=== PATIENT | male | born 1950 | race Caucasian/White ===

== ENCOUNTER 2023-07-18 06:02 | Emergency (ER) | payer MEDICARE, MEDICAID, SELFPAY ==
[2023-07-18] VITALS (13 sets, daily range): BP systolic 99–119; BP diastolic 48–67; PULSE 67–82; TEMP 37.1; O2SAT 92–97; BMI 41.6
[2023-07-18 06:21] LABS: Basophils Absolute Auto 0.1 10^3/uL (0.0-0.1); Basophils Percent Auto 0.8 % (0.2-2.0); Eosinophils Absolute Auto 0.2 10^3/uL (0.0-0.7); Eosinophils Percent Auto 2.5 % (0.9-7.0); Hematocrit 27.7 % (42.0-54.0); Hemoglobin 8.5 g/dL (14.0-18.0); Immature Granulocytes Abs Auto 0.04 10^3/uL (0.00-0.03); Immature Granulocytes Pct Auto 0.6 % (0.0-0.5); Lymphocytes Absolute Auto 1.2 10^3/uL (1.2-3.8); Lymphocytes Percent Auto 18.9 % (20.5-60.0); Mean Corpuscular HGB Conc 30.7 g/dL (29.9-35.2); Mean Corpuscular Hemoglobin 32.9 pg (25.9-34.0); Mean Corpuscular Volume 107.4 fL (80.0-94.0); Mean Platelet Volume 12.7 fL (9.5-13.5); Monocytes Absolute Auto 0.4 10^3/uL (0.3-0.8); Monocytes Percent Auto 5.8 % (1.7-12.0); Neutrophils Absolute Auto 4.6 10^3/uL (1.4-6.5); Neutrophils Percent Auto 71.4 % (43.0-75.0); Platelet Count 126 10^3/uL (150-450); Red Blood Count 2.58 10^6/uL (4.70-6.10); Red Cell Distribution Width 15.9 % (11.0-15.0); White Blood Count 6.4 10^3/uL (4.0-11.0)
--- NOTE | 2023-07-18 06:23 | ED.CHESTPAI1 ---
HPI - Chest Pain General Chief Complaint: Chest Pain Stated Complaint: CHEST PAIN Time Seen by Provider: 07/18/23 06:04 Source: patient Mode of arrival: ambulance Limitations: no limitations History of Present Illness HPI narrative: This 73-year-old male with a history of coronary artery disease status post bypass surgery in [address] Verdugo, cardiology at [facility], is brought to the emergency department by EMS from home for evaluation of shortness of breath and midsternal chest pain. The patient states his shortness of breath has been coming and going for the past month or 2. It has recently become worse. He has been having intermittent midsternal chest pain with left arm numbness for the past week. 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 He has home oxygen dependent. He denies any fever. He has exertional dyspnea stating to me that he can only walk approximately 20 yards without becoming short of breath. He does not know if he has gained any weight but states his stomach is larger than it typically is and his legs do feel heavy. He denies any dizziness or diaphoresis. No medications were given prior to arrival. He states he takes a daily baby aspirin but does not think he is on any other blood thinners. He describes his chest pain as heaviness. Related Data Home Medications ?Medication ?Instructions ?Recorded ?Confirmed hydroxyzine HCl 50 mg tablet 50 mg PO .pm 07/18/23 07/18/23 lisinopril 2.5 mg tablet 2.5 mg PO DAILY 07/18/23 07/18/23 metformin 750 mg tablet,extended 750 mg PO DAILY 07/18/23 07/18/23 release 24 hr metoprolol tartrate 25 mg tablet 25 mg PO Q12H 07/18/23 07/18/23 nitroglycerin 0.4 mg sublingual 0.4 mg sublingual Q5M PRN chest 07/18/23 07/18/23 tablet pain pantoprazole 20 mg tablet,delayed 20 mg PO Q12H 07/18/23 07/18/23 release paroxetine HCl 10 mg tablet 10 mg PO DAILY 07/18/23 07/18/23 pioglitazone 30 mg tablet 30 mg PO DAILY 07/18/23 07/18/23 simvastatin 40 mg tablet 40 mg PO DAILY 07/18/23 07/18/23 Allergies Allergy/AdvReac Type Severity Reaction Status Date / Time No Known Drug Allergies Allergy Verified 07/18/23 06:05 Review of Systems ROS Status of ROS 10 or more systems reviewed and unremarkable except as noted in history and below Exam Narrative Exam Narrative: Vital signs and Nursing Notes reviewed: He is afebrile with a normal pulse, blood pressure is moderately low at 104/54, his pulse ox is stable on 3 L nasal cannula at 96% General: Awake, alert, oriented, pale, obese male, no respiratory distress, he is speaking in complete sentences HEENT: Normocephalic atraumatic, mucous membranes are moist and pink, eyes are clear, normal conjunctiva, vision is grossly intact, posterior pharynx is normal in appearance. Neck: Supple, no meningeal signs, no anterior or posterior cervical lymphadenopathy, no JVD Chest: Diffusely diminished breath sounds, no wheezing rhonchi or rales appreciated, no accessory muscle use CVS: Regular rate and rhythm S1-S2, systolic ejection murmur grade 2-3/6 at the left sternal border. Pulses are brisk and equal bilaterally ABD: Soft, nondistended, nontender, no rebound guarding or rigidity, bowel sounds are normal, no pulsatile masses appreciated Extremities: Moving all extremities, 2+ pitting edema to the lower extremities Skin: Pale, no skin rash noted Neuro: No focal deficits Constitutional Vital Signs, click to edit/add: Last Vital Signs Temp 98.8 F 07/18/23 06:06 Pulse 67 07/18/23 06:30 Resp 25 H 07/18/23 06:30 BP 111/67 07/18/23 06:30 Pulse Ox 96 07/18/23 06:40 O2 Del Method Nasal Cannula 07/18/23 06:40 O2 Flow Rate 3 07/18/23 06:40 Course Vital Signs Vital signs: Vital Signs Temperature 98.8 F 07/18/23 06:06 Pulse Rate 70 07/18/23 06:06 Respiratory Rate 26 H 07/18/23 06:06 Blood Pressure 104/54 07/18/23 06:06 Pulse Oximetry 96 07/18/23 06:06 Oxygen Delivery Method Nasal Cannula 07/18/23 06:06 Oxygen Delivery Flow Rate 3 07/18/23 06:06 Temperature 98.8 F 07/18/23 06:06 Pulse Rate 67 07/18/23 06:30 Respiratory Rate 25 H 07/18/23 06:30 Blood Pressure 111/67 07/18/23 06:30 Pulse Oximetry 96 07/18/23 06:40 Oxygen Delivery Method Nasal Cannula 07/18/23 06:40 Oxygen Delivery Flow Rate 3 07/18/23 06:40 MDM - Chest Pain MDM Narrative Medical decision making narrative: This 73-year-old male with a history of coronary artery disease status post bypass surgery in 2007 presents for evaluation of several months of increasing shortness of breath with dyspnea on exertion and 1 week of intermittent chest pain/pressure. He takes a daily baby aspirin for anticoagulation but is otherwise not on any Plavix or other blood thinners. The patient has a history of COPD and is oxygen dependent but has never been a smoker. His lungs are diffusely diminished. EKG done upon arrival was a sinus rhythm at 68 bpm with diffusely flattened T waves. CXR shows a large pleural effusion on the left. Hemoglobin is low at 8.5. Creatinine is mildly elevated at 1.31. He was given 20mg IV lasix for the fluid overload. Troponin is 144.6. BNP is pending. A repeat 2 view CXR was ordered due to the limited as the radiologist interpretation was limited by his habitus and position on the bed. Medical Records Data Medical records narrative: The [address] [address] XRay Report Signed Patient: BRIAN MANDEL MR#: [id number] : 1950 Acct:[id number] Age/Sex: 73 / M ADM Date: 07/18/23 Loc: ER Attending Dr: Ordering Physician: Trevor Moreira Date of Service: 07/18/23 Procedure(s): XR chest 1V Accession Number(s): [id number] cc: Trevor Moreira; Physician,Non-Staff M.D.~ The [address] [address] Patient Name: BRIAN MANDEL MRN: [id number] date: 1950 Sex: M Assigned Patient Location: ED.MAIN Current Patient Location: ED.MAIN Accession/Order Number: [id number] Exam Date: 07/18/2023 06:20 Report Date: 07/18/2023 06:42 At the request of: TREVOR MARKER Procedure: XR chest 1V EXAMINATION: XR chest 1V HISTORY: CP ; chest pain, shortness of breath COMPARISON: XR chest 05/23/2020, CT chest 05/23/2020 FINDINGS: LUNGS: Dense opacities obscuring the majority the left lung. Opacities obscuring lateral right costophrenic angle. VASCULATURE: No increased pulmonary vasculature. PLEURA: No pneumothorax, effusion, or pleural thickening. CARDIAC: Cannot assess, but suspected to be enlarged. MEDIASTINUM: Prior sternotomy. BONES: No fracture or visible bone lesion. OTHER: Negative. XR/XR chest 1V IMPRESSION: 1. Examination is very limited due to patient body habitus and AP portable technique. 2. Opacification of majority of left lung. Prior CT study showed cardiomegaly and a large left pericardial fat pad which could account for findings on today's study. Marked pulmonary infiltrates cannot be excluded. 3. Obscuration of right lateral costal phrenic angle; atelectasis versus infiltrates. Lab Data Attestation: I reviewed the patient's lab results. Labs: Lab Results 07/18/23 Range/Units 06:11 WBC 6.4 (4.0-11.0) 10^3/uL RBC 2.58 L (4.70-6.10) 10^6/uL Hgb 8.5 L (14.0-18.0) g/dL Hct 27.7 L (42.0-54.0) % MCV 107.4 H (80.0-94.0) fL MCH 32.9 (25.9-34.0) pg MCHC 30.7 (29.9-35.2) g/dL RDW 15.9 H (11.0-15.0) % Plt Count 126 L (150-450) 10^3/uL MPV 12.7 (9.5-13.5) fL Neut % (Auto) 71.4 (43.0-75.0) % Lymph % (Auto) 18.9 L (20.5-60.0) % Alexander % (Auto) 5.8 (1.7-12.0) % Eos % (Auto) 2.5 (0.9-7.0) % Baso % (Auto) 0.8 (0.2-2.0) % Neut # (Auto) 4.6 (1.4-6.5) 10^3/uL Lymph # (Auto) 1.2 (1.2-3.8) 10^3/uL Alexander # (Auto) 0.4 (0.3-0.8) 10^3/uL Eos # (Auto) 0.2 (0.0-0.7) 10^3/uL Baso # (Auto) 0.1 (0.0-0.1) 10^3/uL Abs Immat Gran (auto) 0.04 H (0.00-0.03) 10^3/uL Imm/Tot Granulo (auto) 0.6 H (0.0-0.5) % PT 11.3 (9.0-11.6) sec INR 1.07 Sodium 141 (136-145) mmol/L Potassium 4.2 (3.5-5.1) mmol/L Chloride 103 (98-107) mmol/L Carbon Dioxide 33.4 H (21.0-32.0) mmol/L Anion Gap 8.8 BUN 18.0 (7.0-18.0) mg/dL Creatinine 1.31 H (0.70-1.30) mg/dL Est GFR ( Amer) >60 (>=60) Est GFR (Non-Af Amer) 53 L (>=60) BUN/Creatinine Ratio 13.7 Glucose 127 H (74-106) mg/dL Calcium 9.1 (8.5-10.1) mg/dL Total Bilirubin 0.6 (0.2-1.0) mg/dL AST 20 (15-37) U/L ALT 13 L (16-63) U/L Alkaline Phosphatase 94 (46-116) U/L Troponin I High Sens 144.6 H* (4.0-76.1) pg/mL NT-Pro-B Natriuret Pep 1498.0 (<=1800.0) pg/mL Total Protein 7.1 (6.4-8.2) g/dL Albumin 2.9 L (3.4-5.0) g/dL Globulin 4.2 g/dL Albumin/Globulin Ratio 0.7 ECG Data Attestation: I personally reviewed and interpreted this ECG as follows: (Sinus rhythm at 68 bpm, normal axis, diffusely flattened T waves, no acute ST segment elevation or T wave inversion) Heart Score History: Moderately Suspicious ECG: Normal Age: >65 years Risk Factors: >3 Risk Factors/ HX of CAD:2 Discharge Plan Discharge Patient Disposition: Still a Patient
--- NOTE | 2023-07-18 06:28 | XR_ITS ---
The [address] [address] Patient Name: BRIAN MANDEL MRN: [id number] date: 1950 Sex: M Assigned Patient Location: ED.MAIN Current Patient Location: ED.MAIN Accession/Order Number: [id number] Exam Date: 07/18/2023 06:20 Report Date: 07/18/2023 06:42 At the request of: TREVOR MARKER Procedure: XR chest 1V EXAMINATION: XR chest 1V HISTORY: CP ; chest pain, shortness of breath COMPARISON: XR chest 05/23/2020, CT chest 05/23/2020 FINDINGS: LUNGS: Dense opacities obscuring the majority the left lung. Opacities obscuring lateral right costophrenic angle. VASCULATURE: No increased pulmonary vasculature. PLEURA: No pneumothorax, effusion, or pleural thickening. CARDIAC: Cannot assess, but suspected to be enlarged. MEDIASTINUM: Prior sternotomy. BONES: No fracture or visible bone lesion. OTHER: Negative. XR/XR chest 1V IMPRESSION: 1. Examination is very limited due to patient body habitus and AP portable technique. 2. Opacification of majority of left lung. Prior CT study showed cardiomegaly and a large left pericardial fat pad which could account for findings on today's study. Marked pulmonary infiltrates cannot be excluded. 3. Obscuration of right lateral costal phrenic angle; atelectasis versus infiltrates. Electronically authenticated by: DAGOBERTO OROPEZA Date: 07/18/2023 06:42
[2023-07-18 06:36] LABS: Alanine Aminotransferase 13 U/L (16-63); Albumin Globulin Ratio 0.7; Albumin Level 2.9 g/dL (3.4-5.0); Alkaline Phosphatase 94 U/L (46-116); Anion Gap 8.8; Aspartate Amino Transferase 20 U/L (15-37); BUN Creatinine Ratio 13.7; Bilirubin Total 0.6 mg/dL (0.2-1.0); Calcium 9.1 mg/dL (8.5-10.1); Carbon Dioxide 33.4 mmol/L (21.0-32.0); Chloride 103 mmol/L (98-107); Estimated GFR (African America >60 (>=60); Estimated GFR (Non-African Ame 53 (>=60); Globulin 4.2 g/dL; Glucose 127 mg/dL (74-106); Potassium 4.2 mmol/L (3.5-5.1); Sodium 141 mmol/L (136-145); Total Protein 7.1 g/dL (6.4-8.2)
[2023-07-18] MEDS: ASPIRIN 81 MG TAB.CHEW 324 MG PO (06:37)
[2023-07-18 06:39] LABS: INR 1.07; Prothrombin Time 11.3 sec (9.0-11.6)
[2023-07-18 06:48] LABS: Troponin I High Sensitivity 144.6 pg/mL (4.0-76.1)
--- NOTE | 2023-07-18 06:49 | XR_ITS ---
The [address] [address] Patient Name: BRIAN MANDEL MRN: [id number] date: 1950 Sex: M Assigned Patient Location: ER Current Patient Location: ER Accession/Order Number: [id number] Exam Date: 07/18/2023 07:10 Report Date: 07/18/2023 07:42 At the request of: TREVOR MARKER Procedure: XR chest 2V EXAMINATION: XR chest 2V HISTORY: SOB COMPARISON: XR chest 07/18/2023 6:14 AM, 05/23/2020 FINDINGS: LUNGS: Opacity obscuring the right lateral costophrenic angle. Opacities obscuring the mid and lower left lung. VASCULATURE: No increased pulmonary vasculature. PLEURA: No pneumothorax, effusion, or pleural thickening. CARDIAC: Suspect cardiomegaly. MEDIASTINUM: Prior sternotomy. No appreciable abnormal widening. BONES: No fracture or visible bone lesion. OTHER: Negative. XR/XR chest 2V IMPRESSION: 1. Mild infiltrates versus atelectasis within right lateral costophrenic angle. Pleural effusion is not completely excluded. 2. Suspect moderate-marked left basilar infiltrates. Pleural effusion is not excluded. Electronically authenticated by: DAGOBERTO OROPEZA Date: 07/18/2023 07:42
[2023-07-18] MEDS: FUROSEMIDE 20 MG/2 ML VIAL IVP (07:00)
--- NOTE | 2023-07-18 10:20 | PC.NURSE ---
Report called to [facility] [place] [id number] [address] [phone]
--- NOTE | 2023-07-18 12:08 | ECG_ITS ---
The [facility] Test Date: 2023-07-18 Pat Name: BRIAN MANDEL Department: Room: - Gender: Male Notereader: : 1950 Requested By: [id number] Order Number: [id number] Reading MD: LORETTA AMBROCIO Measurements Intervals [place] Rate: 68 P: 13 UT: 192 QRS: 43 QRSD: 74 T: 150 QT: 306 QTc: 323 Interpretive Statements 1100 Sinus rhythm 4068 Nonspecific Twave abnormality 8305 Short QTc interval 9150 abnormal ECG Compared to ECG 05/24/2020 18:45:50 T-wave abnormality no longer present Electronically Signed On 07-19-2023 8:51:04 EDT by LORETTA AMBROCIO
== END 2023-07-18 11:11 | disposition short-term general hospital (02) ==
PROVIDERS: Emergency Medicine; Emergency Provider Emergency Medicine
DX: I50.9 Heart failure, unspecified (principal); R79.89 Other specified abnormal findings of blood chemistry; I25.10 Atherosclerotic heart disease of native coronary artery without angina pectoris; J43.9 Emphysema, unspecified; E66.9 Obesity, unspecified; Z68.41 Body mass index [BMI] 40.0-44.9, adult; Z95.1 Presence of aortocoronary bypass graft
CPT/HCPCS: 36415; 71045; 71046; 80053; 83880; 84484; 85025; 85610; 93005; 96374; 99285

== ENCOUNTER 2023-08-06 12:13 | Outpatient (REF) | payer MEDICARE, MEDICAID, SELFPAY ==
--- OUTSIDE RECORDS SUMMARY | 2023-08-06 12:17 | XMS_ITS | CCD ---
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 above: Performed By: #### Tommy ENAMORADO CMP, 90573-2 ####[facility] ([id number])[address] [place] [address] 13358 ABSOLUTE NEUTROPHIL 2.1 X10E9/L Normal 1.5-6.6 [facility] Comment on above: Performed By: #### Tommy ENAMORADO CMP, 00235-6 ####[facility] ([id number])[address] [place] [address] 94505 Basophils/100 WBC (Bld) 1.0 % Normal [facility] Comment on above: Performed By: #### Tommy ENAMORADO [facility], 93172-6 ####[facility] ([id number])[address] [place] [address] 59305 Eosinophils (Bld) [#/Vol] 0.3 10*3/uL Normal 0.0-0.4 [facility] Comment on above: Performed By: #### Tommy ENAMORADO [facility], 98824-8 ####[facility] ([id number])[address] [place] [address] 43440 Eosinophils/100 WBC (Bld) 6.4 % Normal [facility] Comment on above: Performed By: #### Tommy ENAMORADO CMP, 44668-4 ####[facility] ([id number])[address] [place] [address] 71788 Erythrocyte distribution width (RBC) [Ratio] 15.7 % High 11.5-15.0 [facility] Comment on above: Performed By: #### Tommy ENAMORADO CMP, ####[facility] ([id number])[address] [place] [address] 16811 Hematocrit (Bld) [Volume fraction] 21.8 % Low 39-49 [facility] Comment on above: Performed By: #### Tommy ENAMORADO CMP, ####[facility] ([id number])[address] [place] [address] 98264 Hemoglobin (Bld) [Mass/Vol] 7.3 g/dL Low 13.0-17.0 [facility] Comment on above: Performed By: #### Tommy ENAMORADO CMP, ####[facility] ([id number])[address] [place] [address] 49827 Lymphocytes (Bld) [#/Vol] 1.4 10*3/uL Normal 1.0-3.5 [facility] Comment on above: Performed By: #### Tommy ENAMORADO [facility], ####[facility] ([id number])[address] [place] [address] 01721 Lymphocytes/100 WBC (Bld) 33.5 % Normal [facility] Comment on above: Performed By: #### Tommy ENAMORADO CMP, ####[facility] ([id number])[address] [place] [address] 04398 MCH (RBC) [Entitic mass] 34.0 pg Normal 27-34 [facility] Comment on above: Performed By: #### Tommy ENAMORADO CMP, ####[facility] ([id number])[address] [place] [address] 02745 MCHC (RBC) [Mass/Vol] 33.5 g/dL Normal 32-36 [facility] Comment on above: Performed By: #### Tommy ENAMORADO CMP, ####[facility] ([id number])[address] [place] [address] [place] [address] MCV (RBC) [Entitic vol] 102 fL High 80-100 [facility] Comment on above: Performed By: #### Tommy ENAMORADO CMP, ####[facility] ([id number])[address] [place] [address] 91233 Monocytes (Bld) [#/Vol] 0.4 10*3/uL Normal 0-0.9 [facility] Comment on above: Performed By: #### Tommy ENAMORADO CMP, ####[facility] ([id number])[address] [place] [address] 22907 Monocytes/100 WBC (Bld) 9.5 % Normal [facility] Comment on above: Performed By: #### Tommy ENAMORADO CMP, ####[facility] ([id number])[address] [place] [address] 35541 Neutrophils/100 WBC (Bld) 49.6 % Normal [facility] Comment on above: Performed By: #### Tommy ENAMORADO [facility], ####[facility] ([id number])[address] [place] [address] 92563 Platelet mean volume (Bld) [Entitic vol] 9.7 fL Normal 7-12 [facility] Comment on above: Performed By: #### Tommy ENAMORADO CMP, ####[facility] ([id number])[address] [place] [address] 36072 Platelets (Bld) [#/Vol] 125 10*3/uL Low 150-450 [facility] Comment on above: Performed By: #### Tommy ENAMORADO CMP, ####[facility] ([id number])[address] [place] [address] 66443 RBC COUNT 2.14 X10E12/L Low 4.10-5.70 [facility] Comment on above: Performed By: #### C BCA, CMP, ####[facility] ([id number])[address] [place] [address] 15676 WBC (Bld) [#/Vol] 4.3 10*3/uL Normal 4.0-11.0 [facility] Comment on above: Performed By: #### C BCA, CMP, ####[facility] ([id number])[address] [place] [address] 65360 COMPREHENSIVE METABOLIC PANE Azael 07-28-2023 Albumin [Mass/Vol] 2.9 g/dL Low 3.2-5.3 [facility] Comment on above: Performed By: #### C BCA, CMP, ####[facility] ([id number])[address] [place] [address] 05570 ALP [Catalytic activity/Vol] 154 U/L High 39-130 [facility] Comment on above: Performed By: #### C BCA, CMP, ####[facility] ([id number])[address] [place] [address] 61289 ALT [Catalytic activity/Vol] 39 U/L Normal 0-40 [facility] Comment on above: Performed By: #### C BCA, CMP, ####[facility] ([id number])[address] [place] [address] [place] [address] Anion gap [Moles/Vol] 5 mmol/L Normal 5-15 [facility] Comment on above: Performed By: #### C BCA, CMP, ####[facility] ([id number])[address] [place] [address] 03200 AST [Catalytic activity/Vol] 55 U/L High 0-41 [facility] Comment on above: Performed By: #### C BCA, CMP, 43482-1 ####[facility] ([id number])[address] [place] [address] 26058 Bilirubin [Mass/Vol] 0.7 mg/dL Normal 0.3-1.2 [facility] Comment on above: Performed By: #### Tommy ENAMORADO, CMP, 62125-5 ####[facility] ([id number])[address] [place] [address] 78011 Calcium [Mass/Vol] 8.6 mg/dL Normal 8.5-10.5 [facility] Comment on above: Performed By: #### Tommy ENAMORADO CMP, 80961-7 ####[facility] ([id number])[address] [place] [address] 05432 Chloride [Moles/Vol] 103 mmol/L Normal 98-109 [facility] Comment on above: Performed By: #### Tommy ENAMORADO [facility], 81198-8 ####[facility] ([id number])[address] [place] [address] 67983 CO2 [Moles/Vol] 30 mmol/L Normal 22-32 [facility] Comment on above: Performed By: #### Tommy ENAMORADO CMP, 51886-1 ####[facility] ([id number])[address] [place] [address] 80683 Creatinine [Mass/Vol] 0.91 mg/dL Normal 0.70-1.20 [facility] Comment on above: Result Comment: METH OD TRACEABLE TO IDMS STANDARD Performed By: #### Tommy ENAMORADO CMP, 62153-9 ####[facility] ([id number])[address] [place] [address] 32087 GFR/1.73 sq M.predicted among non-blacks MDRD (S/P/Bld) [Vol rate/Area] 88 mL/min/{1.73_m2} Normal >59 [facility] Comment on above: Result Comment: Reported eGFR is based on the CKD-EPI 2020 equation that does not use a race coefficient. Performed By: #### C EBONY ENAMORADO, 03397-5 ####[facility] ([id number])[address] [place] [address] 80840 Glucose [Mass/Vol] 107 mg/dL High 65-99 [facility] Comment on above: Performed By: #### C KELSEA [facility], 03557-3 ####[facility] ([id number])[address] [place] [address] 37527 Potassium [Moles/Vol] 4.5 mmol/L Normal 3.5-5.0 [facility] Comment on above: Performed By: #### C EBONY ENAMORADO, 54664-6 ####[facility] ([id number])[address] [place] [address] 54367 Protein [Mass/Vol] 6.4 g/dL Normal 6.0-8.0 [facility] Comment on above: Performed By: #### C KELSEA [facility], 01172-8 ####[facility] ([id number])[address] [place] [address] 32603 Sodium [Moles/Vol] 138 mmol/L Normal 134-146 [facility] Comment on above: Performed By: #### C KELSEA [facility], 23394-7 ####[facility] ([id number])[address] [place] [address] 92610 Urea nitrogen [Mass/Vol] 17 mg/dL Normal 5-27 [facility] Comment on above: Performed By: #### C KELSEA [facility], 33438-5 ####[facility] ([id number])[address] [place] [address] [place] [address] MAGNESIUMon 07-28-2023 Magnesium [Mass/Vol] 1.8 mg/dL Normal 1.8-2.6 [facility] Comment on above: Performed By: #### C KELSEA, [facility], 36598-8 ####[facility] ([id number])[address] [place] [address] 79484 CBC AND AUTO DIFFon 07-27-19 24 ABSOLUTE BASOPHIL 0.1 X10E9/L Normal 0.0-0.2 [facility] Comment on above: Performed By: #### C KELSEA, 66362-5, 48622-4, BMP, 59283-7 #### [facility] ([id number]) [address] [place] [address] 33029 ABSOLUTE NEUTROPHIL 2.2 X10E9/L Normal 1.5-6.6 [facility] Comment on above: Performed By: #### C KELSEA, 47528-6, 82272-3, BMP, 15829-0 #### [facility] ([id number]) [address] [place] [address] 06320 Basophils/100 WBC (Bld) 1.3 % Normal [facility] Comment on above: Performed By: #### C KELSEA, 07522-4, 20687-3, BMP, 23189-2 #### [facility] ([id number]) [address] [place] [address] 74922 Eosinophils (Bld) [#/Vol] 0.3 10*3/uL Normal 0.0-0.4 [facility] Comment on above: Performed By: #### C BCA, 82932-4, 40706-2, BMP, 39409-8 #### [facility] ([id number]) [address] [place] [address] 25446 Eosinophils/100 WBC (Bld) 6.9 % Normal [facility] Comment on above: Performed By: #### C KELSEA, 06879-6, 13860-3, BMP, 06883-0 #### [facility] ([id number]) [address] [place] [address] [place] [address] Erythrocyte distribution width (RBC) [Ratio] 15.6 % High 11.5-15.0 [facility] Comment on above: Performed By: #### C KELSEA, 50107-7, 51426-4, BMP, 25049-5 #### [facility] ([id number]) [address] [place] [address] 74866 Hematocrit (Bld) [Volume fraction] 23.4 % Low 39-49 [facility] Comment on above: Performed By: #### C KELSEA, 12997-9, 32376-7, BMP, 86441-0 #### [facility] ([id number]) [address] [place] [address] 76871 Hemoglobin (Bld) [Mass/Vol] 8.0 g/dL Low 13.0-17.0 [facility] Comment on above: Performed By: #### C KELSEA, 11515-4, 31535-1, BMP, 07046-0 #### [facility] ([id number]) [address] [place] [address] 44716 Lymphocytes (Bld) [#/Vol] 1.2 10*3/uL Normal 1.0-3.5 [facility] Comment on above: Performed By: #### C KELSEA, 00980-1, 38868-1, BMP, 50835-1 #### [facility] ([id number]) [address] [place] [address] 92596 Lymphocytes/100 WBC (Bld) 28.5 % Normal [facility] Comment on above: Performed By: #### C KELSEA, 69153-6, 47526-0, BMP, 37574-9 #### [facility] ([id number]) [address] [place] [address] 66739 MCH (RBC) [Entitic mass] 34.7 pg High 27-34 [facility] Comment on above: Performed By: #### C BCA, 30350-7, 58058-9, BMP, 17837-9 #### [facility] ([id number]) [address] [place] [address] 71914 MCHC (RBC) [Mass/Vol] 34.0 g/dL Normal 32-36 [facility] Comment on above: Performed By: #### Tommy ENAMORADO, 81087-6, 53838-5, BMP, 77629-2 #### [facility] ([id number]) [address] [place] [address] 78313 MCV (RBC) [Entitic vol] 102 fL High 80-100 [facility] Comment on above: Performed By: #### Tommy ENAMORADO, 21593-1, 33913-7, BMP, 75789-8 #### [facility] ([id number]) [address] [place] [address] 28362 Monocytes (Bld) [#/Vol] 0.4 10*3/uL Normal 0-0.9 [facility] Comment on above: Performed By: #### Tommy ENAMORADO, 41138-7, 19277-7, BMP, 19397-0 #### [facility] ([id number]) [address] [place] [address] 10042 Monocytes/100 WBC (Bld) 10.3 % Normal [facility] Comment on above: Performed By: #### Tommy ENAMORADO, 66273-2, 81725-0, BMP, 47438-0 #### [facility] ([id number]) [address] [place] [address] 54534 Neutrophils/100 WBC (Bld) 53.0 % Normal [facility] Comment on above: Performed By: #### Tommy ENAMORADO, 59253-0, 76924-3, BMP, 89231-7 #### [facility] ([id number]) [address] [place] [address] 79601 Platelet mean volume (Bld) [Entitic vol] 9.9 fL Normal 7-12 [facility] Comment on above: Performed By: #### Tommy ENAMORADO, 52735-5, 12641-4, BMP, 31018-8 #### [facility] ([id number]) [address] [place] [address] 34342 Platelets (Bld) [#/Vol] 120 10*3/uL Low 150-450 [facility] Comment on above: Performed By: #### Tommy ENAMORADO, 82773-9, 52058-7, BMP, 78735-1 #### [facility] ([id number]) [address] [place] [address] 88938 RBC COUNT 2.29 X10E12/L Low 4.10-5.70 [facility] Comment on above: Performed By: #### Tommy ENAMORADO, 11003-6, 77454-9, BMP, 69259-0 #### [facility] ([id number]) [address] [place] [address] 75532 WBC (Bld) [#/Vol] 4.1 10*3/uL Normal 4.0-11.0 [facility] Comment on above: Performed By: #### Tommy ENAMORADO, 61199-7, 35983-5, BMP, 33243-8 #### [facility] ([id number]) [address] [place] [address] 38863 COMPREHENSIVE METABOLIC PANE Azael 07-27-2023 Albumin [Mass/Vol] 2.9 g/dL Low 3.2-5.3 [facility] Comment on above: Performed By: #### Tommy ENAMORADO, 12828-6, 61423-2, BMP, 08549-0 #### [facility] ([id number]) [address] [place] [address] 90753 ALP [Catalytic activity/Vol] 138 U/L High 39-130 [facility] Comment on above: Performed By: #### C BCA, 87217-2, 71665-8, BMP, 48451-5 #### [facility] ([id number]) [address] [place] [address] 83883 ALT [Catalytic activity/Vol] 32 U/L Normal 0-40 [facility] Comment on above: Performed By: #### C BCA, 15507-9, 07670-0, BMP, 88063-4 #### [facility] ([id number]) [address] [place] [address] 15978 Anion gap [Moles/Vol] 6 mmol/L Normal 5-15 [facility] Comment on above: Performed By: #### C BCA, 91099-5, 09926-3, BMP, 10758-9 #### [facility] ([id number]) [address] [place] [address] 72378 AST [Catalytic activity/Vol] 46 U/L High 0-41 [facility] Comment on above: Performed By: #### C BCA, 28264-7, 04593-6, BMP, 03866-4 #### [facility] ([id number]) [address] [place] [address] 95820 Bilirubin [Mass/Vol] 0.7 mg/dL Normal 0.3-1.2 [facility] Comment on above: Performed By: #### C BCA, 60892-4, 12272-3, BMP, 90868-3 #### [facility] ([id number]) [address] [place] [address] 06643 Calcium [Mass/Vol] 8.6 mg/dL Normal 8.5-10.5 [facility] Comment on above: Performed By: #### C BCA, 35150-0, 66153-6, BMP, 98798-3 #### [facility] ([id number]) [address] [place] [address] 96844 Chloride [Moles/Vol] 103 mmol/L Normal 98-109 [facility] Comment on above: Performed By: #### C BCA, 62595-4, 28110-1, BMP, 05152-7 #### [facility] ([id number]) [address] [place] [address] 57408 CO2 [Moles/Vol] 28 mmol/L Normal 22-32 [facility] Comment on above: Performed By: #### C BCA, 18270-7, 78854-6, BMP, 68617-8 #### [facility] ([id number]) [address] [place] [address] 83020 Creatinine [Mass/Vol] 1.03 mg/dL Normal 0.70-1.20 [facility] Comment on above: Result Comment: METH OD TRACEABLE TO IDMS STANDARD Performed By: #### C BCA, 92844-1, 75659-3, BMP, 33006-4 #### [facility] ([id number]) [address] [place] [address] 33036 GFR/1.73 sq M.predicted among non-blacks MDRD (S/P/Bld) [Vol rate/Area] 76 mL/min/{1.73_m2} Normal >59 [facility] Comment on above: Result Comment: Reported eGFR is based on the CKD-EPI 2020 equation that does not use a race coefficient. Performed By: #### C BCA, 23807-4, 76951-1, BMP, 33181-2 #### [facility] ([id number]) [address] [place] [address] 35108 Glucose [Mass/Vol] 96 mg/dL Normal 65-99 [facility] Comment on above: Performed By: #### C BCA, 46173-6, 21876-3, BMP, 65756-7 #### [facility] ([id number]) [address] [place] [address] 84669 Potassium [Moles/Vol] 4.5 mmol/L Normal 3.5-5.0 [facility] Comment on above: Performed By: #### C BCA, 22920-2, 68667-5, BMP, 91722-9 #### [facility] ([id number]) [address] [place] [address] 51175 Protein [Mass/Vol] 6.6 g/dL Normal 6.0-8.0 [facility] Comment on above: Performed By: #### C BCA, 15745-3, 87785-0, BMP, 06384-6 #### [facility] ([id number]) [address] [place] [address] 46607 Sodium [Moles/Vol] 137 mmol/L Normal 134-146 [facility] Comment on above: Performed By: #### C BCA, 97147-5, 33516-0, BMP, 70069-7 #### [facility] ([id number]) [address] [place] [address] 34562 Urea nitrogen [Mass/Vol] 21 mg/dL Normal 5-27 [facility] Comment on above: Performed By: #### C BCA, 42883-7, 49870-0, BMP, 46808-2 #### [facility] ([id number]) [address] [place] [address] 11302 Glucose Glucometer (BldC) [M ass/Vol]on 07-27-2023 Glucose [Mass/Vol] 138 mg/dL High 65-99 [facility] Glucose [Mass/Vol] 158 mg/dL High 65-99 [facility] Glucose [Mass/Vol] 158 mg/dL High 65-99 [facility] MAGNESIUMon 07-27-2023 Magnesium [Mass/Vol] 1.9 mg/dL Normal 1.8-2.6 [facility] Comment on above: Performed By: #### C BCA, 61102-4, 44814-4, BMP, 24875-7 #### [facility] ([id number]) [address] [place] [address] 95363 Vancomycin trough [Mass/Vol] on 07-27-2023 VANCOMYCIN TROUGH 16.3 ug/mL Normal 5.0-20.[address] [facility] Comment on above: Performed By: #### Tommy ENAMORADO, 32717-2, 93852-9, BMP, 67969-5 #### [facility] ([id number]) [address] [place] [address] 99098 CBC AND AUTO DIFFon 07-26-19 ABSOLUTE BASOPHIL 0.0 X10E9/L Normal 0.0-0.2 [facility] Comment on above: Performed By: #### Tommy ENAMORADO, 39774-5, 91016-3, BMP, 09009-5 #### [facility] ([id number]) [address] [place] [address] 51747 ABSOLUTE NEUTROPHIL 1.8 X10E9/L Normal 1.5-6.6 [facility] Comment on above: Performed By: #### Tommy ENAMORADO, 88602-2, 44270-3, BMP, 75236-1 #### [facility] ([id number]) [address] [place] [address] 85962 Basophils/100 WBC (Bld) 0.9 % Normal [facility] Comment on above: Performed By: #### Tommy ENAMORADO, 88776-3, 46679-2, BMP, 07726-7 #### [facility] ([id number]) [address] [place] [address] 34143 Eosinophils (Bld) [#/Vol] 0.2 10*3/uL Normal 0.0-0.4 [facility] Comment on above: Performed By: #### Tommy ENAMORADO, 21796-6, 14241-8, BMP, 45422-1 #### [facility] ([id number]) [address] [place] [address] 30398 Eosinophils/100 WBC (Bld) 6.8 % Normal [facility] Comment on above: Performed By: #### Tommy ENAMORADO, 22553-1, 10979-0, BMP, 06395-9 #### [facility] ([id number]) [address] [place] [address] 04254 Erythrocyte distribution width (RBC) [Ratio] 16.1 % High 11.5-15.0 [facility] Comment on above: Performed By: #### Tommy ENAMORADO, 59833-1, 96023-2, BMP, 09510-5 #### [facility] ([id number]) [address] [place] [address] 31118 Hematocrit (Bld) [Volume fraction] 22.1 % Low 39-49 [facility] Comment on above: Performed By: #### Tommy ENAMORADO, 97687-1, 71008-6, BMP, 69241-0 #### [facility] ([id number]) [address] [place] [address] 46005 Hemoglobin (Bld) [Mass/Vol] 7.5 g/dL Low 13.0-17.0 [facility] Comment on above: Performed By: #### Tommy ENAMORADO, 92255-5, 78129-7, BMP, 32546-7 #### [facility] ([id number]) [address] [place] [address] 48540 Lymphocytes (Bld) [#/Vol] 0.8 10*3/uL Low 1.0-3.5 [facility] Comment on above: Performed By: #### Tommy ENAMORADO, 69542-3, 41493-3, BMP, 96740-2 #### [facility] ([id number]) [address] [place] [address] 97016 Lymphocytes/100 WBC (Bld) 25.6 % Normal [facility] Comment on above: Performed By: #### Tommy ENAMORADO, 95917-4, 31833-4, BMP, 46605-6 #### [facility] ([id number]) [address] [place] [address] 37193 MCH (RBC) [Entitic mass] 34.1 pg High 27-34 [facility] Comment on above: Performed By: #### Tommy ENAMORADO, 40677-9, 60752-1, BMP, 43340-8 #### [facility] ([id number]) [address] [place] [address] 07198 MCHC (RBC) [Mass/Vol] 33.8 g/dL Normal 32-36 [facility] Comment on above: Performed By: #### Tommy ENAMORADO, 61338-3, 66456-9, BMP, 56753-8 #### [facility] ([id number]) [address] [place] [address] 81864 MCV (RBC) [Entitic vol] 101 fL High 80-100 [facility] Comment on above: Performed By: #### Tommy ENAMORADO, 97631-0, 32070-6, BMP, 19080-0 #### [facility] ([id number]) [address] [place] [address] 67230 Monocytes (Bld) [#/Vol] 0.3 10*3/uL Normal 0-0.9 [facility] Comment on above: Performed By: #### Tommy ENAMORADO, 08296-8, 61362-2, BMP, 00263-6 #### [facility] ([id number]) [address] [place] [address] 32075 Monocytes/100 WBC (Bld) 10.4 % Normal [facility] Comment on above: Performed By: #### Tommy ENAMORADO, 50685-8, 95757-9, BMP, 94389-9 #### [facility] ([id number]) [address] [place] [address] 59262 Neutrophils/100 WBC (Bld) 56.3 % Normal [facility] Comment on above: Performed By: #### Tommy ENAMORADO, 64644-4, 46117-5, BMP, 70827-1 #### [facility] ([id number]) [address] [place] [address] 11593 Platelet mean volume (Bld) [Entitic vol] 9.8 fL Normal 7-12 [facility] Comment on above: Performed By: #### Tommy ENAMORADO, 90423-4, 86810-9, BMP, 18248-7 #### [facility] ([id number]) [address] [place] [address] 99034 Platelets (Bld) [#/Vol] 111 10*3/uL Low 150-450 [facility] Comment on above: Performed By: #### Tommy ENAMORADO, 43792-6, 14384-3, BMP, 64922-6 #### [facility] ([id number]) [address] [place] [address] 29936 RBC COUNT 2.20 X10E12/L Low 4.10-5.70 [facility] Comment on above: Performed By: #### Tommy ENAMORADO, 69088-6, 47971-0, BMP, 04329-7 #### [facility] ([id number]) [address] [place] [address] 06788 WBC (Bld) [#/Vol] 3.1 10*3/uL Low 4.0-11.0 [facility] Comment on above: Performed By: #### Tommy ENAMORADO, 70418-3, 64122-8, BMP, 31944-0 #### [facility] ([id number]) [address] [place] [address] 93096 COMPREHENSIVE METABOLIC PANE Azael 07-26-2023 Albumin [Mass/Vol] 2.7 g/dL Low 3.2-5.3 [facility] Comment on above: Performed By: #### C BCA, 46163-3, 89253-3, BMP, 46669-4 #### [facility] ([id number]) [address] [place] [address] 79086 ALP [Catalytic activity/Vol] 104 U/L Normal 39-130 [facility] Comment on above: Performed By: #### C BCA, 34258-1, 53063-6, BMP, 00721-9 #### [facility] ([id number]) [address] [place] [address] 68645 ALT [Catalytic activity/Vol] 25 U/L Normal 0-40 [facility] Comment on above: Performed By: #### Tommy ENAMORADO, 77607-6, 39723-1, BMP, 30034-1 #### [facility] ([id number]) [address] [place] [address] 63101 Anion gap [Moles/Vol] 6 mmol/L Normal 5-15 [facility] Comment on above: Performed By: #### Tommy BCA, 18309-2, 13019-0, BMP, 82483-8 #### [facility] ([id number]) [address] [place] [address] 29725 AST [Catalytic activity/Vol] 38 U/L Normal 0-41 [facility] Comment on above: Performed By: #### C BCA, 74887-2, 48632-5, BMP, 09263-8 #### [facility] ([id number]) [address] [place] [address] 43851 Bilirubin [Mass/Vol] 0.7 mg/dL Normal 0.3-1.2 [facility] Comment on above: Performed By: #### Tommy BCA, 01108-3, 88321-2, BMP, 41208-6 #### [facility] ([id number]) [address] [place] [address] 85502 Calcium [Mass/Vol] 8.4 mg/dL Low 8.5-10.5 [facility] Comment on above: Performed By: #### C BCA, 60423-3, 23519-6, BMP, 05699-4 #### [facility] ([id number]) [address] [place] [address] 54271 Chloride [Moles/Vol] 102 mmol/L Normal 98-109 [facility] Comment on above: Performed By: #### C BCA, 52682-3, 61812-2, BMP, 13918-7 #### [facility] ([id number]) [address] [place] [address] 80169 CO2 [Moles/Vol] 26 mmol/L Normal 22-32 [facility] Comment on above: Performed By: #### C BCA, 44529-7, 41960-3, BMP, 28440-3 #### [facility] ([id number]) [address] [place] [address] 95951 Creatinine [Mass/Vol] 0.99 mg/dL Normal 0.70-1.20 [facility] Comment on above: Result Comment: METH OD TRACEABLE TO IDMS STANDARD Performed By: #### C BCA, 07356-9, 76422-5, BMP, 48562-9 #### [facility] ([id number]) [address] [place] [address] 33928 GFR/1.73 sq M.predicted among non-blacks MDRD (S/P/Bld) [Vol rate/Area] 79 mL/min/{1.73_m2} Normal >59 [facility] Comment on above: Result Comment: Reported eGFR is based on the CKD-EPI 2020 equation that does not use a race coefficient. Performed By: #### C BCA, 71239-8, 46296-6, BMP, 60432-5 #### [facility] ([id number]) [address] [place] [address] 19397 Glucose [Mass/Vol] 98 mg/dL Normal 65-99 [facility] Comment on above: Performed By: #### C BCA, 85582-1, 46785-3, BMP, 37076-5 #### [facility] ([id number]) [address] [place] [address] 39734 Potassium [Moles/Vol] 4.0 mmol/L Normal 3.5-5.0 [facility] Comment on above: Performed By: #### C BCA, 72458-8, 07208-5, BMP, 14246-6 #### [facility] ([id number]) [address] [place] [address] 79429 Protein [Mass/Vol] 6.3 g/dL Normal 6.0-8.0 [facility] Comment on above: Performed By: #### C BCA, 56254-1, 22755-4, BMP, 22176-9 #### [facility] ([id number]) [address] [place] [address] 50680 Sodium [Moles/Vol] 134 mmol/L Normal 134-146 [facility] Comment on above: Performed By: #### C BCA, 78162-8, 54654-8, BMP, 56296-3 #### [facility] ([id number]) [address] [place] [address] 02688 Urea nitrogen [Mass/Vol] 24 mg/dL Normal 5-27 [facility] Comment on above: Performed By: #### C BCA, 77190-4, 28259-3, BMP, 02531-5 #### [facility] ([id number]) [address] [place] [address] 75982 Glucose Glucometer (BldC) [M ass/Vol]on 06-04-2024 Glucose [Mass/Vol] 153 mg/dL High 65-99 [facility] Glucose [Mass/Vol] 113 mg/dL High 65-99 [facility] Glucose [Mass/Vol] 111 mg/dL High 65-99 [facility] MAGNESIUMon 07-26-2023 Magnesium [Mass/Vol] 2.0 mg/dL Normal 1.8-2.6 [facility] Comment on above: Performed By: #### C KELSEA, 13853-8, 47908-9, BMP, 91316-5 #### [facility] ([id number]) [address] [place] [address] 11947 CBC AND AUTO DIFFon 07-25-19 24 ABSOLUTE BASOPHIL 0.0 X10E9/L Normal 0.0-0.2 [facility] Comment on above: Performed By: #### Tommy ENAMORADO, 11364-1, 51316-4, BMP, 66196-5 #### [facility] ([id number]) [address] [place] [address] 48832 ABSOLUTE NEUTROPHIL 1.9 X10E9/L Normal 1.5-6.6 [facility] Comment on above: Performed By: #### Tommy ENAMORADO, 42421-4, 52666-2, BMP, 06294-5 #### [facility] ([id number]) [address] [place] [address] 05994 Basophils/100 WBC (Bld) 0.8 % Normal [facility] Comment on above: Performed By: #### C KELSEA, 87435-1, 17506-9, BMP, 04190-1 #### [facility] ([id number]) [address] [place] [address] 40715 Eosinophils (Bld) [#/Vol] 0.2 10*3/uL Normal 0.0-0.4 [facility] Comment on above: Performed By: #### Tommy ENAMORADO, 86891-0, 47569-0, BMP, 47439-1 #### [facility] ([id number]) [address] [place] [address] 87094 Eosinophils/100 WBC (Bld) 5.6 % Normal [facility] Comment on above: Performed By: #### Tommy ENAMORADO, 60669-3, 05644-8, BMP, 47070-8 #### [facility] ([id number]) [address] [place] [address] 91215 Erythrocyte distribution width (RBC) [Ratio] 15.7 % High 11.5-15.0 [facility] Comment on above: Performed By: #### Tommy ENAMORADO, 53526-0, 29558-0, BMP, 97512-3 #### [facility] ([id number]) [address] [place] [address] 30700 Hematocrit (Bld) [Volume fraction] 24.8 % Low 39-49 [facility] Comment on above: Performed By: #### Tommy ENAMORADO, 37329-4, 45611-8, BMP, 02908-5 #### [facility] ([id number]) [address] [place] [address] 98440 Hemoglobin (Bld) [Mass/Vol] 8.3 g/dL Low 13.0-17.0 [facility] Comment on above: Performed By: #### Tommy ENAMORADO, 52512-9, 03691-2, BMP, 47766-1 #### [facility] ([id number]) [address] [place] [address] 46241 Lymphocytes (Bld) [#/Vol] 0.8 10*3/uL Low 1.0-3.5 [facility] Comment on above: Performed By: #### Tommy ENAMORADO, 37154-6, 56780-2, BMP, 56233-9 #### [facility] ([id number]) [address] [place] [address] 60106 Lymphocytes/100 WBC (Bld) 25.0 % Normal [facility] Comment on above: Performed By: #### Tommy ENAMORADO, 13852-9, 29437-5, BMP, 99744-4 #### [facility] ([id number]) [address] [place] [address] 59880 MCH (RBC) [Entitic mass] 34.1 pg High 27-34 [facility] Comment on above: Performed By: #### Tommy ENAMORADO, 24173-1, 27601-4, BMP, 67217-3 #### [facility] ([id number]) [address] [place] [address] 68097 MCHC (RBC) [Mass/Vol] 33.4 g/dL Normal 32-36 [facility] Comment on above: Performed By: #### Tommy ENAMORADO, 72815-9, 11130-1, BMP, 72172-8 #### [facility] ([id number]) [address] [place] [address] 88599 MCV (RBC) [Entitic vol] 102 fL High 80-100 [facility] Comment on above: Performed By: #### Tommy ENAMORADO, 88344-7, 52595-5, BMP, 85010-4 #### [facility] ([id number]) [address] [place] [address] 60477 Monocytes (Bld) [#/Vol] 0.4 10*3/uL Normal 0-0.9 [facility] Comment on above: Performed By: #### Tommy ENAMORADO, 02458-5, 70938-0, BMP, 69352-9 #### [facility] ([id number]) [address] [place] [address] 77215 Monocytes/100 WBC (Bld) 11.1 % Normal [facility] Comment on above: Performed By: #### Tommy ENAMORADO, 33109-8, 16455-5, BMP, 66831-7 #### [facility] ([id number]) [address] [place] [address] 36453 Neutrophils/100 WBC (Bld) 57.5 % Normal [facility] Comment on above: Performed By: #### Tommy ENAMORADO, 70581-7, 63215-2, BMP, 06545-6 #### [facility] ([id number]) [address] [place] [address] 96272 Platelet mean volume (Bld) [Entitic vol] 9.8 fL Normal 7-12 [facility] Comment on above: Performed By: #### Tommy ENAMORADO, 35987-9, 47313-6, BMP, 62004-4 #### [facility] ([id number]) [address] [place] [address] 01311 Platelets (Bld) [#/Vol] 108 10*3/uL Low 150-450 [facility] Comment on above: Performed By: #### Tommy ENAMORADO, 66214-3, 41234-8, BMP, 09827-9 #### [facility] ([id number]) [address] [place] [address] 79090 RBC COUNT 2.44 X10E12/L Low 4.10-5.70 [facility] Comment on above: Performed By: #### Tommy ENAMORADO, 97324-2, 87218-3, BMP, 46436-7 #### [facility] ([id number]) [address] [place] [address] 88956 WBC (Bld) [#/Vol] 3.3 10*3/uL Low 4.0-11.0 [facility] Comment on above: Performed By: #### Tommy ENAMORADO, 37015-4, 85136-0, BMP, 89643-5 #### [facility] ([id number]) [address] [place] [address] 48445 COMPREHENSIVE METABOLIC PANE Azael 07-25-2023 Albumin [Mass/Vol] 2.8 g/dL Low 3.2-5.3 [facility] Comment on above: Performed By: #### C BCA, 78791-6, 28006-3, BMP, 72475-5 #### [facility] ([id number]) [address] [place] [address] 99970 ALP [Catalytic activity/Vol] 109 U/L Normal 39-130 [facility] Comment on above: Performed By: #### C BCA, 91166-6, 98573-6, BMP, 25574-2 #### [facility] ([id number]) [address] [place] [address] 32702 ALT [Catalytic activity/Vol] 27 U/L Normal 0-40 [facility] Comment on above: Performed By: #### Tommy BCA, 08874-5, 93573-9, BMP, 08361-1 #### [facility] ([id number]) [address] [place] [address] 04337 Anion gap [Moles/Vol] 7 mmol/L Normal 5-15 [facility] Comment on above: Performed By: #### Tommy BCA, 68572-6, 29647-8, BMP, 88081-4 #### [facility] ([id number]) [address] [place] [address] 37264 AST [Catalytic activity/Vol] 47 U/L High 0-41 [facility] Comment on above: Performed By: #### C BCA, 47339-3, 96901-8, BMP, 72665-2 #### [facility] ([id number]) [address] [place] [address] 06081 Bilirubin [Mass/Vol] 0.6 mg/dL Normal 0.3-1.2 [facility] Comment on above: Performed By: #### C BCA, 71365-5, 90755-0, BMP, 18938-9 #### [facility] ([id number]) [address] [place] [address] 28450 Calcium [Mass/Vol] 8.9 mg/dL Normal 8.5-10.5 [facility] Comment on above: Performed By: #### C BCA, 30927-3, 44172-5, BMP, 85667-6 #### [facility] ([id number]) [address] [place] [address] 65516 Chloride [Moles/Vol] 99 mmol/L Normal 98-109 [facility] Comment on above: Performed By: #### C BCA, 79572-5, 25298-0, BMP, 89325-0 #### [facility] ([id number]) [address] [place] [address] 48755 CO2 [Moles/Vol] 28 mmol/L Normal 22-32 [facility] Comment on above: Performed By: #### C BCA, 02522-8, 73073-9, BMP, 19936-2 #### [facility] ([id number]) [address] [place] [address] 18557 Creatinine [Mass/Vol] 1.45 mg/dL High 0.70-1.20 [facility] Comment on above: Result Comment: METH OD TRACEABLE TO IDMS STANDARD Performed By: #### C BCA, 93793-0, 11985-8, BMP, 89927-4 #### [facility] ([id number]) [address] [place] [address] 97055 GFR/1.73 sq M.predicted among non-blacks MDRD (S/P/Bld) [Vol rate/Area] 50 mL/min/{1.73_m2} Low >59 [facility] Comment on above: Result Comment: Reported eGFR is based on the CKD-EPI 2020 equation that does not use a race coefficient. Performed By: #### C BCA, 50075-4, 67455-4, BMP, 53649-8 #### [facility] ([id number]) [address] [place] [address] 08687 Glucose [Mass/Vol] 117 mg/dL High 65-99 [facility] Comment on above: Performed By: #### Tommy ENAMORADO, 55508-6, 96503-0, BMP, 78246-9 #### [facility] ([id number]) [address] [place] [address] 75344 Potassium [Moles/Vol] 3.7 mmol/L Normal 3.5-5.0 [facility] Comment on above: Performed By: #### Tommy ENAMORADO, 51511-3, 21594-2, BMP, 24762-8 #### [facility] ([id number]) [address] [place] [address] 09408 Protein [Mass/Vol] 6.8 g/dL Normal 6.0-8.0 [facility] Comment on above: Performed By: #### Tommy ENAMORADO, 89707-8, 33490-2, BMP, 71773-5 #### [facility] ([id number]) [address] [place] [address] 46985 Sodium [Moles/Vol] 134 mmol/L Normal 134-146 [facility] Comment on above: Performed By: #### Tommy ENAMORADO, 12599-7, 89694-6, BMP, 50938-7 #### [facility] ([id number]) [address] [place] [address] 56468 Urea nitrogen [Mass/Vol] 38 mg/dL High 5-27 [facility] Comment on above: Performed By: #### Tommy BCA, 28154-3, 99084-8, BMP, 81446-7 #### [facility] ([id number]) [address] [place] [address] 58799 Glucose Glucometer (BldC) [M ass/Vol]on 07-25-2023 Glucose [Mass/Vol] 135 mg/dL High 65-99 [facility] Glucose [Mass/Vol] 131 mg/dL High 65-99 [facility] Glucose [Mass/Vol] 144 mg/dL High 65-99 [facility] MAGNESIUMon 07-25-2023 Magnesium [Mass/Vol] 2.2 mg/dL Normal 1.8-2.6 [facility] Comment on above: Performed By: #### C KELSEA, 50776-5, 05356-9, BMP, 55461-8 #### [facility] ([id number]) [address] [place] [address] 95534 Magnesium [Mass/Vol] 1.8 mg/dL Normal 1.8-2.6 [facility] Comment on above: Performed By: #### C KELSEA, 35419-3, 82545-5, BMP, 80381-3 #### [facility] ([id number]) [address] [place] [address] 24878 POTASSIUMon 07-25-2023 Potassium [Moles/Vol] 4.5 mmol/L Normal 3.5-5.0 [facility] Comment on above: Performed By: #### Tommy ENAMORADO, 23852-0, 42552-1, BMP, 67674-0 #### [facility] ([id number]) [address] [place] [address] 07355 BLOOD CULTUREon 07-24-2023 Bacteria identified Aer cx Nom (Bld) CULTURE RESULTS NO GROWTH 5 DAYS Normal [facility] Bacteria identified Aer cx Nom (Bld) CULTURE RESULTS NO GROWTH 5 DAYS Normal [facility] CBC AND AUTO DIFFon 07-24-19 24 ABSOLUTE BASOPHIL 0.1 X10E9/L Normal 0.0-0.2 [facility] Comment on above: Performed By: #### Tommy ENAMORAOD, 83533-0, 22060-8, BMP, 09277-5 #### [facility] ([id number]) [address] [place] [address] 61333 ABSOLUTE NEUTROPHIL 3.0 X10E9/L Normal 1.5-6.6 [facility] Comment on above: Performed By: #### C KELSEA, 88885-2, 25152-3, BMP, 40134-4 #### [facility] ([id number]) [address] [place] [address] 20144 Basophils/100 WBC (Bld) 1.7 % Normal [facility] Comment on above: Performed By: #### Tommy ENAMORADO, 15692-6, 18126-5, BMP, 03352-2 #### [facility] ([id number]) [address] [place] [address] 16019 Eosinophils (Bld) [#/Vol] 0.0 10*3/uL Normal 0.0-0.4 [facility] Comment on above: Performed By: #### Tommy ENAMORADO, 61943-8, 28197-7, BMP, 27658-7 #### [facility] ([id number]) [address] [place] [address] 01292 Eosinophils/100 WBC (Bld) 1.2 % Normal [facility] Comment on above: Performed By: #### Tommy ENAMORADO, 89677-7, 27489-0, BMP, 31220-2 #### [facility] ([id number]) [address] [place] [address] 36342 Erythrocyte distribution width (RBC) [Ratio] 15.8 % High 11.5-15.0 [facility] Comment on above: Performed By: #### Tommy ENAMORADO, 54552-0, 73208-7, BMP, 32367-6 #### [facility] ([id number]) [address] [place] [address] 49427 Hematocrit (Bld) [Volume fraction] 26.5 % Low 39-49 [facility] Comment on above: Performed By: #### Tommy ENAMORADO, 84311-5, 55168-7, BMP, 78560-0 #### [facility] ([id number]) [address] [place] [address] 77571 Hemoglobin (Bld) [Mass/Vol] 8.9 g/dL Low 13.0-17.0 [facility] Comment on above: Performed By: #### Tommy ENAMORADO, 86365-7, 70240-9, BMP, 10641-2 #### [facility] ([id number]) [address] [place] [address] 31330 Lymphocytes (Bld) [#/Vol] 0.6 10*3/uL Low 1.0-3.5 [facility] Comment on above: Performed By: #### Tommy ENAMORADO, 81414-2, 57543-1, BMP, 45465-7 #### [facility] ([id number]) [address] [place] [address] 80361 Lymphocytes/100 WBC (Bld) 14.8 % Normal [facility] Comment on above: Performed By: #### Tommy ENAMORADO, 50961-7, 09705-5, BMP, 26546-1 #### [facility] ([id number]) [address] [place] [address] 73759 MCH (RBC) [Entitic mass] 34.2 pg High 27-34 [facility] Comment on above: Performed By: #### Tommy ENAMORADO, 75193-8, 02091-6, BMP, 34725-6 #### [facility] ([id number]) [address] [place] [address] 45540 MCHC (RBC) [Mass/Vol] 33.6 g/dL Normal 32-36 [facility] Comment on above: Performed By: #### Tommy ENAMORADO, 16093-4, 71218-7, BMP, 30124-3 #### [facility] ([id number]) [address] [place] [address] 12706 MCV (RBC) [Entitic vol] 102 fL High 80-100 [facility] Comment on above: Performed By: #### Tommy ENAMORADO, 24169-3, 30040-8, BMP, 82156-4 #### [facility] ([id number]) [address] [place] [address] 97043 Monocytes (Bld) [#/Vol] 0.3 10*3/uL Normal 0-0.9 [facility] Comment on above: Performed By: #### Tommy ENAMORADO, 94755-9, 45995-9, BMP, 94522-7 #### [facility] ([id number]) [address] [place] [address] 48094 Monocytes/100 WBC (Bld) 8.2 % Normal [facility] Comment on above: Performed By: #### Tommy ENAMORADO, 34010-8, 65572-5, BMP, 50659-5 #### [facility] ([id number]) [address] [place] [address] 22439 Neutrophils/100 WBC (Bld) 74.1 % Normal [facility] Comment on above: Performed By: #### Tommy ENAMORADO, 22447-2, 45934-8, BMP, 47168-9 #### [facility] ([id number]) [address] [place] [address] [place] [address] Platelet mean volume (Bld) [Entitic vol] 9.4 fL Normal 7-12 [facility] Comment on above: Performed By: #### Tommy ENAMORADO, 51087-1, 99412-2, BMP, 50115-4 #### [facility] ([id number]) [address] [place] [address] 99830 Platelets (Bld) [#/Vol] 105 10*3/uL Low 150-450 [facility] Comment on above: Performed By: #### C BCA, 79557-7, 42628-8, BMP, 74888-9 #### [facility] ([id number]) [address] [place] [address] 51347 RBC COUNT 2.60 X10E12/L Low 4.10-5.70 [facility] Comment on above: Performed By: #### C BCA, 34436-2, 33335-1, BMP, 95068-8 #### [facility] ([id number]) [address] [place] [address] 16823 WBC (Bld) [#/Vol] 4.1 10*3/uL Normal 4.0-11.0 [facility] Comment on above: Performed By: #### Tommy BCA, 68459-7, 54007-1, BMP, 13979-0 #### [facility] ([id number]) [address] [place] [address] 81230 COMPREHENSIVE METABOLIC PANE Azael 07-24-2023 Albumin [Mass/Vol] 3.0 g/dL Low 3.2-5.3 [facility] Comment on above: Performed By: #### C BCA, 97995-2, 16245-7, BMP, 01147-6 #### [facility] ([id number]) [address] [place] [address] 69766 ALP [Catalytic activity/Vol] 96 U/L Normal 39-130 [facility] Comment on above: Performed By: #### C BCA, 58961-4, 57278-3, BMP, 98510-3 #### [facility] ([id number]) [address] [place] [address] 47417 ALT [Catalytic activity/Vol] 23 U/L Normal 0-40 [facility] Comment on above: Performed By: #### C BCA, 35773-9, 10053-7, BMP, 63655-0 #### [facility] ([id number]) [address] [place] [address] 83008 Anion gap [Moles/Vol] 9 mmol/L Normal 5-15 [facility] Comment on above: Performed By: #### C BCA, 08240-1, 54957-0, BMP, 31173-9 #### [facility] ([id number]) [address] [place] [address] 32735 AST [Catalytic activity/Vol] 39 U/L Normal 0-41 [facility] Comment on above: Performed By: #### C BCA, 04236-4, 98298-2, BMP, 20159-9 #### [facility] ([id number]) [address] [place] [address] 46988 Bilirubin [Mass/Vol] 0.9 mg/dL Normal 0.3-1.2 [facility] Comment on above: Performed By: #### C BCA, 89288-6, 84605-5, BMP, 57155-4 #### [facility] ([id number]) [address] [place] [address] 99649 Calcium [Mass/Vol] 8.8 mg/dL Normal 8.5-10.5 [facility] Comment on above: Performed By: #### C BCA, 98234-8, 02701-5, BMP, 24478-0 #### [facility] ([id number]) [address] [place] [address] 73986 Chloride [Moles/Vol] 96 mmol/L Low 98-109 [facility] Comment on above: Performed By: #### C BCA, 62591-3, 04086-9, BMP, 26847-8 #### [facility] ([id number]) [address] [place] [address] 90215 CO2 [Moles/Vol] 27 mmol/L Normal 22-32 [facility] Comment on above: Performed By: #### C BCA, 54164-4, 93918-3, BMP, 93630-5 #### [facility] ([id number]) [address] [place] [address] 60669 Creatinine [Mass/Vol] 1.36 mg/dL High 0.70-1.20 [facility] Comment on above: Result Comment: METH OD TRACEABLE TO IDMS STANDARD Performed By: #### C BCA, 75719-7, 30099-0, BMP, 20724-9 #### [facility] ([id number]) [address] [place] [address] 83802 GFR/1.73 sq M.predicted among non-blacks MDRD (S/P/Bld) [Vol rate/Area] 54 mL/min/{1.73_m2} Low >59 [facility] Comment on above: Result Comment: Reported eGFR is based on the CKD-EPI 2020 equation that does not use a race coefficient. Performed By: #### C BCA, 84115-8, 55531-1, BMP, 67457-6 #### [facility] ([id number]) [address] [place] [address] 93449 Glucose [Mass/Vol] 118 mg/dL High 65-99 [facility] Comment on above: Performed By: #### C BCA, 64003-6, 93600-6, BMP, 74049-2 #### [facility] ([id number]) [address] [place] [address] 16069 Potassium [Moles/Vol] 3.9 mmol/L Normal 3.5-5.0 [facility] Comment on above: Performed By: #### C BCA, 37535-5, 99166-3, BMP, 51368-1 #### [facility] ([id number]) [address] [place] [address] 19449 Protein [Mass/Vol] 7.0 g/dL Normal 6.0-8.0 [facility] Comment on above: Performed By: #### C KELSEA, 75054-5, 73601-0, BMP, 53499-7 #### [facility] ([id number]) 07 [place] [address] 32894 Sodium [Moles/Vol] 132 mmol/L Low 134-146 [facility] Comment on above: Performed By: #### C KELSEA, 70746-2, 16563-5, BMP, 67865-4 #### [facility] ([id number]) [address] [place] [address] 96449 Urea nitrogen [Mass/Vol] 29 mg/dL High 5-27 [facility] Comment on above: Performed By: #### C KELSEA, 49837-0, 40477-3, BMP, 58682-1 #### [facility] ([id number]) [address] [place] [address] 68097 Glucose Glucometer (BldC) [M ass/Vol]on 07-24-2023 Glucose [Mass/Vol] 171 mg/dL High 65-99 [facility] Glucose [Mass/Vol] 153 mg/dL High 65-99 [facility] Glucose [Mass/Vol] 104 mg/dL High 65-99 [facility] Lactate (P mayra) [Moles/Vol]o n 07-24-2023 LACTATE W/REFLEX 1.1 mmol/L Normal 0.4-2.0 [facility] Comment on above: Result Comment: Result did not trigger repeat Lactate, re-order if needed. Performed By: #### C KELSEA, 15605-4, 84206-5, BMP, 80538-2 #### [facility] ([id number]) [address] [place] [address] 16111 MAGNESIUMon 07-24-2023 Magnesium [Mass/Vol] 1.6 mg/dL Low 1.8-2.6 [facility] Comment on above: Performed By: #### C KELSEA, 75235-3, 49501-4, BMP, 17625-7 #### [facility] ([id number]) [address] [place] [address] 10688 MRSA PCR NASALon 07-24-2023 MRSA DNA ARSENIO+probe Ql (Unsp spec) Positive Abnormal NEG [facility] Comment on above: Performed By: #### Tommy ENAMORADO, 95000-2, 00104-7, BMP, 13390-2 #### [facility] ([id number]) [address] [place] [address] 75030 Natriuretic peptide B [Mass/ Vol]on 07-24-2023 Natriuretic peptide B (Bld) [Mass/Vol] 159 pg/mL High <100.0 [facility] Comment on above: Performed By: #### Tommy ENAMORADO, 16830-3, 20583-0, BMP, 33931-9 #### [facility] ([id number]) [address] [place] [address] 71770 Procalcitonin IA [Mass/Vol]o n 07-24-2023 PROCALCITONIN 0.40 ng/mL High <0.05 [facility] Comment on above: Result Comment: NOTE <0.50 ng/mL - Low risk of severe sepsis and/or septic shock. <2.00 ng/mL - Recommend retesting within 6-24 hours. >2.00 ng/mL - High risk of sepsis and/or septic shock. Performed By: #### C KELSEA, 73182-8, 17980-6, BMP, 56093-9 #### [facility] ([id number]) [address] [place] [address] 11300 URINALYSISon 07-24-2023 Bilirubin Ql (U) Negative Normal NEG [facility] Comment on above: Performed By: #### Tommy ENAMORADO, 70525-1, 54797-8, BMP, 40096-3 #### [facility] ([id number]) [address] [place] [address] [place] [address] BLOOD/HGB Trace Abnormal NEG [facility] Comment on above: Performed By: #### C KELSEA, 79501-3, 94732-8, BMP, 80064-3 #### [facility] ([id number]) [address] [place] [address] 76693 Color (U) YELLOW Normal YELLOW [facility] Comment on above: Performed By: #### C BCA, 28674-8, 03269-2, BMP, 24838-4 #### [facility] ([id number]) [address] [place] [address] 96238 Glucose Ql (U) Negative Normal NEG [facility] Comment on above: Performed By: #### Tommy ENAMORADO, 38690-4, 00918-9, BMP, 63314-8 #### [facility] ([id number]) [address] [place] [address] [place] [address] Hyaline casts LM Ql (Urine sed) 5 to 10 Normal 0-2 [facility] Comment on above: Performed By: #### Tommy ENAMORADO, 25680-5, 34218-7, BMP, 72158-5 #### [facility] ([id number]) [address] [place] [address] 02384 Ketones Ql (U) Trace Abnormal NEG [facility] Comment on above: Performed By: #### C BCA, 15256-5, 56347-4, BMP, 06273-1 #### [facility] ([id number]) [address] [place] [address] 99311 Leukocyte esterase Test strip Ql (U) SMALL Abnormal NEG [facility] Comment on above: Performed By: #### Tommy BCA, 44361-8, 26093-0, BMP, 89279-3 #### [facility] ([id number]) [address] [place] [address] 93338 MUCOUS PRESENT Abnormal NONE [facility] Comment on above: Performed By: #### Tommy ENAMORADO, 98205-3, 81115-5, BMP, 13755-8 #### [facility] ([id number]) [address] [place] [address] 08204 Nitrite Ql (U) Negative Normal NEG [facility] Comment on above: Performed By: #### Tommy ENAMORADO, 33664-7, 65939-4, BMP, 25852-6 #### [facility] ([id number]) [address] [place] [address] 61289 pH (U) 6.0 [pH] Normal 5.0-8.5 [facility] Comment on above: Performed By: #### Tommy ENAMORADO, 46330-1, 88612-7, BMP, 18561-2 #### [facility] ([id number]) [address] [place] [address] 11711 Protein Ql (U) 30 mg/dL Abnormal NEG [facility] Comment on above: Performed By: #### Tommy ENAMORADO, 77823-1, 33209-9, BMP, 80586-8 #### [facility] ([id number]) [address] [place] [address] 50502 R.B.CELLS 2 to 5 Normal 0-5 [facility] Comment on above: Performed By: #### Tommy ENAMORADO, 08617-3, 28195-5, BMP, 85129-6 #### [facility] ([id number]) [address] [place] [address] 57894 Specific gravity (U) [Rel density] 1.025 Normal 1.003-1.035 [facility] Comment on above: Performed By: #### Tommy ENAMORADO, 91307-1, 68605-9, BMP, 10718-9 #### [facility] ([id number]) [address] [place] [address] 91646 SQUAMOUS EPITHELIUM 2 to 5 Normal 0-5 [facility] Comment on above: Performed By: #### Tommy ENAMORADO, 96949-5, 52467-6, BMP, 46279-2 #### [facility] ([id number]) [address] [place] [address] 05993 TURBIDITY CLEAR Normal CLEAR [facility] Comment on above: Performed By: #### Tommy ENAMORADO, 20416-8, 64949-4, BMP, 45810-9 #### [facility] ([id number]) [address] [place] [address] 68630 Urobilinogen Qn (U) 0.2 {Joan'U}/dL Normal <1.1 [facility] Comment on above: Performed By: #### Tommy ENAMORADO, 54392-0, 09070-0, BMP, 33959-7 #### [facility] ([id number]) [address] [place] [address] 42207 W.B.CELLS 20 to 50 Normal 0-5 [facility] Comment on above: Performed By: #### Tommy ENAMORADO, 50190-6, 08401-6, BMP, 86760-1 #### [facility] ([id number]) [address] [place] [address] 67133 URINE CULTUREon 07-24-2023 Bacteria identified Cx Nom (U) CULTURE RESULTS NO GROWTH AT <1000 CFU/mL Normal [facility] Comment on above: Performed By: #### Tommy ENAMORADO, 36188-3, 84090-9, BMP, 71250-0 #### [facility] ([id number]) [address] [place] [address] 25533 XR CHEST 1 VWon 07-24-2023 XR CHEST 1 VW XR CHEST 1 VW Clinical history: Left lower lobe pneumonia Views: 1 Comparison: 07/23/2023 Findings/Impression: 1. Left pleural effusion with atelectasis. Remaining lungs clear. Heart size prominent. Vasculature improved from the previous exam. No pneumothorax. 2. Overall, gradually improved compared to 07/23/2023 Finalized by Ricardo Serra MD on 07/24/2023 6:45 AM Normal [facility] BASIC METABOLIC PANLon 07-22 Anion gap [Moles/Vol] 3 mmol/L Low 5-15 [facility] Comment on above: Performed By: #### C BCA, 79641-8, 05697-6, BMP, 51536-8 #### [facility] ([id number]) [address] [place] [address] 33641 Calcium [Mass/Vol] 9.2 mg/dL Normal 8.5-10.5 [facility] Comment on above: Performed By: #### C BCA, 63703-2, 31136-5, BMP, 35791-3 #### [facility] ([id number]) [address] [place] [address] 71674 Chloride [Moles/Vol] 98 mmol/L Normal 98-109 [facility] Comment on above: Performed By: #### C BCA, 49574-7, 05410-5, BMP, 81007-1 #### [facility] ([id number]) [address] [place] [address] 79028 CO2 [Moles/Vol] 29 mmol/L Normal 22-32 [facility] Comment on above: Performed By: #### C BCA, 57677-9, 63854-3, BMP, 61947-2 #### [facility] ([id number]) [address] [place] [address] 87871 Creatinine [Mass/Vol] 1.17 mg/dL Normal 0.70-1.20 [facility] Comment on above: Result Comment: METH OD TRACEABLE TO IDMS STANDARD Performed By: #### C BCA, 38398-1, 98449-1, BMP, 69877-3 #### [facility] ([id number]) [address] [place] [address] 70479 GFR/1.73 sq M.predicted among non-blacks MDRD (S/P/Bld) [Vol rate/Area] 65 mL/min/{1.73_m2} Normal >59 [facility] Comment on above: Result Comment: Reported eGFR is based on the CKD-EPI 2020 equation that does not use a race coefficient. Performed By: #### C BCA, 52684-7, 63851-9, BMP, 86076-0 #### [facility] ([id number]) [address] [place] [address] 91985 Glucose [Mass/Vol] 116 mg/dL High 65-99 [facility] Comment on above: Performed By: #### C BCA, 20964-0, 62673-5, BMP, 59882-6 #### [facility] ([id number]) [address] [place] [address] 21862 Potassium [Moles/Vol] 4.6 mmol/L Normal 3.5-5.0 [facility] Comment on above: Performed By: #### C BCA, 34453-6, 13770-4, BMP, 31841-8 #### [facility] ([id number]) [address] [place] [address] 05627 Sodium [Moles/Vol] 130 mmol/L Low 134-146 [facility] Comment on above: Performed By: #### C BCA, 56198-5, 74063-1, BMP, 37878-3 #### [facility] ([id number]) [address] [place] [address] 78338 Urea nitrogen [Mass/Vol] 20 mg/dL Normal 5-27 [facility] Comment on above: Performed By: #### C BCA, 99323-3, 26926-3, BMP, 32149-4 #### [facility] ([id number]) [address] [place] [address] 09202 BLOOD CULTUREon 07-23-2023 Bacteria identified Aer cx Nom (Bld) CULTURE RESULTS STAPHYLOCOCCUS AUREUS METHICILLIN RESISTANT FOR SUSCEPTIBILITY, SEE PREVIOUS REPORT. Normal [facility] Comment on above: Performed By: #### C KELSEA, 33957-7, 72284-3, BMP, 91861-3 #### [facility] ([id number]) [address] [place] [address] 22040 Bacteria identified Aer cx Nom (Bld) CULTURE RESULTS STAPHYLOCOCCUS AUREUS METHICILLIN RESISTANT Staphylcoccus aureus detected by PCR. mecA/C and MREJ gene detected by PCR (MRSA). [ S = SUSCEPTIBLE R = RESISTANT I = INTERMEDIATE S-DO = Susceptible-dose dependent NS = Non-suscceptible NO = No Interpretation ] Organism: STAPHYLOCOCCUS AUREUS Antibiotic Interpretation BECKA Status CEFAZOLIN R F CLINDAMYCIN S 0.25 F OXACILLIN R >=4 F TRIMETH/SULFAMETHOXA ZOLE S <=.5/9.5 F VANCOMYCIN S 1 F DOXYCYCLINE S <=0.5 F Susceptible [facility] Comment on above: Performed By: #### C KELSEA, 50488-2, 21411-6, BMP, 88128-6 #### [facility] ([id number]) [address] [place] [address] 05800 CBC AND AUTO DIFFon 07-23-19 24 ABSOLUTE BASOPHIL 0.1 X10E9/L Normal 0.0-0.2 [facility] Comment on above: Performed By: #### C KELSEA, 14219-6, 51055-6, BMP, 59552-5 #### [facility] ([id number]) [address] [place] [address] 42710 ABSOLUTE NEUTROPHIL 4.8 X10E9/L Normal 1.5-6.6 [facility] Comment on above: Performed By: #### Tommy ENAMORADO, 73820-4, 70704-5, BMP, 39074-1 #### [facility] ([id number]) [address] [place] [address] 58907 Basophils/100 WBC (Bld) 1.5 % Normal [facility] Comment on above: Performed By: #### C KELSEA, 49447-4, 85050-4, BMP, 10641-9 #### [facility] ([id number]) [address] [place] [address] 30300 Eosinophils (Bld) [#/Vol] 0.0 10*3/uL Normal 0.0-0.4 [facility] Comment on above: Performed By: #### Tommy ENAMORADO, 08559-5, 86678-4, BMP, 84683-9 #### [facility] ([id number]) [address] [place] [address] 51673 Eosinophils/100 WBC (Bld) 0.7 % Normal [facility] Comment on above: Performed By: #### Tommy ENAMORADO, 02899-6, 31803-3, BMP, 21855-9 #### [facility] ([id number]) [address] [place] [address] 44472 Erythrocyte distribution width (RBC) [Ratio] 15.5 % High 11.5-15.0 [facility] Comment on above: Performed By: #### Tommy ENAMORADO, 79764-3, 02147-7, BMP, 22645-9 #### [facility] ([id number]) [address] [place] [address] 33074 Hematocrit (Bld) [Volume fraction] 29.7 % Low 39-49 [facility] Comment on above: Performed By: #### Tommy ENAMORADO, 21378-8, 00323-0, BMP, 47107-5 #### [facility] ([id number]) [address] [place] [address] 41365 Hemoglobin (Bld) [Mass/Vol] 10.1 g/dL Low 13.0-17.0 [facility] Comment on above: Performed By: #### Tommy ENAMORADO, 10041-1, 11903-2, BMP, 74832-0 #### [facility] ([id number]) [address] [place] [address] 27732 Lymphocytes (Bld) [#/Vol] 0.8 10*3/uL Low 1.0-3.5 [facility] Comment on above: Performed By: #### Tommy ENAMORADO, 81408-9, 89274-2, BMP, 66228-0 #### [facility] ([id number]) [address] [place] [address] 66652 Lymphocytes/100 WBC (Bld) 13.7 % Normal [facility] Comment on above: Performed By: #### Tommy ENAMORADO, 60441-6, 53957-4, BMP, 75499-4 #### [facility] ([id number]) [address] [place] [address] 11106 MCH (RBC) [Entitic mass] 34.3 pg High 27-34 [facility] Comment on above: Performed By: #### Tommy ENAMORADO, 30380-8, 18388-0, BMP, 21102-9 #### [facility] ([id number]) [address] [place] [address] 48638 MCHC (RBC) [Mass/Vol] 34.2 g/dL Normal 32-[address] [facility] Comment on above: Performed By: #### Tommy ENAMORADO, 41293-5, 62248-2, BMP, 01873-8 #### [facility] ([id number]) [address] [place] [address] 31018 MCV (RBC) [Entitic vol] 100 fL Normal 80-100 [facility] Comment on above: Performed By: #### Tommy ENAMORADO, 10506-9, 79703-9, BMP, 40467-2 #### [facility] ([id number]) [address] [place] [address] 97275 Monocytes (Bld) [#/Vol] 0.3 10*3/uL Normal 0-0.9 [facility] Comment on above: Performed By: #### Tommy ENAMORADO, 26252-2, 18663-0, BMP, 39349-9 #### [facility] ([id number]) [address] [place] [address] 33296 Monocytes/100 WBC (Bld) 5.1 % Normal [facility] Comment on above: Performed By: #### Tommy ENAMORADO, 24496-8, 89915-2, BMP, 33093-6 #### [facility] ([id number]) [address] [place] [address] 16349 Neutrophils/100 WBC (Bld) 79.0 % Normal [facility] Comment on above: Performed By: #### Tommy ENAMORADO, 26745-4, 00798-0, BMP, 88508-1 #### [facility] ([id number]) [address] [place] [address] 48641 Platelet mean volume (Bld) [Entitic vol] 8.9 fL Normal 7-12 [facility] Comment on above: Performed By: #### Tommy ENAMORADO, 02072-6, 19391-9, BMP, 99531-6 #### [facility] ([id number]) [address] [place] [address] 87630 Platelets (Bld) [#/Vol] 135 10*3/uL Low 150-450 [facility] Comment on above: Performed By: #### Tommy ENAMORADO, 47575-9, 25147-3, BMP, 20474-6 #### [facility] ([id number]) [address] [place] [address] 40904 RBC COUNT 2.95 X10E12/L Low 4.10-5.70 [facility] Comment on above: Performed By: #### C KELSEA, 89663-6, 94159-8, BMP, 84683-5 #### [facility] ([id number]) [address] [place] [address] 57593 WBC (Bld) [#/Vol] 6.0 10*3/uL Normal 4.0-11.0 [facility] Comment on above: Performed By: #### C KELSEA, 42218-1, 08718-9, [facility], 97994-7 #### [facility] ([id number]) [address] [place] [address] 76319 Glucose Glucometer (BldC) [M ass/Vol]on 07-23-2023 Glucose [Mass/Vol] 123 mg/dL High 65-99 [facility] Glucose [Mass/Vol] 127 mg/dL High 65-99 [facility] Glucose [Mass/Vol] 112 mg/dL High 65-99 [facility] Lactate (P mayra) [Moles/Vol]o n 07-23-2023 LACTATE W/REFLEX 0.7 mmol/L Normal 0.4-2.0 [facility] Comment on above: Result Comment: Result did not trigger repeat Lactate, re-order if needed. Performed By: #### 3 2133-1 #### [facility] ([id number]) [address] [place] [address] 41583 Natriuretic peptide B [Mass/ Vol]on 07-23-2023 Natriuretic peptide B (Bld) [Mass/Vol] 213 pg/mL High <100.0 [facility] Comment on above: Performed By: #### C KELSEA, 34075-2, 57132-1, BMP, 14773-4 #### [facility] ([id number]) [address] [place] [address] 09053 Procalcitonin IA [Mass/Vol]o n 07-23-2023 PROCALCITONIN 0.31 ng/mL High <0.05 [facility] Comment on above: Result Comment: NOTE <0.50 ng/mL - Low risk of severe sepsis and/or septic shock. <2.00 ng/mL - Recommend retesting within 6-24 hours. >2.00 ng/mL - High risk of sepsis and/or septic shock. Performed By: #### C [facility], 05236-7, 76155-0, [facility], 94988-4 #### [facility] ([id number]) [address] [facility] [place] [address] SARS/FLU A+B/RSV by NAAT/Mol ecularon 07-23-2023 SARS/FLU A+B/RSV by NAAT/Molecular FLU A PCR Negative (qualifier value) FLU B PCR Negative (qualifier value) RSV by PCR Negative (qualifier value) SARS CoV 2 Not detected (qualifier value) NOTE The Xpert Xpress SARS-CoV-2/Flu/RSV Plus test is a rapid, multiplexed real-time RT-PCR test intended for the simultaneous qualitative detection and differentiation of SARS-CoV-2, influenza A, influenza B and respiratory syncytial virus (RSV) viral RNA from individuals suspected of respiratory viral infection consistent with COVID-19 by their healthcare provider. This test has not been validated in asymptomatic patients. The Xpert Xpress SARS-CoV-2 test is intended for use by qualified and trained operators who are performing tests using either [employer] DX or [employer] Infinity systems and is limited to laboratories that meet the CLIA requirements to perform high and moderate complexity tests. The Xpert Xpress SARS-CoV-2/Flu/RSV Plus is only for use under the Food and Drug Administration's Emergency Use Authorization. Results are for the simultaneous detection and differentiation of SARS-CoV-2, influenza A, influenza B and RSV nucleic acids in clinical specimens. SARS-CoV-2, influenza A, influenza B and RSV RNA identified by this test are generally detectable in upper respiratory samples during the acute phase of infection. Positive results are indicative of the presence of the identified virus, but do not rule out bacterial infection or co-infection with other pathogens not detected by this test. Clinical correlation with patient history and other diagnostic information is necessary to determine patient infection status. The agent detected may not be the definite cause of disease. Negative results do not preclude SARS-CoV-2, influenza A, influenza B and RSV infection and should not be used as the sole basis for treatment or other patient management decisions. Negative results must be combined with clinical observations, patient history and epidemiological information. An Invalid result may occur with specimen-associated inhibition unable to be resolved with specimen repeat. Fact Sheet for Healthcare Providers: https://www.fda.gov/ media/430209/downloa d Fact Sheet for Patients: https://www.fda.gov/ media/846311/downloa d Normal [facility] Comment on above: Performed By: #### C OVFLR #### [facility] ([id number]) [address] [place] [address] 48378 Troponin I.cardiac High sens itivity method [Mass/Vol]on 07-23-2023 TROPONIN I, HIGH SENSITIVITY 53 ng/L High <21 [facility] Comment on above: Result Comment: Elevations of hs-Troponin may be due to causes other than myocardial ischemia. Recommend serial hs-Troponin testing be performed. For the initial evaluation and management of chest pain patients, refer to the algorithms linked below. Emergency Patient: [email or web address] Inpatient: [email or web address]=[email or web address] Performed By: #### C B[facility], 36295-1, 85329-1, [facility], 27762-0 #### [facility] ([id number]) [address] [place] [address] 20811 1 HOUR TROP I, HIGH SENSITIVITY 51 ng/L High <21 [facility] Comment on above: Result Comment: Elevations of hs-Troponin may be due to causes other than myocardial ischemia. Recommend serial hs-Troponin testing be performed. For the initial evaluation and management of chest pain patients, refer to the algorithms linked below. Emergency Patient: [email or web address] Inpatient: [email or web address]=[email or web address] Performed By: #### 8 9579-7 #### [facility] ([id number]) [address] [facility] [place] [address] XR CHEST 1 VWon 07-23-2023 XR CHEST 1 VW XR CHEST 1 VW XR CHEST 1 VW HISTORY: Chest pain COMPARISON: None FINDINGS: AP upright film obtained. Sternotomy wires chest wall, similar to the left. The cardiomediastinal silhouette is prominent. Prominent pulmonary vasculature. No pneumothorax. Likely left pleural effusion. Left lower lung airspace opacity. IMPRESSION: * Left lower lung airspace opacity, pneumonia versus large effusion with atelectasis. * Cardiomegaly with prominent pulmonary vasculature. Approved by Resident: Bob Tolliver DO on 07/23/2023 2:26 AM I, Johnathan Paige MD have personally reviewed the image(s) and agree with and/or edited the report Finalized by Johnathan Paige MD on 07/23/2023 2:42 AM Normal [facility] Alanine aminotransferase [En zymatic activity/volume] in Serum or PlasmaOrdered By: Husam Taylor on 07-21-2023 ALT [Catalytic activity/Vol] 10 U/L Normal 7-52 [facility] Comment on above: Performed By: #### C MP, CBC #### [facility] [address] [id number] [facility] Albumin [Mass/volume] in Ser um or Plasma by Bromocresol green (BCG) dye binding methoOrdered By: Husam Taylor on 07-21-2023 Albumin BCG dye [Mass/Vol] 3.4 g/dL 3.5-5.7 [facility] Alkaline phosphatase [Enzyma tic activity/volume] in Serum or PlasmaOrdered By: Husam Taylor on 07-21-2023 ALP [Catalytic activity/Vol] 76 U/L Normal 34-104 [facility] Comment on above: Performed By: #### C MP, CBC #### [address] Aspartate aminotransferase [ Enzymatic activity/volume] in Serum or PlasmaOrdered By: Husam Taylor on 07-21-2023 AST [Catalytic activity/Vol] 17 U/L Normal 13-39 [facility] Comment on above: Performed By: #### C MP, CBC #### [address] Automated basophil %Ordered By: Husam Taylor on 07-21-2023 Basophils/100 WBC (Bld) 1.0 % Normal . F [facility] Comment on above: Performed By: #### C MP, CBC #### [address] Automated basophil countOrde red By: Husam Taylor on 07-21-2023 Basophils (Bld) [#/Vol] 0.1 10*3/uL Normal 0.0-0.2 [facility] Comment on above: Result Comment: PERF ORMED BY: [place] [address] PATHOLOGIST [employer] EDIL LEMUS M.D. Performed By: #### C MP, CBC #### [address] Automated blood monocyte cou ntOrdered By: Husam Taylor on 07-21-2023 Monocytes (Bld) [#/Vol] 0.5 10*3/uL Normal 0.0-0.8 [facility] Comment on above: Performed By: #### C MP, CBC #### [address] Automated eosinophil %Ordere d By: Husam Taylor on 07-21-2023 Eosinophils/100 WBC (Bld) 3.7 % Normal . [facility] Comment on above: Performed By: #### C MP, CBC #### [address] Automated eosinophil countOr dered By: Husam Taylor on 07-21-2023 Eosinophils (Bld) [#/Vol] 0.2 10*3/uL Normal 0.0-0.45 [facility] Comment on above: Performed By: #### C MP, CBC #### [address] Automated monocyte %Ordered By: Husam Taylor on 07-21-2023 Monocytes/100 WBC (Bld) 9.4 % Normal . [facility] Comment on above: Performed By: #### C MP, CBC #### [address] Automated neutrophil %Ordere d By: Husam Ericksonmer on 07-21-2023 Neutrophils/100 WBC (Bld) 72.9 % Normal . [facility] Comment on above: Performed By: #### C MP, CBC #### [address] Bilirubin.total [Mass/volume ] in Serum or PlasmaOrdered By: Husam Ericksonmer on 07-21-2023 Bilirubin [Mass/Vol] 0.5 mg/dL Normal 0.3-1.0 [facility] Comment on above: Performed By: #### C MP, CBC #### [address] Calcium [Mass/volume] in Ser um or PlasmaOrdered By: Husam Ericksonmer on 07-21-2023 Calcium [Mass/Vol] 9.4 mg/dL Normal 8.6-10.3 [facility] Comment on above: Performed By: #### C MP, CBC #### [address] Capillary blood glucose manuel urement by glucometer (mass/volume)Ordered By: Husam Ericksonmer on 07-21-2023 Glucose [Mass/Vol] 125 mg/dL Normal [facility] Comment on above: Random Glucose Refer ence Range is dependent on time and content of last meal. Glucose of more than 200 mg/dL in a nonstressed, ambulatory subject supports the diagnosis of Diabetes Mellitus. Result Comment: [place] Glucose Reference Range is dependent on time and content of last meal. Glucose of more than 200 mg/dL in a nonstressed, ambulatory subject supports the diagnosis of Diabetes Mellitus. PERFORMED BY: [place] [address] PATHOLOGIST BUILDING CLEANER EDIL LEMUS M.D. Performed By: #### H S TROP, CK #### [address] Carbon dioxide, total [Moles /volume] in Serum or PlasmaOrdered By: Husam Taylor on 07-21-2023 CO2 [Moles/Vol] 35.9 mmol/L High 21.0-31.0 [facility] Comment on above: Performed By: #### C MP, CBC #### [address] Chloride [Moles/volume] in S emmy or PlasmaOrdered By: Husam Taylor on 07-21-2023 Chloride [Moles/Vol] 98 mmol/L Normal 98-107 [facility] Comment on above: Performed By: #### C MP, CBC #### [address] Complete Blood Count Auto Di ffon 07-21-2023 Mean Corpuscular HGB Conc 32.9 g/dL Normal 32.5-35.6 [facility] Comment on above: Performed By: #### C MP, CBC #### [address] NRBC% 0.2 /100{WBC} Normal 0-0.5 [facility] Comment on above: Performed By: #### C MP, CBC #### [address] Comprehensive Metabolic Pane azael 07-21-2023 Albumin [Mass/Vol] 3.4 g/dL Low 3.5-5.7 [facility] Comment on above: Performed By: #### C MP, CBC #### [address] Creatinine Clr Calc Pharmacy 50.91 Normal [facility] Comment on above: Result Comment: PERF ORMED BY: [place] [address] PATHOLOGIST BUILDING CLEANER EDIL LEMUS M.D. Performed By: #### C MP, CBC #### [address] GFR/1.73 sq M.predicted MDRD (S/P/Bld) [Vol rate/Area] 56.765 mL/min/{1.73_m2} Normal [facility] Comment on above: Performed By: #### C MP, CBC #### [address] Creatinine [Mass/volume] in Serum or PlasmaOrdered By: Husam Taylor on 07-21-2023 Creatinine [Mass/Vol] 1.31 mg/dL High 0.70-1.30 [facility] Comment on above: Performed By: #### C MP, CBC #### [address] Erythrocyte distribution wid th [Ratio] by Automated countOrdered By: Husam Taylor on 07-21-2023 Erythrocyte distribution width (RBC) [Ratio] 15.5 % High 12.0-14.8 [facility] Comment on above: Performed By: #### C MP, CBC #### [address] Erythrocytes [#/volume] in B lood by Automated countOrdered By: Husam Taylor on 07-21-2023 RBC (Bld) [#/Vol] 2.52 10*6/uL Low 3.90-5.60 [facility] Comment on above: Performed By: #### C MP, CBC #### [address] Glucose Poct Glucometerson 0 07-21-2023 Glucose [Mass/Vol] 118 mg/dL Normal [facility] Comment on above: Result Comment: [place] om Glucose Reference Range is dependent on time and content of last meal. Glucose of more than 200 mg/dL in a nonstressed, ambulatory subject supports the diagnosis of Diabetes Mellitus. PERFORMED BY: [place] [address] PATHOLOGIST BUILDING CLEANER EDIL LEMUS M.D. Performed By: #### H S SARAH CK #### [address] Glucose [Mass/volume] in Ser um or PlasmaOrdered By: Husam Taylor on 07-21-2023 Glucose [Mass/Vol] 112 mg/dL High 70-100 [facility] Comment on above: ADA recommended refe rence rangeRandom Glucose Reference Range is dependent on time and content of last meal. Glucose of more than 200 mg/dL in a nonstressed, ambulatory subject supports the diagnosis of Diabetes Mellitus. Result Comment: [place] om Glucose Reference Range is dependent on time and content of last meal. Glucose of more than 200 mg/dL in a nonstressed, ambulatory subject supports the diagnosis of Diabetes Mellitus. ADA recommended reference range Performed By: #### C MP, CBC #### [address] Hematocrit [Volume Fraction] of Blood by Automated countOrdered By: Husam Taylor on 07-21-2023 Hematocrit (Bld) [Volume fraction] 26.0 % Low 38.8-50.0 [facility] Comment on above: Performed By: #### C MP, CBC #### [address] Hemoglobin [Mass/volume] in BloodOrdered By: Husam Taylor on 07-21-2023 Hemoglobin (Bld) [Mass/Vol] 8.5 g/dL Low 13.0-17.0 [facility] Comment on above: Performed By: #### C MP, CBC #### [place] [address] [place] Leukocytes [#/volume] correc josefina for nucleated erythrocytes in Blood by Automated counOrdered By: Husam Taylor on 07-21-2023 WBC corrected for nucl RBC Auto (Bld) [#/Vol] 5.5 10*3/uL 4.1-10.5 [facility] Leukocytes [#/volume] in Blo od by Automated countOrdered By: Husam Taylor on 07-21-2023 WBC (Bld) [#/Vol] 5.5 10*3/uL Normal 4.1-10.5 [facility] Comment on above: Performed By: #### C MP, CBC #### [address] Lymphocytes [#/volume] in Bl ood by Automated countOrdered By: Husam Taylor on 07-21-2023 Lymphocytes (Bld) [#/Vol] 0.7 10*3/uL Low 1.00-4.8 [facility] Comment on above: Performed By: #### C MP, CBC #### [address] Lymphocytes/100 leukocytes i n Blood by Automated countOrdered By: Husam Taylor on 07-21-2023 Lymphocytes/100 WBC (Bld) 13.0 % Normal . [facility] Comment on above: Performed By: #### C MP, CBC #### [address] MCH [Entitic mass] by Automa josefina countOrdered By: Husam Taylor on 07-21-2023 MCH (RBC) [Entitic mass] 33.9 pg Normal 27.5-35.2 [facility] Comment on above: Performed By: #### C MP, CBC #### [address] MCHC Auto (RBC) [Mass/Vol]Or dered By: Husam Taylor on 07-21-2023 MCHC (RBC) [Mass/Vol] 32.9 g/dL 32.5-35.6 [facility] MCV [Entitic volume] by Auto mated countOrdered By: Husam Taylor on 07-21-2023 MCV (RBC) [Entitic vol] 103.2 fL High 83.5-101 [facility] Comment on above: Performed By: #### C MP, CBC #### [place] [address] [place] Neutrophils [#/volume] in Bl ood by Automated countOrdered By: Husam Taylor on 07-21-2023 Neutrophils (Bld) [#/Vol] 4.0 10*3/uL Normal 1.8-7.7 [facility] Comment on above: Performed By: #### C MP, CBC #### [address] No Panel InformationOrdered By: Husam Taylor on 07-21-2023 Estimated GFR (CKD-EPI) 56.765 mL/Min [facility] Creatinine Clearance (Chem 50.91 [facility] Nucleated erythrocytes [Pres ence] in Blood by Automated countOrdered By: Husam Taylor on 07-21-2023 Nucleated RBC Auto Ql (Bld) 0.2 /100{WBC} 0-0.5 [facility] Platelet mean volume [Entiti c volume] in Blood by Automated countOrdered By: Huasm Taylor on 07-21-2023 Platelet mean volume (Bld) [Entitic vol] 10.0 fL Normal 6.6-10.1 [facility] Comment on above: Performed By: #### C MP, CBC #### [address] Platelets [#/volume] in Bloo d by Automated countOrdered By: Husam Taylor on 07-21-2023 Platelets (Bld) [#/Vol] 120 10*3/uL Low 150-450 [facility] Comment on above: Performed By: #### C MP, CBC #### [place] [address] [place] Potassium [Moles/volume] in Serum or PlasmaOrdered By: Husam Taylor on 07-21-2023 Potassium [Moles/Vol] 4.3 mmol/L Normal 3.5-5.1 [facility] Comment on above: Performed By: #### C MP, CBC #### [place] [address] [place] Protein [Mass/volume] in Ser um or PlasmaOrdered By: Husam Taylor on 07-21-2023 Protein [Mass/Vol] 6.6 g/dL Normal 6.4-8.9 [facility] Comment on above: Performed By: #### C MP, CBC #### [address] Serum globulin measurement b y calculation (mass/volume)Ordered By: Husam Taylor on 07-21-2023 Globulin (S) [Mass/Vol] 3.2 g/dL Normal [facility] Comment on above: Performed By: #### C MP, CBC #### [address] Serum or plasma albumin/glob ulin mass ratioOrdered By: Husam Taylor on 07-21-2023 Albumin/Globulin [Mass ratio] 1.1 {ratio} Normal [facility] Comment on above: Performed By: #### C MP, CBC #### [address] Serum or plasma anion gap de terminationOrdered By: Husam Taylor on 07-21-2023 Anion gap [Moles/Vol] 8.4 mmol/L Normal 6.0-15.0 [facility] Comment on above: Performed By: #### C MP, CBC #### [address] Sodium [Moles/volume] in Ser um or PlasmaOrdered By: Husam Taylor on 07-21-2023 Sodium [Moles/Vol] 138 mmol/L Normal 136-145 [facility] Comment on above: Performed By: #### C MP, CBC #### [place] [address] [place] Urea nitrogen [Mass/volume] in Serum or PlasmaOrdered By: Husam Taylor on 07-21-2023 Urea nitrogen [Mass/Vol] 21 mg/dL Normal 7-25 [facility] Comment on above: Performed By: #### C MP, CBC #### [place] [address] [place] Albumin [Mass/volume] in Ser um or PlasmaOrdered By: Mani Gibbons on 07-20-2023 Albumin [Mass/Vol] 3.0 g/dL Normal 2.9-4.4 [facility] Comment on above: Performed By: #### C MP, CBC #### [address] Complete Blood Count Auto Di ffon 07-20-2023 Basophils (Bld) [#/Vol] 0.1 10*3/uL Normal 0.0-0.2 [facility] Comment on above: Result Comment: PERF ORMED BY: [place] [address] PATHOLOGIST BUILDING CLEANER EDIL LEMUS M.D. Performed By: #### C MP, CBC #### [address] Basophils/100 WBC (Bld) 1.0 % Normal . [facility] Comment on above: Performed By: #### C MP, CBC #### [address] Eosinophils (Bld) [#/Vol] 0.2 10*3/uL Normal 0.0-0.45 [facility] Comment on above: Performed By: #### C MP, CBC #### [address] Eosinophils/100 WBC (Bld) 3.6 % Normal . [facility] Comment on above: Performed By: #### C MP, CBC #### [address] Erythrocyte distribution width (RBC) [Ratio] 15.6 % High 12.0-14.8 [facility] Comment on above: Performed By: #### C MP, CBC #### [address] Hematocrit (Bld) [Volume fraction] 26.6 % Low 38.8-50.0 [facility] Comment on above: Performed By: #### C MP, CBC #### [address] Hemoglobin (Bld) [Mass/Vol] 8.8 g/dL Low 13.0-17.0 [facility] Comment on above: Performed By: #### C MP, CBC #### [address] Lymphocytes (Bld) [#/Vol] 0.9 10*3/uL Low 1.00-4.8 [facility] Comment on above: Performed By: #### C MP, CBC #### [address] Lymphocytes/100 WBC (Bld) 13.3 % Normal . [facility] Comment on above: Performed By: #### C MP, CBC #### [address] MCH (RBC) [Entitic mass] 34.3 pg Normal 27.5-35.2 [facility] Comment on above: Performed By: #### C MP, CBC #### [address] MCV (RBC) [Entitic vol] 103.4 fL High 83.5-101 [facility] Comment on above: Performed By: #### C MP, CBC #### [address] Mean Corpuscular HGB Conc 33.2 g/dL Normal 32.5-35.6 [facility] Comment on above: Performed By: #### C MP, CBC #### [address] Monocytes (Bld) [#/Vol] 0.4 10*3/uL Normal 0.0-0.8 [facility] Comment on above: Performed By: #### C MP, CBC #### [address] Monocytes/100 WBC (Bld) 6.6 % Normal . [facility] Comment on above: Performed By: #### C MP, CBC #### [address] Neutrophils (Bld) [#/Vol] 4.8 10*3/uL Normal 1.8-7.7 [facility] Comment on above: Performed By: #### C MP, CBC #### [address] Neutrophils/100 WBC (Bld) 75.5 % Normal . [facility] Comment on above: Performed By: #### C MP, CBC #### [facility] [address] [place] [address] NRBC% 0.3 /100{WBC} Normal 0-0.5 [facility] Comment on above: Performed By: #### C MP, CBC #### [address] Platelet mean volume (Bld) [Entitic vol] 10.5 fL High 6.6-10.1 [facility] Comment on above: Performed By: #### C MP, CBC #### [address] Platelets (Bld) [#/Vol] 117 10*3/uL Low 150-450 [facility] Comment on above: Performed By: #### C MP, CBC #### [address] RBC (Bld) [#/Vol] 2.57 10*6/uL Low 3.90-5.60 [facility] Comment on above: Performed By: #### C MP, CBC #### [address] WBC (Bld) [#/Vol] 6.4 10*3/uL Normal 4.1-10.5 [facility] Comment on above: Performed By: #### C MP, CBC #### [address] Comprehensive Metabolic Pane azael 07-20-2023 Albumin [Mass/Vol] 3.3 g/dL Low 3.5-5.7 [facility] Comment on above: Performed By: #### C MP, CBC #### [place] [id number] [place] Albumin/Globulin [Mass ratio] 1.1 {ratio} Normal [facility] Comment on above: Performed By: #### C MP, CBC #### [address] ALP [Catalytic activity/Vol] 69 U/L Normal 34-104 [facility] Comment on above: Performed By: #### C MP, CBC #### [address] ALT [Catalytic activity/Vol] 7 U/L Normal 7-52 [facility] Comment on above: Performed By: #### C MP, CBC #### [address] Anion gap [Moles/Vol] 9.2 mmol/L Normal 6.0-15.0 [facility] Comment on above: Performed By: #### C MP, CBC #### [address] AST [Catalytic activity/Vol] 14 U/L Normal 13-39 [facility] Comment on above: Performed By: #### C MP, CBC #### [address] Bilirubin [Mass/Vol] 0.6 mg/dL Normal 0.3-1.0 [facility] Comment on above: Performed By: #### C MP, CBC #### [address] Calcium [Mass/Vol] 9.3 mg/dL Normal 8.6-10.3 [facility] Comment on above: Performed By: #### C MP, CBC #### [place] [address] [place] Chloride [Moles/Vol] 96 mmol/L Low 98-107 [facility] Comment on above: Performed By: #### C MP, CBC #### [address] CO2 [Moles/Vol] 36.4 mmol/L High 21.0-31.[address] [facility] Comment on above: Performed By: #### C MP, CBC #### [place] [address] [place] Creatinine [Mass/Vol] 1.03 mg/dL Normal 0.70-1.30 [facility] Comment on above: Performed By: #### C MP, CBC #### [place] [address] [place] Creatinine Clr Calc Pharmacy 64.61 Normal [facility] Comment on above: Performed By: #### C MP, CBC #### [place] [address] [place] GFR/1.73 sq M.predicted MDRD (S/P/Bld) [Vol rate/Area] mL/min/{1.73_m2} Normal [facility] Comment on above: Performed By: #### C MP, CBC #### [address] Glucose [Mass/Vol] 114 mg/dL High 70-100 [facility] Comment on above: Result Comment: [facility] Glucose Reference Range is dependent on time and content of last meal. Glucose of more than 200 mg/dL in a nonstressed, ambulatory subject supports the diagnosis of Diabetes Mellitus. ADA recommended reference range Performed By: #### C MP, CBC #### [place] [address] [place] Potassium [Moles/Vol] 3.6 mmol/L Normal 3.5-5.1 [facility] Comment on above: Performed By: #### C MP, CBC #### [place] [address] [place] Protein [Mass/Vol] 6.4 g/dL Normal 6.4-8.9 [facility] Comment on above: Performed By: #### C MP, CBC #### [place] [address] [place] Sodium [Moles/Vol] 138 mmol/L Normal 136-145 [facility] Comment on above: Performed By: #### C MP, CBC #### [address] [place] [address] [facility] Urea nitrogen [Mass/Vol] 15 mg/dL Normal 7-25 [facility] Comment on above: Performed By: #### C MP, CBC #### [facility] [address] [place], [place] [id number] [facility] ECG 12 lead ECGon 07-20-2023 ECG 12 lead ECG [facility] [place] [address] [place] [address] Electrocardiograph Report Signed Patient: Brian Love MR#: [id number] : 1950 Acct:[id number] Age/Sex: 73 / M ADM Date: 07/18/23 Loc: Room: [address] [place] [address] Type: ADM IN Attending Dr: Husam Taylor DO Ordering Provider: Erlin Ledezma DO Date of Service: 07/20/23 ECG/ECG 12 lead ECG: Post Angioplasty Procedure in AM Copies to: Test Reason : Blood Pressure : / mmHG Vent. Rate : 065 BPM Atrial Rate : 065 BPM P-R Int : 192 ms QRS Dur : 080 ms QT Int : 390 ms P-R-T Axes : 018 043 098 degrees QTc Int : 405 ms Poor data quality, interpretation may be adversely affected Normal sinus rhythm Septal infarct , age undetermined Abnormal ECG When compared with ECG of 19-JUL-2023 18:43, (Unconfirmed) Septal infarct is now present Confirmed by Julio Cesar Mccormick ([id number]) on 07/21/2023 10:25:24 AM Referred By: Electronically Signed By:Julio Cesar Mccormick Transcribed By: MUS Signed By Julio Cesar Mccormick MD 07/21/23 1025 Normal [facility] Erythropoetin (EPO), Serumon 07-20-2023 Erythropoetin (EPO), Serum 19.6 m[iU]/mL High 2.6-18.5 [facility] Comment on above: Result Comment: [employer] D[employer]I 800 Immunoassay System Values obtained with different assay methods or kits cannot be used interchangeably. Results cannot be interpreted as absolute evidence of the presence or absence of malignant disease. Performed at: [address], [place] [id number] Editor Map: Fredy Choudhury PhD, Phone: [phone] PERFORMED BY: [place] [address] PATHOLOGIST BUILDING CLEANER EDIL LEMUS M.D. Performed By: #### C MP, CBC #### [address] Ferritin [Mass/volume] in Se rum or PlasmaOrdered By: Mani Gibbons on 07-20-2023 Ferritin [Mass/Vol] 78.5 ng/mL Normal 23.9-336.2 [facility] Comment on above: Performed By: #### C MP, CBC #### [address] Folateon 07-20-2023 Folate 4.8 ng/mL Low >5.9 [facility] Comment on above: Result Comment: Clotilde te reference range: >5.9 ng/ml The WHO technical consultation on folate and vitamin b12 deficiencies has determined that folate concentrations less than 4 ng/ml are considered deficient. PERFORMED BY: [place] [address] PATHOLOGIST BUILDING CLEANER EDIL LEMUS M.D. Performed By: #### C MP, CBC #### [address] Folate [Mass/volume] in Seru m or PlasmaOrdered By: Mani Gibbons on 07-20-2023 Folate [Mass/Vol] 4.8 ng/mL >5.9 [facility] Comment on above: Folate reference ran ge: >5.9 ng/mlThe WHO technical consultation on folate and vitamin [id number] has determined that folate concentrations lessthan 4 ng/ml are considered deficient. Free K+L LT Chains, Qn, Son 07-20-2023 Free [place] Light Chains, S 47.5 mg/L High 3.3-19.4 [facility] Comment on above: Performed By: #### C MP, CBC #### [address] Free Lambda Light Chains, S 32.4 mg/L High 5.7-26.3 [facility] Comment on above: Performed By: #### C MP, CBC #### [address] [place]/Lambda Ratio, S 1.47 Normal 0.26-1.65 [facility] Comment on above: Result Comment: Perf ormed at: CB - [facility] [address] [id number] Editor Map: Fredy Choudhury PhD, Phone: [phone] PERFORMED BY: [place] [address] PATHOLOGIST BUILDING CLEANER EDIL LEMUS M.D. Performed By: #### C MP, CBC #### [address] Glucose Poct Glucometerson 0 07-20-2023 Glucose [Mass/Vol] 111 mg/dL Normal [facility] Comment on above: Result Comment: [facility] [place] Glucose Reference Range is dependent on time and content of last meal. Glucose of more than 200 mg/dL in a nonstressed, ambulatory subject supports the diagnosis of Diabetes Mellitus. PERFORMED BY: [place] [address] PATHOLOGIST BUILDING CLEANER EDIL LEMUS M.D. Performed By: #### G LULS #### Point of Care testing , Glucose [Mass/Vol] 121 mg/dL Normal [facility] Comment on above: Result Comment: [facility] [place] Glucose Reference Range is dependent on time and content of last meal. Glucose of more than 200 mg/dL in a nonstressed, ambulatory subject supports the diagnosis of Diabetes Mellitus. PERFORMED BY: [place] [address] PATHOLOGIST BUILDING CLEANER EDIL LEMUS M.D. Performed By: #### H S TROP, CK #### [address] Glucose [Mass/Vol] 136 mg/dL Normal [facility] Comment on above: Result Comment: [place] Glucose Reference Range is dependent on time and content of last meal. Glucose of more than 200 mg/dL in a nonstressed, ambulatory subject supports the diagnosis of Diabetes Mellitus. PERFORMED BY: [place] [address] PATHOLOGIST BUILDING CLEANER EDIL LEMUS M.D. Performed By: #### G LULS #### Point of Care testing , Glucose [Mass/Vol] 138 mg/dL Normal [facility] Comment on above: Result Comment: [facility] [place] Glucose Reference Range is dependent on time and content of last meal. Glucose of more than 200 mg/dL in a nonstressed, ambulatory subject supports the diagnosis of Diabetes Mellitus. PERFORMED BY: [place] [address] PATHOLOGIST BUILDING CLEANER EDIL LEMUS M.D. Performed By: #### G LULS #### Point of Care testing , IgA [Mass/volume] in Serum o r PlasmaOrdered By: Mani Gibbons on 07-20-2023 IgA [Mass/Vol] 431 mg/dL 61-437 [facility] IgG [Mass/volume] in Serum o r PlasmaOrdered By: Mani Gibbons on 07-20-2023 IgG [Mass/Vol] 1219 mg/dL [phone] [facility] IgM [Mass/volume] in Serum o r PlasmaOrdered By: Mani Gibbons on 07-20-2023 IgM [Mass/Vol] 21 mg/dL 15-143 [facility] Comment on above: Result confirmed on concentration.Performed at: - [facility] [address] [id number] Director: Fredy Choudhury PhD, Phone: [phone] Immunofixation,Serumon 07-19 Immunofixation, Serum Comment: Normal . [facility] Comment on above: Result Comment: Pres ence of monoclonal protein is unclear at this time. Suggest repeat in 3 to 6 months if clinically indicated. Performed By: #### H S TROP, CK #### [facility] [address] [place] [address] Immunoglobulin A, Serum 431 mg/dL Normal 61-437 [facility] Comment on above: Performed By: #### H S TROP, CK #### [facility] [address] [id number] [facility] Immunoglobulin G 1219 mg/dL Normal 603-1613 [facility] Comment on above: Performed By: #### H S TROP, CK #### [facility] [address] [id number] [facility] Immunoglobulin M, Serum 21 mg/dL Normal 15-143 [facility] Comment on above: Result Comment: Resu lt confirmed on concentration. Performed at: [facility] [facility] [address] [id number] Editor Map: Fredy Choudhury PhD, Phone: [phone] Performed By: #### H S TROP, CK #### [address] [id number] [facility] Immunoglobulin light chains. kappa.free [Mass/volume] in SerumOrdered By: Mani Gibbons on 07-20-2023 Immunoglobulin light chains.kappa.free (S) [Mass/Vol] 47.5 mg/L 3.3-19.4 [facility] Immunoglobulin light chains. kappa.free/Immunoglobulin light chains.lambda.free [MassOrdered By: Mani Gibbons on 07-20-2023 Immunoglobulin light chains.kappa.free/Immun oglobulin light chains.lambda.free (S) [Mass ratio] 1.47 0.26-1.65 [facility] Comment on above: Performed at: [place] [facility] [address] [id number] Director: Fredy Choudhury PhD, Phone: [phone] Immunoglobulin light chains. lambda.free [Mass/volume] in Serum or PlasmaOrdered By: Mani Gibbons on 07-20-2023 Immunoglobulin light chains.lambda.free [Mass/Vol] 32.4 mg/L 5.7-26.3 [facility] Iron [Mass/volume] in Serum or PlasmaOrdered By: Mani Gibbons on 07-20-2023 Iron [Mass/Vol] 73 ug/dL Normal 50-212 [facility] Comment on above: Performed By: #### C MP, CBC #### [facility] [address] [id number] [facility] Iron and TIBC Profileon 06-22 % Iron Saturation 19.5 % Low 20-50 [facility] Comment on above: Performed By: #### C MP, CBC #### [facility] [address] [place] [address] [place] Total Iron Binding Capacity 375 ug/dL Normal 255-450 [facility] Comment on above: Performed By: #### C MP, CBC #### [facility] [address] [place] [address] [facility] Iron binding capacity [Mass/ volume] in Serum or PlasmaOrdered By: Mani Gibbons on 07-20-2023 Iron binding capacity [Mass/Vol] 375 ug/dL 255-450 [facility] Iron saturation [Mass Fracti on] in Serum or PlasmaOrdered By: Mani Gibbons on 07-20-2023 Iron saturation [Mass fraction] 19.5 % 20-50 [facility] Azael 07-20-2023 L Specimen: [id number] Received: 07/20/23 Status: WHITNEY Duncan Num: [id number] Spec Type: Impression Subm Dr: Mani Gibbons II, DO Tissues: PATHPER Procedures: PATHREVIEW Age/ Patient Sex Location Account Attending Physician Brian Love 73/M 4P [id number] Husam Taylor DO SPEC NUM: [id number] RECD: 07/20/23 STATUS: WHITNEY DUNCAN NUM: [id number] ISIDRA: 07/20/[address]: Mani Gibbons II, DO ENTERED: 07/20/[address] [facility] [address]: SPEC TYPE: Impression DEPT: NC ENTERED BY: [id number] RECV BY: [id number] ORDERED: PATHREVIEW ORDERED: PATHREVIEW Pathologist Review Macrocytic Anemia is noted. Differential Diagnosis Includes Bone Marrow Pathology, B12/folate Deficiency, Liver Disease, Hypothyroidism, Alcoholism, Etc. Clinical Correlation Is Required. Thrombocytopenia Is Noted. Differential Diagnosis Includes Peripheral Etiology (e.g. ITP, Drug-induced) Vs. Bone Marrow Disorder. Clinical Correlation [place] Required. [id number] CBC Date Time Test Result Flag (u) Normal Range 07/20/23 0450 WBC 6.4 4.1-10.5 X10E3/uL RBC 2.57 L 3.90-5.60 X10E6/uL HGB 8.8 L 13.0-17.0 g/dL HCT 26.6 L 38.8-50.0 % MCV 103.4 H 83.5-101 fl MCH 34.3 27.5-35.2 pg MCHC 33.2 32.5-35.6 g/dL RDW 15.6 H 12.0-14.8 % Plt 117 L 150-450 x10E3/uL MPV 10.5 H 6.6-10.1 fl Neut % (Auto) 75.5 . % Specimen: [id number] Received: 07/20/23 Status: WHITNEY [place] Num: [id number] Spec Type: Impression Subm Dr: Mani Gibbons, II, DO Tissues: PATHPER Procedures: PATHREVIEW Patient: Brian Love [id number] (Continued) Specimen: [id number] Received: 07/20/23 (Continued) CBC (Continued) Signed (signature on file) Juvencio Rodney MD 07/25/23 1522 Specimen: [id number] Received: 07/20/23 Status: WHITNEY Duncan Num: [id number] Spec Type: Impression Subm Dr: Mani Gibbons II, DO Tissues: PATHPER Procedures: PATHREVIEW Patient: Brian Love [id number] (Continued) Specimen: Received: 07/20/23 (Continued) CBC (Continued) Lymp % (Auto) 13.3 . % [place] % (Auto) 6.6 . % Eos % (Auto) 3.6 . % Baso % (Auto) 1.0 . % NRBC% 0.3 0-0.5 /100 WBC Neut # (Auto) 4.8 1.8-7.7 x10E3/uL Lymph # (Auto) 0.9 L 1.00-4.8 x10E3/uL [place] # (Auto) 0.4 0.0-0.8 x10E3/uL Eos # (Auto) 0.2 0.0-0.45 x10E3/uL Baso# (Auto) 0.1 0.0-0.2 x10E3/uL Specimen: [id number] Received: 07/20/23 Status: WHITNEY Duncan Num: [id number] Spec Type: Impression Subm Dr: Mani Gibbons II, DO Tissues: PATHPER Procedures: PATHREVIEW Patient: Brian Love [id number] (Continued) Signed (signature on file) Juvencio Rodney MD 07/25/23 1522 Normal [facility] Methylmalonic Acidon 024 Methylmalonic Acid 659 High 0-378 [facility] Comment on above: Result Comment: This test was developed and its performance characteristics determined by [facility]. It has not been cleared or approved by the Food and Drug Administration. Performed at: [address] [id number] Editor Map: Agustin Jim MD, Phone: [phone] Performed By: #### H S TROP, CK #### [facility] [address] [place] [address] No Panel InformationOrdered By: Mani Gibbons on 07-20-2023 Protein Electrophoresis M-Mikey Not observed g/dL Not Observed [facility] Protein Electrophoresis Note See comment . [facility] Comment on above: Protein electrophore sis scan will follow via computer,mail, or shirt trimmer delivery. Serum Immunofixation Comment: . [facility] Comment on above: Presence of monoclon al protein is unclear at this time. Suggestrepeat in 3 to 6 months if clinically indicated. Slides for Pathologist Review Ordered path review [facility] Pathologist Slide Reviewon 0 07-20-2023 Pathologist Slide Review Ordered Path Review Normal [facility] Comment on above: Result Comment: PERF ORMED BY: [place] [address] PATHOLOGIST BUILDING CLEANER EDIL LEMUS M.D. Performed By: #### C MP, CBC #### [facility] [address] [place] [address] Protein Electrophoresis, Ser umon 07-20-2023 Ozekr-0-Yfrvzvfx 0.3 g/dL Normal 0.0-0.[address] [facility] Comment on above: Performed By: #### C MP, CBC #### [address] Rajvk-5-Intkrkck 0.7 g/dL Normal 0.4-1.[address] [facility] Comment on above: Performed By: #### C MP, CBC #### [address] Beta Globulin 1.1 g/dL Normal 0.7-1.3 [facility] Comment on above: Performed By: #### C MP, CBC #### [address] Gamma Globulin 1.1 g/dL Normal 0.4-1.8 [facility] Comment on above: Performed By: #### C MP, CBC #### [address] M-Mikey Not Observed Normal Not Observed [facility] Comment on above: Performed By: #### C MP, CBC #### [address] SPE-Note Normal . [facility] Comment on above: Result Comment: Prot ein electrophoresis scan will follow via computer, mail, or shirt trimmer delivery. Performed By: #### C MP, CBC #### [address] Protein [Mass/volume] in Ser um or PlasmaOrdered By: Mani iGbbons on 07-20-2023 Protein [Mass/Vol] 6.1 g/dL Normal 6.0-8.5 [facility] Comment on above: Performed By: #### C MP, CBC #### [address] Serum globulin measurement ( mass/volume)Ordered By: Mani Gibbons on 07-20-2023 Globulin (S) [Mass/Vol] 3.1 g/dL Normal [facility] Comment on above: Performed By: #### C MP, CBC #### [address] Serum or plasma albumin/glob ulin mass ratioOrdered By: Mani Gibbons on 07-20-2023 Albumin/Globulin [Mass ratio] 1.0 {ratio} Normal 0.7-1.7 [facility] Comment on above: Performed By: #### C MP, CBC #### [facility] [address] [place] [address] Serum or plasma alpha 1 glob ulin measurement by electrophoresis (mass/volume)Ordered By: Mani Gibbons on 07-20-2023 Alpha 1 globulin Elph [Mass/Vol] 0.3 g/dL 0.0-0.4 [facility] Serum or plasma alpha 2 glob ulin measurement by electrophoresis (mass/volume)Ordered By: Mani Gibbons on 07-20-2023 Alpha 2 globulin Elph [Mass/Vol] 0.7 g/dL 0.4-1.0 [facility] Serum or plasma beta globuli n measurement by electrophoresis (mass/volume)Ordered By: Mani Gibbons on 07-20-2023 Beta globulin Elph [Mass/Vol] 1.1 g/dL 0.7-1.3 [facility] Serum or plasma gamma globul in measurement by electrophoresis (mass/volume)Ordered By: Mani Gibbons on 07-20-2023 Gamma globulin Elph [Mass/Vol] 1.1 g/dL 0.4-1.8 [facility] Transferrin [Mass/volume] in Serum or PlasmaOrdered By: Mani Gibbons on 07-20-2023 Transferrin [Mass/Vol] 268 mg/dL Normal 203-362 [facility] Comment on above: Performed By: #### C MP, CBC #### [facility] [address] [place] [address] Troponin I High Sensitivityo n 07-20-2023 Troponin I High Sensitivity 172.2 pg/mL Off scale high 0.0-20.0 [facility] Comment on above: Result Comment: Crit ical Result : Called to and read back by: TIAN FLOREZ at: 07/20/2023 06:14:54 by:[id number] PERFORMED BY: [place] [address] PATHOLOGIST BUILDING CLEANER EDIL LEMUS M.D. Performed By: #### H S TROP, CK #### [address] Troponin I.cardiac [Mass/vol ume] in Serum or Plasma by Detection limit <= 0.01 ng/Ordered By: Erlin Ledezma on 07-20-2023 Troponin I.cardiac DL <= 0.01 ng/mL [Mass/Vol] 172.2 pg/mL 0.0-20.0 [facility] Comment on above: Critical Result : Ca lled to and read back by: TIAN FLOREZ at: 07/20/2023 06:14:54 by:[id number] Vitamin B12 ser/plasOrdered By: Mani Gibbons on 07-20-2023 Cobalamin (Vitamin B12) [Mass/Vol] 210 pg/mL Normal 180-914 [facility] Comment on above: Performed By: #### C MP, CBC #### [address] BNP ser/plasOrdered By: Derek Taylor on 07-19-2023 Natriuretic peptide B (Bld) [Mass/Vol] 438.0 pg/mL High 5-100 [facility] Comment on above: Result Comment: PERF ORMED BY: [place] [address] PATHOLOGIST BUILDING CLEANER EDIL LEMUS M.D. Performed By: #### C MP, CBC #### [address] Complete Blood Count Auto Di ffon 07-19-2023 Basophils (Bld) [#/Vol] 0.1 10*3/uL Normal 0.0-0.2 [facility] Comment on above: Result Comment: PERF ORMED BY: [place] [address] PATHOLOGIST BUILDING CLEANER EDIL LEMUS M.D. Performed By: #### C MP, CBC #### [address] Basophils/100 WBC (Bld) 1.4 % Normal . T kristie [facility] Comment on above: Performed By: #### C MP, CBC #### [address] Eosinophils (Bld) [#/Vol] 0.2 10*3/uL Normal 0.0-0.45 [facility] Comment on above: Performed By: #### C MP, CBC #### [address] Eosinophils/100 WBC (Bld) 2.9 % Normal . [facility] Comment on above: Performed By: #### C MP, CBC #### [address] Erythrocyte distribution width (RBC) [Ratio] 16.3 % High 12.0-14.8 [facility] Comment on above: Performed By: #### C MP, CBC #### [address] Hematocrit (Bld) [Volume fraction] 27.8 % Low 38.8-50.0 [facility] Comment on above: Performed By: #### C MP, CBC #### [address] Hemoglobin (Bld) [Mass/Vol] 9.1 g/dL Low 13.0-17.0 [facility] Comment on above: Performed By: #### C MP, CBC #### [address] Lymphocytes (Bld) [#/Vol] 1.4 10*3/uL Normal 1.00-4.8 [facility] Comment on above: Performed By: #### C MP, CBC #### [address] Lymphocytes/100 WBC (Bld) 22.9 % Normal . [facility] Comment on above: Performed By: #### C MP, CBC #### [address] MCH (RBC) [Entitic mass] 33.9 pg Normal 27.5-35.2 [facility] Comment on above: Performed By: #### C MP, CBC #### [address] MCV (RBC) [Entitic vol] 103.5 fL High 83.5-101 [facility] Comment on above: Performed By: #### C MP, CBC #### [address] Mean Corpuscular HGB Conc 32.8 g/dL Normal 32.5-35.6 [facility] Comment on above: Performed By: #### C MP, CBC #### [address] Monocytes (Bld) [#/Vol] 0.4 10*3/uL Normal 0.0-0.8 [facility] Comment on above: Performed By: #### C MP, CBC #### [address] Monocytes/100 WBC (Bld) 6.8 % Normal . [facility] Comment on above: Performed By: #### C MP, CBC #### [address] Neutrophils (Bld) [#/Vol] 4.1 10*3/uL Normal 1.8-7.7 [facility] Comment on above: Performed By: #### C MP, CBC #### [address] Neutrophils/100 WBC (Bld) 66.0 % Normal . [facility] Comment on above: Performed By: #### C MP, CBC #### [address] NRBC% 0.3 /100{WBC} Normal 0-0.5 [facility] Comment on above: Performed By: #### C MP, CBC #### [address] Platelet mean volume (Bld) [Entitic vol] 10.5 fL High 6.6-10.1 [facility] Comment on above: Performed By: #### C MP, CBC #### [address] Platelets (Bld) [#/Vol] 113 10*3/uL Low 150-450 [facility] Comment on above: Performed By: #### C MP, CBC #### [address] RBC (Bld) [#/Vol] 2.69 10*6/uL Low 3.90-5.60 [facility] Comment on above: Performed By: #### C MP, CBC #### [address] WBC (Bld) [#/Vol] 6.3 10*3/uL Normal 4.1-10.5 [facility] Comment on above: Performed By: #### C MP, CBC #### [address] Comprehensive Metabolic Pane azael 07-19-2023 Albumin [Mass/Vol] 3.6 g/dL Normal 3.5-5.7 [facility] Comment on above: Performed By: #### C MP, CBC #### [address] Albumin/Globulin [Mass ratio] 1.2 {ratio} Normal [facility] Comment on above: Performed By: #### C MP, CBC #### [address] ALP [Catalytic activity/Vol] 78 U/L Normal 34-104 [facility] Comment on above: Performed By: #### C MP, CBC #### [address] ALT [Catalytic activity/Vol] 7 U/L Normal 7-52 [facility] Comment on above: Performed By: #### C MP, CBC #### [address] Anion gap [Moles/Vol] 7.8 mmol/L Normal 6.0-15.0 [facility] Comment on above: Performed By: #### C MP, CBC #### [address] AST [Catalytic activity/Vol] 14 U/L Normal 13-39 [facility] Comment on above: Performed By: #### C MP, CBC #### [place] [address] [place] Bilirubin [Mass/Vol] 0.6 mg/dL Normal 0.3-1.0 [facility] Comment on above: Performed By: #### C MP, CBC #### [address] Calcium [Mass/Vol] 9.2 mg/dL Normal 8.6-10.3 [facility] Comment on above: Performed By: #### C MP, CBC #### [place] [address] [place] Chloride [Moles/Vol] 99 mmol/L Normal 98-107 [facility] Comment on above: Performed By: #### C MP, CBC #### [place] [address] [place] CO2 [Moles/Vol] 37.5 mmol/L High 21.0-31.[address] [facility] Comment on above: Performed By: #### C MP, CBC #### [place] [address] [place] Creatinine [Mass/Vol] 1.06 mg/dL Normal 0.70-1.30 [facility] Comment on above: Performed By: #### C MP, CBC #### [place] [address] [place] Creatinine Clr Calc Pharmacy 62.79 Normal [facility] Comment on above: Performed By: #### C MP, CBC #### [place] [address] [place] GFR/1.73 sq M.predicted MDRD (S/P/Bld) [Vol rate/Area] mL/min/{1.73_m2} Normal [facility] Comment on above: Performed By: #### C MP, CBC #### [place] [address] [place] Globulin (S) [Mass/Vol] 3.0 g/dL Normal T [facility] Comment on above: Performed By: #### C MP, CBC #### [address] Glucose [Mass/Vol] 103 mg/dL High 70-100 [facility] Comment on above: Result Comment: [facility] [place] Glucose Reference Range is dependent on time and content of last meal. Glucose of more than 200 mg/dL in a nonstressed, ambulatory subject supports the diagnosis of Diabetes Mellitus. ADA recommended reference range Performed By: #### C MP, CBC #### [address] Potassium [Moles/Vol] 4.3 mmol/L Normal 3.5-5.1 [facility] Comment on above: Performed By: #### C MP, CBC #### [address] Protein [Mass/Vol] 6.6 g/dL Normal 6.4-8.9 [facility] Comment on above: Performed By: #### C MP, CBC #### [place] [address] [place] Sodium [Moles/Vol] 140 mmol/L Normal 136-145 [facility] Comment on above: Performed By: #### C MP, CBC #### [place] [address] [place] Urea nitrogen [Mass/Vol] 17 mg/dL Normal 7-25 [facility] Comment on above: Performed By: #### C MP, CBC #### [place] [address] [place] Creatine Kinaseon 07-19-2023 CK [Catalytic activity/Vol] 30 U/L Normal 30-223 [facility] Comment on above: Performed By: #### H S TROP, CK #### [address] [place] [address] [facility] Creatine kinase [Enzymatic a ctivity/volume] in Serum or PlasmaOrdered By: Husam Taylor on 07-19-2023 CK [Catalytic activity/Vol] 28 U/L Low 30-223 [facility] Comment on above: Performed By: #### C K, HS TROP #### [facility] [address] [place], [place] [id number] [facility] ECG 12 lead ECGon 07-19-2023 ECG 12 lead ECG [facility] [place] [address] Electrocardiograph Report Signed Patient: Brian Love MR#: [id number] : 1950 Acct:[id number] Age/Sex: 73 / M ADM Date: 07/18/23 Loc: Room: [address] [place] [address] Type: ADM IN Attending Dr: Husam Taylor DO Ordering Provider: Erlin Ledezma DO Date of Service: 07/19/23 ECG/ECG 12 lead ECG: Post Angioplasty Procedure Copies to: Test Reason : Blood Pressure : / mmHG Vent. Rate : 063 BPM Atrial Rate : 063 BPM P-R Int : 204 ms QRS Dur : 080 ms QT Int : 418 ms P-R-T Axes : 024 063 051 degrees QTc Int : 427 ms Normal sinus rhythm Nonspecific T wave abnormality Abnormal ECG When compared with ECG of 19-JUL-2023 18:42, (Unconfirmed) No significant change was found Confirmed by Julio Cesar Mccormick ([id number]) on 07/21/2023 10:25:01 AM Referred By: Electronically Signed By:Julio Cesar Mccormick Transcribed By: MUS Signed By Julio Cesar Mccormick MD 07/21/23 1025 Normal [facility] ECH echo transthoracicon ECH echo transthoracic [facility] [address] [place] [id number] Echocardiogram Signed Patient: Brian Love MR#: [id number] : 1950 Acct:[id number] Age/Sex: 73 / M ADM Date: 07/18/23 Loc: Room: 8G4208-8 Type: ADM IN Attending Dr: Husam Taylor DO Ordering Provider: Zakia Butcher MD Date of Service: 07/18/23 ECH/ECH echo transthoracic: Aortic stenosis; LV function Copies to: Zakia Butcher MD Height: 60 in Weight: 241 lb Performed By: Sara Yousif RDCS BSA: 2.0 m2 BP: 127/70 mmHg HR: 60 Reason For Study: Aortic stenosis; LV function History: COPD. DM. SARAH. HLD. GERD. CAD. CHF. [place]. HTN. CABG. Anemia. AAA Repair. Family history of CAD. Interpretation Summary Ejection Fraction = 65-70%. The left ventricular wall motion is normal. Moderate valvular aortic stenosis. Compared to the previous study, the degree of has progressed to moderate. Procedure/Quality: A two-dimensional transthoracic echocardiogram with color flow, Doppler and injection of contrast agent Definity was performed. The study was technically suboptimal in quality due to patient body habitus . Left Ventricle: The left ventricular size is normal. The left ventricular thickness is normal. Ejection Fraction = 65-70%. The left ventricular wall motion is normal. Left Atrium: The left atrium appears normal in size. Right Atrium: The right atrium appears normal in size. Right Ventricle: The right ventricle is not well visualized. Aortic Valve: The aortic valve is trileaflet. The aortic valve is moderately calcified. Moderate valvular aortic stenosis. The aortic valve area is calculated to be 1.0 cm 2 . The aortic valve peak velocity is 382.8 cm/sec . The aortic valve mean gradient is 35.5 mmHg . No aortic regurgitation is present. Mitral Valve: The mitral valve is normal in structure. No significant mitral valve stenosis. There is no mitral regurgitation noted. Tricuspid Valve: The tricuspid valve is not well visualized. Pulmonic Valve: The pulmonic valve is not well visualized. No significant pulmonic regurgitation. Arteries: The aortic root is normal size. Pericardium/Pleura: No pericardial effusion seen. There is no pleural effusion. IVC/Hepatic Veins: The inferior vena cava was not visualized during the exam. Measurements with Normals IVSd: 1.3 cm (0.7-1.1 cm)LVIDd: 4.9 cm (3.7-5.4 cm) LVPWd: 1.2 cm (0.7-1.1 cm)LVIDs: 3.5 cm (2.3-3.6 cm) LA dimension: 4.3 cm (2.3-4.0 cm)Ao root diam: 2.8 cm(2.0-3.6 cm) asc Aorta Diam: 3.7 cm(2.1-3.4cm) Doppler with Normals RVSP(TR): 38.0 mmHg (18-35mmHg) LV V1 max: 102.8 cm/sec (0.7-1.7m/s)MV E max shorty: 123.0 cm/sec(0.8-1.3m/s) MV A max shorty: 106.7 cm/sec(0.0-0.0m/s) MV E/A: 1.2 (<1.5) MMode/2D Measurements Calculations TAPSE: 1.6 cm FS: 27.4 % Ao root area: LVOT diam: 2.2 cm RV S Shorty: EDV(Teich): 6.0 cm2 LVOT area: 3.8 cm2 10.1 cm/sec 111.2 ml ESV(Teich): 52.1 ml EF(Teich): 53.1 % __ LVLd ap4: 7.5 cm SV(MOD-sp4): LAV(MOD-sp4): LA A2 area: 18.7 cm2 EDV(MOD-sp4): 89.7 ml 48.6 ml 127.0 ml LAV(MOD-sp2): LA A4 area: 18.7 cm2 LVLs ap4: 6.5 cm 49.2 ml LA length (vol): ESV(MOD-sp4): 5.9 cm 37.3 ml LA vol: 50.5 ml EF(MOD-sp4): 70.6 % LA vol index: 25.0 ml/m2 Doppler Measurements Calculations MV dec time: MV V2 max: E/E' lat: 21.0 MV dec slope: 0.18 sec 128.6 cm/sec E/E' med: 22.8 MV max P.6 mmHg 685.3 cm/sec2 MV V2 mean: 68.0 cm/sec MV mean P.3 mmHg MV V2 VTI: 41.9 cm MVA(VTI): 2.1 cm2 __ Ao V2 max: AI max shorty: LV V1 max PG: TV max P.0 mmHg 382.8 cm/sec 387.6 cm/sec 4.2 mmHg Ao max PG: AI max P.3 mmHg LV V1 mean P.6 mmHg AI dec slope: 2.3 mmHg Ao mean PG: LV V1 mean: 35.5 mmHg 265.6 cm/sec2 72.4 cm/sec Ao V2 mean: AI P1/2t: 427.5 msec LV V1 VTI: 284.4 cm/sec 23.3 cm Ao V2 VTI: 94.6 cm CYNDI(I,D): 0.94 cm2 CYNDI(V,D): 1.0 cm2 __ TR max shorty: 295.6 cm/sec TR max P.0 mmHg RAP systole: 3.0 mmHg Transcribed By: JOEL Performed At: 07/19/23 1530 Signed By: Zakia Butcher MD 07/19/23 1724 Normal [facility] Glucose Poct Glucometerson 0 07-19-2023 Commemt1 Glu2: Cleaned Meter Normal [facility] Comment on above: Result Comment: PERF ORMED BY: [place] [address] PATHOLOGIST BUILDING CLEANER EDIL LEMUS M.D. Performed By: #### H S TROP, CK #### [address] Glucose [Mass/Vol] 94 mg/dL Normal [facility] Comment on above: Result Comment: [place] Glucose Reference Range is dependent on time and content of last meal. Glucose of more than 200 mg/dL in a nonstressed, ambulatory subject supports the diagnosis of Diabetes Mellitus. Performed By: #### H S TROP, CK #### [address] Commemt1 Glu2: Cleaned Meter Normal [facility] Comment on above: Result Comment: PERF ORMED BY: [place] [address] PATHOLOGIST BUILDING CLEANER EDIL LEMUS M.D. Performed By: #### C MP, CBC #### [address] Glucose [Mass/Vol] 91 mg/dL Normal [facility] Comment on above: Result Comment: [place] [facility] Glucose Reference Range is dependent on time and content of last meal. Glucose of more than 200 mg/dL in a nonstressed, ambulatory subject supports the diagnosis of Diabetes Mellitus. Performed By: #### C MP, CBC #### [address] Glucose [Mass/Vol] 100 mg/dL Normal [facility] Comment on above: Result Comment: [place] om Glucose Reference Range is dependent on time and content of last meal. Glucose of more than 200 mg/dL in a nonstressed, ambulatory subject supports the diagnosis of Diabetes Mellitus. PERFORMED BY: [place] [address] PATHOLOGIST BUILDING CLEANER EDIL LEMUS M.D. Performed By: #### G LULS #### Point of Care testing , Glucose [Mass/Vol] 114 mg/dL Normal [facility] Comment on above: Result Comment: [place] om Glucose Reference Range is dependent on time and content of last meal. Glucose of more than 200 mg/dL in a nonstressed, ambulatory subject supports the diagnosis of Diabetes Mellitus. PERFORMED BY: [place] [address] PATHOLOGIST BUILDING CLEANER EDIL LEMUS M.D. Performed By: #### H S TROP, CK #### [place] [address] [place] Magnesium [Mass/volume] in S emmy or PlasmaOrdered By: Husam Taylor on 07-19-2023 Magnesium [Mass/Vol] 1.6 mg/dL Low 1.9-2.7 [facility] Comment on above: Result Comment: PERF ORMED BY: [place] [address] PATHOLOGIST BUILDING CLEANER EDIL LEMUS M.D. Performed By: #### C MP, CBC #### [facility] [address] [place] [address] No Panel InformationOrdered By: Husam Taylor on 07-19-2023 Bedside Glucose Comment Glu2: cleaned meter [facility] Troponin I High Sensitivityo n 07-19-2023 Troponin I High Sensitivity 84.2 pg/mL Off scale high 0.0-20.0 [facility] Comment on above: Result Comment: Crit ical Result : Called to and read back by: HOWARD GAITAN at: 07/19/2023 14:10:52 by:JED PERFORMED BY: [place] [address] PATHOLOGIST BUILDING CLEANER EDIL LEMUS M.D. Performed By: #### H S TROP, CK #### [address] Troponin I High Sensitivity 110.3 pg/mL Off scale high 0.0-20.0 [facility] Comment on above: Result Comment: Crit ical Result : Called to and read back by: BRITTANY MORRIS at: 07/19/2023 01:39:47 by:[id number] PERFORMED BY: [place] [address] PATHOLOGIST BUILDING CLEANER EDIL LEMUS M.D. Performed By: #### H S TROP, CK #### [address] Creatine Kinaseon 07-18-2023 CK [Catalytic activity/Vol] 32 U/L Normal 30-223 [facility] Comment on above: Performed By: #### H S TROP, CK #### [address] CK [Catalytic activity/Vol] 34 U/L Normal 30-223 [facility] Comment on above: Performed By: #### H S TROP, CK #### [address] CK [Catalytic activity/Vol] 35 U/L Normal 30-223 [facility] Comment on above: Performed By: #### H S TROP, CK #### [address] Glucose Poct Glucometerson 0 07-18-2023 Glucose [Mass/Vol] 130 mg/dL Normal [facility] Comment on above: Result Comment: [place] Glucose Reference Range is dependent on time and content of last meal. Glucose of more than 200 mg/dL in a nonstressed, ambulatory subject supports the diagnosis of Diabetes Mellitus. PERFORMED BY: [place] [address] PATHOLOGIST BUILDING CLEANER EDIL LEMUS M.D. Performed By: #### G RAULITO #### Point of Care testing , Commemt1 Glu2: Cleaned Meter Normal [facility] Comment on above: Result Comment: PERF ORMED BY: [place] [address] PATHOLOGIST BUILDING CLEANER EDIL LEMUS M.D. Performed By: #### H S TROP, CK #### [address] Glucose [Mass/Vol] 170 mg/dL Normal [facility] Comment on above: Result Comment: [facility] [place] Glucose Reference Range is dependent on time and content of last meal. Glucose of more than 200 mg/dL in a nonstressed, ambulatory subject supports the diagnosis of Diabetes Mellitus. Performed By: #### H S TROP, CK #### [place] [address] [place] Troponin I High Sensitivityo n 07-18-2023 Troponin I High Sensitivity 101.3 pg/mL Off scale high 0.0-20.0 [facility] Comment on above: Result Comment: Crit ical Result : Called to and read back by: BRITTANY MORRIS at: 07/18/2023 21:03:42 by:DC PERFORMED BY: [place] [address] PATHOLOGIST BUILDING CLEANER EDIL LEMUS M.D. Performed By: #### H S TROP, CK #### [address] Troponin I High Sensitivity 106.1 pg/mL Off scale high 0.0-20.0 [facility] Comment on above: Result Comment: Crit ical Result : Called to and read back by: HOWARD GAITAN at: 07/18/2023 17:14:33 by:DC PERFORMED BY: [place] [address] PATHOLOGIST BUILDING CLEANER EDIL LEMUS M.D. Performed By: #### H S TROP, CK #### [address] Troponin I High Sensitivity 114.8 pg/mL Off scale high 0.0-20.0 [facility] Comment on above: Result Comment: Crit ical Result : Called to and read back by: HOWARD FELIPE at: 07/18/2023 16:00:13 by:DC PERFORMED BY: [place] [address] PATHOLOGIST BUILDING CLEANER EDIL LEMUS M.D. Performed By: #### H S TROP, CK #### [place] [id number] [facility] HbA1c (Bld) [Mass fraction]o n 10-14-2022 A1C HEMOGLOBIN 5.9 [employer] Other A1C HEMOGLOBIN [employer] Other Microalbumin Analyzeron 09-22 Albumin DL <= 20 mg/L (U) [Mass/Vol] 30-300mg/g [employer] Other Albumin Test strip detection limit <= 20 mg/L (U) [Mass/Vol] 150mg/dL [employer] Other Creatinine (U) [Mass/Vol] 300md/L [employer] Other HbA1c (Bld) [Mass fraction]o n 10-19-2021 A1C HEMOGLOBIN 5.2 [employer] Other A1C HEMOGLOBIN [employer] Other HbA1c (Bld) [Mass fraction]o n 07-08-2021 A1C HEMOGLOBIN 6.4 [employer] Other Microalbumin Analyzeron 06-21 Albumin DL <= 20 mg/L (U) [Mass/Vol] 30-300 mg [employer] Other Albumin Test strip detection limit <= 20 mg/L (U) [Mass/Vol] 150 mg [employer] Other Creatinine (U) [Mass/Vol] 100 mg [employer] Other Urinalysis - AUTOMATEDon Appearance (U) cloudy [employer] Other Bilirubin Ql (U) Negative [employer] Other Color (U) yellow [employer] Other Glucose Ql (U) Negative [employer] Other Hemoglobin Ql (U) small [employer] Other Ketones Ql (U) Negative [employer] Other Leukocyte esterase Test strip Ql (U) trace [employer] Other Nitrite Ql (U) Negative [employer] Other pH (U) 7.5 [pH] [employer] Other Protein Ql (U) 30 mg [employer] Other Specific gravity (U) [Rel density] 1.020 [employer] Other Urobilinogen (U) [Mass/Vol] 0.2 mg/dL [employer] Other Urinalysis - AUTOMATED No rth [employer] Other HbA1c (Bld) [Mass fraction]o n 04-09-2021 A1C HEMOGLOBIN 8.0 [employer] Other A1C HEMOGLOBIN [employer] Other HbA1c (Bld) [Mass fraction]o n 11-26-2020 A1C HEMOGLOBIN 7.2 [employer] Other A1C HEMOGLOBIN [employer] Other XR WRIST LT MIN 3 Von 2020 XR WRIST LT MIN 3 V XR WRIST LT MIN 3 V: HISTORY: Pain of left wrist. COMPARISON: None available. TECHNIQUE: 3 radiographic view(s) obtained. FINDINGS: BONES/JOINT SPACES: There is no acute fracture or dislocation. Mild degenerative changes with joint space narrowing at the radiocarpal joint. There are no other significant findings. SOFT TISSUES: Mild to moderate dorsal soft tissue swelling. IMPRESSION: 1. No acute osseous abnormality. 2. Dorsal soft tissue swelling. Electronically authenticated by: DAGOBERTO ESTRELLA Date: 2020-08-13 22:30 Normal [facility] CULTURE BLOODon 05-29-2020 Microscopic examination of blood, culture Culture Observations: S.hominis in aerobic bottle. Culture Observations: No growth in anaerobic bottle at 5 days Isolate 1 Staphylococcus hominis Growth of ORGANISM 1 Staphylococcus hominis ANTIBIOTIC M.I.C RX STATUS Beta-Lactamase Pos POS F Cefoxitin Screen Pos POS F Benzylpenicillin >=0.5 R F Gentamicin <=0.5 S F Ciprofloxacin 4 R F Levofloxacin 4 I F Moxifloxacin 2 S F Inducible Clindamycin Resistance Neg NEG F Erythromycin >=8 R F Clindamycin <=0.25 S F Quinupristin/Dalfopr istin <=0.25 S F Linezolid 2 S F Vancomycin 1 S F Tetracycline <=1 S F Rifampicin <=0.5 S F Trimethoprim/Sulfame thoxazole 80 R F Oxacillin 0.5 R F Normal [facility] Comment on above: Performed By: #### C VDRPD #### [facility] [address] [place], [place] [id number] Olimpia Alesia CULTURE BLOODon 05-26-2020 Microscopic examination of blood, culture Culture Observations: Growth in both aerobic and anaerobic bottles Isolate 1 Escherichia coli Growth of ORGANISM 1 Escherichia coli ANTIBIOTIC M.I.C RX STATUS Ampicillin <=2 S F Ampicillin/Sulbactam <=2 S F Piperacillin/Tazobac vargas <=4 S F Cefazolin <=4 S F Ceftazidime <=1 S F Ceftriaxone <=1 S F Ertapenem <=0.5 S F Imipenem <=0.25 S F Amikacin <=2 S F Gentamicin <=1 S F Tobramycin <=1 S F Ciprofloxacin <=0.25 S F Levofloxacin <=0.12 S F Trimethoprim/Sulfame thoxazole <=20 S F Normal [facility] Comment on above: Performed By: #### C VDRPD #### [facility] [address] [place], [place] [id number] Olimpia Alesia CBC AUTO DIFFon 05-25-2020 BASO # 0.0 103/ul Normal 0.0-0.1 [facility] Comment on above: Performed By: #### C BC #### [facility] [address] [place], [place] [id number] Olimpia Alesia Basophils/100 WBC (Bld) 0.5 % Normal 0.2-2.0 [facility] Comment on above: Performed By: #### C BC #### [facility] [address] [place], [place] [id number] Olimpia Alesia EO # 0.1 103/ul Normal 0.0-0.7 [facility] Comment on above: Performed By: #### C BC #### [facility] [address] [place], [place] [id number] Olimpia Alesia Eosinophils/100 WBC (Bld) 1.5 % Normal 0.9-7.0 [facility] Comment on above: Performed By: #### C BC #### [facility] [address] [place], [place] [id number] Olimpia Alesia Erythrocyte distribution width (RBC) [Ratio] 15.1 % Critically high 11.0-15.0 [facility] Comment on above: Performed By: #### C BC #### [facility] [address] [place] [address] Olimpia Dumas Hematocrit (Bld) [Volume fraction] 26.8 % Critically low 42.0-54.0 [facility] Comment on above: Performed By: #### C BC #### [facility] [address] [place] [address] Olimpia Dumas Hemoglobin (Bld) [Mass/Vol] 8.7 g/dL Critically low 14.0-18.0 [facility] Comment on above: Performed By: #### C BC #### [facility] [address] [place] [address] Olimpia Dumas IG # 0.05 10e3/ul Critically high 0.00-0.03 [facility] Comment on above: Performed By: #### C BC #### [facility] [address] [place] [address] Olimpia Dumas IG % 0.6 % Critically high 0.0-0.5 [facility] Comment on above: Performed By: #### C BC #### [facility] [address] [place] [address] Olimpia Dumas LYMPH # 1.2 103/ul Normal 1.2-3.8 [facility] Comment on above: Performed By: #### C BC #### [facility] [address] [place] [address] Olimpia Dumas Lymphocytes/100 WBC (Bld) 14.9 % Critically low 20.5-60.0 [facility] Comment on above: Performed By: #### C BC #### [facility] [address] [place], [place] [address] Olimpia Dumas MANUAL DIFF REQ NO Normal [facility] Comment on above: Performed By: #### C BC #### [facility] [address] [place] [address] Olimpia Dumas MCH (RBC) [Entitic mass] 34.9 pg Critically high 25.9-34.0 [facility] Comment on above: Performed By: #### C BC #### [facility] [address] [place], [place] [address] Olimpia Dumas MCHC (RBC) [Mass/Vol] 32.5 g/dL Normal 29.9-35.2 [facility] Comment on above: Performed By: #### C BC #### [facility] [address] [place] [address] Olimpia Dumas MCV (RBC) [Entitic vol] 107.6 fL Critically high 80.0-94 .0 [facility] Comment on above: Performed By: #### C BC #### [facility] [address] [place] [address] Olimpia Dumas MONO # 0.6 103/ul Normal 0.3-0.8 [facility] Comment on above: Performed By: #### C BC #### [facility] [address] [place] [address] Olimpia Alesia Monocytes/100 WBC (Bld) 7.7 % Normal 1.7-12.0 [facility] Comment on above: Performed By: #### C BC #### [facility] [address] [place] [address] Olimpia Dumas NEUT # 5.8 103/ul Normal 1.4-6.5 [facility] Comment on above: Performed By: #### C BC #### [facility] [address] [place] [address] Olimpia Alesia Neutrophils/100 WBC (Bld) 74.8 % Normal 43.0-75.0 [facility] Comment on above: Performed By: #### C BC #### [facility] [address] [place], [place] [address] Olimpiayuriy Dumas Platelet mean volume (Bld) [Entitic vol] 11.5 fL Normal 9.5-13.5 [facility] Comment on above: Performed By: #### C BC #### [facility] [address] [place], [place] [address] Olimpia Alesia PLT 126 103/ul Critically low 150-450 [facility] Comment on above: Performed By: #### C BC #### [facility] [address] [place], [place] [address] Olimpia Alesia RBC 2.49 106/ul Critically low 4.70-6.10 [facility] Comment on above: Performed By: #### C BC #### [facility] [address] [place] [id number] Olimpia Alesia WBC 7.8 103/ul Normal 4.0-11.0 [facility] Comment on above: Performed By: #### C BC #### [facility] [address] [place] [id number] Olimpia Dumas POINT OF CARE GLUCOSEon Glucose [Mass/Vol] 117 mg/dL Critically high 74-106 [facility] Comment on above: Performed By: #### P OCGLUC #### [facility] [address] [place] [id number] Olimpia Alesia PROF CHEM 8 (BAS METB)on Anion gap [Moles/Vol] 14.1 mmol/L Normal [facility] Comment on above: Performed By: #### B MP #### [facility] [address] [place], [place] [address] Olimpia Alesia Calcium [Mass/Vol] 8.1 mg/dL Critically low 8.4-10.2 [facility] Comment on above: Performed By: #### B MP #### [facility] [address] [place] [id number] Olimpia Alesia Chloride [Moles/Vol] 105 mmol/L Normal 98-107 [facility] Comment on above: Performed By: #### B MP #### [facility] [address] [place] [id number] Olimpia Alesia CO2 [Moles/Vol] 25.5 mmol/L Normal 22.0-30.0 [facility] Comment on above: Performed By: #### B MP #### [facility] [address] [place], [place] [address] Olimpia Alesia Creatinine [Mass/Vol] 1.24 mg/dL Normal 0.66-1.25 [facility] Comment on above: Performed By: #### B MP #### [facility] [address] [place], [place] [address] Olimpia Alesia EGFR-AF HUNGARIAN >60 Normal >=60 [facility] Comment on above: Performed By: #### B MP #### [facility] [address] [place], [place] [address] Olimpia Alesia EGFR-NON AF HUNGARIAN 57 mL/min/1.73m2 Critically low >=60 [facility] Comment on above: Performed By: #### B MP #### [facility] [address] [place] [id number] Olimpia Alesia Glucose [Mass/Vol] 109 mg/dL Critically high 74-106 [facility] Comment on above: Performed By: #### B MP #### [facility] [address] [place] [address] Olimpia Alesia Potassium [Moles/Vol] 3.6 mmol/L Normal 3.4-5.0 [facility] Comment on above: Performed By: #### B MP #### [facility] [address] [place] [id number] Olimpia Alesia Sodium [Moles/Vol] 141 mmol/L Normal 137-145 [facility] Comment on above: Performed By: #### B MP #### [facility] [address] [place] [id number] Olimpia Alesia Urea nitrogen [Mass/Vol] 9.0 mg/dL Normal 9.0-20.0 [facility] Comment on above: Performed By: #### B MP #### [facility] [address] [place] [id number] Olimpia Alesia Urea nitrogen/Creatinine [Mass ratio] 7.3 mg/mg Normal [facility] Comment on above: Performed By: #### B MP #### [facility] [address] [place] [id number] Olimpia Alesia BLOOD CULTURE ID PANELon A. baumannii Not detected Normal [facility] Comment on above: Performed By: #### I NFLUAB #### [facility] [address] [place] [id number] Olimpia Dumas BCID CONTROLS PASSED Normal [facility] Comment on above: Performed By: #### I NFLUAB #### [facility] [address] [place] [id number] Olimpia Dumas BCIDBTHD BLOOD CULTURE BOTTLE INFORMATION Normal [facility] Comment on above: Performed By: #### I NFLUAB #### [facility] [address] [place] [address] Olimpia Dumas BCIDHD1 ANTIMICROBIAL RESISTANCE GENES [facility] Comment on above: Performed By: #### I NFLUAB #### [facility] [address] [place] [address] Olimpia Dumas BCIDHD2 SEE BELOW [facility] Comment on above: Result Comment: KPC- carbapenem resistance gene, mecA- methecillin resistance gene, van A/B- vancomycin resistance gene Note: Antimicrobial resitance can occur via multiple mechanisms. A Not Detected result for the [employer] antomicrobial resistance gene assays does not indicate antimicrobial susceptibility. Subculturing is required for specis identificationand susceptibility testing of isolates. Performed By: #### I NFLUAB #### [facility] [address] [place] [address] Olimpiayuriy Dumas BCIDHD3 Positive [facility] Comment on above: Performed By: #### I NFLUAB #### [facility] [address] [place] [address] Olimpiayuriy Dumas BCIDHD4 Negative [facility] Comment on above: Performed By: #### I NFLUAB #### [facility] [address] [place] [address] Olimpiayuriy Dumas BCIDHD5 YEAST Normal [facility] Comment on above: Performed By: #### I NFLUAB #### [facility] [address] [place] [address] Olimpiayuriy Olsenen BCIDHD6 SEE BELOW [facility] Comment on above: Result Comment: Note : All genus and species BCID [employer] results will be verified post subculturing via Maldi-Tof MS testing methodology. Performed By: #### I NFLUAB #### [facility] [address] [place] [address] Olimpia Alesia Bottle Set: Set 1 Normal [facility] Comment on above: Performed By: #### I NFLUAB #### [facility] [address] [place] [address] Olimpia Alesia Bottle: Anaerobic Normal [facility] Comment on above: Performed By: #### I NFLUAB #### [facility] [address] [place] [address] Olimpia Alesia Sharonda albicans Not detected Normal [facility] Comment on above: Performed By: #### I NFLUAB #### [facility] [address] [place] [address] Olimpia Alesia Sharonda glabrata Not detected Normal [facility] Comment on above: Performed By: #### I NFLUAB #### [facility] [address] [place] [address] Olimpia Alesia Sharonda Krusei Not detected Normal [facility] Comment on above: Performed By: #### I NFLUAB #### [facility] [address] [place] [address] Olimpia Alesia Sharonda Parapsilosis Not detected Normal [facility] Comment on above: Performed By: #### I NFLUAB #### [facility] [address] [place] [address] Olimpia Alesia Sharonda Tropicalis Not detected Normal [facility] Comment on above: Performed By: #### I NFLUAB #### [facility] [address] [place] [address] Olimpia Laesia E. Cloacae complex Not detected Normal [facility] Comment on above: Performed By: #### I NFLUAB #### [facility] [address] [place] [address] Olimpia Alesia Enterobacteriaceae Detected Invalid Interpretation Code [facility] Comment on above: Performed By: #### I NFLUAB #### [facility] [address] [place] [address] Olimpia Alesia Enterococcus Not detected Normal [facility] Comment on above: Performed By: #### I NFLUAB #### [facility] [address] [place] [address] Olimpia Alesia Escheria coli Detected Invalid Interpretation Code [facility] Comment on above: Performed By: #### I NFLUAB #### [facility] [address] [place] [address] Olimpia Alesia K. oxytoca Not detected Normal [facility] Comment on above: Performed By: #### I NFLUAB #### [facility] [address] [place] [address] Olimpia Alesia K. pneumoniae Not detected Normal [facility] Comment on above: Performed By: #### I NFLUAB #### [facility] [address] [place] [address] Olimpia Alesia KPC Resistant Gene Not detected Normal [facility] Comment on above: Performed By: #### I NFLUAB #### [facility] [address] [place] [address] Olimpia Alesia List. monocytogenes Not detected Normal [facility] Comment on above: Performed By: #### I NFLUAB #### [facility] [address] [place] [address] Olimpia Alesia mecA Resistant Gene Not detected Normal [facility] Comment on above: Performed By: #### I NFLUAB #### [facility] [address] [place] [address] Olimpia Alesia Proteus Not detected Normal [facility] Comment on above: Performed By: #### I NFLUAB #### [facility] [address] [place] [address] Olimpia Alesia Pseud. aeruginosa Not detected Normal [facility] Comment on above: Performed By: #### I NFLUAB #### [facility] [address] [place] [address] Olimpia Alesia Seratia marcescens Not detected Normal [facility] Comment on above: Performed By: #### I NFLUAB #### [facility] [address] [place] [address] Olimpia Dumas Site: R ARM Normal [facility] Comment on above: Performed By: #### I NFLUAB #### [facility] [address] [place] [address] Olimpia Dumas Staph. aureus Not detected Normal [facility] Comment on above: Performed By: #### I NFLUAB #### [facility] [address] [place] [address] Olimpia Dumas Staphylococcus Not detected Normal [facility] Comment on above: Performed By: #### I NFLUAB #### [facility] [address] [place] [address] Olimpia Dumas Strep. agalactiae Not detected Normal [facility] Comment on above: Performed By: #### I NFLUAB #### [facility] [address] [place] [address] Olimpia Dumas Strep. pneumoniae Not detected Normal [facility] Comment on above: Performed By: #### I NFLUAB #### [facility] [facility] [address] [place] [address] Olimpia Dumas Strep. pyogenes Not detected Normal [facility] Comment on above: Performed By: #### I NFLUAB #### [facility] [address] [place] [address] Olimpia Dumas Streptococcus Not detected Normal [facility] Comment on above: Performed By: #### I NFLUAB #### [facility] [address] [place] [address] Olimpia Dumas Ysabel/B Resist. Gene Not detected Normal [facility] Comment on above: Performed By: #### I NFLUAB #### [facility] [address] [place] [address] Olimpia Dumas BLOOD CULTURE ID PANEL SUBSE Nuha 05-24-2020 A. baumannii Not detected Normal [facility] Comment on above: Performed By: #### B CIDSUB #### [facility] [address] [place] [address] Olimpia Dumas BCID CONTROLS PASSED Normal [facility] Comment on above: Performed By: #### B CIDSUB #### [facility] [address] [place] [address] Olimpiayuriy Dumas BCIDBTHD BLOOD CULTURE BOTTLE INFORMATION [facility] Comment on above: Performed By: #### B CIDSUB #### [facility] [address] [place], [place] [id number] Olimpia Alesia BCIDHD1 ANTIMICROBIAL RESISTANCE GENES [facility] Comment on above: Performed By: #### B CIDSUB #### [facility] [address] [place] [address] Olimpia Alesia BCIDHD2 SEE BELOW [facility] Comment on above: Result Comment: KPC- carbapenem resistance gene, mecA- methecillin resistance gene, van A/B- vancomycin resistance gene Note: Antimicrobial resitance can occur via multiple mechanisms. A Not Detected result for the FilmArray antomicrobial resistance gene assays does not indicate antimicrobial susceptibility. Subculturing is required for specis identificationand susceptibility testing of isolates. Performed By: #### B CIDSUB #### [facility] [address] [place] [address] Olimpia Alesia BCIDHD3 Positive [facility] Comment on above: Performed By: #### B CIDSUB #### [facility] [address] [place] [address] Olimpia Alesia BCIDHD4 Negative [facility] Comment on above: Performed By: #### B CIDSUB #### [facility] [address] [place] [address] Olimpia Alesia BCIDHD5 YEAST [facility] Comment on above: Performed By: #### B CIDSUB #### [facility] [address] [place] [address] Olimpia Alesia BCIDHD6 SEE BELOW [facility] Comment on above: Result Comment: Note : All genus and species BCID FilmArray results will be verified post subculturing via Maldi-Tof MS testing methodology. Performed By: #### B CIDSUB #### [facility] [address] [place] [address] Olimpia Alesia Bottle Set: Set 2 [facility] Comment on above: Performed By: #### B CIDSUB #### [facility] [address] [address] Olimpia Alesia Bottle: Aerobic Normal [facility] Comment on above: Performed By: #### B CIDSUB #### [facility] [address] [address] Olimpia Alesia Sharonda albicans Not detected Normal [facility] Comment on above: Performed By: #### B CIDSUB #### [facility] [address] [address] Olimpia Alesia Sharonda glabrata Not detected Normal [facility] Comment on above: Performed By: #### B CIDSUB #### [facility] [address] [address] Olimpia Alesia Sharonda Krusei Not detected Normal [facility] Comment on above: Performed By: #### B CIDSUB #### [facility] [address] [place] [address] Olimpia Alesia Sharonda Parapsilosis Not detected Normal [facility] Comment on above: Performed By: #### B CIDSUB #### [facility] [address] [address] Olimpia Alesia Sharonda Tropicalis Not detected Normal [facility] Comment on above: Performed By: #### B CIDSUB #### [facility] [address] [place] [address] Olimpia Alesia E. Cloacae complex Not detected Normal [facility] Comment on above: Performed By: #### B CIDSUB #### [facility] [address] [address] Olimpia Alesia Enterobacteriaceae Not detected Normal [facility] Comment on above: Performed By: #### B CIDSUB #### [facility] [address] [address] Olimpia Alesia Enterococcus Not detected Normal [facility] Comment on above: Performed By: #### B CIDSUB #### [facility] [address] [address] Olimpia Alesia Escheria coli Not detected Normal [facility] Comment on above: Performed By: #### B CIDSUB #### [facility] [address] [address] Olimpiayuriy Dumas K. oxytoca Not detected Normal [facility] Comment on above: Performed By: #### B CIDSUB #### [facility] [address] [address] Olimpia Alesia K. pneumoniae Not detected Normal [facility] Comment on above: Performed By: #### B CIDSUB #### [facility] [address] [address] Olimpiayuriy Dumas KPC Resistant Gene Not detected Normal [facility] Comment on above: Performed By: #### B CIDSUB #### [facility] [address] [address] Olimpia Alesia List. monocytogenes Not detected Normal [facility] Comment on above: Performed By: #### B CIDSUB #### [facility] [address] [place] [address] Olimpiayuriy Dumas mecA Resistant Gene Detected Invalid Interpretation Code [facility] Comment on above: Performed By: #### B CIDSUB #### [facility] [address] [place] [address] Olimpia Alesia Proteus Not detected Normal [facility] Comment on above: Performed By: #### B CIDSUB #### [facility] [address] [place] [address] Olimpiayuriy Dumas Pseud. aeruginosa Not detected Normal [facility] Comment on above: Performed By: #### B CIDSUB #### [facility] [address] [place] [address] Olimpia Alesia Seratia marcescens Not detected Normal [facility] Comment on above: Performed By: #### B CIDSUB #### [facility] [address] [address] Olimpia Alesia Site: left ac Normal [facility] Comment on above: Performed By: #### B CIDSUB #### [facility] [address] [place] [address] Olimpia Alesia Staph. aureus Not detected Normal [facility] Comment on above: Performed By: #### B CIDSUB #### [facility] [address] [address] Olimpia Alesia Staphylococcus Detected Invalid Interpretation Code [facility] Comment on above: Performed By: #### B CIDSUB #### [facility] [address] [address] Olimpia Alesia Strep. agalactiae Not detected Normal [facility] Comment on above: Performed By: #### B CIDSUB #### [facility] [address] [address] Olimpia Alesia Strep. pneumoniae Not detected Normal [facility] Comment on above: Performed By: #### B CIDSUB #### [facility] [address] [place] [address] Olimpia Alesia Strep. pyogenes Not detected Normal [facility] Comment on above: Performed By: #### B CIDSUB #### [facility] [address] [place] [address] Olimpia Alesia Streptococcus Not detected Normal [facility] Comment on above: Performed By: #### B CIDSUB #### [facility] [address] [place] [address] Olimpia Alesia Ysabel/B Resist. Gene Not detected Normal [facility] Comment on above: Performed By: #### B CIDSUB #### [facility] [address] [place] [address] Olimpia Alesia A. baumannii Not detected Normal [facility] Comment on above: Performed By: #### C VDRPD #### [facility] [address] [place] [address] Olimpia Alesia BCID CONTROLS PASSED Normal [facility] Comment on above: Performed By: #### C VDRPD #### [facility] [address] [place] [address] Olimpia Dumas BCIDBTHD BLOOD CULTURE BOTTLE INFORMATION Normal [facility] Comment on above: Performed By: #### C VDRPD #### [facility] [address] [place] [address] Olimpia Dumas BCIDHD1 ANTIMICROBIAL RESISTANCE GENES Normal [facility] Comment on above: Performed By: #### C VDRPD #### [facility] [address] [place] [address] Olimpia Alesia BCIDHD2 SEE BELOW [facility] Comment on above: Result Comment: KPC- carbapenem resistance gene, mecA- methecillin resistance gene, van A/B- vancomycin resistance gene Note: Antimicrobial resitance can occur via multiple mechanisms. A Not Detected result for the FilmArray antomicrobial resistance gene assays does not indicate antimicrobial susceptibility. Subculturing is required for specis identificationand susceptibility testing of isolates. Performed By: #### C VDRPD #### [facility] [address] [place] [address] Olimpia Alesia BCIDHD3 Positive [facility] Comment on above: Performed By: #### C VDRPD #### [facility] [address] [place] [address] Olimpia Alesia BCIDHD4 Negative [facility] Comment on above: Performed By: #### C VDRPD #### [facility] [address] [place] [address] Olimpia Alesia BCIDHD5 YEAST Normal [facility] Comment on above: Performed By: #### C VDRPD #### [facility] [address] [place] [address] Olimpia Alesia BCIDHD6 SEE BELOW [facility] Comment on above: Result Comment: Note : All genus and species BCID FilmArray results will be verified post subculturing via Maldi-Tof MS testing methodology. Performed By: #### C VDRPD #### [facility] [address] [place] [address] Olimpia Alesia Bottle Set: Set 1 [facility] Comment on above: Performed By: #### C VDRPD #### [facility] [address] [place] [address] Olimpia Alesia Bottle: Aerobic [facility] Comment on above: Performed By: #### C VDRPD #### [facility] [address] [place] [address] Olimpia Alesia Sharonda albicans Not detected Normal [facility] Comment on above: Performed By: #### C VDRPD #### [facility] [address] [address] Olimpia Alesia Sharonda glabrata Not detected Normal [facility] Comment on above: Performed By: #### C VDRPD #### [facility] [address] [address] Olimpia Alesia Sharonda Krusei Not detected Normal [facility] Comment on above: Performed By: #### C VDRPD #### [facility] [address] [address] Olimpia Alesia Sharonda Parapsilosis Not detected Normal [facility] Comment on above: Performed By: #### C VDRPD #### [facility] [address] [address] Olimpia Alesia Sharonda Tropicalis Not detected Normal [facility] Comment on above: Performed By: #### C VDRPD #### [facility] [address] [place] [address] Olimpia Alesia E. Cloacae complex Not detected Normal [facility] Comment on above: Performed By: #### C VDRPD #### [facility] [address] [address] Olimpia Alesia Enterobacteriaceae Detected Invalid Interpretation Code [facility] Comment on above: Performed By: #### C VDRPD #### [facility] [address] [place] [address] Olimpia Alesia Enterococcus Not detected Normal [facility] Comment on above: Performed By: #### C VDRPD #### [facility] [address] [address] Olimpia Alesia Escheria coli Detected Invalid Interpretation Code [facility] Comment on above: Performed By: #### C VDRPD #### [facility] [address] [address] Olimpia Alesia K. oxytoca Not detected Normal [facility] Comment on above: Performed By: #### C VDRPD #### [facility] [address] [address] Olimpia Alesia K. pneumoniae Not detected Normal [facility] Comment on above: Performed By: #### C VDRPD #### [facility] [address] [place] [address] Olimpia Alesia KPC Resistant Gene Not detected Normal [facility] Comment on above: Performed By: #### C VDRPD #### [facility] [address] [address] Olimpia Alesia List. monocytogenes Not detected Normal [facility] Comment on above: Performed By: #### C VDRPD #### [facility] [address] [place] [address] Olimpia Alesia mecA Resistant Gene Not detected Normal [facility] Comment on above: Performed By: #### C VDRPD #### [facility] [address] [place] [address] Olimpia Alesia Proteus Not detected Normal [facility] Comment on above: Performed By: #### C VDRPD #### [facility] [address] [place] [address] Olimpia Alesia Pseud. aeruginosa Not detected Normal [facility] Comment on above: Performed By: #### C VDRPD #### [facility] [address] [place] [address] Olimpia Alesia Seratia marcescens Not detected Normal [facility] Comment on above: Performed By: #### C VDRPD #### [facility] [address] [place] [address] Olimpia Dumas Site: R ARM Normal [facility] Comment on above: Performed By: #### C VDRPD #### [facility] [address] [place] [address] Olimpiayuriy Dumas Staph. aureus Not detected Normal [facility] Comment on above: Performed By: #### C VDRPD #### [facility] [address] [place] [address] Olimpia Alesia Staphylococcus Not detected Normal [facility] Comment on above: Performed By: #### C VDRPD #### [facility] [address] [place] [address] Olimpia Alesia Strep. agalactiae Not detected Normal [facility] Comment on above: Performed By: #### C VDRPD #### [facility] [address] [place] [address] Olimpia Alesia Strep. pneumoniae Not detected Normal [facility] Comment on above: Performed By: #### C VDRPD #### [facility] [address] [place] [address] Olimpia Alesia Strep. pyogenes Not detected Normal [facility] Comment on above: Performed By: #### C VDRPD #### [facility] [address] [place] [address] Olimpia Alesia Streptococcus Not detected Normal [facility] Comment on above: Performed By: #### C VDRPD #### [facility] [address] [place] [address] Olimpiayuriy Dumas Ysabel/B Resist. Gene Not detected Normal [facility] Comment on above: Performed By: #### C VDRPD #### [facility] [address] [place] [address] Olimpia Alesia BNPon 05-24-2020 Natriuretic peptide B (Bld) [Mass/Vol] 175.0 pg/mL Normal <=900.0 [facility] Comment on above: Performed By: #### H STROPN, BNP, CMP #### [facility] [address] [place] [address] Olimpia Alesia CBC AUTO DIFFon 05-24-2020 BASO # 0.1 103/ul Normal 0.0-0.1 [facility] Comment on above: Performed By: #### C BC #### [facility] [address] [place] [address] Olimpia Alesia Basophils/100 WBC (Bld) 0.3 % Normal 0.2-2.0 [facility] Comment on above: Performed By: #### C BC #### [facility] [address] [place] [address] Olimpia Alesia EO # 0.0 103/ul Normal 0.0-0.7 [facility] Comment on above: Performed By: #### C BC #### [facility] [address] [place] [address] Olimpia Alesia Eosinophils/100 WBC (Bld) 0.2 % Critically low 0.9-7.0 [facility] Comment on above: Performed By: #### C BC #### [facility] [address] [place] [address] Olimpia Dumas Erythrocyte distribution width (RBC) [Ratio] 14.6 % Normal 11.0-15.0 [facility] Comment on above: Performed By: #### C BC #### [facility] [address] [place] [address] Olimpia Dumas Hematocrit (Bld) [Volume fraction] 28.0 % Critically low 42.0-54.0 [facility] Comment on above: Performed By: #### C BC #### [facility] [address] [place] [address] Olimpia Dumas Hemoglobin (Bld) [Mass/Vol] 9.2 g/dL Critically low 14.0-18.0 [facility] Comment on above: Performed By: #### C BC #### [facility] [address] [place] [address] Olimpiayuriy Dumas IG # 0.12 10e3/ul Critically high 0.00-0.03 [facility] Comment on above: Performed By: #### C BC #### [facility] [address] [place] [address] Olimpia Dumas IG % 0.7 % Critically high 0.0-0.5 [facility] Comment on above: Performed By: #### C BC #### [facility] [address] [place] [address] Olimpia Dumas LYMPH # 3.1 103/ul Normal 1.2-3.8 [facility] Comment on above: Performed By: #### C BC #### [facility] [address] [place], [place] [id number] Olimpia Dumas Lymphocytes/100 WBC (Bld) 17.9 % Critically low 20.5-60.0 [facility] Comment on above: Performed By: #### C BC #### [facility] [address] [place], [place] [address] Olimpia Dumas MANUAL DIFF REQ NO Normal [facility] Comment on above: Performed By: #### C BC #### [facility] [address] [place], [place] [address] Olimpia Dumas MCH (RBC) [Entitic mass] 34.7 pg Critically high 25.9-34.0 [facility] Comment on above: Performed By: #### C BC #### [facility] [address] [id number] Olimpia Dumas MCHC (RBC) [Mass/Vol] 32.9 g/dL Normal 29.9-35.2 [facility] Comment on above: Performed By: #### C BC #### [facility] [address] [id number] Olimpia Dumas MCV (RBC) [Entitic vol] 105.7 fL Critically high 80.0-94 .0 [facility] Comment on above: Result Comment: macr ocytosis3+ hypochromic2+ Performed By: #### C BC #### [facility] [address] [place] [address] Olimpia Dumas MONO # 0.9 103/ul Critically high 0.3-0.8 [facility] Comment on above: Performed By: #### C BC #### [facility] [address] [place], [place] [id number] Olimpia Dumas Monocytes/100 WBC (Bld) 4.9 % Normal 1.7-12.0 [facility] Comment on above: Performed By: #### C BC #### [facility] [address] [place], [place] [address] Olimpiayuriy Dumas NEUT # 13.3 103/ul Critically high 1.4-6.5 [facility] Comment on above: Performed By: #### C BC #### [facility] [address] [place], [place] [address] Olimpia Dumas Neutrophils/100 WBC (Bld) 76.0 % Critically high 43.0-75.0 [facility] Comment on above: Performed By: #### C BC #### [facility] [address] [place], [place] [id number] Olimpiayuriy Dumas Platelet mean volume (Bld) [Entitic vol] 12.1 fL Normal 9.5-13.5 [facility] Comment on above: Performed By: #### C BC #### [facility] [address] [place], [place] [address] Olimpia Alesia PLT 136 103/ul Critically low 150-450 [facility] Comment on above: Performed By: #### C BC #### [facility] [address] [place], [place] [address] Olimpia Alesia RBC 2.65 106/ul Critically low 4.70-6.10 [facility] Comment on above: Performed By: #### C BC #### [facility] [address] [place], [place] [address] Olimpia Alesia WBC 17.5 103/ul Critically high 4.0-11.0 [facility] Comment on above: Performed By: #### C BC #### [facility] [address] [place], [place] [address] Olimpia Alesia BASO # 0.1 103/ul Normal 0.0-0.1 [facility] Comment on above: Performed By: #### I NFLUAB #### [facility] [address] [place] [address] Olimpia Alesia Basophils/100 WBC (Bld) 0.4 % Normal 0.2-2.0 [facility] Comment on above: Performed By: #### I NFLUAB #### [facility] [address] [place], [place] [address] Olimpia Alesia EO # 0.1 103/ul Normal 0.0-0.7 [facility] Comment on above: Performed By: #### I NFLUAB #### [facility] [address] [place], [place] [address] Olimpia Alesia Eosinophils/100 WBC (Bld) 0.7 % Critically low 0.9-7.0 [facility] Comment on above: Performed By: #### I NFLUAB #### [facility] [address] [place], [place] [address] Olimpia Alesia Erythrocyte distribution width (RBC) [Ratio] 14.7 % Normal 11.0-15.0 [facility] Comment on above: Performed By: #### I NFLUAB #### [facility] [address] [address] Olimpia Dumas Hematocrit (Bld) [Volume fraction] 32.2 % Critically low 42.0-54.0 [facility] Comment on above: Performed By: #### I NFLUAB #### [facility] [address] [address] Olimipa Dumas Hemoglobin (Bld) [Mass/Vol] 10.5 g/dL Critically low 14.0-18.0 [facility] Comment on above: Performed By: #### I NFLUAB #### [facility] [address] [place] [address] Olimpia Dumas IG # 0.08 10e3/ul Critically high 0.00-0.03 [facility] Comment on above: Performed By: #### I NFLUAB #### [facility] [address] [place] [address] Olimpia Dumas IG % 0.7 % Critically high 0.0-0.5 [facility] Comment on above: Performed By: #### I NFLUAB #### [facility] [address] [place] [address] Olimpia Dumas LYMPH # 0.8 103/ul Critically low 1.2-3.8 [facility] Comment on above: Performed By: #### I NFLUAB #### [facility] [address] [place] [address] Olimpia Dumas Lymphocytes/100 WBC (Bld) 7.2 % Critically low 20.5-60.0 [facility] Comment on above: Performed By: #### I NFLUAB #### [facility] [address] [place] [address] Olimpia Dumas MANUAL DIFF REQ NO Normal [facility] Comment on above: Performed By: #### I NFLUAB #### [facility] [address] [place] [address] Olimpia Dumas MCH (RBC) [Entitic mass] 34.9 pg Critically high 25.9-34.0 [facility] Comment on above: Performed By: #### I NFLUAB #### [facility] [address] [place] [address] Olimpia Dumas MCHC (RBC) [Mass/Vol] 32.6 g/dL Normal 29.9-35.2 [facility] Comment on above: Performed By: #### I NFLUAB #### [facility] [address] [place] [address] Olimpia Dumas MCV (RBC) [Entitic vol] 107.0 fL Critically high 80.0-94 .0 [facility] Comment on above: Result Comment: hypo chromia 2+ macrocytosis 3+ Performed By: #### I NFLUAB #### [facility] [address] [place] [address] Olimpia Dumas MONO # 0.3 103/ul Normal 0.3-0.8 [facility] Comment on above: Performed By: #### I NFLUAB #### [facility] [address] [place] [address] Olimpia Dumas Monocytes/100 WBC (Bld) 2.7 % Normal 1.7-12.0 [facility] Comment on above: Performed By: #### I NFLUAB #### [facility] [address] [place] [address] Olimpia Dumas NEUT # 10.2 103/ul Critically high 1.4-6.5 [facility] Comment on above: Performed By: #### I NFLUAB #### [facility] [address] [place] [address] Olimpia Dumas Neutrophils/100 WBC (Bld) 88.3 % Critically high 43.0-75.0 [facility] Comment on above: Performed By: #### I NFLUAB #### [facility] [address] [place] [address] Olimpia Dumas Platelet mean volume (Bld) [Entitic vol] 11.6 fL Normal 9.5-13.5 [facility] Comment on above: Performed By: #### I NFLUAB #### [facility] [address] [place] [address] Olimpia Dumas PLT 172 103/ul Normal 150-450 [facility] Comment on above: Performed By: #### I NFLUAB #### [facility] [address] [place], [place] [address] Olimpia Dumas RBC 3.01 106/ul Critically low 4.70-6.10 [facility] Comment on above: Performed By: #### I NFLUAB #### [facility] [address] [place], [place] [address] Olimpia Dumas WBC 11.5 103/ul Critically high 4.0-11.0 [facility] Comment on above: Performed By: #### I NFLUAB #### [facility] [address] [place], [place] [address] Olimpia Dumas CTA CHEST WO W CONon 021 CTA CHEST WO W CON EXAMINATION: CTA CHEST WO W CON HISTORY: CHEST PAIN, UNSPECIFIED. COMPARISON: Chest radiograph today at 10:20 PM TECHNIQUE: CT angiography of the pulmonary arteries following the administration of 100 mL of Omnipaque 350 intravenous contrast. Coronal and sagittal MIP (maximum intensity projection) images were performed. Dose reduction techniques were achieved by using automated exposure control and/or adjustment of mA and/or kV according to patient size and/or use of iterative reconstruction technique. FINDINGS: There is adequate opacification of the pulmonary arteries. No filling defects. No axillary or mediastinal thoracic lymphadenopathy. Heart is enlarged. Aorta is normal caliber. Prior median sternotomy and CABG. Lung volumes are low with elevation of the left hemidiaphragm in the setting of obesity. Mild diffuse bronchial wall thickening and bibasilar atelectasis. No consolidation or effusion. No acute findings in the upper abdomen to extent of limited visualization. Adrenal glands are partially imaged. Liver has a nodular surface contour with fatty infiltration. IMPRESSION: 1. No evidence of pulmonary embolism. 2. Cardiomegaly and atherosclerosis. 3. Low lung volumes and bronchial wall thickening could reflect airway inflammation. Artifact related to expiratory phase in the setting of obesity is also on the differential. 4. Cirrhosis and fatty liver. Electronically authenticated by: CAT WEST Date: 2020-05-24 01:04 Normal [facility] INFLUENZA A AND B AGon 05-24 INFLUANEGH SEE BELOW Normal [facility] Comment on above: Result Comment: Nega tive for Flu A protein angiten. Infection due to Flu A cannot be ruled out. Flu A angiten in the sample may be below the detection limit of the test. Performed By: #### I NFLUAB #### [facility] [address] [place] [address] Olimpia Dumas INFLUBNEGH SEE BELOW Normal [facility] Comment on above: Result Comment: Nega tive for Flu B protein antigen. Infection due to Flu B cannot be ruled out. Flu B antigen in the sample may be below the detection limit of the test. Performed By: #### I NFLUAB #### [facility] [address] [place] [address] Olimpiayuriy Dumas INFLUENZA A AG Negative Normal NEGATIVE SEE COMMENT [facility] Comment on above: Performed By: #### I NFLUAB #### [facility] [address] [place] [address] Olimpia Alesia INFLUENZA B AG Negative Normal NEGATIVE SEE COMMENT [facility] Comment on above: Performed By: #### I NFLUAB #### [facility] [address] [place] [address] Olimpia Dumas INTERNAL CONTROLS Within Normal Limits Normal Wi thin Normal Limits [facility] Comment on above: Performed By: #### I NFLUAB #### [facility] [address] [place] [address] Olimpia Dumas LACTATE/LACTIC ACIDon 2020 Lactate [Moles/Vol] 1.1 mmol/L Normal 0.7-2.0 [facility] Comment on above: Performed By: #### C VDRPD #### [facility] [address] [place] [address] Olimpia Alesia Lactate [Moles/Vol] 2.9 mmol/L Critically high 0.7-2.0 [facility] Comment on above: Result Comment: test repeated critical value verified Performed By: #### I NFLUAB #### [facility] [address] [place] [address] Olimpia Dumas PROF 14(COMP METB)on 021 Albumin [Mass/Vol] 2.8 g/dL Critically low 3.5-5.0 [facility] Comment on above: Performed By: #### H STROPN, BNP, CMP #### [facility] [address] [place] [id number] Olimpia Alesia Albumin/Globulin [Mass ratio] 0.5 {ratio} Normal [facility] Comment on above: Performed By: #### H STROPN, BNP, CMP #### [facility] [address] [place] [address] Olimpia Alesia ALP [Catalytic activity/Vol] 111 U/L Normal 38-126 [facility] Comment on above: Performed By: #### H STROPN, BNP, CMP #### [facility] [address] [place] [address] Olimpia Alesia ALT [Catalytic activity/Vol] 11 U/L Critically low 21-72 [facility] Comment on above: Performed By: #### H STROPN, BNP, CMP #### [facility] [address] [place] [address] Olimpia Alesia Anion gap [Moles/Vol] 11.6 mmol/L Normal [facility] Comment on above: Performed By: #### H STROPN, BNP, CMP #### [facility] [address] [place] [address] Olimpia Alesia AST [Catalytic activity/Vol] 16 U/L Critically low 17-59 [facility] Comment on above: Performed By: #### H STROPN, BNP, CMP #### [facility] [address] [place] [address] Olimpia Alesia Bilirubin [Mass/Vol] 0.4 mg/dL Normal 0.2-1.3 [facility] Comment on above: Performed By: #### H STROPN, BNP, CMP #### [facility] [address] [place] [address] Olimpia Alesia Calcium [Mass/Vol] 9.1 mg/dL Normal 8.4-10.2 [facility] Comment on above: Performed By: #### H STROPN, BNP, CMP #### [facility] [address] [place] [address] Olimpia Alesia Chloride [Moles/Vol] 100 mmol/L Normal 98-107 [facility] Comment on above: Performed By: #### H STROPN, BNP, CMP #### [facility] [address] [place] [address] Olimpia Alesia CO2 [Moles/Vol] 27.5 mmol/L Normal 22.0-30.0 [facility] Comment on above: Performed By: #### H STROPN, BNP, CMP #### [facility] [address] [place] [address] Olimpia Alesia Creatinine [Mass/Vol] 1.36 mg/dL Critically high 0.66-1.25 [facility] Comment on above: Performed By: #### H STROPN, BNP, CMP #### [facility] [address] [place] [address] Olimpia Alesia EGFR-AF HUNGARIAN >60 Normal >=60 [facility] Comment on above: Performed By: #### H STROPN, BNP, CMP #### [facility] [address] [place] [address] Olimpia Alesia EGFR-NON AF HUNGARIAN 52 mL/min/1.73m2 Critically low >=60 [facility] Comment on above: Performed By: #### H STROPN, BNP, CMP #### [facility] [address] [place] [address] Olimpia Alesia Globulin (S) [Mass/Vol] 5.5 g/dL Normal [facility] Comment on above: Performed By: #### H STROPN, BNP, CMP #### [facility] [address] [place] [address] Olimpia Alesia Glucose [Mass/Vol] 197 mg/dL Critically high 74-106 [facility] Comment on above: Performed By: #### H STROPN, BNP, CMP #### [facility] [address] [place] [address] Olimpia Alesia Potassium [Moles/Vol] 4.1 mmol/L Normal 3.4-5.0 [facility] Comment on above: Performed By: #### H STROPN, BNP, CMP #### [facility] [address] [place] [id number] Olimpia Alesia Protein [Mass/Vol] 8.3 g/dL Critically high 6.1-8.2 [facility] Comment on above: Performed By: #### H STROPN, BNP, CMP #### [facility] [address] [place], [place] [id number] Olimpia Alesia Sodium [Moles/Vol] 135 mmol/L Critically low 137-145 [facility] Comment on above: Performed By: #### H STROPN, BNP, CMP #### [facility] [address] [place] [address] Olimpia Alesia Urea nitrogen [Mass/Vol] 9.0 mg/dL Normal 9.0-20.0 [facility] Comment on above: Performed By: #### H STROPN, BNP, CMP #### [facility] [address] [place] [address] Olimpia Alesia Urea nitrogen/Creatinine [Mass ratio] 6.6 mg/mg Normal [facility] Comment on above: Performed By: #### H STROPN, BNP, CMP #### [facility] [address] [place], [place] [id number] Olimpia Alesia PROF CHEM 8 (BAS METB)on Anion gap [Moles/Vol] 10.7 mmol/L Normal [facility] Comment on above: Performed By: #### I NFLUAB #### [facility] [address] [place] [address] Olimpia Alesia Calcium [Mass/Vol] 8.4 mg/dL Normal 8.4-10.2 [facility] Comment on above: Performed By: #### I NFLUAB #### [facility] [address] [place] [address] Olimpia Alesia Chloride [Moles/Vol] 104 mmol/L Normal 98-107 [facility] Comment on above: Performed By: #### I NFLUAB #### [facility] [address] [place] [address] Olimpia Alesia CO2 [Moles/Vol] 27.6 mmol/L Normal 22.0-30.0 [facility] Comment on above: Performed By: #### I NFLUAB #### [facility] [address] [place] [id number] Olimpia Alesia Creatinine [Mass/Vol] 1.31 mg/dL Critically high 0.66-1.25 [facility] Comment on above: Performed By: #### I NFLUAB #### [facility] [address] [place] [id number] Olimpia Alesia EGFR-AF HUNGARIAN >60 Normal >=60 [facility] Comment on above: Performed By: #### I NFLUAB #### [facility] [address] [place] [id number] Olimpia Alesia EGFR-NON AF HUNGARIAN 54 mL/min/1.73m2 Critically low >=60 [facility] Comment on above: Performed By: #### I NFLUAB #### [facility] [address] [place] [address] Olimpia Alesia Glucose [Mass/Vol] 133 mg/dL Critically high 74-106 [facility] Comment on above: Performed By: #### I NFLUAB #### [facility] [address] [place] [address] Olimpia Alesia Potassium [Moles/Vol] 4.3 mmol/L Normal 3.4-5.0 [facility] Comment on above: Performed By: #### I NFLUAB #### [facility] [address] [place] [address] Olimpia Alesia Sodium [Moles/Vol] 138 mmol/L Normal 137-145 [facility] Comment on above: Performed By: #### I NFLUAB #### [facility] [address] [place], [place] [address] Olimpia Alesia Urea nitrogen [Mass/Vol] 9.0 mg/dL Normal 9.0-20.0 [facility] Comment on above: Performed By: #### I NFLUAB #### [facility] [address] [id number] Olimpia Alesia Urea nitrogen/Creatinine [Mass ratio] 6.9 mg/mg Normal [facility] Comment on above: Performed By: #### I NFLUAB #### [facility] [address] [place] [address] Olimpia Dumas PROTIMEon 05-24-2020 INR Coag (PPP) [Relative time] 1.05 {INR} Normal [facility] Comment on above: Performed By: #### C VDRPD #### [facility] [address] [place] [address] Olimpia Dumas INR GUIDELINES SEE BELOW Normal [facility] Comment on above: Result Comment: CARIE RED INR: 2.0 - 3.0 CONDITIONS NOT LISTED BELOW 2.5 - 3.5 FOR PROSTHETIC HEART VALVE REPLACEMENT 2.5 - 3.5 RECURRENT THROMBOSIS Performed By: #### C VDRPD #### [facility] [address] [place] [address] Olimpia Dumas PT Coag (PPP) [Time] 11.4 s Normal 9.0-11.6 [facility] Comment on above: Performed By: #### C VDRPD #### [facility] [address] [place] [address] Olimpia Dumas PTTon 05-24-2020 aPTT Coag (Bld) [Time] 29.1 s Normal 22.3-36.2 [facility] Comment on above: Performed By: #### C VDRPD #### [facility] [address] [place] [address] Olimpia Dumas Rapid Covid-19 PCR (CVDRPD)o n 05-24-2020 SARS-CoV-2 (COVID-19) RNA ARSENIO+probe Ql (Unsp spec) Not detected Normal NOT DETECTED [facility] Comment on above: Result Comment: This test is not yet approved or cleared by the [place] Food and Drug Administration (FDA). This test was developed by [employer], [place], [place]. The performance characteristics of this test were validated by [facility]. The results are not intended to be used as the sole means for clinical diagnosis or patient management decisions. [facility] is authorized under Clinical Laboratory Improvement Amendments (CLIA) to perform high- complexity testing. When diagnostic testing is negative, the possibility of a false negative should be considered in the context of a patient's recent exposures and the presence of clinical signs and symptoms consistent with SARS-CoV-2. Performed By: #### C VDRPD #### [facility] [address] [place] [address] Olimpia Dumas TROPONIN, HIGH SENSITIVITYon 05-24-2020 HSTROP 12.1 pg/mL Normal 4.0-42.2 [facility] Comment on above: Result Comment: CUT- OFF POINTS HAVE BEEN ESTABLISHED BASED ON THE FOURTH UNIVERSAL DEFINITIONS OF MYOCARDIAL INFARCTION. THE UPPER REFERENCE LIMIT (URL) OF TROPONIN, DEFINED THE 99TH PERCENTILE OF cTnI DISTRIBUTION IN A REFERENCE POPULATION, HAS BEEN CONFIRMED THE DECISION THRESHOLD FOR [place] DIAGNOSIS. Performed By: #### I NFLUAB #### [facility] [address] [place] [address] Olimpia Alesia HSTROP 10.8 pg/mL Normal 4.0-42.2 [facility] Comment on above: Result Comment: CUT- OFF POINTS HAVE BEEN ESTABLISHED BASED ON THE FOURTH UNIVERSAL DEFINITIONS OF MYOCARDIAL INFARCTION. THE UPPER REFERENCE LIMIT (URL) OF TROPONIN, DEFINED THE 99TH PERCENTILE OF cTnI DISTRIBUTION IN A REFERENCE POPULATION, HAS BEEN CONFIRMED THE DECISION THRESHOLD FOR [place] DIAGNOSIS. Performed By: #### C VDRPD #### [facility] [address] [place] [address] Olimpia Dumas HSTROP 10.8 pg/mL Normal 4.0-42.2 [facility] Comment on above: Result Comment: CUT- OFF POINTS HAVE BEEN ESTABLISHED BASED ON THE FOURTH UNIVERSAL DEFINITIONS OF MYOCARDIAL INFARCTION. THE UPPER REFERENCE LIMIT (URL) OF TROPONIN, DEFINED THE 99TH PERCENTILE OF cTnI DISTRIBUTION IN A REFERENCE POPULATION, HAS BEEN CONFIRMED THE DECISION THRESHOLD FOR [place] DIAGNOSIS. Performed By: #### H STROPN, BNP, CMP #### [facility] [address] [place], [place] [id number] Olimpiayuriy Olsenen XR CHEST 1 Von 05-24-2020 XR CHEST 1 V CHEST RADIOGRAPH: HISTORY: SHORTNESS OF BREATH. COMPARISON: Chest 01/23/2019. TECHNIQUE: AP radiograph of was performed of the chest. FINDINGS: SUPPORT APPARATUS/POST-SURGI LONNIE CHANGES: Median sternotomy wires in place. CARDIOMEDIASTINAL SILHOUETTE: Cardiac silhouette is top normal in size. Probable stable stable stable mild pulmonary venous hypertension but no jeannette pulmonary edema. No focal consolidation. AIRWAYS/LUNGS: Normal. PLEURAL SPACES: No pleural effusion or pneumothorax. BONES AND SOFT TISSUES: No acute abnormality. IMPRESSION: 1. Borderline cardiomegaly and stable probable pulmonary venous hypertension. 2. No jeannette pulmonary edema or other acute process. Electronically authenticated by: DAGOBERTO ESTRELLA Date: 2020-05-23 22:50 Normal [facility] Basic Metabolic Profon 05-18 (cont.) Normal [facility] Comment on above: Result Comment: Aver age GFR for 70 or more years old: 75 mL/min/1.73sq m Chronic Kidney Disease: <60 mL/min/1.73sq m Kidney failure: <15 mL/min/1.73sq m eGFR calculated using average adult body mass. Additional eGFR calculator available at: http://www.VoteIt/multiple_crcl_2011.htm Performed By: #### C DP, BMP #### [facility] [address] [place] [address] Editor Map: Carson Grimaldo MD Anion gap molar conc 13 mmol/L Normal 9-17 [facility] Comment on above: Performed By: #### C DP, BMP #### [facility] [address] [place] [address] Editor Map: Carson Grimaldo MD BUN/CRE Ratio 17 Normal 9-20 [facility] Comment on above: Performed By: #### C DP, BMP #### [facility] [address] [place] [address] Editor Map: Carson Grimaldo MD Calcium mass conc 9.9 mg/dL Normal 8.6-10.4 [facility] Comment on above: Performed By: #### C DP, BMP #### [facility] [address] [place] [address] Editor Map: Carson Grimaldo MD Chloride molar conc 102 mmol/L Normal 98-107 [facility] Comment on above: Performed By: #### C DP, BMP #### [facility] [address] [place] [address] Editor Map: Carson Grimaldo MD CO2 molar conc 25 mmol/L Normal 20-31 [facility] Comment on above: Performed By: #### C DP, BMP #### [facility] [address] [place], [place] [id number] Editor Map: Carson Grimaldo MD Creatinine mass conc 0.90 mg/dL Normal 0.70-1.20 [facility] Comment on above: Performed By: #### C DP, BMP #### [facility] [address] [place] [address] Editor Map: Carson Grimaldo MD GFR, Amer >60 Normal >60 [facility] Comment on above: Performed By: #### C DP, BMP #### [facility] [address] [place], [place] [id number] Editor Map: Carson Grimaldo MD GFR,non Amer >60 Normal >60 [facility] Comment on above: Performed By: #### C DP, BMP #### [facility] [address] [place], [place] [id number] Editor Map: Carson Grimaldo MD Glucose mass conc 105 mg/dL High 70-99 [facility] Comment on above: Performed By: #### C DP, BMP #### [facility] [address] [place], [place] [id number] Editor Map: Carson Girmaldo MD Potassium molar conc 4.1 mmol/L Normal 3.7-5.3 [facility] Comment on above: Performed By: #### C DP, BMP #### [facility] [address] [place], [place] [id number] Editor Map: Carson Grimaldo MD Sodium molar conc 140 mmol/L Normal 135-144 [facility] Comment on above: Performed By: #### C DP, BMP #### [facility] [address] [place], [place] [id number] Editor Map: Carson Grimaldo MD Staging: Normal [facility] Comment on above: Result Comment: Stag e 1: Some kidney damage normal GFR Stage 2: Mild kidney damage GFR 60-89 Stage 3: Moderate kidney damage GFR 30-59 Stage 4: Severe kidney damage GFR 15-29 Stage 5: Severe kidney damage GFR <15 ESRD - chronic treatment by dialysis or transplant Performed By: #### C DP, BMP #### [facility] [address] [place] [id number] Editor Map: Carson Grimaldo MD Urea nitrogen mass conc 15 mg/dL Normal 8-23 [facility] Comment on above: Performed By: #### C DP, BMP #### [facility] [address] [place] [id number] Editor Map: Carson Grimaldo MD CBC with Diffon 05-18-2018 Abs. Basophil 0.06 k/uL Normal 0.00-0.20 [facility] Comment on above: Performed By: #### C DP, BMP #### [address] [place], [place] [id number] Editor Map: Carson Grimaldo MD Abs.Imm.Granulocyte 0.04 k/uL Normal 0.00-0.30 [facility] Comment on above: Performed By: #### C DP, BMP #### [facility] [address] [place], [place] [id number] Editor Map: Carson Grimaldo MD Abs.Neutrophil (Seg) 6.80 k/uL Normal 1.50-8.10 [facility] Comment on above: Performed By: #### C DP, BMP #### [facility] [address] [place], [place] [id number] Editor Map: Carson Grimaldo MD Basophils/100 WBC (Bld) 1 % Normal 0-2 [facility] Comment on above: Performed By: #### C DP, BMP #### [facility] [address] [place], [place] [address] Editor Map: Carson Grimaldo MD Eosinophils #/vol (Bld) 0.24 10*3/uL Normal 0.00-0.44 [facility] Comment on above: Performed By: #### C DP, BMP #### [facility] [address] [place], [place] [address] Editor Map: Carson Grimaldo MD Eosinophils/100 WBC (Bld) 3 % Normal 1-4 [facility] Comment on above: Performed By: #### C DP, BMP #### [facility] [address] [place], [place] [address] Editor Map: Carson Grimaldo MD Erythrocyte distribution width Ratio (RBC) 14.7 % High 11.8-14.4 [facility] Comment on above: Performed By: #### C DP, BMP #### [address] [place], [place] [address] Editor Map: Carson Grimaldo MD Hematocrit Volume Fraction (Bld) 40.1 % Low 40.7-50.3 [facility] Comment on above: Performed By: #### C DP, BMP #### [address] [place], [place] [address] Editor Map: Carson Grimaldo MD Hemoglobin mass conc (Bld) 12.9 g/dL Low 13.0-17.0 [facility] Comment on above: Performed By: #### C DP, BMP #### [facility] [address] [address] Editor Map: Carson Grimaldo MD Immature granulocytes #/vol (Bld) 0 % Normal 0 [facility] Comment on above: Performed By: #### C DP, BMP #### [facility] [address] [place], [place] [address] Editor Map: Carson Grimaldo MD Lymphocytes #/vol (Bld) 1.86 10*3/uL Normal 1.10-3.70 [facility] Comment on above: Performed By: #### C DP, BMP #### [facility] [address] [place], [place] [id number] Editor Map: Carson Grimaldo MD Lymphocytes/100 WBC (Bld) 19 % Low 24-43 [facility] Comment on above: Performed By: #### C DP, BMP #### [facility] [address] [place], [facility] Editor Map: Carson Grimaldo MD MCH Entitic mass (RBC) 34.9 pg High 25.2-33.5 [facility] Comment on above: Performed By: #### C DP, BMP #### [address] [place], [place] [address] Editor Map: Carson Grimaldo MD MCHC mass conc (RBC) 32.2 g/dL Normal 28.4-34.8 [facility] Comment on above: Performed By: #### C DP, BMP #### [address] [place], [facility]83 Editor Map: Carson Grimaldo MD MCV Entitic volume (RBC) 108.4 fL High 82.6-102.9 [facility] Comment on above: Performed By: #### C DP, BMP #### [address] [place], [facility]83 Editor Map: Carson Grimaldo MD Monocytes #/vol (Bld) 0.66 10*3/uL Normal 0.10-1.20 [facility] Comment on above: Performed By: #### C DP, BMP #### [address] [place], [place] [id number] Editor Map: Carson Grimaldo MD Monocytes/100 WBC (Bld) 7 % Normal 3-12 [facility] Comment on above: Performed By: #### C DP, BMP #### [facility] [address] [place], [place] [id number] Editor Map: Carson Grimaldo MD Neutrophil (Seg) 70 % High 36-65 [facility] Comment on above: Performed By: #### C DP, BMP #### [facility] [address] [place], [facility]83 Editor Map: Carson Grimaldo MD NRBC Automated 0.0 per 100 WBC Normal 0.0 [facility] Comment on above: Performed By: #### C DP, BMP #### [facility] [address] [place], [facility]83 Editor Map: Carson Grimaldo MD Platelet mean volume Entitic volume (Bld) 12.8 fL Normal 8.1-13.5 [facility] Comment on above: Performed By: #### C DP, BMP #### [facility] [address] [place], [place] [id number] Editor Map: Carson Grimaldo MD Platelets #/vol (Bld) 166 10*3/uL Normal 138-453 [facility] Comment on above: Performed By: #### C DP, BMP #### [address] [place], [place] [id number] Editor Map: Carson Grimaldo MD RBC #/vol (Bld) 3.70 10*6/uL Low 4.21-5.77 [facility] Comment on above: Performed By: #### C DP, BMP #### [facility] [address] [place], [place] [id number] Editor Map: Carson Grimaldo MD WBC #/vol (Bld) 9.7 10*3/uL Normal 3.5-11.3 [facility] Comment on above: Performed By: #### C DP, BMP #### [facility] [address] [place], [place] [id number] Editor Map: Carson Grimaldo MD Auto Diff Performed NOT REPORTED Normal [facility] Comment on above: Performed By: #### C DP, BMP #### [facility] [address] [place], [place] [id number] Editor Map: Carson Grimaldo MD Platelets #/vol (Bld) NOT REPORTED Normal [facility] Comment on above: Performed By: #### C DP, BMP #### [facility] [address] [place], [place] [id number] Editor Map: Carson Grimaldo MD RBC morphology finding Nom (Bld) NOT REPORTED Normal [facility] Comment on above: Performed By: #### C DP, BMP #### [facility] [address] [place] [address] [place], [place] [id number] Editor Map: Carson Grimaldo MD WBC Morphology NOT REPORTED Normal [facility] Comment on above: Performed By: #### C DP, BMP #### [facility] [address] [place] [address] [place] [place], [place] [id number] Editor Map: Carson Grimaldo MD AST (SGOT)on 05-01-2018 AST enzyme act/vol 19 U/L Normal 13-39 [facility] Comment on above: Performed By: #### 1 [id number] #### [facility] [address] [place] [address] Creatinineon 05-01-2018 Creatinine mass conc 1.03 mg/dL Normal 0.50-1.30 [facility] Comment on above: Performed By: #### 1 [id number] #### [facility] [address] [place] [address] GFR/1.73 sq M.predicted MDRD vol rate/area mL/min/{1.73_m2} Normal [facility] Comment on above: Result Comment: Inte rpretation for Chronic Kidney Disease: Stages 1&2 >60 Healthy or potential kidney damage. Mild decrease of GFR. Stage 3 30-59 Moderate decrease of GFR. Stage 4 15-29 Severe decrease of GFR. Stage 5 <15 Kidney failure or on dialysis. Performed By: #### 1 [id number] #### [facility] [address] [place] [address] Electrolyte Panelon 05-02-19 19 Anion gap molar conc 11 mmol/L Normal 10-20 [facility] Comment on above: Performed By: #### 1 [id number] #### [facility] [address] [place] [address] Chloride molar conc 101 mmol/L Normal 98-107 [facility] Comment on above: Performed By: #### 1 [id number] #### [facility] [address] [place] [address] HCO3 molar conc (Bld) 33 mmol/L High 21-32 [facility] Comment on above: Performed By: #### 1 [id number] #### [facility] [address] [place] [address] Potassium molar conc 4.0 mmol/L Normal 3.5-5.1 [facility] Comment on above: Performed By: #### 1 [id number] #### [facility] [address] [place] [address] Sodium molar conc 141 mmol/L Normal 136-145 [facility] Comment on above: Performed By: #### 1 [id number] #### [facility] [address] [place] [address] Lipid Panelon 05-01-2018 Cholesterol in HDL mass conc 44 mg/dL Normal [facility] Comment on above: Result Comment: Norm al Mod Risk High Risk 5-9 >48 42-48 <42 10-14 >45 40-45 <40 15-19 >38 34-38 <34 Adult >39 Performed By: #### 1 [id number] #### [facility] [address] [place] [address] Cholesterol in LDL mass conc 87 mg/dL Normal <130 [facility] Comment on above: Performed By: #### 1 [id number] #### [facility] [address] [place] [address] Cholesterol in VLDL mass conc 19 mg/dL Normal <30 [facility] Comment on above: Performed By: #### 1 [id number] #### [facility] [address] [place] [address] Cholesterol mass conc 150 mg/dL Normal <200 [facility] Comment on above: Performed By: #### 1 [id number] #### [facility] [address] [place] [address] Cholesterol.total/Roro sterol in HDL mass ratio 3.4 {ratio} Normal [facility] Comment on above: Performed By: #### 1 [id number] #### [facility] [address] [place] [address] Triglyceride mass conc 93 mg/dL Normal <150 [facility] Comment on above: Result Comment: 150- 199 Borderline High 200-499 High >500 Very High Performed By: #### 1 [id number] #### [facility] [address] [place] [address] Urea Nitrogenon 05-01-2018 Urea nitrogen mass conc 14 mg/dL Normal 6-23 [facility] Comment on above: Performed By: #### 1 [id number] #### [facility] [address] [place] [address] MRI SHOULDER LEFT WO CONTRAS Ton 02-20-2018 MRI SHOULDER LEFT WO CONTRAST EXAMINATION: MRI OF THE LEFT SHOULDER WITHOUT CONTRAST 02/20/2018 2:27 pm TECHNIQUE: Multiplanar multisequence MRI of the left shoulder was performed without the administration of intravenous contrast. COMPARISON: None. HISTORY: ORDERING SYSTEM PROVIDED HISTORY: Left shoulder pain, unspecified chronicity FINDINGS: ROTATOR CUFF: Diffuse tendinopathy of the supraspinatus and infraspinatus tendons noted. There is a superimposed full-thickness tear involving the anterior-most fibers of the supraspinatus tendon spanning approximately 1.2 cm in AP dimension and 9 mm in medial-lateral dimension. BICEPS TENDON: Tendinopathy and intrasubstance tearing of the biceps tendon. No rupture identified. LABRUM: Fissuring of the superior labrum at the biceps labral junction. No displaced labral tear identified. GLENOHUMERAL JOINT: The articular cartilage overlying the glenoid fossa is normal. There is no glenohumeral joint effusion. There is no loose body or debris present within the glenohumeral joint. AC JOINT AND ACROMIOCLAVICULAR ARCH: Mild AC joint arthrosis. Acromion is flat in the sagittal plane. BONE MARROW: No discrete marrow signal abnormality. OUTLET SPACES: The suprascapular notch and quadrilateral space are without obstructing or space occupying lesions. IMPRESSION: Supraspinatus and infraspinatus tendinopathy. Superimposed full-thickness tear involving the anterior-most fibers of the supraspinatus tendon spanning 1.2 x 0.9 cm. Tendinopathy and intrasubstance tearing of the intra-articular biceps tendon. Fissuring of the superior labrum. Interpreted by: Trung Mcnamara MD Signed by: Trung Mcnamara MD 02/20/18 Final result Normal [facility] Vital Signs Date Time Vital Sign Value Performing Clinician Facility 07-21-2023 12:00-0400 Body temperature 98.3 [degF] DO Husam Taylor Work Phone: [facility] 07-21-2023 12:00-0400 Diastolic blood pressure 58 mm[Hg] DO Husam Taylor Work Phone: [facility] 07-21-2023 12:00-0400 Heart rate 64 /min DO Husam Taylor Work Phone: [facility] 07-21-2023 12:00-0400 Inhaled oxygen flow rate 2 L/min DO Husam Taylor Work Phone: [facility] 07-21-2023 12:00-0400 Respiratory rate 20 /min DO Husam Taylor Work Phone: [facility] 07-21-2023 12:00-0400 SaO2% (BldA) [Mass fraction] 99 % DO Husam Taylor Work Phone: [facility] 07-21-2023 12:00-0400 Systolic blood pressure 98 mm[Hg] DO Husam Taylor Work Phone: [facility] 07-21-2023 05:00-0400 Body weight 109.7 kg DO Husam Taylor Work Phone: [facility] 07-20-2023 12:16-0400 Body height 152.4 cm DO Husam Taylor Work Phone: [facility] 10-14-2022 11:00-0400 Body height 152.4 cm Husam Taylor Other [facility] Other 10-14-2022 11:00-0400 Body mass index (BMI) [Ratio] 46.09 kg/m2 Husam Taylor Other [facility] Other 10-14-2022 11:00-0400 Body weight 107.05 kg Husamwhitley Taylor Other [facility] Other 10-14-2022 11:00-0400 Diastolic blood pressure 80 mm[Hg] Husam Taylor Other [facility] Other 10-14-2022 11:00-0400 Respiratory rate 20 /min Husam Taylor Other [facility] Other 10-14-2022 11:00-0400 SaO2% (BldA) [Mass fraction] 95 % Husam Taylor Other [facility] Other 10-14-2022 11:00-0400 Systolic blood pressure 124 mm[Hg] Husam Taylor Other [facility] Other 10-19-2021 14:30-0400 Body height 152.4 cm Husam Taylor Other [facility] Other 10-19-2021 14:30-0400 Body mass index (BMI) [Ratio] 42.9 kg/m2 Husam Claudia Other [facility] Other 10-19-2021 14:30-0400 Body temperature 96.6 [degF] Husam Claudia Other [facility] Other 10-19-2021 14:30-0400 Body weight 99.66 kg Husam Claudia Other [facility] Other 10-19-2021 14:30-0400 Diastolic blood pressure 72 mm[Hg] Husamwhitley Taylor Other [facility] Other 10-19-2021 14:30-0400 Respiratory rate 20 /min Husam Claudia Other [facility] Other 10-19-2021 14:30-0400 SaO2% (BldA) [Mass fraction] 95 % Husam Claudia Other [facility] Other 10-19-2021 14:30-0400 Systolic blood pressure 110 mm[Hg] Husam lCaudia Other [facility] Other 07-08-2021 14:30-0400 Body height 152.4 cm Husam Taylor Other [facility] Other 07-08-2021 14:30-0400 Body mass index (BMI) [Ratio] 44.15 kg/m2 Husam Taylor Other [facility] Other 07-08-2021 14:30-0400 Body weight 102.56 kg Husam Taylor Other [facility] Other 07-08-2021 14:30-0400 Diastolic blood pressure 80 mm[Hg] Husam Claudia Other [facility] Other 07-08-2021 14:30-0400 Respiratory rate 20 /min Husam Ericksonmer Other [facility] Other 07-08-2021 14:30-0400 SaO2% (BldA) [Mass fraction] 96 % Husam Ericksonmer Other [facility] Other 07-08-2021 14:30-0400 Systolic blood pressure 130 mm[Hg] Husam Claudia Other [facility] Other 04-09-2021 14:30-0500 Body height 152.4 cm Husam Claudia Other [facility] Other 04-09-2021 14:30-0500 Body mass index (BMI) [Ratio] 43.35 kg/m2 Husam Ericksonmer Other [facility] Other 04-09-2021 14:30-0500 Body weight 100.7 kg Husam Claudia Other [facility] Other 04-09-2021 14:30-0500 Diastolic blood pressure 78 mm[Hg] Husam Claudia Other [facility] Other 04-09-2021 14:30-0500 Respiratory rate 18 /min Husam Claudia Other [facility] Other 04-09-2021 14:30-0500 SaO2% (BldA) [Mass fraction] 96 % Husam Taylor Other [facility] Other 04-09-2021 14:30-0500 Systolic blood pressure 128 mm[Hg] Husam Taylor Other [facility] Other 11-26-2020 16:30-0400 Body height 152.4 cm Husam Taylor Other [facility] Other 11-26-2020 16:30-0400 Body mass index (BMI) [Ratio] 42.96 kg/m2 Husam Taylor Other [facility] Other 11-26-2020 16:30-0400 Body temperature 98 [degF] Husam Taylor Other [facility] Other 11-26-2020 16:30-0400 Body weight 99.79 kg Husam Taylor Other [facility] Other 11-26-2020 16:30-0400 Diastolic blood pressure 72 mm[Hg] Husam Taylor Other [facility] Other 11-26-2020 16:30-0400 Respiratory rate 20 /min Husam Taylor Other [facility] Other 11-26-2020 16:30-0400 SaO2% (BldA) [Mass fraction] 96 % Husam Taylor Other [facility] Other 11-26-2020 16:30-0400 Systolic blood pressure 130 mm[Hg] Husam Taylor Other [facility] Other Encounters Encounter Date Encounter Type Care Provider Facility Start: 07-23-2023 End: 07-29-2023 Emergency department patient visit DAYAMI GIRNO [facility] Start: 07-23-2023 End: 07-28-2023 Evaluation and management of inpatient DAYAMI GIRON [facility] Start: 07-19-2023 Non-patient / Non-visit DO Mat autumn Taylor Work Phone: [facility] [place] Work Phone: Start: 07-18-2023 Non-patient / Non-visit DO Mat autumn Taylor Work Phone: [facility] Work Phone: Start: 07-18-2023 End: 07-21-2023 Evaluation and management of inpatient DO Husam Taylor Work Phone: [facility] Work Phone: Start: 05-10-2023 Non-patient / Non-visit DO Aj Taylor Work Phone: [facility] [place] Work Phone: Start: 03-14-2023 End: 03-14-2023 ambulatory Husam Taylor Other [facility] Other Start: 03-14-2023 Telephone encounter Husam [facility] [place] Start: 01-28-2023 End: 01-28-2023 ambulatory Husam Taylor Other [facility] Other Start: 01-28-2023 Telephone encounter Husam Butterfield [facility] [place] Start: 11-22-2022 End: 11-22-2022 ambulatory Husam Taylor Other [facility] Other Start: 11-22-2022 Telephone encounter Husam Butterfield [facility] [place] Start: 11-17-2022 End: 11-17-2022 ambulatory Husam Taylor Other [facility] Other Start: 11-17-2022 Telephone encounter Husam Butterfield [facility] [place] Start: 11-10-2022 End: 11-10-2022 ambulatory Husam Taylor Other [facility] Other Start: 11-10-2022 Telephone encounter Husam Taylor [facility] [place] Start: 11-05-2022 End: 11-05-2022 ambulatory Husam Taylor Other [facility] Other Start: 11-05-2022 Telephone encounter Husam Butterfield [facility] [place] Start: 10-14-2022 End: 10-14-2022 ambulatory Husam Taylor Other [facility] Other Start: 10-14-2022 Encounter for genera l adult medical examination without abnormal findings Husam Taylor [facility] [place] Start: 10-14-2022 Patient encounter procedure Husam Taylor [facility] [place] Start: 09-30-2022 End: 09-30-2022 ambulatory Gingerjuliette Castanondarrin Other [facility] Other Start: 09-30-2022 Telephone encounter Ginger Banegas [facility] [place] Start: 09-27-2022 End: 09-27-2022 ambulatory Ginger Bassam Other [facility] Other Start: 09-27-2022 Telephone encounter Ginger Banegas [facility] [place] Start: 09-14-2022 End: 09-14-2022 ambulatory Husam Taylor Other [facility] Other Start: 09-14-2022 Telephone encounter Husam Taylor [facility] [place] Start: 08-25-2022 End: 08-25-2022 ambulatory Husam Taylor Other [facility] Other Start: 08-25-2022 Telephone encounter Husam Butterfield [facility] [place] Start: 11-13-2021 End: 11-13-2021 ambulatory Carson Doherty Other [facility] Other Start: 11-13-2021 Telephone encounter Carson Doherty [facility] [place] Start: 11-12-2021 End: 11-12-2021 ambulatory Husam Taylor Other [facility] Other Start: 11-12-2021 Telephone encounter Husam Butterfield [facility] [place] Start: 10-19-2021 End: 10-19-2021 ambulatory Husam Taylor Other [facility] Other Start: 10-19-2021 Office outpatient vi sit 25 minutes Husam Taylor [facility] [place] Start: 08-25-2021 End: 08-25-2021 ambulatory Carson Doherty Other [facility] Other Start: 08-25-2021 Telephone encounter Carson HERNANDEZ [facility] [place] Start: 07-30-2021 End: 07-30-2021 ambulatory Husam Taylor Other [facility] Other Start: 07-30-2021 Telephone encounter Husam Butterfield [facility] [place] Start: 07-17-2021 End: 07-17-2021 ambulatory Husam Taylor Other [facility] Other Start: 07-17-2021 Telephone encounter Husam Butterfield [facility] [place] Start: 07-10-2021 End: 07-10-2021 ambulatory Husam Taylor Other [facility] Other Start: 07-10-2021 Telephone encounter Husam Butterfield [facility] [place] Start: 07-09-2021 End: 07-09-2021 ambulatory Husam Taylor Other [facility] Other Start: 07-09-2021 Telephone encounter Husam Butterfield [facility] [place] Start: 07-08-2021 End: 07-08-2021 ambulatory Husam Taylor Other [facility] Other Start: 07-08-2021 Office outpatient vi sit 25 minutes Husam Taylor [facility] [place] Start: 07-08-2021 Telephone encounter Husam Butterfield [facility] [place] Start: 07-02-2021 End: 07-02-2021 ambulatory Husam Taylor Other [facility] Other Start: 07-02-2021 Telephone encounter Husam Butterfield [facility] [place] Start: 06-17-2021 End: 06-17-2021 ambulatory Husam Taylor Other [facility] Other Start: 06-17-2021 Telephone encounter Husam Butterfield [facility] [place] Start: 06-08-2021 End: 06-08-2021 ambulatory Husam Taylor Other [facility] Other Start: 06-08-2021 Telephone encounter Husam [facility]field [facility] [place] Start: 05-14-2021 End: 05-14-2021 ambulatory Husam Taylor Other [facility] Other Start: 05-14-2021 Telephone encounter Husam Butterfield [facility] [place] Start: 04-23-2021 End: 04-23-2021 ambulatory Husam Taylor Other [facility] Other Start: 04-23-2021 Telephone encounter Husam Butterfield [facility] [place] Start: 04-20-2021 End: 04-20-2021 ambulatory Husam Taylor Other [facility] Other Start: 04-20-2021 Telephone encounter Husam Butterfield [facility] [place] Start: 04-09-2021 End: 04-09-2021 ambulatory Husam Taylor Other [facility] Other Start: 04-09-2021 Office outpatient vi sit 25 minutes Husam Taylor [facility] [place] Start: 04-09-2021 Telephone encounter Husam Butterfield [facility] [place] Start: 2021 End: 2021 ambulatory Ricardo Dunnetam Other [facility] Other Start: 2021 Telephone encounter Ricardo HERNANDEZ [facility] Start: 03-11-2021 End: 03-11-2021 ambulatory Husam Taylor Other [facility] Other Start: 03-11-2021 Telephone encounter Husam Butterfield [facility] [place] Start: 02-11-2021 End: 02-11-2021 ambulatory Husam Taylor Other [facility] Other Start: 02-11-2021 Telephone encounter Husam Butterfield [facility] [place] Start: 02-09-2021 End: 02-09-2021 ambulatory Ricardo Ladd Other [facility] Other Start: 02-09-2021 Telephone encounter Ricardo HERNANDEZ [facility] Start: 01-05-2021 End: 01-05-2021 ambulatory Ricardo Ladd Other [facility] Other Start: 01-05-2021 Telephone encounter Ricardo HERNANDEZ [facility] Start: 12-26-2020 End: 12-26-2020 ambulatory Husam Taylor Other [facility] Other Start: 12-26-2020 Telephone encounter Husam Butterfield [facility] [place] Start: 12-22-2020 Office outpatient vi sit 25 minutes Ricardo Ladd [facility] Start: 11-26-2020 Office outpatient vi sit 15 minutes Husam Taylor [facility] [place] Start: 11-26-2020 Telephone encounter Husam Butterfield [facility] [place] Start: 08-13-2020 End: 08-14-[address] TREVOR GRACIA Facility:[facility] Start: 05-24-2020 End: 05-25-[address] DOCTOR FLOWERS Facility:[facility] Start: 05-18-2018 End: 05-23-2018 Patient encounter procedure DAGOBERTO [facility] Start: 05-01-2018 Patient encounter procedure PHIL OWENS Facility:[id number] Start: 04-13-2018 Patient encounter procedure RENUKA MITCHELLIM Facility:[id number] Start: 02-20-2018 End: 02-23-2018 Patient encounter procedure JASMYN Arenas [facility] Procedures Date Procedure Procedure Detail Performing Clinician Start: 07-19-2023 CL Closure Device Placement 0 DO Husam Taylor Work Phone: Start: 07-19-2023 CL LHC & COR Angio w/grafts DO Husam Taylor Work Phone: Start: 07-19-2023 CL Stent 1st Vessel LM KARL DO Husam Taylor Work Phone: Start: 05-18-2018 Ecg routine ecg w/le ast 12 lds w/i&r JASMYN CANTUAN Start: 05-18-2018 EKG REPORT JASMYN JIM Start: 05-18-2018 Basic metabolic pane l calcium total JASMYN HENSLEY Start: 05-18-2018 Blood count complete auto&auto difrntl wbc JASMYN HENSLEY Start: 02-20-2018 Mri any jt upper extremity w/o contrast matrl JASMYN CANTUAN Plan of Treatment Date Care Activity Detail Author Start: 07-21-2023 [facility] Start: 07-20-2023 [facility] Start: 07-19-2023 Referral to tube dispatcher [facility] Start: 07-18-2023 Hospital admission [facility] Erythropoietin (EPO) [Units/volume] in Serum or Plasma [facility] Methylmalonate [Moles/volume] in Serum or Plasma [facility] Patient Education Coronary Angio plasty (DC) Coronary Stenting (DC) Angina (DC) Chest Pain (DC) Drug Eluting [facility] Work Phone: Patient referral [facility] Work Phone: Immunizations Immunization Date Immunization Notes Care Provider Fa cility 04-09-2021 pneumococcal polysaccharide vaccine, 23 valent Husam Taylor Other [facility] 12-11-2020 influenza, seasonal, injectable Husam Taylor Other [facility] 05-07-2020 COVID-19 Vaccine Pfi zer - Documentation Purposes Only Husam aTylor Other [facility] 04-16-2020 COVID-19 Vaccine Pfi zer - Documentation Purposes Only Husam Taylor Other [facility] 02-27-2020 pneumococcal conjuga te vaccine, 13 valent Husam Taylor Other [facility] 01-26-2019 influenza, high dose seasonal, preservative-free DO Husam Taylor Work Phone: [facility] Payers Date Payer Category Payer Medicare [id number] 2023 Self-pay [id number] 2014 Unknown [id number] 1959 Medicaid [id number] 1959 Unknown [id number] 1950 Unknown [id number] 2.16.8 [id number] 1948 Unknown [id number] 2.16.8 [id number] 1948 Unknown [id number] 2.16.8 [id number] 1948 Unknown [id number] 2.16.8 [id number] 1948 Unknown [id number] 2.16.84 [id number] 1948 Unknown [id number] 2.16.84 [id number] 1948 Unknown [id number] 2.16.8 [id number] 1948 Unknown [id number] 2.16.8 [id number] Medicare [id number] 2.16. [id number] Private Health Insurance [id number] Unknown [id number] 2.16.8 [id number] Social History Date Type Detail Facility Sex Assigned At [facility]: [facility] Start: 1950 Sex Assigned At Male [facility] Medical Equipment Procedure Code Equipment Code Equipment Origin al Text Equipment Identifier Dates Arthroscopy, shoulder ANCHOR SUTURE FT III [id number] FDA Start: 09-19-2018 Start: 03-04-2020 CL STENT CONRADO FRONTIER 3.5 X 18 FDA Start: 07-19-2023 Femoral artery closure plug/patch, synthetic polymer ()[id number] FDA Start: 07-19-2023 Goals Date Patient Goal Desired Activity /State Functional Status Date Assessment Result Facility 07-21-2023 Functional status Patient is Pro gressing Toward [facility] Work Phone: Mental Status Date Assessment Result Facility 07-21-2023 Cognitive function Cognitive Sta tus Patient at [facility] Work Phone: Clinical Notes 11-26-2020 to 07-21-2023 Note Date & Type Note Facility 07-21-2023 Discharge summary Note Date/Time July 21, 2023 1:21pm [facility] [address] [place] [address] Discharge Summary Signed Patient: Brian Love MR#: [id number] : 1950 Acct:[id number] Age/Sex: 73 / M Adm Date: 4 Loc: Room: [address] [place] [address]: Husam Taylor DO Copies to: Husam Taylor DO~ Providers Date of Discharge: 07/21/23 Discharging Provider: Husam Taylor Primary Care Provider: Husam Taylor Consults: 07/18/23 13:07 Consult to Cardiology Routine Comment: Consulting Provider: [facility] Reason For Exam: angina, chf exacerbation Has Provider Been Notified: Yes Date of Notification: 07/18/23 Time of Notification: 13:29 07/19/23 07:23 Consult to Hematology Routine Comment: Consulting Provider: Mani Gibbons II Reason For Exam: pancytopenia Has Provider Been Notified: Yes Date of Notification: 07/19/23 Time of Notification: 07:38 Consult to Occupational Therapy Routine Comment: Physician Instructions: weakness, D/C planning Consult to OT for:: Evaluation and Treat Consult to Physical Therapy Routine Comment: Physician Instructions: weakness, D/C planning Consult to PT for:: Evaluation and Treat Discharge Diagnosis (1) CHF exacerbation: (2) HTN (hypertension): (3) COPD (chronic obstructive pulmonary disease): (4) Anxiety: (5) Type 2 diabetes mellitus with hyperglycemia, without long-term current use of insulin: (6) Obstructive sleep apnea: (7) Chest pain: (8) Acute coronary syndrome: (9) Macrocytic anemia: Final Diagnosis Final Discharge Diagnosis: 1. [place], PCI performed 2. Dyspnea, improving 3. Weakness, patient to get rehab at [facility] facility 4. Diabetes, stable on medication 5. Macrocytic anemia and pancytopenia, follow-up with oncology 6. Folate deficiency, replete folate started in the hospital 7. COPD on nasal cannula oxygen, stable 8. Hypertension, stable 9. 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 He did have elevated troponins in the emergency room and he was monitored overnight and his troponins did elevate a little bit more. Cardiology ultimately decided to take him to the [facility] where stents were placed patient was having chest pain and dyspnea prior to PCI and the chest pain resolved after PCI. Patient's dyspnea especially exertional was still present and he was having some weakness and dizziness with trying to ambulate. This is likely related to significant deconditioning as he has been doing well less and less over the last couple of months due to the chest pain. PT/OT evaluated the patient and determined he would benefit from [facility] facility for rehabilitation. Patient initially refused this but ultimately decided he was agreeable to it. Patient'sblood pressure and blood sugar remained stable throughout his hospital admission. Patient was accepted into [facility] facility for rehab and he was discharged in stable condition. On the day of discharge patient had no complaints and he was medically stable. Condition Condition at Discharge: Stable Status at Discharge Functional status at discharge: uses cane/walker Overall status at discharge: patient is progressing back to baseline Time Spent with Patient Time spent providing/coordinating discharge services (# min): 40 Surgeries and Procedures Operation Date: 07/19/23 17:00 Actual Procedures p CL Closure Device Placement 0 - W Kai Ledezma DO p CL LHC & COR Angio w/grafts - W Kai Ledezma DO p CL Stent 1st Vessel LM KARL - W Kai Ledezma DO Complications Complications: None Discharge Plan Discharge Plan Patient Disposition: Correction Facility Activity: Ambulate as Tolerated and With Assist Diet: Diabetic, Carb Count and Low-Sodium Additional Instructions: DISCHARGE INSTRUCTIONS FOR ANGIOPLASTY/CORONARY/PERIPHERAL/STENT IMPLANT FOR ADULT ANTICOAGULATION -Since the greatest risk of a blood clot forming with the stent occurs in the first 2-3 weeks after implantation, you will need to take anticoagulants for at least 12-18 months. ANTICOAGULATION MEDICATION Aspirin 81mg once a day, Ticagrelor (Brilinta) 90mg twice a day STATIN MEDICATION Simvastatin 40 mg Daily Drug-Eluting Stent (KARL) DO NOT discontinue Brilinta/Aspirin during the first few months regardless of what you are advised by your family doctor or pharmacist, without first calling the sales merchandising specialist who implanted the stent. If you require pain relief during this time, please take only ACETAMINOPHEN (TYLENOL)- NO additional aspirin or ibuprofen. DISCHARGE ACTIVITIES ARE FOLLOWS: First week after discharge: -Take it easy at home, no strenuous activity. -Do not lift or pull objects over 10-15 pounds, including children, and groceries for four weeks. If puncture site is at wrist do NOT lift more than three pounds for three days. - May walk up stairs. -May shower. -No excessive scrubbing of the affected site (groin). -May ride in car. -May resume sexual intercourse after 1-2 weeks. -No MRI for 12 days. -May drive in 4-7 days. -If puncture site is at the wrist do not manipulate the wrist for 24 hours, and no soaking wrist for three days. Second Week: -May take a bath -May start walking 3 times a week for 15-20 minutes at a leisurely pace. You should be able to carry on a conversation comfortably without feeling winded. -No strenuous activity as in jogging, running, weight lifting, stair steppers, etc. until the sales merchandising specialist approves these activities. Check with the sales merchandising specialist on your first follow-up visit. CALL YOUR SPECIAL PROJECTS COORDINATOR: -If bleeding should occur from the catheter insertion site- apply pressure to the site then immediately call us. -Report any fever, redness, drainage, increased swelling, or firmness at the catheter insertion site. Some bruising or slight swelling may be present at thetime of discharge. -Should arm or leg become cold, numb, white, or blue, contact the sales merchandising specialist immediately. -IF you should experience episodes of angina, e.g. chest discomfort, heaviness, tightness, pressure burning with or without radiation to the neck, jaw, arms or back- use 1 Nitrostat tablet under your tongue every 5-10 minutes and up to three tablets. IF NO RELIEF, CALL 911 or GO TO THE NEAREST EMERGENCY ROOM. -Please notify our office if you have recurrent angina. -Cardiac Rehab Education Provided. Participation in the Cardiopulmonary Rehabilitation program is recommended. The attending sales merchandising specialist or a nurse clinician should provide you with specificinstructions regarding activity, diet, medications, and further follow up for you. Follow the medication instructions provided on your discharge. If the dosages and instructions on this sheet differ from the dosage and instructions on the bottle, follow the instructions on the bottle. [facility] is not responsible for incorrect prescription information provided by thepatient during their visit. Do not stop your medications without consulting your health care provider. Please take the list with you to your next doctor's appointment. Instructions: Coronary Angioplasty (DC), Coronary Stenting (DC), Angina (DC), Chest Pain (DC), Drug Eluting Stents Prescriptions: New Brilinta 90 mg Tablet 90 mg PO BID 90 Days Qty: 180 3RF folic acid 1 mg Tablet 1 mg PO DAILY 30 Days Qty: 30 0RF Continued albuterol sulfate 2.5 mg /3 mL (0.083 %) solution for nebulization 2.5 mg inhalation TID PRN (Reason: Shortness Of Breath) Patient Comments: USE 1 VIAL VIA NEBULIZER EVERY 8 HOURS NEEDED (DME) blood sugar diagnostic [Glucometer Encore Test] .ROUTE (DME) blood sugar diagnostic [Pharmacist Choice] .ROUTE (DME) oxygen-air delivery systems [PV Classic Oxygen Concentrator] .ROUTE metoprolol tartrate 25 mg tablet 12.5 mg PO BID Rx Instructions: TAKE 1/2 (ONE-HALF) OF A TABLET BY MOUTH TWICE DAILY Orally Twice a day lisinopril 2.5 mg tablet 2.5 mg PO DAILY 90 Days Qty: 90 1RF Rx Instructions: TAKE 1 TABLET BY MOUTH ONCE DAILY metformin 750 mg tablet extended release 24 hr See Rx Instructions .ROUTE .COMPLEX Qty: 90 1RF Dose Instruction: Take 1 tablet by mouth daily with evening meal. Rx Instructions: Take 1 tablet by mouth daily with evening meal. paroxetine HCl 10 mg tablet 10 mg PO DAILY 90 Days Qty: 90 1RF simvastatin 40 mg tablet 40 mg PO QHS aspirin [Aspir-81] 81 mg Tablet,Delayed Release (Dr/Ec) 81 mg PO DAILY nitroglycerin 0.4 mg Tablet, Sublingual 0.4 mg SUBLINGUAL Q5-15M PRN (Reason: Chest Pain) Patient Comments: pt has not used this medication Discontinued pioglitazone 30 mg tablet 30 mg PO DAILY 90 Days Qty: 90 1RF Rx Instructions: 1 tablet Orally Once a day Follow Up: Husam Taylor DO [Primary Care Provider] - (Once d/c from SNF) Luz Dover APRN [Nurse Practitioner] - 07/27/23 8:30 am Mani Gibbons II, DO [Active Staff - D.O.] - (Call office for appt. ) Exam Physical Exam Vital Signs: Temp Pulse Resp BP Pulse Ox O2 Del Method O2 Flow Rate 98.3 F 64 20 98/58 L 99 Nasal Cannula 2 07/21/23 12:00 07/21/23 12:00 07/21/23 12:00 07/21/23 12:00 07/21/23 12:00 07/21/23 12:00 07/21/23 12:00 Const General: cooperative, comfortable and no acute distress Nutritional Appearance: obese centrally HEENT Head: normocephalic and atraumatic Ears: hearing grossly normal bilaterally Mouth: moist mucous membranes Eyes EOM: EOM intact bilaterally Neck Lymphatic: no lymphadenopathy noted Resp Effort & Inspection: normal respiratory effort, no audible wheezes, no cough andno grunting Auscultation: clear to auscultation bilaterally, no crackles, no rales, no rhonchi and no wheezes Cardio Jugular venous pressure: no JVD Rate: regular rate Rhythm: regular rhythm Pulses: radial pulses present bilaterally 1+ and dorsalis pedis present bilaterally 1+ GI Inspection: obesity Palpation: soft Percussion: normal to percussion Auscultation: normal bowel sounds Skin Rashes: no rashes Neuro General: patient alert, patient awake and patient oriented x3 Cranial Nerves: CN's II-XII intact bilaterally Cognition: normal cognition Speech: speech normal Extrem General: no calf tenderness and edema Laterality: bilaterally Location: Trace Severity: pitting Psych Mood: congruent mood Affect: normal affect Speech and Movement: speech and movement normal Attitude: cooperative Thought Process: normal Thought Content: normal Insight: insight good Judgment: judgment good Diagnostic Studies Completed and Pending Studies Pending studies at discharge: 07/20/23 04:50 Erythropoetin (EPO), Serum IN AM Immunofixation,Serum IN AM Methylmalonic Acid IN AM Protein Electrophoresis, Serum IN AM Serum Free Light Chains [Free K+L LT Chains, Qn, S] IN AM 07/22/23 05:00 Complete Blood Count Auto Diff IN AM Comprehensive Metabolic Panel [CHEM] IN AM Labs on day of discharge: 07/21/23 11:45: POC Glucose 125 07/21/23 07:22: POC Glucose 118 07/21/23 04:35: Corrected WBC 5.5, Uncorrected WBC Count 5.5, RBC 2.52 L, Hgb 8.5 L, Hct 26.0 L, MCV 103.2 H, MCH 33.9, MCHC 32.9, RDW 15.5 H, Plt Count 120 L, MPV 10.0, Neut % (Auto) 72.9, Lymph % (Auto) 13.0, [place] % (Auto) 9.4, Eos % (Auto) 3.7, Baso % (Auto) 1.0, Nucleat RBC Rel Count 0.2, Neut # (Auto) 4.0, Lymph # (Auto) 0.7 L, [place] # (Auto) 0.5, Eos # (Auto) 0.2, Baso # (Auto) 0.1, PHA Creatinine Clear 50.91, Sodium 138, Potassium 4.3, Chloride 98, Carbon Dioxide 35.9 H, Anion Gap 8.4, BUN 21, Creatinine 1.31 H, Est GFR (CKD-EPI) 56.765, Glucose 112 H, Calcium 9.4, Total Bilirubin 0.5, AST 17, ALT 10, Alkaline Phosphatase 76, Total Protein 6.6, Albumin 3.4 L, Globulin 3.2, Albumin/Globulin Ratio 1.1 07/20/23 20:29: POC Glucose 111 07/20/23 16:17: POC Glucose 121 Documented By: Husam Taylor DO 07/21/23 131 6 Signed By: <Electronically signed by Husam Taylor DO> 07/21/23 1321 [facility] Work Phone: 1(238) 337-486705-29-2024 Progress note Author Husam Taylor [facility] July 20, 2023 12:20pm Note Date/Time July 20, 2023 12:15 pm [facility] [address] [place] [address] Progress Note Signed Patient: Brian Love#: [id number] : 1950 Acct:[id number] Age/Sex: 73 / M Adm Date: 4 Loc: 4 Room: 3N2970-9 Type: ADM IN Attending Dr: Husam Taylor DO Copies to: ~ Date of Service: 07/20/2023 Subjective Subjective Narrative: Brian is resting comfortably in bed and he is status post 1 day from PCI. His chest discomfort is doing better. He did state that when he got up today with PT he had some dizziness and some shortness of breath and he had to sit back down. PT is planning to work with him again later today. He did have some hematuria earlier this morning but per nursing staff it is clearing up at this time. PT/OT evaluated the patient and determined that [facility] facility would be ideal for him for rehabilitation. Patient has been adamantly refusing this but did agree to home health. Cardiology adjusted his medical therapy for dual antiplatelet therapy along with his other home regimen. His blood sugars have been stable. Hematology evaluated the patient and initiated a workup to his underlying pancytopenia. They will follow-up with him in the outpatient. Of note his folic acid did come back low. Patient denies any acute issues or concerns other than the hematuria. His vitals are within normal limits and stable. His blood sugar has been stable as well. Exam Physical Exam Vital Signs: Temp Pulse Resp BP Pulse Ox O2 Del Method O2 Flow Rate 98.6 F 68 18 116/65 98 Nasal Cannula 3 07/20/23 08:00 07/20/23 08:00 07/20/23 08:00 07/20/23 08:00 07/20/23 08:00 07/20/23 08:00 07/20/23 08:00 Const General: cooperative, comfortable and no acute distress Nutritional Appearance: obese centrally HEENT Head: normocephalic and atraumatic Ears: hearing grossly normal bilaterally Mouth: moist mucous membranes Eyes EOM: EOM intact bilaterally Neck Lymphatic: no lymphadenopathy noted Resp Effort & Inspection: normal respiratory effort, no audible wheezes, no cough andno grunting Auscultation: clear to auscultation bilaterally, no crackles, no rales, no rhonchi and no wheezes Cardio Jugular venous pressure: no JVD Rate: regular rate Rhythm: regular rhythm Pulses: radial pulses present bilaterally 1+ and dorsalis pedis present bilaterally 1+ GI Inspection: obesity Palpation: soft Percussion: normal to percussion Auscultation: normal bowel sounds Skin Rashes: no rashes Neuro General: patient alert, patient awake and patient oriented x3 Cranial Nerves: CN's II-XII intact bilaterally Cognition: normal cognition Speech: speech normal Extrem General: no calf tenderness and edema Laterality: bilaterally Location: Trace Severity: pitting Psych Mood: congruent mood Affect: normal affect Speech and Movement: speech and movement normal Attitude: cooperative Thought Process: normal Thought Content: normal Insight: insight good Judgment: judgment good Objective Lab Results Labs: Laboratory Results - last 24 hr 07/19/23 07/19/23 07/19/23 13:15 18:54 20:13 Corrected WBC Uncorrected WBC Count RBC Hgb Hct MCV MCH MCHC RDW Plt Count MPV Neut % (Auto) Lymph % (Auto) [place] % (Auto) Eos % (Auto) Baso % (Auto) Nucleat RBC Rel Count Neut # (Auto) Lymph # (Auto) [place] # (Auto) Eos # (Auto) Baso # (Auto) PHA Creatinine Clear Sodium Potassium Chloride Carbon Dioxide Anion Gap BUN Creatinine Est GFR (CKD-EPI) Glucose POC Glucose 91 94 POC Glucose Comment Glu2: cleaned meter Glu2: cleaned meter Calcium Iron TIBC Iron Saturation Transferrin Ferritin Total Bilirubin AST ALT Alkaline Phosphatase Total Creatine Kinase 28 L Troponin I High Sens 84.2 H* Total Protein Albumin Globulin Albumin/Globulin Ratio Vitamin B12 Folate Slides for Path Review 07/20/23 07/20/23 07/20/23 04:50 08:04 11:50 Corrected WBC 6.4 Uncorrected WBC Count 6.4 RBC 2.57 L Hgb 8.8 L Hct 26.6 L MCV 103.4 H MCH 34.3 MCHC 33.2 RDW 15.6 H Plt Count 117 L MPV 10.5 H Neut % (Auto) 75.5 Lymph % (Auto) 13.3 [place] % (Auto) 6.6 Eos % (Auto) 3.6 Baso % (Auto) 1.0 Nucleat RBC Rel Count 0.3 Neut # (Auto) 4.8 Lymph # (Auto) 0.9 L [place] # (Auto) 0.4 Eos # (Auto) 0.2 Baso # (Auto) 0.1 PHA Creatinine Clear 64.61 Sodium 138 Potassium 3.6 Chloride 96 L Carbon Dioxide 36.4 H Anion Gap 9.2 BUN 15 Creatinine 1.03 Est GFR (CKD-EPI) > 60.0 Glucose 114 H POC Glucose 138 136 POC Glucose Comment Calcium 9.3 Iron 73 TIBC 375 Iron Saturation 19.5 L Transferrin 268 Ferritin 78.5 Total Bilirubin 0.6 AST 14 ALT 7 Alkaline Phosphatase 69 Total Creatine Kinase Troponin I High Sens 172.2 H* Total Protein 6.4 Albumin 3.3 L Globulin 3.1 Albumin/Globulin Ratio 1.1 Vitamin B12 210 Folate 4.8 L Slides for Path Review Ordered path review Therapy Recommendations Therapy Recommendations: OT Recommendations OT Recommended Discharge Correction Facility Location PT Recommendations PT Recommended Discharge Correction Facility Location PT Recommended Services at Physical Therapy,Occupational Therapy,13/09 Discharge Supervision A&P - Family Practice (1) CHF exacerbation: (2) HTN (hypertension): (3) COPD (chronic obstructive pulmonary disease): (4) Anxiety: (5) Type 2 diabetes mellitus with hyperglycemia, without long-term current use of insulin: (6) Obstructive sleep apnea: (7) Chest pain: (8) Acute coronary syndrome: (9) Macrocytic anemia: Plan Continue with current therapy per cardiology and continue with IV Lasix for now. Discharge planning for tomorrow as this is when patient can get a ride and he needs to be monitored overnight to make sure that his hematuria resolves and he remained stable. He will follow-up with hematology and cardiology in the outpatient. Will start him on folic acid and oral replacement. Had a long conversation with him regarding [facility] facility versus home with outpatient home health. I strongly recommended that he go to a ch[facility] facility as he is very weak and has a high risk of readmission and doing poorly if he goes straight home even with home health. Patient is adamantly refusing chcf facility and he understands the risks of going home. He does state that he has a friend that can come be with him and he feels he will be ready for discharge tomorrow which I agree with. Documented By: Husam Taylor DO 07/20/23 121 3 Signed By: <Electronically signed by Husam Taylor DO> 07/20/23 1220 [facility] Work Phone: 1(175) 583-981705-29-2024 Progress note Author Phil Owens [facility] July 20, 2023 10:52am Note Date/Time July 20, 2023 10:52 am [facility] [address] [place] [address] Cardiology Progress Note Signed Patient: Brian Love MR#: [id number] : 1950 Acct:[id number] Age/Sex: 73 / M Adm Date: 4 Loc: Room: [address] [place] [address] Type: ADM IN Attending Dr: Husam Taylor DO Copies to: ~ Date of Service: 07/20/2023 Subjective Principal diagnosis: Acute coronary syndrome Interval history: Patient seen postop day #1 following complex PCI by Dr. Ledezma. Patient had anuncomplicated procedure and postprocedural course. Stable. He now notes no chest discomfort or dyspnea. Patient had been having symptoms for several months prior to presentation. We feel and her believe that the PCI performed yesterday will mitigate the symptoms. I reviewed the patient's medical regimen with him and emphasized the importance of DAPT. He understands this will include aspirin and Brilinta. His other medical regimen can be continued and resumed as before. Exam Physical Exam Vital Signs: Temp Pulse Resp BP Pulse Ox O2 Del Method O2 Flow Rate 98.6 F 68 18 116/65 98 Nasal Cannula 3 07/20/23 08:00 07/20/23 08:00 07/20/23 08:00 07/20/23 08:00 07/20/23 08:00 07/20/23 08:00 07/20/23 08:00 HEENT Head: normal to inspection Ears: hearing grossly normal bilaterally Nose: external nose normal and nares normal Face and sinus: normal facial exam Mouth: oral mucosae normal and tongue normal Eyes Conjunctivae: conjunctivae normal Sclera: sclerae normal Neck Neck: normal visual inspection Carotids: normal carotid upstroke Lymphatic: no lymphadenopathy noted Chest Chest palpation & inspection: normal inspection of the chest Resp Effort & Inspection: normal respiratory effort Auscultation: clear to auscultation bilaterally Cardio Rate: regular rate Rhythm: regular rhythm Heart Sounds: S1 normal and S2 normal GI Inspection: normal to inspection Palpation: soft Skin General: no rashes or lesions noted Neuro General: patient alert, patient awake and patient oriented x3 Cognition: normal cognition Motor: muscle tone normal throughout Sensory Exam: no sensory deficits noted Objective Labs 07/20/23 04:50 07/20/23 04:50 Labs: Laboratory Results - last 24 hr 07/19/23 07/19/23 07/19/23 11:44 13:15 18:54 Corrected WBC Uncorrected WBC Count RBC Hgb Hct MCV MCH MCHC RDW Plt Count MPV Neut % (Auto) Lymph % (Auto) [place] % (Auto) Eos % (Auto) Baso % (Auto) Nucleat RBC Rel Count Neut # (Auto) Lymph # (Auto) [place] # (Auto) Eos # (Auto) Baso # (Auto) PHA Creatinine Clear Sodium Potassium Chloride Carbon Dioxide Anion Gap BUN Creatinine Est GFR (CKD-EPI) Glucose POC Glucose 100 91 POC Glucose Comment Glu2: cleaned meter Calcium Iron TIBC Iron Saturation Transferrin Ferritin Total Bilirubin AST ALT Alkaline Phosphatase Total Creatine Kinase 28 L Troponin I High Sens 84.2 H* Total Protein Albumin Globulin Albumin/Globulin Ratio Vitamin B12 Folate 07/19/23 07/20/23 07/20/23 20:13 04:50 08:04 Corrected WBC 6.4 Uncorrected WBC Count 6.4 RBC 2.57 L Hgb 8.8 L Hct 26.6 L MCV 103.4 H MCH 34.3 MCHC 33.2 RDW 15.6 H Plt Count 117 L MPV 10.5 H Neut % (Auto) 75.5 Lymph % (Auto) 13.3 [place] % (Auto) 6.6 Eos % (Auto) 3.6 Baso % (Auto) 1.0 Nucleat RBC Rel Count 0.3 Neut # (Auto) 4.8 Lymph # (Auto) 0.9 L [place] # (Auto) 0.4 Eos # (Auto) 0.2 Baso # (Auto) 0.1 PHA Creatinine Clear 64.61 Sodium 138 Potassium 3.6 Chloride 96 L Carbon Dioxide 36.4 H Anion Gap 9.2 BUN 15 Creatinine 1.03 Est GFR (CKD-EPI) > 60.0 Glucose 114 H POC Glucose 94 138 POC Glucose Comment Glu2: cleaned meter Calcium 9.3 Iron 73 TIBC 375 Iron Saturation 19.5 L Transferrin 268 Ferritin 78.5 Total Bilirubin 0.6 AST 14 ALT 7 Alkaline Phosphatase 69 Total Creatine Kinase Troponin I High Sens 172.2 H* Total Protein 6.4 Albumin 3.3 L Globulin 3.1 Albumin/Globulin Ratio 1.1 Vitamin B12 210 Folate 4.8 L A&P - Cardiology (1) Coronary artery disease involving [place] coronary artery: Assessment/Problem Details: Patient presented with unstable progression of his coronary disease with acute coronary syndrome. He was found of left main trunk lesion extending into the circumflex. He was fortuitously intervened upon in an uncomplicated fashion. His postprocedural course has been uneventful. Qualifiers: [place] vs. transplanted heart: [place] heart Associated angina: with unstable angina Qualified Code(s): I25.110 - Atherosclerotic heart disease of [place] coronary artery with unstable angina pectoris Code(s): I25.10 - Atherosclerotic heart disease of [place] coronary artery without angina pectoris (2) Acute coronary syndrome: Assessment/Problem Details: As above. Erupted DAPT for a year. This was explained to him by Dr. Ledezma after the procedure. Code(s): I24.9 - Acute ischemic heart disease, unspecified Plan Resume home regimen DAPT consisting of aspirin 81 mg a day and Brilinta 90 mg twice daily. Suitable for discharge. He does have some transportation logistical issues. Documented By: Phil Owens MD [id number] Signed By: <Electronically signed by MD Phil Owens> 07/20/23 1054 [facility] Work Phone: 1(519) 844-308005-28-2024 Procedure [facility]05-28-2024 Procedure [facility]05-28-2024 Consult note Author Mani Gibbons [facility] July 19, 2023 10:50am Note Date/Time July 19, 2023 10:50 am [facility] [address] [place] [address] Med Onc/Hem Consult Note Signed Patient: Brian Love MR#: [id number] : 1950 Acct:[id number] Age/Sex: 73 / M Adm Date: 4 Loc: 3T Room: [address] [place] [address] Type: ADM IN Attending Dr: Husam Taylor DO Copies to: Husam Taylor, DO Mani Gibbons, KALEB, DO~ CONSULT DATE: 07/19/2023 REQUESTING PROVIDER: Husam Taylor DO HISTORY OF PRESENT: 73-year-old male. Presented [facility] emergency room with intermittent chest pain on exertion over a few months time. Also increasing shortness of breath. Baseline COPD on 2 L of oxygen, hypertension, type 2 diabetes, gastroesophageal reflux disease, CHF, gout, sleep apnea with use of CPAP, hyperlipidemia, anxiety, depression, history of recurrent renal stones. Outpatient medications include aspirin, simvastatin, metoprolol, lisinopril, pioglitazone, metformin, paroxetine. Coronary artery disease with a CABG in 2007. Chest x-ray showed a pleural effusion and elevated BNP and elevated troponins. Denies fevers, sweats, chills, weight loss recent. In the [facility] emergency room his hemoglobin was 8.5. He denies any history of bleeding or melena. [facility] and given diuretics, cardiology consult. Hematology consult placed for pancytopenia labs from July 19, 2023 with white blood cell count of 6.3 with normal white blood cell differential, hemoglobin of9.1 with an MCV of 103.5. Platelet count is 113,000. Labs also suggest normal liver function studies, normal total protein and albumin, creatinine of 1.06. He did have some labs in 2019 and 2020 in our system which had suggested mild anemia in the past as well. His MCV's were as high as 103 in 2019 as well. In 2019 and 2019 his platelets trended between 170 and 220. [facility] Medical History (Updated 07/19/23 @ 10:50 by Mani Gibbons II, DO) Macrocytic anemia COPD (chronic obstructive pulmonary disease) Anxiety Type 2 diabetes mellitus with hyperglycemia, without long-term current use of insulin Spondylosis of lumbosacral region without myelopathy or radiculopathy Psychophysiological insomnia Other chronic pain Obstructive sleep apnea Mucopurulent chronic bronchitis Mixed hyperlipidemia Hernia GERD with esophagitis Erectile dysfunction Dependence on supplemental oxygen Coronary artery disease involving [place] coronary artery Chronic respiratory failure with hypoxia Aneurysm CHF (congestive heart failure) Anxiety Arthritis Gout Cataracts, bilateral Sleep apnea with use of continuous positive airway pressure (CPAP) Pulmonary nodule per H&P COPD (chronic obstructive pulmonary disease) per H&P Low back pain of over 3 months duration since fall in 2018 Mccormick by, chemical battery acid left arm Osteoarthritis Renal calculi Depression with anxiety Myocardial infarction 2007 Hyperlipidemia HTN (hypertension) CAD (coronary artery disease) Anemia Surgical History (Updated 04/18/23 @ 07:55 by Silke Varghese LPN) History of repair of left rotator cuff History of coronary artery bypass graft Stented coronary artery S/P left rotator cuff repair History of umbilical hernia repair History of AAA (abdominal aortic aneurysm) repair with second surgery for post-op bleeding History of lithotripsy S/P CABG x 3 2007 Family History Father Diabetes Heart disease Brother Heart disease Diabetes Mother Heart disease Diabetes Brother Diabetes Legacy FamHx Relation: Brother(s) Heart disease Legacy FamHx Relation: Brother(s) Father Diabetes Heart disease Mother Heart disease Diabetes Sister Diabetes Heart disease Social History Smoking Status: Never smoker Substance Use Type: None 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 Allergies No Known Allergies Allergy (Verified 02/17/21 10:19) Home Medications aspirin 81 mg tablet,delayed release (Aspir-) 81 mg PO DAILY [place] prevention 07/01/17 [History Confirmed 07/18/23] simvastatin 40 mg tablet 40 mg PO QHS hyperlipidemia 12/04/18 [History Confirmed 07/18/23] nitroglycerin 0.4 mg sublingual tablet 0.4 mg sublingual Q5-15M PRN Chest Pain 03/21/19 [History Confirmed 07/18/23] albuterol sulfate 2.5 mg/3 mL (0.083 %) solution for nebulization 2.5 mg inhalation TID PRN Shortness Of Breath 07/26/19 [History Confirmed 07/18/23] blood sugar diagnostic [Glucometer Encore Test] 04/18/23 [History Confirmed 07/18/23] blood sugar diagnostic [Pharmacist Choice] 04/18/23 [History Confirmed 07/18/23] oxygen-air delivery systems [PV Classic Oxygen Concentrator] 04/18/23 [History Confirmed 07/18/23] metoprolol tartrate 25 mg tablet 12.5 mg PO BID 05/10/23 [History Confirmed 07/18/23] lisinopril 2.5 mg tablet 2.5 mg PO DAILY 90 days #90 tabs 06/07/23 [Rx Confirmed 07/18/23] pioglitazone 30 mg tablet 30 mg PO DAILY 90 days #90 tabs 06/07/23 [Rx Confirmed 07/18/23] metformin 750 mg tablet,extended release 24 hr See Rx Instructions .Route .COMPLEX #90 tabs 07/04/23 [Rx Confirmed 07/18/23] paroxetine HCl 10 mg tablet 10 mg PO DAILY 90 days #90 tabs 07/15/23 [Rx Confirmed 07/18/23] Exam Physical Exam Vital Signs: Temp Pulse Resp BP Pulse Ox O2 Del Method O2 Flow Rate 98.1 F 76 18 136/83 99 Room Air 3 07/19/23 07:38 07/19/23 07:38 07/19/23 07:38 07/19/23 07:38 07/19/23 07:38 07/19/23 07:38 07/19/23 01:58 Narrative: PHYSICAL EXAMINATION ECOG PS:0 General : patient is alert and oriented to person place and time, no acute distress. Neck: no JVD or thyromegaly. Lymph: no cervical, supraclavicular, axillary adenopathy. Heart: regular rate and rhythm no murmurs rubs or gallops. Abdomen: soft, nontender,, nondistended, no hepatosplenomegaly. Lungs: clear to auscultation bilaterally. No wheezes, rales, rhonchi. Extremities: no clubbing cyanosis 2+ bilateral lower extrem edema. LABS 07/19/23 06:31: POC Glucose 114 07/19/23 06:02: Corrected WBC 6.3, Uncorrected WBC Count 6.3, RBC 2.69 L, Hgb 9.1 L, Hct 27.8 L, MCV 103.5 H, MCH 33.9, MCHC 32.8, RDW 16.3 H, Plt Count 113 L, MPV 10.5 H, Neut % (Auto) 66.0, Lymph % (Auto) 22.9, [place] % (Auto) 6.8, Eos %(Auto) 2.9, Baso % (Auto) 1.4, Nucleat RBC Rel Count 0.3, Neut # (Auto) 4.1, Lymph # (Auto) 1.4, [place] # (Auto) 0.4, Eos # (Auto) 0.2, Baso # (Auto) 0.1, PHA Creatinine Clear 62.79, Sodium 140, Potassium 4.3, Chloride 99, Carbon Dioxide 37.5 H, Anion Gap 7.8, BUN 17, Creatinine 1.06, Est GFR (CKD-EPI) > 60.0, Glucose 103 H, Calcium 9.2, Magnesium 1.6 L, Total Bilirubin 0.6, AST 14, ALT 7,Alkaline Phosphatase 78, B-Natriuretic Peptide 438.0 H, Total Protein 6.6, Albumin 3.6, Globulin 3.0, Albumin/Globulin Ratio 1.2 07/19/23 00:59: Total Creatine Kinase 30, Troponin I High Sens 110.3 H* 07/18/23 20:36: POC Glucose 130 07/18/23 20:07: Total Creatine Kinase 32, Troponin I High Sens 101.3 H* 07/18/23 16:41: POC Glucose 170, POC Glucose Comment Glu2: cleaned meter 07/18/23 16:10: Total Creatine Kinase 34, Troponin I High Sens 106.1 H* 07/18/23 14:33: Total Creatine Kinase 35, Troponin I High Sens 114.8 H* Assessment & Plan (1) Macrocytic anemia: Code(s): D53.9 - Nutritional anemia, unspecified Plan Anemia and thrombocytopenia. No B symptoms or other findings to suggest leukemia/lymphoma. Normal white blood cells. Normal blood cell differential. Anemia is macrocytic, longstanding, existed in 2019 as well. Evaluate for vitamin B12, folate, iron panel, methylmalonic acid. Will send peripheral smear for pathology review. Will send erythropoietin and sedimentation rate. Will check paraprotein evaluation as well. Normal colonoscopy in 2021 We will follow-up with him as an outpatient, potentially has some occult liver disease versus underlying bone marrow disease. Unfortunately these are not easyto differentiate without biopsy of the potentially affected organ. No Active Chemotherapy Documented By: Mani Gibbons II, DO 07/18 1024 Signed By: <Electronically signed by Mani Gibbons II, DO> 07/19/23 [facility] Work Phone: [phone] [phone] History and physical note Author Husam [facility] July 19, 2023 7:34am Note Date/Time July 19, 2023 7:34a m [facility] [address] [place] [address] Family Practice History&Phys Signed Patient: Brian Love MR#: [id number] : 1950 Acct:[id number] Age/Sex: 73 / M Adm Date: 4 Loc: Room: [address] [place] [address] Type: ADM IN Attending Dr: Husam Taylor DO Copies to: Husam Taylor DO~ Date of Service: 07/19/2023 HPI History of Present Illness Chief complaint: Chest pain with exertion HPI: Mr. Love is a 73 year old male who presented to the [facility] emergency roomfor a couple months of chest pain with exertion that was progressing. He also complained of some increasing shortness of breath. Patient is on 2 to 3 L nasalcannula at baseline related to his longstanding COPD. He also has hypertension,type II diabetes, known coronary disease with a CABG in 2007. In the [facility] emergency room patient had a full workup to include a chest x-ray and EKG and labs. Chest x-ray showed left- sided pleural effusion and labs showed an elevated BNP over 1400 as well as an elevated troponin of 144 and a repeat of 151. Because patient's cardiology is [facility] and his acute coronary complaints it was felt that he should be transferred to [facility]. EKG did not show any acute coronary syndrome. Patient states that when he is resting he does not have any chest pain or increasing shortness of breath. He denies any coughing, fevers or chills, nausea or vomiting. Patient states he has been taking his medications as typical. He has not been keeping a low-salt or good diabetic diet per him. Of note in the [facility] ER patient's hemoglobin was 8.5. He denies any recent history of bleeding. Patient's vitals here have been stable as they were in the [facility] ER. [facility] contacted cardiology here at [facility] who agreed that he should have further workup. Review of Systems Review of Systems All other systems reviewed & are negative unless noted below or in HPI [facility] Medical History (Updated 07/19/23 @ 07:32 by Husam Taylor DO) COPD (chronic obstructive pulmonary disease) Anxiety Type 2 diabetes mellitus with hyperglycemia, without long-term current use of insulin Spondylosis of lumbosacral region without myelopathy or radiculopathy Psychophysiological insomnia Other chronic pain Obstructive sleep apnea Mucopurulent chronic bronchitis Mixed hyperlipidemia Hernia GERD with esophagitis Erectile dysfunction Dependence on supplemental oxygen Coronary artery disease involving [place] coronary artery Chronic respiratory failure with hypoxia Aneurysm CHF (congestive heart failure) Anxiety Arthritis Gout Cataracts, bilateral Sleep apnea with use of continuous positive airway pressure (CPAP) Pulmonary nodule per H&P COPD (chronic obstructive pulmonary disease) per H&P Low back pain of over 3 months duration since fall in 2017 Mccormick by, chemical battery acid left arm Osteoarthritis Renal calculi Depression with anxiety Myocardial infarction 2007 Hyperlipidemia HTN (hypertension) CAD (coronary artery disease) Anemia Surgical History (Updated 04/18/23 @ 07:55 by Silke Varghese LPN) History of repair of left rotator cuff History of coronary artery bypass graft Stented coronary artery S/P left rotator cuff repair History of umbilical hernia repair History of AAA (abdominal aortic aneurysm) repair with second surgery for post-op bleeding History of lithotripsy S/P CABG x 3 2007 Family History Father Diabetes Heart disease Brother Heart disease Diabetes Mother Heart disease Diabetes Brother Diabetes Legacy FamHx Relation: Brother(s) Heart disease Legacy FamHx Relation: Brother(s) Father Diabetes Heart disease Mother Heart disease Diabetes Sister Diabetes Heart disease Social History Smoking Status: Never smoker Substance Use Type: None 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 Medications and Allergies Allergies No Known Allergies Allergy (Verified 02/17/21 10:19) Home Medications aspirin 81 mg tablet,delayed release (Aspir-) 81 mg PO DAILY [place] prevention 07/01/17 [History Confirmed 07/18/23] simvastatin 40 mg tablet 40 mg PO QHS hyperlipidemia 12/04/18 [History Confirmed 07/18/23] nitroglycerin 0.4 mg sublingual tablet 0.4 mg sublingual Q5-15M PRN Chest Pain 03/21/19 [History Confirmed 07/18/23] albuterol sulfate 2.5 mg/3 mL (0.083 %) solution for nebulization 2.5 mg inhalation TID PRN Shortness Of Breath 07/26/19 [History Confirmed 07/18/23] blood sugar diagnostic [Glucometer Encore Test] 04/18/23 [History Confirmed 07/18/23] blood sugar diagnostic [Pharmacist Choice] 04/18/23 [History Confirmed 07/18/23] oxygen-air delivery systems [PV Classic Oxygen Concentrator] 04/18/23 [History Confirmed 07/18/23] metoprolol tartrate 25 mg tablet 12.5 mg PO BID 05/10/23 [History Confirmed 07/18/23] lisinopril 2.5 mg tablet 2.5 mg PO DAILY 90 days #90 tabs 06/07/23 [Rx Confirmed 07/18/23] pioglitazone 30 mg tablet 30 mg PO DAILY 90 days #90 tabs 06/07/23 [Rx Confirmed 07/18/23] metformin 750 mg tablet,extended release 24 hr See Rx Instructions .Route .COMPLEX #90 tabs 07/04/23 [Rx Confirmed 07/18/23] paroxetine HCl 10 mg tablet 10 mg PO DAILY 90 days #90 tabs 07/15/23 [Rx Confirmed 07/18/23] Exam Physical Exam Vital Signs: Temp Pulse Resp BP Pulse Ox O2 Del Method O2 Flow Rate 98.1 F 69 18 127/70 96 Room Air 3 07/18/23 20:46 07/19/23 04:44 07/19/23 04:44 07/19/23 04:44 07/19/23 04:44 07/19/23 04:44 07/19/23 01:58 Const General: cooperative, comfortable and no acute distress Nutritional Appearance: obese centrally HEENT Head: normocephalic and atraumatic Ears: hearing grossly normal bilaterally Nose: nares normal Mouth: oral mucosae normal and moist mucous membranes Throat: posterior oropharynx normal Eyes Pupils: PERRL EOM: EOM intact bilaterally Neck Carotids: no bruits Lymphatic: no lymphadenopathy noted Chest Chest palpation & inspection: normal inspection of the chest and no tenderness Resp Effort & Inspection: no audible wheezes, no cough, no grunting and other (Slightincreased work of breathing) Auscultation: crackles on the left at the base, no rales, no rhonchi and no wheezes Cardio Jugular venous pressure: no JVD Rate: regular rate Rhythm: regular rhythm Pulses: radial pulses present bilaterally 1+ and dorsalis pedis present bilaterally 1+ GI Inspection: obesity Palpation: soft Percussion: normal to percussion Auscultation: normal bowel sounds Musc Cervical Spine: normal cervical lordosis Thoracic/Lumbar Spine: thoracic and lumbar spine normal to inspection Skin Rashes: no rashes Wounds: no wounds Neuro General: patient alert, patient awake and patient oriented x3 Cranial Nerves: CN's II-XII intact bilaterally Cognition: normal cognition Speech: speech normal Extrem General: no calf tenderness and edema Laterality: bilaterally Severity: pitting and 1+ Psych Mood: congruent mood Affect: normal affect Speech and Movement: speech and movement normal Attitude: cooperative Thought Process: normal Thought Content: normal Insight: insight good Judgment: judgment good GRANT Risk Score GRANT Risk Score Predictor Historical: Age > 65 Years Old, 3 or more Risk Factors: FHx,HTN,elevated cholesterol,DM,active smoker and ASA use in Past 7 Days Presentation: Recent (>/=24hr) Angina and Increased Cardiac Marker Score Risk Score (0-7): 5 Results - Hospitalist H&P Lab Results Labs: Laboratory Last Values Corrected WBC 6.3 X10E3/uL (4.1-10.5) 07/19/23 06:02 Uncorrected WBC Count 6.3 x10E3/uL (4.1-10.5) 07/19/23 06:02 RBC 2.69 X10E6/uL (3.90-5.60) L 07/19/23 06:02 Hgb 9.1 g/dL (13.0-17.0) L 07/19/23 06:02 Hct 27.8 % (38.8-50.0) L 07/19/23 06:02 MCV 103.5 fl (83.5-101) H 07/19/23 06:02 MCH 33.9 pg (27.5-35.2) 07/19/23 06:02 MCHC 32.8 g/dL (32.5-35.6) 07/19/23 06:02 RDW 16.3 % (12.0-14.8) H 07/19/23 06:02 Plt Count 113 x10E3/uL (150-450) L 07/19/23 06:02 MPV 10.5 fl (6.6-10.1) H 07/19/23 06:02 Neut % (Auto) 66.0 % (.) 07/19/23 06:02 Lymph % (Auto) 22.9 % (.) 07/19/23 06:02 [place] % (Auto) 6.8 % (.) 07/19/23 06:02 Eos % (Auto) 2.9 % (.) 07/19/23 06:02 Baso % (Auto) 1.4 % (.) 07/19/23 06:02 Nucleat RBC Rel Count 0.3 /100 WBC (0-0.5) 07/19/23 06:02 Neut # (Auto) 4.1 x10E3/uL (1.8-7.7) 07/19/23 06:02 Lymph # (Auto) 1.4 x10E3/uL (1.00-4.8) 07/19/23 06:02 [place] # (Auto) 0.4 x10E3/uL (0.0-0.8) 07/19/23 06:02 Eos # (Auto) 0.2 x10E3/uL (0.0-0.45) 07/19/23 06:02 Baso # (Auto) 0.1 x10E3/uL (0.0-0.2) 07/19/23 06:02 POC Glucose 114 mg/dl 07/19/23 06:31 POC Glucose Comment Glu2: cleaned meter 07/18/23 16:41 Total Creatine Kinase 30 U/L (30-223) 07/19/23 00:59 Troponin I High Sens 110.3 pg/mL (0.0-20.0) H* 07/19/23 00:59 A&P - Family Practice (1) CHF exacerbation: (2) HTN (hypertension): (3) COPD (chronic obstructive pulmonary disease): (4) Anxiety: (5) Type 2 diabetes mellitus with hyperglycemia, without long-term current use of insulin: (6) Obstructive sleep apnea: (7) Chest pain: Plan Admit inpatient and continue IV Lasix at 40 mg. [facility] gave 20 mg. Will give daily potassium as well and monitor kidney function and labs while on IV Lasix. Consult cardiology and appreciate their input. Will continue home medicine but will stop Actos. Monitor blood sugars and sliding scale insulin for coverage. PT/OT to evaluate for discharge planning. Patient had a low hemoglobin, platelet count, and white blood cell count at [facility] and again here at [facility] therefore hematology will be consulted for pancytopenia. Patient's prior blood work back in 2019 did not show this. Patient has not beencompliant in the outpatient with getting updated labs so unclear when this started or the underlying cause of it. He has no evidence of active bleeding atthis time. Patient will be placed on fluid restrictions, salt restrictions, betty diabetic diet. Lovenox for DVT prophylaxis. Patient has not been keeping a good heart failure diet and diabetic diet at home and we discussed this. Patient will need 2 to 3 days of admission likely for diuresis and monitoring. Will cycle cardiac enzymes as well. Osteopathic Structural Exam OSE Pt. examined in the following positions (minimum of 2): Supine and Sitting Asymmetry/ Deformity of AP/Lateral Spine Exhibited:: No Deformities No soft tissue abnormalities of the musculoskeletal system were noted.: Yes Passive and active motion testing of the spine and extremities was normal.: Yes Documented By: Husam Taylor DO 07/19/23 072 4 Signed By: <Electronically signed by Husam Taylor DO> 07/19/23 [facility] Work Phone: [phone] Consult note Author [facility] July 18, 2023 6:48pm Note Date/Time July 18, 2023 4:59p m [facility] [address] [place] [address] Cardiology Consult Note Signed Patient: Brian Love MR#: [id number] : 1950 Acct:[id number] Age/Sex: 73 / M Adm Date: 4 Loc: Room: [address] [place] [address] Type: ADM IN Attending Dr: Husam Taylor DO Copies to: MD Husam Laura DO~ Cardiology HPI History of Present Illness Consult Date: 07/18/23 HPI: Mr. Love is a 73 year old male with past medical history significant for CAD status post CABG in 2007, follows with Dr. Owens, COPD on 3L home O2. He initially presented to the [facility] ER with a 1 month history of worsening dyspnea on exertion and retrosternal chest pressure. He reports the symptoms have progressively worsened in the last few days and decided to present to the ER for further evaluation. Chest pain has been responsive to Nitroglycerine. Denied orthopnea, PND or weight gain but does endorse BLE edema. No palpitationsor syncope reported. EKG on arrival showed sinus rhythm with nonspecific T wave changes. Chest x-ray was significant for large left pleural effusion. Troponin was elevated at 144; NT proBNP 1498 He received 20 mg IV Lasix and was transferred to [facility] for further management ofacute congestive heart failure and elevated troponin. Troponin here: 114-->106 Home medications: lisinopril 2.5 mg daily, Lopressor 25mg BID; PNR NTG; simvastatin 40 mg daily. Review of Systems Review of Systems All other systems reviewed & are negative unless noted below or in HPI [facility] Medical History (Updated 07/18/23 @ 13:07 by Husam Taylor DO) COPD (chronic obstructive pulmonary disease) Anxiety Type 2 diabetes mellitus with hyperglycemia, without long-term current use of insulin Spondylosis of lumbosacral region without myelopathy or radiculopathy Psychophysiological insomnia Other chronic pain Obstructive sleep apnea Mucopurulent chronic bronchitis Mixed hyperlipidemia Hernia GERD with esophagitis Erectile dysfunction Dependence on supplemental oxygen Coronary artery disease involving [place] coronary artery Chronic respiratory failure with hypoxia Aneurysm CHF (congestive heart failure) Anxiety Arthritis Gout Cataracts, bilateral Sleep apnea with use of continuous positive airway pressure (CPAP) Pulmonary nodule per H&P COPD (chronic obstructive pulmonary disease) per H&P Low back pain of over 3 months duration since fall in 2017 Mccormick by, chemical battery acid left arm Osteoarthritis Renal calculi Depression with anxiety Myocardial infarction 2007 Hyperlipidemia HTN (hypertension) CAD (coronary artery disease) Anemia Surgical History (Updated 04/18/23 @ 07:55 by Silke Varghese LPN) History of repair of left rotator cuff History of coronary artery bypass graft Stented coronary artery S/P left rotator cuff repair History of umbilical hernia repair History of AAA (abdominal aortic aneurysm) repair with second surgery for post-op bleeding History of lithotripsy S/P CABG x 3 2007 Family History Father Diabetes Heart disease Brother Heart disease Diabetes Mother Heart disease Diabetes Brother Diabetes Legacy FamHx Relation: Brother(s) Heart disease Legacy FamHx Relation: Brother(s) Father Diabetes Heart disease Mother Heart disease Diabetes Sister Diabetes Heart disease Social History Smoking Status: Never smoker Substance Use Type: None 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 Medications and Allergies Allergies No Known Allergies Allergy (Verified 02/17/21 10:19) Home Medications aspirin 81 mg tablet,delayed release (Aspir-) 81 mg PO DAILY [place] prevention 07/01/17 [History Confirmed 07/18/23] simvastatin 40 mg tablet 40 mg PO QHS hyperlipidemia 12/04/18 [History Confirmed 07/18/23] nitroglycerin 0.4 mg sublingual tablet 0.4 mg sublingual Q5-15M PRN Chest Pain 03/21/19 [History Confirmed 07/18/23] albuterol sulfate 2.5 mg/3 mL (0.083 %) solution for nebulization 2.5 mg inhalation TID PRN Shortness Of Breath 07/26/19 [History Confirmed 07/18/23] blood sugar diagnostic [Glucometer Encore Test] 04/18/23 [History Confirmed 07/18/23] blood sugar diagnostic [Pharmacist Choice] 04/18/23 [History Confirmed 07/18/23] oxygen-air delivery systems [PV Classic Oxygen Concentrator] 04/18/23 [History Confirmed 07/18/23] metoprolol tartrate 25 mg tablet 12.5 mg PO BID 05/10/23 [History Confirmed 07/18/23] lisinopril 2.5 mg tablet 2.5 mg PO DAILY 90 days #90 tabs 06/07/23 [Rx Confirmed 07/18/23] pioglitazone 30 mg tablet 30 mg PO DAILY 90 days #90 tabs 06/07/23 [Rx Confirmed 07/18/23] metformin 750 mg tablet,extended release 24 hr See Rx Instructions .Route .COMPLEX #90 tabs 07/04/23 [Rx Confirmed 07/18/23] paroxetine HCl 10 mg tablet 10 mg PO DAILY 90 days #90 tabs 07/15/23 [Rx Confirmed 07/18/23] Exam Physical Exam Vital Signs: Temp Resp BP Pulse Ox O2 Del Method O2 Flow Rate 98.1 F 20 131/76 97 Nasal Cannula 3 07/18/23 12:13 07/18/23 12:13 07/18/23 12:13 07/18/23 12:13 07/18/23 14:44 07/18/23 14:44 Narrative: GEN: AAOx3. No acute distress. Neck: No JVD. Lungs: Clear to auscultation bilaterally Heart: Regular rate and rhythm. Normal S1 and S2. 4/6 harsh crescendo decrescendo murmur Abdomen: Soft, nontender, nondistended, bowel sounds present. Extremities: 2+ BLE edema. Neuro: AAOx3. No focal deficits. Results - Cardiology Labs Lab results: Cardiac Enzymes 07/18/23 Range/Units 14:33 Total Creatine Kinase 35 (30-223) U/L Intake and Output 07/18/23 07/18/23 07/18/23 07:59 15:59 23:59 Other: Weight 111.9 kg Date of Last Bowel Movement 07/17/23 Patient Weight 07/18/23 23:59 Weight 111.9 kg A&P - Cardiology (1) CHF exacerbation: Code(s): I50.9 - Heart failure, unspecified (2) HTN (hypertension): Code(s): I10 - Essential (primary) hypertension (3) Type 2 diabetes mellitus with hyperglycemia, without long-term current use of insulin: Code(s): E11.65 - Type 2 diabetes mellitus with hyperglycemia (4) Obstructive sleep apnea: Code(s): G47.33 - Obstructive sleep apnea (adult) (pediatric) (5) Mixed hyperlipidemia: Code(s): E78.2 - Mixed hyperlipidemia (6) Coronary artery disease involving [place] coronary artery: Code(s): I25.10 - Atherosclerotic heart disease of [place] coronary artery without angina pectoris (7) COPD (chronic obstructive pulmonary disease): Code(s): J44.9 - Chronic obstructive pulmonary disease, unspecified Plan Mr. Love is a 73 year old male with past medical history significant for CAD status post CABG in 2007, follows with Dr. Owens, COPD on 3L home O2 who presented with 1 month history of worsening dyspnea on exertion and retrosternalchest pressure. EKG on arrival showed sinus rhythm with nonspecific T wave changes. Chest x-ray was significant for large left pleural effusion. Troponin was elevated at 144; NT proBNP 1498 Troponin here: 114-->106 Assessment: Acute decompensated CHF. NYHA III Atypical chest pain Hx of CAD s/p CABG in 2007 Troponin elevation flat trend-likely type II [place] in the setting of CHF. EKG without ischemic changes. No concern for ongoing ischemia Recommendations: - Hypervolemic on exam. Agree with IV lasix 40mg daily. Strict I/Os; daily weights; 2L fluid restriction. Monitor renal function. - ECHO to evaluate LV function and degree of aortic stenosis - Continue ASA, Lipitor, Lisinopril 2.5mg daily, Lopressor 12.5mg BID; PRN NTG - Will follow. Documented By: Zakia Butcher MD 07/18/231651 Signed By: <Electronically signed by Zakia Butcher MD> 07/18/23 [facility] Work Phone: 1(444) 907-470209-20-2023 Evaluation note* Encounter Date Diagnosis Assessment Notes Treatment Notes Treatment Clinical Notes Oct, Hypertension (ICD-10 - I10) Oct, Psychophysiological insomnia (ICD-10 - F51.04) Oct, Type 2 diabetes nahid itus with hyperglycemia, without long-term current use of insulin (ICD-10 - E11.65) [facility] Other 08-24-2023 Evaluation note* Encounter Date Diagnosis Assessment Notes Treatment Notes Treatment Clinical Notes Sep, Type 2 diabetes nahid itus with hyperglycemia, without long-term current use of insulin (ICD-10 - E11.65) Sep, Well adult exam (ICD -10 - Z00.00) 72-year-old male who has a few chronic medical conditions but is overall doing well except for his chronic lumbar pain. He was seeing pain management and getting tramadol as well as occasional back injections and radiofrequency ablation which was seeming to help him however he no longer sees them and needs referral to a new clock and watch hands painter. Referral given today. Patient is due for updated lab work and this was ordered today. Patient will be contacted with results. Patient is not taking pantoprazole and states his reflux is doing well without it. Patient has not been taking the hydroxyzine and states he has not been sleeping well. Patient was instructed to get back on the hydroxyzine and a refill for this was given. Patient is to follow-up in 6 months or sooner if an acute issue arises. His A1c today shows excellent control of his diabetes. Sep, Spondylosis of lumbosacral region without myelopathy or radiculopathy (ICD-10 - M47.817) Sep, Screening for prosta te cancer (ICD-10 - Z12.5) Sep, Mixed hyperlipidemia (ICD-10 - E78.2) Sep, Hypertension (ICD-10 - I10) Sep, Coronary artery dise ase involving [place] coronary artery of [place] heart without angina pectoris (ICD-10 - I25.10) Sep, Dependence on supplemental oxygen (ICD-10 - Z99.81) Sep, Psychophysiological insomnia (ICD-10 - F51.04) Sep, Anxiety (ICD-10 - F41.9) Sep, GERD with esophagiti s (ICD-10 - K21.0) Sep, Medication monitorin g encounter (ICD-10 - Z51.81) [facility] Other 08-10-2023 Evaluation note* Encounter Date Diagnosis Assessment Notes Treatment Notes Treatment Clinical Notes Sep, Hypertension (ICD-10 - I10) [facility] Other 08-07-2023 Evaluation note* Encounter Date Diagnosis Assessment Notes Treatment Notes Treatment Clinical Notes Sep, Type 2 diabetes mellitus with hyperglycemia, without long-term current use of insulin (ICD-10 - E11.65) Sep, Coronary artery disease involving [place] coronary artery of [place] heart without angina pectoris (ICD-10 - I25.10) Sep, GERD with esophagitis (ICD-10 - K21.0) [facility] Other 09-23-2022 Evaluation note* Encounter Date Diagnosis Assessment Notes Treatment Notes Treatment Clinical Notes Oct, Type 2 diabetes mellitus with hyperglycemia, without long-term current use of insulin (ICD-10 - E11.65) [facility] Other 08-29-2022 Evaluation note* Encounter Date Diagnosis Assessment Notes Treatment Notes Treatment Clinical Notes Sep, Type 2 diabetes mellitus with hyperglycemia, without long-term current use of insulin (ICD-10 - E11.65) Patient is to continue on metformin extended release 750 mg daily as well as Actos 30 mg daily. He has lost 6 and half pound since his last appointment and his A1c is significantly better down from 6.4 to 5.2. No changes with his medication regimen. Sep, Hypertension (ICD-10 - I10) Blood pressure is very well controlled today and he is to continue with his current medication regimen. Continue with metoprolol 25 mg twice daily. Sep, Mixed hyperlipidemia (ICD-10 - E78.2) Patient was encouraged to get the lab work done prior to his next appointment so we can review these results and know how he is doing. Continue with simvastatin 40 mg daily. Sep, Spondylosis of lumbosacral region without myelopathy or radiculopathy (ICD-10 - M47.817) Patient given referral to pain management and it was printed for him so he can take it to a pain specialist of his choosing. Sep, GERD with esophagitis (ICD-10 - K21.0) Patient is doing well on pantoprazole 20 mg daily and he is to continue with it. Sep, Medication monitoring encounter (ICD-10 - Z51.81) [facility] Other 07-05-2022 Evaluation note* Encounter Date Diagnosis Assessment Notes Treatment Notes Treatment Clinical Notes Aug, Type 2 diabetes mellitus with hyperglycemia, without long-term current use of insulin (ICD-10 - E11.65) [facility] Other 05-18-2022 Evaluation note* Encounter Date Diagnosis Assessment Notes Treatment Notes Treatment Clinical Notes June, Type 2 diabetes mellitus with hyperglycemia, without long-term current use of insulin (ICD-10 - E11.65) Patient is doing extremely well now that he is cut out regular pop and with the addition of Actos 30 mg daily. He is to continue with this medication. Because he still cannot get his glucometer works I will send in a new 1. His old glucometer is 3 years old. He needs to start checking his blood sugars regularly. Patient is also to continue with his metformin center 50 mg standard release daily. His microalbumin creatinine ratio is slightly elevated today we will add in low-dose lisinopril. June, Hypertension (ICD-10 - I10) Patient blood pressure is well controlled and he is to continue with Toprol 5 mg metoprolol twice daily. June, Anxiety (ICD-10 - F41.9) Patient is doing well on Paxil 10 mg daily and he is to continue with this medication. June, Screening for prostate cancer (ICD-10 - Z12.5) June, Urinary pain (ICD-10 - R30.9) Patient complains of urinary burning and left-sided flank pain for 6 to 8 months and is wondering if he is getting a reoccurrence of kidney stone. Urinalysis today does show trace leukocyte Estrace as well as a small amount of blood. He will have a KUB ordered and will also rule out a urinary tract infection with urine culture. June, Other microscopic hematuria (ICD-10 - R31.29) [facility] Other 04-27-2022 Evaluation note* Encounter Date Diagnosis Assessment Notes Treatment Notes Treatment Clinical Notes May, Anxiety (ICD-10 - F41.9) [facility] Other 02-17-2022 Evaluation note* Encounter Date Diagnosis Assessment Notes Treatment Notes Treatment Clinical Notes Mar, Type 2 diabetes mellitus with hyperglycemia, without long-term current use of insulin (ICD-10 - E11.65) Patient's diabetes is not as well-controlled as it was previously with his A1c going up today to 8.0. Patient has not been checking his blood sugars and therefore I do not want to start him on any insulin that could cause hypoglycemia or sulfonylureas. He was encouraged that he needs to bring in his meter so that we can check it to see if it is working and if not try and order him a new one. He will be started on Actos 30 mg daily to help improve his blood sugar control. We will follow-up in 3 months for reassessment. Mar, Immunization due (ICD-10 - Z23) Patient due for pneumonia vaccine and this was given to him today. Mar, Hypertension (ICD-10 - I10) Blood pressures well controlled on metoprolol 25 mg one half tab twice daily. He is to continue with this medication. Mar, Mixed hyperlipidemia (ICD-10 - E78.2) Mar, Macrocytic anemia (ICD-10 - D53.9) Patient has a history of macrocytic anemia and he will have a vitamin B12 and folate level checked. [facility] Other 01-19-2022 Evaluation note* Encounter Date Diagnosis Assessment Notes Treatment Notes Treatment Clinical Notes Feb, Type 2 diabetes mellitus with hyperglycemia, without long-term current use of insulin (ICD-10 - E11.65) [facility] Other 12-22-2021 Evaluation note* Encounter Date Diagnosis Assessment Notes Treatment Notes Treatment Clinical Notes Jan, Coronary artery disease involving [place] coronary artery of [place] heart without angina pectoris (ICD-10 - I25.10) Jan, COPD (chronic obstructive pulmonary disease) (ICD-10 - J44.9) Jan, Anxiety (ICD-10 - F41.9) Jan, Hypertension (ICD-10 - I10) [facility] Other 11-05-2021 Evaluation note* Encounter Date Diagnosis Assessment Notes Treatment Notes Treatment Clinical Notes Dec, Hypertension (ICD-10 - I10) [facility] Other 11-01-2021 Evaluation note* Encounter Date Diagnosis Assessment Notes Treatment Notes Treatment Clinical Notes Dec, Spondylosis of 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 Based on previous positive results, as well as location of pain and exam findings, patient is a candidate for repeat bilateral lumbar facet radiofrequency ablations which we will proceed with. Risks and benefits of procedure explained to patient; patient verbalizes understanding. In the meantime, we will start the patient on Tramadol 50 mg up two times daily as needed. Risks and side effects of this medication was discussed in detail with the patient who voiced understanding. Anatomy of spine discussed in detail with patient in regards to patients condition. Dec, Lumbar back pain (ICD-10 - M54.5) Dec, Other chronic pain (ICD-10 - G89.29) Dec, Intercostal pain (ICD-10 - R07.82) Patient is also voicing complaints of anterior left rib pain which he attributes to a recent fall. He denies any complaints of constant chest pain or pain with exertion. I will order an xray of the area for further evaluation. Dec, Thumb pain, right (ICD-10 - M79.644) Patient notes at the time of the fall he feels as though he may have injured his right thumb. I will order an xray of his right hand for further evaluation. Dec, Other Above note writ ten by Abram Dover CMA, Beam Saw Operator. Edited and approved by Dr. Ricardo Ladd MD. [facility] Other 10-06-2021 Evaluation note* Encounter Date Diagnosis Assessment Notes Treatment Notes Treatment Clinical Notes Nov, Anxiety (ICD-10 - F41.9) [facility] Other 10-06-2021 Evaluation note* Encounter Date Diagnosis Assessment Notes Treatment Notes Treatment Clinical Notes Nov, Type 2 diabetes mellitus with hyperglycemia, without long-term current use of insulin (ICD-10 - E11.65) Patient's diabetes is still well controlled however his A1c did elevate compared to what it was previously and it is now back to where it was around February of this year. I encourage patient to watch his diet and I suspect that this would be easier for him if he would have been able to check his blood sugar so he can keep a better handle on his dietary changes and monitoring his blood sugars based on what he is eating. He has been out of test strips and so this was refilled for him today. We will continue to monitor and if his blood sugar does not improve for next visit I would likely adjust his medication regimen. For now he is to stay on his current medication regimen. Nov, Anxiety (ICD-10 - F41.9) Patient states his anxiety is extremely well controlled with Paxil 10 mg daily and he will continue with this medicine. Nov, Erectile dysfunction, unspecified erectile dysfunction type (ICD-10 - N52.9) Patient would like to try medication for erectile dysfunction and we discussed different options. He is going to be tried on Cialis 20 mg. 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 [id number] [facility] Work Phone: History general Narrative - Reported* Type Description Date Medical History HTN Medical History COPD Medical History CAD Medical History CHF Medical History SARAH Surgical History hernia Surgical History aneurysm Surgical History Left rotator cuff surgery Surgical History CABG 2007 Hospitalization History as above [facility] Other Summary Purpose Family History No Family History Records Found Relationship Condition Age at Onset Recorded Date/T davon father Diabetes mellitus Unknown Heart disease Unknown brother Heart disease Unknown Diabetes mellitus Unknown Not Specified Heart disease Unknown brother Diabetes mellitus Unknown Unknown sister Diabetes mellitus Unknown Advance Directives No Advanced Directives Records Found Advance Directive Response Recorded Date/ Time Advance Directives Yes July 04 3:33pm Reason for Referral Reason * FU 10/[address] Ladd and was getting back injections, refer to Dr. 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) Referral Organization [facility] Referring Provider First Name Husam Referring Provider Last Name Claudia Referring Provider Specialty Family Prac mata Referred Organization [facility] Referred Provider Mike Andino Referred Address [address] [place] [phone] Referred Provider Specialty Pain Medicin e Referral Priority Routine General Notes Robyn Stacy 01:34:20 PM >referral received and faxed Clinical Notes [phone] Reason Chronic back pain Diagnosis 1 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) Referral Organization [facility] Referring Provider First Name Husam Referring Provider Last Name Claudia Referring Provider Specialty Family Prac mata Referred Organization Unknown Facility Referred Provider Specialty Pain Medicin e Referral Priority Routine General Notes Husam Taylor 01:48:27 PM > Printed referral for patient to take with him Chief Complaint and Reason for Visit Chief Complaint Amb Documentation Chest Pain Chest Pain Chest Pain Reason for Visit Acute coronary syndr ome Chest pain CHF exacerbation Macrocytic anemia Anxiety COPD (chronic obstructive pulmonary disease) Coronary artery disease involving [place] coronary artery HTN (hypertension) Mixed hyperlipidemia Obstructive sleep apnea [id number] Additional Source Comments (unrecognized sect ion and content) No Status Records FoundNo Status Records FoundNo Status Records FoundNo Status Records FoundNo Status Records FoundNo Status Records Found INFORMATION SOURCE (unrecogn ized section and content) DATE CREATED AUTHOR 05/11/2018 [facility] DATE CREATED AUTHOR AUTHOR'S ORGANIZ ATION 05/25/2018 [facility] DATE CREATED AUTHOR AUTHOR'S ORGANIZ ATION 08/16/2020 [facility] DATE CREATED AUTHOR AUTHOR'S ORGANIZ ATION 07/30/2023 [facility] DATE CREATED AUTHOR AUTHOR'S ORGANIZ ATION 07/30/2023 [facility] DATE CREATED AUTHOR AUTHOR'S ORGANIZ ATION 08/02/2023 [facility] REASON FOR VISIT (unrecogniz ed section and content) REFILL5 MONTH F/URECHECK JAKUB K PAINRefillsREFILLNo InformationNo InformationrefillrefillDischarge Letter4 month Follow upReferralLab/MedicationQuestionrequest for mriReferralREFILLNo Informationlab resultsREFILLLab results3 month f/urefillrefillMED REQUESTrefillFOLLOW UPREFILLrefillrefillrefillrefill/needs MCSAWVdosagePlease call needs rfswellnessrefillsrefillsActos contra indicationPM referralO2 SUPPLIESREFILL Care Teams (unrecognized sec tion and content) Team Status: Active Member Role Status Dates ADOLFO Rodriguez Commercial Director Active Husam Taylor , DO Primary Care Provider Active Team Status: Active Member Role Status Dates Husam Taylor , DO Primary Care Provider Active Start: May 10, 2023 Carson Doherty APRN Attending Provider Active Start: May 10, 2023 Team Status: Inactive Member Role Status Dates Husam Taylor , DO Primary Care Provi julian, Admit Provider, Attending Provider Active Start: July 18, 2023 End: July 21, 2023 Mani Gibbons II, DO Other Provider Active Start: July 18, 2023 End: July 21, 2023 Team Status: Active Member Role Status Dates Husam Taylor , DO Primary Care Provi julian, Admit Provider, Other Provider Active Start: July 18, 2023 Juju Shah RN Other Provider Active Star t: July 18, 2023 Christian Dickerson MD Other Provider Active Start: M romero 2023 Julio Cesar Mccormick MD Other Provider Active Start: July 17 Zakia Butcher MD Attending Provider, Other Provider Active Start: July 18, 2023 Team Status: Active Member Role Status Dates Husam Mcgrath Claudia , DO Primary Care Provi julian, Admit Provider, Attending Provider, Other Provider Active Start: July 19, 2023 Juju Shah RN Other Provider Active Star t: July 19, 2023 Christian Dickerson MD Other Provider Active Start: Karen jasso 2023 Julio Cesar Mccormick MD Other Provider Active Start: July 18 Zakia Butcher MD Other Provider Active Start: July 19, 2023 FOR RECORDS PERTAINING TO PATIENTS WHO ARE OR HAVE BEEN ENROLLED IN A CHEMICAL DEPENDENCY/SUBSTANCEABUSE PROGRAM, SOME INFORMATION MAY BE OMITTED. This clinical summary was aggregated from multiple sources. Caution should be exercised in using it in the provision of clinical care. This summary normalizes information from multiple sources, and as a consequence, information in this document may materially change the coding, format and clinical context of patient data. In addition, data may be omitted in some cases. CLINICAL DECISIONS SHOULD BE BASED ON THE PRIMARY CLINICAL RECORDS. [employer] provides no warranty or guarantee of the accuracy or completeness of information in this document.
[2023-08-06 13:41] LABS: Hemoglobin 7.2 g/dL (14.0-18.0)
[2023-08-06 13:54] LABS: Hematocrit 23.5 % (42.0-54.0)
== END 2023-08-06 12:14 | disposition home or self-care (01) ==
LOC: LAB 12:13
PROVIDERS: Visit Provider Student in an Organized Health Care Education/Training Program
DX: D64.9 Anemia, unspecified (principal)
CPT/HCPCS: 36415; 85014; 85018

== ENCOUNTER 2025-01-23 09:34 | Outpatient (OUT) | payer MEDICARE, MEDICAID, SELFPAY ==
--- OUTSIDE RECORDS SUMMARY | 2025-01-21 09:00 | XMS_ITS | Encounter Summary ---
Author Organization [facility] Address [address] [place] [address] Care Team Providers Care Sales Project Engineer Name Role Phone None, Provided MD Primary Care Provider Tristan Kohler MD Unavailable Reason for Visit * ReasonCommentsNew PatientPatient is here today to establish care with cardiology along with surgery clearance for left kidney stone at [facility]. Patient denies chest pain, SOB/VALERIO, palpitations/racing heart, leg swelling, fatigue. HypertensionCongestive Heart FailureAcute Coronary syndromeabdominal aortic aneurysm Encounter Details DateTypeDepartmentCare Team (Latest Contact Info)Vpmmjipncdt02/01/2025 9:00 AM ESTOffice Visit [facility] [address] [place] [address] Ponce Smi MD [address] [place] [address] Pre-op evaluation (Primary Dx); Nonrheumatic aortic valve stenosis; S/P TAVR (transcatheter aortic valve replacement); Hx of CABG Social History Tobacco UseTypesPacks/DayYears UsedDateSmoking Tobacco: NeverPassive Smoke Exposure: NeverSmokeless Tobacco: NeverAlcohol UseStandard Drinks/WeekComments Never0 (1 standard drink = 0.6 oz pure alcohol)[facility] UtilitiesAnswerDate Recorded In the past 12 months has the electric, gas, oil, or water company threatened to shut off services in your home?No11/09/2024Humiliation, Afraid, Rape, and Kick questionnaireAnswerDate RecordedWithin the last year, have you been afraid of your partner or ex-partner?No11/09/2024Emotionally AbusedNot on file11/09/2024 Physically AbusedNot on file11/09/2024Sexually AbusedNot on file11/09/2024 Overall Financial Resource Strain (CARDIA)AnswerDate RecordedHow hard is it for you to pay for the very basics like food, housing, medical care, and heating?Not very hard11/09/2024PHQ-2AnswerDate RecordedPatient Health Questionnaire-2 Score0 01/04/2025UT Safety & EnvironmentAnswerDate RecordedFear of Current or Ex-PartnerNot on file07/26/2023Emotionally AbusedNot on file07/26/2023hysically AbusedNot on file07/26/2023Sexually AbusedNot on file07/26/2023hysically or Sexually AbusedNot on file07/26/2023TransportationAnswerDate RecordedIn the past 12 months, has lack of transportation kept you from medical appointments or from getting medications?No11/09/2024Lack of Transportation (Non-Medical)Not on file 11/09/2024Housing Stability Vital SignAnswerDate RecordedIn the last 12 months, was there a time when you were not able to pay the mortgage or rent on time?No 11/09/2024Number of Times Moved in the Last YearNot on file11/09/2024t any time in the past 12 months, were you homeless or living in a detention (including now)? No11/09/2024Hunger Vital SignAnswerDate RecordedWithin the past 12 months, you worried that your food would run out before you got the money to buymore.Never true11/09/2024Ran Out of Food in the Last YearNot on file11/09/2024Sex and Gender InformationValueDate RecordedSex Assigned at BnpepWtes85/17/2025 10:45 AM EDTLegal UqdXkje2308/19/2021 9:49 PM EDTGender EnuhequeYzyn60/17/2025 10:45 AM EDT Sexual OrientationChoose not to uymwxwvu39/17/2025 10:45 AM EDTdocumented as of this encounter Last Filed Vital Signs Vital SignReadingTime TakenCommentsBlood Zvueggnd865/7312 8:36 AM EST Gupql1103 8:36 AM ESTTemperature--Respiratory Rate--Oxygen Abvxaolyaa55% 01/21/2025 8:36 AM ESTInhaled Oxygen Concentration--Javbxz92.4 kg (186 lb) 01/21/2025 8:36 AM LJMPdvxih510.4 cm (5')01/21/2025 8:36 AM ESTBody Mass Index 36.3312 8:36 AM ESTdocumented in this encounter Progress Notes * Ponce Sim MD - 01/21/2025 9:00 AM EST Subjective Patient ID: Carloz Love is a 74 y.o. male who presents for New Patient (Patient is here todayto establish care with cardiology along with surgery clearance for left kidney stone at [facility]. Patient denies chest pain, SOB/VALERIO, palpitations/racing heart, leg swelling, fatigue. ), Hypertension, Congestive Heart Failure, Acute Coronary syndrome, and abdominal aortic aneurysm. I feel good I can walk, I don't have to strong and puff Able to walk on treadmill and stair climber. Able to grocery shop, rides on a cart too lazy to walk No chest pain or SOB with activity Takes medications Planning surgery L kidney because of stone in the kidney Hypertension Congestive Heart Failure Review of Systems Gastrointestinal: Negative for blood in stool. Genitourinary: Negative for hematuria. Neurological: Negative for dizziness, seizures, syncope and light-headedness. Objective Visit Vitals BP 146/73 (BP Location: Left arm, Patient Position: Sitting) Pulse 86 Physical Exam Constitutional: Appearance: Normal appearance. He is obese. HENT: Head: Normocephalic and atraumatic. Cardiovascular: Rate and Rhythm: Normal rate and regular rhythm. No extrasystoles are present. Chest Wall: PMI is not displaced. No thrill. Pulses: Carotid pulses are 2+ on the right side and 2+ on the left side. Radial pulses are 2+ on the right side and 2+ on the left side. Dorsalis pedis pulses are 2+ on the right side and 2+ on the left side. Heart sounds: Heart sounds not distant. Murmur heard. Systolic murmur is present with a grade of 3/6. No diastolic murmur is present. No friction rub. No gallop. Pulmonary: Effort: Pulmonary effort is normal. Comments: Decreased breath sounds L base with dullness to percussion Abdominal: General: Bowel sounds are normal. Palpations: Abdomen is soft. Musculoskeletal: Right lower leg: No edema. Left lower leg: No edema. Skin: General: Skin is warm and dry. Neurological: Mental Status: He is alert and oriented to person, place, and time. Mental status is at baseline. Psychiatric: Mood and Affect: Mood normal. Behavior: Behavior normal. Thought Content: Thought content normal. EKG strips reviewed by me today: normal SR normal EKG. Assessment/Plan Mr. Love has reasonable functional capacity and is asymptomatic. EKG today normal. I have reviewed records from Dr. Ledezma and [facility]; prior CABG with patent FAULKNER to LAD and SVG to RCAwith [place] stent L main (2023) and recent TAVR aortic position for aortic stenosis with acceptable valve performance. I believe his records indicate he is well revascularized and aortic stenosis treated, thus he can undergo renal surgery with acceptable cardiovascular risk. Given dullness and decreased breath sounds L base, recommend CXR now Recommend: 1) antibiotic prophylaxis for aortic valve 2) Hold ticagrelor beginning 5-days prior to surgery and restart after surgery 3) Continue aspirin in perioperative period 4) If issues perioperatively, please contact cardiology and we will assist with his care Diagnosis Plan 1. Pre-op evaluation ECG 12 lead unit performed 2. Nonrheumatic aortic valve stenosis 3. S/P TAVR (transcatheter aortic valve replacement) 4. Hx of CABG Orders Placed This Encounter Procedures ECG 12 lead unit performed This back office order was created through the Back Office Visit Navigator section. Release to Patient: Immediately No results found for this or any previous visit (from the past 36 hours). No follow-ups on file. documented in this encounter Plan of Treatment DateTypeDepartmentCare Team (Latest Contact Info)Vknrlzoyecj29/05/2026 10:00 AM ESTFollow-Up [facility] [address] [place] [id number] Kaiser Smith, CALL CENTER ANALYST [address] [place] [id number] 02/28/2025 3:30 PM ESTHospital Encounter [facility] Main [facility] [address] [place] [phone] Betty May MD [address] [place] [address] Dr [address] [place] [phone] 02/28/2025 3:30 PM EST - 02/28/2025 5:00 PM ESTSurgery [facility] Main [facility] [address] [place] [phone] Betty May MD [address] [place] [address] Dr We[address] [place] [phone] CYSTOSCOPY, WITH LEFT STENT INSERT IF INDICATED, W 1 OR MORE OF RETRGRD PYELO, URETEROSCPY, HOLMIUMLASER LITHOTRIPSY, AND CALC BASKET EXTRACTION [06092 (CPT??)]NamePriorityAssociated DiagnosesDate/TimeCYSTOSCOPY, WITH STENT INSERT IF INDICATED, W 1 OR MORE OF RETRGRD PYELO, URETEROSCPY, HOLMIUM LASER LITHOTRIPSY, AND CALC BASKET EXTRACTION Nephrolithiasis Kidney stones 02/28/2025 3:30 PM ESTdocumented as of this encounter Procedures Procedure NamePriorityDate/TimeAssociated DiagnosisCommentsECG 12 LEAD UNIT CBEFSNUVJQwptsmx88/01/2025 8:27 AM EST Pre-op evaluation documented in this encounter Results * ECG 12 lead unit performed (01/21/2025 8:27 AM EST)Specimen (Source)Anatomical Location / LateralityCollection Method / VolumeCollection TimeReceived Time Narrative Authorizing ProviderResult TypeResult StatusChristopher Roney MDECG ORDERABLES Final Result documented in this encounter Visit Diagnoses Diagnosis Kidney stones- Primary Calculus of kidney Nephrolithiasis Calculus of kidney Pre-op evaluation- Primary Nonrheumatic aortic valve stenosis S/P TAVR (transcatheter aortic valve replacement) Hx of CABG Postsurgical aortocoronary bypass status Nephrolithiasis Calculus of kidney Kidney stones Calculus of kidney documented in this encounter Care Teams Team MemberRelationshipSpecialtyStart DateEnd Date None, Provided, PCP - General08/24/23 Tristan Barron MD [address] [place] [address] Consulting PhysicianUrology06/27/24documented as of this encounter
--- NOTE | 2025-01-23 09:36 | XR_ITS ---
The [address] [address] Patient Name: BRIAN MANDEL MRN: [id number] date: 1950 Sex: M Assigned Patient Location: [facility] Current Patient Location: [facility] Accession/Order Number: [id number] Exam Date: 01/23/2025 09:40 Report Date: 01/23/2025 10:11 At the request of: LUZ NG MD Procedure: XR chest 2V PA AND LATERAL CHEST: CLINICAL HISTORY: Status Post Transcatheter aortic valve replacement COMPARISON: 07/18/2023 Median sternotomy wires and a new prosthetic aortic valve are visualized. There is no focal parenchymal consolidation, effusion or pneumothorax. The cardiac, hilar and mediastinal silhouettes are within normal limits. There is no vascular congestion. A wedge compression fracture is seen at T12 where there is also kyphoplasty. An anchor pin is visualized at the left humeral head. XR/XR chest 2V IMPRESSION: NO ACUTE CARDIOPULMONARY ABNORMALITY. Impression dictated by: Alesia Ruggiero M.D. 01/23/2025 10:11 AM Dictation Location: [place] [address] Electronically authenticated by: [id number] Y Date: 01/23/2025 10:11
--- OUTSIDE RECORDS SUMMARY | 2025-01-23 09:36 | XMS_ITS | Clinical Summary ---
Author Organization [facility] Address [address] [place] [address] Phone Care Team Providers Care Staffing Assistant Name Role Phone Husam Taylor DO Primary Care Provider Allergies No known active allergies Medications MedicationSigDispense QuantityRefillsLast FilledStart DateEnd DateStatus PARoxetine (Paxil) 10 mg tablet Take 1 tablet (10 mg) by mouth once daily in the morning.Active metFORMIN XR (Glucophage-XR) 750 mg 24 hr tablet Take 1 tablet (750 mg) by mouth once daily in the evening. Take with meals. Do not crush, chew, or split.Active lisinopril 2.5 mg tablet Take 1 tablet (2.5 mg) by mouth once daily.Active ticagrelor (Brilinta) 90 mg tablet Take 1 tablet (90 mg) by mouth 2 times a day.Active folic acid (Folvite) 1 mg tablet Take 1 tablet (1 mg) by mouth once daily.Active albuterol 2.5 mg /3 mL (0.083 %) nebulizer solution Take 3 mL (2.5 mg) by nebulization every 8 hours if needed for wheezing.Active simvastatin (Zocor) 40 mg tablet Take 1 tablet (40 mg) by mouth once daily at bedtime.Active aspirin 81 mg EC tablet Take 1 tablet (81 mg) by mouth once daily.Active nitroglycerin (Nitrostat) 0.[address] 1 tablet (0.4 mg) under the tongue every 5 minutes if needed for chest pain.Active metoprolol succinate XL (Toprol-XL) 25 mg 24 hr tablet Indications:Coronary artery disease involving solomon coronary artery of solomon heart without angina pectoris,Hx of CABG,History of myocardial infarctionTake 1 tablet (25 mg) by mouth once daily. Do not crush or chew. 90 tablet ctive furosemide (Lasix) 20 mg tablet Indications:Essential hypertension,Congestive heart failure, unspecified HF chronicity, unspecified heart failure type (Multi)Take 1 tablet (20 mg) by mouth 2 times daily (morning and late afternoon). 180 tablet ctive dapagliflozin propanediol (Farxiga) 10 mg Take 1 tablet (10 mg) by mouth once daily.Active Active Problems ProblemNoted DateDiagnosed DateCAD (coronary artery disease)09/13/2023S/P PTCA (percutaneous transluminal coronary angioplasty)09/13/2023ortic stenosis 09/13/2023Other imjxlwwey72/23/2024Essential tbfugzgxrmth82/23/2024Mixed pznseuktzjrzrg84/23/2024Type 2 diabetes mellitus without complication, with long-term current use of mtmtywd4809/13/2023Hx of CABG09/13/2023History of myocardial yjifaaxlxx82/23/2024ongestive heart jvwggkh2709/13/2023 Social History Tobacco UseTypesPacks/DayYears UsedDateSmoking Tobacco: NeverSmokeless Tobacco: NeverAlcohol UseStandard Drinks/WeekCommentsNever0 (1 standard drink = 0.6 oz pure alcohol)Sex and Gender InformationValueDate RecordedSex Assigned at Not on fileLegal StzPsgc88/25/2022 11:36 PM ESTGender IdentityNot on fileSexual OrientationNot on file Last Filed Vital Signs Vital SignReadingTime TakenCommentsBlood Imvmjfsg35/5207 1:43 PM EDT Devsi549709/13/2023 1:43 PM EDTTemperature--Respiratory Rate--Oxygen Saturation-- Inhaled Oxygen Concentration--Weight--Height--Body Mass Index-- Plan of Treatment Health MaintenanceDue DateLast DoneCommentsCreatinine Level1950Diabetes: Hemoglobin A1C1950Diabetes: Urine Protein Nyeqrbrot72/26/1951Lipid Panel 1950Medicare Annual Wellness Visit (AWV)1950Potassium Level 1950Diabetes: Retinopathy Dszzynlys34/26/1959Hepatitis C Screening 1966DTaP/Tdap/Td Vaccines (1 - Tdap)1970Zoster Vaccines (1 of 2) 1998RSV High Risk: (Elderly (60+) or Population) (1 - 1-dose 75+ series)2023Influenza Vaccine (#1)/, 11/21/2020, 01/26/2019, Additional history existsCOVID-19 Vaccine ( season) 504/08/2020, 05/07/2020, 04/16/20202915Ipiuptqgtfttiq44/19/202512/19/2024, 02/09/2024, 11/25/2023, Additional history existsPneumococcal VaccineCompleted 04/09/2021, 02/27/2020HIB VaccinesAged OutNo longer eligible based on patient's age to complete this topicHPV VaccinesAged OutNo longer eligible based on patient's age to complete this topicHepatitis A VaccinesAged OutNo longer eligible based on patient's age to complete this topicHepatitis B VaccinesAged OutNo longer eligible based on patient's age to complete this topicIPV Vaccines Aged OutNo longer eligible based on patient's age to complete this topic Meningococcal VaccineAged OutNo longer eligible based on patient's age to complete this topicRotavirus VaccinesAged OutNo longer eligible based on patient's age to complete this topic Procedures Procedure NamePriorityDate/TimeAssociated DiagnosisCommentsECHOCARDIOGRAM 07/18/2023 from Last 3 Months or Most Recently Relevant to Health Maintenance Results * Echocardiogram (07/18/2023) Narrative 07/18/2023 Ordered by an unspecified provider. Authorizing ProviderResult TypeResult StatusGeneric Provider ScanningCV ECHO PROCEDURESFinal Result from Last 3 Months or Most Recently Relevant to Health Maintenance Insurance * Guarantor: Jujupamela CarlozAccount TypeRelation to PatientDate of BirthPhone Billing AddressPersonal/CuorxvHxok61[birth year][address] [address] Care Teams Team MemberRelationshipSpecialtyStart DateEnd Date Husam Taylor DO [address] [facility] [address] [address] [facility] Medicine09/13/23
--- OUTSIDE RECORDS SUMMARY | 2025-01-23 09:36 | XMS_ITS | Clinical Summary ---
Author Organization [facility] tem Address [id number] [address] [place] [address] Care Team Providers Care Interior Design Coordinator Name Role Phone No Pcp, No Pcp Primary Care Provider Unavailabl e Allergies No known active allergies Medications MedicationSigDispense QuantityRefillsLast FilledStart DateEnd DateStatus ticagrelor (BRILINTA) 90 mg tablet Take 1 tablet (90 mg total) by mouth every 12 (twelve) hours.Active metFORMIN XR (GLUCOPHAGE XR) 750 mg 24 hr tablet Take 1 tablet (750 mg total) by mouth nightly.Active nitroglycerin (NITROSTAT) 0.[address] 1 tablet (0.4 mg total) under the tongue every 5 (five) minutes as needed for chest pain.Active PARoxetine (PAXIL) 10 mg tablet Take 1 tablet (10 mg total) by mouth every morning.Active pioglitazone (ACTOS) 30 mg tablet Take 1 tablet (30 mg total) by mouth in the morning.11/04/2023ctive simvastatin (ZOCOR) 40 mg tablet Take 1 tablet (40 mg total) by mouth nightly.Active furosemide (LASIX) 20 mg tablet TAKE 1 TABLET BY MOUTH TWICE DAILY (IN THE MORNING and late afternoon)12/17/2023 Active cyanocobalamin 500 MCG tablet Take 1 tablet (500 mcg total) by mouth in the morning.Active metoprolol tartrate (LOPRESSOR) 25 mg tablet Take 1 tablet (25 mg total) by mouth in the morning.5Active midodrine (PROAMATINE) 5 mg tablet Take 1 tablet (5 mg total) by mouth 3 (three) times a day. 90 tablet 5Active cholecalciferol (VITAMIN D3) 1,000 units tablet Take 1 tablet (1,000 Units total) by mouth in the morning. 30 tablet 05/13/2024tive folic acid (FOLVITE) 1 mg tablet Take 1 tablet (1 mg total) by mouth in the morning. 30 tablet 05/13/2024tive hyoscyamine sulfate (LEVSIN) 0.125 mg tablet,disintegrating Indications:Ureteral stent presentPlace 1 tablet (125 mcg total) under the tongue every 4 (four) hours as needed (bladder spasms/abdominal cramping). 30 each 05/12/2024tive tamsulosin (FLOMAX) 0.4 mg capsule Take 1 capsule (0.4 mg total) by mouth nightly. 30 capsule 05/12/2024tive Active Problems ProblemNoted DateDiagnosed DateHypotension, unspecified hypotension type 05/06/2024Fall05/06/2024Sepsis with acute renal xqqgsxv0805/06/2024ute cystitis without mazggmiga81/16/0116Bucwcda20/16/2025Vitamin D uaectsrqwa35/25/2025ge- related osteoporosis with current pathological vnrfxmiz18/25/2025Pathological fracture of thoracic vertebra with delayed ckdlizc2103/14/2024Intractable back pain03/14/2024Gross zkrixovcf60/21/2025Kidney stone03/13/2024 Overview (04/10/2024): 04/10/2024: Left renal stones measuring 16 x 8 mm in some by 3 mm. Stent placed in February 2024 with sepsis Acute renal failure (ARF)03/08/2024Severe aortic dmypcrfv92/02/2024Hypotension 11/22/20230441Kcwce84/14/7421Cjwgztnvycqqxj95/01/2024KI (acute kidney injury) 09/21/2023Urinary sltnzgojc65/31/2024Leukocytes in urine09/21/2023Iron deficiency anemia secondary to inadequate dietary iron lcdoyh2209/21/2023ecurrent left pleural apxeiaal76/31/2024nxiety and ipybplwstc79/31/2024Weakness 09/21/2023ortic /23/2024ongestive heart hfgmvan8009/13/2023History of myocardial yarmcxwlyq18/23/2024cute on chronic congestive heart failure, unspecified heart failure type09/08/2023cute coronary oyrqxwcj65/03/2024 Twpqviwod49/03/2024Erectile /03/2024Mucopurulent chronic bronchitis 08/24/2023Other chronic pain08/24/2023ostconcussion sutxenfo74/03/2024 Psychophysiological pvrjinmy94/03/2024otator cuff tear arthropathy of left rwnigevg51/03/2024Spondylosis of lumbosacral region without myelopathy or ianhjfdiaxzwz53/03/3816Weeuvccdidc10/03/2024acteremia due to methicillin resistant Staphylococcus vywdoi3507/28/2023hest pain07/23/2023Macrocytic anemia 07/23/2023oronary artery disease involving kluti kaah coronary urymop4507/23/2023 Gkxuxtimgxuy15/01/4339Jkebllt57/01/2024Gastroesophageal reflux disease without iiucijzghvw82/01/2024HTN (hypertension)07/23/2023Mixed lzqdxymvviemge37/01/2024 Type 2 diabetes mellitus without complication, without long-term current use of srlgxeg9207/23/2023Weakness cwtljzpqeoc79/01/2024leural effusion, left07/23/2023 Community acquired pneumonia of left lower lobe of lung07/23/2023nxiety rpkptjpy55/06/2019Benign essential imjvkudqxptd16/06/2019Chronic diastolic congestive heart pgyhqzu4709/26/2018Chronic respiratory failure with hypoxia 09/26/2018COPD (chronic obstructive pulmonary disease)09/26/2018Major depressive kphpaxig81/06/2019Obstructive sleep apnea zqajtnqp27/06/2019Old myocardial wfxsyufnxf70/06/2019Difficulty ouyoejc0809/21/2018Generalized muscle weakness 09/21/2018Morbid (severe) obesity due to excess ojudsnta59/01/2019Pure rrjfxatjqpxumvoudhrs01/01/2019Rotator cuff tear, non-traumatic, right09/21/2018 Solitary pulmonary myqvat4009/21/2018 Immunizations ImmunizationAdministration DatesNext DueCOVID-19, mRNA, LNP-S, PF, 30mcg/0.3mL Dose04/16/2020Influenza High Dose Preservative Free IM01/26/2019Influenza, High- dose, Gfhecsqqhbmi64/01/2021Influenza, Im Trivalent Royqrtfimvav82/21/2021 Influenza, Oyfxtzmykex20/30/2017Pneumococcal Conjugate 13-Mffcet6802/27/2020 Pneumococcal Uarnhnnqwcjbhe13/17/2022Tuberculin Skin Test; Unspecified Mnoxlkpduge58/01/2019 Family History Medical HistoryRelationNameCommentsCancerFatherDiabetesFatherHeart attackFather StrokeFatherCancerMotherDiabetesMotherHeart attackMotherStrokeMotherRelationName StatusCommentsFatherDeceasedMotherDeceased Social History Tobacco UseTypesPacks/DayYears UsedDateSmoking Tobacco: NeverSmokeless Tobacco: Never Tobacco Cessation:Counseling Given: No Alcohol UseStandard Drinks/WeekCommentsNot Currently0 (1 standard drink = 0.6 oz pure alcohol)last drink 2003[facility] UtilitiesAnswerDate RecordedIn the past 12 months has the [employer], oil, or water ID90T threatened to shut off services in your home?No05/11/2024Social Connection and Isolation PanelAnswer Date RecordedIn a typical week, how many times do you talk on the phone with family, friends, or neighbors?More than three times a week05/06/2024How often do you get together with friends or relatives?Never05/06/2024How often do you attend mormon or taoism services?More than 4 times per year05/06/2024Do you belong to any clubs or organizations such as mormon groups, unions, fraternal or athletic groups, or school groups?No05/06/2024How often do you attend meetings of the clubs or organizations you belong to?Never05/06/2024re you , , , , never , or living with a partner? 05/06/2024UDIT-CAnswerDate RecordedQ1: How often do you have a drink containing alcohol?Never05/11/2024Q2: How many drinks containing alcohol do you have on a typical day when you are drinking?Patient does not drink05/11/2024Q3: How often do you have six or more drinks on one occasion?Never05/11/2024Overall Financial Resource Strain (CARDIA)AnswerDate RecordedHow hard is it for you to pay for the very basics like food, housing, medical care, and heating?Not hard at all 05/06/2024PHQ-2AnswerDate RecordedTotal Awfin330[facility] [place] of Occupational Health - Occupational Stress QuestionnaireAnswerDate RecordedDo you feel stress - tense, restless, nervous, or anxious, or unable to sleep at night because yourmind is troubled all the time - these days?Very much05/06/2024 Exercise Vital SignAnswerDate RecordedOn average, how many days per week do you engage in moderate to strenuous exercise (like a brisk walk)?0 days05/06/2024On average, how many minutes do you engage in exercise at this level?0 min 05/06/2024PRAPARE - TransportationAnswerDate RecordedIn the past 12 months, has lack of transportation kept you from medical appointments or from getting medications?No05/11/2024In the past 12 months, has lack of transportation kept you from meetings, work, or from getting things needed for daily living?No 05/11/2024Housing InstabilityAnswerDate RecordedAre you worried or concerned that in the next two months you may not have stable housing that you own, rent or stay in as a part of a household?No05/11/2024hildcareAnswerDate RecordedDo problems getting housekeeper child care make it difficult for you to work or study?No 05/06/2024EmploymentAnswerDate RecordedDo you need help finding a local career center and/or a training program?No05/06/2024Hunger ScreeningAnswerDate Recorded Within the past 12 months we worried whether our food would run out before we got money to buy more.Never True05/11/2024Within the past 12 months the food we bought just didn't last and we didn't have money to get more.Never True 05/11/2024Purpose - LifeAnswerDate RecordedI have a purpose and direction in my life.Gnbqytif47/16/2025Sex and Gender InformationValueDate RecordedSex Assigned at BirthNot on fileLegal PpjOibk6309/26/2014 12:01 PM EDTGender IdentityNot on fileSexual OrientationNot on file Last Filed Vital Signs Vital SignReadingTime TakenCommentsBlood Uwknsvyj603/67008/18/2024 10:00 PM EDT Ehvjm685008/18/2024 10:00 PM CYWFjkolfuuqra27.6 ??C (97.9 ??F)08/18/2024 9:16 PM EDTRespiratory Npsg689108/18/2024 10:00 PM EDTOxygen Evkxlzuaxh86%08/18/2024 10:00 PM EDTInhaled Oxygen Concentration--Vqztnz12.1 kg (183 lb 4.8 oz)08/18/2024 9:16 PM QLWChgygs913.4 cm (5')08/18/2024 9:16 PM EDTBody Mass Index35.8008/18/2024 9:16 PM EDT Plan of Treatment Health MaintenanceDue DateLast DoneCommentsDTaP,Tdap and Td Vaccines (1 - Tdap) 1967Zoster (Shingles) Vaccine (1 of 2)1998Fall Risk Screening 2013RSV ( or age 60+ yrs) (1 - 1-dose 75+ series)4COVID- 19 Vaccine (4 - 2024- season)/08/2020, 05/07/2020, 04/16/2020 Influenza Kttjvpp51/, 11/21/2020, 01/26/2019, Additional history existsDepression Edqsktxay45Tobacco Screening Goals GoalPatient Goal TypeAssociated ProblemsRecent ProgressPatient-Stated?Author <enter goal here> Alyson Zavala, RN Note: Evaluation of progress towards goal: Patient plans for a safe discharge home with resumption of [facility] home care. Medical Devices ImplantedTypeAreaManufacturerDevice IdentifierShelf Expiration DateModel / Serial / LotCement Bn - [id number] Implanted:Qty: 1 on 03/16/2024 by Royal Dumont Jr., MD at CementN/A: Spine LumbarMEDTRONIC SPINAL AND NFFSLMHXY91/31/[id number] / / [id number] Bn Kyphon Activos 10 10% [place] - [id number] Implanted:Qty: 1 on 03/16/2024 by Royal Dumont Jr., MD at CementN/A: Spine Lumbaruse MDTR SPIN04/20/[id number] / / [id number] Aor 23mm Edwrd Jose Cruz 3 Transcatheter Ult - [id number] - [id number] Implanted:Qty: 1 on 11/25/2023 by Henrietta Arias MD at Implant ValveN/A: Heart Aortic ValveEdmountain view campus [employer] Tcmjnnau39/16/2027 [id number] / [id number] / Stent Uret 6fr 22cm 2 Pgtl Crv Rdpq Pstnr Mfl [facility] - [id number] Implanted:Qty: 1 on 03/09/2024 by [facility]entLeft: UreterCook Medical Xalmgwjovhoa44/09/[id number] / / [id number] Insurance Advance Directives TypeDate RecordedPatient RepresentativeExplanationDurable Power of Needle Board Repairer 10/20/2023 12:09 PMDurable Power of Attorney07/23/2023 5:40 PMDPOA 07-23-23 * Full Code (Latest Code Status on File) Date ActivatedDate InactivatedComments05/11/2024 4:00 AM05/12/2024 6:34 PM * Full Code Date ActivatedDate InactivatedComments05/06/2024 8:28 AM05/11/2024 2:29 AM * Full Code Date ActivatedDate InactivatedComments03/09/2024 6:22 AM2024 3:46 PM * Full Code Date ActivatedDate TxpghrahuzhIpxljrwz61/25/2024 6:43 AM01/20/2024 2:25 PM * Full Code Date ActivatedDate RotnltggpviHdsxdzem12/1/2024 4:58 AM11/30/2023 7:16 PM Care Teams Team MemberRelationshipSpecialtyStart DateEnd Date [place] [address] [facility]
--- OUTSIDE RECORDS SUMMARY | 2025-01-23 09:36 | XMS_ITS ---
Author Organization [employer] s tem Address [id number] [address] [place] [address] Care Team Providers Care Caramel Cutter Helper Name Role Phone No Pcp, No Pcp Primary Care Provider Unavailabl e Dialysis Access Sites TypeStatusLocationPlacement DateRemoval DateHemodialysis Catheter Triple 10/05/23 Uncuffed Left Internal JugularInactiveLeft Neck (side) - Anterior / Allergies No known active allergies Medications MedicationSigDispense [...] by mouth in the morning. 30 tablet 5Active folic acid (FOLVITE) 1 mg tablet Take 1 tablet (1 mg total) by mouth in the morning. 30 tablet 5Active hyoscyamine sulfate (LEVSIN) 0.125 mg tablet,disintegrating Indications:Ureteral stent presentPlace 1 tablet (125 mcg total) under the tongue every 4 (four) hours as needed (bladder spasms/abdominal cramping). 30 each 05/12/2024tive tamsulosin (FLOMAX) 0.4 mg capsule Take 1 capsule (0.4 mg total) by mouth nightly. 30 capsule 05/12/2024tive Active Problems ProblemNoted DateDiagnosed DateHypotension, unspecified hypotension type 05/06/2024Fall05/06/2024Sepsis with acute renal qmejgrz2405/06/2024ute cystitis without mcfqhpobe84/16/2646Dvkifrs81/16/2025Vitamin D gsxmuczwjl85/25/2025ge- related osteoporosis with current pathological atmfffis01/25/2025Pathological fracture of thoracic vertebra with delayed napcorq0803/14/2024Intractable back pain03/14/2024Gross oiafkqtbo59/21/2025Kidney stone03/13/2024 Overview (04/10/2024): 04/10/2024: Left renal stones measuring 16 x 8 mm in some by 3 mm. Stent placed in February 2024 with sepsis Acute renal failure (ARF)03/08/2024Severe aortic oxyrfopj56/02/2024Hypotension 11/22/20239818Gpuua03/14/8086Kgqlqezdxaauqr14/01/2024KI (acute kidney injury) 09/21/2023Urinary zefglkmcb49/31/2024Leukocytes in urine09/21/2023Iron deficiency anemia secondary to inadequate dietary iron nnxkna58/31/2024Recurrent left pleural vsnupumu14/31/2024nxiety and gmaemairvf52/31/2024Weakness 09/21/2023ortic ghywcgke15/23/2024ongestive heart zxdmxyi4509/13/2023History of myocardial xmoshbguyw67/23/2024cute on chronic congestive heart failure, unspecified heart failure type09/08/2023cute coronary /03/2024 Txelivbna91/03/2024Erectile esffadkntao97/03/2024Mucopurulent chronic bronchitis 08/24/2023Other chronic pain08/24/2023ostconcussion aesxeinl80/03/2024 Psychophysiological /03/2024otator cuff tear arthropathy of left /03/2024Spondylosis of lumbosacral region without myelopathy or rbmonpmoftdgf23/03/5475Xwmbsixmxeh63/03/2024acteremia due to methicillin resistant Staphylococcus scfgyx3607/28/2023hest pain07/23/2023Macrocytic anemia 07/23/2023oronary artery disease involving telida coronary tbrcrm5107/23/2023 Efaratfhwvmf10/01/7704Qqpmepb57/01/2024Gastroesophageal reflux disease without xeiyumcdnnr68/01/2024HTN (hypertension)07/23/2023Mixed dimjvizjalrbvd62/01/2024 Type 2 diabetes mellitus without complication, without long-term current use of qnccsxy5507/23/2023Weakness cqvnsbtlrag65/01/2024Pleural effusion, left07/23/2023 Community acquired pneumonia of left lower lobe of lung07/23/2023nxiety rlismlxt48/06/2019Benign essential pertawqnrmlz79/06/2019Chronic diastolic congestive heart xgbrjsl5609/26/2018Chronic respiratory failure with hypoxia 09/26/2018COPD (chronic obstructive pulmonary disease)09/26/2018Major depressive gjhcfoby59/06/2019Obstructive sleep apnea zgybdwle82/06/2019Old myocardial vieknapxqf20/06/2019Difficulty dcvtywj8709/21/2018Generalized muscle weakness 09/21/2018Morbid (severe) obesity due to excess pznoltte13/01/2019Pure oziyuduiacggmiunfvva51/01/2019Rotator cuff tear, non-traumatic, right09/21/2018 Solitary pulmonary vgkwlp6109/21/2018 Immunizations ImmunizationAdministration DatesNext DueCOVID-19, mRNA, LNP-S, PF, 30mcg/0.3mL Dose04/16/2020Influenza High Dose Preservative Free IM01/26/2019Influenza, High- dose, Zqxggxnsvhia91/01/2021Influenza, Im Trivalent Gjhylizlvish65/21/2021 Influenza, Qnqtyqbevdy56/30/2017Pneumococcal Conjugate 13-Fcnxis8302/27/2020 Pneumococcal Teupbuylpfcyae68/17/2022Tuberculin Skin Test; Unspecified Ywbfxjezigz95/01/2019 Social History Tobacco UseTypesPacks/DayYears UsedDateSmoking Tobacco: NeverSmokeless Tobacco: Never Tobacco Cessation:Counseling Given: No Alcohol UseStandard Drinks/WeekCommentsNot Currently0 (1 standard drink = 0.6 oz pure alcohol)last drink 2004[facility] UtilitiesAnswerDate RecordedIn the past 12 months has the [employer], oil, or water CodeEval threatened to shut off services in your home?No05/11/2024Social Connection and Isolation PanelAnswer Date RecordedIn a typical week, how many times do you talk on the phone with family, friends, or neighbors?More than three times a week05/06/2024How often do you get together with friends or relatives?Never05/06/2024How often do you attend synagogue or methodist services?More than 4 times per year05/06/2024Do you belong to any clubs or organizations such as synagogue groups, unions, fraternal or athletic groups, or [...] and heating?Not hard at all 05/06/2024PHQ-2AnswerDate RecordedTotal Emtfs301[facility] [place] of Occupational Health - Occupational Stress QuestionnaireAnswerDate [...] part of a household?No05/11/2024hildcareAnswerDate RecordedDo problems getting child protective services specialist make it difficult for you to work [...] have a purpose and direction in my life.Gjwzqbhn54/16/2025Sex and Gender InformationValueDate RecordedSex Assigned at BirthNot on fileLegal RlrCgew5509/26/2014 12:01 PM EDTGender IdentityNot on fileSexual OrientationNot on file Last Filed Vital Signs Vital SignReadingTime TakenCommentsBlood Qcpuxusm598/6706 10:00 PM EDT Xonlv732508/18/2024 10:00 PM MKJEejlvavcyjs49.6 ??C (97.9 ??F)08/18/2024 9:16 PM EDTRespiratory Vesq650708/18/2024 10:00 PM EDTOxygen Ilsmoeskzd24%08/18/2024 10:00 PM EDTInhaled Oxygen Concentration--Yqjhwq68.1 kg (183 lb 4.8 oz)08/18/2024 9:16 PM LXDUnxobm175.4 cm (5')08/18/2024 9:16 PM EDTBody Mass Index35.8008/18/2024 9:16 PM EDT
--- OUTSIDE RECORDS SUMMARY | 2025-01-23 09:36 | XMS_ITS | Clinical Summary ---
Author Organization [facility] Healthcare Address [address] [place] [address] Care Team Providers Care Glass Lathe Operator Name Role Phone Unavailable Primary Care Provider Unavailabl e Social History Tobacco UseTypesPacks/DayYears UsedDateSmoking Tobacco: Never AssessedSex and Gender InformationValueDate RecordedSex Assigned at BirthNot on fileLegal Sex Male05/05/2022 6:51 PM EDTGender IdentityNot on fileSexual OrientationNot on file Plan of Treatment Not on file Insurance
--- OUTSIDE RECORDS SUMMARY | 2025-01-23 09:37 | XMS_ITS ---
Author Organization [facility] re Care Team Providers Care Coat Finisher Name Role Phone John Jones Unavailable Unavailable Allergies and adverse reactions No Known Allergies Care Team Name Role Address Phone Organization Dates John Jones PCP [address], [place], [address], [place] (Office): : [facility] 09/21/2018 - 09/29/2018 Immunizations Immunization Status Vaccine Details Vaccine Code CodeSystem Date Notes TB 1 Step Mantoux (PPD) completed tuberculin skin test; unspecified formulation lotNumber: [id number] expiry: 11/21/2019 Mfg: [employer] Given 0.1 ml Right Forearm intradermally 98 CVX created date: 09/21/2018 consent date: 09/21/2018 administere d date: 09/21/2018 Mental Status Section Date Assessment Total Score Description 09/28/2018 BIMS 15 cognitively int act CAM 0 No delirium ind icated PHQ-9 02 minimal depress ion 09/28/2018 BIMS 15 cognitively int act CAM 0 No delirium ind icated PHQ-9 02 minimal depress ion Insurance Providers Coverage Status Coverage Type Relationship to Subscriber Member Identifier Subscriber Identifier Group Identifier Payer Identifier and Other information Code: Code System OID:[id number] .[id number]. 5 Code System Name: Source of Payment Typology (PHDSC) Display: Managed Care (Private) Translation: Code: Code System: OID:[id number] .[id number]. 1336 Code System Name: Insurance Type Code ([id number]) Display Name: Health Maintenance Organization (HMO) Plan Problems Problem # Description Date of onset Resolved Date Code CodeSystem Concern Status 1 ANEMIA, UNSPECIFIED 09/21/[address] active 2 ANXIETY DISORDER, UNSPECIFIED 09/21/[address] active 3 BODY MASS INDEX [BMI]40.0-44.9, ADULT 09/21/[address] active 4 CHRONIC DIASTOLIC (CONGESTIVE) HEART FAILURE 09/21/[address] active 5 CHRONIC OBSTRUCTIVE PULMONARY DISEASE, UNSPECIFIED 09/21/[address] active 6 CHRONIC RESPIRATORY FAILURE WITH HYPOXIA 09/21/[address] active 7 DIFFICULTY IN WALKING, NOT ELSEWHERE CLASSIFIED 09/21/[address] active 8 ENCOUNTER FOR OTHER ORTHOPEDIC AFTERCARE 09/21/[address] active 9 ESSENTIAL (PRIMARY) HYPERTENSION 09/21/[address] active 10 HISTORY OF FALLING 09/21/[address] active 11 NURSING HOME (CURRENT) USE OF INHALED STEROIDS 09/21/[address] active 12 MAJOR DEPRESSIVE DISORDER, SINGLE EPISODE, UNSPECIFIED 09/21/[address] active 13 MORBID (SEVERE) OBESITY DUE TO EXCESS CALORIES 09/21/[address] active 14 MUSCLE WEAKNESS (GENERALIZED) 09/21/[address] active 15 OBSTRUCTIVE SLEEP APNEA (ADULT) (PEDIATRIC) 09/21/[address] active 16 OLD MYOCARDIAL INFARCTION 09/21/[address] active 17 PURE HYPERCHOLESTEROLEM IA, UNSPECIFIED 09/21/[address] active 18 SOLITARY PULMONARY NODULE 09/21/[address] active 19 UNSPECIFIED ROTATOR CUFF TEAR OR RUPTURE OF RIGHT SHOULDER, NOT SPECIFIED TRAUMATIC 09/21/[address] active Reason for Referral No Reasons for Referral Entered Social History Social History Observation Description Start Date End Date Code Code System Current Smoking Status Tobacco smoking consumption unknown 434500406 SNOMED CT Sex Assigned At Male 1950 35621-8 [facility] Gender Identity Sexual Orientation Vital Signs Code Code System Vitals Name Values and Units Timing Information 9279-1 [facility] Respiratory Rate Value=18.0 Units=/m in 09/28/2018 8462-4 [facility] Blood Pressure-Diastolic Value=79 Un its=mmHg 09/28/2018 8480-6 [facility] Blood Pressure-Systolic Ufhap=275 Un its=mmHg 09/28/2018 8310-5 [facility] Body Temperature Value=96.8 Units= F 09/28/2018 8867-4 [facility] Heart rate Value=61.0 Units=/min 09/2018 27661-6 [facility] O2 % BldC Oximetry Value=94.0 Units= % 09/28/2018 56189-7 [facility] Pain Level Value=7.0 09/28/2018 99682-7 [facility] Weight Dclmt=865.8 Units=Lbs 04/2018 8302-2 [facility] Height Value=61.0 Units=Inches 09/21/2018
--- OUTSIDE RECORDS SUMMARY | 2025-01-23 09:37 | XMS_ITS | Encounter Summary ---
Author Organization [facility] Address [address] [place] [address] Care Team Providers Care Machine Molder Squeeze Name Role Phone None, Provided Primary Care Provider Tristan Kohler MD Unavailable Encounter Details DateTypeDepartmentCare Team (Latest Contact Info)Ermobkyodxl73/25/2025Orders Only [facility] UR[facility] [address] [place] [address] Erma Quezada MA Nephrolithiasis (Primary Dx); Kidney stones Social History Tobacco UseTypesPacks/DayYears UsedDateSmoking Tobacco: NeverPassive Smoke Exposure: NeverSmokeless Tobacco: NeverAlcohol UseStandard Drinks/WeekComments Never0 (1 standard drink = 0.6 oz pure alcohol)[facility] UtilitiesAnswerDate Recorded In the past 12 [...] were you homeless or living in a care home (including now)? No11/09/2024Hunger Vital SignAnswerDate RecordedWithin the past 12 months, you worried that your food would run out before you got the money to buymore.Never true11/09/2024Ran Out of Food in the Last YearNot on file11/09/2024Sex and Gender InformationValueDate RecordedSex Assigned at DuxnjFbbj90/17/2025 10:45 AM EDTLegal IivAtbj2708/19/2021 9:49 PM EDTGender NozrwgwuZdln92/17/2025 10:45 AM EDT Sexual OrientationChoose not to lwntpscu71/17/2025 10:45 AM EDTdocumented as of this encounter Plan of Treatment DateTypeDepartmentCare Team (Latest Contact Info)Juabevboebj33/05/2026 10:00 AM ESTFollow-Up [facility] [address] [place] [phone] Kaiser Smith, [employer] MACHINE [address] [place] [address] 02/28/2025 3:30 PM ESTHospital Encounter [facility] Main Operating Room [address] [place] [address] Betty May MD [address] [place] [address] [address] [place] [address] 02/28/2025 3:30 PM EST - 02/28/2025 5:00 PM ESTSurgery [facility] Main Operating Room [address] [place] [address] Betty May MD [address] [place] [address] [place] [address] CYSTOSCOPY, WITH LEFT STENT INSERT IF INDICATED, W 1 OR MORE OF RETRGRD PYELO, URETEROSCPY, HOLMIUMLASER LITHOTRIPSY, AND CALC BASKET EXTRACTION [[id number] (CPT??)]NameTypePriorityAssociated DiagnosesOrder ScheduleUrine culture, routine MicrobiologyRoutine Nephrolithiasis Kidney stones Expected: 01/15/2025 (Approximate), Expires: 01/15/2026omprehensive metabolic panelLabRoutine Nephrolithiasis Kidney stones Expected: 01/15/2025 (Approximate), Expires: 01/15/2026BCLabRoutine Nephrolithiasis Kidney stones Expected: 01/15/2025 (Approximate), Expires: 01/15/2026NamePriorityAssociated DiagnosesDate/TimeCYSTOSCOPY, WITH STENT INSERT IF INDICATED, W 1 OR MORE OF RETRGRD PYELO, URETEROSCPY, HOLMIUM LASER LITHOTRIPSY, AND CALC BASKET EXTRACTION Nephrolithiasis Kidney stones 02/28/2025 3:30 PM ESTdocumented as of this encounter Visit Diagnoses Diagnosis Nephrolithiasis- Primary Calculus of kidney Kidney stones Calculus of kidney Kidney stones- Primary Calculus of kidney Nephrolithiasis Calculus of kidney Nephrolithiasis Calculus of kidney Kidney stones Calculus of kidney documented in this encounter Care Teams Team MemberRelationshipSpecialtyStart DateEnd Date None, Provided, PCP - General08/24/23 Tristan Barron MD [address] [place] [address] Consulting PhysicianUrology06/27/24documented as of this encounter
--- OUTSIDE RECORDS SUMMARY | 2025-01-23 09:37 | XMS_ITS | Encounter Summary ---
Author Organization [facility] Address [address] [place] [address] Care Team Providers Care Manager Endoscopy Name Role Phone None, Provided Primary Care Provider Tristan Kohler MD Unavailable Encounter Details DateTypeDepartmentCare Team (Latest Contact Info)Jfeetregzyf57/19/2025Orders Only [facility] UR[facility] [address] [place] [address] Michaela Ratliff MA Social History Tobacco UseTypesPacks/DayYears UsedDateSmoking Tobacco: NeverPassive Smoke Exposure: NeverSmokeless Tobacco: NeverAlcohol UseStandard Drinks/WeekComments Never0 (1 standard drink = 0.6 oz pure alcohol)[facility] UtilitiesAnswerDate Recorded In the past 12 [...] were you homeless or living in a fdc (including now)? No11/09/2024Hunger Vital SignAnswerDate RecordedWithin the past 12 months, you worried that your food would run out before you got the money to buymore.Never true11/09/2024Ran Out of Food in the Last YearNot on file11/09/2024Sex and Gender InformationValueDate RecordedSex Assigned at PexdgGxjx15/17/2025 10:45 AM EDTLegal AejZwmp1108/19/2021 9:49 PM EDTGender EwiaaclgGvrr29/17/2025 10:45 AM EDT Sexual OrientationChoose not to yewajqgf89/17/2025 10:45 AM EDTdocumented as of this encounter Plan of Treatment DateTypeDepartmentCare Team (Latest Contact Info)Dxkuzseiyzt62/05/2026 10:00 AM ESTFollow-Up [facility] [address] [place] [phone] Kaiser Smith, RN CLINICAL [address] [place] [address] 02/28/2025 3:30 PM ESTHospital Encounter [facility] Main Operating Room [address] [place] [phone] Betty May MD [address] [place] [address] [address] [place] [address] 02/28/2025 3:30 PM EST - 02/28/2025 5:00 PM ESTSurgery [facility] Main Operating Room [address] [place] [address] Betty May MD [address] [place] [address] [address] [place] [address] CYSTOSCOPY, WITH LEFT STENT INSERT IF INDICATED, W 1 OR MORE OF RETRGRD PYELO, URETEROSCPY, HOLMIUMLASER LITHOTRIPSY, AND CALC BASKET EXTRACTION [[id number] (CPT??)]NamePriorityAssociated DiagnosesDate/TimeCYSTOSCOPY, WITH STENT INSERT IF INDICATED, W 1 OR MORE OF RETRGRD PYELO, URETEROSCPY, HOLMIUM LASER LITHOTRIPSY, AND CALC BASKET EXTRACTION Nephrolithiasis Kidney stones 02/28/2025 3:30 PM ESTdocumented as of this encounter Visit Diagnoses Not on filedocumented in this encounter Care Teams Team MemberRelationshipSpecialtyStart DateEnd Date None, Provided, PCP - General08/24/23 Tristan Barron MD [address] [place] [address] Consulting PhysicianUrology06/27/24documented as of this encounter
--- OUTSIDE RECORDS SUMMARY | 2025-01-23 09:37 | XMS_ITS | Clinical Summary ---
Author Organization [facility] Address [address], [address] [place] [address] Care Team Providers Care Seismographer Name Role Phone Husam Taylor DO Primary Care Provider Allergies No known active allergies Medications MedicationSigDispense QuantityRefillsLast FilledStart DateEnd DateStatus FLUoxetine (PROZAC) 20 MG tablet Take 1 tablet by mouth dailyActive simvastatin (ZOCOR) 40 MG tablet Take 1 tablet by mouth nightlyActive Metoprolol Succinate 25 MG CS24 Take 12.5 mg by mouth 2 times dailyActive Cyanocobalamin (VITAMIN B 12) 500 MCG TABS Take 1 tablet by mouth dailyActive Ticagrelor (BRILINTA PO) Take 1 tablet by mouth 2 times dailyActive Active Problems ProblemNoted DateDiagnosed DiwaTgeweaced48/24/2025Acute cystitis with hematuria 02/08/2024Kidney stone02/08/2024Generalized jcamcpvp27/17/2024Electrolyte goqmpfysp30/17/2024Megaloblastic vxdrti8202/07/20246259Fuwgzwmscfj71/17/2024 Pewpnznuqnihpx78/17/2024S/P TAVR (transcatheter aortic valve replacement) 4Anemia requiring rcosrotejwyr40/06/2019Pure hypercholesterolemia 09/26/2018Body mass index 40.0-44.9, adult09/26/2018Essential hypertension, eotkbq4809/26/2018Old myocardial emdvhpjlwc57/06/2019Anxiety tvyjyftq95/06/2019 Major depressive gtddukcc35/06/2019Chronic diastolic congestive heart failure 09/26/2018Solitary pulmonary vswzgf1909/26/2018Obstructive sleep apnea (adult) (pediatric)09/26/2018Long term current use of inhaled ijjylxt7509/26/2018 Difficulty nbfslvz5209/26/2018Chronic respiratory failure with dtxwtos5209/26/2018 COPD (chronic obstructive pulmonary disease)09/26/2018Rotator cuff tear, non- traumatic, right09/26/2018Muscle weakness (generalized)09/26/2018AAA (abdominal aortic aneurysm) Encounters DateTypeDepartmentCare BxboJdksibakbua28/24/7059Fmzwsq21/23/2025 5:57 PM EDT - 11/14/2024 2:11 PM EDTHospital Encounter [facility] Unit [address] [place] [address] Micky Herrera MD Jabour, Joseph, DO Ledrick, David J, MD Gross hematuria (Primary Dx) Discharge Disposition: Home or Self Carefrom Last 3 Months Social History Tobacco UseTypesPacks/DayYears UsedDateSmoking Tobacco: NeverSmokeless Tobacco: NeverAlcohol UseStandard Drinks/WeekCommentsNever0 (1 standard drink = 0.6 oz pure alcohol)AUDIT-CAnswerDate RecordedQ1: How often do you have a drink containing alcohol?Never02/07/2024Q2: How many drinks containing alcohol do you have on a typical day when you are drinking?Patient does not drink02/07/2024Q3: How often do you have six or more drinks on one occasion?Never02/07/2024RAPARE - TransportationAnswerDate RecordedIn the past 12 months, has lack of transportation kept you from medical appointments or from getting medications?No 02/07/2024In the past 12 months, has lack of transportation kept you from meetings, work, or from getting things needed for daily living?No02/07/2024 Housing Stability Vital SignAnswerDate RecordedIn the last 12 months, was there a time when you were not able to pay the mortgage or rent on time?No11/14/2024In the past 12 months, how many times have you moved where you were living?0 11/14/2024t any time in the past 12 months, were you homeless or living in a custodial (including now)?No11/14/2024Hunger Vital SignAnswerDate RecordedWithin the past 12 months, you worried that your food would run out before you got the money to buymore.Never true11/14/2024Within the past 12 months, the food you bought just didn't last and you didn't have money to get more.Never true 11/14/2024PRAPARE - TransportationAnswerDate RecordedIn the past 12 months, has lack of transportation kept you from medical appointments or from getting medications?No11/14/2024In the past 12 months, has lack of transportation kept you from meetings, work, or from getting things needed for daily living?No 11/14/2024HC UtilitiesAnswerDate RecordedIn the past 12 months has the electric, gas, oil, or water company threatened to shut off services in your home?No11/14/2024Interpersonal Safety Domain Source: IP Abuse ScreeningAnswer Date RecordedPhysical dwpxeBfgifv27/24/2025Verbal ctkeiXxncgz21/24/2025Emotional snlizIrxhgv05/24/2025Financial pvabdLjwmre87/24/2025Sexual ffzydItxatk11/24/2025 Sex and Gender InformationValueDate RecordedSex Assigned at BirthNot on file Legal JhvDgnq6004/02/2012 2:14 PM ESTGender IdentityNot on fileSexual Orientation Not on file Last Filed Vital Signs Vital SignReadingTime TakenCommentsBlood Aoalopti530/7109 7:58 AM EDT Euqbf040511/14/2024 7:58 AM CCNRcqhvdpuznz09.2 ??C (97.2 ??F)11/14/2024 7:58 AM EDTRespiratory Eouj981811/14/2024 7:58 AM EDTOxygen Ybhpyhccsh329%11/14/2024 7:58 AM EDTInhaled Oxygen Concentration--Khsrgn06.7 kg (173 lb 9.6 oz)11/14/2024 2:15 AM RZEMyuesm320.4 cm (5')11/14/2024 2:15 AM EDTBody Mass Index33.909 2:15 AM EDT Plan of Treatment Health MaintenanceDue DateLast NxngOnjsrtutAbguik50/26/1959Depression Monitoring 1960Hepatitis C ehqdmn6303/18/1966DTaP/Tdap/Td vaccine (1 - Tdap)1967 Hepatitis A vaccine (1 of 2 - Risk 2-dose series)1967Shingles vaccine (1 of 2)1998Hepatitis B vaccine (1 of 3 - Risk 3-dose series)2008 Respiratory Syncytial Virus (RSV) or age 60 yrs+ (1 - 1-dose 75+ series)4Annual Wellness Visit (Medicare)02/07/2024Flu vaccine (#1) 510/, 11/21/2020, 01/26/2019, Additional history existsCOVID-19 Vaccine ( season)504/08/2020, 05/07/2020, 04/16/2020 Pneumococcal 50+ years WjrtbtnXizuuvhfu22/17/2022, 1Colorectal Cancer ScreenDiscontinuedFIT/FOBT: Average kqcwAhdtluenotgk84/17/2024Colonoscopy DiscontinuedFecal-DNA (Cologuard): Average riskDiscontinuedHib vaccineAged OutNo longer eligible based on patient's age to complete this topicMeningococcal (ACWY) vaccineAged OutNo longer eligible based on patient's age to complete this topicMeningococcal B vaccineAged OutNo longer eligible based on patient's age to complete this topicPolio vaccineAged OutNo longer eligible based on patient's age to complete this topicSigmoidoscopy/CT colonographyDiscontinued Procedures Procedure NamePriorityDate/TimeAssociated DiagnosisCommentsCT ABDOMEN PELVIS WO IXWXWPAMWZPP95/23/2025 10:43 PM EDT US SCROTUM W LIMITED CJEOLWZLHP03/23/2025 8:15 PM EDT MICROSCOPIC CNRVUGKDBSCrpkycf21/23/2025 6:48 PM EDT URINALYSIS WITH REFLEX TO CULTUREStat [employer] Label print11/13/2024 6:48 PM EDT CULTURE, GNRZFVrcsrsc64/23/2025 6:48 PM EDT BASIC METABOLIC PANELStat [employer] Label print11/13/2024 6:47 PM EDT CBC WITH AUTO DIFFERENTIALStat [employer] Label print11/13/2024 6:47 PM EDT BLOOD OCCULT STOOL KXAZSUZVHNWAIR11/17/2024 1:04 PM EST from Last 3 Months or Most Recently Relevant to Health Maintenance Results * CT ABDOMEN PELVIS WO CONTRAST Additional Contrast? None (11/13/2024 10:43 PM EDT)Anatomical RegionLateralityModalityAbdomen, Pelvis, HipComputed Tomography Specimen (Source)Anatomical Location / LateralityCollection Method / Volume Collection TimeReceived Time11/13/2024 11:02 PM EDT Impressions 11/13/2024 11:10 PM EDT 1. 12 x 6 mm urolith left renal pelvis. No hydronephrosis. 2. Nonobstructing nephroliths bilaterally. 3. Cirrhosis. 4. Aorto bi-iliac stent. Infrarenal abdominal aortic aneurysm measures 31 mm. 5. Cardiomegaly and prosthetic aortic valve. 6. Small bilateral pleural effusions. 7. Small hiatal hernia. 8. Bilateral fat containing inguinal hernias. 9. Compression fracture and vertebroplasty T12. Narrative 11/13/2024 11:10 PM EDT EXAMINATION: CT OF THE ABDOMEN AND PELVIS WITHOUT CONTRAST 11/13/2024 10:38 pm TECHNIQUE: CT of the abdomen and pelvis was performed without the administration of intravenous contrast. Multiplanar reformatted images are provided for review. Automated exposure control, iterative reconstruction, and/or weight based adjustment of the mA/kV was utilized to reduce the radiation dose to as low as reasonably achievable. COMPARISON: February 07, 2024 report only HISTORY: ORDERING SYSTEM PROVIDED HISTORY: abd pain, possible stone, hydronephrosis TECHNOLOGIST PROVIDED HISTORY: abd pain, possible stone, hydronephrosis Decision Support Exception - unselect if not a suspected or confirmed emergency medical condition->Emergency Medical Condition (MA) Reason for Exam: abd pain, possible stone, hydronephrosis FINDINGS: Lower Chest: Cardiomegaly and prosthetic aortic small bilateral pleural effusions. ??Heart valve. ??Calcific coronary artery disease. Organs: Nodular liver. ??Spleen normal. ??Pancreas normal. ??Adrenals normal. Gallbladder normal. ??Nonobstructing nephroliths bilaterally. ??12 x 6 mm urolith left renal pelvis. ??No hydronephrosis. GI/Bowel: . small hiatal hernia. ??Small and large bowel normal. ??Appendix normal. Pelvis: Bilateral fat containing inguinal hernias. ??Bilateral fat containing inguinal hernias. ??Debris or hemorrhage noted within the bladder dependently. Prostate calcifications noted. Peritoneum/Retroperitoneum: Aorto bi-iliac stent. ??Infrarenal abdominal aortic aneurysm measures 31 mm. ??Calcified plaque along the aorta and its branches. ??Retroaortic left renal vein. ??IVC normal. ??No pathologic lymphadenopathy. Bones/Soft Tissues: Compression fracture and vertebroplasty T12. Procedure Note Yon Vasquez MD - 11/13/2024 EXAMINATION: CT OF THE ABDOMEN AND PELVIS WITHOUT CONTRAST 11/13/2024 10:38 pm TECHNIQUE: CT of the abdomen and pelvis was performed without the administration of intravenous contrast. Multiplanar reformatted images are provided forreview. Automated exposure control, iterative reconstruction, and/or weightbased adjustment of the mA/kV was utilized to reduce the radiation dose to aslow as reasonably achievable. COMPARISON: February 07, 2024 report only HISTORY: ORDERING SYSTEM PROVIDED HISTORY: abd pain, possible stone,hydronephrosis TECHNOLOGIST PROVIDED HISTORY: abd pain, possible stone, hydronephrosis Decision Support Exception - unselect if not a suspected or confirmed emergency medical condition->Emergency Medical Condition (MA) Reason for Exam: abd pain, possible stone, hydronephrosis FINDINGS: Lower Chest: Cardiomegaly and prosthetic aortic small bilateral pleural effusions. Heart valve. Calcific coronary artery disease. Organs: Nodular liver. Spleen normal. Pancreas normal. Adrenalsnormal. Gallbladder normal. Nonobstructing nephroliths bilaterally. 12 x 6 mm urolith left renal pelvis. No hydronephrosis. GI/Bowel: . small hiatal hernia. Small and large bowel normal.Appendix normal. Pelvis: Bilateral fat containing inguinal hernias. Bilateral fatcontaining inguinal hernias. Debris or hemorrhage noted within the bladderdependently. Prostate calcifications noted. Peritoneum/Retroperitoneum: Aorto bi-iliac stent. Infrarenal abdominal aortic aneurysm measures 31 mm. Calcified plaque along the aorta andits branches. Retroaortic left renal vein. IVC normal. No pathologic lymphadenopathy. Bones/Soft Tissues: Compression fracture and vertebroplasty T12. IMPRESSION: 1. 12 x 6 mm urolith left renal pelvis. No hydronephrosis. 2. Nonobstructing nephroliths bilaterally. 3. Cirrhosis. 4. Aorto bi-iliac stent. Infrarenal abdominal aortic aneurysm measures 31mm. 5. Cardiomegaly and prosthetic aortic valve. 6. Small bilateral pleural effusions. 7. Small hiatal hernia. 8. Bilateral fat containing inguinal hernias. 9. Compression fracture and vertebroplasty T12. Authorizing ProviderResult TypeResult [facility] ORDERABLESFinal Result * US SCROTUM W LIMITED DUPLEX (11/13/2024 8:15 PM EDT)Anatomical Region LateralityModalityTestesUltrasoundSpecimen (Source)Anatomical Location / LateralityCollection Method / VolumeCollection TimeReceived Time11/13/2024 9:25 PM EDT Impressions 11/13/2024 9:28 PM EDT Unremarkable testicular ultrasound with normal Doppler flow. Narrative 11/13/2024 9:28 PM EDT EXAMINATION: ULTRASOUND OF THE SCROTUM/TESTICLES WITH COLOR DOPPLER FLOW EVALUATION 11/13/2024 TECHNIQUE: Duplex ultrasound using B-mode/cobian scaled imaging, Doppler spectral analysis and color flow Doppler was obtained of the testicles. COMPARISON: None. HISTORY: ORDERING SYSTEM PROVIDED HISTORY: testicular pain TECHNOLOGIST PROVIDED HISTORY: testicular pain FINDINGS: Measurements: Right Testicle: 3.34 x 2.95 x 2.10 cm Left Testicle: 2.69 x 2.53 x 2.32 cm Right: Carrion Scale: The right testicle demonstrates normal homogeneous echotexture without focal lesion. ??No evidence of testicular microlithiasis. Doppler Evaluation: There is normal arterial and venous Doppler flow within the testicle. Scrotal Sac: No evidence of hydrocele. Epididymis: No acute abnormality. Left: Carrion Scale: The left testicle demonstrates normal homogeneous echotexture without focal lesion. ??No evidence of testicular microlithiasis. Doppler Evaluation: There is normal arterial and venous Doppler flow within the testicle. Scrotal Sac: No evidence of hydrocele. Epididymis: No acute abnormality. Procedure Note Nikki Austin MD - 11/13/2024 EXAMINATION: ULTRASOUND OF THE SCROTUM/TESTICLES WITH COLOR DOPPLER FLOW EVALUATION 11/13/2024 TECHNIQUE: Duplex ultrasound using B-mode/cobian scaled imaging, Doppler spectralanalysis and color flow Doppler was obtained of the testicles. COMPARISON: None. HISTORY: ORDERING SYSTEM PROVIDED HISTORY: testicular pain TECHNOLOGIST PROVIDED HISTORY: testicular pain FINDINGS: Measurements: Right Testicle: 3.34 x 2.95 x 2.10 cm Left Testicle: 2.69 x 2.53 x 2.32 cm Right: Carrion Scale: The right testicle demonstrates normal homogeneousechotexture without focal lesion. No evidence of testicular microlithiasis. Doppler Evaluation: There is normal arterial and venous Doppler flowwithin the testicle. Scrotal Sac: No evidence of hydrocele. Epididymis: No acute abnormality. Left: Carrion Scale: The left testicle demonstrates normal homogeneousechotexture without focal lesion. No evidence of testicular microlithiasis. Doppler Evaluation: There is normal arterial and venous Doppler flowwithin the testicle. Scrotal Sac: No evidence of hydrocele. Epididymis: No acute abnormality. IMPRESSION: Unremarkable testicular ultrasound with normal Doppler flow. Authorizing ProviderResult TypeResult StatusG[facility] G ORDERABLESFinal Result * (ABNORMAL) Urinalysis with Reflex to Culture (11/13/2024 6:48 PM EDT)Component ValueRef RangeTest MethodAnalysis TimePerformed AtPathologist SignatureColor, UARed(A)Wdwjhi8011/13/2024 6:48 PM EDTMERCY LABORATORIESComment:INTERPRET WITH CAUTION DUE TO INTENSE COLOR OF URINE.Turbidity UATurbid(A)Clear11/13/2024 6:48 PM EDTMERCY LABORATORIESGlucose, UrNEGATIVENEGATIVE mg/dL11/13/2024 6:48 PM EDTMERCY LABORATORIESBilirubin, LgejaSWSMYXZJQYYQYOZQ66/23/2025 6:48 PM EDT [facility] LABORATORIESKetones, UrineNEGATIVENEGATIVE mg/dL11/13/2024 6:48 PM EDT [facility] LABORATORIESSpecific [place], UA1.0161.005 - 1.5539311/13/2024 6:48 PM EDT [facility] LABORATORIESUrine HgbLARGE(A)GZZYAKLN27/23/2025 6:48 PM EDTMERCY LABORATORIESpH, Urine7.55.0 - 8.009 6:48 PM EDTMERCY LABORATORIES Protein, UA4+(A)NEGATIVE mg/dL11/13/2024 6:48 PM EDTMERCY LABORATORIES Urobilinogen, UrineNormal0.0 - 1.0 EU/dL11/13/2024 6:48 PM EDTMERCY LABORATORIESNitrite, UpaalRQTLSPUMRGINLQAY86/23/2025 6:48 PM EDTMERCY LABORATORIESLeukocyte Esterase, UrineLARGE(A)CZXDHXEB77/23/2025 6:48 PM EDT [facility] LABORATORIESSpecimen (Source)Anatomical Location / LateralityCollection Method / VolumeCollection TimeReceived RzlrDaqzg12/23/2025 6:48 PM EDT 11/13/2024 6:53 PM EDT Narrative Authorizing ProviderResult TypeResult StatusTravon GARCIA ORDERABLESFinal ResultPerforming OrganizationAddressCity/State/ZIP CodePhone Number [facility] [address] [place] [address], [facility] [phone] * Microscopic Urinalysis (11/13/2024 6:48 PM EDT)ComponentValueRef RangeTest MethodAnalysis TimePerformed AtPathologist SignatureWBC, UA50 TO 1000 - 5 /HPF 11/13/2024 6:48 PM EDTMERCY LABORATORIESRBC, UATOO NUMEROUS TO COUNT0 - 2 /HPF 11/13/2024 6:48 PM EDTMERCY LABORATORIESCasts UANone0 - 2 /LPF11/13/2024 6:48 PM EDTMERCY LABORATORIESEpithelial Cells, UA0 TO 20 - 5 /HPF11/13/2024 6:48 PM EDTMERCY LABORATORIESSpecimen (Source)Anatomical Location / Laterality Collection Method / VolumeCollection TimeReceived Time11/13/2024 6:48 PM EDT 11/13/2024 6:53 PM EDT Narrative Authorizing ProviderResult TypeResult StatusTravon GARCIA ORDERABLESFinal ResultPerforming OrganizationAddressCity/State/[place] [address], [facility] [phone] * Culture, Urine (11/13/2024 6:48 PM EDT)ComponentValueRef RangeTest Method Analysis TimePerformed AtPathologist SignatureSpecimen Description.URINE 11/13/2024 6:48 PM EDTMERCY LABORATORIESCultureNO SIGNIFICANT CPTQBW1011/13/2024 6:48 PM EDTMERCY LABORATORIESSpecimen (Source)Anatomical Location / Laterality Collection Method / VolumeCollection TimeReceived XqecIbxdz18/23/2025 6:48 PM EDT11/13/2024 7:22 PM EDT Narrative Authorizing ProviderResult TypeResult StatusMicky Herrera MDMICROBIOLOGY - GENERAL ORDERABLESFinal ResultPerforming OrganizationAddressCity/State/[place]IP [place] [address], [facility] [phone] * (ABNORMAL) CBC with Auto Differential (11/13/2024 6:47 PM EDT)ComponentValue Ref RangeTest MethodAnalysis TimePerformed AtPathologist SignatureWBC9.93.5 - 11.3 k/uL11/13/2024 6:47 PM EDTMERCY LABORATORIESRBC3.01(L)4.21 - 5.77 m/uL 11/13/2024 6:47 PM EDTMERCY XMTYMOZTYXFNTkpcmrxjcr99.4(L)13.0 - 17.0 g/dL 11/13/2024 6:47 PM EDTMERCY FKVXSCSKLIXSFdobcrzeda19.5(L)40.7 - 50.3 % 11/13/2024 6:47 PM EDTMERCY AHOMUJPWZBWHHSN764.7(H)82.6 - 102.9 fL11/13/2024 6:47 PM EDTMERCY ZOOREYAETDTCIEB99.6(H)25.2 - 33.5 pg11/13/2024 6:47 PM EDT Beintoo GUIYENCPFLMMGIAD09.028.4 - 34.8 g/dL11/13/2024 6:47 PM EDTMERCY AWSAFMIDGROOKQO35.611.8 - 14.4 %11/13/2024 6:47 PM EDTMERCY LABORATORIES Tyvqokgdk986273 - 453 k/uL11/13/2024 6:47 PM EDTMERCY UJRXIXXKCITLPUK85.98.1 - 13.5 fL11/13/2024 6:47 PM EDTMERCY LABORATORIESNRBC Automated0.00.0 per 100 WBC11/13/2024 6:47 PM EDTMERCY LABORATORIESNeutrophils %6336 - 65 %11/13/2024 6:47 PM EDTMERCY LABORATORIESLymphocytes %2424 - 43 %11/13/2024 6:47 PM EDT [facility] LABORATORIESMonocytes %93 - 12 %11/13/2024 6:47 PM EDTMERCY LABORATORIES Eosinophils %21 - 4 %11/13/2024 6:47 PM EDTMERCY LABORATORIESBasophils %10 - 2 %11/13/2024 6:47 PM EDTMERCY LABORATORIESImmature Granulocytes %1(H)0 % 11/13/2024 6:47 PM EDTMERCY LABORATORIESNeutrophils Absolute6.411.50 - 8.10 k/11/13/2024 6:47 PM EDTMERCY LABORATORIESLymphocytes Absolute2.371.10 - 3.70 k/uL11/13/2024 6:47 PM EDTMERCY LABORATORIESMonocytes Absolute0.870.10 - 1.20 k/11/13/2024 6:47 PM EDTMERCY LABORATORIESEosinophils Absolute0.160.00 - 0.44 k/11/13/2024 6:47 PM EDTMERCY LABORATORIESBasophils Absolute0.060.00 - 0.20 k/11/13/2024 6:47 PM EDTMERCY LABORATORIESImmature Granulocytes Absolute0.050.00 - 0.30 k/uL11/13/2024 6:47 PM EDTMERCY LABORATORIESRBC MorphologyMACROCYTOSIS NJFNGZS59/ 6:47 PM EDTMERCY LABORATORIESSpecimen (Source)Anatomical Location / LateralityCollection Method / VolumeCollection TimeReceived TimeBloodBLOOD SPECIMEN / Tblqdax8511/13/2024 6:47 PM EDT11/13/2024 6:52 PM EDT Narrative Authorizing ProviderResult TypeResult StatusTravon Zarate MDHEMATOLOGY ORDERABLESFinal ResultPerforming OrganizationAddressCity/State/ZIP CodePhone Number [facility] [address] [phone] * (ABNORMAL) Basic Metabolic Panel (11/13/2024 6:47 PM EDT)ComponentValueRef RangeTest MethodAnalysis TimePerformed AtPathologist CzujipdfkMngeln215(L)136 - 145 mmol/L11/13/2024 6:47 PM EDTMERCY LABORATORIESPotassium3.93.7 - 5.3 mmol/L11/13/2024 6:47 PM EDTMERCY DCLVATTJGARMXvmgueqd40922 - 107 mmol/L 11/13/2024 6:47 PM EDTMERCY NSTRTIZXBTJXFW892(L)20 - 31 mmol/L11/13/2024 6:47 PM EDTMERCY LABORATORIESAnion Xbe260 - 16 mmol/L11/13/2024 6:47 PM EDTMERCY OXBBPNUIBFDKUubxcmn508(H)74 - 99 mg/dL11/13/2024 6:47 PM EDTMERCY LABORATORIES KOP341 - 23 mg/dL11/13/2024 6:47 PM EDTMERCY LABORATORIESCreatinine1.20.7 - 1.2 mg/dL11/13/2024 6:47 PM EDTMERCY LABORATORIESEst, Glom Filt Rate63>60 mL/min/1.22m88111/13/2024 6:47 PM EDTMERCY LABORATORIESComment: ? These results are not intended for use in patients <18 years of age. ? eGFR results are calculated without a race factor using the 2020 CKD-EPI equation. Careful clinical correlation is recommended, particularly when comparing to results calculated using previous equations. The CKD-EPI equation is less accurate in patients with extremes of muscle mass, extra-renal metabolism of creatine, excessive creatine ingestion, or following therapy that affects renal tubular secretion. Calcium9.48.6 - 10.4 mg/dL11/13/2024 6:47 PM EDTMERCY LABORATORIESSpecimen (Source)Anatomical Location / LateralityCollection Method / VolumeCollection TimeReceived TimeBloodBLOOD SPECIMEN / Gpangto6111/13/2024 6:47 PM EDT11/13/2024 6:52 PM EDT Narrative Authorizing ProviderResult TypeResult StatusBrittneyfrandy Elliot MDCHEMISTRY ORDERABLESFinal ResultPerforming OrganizationAddressCity/State/ZIP CodePhone Number [facility] [address] [place] [address], [facility] [phone] * Blood Occult Stool Diagnostic (02/07/2024 1:04 PM EST)ComponentValueRef Range Test MethodAnalysis TimePerformed AtPathologist SignatureOccult Blood, Stool #1PPKWBRGIBHVGGRHY60/17/2024 1:04 PM [facility] LABDate, Stool #8FVBAQ9304/09/2023 1:04 PM [facility] LABTime, Stool #11,7588302/07/2024 1:04 PM [facility] LABSpecimen (Source) Anatomical Location / LateralityCollection Method / VolumeCollection Time Received TimeSTOOL SPECIMEN / Geyrrdn1602/07/2024 1:04 PM EST02/07/2024 1:23 PM EST Narrative Authorizing ProviderResult TypeResult StatusThhannah Solorzano MDBODY FLUIDS AND STOOLS ORDERABLESFinal ResultPerforming OrganizationAddressCity/State/ZIP Code Phone Number [facility] [address] [place] [address], [facility] [phone] from Last 3 Months or Most Recently Relevant to Health Maintenance Insurance * Guarantor: Carloz Love TypeRelation to PatientDate of BirthPhone Billing AddressPersonal/SwlbbhVjzd81/26/1951 [address] [address] on file Advance Directives TypeDate RecordedPatient RepresentativeExplanationACP-Do Not Resuscitate 02/08/2024 1:11 PMDNR-CCA 02/08/2024 * Full Code (Latest Code Status on File) Date ActivatedDate InactivatedComments11/14/2024 12:55 AM11/14/2024 4:11 PM * DNR-CCA Date ActivatedDate QmrbhkqvvgcPchdwdvd10/18/2024 11:11 AM02/10/2024 1:46 PM * Full Code Date ActivatedDate TnengzpfniiYdmcgpwq43/17/2024 4:14 PM02/08/2024 11:10 AM NameRelationshipHealthcare Agent RelationshipCommunicationBob Kate Brother/SisterSecondary Decision Maker* * * One NoChildPrimary Decision Maker Care Teams Team MemberRelationshipSpecialtyStart DateEnd Husam Taylor DO [address] [place] [address] PCP - GeneralFamily Mptlwqcc71/17/24
--- OUTSIDE RECORDS SUMMARY | 2025-01-23 09:37 | XMS_ITS | Encounter Summary ---
Author Organization [facility] Address [address] [place] [address] Care Team Providers Care Bread Supervisor Name Role Phone None, Provided Primary Care Provider Tristan Kohler MD Unavailable Encounter Details DateTypeDepartmentCare Team (Latest Contact Info)Wvhvewjyyuo18/01/2025Orders Only [facility] [address] [place] [address] Mary Alcazar MA S/P TAVR (transcatheter aortic valve replacement) (Primary Dx) Social History Tobacco UseTypesPacks/DayYears UsedDateSmoking Tobacco: NeverPassive Smoke Exposure: NeverSmokeless Tobacco: NeverAlcohol UseStandard Drinks/WeekComments Never0 (1 standard drink = 0.6 oz pure alcohol)[facility] UtilitiesAnswerDate Recorded In the past 12 months has the electric, gas, oil, or water [employer] threatened to shut off services in your [...] were you homeless or living in a mcfp (including now)? No11/09/2024Hunger Vital SignAnswerDate RecordedWithin the past 12 months, you worried that your food would run out before you got the money to buymore.Never true11/09/2024Ran Out of Food in the Last YearNot on file11/09/2024Sex and Gender InformationValueDate RecordedSex Assigned at SjqhfSgqr09/17/2025 10:45 AM EDTLegal PoxQslc4408/19/2021 9:49 PM EDTGender SixujgetWgid92/17/2025 10:45 AM EDT Sexual OrientationChoose not to pvejfqby00/17/2025 10:45 AM EDTdocumented as of this encounter Plan of Treatment DateTypeDepartmentCare Team (Latest Contact Info)Vlzlxkmbtbr92/05/2026 10:00 AM ESTFollow-Up [facility] [address] [place] [phone] Kaiser Smith, RAW STOCK MACHINE LOADER [address] [place] [address] 02/28/2025 3:30 PM ESTHospital Encounter [facility] Main Operating Room [address] [place] [phone] Betty May MD [address] [place] [address] Dr [address] [place] [address] 02/28/2025 3:30 PM EST - 02/28/2025 5:00 PM ESTSurgery [facility] Main Operating Room [address] [place] [address] Betty May MD [address] [place] [address] Dr [address] [place] [address] CYSTOSCOPY, WITH LEFT STENT INSERT IF INDICATED, W 1 OR MORE OF RETRGRD PYELO, URETEROSCPY, HOLMIUMLASER LITHOTRIPSY, AND CALC BASKET EXTRACTION [[id number] (CPT??)]NameTypePriorityAssociated DiagnosesOrder ScheduleXR chest 2 views ImagingRoutine S/P TAVR (transcatheter aortic valve replacement) Expected: 01/21/2025, Expires: 01/21/2026NamePriorityAssociated Diagnoses Date/TimeCYSTOSCOPY, WITH STENT INSERT IF INDICATED, W 1 OR MORE OF RETRGRD PYELO, URETEROSCPY, HOLMIUM LASER LITHOTRIPSY, AND CALC BASKET EXTRACTION Nephrolithiasis Kidney stones 02/28/2025 3:30 PM ESTdocumented as of this encounter Visit Diagnoses Diagnosis Kidney stones- Primary Calculus of kidney Nephrolithiasis Calculus of kidney S/P TAVR (transcatheter aortic valve replacement)- Primary Nephrolithiasis Calculus of kidney Kidney stones Calculus of kidney documented in this encounter Care Teams Team MemberRelationshipSpecialtyStart DateEnd Date None, Provided, PCP - General08/24/23 Tristan Barron MD [address] [place] [address] Consulting PhysicianUrology06/27/24documented as of this encounter
--- OUTSIDE RECORDS SUMMARY | 2025-01-23 09:37 | XMS_ITS | Encounter Summary ---
Author Organization [facility] Address [address] [place] [address] Care Team Providers Care Batcher Operator Name Role Phone None, Provided Primary Care Provider Tristan Kohler MD Unavailable Reason for Referral * Consultation (Routine) - Pending ReviewSpecialtyDiagnoses / ProceduresReferred By ContactReferred To ContactCardiology Diagnoses Nephrolithiasis Procedures DC OFFICE/OUTPATIENT [facility] 60 MINUTES Betty May MD [address] [place] [address] Dr [address] [place] [address] Phone: tel: fax: [address] [phone] Referral IDStatusReasonStart DateExpiration DateVisits RequestedVisits [id number] Review Specialty Services Required 51 Encounter Details DateTypeDepartmentCare Team (Latest Contact Info)Onvjhrkeira92/17/2025Orders Only [facility] [address] [place] [address] Ines Cameron MA Nephrolithiasis (Primary Dx) Social History Tobacco UseTypesPacks/DayYears UsedDateSmoking Tobacco: NeverPassive Smoke Exposure: NeverSmokeless Tobacco: NeverAlcohol UseStandard Drinks/WeekComments Never0 (1 standard drink = 0.6 oz pure alcohol)[facility] UtilitiesAnswerDate Recorded In the past 12 months has the [employer], gas, oil, or water company threatened to [...] were you homeless or living in a halfway (including now)? No11/09/2024Hunger Vital SignAnswerDate RecordedWithin the past 12 months, you worried that your food would run out before you got the money to buymore.Never true11/09/2024Ran Out of Food in the Last YearNot on file11/09/2024Sex and Gender InformationValueDate RecordedSex Assigned at XukmuFcwf48/17/2025 10:45 AM EDTLegal IvvBlkb2008/19/2021 9:49 PM EDTGender EycxocurCdod81/17/2025 10:45 AM EDT Sexual OrientationChoose not to kuxaximq31/17/2025 10:45 AM EDTdocumented as of this encounter Plan of Treatment DateTypeDepartmentCare Team (Latest Contact Info)Kxncvlnmdbu07/05/2026 10:00 AM ESTFollow-Up [facility] [address] [place] [address] Kaiser Smith, ELECTRONICS SYSTEM MECHANIC [address] [place] [address] 02/28/2025 3:30 PM ESTHospital Encounter [facility] Main Operating Room [address] [place] [phone] Betty May MD [address] [place] [address] [place] [address] 02/28/2025 3:30 PM EST - 02/28/2025 5:00 PM ESTSurgery [facility] Main Operating Room [address] [place] [phone] Betty May MD [address] [place] [address] [place] [address] CYSTOSCOPY, WITH LEFT STENT INSERT IF INDICATED, W 1 OR MORE OF RETRGRD PYELO, URETEROSCPY, HOLMIUMLASER LITHOTRIPSY, AND CALC BASKET EXTRACTION [[id number] (CPT??)]NamePriorityAssociated DiagnosesDate/TimeCYSTOSCOPY, WITH STENT INSERT IF INDICATED, W 1 OR MORE OF RETRGRD PYELO, URETEROSCPY, HOLMIUM LASER LITHOTRIPSY, AND CALC BASKET EXTRACTION Nephrolithiasis Kidney stones 02/28/2025 3:30 PM ESTNameTypePriorityAssociated DiagnosesOrder Schedule Ambulatory referral to CardiologyOutpatient ReferralRoutine Nephrolithiasis Expected: 01/07/2025 (Approximate), Expires: 07/07/2025documented as of this encounter Visit Diagnoses Diagnosis Nephrolithiasis- Primary Calculus of kidney Nephrolithiasis Calculus of kidney Kidney stones Calculus of kidney documented in this encounter Care Teams Team MemberRelationshipSpecialtyStart DateEnd Date None, Provided, PCP - General08/24/23 Tristna Barron MD [address] [place] [address] Consulting PhysicianUrology06/27/24documented as of this encounter
--- OUTSIDE RECORDS SUMMARY | 2025-01-23 09:37 | XMS_ITS | Encounter Summary ---
Author Organization [facility] Address [address] [place] [address] Care Team Providers Care Pier Master Name Role Phone None, Provided Primary Care Provider Tristan Kohler MD Unavailable Reason for Visit * ReasonOnset WhhnLziglzlttvzhuyjvnd55/19/2025Referral to cardiology Encounter Details DateTypeDepartmentCare Team (Latest Contact Info)Dsewxobokcl20/19/2025Telephone [facility] [address] [facility] [address] [place] [phone] Michaela Ratliff MA cardiology (Referral to cardiology ) Social History Tobacco UseTypesPacks/DayYears UsedDateSmoking Tobacco: NeverPassive Smoke Exposure: NeverSmokeless Tobacco: NeverAlcohol UseStandard Drinks/WeekComments Never0 (1 standard drink = 0.6 oz pure alcohol)[facility] UtilitiesAnswerDate Recorded In the past 12 months has the [employer], gas, oil, or water [employer] threatened to shut off services in your [...] were you homeless or living in a senior care (including now)? No11/09/2024Hunger Vital SignAnswerDate RecordedWithin the past 12 months, you worried that your food would run out before you got the money to buymore.Never true11/09/2024Ran Out of Food in the Last YearNot on file11/09/2024Sex and Gender InformationValueDate RecordedSex Assigned at VazrnEozq01/17/2025 10:45 AM EDTLegal OnyZsym5708/19/2021 9:49 PM EDTGender MxmsrgohBoxa14/17/2025 10:45 AM EDT Sexual OrientationChoose not to ikwjahex00/17/2025 10:45 AM EDTdocumented as of this encounter Miscellaneous Notes * Telephone Encounter - Michaela Ratliff MA - 01/09/2025 1:35 PM EST Patient will need to see cardiology to have clearance prior to scheduling surgery. Evelin kim send referral and patient is aware. All he needs to do is call and schedule that appt. documented in this encounter Plan of Treatment DateTypeDepartmentCare Team (Latest Contact Info)Dbrwsueiuru41/05/2026 10:00 AM ESTFollow-Up [facility] [address] [place] [phone] Kaiser Smith, FARMWORKER FIELD CROP [address] [place] [phone] 02/28/2025 3:30 PM ESTHospital Encounter [facility] Main Operating Room [address] [place] [phone] Betty May MD [address] [place] [address] Dr [address] [place] [phone] 02/28/2025 3:30 PM EST - 02/28/2025 5:00 PM ESTSurgery [facility] Main Operating Room [address] [place] [phone] Betty May MD [address] [place] [address] [address] [place] [phone] CYSTOSCOPY, WITH LEFT STENT INSERT IF INDICATED, W 1 OR MORE OF RETRGRD PYELO, URETEROSCPY, HOLMIUMLASER LITHOTRIPSY, AND CALC BASKET EXTRACTION [[id number] (CPT??)]NamePriorityAssociated DiagnosesDate/TimeCYSTOSCOPY, WITH STENT INSERT IF INDICATED, W 1 OR MORE OF RETRGRD PYELO, URETEROSCPY, HOLMIUM LASER LITHOTRIPSY, AND CALC BASKET EXTRACTION Nephrolithiasis Kidney stones 02/28/2025 3:30 PM ESTdocumented as of this encounter Visit Diagnoses Not on filedocumented in this encounter Care Teams Team MemberRelationshipSpecialtyStart DateEnd Date None, Provided, PCP - General08/24/23 Tristan Barron MD [address] [place] [phone] Consulting PhysicianUrology06/27/24documented as of this encounter
--- OUTSIDE RECORDS SUMMARY | 2025-01-23 09:37 | XMS_ITS | Clinical Summary ---
Author Organization [facility] Address [address] [address] Care Team Providers Care Food Beverage Supervisor Name Role Phone None, Provided Primary Care Provider Tristan Kohler MD Unavailable Allergies No known active allergies Medications MedicationSigDispense QuantityRefillsLast FilledStart DateEnd DateStatus acetaminophen (Tylenol) 325 mg tablet Take 650 mg by mouth every 8 (eight) hours if needed.Active albuterol 2.5 mg /3 mL (0.083 %) nebulizer solution Inhale 2.5 mg every 6 (six) hours if needed.07/26/2019Active hydrOXYzine HCL (Atarax) 50 mg tablet Take 1-2 tablets by mouth if needed at bedtime.07/12/2023ctive metFORMIN XR (Glucophage-XR) 750 mg 24 hr tablet Take 750 mg by mouth.07/04/2023ctive pioglitazone (Actos) 30 mg tablet Take 30 mg by mouth in the morning.Active aspirin 81 mg EC tablet Take 1 tablet by mouth in the morning.Active ticagrelor (Brilinta) 90 mg tablet Take by mouth twice a day.07/20/2023ctive Nitrostat 0.[address] by sublingual route for 8 days.03/21/2019Active lisinopril 2.5 mg tablet Take 2.5 mg by mouth in the morning.06/07/2023ctive metoprolol tartrate (Lopressor) 25 mg tablet Take 0.5 tablets twice a day by oral route.05/10/2023ctive simvastatin (Zocor) 40 mg tablet Take 1 tablet every day by oral route for 90 days.12/04/2018Active benzonatate (Tessalon) 200 mg capsule Take 200 mg by mouth if needed in the morning, at noon, and at bedtime. 07/27/2023ctive simethicone (Mylicon) 80 mg chewable tablet Chew 80 mg every 6 (six) hours if needed.Active amitriptyline (Elavil) 25 mg tablet Use 1 tablet in the mouth or throat 1 (one) time each day.Active FLUoxetine (PROzac) 20 mg capsule Take 1 capsule every day by oral route for 90 days.Active folic acid (Folvite) 1 mg tablet Take 1 mg by mouth in the morning.07/20/2023ctive cholecalciferol, vitamin D3, (VITAMIN D3 ORAL) Take by mouth.Active insulin lispro (HUMALOG PEN SUBQ) Inject under the skin.Active HYDROcodone-acetaminophen ([place]) 5-325 mg tablet Take 1 tablet by mouth every 6 (six) hours if needed for severe pain (8-10 pain score).Active cyanocobalamin (Vitamin B-12) 500 mcg tablet Take 500 mcg by mouth in the morning.Active furosemide (Lasix) 20 mg tablet Take 20 mg by mouth two times daily.Active tamsulosin (Flomax) 0.4 mg 24 hr capsule Take 0.4 mg by mouth in the morning.Active hyoscyamine (Levsin SL) 0.125 mg dissolvable tablet Indications:Sepsis (CMS/HCC)Take 1 tablet (0.125 mg) by mouth every 4 (four) hours if needed (bladder spasm). 30 tablet 5Active Additional Information Patient not taking.Reported on 01/21/2025 pantoprazole (ProtoNix) 20 mg EC tablet Indications:Gastroesophageal reflux disease without esophagitisTake 1 tablet (20 mg) by mouth in the morning. 30 tablet 5Active dapagliflozin propanediol (Farxiga) 10 mg Take 10 mg by mouth in the morning.Active pantoprazole (ProtoNix) 20 mg EC tablet Take 20 mg by mouth in the morning.Discontinued(Reorder) Active Problems ProblemNoted DateDiagnosed DateCirrhosis of liver01/21/2025Kidney stones 01/15/20252000Kxvepjlvp97/24/5443Pumyeb97/19/3302Kxtxnfpeuilaxsy63/11/2025 Assessment & Plan (11/10/2024 5:26 AM EDT): He had left ureteroscopy with holmium laser lithotripsy. Patient was shivering after the procedure, lactate ordered, blood culture ordered. Patient condition improved afterwards, white blood cells 11.8 Patient received preoperative antibiotics. Will continue to monitor AAA (abdominal aortic aneurysm)06/27/2024Sepsis with acute renal failure 05/06/20248609Oglsdfa69/16/2025ge-related osteoporosis with current pathological aqfrsxtc49/25/2025Vitamin D vcxooslfjh93/25/2025Intractable back pain03/14/2024 Pathological fracture of thoracic vertebra with delayed hjvadle4703/14/2024Gross pztephfrx81/21/2025ute qgeifcjl76/18/2024Kidney stone02/08/2024 Overview (06/27/2024): 04/10/2024: Left renal stones measuring 16 x 8 mm in some by 3 mm. Stent placed in February 2024 with sepsis Electrolyte pqnalxekx88/17/1015Eceqalvdwby19/17/2024Megaloblastic anemia 02/07/2024S/P TAVR (transcatheter aortic valve replacement)11/22/2023Shock 10/05/20239847Ktkyilustgwbli32/01/2024cute renal hnbdomk4809/21/2023Iron deficiency anemia secondary to inadequate dietary iron zzqjlo1909/21/2023Leukocytes in urine 09/21/2023Urinary jkljkxoux67/31/2024ongestive heart rztpcyc1709/13/2023History of myocardial xujewvybxo81/23/2024Hx of CABG09/13/2023S/P PTCA (percutaneous transluminal coronary angioplasty)09/13/2023Severe aortic hyczmmzi32/23/2024 Acute coronary gbgcxqna66/03/2024HF psceywtjujhy26/03/2024oronary /03/2024ependence on supplemental yatpec0908/24/2023izziness 08/24/2023Erectile kpnskwdanby66/03/2024Mucopurulent chronic bronchitis 08/24/2023Other chronic pain08/24/2023ostconcussion veukpybl95/03/2024 Psychophysiological xsatxjtd70/03/2024otator cuff tear arthropathy of left /03/2024Spondylosis of lumbosacral region without myelopathy or irxthvuoptpet27/03/2314Nocbpccxiyr61/03/2024acteremia due to methicillin resistant Staphylococcus jblkcg1507/28/2023typical chest pain07/23/2023ommunity acquired pneumonia of left lower lobe of lung07/23/20231873Jmxcfpqqapay43/01/2024 Nlwnnta5007/23/2023GERD with itpkeprtozg83/01/2024 Assessment & Plan (11/10/2024 5:26 AM EDT): Resume home medications. HTN (hypertension)07/23/2023Mixed raxycpvqwflnsz91/01/2024leural effusion, left 07/23/2023Type 2 diabetes mellitus with hyperglycemia, without long-term current use of krpgthu6407/23/2023 Assessment & Plan (11/10/2024 5:26 AM EDT): Diabetes is unchanged. Diabetes management per protocol, hypoglycemia management, sliding scale. Weakness gksfszfrbgy86/01/2024Gastroesophageal reflux disease without hlcbdfzkuuq45/01/2024Type 2 diabetes hoiijkxz52/01/2024nxiety disorder 09/26/2018 Assessment & Plan (11/10/2024 5:26 AM EDT): Resume home medications Benign essential uxlgskkiifqu72/06/2019 Assessment & Plan (11/10/2024 5:26 AM EDT): Resume home medication Body mass index 40.0-44.9, adult09/26/2018 Assessment & Plan (11/10/2024 5:26 AM EDT): Counseling regarding weight management was provided Chronic diastolic congestive heart gdjtgdq7509/26/2018 Assessment & Plan (11/10/2024 5:26 AM EDT): Resume home medications Condition is stable Chronic respiratory failure with imntric5309/26/2018COPD (chronic obstructive pulmonary disease)09/26/2018 Assessment & Plan (11/10/2024 5:26 AM EDT): Resume home medications Condition is stable Difficulty eajcuww1409/26/2018Long term current use of inhaled hploopz9209/26/2018 Anemia, lyslkfndtec60/06/2019Major depressive daqkcful66/06/2019Muscle weakness (generalized)09/26/2018Obstructive sleep apnea ourazuul85/06/2019Old myocardial onepdrlfww70/06/2019Pure gepisrhqfjunxggxkdph98/06/2019Rotator cuff tear, non- traumatic, right09/26/2018Solitary pulmonary ybduew8509/26/2018Fall09/21/2018 Morbid (severe) obesity due to excess fhvkuqfg35/01/2019Morbid vjueqce0709/21/2018 Anemia requiring xipkpgryghbt10/01/2019 Encounters DateTypeDepartmentCare QeccIqsynqkbjwx32/01/2025 9:00 AM ESTOffice Visit [place] [address] [facility] [address] Ponce Sim MD Pre-op evaluation (Primary Dx); Nonrheumatic aortic valve stenosis; S/P TAVR (transcatheter aortic valve replacement); Hx of CABG01/21/2025Orders Only [facility] [address] [place] [address] Mary Alcazar MA S/P TAVR (transcatheter aortic valve replacement) (Primary Dx)01/15/2025Orders Only [facility] UROLOGY [address] [place] [address] Erma Quezada MA Nephrolithiasis (Primary Dx); Kidney ynvfzr0701/09/2025Orders Only [facility] [address] [place] [address] iMchaela Ratliff MA 01/09/2025Telephone [facility] [address] [place] [address] Michaela Ratliff MA cardiology (Referral to cardiology )01/07/2025Orders Only [facility] UR[facility]Y [address] [place] [address] Ines Cameron MA Nephrolithiasis (Primary Dx)01/04/2025 11:15 AM ESTFollow-Up [facility] Urology [address] [place] [phone] Betty May MD Nephrolithiasis (Primary Dx); Gastroesophageal reflux disease without ixrqqofcqxs01/14/2025Telephone [facility] Urology [address] [place] [phone] Rose Carlson MA 11/26/2024 9:00 AM EDTFollow-Up [facility] Urology [address] [place] [phone] Tristan Barron MD Nephrolithiasis (Primary Dx)11/16/2024Telephone [facility] Infectious Disease [address] [place] [phone] Shital Duncan MA 11/09/2024 4:23 PM EDTAnesthesia Event [facility] Main Operating Room [address] [place] [phone] Donaldo Stewart MD Winkler, Dillon, MD 11/09/2024 1:39 PM EDT - 11/12/2024 2:50 PM EDTHospital Encounter [facility] 4AB Urology [address] [place] [phone] Tristan Barron MD Spencer, Caleb T, MD Assaly, Ragheb, MD Mansur, Sarmed, MD Sepsis ([facility]/HCC) (Primary Dx); Nephrolithiasis; Kidney stone Discharge Disposition: Home or Self Care ()11/09/2024 1:30 PM EDT - 11/09/2024 1:38 PM EDTHospital Encounter [facility] X-Ray Imaging [address] [place] [phone] Pain Discharge Disposition: Home or Self Care ()11/09/2024 1:30 PM EDT - 11/09/2024 3:00 PM EDTSurgery [facility] Main Operating Room [address] [place] [phone] Tristan Barron MD CYSTOSCOPY,WITH URETHRA NXUFSHGQ31/19/3793Utdepr51/16/2025Telephone [facility] Urology [address] [place] [phone] Vira Delgadillo MA 11/06/2024Orders Only [facility] Urology [address] [place] [phone] Tristan Barron MD Urinary tract infection without hematuria, site unspecified (Primary Dx) 11/05/20249852Xybjhu18/11/2025Orders Only [facility] Urology [address] [place] [phone] Tristan Barron MD Nephrolithiasis (Primary Dx)10/31/2024 11:30 AM EDTFollow-Up [facility] Urology [address] [place] [phone] Tristan Barron MD Nephrolithiasis (Primary Dx)from Last 3 Months Immunizations ImmunizationAdministration DatesNext DueInfluenza, High Dose Seasonal, Preservative Free01/26/2019Influenza, High-dose Seasonal, Quadrivalent, Preservative Free11/21/2020Influenza, Ajdpuerzkap79/30/2017Influenza, seasonal, edtlcrmqlp85/21/2021Pfizer SARS-CoV-2 Gbkvxoiwknl20/24/2021Pneumococcal Conjugate PCV 1301Pneumococcal Polysaccharide XYJ875804/09/2021 Family History RelationNameStatusCommentsFatherDeceasedMotherDeceased Social History Tobacco UseTypesPacks/DayYears UsedDateSmoking Tobacco: NeverPassive Smoke Exposure: NeverSmokeless Tobacco: Never Tobacco Cessation:Counseling Given: Not Answered Alcohol UseStandard Drinks/WeekCommentsNever0 (1 standard drink = 0.6 oz pure alcohol)[facility] UtilitiesAnswerDate RecordedIn the past 12 months has the [employer], gas, oil, or water company threatened to shut off services in your home?No 11/09/2024Humiliation, Afraid, Rape, and Kick questionnaireAnswerDate Recorded Within the last year, have you been afraid of your partner or ex-partner?No 11/09/2024Emotionally AbusedNot on file11/09/2024Physically AbusedNot on file 11/09/2024Sexually AbusedNot on file11/09/2024Overall Financial Resource Strain (CARDIA)AnswerDate RecordedHow hard is it for you to pay for the very basics like food, housing, medical care, and heating?Not very hard11/09/2024PHQ-2Answer Date RecordedPatient Health Questionnaire-2 Tbshl71603/06/2024UT Safety & EnvironmentAnswerDate RecordedFear of Current or Ex-PartnerNot on file07/26/2023 Emotionally AbusedNot on file07/26/2023hysically AbusedNot on file07/26/2023 Sexually AbusedNot on file07/26/2023hysically or Sexually AbusedNot on file 07/26/2023TransportationAnswerDate RecordedIn the past 12 months, has lack of transportation kept you from medical appointments or from getting medications?No 11/09/2024Lack of Transportation (Non-Medical)Not on file11/09/2024Housing Stability Vital SignAnswerDate RecordedIn the last 12 months, was there a time when you were not able to pay the mortgage or rent on time?No11/09/2024Number of Times Moved in the Last YearNot on file11/09/2024t any time in the past 12 months, were you homeless or living in a prison (including now)?No11/09/2024 Hunger Vital SignAnswerDate RecordedWithin the past 12 months, you worried that your food would run out before you got the money to buymore.Never true11/09/2024 Ran Out of Food in the Last YearNot on file11/09/2024Sex and Gender Information ValueDate RecordedSex Assigned at VgkqhWkbw85/17/2025 10:45 AM EDTLegal SexMale 08/19/2021 9:49 PM EDTGender GnnogojqZuwk53/17/2025 10:45 AM EDTSexual OrientationChoose not to odzvkjhm47/17/2025 10:45 AM EDT Last Filed Vital Signs Vital SignReadingTime TakenCommentsBlood Igoxbswi025/7301/21/2025 8:36 AM EST Ksbkt033101/21/2025 8:36 AM BEFLggszqdpvfc67.4 ??C (97.6 ??F)11/26/2024 9:02 AM EDTRespiratory Nisl663211/12/2024 8:00 AM EDTOxygen Crvoggurez99%01/21/2025 8:36 AM ESTInhaled Oxygen Concentration--Vkngfl15.4 kg (186 lb)01/21/2025 8:36 AM EST Gdbgfb286.4 cm (5')01/21/2025 8:36 AM ESTBody Mass Index36.33103/24/2024 8:36 AM EST Plan of Treatment DateTypeDepartmentCare Team (Latest Contact Info)Jbxmhvvjykd24/05/2026 10:00 AM ESTFollow-Up [facility] UROLOGY [address] [place] [address] Savzyan, Kaiser, [employer] DEVELOPER [address] [place] [phone]- 02/28/2025 3:30 PM ESTHospital Encounter [facility] Main Operating Room [address] [place] [phone] Betty May MD [address] [place] [address] [place] [phone] 818- 02/28/2025 3:30 PM EST - 02/28/2025 5:00 PM ESTSurgery [facility] Main Operating Room [address] [place] [phone] Betty May MD [address] [place] [address] [place] [phone] CYSTOSCOPY, WITH LEFT STENT INSERT IF INDICATED, W 1 OR MORE OF RETRGRD PYELO, URETEROSCPY, HOLMIUMLASER LITHOTRIPSY, AND CALC BASKET EXTRACTION [59093 (CPT??)]NamePriorityAssociated DiagnosesDate/TimeCYSTOSCOPY, WITH STENT INSERT IF INDICATED, W 1 OR MORE OF RETRGRD PYELO, URETEROSCPY, HOLMIUM LASER LITHOTRIPSY, AND CALC BASKET EXTRACTION Nephrolithiasis Kidney stones 02/28/2025 3:30 PM ESTHealth MaintenanceDue DateLast DoneCommentsDiabetes: Hemoglobin A1C1950Medicare Annual Wellness (AWV)1950Diabetes: Retinopathy Jkxrofskj06/26/1959Diabetes: Urine Protein Rgieiqvww39/26/1968Adult Jsxytlt6303/18/1970Zoster Vaccines (1 of 2)1998COVID-19 Vaccine ( season)504/08/2020, 05/07/2020, 04/16/2020Influenza Vaccine (#1) /, 11/21/2020, 01/26/2019, Additional history existsFall Risk Ksljlucsy66/Depression Vvwflgtih48/ Pneumococcal Vaccine: 50+ PtvdqXkgwgppah14/17/2022, 02/27/2020olorectal Cancer BntxuixioIfymwcakfixsAUJRZpcihqpwvbgg42/17/2024CT ColonographyDiscontinued ColonoscopyDiscontinuedFIT-DNADiscontinuedFITDiscontinuedHIB VaccinesAged OutNo longer eligible based on patient's age to complete this topicHPV VaccinesAged OutNo longer eligible based on patient's age to complete this topicIPV Vaccines Aged OutNo longer eligible based on patient's age to complete this topic Meningococcal B VaccineAged OutNo longer eligible based on patient's age to complete this topicMeningococcal VaccineAged OutNo longer eligible based on patient's age to complete this topicRotavirus VaccinesAged OutNo longer eligible based on patient's age to complete this topicSigmoidoscopyDiscontinued Procedures Procedure NamePriorityDate/TimeAssociated DiagnosisCommentsECG 12 LEAD UNIT CQBTTNTZPErjxuxl00/01/2025 8:27 AM EST Pre-op evaluation POCT GLUCOSE METER UNSOLICITED VUGWBOTBfjjhjz94/22/2025 11:35 AM EDT COMPLETE ECHO (TTE) W/ IMAGING STUQRMysitjt10/22/2025 9:21 AM EDT POCT GLUCOSE METER UNSOLICITED LDZHJPXBqqdlkl28/22/2025 7:26 AM EDT CBC WITH AUTO VSDJUMVPHWYPRezbwkd70/22/2025 4:30 AM EDT CBC AND OGZJBOGYLFPCChfwnwo56/22/2025 4:30 AM EDT BASIC METABOLIC JJCUUVpkcubk00/22/2025 4:30 AM EDT POCT GLUCOSE METER UNSOLICITED FRLRYHLJkdfbst69/21/2025 9:41 PM EDT POCT GLUCOSE METER UNSOLICITED SCJCWOHLexmnrt72/21/2025 5:40 PM EDT POCT GLUCOSE METER UNSOLICITED WZPJFTOZyvjxyp23/21/2025 11:24 AM EDT POCT GLUCOSE METER UNSOLICITED FXGZHKFDkcixce50/21/2025 5:51 AM EDT COMPREHENSIVE METABOLIC SWIBJAJDB11/21/2025 3:48 AM EDT JXDRTDNFWNHuxymtu56/21/2025 3:48 AM EDT QDCUDTBIHSidhkyn17/21/2025 3:48 AM EDT CBC WITH AUTO XESGYXFPUPMEFzjwqpe85/21/2025 3:20 AM EDT CBC AND XYTQALYKZXQGYrhxtxt05/21/2025 3:[address] ABDOMEN PELVIS WO IV ICMRAPLMQAHO45/21/2025 1:45 AM EDT URINALYSIS WITH IHOLCUYLBZEKRMY43/21/2025 12:32 AM EDT URINE GWBCGIVNZGE55/21/2025 12:32 AM EDT PROTIME-FHKJBEV5311/10/2024 11:33 PM EDT LACTIC ACID, LGJVHPWXVO94/20/2025 11:33 PM EDT BLOOD HGBAMHZGCHQ99/20/2025 11:33 PM EDT POCT GLUCOSE METER UNSOLICITED KKSQHORRmmrpwu60/20/2025 11:32 PM EDT POCT GLUCOSE METER UNSOLICITED XUITVJZPhypcvy79/20/2025 9:40 PM EDT POCT GLUCOSE METER UNSOLICITED SNZZMEPXvgrqpr56/20/2025 5:18 PM EDT POCT GLUCOSE METER UNSOLICITED ANIXWZEWizzrig40/20/2025 11:50 AM EDT XR CHEST 1 OOCBCpebhhq33/20/2025 8:50 AM EDT FERRITINAdd-On11/10/2024 8:21 AM EDT IRON AND TIBCAdd-On11/10/2024 8:21 AM EDT VITAMIN I03Gsw-Ry10/20/2025 8:21 AM EDT FOLATEAdd-On11/10/2024 8:21 AM EDT BASIC METABOLIC NVZZFSDTX65/20/2025 8:21 AM EDT CDNCGXD1911/10/2024 8:21 AM EDT POCT GLUCOSE METER UNSOLICITED UFHGSOKAqicsmy79/20/2025 7:49 AM EDT LACTIC ACID WITH 4 HOUR UWWEKGDinhlua20/20/2025 6:00 AM EDT POCT GLUCOSE METER UNSOLICITED EUTVNTMQnrctnl27/19/2025 10:19 PM EDT BLOOD SJHBRHTJepnfem74/19/2025 7:35 PM EDT BLOOD EWWXCOTPceluyj31/19/2025 7:30 PM EDT URINALYSIS CCDYGWKRCIRNlfqsdz60/19/2025 7:22 PM EDT KEUMKLCHQWEtmvvyt31/19/2025 7:22 PM EDT BASIC METABOLIC ASEVQEBND38/19/2025 6:40 PM EDT RYEHKOB0311/09/2024 6:40 PM EDT FL LESS THAN 1 HOUR WWACNQCDSAIQOOTmncekn93/19/2025 5:33 PM EDT Pain CO AN ELECTIVE ENDOTRACHEAL QTKHIDXvmidbh73/19/2025 4:38 PM EDT DILATION, URETHRA, GDEUUSLHOKJTAVEYVJ51/19/2025 4:19 PM EDT Nephrolithiasis POCT GLUCOSE METER UNSOLICITED BBWUNQSAofblbn77/19/2025 2:52 PM EDT URINALYSIS WITH UOALBJWGDPHHdhfksy38/10/2025 11:38 AM EDT Nephrolithiasis URINE IGOSNCSKdexsvs18/10/2025 11:38 AM EDT Nephrolithiasis from Last 3 Months Results * ECG 12 lead unit performed (01/21/2025 8:27 AM EST)Specimen (Source)Anatomical Location / LateralityCollection Method / VolumeCollection TimeReceived Time Narrative Authorizing ProviderResult TypeResult StatusChsrini FIELDSG ORDERABLES Final Result * (ABNORMAL) POCT glucose meter (11/12/2024 11:35 AM EDT) Only the most recent of13 resultswithin the time period is included. ComponentValueRef RangeTest MethodAnalysis TimePerformed AtPathologist Signature Glucose SXZ881(H)70 - 105 mg/dL11/12/2024 11:46 AM [facility] Comment:qpdhggn4Ucunuwxr (Source)Anatomical Location / LateralityCollection Method / VolumeCollection TimeReceived TimeBloodCapillary blood specimen / Gvwqnyw5811/12/2024 11:35 AM EDT11/12/2024 11:46 AM EDT Narrative [facility] - 11/12/2024 11:46 AM EDT Waived Testing in the ED is performed under the ED CLIA certificate #[id number]. Authorizing ProviderResult TypeResult StatusSasenthil Rebolledo MDLAB BLOOD ORDERABLES Final ResultPerforming OrganizationAddressCity/State/ZIP CodePhone Number [facility]) [address] [place] [address] * COMPLETE ECHO (TTE) W/ IMAGING AGENT (11/12/2024 9:21 AM EDT)Anatomical Region LateralityModalityOtherSpecimen (Source)Anatomical Location / Laterality Collection Method / VolumeCollection TimeReceived Time11/12/2024 8:55 AM EDT Narrative 11/12/2024 11:30 AM EDT 1 [facility] Heart Station [address] [place] [address] (fax) Echocardiogram-[facility] Name: BRIAN LOVE Study Date: 11/12/2024 08:55 AM B/P: 116 mmHg/66 mmHg HR: 63 bpm Date of : 1950 Location: [facility] Height: 60 in. Age: 74 year(s) Patient Room: 4140 Weight: 179 lb. Gender: Male Patient Status: InPt BSA: 1.78 m2 Indication: Congestive Heart Failure, Hypotension, COPD, CABG, TAVR, kidney stone Examination: Echocardiogram (Complete), Lumason Contrast Image Quality: Fair Patient Consent: Procedure explained to patient Exam Details Contrast: I.V. dose of Lumason Conclusions Left Ventricle: The left ventricle is normal size. Global left ventricular systolic function is normal. The calculated Biplane EF is 60 %. Left ventricular wall thickness is increased. Right Ventricle: The right ventricle is normal in size. Normal right ventricular systolic function. Doppler studies suggest mildly elevated right sided pressures. Left Atrium: The left atrium is mildly enlarged. Aortic Valve: A transcatheter aortic valve (TAVR) is seen. Tricuspid Valve: Mild tricuspid regurgitation. Overall Conclusions: Due to suboptimal imaging Lumason contrast was administered for opacification and better delineation of endocardial borders. Measurements Left Ventricle Label Value Normal Value LVOTd 1.8 cm (19cm - 21cm) LVOT VTI 22.1 cm (18cm - 22cm) LVOT PGmax 4 mmHg LVDd, 2D 4.44 cm (4.2cm - 5.9cm) LVDs, 2D 3.45 cm (2.1cm - 4cm) IVSd, 2D 1 cm (0.6cm - 1.1cm) LVPWd, 2D 1.13 cm (0.6cm - 1cm) LVEF, BP 60 % (55% - 65%) LV Mass, 2D ASE 163.73 g LV Mass Index, 2D ASE 92 g/m?? (50g/m?? - 102.4g/m??) RWT, MM 0.51 (0 - 0.42) LVSVI, 2D 22.5 ml/m2 LVOT PGmean 2 mmHg LVSV_LVOT 56 ml Right Ventricle Label Value Normal Value RVDd, 2D 4.11 cm (1.9cm - 3.8cm) TAPSE 2 cm Left Atrium Label Value Normal Value LA Volume, BP 61 ml (18ml - 58ml) LAESV index, BP 34.3 ml/m?? Right Atrium Label Value Normal Value RA Area 16.8 cm?? Aortic Valve Label Value Normal Value AV DVI 0.38 AV VTI 60.3 cm Mitral Valve Label Value Normal Value MV E Vmax 1.47 m/s MV A Vmax 1.28 m/s MV E/A 1.15 MV E/E' lateral 16.3 MV E' lateral 0.09 m/s Tricuspid Valve Label Value Normal Value RA Pressure 3 mmHg RVSP 37 mmHg TR Vmax 2.91 m/s Aorta Label Value Normal Value AoRoot, 2D 2.5 cm (1.4cm - 3.8cm) Great Vessels Label Value Normal Value IVC 2.1 cm (1.2cm - 2.3cm) Valvular Assessment LVOT 0.7 - 1.1 m/sec Aortic Valve 1.0 - 1.7 m/sec Mitral Valve 0.6 - 1.3 m/sec Tricuspid Valve 0.3 - 0.7 m/sec Pulmonic Valve 0.6 - 0.9 m/sec Regurgitation No trivMil Mild No Stenosis No No No No Max Velocity 0.95 m/sec 2.48 m/s 1.47 m/sec 1.06 m/s Max Gradient 25.00 mmHg 4.00 mmHg Mean Gradient 16.00 mmHg Valve Area 1.0 cm?? Findings Left Ventricle: The left ventricle is normal size. Global left ventricular systolic function is normal. The calculated Biplane EF is 60 %. Left ventricular wall thickness is increased. Right Ventricle: The right ventricle is normal in size. Normal right ventricular systolic function. Doppler studies suggest mildly elevated right sided pressures. Left Atrium: The left atrium is mildly enlarged. Right Atrium: The right atrium is normal in size. Mitral Valve: The mitral valve is normal in mobility and thickness. Trvial to mild mitral regurgitation. No mitral valve stenosis. There is mild mitral annular calcification. Aortic Valve: No aortic valve regurgitation. No aortic valve stenosis. 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 Tricuspid Valve: Normal tricuspid valve. Mild tricuspid regurgitation. No tricuspid valve stenosis. Pulmonic Valve: Normal pulmonary valve. No pulmonary regurgitation. No pulmonic valve stenosis. Aorta: The aortic root exhibits normal size. Great Vessels: IVC: The IVC is normal in size. Respiratory inspiration greater than 50%. Pericardium: No pericardial effusion. Procedure Staff Reading Group: [facility] Knitting Tester: CASE Woo, RDCS Ordering Physician: DESTINI MURRAY ?? Procedure Note Chaz Joseph MD - 11/12/2024 1 1 [facility] Heart Station [address] [place] [address] [phone] (fax) Echocardiogram-[facility] Name: BRIAN LOVE Study Date: 11/12/2024 08:55 AM B/P: 116 mmHg/66 mmHg HR: 63 bpm Date of : 1950 Location: [facility] Height: 60 in. Age: 74 year(s) Patient Room: 4140 Weight: 179 lb. Gender: Male Patient Status: InPt BSA: 1.78 m2 Indication: Congestive Heart Failure, Hypotension, COPD, CABG, TAVR, kidney stone Examination: Echocardiogram (Complete), Lumason Contrast Image Quality: Fair Patient Consent: Procedure explained to patient Exam Details Contrast: I.V. dose of Lumason Conclusions Left Ventricle: The left ventricle is normal size. Global left ventricular systolic function is normal. The calculated Biplane EF is 60 %. Left ventricular wall thickness is increased. Right Ventricle: The right ventricle is normal in size. Normal right ventricular systolic function. Doppler studies suggest mildly elevated right sided pressures. Left Atrium: The left atrium is mildly enlarged. Aortic Valve: A transcatheter aortic valve (TAVR) is seen. Tricuspid Valve: Mild tricuspid regurgitation. Overall Conclusions: Due to suboptimal imaging Lumason contrast was administered for opacification and better delineation of endocardial borders. Measurements Left Ventricle Label Value Normal Value LVOTd 1.8 cm (19cm - 21cm) LVOT VTI 22.1 cm (18cm - 22cm) LVOT PGmax 4 mmHg LVDd, 2D 4.44 cm (4.2cm - 5.9cm) LVDs, 2D 3.45 cm (2.1cm - 4cm) IVSd, 2D 1 cm (0.6cm - 1.1cm) LVPWd, 2D 1.13 cm (0.6cm - 1cm) LVEF, BP 60 % (55% - 65%) LV Mass, 2D ASE 163.73 g LV Mass Index, 2D ASE 92 g/m?? (50g/m?? - 102.4g/m??) RWT, MM 0.51 (0 - 0.42) LVSVI, 2D 22.5 ml/m2 LVOT PGmean 2 mmHg LVSV_LVOT 56 ml Right Ventricle Label Value Normal Value RVDd, 2D 4.11 cm (1.9cm - 3.8cm) TAPSE 2 cm Left Atrium Label Value Normal Value LA Volume, BP 61 ml (18ml - 58ml) LAESV index, BP 34.3 ml/m?? Right Atrium Label Value Normal Value RA Area 16.8 cm?? Aortic Valve Label Value Normal Value AV DVI 0.38 AV VTI 60.3 cm Mitral Valve Label Value Normal Value MV E Vmax 1.47 m/s MV A Vmax 1.28 m/s MV E/A 1.15 MV E/E' lateral 16.3 MV E' lateral 0.09 m/s Tricuspid Valve Label Value Normal Value RA Pressure 3 mmHg RVSP 37 mmHg TR Vmax 2.91 m/s Aorta Label Value Normal Value AoRoot, 2D 2.5 cm (1.4cm - 3.8cm) Great Vessels Label Value Normal Value IVC 2.1 cm (1.2cm - 2.3cm) Valvular Assessment LVOT 0.7 - 1.1 m/sec Aortic Valve 1.0 - 1.7 m/sec Mitral Valve 0.6 - 1.3 m/sec Tricuspid Valve 0.3 - 0.7 m/sec Pulmonic Valve 0.6 - 0.9 m/sec Regurgitation No trivMil Mild No Stenosis No No No No Max Velocity 0.95 m/sec 2.48 m/s 1.47 m/sec 1.06 m/s Max Gradient 25.00 mmHg 4.00 mmHg Mean Gradient 16.00 mmHg Valve Area 1.0 cm?? Findings Left Ventricle: The left ventricle is normal size. Global left ventricular systolic function is normal. The calculated Biplane EF is 60 %. Left ventricular wall thickness is increased. Right Ventricle: The right ventricle is normal in size. Normal right ventricular systolic function. Doppler studies suggest mildly elevated right sided pressures. Left Atrium: The left atrium is mildly enlarged. Right Atrium: The right atrium is normal in size. Mitral Valve: The mitral valve is normal in mobility and thickness. Trvial to mild mitral regurgitation. No mitral valve stenosis. There is mild mitral annular calcification. Aortic Valve: No aortic valve regurgitation. No aortic valve stenosis. 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 Tricuspid Valve: Normal tricuspid valve. Mild tricuspid regurgitation. No tricuspid valve stenosis. Pulmonic Valve: Normal pulmonary valve. No pulmonary regurgitation. No pulmonic valve stenosis. Aorta: The aortic root exhibits normal size. Great Vessels: IVC: The IVC is normal in size. Respiratory inspiration greater than 50%. Pericardium: No pericardial effusion. Procedure Staff Reading Group: [facility] Knitting Tester: CASE Woo, RDCS Ordering Physician: DESTINI MURRAY Authorizing ProviderResult TypeResult StatusRagheb Yessicaaly [facility] [place] ECHO PROCEDURES Final Result * (ABNORMAL) CBC auto differential (11/12/2024 4:30 AM EDT) Only the most recent of2 resultswithin the time period is included. ComponentValueRef RangeTest MethodAnalysis TimePerformed AtPathologist Signature Auto WBC8.594.00 - 10.60 10*3/uL11/12/2024 5:08 AM [facility] ([facility]) RBC2.46(L)4.20 - 5.70 10*6/uL11/12/2024 5:08 AM [facility] ([facility]) Hemoglobin8.7(L)13.0 - 17.0 g/dL11/12/2024 5:08 AM [facility] ([facility]) Zavxduxdbg73.7(L)39.0 - 50.0 %11/12/2024 5:08 AM [facility] ([facility]) BFF810.5(H)82.0 - 98.0 fL11/12/2024 5:08 AM [facility] ([facility])MCH35.4 (H)27.0 - 33.0 pg11/12/2024 5:08 AM [facility] ([facility])MCHC32.632.0 - 35.0 g/dL11/12/2024 5:08 AM [facility] ([facility])RDW14.611.5 - 15.0 % 11/12/2024 5:08 AM [facility] ([facility])Neutrophils %69.540.0 - 72.0 % 11/12/2024 5:08 AM [facility] ([facility])Lymphocytes %17.0(L)20.0 - 45.0 %11/12/2024 5:08 AM [facility])Monocytes %8.35.0 - 12.0 % 11/12/2024 5:08 AM [facility])Eosinophils %4.00.0 - 6.0 % 11/12/2024 5:08 AM [facility])Basophils %0.50.0 - 1.0 % 11/12/2024 5:08 AM [facility])Neutrophils Absolute5.981.60 - 7.60 10*3/11/12/2024 5:08 AM [facility])Lymphocytes Absolute 1.461.20 - 4.00 10*3/11/12/2024 5:08 AM [facility])Monocytes Absolute0.710.10 - 1.00 10*311/12/2024 5:08 AM [facility]) Eosinophils Absolute0.340.00 - 0.50 10*311/12/2024 5:08 AM [facility])Basophils Absolute0.040.00 - 0.20 10*311/12/2024 5:08 AM [facility])Bieivucjw994(L)150 - 400 10*311/12/2024 5:08 AM [facility])nRBC %0.00 %11/12/2024 5:08 AM [facility])Immature Granulocytes %0.70.0 - 1.0 %11/12/2024 5:08 AM [facility])Immature Granulocytes Absolute0.060.00 - 0.20 10*311/12/2024 5:08 AM [facility])Specimen (Source)Anatomical Location / LateralityCollection Method / VolumeCollection TimeReceived TimeBloodVenous blood specimen / UnknownVenipuncture / Pqezxlo1211/12/2024 4:30 AM EDT09/ 4:53 AM EDT Narrative Authorizing ProviderResult TypeResult StatusJose BROWN BLOOD ORDERABLESFinal ResultPerforming OrganizationAddressCity/State/ZIP CodePhone Number [facility] ([facility]) [address] [place] [address] * Basic metabolic panel (11/12/2024 4:30 AM EDT) Only the most recent of3 resultswithin the time period is included. ComponentValueRef RangeTest MethodAnalysis TimePerformed AtPathologist Signature Gldjms995904 - 145 mmol/L11/12/2024 6:23 AM [facility] ([facility]) Potassium4.03.5 - 5.1 mmol/L11/12/2024 6:23 AM [facility] ([facility]) Gomtpavd05520 - 107 mmol/L11/12/2024 6:23 AM [facility] ([facility])CO224 21 - 31 mmol/L11/12/2024 6:23 AM [facility] ([facility])MSQ903 - 25 mg/dL 11/12/2024 6:23 AM [facility] ([facility])Creatinine1.150.70 - 1.30 mg/dL 11/12/2024 6:23 AM [facility] ([facility])Ftqxfpm0567 - 100 mg/dL 11/12/2024 6:23 AM [facility] ([facility])Calcium8.78.6 - 10.3 mg/dL 11/12/2024 6:23 AM [facility] ([facility])Anion Sic903 - 20 mmol/L 11/12/2024 6:23 AM [facility] ([facility])eGFR66.0>60.0 mL/min/1.73m*2 11/12/2024 6:23 AM [facility] ([facility])Comment:The [facility]???s estimated glomerular filtration rate (eGFR) will no longer include consideration of race in its calculation. The National Kidney Foundation???s eGFR Task Force developed new recommendations for the estimation of the glomerular filtration rate in the [place] They recommend immediate implementation of the new equation refit without the race variable in all la boratories because the calculation does not include race. In addition to not including race in the calculation and reporting, it included diversity in its development, and has acceptable performance characteristics and potential consequences that do not disproportionately affect any one group of individuals. BUN/Creatinine Ratio11.309/ 6:23 AM [facility] ([facility])Specimen (Source)Anatomical Location / LateralityCollection Method / VolumeCollection TimeReceived TimeBloodVenous blood specimen / UnknownVenipuncture / Unknown 11/12/2024 4:30 AM EDT11/12/2024 4:53 AM EDT Narrative Authorizing ProviderResult TypeResult StatusNewb Nabil Ruano NJLAB BLOOD ORDERABLESFinal ResultPerforming OrganizationAddressCity/State/ZIP CodePhone Number [facility]) [address] [place] [address] * Phosphorus (11/11/2024 3:48 AM EDT)ComponentValueRef RangeTest MethodAnalysis TimePerformed AtPathologist SignaturePhosphorus3.02.5 - 5.0 mg/dL11/11/2024 4:21 AM [facility])Specimen (Source)Anatomical Location / LateralityCollection Method / VolumeCollection TimeReceived TimeBloodVenous blood specimen / UnknownArterial Line / Fkluynp2511/11/2024 3:48 AM EDT 11/11/2024 3:54 AM EDT Narrative Authorizing ProviderResult TypeResult StatusRagxenia Murray NJLAB BLOOD ORDERABLES Final ResultPerforming OrganizationAddressCity/State/ZIP CodePhone Number [facility]) [address] [place] [address] * (ABNORMAL) Magnesium (11/11/2024 3:48 AM EDT)ComponentValueRef RangeTest MethodAnalysis TimePerformed AtPathologist SignatureMagnesium1.7(L)1.9 - 2.7 mg/dL11/11/2024 4:21 AM [facility])Specimen (Source) Anatomical Location / LateralityCollection Method / VolumeCollection Time Received TimeBloodVenous blood specimen / UnknownArterial Line / Unknown 11/11/2024 3:48 AM EDT11/11/2024 3:54 AM EDT Narrative Authorizing ProviderResult TypeResult StatusRagheb Assaly MDLAB BLOOD ORDERABLES Final ResultPerforming OrganizationAddressCity/State/ZIP CodePhone Number [facility] ([facility]) [address] [place] [address] * (ABNORMAL) Comprehensive metabolic panel (11/11/2024 3:48 AM EDT)Component ValueRef RangeTest MethodAnalysis TimePerformed AtPathologist SignatureSodium 135(L)136 - 145 mmol/L11/11/2024 4:21 AM [facility] ([facility]) Potassium3.93.5 - 5.1 mmol/L11/11/2024 4:21 AM [facility] ([facility]) Cmrpqkjw89228 - 107 mmol/L11/11/2024 4:21 AM [facility] ([facility])CO2 2421 - 31 mmol/L11/11/2024 4:21 AM [facility] ([facility])Anion Gap97 - 20 mmol/L11/11/2024 4:21 AM [facility] ([facility])PIV218 - 25 mg/dL 11/11/2024 4:21 AM [facility] ([facility])Creatinine1.150.70 - 1.30 mg/dL11/11/2024 4:21 AM [facility] ([facility])BUN/Creatinine Ratio11.3 11/11/2024 4:21 AM [facility] ([facility])Jybrjyo466(H)70 - 100 mg/dL 11/11/2024 4:21 AM [facility] ([facility])Calcium8.4(L)8.6 - 10.3 mg/dL 11/11/2024 4:21 AM [facility] ([facility])UWR1840 - 39 U/L11/11/2024 4:21 AM [facility] ([facility])ALT (SGPT)167 - 52 U/L11/11/2024 4:21 AM [facility] ([facility])Alkaline Rzgxdriweng148(H)34 - 104 U/L11/11/2024 4:21 AM [facility] ([facility])Total Protein6.26.0 - 8.3 g/dL11/11/2024 4:21 AM [facility] ([facility])Albumin2.9(L)3.5 - 5.7 g/dL11/11/2024 4:21 AM [facility] ([facility])Total Bilirubin0.50.3 - 1.0 mg/dL 11/11/2024 4:21 AM [facility] ([facility])eGFR66.0>60.0 mL/min/1.73m*2 11/11/2024 4:21 AM [facility] ([facility])Comment:The [facility]???s estimated glomerular filtration rate (eGFR) will no longer include consideration of race in its calculation. The National Kidney Foundation???s eGFR Task Force developed new recommendations for the estimation of the glomerular filtration rate in the [place] They recommend immediate implementation of the new equation refit without the race variable in all laboratories because the calculation does not include race. In addition to not including race in the calculation and reporting, it included diversity in its development, and has acceptable performance characteristics and potential consequences that do not disproportionately affect any one group of individuals.Specimen (Source)Anatomical Location / LateralityCollection Method / VolumeCollection TimeReceived TimeBloodVenous blood specimen / Unknown Arterial Line / Jpxvpxm1711/11/2024 3:48 AM EDT11/11/2024 3:54 AM EDT Narrative Authorizing ProviderResult TypeResult StatusRagheb Assaly MDLAB BLOOD ORDERABLES Final ResultPerforming OrganizationAddressCity/State/ZIP CodePhone Number [facility] ([facility]) [address] [place] [address] * CT abdomen pelvis wo IV contrast (11/11/2024 1:45 AM EDT)Anatomical Region LateralityModalityBody, Pelvis, AbdomenComputed TomographySpecimen (Source) Anatomical Location / LateralityCollection Method / VolumeCollection Time Received Time11/11/2024 2:10 AM EDT Impressions 11/11/2024 2:28 AM EDT * Interval removal of left ureteral stent. Similar 1.0 cm calculus in the left renal pelvis with mild left hydroureteronephrosis. There is increased left periureteral fat stranding. This may be due to recent instrumentation or ascending infection. * Urinary bladder wall thickening and perivesicular stranding which can be seen in setting of cystitis. Correlate with urinalysis. * Bilateral nephrolithiasis. * Trace bilateral pleural effusions greater on the left. * Cirrhotic liver morphology. Approved by:Lora Card11/11/2024 2:21 AM. I, Braulio De Anda,have reviewed the image(s) and agree with the findings in this report. Electronically signed: Braulio De Anda. Narrative 11/11/2024 2:[address] ABDOMEN PELVIS WO IV CONTRAST HISTORY: Left ureteral stent, left pelvic stone COMPARISON: 10/07/2024 TECHNIQUE: CT images of the abdomen and pelvis obtained without the administration of contrast. ??Lack of IV contrast limits evaluation, especially solid organs. ??Automated exposure control was utilized. All CT scans at this facility use dose modulation, iterative reconstruction, and/or weight based dosing when appropriate to reduce radiation dose to as low as reasonably achievable. FINDINGS: Limited evaluation of the solid organs, vessels, and lymph nodes in the absence of IV contrast. LOWER CHEST: Left greater than right trace bilateral pleural effusions. Bibasilar atelectasis. Cardiomegaly. Median sternotomy wires. Aortic valve prosthesis. Coronary artery bypass graft. LIVER AND BILIARY: Cirrhotic liver morphology. Gallbladder is unremarkable. No biliary dilatation. PANCREAS: Unremarkable SPLEEN: Unremarkable. ADRENALS: Unremarkable. KIDNEYS, URETERS, AND BLADDER: Interval removal of left ureteral stent. Bilateral renal calculi greater on the left. There is a 1.0 cm calculus in the left renal pelvis similar to prior. Mild dilatation of the left renal pelvis and ureter with periureteral stranding. The bladder is decompressed with Ramirez catheter in place. A few foci of gas within the urinary bladder likely related to recent catheterization. There is superior bladder wall thickening and perivesicular stranding. REPRODUCTIVE ORGANS: Unremarkable. GI TRACT AND PERITONEUM: The appendix and terminal ileum are unremarkable. No evidence of bowel obstruction. No free intraperitoneal gas. Colonic diverticulosis without CT evidence of acute diverticulitis. VASCULATURE: Heavy aortobiiliac atherosclerotic calcification aorta. Infrarenal aortic endograft with bilateral kissing common iliac artery stents. LYMPH NODES: No enlarged lymph nodes by size criteria. MUSCULOSKELETAL: No acute abnormality. Degenerative changes of the thoracolumbar spine. T12 vertebral plasty. Chronic T6 compression deformity. Small bilateral fat-containing inguinal hernias. Procedure Note Braulio De Anda MD - 11/11/2024 CT ABDOMEN PELVIS WO IV CONTRAST HISTORY: Left ureteral stent, left pelvic stone COMPARISON: 10/07/2024 TECHNIQUE: CT images of the abdomen and pelvis obtained without the administration of contrast. Lack of IV contrast limits evaluation,especially solid organs. Automated exposure control was utilized. [facility] use dose modulation, iterative reconstruction, and/or weightbased dosing when appropriate to reduce radiation dose to as low as reasonably achievable. FINDINGS: Limited evaluation of the solid organs, vessels, and lymph nodes in theabsence of IV contrast. LOWER CHEST: Left greater than right trace bilateral pleural effusions. Bibasilar atelectasis. Cardiomegaly. Median sternotomy wires. Aorticvalve prosthesis. Coronary artery bypass graft. LIVER AND BILIARY: Cirrhotic liver morphology. Gallbladder isunremarkable. No biliary dilatation. PANCREAS: Unremarkable SPLEEN: Unremarkable. ADRENALS: Unremarkable. KIDNEYS, URETERS, AND BLADDER: Interval removal of left ureteral stent. Bilateral renal calculi greater on the left. There is a 1.0 cm calculus inthe left renal pelvis similar to prior. Mild dilatation of the left renalpelvis and ureter with periureteral stranding. The bladder is decompressed withFoley catheter in place. A few foci of gas within the urinary bladder likelyrelated to recent catheterization. There is superior bladder wall thickening and perivesicular stranding. REPRODUCTIVE ORGANS: Unremarkable. GI TRACT AND PERITONEUM: The appendix and terminal ileum are unremarkable.No evidence of bowel obstruction. No free intraperitoneal gas. Colonic diverticulosis without CT evidence of acute diverticulitis. VASCULATURE: Heavy aortobiiliac atherosclerotic calcification aorta.Infrarenal aortic endograft with bilateral kissing common iliac artery stents. LYMPH NODES: No enlarged lymph nodes by size criteria. MUSCULOSKELETAL: No acute abnormality. Degenerative changes of thethoracolumbar spine. T12 vertebral plasty. Chronic T6 compression deformity. Smallbilateral fat-containing inguinal hernias. IMPRESSION: *Interval removal of left ureteral stent. Similar 1.0 cm calculus inthe left renal pelvis with mild left hydroureteronephrosis. There is increasedleft periureteral fat stranding. This may be due to recent instrumentation or ascending infection. *Urinary bladder wall thickening and perivesicular stranding which canbe seen in setting of cystitis. Correlate with urinalysis. *Bilateral nephrolithiasis. *Trace bilateral pleural effusions greater on the left. *Cirrhotic liver morphology. Approved by:Lora Card11/11/2024 2:21 AM. I, Braulio De Anda,have reviewed the image(s) and agree with the findingsin this report. Electronically signed: Braulio De Anda. Authorizing ProviderResult TypeResult StatusObi Ekwemarii MDG CT PROCEDURESFinal Result * (ABNORMAL) Urinalysis with microscopic (11/11/2024 12:32 AM EDT) Only the most recent of2 resultswithin the time period is included. ComponentValueRef RangeTest MethodAnalysis TimePerformed AtPathologist Signature Color, UrineDark-Yellow(A)Colorless, Yellow, Light-Wnfufq2411/11/2024 1:17 AM [facility] ([facility])Clarity, UrineTurbid(A)Clear11/11/2024 1:17 AM [facility] ([facility])Specific [place], Urine1.0121.010 - 1.7319711/11/2024 1:17 AM [facility] ([facility])pH, Urine6.55.0 - 8.0 pH11/11/2024 1:17 AM [facility] ([facility])Leukocytes, UrineLarge(A)Pvovxvge33/21/2025 1:17 AM [facility] ([facility])Nitrite, CvyudKgmwisbyCqkdvggt07/21/2025 1:17 AM [facility] ([facility])Protein, Urine30(A)Negative mg/dL11/11/2024 1:17 AM [facility] ([facility])Glucose, UrineNormalNormal mg/dL11/11/2024 1:17 AM [facility] ([facility])Bilirubin, MnskdDwfhltmjJdtwmrln11/21/2025 1:17 AM [facility] ([facility])Ketones, UrineNegativeNegative mg/dL11/11/2024 1:17 AM EDT [facility] ([facility])Urobilinogen, UrineNormalNormal mg/dL11/11/2024 1:17 AM [facility] ([facility])Blood, UrineLarge(A)Ezpbzlkd00/21/2025 1:17 AM [facility] ([facility])RBC, Urine>20(A)None Seen, 0-2 /HPF11/11/2024 1:17 AM [facility] ([facility])WBC, Urine>50(A)None Seen, 0-2 /HPF11/11/2024 1:17 AM [facility] ([facility])Squamous Epithelial, UrineNone SeenNone Seen, Occasional, Few /LPF11/11/2024 1:17 AM [facility] ([facility])Mucus, UrineOccasionalNone Seen, Occasional, Few /LPF11/11/2024 1:17 AM [facility] ([facility])Specimen (Source)Anatomical Location / LateralityCollection Method / VolumeCollection TimeReceived MgzsKpnli39/21/2025 12:32 AM EDT 11/11/2024 12:50 AM EDT Narrative Authorizing ProviderResult TypeResult StatusRagheb Trevor BROWN URINE ORDERABLES Final ResultPerforming OrganizationAddressCity/State/ZIP CodePhone Number [facility] ([facility]) [address], [place] [id number] * Urine culture, routine (11/11/2024 12:32 AM EDT) Only the most recent of2 resultswithin the time period is included. ComponentValueRef RangeTest MethodAnalysis TimePerformed AtPathologist Signature Urine Culture<10,000 CFU/ML No Significant Growth [place] 11/13/2024 8:11 AM [facility] ([facility])Specimen (Source)Anatomical Location / LateralityCollection Method / VolumeCollection TimeReceived TimeUrine Urine specimen obtained by clean catch procedure / Eypcufl6511/11/2024 12:32 AM EDT11/11/2024 12:50 AM EDT Narrative Authorizing ProviderResult TypeResult StatusNasheed Lobito MDLAB MICROBIOLOGY - GENERAL ORDERABLESFinal ResultPerforming OrganizationAddressCity/State/ZIP CodePhone Number [facility]) [address] [place] [address] * Blood culture (11/10/2024 11:33 PM EDT) Only the most recent of3 resultswithin the time period is included. ComponentValueRef RangeTest MethodAnalysis TimePerformed AtPathologist Signature Blood CultureNo growth at 5 days [place] 11/16/2024 1:01 AM [facility] ([facility])Specimen (Source)Anatomical Location / LateralityCollection Method / VolumeCollection TimeReceived TimeBlood Venous blood specimen / UnknownVenipuncture / Nntnbuc9811/10/2024 11:33 PM EDT 11/11/2024 12:21 AM EDT Narrative Authorizing ProviderResult TypeResult StatusRagheb Yessicaaly NJLAB MICROBIOLOGY - GENERAL ORDERABLESFinal ResultPerforming OrganizationAddressCity/State/ZIP Code Phone Number [facility]) [address] [place] [address] * (ABNORMAL) Protime-INR (11/10/2024 11:33 PM EDT)ComponentValueRef RangeTest MethodAnalysis TimePerformed AtPathologist FcjfwuebfYbjhrmt17.5(H)12.3 - 14.8 Apzwbob7311/11/2024 12:51 AM [facility] ([facility])INR1.22(H)0.90 - 1.10 11/11/2024 12:51 AM [facility])Comment: [facility] RECOMMENDED INR FOR WARFARIN THERAPY CONDITION ?INR PROPHYLAXIS OF VENOUS THROMBOSIS ? 2-3 (HIGH-RISK SURGERY) TREATMENT OF VENOUS THROMBOSIS ? 2-3 TREATMENT OF PULMONARY EMBOLISM ?2-3 PREVENTION OF SYSTEMIC EMBOLISM: ? 2-3 ?ACUTE MYOCARDIAL INFARCTION ?TISSUE HEART VALVES ?VALVULAR HEART DISEASE ?ATRIAL FIBRILLATION ?RECURRENT SYSTEMIC EMBOLISM MECHANICAL HEART VALVE ? 2.5-3.5 FROM: ORAL ANTICOAGULANTS. ??MECHANISM OF ACTION, CLINICAL EFFECTIVENESS, AND OPTIMAL THERAPEUTIC RANGE. ??CHEST 1995;108:231S-246S. Specimen (Source)Anatomical Location / LateralityCollection Method / Volume Collection TimeReceived TimeBloodVenous blood specimen / UnknownVenipuncture / Hushiwi3711/10/2024 11:33 PM EDT11/11/2024 12:21 AM EDT Narrative Authorizing ProviderResult TypeResult StatusObi Ekwenna MDLAB BLOOD ORDERABLES Final ResultPerforming OrganizationAddressCity/State/ZIP CodePhone Number [facility] [address] [place] [address] * Lactic acid, plasma (11/10/2024 11:33 PM EDT)ComponentValueRef RangeTest MethodAnalysis TimePerformed AtPathologist SignatureLactate1.20.5 - 2.2 mmol/L 11/11/2024 12:48 AM [facility])Specimen (Source)Anatomical Location / LateralityCollection Method / VolumeCollection TimeReceived Time BloodVenous blood specimen / UnknownVenipuncture / Uqrnuoc3211/10/2024 11:33 PM EDT11/11/2024 12:24 AM EDT Narrative Authorizing ProviderResult TypeResult StatusRagheb Assaly MDLAB BLOOD ORDERABLES Final ResultPerforming OrganizationAddressCity/State/ZIP CodePhone Number [facility] ([place]) [address] [place] [address] * XR chest 1 view (11/10/2024 8:50 AM EDT)Anatomical RegionLateralityModality ChestComputed RadiographySpecimen (Source)Anatomical Location / Laterality Collection Method / VolumeCollection TimeReceived Time11/10/2024 8:52 AM EDT Impressions 11/10/2024 8:52 AM EDT * No evidence of pulmonary infiltrate, acute pulmonary pathology or significant interval change. Electronically signed: Panda Messer. Narrative 11/10/2024 8:52 AM EDT HISTORY: A 74-year-old male with the history of the hypoxia. EXAM/TECHNIQUE: Chest: Portable upright AP view COMPARISON: Comparison is made with the chest radiograph of the 2015. FINDINGS: ??Both lungs and costophrenic angles are clear. There is no evidence of pulmonary infiltrate or acute pulmonary pathology. The cardiac silhouette is within normal limits. There is evidence of median thoracotomy. The trachea is in midline. The mediastinum is otherwise unremarkable. The hemidiaphragms are normal in position. The bony rib cage is intact. Procedure Note Panda Messer MD - 11/10/2024 HISTORY: A 74-year-old male with the history of the hypoxia. EXAM/TECHNIQUE: Chest: Portable upright AP view COMPARISON: Comparison is made with the chest radiograph of the2015. FINDINGS: Both lungs and costophrenic angles are clear. There is noevidence of pulmonary infiltrate or acute pulmonary pathology. The cardiac silhouette is within normal limits. There is evidence ofmedian thoracotomy. The trachea is in midline. The mediastinum is otherwise unremarkable. The hemidiaphragms are normal in position. The bony rib cage is intact. IMPRESSION: *No evidence of pulmonary infiltrate, acute pulmonary pathology or significant interval change. Electronically signed: Panda Messer. Authorizing ProviderResult TypeResult StatusJose Ruano MDIMJessica XR PROCEDURES Final Result * (ABNORMAL) Iron and TIBC (11/10/2024 8:21 AM EDT)ComponentValueRef RangeTest MethodAnalysis TimePerformed AtPathologist HznqujgmwCqfr16(L)50 - 212 ug/dL 11/10/2024 9:27 AM [facility] ([facility])LZLG266(L)250 - 450 ug/dL 11/10/2024 9:27 AM [facility] ([facility])Iron Izouadcqiy76(L)20 - 50 % 11/10/2024 9:27 AM [facility] ([facility])CTCL442.0155.0 - 355.0 ug/dL 11/10/2024 9:27 AM [facility] ([facility])Specimen (Source)Anatomical Location / LateralityCollection Method / VolumeCollection TimeReceived Time BloodVenous blood specimen / UnknownVenipuncture / Mpdczmt9311/10/2024 8:21 AM EDT11/10/2024 9:01 AM EDT Narrative Authorizing ProviderResult TypeResult StatusCaleb Nabil Ruano MDLAB BLOOD ORDERABLESFinal ResultPerforming OrganizationAddressCity/State/ZIP CodePhone Number [facility] ([facility]) [address] [place] [address] * (ABNORMAL) CBC (11/10/2024 8:21 AM EDT) Only the most recent of2 resultswithin the time period is included. ComponentValueRef RangeTest MethodAnalysis TimePerformed AtPathologist Signature Auto WBC10.264.00 - 10.60 10*3/uL11/10/2024 9:11 AM [facility] ([facility])RBC2.64(L)4.20 - 5.70 10*6/uL11/10/2024 9:11 AM [facility] ([facility])Hemoglobin9.3(L)13.0 - 17.0 g/dL11/10/2024 9:11 AM [facility] ([facility])Izttilsjpl52.2(L)39.0 - 50.0 %11/10/2024 9:11 AM [facility] ([facility])OYC415.8(H)82.0 - 98.0 fL11/10/2024 9:11 AM [facility] ([facility])MCH35.2(H)27.0 - 33.0 pg11/10/2024 9:11 AM [facility] ([facility]) MCHC33.032.0 - 35.0 g/dL11/10/2024 9:11 AM [facility] ([facility])RDW14.7 11.5 - 15.0 %11/10/2024 9:11 AM [facility] ([facility])Auurlqlqg762766 - 400 10*3/uL11/10/2024 9:11 AM [facility] ([facility])Specimen (Source) Anatomical Location / LateralityCollection Method / VolumeCollection Time Received TimeBloodVenous blood specimen / UnknownVenipuncture / Unknown 11/10/2024 8:21 AM EDT11/10/2024 9:02 AM EDT Narrative Authorizing ProviderResult TypeResult StatusTristan BROWN BLOOD ORDERABLES Final ResultPerforming OrganizationAddressCity/State/ZIP CodePhone Number [facility]) [address] [place] [address] * Folate (11/10/2024 8:21 AM EDT)ComponentValueRef RangeTest MethodAnalysis Time Performed AtPathologist CowuugaylVunpgc55.526.6 - 1,000 ng/mL11/10/2024 9:49 AM [facility])Specimen (Source)Anatomical Location / LateralityCollection Method / VolumeCollection TimeReceived TimeBloodVenous blood specimen / UnknownVenipuncture / Newfpye2211/10/2024 8:21 AM EDT11/10/2024 9:01 AM EDT Narrative Authorizing ProviderResult TypeResult StatusJose BROWN BLOOD ORDERABLESFinal ResultPerforming OrganizationAddressCity/State/ZIP CodePhone Number [facility]) [address] [place] [address] * Ferritin (11/10/2024 8:21 AM EDT)ComponentValueRef RangeTest MethodAnalysis TimePerformed AtPathologist XzcurzixrJcwtqobk125.024.0 - 336.0 ng/mL11/10/2024 9:49 AM [facility])Specimen (Source)Anatomical Location / LateralityCollection Method / VolumeCollection TimeReceived TimeBloodVenous blood specimen / UnknownVenipuncture / Ksakqqy6611/10/2024 8:21 AM EDT11/10/2024 9:01 AM EDT Narrative Authorizing ProviderResult TypeResult StatusCaleb Nabil Ruano [facility] BLOOD ORDERABLESFinal ResultPerforming OrganizationAddressCity/State/ZIP CodePhone Number [facility] ([facility]) [address] [place] [address] * Vitamin B12 (11/10/2024 8:21 AM EDT)ComponentValueRef RangeTest MethodAnalysis TimePerformed AtPathologist SignatureVitamin B-[id number] - 914 pg/mL11/10/2024 9:49 AM [facility] ([facility])Comment: REFERENCE RANGES: 180-914 pg/mL ??Normal 145-179 pg/mL ??Indeterminate <145 pg/mL Deficient Specimen (Source)Anatomical Location / LateralityCollection Method / Volume Collection TimeReceived TimeBloodVenous blood specimen / UnknownVenipuncture / Jeioikr9211/10/2024 8:21 AM EDT11/10/2024 9:01 AM EDT Narrative Authorizing ProviderResult TypeResult StatusJose Ruano [facility] BLOOD ORDERABLESFinal ResultPerforming OrganizationAddressCity/State/ZIP CodePhone Number [facility] ([facility]) [address] [place] [address] * Lactic acid with 4 hour reflex (11/10/2024 6:00 AM EDT)ComponentValueRef Range Test MethodAnalysis TimePerformed AtPathologist SignatureLactate0.80.5 - 2.2 mmol/L11/10/2024 6:31 AM [facility] ([facility])Specimen (Source) Anatomical Location / LateralityCollection Method / VolumeCollection Time Received TimeBloodVenous blood specimen / UnknownVenipuncture / Unknown 11/10/2024 6:00 AM EDT11/10/2024 6:03 AM EDT Narrative Authorizing ProviderResult TypeResult StatusMoreno Mooney [facility] BLOOD ORDERABLESFinal ResultPerforming OrganizationAddressCity/State/ZIP CodePhone Number [facility] ([facility]) [address] [place] [address] * (ABNORMAL) Urinalysis microscopic (11/09/2024 7:22 PM EDT)ComponentValueRef RangeTest MethodAnalysis TimePerformed AtPathologist SignatureRBC, Urine>20(A) None Seen, 0-2 /HPF11/09/2024 9:02 PM [facility] ([facility])WBC, Urine 6-10(A)None Seen, 0-2 /HPF11/09/2024 9:02 PM [facility] ([facility]) Squamous Epithelial, UrineOccasionalNone Seen, Occasional, Few /LPF11/09/2024 9:02 PM [facility] ([facility])Mucus, UrineOccasionalNone Seen, Occasional, Few /LPF11/09/2024 9:02 PM [facility] ([facility])Specimen (Source)Anatomical Location / LateralityCollection Method / VolumeCollection TimeReceived TimeUrineUrine specimen obtained by clean catch procedure / UnknownNon-blood Collection / Obzzkwz6311/09/2024 7:22 PM EDT11/09/2024 7:53 PM EDT Narrative Authorizing ProviderResult TypeResult StatusJoclemente BROWN URINE ORDERABLES Final ResultPerforming OrganizationAddressCity/State/ZIP CodePhone Number [facility] ([facility]) [address] [place] [address] * (ABNORMAL) Urinalysis (11/09/2024 7:22 PM EDT)ComponentValueRef RangeTest MethodAnalysis TimePerformed AtPathologist SignatureColor, UrineRed(A)Yellow, Light Yellow, Rjuwvemnq01/19/2025 9:02 PM [facility] ([facility]) Clarity, UrineTurbid(A)Clear, Other11/09/2024 9:02 PM [facility] ([facility])pH, Urine6.55.0 - 8.0 pH11/09/2024 9:02 PM [facility] ([facility])Leukocytes, UrineUnable to Perform Due to Color InterferenceNegative 11/09/2024 9:02 PM [facility] ([facility])Nitrite, UrineUnable to Perform Due to Color PfhiwfxaqmpsWhyvydfl79/19/2025 9:02 PM [facility] ([facility])Protein, UrineUnable to Perform Due to Color InterferenceNegative mg/dL11/09/2024 9:02 PM [facility] ([facility])Glucose, UrineUnable to Perform Due to Color InterferenceNormal mg/dL11/09/2024 9:02 PM [facility] ([facility])Bilirubin, UrineUnable to Perform Due to Color WpdzajusiqcyGdtulxdd89/19/2025 9:02 PM [facility] ([facility])Specific [place], Urine1.0201.010 - 1.7707511/09/2024 9:02 PM [facility] ([facility])Ketones, UrineUnable to Perform Due to Color InterferenceNegative mg/dL11/09/2024 9:02 PM [facility] ([facility])Blood, UrineUnable to Perform Due to Color CdthnmkieqanPxbinbsh76/19/2025 9:02 PM [facility] ([facility])Urobilinogen, UrineUnable to Perform Due to Color Interference Normal mg/dL11/09/2024 9:02 PM [facility] ([facility])Specimen (Source) Anatomical Location / LateralityCollection Method / VolumeCollection Time Received TimeUrineUrine specimen obtained by clean catch procedure / Unknown Non-blood Collection / Tmprwit6211/09/2024 7:22 PM EDT11/09/2024 7:53 PM EDT Narrative Authorizing ProviderResult TypeResult StatusTristan BROWN URINE ORDERABLES Final ResultPerforming OrganizationAddressCity/State/ZIP CodePhone Number [facility] ([facility]) [address] [place] [address] * [place] LESS THAN 1 HOUR INTRAOPERATIVE (11/09/2024 5:33 PM EDT)Anatomical Region LateralityModalityX-Ray AngiographySpecimen (Source)Anatomical Location / LateralityCollection Method / VolumeCollection TimeReceived Time11/10/2024 2:39 AM EDT Impressions 11/10/2024 2:40 AM EDT * Intraoperative fluoroscopy provided during dilation of the urethral stricture and left ureteral stent removal. No radiologist present during examination. Please refer to operative report for additional detail. Electronically signed: Braulio De Anda. Narrative 11/10/2024 2:40 AM EDT HISTORY: Urethral stricture Fluoroscopy time: 17 seconds Total air kerma: 5.699 mGy FINDINGS: Fluoroscopic images of the pelvis were obtained. Images demonstrate retrograde cannulation of the urinary bladder followed by dilation of the urethra. Left ureteral stent was removed. Procedure Note Braulio De Anda MD - 11/10/2024 HISTORY: Urethral stricture Fluoroscopy time: 17 seconds Total air kerma: 5.699 mGy FINDINGS: Fluoroscopic images of the pelvis were obtained. Imagesdemonstrate retrograde cannulation of the urinary bladder followed by dilation ofthe urethra. Left ureteral stent was removed. IMPRESSION: *Intraoperative fluoroscopy provided during dilation of the urethral stricture and left ureteral stent removal. No radiologist present during examination. Please refer to operative report for additional detail. Electronically signed: Braulio De Anda. Authorizing ProviderResult TypeResult Statusclemente Barron MDSEIL[facility] [place] FLUOROSCOPY PROCEDURESFinal Result * CO AN ELECTIVE ENDOTRACHEAL AIRWAY (11/09/2024 4:38 PM EDT) Marcial Whitlock CAA - 11/09/2024 4:38 PM EDT THERESA Ely 11/09/2024 4:43 PM Airway Date/Time: 11/09/2024 4:38 PM Reason: elective Airway not difficult General Information and Staff Patient location during procedure: OR Anesthesiologist: Donaldo Stewart MD Resident/MILK TRUCK DRIVER/CAA: THERESA Ely Performed: resident/MILK TRUCK DRIVER/THERESA Patient Condition Indications for airway management: anesthesia Patient position: sniffing Planned trial extubation Sedation level: deep Final Airway Details Preoxygenated: yes Final airway type: endotracheal airway Successful airway: ETT Cuffed: yes Successful intubation technique: video laryngoscopy Adjuncts used in placement: intubating stylet and cricoid pressure Endotracheal tube insertion site: oral Blade: Prakash Blade size: #3 ETT size (mm): 7.5 Cormack-Lehane Classification: grade I - full view of glottis Placement verified by: chest auscultation and capnometry Measured from: lips ETT to lips (cm): 22 Number of attempts at approach: 1 Number of other approaches attempted: 0 Authorizing ProviderResult TypeResult StatusMukesh Pitroda MDANESTHESIA ORDERABLESFinal Result from Last 3 Months Insurance Care Teams Team MemberRelationshipSpecialtyStart DateEnd Date None, Provided, PCP - General08/24/23 Tristan Barron MD [address] [place] [address] Consulting PhysicianUrology06/27/24
--- OUTSIDE RECORDS SUMMARY | 2025-01-23 10:02 | XMS_ITS | CCD ---
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 Name Role Phone RENUKA MORGAN Attending Unavailable [id number], [id number] Primary Care Unavailable ORVILLE OWENS Attending Unavailable ANAHY WISEMAN Primary Care Unavailable MARKER, DR MURRAY Admitting Unavailable MISC, DR BRITO Primary Care Unavailable MARKER, DR MURRAY Attending Unavailable MARKER, DR MURRAY Consulting Unavailable DAGOBERTO ESTRELLA Consulting Unavailable LIONEL, DR BRITO Primary Care Unavailable YULIA, DR GEORGIANA Ramos Attending Unavailable YULIA, DR GEORGIANA Ramos Consulting Unavailable YULIA, DR GEORGIANA Ramos Admitting Unavailable RITA, DR ROBERTS Consulting Unavailable DAGOBERTO ESTRELLA Consulting Unavailable CAT WEST Consulting Unavailable Claudia, Melanie Unavailable Ricardo Ladd Unavailable Claudia, Melanie Unavailable Claudia, Melanie Unavailable Carson Doherty Unavailable Ginger Banegas Unavailable Claudia, DO Melanie Mcgrath Primary Care Provider Claudia, DO Melanie N Admit Provider Claudia, DO Melanie N Attending Provider [phone] Shai MANUEL, DO Harjinder Fitzgerald Other Provider JULIA MAN Admitting Unavailable JULIA MAN Attending Unavailable GINGER MCPHERSON Referring Unavailabl e CLAUDIA, MELANIE N Primary Care Unavailable TIMMY ACOSTA Consulting Unavailabl e MATT MONTEMAYOR Consulting Unavailable RANDALL MARTIN Consulting Unavailable JULIA MAN Attending Unavailable MAN, JULIA U Referring Unavailable CLAUDIA, MELANIE N Primary Care Unavailable MAN, JULIA U Attending Unavailable MAN, JULIA U Referring Unavailable CLAUDIA, MELANIE N Primary Care Unavailable RANDALL MARTIN K Attending Unavailable MARTIN, RANDALL K Referring Unavailable CLAUDIA, MELANIE N Primary Care Unavailable MARTINRICKYIN K Attending Unavailable MARTIN, RANDALL K Referring Unavailable CLAUDIA, MELANIE N Primary Care Unavailable ESTHER STRATTON Attending Unavailable CLAUDIA, MELANIE N Primary Care Unavailable Harjinder Gibbons II Consulting Unavaila ble Claudia, Melanie N Admitting Unavailable Claudia, Melanie N Primary Care Unavailable Claudia, Melanie N Attending Unavailable Claudia DO, Melanie N Primary Care Provider [phone] Claudia DO, Melanie N Primary Care Provider CLAUDIA, MELANIE N Primary Care Unavailable LUZ IVORY Admitting Unavailable LUZ IVORY Attending Unavailable JASSI CARLTON Consulting Unavailable SHEY WATSON Consulting Unavailable No Pcp, No Pcp Primary Care Provider Unavailabl e No Pcp, No Pcp Primary Care Provider Unavailabl e No Pcp, No Pcp Primary Care Provider Unavailabl e Claudia DO, Melanie N Primary Care Provider Claudia DO, Melanie N Primary Care Provider Claudia DO, Melanie N Primary Care Provider No Pcp, No Pcp Primary Care Provider Unavailabl e ORVILLE LEDEZMA Attending Unavailable MELANIE TAYLOR Primary Care Unavailab KATIE eKllogg Referring Unavailab le NO PCP, NO PCP Primary Care Unavailable CLAUDIA, MELANIE N Primary Care Unavailable SKYLER ALFARO Attending Unavailable GOPAL MCCARTHY Admitting Unavailable WILL LOPEZ Consulting Unavailable SAMANTHA COOK Consulting Unavailable [facility] ONLY, [facility] Consulting Unavailable TRISTAN RODRIGUEZ Consulting Unavailable SADAF LLOYD Referring Unavailable CLAUDIA, MELANIE N Primary Care Unavailable SKYLER ALFARO Attending Unavailable SKYLER ALFARO Referring Unavailable CLAUDIA, MELANIE N Primary Care Unavailable GINGER MCPHERSON Referring Unavailabl e CLAUDIA, MELANIE N Primary Care Unavailable MATT REESE P Admitting Unavailable MATT REESE Attending Unavailable MAN, JULIA U Referring Unavailable CLAUDIA, MELANIE N Primary Care Unavailable MATT MONTEMAYOR Consulting Unavailable TIMMY ACOSTA Consulting UnavailJEROMY Vidal Consulting Unavailable HEMATOLOG[facility], [facility] Consulting Sandrine TRISTAN Liz Consulting Unavailable SKYLER LAKE Consulting Unavailable [place], [facility] Unavailable PIERO DUMONT JR Consulting Unavailable SHIRLEY PRATT Consulting Unavailable MAN, JULIA U Referring Unavailable CLAUDIA, MELANIE N Primary Care Unavailable WILL THAPA B Attending Unavailable CLEVE MURRAY Referring Unavailable CLAUDIA, MELANIE N Primary Care Unavailable SALLY MOORE Referring Unavailable CLAUDIA, MELANIE N Primary Care Unavailable MEDRANO, MURAD H Admitting Unavailable MEDRANO, MURAD H Attending Unavailable ABDIRASHID SMITH Referring Unavailable CLAUDIA, MELANIE N Primary Care Unavailable RAMOS CALIX Consulting Unavailable WILL THAPA Consulting Unavailable CLAUDE PEACE Consulting Unavailable BERNA CASTILLO Consulting Unavaila WIL Vasquez Consulting Unavailable [facility], [facility] Consulting Unavailable HARSHA CLEMENT Consulting Unavailable HARJINDER BURDEN Consulting Unavailable JEROMY OROZCO Consulting Unavailable SHIRLEY PRATT Consulting Unavailable TT ONLY, [facility] Consulting Unavailable JAKE FAIR Referring Unavailable CLAUDIA, MELANIE N Primary Care Unavailable MEDRANO, MURAD H Admitting Unavailable MEDRANO, MURAD H Attending Unavailable SHIRLEY DUMONT M Referring Unavailable NO PCP, NO PCP Primary Care Unavailable ALE BOWSER Consulting Unavailable SHIN MONTA[place] Consulting Unavailable [facility], [facility] Consulting Unavailable HARSHA CLEMENT Consulting Unavailable JACK NELSON Consulting Unavailable HENNA BEASLEY Consulting Unavailab JEROMY Marinelli Consulting Unavailable PIERO DUMONT JR Consulting Unavailable KAMERON VICTOR Consulting Unavailable SHIRLEY DUMONT Referring Unavailable NO PCP, NO PCP Primary Care Unavailable POTHIREDDY, MATT P Admitting Unavailable POTHIREDDY, MATT P Attending Unavailable LETY MILLER Referring Unavailable NO PCP, NO PCP Primary Care Unavailable SAMANTHA COOK Consulting Unavailable HARSHA CLEMENT Consulting Unavailable [facility] Consulti cornell Unavailable LETY MILLER Referring Unavailable NO PCP, NO PCP Primary Care Unavailable MATT REESE Referring Unavailable NO PCP, NO PCP Primary Care Unavailable SHIRLEY DUMONT Attending Unavailable CLAUDIA, MELANIE N Primary Care Unavailable AGUSTO JULIA Chelsea Admitting Unavailable CARDIOLOG[facility], [facility] Consulting Unavailable SHIRLEY DUMONT Attending Unavailable BABATUNDE DUMONTD Referring Unavailable CLAUDIA, MELANIE N Primary Care Unavailable MAGGIE CRUZ Attending Unavailable MAGGIE CRUZ Referring Unavailable CLAUDIA, MELANIE N Primary Care Unavailable CLAUDIA, MELANIE N Primary Care Unavailable ZWBALDEMAR, HARJINDER Attending Unavailable ELBERT PINON Admitting Unavailable ZWBALDEMAR, HARJINDER Attending Unavailable ZWAYER, HARJINDER Referring Unavailable CLAUDIA, MELANIE N Primary Care Unavailable ZWAYER, HARJINDER Attending Unavailable ZWAYER, HARJINDER Referring Unavailable CLAUDIA, MELANIE N Primary Care Unavailable CLAUDIA, MELANIE N Primary Care Unavailable ADONIS HOOKS Attending Unavailable ADONIS HOOKS Attending Unavailable ADONIS HOOKS Referring Unavailable CLAUDIA, MELANIE N Primary Care Unavailable ADONIS HOOKS Attending Unavailable ADONIS HOOKS R Referring Unavailable CLAUDIA, MELANIE N Primary Care Unavailable CLAUDIA, MELANIE N Primary Care Unavailable GINGER MCPHERSON Attending UnavailGINGER Canales Attending UnavailGINGER Canales Referring Unavailabl e CLAUDIA, MELANIE N Primary Care Unavailable CLAUDIA, MELANIE N Primary Care Unavailable JAKE FAIR Attending Unavailable CLAUDIA, MELANIE N Primary Care Unavailable SHREYA GAO Attending Unavailable CLAUDIA, MELANIE N Primary Care Unavailable FREDERICK FELIX Attending Unavailable REBECCA FERMIN Admitting Unavailable SHIRLEY DUMONT Attending Unavailable NO PCP, NO PCP Primary Care Unavailable NO PCP, NO PCP Primary Care Unavailable ELBERT PINON Admitting Unavailable HARJINDER BURDEN Consulting Unavailable REBECCA FERMIN Attending Unavailable CARDIOLOG[facility], [facility] Consulting Unavailable REBECCA FERMIN Referring Unavailable NO PCP, NO PCP Primary Care Unavailable NO PCP, NO PCP Primary Care Unavailable ELIZABET BECKETT Attending Unavailable SKYLER BYRD Admitting Unavailable SKYLER BYRD Attending Unavailable ORLANDO PALAFOX Consulting Unavailable MELANIE TAYLOR Primary Care Unavailable ASSALY, RAGHEB Admitting Unavailable NETO, RACHELL Attending Unavailable ITZEL, ARCELIA Ferrer Referring Unavailable EKWENNA, OBI Referring Unavailable ASSALY, RAGHEB Referring Unavailable NAYE, NASHEED Referring Unavailable RABETS, TRISTAN Referring Unavailable RABETS, TRISTAN Referring Unavailable RABETS, TRISTAN Attending Unavailable RABETS, TRISTAN Attending Unavailable RABETS, TRISTAN Attending Unavailable NAYE, LEYLA Referring Unavailable NAYE, LEYLA Attending Unavailable Medications Current Medications MedicationDrug Class(es)DatesSig (Normalized)Sig (Original)Acetaminophen (20 sources)Start: 42-74-6514saejzesatcwqh (TYLENOL) tablet 650 mgStart: 03-08-2024 End: 82-74-7895oaxv 325 mg by mouth every six hours as needed for painStart: 80-91-5605vxwoeinmytdno (TYLENOL) tablet 650 mgStart: 54-99-9380olau 1 tablet by mouth every four hours as mg, oral, Every 4 hours PRN, Temperature greater than 38.3 C, Starting on Tue10/20/23 at 0857, [Warning: Total Acetaminophen not to exceed more than 4 grams (4000 mg) in 24 hours]Start: 10-05-2023 End: 97-92-1283qrqg 650 mg by mouth every six hours as needed for pain and pain Start: 46-25-4486lume 1 tablet by mouth every six hours as needed for headache and fever and pain1,000 mg, oral, Every 6 hours PRN, headaches, temperature greater than 38 C, severe pain - pain scale 7-10, Starting on Tue09/08/23 at 2055Start: 01-29-0839papb 1 tablet by mouth every six hours as needed for pain and headache and fajdn893 mg, oral, Every 6 hours PRN, mild pain - pain scale 1- 3, headaches, temperature greater than 38C, Temperature greater than 38.3 C, Starting on Tue09/08/23 at 1455, [Warning: Total Acetaminophen not to exceed more than 4 grams (4000 mg) in 24 hours] End: 84-83-7121vdgd 2 tablets by mouth every four hours as needed for pain acetaminophen (TYLENOL) 325 MG tablet Take 2 tablets by mouth every 4 hours as needed for Pain 02/07/2024 Discontinued (LIST CLEANUP)acetaminophen 325 mg / HYDROcodone bitartrate 5 mg oral tablet (9 sources)Opioid AgonistStart: 10-31-2023 End: 50-33-8368IBFWXlepvcq-acetaminophen (NORCO) 5-325 mg per tablet Indications: Compression fracture of T12 vertebra, [place] Take 1 tablet by mouth every 6 (six) hours as needed for pain for up to 3 days. Max Daily Amount: 4 tablets 12 tablet 10/31/2023 11/03/2023 ActiveStart: 94-79-5383qyij 1 tablet by mouth every six hours as needed for pain and pain and pain1 tablet, oral, Every 6 hours PRN, moderate pain - pain scale 4-6, severe pain - pain scale 7-10, mild pain - pain scale 1-3, Starting on Shakira 10/20/23 at 1911, Look-alike/sound-alike medication - verify indication for use. acetaminophen 325 mg / oxyCODONE hydrochloride 5 mg oral tablet (2 sources)Opioid AgonistStart: 03-08-2024 End: 81-55-8443xyvv 1 tablet by mouth every four hours as needed for pain oxyCODONE-acetaminophen (PERCOCET) 5-325 MG per tablet Take 1 tablet by mouth every 4 hours as needed for Pain. 02/07/2024 Discontinued (LIST CLEANUP) albuterol 0.833 mg/ml / ipratropium bromide 0.167 mg/ml inhalation solution (4 sources)Anticholinergic, beta2-Adrenergic AgonistStart: 99-85-6685stso 3 mL by inhalation every six hours as needed for wheezingStart: 02-07-2024 End: 31-79-3074yzyx 1 dose by inhalation once1 Dose, Inhalation, ONCE, 1 dose, On Tue02/07/24 at 1130, Initiate RT Bronchodilator Protocol: NoStart: 09-08-2023 End: mL, nebulization, Once, On Shakira 09/08/23 at 0945, For 1 dose, Implement INPATIENT/ED BronchodilatorClinical Practice Guidelines? Yes, Document: \[facility]\epic\EPIC_Reference\Orders\Respiratory Care Guidelines\CPG Bronchodilator 2019.pdfamoxicillin 875 mg / clavulanate 125 mg oral tablet (5 sources)Penicillin-class AntibacterialStart: 03-15-2024 End: 04-41-1965Ydisr: 10-12-2023 End: 60-82-5135Ahgcg-81 81 MG (20 sources)take 1 tablet by mouth once dailyAspir-81 81 MG 1 tablet Orally Once a day for 90 day(s) Activeaspirin 81 mg chewable tablet (15 sources)Platelet Aggregation Inhibitor, Nonsteroidal Anti-inflammatory Drug Start: 12-01-2023 End: 09-88-6494fegkpdr 81 mg chewable tablet Chew 1 tablet (81 mg total) and swallow in the morning for 60 days. 30 tablet 1 12/01/2023 01/30/2024 Active Start: 07-01-2017 End: 10-12-2023 End: 02-55-9497ojot 1 tablet by mouth once dailyaspirin 81 MG tablet Take 81 mg by mouth daily 02/07/2024 Discontinued (LIST CLEANUP)benzonatate 100 mg oral capsule (11 sources)Non-narcotic AntitussiveStart: 62-93-8462Bhdmo: 71-41-2906vuhu 1 capsule by mouth three times daily as needed for coughbenzonatate (TESSALON PERLES) 200 mg capsule Take 1 capsule (200 mg total) by mouth 3 (three) timesa day as needed for cough. 20 capsule 07/27/2023 Suspendedblood sugar diagnostic (Glucometer Encore Test) (1 source)Start: 27-45-9792voxlt sugar diagnostic (Glucometer Encore Test) Active .ROUTE April 18, 2023 1:00amblood sugar diagnostic (Pharmacist Choice) (1 source)Start: 37-51-5638ohgiy sugar diagnostic (Pharmacist Choice) Active .ROUTE April 18, 2023 1:00amcalcium gluconate 3,000 mg in sodium chloride 0.9 % 100 mL IVPB (1 source)Start: 42-94-7061dkjtjao gluconate 4,000 mg in sodium chloride 0.9 % 250 mL IVPB (1 source)Start: 60-92-7030krwOXWSRyqp (ROCEPHIN) 1,000 mg in sterile water 10 mL IV syringe (1 source)Start: 02-08-2024 End: 86-04-1453uwdc 100 mg intravenously every twenty-four hours1,000 mg, IntraVENous, EVERY 24 HOURS, First dose on Tue02/08/24 at 1400, For 7 days, Administer as slow IV Push over 5 mins Reconstitute 1 g vials with 9.6 mL of designated diluent to produce a 100mg/mL solution.cholecalciferol 0.125 mg oral capsule (3 sources)Vitamin DStart: 03-19-2024 End: 98-87-5862Dknab: 57-32-7473pjtrxwrpetixm 6 mg oral tablet (2 sources)CorticosteroidStart: 02-10-2024 End: 53-59-3107kdpu 1 tablet by mouth once dailydexAMETHasone (DECADRON) 6 MG tablet Take 1 tablet by mouth daily for 2 doses 2 tablet 02/10/2024 02/12/2024 ActiveStart: 02-07-2024 End: mg, Oral, DAILY, 5 doses, First dose on Tue02/07/24 at 1630, Last dose on Tue02/11/24 at 0900docusate sodium 50 mg / sennosides, retirement 8.6 mg oral tablet (3 sources)Start: 60-50-1414Vrvht: 10-06-2023 End: .4 ml enoxaparin sodium 100 mg/ml prefilled syringe (1 source)Low Molecular Weight HeparinStart: 69-56-9096rpxdsc 40 mg by subcutaneous injection once daily40 mg, subcutaneous, Daily, First dose on Tue09/08/23 at 1500, Look-alike/sound-alike medication - verify indication for use. ergocalciferol 1.25 mg oral capsule (1 source)Provitamin D2 CompoundStart: 92-77-9279yyzde acid 1 mg oral tablet (12 sources)Start: 03-22-1658qiyc 1 mg by mouth once daily1 mg, oral, Daily, First dose on Tue09/08/23 at 1500, Look-alike/sound-alike medication - verify indication for use.furosemide 20 mg oral tablet (19 sources)Loop DiureticStart: 31-83-2364vtnk 1 tablet by mouth twice daily in the morningfurosemide (LASIX) 20 mg tablet TAKE 1 TABLET BY MOUTH TWICE DAILY (IN THE MORNING and late afternoon) 12/17/2023 ActiveStart: 10-11-2023 End: 25-56-5381Inpox: 84-14-9677dzqc 1 tablet by mouth twice daily before mealtimefurosemide (LASIX) 20 mg tablet Take 1 tablet (20 mg total) by mouth 2 (two) times a day before meals. 30 tablet 09/11/2023 SuspendedStart: 09-08-2023 40 mg, intravenous, 2 times daily, First dose (after last reorder) on Shakira 09/08/23 at 2100, Look-alike/sound-alike medication - verify indication for use. IVP rate = 20 mg/minStart: 09-08-2023 End: 18-63-066201 mg, intravenous, Once, On Shakira 09/08/23 at 1125, For 1 dose, Look-alike/sound-alike medication - verify indication for use. IVP rate = 20 mg/minglucagon (rdna) 1 mg injection (4 sources)Antihypoglycemic AgentStart: 09-99-1147Jhlzx: mg, intramuscular, As needed, low blood sugar, blood glucose less than 70 mg/dL and unconscious or NPO without IV access., Starting on Shakira 10/20/23 at 0857, If conscious and not NPO, immediately follow with meal tray or high protein (7Grams) snack if tray not available. If NPO, initiate IV 5% Dextrose/Water at 100 mL/hr and contact prescriber for additional orders. If blood glucose is not greater than 70 mg/dL after initial treatment, repeat treatment.Start: 10-05-2023 End: 53-10-0581Ddwqd: 79-92-8040Shqdynfekv Device (20 sources)Start: 04-17-5327Ljtqlelhjm Device 1 as directed bid for 365 days June, Pswrya43 ml glucose 500 mg/ml prefilled syringe (10 sources)Start: 10-78-7241Hnobh: 27-64-6800Vylyn: g, oral, As needed, low blood sugar, blood glucose less than 70 mg/dL, Starting on Shakira 10/20/23 at 0857, If patient conscious and taking PO. If blood glucose is not greater than 70 mg/dL after initial treatment, repeat treatment.Start: mL, intravenous, As needed, low blood sugar, blood glucose less than 70 mg/dL and unconscious orNPO with IV access, Starting on Shakira 10/20/23 at 0857, Push over 1-3 minutes STAT. If conscious and not NPO, immediately follow with meal tray or high protein (7 grams) snack if tray not available. If NPO, initiate 5% dextrose in water at 100 mL/hr and contact prescriber for additional orders. If blood glucose is not greater than 70 mg/dL after initial treatment, repeat treatment. VESICANT (RED) Warning: HYPERTONIC solution.Start: 10-05-2023 End: 20-94-9338Igtiq: 10-05-2023 End: 23-42-4956Sxdvs: 10-05-2023 End: 89-23-1428Tules: 41-25-6467Oabqx: 92-51-0338Coyfm: ml insulin lispro 100 unt/ml pen injector (7 sources)Insulin AnalogStart: 03-08-2024 End: 49-70-7649Hiuqo: 35-75-1385sraznk 400 mg by subcutaneous injection once daily, then inject 2 [IU] by subcutaneous injection 15minutes after mealtime2-8 Units, subcutaneous, Nightly, First dose on Shakira 10/20/23 at 2200, Bedtime hyperglycemia dosing. For blood glucose 201-250 mg/dL, give 2 units. For blood glucose 251-300 mg/dL, give 4 units. For blood glucose 301-350 mg/dL, give 6 units. For blood glucose 351-400 mg/dL, give 8 units. Give even ifNPO or meals skipped. Do NOT give more often then every 4 hours when NPO. Notify prescriber if blood glucose greater than 400 mg/dL. Look-alike/sound-alike medication - verify indication for use. Prime with 2 units of insulin prior to administration. Prandial/supplemental Insulin. Pre-filled pens stable 28 days at room temperature. Insulin lispro should be administered within 15 minutes before orimmediately after a meal.Start: 30-14-4846eobwte 400 mg by subcutaneous injection three times daily at mealtime, then inject 2 [IU] by subcutaneous injection 15 minutes after mealtime2-10 Units, subcutaneous, 3 times daily with meals, First dose on [facility] 10/20/23 at 0915, Daytime hyperglycemia dosing. For blood glucose 151-200 mg/dL, give 2 units. For blood glucose 201-250 mg/dL, give 4 units. For blood glucose 251-300 mg/dL, give 6 units. For blood glucose 301- 350 mg/dL, give 8 units. For blood glucose 351-400 mg/dL, give 10 units. Give even if NPO or meals skipped. Do NOT givemore often then every 4 hours when NPO. Notify prescriber if blood glucose greater than 400 mg/dL. L ook-alike/sound-alike medication - verify indication for use. Prime with 2 units of insulin prior to administration. Prandial/supplemental Insulin. Pre-filled pens stable 28 days at room temperature.Insulin lispro should be administered within 15 minutes before or immediately after a meal.Start: 80-22-9210fudavz 400 mg by subcutaneous injection once daily, then inject 2 [IU] by subcutaneous injection 15minutes after mealtime2-8 Units, subcutaneous, Nightly, First dose on [facility] 09/08/23 at 2200, Bedtime hyperglycemia dosing. For blood glucose 201-250 mg/dL, give 2 units. For blood glucose 251-300 mg/dL, give 4 units. For blood glucose 301-350 mg/dL, give 6 units. For blood glucose 351-400 mg/dL, give 8 units. Give even ifNPO or meals skipped. Do NOT give more often then every 4 hours when NPO. Notify prescriber if blood glucose greater than 400 mg/dL. Look-alike/sound-alike medication - verify indication for use. Prime with 2 units of insulin prior to administration. Prandial/supplemental Insulin. Pre- filled pens stable 28 days at room temperature. Insulin lispro should be administered within 15 minutes before orimmediately after a meal.Start: 03-00-9803ecoehy 400 mg by subcutaneous injection three times daily at mealtime, then inject 2 [IU] by subcutaneous injection 15 minutes after mealtime2-10 Units, subcutaneous, 3 times daily with meals, First dose on Tue09/08/23 at 1700, Daytime hyperglycemia dosing. For blood glucose 151-200 mg/dL, give 2 units. For blood glucose 201-250 mg/dL, give 4 units. For blood glucose 251-300 mg/dL, give 6 units. For blood glucose 301-350 mg/dL, give 8 units. For blood glucose 351-400 mg/dL, give 10 units. Give even if NPO or meals skipped. Do NOT givemore often then every 4 hours when NPO. Notify prescriber if blood glucose greater than 400 mg/dL. Look-alike/sound-alike medication - verify indication for use. Prime with 2 units of insulin prior to administration. Prandial/supplemental Insulin. Pre-filled pens stable 28 days at room temperature.Insulin lispro should be administered within 15 minutes before or immediately after a meal.levoFLOXacin 500 mg oral tablet (1 source)Quinolone AntimicrobialStart: 02-10-2024 End: 03-90-4320rvnu 1 tablet by mouth once dailylevoFLOXacin (LEVAQUIN) 500 MG tablet Take 1 tablet by mouth daily for 7 days 7 tablet 02/10/2024 02/17/2024 Roxrmv32 ml magnesium sulfate 40 mg/ml injection (6 sources)Start: 95-27-1520Uajjw: 02-07-2024 End: ,000 mg, IntraVENous, at 25 mL/hr, Administer over 2 Hours, ONCE, On Tue02/07/24 at 1230, For 1 doseStart: ,000 mg, intravenous, at 25 mL/hr, Administer over 120 Minutes, As needed, Magnesium level 1.7 to 1.9 mg/dL, or Ionized Magnesium level 0.45 to 0.5 mmol/L., Starting on Shakira 10/20/23 at 0857, Recheck magnesium level 4 hours after infusion complete. With each magnesium result continue the replacementorders as needed.Start: ,000 mg, intravenous, at 25 mL/hr, Administer over 240 Minutes, As needed, Magnesium level 1.6 mg/dL or less, or Ionized Magnesium level 0.44 mmol/L or less, Starting on Shakira 10/20/23 at 0857, Recheckmagnesium level 4 hours after infusion complete. With each magnesium result continue the replacement orders as needed. Start: 06-63-9586Camyi: ,000 mg, intravenous, at 25 mL/hr, Administer over 240 Minutes, As needed, Magnesium level 1.6 mg/dL or less, or Ionized Magnesium level 0.44 mmol/L or less, Starting on Shakira 09/08/23 at 1454, Recheck magnesium level 4 hours after infusion complete. With each magnesium result continue the replacement orders as needed.melatonin 3 mg oral tablet (9 sources)Start: 24-55-7776Vbahw: 10-06-2023 End: 86-81-8273Tmrww: .5 mg (rounded from 5 mg), oral, Nightly PRN, sleep, Starting on Shakira 09/08/23 at 903282 hr metFORMIN hydrochloride 500 mg extended release oral tablet (20 sources)BiguanideStart: 17-71-7092275 mg, oral, Daily with breakfast, First dose on Shakira 09/08/23 at 1530, Hold dose and notify prescriber if blood glucose is less than 100 mg/dL or patient status has changed to NPO. Look-alike/sound-al zeynep medication - verify indication for use. May alter blood glucose or insulin requirements. Metformin and use of contrast media will be reviewed according to Metformin and Metformin Containing Medications and Contrast Media policy. Do not crush or chew.Start: 02-70-3431qkiu 1 tablet by mouth once daily at dinner Metformin Active 0 .ROUTE .COMPLEX 90 July 04, 2023 9:04am Take 1 tablet by mouth daily with evening meal.Start: 04-18-2023 End: 57-34-5670poqd 1 tablet by mouth once daily at dinnerMetformin Discontinued 750 MG PO April 18, 2023 1:00am July 04, 2023 9:04am FreeTextSig: Take1 tablet by mouth daily with evening meal.; Note: Source Status: Refill; Refills: 1; Qty: 90 Tablet; Provider: Claudia Weiner NStart: 02-27-2020 End: 51-07-3407dxtd 750 mg by mouth once dailyMetformin Discontinued 750 MG PO Daily March 19, 2020 1:00am June 09, 2020 12:10pmmidodrine hydrochloride 5 mg oral tablet (10 sources)alpha-Adrenergic AgonistStart: 17-23-3350donc 1 tablet by mouth three times dailymidodrine (PROAMATINE) 5 mg tablet Take 1 tablet (5 mg total) by mouth 3 (three) times a day. 90 tablet 2024 ActiveStart: 10-05-2023 End: 60-20-4119Zroqf: 10-05-2023 End: 74-16-5036Ublla: 07-01-2017 End: 20-03-5496jjrq 2.5 mg by mouth onceMidodrine Discontinued 2.5 MG PO 3x/Day at 7a,12p,5p 90 30 July 01, 2017 12:00am September 07, 2018 2:33pmNitro Sublingual 0.4 0.4mg (20 sources)Nitro Sublingual 0.4 0.4mg 1 Sublingual Every 5min x3 for 30 days ActiveNitro Sublingual 0.4 0.4mg 1 Sublingual Every 5min x3 Activenitroglycerin 0.4 mg sublingual tablet (20 sources)Nitrate VasodilatorStart: 20-17-6016Hfvjc: 12-04-2018 End: 67-63-3634Rborbtxihxjcx Discontinued December 04, 2018 12:00am January 26, 2019 2:38pm2 ml ondansetron 2 mg/ml injection (7 sources)Serotonin-3 Receptor AntagonistStart: 60-39-0768jxya 4 mg intravenously every six hours as needed for nausea and vomitingStart: 10-20-2023 take 4 mg intravenously every eight hours as needed for nausea and vomiting4 mg, intravenous, Every 8 hours PRN, nausea, vomiting, Starting on Shakira 10/20/23 at 0857, Administerover 2-5 minutes.Start: 10-06-2023 End: 37-22-4256Reowm: 01-80-3196huch 4 mg intravenously every six hours as needed for nausea and vomitingStart: 01-29-2019 End: 08-60-6602hrpk 1 tablet by mouth once dailyOndansetron Hcl (Zofran) 4 mg tablet Discontinued 4 MG PO Daily March 12, 2019 12:26pm May 03, 2019 2:29pmondansetron (ZOFRAN-ODT) disintegrating tablet 4 mg (1 source)Start: 90-64-1698awakatupgof (ZOFRAN-ODT) disintegrating tablet 4 mg oxyCODONE hydrochloride 5 mg oral tablet (3 sources)Opioid AgonistStart: 02-07-2024 End: 81-83-0175mqtt 1 tablet by mouth every four hours as needed for pain oxyCODONE (ROXICODONE) 5 MG immediate release tablet Indications: T12 compression fracture, sequelaTake 1 tablet by mouth every 4 hours as needed for Pain for up to 3 days. Max Daily Amount: 30 mg 12 tablet 02/10/2024 02/13/2024 ActiveStart: 10-06-2023 End: 73-06-8760mvpu 5 mg by mouth every six hours as needed for pain and pain Oxygen Concentrator (20 sources)Start: 76-06-2797Wwxuxg Concentrator Oct, Activeoxygen-air delivery systems (PV Classic Oxygen Concentrator) (1 source)Start: 77-76-9737pbdncy-air delivery systems (PV Classic Oxygen Concentrator) Active .ROUTE April 18, 2023 1:00ampioglitazone 30 mg oral tablet (20 sources)Peroxisome Proliferator Receptor alpha Agonist, Peroxisome Proliferator Receptor gamma Agonist, ThiazolidinedioneStart: 05-78-7402hbos 1 tablet by mouth in the morningpioglitazone (ACTOS) 30 mg tablet Take 1 tablet (30 mg total) by mouth in the morning. 11/04/2023 ActiveStart: 04-09-2021 End: 36-88-9464ighs 1 tablet by mouth once dailyPioglitazone Discontinued 30 MG PO Daily 90 90 June 07, 2023 4:25pm July 21, 2023 1:15pm 1 tablet Orally Once a daypolyethylene glycol 3350 21664 mg powder for oral solution (2 sources)Osmotic LaxativeStart: 23-75-9267Pttgf: 10-06-2023 End: 19-68-7779kyvhla phosphate 20 mmol in sodium chloride 0.9 % 250 mL IVPB (1 source)Start: 71-44-6783zwferp phosphate 20 mmol in sodium chloride 0.9 % 250 mL IVPBspironolactone 25 mg oral tablet (1 source)Aldosterone AntagonistStart: 49-12-6619ncae 25 mg by mouth once daily 25 mg, oral, Daily, First dose on Tue09/09/23 at 0900thiamine 100 mg oral tablet (2 sources)Start: 12-01-2023 End: 30-74-3084mzmo 1 tablet by mouth in the morningthiamine HCl (VITAMIN B-1) 100 mg tablet Take 1 tablet (100 mg total) by mouth in the morning for 30 days. 30 tablet 12/01/2023 12/31/2023 Activevancomycin 1,500 mg in sodium chloride 0.9 % 500 mL IVPB (1 source)Start: 07-28-2023 End: 40-39-1715yaqm 1500 mg intravenously every twenty-four hoursvancomycin 1,500 mg in sodium chloride 0.9 % 500 mL IVPB Infuse 1,500 mg into a venous catheter daily for 24 days. 1 each 07/28/2023 08/21/2023 Active Completed/Discontinued Medications MedicationDrug Class(es)DatesSig (Normalized)Sig (Original)20 ml albumin human, retirement 250 mg/ml injection (1 source)Human Serum AlbuminStart: 10-06-2023 End: 05-32-0049dtcgtakpk 0.83 mg/ml inhalation solution (20 sources)beta2-Adrenergic AgonistStart: 10-25-2023 End: 42.5 mg, nebulization, Once, On Tue10/25/23 at 1045, For 1 dose, PACU (only), Implement INPATIENT/ED Bronchodilator Clinical Practice Guidelines? NoStart: 10-98-8374mzmk 2.5 mg by inhalation every six hours as needed for wheezing2.5 mg, nebulization, Every 6 hours PRN, wheezing, Starting on Tue09/08/23 at 1454, Implement INPATIENT/ED Bronchodilator Clinical Practice Guidelines? Yes, Document: \[facility]\epic\EPIC_Re ference\Orders\Respiratory Care Guidelines\CPG Bronchodilator 2020.pdfStart: 93-90-0822xzec 2.5 mg by inhalation three times dailyAlbuterol Sulfate Active 2.5 MG INHALATION Three times daily July 26, 2019 12:00amStart: 07-26-2019 End: 74-29-3146vcnd 1 puff(s) by inhalation every four to six hoursAlbuterol Sulfate (Proair Hfa) 90 mcg/actuation Hfa Aerosol Inhaler Discontinued 1 PUFF INHALATION EVERY 4-6 HOURS July 26, 2019 12:00am April 18, 2023 8:55am Start: 28-00-6080Tdotktqhx Sulfate (2.5 MG/3ML) 0.083% 3 ml Inhalation every 8 hrs as needed for 30 day(s) Apr, ActiveStart: 99-77-3585Zhyutlrhk Sulfate (2.5 MG/3ML) 0.083% 3 ml Inhalation every 8 hrs as needed for 30 day(s) Apr, ActiveStart: 07-01-2017 End: 96-75-4559Fdrgmsorc Sulfate (Ventolin Hfa) 90 mcg/actuation Hfa Aerosol Inhaler Discontinued 90 MCG As Directed July 01, 2017 12:00am September 07, 2018 2:33pm End: 64-58-3221cpll 2.5 mg by inhalation every six hours as needed for wheezing take 2.5 mg by inhalation every six hours as needed for wheezingalbuterol (PROVENTIL,VENTOLIN) 2.5 mg /3 mL (0.083 %) nebulizer solution Inhale 3 mL (2.5 mg total)by nebulization every 6 (six) hours as needed for wheezing. Patient takes it every 2 hours Activeamitriptyline hydrochloride 75 mg oral tablet (20 sources)Tricyclic AntidepressantStart: 07-01-2017 End: 91-29-2959gplx 75 mg by mouth at bedtimeAmitriptyline Discontinued 75 MG PO Bedtime July 01, 2017 12:00am July 01, 2017 3:28pm End: 80-39-6487vcox 1 tablet by mouth in the morningamitriptyline (ELAVIL) 25 mg tablet Take 1 tablet (25 mg total) by mouth in the morning. Activeatorvastatin 20 mg oral tablet (17 sources)HMG-CoA Reductase InhibitorStart: mg, Oral, DAILY, First dose on Tue11/14/24 at 0900, Until Discontinued, Substituted for Simvastat in (ZOCOR).Start: 89-59-5951Esifh: 06-93-152773 mg, Oral, DAILY, First dose on Tue02/07/24 at 1700, Until Discontinued, Substituted for Simvastatin (ZOCOR). Start: 11-30-2023 End: 76-56-3819qgko 1 tablet by mouth once dailyatorvastatin (LIPITOR) 20 mg tablet Take 1 tablet (20 mg total) by mouth nightly for 60 days. 30 tablet 1 11/30/2023 01/29/2024 ActiveStart: 80-77-6521dnqt 1 tablet by mouth once daily atorvastatin (LIPITOR) 20 mg tablet Take 1 tablet (20 mg total) by mouth nightly. 30 tablet 10/31/2023 SuspendedStart: 60-87-9395ciru 20 mg by mouth once daily20 mg, oral, Nightly, First dose on Shakira 10/20/23 at 2200, Look-alike/sound-alike medication - verifyindication for use.Start: 10-06-2023 End: 26-94-7656Dbaaz: 82-94-6674effu 20 mg by mouth once daily20 mg, oral, Nightly, First dose on Shakira 09/08/23 at 2200, Look-alike/sound-alike medication - verifyindication for use.bisacodyl 10 mg rectal suppository (6 sources)Stimulant LaxativeStart: 10-06-2023 End: 60-31-3851Mkwaedywal-Formoterol (2 sources)Corticosteroid, beta2-Adrenergic AgonistStart: 07-26-2019 End: 07-71-4536ijfi 1 puff(s) by inhalation twice dailyBudesonide-Formoterol (Symbicort) 160-4.5 mcg/actuation Hfa Aerosol Inhaler Discontinued 2 PUFF INHA LATION Twice daily July 26, 2019 12:00am June 09, 2020 12:10pmStart: 07-01-2017 End: 89-05-6788Qnaaafidyt-Formoterol (Symbicort) 160-4.5 mcg/actuation Hfa Aerosol Inhaler Discontinued 0 MCG As Directed July 01, 2017 12:00am September 07, 2018 2:33pmcalcium chloride 0.0014 meq/ml / potassium chloride 0.004 meq/ml / sodium chloride 0.103 meq/ml / sodium lactate 0.028 meq/ml injectable solution (3 sources)Start: 03-08-2024 End: 30-19-4150Rwuwq: 10-09-2023 End: 04-03-5845Nixzj: 10-05-2023 End: 48-20-1233292 ml calcium gluconate 20 mg/ml injection (3 sources)Start: 02-08-2024 End: 42,000 mg, IntraVENous, at 50 mL/hr, Administer over 120 Minutes, ONCE, On Tue02/08/24 at 1000, For1 doseStart: 10-10-2023 End: 42-60-4867Rqyfc: 46-73-2174vxnuxrkd 300 mg oral capsule (1 source)Cephalosporin AntibacterialStart: 11-13-2024 End: 86-31-3227268 mg, Oral, Once, 1 dose, On Tue11/13/24 at 2130, Antimicrobial Indications: Urinary Tract Infection, UTI duration of therapy: 10 days, Substituted for Cefpodoxime (VANTIN).cefepime 2000 mg injection (2 sources)Cephalosporin AntibacterialStart: 03-12-2024 End: 74-23-3016bszw 2000 mg intravenously every twelve hoursStart: 03-09-2024 End: 56-79-8724mzdg 1000 mg intravenously every twelve hourscefTRIAXone (ROCEPHIN) 2,000 mg in sterile water 20 mL IV syringe (1 source)Start: 02-07-2024 End: 12-81-1676rydk 100 mg intravenously once2,000 mg, IntraVENous, ONCE, On Tue02/07/24 at 1400, For 1 dose, Administer as slow IV Push over 5mins Reconstitute 2 g vials with 19.2 mL of designated diluent to produce a 100mg/mL solutionCPAP Mask and supplies (20 sources)Start: 70-39-2617IZCH Mask and supplies Apr, Not-Taking Start: 80-16-1957VKMQ Mask and supplies Apr, Activecyclobenzaprine hydrochloride 10 mg oral tablet (2 sources)Muscle RelaxantStart: 03-21-2019 End: 37-91-7893zfpy 10 mg by mouth three times dailyCyclobenzaprine Discontinued 10 MG PO Three times daily March 21, 2019 1:00am May 03, 2019 2:29pm Start: 01-23-2018 End: 35-89-4680dtyp 10 mg by mouth three times dailyCyclobenzaprine Discontinued 10 MG PO Three times daily January 23, 2018 1:00am September 07, 2018 2:33pm dapagliflozin 10 mg oral tablet (10 sources)Sodium-Glucose Cotransporter 2 InhibitorStart: 51-61-7291ipxc 1 tablet by mouth in the morningdapagliflozin propanediol (FARXIGA) 10 mg tablet Take 1 tablet (10 mg total) by mouth in the morning. 30 tablet 09/12/2023 SuspendedStart: 62-40-8300Linhl: 85-59-9448sgej 10 mg by mouth once daily10 mg, oral, Daily, First dose on Tue09/08/23 at 1830doxycycline hyclate 100 mg oral capsule (1 source)Tetracycline-class DrugStart: 10-06-2023 End: 13-95-4458axfgbllzab 20 mg oral tablet (3 sources)Histamine-2 Receptor AntagonistStart: 54-15-8030sjug 20 mg by mouth once daily20 mg, Oral, DAILY, First dose (after last modification) on Tue02/09/24 at 0900, Until DiscontinuedStart: 02-07-2024 End: 78-97-3388htff 20 mg by mouth twice daily20 mg, Oral, 2 TIMES DAILY, First dose on Tue02/07/24 at 2100, Until DiscontinuedStart: 27-79-0636tcyv 20 mg intravenously every twenty-four hours20 mg, intravenous, Every 24 hours, First dose on Tue10/20/23 at 2100, Dilute to total volume of 5 mL with 0.9% sod chl and administer IVP over 2 minutes.1 ml fentaNYL 0.05 mg/ml injection (2 sources)Opioid AgonistStart: 03-16-2024 End: 10-31-4751Mgavd: 02-07-2024 End: 80-26-5488fann 1 dose by mouth every hour50 mcg, IntraVENous, ONCE, 1 dose, On Tue02/07/24 at 1130, If oral and IV narcotics ordered, use oral first and only use IV if oral is ineffective or cannot take oral. Do Not give oral and IV within1 hour of each other unless specifically ordered.FLUoxetine 20 mg oral capsule (8 sources)Serotonin Reuptake InhibitorStart: 47-75-8563lwgv 20 mg by mouth once daily20 mg, Oral, DAILY, First dose on Tue11/14/24 at 0900, Until Discontinued Start: 02-85-9178woug 20 mg by mouth once daily20 mg, Oral, DAILY, First dose on Tue02/07/24 at 1700, Until DiscontinuedStart: 09-07-2018 End: 96-85-6605Dqnfsgzcyn Discontinued December 04, 2018 12:00am January 26, 2019 2:38pmStart: 07-01-2017 End: 10-11-5483Vfxlzvopao Discontinued 20 MG Daily July 01, 2017 12:00am January 23, 2018 12:56pm End: 60-91-4781rdff 1 tablet by mouth once dailyFLUoxetine (PROZAC) 20 MG tablet Take 1 tablet by mouth daily Activefluticasone propionate 0.05 mg/actuat metered dose nasal spray (2 sources)CorticosteroidStart: 01-20-2024 End: 92-56-2364Irfdz: 53-26-6930vxvr 1 spray(s) nasal route in the morning fluticasone propionate (FLONASE) 50 mcg/actuation nasal spray Administer 1 spray into each nostril in the morning. 11.1 mL 01/20/2024 Abhftq039 actuat formoterol fumarate 0.005 mg/actuat / mometasone furoate 0.2 mg/actuat metered dose inhaler (20 sources)Corticosteroid, beta2-Adrenergic AgonistStart: 03-19-2020 End: 59-51-4376qjyr 1 puff(s) by inhalation twice dailyMometasone-Formoterol (Dulera) 200-5 mcg/actuation HFA aerosol inhaler Discontinued 2 PUFF INHALATION Twice daily March 19, 2020 1:00am April 18, 2023 8:56amStart: 34-35-4803prng 2 puff(s) by inhalation twice dailyDulera 200-5 MCG/ACT 2 puffs Inhalation Twice a day for 30 day(s) Oct, ActiveGlucometer n/a (20 sources)Start: 69-17-5786Ufqawnphyu n/a as directed as directed as directed for as directed Feb, Not-TakingStart: 83-00-1911Mkiwmkspvw n/a as directed as directed as directed for as directed Feb, Ocwxtb362 ml glucose 50 mg/ml / potassium chloride 0.02 meq/ml / sodium chloride 4.5 mg/ml injection (1 source)Start: 02-07-2024 End: 37-68-9826KumqrNBBkbq, at 75 mL/hr, CONTINUOUS, Starting on Tue02/07/24 at 1630, For 24 hours, Complete lastbag that is running at 24 hours and then saline lock IV1 ml heparin sodium, porcine 5000 unt/ml injection (5 sources)Unfractionated Heparin, Anti-coagulantStart: 03-09-2024 End: 86-66-5373Sxyal: 11-81-6832395-3,500 Units/hr (6-70 mL/hr), intravenous, Continuous, Starting on Tue10/20/23 at 1700, Please titrate from initial infusion rate: 1600 units/hr Please titrate from infusion rate listed above. MAXIMUM Initial Infusion: 2100 units/hr. Heparin High-Intensity Infusion (Non- Cardiology) Heparin Adjustment Table: Anti-Xa Therapeutic Goal: 0.3 - 0.7 IU/mL Anti-Xa results (IU/mL): Anti-Xa every 6 hours after dosage adjustment until therapeutic x 2 then every AM -less than 0.2 IU/mL: bolus 5000 units, increase rate by 150 units/hr (3 mL/hr), next Anti-Xa in 6 hrs. -0.2 - 0.29 IU/mL: increase rate by 100 units/hr (2 mL/hr), next Anti-Xa in 6 hours. -0.3 - 0.7 IU/mL:Therapeutic level: next Anti-Xa in 6 hours then every AM. -0.71 - 0.8 IU/mL: decrease rate by 50 units/hr (1 mL/hr), next Anti-Xa in6 hours. -0.81 - 1.6 IU/mL : stop infusion for 30 minutes, decrease rate by 100 units/hr (2 mL/hr),next Anti-Xa in 6 hours. -1.61 - 2 IU/mL: stop infusion for 60 minutes, decrease rate by 150 units/hr (3 mL/hr), next Anti-Xa in 6 hours. - Greater than 2 IU/mL: stop infusion for 90 minutes, decrease rate by 250 units/hr (5 mL/hr), next Anti-Xa in 6 hours. Monitor for signs of bleeding. Look-alike/sound-alike medication - verify indication for use., Indication: Pulmonary Embolism, INITIAL Infusion Dose (Units/hr): 1600 units/hrStart: 10-20-2023 End: ,400 Units, intravenous, Once, On Shakira 10/20/23 at 1700, For 1 dose, Maximum 10,000 units. Look-alike/sound-alike medication - verify indication for use. Observe for bleeding.Start: ,000 Units, intravenous, As needed, for Anti-Xa less than 0.2 IU/mL, Starting on Shakira 10/20/23 at 1638, Look-alike/sound-alike medication - verify indication for use. Observe for bleeding.Start: 10-06-2023 End: 07-72-6135vjeqPOTtzqr hydrochloride 25 mg oral tablet (20 sources)AntihistamineStart: 10-07-2023 End: 21-28-8678Tlgkg: 04-18-2023 End: 13-43-4183etmq 50 mg by mouth twice dailyHydroxyzine Hcl Discontinued 50 MG PO Twice daily April 18, 2023 1:00am May 10, 2023 9:24amStart: 07-18-2019 End: 58-05-5566Gvcwntexnqq Hcl Discontinued 50 MG PO As Directed November 28, 2019 12:00am June 09, 2020 12:10pmtake 1-2 tablets by mouth once daily as needed for sleephydrOXYzine (ATARAX) 50 mg tablet Take 1-2 tablets (50-100 mg total) by mouth nightly as needed (sleep). Suspendediopamidol (ISOVUE-370) 76 % injection 75 mL (1 source)Start: 02-07-2024 End: 41-31-0497sdqh 1 dose intravenously once75 mL, IntraVENous, IMG ONCE PRN, 1 dose, Starting on Tue02/07/24 at 1331, Until Tue02/07/24 at 1335, Other1 ml ketorolac tromethamine 15 mg/ml cartridge (2 sources)Nonsteroidal Anti-inflammatory Drug, Cyclooxygenase InhibitorStart: 11-13-2024 End: 05-61-139063 mg, IntraVENous, Once, 1 dose, On Tue11/13/24 at 2300, Do not administer for more than 5 dayskit for prep of Qf-51r-eqnjeio 2.5 mg recon soln 5 millicurie (1 source)Start: 10-20-2023 End: millicurie, intravenous, Once in imaging, contrast, Radiopharmaceutical, Starting on Shakira 10/20/23 at 1119, For 1 dose10 ml lidocaine hydrochloride 10 mg/ml injection (2 sources)Antiarrhythmic, Amide Local AnestheticStart: 10-07-2023 End: 85-02-0038Sjymb: 10-05-2023 End: 51-30-9472awpydrioqt 2.5 mg oral tablet (20 sources)Angiotensin Converting Enzyme InhibitorStart: 34-10-8506Knolq: 07-08-2021 End: 24-02-9484rdcz 1 tablet by mouth once dailyLisinopril Active 2.5 MG PO Daily 90 90 June 07, 2023 4:30pm TAKE 1 TABLET BY MOUTH ONCE DAILYmagnesium hydroxide 80 mg/ml oral suspension (1 source) End: 41-57-2001rlmf 30 mL by mouth once daily as needed for constipation magnesium hydroxide (MILK OF MAGNESIA) 400 MG/5ML suspension Take 30 mLs by mouth daily as needed for Constipation 02/07/2024 Discontinued (LIST CLEANUP) magnesium oxide 400 mg oral tablet (3 sources)Start: 10-23-2023 End: 94-98-4976mbdi 400 mg by mouth oogt891 mg, oral, Once, On [place] 10/23/23 at 0545, For 1 doseStart: 10-11-2023 End: 19-48-4385Fpbbg: 09-08-2023 End: 42-97-4173onjx 400 mg by mouth ssib930 mg, oral, Once, On [facility] 09/08/23 at 1305, For 1 dosemeclizine hydrochloride 25 mg oral tablet (1 source)AntiemeticStart: 02-11-2020 End: 26-98-9425eqye 25 mg by mouth three times dailyMeclizine Discontinued 25 MG PO Three times daily February 11, 2020 1:00am April 1848:56am meloxicam 7.5 mg oral tablet (1 source)Nonsteroidal Anti-inflammatory DrugStart: 07-01-2017 End: 80-01-0378Gxcbeknpg Discontinued 7.5 MG TABLET As Directed July 01, 2017 12:00am January 23, 2018 12:56pmmethocarbamol 750 mg oral tablet (1 source)Muscle RelaxantStart: 07-01-2017 End: 12-92-6165Krkbjziadjtqz Discontinued 750 MG TABLET As Directed July 01, 2017 12:00am January 23, 2018 12:56pmmethylPREDNISolone 125 mg injection (1 source)CorticosteroidStart: 09-08-2023 End: 51-83-6644770 mg, intravenous, Once, On Tue09/08/23 at 0945, For 1 dose, May alter blood glucose or insulin requirements. Look-alike/sound-alike medication - verify indication for use.24 hr metoprolol succinate 25 mg extended release oral tablet (20 sources)beta-Adrenergic BlockerStart: 09-33-7030agxc 12.5 mg by mouth twice daily12.5 mg, Oral, 2 TIMES DAILY, First dose on Tue11/14/24 at 0215, Until DiscontinuedStart: 74-14-4634cbld 1 tablet by mouth in the morningmetoprolol tartrate (LOPRESSOR) 25 mg tablet Take 1 tablet (25 mg total) by mouth in the morning. 02/23/2024 ActiveStart: 23-22-2771Xkwau: 36-55-9250fqms 25 mg by mouth once daily25 mg, oral, Daily, First dose on Tue10/20/23 at 1300, Look-alike/sound-alike medication - verify indication for use. Do not crush or chew.Start: 09-13-2023 End: 43-91-2950ecal 12.5 mg by mouth twice daily12.5 mg, Oral, 2 TIMES DAILY, First dose on Tue02/07/24 at 2100, Until DiscontinuedStart: 09-13-2023 End: 35-30-7854untw 1 tablet by mouth every twenty-four hours in the morning metoprolol succinate XL (TOPROL XL) 25 mg 24 hr tablet Take 1 tablet (25 mg total) by mouth in the morning. 30 tablet 11/01/2023 ActiveStart: 19-15-7857vbhd 12.5 mg by mouth twice daily12.5 mg, oral, 2 times daily, First dose on Shakira /18/24 at 2100, Look-alike/sound-alike medication - verify indication for use. Start: 44-47-6923Xlsiqmxdvd Tartrate Active 12.5 MG PO Twice daily May 10, 2023 9:21am TAKE 1/2 (ONE-HALF) OF A TABLET BY MOUTH TWICE DAILY Orally Twice a dayStart: 04-18-2023 End: 39-54-0740Zqmbbqjeks Tartrate Discontinued 25 MG PO April 18, 2023 1:00am May 10, 2023 9:24am FreeTextSig: TAKE 1/2 (ONE-HALF) OF A TABLET BY MOUTH TWICE DAILY Orally Twice a day; Note: Source Status:Refill; Refills: 1; Provider: Claudia Weiner NStart: 01-23-2018 End: 97-96-3948Iytesxfuwu Tartrate Discontinued TABLET December 04, 2018 12:00am January 26, 2019 2:38pmStart: 07-01-2017 End: 69-51-8592Voseebkuxk Tartrate Discontinued 25 MG TABLET Twice daily July 01, 2017 12:00am July 01, 2017 3:28pmtake 12.5 mg by mouth twice daily Metoprolol Succinate 25 MG CS24 Take 12.5 mg by mouth 2 times daily Active Metoprolol Tartrate 25 mg TAKE 1/2 (ONE-HALF) OF A TABLET BY MOUTH TWICE DAILY Orally Twice a day for 90 days Active1 ml morphine sulfate 4 mg/ml cartridge (2 sources)Opioid AgonistStart: mg, IntraVENous, EVERY 4 HOURS PRN, Starting on Tue11/14/24 at 0239, Until Discontinued, Pain Severe (7-10), Pain Moderate (4-6) OR per patient request for pain score (7-10), If oral and IV narcotics ordered, use oral first and only use IV if oral is ineffective or cannot take oral. Do Not give oral and IV within 1 hour of each other unless specifically ordered.Start: 11-13-2024 End: 07-78-3799heir 1 dose by mouth every hour4 mg, IntraVENous, ONCE, 1 dose, On Tue11/13/24 at 2300, If oral and IV narcotics ordered, use oralfirst and only use IV if oral is ineffective or cannot take oral. Do Not give oral and IV within 1 hour of each other unless specifically ordered.naproxen 500 mg oral tablet (2 sources)Nonsteroidal Anti-inflammatory DrugStart: 03-21-2019 End: 59-76-9271ziwy 500 mg by mouth twice dailyNaproxen Discontinued 500 MG PO Twice daily March 21, 2019 1:00am May 03, 2019 2:29pmStart: 01-23-2018 End: 10-49-0481qsdr 500 mg by mouth twice daily at mealtimeNaproxen Discontinued 500 MG PO Twice daily January 23, 2018 1:00am September 07, 2018 2:33pm admi nister with food or milk24 hr oxybutynin chloride 5 mg extended release oral tablet (1 source)Cholinergic Muscarinic AntagonistStart: 07-01-2017 End: 50-12-0214Phmklyqdwi Chloride (Ditropan Xl) 5 mg Tablet Extended Release 24hr Discontinued 5 MG Twice daily July 01, 2017 12:00am January 23, 2018 12:56pmpantoprazole 40 mg delayed release oral tablet (13 sources)Proton Pump InhibitorStart: 10-12-2023 End: 24-76-5841[place]: 54-91-780402 mg, oral, Every morning before breakfast, First dose on Tue09/08/23 at 1515, Look-alike/sound-alike medication - verify indication for use. If patient is receiving enteral feeding, consider alterna tive PPI or continue IV pantoprazole until the delayed-release tablet can be taken orally, Indication: GERDStart: 11-28-2019 End: 10-24-9664mxiy 20 mg by mouth once dailyPantoprazole Discontinued 20 MG PO Daily November 28, 2019 12:00am April 18, 2023 8:56amStart: 07-26-2019 End: 50-92-7521yvts 20 mg by mouth once dailyPantoprazole Discontinued 20 MG PO Daily July 26, 2019 12:00am November 19, 2019 11:57amStart: 01-29-2019 End: 19-55-1223wmoh 20 mg by mouth once dailyPantoprazole Discontinued 20 MG PO Daily January 29, 2019 1:00am May 03, 2019 2:29pmPARoxetine hydrochloride 10 mg oral tablet (20 sources)Serotonin Reuptake InhibitorStart: 10-06-2023 End: 77-06-6507Xcxrq: 63-13-0237gmff 10 mg by mouth once daily10 mg, oral, Daily, First dose on Tue09/08/23 at 1530, Look-alike/sound-alike medication - verify indication for use.Start: 07-18-2019 End: 09-80-9276qnbv 10 mg by mouth once dailyParoxetine Hcl Active 10 MG PO Daily 90 July 15, 2023 11:41amperflutren lipid microspheres (DEFINITY) dilution injection 1.43 mg/10 mL (1 source)Start: 09-08-2023 End: mL, intravenous, Once in imaging, contrast, Starting on Tue09/08/23 at 1455, For 6 hours, Additional Imaging Orders, Dilute 1.3 mL of Definity with 8.7 mL 0.9% NaCl in 10 mL syringe Administer 2 mLperflutren (Definity) contrast if 2 contiguous segments of the LV are not well visualized. May repeat 2 mL dose until LV visualization is accomplished. Procedure total dose not to exceed 10 mL.phenol 14 mg/ml mucosal spray (1 source)Start: 10-09-2023 End: ml potassium chloride 0.1 meq/ml injection (4 sources)Start: 02-07-2024 End: 29-00-198874 mEq, IntraVENous, EVERY HOUR, 6 doses, First dose on Tue02/07/24 at 1700, Last dose on Tue02/07/24 at 2200, at 100 mL/hr, Potassium chloride doses are limited to a maximum of six consecutive doses before reassessment of laboratory values is needed.Start: 02-07-2024 End: 66-31-020488 mEq, Oral, ONCE, 1 dose, On Tue02/07/24 at 1230, Do not crush or break. Do not crush, chew, or suck on tablet. Tablet may also be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 CKD]Onset: 16-53-6857BhgpkxlFtxbynillocra mental health disorders (20 sources)Psychophysiologic insomnia; Translations: [Psychophysiologic insomnia]Onset: 90-72-7925YjimcowYbet disorders (20 sources)Major depressive disorder, single episode, unspecified; Translations: [Major depressive disorder]Onset: 375686-13-4607Tnjxptp Nutritional deficiencies (5 sources)Vitamin D deficiency; Translations: [Vitamin D deficiency, unspecified]Onset: 451242-42-0120EuglhusQpsnw aftercare (1 source)retirement (current) use of aspirin; Translations: [ALF CURRENT USE OF ASPIRIN]Onset: 54-37-1215CbjfxstzAfxcv aftercare (1 source)retirement (current) use of oral hypoglycemic drugs; Translations: [ALF USE ORAL HYPOGLYCEMIC DX]Onset: 60-31-9498UreqstswIubjr aftercare (2 sources)Encounter for therapeutic drug level monitoringOnset: 10-19-2021 Resolved: 21-57-2096WjfagvhnMaaxt circulatory disease (17 sources)Low blood pressure; Translations: [Hypotension, unspecified]Onset: 748525-20-6996ZqzggbwtEsuzd fractures (1 source)Wedge compression fracture of T11-T12 vertebra, sequela; Translations: [Wedge compression fracture of t11-T12 vertebra, sequela]Onset: 02-07-2024 EpisodicOther injuries and conditions due to external causes (3 sources)Unspecified injury of left wrist, hand and finger(s), initial encounter; Translations: [UNS INJ LT WRIST HAND FINGERS INIT]Onset: 08-13-2020 EpisodicOther male genital disorders (20 sources)Male erectile dysfunction, unspecified; Translations: [Erectile dysfunction]Onset: 11-26-2020 Resolved: 19-05-3170UkzjniiUiqcr nervous system disorders (20 sources)Chronic pain; Translations: [Other chronic pain]Onset: 08-24-2023 30-38-2245VgmiwreBlacz nervous system disorders (1 source)Other chronic pain; Translations: [Other chronic pain G89.29]Onset: 12-22-2020 Resolved: 09-13-4057ZxhdbfnKgqjq nervous system disorders (20 sources)Difficulty walking; Translations: [Difficulty in walking, not elsewhere classified]Onset: 126630-74-9489EtsivaxFbdwr non-traumatic joint disorders (20 sources)Finding of shoulder joint; Translations: [Other specific joint derangements of left shoulder, not elsewhere classified]ChronicOther nutritional; endocrine; and metabolic disorders (1 source)Morbid (severe) obesity due to excess calories; Translations: [MORBID SEVERE OBES D/T EXCESS LONNIE]Onset: 30-26-4845GlcfzjqUdeoo nutritional; endocrine; and metabolic disorders (1 source)Body mass index (BMI) 40.0-44.9, adult; Translations: [BODY MASS INDEX BMI 40.0-44.9 ADULT]Onset: 11-86-2262TarynplLurah nutritional; endocrine; and metabolic disorders (20 sources)Hypomagnesemia; Translations: [Hypomagnesemia]Onset: 09-22-2023 62-83-7768DnyrszxRvhzh nutritional; endocrine; and metabolic disorders (2 sources)Body mass index 40+ - severely obese; Translations: [Body mass index (BMI) 40.0-44.9, adult]Onset: 270986-56-3087IffjlsqFnava nutritional; endocrine; and metabolic disorders (20 sources)Obesity caused by energy imbalance; Translations: [Morbid (severe) obesity due to excess calories]Onset: 241317-39-1997MsbzlwzSrxok nutritional; endocrine; and metabolic disorders (2 sources)Hypomagnesemia; Translations: [Hypomagnesemia]Onset: 09-22-2023 ChronicPathological fracture (10 sources)Pathological fracture of thoracic vertebra; Translations: [Pathological fracture, other site, subsequent encounter for fracture with delayed healing]Onset: 205294-81-0705IhavisdeNfilxjto codes; unclassified (20 sources)Obstructive sleep apnea syndrome; Translations: [Obstructive sleep apnea (adult) (pediatric)]Onset: 811577-19-2884KwqazbnSxbfatqn codes; unclassified (3 sources)Obstructive sleep apnea (adult) (pediatric); Translations: [Obstructive sleep apnea (adult)(pediatric)]Onset: 485762-14-3568Nzmwpzg Residual codes; unclassified (3 sources)Pain, unspecified; Translations: [Pain, unspecified]Onset: 10-25-2023 EpisodicRespiratory failure; insufficiency; arrest (adult) (20 sources)Chronic respiratory failure with hypoxia; Translations: [Dependence on supplemental oxygen]Onset: 21-93-3257FtbjoahFzwmghngna (except in labor) (7 sources)Sepsis due to Escherichia coli [E. coli]; Translations: [Sepsis] Onset: 576264-87-2746QjdnxisyWmisjurlhfy; intervertebral disc disorders; other back problems (20 sources)Lumbosacral spondylosis without myelopathy; Translations: [Spondylosis without myelopathy or radiculopathy, lumbosacral region]Onset: 12-22-2020 Resolved: 64-95-5620LfdmiroSducqnbowfov (1 source)Pure hypercholesterolemia, unspecifiedOnset: 82-79-6751Ipolgwhdftwv (3 sources)Encounter for preprocedural cardiovascular examination; Translations: [Encounter for preprocedural cardiovascular examination]Onset: 04-13-2018 Unclassified (1 source)Athscl heart disease of [place] cor art w unsp ang pctrsOnset: 86-88-4841Apvrdgyrphec (1 source)CONTACT W/AND (SUSP) EXPOS COVID-19; Translations: [CONTACT W/AND (SUSP) EXPOS COVID-19]Onset: 37-44-6487Jysdzdgmbkzo (1 source)T 12 compression fractureOnset: 21-61-4020Bbcmbzgybhyw (1 source)EMS//Onset: 90-27-9130Ebtsprqudykm (1 source)Painful UrinationOnset: 98-11-1452Rgxwmjakoccx (1 source)EMSOnset: 89-51-1653Dhriehwyafgd (2 sources)Nephrolithiasis; Translations: [Nephrolithiasis]Onset: 10-31-2024 Urinary tract infections (11 sources)Acute cystitis; Translations: [Acute cystitis with hematuria]Onset: 541900-93-2340Aponwqgn Past or Other Problems Problem ClassificationProblemDateDocumented DateEpisodic/ChronicAcute and unspecified renal failure (20 sources)Acute renal failure syndrome; Translations: [Acute kidney failure, unspecified]Onset: 628540-55-6140JeywypjdOwvdonyni infection; unspecified site (20 sources)Bacteremia due to Methicillin resistant Staphylococcus aureus; Translations: [Bacteremia]Onset: 538443-15-2699HmwdmyuvOavmnmx dysrhythmias (20 sources)Tachycardia; Translations: [Tachycardia, unspecified]Onset: 249036-13-4691RdmqxxlqDsvvtpaspg associated with dizziness or vertigo (20 sources)Dizziness and giddiness; Translations: [Dizziness]Onset: 04-13-2018 87-39-1814OzztjlnbOyxtuvax atherosclerosis and other heart disease (7 sources)Presence of aortocoronary bypass graft; Translations: [Coronary angioplasty status]Onset: 23-14-9103LoscwywiDlildqmwny and other anemia (3 sources)Nutritional anemia, unspecified; Translations: [Unspecified deficiency anemia]Onset: 04-09-2021 Resolved: 33-68-5015VbhocnuzCryqwkrnbz and other anemia (20 sources)Macrocytic anemia; Translations: [Nutritional anemia, unspecified] Onset: 856260-52-3406GwbeyqyhTfjeqrrhag and other anemia (4 sources)Anemia; Translations: [Anemia, unspecified]Onset: 09-26-2018 38-82-6052LhmcjzbiKitbbvepyk and other anemia (3 sources)Megaloblastic anemia; Translations: [Other megaloblastic anemias, not elsewhere classified]Onset: 142280-56-8533SsczlaenXflyfakliu and other anemia (20 sources)Iron deficiency anemia secondary to inadequate dietary iron intake; Translations: [Other iron deficiency anemias]Onset: 746966-83-9205Fesxhgth Deficiency and other anemia (2 sources)Anemia, unspecified; Translations: [Anemia, unspecified]Onset: 78-78-0978PbuzlajuY Codes: Fall (4 sources)Fall; Translations: [Unspecified fall, initial encounter]Onset: 864889-35-8315SysklwnxBpbvr and electrolyte disorders (9 sources)Hypokalemia; Translations: [Hypokalemia]Onset: 770237-00-8463 EpisodicImmunizations and screening for infectious disease (1 source)Encounter for immunizationOnset: 04-09-2021 Resolved: 38-51-9045LghxpyxpWqmtxkp and fatigue (20 sources)Asthenia; Translations: [Weakness]Onset: EpisodicMood disorders (20 sources)Mood disordersOnset: 11-22-2023 Resolved: Nausea and vomiting (1 source)Nausea with vomiting, unspecified; Translations: [Nausea with vomiting, unspecified]Onset: 40-70-4701InxbtmjuDnatntnonzv chest pain (20 sources)Chest pain, unspecified; Translations: [Intercostal pain]Onset: 06-02-2020 Resolved: 52-37-6013LrlobeooHdsvi aftercare (2 sources)Other [place] [facility] (current) drug therapy; Translations: [OTH ALF CURRENT DRUG THERAPY]Onset: 34-85-8021DtkkidisNuzoz aftercare (2 sources)Long-term current use of inhaled steroid; 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]Onset: 282038-25-2045MdiuapvyZzqen aftercare (1 source)Drug therapy finding; Translations: [Other bed bug exterminator (current) drug therapy]53-30-8117JuzyihsvAoxpq aftercare (2 sources)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; Translations: [retirement (current) use of insulin (Multi)]Onset: 38-43-6794ObxzdxzpUxyqf circulatory disease (2 sources)Hypotension, unspecified; Translations: [Hypotension, unspecified] Onset: 15-58-7636QcnugxjcXkrqg connective tissue disease (1 source)Pain in right finger(s); Translations: [Thumb pain, right M79.644] Onset: 12-22-2020 Resolved: 20-77-4612KwzwirhoFghta connective tissue disease (20 sources)Rotator cuff arthropathy of left shoulder; Translations: [Unspecified rotator cuff tear or rupture of left shoulder, not specified as traumatic]Onset: 001640-41-6177UjtuloddCvwrg connective tissue disease (20 sources)Nontraumatic rotator cuff tear; Translations: [Unspecified rotator cuff tear or rupture of right shoulder, not specified as traumatic]Onset: 090124-23-5387UorxovirZjaaz connective tissue disease (20 sources)Muscle weakness; Translations: [Muscle weakness (generalized)]Onset: 951739-73-4503XegmudosSmqoq fractures (2 sources)Wedge compression fracture of T11-T12 vertebra, initial encounter for closed fracture; Translations: [Wedge compression fracture of T11-T12 vertebra, initial encounter for closed fracture]Onset: 83-82-1196DmzcvamrSqfvd fractures (19 sources)Fracture of twelfth thoracic vertebra; Translations: [Wedge compression fracture of T11-T12 vertebra, sequela]Onset: 483398-98-3360 EpisodicOther fractures (1 source)Stable burst fracture of T11-T12 vertebra, initial encounter for closed fracture; Translations: [Stable burst fracture of t11-T12 vertebra, initial encounter for closed fracture]Onset: 90-01-3476FdafdryjLeppg fractures (1 source)Wedge compression fracture of unspecified thoracic vertebra, initial encounter for closed fracture;Translations: [Wedge compression fracture of unspecified thoracic vertebra, initial encounter for closed fracture]Onset: 66-62-6666MkptwyxsUajhy lower respiratory disease (5 sources)Shortness of breath; Translations: [Shortness of breath]Onset: 59-89-4398HmkvyjedSblvv lower respiratory disease (3 sources)Shortness of breath; Translations: [SHORTNESS OF BREATH]Onset: 86-88-3011RoaxrbasBvuod lower respiratory disease (20 sources)Dyspnea; Translations: [Dyspnea, unspecified]Onset: 07-23-2023 78-75-2786LqyjujvgFanct lower respiratory disease (20 sources)Solitary nodule of lung; Translations: [Solitary pulmonary nodule] Onset: 027891-12-1243HycusisoUiffz lower respiratory disease (1 source)Dyspnea on exertion; Translations: [Other forms of dyspnea]09-08-2023 EpisodicOther lower respiratory disease (1 source)Acute respiratory distress; Translations: [Acute respiratory distress] Onset: 07-29-8830FzdtdaiiQrgpo lower respiratory disease (1 source)Respiratory distressOnset: 21-83-4349LxjppcgoLbodp lower respiratory disease (1 source)Other forms of dyspnea; Translations: [Other forms of dyspnea]Onset: 76-59-4200AmtxawtiMfmdw screening for suspected conditions (not mental disorders or infectious disease) (4 sources)Encounter for screening for malignant neoplasm of prostate; Translations: [Other specified abnormalfindings of blood chemistry]Onset: 07-08-2021 Resolved: 64-63-8668ZhlnbskaIdyuefkr; pneumothorax; pulmonary collapse (20 sources)Pleural effusion; Translations: [Pleural effusion, not elsewhere classified]Onset: 355075-91-3235EclbdcufSqiwofndb (except that caused by tuberculosis or sexually transmitted disease) (20 sources)Community acquired pneumonia; Translations: [Pneumonia, unspecified organism]Onset: 488278-93-4537CvhlusgyYfamh (20 sources)Shock; Translations: [Shock, unspecified]Onset: EpisodicSpondylosis; intervertebral disc disorders; other back problems (7 sources)Low back pain; Translations: [Backache]Onset: 12-22-2020 Resolved: 53-51-4622TncrxlidTfpqmvg (6 sources)Syncope; Translations: [Syncope and collapse]Onset: 03-08-2024 37-51-5726Uzdfrqol Results Test NameValueInterpretationReference RangeFacilityFollow-Upon 11-26-2024 Follow-[id number] Brian Mandel 1950 Date Provider Department Center 11/26/2024 TRISTAN QUINTERO [facility] Second Fl No family history on file Level of Service:23446 [place] OFFICE/OUTPATIENT ESTABLISHED LOW MDM 20 MIN Reason for Visit and Comments: Nephrolithiasis [645950] - Post op no hematuriaNormalUniversity of St. Luke'S Health [facility] The Woodlands HospitalCult,Urineon [id number],UrineSpecimen Description .URINE Culture NO SIGNIFICANT GROWTH Report Status FINAL 11/14/2024NormalMerAnderson SanatoriumComment on above:Performed By: #### URC #### [facility] [address] [place] [address] Structural Drafter: Eli Amador Metabolic Panelon [id number] gap [Moles/Vol]13 mmol/L9 - 16 mmol/LBon SecCalcivis HealthCalcium [Mass/Vol]9.4 mg/dL8.6 - 10.4 mg/dLBon SecCalcivis HealthChloride [Moles/Vol]102 mmol/L98 - 107 mmol/LBon SecCalcivis HealthCO2 [Moles/Vol]19 mmol/LLow20 - 31 mmol/LBon SecDietBetterCreatinine [Mass/Vol]1.2 mg/dL0.7 - 1.2 mg/dLBon SecCalcivis HealthEst, Glom Filt Rate63- PINFBon SecDietBetterComment on above: These results are not intended for use in patients <18 years of age. eGFR results are calculated without a race factor using the 2020 CKD-EPI equation. Careful clinical correlation is recommended, particularly when comparing to results calculated using previous equations. The CKD-EPI equation is less accurate in patients with extremes of muscle mass, extra-renal metabolism of creatine, excessive creatine ingestion, or following therapy that affects renal tubular secretion. Glucose [Mass/Vol]106 mg/jQEtsv65 - 99 mg/dLBon [facility] Interpretation and review of laboratory resultsAbnormalBon SecDietBetter Potassium [Moles/Vol]3.9 mmol/L3.7 - 5.3 mmol/LBon SecCalcivis HealthSodium [Moles/Vol]134 mmol/ZJho879 - 145 mmol/LBon Secours Mercy HealthUrea nitrogen [Mass/Vol]11 mg/dL8 - 23 mg/dLBon [facility]Bon [facility] Basic Metabolic Profon [id number] gap [Moles/Vol]13 mmol/LNormal9-16[facility] HospitalComment on above:Performed By: #### CDP, BMP #### [facility] [address] [place] [address] Structural Drafter: KOFI Amadoralcium [Mass/Vol]9.4 mg/dLNormal8.6-10.4Prom[facility] Park HospitalComment on above:Performed By: #### CDP, BMP #### [facility] [address] [place] [address] Structural Drafter: KOFI Amadorhloride [Moles/Vol]102 mmol/GHmspny95-821NugklPromedica Bay Park HospitalComment on above:Performed By: #### CDP, BMP #### [facility] [address] [place] [address] Structural Drafter: Gurjit Solis MDCO2 [Moles/Vol]19 mmol/JJrv45-14FdoqqPromedica Bay Park HospitalComment on above:Performed By: #### CDP, BMP #### [facility] [address] [place] [address] Structural Drafter: KOFI Amadorreatinine [Mass/Vol]1.2 mg/dLNormal0.7-1.2MLos Angeles Community HospitalComment on above:Performed By: #### CDP, BMP #### [facility] [address] [place] [address] Structural Drafter: Gurjit Solis MDGFR/1.73 sq M.predicted among non-blacks MDRD (S/P/Bld) [Vol rate/Area]63 mL/min/{1.73_m2}Normal>60MerAnderson SanatoriumComment on above:Result Comment: These results are not intended for use in patients <18 years of age. eGFR results are calculated without a race factor using the 2020 CKD-EPI equation. Careful clinical correlation is recommended, particularly when comparing to results calculated using previous equations. The CKD-EPI equation is less accurate in patients with extremes of muscle mass, extra-renal metabolism of creatine, excessive creatine ingestion, or following therapy that affects renal tubular secretion.Performed By: #### CDP, BMP #### [address] [address] Structural Drafter: Gurjit Solis MDGlucose [Mass/Vol]106 mg/xKLizn09-46IgfmuLos Angeles Community HospitalComment on above:Performed By: #### CDP, BMP #### [place] [address] Structural Drafter: Gurjit Solis MDPotassium [Moles/Vol]3.9 mmol/LNormal3.7-5.3 [facility] HospitalComment on above:Performed By: #### CDP, BMP #### [place] [address] Structural Drafter: Gurjit Solis MDSodium [Moles/Vol]134 mmol/ZIcq510-836UitewPromedica Bay Park HospitalComment on above:Performed By: #### HUMBERTO, BMP #### [facility] [address] [place] [address] Structural Drafter: Gurjit Solis MDUrea nitrogen [Mass/Vol]11 mg/dLNormal8-23Prom[facility] HospitalComment on above:Performed By: #### CDP, BMP #### [facility] [address] [place] [address] Structural Drafter: Gurjit Solis [facility] with Auto Differentialon [id number] (Bld) [#/Vol]0.06 10*3/uLBon Secours [facility] HealthBasophils/100 WBC (Bld)1 %0 - 2 %[facility] HealthEosinophils (Bld) [#/Vol]0.16 10*3/uLBon Secours Mercy HealthEosinophils/100 WBC (Bld)2 %1 - 4 %[facility] Erythrocyte distribution width (RBC) [Ratio]13.6 %11.8 - 14.4 %[facility] Medical CenterHematocrit (Bld) [Volume fraction]31.5 %Low40.7 - 50.3 %[facility] Medical CenterHemoglobin (Bld) [Mass/Vol]10.4 g/dLLow13.0 - 17.0 g/dLBon SecSumma Health Akron CampusImmature granulocytes (Bld) [#/Vol]0.05 10*3/uLBon [facility] Immature granulocytes/100 WBC (Bld)1 %Jelg3GngSentara Williamsburg Regional Medical Center Interpretation and review of laboratory resultsAbnormalSentara [facility]burg [facility] Center Lymphocytes/100 WBC (Bld)24 %24 - 43 %[facility] CenterLymphocytes/100 WBC (Bld)2.37 %[facility] HospitalH (RBC) [Entitic mass]34.6 waZbxl83.2 - 33.5 pgBon [facility] HospitalHC (RBC) [Mass/Vol]33.0 g/dL28.4 - 34.8 g/dLBon [facility] Memorial HospitalV (RBC) [Entitic vol]104.7 mVTksg75.6 - 102.9 fLSentara Williamsburg Regional Medical CenterMonocytes/100 WBC (Bld)9 %3 - 12 %[facility] Monocytes/100 WBC (Bld)0.87 %[facility] Medical CenterNeutrophils/100 WBC (Bld)63 %36 - 65 %[facility] CenterNucleated RBC/100 WBC (Bld) [Ratio]0.0 %0.0 per 100 WBCSentara Williamsburg Regional Medical CenterPlatelet mean volume (Bld) [Entitic vol]10.9 fL8.1 - 13.5 fLSentara Williamsburg Regional Medical CenterPlatelets (Bld) [#/Vol]178 10*3/uLBon SecSumma Health Akron CampusRBC (Bld) [#/Vol]3.01 10*6/uLLow4.21 - 5.77 m/uLBon SecSumma Health Akron CampusRBC (Bld) [#/Vol]MACROCYTOSIS PRESENTBon [facility] Segmented neutrophils/100 WBC (Bld)6.41 %Bon [facility] Medical CenterBC other (Bld) [#/Vol]9.9Bon [facility] ShawBon [facility] ShawCBC with Diffon [id number]. Basophil0.06 k/uLNormal0.00-0.20[facility] Comment on above:Performed By: #### CDP, BMP #### [facility] [address] [place] [address] Structural Drafter: MDAbs. MarjorieImm.Granulocyte0.05 k/uLNormal0.00-0.30Prom[facility] HospitalComment on above:Performed By: #### HUMBERTO, BMP #### [facility] [address] [place] [address] Structural Drafter: Jan Amador.Neutrophil (Seg)6.41 k/uLNormal1.50-8.10 [facility] HospitalComment on above:Performed By: #### HUMBERTO, BMP #### [facility] [address] [place] [address] Structural Drafter: Gurjit Solis MDBasophils/100 WBC (Bld)1 %Normal0-2MLos Angeles Community HospitalComment on above:Performed By: #### CDP, BMP #### [facility] [address] [place] [address] Structural Drafter: Gurjit Solis MDEosinophils (Bld) [#/Vol]0.16 10*3/uLNormal 0.00-0.44Prom[facility] HospitalComment on above:Performed By: #### CDP, BMP #### [facility] [address] [place] [address] Structural Drafter: ROSARIO Amadorosinophils/100 WBC (Bld)2 %Normal1-4[facility] HospitalComment on above:Performed By: #### CDP, BMP #### [address] [address] Structural Drafter: Gurjit Solis MDErythrocyte distribution width (RBC) [Ratio]13.6 %Omuhzl61.8-14.4Prom[facility] HospitalComment on above:Performed By: #### HUMBERTO, BMP #### [address] [address] Structural Drafter: Gurjit Solis MDHematocrit (Bld) [Volume fraction]31.5 %Low 40.7-50.3Mmetrohealth parma medical centery Robert H. Ballard Rehabilitation HospitalComment on above:Performed By: #### HUMBERTO, BMP #### [address] [address] Structural Drafter: Gurjit Solis MDHemoglobin (Bld) [Mass/Vol]10.4 g/dLLow13.0-17.0 [facility] HospitalComment on above:Performed By: #### HUMBERTO, BMP #### [address] [address] Structural Drafter: Gurjit Solis MDImmature granulocytes/100 WBC (Bld)1 %Tnqb9KymuzPromedica Bay Park HospitalComment on above:Performed By: #### HUMBERTO, BMP #### [place] [address] Structural Drafter: Gurjit Solis MDLymphocytes (Bld) [#/Vol]2.37 10*3/uLNormal 1.10-3.70[facility] HospitalComment on above:Performed By: #### HUMBERTO, BMP #### [address] [address] Structural Drafter: Gurjit Solis MDLymphocytes/100 WBC (Bld)24 %Ehtrau44-34AwwnzPromedica Bay Park HospitalComment on above:Performed By: #### CDP, BMP #### [address] [address] Structural Drafter: MONALISA AmadorCH (RBC) [Entitic mass]34.6 wiBsaj02.2-33.5 [facility] HospitalComment on above:Performed By: #### CDP, BMP #### [address] [address] Structural Drafter: MONALISA AmadorCHC (RBC) [Mass/Vol]33.0 g/rJBvzocd37.4-34.8 [facility] HospitalComment on above:Performed By: #### CDP, BMP #### [address] [address] Structural Drafter: MONALISA AmadorCV (RBC) [Entitic vol]104.7 hKWhfu86.6-102.9 [facility] HospitalComment on above:Performed By: #### CDP, BMP #### [address] [address] Structural Drafter: MONALISA Amadoronocytes (Bld) [#/Vol]0.87 10*3/uLNormal 0.10-1.20[facility] HospitalComment on above:Performed By: #### CDP, BMP #### [address] [address] Structural Drafter: MONALISA Amadoronocytes/100 WBC (Bld)9 %Normal3-12[facility] HospitalComment on above:Performed By: #### CDP, BMP #### [address] [address] Structural Drafter: Gurjit Solis MDNeutrophil (Seg)63 %Fckykj55-95VrctfPromedica Bay Park HospitalComment on above:Performed By: #### CDP, BMP #### [facility] [address] [place] [address] Structural Drafter: Gurjit Solis MDNRBC Automated0.0 per 100 WBCNormal0.0Prom[facility] HospitalComment on above:Performed By: #### CDP, BMP #### [address] [address] Structural Drafter: Kyle Amadortehannah mean volume (Bld) [Entitic vol]10.9 fL Normal8.1-13.5Prom[facility] HospitalComment on above:Performed By: #### CDP, BMP #### [address] [address] Structural Drafter: Kyle Amadortelets (Bld) [#/Vol]178 10*3/fAIthwiw171-851 [facility] HospitalComment on above:Performed By: #### CDP, BMP #### [address] [address] Structural Drafter: FLOR AmadorBC (Bld) [#/Vol]3.01 10*6/uLLow4.21-5.77Prom[facility] Park HospitalComment on above:Performed By: #### CDP, BMP #### [address] [address] Structural Drafter: TEQUILA Amador morphology finding Nom (Bld)MACROCYTOSIS PRESENTNormalPromedica Bay Park HospitalComment on above:Performed By: #### CDP, BMP #### [address] [address] Structural Drafter: SHAWN AmadorBC (Bld) [#/Vol]9.9 10*3/uLNormal3.5-11.3MLos Angeles Community HospitalComment on above:Performed By: #### CDP, BMP #### [address] [address] Structural Drafter: Gurjit Solis, MDCT ABDOMEN PELVIS WO CONTRASTon [id number] ABDOMEN PELVIS WO CONTRASTEXAMINATION: CT OF THE ABDOMEN AND PELVIS WITHOUT [...] Organs: Nodular liver. Spleen normal. Pancreas normal. Adrenals normal. Gallbladder normal. Nonobstructing nephroliths bilaterally. 12 x 6 mm urolith left renal pelvis. No hydronephrosis. GI/Bowel: . small hiatal hernia. Small and large bowel normal. Appendix normal. Pelvis: Bilateral fat containing inguinal hernias. Bilateral fat containing inguinal hernias. Debris or hemorrhage noted within the bladder dependently. Prostate calcifications noted. Peritoneum/Retroperitoneum: Aorto bi-iliac stent. Infrarenal abdominal aortic aneurysm measures 31 mm. Calcified plaque along the aorta and its branches. Retroaortic left renal vein. IVC normal. [...] hernias. 9. Compression fracture and vertebroplasty T12. Interpreted by: Jeromy Vasquez MD Signed by: Jeromy Vasquez MD 11/13/24 Final resultNormalMercy Robert H. Ballard Rehabilitation HospitalCT Abdomen and Pelvis WO contraston . 12 x 6 mm urolith left renal pelvis. No hydronephrosis. 2. Nonobstructing nephroliths bilaterally. 3. Cirrhosis. 4. Aorto bi-iliac stent. Infrarenal abdominal aortic aneurysm measures 31 mm. 5. Cardiomegaly and prosthetic aortic valve. 6. Small bilateral pleural effusions. 7. Small hiatal hernia. 8. Bilateral fat containing inguinal hernias. 9. Compression fracture and vertebroplasty T12. [facility] CONSOLIDATEDEXAMINATION: CT OF THE ABDOMEN AND PELVIS WITHOUT [...] Organs: Nodular liver. Spleen normal. Pancreas normal. Adrenals normal. Gallbladder normal. Nonobstructing nephroliths bilaterally. 12 x 6 mm urolith left renal pelvis. No hydronephrosis. GI/Bowel: . small hiatal hernia. Small and large bowel normal. Appendix normal. Pelvis: Bilateral fat containing inguinal hernias. Bilateral fat containing inguinal hernias. Debris or hemorrhage noted within the bladder dependently. Prostate calcifications noted. Peritoneum/Retroperitoneum: Aorto bi-iliac stent. Infrarenal abdominal aortic aneurysm measures 31 mm. Calcified plaque along the aorta and its branches. Retroaortic left renal vein. IVC normal. No pathologic lymphadenopathy. Bones/Soft Tissues: Compression fracture and vertebroplasty T12. [facility] Jeromy Caballero MD - 11/13/2024 EXAMINATION: CT OF THE [...] Organs: Nodular liver. Spleen normal. Pancreas normal. Adrenals normal. Gallbladder normal. Nonobstructing nephroliths bilaterally. 12 x 6 mm urolith left renal pelvis. No hydronephrosis. GI/Bowel: . small hiatal hernia. Small and large bowel normal. Appendix normal. Pelvis: Bilateral fat containing inguinal hernias. Bilateral fat containing inguinal hernias. Debris or hemorrhage noted within the bladder dependently. Prostate calcifications noted. Peritoneum/Retroperitoneum: Aorto bi-iliac stent. Infrarenal abdominal aortic aneurysm measures 31 mm. Calcified plaque along the aorta and its branches. Retroaortic left renal vein. IVC normal. [...] hernias. 9. Compression fracture and vertebroplasty T12. [facility] Abdomen and Pelvis WO contrastOrdered By: Jeromy Vasquez on [id number] Work Phone: Microscopic Urinalysison [id number] LM.LPF (Urine sed) [#/Area]NoneBon [facility] ShawEpithelial cells LM.HPF (Urine sed) [#/Area]0 TO 2Bon [facility], [facility] ShawRBC LM.HPF (Urine sed) [#/Area]TOO NUMEROUS TO COUNTBon [facility], [facility] ShawWBC LM.HPF (Urine sed) [#/Area]50 TO 100Bon [facility] ShawBon SecSumma Health Akron CampusNo Panel Informationon [id number] Study observation (narrative)Bon [facility] ShawUA w/Reflex Cultureon [id number], SemiQt,UrNegativeNormalNEGMerAnderson SanatoriumComment on above:Performed By: #### UMRADHA, UAX #### [facility] [address] [place] [address] Structural Drafter: Shayna Amador UrineLARGEAbnormAvita Health System Bucyrus HospitalComment on above:Performed By: #### UMMOLLYO, UAX #### [facility] [address] [place] [address] Structural Drafter: KOFI Amadorlarity (U)TurbidAbnormalCLEARMercOrange Coast Memorial Medical CenterComment on above:Performed By: #### UMICAO, UAX #### [facility] [address] [place] [address] Structural Drafter: KOFI Amadorolor (U)RedAbnormalYELMerAnderson SanatoriumComment on above:Result Comment: INTERPRET WITH CAUTION DUE TO INTENSE COLOR OF URINE.Performed By: #### UMICAO, UAX #### [facility] [address] [place] [address] Structural Drafter: Va Amadorose Ql (U)NegativeNormalNEGPromedica Bay Park HospitalComment on above:Performed By: #### UMICAO, UAX #### [facility] [address] [place] [address] Structural Drafter: Gurjit Solis MDKetones Ql (U)NegativeNormalNEGPromedica Bay Park HospitalComment on above:Performed By: #### REECE UAX #### [facility] [address] [place] [address] Structural Drafter: Gurjit Solis MDLeukocyte esterase Test strip Ql (U)LARGE AbnormalNEGPromedica Bay Park HospitalComment on above:Performed By: #### REECE UAX #### [facility] [address] [place] [address] Structural Drafter: Marii Amadortrite,UrNegativeNormalNEGPromedica Bay Park HospitalComment on above:Performed By: #### REECE UAX #### [facility] [address] [place] [address] Structural Drafter: ALEXANDRIA Amador,Ur7.2Jejtji8.0-8.0Promedica Bay Park HospitalComment on above:Performed By: #### REECE UAX #### [facility] [address] [place] [address] Structural Drafter: Thomas Amador Ql (U)4+ mg/dLAbnormalNEGPromedica Bay Park HospitalComment on above:Performed By: #### REECE UAX #### [facility] [address] [place] [address] Structural Drafter: NOAH Amadorpec. [place],Ur1.237Qazrem4.005-1.030Promedica Bay Park HospitalComment on above:Performed By: #### REECE UAX #### [facility] [address] [place] [address] Structural Drafter: Gurjit Solis MDUrobilinogen,UrNormalNormal0.0-1.0Promedica Bay Park HospitalComment on above:Performed By: #### UMICAO, UAX #### [facility] [address] [place] [address] Structural Drafter: GUERO Amador.doppler Scrotum and testicleon 11-13-2024 Unremarkable testicular ultrasound with normal Doppler flow. Nikki Serna MD - 11/13/2024 EXAMINATION: ULTRASOUND OF THE [...] demonstrates normal homogeneous echotexture without focal lesion. No evidence of testicular microlithiasis. Doppler Evaluation: There is normal arterial and venous Doppler flow within the testicle. Scrotal Sac: No evidence of hydrocele. Epididymis: No acute abnormality. Left: Carroin Scale: The left testicle demonstrates normal homogeneous echotexture without focal lesion. No evidence of testicular microlithiasis. Doppler Evaluation: There is normal arterial and venous Doppler flow within the testicle. Scrotal Sac: No evidence of hydrocele. Epididymis: No acute abnormality. IMPRESSION: Unremarkable testicular ultrasound with normal Doppler flow. [facility].doppler Scrotum and testicleOrdered By: Nikki Austin on [id number] Medical Center Work Phone: Urinalysis with Reflex to Cultureon 11-13-2024 Bilirubin Ql (U)NegativeNEGATIVESentara Williamsburg Regional Medical CenterClarity (U)Turbid AbnormalClearBon [facility] ShawColor (U)RedAbnormalYellowSentara Williamsburg Regional Medical CenterComment on above:INTERPRET WITH CAUTION DUE TO INTENSE COLOR OF URINE. Glucose Test strip (U) [Mass/Vol]NegativeNEGATIVE mg/dLBon [facility] Hemoglobin Auto test strip Ql (U)LARGEAbnormalNEGATIVESentara Williamsburg Regional Medical Center Interpretation and review of laboratory resultsAbnormalBon [facility] Ketones (U) [Mass/Vol]NegativeNEGATIVE mg/dLBon [facility] ShawLeukocyte esterase Test strip Ql (U)LARGEAbnormalNEGATIVEBon [facility] HealthNitrite Ql (U)NegativeNEGATIVEBon [facility] ShawpH (U)7.5 [pH]5.0 - 8.0Sentara Williamsburg Regional Medical CenterProtein (U) [Mass/Vol]4+AbnormalNEGATIVE mg/dLBon [facility] ShawSpecific gravity (U) [Rel density]1.0161.005 - 1.030Bon [facility], [facility] ShawUrobilinogen Qn (U)Normal0.0 - 1.0 EU/dLBon [facility] HospitalUrinalysis,Microon [id number]cRgvmSzcgxk3-6Fjtuc Robert H. Ballard Rehabilitation HospitalComment on above:Performed By: ###MASTER LÓPEZ #### [facility] [address] [place] [address] Structural Drafter: Gurjit Solis MDEpithelial cells LM Ql (Urine sed)0 TO 2Normal 0-5Promedica Bay Park HospitalComment on above:Performed By: ###JOSE ELIAS LÓPEZX #### [facility] [address] [place] [address] Structural Drafter: Tejas Amador RBC'sTOO NUMEROUS TO COUNTNormal0-2Mer[facility] Rehabilitation HospitalComment on above:Performed By: #### REECE UAX #### [facility] [address] [place] [address] Structural Drafter: Tejas Amador WBC's50 TO 459Zknttt2-8CauzqAnderson SanatoriumComment on above:Performed By: ###Carolyn NEWELL UAX #### [facility] [address] [place] [address] Structural Drafter: Gurjit Solis MD30on [id number] patient is Moderately Stable - Low risk of patient condition declining or worsening The patient's goals for the shift include comfort, rest The clinical goals for the shift include stable vitals and labs, comfort, rest, safetyNormalUniversWilson Street HospitalBASIC METABOLIC PANELon 21-19-5159Nculs gap [Moles/Vol]11 mmol/LNormal7-20UnMain Campus Medical CenterComment on above:Performed By: #### [id number] #### [facility] ([facility]) [address] [place], [place] [address]Lhwalkd [Mass/Vol]8.7 mg/dLNormal8.6-10.3UnMain Campus Medical CenterComment on above:Performed By: #### [id number] #### [facility] ([facility]) [address] [place], [place] [address]Hjbhxnzz [Moles/Vol]106 mmol/AWbppiz58-452AzhamdrjvaMain Campus Medical CenterComment on above:Performed By: #### [id number] #### [facility] ([facility]) [address] [place], [place] [address]FA8 [Moles/Vol]24 mmol/WWpmzrh58-24QftxndkvlrMain Campus Medical CenterComment on above:Performed By: #### [id number] #### [facility] ([facility]) [address] [place], [place] [address]Xvoheulilg [Mass/Vol]1.15 mg/dLNormal0.70-1.30UnMain Campus Medical CenterComment on above:Performed By: #### [id number] #### [facility] ([facility]) [address] [place], [place] [address]ERJRXVUCIW FILTRATION RATE ML/MIN/1.73 SQ M.MIWQCOACL75.0 mL/min/1.73m*2Normal>60.0UnMain Campus Medical CenterComment on above: Result Comment: The [facility]???s estimated glomerular filtration rate (eGFR) will no [...] potential consequences that do not disproportionately affect anyone group of individuals.Performed By: #### [id number] #### [facility] ([facility]) [address] [place] [address]Qaplfcp [Mass/Vol]85 mg/vOBewhsr41-429ImzvwrhjswMain Campus Medical CenterComment on above:Performed By: #### [id number] #### [facility] ([facility]) [address] [place] [address]Ambafiwnn [Moles/Vol]4.0 mmol/LNormal3.5-5.1UnMain Campus Medical CenterComment on above:Performed By: #### [id number] #### [facility] ([facility]) [address] [place], [place] [address]Amlbak [Moles/Vol]137 mmol/IHfxikq879-999RgmhufsndmMain Campus Medical CenterComment on above:Performed By: #### [id number] #### [facility] ([facility]) [address] [place], [place] [address]Bncy nitrogen [Mass/Vol]13 mg/dLNormal7-25UnMain Campus Medical CenterComment on above:Performed By: #### [id number] #### [facility] ([facility]) [address] [place], [place] [address]VRPJ NITROGEN/CREATININE (MASS RATIO) IN SER/PLAS11.3Normal [facility] - DublinComment on above:Performed By: #### [id number] #### [facility] ([facility]) [address] [place], [place] [address]SLV WITH AUTO DIFFERENTIALon 97-97-5127Rsetamsil (Bld) [#/Vol] 0.04 10*3/uLNormal0.00-0.20UnMain Campus Medical CenterComment on above: Performed By: #### [id number] #### [facility] ([facility]) [address] [facility] [place] [address]Xyjxradux/100 WBC (Bld)0.5 %Normal0.0-1.0UnMain Campus Medical CenterComment on above:Performed By: #### [id number] #### [facility] ([facility]) [address] [place] [address]Pvckzsjprjd (Bld) [#/Vol]0.34 10*3/uLNormal0.00-0.50UnMain Campus Medical CenterComment on above:Performed By: #### [id number] #### [facility] ([facility]) [address] [place] [address]Exmxwlknmse/100 WBC (Bld)4.0 %Normal0.0-6.0UnMain Campus Medical CenterComment on above:Performed By: #### [id number] #### [facility] ([facility]) [address] [place] [address]Zfeblqniuiq distribution width (RBC) [Ratio]14.6 %Normal 11.5-15.0UnMain Campus Medical CenterComment on above:Performed By: #### [id number] #### [facility] ([facility]) [address] [place], [place] [address]BYMPWTTOUQN MEAN CORPUSCULAR HEMOGLOBIN CONCENTRATION (G/DL) BY JYOQQSBHA88.6 g/nYLhtuko10.0-35.0UnMain Campus Medical CenterComment on above:Performed By: #### [id number] #### [facility] ([facility]) [address] [place], [place] [address]Iuozszcrdf (Bld) [Volume fraction]26.7 %Low39.0-50.0UnMain Campus Medical CenterComment on above:Performed By: #### [id number] #### [facility] ([facility]) [address] [place], [place] [address]Cfnitqfnae (Bld) [Mass/Vol]8.7 g/dLLow13.0-17.0UnMain Campus Medical CenterComment on above:Performed By: #### [id number] #### [facility] ([facility]) [address] [place], [place] [address]Kdtvtzyc granulocytes (Bld) [#/Vol]0.06 10*3/uLNormal0.00-0.20 [facility] - DublinComment on above:Performed By: #### [id number] #### [facility] ([facility]) [address] [place], [place] [address]Yjrovjgb granulocytes/100 WBC (Bld)0.7 %Normal0.0-1.0UnMain Campus Medical CenterComment on above:Performed By: #### [id number] #### [facility] ([facility]) [address] [place], [place] [address]Zbbunbvaxwp (Bld) [#/Vol]1.46 10*3/uLNormal1.20-4.00UnMain Campus Medical CenterComment on above:Performed By: #### [id number] #### [facility] ([facility]) [address] [place], [place] [address]Hwsiablwmai/100 WBC (Bld)17.0 %Low20.0-45.0UnMain Campus Medical CenterComment on above:Performed By: #### [id number] #### [facility] ([facility]) [address] [place], [place] [address]TNX (RBC) [Entitic mass]35.4 ipAagx83.0-33.0UnMain Campus Medical CenterComment on above:Performed By: #### [id number] #### [facility] ([facility]) [address] [place], [place] [address]TMO (RBC) [Entitic vol]108.5 eDQhux77.0-98.0UnMain Campus Medical CenterComment on above:Performed By: #### [id number] #### [facility] ([facility]) [address] [place], [place] [address]Nxgqwbikn (Bld) [#/Vol]0.71 10*3/uLNormal0.10-1.00UnMain Campus Medical CenterComment on above:Performed By: #### [id number] #### [facility] ([facility]) [address] [place] [address]Fxlvyqcqs/100 WBC (Bld)8.3 %Normal5.0-12.0UnMain Campus Medical CenterComment on above:Performed By: #### [id number] #### [facility] ([facility]) [address] [place] [address]Bxytyszkgdi (Bld) [#/Vol]5.98 10*3/uLNormal1.60-7.60UnMain Campus Medical CenterComment on above:Performed By: #### [id number] #### [facility] ([facility]) [address] [place] [address]Yrnbtwnfrjh/100 WBC (Bld)69.5 %Kotmzv33.0-72.0UnMain Campus Medical CenterComment on above:Performed By: #### [id number] #### [facility] ([facility]) [address] [place] [address]HUTL (PER 100 WBCS) BY AUTOMATED COUNT0.0 %Rjnjbi4SpdmjirxxdMain Campus Medical CenterComment on above:Performed By: #### [id number] #### [facility] ([facility]) [address] [place] [address]HXMPUWKXH (10*3/UL) IN BLOOD AUTOMATED [id number] 10*3/uLLow 150-400UnMain Campus Medical CenterComment on above:Performed By: #### [id number] #### [facility] ([facility]) [address] [place] [address]IJP (Bld) [#/Vol]2.46 10*6/uLLow4.20-5.70UnMain Campus Medical CenterComment on above:Performed By: #### [id number] #### [facility] ([facility]) [address] [place] [address]LYT (Bld) [#/Vol]8.59 10*3/uLNormal4.00-10.60Unaudie l. murphy memorial [facility] [place] Medical CenterComment on above:Performed By: #### [id number] #### [facility] ([facility]) [address] [place], [place] [address]WSVTWVSYxn [id number] Name: Brian Mandel : 1950 Primary Care Physician: Provided None, Admission Date: 11/09/2024 RAPID RESPONSE TEAM ICU TRANSFER FOLLOW-UP NOTE SUBJECTIVE / OBJECTIVE: Follow-up for previous transfer out of the ICU notification for 11/11 at 1716. ASSESSMENT / INTERVENTIONS: Recent Vital Signs: Vitals: 11/12/24 0000 11/12/24 0400 11/12/24 0439 11/12/24 0800 BP: 102/63 105/56 116/66 BP Location: Left arm Left arm Left arm Patient Position: Lying Lying Lying Pulse: 69 68 68 Resp: 23 25 20 Temp: 36.8 ???C (98.3 ???F) 36.3 ???C (97.3 ???F) TempSrc: Oral Temporal SpO2: 98% 100% 97% Weight: 81.4 kg (179 lb 7.3 oz) Height: Latest Labs: Lab Results Component Value Date WBC 8.59 11/12/2024 WBC 10.75 (H) 11/11/2024 HGB 8.7 (L) 11/12/2024 HGB 8.6 (L) 11/11/2024 HCT 26.7 (L) 11/12/2024 HCT 26.3 (L) 11/11/2024 MCV 108.5 (H) 11/12/2024 MCV 109.6 (H) 11/11/2024 PLT 143 (L) 11/12/2024 PLT 152 11/11/2024 NEUTROABS 5.98 11/12/2024 NEUTROABS 8.60 (H) 11/11/2024 Lab Results Component Value Date GLUCOSE 85 11/12/2024 GLUCOSE 104 (H) 11/11/2024 CALCIUM 8.7 11/12/2024 CALCIUM 8.4 (L) 11/11/2024 NA 137 11/12/2024 NA 135 (L) 11/11/2024 K 4.0 11/12/2024 K 3.9 11/11/2024 CO2 24 11/12/2024 CO2 24 11/11/2024 CL 106 11/12/2024 CL 106 11/11/2024 BUN 13 11/12/2024 BUN 13 11/11/2024 CREATININE 1.15 11/12/2024 CREATININE 1.15 11/11/2024 EGFR 66.0 11/12/2024 EGFR 66.0 11/11/2024 BCR 11.3 11/12/2024 BCR 11.3 11/11/2024 Lab Results Component Value Date MG 1.7 (L) 11/11/2024 MG 1.2 (L) 05/18/2024 Lab Results Component Value Date PHOS 3.0 11/11/2024 Lab Results Component Value Date ALT 16 11/11/2024 AST 22 11/11/2024 ALKPHOS 133 (H) 11/11/2024 BILITOT 0.5 11/11/2024 Lab Results Component Value Date INR 1.22 (H) 11/10/2024 INR 0.99 10/07/2024 Follow-up: Patient down in echo at the time of follow up. Vitals and lab work have remained stable since transfer out of ICU. Primary RN states he is making in appropriate comments to staff but otherwise there are no concerns from his standpoint. If emergent concerns arise for him, please call rapid response. Naida Man RN Rapid Response Team Nurse [phone] 11/12/2024 11:34 AMNormalUnMain Campus Medical CenterPOCT GLUCOSE METER UNSOLICITED RESULTSon 51-46-2424Kafbmmt [Mass/Vol]107 mg/uUUece73-681GrswdxbwovMain Campus Medical CenterComment on above:Order Comment: Waived Testing in the ED is performed under the ED CLIA certificate #[id number].Result Comment: [email or web address] Performed By: #### [id number] #### [facility] ([facility]) [address] [place], [place] [address]Xhlowpx [Mass/Vol]103 mg/iNVtwywf87-165AcicsiiyhwMain Campus Medical CenterComment on above:Order Comment: Waived Testing in the ED is performed under the ED CLIA certificate #[id number].Result Comment: [email or web address] Performed By: #### [id number] #### [facility] ([facility]) [address] [place] [id number] 48-71-891456Tfk patient is Moderately Stable - Low risk of patient condition declining or worsening The patient's goals for the shift include comfort The clinical goals for the shift include VSSNormalUniversity of St. Luke'S Health [facility] The Woodlands HospitalCBC WITH AUTO DIFFERENTIALon 47-05-8363Npoblkdne (Bld) [#/Vol]0.04 10*3/uL Normal0.00-0.20UnMain Campus Medical CenterComment on above:Performed By: #### [id number] ####[facility] ([facility] [place] [address] Basophils/100 WBC (Bld)0.4 %Normal0.0-1.0UnMain Campus Medical Center Comment on above:Performed By: #### [id number] ####[facility] ([facility])[address] [facility], [place] [address]Qplqyputahy (Bld) [#/Vol]0.10 10*3/uLNormal 0.00-0.50UnMain Campus Medical CenterComment on above:Performed By: #### [id number] ####[facility] ([facility])[address] [place] [address] Eosinophils/100 WBC (Bld)0.9 %Normal0.0-6.0UnMain Campus Medical Center Comment on above:Performed By: #### [id number] ####[facility] ([facility])[address] [facility], [place] [address]Gapxpwqmpbx distribution width (RBC) [Ratio]14.8 % Myyoqs14.5-15.0UnMain Campus Medical CenterComment on above:Performed By: #### [id number] ####[facility] ([facility])[address] [place] [address] ERYTHROCYTE MEAN CORPUSCULAR HEMOGLOBIN CONCENTRATION (G/DL) BY VTRYTTABI86.7 g/oLYdhvtc15.0-35.0UnMain Campus Medical CenterComment on above:Performed By: #### [id number] ####[facility] ([facility])[address] [place] [address]Khqxlxigxx (Bld) [Volume fraction]26.3 %Low39.0-50.0UnMain Campus Medical CenterComment on above:Performed By: #### [id number] ####[facility] ([facility])[address] [place], [place] [address]Ejnmmzohxc (Bld) [Mass/Vol]8.6 g/dLLow 13.0-17.0UnMain Campus Medical CenterComment on above:Performed By: #### [id number] ####[facility] ([facility])[address] [place], [place] [address]Kedwrcmw granulocytes (Bld) [#/Vol]0.05 10*3/uLNormal0.00-0.20UnMain Campus Medical CenterComment on above:Performed By: #### [id number] ####[facility] (BEAKER)[address] [place], [place] [address]Vzgucgee granulocytes/100 WBC (Bld)0.5 %Normal0.0-1.0UnMain Campus Medical CenterComment on above:Performed By: #### [id number] ####[facility] (AKER)[address] [place] [address] Lymphocytes (Bld) [#/Vol]1.22 10*3/uLNormal1.20-4.00UnMain Campus Medical CenterComment on above:Performed By: #### [id number] ####[facility] (BEAKER)[address] [place], [place] [address]Ofxzfahfjaf/100 WBC (Bld)11.3 %Low 20.0-45.0UnMain Campus Medical CenterComment on above:Performed By: #### [id number] ####[facility] ([facility]ER)[address] [place], [place] [address]LNP (RBC) [Entitic mass]35.8 xoFpwi44.0-33.0UnMain [facility] Center Comment on above:Performed By: #### [id number] ####[facility] ([facility])[address] [place] [address]BDR (RBC) [Entitic vol]109.6 sGRtvj55.0-98.0 [facility] - DublinComment on above:Performed By: #### [id number] ####[facility] ([facility])[address] [place] [address]Tiflvsjib (Bld) [#/Vol]0.74 10*3/uLNormal0.10-1.00UnMain Campus Medical CenterComment on above:Performed By: #### [id number] ####[facility] ([facility])[address] [place] [address]Moigjcrvf/100 WBC (Bld)6.9 %Normal5.0-12.0UnMain Campus Medical CenterComment on above:Performed By: #### [id number] ####[facility] ([facility])[address] [place] [address]Ohwvtyyfaey (Bld) [#/Vol] 8.60 10*3/uLHigh1.60-7.60UnMain Campus Medical CenterComment on above: Performed By: #### [id number] ####[facility] ([facility])[address] [place] [address]Brmggayubuw/100 WBC (Bld)80.0 %High40.0-72.0UnMain Campus Medical CenterComment on above:Performed By: #### [id number] ####[facility] ([facility])[address] [place] [address]ZFQT (PER 100 WBCS) BY AUTOMATED COUNT0.0 %Ensria1UpoywwsozuMain Campus Medical CenterComment on above: Performed By: #### [id number] ####[facility] ([facility] [place] [address]UFSBMQYFX (10*3/UL) IN BLOOD AUTOMATED STJDV197 10*3/uLNormal 150-400UnMain Campus Medical CenterComment on above:Performed By: #### [id number] ####[facility] ([facility])[address] [place] [address]MDE (Bld) [#/Vol]2.40 10*6/uLLow4.20-5.70UnMain Campus Medical CenterComment on above:Performed By: #### [id number] ####[facility] ([facility])[address] [place], [place] [address]HZB (Bld) [#/Vol]10.75 10*3/uLHigh4.00-10.60UnMain Campus Medical CenterComment on above:Performed By: #### [id number] ####[facility] ([facility])[address] [place], [place] [address]LORIFSDRXUVHG METABOLIC PANELon 05-72-9265Cnqpbsp [Mass/Vol]2.9 g/dLLow3.5-5.7UnMain Campus Medical CenterComment on above:Performed By: #### [id number] ####[facility] ([facility])[address] [place], [place] [address]RXO [Catalytic activity/Vol]133 U/L Ltrn89-326MtweicerrlMain Campus Medical CenterComment on above:Performed By: #### [id number] ####[facility] ([facility])[address] [place], [place] [address]HJM [Catalytic activity/Vol]16 U/LNormal7-52UnMain [facility] Center Comment on above:Performed By: #### [id number] ####[facility] ([facility])[address] [place], [place] [address]Urzfw gap [Moles/Vol]9 mmol/LNormal7-20UnMain Campus Medical CenterComment on above:Performed By: #### [id number] ####[facility] ([facility])[address] [place], [place] [address]KUH [Catalytic activity/Vol]22 U/IRxsqny33-39LxposwperxMain Campus Medical CenterComment on above:Performed By: #### [id number] ####[facility] ([facility])[address] [place], [place] [address]Nkeblbkui [Mass/Vol]0.5 mg/dLNormal0.3-1.0UnMain Campus Medical CenterComment on above:Performed By: #### [id number] ####[facility] ([facility])[address] [place], [place] [address]Cfqsshc [Mass/Vol]8.4 mg/dLLow 8.6-10.3UnMain Campus Medical CenterComment on above:Performed By: #### [id number] ####[facility] ([facility])[address] [place], [place] [address]Cbhxccew [Moles/Vol]106 mmol/NLcolgp82-195DpdsnrrjflMain Campus Medical CenterComment on above:Performed By: #### [id number] ####[facility] ([facility])[address] [place], [place] [address]LS8 [Moles/Vol]24 mmol/LDbwrdz64-81YvsrxlkiefMain Campus Medical CenterComment on above:Performed By: #### [id number] ####[facility] ([facility])[address] [place], [place] [address]Qprvlcbyxe [Mass/Vol]1.15 mg/dLNormal 0.70-1.30UnMain Campus Medical CenterComment on above:Performed By: #### [id number] ####[facility] ([facility])[address] [place], [place] [address]WPEZOOSSKM FILTRATION RATE ML/MIN/1.73 SQ M.LGDKDVIYA95.0 mL/min/1.73m*2Normal>60.0 [facility] - DublinComment on above:Result Comment: The [facility]???s estimated glomerular filtration rate (eG FR) will no longer include consideration of race [...] potential consequences that do not disproportionately affect anyone group of individuals. Performed By: #### [id number] ####[facility] ([facility])[address] [place], [place] [address]Gvolsrh [Mass/Vol]104 mg/wIXkef08-762YmuoymbcerMain Campus Medical CenterComment on above:Performed By: #### [id number] ####[facility] ([facility])[address] [place], [place] [address]Qwhjvcbvy [Moles/Vol]3.9 mmol/LNormal 3.5-5.1UnMain Campus Medical CenterComment on above:Performed By: #### [id number] ####[facility] ([facility])[address] [place], [place] [address]Xotepwj [Mass/Vol]6.2 g/dLNormal6.0-8.3UnMain Campus Medical CenterComment on above:Performed By: #### [id number] ####[facility] ([facility])[address] [place], [place] [address]Fzsywk [Moles/Vol]135 mmol/RTib647-578RlggueyfmmMain Campus Medical CenterComment on above:Performed By: #### [id number] ####[facility] ([facility])[address] [place], [place] [address]Dzfe nitrogen [Mass/Vol]13 mg/dLNormal 7-25UnMain Campus Medical CenterComment on above:Performed By: #### [id number] ####[facility] ([facility])[address] [place], [place] [address]VXUI NITROGEN/CREATININE (MASS RATIO) IN SER/PLAS11.3NormalUniversWilson [address] HospitalComment on above:Performed By: #### [id number] ####[facility] ([facility])[address] [place], [place] [address]ZSGQMFAus 37-73-4320LOBIWYFCitiugqaem Diseases - Initial Consult Note - Patient name: Brian Mandel Patient Today's Date and Time: 11/11/2024, 4:06 PM Admission Date: 11/09/2024 Impression: Hypotension and fever 24 hours after urologic procedure. Preop cultures were negative. He received Zosyn and vancomycin periOp. This is a high risk patient as he has a TAVR and a history of MRSA bacteremia with no clear source in July 2023 Recommendations: I agree with cefepime. I do not think he has an indication for MRSA coverage at this point. We added on a urine culture of the urinalysis from yesterday I would advise against doing a THIERRY unless we prove bacteremia, which is not the case yet Subjective Reason for consultation / Chief complaint: POD 1 fever Referring Provider: Dr. Murray History of Present Illness Brian Mandel is a 74 y.o.-year-old male who was initially admitted on 11/09/2024. This is a 74-year-old man history of obesity BMI 34 type 2 diabetes hypertension, AAA, history of coronary disease status post CABG, status post TAVR 11/2023, history of MRSA bacteremia in July 2023, history of staghorn calculi in February of this year treated at [facility]. Seen by Dr. Abernathy (urology) in June for another left kidney stone. Followed up 10/31 and there was a plan for laser lithotripsy Admitted 11/09 for the procedure. Underwent cystoscopy urethral dilatation and removal of left stent. Preop urine cultures in early October were negative. Yesterday night he developed a fever 103.6 and the blood pressure was borderline low so he was transferred to the ICU. The patient has received vancomycin and Zosyn around the time of the cystoscopy and he was started on cefepime last night after being transferred to the ICU. Blood cultures were drawn and they are negative to date A urinalysis was obtained but not reflexed to culture. I asked the nurse to add it on. Patient is very frustrated he states he wants to have the kidney stone out. He is currently borderline hypotensive but mentation is normal no more fever since yesterday Past Medical History: Medical History[1] Past Surgical History: Surgical History[2] Medications: Scheduled: [Held by provider] aspirin, 81 mg, oral, q AM cefepime, 1 g, intravenous, q8h FLUoxetine, 20 mg, oral, Daily insulin lispro, 0-15 Units, subcutaneous, q6h LYNN [Held by provider] lisinopril, 2.5 mg, oral, Daily melatonin, 6 mg, oral, Nightly [Held by provider] metoprolol tartrate, 12.5 mg, oral, BID pantoprazole, 20 mg, oral, Daily PARoxetine, 10 mg, oral, Daily sennosides, 1 tablet, oral, Nightly simvastatin, 40 mg, oral, Nightly [Held by provider] tamsulosin, 0.4 mg, oral, Daily Infusions: Social History: Social History Socioeconomic History Marital status: Spouse name: None Number of children: None Years of education: None Highest education level: None Occupational History None Tobacco Use Smoking status: Never Passive exposure: Never Smokeless tobacco: Never Substance and Sexual Activity Alcohol use: Never Drug use: Never Sexual activity: Never Other Topics Concern None Social History Narrative None Social Drivers of Health Financial Resource Strain: Low Risk (11/09/2024) Overall Financial Resource Strain (CARDIA) Difficulty of Paying Living Expenses: Not very hard Food Insecurity: No Food Insecurity (11/09/2024) Hunger Vital Sign Worried About Running Out of Food in the Last Year: Never true Ran Out of Food in the Last Year: Not on file Transportation Needs: No Transportation Needs (11/09/2024) Transportation Lack of Transportation (Medical): No Lack of Transportation (Non-Medical): Not on file Physical Activity: Inactive (05/06/2024) Received from [employer] Exercise Vital Sign Days of Exercise per Week: 0 days Minutes of Exercise per Session: 0 min Stress: Stress Concern Present (05/06/2024) Received from [employer] [place] [employer] - Occupational Stress Questionnaire Feeling of Stress : Very much Social Connections: Moderately Isolated (05/06/2024) Received from [employer] Social Connection and Isolation Panel [NHANES] Frequency of Communication with Friends and Family: More than three times a week Frequency of Social Gatherings with Friends and Family: Never Attends Confucianist Services: More than 4 times per year Active Member of Clubs or Organizations: No Attends Club or Organization Meetings: Never Marital Status: Intimate Partner Violence: Unknown (11/09/2024) Humiliation, Afraid, Rape, and Kick questionnaire Fear of Current or Ex-Partner: No Emotionally Abused: Not on file Physically Abused: Not on file Sexually Abused: Not on file Housing Stability: Low Risk (11/09/2024) Housing Stability Vital Sign Unable to Pay for Housing in the Last Year: No Number of Times Moved in the Last Year: No (more content not included)...Normal [facility] DublinMAGNESIUMon [id number] [Mass/Vol]1.7 mg/dLLow1.9-2.7[facility] - DublinComment on above:Performed By: #### [id number] ####[facility] (BEAKER)[address] [place] [address] NURSNOTEon [id number] Name: Brian Mandel : 1950 Primary Care Physician: Ebony Mar, Admission Date: 11/09/2024 RAPID RESPONSE TEAM ICU TRANSFER FOLLOW-UP NOTE SUBJECTIVE / OBJECTIVE: Follow-up for previous transfer out of the ICU notification for 11/11 at 1716. ASSESSMENT / INTERVENTIONS: Recent Vital Signs: Vitals: 11/11/24 1645 11/11/24 1700 11/11/24 1800 11/11/242005 BP: 135/68 108/55 116/69 BP Location: Left arm Patient Position: Lying Pulse: 87 67 68 62 Resp: 22 26 25 22 Temp: 36.2 ???C (97.2 ???F) 36.1 ???C (97 ???F) 36.9 ???C (98.4 ???F) 36.9 ???C (98.5 ???F) TempSrc: Oral SpO2: 95% 93% 97% 99% Weight: Height: Latest Labs: Lab Results Component Value Date WBC 10.75 (H) 11/11/2024 WBC 10.26 11/10/2024 HGB 8.6 (L) 11/11/2024 HGB 9.3 (L) 11/10/2024 HCT 26.3 (L) 11/11/2024 HCT 28.2 (L) 11/10/2024 MCV 109.6 (H) 11/11/2024 MCV 106.8 (H) 11/10/2024 PLT 152 11/11/2024 PLT 159 11/10/2024 NEUTROABS 8.60 (H) 11/11/2024 NEUTROABS 5.87 10/07/2024 Lab Results Component Value Date GLUCOSE 104 (H) 11/11/2024 GLUCOSE 98 11/10/2024 CALCIUM 8.4 (L) 11/11/2024 CALCIUM 8.4 (L) 11/10/2024 NA 135 (L) 11/11/2024 NA 134 (L) 11/10/2024 K 3.9 11/11/2024 K 4.1 11/10/2024 CO2 24 11/11/2024 CO2 24 11/10/2024 CL 106 11/11/2024 CL 106 11/10/2024 BUN 13 11/11/2024 BUN 13 11/10/2024 CREATININE 1.15 11/11/2024 CREATININE 1.12 11/10/2024 EGFR 66.0 11/11/2024 EGFR 68.1 11/10/2024 BCR 11.3 11/11/2024 BCR 11.6 11/10/2024 Lab Results Component Value Date MG 1.7 (L) 11/11/2024 MG 1.2 (L) 05/18/2024 Lab Results Component Value Date PHOS 3.0 11/11/2024 Lab Results Component Value Date ALT 16 11/11/2024 AST 22 11/11/2024 ALKPHOS 133 (H) 11/11/2024 BILITOT 0.5 11/11/2024 Lab Results Component Value Date INR 1.22 (H) 11/10/2024 INR 0.99 10/07/2024 Follow-up: Patient seen resting in bed. Primary RN consulted for follow up. The patient's labs and vitals are stable at this time. This morning the patient's serum mag was 1.7 and was replaced. The primary RN voiced no concerns at this time. The investigative writer urged the primary RN to call the rapid team if any concerns arise overnight. Donato Greenwood RN Rapid Response Team Nurse [phone] 11/11/2024 10:44 PMNormalUnMain Campus Medical CenterPHOSPHORUSon 51-20-4674Rwxmautne [Mass/Vol]3.0 mg/dLNormal2.5-5.0[facility] - DublinComment on above:Performed By: #### [id number] #### [facility] ([facility]) [address] [place], [place] [address]JKME GLUCOSE METER UNSOLICITED RESULTSon 53-62-3813Zqykavn [Mass/Vol]96 mg/fEVtxmpz41-068QexkpgronmMain Campus Medical CenterComment on above:Order Comment: Waived Testing in the ED is performed under the ED CLIA certificate #[id number].Result Comment: [id number] By: #### [id number] #### [facility] ([facility]) [address] [place], [place] [address]Fwcazgg [Mass/Vol]156 mg/wDXtgm41-427LsdgxeuirwMain Campus Medical CenterComment on above:Order Comment: Waived Testing in the ED is performed under the ED CLIA certificate #[id number].Result Comment: [email or web address] Performed By: #### [id number] #### [facility] ([facility]) [address] [place], [place] [address]Vmjboye [Mass/Vol]133 mg/kNPbte84-380FopclraswbMain Campus Medical CenterComment on above:Order Comment: Waived Testing in the ED is performed under the ED CLIA certificate #[id number].Result Comment: [email or web address] Performed By: #### [id number] #### [facility] ([facility]) [address] [place], [place] [address]Zsgrzhr [Mass/Vol]120 mg/gLMcll81-626VrkabrmnflMain Campus Medical CenterComment on above:Order Comment: Waived Testing in the ED is performed under the ED CLIA certificate #[id number].Result Comment: [email or web address] Performed By: #### [id number] ####[facility] ([facility])[address] [place], [place] [address]GBCITSEPGM WITH MICROSCOPICon 07-46-5606KWRPKZIJN, TOTAL PRESENCE IN URINENegativeNormalNegativeUnMain Campus Medical Center Comment on above:Performed By: #### [id number] ####[facility] ([facility])[address] [place], [place] [address]Ulowckg (U)TurbidAbnormalClearUnMain Campus Medical CenterComment on above:Performed By: #### [id number] ####[facility] ([facility])[address] [place], [place] [address]Anasi (U)Dark-YellowAbnormalColorless, Yellow, Light-YellowSelect Medical OhioHealth Rehabilitation Hospital - DublinComment on above: Performed By: #### [id number] ####[facility] ([facility])[address] [place], [place] [address]GGFJIJE (MG/DL) IN URINENormalNormalNormalUniversWilson Street HospitalComment on above:Performed By: #### [id number] ####[facility] ([facility])[address] [place], [place] [address]JENOBJMQFR PRESENCE IN URINELargeAbnormalNegCincinnati VA Medical CenterComment on above: Performed By: #### [id number] ####[facility] ([facility])[address] [place], [place] [address]Nmefztw Ql (U)NegativeNormalNegativeSelect Medical OhioHealth Rehabilitation Hospital - DublinComment on above:Performed By: #### [id number] ####[facility] ([facility])[address] [place], [place] [address]ENMELMWRB ESTERASE PRESENCE IN URINE BY TEST STRIPLargeAbnocarolinas continuecare hospital at pinevilleNegCincinnati VA Medical CenterComment on above:Performed By: #### [id number] ####[facility] ([facility])[address] [place], [place] [address]SJRAJ (#/LPF) IN URINE SEDIMENTOccasionalNormalNone Seen, Occasional, FewUnMain Campus Medical CenterComment on above:Performed By: #### [id number] ####[facility] ([facility])[address] [place] [address] NITRITE PRESENCE IN URINENegativeNormalNegCincinnati VA Medical CenterComment on above:Performed By: #### [id number] ####[facility] ([facility])[address] [place], [place] [address]lL (U)6.5 [pH]Normal5.0-8.0UnMain Campus Medical CenterComment on above:Performed By: #### [id number] ####[facility] ([facility])[address] [place] [address]Udmapqu (U) [Mass/Vol]30 mg/dLAbnormalNegativeUnMain Campus Medical CenterComment on above: Performed By: #### [id number] ####[facility] ([facility])[address] [place], [place] [address]IXN (#/HPF) IN URINE SEDIMENT>20AbnormalNone Seen, 0-2 [facility] - DublinComment on above:Performed By: #### [id number] ####[facility] ([facility])[address] [place], [place] [address]Pmpbxwbx gravity (U) [Rel density]1.947Gmopay4.010-1.030UnMain Campus Medical Center Comment on above:Performed By: #### [id number] ####[facility] ([facility])[address] [place], [place] [address]ECUMWAZH EPITHELIAL CELLS (#/LPF) IN URINE SEDIMENT None SeenNormalNone Seen, Occasional, FewUnMain Campus Medical Center Comment on above:Performed By: #### [id number] ####[facility] ([facility])[address] [place], [place] [address]LMXGSZYFLXJN (MG/DL) IN URINENormalNormalNormal [facility] - DublinComment on above:Performed By: #### [id number] ####[facility] ([facility])[address] [place], [place] [address]OGD (LEUKOCYTE) (#/HPF) IN URINE SEDIMENT>50AbnormalNone Seen, 0-2UnMain Campus Medical CenterComment on above:Performed By: #### [id number] ####[facility] ([facility])[address] [place], [place] [address]WZATP CULTURE, ROUTINEon 11-11-2024 Bacteria identified Cx Nom (U)<10,000 CFU/ML No Significant GrowthNormal [facility] - DublinComment on above:Performed By: #### [id number] #### [facility] ([place]) [address] [place], [place] [address]10yl [id number] patient is Moderately Stable - Low risk of patient condition declining or worsening The patient's goals for the shift include comfort, rest, and decreased bleeding from call catheter The clinical goals for the shift include VSS,comfort , sleep, adequate urine output , decreased bleeding from call catheter Over the shift, the patient did not make progress toward the following goals. Barriers to progression include Problem: Pain - Adult Goal: Verbalizes/displays adequate comfort level or baseline comfort level Outcome: Not Progressing Problem: Discharge Planning Goal: Discharge to home or other facility with appropriate resources Outcome: Not Progressing Problem: Skin Integrity Goal: STG-Pt/family demonstrates understanding of care plan and preventions of further injury 11/10/2024825 by Nunu Garza RN Outcome: Not Progressing 11/10/2024819 by Nunu Garza RN Outcome: Not Progressing Problem: Heart Failure diagnosis knowledge deficit Goal: Patient will verbalize understanding of how other conditions affect the heart Outcome: Not Progressing . Recommendations to address these barriers include PT'S ALERTED MENTAL STATUS. Pt's not being able to swallow well and decreased intake of po food and fluids secondary to swallowing difficulty Problem: Pain - Adult Goal: Verbalizes/displays adequate comfort level or baseline comfort level Outcome: Not Progressing Problem: Discharge Planning Goal: Discharge to home or other facility with appropriate resources Outcome: Not Progressing Problem: Skin Integrity Goal: STG-Pt/family demonstrates understanding of care plan and preventions of further injury 11/10/2024825 by Nunu Garza RN Outcome: Not Progressing 11/10/2024819 by Nunu Garza RN Outcome: Not Progressing Problem: Heart Failure diagnosis knowledge deficit Goal: Patient will verbalize understanding of how other conditions affect the heart Outcome: Not ProgressingNormalUniversWilson Street HospitalBASIC METABOLIC PANELon 55-82-4035Gjpcv gap [Moles/Vol]8 mmol/LNormal7-[facility] [place] [facility] CenterComment on above:Performed By: #### [id number] #### [facility] ([facility]) [address] [place], [place] [address]Obwpxie [Mass/Vol]8.4 mg/dLLow8.6-10.3UnMain Campus Medical CenterComment on above:Performed By: #### [id number] #### [facility] ([facility]) [address] [place], [place] [address]Rpylfuie [Moles/Vol]106 mmol/UJyprjg41-635GplezcjibdMain Campus Medical CenterComment on above:Performed By: #### [id number] #### [facility] ([facility] [facility]) [address] [place], [place] [address]KI9 [Moles/Vol]24 mmol/RWpdhzn96-09SbuulmulnnMain Campus Medical CenterComment on above:Performed By: #### [id number] #### [facility] ([facility]) [address] [place], [place] [address]Egjvfvwrfa [Mass/Vol]1.12 mg/dLNormal0.70-1.30UnMain Campus Medical CenterComment on above:Performed By: #### [id number] #### [facility] ([facility]) [address] [place], [place] [address]ZOVJTZBMCA FILTRATION RATE ML/MIN/1.73 SQ M.WCOJPJQVQ40.1 mL/min/1.73m*2Normal>60.0UnMain Campus Medical CenterComment on above: Result Comment: The [facility]???s estimated glomerular filtration rate (eGFR) will no [...] potential consequences that do not disproportionately affect anyone group of individuals.Performed By: #### [id number] #### [facility] ([facility]) [address] [place] [place], [place] [address]Ifctjzj [Mass/Vol]98 mg/zCYpcnmo79-997CrhjmcbcraMain Campus Medical CenterComment on above:Performed By: #### [id number] #### [facility] ([facility]) [address] [place] [address]Loympfgef [Moles/Vol]4.1 mmol/LNormal3.5-5.1UnMain Campus Medical CenterComment on above:Performed By: #### [id number] #### [facility] ([facility]) [address] [place] [address]Fjuwnb [Moles/Vol]134 mmol/XPdj335-192KofdbcdbwqMain Campus Medical CenterComment on above:Performed By: #### [id number] #### [facility] ([facility]) [address] [place] [place] [address]Mawx nitrogen [Mass/Vol]13 mg/dLNormal7-25UnMain Campus Medical CenterComment on above:Performed By: #### [id number] #### [facility] ([facility]) [address] [place], [place] [address]GLPD NITROGEN/CREATININE (MASS RATIO) IN SER/PLAS11.6Normal [facility] DublinComment on above:Performed By: #### [id number] #### [facility] ([facility]) [address] [place] [address]LZFSC CULTUREon 05-21-4441Aprglqkz identified Cx Nom (Bld)No growth at [address] HospitalComment on above: Performed By: #### [id number] #### [facility] ([facility]) [address] [place] [address]EVSyy 10-82-4338Scmjprecsce distribution width (RBC) [Ratio]14.7 %Xtqzjs82.5-15.0UnMain Campus Medical CenterComment on above:Performed By: #### [id number] ####[facility] ([facility])[address] [place] [address] ERYTHROCYTE MEAN CORPUSCULAR HEMOGLOBIN CONCENTRATION (G/DL) BY KLODQYARE55.0 g/eLIbpwre86.0-35.0UnMain Campus Medical CenterComment on above:Performed By: #### [id number] ####[facility] ([facility])[address] [place] [address]Yzcvqihtir (Bld) [Volume fraction]28.2 %Low39.0-50.0UnMain Campus Medical CenterComment on above:Performed By: #### [id number] ####[facility] ([facility])[address] [place] [address]Puorouwkyy (Bld) [Mass/Vol]9.3 g/dLLow 13.0-17.0UnMain Campus Medical CenterComment on above:Performed By: #### [id number] ####[facility] ([facility])[address] [place] [address]EOM (RBC) [Entitic mass]35.2 fbXuqr78.0-33.0UnMain Campus Medical CenterComment on above:Performed By: #### [id number] ####[facility] ([facility])[address] [place] [address]DGB (RBC) [Entitic vol]106.8 hVSkth39.0-98.0UnMain Campus Medical CenterComment on above:Performed By: #### [id number] ####[facility] ([facility])[address] [place] [address]MKBZBZZVJ (10*3/UL) IN BLOOD AUTOMATED VWPWG001 10*3/bRTnrqff805-831CslerdxsmoMain Campus Medical Center Comment on above:Performed By: #### [id number] ####[facility] ([facility])[address] [place] [address]ZBA (Bld) [#/Vol]2.64 10*6/uLLow4.20-5.70UnMain Campus Medical CenterComment on above:Performed By: #### [id number] ####[facility] ([facility] [place] [address]RRR (Bld) [#/Vol]10.26 10*3/uLNormal4.00-10.60[facility] DublinComment on above: Performed By: #### [id number] ####[facility] ([facility])[address] [place], [place] [address]GA ABDOMEN PELVIS WO IV CONTRASTon 84-85-8352PK ABDOMEN PELVIS WO IV CONTRASTCT ABDOMEN PELVIS WO IV CONTRAST HISTORY: Left ureteral stent, left pelvic stone COMPARISON: 10/07/2024 TECHNIQUE: CT images of the abdomen and pelvis obtained without the administration of contrast. Lack of IV contrast limits evaluation, especially solid organs. Automated exposure control was utilized. [...] periureteral stranding. The bladder is decompressed with Call catheter in place. A few foci of [...] compression deformity. Small bilateral fat-containing inguinal hernias. IMPRESSION: * Interval removal of left ureteral stent. [...] this report. Electronically signed: Braulio De Anda. Not Vldtd nullNormalUniversity of St. Luke'S Health – The Woodlands HospitalFERRITINon 99-35-1088ZALCVLKW (NG/ML) IN SER/YFAC878.0 ng/rXDmohhn62.0-336.0UnMain Campus Medical CenterComment on above:Performed By: #### [id number] #### [facility] ([facility]) [address] [place], [place] [address]AJGDXZtu 19-79-2790IIOZVX (NG/ML) IN SER/PLAS13.52 ng/mLNormal 6.6-1000UnMain Campus Medical CenterComment on above:Performed By: #### [id number] #### [facility] ([facility]) [address] [place], [place] [address]OMha 46-01-1392SH Attestation signed by Ian Murray MD at 11/11/2024 4:46 PM See progress note Adult ICU History & Physical Patient - Brian Mandel Age - 74 y.o. - 1950 [facility] # - [id number] Date of Admission - 11/09/2024 1:39 PM Chief Complaint Fever History of Present Illness Brian Mandel is a 74 y.o. male who came from home Patient with a past medical history of ACS, hypertension, CHF, COPD, type 2 diabetes, AAA, acute cystitis, history of CABG, status post TAVR, and sepsis who was recently diagnosed with a kidney stone on the left and had a left ureteral stent placed in February and he was diagnosed with urosepsis at the time due to a 1.56 cm left stone presents with chief complaint of a left kidney stone. The patient had a left ureteral stent placed at [facility] in February for acute kidney injury, urosepsis likely due to a 1.5 cm left ureteral stone. He had left flank pain. He had a repeat CT scan in September that demonstrated 9 mm left renal pelvic stone and a stent in good position. He had left ureteroscopy with holmium laser lithotripsy. Urology evaluated the Pt and did cysto urethral dilation, L stent removal. Hospitalist called ICU stating that urology recommended that if Pt spikes a fever overnight to be transferred to ICU for closer monitoring. PMH: Patient has a past medical history of Anxiety, Asthma, CHF (congestive heart failure) (CMS/HCC), Depression, Diabetes mellitus (CMS/HCC), HL (hearing loss), Hyperlipidemia, Hypertension, and Kidney stone. PSH: Patient has a past surgical history that includes Hernia repair. SH: Patient reports that he has never smoked. He has never been exposed to tobacco smoke. He has never used smokeless tobacco. He reports that he does not drink alcohol and does not use drugs. Alc/Tobacco/Drug: Patient reports no history of alcohol use. reports that he has never smoked. He has never been exposed to tobacco smoke. He has never used smokeless tobacco. reports no history of drug use. Medications: Patient Current Medications[1] Allergies: Patient Patient has no known allergies. Family history: Patient family history is not on file. Review of Systems: Review of Systems Constitutional: Positive for fatigue and fever. Negative for chills and diaphoresis. Respiratory: Negative for cough, shortness of breath and wheezing. Cardiovascular: Negative for chest pain, palpitations and leg swelling. Gastrointestinal: Positive for abdominal pain (left flank). Negative for diarrhea, nausea and vomiting. Genitourinary: Positive for flank pain (left) and hematuria. Musculoskeletal: Negative for back pain. Physical Exam Ht Readings from Last 1 Encounters: 11/09/24 1.524 m (5') Wt Readings from Last 1 Encounters: 11/10/24 78.2 kg (172 lb 6.4 oz) height is 1.524 m (5') and weight is 78.2 kg (172 lb 6.4 oz). His temporal temperature is 37 ???C (98.6 ???F). His blood pressure is 117/58 and his pulse is 83. His respiration is 33 (abnormal) and oxygen saturation is 99%. Intake/Output Summary (Last 24 hours) at 11/10/2024 2306 Last data filed at 11/10/2024 1811 Gross per 24 hour Intake 1875.83 ml Output 2700 ml Net -824.17 ml Respiratory Source: @RESPSOURCE@ Physical Exam Constitutional: General: He is not in acute distress. HENT: Head: Normocephalic and atraumatic. Eyes: General: No scleral icterus. Cardiovascular: Rate and Rhythm: Normal rate. Heart sounds: No gallop. Pulmonary: Breath sounds: No wheezing or rales. Abdominal: General: There is no distension. Palpations: Abdomen is soft. Tenderness: There is abdominal tenderness (left lower quadrant, left flank). Genitourinary: Comments: Call and with pinkish/red urine in it Musculoskeletal: Cervical back: Neck supple. Right lower leg: No edema. Left lower leg: No edema. Skin: Coloration: Skin is not jaundiced. Neurological: Mental Status: He is alert and oriented to person, place, and time. Labs/Imaging @LAB@ @UFUHJRR52@ Micro ? ASSESSMENT -Fever following cystoscopy and left stent removal due to nephrolithiasis, need to rule out urosepsis, and need to rule out other etiologies of sepsis and shock - nephrolithiasis - possible shock likely related to urosepsis -H/o urosepsis back in February - chronic HFpEF - COPD without exacerbation - GERD with esophagitis - type 2 diabetes mellitus - hypertension - anxiety disorder PLAN - will transfer patient to MICU for closer monitoring of any signs of urosepsis based on neurology recommendations - will obtain urinalysis with microscopy - will obtain blood culture as patient spiked fever - will obtain lactic acid - follow-up abdominal CT scan - patient currently hemodynamically stable, home antihypertensive (more content not included)...NormalUnMain Campus Medical CenterIRON AND TIBCon 38-30-9956RDTQ (UG/DL) IN SER/PLAS29 ug/vCRtq98-178DimqrgdwghMain Campus Medical CenterComment on above:Performed By: #### [id number] ####[facility] ([facility])[address] [place], [place] [address]QUZS BINDING CAPACITY (UG/DL) IN SER/QCZG790 ug/mKCyp917-448RnrypcnjmbMain Campus Medical CenterComment on above: Performed By: #### [id number] ####[facility] ([facility])[address] [place], [place] [address]AVAT BINDING CAPACITY.UNSATURATED (UG/DL) IN SER/VHPR013.0 ug/jNXamhdm592.0-355.0UnMain Campus Medical CenterComment on above: Performed By: #### [id number] ####[facility] ([facility])[address] [place], [place] [address]OASM SATURATION (%) IN SER/PLAS13 %Caj40-47LetawpardqMain Campus Medical CenterComment on above:Performed By: #### [id number] ####[facility] ([employer])[address] [place], [place] [address]OZAVVN ACID WITH 4 HOUR REFLEXon 58-55-5783IBXRKQS (MMOL/L) IN SER/PLAS0.8 mmol/LNormal0.5-2.2UnMain Campus Medical CenterComment on above:Performed By: #### [id number] ####[facility] ([facility])[address] [place], [place] [address]EUYERZ ACID, PLASMAon 70-33-1293YJZSTAU (MMOL/L) IN SER/PLAS1.2 mmol/LNormal0.5-2.2UnMain Campus Medical CenterComment on above:Performed By: #### [id number] #### [facility] ([facility]) [address] [place] [address]USKYJGQTtx 54-29-3717BOCUADSMVu stating to investigative writer that he is a millionaire. 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 Pt stating at end of shift that if he can't go home this am because of the bleeding from his call catheter that he will be suing the doctors. Pt seems to be having delusions. Director Of Brand Marketing attempted to go over Pt's medication list to verify his medications. Earlier in night Pt stated to investigative writer that he takes midodrine..Later he states he does not. Pt also telling me he takes nothing for his DM type 2. Pt stating [employer] just threw on new medications for him but he doesn't take them at home. Pt with 2 small scabed area. One to each wall. Pt stating his dog was at a friends house and came back loaded with fleas. Pt with numerous scars areas to his legs bilaterally. Pt with no open wounds. Pt was only oriented to himself when he first arrived on the unit. No education related to heart failure able to be done Pt stating he no longer has heart failure because he had is heart transplantNormalUniversity of St. Luke'S Health – The Woodlands HospitalPOCT GLUCOSE METER UNSOLICITED RESULTSon 51-95-0854Jhxmpys [Mass/Vol]137 mg/yXIxxo76-579NzgyqvhxbjMain Campus Medical CenterComment on above:Order Comment: Waived Testing in the ED is performed under the ED CLIA certificate #[id number].Result Comment: bgarrow Performed By: #### [id number] ####[facility] ([facility])[address] [place], [place] [address]Bptiokw [Mass/Vol]164 mg/gSIaru87-670PbpdicoltyMain Campus Medical CenterComment on above:Order Comment: Waived Testing in the ED is performed under the ED CLIA certificate #[id number].Result Comment: [email or web address] Performed By: #### [id number] ####[facility] ([facility])[address] [place], [place] [address]Iksiytq [Mass/Vol]134 mg/qLAguu25-619EbecalthybMain Campus Medical CenterComment on above:Order Comment: Waived Testing in the ED is performed under the ED CLIA certificate #[id number].Result Comment: [email or web address] Performed By: #### [id number] #### [facility] ([facility]) [address] [place], [place] [address]Chkklxq [Mass/Vol]122 mg/sMQrnn53-996CgrjmtctbeMain Campus Medical CenterComment on above:Order Comment: Waived Testing in the ED is performed under the ED CLIA certificate #[id number].Result Comment: [email or web address] Performed By: #### [id number] ####[facility] ([facility])[address] [place], [place] [address]Raoiqss [Mass/Vol]112 mg/cAZowd62-987ShgslqqkbrMain Campus Medical CenterComment on above:Order Comment: Waived Testing in the ED is performed under the ED CLIA certificate #[id number].Result Comment: [email or web address] Performed By: #### [id number] #### [facility] ([facility]) [address] [place], [place] [address]ZMLUYXZ-EBPjw 83-25-9772KQV IN PPP BY COAGULATION ASSAY1.22High 0.90-1.10UnMain Campus Medical CenterComment on above:Result Comment: [facility] RECOMMENDED INR FOR WARFARIN THERAPY CONDITION INR PROPHYLAXIS OF VENOUS THROMBOSIS 2-3 (HIGH-RISK SURGERY) TREATMENT OF VENOUS THROMBOSIS 2-3 TREATMENT OF PULMONARY EMBOLISM 2-3 PREVENTION OF SYSTEMIC EMBOLISM: 2-3 ACUTE MYOCARDIAL INFARCTION TISSUE HEART VALVES VALVULAR HEART DISEASE ATRIAL FIBRILLATION RECURRENT SYSTEMIC EMBOLISM MECHANICAL HEART VALVE 2.5-3.5 FROM: ORAL ANTICOAGULANTS. MECHANISM OF ACTION, CLINICAL EFFECTIVENESS, AND OPTIMAL THERAPEUTIC RANGE. CHEST 1995;108:231S-246S.Performed By: #### [id number] ####[facility] ([facility])[address] [place], [place] [address]VZYSQDUZTDR TIME (PT) IN PPP BY COAGULATION ASSAY15.5 SrsdpxjItbl99.3-14.8UnMain Campus Medical CenterComment on above:Performed By: #### [id number] ####[facility] ([facility])[address] [place], [place] [address]SOSRZLF B12on 22-73-6348Gndaaeacw (Vitamin B12) [Mass/Vol]365 pg/wFBefqnz189-628AcldfxjibyMain Campus Medical CenterComment on above:Result Comment: REFERENCE RANGES: 180-914 pg/mL Normal 145-179 pg/mL Indeterminate <145 pg/mL DeficientPerformed By: #### [id number] ####[facility] ([facility])[address], [place] [address]MBRLU METABOLIC PANELon 99-17-0151Qmdwt gap [Moles/Vol]14 mmol/LNormal7-20UnMain Campus Medical CenterComment on above:Performed By: #### [id number] #### [facility] ([facility]) [address] [place], [place] [address]Ewjojyf [Mass/Vol]9.0 mg/dLNormal8.6-10.3UnMain Campus Medical CenterComment on above:Performed By: #### [id number] #### [facility] ([facility]) [address] [place], [place] [address]Ulxnbocr [Moles/Vol]107 mmol/SWzkuii11-771TzqftlqaujMain Campus Medical CenterComment on above:Performed By: #### [id number] #### [facility] ([facility]) [address] [place], [place] [address]LT3 [Moles/Vol]20 mmol/QFhm18-86IstanofpjgMain Campus Medical CenterComment on above:Performed By: #### [id number] #### [facility] ([facility]) [address] [place] [address]Optpgmtrnf [Mass/Vol]1.09 mg/dLNormal0.70-1.30UnMain Campus Medical CenterComment on above:Performed By: #### [id number] #### [facility] ([facility]) [address] [place] [address]OBLFUOEDXH FILTRATION RATE ML/MIN/1.73 SQ M.QVITXLYSP61.3 mL/min/1.73m*2Normal>60.0UnMain Campus Medical CenterComment on above: Result Comment: The [facility]???s estimated glomerular filtration rate (eGFR) will no [...] potential consequences that do not disproportionately affect anyone group of individuals.Performed By: #### [id number] #### [facility] ([facility]) [address] [place] [address]Airthhr [Mass/Vol]103 mg/yGKpsa89-109CfkhxxejuyMain Campus Medical CenterComment on above:Performed By: #### [id number] #### [facility] ([facility]) [address] [place] [address]Jifycnurt [Moles/Vol]4.0 mmol/LNormal3.5-5.1UnMain Campus Medical CenterComment on above:Performed By: #### [id number] #### [facility] ([facility]) [address] [place] [address]Kkvjvf [Moles/Vol]137 mmol/LGvmgez482-769TrwszblrvqMain Campus Medical CenterComment on above:Performed By: #### LAB15 #### [facility] ([facility]) [address] [place] [address]Sxsc nitrogen [Mass/Vol]13 mg/dLNormal7-25UnMain Campus Medical CenterComment on above:Performed By: #### [id number] #### [facility] ([facility]) [address] [place] [address]QTTU NITROGEN/CREATININE (MASS RATIO) IN SER/PLAS11.9Noal [facility] DublinComment on above:Performed By: #### [id number] #### [facility] ([facility]) [address] [address]EMJYB CULTUREon 18-47-1560Oxpujllm identified Cx Nom (Bld)No growth at 5 daysNoalUniThe University of Toledo Medical CenterComment on above:Order Comment: From a different site than #1.Performed By: #### [id number] #### [facility] ([facility]) [address] [place] [address]Bpnglbyj identified Cx Nom (Bld)No growth at 5 daysNoAdena Health SystemComment on above:Performed By: #### [id number] #### [facility] ([facility]) [address] [place] [address]FCJqg 64-55-4979Tzqzetamxxz distribution width (RBC) [Ratio]15.0 %Haeolb89.5-15.0UnMain Campus Medical CenterComment on above:Performed By: #### [id number] #### [facility] ([facility]) [address] [place] [address]XXNAYJRZYYR MEAN CORPUSCULAR HEMOGLOBIN CONCENTRATION (G/DL) BY IXUUTWVIN42.5 g/dLLow32.0-35.0UnMain Campus Medical CenterComment on above:Performed By: #### [id number] #### [facility] ([facility]) [address] [place] [address]Ibjgnmdksf (Bld) [Volume fraction]32.7 %Low39.0-50.0UnMain Campus Medical CenterComment on above:Performed By: #### LAB15 #### [facility] ([facility]) [address] [place] [address]Eirplixgmi (Bld) [Mass/Vol]10.3 g/dLLow13.0-17.0UnMain Campus Medical CenterComment on above:Performed By: #### LAB15 #### [facility] ([facility]) [address] [place] [address]JAO (RBC) [Entitic mass]35.0 hvYpxl68.0-33.0UnMain Campus Medical CenterComment on above:Performed By: #### [id number] #### [facility] ([facility]) [address] [place] [address]EPZ (RBC) [Entitic vol]111.2 bOFmif18.0-98.0UnMain Campus Medical CenterComment on above:Performed By: #### [id number] #### [facility] ([facility]) [address] [place] [address]XQAALZPLN (10*3/UL) IN BLOOD AUTOMATED AECLJ867 10*3/uLNormal 150-400UnMain Campus Medical CenterComment on above:Performed By: #### [id number] #### [facility] ([facility]) [address] [place] [address]ZED (Bld) [#/Vol]2.94 10*6/uLLow4.20-5.70UnMain Campus Medical CenterComment on above:Performed By: #### [id number] #### [facility] ([facility]) [address] [place] [address]KVE (Bld) [#/Vol]11.80 10*3/uLHigh4.00-10.60UnMain Campus Medical CenterComment on above:Performed By: #### [id number] #### [facility] ([facility]) [address] [place] [address]CCjv 68-82-6763KTA&P reviewed. The patient was examined and there are no changes to the H&P. Patient reports mild back pain recently on the left. Otherwise doing well. Reports being NPO since yesterday evening and following all pre-procedural instructions. I personally saw this patient on the day of the encounter, performed the benoit portion(s) of the service, participated in the management, and confirm the resident's documentation. Please note there may be an additional personal documentation from me. Tristan Abernathy M.D.[facility] Medical CenterNURSNOTEon 11-09-2024 NURSNOTEPt arrived to pre-op bay __3__. Pt instructed to remove all clothing and place personal belongings in labeled bag. Pt informed anesthesia and physician will come to the bedside to discuss procedure prior to going back at procedural time. All questions answered at this time.[facility] OPNOTEon [id number]: 11/09/2024 Location: [facility] OR Name: Brian Mandel DOB: 1950, Diagnosis Pre-op Diagnosis * Nephrolithiasis [N20.0] Post-op Diagnosis * Nephrolithiasis [N20.0] Procedures * CYSTOSCOPY,WITH URETHRA DILATION Surgeons Primary: Tristan Abernathy MD Resident - Assisting: Jesu Ortega MD; Saul Jung DO; Dmitriy Ruiz MD Procedure Summary Anesthesia: General ASA: IV Estimated Blood Loss: Per anesthetic record Total IV Fluids: Per anesthetic record Drains: [REMOVED] Urethral Catheter Coude 18 Fr. (Removed) Site Assessment Clean;Bleeding;Skin intact 11/12/24 0649 Call Care Yes 11/12/24 0649 Collection Container Standard drainage bag 11/12/24 0649 Securement Method STAT Lock 11/12/24 0649 Reason for Continuing Urinary Catheterization /rectal surgery 11/12/24 0649 Output (mL) 250 mL 11/12/24 1000 Staff: Shipping Room Supervisor: Kun Rodrigues RN; Shakira Cook RN Relief Scrub: Robert Kitchen, DIRECTOR OF BRAND MARKETING Scrub Person: Khadra Cagle RN Indications: Brian Mandel is an 74 y.o. male who many months ago at an outside institution had a left ureteral stent placed for a 1.2 cm left renal pelvic calculus. He presents today for attempted ureteroscopy with holmium laser lithotripsy Procedure Details: The patient was taken to the operating room and was identified by both name and medical record number. A surgical huddle was performed. General anesthesia was induced. The patient was placed into the lithotomy position and was prepped and draped in the usual sterile fashion. A surgical timeout was performed. Rigid cystoscopy was performed. He had a very narrow membranous urethral stricture. A Glidewire was passed into the bladder and the stricture was dilated to 26 Chilean. The area from the membranous urethra to the bladder neck felt very rigid. We were able to then enter the bladder with difficulty. Visualization was very limited due to bleeding from the area of the stricture dilation in the patient's being on antiplatelet therapy due to cardiac concerns. The old left ureteral stent was visualized and was removed. We were unable to then identify or cannulate the left ureteral orifice. At this point a Call catheter was placed and the patient was awoken and returned to the recovery unit in satisfactory condition. Will talk to the patient about placement of a nephrostomy tube for possible PCNL. I performed the entire procedure. Tristan Abernathy MDNormalUniversity Akron Children's HospitalPOCT GLUCOSE METER UNSOLICITED RESULTSon [id number] [Mass/Vol]93 mg/sRHltcwi09-795KlqynanjynMain Campus Medical CenterComment on above:Order Comment: Waived Testing in the ED is performed under the ED CLIA certificate #[id number].Result Comment: bgarrowPerformed By: #### [id number] #### [facility] ([facility]) [address] [place], [place] [address]Vayvmir [Mass/Vol]101 mg/hHNvplko15-723MgtxtfochmMain Campus Medical CenterComment on above:Order Comment: Waived Testing in the ED is performed under the ED CLIA certificate #[id number].Result Comment: [email or web address] Performed By: #### [id number] #### [facility] ([facility]) [address] [place], [place] [address]EGWIHUDHLFko [id number], TOTAL PRESENCE IN URINEUnable to Perform Due to Color InterferenceNormalNegativeUnMain Campus Medical CenterComment on above:Performed By: #### [id number] #### [facility] ([facility]) [address] [place], [place] [address]Jeytoxw (U)TurbidAbnormalClear, OtherUnMain Campus Medical CenterComment on above:Performed By: #### [id number] #### [facility] ([facility]) [address] [place], [place] [address]Yepzt (U)RedAbnormalYellow, Light Yellow, ColorlessUnMain Campus Medical CenterComment on above:Performed By: #### [id number] #### [facility] ([facility]) [address] [place], [place] [address]QUTZIZW (MG/DL) IN URINEUnable to Perform Due to Color InterferenceNormalNormalUniversWilson Street HospitalComment on above: Performed By: #### [id number] #### [facility] ([facility]) [address] [place], [place] [address]FQIXHVLOIZ PRESENCE IN URINEUnable to Perform Due to Color InterferenceNormalNegativeUnMain Campus Medical CenterComment on above: Performed By: #### [id number] #### [facility] ([facility]) [address] [place], [place] [address]Udrzamv Ql (U)Unable to Perform Due to Color InterferenceNormal NegativeUnMain Campus Medical CenterComment on above:Performed By: #### [id number] #### [facility] ([facility]) [address] [place], [place] [address]PFLQBQFBZ ESTERASE PRESENCE IN URINE BY TEST STRIPUnable to Perform Due to Color InterferenceNormalNegativeSelect Medical OhioHealth Rehabilitation Hospital - DublinComment on above:Performed By: #### [id number] #### [facility] ([facility]) [address] [place], [place] [address]MDAOHLY PRESENCE IN URINEUnable to Perform Due to Color InterferenceNormalNegativeSelect Medical OhioHealth Rehabilitation Hospital - DublinComment on above: Performed By: #### [id number] #### [facility] ([facility]) [address] [place] [place], [place] [address]aW (U)6.5 [pH]Normal5.0-8.0UnMain Campus Medical Center Comment on above:Performed By: #### [id number] #### [facility] ([facility]) [address] [place] [address]ZLCHDRG (MG/DL) IN URINE BY TEST STRIPUnable to Perform Due to Color InterferenceNormalNegativeSelect Medical OhioHealth Rehabilitation Hospital - DublinComment on above:Performed By: #### [id number] #### [facility] ([facility]) [address] [place] [address]Luxbavwc gravity (U) [Rel density]1.169Nuyiqd0.010-1.030 [facility] - DublinComment on above:Performed By: #### [id number] #### [facility] ([facility]) [address] [place] [address]HCIOUFURENJK (MG/DL) IN URINEUnable to Perform Due to Color InterferenceNormalNormalUniThe University of Toledo Medical CenterComment on above: Performed By: #### [id number] #### [facility] ([facility]) [address] [place] [address]GSJAOAULME MICROSCOPICon [id number] (#/LPF) IN URINE SEDIMENTOccasionalNormalNone Seen, Occasional, FewUnMain Campus Medical CenterComment on above:Performed By: #### [id number] ####[facility] ([facility])[address] [place] [address]WDH (#/HPF) IN URINE SEDIMENT>20 AbnormalNone Seen, 0-2UnMain Campus Medical CenterComment on above: Performed By: #### [id number] ####[facility] ([facility])[address] [place] [address]EEEUVLYA EPITHELIAL CELLS (#/LPF) IN URINE SEDIMENTOccasional NormalNone Seen, Occasional, FewUnMain Campus Medical CenterComment on above:Performed By: #### [id number] ####[facility] ([facility])[address] [place] [address]HDB (LEUKOCYTE) (#/HPF) IN URINE SEDIMENT6-10AbnormalNone Seen, 0-2UnMain Campus Medical CenterComment on above:Performed By: #### [id number] ####[facility] (BEAKER)[address] [place], [place] [address]69rx [id number] patient and advised per Dr. Abernathy Augmentin was sent to the pharmacy and to start taking today. Patient verbalized understanding.NormalUnMain Campus Medical CenterFollow-Upon [id number] Brian Mandel 1950 M Date Provider Department Center 10/31/2024 3844-TRISTAN ABERNATHY [facility] U[facility] Second Fl No family history on file Level of Service:[address]55 [place] OFFICE/OUTPATIENT ESTABLISHED LOW MDM 20 MIN Reason for Visit and Comments: Nephrolithiasis [767186] - Er follow Ct resultsNormalUniThe University of Toledo Medical CenterHPon [id number] complaint/HPI/Plan: The patient is a 74-year-old male who presents with a chief complaint of a left kidney stone. The patient had a left ureteral stent placed at [facility] in February for acute kidney injury, urosepsis likely due to a 1.5 cm left ureteral stone. He does endorse left flank pain. He had a repeat CT scan in September that demonstrated 9 mm left renal pelvic stone and a stent in good position. I discussed with him the risks associated with left ureteroscopy with holmium laser lithotripsy. Will arrange in the near future. I have personally reviewed the imaging and lab work relevant to the patient visit. Diagnosis: Nephrolithiasis Vitals: 06/27/24 1350 BP: 96/60 Pulse: 82 Temp: 36.8 ???C (98.2 ???F) Exam: Constitutional: Patient is in no acute distress Psychiatric: Normal affect HEENT: No head or neck abnormalities or jaundice Pulmonary: Patient is not laboring to breathe Neurologic: No obvious neurologic abnormalities Extremities: No deformity Cardiovascular: No obvious cyanosis of the extremities Integumentary: No obvious rash Review of systems: A 10 point review of systems was performed and was negative unless otherwise indicated Problem List Patient Active Problem List Diagnosis Acute coronary syndrome (CMS/HCC) Anxiety disorder Atypical chest pain Bacteremia due to methicillin resistant Staphylococcus aureus Benign essential hypertension Body mass index 40.0-44.9, adult (CMS/HCC) CHF exacerbation (CMS/HCC) Chronic diastolic congestive heart failure (CMS/HCC) Chronic respiratory failure with hypoxia ([facility]/HCC) Community acquired pneumonia of left lower lobe of lung COPD (chronic obstructive pulmonary disease) ([facility]/HCC) Coronary arteriosclerosis Dependence on supplemental oxygen Difficulty walking Dizziness Dyslipidemia Dyspnea Erectile dysfunction GERD with esophagitis HTN (hypertension) retirement current use of inhaled steroid Anemia, unspecified Major depressive disorder Mixed hyperlipidemia Mucopurulent chronic bronchitis ([facility]/HCC) Muscle weakness (generalized) Obstructive sleep apnea syndrome Old myocardial infarction Other chronic pain Pleural effusion, left Postconcussion syndrome Psychophysiological insomnia Pure hypercholesterolemia Rotator cuff tear arthropathy of left shoulder Rotator cuff tear, non-traumatic, right Solitary pulmonary nodule Spondylosis of lumbosacral region without myelopathy or radiculopathy Tachycardia Type 2 diabetes mellitus with hyperglycemia, without long-term current use of insulin (CMS/HCC) Weakness generalized AAA (abdominal aortic aneurysm) Acute cystitis Acute renal failure Age-related osteoporosis with current pathological fracture Congestive heart failure ([facility]/HCC) Electrolyte imbalance Fall Gastroesophageal reflux disease without esophagitis Gross hematuria History of myocardial infarction Hx of CABG S/P TAVR (transcatheter aortic valve replacement) Hypokalemia Hypomagnesemia Intractable back pain Iron deficiency anemia secondary to inadequate dietary iron intake Kidney stone Leukocytes in urine Megaloblastic anemia Morbid (severe) obesity due to excess calories ([facility]/HCC) Morbid obesity ([facility]/HCC) Pathological fracture of thoracic vertebra with delayed healing S/P PTCA (percutaneous transluminal coronary angioplasty) Sepsis with acute renal failure ([facility]) Severe aortic stenosis Shock ([facility]) Syncope Type 2 diabetes mellitus ([facility]) Urinary retention Vitamin D deficiency Anemia requiring transfusions Medical History No past medical history on file. Surgical History No past surgical history on file. Medications Ordered Prior to Encounter Current Outpatient Medications on File Prior to Visit Medication Sig Dispense Refill amitriptyline (Elavil) 25 mg tablet Use 1 tablet in the mouth or throat 1 (one) time each day. cholecalciferol, vitamin D3, (VITAMIN D3 ORAL) Take by mouth. FLUoxetine (PROzac) 20 mg capsule Take 1 capsule every day by oral route for 90 days. hydrOXYzine HCL (Atarax) 50 mg tablet Take 1-2 tablets by mouth if needed at bedtime. metFORMIN XR (Glucophage-XR) 750 mg 24 hr tablet Take 750 mg by mouth. PARoxetine (Paxil) 10 mg tablet Take 10 mg by mouth in the morning. pioglitazone (Actos) 30 mg tablet Take 30 mg by mouth in the morning. simvastatin (Zocor) 40 mg tablet Take 1 tablet every day by oral route for 90 days. ticagrelor (Brilinta) 90 mg tablet Take by mouth twice a day. acetaminophen (Tylenol) 325 mg tablet Take 650 mg by mouth every 8 (eight) hours if needed. albuterol 2.5 mg /3 mL (0.083 %) nebulizer solution Inhale 2.5 mg every 6 (six) hours if needed. aspirin 81 mg EC tablet Take 1 tablet by mouth in the morning. benzonatate (Tessalon) 200 mg capsule Take 200 mg by mouth if needed in the morning, at noon, and at bedtime. folic acid (Folvite) 1 mg tablet T (more content not included)...Normal [facility] Hospital - DublinURINALYSIS WITH MICROSCOPICon 10-31-2024 BILIRUBIN, TOTAL PRESENCE IN URINENegativeNormalNegativeUnMain Campus Medical CenterComment on above:Performed By: #### [id number] #### [facility] ([facility]) [address] [place], [place] [address]Kfvovjh (U)CloudyAbnormalClearUnMain Campus Medical CenterComment on above:Performed By: #### [id number] #### [facility] ([facility]) [address] [place], [place] [address]Pitih (U)ColorlessNormalColorless, Yellow, Light-Yellow [facility] - DublinComment on above:Performed By: #### [id number] #### [facility] ([facility]ER) [address] [place], [place] [address]BKNSVUQ (MG/DL) IN URINENormalNormalNormalUniversWilson Street HospitalComment on above:Performed By: #### [id number] #### [facility] ([facility]ER) [address] [place], [place] [address]NSOKQNVLDH PRESENCE IN URINESmallAbnormalNegwrangell medical centerUnMain Campus Medical CenterComment on above:Performed By: #### [id number] #### [facility] ([facility]) [address] [facility] [place] [address]Wnaeldg Ql (U)NegativeNormalNegativeUnMain Campus Medical CenterComment on above:Performed By: #### [id number] #### [facility] ([facility]) [address] [place], [place] [address]AHXGYWKEW ESTERASE PRESENCE IN URINE BY TEST STRIPLargeAbnormal NegativeUnMain Campus Medical CenterComment on above:Performed By: #### [id number] #### [facility] ([facility]) [address] [place], [place] [address]PEBLNHB PRESENCE IN URINENegativeNormalNegativeUnMain Campus Medical CenterComment on above:Performed By: #### [id number] #### [facility] ([facility]) [address] [place], [place] [address]mY (U)6.0 [pH]Normal5.0-8.0UnMain Campus Medical Center Comment on above:Performed By: #### [id number] #### [facility] ([facility]) [address] [place], [place] [address]Ipfhobp (U) [Mass/Vol]NegativeNormalNegativeUnMain Campus Medical CenterComment on above:Performed By: #### [id number] #### [facility] ([facility]) [address] [place] [address]CWG (#/HPF) IN URINE SEDIMENT6-10AbnormalNone Seen, 0-2 [facility] - DublinComment on above:Performed By: #### [id number] #### [facility] ([facility]) [address] [facility] [place], [place] [address]Hnopdkyi gravity (U) [Rel density]1.908Plrzlh1.010-1.030 [facility] - DublinComment on above:Performed By: #### [id number] #### [facility] ([facility]) [address] [place], [place] [address]ENJAHZOB EPITHELIAL CELLS (#/LPF) IN URINE SEDIMENTNone Seen NormalNone Seen, Occasional, FewUnMain Campus Medical CenterComment on above:Performed By: #### [id number] #### [facility] ([facility]) [address] [place], [place] [address]ZODHNMJEQQZW (MG/DL) IN URINENormalNormalNormalUniversity Akron Children's HospitalComment on above:Performed By: #### [id number] #### [facility] ([facility]) [address] [place], [place] [address]NTC (LEUKOCYTE) (#/HPF) IN URINE SEDIMENT>50AbnormalNone Seen, 0-2UnMain Campus Medical CenterComment on above:Performed By: #### [id number] #### [facility] ([facility]) [address] [place], [place] [address]IWHLlw [id number] PARTIAL THROMBOPLASTIN TIME IN PPP BY COAGULATION ASSAY25.4 PzrlhswBhrkpp64.0-35.0UnMain Campus Medical Center Comment on above:Result Comment: Clinical significance of the APTT is questionable in the presence of heparin.Performed By: #### [id number] #### [facility] ([facility]) [address] [place], [place] [address]WBFQB METABOLIC PANELon 49-85-8649Gjxow gap [Moles/Vol]10 mmol/L Normal7-20UnMain Campus Medical CenterComment on above:Performed By: #### [id number] #### [facility] ([facility]) [address] [place], [place] [address]Qvphcam [Mass/Vol]9.0 mg/dLNormal8.6-10.3UnMain Campus Medical CenterComment on above:Performed By: #### [id number] #### [facility] ([facility]) [address] [place], [place] [address]Qymekwsx [Moles/Vol]108 mmol/NTvoq61-048BtfamtmmzvMain Campus Medical CenterComment on above:Performed By: #### [id number] #### [facility] ([facility]) [address] [place], [place] [address]EB4 [Moles/Vol]26 mmol/KYvffkp41-18Yxtrxxspoz of [place] Medical CenterComment on above:Performed By: #### [id number] #### [facility] ([facility]) [address] [place] [address]Lkngtzjxac [Mass/Vol]1.21 mg/dLNormal0.70-1.30UnMain Campus Medical CenterComment on above:Performed By: #### [id number] #### [facility] ([facility]) [address] [place] [address]AEWGAJFXNV FILTRATION RATE ML/MIN/1.73 SQ M.HUDMNAYZU85.1 mL/min/1.73m*2Normal>60.0UnMain Campus Medical CenterComment on above: Result Comment: The [facility]???s estimated glomerular filtration rate (eGFR) will no [...] potential consequences that do not disproportionately affect anyone group of individuals.Performed By: #### [id number] #### [facility] ([facility]) [address] [place], [place] [address]Xpmrtuh [Mass/Vol]97 mg/kDRtlokc70-214EtnszlcesbMain Campus Medical CenterComment on above:Performed By: #### [id number] #### [facility] ([facility]) [address] [place], [place] [address]Pusdkwxht [Moles/Vol]3.8 mmol/LNormal3.5-5.1UnMain Campus Medical CenterComment on above:Performed By: #### [id number] #### [facility] ([facility]) [address] [place] [address]Nzznki [Moles/Vol]140 mmol/EDqshfx370-577ZeqollcdgpMain Campus Medical CenterComment on above:Performed By: #### [id number] #### [facility] ([facility]) [address] [place], [place] [address]Gyfe nitrogen [Mass/Vol]12 mg/dLNormal7-25UnMain Campus Medical CenterComment on above:Performed By: #### [id number] #### [facility] ([facility]) [address] [place], [place] [address]POMQ NITROGEN/CREATININE (MASS RATIO) IN SER/PLAS9.9Normal [facility] - DublinComment on above:Performed By: #### [id number] #### [facility] ([facility]) [address] [place], [place] [address]XMK WITH AUTO DIFFERENTIALon 01-74-2454Pqqljengj (Bld) [#/Vol] 0.08 10*3/uLNormal0.00-0.20UnMain Campus Medical CenterComment on above: Performed By: #### [id number] #### [facility] ([facility]) [address] [place], [place] [address]Vzwjzackk/100 WBC (Bld)0.9 %Normal0.0-1.0UnMain Campus Medical CenterComment on above:Performed By: #### [id number] #### [facility] ([facility]) [address] [place], [place] [address]Nlvezefezfz (Bld) [#/Vol]0.20 10*3/uLNormal0.00-0.50UnMain Campus Medical CenterComment on above:Performed By: #### [id number] #### [facility] ([facility]) [address] [place], [place] [address]Feqgfztxgdd/100 WBC (Bld)2.4 %Normal0.0-6.0UnMain Campus Medical CenterComment on above:Performed By: #### [id number] #### [facility] ([facility]) [address] [place], [place] [address]Jjxviutwjtx distribution width (RBC) [Ratio]15.4 %High11.5-15.0 [facility] - DublinComment on above:Performed By: #### [id number] #### [facility] ([facility]) [address] [place] [address]SFGLKPLUJAQ MEAN CORPUSCULAR HEMOGLOBIN CONCENTRATION (G/DL) BY JINQNNCNF86.7 g/zFAbetvv71.0-35.0UnMain Campus Medical CenterComment on above:Performed By: #### [id number] #### [facility] ([facility]) [address] [place] [address]Sihdynetod (Bld) [Volume fraction]30.6 %Low39.0-50.0UnMain Campus Medical CenterComment on above:Performed By: #### [id number] #### [facility] ([facility]) [address] [place], [place] [address]Mwrndzcrrc (Bld) [Mass/Vol]10.0 g/dLLow13.0-17.0UnMain Campus Medical CenterComment on above:Performed By: #### [id number] #### [facility] ([facility]) [address] [place] [address]Ajbkdsiz granulocytes (Bld) [#/Vol]0.06 10*3/uLNormal0.00-0.20 [facility] - DublinComment on above:Performed By: #### [id number] #### [facility] ([facility]) [address] [place] [address]Lwrgartb granulocytes/100 WBC (Bld)0.7 %Normal0.0-1.0UnMain Campus Medical CenterComment on above:Performed By: #### [id number] #### [facility] ([facility]) [address] [place] [address]Mhviwflfyag (Bld) [#/Vol]1.67 10*3/uLNormal1.20-4.00UnMain Campus Medical CenterComment on above:Performed By: #### [id number] #### [facility] ([facility]) [address] [place] [address]Ebiiuemjyql/100 WBC (Bld)19.7 %Low20.0-45.0UnMain Campus Medical CenterComment on above:Performed By: #### [id number] #### [facility] ([facility]) [address] [place] [address]VQW (RBC) [Entitic mass]36.0 elCsqd32.0-33.0UnMain Campus Medical CenterComment on above:Performed By: #### [id number] #### [facility] ([facility]) [address] [place] [place], [place] [address]AMI (RBC) [Entitic vol]110.1 aCLrzj25.0-98.0UnMain Campus Medical CenterComment on above:Performed By: #### [id number] #### [facility] ([facility]) [address] [place] [place], [place] [address]Rdegahksl (Bld) [#/Vol]0.60 10*3/uLNormal0.10-1.00UnMain Campus Medical CenterComment on above:Performed By: #### [id number] #### [facility] ([facility]) [address] [place], [place] [address]Yttqkjbmg/100 WBC (Bld)7.1 %Normal5.0-12.0UnMain Campus Medical CenterComment on above:Performed By: #### [id number] #### [facility] ([facility]) [address] [place] [place], [place] [address]Jhrplohurcd (Bld) [#/Vol]5.87 10*3/uLNormal1.60-7.60UnMain Campus Medical CenterComment on above:Performed By: #### [id number] #### [facility] ([facility]) [address] [facility] [place], [place] [address]Fjkboeetjtx/100 WBC (Bld)69.2 %Aydxgo02.0-72.0UnMain Campus Medical CenterComment on above:Performed By: #### [id number] #### [facility] ([facility]) [address] [place], [place] [address]DAJO (PER 100 WBCS) BY AUTOMATED COUNT0.0 %Ocosnx9EcoysgewyyMain Campus Medical CenterComment on above:Performed By: #### [id number] #### [facility] ([facility]) [address] [place] [address]HECNLPADU (10*3/UL) IN BLOOD AUTOMATED [id number] 10*3/uLNormal 150-400UnMain Campus Medical CenterComment on above:Performed By: #### [id number] #### [facility] ([facility]) [address] [place] [address]HFC (Bld) [#/Vol]2.78 10*6/uLLow4.20-5.70UnMain Campus Medical CenterComment on above:Performed By: #### [id number] #### [facility] ([facility]) [address] [place] [address]YHC (Bld) [#/Vol]8.48 10*3/uLNormal4.00-10.60UnMain Campus Medical CenterComment on above:Performed By: #### [id number] #### [facility] ([facility]) [address] [place] [address]LL ABDOMEN PELVIS WO IV CONTRASTon 80-89-6299OL ABDOMEN PELVIS WO IV CONTRASTCT ABDOMEN PELVIS WO IV CONTRAST 10/07/2024 11:15 AM CLINICAL INDICATIONS: Flank pain history of stones TECHNIQUE: Multidetector CT axial slices were obtained without IV contrast. Multiplanar reformats, MIP, volume rendered 3-D images were generated on a separate workstation and reviewed to further define anatomy and possible pathology. All CT scans at this facility use dose modulation, iterative reconstruction, and/or weight based dosing when appropriate to reduce radiation dose to as low as reasonably achievable COMPARISON: 07/30/2024 FINDINGS: Lung bases: Mild atelectasis Liver: Slightly lobulated contour possible early cirrhosis correlation with liver function tests recommended Spleen: Normal size Gallbladder: Normal Bile ducts: Normal Pancreas: Normal Adrenal glands: Normal Kidneys: Lobulated kidneys with multiple small nonobstructing calculi on the right largest around 2 to 3 mm. No hydronephrosis on the left there is a larger stone in the renal pelvis measuring approximately 9.5 mm in long axis. There is a left ureteral stent. Ureters: Left ureteral stent no definite stones in the ureter along the stent right ureter is unremarkable Bladder: Bladder wall is thickened even though the bladder is not well-distended may represent some underlying cystitis. Reproductive organs: Prostate normal size with some calcification. Bowel: Stomach unremarkable. Small bowel nondilated. No CT evidence of appendicitis or diverticulitis. Mesentery: No adenopathy Retroperitoneum: No adenopathy line peritoneum: No free air or free fluid Vessels: Endograft in the infrarenal abdominal aorta extensive atherosclerotic calcification extensive atherosclerotic calcification in the SMA and proximal renal arteries bilaterally. No hernia IMPRESSION: * Liver: Slightly lobulated contour possible early cirrhosis correlation with liver function tests recommended * Small nonobstructing right renal calculi * Left ureteral stent stone in the left pelvis measuring 9 mm * Bladder wall thickening likely cystitis * Infrarenal endograft. Extensive atherosclerotic calcification in the aorta. Extensive presentation in the SMA and proximal renal arteries cannot exclude some stenosis Electronically signed: Vinicius Wei MD.[facility] CenterEDNURSon 59-00-1392RNCPTUOg noticed blood in urine 3 days ago. Increase frequency also. Denied any pain or any other symptoms.NormalUnSheltering Arms Hospital CenterEDPROVon 80-07-9816AOAIVALnycawb of Present Illness Chief Complaint Patient presents with Blood in Urine Patient with a past medical history of ACS, hypertension, CHF, COPD, type 2 diabetes, AAA, acute cystitis, history of CABG, status post TAVR, and sepsis who was recently diagnosed with a kidney stone on the left and had a left ureteral stent placed in February and he was diagnosed with urosepsis at the time due to a 1.56 cm left stone presents for hematuria and worsening left flank pain. The patient does follow with urology here and they obtained a CT scan back in July that showed stable appearance of 16 mm stone left renal pelvis and a new 5 mm stone lower pole calyx of the left kidney and another adjacent 1 mm stone that was nonobstructing as well as 1 mm calyceal stones scattered in the right kidney. There was no hydronephrosis at the time and there is a left ureter double-J stent. Patient states he was post to get the stent removed. He endorses chronic shortness of breath that is not new but also states dizziness since he began to start peeing blood for the past 4 days and states the amount of blood has greatly increased. He denies any fevers, chest pain, or abdominal pain. [place] Coma Scale Score: 15 History Medical History[1] Surgical History[2] Family History[3] Social History[4] Review of Systems Review of Systems Constitutional: Negative for chills and fever. HENT: Negative for ear pain and sore throat. Eyes: Negative for pain and visual disturbance. Respiratory: Negative for cough and shortness of breath. Cardiovascular: Negative for chest pain and palpitations. Gastrointestinal: Negative for abdominal pain and vomiting. Genitourinary: Positive for flank pain and hematuria. Negative for dysuria. Musculoskeletal: Negative for arthralgias and back pain. Skin: Negative for color change and rash. Neurological: Positive for dizziness. Negative for seizures and syncope. All other systems reviewed and are negative. Physical Exam ED Triage Vitals Temp Heart Rate Resp BP 10/07/24 1052 10/07/24 1053 10/07/24 1052 10/07/24 1050 37.1 ???C (98.7 ???F) 76 18 152/81 SpO2 Temp src Heart Rate Source Patient Position 10/07/24 1050 -- -- -- 95 % BP Location FiO2 (%) -- -- Physical Exam Vitals and nursing note reviewed. Constitutional: General: He is not in acute distress. Appearance: He is well-developed. HENT: Head: Normocephalic and atraumatic. Mouth/Throat: Mouth: Mucous membranes are moist. Eyes: Conjunctiva/sclera: Conjunctivae normal. Cardiovascular: Rate and Rhythm: Normal rate and regular rhythm. Pulses: Normal pulses. Heart sounds: Normal heart sounds, S1 normal and S2 normal. No murmur heard. Pulmonary: Effort: Pulmonary effort is normal. No respiratory distress. Breath sounds: Normal breath sounds. Abdominal: Palpations: Abdomen is soft. Tenderness: There is no abdominal tenderness. There is left CVA tenderness. Musculoskeletal: General: No swelling. Cervical back: Neck supple. Right lower leg: No edema. Left lower leg: No edema. Skin: General: Skin is warm and dry. Capillary Refill: Capillary refill takes less than 2 seconds. Neurological: General: No focal deficit present. Mental Status: He is alert and oriented to person, place, and time. Psychiatric: Mood and Affect: Mood normal. Procedures ED Course & MDM ED Course as of 10/07/24 1456 Sun Oct 07, [address] abdomen pelvis wo IV contrast IMPRESSION: *Liver: Slightly lobulated contour possible early cirrhosis correlation with liver function tests recommended *Small nonobstructing right renal calculi *Left ureteral stent stone in the left pelvis measuring 9 mm *Bladder wall thickening likely cystitis *Infrarenal endograft. Extensive atherosclerotic calcification in the aorta. Extensive presentation in the SMA and proximal renal arteries cannot exclude some stenosis [JM] 1229 RBC, Urine(!): >20 [JM] 1229 Leukocytes, Urine(!): Large [JM] 1229 Nitrite, Urine: Negative [JM] 1229 Auto WBC: 8.48 [JM] 1230 Hemoglobin(!): 10.0 Of note, the patient had a CBC on 08/18/2024 that showed a hemoglobin of 9.4. The value obtained here is thus consistent with historical values. Low suspicion for acute hemorrhage at this time. [JM] 1230 Urology was paged at this time [JM] 1246 I discussed case with urology, who recommended antibiotics and follow-up with urology. No further recommendations at this time [JM] 1317 Patient was updated on his results. Plan for discharge with Bactrim and instructed follow-up with urology. The patient is agreeable to plan of care and all questions were answered at this time [JM] ED Course User Index [JM] Kun Baig MD Diagnoses as of 10/07/24 1456 Kidney stone Acute cystitis with hematuria Medical Decision Making Patient presents with hematuria, does have a ureteral stent placed due to a large kidney stone on the left side and f (more content not included)...Normal [facility] DublinHIGH SENSITIVITY TROPONIN Ion [id number] TROPONIN I (NG/L)23 ng/LHigh<20UnMain Campus Medical CenterComment on above:Performed By: #### [id number] #### [facility] ([facility]AK[facility]) [address] [place], [place] [address]GE TROPONIN I (NG/L)24 ng/LHigh<20UnMain Campus Medical CenterComment on above:Performed By: #### [id number] #### [facility] ([facility]ER) [address] [facility] [place] [address]TQQKOXT-KOMdm 57-81-1722RAE IN PPP BY COAGULATION ASSAY0.99 Normal0.90-1.10UnMain Campus Medical CenterComment on above:Result Comment: ACC RECOMMENDED INR FOR WARFARIN THERAPY CONDITION INR PROPHYLAXIS OF VENOUS THROMBOSIS 2-3 (HIGH-RISK SURGERY) TREATMENT OF VENOUS THROMBOSIS 2-3 TREATMENT OF PULMONARY EMBOLISM 2-3 PREVENTION OF SYSTEMIC EMBOLISM: 2-3 ACUTE MYOCARDIAL INFARCTION TISSUE HEART VALVES VALVULAR HEART DISEASE ATRIAL FIBRILLATION RECURRENT SYSTEMIC EMBOLISM MECHANICAL HEART VALVE 2.5-3.5 FROM: ORAL ANTICOAGULANTS. MECHANISM OF ACTION, CLINICAL EFFECTIVENESS, AND OPTIMAL THERAPEUTIC RANGE. CHEST 1995;108:231S-246S.Performed By: #### [id number] #### [facility] Advice WalletB[facility]) [address] [place] [place], [place] [address]MNTNNFOXKXP TIME (PT) IN PPP BY COAGULATION ASSAY13.1 Seconds Gjlagu01.3-14.8UnMain Campus Medical CenterComment on above:Performed By: #### [id number] #### [facility] ([facility]) [address] [place], [place] [address]FYQF AND SCREENon [id number] SCREENNegativeNormalUniThe University of Toledo Medical CenterComment on above:Performed By: #### [id number] #### [facility] ([facility]) [address] [place], [place] [address]QTP group Nom (Bld)ANormalUniversWilson Street Hospital Comment on above:Performed By: #### [id number] #### [facility] Advice [facility]letB[facility]) [address] [place], [place] [address]FA TYPE IN BLOODPositiveNormalUniThe University of Toledo Medical CenterComment on above:Performed By: #### [id number] #### [facility] ([facility]) [address] [place], [place] [address]UBIDUMIWMS MICROSCOPIC WITH REFLEX CULTUREon 48-75-7102RZP (#/HPF) IN URINE SEDIMENT>20AbnormalNone Seen, 0-2UnMain Campus Medical CenterComment on above:Performed By: #### [id number] #### [facility] ([facility]) [address] [place], [place] [address]MYBTSVYB EPITHELIAL CELLS (#/LPF) IN URINE SEDIMENTNone Seen NormalNone Seen, Occasional, FewUnMain Campus Medical CenterComment on above:Performed By: #### [id number] #### [facility] ([facility]) [address] [place] [address]HCD (LEUKOCYTE) (#/HPF) IN URINE SEDIMENT>50AbnormalNone Seen, 0-2UnMain Campus Medical CenterComment on above:Performed By: #### [id number] #### [facility] ([facility]) [address] [place], [place] [address]EQUQUITSTI WITH REFLEX CULTUREon 33-82-6568MJTMVFTYT, TOTAL PRESENCE IN URINENegativeNormalNegativeUnMain Campus Medical Center Comment on above:Performed By: #### [id number] #### [facility] ([facility]) [address] [place], [place] [address]Pgqhocv (U)TurbidAbnormalClearUnMain Campus Medical CenterComment on above:Performed By: #### [id number] #### [facility] ([facility]) [address] [place], [place] [address]Xccfq (U)BrownAbnormalColorless, Yellow, Light-YellowUnMain Campus Medical CenterComment on above:Performed By: #### [id number] #### [facility] ([facility]) [address] [place], [place] [address]VOBISHO (MG/DL) IN URINENormalNormalNormalUniversWilson Street HospitalComment on above:Performed By: #### [id number] #### [facility] ([facility]) [address] [place] [address]UUFCEQPFGH PRESENCE IN URINELargeAbnormalNegativeUnMain Campus Medical CenterComment on above:Performed By: #### [id number] #### [facility] ([facility]) [address] [place] [address]Dvtfseu Ql (U)NegativeNormalNegativeUnMain Campus Medical CenterComment on above:Performed By: #### [id number] #### [facility] ([facility]) [address] [place] [address]SRZSBUUBX ESTERASE PRESENCE IN URINE BY TEST STRIPLargeAbnormal NegativeUnMain Campus Medical CenterComment on above:Performed By: #### [id number] #### [facility] ([facility]) [address] [place] [address]ZBHETZY PRESENCE IN URINENegativeNormalNegativeUnMain Campus Medical CenterComment on above:Performed By: #### [id number] #### [facility] ([facility]) [address] [place] [address]mS (U)7.0 [pH]Normal5.0-8.0UnMain Campus Medical Center Comment on above:Performed By: #### [id number] #### [facility] ([facility]) [address] [place] [address]Brjaaud (U) [Mass/Vol]30 mg/dLAbnormalNegativeUnMain Campus Medical CenterComment on above:Performed By: #### [id number] #### [facility] ([facility]) [address] [place], [place] [address]Ntswjtet gravity (U) [Rel density]1.545Rcr8.010-1.030UnMain Campus Medical CenterComment on above:Performed By: #### [id number] #### [facility] ([facility]) [address] [place], [place] [address]ECDNUVBZDPZW (MG/DL) IN URINENormalNormalNormalUniversity of St. Luke'S Health [facility] The Woodlands HospitalComment on above:Performed By: #### [id number] #### [facility] (BEAKER) [address] [place] [address]YBUNG CULTURE, ROUTINEon 52-14-7530Jdbnimnr identified Cx Nom (U)<10,000 CFU/ML No Significant GrowthNormalUniversity of St. [facility] Comment on above:Performed By: #### [id number] ####[facility] (BEAKER)[address] [place] [address]M-ANOK NATRIURETIC PEPTIDEon 18-81-2514Ubrhidcwdew peptide B (Bld) [Mass/Vol]334 pg/mLHigh<=100Gu[facility] HospitalComment on above:Performed By: #### BNP ####[facility] ([address] [address] VIRCBC WITH AUTO DIFFERENTIALon 08-18-2024 BASOPHILS ABSOLUTE COUNT (10*3/UL) BY AUTOMATED COUNT0.1 10*3/uLNormal0.0-0.2 [facility] HospitalComment on above:Performed By: #### CBCA ####[facility] ([address] [id number] VIRBASOPHILS RELATIVE PERCENT BY AUTOMATED COUNT0.7 %NormalProMethodist Hospital AtascosaComment on above:Performed By: #### CBCA ####[facility] ([facility])[address] [place] [address] [id number] VIRCELLAVISION DIFFERENTIAL TYPE AUTOMATED DIFFERENTIALNormalProMethodist Hospital AtascosaComment on above:Performed By: #### CBCA ####[facility] ([facility])[address] [place] [address] [id number] VIREosinophils (Bld) [#/Vol]0.1 10*3/uLNormal0.0-0.4 [facility] HospitalComment on above:Performed By: #### CBCA ####[facility] ([facility])[address] [place], [place] [address]E.[place], [id number] VIR EOSINOPHILS RELATIVE PERCENT BY AUTOMATED COUNT1.1 %NormalGuernsey Memorial HospitalComment on above:Performed By: #### CBCA ####[facility] ([address], [id number] VIRErythrocyte distribution width (RBC) [Ratio]15.6 %High11.5-15Gu[facility] Memorial HospitalComment on above: Performed By: #### CBCA ####[facility] ([address], [id number] VIRHematocrit (Bld) [Volume fraction]27.7 %Gbl47-77 [facility] HospitalComment on above:Performed By: #### CBCA ####[facility] ([address] [place] [place], [id number] VIRHemoglobin (Bld) [Mass/Vol]9.4 g/pCDqx78-01AlsVulhfcGuernsey Memorial HospitalComment on above: Performed By: #### CBCA ####[facility] ([facility])[address] [place] [address].[place], [id number] VIRLYMPHOCYTES ABSOLUTE COUNT (10*3/UL) BY AUTOMATED COUNT1.1 10*3/uLNormal1.0-3.5Pro[facility] Norris [facility]. Cancer HospitalComment on above: Performed By: #### CBCA ####[facility] ([facility])[address] [place], [place] [address]E.[place], [id number] VIRLYMPHOCYTES RELATIVE PERCENT BY AUTOMATED COUNT14.1 %NormalGuernsey Memorial HospitalComment on above:Performed By: #### CBCA ####[facility] ([address], [id number] VIRMCH (RBC) [Entitic mass]37.0 plYnfw41-53ZlcTyifxu Lagrange HospitalComment on above:Performed By: #### CBCA ####[facility] ([address], [id number] VIRMCHC (RBC) [Mass/Vol]34.1 g/oQItiiqn70-17 [facility] HospitalComment on above:Performed By: #### CBCA ####[facility] ([address], [address] VIRMCV (RBC) [Entitic vol]108 mZHfzp92-973CqhUxhzcrGuernsey Memorial HospitalComment on above: Performed By: #### CBCA ####[facility] ([address], [id number] VIRMONOCYTES ABSOLUTE COUNT (10*3/UL) BY AUTOMATED COUNT0.5 10*3/uLNormal0.0-0.9[facility] HospitalCompontiac general hospital on above: Performed By: #### CBCA ####[facility] ([address], [place] VIRMONOCYTES RELATIVE PERCENT BY AUTOMATED COUNT6.4 % NormalGuernsey Memorial HospitalCompontiac general hospital on above:Performed By: #### CBCA ####[facility] ([address], [id number] VIRNEUTROPHILS ABSOLUTE COUNT BY AUTOMATED COUNT5.9 10*3/uLNormal1.5-6.6 [facility] HospitalCompontiac general hospital on above:Performed By: #### CBCA ####[facility] ([address], [address] VIR NEUTROPHILS RELATIVE PERCENT BY AUTOMATED COUNT77.7 %NormalGuernsey Memorial HospitalCompontiac general hospital on above:Performed By: #### CBCA ####[facility] ([address], [id number] VIRPlatelet mean volume (Bld) [Entitic vol]9.3 fLNormal7-12PSt. Vincent HospitalComment on above: Performed By: #### CBCA ####[facility] ([facility])[address] [place], [place] [address]T AVE.[place], [id number] VIRPlatelets (Bld) [#/Vol]150 10*3/aHWlrxqb337-039 [facility] HospitalComment on above:Performed By: #### CBCA ####[facility] ([address] [id number] VIRRBC COUNT 2.55 X10E12/LLow4.1-5.7Gu[facility]sey Memorial HospitalComment on above:Performed By: #### CBCA ####[facility] ([address] [id number] VIRWBC (Bld) [#/Vol]7.6 10*3/uLNormal4-11ProMethodist Hospital AtascosaComment on above:Performed By: #### CBCA ####[facility] ([address] [id number] VIRCOMPREHENSIVE METABOLIC PANELon 24-72-5516Zuxelxb [Mass/Vol]2.8 g/dLLow3.2-5.3PSt. [facility] Hospital Comment on above:Performed By: #### CMP ####[facility] ([place] [address] [place] [address] VIRALP [Catalytic activity/Vol]252 U/L Aztz32-333HtbZxotfuMethodist Hospital AtascosaComment on above:Performed By: #### CMP ####[facility] ([address], [place] [address] VIRALT [Catalytic activity/Vol]50 U/LHigh<=40[facility] Comment on above:Performed By: #### CMP ####[facility] ([address] [place] [address] VIRAnion gap [Moles/Vol]5 mmol/LNormal 5-15ProMethodist Hospital AtascosaComment on above:Performed By: #### CMP ####[facility] ([address], [place] [address] VIRAST [Catalytic activity/Vol]78 U/LHigh<=41ProMethodist Hospital [facility]a Comment on above:Performed By: #### CMP ####[facility] ([address] [place] [address] VIRBilirubin [Mass/Vol]0.2 mg/dLLow 0.3-1.2PSt. Vincent HospitalComment on above:Performed By: #### CMP ####[address], [place] [address] VIRCalcium [Mass/Vol]8.7 mg/dLNormal8.5-10.5PSt. Vincent Hospital Comment on above:Performed By: #### CMP ####[facility] ([address] [place] [address] VIRChloride [Moles/Vol]111 mmol/LHigh 98-109ProMethodist Hospital AtascosaComment on above:Performed By: #### CMP ####[address], [place] [address] VIRCO2 [Moles/Vol]24 mmol/PEnwbug79-67AfpExzdweSt. Vincent HospitalComment on above:Performed By: #### CMP ####[facility] ([address] [place] [address] VIRCreatinine [Mass/Vol]1.02 mg/dLNormal 0.70-1.20ProMethodist Hospital AtascosaComment on above:Result Comment: METHOD TRACEABLE TO IDMS STANDARDPerformed By: #### CMP ####[facility] ([address] [place] [address] VIRGFR/1.73 sq M.predicted among non-blacks MDRD (S/P/Bld) [Vol rate/Area]76 mL/min/{1.73_m2}Normal>=60 [facility] Memorial HospitalComment on above:Result Comment: eGFR not reported due to non-numeric value for Creatinine.Reported eGFR is based ontheCKD-EPI 2020 equation that doesnot use a race coefficient.Performed By: #### CMP ####[facility] ([address], [place] [address] VIRGlucose [Mass/Vol]138 mg/yLJvgu11-75GiiXvjavzMethodist Hospital AtascosaComment on above:Performed By: #### CMP ####[facility] ([address] [place] [address] VIRPotassium [Moles/Vol]3.5 mmol/LNormal3.5-5.0 [facility] HospitalComment on above:Performed By: #### CMP ####[facility] ([address] [place] [address] VIRProtein [Mass/Vol]7.2 g/dLNormal6.0-8.0ProMethodist Hospital AtascosaComment on above: Performed By: #### CMP ####[address] [place] [address] VIRSodium [Moles/Vol]140 mmol/BCpfcxs465-500ZbyVdihdn Fremont HospitalComment on above:Performed By: #### CMP ####[facility] ([address] [place] [address] VIRUrea nitrogen [Mass/Vol]12 mg/dLNormal5-27ProMethodist Hospital AtascosaComment on above:Performed By: #### CMP ####[facility] ([address] [address] VIRTROP I, HIGH SENSITIVITY 1 HOURon 97-61-4891ROGYZDKT I, HIGH VXCTLPLBHDB46 ng/LHigh<21ProMethodist Hospital AtascosaComment on above:Order Comment: Elevations of hs-Troponin may be due to causesother than myocardial ischemia.Recommend serial hs-Troponin testing be performed.For the initial evaluation and management of chestpain patients, refer to the algorithms linked below.Emergency Patient:[email or web address]:[email or web address] By: #### [email or web address] ####[facility] ([address] [place] [address] VIRTROPONIN I, HIGH SENSITIVITY 0 HOURon 26-11-2897ZBVDZKFU I, HIGH QZDLXYHLQBQ08 ng/LHigh <21[facility] HospitalComment on above:Performed By: #### TNIHS0 ####[facility] ([address] [place] [address] VIRXR CHEST 1 VWon 63-49-1522UI CHEST [address] [facility] CT ABDOMEN PELVIS WO IV CONTRASTon 30-90-8539YV ABDOMEN PELVIS WO IV CONTRAST History: Kidney stones Comparison 03/17/2015 STUDY: Abdomen and pelvis CT without intravenous contrast CT ABDOMEN PELVIS WO IV CONTRAST TECHNIQUE: CT performed through the abdomen and pelvis without IV contrast .The lack of IV contrast compromises evaluation of the abdominal parenchymal organs, adenopathy, and bowel.Automated exposure control was utilized. FINDINGS: Stable appearance of 16 mm stone in the left renal pelvis There is a new 5 mm stone lower pole calyx left kidney and another adjacent 1 mm stone nonobstructing. Right kidney shows 1 mm calyceal stones scattered throughout the kidney No hydronephrosis There is a left ureter double-J stent noted There are bilateral fat-containing inguinal hernias unchanged No evidence for small bowel obstruction Appendix and terminal ileum appropriate Assessment of the abdominal parenchymal organs is compromised without oral or IV contrast There is mildly distended small bowel loops suggest mild ileus Lung bases show no acute findings No free air or free fluid Abdominal aorta bifurcated biiliac endograft is noted and not well assessed without IV contrast Grossly the liver gallbladder spleen pancreas and adrenal glands show no acute findings but very compromised assessment without IV or oral contrast IMPRESSION: Stable appearance of 16 mm stone in the left renal pelvis There is a new 5 mm stone lower pole calyx left kidney and another adjacent 1 mm stone nonobstructing. Right kidney shows 1 mm calyceal stones scattered throughout the kidney No hydronephrosis There is a left ureter double-J stent noted Consider repeat CT with oral and IV contrast if you suspect occult process All CT scans at this facility use dose modulation, iterative reconstruction, and/or weight based dosing when appropriate to reduce radiation dose to as low as reasonably achievable. Electronically signed: Elbert Faust. Not Donovanid Interpretation CodeUnMain Campus Medical CenterOffice Visiton [id number]-up [id number] Brian Mandel 1950 M Date Provider Department Center 06/27/2024 TRISTAN QUINTERO [facility] Second Fl No family history on file Level of Service:85820 [place] OFFICE/OUTPATIENT NEW LOW MDM 30 MINUTES Reason for Visit and Comments: Nephrolithiasis [769682] - STENT PLACED in februaryNormalUniversWilson Street HospitalALBUMINon 36-25-9094Qnawxyf [Mass/Vol]2.8 g/dLLow3.2-5.3[facility] Cancer HospitalComment on above:Performed By: #### 1744-2, CBCA, 2884-2, , 6767-07, BMP, 1750-08, 1974-03, 1919-09 ####[facility] ([id number])[address] [place], [place] [address]ALKALINE PHOSPHATASEon 08-70-7193MNB [Catalytic activity/Vol]123 U/XQbhyil08-025BwrZtqcdn [facility] Cancer HospitalComment on above:Performed By: #### 1744-2, CBCA, 2885-2, - 9, 6767-6, BMP, 1750-08, 1974-03, 1919-09 ####[facility] ([id number])[address] [place] [address], [place] [address]YVZ No additional P-5'-P [Catalytic activity/Vol]on 77-30-2356YGK [Catalytic activity/Vol]15 U/L Normal0-40ProMethodist Hospital AtascosaComment on above:Performed By: #### 1744-2, CBCA, 2885-2, 35994-5, 6767-6, BMP, 1750-08, 1974-03, 1919-09 ####[facility] ([id number])[address] [place] [address] 36658CSPaz 43-62-2190TCA [Catalytic activity/Vol]28 U/LNormal0-41[facility] Comment on above:Performed By: #### 1744-2, CBCA, 2885-2, 31874-9, 6767-6, BMP, 1750-08, 1974-03, 1919-09 ####[facility] ([id number])[address] [place] [address] 66054PCHMU METABOLIC PANLon 09-12-5310Frotp gap [Moles/Vol]10 mmol/LNormal5-15ProMethodist Hospital AtascosaComment on above: Performed By: #### 1744-2, CBCA, 2885-2, 45996-3, 6767-6, BMP, 1750-08, 1974-03, 1919-09 ####[facility] ([id number])[address] [place] [address] 79203Pjxxxxw [Mass/Vol]8.8 mg/dLNormal8.5-10.5[facility] Cancer HospitalComment on above:Performed By: #### 1744-2, CBCA, 2885-2, 97902-6, 6767-6, BMP, 1750-08, 1974-03, 1919-09 ####[facility] ([id number])[address] [place] [address] 61242Hxepzkbt [Moles/Vol]102 mmol/JMmfggw45-114ImdVjookiMethodist Hospital AtascosaComment on above: Performed By: #### 1744-2, CBCA, 2885-2, 19682-2, 6767-6, BMP, 1750-08, 1974-03, 1919-09 ####[facility] ([id number])[address] [place] [address] 29084PO4 [Moles/Vol]24 mmol/EXwicyi97-85SixBeszhq [facility] Cancer HospitalComment on above:Performed By: #### 1744-2, CBCA, 2885-2, 62921-5, 6767- , BMP, 1750-08, 1974-03, 1919-09 ####[facility] ([id number])[address] [place] [address] 12150Qvamxrlenp [Mass/Vol]1.54 mg/dL High0.70-1.20ProMethodist Hospital AtascosaComment on above:Result Comment: METHOD TRACEABLE TO IDMS STANDARDPerformed By: #### 1744-2, CBCA, 2885-2, 57715-3, 6767-, BMP, 1750-08, 1974-03, 1919-09 ####[facility] ([id number])[address] [place] [address] 73861HQA/1.73 sq M.predicted among non-blacks MDRD (S/P/Bld) [Vol rate/Area]46 mL/min/{1.73_m2} Low>59ProMethodist Hospital AtascosaComment on above:Result Comment: Reported eGFR is based on theCKD-EPI 2020 equation that doesnot use a race coefficient. Performed By: #### 1744-2, CBCA, 2885-2, 44807-2, 6, BMP, 1750-08, 1974-03, 1919-09 ####[facility] ([id number])[address] [place] [address] 51942Izglbdo [Mass/Vol]99 mg/oDNnrpta04-38EryItzzybMethodist Hospital AtascosaComment on above:Performed By: #### 1744-2, CBCA, 2885-2, 31813-1, 68- 6, BMP, 1750-08, 1974-03, 1919-09 ####[facility] ([id number])[address] [place] [address] 30191Vavhgoehv [Moles/Vol]2.9 mmol/L Low3.5-5.0ProMethodist Hospital AtascosaComment on above:Performed By: #### 1744-2, CBCA, 2885-2, 55043-6, 6767-6, BMP, 1750-08, 1974-03, 1919-09 ####[facility] ([id number])[address] [place] [address] 08775Oenzxl [Moles/Vol]136 mmol/NImvbhk039-927ZxwVeyiky Fremont HospitalComment on above: Performed By: #### 1744-2, CBCA, 2885-2, 15953-1, 6767-6, BMP, 1750-08, 1974-03, 1919-09 ####[facility] ([id number])[address] [place] [address] 65706Tdmh nitrogen [Mass/Vol]15 mg/dLNormal5-27ProMethodist Hospital AtascosaComment on above:Performed By: #### 1744-2, CBCA, 2885-2, 52069- 9, 6767-6, BMP, 1750-08, 1974-03, 1919-09 ####[facility] ([id number])[address] [place] [address] 70069PHGRVGXAG,TOTALon 92-07-0510Meeppmzmi [Mass/Vol]0.8 mg/dLNormal0.3-1.2PSt. [facility] Comment on above:Performed By: #### 1744-2, CBCA, 2885-2, 16971-3, 68-6, BMP, 1750-08, 1974-03, 1919-09 ####[facility] ([id number])[address] [place] [address] 10509SPQ AND AUTO DIFFon 36-98-3823YUEHVVHJ BASOPHIL0.0 X10E9/LNormal0.0-0.2[facility] Cancer HospitalComment on above: Performed By: #### 1744-2, CBCA, 2885-2, 87650-2, 6767-6, BMP, 1750-08, 1974-03, 1919-09 ####[facility] ([id number])[address] [place] [address] 28388BPEQYYJK NEUTROPHIL5.5 X10E9/LNormal1.5-6.6ProMethodist Hospital AtascosaComment on above:Performed By: #### 1744-2, CBCA, 2885-2, - 9, 6767-6, BMP, 1750-08, 1974-03, 1919-09 ####[facility] ([id number])[address] [place] [address] 67966Leaghfipi/100 WBC (Bld)0.5 %NormalProMethodist Hospital AtascosaComment on above:Performed By: #### 1744-2, CBCA, 2885-2, 66581-5, 6767-6, BMP, 1750-08, 1974-03, 1919-09 ####[facility] ([id number])[address] [place] [address] 57532Sdcgylsqpel (Bld) [#/Vol]0.2 10*3/uLNormal0.0-0.4[facility] Comment on above:Performed By: #### 1744-2, CBCA, 2885-2, 00480-8, 6767-6, BMP, 1750-08, 1974-03, 1919-09 ####[facility] ([id number])[address] [place] [address] 18437Napvjyaftra/100 WBC (Bld)1.8 %Normal ProMbullock county hospitala [facility] Cancer HospitalComment on above:Performed By: #### 1744-2, CBCA, 2885-2, 33563-6, 6767-6, BMP, 1750-08, 1974-03, 1919-09 ####[facility] ([id number])[address] [place] [address] 81838 Erythrocyte distribution width (RBC) [Ratio]16.3 %High11.5-15.0ProMethodist Hospital AtascosaComment on above:Performed By: #### 1744-2, CBCA, 288-2, 56630-2, 6767-6, BMP, 1750-08, 1974-03, 1919-09 ####[facility] ([id number])[address] [place] [address] 84474Skdwdmwpgk (Bld) [Volume fraction]24.4 %Ftw07-81JbyMnstrzMethodist Hospital AtascosaComment on above: Performed By: #### 1744-2, CBCA, 288-2, 62396-6, 6767-6, BMP, 1750-08, 1974-03, 1919-09 ####[facility] ([id number])[address] [place] [address] 46171Ohzbmwsfnx (Bld) [Mass/Vol]8.4 g/dLLow13.0-17.0[facility] HospitalComment on above:Performed By: #### 1744-2, CBCA, 2885-2, - 9, 6767-6, BMP, 1750-08, 1974-03, 1919-09 ####[facility] ([id number])[address] [place] [address] 42541Lkrbuewyvna (Bld) [#/Vol]2.1 10*3/uLNormal1.0-3.5ProMedKindred HospitalComment on above: Performed By: #### 1744-2, CBCA, 2885-2, 09091-7, 68-6, BMP, 1750-08, 1974-03, 1919-09 ####[facility] ([id number])[address] [place] [address] 97096Xlbjvlwynfk/100 WBC (Bld)25.2 %NormalProMethodist Hospital AtascosaComment on above:Performed By: #### 1744-2, CBCA, 2885-2, 66272-3, 68- 6, BMP, 1750-08, 1974-03, 1919-09 ####[facility] ([id number])[address] [place] [address] 44028ABU (RBC) [Entitic mass]35.1 pg Joyn96-54GpwEsdtmmMethodist Hospital AtascosaComment on above:Performed By: #### 1744-2, CBCA, 2885-2, 31743-3, 6767-6, BMP, 1750-08, 1974-03, 1919-09 ####[facility] ([id number])[address] [place] [address] 20690VNTC (RBC) [Mass/Vol]34.6 g/oKJkcdza35-53NhsYvvqvvGuernsey Memorial HospitalComment on above: Performed By: #### 1744-2, CBCA, 2885-2, 94807-1, 6767-6, BMP, 1750-08, 1974-03, 1919-09 ####[facility] ([id number])[address] [place] [address] 01260KLC (RBC) [Entitic vol]101 nABfat65-868PapBpnafvMethodist Hospital AtascosaComment on above:Performed By: #### 1744-2, CBCA, 2885-2, 71637-4, 68- 6, BMP, 1750-08, 1974-03, 1919-09 ####[facility] ([id number])[address] [place] [address] 56440Vfazqqpyr (Bld) [#/Vol]0.6 10*3/uLNormal0-0.9[facility] Cancer HospitalComment on above:Performed By: #### 1744-2, CBCA, 2885-2, 58781-8, 68-6, BMP, 1750-08, 1974-03, 1919-09 ####[facility] ([id number])[address] [place] [address] 43194Nfqkmmzct/100 WBC (Bld)7.5 %NormalGuernsey Memorial HospitalComment on above:Performed By: #### 1744-2, CBCA, 2885-2, 01912-3, 6767-6, BMP, 1750-08, 1974-03, 1919-09 ####[facility] ([id number])[address] [place] [address] 75091Ewvatghzkmc/100 WBC (Bld)65.0 %NormalProMethodist Hospital AtascosaComment on above:Performed By: #### 1744-2, CBCA, 2885-2, - 9, 6767-6, BMP, 1750-08, 1974-03, 1919-09 ####[facility] ([id number])[address] [place] [address] 08200Bsjvxknv mean volume (Bld) [Entitic vol]10.6 fLNormal7-12[facility] Cancer HospitalComment on above:Performed By: #### 1744-2, CBCA, 2885-2, 12576-6, 6767-6, BMP, 1750-08, 1974-03, 1919-09 ####[facility] ([id number])[address] [place] [address] 59299Kmkwbkfts (Bld) [#/Vol]116 10*3/pEMjl732-491 [facility] Cancer HospitalComment on above:Performed By: #### 1744-2, CBCA, 2885-2, 52387-0, 6768-6, BMP, 1750-08, 1974-03, 1919-09 ####[facility] ([id number])[address] [place] [address] 61873FGH COUNT2.40 X10E12/LLow4.10-5.70ProMethodist Hospital AtascosaComment on above: Performed By: #### 1744-2, CBCA, 2885-2, 89694-1, 6767-6, BMP, 1750-08, 1974-03, 1919-09 ####[facility] ([id number])[address] [place] [address] 90790EBI (Bld) [#/Vol]8.5 10*3/uLNormal4.0-11.0ProMethodist Hospital AtascosaComment on above:Performed By: #### 1744-2, CBCA, 288-2, - 9, 6767-6, BMP, 1750-08, 1974-03, 1919-09 ####[facility] ([id number])[address] [place] [address] 85731FGKWAJHFXbf 53-50-1909Lpaabdpbs [Mass/Vol]1.2 mg/dLLow1.8-2.6[facility] Comment on above:Performed By: #### 1744-2, CBCA, 2885-2, 72098-1, 6767-6, BMP, 1750-08, 1974-03, 1919-09 ####[facility] ([id number])[address] [place] [address] 73909PGTMW PROTEINon 36-54-8351Tasdjmo [Mass/Vol] 7.8 g/dLNormal6.0-8.0ProMethodist Hospital AtascosaComment on above:Performed By: #### 1744-2, CBCA, 2885-2, 14893-3, 6767-6, BMP, 1750-08, 1974-03, 1919-09 ####[facility] ([id number])[address] [place] [address], [place], [place] [address]MOR AND AUTO DIFFon 18-88-3138PKVTTAMV BASOPHIL0.0 X10E9/L Normal0.0-0.2[facility] Ward HospitalComment on above:Performed By: #### MARVA, , CMP ####[facility] ([id number])[address], [address], [place] [address]KLITMMPO NEUTROPHIL4.0 X10E9/LNormal1.5-6.6[facility] HospitalComment on above:Performed By: #### MARVA, , CMP ####[facility] ([id number])[address], [address], [place] [address] Basophils/100 WBC (Bld)0.6 %NormalProMedica Ward HospitalComment on above: Performed By: #### MARVA, , CMP ####[facility] ([id number])[address], [address], [place] [address]Dmaqiqvaqto (Bld) [#/Vol] 0.1 10*3/uLNormal0.0-0.4Pro[facility] HospitalComment on above:Performed By: #### MARVA, , CMP ####[facility] ([id number])[address], [address], [place] [address]Oojkwhryuer/100 WBC (Bld)2.6 %Normal [facility] HospitalComment on above:Performed By: #### MARVA, , CMP ####[facility] ([id number])[address], [address], [place] [address]Osslrsjfkxf distribution width (RBC) [Ratio]17.2 %High11.5-15.0[facility] Ward HospitalComment on above:Performed By: #### MARVA, , CMP ####[facility] ([id number])[address], [address] [place] [address] Hematocrit (Bld) [Volume fraction]23.6 %Jfr73-30BrwVdonij Ward HospitalComment on above:Performed By: #### MARVA, , CMP ####[facility] ([id number])[address], [address] [place] [address]49[address]Dakbhypjlx (Bld) [Mass/Vol] 7.9 g/dLLow13.0-17.0Pro[facility] HospitalComment on above:Performed By: #### MARVA, , CMP ####[facility] ([id number])[address], [address] [place] [address] 96891Caekwcrqpvj (Bld) [#/Vol]1.0 10*3/uLNormal1.0-3.5 [facility] HospitalComment on above:Performed By: #### MARVA, , CMP ####[facility] ([id number])[address], [address] [place] [address] 34539Phrwaklmibl/100 WBC (Bld)18.3 %NormalProCommunity Memorial Hospital HospitalComment on above:Performed By: #### MARVA, , CMP ####[facility] ([id number])[address], [address] [place] [address] 10252FUM (RBC) [Entitic mass] 34.1 izKisz24-09ExgPzhyph Ward HospitalComment on above:Performed By: #### MARVA, , CMP ####[facility] ([id number])[address], [address] [place] [address] 311[address]QGJG (RBC) [Mass/Vol]33.5 g/oSQbeemd32-76ZgeOlucrc [facility] HospitalComment on above:Performed By: #### MARVA, 52697-3, CMP ####[facility] ([id number])[address], [address], [place] [address]ZHK (RBC) [Entitic vol]102 fKNhab59-343EawKquyuy Ward HospitalComment on above: Performed By: #### MARVA, , CMP ####[facility] ([id number])[address], [address], [place] [address]Peisqrayz (Bld) [#/Vol]0.4 10*3/uLNormal0-0.9[facility] HospitalComment on above:Performed By: #### MARVA , CMP ####[facility] ([id number])[address], [address], [place] [address]Vyvgnqdjz/100 WBC (Bld)7.3 %NormalProMedica Ward HospitalComment on above:Performed By: #### MARVA, , CMP ####[facility] ([id number])[address], [address] [address] Neutrophils/100 WBC (Bld)71.2 %NormalProMedica Ward HospitalComment on above: Performed By: #### MARVA, , CMP ####[facility] ([id number])[address], [address], [place] [address]Zhlqatvj mean volume (Bld) [Entitic vol]10.0 fLNormal7-12Pro[facility] HospitalComment on above: Performed By: #### MRAVA, , CMP ####[facility] ([id number])[address], [address], [place] [address]Pebeotzrj (Bld) [#/Vol]103 10*3/uSKic978-399BchPgenwz Ward HospitalComment on above:Performed By: #### MARVA, , CMP ####[facility] ([id number])[address], [address], [place] [address]IOO COUNT2.32 X10E12/LLow4.10-5.70[facility] HospitalComment on above:Performed By: #### MARVA, , CMP ####[facility] ([id number])[address], [address], [place] [address]MBQ (Bld) [#/Vol]5.7 10*3/uLNormal4.0-11.0Pro[facility] HospitalComment on above: Performed By: #### MARVA, , CMP ####[facility] ([id number])[address], [place] [address]TUOEVDEOBZLYO METABOLIC PANELon 33-99-6948Jhqlplt [Mass/Vol]2.3 g/dLLow3.2-5.3PThe [facility]Medical Centerica [facility] Comment on above:Performed By: #### MARVA, , CMP ####[facility] ([id number])[address], [address], [place] [address]SNM [Catalytic activity/Vol]115 U/KScoetd82-109EjbOwgnyv Ward HospitalComment on above: Performed By: #### MARVA, , CMP ####[facility] ([id number])[address], [place] [address]MXU [Catalytic activity/Vol]8 U/LNormal0-40[facility] HospitalComment on above:Performed By: #### MARVA, , CMP ####[facility] ([id number])[address], [place] [address]Iciis gap [Moles/Vol]5 mmol/LNormal5-15 [facility] HospitalComment on above:Performed By: #### MARVA, , CMP ####[facility] ([id number])[address], [place] [address]INI [Catalytic activity/Vol]16 U/LNormal0-41Pro[facility] Hospital Comment on above:Performed By: #### MARVA , CMP ####[facility] ([id number])[address], [place] [address]Aagtadchp [Mass/Vol]0.4 mg/dLNormal0.3-1.2PPeoples Hospital HospitalComment on above: Performed By: #### MARVA , CMP ####[facility] ([id number])[address], [address], [place] [address]Veoojjl [Mass/Vol]8.6 mg/dL Normal8.5-10.5PPeoples Hospital HospitalComment on above:Performed By: #### MARVA , CMP ####[facility] ([id number])[address], [address], [place] [address]Sxirctmf [Moles/Vol]111 mmol/FOzuq51-127EorQqqfxj [place] HospitalComment on above:Performed By: #### MARVA , CMP ####[facility] ([id number])[address], [address], [place] [address]YW1 [Moles/Vol]23 mmol/EUdmzeb43-24TxjMlfqbc [place] HospitalComment on above: Performed By: #### MARVA , CMP ####[facility] ([id number])[address], [place] [address]Ujcyeplbzo [Mass/Vol]1.30 mg/dLNormal0.60-1.30Pro[facility] HospitalComment on above:Result Comment: METHOD TRACEABLE TO IDMS STANDARDPerformed By: #### MARVA , CMP ####[facility] ([id number])[address] [address], [place] [address]CQQ/1.73 sq M.predicted among non-blacks MDRD (S/P/Bld) [Vol rate/Area]57 mL/min/{1.73_m2}Low>59Pro[facility] HospitalComment on above:Result Comment: Reported eGFR is based on theCKD-EPI 2020 equation that doesnot use a race coefficient.Performed By: #### MARVA , CMP ####[facility] ([id number])[address] [address], [place] [address]Yhtcafd [Mass/Vol]97 mg/vFZoqqis06-07XvdPtrkzh [place] HospitalComment on above:Performed By: #### MARVA , CMP ####[facility] ([id number])[address] [address]Kjcfsgkqz [Moles/Vol]4.4 mmol/LNormal3.5-5.0[facility] HospitalComment on above:Performed By: #### MARVA , CMP ####[facility] ([id number])[address] [address] [place] [address] Protein [Mass/Vol]5.9 g/dLLow6.0-8.0[facility] HospitalComment on above: Performed By: ###Carolyn DURHAM , CMP ####[facility] ([id number])[address] [address], [place] [address]Uvfvme [Moles/Vol]139 mmol/SYxvvgn056-426GleCtmnkj [facility] HospitalComment on above:Performed By: #### MARVA , CMP ####[facility] ([id number])[address] [address], [place] [address]Kemj nitrogen [Mass/Vol]11 mg/dLNormal5-27Pro[facility] Ward HospitalComment on above:Performed By: #### MARVA, 09320-3, CMP ####[facility] ([id number])[address] [place] [address], [address] [place] [address] MAGNESIUMon 75-55-1478Bmeygchtx [Mass/Vol]1.3 mg/dLLow1.8-2.6ProAkron Children'S HospitalComment on above:Performed By: #### MARVA, 88684-5, CMP ####[facility] ([id number])[address] [place] [address], [address] [place] [address] Vancomycin [Mass/Vol]on 53-06-9886NFLIKVQAPI99.3 ug/mLNormal5.0-40.0ProAkron Children'S HospitalComment on above:Result Comment: Peak 30-40 ug/mLTrough 5-20 ug/ml Performed By: #### 70198-1 ####[facility] ([id number])[address] [place] [address], [address] [place] [address]644QZ ABDOMEN AP 1 VWon 95-78-3584FD ABDOMEN AP 1 VWNormalProMercy Health – The [facility] AND AUTO DIFFon 87-28-3274XONNUBIH BASOPHIL0.1 X10E9/LNormal0.0-0.2 ProMedicSonoma [facility] HospitalComment on above:Performed By: #### 55487-0, EBONY, MARVA, 75199-1 ####[facility] ([id number])[address] [place] [address]NYANEZNO NEUTROPHIL5.8 X10E9/LNormal1.5-6.6ProMethod[facility]aCompontiac [facility] hospital on above:Performed By: ###Carolyn 50201-9, EBONY, MARVA, 28313-5 ####[facility] ([id number])[address] [place] [address] 09776Fdglhjmhg/100 WBC (Bld)1.4 %NormalGuernsey Memorial HospitalComment on above:Performed By: #### 19265-7, CMP, CBCA, ####[facility] ([id number])[address] [place] [address] 53757Qrcxjnrwhsp (Bld) [#/Vol]0.3 10*3/uLNormal0.0-0.4[facility] HospitalComment on above:Performed By: #### 64345-3, CMP, CBCA, ####[facility] ([id number])[address] [place] [address] 15588Tqwojkijxra/100 WBC (Bld)3.3 %NormalProMethodist Hospital AtascosaComment on above:Performed By: #### 71005-2, CMP, CBCA, ####[facility] ([id number])[address] [place] [address] 02167Kcwyyuhbuhf distribution width (RBC) [Ratio]18.0 %High 11.5-15.0[facility] Memorial HospitalComment on above:Performed By: #### 32381-5, CMP, CBCA, ####[facility] ([id number])[address] [place] [address] 70925Mjfklnpwbv (Bld) [Volume fraction]22.0 %Low 39-49ProMethodist Hospital AtascosaComment on above:Performed By: #### 88626-6, CMP, CBCA, ####[facility] ([id number])[address] [place] [address] 54791Alatufgtkc (Bld) [Mass/Vol]7.5 g/dLLow13.0-17.0 [facility] Memorial HospitalComment on above:Performed By: #### 94401-4, CMP, CBCA, ####[facility] ([id number])[address] [place] [address] 13797Mwaldfqkavo (Bld) [#/Vol]1.9 10*3/uLNormal1.0-3.5 [facility] HospitalComment on above:Performed By: #### 02488-3, CMP, CBCA, ####[facility] ([id number])[address] [place] [address] 81210Deynaicbgue/100 WBC (Bld)20.9 %NormalProMethodist Hospital AtascosaComment on above:Performed By: #### 08394-9, CMP, CBCA, ####[facility] ([id number])[address] [place] [address] 63449OZI (RBC) [Entitic mass]34.9 ceJvnn69-28SftRnvvbhGuernsey Memorial HospitalComment on above:Performed By: #### 81687-6, CMP, CBCA, ####[facility] ([id number])[address] [place] [address] 11774DCCF (RBC) [Mass/Vol]34.3 g/vSIgoudg07-39JkbVfuvqoGuernsey Memorial HospitalComment on above:Performed By: #### 44011-9, CMP, CBCA, ####[facility] ([id number])[address] [place] [address] 60500LZX (RBC) [Entitic vol]102 rIFmkt40-651YatCgscupGuernsey Memorial HospitalComment on above:Performed By: #### 56307-9, CMP, CBCA, ####[facility] ([id number])[address] [place] [address] 27086Sfwecongu (Bld) [#/Vol]0.8 10*3/uLNormal0-0.9[facility] Memorial HospitalComment on above:Performed By: #### 99726-6, CMP, CBCA, ####[facility] ([id number])[address] [place] [address] 69215Lywhbctak/100 WBC (Bld)9.1 %NormalGuernsey Memorial HospitalComment on above:Performed By: #### 39994-7, CMP, CBCA, 94253-8 ####[facility] ([id number])[address] [place] [address] 73413Kpyeisrsmtw/100 WBC (Bld)65.3 %NormalGuernsey Memorial HospitalComment on above:Performed By: #### 30080-0, CMP, CBCA, ####[facility] ([id number])[address] [place] [address] 59440Uacoivwj mean volume (Bld) [Entitic vol]10.2 fLNormal7-12 Guernsey Memorial HospitalComment on above:Performed By: #### 67036-0, CMP, CBCA, ####[facility] ([id number])[address] [place] [address] 90048Wlqxphrjj (Bld) [#/Vol]125 10*3/nVFpj081-200 [facility]ernsey Memorial HospitalComment on above:Performed By: #### 55927-4, CMP, CBCA, 02621-5 ####[facility] ([id number])[address] [place] [address] 61798JUF COUNT2.16 X10E12/LLow4.10-5.70Guernsey Memorial HospitalComment on above:Performed By: #### 39325-5, CMP, CBCA, ####[facility] ([id number])[address] [place] [address] 78897WEP (Bld) [#/Vol]8.9 10*3/uLNormal4.0-11.0ProMethodist Hospital AtascosaComment on above:Performed By: #### 10885-8, CMP, CBCA, 52518-6 ####[facility] ([id number])[address] [place] [address] 50845BRMBJWZGMNEDV METABOLIC PANELon 14-00-2660Qykyihj [Mass/Vol]2.0 g/dLLow3.2-5.3Pro[facility] Jr. Cancer HospitalComment on above:Performed By: #### 53296-6, CMP, CBCA, 66177-0 ####[facility] ([id number])[address] [place] [address] 19826JFX [Catalytic activity/Vol]89 U/UTmikmy95-859GyjDipuvxMethodist Hospital AtascosaComment on above: Performed By: #### 62657-1, CMP, CBCA, ####[facility] ([id number])[address] [place] [address] 51377YCP [Catalytic activity/Vol]8 U/LNormal0-40ProMethodist Hospital AtascosaComment on above:Performed By: #### 00877-6, CMP, CBCA, ####[facility] ([id number])[address] [place] [address] 63787Dfqfm gap [Moles/Vol]5 mmol/LNormal5-15ProMethodist Hospital AtascosaComment on above: Performed By: #### 77889-9, CMP, CBCA, 77709-1 ####[facility] ([id number])[address] [place] [address] 14556ARN [Catalytic activity/Vol]15 U/LNormal0-41ProMethodist Hospital AtascosaComment on above: Performed By: #### 12150-3, CMP, CBCA, 35194-4 ####[facility] ([id number])[address] [place] [address] 20429Zvxoakmpn [Mass/Vol]0.5 mg/dLNormal0.3-1.2PSt. Vincent HospitalComment on above: Performed By: #### 51102-6, CMP, CBCA, ####[facility] ([id number])[address] [place] [address], [place] [address]Vjdezyg [Mass/Vol]8.4 mg/dLLow8.5-10.5PSt. Vincent HospitalComment on above: Performed By: #### 08864-2, CMP, CBCA, ####[facility] ([id number])[address] [place] [address] 02103Uzlqmqqs [Moles/Vol]115 mmol/DYskj96-865EezShgxyrMethodist Hospital AtascosaComment on above: Performed By: #### 50880-4, CMP, CBCA, ####[facility] ([id number])[address] [place] [address] 77349AD9 [Moles/Vol]19 mmol/YKew99-68ShjOlmezgSt. Vincent HospitalComment on above:Performed By: #### 43937-3, CMP, CBCA, ####[facility] ([id number])[address] [place] [address] 60602Yaqkhfpcnr [Mass/Vol]1.37 mg/dLHigh 0.70-1.20ProMethodist Hospital AtascosaComment on above:Result Comment: METHOD TRACEABLE TO IDMS STANDARDPerformed By: #### 34713-8, CMP, CBCA, ####[facility] ([id number])[address] [place] [address] 45212AUM/1.73 sq M.predicted among non-blacks MDRD (S/P/Bld) [Vol rate/Area]53 mL/min/{1.73_m2}Low>59ProMethodist Hospital AtascosaComment on above:Result Comment: Reported eGFR is based on theCKD-EPI 2020 equation that doesnot use a race coefficient.Performed By: #### 32254-8, EBONY, MARVA, ####[facility] ([id number])[address] [place] [address] 04168Lwhenhp [Mass/Vol]98 mg/bEPlckfg52-39BojEyznpeMethodist Hospital AtascosaComment on above:Performed By: #### 73425-7, MARVA BECK, ####[facility] ([id number])[address] [place] [address] 43373Cbacgjatp [Moles/Vol]4.4 mmol/LNormal3.5-5.0ProMethodist Hospital AtascosaComment on above:Performed By: #### 86499-2, MARVA BEKC, ####[facility] ([id number])[address] [place] [address] 20178Pudvwud [Mass/Vol]5.7 g/dLLow6.0-8.0ProMethodist Hospital AtascosaComment on above:Performed By: #### 52933-9, EBONY, MARVA, ####[facility] ([id number])[address] [place] [address] 53450Ypdcrc [Moles/Vol]139 mmol/PYsdcwt908-860TtkFajhvu Fremont HospitalComment on above:Performed By: #### 95771-1, EBONY, MARVA, ####[facility] ([id number])[address] [place] [address] [place] [address]Nmrz nitrogen [Mass/Vol]14 mg/dLNormal5-27ProMethodist Hospital AtascosaComment on above:Performed By: #### 66946-5, EBONY, MARVA, ####[facility] ([id number])[address] [place] [address] 94656Wwjcyzj Glucometer (BldC) [Mass/Vol]on 63-98-3850Zbetnoj [Mass/Vol]132 mg/wSRwzz14-49RbdCceevhMethodist Hospital AtascosaGlucose [Mass/Vol]108 mg/eOPdlf00-04BufBffoyvMethodist Hospital AtascosaGlucose [Mass/Vol]94 mg/jDFaydvi68-72 [facility] Cancer HospitalMAGNESIUMon 21-91-9113Xuffonsqt [Mass/Vol]2.1 mg/dL Normal1.8-2.6ProMethodist Hospital AtascosaComment on above:Performed By: #### 22350-5, CMP, CBCA, 16983-5 ####[facility] ([id number])[address] [place] [address] 66344Aenvtrmmxy [Mass/Vol]on 05-10-2024 ROXECWYUNV17.6 ug/mLNormal5.0-40.0ProMethodist Hospital AtascosaComment on above: Result Comment: Peak 30-40 ug/mLTrough 5-20 ug/ml Performed By: #### 54770-2, CMP, CBCA, 02154-1 ####[facility] ([id number])[address] [place] [address] 69319NUYXX CULTUREon 44-92-4934Yeldlwci identified Aer cx Nom (Bld)SPECIMEN NOTES R AC 10ML CULTURE RESULTS NO GROWTH 5 DAYSNoKettering Health – Soin Medical CenterComment on above:Performed By: #### 04174-7 ####[facility] ([id number])[address] [place] [address] 50301Lfwraedy identified Aer cx Nom (Bld)SPECIMEN NOTES R AC 10ML CULTURE RESULTS NO GROWTH 5 DAYSNoKettering Health – Soin Medical CenterComment on above:Performed By: #### 42168-4 ####[facility] ([id number])[address] [place] [address] 34517SKV AND AUTO DIFFon 74-57-7216EHBFVIUK BASOPHIL0.1 X10E9/LNormal0.0-0.2Pro[facility]. Cancer HospitalComment on above:Performed By: #### 2276-4, 61581-9, 8, FEPR, 2131-10 ####[facility] ([id number])[address] [facility], [address] [place] [address] 38347#### CBCA, CMP, 96421-7 ####[facility] ([id number])[address] [place] [address] 96338LXGDATTN NEUTROPHIL5.9 X10E9/LNormal1.5-6.6ProMethodist Hospital AtascosaComment on above:Performed By: #### 2276-4, 36893-1, 2283-09, FEPR, 2131-10 ####[facility] ([id number])[address] [facility], [address] [place] [address] 04899#### CBCA, CMP, 74662-2 ####[facility] ([id number])[address] [place] [address] 38032Pndcokajc/100 WBC (Bld)1.1 %NormalProMethodist Hospital AtascosaComment on above:Performed By: #### 2276-4, 64452-3, 2283-09, FEPR, 2131-10 ####[facility] ([id number])[address] [facility], [address] [place] [address] 72267#### CBCA, CMP, 15045-6 ####[facility] ([id number])[address] [place] [address] 92251Fsjjpvbpxqf (Bld) [#/Vol]0.3 10*3/uLNormal0.0-0.4ProMethodist Hospital AtascosaComment on above:Performed By: #### 2276-4, 26312-1, 228-8, FEPR, 2131-10 ####[facility] ([id number])[address], [address] [place] [address] 89315#### CBCA, CMP, ####[facility] ([id number])[address] [place] [address] 64401Wfpjwggtweq/100 WBC (Bld)3.2 %NormalProMethodist Hospital AtascosaComment on above:Performed By: #### 2276-4, 54400-2, 2283-8, FEPR, 2131-10 ####[facility] ([id number])[address], [address] [place] [address] 62573#### CBCA, CMP, ####[facility] ([id number])[address] [place] [address] 43185Kvcfddcpcyl distribution width (RBC) [Ratio]18.2 %High 11.5-15.0Guernsey Memorial HospitalComment on above:Performed By: #### 2276-4, 91597-7, 2283-8, FEPR, 2131-10 ####[facility] ([id number])[address], [address] [place] [address] 45461#### CBCA, CMP, ####[facility] ([id number])[address] [place] [address] 38693 Hematocrit (Bld) [Volume fraction]22.3 %Hxn11-27DcwUchakpGuernsey Memorial Hospital Comment on above:Performed By: #### 2276-4, 77513-6, 2283-8, FEPR, 2131-10 ####[facility] ([id number])[address], [address] [place] [address] 52810#### CBCA, CMP, ####[facility] ([id number])[address] [place], [place] [address]Zeudobrqlu (Bld) [Mass/Vol]7.7 g/dLLow 13.0-17.0ProMethodist Hospital AtascosaComment on above:Performed By: #### 2276-4, 50508-8, 228-8, FEPR, 2131-10 ####[facility] ([id number])[address] [facility], [address] [place] [address] 62902#### CBCA, CMP, 56331-8 ####[facility] ([id number])[address] [place] [address] 90962 Lymphocytes (Bld) [#/Vol]1.7 10*3/uLNormal1.0-3.5PSt. Vincent Hospital Comment on above:Performed By: #### 2276-4, 42176-9, 8, FEPR, 2131-10 ####[facility] ([id number])[address] [facility], [address] [address]#### CBCA, CMP, 21823-1 ####[facility] ([id number])[address] [place] [address] 25550Jxbxouhtqwx/100 WBC (Bld)19.5 % NormalProMethodist Hospital AtascosaComment on above:Performed By: #### 2276-4, 88074-9, 2283-8, FEPR, 2131-10 ####[facility] ([id number])[address] [facility], [address] [place] [address] 87929#### CBCA, CMP, 09314-1 ####[facility] ([id number])[address] [place] [address] 69688ZAC (RBC) [Entitic mass]34.7 tdPwfp36-60NdaKtksjfMethodist Hospital AtascosaComment on above: Performed By: #### 2276-4, 93479-5, 228-8, FEPR, 2131-10 ####[facility] ([id number])[address], [address] [place] [address] 69980#### CBCA, CMP, ####[facility] ([id number])[address] [place] [address] 14524TTUF (RBC) [Mass/Vol]34.3 g/pJCgaiyg42-84YycCdudbzMethodist Hospital AtascosaComment on above:Performed By: #### 2276-4, 00226-5, 228-8, FEPR, 2131-10 ####[facility] ([id number])[address], [address] [place] [address] 84809#### CBCA, CMP, ####[facility] ([id number])[address] [place] [address] 13166VAF (RBC) [Entitic vol]101 lYCbrm39-438PwbOtgwedMethodist Hospital AtascosaComment on above:Performed By: #### 2276-4, 90205-5, 2283-8, FEPR, 2131-10 ####[facility] ([id number])[address], [address] [place] [address] 08395#### CBCA, CMP, ####[facility] ([id number])[address] [place] [address] 59871Knerftlbn (Bld) [#/Vol]0.8 10*3/uLNormal0-0.9ProMethodist Hospital AtascosaComment on above:Performed By: #### 2276-4, 34651-5, 2283-8, FEPR, 2131-10 ####[facility] ([id number])[address], [address] [place] [address] 66240#### CBCA, CMP, ####[facility] ([id number])[address] [place] [address] 58975Zosaiddji/100 WBC (Bld)9.2 %NormalProMethodist Hospital AtascosaComment on above:Performed By: #### 2276-4, 00809-9, 2283-8, FEPR, 2131-10 ####[facility] ([id number])[address], [address] [place] [address] 50260#### CBCA, CMP, 87333-5 ####[facility] ([id number])[address] [place] [address] 21155Lkbmrmkskxr/100 WBC (Bld)67.0 %NormalProMethodist Hospital AtascosaComment on above:Performed By: #### 2276-4, 79301-0, 2283-8, FEPR, ####[facility] ([id number])[address], [address] [place] [address] 71303#### CBCA, CMP, ####[facility] ([id number])[address] [place] [address] 83443Uuuyvina mean volume (Bld) [Entitic vol]9.8 fLNormal7-12[facility]. Cancer HospitalComment on above: Performed By: #### 2276-4, 16811-4, 2283-8, FEPR, 2131-10 ####[facility] ([id number])[address], [address] [place] [address] 49711#### CBCA, CMP, ####[facility] ([id number])[address] [place] [address] 97966Dvbvcutyw (Bld) [#/Vol]141 10*3/fKOqt477-916SbwZjlqdtMethodist Hospital AtascosaComment on above:Performed By: #### 2276-4, 60338-7, 2283-8, FEPR, 2131-10 ####[facility] ([id number])[address], [address] [place] [address] 24760#### CBCA, CMP, 59077-2 ####[facility] ([id number])[address] [place] [address] 48661QED COUNT2.21 X10E12/LLow4.10-5.70ProMethodist Hospital AtascosaComment on above:Performed By: #### 2276-4, 89472-4, 2283-8, FEPR, 2131-10 ####[facility] ([id number])[address] [facility], [address] [place] [address] 84987#### CBCA, CMP, ####[facility] ([id number])[address] [place] [address] 64259IVE (Bld) [#/Vol]8.7 10*3/uLNormal4.0-11.0ProMethodist Hospital AtascosaComment on above:Performed By: #### 2276-4, 14323-3, 2283-8, FEPR, 2131-10 ####[facility] ([id number])[address] [facility], [address] [place] [address] 61484#### CBCA, CMP, ####[facility] ([id number])[address] [place] [address] 66559KMUQMMBSNDLRC METABOLIC PANELon 98-57-7376Kqyfpyx [Mass/Vol]2.0 g/dLLow3.2-5.3[facility]. Cancer HospitalComment on above:Performed By: #### 2276-4, 99146-2, 2283-8, FEPR, 2131-10 ####[facility] ([id number])[address], [address] [place] [address] 02414#### CBCA, CMP, ####[facility] ([id number])[address] [place] [address] 87085JUW [Catalytic activity/Vol]85 U/TSmudkq10-061XbzYtqfdrMethodist Hospital AtascosaComment on above: Performed By: #### 2276-4, 77566-7, 2283-8, FEPR, 2131-10 ####[facility] ([id number])[address], [address] [place] [address] 29279#### CBCA, CMP, 93565-0 ####[facility] ([id number])[address] [place] [address] 11226UWT [Catalytic activity/Vol]9 U/LNormal0-40ProMethodist Hospital AtascosaComment on above:Performed By: #### 2276-4, 66399-8, 8, FEPR, 2131-10 ####[facility] ([id number])[address], [address] [place] [address] 46666#### MARVA, CMP, 67658-8 ####[facility] ([id number])[address] [place] [address] 33277Plxya gap [Moles/Vol]0 mmol/LLow5-15ProMethodist Hospital AtascosaComment on above:Performed By: #### 2276-4, 41673-5, 2283-8, FEPR, 2131-10 ####[facility] ([id number])[address], [address] [place] [address] 61307#### CBCA, CMP, 27237-8 ####[facility] ([id number])[address] [place] [address] 43154KML [Catalytic activity/Vol]15 U/LNormal0-41ProMethodist Hospital AtascosaComment on above:Performed By: #### 2276-4, 26210-7, 2283-8, FEPR, 2131-10 ####[facility] ([id number])[address], [address] [place] [address] 17731#### MARVA, CMP, 57944-1 ####[facility] ([id number])[address] [place] [address] 82477Fttknjjaa [Mass/Vol] 0.5 mg/dLNormal0.3-1.2PSt. Vincent HospitalComment on above:Performed By: #### 2276-4, 53639-2, 2283-8, FEPR, 2131-10 ####[facility] ([id number])[address], [address] [place] [address] 08660#### MARVA, CMP, ####[facility] ([id number])[address] [place] [address] 71611Wqxyojw [Mass/Vol]8.2 mg/dLLow8.5-10.5PSt. Vincent HospitalComment on above:Performed By: #### 2276-4, 56935-1, 2283-8, FEPR, ####[facility] ([id number])[address], [address] [place] [address] 17671#### MARVA, CMP, 26659-3 ####[facility] ([id number])[address] [place] [address] 18706Bdmihafi [Moles/Vol]116 mmol/L Hcrp09-788KadCufgnd U[facility] Norris Jr. Cancer HospitalComment on above:Performed By: #### 2276-4, 06862-4, 2283-8, FEPR, 2131-10 ####[facility] ([id number])[address], [address] [place] [address] 86141#### CBCRachel, CMP, ####[facility] ([id number])[address] [place] [address] 95228ZG0 [Moles/Vol]20 mmol/XTez94-68OuwSjuyphSt. Vincent HospitalComment on above:Performed By: #### 2276-4, 85717-1, 2283-8, FEPR, 2131-10 ####[facility] ([id number])[address] [place] [address] 26259#### EBONY DURHAM, 23362-5 ####[facility] ([id number])[address] [place] [address] 34143Mzhmewyekl [Mass/Vol]1.42 mg/dLHigh0.70-1.20ProMethodist Hospital AtascosaComment on above:Result Comment: METHOD TRACEABLE TO IDMS STANDARDPerformed By: #### 2276-4, 62523-1, 2283-09, FEPR, 2131-10 ####[facility] ([id number])[address] [place] [address] 42754#### EBONY DURHAM, ####[facility] ([id number])[address] [place] [address] 38627FEF/1.73 sq M.predicted among non-blacks MDRD (S/P/Bld) [Vol rate/Area]51 mL/min/{1.73_m2}Low>59ProMethodist Hospital AtascosaComment on above:Result Comment: Reported eGFR is based on theCKD-EPI 2020 equation that doesnot use a race coefficient.Performed By: #### 2276-4, 52629-0, 8, FEPR, 2131-10 ####[facility] ([id number])[address] [address]#### MARVA, EBONY, ####[facility] ([id number])[address] [place] [address] 81987Msaxznu [Mass/Vol]102 mg/fFFkkf20-57ShjJafcsaMethodist Hospital AtascosaComment on above:Performed By: #### 2276-4, 86726-7, 2284-8, FEPR, 2131-10 ####[facility] ([id number])[address] [address]#### CBCA, CMP, 19676-5 ####[facility] ([id number])[address] [place] [address] 77649Tbkhiqmfc [Moles/Vol]4.3 mmol/LNormal3.5-5.0ProMethodist Hospital AtascosaComment on above:Performed By: #### 2276-4, 33329-1, 2283-8, FEPR, 2131-10 ####[facility] ([id number])[address], [address] [place] [address] 36995#### CBCA, CMP, 08442-3 ####[facility] ([id number])[address] [place] [address] 57082Vrygmpt [Mass/Vol] 5.9 g/dLLow6.0-8.0ProMethodist Hospital AtascosaComment on above:Performed By: #### 2276-4, 46655-3, 2283-8, FEPR, 2131-10 ####[facility] ([id number])[address], [address] [place] [address] 05069#### CBCA, CMP, ####[facility] ([id number])[address] [place] [address] 68450Fqsfmv [Moles/Vol]136 mmol/QCvukxo975-483JpdSyqjbz [facility] HospitalComment on above:Performed By: #### 2276-4, 26679-9, 2283-8, FEPR, 2131-10 ####[facility] ([id number])[address], [address] [place] [address]#### CBCA, CMP, ####[facility] ([id number])[address] [place] [address] 54692Izih nitrogen [Mass/Vol]15 mg/dLNormal5-27[facility] HospitalComment on above:Performed By: #### 2276-4, 99186-7, 2283-8, FEPR, 2131-10 ####[facility] ([id number])[address] [facility], [address] [place] [address]#### CBCA, CMP, ####[facility] ([id number])[address] [place] [address] 87817OQCSB OCCULT BLOODon 63-33-2890Lynjymaroq.gastrointestinal Ql (Stl)NegativeNormalNEGProMethodist Hospital AtascosaComment on above:Performed By: #### 2335-8 ####[facility] ([id number])[address] [place] [address] 29683ICNVQAAEkx 56-24-3218Saodjwzt [Mass/Vol]488 ng/mL Jtds34-950VccSinkfrMethodist Hospital AtascosaComment on above:Performed By: #### 2276-4, 34009-8, 8, FEPR, 2131-10 ####[facility] ([id number])[address] [facility], [address] [place] [address]#### CBCA, CMP, ####[facility] ([id number])[address] [place] [address] 45070Hemead [Mass/Vol]on 17-99-5985FOLEX ACID5.8 ng/mLLow>5.8[facility] Comment on above:Result Comment: NEW REFERENCE RANGEPerformed By: #### 2276-4, 79462-7, 2283-8, FEPR, 2131-10 ####[facility] ([id number])[address] [facility], [address] [place] [address]#### CBCA, CMP, ####[facility] ([id number])[address] [place] [address] 37128IQ PANELon 99-64-5090Cummktjjkohtlfhe pathogens DNA and RNA panel ARSENIO+non-probe (Stl)NormalNDETGuernsey Memorial HospitalComment on above:Performed By: #### 87671-4 ####[facility] ([id number])[address] [place] [address] 38285EOQIHLAULTMAN ORRVILLE HOSPITAL LAB ([id number])[address] [facility], [address] [place] [address] 05403Wskfigl Glucometer (BldC) [Mass/Vol]on 05-09-2024 Glucose [Mass/Vol]126 mg/zJMhiq43-45ChhSswmukGuernsey Memorial HospitalGlucose [Mass/Vol] 99 mg/bUTrlssa31-15PxsSmibfxGuernsey Memorial HospitalGlucose [Mass/Vol]95 mg/dLNormal 65-99Guernsey Memorial HospitalHGBon 81-27-5479Enfycrlbcf (Bld) [Volume fraction]19.8 %Qkz68-85PuvCnayhkGuernsey Memorial HospitalComment on above:Performed By: #### HH ####[facility] ([id number])[address] [place] [address] 06044Rtoxdcbugf (Bld) [Mass/Vol]6.6 g/dLCritically low13.0-17.0 [facility] HospitalComment on above:Performed By: #### HH ####[facility] ([id number])[address] [place] [address] 86766WAIK PROFILEon 28-78-8710Eokq [Mass/Vol]84 ug/bEIytsoj86-252HjgXvlxhrGuernsey Memorial HospitalComment on above:Performed By: #### 2276-4, 07894-8, 2284-8, FEPR, 2132-9 ####[facility] ([id number])[address] [facility], [address] [place] [address] 36487#### CBCA, CMP, ####[facility] ([id number])[address] [place] [address] 77557HHDD MHHBDGF356 ug/mYJwa058-653IrtLnslbnMethodist Hospital AtascosaComment on above:Performed By: #### 2276-4, 17296-3, 8, FEPR, 2131-10 ####[facility] ([id number])[address] [facility], [address] [address]#### MARVA, CMP, ####[facility] ([id number])[address] [place] [address] 13764OKZW DTVSFKLSRW05 % GMKMVHYVJGZtuipm12-44YxdIbfgvv [facility]remont HospitalComment on above:Performed By: #### 6-4, 78218-9, 2283-09, FEPR, 2131-10 ####[facility] ([id number])[address] [facility], [address] [address]#### MARVA, CMP, ####[facility] ([id number])[address] [place] [address] 53858WVDZQKBDHlh 79-94-6692Hvqgmieql [Mass/Vol]2.7 mg/dLHigh1.8-2.6[facility] Comment on above:Performed By: #### 70571-2 ####[facility] ([id number])[address] [place] [address] 30019Soinqzkwi [Mass/Vol]1.6 mg/dLLow1.8-2.6ProMethodist Hospital AtascosaComment on above: Performed By: #### 2276-4, 87914-5, 8, FEPR, 2131-10 ####[facility] ([id number])[address], [address], [place] [address]#### CBCA, CMP, ####[facility] ([id number])[address] [place], [place] [address]RHQZ PCR NASALon 99-66-5435TNST DNA ARSENIO+probe Ql (Unsp spec)NegativeNormalNEGProMethodist Hospital AtascosaComment on above:Performed By: #### 94781-8 ####[facility] ([id number])[address], [address] [place] [address] 20300NRVYN CULTUREon 98-64-8282Xxiqtlnh identified Cx Nom (U) CULTURE RESULTS 10-50,000 ORGANISMS/mL NORMAL UROGENITAL FLORANormalProMethodist Hospital [facility] Comment on above:Performed By: #### 630-4 ####[facility] ([id number])[address], [address] [place] [address] 90459UODBRYR B12on 05-09-2024 Cobalamin (Vitamin B12) [Mass/Vol]282 pg/eUQtdxqt284-693YniIkbgdw [facility] Cancer HospitalComment on above:Performed By: #### 2276-4, 41778-8, 2284-8, FEPR, ####[facility] ([id number])[address], [address] [place] [address] 56394#### CBCA, CMP, ####[facility] ([id number])[address] [place], [place] [address]Eztxpsf D+Metabolites [Mass/Vol] on 98-74-5035ONYLCLM D 25 HYD TOT20.7 ng/bWCyo85-128ChcEmhkdxGuernsey Memorial Hospital Comment on above:Result Comment: Vitamin D status 25 [place] Vitamin D Deficiency <20 ng/mLInsufficiency 20-29 ng/mLSufficiency 30-100 ng/mLToxicity >100 ng/mLNOTE: A pediatric reference range has not beenestablished by the machine tool electrician of this kit.The [place] [employer] recommendsa Vitamin D level of = or >20ng/mL in infantsand children.Performed By: #### 2276-4, 52089-3, 2284-8, FEPR, 2131-10 ####[facility] ([id number])[address] [place] [address], [address], [place] [address]#### CBCA, [facility], ####[facility] ([id number])[address] [place] [address] 41271HV CHEST 1 VWon 66-99-6509NB CHEST 1 VWNormalProCook [facility]'s [facility] AND AUTO DIFFon 94-73-6545JBMRIPKO BASOPHIL0.1 X10E9/LNormal0.0-0.2ProMed[facility] Cancer HospitalComment on above: Performed By: #### EBONY, , CBCA ####[facility] ([id number])[address] [place] [address] 52675YNTKVRSD NEUTROPHIL6.1 X10E9/LNormal1.5-6.6Guernsey Memorial HospitalComment on above: Performed By: #### EBONY, , CBCA ####[facility] ([id number])[address] [place] [address] 31574Kmckldwkm/100 WBC (Bld)0.7 %NormalProMethodist Hospital AtascosaComment on above:Performed By: #### EBONY, , CBCA ####[facility] ([id number])[address] [place] [address] 12872Npxmnquytuo (Bld) [#/Vol]0.3 10*3/uLNormal 0.0-0.4Guernsey Memorial HospitalComment on above:Performed By: #### EBONY, , CBCA ####[facility] ([id number])[address] [place] [address] 85580Bnfmwgawvuu/100 WBC (Bld)3.1 %NormalGuernsey Memorial HospitalComment on above:Performed By: #### EBONY, , CBCA ####[facility] ([id number])[address] [place] [address] 19462Jbamayuwluv distribution width (RBC) [Ratio]18.1 %High11.5-15.0Guernsey Memorial HospitalComment on above:Performed By: #### EBONY, , CBCA ####[facility] ([id number])[address] [place] [address] 37543Nuoicfruen (Bld) [Volume fraction]20.7 %Zox97-40LcdDrzwwdGuernsey Memorial HospitalComment on above:Performed By: #### EBONY, , CBCA ####[facility] ([id number])[address] [place] [address] 10067Ywxqnwyxsv (Bld) [Mass/Vol]7.0 g/dLLow13.0-17.0Gu[facility]sey Memorial HospitalComment on above:Performed By: #### EBONY, , CBCA ####[facility] ([id number])[address] [place] [address] 14121Hcligmhmdlu (Bld) [#/Vol]1.5 10*3/uLNormal1.0-3.5ProMedica [facility] Cancer HospitalComment on above:Performed By: #### CMP, , CBCA ####[facility] ([id number])[address] [place] [address] 86737Tntjcutebdp/100 WBC (Bld)17.2 %NormalGuernsey Memorial HospitalComment on above:Performed By: #### CMP, , CBCA ####[facility] ([id number])[address] [place] [address] 94726IRT (RBC) [Entitic mass]35.0 qaVzps03-22EhvVrivvkGuernsey Memorial HospitalComment on above:Performed By: #### EOBNY, , CBCA ####[facility] ([id number])[address] [place] [address] 83380ASPU (RBC) [Mass/Vol]34.0 g/pYZxjcnr33-19TnlGqmrckGuernsey Memorial HospitalComment on above: Performed By: #### EBONY, , CBCA ####[facility] ([id number])[address] [place] [address] 02183MUF (RBC) [Entitic vol]103 oORznr15-586IrzDycjmwGuernsey Memorial HospitalComment on above: Performed By: #### EBONY, , CBCA ####[facility] ([id number])[address] [place] [address] 12260Syysnewgb (Bld) [#/Vol]0.7 10*3/uLNormal0-0.9Guernsey Memorial HospitalComment on above: Performed By: #### EBONY, , CBCA ####[facility] ([id number])[address] [place] [address] 62501Kkswagawd/100 WBC (Bld)8.0 %NormalGuernsey Memorial HospitalCompontiac general hospital on above:Performed By: #### EBONY, , CBCA ####[facility] ([id number])[address] [place] [address] 67586Qpptlzpofxe/100 WBC (Bld)71.0 %Normal [facility] Memorial HospitalComment on above:Performed By: #### EBONY, , CBCA ####[facility] ([id number])[address] [place] [address] 12156Msesoxxh mean volume (Bld) [Entitic vol]10.1 fLNormal7-12 [facility] Lagrange HospitalComment on above:Performed By: #### EBONY, , CBCA ####[facility] ([id number])[address] [place] [address] 55594Zrmyzwnko (Bld) [#/Vol]155 10*3/fJKizoho311-170MieKetjae Fremont HospitalComment on above:Performed By: #### EBONY, , CBCA ####[facility] ([id number])[address] [place] [address] 24726HKL COUNT2.00 X10E12/LLow4.10-5.70Gu[facility]sey Memorial HospitalComment on above:Performed By: #### EBONY, , CBCA ####[facility] ([id number])[address] [place] [address] 54204FIM (Bld) [#/Vol]8.6 10*3/uLNormal4.0-11.0Gu[facility]sey Memorial HospitalComment on above:Performed By: #### EBONY, , CBCA ####[facility] ([id number])[address] [place] [address] 48247JHZLWKOROHFFJ METABOLIC PANELon 56-83-9265Ptayala [Mass/Vol]2.2 g/dLLow3.2-5.3PSt. Vincent HospitalCompontiac general hospital on above:Performed By: #### EBONY, , CBCA ####[facility] ([id number])[address] [place] [address] 11798VQK [Catalytic activity/Vol]80 U/NMqqwyu81-289PrpDowtrgMethodist Hospital AtascosaComment on above:Performed By: #### EBONY, , CBCA ####[facility] ([id number])[address] [place] [address] 59374DVK [Catalytic activity/Vol]7 U/LNormal0-40ProMethodist Hospital AtascosaComment on above:Performed By: #### EBONY, , CBCA ####[facility] ([id number])[address] [place] [address], [place] 0001[address]Uxbnk gap [Moles/Vol]5 mmol/LNormal5-15ProMethodist Hospital AtascosaComment on above:Performed By: #### EBONY, , CBCA ####[facility] ([id number])[address] [place] [address], [place] 37[address]YVM [Catalytic activity/Vol]17 U/LNormal0-41[facility] on above:Performed By: #### EBONY, , CBCA ####[facility] ([id number])[address] [place] [address], [place] [address] Bilirubin [Mass/Vol]0.6 mg/dLNormal0.3-1.2PSt. Vincent HospitalComment on above:Performed By: #### EBONY, , CBCA ####[facility] ([id number])[address] [place] [address], [place] [address]Pgezoax [Mass/Vol]8.8 mg/dLNormal8.5-10.5PSt. Vincent HospitalComment on above: Performed By: #### EBONY, , CBCA ####[facility] ([id number])[address] [place] [address], [place] [address]Nmdaurst [Moles/Vol]111 mmol/RKqkk72-644SygFwtuplMethodist Hospital AtascosaComment on above: Performed By: #### EBONY, , CBCA ####[facility] ([id number])[address] [place] [address], [place] [address]QN5 [Moles/Vol]21 mmol/FIix84-32VneSeiwffSt. Vincent HospitalComment on above:Performed By: #### EBONY, , CBCA ####[facility] ([id number])[address] [place] [address] 55303Epevpczymp [Mass/Vol]1.63 mg/dLHigh0.70-1.20 ProMLanterman Developmental CenterComment on above:Result Comment: METHOD TRACEABLE TO IDMS STANDARDPerformed By: #### EBONY, , CBCA ####[facility] ([id number])[address] [place] [address] 39821YWO/1.73 sq M.predicted among non-blacks MDRD (S/P/Bld) [Vol rate/Area]43 mL/min/{1.73_m2} Low>59ProMethodist Hospital AtascosaComment on above:Result Comment: Reported eGFR is based on theCKD-EPI 2020 equation that doesnot use a race coefficient. Performed By: #### EBONY, , CBCA ####[facility] ([id number])[address] [place] [address] 70854Wwlllou [Mass/Vol]105 mg/aJVbgu73-23YuxWhvndpMethodist Hospital AtascosaComment on above:Performed By: #### EBONY, , CBCA ####[facility] ([id number])[address] [place] [address] 17059Qhlvzyaqi [Moles/Vol]4.5 mmol/LNormal 3.5-5.0ProMethodist Hospital AtascosaComment on above:Performed By: #### EBONY, , CBCA ####[facility] ([id number])[address] [place] [address] 62018Hrkebyo [Mass/Vol]6.4 g/dLNormal6.0-8.0ProMethodist Hospital AtascosaComment on above:Performed By: #### EBONY, , CBCA ####[facility] ([id number])[address] [place] [address] 81153Ldfszr [Moles/Vol]137 mmol/JRnzkwp801-647LqfGaneib Fremont HospitalComment on above:Performed By: #### EBONY, , MARVA ####[facility] ([id number])[address] [place] [address] 26839Hamb nitrogen [Mass/Vol]19 mg/dLNormal5-27ProMethodist Hospital AtascosaComment on above:Performed By: #### EBONY, , MARVA ####[facility] ([id number])[address] [place] [address] 99307Nlbsxru Glucometer (BldC) [Mass/Vol]on 96-46-4823Rayieec [Mass/Vol]130 mg/oGHgxa83-87HfsSssfzmGuernsey Memorial HospitalGlucose [Mass/Vol]133 mg/eRObif84-63PyhPqdhcoMethodist Hospital AtascosaGlucose [Mass/Vol]126 mg/zFQdma44-25UhxHfvuhtGuernsey Memorial HospitalMAGNESIUMon 58-13-8287Aoaspjwpb [Mass/Vol]2.1 mg/dLNormal1.8-2.6Gu[facility]sey Memorial HospitalComment on above: Performed By: #### EBONY, , MARVA ####[facility] ([id number])[address] [place] [address] 20827YMT AND AUTO DIFF on 98-08-4588FLXRKUHO BASOPHIL0.0 X10E9/LNormal0.0-0.2PSt. Vincent Hospital Comment on above:Performed By: #### MARVA BECK, ####[facility] ([id number])[address] [place] [address] 88009EJHOUFKI NEUTROPHIL5.2 X10E9/LNormal1.5-6.6Gu[facility] Memorial HospitalComment on above: Performed By: #### MARVA BECK, ####[facility] ([id number])[address] [place] [address] 57701Jgregfjbp/100 WBC (Bld)0.4 %NormalGuernsey Memorial HospitalComment on above:Performed By: #### EBONY, CBCA, ####[facility] ([id number])[address] [place] [address] 03502Mzipcmipvuv (Bld) [#/Vol]0.2 10*3/uLNormal 0.0-0.4Gu[facility]sey Memorial HospitalComment on above:Performed By: #### EBONY, CBCA, ####[facility] ([id number])[address] [place] [address] 65885Ebhzwbxdefz/100 WBC (Bld)2.2 %NormalProMethodist Hospital AtascosaComment on above:Performed By: #### EBONY CBCA, ####[facility] ([id number])[address] [place] [address] 71168Qqvtjdwhgwp distribution width (RBC) [Ratio]18.1 %High11.5-15.0Guernsey Memorial HospitalComment on above:Performed By: #### EBONY, CBCA, ####[facility] ([id number])[address] [place] [address] 95601Wrtrhtqtab (Bld) [Volume fraction]20.6 %Lmv89-71KpbNqkarpMethodist Hospital AtascosaComment on above:Performed By: #### CMP, CBCA, ####[facility] ([id number])[address] [place] [address] 47160Lvrwjnyagz (Bld) [Mass/Vol]7.2 g/dLLow13.0-17.0Gu[facility] Memorial HospitalComment on above:Performed By: #### EBONY, CBCA, ####[facility] ([id number])[address] [place] [address], [place] [address]17[address]Pfoqyylqubj (Bld) [#/Vol]1.7 10*3/uLNormal1.0-3.5Pro[facility] Cancer HospitalComment on above:Performed By: #### CMP, CBCA, ####[facility] ([id number])[address] [place] [address] 76735Ycrwozxwvye/100 WBC (Bld)21.9 %NormalProMethodist Hospital AtascosaComment on above:Performed By: #### CMP, CBCA, ####[facility] ([id number])[address] [place] [address] 94645IVY (RBC) [Entitic mass]35.6 chRydx90-44VqeQabvygMethodist Hospital AtascosaComment on above:Performed By: #### EBONY, CBCA, ####[facility] ([id number])[address] [place] [address] 18266MHHM (RBC) [Mass/Vol]34.9 g/tMNsfokn59-72LjkSslfybMethodist Hospital AtascosaComment on above: Performed By: #### EBONY, CBCA, ####[facility] ([id number])[address] [place] [address] 40082KHJ (RBC) [Entitic vol]102 eBEsfm67-949SicUkjwwiMethodist Hospital AtascosaComment on above: Performed By: #### CMP, CBCA, ####[facility] ([id number])[address] [place] [address] 05674Mlzdtmkgf (Bld) [#/Vol]0.8 10*3/uLNormal0-0.9Gu[facility] Memorial HospitalComment on above: Performed By: #### CMP, CBCA, ####[facility] ([id number])[address] [place] [address] 19140Srnmffawn/100 WBC (Bld)9.8 %NormalGuernsey Memorial HospitalComment on above:Performed By: #### CMP, CBCA, ####[facility] ([id number])[address] [place] [address] 77004Sbdshtnwcvq/100 WBC (Bld)65.7 %Normal Gu[facility] Memorial HospitalComment on above:Performed By: #### CMP, CBCA, ####[facility] ([id number])[address] [place] [address] 92910Uwrrethl mean volume (Bld) [Entitic vol]9.7 fLNormal7-12 [facility] Memorial HospitalComment on above:Performed By: #### EBONY, CBCRachel, ####[facility] ([id number])[address] [place] [address] 99509Wxvwhcyxu (Bld) [#/Vol]166 10*3/cFWwuirv270-163SatEznshzGuernsey Memorial HospitalComment on above:Performed By: #### EBONY, CBCA, ####[facility] ([id number])[address] [place] [address] 48055LVB COUNT2.03 X10E12/LLow4.10-5.70Gu[facility] Memorial HospitalComment on above:Performed By: #### CMP, CBCA, ####[facility] ([id number])[address] [place] [address] 10480ZMN (Bld) [#/Vol]8.0 10*3/uLNormal4.0-11.0Gu[facility]sey Memorial HospitalComment on above:Performed By: #### CMP, CBCA, ####[facility] ([id number])[address] [place] [address] [place] 62[address]WDYLMWHMPPAHB METABOLIC PANELon 44-87-5314Upjohgh [Mass/Vol]2.3 g/dLLow3.2-5.3PSt. Vincent HospitalComment on above:Performed By: #### MARVA BECK, ####[facility] ([id number])[address] [place] [address], [place] 22956FCJ [Catalytic activity/Vol]87 U/FAjiuva46-363CzqTerxnoMethodist Hospital AtascosaComment on above:Performed By: #### MARVA BECK, ####[facility] ([id number])[address] [place] [address], [place] 14634XLZ [Catalytic activity/Vol]9 U/LNormal0-40ProMethodist Hospital AtascosaComment on above:Performed By: #### MARVA BECK, ####[facility] ([id number])[address] [place] [address], [place] 28087Hhnfp gap [Moles/Vol]4 mmol/LLow5-15ProMethodist Hospital AtascosaComment on above:Performed By: #### MARVA BECK, ####[facility] ([id number])[address] [place] [address], [place] 96285QKO [Catalytic activity/Vol]18 U/LNormal0-41[facility] Comment on above:Performed By: #### MARVA BECK, ####[facility] ([id number])[address] [place] [address], [place] [address] Bilirubin [Mass/Vol]0.6 mg/dLNormal0.3-1.2PSt. Vincent HospitalComment on above:Performed By: #### MARVA BECK, ####[facility] ([id number])[address] [place] [address], [place] 21608Cmvhkvx [Mass/Vol]8.4 mg/dLLow8.5-10.5PSt. Vincent HospitalComment on above: Performed By: #### MARVA BECK, 81749-6 ####[facility] ([id number])[address] [place] [address], [place] 649[address]Rnfxtetk [Moles/Vol]111 mmol/QTdpn47-027JlhEgolhuMethodist Hospital AtascosaComment on above: Performed By: #### MARVA BECK, ####[facility] ([id number])[address] [place] [address], [place] 50230CT3 [Moles/Vol]21 mmol/WDox14-58KuvSwyprpSt. Vincent HospitalComment on above:Performed By: #### MARVA BECK, ####[facility] ([id number])[address] [place] [address], [place] 16[address]Vztvrxvooh [Mass/Vol]2.10 mg/dLHigh0.70-1.20 ProMLanterman Developmental CenterComment on above:Result Comment: METHOD TRACEABLE TO IDMS STANDARDPerformed By: #### MARVA BECK, 46423-1 ####[facility] ([id number])[address] [place] [address], [place] 57310BPD/1.73 sq M.predicted among non-blacks MDRD (S/P/Bld) [Vol rate/Area]32 mL/min/{1.73_m2} Low>59ProMethodist Hospital AtascosaComment on above:Result Comment: Reported eGFR is based on theCKD-EPI 2020 equation that doesnot use a race coefficient. Performed By: #### MARVA BECK, 04339-8 ####[facility] ([id number])[address] [place] [address], [place] 46386Jgphnod [Mass/Vol]105 mg/cTXywd48-73VlhNnrpyrMethodist Hospital AtascosaComment on above:Performed By: #### MARVA BECK, ####[facility] ([id number])[address] [place] [address] 89487Tujidclyr [Moles/Vol]3.7 mmol/LNormal 3.5-5.0ProMethodist Hospital AtascosaComment on above:Performed By: #### MARVA BECK, ####[facility] ([id number])[address] [place] [address] 34735Eyewvbg [Mass/Vol]6.9 g/dLNormal6.0-8.0ProMethodist Hospital AtascosaComment on above:Performed By: #### MARVA BECK, ####[facility] ([id number])[address] [place] [address] 99671Rnibkx [Moles/Vol]136 mmol/WLbnlvm108-695PcfQvdaaw [facility] HospitalComment on above:Performed By: #### MARVA BECK, ####[facility] ([id number])[address] [place] [address] 46391Albb nitrogen [Mass/Vol]23 mg/dLNormal5-27ProMethodist Hospital AtascosaComment on above:Performed By: #### MARVA BECK, ####[facility] ([id number])[address] [place] [address] 84913XOPQ SCREEN, URINEon 05-07-2024 AMPHETAMINE/METHAMPNegativeNormalNEGGuernsey Memorial HospitalComment on above: Result Comment: AMPH/METH screening cut off = 1000 ng/mLPerformed By: #### DSU ####[facility] ([id number])[address] [place] [address] 83788RMAHDZAWASJPOchyvlfwGbzkpxTWLPiiMbmruo [facility] HospitalCompontiac general hospital on above:Result Comment: Barbiturates screening cut off value = 200 ng/mL Performed By: #### DSU ####[facility] ([id number])[address], [place] [address]XTSFMRWWTXMWDVSKrconmeeKhmiwrFMRDzjSysoki [facility] HospitalComment on above:Result Comment: Benzodiazepines screening cut off value = 200 ng/mLPerformed By: #### DSU ####[facility] ([id number])[address] [place] [address], [facility], [place] [address]SJAKSCYKKARF NegativeNormalNEGProMethodist Hospital AtascosaComment on above:Result Comment: Cannabinoids/THC screening cut off value = 50 ng/mLPerformed By: #### DSU ####[facility] ([id number])[address] [place] [address], [facility], [place] [address]FTFKRPI METABOLITENegativeCorpus ChristiNEGGuernsey Memorial Hospital Comment on above:Result Comment: Cocaine screening cut off value = 300 ng/mL Performed By: #### DSU ####[facility] ([id number])[address] [place] [address], [place] 10[address]NQXBKGIEoyxwqvgOfhfpdLULAyfZnmirx [facility] HospitalComment on above:Result Comment: Ecstasy screening cut off value = 500 ng/mLThis report is intended for use in clinicalmonitoring or management of patients.Performed By: #### DSU ####[facility] ([id number])[address] [place] [address], [facility], [place] [address]SGARDODFAZqlmbbfaBtddkhYET ProMbullock county hospitala [facility] Cancer HospitalComment on above:Result Comment: Methadone screening cut off value = 300 ng/mL.Performed By: #### DSU ####[facility] ([id number])[address] [place] [address], [facility], [place] [address]RJAFKGZAqzxbkio NormalNEGProMethodist Hospital AtascosaCompontiac general hospital on above:Result Comment: Opiates screening cut off value = 300 ng/mLNOTE:This test is used for the detection ofcodeine, hydrocodone (>1000 ng/mL), morphineand hydromorphone (>900 ng/mL) in urine.Performed By: #### DSU ####[facility] ([id number])[address] [place] [address] 11752OSLOYFRTHDnqixwhgKamuqnWYXZaqSbecuy [facility] HospitalComment on above:Result Comment: Oxycodone screening cut off value = 300 ng/mLNOTE:This test is used for the detection ofoxycodone and oxymorphone in urine.Performed By: #### DSU ####[facility] ([id number])[address] [place] [address] 09673HYBWAKOBLKMVH NegativeNormalNEGGuernsey Memorial HospitalComment on above:Result Comment: Phencyclidine screening cut off value = 25 ng/mLPerformed By: #### DSU ####[facility] ([id number])[address] [place] [address] 85308Epkpdrk Glucometer (BldC) [Mass/Vol]on 18-33-3186Bhrrfgs [Mass/Vol]134 mg/aJHyar82-02UuuTkqtymGuernsey Memorial HospitalGlucose [Mass/Vol]123 mg/yCTpga95-68IqzXnfqfxMethodist Hospital AtascosaGlucose [Mass/Vol]105 mg/qKDagz06-07 [facility] Cancer HospitalMAGNESIUMon 1948Hsgzwljjw [Mass/Vol]2.4 mg/dL Normal1.8-2.6ProMethodist Hospital AtascosaComment on above:Performed By: #### THYR, 29289-9 ####[facility] ([id number])[address] [place] [address] 60261Fdvhwmsgw [Mass/Vol]1.3 mg/dLLow1.8-2.6ProMethodist Hospital AtascosaComment on above:Performed By: #### CMP, CBCA, 89214-7 ####[facility] ([id number])[address] [place] [address] 31916IEQXTVYBIdb 48-95-2705Gmhugohow [Moles/Vol]3.1 mmol/LLow3.5-5.0ProMethodist Hospital AtascosaComment on above:Performed By: #### 2823-3 ####[facility] ([id number])[address] [place] [address], [place] [address]IQWWHAO PROFILEon 52-79-8399Azzo T4 [Mass/Vol]1.54 ng/dLNormal0.61-1.60ProMethodist Hospital AtascosaComment on above:Performed By: #### THYR, 27313-3 ####[facility] ([id number])[address] [place] [address], [place] [address]HHO9.25 uIU/mLNormal0.49-4.67ProMethodist Hospital AtascosaComment on above:Performed By: #### THYR, 96494-2 ####[facility] ([id number])[address] [place] [address], [place] [address]EXULF METABOLIC PANLon 45-36-8079Ovzsh gap [Moles/Vol]11 mmol/LNormal5-15ProMethodist Hospital AtascosaComment on above: Performed By: #### ANGLE, 39627-8 ####[facility] ([id number])[address] [place] [address], [place] [address]Xioqznm [Mass/Vol]8.5 mg/dLNormal 8.5-10.5PSt. Vincent HospitalComment on above:Performed By: #### ANGLE, 30630-8 ####[facility] ([id number])[address] [place] [address], [place] [address]Kskxkyaa [Moles/Vol]104 mmol/GMkkcae71-284JurJdeooyMethodist Hospital AtascosaComment on above:Performed By: #### ANGLE, 84962-3 ####[facility] ([id number])[address] [place] [address], [place] [address]FK2 [Moles/Vol]20 mmol/UZmz11-12BdkWwadwtKindred HospitalComment on above: Performed By: #### ANGLE, 35550-8 ####[facility] ([id number])[address] [place] [address], [place] [address]Aaujmpgjqa [Mass/Vol]2.42 mg/dL High0.70-1.20ProMethodist Hospital AtascosaComment on above:Result Comment: METHOD TRACEABLE TO IDMS STANDARDPerformed By: #### ANGLE, 81190-7 ####[facility] ([id number])[address] [place] [address], [place] [address]XWF/1.73 sq M.predicted among non-blacks MDRD (S/P/Bld) [Vol rate/Area]27 mL/min/{1.73_m2}Low>59ProMethodist Hospital AtascosaComment on above:Result Comment: Reported eGFR is based on theCKD-EPI 2020 equation that doesnot use a race coefficient.Performed By: #### ANGLE, 90274-2 ####[facility] ([id number])[address] [place] [address] 94558Yvnfdob [Mass/Vol]138 mg/cMUdqv79-51VjwHalvbqMethodist Hospital AtascosaComment on above:Performed By: #### ANGLE, 88872-0 ####[facility] ([id number])[address] [place] [address] 96859Nomtgttxg [Moles/Vol]2.7 mmol/LCritically low3.5-5.0ProMethodist Hospital AtascosaComment on above:Performed By: #### ANGLE, 51883-1 ####[facility] ([id number])[address] [place] [address], [place] [address]Knljat [Moles/Vol]135 mmol/SRwidev580-680WllJrbyhu Fremont HospitalComment on above:Performed By: #### ANGLE, 20838-7 ####[facility] ([id number])[address] [place] [address], [place] [address]Gyba nitrogen [Mass/Vol]27 mg/dLNormal5-27ProMethodist Hospital AtascosaComment on above: Performed By: #### BMP, 65026-2 ####[facility] ([id number])[address] [place] [address], [place] [address]Xxaby gap [Moles/Vol]15 mmol/L Normal5-15[facility] HospitalComment on above:Performed By: #### 99278-8, CBCA, BMP, 14112-1 ####[facility] ([id number])[address] [place] [address], [place] [address]Ypqfhyv [Mass/Vol]9.4 mg/dLNormal8.5-10.5 [facility] Cancer HospitalComment on above:Performed By: #### 93129-0, CBCA, BMP, 51762-4 ####[facility] ([id number])[address] [place] [address], [place] [address]Siwhkxky [Moles/Vol]97 mmol/BUnu38-909KwuKuorjzGuernsey Memorial HospitalComment on above:Performed By: #### 53830-5, CBCA, BMP, 62932-9 ####[facility] ([id number])[address] [place] [address], [place] [address]NV5 [Moles/Vol]20 mmol/UDei26-10XdoLxfqibSt. Vincent Hospital Comment on above:Performed By: #### 89139-7, CBCA, BMP, 70182-6 ####[facility] ([id number])[address] [place] [address], [place] [address]Zvppjrhwoh [Mass/Vol]2.69 mg/dLHigh0.70-1.20[facility] Comment on above:Result Comment: METHOD TRACEABLE TO IDMS STANDARDPerformed By: #### 07838-7, CBCA, BMP, 58784-2 ####[facility] ([id number])[address] [place] [address], [place] [address]MSI/1.73 sq M.predicted among non-blacks MDRD (S/P/Bld) [Vol rate/Area]24 mL/min/{1.73_m2}Low>59ProMethodist Hospital AtascosaComment on above:Result Comment: Reported eGFR is based on theCKD-EPI 2020 equation that doesnot use a race coefficient.Performed By: #### 21702-2, CBCA, BMP, 69264-0 ####[facility] ([id number])[address] [place] [address] 83503Ysiwkih [Mass/Vol]134 mg/nGFhmo36-53 [facility] HospitalComment on above:Performed By: #### 05461-8, CBCA, BMP, 18433-5 ####[facility] ([id number])[address] [place] [address] 49358Aeusaqpxz [Moles/Vol]2.6 mmol/LCritically low3.5-5.0 [facility] HospitalComment on above:Performed By: #### 75552-6, CBCA, BMP, 07092-8 ####[facility] ([id number])[address] [place] [address], [place] [address]Yhymep [Moles/Vol]132 mmol/QDwg638-183AnnDqbjokGuernsey Memorial HospitalComment on above:Performed By: #### 05266-8, CBCA, BMP, 89194-8 ####[facility] ([id number])[address] [place] [address] 95519Mgdo nitrogen [Mass/Vol]28 mg/dLHigh5-27[facility] HospitalComment on above:Performed By: #### 57450-4, CBCA, BMP, 64106-3 ####[facility] ([id number])[address] [place] [address] 47116BNDSP CULTUREon 90-63-0818Pllizsxd identified Aer cx Nom (Bld)SusceptibleProMethodist Hospital AtascosaComment on above:Performed By: #### 15781-5 ####[facility] ([id number])[address], [address], [place] [address]Ydmdclsw identified Aer cx Nom (Bld)SusceptibleProSelect Medical Specialty Hospital - Trumbull HospitalComment on above:Performed By: #### 74479-6 ####[facility] ([id number])[address], [address], [place] [address]ITR AND AUTO DIFFon 52-66-1747YUEGJGEE BASOPHIL0.1 X10E9/LNormal0.0-0.2[facility] Cancer HospitalComment on above:Performed By: #### 49307-7, CBCA, BMP, 99729-2 ####[facility] ([id number])[address] [place] [address] 64779Wrnl form neutrophils/100 WBC (Bld)1.0 %NormalProMethodist Hospital AtascosaComment on above:Performed By: #### 61221-1, CBCA, BMP, 69114-0 ####[facility] ([id number])[address] [place] [address] 37478Flzbgzqqx/100 WBC (Bld)1.0 %NormalGuernsey Memorial HospitalComment on above:Performed By: #### 91640-6, CBCA, BMP, 12002-9 ####[facility] ([id number])[address] [place] [address] 35576Ikdtmktgcix (Bld) [#/Vol]0.1 10*3/uLNormal0.0-0.4ProMethodist Hospital AtascosaComment on above:Performed By: #### 20685-3, CBCA, BMP, 89640-3 ####[facility] ([id number])[address] [place] [address] 75576Yhicwnnikpv/100 WBC (Bld)1.0 %NormalGuernsey Memorial HospitalComment on above:Performed By: #### 55760-6, CBCA, BMP, 85154-0 ####[facility] ([id number])[address] [place] [address] 83132Ojtoecvsvcm distribution width (RBC) [Ratio]17.4 %High 11.5-15.0Gu[facility] Memorial HospitalComment on above:Performed By: #### 31916-5, CBCA, BMP, 68325-5 ####[facility] ([id number])[address] [place] [address] 46974Jayollnoul (Bld) [Volume fraction]22.4 %Low 39-49ProMethodist Hospital AtascosaComment on above:Performed By: #### 28956-3, CBCA, BMP, 54564-0 ####[facility] ([id number])[address] [place] [address] 55272Dtjiiszpgy (Bld) [Mass/Vol]7.7 g/dLLow 13.0-17.0[facility] Memorial HospitalComment on above:Performed By: #### 95390-0, CBCA, BMP, 94469-4 ####[facility] ([id number])[address] [place] [address] 17645Ggjzpglqydq (Bld) [#/Vol]0.7 10*3/uLLow 1.0-3.5[facility] Cancer HospitalComment on above:Performed By: #### 31651-5, CBCA, BMP, 88879-2 ####[facility] ([id number])[address] [place] [address] 57244Zvkbsszwkay/100 WBC (Bld)5.7 %Normal Pro[facility]icSon[facility] Valley HospitalComment on above:Performed By: #### 71422-3, CBCA, BMP, 88400-4 ####[facility] ([id number])[address] [place] [address] 61412SHN (RBC) [Entitic mass]34.6 ilOdvx29-15NafXoyuzgMethodist Hospital AtascosaComment on above:Performed By: #### 91941-7, CBCA, BMP, 00717-6 ####[facility] ([id number])[address] [place] [address] 37271FGKF (RBC) [Mass/Vol]34.4 g/fSHgdnzf81-57OjxFnujajMethodist Hospital AtascosaComment on above:Performed By: #### 45914-3, CBCA, BMP, 58825-3 ####[facility] ([id number])[address] [place] [address] 35310MKM (RBC) [Entitic vol]101 lZCywv81-399IsnVstpylMethodist Hospital AtascosaComment on above:Performed By: #### 91270-1, CBCA, BMP, 08562-4 ####[facility] ([id number])[address] [place] [address] 44696Rbcieqxbs (Bld) [#/Vol]0.7 10*3/uLNormal0-0.9[facility] Memorial HospitalComment on above:Performed By: #### 43450-2, CBCA, BMP, 36840-0 ####[facility] ([id number])[address] [place] [address] 68754Uwnjrlasl/100 WBC (Bld)5.7 %NormalProMethodist Hospital AtascosaComment on above:Performed By: #### 68276-6, CBCA, BMP, 35486-1 ####[facility] ([id number])[address] [place] [address] 62641Ixsnwydwskw (Bld) [#/Vol]10.5 10*3/uLHigh1.5-6.6ProMethodist Hospital AtascosaComment on above:Performed By: #### 26115-6, CBCA, BMP, 22247-8 ####[facility] ([id number])[address] [place] [address] 64179Hkxtzfcg mean volume (Bld) [Entitic vol]9.9 fLNormal7-12 [facility] HospitalComment on above:Performed By: #### 45032-4, CBCA, BMP, 89512-4 ####[facility] ([id number])[address] [place] [address] 16750Wqqwcvlro (Bld) [#/Vol]199 10*3/dPLpoohe574-190 [facility] HospitalComment on above:Performed By: #### 07505-1, CBCA, BMP, 95324-7 ####[facility] ([id number])[address] [place] [address] 73003VEY COUNT2.23 X10E12/LLow4.10-5.70[facility] Memorial HospitalComment on above:Performed By: #### 53218-7, CBCA, BMP, 87774-3 ####[facility] ([id number])[address] [place] [address] 15517HAA BZTEDEBJAP81.6 %NormalGuernsey Memorial Hospital Comment on above:Performed By: #### 98432-0, CBCA, BMP, 61173-0 ####[facility] ([id number])[address] [place] [address] 95257WJR (Bld) [#/Vol]12.1 10*3/uLHigh4.0-11.0[facility] Memorial HospitalComment on above:Performed By: #### 66640-5, CBCA, BMP, 33747-6 ####[facility] ([id number])[address] [place] [address] 56552LR BRAIN WO CONTon 74-53-9771PS BRAIN WO CONTNormalGuernsey Memorial HospitalFibrin D- dimer DDU (PPP) [Mass/Vol]on 05-06-2024D AWBMH384 ng/mL DDUHigh<255ProMethodist Hospital AtascosaComment on above:Result Comment: Results >=255ng/mL DDU: Results may beindicative of the presence of VTE. The useof the Wells score and further diagnostictests should be considered. Elevated D-Dimerlevels can alsobe associated with DIC,neoplasm, , trauma and liver disease.Elevated levels of rheumatoid factor may leadto an overestimation of the D-Dimer level. Performed By: #### 12793-5, CBCA, BMP, 94817-4 ####[facility] ([id number])[address] [place] [address] 39823Lceatvo Glucometer (BldC) [Mass/Vol]on 64-55-4308Xzjcoiq [Mass/Vol]129 mg/sBAzik18-91 [facility] Memorial HospitalGlucose [Mass/Vol]123 mg/vYGeyx31-49BguDokapiGuernsey Memorial HospitalGlucose [Mass/Vol]120 mg/pWFxlc66-84YmrSoocioGuernsey Memorial HospitalLactate (P mayra) [Moles/Vol]on 31-01-2330Aqlnzpw [Moles/Vol]1.6 mmol/LNormal0.4-2.0 [facility] HospitalComment on above:Performed By: #### 54590-6 ####[facility] ([id number])[address] [place] [address] 31322KDCRHUW W/REFLEX3.6 mmol/LHigh0.4-2.0[facility] Memorial HospitalComment on above:Performed By: #### 37996-8 ####[facility] ([id number])[address] [place] [address] 23286 Natriuretic peptide B [Mass/Vol]on 02-02-6707Wfpojwvylxq peptide B (Bld) [Mass/Vol]204 pg/mLHigh<100.0Gu[facility] Memorial HospitalComment on above: Performed By: #### BMP, 30049-6 ####[facility] ([id number])[address] [place] [address], [place] [address]IDTRYXLVCcu 00-13-6274Cphbzbmcq [Moles/Vol]3.0 mmol/LLow3.5-5.0[facility] Memorial HospitalComment on above: Performed By: #### 2823-3 ####[facility] ([id number])[address] [place] [address] 90622JWZS/FLU A+B/RSV by NAAT/Molecularon 20-57-2685UREF/FLU A+B/RSV by NAAT/MolecularNormalProMethodist Hospital Atascosa Comment on above:Performed By: #### COVFLR ####[facility] ([id number])[address] [place] [address], [place] [address]Iqvtjvhv I.cardiac High sensitivity method [Mass/Vol]on HOUR TROP I, HIGH MUJJMUUUSDS46 ng/LHigh<21ProMethodist Hospital AtascosaComment on above:Result Comment: Elevations of hs-Troponin may be due to causesother than myocardial ischemia.Recommend serial hs-Troponin testing be performed.For the initial evaluation and management of chestpain patients, refer to the algorithms linked below.Emergency Patient:[email or web address]://[email or web address]/dv/[email or web address]?d =[email or web address]&dh=1cc5a&e=62004&uh=acaeaInpatient:[email or web address]://[email or web address]/[email or web address]? t=7513807&dh=f72e7&e=72000&uh=acaeaPerformed By: #### 68358-8 ####[facility] ([id number])[address] [place] [address], [place] [address]LWZYDVCM I, HIGH NVZZPIKMPGK06 ng/LHigh<21ProMethodist Hospital AtascosaCompontiac general hospital on above:Result Comment: Elevations of hs-Troponin may be due to causesother than myocardial ischemia.Recommend serial hs-Troponin testing be performed.For the initial evaluation and management of chestpain patients, refer to the algorithms linked below.Emergency Patient:[email or web address]://[email or web address]/dv/[email or web address]?d =7306563&dh=1cc5a&i=93655&uh=acaeaInpatient:[email or web address]://[email or web address]/dv/[email or web address]? e=1737716&dh=f72e7&k=29704&uh=acaeaPerformed By: #### 56210-7, CBCA, BMP, 54619- 7 ####[facility] ([id number])[address] [place] [address] 93963NGFGD CULTUREon 08-70-3440Fvwnrdfz identified Cx Nom (U) CULTURE RESULTS MIXED GRAM POSITIVE AND GRAM NEGATIVE ORGANISMS MULTIPLE SPECIES PRESENT. PROBABLE COLLECTION CONTAMINATION. SUGGEST REPEAT SPECIMEN.NormalProMethodist Hospital AtascosaComment on above:Performed By: #### 630-4 ####[facility] ([id number])[address] [place] [address], [address], [place] [address]EPJ MACROSCOPIC NURon 91-58-2398OBTWBTGHU NURNegativeNormal NEGProMethodist Hospital AtascosaComment on above:Performed By: #### NUM ####[facility] ([id number])[address] [place] [address] 23559WZSFF/HGB NURMODERATEAbnormalNEGGuernsey Memorial HospitalComment on above: Performed By: #### NUM ####[facility] ([id number])[address] [place] [address] 61771KTFXKUK NURNegativeNormalNEGProMethodist Hospital AtascosaComment on above:Performed By: #### NUM ####[facility] ([id number])[address] [place] [address] 71482RZQBIJN NURNegativeNormalNEGProMethodist Hospital AtascosaComment on above:Performed By: #### NUM ####[facility] ([id number])[address], [place], [place] [address]EOMCTLIUW ESTERASE NURLargeAbnormalNEGGuernsey Memorial HospitalComment on above:Performed By: #### NUM ####[facility] ([id number])[address] [place] [address], [place] [address]DDLEWWJ ENMANUEL NegativeNormalNEGProMethodist Hospital AtascosaComment on above:Performed By: #### NUM ####[facility] ([id number])[address] [place] [address] 92254BG NUR6.7Orvpjp0.0-8.5PSt. Vincent HospitalComment on above:Performed By: #### NUM ####[facility] ([id number])[address] [place] [address] 35381IZMUYMV ENMANUEL>=300AbnormalNEG [facility] HospitalComment on above:Performed By: #### NUM ####[facility] ([id number])[address] [place] [address] [place] [address]GKGMWTLN GRAVITY NUR1.985Hmzigt3.003-1.035Gu[facility] Memorial HospitalComment on above:Performed By: #### NUM ####[facility] ([id number])[address] [place] [address] 26579HBCYYSYSUUBW NUR0.2 eu/dLNormal <1.1PSt. Vincent HospitalComment on above:Performed By: #### NUM ####[facility] ([id number])[address] [place] [address] 70018BF CHEST 1 VWon 44-76-1994VW CHEST 1 VWNormalProMedica [facility]sc [facility] Norris Jr. Cancer HospitalXR SPINE LUMBAR 2 OR 3 VWSon 83-76-7823QM SPINE LUMBAR 2 OR 3 VWSNormal ProMedicSonoma Valley HospitalBASIC METABOLIC PANLon 36-17-9758Wdzqw gap [Moles/Vol] 8 mmol/LNormal5-15Pro[facility] HospitalComment on above:Performed By: #### 47066-0, ANGLE, CBCA, 277-1 ####[facility] ([id number])[address], [address], [place] [address]Odefyek [Mass/Vol]8.9 mg/dLNormal8.5-10.5 [facility] HospitalComment on above:Performed By: #### 02968-7, ANGLE, CBCA, 2776- ####[facility] ([id number])[address], [address], [place] [address]Pijfckno [Moles/Vol]102 mmol/GWmcudr69-380WqmDsktmx [facility] HospitalComment on above:Performed By: #### 89901-0, ANGLE, CBCA, 277- ####[facility] ([id number])[address] [address], [place] [address]MD9 [Moles/Vol]29 mmol/LPijdeq10-71VsgNctasf [facility] HospitalComment on above:Performed By: #### 75459-1, ANGLE, CBCA, 2777-1 ####[facility] ([id number])[address] [address], [place] [address]Jvjygbvwkp [Mass/Vol] 0.89 mg/dLNormal0.60-1.30Pro[facility]ica Paynesville HospitalComment on above:Result Comment: METHOD TRACEABLE TO IDAL STANDARDPerformed By: #### 71651-8, ANGLE, CBCA, 277-1 ####[facility] ([id number])[address] [address], [place] [address]OUO/1.73 sq M.predicted among non-blacks MDRD (S/P/Bld) [Vol rate/Area]89 mL/min/{1.73_m2}Normal>59ProMedica Ward HospitalComment on above: Result Comment: Reported eGFR is based on theCKD-EPI 2020 equation that doesnot use a race coefficient.Performed By: #### 31170-7, BMP, CBCA, 277- ####[facility] ([id number])[address], [address] [place] [address] Glucose [Mass/Vol]109 mg/qWJrff15-19PnoNswynh [place] HospitalComment on above: Performed By: #### 13689-9, BMP, CBCA, 2776- ####[facility] ([id number])[address], [address] [place] [address] 516[address]Yolgeikti [Moles/Vol]4.1 mmol/LNormal3.5-5.0Pro[facility] Hospital HospitalComment on above:Performed By: #### 34650-5, ANGLE, CBCA, 2776- ####[facility] ([id number])[address], [address] [place] [address]68[address]Aljcle [Moles/Vol]139 mmol/ALbidjz453-272 ProMCleveland Clinic [facility] HospitalComment on above:Performed By: #### 86510-5, ANGLE, CBCA, 2776- ####[facility] ([id number])[address], [address] [place] [address] 87[address]Wwyq nitrogen [Mass/Vol]19 mg/dLNormal5-27Pro[facility] HospitalComment on above:Performed By: #### 41369-8, ANGLE, CBCA, 277- ####[facility] ([id number])[address] [address] [place] [address]73[address]Mmufy Metabolic Panelon 84-47-3225Sdxtb gap [Moles/Vol]8 mmol/L5 - 15 mmol/LProMedica Health SystemCalcium [Mass/Vol]8.9 mg/dL8.5 - 10.5 mg/dL [facility] Health SystemChloride [Moles/Vol]102 mmol/L98 - 109 mmol/LProMedica Health SystemCO2 [Moles/Vol]29 mmol/L22 - 32 mmol/LProMedica Health System Creatinine [Mass/Vol]0.89 mg/dL0.60 - 1.30 mg/dLProAdams County Regional Medical CentereGFR (CKD-EPI)non-race uhngojohw61- PINFPFisher-Titus Medical Center SystemGlucose [Mass/Vol]109 mg/rTYoxe14 - 99 mg/dLProAdams County Regional Medical CenterPotassium [Moles/Vol]4.1 mmol/L3.5 - 5.0 mmol/LProMedbaptist medical center east Health SystemSodium [Moles/Vol]139 mmol/L134 - 146 mmol/L ProMMadelia Community Hospital SystemUrea nitrogen [Mass/Vol]19 mg/dL5 - 27 mg/dLOhioHealth Grant Medical CenterCBC AND AUTO DIFFon 68-14-0194PETLETOZ BASOPHIL0.1 X10E9/LNormal 0.0-0.2PMercy Health St. Anne HospitalComment on above:Performed By: #### 53304-7, BMP, CBCA, 2776- ####[facility] ([id number])[address] [address] [place] [address] 40706CEQOMIQK NEUTROPHIL8.3 X10E9/LHigh1.5-6.6ProAkron Children'S HospitalComment on above:Performed By: #### 94200-6, BMP, CBCA, 2776- ####[facility] ([id number])[address] [address] [place] [address] 05219Vqrdgpscy/100 WBC (Bld)1.1 %NormalProAkron Children'S HospitalComment on above:Performed By: #### 78770-0, BMP, CBCA, 2776- ####[facility] ([id number])[address], [address] [place] [address] 30601Vyphzhkohfy (Bld) [#/Vol]0.0 10*3/uLNormal0.0-0.4St. Rita's HospitalComment on above: Performed By: #### 65042-0, BMP, CBCA, 2776- ####[facility] ([id number])[address], [address] [place] [address] 12477Fdfsmezyede/100 WBC (Bld) 0.1 %NormalProCommunity Memorial Hospital HospitalComment on above:Performed By: #### 11990-0, BMP, CBCA, 2776- ####[facility] ([id number])[address], [address] [place] [address] 75094Ofqlzjueffc distribution width (RBC) [Ratio]19.3 %High 11.5-15.0ProCommunity Memorial Hospital HospitalComment on above:Performed By: #### 16705-3, BMP, CBCA, 2776- ####[facility] ([id number])[address], [address] [place] [address] 79923Uiqiporzwd (Bld) [Volume fraction]24.2 %Eoi80-12 [facility] HospitalComment on above:Performed By: #### 45446-5, BMP, CBCA, 2776-02 ####[facility] ([id number])[address], [address] [place] [address] 322[address]Jrmsbcmjfa (Bld) [Mass/Vol]8.1 g/dLLow13.0-17.0Pro[facility] Hospital HospitalComment on above:Performed By: #### 40474-3, BMP, CBCA, 2776-02 ####[facility] ([id number])[address] [address]Hvbilxbzjqc (Bld) [#/Vol]1.4 10*3/uLNormal1.0-3.5PThe NeuroMedical Centerica [facility] Comment on above:Performed By: #### 35331-5, BMP, CBCA, 2776- ####[facility] ([id number])[address] [address] Lymphocytes/100 WBC (Bld)13.1 %NormalProCommunity Memorial Hospital HospitalComment on above: Performed By: #### 78277-5, BMP, CBCA, 2776- ####[facility] ([id number])[address], [address] [place] [address] 81790VXO (RBC) [Entitic mass] 32.9 bkUxsoyc25-13NwqMzrkvk Ward HospitalComment on above:Performed By: #### 41561-5, BMP, CBCA, 2776- ####[facility] ([id number])[address], [address] [place] [address] 52943QJOR (RBC) [Mass/Vol]33.7 g/oNLjvinm56-01 [facility] HospitalComment on above:Performed By: #### 00634-8, BMP, CBCA, 2776- ####[facility] ([id number])[address], [address] [place] [address] 10606TZO (RBC) [Entitic vol]98 xSEfmdpy16-124VuxAzcqpg Ward HospitalComment on above:Performed By: #### 18458-7, BMP, CBCA, 2776- ####[facility] ([id number])[address] [address] [place] [address] 59333Qtumcfwne (Bld) [#/Vol]0.8 10*3/uLNormal0-0.9[facility] Comment on above:Performed By: #### 61033-4, BMP, CBCA, 2776- ####[facility] ([id number])[address], [address] [place] [address] 05269 Monocytes/100 WBC (Bld)7.6 %NormalProMedica Ward HospitalComment on above: Performed By: #### 94589-0, BMP, CBCA, 2776- ####[facility] ([id number])[address], [address] [place] [address] 61307Jinpldrcrgp/100 WBC (Bld) 78.1 %NormalProMedica Ward HospitalComment on above:Performed By: #### 41070- 9, BMP, CBCA, 2776- ####[facility] ([id number])[address], [address] [place] [address] 35895Flanrncc mean volume (Bld) [Entitic vol]10.1 fL Normal7-12[facility] HospitalComment on above:Performed By: #### 90753-6, BMP, CBCA, 2776- ####[facility] ([id number])[address], [address] [place] [address] 90844Aruqfhlkz (Bld) [#/Vol]83 10*3/fEIrv796-680VfuNhtech [facility]edo HospitalComment on above:Performed By: #### 33184-9, BMP, CBCA, 2776- ####[facility] ([id number])[address] [address]GQT COUNT2.47 X10E12/LLow4.10-5.70Pro[facility] HospitalComment on above:Performed By: #### 70443-1, BMP, CBCA, 277- ####[facility] ([id number])[address] [address] [place] [address] 77851FEP (Bld) [#/Vol]10.6 10*3/uLNormal4.0-11.0Pro[facility] HospitalComment on above:Performed By: #### 11953-7, BMP, CBCA, 2776-02 ####[facility] ([id number])[address] [address] [place] [address] 78178UHJ auto differentialon 82-17-3215Kdielekke (Bld) [#/Vol]0.1 10*3/uLProMedica Health SystemBasophils/100 WBC (Bld)1.1 %[facility] SystemEosinophils (Bld) [#/Vol]0 10*3/uL [facility] SystemEosinophils/100 WBC (Bld)0.1 %[facility] Erythrocyte distribution width (RBC) [Ratio]19.3 %High11.5 - 15.0 %[facility] CenterHematocrit (Bld) [Volume fraction]24.2 %Low39 - 49 %[facility] CenterHemoglobin (Bld) [Mass/Vol]8.1 g/dLLow13.0 - 17.0 g/dLOhioHealth Grant Medical CenterInterpretation and review of laboratory resultsAbnormalOhioHealth Grant Medical CenterLymphocytes (Bld) [#/Vol]1.4 10*3/[facility] Lymphocytes/100 WBC (Bld)13.1 %[facility] (RBC) [Entitic mass] 32.9 pg27 - 34 [facility] HospitalMCHC (RBC) [Mass/Vol]33.7 g/dL32 - 36 g/dLOhioHealth Grant Medical CenterMCV (RBC) [Entitic vol]98 fL80 - 100 [facility] CenterMonocytes (Bld) [#/Vol]0.8 10*3/[facility] Monocytes/100 WBC (Bld)7.6 %[facility] Medical CenterNeutrophils (Bld) [#/Vol]8.3 10*3/[facility] HospitalNeutrophils/100 WBC (Bld)78.1 %[facility] Medical CenterPlatelet mean volume (Bld) [Entitic vol]10.1 fL7 - 12 [facility] CenterPlatelets (Bld) [#/Vol]83 10*3/[facility] HospitalRBC (Bld) [#/Vol]2.47 10*6/[facility] HospitalWBC corrected for nucl RBC Auto (Bld) [#/Vol]10.6[facility] HospitalGlucose Glucometer (BldC) [Mass/Vol]on 26-52-3486Cetyyxk [Mass/Vol]103 mg/bSXjzt30 - 99 mg/dLOhioHealth Grant Medical CenterInterpretation and review of laboratory results AbnormalTorrance State HospitalGlucose [Mass/Vol]103 mg/rTKisc15-37WlbSgoltiSt. Rita's HospitalMAGNESIUMon 34-84-9378Jnattmihg [Mass/Vol]1.6 mg/dLLow1.8-2.6Pro[facility] HospitalComment on above:Performed By: #### 54353-8, ANGLE, MARVA, 2777-1 ####[facility] ([id number])[address], [address] [place] [address] 45837Uzkqubewgpj 2024 Magnesium [Mass/Vol]1.6 mg/dLLow1.8 - 2.6 mg/dLOhioHealth Grant Medical CenterNo Panel Informationon 84-51-4526Jyoqmprvmbnres and review of laboratory resultsAbnormal [facility] State HospitalPHOSPHORUSon 66-42-7855Scqynxuaw [Mass/Vol]3.3 mg/dLNormal2.4-4.9ProAkron Children'S HospitalComment on above: Performed By: #### 51232-6, ANGLE, MARVA, 2777-1 ####[facility] ([id number])[address], [address] [place] [address] 61586Amciuauzm [Mass/Vol]3.4 mg/dLNormal2.4-4.9St. Rita's HospitalComment on above:Performed By: #### 2777-1 ####[facility] ([id number])[address], [address] [place] [address] 44851Ujkjkrdty [Mass/Vol]on 71-25-4125QpbKpmdnn Health System Phosphoruson 64-59-1077Zpmlwngzm [Mass/Vol]3.3 mg/dL2.4 - 4.9 mg/dLOhioHealth Grant Medical CenterPhosphate [Mass/Vol]3.4 mg/dL2.4 - 4.9 mg/dLOhioHealth Grant Medical Center BASIC METABOLIC PANLon 48-14-4468Tssej gap [Moles/Vol]5 mmol/LNormal5-15 [facility] HospitalComment on above:Performed By: #### MARVA, 2777-1, 97540-3, BMP ####[facility] ([id number])[address], [address] [place] [address] 21758Mgbntqk [Mass/Vol]8.6 mg/dLNormal8.5-10.5ProMedCherrington Hospital HospitalComment on above:Performed By: ###Carolyn DURHAM, 2776-02, , BMP ####[facility] ([id number])[address], [address], [place] [address]Alvswvex [Moles/Vol]105 mmol/SEhtdsg12-652XkvLydzgz [place] HospitalComment on above:Performed By: #### MARVA, 2776-02, , BMP ####[facility] ([id number])[address], [address], [place] [address]AC8 [Moles/Vol] 29 mmol/SBfwvkw42-26LswAhmjir [place] HospitalComment on above:Performed By: ###Carolyn DURHAM, 2776-02, , BMP ####[facility] ([id number])[address] [address] [place] [address] 47063Lpurjlylwx [Mass/Vol]0.87 mg/dLNormal 0.60-1.30[facility] HospitalComment on above:Result Comment: METHOD TRACEABLE TO IDMS STANDARDPerformed By: #### MARVA, 2776-02, , BMP ####[facility] ([id number])[address] [address], [place] [address]CUX/1.73 sq M.predicted among non-blacks MDRD (S/P/Bld) [Vol rate/Area]90 mL/min/{1.73_m2}Normal>59ProMedica [place]ville HospitalComment on above:Result Comment: Reported eGFR is based on theCKD-EPI 2020 equation that doesnot use a race coefficient.Performed By: #### MARVA, 2776-02, , BMP ####[facility] ([id number])[address] [address] [place] [address] Glucose [Mass/Vol]139 mg/oXHjoq61-55RaxVncgky [place] HospitalComment on above: Performed By: #### MARVA, 2776-02, , BMP ####[facility] ([id number])[address], [address] [place] [address] 62548Jwzhimbwd [Moles/Vol]4.6 mmol/LNormal3.5-5.0[facility] HospitalComment on above:Performed By: #### MARVA, 2776-02, , BMP ####[facility] ([id number])[address], [address] [place] [address] 66561Oxauxg [Moles/Vol]139 mmol/UNbxzsw834-394 ProMCleveland Clinic [facility]ucl[facility] HospitalComment on above:Performed By: ###Carolyn DURHAM, 2776-02, , BMP ####[facility] ([id number])[address], [address] [place] [address] 20155Xzmf nitrogen [Mass/Vol]15 mg/dLNormal5-27[facility] HospitalComment on above:Performed By: ###Carolyn DURHAM, 2776-02, , BMP ####[facility] ([id number])[address], [address] [address]Dkifa Metabolic Panelon 08-65-8994Nkkid gap [Moles/Vol]5 mmol/L5 - 15 mmol/Critical access hospitaloMedica Health SystemCalcium [Mass/Vol]8.6 mg/dL8.5 - 10.5 mg/dL ProMMadelia Community Hospital SystemChloride [Moles/Vol]105 mmol/L98 - 109 mmol/LProMedica Health SystemCO2 [Moles/Vol]29 mmol/L22 - 32 mmol/LProMedica Health System Creatinine [Mass/Vol]0.87 mg/dL0.60 - 1.30 mg/dLProUniversity [facility]als [facility] SystemeGFR (CKD-EPI)non-race leuytzoyf21- PINFPFisher-Titus Medical Center SystemGlucose [Mass/Vol]139 mg/mYPbna27 - 99 mg/dLProMedica Health SystemPotassium [Moles/Vol]4.6 mmol/L3.5 - 5.0 mmol/LProMedica Health SystemSodium [Moles/Vol]139 mmol/L134 - 146 mmol/L [facility] Health SystemUrea nitrogen [Mass/Vol]15 mg/dL5 - 27 mg/dLProMediLakeHealth TriPoint Medical Center SystemCBC AND AUTO DIFFon 66-52-1248IGYRRVLT BASOPHIL0.0 X10E9/LNormal 0.0-0.2Pro[facility] HospitalComment on above:Performed By: #### MARVA , , BMP ####[facility] ([id number])[address], [address] [place] [address] 93809MGFUYECF NEUTROPHIL4.6 X10E9/LNormal1.5-6.6Pro[facility] HospitalComment on above:Performed By: #### MARVA 2776-02, , BMP ####[facility] ([id number])[address], [address] [place] [address] 47128Ztnoxrsjn/100 WBC (Bld)0.4 %NormalProMedica Ward HospitalComment on above:Performed By: #### MARVA 2776-02, , BMP ####[facility] ([id number])[address], [address] [place] [address] 25515Cecdcqvbver (Bld) [#/Vol]0.0 10*3/uLNormal0.0-0.4Pro[facility] HospitalComment on above: Performed By: #### MARVA 2776-02, , BMP ####[facility] ([id number])[address], [address] [place] [address] 67866Gncxfmsmfpw/100 WBC (Bld) 0.0 %NormalProMedica Ward HospitalComment on above:Performed By: #### MARVA 2776-02, , BMP ####[facility] ([id number])[address], [address], [place] [address]Kmbdigguprh distribution width (RBC) [Ratio]19.3 %High11.5-15.0ProRegional Medical Centerca [place] HospitalComment on above:Performed By: #### MARVA 2776-02, , BMP ####[facility] ([id number])[address], [address], [place] [address]Bzybvjrsna (Bld) [Volume fraction]24.4 %Low 39-49ProRegional Medical Centerca [place] HospitalComment on above:Performed By: #### MARVA, 2776-02, , BMP ####[facility] ([id number])[address], [address], [place] [address]Okykpxbjus (Bld) [Mass/Vol]8.3 g/dLLow13.0-17.0ProRegional Medical Centerca [place] HospitalComment on above:Performed By: #### MARVA 2776-02, , BMP ####[facility] ([id number])[address] [address] [place] [address] 21286Lygkodauzer (Bld) [#/Vol]0.6 10*3/uLLow1.0-3.5PMercy Health St. [facility] Comment on above:Performed By: #### MARVA 2776-02, , BMP ####[facility] ([id number])[address] [address] [place] [address] Lymphocytes/100 WBC (Bld)10.9 %NormalProCommunity Memorial Hospital HospitalComment on above: Performed By: #### MARVA, 2776-02, , BMP ####[facility] ([id number])[address], [address], [place] [address]UJL (RBC) [Entitic mass] 33.3 eiGhgxzt89-47VwdMdbcra Ward HospitalComment on above:Performed By: #### MARVA, 2776-02, , BMP ####[facility] ([id number])[address], [address] [place] [address]SPJB (RBC) [Mass/Vol]33.9 g/dITfmeus62-75 [facility] HospitalComment on above:Performed By: #### MARVA, 2776-02, , BMP ####[facility] ([id number])[address], [address], [place] [address]XTE (RBC) [Entitic vol]98 fLEiqpaw79-623HbyJzzzcs [place] HospitalComment on above:Performed By: #### MARVA, 2776-02, , BMP ####[facility] ([id number])[address], [address] [place] [address] 98226Wkxdnwzmq (Bld) [#/Vol]0.4 10*3/uLNormal0-0.9[facility] Comment on above:Performed By: #### MARVA, 2776-02, , BMP ####[facility] ([id number])[address], [address] [place] [address] 38293 Monocytes/100 WBC (Bld)7.6 %NormalProMedica Ward HospitalComment on above: Performed By: #### MARVA, 2776-02, , BMP ####[facility] ([id number])[address], [address] [place] [address] 45628Wcdzzkusazs/100 WBC (Bld) 81.1 %NormalProMedica Ward HospitalComment on above:Performed By: #### MARVA, 2776-02, , BMP ####[facility] ([id number])[address], [address], [place] [address]Rzfcykfx mean volume (Bld) [Entitic vol]10.5 fL Normal7-12ProMedica [facility]ult[facility] County Health CenterComment on above:Performed By: #### MARVA, 2776-02, , BMP ####[facility] ([id number])[address], [address] [place] [address]Pjebktswf (Bld) [#/Vol]69 10*3/bUNxf173-550 ProMUniversity Hospitals Conneaut Medical CenterComment on above:Performed By: #### MARVA, 2776-02, , BMP ####[facility] ([id number])[address] [address]MQA COUNT2.48 X10E12/LLow4.10-5.70[facility] Comment on above:Performed By: ###Carolyn DURHAM, 2776-02, , BMP ####[facility] ([id number])[address] [address]PPO (Bld) [#/Vol]5.7 10*3/uLNormal4.0-11.0[facility] HospitalComment on above: Performed By: #### MARVA, 2776-02, , BMP ####[facility] ([id number])[address] [address]EZB auto differentialon 54-14-3924Vizsooddy (Bld) [#/Vol]0 10*3/uLProMedica Health SystemBasophils/100 WBC (Bld)0.4 %[facility] Health SystemEosinophils (Bld) [#/Vol]0 10*3/uLProMedica Health SystemEosinophils/100 WBC (Bld)0 %ProMedica Health SystemErythrocyte distribution width (RBC) [Ratio]19.3 %High11.5 - 15.0 %[facility] Hematocrit (Bld) [Volume fraction]24.4 %Low39 - 49 %[facility] Hemoglobin (Bld) [Mass/Vol]8.3 g/dLLow13.0 - 17.0 g/dLOhioHealth Grant Medical Center Interpretation and review of laboratory resultsAbDannemora State Hospital for the Criminally Insane Lymphocytes (Bld) [#/Vol]0.6 10*3/uLLowOhioHealth Grant Medical CenterLymphocytes/100 WBC (Bld)10.9 %[facility] Medical CenterMCH (RBC) [Entitic mass]33.3 pg27 - 34 pg [facility] Medical CenterMCHC (RBC) [Mass/Vol]33.9 g/dL32 - 36 g/dLOhioHealth Grant Medical CenterMCV (RBC) [Entitic vol]98 fL80 - 100 [facility] Monocytes (Bld) [#/Vol]0.4 10*3/uLOhioHealth Grant Medical CenterMonocytes/100 WBC (Bld) 7.6 %[facility] Medical CenterNeutrophils (Bld) [#/Vol]4.6 10*3/uLOhioHealth Grant Medical CenterNeutrophils/100 WBC (Bld)81.1 %[facility] Medical CenterPlatelet mean volume (Bld) [Entitic vol]10.5 fL7 - 12 [facility] CenterPlatelets (Bld) [#/Vol]69 10*3/uLLowOhioHealth Grant Medical CenterRBC (Bld) [#/Vol]2.48 10*6/uLLow [facility] Medical CenterWBC corrected for nucl RBC Auto (Bld) [#/Vol]5.7Torrance State HospitalFL FLUOROSCOPY UP TO 1 HOURon 45-61-4635WC FLUOROSCOPY UP TO 1 HOURNoOhio State University Wexner Medical CenterGlucose Glucometer (BldC) [Mass/Vol]on 38-18-3911Vnbtbot [Mass/Vol]207 mg/fPOapa05 - 99 mg/dLOhioHealth Grant Medical CenterInterpretation and review of laboratory resultsAbConemaugh Nason Medical CenterGlucose [Mass/Vol]107 mg/fLHfmd51 - 99 mg/dL [facility] CenterInterpretation and review of laboratory resultsAbozarks medical centeral [facility] State HospitalGlucose [Mass/Vol]207 mg/dLHigh 65-99[facility] HospitalGlucose [Mass/Vol]107 mg/rSHqsp76-81HcgNhepsr [place] HospitalGlucose [Mass/Vol]206 mg/aVXlnm72 - 99 mg/dLOhioHealth Grant Medical CenterInterpretation and review of laboratory resultsAbnoFroedtert Menomonee Falls Hospital– [facility] SystemGlucose [Mass/Vol]206 mg/xUZnva23-14WnnOvpzfs [place] HospitalGlucose [Mass/Vol]139 mg/lQCdcn03 - 99 mg/dLOhioHealth Grant Medical CenterInterpretation and review of laboratory resultsAbnoKensington HospitalGlucose [Mass/Vol]139 mg/aEWizb63-85GorAsitez [place] HospitalIonized magnesiumon 55-12-5679Xkwfykmni Ionized ISE (Bld) [Moles/Vol]0.56 mmol/L0.45 - 0.74 mmol/LPrSheltering Arms HospitalMAGNESIUMon 99-29-8908Iscrvclmt [Mass/Vol]1.9 mg/dLNormal1.8-2.6[facility] Comment on above:Performed By: #### CBCA, 2777-1, 74578-3, BMP ####[facility] ([id number])[address] [place] [address], [address] [address] Magnesiumon 60-80-1566Ucbbuthiv [Mass/Vol]1.9 mg/dL1.8 - 2.6 mg/dLOhioHealth Grant Medical CenterMagnesium Ionized ISE (Bld) [Moles/Vol]on 78-91-5630MilKsxuvgOhioHealth Grant Medical CenterMagnesium [Moles/Vol]0.56 mmol/LNormal0.45-0.74[facility] HospitalComment on above:Result Comment: NEW REFERENCE RANGEPerformed By: #### 28537-0 ####[facility] ([id number])[address] [place] [address], [address] [place] [address]Hj Panel Informationon 72-16-5152Ojkacsbplytlcu and review of laboratory resultsAbConemaugh Nason Medical Center PHOSPHORUSon 83-02-7093Lyniccexf [Mass/Vol]2.1 mg/dLLow2.4-4.9[facility] HospitalComment on above:Performed By: #### 2777-1 ####[facility] ([id number])[address] [facility], [address], [place] [address]Xpwsixkzf [Mass/Vol]1.7 mg/dLLow2.4-4.9Pro[facility] HospitalComment on above:Performed By: #### MARVA, 2777-1, 73760-6, BMP ####[facility] ([id number])[address], [address], [place] [address]Zacumllyd [Mass/Vol]on 03-17-2024 Interpretation and review of laboratory resultsAbnoMayo Clinic Health System– Red CedarPhosphoruson 27-29-1274Xqsoklzzf [Mass/Vol]2.1 mg/dLLow 2.4 - 4.9 mg/dLOhioHealth Grant Medical CenterPhosphate [Mass/Vol]1.7 mg/dLLow2.4 - 4.9 mg/dLOhioHealth Grant Medical CenterRF Less than 1 houron 67-69-1409IIIGPPMSTDOqoBgyfdd Health SystemRF Less than 1 hourOrdered By: Braulio De Anda on 03-17-2024 [facility] Work Phone: [phone] 78-78-1187421173OtzpwjZsgFdnnzg [place] HospitalBASIC METABOLIC PANLon 36-91-3659Ioxji gap [Moles/Vol]4 mmol/LLow5-15 [facility] HospitalComment on above:Performed By: #### MARVA, 73891-3, BMP, 277-1 ####[facility] ([id number])[address], [address], [place] [address]Zwijqjr [Mass/Vol]8.3 mg/dLLow8.5-10.5PPeoples Hospital HospitalComment on above:Performed By: #### MARVA, 17047-8, BMP, 2777-1 ####[facility] ([id number])[address], [address], [place] [address]Meoxajcg [Moles/Vol]107 mmol/UWazhsz35-993LxgPegeox [place] HospitalComment on above:Performed By: #### MARVA, , BMP, 2776- ####[facility] ([id number])[address], [address], [place] [address]RT8 [Moles/Vol] 29 mmol/ZHzokll37-37CgbNmtygz [place] HospitalComment on above:Performed By: #### MARVA, , ANGLE, 2776-02 ####[facility] ([id number])[address], [address], [place] [address]Ggijjgogcb [Mass/Vol]0.65 mg/dLNormal 0.60-1.30ProAkron Children'S HospitalComment on above:Result Comment: METHOD TRACEABLE TO IDMS STANDARDPerformed By: #### MARVA, , ANGLE, 2776-02 ####[facility] ([id number])[address] [address], [place] [address]sLLC (CKD-EPI) NON-RACE DEPENDENT>90Normal>59ProAkron Children'S Hospital Comment on above:Result Comment: Reported eGFR is based on theCKD-EPI 2020 equation that doesnot use a race coefficient.Performed By: #### MARVA, , ANGLE, 2776-02 ####[facility] ([id number])[address] [address], [place] [address]Obaqile [Mass/Vol]90 mg/mZTebxhz90-49RhwAdqbyo [place] HospitalComment on above:Performed By: #### MARVA, , BMP, 2776- ####[facility] ([id number])[address], [address], [place] [address]Wvowszbfq [Moles/Vol]4.1 mmol/LNormal3.5-5.0[facility] Comment on above:Performed By: #### MARVA, 19719-7, BMP, 2777-1 ####[facility] ([id number])[address], [address] [place] [address] Sodium [Moles/Vol]140 mmol/KKkekah198-245MipFwjgjq [place] HospitalComment on above:Performed By: #### MARVA, 60024-9, BMP, 277- ####[facility] ([id number])[address], [address] [place] [address]Fhlx nitrogen [Mass/Vol]11 mg/dLNormal5-27ProAkron Children'S HospitalComment on above:Performed By: #### MARVA, 14237-3, BMP, 277-1 ####[facility] ([id number])[address], [address] [place] [address]XECADJQTC,TOTALon 58-70-3518Uzrkqeqaf [Mass/Vol]0.5 mg/dLNormal0.3-1.2PMercy Health St[facility] Comment on above:Performed By: #### 50180-1, 1974- ####[facility] ([id number])[address] [address]Uuhcn Metabolic Panel on 87-39-4670Yuxfr gap [Moles/Vol]4 mmol/LLow5 - 15 mmol/[facility] SystemCalcium [Mass/Vol]8.3 mg/dLLow8.5 - 10.5 mg/dLSelect Medical Specialty [facility], [facility] System Chloride [Moles/Vol]107 mmol/L98 - 109 mmol/LProMedica Health SystemCO2 [Moles/Vol]29 mmol/L22 - 32 mmol/[facility] Health SystemCreatinine [Mass/Vol] 0.65 mg/dL0.60 - 1.30 mg/dLOhioHealth Grant Medical CentereGFR (CKD-EPI)non-race dependent- PINGrant Hospital SystemGlucose [Mass/Vol]90 mg/dL65 - 99 mg/dL [facility] SystemPotassium [Moles/Vol]4.1 mmol/L3.5 - 5.0 mmol/LProMedica Health SystemSodium [Moles/Vol]140 mmol/L134 - 146 mmol/LProMedica Health System Urea nitrogen [Mass/Vol]11 mg/dL5 - 27 mg/dLProAdams County Regional Medical CenterBilirubin, totalon 17-93-3350Eqsaeaiup [Mass/Vol]0.5 mg/dL0.3 - 1.2 mg/dLProAdams County Regional Medical CenterCBC AND AUTO DIFFon 71-09-1572LEVKFPNN BASOPHIL0.1 X10E9/LNormal0.0-0.2 [facility] HospitalComment on above:Performed By: #### MARVA, , BMP, 2776- ####[facility] ([id number])[address], [address] [place] [address]EONXSSIK NEUTROPHIL3.7 X10E9/LNormal1.5-6.6ProCommunity [facility] HospitalComment on above:Performed By: #### MARVA, , BMP, 2776- ####[facility] ([id number])[address] [address] [place] [address]Svcbjpqad/100 WBC (Bld)1.0 %NormalProCommunity Memorial Hospital HospitalComment on above:Performed By: #### MARVA, , BMP, 2776- ####[facility] ([id number])[address], [address] [place] [address]Mfvivltwhjm (Bld) [#/Vol]0.1 10*3/uLNormal0.0-0.4ProCommunity [facility] HospitalComment on above: Performed By: #### MARVA, , BMP, 2776- ####[facility] ([id number])[address], [address], [place] [address]Mlcztmflabm/100 WBC (Bld) 2.0 %NormalProMedica Ward HospitalComment on above:Performed By: #### MARVA, , BMP, 2776-02 ####[facility] ([id number])[address], [place] [address]Ffppaapzxrn distribution width (RBC) [Ratio]19.3 %High11.5-15.0ProMedica Ward HospitalComment on above:Performed By: #### MARVA, , BMP, 2776-02 ####[facility] ([id number])[address] [address]Nvwhsoyuqb (Bld) [Volume fraction]20.3 %Low 39-49ProMedica Ward HospitalComment on above:Performed By: #### MARVA, , BMP, 2776-02 ####[facility] ([id number])[address], [address] [place] [address]Wchyavgfbd (Bld) [Mass/Vol]6.7 g/dLCritically low13.0-17.0 [facility] HospitalComment on above:Performed By: #### MARVA, , BMP, 2776-02 ####[facility] ([id number])[address] [address]Vgirireuwps (Bld) [#/Vol]1.6 10*3/uLNormal1.0-3.5ProMedica [facility] HospitalComment on above:Performed By: #### MARVA, , BMP, 2776- ####[facility] ([id number])[address] [address], [place] [address]Jriymiipixa/100 WBC (Bld)25.8 %NormalProMedica Ward HospitalComment on above:Performed By: #### MARVA, , BMP, 2776- ####[facility] ([id number])[address], [address] [place] [address]CVF (RBC) [Entitic mass]33.0 ogRalvex08-86OycZyibvx Ward HospitalComment on above:Performed By: #### MARVA, , BMP, 2776- ####[facility] ([id number])[address], [address], [place] [address]MVIO (RBC) [Mass/Vol]33.3 g/yVMmwscl53-16UisAxiooa Ward HospitalComment on above:Performed By: #### MARVA, , BMP, 2776-02 ####[facility] ([id number])[address], [address] [place] [address]HKX (RBC) [Entitic vol]99 bDVwyfvq82-183 [facility] HospitalComment on above:Performed By: #### MARVA, , BMP, 2776-02 ####[facility] ([id number])[address], [address] [place] [address]Lzvgjsztv (Bld) [#/Vol]0.7 10*3/uLNormal0-0.9[facility] HospitalComment on above:Performed By: #### MARVA, , BMP, 2776- ####[facility] ([id number])[address], [address] [place] [address] 96762Xgqcumfwu/100 WBC (Bld)11.6 %NormalProMedica Ward HospitalComment on above:Performed By: #### CBCRachel, , BMP, 2776- ####[facility] ([id number])[address], [address] [place] [address] 80419Nuyhkyfpmna/100 WBC (Bld)59.6 %NormalProMedica Ward HospitalComment on above:Performed By: #### CBCRachel, , BMP, 2776- ####[facility] ([id number])[address], [address] [place] [address] 83954Egrlaoef mean volume (Bld) [Entitic vol]10.1 fLNormal7-12[facility] CenterComment on above:Performed By: #### MARVA, , BMP, 2776- ####[facility] ([id number])[address], [address] [place] [address] 23823Roseyzjld (Bld) [#/Vol]75 10*3/oXBsc965-202 ProMC[facility] HospitalComment on above:Performed By: #### MARVA, , BMP, 2776- ####[facility] ([id number])[address], [address] [place] [address] 50267MXW COUNT2.05 X10E12/LLow4.10-5.70[facility] Comment on above:Performed By: #### MARVA, 45638-9, BMP, 2776- ####[facility] ([id number])[address], [address] [place] [address] 54306APL (Bld) [#/Vol]6.2 10*3/uLNormal4.0-11.0ProAkron Children'S HospitalComment on above: Performed By: #### MARVA, , BMP, 2776- ####[facility] ([id number])[address], [address] [place] [address] 24754DUO auto differentialon 56-53-5974Lltfjherq (Bld) [#/Vol]0.1 10*3/uLProMedica Health SystemBasophils/100 WBC (Bld)1 %[facility] Health SystemEosinophils (Bld) [#/Vol]0.1 10*3/uL [facility] SystemEosinophils/100 WBC (Bld)2 %[facility] Erythrocyte distribution width (RBC) [Ratio]19.3 %High11.5 - 15.0 %[facility] CenterHematocrit (Bld) [Volume fraction]20.3 %Low39 - 49 %[facility] CenterHemoglobin (Bld) [Mass/Vol]6.7 g/dLCritically low13.0 - 17.0 g/dL [facility] CenterInterpretation and review of laboratory resultsAbnormal [facility] Medical CenterLymphocytes (Bld) [#/Vol]1.6 10*3/[facility]intLymphocytes/100 WBC (Bld)25.8 %[facility] HospitalH (RBC) [Entitic mass]33 pg27 - 34 [facility] HospitalMCHC (RBC) [Mass/Vol]33.3 g/dL32 - 36 g/dLOhioHealth Grant Medical CenterMCV (RBC) [Entitic vol]99 fL80 - 100 [facility] CenterMonocytes (Bld) [#/Vol]0.7 10*3/[facility] Monocytes/100 WBC (Bld)11.6 %[facility] Medical CenterNeutrophils (Bld) [#/Vol]3.7 10*3/[facility]intNeutrophils/100 WBC (Bld)59.6 %[facility] Medical CenterPlatelet mean volume (Bld) [Entitic vol]10.1 fL7 - 12 [facility] CenterPlatelets (Bld) [#/Vol]75 10*3/[facility] HospitalRBC (Bld) [#/Vol]2.05 10*6/[facility] HospitalWBC corrected for nucl RBC Auto (Bld) [#/Vol]6.2PNew Lifecare Hospitals of PGH - Alle-KiskiClinical Pathology Blood Smear Reviewon [id number] Pathology Blood Smear ReviewNoal St. Rita's HospitalComment on above:Result Comment: [facility] [address] [place] [place] [address] Clinical Pathology ReportPatient Name:BRIAN MANDEL:1950 (Age: 74)Gender:MTaken:03/16/2024Reported:03/20/2024Physician(s):Ale Bowser M.D.Copy To: Rec. #:[id number]: #[id number] Pathologic DiagnosisPERIPHERAL BLOOD:- Normochromic, normocytic anemia- No significant abnormalities of leukocytes-Thrombocytopenia with no significant abnormalities of plateletsCOMMENT:If other causes are excluded, features are most consistent with anemia of chronic disease / systemic illness. The thrombocytopenia is most likely due to reactive causes (immune). Large platelets are seen and this is supportive. Clinical correlation is recommended.MICROSCOPIC:The red cells are decreased in number and are normochromicand normocytic with mild anisopoikilocytosis and increased polychromasia.Leukocytes are normal in number, consisting predominantly of segmented neutrophils with fewer numbers of lymphocytes and monocytes. Platelets are normal in morphology and appear decreased in number. Report Electronically Signed Outrxd/03/20/2024Alexander Hector MDInterpretation performed at [employer], [address] [place] [address], License number: [id number].Clinical NimgatrD79.9 BLOOD SMEAR EVALUATIONCBC (03/16/2024 0553): WBC = 6.2 X10E9/L; HGB = 6.7 g/dL; HCT = 20.3%; MCV = 99 fL; PLT = 75 X10E9/LSpecimen(s) Received Blood Smear ReviewFee Codes(s):1; 99783Sddghkfkcy RBC:Number of Units: 1on 75-86-0057NF Type Dkjuwty7365YwpCihwxyOhioHealth Grant Medical Center Blood component jhtiI7303T27MspSnlfgwOhioHealth Grant Medical CenterCrossmatchCompatibleOhioHealth Grant Medical CenterExpiration [id number] Health SystemStatus of unit TRANSFUSEDOhioHealth Grant Medical CenterUn ABOCity HospitalUnit number [id number] Health SystemUnit RHPositiveLehigh Valley Hospital - PoconoGlucose Glucometer (BldC) [Mass/Vol]on 65-10-6411Nicawry [Mass/Vol]303 mg/gBYdpt97 - 99 mg/dLOhioHealth Grant Medical CenterInterpretation and review of laboratory resultsAbnoKensington HospitalGlucose [Mass/Vol]303 mg/gDNfnu38-50WpdMtxmxzSt. Rita's HospitalGlucose [Mass/Vol]288 mg/mHAbhx88 - 99 mg/dLOhioHealth Grant Medical CenterInterpretation and review of laboratory resultsAbnoKensington HospitalGlucose [Mass/Vol]288 mg/sHQqsi52-10CtoOycvqqSt. Rita's HospitalGlucose [Mass/Vol]116 mg/mWVfyq58 - 99 mg/dLOhioHealth Grant Medical CenterInterpretation and review of laboratory resultsAbnoKensington HospitalGlucose [Mass/Vol]116 mg/pKQyxr46-75LhkSznhjsSt. Rita's HospitalGlucose [Mass/Vol]93 mg/dL65 - 99 mg/dLTorrance State Hospital Glucose [Mass/Vol]93 mg/eJUgfsdx17-00BpgTiwciqSt. Rita's HospitalHGB AND HCTon 01-82-3879Bvkgcpnqbj (Bld) [Volume fraction]27.4 %Rcf16-06KfkVhbixhOhioHealth Grant Medical CenterComment on above:Performed By: #### HH ####[facility] ([id number])[address] [facility], [address] [place] [address]Oytrwbwgik (Bld) [Mass/Vol] 9.3 g/dLLow13.0-17.0OhioHealth Grant Medical CenterComment on above:Performed By: #### HH ####[facility] ([id number])[address] [facility], [address] [place] [address] 010[address]Adfjznutxtmca 50-39-2970Eecgiwmyfju Nephelometry [Mass/Vol]163 mg/dL32 - 228 mg/dLOhioHealth Grant Medical CenterHaptoglobin Nephelometry [Mass/Vol]on 03-52-1704BLRCCTEHXGJ848 mg/xHYcpxov34-678BfnVaixlpSt. Rita's HospitalComment on above:Performed By: #### 42775-0, 1974-03 ####[facility] ([id number])[address] [facility], [address] [place] [address] 35884Didkbiteda and hematocrit, bloodon 93-04-5170Fnwaiumfmupiei and review of laboratory resultsAbnormal [facility] SystemIonized magnesiumon 03-16-2024 Magnesium Ionized ISE (Bld) [Moles/Vol]0.63 mmol/L0.45 - 0.74 mmol/LProMedica University [facility] SystemLaboratory - Chemistry and Chemistry - challengeon 03-16-2024 Phosphate [Mass/Vol]2.8 mg/dLNormal2.4-4.9ProUniversity Hospitals Health System SystemComment on above:Performed By: #### 2777-1 ####[facility] ([id number])0 [facility], [address] [place] [address] 03799ERUIMJYIPvg 03-16-2024 Magnesium [Mass/Vol]1.4 mg/dLLow1.8-2.6ProAkron Children'S HospitalComment on above:Performed By: #### CBCA, 54646-4, BMP, 2777-1 ####[facility] ([id number])0 [facility], [address] [place] [address] 40096Lycmapkxqdx 03-16-2024 Magnesium [Mass/Vol]1.4 mg/dLLow1.8 - 2.6 mg/dLOhioHealth Grant Medical CenterMagnesium Ionized ISE (Bld) [Moles/Vol]on 20-20-7104AovBtbyvo Health SystemMagnesium [Moles/Vol]0.63 mmol/LNormal0.45-0.74ProAkron Children'S HospitalComment on above: Result Comment: NEW REFERENCE RANGEPerformed By: #### 70125-4 ####[facility] ([id number])0 [facility], [address] [address]Ej Panel Informationon 08-64-8832CblSwlhqw Health SystemInterpretation and review of laboratory resultsAbnormalProUniversity Hospitals Health System SystemProMedica Health System PHOSPHORUSon 48-75-2108Eirlyknvh [Mass/Vol]2.0 mg/dLLow2.4-4.9St. Rita's HospitalComment on above:Performed By: #### CBCA, 26466-2, BMP, 2777-1 ####[facility] ([id number])[address] [place] [address], [address] [place], [place] [address]Pathologist review Pathologist comment (Flavio) [Interp]on 28-79-3959BRRHU REVIEWNOTENormalProAkron Children'S HospitalComment on above:Result Comment: [employer] [facility] [address] [place] [address] Clinical Pathology ReportPatient Name:BRIAN MANDEL:1950 (Age:74)Gender:MTaken:03/16/2024Reported:03/20/2024Physician(s):Ale Bowser M.D.Copy To: Rec. #:[id number]:#[id number] Pathologic DiagnosisPERIPHERAL BLOOD:- Normochromic, normocytic anemia- No significant abnormalities of leukocytes-Thrombocytopenia with no significant abnormalities of plateletsCOMMENT:If other causes are excluded, features are most consistent withanemia of chronic disease / systemic illness. The thrombocytopeniais most likely due to reactive causes (immune). Large platelets areseen and this is supportive. Clinical correlation is recommended.MICROSCOPIC:The red cells are decreased in number and are normochromic andnormocytic with mild anisopoikilocytosis and increased polychromasia.Leukocytes are normal in number, consisting predominantly ofsegmented neutrophils with fewer numbers of lymphocytes andmonocytes. Plat elets are normal in morphology and appear decreased innumber. Report Electronically Signed Outrxd/03/20/2024Alexander Hector MDInterpretation performed at [employer], [address] [place] [address], License number: [id number].Clinical PutlqxbX36.9 BLOOD SMEAR EVALUATIONCBC (53): WBC = 6.2 X10E9/L; HGB = 6.7 g/dL; HCT =20.3%; MCV = 99 fL; PLT = 75 X10E9/LSpecimen(s) ReceivedBlood Smear ReviewFee Codes(s):1; 559[address]Jrkjupbgh By: #### CBCA, 82086-6, BMP, 2777-1 ####[facility] ([id number])[address] [place] [address] [place], [place] [address]Phosphate [Mass/Vol]on 48-64-0259TobEhyffqOhioHealth Grant Medical CenterPhosphoruson 05-02-5006Plodegwbz [Mass/Vol]2 mg/dLLow2.4 - 4.9 mg/dLOhioHealth Grant Medical CenterRF Less than 1 houron 03-16-2024 Radiology Study observation (narrative)[facility] Centerurgical Pathology on 37-29-5873Konxlzis PathologyNormalSt. Rita's HospitalComment on above: Result Comment: [facility] [address] [place] [address] Surgical Pathology ConsultationPatient Name:BRIAN MANDEL:1950 (Age: 73)Gender:MTaken:03/16/2024Reported:03/22/2024Physician(s):Piero Dumont MD ([phone])Copy To: Rec. #:[id number]: #[id number] YuxadvqiyV69 bone core biopsy: Benign trabecular bone with focal bone marrow fibrosis and changes suggestive of fracture site. Maturing trilinear bone marrow hematopoiesis. No granuloma orneoplasm. See comment.Comment: Immunohistochemistry (with appropriate controls) for AE1/AE3 is negative, ruling out of the possibility of occult carcinoma. Report Electronically Signed Outzenobiak/03/22/2024Duran Hussein MDInterpretation performed at [facility], [address] [place] [address], License number: [id number].Clinical HistoryCompression fracture.Gross DescriptionReceived in formalin labeled TEQUILA, T12 bone biopsy is a quiñonez- brown cylindrical portion of bone, 1.1 cm in length and 0.2 cm in diameter. The segment of bone is submitted entirely in a single cassette following decalcification in Rapid-Lonnie [employer]. (1, ns, P65-7218, m1) JKHFixation time:Time specimen extracted: 1453Time specimen placed in formalin: 1453Cold Ischemic time: Less than 1 minuteTotal fixation time: 75 hours 30 minuteselba general hospital/03/19/2024GRSpecimen(s) Received T 12 bone biopsyFee Codes(s):1; 883 07, 01192, 70904Vgpg and screen(includes indirect delfin)on 99-49-0288DCPWTogus VA Medical CenterRh Nom (Bld)PositiveTorrance State HospitalBASIC METABOLIC PANLon 05-02-6285Jeptz gap [Moles/Vol]5 mmol/L Normal5-15ProCommunity Memorial Hospital HospitalComment on above:Performed By: #### ANGLE, 2776-02, , CBCA ####[facility] ([id number])[address], [address], [place] [address]Xtqtyri [Mass/Vol]8.4 mg/dLLow8.5-10.5PPeoples Hospital HospitalComment on above:Performed By: #### ANGLE, 2776-02, , CBCA ####[facility] ([id number])[address], [address], [place] [address]Xohdirfv [Moles/Vol]105 mmol/LTjxhhw79-201HhaMpmodw [place] HospitalComment on above:Performed By: #### ANGLE, 2776-02, , CBCA ####[facility] ([id number])[address], [address], [place] [address]WT9 [Moles/Vol] 29 mmol/ZZwkxbx40-55NrkYlegug [place] HospitalComment on above:Performed By: #### ANGLE, 2776-02, , CBCA ####[facility] ([id number])0 [address] [address] [place] [address]Gzkxoqxusb [Mass/Vol]0.87 mg/dLNormal 0.60-1.30ProMedica Paynesville HospitalComment on above:Result Comment: METHOD TRACEABLE TO IDMS STANDARDPerformed By: #### ANGLE, 2776-02, , CBCA ####[facility] ([id number])0 [address] [address], [place] [address]KQJ/1.73 sq M.predicted among non-blacks MDRD (S/P/Bld) [Vol rate/Area]90 mL/min/{1.73_m2}Normal>59ProMedica Ward HospitalComment on above:Result Comment: Reported eGFR is based on theCKD-EPI 2020 equation that doesnot use a race coefficient.Performed By: #### ANGLE, 2776-02, , CBCA ####[facility] ([id number])[address] [address] [place] [address] Glucose [Mass/Vol]109 mg/gRVljc60-43YkyShramz [place] HospitalComment on above: Performed By: #### ANGLE, 2776-02, , CBCA ####[facility] ([id number])[address] [address]Xtlssipki [Moles/Vol]4.1 mmol/LNormal3.5-5.0ProMedica Paynesville HospitalComment on above:Performed By: #### ANGLE, 2776-02, , CBCA ####[facility] ([id number])[address] [address]Rotupp [Moles/Vol]139 mmol/JKesegn367-560 [facility] Ward HospitalComment on above:Performed By: #### ANGLE, 2776-02, , CBCA ####[facility] ([id number])[address], [address] [place] [address]Jttg nitrogen [Mass/Vol]12 mg/dLNormal5-27ProCommunity [facility] Hospital HospitalComment on above:Performed By: #### ANGLE, 2776-02, , CBCA ####[facility] ([id number])[address], [address] [place] [address]Ovdbu Metabolic Panelon 74-76-5439Uknmf gap [Moles/Vol]5 mmol/L5 - 15 mmol/LPrWest Springs Hospital Health SystemCalcium [Mass/Vol]8.4 mg/dLLow8.5 - 10.5 mg/dL [facility] Health SystemChloride [Moles/Vol]105 mmol/L98 - 109 mmol/LProMedbaptist medical center east Health SystemCO2 [Moles/Vol]29 mmol/L22 - 32 mmol/LProMedbaptist medical center east Health System Creatinine [Mass/Vol]0.87 mg/dL0.60 - 1.30 mg/dLSelect [facility]ty [facility], Inc SystemeGFR (CKD-EPI)non-race jzovnihmw71- PINFPMary Bird Perkins Cancer Center Health SystemGlucose [Mass/Vol]109 mg/vMHrxb78 - 99 mg/dLSelect Medical Specialty [facility], Inc SystemPotassium [Moles/Vol]4.1 mmol/L3.5 - 5.0 mmol/LProMedbaptist medical center east Health SystemSodium [Moles/Vol]139 mmol/L134 - 146 mmol/L [facility] SystemUrea nitrogen [Mass/Vol]12 mg/dL5 - 27 mg/dLSelect [facility]ty [facility], Inc SystemCBC AND AUTO DIFFon 49-18-6538TJXTJVUP BASOPHIL0.1 X10E9/LNormal 0.0-0.2PMercy Health St. Anne HospitalComment on above:Performed By: #### ANGLE, 2776-02, , CBCA ####[facility] ([id number])[address], [address] [place] [address]XTVWHVMC NEUTROPHIL2.9 X10E9/LNormal1.5-6.6ProMedica Ward HospitalComment on above:Performed By: #### ANGLE, 2776-02, , CBCA ####[facility] ([id number])[address], [address], [place] [address]Clupfdlry/100 WBC (Bld)1.1 %NormalProMedica Ward HospitalComment on above:Performed By: #### ANGLE, 2776-02, , CBCA ####[facility] ([id number])[address], [address], [place] [address]Xefmxnrsdtn (Bld) [#/Vol]0.1 10*3/uLNormal0.0-0.4ProMedica Ward HospitalComment on above: Performed By: #### ANGLE, 2776-02, , CBCA ####[facility] ([id number])[address], [address], [place] [address]Uaksdtoezzk/100 WBC (Bld) 1.9 %NormalProMedica Ward HospitalComment on above:Performed By: #### ANGLE, 2776-02, , CBCA ####[facility] ([id number])[address], [address], [place] [address]Gsavmsfoieu distribution width (RBC) [Ratio]19.6 %High11.5-15.0ProMedica Ward HospitalComment on above:Performed By: #### ANGLE, 2776-02, , CBCA ####[facility] ([id number])[address], [address], [place] [address]Harodzypnj (Bld) [Volume fraction]21.8 %Hyu23-39 [facility] Ward HospitalComment on above:Performed By: #### ANGLE, 2776-02, , CBCA ####[facility] ([id number])[address], [address] [place] [address]Vzfpmnszwj (Bld) [Mass/Vol]7.4 g/dLLow13.0-17.0Pro[facility] Hospital HospitalComment on above:Performed By: #### ANGLE, 2776-02, , CBCA ####[facility] ([id number])[address], [address] [place] [address]Poenxrhhbgi (Bld) [#/Vol]1.5 10*3/uLNormal1.0-3.5PThe NeuroMedical Centerica [facility] Comment on above:Performed By: #### ANGLE, 2776-02, , CBCA ####[facility] ([id number])[address], [address] [place] [address] Lymphocytes/100 WBC (Bld)27.7 %NormalProCommunity Memorial Hospital HospitalComment on above: Performed By: #### ANGLE, 2776-02, , CBCA ####[facility] ([id number])[address], [address] [place] [address]FQV (RBC) [Entitic mass] 33.5 utSzaxra76-70InzDevohe [place] HospitalComment on above:Performed By: #### ANGLE, 2776-02, , CBCA ####[facility] ([id number])[address], [address] [place] [address]ZUKM (RBC) [Mass/Vol]33.8 g/mQVgvldt37-97 [facility] HospitalComment on above:Performed By: #### ANGLE, 2776-02, , CBCA ####[facility] ([id number])[address], [address] [place] [address]QRM (RBC) [Entitic vol]99 xXInieij94-950ByvOufwfk [place] HospitalComment on above:Performed By: #### ANGLE, 2776-02, 44517-4, CBCA ####[facility] ([id number])[address], [address], [place] [address]Whjbdrajv (Bld) [#/Vol]0.7 10*3/uLNormal0-0.9[facility] Comment on above:Performed By: #### ANGLE, 2776-02, , CBCA ####[facility] ([id number])[address], [address] [place] [address] Monocytes/100 WBC (Bld)13.2 %NormalProRegional Medical Centerca [place]ville HospitalComment on above: Performed By: #### ANGLE, 2776-02, , CBCA ####[facility] ([id number])[address], [address], [place] [address]Multtfevzwl/100 WBC (Bld) 56.1 %NormalProCommunity Memorial Hospital HospitalComment on above:Performed By: #### ANGLE, 2776-02, , CBCA ####[facility] ([id number])[address], [address], [place] [address]Iyqcerdw mean volume (Bld) [Entitic vol]9.6 fL Normal7-12Pro[facility] HospitalComment on above:Performed By: #### ANGLE, 2776-02, , CBCA ####[facility] ([id number])[address], [address], [place] [address]Azzyuyhyl (Bld) [#/Vol]73 10*3/iYCvp358-642 [facility] HospitalComment on above:Performed By: #### ANGLE, 2776-02, , CBCA ####[facility] ([id number])[address], [address], [place] [address]RUB COUNT2.20 X10E12/LLow4.10-5.70[facility] Comment on above:Performed By: #### ANGLE, 2777-1, 55439-3, CBCA ####[facility] ([id number])[address], [address] [place] [address]MST (Bld) [#/Vol]5.2 10*3/uLNormal4.0-11.0St. [facility]'s HospitalComment on above: Performed By: #### ANGLE, 2777-, , CBCA ####[facility] ([id number])[address], [address] [place] [address]ACS auto differentialon 85-46-1907Fzrbganow (Bld) [#/Vol]0.1 10*3/uLOhioHealth Grant Medical CenterBasophils/100 WBC (Bld)1.1 %[facility] Medical CenterEosinophils (Bld) [#/Vol]0.1 10*3/uL [facility] CenterEosinophils/100 WBC (Bld)1.9 %[facility] Erythrocyte distribution width (RBC) [Ratio]19.6 %High11.5 - 15.0 %[facility] Medical CenterHematocrit (Bld) [Volume fraction]21.8 %Low39 - 49 %[facility] Medical CenterHemoglobin (Bld) [Mass/Vol]7.4 g/dLLow13.0 - 17.0 g/dLOhioHealth Grant Medical CenterInterpretation and review of laboratory resultsAbnormProtestant HospitalLymphocytes (Bld) [#/Vol]1.5 10*3/[facility] Lymphocytes/100 WBC (Bld)27.7 %[facility]ansfield HospitalH (RBC) [Entitic mass] 33.5 pg27 - 34 pgPAdena Fayette Medical CenterMCHC (RBC) [Mass/Vol]33.8 g/dL32 - 36 g/dLOhioHealth Grant Medical CenterMCV (RBC) [Entitic vol]99 fL80 - 100 [facility] CenterMonocytes (Bld) [#/Vol]0.7 10*3/uLOhioHealth Grant Medical Center Monocytes/100 WBC (Bld)13.2 %[facility] Medical CenterNeutrophils (Bld) [#/Vol]2.9 10*3/uLOhioHealth Grant Medical CenterNeutrophils/100 WBC (Bld)56.1 %[facility] Medical CenterPlatelet mean volume (Bld) [Entitic vol]9.6 fL7 - 12 [facility] SystemPlatelets (Bld) [#/Vol]73 10*3/[facility] SystemRBC (Bld) [#/Vol]2.2 10*6/[facility] HospitalWBC corrected for nucl RBC Auto (Bld) [#/Vol]5.2PNew Lifecare Hospitals of PGH - Alle-KiskiGlucose Glucometer (BldC) [Mass/Vol]on 93-05-0535Jqilcjm [Mass/Vol]138 mg/bILjsj09 - 99 mg/dL [facility] CenterInterpretation and review of laboratory resultsAbnormal [facility] State HospitalGlucose [Mass/Vol]138 mg/dLHigh 65-99St. [facility] HospitalGlucose [Mass/Vol]141 mg/iHZlqe04 - 99 mg/dL [facility] CenterInterpretation and review of laboratory resultsAbnormal [facility] HospitalGlucose [Mass/Vol]141 mg/dLHigh 65-99St[facility] HospitalGlucose [Mass/Vol]145 mg/uXFkat13 - 99 mg/dL [facility] CenterInterpretation and review of laboratory resultsAbnormal [facility] State HospitalGlucose [Mass/Vol]145 mg/dLHigh 65-99St[facility] HospitalGlucose [Mass/Vol]91 mg/dL65 - 99 mg/dLTorrance State HospitalGlucose [Mass/Vol]91 mg/vNVumhib18-67 [facility] HospitalMAGNESIUMon 49-56-4333Jujxmwwux [Mass/Vol]2.2 mg/dL Normal1.8-2.6St[facility] HospitalComment on above:Performed By: #### BMP, 2777-1, 78353-3, CBCA ####[facility] ([id number])[address], [address] [place] [address]Lihnutfwvtj 33-99-2436Xjezdlosv [Mass/Vol]2.2 mg/dL1.8 - 2.6 mg/dLSelect [facility]ty [facility], Inc SystemNo Panel Informationon 03-15-2024 Interpretation and review of laboratory resultsAbnoUPMC Children's Hospital of Pittsburgh System Pro[facility] Health SystemPHOSPHORUSon 59-06-8968Jfiqgnwiz [Mass/Vol]2.1 mg/dLLow 2.4-4.9St[facility] HospitalComment on above:Performed By: #### BMP, 2777-1, 37642-5, CBCA ####[facility] ([id number])[address] [facility], [address] [address]Ybkqbjfilcdj 94-06-1525Ximgjamxj [Mass/Vol]2.1 mg/dLLow 2.4 - 4.9 mg/dLSelect Medical [facility]ty [facility], Inc SystemVitamin D 25 hydroxyon 06-79-6058Vaifdty D+Metabolites [Mass/Vol]17.8 ng/mLLow30 - 100 ng/mLSelect Medical Specialty [facility], Inc System Vitamin D+Metabolites [Mass/Vol]on 11-00-7365Iflifkrllwwpph and review of laboratory resultsAbnoHighlands Medical Center Health SystemSelect [facility] Health SystemVITAMIN D 25 HYD TOT17.8 ng/nXEas77-343YxuTrppytAkron Children'S HospitalComment on above:Result Comment: Vitamin D status 25 [place] Vitamin D Deficiency <20 ng/mLInsufficiency 20-29 ng/mLSufficiency 30-100 ng/mLToxicity >100 ng/mLNOTE: A pediatric reference range has not beenestablished by the machine tool electrician of this kit.The [place] [employer] Pediatric[employer] recommendsa Vitamin D level of = or >20ng/mL in infantsand children.Performed By: #### 03379-4 ####[facility] ([id number])0 [facility], [address] [address]ZBGMU METABOLIC PANLon 26-52-6164Rgmhv gap [Moles/Vol]6 mmol/LNormal5-15[facility] Comment on above:Performed By: #### 2777-1, , CBCA, BMP ####[facility] ([id number])[address] [address] Calcium [Mass/Vol]8.9 mg/dLNormal8.5-10.5PPeoples Hospital HospitalComment on above:Performed By: #### 2777-1, , CBCA, BMP ####[facility] ([id number])[address], [address], [place] [address]Skrkcfjz [Moles/Vol] 108 mmol/EJjhyen46-845YemVqkyur [place] HospitalComment on above:Performed By: #### 2777-1, , CBCA, BMP ####[facility] ([id number])[address], [address], [place] [address]ZG9 [Moles/Vol]26 mmol/L Ulxqqi66-51BkhUhsrgd [place] HospitalComment on above:Performed By: #### 2777-1, , CBCA, BMP ####[facility] ([id number])[address] [address] [place] [address]Zoitebvzjr [Mass/Vol]0.75 mg/dLNormal0.60-1.30ProAkron Children'S HospitalComment on above:Result Comment: METHOD TRACEABLE TO IDMS STANDARDPerformed By: #### 2777-1, , CBCA, BMP ####[facility] ([id number])[address], [place] [address]sQDL (CKD-EPI) NON-RACE DEPENDENT>90Normal>59ProAkron Children'S HospitalComment on above:Result Comment: Reported eGFR is based on theCKD-EPI 2020 equation that doesnot use a race coefficient.Performed By: #### 2777-1, 87103-2, CBCRachel, BMP ####[facility] ([id number])[address], [address] [place] [address] Glucose [Mass/Vol]81 mg/oJNoqxmd06-73PqkIwezui Pay[facility]ville HospitalComment on above: Performed By: #### 2777-1, , CBCRachel, BMP ####[facility] ([id number])[address], [address] [place] [address] 349[address]Fwpzeyyyw [Moles/Vol]4.8 mmol/LNormal3.5-5.0ProReg[facility] Centerca [place] HospitalComment on above:Performed By: #### 2777-1, , CBCRachel, BMP ####[facility] ([id number])[address], [address] [place] [address]3021Pbrzuu [Moles/Vol]140 mmol/CTodrsd570-906 ProMCleveland [facility] Hospital HospitalComment on above:Performed By: #### 2777-1, , CBCRachel, BMP ####[facility] ([id number])[address], [address] [place] [address]Kvhc nitrogen [Mass/Vol]10 mg/dLNormal5-27Pro[facility] Centerca [place] HospitalComment on above:Performed By: #### 2777-1, , CBCA, BMP ####[facility] ([id number])[address], [address] [place] [address] 36636Degvm Metabolic Panelon 30-81-4053Wjuai gap [Moles/Vol]6 mmol/L5 - 15 mmol/LProMedica Health SystemCalcium [Mass/Vol]8.9 mg/dL8.5 - 10.5 mg/dL [facility] SystemChloride [Moles/Vol]108 mmol/L98 - 109 mmol/LProMedica Health SystemCO2 [Moles/Vol]26 mmol/L22 - 32 mmol/LProMedica Health System Creatinine [Mass/Vol]0.75 mg/dL0.60 - 1.30 mg/dLOhioHealth Grant Medical CentereGFR (CKD-EPI)non-race dependent- PINFPFisher-Titus Medical [facility] SystemGlucose [Mass/Vol]81 mg/dL65 - 99 mg/dLOhioHealth Grant Medical CenterPotassium [Moles/Vol]4.8 mmol/L3.5 - 5.0 mmol/LPrWest Springs Hospital Health SystemSodium [Moles/Vol]140 mmol/L134 - 146 mmol/L [facility] SystemUrea nitrogen [Mass/Vol]10 mg/dL5 - 27 mg/dLOhioHealth Grant Medical CenterCBC AND AUTO DIFFon 06-17-5605NEMARYST BASOPHIL0.0 X10E9/LNormal 0.0-0.2PPeoples Hospital HospitalComment on above:Performed By: #### 2777-1, , CBCA, BMP ####[facility] ([id number])[address], [address] [place] [address] 54017KMLWGIUG NEUTROPHIL3.9 X10E9/LNormal1.5-6.6Pro[facility] HospitalComment on above:Performed By: #### 2777-1, , CBCA, BMP ####[facility] ([id number])[address], [address] [place] [address] 49208Svowwmmbu/100 WBC (Bld)0.7 %NormalProCommunity Memorial Hospital HospitalComment on above:Performed By: #### 2777-1, 32396-4, CBCA, BMP ####[facility] ([id number])[address], [address] [place] [address] 88679Bbehdjgqscm (Bld) [#/Vol]0.1 10*3/uLNormal0.0-0.4[facility] HospitalComment on above: Performed By: #### 2777-1, , CBCA, BMP ####[facility] ([id number])[address], [address] [place] [address] 62516Pgixahpewfk/100 WBC (Bld) 2.3 %NormalProMedica Paynesville HospitalComment on above:Performed By: #### 2777-, , CBCA, BMP ####[facility] ([id number])[address], [address] [place] [address] 48122Dhhpsqvoztb distribution width (RBC) [Ratio]19.8 %High 11.5-15.0ProMedica [place] HospitalComment on above:Performed By: #### 2777-Mitchell, , CBCA, BMP ####[facility] ([id number])[address], [address] [place] [address] 24615Zfisrtbxcp (Bld) [Volume fraction]27.2 %Cbr20-38 [facility] HospitalComment on above:Performed By: #### 277Selena-Mitchell, , CBCA, BMP ####[facility] ([id number])[address], [address] [place] [address] 94507Fdlcpgzspe (Bld) [Mass/Vol]9.1 g/dLLow13.0-17.0ProRegional Medical Centerca [place] HospitalComment on above:Performed By: #### 2777-, , CBCA, BMP ####[facility] ([id number])[address], [address] [place] [address] 05306Akepuqhagms (Bld) [#/Vol]1.5 10*3/uLNormal1.0-3.5[facility] Comment on above:Performed By: #### 2777-Mitchell, , CBCA, BMP ####[facility] ([id number])[address] [address] [place] [address] 73006 Lymphocytes/100 WBC (Bld)24.0 %NormalProMedica Paynesville HospitalComment on above: Performed By: #### 2777-, , CBCA, BMP ####[facility] ([id number])[address], [address] [place] [address] 15958ZKT (RBC) [Entitic mass] 33.3 ifUeyqpe82-41HamBmgjvp Ward HospitalComment on above:Performed By: #### 2777-, , CBCA, BMP ####[facility] ([id number])[address], [address] [place] [address] 25029KXTD (RBC) [Mass/Vol]33.5 g/aJUraesl91-25 [facility] HospitalComment on above:Performed By: #### 2777-, , CBCA, BMP ####[facility] ([id number])[address], [address] [place] [address] 23467OSF (RBC) [Entitic vol]99 aZQrzehb77-274VhbDdvtuc Ward HospitalComment on above:Performed By: #### 2777-, , CBCA, BMP ####[facility] ([id number])[address], [address] [place] [address] 27778Onmeebluu (Bld) [#/Vol]0.7 10*3/uLNormal0-0.9[facility] Comment on above:Performed By: #### 2777-, , CBCA, BMP ####[facility] ([id number])[address], [address] [place] [address] 04132 Monocytes/100 WBC (Bld)11.7 %NormalProMedica Ward HospitalComment on above: Performed By: #### 2777-, , CBCA, BMP ####[facility] ([id number])[address], [address] [place] [address] 94991Fiasohzanfr/100 WBC (Bld) 61.3 %NormalProMedica Ward HospitalComment on above:Performed By: #### 2777-1, , CBCA, BMP ####[facility] ([id number])[address], [address] [place] [address] 44948Awneeezl mean volume (Bld) [Entitic vol]11.0 fLNormal 7-12[facility] [place] HospitalComment on above:Performed By: #### 2777-1, , CBCA, BMP ####[facility] ([id number])[address], [address] [place] [address] 77871Jjewknenv (Bld) [#/Vol]82 10*3/zMPkm304-868CkzNrvmfc [place] HospitalComment on above:Performed By: #### 2777-1, , CBCA, BMP ####[facility] ([id number])[address], [address] [place] [address] 67871YBW COUNT2.74 X10E12/LLow4.10-5.70Pro[facility] HospitalComment on above:Performed By: #### 2777-1, , CBCA, BMP ####[facility] ([id number])[address], [address] [place] [address] 07059AZQ (Bld) [#/Vol]6.3 10*3/uLNormal4.0-11.0ProRegional Medical Centerca [place] HospitalComment on above:Performed By: #### 2777-1, , CBCA, BMP ####[facility] ([id number])[address], [address] [place] [address] 51127NKZ auto differentialon 95-48-0778Tniifliyf (Bld) [#/Vol]0 10*3/uLProMedica Health SystemBasophils/100 WBC (Bld)0.7 %[facility] Health SystemEosinophils (Bld) [#/Vol]0.1 10*3/uL [facility] SystemEosinophils/100 WBC (Bld)2.3 %[facility] Erythrocyte distribution width (RBC) [Ratio]19.8 %High11.5 - 15.0 %[facility] Medical CenterHematocrit (Bld) [Volume fraction]27.2 %Low39 - 49 %[facility] Medical CenterHemoglobin (Bld) [Mass/Vol]9.1 g/dLLow13.0 - 17.0 g/dLOhioHealth Grant Medical CenterInterpretation and review of laboratory resultsAbnormProtestant HospitalLymphocytes (Bld) [#/Vol]1.5 10*3/[facility] Lymphocytes/100 WBC (Bld)24 %[facility] Medical CenterMCH (RBC) [Entitic mass]33.3 pg27 - 34 [facility] HospitalMCHC (RBC) [Mass/Vol]33.5 g/dL32 - 36 g/dL [facility] CenterMCV (RBC) [Entitic vol]99 fL80 - 100 [facility] CenterMonocytes (Bld) [#/Vol]0.7 10*3/[facility]intMonocytes/100 WBC (Bld)11.7 %[facility] Medical CenterNeutrophils (Bld) [#/Vol]3.9 10*3/[facility]FlintNeutrophils/100 WBC (Bld)61.3 %[facility] Medical CenterPlatelet mean volume (Bld) [Entitic vol]11 fL7 - 12 [facility] CenterPlatelets (Bld) [#/Vol]82 10*3/uLOhioHealth Nelsonville Health CenterRBC (Bld) [#/Vol]2.74 10*6/uL [facility] CenterWBC corrected for nucl RBC Auto (Bld) [#/Vol]6.3 [facility] State HospitalCobalamin (Vitamin B12) [Mass/Vol] on 60-86-2083ChcQuzfzpOhioHealth Grant Medical CenterFolateon 63-96-6861Tlckcd [Mass/Vol]17.1 ng/mL5.8 - PINF ng/mLOhioHealth Grant Medical CenterFolate [Mass/Vol]on 03-14-2024 [facility] CenterFOLIC ACID17.1 ng/mLNormal>5.8[facility] Comment on above:Result Comment: NEW REFERENCE RANGEPerformed By: #### 2132-9, 2284-8, FEPR ####[facility] ([id number])[address] [facility], [address] [place] [address] 76411Mfxlqlh Glucometer (BldC) [Mass/Vol]on 55-80-2406Anslxkp [Mass/Vol]118 mg/vEQrpi15 - 99 mg/dLSelect [facility] SystemInterpretation and review of laboratory resultsAbnoKensington HospitalGlucose [Mass/Vol]118 mg/rKFtik26-73EnzSuznczSt. Rita's HospitalGlucose [Mass/Vol]121 mg/lBDkmi17 - 99 mg/dLOhioHealth Grant Medical CenterInterpretation and review of laboratory resultsAbnoKensington HospitalGlucose [Mass/Vol]121 mg/aGPrhk78-92UdrFlbmurSt. Rita's HospitalGlucose [Mass/Vol]118 mg/sBVkiw24 - 99 mg/dLOhioHealth Grant Medical CenterInterpretation and review of laboratory resultsAbConemaugh Nason Medical CenterGlucose [Mass/Vol]118 mg/iWTddb88-78YmpVakbajSt. Rita's HospitalGlucose [Mass/Vol]94 mg/dL65 - 99 mg/dLTorrance State Hospital Glucose [Mass/Vol]94 mg/oGDqluvz35-37MrdPlhdamSt. Rita's HospitalGlucose [Mass/Vol] 92 mg/dL65 - 99 mg/dLTorrance State HospitalGlucose [Mass/Vol]92 mg/zWYldlxi30-08EulVkeszqSt. Rita's HospitalIRON PROFILEon 03-14-2024 Iron [Mass/Vol]94 ug/qWHphifx39-309ZyaDdmwbzSt. Rita's HospitalComment on above: Performed By: #### 2132-9, 2284-8, FEPR ####[facility] ([id number])[address] [facility], [address] [place] [address] 05514IOTT CPJXHUX046 ug/dLLow 250-425Pro[facility] HospitalComment on above:Performed By: #### 2132-9, 2284-8, FEPR ####[facility] ([id number])[address], [address] [place] [address] 74161MDFB UEBPKLSEFQ84 % RDIKMBIDPBQdlcab19-44BlkUlwypg [place] HospitalComment on above:Performed By: #### 2132-9, 2284-8, FEPR ####[facility] ([id number])[address], [address] [place] [address] 64676Qouv and TIBCon 71-47-3939Ftxrtfnodqpqbz and review of laboratory resultsAbnormal [facility] Health SystemIron [Mass/Vol]94 ug/dL50 - 212 ug/dLProMedica Health SystemIron binding capacity [Mass/Vol]213 ug/uHJua966 - 425 ug/dLProMedica Health SystemIron saturation [Mass fraction]44Pro[facility] Health SystemProMedica Health SystemMAGNESIUMon 49-60-7670Dkdhepuvx [Mass/Vol]1.8 mg/dLNormal1.8-2.6 [facility] Hospitala [place] HospitalComment on above:Performed By: #### 49645-8 ####[facility] ([id number])[address], [address] [place] [address] 68256 Magnesium [Mass/Vol]1.7 mg/dLLow1.8-2.6[facility] HospitalComment on above:Performed By: #### 2777-1, 24941-3, CBCA, BMP ####[facility] ([id number])[address], [address] [place] [address] 36074Nfxgsmgtikh 03-14-2024 Magnesium [Mass/Vol]1.8 mg/dL1.8 - 2.6 mg/dLProMedica Health SystemMagnesium [Mass/Vol]1.7 mg/dLLow1.8 - 2.6 mg/dLProMedica Health SystemMagnesium [Mass/Vol] on 62-25-0777JbvQcxiti Health SystemInterpretation and review of laboratory resultsAbnormalProAdams County Regional Medical CenterNo Panel Informationon 79-06-0562OemIldnarAdams County Regional Medical CenterPHOSPHORUSon 72-68-4827Hybkverpc [Mass/Vol]2.5 mg/dLNormal2.4-4.9 [facility] HospitalComment on above:Performed By: #### 2777-1, 57190-3, MARVA, BMP ####[facility] ([id number])[address], [address], [place] [address]Otafqhaoigcc 18-31-4771Ysisjovtr [Mass/Vol]2.5 mg/dL2.4 - 4.9 mg/dLOhioHealth Grant Medical CenterVITAMIN B12on 13-39-0626Biifwjpxe (Vitamin B12) [Mass/Vol]420 pg/pEKrhhai947-708XldUzyvtd [place] HospitalComment on above: Performed By: #### 2132-9, 2284-8, FEPR ####[facility] ([id number])[address], [address], [place] [address]Eehoysk B12on 03-14-2024 Cobalamin (Vitamin B12) [Mass/Vol]420 pg/mL180 - 914 pg/mLOhioHealth Grant Medical CenterBASIC METABOLIC PANLon 19-27-2484Ikhlm gap [Moles/Vol]5 mmol/LNormal5-15 [facility] Medical CenterComment on above:Performed By: #### ANGLE, 88534-7, CBCRachel, 2777-1 ####[facility] ([id number])[address], [address], [place] [address]Cihtykb [Mass/Vol]8.3 mg/dLLow8.5-10.5PAdena Fayette Medical Center Comment on above:Performed By: #### ANGLE, 55169-4, MARVA, 2777-1 ####[facility] ([id number])[address], [address], [place] [address] Chloride [Moles/Vol]108 mmol/BVttzag61-720YxrXzjzacOhioHealth Grant Medical CenterComment on above:Performed By: #### ANGLE, , CBCA, 2776- ####[facility] ([id number])[address], [address], [place] [address]QF6 [Moles/Vol]26 mmol/TNmgfyc08-18ZabDmongq Health SystemComment on above:Performed By: #### ANGLE, , CBCRachel, 2776- ####[facility] ([id number])[address], [address], [place] [address]Hcqcqoclhi [Mass/Vol]0.82 mg/dLNormal0.60-1.30 [facility] SystemComment on above:Result Comment: METHOD TRACEABLE TO IDMS STANDARDPerformed By: #### ANGLE, , CBCA, 2776- ####[facility] ([id number])[address], [address], [place] [address]Bqnuwpn [Mass/Vol]92 mg/oICvybnc52-06VypAuvgoi Health SystemComment on above:Performed By: #### ANGLE, , CBCA, 2776- ####[facility] ([id number])[address], [address], [place] [address]Vdwkmldaq [Moles/Vol]4.4 mmol/LNormal3.5-5.0ProUniversity Hospitals Health System SystemComment on above:Performed By: #### ANGLE, , CBCA, 2776-02 ####[facility] ([id number])[address], [address], [place] [address]Dmtynb [Moles/Vol]139 mmol/QDlmtxa019-331 [facility] SystemComment on above:Performed By: #### ANGLE, 74590-0, CBCA, 277- ####[facility] ([id number])[address], [address], [place] [address]Elhs nitrogen [Mass/Vol]11 mg/dLNormal5-27ProUniversity Hospitals Health System SystemComment on above:Performed By: #### ANGLE, 26175-1, CBCA, 2777-1 ####[facility] ([id number])[address] [address]zGRT (CKD-EPI) NON-RACE DEPENDENT>90Normal>59ProAkron Children'S HospitalComment on above:Result Comment: Reported eGFR is based on theCKD-EPI 2020 equation that doesnot use a race coefficient.Performed By: #### ANGLE, 04612-6, CBCRachel, 2777- ####[facility] ([id number])[address] [address]Qtdxs Metabolic Panelon 39-31-1107jNPA (CKD-EPI)non-race dependent- PINF [facility] SystemCBC AND AUTO DIFFon 70-89-5440Gvqcgkypb/100 WBC (Bld)0.7 %NormalProUniversity Hospitals Health System SystemComment on above:Performed By: #### ANGLE, , CBCA, 2777- ####[facility] ([id number])[address] [address]Fmhpwjhbptj (Bld) [#/Vol]0.1 10*3/uLNormal0.0-0.4ProUniversity Hospitals Health System SystemComment on above:Performed By: #### ANGLE, , CBCA, 277- ####[facility] ([id number])[address] [address]Nytptsqrcct/100 WBC (Bld)2.2 %NormalProUniversity Hospitals Health System SystemComment on above:Performed By: #### ANGLE, 60079-7, CBCA, 2777- ####[facility] ([id number])[address] [address]Hfdtfbcwhcu distribution width (RBC) [Ratio]19.5 %High11.5-15.0ProRegional Medical Centerca Health System Comment on above:Performed By: #### ANGLE, 11731-8, CBCA, 2777-1 ####[facility] ([id number])[address] [address] Hemoglobin (Bld) [Mass/Vol]7.5 g/dLLow13.0-17.0[facility] SystemComment on above:Performed By: #### ANGLE, 72567-6, CBCA, 2776- ####[facility] ([id number])[address], [address], [place] [address]Yezdwgerjzq (Bld) [#/Vol]1.4 10*3/uLNormal1.0-3.5PFisher-Titus Medical Center SystemComment on above: Performed By: #### ANGLE, 25240-8, CBCA, 277- ####[facility] ([id number])[address] [address], [place] [address]Wfcqagurgml/100 WBC (Bld) 24.5 %NormalSelect Medical Specialty [facility] SystemComment on above:Performed By: #### ANGLE, 19368-2, CBCA, 277- ####[facility] ([id number])[address], [address], [place] [address]GCE (RBC) [Entitic mass]33.3 lmWwljhe59-19 [facility] SystemComment on above:Performed By: #### ANGLE, 96891-9, CBCA, 277- ####[facility] ([id number])[address], [address], [place] [address]WRY (RBC) [Entitic vol]98 aOQkapcu22-995BgmTaukpe Health SystemComment on above:Performed By: #### ANGLE, 58580-7, CBCA, 2777-1 ####[facility] ([id number])[address] [address] Monocytes (Bld) [#/Vol]0.6 10*3/uLNormal0-0.9[facility] SystemComment on above:Performed By: #### ANGLE, 35219-0, CBCA, 2776- ####[facility] ([id number])[address], [address] [place] [address] 47805Nmypymyld/100 WBC (Bld)10.7 %NormalSelect Medical Specialty [facility] SystemComment on above:Performed By: #### ANGLE, 63022-5, CBCA, 2776- ####[facility] ([id number])[address], [address] [place] [address] 96227Vsdjlasoafw/100 WBC (Bld)61.9 %NormalSelect Medical Specialty [facility] SystemComment on above:Performed By: #### ANGLE, 96873-5, CBCA, 2776- ####[facility] ([id number])[address], [address] [place] [address] 31782Wlrsrsdt mean volume (Bld) [Entitic vol]9.6 fLNormal7-12PFisher-Titus Medical Center SystemComment on above:Performed By: #### ANGLE, , CBCA, 2776-02 ####[facility] ([id number])[address] [address] [place] [address] Platelets (Bld) [#/Vol]93 10*3/hIPob857-464RwqYlwmxx Health SystemComment on above:Performed By: #### ANGLE, 62320-1, CBCA, 2776- ####[facility] ([id number])[address] [address] [place] [address]GWBKRZSM BASOPHIL0.0 X10E9/LNormal0.0-0.2PMercy Health St. Anne HospitalComment on above:Performed By: #### ANGLE, 41475-8, CBCA, 2776- ####[facility] ([id number])[address], [address] [place] [address] 64214XQHDMJVY NEUTROPHIL3.5 X10E9/LNormal1.5-6.6 ProMCleveland Clinic Euclid Hospital HospitalComment on above:Performed By: #### ANGLE, , CBCA, 2776- ####[facility] ([id number])[address], [address] [place] [address]37[address]Fdgdbgtvsb (Bld) [Volume fraction]22.0 %Crq78-39LskYxpzwl [place] HospitalComment on above:Performed By: #### ANGLE, , CBCA, 2776- ####[facility] ([id number])[address], [address] [place] [address] 38306TLTC (RBC) [Mass/Vol]34.0 g/uIFogufn50-25QieNzrmka [place] HospitalComment on above:Performed By: #### ANGLE, , CBCA, 2776- ####[facility] ([id number])[address], [address] [place] [address] 37679EXW COUNT2.25 X10E12/LLow4.10-5.70Pro[facility] HospitalComment on above:Performed By: #### ANGLE, , CBCA, 2777- ####[facility] ([id number])[address], [address] [place] [address] 77[address]BPZ (Bld) [#/Vol]5.6 10*3/uLNormal4.0-11.0 ProMCleveland Clinic Euclid Hospital HospitalComment on above:Performed By: #### ANGLE, , CBCA, 277- ####[facility] ([id number])[address], [address] [place] [address]OUC auto differentialon 51-78-2815Svfxdklex (Bld) [#/Vol]0 10*3/uLProMedica University [facility]als [facility] SystemHematocrit (Bld) [Volume fraction]22 %Low39 - 49 % [facility] SystemInterpretation and review of laboratory resultsAbnormal [facility] CenterMCHC (RBC) [Mass/Vol]34 g/dL32 - 36 g/dLOhioHealth Grant Medical CenterNeutrophils (Bld) [#/Vol]3.5 10*3/[facility]FlintRBC (Bld) [#/Vol]2.25 10*6/[facility] HospitalWBC corrected for nucl RBC Auto (Bld) [#/Vol]5.6[facility] State HospitalGlucose Glucometer (BldC) [Mass/Vol]on 66-75-2304Uuxuufk [Mass/Vol]104 mg/kVVtog25 - 99 mg/dL [facility] CenterInterpretation and review of laboratory resultsAbnormal [facility] HospitalGlucose [Mass/Vol]104 mg/dLHigh 65-99St. [facility] HospitalGlucose [Mass/Vol]172 mg/mEDpdi00 - 99 mg/dL [facility] CenterInterpretation and review of laboratory resultsAbnormal [facility] HospitalGlucose [Mass/Vol]172 mg/dLHigh 65-99St[facility] HospitalGlucose [Mass/Vol]114 mg/uPDzsb85 - 99 mg/dL [facility] CenterInterpretation and review of laboratory resultsAbnoal [facility] HospitalGlucose [Mass/Vol]114 mg/dLHigh 65-99St[facility] HospitalGlucose [Mass/Vol]123 mg/zEIjtj17 - 99 mg/dL [facility] CenterInterpretation and review of laboratory resultsAbnoal [facility] HospitalGlucose [Mass/Vol]123 mg/dLHigh 65-99[facility] HospitalLaboratory - Chemistry and Chemistry - challengeon 79-29-1039Bfkwggngk [Mass/Vol]1.7 mg/dLLow1.8-2.6[facility] Medical CenterComment on above:Performed By: #### BMP, 28969-6, CBCA, 2777-1 ####[facility] ([id number])[address] [address]Pwttwvexq [Mass/Vol]2.4 mg/dLNormal2.4-4.9[facility] Medical CenterComment on above: Performed By: #### ANGLE, 27684-6, MARVA, 2776-02 ####[facility] ([id number])[address] [address]Pk Panel Informationon 28-86-0238Utmaerhuwmjkop and review of laboratory resultsAbnormalOhioHealth Grant Medical CenterProAdams County Regional Medical CenterBASIC METABOLIC PANLon 21-59-7641sTCZ (CKD- EPI) NON-RACE DEPENDENT>90Normal>59ProAkron Children'S HospitalComment on above: Result Comment: Reported eGFR is based on theCKD-EPI 2020 equation that doesnot use a race coefficient.Performed By: #### MARVA, 2776-02, , BMP ####[facility] ([id number])[address] [address]Sgsvj gap [Moles/Vol]6 mmol/LNormal5-15[facility] SystemComment on above: Performed By: #### MARVA, 2776-02, , BMP ####[facility] ([id number])[address] [address]Dghomuy [Mass/Vol]8.3 mg/dL Low8.5-10.5PFisher-Titus Medical Center SystemComment on above:Performed By: #### MARVA, 2776-02, , BMP ####[facility] ([id number])[address] [address]Agvxacpl [Moles/Vol]110 mmol/MIahq06-871 [facility] SystemComment on above:Performed By: #### MARVA, 2776-02, , BMP ####[facility] ([id number])[address], [place] [address]CX8 [Moles/Vol]25 mmol/RAovayr20-83UucSewris Health System Comment on above:Performed By: #### MARVA, 2776-02, , BMP ####[facility] ([id number])[address] [place] [address] Creatinine [Mass/Vol]0.86 mg/dLNormal0.60-1.30[facility] SystemComment on above:Result Comment: METHOD TRACEABLE TO IDAL STANDARDPerformed By: #### MARVA, 2776-02, , BMP ####[facility] ([id number])[address], [place] [address]Utinblc [Mass/Vol]91 mg/ySGedaxa84-19BzzQmkntv Health SystemComment on above:Performed By: #### MARVA, 2776-02, , BMP ####[facility] ([id number])[address], [place] [address]Dcykcmepl [Moles/Vol]4.4 mmol/LNormal3.5-5.0ProUniversity Hospitals Health System SystemComment on above:Performed By: #### MARVA, 2776-02, , BMP ####[facility] ([id number])[address], [place] [address]Cnvlsx [Moles/Vol]141 mmol/QVwkclv762-054DnmSsmvdh Health SystemComment on above: Performed By: #### MARVA, 2776-02, , BMP ####[facility] ([id number])[address], [place] [address]Vivm nitrogen [Mass/Vol]14 mg/dLNormal5-27ProUniversity Hospitals Health System SystemComment on above:Performed By: #### MARVA, 2776-02, , BMP ####[facility] ([id number])[address], [place] [address]Vshqm Metabolic Panelon 01-86-1119nQJQ (CKD-EPI)non-race dependent- [facility] CenterCBC AND AUTO DIFFon 14-54-1545YQVTEKCV BASOPHIL0.0 X10E9/LNormal0.0-0.2PMercy Health [facility] Comment on above:Performed By: #### MARVA, 2776-02, , BMP ####[facility] ([id number])[address] [address] ABSOLUTE NEUTROPHIL3.7 X10E9/LNormal1.5-6.6ProAkron Children'S HospitalComment on above:Performed By: #### MARVA, 2776-02, , BMP ####[facility] ([id number])[address] [address], [address] [place] [address] 70640ANZ COUNT2.35 X10E12/L Low4.10-5.70ProAkron Children'S HospitalComment on above:Performed By: #### MAVRA, 2776-02, , BMP ####[facility] ([id number])[address], [address] [place] [address] 49848EHL (Bld) [#/Vol]5.9 10*3/uLNormal4.0-11.0 ProMedicOhioHealth Nelsonville Health CenterComment on above:Performed By: #### MARVA, 2776-02, , BMP ####[facility] ([id number])[address], [address] [place] [address] 54785Sqtqcpbmy/100 WBC (Bld)0.7 %NormalOhioHealth Grant Medical Center Comment on above:Performed By: #### MARVA, 2776-02, , BMP ####[facility] ([id number])0 [address], [address] [place] [address] 13479 Eosinophils (Bld) [#/Vol]0.1 10*3/uLNormal0.0-0.4[facility] SystemComment on above:Performed By: #### MARVA, 2776-02, , BMP ####[facility] ([id number])[address] [address]Varwuojliav/100 WBC (Bld)2.1 %NormalProUniversity Hospitals Health System SystemComment on above:Performed By: #### MARVA, 2776-02, , BMP ####[facility] ([id number])[address] [address]Vugemrusctj distribution width (RBC) [Ratio] 20.3 %High11.5-15.0ProUniversity Hospitals Health System SystemComment on above:Performed By: #### MARVA 2776-02, , BMP ####[facility] ([id number])[address] [address]Jvgarogxbx (Bld) [Volume fraction]23.2 %Low 39-49ProUniversity Hospitals Health System SystemComment on above:Performed By: #### MARVA, 2776-02, , BMP ####[facility] ([id number])[address] [address]Cgnxeoyxuf (Bld) [Mass/Vol]7.9 g/dLLow13.0-17.0[facility] SystemComment on above:Performed By: ###Carolyn DURHAM, 2776-02, , BMP ####[facility] ([id number])[address] [address]Afadhojhlzl (Bld) [#/Vol]1.4 10*3/uLNormal1.0-3.5PFisher-Titus Medical [facility] System Comment on above:Performed By: #### MARVA, 2776-02, , BMP ####[facility] ([id number])[address], [address] [place] [address] 25188 Lymphocytes/100 WBC (Bld)23.7 %NormalProMedica Health SystemComment on above: Performed By: #### MARVA, 2776-02, , BMP ####[facility] ([id number])[address], [address] [place] [address] 90359NUO (RBC) [Entitic mass] 33.5 ufQrompf73-90PtyPjtmjx Health SystemComment on above:Performed By: #### MARVA, 2776-02, , BMP ####[facility] ([id number])[address], [address] [place] [address] 55822ONWO (RBC) [Mass/Vol]33.9 g/bTJgqxuq51-98 Pro[facility]ica Health SystemComment on above:Performed By: #### MARVA, 2776-02, , BMP ####[facility] ([id number])[address], [address] [place] [address] 25174ULC (RBC) [Entitic vol]99 dNQztncu80-518PivUcpsqp Health SystemComment on above:Performed By: #### MARVA, 2776-02, , BMP ####[facility] ([id number])[address], [address] [address] Monocytes (Bld) [#/Vol]0.6 10*3/uLNormal0-0.9ProMedica Health SystemComment on above:Performed By: #### MARVA, 2776-02, , BMP ####[facility] ([id number])[address] [address]Cabjdlbap/100 WBC (Bld)9.9 %NormalProMedica Health SystemComment on above:Performed By: #### MARVA, 2776-02, , BMP ####[facility] ([id number])[address], [address] [place] [address] 83608Fsolhdiklds/100 WBC (Bld)63.6 %NormalOhioHealth Grant Medical CenterComment on above:Performed By: #### CBCRachel, 2776-02, , BMP ####[facility] ([id number])[address] [address]323Xmkuprpq mean volume (Bld) [Entitic vol]9.7 fLNormal7-12PFisher-Titus Medical [facility] SystemComment on above:Performed By: #### MARVA, , , BMP ####[facility] ([id number])[address] [address] Platelets (Bld) [#/Vol]98 10*3/pAPvo513-976BijWixzysOhioHealth Grant Medical CenterComment on above:Performed By: #### CBCRachel, 2776-02, , BMP ####[facility] ([id number])[address] 694[address]KSX auto differential on 68-20-0013Yrcczxwoq (Bld) [#/Vol]0 10*3/[facility] Interpretation and review of laboratory resultsAbnormProtestant Hospital Neutrophils (Bld) [#/Vol]3.7 10*3/[facility]intRBC (Bld) [#/Vol]2.35 10*6/[facility] HospitalWBC corrected for nucl RBC Auto (Bld) [#/Vol] 5.9[facility] State HospitalCBC without diffon 03-12-2024 Erythrocyte distribution width (RBC) [Ratio]20.6 %High11.5 - 15.0 %[facility] SystemHematocrit (Bld) [Volume fraction]22.4 %Low39 - 49 %ProMMadelia Community Hospital SystemHemoglobin (Bld) [Mass/Vol]7.5 g/dLLow13.0 - 17.0 g/dLOhioHealth Grant Medical CenterInterpretation and review of laboratory resultsAbnormalOhioHealth Grant Medical CenterMCH (RBC) [Entitic mass]32.9 pg27 - 34 [facility] MCHC (RBC) [Mass/Vol]33.3 g/dL32 - 36 g/dLOhioHealth Grant Medical CenterMCV (RBC) [Entitic vol]99 fL80 - 100 [facility] CenterPlatelet mean volume (Bld) [Entitic vol]10.4 fL7 - 12 [facility] CenterPlatelets (Bld) [#/Vol]95 10*3/uLOhioHealth Nelsonville Health CenterRBC (Bld) [#/Vol]2.27 10*6/[facility] HospitalWBC corrected for nucl RBC Auto (Bld) [#/Vol]5.9[facility] State HospitalCOMPLETE BLOOD COUNTon 67-27-7873Wxwrjxcsewg distribution width (RBC) [Ratio]20.6 %High11.5-15.0[facility] Comment on above:Performed By: #### CBC ####[facility] ([id number])[address], [address] [place] [address] 18373Ghyyeznlid (Bld) [Volume fraction]22.4 %Dlf59-15JedBxtlcrAkron Children'S HospitalComment on above:Performed By: #### CBC ####[facility] ([id number])[address], [address] [place] [address] 15332Fpchhzqnof (Bld) [Mass/Vol]7.5 g/dLLow13.0-17.0St. Rita's HospitalComment on above:Performed By: #### CBC ####[facility] ([id number])[address], [address] [place] [address] 27757AIT (RBC) [Entitic mass]32.9 udMxumxa89-17TbzPjunfbSt. Rita's HospitalComment on above: Performed By: #### CBC ####[facility] ([id number])[address], [address], [place] [address]UMMV (RBC) [Mass/Vol]33.3 g/ePFdbpdo91-45 [facility] HospitalComment on above:Performed By: #### CBC ####[facility] ([id number])[address], [address], [place] [address]ZNM (RBC) [Entitic vol]99 kQFcscrb62-705BqyVrjlhc Ward HospitalComment on above: Performed By: #### CBC ####[facility] ([id number])[address], [address] [place] [address] 67294Mpqaywlz mean volume (Bld) [Entitic vol]10.4 fLNormal7-12ProMedica Ward HospitalComment on above:Performed By: #### CBC ####[facility] ([id number])[address], [address] [place] [address] 60880Bhjmpidjh (Bld) [#/Vol]95 10*3/vNKqn467-162FguDprwrd Ward HospitalComment on above:Performed By: #### CBC ####[facility] ([id number])[address], [address] [place] [address] 48340GQJ COUNT2.27 X10E12/LLow 4.10-5.70ProMedica Ward HospitalComment on above:Performed By: #### CBC ####[facility] ([id number])[address], [address] [place] [address] 12992JCD (Bld) [#/Vol]5.9 10*3/uLNormal4.0-11.0ProMedica Ward HospitalComment on above:Performed By: #### CBC ####[facility] ([id number])[address], [address] [place] [address] 85023Wgztmpm.ionized (Bld) [Mass/Vol]on 37-28-4554ExrNecsej Health SystemIONIZED CALCIUM4.6 mg/dLNormal 4.5-5.3PMercy Health St. Anne HospitalComment on above:Performed By: #### 90933-2 ####[facility] ([id number])[address] [place] [address], [address] [place] [address] 35303Bvcxluf Glucometer (BldC) [Mass/Vol]on 54-16-7101Eqbmzht [Mass/Vol]105 mg/eGGqnz67 - 99 mg/dLSelect [facility] SystemInterpretation and review of laboratory resultsAbnormalAurora Medical Center-Washington County SystemGlucose [Mass/Vol]105 mg/xXWpyb78-47OejUvthcr [place] HospitalGlucose [Mass/Vol]130 mg/dL High65 - 99 mg/dLSelect [facility] SystemInterpretation and review of laboratory resultsAbnormalAurora Medical Center-[facility] SystemGlucose [Mass/Vol] 130 mg/zWLmrf27-28TeoBirbkx [place] HospitalGlucose [Mass/Vol]101 mg/xIIhho54 - 99 mg/dLSelect [facility] SystemInterpretation and review of laboratory results AbnormalProMoundview Memorial [facility] Clinics SystemGlucose [Mass/Vol]101 mg/cXXgqu13-38OurBqxcip [place] HospitalGlucose [Mass/Vol]96 mg/dL65 - 99 mg/dL [facility] SystemGlucose [Mass/Vol]96 mg/dLNormal 65-99ProKettering Health Washington Townshipo HospitalGlucose [Mass/Vol]95 mg/dL65 - 99 mg/dLProMoundview Memorial Hospital and Clinics SystemGlucose [Mass/Vol]95 mg/yFEgdoin60-17 [facility] HospitalGlucose [Mass/Vol]86 mg/dL65 - 99 mg/dLAurora Medical Center-Washington County SystemGlucose [Mass/Vol]86 mg/sIYuwhnc19-39QfgGdblif [place] HospitalGlucose [Mass/Vol]92 mg/dL65 - 99 mg/dLMarshfield Medical Center/[facility] SystemIonized calciumon 42-81-8666Paoobxe.ionized (Bld) [Mass/Vol]4.6 mg/dL4.5 - 5.3 mg/dLOhioHealth Grant Medical CenterIonized magnesiumon 20-37-8978Mxexjpivc Ionized ISE (Bld) [Moles/Vol]0.71 mmol/L0.45 - 0.74 mmol/L [facility] CenterLaboratory - Chemistry and Chemistry - challengeon 37-38-9706Russnbgxn [Mass/Vol]1.8 mg/dLNormal1.8-2.6[facility] Comment on above:Performed By: #### MARVA, 2777-1, 37236-2, BMP ####[facility] ([id number])[address] [address] Phosphate [Mass/Vol]2.3 mg/dLLow2.4-4.9OhioHealth Grant Medical CenterComment on above: Performed By: #### MARVA, 2777-1, 13301-0, BMP ####[facility] ([id number])[address] [address]Axpkilqnl Ionized ISE (Bld) [Moles/Vol]on 31-78-1472QqmJuwkjzOhioHealth Grant Medical CenterMagnesium [Moles/Vol]0.71 mmol/L Normal0.45-0.74St. Rita's HospitalComment on above:Result Comment: NEW REFERENCE RANGEPerformed By: #### 48146-2 ####[facility] ([id number])[address] [address]Sp Panel Informationon 01-11-8056Mednkfeqoarotf and review of laboratory resultsAbnormalProAdams County Regional Medical CenterProAdams County Regional Medical CenterPHOSPHORUSon 99-98-9710Chtkfroco [Mass/Vol] 3.1 mg/dLNormal2.4-4.9St. Rita's HospitalComment on above:Performed By: #### 2777-1 ####[facility] ([id number])[address] [address]Isgvmgolr [Mass/Vol]on 93-53-0702EtjXjbtluOhioHealth Grant Medical Center Phosphoruson 70-49-8185Ttgximccy [Mass/Vol]3.1 mg/dL2.4 - 4.9 mg/dLOhioHealth Grant Medical CenterBASIC METABOLIC PANLon 89-87-8429Vhshm gap [Moles/Vol]6 mmol/L Normal5-15ProAkron Children'S HospitalComment on above:Performed By: #### ANGLE DURHAM, , 2776-02 ####[facility] ([id number])[address], [address], [place] [address]Mydpjej [Mass/Vol]7.8 mg/dLLow8.5-10.5PPeoples Hospital HospitalComment on above:Performed By: #### ANGLE DURHAM, , 2776-02 ####[facility] ([id number])[address], [address], [place] [address]Sawozqlz [Moles/Vol]110 mmol/MTity97-693EdxEyvksj [place] HospitalComment on above:Performed By: #### ANGLE DURHAM, , 2776-02 ####[facility] ([id number])[address], [address], [place] [address]RH1 [Moles/Vol] 25 mmol/GIfjedk04-73DkvRrqqsu [place] HospitalComment on above:Performed By: #### ANGLE DURHAM, , 2776-02 ####[facility] ([id number])[address] [address], [place] [address]Zgprabhndz [Mass/Vol]1.15 mg/dLNormal 0.60-1.30ProAkron Children'S HospitalComment on above:Result Comment: METHOD TRACEABLE TO IDMS STANDARDPerformed By: #### ANGLE DURHAM, , 2776-02 ####[facility] ([id number])[address], [address], [place] [address]MDB/1.73 sq M.predicted among non-blacks MDRD (S/P/Bld) [Vol rate/Area]66 mL/min/{1.73_m2}Normal>59ProMedica Paynesville HospitalComment on above:Result Comment: Reported eGFR is based on theCKD-EPI 2020 equation that doesnot use a race coefficient.Performed By: #### ANGLE DURHAM, , 2776-02 ####[facility] ([id number])[address], [address] [address] Glucose [Mass/Vol]114 mg/eMKghb87-78GklYamgiz [place] HospitalComment on above: Performed By: #### ANGLE DURHAM, , 2776-02 ####[facility] ([id number])[address], [address] [place] [address]59[address]Fmpsgocoo [Moles/Vol]4.1 mmol/LNormal3.5-5.0ProCommunity [facility] HospitalComment on above:Performed By: #### ANGLE DURHAM, , 2776-02 ####[facility] ([id number])[address] [address] [place] [address] 54333Lpjbkf [Moles/Vol]141 mmol/EVarznz310-945 [facility] HospitalComment on above:Performed By: #### ANGLE DURHAM, , 2776-02 ####[facility] ([id number])[address], [address] [place] [address] 46656Whxh nitrogen [Mass/Vol]21 mg/dLNormal5-27Pro[facility] HospitalComment on above:Performed By: #### ANGLE DURHAM, , 2776-02 ####[facility] ([id number])[address], [address] [place] [address]Qbpsh Metabolic Panelon 91-54-3510Pwvzt gap [Moles/Vol]6 mmol/L5 - 15 mmol/LProMedica Health SystemCalcium [Mass/Vol]7.8 mg/dLLow8.5 - 10.5 mg/dL [facility] CenterChloride [Moles/Vol]110 mmol/LHigh98 - 109 mmol/L [facility] SystemCO2 [Moles/Vol]25 mmol/L22 - 32 mmol/[facility] HospitalCreatinine [Mass/Vol]1.15 mg/dL0.60 - 1.30 mg/dLOhioHealth Grant Medical Center eGFR (CKD-EPI)non-race dfocnjnfz71- PINFPFisher-[facility]itus Medical [facility] SystemGlucose [Mass/Vol]114 mg/zVGslo19 - 99 mg/dLOhioHealth Grant Medical CenterPotassium [Moles/Vol] 4.1 mmol/L3.5 - 5.0 mmol/[facility] SystemSodium [Moles/Vol]141 mmol/L134 - 146 mmol/[facility] SystemUrea nitrogen [Mass/Vol]21 mg/dL5 - 27 mg/dL [facility] CenterCBC AND AUTO DIFFon 69-11-2350FFFZVTCW BASOPHIL0.0 X10E9/LNormal0.0-0.2PMercy Health St. Anne HospitalComment on above:Performed By: #### ANGLE DURHAM, , 2776-02 ####[facility] ([id number])[address], [address] [place] [address]AYYLNLGI NEUTROPHIL3.7 X10E9/LNormal1.5-6.6 [facility] HospitalComment on above:Performed By: #### ANGLE DURHAM, , 2776-02 ####[facility] ([id number])[address], [address], [place] [address]Ypiyobdyi/100 WBC (Bld)0.8 %NormalSt. Rita's Hospital Comment on above:Performed By: #### ANGLE DURHAM, , 2776-02 ####[facility] ([id number])[address], [address] [place] [address] Eosinophils (Bld) [#/Vol]0.1 10*3/uLNormal0.0-0.4[facility] Comment on above:Performed By: #### ANGLE DURHAM, , 2776-02 ####[facility] ([id number])[address], [address] [place] [address] Eosinophils/100 WBC (Bld)2.4 %NormalProCommunity Memorial Hospital HospitalComment on above: Performed By: #### ANGLE DURHAM, , 2776-02 ####[facility] ([id number])[address], [address] [place] [address] 24980Vgqhjrcwcfg distribution width (RBC) [Ratio]20.4 %High11.5-15.0ProCommunity [facility] Hospital HospitalComment on above: Performed By: #### ANGLE DURHAM, , 2776-02 ####[facility] ([id number])[address] [address] [place] [address] 23124Xajlweybki (Bld) [Volume fraction]22.7 %Ahb52-33UufEijzhn [place] HospitalComment on above:Performed By: #### ANGLE DURHAM, , 2776-02 ####[facility] ([id number])[address] [address] [place] [address] 85006Wkabqudmdj (Bld) [Mass/Vol] 7.7 g/dLLow13.0-17.0ProCommunity [facility] Hospital HospitalComment on above:Performed By: #### ANGLE DURHAM, , 2776-02 ####[facility] ([id number])[address] [address]Uifkxwpzivf (Bld) [#/Vol]1.2 10*3/uLNormal 1.0-3.5Pro[facility]nesville HospitalComment on above:Performed By: #### ANGLE DURHAM, , 2776-02 ####[facility] ([id number])[address], [address] [place] [address] 16305Nqiaznezbmp/100 WBC (Bld)22.1 %NormalProMedica Ward HospitalComment on above:Performed By: #### CBCRachel, BMP, , 2776-02 ####[facility] ([id number])[address], [address] [place] [address] 78645BUB (RBC) [Entitic mass]33.4 zgNxqogl65-21EuqMdcuzk Ward HospitalComment on above:Performed By: #### CBCRachel, BMP, , 2776-02 ####[facility] ([id number])[address], [address] [place] [address]ABQZ (RBC) [Mass/Vol]33.7 g/sTBnlixz26-77UgoInfqbj Ward HospitalComment on above: Performed By: #### CBCRachel, BMP, , 2776-02 ####[facility] ([id number])[address] [address] [place] [address] 73647GAN (RBC) [Entitic vol]99 hFWmlgtq97-938YtxTudmvs Ward HospitalComment on above:Performed By: #### CBCRachel, ANGLE, , 2776-02 ####[facility] ([id number])[address] [address] [place] [address]32[address]Igdzsqstk (Bld) [#/Vol]0.6 10*3/uLNormal0-0.9 [facility] HospitalComment on above:Performed By: #### CBCA, BMP, , 2776-02 ####[facility] ([id number])[address] [address] [place] [address] 39449Lnqhibbds/100 WBC (Bld)9.8 %NormalProMedica Ward Hospital Comment on above:Performed By: #### CBCA, BMP, , 2776-02 ####[facility] ([id number])[address], [address] [place] [address] Neutrophils/100 WBC (Bld)64.9 %NormalProRegional Medical Centerca Paynesville HospitalComment on above: Performed By: #### CBCA, BMP, , 2776-02 ####[facility] ([id number])[address], [address] [place] [address] 39357Broeglek mean volume (Bld) [Entitic vol]10.1 fLNormal7-12Pro[facility] HospitalComment on above: Performed By: #### CBCRachel, BMP, , 2776-02 ####[facility] ([id number])[address], [address] [place] [address] 61562Imlwsklqb (Bld) [#/Vol]101 10*3/hSBmo866-937OxdRpnkfc [place]ville HospitalComment on above:Performed By: #### CBCRachel, BMP, , 2776-02 ####[facility] ([id number])[address], [address] [place] [address] 564[address]UNK COUNT2.29 X10E12/LLow4.10-5.70[facility] HospitalComment on above:Performed By: #### CBCA, BMP, , 2776-02 ####[facility] ([id number])[address], [address] [place] [address] 26777YVJ (Bld) [#/Vol]5.6 10*3/uLNormal4.0-11.0ProMedica Ward HospitalComment on above:Performed By: #### CBCA, BMP, , 2776-02 ####[facility] ([id number])[address], [address] [place] [address]OHU auto differentialon 89-30-5943Yzmvplcfa (Bld) [#/Vol]0 10*3/[facility] Basophils/100 WBC (Bld)0.8 %[facility] Medical CenterEosinophils (Bld) [#/Vol]0.1 10*3/[facility]intEosinophils/100 WBC (Bld)2.4 %[facility] Medical CenterErythrocyte distribution width (RBC) [Ratio]20.4 %High11.5 - 15.0 % [facility] Medical CenterHematocrit (Bld) [Volume fraction]22.7 %Low39 - 49 % [facility] CenterHemoglobin (Bld) [Mass/Vol]7.7 g/dLLow13.0 - 17.0 g/dL [facility] CenterInterpretation and review of laboratory resultsAbnormal [facility] CenterLymphocytes (Bld) [#/Vol]1.2 10*3/[facility]intLymphocytes/100 WBC (Bld)22.1 %[facility] CenterMCH (RBC) [Entitic mass]33.4 pg27 - 34 [facility] HospitalMCHC (RBC) [Mass/Vol]33.7 g/dL32 - 36 g/dLOhioHealth Grant Medical CenterMCV (RBC) [Entitic vol]99 fL80 - 100 [facility] CenterMonocytes (Bld) [#/Vol]0.6 10*3/[facility] Monocytes/100 WBC (Bld)9.8 %[facility] Medical CenterNeutrophils (Bld) [#/Vol]3.7 10*3/[facility]FlintNeutrophils/100 WBC (Bld)64.9 %[facility] Medical CenterPlatelet mean volume (Bld) [Entitic vol]10.1 fL7 - 12 [facility] CenterPlatelets (Bld) [#/Vol]101 10*3/[facility] HospitalRBC (Bld) [#/Vol]2.29 10*6/[facility] HospitalWBC corrected for nucl RBC Auto (Bld) [#/Vol]5.6[facility] State HospitalCalcium.ionized (Bld) [Mass/Vol]on 60-24-4726WebGqicsdOhioHealth Grant Medical CenterIONIZED CALCIUM4.7 mg/dL Normal4.5-5.3PMercy Health St. Anne HospitalComment on above:Performed By: #### 80254- 9 ####[facility] ([id number])[address] [place] [address], [address] [place] [address]08[address]Kyrbgvakva RBC:Number of Units: 1on 33-59-5706SE Type Myzwpti7562 [facility] CenterBlood component [id number] Grant Medical Center CrossmatchCompatibleOhioHealth Grant Medical CenterExpiration [id number] Health SystemStatus of unitTRANSFUSEDPAdena Fayette Medical CenterUnit ABOCity HospitalUnit [id number] Health SystemUnit RHPositive [facility] State HospitalGlucose Glucometer (BldC) [Mass/Vol]on 74-75-0511Cnkoell [Mass/Vol]92 mg/yZMcnzos43-38EbgAthbavSt. Rita's HospitalGlucose [Mass/Vol]107 mg/vHKmyb75 - 99 mg/dLOhioHealth Grant Medical Center Interpretation and review of laboratory resultsAbnoMayo Clinic Health System– Red CedarGlucose [Mass/Vol]107 mg/mAFcok80-89WtoFtsmtgSt. Rita's HospitalGlucose [Mass/Vol]122 mg/rFYxbx01 - 99 mg/dLOhioHealth Grant Medical Center Interpretation and review of laboratory resultsAbnoMayo Clinic Health System– Red CedarGlucose [Mass/Vol]122 mg/qRSlkt25-38FcnZejfojSt. Rita's HospitalGlucose [Mass/Vol]92 mg/dL65 - 99 mg/dLTorrance State HospitalGlucose [Mass/Vol]92 mg/sZVeqhgj78-12MhgGqxkdoSt. Rita's Hospital Glucose [Mass/Vol]123 mg/vRMnnq18 - 99 mg/dLOhioHealth Grant Medical CenterGlucose [Mass/Vol]106 mg/kUVqpz73 - 99 mg/dLOhioHealth Grant Medical CenterInterpretation and review of laboratory resultsAbConemaugh Nason Medical CenterGlucose [Mass/Vol]106 mg/rKFbgg22-02JifKwstzqSt. Rita's HospitalGlucose [Mass/Vol]123 mg/fQIlno35-26ZdzOidojrSt. Rita's HospitalHemoglobin and hematocrit, bloodon 11-74-3411Qscetqlobw (Bld) [Volume fraction]23.6 %Low39 - 49 %[facility] SystemHemoglobin (Bld) [Mass/Vol]8 g/dLLow13.0 - 17.0 g/dLOhioHealth Grant Medical CenterInterpretation and review of laboratory resultsAbnormalAurora Medical Center-Washington County SystemIonized calciumon 60-08-6911Suasfkw.ionized (Bld) [Mass/Vol]4.7 mg/dL4.5 - 5.3 mg/dLOhioHealth Grant Medical CenterIonized magnesium on 12-34-6049Qxmpjsxda Ionized ISE (Bld) [Moles/Vol]0.56 mmol/L0.45 - 0.74 mmol/LPrSheltering Arms HospitalMAGNESIUMon 60-11-7887Wuvaqeghi [Mass/Vol]1.9 mg/dL Normal1.8-2.6St. Rita's HospitalComment on above:Performed By: #### CBCA, [facility], 23650-8, 2777-1 ####[facility] ([id number])[address] [facility], [address] [place] [address] 96487Wggnawpoywe 90-34-2942Rzucdmquk [Mass/Vol]1.9 mg/dL1.8 - 2.6 mg/dLOhioHealth Grant Medical CenterMagnesium Ionized ISE (Bld) [Moles/Vol]on 86-70-0535PtwIjrcmvOhioHealth Grant Medical CenterMagnesium [Moles/Vol]0.56 mmol/L Normal0.45-0.74St. Rita's HospitalComment on above:Result Comment: NEW REFERENCE RANGEPerformed By: #### [id number] ####[facility] ([id number])[address] [facility], [address] [place] [address]Pb Panel Informationon 65-25-7379Lxllxrhaabmtju and review of laboratory resultsAbnoAspirus Wausau Hospital Health SystemPHOSPHORUSon 00-20-7417Qrdvbrbnj [Mass/Vol] 2.8 mg/dLNormal2.4-4.9ProCommunity [facility] HospitalComment on above:Performed By: #### 2777-1 ####[facility] ([id number])[address], [address], [place] [address]Uwrqpswnd [Mass/Vol]2.1 mg/dLLow2.4-4.9Pro[facility] HospitalComment on above:Performed By: #### CBCA, BMP, 06046-8, 2776-1 ####[facility] ([id number])[address], [address] [place] [address]86[address]Xulplaebf [Mass/Vol]on 89-38-8774LejFyaebx Health SystemPhosphoruson 41-32-7176Spvaagzpk [Mass/Vol]2.8 mg/dL2.4 - 4.9 mg/dLProUniversity Hospitals Health System System Phosphate [Mass/Vol]2.1 mg/dLLow2.4 - 4.9 mg/dLSelect Medical Specialty [facility], Inc SystemCBC AND AUTO DIFFon 76-04-3331UWGHLCVX BASOPHIL0.1 X10E9/LNormal0.0-0.2PMercy Health St. Anne HospitalComment on above:Performed By: #### CMP, 2776-, CBCA, ####[facility] ([id number])[address], [address] [place] [address]GCZCMXLY NEUTROPHIL4.6 X10E9/LNormal1.5-6.6[facility] Comment on above:Performed By: #### CMP, 2776-1, CBCA, ####[facility] ([id number])[address], [address] [place] [address] 13763 Basophils/100 WBC (Bld)0.7 %NormalProCommunity Memorial Hospital HospitalComment on above: Performed By: #### CMP, 2776-, CBCA, ####[facility] ([id number])[address], [address], [place] [address]Sppogvqycmp (Bld) [#/Vol] 0.2 10*3/uLNormal0.0-0.4Pro[facility] HospitalComment on above:Performed By: #### EBONY, 277-1, CBCA, ####[facility] ([id number])[address], [address], [place] [address]Avqmcbuukam/100 WBC (Bld) 2.2 %NormalProCommunity Memorial Hospital HospitalComment on above:Performed By: #### EBONY, 2776-, CBCA, ####[facility] ([id number])[address], [address], [place] [address]Emrrjsndaam distribution width (RBC) [Ratio]19.7 %High11.5-15.0Pro[facility] HospitalComment on above:Performed By: #### EBONY, 2776-, CBCA, ####[facility] ([id number])[address], [address], [place] [address]Nkkzzonwse (Bld) [Volume fraction]21.6 %Ctt27-11 ProMCleveland Clinic Euclid Hospital HospitalComment on above:Performed By: #### EBONY, 2776-1, CBCA, ####[facility] ([id number])[address], [address], [place] [address]Walpolfzdz (Bld) [Mass/Vol]7.3 g/dLLow13.0-17.0Pro[facility] HospitalComment on above:Performed By: #### EBONY, 2776-1, CBCA, ####[facility] ([id number])[address], [address], [place] [address]Wkoetthqazb (Bld) [#/Vol]1.6 10*3/uLNormal1.0-3.5PMercy Health St. [facility] Comment on above:Performed By: #### CMP, 2776-1, CBCA, ####[facility] ([id number])[address], [address] [place] [address] Lymphocytes/100 WBC (Bld)22.7 %NormalProAkron Children'S HospitalComment on above: Performed By: #### CMP, 2776-1, CBCA, ####[facility] ([id number])[address], [address] [place] [address]IHG (RBC) [Entitic mass] 34.2 ajAodn02-36TdzUngymuAkron Children'S HospitalComment on above:Performed By: #### EBONY, 2776-1, CBCA, ####[facility] ([id number])[address], [address], [place] [address]ALMC (RBC) [Mass/Vol]33.9 g/rMPssotm48-54 ProMUniversity Hospitals Conneaut Medical CenterComment on above:Performed By: #### EBONY, 2776-, CBCA, ####[facility] ([id number])[address], [address] [place] [address]JOZ (RBC) [Entitic vol]101 lOKmgc64-882FajRuxezvAkron Children'S HospitalComment on above:Performed By: #### CMP, 2776-1, CBCA, ####[facility] ([id number])[address], [address] [place] [address]Fsqkgzqca (Bld) [#/Vol]0.7 10*3/uLNormal0-0.9[facility] Comment on above:Performed By: #### CMP, 2776-1, CBCA, ####[facility] ([id number])[address], [address], [place] [address] Monocytes/100 WBC (Bld)10.3 %NormalProMedica Ward HospitalComment on above: Performed By: #### CMP, 2776-1, CBCA, ####[facility] ([id number])[address], [address], [place] [address]Cbplphldufr/100 WBC (Bld) 64.1 %NormalProMedica Ward HospitalComment on above:Performed By: #### CMP, 2776-1, CBCA, ####[facility] ([id number])[address], [address], [place] [address]Tzuemcog mean volume (Bld) [Entitic vol]10.2 fL Normal7-12Pro[facility] HospitalComment on above:Performed By: #### EBONY, 2776-, CBCA, ####[facility] ([id number])[address], [address], [place] [address]Rhzncjtrh (Bld) [#/Vol]137 10*3/uMUdz854-850 [facility] HospitalComment on above:Performed By: #### EBONY, 2776-, CBCA, ####[facility] ([id number])[address], [address], [place] [address]OIY COUNT2.15 X10E12/LLow4.10-5.70[facility] Comment on above:Performed By: #### EBONY, 2776-1, CBCA, ####[facility] ([id number])[address], [address], [place] [address]TET (Bld) [#/Vol]7.2 10*3/uLNormal4.0-11.0ProMedica Ward HospitalComment on above: Performed By: #### EBONY, 2776-1, CBCA, ####[facility] ([id number])[address] [facility], [address] [place] [address]LIW auto differentialon 95-91-5509Galfxmxxx (Bld) [#/Vol]0.1 10*3/uLSelect Medical Specialty Hospital [facility], Inc SystemBasophils/100 WBC (Bld)0.7 %[facility] SystemEosinophils (Bld) [#/Vol]0.2 10*3/uL [facility] SystemEosinophils/100 WBC (Bld)2.2 %[facility] System Erythrocyte distribution width (RBC) [Ratio]19.7 %High11.5 - 15.0 %[facility] SystemHematocrit (Bld) [Volume fraction]21.6 %Low39 - 49 %[facility] Medical CenterHemoglobin (Bld) [Mass/Vol]7.3 g/dLLow13.0 - 17.0 g/dLSelect [facility] Specialty [facility], [facility] SystemInterpretation and review of laboratory resultsAbnormalOhioHealth Grant Medical CenterLymphocytes (Bld) [#/Vol]1.6 10*3/[facility] Lymphocytes/100 WBC (Bld)22.7 %[facility] Medical CenterMCH (RBC) [Entitic mass] 34.2 dwLoci08 - 34 pgPAdena Fayette Medical CenterMCHC (RBC) [Mass/Vol]33.9 g/dL32 - 36 g/dLOhioHealth Grant Medical CenterMCV (RBC) [Entitic vol]101 uMHeqw71 - 100 fL [facility] Medical CenterMonocytes (Bld) [#/Vol]0.7 10*3/uLSelect Medical Specialty [facility], Inc System Monocytes/100 WBC (Bld)10.3 %[facility] Medical CenterNeutrophils (Bld) [#/Vol]4.6 10*3/uLSelect Medical Specialty Hospital [facility], Inc SystemNeutrophils/100 WBC (Bld)64.1 %[facility] Medical CenterPlatelet mean volume (Bld) [Entitic vol]10.2 fL7 - 12 [facility] Medical CenterPlatelets (Bld) [#/Vol]137 10*3/uLLowSelect Medical Specialty Hospital [facility], Inc SystemRBC (Bld) [#/Vol]2.15 10*6/uLLowOhioHealth Grant Medical CenterWBC corrected for nucl RBC Auto (Bld) [#/Vol]7.2PNew Lifecare Hospitals of PGH - Alle-KiskiCOMPREHENSIVE METABOLIC PANELon 13-61-4509Yqfvmzu [Mass/Vol]2.8 g/dLLow3.2-5.3PPeoples Hospital HospitalComment on above:Performed By: #### EBONY, 2777-1, CBCA, 76340-6 ####[facility] ([id number])[address], [address], [place] [address]OIR [Catalytic activity/Vol]120 U/LJdrewm07-685QgzIkaorl [place] [facility] Comment on above:Performed By: #### EBONY, 277-1, CBCA, ####[facility] ([id number])[address], [address], [place] [address]YDZ [Catalytic activity/Vol]9 U/LNormal0-40ProAkron Children'S HospitalComment on above:Performed By: #### EBONY, 277-1, CBCA, ####[facility] ([id number])[address], [address], [place] [address]Jhoyc gap [Moles/Vol]8 mmol/LNormal5-15Pro[facility] HospitalComment on above:Performed By: #### EBONY, 2777-1, CBCA, ####[facility] ([id number])[address], [address], [place] [address]QKV [Catalytic activity/Vol]14 U/LNormal0-41 ProMedicKettering Health Troy HospitalComment on above:Performed By: #### EBONY, 2777-1, CBCA, ####[facility] ([id number])[address], [address], [place] [address]Wgcafpizq [Mass/Vol]0.3 mg/dLNormal0.3-1.2PPeoples Hospital HospitalComment on above:Performed By: #### EBONY, 2777-1, CBCA, 10227-1 ####[facility] ([id number])[address], [address], [place] [address]Cwiltxy [Mass/Vol]8.4 mg/dLLow8.5-10.5PPeoples Hospital HospitalComment on above:Performed By: #### EBONY, 2777-1, CBCA, ####[facility] ([id number])[address], [address], [place] [address]Inohxevl [Moles/Vol] 108 mmol/SZxmcdm53-371SkgUwmgdv [place] HospitalComment on above:Performed By: #### EBONY, 2777-1, CBCA, ####[facility] ([id number])[address], [address], [place] [address]RJ7 [Moles/Vol]24 mmol/L Rahthu66-12QxfAtsbtv [place] HospitalComment on above:Performed By: #### EBONY, 2777-, CBCA, ####[facility] ([id number])[address], [place] [address]Regxshzjwo [Mass/Vol]1.95 mg/dLHigh0.60-1.30 ProMedicKettering Health Troy HospitalComment on above:Result Comment: METHOD TRACEABLE TO IDAL STANDARDPerformed By: #### EBONY, 2777-1, CBCA, ####[facility] ([id number])[address], [address], [place] [address]MUT/1.73 sq M.predicted among non-blacks MDRD (S/P/Bld) [Vol rate/Area]35 mL/min/{1.73_m2} Low>59Pro[facility] HospitalComment on above:Result Comment: Reported eGFR is based on theCKD-EPI 2020 equation that doesnot use a race coefficient.Performed By: #### EBONY, 2777-1, CBCRachel, ####[facility] ([id number])[address], [address], [place] [address]Jnleoov [Mass/Vol]117 mg/dL Evgw62-43CicYnkdjx [place] HospitalComment on above:Performed By: #### EBONY, 277- 1, CBCRachel, ####[facility] ([id number])[address], [address]TOSELECT [facility] [place], [place] [address]Ocacdlypx [Moles/Vol]4.1 mmol/LNormal3.5-5.0[facility] [place] HospitalComment on above:Performed By: #### EBONY, 277-, CBCA, ####[facility] ([id number])[address], [address]TOSELECT [facility] [place], [place] [address]Rpqixvg [Mass/Vol]5.6 g/dLLow6.0-8.0Pro[facility] HospitalComment on above:Performed By: #### EBONY, 2776-, CBCRachel, ####[facility] ([id number])[address], [address], [place] [address]Gdwfkc [Moles/Vol]140 mmol/MWbvqtm307-121WcsPgtiot [place] HospitalComment on above:Performed By: #### EBONY, 277-, CBCRachel, ####[facility] ([id number])[address], [address], [place] [address]Ztbv nitrogen [Mass/Vol]36 mg/dLHigh5-27 [facility] HospitalComment on above:Performed By: #### EBONY, 277-1, CBCA, ####[facility] ([id number])[address], [address], [place] [address]Dgrmsjunxuzbm metabolic panelon 01-02-7598Ouawtqk [Mass/Vol] 2.8 g/dLLow3.2 - 5.3 g/dLProRmc [facility] Health SystemALP [Catalytic activity/Vol]120 U/L39 - 130 U/LPrEllis Fischel Cancer Centerica Health SystemALT No additional P-5'-P [Catalytic activity/Vol]9 U/L0 - 40 U/LPrEllis Fischel Cancer Centerica Health SystemAnion gap [Moles/Vol]8 mmol/L 5 - 15 mmol/LPrWest Springs Hospital Health SystemAST [Catalytic activity/Vol]14 U/L0 - 41 U/L [facility] SystemBilirubin [Mass/Vol]0.3 mg/dL0.3 - 1.2 mg/dLProUniversity Hospitals Health System SystemCalcium [Mass/Vol]8.4 mg/dLLow8.5 - 10.5 mg/dLProUniversity Hospitals Health System SystemChloride [Moles/Vol]108 mmol/L98 - 109 mmol/[facility] SystemCO2 [Moles/Vol]24 mmol/L22 - 32 mmol/[facility] SystemCreatinine [Mass/Vol] 1.95 mg/dLHigh0.60 - 1.30 mg/dLSelect [facility], [facility] SystemeGFR (CKD-EPI)non-race zqwycguqq49Uvz- PINFPFisher-Titus Medical Center SystemGlucose [Mass/Vol]117 mg/kBQgtp74 - 99 mg/dLSelect [facility]ty [facility] SystemPotassium [Moles/Vol]4.1 mmol/L3.5 - 5.0 mmol/L [facility] SystemProtein [Mass/Vol]5.6 g/dLLow6.0 - 8.0 g/dLSelect [facility] Specialty [facility] SystemSodium [Moles/Vol]140 mmol/L134 - 146 mmol/[facility] Urea nitrogen [Mass/Vol]36 mg/dLHigh5 - 27 mg/dLOhioHealth Grant Medical CenterGlucose Glucometer (BldC) [Mass/Vol]on 55-18-9845Ldkcyzd [Mass/Vol]101 mg/oOKsno93 - 99 mg/dLSelect [facility] Specialty [facility] SystemInterpretation and review of laboratory results AbnormalOhioHealth Grant Medical CenterProUniversity Hospitals Health System SystemGlucose [Mass/Vol]101 mg/hPCfsw20-83NhfKrsbnwSt. Rita's HospitalGlucose [Mass/Vol]118 mg/uZKxzq82 - 99 mg/dLSelect [facility] Specialty [facility] SystemInterpretation and review of laboratory results AbnormalAurora Medical Center-Washington County SystemGlucose [Mass/Vol]118 mg/fMNgmz34-91HwnBriuer [place] HospitalGlucose [Mass/Vol]134 mg/aLBasn32 - 99 mg/dLOhioHealth Grant Medical CenterInterpretation and review of laboratory results AbnormalTorrance State HospitalGlucose [Mass/Vol]134 mg/gELnjn47-28RnlZztrff [place] HospitalGlucose [Mass/Vol]96 mg/dL65 - 99 mg/dL [facility] SystemGlucose [Mass/Vol]96 mg/dLNormal 65-99ProAkron Children'S HospitalGlucose [Mass/Vol]108 mg/gUHlvz10 - 99 mg/dL [facility] CenterInterpretation and review of laboratory resultsAbnormal [facility] State HospitalGlucose [Mass/Vol]108 mg/dLHigh 65-99Pro[facility] HospitalGlucose [Mass/Vol]95 mg/dL65 - 99 mg/dLTorrance State HospitalHGB AND HCTon 49-75-5926Iscpeekzab (Bld) [Volume fraction]23.6 %Amr28-12WbvAeiujuSt. Rita's HospitalComment on above: Performed By: #### HH ####[facility] ([id number])[address], [address] [place] [address]Gvupyzeneg (Bld) [Mass/Vol]8.0 g/dLLow 13.0-17.0St[facility] HospitalComment on above:Performed By: #### HH ####[facility] ([id number])[address], [address] [place] [address]Apqausbsbk (Bld) [Volume fraction]20.1 %Gzo88-76SipRfqlrv [facility] [facility] Comment on above:Performed By: #### HH ####[facility] ([id number])[address], [address] [place] [address]Kitnrxhvmp (Bld) [Mass/Vol] 6.9 g/dLCritically low13.0-17.0St. [facility]'s HospitalComment on above: Performed By: #### HH ####[facility] ([id number])[address] [facility], [address] [place] [address]Uunphdhnje and hematocrit, bloodon 03-10-2024 Hematocrit (Bld) [Volume fraction]20.1 %Low39 - 49 %[facility] System Hemoglobin (Bld) [Mass/Vol]6.9 g/dLCritically low13.0 - 17.0 g/dLOhioHealth Grant Medical CenterInterpretation and review of laboratory resultsAbnoFroedtert Menomonee Falls [facility] [place] SystemIonized magnesiumon 30-64-7920[place] Ionized ISE (Bld) [Moles/Vol]0.82 mmol/LHigh0.45 - 0.74 mmol/LProMedica [facility] SystemMAGNESIUMon 82-52-5498Tddqaqssa [Mass/Vol]1.6 mg/dLLow1.8-2.6St. [facility]'s HospitalComment on above:Performed By: #### CMP, 2777-1, CBCA, 80180-8 ####[facility] ([id number])[address] [facility], [address] [place] [address]Ucztdlqbktz 12-51-1726Ciwofvjoi [Mass/Vol]1.6 mg/dLLow1.8 - 2.6 mg/dL [facility] Medical CenterMagnesium Ionized ISE (Bld) [Moles/Vol]on 03-10-2024 Interpretation and review of laboratory resultsAbBellin Health's Bellin [facility] SystemMagnesium [Moles/Vol]0.82 mmol/LHigh0.45-0.74St. Rita's HospitalComment on above:Result Comment: NEW REFERENCE RANGEPerformed By: #### 23037-0 ####[facility] ([id number])[address] [facility], [address] [place] [address]Py Panel Informationon 58-91-2127Logidyppebmluy and review of laboratory resultsAbnoFroedtert [place] [facility]– [place] System PHOSPHORUSon 32-68-0358Cigtcvkay [Mass/Vol]2.9 mg/dLNormal2.4-4.9St. [facility]'s HospitalComment on above:Performed By: #### EBONY, 2776-, CBCA, ####[facility] ([id number])[address], [place] [address]Kdcpkyjlzera 28-99-0446Czqkgeghj [Mass/Vol]2.9 mg/dL2.4 - 4.9 mg/dL [facility] CenterType and screenon 33-92-7559GLXEHhqQkfsesCity HospitalRh Nom (Bld)PositiveTorrance State HospitalXR CHEST 1 VWon 76-53-5343QQ CHEST 1 VWNormalSt. Rita's HospitalXR Chest Single viewon 02-41-4407WTHYJSFSLWFdnDogwxx Health SystemRadiology Study observation (narrative)[facility] Medical CenterXR Chest Single viewOrdered By: Vanita Gillespie on 74-81-0352GnvLsmwzhOhioHealth Grant Medical Center Work Phone: cBC AND AUTO DIFFon 54-81-7157KCZZNBMP BASOPHIL0.1 X10E9/LNormal0.0-0.2PMercy Health St. Anne HospitalComment on above:Performed By: #### EBONY, CBCA, 2776-02, ####[facility] ([id number])[address], [address] [place] [address]PFVDBELB NEUTROPHIL4.0 X10E9/LNormal1.5-6.6 [facility] HospitalComment on above:Performed By: #### EBONY, CBCA, 2776-, 97947-3 ####[facility] ([id number])[address], [address], [place] [address]Lzvdvpvew/100 WBC (Bld)1.0 %NormalSt. Rita's Hospital Comment on above:Performed By: #### EBONY, CBCA, 2776-02, 05656-1 ####[facility] ([id number])[address] [address] [place] [address] Eosinophils (Bld) [#/Vol]0.2 10*3/uLNormal0.0-0.4[facility] Comment on above:Performed By: #### CMP, CBCA, 2776-02, ####[facility] ([id number])[address] [address] [place] [address] Eosinophils/100 WBC (Bld)2.5 %NormalProCommunity Memorial Hospital HospitalComment on above: Performed By: #### EBONY, CBCA, 2776-02, ####[facility] ([id number])[address] [address] [place] [address]Ookuozriamw distribution width (RBC) [Ratio]19.5 %High11.5-15.0ProCommunity [facility] HospitalComment on above: Performed By: #### CMP, CBCA, 2776-02, ####[facility] ([id number])[address] [address] [place] [address]Hnvtdwomxh (Bld) [Volume fraction]21.0 %Dcp77-17UflIvrwofAkron Children'S HospitalComment on above:Performed By: #### CMP, CBCA, 2776-02, ####[facility] ([id number])[address] [address] [place] [address]Imglyxbsqi (Bld) [Mass/Vol] 7.3 g/dLLow13.0-17.0St. Rita's HospitalComment on above:Performed By: #### CMP, CBCA, 2776-02, ####[facility] ([id number])[address] [address] [place] [address]Bgfclljqlmv (Bld) [#/Vol]2.2 10*3/uLNormal 1.0-3.5ProMedica [facility]ville HospitalComment on above:Performed By: #### CMP, CBCA, 2776-02, ####[facility] ([id number])[address], [place] [address]Dydpyufxttr/100 WBC (Bld)30.6 %NormalProMedica Paynesville HospitalComment on above:Performed By: #### CMP, CBCA, 2776-02, ####[facility] ([id number])[address], [address], [place] [address]VDV (RBC) [Entitic mass]34.0 qdKtlgoj38-18WjxIjuaiu [place] HospitalComment on above:Performed By: #### EBONY, CBCA, 2776-02, ####[facility] ([id number])[address], [place] [address]AMFI (RBC) [Mass/Vol]34.5 g/eXUsnonf37-01RaeYqmxfo [place] HospitalComment on above: Performed By: #### EBONY, CBCA, 2776-02, ####[facility] ([id number])[address], [address] [place] [address]LCG (RBC) [Entitic vol]99 fRXmmooy02-300YokOlqtlj [place] HospitalComment on above:Performed By: #### CMP, CBCA, 2776-02, ####[facility] ([id number])[address], [place] [address]Ciqxsqofg (Bld) [#/Vol]0.9 10*3/uLNormal0-0.9 [facility] [place] HospitalComment on above:Performed By: #### CMP, CBCA, 2776-02, ####[facility] ([id number])[address], [address] [place] [address]Wwxpvppcz/100 WBC (Bld)12.1 %NormalProRegional Medical Centerca [facility] Comment on above:Performed By: #### EBONY, CBCA, 2776-02, ####[facility] ([id number])[address], [address] [place] [address] Neutrophils/100 WBC (Bld)53.8 %NormalProRegional Medical Centerca [place] HospitalComment on above: Performed By: #### CMP, CBCA, 2776-02, ####[facility] ([id number])[address], [address] [place] [address] 13835Gjlpjjpp mean volume (Bld) [Entitic vol]9.6 fLNormal7-12Pro[facility] Ward HospitalComment on above:Performed By: #### EBONY, CBCA, 2776-02, ####[facility] ([id number])[address], [address] [place] [address] 52266Orkyumkce (Bld) [#/Vol]147 10*3/iVKnz801-148ZmfLjhmrf Ward HospitalComment on above:Performed By: #### EBONY, CBCA, 2776-02, ####[facility] ([id number])[address], [address] [place] [address] 43405IVX COUNT2.13 X10E12/LLow4.10-5.70Pro[facility] Ward HospitalComment on above:Performed By: #### CMP, CBCA, 2776-02, ####[facility] ([id number])[address], [address] [place] [address] 87315OSU (Bld) [#/Vol]7.3 10*3/uLNormal4.0-11.0Pro[facility] Ward HospitalComment on above:Performed By: #### CMP, CBCA, 2776-02, ####[facility] ([id number])[address] [facility], [address] [place] [address] 93605SCV auto differentialon [id number] (Bld) [#/Vol]0.1 10*3/uLSelect [facility] Specialty [facility], Inc SystemBasophils/100 WBC (Bld)1 %ProMMadelia Community Hospital SystemEosinophils (Bld) [#/Vol] 0.2 10*3/uLSelect [facility]ty [facility], [facility] SystemEosinophils/100 WBC (Bld)2.5 %[facility] SystemErythrocyte distribution width (RBC) [Ratio]19.5 %High11.5 - 15.0 % [facility] SystemHematocrit (Bld) [Volume fraction]21 %Low39 - 49 % [facility] SystemHemoglobin (Bld) [Mass/Vol]7.3 g/dLLow13.0 - 17.0 g/dL [facility] SystemInterpretation and review of laboratory resultsAbnormal [facility] SystemLymphocytes (Bld) [#/Vol]2.2 10*3/[facility]-FlintLymphocytes/100 WBC (Bld)30.6 %[facility] CenterMCH (RBC) [Entitic mass]34 pg27 - 34 [facility] HospitalMCHC (RBC) [Mass/Vol]34.5 g/dL32 - 36 g/dLOhioHealth Grant Medical CenterMCV (RBC) [Entitic vol]99 fL80 - 100 [facility] CenterMonocytes (Bld) [#/Vol]0.9 10*3/[facility] Monocytes/100 WBC (Bld)12.1 %[facility] SystemNeutrophils (Bld) [#/Vol]4 10*3/[facility] SystemNeutrophils/100 WBC (Bld)53.8 %[facility] Medical CenterPlatelet mean volume (Bld) [Entitic vol]9.6 fL7 - 12 [facility] SystemPlatelets (Bld) [#/Vol]147 10*3/uLGrand Itasca Clinic and Hospital SystemRBC (Bld) [#/Vol]2.13 10*6/[facility] HospitalWBC corrected for nucl RBC Auto (Bld) [#/Vol]7.3PNew Lifecare Hospitals of PGH - Alle-KiskiCOMPREHENSIVE METABOLIC PANELon [id number] [Mass/Vol]2.9 g/dLLow3.2-5.3PPeoples Hospital HospitalComment on above:Performed By: #### EBONY CBCRachel, 2776-02, ####[facility] ([id number])[address], [address]TOSELECT [facility] [place] [address]YFL [Catalytic activity/Vol]126 U/ZSgwkhy90-896OftDojfcf [facility] Comment on above:Performed By: #### EBONY CBCRachel, 2776-02, ####[facility] ([id number])[address], [address] [place], [place] [address]FQU [Catalytic activity/Vol]9 U/LNormal0-40[facility] HospitalComment on above:Performed By: #### EBONY CBCRachel, 2776-02, ####[facility] ([id number])[address], [address], [place] [address]Vfruq gap [Moles/Vol]12 mmol/LNormal5-15[facility] HospitalComment on above:Performed By: #### MARVA BECK, 2776-02, ####[facility] ([id number])[address], [address], [place] [address]YAY [Catalytic activity/Vol]14 U/LNormal0-41 [facility] HospitalComment on above:Performed By: #### EBONY CBCA, 2776-02, ####[facility] ([id number])[address], [address], [place] [address]Ltmnalafn [Mass/Vol]0.3 mg/dLNormal0.3-1.2PPeoples Hospital HospitalComment on above:Performed By: #### MARVA BECK, 2776-02, ####[facility] ([id number])[address] [address], [place] [address]Bejpnjv [Mass/Vol]8.3 mg/dLLow8.5-10.5[facility] HospitalComment on above:Performed By: #### MARVA BECK, 2776-02, ####[facility] ([id number])[address] [address], [place] [address]Oiliiwbn [Moles/Vol] 107 mmol/KCztifo31-754UcuRdtsbw [place] HospitalComment on above:Performed By: #### MARVA BECK, 2776-02, ####[facility] ([id number])[address] [address] [place] [place] [address]CR8 [Moles/Vol]21 mmol/LLow 22-32[facility] HospitalComment on above:Performed By: #### MARVA BECK, 2776-02, ####[facility] ([id number])[address] [address], [place] [address]Utgpihlukj [Mass/Vol]3.89 mg/dLHigh0.60-1.30[facility] HospitalComment on above:Result Comment: METHOD TRACEABLE TO IDMS STANDARDPerformed By: #### MARVA BECK, 2776-02, ####[facility] ([id number])[address] [address] [place], [place] [address]CGB/1.73 sq M.predicted among non-blacks MDRD (S/P/Bld) [Vol rate/Area]15 mL/min/{1.73_m2} Low>59[facility] HospitalComment on above:Result Comment: Reported eGFR is based on theCKD-EPI 2020 equation that doesnot use a race coefficient.Performed By: #### MARVA BECK, 2776-02, ####[facility] ([id number])[address], [address], [place] [address]Ilanpbt [Mass/Vol]119 mg/dL Zbbl49-92QcbSijsau [place] HospitalComment on above:Performed By: #### MARVA BECK, 2776-02, ####[facility] ([id number])[address], [address], [place] [address]Ffbvhkhuz [Moles/Vol]3.9 mmol/LNormal3.5-5.0[facility] HospitalComment on above:Performed By: #### MARVA BECK, 2776-02, ####[facility] ([id number])[address], [address] [place], [place] [address]Bhgjohn [Mass/Vol]5.6 g/dLLow6.0-8.0[facility] HospitalComment on above:Performed By: #### MARVA BECK, 2776-02, ####[facility] ([id number])[address], [address], [place] [address]Hmsxqd [Moles/Vol]140 mmol/LLeunzx422-065WyiVzhstl [place] HospitalComment on above:Performed By: #### MARVA BECK, 2776-02, ####[facility] ([id number])[address], [address], [place] [address]Rovg nitrogen [Mass/Vol]53 mg/dLHigh5-27 ProMC[facility] HospitalComment on above:Performed By: #### MARVA BECK, 2776-02, ####[facility] ([id number])[address], [address], [place] [address]Xdcdmlz.ionized (Bld) [Mass/Vol]on 75-36-4943XaxWyaaku Health SystemIONIZED CALCIUM4.7 mg/dLNormal4.5-5.3PMercy Health St. Anne HospitalComment on above:Performed By: #### 79550-2 ####[facility] ([id number])[facility]0 [facility], [address] [place] [address]Dflcwvcwpppya metabolic panelon 02-81-4670Jqkdotp [Mass/Vol]2.9 g/dLLow3.2 - 5.3 g/dLProMedica Health SystemALP [Catalytic activity/Vol]126 U/L39 - 130 U/LProMedica Health SystemALT No additional P-5'-P [Catalytic activity/Vol]9 U/L0 - 40 U/LProMedica Health SystemAnion gap [Moles/Vol]12 mmol/L5 - 15 mmol/LProMedica Health SystemAST [Catalytic activity/Vol]14 U/L0 - 41 U/LProMedica Health SystemBilirubin [Mass/Vol]0.3 mg/dL0.3 - 1.2 mg/dLProMedica Health SystemCalcium [Mass/Vol]8.3 mg/dLLow8.5 - 10.5 mg/dLProMedica Health SystemChloride [Moles/Vol]107 mmol/L98 - 109 mmol/LProMedica Health SystemCO2 [Moles/Vol]21 mmol/LLow22 - 32 mmol/L [facility] SystemCreatinine [Mass/Vol]3.89 mg/dLHigh0.60 - 1.30 mg/dL [facility] Health SystemeGFR (CKD-EPI)non-race oplzaxnpd65Oog- PINFPMary Bird Perkins Cancer Center Health SystemGlucose [Mass/Vol]119 mg/bYNmim53 - 99 mg/dLProRegional Medical Centerca [facility] System Interpretation and review of laboratory resultsAbnormalProMedica Health System Potassium [Moles/Vol]3.9 mmol/L3.5 - 5.0 mmol/LProMedica Health SystemProtein [Mass/Vol]5.6 g/dLLow6.0 - 8.0 g/dLProMedica Health SystemSodium [Moles/Vol]140 mmol/L134 - 146 mmol/LProMedica Health SystemUrea nitrogen [Mass/Vol]53 mg/dL High5 - 27 mg/dLProMedica [facility] SystemFL FLUOROSCOPY UP TO 1 HOURon 03-09-2024 FL FLUOROSCOPY UP TO 1 HOURNoOhio State University Wexner Medical CenterGlucose Glucometer (BldC) [Mass/Vol]on 72-24-1827Dttlurg [Mass/Vol]95 mg/fVUdsxmo29-07JbyHcjufgSt. Rita's HospitalGlucose [Mass/Vol]93 mg/dL65 - 99 mg/dLLehigh Valley Hospital - PoconoGlucose [Mass/Vol]93 mg/eRWmgjot32-27YkbNypnghSt. Rita's HospitalGlucose [Mass/Vol]92 mg/dL65 - 99 mg/dLTorrance State HospitalGlucose [Mass/Vol]92 mg/rXEgxcrp01-97KnlLchfthSt. Rita's Hospital Glucose [Mass/Vol]103 mg/fUHozg38 - 99 mg/dLOhioHealth Grant Medical Center Interpretation and review of laboratory resultsAbMarshfield Medical Center/Hospital Eau ClaireGlucose [Mass/Vol]103 mg/nFXsck54-82JclRzpexcSt. Rita's HospitalGlucose [Mass/Vol]128 mg/dKKvbz76 - 99 mg/dLOhioHealth Grant Medical Center Interpretation and review of laboratory resultsAbMarshfield Medical Center/Hospital Eau ClaireGlucose [Mass/Vol]128 mg/eOLpel65-42PkpFaueuvSt. Rita's HospitalHGB AND HCTon 30-91-6115Dmscwyxdxv (Bld) [Volume fraction]21.3 %Jbj42-94 St. Rita's HospitalComment on above:Performed By: #### HH ####[facility] ([id number])[address] [facility], [address] [place] [address] Hemoglobin (Bld) [Mass/Vol]7.2 g/dLLow13.0-17.0St. Rita's HospitalComment on above:Performed By: #### HH ####[facility] ([id number])[address] [facility], [address] [place] [address]Zvvgogzffa and hematocrit, bloodon 30-34-3690Zizsqnrrmf (Bld) [Volume fraction]21.3 %Low39 - 49 %Ohio[facility] Grant Medical CenterHemoglobin (Bld) [Mass/Vol]7.2 g/dLLow13.0 - 17.0 g/dLOhioHealth Grant Medical CenterInterpretation and review of laboratory resultsAbnormalTorrance State HospitalIonized calciumon 90-79-3225Qomiqwn.ionized (Bld) [Mass/Vol]4.7 mg/dL4.5 - 5.3 mg/dLOhioHealth Grant Medical CenterMAGNESIUMon 03-09-2024 Magnesium [Mass/Vol]2.1 mg/dLNormal1.8-2.6St. Rita's HospitalComment on above:Performed By: #### CMP, CBCA, 2777-1, 22935-0 ####[facility] ([id number])[address] [facility], [address] [place] [address]Hnrdcaeawhc 03-09-2024 Magnesium [Mass/Vol]2.1 mg/dL1.8 - 2.6 mg/dLOhioHealth Grant Medical CenterNo Panel Informationon 92-04-3953BznEvetcsAdams County Regional Medical CenterPHOSPHORUSon 63-69-5464Senlhwppz [Mass/Vol]3.9 mg/dLNormal2.4-4.9St. Rita's HospitalComment on above: Performed By: #### CMP, CBCA, 2777-1, 16474-6 ####[facility] ([id number])[address] [facility], [address] [place] [address]Sywsdkxtocyc 03-09-2024 Phosphate [Mass/Vol]3.9 mg/dL2.4 - 4.9 mg/dLOhioHealth Grant Medical CenterRF Less than 1 houron 06-57-8763SBTAFMNOKFOifDmjifgWarren General Hospital Radiology Study observation (narrative)[facility] Medical CenterXR CHEST 1 VWon 34-52-0351EI CHEST 1 [facility] SystemXR Chest Single viewon 13-70-7144NBQKPORUXKRbiOwheaaJersey City Medical CenterRadiology Study observation (narrative)[facility] CenterXR Chest Single viewOrdered By: Kye Kapadia on 43-89-3872RncPvcqpyOhioHealth Grant Medical Center Work Phone: ARTERIAL CODEon 12-40-8213YMAMI'S TESTNormalProMedica Ward HospitalComment on above:Performed By: #### ICODE ####[facility] ([id number])[address] [facility] [place], [place] [address]OHDA,DEFICIT5.0 MMOL/L High0.0-2.0[facility] HospitalComment on above:Performed By: #### ICODE ####[facility] ([id number])[address] [facility] [place] [address]Dqmz iwivkqktgin27.6 [degF]Rbrfju67.0Pro[facility] HospitalComment on above: Performed By: #### ICODE ####[facility] ([id number])[address] [facility] [place] [address]Yhelvtj [Mass/Vol]173 mg/pSMwws84-92DitMfukte Ward HospitalComment on above:Performed By: #### ICODE ####[facility] ([id number])[address] [facility] [place], [place] [address]CQT2 (Bld) [Moles/Vol]19.1 mmol/L Lmz51-40LclSfyizw Ward HospitalComment on above:Performed By: #### ICODE ####[facility] ([id number])[address] [facility] [place] [address] Hematocrit (Bld) [Volume fraction]22 %Zfg19-33OjeIsmkxv Ward HospitalComment on above:Performed By: #### ICODE ####[facility] ([id number])[address] [facility] [place], [place] [address]WPTW. O2 CONC.32 %NormalProMedica Ward HospitalComment on above:Performed By: #### ICODE ####[facility] ([id number])[address] [facility], [place] [address]Zczmoe (Bld) [Partial pressure]137 mm[Hg]Ndjc65-085JqfDitjex Ward HospitalComment on above:Performed By: #### ICODE ####[facility] ([address] [place] [address])[address] [facility] [place], [place] [address]Nygfjr saturation in Blood99.0 %Normal>90Pro[facility] HospitalComment on above:Performed By: #### ICODE ####[facility] ([address] [place] [address])[address]141 [place], [place] [address]SHZRZI SOURCENCNormalProMedica Ward HospitalComment on above:Performed By: #### ICODE ####[facility] ([address] [place] [address])[address]141 [place], [place] [address]SSE223.8 JJISZls33-86 [facility] HospitalComment on above:Performed By: #### ICODE ####[facility] ([address] [place] [address])[address]141 [place], [place] [address]fK (Bld)7.400 [pH]Normal7.350-7.450Pro[facility] HospitalComment on above:Performed By: #### ICODE ####[facility] ([address] [place] [address])[address]141 [place], [place] [address]UCVTHJVN ICA4.2 mg/dLLow4.5-5.3Pro[facility] HospitalComment on above:Performed By: #### ICODE ####[facility] ([address] [place] [address])[address]141 [place], [place] [address]Irxwcfvzs [Moles/Vol]3.6 mmol/LNormal3.5-5.0 [facility] HospitalComment on above:Performed By: #### ICODE ####[facility] ([address] [place] [address])[address]141 [place], [place] [address]UBRXEI SITE ALineNormalProMedica Ward HospitalComment on above:Performed By: #### ICODE ####[facility] ([id number])[address] [place] [address] SAMPLE TYPEARTERIALNormalSt. Rita's HospitalComment on above:Performed By: #### ICODE ####[facility] ([id number])[address] [place], [place] [address]Gbtyfo [Moles/Vol]140 mmol/ICcewne527-074NhmZhcpph [place] [facility] Comment on above:Performed By: #### ICODE ####[facility] ([id number])[address] [place], [place] [address]Wjdxxkcd Line Insertionon 41-46-3170RuhXldsiy Health SystemBLOOD CULTUREon 16-85-0942Tjyzezef identified Aer cx Nom (Bld)CULTURE RESULTS NO GROWTH 5 DAYSNoKettering Health – Soin Medical CenterBacteria identified Aer cx Nom (Bld)CULTURE RESULTS NO GROWTH 5 DAYSSelect Medical Specialty Hospital - CantonCBC AND AUTO DIFFon 03-08-2024 ABSOLUTE BASOPHIL0.1 X10E9/LNormal0.0-0.2Pro[facility]ica [facility]ulton County Health CenterComment on above:Performed By: #### CMP, CBCA, 48143-2, 22670-7, 2776- ####[facility] ([id number])[address], [address] [place] [address]JPRTNPTO NEUTROPHIL6.2 X10E9/LNormal1.5-6.6ProAkron Children'S HospitalComment on above: Performed By: #### CMP, CBCA, 58430-8, , 2776- ####[facility] ([id number])[address], [address], [place] [address]Ywvfscfil/100 WBC (Bld)0.8 %NormalProAkron Children'S HospitalComment on above:Performed By: #### CMP, CBCA, 52941-5, 12903-6, 2776- ####[facility] ([id number])[address], [address], [place] [address]Bsuhwhstkxi (Bld) [#/Vol] 0.1 10*3/uLNormal0.0-0.4Pro[facility] HospitalComment on above:Performed By: #### CMP, CBCA, 06153-2, , 2776-02 ####[facility] ([id number])[address], [address], [place] [address]Sqbzltbtmny/100 WBC (Bld) 0.7 %NormalProCommunity Memorial Hospital HospitalComment on above:Performed By: #### CMP, CBCA, 55223-1, , 2776-02 ####[facility] ([id number])[address], [address] [place] [address]Wlmwkzeubpr distribution width (RBC) [Ratio]19.5 %High11.5-15.0[facility] HospitalComment on above:Performed By: #### CMP, CBCA, 74182-1, , 2776-02 ####[facility] ([id number])[address], [address] [place] [address]PDHSTSXD2+AbnormalNONE [facility] HospitalComment on above:Performed By: #### CMP, CBCA, 10697-1, , 2776-02 ####[facility] ([id number])[address], [address] [place] [address]Uzijchqwgb (Bld) [Volume fraction]23.1 %Oif15-29 [facility] HospitalComment on above:Performed By: #### CMP, CBCA, 37560-7, , 2776-02 ####[facility] ([id number])[address], [address] [place] [address]Oiezzlteqz (Bld) [Mass/Vol]7.9 g/dLLow13.0-17.0 [facility] HospitalComment on above:Performed By: #### CMP, CBCA, 87526-1, 78540-7, 2776-02 ####[facility] ([id number])[address], [address] [place] [address]Ydfrcrxetke (Bld) [#/Vol]1.9 10*3/uLNormal1.0-3.5 [facility] HospitalComment on above:Performed By: #### CMP, CBCA, 85145-7, 04999-0, 2776-02 ####[facility] ([id number])[address], [address] [place] [address]Jjliqjetplo/100 WBC (Bld)19.7 %NormalProMedica Ward HospitalComment on above:Performed By: #### CMP, CBCA, 48744-2, , 2776-02 ####[facility] ([id number])[address], [address] [place] [address]CWC (RBC) [Entitic mass]33.9 lrBbjfpc29-87MenIrpnfp Ward HospitalComment on above:Performed By: #### CMP, CBCA, 32969-7, 68726-0, 2776-02 ####[facility] ([id number])[address], [address] [place] [address]NAXG (RBC) [Mass/Vol]34.2 g/jRSihxfa17-30XroNcirua Ward HospitalComment on above: Performed By: #### CMP, CBCA, 65847-4, 70764-4, 2776-02 ####[facility] ([id number])[address] [address] [place] [address]YLJ (RBC) [Entitic vol]99 cUNjsqel03-303ObbSlbjkb Ward HospitalComment on above: Performed By: #### CMP, CBCA, 54216-4, 16772-8, 2776- ####[facility] ([id number])[address], [address], [place] [address]Xxxbtgjjs (Bld) [#/Vol]1.3 10*3/uLHigh0-0.9Pro[facility] HospitalComment on above:Performed By: #### CMP, CBCA, 29743-3, 26229-8, 2776-02 ####[facility] ([id number])[address], [address], [place] [address]Gmzoyjjst/100 WBC (Bld)13.8 %NormalProMedica Ward HospitalComment on above:Performed By: #### CMP, CBCA, 92159-4, 68652-7, 2776-02 ####[facility] ([id number])[address], [address], [place] [address]Pcrkvbdspep/100 WBC (Bld)65.0 %Normal [facility] HospitalComment on above:Performed By: #### CMP, CBCA, 92669-7, , 2776-02 ####[facility] ([id number])[address], [address] [place] [address]Azqqzxdu mean volume (Bld) [Entitic vol]9.8 fLNormal 7-12Pro[facility] HospitalComment on above:Performed By: #### CMP, CBCA, 05510-0, 13613-3, 2776-02 ####[facility] ([id number])[address], [address] [place] [address] 158[address]Zfwgrerjs (Bld) [#/Vol]188 10*3/uLNormal 150-450Pro[facility] HospitalComment on above:Performed By: #### CMP, CBCA, 27332-9, , 2776-02 ####[facility] ([id number])[address], [address] [place] [address]FEU COUNT2.33 X10E12/LLow4.10-5.70[facility] HospitalComment on above:Performed By: #### CMP, CBCA, 59052-6, 54945-9, 2776-1 ####[facility] ([id number])[address], [address] [place] [address] 30660LTLQZJXU2+AbnormalNONEProMedCherrington Hospital HospitalComment on above:Performed By: #### CMP, CBCA, 04495-0, 40043-1, 2776-1 ####[facility] ([id number])[address], [address] [place] [address]UBA (Bld) [#/Vol]9.5 10*3/uLNormal4.0-11.0Pro[facility] HospitalComment on above: Performed By: #### CMP, CBCA, 52194-6, 98584-3, 2776-1 ####[facility] ([id number])[address], [address] [place] [address]70[address]UFZGAZNP BASOPHIL0.1 X10E9/LNormal0.0-0.2[facility] Cancer HospitalComment on above: Performed By: #### CBCA, CMP, 2156-6, PINR, 82987-3, 42955-2, 2639-3, 33364-7 ####[facility] ([id number])[address] [place] [address] 00532ITQMGNMC NEUTROPHIL7.3 X10E9/LHigh1.5-6.6ProMethodist Hospital AtascosaComment on above:Performed By: #### CBCA, CMP, 2156-6, PINR, 91061-7, 03467-4, 2639-3, 69132-6 ####[facility] ([id number])[address] [place] [address]Lfsoxdrmd/100 WBC (Bld)0.9 %Normal [facility] Cancer HospitalComment on above:Performed By: #### CBCA, CMP, 2157-6, PINR, 30098-5, 89003-4, 2639-3, 99289-7 ####[facility] ([id number])[address] [place] [address] 78824Etyswbveyfp (Bld) [#/Vol]0.1 10*3/uLNormal0.0-0.4ProMethodist Hospital AtascosaComment on above: Performed By: #### CBCA, CMP, 2156-6, PINR, 82295-8, 16356-1, 2639-3, 89480-4 ####[facility] ([id number])[address] [place] [address] 80536Tnxetthbdfq/100 WBC (Bld)1.2 %NormalProMethodist Hospital AtascosaComment on above:Performed By: #### CBCA, CMP, 6, PINR, 60990-2, 45231-0, 2639-3, 05330-7 ####[facility] ([id number])[address] [place] [address] 90795Vlqqlnjwiun distribution width (RBC) [Ratio]19.5 %High11.5-15.0ProMethodist Hospital AtascosaComment on above:Performed By: #### CBCA, CMP, 2156-6, PINR, 88891-5, 79368-4, 2639-3, 45428-0 ####[facility] ([id number])[address] [place] [address] 70536Bubhoknbse (Bld) [Volume fraction]25.6 %Ooc29-30RgyQtqrieMethodist Hospital Atascosa Comment on above:Performed By: #### CBCA, CMP, 2156-6, PINR, 97900-9, 05590-9, 2639-3, 61173-5 ####[facility] ([id number])[address] [place] [address] 35267Oxozszqjqs (Bld) [Mass/Vol]8.6 g/dLLow13.0-17.0 [facility] Cancer HospitalComment on above:Performed By: #### CBCA, CMP, 2157-6, PINR, 49673-7, 21029-9, 2639-3, 36581-9 ####[facility] ([id number])[address] [place] [address] 69795Ketimnpknez (Bld) [#/Vol]1.8 10*3/uLNormal1.0-3.5Pro[facility] Cancer HospitalComment on above: Performed By: #### CBCA, CMP, 2157-6, PINR, 61286-7, 68752-3, 2639-3, 93654-1 ####[facility] ([id number])[address] [place] [address] 08640Knvuvtavmyg/100 WBC (Bld)17.4 %NormalGuernsey Memorial HospitalComment on above:Performed By: #### CBCA, CMP, 2157-6, PINR, 73482-3, 06946-3, 2639-3, 30693-0 ####[facility] ([id number])[address] [place] [address] 28244ZMT (RBC) [Entitic mass]33.7 pgNormal 27-34Guernsey Memorial HospitalComment on above:Performed By: #### CBCA, CMP, 2157-6, PINR, 52358-7, 80382-6, 2639-3, 11726-9 ####[facility] ([id number])[address] [place] [address] 80804TNET (RBC) [Mass/Vol]33.7 g/hBVsdgph78-01HofChsemlMethodist Hospital AtascosaComment on above: Performed By: #### CBCA, CMP, 2157-6, PINR, 14410-8, 37544-0, 2639-3, 30160-3 ####[facility] ([id number])[address] [place] [address] 03516WPL (RBC) [Entitic vol]100 tTCjfvhk19-781PwwHexoum Fremont HospitalComment on above:Performed By: #### CBCA, CMP, 2157-6, PINR, 14236-0, 40477-7, 2639-3, 74910-1 ####[facility] ([id number])[address] [place] [address] [id number] (Bld) [#/Vol]1.0 10*3/uLHigh 0-0.9Guernsey Memorial HospitalComment on above:Performed By: #### CBCA, CMP, 2157-6, PINR, 66161-7, 46771-5, 2639-3, 91305-3 ####[facility] ([id number])[address] [place] [address] 80722Brvzrqdor/100 WBC (Bld)9.7 %NormalProMethodist Hospital AtascosaComment on above:Performed By: #### CBCA, CMP, 2157-6, PINR, 33189-1, 80633-0, 2639-3, 76109-4 ####[facility] ([id number])[address] [place] [address] 26203 Neutrophils/100 WBC (Bld)70.8 %NormalProMethodist Hospital AtascosaComment on above: Performed By: #### CBCA, CMP, 2157-6, PINR, 39007-2, 46588-9, 2639-3, 03198-7 ####[facility] ([id number])[address] [place] [address] 81443Hksvwval mean volume (Bld) [Entitic vol]10.3 fLNormal7-12 [facility] Cancer HospitalComment on above:Performed By: #### CBCA, CMP, 2157-6, PINR, 98637-4, 74842-2, 2639-3, 13449-8 ####[facility] ([id number])[address] [place] [address] 77705Yeomnvopz (Bld) [#/Vol]192 10*3/nAIizkwk041-986XtiBnxlxp [facility]remont HospitalComment on above: Performed By: #### CBCA, CMP, 2157-6, PINR, 68883-0, 99745-3, 2639-3, 65220-5 ####[facility] ([id number])[address] [place] [address] 00887VAN COUNT2.56 X10E12/LLow4.10-5.70ProMethodist Hospital AtascosaComment on above:Performed By: #### CBCA, CMP, 7-6, PINR, 61430-3, 43374-3, 2639-3, 88813-0 ####[facility] ([id number])[address] [place] [address] 42806HSE (Bld) [#/Vol]10.3 10*3/uLNormal 4.0-11.0Gu[facility] Memorial HospitalComment on above:Performed By: #### CBCA, CMP, 2157-6, PINR, 01918-4, 89561-9, 2639-3, 77430-7 ####[facility] ([id number])[address] [place] [address] 91410IMA auto differentialon 74-28-5676Huhvrrnlv (Bld) [#/Vol]0.1 10*3/uLProMedica Health SystemBasophils/100 WBC (Bld)0.8 %ProMedica Health SystemDacrocytes LM Ql (Bld) 1+AbnormalNONE^NONEProMedica Health SystemEosinophils (Bld) [#/Vol]0.1 10*3/uL [facility]ica Health SystemEosinophils/100 WBC (Bld)0.7 %[facility] Erythrocyte distribution width (RBC) [Ratio]19.5 %High11.5 - 15.0 %[facility] Medical CenterFragments LM Ql (Bld)1+AbnormalNONE^NONEOhioHealth Grant Medical Center Hematocrit (Bld) [Volume fraction]23.1 %Low39 - 49 %[facility] Hemoglobin (Bld) [Mass/Vol]7.9 g/dLLow13.0 - 17.0 g/dLOhioHealth Grant Medical Center Interpretation and review of laboratory resultsAbnormProtestant Hospital Lymphocytes (Bld) [#/Vol]1.9 10*3/[facility] Hospital-FlintLymphocytes/100 WBC (Bld)19.7 %[facility] HospitalH (RBC) [Entitic mass]33.9 pg27 - 34 pg [facility] Medical CenterMCHC (RBC) [Mass/Vol]34.2 g/dL32 - 36 g/dLOhioHealth Grant Medical CenterMCV (RBC) [Entitic vol]99 fL80 - 100 [facility] Monocytes (Bld) [#/Vol]1.3 10*3/uLDominion HospitalMonocytes/100 WBC (Bld)13.8 %[facility] Medical CenterNeutrophils (Bld) [#/Vol]6.2 10*3/[facility] Hospital-FlintNeutrophils/100 WBC (Bld)65 %[facility] Medical CenterPlatelet mean volume (Bld) [Entitic vol]9.8 fL7 - 12 [facility] CenterPlatelets (Bld) [#/Vol]188 10*3/uLOhioHealth Grant Medical CenterRBC (Bld) [#/Vol]2.33 10*6/uLLow Ohio[facility] Grant Medical CenterWBC corrected for nucl RBC Auto (Bld) [#/Vol]9.5PNew Lifecare Hospitals of PGH - Alle-KiskiCK [Catalytic activity/Vol]on 55-20-1728NUQ 13 U/ZZov76-389EogTqmfosGuernsey Memorial HospitalComment on above:Performed By: #### CBCA, CMP, 2157-6, PINR, 52127-5, 71983-7, 8599-3, 02145-8 ####[facility] ([id number])[address] [place] [address], [place] [address] COMPREHENSIVE METABOLIC PANELon 57-62-2196Zvjfxuq [Mass/Vol]3.2 g/dLNormal 3.2-5.3ProMedica Ward HospitalComment on above:Performed By: #### CMP, CBCA, 34089-9, 13805-1, 2776- ####[facility] ([id number])[address], [address], [place] [address]QJH [Catalytic activity/Vol]136 U/LHigh 39-130ProMedica Ward HospitalComment on above:Performed By: #### CMP, CBCA, 20341-6, 06314-3, 2776-02 ####[facility] ([id number])[address], [address], [place] [address]UAW [Catalytic activity/Vol]11 U/LNormal0-40 Pro[facility] Ward HospitalComment on above:Performed By: #### CMP, CBCA, 08865-1, 69752-4, 2776-02 ####[facility] ([id number])[address], [address], [place] [address]Jpedn gap [Moles/Vol]15 mmol/LNormal5-15ProMedica Ward HospitalComment on above:Performed By: #### CMP, CBCA, 27455-6, 64713-7, 2776-02 ####[facility] ([id number])[address], [address], [place] [address]MTT [Catalytic activity/Vol]14 U/LNormal0-41ProMedica Ward HospitalComment on above:Performed By: #### CMP, CBCA, 95758-9, 18217-1, 2776-02 ####[facility] ([id number])[address], [address], [place] [address]Fcjujauuw [Mass/Vol]0.4 mg/dLNormal0.3-1.2ProMedica Ward HospitalComment on above:Performed By: #### EBONY, CBCA, 26626-6, 39082-7, 2776-02 ####[facility] ([id number])[address], [address] [address] Calcium [Mass/Vol]7.8 mg/dLLow8.5-10.5PPeoples Hospital HospitalComment on above: Performed By: #### EBONY, CBCA, 88062-8, , 2776-02 ####[facility] ([id number])[address], [address], [place] [address]Wzvxmqay [Moles/Vol]104 mmol/VDqsuav72-836BgzBwndgv [place] HospitalComment on above: Performed By: #### EBONY, CBCA, 89111-1, , 2776-02 ####[facility] ([id number])[address], [address], [place] [address]XK3 [Moles/Vol] 20 mmol/LOch94-04QvsVqdnhm [place] HospitalComment on above:Performed By: #### EBONY, CBCA, 93351-9, , 2776-02 ####[facility] ([id number])[address] [address], [place] [address]Kwauqvayvs [Mass/Vol]5.53 mg/dLHigh0.60-1.30Pro[facility] HospitalComment on above:Result Comment: METHOD TRACEABLE TO IDMS STANDARDPerformed By: #### EBONY, CBCA, 44029-0, 68995-5, 2776-02 ####[facility] ([id number])[address], [address], [place] [address]REG/1.73 sq M.predicted among non-blacks MDRD (S/P/Bld) [Vol rate/Area]10 mL/min/{1.73_m2}Low>59Pro[facility]ica Paynesville HospitalComment on above: Result Comment: Reported eGFR is based on theCKD-EPI 1 equation that doesnot use a race coefficient.Performed By: #### MARVA BECK, 25265-1, , 2776-02 ####[facility] ([id number])[address], [address], [place] [address]Dzwrdju [Mass/Vol]168 mg/dEUypf50-54HnvAqrxng Ward HospitalComment on above:Performed By: #### EBONY, MARVA, 31083-2, , 2776-02 ####[facility] ([id number])[address] [address], [place] [address]Sydsntnff [Moles/Vol]3.6 mmol/LNormal3.5-5.0ProMedica Ward HospitalComment on above: Performed By: #### MARVA BECK, 67518-4, , 2776-02 ####[facility] ([id number])[address] [address], [place] [address]Opqlsvg [Mass/Vol]6.1 g/dLNormal6.0-8.0ProMedica Ward HospitalComment on above: Performed By: #### EBONY, MARVA, 60923-1, , 2776-02 ####[facility] ([id number])[address] [address], [place] [address]Kdzavp [Moles/Vol]139 mmol/EQjdsmw818-813SuxRllbio Ward HospitalComment on above: Performed By: #### EBONY, JINA, 38711-8, , 2776-02 ####[facility] ([id number])[address] [address], [place] [address]Mxwx nitrogen [Mass/Vol]67 mg/dLHigh5-27ProMedica Ward HospitalComment on above:Performed By: #### EBONY, CBCA, 34646-0, , 2776-02 ####[facility] ([id number])[address] [facility], [address], [place] [address]Fjrjgxh [Mass/Vol]3.3 g/dL Normal3.2-5.3ProMedica [facility]. Cancer HospitalComment on above:Performed By: #### CBCA, CMP, 2157-6, PINR, 57169-1, 82667-4, 2639-3, 53535-7 ####[facility] ([id number])[address] [place] [address]LMR [Catalytic activity/Vol]152 U/RGoyx93-514QbrWfxctbMethodist Hospital AtascosaComment on above:Performed By: #### CBCA, CMP, 2157-6, PINR, 29879-7, 10508-0, 2639-3, 97065-5 ####[facility] ([id number])[address] [place] [address]EVL [Catalytic activity/Vol]18 U/LNormal0-40ProMethodist Hospital AtascosaComment on above:Performed By: #### CBCA, CMP, 2157-6, PINR, 42156-0, 03734-6, 2639-3, 12195-5 ####[facility] ([id number])[address] [place] [address]Kqlgg gap [Moles/Vol]15 mmol/L Normal5-15ProMethodist Hospital AtascosaComment on above:Performed By: #### CBCA, CMP, 2157-6, PINR, 41496-0, 45986-9, 2639-3, 11696-6 ####[facility] ([id number])[address] [place] [address]WNF [Catalytic activity/Vol]21 U/LNormal0-41ProMethodist Hospital AtascosaComment on above:Performed By: #### CBCA, CMP, 2157-6, PINR, 99549-2, 52219-2, 2639-3, 26523-7 ####[facility] ([id number])[address] [place] [address], [place] [address]Pvcduthve [Mass/Vol]0.9 mg/dLNormal0.3-1.2PSt. Vincent HospitalComment on above:Performed By: #### CBCA, CMP, 2157-6, PINR, 57203-8, 77331-0, 2639-3, 11845-8 ####[facility] ([id number])[address] [place] [address], [place] [address]Vwizxcw [Mass/Vol]8.7 mg/dLNormal 8.5-10.5PSt. Vincent HospitalComment on above:Performed By: #### CBCA, CMP, 2157-6, PINR, 76615-0, 07369-1, 9-3, 79345-0 ####[facility] ([id number])[address] [place] [address], [place] [address]Afvgvbri [Moles/Vol]105 mmol/XDndoio72-424AvaFjqitu [facility] Cancer HospitalComment on above: Performed By: #### CBCA, CMP, 2157-6, PINR, 58680-2, 93798-0, 2639-3, 71767-0 ####[facility] ([id number])[address] [place] [address], [place] [address]ZI8 [Moles/Vol]15 mmol/JUhj50-08SghUyaihpSt. Vincent Hospital Comment on above:Performed By: #### CBCA, CMP, 2157-6, PINR, 92985-6, 90017-3, 2639-3, 17992-5 ####[facility] ([id number])[address] [place] [address]Sllnmzvcrw [Mass/Vol]6.49 mg/dLHigh0.70-1.20 [facility] Cancer HospitalComment on above:Result Comment: METHOD TRACEABLE TO IDMS STANDARDPerformed By: #### MARVA, EBONY, 2157-6, PINR, 54641-7, 02859-6, 2639- 3, 93864-8 ####[facility] ([id number])[address] [place] [address]BTQ/1.73 sq M.predicted among non-blacks MDRD (S/P/Bld) [Vol rate/Area]8 mL/min/{1.73_m2}Low>59ProMethodist Hospital Atascosa Comment on above:Result Comment: Reported eGFR is based on theCKD-EPI 2020 equation that doesnot use a race coefficient.Performed By: #### MARVA, EBONY, 2157- 6, PINR, 21321-0, 89838-6, 2638-3, 36069-2 ####[facility] ([id number])[address] [place] [address] 99[address]Rjhjweu [Mass/Vol]123 mg/eSCsil41-33SbdYlpufmMethodist Hospital AtascosaComment on above:Performed By: #### MARVA, EBONY, 2157-6, PINR, 09235-7, 61418-4, 2638-3, 43247-2 ####[facility] ([id number])[address] [place] [address]Kecxtebax [Moles/Vol]4.0 mmol/LNormal3.5-5.0[facility] Comment on above:Performed By: #### MARVA, EBONY, 2157-6, PINR, 99595-7, 27273-8, 9-3, 19715-5 ####[facility] ([id number])[address] [place] [address]25[address]Tyaftxj [Mass/Vol]7.2 g/dLNormal6.0-8.0ProMethodist Hospital AtascosaComment on above:Performed By: #### MARVA, EBONY, 2157-6, PINR, 90183-5, 37423-1, 2639-3, 48323-2 ####[facility] ([id number])[address] [place] [address] 57[address]Ddhwrv [Moles/Vol]135 mmol/L Zbgfhi804-509DwkFozcpyGuernsey Memorial HospitalComment on above:Performed By: #### CBCA, CMP, 7-6, PINR, 01683-0, 65854-2, 2639-3, 96254-7 ####[facility] ([id number])[address] [place], [place] [address]Mdvo nitrogen [Mass/Vol]70 mg/dLHigh5-27Gu[facility] Memorial HospitalComment on above: Performed By: #### CBCA, CMP, 7-6, PINR, 15575-4, 61383-2, 9-3, 30775-5 ####[facility] ([id number])[address] [place] [address] 617[address]XM ABDOMEN AND PELVIS WO CONTon 81-18-0209TX ABDOMEN AND PELVIS WO CONTNormalGuernsey Memorial HospitalCT CHEST WO CONTon 22-47-4742HW CHEST WO CONTNormVeterans Health AdministrationCalcium.ionized (Bld) [Mass/Vol]on 63-68-3191Oxnfqxeesqfudl and review of laboratory resultsAbnoFirstHealth Moore Regional Hospital - RichmondIONIZED CALCIUM4.4 mg/dLLow4.5-5.3PMercy Health St. Anne HospitalComment on above:Performed By: #### 04980-9, 12226-1 ####[facility] ([id number])[address] [place] [address], [address] [place] [address]Rioactefjeniy metabolic panelon 51-00-9401Kirkphp [Mass/Vol]3.2 g/dL3.2 - 5.3 g/dLProUniversity Hospitals Health System SystemALP [Catalytic activity/Vol]136 U/LHigh39 - 130 U/LProMedBarnesville Hospital System ALT No additional P-5'-P [Catalytic activity/Vol]11 U/L0 - 40 U/[facility] SystemAnion gap [Moles/Vol]15 mmol/L5 - 15 mmol/[facility] AST [Catalytic activity/Vol]14 U/L0 - 41 U/[facility] SystemBilirubin [Mass/Vol]0.4 mg/dL0.3 - 1.2 mg/dLOhioHealth Grant Medical CenterCalcium [Mass/Vol]7.8 mg/dLLow8.5 - 10.5 mg/dLOhioHealth Grant Medical CenterChloride [Moles/Vol]104 mmol/L98 - 109 mmol/[facility] SystemCO2 [Moles/Vol]20 mmol/LLow22 - 32 mmol/L [facility] CenterCreatinine [Mass/Vol]5.53 mg/dLHigh0.60 - 1.30 mg/dL [facility] Medical CentereGFR (CKD-EPI)non-race skrmijuxn59Ikk- PINFPAdena Fayette Medical CenterGlucose [Mass/Vol]168 mg/bQAnjq01 - 99 mg/dLOhioHealth Grant Medical Center Potassium [Moles/Vol]3.6 mmol/L3.5 - 5.0 mmol/[facility] SystemProtein [Mass/Vol]6.1 g/dL6.0 - 8.0 g/dLNovant Health New Hanover Regional Medical Centerodium [Moles/Vol]139 mmol/L134 - 146 mmol/Samaritan HospitalUrea nitrogen [Mass/Vol]67 mg/dL High5 - 27 mg/dLOhioHealth Grant Medical CenterGlucose Glucometer (BldC) [Mass/Vol]on 17-69-0103Ntvtgfs [Mass/Vol]125 mg/lAHnxo47 - 99 mg/dLOhioHealth Grant Medical Center Interpretation and review of laboratory resultsAbnoMayo Clinic Health System– Red CedarGlucose [Mass/Vol]125 mg/tKYebv15-93GkcAmvekcSt. Rita's HospitalGlucose [Mass/Vol]115 mg/vPHyho91 - 99 mg/dLOhioHealth Grant Medical Center Interpretation and review of laboratory resultsAbnoMayo Clinic Health System– Red CedarGlucose [Mass/Vol]115 mg/dCSzsy05-90DbaSmxkbzSt. Rita's HospitalGlucose [Mass/Vol]127 mg/cNDuyj33 - 99 mg/dLOhioHealth Grant Medical Center Interpretation and review of laboratory resultsAbnoMayo Clinic Health System– Red CedarGlucose [Mass/Vol]127 mg/pMDoqt60-78MqgSzmyxuSt. Rita's HospitalGlucose [Mass/Vol]180 mg/yGXaln56 - 99 mg/dLOhioHealth Grant Medical Center Interpretation and review of laboratory resultsAbnoMayo Clinic Health System– Red CedarGlucose [Mass/Vol]180 mg/rTZuzw51-95VioMkruhbSt. Rita's HospitalIonized calciumon 23-51-7527Hvacbbe.ionized (Bld) [Mass/Vol]4.4 mg/dLLow 4.5 - 5.3 mg/dLOhioHealth Grant Medical CenterIonized magnesiumon 73-31-5449Yyhscglwm Ionized ISE (Bld) [Moles/Vol]0.58 mmol/L0.45 - 0.74 mmol/LProMedica [facility] SystemLactate (P mayra) [Moles/Vol]on 19-09-4300BanPzfwxkAdams County Regional Medical CenterLACTATE W/REFLEX1.4 mmol/LNormal0.4-2.0St. Rita's HospitalComment on above:Result Comment: Result did not trigger repeat Lactate,re-order if needed.Performed By: #### 03957-4, 08728-4 ####[facility] ([id number])[address] [facility], [address], [place] [address]Kmynstq [Moles/Vol]1.8 mmol/LNormal0.4-2.0 [facility] HospitalComment on above:Performed By: #### 32812-9 ####[facility] ([id number])[address] [place], [place] [address]HQRVYMJ W/REFLEX3.7 mmol/LHigh0.4-2.0[facility] HospitalComment on above:Performed By: #### 33560-0 ####[facility] ([id number])[address] [place] [address] 626[address]Gzbpikv w/ Reflexon 28-26-9080Paadrlc (P mayra) [Moles/Vol]1.4 mmol/L0.4 - 2.0 mmol/L [facility] Medical CenterMAGNESIUMon 35-79-0665Ahqushrur [Mass/Vol]1.7 mg/dLLow 1.8-2.6St. Rita's HospitalComment on above:Performed By: #### CMP, CBCA, 24413-4, 70450-8, 2777-1 ####[facility] ([id number])[address] [facility], [address] [place] [address]Rpocsvxfh [Mass/Vol]1.2 mg/dLLow1.8-2.6 [facility] HospitalComment on above:Performed By: #### CBCA, CMP, 2157-6, PINR, 61235-8, 49217-9, 2639-3, 43055-1 ####[facility] ([id number])[address] [place] [address]MXEH DNA ARSENIO+probe Ql (Unsp spec)on 11-41-1718BgxGnlvntOhioHealth Grant Medical CenterMRSA PCR NASALon 72-45-5524EEAM DNA ARSENIO+probe Ql (Unsp spec)NegativeNormalNEGProAkron Children'S HospitalComment on above:Performed By: #### 21156-0 ####[facility] ([id number])[address] [facility], [address] [place] [address] 42[address]Vtjiyplkqse 03-08-2024 Magnesium [Mass/Vol]1.7 mg/dLLow1.8 - 2.6 mg/dLOhioHealth Grant Medical CenterMagnesium Ionized ISE (Bld) [Moles/Vol]on 53-04-8808Kwwhwefcb [Moles/Vol]0.58 mmol/LNormal 0.45-0.74St. Rita's HospitalComment on above:Result Comment: NEW REFERENCE RANGEPerformed By: #### 38955-3, 21407-8 ####[facility] ([id number])[address] [facility], [address] [place] [address] 638[address]Nuxc Pcr nasal swabon 89-76-5388JLTP DNA ARSENIO+probe Ql (Unsp spec)NegativeNegative^NegativeProAdams County Regional Medical CenterMyoglobin [Mass/Vol]on 01-01-2475MVWIR LIOZDTMHE58.5 ng/mLNormal 17.4-105.7ProMethodist Hospital AtascosaComment on above:Performed By: #### CBCA, CMP, 2157-6, PINR, 17024-5, 27910-1, 2639-3, 40309-0 ####[facility] ([id number])[address] [place] [address] Natriuretic peptide B [Mass/Vol]on 70-95-9407Rzeimpocsowkjo and review of laboratory resultsAbnormalOhioHealth Grant Medical CenterNatriuretic peptide B (Bld) [Mass/Vol]617 pg/mLHighNINF - 100.0 pg/mLOhioHealth Grant Medical CenterProAdams County Regional Medical CenterNatriuretic peptide B (Bld) [Mass/Vol]617 pg/mLHigh<100.0St. Rita's HospitalComment on above:Performed By: #### CMP, CBCA, 19542-9, 77886-5, 2777-1 ####[facility] ([id number])[address] [place] [address], [address] [place] [address]Du Panel Informationon 39-07-4748LmiGgnwxb Health SystemInterpretation and review of laboratory resultsAbnormalOhioHealth Grant Medical CenterProUniversity Hospitals Health System SystemPHOSPHORUSon 63-51-4949Qnsxygsep [Mass/Vol]4.8 mg/dLNormal2.4-4.9ProAkron Children'S HospitalComment on above:Performed By: #### CMP, CBCA, 89098-7, 25300-6, 2777-1 ####[facility] ([id number])[address] [place] [address], [address] [place] [address]HEFB ABG with NA, K, GLU, ICA and HCTon 77-82-7073Bocnzacf patency Wrist artery --pre arterial punctureProMedica Health SystemBase deficit (Bld) [Moles/Vol]5 mmol/LHighOhioHealth Grant Medical CenterCalcium.ionized (Bld) [Moles/Vol]4.2 mg/dLLow4.5 - 5.3 mg/dLSelect Medical Specialty Hospital - Boardman, Inc SystemCO2 (Bld) [Partial pressure]30.8 mm[Hg]LowOhioHealth Grant Medical CenterGlucose [Mass/Vol]173 mg/zQVfeq59 - 99 mg/dLOhioHealth Grant Medical CenterHCO3 (Bld) [Moles/Vol]19.1 mmol/LLowOhioHealth Grant Medical CenterHematocrit (Bld) [Volume fraction]22 %Low39 - 49 %[facility] Medical CenterInterpretation and review of laboratory resultsAbnormalSelect Medical Specialty Hospital [facility], Inc SystemOxygen (Bld) [Partial pressure]137 mm[Hg]HighSelect Medical Specialty Hospital - [facility]man, Inc SystemOxygen therapy source and amount [CARE]NCProAdams County Regional Medical CenterOxygen/Inspired gas setting [Volume Fraction] Rgjuurzuvh57 %[facility] Medical CenterpH (Bld)7.4 [pH] 7.350 - 7.450OhioHealth Grant Medical CenterPotassium [Moles/Vol]3.6 mmol/L3.5 - 5.0 mmol/LProMedBarnesville Hospital SystemSodium [Moles/Vol]140 mmol/L134 - 146 mmol/L [facility] Medical Centerpecimen site NarrativeALineOhioHealth Grant Medical Center Specimen type Nom (Spec)ARTERIALAurora Medical Center-Washington County System POTASSIUMon 91-05-9712Dwareolrp [Moles/Vol]3.7 mmol/LNormal3.5-5.0St. Rita's HospitalComment on above:Performed By: #### 2823-3 ####[facility] ([id number])[address] [facility], [address] [place] [address] 454[address]WEQUNBT AND INR on 63-31-4601QSD Coag (PPP) [Relative time]1.2 {INR}High0.8-1.1PSt. Vincent HospitalComment on above:Performed By: #### CBCA, CMP, 2157-6, PINR, 86868-2, 11865-6, 8639-3, 33769-4 ####[facility] ([id number])[address] [place], [place] [address]BP Coag (PPP) [Time]13.6 sHigh9.8-13.2 [facility] HospitalComment on above:Result Comment: NEW REFERENCE RANGE Performed By: #### CBCA, CMP, 2157-6, PINR, 32776-7, 06427-2, 2639-3, 81508-3 ####[facility] ([id number])[address] [place], [place] [address]Dqhchzpnksvg 08-32-1037Xwvvpbyti [Mass/Vol]4.8 mg/dL2.4 - 4.9 mg/dLSelect Medical Specialty Hospital - [facility], Inc SystemPotassiumon 65-76-5931Fectncwqp [Moles/Vol]3.7 mmol/L3.5 - 5.0 mmol/LPrParkwood Hospital SystemPotassium [Moles/Vol]on 03-08-2024 [facility] CenterProcalcitoninon 13-24-3923Xpfptfxndmfnr IA [Mass/Vol]0.26 ng/mLHighNINF - 0.05 ng/mLOhioHealth Grant Medical CenterProcalcitonin IA [Mass/Vol]on 36-69-1796Bknagaueosinic and review of laboratory resultsAbnormalTorrance State HospitalPROCALCITONIN0.26 ng/mLHigh<0.05St. Rita's HospitalComment on above:Result Comment: NOTE<0.50 ng/mL - Low risk of severe sepsis and/or septic shock.<2.00 ng/mL -Recommend retesting within 6-24 hours.>2.00 ng/mL - High risk of sepsis and/or septic shock.Performed By: #### 87798-6, 49565-9 ####[facility] ([id number])[address] [facility], [address], [place] [address]Eaqqmgfe I.cardiac High sensitivity method [Mass/Vol]on HOUR TROP I, HIGH TMVHKURGVOG79 ng/LHigh<21[facility] HospitalComment on above:Result Comment: Elevations of hs-Troponin may be due to causesother than myocardial ischemia.Recommend serial hs-Troponin testing be performed.For the initial evaluation and management of chestpain patients, refer to the algorithms linked below.Emergency Patient:[email or web address]&uh=[email or web address]:[email or web address]? [email or web address]&uh=acaeaPerformed By: #### 15113-1 ####[facility] ([id number])[address] [place] [address] 81251WOXTBFMA I, HIGH FDWACBCFTJJ73 ng/LHigh<21ProMethodist Hospital AtascosaComment on above:Result Comment: Elevations of hs-Troponin may be due to causesother than myocardial ischemia.Recommend serial hs-Troponin testing be performed.For the initial evaluation and management of chestpain patients, refer to the algorithms linked below.Emergency Patient:[email or web address]?d =[email or web address]&uh=acaeaInpatient:[email or web address]/dv/[email or web address]? [email or web address]&[email or web address]&uh=acaeaPerformed By: #### CBCA, CMP, 2157-6, PINR, 64229-4, 61370-2, 2639-3, 69064-4 ####[facility] ([id number])[address] [place] [address] 04356YJGKSJKDMRzg 74-17-4716Qqkfuekaq Ql (U)NegativeNormalNEGGuernsey Memorial HospitalComment on above:Performed By: #### UA ####[facility] ([id number])[address] [place] [address] 01295DFHZX/HGBSMALLAbnormalNEGGuernsey Memorial HospitalComment on above:Performed By: #### UA ####[facility] ([id number])[address] [place] [address] 36851Utsxt (U)YELLOWNormalYELLOW [facility] Cancer HospitalComment on above:Performed By: #### UA ####[facility] ([id number])[address] [place] [address] 28822Cpqpeya Ql (U)NegativeNormalNEGProRegional Medical Centerca Usc Kenneth Norris Jr. Cancer HospitalComment on above: Performed By: #### UA ####[facility] ([id number])[address] [place] [address] 45058Rozqrcx Ql (U)NegativeNormalNEGProMethodist Hospital AtascosaComment on above:Performed By: #### UA ####[facility] ([id number])[address] [place] [address] [phone] Leukocyte esterase Test strip Ql (U)SMALLAbnormalNEGGuernsey Memorial Hospital Comment on above:Performed By: #### UA ####[facility] ([id number])[address] [place] [address] [phone] Ql (U) NegativeNormalNEGProMethodist Hospital AtascosaComment on above:Performed By: #### UA ####[facility] ([id number])[address] [place] [address] 24202zV (U)5.5 [pH]Normal5.0-8.5PSt. [facility] Comment on above:Performed By: #### UA ####[facility] ([id number])[address] [place] [address] 21921Xrwhfxa Ql (U)30 mg/dLAbnormalNEGProMethodist Hospital AtascosaComment on above:Performed By: #### UA ####[facility] ([id number])[address] [place] [address] 21041I.B.CELLS0 /hpfNormal0-5PSt. Vincent HospitalComment on above:Performed By: #### UA ####[facility] ([id number])[address] [place] [address] 93290Bgqpjfsr gravity (U) [Rel density]1.025 Normal1.003-1.035ProMethodist Hospital AtascosaComment on above:Performed By: #### UA ####[facility] ([id number])[address] [place] [address] 67279MGDOOERS POUHHVKBPA74 /hpfHigh0-5PSt. Vincent HospitalComment on above:Performed By: #### UA ####[facility] ([id number])[address] [place] [address] 26181UVWLKBZWDESLZJD AbnormalCLEARPSt. Vincent HospitalComment on above:Performed By: #### UA ####[facility] ([id number])[address] [place] [address] 18637Negqjnekqe dipstick W Reflex Microscopic panel (U)URINE RECEIVED WITHOUT PRESERVATIVE-DELAYS IN TRANSPORT MAY AFFECT RESULTS.INTERPRET WITH CAUTION AND CLINICAL CORRELATION IS RECOMMENDED.NormalGuernsey Memorial Hospital Comment on above:Performed By: #### UA ####[facility] ([id number])[address] [place] [address] [phone] Qn (U)0.2 {Joan'U}/dLNormal<1.1PSt. Vincent HospitalComment on above: Performed By: #### UA ####[facility] ([id number])[address] [place] [address] 61330F.B.CELLS35 /hpfHigh0-5PSt. Vincent HospitalComment on above:Performed By: #### UA ####[facility] ([id number])[address] [place] [address] 68934EQSTJ CULTUREon [id number] identified Cx Nom (U)CULTURE RESULTS 50-100,000 ORGANISMS/ML NORMAL UROGENITAL FLORASelect [facility]ty [facility] Comment on above:Performed By: #### 630-4 ####[facility] ([id number])[address] [place] [address], [address], [place] [address]OFF MACROSCOPIC NURon [id number] NURNegativeNormalNEGGuernsey Memorial HospitalComment on above:Performed By: #### NUM ####[facility] ([id number])[address] [place] [address], [facility], [place] [address]EDRDC/HGB NURSmallAbnormalNEGGuernsey Memorial HospitalComment on above:Performed By: #### NUM ####[facility] ([id number])17 [place] [address], [facility], [place] [address]IIWVPGR NURNegativeNormalNEGGuernsey Memorial HospitalComment on above:Performed By: #### NUM ####[facility] ([id number])[address] [place] [address], [place] [address]SRNPNJY NURNegativeNormalNEGGuernsey Memorial Hospital Comment on above:Performed By: #### NUM ####[facility] ([id number])[address] [place] [address], [facility], [place] [address]FCWKPVHBH ESTERASE NURSmallAbnormalNEGGuernsey Memorial HospitalComment on above:Performed By: #### NUM ####[facility] ([id number])[address] [place] [address], [place] [address]DYBUBJM NURNegativeNormalNEGProMethodist Hospital AtascosaComment on above:Performed By: #### NUM ####[facility] ([id number])[address] [place] [address], [facility], [place] [address]SE NUR5.5Normal 5.0-8.5[facility] Jr. Cancer HospitalComment on above:Performed By: #### NUM ####[facility] ([id number])[address] [place] [address], [place] [address]ZMGFQYJ ETP011 mg/dLAbnormalNEGProMethodist Hospital AtascosaComment on above:Performed By: #### NUM ####[facility] ([id number])[address] [place] [address], [place] [address]YKNNFHCP GRAVITY NUR1.025Normal 1.003-1.035ProMethodist Hospital AtascosaComment on above:Performed By: #### NUM ####[facility] ([id number])[address] [place] [address] [place] [address]KKVDYOQICIFJ NUR0.2 eu/dLNormal<1.1[facility] Comment on above:Performed By: #### NUM ####[facility] ([id number])[address] [place] [address]DQRMNY BLOOD GAS on 37-71-2692JENJH'S TESTNormalProMethodist Hospital AtascosaComment on above: Performed By: #### VBG ####[facility] ([id number])[address] [place] [address] [place] [address]SEVF,XRGTPYK47.0 MMOL/LHigh0.0-2.0Guernsey Memorial HospitalComment on above:Performed By: #### VBG ####[facility] ([id number])[address] [place] [address] [place] [address]Epbg tfdjwswqasu84.6 [degF]Mnorux20.0ProMethodist Hospital AtascosaComment on above: Performed By: #### VBG ####[facility] ([id number])[address] [place] [address]ZVE9 (Bld) [Moles/Vol]15.9 mmol/LLow 20.0-24.0ProMethodist Hospital AtascosaComment on above:Performed By: #### VBG ####[facility] ([id number])[address] [place] [address], [place] [address]Lgqqkp saturation in Blood28.0 %Low>80.0Guernsey Memorial HospitalComment on above:Performed By: #### VBG ####[facility] ([id number])[address] [place] [address], [place] [address]SZYJNR SOURCENC NormalGuernsey Memorial HospitalComment on above:Performed By: #### VBG ####[facility] ([id number])[address] [place] [address], [place] [address]TGK0, BBFHYM16.9 PQXVUxb70-47ZufCgsehfGuernsey Memorial HospitalComment on above:Performed By: #### VBG ####[facility] ([id number])[address] [place] [address], [place] [address]OZ, VENOUS7.077Kzb4.320-7.420 [facility] Cancer HospitalComment on above:Performed By: #### VBG ####[facility] ([id number])[address] [place] [address], [place] [address]ZA[address], UAOUJU97 HSCMHiz01-53GmmNbzldsGuernsey Memorial HospitalComment on above: Performed By: #### VBG ####[facility] ([id number])[address] [place] [address], [place] [address]ZSDELW SITEN/ANormalGuernsey Memorial HospitalComment on above:Performed By: #### VBG ####[facility] ([id number])[address] [place] [address], [place] [address]EVEJUC TYPEVENOUS NormalGuernsey Memorial HospitalComment on above:Performed By: #### VBG ####[facility] ([id number])[address] [place] [address], [place] [address]WI CHEST 1 VWon 20-55-4085EW CHEST 1 VWNormalGuernsey Memorial HospitalaPTT Coag (PPP) [Time]on 42-51-1168rQFQ Coag (Bld) [Time]36 oUkebja46-86 [facility] Cancer HospitalComment on above:Result Comment: NEW REFERENCE RANGE Performed By: #### CBCA, CMP, 2157-6, PINR, 67649-8, 52005-9, 2639-3, 55340-9 ####[facility] ([id number])[address] [place] [address]Soyf, Bloodon 41-62-7523Tfak, BloodSpecimen Description .BLOOD Special Requests L AC,20ML Culture NO GROWTH 5 DAYS Report Status FINAL 02/12/2024[facility]ria Medical CenterComment on above: Performed By: #### AZN #### [facility] [address] [place] [address] Structural Drafter: Isidoro Mireles, MDCult,Bloodon 46-86-0305Zorm,BloodSpecimen Description .BLOOD Special Requests R AC, 20 ML Culture NO GROWTH 5 DAYS Report Status FINAL 02/12/2024NoRegency Hospital Cleveland WestComment on above: Performed By: #### BNP #### [facility] [address] [place] [address] Structural Drafter: Jason Rosario, Serumon 23-17-2895Hdfx, Serum29.8 ug/dLLow 60.0-120.0[facility] Medical CenterCompontiac general hospital on above:Result Comment: (NOTE) INTERPRETIVE INFORMATION: Zinc, Serum or Plasma Elevated results may be due to skin or collection-related contamination, including the use of a noncertified metal-free collection/transport tube. If contamination concerns exist due to elevated levels of serum/plasma zinc, confirmation with a second specimen collected in a certified metal-free tube is recommended. Circulating zinc concentrations are dependent on albumin status and are depressed with malnutrition. Zinc may also be lowered with infection, inflammation, stress, oral contraceptives, and . Zinc may be elevated with zinc supplementation or fasting. Elevated zinc concentrations may interfere with copper absorption. This test was developed and its performance characteristics determined by [employer]. It has not been cleared or approved by the [place] Food and Drug Administration. This test was performed in a CLIA certified laboratory and is intended for clinical purposes. Performed By: [facility] [employer] [address] [place] [address] Supervisor Sleeping Bag Department: Pa Summers MD, PhD CLIA Number: [id number] By: #### AZN #### [facility] [address] [place] [address] Structural Drafter: Eli Allen Metab w/rfx MGon 60-60-0088Ijpku gap [Moles/Vol]6 mmol/LLow9-16[facility] Campuscy Kramer HospitalComment on above:Performed By: #### AZN #### [facility] [address] [place] [address] Structural Drafter: Isidoro Mireles MDBUN/CRE Tlobv45Tqje5-88[facility] Comment on above:Performed By: #### AZN #### [facility] [address] [place] [address] Structural Drafter: KOFI Allenalcium [Mass/Vol]8.7 mg/dLNormal8.6-10.4[facility] Barber[facility] Campuscy Kramer HospitalComment on above:Performed By: #### AZN #### [facility] [address] [place] [address] Structural Drafter: KOFI Allenhloride [Moles/Vol]105 mmol/ZMfjnhn41-139Lfjbp Kramer HospitalComment on above:Performed By: #### AZN #### [facility] [address] [place] [address] Structural Drafter: Isidoro Mireles MDCO2 [Moles/Vol]25 mmol/EKscvor48-39Zcebk Kramer HospitalComment on above:Performed By: #### AZN #### [facility] [address] [place] [address] Structural Drafter: KOFI Allenreatinine [Mass/Vol]1.2 mg/dLNormal0.70-1.20 [facility] Medical CenterComment on above:Performed By: #### UZIELN #### [facility] [address] [place] [address] Structural Drafter: Isidoro Mireles MDGFR/1.73 sq M.predicted among non-blacks MDRD (S/P/Bld) [Vol rate/Area]64 mL/min/{1.73_m2}Normal>60[facility] Comment on above:Result Comment: These results are not intended for use in patients <18 years of age. eGFR results are calculated without a race factor using the 2020 CKD-EPI equation. Careful clinical correlation is recommended, particularly when comparing to results calculated using previous equations. The CKD-EPI equation is less accurate in patients with extremes of muscle mass, extra-renal metabolism of creatine, excessive creatine ingestion, or following therapy that affects renal tubular secretion.Performed By: #### UZIELN #### [facility] [address] [place] [address] Structural Drafter: Isidoro Mireles MDGlucose [Mass/Vol]138 mg/yFZtsk62-13OohjhWhite HospitalComment on above:Performed By: #### UZIELN #### [facility] [address] [place] [address] Structural Drafter: ALEXANDRIA Allenotassium [Moles/Vol]4.6 mmol/LNormal3.7-5.3MWhite HospitalComment on above:Performed By: #### AZN #### [facility] [address] [place], [place] [address] Structural Drafter: Isidoro Mireles MDSodium [Moles/Vol]136 mmol/QUyqeqi365-086RusiwMetrohealth Parma Medical CenterComment on above:Performed By: #### UZIELN #### [facility] [address] [place], [place] [address] Structural Drafter: Isidoro Mireles MDUrea nitrogen [Mass/Vol]25 mg/dLHigh8-23[facility] Medical CenterComment on above:Performed By: #### JOON #### [facility] [address] [place] [address] Structural Drafter: Eli Allen Metabolic Panel w/ Reflex to MGon 81-19-1116Dhkjh gap [Moles/Vol]6 mmol/LLow9 - 16 mmol/LBon [facility]Calcivis Health Calcium [Mass/Vol]8.7 mg/dL8.6 - 10.4 mg/dLBon SecCalcivis HealthChloride [Moles/Vol]105 mmol/L98 - 107 mmol/LBon SecCalcivis [facility] Medical CenterCO2 [Moles/Vol]25 mmol/L20 - 31 mmol/LBon [facility]inj[facility] HealthCreatinine [Mass/Vol]1.2 mg/dL0.70 - 1.20 mg/dLBon SecCalcivis HealthEst, Glom Filt Rate64- PINFBon Methodist Hospital Of SacramentoQuartzy [facility] Medical CenterComment on above: These results are not intended for use in patients <18 years of age. eGFR results are calculated without a race factor using the 2020 CKD-EPI equation. Careful clinical correlation is recommended, particularly when comparing to results calculated using previous equations. The CKD-EPI equation is less accurate in patients with extremes of muscle mass, extra-renal metabolism of creatine, excessive creatine ingestion, or following therapy that affects renal tubular secretion. Glucose [Mass/Vol]138 mg/mZNkdz29 - 99 mg/dLBon [facility] Shea Medical CenterDietBetter Interpretation and review of laboratory resultsAbnormalBon [facility] CenterHealth WildcattersSentara [facility]ifax [facility] Hospital Potassium [Moles/Vol]4.6 mmol/L3.7 - 5.3 mmol/LBon SecCalcivis [facility] Medical CenterSodium [Moles/Vol]136 mmol/L136 - 145 mmol/LBon [facility] Medical CenterDietBetterUrea nitrogen [Mass/Vol]25 mg/dLHigh8 - 23 mg/dLBon [facility] Medical CenterDietBetterUrea nitrogen/Creatinine [Mass ratio]21 mg/mgHigh9 - 20Bon [facility] ShawBon SecSumma Health Akron CampusCBC auto differentialon 29-52-2595Debxcdyip (Bld) [#/Vol]Bon SecHealth WildcattersSentara Halifax Regional HospitalBasophils/100 WBC (Bld)0 %0 - 2 %Bon [facility] She[facility] Medical CenterDietBetter Eosinophils (Bld) [#/Vol]Bon [facility] CenterHealth Wildcattersy HealthEosinophils/100 WBC (Bld)0 %Low 1 - 4 %[facility] Centery HealthErythrocyte distribution width (RBC) [Ratio]18.7 %High11.8 - 14.4 %[facility] Centery HealthHematocrit (Bld) [Volume fraction]27.4 %Low40.7 - 50.3 %[facility] Centery HealthHemoglobin (Bld) [Mass/Vol]9.0 g/dLLow 13.0 - 17.0 g/dLBon Secours [facility]illic[facility] Va Medical Centery [facility] Medical CenterImmature granulocytes (Bld) [#/Vol]0.14 10*3/uLBon Secours [facility] Medical Centery HealthImmature granulocytes/100 WBC (Bld)1 %Csgm2Bto Secours [facility] Centery HealthInterpretation and review of laboratory resultsAbnormalBon [facility] Centery HealthLymphocytes/100 WBC (Bld)5 %Low24 - 43 %[facility] Centery HealthLymphocytes/100 WBC (Bld)0.50 %LowBon Secours [facility] Hospital - AkronH (RBC) [Entitic mass]32.6 pg25.2 - 33.5 pgBon Secours [facility] Hospital - AkronHC (RBC) [Mass/Vol] 32.8 g/dL28.4 - 34.8 g/dLBon Secours Fostoria City HospitalMCV (RBC) [Entitic vol]99.3 fL 82.6 - 102.9 fLBon Secours [facility] Medical Centery HealthMonocytes/100 WBC (Bld)5 %3 - 12 %[facility] Centery HealthMonocytes/100 WBC (Bld)0.60 %[facility] Health Neutrophils/100 WBC (Bld)89 %High36 - 65 %[facility] Medical Centery [facility] CenterNucleated RBC/100 WBC (Bld) [Ratio]0.0 %0.0 per 100 WBCBon Secours Chillicothe Va Medical Centery HealthPlatelet mean volume (Bld) [Entitic vol]11.9 fL8.1 - 13.5 fLBon Secours [facility] Center Health Platelets (Bld) [#/Vol]110 10*3/uLLowBon Secours [facility] Medical Centery HealthRBC (Bld) [#/Vol] 2.76 10*6/uLLow4.21 - 5.77 m/uLBon Secours [facility] Medical Centery HealthSegmented neutrophils/100 WBC (Bld)9.96 %[facility] Memorial HospitalWBC other (Bld) [#/Vol]11.2Bon [facility] HospitalCBC with Diffon 06-80-0080Yjw. Basophil<0.10Gmdord1.00-0.20Mercy Kramer HospitalComment on above:Performed By: #### AZN #### [facility] [address] [place] [address] Structural Drafter: Jan Allen. Eosinophil<0.08Wmexlu9.00-0.44Mercy Kramer HospitalComment on above:Performed By: #### AZN #### [facility] [address] [place] [address] Structural Drafter: aJn Allen.Imm.Granulocyte0.14 k/uLNormal0.00-0.30Mercy Kramer HospitalComment on above:Performed By: #### AZN #### [facility] [address] [place] [address] Structural Drafter: Jan Allen.Neutrophil (Seg)9.96 k/uLHigh1.50-8.10Mercy Kramer HospitalComment on above:Performed By: #### AZN #### [facility] [address] [place] [address] Structural Drafter: Isidoro Mireles MDBasophils/100 WBC (Bld)0 %Normal0-2Mercy Kramer HospitalComment on above:Performed By: #### AZN #### [facility] [address] [place] [address] Structural Drafter: Isidoro Mireles MDEosinophils/100 WBC (Bld)0 %Low1-4Mercy Kramer HospitalComment on above:Performed By: #### AZN #### [facility] [address] [place] [address] Structural Drafter: Isidoro Mireles MDErythrocyte distribution width (RBC) [Ratio]18.7 %High11.8-14.4[facility] HospitalComment on above:Performed By: #### AZN #### [facility] [address] [place] [address] Structural Drafter: Isidoro Mireles MDHematocrit (Bld) [Volume fraction]27.4 %Low 40.7-50.3Mercy Kramer HospitalComment on above:Performed By: #### AZN #### [facility] [address] [place] [address] Structural Drafter: Isidoro Mireles MDHemoglobin (Bld) [Mass/Vol]9.0 g/dLLow13.0-17.0 [facility] HospitalComment on above:Performed By: #### AZN #### [facility] [address] [place] [address] Structural Drafter: Isidoro Mireles MDImmature granulocytes/100 WBC (Bld)1 %Tluo5Znohw [facility]ramer HospitalComment on above:Performed By: #### AZN #### [facility] [address] [place] [address] Structural Drafter: Isidoro Mireles MDLymphocytes (Bld) [#/Vol]0.50 10*3/uLLow1.10-3.70 [facility] HospitalComment on above:Performed By: #### AZN #### [facility] [address] [place] [address] Structural Drafter: Carroll Allenmphocytes/100 WBC (Bld)5 %Tlt73-33Bazjx Kramer HospitalComment on above:Performed By: #### AZN #### [facility] [address] [place] [address] Structural Drafter: MONALISA AllenCH (RBC) [Entitic mass]32.6 bxCxejwa00.2-33.5 [facility] HospitalComment on above:Performed By: #### AZN #### [facility] [address] [place] [address] Structural Drafter: MONALISA AllenCHC (RBC) [Mass/Vol]32.8 g/gJSisava09.4-34.8 [facility] HospitalComment on above:Performed By: #### AZN #### [facility] [address] [place] [address] Structural Drafter: MONALISA AllenCV (RBC) [Entitic vol]99.3 qPGhrcue18.6-102.9 [facility] HospitalComment on above:Performed By: #### AZN #### [facility] [address] [place] [address] Structural Drafter: MONALISA Allenonocytes (Bld) [#/Vol]0.60 10*3/uLNormal 0.10-1.20[facility] HospitalComment on above:Performed By: #### AZN #### [facility] [address] [place] [address] Structural Drafter: MONALISA Allenonocytes/100 WBC (Bld)5 %Normal3-12[facility] HospitalComment on above:Performed By: #### AZN #### [facility] [address] [place] [address] Structural Drafter: Farzana Allenophil (Seg)89 %Llva39-15Wnnii Tiffin HospitalComment on above:Performed By: #### AZN #### [facility] [address] [place] [address] Structural Drafter: Isidoro Mireles MDNRBC Automated0.0 per 100 WBCNormal0.0[facility] HospitalComment on above:Performed By: #### AZN #### [facility] [address] [place] [address] Structural Drafter: Marleni Allenlet mean volume (Bld) [Entitic vol]11.9 fL Normal8.1-13.5Mercy Kramer HospitalComment on above:Performed By: #### UZIELN #### [facility] [address] [place] [address] Structural Drafter: Iveth Allen (Bld) [#/Vol]110 10*3/rUIkb274-263Yvaul Kramer HospitalComment on above:Performed By: #### UZIELN #### [facility] [address] [place] [address] Structural Drafter: FLOR AllenBC (Bld) [#/Vol]2.76 10*6/uLLow4.21-5.77MerEast Liverpool City Hospital HospitalComment on above:Performed By: #### JOON #### [facility] [address] [place] [address] Structural Drafter: SONIDO Allen (Bld) [#/Vol]11.2 10*3/uLNormal3.5-11.3Mercy Kramer HospitalComment on above:Performed By: #### JOON #### [facility] [address] [place] [address] Structural Drafter: PANKAJ Allen2/Folate Panelon 33-21-8631Urzjurhnc (Vitamin B12) [Mass/Vol]526 pg/uDMxowsm999-6239Eeezr Tiffin HospitalComment on above: Performed By: #### UZIELN #### [facility] [address] [place] [address] Structural Drafter: Scott Allen Acid16.5 ng/mLNormal4.8-24.2Mer[facility] Kramer HospitalComment on above:Performed By: #### UZIELN #### [facility] [address] [place] [address] Structural Drafter: Eli Allen Metab w/rfx MGon 87-06-0202Hnkyx gap [Moles/Vol]8 mmol/LLow9-16[facility] HospitalComment on above:Performed By: #### BNP #### [facility] [address] [place] [address] [place] [address] Structural Drafter: Skyler Armendariz MDBUN/CRE Amfrf63Sczfpx2-57Tifyf [facility] Comment on above:Performed By: #### BNP #### [address] [place] [address] Structural Drafter: KOFI Rosarioalcium [Mass/Vol]8.7 mg/dLNormal8.6-10.4[facility] Medical CenterComment on above:Performed By: #### BNP #### [address] [place] [address] Structural Drafter: KOFI Rosariohloride [Moles/Vol]103 mmol/IHsmcny67-958Fuajh [facility]iff[facility] HospitalComment on above:Performed By: #### BNP #### [address] [place] [address] Structural Drafter: KOFI RosarioO2 [Moles/Vol]24 mmol/HLoeypo43-03ItpthMetrohealth Parma Medical CenterComment on above:Performed By: #### BNP #### [address] [place] [address] Structural Drafter: KOFI Rosarioreatinine [Mass/Vol]1.3 mg/dLHigh0.70-1.20[facility] HospitalComment on above:Performed By: #### BNP #### [facility] [address] [place] [address] [place] [address] Structural Drafter: Skyler Armendariz MDGFR/1.73 sq M.predicted among non-blacks MDRD (S/P/Bld) [Vol rate/Area]56 mL/min/{1.73_m2}Low>60MerEast Liverpool City Hospital HospitalComment on above:Result Comment: These results are not intended for use in patients <18 years of age. eGFR results are calculated without a race factor using the 2020 CKD-EPI equation. Careful clinical correlation is recommended, particularly when comparing to results calculated using previous equations. The CKD-EPI equation is less accurate in patients with extremes of muscle mass, extra-renal metabolism of creatine, excessive creatine ingestion, or following therapy that affects renal tubular secretion.Performed By: #### BNP #### [address] [place], [place] [address] Structural Drafter: Skyler Armendariz MDGlucose [Mass/Vol]161 mg/iXTdcw40-78UkufwWhite HospitalComment on above:Performed By: #### BNP #### [address] [place] [address] Structural Drafter: ALEXANDRIA Rosariootassium [Moles/Vol]4.2 mmol/LNormal3.7-5.3MUpper Valley Medical Center HospitalComment on above:Performed By: #### BNP #### [address] [place] [address] Structural Drafter: NOAH Rosarioodium [Moles/Vol]135 mmol/ZRxo448-716ZzrffMetrohealth Parma Medical CenterComment on above:Performed By: #### BNP #### [address] [place] [address] Structural Drafter: Skyler Armendariz MDUrea nitrogen [Mass/Vol]17 mg/dLNormal8-23[facility] Medical CenterComment on above:Performed By: #### BNP #### [address] [place], [place] [address] Structural Drafter: Skyler Armendariz MDBasic Metabolic Panel w/ Reflex to MGon 02-09-2024 Anion gap [Moles/Vol]8 mmol/LLow9 - 16 mmol/LBon [facility] HealthCalcium [Mass/Vol]8.7 mg/dL8.6 - 10.4 mg/dLBon Secours Chillicothe Va Medical Centery HealthChloride [Moles/Vol] 103 mmol/L98 - 107 mmol/LBon [facility], Edwin ShawCO2 [Moles/Vol]24 mmol/L20 - 31 mmol/LBon [facility], [facility] ShawCreatinine [Mass/Vol]1.3 mg/dLHigh0.70 - 1.20 mg/dLBon [facility], [facility] ShawEst, Glom Filt Qrml84Vqp- PINFBon [facility], Edwin ShawComment on above: These results are not intended for use in patients <18 years of age. eGFR results are calculated without a race factor using the 2020 CKD-EPI equation. Careful clinical correlation is recommended, particularly when comparing to results calculated using previous equations. The CKD-EPI equation is less accurate in patients with extremes of muscle mass, extra-renal metabolism of creatine, excessive creatine ingestion, or following therapy that affects renal tubular secretion. Glucose [Mass/Vol]161 mg/nNAwgg23 - 99 mg/dLBon [facility] Interpretation and review of laboratory resultsAbnormVCU Medical Center Potassium [Moles/Vol]4.2 mmol/L3.7 - 5.3 mmol/LBon [facility], Edwin ShawSodium [Moles/Vol]135 mmol/RTff648 - 145 mmol/LBon [facility], Edwin ShawUrea nitrogen [Mass/Vol]17 mg/dL8 - 23 mg/dLBon [facility], Edwin ShawUrea nitrogen/Creatinine [Mass ratio]13 mg/mg9 - 20Bon [facility] HospitalBrain Natri. Peptideon 01-84-9533Ewtvdmvlinq peptide B (Bld) [Mass/Vol]3670 pg/mLHigh 0-450[facility] Medical CenterComment on above:Performed By: #### BNP #### [facility] [address] [place] [address] Structural Drafter: Skyler Armendariz MDBrain Natriuretic Peptideon 02-09-2024 Interpretation and review of laboratory resultsAbnormVCU Medical Center Natriuretic peptide B (Bld) [Mass/Vol]3670 pg/mLHigh0 - 450 pg/mLBon [facility] HospitalCBC auto differentialon [id number] (Bld) [#/Vol]0.00 10*3/uLBon Secours Fostoria City HospitalBasophils/100 WBC (Bld)0 %0 - 2 %[facility] Medical CenterEosinophils (Bld) [#/Vol]0.00 10*3/uLBon Secours Fostoria City HospitalEosinophils/100 WBC (Bld)0 %Low1 - 4 %[facility] Medical CenterErythrocyte distribution width (RBC) [Ratio]19.2 %High11.8 - 14.4 %[facility] Hematocrit (Bld) [Volume fraction]27.7 %Low40.7 - 50.3 %[facility] Hemoglobin (Bld) [Mass/Vol]9.3 g/dLLow13.0 - 17.0 g/dLBon [facility] Immature granulocytes (Bld) [#/Vol]0.00 10*3/uLBon [facility], [facility] ShawImmature granulocytes/100 WBC (Bld)0 %0[facility] Medical CenterInterpretation and review of laboratory resultsAbnormalBon [facility], Edwin ShawLymphocytes/100 WBC (Bld)5 %Low24 - 43 %[facility] [facility] CenterLymphocytes/100 WBC (Bld)0.58 %LowBon Greene Memorial HospitalH (RBC) [Entitic mass]33.3 pg25.2 - 33.5 pgBon Greene Memorial HospitalHC (RBC) [Mass/Vol]33.6 g/dL28.4 - 34.8 g/dLBon SecKettering Health SpringfieldV (RBC) [Entitic vol]99.3 fL82.6 - 102.9 fLSentara [facility] Monocytes/100 WBC (Bld)3 %3 - 12 %[facility] CenterMonocytes/100 WBC (Bld)0.35 %[facility] CenterMorphology Erik (Bld) [Interp]Platelet scan shows Normal PlateletsSentara Williamsburg Regional Medical CenterNeutrophils/100 WBC (Bld)92 %High 36 - 65 %[facility] CenterNucleated RBC/100 WBC (Bld) [Ratio]0.0 %0.0 per 100 WBCBon Secours Mercy HealthPlatelet mean volume (Bld) [Entitic vol]12.0 fL 8.1 - 13.5 fLBon [facility], Edwin ShawPlatelets (Bld) [#/Vol]110 10*3/uLLowBon [facility], [facility] ShawRBC (Bld) [#/Vol]2.79 10*6/uLLow4.21 - 5.77 m/uLBon [facility] ShawSegmented neutrophils/100 WBC (Bld)10.67 %HighBon [facility], [facility] ShawWBC other (Bld) [#/Vol]11.6HighBon [facility] HospitalCBC with Diffon [id number]. Basophil0.00 k/uLNormal0.0-0.2Mercy Kramer HospitalComment on above:Performed By: #### BNP #### [address] [place] [id number] Structural Drafter: Jan Rosario.Imm.Granulocyte0.00 k/uLNormal0.00-0.30MerEast Liverpool City Hospital HospitalComment on above:Performed By: #### BNP #### [address] [place] [address] Structural Drafter: Jan Rosario.Neutrophil (Seg)10.67 k/uLHigh1.50-8.10Mercy Kramer HospitalComment on above:Performed By: #### BNP #### [address] [place] [address] Structural Drafter: Skyler Armendariz MDBasophils/100 WBC (Bld)0 %Normal0-2Mercy Kramer HospitalComment on above:Performed By: #### BNP #### [address] [place] [address]83 Structural Drafter: Skyler Armendariz MDEosinophils (Bld) [#/Vol]0.00 10*3/uLNormal 0.00-0.44Mercy Kramer HospitalComment on above:Performed By: #### BNP #### [address] [place] [address] Structural Drafter: Skyler Armendariz MDEosinophils/100 WBC (Bld)0 %Low1-4Mercy Kramer HospitalComment on above:Performed By: #### BNP #### [address] [place], [place] [id number] Structural Drafter: Skyler Armendariz MDImmature granulocytes/100 WBC (Bld)0 %Dyagal5Bzgui Kramer HospitalComment on above:Performed By: #### BNP #### [address] [place], [place] [address]83 Structural Drafter: Skyler Armendariz MDLymphocytes (Bld) [#/Vol]0.58 10*3/uLLow1.10-3.70 [facility] HospitalComment on above:Performed By: #### BNP #### [address] [place], [place] [address]83 Structural Drafter: Carroll Rosariomphocytes/100 WBC (Bld)5 %Osi63-42Geljc Kramer HospitalComment on above:Performed By: #### BNP #### [address] [place], [place] [address] Structural Drafter: MONALISA Rosarioonocytes (Bld) [#/Vol]0.35 10*3/uLNormal0.10-1.20 [facility] HospitalComment on above:Performed By: #### BNP #### [address] [place], [place] [id number] Structural Drafter: MONALISA Rosarioonocytes/100 WBC (Bld)3 %Normal3-12Mercy Kramer HospitalComment on above:Performed By: #### BNP #### [address] [place], [place] 3[address] Structural Drafter: MONALISA Rosarioorphology Erik (Bld) [Interp]Platelet scan shows Normal PlateletsNormalMetrohealth Parma Medical CenterComment on above:Performed By: #### BNP #### [address] [place], [place] [address]83 Structural Drafter: Skyler Armendariz MDNeutrophil (Seg)92 %Ybdx34-92Jqfej [facility] Comment on above:Performed By: #### BNP #### [address] [place] [address] Structural Drafter: Skyler Armendariz MDErythrocyte distribution width (RBC) [Ratio]19.2 % High11.8-14.4[facility]ma Medical CenterComment on above:Performed By: #### BNP #### [address] [place] [address] Structural Drafter: Skyler Armendariz MDHematocrit (Bld) [Volume fraction]27.7 %Low 40.7-50.3Mmetrohealth parma medical centery Kramer HospitalComment on above:Performed By: #### BNP #### [address] [place] [address] Structural Drafter: Skyler Armendariz MDHemoglobin (Bld) [Mass/Vol]9.3 g/dLLow13.0-17.0 [facility] Medical CenterComment on above:Performed By: #### BNP #### [address] [place], [place] [address]83 Structural Drafter: MONALISA RosarioCH (RBC) [Entitic mass]33.3 bjGqgthd78.2-33.5 [facility] HospitalComment on above:Performed By: #### BNP #### [address] [place] [address] Structural Drafter: MONALISA RosarioCHC (RBC) [Mass/Vol]33.6 g/zQDhyjqw77.4-34.8[facility] HospitalComment on above:Performed By: #### BNP #### [address] [place] [address] Structural Drafter: MONALISA RosarioCV (RBC) [Entitic vol]99.3 yADpabnu95.6-102.9 [facility] HospitalComment on above:Performed By: #### BNP #### [address] [place] [address] Structural Drafter: HIRAM Rosario Automated0.0 per 100 WBCNormal0.0[facility] HospitalComment on above:Performed By: #### BNP #### [address] [place] [address] Structural Drafter: Tabitha Rosario mean volume (Bld) [Entitic vol]12.0 fL Normal8.1-13.5[facility] HospitalComment on above:Performed By: #### BNP #### [address] [place] [address] Structural Drafter: Iveth Rosario (Bld) [#/Vol]110 10*3/oQHbj595-634Tqufu [facility] HospitalComment on above:Performed By: #### BNP #### [address] [place], [facility] Structural Drafter: TEQUILA Rosario (Bld) [#/Vol]2.79 10*6/uLLow4.21-5.77[facility] HospitalComment on above:Performed By: #### BNP #### [address] [place] [address] Structural Drafter: SONIDO Rosario (Bld) [#/Vol]11.6 10*3/uLHigh3.5-11.3Mercy Kramer HospitalComment on above:Performed By: #### BNP #### [facility] [address] [place] [address] Structural Drafter: KOFI Rosarioardiac echo study Procedureon [id number] Sinus Valsalva3.2 cmBon Secours Mercy HealthAortic Sinus Valsalva Index1.77 cm/m2[facility] HealthAscending Aorta3.3 cmBon Secours Mer[facility] Health Ascending Aorta Index1.82 cm/m2Bon [facility] Mercy HealthAV Area by Peak Velocity 1.6 cm2Bon [facility] Mercy HealthAV Area by VTI1.7 cm2Bon [facility]ours Mercy HealthAV Mean Nyzjghol19kpFpFnx Secours Mercy HealthAV Mean Velocity1.6 m/sBon Secours Mercy HealthAV Peak Rqouepph26bxXvObk Secours Mercy HealthAV Peak Velocity2.3 m/sBon Secours Mercy HealthAV Velocity Ratio0.52Bon Secours Mercy HealthAV VTI 51.6 cmBon Secours Mercy HealthAVA/BSA Peak Velocity0.9 cm2/m2[facility] HealthAVA/BSA VTI0.9 cm2/m2[facility] HealthBody surface area Derived from formula1.89 m2Bon [facility] Mercy HealthE/E' Dmnunhx29.32Bon [facility] Mercy HealthEF BP64 %55 - 100 %[facility] HealthEst. RA Ymglpeio8bnZxElj Secours Mercy HealthFractional Shortening 2D33 %28 - 44 %[facility] HealthInterpretation and review of laboratory resultsAbnormalBon Secours Mercy HealthIVSd1.4 cmAbnormal0.6 - 1.0 cmBon Secours Mercy HealthLA Area 2C20.1 cm2 [facility] Mercy HealthLA Area 4C21.3 cm2Bon Secours Mercy HealthLA Major [place] 5.9 cmBon Secours Mercy HealthLA Minor Axis6.1 cmBon Secours Mercy HealthLA Volume BP58 mL18 - 58 mLBon Secours Mercy HealthLA Volume Index BP32 ml/m216 - 34 ml/m2Bon Secours Mercy HealthLA Volume Index MOD A2C30 ml/m216 - 34 ml/m2Bon [facility] Mercy HealthLA Volume Index MOD A4C33 ml/m216 - 34 ml/m2Bon [facility] Mercy HealthLA Volume MOD A2C54 mL18 - 58 mLBon Secours Mercy HealthLA Volume MOD A4C60 pADxmpnelr95 - 58 mLBon Secours Mercy HealthLV E' Lateral Velocity9.46 cm/sBon Secours Mercy HealthLV EDV A2C62 mLBon Secours Mercy HealthLV EDV A4C61 mLBon Secours Mercy HealthLV EDV Index A2C34 mL/m2Bon [facility] Mercy HealthLV EDV Index A4C34 mL/m2Bon [facility] Mercy HealthLV Ejection Fraction A2C66 %[facility] Mer[facility] HealthLV Ejection Fraction A4C60 %[facility] Mer[facility] HealthLV ESV A2C21 mLBon Secours Mercy HealthLV ESV A4C25 mLBon Secours Mercy HealthLV ESV Index A2C12 mL/m2Bon [facility] Mercy HealthLV ESV Index A4C14 mL/m2Bon Secours Mercy HealthLV Mass 2D282.6 dOlejrfnk81 - 224 gBon Secours Mercy HealthLV Mass 2D Mymgc639.1 g/r7Vagtxuuu42 - 115 g/m2Bon [facility]ours Mercy HealthLV RWT Ratio0.57 [facility] Mer[facility] HealthLVIDd4.9 cm4.2 - 5.9 cmBon Secours Mercy HealthLVIDd Index2.71 cm/m2Bon [facility] Mercy HealthLVIDs3.3 cmBon Secours Mercy HealthLVIDs Index1.82 cm/m2[facility] HealthLVOT Area3.1 cm2[facility] LVOT Diameter2.0 cmBon Secours Mercy HealthLVOT Mean Fceypfqb4drWaKuj Secours Mercy HealthLVOT Peak Ittlgdxw8mbUvKqr Secours Mercy HealthLVOT Peak Velocity1.2 m/sBon Secours Mercy HealthLVOT Stroke Volume Index47.9 mL/m2Bon Secours Mercy HealthLVOT SV86.7 mlBon Secours Mercy HealthLVOT VTI27.6 cmBon Secours Mercy HealthLVOT:AV VTI Index0.53Bon [facility] Mercy HealthLVPWd1.4 cmAbnormal0.6 - 1.0 cmBon Secours Mercy HealthMV A Velocity1.17 m/sBon Secours Mercy HealthMV E Velocity1.26 m/sBon Secours Mercy HealthMV E Wave Deceleration Siib958.0 msNorthern Cochise Community Hospital Secanabella BoxMV E/A1.08Bon Secanabella BoxPV Max Velocity1.1 m/sBon Secanabella BoxPV Peak Cqznpucn0mhRcZbr Secanabella Amin JxemjnIKRP07gbVnEkz Zafar Amin HealthSinotubular Junction2.6 cmNorthern Cochise [facility] Hospital Zafar BoxTR Max Velocity2.86 m/sBkenzie BoxTR Peak Nclgpcwb18hwTiCqi Zafar BoxLeft Ventricle: Normal left ventricular systolic function with a visually estimated EF of 60 - 65%. EF by 2D Simpsons Biplane is 64%. Left ventricle size is normal. Moderately increased wall thickness. Normal wall motion. Diastolic dysfunction present with normal LV EF. Aortic Valve: TAVR noted with no perivalvular leak. Mild stenosis of the aortic valve. AV mean gradient is 11 mmHg. AV area by continuity VTI is 1.7 cm2. Mitral Valve: Moderate annular calcification. Tricuspid Valve: Mild regurgitation. The estimated RVSP is 36 mmHg. No previous studies were available for comparison. Left Ventricle Normal left ventricular systolic function with a visually estimated EF of 60 - 65%. EF by 2D Simpsons Biplane is 64%. Left ventricle size is normal. Moderately increased wall thickness. Normal wall motion. Diastolic dysfunction present with normal LV EF. Right Ventricle Right ventricle size is normal. Normal systolic function. Left Atrium Left atrial volume index is normal (16-34 mL/m2). Right Atrium Right atrium size is normal. IVC/SVC IVC diameter is less than or equal to 21 mm and decreases greater than 50% during inspiration; therefore the estimated right atrial pressure is normal (~3 mmHg). IVC size is normal. Mitral Valve Moderate annular calcification. Mild regurgitation. Tricuspid Valve Valve structure is normal. Mild regurgitation. The estimated RVSP is 36 mmHg. Aortic Valve TAVR noted with no perivalvular leak. Mild stenosis of the aortic valve. AV mean gradient is 11 mmHg. AV area by continuity VTI is 1.7 cm2. Pulmonic Valve The pulmonic valve visualization is suboptimal but appears to be functioning normally. Physiologically normal regurgitation. No stenosis noted. Ascending Aorta Normal sized aortic root and ascending aorta. Pericardium No pericardial effusion. Study Details Image quality: adequate. TAVR- 23 mm Edward-Jose Cruz No contrast was given.BSMH CV CPACSSentara Williamsburg Regional Medical CenterRadiology Study observation (narrative)[facility] Medical CenterCult,Urineon [id number],UrineSpecimen Description .CLEAN CATCH URINE Special Requests Site: Urine Culture PSEUDOMONAS AERUGINOSA 10 to 50,000 CFU/ML Report Status FINAL 02/09/2024 SUSCEPTIBILITY Organism PSEUDOMONAS AERUGINOSA Method BECKA Amikacin <=2 SUSCEPTIBLE Cefepime 2 SUSCEPTIBLE Levofloxacin 0.5 SUSCEPTIBLE Meropenem <=0.25 SUSCEPTIBLE Piperacillin/Tazobactam 8 SUSCEPTIBLE Tobramycin <=1 SUSCEPTIBLESusceptibleMetrohealth Parma Medical CenterComment on above: Performed By: #### BNP #### [facility] [address] [place] [address] Structural Drafter: Gordo Rosario, Urineon [id number] and review of laboratory resultsAbnormalSentara Williamsburg Regional Medical CenterMicroorganism identified Cx Nom (Unsp spec)PSEUDOMONAS AERUGINOSA 10 to 50,000 CFU/MLAbnormal [facility] CenterService comment (Unsp spec) [Interp]Site: [facility] SystemSpecimen Description.CLEAN CATCH URINEInova Children's HospitalEKG Rhythm Stripon [id number] Regional Medical CenterVitamin B12 & Folateon [id number] (Vitamin B12) [Mass/Vol] 526 pg/mL232 - 1245 pg/mLSentara Williamsburg Regional Medical CenterFolate [Mass/Vol]16.5 ng/mL4.8 - 24.2 ng/mLInova Children's HospitalB12/Folate Panelon 57-70-2444Dgbsdervu (Vitamin B12) [Mass/Vol]493 pg/lFJpzais425-1185Sgitb [facility] HospitalComment on above:Performed By: #### AZN #### [facility] [address] [place] [address] Structural Drafter: Scott Allen Acid25.8 ng/mLHigh4.8-24.2Mercy Kramer HospitalComment on above:Performed By: #### AZN #### [facility] [address] [place] [address] Structural Drafter: Eli Allen Metab w/rfx MGon 23-62-5958Dipds gap [Moles/Vol]7 mmol/LLow9-16[facility] HospitalComment on above:Performed By: #### BMPX #### [address] [place] [address] Structural Drafter: Skyler Armendariz MDBUN/CRE Ipzsm11Upshhq2-19Kimbs [facility] Comment on above:Performed By: #### BMPX #### [address] [place] [address] Structural Drafter: KOFI Rosarioalcium [Mass/Vol]7.8 mg/dLLow8.6-10.4MerEast Liverpool City Hospital HospitalComment on above:Performed By: #### BMPX #### [address] [place] [address] Structural Drafter: KOFI Rosariohloride [Moles/Vol]102 mmol/NZkngbv85-945Bxbux [facility] HospitalComment on above:Performed By: #### BMPX #### [address] [place] [address] Structural Drafter: Skyler Armendariz MDCO2 [Moles/Vol]22 mmol/THnqqbv46-93Bdpjs [facility] HospitalComment on above:Performed By: #### BMPX #### [address] [place] [address] Structural Drafter: KOFI Rosarioreatinine [Mass/Vol]1.1 mg/dLNormal0.70-1.20MerEast Liverpool City Hospital HospitalComment on above:Performed By: #### BMPX #### [address] [place] [address] Structural Drafter: Skyler Armendariz MDGFR/1.73 sq M.predicted among non-blacks MDRD (S/P/Bld) [Vol rate/Area]70 mL/min/{1.73_m2}Normal>60[facility] Comment on above:Result Comment: These results are not intended for use in patients <18 years of age. eGFR results are calculated without a race factor using the 2020 CKD-EPI equation. Careful clinical correlation is recommended, particularly when comparing to results calculated using previous equations. The CKD-EPI equation is less accurate in patients with extremes of muscle mass, extra-renal metabolism of creatine, excessive creatine ingestion, or following therapy that affects renal tubular secretion.Performed By: #### BMPX #### [address] [place] [address] Structural Drafter: Skyler Armendariz MDGlucose [Mass/Vol]210 mg/oSIqsx59-21EjvcaWhite HospitalComment on above:Performed By: #### BMPX #### [address] [place] [address] Structural Drafter: ALEXANDRIA Rosariootassium [Moles/Vol]4.6 mmol/LNormal3.7-5.3MWhite HospitalComment on above:Performed By: #### BMPX #### [address] [place] [address] Structural Drafter: NOAH Rosarioodium [Moles/Vol]131 mmol/VGkj940-851DyprhMetrohealth Parma Medical CenterComment on above:Performed By: #### BMPX #### [address] [place] [address] Structural Drafter: Skyler Armendariz MDUrea nitrogen [Mass/Vol]13 mg/dLNormal8-23[facility] Medical CenterComment on above:Performed By: #### BMPX #### [address] [place] [address] Structural Drafter: Skyler Armendariz MDJohnson [facility] Metabolic Panel w/ Reflex to MGon 02-08-2024 Anion gap [Moles/Vol]7 mmol/LLow9 - 16 mmol/LBon SecAstria Toppenish HospitalQuartzy [facility] Medical CenterCalcium [Mass/Vol]7.8 mg/dLLow8.6 - 10.4 mg/dLBon SecPointe Coupee General Hospital HealthChloride [Moles/Vol]102 mmol/L98 - 107 mmol/LBon SecPointe Coupee General Hospital HealthCO2 [Moles/Vol]22 mmol/L20 - 31 mmol/LBon SecSumma Health Akron CampusCreatinine [Mass/Vol]1.1 mg/dL0.70 - 1.20 mg/dLBon Secours Chillicothe Va Medical CenterQuartzy [facility] Medical CenterEst, Glom Filt Rate70- PINFBon Methodist Hospital Of SacramentoQuartzy [facility] Medical CenterComment on above: These results are not intended for use in patients <18 years of age. eGFR results are calculated without a race factor using the 2020 CKD-EPI equation. Careful clinical correlation is recommended, particularly when comparing to results calculated using previous equations. The CKD-EPI equation is less accurate in patients with extremes of muscle mass, extra-renal metabolism of creatine, excessive creatine ingestion, or following therapy that affects renal tubular secretion. Glucose [Mass/Vol]210 mg/zHBenp26 - 99 mg/dLBon [facility] Interpretation and review of laboratory resultsAbnormalBon [facility] Potassium [Moles/Vol]4.6 mmol/L3.7 - 5.3 mmol/LBon SecSumma Health Akron CampusSodium [Moles/Vol]131 mmol/WJbr646 - 145 mmol/LBon [facility] ShawUrea nitrogen [Mass/Vol]13 mg/dL8 - 23 mg/dLBon [facility] ShawUrea nitrogen/Creatinine [Mass ratio]12 mg/mg9 - 20Bon SecPointe Coupee General Hospital HealthBon SecSumma Health Akron CampusCBC auto differentialon [id number] (Bld) [#/Vol]0.00 10*3/uLBon Secours [facility]illicothe Va Medical CenterQuartzy [facility] Medical CenterBasophils/100 WBC (Bld)0 %0 - 2 %Bon SecSumma Health Akron CampusEosinophils (Bld) [#/Vol]0.00 10*3/uLBon Secours Chillicothe Va Medical Centery [facility] Medical CenterEosinophils/100 WBC (Bld)0 % Low1 - 4 %[facility] Medical CenterErythrocyte distribution width (RBC) [Ratio] 19.5 %High11.8 - 14.4 %[facility] Medical CenterHematocrit (Bld) [Volume fraction]25.3 %Low40.7 - 50.3 %[facility] Medical CenterHemoglobin (Bld) [Mass/Vol]8.6 g/dLLow13.0 - 17.0 g/dLBon SecSumma Health Akron CampusImmature granulocytes (Bld) [#/Vol]0.00 10*3/uLBon [facility] ShawImmature granulocytes/100 WBC (Bld)0 %0Sent[facility] CenterInterpretation and review of laboratory resultsAbnormalBon [facility] ShawLymphocytes/100 WBC (Bld)11 %Low24 - 43 %[facility] CenterLymphocytes/100 WBC (Bld)0.55 %LowBon [facility] HospitalH (RBC) [Entitic mass]32.8 pg25.2 - 33.5 pgSouthampton Memorial HospitalHC (RBC) [Mass/Vol]34.0 g/dL28.4 - 34.8 g/dLBon Greene Memorial HospitalV (RBC) [Entitic vol]96.6 fL82.6 - 102.9 fLSentara Williamsburg [facility] Monocytes/100 WBC (Bld)2 %Low3 - 12 %[facility] CenterMonocytes/100 WBC (Bld)0.10 %[facility] Medical CenterMorphology Erik (Bld) [Interp]Platelet scan shows Normal PlateletsSentara Williamsburg Regional Medical CenterMorphology Erik (Bld) [Interp] ANISOCYTOSIS PRESENTSentara Williamsburg Regional Medical CenterMorphology Erik (Bld) [Interp] POIKILOCYTOSIS PRESENTSentara Williamsburg Regional Medical CenterNeutrophils/100 WBC (Bld)87 %High 36 - 65 %[facility] CenterNucleated RBC/100 WBC (Bld) [Ratio]0.6 %High0.0 per 100 WBCSentara Williamsburg Regional Medical CenterPlatelet mean volume (Bld) [Entitic vol]11.4 fL8.1 - 13.5 fLBon Secours Mercy HealthPlatelets (Bld) [#/Vol]109 10*3/uLLowBon [facility] ShawRBC (Bld) [#/Vol]2.62 10*6/uLLow4.21 - 5.77 m/uLSentara Williamsburg Regional Medical CenterSegmented neutrophils/100 WBC (Bld)4.35 %Bon [facility], [facility] ShawWBC other (Bld) [#/Vol]5.0Bon [facility] HospitalCBC with Diffon [id number]. Basophil0.00 k/uLNormal0.0-0.2Mercy Kramer HospitalComment on above:Performed By: #### BMPX #### [address] [place] [address] Structural Drafter: Jan Rosario.Imm.Granulocyte0.00 k/uLNormal0.00-0.30MerEast Liverpool City Hospital HospitalComment on above:Performed By: #### BMPX #### [address] [place], [facility] Structural Drafter: Jan Rosario.Neutrophil (Seg)4.35 k/uLNormal1.50-8.10[facility] HospitalComment on above:Performed By: #### BMPX #### [address] [place], [facility]83 Structural Drafter: Skyler Armendariz MDBasophils/100 WBC (Bld)0 %Normal0-2Mer[facility] Kramer HospitalComment on above:Performed By: #### BMPX #### [address] [place] [address] Structural Drafter: Skyler Armendariz MDEosinophils (Bld) [#/Vol]0.00 10*3/uLNormal 0.00-0.44Mer[facility] Kramer HospitalComment on above:Performed By: #### BMPX #### [address] [place] [address] Structural Drafter: Skyler Armendariz MDEosinophils/100 WBC (Bld)0 %Low1-4Mercy Kramer HospitalComment on above:Performed By: #### BMPX #### [address] [place] [address] Structural Drafter: Skyler Armendariz MDImmature granulocytes/100 WBC (Bld)0 %Tktyqh9Bgpfo Kramer HospitalComment on above:Performed By: #### BMPX #### [address] [place], [place] [address] Structural Drafter: Skyler Armendariz MDLymphocytes (Bld) [#/Vol]0.55 10*3/uLLow1.10-3.70 [facility] HospitalComment on above:Performed By: #### BMPX #### [address] [place], [facility] Structural Drafter: Skyler Armendariz MDLymphocytes/100 WBC (Bld)11 %Ryp81-92Lidyh Kramer HospitalComment on above:Performed By: #### BMPX #### [address] [place] [address] Structural Drafter: MONALISA Rosarioonocytes (Bld) [#/Vol]0.10 10*3/uLNormal0.10-1.20 [facility] CenterCompontiac general hospital on above:Performed By: #### BMPX #### [address] [place], [place] [address] Structural Drafter: MONALISA Rosarioonocytes/100 WBC (Bld)2 %Low3-12Mercy Kramer HospitalComment on above:Performed By: #### BMPX #### [address] [place], [facility]83 Structural Drafter: MONALISA Rosarioorphology Erik (Bld) [Interp]Platelet scan shows Normal PlateletsNormalMetrohealth Parma Medical CenterComment on above:Result Comment: ANISOCYTOSIS PRESENT POIKILOCYTOSIS PRESENTPerformed By: #### BMPX #### [address] [place], [place] [address] Structural Drafter: Skyler Armendariz MDNeutrophil (Seg)87 %Wfzn55-02VehalMetrohealth Parma Medical Center Comment on above:Performed By: #### BMPX #### [address] [place] [address] Structural Drafter: Skyler Armendariz MDErythrocyte distribution width (RBC) [Ratio]19.5 % High11.8-14.4[facility] Medical CenterComment on above:Performed By: #### BMPX #### [address] [place], [place] [address] Structural Drafter: Skyler Armendariz MDHematocrit (Bld) [Volume fraction]25.3 %Low 40.7-50.3MWhite HospitalComment on above:Performed By: #### BMPX #### [address] [place], [place] [address] Structural Drafter: Skyler Armendariz MDHemoglobin (Bld) [Mass/Vol]8.6 g/dLLow13.0-17.0 [facility] HospitalComment on above:Performed By: #### BMPX #### [address] [place] [address] Structural Drafter: MONALISA RosarioCH (RBC) [Entitic mass]32.8 oaWkhrvd10.2-33.5 [facility] CenterComment on above:Performed By: #### BMPX #### [address] [place] [id number] Structural Drafter: MONALISA RosarioCHC (RBC) [Mass/Vol]34.0 g/sYFfhoct72.4-34.8[facility] HospitalComment on above:Performed By: #### BMPX #### [address] [place] [address] Structural Drafter: MONALISA RosarioCV (RBC) [Entitic vol]96.6 eLFfujiu72.6-102.9 [facility] CenterComment on above:Performed By: #### BMPX #### [address] [place] [address] Structural Drafter: HIRAM Rosario Automated0.6 per 100 WBCHigh0.0[facility] Parma Medical CenterComment on above:Performed By: #### BMPX #### [address] [place] [address] Structural Drafter: Tabitha Rosario mean volume (Bld) [Entitic vol]11.4 fL Normal8.1-13.5[facility] Parma Medical CenterComment on above:Performed By: #### BMPX #### [address] [place] [address] Structural Drafter: Iveth Rosario (Bld) [#/Vol]109 10*3/eVRjo638-878YibriMetrohealth Parma Medical CenterComment on above:Performed By: #### BMPX #### [address] [place] [address] Structural Drafter: FLOR RosarioBC (Bld) [#/Vol]2.62 10*6/uLLow4.21-5.77Met[facility]ma Medical CenterComment on above:Performed By: #### BMPX #### [address] [place] [address] Structural Drafter: SONIDO Rosario (Bld) [#/Vol]5.0 10*3/uLNormal3.5-11.3MWhite HospitalComment on above:Performed By: #### BMPX #### [facility] [address] [place], [place] [address] Structural Drafter: SHELTON Rosario Rhythm Stripon 68-78-0973HKDYOAVITA HEALTH SYSTEM LABBon [facility]Way[facility] LABBon SecPo[facility] HealthK (Potassium)on 79-18-8075Yhjafagbz [Moles/Vol]4.7 mmol/LNormal 3.7-5.3MWhite HospitalComment on above:Performed By: #### BMPX #### [facility] [address] [place] [address] Structural Drafter: Kimberly Rosario Panel Informationon 42-97-8274Fgoharqil Leukocyte Reduced Red CellBon [facility]Po[facility] HealthCrossmatch ResultCOMPATIBLEBon [facility] HealthDispense Status Blood BankTRANSFUSEDBon [facility]Po[facility] HealthTransfusion StatusOK TO TRANSFUSEBon [facility] HealthUnit Qoyotur8Duy SecAstria Toppenish Hospitaly HealthPotassiumon 75-86-7816Xebfgmekq [Moles/Vol]4.7 mmol/L3.7 - 5.3 mmol/LBon [facility] Centery HealthBon [facility]ery HealthTYPE AND SCREENon 69-36-0745ORO/RhPositiveBon [facility]ery HealthArm Band HrgpugET47036Eqi [facility]ery HealthBlood Bank Blood Product Expiration [id number] [facility]ery HealthBlood Bank Blood Product Expiration [id number] [facility] HealthBlood Bank ISBT Product Blood Crsn4929Rbq [facility]ery HealthBlood Bank ISBT Product Blood Vbpu255Ghx SecAstria Toppenish Hospitaly HealthBlood Bank Sample Brewenkces01/20/2024,2359[facility] HealthBlood Bank Unit Type and RhPositiveBon [facility] HealthBlood Bank Unit Type and RhNegativeBon [facility] HealthBlood product unit ID (Dose) [#][id number] [facility] HealthBlood product unit ID (Dose) [#][id number] Williamsburg Regional Medical CenterProduct Code Blood [id number] Williamsburg Regional Medical CenterProduct Code Blood [id number] Williamsburg Regional Medical CenterUnit Issue Date/[id number] Hospital Montgomeryit Issue Date/[id number] Children's HospitalTroponinon 29-20-0437Zfmulotc I.cardiac High sensitivity method [Mass/Vol]19 ng/L0 - 22 ng/LBon [facility], Edwin ShawComment on above:High Sensitivity Troponin values cannot be compared with other Troponin methodologies.[facility] Hospitaloponin, High Sens19 ng/LNormal0-22[facility] Medical CenterCompontiac general hospital on above:Result Comment: High Sensitivity Troponin values cannot be compared with other Troponin methodologies.Performed By: #### BMPX #### [facility] [address] [place] [address] [place] [address] Structural Drafter: Skyler Armendariz MDVitamin B12 & Folateon 83-55-5612Hvccvopge (Vitamin B12) [Mass/Vol]493 pg/mL232 - 1245 pg/mLSentara Williamsburg Regional Medical CenterFolate [Mass/Vol]25.8 ng/mLHigh4.8 - 24.2 ng/mLSentara Williamsburg Regional Medical CenterInterpretation and review of laboratory resultsAbnormalInova Children's HospitalArterial Blood Gaseson 72-36-5969Gomjd TestYESNoRegency Hospital Cleveland WestComment on above:Performed By: #### BNP #### [facility] [address] [place] [address] Structural Drafter: Skyler Armendariz MDBody Temp.37.0NoRegency Hospital Cleveland WestComment on above:Performed By: #### BNP #### [address] [place] [address] Structural Drafter: Skyler Armendariz MDWRYGF683KjndlhTfzicRegency Hospital Cleveland WestCompontiac general hospital on above: Performed By: #### BNP #### [address] [place], [place] [id number] Structural Drafter: Skyler Armendariz MDHCO3 (Bld) [Moles/Vol]22.9 mmol/SGvqcqs73-06Zqnrw [facility]iffin HospitalComment on above:Performed By: #### BNP #### [address] [place], [place] 1595383 Structural Drafter: Skyler Armendariz MDO2 Device/Flow/%ROOM AIRNormalFirelands Regional Medical Center HospitalComment on above:Performed By: #### BNP #### [address] [place], [place] 5901383 Structural Drafter: Skyler Armendariz MDOxygen (Bld) [Partial pressure]86.1 mm[Hg]Normal 80.0-100.0[facility] HospitalComment on above:Performed By: #### BNP #### [address] [place] [address] Structural Drafter: Skyler Armendariz MDOxygen saturation in Blood98.0 %Dohpzc14-05CtstjMetrohealth Parma Medical CenterComment on above:Performed By: #### BNP #### [address] [place] [address] Structural Drafter: Alexandria RosarioCO222.7 plNkEmc87-80Uonvn [facility]iffin HospitalComment on above:Performed By: #### BNP #### [address] [place] [address] Structural Drafter: Alexandria RosarioCO2 Adj'd for Temp22.7Low35.0-45.0[facility] HospitalComment on above:Performed By: #### BNP #### [address] [place], [place] 256[address]83 Structural Drafter: Alexandria RosarioH (Bld)7.622 [pH]Critically high7.35-7.45[facility] HospitalComment on above:Performed By: #### BNP #### [facility] [address] [place] [address] Dr[address] [place], [place] 6891383 Structural Drafter: Skyler Armendariz [facility] Adjst'd for Temp.7.622Critically high 7.350-7.450[facility] HospitalComment on above:Performed By: #### BNP #### [facility] [address] [place] [address] Dr[address] [place], [place] 7783683 Structural Drafter: Alexandria Rosario Adjst'd for Temp86.1 xtZrPwwvza45.0-100.0[facility] HospitalComment on above:Performed By: #### BNP #### [address] [place], [place] 1016283 Structural Drafter: Azalea Rosariotive Base Excess3.6 mmol/LHigh0.0-2.0[facility] HospitalComment on above:Performed By: #### BNP #### [address] [place], [place] 8[address]83 Structural Drafter: Perlita Rosario Critical access hospital Radial ArteryNoRegency Hospital Cleveland WestComment on above:Performed By: #### BNP #### [address] [place], [place] 22[address]283 Structural Drafter: Javier Rosario for RespiratoryCalled to PROVIDER on 02/07/2024 at 12:10NormTriHealthComment on above:Performed By: #### BNP #### [address] [place] [address] Structural Drafter: Eli Rosario Metab w/rfx MGon 64-01-9463Iqhfg gap [Moles/Vol]14 mmol/LNormal9-16[facility] HospitalComment on above:Performed By: #### BMPX #### [facility] [address] [place] [address] [place] [address] Structural Drafter: Skyler Armendariz MDBUN/CRE Otcwx51Qgilzm1-45Uqgyu [facility] Comment on above:Performed By: #### BMPX #### [address] [place], [place] 838[address]83 Structural Drafter: KOFI Rosarioalcium [Mass/Vol]8.0 mg/dLLow8.6-10.4[facility] Medical CenterComment on above:Performed By: #### BMPX #### [address] [place] [address]83 Structural Drafter: KOFI Rosariohloride [Moles/Vol]98 mmol/KEgtjlf90-910UwoxzMetrohealth Parma Medical CenterComment on above:Performed By: #### BMPX #### [address] [place] [address]83 Structural Drafter: KOFI RosarioO2 [Moles/Vol]24 mmol/RPkzdow20-38ZgtneMetrohealth Parma Medical CenterComment on above:Performed By: #### BMPX #### [address] [place], [facility]83 Structural Drafter: KOFI Rosarioreatinine [Mass/Vol]1.4 mg/dLHigh0.70-1.20[facility] Medical CenterComment on above:Performed By: #### BMPX #### [address] [place], [facility]83 Structural Drafter: Skyler Armendariz MDGFR/1.73 sq M.predicted among non-blacks MDRD (S/P/Bld) [Vol rate/Area]54 mL/min/{1.73_m2}Low>60[facility] Medical CenterComment on above:Result Comment: These results are not intended for use in patients <18 years of age. eGFR results are calculated without a race factor using the 2020 CKD-EPI equation. Careful clinical correlation is recommended, particularly when comparing to results calculated using previous equations. The CKD-EPI equation is less accurate in patients with extremes of muscle mass, extra-renal metabolism of creatine, excessive creatine ingestion, or following therapy that affects renal tubular secretion.Performed By: #### BMPX #### [address] [place], [place] 9098283 Structural Drafter: Skyler Armendariz MDGlucose [Mass/Vol]93 mg/yMIksqey59-96Rhxoz [facility] HospitalComment on above:Performed By: #### BMPX #### [address] [place] [address] Structural Drafter: ALEXANDRIA Rosariootassium [Moles/Vol]2.8 mmol/LCritically low 3.7-5.3MUpper Valley Medical Center HospitalComment on above:Performed By: #### BMPX #### [address] [place] [address] Structural Drafter: NOAH Rosarioodium [Moles/Vol]136 mmol/MIctkmc365-850JpekzMetrohealth Parma Medical CenterComment on above:Performed By: #### BMPX #### [address] [place], [place] 8971483 Structural Drafter: Skyler Armendariz MDUrea nitrogen [Mass/Vol]14 mg/dLNormal8-23[facility] Medical CenterComment on above:Performed By: #### BMPX #### [address] [place] [address] Structural Drafter: Skyler Armendariz MDBasi Metabolic Panel w/ Reflex to MGon 02-07-2024 Anion gap [Moles/Vol]14 mmol/L9 - 16 mmol/LBon Secours Mercy HealthCalcium [Mass/Vol]8.0 mg/dLLow8.6 - 10.4 mg/dLBon Secours Mercy HealthChloride [Moles/Vol]98 mmol/L98 - 107 mmol/LBon [facility]ours Mercy HealthCO2 [Moles/Vol]24 mmol/L20 - 31 mmol/LBon [facility]cy HealthCreatinine [Mass/Vol]1.4 mg/dLHigh 0.70 - 1.20 mg/dLBon [facility] Hospital Of SacramentoQuartzy [facility] Portage Medical CenterEst, Glomiguel angel Filt Rsrw18Zyf- PINFBon [facility] Hospital, Edwin ShawComment on above: These results are not intended for use in patients <18 years of age. eGFR results are calculated without a race factor using the 2020 CKD-EPI equation. Careful clinical correlation is recommended, particularly when comparing to results calculated using previous equations. The CKD-EPI equation is less accurate in patients with extremes of muscle mass, extra-renal metabolism of creatine, excessive creatine ingestion, or following therapy that affects renal tubular secretion. Glucose [Mass/Vol]93 mg/dL74 - 99 mg/dLBon [facility], [facility] ShawInterpretation and review of laboratory resultsAbnormalSentara Williamsburg Regional Medical CenterPotassium [Moles/Vol]2.8 mmol/LCritically low3.7 - 5.3 mmol/LBon [facility] Sodium [Moles/Vol]136 mmol/L136 - 145 mmol/LBon [facility] Rock'n RoverUrea nitrogen [Mass/Vol]14 mg/dL8 - 23 mg/dLBon [facility] Rock'n RoverUrea nitrogen/Creatinine [Mass ratio]10 mg/mg9 - 20Bon [facility] HospitalBlood Gas, Arterialon 65-60-3764Gxqwshtl patency Wrist artery --pre arterial punctureYESBon [facility] ShawBody siteLeft Radial ArteryBon [facility] Hospital, Edwin ShawHCO3 (Bld) [Moles/Vol]22.9 mmol/L22 - 26 mmol/LBon [facility] Rock'n RoverInterpretation and review of laboratory resultsAbnormalBon [facility] Rock'n RoverOxygen gas flow Oxygen delivery systemROOM AIRValley Health Rock'n RoverOxygen saturation in Blood98.0 %95 - 98 %[facility]over Oxygen/Inspired gas Respiratory system --on ebytbefdgj89Clo [facility]over pCO2, Art, Temp Adj22.7Low35.0 - 45.0Bon [facility] SacramentoNext Generation SystemspCO2, Clvgxhwd64.7 LowBon [facility], [facility] ShawpH, Art, Temp Adj7.622Critically high7.350 - 7.450Bon [facility] SacramentoQuartzy [facility] Portage Medical CenterpH, Arterial7.622Critically high7.35 - 7.45Bon [facility] Hospital, Edwin ShawpO2, Art, Temp Adj86.1Bon [facility] Hospital, Edwin ShawpO2, Zvthjxjb53.1Bon [facility], [facility] ShawPositive Base Excess, Art3.6 mmol/LHigh0.0 - 2.0 mmol/LBon [facility] ShawText for RespiratoryCalled to PROVIDER on 02/07/2024 at 12:10Bon [facility] Heart HospitalBlood Occult Stool Diagnosticon 48-33-5200Uwfg, Stool #[id number] [facility] Hemoglobin.gastrointestinal spec 1 Ql (Stl)NegativeNEGATIVEBon [facility] Hospital, [facility] ShawTime, Stool #[id number] [facility] Sacred Heart HospitalBrain Natri. Peptideon 35-43-6867Klyxsnxxwgb peptide B (Bld) [Mass/Vol]1050 pg/mLHigh 0-450MerBristol HospitalComment on above:Performed By: #### MG, LIP, TROPI, CP, BNP, CDP #### [facility] [address] [place] [address] [place] [address] Structural Drafter: Skyler Armendariz MDBrain Natriuretic Peptideon 64-71-7314Aiilynpnqlj peptide B (Bld) [Mass/Vol]1050 pg/mLHigh0 - 450 pg/mLSentara Williamsburg Regional Medical CenterCBC with Diffon 14-98-8303Mlegmbjpp (Bld) [#/Vol]0.08 10*3/uLSentara Williamsburg Regional Medical CenterBasophils/100 WBC (Bld)1 %0 - 2 %Sent[facility] Medical CenterEosinophils (Bld) [#/Vol]0.16 10*3/uLBon [facility], [facility] ShawEosinophils/100 WBC (Bld)2 %1 - 4 % Sent[facility] Regional Medical CenterErythrocyte distribution width (RBC) [Ratio]18.0 %High 11.8 - 14.4 %Sent[facility] Regional Medical CenterHematocrit (Bld) [Volume fraction]19.7 % Critically low40.7 - 50.3 %Sent[facility] Medical CenterHemoglobin (Bld) [Mass/Vol] 6.6 g/dLCritically low13.0 - 17.0 g/dLBon Sec[facility] Medical Centery HealthImmature granulocytes (Bld) [#/Vol]0.08 10*3/uLBon Secours Mercy HealthImmature granulocytes/100 WBC (Bld)1 %Fsrr4Yjx SecPointe Coupee General Hospital HealthInterpretation and review of laboratory resultsAbnormalBon [facility] Centery HealthLymphocytes/100 WBC (Bld)17 %Low24 - 43 %Bon [facility] Centery [facility] Medical CenterLymphocytes/100 WBC (Bld)1.36 %Bon [facility] HospitalH (RBC) [Entitic mass]34.2 tdWlro33.2 - 33.5 pgBon SecKettering Health SpringfieldHC (RBC) [Mass/Vol]33.5 g/dL28.4 - 34.8 g/dLBon SecKettering Health SpringfieldV (RBC) [Entitic vol]102.1 fL82.6 - 102.9 fLSentara Williamsburg Regional Medical Center Monocytes/100 WBC (Bld)10 %3 - 12 %[facility] Medical CenterMonocytes/100 WBC (Bld)0.80 %[facility] SecSumma Health Akron CampusMorphology Erik (Bld) [Interp]ANISOCYTOSIS PRESENTBon [facility] Hospital, [facility] ShawNeutrophils/100 WBC (Bld)69 %High36 - 65 %Bon SecSumma Health Akron CampusNucleated RBC/100 WBC (Bld) [Ratio]0.0 %0.0 per 100 WBCBon SecPointe Coupee General Hospital HealthPlatelet mean volume (Bld) [Entitic vol]11.9 fL8.1 - 13.5 fL [facility] SecPointe Coupee General Hospital HealthPlatelets (Bld) [#/Vol]142 10*3/uLBon [facility] HealthRBC (Bld) [#/Vol]1.93 10*6/uLLow4.21 - 5.77 m/uLBon SecPointe Coupee General Hospital Health Segmented neutrophils/100 WBC (Bld)5.52 %[facility] City HospitalWBC other (Bld) [#/Vol]8.0Bon [facility] Centery HealthBon [facility] Centery HealthAbs. Basophil0.08 k/uLNormal0.00-0.20MerBristol HospitalComment on above:Performed By: #### MG, LIP, TROPI, CP, BNP, CDP #### [address] [place], [place] [address] Structural Drafter: Jan Rosario.Imm.Granulocyte0.08 k/uLNormal0.00-0.30[facility] Medical CenterComment on above:Performed By: #### MG, LIP, TROPI, CP, BNP, CDP #### [address] [place] [address] Structural Drafter: Jan Rosario.Neutrophil (Seg)5.52 k/uLNormal1.50-8.10[facility] Medical CenterComment on above:Performed By: #### MG, LIP, TROPI, CP, BNP, CDP #### [address] [place] [address] Structural Drafter: Delmy Rosariosophils/100 WBC (Bld)1 %Normal0-2MWhite HospitalComment on above:Performed By: #### MG, LIP, TROPI, CP, BNP, CDP #### [address] [place] [address] Structural Drafter: ROSARIO Rosarioosinophils (Bld) [#/Vol]0.16 10*3/uLNormal 0.00-0.44[facility] Medical CenterComment on above:Performed By: #### MG, LIP, TROPI, CP, BNP, CDP #### [address] [place], [place] [address] Structural Drafter: ROSARIO Rosarioosinophils/100 WBC (Bld)2 %Normal1-4[facility] Medical CenterComment on above:Performed By: #### MG, LIP, TROPI, CP, BNP, CDP #### [address] [place] [address] Structural Drafter: Roland Rosario granulocytes/100 WBC (Bld)1 %Ibks1VittgMetrohealth Parma Medical CenterCompontiac general hospital on above:Performed By: #### MG, LIP, TROPI, CP, BNP, CDP #### [address] [place] [address] Structural Drafter: Skyler Armendariz MDLymphocytes (Bld) [#/Vol]1.36 10*3/uLNormal 1.10-3.70[facility] Medical CenterCompontiac general hospital on above:Performed By: #### MG, LIP, TROPI, CP, BNP, CDP #### [address] [place] [address] Structural Drafter: Carroll Rosariomphocytes/100 WBC (Bld)17 %Bth84-00ZlcpbMetrohealth Parma Medical CenterComment on above:Performed By: #### MG, LIP, TROPI, CP, BNP, CDP #### [address] [place], [place] [address] Structural Drafter: MONALISA Rosarioonocytes (Bld) [#/Vol]0.80 10*3/uLNormal0.10-1.20 [place] on above:Performed By: #### MG, LIP, TROPI, CP, BNP, CDP #### [address] [place], [place] [address] Structural Drafter: MONALISA Rosarioonocytes/100 WBC (Bld)10 %Normal3-12[facility] Medical CenterCompontiac general hospital on above:Performed By: #### MG, LIP, TROPI, CP, BNP, CDP #### [address] [place], [place] [address] Structural Drafter: MONLAISA Rosarioorphology Erik (Bld) [Interp]ANISOCYTOSISNormal [facility] Medical CenterCompontiac general hospital on above:Result Comment: PRESENTPerformed By: #### MG, LIP, TROPI, CP, BNP, CDP #### [facility] [address] [place] [address] Dr. [place], [place] 07[address]283 Structural Drafter: Skyler Armendariz MDNeutrophil (Seg)69 %Ynzw18-58SyabhMetrohealth Parma Medical Center Comment on above:Performed By: #### MG, LIP, TROPI, CP, BNP, CDP #### [address] [place], [facility]83 Structural Drafter: Skyler Armendariz MDErythrocyte distribution width (RBC) [Ratio]18.0 % High11.8-14.4[facility] HospitalComment on above:Performed By: #### MG, LIP, TROPI, CP, BNP, CDP #### [address] [place], [facility]83 Structural Drafter: Skyler Armendariz MDHematocrit (Bld) [Volume fraction]19.7 %Critically low40.7-50.3Mercy Kramer HospitalComment on above:Performed By: #### MG, LIP, TROPI, CP, BNP, CDP #### [address] [place], [facility]83 Structural Drafter: Skyler Armendariz MDHemoglobin (Bld) [Mass/Vol]6.6 g/dLCritically low 13.0-17.0[facility] HospitalComment on above:Performed By: #### MG, LIP, TROPI, CP, BNP, CDP #### [address] [place], [place] 37[address]483 Structural Drafter: MONALISA RosarioCH (RBC) [Entitic mass]34.2 nxKzcr42.2-33.5[facility] HospitalComment on above:Performed By: #### MG, LIP, TROPI, CP, BNP, CDP #### [address] [place], [place] [address]83 Structural Drafter: MONALISA RosarioCHC (RBC) [Mass/Vol]33.5 g/pUWqznjm97.4-34.8[facility] Medical CenterComment on above:Performed By: #### MG, LIP, TROPI, CP, BNP, CDP #### [address] [place], [place] [address]383 Structural Drafter: MONALISA RosarioCV (RBC) [Entitic vol]102.1 dQWwpbww03.6-102.9 [facility] CenterComment on above:Performed By: #### MG, LIP, TROPI, CP, BNP, CDP #### [address] [place] [address] Structural Drafter: HIRAM Rosario Automated0.0 per 100 WBCNormal0.0[facility] Medical CenterComment on above:Performed By: #### MG, LIP, TROPI, CP, BNP, CDP #### [address] [place] [address] Structural Drafter: Tabitha Rosario mean volume (Bld) [Entitic vol]11.9 fL Normal8.1-13.5[facility] Medical CenterComment on above:Performed By: #### MG, LIP, TROPI, CP, BNP, CDP #### [address] [place] [address] Structural Drafter: Iveth Rosario (Bld) [#/Vol]142 10*3/bPPstlil442-179 [facility] CenterComment on above:Performed By: #### MG, LIP, TROPI, CP, BNP, CDP #### [address] [place] [address] Structural Drafter: TEQUILA Rosario (Bld) [#/Vol]1.93 10*6/uLLow4.21-5.77[facility] Medical CenterComment on above:Performed By: #### MG, LIP, TROPI, CP, BNP, CDP #### [facility] [address] [place] [address] Structural Drafter: SHAWN Rosario (Bld) [#/Vol]8.0 10*3/uLNormal3.5-11.3[facility] HospitalComment on above:Performed By: #### MG, LIP, TROPI, CP, BNP, CDP #### [facility] [address] [place] [address] Structural Drafter: Skyler Armendariz [facility] 97-38-0098Odcduot [Mass/Vol]3.0 g/dLLow3.5 - 5.2 g/dLBon [facility], Edwin ShawAlbumin/Globulin [Mass ratio]0.8 {ratio}Low1.0 - 2.5Bon [facility] HealthALP [Catalytic activity/Vol]140 U/LHigh40 - 129 U/L Bon [facility], [facility] ShawALT [Catalytic activity/Vol]10 U/L10 - 50 U/LBon [facility] Hospital, Edwin ShawAnion gap [Moles/Vol]17 mmol/LHigh9 - 16 mmol/LBon [facility] ShawAST [Catalytic activity/Vol]26 U/L10 - 50 U/LBon [facility] Bilirubin [Mass/Vol]0.7 mg/dL0.00 - 1.20 mg/dLBon [facility], Edwin ShawCalcium [Mass/Vol]8.6 mg/dL8.6 - 10.4 mg/dLBon [facility] Hospital, Edwin ShawChloride [Moles/Vol] 97 mmol/LLow98 - 107 mmol/LBon [facility] Hospital, Edwin ShawCO2 [Moles/Vol]23 mmol/L20 - 31 mmol/LBon [facility], Edwin ShawCreatinine [Mass/Vol]1.5 mg/dLHigh0.70 - 1.20 mg/dLBon [facility], [facility] ShawEst, Glom Filt Kdze21Yzq- PINFBon [facility] Hospital, Edwin ShawComment on above: These results are not intended for use in patients <18 years of age. eGFR results are calculated without a race factor using the 2020 CKD-EPI equation. Careful clinical correlation is recommended, particularly when comparing to results calculated using previous equations. The CKD-EPI equation is less accurate in patients with extremes of muscle mass, extra-renal metabolism of creatine, excessive creatine ingestion, or following therapy that affects renal tubular secretion. Glucose [Mass/Vol]90 mg/dL74 - 99 mg/dLBon [facility]Po[facility] HealthPotassium [Moles/Vol]3.0 mmol/LLow3.7 - 5.3 mmol/LBon Sec[facility] HealthProtein [Mass/Vol]6.9 g/dL6.6 - 8.7 g/dLBon [facility] HealthSodium [Moles/Vol]137 mmol/L136 - 145 mmol/LBon [facility] HealthUrea nitrogen [Mass/Vol]16 mg/dL8 - 23 mg/dLBon [facility] HealthUrea nitrogen/Creatinine [Mass ratio]11 mg/mg9 - 20Bon [facility] HealthCT CERVICAL SPINE WO CONTRASTon [id number] CERVICAL SPINE WO CONTRASTEXAMINATION: CT OF THE CERVICAL SPINE WITHOUT CONTRAST 02/07/2024 12:36 pm TECHNIQUE: CT of the cervical spine was performed without the administration of intravenous contrast. Multiplanar reformatted images are provided for review. Automated exposure control, iterative reconstruction, and/or weight based adjustment of the mA/kV was utilized to reduce the radiation dose to as low as reasonably achievable. COMPARISON: None. HISTORY: ORDERING SYSTEM PROVIDED HISTORY: fall [facility] pain TECHNOLOGIST PROVIDED HISTORY: fall [facility] pain Decision Support Exception - unselect if not a suspected or confirmed emergency medical condition->Emergency Medical Condition (MA) FINDINGS: BONES/ALIGNMENT: The spine is straightened and normally aligned. Multiple ligamentous calcifications are noted posteriorly. C1 and C2 have a normal relationship. There is no acute fracture. DEGENERATIVE CHANGES: There is mild multilevel degenerative disc disease and facet arthropathy in the spine. No central canal narrowing is identified. SOFT TISSUES: There is no prevertebral soft tissue swelling. IMPRESSION: 1. No acute cervical spine fracture. 2. Straightening of the spine which could be related to patient positioning or muscle spasm. 3. Mild multilevel degenerative disc disease and facet arthropathy in the spine. Interpreted by: Pavan Pollard MD Signed by: Pavan Pollard MD 02/07/24 Final resultNormalMercy Kramer HospitalCT CHEST ABDOMEN PELVIS W CONTRASTon [id number] CHEST ABDOMEN PELVIS W CONTRASTEXAMINATION: CT OF THE CHEST, ABDOMEN, AND PELVIS WITH CONTRAST 02/07/2024 1:35 pm TECHNIQUE: CT of the chest, abdomen and pelvis was performed with the administration of intravenous contrast. Multiplanar reformatted images are provided for review. Automated exposure control, iterative reconstruction, and/or weight based adjustment of the mA/kV was utilized to reduce the radiation dose to as low as reasonably achievable. COMPARISON: None HISTORY: ORDERING SYSTEM PROVIDED HISTORY: sob cp and abd pain TECHNOLOGIST PROVIDED HISTORY: sob cp and abd pain Decision Support Exception - unselect if not a suspected or confirmed emergency medical condition->Emergency Medical Condition (MA) FINDINGS: Chest: Mediastinum: The cardiac size is normal. Aortic valve repair. Status post CABG. There is no significant mediastinal, hilar or axillary lymphadenopathy. The thyroid gland shows no significant abnormalities. The esophagus shows no significant abnormalities. Lungs/pleura: Small left pleural effusion minor bibasilar pleuroparenchymal densities representing subsegmental atelectasis. 5 mm solid nodule anterior basal right lower lobe along the major fissure series 3, image 58. No routine follow-up imaging is recommended. Soft Tissues/Bones: Comminuted wedge compression fracture of T12 vertebral body. About 40% decrease height. Increased sclerosis of the vertebral body. Please correlate for possible pathologic fracture. Abdomen/Pelvis: Organs: There is 1.5 cm nonobstructing calculus in the left renal pelvis along with 4 other subcentimeter intrarenal calculi in the mid and lower pole. Right kidney is unremarkable. Liver, spleen, pancreas, adrenal glands and gallbladder show no acute process. GI/Bowel: There is limited evaluation due to absence of oral contrast. Stomach collapsed otherwise unremarkable. No bowel obstruction. No acute infective process in the GI tract. Pelvis: Prostate calcifications. Urinary bladder unremarkable. Peritoneum/Retroperitoneum: Aorta bi-iliac stent graft. No ascites. No significant lymphadenopathy. Bones/Soft Tissues: Bilateral fat containing inguinal herniae. IMPRESSION: 1. Comminuted wedge compression fracture of T12 vertebral body. About 40% decrease height. Increased sclerosis of the vertebral body. Please correlate for possible pathologic fracture. 2. Small left pleural effusion. 3. 5 mm solid nodule anterior basal right lower lobe along the major fissure. No follow-up recommended. 4. 1.5 cm nonobstructing calculus in the left renal pelvis along with 4 other subcentimeter intrarenal calculi in the mid and lower pole. 5. Bilateral fat containing inguinal herniae. 6. Status post CABG. Aorta bi-iliac stent graft. Aortic valve replacement. Interpreted by: Javid Louis MD Signed by: Javid Louis MD 02/07/24 Final resultNormalMercy [facility] [place] Cervical spine WO contraston . No acute cervical spine fracture. 2. Straightening of the spine which could be related to patient positioning or muscle spasm. 3. Mild multilevel degenerative disc disease and facet arthropathy in the spine. [facility] CONSOLIDATEDEXAMINATION: CT OF THE CERVICAL SPINE WITHOUT CONTRAST 02/07/2024 12:36 pm TECHNIQUE: CT of the cervical spine was performed without the administration of intravenous contrast. Multiplanar reformatted images are provided for review. Automated exposure control, iterative reconstruction, and/or weight based adjustment of the mA/kV was utilized to reduce the radiation dose to as low as reasonably achievable. COMPARISON: None. HISTORY: ORDERING SYSTEM PROVIDED HISTORY: fall [facility] pain TECHNOLOGIST PROVIDED HISTORY: fall [facility] pain Decision Support Exception - unselect if not a suspected or confirmed emergency medical condition->Emergency Medical Condition (MA) FINDINGS: BONES/ALIGNMENT: The spine is straightened and normally aligned. Multiple ligamentous calcifications are noted posteriorly. C1 and C2 have a normal relationship. There is no acute fracture. DEGENERATIVE CHANGES: There is mild multilevel degenerative disc disease and facet arthropathy in the spine. No central canal narrowing is identified. SOFT TISSUES: There is no prevertebral soft tissue swelling. [facility] Pavan Quevedo MD - 02/07/2024 EXAMINATION: CT OF THE CERVICAL SPINE WITHOUT CONTRAST 02/07/2024 12:36 pm TECHNIQUE: CT of the cervical spine was performed without the administration of intravenous contrast. Multiplanar reformatted images are provided for review. Automated exposure control, iterative reconstruction, and/or weight based adjustment of the mA/kV was utilized to reduce the radiation dose to as low as reasonably achievable. COMPARISON: None. HISTORY: ORDERING SYSTEM PROVIDED HISTORY: fall [facility] pain TECHNOLOGIST PROVIDED HISTORY: fall [facility] pain Decision Support Exception - unselect if not a suspected or confirmed emergency medical condition->Emergency Medical Condition (MA) FINDINGS: BONES/ALIGNMENT: The spine is straightened and normally aligned. Multiple ligamentous calcifications are noted posteriorly. C1 and C2 have a normal relationship. There is no acute fracture. DEGENERATIVE CHANGES: There is mild multilevel degenerative disc disease and facet arthropathy in the spine. No central canal narrowing is identified. SOFT TISSUES: There is no prevertebral soft tissue swelling. IMPRESSION: 1. No acute cervical spine fracture. 2. Straightening of the spine which could be related to patient positioning or muscle spasm. 3. Mild multilevel degenerative disc disease and facet arthropathy in the spine. [facility] CortriumRadiology Study observation (narrative)[facility] CortriumKS Cervical spine WO contrastOrdered By: Pavan Pollard on [id number] [facility] Work Phone: CT Chest and Abdomen and Pelvis W contrast Nelsy . Comminuted wedge compression fracture of T12 vertebral body. About 40% decrease height. Increased sclerosis of the vertebral body. Please correlate for possible pathologic fracture. 2. Small left pleural effusion. 3. 5 mm solid nodule anterior basal right lower lobe along the major fissure. No follow-up recommended. 4. 1.5 cm nonobstructing calculus in the left renal pelvis along with 4 other subcentimeter intrarenal calculi in the mid and lower pole. 5. Bilateral fat containing inguinal herniae. 6. Status post CABG. Aorta bi-iliac stent graft. Aortic valve replacement. [facility] RIS CONSOLIDATEDEXAMINATION: CT OF THE CHEST, ABDOMEN, AND PELVIS WITH CONTRAST 02/07/2024 1:35 pm TECHNIQUE: CT of the chest, abdomen and pelvis was performed with the administration of intravenous contrast. Multiplanar reformatted images are provided for review. Automated exposure control, iterative reconstruction, and/or weight based adjustment of the mA/kV was utilized to reduce the radiation dose to as low as reasonably achievable. COMPARISON: None HISTORY: ORDERING SYSTEM PROVIDED HISTORY: sob cp and abd pain TECHNOLOGIST PROVIDED HISTORY: sob cp and abd pain Decision Support Exception - unselect if not a suspected or confirmed emergency medical condition->Emergency Medical Condition (MA) FINDINGS: Chest: Mediastinum: The cardiac size is normal. Aortic valve repair. Status post CABG. There is no significant mediastinal, hilar or axillary lymphadenopathy. The thyroid gland shows no significant abnormalities. The esophagus shows no significant abnormalities. Lungs/pleura: Small left pleural effusion minor bibasilar pleuroparenchymal densities representing subsegmental atelectasis. 5 mm solid nodule anterior basal right lower lobe along the major fissure series 3, image 58. No routine follow-up imaging is recommended. Soft Tissues/Bones: Comminuted wedge compression fracture of T12 vertebral body. About 40% decrease height. Increased sclerosis of the vertebral body. Please correlate for possible pathologic fracture. Abdomen/Pelvis: Organs: There is 1.5 cm nonobstructing calculus in the left renal pelvis along with 4 other subcentimeter intrarenal calculi in the mid and lower pole. Right kidney is unremarkable. Liver, spleen, pancreas, adrenal glands and gallbladder show no acute process. GI/Bowel: There is limited evaluation due to absence of oral contrast. Stomach collapsed otherwise unremarkable. No bowel obstruction. No acute infective process in the GI tract. Pelvis: Prostate calcifications. Urinary bladder unremarkable. Peritoneum/Retroperitoneum: Aorta bi-iliac stent graft. No ascites. No significant lymphadenopathy. Bones/Soft Tissues: Bilateral fat containing inguinal herniae. [facility] Javid Lane MD - 02/07/2024 EXAMINATION: CT OF THE CHEST, ABDOMEN, AND PELVIS WITH CONTRAST 02/07/2024 1:35 pm TECHNIQUE: CT of the chest, abdomen and pelvis was performed with the administration of intravenous contrast. Multiplanar reformatted images are provided for review. Automated exposure control, iterative reconstruction, and/or weight based adjustment of the mA/kV was utilized to reduce the radiation dose to as low as reasonably achievable. COMPARISON: None HISTORY: ORDERING SYSTEM PROVIDED HISTORY: sob cp and abd pain TECHNOLOGIST PROVIDED HISTORY: sob cp and abd pain Decision Support Exception - unselect if not a suspected or confirmed emergency medical condition->Emergency Medical Condition (MA) FINDINGS: Chest: Mediastinum: The cardiac size is normal. Aortic valve repair. Status post CABG. There is no significant mediastinal, hilar or axillary lymphadenopathy. The thyroid gland shows no significant abnormalities. The esophagus shows no significant abnormalities. Lungs/pleura: Small left pleural effusion minor bibasilar pleuroparenchymal densities representing subsegmental atelectasis. 5 mm solid nodule anterior basal right lower lobe along the major fissure series 3, image 58. No routine follow-up imaging is recommended. Soft Tissues/Bones: Comminuted wedge compression fracture of T12 vertebral body. About 40% decrease height. Increased sclerosis of the vertebral body. Please correlate for possible pathologic fracture. Abdomen/Pelvis: Organs: There is 1.5 cm nonobstructing calculus in the left renal pelvis along with 4 other subcentimeter intrarenal calculi in the mid and lower pole. Right kidney is unremarkable. Liver, spleen, pancreas, adrenal glands and gallbladder show no acute process. GI/Bowel: There is limited evaluation due to absence of oral contrast. Stomach collapsed otherwise unremarkable. No bowel obstruction. No acute infective process in the GI tract. Pelvis: Prostate calcifications. Urinary bladder unremarkable. Peritoneum/Retroperitoneum: Aorta bi-iliac stent graft. No ascites. No significant lymphadenopathy. Bones/Soft Tissues: Bilateral fat containing inguinal herniae. IMPRESSION: 1. Comminuted wedge compression fracture of T12 vertebral body. About 40% decrease height. Increased sclerosis of the vertebral body. Please correlate for possible pathologic fracture. 2. Small left pleural effusion. 3. 5 mm solid nodule anterior basal right lower lobe along the major fissure. No follow-up recommended. 4. 1.5 cm nonobstructing calculus in the left renal pelvis along with 4 other subcentimeter intrarenal calculi in the mid and lower pole. 5. Bilateral fat containing inguinal herniae. 6. Status post CABG. Aorta bi-iliac stent graft. Aortic valve replacement. [facility] HEAD WO CONTRASTon [id number] HEAD WO CONTRASTEXAMINATION: CT OF THE HEAD WITHOUT CONTRAST 02/07/2024 1:36 pm TECHNIQUE: CT of the head was performed without the administration of intravenous contrast. Automated exposure control, iterative reconstruction, and/or weight based adjustment of the mA/kV was utilized to reduce the radiation dose to as low as reasonably achievable. COMPARISON: None. HISTORY: ORDERING SYSTEM PROVIDED HISTORY: LOC TECHNOLOGIST PROVIDED HISTORY: Loc Decision Support Exception - unselect if not a suspected or confirmed emergency medical condition->Emergency Medical Condition (MA) FINDINGS: BRAIN/VENTRICLES: There is prominence of the ventricles and cortical sulci consistent with cortical volume loss. No midline shift. Basal cisterns are normally outlined. There is no evidence for acute infarct. No acute intra or extra-axial hemorrhage. ORBITS: The visualized portion of the orbits demonstrate no acute abnormality. SINUSES: The visualized paranasal sinuses and mastoid air cells demonstrate no acute abnormality. SOFT TISSUES/SKULL: No acute abnormality of the visualized skull or soft tissues. IMPRESSION: No acute intracranial abnormality. Cerebral atrophy. Interpreted by: Javid Louis MD Signed by: Javid Louis MD 02/07/24 Final resultNormalMercy Hartford HospitalCT Head WO contraston [id number] acute intracranial abnormality. Cerebral atrophy. [facility] CONSOLIDATEDEXAMINATION: CT OF THE HEAD WITHOUT CONTRAST 02/07/2024 1:36 pm TECHNIQUE: CT of the head was performed without the administration of intravenous contrast. Automated exposure control, iterative reconstruction, and/or weight based adjustment of the mA/kV was utilized to reduce the radiation dose to as low as reasonably achievable. COMPARISON: None. HISTORY: ORDERING SYSTEM PROVIDED HISTORY: LOC TECHNOLOGIST PROVIDED HISTORY: Loc Decision Support Exception - unselect if not a suspected or confirmed emergency medical condition->Emergency Medical Condition (MA) FINDINGS: BRAIN/VENTRICLES: There is prominence of the ventricles and cortical sulci consistent with cortical volume loss. No midline shift. Basal cisterns are normally outlined. There is no evidence for acute infarct. No acute intra or extra-axial hemorrhage. ORBITS: The visualized portion of the orbits demonstrate no acute abnormality. SINUSES: The visualized paranasal sinuses and mastoid air cells demonstrate no acute abnormality. SOFT TISSUES/SKULL: No acute abnormality of the visualized skull or soft tissues. [facility] Javid Perez MD - 02/07/2024 EXAMINATION: CT OF THE HEAD WITHOUT CONTRAST 02/07/2024 1:36 pm TECHNIQUE: CT of the head was performed without the administration of intravenous contrast. Automated exposure control, iterative reconstruction, and/or weight based adjustment of the mA/kV was utilized to reduce the radiation dose to as low as reasonably achievable. COMPARISON: None. HISTORY: ORDERING SYSTEM PROVIDED HISTORY: LOC TECHNOLOGIST PROVIDED HISTORY: Loc Decision Support Exception - unselect if not a suspected or confirmed emergency medical condition->Emergency Medical Condition (MA) FINDINGS: BRAIN/VENTRICLES: There is prominence of the ventricles and cortical sulci consistent with cortical volume loss. No midline shift. Basal cisterns are normally outlined. There is no evidence for acute infarct. No acute intra or extra-axial hemorrhage. ORBITS: The visualized portion of the orbits demonstrate no acute abnormality. SINUSES: The visualized paranasal sinuses and mastoid air cells demonstrate no acute abnormality. SOFT TISSUES/SKULL: No acute abnormality of the visualized skull or soft tissues. IMPRESSION: No acute intracranial abnormality. Cerebral atrophy. [facility] (narrative)[facility] Head WO contrastOrdered By: Javid Louis on [id number] [employer] Work Phone: CT LUMBAR SPINE WO CONTRASTon [id number] LUMBAR SPINE WO CONTRASTEXAMINATION: CT OF THE THORACIC SPINE WITHOUT CONTRAST; CT OF THE LUMBAR SPINE WITHOUT CONTRAST 02/07/2024 1:36 pm: TECHNIQUE: CT of the thoracic spine and the lumbar spine was performed without the administration of intravenous contrast. Multiplanar reformatted images are provided for review. Adjustment of mA and/or kV according to patient size was utilized. Automated exposure control, iterative reconstruction, and/or weight based adjustment of the mA/kV was utilized to reduce the radiation dose to as low as reasonably achievable. COMPARISON: None. HISTORY: Acute back pain status post fall. FINDINGS: THORACIC SPINE: Acute comminuted fracture of the T12 vertebral body with up to 40% vertebral body height loss but no retropulsion into the spinal canal. Fracture fragments abut the posterior margin of the abdominal aorta. No spondylolisthesis. Remainder of the thoracic spine is unremarkable. LUMBAR SPINE: No acute fracture. Vertebral body heights are maintained. No spondylolisthesis. Scattered degenerative changes, greatest at L5-S1. SOFT TISSUES: Small left pleural effusion. Severe atherosclerotic disease. Status post EVAR. 1 cm left renal stone. IMPRESSION: 1. Acute comminuted fracture of the T12 vertebral body with up to 40% vertebral body height loss. 2. No acute abnormality of the lumbar spine. Interpreted by: Brittany Up MD Signed by: Brittany Up MD 02/07/24 Final resultNormalMercy [facility] [place] Lumbar spine WO contraston 02-07-2024 Radiology Study observation (narrative)[facility] THORACIC SPINE WO CONTRASTon [id number] THORACIC SPINE WO CONTRASTEXAMINATION: CT OF THE THORACIC SPINE WITHOUT CONTRAST; CT OF THE LUMBAR SPINE WITHOUT CONTRAST 02/07/2024 1:36 pm: TECHNIQUE: CT of the thoracic spine and the lumbar spine was performed without the administration of intravenous contrast. Multiplanar reformatted images are provided for review. Adjustment of mA and/or kV according to patient size was utilized. Automated exposure control, iterative reconstruction, and/or weight based adjustment of the mA/kV was utilized to reduce the radiation dose to as low as reasonably achievable. COMPARISON: None. HISTORY: Acute back pain status post fall. FINDINGS: THORACIC SPINE: Acute comminuted fracture of the T12 vertebral body with up to 40% vertebral body height loss but no retropulsion into the spinal canal. Fracture fragments abut the posterior margin of the abdominal aorta. No spondylolisthesis. Remainder of the thoracic spine is unremarkable. LUMBAR SPINE: No acute fracture. Vertebral body heights are maintained. No spondylolisthesis. Scattered degenerative changes, greatest at L5-S1. SOFT TISSUES: Small left pleural effusion. Severe atherosclerotic disease. Status post EVAR. 1 cm left renal stone. IMPRESSION: 1. Acute comminuted fracture of the T12 vertebral body with up to 40% vertebral body height loss. 2. No acute abnormality of the lumbar spine. Interpreted by: Brittany Up MD Signed by: Brittany Up MD 02/07/24 Final resultNormalMerSaint Mary's Hospital Thoracic spine WO contraston [id number] Study observation (narrative)[facility] Metabolic Profon [id number] [Mass/Vol]3.0 g/dLLow3.5-5.2[facility] HospitalComment on above:Performed By: #### MG, LIP, TROPI, CP, BNP, CDP #### [facility] [address] [place] [address] [place] [address] Structural Drafter: Skyler Armendariz, MDAlbumin/Glob Ratio0.8Low1.0-2.5[facility] CenterComment on above:Performed By: #### MG, LIP, TROPI, CP, BNP, CDP #### [facility] [address] [place] [address] [place] [address] Structural Drafter: Meli Rosario Meiv008 U/YEvtc10-564XafxaMetrohealth Parma Medical CenterComment on above:Performed By: #### MG, LIP, TROPI, CP, BNP, CDP #### [address] [place] [address] Structural Drafter: Skyler Armendariz MDALT [Catalytic activity/Vol]10 U/RWsygfu64-53ZslglMetrohealth Parma Medical CenterComment on above:Performed By: #### MG, LIP, TROPI, CP, BNP, CDP #### [address] [place] [address] Structural Drafter: Maria D Rosario gap [Moles/Vol]17 mmol/LHigh9-16[facility] Medical CenterComment on above:Performed By: #### MG, LIP, TROPI, CP, BNP, CDP #### [address] [place] [address] Structural Drafter: Skyler Armendariz MDAST [Catalytic activity/Vol]26 U/BCcvfcy08-25OerxgMetrohealth Parma Medical CenterComment on above:Performed By: #### MG, LIP, TROPI, CP, BNP, CDP #### [address] [place], [place] [id number] Structural Drafter: Skyler Armendariz MDBilirubin [Mass/Vol]0.7 mg/dLNormal0.00-1.20[facility] Medical CenterComment on above:Performed By: #### MG, LIP, TROPI, CP, BNP, CDP #### [address] [place], [place] [id number] Structural Drafter: Skyler Armendariz MDBUN/CRE [id number] [facility] Comment on above:Performed By: #### MG, LIP, TROPI, CP, BNP, CDP #### [address] [place], [facility] Structural Drafter: KOFI Rosarioalcium [Mass/Vol]8.6 mg/dLNormal8.6-10.4[facility] Medical CenterComment on above:Performed By: #### MG, LIP, TROPI, CP, BNP, CDP #### [address] [place], [facility] Structural Drafter: KOFI Rosariohloride [Moles/Vol]97 mmol/XPnz80-286SorwtMetrohealth Parma Medical CenterComment on above:Performed By: #### MG, LIP, TROPI, CP, BNP, CDP #### [address] [place], [facility] Structural Drafter: KOFI RosarioO2 [Moles/Vol]23 mmol/XDxcdwl90-56HqypaMetrohealth Parma Medical CenterComment on above:Performed By: #### MG, LIP, TROPI, CP, BNP, CDP #### [address] [place], [facility] Structural Drafter: KOFI Rosarioreatinine [Mass/Vol]1.5 mg/dLHigh0.70-1.20[facility] Medical CenterComment on above:Performed By: #### MG, LIP, TROPI, CP, BNP, CDP #### [address] [place], [facility]83 Structural Drafter: Skyler Armendariz MDGFR/1.73 sq M.predicted among non-blacks MDRD (S/P/Bld) [Vol rate/Area]50 mL/min/{1.73_m2}Low>60Metrohealth Parma Medical CenterComment on above:Result Comment: These results are not intended for use in patients <18 years of age. eGFR results are calculated without a race factor using the 2020 CKD-EPI equation. Careful clinical correlation is recommended, particularly when comparing to results calculated using previous equations. The CKD-EPI equation is less accurate in patients with extremes of muscle mass, extra-renal metabolism of creatine, excessive creatine ingestion, or following therapy that affects renal tubular secretion.Performed By: #### MG, LIP, TROPI, CP, BNP, CDP #### [address] [place], [place] [address] Structural Drafter: Skyler Armendariz MDGlucose [Mass/Vol]90 mg/aAGmlwwx85-86Rlphr Tiffin HospitalComment on above:Performed By: #### MG, LIP, TROPI, CP, BNP, CDP #### [address] [place], [facility] Structural Drafter: [place]A Rosariootassium [Moles/Vol]3.0 mmol/LLow3.7-5.3MUpper Valley Medical Center HospitalComment on above:Performed By: #### MG, LIP, TROPI, CP, BNP, CDP #### [address] [place], [place] [address] Structural Drafter: Skyler Armendariz MDProtein [Mass/Vol]6.9 g/dLNormal6.6-8.7[facility] HospitalComment on above:Performed By: #### MG, LIP, TROPI, CP, BNP, CDP #### [address] [place], [place] [address]83 Structural Drafter: Skyler Armendariz MDSodium [Moles/Vol]137 mmol/XAdzlxu993-622Emkjs Tiffin HospitalComment on above:Performed By: #### MG, LIP, TROPI, CP, BNP, CDP #### [address] [place] [address] Structural Drafter: Skyler Armendariz MDUrea nitrogen [Mass/Vol]16 mg/dLNormal8-23Met[facility] Parma Medical CenterComment on above:Performed By: #### MG, LIP, TROPI, CP, BNP, CDP #### [address] [place] [address] Structural Drafter: Skyler Armendariz MDEKG 12 LeadOrdered By: Dagoberto Mata on 02-07-2024 Atrial Inwz315YEETut [employer] Work Phone: [phone] Lzeq21jawuphsRjz [employer] Work Phone: P-R Mspkwazx968 msBon [employer] Work Phone: [phone]-T Clfcwery849 msBioMedFlex Work Phone: QRS Pixmcvdx32 msBon [employer] Work Phone: [phone] Calculation (Bazett)469 msBon [employer] Work Phone: R Qqmn58jtsskbsXsp [employer] Work Phone: T [place]-10degrCalibrus Work Phone: Ventricular Tzgl869VXMCxc [employer] Work Phone: [phone] [employer] Work Phone: [phone] 12 Leadon 25-96-0337Ssqsz tachycardia with 1st degree A-V block Possible Anterior infarct , age undetermined Abnormal ECG When compared with ECG of 18-MAY-2018 12:57, Vent. rate has increased BY 44 BPM Borderline criteria for Anterior infarct are now Present ST no longer elevated in Inferior leads QT has lengthened Confirmed by DAGOBERTO MATA ([id number]) on 02/07/2024 11:52:[address] [facility] Dagoberto Mata MD - 02/07/2024 Sinus tachycardia with 1st degree A-V block Possible Anterior infarct , age undetermined Abnormal ECG When compared with ECG of 18-MAY-2018 12:57, Vent. rate has increased BY 44 BPM Borderline criteria for Anterior infarct are now Present ST no longer elevated in Inferior leads QT has lengthened Confirmed by DAGOBERTO MATA ([id number]) on 02/07/2024 11:52:39 PM Bon CortriumHaptoglobinon 16-50-2380Rbndzexrunb [Mass/Vol]161 mg/dL 30 - 200 mg/dLBon [facility] ShawHaptoglobin161 mg/xPIfufpd57-143TnwlwMetrohealth Parma Medical CenterComment on above:Performed By: #### BNP #### [address] [place] [address] Structural Drafter: Skyler Armendariz MDHemoglobin and Hematocriton 09-16-8206Oskawzfger (Bld) [Volume fraction]26.3 %Low40.7 - 50.3 %Bon [facility], [facility] ShawHemoglobin (Bld) [Mass/Vol]9.0 g/dLLow13.0 - 17.0 g/dLBon [facility] Interpretation and review of laboratory resultsAbnormalBon [facility] Bon [facility] ShawHgb/Hcton 16-23-9238Kxuckhxdpu (Bld) [Volume fraction] 26.3 %Low40.7-50.3Mer[facility] Hartford HospitalComment on above:Performed By: #### BMPX #### [address] [place] [address] Structural Drafter: Skyler Armendariz MDHemoglobin (Bld) [Mass/Vol]9.0 g/dLLow13.0-17.0 [facility] Medical CenterComment on above:Performed By: #### BMPX #### [address] [place], [place] [address]183 Structural Drafter: Tosha Rosario Binding Cap.on 02-07-2024% Fe Hrmveblkeb93 % Wzpqly41-81NbpcxMetrohealth Parma Medical CenterComment on above:Performed By: #### BNP #### [facility] [address] [place] [address] Dr[address] [place], [place] 0748983 Structural Drafter: Tosha Rosario [Mass/Vol]106 ug/nMMximoy03-639QhdihMetrohealth Parma Medical CenterComment on above:Performed By: #### BNP #### [address] [place] [address] Structural Drafter: Skyler Sturtz, MDTotal Fe Binding Oko965 ug/aRZbe832-700LjhxcMetrohealth Parma Medical CenterComment on above:Performed By: #### BNP #### [address] [place] [address] Structural Drafter: Earnest Rosariobound Fe Bind Cap89 ug/lXKqb633-706AmstsMetrohealth Parma Medical CenterComment on above:Performed By: #### BNP #### [address] [place] [address] Structural Drafter: Tosha Rosario and TIBCon 76-35-0078Yfdztoxpttvcmm and review of laboratory resultsAbnormalBon SecSumma Health [facility]ron CampusIron [Mass/Vol]106 ug/dL61 - 157 ug/dLBon SecMarion Hospitaln binding capacity [Mass/Vol]195 ug/kUMve141 - 450 ug/dLBon [facility] Medical Centern saturation [Mass fraction]54 %20 - 55 %Bon SecSumma Health Akron CampusUIBC89 ug/gVPhr692 - 347 ug/dLBon SecSumma Health Akron CampusLactic Acidon 30-37-1005Znhjvlupxgieaw and review of laboratory resultsAbnormalBon SecPo[facility] Hospital HealthLactate (BldV) [Moles/Vol]2.7 mmol/LHigh 0.5 - 2.2 mmol/LBon Secours Chillic[facility] Va Medical Centery HealthBon [facility] HealthLactate [Moles/Vol]2.7 mmol/LHigh0.5-2.2MWhite HospitalComment on above:Performed By: #### BMPX #### [address] [place] [address] Structural Drafter: Skyler Armendariz MDInterpretation and review of laboratory results AbnormalBon SecPointe Coupee General Hospital HealthLactate (BldV) [Moles/Vol]4.2 mmol/LHigh0.5 - 2.2 mmol/LBon Secours Chillic[facility] Va Medical Centery HealthBon [facility] HealthLactate [Moles/Vol]4.2 mmol/LHigh0.5-2.2MWhite HospitalComment on above:Performed By: #### LACTIC #### [address] [place] [address] Structural Drafter: Skyler Armendariz MDLipaseon 29-24-6561Xtuews [Catalytic activity/Vol] 36 U/L13 - 60 U/LBon [facility] ShawLipase [Catalytic activity/Vol]36 U/L Wnbevr29-49KnqzjMetrohealth Parma Medical CenterComment on above:Performed By: #### MG, LIP, TROPI, CP, BNP, CDP #### [address] [place], [place] [address]83 Structural Drafter: Katiuska Rosariognesiumon 61-61-9513Dcpmtxfyflrmlq and review of laboratory resultsAbnormVCU Medical CenterMagnesium [Mass/Vol]2.5 mg/dL High1.6 - 2.4 mg/dLBon [facility] HospitalMagnesium [Mass/Vol]2.5 mg/dLHigh1.6-2.4Met[facility] Parma Medical CenterComment on above:Performed By: #### BMPX #### [address] [place] [address] Structural Drafter: Skyler Armendariz MDMagnesium [Mass/Vol]0.7 mg/dLCritically low1.6 - 2.4 mg/dLBon [facility] ShawMagnesium [Mass/Vol]0.7 mg/dLCritically low 1.6-2.4Met[facility] Parma Medical CenterComment on above:Performed By: #### MG, LIP, TROPI, CP, BNP, CDP #### [address] [place] [address] Structural Drafter: Skyler Armendariz MDMicroscopic Urinalysison 76-56-1768Izfxvtjw LM Ql (Urine sed)TRACEAbnormalNoneBon [facility] ShawEpithelial cells LM.HPF (Urine sed) [#/Area]0 TO 2Bon [facility] ShawInterpretation and review of laboratory resultsAbnormalSentara Williamsburg Regional Medical CenterRBC LM.HPF (Urine sed) [#/Area]NoneBon [facility], [facility] ShawWBC LM.HPF (Urine sed) [#/Area]10 TO 20Bon [facility] ShawBon [facility] ShawNo Panel Informationon 88-37-7643Hek [facility]1. Acute comminuted fracture of the T12 vertebral body with up to 40% vertebral body height loss. 2. No acute abnormality of the lumbar spine. [facility] CONSOLIDATEDEXAMINATION: CT OF THE THORACIC SPINE WITHOUT CONTRAST; CT OF THE LUMBAR SPINE WITHOUT CONTRAST 02/07/2024 1:36 pm: TECHNIQUE: CT of the thoracic spine and the lumbar spine was performed without the administration of intravenous contrast. Multiplanar reformatted images are provided for review. Adjustment of mA and/or kV according to patient size was utilized. Automated exposure control, iterative reconstruction, and/or weight based adjustment of the mA/kV was utilized to reduce the radiation dose to as low as reasonably achievable. COMPARISON: None. HISTORY: Acute back pain status post fall. FINDINGS: THORACIC SPINE: Acute comminuted fracture of the T12 vertebral body with up to 40% vertebral body height loss but no retropulsion into the spinal canal. Fracture fragments abut the posterior margin of the abdominal aorta. No spondylolisthesis. Remainder of the thoracic spine is unremarkable. LUMBAR SPINE: No acute fracture. Vertebral body heights are maintained. No spondylolisthesis. Scattered degenerative changes, greatest at L5-S1. SOFT TISSUES: Small left pleural effusion. Severe atherosclerotic disease. Status post EVAR. 1 cm left renal stone. [facility] Brittany Carlson MD - 02/07/2024 EXAMINATION: CT OF THE THORACIC SPINE WITHOUT CONTRAST; CT OF THE LUMBAR SPINE WITHOUT CONTRAST 02/07/2024 1:36 pm: TECHNIQUE: CT of the thoracic spine and the lumbar spine was performed without the administration of intravenous contrast. Multiplanar reformatted images are provided for review. Adjustment of mA and/or kV according to patient size was utilized. Automated exposure control, iterative reconstruction, and/or weight based adjustment of the mA/kV was utilized to reduce the radiation dose to as low as reasonably achievable. COMPARISON: None. HISTORY: Acute back pain status post fall. FINDINGS: THORACIC SPINE: Acute comminuted fracture of the T12 vertebral body with up to 40% vertebral body height loss but no retropulsion into the spinal canal. Fracture fragments abut the posterior margin of the abdominal aorta. No spondylolisthesis. Remainder of the thoracic spine is unremarkable. LUMBAR SPINE: No acute fracture. Vertebral body heights are maintained. No spondylolisthesis. Scattered degenerative changes, greatest at L5-S1. SOFT TISSUES: Small left pleural effusion. Severe atherosclerotic disease. Status post EVAR. 1 cm left renal stone. IMPRESSION: 1. Acute comminuted fracture of the T12 vertebral body with up to 40% vertebral body height loss. 2. No acute abnormality of the lumbar spine. [facility] Regional Medical CenterInterpretation and review of laboratory resultsAbnormal [facility] Children's HospitalNo Panel InformationOrdered By: Brittany Up on 46-88-6639EuvVCU Medical Center Work Phone: Occult Blood, Fecalon 12-40-8653Ujrmul Blood 1Negative NormalSelect Medical Specialty Hospital - AkronComment on above:Performed By: #### MG, LIP, TROPI, CP, BNP, CDP #### [facility] [address] [place] [address] [place] [place], [place] 544[address]83 Structural Drafter: Edgar Rosario [address] [place] [address] Comment on above:Performed By: #### MG, LIP, TROPI, CP, BNP, CDP #### [address] [place] [address] Structural Drafter: Edgar Rosario [address] [place] [address] Comment on above:Performed By: #### MG, LIP, TROPI, CP, BNP, CDP #### [facility] [address] [place] [address] [place] [address] Structural Drafter: Bereket Rosario 02-50-6180UWA Coag (PPP) [Relative time]1.1 {INR}[facility]lyria Medical CenterComment on above:Result Comment: Therapeutic Range: Moderate Anticoagulant Intensity: INR = 2.0-3.0 High Anticoagulant Intensity: INR = 2.5-3.5Performed By: #### BNP #### [address] [place], [place] [address]83 Structural Drafter: KRYSTAL Rosario Coag (PPP) [Time]13.6 lMqizwv48.7-14.1MWhite HospitalComment on above:Performed By: #### BNP #### [address] [place] [address] Structural Drafter: ALEXANDRIA Rosariorotime-INRon 77-20-1169DMX Coag (PPP) [Relative time]1.1 {INR}[facility] Medical CenterComment on above: Therapeutic Range: Moderate Anticoagulant Intensity: INR = 2.0-3.0 High Anticoagulant Intensity: INR = 2.5-3.5 PT Coag (PPP) [Time]13.6 sBon [facility] ShawBon [facility], Edwin ShawRetic Counton 42-86-0992Qadvjaqg Retic0.047 M/uLNormal0.030-0.080[facility] Comment on above:Performed By: #### BNP #### [address] [place], [place] 3[address]283 Structural Drafter: Skyler Armendariz MDIRF21.7 %High2.7-18.3MWhite HospitalComment on above:Performed By: #### BNP #### [address] [place] [address] Structural Drafter: FLOR Rosarioetic Count1.7 %Normal0.5-1.9[facility] Comment on above:Performed By: #### BNP #### [address] [place] [address] Structural Drafter: FLOR Rosarioetic Iwtcfsvjdk40.9 wmPswb38.2-35.7Met[facility] Parma Medical CenterComment on above:Performed By: #### BNP #### [address] [place] [address] Structural Drafter: FLOR Rosarioeticulocyteson 09-59-6467Jwzkphqu reticulocytes/Total reticulocytes (Bld)21.7 %High2.7 - 18.3 %[facility] Medical CenterInterpretation and review of laboratory resultsAbnormalSentara Williamsburg Regional Medical CenterRetic Qbhskvjwdv02.9 lxJqha48.2 - 35.7 pgSentara Williamsburg Regional Medical Center Reticulocytes (Bld) [#/Vol]0.047 10*3/uLSentara Williamsburg Regional Medical Center Reticulocytes/100 RBC (Bld)1.7 %0.5 - 1.9 %[facility] Children's HospitalTroponinon 97-10-1605Wudylblnwjunyi and review of laboratory results AbnormalLake Taylor Transitional Care Hospitaloponin I.cardiac High sensitivity method [Mass/Vol]37 ng/LHigh0 - 22 ng/LBon [facility] ShawComment on above:High Sensitivity Troponin values cannot be compared with other Troponin methodologies.In[facility] Children's Hospitaln, High Sens37 ng/LHigh0-22Met[facility] Parma Medical CenterComment on above:Result Comment: High Sensitivity Troponin values cannot be compared with other Troponin methodologies.Performed By: #### BNP #### [address] [place] [address] Structural Drafter: Brittny Rosario I.cardiac High sensitivity method [Mass/Vol]37 ng/LHigh0 - 22 ng/LBon [facility], [facility] ShawComment on above:High Sensitivity Troponin values cannot be compared with other Troponin methodologies.Troponin, High Sens37 ng/LHigh0-22[facility] Medical CenterCompontiac general hospital on above:Result Comment: High Sensitivity Troponin values cannot be compared with other Troponin methodologies.Performed By: #### MG, LIP, TROPI, CP, BNP, CDP #### [address] [place] [address] Structural Drafter: Skyler Armendariz MDType + Screenon 37-10-0882Doha + ScreenSample Expiration 02/10/2024,2359 Arm Band Number [id number] ABO/Rh(D) A POSITIVE Antibody Screen NEGATIVE Unit Number [id number] Blood Component Type Leukocyte Reduced Red Cell Unit Division 00 Status of Unit TRANSFUSED Transfusion Status OK TO TRANSFUSE Crossmatch Result COMPATIBLE Unit Number [id number] Blood Component Type Leukocyte Reduced Red Cell Unit Division 00 Status of Unit TRANSFUSED Transfusion Status OK TO TRANSFUSE Crossmatch Result COMPATIBLEUniversity Hospitals Elyria Medical CenterComment on above: Performed By: #### BMPX #### [facility] [address] [place], [place] [address] Structural Drafter: ROSEY Rosario w/Reflex Cultureon 58-62-5376Xyngzqveg, SemiQt,UrNegativeSelect Medical Specialty Hospital - Cincinnati NorthComment on above:Performed By: #### BMPX #### [facility] [address] [place] [address] Dr. [place], [place] 4870783 Structural Drafter: Shayna Rosario, UrineNegativeSelect Medical Specialty Hospital - [facility] North Comment on above:Performed By: #### BMPX #### [facility] [address] [place] [address] [place] [address] Structural Drafter: Vida Rosario (ClearWadsworth-Rittman Hospital Comment on above:Performed By: #### BMPX #### [facility] [address] [place] [address] [place] [address] Structural Drafter: Josh Rosario (YellowKindred Healthcare Comment on above:Performed By: #### BMPX #### [facility] [address] [place] [address] [place], [place] 4660[address] Structural Drafter: Va Rosarioose Ql (U)NegativeNoKettering Health DaytonComment on above:Performed By: #### BMPX #### [facility] [address] [place] [address] [place]. [place], [place] 7203183 Structural Drafter: Jesús Rosario Ql (U)TRACEAbnormalNEGMercy Hartford HospitalComment on above:Performed By: #### BMPX #### [facility] [address] [place] [address] [place] [address] Structural Drafter: Skyler Armendariz MDLeukocyte esterase Test strip Ql (U)SMALLAbnormal NEGMerEast Liverpool City Hospital HospitalComment on above:Performed By: #### BMPX #### [facility] [address] [place] [address] [place] [address] Structural Drafter: Skyler Armendariz MDNitrite,UrNegativeNormalNEGMetrohealth Parma Medical Center Comment on above:Performed By: #### BMPX #### [address] [place] [address] Structural Drafter: ALEXANDRIA Rosario,Ur6.7Jyxvbp9.0-9.0[facility] Medical CenterComment on above:Performed By: #### BMPX #### [address] [place] [address] Structural Drafter: ALEXANDRIA Rosariorotein Ql (U)NegativeNormalNEGMetrohealth Parma Medical CenterComment on above:Performed By: #### BMPX #### [address] [place] [address] Structural Drafter: NOAH Rosariopec. [place],Ur1.788Zmyrsu7.010-1.020[facility] Medical CenterComment on above:Performed By: #### BMPX #### [facility] [address] [place] [address] [place] [address] Structural Drafter: Skyler Armendariz MDUrobilinogen,UrNormalNormal0.0-1.0[facility] Medical CenterComment on above:Performed By: #### BMPX #### [facility] [address] [place] [address] [place] [address] Structural Drafter: Skyler Armendariz MDUrinalysis with Reflex to Cultureon 02-07-2024 Bilirubin Ql (U)NegativeNEGATIVEBon [facility] HealthClarity (U)ClearClearBon [facility] HealthColor (U)YellowYellowBon [facility] ShawGlucose Test strip (U) [Mass/Vol]NegativeNEGATIVE mg/dLBon [facility] ShawHemoglobin Auto test strip Ql (U)NegativeNEGATIVEBon [facility] HealthInterpretation and review of laboratory resultsAbnormalBon [facility] HealthKetones (U) [Mass/Vol]TRACEAbnormalNEGATIVE mg/dLBon [facility] ShawLeukocyte esterase Test strip Ql (U)SMALLAbnormalNEGATIVEBon [facility] HealthNitrite Ql (U) NegativeNEGATIVEBon [facility] HealthpH (U)6.5 [pH]5.0 - 9.0Bon [facility], [facility] ShawProtein (U) [Mass/Vol]NegativeNEGATIVE mg/dLBon [facility] Health Specific gravity (U) [Rel density]1.0101.010 - 1.020Bon [facility] Urobilinogen Qn (U)Normal0.0 - 1.0 EU/dLBon [facility] HospitalUrinalysis,Microon 77-53-9468YqdlvkspSVKGPLykghqtkUEYBHwjok Tiffin HospitalComment on above:Performed By: #### BMPX #### [facility] [address] [place] [address] Structural Drafter: Skyler Armendariz MDEpithelial cells LM Ql (Urine sed)0 TO 1Nxnnkt3-7 [facility] CenterComment on above:Performed By: #### BMPX #### [facility] [address] [place] [address] Structural Drafter: Tejas Rosario RBC'sNoneNormal0-2MWhite Hospital Comment on above:Performed By: #### BMPX #### [facility] [address] [place] [address] Structural Drafter: Skyler Sturtz, MDUrine WBC's10 TO 61Ofxuin5-5PedzxMetrohealth Parma Medical Center Comment on above:Performed By: #### BMPX #### [facility] [address] [place] [address] Structural Drafter: Skyler Armendariz, MDCBC AND AUTO DIFFon 69-37-4163OCSHTNTC BASOPHIL0.0 X10E9/LNormal0.0-0.2[facility] Norris Jr. Cancer HospitalComment on above:Performed By: #### CBCRachel, , CMP ####[facility] ([id number])[address] [place] [address] 08686FHKKBQNG NEUTROPHIL3.0 X10E9/LNormal1.5-6.6 ProMLanterman Developmental CenterComment on above:Performed By: #### MARVA, , CMP ####[facility] ([id number])[address] [place] [address] 13266Smaxbdznx/100 WBC (Bld)1.0 %NormalProMethodist Hospital AtascosaComment on above:Performed By: #### CBCRachel, , CMP ####[facility] ([id number])[address] [place] [address] 55381Lfefcsparrw (Bld) [#/Vol]0.1 10*3/uLNormal0.0-0.4[facility] Comment on above:Performed By: #### CBCRachel, , CMP ####[facility] ([id number])[address] [place] [address] 21647 Eosinophils/100 WBC (Bld)3.1 %NormalGuernsey Memorial HospitalComment on above: Performed By: #### CBCRachel, , CMP ####[facility] ([id number])[address] [place] [address] 63624Dudboczqbtc distribution width (RBC) [Ratio]21.2 %High11.5-15.0[facility] Comment on above:Performed By: #### MARVA , CMP ####[facility] ([id number])[address] [place] [address] 24044 Hematocrit (Bld) [Volume fraction]22.1 %Ywb21-22XrwOhsqyzGuernsey Memorial Hospital Comment on above:Performed By: #### MARVA , CMP ####[facility] ([id number])[address] [place] [address] 69949 Hemoglobin (Bld) [Mass/Vol]7.4 g/dLLow13.0-17.0[facility] HospitalComment on above:Performed By: #### MARVA , CMP ####[facility] ([id number])[address] [place] [address] 72812Rawiiyxthfp (Bld) [#/Vol]1.0 10*3/uLNormal1.0-3.5PSt. Vincent HospitalComment on above: Performed By: #### MARVA , CMP ####[facility] ([id number])[address] [place] [address] 33826Twawvlmtvkf/100 WBC (Bld)21.2 %NormalProMethodist Hospital AtascosaComment on above:Performed By: #### MARVA , CMP ####[facility] ([id number])[address] [place] [address] 78146DVO (RBC) [Entitic mass]34.3 nyShxf76-02 [facility] HospitalComment on above:Performed By: #### MARVA, , CMP ####[facility] ([id number])[address] [place] [address] 18977NMPL (RBC) [Mass/Vol]33.5 g/lPWuhkqq92-29JxgFhkqvvGuernsey Memorial HospitalComment on above:Performed By: #### MARVA, , CMP ####[facility] ([id number])[address] [place] [address] 97286PWJ (RBC) [Entitic vol]103 iSWcrd67-118PsnErmjzzGuernsey Memorial HospitalComment on above:Performed By: #### MARVA, , CMP ####[facility] ([id number])[address] [place] [address] 54779Lyvlsnlza (Bld) [#/Vol]0.4 10*3/uLNormal0-0.9[facility] Memorial HospitalCompontiac general hospital on above: Performed By: #### MARVA, , CMP ####[facility] [facility] ([id number])[address] [place] [address] 54096Ihyiyptcg/100 WBC (Bld)9.7 %NormalGuernsey Memorial HospitalCompontiac general hospital on above:Performed By: #### MARVA, , CMP ####[facility] ([id number])[address] [place] [address] 21405Kdhyprkmkeo/100 WBC (Bld)65.0 %Normal [facility] HospitalComp[facility] hospital on above:Performed By: #### MARVA, , CMP ####[facility] ([id number])[address] [place] [address] 25324Tnbltgcf mean volume (Bld) [Entitic vol]8.8 fLNormal7-12 [facility] HospitalCompontiac [facility] hospital on above:Performed By: #### MARVA, , CMP ####[facility] ([id number])[address] [place] [address] 84611Voxwzsdnr (Bld) [#/Vol]122 10*3/dZDin799-845YsgYqwovoMethodist Hospital AtascosaComment on above:Performed By: #### MARVA, , CMP ####[facility] ([id number])[address] [place] [address] 92311KXY COUNT2.16 X10E12/LLow4.10-5.70ProMethodist Hospital AtascosaComment on above:Performed By: #### MARVA, , CMP ####[facility] ([id number])[address] [place] [address] 40812POC (Bld) [#/Vol]4.6 10*3/uLNormal4.0-11.0ProMethodist Hospital AtascosaComment on above:Performed By: #### MARVA, , CMP ####[facility] ([id number])[address] [place] [address] 31524BIWEXQBXFTRKE METABOLIC PANELon 24-75-5798Pgfztub [Mass/Vol]2.3 g/dLLow3.2-5.3ProMedKindred HospitalComment on above:Performed By: #### MARVA, , CMP ####[facility] ([id number])[address] [place] [address] 16313EHI [Catalytic activity/Vol]120 U/JLnvren19-126TthMhxxnpMethodist Hospital AtascosaComment on above:Performed By: #### MARVA , CMP ####[facility] ([id number])[address] [place] [address] 41912NVQ [Catalytic activity/Vol]19 U/LNormal0-40ProMethodist Hospital AtascosaComment on above:Performed By: #### MARVA, , CMP ####[facility] ([id number])[address] [place] [address] 11812Boxxm gap [Moles/Vol]5 mmol/LNormal5-15ProMethodist Hospital AtascosaComment on above:Performed By: #### MARVA , CMP ####[facility] ([id number])[address] [place] [address], [place] [address]GTT [Catalytic activity/Vol]30 U/LNormal0-41[facility] Comment on above:Performed By: #### MARVA , CMP ####[facility] ([id number])[address] [place] [address], [place] [address] Bilirubin [Mass/Vol]0.4 mg/dLNormal0.3-1.2PSt. Vincent HospitalComment on above:Performed By: #### MARVA , CMP ####[facility] ([id number])[address] [place] [address], [place] [address]10[address]Xzmlccy [Mass/Vol]8.3 mg/dLLow8.5-10.5PSt. Vincent HospitalComment on above: Performed By: #### MARVA, , CMP ####[facility] ([id number])[address] [place] [address], [place] 16271Ofafktre [Moles/Vol]105 mmol/QBjjzuw66-943PbsNuuwleMethodist Hospital AtascosaComment on above: Performed By: #### MARVA, , CMP ####[facility] ([id number])[address] [place] [address], [place] 25[address]RT7 [Moles/Vol]28 mmol/ARuxjlg71-61AuyAqwpdqSt. Vincent HospitalComment on above:Performed By: #### MARVA, , CMP ####[facility] ([id number])[address] [place] [address], [place] 88891Twzjgfwwwb [Mass/Vol]1.10 mg/dLNormal 0.70-1.20ProMethodist Hospital AtascosaComment on above:Result Comment: METHOD TRACEABLE TO IDMS STANDARDPerformed By: #### MARVA , CMP ####[facility] ([id number])[address] [place] [address], [place] [address]WCO/1.73 sq M.predicted among non-blacks MDRD (S/P/Bld) [Vol rate/Area]70 mL/min/{1.73_m2}Normal>59ProMethodist Hospital AtascosaComment on above:Result Comment: Reported eGFR is based on theCKD-EPI 2020 equation that doesnot use a race coefficient.Performed By: #### MARVA , CMP ####[facility] ([id number])[address] [place] [address], [place] [address]Efqnpxq [Mass/Vol]99 mg/tJKxrnsn01-23EkeAbndyxMethodist Hospital AtascosaComment on above: Performed By: #### MARVA , CMP ####[facility] ([id number])[address] [place] [address] 51743Sjsabtlqe [Moles/Vol]5.1 mmol/LHigh3.5-5.0ProMethodist Hospital AtascosaComment on above: Performed By: #### MARVA , CMP ####[facility] ([id number])[address] [place] [address] 66074Jadmyou [Mass/Vol]5.8 g/dLLow6.0-8.0ProMethodist Hospital AtascosaComment on above:Performed By: #### MARVA , CMP ####[facility] ([id number])[address] [place] [address], [place] [address]Fjbbha [Moles/Vol]138 mmol/LNormal 134-146ProMethodist Hospital AtascosaComment on above:Performed By: #### MARVA , CMP ####[facility] ([id number])[address] [place] [address] 22341Vikd nitrogen [Mass/Vol]16 mg/dLNormal5-27ProMethodist Hospital AtascosaComment on above:Performed By: #### CBCA, 30277-2, CMP ####[facility] ([id number])[address] [place] [address] 85839DSRVTBCOSgl 85-96-1710Jeymapkeh [Mass/Vol]1.5 mg/dLLow 1.8-2.6Guernsey Memorial HospitalComment on above:Performed By: #### CBCA, 85678-4, CMP ####[facility] ([id number])[address] [place] [address], [place] [address]BVN AND AUTO DIFFon 11-88-7349YKHXNRQQ BASOPHIL0.1 X10E9/LNormal0.0-0.2Pro[facility] Cancer HospitalComment on above:Performed By: #### Alivia, CMP, CBCA ####[facility] ([id number])[address] [place] [address] 97354RBPVFVTA NEUTROPHIL3.9 X10E9/LNormal1.5-6.6 ProMbullock county hospitala [facility] Jr. Cancer HospitalComment on above:Performed By: #### 77783-8, CMP, CBCA ####[facility] ([id number])[address] [place] [address] 82503Pkjgazgnv/100 WBC (Bld)1.1 %NormalProMethodist Hospital AtascosaComment on above:Performed By: #### 01937-6, CMP, CBCA ####[facility] ([id number])[address] [place] [address] 75175Mszvojasoxt (Bld) [#/Vol]0.1 10*3/uLNormal0.0-0.4[facility] Comment on above:Performed By: #### 09159-4, CMP, CBCA ####[facility] ([id number])[address] [place] [address] 14584 Eosinophils/100 WBC (Bld)2.9 %NormalProMethodist Hospital AtascosaComment on above: Performed By: #### 81987-0, CMP, CBCA ####[facility] ([id number])[address] [place] [address] 59098Lceilbdiyff distribution width (RBC) [Ratio]21.1 %High11.5-15.0[facility] Comment on above:Performed By: #### 04032-9, CMP, CBCA ####[facility] ([id number])[address] [place] [address] 52657 Hematocrit (Bld) [Volume fraction]23.1 %Rwx30-20LcpGnpnpwGuernsey Memorial Hospital Comment on above:Performed By: #### 69529-1, CMP, CBCA ####[facility] ([id number])[address] [place] [address] 74017 Hemoglobin (Bld) [Mass/Vol]7.8 g/dLLow13.0-17.0Gu[facility]sey Memorial HospitalComment on above:Performed By: #### 74768-7, CMP, CBCA ####[facility] ([id number])[address] [place] [address] 52226Ilymnzrdbsv (Bld) [#/Vol]0.7 10*3/uLLow1.0-3.5PSt. Vincent HospitalComment on above: Performed By: #### 17341-5, CMP, CBCA ####[facility] ([id number])[address] [place] [address] 91581Pvihwlgzfxz/100 WBC (Bld)13.0 %NormalProMethodist Hospital AtascosaComment on above:Performed By: #### 11819-4, CMP, CBCA ####[facility] ([id number])[address] [place] [address] 17897ICO (RBC) [Entitic mass]34.3 yeYmer24-45 [facility] HospitalComment on above:Performed By: #### 20426-7, CMP, CBCA ####[facility] ([id number])[address] [place] [address] 23452DFLA (RBC) [Mass/Vol]33.7 g/zSSlrvam92-27MgeFuljvpMethodist Hospital AtascosaComment on above:Performed By: #### 98723-1, CMP, CBCA ####[facility] ([id number])[address] [place] [address] 94566GXO (RBC) [Entitic vol]102 zEUarv44-811ExtYodygxMethodist Hospital AtascosaComment on above:Performed By: #### 86035-2, CMP, CBCA ####[facility] ([id number])[address] [place] [address] 02284Bagkisjkt (Bld) [#/Vol]0.4 10*3/uLNormal0-0.9[facility] HospitalCompontiac general hospital on above: Performed By: #### 38362-0, CMP, CBCA ####[facility] ([id number])[address] [place] [address] 19442Fsurkccjw/100 WBC (Bld)7.4 %NormalGuernsey Memorial HospitalCompontiac general hospital on above:Performed By: #### 13135-7, CMP, CBCA ####[facility] ([id number])[address] [place] [address] 35792Mejfckzlela/100 WBC (Bld)75.6 %Normal [facility] HospitalCompontiac general hospital on above:Performed By: #### 34030-6, CMP, CBCA ####[facility] ([id number])[address] [place] [address] 85554Jxzzmjhn mean volume (Bld) [Entitic vol]9.4 fLNormal7-12 [facility] Memorial HospitalComment on above:Performed By: #### 31884-2, CMP, CBCA ####[facility] ([id number])[address] [place] [address] 16695Duqsvwpdl (Bld) [#/Vol]132 10*3/rXPnn102-963XfdIvyixgMethodist Hospital AtascosaComment on above:Performed By: #### 51445-8, CMP, CBCA ####[facility] ([id number])[address] [place] [address] 42276XSQ COUNT2.27 X10E12/LLow4.10-5.70ProMethodist Hospital AtascosaComment on above:Performed By: #### 70318-0, CMP, CBCA ####[facility] ([id number])[address] [place] [address] 80225LFM (Bld) [#/Vol]5.1 10*3/uLNormal4.0-11.0ProMethodist Hospital AtascosaComment on above:Performed By: #### 27446-3, CMP, CBCA ####[facility] ([id number])[address] [place] [address] 90636TTMIFNWYFLETF METABOLIC PANELon 94-48-0563Fjaovxe [Mass/Vol]2.5 g/dLLow3.2-5.3PSt. Vincent HospitalComment on above:Performed By: #### 04471-6, CMP, CBCA ####[facility] ([id number])[address] [place] [address] 02225BZT [Catalytic activity/Vol]113 U/GPozroq91-263JioYjnfpxMethodist Hospital AtascosaComment on above:Performed By: #### 86532-9, CMP, CBCA ####[facility] ([id number])[address] [place] [address] [place] [address]CGP [Catalytic activity/Vol]17 U/LNormal0-40ProMethodist Hospital AtascosaComment on above:Performed By: #### 40452-4, CMP, CBCA ####[facility] ([id number])[address] [place] [address], [place] [address]Nyglc gap [Moles/Vol]7 mmol/LNormal5-15ProMethodist Hospital AtascosaComment on above:Performed By: #### 73222-6, CMP, CBCA ####[facility] ([id number])[address] [place] [address], [place] 48[address]EQE [Catalytic activity/Vol]27 U/LNormal0-41ProMethod[facility] Hospital [facility]a Comment on above:Performed By: #### 93293-8, CMP, CBCA ####[facility] ([id number])[address] [place] [address], [place] [address] Bilirubin [Mass/Vol]0.6 mg/dLNormal0.3-1.2PSt. Vincent HospitalComment on above:Performed By: #### 55438-7, CMP, CBCA ####[facility] ([id number])[address] [place] [address], [place] 764[address]Zlpuisg [Mass/Vol]8.4 mg/dLLow8.5-10.5PSt. Vincent HospitalComment on above: Performed By: #### 71873-5, CMP, CBCA ####[facility] ([id number])[address] [place] [address], [place] [address]35[address]Gpmzkvby [Moles/Vol]102 mmol/CInmzyn32-342QdaKtkeeuMethodist Hospital AtascosaComment on above: Performed By: #### 52417-5, CMP, CBCA ####[facility] ([id number])[address] [place] [address], [place] [address]KG4 [Moles/Vol]27 mmol/OFywyzu98-40DayAdygivSt. Vincent HospitalComment on above:Performed By: #### 22431-7, CMP, CBCA ####[facility] ([id number])[address] [place], [place] [address], [place] [address]Cofgneshrx [Mass/Vol]1.19 mg/dLNormal 0.70-1.20ProMethodist Hospital AtascosaComment on above:Result Comment: METHOD TRACEABLE TO IDMS STANDARDPerformed By: #### 39359-5EBONY CBCA ####[facility] ([id number])[address] [place] [address], [place] [address]CZJ/1.73 sq M.predicted among non-blacks MDRD (S/P/Bld) [Vol rate/Area]64 mL/min/{1.73_m2}Normal>59ProMethodist Hospital AtascosaComment on above:Result Comment: Reported eGFR is based on theCKD-EPI 2020 equation that doesnot use a race coefficient.Performed By: #### 39869-7, CMP, CBCA ####[facility] ([id number])[address] [place] [address] 28963Rlguvvv [Mass/Vol]103 mg/qLClec73-10FjdTmgeneMethodist Hospital AtascosaComment on above:Performed By: #### 26828-8, CMP, CBCRachel ####[facility] ([id number])[address] [place] [address] 77679Iswrthhnl [Moles/Vol]4.3 mmol/LNormal 3.5-5.0ProMethodist Hospital AtascosaComment on above:Performed By: #### 28234-8, CMP, CBCA ####[facility] ([id number])[address] [place] [address] 66625Uggxpqh [Mass/Vol]6.2 g/dLNormal6.0-8.0ProMethodist Hospital AtascosaComment on above:Performed By: #### 14182-7, EBONY, CBCA ####[facility] ([id number])[address] [place] [address], [place] [address]Ujdpdt [Moles/Vol]136 mmol/RGqyihn837-181AvzXbdjoc [facility]remont HospitalComment on above:Performed By: #### 07231-6, EBONY, CBCA ####[facility] ([id number])[address] [place] [address] 63967Rivm nitrogen [Mass/Vol]19 mg/dLNormal-[facility] HospitalComment on above:Performed By: #### 33216-1, EBONY, CBCA ####[facility] ([id number])[address] [place] [address] 31967Vkqrulu Glucometer (BldC) [Mass/Vol]on 78-39-9175Cqjuihk [Mass/Vol]106 mg/nSWmyp63-47NxtFghxmtGuernsey Memorial HospitalGlucose [Mass/Vol]102 mg/vLLatr76-67GflAwmkcfGuernsey Memorial HospitalGlucose [Mass/Vol]114 mg/vNNsgv47-92DubNtuaarMethodist Hospital AtascosaMAGNESIUMon 11-53-2589Rwgoobnoy [Mass/Vol]1.9 mg/dLNormal1.8-2.6ProMethodist Hospital AtascosaComment on above: Performed By: #### 61433-0, EBONY, CBCA ####[facility] ([id number])[address] [place] [address] 57766EY CHEST 1 VWon 07-74-5497XS CHEST 1 VWNormalProMethodist Hospital AtascosaCB AND AUTO DIFFon 75-69-9719MNLVBZJR BASOPHIL0.1 X10E9/LNormal0.0-0.2PSt. [facility] Hospital Comment on above:Performed By: #### MARVA BECK, 63509-6 ####[facility] ([id number])[address] [place] [address] 91824SLAESWOZ NEUTROPHIL4.2 X10E9/LNormal1.5-6.6Gu[facility] Memorial HospitalComment on above: Performed By: #### EBONY CBCRachel, 79485-7 ####[facility] ([id number])[address] [place] [address] 06838Casdotvks/100 WBC (Bld)0.9 %NormalGuernsey Memorial HospitalComment on above:Performed By: #### EBONY, CBCA, ####[facility] ([id number])[address] [place] [address] 79033Qzktfbgpkaj (Bld) [#/Vol]0.2 10*3/uLNormal 0.0-0.4ProMethodist Hospital AtascosaComment on above:Performed By: #### CMP, CBCA, ####[facility] ([id number])[address] [place] [address] 72627Eoncvnvijiz/100 WBC (Bld)2.7 %NormalProMethodist Hospital AtascosaComment on above:Performed By: #### EBONY, CBCA, ####[facility] ([id number])[address] [place] [address] 42890Vlrmxrwzexb distribution width (RBC) [Ratio]21.4 %High11.5-15.0Gu[facility] Memorial HospitalComment on above:Performed By: #### EBONY, CBCA, ####[facility] ([id number])[address] [place] [address] 16500Xokezcgesn (Bld) [Volume fraction]21.9 %Nid52-82HevHmddaeMethodist Hospital AtascosaComment on above:Performed By: #### CMP, CBCA, ####[facility] ([id number])[address] [place] [address] 40880Aacrmvqfea (Bld) [Mass/Vol]7.2 g/dLLow13.0-17.0[facility] HospitalComment on above:Performed By: #### CMP, CBCA, ####[facility] ([id number])[address] [place] [address] [place] [address]Jogxvaebycx (Bld) [#/Vol]1.3 10*3/uLNormal1.0-3.5Pro[facility] Cancer HospitalComment on above:Performed By: #### EBONY, CBCA, ####[facility] ([id number])[address] [place] [address] 95804Niatfhuwtsp/100 WBC (Bld)20.2 %NormalProMethodist Hospital AtascosaComment on above:Performed By: #### CMP, CBCA, ####[facility] ([id number])[address] [place] [address] 36190PMX (RBC) [Entitic mass]34.3 krRvvl07-11ResJdsknbMethodist Hospital AtascosaComment on above:Performed By: #### EBONY CBCA, ####[facility] ([id number])[address] [place] [address] 36252OFBP (RBC) [Mass/Vol]32.8 g/uAOjqocs30-77UtaMpqjdfMethodist Hospital AtascosaComment on above: Performed By: #### EBONY, CBCA, ####[facility] ([id number])[address] [place] [address] 66703MNA (RBC) [Entitic vol]105 xXWzov14-692UbtAlpxezMethodist Hospital AtascosaComment on above: Performed By: #### CMP, CBCA, ####[facility] ([id number])[address] [place] [address] 39713Cqvmiofrr (Bld) [#/Vol]0.5 10*3/uLNormal0-0.9[facility] HospitalComment on above: Performed By: #### CMP, CBCA, ####[facility] ([id number])[address] [place] [address] 26547Detbkjpvq/100 WBC (Bld)8.1 %NormalGuernsey Memorial HospitalComment on above:Performed By: #### CMP, CBCA, ####[facility] ([id number])[address] [place] [address] 98644Maqqdqwuwpe/100 WBC (Bld)68.1 %Normal [facility] HospitalComment on above:Performed By: #### CMP, CBCA, ####[facility] ([id number])[address] [place] [address] 77734Uwnyojtj mean volume (Bld) [Entitic vol]8.8 fLNormal7-12 [facility] HospitalComment on above:Performed By: #### EBONY, CBCA, ####[facility] ([id number])[address] [place] [address] 80123Yumdkukvp (Bld) [#/Vol]126 10*3/eOZza315-399NfyMbeihpGuernsey Memorial HospitalComment on above:Performed By: #### EBONY, CBCA, ####[facility] ([id number])[address] [place] [address] 27473KPT COUNT2.09 X10E12/LLow4.10-5.70[facility] HospitalComment on above:Performed By: #### CMP, CBCA, ####[facility] ([id number])[address] [place] [address] 52908WWG (Bld) [#/Vol]6.2 10*3/uLNormal4.0-11.0[facility] Memorial HospitalComment on above:Performed By: #### CMP, CBCA, ####[facility] ([id number])[address] [place] [address] 46506MPOKSKFDZXZEG METABOLIC PANELon 25-76-3628Jsyfats [Mass/Vol]2.2 g/dLLow3.2-5.3PSt. Vincent HospitalComment on above:Performed By: #### MARVA BECK, ####[facility] ([id number])[address] [place] [address], [place] [address]AJA [Catalytic activity/Vol]102 U/IYxltqh00-177GuwLinofaMethodist Hospital AtascosaComment on above:Performed By: #### MARVA BECK, ####[facility] ([id number])[address] [place] [address], [place] [address]NTH [Catalytic activity/Vol]15 U/LNormal0-40ProMethodist Hospital AtascosaComment on above:Performed By: #### MARVA BECK, ####[facility] ([id number])[address] [place] [address], [place] 58[address]Lhbuj gap [Moles/Vol]8 mmol/LNormal5-15ProMethodist Hospital AtascosaComment on above:Performed By: #### MARVA BECK, ####[facility] ([id number])[address] [place] [address], [place] 79[address]HWV [Catalytic activity/Vol]26 U/LNormal0-41[facility] Comment on above:Performed By: #### MARVA BECK, ####[facility] ([id number])[address] [place] [address], [place] [address] Bilirubin [Mass/Vol]0.4 mg/dLNormal0.3-1.2PSt. Vincent HospitalComment on above:Performed By: #### MARVA BECK, ####[facility] ([id number])[address] [place] [address], [place] 24[address]Jyrmiqi [Mass/Vol]8.1 mg/dLLow8.5-10.5PSt. Vincent HospitalComment on above: Performed By: #### MARVA BECK, 48294-2 ####[facility] ([id number])[address] [place] [address], [place] [address]Twhcrhfi [Moles/Vol]103 mmol/KZuqxhg09-223YswDramovMethodist Hospital AtascosaComment on above: Performed By: #### MARVA BECK, ####[facility] ([id number])[address] [place] [address] 38602EQ4 [Moles/Vol]24 mmol/QJbxxmr36-55NcrOuodcoSt. Vincent HospitalComment on above:Performed By: #### MARVA BECK, ####[facility] ([id number])[address] [place] [address] 89065Evmamextfb [Mass/Vol]1.31 mg/dLHigh0.70-1.20 [facility] HospitalComment on above:Result Comment: METHOD TRACEABLE TO IDMS STANDARDPerformed By: #### MARVA BECK, 10176-0 ####[facility] ([id number])[address] [place] [address] 72230DJT/1.73 sq M.predicted among non-blacks MDRD (S/P/Bld) [Vol rate/Area]57 mL/min/{1.73_m2} Low>59ProMethodist Hospital AtascosaComment on above:Result Comment: Reported eGFR is based on theCKD-EPI 2020 equation that doesnot use a race coefficient. Performed By: #### MARVA BECK, ####[facility] ([id number])[address] [place] [address] 58046Rhzmczz [Mass/Vol]107 mg/wAHzcp29-84MjfGkehrrMethodist Hospital AtascosaComment on above:Performed By: #### MARVA BECK, 76367-2 ####[facility] ([id number])[address] [place] [address], [place] [address]Rfhtpngtx [Moles/Vol]4.0 mmol/LNormal 3.5-5.0ProMethodist Hospital AtascosaComment on above:Performed By: #### MARVA BECK, ####[facility] ([id number])[address] [place] [address] 85970Ihdojzh [Mass/Vol]5.4 g/dLLow6.0-8.0ProMethodist Hospital AtascosaComment on above:Performed By: #### MARVA BECK, ####[facility] ([id number])[address] [place] [address] 44140Sqhsny [Moles/Vol]135 mmol/QZbhnvm143-326ZgeYxcvxl [facility] HospitalComment on above:Performed By: #### MARVA BECK, ####[facility] ([id number])[address] [place] [address] 32157Amic nitrogen [Mass/Vol]20 mg/dLNormal-27ProMethodist Hospital AtascosaComment on above:Performed By: #### MARVA BECK, ####[facility] ([id number])[address] [place] [address] 93196Tuahxfg Glucometer (BldC) [Mass/Vol]on 10-29-1336Qthaghy [Mass/Vol]124 mg/qSKhmy67-55MwqUyetdqGuernsey Memorial HospitalGlucose [Mass/Vol]165 mg/iBAycg99-99SdaCoxdawMethodist Hospital AtascosaGlucose [Mass/Vol]135 mg/pFPlaz47-97NdsQdwwsxMethodist Hospital AtascosaMAGNESIUMon 05-48-6436Iyzaohast [Mass/Vol]1.8 mg/dLNormal1.8-2.6ProMethodist Hospital AtascosaComment on above: Performed By: #### MARVA BECK, ####[facility] ([id number])[address] [place] [address], [place] [address]DUV AND AUTO DIFF on 34-13-9846PMOCNJNC BASOPHIL0.1 X10E9/LNormal0.0-0.2PThe [facility] Centerica [facility] Comment on above:Performed By: #### EBONY, , CBCA ####[facility] ([id number])[address] [place] [address] 75361QWPSVPGG NEUTROPHIL3.7 X10E9/LNormal1.5-6.6ProMethodist Hospital AtascosaComment on above: Performed By: #### EBONY, , CBCA ####[facility] ([id number])[address] [place] [address] 62692Zzmbogtcq/100 WBC (Bld)1.7 %NormalProMethodist Hospital AtascosaComment on above:Performed By: #### EBONY, , CBCA ####[facility] ([id number])[address] [place] [address] 11912Nxufuduneeb (Bld) [#/Vol]0.2 10*3/uLNormal 0.0-0.4Gu[facility]sey Memorial HospitalComment on above:Performed By: #### EBONY, , CBCA ####[facility] ([id number])[address] [place] [address] 21452Wvlxbitqzzs/100 WBC (Bld)3.9 %NormalProMethodist Hospital AtascosaComment on above:Performed By: #### EBONY, , CBCA ####[facility] ([id number])[address] [place] [address] 39170Twxwbakzrej distribution width (RBC) [Ratio]21.4 %High11.5-15.0ProMethodist Hospital AtascosaComment on above:Performed By: #### EBONY, , CBCA ####[facility] ([id number])[address] [place] [address] 80018Llizmfwjxl (Bld) [Volume fraction]23.4 %Lfe47-81OcdBfkjqoGuernsey Memorial HospitalComment on above:Performed By: #### CMP, , CBCA ####[facility] ([id number])[address] [place] [address] 46578Txlqhemdjy (Bld) [Mass/Vol]8.0 g/dLLow13.0-17.0[facility] Memorial HospitalComment on above:Performed By: #### CMP, , CBCA ####[facility] ([id number])[address] [place] [address] 99641Writkgigbgo (Bld) [#/Vol]1.4 10*3/uLNormal1.0-3.5[facility] Cancer HospitalComment on above:Performed By: #### EBONY, , CBCA ####[facility] ([id number])[address] [place] [address] 72032Ghdltgmvkei/100 WBC (Bld)24.1 %NormalProMethodist Hospital AtascosaComment on above:Performed By: #### CMP, , CBCA ####[facility] ([id number])[address] [place] [address] 60788QMC (RBC) [Entitic mass]34.5 zfGunp45-49OnvUhupkdGuernsey Memorial HospitalComment on above:Performed By: #### CMP, , CBCA ####[facility] ([id number])[address] [place] [address] 69695VBTU (RBC) [Mass/Vol]34.3 g/bHEmzgmj02-97NcuOjwnelMethodist Hospital AtascosaComment on above: Performed By: #### CMP, , CBCA ####[facility] ([id number])[address] [place], [place] [address]ZYK (RBC) [Entitic vol]101 bGEbwl00-785CetPfnorzMethodist Hospital AtascosaComment on above: Performed By: #### EBONY, , CBCA ####[facility] ([id number])[address] [place] [address] 39968Gapowvice (Bld) [#/Vol]0.4 10*3/uLNormal0-0.9Guernsey Memorial HospitalComment on above: Performed By: #### EBONY, , CBCA ####[facility] ([id number])[address] [place] [address] 67492Vxqjpdxjb/100 WBC (Bld)7.3 %NormalProMethodist Hospital AtascosaComment on above:Performed By: #### EBONY, , CBCA ####[facility] ([id number])[address] [place] [address] 65799Rdxnqilpduw/100 WBC (Bld)63.0 %Normal Guernsey Memorial HospitalComment on above:Performed By: #### EBONY, , CBCA ####[facility] ([id number])[address] [place] [address] 01782Mzudlfej mean volume (Bld) [Entitic vol]9.1 fLNormal7-12 [facility]sey Memorial HospitalComment on above:Performed By: #### EBONY, , CBCA ####[facility] ([id number])[address] [place] [address] 58840Roejjqavn (Bld) [#/Vol]118 10*3/eQYhn435-128SqhEfjbueMethodist Hospital AtascosaComment on above:Performed By: #### EBONY, , CBCA ####[facility] ([id number])[address] [place] [address] 62162JLC COUNT2.33 X10E12/LLow4.10-5.70ProMethodist Hospital AtascosaComment on above:Performed By: #### EBONY, , CBCA ####[facility] ([id number])[address] [place] [address], [place] [address]QPE (Bld) [#/Vol]5.9 10*3/uLNormal4.0-11.0ProMethodist Hospital AtascosaComment on above:Performed By: #### EBONY, , CBCA ####[facility] ([id number])[address] [place] [address] [place] [address]JIAFXJUHUYEGW METABOLIC PANELon 05-13-1990Wsxuorl [Mass/Vol]2.6 g/dLLow3.2-5.3Pro[facility] Cancer HospitalComment on above:Performed By: #### EBONY, , CBCA ####[facility] ([id number])[address] [place] [address], [place] [address]KAW [Catalytic activity/Vol]103 U/EEdeuyp63-649FlfZmnhvlMethodist Hospital AtascosaComment on above:Performed By: #### EBONY, , CBCA ####[facility] ([id number])[address] [place] [address], [place] [address]MEO [Catalytic activity/Vol]15 U/LNormal0-40ProMethodist Hospital AtascosaComment on above:Performed By: #### EBONY, , CBCA ####[facility] ([id number])[address] [place] [address], [place] [address]Wisxl gap [Moles/Vol]8 mmol/LNormal5-15ProMethodist Hospital AtascosaComment on above:Performed By: #### EBONY, , CBCA ####[facility] ([id number])[address] [place] [address], [place] [address]UOP [Catalytic activity/Vol]25 U/LNormal0-41[facility] Comment on above:Performed By: #### EBONY, , CBCA ####[facility] ([id number])[address] [place] [address], [place] [address] Bilirubin [Mass/Vol]0.8 mg/dLNormal0.3-1.2PSt. Vincent HospitalComment on above:Performed By: #### EBONY, , CBCA ####[facility] ([id number])[address] [place] [address], [place] [address]Nfnmnba [Mass/Vol]8.7 mg/dLNormal8.5-10.5PSt. Vincent HospitalComment on above: Performed By: #### EBONY, , CBCA ####[facility] ([id number])[address] [place] [address], [place] [address]Jghycveg [Moles/Vol]100 mmol/EMjcrkm63-644PsrMavmrmMethodist Hospital AtascosaComment on above: Performed By: #### EBONY, , CBCA ####[facility] ([id number])[address] [place] [address], [place] [address]JV3 [Moles/Vol]28 mmol/SCvptwg96-16BwyHqcnilSt. Vincent HospitalComment on above:Performed By: #### EBONY, , CBCA ####[facility] ([id number])[address] [place] [address], [place] [address]Juxiojrvty [Mass/Vol]1.54 mg/dLHigh0.70-1.20 ProMLanterman Developmental CenterComment on above:Result Comment: METHOD TRACEABLE TO IDMS STANDARDPerformed By: #### EBONY, , CBCA ####[facility] ([id number])[address] [place] [address], [place] [address]PRZ/1.73 sq M.predicted among non-blacks MDRD (S/P/Bld) [Vol rate/Area]47 mL/min/{1.73_m2} Low>59ProMethodist Hospital AtascosaComment on above:Result Comment: Reported eGFR is based on theCKD-EPI 2020 equation that doesnot use a race coefficient. Performed By: #### EBONY, , CBCA ####[facility] ([id number])[address] [place] [address], [place] [address]Hrjjznj [Mass/Vol]97 mg/rBDmtzdp22-49XghBhdujnMethodist Hospital AtascosaComment on above: Performed By: #### EBONY, , CBCA ####[facility] ([id number])[address] [place] [address], [place] [address]Ioukyzxzr [Moles/Vol]4.1 mmol/LNormal3.5-5.0ProMethodist Hospital AtascosaComment on above: Performed By: #### EBONY, , CBCA ####[facility] ([id number])[address] [place] [address] [place] [address]Iyeynmj [Mass/Vol]6.6 g/dLNormal6.0-8.0ProMethodist Hospital AtascosaComment on above: Performed By: #### EBONY, , CBCA ####[facility] ([id number])[address] [place] [address] [place] [address]Hzyram [Moles/Vol]136 mmol/LVuqubd609-624NsrXtjwar Fremont HospitalComment on above: Performed By: #### EBONY, , CBCA ####[facility] ([id number])[address] [place] [address] [place] [address]Ahtq nitrogen [Mass/Vol]23 mg/dLNormal5-27ProMethodist Hospital AtascosaComment on above:Performed By: #### EBONY, , CBCA ####[facility] ([id number])[address] [place] [address], [place] [address]Lrqptom Glucometer (BldC) [Mass/Vol]on 39-70-4305Zppztyu [Mass/Vol]149 mg/eWOdhg84-31NfxMdvdapGuernsey Memorial HospitalGlucose [Mass/Vol]120 mg/sKWhrt78-01CbzNddkraMethodist Hospital AtascosaGlucose [Mass/Vol]145 mg/nAQbop45-87NlwAjgzezMethodist Hospital AtascosaMAGNESIUMon 10-28-6267Ockqouazj [Mass/Vol]2.1 mg/dLNormal1.8-2.6Guernsey Memorial HospitalComment on above: Performed By: #### 89374-7 ####[facility] ([id number])[address] [place] [address], [place] [address]Gajcxaobn [Mass/Vol]1.8 mg/dLNormal 1.8-2.6ProMethodist Hospital AtascosaComment on above:Performed By: #### CMP, 45426- 9, CBCA ####[facility] ([id number])[address] [place] [address], [place] [address]CVYOO METABOLIC PANLon 30-59-8125Zieuc gap [Moles/Vol]9 mmol/LNormal5-15ProMethodist Hospital AtascosaComment on above:Performed By: #### BMP ####[facility] ([id number])[address] [place] [address], [place] [address]Yhonzfj [Mass/Vol]8.6 mg/dLNormal8.5-10.5ProMedKindred HospitalComment on above:Performed By: #### BMP ####[facility] ([id number])[address] [place] [address], [place] [address]Bzophsnr [Moles/Vol]95 mmol/RJkf31-315GhtIssoirMethodist Hospital AtascosaComment on above: Performed By: #### BMP ####[facility] ([id number])[address] [place] [address], [place] [address]VI1 [Moles/Vol]29 mmol/IGxtnei51-29JxwNrmknh [facility] Cancer HospitalComment on above:Performed By: #### BMP ####[facility] ([id number])[address] [place] [address], [place] [address] Creatinine [Mass/Vol]2.00 mg/dLHigh0.70-1.20ProMethodist Hospital AtascosaComment on above:Result Comment: METHOD TRACEABLE TO IDMS STANDARDPerformed By: #### BMP ####[facility] ([id number])[address] [place] [address] 54409MTZ/1.73 sq M.predicted among non-blacks MDRD (S/P/Bld) [Vol rate/Area]34 mL/min/{1.73_m2}Low>59ProMethodist Hospital AtascosaComment on above: Result Comment: Reported eGFR is based on theCKD-EPI 2020 equation that doesnot use a race coefficient.Performed By: #### BMP ####[facility] ([id number])[address] [place] [address], [place] [address]Ybidthn [Mass/Vol]117 mg/dDEgbf48-01OtfFuyxfkMethodist Hospital AtascosaComment on above:Performed By: #### BMP ####[facility] ([id number])[address] [place] [address] 13048Akgysnnat [Moles/Vol]4.0 mmol/LNormal3.5-5.0 [facility] Cancer HospitalComment on above:Performed By: #### BMP ####[facility] ([id number])[address] [place] [address], [place] [address]Wxzchy [Moles/Vol]133 mmol/NSgt040-658WqsUpiwbpMethodist Hospital AtascosaComment on above:Performed By: #### BMP ####[facility] ([id number])[address] [place] [address] 56516Yygs nitrogen [Mass/Vol]26 mg/dLNormal 5-27ProMethodist Hospital AtascosaComment on above:Performed By: #### BMP ####[facility] ([id number])[address] [place] [address] 79970Mujyo gap [Moles/Vol]11 mmol/LNormal5-15ProMethodist Hospital AtascosaComment on above:Performed By: #### 2131-9, FEPR, 2283-09, 2275- ####[facility] ([id number])[address] [place] [address], [address] [place] [address] 26797#### MARVA, BMP, 61015-5 ####[facility] ([id number])[address] [place] [address] 38517Qfqlhea [Mass/Vol]8.7 mg/dLNormal 8.5-10.5PThe NeuroMedical Centerica [facility] Jr. Cancer HospitalComment on above:Performed By: #### 2131-9, FEPR, 2283-09, 2275-05 ####[facility] ([id number])[address] [facility], [address] [place] [address]#### MARVA, BMP, ####[facility] ([id number])[address] [place] [address] 99711Zpohzakz [Moles/Vol]91 mmol/CWrd33-277DpcEoeyroMethodist Hospital AtascosaComment on above: Performed By: #### 2131-9, FEPR, 2283-09, 2275-05 ####[facility] ([id number])[address] [facility], [address] [place] [address]#### CBCA, BMP, ####[facility] ([id number])[address] [place] [address] 77799OP8 [Moles/Vol]28 mmol/DVybmob79-50ShvEhxtgbSt. Vincent HospitalComment on above:Performed By: #### 2131-9, FEPR, 2283-09, 2275-05 ####[facility] ([id number])[address] [address]#### MARVA BMP, 57212-5 ####[facility] ([id number])[address] [place] [address] 84816Kkgibwxgas [Mass/Vol]2.02 mg/dL High0.70-1.20ProMethodist Hospital AtascosaComment on above:Result Comment: METHOD TRACEABLE TO IDMS STANDARDPerformed By: #### 2131-9, FEPR, 8, 2275-05 ####[facility] ([id number])[address] [address]#### ANGLE [place]UR[place], ####[facility] ([id number])[address] [place] [address] 83951SPV/1.73 sq M.predicted among non-blacks MDRD (S/P/Bld) [Vol rate/Area]34 mL/min/{1.73_m2}Low>59ProMethodist Hospital AtascosaComment on above:Result Comment: Reported eGFR is based on theCKD-EPI 2020 equation that doesnot use a race coefficient.Performed By: #### 2131-, FEPR, 8, 2275-05 ####[facility] ([id number])[address] [address]#### MARVA, BMP, ####[facility] ([id number])[address] [place] [address] 37798Jnanucm [Mass/Vol]110 mg/tUJyzn86-96XdnMfwxobMethodist Hospital AtascosaComment on above:Performed By: #### 2131-, FEPR, 8, 2275-05 ####[facility] ([id number])[address] [address]#### CBCA, BMP, 42732-1 ####[facility] ([id number])[address] [place] [address] 38564Oshxfnrvp [Moles/Vol]3.1 mmol/LLow3.5-5.0ProMethodist Hospital AtascosaComment on above:Performed By: #### 2131-9, FEPR, 2283-8, 2275-4 ####[facility] ([id number])[address] [place] [address], [address] [place] [address]#### CBCA, BMP, 44751-9 ####[facility] ([id number])[address] [place] [address] 38930Zpcngl [Moles/Vol]130 mmol/LLow 134-146ProMethodist Hospital AtascosaComment on above:Performed By: #### 2131-9, FEPR, 2283-09, 2275-05 ####[facility] ([id number])[address] [place] [address], [address] [place] [address]#### CBCRachel, BMP, 76934-4 ####[facility] ([id number])[address] [place] [address] 50540Icsq nitrogen [Mass/Vol]28 mg/dLHigh5-27ProMethodist Hospital AtascosaComment on above: Performed By: #### 2131-9, FEPR, 2283-09, 2275-05 ####[facility] ([id number])[address] [place] [address], [address] [place] [address]#### CBCA, BMP, ####[facility] ([id number])[address] [place] [address] 09763MVF AND AUTO DIFFon 00-71-0170RHKGZDWO BASOPHIL0.1 X10E9/L Normal0.0-0.2Pro[facility]. Cancer HospitalComment on above:Performed By: #### 2131- 9, FEPR, 2284-8, 2275- ####[facility] ([id number])[address] [facility], [address] [place] [address]#### CBCA, BMP, ####[facility] ([id number])[address] [place] [address] 35859JWUMCJCD NEUTROPHIL6.5 X10E9/LNormal1.5-6.6ProMethodist Hospital AtascosaComment on above: Performed By: #### 2-9, FEPR, 2284-8, 2275- ####[facility] ([id number])[address] [facility], [address] [place] [address]#### CBCA, BMP, ####[facility] ([id number])[address] [place] [address] 74484Yaehnehuk/100 WBC (Bld)1.1 %NormalProMethodist Hospital AtascosaComment on above:Performed By: #### 2131-9, FEPR, 2283-8, 2275-05 ####[facility] ([id number])[address] [facility], [address] [place] [address]#### CBCA, BMP, ####[facility] ([id number])[address] [place] [address] 66887Ibriqtyjfxm (Bld) [#/Vol]0.2 10*3/uLNormal0.0-0.4ProMethodist Hospital AtascosaComment on above:Performed By: #### 2132-9, FEPR, 2284-8, 2275- ####[facility] ([id number])[address] [facility], [address] [place] [address]#### CBCA, BMP, ####[facility] ([id number])[address] [place] [address] 35267Vrxejjqywau/100 WBC (Bld)1.7 %NormalProMethodist Hospital AtascosaComment on above:Performed By: #### 2131-9, FEPR, 2283-8, 2275-05 ####[facility] ([id number])[address] [facility], [address] [place] [address]#### CBCRachel, BMP, 00069-7 ####[facility] ([id number])[address] [place] [address] 22915Uzmkufqmzun distribution width (RBC) [Ratio]20.5 %High11.5-15.0ProMethodist Hospital AtascosaComment on above: Performed By: #### 2131-9, FEPR, 2283-09, 2275-05 ####[facility] ([id number])[address] [facility], [address] [place] [address]#### CBCRachel, BMP, 82862-9 ####[facility] ([id number])[address] [place] [address] 66698Ilhpujmrou (Bld) [Volume fraction]22.4 %Nwi52-94YfgIdiksyMethodist Hospital AtascosaComment on above:Performed By: #### 2131-9, FEPR, 2283-09, 2275-05 ####[facility] ([id number])[address] [facility], [address] [place] [address]#### CBCA, BMP, 48016-6 ####[facility] ([id number])[address] [place] [address] 71926Tmggvatsmv (Bld) [Mass/Vol]7.8 g/dLLow 13.0-17.0Guernsey Memorial HospitalComment on above:Performed By: #### 2131-9, FEPR, 2283-8, 2275- ####[facility] ([id number])[address], [address] [place] [address]#### CBCA, BMP, 48463-2 ####[facility] ([id number])[address] [place] [address]36[address] Lymphocytes (Bld) [#/Vol]1.9 10*3/uLNormal1.0-3.5[facility] Comment on above:Performed By: #### 2131-9, FEPR, 2283-8, 2275-05 ####[facility] ([id number])[address], [address] [place] [address]#### CBCA, BMP, ####[facility] ([id number])[address] [place] [address] 12471Mxxvmxmhfzp/100 WBC (Bld)20.0 %Normal [facility] Cancer HospitalComment on above:Performed By: #### 2131-9, FEPR, 2283-8, 2275-05 ####[facility] ([id number])[address], [address] [place] [address]#### CBCA, BMP, 30837-4 ####[facility] ([id number])[address] [place] [address] 75473ZHD (RBC) [Entitic mass]34.5 fjHetx60-83ZavRmuxfs [facility] Cancer HospitalComment on above: Performed By: #### 2132-9, FEPR, 2283-8, 2275-05 ####[facility] ([id number])[address], [address] [place] [address]#### CBCA, BMP, ####[facility] ([id number])[address] [place] [address] 14032CLAV (RBC) [Mass/Vol]34.9 g/zUGmyarj65-60OyaLhzows [facility] Cancer HospitalComment on above:Performed By: #### 2132-9, FEPR, 2284-8, 2275-4 ####[facility] ([id number])[address], [address] [place] [address]#### CBCA, BMP, 05304-8 ####[facility] ([id number])[address] [place] [address] 07279BUP (RBC) [Entitic vol]99 fL Jorawu00-935RxmVmvnptMethodist Hospital AtascosaComment on above:Performed By: #### 2132- 9, FEPR, 2284-8, 2275-4 ####[facility] ([id number])[address] [facility], [address] [place] [address]#### CBCA, BMP, ####[facility] ([id number])[address] [place] [address] Monocytes (Bld) [#/Vol]0.9 10*3/uLNormal0-0.9ProMethodist Hospital AtascosaComment on above:Performed By: #### 2132-9, FEPR, 228-8, 2275- ####[facility] ([id number])[address], [address] [place] [address]#### CBCA, BMP, ####[facility] ([id number])[address] [place] [address] 56711Ndcrhoete/100 WBC (Bld)9.6 %NormalProMethodist Hospital AtascosaComment on above:Performed By: #### 2132-9, FEPR, 228-8, 2275- ####[facility] ([id number])[address], [address] [address]#### CBCA, BMP, 13136-3 ####[facility] ([id number])[address] [place] [address] [place] [address]Enoxxnfkcef/100 WBC (Bld)67.6 % NormalProMethodist Hospital AtascosaComment on above:Performed By: #### 2131-9, FEPR, 2283-8, 2275-4 ####[facility] ([id number])[address], [address] [place] [address]#### CBCA, BMP, 35794-7 ####[facility] ([id number])[address] [place], [place] [address]Nqqbkclr mean volume (Bld) [Entitic vol]9.1 fLNormal7-12[facility] Comment on above:Performed By: #### 2131-9, FEPR, 2283-8, 2275- ####[facility] ([id number])[address], [address] [place] [address]#### CBCA, BMP, ####[facility] ([id number])[address] [place] [address] 89781Rqookflqc (Bld) [#/Vol]145 10*3/zFWgs262-792 [facility] Cancer HospitalComment on above:Performed By: #### 2131-9, FEPR, 2283-8, 2275- ####[facility] ([id number])[address], [address] [place] [address]#### CBCA, BMP, ####[facility] ([id number])[address] [place] [address] 98679UIB COUNT2.27 X10E12/LLow4.10-5.70[facility] Cancer HospitalComment on above:Performed By: #### 2131-9, FEPR, 2283-8, 2275- ####[facility] ([id number])[address], [place] [address]#### CBCA, BMP, 61264-5 ####[facility] ([id number])[address] [place] [address] 09498JKR (Bld) [#/Vol]9.6 10*3/uLNormal4.0-11.0ProMethodist Hospital AtascosaComment on above:Performed By: #### 2132-9, FEPR, 2284-8, 2276-4 ####[facility] ([id number])[address] [place] [address]#### CBCA, BMP, 70259-2 ####[facility] ([id number])[address] [place] [address] 18938Ccgstotm Pathologyon 01-16-2024 Clinical PathologyNormalProMethodist Hospital AtascosaComment on above:Result Comment: [facility] [address] [place] [address] Clinical Pathology ReportPatient Name:BRIAN MANDEL:1950 (Age: 73)Gender:MTaken:4Reported:4Physician(s):JOSE D Coleman CNP ([phone])Copy To: Rec. #:[id number]: #[id number] Pathologic DiagnosisNo monoclonal or other protein bands identified. Report Electronically Signed Outdf/4Dsadie Sandoval MDInterpretation performed [place] [address], License number: [id number].Clinical GuguvzyR33.9, D64.9, E83.42.URINE PROTEIN ELECTROPHORESISSAMPLE NUMBER: [id number] ELECTROPHORETIC CONCENTRATIONS (%) ? 100.0 Urine Protein 1020 mg/L(Electrophoretic gels and densitometric tracings on file in lab.)Specimen(s) Received Urine Protein ElectrophoresisFee Codes(s):1; 23099-98Rwysylnz PathologyNormalGuernsey Memorial HospitalComment on above:Result Comment: [facility] [address] [place] [address] Clinical Pathology ReportPatient Name:BRIAN MANDEL:1950 (Age: 73)Gender:MTaken:01/16/2024eported:01/17/2024hysician(s):Lety Miller APRN- RN REFERRAL ([phone])Copy To: Rec. #:[id number]: #[id number] Pathologic DiagnosisPossible monoclonal band in gamma region, recommend immunofixation for furtherevaluation.Hypoalbuminemia. Report Electronically Signed Outdf/4Dsadie Sandoval MDInterpretation performed [place] [address], License number: [id number].Clinical FrfhgkmJ19.9, D64.9, E83.42, R06.02, J44.9.SERUM PROTEIN ELECTROPHORESISSAMPLE NO: [id number] FRACTION CONCENTRATIONS (g/dL) PATIENT REFERENCE RANGEAlbumin 2.9 L 3.4 - 5.3Alpha-1 globulin 0.3 0.1 - 0.4Alpha-2 globulin 0.6 0.4 - 1.1Beta globulin 0.9 0.5 - 1.2G diamante globulin 1.1 0.5 - 1.61 0.32 0.3Total protein 5.8 L 6.0 - 8.0(Electrophoretic gels and densitometric tracings on file in lab.)Specimen(s) Received Serum Protein ElectrophoresisFee Codes(s):1; 31142-03RCLPNNJOpo 77-81-4589Kjquembp [Mass/Vol]359 ng/cRQvzd22-574VjfPexlen[address] [place] [address] Comment on above:Performed By: #### 2132-9, FEPR, 2284-8, 2275- ####[facility] ([id number])[address] [facility], [address] [place] [address]#### [place], 59532-8 ####[facility] ([id number])[address] [place], [place] [address]Fdqlck [Mass/Vol]on 35-86-6762WBLAE ACID >25.0Normal>5.8ProMethodist Hospital AtascosaComment on above:Result Comment: NEW REFERENCE RANGEPerformed By: #### 2131-9, FEPR, 2283-8, 2275- ####[facility] ([id number])[address] [place] [address], [address] [place] [address]#### [place], 23284-1 ####[facility] ([id number])[address] [place] [address] 49730Bsrzldh Glucometer (BldC) [Mass/Vol]on 01-80-1626Fdkletq [Mass/Vol]122 mg/kVLygl85-07FwiLfdegxMethodist Hospital AtascosaGlucose [Mass/Vol]152 mg/zUCjpb25-48IgtIwdyhsMethodist Hospital AtascosaGlucose [Mass/Vol]112 mg/dTVvuc08-26GicLhnyetMethodist Hospital AtascosaGlucose [Mass/Vol]110 mg/aVSbcr18-42 ProMLanterman Developmental CenterIRON PROFILEon 49-63-7800Bnxa [Mass/Vol]122 ug/dL Sdjjvz47-371WbzLfyrodMethodist Hospital AtascosaComment on above:Performed By: #### 2- 9, FEPR, 4-8, 2275- ####[facility] ([id number])[address] [place] [address], [address] [place] [address]#### MARVA, BMP, 37716-9 ####[facility] ([id number])[address] [place] [address] 57080JPWM UXILYRY263 ug/tGMdc450-621WwqVdvyxbGuernsey Memorial HospitalComment on above:Performed By: #### 2131-9, FEPR, 4-8, 2275-4 ####[facility] ([id number])[facility], [address] [place] [address]#### [place], 73860-9 ####[facility] ([id number])[address] [place] [address] 66083AHEO AGUVOLKVZB44 % SRLJOBPYKDYcdo13-68KghIaifhz Fremont HospitalComment on above:Performed By: #### 2131-9, FEPR, 2283-8, 2275-05 ####[facility] ([id number])[address] [place] [address], [address] [place] [address] 12825#### MARVA, ANGLE, 46451-2 ####[facility] ([id number])[address] [place] [address] 37487AORFHAYTEhg 46-98-1740Zclhejhac [Mass/Vol]2.0 mg/dLNormal1.8-2.6ProMethodist Hospital AtascosaComment on above: Performed By: #### 2131-9, FEPR, 8, 2275-05 ####[facility] ([id number])[address] [place] [address], [address] [place] [address] 11220#### MARVA, ANGLE, 52031-9 ####[facility] ([id number])[address] [place] [address] 92704CEEQQZK CREAT RATIOon 14-17-2581AFZPPP URINE BWABCTL635 mg/LHigh<120ProMethodist Hospital AtascosaComment on above:Performed By: #### UPCR ####[facility] ([id number])[address] [place] [address] 70109F/PRO/CRIMINAL DEFENSE ATTORNEY RATIO CALC0.53High<0.2PSt. [facility] Comment on above:Result Comment: Nephrotic Syndrome is associated with ratios >3.5Performed By: #### UPCR ####[facility] ([id number])[address] [place] [address] 67619XZDKY CREATININE,WAC344.10 mg/dLNormal [facility] HospitalComment on above:Performed By: #### UPCR ####[facility] ([id number])[address] [place] [address] 72064Bkqhhcx (U) [Mass/Vol]on 64-39-0611FKNNJN URINE EEPOMFH928 mg/LHigh<120 [facility] HospitalComment on above:Performed By: #### 2888-6 ####[facility] ([id number])[address] [place] [address] 46060UXARE PROTEIN ELECTROPHORESISon 31-81-2414Zgvguhk [Mass/Vol]2.9 g/dLLow 3.4-5.3PSt. Vincent HospitalComment on above:Performed By: #### SPE ####[facility] ([id number])[address], [address] [place] [address] 16145EMJLC 1 GLOBULIN0.3 g/dLNormal0.1-0.4ProRegional Medical Centerca [facility] Cancer HospitalComment on above:Performed By: #### SPE ####[facility] ([id number])[address], [address] [place] [address] 14632UUSSY 2 GLOBULIN0.6 g/dLNormal0.4-1.1 [facility] HospitalComment on above:Performed By: #### SPE ####[facility] ([id number])[address], [address] [place] [address] 43744RJQV GLOBULIN0.9 g/dLNormal0.5-1.2PSt. Vincent HospitalComment on above: Performed By: #### SPE ####[facility] ([id number])[address], [address] [place] [address] 19521IWHOE GLOBULIN1.1 g/dLNormal0.5-1.6[facility] HospitalComment on above:Performed By: #### SPE ####[facility] ([id number])[address], [address] [place] [address] 42356URPW. ELECTROPHORESIS INTERPSEE SEPARATE REPORTNormalProMethodist Hospital AtascosaComment on above:Performed By: #### SPE ####[facility] ([id number])[address] [facility], [address], [place] [address]Yamqpkk [Mass/Vol]5.8 g/dL Low6.0-8.0ProMethodist Hospital AtascosaComment on above:Performed By: #### SPE ####[facility] ([id number])[address] [facility], [address] [place] [address] 58088WL (MICROSCOPIC)on 35-40-7802LL OXALATE CRYSTALSPRESENTAbnormalNONE ProMLanterman Developmental CenterComment on above:Performed By: #### UMIC ####[facility] ([id number])[address] [place] [address] 73881D.B.CELLS3 /hpfNormal0-5PSt. Vincent HospitalComment on above: Performed By: #### UMIC ####[facility] ([id number])[address] [place] [address] 48857IBLMMEHD EPITHELIUM6 /hpfHigh0-5PSt. Vincent HospitalComment on above:Performed By: #### UMIC ####[facility] ([id number])[address] [place] [address] 63090 W.B.CELLS>766Qrqz9-1CiwTsmxqmSt. Vincent HospitalComment on above:Performed By: #### UMIC ####[facility] ([id number])[address] [place] [address] 75284LGWGP CULTUREon 39-14-7035Ecubuuuu identified Cx Nom (U) CULTURE RESULTS MULTIPLE SPECIES PRESENT. PROBABLE COLLECTION CONTAMINATION. SUGGEST REPEAT SPECIMEN.NormalProMethodist Hospital AtascosaComment on above:Performed By: #### 630-4 ####[facility] ([id number])[address] [facility], [address], [place] [address]QTBCT PROTEIN ELECTROPHORESISon 91-48-5600MZKUP INTERPSEE SEPARATE REPORTNormalProRegional Medical Centerca [facility] Cancer HospitalURN MACROSCOPIC NURon 01-16-2024 BILIRUBIN NURNegativeNormalNEGGuernsey Memorial HospitalComment on above: Performed By: #### NUM ####[facility] ([id number])[address] [place] [address], [place] [address]SUKDT/HGB NURSmallAbnormalNEGGuernsey Memorial HospitalCompontiac general hospital on above:Performed By: #### NUM ####[facility] ([id number])[address] [place] [address] 10291BVAZASC NURNegativeNormalNEGGuernsey Memorial HospitalComment on above:Performed By: #### NUM ####[facility] ([id number])[address] [place] [address] 39744QEEZFNW NURTraceAbnormalNEGGuernsey Memorial Hospital Comment on above:Performed By: #### NUM ####[facility] ([id number])[address] [place] [address], [place] [address]ALFIEYEZV ESTERASE NURLargeAbnormalNEGGuernsey Memorial HospitalComment on above:Performed By: #### NUM ####[facility] ([id number])[address] [place] [address] 52028HKBWIEJ NURNegativeNormalNEGGuernsey Memorial HospitalComment on above:Performed By: #### NUM ####[facility] ([id number])[address] [place] [address], [place] [address]RJ NUR5.5Normal 5.0-8.5ProMedica Lagrange HospitalComment on above:Performed By: #### NUM ####[facility] ([id number])[address] [place] [address] 48765WGOSSFZ NHI967 mg/dLAbnormalNEGProMethodist Hospital AtascosaComment on above:Performed By: #### NUM ####[facility] ([id number])[address] [place] [address] 38478UGBGWSJA GRAVITY NUR1.015Normal 1.003-1.035ProMethodist Hospital AtascosaComment on above:Performed By: #### NUM ####[facility] ([id number])[address] [place] [address] 03484WUJKQYIBRAJE NUR0.2 eu/dLNormal<1.1PSt. [facility] Comment on above:Performed By: #### NUM ####[facility] ([id number])[address] [place] [address] 49923CR RETROPERITONEAL COMPLETEon 02-50-5410OP RETROPERITONEAL COMPLETENormalProMethodist Hospital AtascosaVITAMIN B12on 76-78-3346Agcbbeyrd (Vitamin B12) [Mass/Vol]364 pg/kVPvojhs877-406VqoWxdztjSt. Vincent HospitalComment on above:Performed By: #### 2132-9, FEPR, 2284-8, 2276-4 ####[facility] ([id number])[address] [place] [address], [address] [place] [address] 14570#### CBCA, BMP, 75843-7 ####[facility] ([id number])[address] [place] [address] 97374JWI AND AUTO DIFFon 76-02-5826Zast form neutrophils/100 WBC (Bld)4.0 %NormalProMethodist Hospital AtascosaComment on above:Performed By: #### CBCA, CMP, 68069-1, PINR, 15765-6, 04523-8, 55334-7, 34222-5 ####[facility] ([id number])[address] [place] [address] 14150Focyvthbiyb (Bld) [#/Vol]0.2 10*3/uLNormal0.0-0.4Gu[facility] Memorial HospitalComment on above:Performed By: #### CBCA, CMP, 67268-6, PINR, 50977-1, 11919-0, 68216-1, 18558-5 ####[facility] ([id number])[address] [place] [address] 65954Bbmcneirimh/100 WBC (Bld)2.0 %NormalProMethodist Hospital AtascosaComment on above:Performed By: #### CBCA, CMP, 36428-5, PINR, 77237-2, 53511-3, 81983-1, 69158-8 ####[facility] ([id number])[address] [place] [address] 13618Kywmhvvjwml distribution width (RBC) [Ratio]18.3 %High 11.5-15.0ProMethodist Hospital AtascosaComment on above:Performed By: #### CBCA, CMP, 97263-6, PINR, 44395-2, 54196-1, 26620-0, 92118-0 ####[facility] ([id number])[address] [place] [address] 01406 Hematocrit (Bld) [Volume fraction]19.1 %Dvq53-96CjkGltfxeMethodist Hospital Atascosa Comment on above:Performed By: #### CBCA, CMP, 08762-5, PINR, 40644-8, 28031-2, 65116-5, 54537-9 ####[facility] ([id number])[address] [place] [address] 87630Ptlgwxqtfy (Bld) [Mass/Vol]6.5 g/dL Critically low13.0-17.0Gu[facility] Memorial HospitalComment on above:Performed By: #### CBCA, CMP, 86626-0, PINR, 77373-8, 95529-7, 57979-6, 88479-7 ####[facility] ([id number])[address] [place] [address] 78482Uuuqjexdnpz (Bld) [#/Vol]1.0 10*3/uLNormal1.0-3.5PThe NeuroMedical Centerica [facility] Comment on above:Performed By: #### CBCA, CMP, 87083-8, PINR, 19599-1, 11536-4, 64838-0, 29324-4 ####[facility] ([id number])[address] [place] [address] 21570Zrjblfysdlg/100 WBC (Bld)11.0 %Normal [facility] Cancer HospitalComment on above:Performed By: #### CBCA, CMP, 89271- 4, PINR, 10125-0, 58590-1, 96372-3, 08081-5 ####[facility] ([id number])[address] [place] [address] 57765YWC (RBC) [Entitic mass]35.8 rwWadv90-26BjkUengweMethodist Hospital AtascosaComment on above: Performed By: #### CBCA, CMP, 44840-2, PINR, 69570-3, 60452-1, 25913-2, 99545-5 ####[facility] ([id number])[address] [place] [address] 47245FCAS (RBC) [Mass/Vol]33.8 g/qMFabmlq21-23FdwGmbcjiMethodist Hospital AtascosaComment on above:Performed By: #### CBCA, CMP, 66721-3, PINR, 41306-9, 15113-4, 84922-2, 30972-0 ####[facility] ([id number])[address] [place] [address] 48501DYG (RBC) [Entitic vol]106 jFRwyy96-033 ProMLanterman Developmental CenterComment on above:Performed By: #### CBCA, CMP, 25525- 4, PINR, 73800-3, 16886-1, 11898-7, 63135-9 ####[facility] ([id number])[address] [place] [address] 65224Esrgxdflc (Bld) [#/Vol]0.7 10*3/uLNormal0-0.9ProMethodist Hospital AtascosaComment on above: Performed By: #### CBCA, CMP, 37884-3, PINR, 86616-5, 98271-8, 99934-3, 58913-6 ####[facility] ([id number])[address] [place] [address] 52042Ikfwvwifs/100 WBC (Bld)7.0 %NormalProMethodist Hospital AtascosaComment on above:Performed By: #### CBCA, CMP, 97233-3, PINR, 62850-2, 45738-5, 07483-5, 57712-1 ####[facility] ([id number])[address] [place] [address] 26521Rxsaxqphaqu (Bld) [#/Vol]7.4 10*3/uL High1.5-6.6ProMethodist Hospital AtascosaComment on above:Performed By: #### CBCA, CMP, 36531-7, PINR, 23318-2, 10921-4, 14500-6, 21176-3 ####[facility] ([id number])[address] [place] [address] 19882Zzhtxccj mean volume (Bld) [Entitic vol]9.7 fLNormal7-12PSt. [facility] Comment on above:Performed By: #### CBCA, CMP, 20104-6, PINR, 67187-4, 61394-3, 18575-2, 51874-5 ####[facility] ([id number])[address] [place] [address] 13778Ulaaciszt (Bld) [#/Vol]186 10*3/uLNormal 150-450ProMethodist Hospital AtascosaComment on above:Performed By: #### CBCA, CMP, 19394-8, PINR, 82353-7, 52072-5, 54328-7, 94003-5 ####[facility] ([id number])[address] [place] [address] 49043PYO COUNT1.81 X10E12/LLow4.10-5.70ProMethodist Hospital AtascosaComment on above:Performed By: #### CBCA, CMP, 15112-2, PINR, 65071-4, 71340-3, 85814-5, 45951-1 ####[facility] ([id number])[address] [place] [address] 24467UHL morphology finding Nom (Bld)REVIEWEDSelect Medical Specialty Hospital - [facility]on Comment on above:Performed By: #### CBCA, CMP, 30541-5, PINR, 26002-3, 50048-1, 70695-2, 54683-6 ####[facility] ([id number])[address] [place] [address] 50421UXT FTQPFRKSBL74.0 %NormalProMethodist Hospital AtascosaComment on above:Performed By: #### CBCA, CMP, 91563-3, PINR, 63171-8, 12986-4, 85333-1, 37247-8 ####[facility] ([id number])[address] [place] [address] 42793BFI (Bld) [#/Vol]9.3 10*3/uLNormal 4.0-11.0Gu[facility] HospitalComment on above:Performed By: #### CBCA, CMP, 92710-9, PINR, 35851-4, 24434-1, 78920-1, 60761-7 ####[facility] ([id number])[address] [place] [address] 19522MNBVJSSGHRBIB METABOLIC PANELon 97-69-1247Huhqgzz [Mass/Vol]2.9 g/dLLow3.2-5.3ProMedica [facility] Cancer HospitalComment on above:Performed By: #### CBCA, CMP, 21805-0, PINR, 24689-7, 10572-6, 40246-4, 51520-3 ####[facility] ([id number])[address] [place] [address], [place] [address]GTH [Catalytic activity/Vol]107 U/HWdajsa13-672WtdMqhztgMethodist Hospital AtascosaComment on above:Performed By: #### CBCA, CMP, 80066-2, PINR, 45480-3, 35890-4, 60010-3, 58445-8 ####[facility] ([id number])[address] [place] [address] 57141YNN [Catalytic activity/Vol]13 U/LNormal0-40[facility] Comment on above:Performed By: #### CBCA, CMP, 60408-5, PINR, 65666-1, 30331-9, 43673-0, 23571-8 ####[facility] ([id number])[address] [place] [address] [place] [address]Nsipg gap [Moles/Vol]15 mmol/LNormal5-15 ProMedicSonoma Valley HospitalComment on above:Performed By: #### CBCA, CMP, 32190- 4, PINR, 37322-2, 71009-6, 96907-9, 73606-2 ####[facility] ([id number])[address] [place] [address] [place] [address]WJS [Catalytic activity/Vol]29 U/LNormal0-41ProMethodist Hospital AtascosaComment on above: Performed By: #### CBCA, CMP, 85859-9, PINR, 41065-2, 74209-3, 20173-8, 43554-8 ####[facility] ([id number])[address] [place] [address], [place] [address]Knwwwvvrj [Mass/Vol]1.0 mg/dLNormal0.3-1.2PSt. Vincent HospitalComment on above:Performed By: #### CBCA, CMP, 81832-8, PINR, 87093-0, 98344-4, 81418-5, 22110-4 ####[facility] ([id number])[address] [place] [address] 74700Hgunrrh [Mass/Vol]9.2 mg/dL Normal8.5-10.5PSt. Vincent HospitalComment on above:Performed By: #### CBCA, CMP, 32015-9, PINR, 34208-1, 40841-7, 35654-3, 47102-1 ####[facility] ([id number])[address] [place] [address], [place] [address]Lraltbng [Moles/Vol]91 mmol/MLlh66-341WtiIpqogaMethodist Hospital AtascosaComment on above:Performed By: #### CBCA, CMP, 95499-9, PINR, 46887-4, 76017-4, 37811-6, 22014-2 ####[facility] ([id number])[address] [place] [address] 34923MP4 [Moles/Vol]25 mmol/ZGoxqpn46-44AjiMvlwsuSt. Vincent HospitalComment on above:Performed By: #### CBCA, CMP, 01759-7, PINR, 87675-7, 48328-5, 66890-9, 39276-3 ####[facility] ([id number])[address] [place] [address] 78999Kqiuvynuzj [Mass/Vol]2.26 mg/dLHigh 0.70-1.20ProMethodist Hospital AtascosaComment on above:Result Comment: METHOD TRACEABLE TO IDMS STANDARDPerformed By: #### MARVA, EBONY, 20964-1, PINR, 77172-9, 51633-1, 96879-9, 38161-3 ####[facility] ([id number])[address] [place] [address] 95466WRY/1.73 sq M.predicted among non- blacks MDRD (S/P/Bld) [Vol rate/Area]30 mL/min/{1.73_m2}Low>59ProMethodist Hospital AtascosaComment on above:Result Comment: Reported eGFR is based on theCKD-EPI 2020 equation that doesnot use a race coefficient.Performed By: #### MARVA, EBONY, 25931-4, PINR, 74315-0, 46098-5, 33907-4, 19219-5 ####[facility] ([id number])[address] [place] [address] 26258Mrxlozi [Mass/Vol]147 mg/sADknm84-88MsmWbvagnMethodist Hospital AtascosaComment on above:Performed By: #### EBONY DURHAM, 68830-2, PINR, 32748-2, 07808-0, 96725-7, 14146-3 ####[facility] ([id number])[address] [place] [address] 85363Tyzjcdsgw [Moles/Vol]3.0 mmol/LLow3.5-5.0ProMethodist Hospital AtascosaComment on above:Performed By: #### MARVA, EBONY, 25202-4, PINR, 72230-9, 58047-7, 09463-5, 41446-5 ####[facility] ([id number])[address] [place] [address] 94137Yctnucy [Mass/Vol]6.9 g/dLNormal6.0-8.0 ProMLanterman Developmental CenterComment on above:Performed By: #### MARVA, EBONY, 70794- 4, PINR, 94118-4, 85674-3, 36030-3, 30026-3 ####[facility] ([id number])[address] [place] [address] 09742Yqlxgs [Moles/Vol]131 mmol/ZBzu511-900SneAzidkkMethodist Hospital AtascosaComment on above: Performed By: #### CBCA, CMP, 53187-4, PINR, 53177-7, 23653-6, 26974-9, 04954-2 ####[facility] ([id number])[address] [place] [address] 75458Pojf nitrogen [Mass/Vol]28 mg/dLHigh5-27ProMethodist Hospital AtascosaComment on above:Performed By: #### CBCA, CMP, 48736-8, PINR, 48534-8, 13923-3, 26535-0, 21502-0 ####[facility] ([id number])[address] [place] [address] 61596Widiyt D-dimer DDU (PPP) [Mass/Vol]on 01-15-2024 YVEFJ276 ng/mL DDUHigh<255ProMethodist Hospital AtascosaComment on above:Result Comment: Results >=255ng/mL DDU: Results may beindicative of the presence of VTE. The useof the Wells score and further diagnostictests should be considered. Elevated D-Dimerlevels can alsobe associated with DIC,neoplasm, , trauma and liver disease.Elevated levels of rheumatoid factor may leadto an overestimation of the D-Dimer level.Performed By: #### CBCA, CMP, 27335-0, PINR, 71479-3, 46433-5, 78444-7, 79703-8 ####[facility] ([id number])[address] [place] [address] 44107UCLIHOTTEot 87-50-9736Wehpgepsg [Mass/Vol]1.0 mg/dLLow1.8-2.6[facility] Comment on above:Performed By: #### CBCA, CMP, 27921-5, PINR, 07850-9, 99027-7, 62950-0, 72440-1 ####[facility] ([id number])[address] [place] [address] 07499Lcejtffpscu peptide B [Mass/Vol]on 37-40-4017Xdxohdlhfhc peptide B (Bld) [Mass/Vol]69 pg/mLNormal<100.0Guernsey Memorial HospitalComment on above:Performed By: #### CBCA, CMP, 30065-8, PINR, 89456-1, 48967-6, 47176-3, 14264-0 ####[facility] ([id number])[address] [place] [address] 38259KYOKJEP AND INRon 07-86-6468WFW Coag (PPP) [Relative time]1.1 {INR}Normal0.8-1.1PSt. [facility] Comment on above:Performed By: #### CBCA, CMP, 07591-5, PINR, 08686-2, 32948-9, 50871-0, 89896-3 ####[facility] ([id number])[address] [place] [address] 98929SR Coag (PPP) [Time]13.0 sNormal9.8-13.2 [facility]sey Memorial HospitalComment on above:Result Comment: NEW REFERENCE RANGE Performed By: #### CBCA, CMP, 25872-9, PINR, 65539-9, 53497-1, 14868-6, 09377-1 ####[facility] ([id number])[address] [place] [address] 75748Dkmhcgfv I.cardiac High sensitivity method [Mass/Vol]on HOUR TROP I, HIGH WIMPFJSXKAU32 ng/LHigh<21ProMethodist Hospital AtascosaComment on above:Result Comment: Elevations of hs-Troponin may be due to causesother than myocardial ischemia.Recommend serial hs-Troponin testing be performed.For the initial evaluation and management of chestpain patients, refer to the algorithms linked below.Emergency Patient:[email or web address] =[email or web address]&uh=[email or web address]:[email or web address]? [email or web address]&uh=acaeaPerformed By: #### 83816-9 ####[facility] ([id number])[address] [place] [address] 21952UPPCIHBQ I, HIGH LLLVYTLRZLP52 ng/LHigh<21Gu[facility] Memorial HospitalComment on above:Result Comment: Elevations of hs-Troponin may be due to causesother than myocardial ischemia.Recommend serial hs-Troponin testing be performed.For the initial evaluation and management of chestpain patients, refer to the algorithms linked below.Emergency Patient:[email or web address]/[email or web address]?d =[email or web address]&[email or web address]&uh=acaeaInpatient:[email or web address]/[email or web address]? [email or web address]&a=37498&uh=acaeaPerformed By: #### CBCA, CMP, 27162-2, PINR, 87266-5, 78395-9, 24662-5, 13041-3 ####[facility] ([id number])[address] [place] [address]459CK CHEST 1 VWon 79-85-0900PG CHEST 1 VWNormalProMethodist Hospital AtascosaaPTT Coag (PPP) [Time]on 01-15-2024 aPTT Coag (Bld) [Time]20 fEls47-45GurLrpwtqGuernsey Memorial HospitalComment on above: Result Comment: NEW REFERENCE RANGEPerformed By: #### CBCA, CMP, 85866-4, PINR, 86444-5, 10809-1, 20233-3, 21294-7 ####[facility] ([id number])[address] [place] [address], [place], [place] [id number] [id number] patient to schedule a hospital follow up appointment with [facility] gastro for cirrhosis. Schedule with Dr. Schultz or nurse if patient wants in sooner Result: left voicemail to scheduleNormalUniversity of St. Luke'[facility]lands HospitalXR CHEST 1 VWon 61-15-6898BR CHEST 1 VWNormalProMedica Usc Kenneth Norris Jr. Cancer HospitalBASI METABOLIC PANLon 80-70-5644Dzrub gap [Moles/Vol]5 mmol/LNormal5-15Pro[facility]nesville HospitalComment on above:Performed By: #### MARVA, 2776-02, , LIVR, BMP ####[facility] ([id number])[address], [address], [place] [address]Ioxkhgy [Mass/Vol]8.8 mg/dLNormal8.5-10.5Pro[facility]ica Paynesville HospitalComment on above:Performed By: #### MARVA 2776-02, , LIVR, BMP ####[facility] ([id number])[address], [address], [place] [address]Ehyplrwo [Moles/Vol]106 mmol/PBwanxu77-374QvqRqjvbj [place] HospitalComment on above:Performed By: #### MARVA, 2776-02, , LIVR, BMP ####[facility] ([id number])[address], [address], [place] [address]NZ2 [Moles/Vol]30 mmol/SOmcxhh55-73FunAftfni Paynesville HospitalComment on above: Performed By: #### MARVA, 2776-02, , LIVR, BMP ####[facility] ([id number])[address], [address], [place] [address]Wgrbvqyzaa [Mass/Vol] 0.72 mg/dLNormal0.60-1.30ProMedica Ward HospitalComment on above:Result Comment: METHOD TRACEABLE TO IDMS STANDARDPerformed By: #### MARVA, 2776-02, , ANGLE MEYERS ####[facility] ([id number])[address], [place] [address]zGVX (CKD-EPI) NON-RACE DEPENDENT>90Normal>59ProMedica Ward HospitalComment on above:Result Comment: Reported eGFR is based on theCKD-EPI 2020 equation that doesnot use a race coefficient.Performed By: #### MARVA 2776-02, , MIRA, ANGLE ####[facility] ([id number])[address], [place] [address]Dgsmidw [Mass/Vol]86 mg/dL Vkpjvw66-78DasYpndcy Ward HospitalComment on above:Performed By: #### MARVA 2776-02, , MIRA, BMP ####[facility] ([id number])[address] [address], [place] [address]Vdkyibktl [Moles/Vol]4.6 mmol/LNormal3.5-5.0 [facility] Ward HospitalComment on above:Performed By: #### MARVA 2776-02, , MIRA, BMP ####[facility] ([id number])[address] [address], [place] [address]Eeruei [Moles/Vol]141 mmol/KOkwtfv660-954LetTkdeia Ward HospitalComment on above:Performed By: #### MARVA 2776-02, , LIVJesse, BMP ####[facility] ([id number])[address], [place] [address]Gwqc nitrogen [Mass/Vol]13 mg/dLNormal5-27ProMedica Ward HospitalComment on above:Performed By: #### MARVA, 2776-02, , LIVR, BMP ####[facility] ([id number])[address], [address], [place] [address]NHX AND AUTO DIFFon 56-22-2814JQBUICPO BASOPHIL0.1 X10E9/LNormal0.0-0.2 [facility]ville HospitalComment on above:Performed By: #### MARVA, 2776-02, , LIVR, BMP ####[facility] ([id number])[address], [place] [address]IEQMBPNR NEUTROPHIL3.2 X10E9/LNormal1.5-6.6ProAkron Children'S HospitalComment on above:Performed By: #### MARVA, 2776-02, , LIVR, BMP ####[facility] ([id number])[address], [place] [address]Myerdvhnk/100 WBC (Bld)1.3 %NormalSt. Rita's Hospital Comment on above:Performed By: #### MARVA, 2776-02, , LIVR, BMP ####[facility] ([id number])[address], [address] [place] [address] Eosinophils (Bld) [#/Vol]0.3 10*3/uLNormal0.0-0.4[facility] Comment on above:Performed By: #### MARVA, 2776-02, , LIVR, BMP ####[facility] ([id number])[address], [address] [place] [address] Eosinophils/100 WBC (Bld)5.9 %NormalSt. Rita's HospitalComment on above: Performed By: #### MARVA, 2776-02, , LIVR, BMP ####[facility] ([id number])[address], [address], [place] [address]Jnlesnuhvlg distribution width (RBC) [Ratio]20.1 %High11.5-15.0[facility] Comment on above:Performed By: #### MARVA, 2776-02, , LIVR, BMP ####[facility] ([id number])[address], [address] [address] Hematocrit (Bld) [Volume fraction]22.7 %Lrg68-88AisUlqwrp [place] HospitalComment on above:Performed By: #### MARVA, 2776-02, , LIVR, BMP ####[facility] ([id number])[address], [address] [place] [address] 870[address]Azymfzeohk (Bld) [Mass/Vol]7.6 g/dLLow13.0-17.0[facility] HospitalComment on above: Performed By: #### MARVA, 2776-02, , LIVR, BMP ####[facility] ([id number])[address] [address] [place] [address] 99231Pkrarxsmtci (Bld) [#/Vol]1.3 10*3/uLNormal1.0-3.5PThe NeuroMedical Centerica Paynesville HospitalComment on above: Performed By: #### MARVA, 2776-02, , LIVR, BMP ####[facility] ([id number])[address] [address], [place] [address]Sebdpudkokt/100 WBC (Bld)24.8 %NormalProCommunity Memorial Hospital HospitalComment on above:Performed By: #### MARVA, 2776-02, , LIVR, BMP ####[facility] ([id number])[address], [address] [place] [address] 40373MJC (RBC) [Entitic mass] 33.8 xcPbccxz67-69FhxRlxnkc Ward HospitalComment on above:Performed By: #### CBCRachel, 2776-02, , LIVR, BMP ####[facility] ([id number])[address], [address] [place] [address] 59078AJGH (RBC) [Mass/Vol]33.7 g/bGYynhbe77-53VpqFfqvth Ward HospitalComment on above:Performed By: #### CBCRachel, 2776-02, , LIVR, BMP ####[facility] ([id number])[address], [address] [place] [address] 87144YDL (RBC) [Entitic vol]100 nVIpgaxm05-724ZvkMwtrov Ward HospitalComment on above:Performed By: #### CBCRachel, 2776-02, , LIVR, BMP ####[facility] ([id number])[address], [address] [place] [address] 04768Czpmeduhm (Bld) [#/Vol]0.4 10*3/uLNormal 0-0.9Pro[facility]ica Ward HospitalComment on above:Performed By: #### CBCRachel, 2776-02, , LIVR, BMP ####[facility] ([id number])[address], [address] [place] [address] 34651Zglndebzi/100 WBC (Bld)7.6 %NormalProMedica Ward HospitalComment on above:Performed By: #### CBCRachel, 2776-02, , LIVR, BMP ####[facility] ([id number])[address], [address] [place] [address] 64728Nnotpfsngho/100 WBC (Bld)60.4 %NormalProMedica Ward HospitalComment on above:Performed By: #### CBCRachel, 2776-02, , LIVR, BMP ####[facility] ([id number])[address], [address] [place] [address] 19476Fsrjbihz mean volume (Bld) [Entitic vol]10.0 fLNormal7-12Pro[facility] Ward HospitalComment on above:Performed By: #### MARVA, 2776-02, , LIVR, BMP ####[facility] ([id number])[address], [address] [place] [address] 30014Lcpmccfvw (Bld) [#/Vol]93 10*3/mNYes379-087XeuAdrwqk Ward HospitalComment on above:Performed By: #### MARVA, 2776-02, , LIVJesse, BMP ####[facility] ([id number])[address], [address] [place] [address] 43194BSH COUNT2.27 X10E12/LLow 4.10-5.70Pro[facility] Ward HospitalComment on above:Performed By: #### MARVA 2776-02, , LIVR, BMP ####[facility] ([id number])[address], [address] [place] [address] 47147QDY (Bld) [#/Vol]5.3 10*3/uLNormal4.0-11.0 [facility] HospitalComment on above:Performed By: #### MARVA, 2776-02, , LIVR, BMP ####[facility] ([id number])[address], [address] [place] [address] 80790Zreyrzk Glucometer (BldC) [Mass/Vol]on 11-30-2023 Glucose [Mass/Vol]151 mg/iZGckq40-11OvmVxixfj Ward HospitalGlucose [Mass/Vol] 104 mg/tWWvvg38-50GycOacqmi Ward HospitalLIVER PANELon 31-98-6020Grthije [Mass/Vol]2.7 g/dLLow3.2-5.3[facility] HospitalComment on above:Performed By: #### MARVA, 2776-02, , LIVR, BMP ####[facility] ([id number])[address], [address], [place] [address]NVI [Catalytic activity/Vol]141 U/VPfxk81-827DspTucthq Ward HospitalComment on above: Performed By: #### MARVA, 2776-02, , LIVR, BMP ####[facility] ([id number])[address], [address]TO[facility] [place], [place] [address]AOZ [Catalytic activity/Vol]26 U/LNormal0-40[facility] HospitalComment on above:Performed By: #### MARVA, 2776-02, , LIVR, BMP ####[facility] ([id number])[address], [address], [place] [address]BES [Catalytic activity/Vol]40 U/LNormal0-41[facility] HospitalComment on above:Performed By: #### MARVA, 2776-02, , LIVR, BMP ####[facility] ([id number])[address], [address], [place] [address]Zndlpxchp [Mass/Vol]0.6 mg/dLNormal0.3-1.2[facility] HospitalComment on above:Performed By: #### MARVA, 2776-02, , LIVR, BMP ####[facility] ([id number])[address], [address], [place] [address]Ytqsazqat.direct [Mass/Vol] 0.1 mg/dLNormal0.0-0.4[facility] HospitalComment on above:Performed By: #### MARVA, 2776-02, , LIVR, BMP ####[facility] ([id number])[address], [address], [place] [address]Ncioimd [Mass/Vol]5.6 g/dL Low6.0-8.0[facility] HospitalComment on above:Performed By: #### MARVA, 2777-1, , LIVR, BMP ####[facility] ([id number])[address], [address] [place] [address] 86165WRSPUTKUUxh 02-24-1041Izqxdimhz [Mass/Vol] 1.5 mg/dLLow1.8-2.6[facility] HospitalComment on above:Performed By: #### CBCRachel, 2777-1, , LIVR, BMP ####[facility] ([id number])[address] [facility], [address] [place] [address] 728[address]EVTQGEFFNCmb 11-30-2023 Phosphate [Mass/Vol]2.7 mg/dLNormal2.4-4.9ProAkron Children'S HospitalComment on above:Performed By: #### MARVA, 2777-1, , LIVR, BMP ####[facility] ([id number])[address], [address] [place] [address]RCABW HEPATITIS PANELon 03-82-8688SRMZ HCV W/PCR REFLXNon-ReactiveNormalNRCTSt. Rita's HospitalComment on above:Result Comment: If recent infection suspected, recommendrepeat testing (>2 months).Gcawkj-rf-ursblv ratio is <0.80.Performed By: #### 80237-1, 4-2, 1967-08, 3, TSHR, AHP, 2063-, CMP, 1834-1, 6771- 0, 2276-4 ####[facility] ([id number])[address], [address] [place] [address] 09356MTBMCFDST A IGMNon-ReactiveNormalNRCTClinton Memorial Hospital HospitalComment on above:Performed By: #### 94794-6, 4-2, 1967-08, 3, TSHR, AHP, 2063-4, CMP, 1834-1, 6771-0, 2276-4 ####[facility] ([id number])[address] [facility], [address], [place] [address]RFMKYELRX B CORE IGM NegativeNormalNEGProAkron Children'S HospitalComment on above:Performed By: #### 96478-3, 2324-2, 1967-08, 3, TSHR, AHP, 2063-4, CMP, 1834-1, 6771-0, 2276-4 ####[facility] ([id number])[address] [facility], [address], [place] [address]IYRHQBLUH B SURF AGNegativeNormalNEGSt. Rita's HospitalComment on above:Performed By: #### 73567-5, 4-2, 1967-08, 2464-04, TSHR, AHP, 2063-05, CMP, 1834-1, 6771-0, 6-4 ####[facility] ([id number])[address] [facility], [address] [place] [address] 90962NDO [Mass/Vol]on 85-32-8993XPBEB FETOPROTEIN 2.5 ng/mLNormal0-9.9ProAkron Children'S HospitalComment on above:Performed By: #### 79516-8, 4-2, 1967-08, 3, TSHR, AHP, 2063-05, CMP, 1834-1, 6771-0, 2276-4 ####[facility] ([id number])[address], [address], [place] [address]Zkykg 1 antitrypsin Nephelometry [Mass/Vol]on 60-70-2754IKHJB 1 YRDOKSYSTXK306 mg/nTBxwxmv66-103LljItnfds [place] HospitalComment on above: Performed By: #### 58755-4, 2324-2, 1967-08, 2464-3, TSHR, AHP, 2063-4, CMP, 1834-1, 6771-0, 2276-4 ####[facility] ([id number])[address], [address], [place] [address]YDAPC METABOLIC PANLon 17-80-6181Nlkrn gap [Moles/Vol]4 mmol/LLow5-15ProAkron Children'S HospitalComment on above:Performed By: #### MARVA, 2777-1, BMP, ####[facility] ([id number])[address], [address], [place] [address]Wgshwou [Mass/Vol]8.5 mg/dL Normal8.5-10.5PMercy Health St. Anne HospitalComment on above:Performed By: #### MARVA, 277-, BMP, ####[facility] ([id number])[address], [address], [place] [address]Ctdhlboy [Moles/Vol]106 mmol/MCdbzfl78-968 ProMUniversity Hospitals Conneaut Medical CenterComment on above:Performed By: #### MARVA, 2776-, ANGLE, ####[facility] ([id number])[address], [address], [place] [address]EB4 [Moles/Vol]28 mmol/KMjzcaj00-31JbzNsndzq [facility] Comment on above:Performed By: #### MARVA, 277-, ANGLE, ####[facility] ([id number])[address], [address], [place] [address] Creatinine [Mass/Vol]0.80 mg/dLNormal0.60-1.30ProAkron Children'S HospitalComment on above:Result Comment: METHOD TRACEABLE TO IDMS STANDARDPerformed By: #### MARVA, 2777-1, BMP, ####[facility] ([id number])[address], [address], [place] [address]lMAU (CKD-EPI) NON-RACE DEPENDENT>90Normal >59Pro[facility]ica Ward HospitalComment on above:Result Comment: Reported eGFR is based on theCKD-EPI 2020 equation that doesnot use a race coefficient.Performed By: #### MARVA, 277-, ANGLE, ####[facility] ([id number])[address], [address], [place] [address]Uympchr [Mass/Vol]92 mg/dL Bbxqjb48-31TrwEwrxcg Ward HospitalComment on above:Performed By: #### MARVA, 2776-02, BMP, ####[facility] ([id number])[address], [address], [place] [address]Essbwxmql [Moles/Vol]4.4 mmol/LNormal3.5-5.0 [facility] HospitalComment on above:Performed By: #### MARVA 2776-, ANGLE, ####[facility] ([id number])[address], [address], [place] [address]Xrksty [Moles/Vol]138 mmol/THxjubq044-981PnkSouowu Ward HospitalComment on above:Performed By: #### MARVA, 2776-02, BMP, ####[facility] ([id number])[address], [address], [place] [address]Xifm nitrogen [Mass/Vol]11 mg/dLNormal5-27[facility] HospitalComment on above:Performed By: #### MARVA, 27708-21, BMP, ####[facility] ([id number])[address], [address], [place] [address]INZJPVUXT,DIRECT on 92-36-9084Nhclkwfom.direct [Mass/Vol]0.2 mg/dLNormal0.0-0.4[facility] HospitalComment on above:Performed By: #### 09677-4, 2324-2, 1968-7, 2465-3, TSHR, AHP, 2064-4, CMP, 1834-1, 6771-0, 2276-4 ####[facility] ([id number])[address], [address], [place] [address]UQS AND AUTO DIFFon 70-59-2019VIISZCRN BASOPHIL0.1 X10E9/LNormal0.0-0.2[facility] Comment on above:Performed By: #### CBCA, 7-1, BMP, ####[facility] ([id number])[address], [address] [place] [address] ABSOLUTE NEUTROPHIL3.3 X10E9/LNormal1.5-6.6[facility] HospitalComment on above:Performed By: #### CBCRachel, 2776-1, BMP, ####[facility] ([id number])[address], [address] [place] [address] 240[address]Rqydspqof/100 WBC (Bld)1.5 %NormalProRegional Medical Centerca [place]nesville HospitalComment on above:Performed By: #### CBCRachel, 2776-, BMP, ####[facility] ([id number])[address], [address] [place] [address]Gsyxbpbqodn (Bld) [#/Vol]0.3 10*3/uLNormal 0.0-0.4[facility] [place] HospitalComment on above:Performed By: #### CBCA, 2777- 1, BMP, ####[facility] ([id number])[address], [address] [place] [address]65[address]Atcvbzwtoak/100 WBC (Bld)5.6 %NormalProRegional Medical Centerca [place]nesville HospitalComment on above:Performed By: #### CBCA, 2777-1, BMP, ####[facility] ([id number])[address] [address] [place] [address]Jexkblzgigz distribution width (RBC) [Ratio]20.3 %High11.5-15.0[facility] HospitalComment on above:Performed By: #### MARVA, 277-, BMP, ####[facility] ([id number])[address] [address] [place] [address] 28963Xmoqmstudg (Bld) [Volume fraction]22.4 %Tqo10-34FxyXpmfpj [facility] Comment on above:Performed By: #### MARVA, 2776-, BMP, ####[facility] ([id number])[address] [address] [place] [address] Hemoglobin (Bld) [Mass/Vol]7.7 g/dLLow13.0-17.0[facility] HospitalComment on above:Performed By: #### MARVA, 2776-02, BMP, ####[facility] ([id number])[address] [address]Bsuvnzromxj (Bld) [#/Vol]1.1 10*3/uLNormal1.0-3.5[facility] HospitalComment on above: Performed By: #### MARVA, 2776-, BMP, ####[facility] ([id number])[address] [address]Dxnndrkhwar/100 WBC (Bld) 21.5 %NormalProCommunity Memorial Hospital HospitalComment on above:Performed By: #### MARVA, 2776-, BMP, ####[facility] ([id number])[address], [address], [place] [address]DZH (RBC) [Entitic mass]34.2 qtVnwe41-66 [facility] HospitalComment on above:Performed By: #### MARVA, 2776-, BMP, ####[facility] ([id number])[address], [address] [place] [address]EUJD (RBC) [Mass/Vol]34.3 g/tNLtmbyb03-12UenJminzq Ward HospitalComment on above:Performed By: #### MARVA, 2776-, BMP, ####[facility] ([id number])[address], [address] [place] [address]44[address]YGZ (RBC) [Entitic vol]100 kPEyaglz93-720MxnXavfit Ward HospitalComment on above:Performed By: #### MARVA, 2776-, BMP, ####[facility] ([id number])[address], [address] [place] [address]Nncxdksow (Bld) [#/Vol]0.3 10*3/uLNormal0-0.9[facility] HospitalComment on above:Performed By: #### MARVA, 2776-, BMP, ####[facility] ([id number])[address], [address] [place] [address] 25557Znwvhbogr/100 WBC (Bld)6.2 %NormalProMedica Ward HospitalComment on above:Performed By: #### MARVA, 2776- , BMP, ####[facility] ([id number])[address], [address], [place] [address]Wmhgpuppdxx/100 WBC (Bld)65.2 %NormalProMedica Ward HospitalComment on above:Performed By: #### MARVA, 2776-, BMP, ####[facility] ([id number])[address], [address] [place] [address] 386[address]Yxxkyokf mean volume (Bld) [Entitic vol]9.5 fLNormal7-12[facility] HospitalComment on above:Performed By: #### MARVA, 2777-1, BMP, ####[facility] ([id number])[address], [address] [place] [address]Rimrchmid (Bld) [#/Vol]79 10*3/jBDxs904-659BtgMdbjiu [place] HospitalComment on above:Performed By: #### MARVA, 277-, BMP, ####[facility] ([id number])[address], [address] [place] [address]GBP COUNT2.25 X10E12/LLow4.10-5.70[facility] HospitalComment on above:Performed By: #### MARVA, 277-, BMP, ####[facility] ([id number])[address], [address] [place] [address] 969[address]RXE (Bld) [#/Vol]5.0 10*3/uLNormal4.0-11.0 [facility] HospitalComment on above:Performed By: #### MARVA, 277-, BMP, ####[facility] ([id number])[address], [address] [place] [address] 014[address]UVWQYUMBAOOXE METABOLIC PANELon 75-30-3284Ncztars [Mass/Vol] 2.8 g/dLLow3.2-5.3[facility] HospitalComment on above:Performed By: #### 19869-4, 2324-2, 1968-7, 2465-3, TSHR, AHP, 2064-4, CMP, 1834-1, 6771-0, 2276-4 ####[facility] ([id number])[address], [address] [place] [address]OAQ [Catalytic activity/Vol]150 U/PGijx50-497EieCdbiol [facility] Comment on above:Performed By: #### 01537-5, 2324-2, 1967-08, 2464-3, TSHR, AHP, 2063-4, CMP, 1834-1, 6771-0, 2276-4 ####[facility] ([id number])[address], [address], [place] [address]VXD [Catalytic activity/Vol]25 U/LNormal0-40[facility] HospitalComment on above:Performed By: #### 07136-1, 4-2, 1967-08, 3, TSHR, AHP, 2063-4, CMP, 1834-1, 6771- 0, 2276-4 ####[facility] ([id number])[address], [address], [place] [address]Cwuhs gap [Moles/Vol]7 mmol/LNormal5-15ProAkron Children'S HospitalComment on above:Performed By: #### 42940-0, 4-2, 1967-08, 2464-04, TSHR, AHP, 2063-4, CMP, 1834-1, 6771-0, 2276-4 ####[facility] ([id number])[address], [address], [place] [address]JXY [Catalytic activity/Vol]39 U/LNormal0-41Pro[facility] Children'S HospitalComment on above:Performed By: #### 97617-3, 4-2, 1967-08, 3, TSHR, AHP, 2063-4, CMP, 1834-1, 6771- 0, 2276-4 ####[facility] ([id number])[address], [address], [place] [address]Uwaodqtpp [Mass/Vol]0.5 mg/dLNormal0.3-1.2PMercy Health St. Anne HospitalComment on above:Performed By: #### 89080-1, 2324-2, 1967-08, 2465-3, TSHR, AHP, 4-4, CMP, 1834-1, 6771-0, 2276-4 ####[facility] ([id number])[address], [address], [place] [address]Mhnksjp [Mass/Vol]8.5 mg/dL Normal8.5-10.5PPeoples Hospital HospitalComment on above:Performed By: #### 39898-6, 2323-2, 1967-08, 2464-04, TSHR, AHP, 2063-4, CMP, 1834-1, 6771-0, 2276-4 ####[facility] ([id number])[address], [address], [place] [address]Gmzhnsjl [Moles/Vol]106 mmol/TKcqvmk86-441IapOmmcfv [place] HospitalComment on above:Performed By: #### 95631-7, 2323-2, 1967-08, 2464-04, TSHR, AHP, 2063-4, CMP, 1834-1, 6771-0, 2276-4 ####[facility] ([id number])[address], [address], [place] [address]RN[address] [Moles/Vol]27 mmol/ZKhabnq06-80XkdIpjymmMercy Health St. Anne HospitalComment on above:Performed By: #### 65320-2, 2323-2, 1967-08, 2464-04, TSHR, AHP, 2063-4, CMP, 1834-1, 6771-0, 2276-4 ####[facility] ([id number])[address], [place] [address]Glzmaufrdb [Mass/Vol]0.76 mg/dLNormal0.60-1.30ProAkron Children'S HospitalComment on above: Result Comment: METHOD TRACEABLE TO IDMS STANDARDPerformed By: #### 92518-7, 4-2, 1967-08, 2464-3, TSHR, AHP, 4-4, CMP, 1834-1, 6771-0, 2276-4 # ###[facility] ([id number])[address], [place] [address]zBRK (CKD-EPI) NON-RACE DEPENDENT>90Normal>59[facility] Comment on above:Result Comment: Reported eGFR is based on theCKD-EPI 2020 equation that doesnot use a race coefficient.Performed By: #### 90774-8, 2323-, 1967-08, 2464-04, TSHR, AHP, 2063-4, CMP, 1834-1, 6771-0, 2275-4 ####[facility] ([id number])[address] [address] Glucose [Mass/Vol]113 mg/aZScbg40-42EsuGuvupcAkron Children'S HospitalComment on above: Performed By: #### 05728-8, 2323-, 1967-08, 2464-04, TSHR, AHP, 2063-05, CMP, 1834-1, 71-0, 2275-4 ####[facility] ([id number])[address], [address] [place] [address]Njzumarqq [Moles/Vol]4.5 mmol/LNormal3.5-5.0 ProMedicOhioHealth Nelsonville Health CenterComment on above:Performed By: #### 52619-2, 2323-2, 1967-08, 2464-04, TSHR, AHP, 4, CMP, 1834-1, 6771-0, 2275-4 ####[facility] ([id number])[address], [address] [place] [address] Protein [Mass/Vol]5.4 g/dLLow6.0-8.0ProAkron Children'S HospitalComment on above: Performed By: #### 93218-3, 2323-2, 1967-08, 3, TSHR, AHP, 2063-4, CMP, 1834-1, 6771-0, 2276-4 ####[facility] ([id number])[address], [address], [place] [address]Oqjsur [Moles/Vol]140 mmol/GPxkulm748-014 [facility] CenterComment on above:Performed By: #### 44020-1, 2324-2, 1967-08, 3, TSHR, AHP, 2063-4, CMP, 1834-1, 6771-0, 2276-4 ####[facility] ([id number])[address], [address], [place] [address]Mzdv nitrogen [Mass/Vol]12 mg/dLNormal5-27ProAkron Children'S HospitalComment on above: Performed By: #### 61317-8, 2323-2, 1967-08, 2464-04, TSHR, AHP, 2063-4, CMP, 1834-1, 6771-0, 2275-4 ####[facility] ([id number])[address], [address], [place] [address]Ruqmjmmxnmkfc [Mass/Vol]on 11-29-2023 EWIERFHXFKYVL68 mg/yGRdxsnt13-90PuhKtpdal [place] HospitalComment on above: Performed By: #### 06492-8, 2323-2, 1967-08, 2464-04, TSHR, AHP, 2063-4, CMP, 1834-1, 6771-0, 2275-4 ####[facility] ([id number])[address], [address], [place] [address]ZGJSSUTZsf 26-09-6441Ejcjqxpn [Mass/Vol]369 ng/fXQdat74-984ZgjGyiztzAkron Children'S HospitalComment on above:Performed By: #### 18551-5, 4-2, 1967-08, 2464-04, TSHR, AHP, 2063-4, CMP, 1834-1, 6771-0, 2276-4 ####[facility] ([id number])[address], [address] [place] [address]WEFno 89-55-2148Dgtds glutamyl transferase [Catalytic activity/Vol]101 U/L High9-64St. Rita's HospitalComment on above:Performed By: #### 63769-0, 2324-2, 1967-, 2464-3, TSHR, AHP, 2063-4, CMP, 1834-1, 6771-0, 6-4 # ###[facility] ([id number])[address], [address] [place] [address]Zcqrcoz Glucometer (BldC) [Mass/Vol]on 48-24-9894Dvzqnul [Mass/Vol]103 mg/nIBbfo95-30WvhUytxvr [place] HospitalGlucose [Mass/Vol]117 mg/lJJqrc63-99 [facility] HospitalGlucose [Mass/Vol]95 mg/yGVidfqx75-65YtuUiimkn [place] HospitalGlucose [Mass/Vol]93 mg/tJYnfenb61-05MbpGzgltk [place] HospitalIGGon 02-55-5904IyB [Mass/Vol]1014 mg/kPVuebir666-3867IugMfxymx [facility] CenterComment on above:Performed By: #### 45754-9, 2324-2, 1967-, 2464-3, TSHR, AHP, 2063-4, CMP, 1834-1, 6771-0, 6-4 ####[facility] ([id number])[address], [address] [place] [address]JCUNIXVYAjr 49-41-2261Gmjsofnqh [Mass/Vol] 2.1 mg/dLNormal1.8-2.6ProAkron Children'S HospitalComment on above:Performed By: #### CBCA, 2777-1, BMP, 64258-6 ####[facility] ([id number])[address], [address] [place] [address] 214[address]DR LUMBAR SPINE WO CONTon 54-77-7703KC LUMBAR SPINE WO CONTNormalProMedica Ward HospitalMitochondria M2 Ab IA Qn (S)on 09-50-7315Uifmgescpzcgf Ab (M2)<0.1Normal<0.1 (Negative)ProMedica Ward HospitalComment on above:Result Comment: NOTETest Performed by:[facility] [address], [place], [place] [address]Shd Director: Anisha Pacheco Ph.D.; CLIA# [id number] By: #### 22143-4, 2323-2, 1967-, 2464-3, TSHR, AHP, 2063-4, CMP, 1834-1, 6771-0, 2276-4 ####[facility] ([id number])[address] [facility], [address] [place] [address]Chnbdhg Ab IA Ql (S)on 48-55-3025JLC Screen w/reflexNegative NormalNEGProMedica Ward HospitalComment on above:Result Comment: Testing performed using multiplex flowimmunoassay. Eleven different antigensassociated with systemic autoimmunediseases (dsDNA,Sm,Sm/FIELD ASSISTANT,FIELD ASSISTANT,Chromatin,SSA,SSB,Jennie- 1,Scl70,Ribo P,Centromere B)are included in this screening test.Performed By: #### 93975-8, 2323-2, 1967-, 2464-3, TSHR, AHP, 2063-4, CMP, 1834-1, 6771-0, 2276-4 ####[facility] ([id number])[address] [facility], [address] [place] [address]YEURVWNYQUxd 53-88-9789Eokgpzjzz [Mass/Vol]2.7 mg/dLNormal 2.4-4.9ProRegional Medical Centerca Ward HospitalComment on above:Performed By: #### 2777-1 ####[facility] ([id number])[address] [facility], [address] [place] [address] 997[address]Uvsfhvtph [Mass/Vol]1.8 mg/dLLow2.4-4.9ProMedica Ward HospitalComment on above:Performed By: #### CBCA, 2777-1, BMP, 51527-1 ####[facility] ([id number])[address], [place] [address]FCGZJKA AND INR on 90-91-0882AOT Coag (PPP) [Relative time]1.1 {INR}Normal0.8-1.1PMercy Health St. Anne HospitalComment on above:Performed By: #### 25538-4, PINR ####[facility] ([id number])[address], [id number], [place] [address]TV Coag (PPP) [Time]12.5 sNormal9.8-13.2PMercy Health St. Anne HospitalComment on above: Performed By: #### 17062-7, PINR ####[facility] ([id number])[address], [place], [place] [address]Yrbpel muscle Ab IF Ql (S)on 16-41-6159Cmldde Muscle AbNegativeNormalNegativeProRegional Medical Centerca [facility] Comment on above:Result Comment: NOTENegative: No further testing will be performed ADDITIONAL INFORMATION This test was developed and its performance characteristicsdetermined by [facility] in a manner consistent with CLIArequirements. This test has not been cleared or approvedbythe U.S. Food and Drug Administration.Test Performed by:[address] [address]Bnx Director: Anisha Pacheco Ph.D.; CLIA# [id number] By: #### 55486-9, 2324-2, 1968-7, 2465-3, TSHR, AHP, 2064-4, CMP, 1834-1, 6771-0, 2276-4 ####[facility] ([id number])[address], [address], [place] [address]GEG WITH REFLEXon 24-09-0717THN5.09 uIU/mLNormal0.49-4.67[facility] Ward HospitalComment on above:Performed By: #### 83384-9, 2324-2, 1968-7, 2465-3, TSHR, AHP, 2064-4, CMP, 1834-1, 6771-0, 2276-4 ####[facility] ([id number])[address], [address], [place] [address]bMQI Coag (PPP) [Time]on 83-83-5108zXLQ Coag (Bld) [Time]34 dVaklyv17-70NxlQrwlyy Ward HospitalComment on above:Performed By: #### 87251-4, PINR ####[facility] ([id number])[address], [place], [place] [address]VOSBD METABOLIC PANLon 69-83-9083Symwh gap [Moles/Vol]4 mmol/LLow5-15Pro[facility] Ward HospitalComment on above:Performed By: #### 13245-6, CBCA, BMP, 2777-1 ####[facility] ([id number])[address], [address], [place] [address]Fcscbvn [Mass/Vol]8.6 mg/dLNormal8.5-10.5Pro[facility] Ward HospitalComment on above: Performed By: #### 37321-4, CBCA, BMP, 2777-1 ####[facility] ([id number])[address], [address], [place] [address]Oqikvguc [Moles/Vol]106 mmol/WPwcama42-322FtxJfpeqb Ward HospitalComment on above:Performed By: #### 73866-0, CBCA, BMP, 2777-1 ####[facility] ([id number])[address], [address], [place] [address]YB3 [Moles/Vol]30 mmol/BQpsewl01-82XchBrhbqe [facility] HospitalComment on above:Performed By: #### 01617-5, CBCA, BMP, 2776-02 ####[facility] ([id number])[address], [address], [place] [address]Jglcgrmkwu [Mass/Vol]0.84 mg/dLNormal0.60-1.30[facility] Comment on above:Result Comment: METHOD TRACEABLE TO IDMS STANDARDPerformed By: #### 64645-2, CBCA, BMP, 2776-02 ####[facility] ([id number])[address] [address]uXJI (CKD-EPI) NON-RACE DEPENDENT>90Normal>59Pro[facility] HospitalComment on above:Result Comment: Reported eGFR is based on theCKD-EPI 2020 equation that doesnot use a race coefficient.Performed By: #### 41510-7, CBCA, BMP, 2776-02 ####[facility] ([id number])[address] [address], [place] [address]Xpahvwe [Mass/Vol]97 mg/aEEybjgs95-25SrlYwwjrv [place] HospitalComment on above:Performed By: #### 15780-4, CBCRachel, ANGLE, 2776-02 ####[facility] ([id number])[address] [address], [place] [address]Pzhpurosk [Moles/Vol]4.2 mmol/LNormal3.5-5.0[facility] HospitalComment on above:Performed By: #### 03738-3, CBCA, BMP, 2776-02 ####[facility] ([id number])[address], [address], [place] [address]Ocyery [Moles/Vol]140 mmol/MNyiatr010-093 [facility] HospitalComment on above:Performed By: #### 94186-7, CBCA, BMP, 2776-02 ####[facility] ([id number])[address], [address], [place] [address]Kgqy nitrogen [Mass/Vol]7 mg/dLNormal5-27[facility] HospitalComment on above:Performed By: #### 54857-9, CBCA, BMP, 2776-02 ####[facility] ([id number])[address], [address], [place] [address]EUB AND AUTO DIFFon 54-42-8594UAHNFCVJ BASOPHIL0.1 X10E9/LNormal0.0-0.2 [facility] HospitalComment on above:Performed By: #### 56002-3, CBCA, BMP, 2776-02 ####[facility] ([id number])[address], [address], [place] [address]MOWMMIGR NEUTROPHIL2.5 X10E9/LNormal1.5-6.6ProRegional Medical Centerca [place] HospitalComment on above:Performed By: #### 86068-5, CBCA, BMP, 2776-02 ####[facility] ([id number])[address], [address], [place] [address]Zcgljsyeu/100 WBC (Bld)1.3 %NormalProCommunity Memorial Hospital HospitalComment on above:Performed By: #### 61677-6, CBCA, BMP, 2776-02 ####[facility] ([id number])[address], [address], [place] [address]Vcujcjyjskv (Bld) [#/Vol]0.3 10*3/uLNormal0.0-0.4ProReg[facility] Centerca [place] HospitalComment on above: Performed By: #### 03381-3, CBCA, BMP, 2776-02 ####[facility] ([id number])[address], [address], [place] [address]Okbrhyvetes/100 WBC (Bld) 6.2 %NormalProRegional Medical Centerca [place] HospitalComment on above:Performed By: #### 84872-3, CBCA, BMP, 2776-02 ####[facility] ([id number])[address], [address] [place] [address]Hkrhuasljjk distribution width (RBC) [Ratio]20.7 %High 11.5-15.0ProRegional Medical Centerca [place] HospitalComment on above:Performed By: #### 37731-4, CBCA, BMP, 2776-02 ####[facility] ([id number])[address] [address] [place] [address]Ygkumjrcbv (Bld) [Volume fraction]25.4 %Juq80-08 [facility] HospitalComment on above:Performed By: #### 02172-0, CBCA, BMP, 2776-02 ####[facility] ([id number])[address] [address] [place] [address]Kkzsnlprca (Bld) [Mass/Vol]8.6 g/dLLow13.0-17.0[facility] HospitalComment on above:Performed By: #### 85901-5, CBCA, BMP, 2776-02 ####[facility] ([id number])[address] [address]Pxcypfjvtsd (Bld) [#/Vol]0.9 10*3/uLLow1.0-3.5PThe NeuroMedical Centerica [facility] Comment on above:Performed By: #### 20616-9, CBCA, BMP, 2776- ####[facility] ([id number])[address] [address] Lymphocytes/100 WBC (Bld)22.6 %NormalProCommunity Memorial Hospital HospitalComment on above: Performed By: #### 94812-0, CBCA, BMP, 2776- ####[facility] ([id number])[address], [address] [place] [address]XAN (RBC) [Entitic mass] 33.5 lgGahpde61-18JfbKvpeks Ward HospitalComment on above:Performed By: #### 72000-6, CBCA, BMP, 277- ####[facility] ([id number])[address], [address] [place] [address]ASLU (RBC) [Mass/Vol]33.7 g/qNTvtqif57-00 [facility] HospitalComment on above:Performed By: #### 00565-8, CBCA, BMP, 277- ####[facility] ([id number])[address], [address] [place] [address]CLM (RBC) [Entitic vol]99 qQXznbbf96-228PxePelnqb Ward HospitalComment on above:Performed By: #### 99246-8, CBCA, BMP, 2776- ####[facility] ([id number])[address] [address] [place] [address]Yhrpvahos (Bld) [#/Vol]0.3 10*3/uLNormal0-0.9[facility] Comment on above:Performed By: #### 77268-2, CBCA, BMP, 277- ####[facility] ([id number])[address], [address] [place] [address] Monocytes/100 WBC (Bld)7.9 %NormalProMedica Ward HospitalComment on above: Performed By: #### 29133-8, CBCA, BMP, 277- ####[facility] ([id number])[address], [address] [place] [address]Rlmbypwisfj/100 WBC (Bld) 62.0 %NormalProMedica Ward HospitalComment on above:Performed By: #### 82233- 9, CBCA, BMP, 2776-02 ####[facility] ([id number])[address], [place] [address]Mrkjngoa mean volume (Bld) [Entitic vol]10.1 fL Normal7-12[facility] HospitalComment on above:Performed By: #### 36526-3, CBCA, BMP, 2776- ####[facility] ([id number])[address], [address] [place] [address]Pyphtiave (Bld) [#/Vol]83 10*3/kXNkz287-153OmlHskjtj Ward HospitalComment on above:Performed By: #### 39613-0, CBCA, BMP, 2776- ####[facility] ([id number])[address], [address] [place] [address]MXM COUNT2.56 X10E12/LLow4.10-5.70[facility] HospitalComment on above:Performed By: #### 23036-0, CBCA, BMP, 2776-02 ####[facility] ([id number])[address], [address] [place] [address]KSK (Bld) [#/Vol]4.0 10*3/uLNormal4.0-11.0[facility] HospitalComment on above:Performed By: #### 40413-8, CBCA, BMP, 2776-02 ####[facility] ([id number])[address], [address] [place] [address]Tsiwycq Glucometer (BldC) [Mass/Vol]on 44-11-5148Qajvkbw [Mass/Vol]103 mg/cGChyc42-41AmaFrlerc Ward HospitalGlucose [Mass/Vol]108 mg/aJJvgv05-48TajEpzadp [facility] HospitalGlucose [Mass/Vol]100 mg/xKBrnp30-36GplVwnain Ward HospitalGlucose [Mass/Vol]124 mg/dL Lszi01-14UssZyrcwl Ward HospitalGlucose [Mass/Vol]100 mg/aWAbhw39-62PgmQreqvv [facility] HospitalMAGNESIUMon 15-04-5530Ivtlnhfax [Mass/Vol]1.7 mg/dLLow1.8-2.6 [facility] HospitalComment on above:Performed By: #### 10387-5 ####[facility] ([id number])[address], [address] [place] [address] Magnesium [Mass/Vol]1.9 mg/dLNormal1.8-2.6[facility] HospitalComment on above:Result Comment: SPECIMEN HEMOLYZED, RESULTS INCREASEDMARKEDLY HEMOLYZED Performed By: #### 15329-9 ####[facility] ([id number])[address], [address], [place] [address]Ioaaesxrn [Mass/Vol]1.7 mg/dLLow1.8-2.6 [facility] HospitalComment on above:Performed By: #### 38670-3, CBCA, BMP, 2777-1 ####[facility] ([id number])[address], [address], [place] [address]RSDADAPBEGem 05-37-2081Fggcunyxz [Mass/Vol]2.9 mg/dLNormal 2.4-4.9[facility] HospitalComment on above:Performed By: #### 82245-8, CBCA, BMP, 2777-1 ####[facility] ([id number])[address], [address], [place] [address]NHNDE METABOLIC PANLon 29-26-5970Rjwjh gap [Moles/Vol]5 mmol/LNormal5-15[facility] HospitalComment on above:Performed By: #### 2777-1, CBCA, 39777-1, BMP ####[facility] ([id number])[address], [address], [place] [address]Jufvupy [Mass/Vol]8.7 mg/dLNormal8.5-10.5 [facility] HospitalComment on above:Performed By: #### 2777-1, MARVA, , BMP ####[facility] ([id number])[address], [address], [place] [address]Fggskssg [Moles/Vol]108 mmol/PLapkmj67-824DcdAskxhw Ward HospitalComment on above:Performed By: #### 2777-1, MARVA, , BMP ####[facility] ([id number])[address], [address], [place] [address]UR3 [Moles/Vol]25 mmol/UFjwkrk18-63FpdSiwnib [facility] HospitalComment on above:Performed By: #### 2777-1, MARVA, , BMP ####[facility] ([id number])[address], [address] [place] [address]Omjvgnavqd [Mass/Vol] 0.81 mg/dLNormal0.60-1.30Pro[facility] Centerca [place] HospitalComment on above:Result Comment: METHOD TRACEABLE TO IDMS STANDARDPerformed By: #### 2777-1, MARVA, , BMP ####[facility] ([id number])[address], [address], [place] [address]vTGU (CKD-EPI) NON-RACE DEPENDENT>90Normal>59[facility] HospitalComment on above:Result Comment: Reported eGFR is based on theCKD-EPI 2020 equation that doesnot use a race coefficient.Performed By: #### 2777-1, MARVA, , BMP ####[facility] ([id number])[address], [address], [place] [address]Yskwpgx [Mass/Vol]90 mg/fLVziadl13-45KmcGsxlda Ward HospitalComment on above:Performed By: #### 2777-1, CBCA, , BMP ####[facility] ([id number])[address], [address], [place] [address]Fksjstvlm [Moles/Vol]3.6 mmol/LNormal3.5-5.0[facility] Comment on above:Performed By: #### 2777-1, CBCA, , BMP ####[facility] ([id number])[address], [address] [address] Sodium [Moles/Vol]138 mmol/ARkuajj638-928CxpRzwapa [place] HospitalComment on above:Performed By: #### 2777-1, CBCA, , BMP ####[facility] ([id number])[address], [address] [place] [address]Ivcd nitrogen [Mass/Vol]9 mg/dLNormal5-27ProAkron Children'S HospitalComment on above:Performed By: #### 2777-1, CBCRachel, , BMP ####[facility] ([id number])[address], [address] [place] [address]MXH AND AUTO DIFFon 66-17-9455BNVZEGTY BASOPHIL0.0 X10E9/LNormal0.0-0.2PMercy Health [facility] Comment on above:Performed By: #### 2777-1, CBCA, , BMP ####[facility] ([id number])[address], [address] [place] [address], [place] [address] ABSOLUTE NEUTROPHIL2.6 X10E9/LNormal1.5-6.6St. [facility]'s HospitalComment on above:Performed By: #### 2777-1, CBCA, , BMP ####[facility] ([id number])[address], [address], [place] [address]Codlziqod/100 WBC (Bld)1.2 %NormalProCommunity Memorial Hospital HospitalComment on above:Performed By: #### 2777-1, CBCA, , BMP ####[facility] ([id number])[address], [address] [place] [address]Iwflmwmcsvj (Bld) [#/Vol]0.2 10*3/uLNormal 0.0-0.4Pro[facility] Centerca [place] HospitalComment on above:Performed By: #### 2777-1, CBCA, , BMP ####[facility] ([id number])[address], [address] [place] [address]Vbqvhvprtzn/100 WBC (Bld)5.0 %NormalProCommunity Memorial Hospital HospitalComment on above:Performed By: #### 2777-1, CBCA, , BMP ####[facility] ([id number])[address], [address] [place] [address]Zxeegvwwpsj distribution width (RBC) [Ratio]20.7 %High11.5-15.0[facility] HospitalComment on above:Performed By: #### 2777-1, CBCA, , BMP ####[facility] ([id number])[address] [address] [place] [address]Flbwkhumxc (Bld) [Volume fraction]23.9 %Ujw82-01UroPlvvba [facility] Comment on above:Performed By: #### 2777-1, CBCA, , BMP ####[facility] ([id number])[address] [address] [place] [address] Hemoglobin (Bld) [Mass/Vol]8.3 g/dLLow13.0-17.0[facility] HospitalComment on above:Performed By: #### 2777-1, CBCA, , BMP ####[facility] ([id number])[address], [address] [place] [address]Jsdneagxnan (Bld) [#/Vol]0.7 10*3/uLLow1.0-3.5[facility] HospitalComment on above: Performed By: #### 2777-Mitchell, CBCRachel, , BMP ####[facility] ([id number])[address], [address] [place] [address]Adkkecovuzc/100 WBC (Bld) 18.2 %NormalProRegional Medical Centerca Ward HospitalComment on above:Performed By: #### 277Selena-Mitchell, CBCRachel, , BMP ####[facility] ([id number])[address], [address] [place] [address]GYB (RBC) [Entitic mass]34.5 qmJmff48-76UpmQqtqjm [facility] HospitalComment on above:Performed By: #### 277Selena-Mitchell, CBCRachel, , BMP ####[facility] ([id number])[address], [address] [place] [address]ZTVQ (RBC) [Mass/Vol]35.0 g/lNTevgox91-78AmiLitzub [facility] HospitalComment on above:Performed By: #### 2777-Mitchell, CBCRachel, , BMP ####[facility] ([id number])[address] [address] [place] [address] 256[address]VKX (RBC) [Entitic vol]99 qNUquxqe86-966RigNrzftb [facility] HospitalComment on above: Performed By: #### 2777-1, CBCRachel, , BMP ####[facility] ([id number])[address], [address] [place] [address]Diggvqbtm (Bld) [#/Vol]0.4 10*3/uLNormal0-0.9[facility] HospitalComment on above:Performed By: #### 2777-1, CBCA, , BMP ####[facility] ([id number])[address], [address], [place] [address]Wkdyvqwik/100 WBC (Bld)9.1 %NormalProMedica Ward HospitalComment on above:Performed By: #### 2777-1, CBCA, , BMP ####[facility] ([id number])[address], [address], [place] [address]Nahbkykazse/100 WBC (Bld)66.5 %NormalProMedica Ward HospitalComment on above:Performed By: #### 2777-1, CBCA, , BMP ####[facility] ([id number])[address], [address], [place] [address]Njukfeis mean volume (Bld) [Entitic vol]9.6 fLNormal7-12[facility] HospitalComment on above: Performed By: #### 2777-1, CBCA, , BMP ####[facility] ([id number])[address], [address], [place] [address]Zvrbdsfpk (Bld) [#/Vol]76 10*3/pTUyo417-093SroAhpnva [facility] HospitalComment on above:Performed By: #### 2777-1, CBCA, , BMP ####[facility] ([id number])[address], [address], [place] [address]GGR COUNT2.42 X10E12/LLow4.10-5.70[facility] HospitalComment on above:Performed By: #### 2777-1, CBCA, , BMP ####[facility] ([id number])[address], [address], [place] [address]LRI (Bld) [#/Vol]3.9 10*3/uLLow4.0-11.0[facility] HospitalComment on above:Performed By: #### 2777-1, MARVA, , BMP ####[facility] ([id number])[address], [address], [place] [address]Gaeslkl Glucometer (BldC) [Mass/Vol]on 96-74-0699Bihqpfy [Mass/Vol]147 mg/vBMabm86-32 [facility] HospitalGlucose [Mass/Vol]166 mg/yUQnxm83-26XanQszmjr [facility] HospitalGlucose [Mass/Vol]106 mg/xCJyfn51-38OkqUqdryp Ward HospitalGlucose [Mass/Vol]87 mg/cDBgtxgs03-25EonVccaca [facility] HospitalMAGNESIUMon 11-27-2023 Magnesium [Mass/Vol]2.2 mg/dLNormal1.8-2.6[facility] HospitalComment on above:Performed By: #### 2823-3, ####[facility] ([id number])[address], [address], [place] [address]Fxnxchxjj [Mass/Vol]1.4 mg/dLLow1.8-2.6[facility] HospitalComment on above:Performed By: #### 2777-1MARVA, , BMP ####[facility] ([id number])[address], [address], [place] [address]UNUNHVKNULbl 53-87-3139Lswwhfkcd [Mass/Vol] 3.3 mg/dLNormal2.4-4.9[facility] HospitalComment on above:Performed By: #### 2777-1, MARVA, , BMP ####[facility] ([id number])[address], [address], [place] [address]TZORUHNGNnn 11-27-2023 Potassium [Moles/Vol]4.3 mmol/LNormal3.5-5.0[facility] HospitalComment on above:Performed By: #### 2823-3, 79902-9 ####[facility] ([id number])[address], [address], [place] [address]FACRJ METABOLIC PANLon 31-01-1609Naaor gap [Moles/Vol]5 mmol/LNormal5-15[facility] Comment on above:Performed By: #### 38842-6, 277-, BMP, CBCA ####[facility] ([id number])[address], [place] [address] Calcium [Mass/Vol]8.9 mg/dLNormal8.5-10.5PMercy Health St. Anne HospitalComment on above:Performed By: #### 09068-2, 277-, ANGLE, CBCA ####[facility] ([id number])[address], [address], [place] [address]Pwjrfnmb [Moles/Vol] 110 mmol/ZPirm96-767SzkUrhzaiAkron Children'S HospitalComment on above:Performed By: #### 92901-0, 277-, ANGLE, CBCA ####[facility] ([id number])[address], [address], [place] [address]EO2 [Moles/Vol]25 mmol/JHvhszc06-89AtnQddcxaMercy Health St. Anne HospitalComment on above:Performed By: #### 85893-3, 2776-, ANGLE, CBCA ####[facility] ([id number])[address], [address], [place] [address]Hrnaxcnaxy [Mass/Vol]0.80 mg/dLNormal0.60-1.30[facility] Comment on above:Result Comment: METHOD TRACEABLE TO IDMS STANDARDPerformed By: #### 32081-6, 2777-, BMP, CBCA ####[facility] ([id number])[address], [address], [place] [address]oBOC (CKD-EPI) NON-RACE DEPENDENT>90Normal>59[facility] HospitalComment on above:Result Comment: Reported eGFR is based on theCKD-EPI 2020 equation that doesnot use a race coefficient.Performed By: #### 97643-4, 2777-, MARVA BARBOUR ####[facility] ([id number])[address], [address] [place] [address]Qiidlfh [Mass/Vol]78 mg/yJMvyuhk58-80ZrfMrqbxt [place] HospitalComment on above:Performed By: #### 48377-1, 27708-21, ANGLE, CBCRachel ####[facility] ([id number])[address] [address] [place] [address] 10503Nmekswhya [Moles/Vol]4.3 mmol/LNormal3.5-5.0[facility] HospitalComment on above:Performed By: #### 90148-8, 2776-02, ANGLE, CBCRachel ####[facility] ([id number])[address] [address] [place] [address] 23411Wtilne [Moles/Vol]140 mmol/NPtopvz127-551 [facility] HospitalComment on above:Performed By: #### 34642-6, 2777-, ANGLE, CBCA ####[facility] ([id number])[address] [address] [place] [address] 83781Lbar nitrogen [Mass/Vol]10 mg/dLNormal5-27[facility] HospitalComment on above:Performed By: #### 17278-4, 2777-, ANGLE, CBCA ####[facility] ([id number])[address], [address] [place] [address]BSM AND AUTO DIFFon 59-74-1795LNOVWLPN BASOPHIL0.0 X10E9/LNormal0.0-0.2 [facility] HospitalComment on above:Performed By: #### 61891-9, 2776-02, BMP, CBCA ####[facility] ([id number])[address], [address], [place] [address]JMMMQOLN NEUTROPHIL3.3 X10E9/LNormal1.5-6.6[facility] HospitalComment on above:Performed By: #### 58321-8, 2776-02, BMP, CBCA ####[facility] ([id number])[address], [address] [place] [address]Fzrbodipv/100 WBC (Bld)0.8 %NormalProRegional Medical Centerca [facility]nes[facility] HospitalComment on above:Performed By: #### 18502-8, 2776-02, ANGLE, CBCA ####[facility] ([id number])[address], [address] [place] [address] 67347Xpqqephqzjr (Bld) [#/Vol]0.3 10*3/uLNormal0.0-0.4[facility] HospitalComment on above: Performed By: #### 98106-0, 2776-02, ANGLE, CBCA ####[facility] ([id number])[address] [address], [place] [address]Dxtqfiozuts/100 WBC (Bld) 5.8 %NormalProRegional Medical Centerca Paynes[place] HospitalComment on above:Performed By: #### 66008-0, 2776-02, ANGLE, CBCA ####[facility] ([id number])[address], [address] [place] [address]Aacmmaywkjf distribution width (RBC) [Ratio]21.6 %High 11.5-15.0Pro[facility] HospitalComment on above:Performed By: #### 67684-9, 27708-21, BMP, CBCA ####[facility] ([id number])[address], [address] [place] [address]Dvcekkwwtx (Bld) [Volume fraction]26.6 %Fix86-05 [facility] HospitalComment on above:Performed By: #### 85666-2, 2776-02, BMP, CBCA ####[facility] ([id number])[address], [address] [place] [address]Uldsopjdba (Bld) [Mass/Vol]9.0 g/dLLow13.0-17.0[facility] HospitalComment on above:Performed By: #### 65579-9, 2776-02, BMP, CBCA ####[facility] ([id number])[address], [address] [place] [address] 68631Zdsdvxnwqbt (Bld) [#/Vol]0.7 10*3/uLLow1.0-3.5PMercy Health [facility] Comment on above:Performed By: #### 84227-8, 2776-02, BMP, CBCA ####[facility] ([id number])[address], [address] [place] [address] Lymphocytes/100 WBC (Bld)14.6 %NormalProCommunity Memorial Hospital HospitalComment on above: Performed By: #### 32819-0, 2776-02, BMP, CBCA ####[facility] ([id number])[address], [address], [place] [address]EHD (RBC) [Entitic mass] 33.8 ucLuqgtk05-03QgsSyyqky [place] HospitalComment on above:Performed By: #### 65963-9, 2776-02, BMP, CBCA ####[facility] ([id number])[address], [address], [place] [address]NRUC (RBC) [Mass/Vol]33.9 g/uDIwpexy05-64 ProMC[facility] HospitalComment on above:Performed By: #### 95735-5, 2776-02, BMP, CBCA ####[facility] ([id number])[address], [address] [place] [address] 87355BQA (RBC) [Entitic vol]100 wJWqvqva51-655MbvCvbrld Ward HospitalComment on above:Performed By: #### 54448-3, 277-, BMP, CBCA ####[facility] ([id number])[address], [address] [place] [address] 25941Oktzphbdy (Bld) [#/Vol]0.3 10*3/uLNormal0-0.9Pro[facility] Comment on above:Performed By: #### Alivia, 2776-02, BMP, CBCA ####[facility] ([id number])[address], [address] [place] [address] 27277 Monocytes/100 WBC (Bld)6.0 %NormalProMedica Ward HospitalComment on above: Performed By: #### Alivia, 2776-02, BMP, CBCA ####[facility] ([id number])[address], [address] [place] [address] 41716Vhbwpydopqp/100 WBC (Bld) 72.8 %NormalProMedica Ward HospitalComment on above:Performed By: #### 43249- Mackenzie, 27708-21, BMP, CBCA ####[facility] ([id number])[address], [address] [place] [address] 10458Tecvempr mean volume (Bld) [Entitic vol]9.9 fL Normal7-12ProMedica Ward HospitalComment on above:Performed By: #### 79708-4, 2776-, BMP, CBCA ####[facility] ([id number])[address], [address] [place] [address] 97252Jsktvjqiv (Bld) [#/Vol]83 10*3/iHPns204-330UehTnpijx Ward HospitalComment on above:Performed By: #### 81847-9, 2776-, MARVA BARBOUR ####[facility] ([id number])[address], [address] [place] [address] 31896OYM COUNT2.67 X10E12/LLow4.10-5.70[facility] HospitalComment on above:Performed By: #### 33072-0, 2776-02, MARVA BARBOUR ####[facility] ([id number])[address], [address] [place] [address] 86529FBS (Bld) [#/Vol]4.6 10*3/uLNormal4.0-11.0[facility] HospitalComment on above:Performed By: #### 69279-8, 2776-02, MARVA BARBOUR ####[facility] ([id number])[address], [address] [place] [address] 01366Vllkfj [Mass/Vol]on 80-80-7276Vaowgj, S92 mcg/aNAuvznz05-565AtyHztygu [place] HospitalComment on above:Result Comment: NOTE ADDITIONAL INFORMATION This test was developed and its performance characteristicsdetermined by [facility] in a manner consistent with CLIAreq uirements. This test has not been cleared or approved bythe U.S. Food and Drug Administration.Test Performed by:[address] [address]Cjr Director: Anisha Pacheco Ph.D.; CLIA# [id number] By: #### 17667-3, 27708-21, MARVA BARBOUR ####[facility] ([id number])[address], [address] [place] [address]322 Glucose Glucometer (BldC) [Mass/Vol]on 46-31-1999Tgktcjv [Mass/Vol]93 mg/dL Svmybq27-98XlcCvphdsAkron Children'S HospitalGlucose [Mass/Vol]143 mg/vROqmd80-81 [facility] HospitalGlucose [Mass/Vol]113 mg/nKDjkz65-75ZrhMusoig [place] HospitalGlucose [Mass/Vol]87 mg/wVXbtfdp99-43RzrRhzsce [facility] HospitalMAGNESIUM on 05-61-5072Jlojwmojx [Mass/Vol]2.3 mg/dLNormal1.8-2.6Pro[facility] Comment on above:Performed By: #### 10961-4, 2777-1, ANGLE, CBCA ####[facility] ([id number])[address], [address] [place] [address] 61169 PHOSPHORUSon 93-87-9343Dmylwmydg [Mass/Vol]3.9 mg/dLNormal2.4-4.9[facility] HospitalComment on above:Performed By: #### 17320-6, 2777-1, ANGLE, CBCA ####[facility] ([id number])[address], [address] [place] [address] 14754DUQJP METABOLIC PANLon 47-90-5919Asdgg gap [Moles/Vol]5 mmol/LNormal5-15 [facility] HospitalComment on above:Performed By: #### ANGLE, PINR, CBCA ####[facility] ([id number])[address], [address] [place] [address] 71526Kquveve [Mass/Vol]8.4 mg/dLLow8.5-10.5[facility]ica [place] HospitalComment on above:Performed By: #### ANGLE, PINR, CBCA ####[facility] ([id number])[address], [address] [place] [address] 47091Adjmvrot [Moles/Vol]113 mmol/JUekm61-871MfaDvjzlt [place] HospitalComment on above:Performed By: #### ANGLE, PINR, CBCA ####[facility] ([id number])[address], [address] [place] [address] 43447MU2 [Moles/Vol]22 mmol/XYwiuiy91-41WvqXqycaa Ward HospitalComment on above:Performed By: #### ALKA BARBOUR CBCA ####[facility] ([id number])[address], [address], [place] [address]Ksopytragm [Mass/Vol]0.95 mg/dLNormal0.60-1.30[facility] HospitalComment on above: Result Comment: METHOD TRACEABLE TO IDMS STANDARDPerformed By: #### ALKA BARBOUR CBCA ####[facility] ([id number])[address], [address] [place] [address] 504[address]ESM/1.73 sq M.predicted among non-blacks MDRD (S/P/Bld) [Vol rate/Area]83 mL/min/{1.73_m2}Normal>59[facility] HospitalComment on above: Result Comment: Reported eGFR is based on theCKD-EPI 2020 equation that doesnot use a race coefficient.Performed By: #### ALKA BARBOUR CBCA ####[facility] ([id number])[address] [address] [place] [address] 91498Kgttlgd [Mass/Vol]105 mg/fCOush74-71TztHiyarr Ward HospitalComment on above:Performed By: #### ALKA BARBOUR CBCA ####[facility] ([id number])[address] [address] [place] [address] 93574Wlbooirku [Moles/Vol]4.3 mmol/LNormal3.5-5.0 [facility] HospitalComment on above:Performed By: #### ALKA BARBOUR CBCA ####[facility] ([id number])[address], [address] [place] [address] 09666Nzczhx [Moles/Vol]140 mmol/OPeycwm233-029HlhCsvlnf Ward HospitalComment on above:Performed By: #### ALKA BARBOUR CBCA ####[facility] ([id number])[address], [address], [place] [address]Qbxd nitrogen [Mass/Vol]12 mg/dLNormal5-27[facility] HospitalComment on above:Performed By: #### ANGLE PINR, CBCA ####[facility] ([id number])[address], [address], [place] [address]Oiarj gap [Moles/Vol]7 mmol/LNormal5-15[facility] HospitalComment on above:Performed By: #### MARVA BARBOUR, , 2776-02 ####[facility] ([id number])[address], [address], [place] [address]Jwbmimn [Mass/Vol]8.9 mg/dLNormal8.5-10.5[facility] HospitalComment on above:Performed By: #### ANGLE CBCRachel, , 2776-02 ####[facility] ([id number])[address], [address], [place] [address]Lnmhkyzz [Moles/Vol]110 mmol/IGqvf36-203WkyFcgvfg Ward HospitalComment on above: Performed By: #### MARVA BARBOUR, , 2776-02 ####[facility] ([id number])[address], [address], [place] [address]GR7 [Moles/Vol]23 mmol/L Dchdkc59-79CwxXsgops Ward HospitalComment on above:Performed By: #### ANGLE CBCA, , 2776-02 ####[facility] ([id number])[address], [address], [place] [address]Wmjqpwvaqu [Mass/Vol]0.87 mg/dLNormal0.60-1.30 [facility] HospitalComment on above:Result Comment: METHOD TRACEABLE TO IDMS STANDARDPerformed By: #### MARVA BARBOUR, , 2776-02 ####[facility] ([id number])[address] [address]LOV/1.73 sq M.predicted among non-blacks MDRD (S/P/Bld) [Vol rate/Area]90 mL/min/{1.73_m2} Normal>59[facility] HospitalComment on above:Result Comment: Reported eGFR is based on theCKD-EPI 2020 equation that doesnot use a race coefficient. Performed By: #### MARVA BARBOUR, , 2776-02 ####[facility] ([id number])[address] [address]Ioxsdfv [Mass/Vol]82 mg/dL Csoqkt51-42ZfwKfjscw Ward HospitalComment on above:Performed By: #### MARVA BARBOUR, , 2776-02 ####[facility] ([id number])[address] [address]Umnoueqfw [Moles/Vol]4.0 mmol/LNormal3.5-5.0 [facility] HospitalComment on above:Performed By: #### MARVA BARBOUR, , 2776-02 ####[facility] ([id number])[address] [address]Oldwtv [Moles/Vol]140 mmol/PXhswkd719-178XszOsygbj Ward HospitalComment on above:Performed By: #### MARVA BARBOUR, , 2776-02 ####[facility] ([id number])[address] [address]Pjem nitrogen [Mass/Vol]13 mg/dLNormal5-27[facility] HospitalComment on above:Performed By: #### MARVA BARBOUR, , 2776-02 ####[facility] ([id number])[address], [address], [place] [address]OHC AND AUTO DIFFon 74-12-3325BDPCPLEL BASOPHIL0.0 X10E9/LNormal0.0-0.2[facility] [place] HospitalComment on above:Performed By: #### ANGLE PINR, CBCA ####[facility] ([id number])[address], [address] [place] [address]UUBGQKAH NEUTROPHIL3.3 X10E9/LNormal1.5-6.6[facility] [place] HospitalComment on above: Performed By: #### ANGLE PINR, CBCA ####[facility] ([id number])[address], [address] [place] [address] 33023Ibtvbppdv/100 WBC (Bld)1.0 %NormalProRegional Medical Centerca [place] HospitalComment on above:Performed By: #### ANGLE PINR, CBCA ####[facility] ([id number])[address], [address] [place] [address] 45[address]Zitvmvcrwip (Bld) [#/Vol]0.3 10*3/uLNormal0.0-0.4[facility] HospitalComment on above:Performed By: #### ANGLE PINR, CBCA ####[facility] ([id number])[address], [address] [place] [address] Eosinophils/100 WBC (Bld)6.1 %NormalProMedica [place] HospitalComment on above: Performed By: #### ANGLE PINR, CBCA ####[facility] ([id number])[address], [address] [place] [address]Irboonnenxs distribution width (RBC) [Ratio]21.9 %High11.5-15.0[facility] [place] HospitalComment on above: Performed By: #### ANGLE, PINR, CBCA ####[facility] ([id number])[address], [address] [place] [address]46[address]Vofpwpvkpf (Bld) [Volume fraction]23.8 %Enw59-13EdhOflrww [place] HospitalComment on above:Performed By: #### BMP, PINR, CBCA ####[facility] ([id number])[address], [address] [place] [address] 500[address]Xucznoyluv (Bld) [Mass/Vol]8.3 g/dLLow 13.0-17.0[facility] HospitalComment on above:Performed By: #### BMP, PINR, CBCA ####[facility] ([id number])[address], [address] [place] [address] 66[address]Aslyykmpxlj (Bld) [#/Vol]0.6 10*3/uLLow1.0-3.5[facility] [place] HospitalComment on above:Performed By: #### BMP, PINR, CBCA ####[facility] ([id number])[address], [address] [place] [address] 13927 Lymphocytes/100 WBC (Bld)14.2 %NormalProRegional Medical Centerca [place] HospitalComment on above: Performed By: #### BMP, PINR, CBCA ####[facility] ([id number])[address], [address] [place] [address] 63432VQU (RBC) [Entitic mass] 34.6 rgNnca42-80StzUjqzdz Ward HospitalComment on above:Performed By: #### BMP, PINR, CBCA ####[facility] ([id number])[address], [address] [place] [address] 48625VAIM (RBC) [Mass/Vol]34.9 g/cXWmkavd31-06JjwRpdjpn [facility] HospitalComment on above:Performed By: #### BMP, PINR, CBCA ####[facility] ([id number])[address], [address] [place] [address] 54950EVL (RBC) [Entitic vol]99 lIVznknq45-513GfgCtszbb [facility] HospitalComment on above: Performed By: #### ANGLE PINR, CBCA ####[facility] ([id number])[address], [address] [place] [address] 45932Hqginyupp (Bld) [#/Vol]0.2 10*3/uLNormal0-0.9[facility] HospitalComment on above:Performed By: #### BMP, PINR, CBCA ####[facility] ([id number])[address], [address] [place] [address] 60801Qictojkfg/100 WBC (Bld)4.8 %NormalProMedica Ward HospitalComment on above:Performed By: #### BMP, PINR, CBCA ####[facility] ([id number])[address], [address] [place] [address] 45292 Neutrophils/100 WBC (Bld)73.9 %NormalProMedica Ward HospitalComment on above: Performed By: #### ANGLE, PINR, CBCA ####[facility] ([id number])[address], [address] [place] [address] 92493Jtaygpch mean volume (Bld) [Entitic vol]10.1 fLNormal7-12[facility] HospitalComment on above: Performed By: #### BMP, PINR, CBCA ####[facility] ([id number])[address], [address] [place] [address] 96037Ryhesxmkx (Bld) [#/Vol]66 10*3/fCZve264-573LqoZqoztn [facility] HospitalComment on above:Performed By: #### BMP, PINR, CBCA ####[facility] ([id number])[address], [address] [place] [address] 28746RRL COUNT2.41 X10E12/LLow4.10-5.70[facility] HospitalComment on above:Performed By: #### ALKA BARBOUR CBCA ####[facility] ([id number])[address], [address] [place] [address] 18373EOL (Bld) [#/Vol]4.5 10*3/uLNormal4.0-11.0ProAkron Children'S HospitalComment on above: Performed By: #### ANGLE PINJesse, CBCA ####[facility] ([id number])[address], [address] [place] [address] 92468MHWBDENC BASOPHIL0.0 X10E9/LNormal0.0-0.2[facility] County Health CenterComment on above:Performed By: #### MARVA BARBOUR, , 2776-02 ####[facility] ([id number])[address], [address] [place] [address] 90300KSRWOQDJ NEUTROPHIL2.4 X10E9/LNormal1.5-6.6 ProMbullock county hospitala Fulton County Health CenterComment on above:Performed By: #### ANGLE CBCRachel, , 2776-02 ####[facility] ([id number])[address], [address] [place] [address] 57327Eylacexij/100 WBC (Bld)1.1 %NormalSt. Rita's Hospital Comment on above:Performed By: #### ANGLE CBCRachel, , 2776-02 ####[facility] ([id number])[address], [address] [address] Eosinophils (Bld) [#/Vol]0.3 10*3/uLNormal0.0-0.4[facility] Comment on above:Performed By: #### ANGLE CBCRachel, , 2776-02 ####[facility] ([id number])[address], [address] [address] Eosinophils/100 WBC (Bld)7.8 %NormalProMedica Ward HospitalComment on above: Performed By: #### ANGLE CBCRachel, , 2776-02 ####[facility] ([id number])[address], [address], [place] [address]Kvcqgpvtiih distribution width (RBC) [Ratio]21.2 %High11.5-15.0[facility] HospitalComment on above: Performed By: #### ANGLE CBCRachel, , 2776-02 ####[facility] ([id number])[address], [address] [place] [address] 98732Xonfqinjel (Bld) [Volume fraction]23.4 %Jdr12-13FyrBrwpcd Ward HospitalComment on above:Performed By: #### MARVA BARBOUR, , 2776-02 ####[facility] ([id number])[address] [address] [place] [address] 46861Syvvobqvmw (Bld) [Mass/Vol] 7.9 g/dLLow13.0-17.0[facility] HospitalComment on above:Performed By: #### ANGLE CBCRachel, , 2776-02 ####[facility] ([id number])[address] [address] [place] [address] 78277Wmdtqylftcl (Bld) [#/Vol]0.9 10*3/uLLow 1.0-3.5[facility] HospitalComment on above:Performed By: #### ANGLE CBCRachel, , 2776-02 ####[facility] ([id number])[address] [address], [place] [address]Qejdhpztkfc/100 WBC (Bld)22.2 %NormalProMedica Ward HospitalComment on above:Performed By: #### ANGLE CBCA, , 2776-02 ####[facility] ([id number])[address], [address] [place] [address] 07269HRC (RBC) [Entitic mass]34.6 djKkmv53-99SriUuvume Ward HospitalComment on above:Performed By: #### ANGLE, CBCA, , 2776-02 ####[facility] ([id number])[address], [address], [place] [address]ZWMZ (RBC) [Mass/Vol]33.6 g/aSWlwkxf70-15IseEovvpu [facility] HospitalComment on above: Performed By: #### ANGLE, CBCA, , 2776-02 ####[facility] ([id number])[address], [address] [place] [address] 88954WCN (RBC) [Entitic vol]103 mYWdzx84-806WzcSuhhal [facility] HospitalComment on above:Performed By: #### ANGLE, CBCA, , 2776-02 ####[facility] ([id number])[address], [address] [place] [address] 50218Ouokglqss (Bld) [#/Vol]0.3 10*3/uLNormal0-0.9 [facility] HospitalComment on above:Performed By: #### ANGLE, CBCA, , 2776-02 ####[facility] ([id number])[address], [address], [place] [address]Xrzacaexa/100 WBC (Bld)7.0 %NormalProMedica [facility] Comment on above:Performed By: #### ANGLE, CBCA, , 2776-02 ####[facility] ([id number])[address], [address] [place] [address] 07860 Neutrophils/100 WBC (Bld)61.9 %NormalProMedica Ward HospitalComment on above: Performed By: #### MARVA BARBOUR, , 2776-02 ####[facility] ([id number])[address], [address] [place] [address] 78834Muwdwnmh mean volume (Bld) [Entitic vol]9.8 fLNormal7-12[facility] HospitalComment on above:Performed By: #### MARVA BARBOUR, , 2776-02 ####[facility] ([id number])[address], [address] [place] [address] 61761Yqelxnqui (Bld) [#/Vol]91 10*3/nBPmt119-827VrxNuqndh [facility] HospitalComment on above:Performed By: #### MARVA BARBOUR, , 2776-02 ####[facility] ([id number])[address], [address] [place] [address] 26469VUS COUNT2.27 X10E12/LLow4.10-5.70Pro[facility] Centerca [facility] HospitalComment on above:Performed By: #### MARVA BARBOUR, , 2776-02 ####[facility] ([id number])[address], [address] [place] [address] 96560GYY (Bld) [#/Vol]3.9 10*3/uLLow4.0-11.0Pro[facility] Centerca [facility] HospitalComment on above:Performed By: #### MARVA BARBOUR, , 2776-02 ####[facility] ([id number])[address], [address] [place] [address] 32951Qcensis Glucometer (BldC) [Mass/Vol]on 40-72-6906Irceamp [Mass/Vol]101 mg/tFFpad89-82 ProMedicOhioHealth [facility]ville Health CenterGlucose [Mass/Vol]84 mg/xTWazufv69-78CvoBmoapp [facility] HospitalMAGNESIUMon 62-94-2175Xvhfkatdm [Mass/Vol]1.6 mg/dLLow1.8-2.6[facility] HospitalComment on above:Performed By: #### MARVA BARBOUR, 33559-7, 2777-1 ####[facility] ([id number])[address], [address] [place] [address] 81780PSPXJFPWXGcc 22-86-0913Ioftovjwp [Mass/Vol]2.3 mg/dLLow2.4-4.9[facility] HospitalComment on above:Performed By: #### MARVA BARBOUR, 24029-5, 2777-1 ####[facility] ([id number])[address], [address] [place] [address] 56793EQFOZBA AND INRon 13-89-7995TZI Coag (PPP) [Relative time]1.2 {INR}High 0.8-1.1PPeoples Hospital HospitalComment on above:Performed By: #### ALKA BARBOUR CBCA ####[facility] ([id number])[address], [address] [place] [address] 68446SY Coag (PPP) [Time]13.9 sHigh9.8-13.2PPeoples Hospital HospitalComment on above:Performed By: #### ALKA BARBOUR, CBCA ####[facility] ([id number])[address], [address] [place] [address] 039[address]SMOQ GENERIC ORDERon 05-20-6238QLJV [id number] IMM PLT IMMATURE PLT FRACTIONNormalProCommunity Memorial Hospital HospitalTEST RESULTSEE NOTENormalProRegional Medical Centerca [place] HospitalComment on above:Result Comment: NOTETest name Result Flag Units RefIntvl Immature Platelet Fraction 5.3 % 1.0-11.4Performed At: H[facility] LAB [facility] [place], [place] [address]Ce[place] Director: GINNA UMANZOR Number: [id number] METABOLIC PANLon 89-56-6921Fhlvj gap [Moles/Vol]7 mmol/LNormal5-15ProAkron Children'S HospitalComment on above: Performed By: #### 14563-2, 46738-2, 16342-2, BMP, 2284-8, 63186-1, 68004-5, 2777-1, 2276-4, 2532-0, PINR, 4679-7, FEPR, CBCA, 1987-06, 2131-10, 07168-7 ####[facility] ([id number])[address], [address], [place] [address]Sdkrhee [Mass/Vol]8.1 mg/dLLow8.5-10.5PMercy Health St. Anne HospitalComment on above:Performed By: #### 10125-7, 26356-8, 40562-6, BMP, 2284-8, 35509-3, 76118- 9, 2777-1, 2276-4, 2532-0, PINR, 4679-7, FEPR, CBCA, 1987-06, 2131-10, 23746-6 ####[facility] ([id number])[address], [address], [place] [address]Vvekejar [Moles/Vol]113 mmol/GMhjp13-267EhvNfhqysAkron Children'S HospitalComment on above:Performed By: #### 03690-4, 43788-6, 12410-9, BMP, 2284-8, 79737-8, 84669-8, 2777-1, 2276-4, 2532-0, PINR, 4679-7, FEPR, CBCA, 1987-06, 2131-10, 28328-4 ####[facility] ([id number])[address], [address], [place] [address]YW2 [Moles/Vol]20 mmol/ZGwb80-23ZybPxajazMercy Health St. [facility] Hospital Comment on above:Performed By: #### 98354-7, 85367-8, 23247-3, BMP, 2284-8, 18477-1, 13251-1, 2777-1, 2276-4, 2532-0, PINR, 4679-7, FEPR, CBCA, 1987-06, 2131-10, ####[facility] ([id number])[address], [place] [address]Phgminxkop [Mass/Vol]1.47 mg/dLHigh0.60-1.30ProAkron Children'S HospitalComment on above:Result Comment: METHOD TRACEABLE TO IDMS STANDARDPerformed By: #### 66548-0, 40244-8, 37279-3, BMP, 2284-8, 80295-0, 41078-7, 2777-1, 2276-4, 2532-0, PINR, 4679-7, FEPR, CBCA, 1987-06, 2131-10, ####[facility] ([id number])[address], [address], [place] [address]JGC/1.73 sq M.predicted among non-blacks MDRD (S/P/Bld) [Vol rate/Area]49 mL/min/{1.73_m2}Low>59ProAkron Children'S HospitalComment on above: Result Comment: Reported eGFR is based on theCKD-EPI 2020 equation that doesnot use a race coefficient.Performed By: #### 79338-1, 43079-8, 71084-5, BMP, 2284- 8, 06936-1, 85777-7, 2777-1, 2276-4, 2532-0, PINR, 4679-7, FEPR, CBCA, 1987-06, 2131-10, ####[facility] ([id number])[address], [address], [place] [address]Uvnwfcw [Mass/Vol]105 mg/qYTbrm69-10ZduLzbdtwAkron Children'S HospitalComment on above:Performed By: #### 88195-1, 88343-9, 76645-1, BMP, 2284-8, 46624-3, 28733-5, 2777-1, 2276-4, 2532-0, PINR, 4679-7, FEPR, CBCA, 1987-06, 2131-10, 44522-8 ####[facility] ([id number])[address], [place] [address]Xxdlcfvqh [Moles/Vol]4.4 mmol/LNormal3.5-5.0 [facility] CenterComment on above:Performed By: #### 39325-9, 28591-2, 16331-4, BMP, 2284-8, 61812-4, 28179-8, 7-1, 2276-4, 2532-0, PINR, 4679-7, FEPR, CBCA, 1987-06, 2131-10, ####[facility] ([id number])[address], [place] [address]Evlfsk [Moles/Vol]140 mmol/WOdttrz823-260QmgDzeouo [place] HospitalComment on above:Performed By: #### 72611-1, 41512-0, 51039-4, BMP, 2284-8, 07560-1, 38382-4, 2777-1, 2276-4, 2532-0, PINR, 4679-7, FEPR, CBCA, 1987-06, 2131-10, 20219-4 ####[facility] ([id number])[address], [place] [address]Fvkk nitrogen [Mass/Vol]28 mg/dLHigh5-27ProMediMadison HealthComment on above:Performed By: #### 04387-5, 81455-8, 02004-1, BMP, 2284-8, 14906-9, 83660-3, 2777-1, 2276- 4, 2532-0, PINR, 4679-7, FEPR, CBCA, 1987-06, 2131-10, 93804-0 ####[facility] ([id number])[address], [place] [address]IDP AND AUTO DIFFon 67-65-7652TRUZNKCO BASOPHIL0.0 X10E9/LNormal0.0-0.2Pro[facility] Health CenterComment on above:Performed By: #### 52627-0, 58029-5, 64850-7, BMP, 2284-8, 10009-7, 32341-3, 2777-1, 2276-4, 2532-0, PINR, 4679-7, FEPR, CBCA, 1987-06, 2131-10, 98182-6 ####[facility] ([id number])[address], [address] [place] [address]PEPAYUDE NEUTROPHIL2.5 X10E9/LNormal1.5-6.6 [facility] CenterComment on above:Performed By: #### 98218-9, 63536-3, 76888-0, BMP, 2284-8, 94804-0, 13456-9, 2777-1, 2276-4, 2532-0, PINR, 4679-7, FEPR, CBCA, 1987-06, 2131-10, 17605-4 ####[facility] ([id number])[address], [address] [place] [address] 89794Hvxiswqej/100 WBC (Bld)1.1 %NormalProMedica Fulton County Health CenterComment on above:Performed By: #### 59485-8, 99393-2, 24502-5, BMP, 2284-8, 51344-6, 97364-9, 2777-1, 2276-4, 2532-0, PINR, 4679-7, FEPR, CBCA, 1987-06, 2131-10, 90636-0 ####[facility] ([id number])[address], [address] [place] [address] 04287Uuiteszmnyl (Bld) [#/Vol] 0.3 10*3/uLNormal0.0-0.4St. Rita's HospitalComment on above:Performed By: #### 26523-2, 80600-8, 98617-4, BMP, 2284-8, 03424-6, 34292-1, 2777-1, 2276-4, 2532-0, PINR, 4679-7, FEPR, CBCA, 1987-06, 2131-10, 15559-6 ####[facility] ([id number])[address], [address] [place] [address] 43624Yhbeuewvcqq/100 WBC (Bld)7.1 %NormalProAkron Children'S HospitalComment on above:Performed By: #### 28375-6, 65495-2, 19043-5, BMP, 2284-8, 87691-2, 67569-2, 2777-1, 2276-4, 2532-0, PINR, 4679-7, FEPR, CBCA, 1987-06, 2131-10, ####[facility] ([id number])[address], [address] [place] [address] 39395Oavgibfstmt distribution width (RBC) [Ratio]21.9 %High11.5-15.0[facility] Comment on above:Performed By: #### 99391-9, 05759-0, 77580-6, BMP, 2284-8, 05867-5, 88999-7, 2777-1, 2276-4, 2532-0, PINR, 4679-7, FEPR, CBCA, 1987-06, 2131-10, ####[facility] ([id number])[address], [address] [place] [address] 74716Nxhbczimiw (Bld) [Volume fraction]23.3 %Ymi52-38 ProMCleveland Clinic Euclid Hospital HospitalComment on above:Performed By: #### 61546-0, 67637-8, 22850-2, BMP, 2284-8, 02122-5, 13296-6, 2777-1, 2276-4, 2532-0, PINR, 4679-7, FEPR, CBCA, 1987-06, 2131-10, 25737-2 ####[facility] ([id number])[address], [address] [place] [address] [address] (Bld) [Mass/Vol] 7.8 g/dLLow13.0-17.0ProAkron Children'S HospitalComment on above:Performed By: #### 19278-9, 50432-8, 55485-4, BMP, 2284-8, 75921-3, 15482-8, 2777-1, 2276-4, 2532-0, PINR, 4679-7, FEPR, CBCA, 1987-06, 2131-10, ####[facility] ([id number])[address], [address] [place] [address] 72545Neerqxjjnjp (Bld) [#/Vol]0.9 10*3/uLLow1.0-3.5PThe NeuroMedical Centerica Fulton County Health CenterComment on above: Performed By: #### 50615-0, 03918-2, 85088-2, BMP, 2284-8, 79709-3, 04909-2, 2777-1, 2276-4, 2532-0, PINR, 4679-7, FEPR, CBCA, 1987-06, 2131-10, 49933-0 ####[facility] ([id number])[address], [address] [place] [address] 75609Anlmgwwqprd/100 WBC (Bld)22.3 %NormalProAkron Children'S HospitalComment on above:Performed By: #### 31173-6, 98849-2, 13792-9, BMP, 2284-8, 10705-8, 92355- 9, 2777-1, 2276-4, 2532-0, PINR, 4679-7, FEPR, CBCA, 1987-06, 9, 94429-8 ####[facility] ([id number])[address], [address] [place], [place] [address]MCH (RBC) [Entitic mass]34.6 hpMydj21-49YfqMoretoAkron Children'S HospitalComment on above:Performed By: #### 99327-1, 66603-3, 42342-7, BMP, 2284-8, 06238-3, 76577-0, 2777-1, 2276-4, 2532-0, PINR, 4679-7, FEPR, CBCA, 1987-06, 2131-10, 60998-4 ####[facility] ([id number])[address], [address] [place], [place] [address]MCHC (RBC) [Mass/Vol]33.6 g/bHWfzmzx79-01UztKpkaok [place] HospitalComment on above:Performed By: #### 26400-2, 98250-6, 82157-1, BMP, 2284-8, 55171-6, 71307-1, 2777-1, 2276-4, 2532-0, PINR, 4679-7, FEPR, CBCA, 1987-06, 2131-10, 53919-3 ####[facility] ([id number])[address], [address] [place], [place] [address]MCV (RBC) [Entitic vol]103 yFPzsk97-166 [facility] HospitalComment on above:Performed By: #### 49596-3, 76830-4, 71215-3, BMP, 2284-8, 26732-2, 07228-2, 2777-1, 2276-4, 2532-0, PINR, 4679-7, FEPR, CBCA, 1987-06, 2131-10, 95231-3 ####[facility] ([id number])[address], [address], [place] [address]Obnoovakt (Bld) [#/Vol]0.3 10*3/uLNormal0-0.9ProRegional Medical Centerca [facility]nesville HospitalComment on above:Performed By: #### 63247-8, 46432-0, 60864-3, BMP, 2284-8, 73236-7, 12696-2, 2777-1, 2276-4, 2532-0, PINR, 4679-7, FEPR, CBCA, 1987-06, 2131-10, 33776-3 ####[facility] ([id number])[address], [address] [place] [address] 29620Acyopwrew/100 WBC (Bld)6.7 %NormalProCommunity Memorial Hospital HospitalComment on above:Performed By: #### 74937-0, 61122-0, 12963-9, BMP, 2284-8, 81027-8, 50262-0, 2777-1, 2276-4, 2532-0, PINR, 4679-7, FEPR, CBCA, 1987-06, 2131-10, 64422-4 ####[facility] ([id number])[address], [address] [place] [address] 94688Kvrfacddwkq/100 WBC (Bld)62.8 %NormalProCommunity Memorial Hospital HospitalComment on above:Performed By: #### 02421-0, 82108-4, 89516-7, BMP, 2284-8, 68300-3, 10272-1, 2777-1, 2276-4, 2532-0, PINR, 4679-7, FEPR, CBCA, 1987-06, 2131-10, 55521-6 ####[facility] ([id number])[address], [address] [place] [address] 29476Uyucrqlp mean volume (Bld) [Entitic vol]10.3 fLNormal7-12ProMedica [facility] HospitalComment on above:Performed By: #### 01267-0, 66173-5, 71960-1, BMP, 2284-8, 83088-3, 98563- 9, 2777-1, 2276-4, 2532-0, PINR, 4679-7, FEPR, CBCA, 1987-06, 2131-10, 05133-1 ####[facility] ([id number])[address], [address] [place] [address] 86753Kxwsbcqcq (Bld) [#/Vol]85 10*3/wJJye083-227PgzMgnwigAkron Children'S HospitalComment on above:Performed By: #### 72851-7, 38404-0, 13384-7, BMP, 2284-8, 03788-4, 52854-1, 2777-1, 2276-4, 2532-0, PINR, 4679-7, FEPR, CBCA, 1987-06, 2131-10, 64721-2 ####[facility] ([id number])[address], [address] [place] [address] 41488CCS COUNT2.27 X10E12/LLow4.10-5.70[facility] Comment on above:Performed By: #### 81361-3, 27439-1, 46104-6, BMP, 2284-8, 93461-6, 50030-9, 2777-1, 2276-4, 2532-0, PINR, 4679-7, FEPR, CBCA, 1987-06, 2131-10, 50276-5 ####[facility] ([id number])[address], [address] [place] [address] 40186BME (Bld) [#/Vol]4.0 10*3/uLNormal4.0-11.0St. [facility]'s HospitalComment on above:Performed By: #### 97469-7, 54926-3, 22784-2, BMP, 2284-8, 49498-5, 99293-0, 2777-1, 2276-4, 2532-0, PINR, 4679-7, FEPR, CBCA, 1987-06, 2131-10, 35720-0 ####[facility] ([id number])[address], [address] [place] [address] 79125VUQ [Mass/Vol]on 4C REACTIVE PROTEIN1.2 mg/dLHigh0.000-0.744PMercy Health St. Anne HospitalComment on above: Performed By: #### 25052-5, 45184-7, 82700-8, BMP, 2284-8, 23099-4, 32971-7, 2777-1, 2276-4, 2532-0, PINR, 4679-7, FEPR, CBCA, 1987-06, 2131-10, 62084-4 ####[facility] ([id number])[address], [address] [place] [address] 13703ZDY Photometric method (Bld) [Velocity]on 06-55-0741MQQ, ERYTHROCYTE SEDIMENTATION RATE38 mm/hHigh0-20ProAkron Children'S HospitalComment on above: Performed By: #### 45974-2, 39176-4, 00055-3, BMP, 2284-8, 20191-7, 77606-9, 2777-1, 2276-4, 2532-0, PINR, 4679-7, FEPR, CBCA, 1987-06, 2131-10, 83282-4 ####[facility] ([id number])[address], [address] [place] [address] 94840XQATVERTvj 02-18-9992Rpapykhu [Mass/Vol]351 ng/hIFtky28-307OvyFnytiuSt. Rita's HospitalComment on above:Performed By: #### 86349-3, 75875-0, 71040-5, BMP, 2284-8, 21106-5, 26386-2, 2777-1, 2276-4, 2532-0, PINR, 4679-7, FEPR, CBCA, 1987-06, 2131-10, 43011-0 ####[facility] ([id number])[address] [place] [address], [address] [place] [address] 51618Xkmmcz D-dimer DDU (PPP) [Mass/Vol]on 11-24-2023 PKIHV834 ng/mL DDUHigh<255St. Rita's HospitalComment on above: Result Comment: Results >=255ng/mL DDU: Results may beindicative of the presence of VTE. The useof the Wells score and further diagnostictests should be considered. Elevated D-Dimerlevels can alsobe associated with DIC,neoplasm, , trauma and liver disease.Elevated levels of rheumatoid factor may leadto an overestimation of the D-Dimer level.Performed By: #### 56241-7, 27521- 7, 22482-2, BMP, 2284-8, 94121-0, 70345-2, 2777-1, 2276-4, 2532-0, PINR, 4679-7, FEPR, CBCA, 1987-06, 2131-10, 52425-2 ####[facility] ([id number])[address] [place] [address] 71357Dhjfcspmxx Coagulation.derived (PPP) [Mass/Vol]on 54-86-2967RYBDVHVZWU832 mg/dLNormal 190-480ProAkron Children'S HospitalComment on above:Performed By: #### 20031-0, 26226-4, 03854-6, BMP, 2284-8, 64907-3, 21044-8, 2777-1, 2276-4, 2532-0, PINR, 4679-7, FEPR, CBCA, 1987-06, 2131-10, 86288-9 ####[facility] ([id number])[address] [place] [address] 47182Qsqxsu [Mass/Vol]on 77-55-1092VTXUZ ACID10.7 ng/mLNormal>5.8ProAkron Children'S HospitalComment on above:Result Comment: NEW REFERENCE RANGEPerformed By: #### 55225-0, 55857-5, 87665-5, BMP, 2284-8, 32269-3, 73933-4, 2777-1, 2276-4, 2532-0, PINR, 4679-7, FEPR, CBCA, 1987-06, 2131-10, ####[facility] ([id number])[address] [facility], [address] [place] [address] 46504Dkbakje Glucometer (BldC) [Mass/Vol]on 98-56-7451Npwioqm [Mass/Vol]100 mg/xDAbsq28-00NfjCsghgoAkron Children'S HospitalGlucose [Mass/Vol]101 mg/gFAtbz28-39VnrEljbpgAkron Children'S HospitalGlucose [Mass/Vol]96 mg/hPXrcifi56-99RuuEruldhSt. Rita's HospitalHaptoglobin Nephelometry [Mass/Vol]on 62-71-0888QMSNMKEAGUP306 mg/kDUisuqb48-552NfbImelki [facility] [facility] Comment on above:Performed By: #### 11483-1, 70225-4, 27581-2, BMP, 2284-8, 25672-2, 39045-4, 2777-1, 2276-4, 2532-0, PINR, 4679-7, FEPR, CBCA, 1987-06, 2131-10, ####[facility] ([id number])[address], [address] [place] [address] 46892KWHK PROFILEon 40-22-2129Bhcv [Mass/Vol]103 ug/dLNormal 50-212St. Rita's HospitalComment on above:Performed By: #### 48217-1, 78054-2, 28860-6, BMP, 2284-8, 70677-8, 60834-9, 2777-1, 2276-4, 2532-0, PINR, 4679-7, FEPR, CBCA, 1987-06, 2131-10, ####[facility] ([id number])[address] [facility], [address] [place] [address] 95364KMXC FEWCUDR912 ug/dLNormal 250-425ProMedica Ward HospitalComment on above:Performed By: #### 41025-9, 35801-5, 42319-3, BMP, 2284-8, 81285-6, 91920-9, 2777-1, 2276-4, 2532-0, PINR, 4679-7, FEPR, CBCA, 1987-06, 2131-10, ####[facility] ([id number])[address] [place] [address], [address] [place] [address] 36885SRFA JRZBZTWBUG82 % UZKFDLIFGNEmebme80-81HobKxoqll [place] HospitalComment on above:Performed By: #### 14801-3, 11552-5, 39320-2, BMP, 2284-8, 91664-5, 32042-9, 2777-1, 2276-4, 2532-0, PINR, 4679-7, FEPR, CBCA, 1987-06, 2131-10, ####[facility] ([id number])[address] [place] [address], [address] [place] [address] 95427OFD [Catalytic activity/Vol]on 19-74-9339RNM287 U/NZurivd268-742EzjOalmxmSt. [facility]'s Hospital Comment on above:Performed By: #### 92525-2, 51619-0, 15368-8, BMP, 2284-8, 75386-4, 54052-4, 2777-1, 2276-4, 2532-0, PINR, 4679-7, FEPR, CBCA, 1987-06, 2131-10, ####[facility] ([id number])[address] [place] [address], [address] [place] [address] 39056Yanajrabjg comment Erik (Report)on 78-68-5275PYRHTWRR LAB TESTSent to reference labNormalSt. Rita's HospitalMAGNESIUMon 53-62-1058Jdspvjqjw [Mass/Vol]1.8 mg/dLNormal1.8-2.6[facility] Comment on above:Performed By: #### 62971-1, 79700-4, 08311-3, BMP, 2284-8, 65448-6, 19077-7, 2777-1, 2276-4, 2532-0, PINR, 4679-7, FEPR, CBCA, 1987-06, 2131-10, ####[facility] ([id number])[address], [address] [place] [address] 75152Lrtcnwxry Ionized ISE (Bld) [Moles/Vol]on 11-24-2023 Magnesium [Moles/Vol]0.67 mmol/LNormal0.45-0.74ProRegional Medical Centerca Paynesville HospitalComment on above:Result Comment: NEW REFERENCE RANGEPerformed By: #### 64472-7 ####[facility] ([id number])[address], [address] [place] [address] 59831BXZATYXIXCoj 55-04-7503Peonvectm [Mass/Vol]3.5 mg/dLNormal2.4-4.9Pro[facility] HospitalComment on above:Performed By: #### 2777-1 ####[facility] ([id number])[address], [address] [place] [address] 40680Oopejbhqf [Mass/Vol]2.0 mg/dLLow2.4-4.9ProAkron Children'S HospitalComment on above:Performed By: #### 17623-0, 54037-8, 48927-0, BMP, 2284-8, 63942-8, 67095-1, 2777-1, 2276-4, 2532-0, PINR, 4679-7, FEPR, CBCA, 1987-06, 2131-10, ####[facility] ([id number])[address] [place] [address] 04746 PROTIME AND INRon 20-18-9422GBI Coag (PPP) [Relative time]1.0 {INR}Normal0.8-1.1 [facility] HospitalComment on above:Performed By: #### 85819-5, 18221-5, 35166-0, BMP, 2284-8, 77938-2, 59874-5, 2777-1, 2276-4, 2532-0, PINR, 4679-7, FEPR, CBCA, 1987-06, 2131-10, ####[facility] ([id number])[address], [address] [place] [address] 14299PX Coag (PPP) [Time]11.8 s Normal9.8-13.2PMercy Health St. Anne HospitalComment on above:Performed By: #### 02793-4, 43386-7, 09167-7, BMP, 2283-8, 37158-8, 24967-8, 7-1, 2276-4, 2532-0, PINR, 4679-7, FEPR, CBCA, 1987-06, 2131-10, ####[facility] ([id number])[address] [place] [address] 28901 Reticulocytes/100 RBC (Bld)on 33-03-8615WHGRTAKAVPDB COUNT0.5 %Normal0.4-2.2 [facility] HospitalComment on above:Performed By: #### 12718-4, 74976-8, 46198-2, BMP, 2283-8, 83758-7, 96630-7, 2777-1, 2276-4, 2532-0, PINR, 4679-7, FEPR, CBCA, 1987-06, 2131-10, ####[facility] ([id number])[address] [place] [address] 13102DYEGROU B12on 11-24-2023 Cobalamin (Vitamin B12) [Mass/Vol]264 pg/hHMqvlac176-597HvvGrdrww [place] HospitalComment on above:Performed By: #### 79072-2, 58154-2, 57697-5, BMP, 2284-8, 65503-3, 83470-6, 2777-1, 2276-4, 2532-0, PINR, 4679-7, FEPR, CBCA, 1987-06, 2131-10, ####[facility] ([id number])[address] [place] [address] 33547yOBS Coag (PPP) [Time]on 69-86-0027cVDV Coag (Bld) [Time]30 sHnvtjm24-81MytRlaqwg [facility]ville HospitalComment on above:Performed By: #### 25055-7, 53394-4, 15486-3, BMP, 2284-8, 44930-4, 76192-4, 7-1, 6- 4, 2532-0, PINR, 4679-7, FEPR, CBCA, 1987-06, 2131-10, ####[facility] ([id number])[address], [address] [place] [address] 09034YLFQD METABOLIC PANLon 34-04-0654Eflug gap [Moles/Vol]10 mmol/LNormal5-15Pro[facility] HospitalComment on above:Performed By: #### ANGLE, 86991-5, CBCA, 277-1 ####[facility] ([id number])[address], [address] [place] [address] 49167Vnvacwb [Mass/Vol]7.6 mg/dLLow8.5-10.5ProMedica [facility] HospitalComment on above:Performed By: #### BMP, 37605-3, CBCA, 2777-1 ####[facility] ([id number])[address], [address] [place] [address] 83805Ffuzfnho [Moles/Vol] 110 mmol/IFosj59-171QzxPzaxak [place] HospitalComment on above:Performed By: #### ANGLE, 12649-3, CBCA, 2777-1 ####[facility] ([id number])[address], [address], [place] [address]NG7 [Moles/Vol]19 mmol/TAuv30-38HgaFpxnykMercy Health St. Anne HospitalComment on above:Performed By: #### ANGLE, , MARVA, 2777-1 ####[facility] ([id number])[address], [address], [place] [address]Zeccurbkpi [Mass/Vol]2.32 mg/dLHigh0.60-1.30[facility] Comment on above:Result Comment: METHOD TRACEABLE TO IDMS STANDARDPerformed By: #### ANGLE, , MARVA, 2776-02 ####[facility] ([id number])[address] [address], [place] [address]ALI/1.73 sq M.predicted among non-blacks MDRD (S/P/Bld) [Vol rate/Area]29 mL/min/{1.73_m2}Low>59 [facility] HospitalComment on above:Result Comment: Reported eGFR is based on theCKD-EPI 2020 equation that doesnot use a race coefficient.Performed By: #### ANGLE, , MARVA, 277-1 ####[facility] ([id number])[address] [address] [place] [address] 78365Crdgcxh [Mass/Vol]116 mg/dL Sfvr32-21VjeWlxeaqAkron Children'S HospitalComment on above:Performed By: #### ANGLE, , MARVA, 2777- ####[facility] ([id number])[address], [address], [place] [address]Kkkhthrqh [Moles/Vol]3.8 mmol/LNormal3.5-5.0 [facility] HospitalComment on above:Performed By: #### ANGLE, , MARVA, 2777- ####[facility] ([id number])[address] [address] [place] [address] 49466Czfltd [Moles/Vol]139 mmol/PErzsxw678-582KoeGlgept [facility]ville HospitalComment on above:Performed By: #### ANGLE, , CBCA, 2776- ####[facility] ([id number])[address], [address] [place] [address] 46005Mxym nitrogen [Mass/Vol]47 mg/dLHigh5-27ProRegional Medical Centerca [facility] HospitalComment on above:Performed By: #### ANGLE, , CBCA, 2776- ####[facility] ([id number])[address], [address] [place] [address] 92276HVP AND AUTO DIFFon 69-38-3032ZTVZZICU BASOPHIL0.1 X10E9/LNormal0.0-0.2ProMedica [facility] HospitalComment on above:Performed By: #### ANGLE, , CBCA, 2776-02 ####[facility] ([id number])[address], [address] [place] [address] 09982ETJDHRCL NEUTROPHIL3.8 X10E9/LNormal1.5-6.6Pro[facility] Hospital Comment on above:Performed By: #### ANGLE, , CBCA, 2776-02 ####[facility] ([id number])[address], [address] [place] [address] 29847 Basophils/100 WBC (Bld)1.9 %NormalProCommunity Memorial Hospital HospitalComment on above: Performed By: #### ANGLE, , CBCA, 2776- ####[facility] ([id number])[address], [address] [place] [address] 90569Vrqyylxxhre (Bld) [#/Vol] 0.2 10*3/uLNormal0.0-0.4ProRegional Medical Centerca [facility] HospitalComment on above:Performed By: #### ANGLE, , CBCA, 2776-02 ####[facility] ([id number])[address], [address], [place] [address]Prqdxnnhnuf/100 WBC (Bld) 3.3 %NormalProCommunity Memorial Hospital HospitalComment on above:Performed By: #### ANGLE, , CBCA, 2776- ####[facility] ([id number])[address], [place] [address]Ojygmlovyov distribution width (RBC) [Ratio]21.4 %High11.5-15.0[facility] HospitalComment on above:Performed By: #### ANGLE, , CBCA, 2776-02 ####[facility] ([id number])[address], [place] [address]Osftpfgpgy (Bld) [Volume fraction]24.4 %Myy59-28 [facility] HospitalComment on above:Performed By: #### ANGLE, , CBCA, 2776-02 ####[facility] ([id number])[address], [address], [place] [address]Xfmtvuodgn (Bld) [Mass/Vol]8.3 g/dLLow13.0-17.0ProAkron Children'S HospitalComment on above:Performed By: #### ANGLE, , CBCA, 2776-02 ####[facility] ([id number])[address], [address], [place] [address]Sjqhqtzobjq (Bld) [#/Vol]1.0 10*3/uLNormal1.0-3.5[facility] Comment on above:Performed By: #### ANGLE, , CBCA, 2776- ####[facility] ([id number])[address], [address] [place] [address] Lymphocytes/100 WBC (Bld)19.1 %NormalProMedica Paynesville HospitalComment on above: Performed By: #### ANGLE, 97892-0, CBCA, 2776- ####[facility] ([id number])[address], [address] [place] [address]LTP (RBC) [Entitic mass] 34.4 riLxzb73-62UtgJslfyz Ward HospitalComment on above:Performed By: #### ANGLE, 20370-7, CBCA, 2776- ####[facility] ([id number])[address], [address] [place] [address]UPBP (RBC) [Mass/Vol]34.2 g/oOLkozqr72-02 [facility] HospitalComment on above:Performed By: #### ANGLE, , CBCA, 2776- ####[facility] ([id number])[address], [address] [place] [address]BGS (RBC) [Entitic vol]101 xGEqkm35-313VtgJdsbsv [place] HospitalComment on above:Performed By: #### ANGLE, , CBCA, 2776-02 ####[facility] ([id number])[address] [address] [place] [address]Dutkcrsng (Bld) [#/Vol]0.3 10*3/uLNormal0-0.9[facility] Comment on above:Performed By: #### ANGLE, , CBCA, 2776- ####[facility] ([id number])[address] [address] [place] [address] Monocytes/100 WBC (Bld)6.2 %NormalProRegional Medical Centerca Ward HospitalComment on above: Performed By: #### ANGLE, 68726-0, CBCA, 2776- ####[facility] ([id number])[address], [address] [place] [address]Ectztdyhmiw/100 WBC (Bld) 69.5 %NormalProCommunity Memorial Hospital HospitalComment on above:Performed By: #### ANGLE, , CBCA, 2776- ####[facility] ([id number])[address], [address], [place] [address]Dfchhssu mean volume (Bld) [Entitic vol]10.7 fL Normal7-12[facility] HospitalComment on above:Performed By: #### ANGLE, , CBCA, 2776- ####[facility] ([id number])[address], [address] [place] [address]Twtrepgod (Bld) [#/Vol]90 10*3/aXXfe075-354 [facility] HospitalComment on above:Performed By: #### ANGLE, , CBCA, 2776- ####[facility] ([id number])[address], [address] [place] [address]YJA COUNT2.43 X10E12/LLow4.10-5.70[facility] Comment on above:Performed By: #### ANGLE, , CBCA, 2777-1 ####[facility] ([id number])[address], [address] [place] [address]GBN (Bld) [#/Vol]5.4 10*3/uLNormal4.0-11.0[facility] HospitalComment on above: Performed By: #### ANGLE, , CBCA, 2777- ####[facility] ([id number])[address], [address] [place] [address]Ahpobxg.ionized (Bld) [Mass/Vol]on 00-03-2569JAMUBSH CALCIUM4.5 mg/dLNormal4.5-5.3[facility] HospitalComment on above:Performed By: #### 63175-6 ####[facility] ([id number])[address], [address], [place] [address]CIFMALB CALCIUM4.5 mg/dLNormal4.5-5.3[facility] HospitalComment on above:Performed By: #### 50326-9 ####[facility] ([id number])[address], [address], [place] [address]Mykeffd Glucometer (BldC) [Mass/Vol]on 82-91-8085Zsarwjo [Mass/Vol]119 mg/wWJsbt85-71HvjVmqkkt [facility] HospitalGlucose [Mass/Vol]100 mg/dL Dzav34-30BbnFhkglx [facility] HospitalGlucose [Mass/Vol]88 mg/tWJsneol26-92BcwGllkus [facility] HospitalMAGNESIUMon 58-86-3330Lqgxsezsz [Mass/Vol]2.0 mg/dLNormal1.8-2.6 [facility] HospitalComment on above:Performed By: #### ANGLE, 73271-7, CBCA, 2777-1 ####[facility] ([id number])[address], [place] [address]ERFMTGBKAYtd 19-26-9048Wjtvgsrro [Mass/Vol]2.6 mg/dLNormal 2.4-4.9[facility] HospitalComment on above:Performed By: #### ANGLE, 44267- 9, CBCA, 2777-1 ####[facility] ([id number])[address], [place] [address]WPAGMGKOPln 44-84-2544Hokptydlq [Moles/Vol]4.5 mmol/L Normal3.5-5.0[facility] HospitalComment on above:Performed By: #### 2823-3 ####[facility] ([id number])[address], [address], [place] [address]QYQZO METABOLIC PANLon 31-42-7550Vtkju gap [Moles/Vol]19 mmol/LHigh5-15 [facility] HospitalComment on above:Performed By: #### MARVA BARBOUR, 2777-1, 18373-9, ####[facility] ([id number])[address], [address], [place] [address]Qgonlsg [Mass/Vol]7.5 mg/dLLow8.5-10.5[facility] HospitalComment on above:Performed By: #### MARVA BARBOUR, 2777-1, 31279-2, ####[facility] ([id number])[address], [address], [place] [address]Ugpgwcmo [Moles/Vol]102 mmol/ZXunbll41-657TfpJzcyfn [place] HospitalComment on above:Performed By: #### MARVA BARBOUR, 2777-1, 15503-2, ####[facility] ([id number])[address], [address], [place] [address]TB6 [Moles/Vol]15 mmol/DBpy24-53LjwLpiyii [place] HospitalComment on above:Performed By: #### MARVA BARBOUR, 2777-1, 99678-3, ####[facility] ([id number])[address] [address], [place] [address]Bxwbsoejov [Mass/Vol]3.50 mg/dLHigh0.60-1.30Pro[facility]ica [facility]nesville HospitalComment on above:Result Comment: METHOD TRACEABLE TO IDMS STANDARDPerformed By: #### MARVA BARBOUR, 2777-1, 88456-5, ####[facility] ([id number])[address], [address], [place] [address]BTB/1.73 sq M.predicted among non-blacks MDRD (S/P/Bld) [Vol rate/Area]17 mL/min/{1.73_m2}Low>59ProMedica Paynesville HospitalComment on above: Result Comment: Reported eGFR is based on theCKD-EPI 2020 equation that doesnot use a race coefficient.Performed By: #### MARVA BARBOUR, 2777-1, 83822-8, ####[facility] ([id number])[address], [address], [place] [address]Ixxrvsa [Mass/Vol]112 mg/nBSrsq45-54LuwHkivvq [place] HospitalComment on above:Performed By: #### MARVA BAROBUR, 2777-1, 29620-0, ####[facility] ([id number])[address] [address], [place] [address]Dbbnlecpb [Moles/Vol]3.6 mmol/LNormal3.5-5.0ProRegional Medical Centerca [place]ville HospitalComment on above: Result Comment: SPECIMEN HEMOLYZED, RESULTS INCREASEDMODERATELY HEMOLYZED Performed By: #### MARVA BARBOUR, 2777-1, 98434-2, ####[facility] ([id number])[address] [address], [place] [address]Ztrbve [Moles/Vol]136 mmol/ONwexum792-921ZfkJospfc [place] HospitalComment on above: Performed By: #### MARVA BARBOUR, 2777-1, 91251-7, ####[facility] ([id number])[address] [address], [place] [address]Usor nitrogen [Mass/Vol]65 mg/dLHigh5-27Pro[facility] HospitalComment on above:Performed By: #### MARVA BARBOUR, 2777-1, 34627-8, ####[facility] ([id number])[address], [address], [place] [address]KRDST CULTUREon 11-22-2023 Bacteria identified Aer cx Nom (Bld)SPECIMEN NOTES RAN ASSAYED CONTROL TO IDENTIFY TREND CULTURE RESULTS NO GROWTH 5 DAYSNormalProMedica [facility] Norris Jr. Cancer HospitalComment on above:Performed By: #### 17850-4 ####[facility] ([id number])[address] [place] [address], [facility] [place], [place] [address]DRT AND AUTO DIFFon 08-27-5462PHQGTEKB BASOPHIL0.1 X10E9/LNormal0.0-0.2ProMedica Ward HospitalComment on above:Performed By: #### ANGLE, CBCA, 2777-1, 80923-9, 39603-0 ####[facility] ([id number])[address], [address] [place] [address]UXTAVQYH NEUTROPHIL5.5 X10E9/LNormal1.5-6.6ProMedica Ward HospitalComment on above:Performed By: #### ANGLE, CBCA, 2777-1, 60407-7, ####[facility] ([id number])[address], [address], [place] [address]Vqiqljxow/100 WBC (Bld)1.3 %NormalProMedica Paynesville HospitalComment on above:Performed By: #### ANGLE, CBCA, 2777-1, 06642-7, 15823-8 ####[facility] ([id number])[address], [address] [place] [address]Hbwyhumximv (Bld) [#/Vol]0.0 10*3/uLNormal 0.0-0.4ProMedica Ward HospitalComment on above:Performed By: #### BMP, CBCA, 2777-1, 41122-4, 29066-0 ####[facility] ([id number])[address], [address], [place] [address]Ypngweweinb/100 WBC (Bld)0.6 %Normal ProMedica Ward HospitalComment on above:Performed By: #### ANGLE, CBCA, 2777-1, 26146-7, ####[facility] ([id number])[address], [address] [place] [address]Vllzoetagmu distribution width (RBC) [Ratio]21.1 %High 11.5-15.0ProMedica Ward HospitalComment on above:Performed By: #### ANGLE, CBCA, 2777-1, 63151-4, ####[facility] ([id number])[address], [address], [place] [address]Vmrkmjuseh (Bld) [Volume fraction]28.7 %Low 39-49ProMedica Ward HospitalComment on above:Performed By: #### ANGLE, CBCA, 2777-1, 94369-7, ####[facility] ([id number])[address], [address], [place] [address]Mdxvctlpua (Bld) [Mass/Vol]9.7 g/dLLow 13.0-17.0Pro[facility]ville HospitalComment on above:Performed By: #### ANGLE, CBCA, 2777-1, 45937-8, ####[facility] ([id number])[address], [address] [place] [address]Brrqkpleijd (Bld) [#/Vol]1.9 10*3/uLNormal 1.0-3.5ProMedica Ward HospitalComment on above:Performed By: #### ANGLE, CBCA, 2777-1, 44390-8, ####[facility] ([id number])[address], [address] [place] [address] 268[address]Ftcfujobhbd/100 WBC (Bld)23.2 %Normal [facility] Ward HospitalComment on above:Performed By: #### ANGLE, CBCA, 2777-1, 77705-9, ####[facility] ([id number])[address], [address] [place] [address] 10440RXC (RBC) [Entitic mass]34.7 huXbjq08-40GfyPzovjf [place] HospitalComment on above:Performed By: #### BMP, CBCA, 2777-1, 96076-9, ####[facility] ([id number])[address], [address] [place] [address]VYZB (RBC) [Mass/Vol]33.7 g/tYMmphtp48-35MmiKoxwhj [place] HospitalComment on above:Performed By: #### ANGLE, CBCA, 2777-1, 32577-4, ####[facility] ([id number])[address], [address] [place] [address]LKR (RBC) [Entitic vol]103 wGAqin17-479AggDenkvy [place] HospitalComment on above:Performed By: #### ANGLE, CBCA, 2777-1, 54653-3, ####[facility] ([id number])[address], [address] [place] [address] 58[address]Llxhnuwpa (Bld) [#/Vol]0.5 10*3/uLNormal0-0.9ProReg[facility] Centerca [place] HospitalComment on above: Performed By: #### BMP, CBCA, 2777-1, 32749-7, ####[facility] ([id number])[address] [address] [place] [address] 200[address]Lpgrsdfbf/100 WBC (Bld)6.8 %NormalProRegional Medical Centerca [place]nesville HospitalComment on above:Performed By: #### BMP, CBCA, 2777-1, 07106-5, ####[facility] ([id number])[address], [address] [place] [address]Nyzcqzkweiu/100 WBC (Bld) 68.1 %NormalProMedica Ward HospitalComment on above:Performed By: #### ANGLE, CBCA, 2777-1, 11391-3, ####[facility] ([id number])[address], [address] [place] [address]Kamwjiky mean volume (Bld) [Entitic vol] 11.3 fLNormal7-12Pro[facility] HospitalComment on above:Performed By: #### ANGLE, CBCA, 2777-1, 77428-7, ####[facility] ([id number])[address], [address] [place] [address] 03898Xrklvfizc (Bld) [#/Vol]109 10*3/wFWwc515-470WoqCvqhia Ward HospitalComment on above:Performed By: #### ANGLE, CBCA, 2777-1, 39410-3, ####[facility] ([id number])[address], [address] [place] [address]KIC COUNT2.78 X10E12/LLow 4.10-5.70Pro[facility] HospitalComment on above:Performed By: #### ANGLE, CBCA, 2777-1, 94189-9, ####[facility] ([id number])[address], [address] [place] [address]UNF (Bld) [#/Vol]8.0 10*3/uLNormal4.0-11.0 Pro[facility] HospitalComment on above:Performed By: #### ANGLE, CBCA, 2777-1, 34442-8, ####[facility] ([id number])[address], [address] [place] [address] 21210IQ ABDOMEN AND PELVIS WO CONTon 08-63-7415KB ABDOMEN AND PELVIS WO CONTNormalProMedica Lagrange HospitalCT BRAIN WO CONTon 11-22-2023 CT BRAIN WO CONTNormalProMethodist Hospital AtascosaCT CERVICAL SPINE WO CONTon 36-84-2904WI CERVICAL SPINE WO CONTNormalProSelect Medical Specialty Hospital - Trumbull HospitalCT CHEST WO CONTon 03-09-3765UP CHEST WO CONTNormalProMethodist Hospital AtascosaCT LUMBAR SPINE WO CONTon 04-91-7002NU LUMBAR SPINE WO CONTNormalProMethodist Hospital AtascosaCT THORACIC SPINE WO CONTon 00-80-0493GF THORACIC SPINE WO CONTNormalProSelect Medical Specialty Hospital - Trumbull HospitalCalcium.ionized (Bld) [Mass/Vol]on 62-06-7088TUSUGJP CALCIUM4.3 mg/dLLow4.5-5.3PMercy Health St. Anne HospitalComment on above:Performed By: #### 81535-0, 66718-7 ####[facility] ([id number])[address] [facility], [address] [place] [address] 989[address]LIQVMSZ CALCIUM4.2 mg/dLLow4.5-5.3PMercy Health St. Anne HospitalComment on above:Performed By: #### 57018-4, 57503-5 ####[facility] ([id number])[address], [address] [place] [address] 00987Dtetphe Glucometer (BldC) [Mass/Vol]on 35-40-4340Gecazfx [Mass/Vol]162 mg/jGZftw15-25 ProMUniversity Hospitals Conneaut Medical CenterGlucose [Mass/Vol]149 mg/sDGzhw48-50BtnUzepbxSt. Rita's HospitalGlucose [Mass/Vol]123 mg/uWGsru39-91PldWzarxxAkron Children'S HospitalGlucose [Mass/Vol]117 mg/vMHswd27-11OyhCzowraAkron Children'S HospitalLactate (P mayra) [Moles/Vol] on 07-90-5848SRMTFJZ W/REFLEX1.1 mmol/LNormal0.4-2.0[facility] Comment on above:Result Comment: Result did not trigger repeat Lactate,re-order if needed.Performed By: #### 67479-0 ####[facility] ([id number])[address], [place] [address]VCCVGAR W/REFLEX0.9 mmol/L Normal0.4-2.0ProAkron Children'S HospitalComment on above:Result Comment: Result did not trigger repeat Lactate,re-order if needed.Performed By: #### 2823-3, 33128-2 ####[facility] ([id number])[address], [place] [address]SNUTKNZ W/REFLEX1.5 mmol/LNormal0.4-2.0Pro[facility] Hospital HospitalComment on above:Result Comment: Result did not trigger repeat Lactate,re-order if needed.Performed By: #### 44020-3 ####[facility] ([id number])[address], [place] [address]Gocfusa [Moles/Vol]2.3 mmol/LHigh0.4-2.0ProMethodist Hospital AtascosaComment on above: Performed By: #### 79696-5 ####[facility] ([id number])[address] [place] [address]CKBBVJMTPaf 87-15-6864Zzamcyyiz [Mass/Vol]1.3 mg/dLLow1.8-2.6ProAkron Children'S HospitalComment on above:Performed By: #### BMP, CBCA, 2777-1, 56218-7, 02523-1 ####[facility] ([id number])[address], [place] [address]Ekztcryja Ionized ISE (Bld) [Moles/Vol]on 02-57-1225Pofxhoxej [Moles/Vol]0.70 mmol/LNormal0.45-0.74 ProMCleveland Clinic Euclid Hospital HospitalComment on above:Result Comment: NEW REFERENCE RANGE Performed By: #### 64418-0, 72136-8 ####[facility] ([id number])[address], [place] [address]Hnolapeyt [Moles/Vol]0.27 mmol/LLow0.45-0.74ProAkron Children'S HospitalComment on above:Result Comment: NEW REFERENCE RANGEPerformed By: #### 58385-3, 21921-7 ####[facility] ([id number])[address], [address], [place] [address]WIGHEICSLFwd 11-22-2023 Phosphate [Mass/Vol]4.3 mg/dLNormal2.4-4.9ProAkron Children'S HospitalComment on above:Result Comment: SPECIMEN HEMOLYZED, RESULTS INCREASEDMODERATELY HEMOLYZED Performed By: #### BMP, CBCA, 2777-1, 16444-8, 38306-0 ####[facility] ([id number])[address], [place] [address]QUYMMEGQIny 06-74-9054Btfffxtpx [Moles/Vol]3.8 mmol/LNormal3.5-5.0Pro[facility] Hospital Comment on above:Performed By: #### 2823-3 ####[facility] ([id number])[address], [address], [place] [address]Xojhcxzsc [Moles/Vol]3.6 mmol/LNormal3.5-5.0ProAkron Children'S HospitalComment on above:Performed By: #### 2823-3 ####[facility] ([id number])[address], [address], [place] [address]Jzpqgowiu [Moles/Vol]3.2 mmol/LLow3.5-5.0ProAkron Children'S HospitalComment on above:Performed By: #### 2823-3, 96007-7 ####[facility] ([id number])[address], [address], [place] [address]Netzmeztvbtqp IA [Mass/Vol]on 71-45-7084XTENZRIEQHUEN3.22 ng/mLHigh<0.05St. Rita's HospitalComment on above:Result Comment: NOTE<0.50 ng/mL - Low risk of severe sepsis and/or septic shock.<2.00 ng/mL -Recommend retesting within 6-24 hours.>2.00 ng/mL - High risk of sepsis and/or septic shock.Performed By: #### BMP, CBCA, 2777-1, 36553-2, 08972-7 ####[facility] ([id number])[address] [facility], [address] [place] [address] 605[address]Vivadmjk I.cardiac High sensitivity method [Mass/Vol]on HOUR TROP I, HIGH XTOPHKPRERM95 ng/L High<21ProMethodist Hospital AtascosaComment on above:Result Comment: Elevations of hs-Troponin may be due to causesother than myocardial ischemia.Recommend serial hs-Troponin testing be performed.For the initial evaluation and management of chestpain patients, refer to the algorithms linked below.Emergency Patient:[email or web address]?d =[email or web address]&[email or web address]&r=[email or web address]&uh=acaeaInpatient:[email or web address]? [email or web address]&u=62160&uh=acaeaPerformed By: #### 13934-8 ####[facility] ([id number])[address] [place] [address] 99[address]XRVJC CULTUREon 51-80-9759Jsuhmqcx identified Cx Nom (U)CULTURE RESULTS <10,000 ORGANISMS/mL NORMAL URO GENITAL FLORANormalGuernsey Memorial HospitalComment on above: Performed By: #### 630-4 ####[facility] ([id number])[address] [facility], [address] [place] [address]26[address]QJZ MACROSCOPIC NURon 66-91-7443EAARHDIOI NURNegativeNormalNEGGuernsey Memorial HospitalComment on above:Performed By: #### NUM ####[facility] ([id number])[address] [place] [address], [place] [address]ABDTR/HGB NURLargeAbProtestant Hospital Comment on above:Performed By: #### NUM ####[facility] ([id number])[address] [place] [address], [place] [address]FZIMWRM ENMANUEL NegativeNormalNEGGuernsey Memorial HospitalComment on above:Performed By: #### NUM ####[facility] ([id number])[address] [place] [address], [place] [address]KDECXGF NURNegativeNormalNEGGuernsey Memorial Hospital Comment on above:Performed By: #### NUM ####[facility] ([id number])[address] [place] [address] [place] [address]KOQPCHZWP ESTERASE NURMODERATEAbcusterNEGGuernsey Memorial HospitalComment on above: Performed By: #### NUM ####[facility] ([id number])[address] [place] [address], [place] [address]CZUTAIP NURNegativeNormalNEGGuernsey Memorial HospitalComment on above:Performed By: #### NUM ####[facility] ([id number])[address] [place] [address], [place] [address]QO ENMANUEL 5.8Dgmxmp6.0-8.5Pro[facility]ica [facility] Cancer HospitalComment on above:Performed By: #### NUM ####[facility] ([id number])[address] [place] [address], [place] [address]FLQSNWD GEA298 mg/dLAbnormalNEGGuernsey Memorial Hospital Comment on above:Performed By: #### NUM ####[facility] ([id number])[address] [place] [address], [place] [address]ECZYYISC GRAVITY NUR1.165Sccrcl3.003-1.035ProMethodist Hospital AtascosaComment on above:Performed By: #### NUM ####[facility] ([id number])[address] [place] [address]FFBPLLVFZZDC NUR0.2 eu/dLNormal<1.1PSt. Vincent HospitalComment on above:Performed By: #### NUM ####[facility] ([id number])[address] [place] [address] 368[address]EHZUD CULTUREon 74-44-6983Adbirthq identified Aer cx Nom (Bld)SPECIMEN NOTES RAN ASSAYED CONTROL TO IDENTIFY TREND CULTURE RESULTS NO GROWTH 5 DAYSNormalProMethodist Hospital AtascosaComment on above:Performed By: #### 68773-2 ####[facility] ([id number])[address] [place] [address], [place] [address]YIO AND AUTO DIFFon 39-95-1355SLIXKURO BASOPHIL0.1 X10E9/LNormal0.0-0.2PSt. Vincent HospitalComment on above:Performed By: #### CMP, CBCA, 81297-2, 51123-4 ####[facility] ([id number])[address] [place] [address] 38601GZZJYVIX NEUTROPHIL5.3 X10E9/L Normal1.5-6.6Guernsey Memorial HospitalComment on above:Performed By: #### CMP, CBCA, 16473-0, 85618-5 ####[facility] ([id number])[address] [place] [address] 50861Izmoxmjod/100 WBC (Bld)1.5 %NormalProMethodist Hospital AtascosaComment on above:Performed By: #### CMP, CBCA, 54724-3, 78657-8 ####[facility] ([id number])[address] [place] [address] 60682Pviszruaktj (Bld) [#/Vol]0.0 10*3/uLNormal0.0-0.4Guernsey Memorial HospitalComment on above:Performed By: #### EBONY, CBCA, 90645-9, 57686-9 ####[facility] ([id number])[address] [place] [address] 14522Aorpcfpivkz/100 WBC (Bld)0.5 %NormalProMethodist Hospital AtascosaComment on above:Performed By: #### EBONY, CBCA, 64465-0, 29805-4 ####[facility] ([id number])[address] [place] [address] 96958Uwcuxqkmarw distribution width (RBC) [Ratio]21.2 %High 11.5-15.0Gu[facility]sey Memorial HospitalComment on above:Performed By: #### EBONY CBCRachel, 22649-7, 03259-4 ####[facility] ([id number])[address] [place] [address] 10552Sehtcfpvwg (Bld) [Volume fraction]22.4 %Low 39-49Guernsey Memorial HospitalComment on above:Performed By: #### EBONY, CBCA, 64984-2, 62480-6 ####[facility] ([id number])[address] [place] [address] 55860Dvqjnrnfqt (Bld) [Mass/Vol]7.6 g/dLLow 13.0-17.0[facility] City Hospitalment on above:Performed By: #### EBONY, CBCA, 74229-8, 65274-1 ####[facility] ([id number])[address] [place] [address] 86826Wsihoorrtqk (Bld) [#/Vol]1.2 10*3/uLNormal 1.0-3.5PSt. Vincent HospitalComment on above:Performed By: #### EBONY, CBCA, 05771-2, 84795-6 ####[facility] ([id number])[address] [place] [address] 10204Dikvywqmxkq/100 WBC (Bld)16.6 %Normal ProMbullock county hospitala [facility] Jr. Cancer HospitalComment on above:Performed By: #### CMP, CBCA, 43663- 7, 12788-3 ####[facility] ([id number])[address] [place] [address] 71789PHE (RBC) [Entitic mass]34.6 drScad81-19UrkZndepgMethodist Hospital AtascosaComment on above:Performed By: #### CMP, CBCA, 78826-0, 52890-8 ####[facility] ([id number])[address] [place] [address] 41531RVKN (RBC) [Mass/Vol]34.0 g/sGWmiumb59-39CmrXgqlqdMethodist Hospital AtascosaComment on above:Performed By: #### CMP, CBCA, 31984-4, 48041-9 ####[facility] ([id number])[address] [place] [address] 77344RKL (RBC) [Entitic vol]102 bCMxlv45-831WskRtbfwtMethodist Hospital AtascosaComment on above:Performed By: #### CMP, CBCA, 48334-8, 16473-1 ####[facility] ([id number])[address] [place] [address] 16090Vrcnrclfo (Bld) [#/Vol]0.5 10*3/uLNormal0-0.9Gu[facility] Memorial HospitalComment on above:Performed By: #### CMP, CBCA, 07401-7, 31203-3 ####[facility] ([id number])[address] [place] [address] 78786Bswgjogez/100 WBC (Bld)7.5 %NormalProSelect Medical Specialty Hospital - Trumbull HospitalComment on above:Performed By: #### CMP, CBCA, 08047-4, 12684-0 ####[facility] ([id number])[address] [place] [address] 01011Jnmawkgnjpo/100 WBC (Bld)73.9 %NormalGuernsey Memorial HospitalComment on above:Performed By: #### CMP, CBCA, 59102-7, 50305-0 ####[facility] ([id number])[address] [place] [address] 86541Ooctkkia mean volume (Bld) [Entitic vol]11.2 fLNormal7-12 [facility] Memorial HospitalComment on above:Performed By: #### CMP, CBCA, 29395- 7, 82203-5 ####[facility] ([id number])[address] [place] [address] 95524Cgqkuumgr (Bld) [#/Vol]116 10*3/xLGbz997-650 [facility] HospitalComment on above:Performed By: #### CMP, CBCA, 34313- 7, 70462-1 ####[facility] ([id number])[address] [place] [address] 96023KBW COUNT2.20 X10E12/LLow4.10-5.70ProMethodist Hospital AtascosaComment on above:Performed By: #### CMP, CBCA, 35133-0, 36297-5 ####[facility] ([id number])[address] [place] [address] 13898IQS (Bld) [#/Vol]7.2 10*3/uLNormal4.0-11.0[facility] Memorial HospitalCompontiac general hospital on above:Performed By: #### CMP, CBCA, 21996-2, 00599-8 ####[facility] ([id number])[address] [place] [address] 15356TGWWZERUDKAZI METABOLIC PANELon 17-58-4788Vltkvmg [Mass/Vol]3.1 g/dLLow3.2-5.3ProMedKindred HospitalComment on above:Performed By: #### MARVA BECK, 84786-1, 44297-1 ####[facility] ([id number])[address] [place] [address], [place] [address]BIK [Catalytic activity/Vol]78 U/ECyvmbd06-925NayYsowxyMethodist Hospital AtascosaComment on above: Performed By: #### MARVA BECK, 89672-3, 65124-5 ####[facility] ([id number])[address] [place] [address], [place] [address]YKA [Catalytic activity/Vol]13 U/LNormal0-40ProMethodist Hospital AtascosaComment on above: Performed By: #### MARVA BECK, 78552-4, 36690-1 ####[facility] ([id number])[address] [place] [address], [place] [address]Sslgm gap [Moles/Vol]16 mmol/LHigh5-15ProMethodist Hospital AtascosaComment on above:Performed By: #### AMRVA BECK, 95532-1, 60223-2 ####[facility] ([id number])[address] [place] [address] [place] [address]VMV [Catalytic activity/Vol]17 U/LNormal0-41ProMethodist Hospital AtascosaComment on above: Performed By: #### MARVA BECK, 76734-2, 94511-3 ####[facility] ([id number])[address] [place] [address], [place] [address]Lmwhvskjq [Mass/Vol]0.6 mg/dLNormal0.3-1.2PSt. Vincent HospitalComment on above: Performed By: #### MARVA BECK, 64415-2, 18843-7 ####[facility] ([id number])[address] [place] [address], [place] [address]Ilanlzd [Mass/Vol]7.8 mg/dLLow8.5-10.5PSt. Vincent HospitalComment on above: Performed By: #### MARVA BECK, 03324-6, 66517-4 ####[facility] ([id number])[address] [place] [address], [place] [address]Hnjgacil [Moles/Vol]98 mmol/MWojbfu75-153WjxGljmpgMethodist Hospital AtascosaComment on above: Performed By: #### MARVA BECK, 07185-1, 24173-4 ####[facility] ([id number])[address] [place] [address], [place] [address]CQ0 [Moles/Vol]17 mmol/DOvx32-16BcjSsvinnSt. Vincent HospitalComment on above:Performed By: #### MARVA BECK, 40617-9, 64757-1 ####[facility] ([id number])[address] [place] [address] 50[address]Wdiwqajtkm [Mass/Vol]3.97 mg/dLHigh 0.70-1.20ProMethodist Hospital AtascosaComment on above:Result Comment: METHOD TRACEABLE TO IDMS STANDARDPerformed By: #### MARVA BECK, 18242-5, 94359-1 ####[facility] ([id number])[address] [place] [address], [place] [address]TJW/1.73 sq M.predicted among non-blacks MDRD (S/P/Bld) [Vol rate/Area]15 mL/min/{1.73_m2}Low>59ProMethodist Hospital AtascosaComment on above:Result Comment: Reported eGFR is based on theCKD-EPI 2020 equation that doesnot use a race coefficient.Performed By: #### MARVA BECK, 95041-0, 11780-1 ####[facility] ([id number])[address] [place] [address], [place] [address]Uumvssz [Mass/Vol]107 mg/cVNpyr09-14SqvAqbqgoMethodist Hospital AtascosaComment on above:Performed By: #### MARVA BECK, 77850-7, 24302-4 ####[facility] ([id number])[address] [place] [address]23[address]Kdgtqqndu [Moles/Vol]2.6 mmol/LCritically low3.5-5.0 ProMLanterman Developmental CenterComment on above:Performed By: #### MARVA BECK, 26332- 7, 21217-7 ####[facility] ([id number])[address] [place] [address] 98412Qgupjnx [Mass/Vol]6.6 g/dLNormal6.0-8.0[facility] HospitalComment on above:Performed By: #### MARVA BECK, 77369-2, 32742-9 ####[facility] ([id number])[address] [place] [address] 41193Oizovn [Moles/Vol]131 mmol/ZCmq834-152ZzaXbyoojMethodist Hospital AtascosaComment on above:Performed By: #### MARVA BECK, 39682-6, 91573-1 ####[facility] ([id number])[address] [place] [address] 97983Najg nitrogen [Mass/Vol]71 mg/dLHigh5-27ProMethodist Hospital AtascosaComment on above:Performed By: #### MARVA BECK, 08588-9, 58873-6 ####[facility] ([id number])[address] [place] [address] 43292Chrkmk D-dimer DDU (PPP) [Mass/Vol]on 11-21-2023 TEMQX697 ng/mL DDUHigh<255ProMethodist Hospital AtascosaComment on above:Result Comment: Results >=255ng/mL DDU: Results may beindicative of the presence of VTE. The useof the Wells score and further diagnostictests should be considered. Elevated D-Dimerlevels can alsobe associated with DIC,neoplasm, , trauma and liver disease.Elevated levels of rheumatoid factor may leadto an overestimation of the D-Dimer level.Performed By: #### CMP, CBCA, 33717-9, 38458-8 ####[facility] ([id number])[address] [place] [address] 03209Vzchlhd (P mayra) [Moles/Vol]on 97-55-8413KPUZSIT W/REFLEX2.4 mmol/LHigh 0.4-2.0ProMethodist Hospital AtascosaComment on above:Performed By: #### 53521-8 ####[facility] ([id number])[address] [place] [address] 65941Pzugehwk I.cardiac High sensitivity method [Mass/Vol]on 81-48-4847YFWHTODZ I, HIGH UFLGKZKAPGG78 ng/LHigh<21Pro[facility] Comment on above:Result Comment: Elevations of hs-Troponin may be due to causesother than myocardial ischemia.Recommend serial hs-Troponin testing be performed.For the initial evaluation and management of chestpain patients, refer to the algorithms linked below.Emergency Patient:[email or web address]:[email or web address] By: #### CMP, CBCA, 63260-4, 49020- 5 ####[facility] ([id number])[address] [place] [address] 37815HRT AND AUTO DIFFon 95-19-4058UKBRWUUA BASOPHIL0.1 X10E9/L Normal0.0-0.2PMercy Health St. Anne HospitalComment on above:Performed By: #### CBCA, 50628-6, CMP ####[facility] ([id number])[address], [address], [place] [address]DYQUIHUS NEUTROPHIL4.9 X10E9/LNormal1.5-6.6Pro[facility]ica Ward HospitalComment on above:Performed By: #### MARVA, , CMP ####[facility] ([id number])[address], [address] [address] Basophils/100 WBC (Bld)1.6 %NormalProMedica Ward HospitalComment on above: Performed By: #### MARVA, , CMP ####[facility] ([id number])[address], [address] [place] [address]Hqqsjomtppe (Bld) [#/Vol] 0.3 10*3/uLNormal0.0-0.4ProMedica Ward HospitalComment on above:Performed By: #### MARVA, , CMP ####[facility] ([id number])[address], [place] [address]Lysvlriocwx/100 WBC (Bld)3.7 %Normal [facility] HospitalComment on above:Performed By: #### MARVA, , CMP ####[facility] ([id number])[address], [address] [place] [address] 32324Tdlcyjwzdzq distribution width (RBC) [Ratio]20.5 %High11.5-15.0[facility] HospitalComment on above:Performed By: #### MARVA, , CMP ####[facility] ([id number])[address], [address] [place] [address] Hematocrit (Bld) [Volume fraction]23.3 %Ujb51-35MkvUcgxie Ward HospitalComment on above:Performed By: #### MARVA, , CMP ####[facility] ([id number])[address], [address], [place] [address]Bqymqsqzgb (Bld) [Mass/Vol] 7.9 g/dLLow13.0-17.0ProMedica Ward HospitalComment on above:Performed By: #### MARVA, , CMP ####[facility] ([id number])[address], [address], [place] [address]Dbsmvlntytb (Bld) [#/Vol]1.8 10*3/uLNormal1.0-3.5 [facility] HospitalComment on above:Performed By: #### MARVA, , CMP ####[facility] ([id number])[address], [address], [place] [address]Btrpnbvvujd/100 WBC (Bld)24.4 %NormalProMedica Paynesville HospitalComment on above:Performed By: #### MARVA, , CMP ####[facility] ([id number])[address], [address], [place] [address]PAU (RBC) [Entitic mass] 33.4 bwZhuyuq60-74MifLccozi Ward HospitalComment on above:Performed By: #### MARVA, , CMP ####[facility] ([id number])[address], [address], [place] [address]HOCH (RBC) [Mass/Vol]33.7 g/nTTywyia37-48PqzKvvsey Ward HospitalComment on above:Performed By: #### MARVA, , CMP ####[facility] ([id number])[address], [address], [place] [address]MYM (RBC) [Entitic vol]99 yYMqweaj39-852MwyXyklos Ward HospitalComment on above: Performed By: #### MARVA, , CMP ####[facility] ([id number])[address], [address], [place] [address]Sgctipduv (Bld) [#/Vol]0.4 10*3/uLNormal0-0.9ProMedica Ward HospitalComment on above:Performed By: #### MARVA, , CMP ####[facility] ([id number])[address], [address], [place] [address]Tvqbiwdtw/100 WBC (Bld)4.9 %NormalProMedica Ward HospitalComment on above:Performed By: #### MARVA, , CMP ####[facility] ([id number])[address], [address], [place] [address] Neutrophils/100 WBC (Bld)65.4 %NormalProMedica Ward HospitalComment on above: Performed By: #### MARVA, , CMP ####[facility] ([id number])[address], [address], [place] [address]Sljsptur mean volume (Bld) [Entitic vol]9.4 fLNormal7-12Pro[facility] HospitalComment on above:Performed By: #### MARVA, , CMP ####[facility] ([id number])[address], [address], [place] [address]Halnkssbb (Bld) [#/Vol]154 10*3/uLNormal 150-450ProMedica Ward HospitalComment on above:Performed By: #### MARVA, , CMP ####[facility] ([id number])[address], [address], [place] [address]JJU COUNT2.35 X10E12/LLow4.10-5.70[facility] Comment on above:Performed By: #### MARVA, , CMP ####[facility] ([id number])[address], [place] [address]QQB (Bld) [#/Vol]7.6 10*3/uLNormal4.0-11.0Pro[facility]ica [facility] HospitalComment on above: Performed By: #### MARVA, , CMP ####[facility] ([id number])[address], [address], [place] [address]KZBWDKUWQMOJG METABOLIC PANELon 04-25-7307Xaqzgdn [Mass/Vol]2.9 g/dLLow3.2-5.3PMercy Health St. [facility] Comment on above:Performed By: #### MARVA , CMP ####[facility] ([id number])[address], [place] [address]QTL [Catalytic activity/Vol]215 U/DLvfc99-686McfJqotlh Ward HospitalComment on above: Performed By: #### MARVA , CMP ####[facility] ([id number])[address], [place] [address]EVZ [Catalytic activity/Vol]19 U/LNormal0-40Pro[facility] HospitalComment on above:Performed By: #### MARVA, , CMP ####[facility] ([id number])[address], [address], [place] [address]Jmmzz gap [Moles/Vol]6 mmol/LNormal5-15 [facility] HospitalComment on above:Performed By: #### MARVA, , CMP ####[facility] ([id number])[address], [place] [address]IRM [Catalytic activity/Vol]24 U/LNormal0-41[facility] Comment on above:Performed By: #### MARVA, , CMP ####[facility] ([id number])[address], [address], [place] [address]Koiffqynn [Mass/Vol]0.7 mg/dLNormal0.3-1.2PPeoples Hospital HospitalComment on above: Performed By: #### MARVA, , CMP ####[facility] ([id number])[address], [address], [place] [address]Ioejuia [Mass/Vol]9.6 mg/dL Normal8.5-10.5PPeoples Hospital HospitalComment on above:Performed By: #### MARVA , CMP ####[facility] ([id number])[address], [address], [place] [address]Tjlmqtqc [Moles/Vol]103 mmol/POcuhhd44-406BrgOsqyxd [place] HospitalComment on above:Performed By: #### MARVA , CMP ####[facility] ([id number])[address] [address] [address]SV2 [Moles/Vol]29 mmol/MTerkvs93-09IsxMkgbvj [place] HospitalComment on above: Performed By: #### MARVA, , CMP ####[facility] ([id number])[address] [address], [place] [address]Cawknbsmrb [Mass/Vol]0.82 mg/dLNormal0.60-1.30ProAkron Children'S HospitalComment on above:Result Comment: METHOD TRACEABLE TO IDMS STANDARDPerformed By: #### MARVA , CMP ####[facility] ([id number])[address] [address], [place] [address]p[place] (CKD-EPI) NON-RACE DEPENDENT>90Normal>59Pro[facility] Comment on above:Result Comment: Reported eGFR is based on theCKD-EPI 2020 equation that doesnot use a race coefficient.Performed By: #### MARVA, , CMP ####[facility] ([id number])[address], [place] [address]Ohjcmah [Mass/Vol]92 mg/oGRrachu35-93OlkZfetti [place] HospitalComment on above:Performed By: #### MARVA, , CMP ####[facility] ([id number])[address], [address] [place] [address] Potassium [Moles/Vol]4.3 mmol/LNormal3.5-5.0[facility] HospitalComment on above:Performed By: #### MARVA, , CMP ####[facility] ([id number])[address], [place] [address]Lczedzo [Mass/Vol]6.5 g/dL Normal6.0-8.0[facility] HospitalComment on above:Performed By: #### MARVA , CMP ####[facility] ([id number])[address], [address] [place] [address]Ztjboh [Moles/Vol]138 mmol/FZybgkv694-226BzyAwfyhf [place] HospitalComment on above:Performed By: #### MARVA , CMP ####[facility] ([id number])[address], [address] [place] [address], [place] [address]Tqfp nitrogen [Mass/Vol]7 mg/dLNormal5-27[facility] HospitalComment on above: Performed By: #### MARVA, , CMP ####[facility] ([id number])[address], [address], [place] [address]Luvednn Glucometer (BldC) [Mass/Vol]on 14-74-6328Qqdpvtx [Mass/Vol]104 mg/lKUjid03-42CknVotfxd [place] HospitalMAGNESIUMon 20-44-4274Ijbybdynb [Mass/Vol]2.2 mg/dLNormal1.8-2.6 [facility] HospitalComment on above:Performed By: #### 76473-2 ####[facility] ([id number])[address], [address] [place] [address] Magnesium [Mass/Vol]1.7 mg/dLLow1.8-2.6Pro[facility] HospitalComment on above:Performed By: #### CBCRachel, , CMP ####[facility] ([id number])[address], [address] [place] [address]ELI AND AUTO DIFFon 18-27-4005OZQAAXUC BASOPHIL0.0 X10E9/LNormal0.0-0.2[facility] Comment on above:Performed By: #### EBONY, , CBCA ####[facility] ([id number])[address], [address] [place] [address] 11845ZUGSRGJE NEUTROPHIL4.2 X10E9/LNormal1.5-6.6[facility] HospitalComment on above: Performed By: #### EBONY, , CBCA ####[facility] ([id number])[address], [address] [place] [address]Yizpnblyk/100 WBC (Bld)0.4 %NormalProCommunity Memorial Hospital HospitalComment on above:Performed By: #### EBONY, , CBCA ####[facility] ([id number])[address], [address] [place] [address]Dslkvomimjp (Bld) [#/Vol]0.3 10*3/uLNormal0.0-0.4[facility] HospitalComment on above:Performed By: #### EBONY, , CBCA ####[facility] ([id number])[address], [address] [place] [address] Eosinophils/100 WBC (Bld)4.7 %NormalProRegional Medical Centerca Paynesville HospitalComment on above: Performed By: #### EBONY, , CBCA ####[facility] ([id number])[address], [address] [place] [address]Hlgoosshika distribution width (RBC) [Ratio]19.8 %High11.5-15.0Pro[facility] HospitalComment on above: Performed By: #### EBONY, , CBCA ####[facility] ([id number])[address], [address] [place] [address]Xxcoivhmlf (Bld) [Volume fraction]22.1 %Hdu60-22UffGpddqj [place] HospitalComment on above:Performed By: #### EBONY, , CBCA ####[facility] ([id number])[address], [address] [place] [address]Fevnzzzfke (Bld) [Mass/Vol]7.4 g/dLLow 13.0-17.0Pro[facility] Cent[facility] HospitalComment on above:Performed By: #### EBONY, , CBCA ####[facility] ([id number])[address] [address] [place] [address]Tphggairvrq (Bld) [#/Vol]1.6 10*3/uLNormal1.0-3.5[facility] HospitalComment on above:Performed By: #### CMP, , CBCA ####[facility] ([id number])[address], [address] [place] [address] Lymphocytes/100 WBC (Bld)23.9 %NormalProCommunity Memorial Hospital HospitalComment on above: Performed By: #### EBONY, , CBCA ####[facility] ([id number])[address], [address] [place] [address]LUT (RBC) [Entitic mass] 33.2 dbCvohlf43-54ZvtJsqqrg [place] HospitalComment on above:Performed By: #### EBONY, , CBCA ####[facility] ([id number])[address], [address] [place] [address]MDBT (RBC) [Mass/Vol]33.3 g/hOKfitvb74-67OebHgkrxi [facility] HospitalComment on above:Performed By: #### CMP, , CBCA ####[facility] ([id number])[address], [place] [address]AXY (RBC) [Entitic vol]100 kJNwtgbd28-173XmcBjtqez [facility] HospitalComment on above: Performed By: #### EBONY, , CBCA ####[facility] ([id number])[address], [address] [place] [address]Iouqbvvnr (Bld) [#/Vol]0.6 10*3/uLNormal0-0.9Pro[facility] Cent[facility] HospitalComment on above:Performed By: #### EBONY, , CBCA ####[facility] ([id number])[address], [address] [place] [address]Tacbcdxah/100 WBC (Bld)9.1 %NormalProRegional Medical Centerca [facility] HospitalComment on above:Performed By: #### EBONY, , CBCA ####[facility] ([id number])[address], [address] [place] [address]672 Neutrophils/100 WBC (Bld)61.9 %NormalProMedica Paynesville HospitalComment on above: Performed By: #### CMP, , CBCA ####[facility] ([id number])[address], [address] [place] [address] 767[address]Nryxowsu mean volume (Bld) [Entitic vol]9.6 fLNormal7-12[facility] HospitalComment on above:Performed By: #### EBONY, , CBCA ####[facility] ([id number])[address], [address] [place] [address]Oeetipcao (Bld) [#/Vol]138 10*3/aHZqw671-782 [facility] HospitalComment on above:Performed By: #### EBONY, , CBCA ####[facility] ([id number])[address], [address] [place] [address]LBN COUNT2.22 X10E12/LLow4.10-5.70[facility] HospitalComment on above:Performed By: #### EBONY, , CBCA ####[facility] ([id number])[address], [address] [place] [address] 357[address]GFZ (Bld) [#/Vol]6.8 10*3/uLNormal4.0-11.0[facility] HospitalComment on above:Performed By: #### EBONY, , CBCA ####[facility] ([id number])[address], [address] [place] [address] 20351RGJYREVXGZMWI METABOLIC PANELon 10-30-2023 Albumin [Mass/Vol]2.8 g/dLLow3.2-5.3[facility] HospitalComment on above: Performed By: #### EBONY, , CBCA ####[facility] ([id number])[address], [place] [address]TOI [Catalytic activity/Vol]203 U/WXuho94-002HmbHeiwfl [facility] HospitalComment on above: Performed By: #### EBONY, , CBCA ####[facility] ([id number])[address], [address] [place] [address]QFA [Catalytic activity/Vol]18 U/LNormal0-40[facility] HospitalComment on above:Performed By: #### EBONY, , CBCA ####[facility] ([id number])[address], [address], [place] [address]Sjaos gap [Moles/Vol]6 mmol/LNormal5-15 [facility] HospitalComment on above:Performed By: #### EBONY, , CBCA ####[facility] ([id number])[address], [place] [address]EUF [Catalytic activity/Vol]25 U/LNormal0-41[facility] Comment on above:Performed By: #### EBONY, , CBCA ####[facility] ([id number])[address], [place] [address]Whhpkuvou [Mass/Vol]0.7 mg/dLNormal0.3-1.2[facility] HospitalComment on above: Performed By: #### EBONY, , CBCA ####[facility] ([id number])[address], [place] [address]Xlcmwhn [Mass/Vol]9.1 mg/dL Normal8.5-10.5[facility] HospitalComment on above:Performed By: #### EBONY, , CBCA ####[facility] ([id number])[address], [place] [address]Idnezmwt [Moles/Vol]104 mmol/BAkjivw48-359IeyHoaajn [facility] HospitalComment on above:Performed By: #### EBONY, , CBCA ####[facility] ([id number])[address], [address], [place] [address]ZM3 [Moles/Vol]27 mmol/DArwdug53-90YgwYgzqux [facility] HospitalComment on above: Performed By: #### EBONY, , CBCA ####[facility] ([id number])[address] [address], [place] [address]Qngecnagfi [Mass/Vol]0.85 mg/dLNormal0.60-1.30ProAk[facility] Children'S HospitalComment on above:Result Comment: METHOD TRACEABLE TO IDMS STANDARDPerformed By: #### EBONY, , CBCA ####[facility] ([id number])[address] [address], [place] [address]aUJN (CKD-EPI) NON-RACE DEPENDENT>90Normal>59[facility] Comment on above:Result Comment: Reported eGFR is based on theCKD-EPI 2020 equation that doesnot use a race coefficient.Performed By: #### EBONY, , CBCA ####[facility] ([id number])[address] [address], [place] [address]Fpwglro [Mass/Vol]100 mg/sDZjgr40-37KhwOmuntnAkron Children'S Hospital Comment on above:Performed By: #### EBONY, , CBCA ####[facility] ([id number])[address] [address], [place] [address]Hxdzgsber [Moles/Vol]4.1 mmol/LNormal3.5-5.0ProAk[facility] Children'S HospitalComment on above: Performed By: #### EBONY, , CBCA ####[facility] ([id number])[address] [address], [place] [address]Wmklgaq [Mass/Vol]6.0 g/dL Normal6.0-8.0ProAkron Children'S HospitalComment on above:Performed By: #### EBONY, , CBCA ####[facility] ([id number])[address] [address], [place] [address]Rjxejc [Moles/Vol]137 mmol/MKuxctm650-689DviBacmqd [facility] HospitalComment on above:Performed By: #### EBONY, 62560-0, CBCA ####[facility] ([id number])[address], [address] [place] [address]Veps nitrogen [Mass/Vol]8 mg/dLNormal5-27[facility] HospitalComment on above: Performed By: #### EBONY, 05369-1, CBCA ####[facility] ([id number])[address], [address] [place] [address]Hdpauqe Glucometer (BldC) [Mass/Vol]on 84-63-7817Nbfjrwr [Mass/Vol]118 mg/vZVxqh22-74BccVyhfei [facility] HospitalGlucose [Mass/Vol]181 mg/pFFgyk16-19RwxKzyawq [facility] HospitalGlucose [Mass/Vol]98 mg/cLDvfkpw54-84JiuFyvvjs [facility] HospitalGlucose [Mass/Vol]98 mg/dL Smpixm87-22NcwAxvxjq [facility] HospitalMAGNESIUMon 42-44-2969Yghdunxos [Mass/Vol] 2.4 mg/dLNormal1.8-2.6[facility] HospitalComment on above:Performed By: #### EBONY, 90478-2, CBCA ####[facility] ([id number])[address] [place] [address] 28[address]MRN AND AUTO DIFFon 00-35-1637UCGUMCWG BASOPHIL0.1 X10E9/LNormal0.0-0.2[facility] HospitalComment on above: Performed By: #### 35142-7, CBCA, CMP ####[facility] ([id number])[address], [address] [place] [address]IJSHMCVP NEUTROPHIL4.2 X10E9/LNormal1.5-6.6[facility] HospitalComment on above:Performed By: #### 26815-2, CBCA, CMP ####[facility] ([id number])[address], [place] [address]Eltxhwfzv/100 WBC (Bld)1.1 %NormalProRegional Medical Centerca [facility]nesville HospitalComment on above:Performed By: #### 12821-4, CBCA, CMP ####[facility] ([id number])[address] [address] Eosinophils (Bld) [#/Vol]0.3 10*3/uLNormal0.0-0.4[facility] Comment on above:Performed By: #### 25633-8, CBCA, CMP ####[facility] ([id number])[address], [place] [address]Srixdlqhqty/100 WBC (Bld)5.1 %NormalProCommunity Memorial Hospital HospitalComment on above:Performed By: #### 83284-9, CBCA, CMP ####[facility] ([id number])[address], [address] [place] [address]Xeetxywfjub distribution width (RBC) [Ratio]19.6 %High 11.5-15.0[facility] HospitalComment on above:Performed By: #### 59217-1, CBCA, CMP ####[facility] ([id number])[address], [address] [place] [address]Wryvwsuhph (Bld) [Volume fraction]23.6 %Hoz84-54KcgTminhs [place] HospitalComment on above:Performed By: #### 62181-3, CBCA, CMP ####[facility] ([id number])[address], [address] [place] [address] Hemoglobin (Bld) [Mass/Vol]7.9 g/dLLow13.0-17.0[facility] [place] HospitalComment on above:Performed By: #### 30721-2, CBCA, CMP ####[facility] ([id number])[address], [address] [place] [address]Utsonbxgkzv (Bld) [#/Vol] 1.6 10*3/uLNormal1.0-3.5[facility] HospitalComment on above:Performed By: #### 64256-6, CBCA, CMP ####[facility] ([id number])[address], [address], [place] [address]Rmiwjlmtzey/100 WBC (Bld)23.7 %Normal [facility] HospitalComment on above:Performed By: #### 40603-7, CBCA, CMP ####[facility] ([id number])[address], [address] [place] [address]0935EZL (RBC) [Entitic mass]33.4 nmVobein49-52GqeWsbumt Ward HospitalComment on above:Performed By: #### 93683-9, CBCA, CMP ####[facility] ([id number])[address], [address] [place] [address] 36[address]VTYC (RBC) [Mass/Vol]33.6 g/pAPsgcqh29-65VywFxyamb Ward HospitalComment on above:Performed By: #### 75640-5, CBCA, CMP ####[facility] ([id number])[address], [address] [place] [address] 16351MIX (RBC) [Entitic vol]100 nSTyfbak50-767SfpBpdedv Ward HospitalComment on above:Performed By: #### 53913-8, CBCA, CMP ####[facility] ([id number])[address], [address] [place] [address] Monocytes (Bld) [#/Vol]0.6 10*3/uLNormal0-0.9[facility] HospitalComment on above:Performed By: #### 89912-6, CBCA, CMP ####[facility] ([id number])[address], [address], [place] [address]Fcybqlyrj/100 WBC (Bld)8.6 %NormalProRegional Medical Centerca [place] HospitalComment on above:Performed By: #### 99929-4, CBCA, CMP ####[facility] ([id number])[address], [address], [place] [address]Lbopgtrdzxa/100 WBC (Bld)61.5 %NormalProRegional Medical Centerca [place] HospitalComment on above:Performed By: #### 04017-5, CBCA, CMP ####[facility] ([id number])[address], [address] [address] Platelet mean volume (Bld) [Entitic vol]9.8 fLNormal7-12[facility] HospitalComment on above:Performed By: #### 63471-3, CBCA, CMP ####[facility] ([id number])[address], [address] [address] Platelets (Bld) [#/Vol]149 10*3/uJIxk826-232LxmGxqtov [place] HospitalComment on above:Performed By: #### 42788-2, CBCA, CMP ####[facility] ([id number])[address], [address] [place] [address]MZY COUNT2.37 X10E12/LLow 4.10-5.70[facility] HospitalComment on above:Performed By: #### 86204-9, CBCA, CMP ####[facility] ([id number])[address], [address] [place] [address]XAE (Bld) [#/Vol]6.7 10*3/uLNormal4.0-11.0[facility] [place] HospitalComment on above:Performed By: #### 40534-1, CBCA, CMP ####[facility] ([id number])[address], [address], [place] [address] COMPREHENSIVE METABOLIC PANELon 77-48-1307Ibgbobm [Mass/Vol]3.0 g/dLLow3.2-5.3 [facility] HospitalComment on above:Performed By: #### 37143-2, CBCA, CMP ####[facility] ([id number])[address], [address], [place] [address]LNM [Catalytic activity/Vol]197 U/ONkya05-116QfyOnxpcfSt. Rita's Hospital Comment on above:Performed By: #### 21544-7, CBCA, CMP ####[facility] ([id number])[address], [address], [place] [address]YMU [Catalytic activity/Vol]18 U/LNormal0-40ProAkron Children'S HospitalComment on above:Performed By: #### 46210-0, CBCA, CMP ####[facility] ([id number])[address], [address], [place] [address]Yfhnv gap [Moles/Vol]7 mmol/LNormal5-15 St[facility] HospitalComment on above:Performed By: #### 93200-1, CBCA, CMP ####[facility] ([id number])[address], [address], [place] [address]TTC [Catalytic activity/Vol]29 U/LNormal0-41[facility] Comment on above:Performed By: #### 91890-6, CBCA, CMP ####[facility] ([id number])[address], [address], [place] [address]Mthejcjyj [Mass/Vol]0.7 mg/dLNormal0.3-1.2ProMedMansfield HospitalComment on above: Performed By: #### 30662-3, CBCA, CMP ####[facility] ([id number])[address], [address], [place] [address]Hejoweo [Mass/Vol]9.3 mg/dL Normal8.5-10.5PMercy Health St. Anne HospitalComment on above:Performed By: #### 48092-4, CBCA, CMP ####[facility] ([id number])[address], [address], [place] [address]Smcwmuva [Moles/Vol]105 mmol/TLbtsfv87-924WyrXpbjvs [place] HospitalComment on above:Performed By: #### 98516-5, CBCA, CMP ####[facility] ([id number])[address], [address], [place] [address]HN4 [Moles/Vol]28 mmol/WZprcrz06-92UpeRhnmhu [place] HospitalComment on above: Performed By: #### 41855-1, CBCA, CMP ####[facility] ([id number])[address], [address], [place] [address]Zqjnolpvow [Mass/Vol]0.82 mg/dLNormal0.60-1.30ProAkron Children'S HospitalComment on above:Result Comment: METHOD TRACEABLE TO IDMS STANDARDPerformed By: #### 30667-3, CBCA, CMP ####[facility] ([id number])[address] [address], [place] [address]hUEL (CKD-EPI) NON-RACE DEPENDENT>90Normal>59ProAkron Children'S Hospital Comment on above:Result Comment: Reported eGFR is based on theCKD-EPI 2020 equation that doesnot use a race coefficient.Performed By: #### 34171-5, CBCA, CMP ####[facility] ([id number])[address] [address], [place] [address]Wofdicq [Mass/Vol]93 mg/pLNvcmpx22-59MyhWhrbrv [place] HospitalComment on above:Performed By: #### 96780-5, CBCA, CMP ####[facility] ([id number])[address], [address] [place] [address] Potassium [Moles/Vol]4.2 mmol/LNormal3.5-5.0Pro[facility] HospitalComment on above:Performed By: #### 69919-9, CBCA, CMP ####[facility] ([id number])[address], [address] [place] [address]Vnjmovs [Mass/Vol]6.2 g/dL Normal6.0-8.0Pro[facility] HospitalComment on above:Performed By: #### 80950- 9, CBCA, CMP ####[facility] ([id number])[address], [address] [place] [address]Jovhvv [Moles/Vol]140 mmol/BUcqogf805-514ZgeOgflil [place] HospitalComment on above:Performed By: #### 41957-3, CBCA, CMP ####[facility] ([id number])[address], [address] [place] [address]Fdms nitrogen [Mass/Vol]8 mg/dLNormal5-27Pro[facility] HospitalComment on above: Performed By: #### 06530-0, CBCA, CMP ####[facility] ([id number])[address], [address] [place] [address]BH CTA TAVRon 14-14-5019SO CTA TAVRNormalProCommunity Memorial Hospital HospitalCopper [Mass/Vol]on 33-00-2437Kbwafg, S 123 mcg/oFLxuhpw15-754DbjQufltd [place] HospitalComment on above:Result Comment: NOTE ADDITIONAL INFORMATION This test was developed and its performance characteristicsdetermined by [facility] in a manner consistent with CLIArequirements. This test has not been cleared or approved bythe U.S. Food and Drug Administration.Test Performed by:[facility] [place] [address] [place], [place] [address]Vmf Director: Anisha Pacheco Ph.D.; CLIA# [id number] Glucometer (BldC) [Mass/Vol]on 83-02-2486Mnyfesx [Mass/Vol]141 mg/zKFjro18-25HfpAigfnb [place] HospitalGlucose [Mass/Vol]87 mg/wQBscymd37-80RlsEoyjyc [facility] Glucose [Mass/Vol]90 mg/zHTyjtpo28-75WleCtjgzm [place] HospitalGlucose [Mass/Vol] 97 mg/zUZjwkam42-49HniNzitch [place] HospitalMAGNESIUMon 75-52-5256Nezicrdjc [Mass/Vol]1.6 mg/dLLow1.8-2.6ProAkron Children'S HospitalComment on above:Performed By: #### 92550-5, CBCA, CMP ####[facility] ([id number])[address] [facility], [address] [place] [address]Oabz [Mass/Vol]on 05-16-2990Ikmc, S53 mcg/dL Lia01-555KqkLcatzsSt. Rita's HospitalComment on above:Result Comment: NOTE ADDITIONAL INFORMATION This test was developed and its performance characteristicsdetermined by [facility] in a manner consistent with CLIArequirements. This test has not been cleared or approved bythe U.S. Food and Drug Administration.Test Performed by:[facility] [place] [address] [place], [place] [address]Qjg Director: Anisha Pacheco Ph.D.; CLIA# [id number] AND AUTO DIFFon 91-07-0912CRVKZXBV BASOPHIL0.1 X10E9/LNormal0.0-0.2PMercy Health St. [facility] Comment on above:Performed By: #### 1988-5, 76727-4, CMP, CBCA ####[facility] ([id number])[address], [address] [address] ABSOLUTE NEUTROPHIL3.8 X10E9/LNormal1.5-6.6ProRegional Medical Centerca [facility]nesville HospitalComment on above:Performed By: #### 1987-06, , CMP, CBCA ####[facility] ([id number])[address], [address], [place] [address]Slgupitto/100 WBC (Bld)1.4 %NormalProCommunity Memorial Hospital HospitalComment on above:Performed By: #### 1987-06, , CMP, CBCA ####[facility] ([id number])[address], [address] [place] [address]Lrzjdidnyxr (Bld) [#/Vol]0.3 10*3/uLNormal 0.0-0.4Pro[facility] HospitalComment on above:Performed By: #### 1987-06, , CMP, CBCA ####[facility] ([id number])[address] [address], [place] [address]Ntpulsxthxy/100 WBC (Bld)5.2 %NormalProCommunity Memorial Hospital HospitalComment on above:Performed By: #### 1987-06, , CMP, CBCA ####[facility] ([id number])[address], [address] [place] [address]Uzmmwprnrtz distribution width (RBC) [Ratio]19.1 %High11.5-15.0Pro[facility] HospitalComment on above:Performed By: #### 1987-06, , CMP, CBCA ####[facility] ([id number])[address], [address] [place] [address]Afgaypvqpu (Bld) [Volume fraction]21.6 %Snx44-65AgwJkzksf [facility] Comment on above:Performed By: #### 1987-06, , CMP, CBCA ####[facility] ([id number])[address], [address] [address] Hemoglobin (Bld) [Mass/Vol]7.2 g/dLLow13.0-17.0[facility] HospitalComment on above:Performed By: #### 1987-06, , CMP, CBCA ####[facility] ([id number])[address], [address], [place] [address]Xdeocllydny (Bld) [#/Vol]1.6 10*3/uLNormal1.0-3.5Pro[facility]ica [facility]nesville HospitalComment on above: Performed By: #### 1987-06, , CMP, CBCA ####[facility] ([id number])[address], [address], [place] [address]Kvolpfptmkh/100 WBC (Bld) 24.8 %NormalProCommunity Memorial Hospital HospitalComment on above:Performed By: #### 1987-06, , CMP, CBCA ####[facility] ([id number])[address], [address] [place] [address]RED (RBC) [Entitic mass]32.9 hbAndmzm36-90QtfCsdvpm [place] HospitalComment on above:Performed By: #### 1987-06, , CMP, CBCA ####[facility] ([id number])[address], [address], [place] [address]FYIT (RBC) [Mass/Vol]33.3 g/dLLuemdm40-74GrsYdstso [place] HospitalComment on above:Performed By: #### 1987-06, , CMP, CBCA ####[facility] ([id number])[address], [address], [place] [address]SIJ (RBC) [Entitic vol]99 mDBiwrxq52-468WriRrzjdu Ward HospitalComment on above: Performed By: #### 1987-06, , CMP, CBCA ####[facility] ([id number])[address], [address] [place] [address]Gkaythann (Bld) [#/Vol]0.6 10*3/uLNormal0-0.9Pro[facility] HospitalComment on above:Performed By: #### 1987-06, , CMP, CBCA ####[facility] ([id number])[address], [address], [place] [address]Wlbtgsnwv/100 WBC (Bld)9.0 %NormalProMedica Ward HospitalComment on above:Performed By: #### 1987-06, , CMP, CBCA ####[facility] ([id number])[address], [address], [place] [address]Iyoxxohrxcv/100 WBC (Bld)59.6 %NormalProMedica Ward HospitalComment on above:Performed By: #### 1987-06, , CMP, CBCA ####[facility] ([id number])[address], [address] [place] [address]Hlalnjuw mean volume (Bld) [Entitic vol]9.7 fLNormal7-12[facility] HospitalComment on above: Performed By: #### 1987-06, , CMP, CBCA ####[facility] ([id number])[address], [address], [place] [address]Jhlxzuvav (Bld) [#/Vol]140 10*3/tZZjc589-160VzbZmiirg [facility] HospitalComment on above:Performed By: #### 1987-06, , CMP, CBCA ####[facility] ([id number])[address], [address], [place] [address]VDA COUNT2.19 X10E12/LLow4.10-5.70Pro[facility] Centerca [facility] HospitalComment on above:Performed By: #### 1987-06, , CMP, CBCA ####[facility] ([id number])[address], [address], [place] [address]TPQ (Bld) [#/Vol]6.4 10*3/uLNormal4.0-11.0Pro[facility] Centerca [facility] HospitalComment on above:Performed By: #### 1987-06, , CMP, CBCA ####[facility] ([id number])[address], [address], [place] [address]EKQQKEXWOJUCM METABOLIC PANELon 16-50-4264Tocsdux [Mass/Vol]2.7 g/dLLow3.2-5.3Pro[facility] HospitalComment on above:Performed By: #### 1987-06, , CMP, CBCA ####[facility] ([id number])[address], [address], [place] [address]FQK [Catalytic activity/Vol]175 U/ZJfgg15-205NcsDuybsa [facility] Comment on above:Performed By: #### 1987-06, , CMP, CBCA ####[facility] ([id number])[address], [address], [place] [address]WEJ [Catalytic activity/Vol]17 U/LNormal0-40[facility] HospitalComment on above:Performed By: #### 1987-06, , CMP, CBCA ####[facility] ([id number])[address], [address], [place] [address]Wkiga gap [Moles/Vol]7 mmol/LNormal5-15Pro[facility] HospitalComment on above:Performed By: #### 1987-06, , CMP, CBCA ####[facility] ([id number])[address], [address], [place] [address]HVI [Catalytic activity/Vol]25 U/LNormal0-41 ProMCleveland Clinic [facility] HospitalComment on above:Performed By: #### 1987-06, , CMP, CBCA ####[facility] ([id number])[address], [address], [place] [address]Ddyffcklq [Mass/Vol]0.6 mg/dLNormal0.3-1.2PPeoples Hospital HospitalComment on above:Performed By: #### 1987-06, , CMP, CBCA ####[facility] ([id number])[address], [place] [address]Ftckhue [Mass/Vol]9.1 mg/dLNormal8.5-10.5PPeoples Hospital HospitalComment on above:Performed By: #### 1987-06, , CMP, CBCA ####[facility] ([id number])[address], [address], [place] [address]Klshypod [Moles/Vol]106 mmol/UFefjwf19-801IyhHqjmwo [place] HospitalComment on above: Performed By: #### 1987-06, , CMP, CBCA ####[facility] ([id number])[address], [address], [place] [address]GC6 [Moles/Vol]28 mmol/L Ewdehc08-19DgrMishen [place] HospitalComment on above:Performed By: #### 1987-06, , CMP, CBCA ####[facility] ([id number])[address], [place] [address]Gzddsfqxfb [Mass/Vol]0.84 mg/dLNormal0.60-1.30[facility] HospitalComment on above:Result Comment: METHOD TRACEABLE TO IDMS STANDARDPerformed By: #### , CMP, CBCA ####[facility] ([id number])[address], [place] [address]qJUM (CKD-EPI) NON-RACE DEPENDENT>90Normal>59Pro[facility] HospitalComment on above:Result Comment: Reported eGFR is based on theCKD-EPI 2020 equation that doesnot use a race coefficient.Performed By: #### 1987-06, , EBONY, CBCA ####[facility] ([id number])[address], [place] [address] Glucose [Mass/Vol]133 mg/sGBkpa97-10EuoHotbey [place]nesville HospitalComment on above: Performed By: #### 1987-06, , EBONY, CBCA ####[facility] ([id number])[address] [address], [place] [address]Fjsgphhcn [Moles/Vol]4.0 mmol/LNormal3.5-5.0[facility] HospitalComment on above:Performed By: #### , EBONY, CBCA ####[facility] ([id number])[address] [address], [place] [address]Jkjnfbs [Mass/Vol]5.7 g/dLLow6.0-8.0 [facility] HospitalComment on above:Performed By: #### , EBONY, CBCA ####[facility] ([id number])[address] [address], [place] [address]Kyagwe [Moles/Vol]141 mmol/JZuhltx120-011TwzRbwobe [facility] HospitalComment on above:Performed By: #### , CMP, CBCA ####[facility] ([id number])[address] [address], [place] [address]Cuwz nitrogen [Mass/Vol]9 mg/dLNormal5-27ProAkron Children'S HospitalComment on above:Performed By: #### 1987-, 32360-7, CMP, CBCA ####[facility] ([id number])[address] [facility], [address] [place] [address]CUA [Mass/Vol]on 10-28-2023 REACTIVE PROTEIN2.5 mg/dLHigh0.000-0.[address] [place] [address] Comment on above:Performed By: #### 1987-, , CMP, CBCA ####[facility] ([id number])[address] [facility], [address] [place] [address] Glucose Glucometer (BldC) [Mass/Vol]on 90-39-7962Qabpvap [Mass/Vol]145 mg/dLHigh 65-99Pro[facility] HospitalGlucose [Mass/Vol]144 mg/uPCxua06-46JuhWwxcrwSt. Rita's HospitalGlucose [Mass/Vol]154 mg/eMXmvi78-53PsaNdyywtSt. Rita's Hospital Glucose [Mass/Vol]86 mg/bGSkawgu42-80YjfYpikob [place] HospitalHeparin unfractionated Chromogenic method Qn (PPP)on 33-67-1811FMZR XA UFH0.74 IU/mLHigh 0.30-0.70ProAkron Children'S HospitalComment on above:Result Comment: Optimal time for testing is 6 hrs post dosageThis test is specific for monitoring patientson UFH, and is not recommended for use withother Anti-Xa medications.Performed By: #### 3274-8 ####[facility] ([id number])[address] [facility], [address] [place] [address]VINY XA UFH1.11 IU/mLCritically high0.30-0.70St[facility] HospitalComment on above:Result Comment: Optimal time for testing is 6 hrs post dosageThis test is specific for monitoring patientson UFH, and is not recommended for use withother Anti-Xa medications.Performed By: #### 3274-8 ####[facility] ([id number])[address] [address] [place] [address]HZIG XA UFH0.98 IU/mLCritically high0.30-0.70[facility] Comment on above:Result Comment: Optimal time for testing is 6 hrs post dosageThis test is specific for monitoring patientson UFH, and is not recommended for use withother Anti-Xa medications.Performed By: #### 3274-8 ####[facility] ([id number])[address] [address] [place] [address]VRYRNCXZZwu 33-41-1010Xmbgfnott [Mass/Vol]2.3 mg/dLNormal1.8-2.6ProAkron Children'S HospitalComment on above:Performed By: #### 1988-5, , CMP, CBCA ####[facility] ([id number])[address] [address]CFO AND AUTO DIFFon 69-84-7712BEAFAFAR BASOPHIL0.1 X10E9/LNormal0.0-0.2 [facility] HospitalComment on above:Performed By: #### 4679-7, 57556-1, CBCA, CMP ####[facility] ([id number])[address] [address]NUWQFRPI NEUTROPHIL4.2 X10E9/LNormal1.5-6.6[facility] HospitalComment on above:Performed By: #### 4679-7, 77858-0, CBCA, CMP ####[facility] ([id number])[address] [address]Vnimospna/100 WBC (Bld)1.2 %NormalProAkron Children'S HospitalComment on above:Performed By: #### 4679-7, 44494-7, CBCA, CMP ####[facility] ([id number])[address] [address]Hksaudsdnpf (Bld) [#/Vol]0.4 10*3/uLNormal0.0-0.4[facility] HospitalComment on above: Performed By: #### 4679-7, , CBCA, CMP ####[facility] ([id number])[address], [place] [address]Ziqahzdguua/100 WBC (Bld) 5.4 %NormalProCommunity Memorial Hospital HospitalComment on above:Performed By: #### 4679-7, , CBCA, CMP ####[facility] ([id number])[address], [address] [place] [address]Sqjcpeorprm distribution width (RBC) [Ratio]18.7 %High 11.5-15.0Pro[facility] HospitalComment on above:Performed By: #### 4679-Selena, , CBCA, CMP ####[facility] ([id number])[address], [address] [place] [address]Dnyyrdjdlr (Bld) [Volume fraction]21.6 %Gwx96-86 [facility] HospitalComment on above:Performed By: #### 4679-7, , CBCA, CMP ####[facility] ([id number])[address], [address] [place] [address]Htjykcygib (Bld) [Mass/Vol]7.2 g/dLLow13.0-17.0[facility] HospitalComment on above:Performed By: #### 4679-7, , CBCA, CMP ####[facility] ([id number])[address], [address] [place] [address]Uapbizhdfyk (Bld) [#/Vol]2.0 10*3/uLNormal1.0-3.5PPeoples Hospital Hospital Comment on above:Performed By: #### 4679-7, , CBCA, CMP ####[facility] ([id number])[address], [address] [place] [address] Lymphocytes/100 WBC (Bld)27.2 %NormalProMedica Ward HospitalComment on above: Performed By: #### 4679-7, 72538-4, CBCA, CMP ####[facility] ([id number])[address], [address] [place] [address]WAK (RBC) [Entitic mass] 32.5 viJlnqzf94-86LwaCwckds [facility] HospitalComment on above:Performed By: #### 4679-7, , CBCA, CMP ####[facility] ([id number])[address], [address] [place] [address]DJQB (RBC) [Mass/Vol]33.1 g/pTRycerh76-21 [facility] HospitalComment on above:Performed By: #### 4679-7, , CBCA, CMP ####[facility] ([id number])[address], [address] [place] [address]JWQ (RBC) [Entitic vol]98 sEDkbsuj07-966QbuBjsmla [place] HospitalComment on above:Performed By: #### 4679-7, 53826-4, CBCA, CMP ####[facility] ([id number])[address], [address] [place] [address]Ycgttigco (Bld) [#/Vol]0.6 10*3/uLNormal0-0.9[facility] Comment on above:Performed By: #### 4679-7, 31405-0, CBCA, CMP ####[facility] ([id number])[address], [address] [place] [address] Monocytes/100 WBC (Bld)8.2 %NormalProMedica Ward HospitalComment on above: Performed By: #### 4679-7, 17983-6, CBCA, CMP ####[facility] ([id number])[address], [place] [address]Fcdtruqlagl/100 WBC (Bld) 58.0 %NormalProMedica Ward HospitalComment on above:Performed By: #### 4679-7, , CBCA, CMP ####[facility] ([id number])[address], [place] [address]Noutkacs mean volume (Bld) [Entitic vol]10.1 fLNormal 7-12[facility] HospitalComment on above:Performed By: #### 4679-7, , CBCA, CMP ####[facility] ([id number])[address], [address] [place] [address]Bzqhhejhp (Bld) [#/Vol]154 10*3/yBTbcsls596-110UdiCanmjj [facility] HospitalComment on above:Performed By: #### 4679-7, , CBCA, CMP ####[facility] ([id number])[address], [address] [place] [address]GTG COUNT2.21 X10E12/LLow4.10-5.70[facility] HospitalComment on above:Performed By: #### 4679-7, , CBCA, CMP ####[facility] ([id number])[address], [address] [place] [address]PZY (Bld) [#/Vol]7.2 10*3/uLNormal4.0-11.0Pro[facility] Ward HospitalComment on above:Performed By: #### 4679-7, , CBCA, CMP ####[facility] ([id number])[address], [place] [address]WIWDZIBDFQQBH METABOLIC PANELon 72-35-9426Kfuucji [Mass/Vol]2.8 g/dLLow3.2-5.3PMer[facility] Comment on above:Performed By: #### 4679-7, 22528-4, CBCA, CMP ####[facility] ([id number])[address], [address], [place] [address]AWU [Catalytic activity/Vol]163 U/EEblo69-520TvdJograw [place] HospitalComment on above:Performed By: #### 4679-7, 99646-5, CBCA, CMP ####[facility] ([id number])[address], [place] [address]SKE [Catalytic activity/Vol]16 U/LNormal0-40[facility] HospitalComment on above:Performed By: #### 4679-7, 50266-8, CBCA, CMP ####[facility] ([id number])[address], [address], [place] [address]Aejvl gap [Moles/Vol]6 mmol/LNormal5-15[facility] HospitalComment on above:Performed By: #### 4679-7, , CBCA, CMP ####[facility] ([id number])[address], [address], [place] [address]PHA [Catalytic activity/Vol]22 U/LNormal0-41 [facility] HospitalComment on above:Performed By: #### 4679-7, 51505-3, CBCA, CMP ####[facility] ([id number])[address], [address], [place] [address]Ioefgknwo [Mass/Vol]0.8 mg/dLNormal0.3-1.2PMercy Health St. Anne HospitalComment on above:Performed By: #### 4679-7, 78260-3, CBCA, CMP ####[facility] ([id number])[address] [address], [place] [address]Vmjjtbn [Mass/Vol]9.1 mg/dLNormal8.5-10.5PMercy Health St. Anne HospitalComment on above:Performed By: #### 4679-7, , CBCA, CMP ####[facility] ([id number])[address], [address], [place] [address]Fouvzvdr [Moles/Vol]106 mmol/MFlnqec37-461RryRebiud [place] HospitalComment on above: Performed By: #### 4679-7, , CBCA, CMP ####[facility] ([id number])[address] [address], [place] [address]HC6 [Moles/Vol]29 mmol/L Sgesxd87-37OorFjuhad [place] HospitalComment on above:Performed By: #### 4679-7, , CBCA, CMP ####[facility] ([id number])[address] [address] [place] [address]Aabantanyv [Mass/Vol]0.85 mg/dLNormal0.60-1.30ProAkron Children'S HospitalComment on above:Result Comment: METHOD TRACEABLE TO IDMS STANDARDPerformed By: #### 4679-7, , CBCA, CMP ####[facility] ([id number])[address] [address], [place] [address]zXSE (CKD-EPI) NON-RACE DEPENDENT>90Normal>59[facility] HospitalComment on above:Result Comment: Reported eGFR is based on theCKD-EPI 2020 equation that doesnot use a race coefficient.Performed By: #### 4679-7, , CBCA, CMP ####[facility] ([id number])[address] [address], [place] [address] Glucose [Mass/Vol]95 mg/bFSqoblr02-39HexMqylnu [place] HospitalComment on above: Performed By: #### 4679-7, 91407-0, CBCA, CMP ####[facility] ([id number])[address], [address] [place] [address]Gymxfazai [Moles/Vol]4.2 mmol/LNormal3.5-5.0[facility] HospitalComment on above:Performed By: #### 4679-7, 67126-8, CBCA, CMP ####[facility] ([id number])[address], [place] [address]Ipkampr [Mass/Vol]5.8 g/dLLow6.0-8.0 [facility] HospitalComment on above:Performed By: #### 4679-7, 01979-8, CBCA, CMP ####[facility] ([id number])[address], [address] [place] [address]Xsehlg [Moles/Vol]141 mmol/FSmcbto161-047UehTecyxr [place] HospitalComment on above:Performed By: #### 4679-7, , CBCA, CMP ####[facility] ([id number])[address], [address] [place] [address] 95917Oely nitrogen [Mass/Vol]8 mg/dLNormal5-27[facility] HospitalComment on above:Performed By: #### 4679-7, 62149-4, CBCA, CMP ####[facility] ([id number])[address], [address] [place] [address] 45554Dmxghexb Pathology Blood Smear Reviewon 61-50-7441Jafhtzbj Pathology Blood Smear Review NormalProAkron Children'S HospitalComment on above:Result Comment: [facility] [address] [place] [address] Clinical Pathology ReportPatient Name:BRIAN MANDEL:1950 (Age: 73)Gender:MTaken:10/27/2023eported:10/28/2023hysician(s):Matt Reese MD ([phone])Copy To: Rec. #:[id number]: #[id number] Pathologic DiagnosisPeripheral blood smear:-Normochromic normocytic anemia with moderate anisocytosis (see comment)-Morphologically unremarkable leukocytes and plateletsComment Comment: The etiology of the anemia is not evident from the peripheral smear morphology. Lack of polychromasia suggests a hypoproliferative process. There is no morphologic evidence of hemolysis. The most common cause of normochromic normocytic anemia is anemia of chronic disease/chronic inflammation. The differential diagnosis may include e.g. marrow suppression by drug/toxin/neoplasm, renal insufficiency, liver disease, endocrine disease, early iron or B12/folate deficiency, primary marrow disorder, etc. Report Electronically Signed Out10/28/2023sienna Hector MDInterpretation performed at [employer], [address] [place] [address], License number: [id number].Clinical QnxwowlV71.BLOOD SMEAR CHAO [facility] (10/27/2023 0439): WBC: 7.2 x 10E9/L. RBC: 2.21 x 10E12/L. Hgb: 7.2 g/dL. Platelets: 154x 10E9/L. MCV: 98 fL. RDW: 18.7%.Automated differential: Neutrophils: 4.2 x 10E9/L. Lymphocytes: 2.0 x 10E9/L. Monocytes: 0.6 x 10E9/L. Eosinophils: 0.4 x 10E9/L. Basophils: 0.1 x 10E9/L.Blood smear:WBC: Normal in number and show normal differential count and maturation.RBC: Decreased in number andare normochromic and normocytic with significant anisocytosis. Rouleaux formation is not seen.Platelets: Normal in number and within normal limits and morphology.Specimen(s) Received Blood Smear ReviewFee Codes(s):1; 05583Glescks Glucometer (BldC) [Mass/Vol]on 99-85-3394Lkcsoyz [Mass/Vol]128 mg/iJBlfu16-10MvxWyexfjAkron Children'S HospitalGlucose [Mass/Vol]211 mg/pRLrse63-62 [facility] CenterGlucose [Mass/Vol]94 mg/bEMhuylz57-64BqwGvxikh [facility] HospitalHeparin unfractionated Chromogenic method Qn (PPP)on 73-71-4244PVFD XA UFH1.28 IU/mLCritically high0.30-0.70[facility] HospitalComment on above: Result Comment: Optimal time for testing is 6 hrs post dosageThis test is specific for monitoring patientson UFH, and is not recommended for use withother Anti-Xa medications.Performed By: #### 77372-2, 3274-8 ####[facility] ([id number])[address] [address]FTZX XA UFH1.10 IU/mLCritically high0.30-0.70St. [facility]'s HospitalComment on above:Result Comment: Optimal time for testing is 6 hrs post dosageThis test is specific for monitoring patientson UFH, and is not recommended for use withother Anti-Xa medications.Performed By: #### 3274-8 ####[facility] ([id number])[address] 05342VRCPLVYUMjg 10-27-2023 Magnesium [Mass/Vol]2.9 mg/dLHigh1.8-2.6[facility] HospitalComment on above:Performed By: #### 95516-9, 3274-8 ####[facility] ([id number])[address] [address]Ubqyvqlyp [Mass/Vol]1.6 mg/dLLow1.8-2.6[facility] HospitalComment on above:Performed By: #### 4679-7, 76199-5, CBCA, CMP ####[facility] ([id number])[address] [place] [address], [address] [place] [address] 64557Yvxikpfeozg review Pathologist comment (Flavio) [Interp]on 06-41-3799GHNEN REVIEWNOTENormalProMedica Fulton County Health CenterComment on above:Result Comment: [employer] [facility] [address] [place] [address] Clinical Pathology ReportPatient Name:BRIAN MANDEL:1950 (Age:73)Gender:MTaken:10/27/2023eported:10/28/2023hysician(s):Matt Bray MD ([phone])Copy To: Rec.#:[id number]: #[id number] Pathologic DiagnosisPeripheral blood smear:-Normochromic normocytic anemia with moderate anisocytosis (seecomment)-Morphologically unremarkable leukocytes and plateletsCommentComment: The etiology of theanemia is not evident from theperipheral smear morphology. Lack of polychromasia suggests ahypoproliferative process. There is no morphologic evidence ofhemolysis. The most common cause of normochromic normocytic anemiais anemia of chronic disease/chronic inflammation. The differentialdiagnosis mayinclude e.g. marrow suppression by drug/toxin/neoplasm,renal insufficiency, liver disease, endocrine disease, early iron orB12/folate deficiency, primary marrow disorder, etc. Report ElectronicallySigned Outrd/4Rsienna Hector MDInterpretation performed at [employer], [address] [place] [address], License number: [id number].Clinical KozxcieN06.BLOOD SMEAR EVALUATIONCBC (10/27/2023 0439): WBC: 7.2 x 10E9/L. RBC: 2.21 x 10E12/L. Hgb:7.2 g/dL. Platelets: 154 x 10E9/L. MCV: 98 fL. RDW: 18.7%.Automated differential: Neutrophils: 4.2 x 10E9/L. Lymphocytes:2.0 x 10E9/L. Monocytes: 0.6 x 10E9/L. Eosinophils: 0.4 x 10E9/L. Basophils: 0.1 x 10E9/L.Blood smear:WBC: Normal in number and show normal differential count andmaturation.RBC: Decreased in number and are normochromic and normocytic withsignificant anisocytosis. Rouleaux formation is not seen.Platelets: Normal in number and within normal limits and morphology.Specimen(s) ReceivedBlood Smear ReviewFee Codes(s):1; 00350 Reticulocytes/100 RBC (Bld)on 34-56-7692JEYWABCZUJHC COUNT2.6 %High0.4-2.2 [facility] HospitalComment on above:Performed By: #### 4679-7, 60207-4, CBCA, CMP ####[facility] ([id number])[address] [address] [place] [address] 63399CCUILIXXBXmv 15-84-8587Tjgsihqbn Ql (U)NegativeNormalNEG [facility] HospitalComment on above:Performed By: #### UA ####[facility] ([id number])[address] [address] [place] [address] 11559 BLOOD/HGBMODERATEAbnormalNEGProRegional Medical Centerca Paynesville HospitalComment on above:Performed By: #### UA ####[facility] ([id number])[address] [address] [place] [address] 03750Fivhk (U)YELLOWNormalYELLOWProMedica Paynesville HospitalComment on above:Performed By: #### UA ####[facility] ([id number])[address] [address] [place] [address] 45212Moikwdr Ql (U)NegativeNormalNEGProRegional Medical Centerca Paynesville HospitalComment on above:Performed By: #### UA ####[facility] ([id number])[address] [address] [place] [address] 47704Icwbxha Ql (U) NegativeNormalNEGProMedica Ward HospitalComment on above:Performed By: #### UA ####[facility] ([id number])[address], [address] [place] [address] 99357Mxgwnzaou esterase Test strip Ql (U)TraceAbnormalNEGProMedica Ward HospitalComment on above:Performed By: #### UA ####[facility] ([id number])[address], [address] [place] [address] 00789NYDLPDLGTDSBFYmztbmnpZALY [facility] HospitalComment on above:Performed By: #### UA ####[facility] ([id number])[address] [facility], [address] [place] [address] 56862 Nitrite Ql (U)NegativeNormalNEGProMedica Awrd HospitalComment on above: Performed By: #### UA ####[facility] ([id number])[address], [address] [place] [address] 69154wG (U)6.5 [pH]Normal5.0-8.5[facility] HospitalComment on above:Performed By: #### UA ####[facility] ([id number])[address], [address] [place] [address] 60093Arbgmle Ql (U)NegativeNormal NEGProMedica Ward HospitalComment on above:Performed By: #### UA ####[facility] ([id number])[address], [address] [place] [address] 70069 R.B.CELLS10 /hpfHigh0-5[facility] HospitalComment on above:Performed By: #### UA ####[facility] ([id number])[address], [address] [place] [address] 34065Atgqpbry gravity (U) [Rel density]1.093Cpxzfq1.003-1.035 [facility] HospitalComment on above:Performed By: #### UA ####[facility] ([id number])[address], [address] [address] SQUAMOUS EPITHELIUM3 /hpfNormal0-5PMercy Health St. Anne HospitalComment on above: Performed By: #### UA ####[facility] ([id number])[address], [address], [place] [address]LIERTEPFIEWFGFGkvcysMYLLAJavKypdhb [place] HospitalComment on above:Performed By: #### UA ####[facility] ([id number])[address], [address], [place] [address]Fgltdanzti dipstick W Reflex Microscopic panel (U)URINE RECEIVED WITHOUT PRESERVATIVE-DELAYS IN TRANSPORT MAY AFFECT RESULTS.INTERPRET WITH CAUTION AND CLINICAL CORRELATION IS RECOMMENDED. NormalProAkron Children'S HospitalComment on above:Performed By: #### UA ####[facility] ([id number])[address], [address] [place] [address] 37768 Urobilinogen (U) [Mass/Vol]mg/dLNormal<1.1PMercy Health St. Anne HospitalComment on above:Performed By: #### UA ####[facility] ([id number])[address] [address] [place] [address] 93030M.B.CELLS11 /hpfHigh0-5PMercy Health St. Anne HospitalComment on above:Performed By: #### UA ####[facility] ([id number])[address], [address], [place] [address]OCC AND AUTO DIFFon 36-95-2307THBCDJHH BASOPHIL0.1 X10E9/LNormal0.0-0.2PMercy Health St. [facility] Hospital Comment on above:Performed By: #### 2276-4, 35189-6, 2284-8, FEPR, CBCA, CMP, 2131-10 ####[facility] ([id number])[address], [address] [place] [address] 76983WXOBTWIA NEUTROPHIL4.3 X10E9/LNormal1.5-6.6ProAkron Children'S HospitalComment on above:Performed By: #### 6-4, 14890-7, 2283-09, FEPR, CBCA, CMP, 2131-10 ####[facility] ([id number])[address], [address], [place] [address]Rsujxnjtw/100 WBC (Bld)1.3 %NormalProCommunity Memorial Hospital Hospital Comment on above:Performed By: #### 6-4, 82493-2, 2283-09, FEPR, CBCA, CMP, 2131-10 ####[facility] ([id number])[address], [address] [place] [address] 36929Vlwjjzjcioj (Bld) [#/Vol]0.4 10*3/uLNormal0.0-0.4ProAkron Children'S HospitalComment on above:Performed By: #### 6-4, , 2283-09, FEPR, CBCA, CMP, 2131-10 ####[facility] ([id number])[address], [address] [place] [address] 80977Mrhaxqmjhzy/100 WBC (Bld)5.4 %Normal ProMUniversity Hospitals Conneaut Medical CenterComment on above:Performed By: #### 6-4, 73261-4, 2283-09, FEPR, CBCA, CMP, 2131-10 ####[facility] ([id number])[address], [address] [place] [address] 82385Xpiifcmvmos distribution width (RBC) [Ratio]18.2 %High11.5-15.0ProAkron Children'S HospitalComment on above: Performed By: #### 6-4, 27007-6, 2283-09, FEPR, CBCA, CMP, 2131-10 ####[facility] ([id number])[address], [address] [place] [address] 43553 Hematocrit (Bld) [Volume fraction]22.4 %Scc34-06BtpYtcrbbAkron Children'S HospitalComment on above:Performed By: #### 6-4, 00298-0, 2283-09, FEPR, CBCA, CMP, 2131-10 ####[facility] ([id number])[address], [address] [place] [address] 38756Gpsctfphoa (Bld) [Mass/Vol]7.7 g/dLLow13.0-17.0[facility] Comment on above:Performed By: #### 6-4, 36224-4, 2283-09, FEPR, CBCA, CMP, 2131-10 ####[facility] ([id number])[address], [address] [place] [address] 35052Sjjixmxorqn (Bld) [#/Vol]2.0 10*3/uLNormal1.0-3.5[facility] HospitalComment on above:Performed By: #### 6-4, 87227-4, 2283-09, FEPR, CBCA, CMP, 2131-10 ####[facility] ([id number])[address], [address] [place] [address] 54907Cxomqxkeobj/100 WBC (Bld)27.9 %Normal ProMUniversity Hospitals Conneaut Medical CenterComment on above:Performed By: #### 6-4, 28752-1, 2283-09, FEPR, CBCA, CMP, 2131-10 ####[facility] ([id number])[address], [address] [place] [address] 73582XMS (RBC) [Entitic mass] 33.4 fdTyfpwz13-59CtbJsnanm [place] HospitalComment on above:Performed By: #### 6-4, 64431-4, 8, FEPR, CBCA, CMP, 2131-10 ####[facility] ([id number])[address], [address], [place] [address]QBNF (RBC) [Mass/Vol] 34.2 g/rFKofhpy14-11FgaFzfvef Ward HospitalComment on above:Performed By: #### 2276-4, 64980-8, 228-8, FEPR, CBCA, CMP, 2131-10 ####[facility] ([id number])[address], [address], [place] [address]CFD (RBC) [Entitic vol] 98 zHOuamie67-153XxiQlleno Wrad HospitalComment on above:Performed By: #### 2276-4, 04810-3, 2283-8, FEPR, CBCA, CMP, 2131-10 ####[facility] ([id number])[address], [address] [place] [address] 19053Ememclnat (Bld) [#/Vol] 0.5 10*3/uLNormal0-0.9Pro[facility] HospitalComment on above:Performed By: #### 2276-4, 95015-6, 2283-8, FEPR, CBCA, CMP, 2131-10 ####[facility] ([id number])[address], [address] [place] [address] 04122Jbcecxsjm/100 WBC (Bld)6.3 %NormalProMedica Ward HospitalComment on above:Performed By: #### 2276-4, 40600-0, 2283-8, FEPR, CBCA, CMP, 2131-10 ####[facility] ([id number])[address], [address] [place] [address] 82875Ofzsjlpjphi/100 WBC (Bld)59.1 %NormalProMedica Ward HospitalComment on above:Performed By: #### 2276-4, 53994-8, 228-8, FEPR, CBCA, CMP, 2131-10 ####[facility] ([id number])[address], [address] [place] [address] 13664Zmcjmkck mean volume (Bld) [Entitic vol]10.0 fLNormal7-12ProMedC[facility] HospitalComment on above: Performed By: #### 2276-4, 40082-9, 2283-8, FEPR, CBCA, CMP, 2131-10 ####[facility] ([id number])[address], [address] [place] [address] 69846 Platelets (Bld) [#/Vol]156 10*3/kRFuzjne470-280DmtYroqde [facility]nesville HospitalComment on above:Performed By: #### 6-4, 37231-9, 2283-09, FEPR, CBCA, CMP, 2131-10 ####[facility] ([id number])[address], [address] [place] [address] 63145SFH COUNT2.29 X10E12/LLow4.10-5.70[facility] HospitalComment on above:Performed By: #### 6-4, 13053-0, 2283-09, FEPR, CBCA, CMP, 2131-10 ####[facility] ([id number])[address], [address] [place] [address] 66220SYM (Bld) [#/Vol]7.2 10*3/uLNormal4.0-11.0[facility] HospitalComment on above:Performed By: #### 6-4, 96080-9, 2283-09, FEPR, CBCA, CMP, 2131-10 ####[facility] ([id number])[address], [address] [place] [address] 20668OUAFFRCRSSTZC METABOLIC PANELon 29-54-4813Bgrotwm [Mass/Vol]2.8 g/dLLow 3.2-5.3ProMedCherrington Hospital HospitalComment on above:Performed By: #### 2276-4, 70225-2, 2283-8, FEPR, CBCA, CMP, 2131-10 ####[facility] ([id number])[address], [address], [place] [address]STN [Catalytic activity/Vol]150 U/KAdoq85-995XawKqqvxb [place] HospitalComment on above: Performed By: #### 2276-4, 05241-8, 2283-8, FEPR, CBCA, CMP, 2131-10 ####[facility] ([id number])[address], [address], [place] [address]YPF [Catalytic activity/Vol]15 U/LNormal0-40ProMediKing's Daughters Medical Center Ohio HospitalComment on above:Performed By: #### 6-4, 93364-5, 8, FEPR, CBCA, CMP, 2131-10 ####[facility] ([id number])[address], [address], [place] [address]Bjbid gap [Moles/Vol]6 mmol/LNormal5-15[facility] HospitalComment on above:Performed By: #### 6-4, 26390-4, 8, FEPR, CBCA, CMP, 2131-10 ####[facility] ([id number])[address], [address], [place] [address]BLX [Catalytic activity/Vol]20 U/LNormal0-41[facility] Hospital Comment on above:Performed By: #### 2276-4, 23851-4, 8, FEPR, CBCA, CMP, 2131-10 ####[facility] ([id number])[address], [address], [place] [address]Fjiqblsdk [Mass/Vol]0.8 mg/dLNormal0.3-1.2[facility] HospitalComment on above:Performed By: #### 6-4, 56539-9, 2283-8, FEPR, CBCA, CMP, 2131-10 ####[facility] ([id number])[address], [address], [place] [address]Azeahcz [Mass/Vol]9.3 mg/dLNormal8.5-10.5PMercy Health St. Anne HospitalComment on above:Performed By: #### 2276-4, 81937-6, 8, FEPR, CBCA, CMP, 2131-10 ####[facility] ([id number])[address], [address], [place] [address]Dhndeplc [Moles/Vol]105 mmol/CQfctjw35-652BqnSbsrbr [place] HospitalComment on above:Performed By: #### 6-4, 27851-5, 2283-09, FEPR, CBCA, CMP, 2131-10 ####[facility] ([id number])[address] [address], [place] [address]JK0 [Moles/Vol]30 mmol/QJtypma12-65NvsWyahuhMercy Health St. [facility] Hospital Comment on above:Performed By: #### 2276-4, 46038-8, 8, FEPR, CBCA, CMP, 2131-10 ####[facility] ([id number])[address] [address], [place] [address]Yareetocgp [Mass/Vol]0.81 mg/dLNormal0.60-1.30ProAkron Children'S HospitalComment on above:Result Comment: METHOD TRACEABLE TO IDMS STANDARDPerformed By: #### 2276-4, 25975-1, 8, FEPR, CBCA, CMP, 2131-10 ####[facility] ([id number])[address] [address], [place] [address]rFFE (CKD-EPI) NON-RACE DEPENDENT>90Normal>59[facility] Comment on above:Result Comment: Reported eGFR is based on theCKD-EPI 2020 equation that doesnot use a race coefficient.Performed By: #### 2276-4, , 2283-09, FEPR, CBCA, CMP, 2131-10 ####[facility] ([id number])[address], [address], [place] [address]Skrsbrd [Mass/Vol]95 mg/dL Gesrjb36-29NdfJgeibh [place] HospitalComment on above:Performed By: #### 6-4, , 2283-09, FEPR, CBCA, CMP, 2131-10 ####[facility] ([id number])[address], [place] [address]Yhsvafeji [Moles/Vol]4.4 mmol/LNormal3.5-5.0Pro[facility] HospitalComment on above:Performed By: #### 6-4, , 2283-09, FEPR, CBCA, CMP, 2131-10 ####[facility] ([id number])[address], [address], [place] [address]Jjrdrxx [Mass/Vol]6.0 g/dLNormal6.0-8.0[facility] HospitalComment on above:Performed By: #### 6-4, , 2283-09, FEPR, CBCA, CMP, 2131-10 ####[facility] ([id number])[address], [address], [place] [address]Tkttqv [Moles/Vol]141 mmol/WEcllpi483-145EelAyrnfn [place] HospitalComment on above:Performed By: #### 6-4, , 2283-09, FEPR, CBCA, CMP, 2131-10 ####[facility] ([id number])[address], [address], [place] [address]Abpb nitrogen [Mass/Vol]7 mg/dLNormal5-27[facility] HospitalComment on above:Performed By: #### 6-4, , 2284-8, FEPR, CBCA, CMP, 2131-10 ####[facility] ([id number])[address], [address] [place] [address] 377[address]VGHMV OCCULT BLOODon 06-31-0169Dldpfvgcqb.gastrointestinal Ql (Stl)NegativeNormalNEGProMedica Paynesville HospitalComment on above:Performed By: #### 2335-8 ####[facility] ([id number])[address] [facility], [address] [place] [address]RQJMFNIWph 93-52-9293Sxmtlske [Mass/Vol]839 ng/qBDfvv08-923ZcwWlxlcf [facility] HospitalComment on above:Performed By: #### 2276-4, 81377-5, 2283-09, FEPR, CBCA, CMP, 2131-10 ####[facility] ([id number])[address] [facility], [address] [place] [address]Ybthgz [Mass/Vol]on 94-40-9911WGUUH ACID12.2 ng/mLNormal>5.8Pro[facility] HospitalComment on above:Result Comment: NEW REFERENCE RANGEPerformed By: #### 2276-4, 81555-7, 2283-09, FEPR, CBCA, CMP, 2131-10 ####[facility] ([id number])[address] [facility] [address] [place] [address]Qonskjc Glucometer (BldC) [Mass/Vol]on 26-38-5191Rssgpbo [Mass/Vol]106 mg/eCSdyb97-61 [facility] HospitalGlucose [Mass/Vol]139 mg/gDIhte34-96SioPpfzop Ward HospitalGlucose [Mass/Vol]128 mg/sNQxta27-63NktXywklg Ward HospitalGlucose [Mass/Vol]96 mg/hPNpyexc80-91KwiOedhmx Ward HospitalHeparin unfractionated Chromogenic method Qn (PPP)on 10-27-1827FTWO XA UFH0.83 IU/mLHigh0.30-0.70 [facility] HospitalComment on above:Result Comment: Optimal time for testing is 6 hrs post dosageThis test is specific for monitoring patientson UFH, and is not recommended for use withother Anti-Xa medications.Performed By: #### 3274-8 ####[facility] ([id number])0 [facility], [address] [place] [address] 79244IWLQ XA UFH0.95 IU/mLCritically high0.30-0.70ProAkron Children'S HospitalComment on above:Result Comment: Optimal time for testing is 6 hrs post dosageThis test is specific for monitoring patientson UFH, and is not recommended for use withother Anti-Xa medications.Performed By: #### 3274-8 ####[facility] ([id number])0 [facility] [address] [place] [address] 19486NEDO XA UFH0.57 IU/mLNormal0.30-0.70ProAkron Children'S HospitalComment on above:Result Comment: Optimal time for testing is 6 hrs post dosageThis test is specific for monitoring patientson UFH, and is not recommended for use withother Anti-Xa medications.Performed By: #### 3274-8 ####[facility] ([id number])0 [facility] [address] [place] [address] 25098IPQJ PROFILEon 10-26-2023 Iron [Mass/Vol]110 ug/mZMggpfe46-802UuhWcdlah [place] HospitalComment on above: Performed By: #### 2276-4, 57548-0, 2283-09, FEPR, CBCA, CMP, 2131-10 ####[facility] ([id number])0 [facility] [address] [place] [address] 80198VXQV AUIDNCR186 ug/oAKuq826-760ZrpOuemszAkron Children'S HospitalComment on above:Performed By: #### 2276-4, 57957-7, 2283-09, FEPR, CBCA, CMP, 2131-10 ####[facility] ([id number])2130 [facility], [address], [place] [address]LAAS SATURATION 49 % KMDPMDBCMPBgaryv70-95JmqHwdacq [place] HospitalComment on above:Performed By: #### 2276-4, 59261-5, 8, FEPR, CBCA, CMP, 2131-10 ####[facility] ([id number])0 [address], [address] [place] [address] 09936IFNJTRQSLdt 29-69-6296Opeexcvwy [Mass/Vol]2.2 mg/dLNormal1.8-2.6[facility] Comment on above:Performed By: #### 2276-4, 89217-5, 2283-09, FEPR, CBCA, CMP, 2131-10 ####[facility] ([id number])0 [address], [address] [place] [address] 82531HJWDFUJ B12on 81-60-5099Pfjmojist (Vitamin B12) [Mass/Vol]448 pg/wGXjjcsq394-798NpoZezxuv [place] HospitalComment on above:Performed By: #### 2276-4, 08370-0, 8, FEPR, CBCA, CMP, 2131-10 ####[facility] ([id number])[address], [address] [place] [address] 77421Odcs XA unfractionated heparinon 51-88-5950Jznrfvn unfractionated Chromogenic method Qn (PPP)0.26[facility] HospitalComment on above:Optimal time for testing is 6 hrs post dosage This test is specific for monitoring patients on UFH, and is not recommended for use with other Anti-Xa medications. Heparin unfractionated Chromogenic method Qn (PPP)0.07[facility] Comment on above:Optimal time for testing is 6 hrs post dosage This test is specific for monitoring patients on UFH, and is not recommended for use with other Anti-Xa medications. CBC AND AUTO DIFFon [id number] BASOPHIL0.2 X10E9/LNormal0.0-0.2PThe Bellevue HospitalComment on above:Performed By: #### 2823-3 #### [facility] ([id number]) [address] [place], [place] [address]YPMAHTXM NEUTROPHIL3.9 X10E9/LNormal1.5-6.6ProSelect Medical Specialty Hospital - Cleveland-FairhillComment on above:Performed By: #### 2823-3 #### [facility] ([id number]) [address] [place], [place] [address]Mgckuoxvv/100 WBC (Bld)2.4 %NormalParkwood Hospital Comment on above:Performed By: #### 2823-3 #### [facility] ([id number]) [address] [place], [place] [address]Gnszvxdmovh (Bld) [#/Vol]0.4 10*3/uLNormal0.0-0.4ProSelect Medical Specialty Hospital - Cleveland-FairhillComment on above:Performed By: #### 2823-3 #### [facility] ([id number]) [address] [place], [place] [address]Zyjrukprseh/100 WBC (Bld)5.9 %NormalParkwood Hospital Comment on above:Performed By: #### 2823-3 #### [facility] ([id number]) [address] [place], [place] [address]Tmeuhojrdrf distribution width (RBC) [Ratio]18.3 %High11.5-15.0 ProMSycamore Medical CenterComment on above:Performed By: #### 2823-3 #### [facility] ([id number]) [address] [place], [place] [address]Qfnvyiunty (Bld) [Volume fraction]22.9 %Dnp45-04VadAgmbcoSelect Medical Specialty Hospital - Cleveland-FairhillComment on above:Performed By: #### 2823-3 #### [facility] ([id number]) [address] [place], [place] [address]Eopoyyuqkk (Bld) [Mass/Vol]7.6 g/dLLow13.0-17.0ProSelect Medical Specialty Hospital - Cleveland-FairhillComment on above:Performed By: #### 2823-3 #### [facility] ([id number]) [address] [place], [place] [address]Ipxqdsyubkg (Bld) [#/Vol]1.6 10*3/uLNormal1.0-3.5ProMedica [facility] Lincoln HospitalComment on above:Performed By: #### 2823-3 #### [facility] ([id number]) [address] [place], [place] [address]Bqjnptzunuh/100 WBC (Bld)24.8 %NormalParkwood Hospital Comment on above:Performed By: #### 2823-3 #### [facility] ([id number]) [address] [place], [place] [address]DCT (RBC) [Entitic mass]32.8 vyRueony76-46VowDzybeoSelect Medical Specialty Hospital - Cleveland-FairhillComment on above:Performed By: #### 2823-3 #### [facility] ([id number]) [address] [place], [place] [address]KEIQ (RBC) [Mass/Vol]33.1 g/cYFqswxa85-30ImdMwgwbf Baypark HospitalComment on above:Performed By: #### 2823-3 #### [facility] ([id number]) [address] [place], [place] [address]HEF (RBC) [Entitic vol]99 jTJmdnlc43-785SqzAacvjq [facility] HospitalComment on above:Performed By: #### 2823-3 #### [facility] ([id number]) [address] [place], [place] [address]Rnyfnzvtb (Bld) [#/Vol]0.5 10*3/uLNormal0-0.9ProRegional Medical Centerca [facility] HospitalComment on above:Performed By: #### 2823-3 #### [facility] ([id number]) [address] [place], [place] [address]Ligrltsrw/100 WBC (Bld)7.2 %NormalParkwood Hospital Comment on above:Performed By: #### 2823-3 #### [facility] ([id number]) [address] [place], [place] [address]Lmjfrrhevcg/100 WBC (Bld)59.7 %NormalParkwood Hospital Comment on above:Performed By: #### 2823-3 #### [facility] ([id number]) [address] [place], [place] [address]Dlcigbcn mean volume (Bld) [Entitic vol]10.0 fLNormal7-12 Parkwood HospitalComment on above:Performed By: #### 2823-3 #### [facility] ([id number]) [address] [place], [place] [address]Gnuwlcncr (Bld) [#/Vol]152 10*3/xNGfwhgh502-631SkuCztzohParkwood HospitalComment on above:Performed By: #### 2823-3 #### [facility] ([id number]) [address] [place], [place] [address]FTE COUNT2.32 X10E12/LLow4.10-5.70[facility] Comment on above:Performed By: #### 2823-3 #### [facility] ([id number]) [address] [place], [place] [address]HKA (Bld) [#/Vol]6.6 10*3/uLNormal4.0-11.0Parkwood HospitalComment on above:Performed By: #### 2823-3 #### [facility] ([id number]) [address] [place], [place] [address]RHN auto differentialon 54-91-3374Nckovzris (Bld) [#/Vol]0.2 10*3/uLProMedica Health SystemBasophils/100 WBC (Bld)2.4 %[facility] Hospitaledica Health SystemEosinophils (Bld) [#/Vol]0.4 10*3/uLProMedica Health SystemEosinophils/100 WBC (Bld)5.9 %ProMedica Health SystemErythrocyte distribution width (RBC) [Ratio]18.3 %High11.5 - 15.0 %ProMedica Health SystemHematocrit (Bld) [Volume fraction]22.9 %Low39 - 49 %[facility] Medical CenterHemoglobin (Bld) [Mass/Vol]7.6 g/dLLow13.0 - 17.0 g/dLOhioHealth Grant Medical CenterInterpretation and review of laboratory resultsAbnormalOhioHealth Grant Medical CenterLymphocytes (Bld) [#/Vol]1.6 10*3/uLOhioHealth Grant Medical CenterLymphocytes/100 WBC (Bld)24.8 %[facility]field HospitalH (RBC) [Entitic mass]32.8 pg27 - 34 [facility] HospitalMCHC (RBC) [Mass/Vol]33.1 g/dL32 - 36 g/dLOhioHealth Grant Medical CenterMCV (RBC) [Entitic vol]99 fL80 - 100 [facility] CenterMonocytes (Bld) [#/Vol]0.5 10*3/uLOhioHealth Grant Medical CenterMonocytes/100 WBC (Bld)7.2 %[facility] Medical CenterNeutrophils (Bld) [#/Vol]3.9 10*3/uLOhioHealth Grant Medical CenterNeutrophils/100 WBC (Bld)59.7 % [facility] Medical CenterPlatelet mean volume (Bld) [Entitic vol]10.0 fL7 - 12 fL [facility] Medical CenterPlatelets (Bld) [#/Vol]152 10*3/[facility] RBC (Bld) [#/Vol]2.32 10*6/[facility] HospitalWBC corrected for nucl RBC Auto (Bld) [#/Vol]6.6[facility] COMPREHENSIVE METABOLIC PANELon 87-17-3743Iegremw [Mass/Vol]2.8 g/dLLow3.2-5.3 Parkwood HospitalComment on above:Performed By: #### 2823-3 #### [facility] ([id number]) [address] [place], [place] [address]WKM [Catalytic activity/Vol]152 U/DWlyu59-102ZblNvggblParkwood HospitalComment on above:Performed By: #### 2823-3 #### [facility] ([id number]) [address] [place], [place] [address]CPX [Catalytic activity/Vol]23 U/LNormal0-40ProSelect Medical Specialty Hospital - Cleveland-FairhillComment on above:Performed By: #### 2823-3 #### [facility] ([id number]) [address] [place], [place] [address]Ekeym gap [Moles/Vol]7 mmol/LNormal5-15ProSelect Medical Specialty Hospital - Cleveland-FairhillComment on above:Performed By: #### 2823-3 #### [facility] ([id number]) [address] [place], [place] [address]GAD [Catalytic activity/Vol]27 U/LNormal0-41ProSelect Medical Specialty Hospital - Cleveland-FairhillComment on above:Performed By: #### 2823-3 #### [facility] ([id number]) [address] [place], [place] [address]Lxneiwfro [Mass/Vol]1.0 mg/dLNormal0.3-1.2PThe Bellevue HospitalComment on above:Performed By: #### 2823-3 #### [facility] ([id number]) [address] [place], [place] [address]Icpnnas [Mass/Vol]9.0 mg/dLNormal8.5-10.5PThe Bellevue HospitalComment on above:Performed By: #### 2823-3 #### [facility] ([id number]) [address] [place], [place] [address]Roigfnqp [Moles/Vol]106 mmol/NOreruk55-736TvuHzoycwSelect Medical Specialty Hospital - Cleveland-FairhillComment on above:Performed By: #### 2823-3 #### [facility] ([id number]) [address] [place], [place] [address]BH0 [Moles/Vol]28 mmol/UQcbfkw86-34PjoNznimoThe [facility] Hospital Comment on above:Performed By: #### 2823-3 #### [facility] ([id number]) [address] [place], [place] [address]Iayhnarqvr [Mass/Vol]0.93 mg/dLNormal0.70-1.20ProMedica Baypark HospitalComment on above:Result Comment: METHOD TRACEABLE TO IDMS STANDARD Performed By: #### 2823-3 #### [facility] ([id number]) [address] [place], [place] [address]IJF/1.73 sq M.predicted among non-blacks MDRD (S/P/Bld) [Vol rate/Area]86 mL/min/{1.73_m2}Normal>59ProSelect Medical Specialty Hospital - Cleveland-FairhillComment on above:Result Comment: Reported eGFR is based on the CKD-EPI 1 equation that does not use a race coefficient.Performed By: #### 2823-3 #### [facility] ([id number]) [address] [place], [place] [address]Nktiydv [Mass/Vol]108 mg/gDAeux40-47YrsMsmjvvSelect Medical Specialty Hospital - [place] Comment on above:Performed By: #### 2823-3 #### [facility] ([id number]) [address] [place], [place] [address]Ibtsykbrs [Moles/Vol]3.9 mmol/LNormal3.5-5.0ProSelect Medical Specialty Hospital - Cleveland-FairhillComment on above:Performed By: #### 2823-3 #### [facility] ([id number]) [address] [place], [place] [address]Pkaolgo [Mass/Vol]6.5 g/dLNormal6.0-8.0Parkwood HospitalComment on above:Performed By: #### 2823-3 #### [facility] ([id number]) [address] [place], [place] [address]Riistx [Moles/Vol]141 mmol/IUtofkz582-544RhmGbpdxu Baypark HospitalComment on above:Performed By: #### 2823-3 #### [facility] ([id number]) [address] [place], [place] [address]Pztb nitrogen [Mass/Vol]7 mg/dLNormal5-27ProSelect Medical Specialty Hospital - Cleveland-FairhillComment on above:Performed By: #### 2823-3 #### [facility] ([id number]) [address] [place], [place] [address]Zuqcbcjtxqred metabolic panelon 45-18-1565Tpqtjqx [Mass/Vol]2.8 g/dLLow3.2 - 5.3 g/dLProUniversity Hospitals Health System SystemALP [Catalytic activity/Vol]152 U/L High39 - 130 U/[facility] SystemALT No additional P-5'-P [Catalytic activity/Vol]23 U/L0 - 40 U/[facility] SystemAnion gap [Moles/Vol]7 mmol/L5 - 15 mmol/LPrWest Springs Hospital Health SystemAST [Catalytic activity/Vol]27 U/L0 - 41 U/[facility] SystemBilirubin [Mass/Vol]1.0 mg/dL0.3 - 1.2 mg/dL [facility] CenterCalcium [Mass/Vol]9.0 mg/dL8.5 - 10.5 mg/dLOhioHealth Grant Medical CenterChloride [Moles/Vol]106 mmol/L98 - 109 mmol/[facility] SystemCO2 [Moles/Vol]28 mmol/L22 - 32 mmol/[facility] SystemCreatinine [Mass/Vol]0.93 mg/dL0.70 - 1.20 mg/dLOhioHealth Grant Medical CenterComment on above: METHOD TRACEABLE TO IDAL STANDARDeGFR (CKD-EPI)non-race jmqyvtras85- PINF [facility] CenterComment on above: Reported eGFR is based on the CKD-EPI 2020 equation that does not use a race coefficient. Glucose [Mass/Vol]108 mg/bLEuzy80 - 99 mg/dLOhioHealth Grant Medical Center Interpretation and review of laboratory resultsAbnormalProAdams County Regional [facility] Potassium [Moles/Vol]3.9 mmol/L3.5 - 5.0 mmol/[facility] SystemProtein [Mass/Vol]6.5 g/dL6.0 - 8.0 g/dLNovant Health New Hanover Regional Medical Centerodium [Moles/Vol]141 mmol/L134 - 146 mmol/[facility] SystemUrea nitrogen [Mass/Vol]7 mg/dL5 - 27 mg/dLOhioHealth Grant Medical CenterGlucose Glucometer (BldC) [Mass/Vol]on 10-25-2023 Glucose [Mass/Vol]120 mg/sGXufo12-78VmtUlsccqParkwood HospitalGlucose [Mass/Vol] 98 mg/iHMuqorf91-66NfdRjnhin Health SystemProAdams County Regional Medical CenterProRegional Medical Centerca Health SystemGlucose [Mass/Vol]92 mg/dL65 - 99 mg/dLProSelect Medical [facility] SystemGlucose [Mass/Vol]92 mg/fYQoasoq56-35ThoTtheddParkwood HospitalHEMOGLOBINon 57-11-9561Ubncswkzls (Bld) [Mass/Vol]7.5 g/dLLow13.0-17.0 Parkwood HospitalComment on above:Performed By: #### 2823-3 #### [facility] ([id number]) [address] [place], [place] [address]Liswlckdjbbk 87-69-6063Bwzofbjqwt (Bld) [Mass/Vol]7.5 g/dLLow 13.0 - 17.0 g/dLOhioHealth Grant Medical CenterHemoglobin (Bld) [Mass/Vol]on 10-25-2023 Interpretation and review of laboratory resultsAbnoMayo Clinic Health System– Red CedarHeparin unfractionated Chromogenic method Qn (PPP)on 64-71-7862Ttjtgzqeqlyxdh and review of laboratory resultsAbSpooner Health Health SystemANTI XA UFH0.26 IU/mLLow0.30-0.70Parkwood HospitalComment on above:Result Comment: Optimal time for testing is 6 hrs post dosage This test is specific for monitoring patients on UFH, and is not recommended for use with other Anti-Xa medications.Performed By: #### 718-7, PLTCT, PINR, 66588-3 #### [facility] ([id number]) [address] [place], [place] [address]Pzuepyoduepqxz and review of laboratory resultsAbnoFroedtert Menomonee Falls [facility]– [place] SystemANTI XA UFH0.07 IU/mLLow0.30-0.70Parkwood HospitalComment on above:Result Comment: Optimal time for testing is 6 hrs post dosage This test is specific for monitoring patients on UFH, and is not recommended for use with other Anti-Xa medications.Performed By: #### 2823-3 #### [facility] ([id number]) [address] [place], [place] [address]QVUOEOXBNad 91-67-8958Xutjcykqq [Mass/Vol]1.8 mg/dLNormal1.8-2.6 Parkwood HospitalComment on above:Performed By: #### 718-7, PLTCT, PINR, 34804-7 #### [facility] ([id number]) [address] [place], [place] [address]Jhokehajilj 21-28-1265Yoffjlzfw [Mass/Vol]1.8 mg/dL1.8 - 2.6 mg/dLOhioHealth Grant Medical CenterNo Panel Informationon 67-69-6097JkjKytkjgAdena Fayette Medical CenterPLATELET COUNT AND MPVon 85-39-9516Gicceqrd mean volume (Bld) [Entitic vol]9.4 fLNormal7-12PThe Bellevue HospitalComment on above:Performed By: #### 718-7, PLTCT, PINR, 62296-3 #### [facility] ([id number]) [address] [place], [place] [address]Uquihaunx (Bld) [#/Vol]154 10*3/hBFtrsdy253-315NejSygaccParkwood HospitalComment on above:Performed By: #### 718-7, PLTCT, PINR, 16159-8 #### [facility] ([id number]) [address] [place], [place] [address]Gioxirhe counton 45-30-4878Ftfioaxu mean volume (Bld) [Entitic vol]9.4 fL7 - 12 [facility] Medical CenterPlatelets (Bld) [#/Vol]154 10*3/uL [facility] State HospitalAnti XA unfractionated heparinon 76-88-1566Vxknpap unfractionated Chromogenic method Qn (PPP)0.48Ohio[facility] Grant Medical CenterComment on above:Optimal time for testing is 6 hrs post dosage This test is specific for monitoring patients on UFH, and is not recommended for use with other Anti-Xa medications. CBC AND AUTO DIFFon 02-88-7068PYKYQMGS BASOPHIL0.1 X10E9/LNormal0.0-0.2ProMedPremier HealthComment on above:Performed By: #### CBCRachel, CMP, ####[facility] ([id number])[address] [place], [place] [address]VIAUHHDW NEUTROPHIL5.9 X10E9/LNormal1.5-6.6ProSelect Medical Specialty Hospital - Cleveland-FairhillComment on above: Performed By: #### CBCRachel CMP, ####[facility] ([id number])[address] [place], [place] [address]Hfymdsttm/100 WBC (Bld)1.5 %Normal Parkwood HospitalComment on above:Performed By: #### CBCRachel [facility], ####[facility] ([id number])[address] [place] [address] Eosinophils (Bld) [#/Vol]0.6 10*3/uLHigh0.0-0.4ProSelect Medical Specialty Hospital - Cleveland-FairhillComment on above:Performed By: #### CBCA, [facility], ####[facility] ([id number])[address] [place], [place] [address]Ltosdwsgpkd/100 WBC (Bld)5.9 %Normal Parkwood HospitalComment on above:Performed By: #### CBCRachel [facility], ####[facility] ([id number])[address] [place] [address] Erythrocyte distribution width (RBC) [Ratio]18.0 %High11.5-15.0ProSelect Medical Specialty Hospital - Cleveland-FairhillComment on above:Performed By: #### CBCA, CMP, ####[facility] ([id number])[address] [place], [place] [address]Tvvctinmte (Bld) [Volume fraction]26.2 %Mue97-22IjjApycypSelect Medical Specialty Hospital - Cleveland-FairhillComment on above: Performed By: #### CBCA, CMP, ####[facility] ([id number])[address] [place], [place] [address]Cwopddyqzv (Bld) [Mass/Vol]8.7 g/dL Low13.0-17.0Parkwood HospitalComment on above:Performed By: #### CBCRachel CMP, ####[facility] ([id number])[address] [place], [place] [address]Gtsctfpgser (Bld) [#/Vol]2.7 10*3/uLNormal1.0-3.5ProMedica [facility] HospitalComment on above:Performed By: #### CBCRachel CMP, ####[facility] ([id number])[address] [place], [place] [address]Ocqrokevvcg/100 WBC (Bld)26.7 %NormalProSelect Medical Specialty Hospital - Cleveland-FairhillComment on above:Performed By: #### CBCRachel CMP, ####[facility] ([id number])[address] [place], [place] [address]UHM (RBC) [Entitic mass]32.8 ulBirjpp47-64EgjHgjwkySelect Medical Specialty Hospital - Cleveland-FairhillComment on above:Performed By: #### MARVA [facility], ####[facility] ([id number])[address] [place], [place] [address]FXXI (RBC) [Mass/Vol]33.2 g/nQLnfwck21-75KmtHrmsoqSelect Medical Specialty Hospital - Cleveland-FairhillComment on above: Performed By: #### CBCRachel, CMP, ####[facility] ([id number])[address] [place], [place] [address]XPY (RBC) [Entitic vol]99 fLNormal 80-100ProSelect Medical Specialty Hospital - Cleveland-FairhillComment on above:Performed By: #### CBCA, CMP, ####[facility] ([id number])[address] [place], [place] [address]Ftxhduqaj (Bld) [#/Vol]0.7 10*3/uLNormal0-0.9[facility] Comment on above:Performed By: #### CBCA, CMP, ####[facility] ([id number])[address] [place], [place] [address]Crdpehxcl/100 WBC (Bld)6.7 %NormalProUc Health HospitalComment on above:Performed By: #### CBCRachel CMP, ####[facility] ([id number])[address] [place], [place] [address]Kdvymhybszs/100 WBC (Bld)59.2 %NormalProUc Health HospitalComment on above:Performed By: #### MARVA [facility], ####[facility] ([id number])[address] [place], [place] [address]Vvgpzewy mean volume (Bld) [Entitic vol]9.7 fLNormal7-12Pro[facility] HospitalComment on above:Performed By: #### MARVA [facility], ####[facility] ([id number])[address] [place], [place] [address]Svijdymjh (Bld) [#/Vol]188 10*3/cBCgaush557-940BncBtkjll Baypark HospitalComment on above:Performed By: #### MARVA [facility], ####[facility] ([id number])[address] [place] [address]WPB COUNT 2.65 X10E12/LLow4.10-5.70ProUc Health HospitalComment on above:Performed By: #### CBCRachel [facility], ####[facility] ([id number])[address] [place] [address]YIB (Bld) [#/Vol]10.0 10*3/uLNormal4.0-11.0ProUc Health HospitalComment on above:Performed By: #### CBCRachel CMP, ####[facility] ([id number])[address] [place] [address]ZNV auto differentialon 48-95-8525Rbnfpcabi (Bld) [#/Vol]0.1 10*3/[facility]FlintBasophils/100 WBC (Bld)1.5 %[facility] Medical CenterEosinophils (Bld) [#/Vol]0.6 10*3/uLHighOhioHealth Grant Medical CenterEosinophils/100 WBC (Bld)5.9 % [facility] Medical CenterErythrocyte distribution width (RBC) [Ratio]18.0 %High 11.5 - 15.0 %[facility] Medical CenterHematocrit (Bld) [Volume fraction]26.2 %Low 39 - 49 %[facility] Medical CenterHemoglobin (Bld) [Mass/Vol]8.7 g/dLLow13.0 - 17.0 g/dLOhioHealth Grant Medical CenterInterpretation and review of laboratory results AbnormalOhioHealth Grant Medical CenterLymphocytes (Bld) [#/Vol]2.7 10*3/[facility]-FlintLymphocytes/100 WBC (Bld)26.7 %[facility] Medical CenterMCH (RBC) [Entitic mass]32.8 pg27 - 34 [facility] HospitalMCHC (RBC) [Mass/Vol]33.2 g/dL32 - 36 g/dLOhioHealth Grant Medical CenterMCV (RBC) [Entitic vol]99 fL80 - 100 fL [facility] Medical CenterMonocytes (Bld) [#/Vol]0.7 10*3/[facility] Monocytes/100 WBC (Bld)6.7 %[facility] Medical CenterNeutrophils (Bld) [#/Vol]5.9 10*3/[facility]-FlintNeutrophils/100 WBC (Bld)59.2 %[facility] Medical CenterPlatelet mean volume (Bld) [Entitic vol]9.7 fL7 - 12 [facility] CenterPlatelets (Bld) [#/Vol]188 10*3/[facility]-FlintRBC (Bld) [#/Vol] 2.65 10*6/[facility] HospitalWBC corrected for nucl RBC Auto (Bld) [#/Vol]10.0[facility] State HospitalCOMPREHENSIVE METABOLIC PANELon 29-09-7849Mukaclo [Mass/Vol]3.1 g/dLLow3.2-5.3ProMedPremier HealthComment on above:Performed By: #### EBONY DURHAM, ####[facility] ([id number])[address] [place], [place] [address]XTD [Catalytic activity/Vol]174 U/QSuwl19-981IsgFomvmySelect Medical Specialty Hospital - Cleveland-FairhillComment on above: Performed By: #### EBONY DURHAM, ####[facility] ([id number])[address] [place], [place] [address]NIE [Catalytic activity/Vol]27 U/L Normal0-40ProSelect Medical Specialty Hospital - Cleveland-FairhillComment on above:Performed By: #### EBONY DURHAM, ####[facility] ([id number])[address] [facility] [place], [place] [address]Rliqm gap [Moles/Vol]10 mmol/LNormal5-15[facility] [place] Comment on above:Performed By: #### EBONY DURHAM, ####[facility] ([id number])[address] [facility] [place], [place] [address]PTK [Catalytic activity/Vol]41 U/LNormal0-41[facility] [place] on above: Performed By: #### EBONY DURHAM, ####[facility] ([id number])[address] [place], [place] [address]Cbcnlufkl [Mass/Vol]0.7 mg/dLNormal 0.3-1.2PThe Bellevue HospitalComment on above:Performed By: #### EBONY DURHAM, ####[facility] ([id number])[address] [facility] [place], [place] [address]Gqdgzpc [Mass/Vol]8.9 mg/dLNormal8.5-10.5PThe Bellevue HospitalComment on above:Performed By: #### EBONY DURHAM, ####[facility] ([id number])[address] [facility], [place] [address]Iuadyecr [Moles/Vol]104 mmol/LNormal 98-109[facility] - [place]Comment on above:Performed By: #### EBONY DURHAM, ####[facility] ([id number])[address] [facility] [place], [place] [address]PE3 [Moles/Vol]25 mmol/ZGkwzkr97-29PinSbffhp [facility] HospitalComment on above:Performed By: #### EBONY DURHAM, ####[facility] ([id number])[address] [facility] [place] [place] [address]Nmczvdjufd [Mass/Vol]1.05 mg/dL Normal0.70-1.20[facility] [place]Comment on above:Result Comment: METHOD TRACEABLE TO IDMS STANDARDPerformed By: #### EBONY DURHAM, ####[facility] ([id number])[address] [place], [place] [address]IGI/1.73 sq M.predicted among non-blacks MDRD (S/P/Bld) [Vol rate/Area]74 mL/min/{1.73_m2} Normal>59[facility] - [place]hillComment on above:Result Comment: Reported eGFR is based on the CKD-EPI 1 equation that does not use a race coefficient.Performed By: #### EBONY DURHAM, ####[facility] ([id number])[address] [facility], [place] [address]Tpgdsmb [Mass/Vol]125 mg/cLOfre31-85ZfdYtbrkySelect Medical Specialty Hospital - [place]hillComment on above:Performed By: #### EBONY DURHAM, ####[facility] ([id number])[address] [facility] [place], [place] [address]Ozsakesbn [Moles/Vol]4.2 mmol/LNormal3.5-5.0[facility] - [place]Comment on above:Performed By: #### EBONY DURHAM, ####[facility] ([id number])[address] [place], [place] [address]Ztszzib [Mass/Vol]7.3 g/dLNormal6.0-8.0[facility] - [place]hillComment on above: Performed By: #### EBONY DURHAM, [id number] ####[facility] ([id number])[address] [place], [place] [address]Unhzjk [Moles/Vol]139 mmol/LNormal 134-146ProSelect Medical Specialty Hospital - Cleveland-FairhillComment on above:Performed By: #### EBONY DURHAM, 42581-3 ####[facility] ([id number])[address] [place], [place] [address]Qglg nitrogen [Mass/Vol]9 mg/dLNormal5-27ProSelect Medical Specialty Hospital - Cleveland-FairhillComment on above:Performed By: #### EBONY DURHAM, 85099-4 ####[facility] ([id number])[address] [place], [place] [address]Aabnihnmvxlly metabolic panelon 83-33-8486Zaagtfe [Mass/Vol]3.1 g/dLLow3.2 - 5.3 g/dLProMedica Health SystemALP [Catalytic activity/Vol]174 U/LHigh39 - 130 U/LProMedica Health SystemALT No additional P-5'-P [Catalytic activity/Vol]27 U/L0 - 40 U/LProMedica Health SystemAnion gap [Moles/Vol]10 mmol/L5 - 15 mmol/LProMedica Health SystemAST [Catalytic activity/Vol]41 U/L0 - 41 U/LProMedica Health SystemBilirubin [Mass/Vol]0.7 mg/dL0.3 - 1.2 mg/dLProMedica Health SystemCalcium [Mass/Vol]8.9 mg/dL8.5 - 10.5 mg/dLProMedica Health SystemChloride [Moles/Vol]104 mmol/L98 - 109 mmol/LProMedica Health SystemCO2 [Moles/Vol]25 mmol/L22 - 32 mmol/LProMedica Health SystemCreatinine [Mass/Vol]1.05 mg/dL0.70 - 1.20 mg/dLSelect Medical Specialty Hospital - Board[facility], Inc SystemComment on above:METHOD TRACEABLE TO IDMS STANDARDeGFR (CKD-EPI)non-race lvmhvcbuj11- [facility] CenterComment on above: Reported eGFR is based on the CKD-EPI 2020 equation that does not use a race coefficient. Glucose [Mass/Vol]125 mg/yNBgpz73 - 99 mg/dLOhioHealth Grant Medical Center Interpretation and review of laboratory resultsAbDannemora State Hospital for the Criminally Insane Potassium [Moles/Vol]4.2 mmol/L3.5 - 5.0 mmol/LPrParkwood Hospital SystemProtein [Mass/Vol]7.3 g/dL6.0 - 8.0 g/dLNovant Health New Hanover Regional Medical Centerodium [Moles/Vol]139 mmol/L134 - 146 mmol/[facility]itan HospitalUrea nitrogen [Mass/Vol]9 mg/dL5 - 27 mg/dLOhioHealth Grant Medical CenterGlucose Glucometer (BldC) [Mass/Vol]on 10-24-2023 Glucose [Mass/Vol]121 mg/hWIioy41 - 99 mg/dLOhioHealth Grant Medical Center Interpretation and review of laboratory resultsAbMarshfield Medical Center/Hospital Eau ClaireGlucose [Mass/Vol]121 mg/bEEhls81-08CscAuuljaParkwood HospitalGlucose [Mass/Vol]101 mg/nXPdpn60 - 99 mg/dLOhioHealth Grant Medical Center Interpretation and review of laboratory resultsAbMarshfield Medical Center/Hospital Eau ClaireGlucose [Mass/Vol]101 mg/hXLlze97-95NzsJqwtqlParkwood HospitalGlucose [Mass/Vol]106 mg/eVAoyv99 - 99 mg/dLOhioHealth Grant Medical Center Interpretation and review of laboratory resultsAbMarshfield Medical Center/Hospital Eau ClaireGlucose [Mass/Vol]106 mg/sUNqon17-15XojGtzpveParkwood HospitalGlucose [Mass/Vol]110 mg/uUTaef67 - 99 mg/dLOhioHealth Grant Medical Center Interpretation and review of laboratory resultsAbMarshfield Medical Center/Hospital Eau ClaireGlucose [Mass/Vol]110 mg/iQTigi55-59YijIxavdeParkwood HospitalHeparin unfractionated Chromogenic method Qn (PPP)on 07-13-1247LqwWtonj[address] [place], [place] [address]ANTI XA UFH0.48 IU/mLNormal0.30-0.70[facility] Comment on above:Result Comment: Optimal time for testing is 6 hrs post dosage This test is specific for monitoring patients on UFH, and is not recommended for use with other Anti-Xa medications.Performed By: #### 2823-3 #### [facility] ([id number]) [address] [place], [place] [address]ZPFAQGLXOqc 65-33-5400Djovqntdx [Mass/Vol]2.2 mg/dLNormal1.8-2.6 Parkwood HospitalComment on above:Performed By: #### 2823-3 #### [facility] ([id number]) [address] [place], [place] [address]Huzyrawqpvn 60-03-6072Bgnlhmqfa [Mass/Vol]2.2 mg/dL1.8 - 2.6 mg/dLOhioHealth Grant Medical CenterNo Panel Informationon 78-20-6033TmsJdsiiyAdena Fayette Medical CenterAnti XA unfractionated heparinon 69-22-2217Gdjshpt unfractionated Chromogenic method Qn (PPP)0.38OhioHealth Grant Medical CenterComment on above:Optimal time for testing is 6 hrs post dosage This test is specific for monitoring patients on UFH, and is not recommended for use with other Anti-Xa medications. Heparin unfractionated Chromogenic method Qn (PPP)0.62[facility] Comment on above:Optimal time for testing is 6 hrs post dosage This test is specific for monitoring patients on UFH, and is not recommended for use with other Anti-Xa medications. Heparin unfractionated Chromogenic method Qn (PPP)0.74Dominion HospitalComment on above:Optimal time for testing is 6 hrs post dosage This test is specific for monitoring patients on UFH, and is not recommended for use with other Anti-Xa medications. CBC AND AUTO DIFFon 65-64-7115HZBWXRIM BASOPHIL0.1 X10E9/LNormal0.0-0.2PThe Bellevue HospitalComment on above:Performed By: #### 41069-0 #### [facility] ([id number]) [address] [place], [place] [address]XMBDRZBA NEUTROPHIL4.9 X10E9/LNormal1.5-6.6ProSelect Medical Specialty Hospital - Cleveland-FairhillComment on above:Performed By: #### 68940-8 #### [facility] ([id number]) [address] [place], [place] [address]Hsxijetii/100 WBC (Bld)0.9 %NormalParkwood Hospital Comment on above:Performed By: #### 56998-2 #### [facility] ([id number]) [address] [place], [place] [address]Tjlugurjwry (Bld) [#/Vol]0.5 10*3/uLHigh0.0-0.4Parkwood HospitalComment on above:Performed By: #### 44929-9 #### [facility] ([id number]) [address] [place], [place] [address]Gvruvrtzcip/100 WBC (Bld)6.3 %NormalParkwood Hospital Comment on above:Performed By: #### 29710-9 #### [facility] ([id number]) [address] [place], [place] [address]Fojtiujzcfa distribution width (RBC) [Ratio]18.4 %High11.5-15.0 Parkwood HospitalComment on above:Performed By: #### 06330-1 #### [facility] ([id number]) [address] [place], [place] [address]Mubxueevgu (Bld) [Volume fraction]24.1 %Nnl41-31LwwMvpdzhSelect Medical Specialty Hospital - Cleveland-FairhillComment on above:Performed By: #### 51597-4 #### [facility] ([id number]) [address] [place], [place] [address]Rulazpchwl (Bld) [Mass/Vol]8.1 g/dLLow13.0-17.0Parkwood HospitalComment on above:Performed By: #### 38139-8 #### [facility] ([id number]) [address] [place], [place] [address]Ebrpwcnkhki (Bld) [#/Vol]1.8 10*3/uLNormal1.0-3.5ProMedica [facility]ar[facility] North Lincoln HospitalComment on above:Performed By: #### 92301-9 #### [facility] ([id number]) [address] [place], [place] [address]Gvztgpinyai/100 WBC (Bld)23.6 %NormalParkwood Hospital Comment on above:Performed By: #### 25145-4 #### [facility] ([id number]) [address] [place], [place] [address]ROL (RBC) [Entitic mass]33.1 mjNjmhca17-89GovYbuajhSelect Medical Specialty Hospital - Cleveland-FairhillComment on above:Performed By: #### 68106-7 #### [facility] ([id number]) [address] [place], [place] [address]VGVM (RBC) [Mass/Vol]33.8 g/aEPkicua91-02MdtVdseziSelect Medical Specialty Hospital - Cleveland-FairhillComment on above:Performed By: #### 89958-8 #### [facility] ([id number]) [address] [place], [place] [address]NST (RBC) [Entitic vol]98 zECqishh08-915RxjLrfyto Baypark HospitalComment on above:Performed By: #### 23798-4 #### [facility] ([id number]) [address] [place], [place] [address]Lgbbkgvgp (Bld) [#/Vol]0.5 10*3/uLNormal0-0.9ProSelect Medical Specialty Hospital - Cleveland-FairhillComment on above:Performed By: #### 00390-7 #### [facility] ([id number]) [address] [place], [place] [address]Oxnrmfvvp/100 WBC (Bld)6.1 %[facility] Comment on above:Performed By: #### 97464-2 #### [facility] ([id number]) [address] [place], [place] [address]Vhfmwddlqnu/100 WBC (Bld)63.1 %NormalParkwood Hospital Comment on above:Performed By: #### 70629-4 #### [facility] ([id number]) [address] [place], [place] [address]Sxshyuzk mean volume (Bld) [Entitic vol]10.1 fLNormal7-12 Parkwood HospitalComment on above:Performed By: #### 56431-7 #### [facility] ([id number]) [address] [place], [place] [address]Wyywlvmgb (Bld) [#/Vol]159 10*3/xGFgkorx038-526RtwQmntyl Bay[facility] HospitalComment on above:Performed By: #### 10423-7 #### [facility] ([id number]) [address] [place], [place] [address]KXJ COUNT2.46 X10E12/LLow4.10-5.70[facility] Comment on above:Performed By: #### 91150-1 #### [facility] ([id number]) [address] [place], [place] [address]UPM (Bld) [#/Vol]7.7 10*3/uLNormal4.0-11.0Parkwood HospitalComment on above:Performed By: #### 50672-6 #### [facility] ([id number]) [address] [place], [place] [address]KXX auto differentialon 24-20-4437Wwnzpxjdg (Bld) [#/Vol]0.1 10*3/uLOhioHealth Grant Medical CenterBasophils/100 WBC (Bld)0.9 %[facility] Medical CenterEosinophils (Bld) [#/Vol]0.5 10*3/uLDominion Hospital Eosinophils/100 WBC (Bld)6.3 %[facility] Hospitaledica Health SystemErythrocyte distribution width (RBC) [Ratio]18.4 %High11.5 - 15.0 %[facility] SystemHematocrit (Bld) [Volume fraction]24.1 %Low39 - 49 %[facility]itan HospitaledicMount St. Mary HospitalHemoglobin (Bld) [Mass/Vol]8.1 g/dLLow13.0 - 17.0 g/dLOhioHealth Grant Medical CenterInterpretation and review of laboratory resultsAbnormalOhioHealth Grant Medical CenterLymphocytes (Bld) [#/Vol]1.8 10*3/uLOhioHealth Grant Medical CenterLymphocytes/100 WBC (Bld)23.6 % Mansfield HospitalH (RBC) [Entitic mass]33.1 pg27 - 34 pgPAdena Fayette Medical CenterMCHC (RBC) [Mass/Vol]33.8 g/dL32 - 36 g/dLOhioHealth Grant Medical CenterMCV (RBC) [Entitic vol]98 fL80 - 100 [facility] CenterMonocytes (Bld) [#/Vol]0.5 10*3/uLOhioHealth Grant Medical CenterMonocytes/100 WBC (Bld)6.1 %[facility] Medical CenterNeutrophils (Bld) [#/Vol]4.9 10*3/uLOhioHealth Grant Medical CenterNeutrophils/100 WBC (Bld)63.1 %[facility] Medical CenterPlatelet mean volume (Bld) [Entitic vol] 10.1 fL7 - 12 [facility] Medical CenterPlatelets (Bld) [#/Vol]159 10*3/uL [facility] Medical CenterRBC (Bld) [#/Vol]2.46 10*6/uLLowOhioHealth Grant Medical Center WBC corrected for nucl RBC Auto (Bld) [#/Vol]7.7Torrance State HospitalCOMPREHENSIVE METABOLIC PANELon 40-13-6737Ywuoiyn [Mass/Vol]2.8 g/dLLow3.2-5.3PThe Bellevue HospitalComment on above:Performed By: #### 14483-0 #### [facility] ([id number]) [address] [place] [address]HGX [Catalytic activity/Vol]120 U/QZejvsi27-271EsxNhjrvxParkwood HospitalComment on above:Performed By: #### 94039-2 #### [facility] ([id number]) [address] [place] [address]DNT [Catalytic activity/Vol]22 U/LNormal0-40Parkwood HospitalComment on above:Performed By: #### 74619-8 #### [facility] ([id number]) [address] [place], [place] [address]Qvsqy gap [Moles/Vol]6 mmol/LNormal5-15ProSelect Medical Specialty Hospital - Cleveland-FairhillComment on above:Performed By: #### 81360-0 #### [facility] ([id number]) [address] [place], [place] [address]QNL [Catalytic activity/Vol]27 U/LNormal0-41ProSelect Medical Specialty Hospital - Cleveland-FairhillComment on above:Performed By: #### 83888-9 #### [facility] ([id number]) [address] [place], [place] [address]Freajpavd [Mass/Vol]0.6 mg/dLNormal0.3-1.2ProMedPremier HealthComment on above:Performed By: #### 25705-4 #### [facility] ([id number]) [address] [place], [place] [address]Dxryaot [Mass/Vol]8.7 mg/dLNormal8.5-10.5PThe Bellevue HospitalComment on above:Performed By: #### 02150-8 #### [facility] ([id number]) [address] [place], [place] [address]Eyakntzd [Moles/Vol]106 mmol/YFofcql54-827FczXnpynzSelect Medical Specialty Hospital - Cleveland-FairhillComment on above:Performed By: #### 52092-6 #### [facility] ([id number]) [address] [place], [place] [address]HS1 [Moles/Vol]27 mmol/OVqaeuo78-87FolBjsyan [facility] Comment on above:Performed By: #### 18192-1 #### [facility] ([id number]) [address] [place], [place] [address]Aiehlfqgna [Mass/Vol]1.18 mg/dLNormal0.70-1.20ProSelect Medical Specialty Hospital - Cleveland-FairhillComment on above:Result Comment: METHOD TRACEABLE TO IDMS STANDARD Performed By: #### 39322-4 #### [facility] ([id number]) [address] [place], [place] [address]RLP/1.73 sq M.predicted among non-blacks MDRD (S/P/Bld) [Vol rate/Area]64 mL/min/{1.73_m2}Normal>59ProSelect Medical Specialty Hospital - Cleveland-FairhillComment on above:Result Comment: Reported eGFR is based on the CKD-EPI 2020 equation that does not use a race coefficient.Performed By: #### 25630-0 #### [facility] ([id number]) [address] [place], [place] [address]Zsqpugx [Mass/Vol]93 mg/cSImhtpy99-51TqrEcynseSelect Medical Specialty Hospital - [facility]hill Comment on above:Performed By: #### 96268-9 #### [facility] ([id number]) [address] [place], [place] [address]Frnxmnkxv [Moles/Vol]4.2 mmol/LNormal3.5-5.0ProSelect Medical Specialty Hospital - Cleveland-FairhillComment on above:Performed By: #### 46892-8 #### [facility] ([id number]) [address] [place], [place] [address]Tmlffvl [Mass/Vol]6.4 g/dLNormal6.0-8.0ProSelect Medical Specialty Hospital - Cleveland-FairhillComment on above:Performed By: #### 08304-1 #### [facility] ([id number]) [address] [place], [place] [address]Lkujjd [Moles/Vol]139 mmol/RBmptpi693-679UdjCjgifw Baypark HospitalComment on above:Performed By: #### 47129-1 #### [facility] ([id number]) [address] [place], [place] [address]Nmsh nitrogen [Mass/Vol]9 mg/dLNormal5-27ProSelect Medical Specialty Hospital - Cleveland-FairhillComment on above:Performed By: #### 46316-8 #### [facility] ([id number]) [address] [place], [place] [address]Pbgmbjkmwlucm metabolic panelon 56-28-2085Girdfwy [Mass/Vol]2.8 g/dLLow3.2 - 5.3 g/dLProRmc [facility] Health SystemALP [Catalytic activity/Vol]120 U/L 39 - 130 U/[facility] SystemALT No additional P-5'-P [Catalytic activity/Vol]22 U/L0 - 40 U/[facility] Health SystemAnion gap [Moles/Vol]6 mmol/L5 - 15 mmol/LPrWest Springs Hospital Health SystemAST [Catalytic activity/Vol]27 U/L0 - 41 U/[facility] SystemBilirubin [Mass/Vol]0.6 mg/dL0.3 - 1.2 mg/dL [facility] SystemCalcium [Mass/Vol]8.7 mg/dL8.5 - 10.5 mg/dLSelect Medical Specialty [facility], [facility] SystemChloride [Moles/Vol]106 mmol/L98 - 109 mmol/[facility] SystemCO2 [Moles/Vol]27 mmol/L22 - 32 mmol/[facility] SystemCreatinine [Mass/Vol]1.18 mg/dL0.70 - 1.20 mg/dLOhioHealth Grant Medical CenterComment on above: METHOD TRACEABLE TO IDAL STANDARDeGFR (CKD-EPI)non-race jerbcxrpi36- PINF [facility] Medical CenterComment on above: Reported eGFR is based on the CKD-EPI 2020 equation that does not use a race coefficient. Glucose [Mass/Vol]93 mg/dL65 - 99 mg/dLOhioHealth Grant Medical CenterPotassium [Moles/Vol]4.2 mmol/L3.5 - 5.0 mmol/[facility] SystemProtein [Mass/Vol] 6.4 g/dL6.0 - 8.0 g/dLSelect Medical Specialty [facility] SystemSodium [Moles/Vol]139 mmol/L134 - 146 mmol/[facility] SystemUrea nitrogen [Mass/Vol]9 mg/dL5 - 27 mg/dL [facility] Medical CenterGlucose Glucometer (BldC) [Mass/Vol]on 40-74-7787Czmjgia [Mass/Vol]135 mg/wBLwzd01 - 99 mg/dLOhioHealth Grant Medical CenterInterpretation and review of laboratory resultsAbnormalOhioHealth Grant Medical CenterProAdams County Regional Medical CenterGlucose [Mass/Vol]135 mg/iEDehu39-20ApwJnbzygParkwood HospitalGlucose [Mass/Vol]127 mg/pHWolh29 - 99 mg/dLOhioHealth Grant Medical CenterInterpretation and review of laboratory resultsAbnoKensington HospitalGlucose [Mass/Vol]91 mg/dL65 - 99 mg/dLTorrance State HospitalGlucose [Mass/Vol]127 mg/yQYhxq42-26OayRbcmvwParkwood Hospital Glucose [Mass/Vol]91 mg/tQVfgfpj68-19AujBkroivParkwood HospitalGlucose [Mass/Vol]88 mg/dL65 - 99 mg/dLTorrance State Hospital Glucose [Mass/Vol]88 mg/tXAvfdku79-04OcjBhguiyParkwood HospitalHeparin unfractionated Chromogenic method Qn (PPP)on 90-55-2068PtkPojver[address] [place] [address] ANTI XA UFH0.38 IU/mLNormal0.30-0.70Parkwood HospitalComment on above: Result Comment: Optimal time for testing is 6 hrs post dosage This test is specific for monitoring patients on UFH, and is not recommended for use with other Anti-Xa medications.Performed By: #### 3274-8 ####[facility] ([id number])[address] [place], [place] [address]KwzIplnnfOhioHealth Grant Medical CenterANTI XA UFH0.62 IU/mLNormal0.30-0.70[facility] HospitalComment on above: Result Comment: Optimal time for testing is 6 hrs post dosage This test is specific for monitoring patients on UFH, and is not recommended for use with other Anti-Xa medications.Performed By: #### 3274-8, 23118-2 ####[facility] ([id number])[address] [place], [place] [address]Hmioofssovckud and review of laboratory resultsAbnoKensington HospitalANTI XA UFH0.74 IU/mLHigh0.30-0.70[facility] HospitalComment on above:Result Comment: Optimal time for testing is 6 hrs post dosage This test is specific for monitoring patients on UFH, and is not recommended for use with other Anti-Xa medications.Performed By: #### 78438-3 #### [facility] ([id number]) [address] [place], [place] [address]NOFKWMJZOji 24-54-9811Ymsjxndcm [Mass/Vol]2.4 mg/dLNormal1.8-2.6 [facility] HospitalComment on above:Performed By: #### 55921-6 ####[facility] ([id number])[address] [place], [place] [address]Ijydquxsm [Mass/Vol]1.7 mg/dLLow1.8-2.6Parkwood HospitalComment on above: Performed By: #### 3274-8, 05910-3 ####[facility] ([id number])[address] [place], [place] [address]Lcnhaxpct [Mass/Vol]1.7 mg/dLLow 1.8-2.6Parkwood HospitalComment on above:Performed By: #### 39210-1 #### [facility] ([id number]) [address] [place], [place] [address]Hciucjxyixy 79-65-8020Ursbjpnud [Mass/Vol]2.4 mg/dL1.8 - 2.6 mg/dLOhioHealth Grant Medical CenterMagnesium [Mass/Vol]1.7 mg/dLLow1.8 - 2.6 mg/dL [facility] CenterMagnesium [Mass/Vol]1.7 mg/dLLow1.8 - 2.6 mg/dLOhioHealth Grant Medical CenterMagnesium [Mass/Vol]on 86-17-3238YiiXimbyg[address] [place] [address] Interpretation and review of laboratory resultsAbnoMayo Clinic Health System– Red CedarNo Panel Informationon 10-93-9977Chezcrrunvzgdf and review of laboratory resultsAbConemaugh Nason Medical CenterAnti XA unfractionated heparinon 42-85-7978Edelujv unfractionated Chromogenic method Qn (PPP)0.93Critically highOhioHealth Grant Medical CenterComment on above:Optimal time for testing is 6 hrs post dosage This test is specific for monitoring patients on UFH, and is not recommended for use with other Anti-Xa medications. Heparin unfractionated Chromogenic method Qn (PPP)1.16Critically Hospital Corporation of AmericaComment on above:Optimal time for testing is 6 hrs post dosage This test is specific for monitoring patients on UFH, and is not recommended for use with other Anti-Xa medications. Heparin unfractionated Chromogenic method Qn (PPP)1.29Critically [facility] Corporation of AmericaComment on above:Optimal time for testing is 6 hrs post dosage This test is specific for monitoring patients on UFH, and is not recommended for use with other Anti-Xa medications. CBC AND AUTO DIFFon 42-85-5423GIBSCYZG BASOPHIL0.1 X10E9/LNormal0.0-0.2PThe Bellevue HospitalComment on above:Performed By: #### 47071-1, #### [facility] ([id number]) [address] [facility] [place], [place] [address]DVRNFVUZ NEUTROPHIL4.6 X10E9/LNormal1.5-6.6Park[facility] HospitalComment on above:Performed By: #### 51555-6, #### [facility] ([id number]) [address] [place], [place] [address]Ilkjyafpi/100 WBC (Bld)1.3 %[facility] Comment on above:Performed By: #### 41627-2, 56275-3 #### [facility] ([id number]) [address] [place], [place] [address]Aimeyympioc (Bld) [#/Vol]0.5 10*3/uLHigh0.0-0.4[facility] HospitalComment on above:Performed By: #### 44954-7, #### [facility] ([id number]) [address] [place], [place] [address]Pnishkzqosm/100 WBC (Bld)6.5 %NormalParkwood Hospital Comment on above:Performed By: #### 44514-4, #### [facility] ([id number]) [address] [place], [place] [address]Ooojirdxkrm distribution width (RBC) [Ratio]17.8 %High11.5-15.0 ProMSycamore Medical CenterComment on above:Performed By: #### 63522-7, #### [facility] ([id number]) [address] [place], [place] [address]Ojsdqqdled (Bld) [Volume fraction]24.3 %Ikq63-48GrlUydadiSelect Medical Specialty Hospital - Cleveland-FairhillComment on above:Performed By: #### 73859-4, 01033-4 #### [facility] ([id number]) [address] [place], [place] [address]Ttsqifyojr (Bld) [Mass/Vol]8.0 g/dLLow13.0-17.0Parkwood HospitalComment on above:Performed By: #### 91524-5, 28924-2 #### [facility] ([id number]) [address] [place], [place] [address]Rocyaffljhv (Bld) [#/Vol]1.8 10*3/uLNormal1.0-3.5ProMedica Samaritan North Lincoln HospitalComment on above:Performed By: #### 64085-1, #### [facility] ([id number]) [address] [place], [place] [address]Ivejfttnryx/100 WBC (Bld)24.3 %NormalProUc Health Hospital Comment on above:Performed By: #### 43637-9, #### [facility] ([id number]) [address] [place], [place] [address]ZWA (RBC) [Entitic mass]32.5 ebGhtdxn21-69NowMsxmynSelect Medical Specialty Hospital - Cleveland-FairhillComment on above:Performed By: #### 46610-2, #### [facility] ([id number]) [address] [place], [place] [address]CPLD (RBC) [Mass/Vol]33.1 g/jJLooywq90-70TvfEbvywfSelect Medical Specialty Hospital - Cleveland-FairhillComment on above:Performed By: #### 70429-4, #### [facility] ([id number]) [address] [place], [place] [address]LJE (RBC) [Entitic vol]98 yWLyaavs09-994IivLitveo Baypark HospitalComment on above:Performed By: #### 81164-3, 50576-2 #### [facility] ([id number]) [address] [place], [place] [address]Gvwdbggyf (Bld) [#/Vol]0.5 10*3/uLNormal0-0.9ProSelect Medical Specialty Hospital - Cleveland-FairhillComment on above:Performed By: #### 60729-9, 66863-6 #### [facility] ([id number]) [address] [place], [place] [address]Lfyjmehbb/100 WBC (Bld)6.2 %NormalParkwood Hospital Comment on above:Performed By: #### 14146-7, #### [facility] ([id number]) [address] [place], [place] [address]Ubdgjfygbad/100 WBC (Bld)61.7 %NormalParkwood Hospital Comment on above:Performed By: #### 76485-5, #### [facility] ([id number]) [address] [place], [place] [address]Fbcwofdh mean volume (Bld) [Entitic vol]9.7 fLNormal7-12 [facility] HospitalComment on above:Performed By: #### 63333-2, #### [facility] ([id number]) [address] [place], [place] [address]Hzyirdhvn (Bld) [#/Vol]158 10*3/yWUysgnz796-297VhrZcnboz Baypark HospitalComment on above:Performed By: #### 34322-4, #### [facility] ([id number]) [address] [place], [place] [address]ILB COUNT2.47 X10E12/LLow4.10-5.70[facility] Comment on above:Performed By: #### 63556-5, 38998-6 #### [facility] ([id number]) [address] [place], [place] [address]YPM (Bld) [#/Vol]7.5 10*3/uLNormal4.0-11.0Parkwood HospitalComment on above:Performed By: #### 80978-1, 38136-1 #### [facility] ([id number]) [address] [place] [id number] auto differentialon 40-57-5633Iciqghgln (Bld) [#/Vol]0.1 10*3/uLOhioHealth Grant Medical CenterBasophils/100 WBC (Bld)1.3 %[facility] Medical CenterEosinophils (Bld) [#/Vol]0.5 10*3/uLDominion Hospital Eosinophils/100 WBC (Bld)6.5 %[facility] Medical CenterErythrocyte distribution width (RBC) [Ratio]17.8 %High11.5 - 15.0 %[facility] Medical CenterHematocrit (Bld) [Volume fraction]24.3 %Low39 - 49 %[facility] Medical CenterHemoglobin (Bld) [Mass/Vol]8.0 g/dLLow13.0 - 17.0 g/dLOhioHealth Grant Medical CenterInterpretation and review of laboratory resultsAbnormalOhioHealth Grant Medical CenterLymphocytes (Bld) [#/Vol]1.8 10*3/uLOhioHealth Grant Medical CenterLymphocytes/100 WBC (Bld)24.3 % [facility] HospitalH (RBC) [Entitic mass]32.5 pg27 - 34 pgPAdena Fayette Medical CenterMCHC (RBC) [Mass/Vol]33.1 g/dL32 - 36 g/dLOhioHealth Grant Medical CenterMCV (RBC) [Entitic vol]98 fL80 - 100 fLPAdena Fayette Medical CenterMonocytes (Bld) [#/Vol]0.5 10*3/uLOhioHealth Grant Medical CenterMonocytes/100 WBC (Bld)6.2 %[facility] Medical CenterNeutrophils (Bld) [#/Vol]4.6 10*3/uLOhioHealth Grant Medical CenterNeutrophils/100 WBC (Bld)61.7 %[facility] Medical CenterPlatelet mean volume (Bld) [Entitic vol] 9.7 fL7 - 12 fLPAdena Fayette Medical CenterPlatelets (Bld) [#/Vol]158 10*3/uL [facility] SystemRBC (Bld) [#/Vol]2.47 10*6/uLLowOhioHealth Grant Medical Center WBC corrected for nucl RBC Auto (Bld) [#/Vol]7.5PNew Lifecare Hospitals of PGH - Alle-KiskiCOMPREHENSIVE METABOLIC PANELon 94-96-0944Norgyfs [Mass/Vol]3.0 g/dLLow3.2-5.3PThe Bellevue HospitalComment on above:Performed By: #### 80190-5, 33086-6 #### [facility] ([id number]) [address] [place], [place] [address]RFF [Catalytic activity/Vol]110 U/QAggwsb68-586CudAovungSelect Medical Specialty Hospital - Cleveland-FairhillComment on above:Performed By: #### 08939-3, 69216-3 #### [facility] ([id number]) [address] [place], [place] [address]HKJ [Catalytic activity/Vol]23 U/LNormal0-40ProSelect Medical Specialty Hospital - Cleveland-FairhillComment on above:Performed By: #### 72481-4, 99912-1 #### [facility] ([id number]) [address] [place], [place] [address]Bhjfb gap [Moles/Vol]10 mmol/LNormal5-15ProSelect Medical Specialty Hospital - Cleveland-FairhillComment on above:Performed By: #### 09765-5, 43814-8 #### [facility] ([id number]) [address] [place], [place] [address]PUS [Catalytic activity/Vol]29 U/LNormal0-41ProUc Health HospitalComment on above:Performed By: #### 18036-6, 87122-3 #### [facility] ([id number]) [address] [place], [place] [address]Dmocfvuvs [Mass/Vol]0.7 mg/dLNormal0.3-1.2PThe Bellevue HospitalComment on above:Performed By: #### 49857-2, 24721-1 #### [facility] ([id number]) [address] [place], [place] [address]Ahzxhop [Mass/Vol]8.7 mg/dLNormal8.5-10.5PThe Bellevue HospitalComment on above:Performed By: #### 56238-3, #### [facility] ([id number]) [address] [place], [place] [address]Yypkbeun [Moles/Vol]103 mmol/KSgarmi62-335EzsHffywwSelect Medical Specialty Hospital - Cleveland-FairhillComment on above:Performed By: #### 29336-5, #### [facility] ([id number]) [address] [place], [place] [address]MP7 [Moles/Vol]26 mmol/MNtmsji95-48ZdqXcxcvaThe [facility] Hospital Comment on above:Performed By: #### 27680-0, #### [facility] ([id number]) [address] [place], [place] [address]Jhtmzlkfjq [Mass/Vol]1.13 mg/dLNormal0.70-1.20ProSelect Medical Specialty Hospital - Cleveland-FairhillComment on above:Result Comment: METHOD TRACEABLE TO IDMS STANDARD Performed By: #### 31772-6, #### [facility] ([id number]) [address] [place], [place] [address]YFJ/1.73 sq M.predicted among non-blacks MDRD (S/P/Bld) [Vol rate/Area]68 mL/min/{1.73_m2}Normal>59ProSelect Medical Specialty Hospital - Cleveland-FairhillComment on above:Result Comment: Reported eGFR is based on the CKD-EPI 2020 equation that does not use a race coefficient.Performed By: #### 16772-9, #### [facility] ([id number]) [address] [place], [place] [address]Srbwxwd [Mass/Vol]96 mg/lGRnymck74-88OxsWkpwfoSelect Medical Specialty Hospital - [facility]hill Comment on above:Performed By: #### 32943-7, 77800-1 #### [facility] ([id number]) [address] [place], [place] [address]Xiunxarqq [Moles/Vol]3.8 mmol/LNormal3.5-5.0ProSelect Medical Specialty Hospital - Cleveland-FairhillComment on above:Performed By: #### 14819-7, 31479-3 #### [facility] ([id number]) [address] [place], [place] [address]Ckbnquk [Mass/Vol]6.8 g/dLNormal6.0-8.0ProSelect Medical Specialty Hospital - Cleveland-FairhillComment on above:Performed By: #### 82775-6, 71347-7 #### [facility] ([id number]) [address] [place], [place] [address]Slsrup [Moles/Vol]139 mmol/ALjsnmz680-402KgiNesaiq Baypark HospitalComment on above:Performed By: #### 07755-2, 26260-9 #### [facility] ([id number]) [address] [place], [place] [address]Rxnw nitrogen [Mass/Vol]12 mg/dLNormal5-27ProSelect Medical Specialty Hospital - Cleveland-FairhillComment on above:Performed By: #### 91409-5, 32228-9 #### [facility] ([id number]) [address] [place], [place] [address]Rsrqtovlpletv metabolic panelon 24-75-4659Pjltvcu [Mass/Vol]3.0 g/dLLow3.2 - 5.3 g/dLProRmc [facility] Health SystemALP [Catalytic activity/Vol]110 U/L 39 - 130 U/LProMedica Health SystemALT No additional P-5'-P [Catalytic activity/Vol]23 U/L0 - 40 U/LProMedica Health SystemAnion gap [Moles/Vol]10 mmol/L5 - 15 mmol/LProMedica Health SystemAST [Catalytic activity/Vol]29 U/L0 - 41 U/[facility] SystemBilirubin [Mass/Vol]0.7 mg/dL0.3 - 1.2 mg/dL [facility] SystemCalcium [Mass/Vol]8.7 mg/dL8.5 - 10.5 mg/dLSelect [facility] Specialty [facility] SystemChloride [Moles/Vol]103 mmol/L98 - 109 mmol/[facility] SystemCO2 [Moles/Vol]26 mmol/L22 - 32 mmol/[facility] SystemCreatinine [Mass/Vol]1.13 mg/dL0.70 - 1.20 mg/dLOhioHealth Grant Medical CenterComment on above: METHOD TRACEABLE TO IDAL STANDARDeGFR (CKD-EPI)non-race pqdfitgkc83- PINF [facility] Medical CenterComment on above: Reported eGFR is based on the CKD-EPI 2020 equation that does not use a race coefficient. Glucose [Mass/Vol]96 mg/dL65 - 99 mg/dLOhioHealth Grant Medical CenterInterpretation and review of laboratory resultsAbnoUPMC Children's Hospital of Pittsburgh SystemPotassium [Moles/Vol]3.8 mmol/L3.5 - 5.0 mmol/[facility] SystemProtein [Mass/Vol] 6.8 g/dL6.0 - 8.0 g/dLNovant Health New Hanover Regional Medical Centerodium [Moles/Vol]139 mmol/L134 - 146 mmol/[facility] SystemUrea nitrogen [Mass/Vol]12 mg/dL5 - 27 mg/dL [facility] CenterGlucose Glucometer (BldC) [Mass/Vol]on 27-88-3222Yywdogc [Mass/Vol]112 mg/aXUpip12 - 99 mg/dLOhioHealth Grant Medical CenterInterpretation and review of laboratory resultsAbnoKensington HospitalGlucose [Mass/Vol]112 mg/fOPdwe20-74OhjOfknofParkwood HospitalGlucose [Mass/Vol]105 mg/xLCjlc56 - 99 mg/dLOhioHealth Grant Medical CenterInterpretation and review of laboratory resultsAbConemaugh Nason Medical CenterGlucose [Mass/Vol]105 mg/pGTuun00-68PhfFucgvrParkwood HospitalGlucose [Mass/Vol]96 mg/dL65 - 99 mg/dLTorrance State Hospital Glucose [Mass/Vol]96 mg/tDDkjhwa45-69TpwPkdcxyParkwood HospitalHeparin unfractionated Chromogenic method Qn (PPP)on 89-85-4727Yabdvurxwbnbsd and review of laboratory resultsAbnoKensington HospitalANTI XA UFH0.93 IU/mLCritically high0.30-0.70Parkwood HospitalComment on above:Result Comment: Optimal time for testing is 6 hrs post dosage This test is specific for monitoring patients on UFH, and is not recommended for use with other Anti-Xa medications.Performed By: #### 25650-1 #### [facility] ([id number]) [address] [place], [place] [address]Ylmnhxkegngeuc and review of laboratory resultsAbnoKensington HospitalANTI XA UFH1.16 IU/mLCritically high 0.30-0.70Parkwood HospitalComment on above:Result Comment: Optimal time for testing is 6 hrs post dosage This test is specific for monitoring patients on UFH, and is not recommended for use with other Anti-Xa medications.Performed By: #### 62588-3 #### [facility] ([id number]) [address] [place], [place] [address]Uybsfnxqeoznot and review of laboratory resultsAbnormSelect Specialty Hospital - ErieANTI XA UFH1.29 IU/mLCritically high 0.30-0.70Parkwood HospitalComment on above:Result Comment: Optimal time for testing is 6 hrs post dosage This test is specific for monitoring patients on UFH, and is not recommended for use with other Anti-Xa medications.Performed By: #### 87460-2, 48570-1 #### [facility] ([id number]) [address] [place], [place] [address]BLCBTJUFNtg 79-38-6397Plapcgezr [Mass/Vol]2.3 mg/dLNormal1.8-2.6 Parkwood HospitalComment on above:Performed By: #### 41460-4, 16685-6 #### [facility] ([id number]) [address] [place], [place] [address]Arsaqotgztq 99-72-3416Zqmuxcfsp [Mass/Vol]2.3 mg/dL1.8 - 2.6 mg/dLOhioHealth Grant Medical CenterNo Panel Informationon 98-63-0243ZpqVedbdfAdena Fayette Medical CenterPOTASSIUMon 63-09-7688Kskwrwqxk [Moles/Vol]4.1 mmol/LNormal3.5-5.0 Parkwood HospitalComment on above:Performed By: #### 71881-8 #### [facility] ([id number]) [address] [place], [place] [address]Sjgujjphdqi 12-45-1293Jgzuuqztp [Moles/Vol]4.1 mmol/L3.5 - 5.0 mmol/LProMedOhioHealth Grant Medical CenterPotassium [Moles/Vol]on 65-92-0743FuiDanpcoAdena Fayette Medical CenterAnti XA unfractionated heparinon 90-27-1578Eehgknk unfractionated Chromogenic method Qn (PPP)1.33Critically Hospital Corporation of AmericaComment on above:Optimal time for testing is 6 hrs post dosage This test is specific for monitoring patients on UFH, and is not recommended for use with other Anti-Xa medications. Heparin unfractionated Chromogenic method Qn (PPP)1.24Critically [facility] Corporation [facility] AmericaComment on above:Optimal time for testing is 6 hrs post dosage This test is specific for monitoring patients on UFH, and is not recommended for use with other Anti-Xa medications. Heparin unfractionated Chromogenic method Qn (PPP)0.70[facility] Comment on above:Optimal time for testing is 6 hrs post dosage This test is specific for monitoring patients on UFH, and is not recommended for use with other Anti-Xa medications. Heparin unfractionated Chromogenic method Qn (PPP)1.93Critically Hospital Corporation of AmericaComment on above:Optimal time for testing is 6 hrs post dosage This test is specific for monitoring patients on UFH, and is not recommended for use with other Anti-Xa medications. CBC AND AUTO DIFFon 39-72-9418ZPMPJMEQ BASOPHIL0.0 X10E9/LNormal0.0-0.2ProMedica [facility] Lincoln HospitalComment on above:Performed By: #### 21764-8, #### [facility] ([id number]) [address] [place], [place] [address]FLWOPOYD NEUTROPHIL5.0 X10E9/LNormal1.5-6.6ProSelect Medical Specialty Hospital - Cleveland-FairhillComment on above:Performed By: #### 82767-7, #### [facility] ([id number]) [address] [place], [place] [address]Ghutcextu/100 WBC (Bld)0.3 %NormalParkwood Hospital Comment on above:Performed By: #### 91451-9, #### [facility] ([id number]) [address] [place], [place] [address]Vldepjhdynu (Bld) [#/Vol]0.4 10*3/uLNormal0.0-0.4ProSelect Medical Specialty Hospital - Cleveland-FairhillComment on above:Performed By: #### 14732-8, #### [facility] ([id number]) [address] [place], [place] [address]Kobbpfdqovm/100 WBC (Bld)5.5 %NormalParkwood Hospital Comment on above:Performed By: #### 08129-5, #### [facility] ([id number]) [address] [place], [place] [address]Uqpypmvpqwp distribution width (RBC) [Ratio]17.6 %High11.5-15.0 ProMbullock county hospitala [facility]aritan North Lincoln HospitalComment on above:Performed By: #### 77952-9, #### [facility] ([id number]) [address] [place], [place] [address]Jeyzgbpltn (Bld) [Volume fraction]24.6 %Mnj12-87OxvRaqvwpSelect Medical Specialty Hospital - Cleveland-FairhillComment on above:Performed By: #### 80514-3, #### [facility] ([id number]) [address] [place], [place] [address]Cbfkceapkh (Bld) [Mass/Vol]8.3 g/dLLow13.0-17.0Parkwood HospitalComment on above:Performed By: #### 18471-3, 74605-6 #### [facility] ([id number]) [address] [place], [place] [address]Admapjzxuuh (Bld) [#/Vol]1.6 10*3/uLNormal1.0-3.5ProMedica [facility] HospitalComment on above:Performed By: #### 84541-8, 65312-6 #### [facility] ([id number]) [address] [place], [place] [address]Xfoyhunmasq/100 WBC (Bld)21.7 %NormalProSelect Medical Specialty Hospital - [facility] Comment on above:Performed By: #### 09507-6, 76298-5 #### [facility] ([id number]) [address] [place], [place] [address]OAZ (RBC) [Entitic mass]32.7 qfFizdhq94-64WuaRyufoqSelect Medical Specialty Hospital - Cleveland-FairhillComment on above:Performed By: #### 23402-8, 01743-7 #### [facility] ([id number]) [address] [place], [place] [address]DFOA (RBC) [Mass/Vol]33.8 g/cIGwqnfv71-73NkoBwwwcrSelect Medical Specialty Hospital - Cleveland-FairhillComment on above:Performed By: #### 07263-5, 68602-5 #### [facility] ([id number]) [address] [place], [place] [address]HOJ (RBC) [Entitic vol]97 fCEsjctx60-147PiyRwpxok Baypark HospitalComment on above:Performed By: #### 87976-2, 22437-6 #### [facility] ([id number]) [address] [place], [place] [address]Mlmpqaouw (Bld) [#/Vol]0.4 10*3/uLNormal0-0.9ProSelect Medical Specialty Hospital - Cleveland-FairhillComment on above:Performed By: #### 79497-0, #### [facility] ([id number]) [address] [place], [place] [address]Ekygxsqxe/100 WBC (Bld)5.6 %[facility] Comment on above:Performed By: #### 17492-6, #### [facility] ([id number]) [address] [place], [place] [address]Vkjjmksbtrm/100 WBC (Bld)66.9 %[facility] Comment on above:Performed By: #### 17206-2, 36252-9 #### [facility] ([id number]) [address] [place], [place] [address]Hwmpwoho mean volume (Bld) [Entitic vol]9.7 fLNormal7-12 [facility] HospitalComment on above:Performed By: #### 82047-8, 78203-9 #### [facility] ([id number]) [address] [place], [place] [address]Dizhkuytx (Bld) [#/Vol]175 10*3/xEUzuxbq253-456JgbFpbmbb [facility]park HospitalComment on above:Performed By: #### 12786-8, #### [facility] ([id number]) [address] [place], [place] [address]IOV COUNT2.55 X10E12/LLow4.10-5.70[facility] Comment on above:Performed By: #### 56507-5, #### [facility] ([id number]) [address] [place], [place] [address]HKL (Bld) [#/Vol]7.5 10*3/uLNormal4.0-11.0Parkwood HospitalComment on above:Performed By: #### 99279-8, #### [facility] ([id number]) [address] [place], [place] [address]GAP auto differentialon 48-87-4340Gxkthgfcu (Bld) [#/Vol]0.0 10*3/[facility]FlintBasophils/100 WBC (Bld)0.3 %[facility] Medical CenterEosinophils (Bld) [#/Vol]0.4 10*3/[facility]-FlintEosinophils/100 WBC (Bld)5.5 %[facility] Medical CenterErythrocyte distribution width (RBC) [Ratio]17.6 %High11.5 - 15.0 %[facility] Medical CenterHematocrit (Bld) [Volume fraction]24.6 %Low39 - 49 %[facility] Medical CenterHemoglobin (Bld) [Mass/Vol]8.3 g/dLLow13.0 - 17.0 g/dLOhioHealth Grant Medical CenterInterpretation and review of laboratory resultsAbnormProtestant HospitalLymphocytes (Bld) [#/Vol]1.6 10*3/[facility]-FlintLymphocytes/100 WBC (Bld)21.7 %[facility] CenterMCH (RBC) [Entitic mass]32.7 pg27 - 34 [facility] HospitalMCHC (RBC) [Mass/Vol]33.8 g/dL32 - 36 g/dLOhioHealth Grant Medical CenterMCV (RBC) [Entitic vol]97 fL80 - 100 [facility] CenterMonocytes (Bld) [#/Vol]0.4 10*3/[facility]FlintMonocytes/100 WBC (Bld)5.6 %[facility] Medical CenterNeutrophils (Bld) [#/Vol]5.0 10*3/[facility]-FlintNeutrophils/100 WBC (Bld)66.9 % [facility] CenterPlatelet mean volume (Bld) [Entitic vol]9.7 fL7 - 12 fL [facility] CenterPlatelets (Bld) [#/Vol]175 10*3/[facility] RBC (Bld) [#/Vol]2.55 10*6/[facility] HospitalWBC corrected for nucl RBC Auto (Bld) [#/Vol]7.5PNew [facility] COMPREHENSIVE METABOLIC PANELon 36-05-5184Wykxfms [Mass/Vol]3.2 g/dLNormal 3.2-5.3ProMedMercy Health Tiffin Hospital HospitalComment on above:Performed By: #### 00365-7, #### [facility] ([id number]) [address] [place], [place] [address]KIB [Catalytic activity/Vol]101 U/OVxuyib16-162KgjFgicmiParkwood HospitalComment on above:Performed By: #### 56549-9, #### [facility] ([id number]) [address] [place], [place] [address]VIF [Catalytic activity/Vol]22 U/LNormal0-40ProSelect Medical Specialty Hospital - Cleveland-FairhillComment on above:Performed By: #### 61844-1, #### [facility] ([id number]) [address] [place], [place] [address]Qomph gap [Moles/Vol]8 mmol/LNormal5-15ProSelect Medical Specialty Hospital - Cleveland-FairhillComment on above:Performed By: #### 28899-1, #### [facility] ([id number]) [address] [place], [place] [address]HNM [Catalytic activity/Vol]31 U/LNormal0-41ProSelect Medical Specialty Hospital - Cleveland-FairhillComment on above:Performed By: #### 78760-7, #### [facility] ([id number]) [address] [place], [place] [address]Cszohczkn [Mass/Vol]1.0 mg/dLNormal0.3-1.2ProMedMercy Health Tiffin Hospital HospitalComment on above:Performed By: #### 13546-6, #### [facility] ([id number]) [address] [place], [place] [address]Mjufpch [Mass/Vol]9.1 mg/dLNormal8.5-10.5PMercy Health Anderson Hospital HospitalComment on above:Performed By: #### 52756-6, #### [facility] ([id number]) [address] [place], [place] [address]Goncfeah [Moles/Vol]103 mmol/JDnfjun14-038HtfVlmmybSelect Medical Specialty Hospital - Cleveland-FairhillComment on above:Performed By: #### 90963-6, #### [facility] ([id number]) [address] [place], [place] [address]KP8 [Moles/Vol]28 mmol/WZjxmgs00-03BhtXrpigfThe [facility] Comment on above:Performed By: #### 40885-1, #### [facility] ([id number]) [address] [place], [place] [address]Edzwymbqcv [Mass/Vol]1.34 mg/dLHigh0.70-1.20Parkwood HospitalComment on above:Result Comment: METHOD TRACEABLE TO IDMS STANDARD Performed By: #### 75745-0, 56921-3 #### [facility] ([id number]) [address] [place], [place] [address]UUN/1.73 sq M.predicted among non-blacks MDRD (S/P/Bld) [Vol rate/Area]55 mL/min/{1.73_m2}Low>59ProSelect Medical Specialty Hospital - Cleveland-FairhillComment on above: Result Comment: Reported eGFR is based on the CKD-EPI 1 equation that does not use a race coefficient.Performed By: #### 77902-2, #### [facility] ([id number]) [address] [place], [place] [address]Hlsmdye [Mass/Vol]109 mg/pMZuwo42-09FubApjtewParkwood Hospital Comment on above:Performed By: #### 72189-3, #### [facility] ([id number]) [address] [place], [place] [address]Hbqzzupir [Moles/Vol]4.2 mmol/LNormal3.5-5.0Park[facility] HospitalComment on above:Performed By: #### 34872-8, #### [facility] ([id number]) [address] [place], [place] [address]Bcsfzdc [Mass/Vol]7.1 g/dLNormal6.0-8.0Parkwood HospitalComment on above:Performed By: #### 47616-5, 41187-8 #### [facility] ([id number]) [address] [place], [place] [address]Zkxkpv [Moles/Vol]139 mmol/CLcqjml626-915KlrWewxcc Baypark HospitalComment on above:Performed By: #### 34031-3, 64020-6 #### [facility] ([id number]) [address] [place], [place] [address]Lyzk nitrogen [Mass/Vol]18 mg/dLNormal5-27ProSelect Medical Specialty Hospital - Cleveland-FairhillComment on above:Performed By: #### 51562-8, 71264-8 #### [facility] ([id number]) [address] [place], [place] [address]Bxtsobj echo study Procedureon 13-13-6595Ehpq EF Bzqmpcwix91 % [facility]aritan HospitalSensible Medical Innovations ZiuofkIS29 %[facility] HospitalSecureWaters SystemLV Diastolic Aiaimr76.00 mL [facility] HospitalSecureWaters SystemLV Systolic Netgwc25.80 mLSelect Medical Specialty Hospital - [facility] Rock'[facility] Rover Select Specialty HospitalLeft Ventricle: Systolic function is normal with an ejection fraction of 60-65%. The quantitative EF by 2D Hutchinson biplane is 63%. No obvious regional wall motion abnormalities. Pericardium: There is no pericardial effusion. Left Ventricle Systolic function is normal with an ejection fraction of 60-65%. The quantitative EF by 2D Hutchinson biplane is 63%. No obvious regional wall motion abnormalities. Left Atrium Left atrium is mildly dilated. Right Atrium Right atrium is mildly dilated. Mitral Valve The leaflets are mildly thickened. There is mild annular calcification. Tricuspid Valve The tricuspid valve was not well visualized. Aortic Valve The aortic valve is trileaflet. The leaflets are mildly calcified. Pulmonic Valve The pulmonic valve was not well visualized. Pericardium There is no pericardial effusion. Study Details A limited echo was performed using limited 2D. Comparison Compared to previous echocardiogram performed on 09/08/2023. Wall Scoring Baseline Score Index: 1.00 The left ventricular wall motion is normal.XCELERASelect Medical Specialty Hospital - YoungstownThermal [facility] Radiology Study observation (narrative)[facility] SystemComprehensive metabolic panelon [id number] [Mass/Vol]3.2 g/dL3.2 - 5.3 g/dLOhioHealth Grant Medical CenterALP [Catalytic activity/Vol]101 U/L39 - 130 U/[facility]ALT No additional P-5'-P [Catalytic activity/Vol]22 U/L0 - 40 U/[facility] HospitalAnion gap [Moles/Vol]8 mmol/L5 - 15 mmol/[facility] AST [Catalytic activity/Vol]31 U/L0 - 41 U/[facility] HospitalBilirubin [Mass/Vol]1.0 mg/dL0.3 - 1.2 mg/dLOhioHealth Grant Medical CenterCalcium [Mass/Vol]9.1 mg/dL8.5 - 10.5 mg/dLOhioHealth Grant Medical CenterChloride [Moles/Vol]103 mmol/L98 - 109 mmol/[facility] SystemCO2 [Moles/Vol]28 mmol/L22 - 32 mmol/[facility] HospitalCreatinine [Mass/Vol]1.34 mg/dLHigh0.70 - 1.20 mg/dLOhioHealth Grant Medical CenterComment on above:METHOD TRACEABLE TO [facility] STANDARDeGFR (CKD-EPI)non-race [id number] [place], [place] [address]Comment on above: Reported eGFR is based on the CKD-EPI 2020 equation that does not use a race coefficient. Glucose [Mass/Vol]109 mg/nHJoig09 - 99 mg/dLOhioHealth Grant Medical Center Interpretation and review of laboratory resultsAbnormalOhioHealth Grant Medical Center Potassium [Moles/Vol]4.2 mmol/L3.5 - 5.0 mmol/[facility] SystemProtein [Mass/Vol]7.1 g/dL6.0 - 8.0 g/dLNovant Health New Hanover Regional Medical Centerodium [Moles/Vol]139 mmol/L134 - 146 mmol/[facility] HospitalUrea nitrogen [Mass/Vol]18 mg/dL5 - 27 mg/dLOhioHealth Grant Medical CenterGlucose Glucometer (BldC) [Mass/Vol]on [id number] [Mass/Vol]115 mg/pGEbkv40 - 99 mg/dLOhioHealth Grant Medical Center Interpretation and review of laboratory resultsAbnoMayo Clinic Health System– Red CedarGlucose [Mass/Vol]115 mg/dEVzzj48-63XffDlyfjcParkwood HospitalGlucose [Mass/Vol]123 mg/fKHcar67 - 99 mg/dLOhioHealth Grant Medical Center Interpretation and review of laboratory resultsAbnoMayo Clinic Health System– Red CedarGlucose [Mass/Vol]123 mg/wMDdek16-45BgjLgwoirParkwood HospitalGlucose [Mass/Vol]103 mg/oSTogs27 - 99 mg/dLOhioHealth Grant Medical Center Interpretation and review of laboratory resultsAbMarshfield Medical Center/Hospital Eau ClaireGlucose [Mass/Vol]103 mg/yKSodx14-62IfdQjyznbParkwood HospitalGlucose [Mass/Vol]108 mg/yHZqnm32 - 99 mg/dLOhioHealth Grant Medical Center Interpretation and review of laboratory resultsAbMarshfield Medical Center/Hospital Eau ClaireGlucose [Mass/Vol]108 mg/zRJgtk08-94KxbFxllhpParkwood HospitalHeparin unfractionated Chromogenic method Qn (PPP)on 10-21-2023 Interpretation and review of laboratory resultsAbMarshfield Medical Center/Hospital Eau ClaireANTI XA UFH1.33 IU/mLCritically high0.30-0.70Parkwood HospitalComment on above:Result Comment: Optimal time for testing is 6 hrs post dosage This test is specific for monitoring patients on UFH, and is not recommended for use with other Anti-Xa medications.Performed By: #### 03137-6, 40917-5 #### [facility] ([id number]) [address] [place], [place] [address]Qievqbolxhbqyp and review of laboratory resultsAbnoKensington HospitalANTI XA UFH1.24 IU/mLCritically high 0.30-0.70Parkwood HospitalComment on above:Result Comment: Optimal time for testing is 6 hrs post dosage This test is specific for monitoring patients on UFH, and is not recommended for use with other Anti-Xa medications.Performed By: #### 83093-4, 05028-5 #### [facility] ([id number]) [address] [place], [place] [address]PrhSznfmuOhioHealth Grant Medical CenterANTI XA UFH0.70 IU/mLNormal0.30-0.70 Parkwood HospitalComment on above:Result Comment: Optimal time for testing is 6 hrs post dosage This test is specific for monitoring patients on UFH, and is not recommended for use with other Anti-Xa medications.Performed By: #### 09696-2, 63338-6 #### [facility] ([id number]) [address] [place], [place] [address]Vkczkgyfezjoxk and review of laboratory resultsAbnormalTorrance State HospitalMAGNESIUMon 16-27-3876Vxeqwsnwx [Mass/Vol] 2.5 mg/dLNormal1.8-2.6Parkwood HospitalComment on above:Performed By: #### 27698-6, 70641-7 #### [facility] ([id number]) [address] [place], [place] [address]Yhxcxmisotf 88-15-5951Pqgowbtkp [Mass/Vol]2.5 mg/dL1.8 - 2.6 mg/dLOhioHealth Grant Medical CenterNo Panel Informationon 09-16-0360OlkCyxgpaAdena Fayette Medical CenterAPTTon 82-91-1452nHDP Coag (PPP) [Time]42 [facility] Hospital - DanvilleCB AND AUTO DIFFon 17-73-9762QADWFCYK BASOPHIL0.1 X10E9/LNormal0.0-0.2PSt. Vincent HospitalComment on above:Performed By: #### 3040-3, CBCA, 77881-3, 44514-9, 64447-8, CMP ####[facility] ([id number])[address] [place] [address] 20344BDBBBRVX NEUTROPHIL8.3 X10E9/LHigh1.5-6.6 [facility] HospitalComment on above:Performed By: #### 3040-3, CBCA, 40722-5, 59213-5, 27032-4, CMP ####[facility] ([id number])[address] [place] [address] 73179Uogwqdrme/100 WBC (Bld)1.3 % NormalProMethodist Hospital AtascosaComment on above:Performed By: #### 3040-3, CBCA, 30191-3, 81728-8, 94659-9, CMP ####[facility] ([id number])[address] [place] [address] 31922Yxudgixukcv (Bld) [#/Vol]0.1 10*3/uLNormal0.0-0.4ProMethodist Hospital AtascosaComment on above: Performed By: #### 3040-3, CBCA, 73411-9, 03982-6, 95276-6, CMP ####[facility] ([id number])[address] [place] [address] 60229Mdgbcybcfub/100 WBC (Bld)1.0 %NormalProMethodist Hospital AtascosaComment on above:Performed By: #### 3040-3, CBCA, 96868-9, 21147-8, 90823-5, CMP ####[facility] ([id number])[address] [place] [address] 15630Dptbmvblyad distribution width (RBC) [Ratio]17.7 %High 11.5-15.0ProMethodist Hospital AtascosaComment on above:Performed By: #### 3040-3, CBCA, 51267-8, 61525-9, 35097-7, CMP ####[facility] ([id number])[address] [place] [address] 06938Eyudrgqsgl (Bld) [Volume fraction]26.4 %Ktt27-06GtxQahorrMethodist Hospital AtascosaComment on above: Performed By: #### 3040-3, CBCA, 80892-5, 11308-8, 52284-7, CMP ####[facility] ([id number])[address] [place] [address], [place] [address]Kgywchogqc (Bld) [Mass/Vol]8.9 g/dLLow13.0-17.0[facility] Comment on above:Performed By: #### 3040-3, CBCA, 06456-9, 88490-5, 57091-1, CMP ####[facility] ([id number])[address] [place] [address] 97778Kmetwighmcy (Bld) [#/Vol]1.9 10*3/uLNormal1.0-3.5ProMed[facility] Norris Jr. Cancer HospitalComment on above:Performed By: #### 3040-3, CBCA, 99335-5, 36615-2, 85146-0, CMP ####[facility] ([id number])[address] [place] [address] 66184Baxwxazxtvm/100 WBC (Bld)16.9 %Normal ProMLanterman Developmental CenterComment on above:Performed By: #### 3040-3, CBCA, 06579-9, 32476-4, 13740-4, CMP ####[facility] ([id number])[address] [place] [address] 79440DYH (RBC) [Entitic mass]32.7 pg Ijphia88-58LoaLsekpwMethodist Hospital AtascosaComment on above:Performed By: #### 3040-3, CBCA, 08271-3, 37104-9, 84177-9, CMP ####[facility] ([id number])[address] [place] [address] 52529TYMN (RBC) [Mass/Vol] 33.8 g/mYYzhpws05-74SsyHysjveMethodist Hospital AtascosaComment on above:Performed By: #### 3040-3, CBCA, 46649-8, 35135-3, 73014-5, CMP ####[facility] ([id number])[address] [place] [address] 25315FOM (RBC) [Entitic vol]97 xVVyqijz53-417PcmRctubi Fremont HospitalComment on above: Performed By: #### 3040-3, CBCA, 51382-8, 98546-3, 56231-8, CMP ####[facility] ([id number])[address] [place] [address] 99646Cjrkahpnh (Bld) [#/Vol]0.6 10*3/uLNormal0-0.9[facility] Comment on above:Performed By: #### 3040-3, CBCA, 21047-9, 60478-1, 85445-1, CMP ####[facility] ([id number])[address] [place] [address] 55353Ktddzddpg/100 WBC (Bld)5.7 %NormalProMethodist Hospital AtascosaComment on above:Performed By: #### 3040-3, CBCA, 56168-9, 30788-9, 35502-6, CMP ####[facility] ([id number])[address] [place] [address] 79266Ndooogadrvg/100 WBC (Bld)75.1 %NormalProMethodist Hospital AtascosaComment on above:Performed By: #### 3040-3, CBCA, 70530-6, 81093-5, 43487-1, CMP ####[facility] ([id number])[address] [place] [address] 35688Yadbpnmi mean volume (Bld) [Entitic vol]9.9 fLNormal7-12ProMedica [facility] Norris Jr. Cancer HospitalComment on above:Performed By: #### 3040- 3, CBCA, 82655-7, 14882-0, 53577-8, CMP ####[facility] ([id number])[address] [place] [address] 19617Ifmcrnawm (Bld) [#/Vol] 204 10*3/nFYwzynb101-052HejGzgjmm [facility]remont HospitalComment on above:Performed By: #### 3040-3, CBCA, 06355-9, 84195-8, 29211-2, CMP ####[facility] ([id number])[address] [place] [address] 84572MAX COUNT2.73 X10E12/LLow4.10-5.70ProMethodist Hospital AtascosaComment on above:Performed By: #### 3040-3, CBCA, 68007-0, 48313-7, 21513-0, CMP ####[facility] ([id number])[address] [place] [address] 24170TAX (Bld) [#/Vol] 11.0 10*3/uLNormal4.0-11.0ProMethodist Hospital AtascosaComment on above:Performed By: #### 3040-3, CBCA, 05443-8, 81047-5, 17861-4, CMP ####[facility] ([id number])[address] [place] [address] 05620 COMPREHENSIVE METABOLIC PANELon 69-53-1480Iipfvde [Mass/Vol]3.6 g/dLNormal 3.2-5.3PSt. Vincent HospitalComment on above:Performed By: #### 3040-3, CBCA, 57628-6, 72265-6, 92075-8, CMP ####[facility] ([id number])[address] [place] [address] 38738CHX [Catalytic activity/Vol]105 U/MUuiste61-743FuqVoasjtMethodist Hospital AtascosaComment on above: Performed By: #### 3040-3, CBCA, 89402-3, 69003-2, 50661-3, CMP ####[facility] ([id number])[address] [place] [address] 33532VFE [Catalytic activity/Vol]28 U/LNormal0-40ProMethodist Hospital [facility]a Comment on above:Performed By: #### 3040-3, CBCA, 83892-0, 16368-7, 56116-2, CMP ####[facility] ([id number])[address] [place] [address], [place] [address]Jgsut gap [Moles/Vol]13 mmol/LNormal5-15ProMethodist Hospital AtascosaComment on above:Performed By: #### 3040-3, CBCA, 00217-6, 21122-6, 53391-2, CMP ####[facility] ([id number])[address] [place] [address] [place] [address]QAM [Catalytic activity/Vol]42 U/LHigh0-41ProMethodist Hospital AtascosaComment on above:Performed By: #### 3040-3, CBCA, 91439-8, 73938-7, 93147-3, CMP ####[facility] ([id number])[address] [place] [address], [place] [address]Rwkcphibv [Mass/Vol]1.3 mg/dLHigh0.3-1.2 [facility]. Cancer HospitalComment on above:Performed By: #### 3040-3, CBCA, 49881-5, 71084-5, 32315-0, CMP ####[facility] ([id number])[address] [place] [address] [place] [address]Ddeetng [Mass/Vol]8.7 mg/dLNormal 8.5-10.5Pro[facility] Jr. Cancer HospitalComment on above:Performed By: #### 3040-3, CBCA, 27081-2, 62911-2, 75194-3, CMP ####[facility] ([id number])[address] [place] [address], [place] [address]Npczmkyv [Moles/Vol]95 mmol/TMrl37-970IabTqughtMethodist Hospital AtascosaComment on above:Performed By: #### 3040-3, CBCA, 33588-7, 78468-9, 45010-9, CMP ####[facility] ([id number])[address] [place] [address] 86276DI9 [Moles/Vol]27 mmol/NEadcyk34-48BrfYzvpzi [facility]. Cancer HospitalComment on above:Performed By: #### 3040-3, MARVA, 28062-2, 75721-1, 73205-7, CMP ####[facility] ([id number])[address] [place] [address] 28463Vrgjukhwwe [Mass/Vol]1.70 mg/dLHigh0.70-1.20ProMethodist Hospital AtascosaComment on above: Result Comment: METHOD TRACEABLE TO IDMS STANDARDPerformed By: #### 3040-3, MARVA, 34564-7, 46205-9, 94925-3, CMP ####[facility] ([id number])[address] [place] [address] 26977VQE/1.73 sq M.predicted among non-blacks MDRD (S/P/Bld) [Vol rate/Area]42 mL/min/{1.73_m2}Low>59 ProMLanterman Developmental CenterComment on above:Result Comment: Reported eGFR is based on theCKD-EPI 2020 equation that doesnot use a race coefficient.Performed By: #### 3040-3, MARVA, 54601-5, 33513-3, 06371-8, CMP ####[facility] ([id number])[address] [place] [address] 91646Oorslqf [Mass/Vol]130 mg/pFXaur78-49TkjBmmzcsMethodist Hospital AtascosaComment on above:Performed By: #### 3040-3, CBCA, 46672-2, 57651-6, 14980-4, CMP ####[facility] ([id number])[address] [place] [address] 09434 Potassium [Moles/Vol]3.0 mmol/LLow3.5-5.0Gu[facility] Memorial HospitalComment on above:Performed By: #### 3040-3, CBCA, 13062-3, 87096-1, 60186-3, CMP ####[facility] ([id number])[address] [place] [address] 41595Mdxxjhn [Mass/Vol]7.8 g/dLNormal6.0-8.0[facility] Memorial HospitalComment on above:Performed By: #### 3040-3, CBCA, 36787-8, 25229-4, 43492-6, CMP ####[facility] ([id number])[address] [place] [address] 44875Irsdwq [Moles/Vol]135 mmol/JVpkylq550-636ZllJkdsga [facility]remont HospitalComment on above:Performed By: #### 3040-3, CBCA, 59740-1, 68333-0, 49154-8, CMP ####[facility] ([id number])[address] [place] [address] 36017Tnao nitrogen [Mass/Vol]20 mg/dLNormal5-27 ProMLanterman Developmental CenterComment on above:Performed By: #### 3040-3, CBCA, 27799-9, 44983-1, 63914-6, CMP ####[facility] ([id number])[address] [place] [address] 40173PV Chest limited WO contraston 10-20-2023 History: Respiratory illness, nondiagnostic xray Exam/Technique: Serial axial CT images of the chest were obtained without IV dye. All CT scans at this facility use dose modulation, iterative reconstruction, and/or weight based dosing when appropriate to reduce radiation dose to as low as reasonably achievable. Automated exposure control was utilized. Computer aided detection for pulmonary nodules?was performed utilizing [employer] software.? Comparison: 10/04/2023 Findings: Neck base is grossly unremarkable.. Midline sternotomy wires are grossly intact. There is no gross soft tissue abnormality at the surgical bed there are cardiac surgical changes with no significant cardiomegaly or pericardial effusion.There are severe coronary artery calcifications. There is moderate degree of diffuse atherosclerotic disease and calcified intimal plaque throughoutthoracic aorta with maximum transverse diameter of 3.9 cm of the ascending segment. There is no pathological mediastinal lymphadenopathy by size criteria. There is small left-sided pleural effusion with left lower lobe alveolar opacity possibly atelectasis versus consolidation. Findings are less prominent compared to prior exam. There are central groundglass opacities throughout both lungs raising concern for pulmonary edema or interstitial pneumonia. There is 6 mm right lower lobe pulmonary nodule. This is best identified at axial image #111 series2. A non-calcified 6 mm solid nodule in the right lower lobe is indeterminate. There is moderate fatty infiltration of the pancreas. There is heterogeneous and irregular hepatic contour. Underlying liver cirrhosis cannot be excluded. Spleen and adrenal glands are unremarkable. There are few calcified nonobstructing bilateral renal stones with average diameter of 2 to 3 mm. IMPRESSION: There is interval decrease in the degree of left-sided pleural effusion and left alveolar opacity possibly atelectasis versus consolidation. There is interval development of central bilateral groundglass opacity raising concern for pulmonary edema or interstitial pneumonia. Indeterminate solid pulmonary nodule measuring 6 mm. In a patient of unknown risk level with a solid nodule of 6-8 mm, recommend CT at 6-12 months. In a low- risk patient, then consider CT at 18-24 months. In a high-risk patient, if the nodule is stable at 6-12 months, recommend CT at 18-24 months. Sangeethahojerzy H, et al. Guidelines for Management of Incidental Pulmonary Nodules Detected on CT Images:From the Fleischner Society 2017. Radiology. 2017 Umesh;284(1):228-243. Finalized by Elizabeth Pfeiffer MD on 10/20/2023 7:12 Elizabeth James MD - 10/20/2023 History: Respiratory illness, nondiagnostic xray Exam/Technique: Serial axial CT images of the chest were obtained without IV dye. All CT scans at this facility use dose modulation, iterative reconstruction, and/or weight based dosing when appropriate to reduce radiation dose to as low as reasonably achievable. Automated exposure control was utilized. Computer aided detection for pulmonary nodules?was performed utilizing [employer] software.? Comparison: 10/04/2023 Findings: Neck base is grossly unremarkable.. Midline sternotomy wires are grossly intact. There is no gross soft tissue abnormality at the surgical bed there are cardiac surgical changes with no significant cardiomegaly or pericardial effusion.There are severe coronary artery calcifications. There is moderate degree of diffuse atherosclerotic disease and calcified intimal plaque throughoutthoracic aorta with maximum transverse diameter of 3.9 cm of the ascending segment. There is no pathological mediastinal lymphadenopathy by size criteria. There is small left-sided pleural effusion with left lower lobe alveolar opacity possibly atelectasis versus consolidation. Findings are less prominent compared to prior exam. There are central groundglass opacities throughout both lungs raising concern for pulmonary edema or interstitial pneumonia. There is 6 mm right lower lobe pulmonary nodule. This is best identified at axial image #111 series2. A non-calcified 6 mm solid nodule in the right lower lobe is indeterminate. There is moderate fatty infiltration of the pancreas. There is heterogeneous and irregular hepatic contour. Underlying liver cirrhosis cannot be excluded. Spleen and adrenal glands are unremarkable. There are few calcified nonobstructing bilateral renal stones with average diameter of 2 to 3 mm. IMPRESSION: There is interval decrease in the degree of left-sided pleural effusion and left alveolar opacity possibly atelectasis versus consolidation. There is interval development of central bilateral groundglass opacity raising concern for pulmonary edema or interstitial pneumonia. Indeterminate solid pulmonary nodule measuring 6 mm. In a patient of unknown risk level with a solid nodule of 6-8 mm, recommend CT at 6-12 months. In a low- risk patient, then consider CT at 18-24 months. In a high-risk patient, if the nodule is stable at 6-12 months, recommend CT at 18-24 months. Seymour H, et al. Guidelines for Management of Incidental Pulmonary Nodules Detected on CT Images:From the Fleischner Society 2017. Radiology. 2017 Umesh;284(1):228-243. Finalized by Elizabeth Pfeiffer MD on 10/20/2023 7:12 PM [employer] / cTraderRadiology Study observation (narrative)[employer] / cTraderKS Chest limited WO contrastOrdered By: Elizabeth Pfeiffer on 10-20-2023 [employer] / [employer] Work Phone: CT ION CHEST WO CONTon 52-19-5093MP ION CHEST WO CONT CT ION CHEST WO CONT History: Respiratory illness, nondiagnostic xray Exam/Technique: Serial axial CT images of the chest were obtained without IV dye. All CT scans at this facility use dose modulation, iterative reconstruction, and/or weight based dosing when appropriate to reduce radiation dose to as low as reasonably achievable. Automated exposure control was utilized. Computer aided detection for pulmonary nodules?was performed utilizing [employer] software.? Comparison: 10/04/2023 Findings: Neck base is grossly unremarkable.. Midline sternotomy wires are grossly intact. There is no gross soft tissue abnormality at the surgical bed there are cardiac surgical changes with no significant cardiomegaly or pericardial effusion.There are severe coronary artery calcifications. There is moderate degree of diffuse atherosclerotic disease and calcified intimal plaque throughoutthoracic aorta with maximum transverse diameter of 3.9 cm of the ascending segment. There is no pathological mediastinal lymphadenopathy by size criteria. There is small left-sided pleural effusion with left lower lobe alveolar opacity possibly atelectasis versus consolidation. Findings are less prominent compared to prior exam. There are central groundglass opacities throughout both lungs raising concern for pulmonary edema or interstitial pneumonia. There is 6 mm right lower lobe pulmonary nodule. This is best identified at axial image #111 series2. A non-calcified 6 mm solid nodule in the right lower lobe is indeterminate. There is moderate fatty infiltration of the pancreas. There is heterogeneous and irregular hepatic contour. Underlying liver cirrhosis cannot be excluded. Spleen and adrenal glands are unremarkable. There are few calcified nonobstructing bilateral renal stones with average diameter of 2 to 3 mm. IMPRESSION: There is interval decrease in the degree of left-sided pleural effusion and left alveolar opacity possibly atelectasis versus consolidation. There is interval development of central bilateral groundglass opacity raising concern for pulmonary edema or interstitial pneumonia. Indeterminate solid pulmonary nodule measuring 6 mm. In a patient of unknown risk level with a solid nodule of 6-8 mm, recommend CT at 6-12 months. In a low- risk patient, then consider CT at 18-24 months. In a high-risk patient, if the nodule is stable at 6-12 months, recommend CT at 18-24 months. Seymour Garcia et al. Guidelines for Management of Incidental Pulmonary Nodules Detected on CT Images:From the Fleischner Society 2017. Radiology. 2017 Aug;284(1):228-243. Finalized by Elizabeth Pfeiffer MD on 10/20/2023 7:12 PMNormalParkwood HospitalECG 12 leadon 22-69-2179NICKDKCOTPYEERYllEikvhv Health SystemFibrin D- dimer DDU (PPP) [Mass/Vol]on 10-20-2023 OLKTD4917 ng/mL DDUHigh<255Guernsey Memorial HospitalComment on above:Result Comment: Results >=255ng/mL DDU: Results may beindicative of the presence of VTE. The useof the Wells score and further diagnostictests should be considered. Elevated D-Dimerlevels can alsobe associated with DIC,neoplasm, , trauma and liver disease.Elevated levels of rheumatoid factor may leadto an overestimation of the D-Dimer level. Performed By: #### 3040-3, CBCA, 49980-4, 53627-2, 84757-3, CMP ####[facility] ([id number])[address] [place], [place] [address]Glucose Glucometer (BldC) [Mass/Vol]on 44-72-0089Sswvako [Mass/Vol]152 mg/yVAcgj52 - 99 mg/dLOhioHealth Grant Medical CenterInterpretation and review of laboratory resultsAbConemaugh Nason Medical CenterGlucose [Mass/Vol]152 mg/tXUhbo37-29RnjVadpccParkwood HospitalGlucose [Mass/Vol]153 mg/bCSujv77 - 99 mg/dLOhioHealth Grant Medical CenterInterpretation and review of laboratory resultsAbConemaugh Nason Medical CenterGlucose [Mass/Vol]153 mg/yEFtsf88-28HhdUxixfrParkwood HospitalGlucose [Mass/Vol]107 mg/zNEemg57 - 99 mg/dLOhioHealth Grant Medical CenterInterpretation and review of laboratory resultsAbConemaugh Nason Medical CenterGlucose [Mass/Vol]107 mg/pMKnia89-63ZjyKqhpqmParkwood HospitalHEMOGLOBINon 10-20-2023 Hemoglobin (Bld) [Mass/Vol]8.8 g/dLLow13.0-17.0Parkwood HospitalComment on above:Performed By: #### 718-7, PLTCT, PINR, 43379-7 #### [facility] ([id number]) [address] [place], [place] [address]Dqaahtfmbxqo 21-87-3293Rlewespusp (Bld) [Mass/Vol]8.8 g/dLLow 13.0 - 17.0 g/dLOhioHealth Grant Medical CenterHemoglobin (Bld) [Mass/Vol]on 10-20-2023 Interpretation and review of laboratory resultsAbnormalProAdams County Regional Medical Center Heparin unfractionated Chromogenic method Qn (PPP)on 83-56-8176SOKJ XA UFH1.93 IU/mLCritically high0.30-0.70ProSelect Medical Specialty Hospital - Cleveland-FairhillComment on above:Result Comment: Optimal time for testing is 6 hrs post dosage This test is specific for monitoring patients on UFH, and is not recommended for use with other Anti-Xa medications.Performed By: #### 70142-4, 65830-7 #### [facility] ([id number]) [address] [place], [place] [address]UHLPQCdk 61-98-4474Kyjkvi [Catalytic activity/Vol]61 U/LHigh 17-40ProMethodist Hospital AtascosaComment on above:Performed By: #### 3040-3, CBCA, 00735-8, 33156-0, 24767-5, CMP ####[facility] ([id number])[address] [place] [address] 905[address]Rssppry (P mayra) [Moles/Vol]on 97-23-9385Wwudpip [Moles/Vol]1.1 mmol/LNormal0.4-2.0[facility] Comment on above:Performed By: #### 49616-7 ####[facility] ([id number])[address] [place] [address] 57364CXPAAMN W/REFLEX 3.4 mmol/LHigh0.4-2.0ProMethodist Hospital AtascosaComment on above:Performed By: #### 87010-0 ####[facility] ([id number])[address] [place] [address] 87776GEZHWETBPgd 00-25-4376Hpfmjytnz [Mass/Vol]2.6 mg/dL Normal1.8-2.6ProSelect Medical Specialty Hospital - Cleveland-FairhillComment on above:Performed By: #### 37347-4, 93186-6 #### [facility] ([id number]) [address] [place], [place] [address]Gxsledjyn [Mass/Vol]1.2 mg/dLLow1.8-2.6ProSelect Medical Specialty Hospital - Cleveland-FairhillComment on above:Performed By: #### 94727-0, 97251-6 #### [facility] ([id number]) [address] [facility] [place], [place] [address]Xzdlfylygmf 37-76-1260Ybydknrsw [Mass/Vol]2.6 mg/dL1.8 - 2.6 mg/dLOhioHealth Grant Medical CenterMagnesium [Mass/Vol]1.2 mg/dLLow1.8 - 2.6 mg/dL [facility] Grant Medical CenterMagnesium [Mass/Vol]on 39-98-9767ZegZlbqlhAdena Fayette Medical Center Interpretation and review of laboratory resultsAbnormalLehigh Valley Hospital - PoconoNM Lung Perfusionon 78-13-6379SHXGEJOZO LUNG SCAN COMPARISON: None. CORRELATION: Chest radiograph 10/20/2023 HISTORY: Chest pain, shortness breath. TECHNIQUE: 5.6 mCi technetium 99m MAA injected intravenously without reported complication. Planar images of the lungs obtained in multiple projections for both ventilation and perfusion. FINDINGS: Normal heterogeneous uptake seen within the right lung. Large perfusion defect involving a majorityof the left mid/lower lung. Of note, patient has evidence of moderate left pleural effusion on prior chest x-ray which may be causing significant compressive atelectasis IMPRESSION: * Large perfusion defect involving majority of the left mid/lower lung with underlying pleural effusion on the chest radiograph.. * Intermediate probability for pulmonary embolism. * A central or hilar obstructing lesion to the left lower lobe cannot be excluded in the setting. * Ventilation imaging was not performed. Approved by Resident Pavan Durbin DO on 10/20/2023 2:00 PM Kye Marcial MD have personally reviewed the image(s) and agree with and/or edited the report Finalized by Kye Kapadia MD on 10/20/2023 2:20 PMSKye De La Garza MD - 10/20/2023 PERFUSION LUNG SCAN COMPARISON: None. CORRELATION: Chest radiograph 10/20/2023 HISTORY: Chest pain, shortness breath. TECHNIQUE: 5.6 mCi technetium 99m MAA injected intravenously without reported complication. Planar images of the lungs obtained in multiple projections for both ventilation and perfusion. FINDINGS: Normal heterogeneous uptake seen within the right lung. Large perfusion defect involving a majorityof the left mid/lower lung. Of note, patient has evidence of moderate left pleural effusion on prior chest x-ray which may be causing significant compressive atelectasis IMPRESSION: * Large perfusion defect involving majority of the left mid/lower lung with underlying pleural effusion on the chest radiograph.. * Intermediate probability for pulmonary embolism. * A central or hilar obstructing lesion to the left lower lobe cannot be excluded in the setting. * Ventilation imaging was not performed. Approved by Resident Pavan Durbin DO on 10/20/2023 2:00 PM Kye Marcial MD have personally reviewed the image(s) and agree with and/or edited the report Finalized by Kye Kapadia MD on 10/20/2023 2:20 PM [facility] CenterRadiology Study observation (narrative)[facility] Medical CenterNM Lung PerfusionOrdered By: Kye Kapadia on 50-40-8528VsdEqccjsAdena Fayette Medical Center Work Phone: NM PULM PERFUSION SCANon 55-63-3741RF PULM PERFUSION SCANNM PULM PERFUSION SCAN PERFUSION LUNG SCAN COMPARISON: None. CORRELATION: Chest radiograph 10/20/2023 HISTORY: Chest pain, shortness breath. TECHNIQUE: 5.6 mCi technetium 99m MAA injected intravenously without reported complication. Planar images of the lungs obtained in multiple projections for both ventilation and perfusion. FINDINGS: Normal heterogeneous uptake seen within the right lung. Large perfusion defect involving a majorityof the left mid/lower lung. Of note, patient has evidence of moderate left pleural effusion on prior chest x-ray which may be causing significant compressive atelectasis IMPRESSION: * Large perfusion defect involving majority of the left mid/lower lung with underlying pleural effusion on the chest radiograph.. * Intermediate probability for pulmonary embolism. * A central or hilar obstructing lesion to the left lower lobe cannot be excluded in the setting. * Ventilation imaging was not performed. Approved by Resident Pavan Durbin DO on 10/20/2023 2:00 PM I, Kye Kapadia MD have personally reviewed the image(s) and agree with and/or edited the report Finalized by Kye Kapadia MD on 10/20/2023 2:20 PMNormalProSelect Medical Specialty Hospital - Cleveland-FairhillNatriuretic peptide B [Mass/Vol]on 03-87-5936Zhktyxublqb peptide B (Bld) [Mass/Vol]104 pg/mLHigh<100.0ProMethodist Hospital AtascosaComment on above: Performed By: #### 3040-3, CBCA, 91069-5, 10899-7, 82672-5, CMP ####[facility] ([id number])[address] [place] [address] 17172Uy Panel Informationon 58-75-5567Zobzjvmckhhsip and review of laboratory resultsAbnormalProMediLakeHealth TriPoint Medical Center SystemProMediMohansic State HospitalProUniversity Hospitals Health System SystemPLATELET COUNT AND MPVon 41-41-5463Dghqemdk mean volume (Bld) [Entitic vol]9.7 fLNormal7-12ProMedica [facility] Lincoln HospitalComment on above:Performed By: #### 718-7, PLTCT, PINR, 88048-8 #### [facility] ([id number]) [address] [place] [address] 81556Odtbvvilh (Bld) [#/Vol]176 10*3/jGIcohxd091-770IrbPnczom Baypark HospitalComment on above:Performed By: #### 718-7, PLTCT, PINR, 49718-8 #### [facility] ([id number]) [address] [place], [place] [address]MZVHHFYYUho 44-26-9770Ywljzrvmy [Moles/Vol]3.5 mmol/LNormal 3.5-5.0ProSelect Medical Specialty Hospital - Cleveland-FairhillComment on above:Performed By: #### 06588-1, 54776-0 #### [facility] ([id number]) [address] [place], [place] [address]Mpygbyuin [Moles/Vol]3.1 mmol/LLow3.5-5.0ProSelect Medical Specialty Hospital - Cleveland-FairhillComment on above:Performed By: #### 2823-3 #### [facility] ([id number]) [address] [place], [place] [address]UDNHENE AND INRon 08-25-0301EES Coag (PPP) [Relative time]1.2 {INR}High0.8-1.1PThe Bellevue HospitalComment on above:Performed By: #### 718-7, PLTCT, PINR, 63885-2 #### [facility] ([id number]) [address] [place], [place] [address]WQ Coag (PPP) [Time]13.4 sHigh9.8-13.2PThe [facility] Comment on above:Performed By: #### 718-7, PLTCT, PINR, 17920-4 #### [facility] ([id number]) [address] [place], [place] [address]Ctimailr counton 36-26-0260Xdpqsofs mean volume (Bld) [Entitic vol]9.7 fL7 - 12 [facility] SystemPlatelets (Bld) [#/Vol]176 10*3/uL [facility]ica Health SystemPotassiumon 46-21-4397Hzlolkfda [Moles/Vol]3.5 mmol/L3.5 - 5.0 mmol/LProMedica Health SystemPotassium [Moles/Vol]3.1 mmol/LLow3.5 - 5.0 mmol/Critical access hospitaloMedBarnesville Hospital SystemPotassium [Moles/Vol]on 59-63-3737VmrGjkyfv Health SystemInterpretation and review of laboratory resultsAbnormalProMediKindred Hospital Bay Area-St. PetersburgProtime & INRon 81-76-5561UMX Coag (PPP) [Relative time]1.2 {INR}Dominion HospitalPT Coag (PPP) [Time]13.4 [facility] - DanvilleTroponin I, High Sensitivity 3 Houron 98-90-7798Xmfgvtct I.cardiac High sensitivity method [Mass/Vol]32 ng/LHighNINF - 21 ng/LProMedica Mclaren Bay RegionComment on above: Elevations of hs-Troponin may be due to causes other than myocardial ischemia. Recommend serial hs-Troponin testing be performed. For the initial evaluation and management of chest pain patients, refer to the algorithms linked below. Emergency Patient: https://www.[employer]/dv/dl.aspx?h=3008804&dh=1cc5a&w=67540&uh=acaea Inpatient: https://www.[employer]/dv/dl.aspx?n=3287237&dh=f72e7&j=99452&uh=acaea Troponin I.cardiac High sensitivity method [Mass/Vol]37 ng/LHighNINF - 21 ng/L [facility] Medical CenterComment on above: Elevations of hs-Troponin may be due to causes other than myocardial ischemia. Recommend serial hs-Troponin testing be performed. For the initial evaluation and management of chest pain patients, refer to the algorithms linked below. Emergency Patient: https://www.[employer]/dv/dl.aspx?u=0393096&dh=1cc5a&c=47449&uh=acaea Inpatient: https://www.[employer]/dv/dl.aspx?j=0434728&dh=f72e7&d=78662&uh=acaea Troponin I.cardiac High sensitivity method [Mass/Vol]on 22-32-9644Tgyhprgzfzdifz and review of laboratory resultsAbConemaugh Nason Medical Center3 HOUR TROP I, HIGH BORSLORFNXG63 ng/LHigh<21[facility] Comment on above:Result Comment: Elevations of hs-Troponin may be due to causes other than myocardial ischemia. Recommend serial hs-Troponin testing be performed. For the initial evaluation and management of chest pain patients, refer to the algorithms linked below. Emergency Patient: https://www.[employer]/dv/dl.aspx?o=9404661&dh=1cc5a&d=06461&uh=acaea Inpatient: https://www.[employer]/dv/dl.aspx?p=7916255&dh=f72e7&a=49391&uh=acaeaPerformed By: #### 59788-4 #### [facility] ([id number]) [address] [facility] [place], [place] [address]Qsnipnbttfgujb and review of laboratory resultsAbnoKensington Hospital3 HOUR TROP I, HIGH EARLULUPQUU41 ng/LHigh <21[facility]wood HospitalCompontiac general hospital on above:Result Comment: Elevations of hs-Troponin may be due to causes other than myocardial ischemia. Recommend serial hs-Troponin testing be performed. For the initial evaluation and management of chest pain patients, refer to the algorithms linked below. Emergency Patient: https://www.[employer]/dv/dl.aspx?z=6263064&dh=1cc5a&u=07329&uh=acaea Inpatient: https://www.[employer]/dv/dl.aspx?m=5603632&dh=f72e7&d=14369&uh=acaeaPerformed By: #### 78562-6, 40071-2 #### [facility] ([id number]) [address] [place], [place] [address] HOUR TROP I, HIGH MLDKDRRVWRF74 ng/LHigh<21[facility] HospitalCompontiac general hospital on above:Result Comment: Elevations of hs-Troponin may be due to causesother than myocardial ischemia.Recommend serial hs-Troponin testing be performed.For the initial evaluation and management of chestpain patients, refer to the algorithms linked below.Emergency Patient:https://www.[employer]/dv/dl.aspx?d =7142206&dh=1cc5a&d=15029&uh=acaeaInpatient:https://www.[employer]/dv/dl.aspx? e=8877185&dh=f72e7&v=37051&uh=acaeaPerformed By: #### 47193-6 ####[facility] ([id number])[address] [place] [address] 24740UIPZLEYM I, HIGH UBTNGLSSMWT11 ng/LHigh<21[facility] Memorial HospitalComment on above:Result Comment: Elevations of hs-Troponin may be due to causesother than myocardial ischemia.Recommend serial hs-Troponin testing be performed.For the initial evaluation and management of chestpain patients, refer to the algorithms linked below.Emergency Patient:https://www.[employer]/dv/dl.aspx?d =4029060&dh=1cc5a&k=11884&uh=acaeaInpatient:https://www.[employer]/dv/dl.aspx? i=2449045&dh=f72e7&d=14845&uh=acaeaPerformed By: #### 3040-3, CBCA, 48912-6, 95231-0, 65817-3, CMP ####[facility] ([id number])[address] [place] [address] 95160BPSCMTOFDNsn 62-95-7184Qhmbnhcxo Ql (U) NegativeNormalNEGGuernsey Memorial HospitalComment on above:Performed By: #### UA ####[facility] ([id number])[address] [place] [address] 60815QRSAO/HGBSMALLAbnormalNEGProMethodist Hospital AtascosaComment on above:Performed By: #### UA ####[facility] ([id number])[address] [place] [address] 61567Dnkco (U)YELLOWNormalYELLOW [facility] Cancer HospitalComment on above:Performed By: #### UA ####[facility] ([id number])[address] [place] [address] 58543Vxxwrvy Ql (U)100 mg/dLAbnormalNEGProMethodist Hospital AtascosaComment on above:Performed By: #### UA ####[facility] ([id number])[address] [place] [address] 42702Pycodbz Ql (U)NegativeNormalNEG [facility] Cancer HospitalComment on above:Performed By: #### UA ####[facility] ([id number])[address] [place] [address] 35005Zpvfesigb esterase Test strip Ql (U)SMALLAbnormalNEGProMethodist Hospital AtascosaComment on above:Performed By: #### UA ####[facility] ([id number])[address] [place] [address] 86208Semhamn Ql (U) NegativeNormalNEGProMethodist Hospital AtascosaComment on above:Performed By: #### UA ####[facility] ([id number])[address] [place] [address] 88413sF (U)6.0 [pH]Normal5.0-8.5PSt. Vincent Hospital Comment on above:Performed By: #### UA ####[facility] ([id number])[address] [place] [address] 42113Sgczueb Ql (U) TraceAbnormalNEGProMethodist Hospital AtascosaComment on above:Performed By: #### UA ####[facility] ([id number])[address] [place] [address] 58282X.B.CELLS4 /hpfNormal0-5PSt. Vincent HospitalComment on above:Performed By: #### UA ####[facility] ([id number])[address] [place] [address] 06685Yvtzisfi gravity (U) [Rel density]1.015 Normal1.003-1.035ProMethodist Hospital AtascosaComment on above:Performed By: #### UA ####[facility] ([id number])[address] [place] [address], [place] [address]SJLQDYBK EPITHELIUM4 /hpfNormal0-5PSt. Vincent HospitalComment on above:Performed By: #### UA ####[facility] ([id number])[address] [place] [address] 64538RJONPRVAWBISCA NormalCLEARPSt. Vincent HospitalComment on above:Performed By: #### UA ####[facility] ([id number])[address] [place] [address] 37544Pvmyjlromsqc Qn (U)0.2 {Joan'U}/dLNormal<1.1PSt. Vincent HospitalComment on above:Performed By: #### UA ####[facility] ([id number])[address] [place] [address] 78525P.B.CELLS11 /hpf High0-5PSt. Vincent HospitalComment on above:Performed By: #### UA ####[facility] ([id number])[address] [place] [address] 80087XB.doppler Lower extremity vein - bilateralon 21-96-9344Fwpll: Common femoral, femoral, popliteal and deep calf muscle veins are compressible without intraluminal content. Spontaneous, phasic common femoral, femoral and popliteal spectral Doppler signals.Compressible thigh superficial Great saphenous vein. Left: Common femoral, femoral, popliteal and deep calf muscle veins are compressible without intraluminal content. Spontaneous, phasic common femoral, femoral and popliteal spectral Doppler signals. Absent Great saphenous superficial vein in the thigh. General: In-patient, bedside examination. Conclusions: RIGHT: NO EVIDENCE of deep or superficial vein thrombosis of the lower extremity.LEFT:The great saphenous vein is not visualized or surgically absent in the thigh. NO EVIDENCE of deep or superficial vein thrombosis of the lower extremity. Recommendations: Any questions prior to finalization, please call the reading physician during normal business hours at the phone number beside their name.PM CARDIOVASCULARJessica Winter MD - 10/20/2023 Right: Common femoral, femoral, popliteal and deep calf muscle veins are compressible without intraluminal content. Spontaneous, phasic common femoral, femoral and popliteal spectral Doppler signals.Compressible thigh superficial Great saphenous vein. Left: Common femoral, femoral, popliteal and deep calf muscle veins are compressible without intraluminal content. Spontaneous, phasic common femoral, femoral and popliteal spectral Doppler signals. Absent Great saphenous superficial vein in the thigh. General: In-patient, bedside examination. Conclusions: RIGHT: NO EVIDENCE of deep or superficial vein thrombosis of the lower extremity.LEFT:The great saphenous vein is not visualized or surgically absent in the thigh. NO EVIDENCE of deep or superficial vein thrombosis of the lower extremity. Recommendations: Any questions prior to finalization, please call the reading physician during normal business hours at the phone number beside their name. [facility] Specialty HospitalRadiology Study observation (narrative)[facility] HospitalSecureWaters Select Specialty HospitalUS.doppler Lower extremity vein - bilateralOrdered By: Jessica Winter on 42-33-6305JetDyumojAdena Fayette [facility] Center Work Phone: [phone] CHEST 1 VWon 88-43-3212VT CHEST [address] Anne HospitalXR SPINE LUMBAR 2 OR 3 VWSon 37-33-1483YZ SPINE LUMBAR 2 OR 3 [facility] HospitalaPTT Coag (PPP) [Time]on 96-08-1100bDUH Coag (Bld) [Time]42 nPtfa94-59HswAyewpiParkwood HospitalComment on above:Performed By: #### 718-7, PLTCT, PINR, 32373-3 #### [facility] ([id number]) [address] [place], [place] [address]Lijvojnf identified Aer cx Nom (Body fld)on 10-12-2023 Microscopic observation Gram stain Nom (Unsp spec)WHITE BLOOD CELLS PRESENT [facility] Specialty HospitalMicroscopic observation Gram stain Nom (Unsp spec)NO ORGANISMS SEENOhioHealth Grant Medical CenterMicroscopic observation Gram stain Nom (Unsp spec)ON CONCENTRATED SMEARProOhioHealth Hardin Memorial Hospitalervice comment (Unsp spec) [Interp]NO GROWTH 5 DAYSProMoundview Memorial Hospital and Clinics System Bacteria identified Anaer cx Nom (Unsp spec)on 71-55-4511Mzmlhci comment (Unsp spec) [Interp]NO GROWTH 5 DAYSProUniversity Hospitals Health System SystemProUniversity Hospitals Health System SystemCBC AND AUTO DIFFon 39-99-9746POSSPABD BASOPHIL0.1 X10E9/LNormal0.0-0.2Pro[facility]ica Paynesville HospitalComment on above:Performed By: #### MARVA, , 2776-02, CMP, PINR ####[facility] ([id number])[address], [place] [address]UMUYUDNP NEUTROPHIL4.9 X10E9/LNormal1.5-6.6ProCommunity Memorial Hospital HospitalComment on above:Performed By: #### MARVA, , 2776-02, CMP, PINR ####[facility] ([id number])[address], [place] [address]Xuryecsfa/100 WBC (Bld)1.1 %NormalProCommunity Memorial Hospital HospitalComment on above:Performed By: #### MARVA, , 2776-02, CMP, PINR ####[facility] ([id number])[address], [address], [place] [address]Siwtslvykgc (Bld) [#/Vol]0.4 10*3/uLNormal0.0-0.4ProCommunity Memorial Hospital HospitalComment on above: Performed By: #### MARVA, , 2776-02, CMP, PINR ####[facility] ([id number])[address], [address], [place] [address]Wmxcbeasghu/100 WBC (Bld)5.6 %NormalProCommunity Memorial Hospital HospitalComment on above:Performed By: #### MARVA, , 2776-02, CMP, PINR ####[facility] ([id number])[address], [address], [place] [address]Vsdzmogmdkz distribution width (RBC) [Ratio]17.6 %High11.5-15.0ProMedica Paynesville HospitalComment on above: Performed By: #### MARVA, , 2776-02, CMP, PINR ####[facility] ([id number])[address], [place] [address]Pfknmjnmks (Bld) [Volume fraction]22.0 %Xua05-04VubNmypju Ward HospitalComment on above: Performed By: #### CBCRachel, , 2776-02, CMP, PINR ####[facility] ([id number])[address] [address] [place] [address]Oxayfzawdl (Bld) [Mass/Vol]7.7 g/dLLow13.0-17.0ProRegional Medical Centerca Paynesville HospitalComment on above: Performed By: #### MARVA, , 2776-02, CMP, PINR ####[facility] ([id number])[address] [address] [place] [address]Trwsievgytu (Bld) [#/Vol]1.2 10*3/uLNormal1.0-3.5ProMedica [facility]nesville HospitalComment on above: Performed By: #### MARVA, , 2776-02, CMP, PINR ####[facility] ([id number])[address] [address] [place] [address]Yqvcgkguzcm/100 WBC (Bld)16.7 %NormalProRegional Medical Centerca Paynesville HospitalComment on above:Performed By: #### CBCRachel, , 2776-02, CMP, PINR ####[facility] ([id number])[address] [address] [place] [address] 09[address]KDS (RBC) [Entitic mass] 33.5 lkXtvokx87-22SsmVokbfk Ward HospitalComment on above:Performed By: #### CBCRachel, , 2777-1, CMP, PINR ####[facility] ([id number])[address], [place] [address]KXWE (RBC) [Mass/Vol]35.2 g/fLZhujsb20-13FgpBqikah Ward HospitalComment on above:Performed By: #### CBCRachel, , 2776-02, CMP, PINR ####[facility] ([id number])[address], [place] [address]OXZ (RBC) [Entitic vol]95 rOHeytvp25-540YfrFssivx Paynesville HospitalComment on above:Performed By: #### CBCRachel, , 2776-02, CMP, PINR ####[facility] ([id number])[address], [address] [place] [address] 12[address]Xsbdpwdtp (Bld) [#/Vol]0.6 10*3/uLNormal 0-0.9ProMedica [facility] HospitalComment on above:Performed By: #### CBCRachel, , 2776-02, CMP, PINR ####[facility] ([id number])[address], [address], [place] [address]Lqnwftvdr/100 WBC (Bld)8.7 %NormalProMedica Paynesville HospitalComment on above:Performed By: #### CBCRachel, , 2776-02, CMP, PINR ####[facility] ([id number])[address], [place] [address]Zpnhwbllnoz/100 WBC (Bld)67.9 %NormalProMedica Ward HospitalComment on above:Performed By: #### CBCA, , 2776-02, CMP, PINR ####[facility] ([id number])[address], [place] [address]Fnsydhux mean volume (Bld) [Entitic vol]9.8 fLNormal7-12ProMedCherrington Hospital HospitalComment on above:Performed By: #### CBCRachel, , 2776-, CMP, PINR ####[facility] ([id number])[address], [address] [place] [address]Gfzxwjnya (Bld) [#/Vol]109 10*3/kSYuo387-839TegPhkqvv [facility] HospitalComment on above:Performed By: #### CBCRachel, , 2776-, CMP, PINR ####[facility] ([id number])[address], [address] [place] [address]OZX COUNT2.31 X10E12/LLow 4.10-5.70[facility] HospitalComment on above:Performed By: #### CBCRachel, , 2776-02, CMP, PINR ####[facility] ([id number])[address], [address] [place] [address] 107[address]BIB (Bld) [#/Vol]7.3 10*3/uLNormal4.0-11.0 [facility] HospitalComment on above:Performed By: #### CBCRachel, , 2776-02, CMP, PINR ####[facility] ([id number])[address], [address] [place] [address] 169[address]ZFF auto differentialon 47-01-0298Tlwiejyeu (Bld) [#/Vol]0.1 10*3/uLProMedica Health SystemBasophils/100 WBC (Bld)1.1 %ProMedica Health SystemEosinophils (Bld) [#/Vol]0.4 10*3/uLProMedica Health System Eosinophils/100 WBC (Bld)5.6 %ProMedica Health SystemErythrocyte distribution width (RBC) [Ratio]17.6 %High11.5 - 15.0 %ProMedica Health SystemHematocrit (Bld) [Volume fraction]22.0 %Low39 - 49 %ProMedica Health SystemHemoglobin (Bld) [Mass/Vol]7.7 g/dLLow13.0 - 17.0 g/dLOhioHealth Grant Medical CenterInterpretation and review of laboratory resultsAbnormalOhioHealth Grant Medical CenterLymphocytes (Bld) [#/Vol]1.2 10*3/uLOhioHealth Grant Medical CenterLymphocytes/100 WBC (Bld)16.7 % [facility] HospitalH (RBC) [Entitic mass]33.5 pg27 - 34 [facility] HospitalMCHC (RBC) [Mass/Vol]35.2 g/dL32 - 36 g/dLOhioHealth Grant Medical CenterMCV (RBC) [Entitic vol]95 fL80 - 100 [facility] CenterMonocytes (Bld) [#/Vol]0.6 10*3/uLOhioHealth Grant Medical CenterMonocytes/100 WBC (Bld)8.7 %[facility]Health Grant Medical CenterNeutrophils (Bld) [#/Vol]4.9 10*3/uLOhioHealth Grant Medical CenterNeutrophils/100 WBC (Bld)67.9 %[facility] Grant Medical CenterPlatelet mean volume (Bld) [Entitic vol] 9.8 fL7 - 12 [facility] Medical CenterPlatelets (Bld) [#/Vol]109 10*3/uLLow OhioHealth Grant Medical CenterRBC (Bld) [#/Vol]2.31 10*6/uLLowOhioHealth Grant Medical Center WBC corrected for nucl RBC Auto (Bld) [#/Vol]7.3PNew Lifecare Hospitals of PGH - Alle-KiskiCOMPREHENSIVE METABOLIC PANELon 88-01-9193Nevxfny [Mass/Vol]3.2 g/dLNormal3.2-5.3PMercy Health St. Anne HospitalComment on above:Performed By: #### CBCA, 44205-7, 2777-1, CMP, PINR ####[facility] ([id number])[address], [address] [place] [address]QPJ [Catalytic activity/Vol]73 U/AWuwpcp46-338ShgAsgnkaSt. Rita's HospitalComment on above: Performed By: #### CBCA, , 2776-02, CMP, PINR ####[facility] ([id number])[address], [place] [address]VOQ [Catalytic activity/Vol]9 U/LNormal0-40ProMedica Ward HospitalComment on above:Performed By: #### MARVA, , 2776-02, CMP, PINR ####[facility] ([id number])[address], [address], [place] [address]Lvrnd gap [Moles/Vol]10 mmol/LNormal5-15ProMedica Ward HospitalComment on above:Performed By: #### MARVA, , 2776-02, CMP, PINR ####[facility] ([id number])[address], [address] [address], [place] [address]UTE [Catalytic activity/Vol]16 U/LNormal0-41ProMedica Ward HospitalComment on above:Performed By: #### MARVA, , 2776-02, CMP, PINR ####[facility] ([id number])[address], [address], [place] [address]Nmvyhogph [Mass/Vol]1.1 mg/dLNormal0.3-1.2ProMedCherrington Hospital HospitalComment on above:Performed By: #### MARVA, , 2776-02, CMP, PINR ####[facility] ([id number])[address], [address], [place] [address]Apsigrs [Mass/Vol]8.9 mg/dL Normal8.5-10.5ProMedbaptist medical center east Ward HospitalComment on above:Performed By: #### MARVA, , 2776-02, CMP, PINR ####[facility] ([id number])[address], [address], [place] [address]Iknfeooo [Moles/Vol]98 mmol/TIuuiue67-944 [facility] Rita's HospitalComment on above:Performed By: #### MARVA, , 2776-02, EBONY, PINR ####[facility] ([id number])[address], [address], [place] [address]RT4 [Moles/Vol]34 mmol/YAjou19-31WmyKdbqlw [place] HospitalComment on above:Performed By: #### MARVA, , 2776-02, EBONY, PINR ####[facility] ([id number])[address], [address], [place] [address]Didsjdeuhw [Mass/Vol]1.72 mg/dLHigh0.60-1.30[facility] Comment on above:Result Comment: METHOD TRACEABLE TO IDMS STANDARDPerformed By: #### MARVA, , 2776-02, EBONY, PINR ####[facility] ([id number])[address] [address], [place] [address]BTU/1.73 sq M.predicted among non-blacks MDRD (S/P/Bld) [Vol rate/Area]41 mL/min/{1.73_m2}Low>59 [facility] Rita's HospitalComment on above:Result Comment: Reported eGFR is based on theCKD-EPI 2020 equation that doesnot use a race coefficient.Performed By: #### MARVA, , 2776-02, EBONY, PINR ####[facility] ([id number])[address], [address], [place] [address]Jjlwydv [Mass/Vol]92 mg/dL Rjrkte42-82PwmIjrcpcAkron Children'S HospitalComment on above:Performed By: #### MARVA, , 2776-02, EBONY, PINR ####[facility] ([id number])[address], [address], [place] [address]Fqjgywivj [Moles/Vol]3.2 mmol/LLow3.5-5.0 [facility] Paynesville HospitalComment on above:Performed By: #### MARVA, , 2776-02, CMP, PINR ####[facility] ([id number])[address], [address] [place] [address]Wcfcror [Mass/Vol]6.2 g/dLNormal6.0-8.0[facility] HospitalComment on above:Performed By: #### MARVA, , 2776-02, CMP, PINR ####[facility] ([id number])[address], [address] [place] [address]Rdqoju [Moles/Vol]142 mmol/XEupetx757-880HmrKbtdih [place] HospitalComment on above:Performed By: #### MARVA, , 2776-02, CMP, PINR ####[facility] ([id number])[address], [address] [place] [address]Vqqn nitrogen [Mass/Vol]22 mg/dLNormal5-27Pro[facility] HospitalComment on above:Performed By: #### MARVA, , 2776-02, CMP, PINR ####[facility] ([id number])[address] [address]Zvrtkfk.ionized (Bld) [Mass/Vol]on 65-65-0167DwiXebcqr Health SystemIONIZED CALCIUM4.7 mg/dLNormal 4.5-5.3PPeoples Hospital HospitalComment on above:Performed By: #### 53574-7 ####[facility] ([id number])[address] [address]Cldblwccpsojs metabolic panelon 83-27-8519Bobubtz [Mass/Vol]3.2 g/dL3.2 - 5.3 g/dLProUniversity Hospitals Health System SystemALP [Catalytic activity/Vol]73 U/L39 - 130 U/L [facility] SystemALT No additional P-5'-P [Catalytic activity/Vol]9 U/L0 - 40 U/LProMedica Health SystemAnion gap [Moles/Vol]10 mmol/L5 - 15 mmol/L [facility] SystemAST [Catalytic activity/Vol]16 U/L0 - 41 U/LProMedbaptist medical center east Health SystemBilirubin [Mass/Vol]1.1 mg/dL0.3 - 1.2 mg/dLProUniversity Hospitals Health System System Calcium [Mass/Vol]8.9 mg/dL8.5 - 10.5 mg/dLProUniversity Hospitals Health System SystemChloride [Moles/Vol]98 mmol/L98 - 109 mmol/LProMedica Health SystemCO2 [Moles/Vol]34 mmol/LHigh22 - 32 mmol/[facility] SystemCreatinine [Mass/Vol]1.72 mg/dL High0.60 - 1.30 mg/dLSelect [facility] SystemeGFR (CKD-EPI)non-race Low- PINFProMedbaptist medical center east Health SystemGlucose [Mass/Vol]92 mg/dL65 - 99 mg/dLSelect [facility] SystemPotassium [Moles/Vol]3.2 mmol/LLow3.5 - 5.0 mmol/LProMedica Health SystemProtein [Mass/Vol]6.2 g/dL6.0 - 8.0 g/dLSelect [facility] Health SystemSodium [Moles/Vol]142 mmol/L134 - 146 mmol/[facility] SystemUrea nitrogen [Mass/Vol]22 mg/dL5 - 27 mg/dLSelect [facility] SystemCytologyon 86-73-3203MGQUDY [facility] SystemIonized calciumon 47-25-4964Fuobrbj.ionized (Bld) [Mass/Vol]4.7 mg/dL4.5 - 5.3 mg/dLOhioHealth Grant Medical CenterMAGNESIUMon 10-12-2023 Magnesium [Mass/Vol]1.5 mg/dLLow1.8-2.6St. Rita's HospitalComment on above:Performed By: #### CBCA, 91178-3, 2777-1, CMP, PINR ####[facility] ([id number])[address] [facility] [address] [place] [address]Yjmgpglrfer 82-36-3027Ulacjpwis [Mass/Vol]1.5 mg/dLLow1.8 - 2.6 mg/dLOhioHealth Grant Medical Center Natriuretic peptide B [Mass/Vol]on 87-56-7282Gelvddksabonov and review of laboratory resultsAbnormalProAdams County Regional Medical CenterNatriuretic peptide B (Bld) [Mass/Vol]322 pg/mLHighNINF - 100.0 pg/mLProAdams County Regional Medical CenterProUniversity Hospitals Health System SystemNatriuretic peptide B (Bld) [Mass/Vol]322 pg/mLHigh<100.0ProAkron Children'S HospitalComment on above:Performed By: #### 39377-3 ####[facility] ([id number])[address], [address] [place] [address]Ta Panel Informationon 68-92-5465XlbMawmxt Health SystemInterpretation and review of laboratory resultsAbnormalProAdams County Regional Medical CenterProUniversity Hospitals Health System System PHOSPHORUSon 59-33-2721Oppsumuzs [Mass/Vol]3.6 mg/dLNormal2.4-4.9ProAkron Children'S HospitalComment on above:Performed By: #### 2777-1, 50258-9, 2823-3 ####[facility] ([id number])[address], [address] [place] [address]Rssapaanb [Mass/Vol]2.3 mg/dLLow2.4-4.9ProAkron Children'S HospitalComment on above:Performed By: #### CBCA, 56428-2, 2777-1, CMP, PINR ####[facility] ([id number])[address], [address] [place] [address]GUHZFAICAxt 58-84-4343Flesxdiwt [Moles/Vol]3.7 mmol/LNormal3.5-5.0[facility] Comment on above:Performed By: #### 2777-1, 67735-9, 2823-3 ####[facility] ([id number])[address], [address], [place] [address]XZOULXQ AND INRon 96-07-2529THY Coag (PPP) [Relative time]1.1 {INR}Normal0.8-1.1PMercy Health St. Anne HospitalComment on above:Performed By: #### MARVA, 90350-7, 2777-1, CMP, PINR ####[facility] ([id number])[address], [address], [place] [address]NV Coag (PPP) [Time]13.3 sHigh9.8-13.2PMercy Health St. Anne HospitalComment on above:Performed By: #### MARVA, 07074-9, 2777-1, CMP, PINR ####[facility] ([id number])[address], [address] [place] [address]Zfzuwmqwlfvy 18-80-8732Sxeaowjck [Mass/Vol]3.6 mg/dL2.4 - 4.9 mg/dL [facility] Grant Medical CenterPhosphate [Mass/Vol]2.3 mg/dLLow2.4 - 4.9 mg/dLOhioHealth Grant Medical CenterPotassiumon 96-41-2044Sfdhrnxsk [Moles/Vol]3.7 mmol/L3.5 - 5.0 mmol/LProMedOhioHealth Grant Medical CenterProcalcitoninon 51-29-9490Gqvqymtzglqbt [place] [Mass/Vol]0.18 ng/mLHighNINF - 0.05 ng/mLOhioHealth Grant Medical CenterProcalcitonin IA [Mass/Vol]on 02-23-2307Mqytvxwgiczfkt and review of laboratory resultsAbnormal [facility] State HospitalPROCALCITONIN0.18 ng/mLHigh<0.05 [facility] HospitalCompontiac general hospital on above:Result Comment: NOTE<0.50 ng/mL - Low risk of severe sepsis and/or septic shock.<2.00 ng/mL -Recommend retesting within 6-24 hours.>2.00 ng/mL - High risk of sepsis and/or septic shock. Performed By: #### 2777-1, 46246-4, 2823-3 ####[facility] ([id number])[address] [facility], [address] [place] [address]Ypgcmsc & INRon 10-12-2023 INR Coag (PPP) [Relative time]1.1 {INR}[facility] Medical CenterInterpretation and review of laboratory resultsAbnoFirstHealth Moore Regional Hospital - RichmondPT Coag (PPP) [Time] 13.3 [facility] Medical Centererum Immunofixationon 15-86-8454YvA [Mass/Vol]329 mg/dL68 - 378 mg/dLOhioHealth Grant Medical CenterIgG [Mass/Vol]915 mg/dL635 - 1741 mg/dLOhioHealth Grant Medical CenterIgM [Mass/Vol]mg/dLLow 45 - 281 mg/dLOhioHealth Grant Medical CenterInterpretation and review of laboratory resultsAbDannemora State Hospital for the Criminally InsanePathologist interpretation (Bld) [Interp] SEE SEPARATE REPORTTorrance State HospitalABO Rh Repeaton 57-93-6122HHLGSrqKmwkfhManhattan Eye, Ear and Throat HospitalRh Nom (Bld)PositiveTorrance State HospitalBacteria identified Cx Nom (U)on 10-11-2023 Interpretation and review of laboratory resultsAbDannemora State Hospital for the Criminally Insane Service comment (Unsp spec) [Interp]10,000 to 50,000 ORGANISMS/mL DOROTHEA ALBICANSAbnoKensington HospitalCBC AND AUTO DIFF on 64-94-9134FLFVAOKD BASOPHIL0.0 X10E9/LNormal0.0-0.2PMercy Health St. Anne Hospital Comment on above:Performed By: #### CBCA, 27231-9, PINR, 37787-9, 2777-1, CMP ####[facility] ([id number])[address] [facility], [address] [place] [address]UFNFNNKB NEUTROPHIL5.1 X10E9/LNormal1.5-6.6[facility] Comment on above:Performed By: #### CBCRachel, 78425-3, PINR, 26784-5, 2776-, CMP ####[facility] ([id number])[address], [address] [place] [address]Gfyrusyuq/100 WBC (Bld)0.7 %NormalProRegional Medical Centerca Paynesville HospitalComment on above:Performed By: #### CBCA, 76415-6, PINR, 90461-9, 7-1, CMP ####[facility] ([id number])[address], [address] [place] [address] Eosinophils (Bld) [#/Vol]0.4 10*3/uLNormal0.0-0.4[facility] Comment on above:Performed By: #### CBCA, 95601-0, PINR, 23552-3, 2776-, CMP ####[facility] ([id number])[address], [address] [place] [address]Aqbuhysckgi/100 WBC (Bld)5.4 %NormalProRegional Medical Centerca Paynesville HospitalComment on above:Performed By: #### CBCA, , PINR, 74480-0, 2776-, CMP ####[facility] ([id number])[address], [address] [place] [address] Erythrocyte distribution width (RBC) [Ratio]16.4 %High11.5-15.0ProCommunity [facility] HospitalComment on above:Performed By: #### CBCA, 58759-7, PINR, 02836-8, 2776- , CMP ####[facility] ([id number])[address], [address] [place] [address]Hasbncimtt (Bld) [Volume fraction]19.1 %Gat80-42BywUlrhsg Paynesville HospitalComment on above:Performed By: #### CBCA, 49382-4, PINR, 72768-0, 2776-, CMP ####[facility] ([id number])[address], [address], [place] [address]Recticqyek (Bld) [Mass/Vol]6.6 g/dLCritically low13.0-17.0 [facility] HospitalComment on above:Performed By: #### CBCA, 60601-0, PINR, 42594-3, 2777-1, CMP ####[facility] ([id number])[address], [address], [place] [address]Zddihngfcxb (Bld) [#/Vol]0.8 10*3/uLLow 1.0-3.5Pro[facility]ica Paynesville HospitalComment on above:Performed By: #### CBCA, , PINR, 67006-2, 277-, CMP ####[facility] ([id number])[address], [address], [place] [address]Fgddbcufyxw/100 WBC (Bld)12.1 %Normal [facility] HospitalComment on above:Performed By: #### CBCA, , PINR, 68230-1, 277-, CMP ####[facility] ([id number])[address], [address], [place] [address]NGP (RBC) [Entitic mass]33.7 nnGthrxg63-10 [facility] HospitalComment on above:Performed By: #### CBCA, , PINR, 23785-6, 277-1, CMP ####[facility] ([id number])[address], [address], [place] [address]BWRZ (RBC) [Mass/Vol]34.5 g/kGBcsehq86-06 [facility] HospitalComment on above:Performed By: #### CBCA, 31843-1, PINR, 02041-0, 2777-1, CMP ####[facility] ([id number])[address], [address], [place] [address]FEO (RBC) [Entitic vol]98 pPFyxxii46-951 [facility] HospitalComment on above:Performed By: #### CBCA, 77381-3, PINR, 65418-5, 2777-1, CMP ####[facility] ([id number])[address], [address], [place] [address]Htnxkmplw (Bld) [#/Vol]0.6 10*3/uLNormal 0-0.9Pro[facility] HospitalComment on above:Performed By: #### CBCA, 52447-4, PINR, 27288-7, 2776-1, CMP ####[facility] ([id number])[address], [address], [place] [address]Gfdqikgyk/100 WBC (Bld)8.6 %NormalProMedica Ward HospitalComment on above:Performed By: #### CBCA, , PINR, 05541-5, 277-1, CMP ####[facility] ([id number])[address], [address], [place] [address]Qkuxdtucpxt/100 WBC (Bld)73.2 %NormalProMedica Ward HospitalComment on above:Performed By: #### CBCA, , PINR, 19456-3, 2776- , CMP ####[facility] ([id number])[address], [address], [place] [address]Ltnqibkq mean volume (Bld) [Entitic vol]10.2 fLNormal7-12 [facility] HospitalComment on above:Performed By: #### CBCA, 41770-8, PINR, 67317-5, 2777-1, CMP ####[facility] ([id number])[address], [address], [place] [address]Masdwhlal (Bld) [#/Vol]108 10*3/bLPhc254-996 [facility] HospitalComment on above:Performed By: #### CBCA, 59934-3, PINR, 73288-7, 2777-1, CMP ####[facility] ([id number])[address], [address] [place] [address]ZCU COUNT1.95 X10E12/LLow4.10-5.70ProAkron Children'S HospitalComment on above:Performed By: #### CBCA, , PINR, 64770-5, 2777-1, CMP ####[facility] ([id number])[address] [facility], [address] [place] [address]XRN (Bld) [#/Vol]6.9 10*3/uLNormal4.0-11.0[facility] HospitalComment on above:Performed By: #### CBCA, , PINR, 72855-1, 2777- 1, CMP ####[facility] ([id number])[address], [address] [place] [address]FZA auto differentialon 20-83-6601Jpkdaouuy (Bld) [#/Vol]0.0 10*3/uLSelect Medical Specialty Hospital [facility], Inc SystemBasophils/100 WBC (Bld)0.7 %[facility] SystemEosinophils (Bld) [#/Vol]0.4 10*3/uLSelect Medical Specialty [facility], [facility] SystemEosinophils/100 WBC (Bld)5.4 %[facility] HospitaledicLake City Hospital and Clinic SystemErythrocyte distribution width (RBC) [Ratio]16.4 %High11.5 - 15.0 %ProMMadelia Community Hospital SystemHematocrit (Bld) [Volume fraction]19.1 %Low39 - 49 %[facility] SystemHemoglobin (Bld) [Mass/Vol]6.6 g/dLCritically low13.0 - 17.0 g/dLOhioHealth Grant Medical CenterInterpretation and review of laboratory resultsAbnormalOhioHealth Grant Medical CenterLymphocytes (Bld) [#/Vol]0.8 10*3/uLLowOhioHealth Grant Medical CenterLymphocytes/100 WBC (Bld)12.1 % [facility] HospitalH (RBC) [Entitic mass]33.7 pg27 - 34 pgPAdena Fayette Medical CenterMCHC (RBC) [Mass/Vol]34.5 g/dL32 - 36 g/dLOhioHealth Grant Medical CenterMCV (RBC) [Entitic vol]98 fL80 - 100 [facility] CenterMonocytes (Bld) [#/Vol]0.6 10*3/uLOhioHealth Grant Medical CenterMonocytes/100 WBC (Bld)8.6 %[facility] Grant Medical CenterNeutrophils (Bld) [#/Vol]5.1 10*3/uLOhioHealth Grant Medical CenterNeutrophils/100 WBC (Bld)73.2 %[facility] Medical CenterPlatelet mean volume (Bld) [Entitic vol] 10.2 fL7 - 12 [facility] Medical CenterPlatelets (Bld) [#/Vol]108 10*3/uLLow [facility] Grant Medical CenterRBC (Bld) [#/Vol]1.95 10*6/uLLowOhioHealth Grant Medical Center WBC corrected for nucl RBC Auto (Bld) [#/Vol]6.9Tor[facility] State HospitalCOMPREHENSIVE METABOLIC PANELon 32-66-5857Acxncvn [Mass/Vol]3.2 g/dLNormal3.2-5.3PMercy Health St. Anne HospitalComment on above:Performed By: #### CBCA, 38941-4, PINR, 48626-9, 2777-1, CMP ####[facility] ([id number])[address] [facility], [address] [place] [address]OLZ [Catalytic activity/Vol]62 U/ESposie86-836XwxOebhupSt. Rita's HospitalComment on above: Performed By: #### CBCA, 13212-2, PINR, 27892-5, 2777-1, CMP ####[facility] ([id number])[address] [facility], [address], [place] [address]MBW [Catalytic activity/Vol]7 U/LNormal0-40[facility] HospitalComment on above:Performed By: #### MARVA, 59656-0, PINR, 23302-4, 2777-1, CMP ####[facility] ([id number])[address], [place] [address]Jtoeo gap [Moles/Vol]10 mmol/LNormal5-15[facility] HospitalComment on above:Performed By: #### MARVA, 63612-5, PINR, 71514-6, 277-1, CMP ####[facility] ([id number])[address], [address], [place] [address]KVE [Catalytic activity/Vol]14 U/LNormal0-41[facility] HospitalComment on above:Performed By: #### MARVA, , PINR, 54721-4, 277-, CMP ####[facility] ([id number])[address], [address], [place] [address]Dofnrxolf [Mass/Vol]0.8 mg/dLNormal0.3-1.2ProMedbaptist medical center east Ward HospitalComment on above:Performed By: #### MARVA, , PINR, 55964-5, 277-, CMP ####[facility] ([id number])[address], [address], [place] [address]Mmxrvcp [Mass/Vol]8.9 mg/dL Normal8.5-10.5Pro[facility] HospitalComment on above:Performed By: #### MARVA, 56029-6, PINR, 70633-1, 277-1, CMP ####[facility] ([id number])[address], [address], [place] [address]Deagdesz [Moles/Vol]101 mmol/L Bagifx65-282HvjFeknst Ward HospitalComment on above:Performed By: #### MARVA, 21906-3, PINR, 87623-3, 2777-1, CMP ####[facility] ([id number])[address], [address], [place] [address]NA0 [Moles/Vol]32 mmol/LNormal 22-32Pro[facility] Paynesville HospitalComment on above:Performed By: #### MARVA, , PINR, 46956-6, 277-1, CMP ####[facility] ([id number])[address] [address], [place] [address]Fvopawtfvd [Mass/Vol]2.15 mg/dLHigh0.60-1.30 [facility] County Health CenterComment on above:Result Comment: METHOD TRACEABLE TO IDMS STANDARDPerformed By: #### MARVA, , PINR, 99299-3, 277-1, CMP ####[facility] ([id number])[address] [address], [place] [address]NVS/1.73 sq M.predicted among non-blacks MDRD (S/P/Bld) [Vol rate/Area]31 mL/min/{1.73_m2}Low>59ProAkron Children'S HospitalComment on above:Result Comment: Reported eGFR is based on theCKD-EPI 2020 equation that doesnot use a race coefficient.Performed By: #### MARVA, , PINR, 66218-0, 277-1, CMP ####[facility] ([id number])[address] [address], [place] [address]Pjgrctx [Mass/Vol]92 mg/wURcfypn55-63JdhNhugyj [place] HospitalComment on above:Performed By: #### MARVA, 45942-8, PINR, 44165-3, 2777-1, CMP ####[facility] ([id number])[address] [address] [address] Potassium [Moles/Vol]3.7 mmol/LNormal3.5-5.0ProCommunity [facility] HospitalComment on above:Performed By: #### MARVA, 91792-2, PINR, 50101-9, 2777-1, CMP ####[facility] ([id number])[address], [address] [place] [address] Protein [Mass/Vol]5.9 g/dLLow6.0-8.0Pro[facility] HospitalComment on above: Performed By: #### MARVA, , PINR, 45835-7, 2777-1, CMP ####[facility] ([id number])[address], [address] [place] [address]Snwned [Moles/Vol]143 mmol/OJsaugr923-595HndUhozoo [place] HospitalComment on above: Performed By: #### MARVA, , PINR, 48867-8, 2777-1, CMP ####[facility] ([id number])[address], [address] [place] [address]Tyso nitrogen [Mass/Vol]29 mg/dLHigh5-27Pro[facility] HospitalComment on above:Performed By: #### MARVA, , PINR, 98451-6, 2777-1, CMP ####[facility] ([id number])[address], [address] [place] [address]Uycwtja.ionized (Bld) [Mass/Vol]on 29-20-0601SgsWveefvAdena Fayette Medical CenterIONIZED CALCIUM4.8 mg/dLNormal 4.5-5.3PPeoples Hospital HospitalComment on above:Performed By: #### 76063-3 ####[facility] ([id number])[address], [address] [place] [address]Cclhhaku Pathology Reviewon 73-51-5880EZZIJNZmjHnqrcc Health System Comprehensive metabolic panelon 03-01-2572Jplwfwf [Mass/Vol]3.2 g/dL3.2 - 5.3 g/dLOhioHealth Grant Medical CenterALP [Catalytic activity/Vol]62 U/L39 - 130 U/L [facility] CenterALT No additional P-5'-P [Catalytic activity/Vol]7 U/L0 - 40 U/LPrParkwood Hospital SystemAnion gap [Moles/Vol]10 mmol/L5 - 15 mmol/L [facility] SystemAST [Catalytic activity/Vol]14 U/L0 - 41 U/[facility] SystemBilirubin [Mass/Vol]0.8 mg/dL0.3 - 1.2 mg/dLOhioHealth [facility] Center Calcium [Mass/Vol]8.9 mg/dL8.5 - 10.5 mg/dLOhioHealth Grant Medical CenterChloride [Moles/Vol]101 mmol/L98 - 109 mmol/[facility] SystemCO2 [Moles/Vol]32 mmol/L22 - 32 mmol/[facility] SystemCreatinine [Mass/Vol]2.15 mg/dLHigh 0.60 - 1.30 mg/dLOhioHealth Grant Medical CentereGFR (CKD-EPI)non-race naefucfnk12Ohh- PINCarondelet HealthGlucose [Mass/Vol]92 mg/dL65 - 99 mg/dLOhioHealth Grant Medical CenterInterpretation and review of laboratory resultsAbnormalOhioHealth Grant Medical CenterPotassium [Moles/Vol]3.7 mmol/L3.5 - 5.0 mmol/LProMedica University [facility]als [facility] SystemProtein [Mass/Vol]5.9 g/dLLow6.0 - 8.0 g/dLNovant Health New Hanover Regional Medical Centerodium [Moles/Vol]143 mmol/L134 - 146 mmol/[facility] SystemUrea nitrogen [Mass/Vol]29 mg/dLHigh5 - 27 mg/dLOhioHealth Grant Medical CenterCrossmatch RBC:Number of Units: 1on 18-71-3170SI Type [id number] Grant Medical CenterBlood component [id number] Grant Medical CenterCrossmatchCompatibleOhioHealth Grant Medical CenterExpiration [id number] Health SystemStatus of unit TRANSFUSEDOhioHealth Grant Medical CenterUnit ABOAProMedBarnesville Hospital SystemUnit number [id number] Health SystemUnit RHPositiveLehigh Valley Hospital - PoconoFECAL OCCULT BLOODon 10-11-2023 Hemoglobin.gastrointestinal Ql (Stl)FECAL OCCULT BLOOD Positive (qualifier value) POSITIVE = ABNORMALNormalSt. Rita's HospitalComment on above:Performed By: #### 2335-8 ####[facility] ([id number])[address], [address] [place] [address] 97388SVS AND HCTon 99-55-2157Kxubeehxxc (Bld) [Volume fraction] 22.4 %Qym83-97UlxXaznctOhioHealth Grant Medical CenterComment on above:Performed By: #### HH ####[facility] ([id number])[address], [address] [place] [address]28Irreqyjqji (Bld) [Mass/Vol]7.7 g/dLLow13.0-17.0[facility] Comment on above:Performed By: #### HH ####[facility] ([id number])[address], [address] [place] [address]5831Fcrnrzqrov and hematocrit, bloodon 15-65-7041Fzdzfyosijqrhn and review of laboratory resultsAbnoal Torrance State HospitalHemoglobin.gastrointestinal Ql (Stl)on 16-66-7181Scnmifsktpmcvx and review of laboratory resultsAbnormal [facility] SystemIonized calciumon 10-11-2023 Calcium.ionized (Bld) [Mass/Vol]4.8 mg/dL4.5 - 5.3 mg/dLOhioHealth Grant Medical Center Laboratory - Chemistry and Chemistry - challengeon 96-67-9809Dmtxnqiem [Moles/Vol]3.8 mmol/LNormal3.5-5.0Ohio[facility] Grant Medical CenterComment on above: Performed By: #### 2823-3 ####[facility] ([id number])[address], [address] [place] [address] [id number] 58-93-2491Psmtpheuv [Mass/Vol] 2.1 mg/dLNormal1.8-2.6St. Rita's HospitalComment on above:Performed By: #### MARVA, 85466-5, PINR, 55908-6, 2777-1, CMP ####[facility] [facility] ([id number])[address], [address] [place] [address] 33915Vsytasgcwil 10-11-2023 Magnesium [Mass/Vol]2.1 mg/dL1.8 - 2.6 mg/dLProAdams County Regional Medical CenterNatriuretic peptide B [Mass/Vol]on 25-05-8294Mqvtqddmrobljd and review of laboratory results AbnormalProAdams County Regional Medical CenterNatriuretic peptide B (Bld) [Mass/Vol]570 pg/mL HighNINF - 100.0 pg/mLProAdams County Regional Medical CenterProUniversity Hospitals Health System SystemNatriuretic peptide B (Bld) [Mass/Vol]570 pg/mLHigh<100.0ProAkron Children'S HospitalComment on above:Performed By: #### 35770-7 ####[facility] ([id number])[address], [address] [place] [address] 77816Yj Panel Informationon 04-38-2168MjjSuqijaAdena Fayette Medical CenterOccult blood x 1, stoolon 10-11-2023 Hemoglobin.gastrointestinal Ql (Stl)PositiveAbnormalNegative^NegativeOhioHealth Grant Medical CenterPHOSPHORUSon 51-50-4972Sjlqyanbd [Mass/Vol]2.5 mg/dLNormal2.4-4.9 ProMUniversity Hospitals Conneaut Medical CenterComment on above:Performed By: #### MARVA, 95358-6, PINR, 26027-1, 2777-1, CMP ####[facility] ([id number])[address], [address] [place] [address] 38706SUUYNFV AND INRon 97-24-0770VSS Coag (PPP) [Relative time]1.2 {INR}High0.8-1.1PMercy Health St. Anne HospitalComment on above: Performed By: #### MARVA, 96768-5, PINR, 25908-5, 2777-1, CMP ####[facility] ([id number])[address], [address] [place] [address] 86273YK Coag (PPP) [Time]13.6 sHig9.8-13.2PMercy Health St. Anne HospitalComment on above:Performed By: #### CBCA, 02666-6, PINR, 49436-4, 2777-1, CMP ####[facility] ([id number])[address], [address], [place] [address]Jwxkmwwqkwnd 10-11-2023 Phosphate [Mass/Vol]2.5 mg/dL2.4 - 4.9 mg/dLOhioHealth Grant Medical CenterPotassium [Moles/Vol]on 82-24-4510XvqJsjwtxAdena Fayette Medical CenterProcalcitoninon 10-11-2023 Procalcitonin IA [Mass/Vol]0.25 ng/mLHighNINF - 0.05 ng/mLOhioHealth Grant Medical CenterProcalcitonin IA [Mass/Vol]on 74-13-0704Oezfatefowvexp and review of laboratory resultsAbnoKensington Hospital PROCALCITONIN0.25 ng/mLHigh<0.05St. Rita's HospitalComment on above:Result Comment: NOTE<0.50 ng/mL - Low risk of severe sepsis and/or septic shock.<2.00 ng/mL -Recommend retesting within 6-24 hours.>2.00 ng/mL - High risk of sepsis and/or septic shock.Performed By: #### CBCA, 89155-5, PINR, 46318-7, 2777-1, CMP ####[facility] ([id number])[address], [address] [place] [address] 49761Bddsmaq & INRon 91-37-9793BYZ Coag (PPP) [Relative time]1.2 {INR}High [facility] Medical CenterInterpretation and review of laboratory resultsAbnormal [facility] Medical CenterPT Coag (PPP) [Time]13.6 [facility] System– OakridgeType and screen(includes indirect delfin)on 79-90-1265RIQ City HospitalRh Nom (Bld)PositiveTorrance State HospitalXR CHEST 1 VWon 22-90-9022VT CHEST 1 [facility] SystemXR Chest Single viewon 16-91-8469RSQIVTTBVLFjbPelvkt Health System Radiology Study observation (narrative)[facility] Medical CenterXR Chest Single viewOrdered By: Dagoberto Wiley on 51-35-8724EszRphmyrAdena Fayette Medical Center Work Phone: Bacteria identified Aer cx Nom (Bld)on 10-10-2023 Service comment (Unsp spec) [Interp]NO GROWTH 5 DAYSLehigh Valley Hospital - PoconoBlood gas, venouson 41-14-5837Nobnwfji patency Wrist artery --pre arterial punctureOhioHealth Grant Medical CenterBase excess Calc (Bld) [Moles/Vol]7.0 mmol/LHMary Washington HospitalCO2 (BldV) [Partial pressure] 56.5 mm[Hg]HighOhioHealth Grant Medical CenterHCO3 (Bld) [Moles/Vol]32.7 mmol/LHigh [facility] Medical CenterInterpretation and review of laboratory resultsAbnormal [facility] Medical CenterOxygen (BldV) [Partial pressure]41 mm[Hg][facility] Grant Medical CenterOxygen therapy source and amount [CARE]NCOhioHealth Grant Medical Center Oxygen/Inspired gas setting [Volume Fraction] Wzkrwajsmw38 %[facility] Medical CenterpH (BldV)7.370 [pH]7.320 - 7.420Nov[facility] Health [facility] Medical CenteraO2% Calculated from oxygen partial pressure (BldV) [Mass fraction]73.0 %Low80.0 - PINF % [facility] Medical Centerpecimen site NarrativeN/[facility] SystemSpecimen type Nom (Spec)VENOUSTorrance State HospitalCBC AND AUTO DIFFon 82-57-5185ERBDDLSW BASOPHIL0.1 X10E9/LNormal0.0-0.2PMercy Health St. Anne HospitalComment on above:Performed By: #### CBCA, 4217-1, , 4, FEPR, CMP, PINR ####[facility] ([id number])[address], [address] [place] [address] 71429ILGWCHTI NEUTROPHIL5.2 X10E9/LNormal1.5-6.6ProCommunity [facility] Hospital HospitalComment on above:Performed By: #### CBCRachel, 2776-, , 2275-4, FEPR, CMP, PINR ####[facility] ([id number])[address], [address] [place] [address] 07554Nzjzmgmdm/100 WBC (Bld)0.8 %NormalProCommunity Memorial Hospital Hospital Comment on above:Performed By: #### CBCRachel, 2776-02, , 2275-05, FEPR, CMP, PINR ####[facility] ([id number])[address], [address] [place] [address] 37057Drammwzojvq (Bld) [#/Vol]0.3 10*3/uLNormal0.0-0.4ProCommunity Memorial Hospital HospitalComment on above:Performed By: #### CBCRachel, 2776-02, , , FEPR, CMP, PINR ####[facility] ([id number])[address], [address] [place] [address] 72135Afutcjskari/100 WBC (Bld)4.5 %NormalProCommunity Memorial Hospital HospitalComment on above:Performed By: #### CBCRachel, 2776-, , 2275-4, FEPR, CMP, PINR ####[facility] ([id number])[address], [address] [place] [address] 79400Eoiubuanybk distribution width (RBC) [Ratio]16.5 %High 11.5-15.0ProCommunity Memorial Hospital HospitalComment on above:Performed By: #### CBCRachel, 2776-, , 2276-4, FEPR, CMP, PINR ####[facility] ( [id number])[address], [address], [place] [address]Tnxjxfeitx (Bld) [Volume fraction]21.0 %Fvj01-48CfmTkifwt [place] HospitalComment on above:Performed By: #### CBCRachel, 2776-, , 2275-4, FEPR, CMP, PINR ####[facility] ([id number])[address], [address] [place] [address] 48793Mbqdbszpmq (Bld) [Mass/Vol]6.8 g/dLCritically low13.0-17.0[facility] HospitalComment on above:Performed By: #### MARVA, 2776-02, , 2275-, FEPR, CMP, PINR ####[facility] ([id number])[address], [address] [place] [address] 62964Lhtnqgxuysh (Bld) [#/Vol]0.7 10*3/uLLow1.0-3.5PMercy Health St. Anne Hospital Comment on above:Performed By: #### MARVA, 2776-02, , 2275-05, FEPR, CMP, PINR ####[facility] ([id number])[address] [address] [place] [address] 75126Lpdpnslajjr/100 WBC (Bld)10.6 %NormalProCommunity Memorial Hospital HospitalComment on above:Performed By: #### CBCRachel, 2776-, , 2275-4, FEPR, CMP, PINR ####[facility] ([id number])[address], [address] [place] [address] 21160YJD (RBC) [Entitic mass]31.9 gvKkcqrh77-45RyrYdxybt [place] HospitalComment on above:Performed By: #### CBCRachel, 2776-, , 2275-4, FEPR, CMP, PINR ####[facility] ([id number])[address], [address] [place] [address] 19802UONW (RBC) [Mass/Vol]32.2 g/jDCvltjp34-67HpkPaofci Ward HospitalComment on above:Performed By: #### CBCA, 2776-, , 2275-4, FEPR, CMP, PINR ####[facility] ([id number])[address], [address] [place] [address] 57660DSE (RBC) [Entitic vol]99 vOIrjnvb16-115BabMgtjbr Ward HospitalComment on above:Performed By: #### CBCA, 2776-, , 2275-4, FEPR, CMP, PINR ####[facility] ([id number])[address], [address] [place] [address] 33572Rekstanee (Bld) [#/Vol]0.7 10*3/uLNormal0-0.9ProMedica Ward HospitalComment on above:Performed By: #### CBCA, 2776-, , 2275-4, FEPR, CMP, PINR ####[facility] ([id number])[address], [address] [place] [address] 28100Vwccnlkfp/100 WBC (Bld)9.7 %NormalProMedica Ward HospitalComment on above:Performed By: #### CBCA, 2776-, , 2275-4, FEPR, CMP, PINR ####[facility] ([id number])[address], [address] [place] [address] 91941Djdoybanwmc/100 WBC (Bld)74.4 %NormalProMedica Ward HospitalComment on above:Performed By: #### CBCA, 2776-, , 2275-4, FEPR, CMP, PINR ####[facility] ([id number])[address], [address] [place] [address] 73495Amvjtufm mean volume (Bld) [Entitic vol]10.6 fLNormal7-12 ProMCleveland Clinic Euclid Hospital HospitalComment on above:Performed By: #### CBCRachel, 7-1, 51196-3, 6-4, FEPR, CMP, PINR ####[facility] ( [id number])[address], [address] [place] [address] 85701Fbdyfbpyj (Bld) [#/Vol]113 10*3/jDAvd611-679QkkHsveqa [place] HospitalComment on above:Performed By: #### CBCRachel, 2776-, 41580-4, 2275-4, FEPR, CMP, PINR ####[facility] ([id number])[address], [address] [place] [address] 71105UEE COUNT2.12 X10E12/LLow 4.10-5.70ProCommunity [facility] Hospital HospitalComment on above:Performed By: #### CBCRachel, 2776-, 94644-3, 2275-4, FEPR, CMP, PINR ####[facility] ( [id number])[address], [address] [place] [address] 76380ASX (Bld) [#/Vol]6.9 10*3/uL Normal4.0-11.0ProCommunity Memorial Hospital HospitalComment on above:Performed By: #### CBCA, 7-, 15755-1, 2275-4, FEPR, CMP, PINR ####[facility] ( [id number])[address], [address] [place] [address] 85913KNR auto differentialon 07-30-4353Svnkpkynx (Bld) [#/Vol]0.1 10*3/uLProMedica [facility] SystemBasophils/100 WBC (Bld)0.8 %ProMedicLake City Hospital and Clinic SystemEosinophils (Bld) [#/Vol]0.3 10*3/uL [facility] CenterEosinophils/100 WBC (Bld)4.5 %[facility] Erythrocyte distribution width (RBC) [Ratio]16.5 %High11.5 - 15.0 %[facility] Medical CenterHematocrit (Bld) [Volume fraction]21.0 %Low39 - 49 %[facility] Medical CenterHemoglobin (Bld) [Mass/Vol]6.8 g/dLCritically low13.0 - 17.0 g/dL [facility] CenterInterpretation and review of laboratory resultsAbnormal [facility] Medical CenterLymphocytes (Bld) [#/Vol]0.7 10*3/uLOhioHealth Nelsonville Health CenterLymphocytes/100 WBC (Bld)10.6 %[facility] HospitalH (RBC) [Entitic mass]31.9 pg27 - 34 [facility] HospitalMCHC (RBC) [Mass/Vol]32.2 g/dL32 - 36 g/dLOhioHealth Grant Medical CenterMCV (RBC) [Entitic vol]99 fL80 - 100 [facility] CenterMonocytes (Bld) [#/Vol]0.7 10*3/[facility] Monocytes/100 WBC (Bld)9.7 %[facility] Medical CenterNeutrophils (Bld) [#/Vol]5.2 10*3/uLOhioHealth Grant Medical CenterNeutrophils/100 WBC (Bld)74.4 %[facility] Medical CenterPlatelet mean volume (Bld) [Entitic vol]10.6 fL7 - 12 [facility] CenterPlatelets (Bld) [#/Vol]113 10*3/uLOhioHealth Nelsonville Health CenterRBC (Bld) [#/Vol]2.12 10*6/[facility] HospitalWBC corrected for nucl RBC Auto (Bld) [#/Vol]6.9Torrance State HospitalCOMPREHENSIVE METABOLIC PANELon 23-03-9427Nouwgia [Mass/Vol]3.1 g/dLLow3.2-5.3PMercy Health St. Anne HospitalComment on above:Performed By: #### CBCA, 2777-, 55295-8, 6-4, FEPR, CMP, PINR ####[facility] ([id number])[address], [address], [place] [address]FBU [Catalytic activity/Vol]58 U/YLbalon02-208BylWjnnds Ward HospitalComment on above:Performed By: #### MARVA, 2776-, 16869-3, 6- 4, FEPR, CMP, PINR ####[facility] ([id number])[address], [address], [place] [address]PVC [Catalytic activity/Vol]7 U/LNormal0-40ProMedica Ward HospitalComment on above:Performed By: #### MARVA, 2776-, 94929-3, 6- 4, FEPR, CMP, PINR ####[facility] ([id number])[address], [address], [place] [address]Lrxzy gap [Moles/Vol]8 mmol/LNormal5-15Pro[facility] HospitalComment on above:Performed By: #### MARVA, 2776-, , 2275-4, FEPR, CMP, PINR ####[facility] ([id number])[address], [address], [place] [address]AMU [Catalytic activity/Vol]11 U/LNormal0-41Pro[facility] HospitalComment on above:Performed By: #### MARVA, 2776-, 47120-4, 6- 4, FEPR, CMP, PINR ####[facility] ([id number])[address], [address], [place] [address]Lewpyxwxp [Mass/Vol]1.0 mg/dLNormal0.3-1.2ProMedica Ward HospitalComment on above:Performed By: #### MARVA, 2776-, 78279-2, 2276- 4, FEPR, CMP, PINR ####[facility] ([id number])[address], [place] [address]Wloestx [Mass/Vol]9.2 mg/dLNormal8.5-10.5PPeoples Hospital HospitalComment on above:Performed By: #### MARVA, 7-1, 79992-2, 6- 4, FEPR, CMP, PINR ####[facility] ([id number])[address], [place] [address]Forpniex [Moles/Vol]101 mmol/TCzibqq73-193HsaFvtfli [place] HospitalComment on above:Performed By: #### AMRVA, 7-1, 92414-2, 2275- 4, FEPR, CMP, PINR ####[facility] ([id number])[address], [place] [address]IM4 [Moles/Vol]35 mmol/QXxgo46-22AjhDzssme [place] HospitalComment on above:Performed By: #### MARVA, 7-1, 18333-5, 2275-4, FEPR, CMP, PINR ####[facility] ([id number])[address] [address], [place] [address]Icrlbksmaz [Mass/Vol]3.03 mg/dLHigh0.60-1.30Pro[facility] HospitalComment on above:Result Comment: METHOD TRACEABLE TO IDMS STANDARD Performed By: #### MARVA, 7-1, 83062-7, 2275-4, FEPR, CMP, PINR ####[facility] ([id number])[address] [address] [address] GFR/1.73 sq M.predicted among non-blacks MDRD (S/P/Bld) [Vol rate/Area]21 mL/min/{1.73_m2}Low>59ProCommunity [facility] HospitalComment on above:Result Comment: Reported eGFR is based on theCKD-EPI 2020 equation that doesnot use a race coefficient.Performed By: #### MARVA, 2776-, , 2275-4, FEPR, CMP, PINR ####[facility] ([id number])[address], [place] [address]Nuahvhm [Mass/Vol]86 mg/hCUbdjyi44-11VedIkropr Ward HospitalComment on above:Performed By: #### MARVA, 2776-, , 4, FEPR, CMP, PINR ####[facility] ([id number])[address], [address], [place] [address]Sjucnzmkb [Moles/Vol]3.8 mmol/LNormal3.5-5.0ProRegional Medical Centerca [facility] Comment on above:Performed By: #### MARVA, 2776-, , 2275-05, FEPR, CMP, PINR ####[facility] ([id number])[address], [address], [place] [address]Qzebspy [Mass/Vol]6.2 g/dLNormal6.0-8.0ProMedica Ward HospitalComment on above:Performed By: #### MARVA, 2776-, , 2275-05, FEPR, CMP, PINR ####[facility] ([id number])[address], [place] [address]Allysi [Moles/Vol]144 mmol/NVebwgs308-435JlrClfmkk Ward HospitalComment on above:Performed By: #### MARVA, 2776-, , 2275-, FEPR, CMP, PINR ####[facility] ([id number])[address], [address], [place] [address]Jqno nitrogen [Mass/Vol]35 mg/dLHigh5-27ProMedica Ward HospitalComment on above:Performed By: #### CBCA, 7-1, 57406-2, 2276-4, FEPR, CMP, PINR ####[facility] ([id number])[address] [place] [address], [address] [place] [address]Tnucdzat Pathologyon 90-02-5743Xamkkxyq PathologyNormal St. Rita's HospitalComment on above:Result Comment: [facility] [address] [place] [address] Clinical Pathology ReportPatient Name:BRIAN MANDEL:1950 (Age: 73)Gender:MTaken:4Reported:10/11/2023hysician(s):Mahesh Banerjee MD ([phone])Copy To: Rec. #:[id number]: #[id number] Pathologic DiagnosisNo definite monoclonal protein identified. Report Electronically Signed Outdf/10/11/2023sadie Sandoval MDInterpretation [place] [address], License number: [id number].Clinical DlsjihdS67.9, N17.9, I95.9.SERUM IEPSAMPLE NUMBER: [id number] LEVELS (mg/dL): IgG : 915 IgA : 329 IgM : <20Specimen(s) Received Serum IEPFee Codes(s):1; 12960-65Qbbwupgfmyixb metabolic panelon 26-80-0041Kgldhqi [Mass/Vol]3.1 g/dLLow3.2 - 5.3 g/dL [facility] SystemALP [Catalytic activity/Vol]58 U/L39 - 130 U/LProMedica Health SystemALT No additional P-5'-P [Catalytic activity/Vol]7 U/L0 - 40 U/L [facility] SystemAnion gap [Moles/Vol]8 mmol/L5 - 15 mmol/LProMedica Health SystemAST [Catalytic activity/Vol]11 U/L0 - 41 U/LProMedica Health System Bilirubin [Mass/Vol]1.0 mg/dL0.3 - 1.2 mg/dLProMedica Health SystemCalcium [Mass/Vol]9.2 mg/dL8.5 - 10.5 mg/dLProRmc Stringfellow Memorial Hospital Health SystemChloride [Moles/Vol] 101 mmol/L98 - 109 mmol/LProMedica Health SystemCO2 [Moles/Vol]35 mmol/LHigh22 - 32 mmol/LPrWest Springs Hospital Health SystemCreatinine [Mass/Vol]3.03 mg/dLHigh0.60 - 1.30 mg/dLSelect Medical Specialty [facility], Inc SystemeGFR (CKD-EPI)non-race uravwddtm50Wfc- PINFPFisher-Titus Medical Center SystemGlucose [Mass/Vol]86 mg/dL65 - 99 mg/dLSelect Medical Specialty Hospital [facility], Inc System Potassium [Moles/Vol]3.8 mmol/L3.5 - 5.0 mmol/LProMedbaptist medical center east Health SystemProtein [Mass/Vol]6.2 g/dL6.0 - 8.0 g/dLProRmc [facility]fellow [facility] Hospital Health SystemSodium [Moles/Vol]144 mmol/L134 - 146 mmol/LPrEllis Fischel Cancer Centerica Health SystemUrea nitrogen [Mass/Vol]35 mg/dL High5 - 27 mg/dLSelect Medical Specialty [facility], Inc SystemCortisolon 88-32-9465Zftxrega [Mass/Vol] 16.6 ug/dLSelect Medical Specialty Hospital - [facility], Inc SystemCortisol [Mass/Vol]on 33-17-1173ZblKfpepz Health CzyzndOATDCGYS94.6 ug/dLNormalSt. Rita's HospitalComment on above: Result Comment: Due to the diurnal variation of cortisollevels in normal subjects, all cortisolmeasurements should be referenced to thetime of day of sample collection.AM Cortisol Age>=6 6.7-22.4 ug/dLPM Cortisol Age>=6 <10 ug/dL Performed By: #### 2143-6, 46777-5 ####[facility] ([id number])[address], [place] [address]DYJUVUDHfa 81-85-8404Zfhkxrlf [Mass/Vol]167 ng/jZSkjqsc08-091 St. Rita's HospitalComment on above:Performed By: #### CBCA, 7-1, 56203-8, 6-4, FEPR, CMP, PINR ####[facility] ( [id number])[address], [place] [address]Yvbfdhkrof 10-10-2023 Ferritin [Mass/Vol]167 ng/mL24 - 336 ng/mLOhioHealth Grant Medical CenterFerritin [Mass/Vol]on 94-28-9944NcqBvpneaAdena Fayette Medical CenterHGB AND HCTon 35-71-0158Ojnylpjwtd (Bld) [Volume fraction]20.9 %Def08-12QfuJstgnjSt. Rita's HospitalComment on above: Performed By: #### HH ####[facility] ([id number])[address] [place] [address]Ktajicrgvi (Bld) [Mass/Vol]7.2 g/dLLow 13.0-17.0St. Rita's HospitalComment on above:Performed By: #### HH ####[facility] ([id number])[address] [place] [address]Eggktuwrle and hematocrit, bloodon 25-60-8184Rdhqrjgijn (Bld) [Volume fraction]20.9 %Low39 - 49 %[facility] Medical CenterHemoglobin (Bld) [Mass/Vol]7.2 g/dLLow13.0 - 17.0 g/dLOhioHealth Grant Medical CenterInterpretation and review of laboratory resultsAbnormalOhioHealth Grant Medical CenterProAdams County Regional Medical CenterIRON PROFILEon 29-12-5087Ttrw [Mass/Vol]46 ug/cDKkl66-681YqxAapusmSt. Rita's Hospital Comment on above:Performed By: #### CBCA, 7-1, 92395-1, 6-4, FEPR, CMP, PINR ####[facility] ([id number])[address], [place] [address]UMRC JBIQWOK629 ug/gSEnufjz960-332TmnCfgdpwSt. Rita's Hospital Comment on above:Performed By: #### MARVA, 7-1, 93271-3, 6-4, FEPR, CMP, PINR ####[facility] ([id number])[address], [address] [place] [address]MOCS DUQBGLDZMH45 % KDARWLBCFUZkr75-43RavTtwoek [place] HospitalComment on above:Performed By: #### MARVA, 2776-, 86268-8, 2275-4, FEPR, CMP, PINR ####[facility] ([id number])[address], [address] [place] [address]Scmweuf magnesiumon 17-53-8112Mtmhtmtut Ionized ISE (Bld) [Moles/Vol]0.80 mmol/LHigh0.45 - 0.74 mmol/LProMedOhioHealth Grant Medical CenterIron and TIBC on 48-53-1374Iiaftrpglrgcwl and review of laboratory resultsAbnormalProUniversity Hospitals Health System SystemIron [Mass/Vol]46 ug/dLLow50 - 212 ug/dLSelect Medical Specialty [facility], Inc SystemIron binding capacity [Mass/Vol]279 ug/dL250 - 425 ug/dLThe Christ Hospitaln saturation [Mass fraction]17LowAurora Medical Center-[facility] System MAGNESIUMon 28-68-7102Oasdhgvzk [Mass/Vol]1.6 mg/dLLow1.8-2.6St. Rita's HospitalComment on above:Performed By: #### MARVA, 2777-1, 76176-9, 6-4, FEPR, CMP, PINR ####[facility] ([id number])[address], [address] [place] [address]Bhxbasctczq 21-50-0058Iocvpxbuq [Mass/Vol]1.6 mg/dLLow1.8 - 2.6 mg/dLProMedica Health SystemMagnesium Ionized ISE (Bld) [Moles/Vol]on 11-69-8869Lazccoasepeivk and review of laboratory resultsAbnormalOhioHealth Grant Medical CenterProAdams County Regional Medical CenterMagnesium [Moles/Vol]0.80 mmol/LHigh 0.45-0.74ProAkron Children'S HospitalComment on above:Result Comment: NEW REFERENCE RANGEPerformed By: #### 03883-0 ####[facility] ([id number])[address], [address] [place] [address] 59427Uw Panel Informationon 07-07-0598Aniusrfsobojbg and review of laboratory resultsAbnormalProAdams County Regional Medical CenterProAdams County Regional Medical CenterPHOSPHORUSon 56-40-7612Qdqhbedoj [Mass/Vol] 3.4 mg/dLNormal2.4-4.9St. Rita's HospitalComment on above:Performed By: #### MARVA, 2777-1, 88160-5, 2275-, FEPR, CMP, PINR ####[facility] ([id number])[address], [address] [place] [address] 59420EECZEVTTZxx 10-10-2023 Potassium [Moles/Vol]4.0 mmol/LNormal3.5-5.0St. Rita's HospitalComment on above:Performed By: #### 43095-2, 2823-3 ####[facility] ([id number])[address], [address] [place] [address] 63872BNCUSIN AND INRon 89-94-6052STT Coag (PPP) [Relative time]1.2 {INR}High0.8-1.1PMercy Health St. Anne HospitalComment on above:Performed By: #### MARVA, 2777-1, 58189-2, 2275-4, FEPR, CMP, PINR ####[facility] ([id number])[address], [address] [place] [address] 59625BR Coag (PPP) [Time]13.5 sHigh9.8-13.2PMercy Health St. Anne HospitalComment on above:Performed By: #### CBCA, 2777-1, 78691-4, 2276-4, FEPR, CMP, PINR ####[facility] ([id number])[address], [address] [place] [address] 27691Zdpjalcpubch 08-33-9153Dcsdqclyv [Mass/Vol]3.4 mg/dL2.4 - 4.9 mg/dLSelect Medical Specialty Hospital [facility], Inc SystemPotassiumon 62-42-2111Bbwegeoxk [Moles/Vol]4.0 mmol/L3.5 - 5.0 mmol/LProMedica [facility] SystemPotassium [Moles/Vol]on 10-10-2023 ProMMadelia Community Hospital SystemProcalcitoninon 00-78-7450Jgdeplyosflbv [place] [Mass/Vol]0.31 ng/mLHighNINF - 0.05 ng/mLSelect [facility], [facility] SystemProcalcitonin [place] [Mass/Vol] 0.37 ng/mLHighNINF - 0.05 ng/mLSelect [facility] Specialty [facility], Inc SystemProcalcitonin [place] [Mass/Vol]on 78-51-5070Ydkrrrvyjobrud and review of laboratory resultsAbnormal [facility] CenterProUniversity [facility]als [facility] System SystemPROCALCITONIN0.31 ng/mLHigh<0.05 St[address] Rita's HospitalComment on above:Result Comment: NOTE<0.50 ng/mL - Low risk of severe sepsis and/or septic shock.<2.00 ng/mL -Recommend retesting within 6-24 hours.>2.00 ng/mL - High risk of sepsis and/or septic shock. Performed By: #### 85219-5, 2823-3 ####[facility] ([id number])[address], [address] [place] [address] 01427Rskqyaybxvrevb and review of laboratory resultsAbnormalTorrance State Hospital PROCALCITONIN0.37 ng/mLHigh<0.05St. Rita's HospitalCompontiac general hospital on above:Result Comment: NOTE<0.50 ng/mL - Low risk of severe sepsis and/or septic shock.<2.00 ng/mL -Recommend retesting within 6-24 hours.>2.00 ng/mL - High risk of sepsis and/or septic shock.Performed By: #### 2143-6, 71312-9 ####[facility] ([id number])[address], [address] [place] [address]Fdbtgxx & INRon 63-87-2043QZG Coag (PPP) [Relative time]1.2 {INR}[facility] Interpretation and review of laboratory resultsAbnoFirstHealth Moore Regional Hospital - RichmondPT Coag (PPP) [Time]13.5 [facility] CenterERUM IMMUNOFIXATIONon 70-10-1293YxX [Mass/Vol]329 mg/vOSjuyhh49-366UfgMurdiv [place] HospitalComment on above:Performed By: #### SIFE ####[facility] ([id number])[address], [address] [place] [address] 93780AcS [Mass/Vol]915 mg/dL Eqbfng795-6496UpoIjpyed [place] HospitalComment on above:Performed By: #### SIFE ####[facility] ([id number])[address] [address]WfQ [Mass/Vol]mg/eYHqc43-722MyaTvabdu [place] HospitalComment on above: Performed By: #### SIFE ####[facility] ([id number])[address] [address]UKCCGA PROFILE INTERPSEE SEPARATE REPORT NormalProRegional Medical Centerca Paynesville HospitalComment on above:Performed By: #### SIFE ####[facility] ([id number])[address] [address]KJVKI CULTUREon 64-20-5184Sjwsqdup identified Cx Nom (U)CULTURE RESULTS 10,000 to 50,000 ORGANISMS/mL DOROTHEA ALBICANSAbnoThe [facility]vue Hospital HospitalComment on above:Performed By: #### 630-4 ####[facility] ([id number])[address], [address], [place] [address]TC ABDOMEN LMTD WITH DUPLEXon 94-16-3426AX ABDOMEN LMTD WITH DUPLEXNormalProAkron Children'S HospitalUS.doppler Abdominal vessels limitedon 86-93-5882HWZREZJNHRQweLledfl Health SystemRadiology Study observation (narrative)[facility] Grant Medical CenterUS.doppler Abdominal vessels limitedOrdered By: Braulio De Anda on 33-75-9562OjoHwnmezAdena Fayette Medical Center Work Phone: VENOUS BLOOD GASon 38-89-6467JRPPK'S TESTNormal St. Rita's HospitalComment on above:Performed By: #### VBG ####[facility] ([id number])[address] [place], [place] [address]Cshg excess Calc (Bld) [Moles/Vol]7.0 mmol/LHigh0.0-2.0ProRegional Medical Centerca Paynesville HospitalComment on above:Performed By: #### VBG ####[facility] ([id number])[address] [place], [place] [address]Nqew sbvvsqpeqtg88.6 [degF]Lkfppp23.0ProRegional Medical Centerca Paynesville HospitalComment on above:Performed By: #### VBG ####[facility] ([id number])[address] [place], [place] [address]GQK4 (Bld) [Moles/Vol]32.7 mmol/L High20.0-24.0ProRegional Medical Centerca Paynesville HospitalComment on above:Performed By: #### VBG ####[facility] ([id number])[address] [place] [address] INSP. O2 CONC.28 %NormalProRegional Medical Centerca Paynesville HospitalComment on above:Performed By: #### VBG ####[facility] ([id number])[address] [place], [place] [address]Cfjwie saturation in Blood73.0 %Low>80.0ProMedica Paynesville HospitalComment on above:Performed By: #### VBG ####[facility] ([id number])[address] [place], [place] [address]MOMENF SOURCENCNormalProMedica Ward HospitalComment on above:Performed By: #### VBG ####[facility] ([id number])[address] [place], [place] [address]QBN8, JYXGFX35.5 AQJRDnim43-92KzyKovkki Ward HospitalComment on above:Performed By: #### VBG ####[facility] ([id number])[address] [place], [place] [address]BW, VENOUS7.728Dmdhff7.320-7.420 ProMbullock county hospitala Paynesville HospitalComment on above:Performed By: #### VBG ####[facility] ([id number])[address] [place], [place] [address]ZM6, FNFFEE91 FUULObtfhp76-20AnoTgsxtw Ward HospitalComment on above:Performed By: #### VBG ####[facility] ([id number])[address] [place] [address] SAMPLE SITEN/ANormalProMedica Paynesville HospitalComment on above:Performed By: #### VBG ####[facility] ([id number])[address] [place], [place] [address]DPMRSU TYPEVENOUSNormalProMedica Paynesville HospitalComment on above:Performed By: #### VBG ####[facility] ([id number])[address] [place] [address]OWO AND AUTO DIFFon 53-80-3845MOZJEKRC BASOPHIL0.1 X10E9/LNormal0.0-0.2 ProMbullock county hospitala Ward HospitalComment on above:Performed By: #### PINR, CMP, 37111-6, 2777-1, CBCA ####[facility] ([id number])[address], [address], [place] [address]BWTYKUKW NEUTROPHIL7.6 X10E9/LHigh1.5-6.6ProCommunity [facility] HospitalComment on above:Performed By: #### EBONY RUCKER, , 2776-02, CBCA ####[facility] ([id number])[address], [address], [place] [address]Yjrsnxurz/100 WBC (Bld)1.0 %NormalProRegional Medical Centerca Paynesville HospitalComment on above:Performed By: #### EBONY RUCKER, , 2776-02, CBCA ####[facility] ([id number])[address], [address], [place] [address]Vvzunldviqi (Bld) [#/Vol]0.3 10*3/uLNormal0.0-0.4ProCommunity Memorial Hospital HospitalComment on above: Performed By: #### EBONY RUCKER, , 2776-02, CBCA ####[facility] ([id number])[address] [address], [place] [address]Kowrweqtvwl/100 WBC (Bld)3.2 %NormalClinton Memorial Hospital HospitalComment on above:Performed By: #### EBONY RUCKER, , 2776-02, CBCA ####[facility] ([id number])[address], [address], [place] [address]Wnvbotjtumo distribution width (RBC) [Ratio]16.5 %High11.5-15.0ProCommunity Memorial Hospital HospitalComment on above: Performed By: #### EBONY RUCKER, , 2776-02, CBCA ####[facility] ([id number])[address], [address], [place] [address]Azstgowvnp (Bld) [Volume fraction]23.2 %Zjv69-45QpbLbtqwu Ward HospitalComment on above: Performed By: #### EBONY RUCKER, , 2776-02, CBCA ####[facility] ([id number])[address], [address], [place] [address]Axlyfnxrrg (Bld) [Mass/Vol]7.7 g/dLLow13.0-17.0ProMedica [place]nesville HospitalComment on above: Performed By: #### EBONY RUCKER, , 2776-02, CBCA ####[facility] ([id number])[address], [address], [place] [address]Tsvtskptecn (Bld) [#/Vol]0.8 10*3/uLLow1.0-3.5ProMedica [place]ville HospitalComment on above:Performed By: #### EBONY RUCKER, , 2776-02, CBCA ####[facility] ([id number])[address], [address], [place] [address]Rdxjpbipnjd/100 WBC (Bld) 8.3 %NormalProCommunity Memorial Hospital HospitalComment on above:Performed By: #### EBONY RUCKER, , 2776-02, CBCA ####[facility] ([id number])[address], [address], [place] [address]UTK (RBC) [Entitic mass]32.7 zlNhfjew00-49 [facility] [place] HospitalComment on above:Performed By: #### PINR, EBONY, , 2776-02, CBCA ####[facility] ([id number])[address], [address], [place] [address]USME (RBC) [Mass/Vol]33.1 g/hZCsdyfv54-61OpxEjseqi [place] HospitalComment on above:Performed By: #### PINR, EBONY, , 2776-02, CBCA ####[facility] ([id number])[address], [address], [place] [address]LOZ (RBC) [Entitic vol]99 oCQtddyy89-861YioDygkfw Ward HospitalComment on above:Performed By: #### EBONY RUCKER, , 2776-02, CBCA ####[facility] ([id number])[address], [address], [place] [address]Gzlaalfyn (Bld) [#/Vol]0.9 10*3/uLNormal0-0.9ProMedica Ward HospitalComment on above: Performed By: #### EBONY RUCKER, , 2776-02, CBCA ####[facility] ([id number])[address], [address], [place] [address]Gjutijfzn/100 WBC (Bld)9.0 %NormalProMedica Ward HospitalComment on above:Performed By: #### EBONY RUCKER, , 2776-02, CBCA ####[facility] ([id number])[address], [address], [place] [address]Jxwhlslgume/100 WBC (Bld) 78.5 %NormalProMedica Ward HospitalComment on above:Performed By: #### EBONY RUCKER, , 2776-02, CBCA ####[facility] ([id number])[address], [address], [place] [address]Mufpubfh mean volume (Bld) [Entitic vol]10.5 fLNormal7-12ProMedica [facility] HospitalComment on above:Performed By: #### EBONY RUCKER, , 2776-02, CBCA ####[facility] ([id number])[address], [address], [place] [address]Durkanlce (Bld) [#/Vol]110 10*3/gJGgj959-133 [facility] HospitalComment on above:Performed By: #### EBONY RUCKER, 79424-7, 2776-, CBCA ####[facility] ([id number])[address], [address] [place] [address]MBQ COUNT2.35 X10E12/LLow4.10-5.70[facility] Comment on above:Performed By: #### EBONY RUCKER, , 2776-02, CBCA ####[facility] ([id number])[address] [facility], [address] [place] [address]KXG (Bld) [#/Vol]9.7 10*3/uLNormal4.0-11.0St. Rita's HospitalComment on above: Performed By: #### EBONY RUCKER, , 2776-02, CBCA ####[facility] ([id number])[address] [facility], [address] [place] [address]XRJ auto differential on 17-67-4536Pavelsbtg (Bld) [#/Vol]0.1 10*3/uLSelect Medical Specialty [facility], Inc System Basophils/100 WBC (Bld)1.0 %[facility] Grant Medical CenterEosinophils (Bld) [#/Vol]0.3 10*3/uLSelect Medical Specialty [facility], [facility] SystemEosinophils/100 WBC (Bld)3.2 %[facility] Grant Medical CenterErythrocyte distribution width (RBC) [Ratio]16.5 %High11.5 - 15.0 % [facility] SystemHematocrit (Bld) [Volume fraction]23.2 %Low39 - 49 % [facility] SystemHemoglobin (Bld) [Mass/Vol]7.7 g/dLLow13.0 - 17.0 g/dL ProMedic Health SystemInterpretation and review of laboratory resultsAbnormal [facility] SystemLymphocytes (Bld) [#/Vol]0.8 10*3/uLLowSelect Medical Specialty Hospital - [facility], Inc SystemLymphocytes/100 WBC (Bld)8.3 %[facility] HospitalH (RBC) [Entitic mass]32.7 pg27 - 34 pgPAdena Fayette Medical CenterMCHC (RBC) [Mass/Vol]33.1 g/dL32 - 36 g/dLOhioHealth Grant Medical CenterMCV (RBC) [Entitic vol]99 fL80 - 100 [facility] CenterMonocytes (Bld) [#/Vol]0.9 10*3/uLOhioHealth Grant Medical Center Monocytes/100 WBC (Bld)9.0 %[facility] Grant Medical CenterNeutrophils (Bld) [#/Vol]7.6 10*3/uLHighOhioHealth Grant Medical CenterNeutrophils/100 WBC (Bld)78.5 %[facility] Grant Medical CenterPlatelet mean volume (Bld) [Entitic vol]10.5 fL7 - 12 [facility] Regional Medical CenterPlatelets (Bld) [#/Vol]110 10*3/uLOhioHealth Nelsonville Health CenterRBC (Bld) [#/Vol]2.35 10*6/[facility] HospitalWBC corrected for nucl RBC Auto (Bld) [#/Vol]9.7Torrance State HospitalCOMPREHENSIVE METABOLIC PANELon 91-47-7633Mqnfiko [Mass/Vol]3.5 g/dLNormal3.2-5.3PMercy Health St. Anne HospitalComment on above:Performed By: #### EBONY RUCKER, , 2777-1, CBCA ####[facility] ([id number])[address], [address], [place] [address]ZGJ [Catalytic activity/Vol]64 U/ZRllamp89-828YrqMewria [place] HospitalComment on above:Performed By: #### EBONY RUCKER, , 2777-, CBCA ####[facility] ([id number])[address] [facility], [address], [place] [address]MRX [Catalytic activity/Vol]8 U/LNormal0-40ProCommunity [facility] HospitalComment on above:Performed By: #### EBONY RUCKER, , 2776-02, CBCA ####[facility] ([id number])[address], [address], [place] [address]Nosls gap [Moles/Vol]11 mmol/LNormal5-15[facility] HospitalComment on above:Performed By: #### EBONY RUCKER, , 2776-02, CBCA ####[facility] ([id number])[address], [address], [place] [address]GLJ [Catalytic activity/Vol]12 U/LNormal0-41Pro[facility] HospitalComment on above:Performed By: #### EBONY RUCKER, , 2776-02, CBCA ####[facility] ([id number])[address], [address], [place] [address]Lrypjifoj [Mass/Vol]0.8 mg/dLNormal0.3-1.2ProMedbaptist medical center east Ward HospitalComment on above:Performed By: #### EBONY RUCKER, , 2776-02, CBCA ####[facility] ([id number])[address], [address], [place] [address]Kigonif [Mass/Vol]9.4 mg/dL Normal8.5-10.5ProMedbaptist medical center east Ward HospitalComment on above:Performed By: #### EBONY RUCKER, , 2776-02, CBCA ####[facility] ([id number])[address], [address], [place] [address]Budouumi [Moles/Vol]99 mmol/WJksvln27-530 [facility] HospitalComment on above:Performed By: #### EBONY RUCKER, , 2776-02, CBCA ####[facility] ([id number])[address], [address], [place] [address]JN9 [Moles/Vol]33 mmol/EDahf06-07OubArukdf [facility] Comment on above:Performed By: #### EBONY RUCKER, , 2776-02, CBCA ####[facility] ([id number])[address], [address] [address] Creatinine [Mass/Vol]3.49 mg/dLHigh0.60-1.30ProAkron Children'S HospitalComment on above:Result Comment: METHOD TRACEABLE TO IDMS STANDARDPerformed By: #### EBONY RUCKER, , 2776-02, CBCRachel ####[facility] ([id number])[address] [address], [place] [address]KKN/1.73 sq M.predicted among non-blacks MDRD (S/P/Bld) [Vol rate/Area]18 mL/min/{1.73_m2}Low>59ProAkron Children'S Hospital Comment on above:Result Comment: Reported eGFR is based on theCKD-EPI 2020 equation that doesnot use a race coefficient.Performed By: #### EBONY RUCKER, , 2776-02, CBCA ####[facility] ([id number])[address] [address], [place] [address]Tzgwrpc [Mass/Vol]113 mg/wLWyrs07-93 ProMUniversity Hospitals Conneaut Medical CenterComment on above:Performed By: #### EBONY RUCKER, , 2776-02, CBCA ####[facility] ([id number])[address] [address], [place] [address]Hxcqoxypo [Moles/Vol]3.8 mmol/LNormal3.5-5.0ProAkron Children'S HospitalComment on above:Performed By: #### EBONY RUCKER, , 2776-02, CBCA ####[facility] ([id number])[address] [address], [place] [address]Fbudaby [Mass/Vol]6.8 g/dLNormal6.0-8.0ProAkron Children'S HospitalComment on above:Performed By: #### EBONY RUCKER, 23432-8, 277-1, CBCA ####[facility] ([id number])[address], [address] [place] [address]Itkfkh [Moles/Vol]143 mmol/LUymsid036-463ZqoDnnsaz [place] HospitalComment on above: Performed By: #### EBONY RUCKER, , 2776-, CBCA ####[facility] ([id number])[address], [address] [place] [address]Ymeu nitrogen [Mass/Vol]38 mg/dLHigh5-27ProAkron Children'S HospitalComment on above:Performed By: #### EBONY RUCKER, , 2776-, CBCA ####[facility] ([id number])[address], [address] [place] [address]Jdzqshbqiaelx metabolic panelon 96-04-5936Umzzigp [Mass/Vol]3.5 g/dL3.2 - 5.3 g/dLProMedica Health SystemALP [Catalytic activity/Vol]64 U/L39 - 130 U/LProMedica Health SystemALT No additional P-5'-P [Catalytic activity/Vol]8 U/L0 - 40 U/LProMedica Health SystemAnion gap [Moles/Vol]11 mmol/L5 - 15 mmol/LProMedica Health SystemAST [Catalytic activity/Vol]12 U/L0 - 41 U/LProMedica Health SystemBilirubin [Mass/Vol]0.8 mg/dL0.3 - 1.2 mg/dLProMedica Health SystemCalcium [Mass/Vol]9.4 mg/dL8.5 - 10.5 mg/dLProMedica Health SystemChloride [Moles/Vol]99 mmol/L98 - 109 mmol/LProMedica Health SystemCO2 [Moles/Vol]33 mmol/LHigh22 - 32 mmol/L [facility] SystemCreatinine [Mass/Vol]3.49 mg/dLHigh0.60 - 1.30 mg/dL [facility] Grant Medical CentereGFR (CKD-EPI)non-race ogqctpayx68Xih- PINFPFisher-Titus Medical Center SystemGlucose [Mass/Vol]113 mg/pXFgmm65 - 99 mg/dLOhioHealth Grant Medical Center Interpretation and review of laboratory resultsAbnormalOhioHealth Grant Medical Center Potassium [Moles/Vol]3.8 mmol/L3.5 - 5.0 mmol/LProMedBarnesville Hospital SystemProtein [Mass/Vol]6.8 g/dL6.0 - 8.0 g/dLNovant Health New Hanover Regional Medical Centerodium [Moles/Vol]143 mmol/L134 - 146 mmol/LPrParkwood Hospital SystemUrea nitrogen [Mass/Vol]38 mg/dL High5 - 27 mg/dLOhioHealth Grant Medical CenterMAGNESIUMon 57-66-4414Ocbhpspfs [Mass/Vol]2.0 mg/dLNormal1.8-2.6St. [facility]'s HospitalComment on above: Performed By: #### EBONY RUCKER, , 2776-02, CBCA ####[facility] ([id number])[address], [address] [place] [address]Kdyroppxrxq 10-09-2023 Magnesium [Mass/Vol]2.0 mg/dL1.8 - 2.6 mg/dLOhioHealth Grant Medical CenterNo Panel Informationon 77-59-3139IdvRuqewoAdena Fayette Medical CenterPHOSPHORUSon 31-08-7661Knbuftidd [Mass/Vol]3.9 mg/dLNormal2.4-4.9ProAkron Children'S HospitalComment on above: Performed By: #### EBONY RUCKER, 96017-9, 2777-1, CBCA ####[facility] ([id number])[address], [address] [place] [address]BVAPYHQHVvl 10-09-2023 Potassium [Moles/Vol]4.2 mmol/LNormal3.5-5.0St. Rita's HospitalComment on above:Performed By: #### 2823-3 ####[facility] ([id number])[address], [place] [address]ATWODFL AND INRon 87-11-8440RPQ Coag (PPP) [Relative time]1.1 {INR}Normal0.8-1.1PPeoples Hospital HospitalComment on above:Performed By: #### EBONY RUCKER, 50092-4, 2776-1, CBCA ####[facility] ([id number])[address], [place] [address]JK Coag (PPP) [Time]12.5 sNormal9.8-13.2PPeoples Hospital HospitalComment on above:Performed By: #### EBONY RUCKER, , 2776-02, CBCA ####[facility] ([id number])[address], [address], [place] [address]Goxkidvslfrn 37-99-0832Femfghzck [Mass/Vol]3.9 mg/dL2.4 - 4.9 mg/dLSelect Medical Specialty [facility], [facility] System Potassiumon 10-96-2420Gokiucdth [Moles/Vol]4.2 mmol/L3.5 - 5.0 mmol/LProMedbaptist medical center east Health SystemPotassium [Moles/Vol]on 60-49-3911DydXfqrlg Health SystemProtime & INRon 17-22-5502ZXE Coag (PPP) [Relative time]1.1 {INR}[facility] Health SystemPT Coag (PPP) [Time]12.5 [facility] SystemProUniversity Hospitals Health System SystemTHYROID PROFILEon 20-91-8123Nues T4 [Mass/Vol]1.31 ng/dLNormal0.61-1.60ProCommunity [facility] HospitalComment on above:Performed By: #### THYR ####[facility] ([id number])[address], [place] [address]JUR4.11 uIU/mLNormal 0.49-4.67ProCommunity [facility] HospitalComment on above:Performed By: #### THYR ####[facility] ([id number])[address], [place] [address]Qgsnecv profile includes TSH FT4on 12-05-0030Ssbi T4 [Mass/Vol]1.31 ng/dL 0.61 - 1.60 ng/dLDavis Regional Medical Center Qn1.11 m[IU]/LProMedOhioHealth Grant Medical CenterProMedica [facility] SystemURINALYSISon 33-84-0191Stakesdcq Ql (U)Negative NormalNEGProMedica Ward HospitalComment on above:Performed By: #### UA ####[facility] ([id number])[address], [address] [place] [address]EKHAE/HGBSmallAbnormalNEGProMedica Ward HospitalComment on above: Performed By: #### UA ####[facility] ([id number])[address], [address] [place] [address]Msrcm (U)YELLOWNormalYELLOWProMedica Ward HospitalComment on above:Performed By: #### UA ####[facility] ([id number])[address], [address] [place] [address]Fmsmoeq Ql (U)100 mg/dL AbnormalNEGProMedica Ward HospitalComment on above:Performed By: #### UA ####[facility] ([id number])[address], [address] [place] [address]Kpyszmd Ql (U)NegativeNormalNEGProMedica Ward HospitalComment on above: Performed By: #### UA ####[facility] ([id number])[address], [address] [place] [address]Emvetvvhs esterase Test strip Ql (U)Large AbnormalNEGProMedica Ward HospitalComment on above:Performed By: #### UA ####[facility] ([id number])[address], [address] [place] [address]HENMEASXFCHRYDxtpjczfJDLFJekWkiell Ward HospitalComment on above: Performed By: #### UA ####[facility] ([id number])[address], [address] [place] [address]Drmjicu Ql (U)NegativeNormalNEGProMedica Ward HospitalComment on above:Performed By: #### UA ####[facility] ([id number])[address], [address] [place] [address]rK (U)6.0 [pH] Normal5.0-8.5ProMedica Ward HospitalComment on above:Performed By: #### UA ####[facility] ([id number])[address], [address] [place] [address]Mlckklf Ql (U)30 mg/dLAbnormalNEGProMedica Ward HospitalComment on above: Performed By: #### UA ####[facility] ([id number])[address], [address] [place] [address] 28794P.B.CELLS6 /hpfHigh0-5ProMedica Ward HospitalComment on above:Performed By: #### UA ####[facility] ([id number])[address] [address] [place] [address] 55189Fdpywvrz gravity (U) [Rel density]1.840Ostjss7.003-1.035ProMedica Ward HospitalComment on above: Performed By: #### UA ####[facility] ([id number])[address] [address] [place] [address] [id number] EPITHELIUM2 /hpfNormal0-5ProMedica Ward HospitalComment on above:Performed By: #### UA ####[facility] ([id number])[address], [address] [place] [address] 97230OSHJQGXFDETFM AbnormalCLEARProMedica Ward HospitalComment on above:Performed By: #### UA ####[facility] ([id number])[address], [address] [place] [address] 40932Yievnkpnwetv (U) [Mass/Vol]mg/dLNormal<1.1PMercy Health St. Anne HospitalComment on above:Performed By: #### UA ####[facility] ([id number])[address], [address] [place] [address] 42167J.B.YPEKD335 /hpfHigh0-5PMercy Health St. Anne HospitalComment on above:Performed By: #### UA ####[facility] ([id number])[address], [address] [place] [address] 32312Srgvsfxbpkky 10-09-2023 Bilirubin Ql (U)NegativeNegative^NegativeSelect Medical Specialty Hospital - Youngstownca Health SystemColor (U)YELLOW YELLOW^YELLOWSelect Medical Specialty Hospital - [facility], Inc SystemEpithelial cells Auto (Urine sed) [#/Area]2 ProMMadelia Community Hospital SystemGlucose (U) [Mass/Vol]100 mg/dLAbnormalNegative^Negative [facility] SystemHemoglobin Auto test strip Ql (U)SmallAbnormal Negative^NegativeSelect Medical Specialty Hospital - Youngstownca Health SystemInterpretation and review of laboratory resultsAbnormalSelect Medical Specialty Hospital - Youngstownca Health SystemKetones (U) [Mass/Vol]Negative Negative^Negative mg/dLSelect Medical Specialty [facility], Inc SystemLeukocyte esterase Auto test strip Ql (U)LargeAbnormalNegative^NegativeSelect Medical Specialty Hospital - Youngstownca Health SystemMucus Ql (Urine sed) PRESENTAbnormalNONE^NONESelect Medical Specialty [facility] Health SystemNitrite Auto test strip Ql (U) NegativeNegative^NegativeSelect Medical Specialty Hospital - Youngstownca Health SystempH (U)6.0 [pH]5.0 - 8.5PFisher-Titus Medical Center SystemProtein (U) [Mass/Vol]30 mg/dLAbnormalNegative^NegativeSelect Medical Specialty Hospital - [facility] Health SystemRBC Auto (Urine sed) [#/Area]6HighSelect Medical Specialty Hospital - [facility] Health SystemSpecific gravity Refractometry automated (U) [Rel density]1.0121.003 - 1.035[facility] Health SystemTurbidity Ql (U)HAZYAbnormalCLEAR^CLEARSelect Medical Specialty Hospital [facility], Inc System Urobilinogen Qn (U)NINFPAdena Fayette Medical CenterWBC Auto (Urine sed) [#/Area]440 [facility] CenterXR CHEST 1 VWon [id number] CHEST 1 [facility] SystemXR Chest Single viewon 10-09-2023 SECTRAVirtua BerlinRadiology Study observation (narrative) [facility] CenterXR Chest Single viewOrdered By: Edilberto Willoughby on [id number] Fayette Medical Center Work Phone: Body Fluid cell count with differentialon 10-08-2023 Appearance (Body fld)HAZCleveland Clinic Avon HospitalColor (Body fld)[facility] SouthLaboratory comment Erik (Report) Interpretation-------- [facility] SystemLymphocytes/100 WBC Manual cnt (Body fld)60 %[facility] SystemMacrophages (Body fld) [#/Vol]12 %[facility] System Mesothelial cells/100 WBC Manual cnt (Body fld)8 %[facility] System Neutrophils/100 WBC (Body fld)20 %[facility] Medical CenterNucleated RBC (Body fld) [#/Vol]2391 /uLOhioHealth Grant Medical CenterRBC (Body fld) [#/Vol]0.123 10*3/uL [facility] Medical Centerpecimen type Nom (Spec)PLEURAL FLUIDTorrance State HospitalCBC AND AUTO DIFFon 15-99-8465WXMZMRFX BASOPHIL0.0 X10E9/LNormal0.0-0.2PMercy Health St. Anne HospitalComment on above:Performed By: #### 2777-1, 90407-4, CBCA, PINR, CMP ####[facility] ([id number])[address] [facility], [address] [place] [address] 93984KHRMEJMJ NEUTROPHIL7.0 X10E9/LHigh1.5-6.6St. Rita's HospitalComment on above:Performed By: #### 2777-1, 29552-8, CBCA, PINR, CMP ####[facility] ([id number])[address], [address], [place] [address]Nljmehbpw/100 WBC (Bld)0.5 %NormalProCommunity Memorial Hospital HospitalComment on above:Performed By: #### 2777-1, , CBCA, PINR, CMP ####[facility] ([id number])[address], [address], [place] [address]Wtsedrghkkw (Bld) [#/Vol]0.2 10*3/uLNormal 0.0-0.4ProCommunity Memorial Hospital HospitalComment on above:Performed By: #### 2777-1, , CBCA, PINR, CMP ####[facility] ([id number])[address], [address], [place] [address]Ffqtfbztneq/100 WBC (Bld)2.3 %Normal ProMCleveland Clinic Euclid Hospital HospitalComment on above:Performed By: #### 2777-, , CBCA, PINR, CMP ####[facility] ([id number])[address], [address] [place] [address] 62496Jaolgjzkiyf distribution width (RBC) [Ratio]16.5 %High 11.5-15.0ProCommunity Memorial Hospital HospitalComment on above:Performed By: #### 2777-1, , CBCA, PINR, CMP ####[facility] ([id number])[address], [address] [place] [address] 26062Selrpoxmpz (Bld) [Volume fraction]21.4 %Low 39-49ProCommunity Memorial Hospital HospitalComment on above:Performed By: #### 2777-1, , CBCA, PINR, CMP ####[facility] ([id number])[address], [address] [place] [address] 13341Cdokxtjdgy (Bld) [Mass/Vol]7.3 g/dLLow13.0-17.0 [facility] HospitalComment on above:Performed By: #### 2777-1, , CBCA, PINR, CMP ####[facility] ([id number])[address], [address] [place] [address]Hofspeijnbr (Bld) [#/Vol]0.9 10*3/uLLow1.0-3.5Pro[facility]ica Paynesville HospitalComment on above:Performed By: #### 2777-1, , CBCA, PINR, CMP ####[facility] ([id number])[address], [address] [place] [address]Qelmiesxecz/100 WBC (Bld)9.9 %NormalProCommunity Memorial Hospital Hospital Comment on above:Performed By: #### 2777-, , CBCA, PINR, CMP ####[facility] ([id number])[address], [address] [place] [address]22[address]OHG (RBC) [Entitic mass]33.4 liAywfyd81-24MymNurfxu [place] HospitalComment on above: Performed By: #### 2777-1, , CBCA, PINR, CMP ####[facility] ([id number])[address], [address] [place] [address] 40702XFMN (RBC) [Mass/Vol] 33.9 g/xBVtelel45-29PsiVkiitn [place] HospitalComment on above:Performed By: #### 2777-1, , CBCA, PINR, CMP ####[facility] ([id number])[address], [address] [place] [address] 16933WCQ (RBC) [Entitic vol]98 uAYimltb88-429QslDbwsla [place] HospitalComment on above:Performed By: #### 2777- 1, , CBCA, PINR, CMP ####[facility] ([id number])[address], [address], [place] [address]Qxwsvgbiv (Bld) [#/Vol]0.8 10*3/uLNormal 0-0.9[facility] HospitalComment on above:Performed By: #### 2777-1, , CBCA, PINR, CMP ####[facility] ([id number])[address], [address], [place] [address]Lnrnskvde/100 WBC (Bld)8.7 %NormalProMedica Ward HospitalComment on above:Performed By: #### 2777-1, , CBCA, PINR, CMP ####[facility] ([id number])[address], [address], [place] [address]Pgrcwfndgdr/100 WBC (Bld)78.6 %NormalProMedica Ward HospitalComment on above:Performed By: #### 2777-1, , CBCA, PINR, CMP ####[facility] ([id number])[address], [address], [place] [address]Fhfdjnfi mean volume (Bld) [Entitic vol]10.3 fLNormal7-12Pro[facility] HospitalComment on above:Performed By: #### 2777-1, , CBCA, PINR, CMP ####[facility] ([id number])[address], [address], [place] [address]Bncvjszvo (Bld) [#/Vol]94 10*3/zSJvd617-050YofHwwatc Ward HospitalComment on above:Performed By: #### 2777-1, , CBCA, PINR, CMP ####[facility] ([id number])[address], [address], [place] [address]TOI COUNT2.17 X10E12/LLow 4.10-5.70[facility] HospitalComment on above:Performed By: #### 2777-1, 50492-1, CBCA, PINR, CMP ####[facility] ([id number])[address], [address] [place] [address]AMD (Bld) [#/Vol]8.9 10*3/uLNormal4.0-11.0 [facility] HospitalCompontiac general hospital on above:Performed By: #### 2777-1, 16495-4, CBCA, PINR, CMP ####[facility] ([id number])[address], [address], [place] [address]QDD auto differentialon 70-62-6399Vuejoqrel (Bld) [#/Vol]0.0 10*3/[facility]Basophils/100 WBC (Bld)0.5 %[facility] Medical CenterEosinophils (Bld) [#/Vol]0.2 10*3/[facility] Eosinophils/100 WBC (Bld)2.3 %[facility] Medical CenterErythrocyte distribution width (RBC) [Ratio]16.5 %High11.5 - 15.0 %[facility] Medical CenterHematocrit (Bld) [Volume fraction]21.4 %Low39 - 49 %[facility] Medical CenterHemoglobin (Bld) [Mass/Vol]7.3 g/dLLow13.0 - 17.0 g/dLOhioHealth Grant Medical CenterInterpretation and review of laboratory resultsAbnormProtestant HospitalLymphocytes (Bld) [#/Vol]0.9 10*3/uLLowOhioHealth Grant Medical CenterLymphocytes/100 WBC (Bld)9.9 % [facility] HospitalH (RBC) [Entitic mass]33.4 pg27 - 34 pgPAdena Fayette Medical CenterMCHC (RBC) [Mass/Vol]33.9 g/dL32 - 36 g/dLOhioHealth Grant Medical CenterMCV (RBC) [Entitic vol]98 fL80 - 100 [facility] CenterMonocytes (Bld) [#/Vol]0.8 10*3/[facility]intMonocytes/100 WBC (Bld)8.7 %[facility] Medical CenterNeutrophils (Bld) [#/Vol]7.0 10*3/[facility] Neutrophils/100 WBC (Bld)78.6 %[facility] Medical CenterPlatelet mean volume (Bld) [Entitic vol]10.3 fL7 - 12 [facility] CenterPlatelets (Bld) [#/Vol]94 10*3/[facility] SystemRBC (Bld) [#/Vol]2.17 10*6/[facility] HospitalWBC corrected for nucl RBC Auto (Bld) [#/Vol]8.9Torrance State HospitalCOMPREHENSIVE METABOLIC PANELon 72-46-0928Nazvykr [Mass/Vol]3.6 g/dLNormal3.2-5.3PMercy Health St. Anne HospitalComment on above: Performed By: #### 2777-1, 09748-4, CBCA, PINR, CMP ####[facility] ([id number])[address], [address] [place] [address] 07446GQG [Catalytic activity/Vol]61 U/LHmotww05-870YwmMwspjs [place] HospitalComment on above: Performed By: #### 2777-1, , CBCA, PINR, CMP ####[facility] ([id number])[address], [address], [place] [address]WZY [Catalytic activity/Vol]9 U/LNormal0-40Pro[facility] HospitalComment on above:Performed By: #### 2777-1, 44481-6, CBCA, PINR, CMP ####[facility] ([id number])[address], [address], [place] [address]Hgpix gap [Moles/Vol]8 mmol/LNormal5-15Pro[facility] HospitalComment on above:Performed By: ###Carolyn 2777-1, , CBCA, PINR, CMP ####[facility] ([id number])[address], [address], [place] [address]RPD [Catalytic activity/Vol]12 U/LNormal0-41[facility] HospitalComment on above:Performed By: #### 2777-1, , CBCA, PINR, CMP ####[facility] ([id number])[address], [address], [place] [address]Arkwqqnru [Mass/Vol]0.6 mg/dLNormal0.3-1.2[facility] HospitalComment on above:Performed By: #### 2777-1, , CBCA, PINR, CMP ####[facility] ([id number])[address], [address], [place] [address]Ibjkmya [Mass/Vol]9.4 mg/dL Normal8.5-10.5[facility]nesville HospitalComment on above:Performed By: #### 2777- 1, , CBCA, PINR, CMP ####[facility] ([id number])[address], [address], [place] [address]Wivkmidv [Moles/Vol]98 mmol/MZlgveu96-229 [facility] HospitalComment on above:Performed By: #### 2777-1, , CBCA, PINR, CMP ####[facility] ([id number])[address], [address], [place] [address]DR9 [Moles/Vol]32 mmol/HAshgnj44-35KkfRxnjdd Ward HospitalComment on above:Performed By: #### 2777-1, , CBCA, PINR, CMP ####[facility] ([id number])[address], [address], [place] [address]Pnhyybyrdd [Mass/Vol]3.37 mg/dLHigh0.60-1.30[facility] Comment on above:Result Comment: METHOD TRACEABLE TO IDAL STANDARDPerformed By: #### 2777-1, , MARVA PINR, CMP ####[facility] ([id number])[address], [address], [place] [address]DNL/1.73 sq M.predicted among non-blacks MDRD (S/P/Bld) [Vol rate/Area]18 mL/min/{1.73_m2}Low>59 [facility] [facility] HospitalComment on above:Result Comment: Reported eGFR is based on theCKD-EPI 2020 equation that doesnot use a race coefficient.Performed By: #### 2777-1, 07105-6, MARVA PINR, CMP ####[facility] ([id number])[address] [address], [place] [address]Knmbnbh [Mass/Vol]117 mg/dL Tere88-03MolPyfvfzAkron Children'S HospitalComment on above:Performed By: #### 2777-1, , CBCRachel, PINR, CMP ####[facility] ([id number])[address] [address], [place] [address]Ntvofmzei [Moles/Vol]4.0 mmol/LNormal3.5-5.0 [facility] HospitalComment on above:Performed By: #### 2777-1, 68189-5, CBCRachel, PINR, CMP ####[facility] ([id number])[address] [address], [place] [address]Qdlfsnw [Mass/Vol]6.5 g/dLNormal6.0-8.0St. [facility]'s HospitalComment on above:Performed By: #### 2777-1, 08842-6, CBCA, PINR, CMP ####[facility] ([id number])[address] [address], [place] [address]Dftmke [Moles/Vol]138 mmol/OAtsppv460-883AziTfcwum [place] HospitalComment on above:Performed By: #### 2777-1, 08583-9, CBCA, PINR, CMP ####[facility] ([id number])[address], [address] [place] [address]Mucf nitrogen [Mass/Vol]33 mg/dLHigh5-27St. [facility]'s HospitalComment on above:Performed By: #### 2777-1, 20590-5, CBCA, PINR, CMP ####[facility] ([id number])[address] [facility], [address] [place] [address]Ghxmoxbepgpdr metabolic panelon 67-97-7614Ocvfedt [Mass/Vol]3.6 g/dL3.2 - 5.3 g/dLProRegional Medical Centerca Health SystemALP [Catalytic activity/Vol]61 U/L39 - 130 U/LProMedica Health SystemALT No additional P-5'-P [Catalytic activity/Vol]9 U/L0 - 40 U/LProMedica Health SystemAnion gap [Moles/Vol]8 mmol/L5 - 15 mmol/LProMedica Health SystemAST [Catalytic activity/Vol]12 U/L0 - 41 U/LProMedica Health SystemBilirubin [Mass/Vol]0.6 mg/dL0.3 - 1.2 mg/dLProRegional Medical Centerca Health SystemCalcium [Mass/Vol]9.4 mg/dL8.5 - 10.5 mg/dLProMedica Health SystemChloride [Moles/Vol]98 mmol/L98 - 109 mmol/LProMedica Health SystemCO2 [Moles/Vol]32 mmol/L22 - 32 mmol/LProMedica Health SystemCreatinine [Mass/Vol]3.37 mg/dLHigh0.60 - 1.30 mg/dLProRegional Medical Centerca Health SystemeGFR (CKD-EPI)non-race mafihspli94Qyz- PINSaint [facility] Glucose [Mass/Vol]117 mg/fDDhhw34 - 99 mg/dLProUniversity Hospitals Health System System Interpretation and review of laboratory resultsAbnormalProRmc [facility] Potassium [Moles/Vol]4.0 mmol/L3.5 - 5.0 mmol/LProMedica Health SystemProtein [Mass/Vol]6.5 g/dL6.0 - 8.0 g/dLNovant Health New Hanover Regional Medical Centerodium [Moles/Vol]138 mmol/L134 - 146 mmol/LPrEllis Fischel Cancer Centerica [facility] SystemUrea nitrogen [Mass/Vol]33 mg/dL High5 - 27 mg/dLOhioHealth Grant Medical CenterGlucose Glucometer (BldC) [Mass/Vol]on 37-82-8821Yjjxrkd [Mass/Vol]114 mg/bCOmgq20 - 99 mg/dLOhioHealth Grant Medical Center Interpretation and review of laboratory resultsAbnoMayo Clinic Health System– Red CedarGlucose [Mass/Vol]114 mg/rJCqeo34-16KheFwcgsvSt. Rita's HospitalGlucose [Mass/Vol]152 mg/iUWblz59 - 99 mg/dLOhioHealth Grant Medical Center Interpretation and review of laboratory resultsAbnoMayo Clinic Health System– Red CedarMAGNESIUMon 51-05-3223Bkrtprwvp [Mass/Vol]2.4 mg/dLNormal 1.8-2.6St. [facility]'s HospitalComment on above:Performed By: #### 2777-1, 31691-1, CBCA, PINR, CMP ####[facility] ([id number])[address] [facility], [address] [place] [address]Qnldjvpyrxn 17-84-7889Euyvtlknn [Mass/Vol] 2.4 mg/dL1.8 - 2.6 mg/dLOhioHealth Grant Medical CenterNo Panel Informationon 10-08-2023 [facility] Medical CenterPHOSPHORUSon 56-05-4283Sveidhice [Mass/Vol]3.9 mg/dL Normal2.4-4.9St. Rita's HospitalComment on above:Performed By: #### 2777- 1, 00377-6, CBCA, PINR, CMP ####[facility] ([id number])[address] [facility], [address] [place] [address] 32379UHUWQFE AND INRon 64-08-8987PRB Coag (PPP) [Relative time]1.0 {INR}Normal0.8-1.1PMercy Health St. Anne HospitalComment on above: Performed By: #### 2777-1, 25510-4, CBCA, PINR, CMP ####[facility] ([id number])[address], [address] [place] [address] 23459HG Coag (PPP) [Time] 12.0 sNormal9.8-13.2PMercy Health St. Anne HospitalComment on above:Performed By: #### 2777-1, 47452-4, CBCA, PINR, CMP ####[facility] ([id number])[address], [address] [place] [address] 87686Praegjhatzzj 10-08-2023 Phosphate [Mass/Vol]3.9 mg/dL2.4 - 4.9 mg/dLOhioHealth Grant Medical CenterProtime & INR on 74-49-1171XBF Coag (PPP) [Relative time]1.0 {INR}[facility] Medical CenterPT Coag (PPP) [Time]12.0 [facility] CenterXR CHEST 1 VWon 58-33-9348JS CHEST 1 [facility] SystemXR Chest Single view on 84-16-5093GEZVVCGCVNWdhWrszqv Health SystemRadiology Study observation (narrative)[facility] Medical CenterXR Chest Single viewOrdered By: Kye Kapadia on 88-21-9793UjnLkpoohAdena Fayette Medical Center Work Phone: ANAEROBE CULTUREon 57-64-6909Vqfeyvhw identified Anaer cx Nom (Unsp spec)CULTURE RESULTS NO GROWTH 5 DAYSNoOhio State University Wexner Medical CenterComment on above:Performed By: #### 635-3 ####[facility] ([id number])[address], [address] [place] [address] AND DIFFon 72-48-4992IUGS FLUID COMMENT Interpretation--------NormalSt. Rita's HospitalComment on above: Result Comment: Reference values for this fluid type areundefined, as fluid accumulation isconsidered abnormal.Performed By: #### BFCT, FTP, FLWillis ####[facility] ([id number])[address], [address], [place] [address]VHVHI CLARITYHAZYNormalProMedica Ward HospitalComment on above:Performed By: #### BAYRON WHATLEY, FLWillis ####[facility] ([id number])[address], [place] [address]ZDQMA COLORYELLOWNormalProMedica Ward HospitalComment on above:Performed By: #### BAYRON WHATLEY, FLWillis ####[facility] ([id number])[address], [address], [place] [address]IZGCV MKNYUSTGTF63 %Normal [facility] HospitalComment on above:Performed By: #### BAYRON WHATLEY, FLWillis ####[facility] ([id number])[address], [address], [place] [address]HHPRQ MESOTHELIAL8 %NormalProMedica Ward HospitalComment on above: Performed By: #### BAYRON WHATLEY, SONYA ####[facility] ([id number])[address], [address], [place] [address]XJDXB CROTDPHNIEW83 %Normal [facility] HospitalComment on above:Performed By: #### BAYRON WHATLYE, FLWillis ####[facility] ([id number])[address], [address], [place] [address]WCSZE RBC CT123 /uLNormalProMedica Ward HospitalComment on above: Performed By: #### BAYRON WHATLEY, FLWillis ####[facility] ([id number])[address], [address], [place] [address]LYCYD SPECIMEN TYPEPLEURAL FLUIDNormalProMedica Ward HospitalComment on above:Result Comment: LEFT Performed By: #### BAYRON WHATLEY, FLWillis ####[facility] ([id number])[address], [address] [place] [address] 040[address]SMNKBYWJQNJ97 %Normal [facility] HospitalComment on above:Performed By: #### BAYRON WHATLEY, FLD ####[facility] ([id number])[address], [address] [place] [address]YVXLXWTFJ CELL CD4308 /uLNormalProMedica Paynesville HospitalComment on above: Performed By: #### BAYRON WHATLEY, FLD ####[facility] ([id number])[address], [address] [place] [address] 208[address]HLG AND AUTO DIFFon 46-38-6899NQUBXQUQ BASOPHIL0.0 X10E9/LNormal0.0-0.2[facility] Comment on above:Performed By: #### 2777-1, CBCA, PINR, CMP, ####[facility] ([id number])[address], [address] [place] [address] ABSOLUTE NEUTROPHIL9.0 X10E9/LHigh1.5-6.6ProRegional Medical Centerca Paynesville HospitalComment on above:Performed By: #### 2777-1, CBCA, PINR, CMP, ####[facility] ([id number])[address], [address] [place] [address]Rovowryqj/100 WBC (Bld)0.3 %NormalProCommunity Memorial Hospital HospitalComment on above:Performed By: #### 2777-1, CBCA, PINR, CMP, ####[facility] ([id number])[address], [address] [place] [address]Gxkwmmgnvgq (Bld) [#/Vol] 0.0 10*3/uLNormal0.0-0.4Pro[facility] HospitalComment on above:Performed By: #### 2777-1, CBCA, PINR, CMP, ####[facility] ([id number])[address] [address] [place] [address]Xoswgjgmtkw/100 WBC (Bld) 0.3 %NormalProCommunity Memorial Hospital HospitalComment on above:Performed By: #### 2777-1, CBCA, PINR, CMP, ####[facility] ([id number])[address] [address] [place] [address]65[address]Czgxanrjjtk distribution width (RBC) [Ratio] 16.7 %High11.5-15.0ProCommunity [facility] Hospital HospitalComment on above:Performed By: #### 2777-1, CBCA, PINR, CMP, ####[facility] ([id number])[address] [address] [place] [address]Zptbshyrkk (Bld) [Volume fraction]22.3 %Myf02-00HdhRzzkzl [place] HospitalComment on above:Performed By: #### 2777-1, CBCA, PINR, CMP, ####[facility] ([id number])[address] [address]Lbgqjbqnvt (Bld) [Mass/Vol] 7.2 g/dLLow13.0-17.0ProCommunity [facility] Hospital HospitalComment on above:Performed By: #### 2777-1, CBCA, PINR, CMP, ####[facility] ([id number])[address] [address]Wooxaskpsgz (Bld) [#/Vol] 1.3 10*3/uLNormal1.0-3.5Pro[facility] HospitalComment on above:Performed By: #### 2777-1, CBCA, PINR, CMP, ####[facility] ([id number])[address], [place] [address]Gytboaosrdv/100 WBC (Bld) 11.7 %NormalProMedica Ward HospitalComment on above:Performed By: #### 2777-1, CBCA, PINR, CMP, ####[facility] ([id number])[address], [address] [place] [address]ICX (RBC) [Entitic mass]31.8 uqTjknmo60-86 [facility] HospitalComment on above:Performed By: #### 2777-1, CBCA, PINR, CMP, 13822-7 ####[facility] ([id number])[address], [address] [place] [address]BGUJ (RBC) [Mass/Vol]32.5 g/eQPyhnso11-19TorDqxshs Ward HospitalComment on above:Performed By: #### 2777-1, CBCA, PINR, CMP, ####[facility] ([id number])[address], [address] [place] [address]VPA (RBC) [Entitic vol]98 lPXxcosn81-668SjyEabqjz Ward HospitalComment on above:Performed By: #### 2777-1, CBCA, PINR, CMP, ####[facility] ([id number])[address], [address] [place] [address]Mgkvcriix (Bld) [#/Vol]1.0 10*3/uLHigh0-0.9Pro[facility]ica [facility] HospitalComment on above: Performed By: #### 2777-1, CBCA, PINR, CMP, 71793-4 ####[facility] ([id number])[address], [address], [place] [address]Uctvbgzms/100 WBC (Bld)8.6 %NormalProMedica Ward HospitalComment on above:Performed By: #### 2777-1, CBCA, PINR, CMP, ####[facility] ([id number])[address], [address] [place] [address] 37398Nrxnpjjccdl/100 WBC (Bld) 79.1 %NormalProCommunity Memorial Hospital HospitalComment on above:Performed By: #### 2777-1, CBCA, PINR, CMP, ####[facility] ([id number])[address], [address] [place] [address] 41226Bloucksr mean volume (Bld) [Entitic vol]10.3 fLNormal7-12[facility] HospitalComment on above:Performed By: #### 2777-1, CBCA, PINR, CMP, ####[facility] ([id number])[address], [address] [place] [address]20Wbgenjkxz (Bld) [#/Vol]120 10*3/lCAif671-787 [facility] HospitalComment on above:Performed By: #### 2777-1, CBCA, PINR, CMP, ####[facility] ([id number])[address], [address] [place] [address] 15119VRX COUNT2.28 X10E12/LLow4.10-5.70[facility] Hospital Comment on above:Performed By: #### 2777-1, CBCA, PINR, CMP, ####[facility] ([id number])[address], [address] [place] [address] 75522ONA (Bld) [#/Vol]11.4 10*3/uLHigh4.0-11.0[facility] HospitalComment on above: Performed By: #### 2777-1, CBCA, PINR, CMP, ####[facility] ([id number])[address], [address] [place] [address] 43662FPX auto differential on 97-89-1762Hertqbwdf (Bld) [#/Vol]0.0 10*3/[facility] Basophils/100 WBC (Bld)0.3 %[facility] CenterEosinophils (Bld) [#/Vol]0.0 10*3/uLOhioHealth Grant Medical CenterEosinophils/100 WBC (Bld)0.3 %[facility] CenterErythrocyte distribution width (RBC) [Ratio]16.7 %High11.5 - 15.0 % [facility] CenterHematocrit (Bld) [Volume fraction]22.3 %Low39 - 49 % [facility] CenterHemoglobin (Bld) [Mass/Vol]7.2 g/dLLow13.0 - 17.0 g/dL [facility] CenterInterpretation and review of laboratory resultsAbnormal [facility] CenterLymphocytes (Bld) [#/Vol]1.3 10*3/uLOhioHealth Grant Medical CenterLymphocytes/100 WBC (Bld)11.7 %[facility] CenterMCH (RBC) [Entitic mass]31.8 pg27 - 34 [facility]MCHC (RBC) [Mass/Vol]32.5 g/dL32 - 36 g/dLOhioHealth Grant Medical CenterMCV (RBC) [Entitic vol]98 fL80 - 100 [facility] CenterMonocytes (Bld) [#/Vol]1.0 10*3/[facility]LDominion [facility] Monocytes/100 WBC (Bld)8.6 %[facility] CenterNeutrophils (Bld) [#/Vol]9.0 10*3/uLDominion HospitalNeutrophils/100 WBC (Bld)79.1 %[facility] CenterPlatelet mean volume (Bld) [Entitic vol]10.3 fL7 - 12 [facility] CenterPlatelets (Bld) [#/Vol]120 10*3/uLOhioHealth Nelsonville Health CenterRBC (Bld) [#/Vol]2.28 10*6/uLOhioHealth Nelsonville Health CenterWBC corrected for nucl RBC Auto (Bld) [#/Vol]11.4HighSelect Medical Specialty Hospital - [facility] Health SystemProMedica Health System COMPREHENSIVE METABOLIC PANELon 65-56-1138Zwpspxg [Mass/Vol]4.0 g/dLNormal 3.2-5.3PPeoples Hospital HospitalComment on above:Performed By: #### 2777-1, CBCA, PINR, CMP, 94003-1 ####[facility] ([id number])[address], [address], [place] [address]JTW [Catalytic activity/Vol]55 U/LNormal 39-130[facility] Memorial Hospital HospitalComment on above:Performed By: #### 2777-1, CBCA, PINR, CMP, ####[facility] ([id number])[address], [place] [address]GYV [Catalytic activity/Vol]8 U/LNormal0-40[facility] HospitalComment on above:Performed By: #### 2777-1, CBCA, PINR, CMP, ####[facility] ([id number])[address], [address], [place] [address]Jimsv gap [Moles/Vol]10 mmol/LNormal5-15[facility] HospitalComment on above:Performed By: #### 2777-1, CBCA, PINR, CMP, ####[facility] ([id number])[address], [address], [place] [address]OYZ [Catalytic activity/Vol]14 U/LNormal0-41[facility] Hospital Comment on above:Performed By: #### 2777-1, CBCA, PINR, CMP, ####[facility] ([id number])[address], [address], [place] [address] Bilirubin [Mass/Vol]0.6 mg/dLNormal0.3-1.2PPeoples Hospital HospitalComment on above:Performed By: #### 2777-1, CBCA, PINR, CMP, ####[facility] ([id number])[address] [address], [place] [address]Awvktvw [Mass/Vol]9.4 mg/dLNormal8.5-10.5ProMedC[facility] Hospital HospitalComment on above: Performed By: #### 2777-1, CBCA, PINR, CMP, ####[facility] ([id number])[address], [address], [place] [address]Jlpbtlwu [Moles/Vol]97 mmol/RGle36-203EgpLqtcrn [place] HospitalComment on above:Performed By: #### 2777-1, CBCA, PINR, CMP, ####[facility] ([id number])[address] [address], [place] [address]UF8 [Moles/Vol]30 mmol/L Zmctfe30-49KemIkqkhj [place] HospitalComment on above:Performed By: #### 2777-1, CBCA, PINR, CMP, ####[facility] ([id number])[address] [address], [place] [address]Joogrzlgyk [Mass/Vol]2.54 mg/dLHigh0.60-1.30 [facility] HospitalComment on above:Result Comment: METHOD TRACEABLE TO IDAL STANDARDPerformed By: #### 2777-1, CBCA, PINR, CMP, ####[facility] ([id number])[address] [address] [address] GFR/1.73 sq M.predicted among non-blacks MDRD (S/P/Bld) [Vol rate/Area]26 mL/min/{1.73_m2}Low>59ProMediKing's Daughters Medical Center [facility] HospitalComment on above:Result Comment: Reported eGFR is based on theCKD-EPI 2020 equation that doesnot use a race coefficient.Performed By: #### 2777-1, CBCA, PINR, CMP, ####[facility] ([id number])[address], [address] [address] Glucose [Mass/Vol]130 mg/tTLugg09-27DkgYplkvy [place] HospitalComment on above: Performed By: #### 2777-1, CBCA, PINR, CMP, ####[facility] ([id number])[address], [address], [place] [address]Zotffmtwi [Moles/Vol] 3.9 mmol/LNormal3.5-5.0[facility] HospitalComment on above:Performed By: #### 2777-1, CBCA, PINR, CMP, ####[facility] ([id number])[address], [address], [place] [address]Kmgnstw [Mass/Vol]6.8 g/dL Normal6.0-8.0[facility] HospitalComment on above:Performed By: #### 2777- 1, CBCA, PINR, CMP, ####[facility] ([id number])[address], [address], [place] [address]Frbsub [Moles/Vol]137 mmol/YOdbvyw793-732 [facility] HospitalComment on above:Performed By: #### 2777-1, CBCA, PINR, CMP, ####[facility] ([id number])[address], [address], [place] [address]Lznt nitrogen [Mass/Vol]22 mg/dLNormal5-27[facility] HospitalComment on above:Performed By: #### 2777-1, CBCA, PINR, CMP, ####[facility] ([id number])[address], [address]TOSELECT [facility] [place], [place] [address]Idpjvjnewyiwc metabolic panelon 82-53-2375Mcntejn [Mass/Vol]4.0 g/dL3.2 - 5.3 g/dLProRmc [facility] Health SystemALP [Catalytic activity/Vol]55 U/L39 - 130 U/L [facility] SystemALT No additional P-5'-P [Catalytic activity/Vol]8 U/L0 - 40 U/LProMedica Health SystemAnion gap [Moles/Vol]10 mmol/L5 - 15 mmol/L ProMwiregrass medical center Health SystemAST [Catalytic activity/Vol]14 U/L0 - 41 U/LProMedbaptist medical center east Health SystemBilirubin [Mass/Vol]0.6 mg/dL0.3 - 1.2 mg/dLProUniversity Hospitals Health System System Calcium [Mass/Vol]9.4 mg/dL8.5 - 10.5 mg/dLProUniversity Hospitals Health System SystemChloride [Moles/Vol]97 mmol/LLow98 - 109 mmol/LPrWest Springs Hospital Health SystemCO2 [Moles/Vol]30 mmol/L22 - 32 mmol/[facility] SystemCreatinine [Mass/Vol]2.54 mg/dLHigh 0.60 - 1.30 mg/dLSelect [facility] SystemeGFR (CKD-EPI)non-race yfeqfjvwv20Tno- PINFPFisher-Titus Medical Center SystemGlucose [Mass/Vol]130 mg/gWGnyy36 - 99 mg/dLSelect [facility] SystemInterpretation and review of laboratory resultsAbDannemora State Hospital for the Criminally InsanePotassium [Moles/Vol]3.9 mmol/L3.5 - 5.0 mmol/LProMedica Health SystemProtein [Mass/Vol]6.8 g/dL6.0 - 8.0 g/dLSelect [facility] SystemSodium [Moles/Vol]137 mmol/L134 - 146 mmol/LProMedica Health SystemUrea nitrogen [Mass/Vol]22 mg/dL5 - 27 mg/dLSelect [facility] SystemCytologyon 10-07-2023 CytologyNoOhio State University Wexner Medical CenterComment on above:Result Comment: [facility] [address] [place] [address] Cytology ConsultationPatient Name:BRIAN MANDEL:1950 (Age: 73)Gender:MTaken:4Reported:10/12/2023 15:54Physician(s):SUMMER ZIMMERMAN ([phone])Copy To:April Melchor, [facility] Hospitalession #:[id number]. Rec. #:[id number]: #[id number] Cytologic DiagnosisLeft pleural effusion:No malignant cells identified.nsk/10/12/2023Interpretation performed at [facility], [facility], [place] [address],License number: [id number].Electronically Signed Out By Haleigh Alba MDClinical HistoryShock ([facility]) (R57.9)ThoracentesisGross DescriptionReceived was 550 mL of marc fluid unfixed labeled as Bisignano, left pleural effusion . CytoLyt added in lab. Specimen placed in formalin at 17:00 and had a total fixation time of 8 hours.Source of Specimen Left pleural effusion Cell block for Non-hitcher (M), Level 2 H&E, Non FINANCE CONSULTANT ThinPrepFee Code(s):1; 13344, 80244CNJWM CULTUREon 76-26-4935Kjzyljkm identified Aer cx Nom (Body fld) GRAM STAIN WHITE BLOOD CELLS PRESENT NO ORGANISMS SEEN ON CONCENTRATED SMEAR CULTURE RESULTS NO GROWTH 5 DAYSNormalProAkron Children'S HospitalComment on above:Performed By: #### 610-6 ####[facility] ([id number])[address] [facility], [address] [place] [address]USNKI LDHon 43-86-4439SYATY LDH60 U/LNormalProAkron Children'S HospitalComment on above:Result Comment: The reference interval and othermethod performance specifications areunavailable for this body fluid.Comparison of this result to serumor plasma is recommended.Performed By: #### BFCT, FTP, FLD ####[facility] ([id number])[address] [facility], [address] [place] [address]YU SPECIMEN TYPEPLEURAL FLUIDNormalProMedica Ward HospitalComment on above:Result Comment: LEFTPerformed By: #### BFLUKASZ FTP, FLD ####[facility] ([id number])[address], [address] [place] [address]HGEWN T. PROTEINon 86-05-0873ZQGPO TOT. PROTEIN3.4 g/dLLima Memorial Hospital Comment on above:Result Comment: The reference interval and othermethod performance specifications areunavailable for this body fluid.Comparison of this result to serumor plasma is recommended.Performed By: #### BFCT, FTP, FLWillis ####[facility] ([id number])[address], [address] [place] [address]JT SPECIMEN TYPEPLEURAL FLUIDLima Memorial HospitalComment on above:Result Comment: LEFTPerformed By: #### BFCT, FTP, FLD ####[facility] ([id number])[address], [address] [place] [address]ZELXTO CULTURE on 06-55-3552Rljkij identified Cx Nom (Unsp spec)FUNGAL SMEAR NO FUNGAL ELEMENTS SEEN ON CONCENTRATED SMEAR CULTURE RESULTS NO FUNGUS ISOLATED AFTER 4 WEEKSLima Memorial HospitalComment on above: Performed By: #### 580-1 ####[facility] ([id number])[address], [address] [address]Orwpxryf for thoracentesis of Cheston 03-37-7355TJBOGSANTZBmrQofnda Health SystemRadiology Study observation (narrative)[facility] SystemGuidance for thoracentesis of ChestOrdered By: Cami Andre on 05-47-1949FlwGvvedm Health System Work Phone: IR THORACENTESIS W GUIDE LTon 66-69-0518CV THORACENTESIS W GUIDE LTNoThe [facility] HospitalIonized magnesiumon 87-00-1253Kuaebdorr Ionized ISE (Bld) [Moles/Vol]0.75 mmol/LHigh0.45 - 0.74 mmol/LProMedica Health SystemLDHon 79-63-9220ACO [Catalytic activity/Vol]116 U/L 100 - 235 U/LProMedica Health SystemLDH [Catalytic activity/Vol]on 03-44-1380XJX 116 U/MItayfj089-498JdeJsonulSt. Rita's HospitalComment on above:Performed By: #### 2885-2, 2532-0 ####[facility] ([id number])[address] [facility], [address] [place] [address]VRQ, fluidon 97-73-5897AOQ Lactate to pyruvate reaction (Body fld) [Catalytic activity/Vol]60 U/LPrParkwood Hospital SystemSpecimen type Nom (Spec)PLEURAL FLUIDTorrance State HospitalMAGNESIUMon 63-57-4443Wymqxsuuo [Mass/Vol]1.8 mg/dLNormal1.8-2.6[facility] Comment on above:Performed By: #### 2777-1, CBCA, PINR, CMP, 62861-4 ####[facility] ([id number])[address] [facility], [address] [place] [address] Magnesiumon 57-39-6195Olbampkqi [Mass/Vol]1.8 mg/dL1.8 - 2.6 mg/dLOhioHealth Grant Medical CenterMagnesium Ionized ISE (Bld) [Moles/Vol]on 13-41-7087Zvzpazszuxnjgc and review of laboratory resultsAbnormalProValley Forge Medical Center & HospitalMagnesium [Moles/Vol]0.75 mmol/LHigh0.45-0.74[facility] Comment on above:Result Comment: NEW REFERENCE RANGEPerformed By: #### 07340-2 ####[facility] ([id number])[address] [facility], [address] [place] [address]Wi Panel Informationon 96-24-1236GwtTlcwgwAscension St. Michael Hospital SystemPHOSPHORUSon 32-59-1911Bctlummss [Mass/Vol]3.3 mg/dLNormal2.4-4.9ProAkron Children'S HospitalComment on above:Performed By: #### 2777-1, CBCA, PINR, CMP, 04208-4 ####[facility] ([id number])[address], [address] [place] [address]NPBTFYS AND INRon 95-01-5915WNH Coag (PPP) [Relative time]1.1 {INR}Normal0.8-1.1PMercy Health St. Anne HospitalComment on above:Performed By: #### 2777-1, CBCA, PINR, CMP, 05718-3 ####[facility] ([id number])[address], [address] [place] [address]JO Coag (PPP) [Time]12.8 s Normal9.8-13.2PMercy Health St. Anne HospitalComment on above:Performed By: #### 2777- 1, CBCA, PINR, CMP, 91024-5 ####[facility] ([id number])[address], [address] [place] [address]Zrdinkpejlep 75-94-8135Nppvuifco [Mass/Vol] 3.3 mg/dL2.4 - 4.9 mg/dLOhioHealth Grant Medical CenterProtein electrophoresis, serumon 08-04-3814Lovtsum [Mass/Vol]3.0 g/dLLow3.4 - 5.3 g/dLOhioHealth Grant Medical Center Alpha 1 globulin Elph [Mass/Vol]0.3 g/dL0.1 - 0.4 g/dLOhioHealth Grant Medical Center Alpha 2 globulin Elph [Mass/Vol]0.8 g/dL0.4 - 1.1 g/dLOhioHealth Grant Medical Center Beta globulin Elph [Mass/Vol]1.0 g/dL0.5 - 1.2 g/dLOhioHealth Grant Medical CenterGamma globulin Elph [Mass/Vol]1.2 g/dL0.5 - 1.6 g/dLSelect [facility] System Interpretation and review of laboratory resultsAbnormalOhioHealth Grant Medical Center Pathologist interpretation (Bld) [Interp]SEE SEPARATE REPORTSelect [facility] Specialty [facility], [facility] SystemProtein [Mass/Vol]6.3 g/dL6.0 - 8.0 g/dLProMoundview Memorial Hospital and Clinics SystemProtein, totalon 92-37-0971Pgkssam [Mass/Vol]6.8 g/dL6.0 - 8.0 g/dL OhioHealth Grant Medical CenterProtime & INRon 78-83-1750VXA Coag (PPP) [Relative time] 1.1 {INR}OhioHealth Grant Medical CenterPT Coag (PPP) [Time]12.8 sPrDoylestown HealthTOTAL PROTEINon 09-14-8677Qdlbxus [Mass/Vol]6.8 g/dLNormal6.0-8.0St. [facility] HospitalComment on above:Performed By: #### 2885-2, 2532-0 ####[facility] ([id number])[address], [address], [place] [address]Llxow protein, fluidon 89-15-9963Nwuvcxa (Body fld) [Mass/Vol]3.4 g/dLNovant Health New Hanover Regional Medical Centerpecimen type Nom (Spec)PLEURAL FLUID Torrance State HospitalCBC AND AUTO DIFFon 10-06-2023 ABSOLUTE BASOPHIL0.1 X10E9/LNormal0.0-0.2PMercy Health St. Anne HospitalComment on above:Performed By: #### 2157-6, 16179-2, CMP, CBCA, PINR, 2777-1 ####[facility] ([id number])[address] [address] ABSOLUTE CSFLXIQFSM10.9 X10E9/LHigh1.5-6.6St. Rita's HospitalComment on above:Performed By: #### 2157-6, 41619-0, CMP, CBCA, PINR, 2777-1 ####[facility] ([id number])[address], [address] [address] Basophils/100 WBC (Bld)0.6 %NormalProRegional Medical Centerca Ward HospitalComment on above: Performed By: #### 2156-, , CMP, CBCA, PINR, 277-1 ####[facility] ([id number])[address], [address] [place] [address]Wdhsfaabgnj (Bld) [#/Vol]0.0 10*3/uLNormal0.0-0.4St. Rita's HospitalComment on above: Performed By: #### 2156-, , CMP, CBCA, PINR, 277-1 ####[facility] ([id number])[address], [address] [place] [address] Eosinophils/100 WBC (Bld)0.0 %NormalSt. Rita's HospitalComment on above: Performed By: #### 2156-07, , CMP, CBCA, PINR, 277-1 ####[facility] ([id number])[address], [address] [place] [address]Mkwqpyxrkyi distribution width (RBC) [Ratio]16.7 %High11.5-15.0[facility] Comment on above:Performed By: #### 2156-07, , CMP, CBCA, PINR, 2777-1 ####[facility] ([id number])[address], [address] [place] [address]Adkehrnbbl (Bld) [Volume fraction]25.8 %Qfy35-22DtkQfjumzSt. Rita's Hospital Comment on above:Performed By: #### 2156-07, , CMP, CBCA, PINR, 277-1 ####[facility] ([id number])[address] [address] [place] [address]Xnctapkpiy (Bld) [Mass/Vol]8.8 g/dLLow13.0-17.0[facility] Comment on above:Performed By: #### 2156-07, , CMP, CBCA, PINR, 277-1 ####[facility] ([id number])[address], [address] [place] [address]Rkynavvucak (Bld) [#/Vol]0.7 10*3/uLLow1.0-3.5PThe NeuroMedical Centerica [facility] Comment on above:Performed By: #### 2156-, , CMP, CBCA, PINR, 277- ####[facility] ([id number])[address], [address], [place] [address]Gukojiymltv/100 WBC (Bld)4.0 %NormalProCommunity Memorial Hospital HospitalComment on above:Performed By: #### 2156-07, , CMP, CBCA, PINR, 2776- ####[facility] ([id number])[address], [address] [place] [address]FDX (RBC) [Entitic mass]33.3 ulIjkger20-02FgnWmetju [place] HospitalComment on above: Performed By: #### 2156-07, , CMP, CBCA, PINR, 277- ####[facility] ([id number])[address], [address] [place] [address]DSFE (RBC) [Mass/Vol]34.2 g/yOWyorno85-14FozMffnaa [place] HospitalComment on above: Performed By: #### 2156-07, , CMP, CBCA, PINR, 2777-1 ####[facility] ([id number])[address], [address] [place] [address]PJH (RBC) [Entitic vol]97 lARwphrc85-015PwcVqilsm [place] HospitalComment on above: Performed By: #### 2156-07, , CMP, CBCA, PINR, 2777- ####[facility] ([id number])[address], [address], [place] [address]Bofgqniel (Bld) [#/Vol]0.8 10*3/uLNormal0-0.9ProMedica Ward HospitalComment on above: Performed By: #### 2156-, , CMP, CBCA, PINR, 277- ####[facility] ([id number])[address], [address], [place] [address]Aninmgcpo/100 WBC (Bld)4.8 %NormalProMedica Ward HospitalComment on above:Performed By: #### 2156-, , CMP, CBCA, PINR, 2776- ####[facility] ([id number])[address], [address], [place] [address]Lofckkjxpxx/100 WBC (Bld) 90.6 %NormalProMedica Ward HospitalComment on above:Performed By: #### 2156-, , CMP, CBCA, PINR, 2776- ####[facility] ([id number])[address], [address] [place] [address]Whznvdbl mean volume (Bld) [Entitic vol]10.9 fLNormal7-12ProMedica Ward HospitalComment on above: Performed By: #### 2156-6, , CMP, CBCA, PINR, 277- ####[facility] ([id number])[address], [address] [place] [address]Zexxqgbmy (Bld) [#/Vol]184 10*3/eXTqrplw436-939LecKmlabr Ward HospitalComment on above: Performed By: #### 2156-, , CMP, CBCA, PINR, 2777-1 ####[facility] ([id number])[address], [address] [place] [address] 27197WMJ COUNT2.65 X10E12/LLow4.10-5.70St. Rita's HospitalComment on above:Performed By: #### 2157-6, 96938-0, CMP, CBCA, PINR, 2777-1 ####[facility] ([id number])[address], [address] [place] [address]SUP (Bld) [#/Vol]16.5 10*3/uLHigh4.0-11.0St. Rita's HospitalComment on above:Performed By: #### 2157-6, 98987-1, CMP, CBCA, PINR, 2777-1 ####[facility] ([id number])[address], [address] [place] [address] 289[address]NFH auto differentialon 44-64-3371Dzmxvbhdj (Bld) [#/Vol]0.1 10*3/uLOhioHealth Grant Medical CenterBasophils/100 WBC (Bld)0.6 %[facility] Grant Medical CenterEosinophils (Bld) [#/Vol]0.0 10*3/uL [facility] Medical CenterEosinophils/100 WBC (Bld)0.0 %[facility] Erythrocyte distribution width (RBC) [Ratio]16.7 %High11.5 - 15.0 %[facility] Grant Medical CenterHematocrit (Bld) [Volume fraction]25.8 %Low39 - 49 %[facility] Grant Medical CenterHemoglobin (Bld) [Mass/Vol]8.8 g/dLLow13.0 - 17.0 g/dLOhioHealth Grant Medical CenterInterpretation and review of laboratory resultsAbnormalOhioHealth Grant Medical CenterLymphocytes (Bld) [#/Vol]0.7 10*3/uLLowOhioHealth Grant Medical Center Lymphocytes/100 WBC (Bld)4.0 %[facility] Grant Medical CenterMCH (RBC) [Entitic mass] 33.3 pg27 - 34 [facility] HospitalMCHC (RBC) [Mass/Vol]34.2 g/dL32 - 36 g/dLOhioHealth Grant Medical CenterMCV (RBC) [Entitic vol]97 fL80 - 100 [facility] CenterMonocytes (Bld) [#/Vol]0.8 10*3/[facility] Monocytes/100 WBC (Bld)4.8 %[facility] Grant Medical CenterNeutrophils (Bld) [#/Vol]14.9 10*3/uLHighOhioHealth Grant Medical CenterNeutrophils/100 WBC (Bld)90.6 %[facility] Grant Medical CenterPlatelet mean volume (Bld) [Entitic vol]10.9 fL7 - 12 [facility] SystemPlatelets (Bld) [#/Vol]184 10*3/uLOhioHealth Grant Medical CenterRBC (Bld) [#/Vol]2.65 10*6/[facility] HospitalWBC corrected for nucl RBC Auto (Bld) [#/Vol]16.5HighPenn State Health Holy Spirit Medical Center Totalon 59-08-5038YL [Catalytic activity/Vol]19 U/LLow24 - 195 U/[facility] [Catalytic activity/Vol]on 62-58-5575Fabtswwynvhozu and review of laboratory resultsAbnoKensington HospitalCPK19 U/KKaa92-909IssGayrhnSt. Rita's HospitalComment on above:Performed By: #### 2157-6, 56896-0, CMP, CBCA, PINR, 2777-1 ####[facility] ([id number])[address] [facility], [address] [place] [address] 51974XAVLNXSINTYFO METABOLIC PANELon 47-13-1149Wjqbkvg [Mass/Vol]3.3 g/dLNormal3.2-5.3PMercy Health St. [facility] Comment on above:Performed By: #### 2157-6, 14454-6, CMP, CBCA, PINR, 2777-1 ####[facility] ([id number])[address] [facility], [address] [place] [address] 829[address]VDR [Catalytic activity/Vol]69 U/BNsxfpf00-136AjgJkujcy [facility] Comment on above:Performed By: #### 2156-6, , CMP, CBCA, PINR, 2776-1 ####[facility] ([id number])[address], [place] [address]SQU [Catalytic activity/Vol]9 U/LNormal0-40ProCommunity [facility] HospitalComment on above:Performed By: #### 2156-, , CMP, CBCA, PINR, 277- ####[facility] ([id number])[address], [place] [address]Akowe gap [Moles/Vol]12 mmol/LNormal5-15Pro[facility] HospitalComment on above: Performed By: #### 2156-07, , CMP, CBCA, PINR, 2776- ####[facility] ([id number])[address], [address], [place] [address]QKS [Catalytic activity/Vol]14 U/LNormal0-41Pro[facility] HospitalComment on above: Performed By: #### 2156-07, , CMP, CBCA, PINR, 277- ####[facility] ([id number])[address], [address], [place] [address]Vtexpxizc [Mass/Vol]0.4 mg/dLNormal0.3-1.2ProMedCherrington Hospital HospitalComment on above: Performed By: #### 6, , CMP, CBCA, PINR, 2777-1 ####[facility] ([id number])[address], [place] [address]Itxzxhi [Mass/Vol]9.0 mg/dLNormal8.5-10.5PPeoples Hospital HospitalComment on above: Performed By: #### 2156-07, , CMP, CBCA, PINR, 2777- ####[facility] ([id number])[address], [address], [place] [address]Cazsoetm [Moles/Vol]95 mmol/ZWgk70-659OkxUbspgeAkron Children'S HospitalComment on above:Performed By: #### 2156-6, , CMP, CBCA, PINR, 2776-1 ####[facility] ([id number])[address], [address], [place] [address]AM1 [Moles/Vol]28 mmol/VXhifwt51-99BniXpkaaw [place] HospitalComment on above:Performed By: #### 2156-, , CMP, CBCA, PINR, 2771 ####[facility] ([id number])[address], [place] [address]Vylrmtslua [Mass/Vol]3.66 mg/dLHigh0.60-1.30ProAkron Children'S HospitalComment on above:Result Comment: METHOD TRACEABLE TO IDMS STANDARDPerformed By: #### 2156-07, , CMP, CBCA, PINR, 27708-21 ####[facility] ([id number])[address], [place] [address]SGZ/1.73 sq M.predicted among non-blacks MDRD (S/P/Bld) [Vol rate/Area]17 mL/min/{1.73_m2}Low>59Pro[facility] HospitalComment on above: Result Comment: Reported eGFR is based on theCKD-EPI 2020 equation that doesnot use a race coefficient.Performed By: #### 2156-6, , CMP, CBCA, PINR, 277- ####[facility] ([id number])[address], [address], [place] [address]Hxqfoyg [Mass/Vol]186 mg/eVUsmd91-70QadEaiegv [place] [facility] Comment on above:Performed By: #### 2156-6, , CMP, CBCA, PINR, 2777-1 ####[facility] ([id number])[address], [place] [address]Ettezfedj [Moles/Vol]3.8 mmol/LNormal3.5-5.0[facility] Comment on above:Performed By: #### 2156-6, 15198-2, CMP, CBCA, PINR, 277-1 ####[facility] ([id number])[address], [address], [place] [address]Rznzbbt [Mass/Vol]6.9 g/dLNormal6.0-8.0ProAkron Children'S HospitalComment on above:Performed By: #### 2156-6, , CMP, CBCA, PINR, 2777-1 ####[facility] ([id number])[address], [address] [address] Sodium [Moles/Vol]135 mmol/JRxzrdq919-590ZniRfdsbc [place] HospitalComment on above:Performed By: #### 2156-6, , CMP, CBCA, PINR, 2777-1 ####[facility] ([id number])[address], [address] [place] [address]Wtnw nitrogen [Mass/Vol]28 mg/dLHigh5-27ProAkron Children'S HospitalComment on above: Performed By: #### 2156-6, 06510-8, CMP, CBCA, PINR, 2777-1 ####[facility] ([id number])[address], [address] [place] [address]Umzjnwtk Pathology Reviewon 22-55-7593FAGJCWNikEbpuoq Health SystemComprehensive metabolic panelon 42-48-3384Cempzuz [Mass/Vol]3.3 g/dL3.2 - 5.3 g/dLOhioHealth Grant Medical CenterALP [Catalytic activity/Vol]69 U/L39 - 130 U/[place] [facility] SystemALT No additional P-5'-P [Catalytic activity/Vol]9 U/L0 - 40 U/[facility] SystemAnion gap [Moles/Vol]12 mmol/L5 - 15 mmol/[facility] AST [Catalytic activity/Vol]14 U/L0 - 41 U/[facility] HospitalBilirubin [Mass/Vol]0.4 mg/dL0.3 - 1.2 mg/dLOhioHealth Grant Medical CenterCalcium [Mass/Vol]9.0 mg/dL8.5 - 10.5 mg/dLOhioHealth Grant Medical CenterChloride [Moles/Vol]95 mmol/LLow98 - 109 mmol/[facility] HospitalCO2 [Moles/Vol]28 mmol/L22 - 32 mmol/L [facility] CenterCreatinine [Mass/Vol]3.66 mg/dLHigh0.60 - 1.30 mg/dL [facility] Medical CentereGFR (CKD-EPI)non-race eqwlcgsav04Cfr- PINCarondelet HealthGlucose [Mass/Vol]186 mg/vRXved56 - 99 mg/dLOhioHealth Grant Medical Center Interpretation and review of laboratory resultsAbnormProtestant Hospital Potassium [Moles/Vol]3.8 mmol/L3.5 - 5.0 mmol/[facility] SystemProtein [Mass/Vol]6.9 g/dL6.0 - 8.0 g/dLNovant Health New Hanover Regional Medical Centerodium [Moles/Vol]135 mmol/L134 - 146 mmol/[facility] HospitalUrea nitrogen [Mass/Vol]28 mg/dL High5 - 27 mg/dLOhioHealth Grant Medical CenterFree light chainson 10-06-2023 Immunoglobulin light chains.kappa.free (S) [Mass/Vol]10.72 mg/dLHigh0.33 - 1.94 mg/dLOhioHealth Grant Medical CenterImmunoglobulin light chains.kappa.free/Immunoglobulin light chains.lambda (S) [Mass ratio]1.600.26 - 1.65OhioHealth Grant Medical CenterImmunoglobulin light chains.lambda [Mass/Vol]6.70 mg/dLHigh0.57 - 2.63 mg/dLOhioHealth Grant Medical CenterInterpretation and review of laboratory resultsAbStamford HospitalValley Forge Medical Center & HospitalGlucose Glucometer (BldC) [Mass/Vol]on 97-31-1114Qwgqqmm [Mass/Vol]139 mg/oIDekr23 - 99 mg/dLOhioHealth Grant Medical CenterInterpretation and review of laboratory results AbnormalTorrance State HospitalGlucose [Mass/Vol]139 mg/aYEnyz84-84LjaWytfxkSt. Rita's HospitalHemodialysis inpatienton 10-06-2023 [facility] HospitalIonized magnesiumon 10-06-2023 Magnesium Ionized ISE (Bld) [Moles/Vol]0.51 mmol/L0.45 - 0.74 mmol/LProMedOhioHealth Grant Medical CenterMAGNESIUMon 71-63-6251Syhancuur [Mass/Vol]1.9 mg/dLNormal1.8-2.6 [address] Rita's HospitalComment on above:Performed By: #### 2157-6, 46437-9, CMP, CBCA, PINR, 2777-1 ####[facility] ([id number])[address] [facility], [address] [place] [address]Yskozzbozps 65-38-6051Cekidqfpd [Mass/Vol] 1.9 mg/dL1.8 - 2.6 mg/dLOhioHealth Grant Medical CenterMagnesium Ionized ISE (Bld) [Moles/Vol]on 08-12-3166TqzFbpwasAdena Fayette Medical CenterMagnesium [Moles/Vol]0.51 mmol/L Normal0.45-0.74St. Rita's HospitalComment on above:Result Comment: NEW REFERENCE RANGEPerformed By: #### 59933-1 ####[facility] ([id number])[address] [place] [address], [address] [place] [address]Or Panel Informationon 03-44-4311FpyPufbevAdena Fayette Medical CenterPHOSPHORUSon 93-56-1828Lsqkcmpsu [Mass/Vol]4.5 mg/dLNormal2.4-4.9St. Rita's HospitalComment on above:Performed By: #### 2157-6, 63333-7, CMP, CBCA, PINR, 2777-1 ####[facility] ([id number])[address], [address], [place] [address]AQHYKMMCBay 10-06-2023 Potassium [Moles/Vol]4.2 mmol/LNormal3.5-5.0St. Rita's HospitalComment on above:Performed By: #### 2823-3 ####[facility] ([id number])[address], [address], [place] [address]AVGLCEU AND INRon 29-77-6781EGQ Coag (PPP) [Relative time]1.0 {INR}Normal0.8-1.1PMercy Health St. Anne HospitalComment on above:Performed By: #### 2157-6, 88511-8, CMP, CBCA, PINR, 2777-1 ####[facility] ([id number])[address], [address], [place] [address]UE Coag (PPP) [Time]11.8 sNormal9.8-13.2PMercy Health St. Anne HospitalComment on above:Performed By: #### 2157-6, 46512-8, CMP, CBCA, PINR, 2777-1 ####[facility] ([id number])[address], [address], [place] [address]Ujiiljjlgivh 69-22-2602Vbceqsjvq [Mass/Vol]4.5 mg/dL2.4 - 4.9 mg/dLProRmc Stringfellow Memorial Hospital Health SystemPotassiumon 77-70-7026Agthzujsd [Moles/Vol]4.2 mmol/L3.5 - 5.0 mmol/LProMedica Health SystemPotassium [Moles/Vol]on 10-06-2023 [facility] SystemProtime & INRon 08-20-2516OPS Coag (PPP) [Relative time] 1.0 {INR}[facility] Health SystemPT Coag (PPP) [Time]11.8 sProMedica Health SystemProMedica Health SystemXR CHEST 1 VWon 21-20-6987NP CHEST [address] Rita's HospitalXR Chest Single viewon 10-17-4967ARUVMGOWRWXzxHvujqq Health SystemRadiology Study observation (narrative)[facility] Medical CenterXR Chest Single viewOrdered By: Ricardo Serra on 16-53-1235ZebWxwdomAdena Fayette Medical Center Work Phone: ANA Screen w/ Reflexon 68-34-0371Oougtrb Ab IA Ql (S) NegativeNegative^NegativeOhioHealth Grant Medical CenterBLOOD CULTUREon 10-05-2023 Bacteria identified Aer cx Nom (Bld)CULTURE RESULTS NO GROWTH 5 DAYSNoOhio State University Wexner Medical CenterBacteria identified Aer cx Nom (Bld)CULTURE RESULTS NO GROWTH 5 DAYSLima Memorial HospitalC3 complementon 10-05-2023 Complement C3 [Mass/Vol]136 mg/dL86 - 184 mg/dLOhioHealth Grant Medical CenterC4 complementon 40-98-3213Ypdrgfuqji C4 [Mass/Vol]35 mg/dL16 - 47 mg/dLOhioHealth Grant Medical CenterCBC AND AUTO DIFFon 74-77-5377BKOFJOQY BASOPHIL0.0 X10E9/LNormal 0.0-0.2PMercy Health St. Anne HospitalComment on above:Performed By: #### 57218-1, CBCA, 2777-1, PINR, 5196-1, 96549-3, CMP, 08679-1, 33927-2, 95957-2 ####[facility] ([id number])[address], [address] [address] ABSOLUTE NEUTROPHIL7.1 X10E9/LHigh1.5-6.6St. Rita's HospitalComment on above:Performed By: #### 00020-6, CBCA, 2777-1, PINR, 5196-1, 36832-9, CMP, 20694-8, 68980-3, 85449-5 ####[facility] ([id number])[address], [address], [place] [address]Wygywjqxu/100 WBC (Bld)0.4 %NormalProAkron Children'S HospitalComment on above:Performed By: #### 69438-5, CBCA, 2777-1, PINR, 5196-1, 62635-2, CMP, 17737-1, 29709-6, 92613-9 ####[facility] ([id number])[address], [address], [place] [address]Kmtptybpwhk (Bld) [#/Vol] 0.0 10*3/uLNormal0.0-0.4ProAkron Children'S HospitalComment on above:Performed By: #### 32522-9, CBCA, 2777-1, PINR, 5196-1, 83795-5, CMP, 43922-3, 23974-0, 62562- 1 ####[facility] ([id number])[address], [address], [place] [address]Cvjbcjtqmnn/100 WBC (Bld)0.1 %NormalProAkron Children'S HospitalComment on above:Performed By: #### 98903-2, CBCA, 2777-1, PINR, 5196-1, 82248-6, CMP, 15578-7, 83115-1, 97193-7 ####[facility] ([id number])[address], [address], [place] [address]Juplimcebns distribution width (RBC) [Ratio] 17.2 %High11.5-15.0ProAkron Children'S HospitalComment on above:Performed By: #### 33704-3, CBCA, 2777-1, PINR, 5196-1, 70684-5, CMP, 54379-2, 67734-5, 71040-9 ####[facility] ([id number])[address], [address], [place] [address]Iirgvahhdr (Bld) [Volume fraction]25.8 %Hks53-28QbvBizochSt. Rita's Hospital Comment on above:Performed By: #### 81958-6, CBCA, 2777-1, PINR, 5196-1, 38192- 0, CMP, 19408-8, 36649-6, 52587-9 ####[facility] ([id number])[address], [address], [place] [address]Ewhmhfdulz (Bld) [Mass/Vol] 8.6 g/dLLow13.0-17.0ProAkron Children'S HospitalComment on above:Performed By: #### 47775-1, CBCA, 2777-1, PINR, 5196-1, 71761-7, CMP, 18345-8, 28278-2, 58733-9 ####[facility] ([id number])[address], [address], [place] [address]Dxqhkwpppxv (Bld) [#/Vol]0.6 10*3/uLLow1.0-3.5PMercy Health St. Anne Hospital Comment on above:Performed By: #### 42503-2, CBCA, 2777-1, PINR, 5196-1, 30284- 0, CMP, 07059-6, 18676-3, 36903-4 ####[facility] ([id number])[address], [address], [place] [address]Mccvxmtwjvd/100 WBC (Bld) 7.3 %NormalProAkron Children'S HospitalComment on above:Performed By: #### 06084-7, CBCA, 2777-1, PINR, 5196-1, 64351-7, CMP, 05494-0, 73212-1, 59380-5 ####[facility] ([id number])[address], [address], [place] [address]TRY (RBC) [Entitic mass]32.8 heXqhjtv33-89ZttKiaqom [place] HospitalComment on above: Performed By: #### 62329-4, CBCA, 2777-1, PINR, 5196-1, 84172-8, CMP, 83808-8, 33101-3, 04954-8 ####[facility] ([id number])[address], [address], [place] [address]QSOA (RBC) [Mass/Vol]33.2 g/yQUyjrzb45-23XpkWodvno [place] HospitalComment on above:Performed By: #### 49956-1, CBCA, 2777-1, PINR, 5196-1, 20703-7, CMP, 98445-3, 85208-4, 28108-1 ####[facility] ([id number])[address], [address], [place] [address]DPM (RBC) [Entitic vol]99 dZCmdfmt40-642WwhCezofu [place] HospitalComment on above:Performed By: #### 95197-5, CBCA, 2777-1, PINR, 5196-1, 58640-8, CMP, 53926-7, 36980-7, 51078-4 ####[facility] ([id number])[address], [address], [place] [address]Faryzdmmk (Bld) [#/Vol]0.1 10*3/uLNormal0-0.9[facility] Comment on above:Performed By: #### 58969-9, CBCA, 2777-1, PINR, 5196-1, 12419- 0, CMP, 74141-8, 05889-6, 23124-4 ####[facility] ([id number])[address], [address], [place] [address]Uvzmwghkw/100 WBC (Bld)1.7 %NormalProAkron Children'S HospitalComment on above:Performed By: #### 08841-0, CBCA, 2777-1, PINR, 5196-1, 44577-1, CMP, 85687-7, 49884-3, 10725-6 ####[facility] ([id number])[address], [address] [address] Neutrophils/100 WBC (Bld)90.5 %NormalProCommunity Memorial Hospital HospitalComment on above: Performed By: #### 13978-1, CBCA, 2777-1, PINR, 5196-1, 33132-4, CMP, 31237-9, 71926-3, 98989-1 ####[facility] ([id number])[address], [address], [place] [address]Pwadnyxn mean volume (Bld) [Entitic vol]10.6 fLNormal 7-12ProMedica Paynesville HospitalComment on above:Performed By: #### 05263-6, CBCA, 2777-1, PINR, 5196-1, 26874-1, CMP, 94665-2, 79826-2, 84005-9 ####[facility] ([id number])[address], [address] [place] [address] Platelets (Bld) [#/Vol]163 10*3/uWSlffwd157-469IybExkjak [place] HospitalComment on above:Performed By: #### 98727-4, CBCA, 2777-1, PINR, 5196-1, 56779-4, CMP, 95678-3, 56798-4, 18598-0 ####[facility] ([id number])[address], [address] [place] [address]FLI COUNT2.60 X10E12/LLow4.10-5.70ProCommunity Memorial Hospital HospitalComment on above:Performed By: #### 83909-5, CBCA, 2777-1, PINR, 5196-1, 69342-2, CMP, 88551-7, 88163-2, 57589-0 ####[facility] ([id number])[address], [address] [place] [address]CIH (Bld) [#/Vol]7.8 10*3/uLNormal4.0-11.0ProCommunity Memorial Hospital HospitalComment on above:Performed By: #### 90367-8, CBCA, 2777-1, PINR, 5196-1, 04825-1, CMP, 19321-0, 23694-0, 16440- 1 ####[facility] ([id number])[address] [facility], [address], [place] [address]NVN auto differentialon 20-72-2051Elngctvbl (Bld) [#/Vol]0.0 10*3/uL [facility] SystemBasophils/100 WBC (Bld)0.4 %[facility] Eosinophils (Bld) [#/Vol]0.0 10*3/uLProMedica Health SystemEosinophils/100 WBC (Bld)0.1 %[facility] SystemErythrocyte distribution width (RBC) [Ratio] 17.2 %High11.5 - 15.0 %[facility] Health SystemHematocrit (Bld) [Volume fraction] 25.8 %Low39 - 49 %[facility] Health SystemHemoglobin (Bld) [Mass/Vol]8.6 g/dLLow 13.0 - 17.0 g/dLSelect Medical Specialty Hospital - Akron Health SystemInterpretation and review of laboratory resultsAbnormalProMedica Health SystemLymphocytes (Bld) [#/Vol]0.6 10*3/uLLow [facility] SystemLymphocytes/100 WBC (Bld)7.3 %[facility] Hospitala [facility] SystemMCH (RBC) [Entitic mass]32.8 pg27 - 34 pgPAdena Fayette Medical CenterMCHC (RBC) [Mass/Vol]33.2 g/dL32 - 36 g/dLSelect Medical Specialty Hospital - Boardman, Inc SystemMCV (RBC) [Entitic vol]99 fL80 - 100 fLPFisher-Titus Medical Center SystemMonocytes (Bld) [#/Vol]0.1 10*3/uLProMedica Health SystemMonocytes/100 WBC (Bld)1.7 %[facility] Health SystemNeutrophils (Bld) [#/Vol]7.1 10*3/uLHighProMedims Health SystemNeutrophils/100 WBC (Bld)90.5 %[facility] SystemPlatelet mean volume (Bld) [Entitic vol]10.6 fL7 - 12 [facility] CenterPlatelets (Bld) [#/Vol]163 10*3/uLSelect Medical Specialty Hospital - Boardman, Inc SystemRBC (Bld) [#/Vol]2.60 10*6/uLOhioHealth Nelsonville Health CenterWBC corrected for nucl RBC Auto (Bld) [#/Vol]7.8[facility] COMPREHENSIVE METABOLIC PANELon 30-54-5784Dkavzzf [Mass/Vol]3.2 g/dLNormal 3.2-5.3PPeoples Hospital HospitalComment on above:Performed By: #### 14688-4, CBCA, 2777-1, PINR, 5196-1, 33864-3, CMP, 57171-8, 97100-2, 15833-4 ####[facility] ([id number])[address], [address], [place] [address]UEN [Catalytic activity/Vol]67 U/JBenxms61-043CupMutqlkSt. Rita's HospitalComment on above:Performed By: #### 72241-2, CBCA, 2777-1, PINR, 5196-1, 15862-2, CMP, 26433-8, 85624-0, 59015-4 ####[facility] ([id number])[address], [address], [place] [address]YLG [Catalytic activity/Vol]8 U/LNormal0-40 [facility] HospitalComment on above:Performed By: #### 55253-2, CBCA, 2777-1, PINR, 5196-1, 36021-2, CMP, 92960-7, 17007-1, 25551-0 ####[facility] ([id number])[address], [address], [place] [address]Bvmow gap [Moles/Vol]17 mmol/LHigh5-15ProCommunity Memorial Hospital HospitalComment on above: Performed By: #### 49573-7, CBCA, 2777-1, PINR, 5196-1, 21206-1, CMP, 84530-0, 84361-3, 93109-0 ####[facility] ([id number])[address], [address], [place] [address]YCI [Catalytic activity/Vol]13 U/LNormal0-41Pro[facility]nesville HospitalComment on above:Performed By: #### 13569-8, CBCA, 2777-1, PINR, 5196-1, 09038-3, CMP, 69311-4, 11424-9, 26705-0 ####[facility] ([id number])[address] [facility], [address], [place] [address]Itucvixjy [Mass/Vol]0.3 mg/dLNormal0.3-1.2ProMedCherrington Hospital HospitalComment on above:Performed By: #### 88987-0, CBCA, 2777-1, PINR, 5196-1, 37917-8, CMP, 19685-0, 17005-5, 51201-5 ####[facility] ([id number])[address] [facility], [address], [place] [address]Ccvqkbk [Mass/Vol]8.4 mg/dLLow8.5-10.5ProMedCherrington Hospital HospitalComment on above:Performed By: #### 16480-1, CBCA, 2777-1, PINR, 5196-1, 96757-7, CMP, 08631-3, 14752-8, 17732-6 ####[facility] ([id number])[address], [address], [place] [address]Ocpmzsdk [Moles/Vol]99 mmol/MPvwviw44-034 [facility] HospitalComment on above:Performed By: #### 20205-4, CBCA, 2777-1, PINR, 5196-1, 64793-4, CMP, 44866-4, 38646-9, 49557-1 ####[facility] ([id number])[address], [address], [place] [address]XP9 [Moles/Vol]21 mmol/AMys98-74ZfiMsoeioMercy Health St. Anne HospitalComment on above:Performed By: #### 58170-2, CBCA, 2777-1, PINR, 5196-1, 33836-7, CMP, 79622-0, 65198-5, 05573-5 ####[facility] ([id number])[address], [address], [place] [address]Ufkyzaevwt [Mass/Vol]7.53 mg/dLHigh0.60-1.30ProAkron Children'S HospitalComment on above:Result Comment: METHOD TRACEABLE TO IDMS STANDARD Performed By: #### 42462-0, CBCA, 2777-1, PINR, 5196-1, 37517-1, CMP, 91152-3, 66473-3, 71246-3 ####[facility] ([id number])[address] [address], [place] [address]HSK/1.73 sq M.predicted among non-blacks MDRD (S/P/Bld) [Vol rate/Area]7 mL/min/{1.73_m2}Low>59ProAkron Children'S HospitalComment on above:Result Comment: Reported eGFR is based on theCKD-EPI 2020 equation that doesnot use a race coefficient.Performed By: #### 00722-2, CBCA, 2777-1, PINR, 5196-1, 61495-1, CMP, 45899-6, 79587-5, 67556-6 ####[facility] ([id number])[address], [address], [place] [address]Qvvjhhz [Mass/Vol]163 mg/dL Nuzi57-63YcyOrllosAkron Children'S HospitalComment on above:Performed By: #### 14633-1, CBCA, 2777-1, PINR, 5196-1, 69627-6, CMP, 95717-9, 13302-7, 35339-5 ####[facility] ([id number])[address], [address] [place] [address] Potassium [Moles/Vol]4.5 mmol/LNormal3.5-5.0ProAkron Children'S HospitalComment on above:Performed By: #### 32387-5, CBCA, 2777-1, PINR, 5196-1, 68006-8, CMP, 63805-2, 05456-7, 59832-1 ####[facility] ([id number])[address], [address], [place] [address]Oywpeww [Mass/Vol]6.8 g/dLNormal6.0-8.0 [facility] HospitalComment on above:Performed By: #### 84935-3, CBCA, 2777-1, PINR, 5196-1, 12054-2, CMP, 37973-6, 27685-7, 36726-2 ####[facility] ([id number])[address], [address] [place] [address] Sodium [Moles/Vol]137 mmol/LYuisnv465-187NhdTscnes [place] HospitalComment on above:Performed By: #### 00088-0, CBCA, 2777-1, PINR, 5196-1, 99208-7, CMP, 30971-0, 12167-9, 28111-3 ####[facility] ([id number])[address], [address], [place] [address]Vqvl nitrogen [Mass/Vol]60 mg/dLHigh5-27 [facility] HospitalComment on above:Performed By: #### 69805-0, CBCA, 2777-1, PINR, 5196-1, 45277-7, CMP, 69479-2, 88875-7, 61972-2 ####[facility] ([id number])[address] [place] [address] CREATININEon 99-27-7513Kjvmwaahcp [Mass/Vol]7.09 mg/dLHigh0.70-1.20[facility] HospitalComment on above:Result Comment: METHOD TRACEABLE TO IDMS STANDARDPerformed By: #### 94763-6, CRIMINAL DEFENSE ATTORNEY, PLTCT, 92930-7, HH, PINR ####[facility] ([id number])[address] [place] [address]OQL/1.73 sq M.predicted among non-blacks MDRD (S/P/Bld) [Vol rate/Area]7 mL/min/{1.73_m2}Low>59ProMethodist Hospital AtascosaComment on above:Result Comment: Reported eGFR is based on theCKD-EPI 2020 equation that doesnot use a race coefficient.Performed By: #### 35264-6, CRIMINAL DEFENSE ATTORNEY, PLTCT, 12665-5, HH, PINR ####[facility] ([id number])[address] [place] [address]DP ABDOMEN AND PELVIS WO CONTon 26-89-6778NR ABDOMEN AND PELVIS WO CONTNormalProMethodist Hospital AtascosaCT CHEST WO CONTon 30-64-4409RM CHEST WO CONTSelect Medical Specialty Hospital - CantonClinical Pathologyon 10-05-2023 Clinical PathologyNoOhio State University Wexner Medical CenterCompontiac general hospital on above:Result Comment: [facility] HospitalPlanet[facility] [address] [place] [address] Clinical Pathology ReportPatient Name:BRIAN MANDEL:1950 (Age: 73)Gender:MTaken:4Reported:4Physician(s):Sadaf Lloyd MD ([phone])Copy To: Rec. #:[id number]: #[id number] DiagnosisMonoclonal protein in gamma region, 0.3 g/dL.Mild hypoalbuminemia. Report Electronically Signed Outdf/15/2024Dsadie Sandoval MDInterpretation [place] [address], License number: [id number].Clinical OeawmqyK43.9, N17.9, I95.9.SERUM PROTEIN ELECTROPHORESISSAMPLE NO: [id number] FRACTION CONCENTRATIONS (g/dL) PATIENT REFERENCE RANGEAlbumin 3.0 L 3.4 - 5.3Alpha-1 globulin 0.3 0.1 - 0.4Alpha-2 globulin 0.8 0.4 - 1.1Beta globulin 1.0 0.5 - 1.2Gamma globulin 1.2 0.5 - 1.61 0.3Total protein 6.3 6.0 - 8.0(Electrophoretic gels and densitometric tracings on file in lab.)Specimen(s) Received Serum Protein ElectrophoresisFee Codes(s):1; 35148-11Gxtlaepwij C3 [Mass/Vol]on 13-33-1433IABYRILZAU C3136 mg/dL Aplkmx43-448IurCkzvwsAkron Children'S HospitalComment on above:Performed By: #### 47605- 9, 4485-9, 18954-3, SPE, 35410-4, 4498-2 ####[facility] ( [id number])[address] [place] [address]Mmpskdtezu C4 [Mass/Vol]on 65-72-4757OPFQRNDLNX C435 mg/vUWjpbud00-81AfoXzojzbSt. Rita's HospitalComment on above:Performed By: #### 88557-1, 4485-9, 14634-3, SPE, 78433-4, 4498-2 ####[facility] ([id number])[address] [place] [address], [address] [address]Pawqgsnoyoqoo metabolic panelon 81-60-7235Qivhsfh [Mass/Vol]3.2 g/dL3.2 - 5.3 g/dLProUniversity Hospitals Health System SystemALP [Catalytic activity/Vol]67 U/L39 - 130 U/L [facility] SystemALT No additional P-5'-P [Catalytic activity/Vol]8 U/L0 - 40 U/LPrWest Springs Hospital Health SystemAnion gap [Moles/Vol]17 mmol/LHigh5 - 15 mmol/L [facility] SystemAST [Catalytic activity/Vol]13 U/L0 - 41 U/LPrWest Springs Hospital Health SystemBilirubin [Mass/Vol]0.3 mg/dL0.3 - 1.2 mg/dLSelect [facility] System Calcium [Mass/Vol]8.4 mg/dLLow8.5 - 10.5 mg/dLSelect [facility] SystemChloride [Moles/Vol]99 mmol/L98 - 109 mmol/LPrWest Springs Hospital Health SystemCO2 [Moles/Vol]21 mmol/LLow22 - 32 mmol/[facility] SystemCreatinine [Mass/Vol]7.53 mg/dL High0.60 - 1.30 mg/dLOhioHealth Grant Medical CentereGFR (CKD-EPI)non-race bgtlehttw7Xws - PINFPFisher-Titus Medical [facility] SystemGlucose [Mass/Vol]163 mg/uAAgzm29 - 99 mg/dL [facility] SystemPotassium [Moles/Vol]4.5 mmol/L3.5 - 5.0 mmol/[facility] SystemProtein [Mass/Vol]6.8 g/dL6.0 - 8.0 g/dLSelect [facility] System Sodium [Moles/Vol]137 mmol/L134 - 146 mmol/[facility] SystemUrea nitrogen [Mass/Vol]60 mg/dLHigh5 - 27 mg/dLSelect [facility] SystemCreatinine (U) [Mass/Vol]on 03-25-0702BhoMomvquAdena Fayette Medical CenterURINE CREATININE,MAK132.94 mg/dL NormalSt. Rita's HospitalComment on above:Performed By: #### 2161-8 ####[facility] ([id number])[address] [place] [address], [address] [place] [address]Orcrtlbz Careon 73-79-8477TatPgydlfNew [facility] ECG 12 leadon 20-74-9923PUTGSWJXVFLNIYZwkXmgtso Health SystemFREE LIGHT CHAINSon 60-44-7798VLLA GEORGETTE/LAMBD RATIO1.44Vtygzb8.26-1.65[facility] Comment on above:Performed By: #### 59798-7, 4485-9, 25026-4, SPE, 26984-1, 4498-2 ####[facility] ([id number])[address], [place] [address]NEQA KAPPA LT MDJSAK77.72 mg/dLHigh0.33-1.94ProAkron Children'S HospitalComment on above:Performed By: #### 47367-7, 4485-9, 25806-8, SPE, 41212-2, 4498-2 ####[facility] ([id number])[address], [address] [place] [address] 30384XBKQ LAMBDA LT CHAINS6.70 mg/dLHigh0.57-2.63ProAkron Children'S HospitalComment on above:Performed By: #### 22377-0, 4485-9, 16513-0, SPE, 97344-1, 4498-2 ####[facility] ([id number])[address], [address] [place] [address]Oktjjqzcqe basement membrane IgG ABon 28-54-2253Saxwddqwqm basement membrane IgG Qn (S)[facility] Glomerular basement membrane IgG Qn (S)on 88-50-8336VxkJxbdug[address] [place], [place] [address]GBM IgG Ab<0.2Normal<1.0ProAkron Children'S HospitalComment on above:Performed By: #### 40805-4, 4485-9, 37891-8, SPE, 83842-1, 4498-2 ####[facility] ([id number])[address], [address] [place] [address]Vjrbawv Glucometer (BldC) [Mass/Vol]on 11-60-0714Nbrjdhp [Mass/Vol]152 mg/dIJrih22-48CmlSjgvjxAkron Children'S HospitalGuidance for infusion of non-thrombolytic of Vesselon 10-05-2023 SECTRAPACSOhioHealth Grant Medical CenterRadiology Study observation (narrative) [facility] SystemGuidance for infusion of non-thrombolytic of Vessel Ordered By: Neo Anne on 38-85-8879ExpJvrwsm[address] [place] [address] Work Phone: HBV core Ab [place] Qlon 13-57-4232DJVR HBcNegativeNormal NEGProAkron Children'S HospitalComment on above:Performed By: #### 5193-8, 04969-1 ####[facility] ([id number])[address] [facility], [address], [place] [address]LOP surface Ab [place] Qnon 13-50-9009Zjgq HBs quant.<8.00NormalSt. Rita's HospitalComment on above:Result Comment: Vaccinated: >=12mIU/mL, Positive (Immune)Unvaccinated: <8mIU/mL, Negative (Not Immune)8-11.99 mIU/mL: Indeterminate,(Considered Not Immune)Performed By: #### 5193-8, 79621-6 ####[facility] ([id number])[address] [facility], [address] [place], [place] [address]TCF surface Ag IA Qlon 22-69-0094IFOPOQYEH B SURF AGNegativeNormalNEG ProMbullock county hospitala Fulton County Health CenterComment on above:Performed By: #### 18821-3, CBCA, 2777-1, PINR, 5196-1, 77995-2, CMP, 77151-7, 68926-9, 86588-2 ####[facility] ([id number])[address] [facility], [address], [place] [address]KIV Ab IA Qlon 98-37-1346MFXB HCV W/PCR REFLXNon-ReactiveNormalNRCTProAkron Children'S HospitalComment on above:Result Comment: If recent infection suspected, recommendrepeat testing (>2 months).Fzoptz-sv-vbtzmj ratio is <0.80.Performed By: #### 33495-3, CBCA, 2777-1, PINR, 5196-1, 16057-1, CMP, 32711-8, 31985-5, 48036-0 ####[facility] ([id number])[address] [facility], [address], [place] [address]DIA AND HCTon 66-09-6829Fvbdboidoj (Bld) [Volume fraction] 24.5 %Fam02-79CooCuwofwMethodist Hospital AtascosaComment on above:Performed By: #### 29939-9, CRIMINAL DEFENSE ATTORNEY, PLTCT, 52433-8, HH, PINR ####[facility] ([id number])[address] [place] [address] 96957Nilxjmrqfz (Bld) [Mass/Vol]8.2 g/dLLow13.0-17.0Guernsey Memorial HospitalComment on above: Performed By: #### 51197-6, CRIMINAL DEFENSE ATTORNEY, PLTCT, 27377-7, HH, PINR ####[facility] ([id number])[address] [place] [address]67 Hemodialysis inpatienton 73-08-6951ZmjScahqxAdena Fayette Medical CenterProUniversity Hospitals Health System SystemHepatitis B Surface Antibody Quantitationon 14-92-6629PCK surface Ab IA Qn mIU/mLOhioHealth Grant Medical CenterHemiddlesboro arh hospitaltis B core antibody, totalon 44-10-5152IBL core Ab IA QlNegativeNegative^NegativeOhioHealth Grant Medical CenterHepatitis B surface antigenon 18-24-1783CYX surface Ag IA QlNegativeNegative^NegativeSelect Medical Specialty Hospital [facility], Inc SystemHemiddlesboro arh hospitaltis C(HCV) Ab w/ Reflex to PCRon 44-49-5025MWK Ab IA Ql Lvu-MdibpyzdRty-Odfygnbg^Non-ReactiveOhioHealth Grant Medical CenterIR CICV NON-TUNLD > 5YRSon 32-84-1443FD CICV NON-TUNLD > 5YRSNoOhio State University Wexner Medical CenterL. pneumophila Ag IA Ql (U)on 63-18-4811OvqMbqlyyAdena Fayette Medical CenterLEGIONELLA URINE AG on 10-05-2023L. pneumophila Ag IA Ql (U)LEGIONELLA URINE AG Negative (qualifier value) NEGATIVE FOR L.PNEUMOPHILA SEROGROUP 1 ANTIGENNoOhio State University Wexner Medical Center Comment on above:Performed By: #### 6447-7 ####[facility] ([id number])[address], [address] [place] [address] 85376Xmhuasn (P mayra) [Moles/Vol] on 45-46-1045WbgXfmzqw Health SystemLACTATE W/REFLEX1.8 mmol/LNormal0.4-2.[address] Rita's HospitalComment on above:Result Comment: Result did not trigger repeat Lactate,re-order if needed.Performed By: #### 19030-2, CBCA, 2777-1, PINR, 5196-1, 47830-8, CMP, 34902-7, 03073-9, 43799-5 ####[facility] ([id number])[address] [facility], [address] [place] [address] 44188Gixdxfq [Moles/Vol]2.1 mmol/LHigh0.4-2.0Guernsey Memorial HospitalComment on above: Performed By: #### 35907-5 ####[facility] ([id number])[address] [place] [address] 39870Djvhucu w/ Reflexon 32-18-6214Asfmquu (P mayra) [Moles/Vol]1.8 mmol/L0.4 - 2.0 mmol/LProMedica University [facility]als [facility] SystemLegionella antigen, urineon 10-05-2023L. pneumophila Ag IA Ql (U)NegativeNegative^Negative [facility] HospitaledicLake City Hospital and Clinic SystemLipid 1995 panelon 78-52-9160Qmrrbwpiszl [Mass/Vol]136 mg/dCZgk874 - 200 mg/dLProMedica Health SystemCholesterol in HDL [Mass/Vol]41 mg/dL39 - PINF mg/dLProMedica Health SystemCholesterol in LDL [Mass/Vol]78 mg/dL NINF - 130 mg/dLProMediLakeHealth TriPoint Medical Center SystemCholesterol in VLDL [Mass/Vol]17 mg/dL0 - 30 mg/dLProMediLakeHealth TriPoint Medical Center SystemCholesterol.total/Cholesterol in HDL [Mass ratio]3.3 {ratio}1.0 - 5.0ProUniversity Hospitals Health System SystemInterpretation and review of laboratory resultsAbnormalOhioHealth Grant Medical CenterTriglyceride [Mass/Vol]83 mg/dL 27 - 150 mg/dLOhioHealth Grant Medical CenterProAdams County Regional Medical CenterCholesterol [Mass/Vol]136 mg/wEHze815-736YmkQnyfjiSt. Rita's HospitalComment on above:Performed By: #### 47428-8, CBCA, 2777-1, PINR, 5196-1, 68414-8, CMP, 72540-7, 54608-7, 83827-6 ####[facility] ([id number])[address] [facility], [address] [place] [address] 87944Zxmvavbghxm in HDL [Mass/Vol]41 mg/dLNormal>39St. Rita's HospitalComment on above:Result Comment: HDL <40 mg/dL - High RiskHDL > or = 40mg/dL- DesirableHDL >60 mg/dL - Negative Risk Performed By: #### 51791-6, CBCA, 2777-1, PINR, 5196-1, 35164-0, CMP, 03579-2, 65327-6, 46110-4 ####[facility] ([id number])[address], [address] [place] [address] 33552 Cholesterol in LDL [Mass/Vol]78 mg/dLNormal<130ProAkron Children'S HospitalComment on above:Result Comment: LDL <100 mg/dL - DesirableLDL >160 mg/dL - High Risk Performed By: #### 23409-3, CBCA, 2777-1, PINR, 5196-1, 30871-8, CMP, 37844-1, 46793-3, 08585-6 ####[facility] ([id number])[address], [address], [place] [address] Cholesterol in VLDL [Mass/Vol]17 mg/dLNormal0-30ProAkron Children'S HospitalComment on above:Performed By: #### 80016-0, CBCA, 2777-1, PINR, 5196-1, 51856-9, CMP, 42492-8, 51699-6, 74516-1 ####[facility] ([id number])[address], [address], [place] [address]DVOGOWWEQYE:HDL3.4Noacxd5.0-5.0ProCommunity Memorial Hospital HospitalComment on above:Performed By: #### 37155-7, CBCA, 2777-1, PINR, 5196-1, 36159-5, CMP, 96037-5, 93643-4, 32959-6 ####[facility] ([id number])[address], [address], [place] [address]Vezosctjzteu [Mass/Vol]83 mg/vRTjztpi96-502HanXtjlsw Toledo HospitalComment on above:Performed By: #### 41101-0, CBCA, 2777-1, PINR, 5196-1, 43457-9, CMP, 59114-5, 81429-7, 79841-9 ####[facility] ([id number])[address], [address], [place] [address]AZNMQZQWRjf 75-25-7225Azdfiwrsg [Mass/Vol]1.7 mg/dLLow1.8-2.6ProAkron Children'S HospitalComment on above:Performed By: #### 31322-4, 4485-9, 14414-1, SPE, 69493-3, 4498-2 ####[facility] ([id number])[address], [address], [place] [address]Cvzcjwsav [Mass/Vol]1.8 mg/dLNormal1.8-2.6 [address] Rita's HospitalComment on above:Performed By: #### 65330-8, CBCA, 2777-1, PINR, 5196-1, 02945-3, CMP, 83534-3, 92516-2, 78659-6 ####[facility] ([id number])[address], [address] [place] [address] 32256LXZI DNA ARSENIO+probe Ql (Unsp spec)on 98-33-0777QsgFqriviAdena Fayette Medical CenterMRSA PCR NASALon 27-30-9913MKFM DNA ARSENIO+probe Ql (Unsp spec)NegativeNormalNEGSt. Rita's HospitalComment on above:Performed By: #### 29347-3 ####[facility] ([id number])[address], [address], [place] [address]Ojwnamlskve 10-05-2023 Magnesium [Mass/Vol]1.7 mg/dLLow1.8 - 2.6 mg/dLSelect Medical Specialty Hospital [facility], Inc SystemMagnesium [Mass/Vol]1.8 mg/dL1.8 - 2.6 mg/dLSelect Medical Specialty Hospital [facility], Inc SystemMagnesium [Mass/Vol]on 21-47-1328Jilwukuppispnt and review of laboratory resultsAbDannemora State Hospital for the Criminally InsaneMrsa Pcr nasal swabon 54-31-9625LZYK DNA ARSENIO+probe Ql (Unsp spec) NegativeNegative^NegativeOhioHealth Grant Medical CenterNo Panel Informationon 01-22-1289TsuVxjyca[address] [place] [address] System Interpretation and review of laboratory resultsAbMarshfield Medical Center/Hospital Eau ClaireNuclear Ab IA Ql (S)on 16-10-3583KnwUksfjc[address] [place] [address] LUIGI Screen w/reflexNegativeNormalNEGSt. Rita's HospitalCompontiac general hospital on above: Result Comment: Testing performed using multiplex flowimmunoassay. Eleven different antigensassociated with systemic autoimmunediseases (dsDNA,Sm,Sm/FIELD ASSISTANT,FIELD ASSISTANT,Chromatin,SSA,SSB,Jennie-1,Scl70,Ribo P,Centromere B)are included in this screening test.Performed By: #### 44028-0, 0635-9, 21071-6, SPE, 92319-7, 4498-2 ####[facility] ([id number])[address], [address], [place] [address]APYBIKLHLRds 19-31-5617Dyxidephv [Mass/Vol] 8.2 mg/dLHigh2.4-4.9ProAkron Children'S HospitalComment on above:Performed By: #### 63831-0, CBCA, 2777-1, PINR, 5196-1, 13815-3, CMP, 47458-2, 29953-3, 00927-7 ####[facility] ([id number])[address], [address], [place] [address]CDDPXHMN COUNT AND MPVon 92-96-8210Fyiniejf mean volume (Bld) [Entitic vol]10.8 fLNormal7-12PSt. Vincent HospitalComment on above:Performed By: #### 05862-8, CRIMINAL DEFENSE ATTORNEY, PLTCT, 53220-8, HH, PINR ####[facility] ([id number])[address] [place] [address] 17289Wpvdcyuxx (Bld) [#/Vol]135 10*3/dMUvb304-703MxhWtabcrMethodist Hospital AtascosaComment on above:Performed By: #### 95288-9, CRIMINAL DEFENSE ATTORNEY, PLTCT, 69439-6, HH, PINR ####[facility] ([id number])[address] [place] [address] 70368CBJWUIA CREAT RATIOon 08-75-8052NZDFFM URINE DINRTRG0908 mg/LHigh<120ProAkron Children'S Hospital Comment on above:Performed By: #### UPCR, UA ####[facility] ([id number])[address], [place] [address]Y/PRO/CRIMINAL DEFENSE ATTORNEY RATIO CALC2.58 High<0.2PMercy Health St. Anne HospitalComment on above:Result Comment: Nephrotic Syndrome is associated with ratios >3.5Performed By: #### UPCR, UA ####[facility] ([id number])[address], [address] [place] [address] 33304KFXCY CREATININE,XOG174.90 mg/dLNormalProMedica Fulton County Health CenterComment on above: Performed By: #### UPCR, UA ####[facility] ([id number])[address], [address] [place] [address] 82986GVKJSHU AND INRon 90-18-1910DXY Coag (PPP) [Relative time]1.0 {INR}Normal0.8-1.1PMercy Health St. Anne HospitalComment on above: Performed By: #### 38083-8, CBCA, 2777-1, PINR, 5196-1, 08006-2, CMP, 11815-8, 44815-3, 66001-4 ####[facility] ([id number])[address] [facility], [address] [address]JE Coag (PPP) [Time]11.7 sNormal9.8-13.2PMercy Health St. Anne HospitalComment on above:Performed By: #### 57667-2, CBCA, 2777-1, PINR, 5196-1, 57595-2, CMP, 09315-0, 42022-6, 88806-4 ####[facility] ([id number])[address], [address] [place] [address] 806[address]VSK Coag (PPP) [Relative time]1.1 {INR}Normal0.8-1.1PSt. Vincent HospitalComment on above:Performed By: #### 19918-6, CRIMINAL DEFENSE ATTORNEY, PLTCT, 33332-1, HH, PINR ####[facility] ([id number])[address] [place] [address], [place] [address]HE Coag (PPP) [Time]12.6 sNormal9.8-13.2PSt. Vincent HospitalComment on above:Result Comment: NEW REFERENCE RANGEPerformed By: #### 31228-1, CRIMINAL DEFENSE ATTORNEY, PLTCT, 89036-7, HH, PINR ####[facility] ([id number])[address] [place] [address] 25181Opyflqviyslj 96-06-7392Xhxrsxhdb [Mass/Vol]8.2 mg/dLHigh 2.4 - 4.9 mg/dLOhioHealth Grant Medical CenterProcalcitoninon 38-96-7933Aatxeaqqdkgmq IA [Mass/Vol]0.16 ng/mLHighNINF - 0.05 ng/mLOhioHealth Grant Medical CenterProcalcitonin IA [Mass/Vol]on 79-76-2213Ljcymsrwaedbpm and review of laboratory results AbnormalProValley Forge Medical Center & HospitalPROCALCITONIN0.16 ng/mL High<0.05St. Rita's HospitalComment on above:Result Comment: NOTE<0.50 ng/mL - Low risk of severe sepsis and/or septic shock.<2.00 ng/mL -Recommend retesting within 6-24 hours.>2.00 ng/mL - High risk of sepsis and/or septic shock.Performed By: #### 98103-1, CBCA, 2777-1, PINR, 5196-1, 35298-1, CMP, 71648-0, 57059-6, 52698-6 ####[facility] ([id number])[address] [facility], [address] [place] [address]Plyiyrt & INRon 61-70-9423XBE Coag (PPP) [Relative time]1.0 {INR}OhioHealth Grant Medical CenterPT Coag (PPP) [Time]11.7 s [facility] HospitalRESP PATHOGENS/CHUT-IlZ-6zh 60-03-4021Scqezetathd pathogens DNA and RNA panel ARSENIO+non-probe (Nph)Normal St. Rita's HospitalComment on above:Performed By: #### 08404-2 ####[facility] ([id number])[address] [facility], [address] [place] [address] 52553 Respiratory pathogens DNA and RNA panel ARSENIO+non-probe (Nph)on 10-05-2023 Adenovirus DNA ARSENIO+non-probe Ql (Nph)Not detectedNot Detected^Not Detected [facility] Medical CenterB. parapertussis AD3308 DNA ARSENIO+non-probe Ql (Nph)Not detectedNot Detected^Not DetectedOhioHealth Grant Medical CenterB. pertussis toxin promoter region ARSENIO+non-probe Ql (Nph)Not detectedNot Detected^Not Detected [facility] Medical CenterC. pneumoniae DNA ARSENIO+non-probe Ql (Nph)Not detectedNot Detected^Not DetectedOhioHealth Grant Medical CenterFLUAV RNA ARSENIO+non-probe Ql (Nph)Not detectedNot Detected^Not DetectedOhioHealth Grant Medical CenterFLUBV RNA ARSENIO+non-probe Ql (Nph)Not detectedNot Detected^Not DetectedOhioHealth Grant Medical CenterHCoV 229E RNA ARSENIO+non-probe Ql (Nph)Not detectedNot Detected^Not DetectedOhioHealth Grant Medical CenterHCoV HKU1 RNA ARSENIO+non-probe Ql (Nph)Not detectedNot Detected^Not Detected [facility] Medical CenterHCoV NL63 RNA ARSENIO+non-probe Ql (Nph)Not detectedNot Detected^Not DetectedOhioHealth Grant Medical CenterHCoV OC43 RNA ARSENIO+non-probe Ql (Nph) Not detectedNot Detected^Not DetectedOhioHealth Grant Medical CenterhMPV RNA ARSENIO+non- probe Ql (Nph)Not detectedNot Detected^Not DetectedOhioHealth Grant Medical CenterM. pneumoniae DNA ARSENIO+non-probe Ql (Nph)Not detectedNot Detected^Not Detected [facility] Medical CenterParainfluenza virus 1 RNA ARSENIO+non-probe Ql (Nph)Not detectedNot Detected^Not DetectedOhioHealth Grant Medical CenterParainfluenza virus 2 RNA ARSENIO+non-probe Ql (Nph)Not detectedNot Detected^Not DetectedOhioHealth Grant Medical CenterParainfluenza virus 3 RNA ARSENIO+non-probe Ql (Nph)Not detectedNot Detected^Not DetectedOhioHealth Grant Medical CenterParainfluenza virus 4 RNA ARSENIO+non- probe Ql (Nph)Not detectedNot Detected^Not DetectedOhioHealth Grant Medical Center Rhinovirus+Enterovirus RNA ARSENIO+non-probe Ql (Nph)Not detectedNot Detected^Not DetectedOhioHealth Grant Medical CenterRSV RNA ARSENIO+non-probe Ql (Nph)Not detectedNot Detected^Not DetectedNovant Health New Hanover Regional Medical CenterARS-CoV-2 (COVID-19) RNA ARSENIO+probe Ql (Resp)Not detectedNot Detected^Not DetectedNovant Health New Hanover Regional Medical Centerpecimen source Nom (Body fld)NASO PHARYNXProMedica Health SystemProRmc [facility] Health SystemS PNEUMONIAE AG Uon 10-05-2023S. pneumoniae Ag Ql (U)NegativeNormalNEGProCommunity Memorial Hospital HospitalComment on above:Performed By: #### 78313-6 ####[facility] ([id number])[address], [address], [place] [address] Pneumoniae AG, urineon 10-05-2023S. pneumoniae Ag Ql (U)NegativeNegative^NegativeProUniversity Hospitals Health System SystemS. pneumoniae Ag Ql (U)on 03-00-4723BfcWqeyduCritical access hospitalERUM PROTEIN ELECTROPHORESISon 26-84-7215Fouihgl [Mass/Vol]3.0 g/dLLow3.4-5.3 ProMCleveland Clinic Euclid Hospital HospitalComment on above:Performed By: #### 54189-9, 4485-9, 97257-4, SPE, 37303-7, 4498-2 ####[facility] ([id number])[address], [address] [place] [address] 06247MITVA 1 GLOBULIN0.3 g/dLNormal0.1-0.4 [facility] HospitalComment on above:Performed By: #### 38283-5, 4485-9, 98446-6, SPE, 78704-6, 4498-2 ####[facility] ([id number])[address], [address] [place] [address] 55229NJMHO 2 GLOBULIN0.8 g/dLNormal0.4-1.1 ProMCleveland Clinic Euclid Hospital HospitalComment on above:Performed By: #### 64355-8, 4485-9, 07039-8, SPE, 65032-1, 4498-2 ####[facility] ([id number])[address], [address] [place] [address] 42740ZRYS GLOBULIN1.0 g/dLNormal0.5-1.2PPeoples Hospital HospitalComment on above:Performed By: #### 56416-5, 4485-9, 89322-7, SPE, 24643-6, 4498-2 ####[facility] ([id number])[address], [address] [place] [address] 15543UNUEH GLOBULIN1.2 g/dLNormal0.5-1.6ProAkron Children'S HospitalComment on above:Performed By: #### 04477-6, 4485-9, 24757-1, SPE, 17736-2, 4498-2 ####[facility] ([id number])[address], [address] [place] [address] 75183OLAH. ELECTROPHORESIS INTERPSEE SEPARATE REPORTNormalProAkron Children'S HospitalComment on above:Performed By: #### 80155- 9, 4485-9, 28948-3, SPE, 29110-5, 4498-2 ####[facility] ( [id number])[address], [address] [place] [address] 43506Wjkwvqi [Mass/Vol]6.3 g/dL Normal6.0-8.0ProAkron Children'S HospitalComment on above:Performed By: #### 39012- 9, 4485-9, 60889-6, SPE, 01943-3, 4498-2 ####[facility] ( [id number])[address] [address]Dudqch (U) [Moles/Vol]on 43-08-5005ShgExzcnr Health SystemSodium, urine, randomon 81-90-9994Cxhdlk (U) [Moles/Vol]47 mmol/LProMedica Health SystemTroponin I.cardiac High sensitivity method [Mass/Vol]on 67-30-4640GYJPGCZQ I, HIGH SRUQFJYPVUL99 ng/LHigh<21 [facility] Memorial HospitalComment on above:Result Comment: Elevations of hs- Troponin may be due to causesother than myocardial ischemia.Recommend serial hs- Troponin testing be performed.For the initial evaluation and management of chestpain patients, refer to the algorithms linked below.Emergency Patient:[email or web address]?d [email or web address]&z=[email or web address]&uh=acaeaInpatient:[email or web address]? [email or web address]&uh=acaeaPerformed By: #### 87148-5, CRIMINAL DEFENSE ATTORNEY, PLTCT, 08333-1, HH, PINR ####[facility] ([id number])[address] [place] [address] 91639OQREUEFCBNam 56-28-0198Azffxdwrv Ql (U) NegativeNormalNEGProMedica Paynesville HospitalComment on above:Performed By: #### UPCR, UA ####[facility] ([id number])[address], [address] [place] [address] 11603YQJKR/HGBLargeAbnormalNEGProRegional Medical Centerca Paynesville HospitalComment on above:Performed By: #### UPCR, UA ####[facility] ([id number])[address], [address] [place] [address] 18047ID OXALATE CRYSTALSPRESENT AbnormalNONEProMedica Paynesville HospitalComment on above:Performed By: #### UPCR, UA ####[facility] ([id number])[address], [address] [place] [address] 24556Qnbck (U)YELLOWNormalYELLOWProMedica Paynesville HospitalComment on above: Performed By: #### UPCR, UA ####[facility] ([id number])[address], [address] [place] [address] 95980Imqyvso Ql (U)70 mg/dLAbnormalNEGProMedica Paynesville HospitalComment on above:Performed By: #### UPCR, UA ####[facility] ([id number])[address], [address] [place] [address] 61229Sdkfewz casts LM Ql (Urine sed)209 /lpfHigh0-2PPeoples Hospital HospitalComment on above: Performed By: #### UPCR, UA ####[facility] ([id number])[address], [address] [place] [address] 83370Pkhzgvm Ql (U)NegativeNormalNEGProRegional Medical Centerca Paynesville HospitalComment on above:Performed By: #### UPCR, UA ####[facility] ([id number])[address], [address] [place] [address] 57267Nbweuneip esterase Test strip Ql (U)LargeAbnormalNEGProCommunity Memorial Hospital HospitalComment on above:Performed By: #### UPCR, UA ####[facility] ([id number])[address], [address] [place] [address] 13633OYSBJUHDBNNQDBbeinqkgMLBP [facility] HospitalComment on above:Performed By: #### UPCR, UA ####[facility] ([id number])[address], [address] [place] [address] 15669 Nitrite Ql (U)NegativeNormalNEGProCommunity Memorial Hospital HospitalComment on above: Performed By: #### UPCR, UA ####[facility] ([id number])[address], [address] [place] [address] 42130oU (U)5.5 [pH]Normal5.0-8.5PPeoples Hospital HospitalComment on above:Performed By: #### UPCR, UA ####[facility] ([id number])[address], [address] [place] [address] 52450Qxrbrgs Ql (U) 600 mg/dLAbnormalNEGProCommunity Memorial Hospital HospitalComment on above:Performed By: #### UPCR, UA ####[facility] ([id number])[address], [address] [place] [address] 12613D.B.CGHWX404 /hpfHigh0-5ProMedCherrington Hospital HospitalComment on above:Performed By: #### HERNANDEZ, UA ####[facility] ([id number])[address], [address] [place] [address] 90793Spyyfrrj gravity (U) [Rel density]1.222Zsnmbd7.003-1.035ProMedica [facility]nesville HospitalComment on above: Performed By: #### UPTRICIA, UA ####[facility] ([id number])[address], [address] [place] [address] 91571PXACMRTT EPITHELIUM6 /hpfHigh0-5PPeoples Hospital HospitalComment on above:Performed By: #### HERNANDEZ, UA ####[facility] ([id number])[address], [address] [place] [id number] CLOUDYAbnormalCLEARPPeoples Hospital HospitalComment on above:Performed By: #### HERNANDEZ, UA ####[facility] ([id number])[address] [place] [address] 76355Fwykhntqflio (U) [Mass/Vol]mg/dLNormal<1.1PPeoples Hospital HospitalComment on above:Performed By: #### HERNANDEZ, UA ####[facility] ([id number])[address], [address] [place] [address] 75245T.B.DRMVJ345 /hpfHigh0-5PPeoples Hospital HospitalComment on above:Performed By: #### UPTRICIA, UA ####[facility] ([id number])[address], [address] [place] [address] 47952Dcffpbyvh Ql (U)NegativeNormalNEGProMedica Lagrange HospitalComment on above:Performed By: #### UA ####[facility] ([id number])[address] [place] [address], [place], [place] [address]KOYMS/HGBLargeAbnormalNEGProMedica Lagrange HospitalComment on above:Performed By: #### UA ####[facility] ([id number])[address] [place] [address], [place] [address]NY OXALATE CRYSTALSPRESENTAbnormalNONEProMedica Usc [facility] Norris Jr. Cancer HospitalComment on above: Performed By: #### UA ####[facility] ([id number])[address] [place] [address], [place] [address]Nxflb (U)YELLOWNormalYELLOWProRegional Medical Centerca Usc [facility] Norris Jr. Cancer HospitalComment on above:Performed By: #### UA ####[facility] ([id number])[address] [place] [address], [place] [address]Txcvuyr Ql (U) NegativeNormalNEGProMethodist Hospital AtascosaCompontiac general hospital on above:Performed By: #### UA ####[facility] ([id number])[address] [place] [address], [place] [address]IMQBOVOV CASTS2 /shhPwtd5WbvOwwdbnMethodist Hospital AtascosaComment on above:Performed By: #### UA ####[facility] ([id number])[address] [place] [address], [place] [address]Mvfjuoi Ql (U)TraceAbnormalNEG Pro[facility] Cancer HospitalComment on above:Performed By: #### UA ####[facility] ([id number])[address] [place] [address], [place] [address]Vcobgjomh esterase Test strip Ql (U)MODERATEAbnormalNEGProRegional Medical Centerca [facility]. Cancer HospitalComment on above:Performed By: #### UA ####[facility] ([id number])[address] [place] [address], [place] [address]Azlzfpc Ql (U) NegativeNormalNEGProMethodist Hospital AtascosaCompontiac general hospital on above:Performed By: #### UA ####[facility] ([id number])[address] [place] [address], [place] [address]pD (U)5.5 [pH]Normal5.0-8.5PSt. [facility] Comment on above:Performed By: #### UA ####[facility] ([id number])[address] [place] [address]Wvwlknw Ql (U) >300AbnormalNEGGuernsey Memorial HospitalComment on above:Performed By: #### UA ####[facility] HOSP[facility] ([id number])[address] [place] [address] 47151Q.B.CELLS26 /hpfHigh0-5PSt. Vincent HospitalComment on above:Performed By: #### UA ####[facility] ([id number])[address] [place] [address] 64969EWYOD EPITHELIUM2 /ugsXheg0FdjNiqdusGuernsey Memorial HospitalComment on above:Performed By: #### UA ####[facility] ([id number])[address] [place] [address] 24125Ikfkmyda gravity (U) [Rel density]>1.694Ekazsv8.003-1.035[facility] Comment on above:Performed By: #### UA ####[facility] ([id number])[address] [place] [address] 67078MQFSKSYT EPITHELIUM6 /hpfHigh0-5PSt. Vincent HospitalComment on above:Performed By: #### UA ####[facility] ([id number])[address] [place] [address] 53367RNAGDNMMCCPECGIMjotjjznLXDUPYqtNinwqa [facility] Comment on above:Performed By: #### UA ####[facility] ([id number])[address] [place] [address] 06747Qneepniicihj Qn (U)0.2 {Joan'U}/dLNormal<1.1PSt. Vincent HospitalComment on above: Performed By: #### UA ####[facility] ([id number])[address] [place], [place] [address]I.B.CELLS38 /hpfHigh0-5PSt. Vincent HospitalComment on above:Performed By: #### UA ####[facility] ([id number])[address] [place], [place] [address]RXSII CULTUREon 51-96-2352Cqvestir identified Cx Nom (U)SPECIMEN NOTES URINE RECEIVED WITHOUT PRESERVATIVE CULTURE RESULTS NO GROWTH AT <1000 CFU/mLNormalGuernsey Memorial HospitalComment on above: Performed By: #### 630-4 ####[facility] ([id number])[address], [place] [address]AVIUF SODIUM,RANDOMon 23-85-8498Zqtapn (U) [Moles/Vol]47 mmol/LNormalClinton Memorial Hospital HospitalComment on above:Performed By: #### 2955-3 ####[facility] ([id number])[address], [address], [place] [address]Kxqk nitrogen (U) [Mass/Vol]on 07-72-9621YwcCrizyg Health SystemProMedica Health SystemURINE UREA NITROGEN,HRENQS520 mg/dLNormal [facility]nes[facility] HospitalComment on above:Performed By: #### 3095-7 ####[facility] ([id number])[address], [address], [place] [address]RTTES UREA NITROGEN,ZTBGVY617 mg/dLNormalProMediKing's Daughters Medical Center Ohio HospitalComment on above: Performed By: #### 3095-7 ####[facility] ([id number])[address], [address], [place] [address]Wkxm random, urineon 54-82-4406Bljl nitrogen (U) [Mass/Vol]136 mg/dLProMedims Health SystemUrea nitrogen (U) [Mass/Vol]137 mg/dLSelect [facility] Specialty [facility], Inc SystemUrinalysison 76-56-8540Pjcyzqfge Ql (U)Negative Negative^NegativeOhioHealth Grant Medical CenterCalcium oxalate crystals LM Ql (Urine sed)PRESENTAbnormalNONE^NONESelect Medical Specialty Hospital [facility], Inc SystemColor (U)YELLOWYELLOW^YELLOW [facility] Medical CenterEpithelial cells Auto (Urine sed) [#/Area]6HighOhioHealth Grant Medical CenterGlucose (U) [Mass/Vol]70 mg/dLAbnormalNegative^NegativeOhioHealth Grant Medical CenterHemoglobin Auto test strip Ql (U)LargeAbnormalNegative^Negative [facility] Medical CenterHyaline casts (Urine sed) [#/Area]209 /[LPF]HighSelect Medical Specialty Hospital [facility], Inc SystemInterpretation and review of laboratory resultsAbnormalSelect Medical Specialty [facility], Inc SystemKetones (U) [Mass/Vol]NegativeNegative^Negative mg/dLOhioHealth Grant Medical CenterLeukocyte esterase Auto test strip Ql (U)LargeAbnormal Negative^NegativeOhioHealth Grant Medical CenterMucus Ql (Urine sed)PRESENTAbnormal NONE^NONEOhioHealth Grant Medical CenterNitrite Auto test strip Ql (U)Negative Negative^NegativeOhioHealth Grant Medical CenterpH (U)5.5 [pH]5.0 - 8.5PFisher-Titus Medical Center SystemProtein (U) [Mass/Vol]600 mg/dLAbnormalNegative^NegativeOhioHealth Grant Medical CenterRBC Auto (Urine sed) [#/Area]457UNC Health Chathampecific gravity Refractometry automated (U) [Rel density]1.0221.003 - 1.035OhioHealth Grant Medical CenterTurbidity Ql (U)CLOUDYAbnormalCLEAR^CLEAROhioHealth Grant Medical Center Urobilinogen Qn (U)NINCarondelet HealthWBC Auto (Urine sed) [#/Area]437 [facility] SystemUrine Creatinine,Rdmon 39-00-4122Swesmheujx (U) [Mass/Vol]208.94 mg/dLOhioHealth Grant Medical CenterUrine protein creatinine ratioon 64-54-0435Didynazloa (U) [Mass/Vol]210.90 mg/dL [facility] SystemInterpretation and review of laboratory resultsAbnormal [facility] SystemProtein (U) [Mass/Vol]5440 mg/LHighNINF - 120 mg/L [facility] Medical CenterProtein/Creatinine (U) [Ratio]2.58HighNINF - 0.2PAdena Fayette Medical CenterProAdams County Regional Medical CenterXR CHEST 1 VWon 46-20-8134CT CHEST 1 VW NormalProAkron Children'S HospitalXR Chest Single viewon 55-43-9459YQPROTQAHD [facility] Medical CenterRadiology Study observation (narrative)[facility] CenterXR Chest Single viewOrdered By: Soham Chatman on 39-96-0575FrqSmdnzuAdena Fayette Medical Center Work Phone: aPTT Coag (PPP) [Time]on 68-51-8446uRNJ Coag (Bld) [Time]32 xZhhulr59-67EbwPuteddGuernsey Memorial HospitalComment on above:Result Comment: NEW REFERENCE RANGEPerformed By: #### 74884-8, CRIMINAL DEFENSE ATTORNEY, PLTCT, 69090-3, HH, PINR ####[facility] ([id number])[address] [place] [address] 49802XTGEN CULTUREon 24-88-0794Qcdxikyw identified Aer cx Nom (Bld)CULTURE RESULTS NO GROWTH 5 DAYSNoKettering Health – Soin Medical CenterBacteria identified Aer cx Nom (Bld)CULTURE RESULTS NO GROWTH 5 DAYSNoKettering Health – Soin Medical CenterCBC AND AUTO DIFFon 10-04-2023 ABSOLUTE BASOPHIL0.1 X10E9/LNormal0.0-0.2PSt. Vincent HospitalComment on above:Performed By: #### 55387-2, CMP, 02101-9, 73328-7, CBCA, PINR, 14691-7, 91083-1 ####[facility] ([id number])[address] [place] [address] 29725YKDUUQVT NEUTROPHIL6.1 X10E9/LNormal1.5-6.6ProMethodist Hospital AtascosaComment on above:Performed By: #### 07765-5, CMP, 82415-4, 57490-4, CBCA, PINR, 30144-0, 07225-0 ####[facility] ([id number])[address] [place] [address] 46935Klsasdodj/100 WBC (Bld)1.5 %NormalGuernsey Memorial HospitalComment on above:Performed By: #### 48063-4, CMP, 14715-9, 61211-9, CBCA, PINR, 25526-8, 13804-7 ####[facility] ([id number])[address] [place] [address] 90440Jbamtlsxusm (Bld) [#/Vol]0.1 10*3/uLNormal0.0-0.4[facility] Comment on above:Performed By: #### 02077-0, CMP, 29440-5, 78977-2, CBCA, PINR, 01013-4, 53710-9 ####[facility] ([id number])[address] [place] [address] 35819Alttyoltgim/100 WBC (Bld)1.1 %Normal ProMLanterman Developmental CenterComment on above:Performed By: #### 81891-4, CMP, 69230-1, 27585-3, CBCA, PINR, 96801-9, 75496-8 ####[facility] ([id number])[address] [place] [address] 85928Jinqroykqzf distribution width (RBC) [Ratio]17.4 %High11.5-15.0[facility] Comment on above:Performed By: #### 51292-8, CMP, 97608-3, 22273-6, CBCA, PINR, 90292-2, 55088-4 ####[facility] ([id number])[address] [place] [address] 14748Pipeelwstj (Bld) [Volume fraction]26.6 %Low 39-49ProMethodist Hospital AtascosaComment on above:Performed By: #### 50056-2, CMP, 81487-5, 64403-0, CBCA, PINR, 81536-7, 96837-9 ####[facility] ([id number])[address] [place] [address] 54603Ekcvvfdsdw (Bld) [Mass/Vol]8.9 g/dLLow13.0-17.0ProMethodist Hospital AtascosaComment on above: Performed By: #### 12589-3, CMP, 47274-6, 56284-7, CBCA, PINR, 38041-7, 63478-1 ####[facility] ([id number])[address] [place] [address] 12496Afgpciiiwjt (Bld) [#/Vol]1.3 10*3/uLNormal1.0-3.5ProMedica [facility] Norris Jr. Cancer HospitalComment on above:Performed By: #### 47883-2, CMP, 92226-5, 98718-1, CBCA, PINR, 23219-8, 09102-5 ####[facility] ([id number])[address] [place] [address] 29289Keudvqcazur/100 WBC (Bld)15.4 %NormalProMethodist Hospital AtascosaComment on above:Performed By: #### 48248-9, CMP, 69545-2, 83799-9, CBCA, PINR, 56399-0, 59930-6 ####[facility] ([id number])[address] [place] [address] 53158LXI (RBC) [Entitic mass]33.2 qmWizcqo02-20WdcVulrlfMethodist Hospital AtascosaComment on above:Performed By: #### 33957-2, CMP, 60785-1, 07309-7, CBCA, PINR, 99955-9, 42726-5 ####[facility] ([id number])[address] [place] [address] 37183EAJL (RBC) [Mass/Vol]33.6 g/lLQscpkw03-37XliQkzjhdMethodist Hospital AtascosaComment on above:Performed By: #### 77892-6, CMP, 93277-6, 01119-2, CBCA, PINR, 27345-7, 63408-3 ####[facility] ([id number])[address] [place] [address] 62159KEB (RBC) [Entitic vol]99 fLNormal 80-100ProMethodist Hospital AtascosaComment on above:Performed By: #### 89596-4, CMP, 60000-7, 27729-1, CBCA, PINR, 90576-1, 03106-3 ####[facility] ([id number])[address] [place] [address] 92991 Monocytes (Bld) [#/Vol]0.7 10*3/uLNormal0-0.9[facility] HospitalComment on above:Performed By: #### 99094-3, CMP, 22269-3, 60981-9, CBCA, PINR, 18050-3, 31006-7 ####[facility] ([id number])[address] [place] [address] 78879Sjqiagvtq/100 WBC (Bld)8.4 %NormalProMethodist Hospital AtascosaComment on above:Performed By: #### 14323-3, CMP, 52071-6, 36974-2, CBCA, PINR, 94240-1, 94617-0 ####[facility] ([id number])[address] [place] [address] 57281Oohnfyhtqah/100 WBC (Bld)73.6 %Normal ProMLanterman Developmental CenterComment on above:Performed By: #### 87949-5, CMP, 51206-0, 48047-8, CBCA, PINR, 92102-3, 03950-0 ####[facility] ([id number])[address] [place] [address] 16066Uvfozxbp mean volume (Bld) [Entitic vol]10.4 fLNormal7-12PSt. Vincent HospitalComment on above:Performed By: #### 66729-7, CMP, 77612-6, 09724-2, CBCA, PINR, 11204-6, 75345-1 ####[facility] ([id number])[address] [place] [address] 94177Lnfikqcnz (Bld) [#/Vol]160 10*3/zYRkinbb231-734OatRfvlcg [facility] HospitalComment on above:Performed By: #### 50665-3, CMP, 44592-2, 38391-7, CBCA, PINR, 69641-7, 81867-9 ####[facility] ([id number])[address] [place] [address] 27879JUD COUNT2.69 X10E12/LLow4.10-5.70ProMethodist Hospital AtascosaComment on above:Performed By: #### 06723-9, CMP, 74113-9, 05938-9, CBCA, PINR, 37683-7, 82170-1 ####[facility] ([id number])[address] [place] [address] 34750WIT (Bld) [#/Vol]8.3 10*3/uLNormal4.0-11.0[facility] HospitalComment on above:Performed By: #### 85723-6, CMP, 17389-5, 79788-4, CBCA, PINR, 84446- 4, 38528-7 ####[facility] ([id number])[address] [place] [address] 19774HUVWGZWQEMARW METABOLIC PANELon 87-60-5535Kwnraic [Mass/Vol]3.2 g/dLNormal3.2-5.3PSt. Vincent HospitalComment on above: Performed By: #### 34818-2, CMP, 34105-4, 59803-8, CBCA, PINR, 83407-1, 65123-3 ####[facility] ([id number])[address] [place] [address] 52104GIJ [Catalytic activity/Vol]76 U/FClaqsp68-083XppYgtdzkMethodist Hospital AtascosaComment on above:Performed By: #### 89575-4, CMP, 11819-9, 59556-9, CBCA, PINR, 52202-7, 78613-9 ####[facility] ([id number])[address] [place] [address] 61893XXW [Catalytic activity/Vol]15 U/LNormal0-40ProMethodist Hospital AtascosaComment on above: Performed By: #### 10696-1, CMP, 46514-5, 84783-9, CBCA, PINR, 64262-2, 24752-7 ####[facility] ([id number])[address] [place] [address] 13813Gslqh gap [Moles/Vol]12 mmol/LNormal5-15ProMethodist Hospital AtascosaComment on above:Performed By: #### 22787-0, CMP, 85089-8, 94947-9, CBCA, PINR, 59201-9, 81537-9 ####[facility] ([id number])[address] [place] [address] 29201UID [Catalytic activity/Vol]21 U/L Normal0-41ProMethodist Hospital AtascosaComment on above:Performed By: #### 68803-9, CMP, 94385-0, 52227-5, CBCA, PINR, 01978-0, 16357-7 ####[facility] ([id number])[address] [place] [address] 91016 Bilirubin [Mass/Vol]0.6 mg/dLNormal0.3-1.2Pro[facility]. Cancer HospitalComment on above:Performed By: #### 82547-4, CMP, 53686-5, 55592-7, CBCA, PINR, 45814-2, 51333-7 ####[facility] ([id number])[address] [place] [address] 83346Pwidqdv [Mass/Vol]8.7 mg/dLNormal8.5-10.5PSt. Vincent HospitalComment on above:Performed By: #### 77772-5, CMP, 66764-0, 03938-1, CBCA, PINR, 17700-6, 24922-3 ####[facility] ([id number])[address] [place] [address], [place] [address]Oxdsdsqp [Moles/Vol]97 mmol/RMsn10-344 [facility] Cancer HospitalComment on above:Performed By: #### 65161-5, CMP, 37096-2, 73900-0, CBCA, PINR, 35544-6, 04935-4 ####[facility] ([id number])[address] [place] [address] 89942NC4 [Moles/Vol]25 mmol/MHrjjqo41-51VdeMqkjecSt. Vincent HospitalComment on above:Performed By: #### 59390-0, CMP, 14831-8, 03833-1, CBCA, PINR, 48645-2, 35410-9 ####[facility] ([id number])[address] [place] [address] 74521Fypqnujenn [Mass/Vol]6.90 mg/dLHigh0.70-1.20[facility] Comment on above:Result Comment: METHOD TRACEABLE TO IDMS STANDARDPerformed By: #### 00745-5, CMP, 04274-2, 89474-7, CBCA, PINR, 96628-3, 39612-1 ####[facility] ([id number])[address] [place] [address] 33302ORN/1.73 sq M.predicted among non-blacks MDRD (S/P/Bld) [Vol rate/Area]8 mL/min/{1.73_m2}Low>59ProMethodist Hospital AtascosaComment on above:Result Comment: Reported eGFR is based on theCKD-EPI 2020 equation that doesnot use a race coefficient.Performed By: #### 75454-7, CMP, 55523-5, 05961-9, CBCA, PINR, 14810-7, 78147-6 ####[facility] ([id number])[address] [place] [address] 24740Megdply [Mass/Vol]121 mg/yDQlnp86-03 [facility] HospitalComment on above:Performed By: #### 10944-0, CMP, 12598-1, 01699-8, CBCA, PINR, 29499-7, 65930-1 ####[facility] ([id number])[address] [place] [address] 60054Rfvflgjtv [Moles/Vol]4.1 mmol/LNormal3.5-5.0ProMethodist Hospital AtascosaComment on above: Performed By: #### 32379-3, CMP, 61377-9, 36274-9, CBCA, PINR, 33708-7, 57543-3 ####[facility] ([id number])[address] [place] [address] 35673Bjylxro [Mass/Vol]7.3 g/dLNormal6.0-8.0Gu[facility] HospitalComment on above:Performed By: #### 06292-6, CMP, 70529-7, 30689-0, CBCA, PINR, 35427-1, 53446-7 ####[facility] ([id number])[address] [place] [address] 41248Iauhwn [Moles/Vol]134 mmol/LNormal 134-146ProMethodist Hospital AtascosaComment on above:Performed By: #### 83648-8, CMP, 63075-2, 53641-9, CBCA, PINR, 11206-4, 30516-6 ####[facility] ([id number])[address] [place] [address] 60280Qsqb nitrogen [Mass/Vol]58 mg/dLHigh5-27ProMethodist Hospital AtascosaComment on above: Performed By: #### 61112-3, CMP, 77268-6, 96456-1, CBCA, PINR, 60412-5, 70878-4 ####[facility] ([id number])[address] [place] [address] 72303Xrdnlj D-dimer DDU (PPP) [Mass/Vol]on 10-04-2023 XRPDX888 ng/mL DDUHigh<255ProMethodist Hospital AtascosaComment on above:Result Comment: Results >=255ng/mL DDU: Results may beindicative of the presence of VTE. The useof the Wells score and further diagnostictests should be considered. Elevated D-Dimerlevels can alsobe associated with DIC,neoplasm, , trauma and liver disease.Elevated levels of rheumatoid factor may leadto an overestimation of the D-Dimer level.Performed By: #### 83090-2, [facility], 77967-9, 94031-8, CBCA, PINR, 47179-7, 33181-4 ####[facility] ([id number])[address] [place] [address] 32798Oussrfq (P mayra) [Moles/Vol]on 10-04-2023 LACTATE W/REFLEX2.7 mmol/LHigh0.4-2.0ProMethodist Hospital AtascosaComment on above: Performed By: #### 94272-9 ####[facility] ([id number])[address] [place] [address] 23140DSBDQCCDJlo 56-17-2176Bqulqvqau [Mass/Vol]1.3 mg/dLLow1.8-2.6ProMethodist Hospital AtascosaComment on above: Performed By: #### 29685-8, CMP, 01623-9, 15638-2, CBCA, PINR, 95431-6, 98155-1 ####[facility] ([id number])[address] [place] [address] 57354Xjycvsggeew peptide B [Mass/Vol]on 75-86-8284Sxspwcwttcf peptide B (Bld) [Mass/Vol]833 pg/mLHigh<100.0ProMethodist Hospital AtascosaComment on above:Performed By: #### 76943-7, CMP, 34421-6, 08670-1, CBCA, PINR, 77507-5, 53315-7 ####[facility] ([id number])[address] [place] [address] 25641GRAJYYZ AND INRon 42-70-1297ZZU Coag (PPP) [Relative time] 1.1 {INR}Normal0.8-1.1PSt. Vincent HospitalComment on above:Performed By: #### 33137-6, CMP, 36082-0, 62740-9, CBCA, PINR, 45702-6, 22248-8 ####[facility] ([id number])[address] [place] [address] 80029AG Coag (PPP) [Time]12.9 sNormal9.8-13.2PSt. Vincent HospitalComment on above:Result Comment: NEW REFERENCE RANGEPerformed By: #### 24475-0, CMP, 17643-1, 47748-8, CBCA, PINR, 37629-6, 87444-4 ####[facility] ([id number])[address] [place] [address] 39693WKIY/FLU A+B/RSV by NAAT/Molecularon 83-41-8339KGUC/FLU A+B/RSV by NAAT/MolecularNormalProMethodist Hospital AtascosaComment on above:Performed By: #### COVFLR ####[facility] ([id number])[address] [place] [address] 49834Dxqrswpx I.cardiac High sensitivity method [Mass/Vol]on HOUR TROP I, HIGH BWQZLOSNXGA13 ng/LHigh<21ProMethodist Hospital AtascosaCompontiac general hospital on above:Result Comment: Elevations of hs-Troponin may be due to causesother than myocardial ischemia.Recommend serial hs-Troponin testing be performed.For the initial evaluation and management of chestpain patients, refer to the algorithms linked below.Emergency Patient:[email or web address]://www.[employer]/dv/[email or web address]?d =[email or web address]&dh=1cc5a&d=43373&uh=acaeaInpatient:[email or web address]://www.[employer]/dv/[email or web address]? b=[email or web address]&dh=f72e7&m=34510&uh=acaeaPerformed By: #### 93109-2 ####[facility] ([id number])[address] [place] [address] 19585OPOADCPU I, HIGH HPEFVEJLVYE62 ng/LHigh<21ProMethodist Hospital AtascosaComment on above:Result Comment: Elevations of hs-Troponin may be due to causesother than myocardial ischemia.Recommend serial hs-Troponin testing be performed.For the initial evaluation and management of chestpain patients, refer to the algorithms linked below.Emergency Patient:[email or web address]://www.[employer]/dv/dl.aspx?d =6352816&dh=1cc5a&j=22497&uh=acaeaInpatient:[email or web address]://www.[employer]/dv/dl.aspx? q=1386307&dh=f72e7&c=68659&uh=acaeaPerformed By: #### 57243-9, CMP, 08320-8, 29872-4, CBCA, PINR, 27492-3, 83841-8 ####[facility] ([id number])[address] [place] [address] 24569rQRQ Coag (PPP) [Time]on 23-14-9533mWHX Coag (Bld) [Time]33 cQgppuh29-08XboUdxwatMethodist Hospital AtascosaComment on above:Result Comment: NEW REFERENCE RANGEPerformed By: #### 40361-6, CMP, 27377-9, 39667-9, CBCA, PINR, 95166-2, 29954-0 ####[facility] ([id number])[address] [place] [address] 93828PAZ AND AUTO DIFFon 91-72-7404XLJNDHJD BASOPHIL0.1 X10E9/LNormal0.0-0.2 ProMLanterman Developmental CenterComment on above:Performed By: #### CMP, 67910-7, CBCA ####[facility] ([id number])[address] [place] [address] 78480#### 2284-8, 2275-4, 2131-10 ####[facility] ([id number])[address] [place] [address], [address] 86[address]GTFAZGBJ NEUTROPHIL4.8 X10E9/LNormal1.5-6.6ProMethodist Hospital AtascosaComment on above:Performed By: #### CMP, , CBCA ####[facility] ([id number])[address] [place] [address] 05597#### 2284-8, 2275-4, 2131-10 ####[facility] ([id number])[address] [place] [address], [address] [place] [address] 79460 Basophils/100 WBC (Bld)1.0 %NormalProMethodist Hospital AtascosaComment on above: Performed By: #### CMP, 39641-9, CBCA ####[facility] ([id number])[address] [place] [address]25#### 2284-8, 6-4, 2131-10 ####[facility] ([id number])[address] [place] [address], [address], [place] [address]Xsrjyessykl (Bld) [#/Vol]0.2 10*3/uLNormal0.0-0.4 [facility] Cancer HospitalComment on above:Performed By: #### EBONY, , CBCA ####[facility] ([id number])[address] [place] [address]#### 2284-8, 2275-4, 2131-10 ####[facility] ([id number])[address], [address], [place] [address]Joeenrhxgvc/100 WBC (Bld)3.4 %NormalProMethodist Hospital AtascosaComment on above:Performed By: #### EBONY, , CBCA ####[facility] ([id number])[address] [place] [address]#### 2284-8, 2275-05, 2131-10 ####[facility] ([id number])[address], [address] [place] [address] Erythrocyte distribution width (RBC) [Ratio]18.5 %High11.5-15.0[facility] Memorial HospitalComment on above:Performed By: #### EBONY, , CBCA ####[facility] ([id number])[address] [place] [address]#### 2284-8, 2275-05, 2131-10 ####[facility] ([id number])[address], [address], [place] [address]Phjbxgqwrs (Bld) [Volume fraction] 22.6 %Xiq96-51TcnVjkddwMethodist Hospital AtascosaComment on above:Performed By: #### EBONY, , CBCA ####[facility] ([id number])[address] [place] [address]#### 2284-8, 2275-4, 2131-10 ####[facility] ([id number])[address], [address], [place] [address]Nvihtyusgc (Bld) [Mass/Vol]7.6 g/dLLow13.0-17.0ProMethodist Hospital AtascosaComment on above: Performed By: #### EBONY, 03213-6, CBCA ####[facility] ([id number])[address] [place] [address]#### 2284-8, 2275-05, 2131-10 ####[facility] ([id number])[address], [address] [place] [address]Lalshkzncug (Bld) [#/Vol]0.8 10*3/uLLow1.0-3.5PThe NeuroMedical Centerica [facility] Norris Jr. Cancer HospitalComment on above:Performed By: #### EBOYN, , CBCA ####[facility] ([id number])[address] [place] [address]#### 2284-8, 2275-05, 2131-10 ####[facility] ([id number])[address], [address] [place] [address]Uahmdpniqyz/100 WBC (Bld)12.2 %NormalProMethodist Hospital AtascosaComment on above:Performed By: #### CMP, , CBCA ####[facility] ([id number])[address] [place] [address]#### 2284-8, 2275-05, 2131-10 ####[facility] ([id number])[address], [address] [place] [address]TGG (RBC) [Entitic mass]33.4 ieMfotgf06-48SexMscfzzMethodist Hospital AtascosaComment on above:Performed By: #### CMP, , CBCA ####[facility] ([id number])[address] [place] [address]#### 2284-8, 2275-05, 2131-10 ####[facility] ([id number])[address], [address] [place] [address]AGWN (RBC) [Mass/Vol]33.4 g/hRYeexru78-30RfgEwxlmmMethodist Hospital AtascosaComment on above:Performed By: #### CMP, , CBCA ####[facility] ([id number])[address] [place] [address]77#### 2284-8, 2275-05, 2131-10 ####[facility] ([id number])[address], [address] [place] [address]AKM (RBC) [Entitic vol] 100 kSNsacmx71-073SheWlygls Fremont HospitalComment on above:Performed By: #### CMP, , CBCA ####[facility] ([id number])[address] [place] [address]85#### 2284-8, 2275-05, 2131-10 ####[facility] ([id number])[address], [address] [place] [address] Monocytes (Bld) [#/Vol]0.4 10*3/uLNormal0-0.9ProMethodist Hospital AtascosaComment on above:Performed By: #### CMP, , CBCA ####[facility] ([id number])[address] [place] [address] 44962#### 2284-8, 2275-05, 2131-10 ####[facility] ([id number])[address], [address] [place] [address] 12962Exyjprebs/100 WBC (Bld)6.0 %NormalProMethodist Hospital AtascosaComment on above:Performed By: #### CMP, , CBCA ####[facility] ([id number])[address] [place] [address] 94385#### 2284-8, 2275-4, 2131-10 ####[facility] ([id number])[address], [address] [place] [address] 93996Xsjfctihuvn/100 WBC (Bld)77.4 % NormalProMethodist Hospital AtascosaComment on above:Performed By: #### CMP, , CBCA ####[facility] ([id number])[address] [place] [address] 70909#### 2284-8, 2275-05, 2131-10 ####[facility] ([id number])[address], [address] [place] [address] 46057Jyifccfv mean volume (Bld) [Entitic vol]10.9 fLNormal7-12Pro[facility]. Cancer HospitalComment on above: Performed By: #### CMP, , CBCA ####[facility] ([id number])[address] [place] [address] 90732#### 2284-8, 2275-4, 2131-10 ####[facility] ([id number])[address], [address] [place] [address] 99282Rvwabfogu (Bld) [#/Vol]110 10*3/fULbl790-173UkvSjdhmeMethodist Hospital AtascosaComment on above:Performed By: #### CMP, , CBCA ####[facility] ([id number])[address] [place] [address] 03402#### 2284-8, 2275-4, 2131-10 ####[facility] ([id number])[address], [address] [place] [address] 45788OXI COUNT2.26 X10E12/L Low4.10-5.70ProMethodist Hospital AtascosaComment on above:Performed By: #### EBONY, 94106-8, CBCA ####[facility] ([id number])[address] [place] [address] 97722#### 2284-8, 6-4, 2131-10 ####[facility] ([id number])[address] [facility], [address] [place] [address] 22654SAN (Bld) [#/Vol]6.2 10*3/uLNormal4.0-11.0ProMethodist Hospital AtascosaComment on above: Performed By: #### EBONY, , CBCA ####[facility] ([id number])[address] [place] [address] 93681#### 2284-8, 2275-4, 2131-10 ####[facility] ([id number])[address] [place] [address] [place] [address] 51081IXRLOOFXVINVF METABOLIC PANELon 12-48-2998Jvwlqhn [Mass/Vol]2.8 g/dLLow3.2-5.3Pro[facility]. Cancer HospitalComment on above:Performed By: #### EBONY, , CBCA ####[facility] ([id number])[address] [place] [address] 18392#### 2284-8, 6-4, 2131-10 ####[facility] ([id number])[address] [place] [address] [place] [address] 33715JVO [Catalytic activity/Vol]77 U/OMrhndn94-155XyrMqmrklMethodist Hospital AtascosaComment on above:Performed By: #### EBONY, , CBCA ####[facility] ([id number])[address] [place] [address] 23177#### 2284-8, 6-4, 2131-10 ####[facility] ([id number])[address], [address], [place] [address]LHR [Catalytic activity/Vol]12 U/LNormal0-40ProMethodist Hospital AtascosaComment on above:Performed By: #### EBONY, 89131-2, CBCA ####[facility] ([id number])[address] [place] [address] 97853#### 2284-8, 2275-05, 2131-10 ####[facility] ([id number])[address] [facility], [address] [place] [address] 00648Hybsn gap [Moles/Vol]4 mmol/LLow5-15ProMethodist Hospital AtascosaComment on above:Performed By: #### EBONY, 40710-4, CBCA ####[facility] ([id number])[address] [place] [address] 17300#### 2284-8, 2275-05, 2131-10 ####[facility] ([id number])0 [facility], [address] [place] [address] 28466EGA [Catalytic activity/Vol]18 U/LNormal0-41ProMethodist Hospital AtascosaComment on above: Performed By: #### EBONY, 95832-4, CBCA ####[facility] ([id number])[address] [place] [address] 04515#### 2284-8, 2275-05, 2131-10 ####[facility] ([id number])[address] [facility], [address], [place] [address]Vrmptjdwf [Mass/Vol]0.6 mg/dLNormal0.3-1.2Pro[facility]. Cancer HospitalComment on above:Performed By: #### EBONY, 70093-6, CBCA ####[facility] ([id number])[address] [place] [address] 82341#### 2284-8, 2275-05, 2131-10 ####[facility] ([id number])[address], [address], [place] [address]Dwizghp [Mass/Vol]8.8 mg/dLNormal8.5-10.5Pro[facility]. Cancer HospitalComment on above:Performed By: #### EBONY, , CBCA ####[facility] ([id number])[address] [place] [address] 99954#### 2284-8, 2275-05, 2131-10 ####[facility] ([id number])[address], [address] [address] Chloride [Moles/Vol]103 mmol/USppooj80-150YpnSdrqjx [facility] Cancer HospitalComment on above:Performed By: #### EBONY, , CBCA ####[facility] ([id number])[address] [place] [address] 27274#### 2284-8, 2275-05, 2131-10 ####[facility] ([id number])[address], [address], [place] [address]ZA7 [Moles/Vol]28 mmol/DTtemcf57-72FcvWigtywSt. Vincent HospitalComment on above:Performed By: #### CMP, 33017-8, CBCA ####[facility] ([id number])[address] [place] [address] 28871#### 2284-8, 2275-05, 2131-10 ####[facility] ([id number])[address], [address], [place] [address]Wxyhqzkglu [Mass/Vol]1.11 mg/dL Normal0.70-1.20ProMethodist Hospital AtascosaComment on above:Result Comment: METHOD TRACEABLE TO IDMS STANDARDPerformed By: #### EBONY, 72052-2, CBCA ####[facility] ([id number])[address] [place] [address] 68818#### 2284-8, 6-4, 2131-10 ####[facility] ([id number])[address] [place] [address], [address] [address]RBQ/1.73 sq M.predicted among non- blacks MDRD (S/P/Bld) [Vol rate/Area]69 mL/min/{1.73_m2}Normal>59ProMethodist Hospital AtascosaComment on above:Result Comment: Reported eGFR is based on theCKD-EPI 2020 equation that doesnot use a race coefficient.Performed By: #### EBONY, , CBCA ####[facility] ([id number])[address] [place] [address] 63107#### 2284-8, 6-4, 2131-10 ####[facility] ([id number])[address] [place] [address], [address] [address] Glucose [Mass/Vol]114 mg/nWKtvz03-36DqnIkgcgfMethodist Hospital AtascosaComment on above: Performed By: #### EBONY, 88291-7, CBCA ####[facility] ([id number])[address] [place] [address] 14895#### 2284-8, 6-4, 2131-10 ####[facility] ([id number])[address] [place] [address], [address] [address]Cnvoxgnin [Moles/Vol]4.5 mmol/LNormal3.5-5.0ProMethodist Hospital AtascosaComment on above:Performed By: #### EBONY, , CBCA ####[facility] ([id number])[address] [place] [address] 84749#### 2284-8, 2275-05, 2131-10 ####[facility] ([id number])[address], [address], [place] [address]Bfnpjxv [Mass/Vol]6.5 g/dLNormal6.0-8.0ProMethodist Hospital AtascosaComment on above:Performed By: #### EBONY, 77033-9, CBCA ####[facility] ([id number])[address] [place] [address] 47208#### 2284-8, 2275-05, 2131-10 ####[facility] ([id number])0 [facility], [address] [place] [address] 32284 Sodium [Moles/Vol]135 mmol/MTqpvho395-083EpyRmmtag [facility]remont HospitalComment on above:Performed By: #### EBONY, 38003-4, CBCA ####[facility] ([id number])[address] [place] [address] 90876#### 2284-8, 2275-05, 2131-10 ####[facility] ([id number])[address], [address] [place] [address] 01169Igli nitrogen [Mass/Vol]15 mg/dLNormal5-27ProMethodist Hospital AtascosaComment on above:Performed By: #### EBONY, 06584-2, CBCA ####[facility] ([id number])[address] [place] [address] 76082#### 2284-8, 2275-05, 2131-10 ####[facility] ([id number])[address], [address] [place] [address] 99530VBKQVTUFwg 09-23-2023 Ferritin [Mass/Vol]114 ng/rRSzwpzf36-412CckVdsbyd [facility]remont HospitalComment on above:Performed By: #### EBONY, , CBCA ####[facility] ([id number])[address] [place] [address] 65640#### 2284-8, 2275-05, 2131-10 ####[facility] ([id number])[address] [facility], [address] [place] [address] 95140Scwnhc [Mass/Vol]on 83-29-5760FGLWO ACID19.1 ng/mL Normal>5.8ProMethodist Hospital AtascosaComment on above:Result Comment: NEW REFERENCE RANGEPerformed By: #### EBONY, , CBCA ####[facility] ([id number])[address] [place] [address] 72797#### 228-8, 2275-05, 2131-10 ####[facility] ([id number])[address] [facility], [address] [place] [address] 69516UPUBVHBBKzg 94-50-4408Sgefevyhb [Mass/Vol] 2.0 mg/dLNormal1.8-2.6ProMethodist Hospital AtascosaComment on above:Performed By: #### EBONY, , CBCA ####[facility] ([id number])[address] [place] [address] 11796#### 228-8, 2275-05, 2131-10 ####[facility] ([id number])[address], [address] [place] [address] 43824 VITAMIN B12on 32-72-9138Ookmafmwk (Vitamin B12) [Mass/Vol]259 pg/nLUpxefi949-712 [facility] Cancer HospitalComment on above:Performed By: #### EBONY, , CBCA ####[facility] ([id number])[address] [place] [address] 64738#### 2284-8, 2276-4, 2131-10 ####[facility] ([id number])[address] [place] [address], [address], [place] [address]DLJ AND AUTO DIFFon 60-61-6397KICVXRPL BASOPHIL0.0 X10E9/LNormal0.0-0.2PSt. Vincent Hospital Comment on above:Performed By: #### MARVA, , CMP ####[facility] ([id number])[address] [place] [address] 78157QARIPRLJ NEUTROPHIL4.9 X10E9/LNormal1.5-6.6ProMethodist Hospital AtascosaComment on above: Performed By: #### MARVA , CMP ####[facility] ([id number])[address] [place] [address] 95214Egycfixho/100 WBC (Bld)0.7 %NormalProMethodist Hospital AtascosaComment on above:Performed By: #### MARVA , CMP ####[facility] ([id number])[address] [place] [address] 70168Gthohtrkhgn (Bld) [#/Vol]0.2 10*3/uLNormal 0.0-0.4ProMethodist Hospital AtascosaComment on above:Performed By: #### MARVA , CMP ####[facility] ([id number])[address] [place] [address] 06921Vtkzzawcyrk/100 WBC (Bld)2.7 %NormalProMethodist Hospital AtascosaComment on above:Performed By: #### MARVA, , CMP ####[facility] ([id number])[address] [place] [address] 68232Tyqpsngtwwe distribution width (RBC) [Ratio]16.3 %High 11.5-15.0ProMethodist Hospital AtascosaComment on above:Performed By: #### MARVA , CMP ####[facility] ([id number])[address] [place] [address] 95273Kmmjvyarbg (Bld) [Volume fraction]21.0 %Oso07-86 [facility] Cancer HospitalComment on above:Performed By: #### MARVA, , CMP ####[facility] ([id number])[address] [place] [address] 81495Lntixszokd (Bld) [Mass/Vol]7.0 g/dLLow13.0-17.0[facility] HospitalComment on above:Performed By: #### MARVA, , CMP ####[facility] ([id number])[address] [place] [address] 56219Kcurwufclyk (Bld) [#/Vol]1.3 10*3/uLNormal1.0-3.5[facility] Cancer HospitalComment on above:Performed By: #### MARVA, , CMP ####[facility] ([id number])[address] [place] [address] 34851Sylisonrzrd/100 WBC (Bld)19.1 %NormalProMethodist Hospital AtascosaComment on above:Performed By: #### MARVA, , CMP ####[facility] ([id number])[address] [place] [address] 89671AHJ (RBC) [Entitic mass]33.9 ccMmumtf33-32PhhFsrgpxMethodist Hospital AtascosaComment on above:Performed By: #### MARVA, , CMP ####[facility] ([id number])[address] [place] [address] 83597URFP (RBC) [Mass/Vol]33.1 g/xQFihdml86-55KyuFesomzMethodist Hospital AtascosaComment on above: Performed By: #### MARVA , CMP ####[facility] ([id number])[address] [place] [address] 90464JSE (RBC) [Entitic vol]102 mPAqwn75-860SlmPtlswpGuernsey Memorial HospitalComment on above: Performed By: #### MARVA, , CMP ####[facility] ([id number])[address] [place] [address] 72769Kswwecnry (Bld) [#/Vol]0.5 10*3/uLNormal0-0.9[facility] HospitalComment on above: Performed By: #### MARVA, , CMP ####[facility] ([id number])[address] [place] [address] 71834Wmupylpyq/100 WBC (Bld)6.5 %NormalProMethodist Hospital AtascosaComment on above:Performed By: #### MARVA, , CMP ####[facility] ([id number])[address] [place] [address] 26421Yfliylzpmfh/100 WBC (Bld)71.0 %Normal [facility] HospitalComment on above:Performed By: #### MARVA, , CMP ####[facility] ([id number])[address] [place] [address] 37497Mpzwkmjr mean volume (Bld) [Entitic vol]10.6 fLNormal7-12 [facility] HospitalComment on above:Performed By: #### MARVA, , CMP ####[facility] ([id number])[address] [place] [address] 13414Ahrpsambx (Bld) [#/Vol]113 10*3/cVSne098-647VyoVpvskmMethodist Hospital AtascosaComment on above:Performed By: #### MARVA, , CMP ####[facility] ([id number])[address] [place] [address] 89837AMA COUNT2.05 X10E12/LLow4.10-5.70ProMethodist Hospital AtascosaComment on above:Performed By: #### MARVA, , CMP ####[facility] ([id number])[address] [place] [address] 64897YFV (Bld) [#/Vol]6.9 10*3/uLNormal4.0-11.0ProMethodist Hospital AtascosaComment on above:Performed By: #### MARVA, , CMP ####[facility] ([id number])[address] [place] [address] 18852ZGCHUDYDSVGOZ METABOLIC PANELon 54-03-2214Ycmdufz [Mass/Vol]2.7 g/dLLow3.2-5.3ProMedKindred HospitalComment on above:Performed By: #### MARVA, , CMP ####[facility] ([id number])[address] [place] [address] 21372QCJ [Catalytic activity/Vol]78 U/DUzyktj23-118QttWwcnqdMethodist Hospital AtascosaComment on above:Performed By: #### MARVA, , CMP ####[facility] ([id number])[address] [place] [address] 90921BRU [Catalytic activity/Vol]14 U/LNormal0-40ProMethodist Hospital AtascosaComment on above:Performed By: #### MARVA, , CMP ####[facility] ([id number])[address] [place] [address] 03738Qerrg gap [Moles/Vol]3 mmol/LLow5-15ProMethodist Hospital AtascosaComment on above:Performed By: #### MARVA , CMP ####[facility] ([id number])[address] [place] [address] [place], [place] [address]JSY [Catalytic activity/Vol]15 U/LNormal0-41[facility] Comment on above:Performed By: #### MARVA, , CMP ####[facility] ([id number])[address] [place] [address], [place] [address] Bilirubin [Mass/Vol]0.5 mg/dLNormal0.3-1.2PSt. Vincent HospitalComment on above:Performed By: #### MARVA , CMP ####[facility] ([id number])[address] [place] [address], [place] [address]Nvmvivp [Mass/Vol]8.7 mg/dLNormal8.5-10.5PSt. Vincent HospitalComment on above: Performed By: #### MARVA , CMP ####[facility] ([id number])[address] [place] [address], [place] [address]Syxnwzyx [Moles/Vol]102 mmol/JQoagmq15-642ThwMoloncGuernsey Memorial HospitalComment on above: Performed By: #### MARVA, , CMP ####[facility] ([id number])[address] [place] [address], [place] [address]DK6 [Moles/Vol]31 mmol/VYwrnys76-81XntIxijwySt. Vincent HospitalComment on above:Performed By: #### MARVA , CMP ####[facility] ([id number])[address] [place] [address], [place] [address]Vnfeyuuuuq [Mass/Vol]1.26 mg/dLHigh0.70-1.20 ProMLanterman Developmental CenterComment on above:Result Comment: METHOD TRACEABLE TO IDMS STANDARDPerformed By: #### MARVA , CMP ####[facility] ([id number])[address] [place] [address] 73031VRY/1.73 sq M.predicted among non-blacks MDRD (S/P/Bld) [Vol rate/Area]59 mL/min/{1.73_m2} Low>59ProMethodist Hospital AtascosaComment on above:Result Comment: Reported eGFR is based on theCKD-EPI 2020 equation that doesnot use a race coefficient. Performed By: #### MARVA , CMP ####[facility] ([id number])[address] [place] [address] 65927Soguenf [Mass/Vol]123 mg/yZLapz59-01VxcUhlxzzMethodist Hospital AtascosaComment on above:Performed By: ###Carolyn DURHAM , CMP ####[facility] ([id number])[address] [place] [address] 36714Ciixpuqaq [Moles/Vol]4.3 mmol/LNormal 3.5-5.0ProMethodist Hospital AtascosaComment on above:Performed By: #### MARVA , CMP ####[facility] ([id number])[address] [place] [address] 78514Ontubkc [Mass/Vol]6.5 g/dLNormal6.0-8.0ProMethodist Hospital AtascosaComment on above:Performed By: ###Carolyn DURHAM , CMP ####[facility] ([id number])[address] [place] [address] 01399Nmyxls [Moles/Vol]136 mmol/SIbnusl554-537EkaDmnisj [facility] HospitalComment on above:Performed By: ###Carolyn DURHAM , CMP ####[facility] ([id number])[address] [place] [address] 20340Klyx nitrogen [Mass/Vol]21 mg/dLNormal5-27ProMethodist Hospital AtascosaComment on above:Performed By: ###Carolyn DURHAM , CMP ####[facility] ([id number])[address] [place] [address] 00272Mqvffot Glucometer (BldC) [Mass/Vol]on 38-60-9691Uaeayqn [Mass/Vol]145 mg/nDIwrd64-00 [facility] HospitalGlucose [Mass/Vol]161 mg/zIQpyh02-47QgdMovwgfGuernsey Memorial HospitalHGB AND HCTon 51-75-1445Ydsubqtrzn (Bld) [Volume fraction]22.8 %Zkl16-54 [facility] HospitalComment on above:Performed By: #### HH ####[facility] ([id number])[address] [place] [address] 03186Eevzboqbur (Bld) [Mass/Vol]7.6 g/dLLow13.0-17.0[facility] Comment on above:Performed By: #### HH ####[facility] ([id number])[address] [place] [address] 73641EUOYPXUPBor 31-47-2399Msflehymc [Mass/Vol]1.4 mg/dLLow1.8-2.6[facility] Comment on above:Performed By: #### MARVA, 37883-5, CMP ####[facility] ([id number])[address] [place] [address] 21560LHKNQ METABOLIC PANLon 61-08-3420Vvemw gap [Moles/Vol]9 mmol/LNormal5-15ProMethodist Hospital AtascosaComment on above:Performed By: #### FEPJesse, HA1C ####[facility] ([id number])[address] [place] [address], [address], [place] [address]#### CBCRachel, 78537-7, BMP ####[facility] ([id number])[address] [place] [address] [place], [place] [address]Unpallp [Mass/Vol]8.6 mg/dLNormal8.5-10.5 [facility] Cancer HospitalComment on above:Performed By: #### JEROME NEELY ####[facility] ([id number])[address] [place] [address], [address] [place] [address] 38976#### MARVA, 56549-2, BMP ####[facility] ([id number])[address] [place] [address] 32269Syhwcpjq [Moles/Vol]99 mmol/L Jgbqhz42-935XgoKhwmkg [facility] Cancer HospitalComment on above:Performed By: #### JEROME NEELY ####[facility] ([id number])[address] [place] [address], [address] [address]#### MARVA 20866-1, BMP ####[facility] ([id number])[address] [place] [address] 37279HS4 [Moles/Vol]26 mmol/EGxoiud28-40MkxJgepps [facility] Cancer HospitalComment on above:Performed By: #### JEROME NEELY ####[facility] ([id number])[address] [place] [address], [address] [place] [address]#### MARVA, 89324-5, BMP ####[facility] ([id number])[address] [place] [address] 25229Cqhsyhsihc [Mass/Vol]1.70 mg/dLHigh0.70-1.20ProMediProvidence Tarzana Medical CenterComment on above: Result Comment: METHOD TRACEABLE TO IDMS STANDARDPerformed By: #### JEROME NEELY ####[facility] ([id number])[address] [place] [address], [address] [place] [address]#### MARVA, 90303-0, BMP ####[facility] ([id number])[address] [place] [address] 55519YZU/1.73 sq M.predicted among non-blacks MDRD (S/P/Bld) [Vol rate/Area]42 mL/min/{1.73_m2}Low>59ProMethodist Hospital AtascosaComment on above:Result Comment: Reported eGFR is based on theCKD-EPI 2020 equation that doesnot use a race coefficient.Performed By: #### JEROME NEELY ####[facility] ([id number])0 [facility], [address] [place] [address]#### MARVA, 43291-9, BMP ####[facility] ([id number])[address] [place] [address] 64456Xtbagmy [Mass/Vol]188 mg/wCYukl39-53CfcZszkpaMethodist Hospital AtascosaComment on above:Performed By: #### JEROME NEELY ####[facility] ([id number])[address] [address]#### MARVA, 81077-4, BMP ####[facility] ([id number])[address] [place] [address] Potassium [Moles/Vol]4.0 mmol/LNormal3.5-5.0ProMethodist Hospital AtascosaComment on above:Performed By: #### JEROME NEELY ####[facility] ([id number]) [address] [address]#### MARVA, 07772-9, BMP ####[facility] ([id number])[address] [place] [address] 65582Vkgmhp [Moles/Vol]134 mmol/MAzwovp781-418MqwVojnoy Fremont HospitalComment on above:Performed By: #### CHIN, HA1C ####[facility] ([id number])0 [facility] [address] [place] [address]#### MARVA, 61474-1, BMP ####[facility] ([id number])[address] [place] [address] 80874Sxwa nitrogen [Mass/Vol]28 mg/dLHigh5-27ProMethodist Hospital AtascosaComment on above:Performed By: #### CHIN, JEROME ####[facility] ([id number])[address], [address] [place] [address]#### MARVA, 13124-2, BMP ####[facility] ([id number])[address] [place] [address] [address], [place], [place] [address]HDH AND AUTO DIFFon [id number] BASOPHIL 0.1 X10E9/LNormal0.0-0.2[facility] Cancer HospitalCompontiac general hospital on above:Performed By: #### CHIN, JEROME ####[facility] ([id number])0 [facility], [address] [place] [address]#### MARVA, 81727-3, BMP ####[facility] ([id number])[address] [place] [address] 72549FJAGWPJZ NEUTROPHIL7.5 X10E9/LHigh1.5-6.6ProMethodist Hospital AtascosaComment on above: Performed By: #### JEROME NEELY ####[facility] ([id number])0 [facility], [address] [place] [address]#### MARVA, 35241-0, BMP ####[facility] ([id number])[address] [place] [address] Basophils/100 WBC (Bld)1.2 %NormalProMethodist Hospital AtascosaComment on above: Performed By: #### CHIN, HA1C ####[facility] ([id number])[address], [address] [place] [address]#### MARVA, 98077-3, BMP ####[facility] ([id number])[address] [place] [address]752 Eosinophils (Bld) [#/Vol]0.2 10*3/uLNormal0.0-0.4[facility] Comment on above:Performed By: #### CHIN, JEROME ####[facility] ([id number])[address] [facility], [address] [place] [address]#### MARVA, 04427-0, BMP ####[facility] ([id number])[address] [place] [address] 53694Hxgrouwcqhx/100 WBC (Bld)2.1 %NormalProMethodist Hospital AtascosaComment on above:Performed By: #### JEROME NEELY ####[facility] ([id number])0 [facility], [address] [place] [address]#### MARVA, 97107-2, BMP ####[facility] ([id number])[address] [place] [address] 90765Azbsffuvire distribution width (RBC) [Ratio]16.5 % High11.5-15.0ProMethodist Hospital AtascosaComment on above:Performed By: #### CHIN, JEROME ####[facility] ([id number])0 [facility], [address] [place] [address]#### MARVA, 94392-3, BMP ####[facility] ([id number])[address] [place] [address] 49609Jmdzsiqlqm (Bld) [Volume fraction]23.2 %Cjm92-28LxvDipbanMethodist Hospital AtascosaComment on above: Performed By: #### CHIN, HASharad ####[facility] ([id number])0 [facility], [address] [place] [address] 48600#### MARVA, 45791-7, BMP ####[facility] ([id number])[address] [place] [address] 31839 Hemoglobin (Bld) [Mass/Vol]7.8 g/dLLow13.0-17.0ProMethodist Hospital AtascosaComment on above:Performed By: #### CHIN, JEROME ####[facility] ([id number])[address] [place] [address], [address] [place] [address] 10103#### CBCRachel, 02719-0, BMP ####[facility] ([id number])[address] [place] [address] 72482Xikriywjomr (Bld) [#/Vol]1.4 10*3/uLNormal1.0-3.5Pro[facility]. Cancer HospitalComment on above:Performed By: #### CHIN, JEROME ####[facility] ([id number])[address] [place] [address], [address] [place] [address] 29460#### MARVA, 80368-3, BMP ####[facility] ([id number])[address] [place] [address] [address], [place], [place] [address]Zpksyjfqcok/100 WBC (Bld)14.2 %NormalProMethodist Hospital AtascosaComment on above:Performed By: #### CHIN, JEROME ####[facility] ([id number])[address] [place] [address], [address] [place] [address] 56939#### CBCRachel, 79073-3, BMP ####[facility] ([id number])[address] [place] [address] 53463ZIC (RBC) [Entitic mass]34.1 bdKsdf84-26 ProMedicSonoma Valley HospitalComment on above:Performed By: #### CHIN, HASharad ####[facility] ([id number])[address] [place] [address], [address] [place] [address] 98636#### CBCA, 33694-6, BMP ####[facility] ([id number])[address] [place] [address] 42367URZS (RBC) [Mass/Vol]33.6 g/dLNormal 32-36ProMethodist Hospital AtascosaComment on above:Performed By: #### CHIN, HASharad ####[facility] ([id number])0 [facility], [address] [place] [address] 60133#### MARVA, 98517-7, BMP ####[facility] ([id number])[address] [place] [address] 99267BNQ (RBC) [Entitic vol]102 fLHigh 80-100ProMethodist Hospital AtascosaComment on above:Performed By: #### CHIN, JEROME ####[facility] ([id number])2129 [facility], [address] [place], [place] [address]#### MARVA, 23624-7, BMP ####[facility] ([id number])[address] [place] [address] 34089Susolhwpa (Bld) [#/Vol]0.7 10*3/uL Normal0-0.9Guernsey Memorial HospitalComment on above:Performed By: #### CHIN, HASharad ####[facility] ([id number])0 [facility], [address] [place] [address] 62950#### CBCRachel, 81735-4, BMP ####[facility] ([id number])[address] [place] [address] 42661Shiecvhlc/100 WBC (Bld)7.0 %NormalProMethodist Hospital AtascosaComment on above:Performed By: #### CHIN, HA1C ####[facility] ([id number])0 [facility], [address] [place] [address] 05994#### CBCRachel, 98437-6, BMP ####[facility] ([id number])[address] [place] [address] 74098Zfnhnvxklol/100 WBC (Bld)75.5 %NormalProMethodist Hospital AtascosaComment on above:Performed By: #### CHIN, JEROME ####[facility] ([id number])0 [facility], [address] [place] [address] 05493#### MARVA, 61600-6, BMP ####[facility] ([id number])[address] [place] [address] 69140Gfrhwfqu mean volume (Bld) [Entitic vol]10.6 fLNormal7-12Pro[facility]. Cancer HospitalComment on above:Performed By: #### JEROME NEELY ####[facility] ([id number])0 [facility], [address] [place] [address] 92228#### MARVA, 48176-6, BMP ####[facility] ([id number])[address] [place] [address] 81665Fshltsafs (Bld) [#/Vol]156 10*3/nUVvppru669-781FhwGyluzx Fremont HospitalComment on above:Performed By: #### CHIN, JEROME ####[facility] ([id number])0 [facility], [address] [place] [address] 40794#### MARVA, 22606-7, BMP ####[facility] ([id number])[address] [place] [address] [place], [place] [address]EIK COUNT2.29 X10E12/LLow4.10-5.70ProMethodist Hospital AtascosaComment on above:Performed By: #### CHIN, JEROME ####[facility] ([id number])0 [facility], [address] [place] [address] 28184#### MARVA, 74155-3, BMP ####[facility] ([id number])[address] [place] [address] [place] [address]WCG (Bld) [#/Vol]9.9 10*3/uLNormal4.0-11.0 Guernsey Memorial HospitalComment on above:Performed By: #### JEROME NEELY ####[facility] ([id number])2130 [facility], [address] [place], [place] [address]#### MARVA, 42618-0, BMP ####[facility] ([id number])[address] [place] [address] 69740AQ ABDOMEN AND PELVIS WO CONTon 49-01-3382RI ABDOMEN AND PELVIS WO CONTNormalProMethodist Hospital AtascosaGlucose Glucometer (BldC) [Mass/Vol]on 53-11-1077Rmsqswy [Mass/Vol]178 mg/uAIdxz50-67 [facility] Memorial HospitalGlucose [Mass/Vol]157 mg/zIQelg93-30KxxZbrumlGuernsey Memorial HospitalHGB A1C (GLYCO-HGB)on 45-82-3424Yfukiiy [Mass/Vol]111 mg/dLNormal Gu[facility]sey Memorial HospitalComment on above:Performed By: #### CHIN, JEROME ####[facility] ([id number])0 [facility], [address] [place] [address]#### MARVA, 05635-3, BMP ####[facility] ([id number])[address] [place] [address] 26539UxP9u (Bld) [Mass fraction]5.5 % Normal4.4-5.6Guernsey Memorial HospitalComment on above:Result Comment: NOTE ADA Guidelines Result HgbA1c Normal : less than 5.7 % Prediabetes : 5.7 % to 6.4 % Diabetes : > 6.4 %Use with caution in patients with abnormal hemoglobin variants asthe half-life of red blood cells and in vivo glycation rates areaffected.Performed By: #### JEROME NEELY ####[facility] ([id number])[address] [place] [address] 79138#### MARVA, 87339-7, BMP ####[facility] ([id number])[address] [place] [address] 06118HHTH PROFILEon 55-86-9307Cnkw [Mass/Vol]117 ug/dL Lnwsta56-803CqsFehzngMethodist Hospital AtascosaComment on above:Performed By: #### JEROME NEELY ####[facility] ([id number])[address] [place] [address]#### MARVA, 58615-3, BMP ####[facility] ([id number])[address] [place] [address] 83029VDKX JRXANIE125 ug/vHKxrh428-822KcyQayafiMethodist Hospital AtascosaComment on above:Performed By: #### JEROME NEELY ####[facility] ([id number])[address] [place] [address] 60817#### MARVA, 00914-4, BMP ####[facility] ([id number])[address] [place] [address] 62598LDRO KMXMSYZEMV75 % SFEXRNNGVZFespmd86-68CnbKkqrou Fremont HospitalComment on above:Performed By: #### JEROME NEELY ####[facility] ([id number])[address] [place] [address] 84127#### MARVA, 28856-4, BMP ####[facility] ([id number])[address] [place] [address] 24508Drwhhmh (P mayra) [Moles/Vol]on 36-06-7677Phreclw [Moles/Vol]1.1 mmol/LNormal0.4-2.0ProMethodist Hospital AtascosaComment on above:Performed By: #### 41226-0 ####[facility] ([id number])[address] [place] [address] 01563XNCNWNB W/REFLEX3.3 mmol/LHigh0.4-2.0ProMethodist Hospital AtascosaComment on above: Performed By: #### FEPR, HA1C ####[facility] ([id number])[address] [place] [address], [address] [place] [address] 70539#### CBCA, 28239-2, BMP ####[facility] ([id number])[address] [place] [address] 83786JXTDF CULTUREon 86-20-4230Risnilrb identified Cx Nom (U)CULTURE RESULTS MULTIPLE SPECIES PRESENT. PROBABLE COLLECTION CONTAMINATION. SUGGEST REPEAT SPECIMEN. CORRECTED REPORT: PREVIOUSLY REPORTED 50,000 to 100,000 ORGANISMS/mL PROTEUS MIRABILISAbnormalProMethodist Hospital AtascosaComment on above:Performed By: #### 630-4 ####[facility] ([id number])[address] [place] [address], [address] [place] [address] 51618RXT MACROSCOPIC NURon 12-61-7502RYPLOZLQE NURNegative NormalNEGProMethodist Hospital AtascosaComment on above:Performed By: #### NUM ####[facility] ([id number])[address] [place] [address] 69066DGQCY/HGB NURLargeAbnormalNEGProRegional Medical Centerca [facility] Norris Jr. Cancer HospitalComment on above:Performed By: #### NUM ####[facility] ([id number])[address] [place] [address] 89777BWURACY BXF180 mg/dLAbnormalNEG [facility] Cancer HospitalComment on above:Performed By: #### NUM ####[facility] ([id number])[address] [place] [address], [place] [address]HLKGUPX NURNegativeNormalNEGProRegional Medical Centerca [facility] Norris Jr. Cancer HospitalComment on above: Performed By: #### NUM ####[facility] ([id number])[address] [place] [address], [place] [address]PIKVPGOIP ESTERASE NURTraceAbnormalNEG [facility]. Cancer HospitalComment on above:Performed By: #### NUM ####[facility] ([id number])[address] [place] [address], [place] [address]UQUBYBU NURNegativeNormalNEGProMethodist Hospital AtascosaComment on above: Performed By: #### NUM ####[facility] ([id number])[address] [place] [address], [place] [address]RH NUR6.5Xhbtfq5.0-8.5PSt. Vincent HospitalComment on above:Performed By: #### NUM ####[facility] ([id number])[address] [place] [address], [place] [address]FLPWZLP ENMANUEL NegativeNormalNEGProRegional Medical Centerca [facility] Norris Jr. Cancer HospitalComment on above:Performed By: #### NUM ####[facility] ([id number])[address] [place] [address], [place] [address]LQMIWMXS GRAVITY NUR1.361Fwukzj9.003-1.035ProMethodist Hospital AtascosaComment on above:Performed By: #### NUM ####[facility] ([id number])[address] [place] [address], [place] [address] UROBILINOGEN NUR0.2 eu/dLNormal<1.1PSt. Vincent HospitalComment on above: Performed By: #### NUM ####[facility] ([id number])[address] [place] [address], [place] [address]XWW AND AUTO DIFFon 72-37-0156SZXJITZK BASOPHIL0.0 X10E9/LNormal0.0-0.2ProMedKindred HospitalComment on above: Performed By: #### EBONY, , CBCA ####[facility] ([id number])[address] [place] [address] 86996SLEDVCZH NEUTROPHIL5.4 X10E9/LNormal1.5-6.6ProMethodist Hospital AtascosaComment on above: Performed By: #### EBONY, , CBCA ####[facility] ([id number])[address] [place] [address] 71605Efnoxipmv/100 WBC (Bld)0.1 %NormalGuernsey Memorial HospitalComment on above:Performed By: #### EBONY, , CBCA ####[facility] ([id number])[address] [place] [address] 78650Ngfnyonybhh (Bld) [#/Vol]0.3 10*3/uLNormal 0.0-0.4Guernsey Memorial HospitalComment on above:Performed By: #### EBONY, , CBCA ####[facility] ([id number])[address] [place] [address] 13522Uzhowfiyozt/100 WBC (Bld)3.9 %NormalProMethodist Hospital AtascosaComment on above:Performed By: #### EBONY, , CBCA ####[facility] ([id number])[address] [place] [address] 38363Dnqafjaicnu distribution width (RBC) [Ratio]16.8 %High11.5-15.0Guernsey Memorial HospitalComment on above:Performed By: #### EBONY, , CBCA ####[facility] ([id number])[address] [place] [address] 21575Vnejgnefqp (Bld) [Volume fraction]23.6 %Lys01-91QxjTjxnzxMethodist Hospital AtascosaComment on above:Performed By: #### EBONY, , CBCA ####[facility] ([id number])[address] [place] [address] 43400Eaxyopvxnj (Bld) [Mass/Vol]8.0 g/dLLow13.0-17.0[facility] Memorial HospitalCompontiac general hospital on above:Performed By: #### EBONY, , CBCA ####[facility] ([id number])[address] [place] [address] 02569Jswsdhtstjj (Bld) [#/Vol]1.4 10*3/uLNormal1.0-3.5Pro[facility] Cancer HospitalCompontiac general hospital on above:Performed By: #### EBONY, , CBCA ####[facility] ([id number])[address] [place] [address] 78436Erthyqldpyq/100 WBC (Bld)18.7 %NormalProMethodist Hospital AtascosaCompontiac general hospital on above:Performed By: #### EBONY, , CBCA ####[facility] ([id number])[address] [place] [address] 47199UKD (RBC) [Entitic mass]34.7 niSmrt01-35NbhCnjaclGuernsey Memorial HospitalCompontiac general hospital on above:Performed By: #### EBONY, , CBCA ####[facility] ([id number])[address] [place] [address] 18744EACY (RBC) [Mass/Vol]33.9 g/bOTvkkqy82-93JbyEyvolfMethodist Hospital AtascosaCompontiac general hospital on above: Performed By: #### EBONY, , CBCA ####[facility] ([id number])[address] [place] [address] 68945KQM (RBC) [Entitic vol]102 nUNoyk01-291SirEvfxuiMethodist Hospital AtascosaComment on above: Performed By: #### CMP, , CBCA ####[facility] ([id number])[address] [place] [address] 08089Dofhiyivm (Bld) [#/Vol]0.5 10*3/uLNormal0-0.9Gu[facility]sey Memorial HospitalComment on above: Performed By: #### CMP, , CBCA ####[facility] ([id number])[address] [place] [address] 00468Fufridnkf/100 WBC (Bld)7.1 %NormalGuernsey Memorial HospitalCompontiac general hospital on above:Performed By: #### EBONY, , CBCA ####[facility] ([id number])[address] [place] [address] 97327Hlomzrgfaxx/100 WBC (Bld)70.2 %Normal ProMLanterman Developmental CenterComment on above:Performed By: #### EBONY, , CBCA ####[facility] ([id number])[address] [place] [address] 70780Lfhjfvhh mean volume (Bld) [Entitic vol]10.9 fLNormal7-12 Gu[facility]sey Memorial HospitalComment on above:Performed By: #### EBONY, , CBCA ####[facility] ([id number])[address] [place] [address] 31831Skkcxgvdk (Bld) [#/Vol]154 10*3/iKNkkouh144-485IhvHxualvGuernsey Memorial HospitalCompontiac general hospital on above:Performed By: #### CMP, , CBCA ####[facility] ([id number])[address] [place] [address] 55369TYQ COUNT2.30 X10E12/LLow4.10-5.70Gu[facility]sey Memorial HospitalComment on above:Performed By: #### CMP, , CBCA ####[facility] ([id number])[address] [place], [place] [address]QFS (Bld) [#/Vol]7.6 10*3/uLNormal4.0-11.0Gu[facility]sey Memorial HospitalComment on above:Performed By: #### [facility], , CBCA ####[facility] ([id number])[address] [place] [address] 39662BRV auto differentialon 10-49-5134Naqlzaglw (Bld) [#/Vol]0.0 10*3/uLSelect Medical Specialty Hospital [facility], Inc SystemBasophils/100 WBC (Bld)0.1 %[facility] Medical CenterEosinophils (Bld) [#/Vol]0.3 10*3/uLOhioHealth Grant Medical CenterEosinophils/100 WBC (Bld)3.9 %[facility] Medical CenterErythrocyte distribution width (RBC) [Ratio]16.8 %High11.5 - 15.0 %[facility] SystemHematocrit (Bld) [Volume fraction]23.6 %Low39 - 49 % [facility] Medical CenterHemoglobin (Bld) [Mass/Vol]8.0 g/dLLow13.0 - 17.0 g/dL [facility] SystemInterpretation and review of laboratory resultsAbnormal [facility] Medical CenterLymphocytes (Bld) [#/Vol]1.4 10*3/uLOhioHealth Grant Medical CenterLymphocytes/100 WBC (Bld)18.7 %[facility] HospitalH (RBC) [Entitic mass]34.7 bhZxga75 - 34 [facility] HospitalMCHC (RBC) [Mass/Vol]33.9 g/dL 32 - 36 g/dLOhioHealth Grant Medical CenterMCV (RBC) [Entitic vol]102 vQYiql22 - 100 fL [facility] CenterMonocytes (Bld) [#/Vol]0.5 10*3/uLSelect Medical Specialty [facility], Inc System Monocytes/100 WBC (Bld)7.1 %[facility] Medical CenterNeutrophils (Bld) [#/Vol]5.4 10*3/[facility] Hospital-FlintNeutrophils/100 WBC (Bld)70.2 %[facility] SystemPlatelet mean volume (Bld) [Entitic vol]10.9 fL7 - 12 [facility] SystemPlatelets (Bld) [#/Vol]154 10*3/uLSelect Medical Specialty Hospital - [facility], Inc SystemRBC (Bld) [#/Vol] 2.30 10*6/uLLowOhioHealth Grant Medical CenterWBC corrected for nucl RBC Auto (Bld) [#/Vol]7.6Torrance State HospitalCOMPREHENSIVE METABOLIC PANELon 31-71-1208Ciwjgol [Mass/Vol]3.1 g/dLLow3.2-5.3PSt. [facility] Hospital Comment on above:Performed By: #### EBONY, , CBCA ####[facility] ([id number])[address] [place] [address], [place] [address]AWP [Catalytic activity/Vol]79 U/AVnqawb60-388VdfXdwbfmGuernsey Memorial HospitalComment on above:Performed By: #### EBONY, , CBCA ####[facility] ([id number])[address] [place] [address] 44126VML [Catalytic activity/Vol]17 U/LNormal0-40Gu[facility] Memorial HospitalComment on above: Performed By: #### EBONY, , CBCA ####[facility] ([id number])[address] [place] [address] 43323Mpyak gap [Moles/Vol]8 mmol/LNormal5-15Gu[facility] Memorial HospitalComment on above: Performed By: #### EBONY, , CBCA ####[facility] ([id number])[address] [place] [address] 20479SNQ [Catalytic activity/Vol]22 U/LNormal0-41Gu[facility] Memorial HospitalComment on above: Performed By: #### EBONY, , CBCA ####[facility] ([id number])[address] [place] [address], [place] 215[address]Yxknuoniq [Mass/Vol]0.5 mg/dLNormal0.3-1.2PSt. Vincent HospitalComment on above: Performed By: #### EBONY, , CBCA ####[facility] ([id number])[address] [place] [address], [place] 08693Qmvmgio [Mass/Vol]8.8 mg/dLNormal8.5-10.5PSt. Vincent HospitalComment on above: Performed By: #### EBONY, , CBCA ####[facility] ([id number])[address] [place] [address], [place] 269[address]Kweeqimc [Moles/Vol]92 mmol/UJtz62-427AarIfyxpyMethodist Hospital AtascosaComment on above: Performed By: #### EBONY, , CBCA ####[facility] ([id number])[address] [place] [address], [place] 699[address]KB1 [Moles/Vol]37 mmol/SHbyk86-88EraCsgsupSt. Vincent HospitalComment on above:Performed By: #### EBONY, , CBCA ####[facility] ([id number])[address] [place] [address], [place] [address]Bfanwajchd [Mass/Vol]1.16 mg/dLNormal 0.70-1.20ProMethodist Hospital AtascosaComment on above:Result Comment: METHOD TRACEABLE TO IDMS STANDARDPerformed By: #### EBONY, , CBCA ####[facility] ([id number])[address] [place] [address], [place] [address]VIR/1.73 sq M.predicted among non-blacks MDRD (S/P/Bld) [Vol rate/Area]66 mL/min/{1.73_m2}Normal>59ProMethodist Hospital AtascosaComment on above:Result Comment: Reported eGFR is based on theCKD-EPI 2020 equation that doesnot use a race coefficient.Performed By: #### EBONY, , CBCA ####[facility] ([id number])[address] [place] [address], [place] [address]Akoytvp [Mass/Vol]111 mg/uVPtqr31-35VzhWsdlduMethodist Hospital AtascosaComment on above:Performed By: #### EBONY, , CBCA ####[facility] ([id number])[address] [place] [address], [place] [address]Qlzodqoin [Moles/Vol]3.3 mmol/LLow 3.5-5.0ProMethodist Hospital AtascosaComment on above:Performed By: #### EBONY, , CBCA ####[facility] ([id number])[address] [place] [address], [place] 813[address]Tkskxwk [Mass/Vol]6.9 g/dLNormal6.0-8.0ProMethodist Hospital AtascosaComment on above:Performed By: #### EBONY, , CBCA ####[facility] ([id number])[address] [place] [address], [place] [address]Modsff [Moles/Vol]137 mmol/ORdupdy524-982AzfEstvnt Fremont HospitalComment on above:Performed By: #### EBONY, , CBCA ####[facility] ([id number])[address] [place] [address], [place] [address]Nwsl nitrogen [Mass/Vol]23 mg/dLNormal5-27ProMethodist Hospital AtascosaComment on above:Performed By: #### EBONY, , CBCA ####[facility] ([id number])[address] [place] [address], [place] [address]Rqsqdxbgbvfvr metabolic panelon 84-18-2330Uwpgqig [Mass/Vol]3.1 g/dLLow3.2 - 5.3 g/dLPro[facility] SystemALP [Catalytic activity/Vol]79 U/L39 - 130 U/[facility] SystemALT No additional P-5'-P [Catalytic activity/Vol]17 U/L0 - 40 U/[facility] SystemAnion gap [Moles/Vol]8 mmol/L5 - 15 mmol/[facility] SystemAST [Catalytic activity/Vol]22 U/L0 - 41 U/[facility] SystemBilirubin [Mass/Vol]0.5 mg/dL0.3 - 1.2 mg/dLSelect [facility] SystemCalcium [Mass/Vol]8.8 mg/dL8.5 - 10.5 mg/dLSelect [facility] SystemChloride [Moles/Vol]92 mmol/LLow98 - 109 mmol/[facility] SystemCO2 [Moles/Vol]37 mmol/LHigh22 - 32 mmol/L [facility] CenterCreatinine [Mass/Vol]1.16 mg/dL0.70 - 1.20 mg/dLOhioHealth Grant Medical CenterComment on above:METHOD TRACEABLE TO [facility] STANDARDeGFR (CKD-EPI)non-race mmwjtgpox28- [facility] CenterComment on above: Reported eGFR is based on the CKD-EPI 2020 equation that does not use a race coefficient. Glucose [Mass/Vol]111 mg/mHFhwi17 - 99 mg/dLSelect [facility]ty [facility] SystemPotassium [Moles/Vol]3.3 mmol/LLow3.5 - 5.0 mmol/[facility] SystemProtein [Mass/Vol]6.9 g/dL6.0 - 8.0 g/dLSelect [facility] SystemSodium [Moles/Vol]137 mmol/L134 - 146 mmol/[facility] SystemUrea nitrogen [Mass/Vol]23 mg/dL5 - 27 mg/dLOhioHealth Grant Medical CenterGlucose Glucometer (BldC) [Mass/Vol]on 95-49-8431Lpbgtsh [Mass/Vol]129 mg/uOLfci01 - 99 mg/dLOhioHealth Grant Medical Center Interpretation and review of laboratory resultsAbnormalMarshfield Medical Center/[facility] SystemMAGNESIUMon 46-96-3861Yossafabh [Mass/Vol]1.6 mg/dLLow 1.8-2.6[facility] HospitalComment on above:Performed By: #### CMP, [id number]- Mackenzie, CBCA ####[facility] ([id number])[address] [place] [address]Wrcbosedaey 22-32-9640Inzlznzit [Mass/Vol]1.6 mg/dLLow1.8 - 2.6 mg/dLOhioHealth Grant Medical CenterNo Panel Informationon 09-11-2023 Interpretation and review of laboratory resultsAbnormalLehigh Valley Hospital - PoconoCBC AND AUTO DIFFon 83-22-4490CUVFEZSK BASOPHIL0.0 X10E9/LNormal0.0-0.2PThe NeuroMedical Centerica [facility] Norris Jr. Cancer HospitalComment on above:Performed By: #### 54068-3, CBCA, CMP ####[facility] ([id number])[address] [place] [address] 56333NBGFWGQM NEUTROPHIL9.0 X10E9/LHigh1.5-6.6 [facility] HospitalComment on above:Performed By: #### 38501-7, CBCA, CMP ####[facility] ([id number])[address] [place] [address]Tanqqptpc/100 WBC (Bld)0.4 %NormalProMethodist Hospital AtascosaComment on above:Performed By: #### 26282-2, CBCA, CMP ####[facility] ([id number])[address] [place] [address]Ippgdsjlind (Bld) [#/Vol]0.1 10*3/uLNormal0.0-0.4[facility] Comment on above:Performed By: #### 72277-7, CBCA, CMP ####[facility] ([id number])[address] [place] [address]76 Eosinophils/100 WBC (Bld)0.6 %NormalGuernsey Memorial HospitalComment on above: Performed By: #### 31757-4, CBCA, CMP ####[facility] ([id number])[address] [place] [address]Vruzwkhuejj distribution width (RBC) [Ratio]16.9 %High11.5-15.0[facility] Comment on above:Performed By: #### 09001-7, CBCA, CMP ####[facility] ([id number])[address] [place] [address] 16781 Hematocrit (Bld) [Volume fraction]24.1 %Unr77-13VkcXksdmtGuernsey Memorial Hospital Comment on above:Performed By: #### 00417-8, CBCA, CMP ####[facility] ([id number])[address] [place] [address] 11613 Hemoglobin (Bld) [Mass/Vol]8.0 g/dLLow13.0-17.0[facility] HospitalComment on above:Performed By: #### 71579-0, CBCA, CMP ####[facility] ([id number])[address] [place] [address] 96901Jxmhrtgfmsl (Bld) [#/Vol]1.3 10*3/uLNormal1.0-3.5PThe NeuroMedical Centerica U[facility] Norris Jr. Cancer HospitalComment on above: Performed By: #### 28307-7, CBCA, CMP ####[facility] ([id number])[address] [place] [address] 17178Zwxvidefzwy/100 WBC (Bld)11.3 %NormalGuernsey Memorial HospitalComment on above:Performed By: #### 84570-3, CBCA, CMP ####[facility] ([id number])[address] [place] [address] 69294QTO (RBC) [Entitic mass]34.2 foXdxj76-61 [facility] Lagrange HospitalComment on above:Performed By: #### 41969-6, CBCA, CMP ####[facility] ([id number])[address] [place] [address] 90629MUMF (RBC) [Mass/Vol]33.2 g/yIMnbdlp39-02HezSdpocyGuernsey Memorial HospitalComment on above:Performed By: #### 87047-1, CBCA, CMP ####[facility] ([id number])[address] [place] [address] 02854URG (RBC) [Entitic vol]103 eVOeyn08-781AljKptjgzGuernsey Memorial HospitalCompontiac general hospital on above:Performed By: #### 98083-6, CBCA, CMP ####[facility] ([id number])[address] [place] [address] 13334Irzkmcceg (Bld) [#/Vol]0.7 10*3/uLNormal0-0.9[facility] HospitalCompontiac general hospital on above: Performed By: #### 62459-3, CBCA, CMP ####[facility] ([id number])[address] [place] [address] 25440Qychfjrwl/100 WBC (Bld)6.7 %NormalGuernsey Memorial HospitalCompontiac general hospital on above:Performed By: #### 85494-4, CBCA, CMP ####[facility] ([id number])[address] [place] [address] 59361Cxknbjnyjev/100 WBC (Bld)81.0 %Normal [facility] HospitalCompontiac general hospital on above:Performed By: #### 70936-0, CBCA, CMP ####[facility] ([id number])[address] [place] [address] 33483Moyyqybm mean volume (Bld) [Entitic vol]10.8 fLNormal7-12 [facility] HospitalComment on above:Performed By: #### 40279-2, CBCA, CMP ####[facility] ([id number])[address] [place] [address] 32529Xfqhgjrbo (Bld) [#/Vol]162 10*3/iXMerwjv574-445QrrLyqlyj [facility]ont HospitalComment on above:Performed By: #### 60835-1, CBCA, CMP ####[facility] ([id number])[address] [place] [address] 58394AUQ COUNT2.34 X10E12/LLow4.10-5.70ProMethodist Hospital AtascosaComment on above:Performed By: #### 97820-2, CBCA, CMP ####[facility] ([id number])[address] [place] [address] 76299PTA (Bld) [#/Vol]11.1 10*3/uLHigh4.0-11.0[facility] HospitalComment on above:Performed By: #### 12058-7, CBCA, CMP ####[facility] ([id number])[address] [place] [address] 43837EZR auto differentialon 96-36-4143Uhgiqqzoc (Bld) [#/Vol]0.0 10*3/uLMayo Memorial HospitalMedims Health SystemBasophils/100 WBC (Bld)0.4 %[facility]ar[facility] HospitaledicLake City Hospital and Clinic SystemEosinophils (Bld) [#/Vol]0.1 10*3/uLProMedims Health SystemEosinophils/100 WBC (Bld)0.6 %[facility]Medica Health SystemErythrocyte distribution width (RBC) [Ratio]16.9 %High11.5 - 15.0 %[facility]ica Health SystemHematocrit (Bld) [Volume fraction]24.1 %Low39 - 49 % [facility] Health SystemHemoglobin (Bld) [Mass/Vol]8.0 g/dLLow13.0 - 17.0 g/dL [facility] Health SystemInterpretation and review of laboratory resultsAbnormal [facility] Medical CenterLymphocytes (Bld) [#/Vol]1.3 10*3/uLOhioHealth Grant Medical CenterLymphocytes/100 WBC (Bld)11.3 %[facility] HospitalH (RBC) [Entitic mass]34.2 lrXckb82 - 34 pgPAdena Fayette Medical CenterMCHC (RBC) [Mass/Vol]33.2 g/dL 32 - 36 g/dLOhioHealth Grant Medical CenterMCV (RBC) [Entitic vol]103 dGKwtb49 - 100 fL [facility] Medical CenterMonocytes (Bld) [#/Vol]0.7 10*3/[facility] Monocytes/100 WBC (Bld)6.7 %[facility] Medical CenterNeutrophils (Bld) [#/Vol]9.0 10*3/uLHighOhioHealth Grant Medical CenterNeutrophils/100 WBC (Bld)81.0 %[facility] Medical CenterPlatelet mean volume (Bld) [Entitic vol]10.8 fL7 - 12 fLPAdena Fayette Medical CenterPlatelets (Bld) [#/Vol]162 10*3/[facility] Hospital-FlintRBC (Bld) [#/Vol]2.34 10*6/[facility] HospitalWBC corrected for nucl RBC Auto (Bld) [#/Vol]11.1HPenn Highlands HealthcareCOMPREHENSIVE METABOLIC PANELon 18-70-5045Xdmgbty [Mass/Vol]3.3 g/dLNormal3.2-5.3PSt. Vincent HospitalComment on above:Performed By: #### 09540-8, CBCA, CMP ####[facility] ([id number])[address] [place] [address] 33852OOU [Catalytic activity/Vol]82 U/SPqupzb73-569ZykSrdzfvGuernsey Memorial HospitalComment on above:Performed By: #### 05746-3, CBCA, CMP ####[facility] ([id number])[address] [place] [address] 93260DOR [Catalytic activity/Vol]16 U/LNormal0-40ProMethodist Hospital AtascosaComment on above:Performed By: #### 97856-7, CBCA, CMP ####[facility] ([id number])[address] [place] [address], [place] [address]Kvxfj gap [Moles/Vol]9 mmol/LNormal5-15ProMethodist Hospital AtascosaComment on above:Performed By: #### 79913-7, CBCA, CMP ####[facility] ([id number])[address] [place] [address], [place] [address]NGX [Catalytic activity/Vol]24 U/LNormal0-41[facility] Comment on above:Performed By: #### 92218-5, CBCA, CMP ####[facility] ([id number])[address] [place] [address], [place] [address] Bilirubin [Mass/Vol]0.5 mg/dLNormal0.3-1.2PSt. Vincent HospitalComment on above:Performed By: #### 58354-5, CBCA, CMP ####[facility] ([id number])[address] [place] [address], [place] [address]Uujzyxu [Mass/Vol]9.2 mg/dLNormal8.5-10.5PSt. Vincent HospitalComment on above: Performed By: #### 96583-1, CBCA, CMP ####[facility] ([id number])[address] [place] [address], [place] [address]Yqwckzae [Moles/Vol]94 mmol/AVwp35-599CdxWpeikcMethodist Hospital AtascosaComment on above: Performed By: #### 35052-9, CBCA, CMP ####[facility] ([id number])[address] [place] [address], [place] [address]YF3 [Moles/Vol]33 mmol/DIrma60-36RtwJjkxfySt. Vincent HospitalComment on above:Performed By: #### 55441-8, CBCA, CMP ####[facility] ([id number])[address] [place] [address] 61542Qgyyibzgya [Mass/Vol]1.26 mg/dLHigh0.70-1.20 ProMLanterman Developmental CenterComment on above:Result Comment: METHOD TRACEABLE TO IDMS STANDARDPerformed By: #### 03414-8, CBCA, CMP ####[facility] ([id number])[address] [place] [address] 55098QMC/1.73 sq M.predicted among non-blacks MDRD (S/P/Bld) [Vol rate/Area]59 mL/min/{1.73_m2} Low>59ProMethodist Hospital AtascosaComment on above:Result Comment: Reported eGFR is based on theCKD-EPI 2020 equation that doesnot use a race coefficient. Performed By: #### 65603-0, CBCA, CMP ####[facility] ([id number])[address] [place] [address] 20218Dzigfhl [Mass/Vol]122 mg/oPBbbn34-76AvbOeiyvpMethodist Hospital AtascosaComment on above:Performed By: #### 16863-0, CBCA, CMP ####[facility] ([id number])[address] [place] [address] 93200Oshyvymoj [Moles/Vol]4.0 mmol/LNormal 3.5-5.0ProMethodist Hospital AtascosaComment on above:Performed By: #### 13057-3MARVA, CMP ####[facility] ([id number])[address] [place] [address] 07854Ugkhgbu [Mass/Vol]7.7 g/dLNormal6.0-8.0ProMethodist Hospital AtascosaComment on above:Performed By: #### 06297-6, CBCA, CMP ####[facility] ([id number])[address] [place] [address] 45910Iqbeyl [Moles/Vol]136 mmol/ECamkey033-362VncQbcmbe [facility] HospitalComment on above:Performed By: #### 58698-4, CBCA, CMP ####[facility] ([id number])[address] [place] [address] 81863Fnhx nitrogen [Mass/Vol]23 mg/dLNormal5-27[facility] HospitalComment on above:Performed By: #### 25592-8, CBCA, CMP ####[facility] ([id number])[address] [place] [address] 77480Hanckrhjqhjcm metabolic panelon 73-80-2490Fikukbc [Mass/Vol]3.3 g/dL3.2 - 5.3 g/dLProUniversity Hospitals Health System SystemALP [Catalytic activity/Vol]82 U/L39 - 130 U/[facility] SystemALT No additional P-5'-P [Catalytic activity/Vol]16 U/L0 - 40 U/[facility] SystemAnion gap [Moles/Vol]9 mmol/L5 - 15 mmol/[facility] Health SystemAST [Catalytic activity/Vol]24 U/L0 - 41 U/[facility] SystemBilirubin [Mass/Vol]0.5 mg/dL0.3 - 1.2 mg/dLProUniversity Hospitals Health [facility] SystemCalcium [Mass/Vol]9.2 mg/dL8.5 - 10.5 mg/dLProUniversity Hospitals Health [facility] SystemChloride [Moles/Vol]94 mmol/LLow98 - 109 mmol/[facility] SystemCO2 [Moles/Vol]33 mmol/LHigh22 - 32 mmol/L [facility] CenterCreatinine [Mass/Vol]1.26 mg/dLHigh0.70 - 1.20 mg/dL [facility] CenterComment on above:METHOD TRACEABLE TO [facility] STANDARDeGFR (CKD-EPI)non-race eqgzyydhy16YcgCarilion Giles Memorial HospitalComment on above: Reported eGFR is based on the CKD-EPI 2020 equation that does not use a race coefficient. Glucose [Mass/Vol]122 mg/sTBuqm10 - 99 mg/dLOhioHealth Grant Medical Center Interpretation and review of laboratory resultsAbnoFirstHealth [facility] Potassium [Moles/Vol]4.0 mmol/L3.5 - 5.0 mmol/LProMedbaptist medical center east Health SystemProtein [Mass/Vol]7.7 g/dL6.0 - 8.0 g/dLSelect [facility] SystemSodium [Moles/Vol]136 mmol/L134 - 146 mmol/LProMedBarnesville Hospital SystemUrea nitrogen [Mass/Vol]23 mg/dL5 - 27 mg/dLOhioHealth Grant Medical CenterGlucose Glucometer (BldC) [Mass/Vol]on 00-18-5496Vudegrm [Mass/Vol]129 mg/nUWzht43-47ZugQltgbpGuernsey Memorial HospitalGlucose [Mass/Vol]112 mg/dNDyfa79-26XmoRnruuqOhioHealth Grant Medical CenterInterpretation and review of laboratory resultsAbnoKensington HospitalGlucose [Mass/Vol]119 mg/vNZnoq33 - 99 mg/dLOhioHealth Grant Medical CenterInterpretation and review of laboratory resultsAbnoKensington HospitalGlucose [Mass/Vol]119 mg/nJBcvp94-99ErhYgrgpxGuernsey Memorial HospitalMAGNESIUMon 90-21-0357Tyaeakqgv [Mass/Vol]2.0 mg/dLNormal1.8-2.6[facility] Comment on above:Performed By: #### 34395-9, CBCA, CMP ####[facility] ([id number])[address] [place] [address] 47878 Magnesiumon 61-07-4955Qzcloldir [Mass/Vol]2.0 mg/dL1.8 - 2.6 mg/dLOhioHealth Grant Medical CenterNo Panel Informationon 34-04-1920BkrPagpabAdena Fayette Medical CenterCBC AND AUTO DIFFon 86-70-4431GMDUMLOA BASOPHIL0.0 X10E9/LNormal0.0-0.2PSt. Vincent HospitalComment on above:Performed By: #### 88985-3, CMP, CBCA ####[facility] ([id number])[address] [place] [address] 73681STPZLBTN NEUTROPHIL4.7 X10E9/LNormal1.5-6.6[facility] Comment on above:Performed By: #### 96081-2, CMP, CBCA ####[facility] ([id number])[address] [place] [address] 56949 Basophils/100 WBC (Bld)0.1 %NormalProMethodist Hospital AtascosaComment on above: Performed By: #### 36371-1, CMP, CBCA ####[facility] ([id number])[address] [place] [address] 61221Fqztvtrbiou (Bld) [#/Vol]0.0 10*3/uLNormal0.0-0.4ProMethodist Hospital AtascosaComment on above: Performed By: #### 04932-4, CMP, CBCA ####[facility] ([id number])[address] [place] [address] 61115Yqalzeeogej/100 WBC (Bld)0.0 %NormalProMethodist Hospital AtascosaComment on above:Performed By: #### 53681-9, CMP, CBCA ####[facility] ([id number])[address] [place] [address] 10459Vygifreugie distribution width (RBC) [Ratio]16.8 %High11.5-15.0[facility] HospitalComment on above:Performed By: #### 97939-2, CMP, CBCA ####[facility] ([id number])[address] [place] [address] 72513Hvjrnbtjey (Bld) [Volume fraction]22.3 %Nkb93-60YocZxeanaMethodist Hospital AtascosaComment on above:Performed By: #### 79248-7, CMP, CBCA ####[facility] ([id number])[address] [place] [address] 35650Vgshbjiwgl (Bld) [Mass/Vol]7.3 g/dLLow13.0-17.0[facility] HospitalComment on above:Performed By: #### 75823-6, CMP, CBCA ####[facility] ([id number])[address] [place] [address] 49453Wssekhbbjsu (Bld) [#/Vol]0.5 10*3/uLLow1.0-3.5PSt. Vincent HospitalComment on above:Performed By: #### 50809-3, CMP, CBCA ####[facility] ([id number])[address] [place] [address] 41074Yezdrepahxu/100 WBC (Bld)9.2 %NormalProMethodist Hospital AtascosaComment on above:Performed By: #### 97486-0, CMP, CBCA ####[facility] ([id number])[address] [place] [address] 90659ILI (RBC) [Entitic mass]33.7 xjXgnowj72-81KgcTvncvxGuernsey Memorial HospitalComment on above:Performed By: #### 47689-2, CMP, CBCA ####[facility] ([id number])[address] [place] [address] 25103ZGGP (RBC) [Mass/Vol]32.8 g/fZExijuk94-53XpeIqkrehMethodist Hospital AtascosaComment on above: Performed By: #### 51795-4, CMP, CBCA ####[facility] ([id number])[address] [place] [address] 20941LEO (RBC) [Entitic vol]103 vLQkrq51-625QmdVqbeosGuernsey Memorial HospitalComment on above: Performed By: #### 26341-9, CMP, CBCA ####[facility] ([id number])[address] [place] [address] 14697Katvvcmyg (Bld) [#/Vol]0.2 10*3/uLNormal0-0.9[facility] HospitalComment on above: Performed By: #### 41379-8, CMP, CBCA ####[facility] ([id number])[address] [place] [address] 68101Yiqgqzxij/100 WBC (Bld)4.1 %NormalGuernsey Memorial HospitalComment on above:Performed By: #### 52500-5, CMP, CBCA ####[facility] ([id number])[address] [place] [address] 17581Aevdscihrgn/100 WBC (Bld)86.6 %Normal [facility] HospitalComment on above:Performed By: #### 44859-9, CMP, CBCA ####[facility] ([id number])[address] [place] [address] 22988Thuooybc mean volume (Bld) [Entitic vol]10.7 fLNormal7-12 [facility] HospitalComment on above:Performed By: #### 16712-1, CMP, CBCA ####[facility] ([id number])[address] [place] [address] 32016Popygfjvm (Bld) [#/Vol]136 10*3/vWEnr921-652CuhTevabuMethodist Hospital AtascosaComment on above:Performed By: #### 78530-0, CMP, CBCA ####[facility] ([id number])[address] [place] [address] 23433TGX COUNT2.17 X10E12/LLow4.10-5.70[facility] HospitalComment on above:Performed By: #### 20803-6, CMP, CBCA ####[facility] ([id number])[address] [place] [address] 33142BDU (Bld) [#/Vol]5.4 10*3/uLNormal4.0-11.0[facility] HospitalComment on above:Performed By: #### 65053-7, CMP, CBCA ####[facility] ([id number])[address] [place] [address] 39411QFF auto differentialon 01-21-6449Vubvbysbh (Bld) [#/Vol]0.0 10*3/uLSelect Medical Specialty [facility], Inc SystemBasophils/100 WBC (Bld)0.1 %[facility] SystemEosinophils (Bld) [#/Vol]0.0 10*3/uLSelect Medical Specialty [facility], [facility] SystemEosinophils/100 WBC (Bld)0.0 %[facility] SystemErythrocyte distribution width (RBC) [Ratio]16.8 %High11.5 - 15.0 %[facility]icL[facility] and Clinic SystemHematocrit (Bld) [Volume fraction]22.3 %Low39 - 49 % [facility] SystemHemoglobin (Bld) [Mass/Vol]7.3 g/dLLow13.0 - 17.0 g/dL [facility] SystemInterpretation and review of laboratory resultsAbnormal [facility] SystemLymphocytes (Bld) [#/Vol]0.5 10*3/uLLowSelect Medical Specialty Hospital [facility], [facility] SystemLymphocytes/100 WBC (Bld)9.2 %[facility] CenterMCH (RBC) [Entitic mass]33.7 pg27 - 34 pgPAdena Fayette Medical CenterMCHC (RBC) [Mass/Vol]32.8 g/dL32 - 36 g/dLOhioHealth Grant Medical CenterMCV (RBC) [Entitic vol]103 qYXecm55 - 100 fL [facility] Medical CenterMonocytes (Bld) [#/Vol]0.2 10*3/uLSelect Medical Specialty Hospital [facility], [facility] System Monocytes/100 WBC (Bld)4.1 %[facility] SystemNeutrophils (Bld) [#/Vol]4.7 10*3/uLSelect Medical Specialty [facility], [facility] SystemNeutrophils/100 WBC (Bld)86.6 %[facility] SystemPlatelet mean volume (Bld) [Entitic vol]10.7 fL7 - 12 fLPAdena Fayette Medical CenterPlatelets (Bld) [#/Vol]136 10*3/[facility] HospitalRBC (Bld) [#/Vol]2.17 10*6/[facility] HospitalWBC corrected for nucl RBC Auto (Bld) [#/Vol]5.4Tor[facility] State HospitalCOMPREHENSIVE METABOLIC PANELon 27-15-7115Hqxdgyt [Mass/Vol]2.9 g/dLLow3.2-5.3PSt. Vincent HospitalComment on above:Performed By: #### 00124-7, CMP, CBCA ####[facility] ([id number])[address] [place] [address] 90803WTE [Catalytic activity/Vol]85 U/PUbbzer06-494EezJubynkGuernsey Memorial HospitalComment on above:Performed By: #### 63548-5, CMP, CBCA ####[facility] ([id number])[address] [place] [address] 40061YDY [Catalytic activity/Vol]16 U/LNormal0-40[facility] HospitalComment on above:Performed By: #### 59043-2, CMP, CBCA ####[facility] ([id number])[address] [place] [address] 56223Lpfhp gap [Moles/Vol]9 mmol/LNormal5-15[facility] HospitalComment on above:Performed By: #### 24735-0, CMP, CBCA ####[facility] ([id number])[address] [place] [address] 79540UNV [Catalytic activity/Vol]23 U/LNormal0-41[facility] Comment on above:Performed By: #### 57236-8, CMP, CBCA ####[facility] ([id number])[address] [place] [address] 16980 Bilirubin [Mass/Vol]0.4 mg/dLNormal0.3-1.2PSt. Vincent HospitalComment on above:Performed By: #### 93791-8, EBONY, CBCA ####[facility] ([id number])[address] [place] [address], [place] [address]Qljraiv [Mass/Vol]8.8 mg/dLNormal8.5-10.5PSt. Vincent HospitalComment on above: Performed By: #### 54423-1, EBONY, CBCA ####[facility] ([id number])[address] [place] [address], [place] [address]Wpgugoyp [Moles/Vol]98 mmol/SNxldqv28-020WbyNapdqjMethodist Hospital AtascosaComment on above: Performed By: #### 72094-2, EBONY, CBCA ####[facility] ([id number])[address] [place] [address], [place] [address]MR5 [Moles/Vol]30 mmol/HBospor93-37KxfLpqfklSt. Vincent HospitalComment on above:Performed By: #### 15152-9, EBONY, CBCA ####[facility] ([id number])[address] [place] [address], [place] [address]Iuawkmynco [Mass/Vol]1.19 mg/dLNormal 0.70-1.20ProMethodist Hospital AtascosaComment on above:Result Comment: METHOD TRACEABLE TO IDMS STANDARDPerformed By: #### 12883-7, EBONY, CBCA ####[facility] ([id number])[address] [place] [address], [place] [address]OOL/1.73 sq M.predicted among non-blacks MDRD (S/P/Bld) [Vol rate/Area]64 mL/min/{1.73_m2}Normal>59ProMethodist Hospital AtascosaComment on above:Result Comment: Reported eGFR is based on theCKD-EPI 2020 equation that doesnot use a race coefficient.Performed By: #### 90583-8, EBONY, CBCA ####[facility] ([id number])[address] [place] [address], [place] [address]Umhshqs [Mass/Vol]153 mg/hIAild19-44OwyAbnlvuMethodist Hospital AtascosaComment on above:Performed By: #### 13883-9, CMP, CBCA ####[facility] ([id number])[address] [place] [address], [place] [address]Ouyvzmncc [Moles/Vol]3.8 mmol/LNormal 3.5-5.0ProMethodist Hospital AtascosaComment on above:Performed By: #### 08428-6, CMP, CBCA ####[facility] ([id number])[address] [place] [address], [place] [address]Odseiaa [Mass/Vol]7.0 g/dLNormal6.0-8.0ProMethodist Hospital AtascosaComment on above:Performed By: #### 26319-7, CMP, CBCA ####[facility] ([id number])[address] [place] [address], [place] [address]Ldeeph [Moles/Vol]137 mmol/FNixwqe421-169StsQengjw [facility]remont HospitalComment on above:Performed By: #### 70499-5, CMP, CBCA ####[facility] ([id number])[address] [place] [address] 04116Xcms nitrogen [Mass/Vol]15 mg/dLNormal5-27ProMethodist Hospital AtascosaComment on above:Performed By: #### 31326-1, CMP, CBCA ####[facility] ([id number])[address] [place] [address] [place] [address]Jrtogcxjmhbee metabolic panelon [id number] [Mass/Vol]2.9 g/dLLow3.2 - 5.3 g/dLProUniversity Hospitals [facility] SystemALP [Catalytic activity/Vol]85 U/L39 - 130 U/LProMedica University Hospitals [facility] SystemALT No additional P-5'-P [Catalytic activity/Vol]16 U/L0 - 40 U/[facility] SystemAnion gap [Moles/Vol]9 mmol/L5 - 15 mmol/[facility] SystemAST [Catalytic activity/Vol]23 U/L0 - 41 U/[facility] SystemBilirubin [Mass/Vol]0.4 mg/dL0.3 - 1.2 mg/dLOhioHealth Grant Medical CenterCalcium [Mass/Vol]8.8 mg/dL8.5 - 10.5 mg/dLOhioHealth Grant Medical CenterChloride [Moles/Vol]98 mmol/L98 - 109 mmol/[facility] SystemCO2 [Moles/Vol]30 mmol/L22 - 32 mmol/[facility] SystemCreatinine [Mass/Vol]1.19 mg/dL0.70 - 1.20 mg/dLOhioHealth Grant Medical CenterComment on above:METHOD TRACEABLE TO IDAL STANDARDeGFR (CKD-EPI)non-race kjzjottrr26- [facility] CenterComment on above: Reported eGFR is based on the CKD-EPI 2020 equation that does not use a race coefficient. Glucose [Mass/Vol]153 mg/oUYwpg66 - 99 mg/dLOhioHealth Grant Medical Center Interpretation and review of laboratory resultsAbDannemora State Hospital for the Criminally Insane Potassium [Moles/Vol]3.8 mmol/L3.5 - 5.0 mmol/[facility] SystemProtein [Mass/Vol]7.0 g/dL6.0 - 8.0 g/dLNovant Health New Hanover Regional Medical Centerodium [Moles/Vol]137 mmol/L134 - 146 mmol/[facility]itan HospitalUrea nitrogen [Mass/Vol]15 mg/dL5 - 27 mg/dLOhioHealth Grant Medical CenterGlucose Glucometer (BldC) [Mass/Vol]on [id number] [Mass/Vol]162 mg/sLFafs33 - 99 mg/dLOhioHealth Grant Medical Center Interpretation and review of laboratory resultsAbMarshfield Medical Center/Hospital Eau ClaireGlucose [Mass/Vol]162 mg/fEVoyh12-47RawUwtwszGuernsey Memorial HospitalGlucose [Mass/Vol]150 mg/dOMozm32 - 99 mg/dLOhioHealth Grant Medical Center Interpretation and review of laboratory resultsAbMarshfield Medical Center/Hospital Eau ClaireGlucose [Mass/Vol]150 mg/uHDyvp85-56CopOdqchrGuernsey Memorial HospitalGlucose [Mass/Vol]271 mg/sSOslp46 - 99 mg/dLOhioHealth Grant Medical Center Glucose [Mass/Vol]325 mg/tLUnwn34 - 99 mg/dLProUniversity [facility] SystemGlucose [Mass/Vol]176 mg/uFLhjc21 - 99 mg/dLOhioHealth Grant Medical CenterInterpretation and review of laboratory resultsAbnormAspirus Riverview [facility] and Clinics SystemGlucose [Mass/Vol]177 mg/kHGbdc13 - 99 mg/dLSelect [facility]ty [facility] SystemGlucose [Mass/Vol]195 mg/nVUali32 - 99 mg/dLOhioHealth Grant Medical CenterInterpretation and review of laboratory resultsAbnoFroedtert Menomonee Falls [facility]– [place] SystemGlucose [Mass/Vol]195 mg/eEHgpm27-29CncLlepmkGuernsey Memorial HospitalGlucose [Mass/Vol]176 mg/jGFlsj42-35YwkVzlhnoGuernsey Memorial HospitalMAGNESIUMon 09-09-2023 Magnesium [Mass/Vol]2.5 mg/dLNormal1.8-2.6Guernsey Memorial HospitalComment on above:Performed By: #### 96424-7, CMP, CBCA ####[facility] ([id number])[address] [place] [address]Wmextyrgdso [id number] [Mass/Vol]2.5 mg/dL1.8 - 2.6 mg/dLOhioHealth Grant Medical CenterNo Panel Informationon 70-50-0437DccQuukwy Health SystemPOTASSIUMon 09-09-2023 Potassium [Moles/Vol]4.7 mmol/LNormal3.5-5.0Guernsey Memorial HospitalComment on above:Performed By: #### 2823-3 ####[facility] ([id number])[address] [place] [address] 67176Qnnsnndsr [Moles/Vol]3.6 mmol/L Normal3.5-5.0Guernsey Memorial HospitalComment on above:Performed By: #### 2823- 3 ####[facility] ([id number])[address] [place] [address] 89066Smdfjchjyay 88-88-3665Myxjenabu [Moles/Vol]4.7 mmol/L3.5 - 5.0 mmol/LProMedica Health SystemPotassium [Moles/Vol]3.6 mmol/L3.5 - 5.0 mmol/L [facility]ica Health SystemPotassium [Moles/Vol]on 72-01-4998MikTdposj Health System Pro[facility]ica Health SystemCBC AND AUTO DIFFon 83-40-1501GSXPSQRP BASOPHIL0.0 X10E9/LNormal0.0-0.2PSt. Vincent HospitalComment on above:Performed By: #### MARVA, 13581-9, CMP, 78121-3, 66022-7 ####[facility] ([id number])[address] [place] [address] 93666MUEUFIIJ NEUTROPHIL3.8 X10E9/LNormal1.5-6.6ProMethodist Hospital AtascosaComment on above: Performed By: #### MARVA, 60195-3, CMP, 42572-9, 11303-3 ####[facility] ([id number])[address] [place] [address] 63075 Basophils/100 WBC (Bld)0.6 %NormalProMethodist Hospital AtascosaComment on above: Performed By: #### MARVA, 91461-1, CMP, 43014-0, 48112-8 ####[facility] ([id number])[address] [place] [address] 06583 Eosinophils (Bld) [#/Vol]0.2 10*3/uLNormal0.0-0.4[facility] Comment on above:Performed By: #### MARVA, 14664-0, CMP, 62941-6, 88015-1 ####[facility] ([id number])[address] [place] [address] 14011Gypkrhrwmwi/100 WBC (Bld)3.0 %NormalProMethodist Hospital AtascosaComment on above:Performed By: #### CBCRachel, 94224-0, CMP, 61492-9, 05384-3 ####[facility] ([id number])[address] [place] [address] 34377Sirsnnwwteg distribution width (RBC) [Ratio]17.8 %High 11.5-15.0ProMethodist Hospital AtascosaComment on above:Performed By: #### MARVA, 72426-2, CMP, 20072-7, 95737-4 ####[facility] ([id number])[address] [place] [address] 79435Mbspiopikf (Bld) [Volume fraction]23.4 %Gqj52-71PpkQdlficMethodist Hospital AtascosaComment on above:Performed By: #### MARVA, 74118-3, CMP, 52114-2, 24571-2 ####[facility] ([id number])[address] [place] [address] 79175Ebubpoagtu (Bld) [Mass/Vol]7.6 g/dLLow13.0-17.0Guernsey Memorial HospitalComment on above: Performed By: #### MARVA, 40927-7, CMP, 28007-5, 98223-4 ####[facility] ([id number])[address] [place] [address] 82002 Lymphocytes (Bld) [#/Vol]1.0 10*3/uLNormal1.0-3.5PThe NeuroMedical Centerica [facility] Comment on above:Performed By: #### CBCRachel, 13247-6, CMP, 91827-9, 84543-0 ####[facility] ([id number])[address] [place] [address] 88690Lajagbraxje/100 WBC (Bld)18.9 %NormalProMethodist Hospital AtascosaComment on above:Performed By: #### CBCA, 64523-7, CMP, 20864-8, 96226-7 ####[facility] ([id number])[address] [place] [address] 18974ETD (RBC) [Entitic mass]34.0 utBnvwly84-34FwsGlqvwjMethodist Hospital AtascosaComment on above:Performed By: #### CBCA, 34682-8, CMP, 55113-3, 66379-4 ####[facility] ([id number])[address] [place] [address] 03548YRPA (RBC) [Mass/Vol]32.6 g/cCNizakf23-30JkdOarxcfMethodist Hospital AtascosaComment on above:Performed By: #### CBCRachel, 91754-8, CMP, 21536-4, - ####[facility] ([id number])[address] [place] [address] 11075MLQ (RBC) [Entitic vol]104 xXDvkz67-481DrwZawuiaGuernsey Memorial HospitalComment on above:Performed By: #### CBCRachel, 30579-4, CMP, 49632-3, 84105-5 ####[facility] ([id number])[address] [place] [address] 50641Oqghihvnv (Bld) [#/Vol]0.4 10*3/uLNormal0-0.9Guernsey Memorial HospitalComment on above:Performed By: #### CBCA, 77625-6, CMP, 60074-4, 17976-1 ####[facility] ([id number])[address] [place] [address] 65308Kaumvvdxa/100 WBC (Bld)8.1 %NormalProMethodist Hospital AtascosaComment on above:Performed By: #### CBCA, 17512-8, CMP, 13729-8, 66174-7 ####[facility] ([id number])[address] [place] [address] 02481Beyzqxsrplo/100 WBC (Bld)69.4 %NormalProMethodist Hospital AtascosaComment on above:Performed By: #### CBCA, 68198-1, CMP, 81398-4, 93270-0 ####[facility] ([id number])[address] [place] [address] 30482Wosrbdlb mean volume (Bld) [Entitic vol]10.4 fLNormal7-12 Gu[facility] Memorial HospitalComment on above:Performed By: #### CBCA, 03248-0, CMP, 10031-4, 25477-3 ####[facility] ([id number])[address] [place] [address] 97305Jrtodqdas (Bld) [#/Vol]144 10*3/tRJnv359-922 [facility] HospitalComment on above:Performed By: #### CBCA, 29793-4, CMP, 22416-1, 92420-3 ####[facility] ([id number])[address] [place] [address] 43761DQF COUNT2.25 X10E12/LLow4.10-5.70Guernsey Memorial HospitalComment on above:Performed By: #### CBCA, 96114-1, CMP, 52237-7, 76626-7 ####[facility] ([id number])[address] [place] [address] 80675FGF (Bld) [#/Vol]5.4 10*3/uLNormal4.0-11.0Gu[facility] Memorial HospitalCompontiac general hospital on above:Performed By: #### CBCA, 97121-5, CMP, 21332-8, 79856-8 ####[facility] ([id number])[address] [place] [address] 66245AJH auto differentialon 61-12-2692Oertakwtk (Bld) [#/Vol] 0.0 10*3/uLOhioHealth Grant Medical CenterBasophils/100 WBC (Bld)0.6 %[facility] Grant Medical CenterEosinophils (Bld) [#/Vol]0.2 10*3/uLOhioHealth Grant Medical CenterEosinophils/100 WBC (Bld)3.0 %[facility] Grant Medical CenterErythrocyte distribution width (RBC) [Ratio]17.8 %High11.5 - 15.0 %[facility] Grant Medical CenterHematocrit (Bld) [Volume fraction]23.4 %Low39 - 49 %[facility] Grant Medical CenterHemoglobin (Bld) [Mass/Vol]7.6 g/dLLow13.0 - 17.0 g/dLOhioHealth Grant Medical CenterInterpretation and review of laboratory resultsAbnormProtestant HospitalLymphocytes (Bld) [#/Vol]1.0 10*3/[facility] Hospital-FlintLymphocytes/100 WBC (Bld)18.9 %[facility] Grant Medical CenterMCH (RBC) [Entitic mass]34.0 pg27 - 34 [facility] HospitalMCHC (RBC) [Mass/Vol]32.6 g/dL32 - 36 g/dLOhioHealth Grant Medical CenterMCV (RBC) [Entitic vol]104 nKOiqh83 - 100 [facility] CenterMonocytes (Bld) [#/Vol]0.4 10*3/uL [facility] CenterMonocytes/100 WBC (Bld)8.1 %[facility] Neutrophils (Bld) [#/Vol]3.8 10*3/uLOhioHealth Grant Medical CenterNeutrophils/100 WBC (Bld)69.4 %[facility] Grant Medical CenterPlatelet mean volume (Bld) [Entitic vol]10.4 fL7 - 12 [facility] Medical CenterPlatelets (Bld) [#/Vol]144 10*3/uLOhioHealth Nelsonville Health CenterRBC (Bld) [#/Vol]2.25 10*6/[facility] HospitalWBC corrected for nucl RBC Auto (Bld) [#/Vol]5.4Torrance State HospitalCOMPREHENSIVE METABOLIC PANELon 73-73-9019Vhbvuix [Mass/Vol]3.0 g/dLLow3.2-5.3PSt. Vincent HospitalComment on above:Performed By: #### MARVA, 67470-2, CMP, 70643-4, 50021-5 ####[facility] ([id number])[address] [place] [address], [place] [address]NAT [Catalytic activity/Vol]91 U/ZHqepgw17-681UwlBzpfjcMethodist Hospital AtascosaComment on above: Performed By: #### MARVA, 75441-5, CMP, 44477-4, 24816-6 ####[facility] ([id number])[address] [place] [address] 19732BKM [Catalytic activity/Vol]15 U/LNormal0-40ProMethodist Hospital AtascosaComment on above:Performed By: #### MARVA, 57387-5, CMP, 98254-1, 65751-3 ####[facility] ([id number])[address] [place] [address] 49794Jxddc gap [Moles/Vol]5 mmol/LNormal5-15Gu[facility] Memorial HospitalComment on above:Performed By: #### MARVA, 71004-4, CMP, 31304-5, 89526-6 ####[facility] ([id number])[address] [place] [address] [place] [address]LVO [Catalytic activity/Vol]22 U/LNormal0-41[facility] on above:Performed By: #### MARVA, 04435-8, CMP, 06137-8, 84079-6 ####[facility] ([id number])[address] [place] [address] [place] [address]Iozzkomyv [Mass/Vol]0.6 mg/dLNormal0.3-1.2PSt. Vincent HospitalComment on above:Performed By: #### MARVA, 66446-5, CMP, 30255-7, 03317-2 ####[facility] ([id number])[address] [place] [address] 87870Iudovpo [Mass/Vol]8.3 mg/dLLow8.5-10.5PSt. Vincent HospitalComment on above:Performed By: #### MARVA, 91956-6, CMP, 61983-8, 38302-4 ####[facility] ([id number])[address] [place] [address], [place] [address]Juuqotfm [Moles/Vol]101 mmol/DOttzcw81-331JoeEacyasMethodist Hospital AtascosaComment on above:Performed By: #### MARVA, 11604-2, CMP, 36197-7, ####[facility] ([id number])[address] [place] [address] 16289PL8 [Moles/Vol]29 mmol/KUlqsyi24-50SqrCzioumSt. Vincent HospitalComment on above:Performed By: #### MARVA, 62726-4, CMP, 63720-8, 64334-3 ####[facility] ([id number])[address] [place] [address] 89355Rbnhtnmxjl [Mass/Vol]0.96 mg/dLNormal0.70-1.20ProMethodist Hospital AtascosaComment on above:Result Comment: METHOD TRACEABLE TO IDMS STANDARDPerformed By: #### MARVA, 56503-1, CMP, 76989-6, 16118-0 ####[facility] ([id number])[address] [place] [address] 78877QBV/1.73 sq M.predicted among non-blacks MDRD (S/P/Bld) [Vol rate/Area]82 mL/min/{1.73_m2}Normal>59ProMethodist Hospital AtascosaComment on above:Result Comment: Reported eGFR is based on theCKD-EPI 2021 equation that doesnot use a race coefficient.Performed By: #### MARVA, 51906-3, CMP, 24190-1, 76527-6 ####[facility] ([id number])[address] [place] [address], [place] [address]Avlycyb [Mass/Vol]130 mg/fECxdi97-59PpwMtkmalMethodist Hospital AtascosaComment on above:Performed By: #### MARVA, 29429-8, CMP, 41584-0, 68254-0 ####[facility] ([id number])[address] [place] [address] 45172Hijheauod [Moles/Vol]3.7 mmol/LNormal3.5-5.0ProMethodist Hospital AtascosaComment on above:Performed By: #### MARVA, 42586-5, EBONY, 96585-8, ####[facility] ([id number])[address] [place] [address] 09411Csadmwe [Mass/Vol]7.0 g/dLNormal6.0-8.0ProMethodist Hospital AtascosaComment on above:Performed By: #### MARVA, 08318-7, CMP, 41780-6, ####[facility] ([id number])[address] [place] [address] 50272Dlzyyf [Moles/Vol]135 mmol/WSrfhqm869-439ZtnJkieoe Fremont HospitalComment on above:Performed By: #### MARVA, 62773-6, CMP, 80693-3, - ####[facility] ([id number])[address] [place] [address] 59842Peoi nitrogen [Mass/Vol]12 mg/dLNormal5-27ProMethodist Hospital AtascosaComment on above:Performed By: #### MARVA, 61457-8, CMP, 58137-0, 04564-7 ####[facility] ([id number])[address] [place], [place] [address]Zpdecuc echo study Procedureon 43-05-0076Zzsx EF Estimated 59 %[facility] OirciyWS96 %[facility] ZctkwcDB97 %28 - 44 %[facility]ica Health SystemInterventricular Septum Diastolic Thickness by [id number] [facility] Health SystemIVS0.94 cm0.6 - 1.1 cmPMary Bird Perkins Cancer Center Health SystemLeft Ventricle [id number] gProMedica Health SystemLV Diastolic Volume 73.50 mLProMedica Health SystemLV RWT 2D33.92ProMedica Health SystemLV Systolic Dvtxby77.80 mLProMedica Health SystemLVIDd5.23 cm4.95 - 6.87 cmPThe NeuroMedical Centerica Health SystemLVIDs3.16 cm2.91 - 4.40 [facility]ica Health SystemPW0.89 cm0.6 - 1.1 cm [facility] Hospitaledica Health SystemZLVIDD-1.09ProMedica Health SystemZLVIDS-0.98Pro[facility]ica Health SystemLeft Ventricle: Left ventricle appears normal in size. Wall thickness is normal. Systolic function is normal with an ejection fraction of 55-60%. See wall score diagram for wall motion abnormalities. Pericardium: There is pleural effusion. The study had technical difficulties. The study was difficult due to patient's body habitus and poor acoustic windows. Left Ventricle Left ventricle appears normal in size. Wall thickness is normal. Systolic function is normal with an ejection fraction of 55-60%. See wall score diagram for wall motion abnormalities. Pericardium There is pleural effusion. Study Details A limited echo was performed using limited 2D and limited left ventricle function/wall motion. Definity study was performed. The study had technical difficulties. The study was difficult due to patient's body habitus and poor acoustic windows. Wall Scoring Baseline Score Index: 1.18 The following segments are hypokinetic: apical septal, apical inferior and apex. All other segments are normal.XCELERASelect Medical Specialty [facility] Rock'n Rover SystemRadiology Study observation (narrative)[facility] SystemComprehensive metabolic panelon 06-73-4864Mywecei [Mass/Vol]3.0 g/dLLow3.2 - 5.3 g/dLProRegional Medical CenterThermal Nomad SystemALP [Catalytic activity/Vol]91 U/L39 - 130 U/[facility] SystemALT No additional P-5'-P [Catalytic activity/Vol]15 U/L0 - 40 U/[facility] SystemAnion gap [Moles/Vol]5 mmol/L5 - 15 mmol/[facility] Hospitalica Health SystemAST [Catalytic activity/Vol]22 U/L0 - 41 U/[facility] SystemBilirubin [Mass/Vol]0.6 mg/dL0.3 - 1.2 mg/dLSelect [facility] Special[facility], Inc SystemCalcium [Mass/Vol]8.3 mg/dLLow8.5 - 10.5 mg/dLSelect Medical Specialty [facility], Inc SystemChloride [Moles/Vol]101 mmol/L98 - 109 mmol/[facility] SystemCO2 [Moles/Vol]29 mmol/L22 - 32 mmol/L [facility] CenterCreatinine [Mass/Vol]0.96 mg/dL0.70 - 1.20 mg/dLOhioHealth Grant Medical CenterComment on above:METHOD TRACEABLE TO IDAL STANDARDeGFR (CKD-EPI)non-race osnhgholq65- [facility] CenterComment on above: Reported eGFR is based on the CKD-EPI 2020 equation that does not use a race coefficient. Glucose [Mass/Vol]130 mg/oHBeci09 - 99 mg/dLSelect Medical Specialty Hospital [facility], Inc SystemPotassium [Moles/Vol]3.7 mmol/L3.5 - 5.0 mmol/[facility] SystemProtein [Mass/Vol] 7.0 g/dL6.0 - 8.0 g/dLSelect Medical Specialty [facility], Inc SystemSodium [Moles/Vol]135 mmol/L134 - 146 mmol/[facility] SystemUrea nitrogen [Mass/Vol]12 mg/dL5 - 27 mg/dL [facility] Medical CenterECG 12 leadon 99-28-1603JOLJSQKOFBEAPXCneWntilo Health SystemGlucose Glucometer (BldC) [Mass/Vol]on 96-17-8679Upxedbo [Mass/Vol]325 mg/fSUsjk37-47OmnKucpcfGuernsey Memorial HospitalGlucose [Mass/Vol]271 mg/nBKtib31-97 [facility] HospitalGlucose [Mass/Vol]177 mg/nCDwum86-03JhuYcbzyyGuernsey Memorial HospitalMAGNESIUMon 70-89-2412Bhqfqtrym [Mass/Vol]1.5 mg/dLLow1.8-2.6Gu[facility] Memorial HospitalCompontiac general hospital on above:Performed By: #### 08885-5 ####[facility] ([id number])[address] [place] [address] 48292 Magnesium [Mass/Vol]1.5 mg/dLLow1.8-2.6Gu[facility] Memorial HospitalCompontiac general hospital on above:Performed By: #### MARVA, 47642-4, CMP, 92444-4, 49584-3 ####[facility] ([id number])[address] [place] [address] 11375Ljlvuzdkgsm 38-58-1023Rdschdnbe [Mass/Vol]1.5 mg/dLLow1.8 - 2.6 mg/dL [facility] SystemMagnesium [Mass/Vol]1.5 mg/dLLow1.8 - 2.6 mg/dLSelect Medical Specialty Hospital [facility], Inc SystemMagnesium [Mass/Vol]on 37-40-9838Asyrsczjmilbkh and review of laboratory resultsAbnoFroedtert [facility]om[facility] [place] [facility] Natriuretic peptide B [Mass/Vol]on 92-27-3197Psawhwowimcfbr and review of laboratory resultsAbDannemora State Hospital for the Criminally InsaneNatriuretic peptide B (Bld) [Mass/Vol]518 pg/mLHighNINF - 100.0 pg/mLAurora Medical Center-Washington County SystemNatriuretic peptide B (Bld) [Mass/Vol]518 pg/mLHigh<100.0[facility] on above:Performed By: #### MARVA, 40031-4, CMP, 34183-6, 56919-3 ####[facility] ([id number])[address] [place] [address] 01276Pt Panel Informationon 05-96-7158Qwkznvvkkelfiu and review of laboratory resultsAbConemaugh Nason Medical Center Troponin I, High Sensitivityon 34-64-8887Vvwyarlo I.cardiac High sensitivity method [Mass/Vol]12 ng/LNINF - 21 ng/LProMedica Health SystemTroponin I, High Sensitivity 1 Houron 14-83-8872Ykoptvmd I.cardiac High sensitivity method [Mass/Vol]12 ng/LNINF - 21 ng/LProMedica Health SystemTroponin I.cardiac High sensitivity method [Mass/Vol]on 20-47-6684IksEinapt Health System1 HOUR TROP I, HIGH SJRZMMSXNAA35 ng/LNormal<21ProMethodist Hospital AtascosaComment on above: Performed By: #### 15604-4 ####[facility] ([id number])[address] [place] [address] 73245IsaOlfmvc Health SystemTROPONIN I, HIGH BUAIRVRLVGV56 ng/LNormal<21ProMethodist Hospital AtascosaComment on above:Performed By: #### CBCA, 35399-6, CMP, 84979-4, 59247-2 ####[facility] ([id number])[address] [place] [address] 57425ZQ CHEST 1 VWon 76-63-2504SI CHEST 1 VWNormalGuernsey Memorial HospitalXR Chest Single viewon 85-98-5114DANETBO AND/OR TECH NOTES SOB Difficulty breathing Chest pain PROCEDURE AP chest COMPARISON July 23 FINDINGS Sternal wires There is cardiomediastinal prominence There is increased hilar fullness and congestion There is left greater than right pleural effusion There are granular opacities bilaterally There is suggestion of asymmetric left basilar volume loss and consolidation No visible pneumothorax or apical cavitary process IMPRESSION: Tlqi-me-ociprrae CHF with pleural effusions greater on the left There appears to be asymmetric left basilar consolidation and volume loss. Correlate for pneumonia or aspiration clinically Suggest follow-up imaging to document clearing and normalization when appropriate CT should be considered if x-ray findings or symptoms persist Finalized by Pa Peres MD on 09/08/2023 9:47 Pa Burch MD - 09/08/2023 HISTORY AND/OR TECH NOTES SOB Difficulty breathing Chest pain PROCEDURE AP chest COMPARISON July 23 FINDINGS Sternal wires There is cardiomediastinal prominence There is increased hilar fullness and congestion There is left greater than right pleural effusion There are granular opacities bilaterally There is suggestion of asymmetric left basilar volume loss and consolidation No visible pneumothorax or apical cavitary process IMPRESSION: Dlyb-lc-rhvjtrmb CHF with pleural effusions greater on the left There appears to be asymmetric left basilar consolidation and volume loss. Correlate for pneumonia or aspiration clinically Suggest follow-up imaging to document clearing and normalization when appropriate CT should be considered if x-ray findings or symptoms persist Finalized by Pa Peres MD on 09/08/2023 9:47 AM Samaritan HospitalSensible Medical Innovations Select Specialty HospitalRadiology Study observation (narrative)Samaritan HospitalExodus Payment SystemsXR Chest Single viewOrdered By: Pa Peres on 75-28-6333SpvOzhsroAdena Fayette Medical Center Work Phone: Alanine aminotransferase [Enzymatic activity/volume] in Serum or PlasmaOrdered By: Melanie Taylor on 64-16-6564OCI [Catalytic activity/Vol]10 U/LNormal7-52Children'S Hospital Of ColumbusComment on above: Performed By: #### CMP, CBC #### [place] [address] USAAlbumin [Mass/volume] in Serum or Plasma by Bromocresol green (BCG) dye binding methoOrdered By: Melanie Taylor on 87-68-2719Epnurdb BCG dye [Mass/Vol]3.4 g/dL3.5-5.7FThe MetroHealth SystemAlkaline phosphatase [Enzymatic activity/volume] in Serum or PlasmaOrdered By: Melanie Taylor on 35-29-4630YGV [Catalytic activity/Vol]76 U/SJidhza35-729HbhypagzwChildren'S Hospital Of ColumbusComment on above:Performed By: #### CMP, CBC #### [place] [address] USAAspartate aminotransferase [Enzymatic activity/volume] in Serum or PlasmaOrdered By: Melanie Claudia on 52-11-1040UUK [Catalytic activity/Vol]17 U/QReoyix53-29ZlymbjtpyChildren'S Hospital Of ColumbusComment on above: Performed By: #### CMP, CBC #### [place] [address] USAAutomated basophil %Ordered By: Melanie Taylor on 58-59-6648Xshzlrgjm/100 WBC (Bld)1.0 %Normal.[facility] Comment on above:Performed By: #### CMP, CBC #### [place] [address] USAAutomated basophil countOrdered By: Melanie Taylor on 60-45-7382Ykcqvzevk (Bld) [#/Vol]0.1 10*3/uLNormal0.0-0.2FThe MetroHealth SystemComment on above:Result Comment: PERFORMED BY: [place] [address] PATHOLOGIST BACK ORDER CLERK EDIL LEMUS M.D.Performed By: #### CMP, CBC #### [place] [address] USAAutomated blood monocyte countOrdered By: Melanie Taylor on 14-71-2871Nytaucnyd (Bld) [#/Vol]0.5 10*3/uLNormal0.0-0.8Children'[facility] Hospital Of ColumbusComment on above:Performed By: #### CMP, CBC #### [place] [address] USAAutomated eosinophil %Ordered By: Melanie Taylor on 49-96-8608Ovlyaexhoyv/100 WBC (Bld)3.7 %Normal.[facility] Comment on above:Performed By: #### CMP, CBC #### [place] [address] USAAutomated eosinophil countOrdered By: Melanie Taylor on 91-09-4175Cojpvhaaapr (Bld) [#/Vol]0.2 10*3/uLNormal0.0-0.45Children[facility] Hospital Of ColumbusComment on above:Performed By: #### CMP, CBC #### [place] [address] USAAutomated monocyte %Ordered By: Melanie Taylor on 87-97-2435Jelnaygnr/100 WBC (Bld)9.4 %Normal.[facility] Comment on above:Performed By: #### CMP, CBC #### [place] [address] USAAutomated neutrophil %Ordered By: Melanie Taylor on 78-24-1735Smadbafzmvw/100 WBC (Bld)72.9 %Normal.[facility] Hospital Of ColumbusComment on above:Performed By: #### CMP, CBC #### [place] [address] USABilirubin.total [Mass/volume] in Serum or PlasmaOrdered By: Melanie Taylor on 75-22-1285Pznxbvpqo [Mass/Vol]0.5 mg/dLNormal0.3-1.0 [facility] Of ColumbusComment on above:Performed By: #### CMP, CBC #### [place] [address] USACalcium [Mass/volume] in Serum or PlasmaOrdered By: Melanie Taylor on 22-68-6994Ifmailz [Mass/Vol]9.4 mg/dLNormal8.6-10.3FThe MetroHealth SystemComment on above:Performed By: #### CMP, CBC #### [place] [address] USACapillary blood glucose measurement by glucometer (mass/volume)Ordered By: Melanie Taylor on 59-85-1251Jobibiq [Mass/Vol]125 mg/dL [facility]ima City HospitalComment on above:Random Glucose Reference Range is dependent on time and content of last meal. Glucose of more than 200 mg/dL in a nonstressed, ambulatory subject supports the diagnosis of Diabetes Mellitus.Result Comment: Random Glucose Reference Range is dependent on time and content of last meal. Glucose of more than 200 mg/dL in a nonstressed, ambulatory subject supports the diagnosis of Diabetes Mellitus. PERFORMED BY: [place] [address] PATHOLOGIST BACK ORDER CLERK EDIL LEMUS M.D.Performed By: #### HS TROP, CK #### [place] [address] USACarbon dioxide, total [Moles/volume] in Serum or Plasma Ordered By: Melanie Taylor on [id number] [Moles/Vol]35.9 mmol/LHigh21.0-31.0 [facility] ColumbusComment on above:Performed By: #### CMP, CBC #### [place] [address] USAChloride [Moles/volume] in Serum or PlasmaOrdered By: Melanie Taylor on [id number] [Moles/Vol]98 mmol/CVphdqx57-423OkqilecxnChildren'S Hospital Of ColumbusComment on above:Performed By: #### CMP, CBC #### [place] [address] USAComplete Blood Count Auto Diffon [id number] Corpuscular HGB Conc32.9 g/tNAhobnf98.5-35.6[facility] Physician GroupComment on above:Performed By: #### CMP, CBC #### [place] [address] USANRBC%0.2 /100{WBC}Normal0-0.5[facility] Comment on above:Performed By: #### CMP, CBC #### [place] [address] USAComprehensive Metabolic Panelon 42-60-2000Kydccmt [Mass/Vol]3.4 g/dLLow3.5-5.7[facility] Physician GroupComment on above: Performed By: #### CMP, CBC #### [place] [address] USACreatinine Clr Calc Hpjjevdy10.91NormalThBonner General Hospital Physician [facility] Mississippi Medical CenterComment on above:Result Comment: PERFORMED BY: [place] [address] PATHOLOGIST BACK ORDER CLERK EDIL LEMUS M.D.Performed By: #### CMP, CBC #### [place] [address] USAGFR/1.73 sq M.predicted MDRD (S/P/Bld) [Vol rate/Area] 56.765 mL/min/{1.73_m2}NormalThe [facility] Physician [facility] CenterComment on above: Performed By: #### CMP, CBC #### [place] [address] USACreatinine [Mass/volume] in Serum or PlasmaOrdered By: Melanie Taylor on 86-66-5392Eqtxxrjggz [Mass/Vol]1.31 mg/dLHigh0.70-1.30 [facility] ColumbusComment on above:Performed By: #### CMP, CBC #### [place] [address] USAErythrocyte distribution width [Ratio] by Automated count Ordered By: Melanie Taylor on 98-83-6103Djcbdhiabnf distribution width (RBC) [Ratio]15.5 %High12.0-14.8[facility] Hospital Of ColumbusComment on above: Performed By: #### CMP, CBC #### [place] [address] USAErythrocytes [#/volume] in Blood by Automated countOrdered By: Melanie Taylor on 92-77-2700PJT (Bld) [#/Vol]2.52 10*6/uLLow3.90-5.60 [facility] Of ColumbusComment on above:Performed By: #### CMP, CBC #### [place] [address] USAGlucose Poct Glucometerson 10-17-5591Slmxewc [Mass/Vol]118 mg/dLNoUNC Health Physician GroupComment on above:Result Comment: Random Glucose Reference Range is dependent on time and content of last meal. Glucose of more than 200 mg/dL in a nonstressed, ambulatory subject supports the diagnosis of Diabetes Mellitus. PERFORMED BY: [place] [address] PATHOLOGIST BACK ORDER CLERK EDIL LEMUS M.D.Performed By: #### HS TROP, CK #### [place] [address] USAGlucose [Mass/volume] in Serum or PlasmaOrdered By: Melanie Taylor on 75-89-2081Pjcxvzb [Mass/Vol]112 mg/hICrzh04-257XzlhmryzfChildren'S Hospital Of ColumbusComment on above:ADA recommended reference rangeRandom Glucose Reference Range is dependent on time and content of last meal. Glucose of more than 200 mg/dL in a nonstressed, ambulatory subject supports the diagnosisof Diabetes Mellitus.Result Comment: Random Glucose Reference Range is dependent on time and content of last meal. Glucose of more than 200 mg/dL in a nonstressed, ambulatory subject supports the diagnosis of Diabetes Mellitus. ADA recommended reference rangePerformed By: #### CMP, CBC #### [place] [id number] USAHematocrit [Volume Fraction] of Blood by Automated count Ordered By: Melanie Taylor on 50-78-4315Ktcpfhrkiv (Bld) [Volume fraction]26.0 % Low38.8-50.0[facility] Hospital Of ColumbusComment on above:Performed By: #### CMP, CBC #### [address] [address] USAHemoglobin [Mass/volume] in BloodOrdered By: Melanie Taylor on 50-07-2015Tgdovlyfhq (Bld) [Mass/Vol]8.5 g/dLLow13.0-17.0[facility] Hospital Of ColumbusComment on above:Performed By: #### CMP, CBC #### [facility] [address] [place] [address] USALeukocytes [#/volume] corrected for nucleated erythrocytes in Blood by Automated counOrdered By: Melanie Claudia on 38-15-5931HYA corrected for nucl RBC Auto (Bld) [#/Vol]5.5 10*3/uL4.1-10.5FThe MetroHealth SystemLeukocytes [#/volume] in Blood by Automated countOrdered By: Melanie Claudia on 28-21-2931LJC (Bld) [#/Vol]5.5 10*3/uLNormal4.1-10.5FThe MetroHealth SystemComment on above:Performed By: #### CMP, CBC #### [facility] [address] [place] [address] USALymphocytes [#/volume] in Blood by Automated countOrdered By: Melanie Taylor on 49-82-1483Gnjvafzlewy (Bld) [#/Vol]0.7 10*3/uLLow1.00-4.8 [facility] Of ColumbusComment on above:Performed By: #### CMP, CBC #### [facility] [address] [place] [address] USALymphocytes/100 leukocytes in Blood by Automated count Ordered By: Melanie Taylor on 34-00-4314Kijrrqcdnfv/100 WBC (Bld)13.0 %Normal. [facility] Hospital Of ColumbusComment on above:Performed By: #### CMP, CBC #### [facility] [address] [place], [place] [address]H [Entitic mass] by Automated countOrdered By: Melanie Taylor on 51-37-6043SAJ (RBC) [Entitic mass]33.9 jmFjlbcq98.5-35.2FThe MetroHealth SystemComment on above:Performed By: #### CMP, CBC #### [facility] [address] [place], [place] [address] [facility]HC Auto (RBC) [Mass/Vol]Ordered By: Melanie Taylor on 93-09-8589LQVC (RBC) [Mass/Vol]32.9 g/dL32.5-35.6FThe MetroHealth SystemMCV [Entitic volume] by Automated countOrdered By: Melanie Taylor on 20-36-2445JKM (RBC) [Entitic vol]103.2 kSTrou45.5-101[facility] Of ColumbusComment on above:Performed By: #### CMP, CBC #### [facility] [address] [place] [address] USANeutrophils [#/volume] in Blood by Automated countOrdered By: Melanie Taylor on 49-23-8988Qcisdqdprrm (Bld) [#/Vol]4.0 10*3/uLNormal 1.8-7.7FThe MetroHealth SystemComment on above:Performed By: #### CMP, CBC #### [place] [address] USANo Panel InformationOrdered By: Melanie Taylor on 92-15-3523Pjscgbvza GFR (CKD-EPI)56.765 mL/MinChildren'S Hospital Of Columbus Pharmacy Creatinine Clearance (Chem50.91[facility] Nucleated erythrocytes [Presence] in Blood by Automated countOrdered By: Melanie Taylor on 90-37-4538Azznzzvar RBC Auto Ql (Bld)0.2 /100{WBC}0-0.5FThe MetroHealth SystemPlatelet mean volume [Entitic volume] in Blood by Automated countOrdered By: Melanie Taylor on 60-22-4225Lhwtfuoq mean volume (Bld) [Entitic vol]10.0 fLNormal6.6-10.1FThe MetroHealth SystemComment on above:Performed By: #### CMP, CBC #### [facility] [address] [place] [address] USAPlatelets [#/volume] in Blood by Automated countOrdered By: Melanie Taylor on 71-26-5588Mwzluuhkx (Bld) [#/Vol]120 10*3/hWJwf089-236 [facility] Of ColumbusComment on above:Performed By: #### CMP, CBC #### [place] [address] USAPotassium [Moles/volume] in Serum or PlasmaOrdered By: Melanie Taylor on 29-51-6026Idcgeaarv [Moles/Vol]4.3 mmol/LNormal3.5-5.1 [facility] Of ColumbusComment on above:Performed By: #### CMP, CBC #### [place] [address] USAProtein [Mass/volume] in Serum or PlasmaOrdered By: Melanie Taylor on 33-72-6965Csflkwr [Mass/Vol]6.6 g/dLNormal6.4-8.9[facility] Hospital Of ColumbusComment on above:Performed By: #### CMP, CBC #### [place] [address] USASerum globulin measurement by calculation (mass/volume) Ordered By: Melanie Taylor on 39-39-2766Nwxwgtww (S) [Mass/Vol]3.2 g/dLNormal [facility] ColumbusComment on above:Performed By: #### CMP, CBC #### [place] [address] USASerum or plasma albumin/globulin mass ratioOrdered By: Melanie Taylor on 78-83-9151Zeztvcp/Globulin [Mass ratio]1.1 {ratio}Normal [facility] Of ColumbusComment on above:Performed By: #### CMP, CBC #### [place] [address] USASerum or plasma anion gap determinationOrdered By: Melanie Taylor on 36-11-9475Iyawl gap [Moles/Vol]8.4 mmol/LNormal6.0-15.0[facility] Of ColumbusComment on above:Performed By: #### CMP, CBC #### [place] [address] USASodium [Moles/volume] in Serum or PlasmaOrdered By: Melanie Taylor on 73-29-6430Aobyax [Moles/Vol]138 mmol/WMrnjwh641-685QnexliztuChildren'S Hospital Of ColumbusComment on above:Performed By: #### CMP, CBC #### [place] [address] USAUrea nitrogen [Mass/volume] in Serum or PlasmaOrdered By: Melanie Taylor on 61-34-5204Cnhu nitrogen [Mass/Vol]21 mg/dLNormal7-25[facility] Hospital Of ColumbusComment on above:Performed By: #### CMP, CBC #### [place] [address] USAAlbumin [Mass/volume] in Serum or PlasmaOrdered By: Harjinder Gibbons on 56-47-4440Gibjteq [Mass/Vol]3.0 g/dLNormal2.9-4.4FThe MetroHealth SystemComment on above:Performed By: #### CMP, CBC #### [place] [address] USAComplete Blood Count Auto Diffon 85-64-4224Qygwqviqz (Bld) [#/Vol]0.1 10*3/uLNormal0.0-0.2The [facility] Physician GroupComment on above: Result Comment: PERFORMED BY: [place] [address] PATHOLOGIST BACK ORDER CLERK EDIL LEMUS M.D.Performed By: #### CMP, CBC #### [place] [address] USABasophils/100 WBC (Bld)1.0 %Normal.The [facility] Physician GroupComment on above:Performed By: #### CMP, CBC #### [place] [address] USAEosinophils (Bld) [#/Vol]0.2 10*3/uLNormal0.0-0.45The [facility] Physician GroupComment on above:Performed By: #### CMP, CBC #### [place] [address] USAEosinophils/100 WBC (Bld)3.6 %Normal.The [facility] Physician GroupComment on above:Performed By: #### CMP, CBC #### [place] [address] USAErythrocyte distribution width (RBC) [Ratio]15.6 %High 12.0-14.8The [facility] Physician GroupComment on above:Performed By: #### CMP, CBC #### [place] [address] USAHematocrit (Bld) [Volume fraction]26.6 %Low38.8-50.0The [facility] Physician GroupComment on above:Performed By: #### CMP, CBC #### [place] [address] USAHemoglobin (Bld) [Mass/Vol]8.8 g/dLLow13.0-17.0The [facility] Physician GroupComment on above:Performed By: #### CMP, CBC #### [place] [address] USALymphocytes (Bld) [#/Vol]0.9 10*3/uLLow1.00-4.8The [facility] Physician GroupComment on above:Performed By: #### CMP, CBC #### [place] [address] USALymphocytes/100 WBC (Bld)13.3 %Normal.The [facility] Physician GroupComment on above:Performed By: #### CMP, CBC #### [place] [address] USAMCH (RBC) [Entitic mass]34.3 rnNmlzvf00.5-35.2The [facility] Physician GroupComment on above:Performed By: #### CMP, CBC #### [place] [address] USAMCV (RBC) [Entitic vol]103.4 sLIvag44.5-101The [facility] Physician GroupComment on above:Performed By: #### CMP, CBC #### [place] [address] USAMean Corpuscular HGB Conc33.2 g/rBPtpmuj32.5-35.6The [facility] Physician GroupComment on above:Performed By: #### CMP, CBC #### [place] [address] USAMonocytes (Bld) [#/Vol]0.4 10*3/uLNormal0.0-0.8The [facility] Physician GroupComment on above:Performed By: #### CMP, CBC #### [place] [address] USAMonocytes/100 WBC (Bld)6.6 %Normal.The [facility] Physician GroupComment on above:Performed By: #### CMP, CBC #### [facility] [address] [place] [address] USANeutrophils (Bld) [#/Vol]4.8 10*3/uLNormal1.8-7.7The [facility] Physician GroupComment on above:Performed By: #### CMP, CBC #### [place] [address] USANeutrophils/100 WBC (Bld)75.5 %Normal.The [facility] Physician GroupComment on above:Performed By: #### CMP, CBC #### [place] [address] USANRBC%0.3 /100{WBC}Normal0-0.5The [facility] Physician Group Comment on above:Performed By: #### CMP, CBC #### [place] [address] USAPlatelet mean volume (Bld) [Entitic vol]10.5 fLHigh 6.6-10.1The [facility] Physician GroupComment on above:Performed By: #### CMP, CBC #### [place] [address] USAPlatelets (Bld) [#/Vol]117 10*3/bIUtk832-459Zgb [facility] Physician GroupComment on above:Performed By: #### CMP, CBC #### [place] [address] USARBC (Bld) [#/Vol]2.57 10*6/uLLow3.90-5.60The [facility] Physician GroupComment on above:Performed By: #### CMP, CBC #### [place] [id number] USAWBC (Bld) [#/Vol]6.4 10*3/uLNormal4.1-10.5The [facility] Physician GroupComment on above:Performed By: #### CMP, CBC #### [place] [address] USAComprehensive Metabolic Panelon 81-21-7354Bxpygev [Mass/Vol]3.3 g/dLLow3.5-5.7The [facility] Physician GroupComment on above: Performed By: #### CMP, CBC #### [facility] [address] [place] [address] USAAlbumin/Globulin [Mass ratio]1.1 {ratio}NormalThe [facility] Physician GroupComment on above:Performed By: #### CMP, CBC #### [place] [address] USAALP [Catalytic activity/Vol]69 U/VFwikvu38-434Bin [facility] Physician GroupComment on above:Performed By: #### CMP, CBC #### [place] [address] USAALT [Catalytic activity/Vol]7 U/LNormal7-52The [facility] Physician GroupComment on above:Performed By: #### CMP, CBC #### [place] [address] USAAnion gap [Moles/Vol]9.2 mmol/LNormal6.0-15.0The [facility] Physician GroupComment on above:Performed By: #### CMP, CBC #### [place] [address] USAAST [Catalytic activity/Vol]14 U/IYhglcv11-14Vxl [facility] Physician GroupComment on above:Performed By: #### CMP, CBC #### [place] [address] USABilirubin [Mass/Vol]0.6 mg/dLNormal0.3-1.0The [facility] Physician GroupComment on above:Performed By: #### CMP, CBC #### [place] [address] USACalcium [Mass/Vol]9.3 mg/dLNormal8.6-10.3The [facility] Physician GroupComment on above:Performed By: #### CMP, CBC #### [facility] [address] [place] [address] USAChloride [Moles/Vol]96 mmol/OUhb42-560Ggd [facility] Physician GroupComment on above:Performed By: #### CMP, CBC #### [facility] [address] [place] [address] USACO2 [Moles/Vol]36.4 mmol/LHigh21.0-31.0The [facility] Physician GroupComment on above:Performed By: #### CMP, CBC #### [place] [address] USACreatinine [Mass/Vol]1.03 mg/dLNormal0.70-1.30The [facility] Physician GroupComment on above:Performed By: #### CMP, CBC #### [place] [address] USACreatinine Clr Calc Frfjpvch42.61NormalThe [facility] Physician GroupComment on above:Performed By: #### CMP, CBC #### [place] [address] USAGFR/1.73 sq M.predicted MDRD (S/P/Bld) [Vol rate/Area] mL/min/{1.73_m2}NormalThe [facility] Physician GroupComment on above:Performed By: #### CMP, CBC #### [place] [address] USAGlucose [Mass/Vol]114 mg/qFVkhr59-304Buo [facility] Physician GroupComment on above:Result Comment: Random Glucose Reference Range is dependent on time and content of last meal. Glucose of more than 200 mg/dL in a nonstressed, ambulatory subject supports the diagnosis of Diabetes Mellitus. ADA recommended reference rangePerformed By: #### CMP, CBC #### [place] [address] USAPotassium [Moles/Vol]3.6 mmol/LNormal3.5-5.1The [facility] Physician GroupComment on above:Performed By: #### CMP, CBC #### [facility] [address] [place] [address] USAProtein [Mass/Vol]6.4 g/dLNormal6.4-8.9The [facility] Physician GroupComment on above:Performed By: #### CMP, CBC #### [facility] [address] [place] [address] USASodium [Moles/Vol]138 mmol/SDmwepb170-260Ucx [facility] Physician GroupComment on above:Performed By: #### CMP, CBC #### [facility] [address] [place] [address] USAUrea nitrogen [Mass/Vol]15 mg/dLNormal7-25The [facility] Physician GroupComment on above:Performed By: #### CMP, CBC #### [facility] [address] [place] [address] USAECG 12 lead ECGon 22-23-5723HTJ 12 lead ECGASHT[facility]UL[facility] [place] [address] [place] [address] Electrocardiograph Report Signed Patient: Brian Mandel MR#: [id number] : 1950 Acct:[id number] Age/Sex: 73 / M ADM Date: 07/18/23 Loc: Room: [address] [place] [address] Type: ADM IN Attending Dr: Melanie Taylor DO Ordering Provider: Erlin Ledezma DO [...] now present Confirmed by Julio Cesar Mccormick ([id number]) on 07/21/2023 10:25:24 AM Referred By: Electronically Signed By:Julio Cesar Mccormick Transcribed By: MUS Signed By Julio Cesar Mccormick MD 07/21/23 1025NormH[facility] Physician GroupErythropoetin (EPO), Serumon 41-91-9693Dylnfonnjzlue (EPO), Serum19.6 m[iU]/mLHigh2.6-18.5The [facility] Physician [facility] CenterComment on above:Result Comment: [employer] DxI 800 Immunoassay System Values obtained with different assay methods or kits cannot be used interchangeably. Results cannot be interpreted as absolute evidence of the presence or absence of malignant disease. Performed at: [address] [id number] Structural Drafter: Fredy Choudhury PhD, Phone: [phone] PERFORMED BY: [place] [address] PATHOLOGIST BACK ORDER CLERK EDIL LEMUS M.D.Performed By: #### CMP, CBC #### [facility] [address] [place] [address] USAFerritin [Mass/volume] in Serum or PlasmaOrdered By: Harjinder Gibbons on 32-78-1728Qhdjzcfz [Mass/Vol]78.5 ng/eWYzxtna86.9-336.2 [facility] ColumbusComment on above:Performed By: #### CMP, CBC #### [facility] [address] [place], [place] [address] USAFolateon 25-34-6703Mtxzpy2.8 ng/mLLow>5.9The [facility] Physician [facility] CenterComment on above:Result Comment: Folate reference range: >5.9 ng/ml The WHO technical consultation on folate and vitamin b12 deficiencies has determined that folate concentrations less than 4 ng/ml are considered deficient. PERFORMED BY: [place] [address] PATHOLOGIST BACK ORDER CLERK EDIL LEMUS M.D.Performed By: #### CMP, CBC #### [facility] [address] [place] [address] USAFolate [Mass/volume] in Serum or PlasmaOrdered By: Harjinder Gibbons on 18-55-3193Tmmcqj [Mass/Vol]4.8 ng/mL>5.9[facility] Of ColumbusComment on above:Folate reference range: >5.9 ng/mlThe WHO technical consultation on folate and vitamin s15qomcgreetosn has determined that folate concentrations lessthan 4 ng/ml are considered deficient.Free K+L LT Chains, Qn, Son 60-05-1710Nhbt Ramireno Light Chains, S47.5 mg/LHigh3.3-19.4The [facility] Physician GroupComment on above:Performed By: #### CMP, CBC #### [place] [address] USAFree Lambda Light Chains, S32.4 mg/LHigh5.7-26.3The [facility] Physician [facility] CenterComment on above:Performed By: #### CMP, CBC #### [place] [address] USAKappa/Lambda Ratio, S1.96Awgizx4.26-1.65The [facility]y Health SystemComment on above:Result Comment: Performed at: - [facility] [id number] Structural Drafter: Fredy Choudhury PhD, Phone: [phone] PERFORMED BY: [place] [address] PATHOLOGIST BACK ORDER CLERK EDIL LEMUS M.D.Performed By: #### CMP, CBC #### [place] [id number] USAGlucose Poct Glucometerson 04-20-4775Nsyuamg [Mass/Vol]111 mg/dLNormalThe [facility] Physician [facility] CenterComment on above:Result Comment: Random Glucose Reference Range is dependent on time and content of last meal. Glucose of more than 200 mg/dL in a nonstressed, ambulatory subject supports the diagnosis of Diabetes Mellitus. PERFORMED BY: [place] [address] PATHOLOGIST BACK ORDER CLERK EDIL LEMUS M.D.Performed By: #### GLULS #### Point of Care testing ,Glucose [Mass/Vol]121 mg/dLNoUNC Health Physician GroupComment on above: Result Comment: Random Glucose Reference Range is dependent on time and content of last meal. Glucose of more than 200 mg/dL in a nonstressed, ambulatory subject supports the diagnosis of Diabetes Mellitus. PERFORMED BY: [place] [address] PATHOLOGIST BACK ORDER CLERK EDIL LEMUS M.D.Performed By: #### HS TROP, CK #### [place] [address] USAGlucose [Mass/Vol]136 mg/dLNoUNC Health Physician GroupComment on above:Result Comment: Random Glucose Reference Range is dependent on time and content of last meal. Glucose of more than 200 mg/dL in a nonstressed, ambulatory subject supports the diagnosis of Diabetes Mellitus. PERFORMED BY: [place] [address] PATHOLOGIST BACK ORDER CLERK EDIL LEMUS M.D.Performed By: #### GLULS #### Point of Care testing ,Glucose [Mass/Vol]138 mg/dLNoUNC Health Physician GroupComment on above: Result Comment: Random Glucose Reference Range is dependent on time and content of last meal. Glucose of more than 200 mg/dL in a nonstressed, ambulatory subject supports the diagnosis of Diabetes Mellitus. PERFORMED BY: [place] [address] PATHOLOGIST BACK ORDER CLERK EDIL LEMUS M.D.Performed By: #### GLULS #### Point of Care testing ,IgA [Mass/volume] in Serum or PlasmaOrdered By: Harjinder Gibbons on 07-20-2023 IgA [Mass/Vol]431 mg/yN74-834NydlaotrzChildren'S Hospital Of ColumbusIgG [Mass/volume] in Serum or PlasmaOrdered By: Harjinder Gibbons on 04-65-7023IfS [Mass/Vol]1219 mg/kM861-4257KybvrfoceChildren'S Hospital Of ColumbusIgM [Mass/volume] in Serum or PlasmaOrdered By: Harjinder Gibbons on 01-54-7885MhA [Mass/Vol]21 mg/bY67-627 [facility] Of ColumbusComment on above:Result confirmed on concentration.Performed at: [facility] [id number] Director: Fredy Choudhury PhD, Phone: [phone],Serum on 76-73-4506Bebmnqolgacvly, SerumComment:Normal.The [facility] Physician Group Comment on above:Result Comment: Presence of monoclonal protein is unclear at this time. Suggest repeat in 3 to 6 months if clinically indicated.Performed By: #### HS TROP, CK #### [facility] [address] [place] [address] USAImmunoglobulin A, Wxkpl108 mg/mPKbowtx72-528Kud [facility] Physician [facility] CenterComment on above:Performed By: #### HS TROP, CK #### [facility] [address] [place] [address] USAImmunoglobulin G1219 mg/sECxjahg121-4975Crs [facility] Physician [facility] CenterComment on above:Performed By: #### HS TROP, CK #### [facility] [address] [place] [address] USAImmunoglobulin M, Serum21 mg/qDRgzdvj12-686Wje [facility] Physician [facility] CenterComment on above:Result Comment: Result confirmed on concentration. Performed at: [facility] [id number] Structural Drafter: Fredy Choudhury PhD, Phone: [phone] By: #### HS TROP, CK #### [facility] [address] [place] [address] USAImmunoglobulin light chains.kappa.free [Mass/volume] in SerumOrdered By: Harjinder Gibbons on 20-14-3231Ugmovqumbfgogc light chains.kappa.free (S) [Mass/Vol]47.5 mg/L3.3-19.4FThe MetroHealth SystemImmunoglobulin light chains.kappa.free/Immunoglobulin light chains.lambda.free [MassOrdered By: Harjinder Gibbons on 05-29-2024 Immunoglobulin light chains.kappa.free/Immunoglobulin light chains.lambda.free (S) [Mass ratio]1.470.26-1.65[facility] Hospital Of ColumbusComment on above: Performed at: [facility] [id number] Director: Fredy Choudhury PhD, Phone: [phone] light chains.lambda.free [Mass/volume] in Serum or PlasmaOrdered By: Harjinder Gibbnos on 72-97-8913Erxzynujvkehct light chains.lambda.free [Mass/Vol]32.4 mg/L 5.7-26.3FThe MetroHealth SystemIron [Mass/volume] in Serum or Plasma Ordered By: Harjinder Gibbons on 30-15-1482Muli [Mass/Vol]73 ug/dIAihcen55-543 [facility] Of ColumbusComment on above:Performed By: #### CMP, CBC #### [facility] [address] [place] [address] USAIron and TIBC Profileon 07-20-2023% Iron Trypgbnpkz52.5 % Ddw75-64Xka [facility] Physician GroupComment on above:Performed By: #### CMP, CBC #### [facility] [address] [place] [address] USATotal Iron Binding Sjaflwen210 ug/tGGxwkfc277-342QunWayne General HospitalComment on above:Performed By: #### CMP, CBC #### [facility] [address] [place] [address] USAIron binding capacity [Mass/volume] in Serum or Plasma Ordered By: Harjinder Gibbons on 34-92-0325Vjaj binding capacity [Mass/Vol]375 ug/xY179-148XjtndjnwzChildren'S Hospital Of ColumbusIron saturation [Mass Fraction] in Serum or PlasmaOrdered By: Harjinder Gibbons on 40-03-6350Obmr saturation [Mass fraction]19.5 %20-50Children'S Hospital Of ColumbusLon 67-90-0956PMqcikxgi: P24-250 Received: 07/20/23-1118 Status: SOUT Req Num: [id number] Spec Type: Impression Subm Dr: Harjinder Gibbons, II, DO Tissues: PATHPER Procedures: PATHREVIEW Age/ Patient Sex Location Account Attending Physician JujuchristianoBrian botello 73/M 4P [id number] Melanie Jerzy Taylor DO SPEC NUM: [id number] RECD: 07/20/23 STATUS: WHITNEY DUNCAN NUM: [id number] ISIDRA: 07/20/[address]: Harjinder Gibbons II, DO ENTERED: 07/20/[address] [facility] DR: SPEC TYPE: Impression DEPT: [place] ENTERED BY: [id number] RECV BY: [id number] ORDERED: PATHREVIEW ORDERED: PATHREVIEW Pathologist Review Macrocytic Anemia is noted. Differential Diagnosis Includes Bone Marrow Pathology, B12/folate Deficiency, Liver Disease, Hypothyroidism, Alcoholism, Etc. Clinical Correlation Is Required. Thrombocytopenia Is Noted. Differential Diagnosis Includes Peripheral Etiology (e.g. ITP, Drug-induced) Vs. Bone Marrow Disorder[place]. [address] CBC Date Time Test Result Flag (u) [...] Neut % (Auto) 75.5 . % Specimen: [id number] Received: 07/20/23 Status: WHITNEY Req Num: [id number] Spec Type: Impression Subm Dr: Harjinder Gibbons II, DO Tissues: PATHPER Procedures: PATHREVIEW Patient: Brian Mandel Lia [id number] (Continued) Specimen: [id number] Received: 07/20/23 (Continued) JIN (Continued) Signed (signature on file) Will Rodney MD 07/25/23 1522 Specimen: [id number] Received: 07/20/23 Status: WHITNEY Duncan Num: [id number] Spec Type: Impression Subm Dr: Harjinder Gibbons II, DO Tissues: PATHPER Procedures: PATHREVIEW Patient: Brian Mandel [id number] (Continued) Specimen: [id number] Received: 07/20/23-1118 (Continued) CBC (Continued) Lymp % (Auto) 13.3 . % [place] % (Auto) 6.6 . % Eos % (Auto) 3.6 . % Baso % (Auto) 1.0 . % NRBC% 0.3 0-0.5 /100 WBC Neut # (Auto) 4.8 1.8-7.7 x10E3/uL Lymph # (Auto) 0.9 L 1.00-4.8 x10E3/uL [place] # (Auto) 0.4 0.0-0.8 x10E3/uL Eos # (Auto) 0.2 0.0-0.45 x10E3/uL Baso# (Auto) 0.1 0.0-0.2 x10E3/uL Specimen: [id number] Received: 07/20/23 Status: WHITNEY Duncan Num: [id number] Spec Type: Impression Subm Dr: Harjinder Gibbons II, DO Tissues: PATHPER Procedures: PATHREVIEW Patient: Brian Mandel [id number] (Continued) Signed (signature on file) Will Rodney MD 07/25/[address] [place] [address] Physician GroupMethylmalonic Acidon 07-20-2023 Methylmalonic Gnzi397Qvfz7-525Ffn [place] Physician GroupComment on above: Result Comment: This test was developed and its performance characteristics determined by [facility]. It has not been cleared or approved by the Food and Drug Administration. Performed at: [address] [id number] Structural Drafter: Agustin Jim MD, Phone: [phone] By: #### HS REANNA SMITH #### [place] [address] USANo Panel InformationOrdered By: Harjinder Gibbons on 47-16-9582Gioxmbc Electrophoresis M-SpikeNot observed g/dLNot ObservedFirOhio Valley HospitalProtein Electrophoresis NoteSee comment.[facility] Hospital Of ColumbusComment on above:Protein electrophoresis scan will follow via computer,mail, or report writer delivery.Serum ImmunofixationComment:.[facility] Hospital Of ColumbusComment on above:Presence of monoclonal protein is unclear at this time. Suggestrepeat in 3 to 6 months if clinically indicated. Slides for Pathologist ReviewOrdered path reviewChildren'S Hospital Of ColumbusPathologist Slide Reviewon 80-67-7967Bjlrdndrhre Slide ReviewOrdered Path ReviewNoUNC Health Physician [facility] Mississippi Medical CenterComment on above:Result Comment: PERFORMED BY: [place] [address] PATHOLOGIST BACK ORDER CLERK EDIL LMEUS M.D.Performed By: #### CMP, CBC #### [place] [address] USAProtein Electrophoresis, Serumon 07-20-2023 Gvjom-2-Vfunwqzy5.3 g/dLNormal0.0-0.4The [facility] Physician GroupComment on above:Performed By: #### CMP, CBC #### [place] [address] TKDHtdoz-3-Kmkirhyx5.7 g/dLNormal0.4-1.0The [facility] Physician [facility] CenterComment on above:Performed By: #### CMP, CBC #### [place] [address] USABeta Globulin1.1 g/dLNormal0.7-1.3The [facility] Physician GroupComment on above:Performed By: #### CMP, CBC #### [place] [address] USAGamma Globulin1.1 g/dLNormal0.4-1.8The [facility] Physician GroupComment on above:Performed By: #### CMP, CBC #### [place] [address] USAM-SpikeNot ObservedNormalNot ObservedThe [facility] Physician GroupComment on above:Performed By: #### CMP, CBC #### [place] [address] USASPE-NoteNormal.The [facility] Physician GroupComment on above:Result Comment: Protein electrophoresis scan will follow via computer, mail, or report writer delivery.Performed By: #### CMP, CBC #### [facility] [address] [place] [address] USAProtein [Mass/volume] in Serum or PlasmaOrdered By: Harjinder Gibbons on 37-55-2716Dxyikbn [Mass/Vol]6.1 g/dLNormal6.0-8.5FThe MetroHealth SystemComment on above:Performed By: #### CMP, CBC #### [facility] [address] [place] [address] USASerum globulin measurement (mass/volume)Ordered By: Harjinder Gibbons on 54-94-3992Lhmsnhoc (S) [Mass/Vol]3.1 g/dLNoNationwide Children's HospitalComment on above:Performed By: #### CMP, CBC #### [facility] [address] [place] [address] USASerum or plasma albumin/globulin mass ratioOrdered By: Harjinder Gibbons on 31-36-1568Vzmggtw/Globulin [Mass ratio]1.0 {ratio}Normal 0.7-1.7FThe MetroHealth SystemComment on above:Performed By: #### CMP, CBC #### [facility] [address] [place] [address] USASerum or plasma alpha 1 globulin measurement by electrophoresis (mass/volume)Ordered By: Harjinder Gibbons on 08-27-4246Thett 1 globulin Elph [Mass/Vol]0.3 g/dL0.0-0.4FMercy Healtherum or plasma alpha 2 globulin measurement by electrophoresis (mass/volume)Ordered By: Harjinder Gibbons on 12-57-2805Bdbxq 2 globulin Elph [Mass/Vol]0.7 g/dL0.4-1.0 [facility] Ahuja Medical Centererum or plasma beta globulin measurement by electrophoresis (mass/volume)Ordered By: Harjinder Gibbons on 79-25-5472Wban globulin Elph [Mass/Vol]1.1 g/dL0.7-1.3FMercy Healtherum or plasma gamma globulin measurement by electrophoresis (mass/volume)Ordered By: Harjinder Gibbons on 23-23-4391Teenw globulin Elph [Mass/Vol]1.1 g/dL0.4-1.8 [facility] Hospital Of ColumbusTransferrin [Mass/volume] in Serum or Plasma Ordered By: Harjinder Gibbons on 48-52-5838Csjorpoghpl [Mass/Vol]268 mg/dLNormal 203-362Children[facility] Hospital Of ColumbusComment on above:Performed By: #### CMP, CBC #### [facility] [address] [place] [id number] USATroponin I High Sensitivityon 84-62-3599Wfnkijlw I High Nxdigfzlcnm438.2 pg/mLOff scale high0.0-20.0The [facility] Physician GroupComment on above:Result Comment: Critical Result : Called to and read back by: TIAN FLOREZ at: 07/20/2023 06:14:54 by:[id number] PERFORMED BY: [place] [id number] PATHOLOGIST BACK ORDER CLERK EDIL LEMUS M.D.Performed By: #### HS TROP, CK #### [address] [address] USATroponin I.cardiac [Mass/volume] in Serum or Plasma by Detection limit <= 0.01 ng/Ordered By: Erlin Ledezma on 88-93-3130Pwihndzj I.cardiac DL <= 0.01 ng/mL [Mass/Vol]172.2 pg/mL0.0-20.0[facility] Comment on above:Critical Result : Called to and read back by: TIAN FLOREZ at: 07/20/2023 06:14:54 by:[id number] B12 ser/plasOrdered By: Harjinder Gibbons on 04-10-8375Hzsctvwbs (Vitamin B12) [Mass/Vol]210 pg/pXChhezv361-628 [facility] Hospital Of ColumbusComment on above:Performed By: #### CMP, CBC #### [address] [address] USABNP ser/plasOrdered By: Melanie Taylor on 07-19-2023 Natriuretic peptide B (Bld) [Mass/Vol]438.0 pg/mLHigh5-100Children[facility] Hospital Of ColumbusComment on above:Result Comment: PERFORMED BY: [place] [address] PATHOLOGIST BACK ORDER CLERK EDIL LEMUS M.D.Performed By: #### CMP, CBC #### [place] [address] USAComplete Blood Count Auto Diffon 99-02-6626Juniktzpo (Bld) [#/Vol]0.1 10*3/uLNormal0.0-0.2The [facility] Physician GroupComment on above: Result Comment: PERFORMED BY: [place] [address] PATHOLOGIST BACK ORDER CLERK EDIL LEMUS M.D.Performed By: #### CMP, CBC #### [place] [address] USABasophils/100 WBC (Bld)1.4 %Normal.The [facility] Physician GroupComment on above:Performed By: #### CMP, CBC #### [place] [address] USAEosinophils (Bld) [#/Vol]0.2 10*3/uLNormal0.0-0.45The [facility] Physician GroupComment on above:Performed By: #### CMP, CBC #### [place] [address] USAEosinophils/100 WBC (Bld)2.9 %Normal.The [facility] Physician GroupComment on above:Performed By: #### CMP, CBC #### [place] [address] USAErythrocyte distribution width (RBC) [Ratio]16.3 %High 12.0-14.8The [facility] Physician GroupComment on above:Performed By: #### CMP, CBC #### [place] [address] USAHematocrit (Bld) [Volume fraction]27.8 %Low38.8-50.0The [facility] Physician GroupComment on above:Performed By: #### CMP, CBC #### [place] [address] USAHemoglobin (Bld) [Mass/Vol]9.1 g/dLLow13.0-17.0The [facility] Physician GroupComment on above:Performed By: #### CMP, CBC #### [place] [address] USALymphocytes (Bld) [#/Vol]1.4 10*3/uLNormal1.00-4.8The [facility] Physician GroupComment on above:Performed By: #### CMP, CBC #### [place] [address] USALymphocytes/100 WBC (Bld)22.9 %Normal.The [facility] Physician GroupComment on above:Performed By: #### CMP, CBC #### [place] [address] USAMCH (RBC) [Entitic mass]33.9 ivVwrqmo23.5-35.2The [facility] Physician GroupComment on above:Performed By: #### CMP, CBC #### [place] [address] USAMCV (RBC) [Entitic vol]103.5 lIBjhd02.5-101The [facility] Physician GroupComment on above:Performed By: #### CMP, CBC #### [place] [address] USAMean Corpuscular HGB Conc32.8 g/cBSvgdiu49.5-35.6The [facility] Physician GroupComment on above:Performed By: #### CMP, CBC #### [place] [address] USAMonocytes (Bld) [#/Vol]0.4 10*3/uLNormal0.0-0.8The [facility] Physician GroupComment on above:Performed By: #### CMP, CBC #### [place] [address] USAMonocytes/100 WBC (Bld)6.8 %Normal.The [facility] Physician GroupComment on above:Performed By: #### CMP, CBC #### [facility] [address] [place] [address] USANeutrophils (Bld) [#/Vol]4.1 10*3/uLNormal1.8-7.7The [facility] Physician GroupComment on above:Performed By: #### CMP, CBC #### [place] [address] USANeutrophils/100 WBC (Bld)66.0 %Normal.The [facility] Physician GroupComment on above:Performed By: #### CMP, CBC #### [place] [address] USANRBC%0.3 /100{WBC}Normal0-0.5The [facility] Physician Group Comment on above:Performed By: #### CMP, CBC #### [place] [address] USAPlatelet mean volume (Bld) [Entitic vol]10.5 fLHigh 6.6-10.1The [facility] Physician GroupComment on above:Performed By: #### CMP, CBC #### [place] [address] USAPlatelets (Bld) [#/Vol]113 10*3/zHWrx723-903Koz [facility] Physician GroupComment on above:Performed By: #### CMP, CBC #### [place] [address] USARBC (Bld) [#/Vol]2.69 10*6/uLLow3.90-5.60The [facility] Physician GroupComment on above:Performed By: #### CMP, CBC #### [place] [address] USAWBC (Bld) [#/Vol]6.3 10*3/uLNormal4.1-10.5The [facility] Physician GroupComment on above:Performed By: #### CMP, CBC #### [address] [place] [address] USAComprehensive Metabolic Panelon 56-95-2161Lmxdcxf [Mass/Vol]3.6 g/dLNormal3.5-5.7The [facility] Physician GroupComment on above: Performed By: #### CMP, CBC #### [place] [address] USAAlbumin/Globulin [Mass ratio]1.2 {ratio}NormalThe [facility] Physician GroupComment on above:Performed By: #### CMP, CBC #### [place] [address] USAALP [Catalytic activity/Vol]78 U/IQavuvv40-867Rea [facility] Physician GroupComment on above:Performed By: #### CMP, CBC #### [place] [address] USAALT [Catalytic activity/Vol]7 U/LNormal7-52The [facility] Physician GroupComment on above:Performed By: #### CMP, CBC #### [place] [address] USAAnion gap [Moles/Vol]7.8 mmol/LNormal6.0-15.0The [facility] Physician GroupComment on above:Performed By: #### CMP, CBC #### [place] [address] USAAST [Catalytic activity/Vol]14 U/FMrpkpt80-44Anq [facility] Physician GroupComment on above:Performed By: #### CMP, CBC #### [place] [address] USABilirubin [Mass/Vol]0.6 mg/dLNormal0.3-1.0The [facility] Physician GroupComment on above:Performed By: #### CMP, CBC #### [place] [address] USACalcium [Mass/Vol]9.2 mg/dLNormal8.6-10.3The [facility] Physician GroupComment on above:Performed By: #### CMP, CBC #### [place] [address] USAChloride [Moles/Vol]99 mmol/KYztivx18-830Jkh [facility] Physician GroupComment on above:Performed By: #### CMP, CBC #### [facility] [address] [place] [address] USACO2 [Moles/Vol]37.5 mmol/LHigh21.0-31.0The [facility] Physician GroupComment on above:Performed By: #### CMP, CBC #### [facility] [address] [place] [address] USACreatinine [Mass/Vol]1.06 mg/dLNormal0.70-1.30The [facility] Physician GroupComment on above:Performed By: #### CMP, CBC #### [place] [address] USACreatinine Clr Calc Xluxomih98.79NormHCA Florida West Hospital Physician GroupComment on above:Performed By: #### CMP, CBC #### [place] [address] USAGFR/1.73 sq M.predicted MDRD (S/P/Bld) [Vol rate/Area] mL/min/{1.73_m2}NormalThe [facility] Physician GroupComment on above:Performed By: #### CMP, CBC #### [place] [address] USAGlobulin (S) [Mass/Vol]3.0 g/dLPalm Springs General Hospital Physician GroupComment on above:Performed By: #### CMP, CBC #### [place] [address] USAGlucose [Mass/Vol]103 mg/xNJypi44-178Qad [facility] Physician GroupComment on above:Result Comment: Random Glucose Reference Range is dependent on time and content of last meal. Glucose of more than 200 mg/dL in a nonstressed, ambulatory subject supports the diagnosis of Diabetes Mellitus. ADA recommended reference rangePerformed By: #### CMP, CBC #### [place] [address] USAPotassium [Moles/Vol]4.3 mmol/LNormal3.5-5.1The [facility] Physician [facility] CenterComment on above:Performed By: #### CMP, CBC #### [facility] [address] [place] [address] USAProtein [Mass/Vol]6.6 g/dLNormal6.4-8.9The [facility] Physician [facility] CenterComment on above:Performed By: #### CMP, CBC #### [facility] [address] [place] [address] USASodium [Moles/Vol]140 mmol/CRwzfwk940-147Omc [facility] Physician GroupComment on above:Performed By: #### CMP, CBC #### [facility] [address] [place] [address] USAUrea nitrogen [Mass/Vol]17 mg/dLNormal7-25The [facility] Physician GroupComment on above:Performed By: #### CMP, CBC #### [facility] [address] [place] [id number] USACreatine Kinaseon 47-25-4270GX [Catalytic activity/Vol]30 U/CSdclza33-504Sci [facility] Physician [facility] CenterComment on above:Performed By: #### HS TROP, CK #### [facility] [address] [place] [address] USACreatine kinase [Enzymatic activity/volume] in Serum or PlasmaOrdered By: Melanie Taylor on 06-39-0703BI [Catalytic activity/Vol]28 U/L Nqj17-070EmeltbvdiChildren'S Hospital Of ColumbusComment on above:Performed By: #### CK, HS TROP #### [facility] [address] [place] [id number] USAECG 12 lead ECGon 12-39-8524IMU 12 lead ECGASHTABULA [facility] [place] [address] [place] [address] Electrocardiograph Report Signed Patient: Brian Mandel MR#: [id number] : 1950 Acct:[id number] Age/Sex: 73 / M ADM Date: 07/18/23 Loc: Room: [address] [place] [address] Type: ADM IN Attending Dr: Melanie Taylor DO Ordering Provider: Erlin Ledezma DO [...] was found Confirmed by Julio Cesar Mccormick ([id number]) on 07/21/2023 10:25:01 AM Referred By: Electronically Signed By:Julio Cesar Mccormick Transcribed By: MUS Signed By Julio Cesar Mccormick MD 07/21/[address] [place] [address] Physician GroupECH echo transthoracicon 05-46-1440PND echo transthoracicASHTABULA GENERAL [facility] [place] [address] [place] [address] Echocardiogram Signed Patient: Brian Mandel MR#: [id number] : 1950 Acct:[id number] Age/Sex: 73 / M ADM Date: 07/18/23 Loc: Room: [address] [place] [address] Type: ADM IN Attending Dr: Melanie Taylor DO Ordering Provider: Zakia Butcher MD Date of Service: 07/18/23 ECH/ECH echo transthoracic: Aortic stenosis; LV function Copies to: Zakia Butcher MD Height: 60 in Weight: 241 lb Performed By: Sara Yousif RDCS BSA: 2.0 m2 BP: 127/70 mmHg HR: 60 Reason For Study: Aortic stenosis; LV function History: COPD. DM. SARAH. HLD. GERD. CAD. CHF. VT. HTN. CABG. Anemia. AAA Repair. Family history [...] 1530 Signed By: Zakia Butcher MD 07/19/23 1724[facility] Physician [facility] Glucose Poct Glucometerson 67-07-5499Ljttykl1Ntx7: Cleaned MeterPalm Springs General Hospital Physician GroupComment on above:Result Comment: PERFORMED BY: [place] [address] PATHOLOGIST BACK ORDER CLERK EDIL LEMUS M.D.Performed By: #### HS TROP, CK #### [place] [address] USAGlucose [Mass/Vol]94 mg/dLNoUNC Health Physician GroupComment on above:Result Comment: Random Glucose Reference Range is dependent on time and content of last meal. Glucose of more than 200 mg/dL in a nonstressed, ambulatory subject supports the diagnosis of Diabetes Mellitus.Performed By: #### HS TROP, CK #### [place] [address] JVGUdwzbog7Cld0: Cleaned MeterPalm Springs General Hospital Physician GroupComment on above:Result Comment: PERFORMED BY: [place] [address] PATHOLOGIST BACK ORDER CLERK EDIL LEMUS M.D.Performed By: #### CMP, CBC #### [place] [address] USAGlucose [Mass/Vol]91 mg/dLPalm Springs General Hospital Physician GroupComment on above:Result Comment: Random Glucose Reference Range is dependent on time and content of last meal. Glucose of more than 200 mg/dL in a nonstressed, ambulatory subject supports the diagnosis of Diabetes Mellitus.Performed By: #### CMP, CBC #### [place] [address] USAGlucose [Mass/Vol]100 mg/dLNoUNC Health Physician GroupComment on above:Result Comment: Random Glucose Reference Range is dependent on time and content of last meal. Glucose of more than 200 mg/dL in a nonstressed, ambulatory subject supports the diagnosis of Diabetes Mellitus. PERFORMED BY: [place] [address] PATHOLOGIST BACK ORDER CLERK EDIL LEMUS M.D.Performed By: #### GLULS #### Point of Care testing ,Glucose [Mass/Vol]114 mg/dLNoUNC Health Physician GroupComment on above: Result Comment: Random Glucose Reference Range is dependent on time and content of last meal. Glucose of more than 200 mg/dL in a nonstressed, ambulatory subject supports the diagnosis of Diabetes Mellitus. PERFORMED BY: [place] [address] PATHOLOGIST BACK ORDER CLERK EDIL LEMUS M.D.Performed By: #### HS TROP, CK #### [facility] [address] [place], [place] [id number] USAMagnesium [Mass/volume] in Serum or PlasmaOrdered By: Melanie Taylor on 04-49-6087Qewqptfkw [Mass/Vol]1.6 mg/dLLow1.9-2.7FThe MetroHealth SystemComment on above:Result Comment: PERFORMED BY: [place] [address] PATHOLOGIST BACK ORDER CLERK EDIL LEMUS M.D.Performed By: #### CMP, CBC #### [facility] [address] [place], [place] [address] USANo Panel InformationOrdered By: Melanie Taylor on 02-51-3770Tvizqij Glucose CommentGlu2: cleaned [facility] Health CenterTroponin I High Sensitivityon 59-67-2580Qdjhotbv I High Dtsvaqdreel29.2 pg/mLOff scale high0.0-20.0The [facility] Physician GroupComment on above:Result Comment: Critical Result : Called to and read back by: HOWARD GAITAN at: 07/19/2023 14:10:52 by:JED PERFORMED BY: [place] [address] PATHOLOGIST BACK ORDER CLERK EDIL LEMUS M.D.Performed By: #### HS TROP, CK #### [place] [address] USATroponin I High Ohqszlviygt775.3 pg/mLOff scale high 0.0-20.0The [facility] Physician GroupComment on above:Result Comment: Critical Result : Called to and read back by: BRITTANY MORRIS at: 07/19/2023 01:39:47 by:[id number] PERFORMED BY: [place] [address] PATHOLOGIST BACK ORDER CLERK EDIL LEMUS M.D.Performed By: #### HS TROP, CK #### [place] [address] USACreatine Kinaseon 07-66-6840HL [Catalytic activity/Vol]32 U/YVzmlqg33-897Nhd [facility] Physician GroupComment on above:Performed By: #### HS TROP, CK #### [place] [address] USACK [Catalytic activity/Vol]34 U/OQbbjni56-345Egh [facility] Physician GroupComment on above:Performed By: #### HS TROP, CK #### [place] [address] USACK [Catalytic activity/Vol]35 U/XFidjey02-223Kmn [facility] Physician GroupComment on above:Performed By: #### HS TROP, CK #### [place] [address] USAGlucose Poct Glucometerson 94-82-4134Hmpjsem [Mass/Vol]130 mg/dLNormalThe [facility] Physician [facility] CenterComment on above:Result Comment: Random Glucose Reference Range is dependent on time and content of last meal. Glucose of more than 200 mg/dL in a nonstressed, ambulatory subject supports the diagnosis of Diabetes Mellitus. PERFORMED BY: [place] [id number] PATHOLOGIST BACK ORDER CLERK EDIL LEMUS M.D.Performed By: #### GLULS #### Point of Care testing ,Urfntem3Mam0: Cleaned MeterNoUNC Health Physician [facility] Medical CenterComment on above: Result Comment: PERFORMED BY: [place] [id number] PATHOLOGIST BACK ORDER CLERK EDIL LEMUS M.D.Performed By: #### HS TROP, CK #### [place] [address] USAGlucose [Mass/Vol]170 mg/dLPalm Springs General Hospital Physician [facility] CenterComment on above:Result Comment: Random Glucose Reference Range is dependent on time and content of last meal. Glucose of more than 200 mg/dL in a nonstressed, ambulatory subject supports the diagnosis of Diabetes Mellitus.Performed By: #### HS TROP, CK #### [place] [address] USATroponin I High Sensitivityon 85-68-3462Kagmrekx I High Zwjvdwaybwe426.3 pg/mLOff scale high0.0-20.0The [facility] Physician [facility] CenterComment on above:Result Comment: Critical Result : Called to and read back by: BRITTANY MORRIS at: 07/18/2023 21:03:42 by:DC PERFORMED BY: [address] [address] PATHOLOGIST BACK ORDER CLERK EDIL LEMUS M.D.Performed By: #### HS TROP, CK #### [place] [id number] USATroponin I High Psawcplcjix463.1 pg/mLOff scale high 0.0-20.0The [facility] Physician GroupComment on above:Result Comment: Critical Result : Called to and read back by: HOWARD GAITAN at: 07/18/2023 17:14:33 by:DC PERFORMED BY: [address] [address] PATHOLOGIST BACK ORDER CLERK EDIL LEMUS M.D.Performed By: #### HS TROP, CK #### [facility] [address] [place] [address] USATroponin I High Hhzklkhxenb672.8 pg/mLOff scale high 0.0-20.0The [facility] Physician GroupComment on above:Result Comment: Critical Result : Called to and read back by: HOWARD FELIPE at: 07/18/2023 16:00:13 by:ANGELA PERFORMED BY: [facility] [address] [place] [address] PATHOLOGIST BACK ORDER CLERK EDIL LEMUS M.D.Performed By: #### HS TROP, CK #### [facility] [address] [place] [address] GPSWrY1x (Bld) [Mass fraction]on 92-04-9702N6B HEMOGLOBIN5.9 [facility] SeeMe Other a1c CytoPherxStudent Loan [employer] Other Microalbumin Analyzeron 60-25-0515Tndefrd DL <= 20 mg/L (U) [Mass/Vol]30-300mg/[facility] [employer] Other albumin Test strip detection limit <= 20 mg/L (U) [Mass/Vol]150mg/dLStudent Loan Hero [employer] Other Creatinine (U) [Mass/Vol]300md/[employer] Other HbA1c (Bld) [Mass fraction]on 21-14-5694H6Q HEMOGLOBIN 5.2Nmissouri [facility] [employer] Other a1c CytoPherxStudent Loan Hero [employer] Other HbA1c (Bld) [Mass fraction]on 05-88-4684G6M HEMOGLOBIN 6.4[place] [employer] Other Microalbumin Analyzeron 17-92-6786Ergxyxu DL <= 20 mg/L (U) [Mass/Vol]30-300 mgScalix Other albumin Test strip detection limit <= 20 mg/L (U) [Mass/Vol]150 mgScalix Other Creatinine (U) [Mass/Vol]100 mgNort [employer] Other Urinalysis - AUTOMATEDon 88-84-0495Sxaygaexsk (U) cloudyNmissouri baptist hospital-s[facility] [employer] Other Bilirubin Ql (U)NegativeRiver Falls [employer] Other Color (U)yellowRiver [place] [employer] Other Glucose Ql (U)NegativeR[place] [employer] Other Hemoglobin Ql (U)smallR[place] [employer] Other Ketones Ql (U)[facility] [employer] Other Leukocyte esterase Test strip Ql (U)[place] [employer] Other Nitrite Ql (U)NegativeR[place] [employer] Other pH (U)7.5 [pH][place] [employer] Other Protein Ql (U)30 mgR[place] [employer] Other Specific gravity (U) [Rel density]1.020[place] [employer] Other Urobilinogen (U) [Mass/Vol]0.2 mg/dLRiver Falls [employer] Other Urinalysis - AUTOMATEDNosaint john's [facility] [employer] Other HbA1c (Bld) [Mass fraction]on [id number] HEMOGLOBIN 8.0rt [employer] Other a1c HEMOGLOBINStudent Loan Hero [employer] Other HbA1c (Bld) [Mass fraction]on [id number] HEMOGLOBIN 7.2Nmiss[facility] [employer] Other a1c HEMOGLOBINRiver [place] [employer] Other XR WRIST LT MIN 3 Von [id number] WRIST LT MIN 3 VXR WRIST LT MIN 3 V: HISTORY: Pain [...] Electronically authenticated by: DAGOBERTO ESTRELLA Date: 2020-08-13 22:30[facility] HospitalCULTURE BLOODon [id number] examination of blood, cultureCulture Observations: S.hominis in aerobic bottle. Culture Observations: [...] >=8 R F Clindamycin <=0.25 S F Quinupristin/Dalfopristin <=0.25 S F Linezolid 2 S F Vancomycin 1 S F Tetracycline <=1 S F Rifampicin <=0.5 S F Trimethoprim/Sulfamethoxazole 80 R F Oxacillin 0.5 R FNAultman Alliance Community HospitalComment on above:Performed By: #### CVDRPD #### [facility] Laboratory [address] [place] [address] [facility] BLOODon [id number] examination of blood, culture Culture Observations: Growth in both aerobic and anaerobic bottles Isolate 1 Escherichia coli Growth of ORGANISM 1 Escherichia coli ANTIBIOTIC M.I.C RX STATUS Ampicillin <=2 S F Ampicillin/Sulbactam <=2 S F Piperacillin/Tazobactam <=4 S F Cefazolin <=4 S F Ceftazidime <=1 S F Ceftriaxone <=1 S F Ertapenem <=0.5 S F Imipenem <=0.25 S F Amikacin <=2 S F Gentamicin <=1 S F Tobramycin <=1 S F Ciprofloxacin <=0.25 S F Levofloxacin <=0.12 S F Trimethoprim/Sulfamethoxazole <=20 S FNormalThe [facility] NorthComment on above:Performed By: #### CVDRPD #### [facility] [address] [place] [address] Olimpia KarenCBC AUTO DIFFon [id number] #0.0 103/ulNormal0.0-0.1The [facility] NorthComment on above:Performed By: #### CBC #### [facility] [address] [place] [address] Olimpia KarenBasophils/100 WBC (Bld)0.5 %Normal0.2-2.0The [facility] Comment on above:Performed By: #### CBC #### [facility] [address] [place] [address] Olimpia KarenEO #0.1 103/ulNormal0.0-0.7The [facility] Medical Centerment on above: Performed By: #### CBC #### [facility] [address] [place] [address] Olimpia KarenEosinophils/100 WBC (Bld)1.5 %Normal0.9-7.0The [facility] Comment on above:Performed By: #### CBC #### [facility] [address] [place] [address] Olimpia KarenErythrocyte distribution width (RBC) [Ratio]15.1 %Critically high 11.0-15.0The [facility] NorthComment on above:Performed By: #### CBC #### [facility] [address] [place] [address] Olimpia KarenHematocrit (Bld) [Volume fraction]26.8 %Critically low42.0-54.0The [facility] NorthComment on above:Performed By: #### CBC #### [facility] [address] [place] [address] Olimpia KarenHemoglobin (Bld) [Mass/Vol]8.7 g/dLCritically low14.0-18.0The [facility] HospitalComment on above:Performed By: #### CBC #### [facility] [address] [address] Olimpia KarenIG #0.05 10e3/ulCritically high0.00-0.03The [facility] NorthComment on above:Performed By: #### CBC #### [facility] [address] [place] [address] Olimpia KarenIG %0.6 %Critically high0.0-0.5The [facility] NorthComment on above:Performed By: #### CBC #### [facility] [address] [place] [address] Olimpia KarenLYMPH #1.2 103/ulNormal1.2-3.8The [facility] NorthComment on above: Performed By: #### CBC #### [facility] [address] [place] [address] Olimpia KarenLymphocytes/100 WBC (Bld)14.9 %Critically low20.5-60.0The [facility] NorthComment on above:Performed By: #### CBC #### [facility] [address] [place] [address] Olimpia KarenMANUAL DIFF REQNONormalThe [facility] NorthComment on above: Performed By: #### CBC #### [facility] [address] [place] [address] Olimpia KarenMCH (RBC) [Entitic mass]34.9 pgCritically high25.9-34.0The [facility] NorthComment on above:Performed By: #### CBC #### [facility] [address] [place] [address] Olimpia KarenMCHC (RBC) [Mass/Vol]32.5 g/zRGwfpll63.9-35.2The [facility] Comment on above:Performed By: #### CBC #### [facility] [address] [place] [address] Olimpia KarenMCV (RBC) [Entitic vol]107.6 fLCritically high80.0-94.0The [facility] NorthComment on above:Performed By: #### CBC #### [facility] [address] [address] Olimpia KarenMONO #0.6 103/ulNormal0.3-0.8The [facility] NorthComment on above: Performed By: #### CBC #### [facility] [address] [address] Olimpia KarenMonocytes/100 WBC (Bld)7.7 %Normal1.7-12.0The [facility] Comment on above:Performed By: #### CBC #### [facility] [address] [place] [address] Olimpia KarenNEUT #5.8 103/ulNormal1.4-6.5The [facility] NorthComment on above: Performed By: #### CBC #### [facility] [address] [place] [address] Olimpia KarenNeutrophils/100 WBC (Bld)74.8 %Vuwmci43.0-75.0The [facility] Comment on above:Performed By: #### CBC #### [facility] [address] [place] [address] Olimpia KarenPlatelet mean volume (Bld) [Entitic vol]11.5 fLNormal9.5-13.5The [facility] NorthComment on above:Performed By: #### CBC #### [facility] [address] [place] [address] Olimpia AqeweOQH348 103/ulCritically bvl095-410Ncf [facility] NorthComment on above:Performed By: #### CBC #### [facility] [address] [place] [address] Olimpia KarenRBC2.49 106/ulCritically low4.70-6.10The [facility] NorthComment on above:Performed By: #### CBC #### [facility] [address] [place] [address] Olimpia KarenWBC7.8 103/ulNormal4.0-11.0The [facility] NorthComment on above: Performed By: #### CBC #### [facility] [address] [address] Olimpia KarenPOINT OF CARE GLUCOSEon [id number] [Mass/Vol]117 mg/dL Critically tuiu15-350Jhw [facility] NorthComment on above:Performed By: #### POCGLUC #### [facility] [address] [address] Olimpia KarenPROF CHEM 8 (BAS METB)on 84-93-9473Ffhmk gap [Moles/Vol]14.1 mmol/L NormalThe [facility] NorthComment on above:Performed By: #### BMP #### [facility] [address] [place] [address] Olimpia KarenCalcium [Mass/Vol]8.1 mg/dLCritically low8.4-10.2The [facility] NorthComment on above:Performed By: #### BMP #### [facility] [address] [place] [address] Olimpia KarenChloride [Moles/Vol]105 mmol/ZYpxtqj76-520Kxm [facility] Comment on above:Performed By: #### BMP #### [facility] [address] [place] [address] Olimpia KarenCO2 [Moles/Vol]25.5 mmol/DNlsjgf99.0-30.0[facility] Comment on above:Performed By: #### BMP #### [facility] [address] [place] [address] Olimpia KarenCreatinine [Mass/Vol]1.24 mg/dLNormal0.66-1.25The [facility] Comment on above:Performed By: #### BMP #### [facility] [address] [place] [address] Olimpia KarenEGFR-AF DJIBOUTIAN>60Normal>=60The [facility] NorthComment on above: Performed By: #### BMP #### [facility] [address] [place] [address] Olimpia KarenEGFR-NON AF FTPJFPDU80 mL/min/1.60x4Fuuvinovrw low>=60The [facility] NorthComment on above:Performed By: #### BMP #### [facility] [address] [address] Olimpia KarenGlucose [Mass/Vol]109 mg/dLCritically rzew74-632BnuUk HealthcareComment on above:Performed By: #### BMP #### [facility] [address] [address] Olimpia KarenPotassium [Moles/Vol]3.6 mmol/LNormal3.4-5.0The [facility] Comment on above:Performed By: #### BMP #### [facility] [address] [address] Olimpia KarenSodium [Moles/Vol]141 mmol/UPjkaoq038-431ZykUk Healthcare Comment on above:Performed By: #### BMP #### [facility] [address] [place] [address] Olimpia KarenUrea nitrogen [Mass/Vol]9.0 mg/dLNormal9.0-20.0[facility] Comment on above:Performed By: #### BMP #### [facility] [address] [place] [address] Olimpia KarenUrea nitrogen/Creatinine [Mass ratio]7.3 mg/mgMercy Health Perrysburg HospitalComment on above:Performed By: #### BMP #### [facility] [address] [place] [address] Olimpia KarenBLOOD CULTURE ID PANELon 05-24-2020. baumanniiNot detectedMercy Health Perrysburg HospitalComment on above:Performed By: #### INFLUAB #### [facility] [address] [place] [address] Olimpia KarenBCID CONTROLSPASSMemorial Health System Selby General HospitalComment on above: Performed By: #### INFLUAB #### [facility] [address] [place] [address] Olimpia KarenBCIDBTHDBLOOD CULTURE BOTTLE [facility] Comment on above:Performed By: #### INFLUAB #### [facility] [address] [place] [address] Olimpia RxqtiJULIKI2QVTFURTOIRSTU RESISTANCE GENESMercy Health Perrysburg Hospital Comment on above:Performed By: #### INFLUAB #### [facility] [address] [place] [address] Olimpia DumasVwmihTELADS0SIZ [facility] Private HospitalComment on above:Result Comment: KPC- carbapenem resistance gene, mecA- methecillin resistance gene, van A/B- vancomycin resistance gene Note: Antimicrobial resitance can occur via multiple mechanisms. A Not Detectedresult for the FilmArray antomicrobial resistance gene assays does not indicate antimicrobial susceptibility. Subculturing is required for specis identificationand susceptibility testing of isolates.Performed By: #### INFLUAB #### [facility] [address] [place] [address] Olimpiayuriy OlsenAnioaCLSCCT4EbtssrbjSbykekTfg Bellevue HospitalComment on above:Performed By: #### INFLUAB #### [facility] [address] [place] [address] Olimpiayuriy OlsenNiukdOWDYKA1RvbzekknEggscoIug [facility]vue HospitalComment on above:Performed By: #### INFLUAB #### [facility] [address] [place] [address] Olimpia UdaryKVFNVG9MFNJJHvtsbzIgcMercy Health Perrysburg HospitalComment on above:Performed By: #### INFLUAB #### [facility] [address] [place] [address] Olimpia OlsenOnpkgOKSUFO7WNC [facility] HospitalComment on above:Result Comment: Note: All genus and species BCID FilmArray results will be verified post subculturing via Maldi-Tof MS testing methodology.Performed By: #### INFLUAB #### [facility] [address] [place] [address] Olimpia KarenBottle Set:Set 1NormalUk HealthcareCompontiac general hospital on above: Performed By: #### INFLUAB #### [facility] [address] [place] [address] Olimpia KarenBottle:AnaerobicMercy Health Perrysburg HospitalComment on above: Performed By: #### INFLUAB #### [facility] [address] [address] Olimpia KarenCandida albicansNot detectedNoLutheran Hospital HospitalComment on above:Performed By: #### INFLUAB #### [facility] [address] [address] Olimpia KarenCandida glabrataNot detectedNoLutheran Hospital HospitalComment on above:Performed By: #### INFLUAB #### [facility] [address] [address] Olimpia KarenCandida KruseiNot detectedNoLutheran Hospital HospitalComment on above:Performed By: #### INFLUAB #### [facility] [address] [address] Olimpia KarenCandida ParapsilosisNot detectedProMedica Defiance Regional Hospital HospitalComment on above:Performed By: #### INFLUAB #### [facility] [address] [address] Olimpia KarenCandida TropicalisNot detectedProMedica Defiance Regional Hospital HospitalComment on above:Performed By: #### INFLUAB #### [facility] [address] [address] Olimpia RaúlenE. Cloacae complexNot detectedMercy Health Perrysburg HospitalCompontiac general hospital on above:Performed By: #### INFLUAB #### [facility] [address] [address] Olimpia KarenEnterobacteriaceaeDetectedInvalid Interpretation CodeUk HealthcareCompontiac general hospital on above:Performed By: #### INFLUAB #### [facility] [address] [address] Olimpia KarenEnterococcusNot detectedProMedica Defiance Regional Hospital HospitalComment on above: Performed By: #### INFLUAB #### [facility] [address] [place] [address] Olimpia OlsenenEscheria coliDetectedInvalid Interpretation CodeUk HealthcareCompontiac general hospital on above:Performed By: #### INFLUAB #### [facility] [address] [address] Olimpia DumasK. oxytocaNot detectedNormalThe [facility]ade HospitalComment on above: Performed By: #### INFLUAB #### [facility] [address] [address] Olimpia KarenK. pneumoniaeNot detectedNoLutheran Hospital HospitalComment on above:Performed By: #### INFLUAB #### [facility] [address] [address] Olimpia KarenKPC Resistant GeneNot detectedNoLutheran Hospital HospitalComment on above:Performed By: #### INFLUAB #### [facility] [address] [address] Olimpia KarenList. monocytogenesNot detectedProMedica Defiance Regional Hospital HospitalComment on above:Performed By: #### INFLUAB #### [facility] [address] [address] Olimpia KarenmecA Resistant GeneNot detectedProMedica Defiance Regional Hospital HospitalComment on above:Performed By: #### INFLUAB #### [facility] [address] [address] Olimpia KarenProteusNot detectedNoLutheran Hospital HospitalComment on above: Performed By: #### INFLUAB #### [facility] [address] [address] Olimpia KarenPseud. aeruginosaNot detectedProMedica Defiance Regional Hospital HospitalComment on above:Performed By: #### INFLUAB #### [facility] [address] [address] Olimpia KarenSeratia marcescensNot detectedNoLutheran Hospital HospitalComment on above:Performed By: #### INFLUAB #### [facility] [address] [address] Olimpia KarenSite:R ARMNoLutheran Hospital HospitalComment on above:Performed By: #### INFLUAB #### [facility] [address] [place] [address] Olimpia KarenStaph. aureusNot detectedProMedica Defiance Regional Hospital HospitalComment on above:Performed By: #### INFLUAB #### [facility] [address] [address] Olimpia KarenStaphylococcusNot detectedProMedica Defiance Regional Hospital HospitalComment on above:Performed By: #### INFLUAB #### [facility] [address] [place] [address] Olimpia KarenStrep. agalactiaeNot detectedProMedica Defiance Regional Hospital HospitalComment on above:Performed By: #### INFLUAB #### [facility] [address] [place] [address] Olimpia KarenStrep. pneumoniaeNot detectedProMedica Defiance Regional Hospital HospitalComment on above:Performed By: #### INFLUAB #### [facility] [address] [place] [address] Olimpia KarenStrep. pyogenesNot detectedProMedica Defiance Regional Hospital HospitalComment on above:Performed By: #### INFLUAB #### [facility] [address] [place] [address] Olimpia KarenStreptococcusNot detectedMercy Health Perrysburg HospitalComment on above:Performed By: #### INFLUAB #### [facility] [address] [place] [address] Olimpia OlsenenvanA/B Resist. GeneNot detectedMercy Health Perrysburg HospitalComment on above:Performed By: #### INFLUAB #### [facility] [address] [place] [address] Olimpia Gonzalez CULTURE ID PANEL SUBSEQUENT05-24-2020. [email or web address] detectedMercy Health Perrysburg HospitalComment on above:Performed By: #### BCIDSUB #### [facility] [address] [place] [address] Olimpia KarenBCID CONTROLSPASSEDMercy Health Perrysburg HospitalComment on above: Performed By: #### BCIDSUB #### [facility] [address] [place] [address] Olimpia DumasBCIDBTHDBLOOD CULTURE BOTTLE INFORMATIONSelect Medical [facility] Hospital on above:Performed By: #### BCIDSUB #### [facility] [address] [place] [address] Olimpia [id number] RESISTANCE GENESMercy Health [facility] Hospital Comment on above:Performed By: #### BCIDSUB #### [facility] [address] [place] [address] Olimpia WallerSqxvjDNFDKK2ESP [facility] Private HospitalComment on above:Result Comment: KPC- carbapenem resistance gene, mecA- methecillin resistance gene, van A/B- vancomycin resistance gene Note: Antimicrobial resitance can occur via multiple mechanisms. A Not Detectedresult for the FilmArray antomicrobial resistance gene assays does not indicate antimicrobial susceptibility. Subculturing is required for specis identificationand susceptibility testing of isolates.Performed By: #### BCILILY #### [facility] [address] [place] [address] Olimpia DumasQkfqaUPDZST6RbwzkygtVwdyxlMei [facility] HospitalComment on above:Performed By: #### BCILILY #### [facility] [address] [place] [address] Olimpia DumasLcpxzAXLQUA1KxtyaydgPrzzgtCby [facility] HospitalComment on above:Performed By: #### BCILILY #### [facility] [address] [place] [address] Olimpia DumasPuxknSVXZIT8QSRIHKnnvpcUhbMercy Health Perrysburg HospitalComment on above:Performed By: #### BCILILY #### [facility] [address] [place] [address] Olimpia DumasZiurjVJXUZV0APB [facility] HospitalComment on above:Result Comment: Note: All genus and species BCID FilmArray results will be verified post subculturing via Maldi-Tof MS testing methodology.Performed By: #### BCILILY #### [facility] [address] [place] [address] Olimpia KarenBottle Set:Set 2NormalACMC Healthcare System on above: Performed By: #### BCIDSUB #### [facility] [address] [place] [address] Olimpia KarenBottle:AerobicMercy Health Perrysburg HospitalComment on above:Performed By: #### BCILILY #### [facility] [address] [address] Olimpia KarenCandida albicansNot detectedNoLutheran Hospital HospitalComment on above:Performed By: #### BCILYDIAUB #### [facility] [address] [address] Olimpia KarenCandida glabrataNot detectedNoLutheran Hospital HospitalComment on above:Performed By: #### BCILILY #### [facility] [address] [address] Olimpia KarenCandida KruseiNot detectedNoLutheran Hospital HospitalComment on above:Performed By: #### BCILILY #### [facility] [address] [address] Olimpia KarenCandida ParapsilosisNot detectedNoLutheran Hospital HospitalComment on above:Performed By: #### BCILILY #### [facility] [address] [address] Olimpia KarenCandida TropicalisNot detectedNoLutheran Hospital HospitalComment on above:Performed By: #### BCILILY #### [facility] [address] [address] Olimpia KarenE. Cloacae complexNot detectedProMedica Defiance Regional Hospital HospitalComment on above:Performed By: #### BCILILY #### Select [facility] [address] [address] [place] KarenEnterobacteriaceaeNot detectedNoLutheran Hospital HospitalComment on above:Performed By: #### BCILILY #### [facility] [address] [address] [place] KarenEnterococcusNot detectedNoLutheran Hospital HospitalComment on above: Performed By: #### BCILYDIAUB #### [facility] [address] [address] [place] KarenEscheria coliNot detectedNoLutheran Hospital HospitalComment on above:Performed By: #### BCILILY #### [facility] [address] [address] [place] KarenK. oxytocaNot detectedNoLutheran Hospital HospitalComment on above: Performed By: #### BCILILY #### [facility] [address] [address] Olimpiayuriy OlsenenK. pneumoniaeNot detectedNoLutheran Hospital HospitalComment on above:Performed By: #### BCILILY #### [facility] [address] [address] [place] KarenKPC Resistant GeneNot detectedNormSumma Health Akron Campus HospitalComment on above:Performed By: #### BCILILY #### [facility] [address] [address] [place]ia KarenList. monocytogenesNot detectedNoLutheran Hospital HospitalComment on above:Performed By: #### RICARDA #### [facility] [address] [place] [address] [place]ia KarenmecA Resistant GeneDetectedInvalid Interpretation CodeOhiohealth Marion General Hospital HospitalComment on above:Performed By: #### BCILILY #### [facility] [address] [address] [place] KarenProteusNot detectedNoLutheran Hospital HospitalComment on above: Performed By: #### RICARDA #### [facility] [address] [address] [place] KarenPseud. aeruginosaNot detectedNoLutheran Hospital HospitalComment on above:Performed By: #### BCILILY #### [facility] [address] [address] [place]ia KarenSeratia marcescensNot detectedNoLutheran Hospital HospitalComment on above:Performed By: #### BCILILY #### [facility] [address] [address] [place]ia KarenSite:left acNormalUk HealthcareComment on above:Performed By: #### BCILILY #### [facility] [address] [place] [address] Olimpia KarenStaph. aureusNot detectedNoLutheran Hospital HospitalComment on above:Performed By: #### BCIDSUB #### [facility] [address] [address] [place]ia KarenStaphylococcusDetectedInvalid Interpretation CodeThe [facility] NorthComment on above:Performed By: #### BCIDSUB #### [facility] [address] [address] [place]ia KarenStrep. agalactiaeNot detectedProMedica Defiance Regional Hospital HospitalComment on above:Performed By: #### BCIDSUB #### [facility] [address] [address] [place]limpia KarenStrep. pneumoniaeNot detectedProMedica Defiance Regional Hospital HospitalComment on above:Performed By: #### BCIDSUB #### [facility] [address] [address] [place]ia KarenStrep. pyogenesNot detectedProMedica Defiance Regional Hospital HospitalComment on above:Performed By: #### BCIDSUB #### [facility] [address] [address] [place] KarenStreptococcusNot detectedMercy Health Perrysburg HospitalComment on above:Performed By: #### BCIDSUB #### [facility] [address] [address] [place] KarenvanA/B Resist. GeneNot detectedProMedica Defiance Regional Hospital HospitalComment on above:Performed By: #### BCIDSUB #### [facility] [address] [address] [place]ia Reji. baumanniiNot detectedProMedica Defiance Regional Hospital HospitalComment on above: Performed By: #### CVDRPD #### [facility] [address] [address] [place] KarenBCID CONTROLSPASSEDMercy Health Perrysburg HospitalComment on above: Performed By: #### CVDRPD #### [facility] [address] [address] [place] KarenBCIDBTHDBLOOD CULTURE BOTTLE INFORMATIONMercy Health Perrysburg Hospital Comment on above:Performed By: #### CVDRPD #### [facility] [address] [place] [address] Olimpia [id number] RESISTANCE GENESMercy Health Perrysburg Hospital Comment on above:Performed By: #### CVDRPD #### [facility] [address] [place] [address] Olimpia [id number] [facility] Private HospitalComment on above:Result Comment: KPC- carbapenem resistance gene, mecA- methecillin resistance gene, van A/B- vancomycin resistance gene Note: Antimicrobial resitance can occur via multiple mechanisms. A Not Detectedresult for the FilmArray antomicrobial resistance gene assays does not indicate antimicrobial susceptibility. Subculturing is required for specis identificationand susceptibility testing of isolates.Performed By: #### CVDRPD #### [facility] [address] [place] [address] Olimpia OlsenSpfdxDCXOZP6BjahiqezLeyupyBfl Bellevue HospitalComment on above:Performed By: #### CVDRPD #### [facility] [address] [place] [address] Olimpia OlsenFfvjsHEYWEN9YsdtnsnuAqesarVsg Bellevue HospitalComment on above:Performed By: #### CVDRPD #### [facility] [address] [place] [address] Olimpia DumasCtfwkZNTLRU7FIZVTCkcljoCppMercy Health Perrysburg HospitalComment on above:Performed By: #### CVDRPD #### [facility] [address] [place] [address] Olimpia OlsenXsjdaHJWKON7JXJ [facility] HospitalComment on above:Result Comment: Note: All genus and species BCID FilmArray results will be verified post subculturing via Maldi-Tof MS testing methodology.Performed By: #### CVDRPD #### [facility] [address] [place] [address] Olimpia DumasBottle Set:Set 1NormalUk HealthcareCompontiac general hospital on above: Performed By: #### CVDRPD #### [facility] [address] [place] [address] Olimpia AlesiaBottle:AerobicAtrium Health Stanlyue HospitalComment on above:Performed By: #### CVDRPD #### [facility] [address] [address] [place] KarenCandida albicansNot detectedNoLutheran Hospital HospitalComment on above:Performed By: #### CVDRPD #### [facility] [address] [address] [place]ia KarenCandida glabrataNot detectedNoLutheran Hospital HospitalComment on above:Performed By: #### CVDRPD #### [facility] [address] [address] [place] KarenCandida KruseiNot detectedProMedica Defiance Regional Hospital HospitalComment on above:Performed By: #### CVDRPD #### [facility] [address] [address] [place]pia KarenCandida ParapsilosisNot detectedProMedica Defiance Regional Hospital HospitalComment on above:Performed By: #### CVDRPD #### [facility] [address] [address] [place] KarenCandida TropicalisNot detectedProMedica Defiance Regional Hospital HospitalComment on above:Performed By: #### CVDRPD #### [facility] [address] [address] [place]ia KarenE. Cloacae complexNot detectedMercy Health Perrysburg HospitalComment on above:Performed By: #### CVDRPD #### [facility] [address] [address] [place]pia KarenEnterobacteriaceaeDetectedInvalid Interpretation CodeUk HealthcareComment on above:Performed By: #### CVDRPD #### [facility] [address] [address] [place] KarenEnterococcusNot detectedMercy Health Perrysburg HospitalComment on above: Performed By: #### CVDRPD #### [facility] [address] [address] [place] KarenEscheria coliDetectedInvalid Interpretation CodeUk HealthcareComment on above:Performed By: #### CVDRPD #### [facility] [address] [address] [place]pia KarenK. oxytocaNot detectedNoLutheran Hospital HospitalComment on above: Performed By: #### CVDRPD #### [facility] [address] [address] [place] KarenK. pneumoniaeNot detectedNoLutheran Hospital HospitalComment on above:Performed By: #### CVDRPD #### [facility] [address] [address] [place]pia KarenKPC Resistant GeneNot detectedNoLutheran Hospital HospitalComment on above:Performed By: #### CVDRPD #### [facility] [address] [address] [place]pia KarenList. monocytogenesNot detectedNoLutheran Hospital HospitalComment on above:Performed By: #### CVDRPD #### [facility] [address] [address] [place]ia KarenmecA Resistant GeneNot detectedNoLutheran Hospital HospitalComment on above:Performed By: #### CVDRPD #### [facility] [address] [address] [place] KarenProteusNot detectedProMedica Defiance Regional Hospital HospitalComment on above: Performed By: #### CVDRPD #### [facility] [address] [address] [place] KarenPseud. aeruginosaNot detectedNoLutheran Hospital HospitalComment on above:Performed By: #### CVDRPD #### [facility] [address] [address] [place]p[address] KarenSeratia marcescensNot detectedProMedica Defiance Regional Hospital HospitalComment on above:Performed By: #### CVDRPD #### [facility] [address] [address] [place] KarenSite:R ARMNoLutheran Hospital HospitalComment on above:Performed By: #### CVDRPD #### [facility] [address] [address] [place]pia OlsenenStaph. aureusNot detectedNoLutheran Hospital HospitalComment on above:Performed By: #### CVDRPD #### [facility] [address] [place] [address] Olimpiayuriy BrisenotaphylococcusNot detectedNoLutheran Hospital HospitalComment on above:Performed By: #### CVDRPD #### [facility] [address] [address] [place]pia KarenStrep. agalactiaeNot detectedNoLutheran Hospital HospitalComment on above:Performed By: #### CVDRPD #### [facility] [address] [place] [address] Olimpia OlsenenStrep. pneumoniaeNot detectedNoLutheran Hospital HospitalComment on above:Performed By: #### CVDRPD #### [facility] [address] [place] [address] Olimpia OlsenenStrep. pyogenesNot detectedNoLutheran Hospital HospitalComment on above:Performed By: #### CVDRPD #### [facility] [address] [place] [address] [place] KarenStreptococcusNot detectedMercy Health Perrysburg HospitalComment on above:Performed By: #### CVDRPD #### [facility] [address] [place] [address] [place]limpia RaúlenvanA/B Resist. GeneNot detectedProMedica Defiance Regional Hospital HospitalComment on above:Performed By: #### CVDRPD #### [facility] [address] [place] [address] [place] KarenBNPon [id number] peptide B (Bld) [Mass/Vol]175.0 pg/mL Normal<=900.0The [facility] on above:Performed By: #### HSTROPN, BNP, CMP #### [facility] [address] [place] [address] [place]pia KarenCBC AUTO DIFFon [id number] #0.1 103/ulNormal0.0-0.1The [facility] HospitalComment on above:Performed By: #### CBC #### [facility] [address] [id number] [place]pia KarenBasophils/100 WBC (Bld)0.3 %Normal0.2-2.0The [facility] Comment on above:Performed By: #### CBC #### [facility] [address] [address] [place] KarenEO #0.0 103/ulNormal0.0-0.7The [facility]Comment on above: Performed By: #### CBC #### [facility] [address] [id number] [place] KarenEosinophils/100 WBC (Bld)0.2 %Critically low0.9-7.0The [facility] on above:Performed By: #### CBC #### [facility] [address] [place] [address] Olimpia KarenErythrocyte distribution width (RBC) [Ratio]14.6 %Zuvkha01.0-15.0The [facility] on above:Performed By: #### CBC #### [facility] [address] [place] [address] Olimpia KarenHematocrit (Bld) [Volume fraction]28.0 %Critically low42.0-54.0The [facility] on above:Performed By: #### CBC #### [facility] [address] [place] [address] Olimpia KarenHemoglobin (Bld) [Mass/Vol]9.2 g/dLCritically low14.0-18.0The [facility] on above:Performed By: #### CBC #### [facility] [address] [place] [address] Olimpia KarenIG #0.12 10e3/ulCritically high0.00-0.03The [facility] on above:Performed By: #### CBC #### [facility] [address] [place] [address] Olimpia KarenIG %0.7 %Critically high0.0-0.5The [facility] on above:Performed By: #### CBC #### [facility] [address] [place] [address] O[address]pia OlsenenLYMPH #3.1 103/ulNormal1.2-3.8The [facility] NorthComment on above: Performed By: #### CBC #### [facility] [address] [place] [address] Olimpia KarenLymphocytes/100 WBC (Bld)17.9 %Critically low20.5-60.0Uk HealthcareComment on above:Performed By: #### CBC #### [facility] [address] [place] [address] [place]pia KarenMANUAL DIFF REQNONormalThe [facility] NorthComment on above: Performed By: #### CBC #### [facility] [address] [place] [address] Olimpia KarenMCH (RBC) [Entitic mass]34.7 pgCritically high25.9-34.0Uk HealthcareComment on above:Performed By: #### CBC #### [facility] [address] [place] [address] Olimpia KarenMCHC (RBC) [Mass/Vol]32.9 g/nSTacgww05.9-35.2[facility] Comment on above:Performed By: #### CBC #### [facility] [address] [place] [address] Olimpia KarenMCV (RBC) [Entitic vol]105.7 fLCritically high80.0-94.0Uk HealthcareComment on above:Result Comment: macrocytosis3+ hypochromic2+Performed By: #### CBC #### [facility] [address] [place] [address] [place] KarenMONO #0.9 103/ulCritically high0.3-0.8ThTwin City HospitalComment on above:Performed By: #### CBC #### [facility] [address] [place] [address] Olimpia KarenMonocytes/100 WBC (Bld)4.9 %Normal1.7-12.0The [facility] Comment on above:Performed By: #### CBC #### [facility] [address] [place] [address] Olimpia MortonUT #13.3 103/ulCritically high1.4-6.5The [facility] HospitalComment on above:Performed By: #### CBC #### [facility] [address] [place] [address] Olimpia OlsenenNeutrophils/100 WBC (Bld)76.0 %Critically high43.0-75.0The [facility] HospitalComment on above:Performed By: #### CBC #### [facility] [address] [place] [address] Olimpia DumasPlatelet mean volume (Bld) [Entitic vol]12.1 fLNormal9.5-13.5The [facility] NorthComment on above:Performed By: #### CBC #### [facility] [address] [place] [address] O[address]pia [id number] 103/ulCritically [id number] [facility] NorthComment on above:Performed By: #### CBC #### [facility] [address] [place] [address] Olimpia KarenRBC2.65 106/ulCritically low4.70-6.10The [facility] NorthComment on above:Performed By: #### CBC #### [facility] [address] [place] [address] Olimpia UeapyGFX43.5 103/ulCritically high4.0-11.0The [facility] NorthComment on above:Performed By: #### CBC #### [facility] [address] [place] [address] Olimpia KarenBASO #0.1 103/ulNormal0.0-0.1The [facility] on above: Performed By: #### INFLUAB #### [facility] [address] [place] [address] Olimpia KarenBasophils/100 WBC (Bld)0.4 %Normal0.2-2.0The [facility] Comment on above:Performed By: #### INFLUAB #### [facility] [address] [place] [address] Olimpia KarenEO #0.1 103/ulNormal0.0-0.7The [facility] on above: Performed By: #### INFLUAB #### [facility] [address] [place] [address] Olimpia KarenEosinophils/100 WBC (Bld)0.7 %Critically low0.9-7.0The [facility] on above:Performed By: #### INFLUAB #### [facility] [address] [place] [address] Olimpia KarenErythrocyte distribution width (RBC) [Ratio]14.7 %Zaohdr08.0-15.0The [facility]Comment on above:Performed By: #### INFLUAB #### [facility] [address] [place] [address] Olimpia KarenHematocrit (Bld) [Volume fraction]32.2 %Critically low42.0-54.0The [facility]Comment on above:Performed By: #### INFLUAB #### [facility] [address] [place] [address] Olimpia KarenHemoglobin (Bld) [Mass/Vol]10.5 g/dLCritically low14.0-18.0The [facility] on above:Performed By: #### INFLUAB #### [facility] [address] [place] [address] Olimpia KarenIG #0.08 10e3/ulCritically high0.00-0.03The [facility] on above:Performed By: #### INFLUAB #### [facility] [address] [place] [address] Olimpia KarenIG %0.7 %Critically high0.0-0.5The [facility] on above:Performed By: #### INFLUAB #### [facility] [address] [place] [address] Olimpia KarenLYMPH #0.8 103/ulCritically low1.2-3.8The [facility]Comment on above:Performed By: #### INFLUAB #### [facility] [address] [place] [address] Olimpia OlsenenLymphocytes/100 WBC (Bld)7.2 %Critically low20.5-60.0The [facility]Comment on above:Performed By: #### INFLUAB #### [facility] [address] [place] [address] Olimpia KarenMANUAL DIFF REQNONormalThe [facility]Comment on above: Performed By: #### INFLUAB #### [facility] [address] [place] [address] Olimpia KarenMCH (RBC) [Entitic mass]34.9 pgCritically high25.9-34.0The [facility]Comment on above:Performed By: #### INFLUAB #### [facility] [address] [place] [address] Olimpia KarenMC (RBC) [Mass/Vol]32.6 g/fETyniuz74.9-35.2[facility] Comment on above:Performed By: #### INFLUAB #### [facility] [address] [place] [address] Olimpia OlsenenMCV (RBC) [Entitic vol]107.0 fLCritically high80.0-94.0Uk HealthcareComment on above:Result Comment: hypochromia 2+ macrocytosis 3+Performed By: #### INFLUAB #### [facility] [address] [place] [address] Olimpia OlsenenMONO #0.3 103/ulNormal0.3-0.8The [facility]Comment on above: Performed By: #### INFLUAB #### [facility] [address] [place] [address] Olimpia KarenMonocytes/100 WBC (Bld)2.7 %Normal1.7-12.0[facility] Comment on above:Performed By: #### INFLUAB #### [facility] [address] [place] [address] Olimpia MortonUT #10.2 103/ulCritically high1.4-6.5The [facility] NorthComment on above:Performed By: #### INFLUAB #### [facility] [address] [place] [address] Olimpia Mortonutrophils/100 WBC (Bld)88.3 %Critically high43.0-75.0The [facility]Comment on above:Performed By: #### INFLUAB #### [facility] [address] [place] [address] Olimpia OlsenenPlatelet mean volume (Bld) [Entitic vol]11.6 fLNormal9.5-13.5The [facility] NorthComment on above:Performed By: #### INFLUAB #### [facility] [address] [place] [address] Olimpia [id number] 103/piVggldo434-358Wth [facility] NorthComment on above: Performed By: #### INFLUAB #### [facility] [address] [place] [address] Olimpia OlsenenRBC3.01 106/ulCritically low4.70-6.10The [facility] [facility] on above:Performed By: #### INFLUAB #### [facility] [address] [place] [address] Olimpia OlsenenWBC11.5 103/ulCritically high4.0-11.0The [facility] on above:Performed By: #### INFLUAB #### [facility] [address] [place] [address] Olimpia KarenCTA CHEST WO W CONon [id number] CHEST WO W CONEXAMINATION: CTA CHEST WO W CON HISTORY: CHEST [...] Electronically authenticated by: CAT WEST Date: 2020-05-24 01:04[facility] A AND B AGon [id number] HospitalCompontiac general hospital on above:Result Comment: Negative for Flu A protein angiten. Infection due to Flu A cannot be ruled out. FluA angiten in the sample may be below the detection limit of the test.Performed By: #### INFLUAB #### [facility] [address] [place] [address] KarenINFLUBNTrinity Health System West Campus on above: Result Comment: Negative for Flu B protein antigen. Infection due to Flu B cannot be ruled out. FluB antigen in the sample may be below the detection limit of the test.Performed By: #### INFLUAB #### [facility] [address] [place] [address] Olimpia KarenINFLUENZA A AGNegativeNormalNEGATIVE SEE COMMENTThe [facility] on above:Performed By: #### INFLUAB #### [facility] [address] [place] [address] Olimpia KarenINFLUENZA B AGNegativeNormalNEGATIVE SEE COMMENTThe [facility] on above:Performed By: #### INFLUAB #### [facility] [address] [place], [place] [address] Olimpia KarenINTERNAL CONTROLSWithin Normal LimitsNormalWithin Normal LimitsThe [facility] on above:Performed By: #### INFLUAB #### [facility] [address] [place] [address] Olimpia KarenLACTATE/LACTIC ACIDon 75-64-8420Wzqkuyk [Moles/Vol]1.1 mmol/LNormal 0.7-2.0The [facility] on above:Performed By: #### CVDRPD #### [facility] [address] [place] [address] Olimpia KarenLactate [Moles/Vol]2.9 mmol/LCritically high0.7-2.0The [facility] on above:Result Comment: test repeated critical value verified Performed By: #### INFLUAB #### [facility] [address] [place] [address] Olimpia KarenPROF 14(COMP METB)on 68-08-5609Umkjvjd [Mass/Vol]2.8 g/dLCritically low3.5-5.0The [facility] on above:Performed By: #### HSTROPN, BNP, CMP #### [facility] [address] [place] [address] Olimpia KarenAlbumin/Globulin [Mass ratio]0.5 {ratio}NormalUk Healthcare Comment on above:Performed By: #### HSTROPN, BNP, CMP #### [facility] [address] [place] [address] Olimpia KarenALP [Catalytic activity/Vol]111 U/HYhocck22-681Yog [facility] Comment on above:Performed By: #### HSTROPN, BNP, CMP #### [facility] [address] [place] [address] Olimpia KarenALT [Catalytic activity/Vol]11 U/LCritically rhv45-92Onj [facility] NorthComment on above:Performed By: #### HSTROPN, BNP, CMP #### [facility] [address] [place] [address] Olimpia KarenAnion gap [Moles/Vol]11.6 mmol/LNormalThe [facility] NorthComment on above:Performed By: #### SITA BNP, CMP #### [facility] [address] [place] [address] Olimpia KarenAST [Catalytic activity/Vol]16 U/LCritically dfh54-17Qim [facility] NorthComment on above:Performed By: #### SITA BNP, CMP #### [facility] [address] [place] [address] Olimpia KarenBilirubin [Mass/Vol]0.4 mg/dLNormal0.2-1.3TKettering Health [facility] Comment on above:Performed By: #### SITA BNP, CMP #### [facility] [address] [place] [address] Olimpia KarenCalcium [Mass/Vol]9.1 mg/dLNormal8.4-10.2[facility] Comment on above:Performed By: #### SITA BNP, CMP #### [facility] [address] [place] [address] Olimpia KarenChloride [Moles/Vol]100 mmol/DNzmarz63-040Ltz [facility] Comment on above:Performed By: #### SITA BNP, CMP #### [facility] [address] [place] [address] Olimpia KarenCO2 [Moles/Vol]27.5 mmol/WRspjux36.0-30.0[facility] Comment on above:Performed By: #### ALTAFTROPN, BNP, CMP #### [facility] [address] [place] [address] Olimpia KarenCreatinine [Mass/Vol]1.36 mg/dLCritically high0.66-1.25The [facility] NorthComment on above:Performed By: #### ALTAFTROPN, BNP, CMP #### [facility] [address] [place] [address] Olimpia KarenEGFR-AF DJIBOUTIAN>60Normal>=60The [facility] on above: Performed By: #### ALTAFTROPN, BNP, CMP #### [facility] [address] [place] [address] Olimpia KarenEGFR-NON AF ONQGRTOC04 mL/min/1.86v1Luheggxcws low>=60The [facility] North[facility] on above:Performed By: #### ALTAFTROPN, BNP, CMP #### [facility] [address] [place] [address] Olimpia KarenGlobulin (S) [Mass/Vol]5.5 g/dLNormalThe [facility] NorthComment on above:Performed By: #### HSTROPN, BNP, CMP #### [facility] [address] [place] [address] Olimpia KarenGlucose [Mass/Vol]197 mg/dLCritically zvxs76-865Hiq [facility] Centerment on above:Performed By: #### HSTROPN, BNP, CMP #### [facility] [address] [place] [address] Olimpia KarenPotassium [Moles/Vol]4.1 mmol/LNormal3.4-5.0The [facility] Comment on above:Performed By: #### HSTROPN, BNP, CMP #### [facility] [address] [place] [address] Olimpia KarenProtein [Mass/Vol]8.3 g/dLCritically high6.1-8.2The [facility] Centerment on above:Performed By: #### HSTROPN, BNP, CMP #### [facility] [address] [place] [address] Olimpia KarenSodium [Moles/Vol]135 mmol/LCritically ibu086-269Yxy [facility] Centerment on above:Performed By: #### HSTROPN, BNP, CMP #### [facility] [address] [place] [address] Olimpia KarenUrea nitrogen [Mass/Vol]9.0 mg/dLNormal9.0-20.0The [facility] Comment on above:Performed By: #### HSTROPN, BNP, CMP #### [facility] [address] [address] Olimpia KarenUrea nitrogen/Creatinine [Mass ratio]6.6 mg/mgNormalThe [facility] NorthComment on above:Performed By: #### HSTROPN, BNP, CMP #### [facility] [address] [id number] Olimpia KarenPROF CHEM 8 (BAS METB)on 37-57-4579Jrifr gap [Moles/Vol]10.7 mmol/L NormalThe [facility] NorthComment on above:Performed By: #### INFLUAB #### [facility] [address] [address] Olimpia KarenCalcium [Mass/Vol]8.4 mg/dLNormal8.4-10.2The [facility] Comment on above:Performed By: #### INFLUAB #### [facility] [address] [place] [address] Olimpia KarenChloride [Moles/Vol]104 mmol/HHbrhgo45-904Yru [facility] Comment on above:Performed By: #### INFLUAB #### [facility] [address] [place] [address] Olimpia KarenCO2 [Moles/Vol]27.6 mmol/LSpmdzk21.0-30.0The [facility] Comment on above:Performed By: #### INFLUAB #### [facility] [address] [place] [address] Olimpia KarenCreatinine [Mass/Vol]1.31 mg/dLCritically high0.66-1.25The [facility] on above:Performed By: #### INFLUAB #### [facility] [address] [address] Olimpia KarenEGFR-AF DJIBOUTIAN>60Normal>=60The [facility] on above: Performed By: #### INFLUAB #### [facility] [address] [place], [place] [address] Olimpia KarenEGFR-NON AF DSLKSTKB02 mL/min/1.07c3Bbfhrirkqy low>=60The [facility] on above:Performed By: #### INFLUAB #### [facility] [address] [address] Olimpia KarenGlucose [Mass/Vol]133 mg/dLCritically hxue24-858FieUk HealthcareComment on above:Performed By: #### INFLUAB #### [facility] [address] [address] Olimpia KarenPotassium [Moles/Vol]4.3 mmol/LNormal3.4-5.0[facility] Comment on above:Performed By: #### INFLUAB #### [facility] [address] [address] Olimpia KarenSodium [Moles/Vol]138 mmol/QMtsxcj429-826ZdwUk Healthcare Comment on above:Performed By: #### INFLUAB #### [facility] [address] [place] [address] Olimpia KarenUrea nitrogen [Mass/Vol]9.0 mg/dLNormal9.0-20.0[facility] Comment on above:Performed By: #### INFLUAB #### [facility] [address] [place] [address] Olimpia KarenUrea nitrogen/Creatinine [Mass ratio]6.9 mg/mgNoAshtabula County Medical CenterComment on above:Performed By: #### INFLUAB #### [facility] [address] [place] [address] Olimpia KarenPROTIMEon 13-83-5728YXB Coag (PPP) [Relative time]1.05 {INR}Normal The [facility] on above:Performed By: #### CVDRPD #### [facility] [address] [place] [address] Olimpia KarenINR GUIDELINESSEE BELOWMercy Health Perrysburg HospitalComment on above: Result Comment: DESIRED INR: 2.0 - 3.0 CONDITIONS NOT LISTED BELOW 2.5 - 3.5 FOR PROSTHETIC HEART VALVE REPLACEMENT 2.5 - 3.5 RECURRENT THROMBOSISPerformed By: #### CVDRPD #### [facility] [address] [place] [address] Olimpia KarenPT Coag (PPP) [Time]11.4 sNormal9.0-11.6The [facility] on above:Performed By: #### CVDRPD #### [facility] [address] [place] [address] Olimpia DumasPTTon 29-71-9313oXFG Coag (Bld) [Time]29.1 yArrexa30.3-36.2The [facility] NorthComment on above:Performed By: #### CVDRPD #### [facility] [address] [place] [address] Olimpia DumasRapiwillis Covid-19 PCR (CVDRPD)on 03-46-9186EEBY-CoV-2 (COVID-19) RNA ARSENIO+probe Ql (Unsp spec)Not detectedNormalNOT DETECTEDThe [facility] Comment on above:Result Comment: This test is not yet approved or cleared by the [place] Food and Drug Administration (FDA). This test was developed by [employer], [place], [place]. The performance characteristics of this test were validated by The [facility]. The results are not intended to be used as the sole means for clinical diagnosis or patient management decisions. The [facility] is authorized under Clinical Laboratory Improvement Amendments (CLIA) to perform high- complexity testing. When diagnostic testing is negative, the possibility of a false negative should be considered in the context of a patient's recent exposures and the presence of clinical signs and symptoms consistent with SARS-CoV-2.Performed By: #### CVDRPD #### [facility] [address] [place] [address] Olimpia OlsenenTROPONIN, HIGH SENSITIVITYon 34-38-0329NLZFUZ14.1 pg/mLNormal 4.0-42.2The [facility] on above:Result Comment: CUT-OFF POINTS HAVE BEEN ESTABLISHED BASED ON THE FOURTH UNIVERSAL DEFINITIONS OF MYOCARDIAL INFARCTION. THE UPPER REFERENCE LIMIT (URL) OF TROPONIN, DEFINED THE 99TH PERCENTILE OF cTnI DISTRIBUTION IN A REFERENCE POPULATION, HAS BEEN CONFIRMED THE DECISION THRESHOLD FOR VT DIAGNOSIS.Performed By: #### INFLUAB #### [facility] [address] [place] [address] Olimpia OlsenVlxvwZKQUMQ37.8 pg/mLNormal4.0-42.2Uk HealthcareComment on above: Result Comment: CUT-OFF POINTS HAVE BEEN ESTABLISHED BASED ON THE FOURTH UNIVERSAL DEFINITIONS OF MYOCARDIAL INFARCTION. THE UPPER REFERENCE LIMIT (URL) OF TROPONIN, DEFINED THE 99TH PERCENTILE OF cTnI DISTRIBUTION IN A REFERENCE POPULATION, HAS BEEN CONFIRMED THE DECISION THRESHOLD FOR VT DIAGNOSIS.Performed By: #### CVDRPD #### [facility] [address] [place], [place] [address] Olimpia BarrettSTROP10.8 pg/mLNormal4.0-42.2The [facility] on above: Result Comment: CUT-OFF POINTS HAVE BEEN ESTABLISHED BASED ON THE FOURTH UNIVERSAL DEFINITIONS OF MYOCARDIAL INFARCTION. THE UPPER REFERENCE LIMIT (URL) OF TROPONIN, DEFINED THE 99TH PERCENTILE OF cTnI DISTRIBUTION IN A REFERENCE POPULATION, HAS BEEN CONFIRMED THE DECISION THRESHOLD FOR VT DIAGNOSIS.Performed By: #### HSTROPN, BNP, CMP #### [facility] [address] [id number] Olimpia OlsenenXR CHEST 1 Von [id number] CHEST 1 VCHEST RADIOGRAPH: HISTORY: SHORTNESS OF BREATH. COMPARISON: Chest 01/23/2019. TECHNIQUE: AP radiograph of was performed of the chest. FINDINGS: SUPPORT APPARATUS/POST-SURGICAL CHANGES: Median sternotomy wires in place. CARDIOMEDIASTINAL [...] Electronically authenticated by: DAGOBERTO ESTRELLA Date: 2020-05-23 22:50NormMiddletown HospitalAST (SGOT)on 76-66-4438XPR enzyme act/vol19 U/GQhnvdk56-59JOB HealthcareComment on above:Performed By: #### [id number] #### [facility] [address] [place], [place] [address]Oeuyodhtmiha 60-23-0914Mgibzgjxzb mass conc1.03 mg/dLNormal 0.50-1.30EMH HealthcareComment on above:Performed By: #### [id number] #### [facility] [address] [place], [place] [address]OXE/1.73 sq M.predicted MDRD vol rate/areamL/min/{1.73_m2}Normal EM HealthcareComment on above:Result Comment: Interpretation for Chronic Kidney Disease: Stages 1&2 >60 Healthy or potential kidney damage. Mild decrease of GFR. Stage 3 30-59 Moderate decrease of GFR. Stage 4 15-29 Severe decrease of GFR. Stage 5 <15 Kidney failure or on dialysis.Performed By: #### [id number] #### [facility] [address] [place], [place] [address]Edusofvrhts Panelon 37-53-1586Jbije gap molar conc11 mmol/L Boaqet86-06BWD HealthcareComment on above:Performed By: #### [id number] #### [facility] [address] [place], [place] [address]Rlnvamic molar dgwq938 mmol/WUeaizk63-553QDQ HealthcareComment on above:Performed By: #### [id number] #### [facility] [address] [place], [place] [address]UHF1 molar conc (Bld)33 mmol/BGtrk20-58WQL HealthcareComment on above:Performed By: #### [id number] #### [facility] [address] [place], [place] [address]Hevpetksf molar conc4.0 mmol/LNormal3.5-5.1EMH HealthcareComment on above:Performed By: #### [id number] #### [facility] [address] [place], [place] [address]Pedoxh molar hgzr173 mmol/KDlgqec329-301BAJ HealthcareComment on above:Performed By: #### [id number] #### [facility] [address] [place], [place] [address]Mehqk Panelon 10-27-3796Ljfzipnderz in HDL mass conc44 mg/dL NormalEMH HealthcareComment on above:Result Comment: Normal Mod Risk High Risk 5-9 >48 42-48 <42 10-14 >45 40-45 <40 15-19 >38 34-38 <34 Adult >39Performed By: #### [id number] #### [facility] [address] [place], [place] [address]Iifqcetgtqr in LDL mass conc87 mg/dLNormal<130[facility] Comment on above:Performed By: #### [id number] #### [facility] [address] [place], [place] [address]Xajtelwvcer in VLDL mass conc19 mg/dLNormal<30[facility] Comment on above:Performed By: #### [id number] #### [facility] [address] [place], [place] [address]Ioqyhuwcpjs mass fkbk845 mg/dLNormal<200EMH HealthcareComment on above:Performed By: #### [id number] #### [facility] [address] [place], [place] [address]Rgoblpfnjmq.total/Cholesterol in HDL mass ratio3.4 {ratio}Normal EMH HealthcareComment on above:Performed By: #### [id number] #### [facility] [address] [place], [place] [address]Rdztbncygpem mass conc93 mg/dLNormal<150EMH HealthcareComment on above:Result Comment: 150-199 Borderline High 200-499 High >500 Very HighPerformed By: #### [id number] #### [facility] [address] [place], [place] [address]Zmuo Nitrogenon 93-03-3131Pazr nitrogen mass conc14 mg/dLNormal 6-23EMH HealthcareComment on above:Performed By: #### [id number] #### [facility] [address] [place] [address] Vital Signs Date TimeVital SignValuePerforming EylrbavufEfsgozgz15-20-5374 07:58-0400Body ezvtjrhisat06.2 [degF]Micky Herrera MD Work Phone: bon [facility]09-24-2025 07:58-0400Diastolic blood osqaahhu56 mm[Hg]Micky Herrera MD Work Phone: Bon [facility]09-24-2025 07:58-0400Heart rate58 /minMicky Herrera MD Work Phone: [phone] [facility]09-24-2025 07:58-0400 Respiratory rate18 /minMicky Herrera MD Work Phone: [phone] [facility]09-24-2025 07:58-0461NrN5% (BldA) [Mass fraction]100 %Micky Herrera MD Work Phone: Bon [facility]09-24-2025 07:58-0400Systolic blood vvxqlrwe812 mm[Hg]Micky Hrerera MD Work Phone: Bon [facility]09-24-2025 02:15-0400Body jjpcio844.4 cmMicky Herrera MD Work Phone: Bon [facility]09-24-2025 02:15-0400Body mass index (BMI) [Ratio]33.9 kg/l7GvedvbyyMicky Herrera MD Work Phone: Bon [facility]09-24-2025 02:15-0400Body alldpu40.74 kgMicky Herrera MD Work Phone: Bon [facility]01-26-2025 12:11-0500Body ptlcdpmplqu75.81 [degF]Drew Guzman MD Work Phone: [facility] [employer] Xlzgab06-13-1647 06:19-0500Heart rate 61 /minDrew Guzman MD Work Phone: [facility] Jnrtcv86-37-3764 06:19-0500 Respiratory rate23 /minDrew Guzman MD Work Phone: [facility]01-26-2025 06:19-9604QwE2% (BldA) [Mass fraction]97 %Drew Guzman MD Work Phone: [facility] Jgqpeh82-82-3605 06:00-0500Diastolic blood ixxunojv52 mm[Hg]Drew Guzman MD Work Phone: [phone] [place], [place] 7206001-26-2025 06:00-0500Systolic blood ohkimxwh345 mm[Hg]Drew Guzman MD Work Phone: [phone] [place], [place] 7206001-26-2025 05:00-0500Body mass index (BMI) [Ratio]34.1 kg/m0Sjirdyan Guzman MD Work Phone: [phone] [place], [place] 7206001-26-2025 05:00-0500Body dyjcir77.2 kgAndyan Guzman MD Work Phone: [phone] [place], [place] 7206001-24-2025 13:28-0500Body bilfjv060.4 cmAndyan Guzman MD Work Phone: [phone] [place], [place] 7206001-16-2025 13:25-0500Body socwqntxxnh57.6 [degF]Drew Guzman MD Work Phone: [phone] [place], [place] [address]206001-16-2025 13:25-7021QyA4% (BldA) [Mass fraction]99 %Drew Guzman MD Work Phone: [phone])172-[address] [place], [place] [address]206001-16-2025 13:25-6463DjM6% (BldA) [Mass fraction]100 %Drew Guzman MD Work Phone: [phone] [place], [place] [address]206001-16-2025 13:13-3166BkD5% (BldA) [Mass fraction]100 %[place] [facility] SystemComment on above:Performed By: #### ICODE ####[facility] ([id number])[address] [place], [place] [address]66[address]92-17-5320 07:27-0500Body meqburamrlq12.8 [degF] Dana Solorzano MD Work Phone: bon [facility]12-20-2024 07:27-0500Diastolic blood pcptefex42 mm[Hg]Dana Solorzano MD Work Phone: bon [facility]12-20-2024 07:27-0500Heart rate61 /minDana Solorzano MD Work Phone: [facility] CenterQuartzy Ensyeb89-78-0601 07:27-0500 Respiratory rate18 /minDana Solorzano MD Work Phone: [facility] HospitalFynwjr47-81-2206 07:27-8860NcJ6% (BldA) [Mass fraction]99 %Dana Solorzano MD Work Phone: [facility] HospitalVncdmf26-83-2514 07:27-0500Systolic blood mm[Hg]Dana Solorzano MD Work Phone: [facility] HospitalRorrjz84-42-0110 11:26-0500Body .4 cmThaidagoberto Solorzano MD Work Phone: [facility] HospitalS[facility] HospitalBvtztq42-78-6953 11:26-0500Body mass index (BMI) [Ratio]36.25 kg/g5VmepcDana Solorzano MD Work Phone: [facility] HospitalCwmpqz05-87-4648 11:26-0500Body tixvpr04.2 kgDana Solorzano MD Work Phone: [facility] HospitalYwylvm93-85-7175 12:11-0500Body nzmplvkncfi04.0Thhannah Solorzano MD Work Phone: [facility] HospitalS[facility] HospitalMjvhls13-06-7586 23:59-0400Body qimpboidjev64.9 [degF]Julia Man MD Work Phone: [facility] Sufndy81-19-1340 23:59-0400Diastolic blood ffolqtqs28 mm[Hg]Julia Man MD Work Phone: [facility]stownFl[facility] RegionHhilfh31-89-2971 23:59-0400Heart rate 62 /Dayana Man MD Work Phone: [facility]09-03-2024 23:59-0400 Respiratory rate18 /Dayana Man MD Work Phone: [facility]09-03-2024 23:59-2640RxS1% (BldA) [Mass fraction]100 %Julia Man MD Work Phone: [phone]09-03-2024 23:59-0400Systolic blood mm[Hg]Julia Man MD Work Phone: [phone]09-02-2024 05:00-0400Body mass index (BMI) [Ratio]41.98 kg/x7OotoyxJulia Man MD Work Phone: [phone]09-02-2024 05:00-0400Body .5 kgJulia Man MD Work Phone: [phone]00[facility]08-29-2024 11:00-0400Body .4 cmJulia Man MD Work Phone: [phone]08-21-2024 12:00-0400Diastolic blood jeoydmiw49 mm[Hg]Shirley Anderson MD Work Phone: [facility]08-21-2024 12:00-0400Heart rate 85 /minShirley Anderson MD Work Phone: [phone]08-21-2024 12:00-0400 Respiratory rate24 /minShirley Anderson MD Work Phone: [phone]08-21-2024 12:00-9254PyH9% (BldA) [Mass fraction]82 %Shirley Anderson MD Work Phone: [phone]08-21-2024 12:00-0400Systolic blood fbgoqgbg969 mm[Hg]Shirley Anderson MD Work Phone: [phone]08-21-2024 04:00-0400Body mass index (BMI) [Ratio]45.47 kg/n6XgvsaShirley Anderson MD Work Phone: [phone]08-21-2024 04:00-0400Body sbwygigkrjo35.29 [degF]Shirley Anderson MD Work Phone: [phone]08-21-2024 04:00-0400Body tutxkt011.6 kgShirley Anderson MD Work Phone: [phone]08-19-2024 14:12-0400Body rmffbljihpy56.6 [degF]Shirley Anderson MD Work Phone: [phone]08-19-2024 14:12-3811LrS7% (BldA) [Mass fraction]100 %Shirley Anderson MD Work Phone: [facility]08-19-2024 14:10-3547IqG6% (BldA) [Mass fraction]100 %[facility] SystemComment on above:Performed By: #### VBG ####[facility] ([id number])[address] [place], [place] [id number] 14:23-0400Body .4 Weston Anderson MD Work Phone: [facility]07-21-2024 07:22-0400Body vjuhdpyooxc92.01 [degF]Julia Man MD Work Phone: [facility]07-21-2024 07:22-0400Diastolic blood vclgwase04 mm[Hg]Julia Man MD Work Phone: [facility]07-21-2024 07:22-0400Heart rate 61 /Dayana Man MD Work Phone: [facility]07-21-2024 07:22-0400 Respiratory rate16 /Dayana Man MD Work Phone: [facility]07-21-2024 07:22-0714OvB2% (BldA) [Mass fraction]95 %Julia Man MD Work Phone: [facility]07-21-2024 07:22-0400Systolic blood aqgofybt761 mm[Hg]Julia Man MD Work Phone: [phone]07-21-2024 05:28-0400Body mass index (BMI) [Ratio]43.79 kg/f4TmuniiJulia Man MD Work Phone: [phone]07-21-2024 05:28-0400Body .7 kgJulia Man MD Work Phone: [phone]96[facility]07-18-2024 14:24-0400Body .4 cmJulia Man MD Work Phone: [phone]05-30-2024 12:00-0400Body mjflqiewrsz39.3 [degF]DO Melanie Taylor Work Phone: [phone] [place], [place] 5027605-30-2024 12:00-0400 Diastolic blood mm[Hg]DO Melanie Taylor Work Phone: [phone] [place], [place] 5027605-30-2024 12:00-0400 Heart rate64 /EshaAdrienne Melanie Taylor Work Phone: [phone] [place], [place] 5027605-30-2024 12:00-0400 Inhaled oxygen flow rate2 L/EshaAdrienne Taylor Work Phone: [phone] [place], [place] 5027605-30-2024 12:00-0400 Respiratory rate20 /Paul Taylor Work Phone: [phone] [place], [place] 5027605-30-2024 12:00-0400 SaO2% (BldA) [Mass fraction]99 %DO Melanie Taylor Work Phone: [phone] [place], [place] 5027605-30-2024 12:00-0400 Systolic blood eaowpbtc75 mm[Hg]DO Melanie Taylor Work Phone: [phone] [place], [place] 5027605-30-2024 05:00-0400 Body .7 kgDO Melanie Claudia Work Phone: [facility]05-29-2024 12:16-0400 Body aiovno336.4 cmDO Melanie Claudia Work Phone: [facility]08-24-2023 11:00-0400 Body .4 cmMacesar Taylor Other [employer] Other 08-24-2023 11:00-0400Body mass index (BMI) [Ratio] 46.09 kg/p5KggafmiMelanie Taylor Other [employer] Other 08-24-2023 11:00-0400Body ucdewz403.05 kgMelanie Taylor Other [employer] Other 08-24-2023 11:00-0400Diastolic blood ttotyetf04 mm[Hg] Melanie Taylor Other [employer] Other 08-24-2023 11:00-0400Respiratory rate20 /minMelanie Taylor Other [employer] Other 08-24-2023 11:00-3489XmZ8% (BldA) [Mass fraction]95 % Melanie Taylor Other [employer] Other 08-24-2023 11:00-0400Systolic blood wtxocvzi973 mm[Hg] Melanie Taylor Other [employer] Other 08-29-2022 14:30-0400Body qocbcn812.4 cmMelanie Taylor Other [employer] Other 08-29-2022 14:30-0400Body mass index (BMI) [Ratio]42.9 kg/u4CfquibeMelanie Taylor Other [employer] Other 08-29-2022 14:30-0400Body qptisvnalum57.6 [degF] Melanie Taylor Other [employer] Other 08-29-2022 14:30-0400Body idtdxh25.66 kgMacesar Taylor Other [employer] Other 08-29-2022 14:30-0400Diastolic blood ewzyznxt84 mm[Hg] Melanie Taylor Other [employer] Other 08-29-2022 14:30-0400Respiratory rate20 /minMacesar Taylor Other [employer] Other 08-29-2022 14:30-5913ApZ3% (BldA) [Mass fraction]95 % Melanie Taylor Other [employer] Other 08-29-2022 14:30-0400Systolic blood pxhudetm651 mm[Hg] Melanie Taylor Other [employer] Other 05-18-2022 14:30-0400Body .4 cmMelanie Taylor Other [employer] Other 05-18-2022 14:30-0400Body mass index (BMI) [Ratio] 44.15 kg/b0QvjudfdMelanie Taylor Other [employer] Other 05-18-2022 14:30-0400Body .56 kgMattyomi Taylor Other [employer] Other 05-18-2022 14:30-0400Diastolic blood pzapfmnb60 mm[Hg] Melanie Taylor Other [employer] Other 05-18-2022 14:30-0400Respiratory rate20 /minMacesar Taylor Other [employer] Other 05-18-2022 14:30-6128YxK0% (BldA) [Mass fraction]96 % Melanie Taylor Other [employer] Other 05-18-2022 14:30-0400Systolic blood gtxqrlra062 mm[Hg] Melanie Taylor Other [employer] Other 02-17-2022 14:30-0500Body zzfudk698.4 cmMacesar Taylor Other [employer] Other 02-17-2022 14:30-0500Body mass index (BMI) [Ratio] 43.35 kg/f2JuauoibMelanie Taylor Other [employer] Other 02-17-2022 14:30-0500Body rafwjq924.7 kgMelanie Taylor Other [employer] Other 02-17-2022 14:30-0500Diastolic blood jjnrqtiy00 mm[Hg] Melanie Taylor Other [employer] Other 02-17-2022 14:30-0500Respiratory rate18 /minMattyomi Taylor Other [employer] Other 02-17-2022 14:30-9271IiJ5% (BldA) [Mass fraction]96 % Melanie Claudia Other [employer] Other 02-17-2022 14:30-0500Systolic blood lhebwwwa857 mm[Hg] Melanie Claudia Other [employer] Other 10-06-2021 16:30-0400Body upmsgf584.4 cmMacesar Taylor Other [employer] Other 10-06-2021 16:30-0400Body mass index (BMI) [Ratio] 42.96 kg/p3HpgtplsMelanie Taylor Other [employer] Other 10-06-2021 16:30-0400Body qekotblvasm65 [degF]Melanie Claudia Other [employer] Other 10-06-2021 16:30-0400Body iwzofr31.79 kgMelanie Taylor Other [employer] Other 10-06-2021 16:30-0400Diastolic blood tuvwwloa50 mm[Hg] Melanie Claudia Other [employer] Other 10-06-2021 16:30-0400Respiratory rate20 /minSheliattyomi Taylor Other [employer] Other 10-06-2021 16:30-6049NdH5% (BldA) [Mass fraction]96 % Melanie Taylor Other [employer] Other 10-06-2021 16:30-0400Systolic blood quttmafz011 mm[Hg] Melanie Taylor Other [facility] [employer] Other Encounters Encounter DateEncounter TypeCare ProviderFacilityStart: 11-26-2024 End: 07-12-0286arzovejqgrYDFMGreene Memorial Hospitaltart: 11-13-2024 End: 44-84-7029zmvqspjabfOADOX J LEDRICKCleveland Clinic Euclid Hospitaltart: 11-13-2024 End: 35-14-2988Eexrknpzku and management of inpatientNicalexandraas Lia Herrera MD Work Phone: stvz Observation UnitComment on above:Gross hematuria (Primary Dx)Start: 42-64-3624Akqunhgmot and management of inpatientRAGHEB [facility] Hospitaltart: 27-35-0377Zppvbfyjkh and management of inpatientOBI EKWENNAUniUniversity Hospitals Ahuja Medical Centertart: 11-10-2024 Evaluation and management of inpatientCALEB T [facility]red Healthcaretart: 11-09-2024 End: 43-64-2513Jreexakimn and management of inpatientRAGHEB [facility] Hospitaltart: 11-09-2024 End: 15-25-1897zrkgpygejqKQYQOhioHealth Grady Memorial Hospitaltart: 10-31-2024 End: 39-65-9947xhknwksgsdTQOGOhioHealth Grady Memorial Hospitaltart: 10-07-2024 End: 92-78-7490Zxvxbcnxl department patient visitNASHEED [facility] Hospitaltart: 08-18-2024 End: 86-93-5182Sigxbzyqj department patient visitNO [facility]art: 07-30-2024 End: 09-78-0721ezwgarzpziUQDU [facility] Hospitaltart: 07-07-2024 End: 57-97-0450wqrgkbpgvmVLNI David BURKroMedCherrington Hospital HospitalStart: 07-05-2024 End: 22-58-5526hmkoafynsmTFMYMU HARRISClinton Memorial Hospital HospitalStart: 06-27-2024 ambulatoryJOHN [facility] Hospitaltart: 06-11-2024 ambulatoryFacility:EU [place]Start: 05-18-2024 End: 17-73-5060vedccdmznrSJHGNTO NIMIT [facility] HospitalStart: 05-11-2024 End: 93-42-0047Hyattlfrpb and management of inpatientRAVI P [facility] HospitalStart: 05-09-2024 End: 54-00-3101Hnwavolqm encounterHarjinder Burden MD Work Phone: [facility] Genito-Urinary SurgeonsStart: 05-08-2024 End: 50-34-7959Sidqtsxpz encounterAyan Vargas [facility] Genito- Urinary SurgeonsStart: 05-06-2024 End: 78-47-8412Krddlsqbxv and management of inpatientNO PCP CALI [facility] HospitalStart: 03-10-2024 End: 15-83-0834Efalubhvp encounterScosmo Beasley MD Work Phone: [facility] Genito-Urinary SurgeonsStart: 03-09-2024 End: 66-84-7697qhrxpyjahhWFQTE M ELKHATIBClinton Memorial Hospital HospitalStart: 03-08-2024 End: 89-64-8913Cjcvtyufyt and management of inpatientLou Medrano MD Work Phone: [facility] - GEN 6 ProgressiveStart: 03-08-2024 End: 96-37-1074Giscyvklj department patient visitSHIRLEY Jones [facility] HospitalStart: 02-07-2024 End: 72-87-5841Mxapvbmksr and management of inpatientThais G Cintra MD Work Phone: mthz [facility] MED SURGComment on above:Acute cystitis with hematuria (Primary Dx); Kidney stone; Recurrent left pleural effusion; Anemia requiring transfusions; Hypomagnesemia; Hypokalemia; T12 compression fracture, sequela; S/P TAVR (transcatheter aortic valve replacement)Start: 01-30-2024 End: 64-49-5528Xddenmzts encounterMattyomi Ericksonlexi HER Work Phone: [facility] Georgiatart: 01-15-2024 End: 1948Zcxobhsvth and management of inpatientGARNET HEALTHErlin Mcgrath [facility] Hospitaltart: 01-04-2024 End: 45-87-2806Ryzatxiag encounterMahesh Banerjee MD Work Phone: [facility] Comment on above:apptStart: 12-19-2023 End: 83-96-6936Lvwvtyxaw encounterHeather Summer Wells PA-C Work Phone: [facility] Benign HematologyStart: 12-09-2023 End: 66-63-2077Fwzznutkv department patient visitMATTSOUTHERN OHIO MEDICAL CENTER Jerzy [facility] Hospitaltart: 12-08-2023 End: 32-43-2850Ceclgcrbn encounterHeather Tony Leyva [facility] NeuroSurgeryComment on above:missed appointmentStart: 11-27-2023 End: 59-40-4262Fqbawcvqb encounterSkyler Lake MD Work Phone: [facility] Genito-Urinary SurgeonsStart: 11-24-2023 End: 85-83-8674zfwwfvwsgaMTAKCSCX P BREWISPJerardo [facility]nesville HospitalStart: 11-23-2023 End: 55-20-6469Xpnzxwkoi encounterDolores NewmanProMedica Call CenterComment on above:Anemia; ThrombocytoteniaSevere aortic stenosis (Primary Dx)Start: 11-22-2023 End: 65-64-7531Niizodbxg encounterLaminor Smithiegowski [facility] Call Center Comment on above:New ConsultStart: 11-22-2023 End: 22-84-7520Wugpzocjhl and management of inpatientMURAD H SALEHProMedica Paynesville HospitalStart: 11-21-2023 End: 95-43-7930Modeezzca department patient visitMATTHEErlin Mcgrath WIDMERProMedica Lagrange HospitalStart: 11-10-2023 End: 34-31-3932Rymtboybx encounterSally CARTER Work Phone: [facility] CardiologyStart: 11-09-2023 End: 86-13-6607OgbhphOjptewmwv L Veselka APRN-RN REFERRAL Work Phone: [facility] Internal MedicineComment on above:Compression fracture of T12 vertebra, initial encounter [facility])Start: 11-03-2023 End: 15-49-0085Tcjzxjzne encounterSally CARTER Work Phone: [facility] CardiologyStart: 10-28-2023 End: 10-05-1131Cbyfwybpq encounterDolorlázaro MartinezSelect Medical Specialty Hospital - Youngstownca Call CenterComment on above:Order ClarificationStart: 10-28-2023 End: 63-99-1090Ipsrhmfyhk and management of inpatientSALLY Brewster OSCARProMedica Paynesville HospitalStart: 10-27-2023 End: 84-68-8586Mprmbaipyl and management of inpatientMOHAMED B ELAMINProMedica Paynesville HospitalStart: 10-27-2023 End: 53-15-7986vkkfsdpyqyKUSKSW U GILLProMedica Paynesville HospitalStart: 10-26-2023 End: 05-45-1446Fyngyspoa encounterGeorgette ReynoldsProMedica Call CenterComment on above:aortic stenosis; possible TEEStart: 79-59-1374wtrbcpvrfiYolSlwazk Hospital Ambulatory PPGStart: 10-25-2023 End: 91-37-4481Uvugdhhnzu and management of inpatientPARKVIEW HUNTINGTON HOSPITALAtilio [facility] Ambulatory PPGStart: 10-21-2023 End: 54-18-9022ryilkxnpxgZKTIW K JAINOhioHealth Van [facility]ert Hospital HospitalStart: 10-21-2023 End: 99-70-2196tuvtsbbnccSJPLUBVW L [facility] HospitalStart: 10-20-2023 End: 63-23-4652klpnklxuzkQJUXT K [facility] HospitalStart: 10-20-2023 End: 32-15-3109jyhrrfqjrrWIJNQY U [facility] HospitalStart: 10-20-2023 End: 56-17-4871hpsbnxfvxcXNAKGC U [facility] HospitalStart: 10-20-2023 End: 38-99-9860Ojfpcndirp and management of inpatientKALEEM U [facility] Greensborotart: 10-20-2023 End: 15-40-2845Uniwrnoac department patient visitGINGER SOLANOCook [facility]'s Medical Center HospitalStart: 10-18-2023 End: 00-80-2796FlvfgqJulio KEITH [facility] on above:CRISTINE (acute kidney injury) ([facility]) (Primary Dx); Chronic diastolic congestive heart failure ([facility]-HCC)Start: 10-06-2023 End: 79-82-2138bybbdjzmemJZTFG Cameron FERNANDOGrant Hospital HospitalStart: 10-05-2023 End: 34-50-6007Cudrmyugk department patient visitDAVID WARDClinton Memorial Hospital HospitalStart: 10-05-2023 End: 31-13-3137Mcppzesdja and management of inpatientDavid Alfaro DO Work Phone: [facility] - GEN 7 ICUStart: 10-04-2023 End: 63-15-5435Uelqiuqnh department patient visitPAADRIANA HOOKSGenesis Hospital HospitalStart: 10-04-2023 End: 72-55-2213Eyuckcpkm department patient visitMATTYOMI TAYLORPremier Healthtart: 10-04-2023 End: 19-45-8505Zzwonuwxf department patient visitPAUL Jesse [facility] HospitalStart: 09-21-2023 End: 24-55-3164Onzleyrzv department patient visitTIMCARLEE MILLERGenesis Hospital HospitalStart: 09-21-2023 End: 64-45-5844mlynnxobxgEAHRTNF N WIDMERPremier Healthtart: 09-21-2023 End: 78-95-3807Qmtzzemnn department patient visitTIMCARLEE MILLERGenesis Hospital HospitalStart: 09-13-2023 End: 06-95-4899gajilblvklADKIXCD Dagoberto [facility] AmbulatoryStart: 09-08-2023 End: 06-96-6057wkyesxruobGNRT D KROTZERGenesis Hospital HospitalStart: 09-08-2023 End: 77-17-8388Ttordbpnr encounterPaula Renato Barnes [place] [facility] - Medical OncologyStart: 09-08-2023 End: 84-74-2468Vmrookltt department patient visitSHIRLEY LUNDYMACKENZIEGenesis Hospital HospitalStart: 09-08-2023 End: 58-70-1532Sghnyqdwrx and management of inpatientShirley Dumont DO Work Phone: [phone] Comment on above:Acute on chronic congestive heart failure, unspecified heart failure type (CMS-HCC) (Primary Dx); Dyspnea on exertion; On potassium wasting diuretic therapyStart: 08-09-2023 End: 87-85-0552Ktajqfajh encounterPaula Renato Barnes [place] - Medical OncologyStart: 08-08-2023 End: 91-86-4185hyjxiylddtWZSGISB CLAU CHAVIRANewark Hospital HospitalStart: 91-05-6390Shx-patient / Non-visitDO Melanie Taylor Work Phone: [facility] [place] Work Phone: Start: 90-99-4780Byl-patient / Non-visitDO Melanie Taylor Work Phone: [facility] Work Phone: Start: 07-18-2023 End: 71-02-0924Mqfmixbyyw and management of inpatientDO Melanie Taylor Work Phone: [facility] [place] Progressive Work Phone: Start: 01-02-6272Qzc-patient / Non-visitDO Melanie Taylor Work Phone: [facility] [place] Work Phone: Start: 03-14-2023 End: 87-75-8835gesurhewbvQxgrymp Claudia Other [employer] Other Start: 22-20-6059Ckhgozhdr encounterMatthew WidmerFPG Family Medicine [place]Start: 01-28-2023 End: 36-00-2376hckhpftnjzMafyznw Claudia Other [employer] Other Start: 13-84-3911Wbuxjdoux encounterMatthew WidmerFPG [facility] [place]Start: 11-22-2022 End: 37-45-1375hmsyreymqaYdmaufr Claudia Other [employer] Other Start: 08-48-1287Jihtgexpr encounterMatthew WidmerFPG [facility] [place]Start: 11-17-2022 End: 99-16-7391nhvmckqgdwEbjjrvd Claudia Other [employer] Other Start: 04-47-3694Vzifblnoq encounterMatthew WidmerFPG [facility] [place]Start: 11-10-2022 End: 97-33-7542tuovqhvdreRnfixds Claudia Other [employer] Other Start: 36-16-4474Axowqewpa encounterMatthew WidmerFPG [facility] [place]Start: 11-05-2022 End: 84-70-3461mwqdxxkclwReqhxaa Claudia Other [employer] Other Start: 83-38-2371Ybutxxhtv encounterMatthew WidmerFPG [facility] [place]Start: 10-14-2022 End: 14-86-6722ubhwjjlincMagjiyp Claudia Other [employer] Other Start: 97-54-0812Qwkhoftyi for general adult medical examination without abnormal findingsMatthew WidmerFPG [facility] [place] Start: 98-25-0056Irugrrs encounter procedureMatthew WidmerFPG [facility] [place]Start: 09-30-2022 End: 70-24-5036dijidmigydDkdtxkub Kaple Other [employer] Other Start: 41-10-9561Mlrvwefpb encounterJennifer KapleFPG [facility] [place]Start: 09-27-2022 End: 63-25-2321nxyxthsanyFymneqwx Kaple Other [employer] Other Start: 68-85-1512Beelmlfig encounterJennifer KapleFPG [facility] [place]Start: 09-14-2022 End: 27-89-0307jmmsqqusrhRcnmujj Claudia Other [employer] Other start: 63-92-9807Zmtvdigkw encounterMatthew WidmerFPG [facility] [place]Start: 08-25-2022 End: 32-69-9024sxtxkiuimjPlxxffg Claudia Other [employer] Other start: 81-05-4875Itehdvjte encounterMatthew WidmerFPG [facility] [place]Start: 11-13-2021 End: 42-41-9638irektihfkvHwvgdbm Binks Other [place] [employer] Other Start: 44-45-8848Utwhnejne encounterRichard BinksFPG [facility] [place]Start: 11-12-2021 End: 85-42-0246tugcwfalplEkilztq Claudia Other [place] [employer] Other Start: 66-23-3039Yvxjizxuk encounterMatthew WidmerFPG [facility] [place]Start: 10-19-2021 End: 58-48-1655qpsndcgtnjIzsnmri Claudia Other [place] [employer] Other Start: 66-75-8117Vvjdiu outpatient visit 25 minutes Melanie EricksonlexiFPG [facility] [place]Start: 08-25-2021 End: 25-91-3873nrmrlmzgzaHoamskd Rakeshks Other [place] [employer] Other Start: 60-18-7928Ocuadtxte encounterRichard BessyFPG [facility] [place]Start: 07-30-2021 End: 77-67-3427utvwogopwyYnqqwiq Claudia Other [place] [employer] Other Start: 24-23-2089Suelwgkxh encounterMatthew WidmerFPG [facility] [place]Start: 07-17-2021 End: 37-85-2758jhrfweayutTdqufew Claudia Other [place] [employer] Other Start: 93-62-9143Khvuxyzic encounterMatthew WidmerFPG Family Medicine [place]Start: 07-10-2021 End: 39-85-8070zhxyqhcaknWjkdfzz Claudia Other [facility] [employer] Other Start: 20-44-2307Erxnztorx encounterMatthew WidmerFPG Family Medicine EvansStart: 07-09-2021 End: 12-82-0668rdcxxaitliUsalnnk Claudia Other [place] [employer] Other Start: 96-96-7552Ddnajvxrg encounterMatthew WidmerFPG Family Medicine EvansStart: 07-08-2021 End: 03-73-3867gdxsjtvkahEdcrzxe Claudia Other [place] [employer] Other Start: 98-43-3683Gtkoxb outpatient visit 25 minutes Melanie EricksonmerFPG Family [facility] HospitalyStart: 79-98-9899Punjiowxm encounter Melanie WidmerFPG Family Medicine EvansStart: 07-02-2021 End: 10-00-9005zrlzkcjmaiAvprsll Claudia Other [facility] [employer] Other Start: 14-41-0232Fwhksqhmy encounterMatthew WidmerFPG Family Medicine EvansStart: 06-17-2021 End: 28-75-2932pobnprklakNigafmg Claudia Other [facility] [employer] Other Start: 86-24-0940Iouzmmmqw encounterMatthew WidmerFPG [facility] HospitalyStart: 06-08-2021 End: 82-12-6853ypjbjfduwhErmfpqr Claudia Other [facility] [employer] Other Start: 97-96-2183Bpslbqvuq encounterMatthew WidmerFPG Family Medicine [facility] HospitalyStart: 05-14-2021 End: 36-62-1048cpisrdqfjcCotxbyh Claudia Other [employer] Other Start: 45-45-0825Dvcyblexr encounterMatthew WidmerFPG [facility] [place]Start: 04-23-2021 End: 29-77-1230ibhqdjvrfaBjnsluc Claudia Other [employer] Other Start: 65-45-9357Jolxfuqsj encounterMatthew WidmerFPG [facility] [place]Start: 04-20-2021 End: 84-42-8711klugsdsapsYwuexqu Claudia Other [employer] Other Start: 35-10-6940Aaimzrmtt encounterMatthew WidmerFPG [facility] [place]Start: 04-09-2021 End: 53-49-5283wwzfztoxmpLajtnul Claudia Other [employer] Other Start: 19-21-1024Ghfbqw outpatient visit 25 minutes Melanie TaylorFPG [facility] [place]Start: 25-52-8372Ozrfcpcel encounter Melanie DallasG Family Medicine [place]Start: 2021 End: 99-96-7290rrwcuewnefLcgmcr Felter Other no[employer] Other Start: 74-21-0526Qkjnqtpjg encounterThomas FelterFPG [place] OrthopedicsStart: 03-11-2021 End: 38-70-7909kghqoxduorOadjhwx Claudia Other [employer] Other Start: 41-62-0442Qscvpxikz encounterMatthew WidmerFPG [facility] [place]Start: 02-11-2021 End: 37-58-1102eksfhkepggFnvrlil Claudia Other [employer] Other Start: 50-41-1894Zaxgdpefm encounterMatthew WidmerFPG [facility] [place]Start: 02-09-2021 End: 66-27-9398avukdtljmwNnewto Felter Other [employer] Other Start: 65-30-0171Sycwrqxrs encounterThomas FelterFPG [place] OrthopedicsStart: 01-05-2021 End: 01-81-0107fnxossxrzvMvqoee Felter Other [employer] Other Start: 71-21-5134Ccobqiact encounterThomas FelterFPG [place] OrthopedicsStart: 12-26-2020 End: 63-15-9786dhpstkpdhoFbbkomu Claudia Other [employer] Other Start: 70-04-4733Ssojscqdo encounterMatthew WidmerFPG [facility] [place]Start: 63-20-9493Embbfz outpatient visit 25 minutes Ricardo [facility] [place] CreekStart: 64-81-2702Msygtd outpatient visit 15 minutesMattyomi WidmerFPG Family Medicine [place]ellyyStart: 11-26-2020 Telephone encounterMatthew WidmerFPG Family Medicine [facility] HospitalyStart: 08-13-2020 End: 41-43-0722gihbgaokavQB TREVOR MARKERFacility:N9Zderw: 05-24-2020 End: 89-77-3847elqpdfcbjuZN DOCTOR MISCFacility:Y6Eznaz: 65-14-1602Vzxszpu encounter procedureORVILLE EMERSONUINNFacility:1532Start: 60-39-6378Zeftksm encounter procedureRENUKA MITCHELLIMFacility:1532 Procedures DateProcedureProcedure DetailPerforming ClinicianStart: 69-03-7364Ay abdomen & pelvis w/o contrast Cyndee Zarate MD Work Phone: Start: 47-41-8725Hy scrotum & contentsTravon Zarate MD Work Phone: Start: 00-82-0800Pvezuizsou microscopic only Travon Zarate MD Work Phone: Start: 29-77-6125Emiih dip stick/tablet rgnt auto w/o microscopyTravon Zarate MD Work Phone: Start: 14-97-7472Gdxdt metabolic panel calcium total Travon Zarate MD Work Phone: Start: 15-75-2888Vsjux depression screening assessment Harjinder Burden MD Work Phone: Start: 88-12-8779Hknnu depression screening assessment Ayan Dorotheart: 80-84-6637Ccjj bld gluc mntr dev cleared fda spec home use Lou Medrano MD Work Phone: Start: 38-89-7025Fwrvt metabolic panel calcium total Ale Bowser MD Work Phone: Start: 41-78-2812Obsar of phosphorus Ping Guzman MD Work Phone: Start: 40-37-4131Nqzb bld gluc mntr dev cleared fda spec home useLou Medrano MD Work Phone: Start: 33-99-2004Nuyj bld gluc mntr dev cleared fda spec home useLou Medrano MD Work Phone: Start: 80-73-2969Uvsik of phosphorus inorganicDrew Guzman MD Work Phone: Start: 58-92-5835Smlu bld gluc mntr dev cleared fda spec home useLou Medrano MD Work Phone: Start: 01-37-9194Plts bld gluc mntr dev cleared fda spec home useLou Medrano MD Work Phone: Start: 06-72-5165Ffttz metabolic panel calcium total Ale Bowser MD Work Phone: Start: 06-03-3632Azazdvlsxdm up to 1 hour physician/qhp Grazyna Dumont MD Work Phone: Start: 61-24-2105Csqh bld gluc mntr dev cleared fda spec home useLou Medrano MD Work Phone: Start: 74-08-4871Rhpq bld gluc mntr dev cleared fda spec home useLou Medrano MD Work Phone: Start: 92-03-6923Ycjg bld gluc mntr dev cleared fda spec home useLou Medrano MD Work Phone: Start: 03-16-2024 End: 73-89-1231DQUKRBDFM RED BLOOD CELLSAndyan Guzman MD Work Phone: Start: 58-93-0727Tvbfvpea screenDrew Guzman MD Work Phone: Start: 03-16-2024 End: 05-00-9627Lktbbpoae totalDrew Guzman MD Work Phone: Start: 39-47-3261Itejt typing serologic aboDrew Guzman MD Work Phone: Start: 03-16-2024 End: 31-42-9440Gbqkz metabolic panel calcium Raya Bowser MD Work Phone: Start: 43-98-9619Cupn bld gluc mntr dev cleared fda spec home useLou Medrano MD Work Phone: Start: 91-21-4647Fyow bld gluc mntr dev cleared fda spec home useLou Medrano MD Work Phone: Start: hydroxy includes fractions if performedPiero Dumont MD Work Phone: Start: 16-26-8159Qaig bld gluc mntr dev cleared fda spec home useLou Medrano MD Work Phone: Start: 95-14-8336Ikul bld gluc mntr dev cleared fda spec home useLou Medrano MD Work Phone: Start: 75-78-4772Cotvp metabolic panel calcium total Ale Bowser MD Work Phone: Start: 03-14-2024 End: 81-56-6790Guouh of Marisel Guzman MD Work Phone: Start: 59-86-0445Fyge bld gluc mntr dev cleared fda spec home useLou Medrano MD Work Phone: Start: 39-62-0365Dnqs bld gluc mntr dev cleared fda spec home useLou Medrano MD Work Phone: Start: 85-25-5338Spkifubmcmdwka vitamin b-12Lou Medrano MD Work Phone: Start: 08-79-1107Bbrc bld gluc mntr dev cleared fda spec home useLou Medrano MD Work Phone: Start: 13-08-1932Lxhwh metabolic panel calcium total Ale Bowser MD Work Phone: Start: 86-11-4300Lvat bld gluc mntr dev cleared fda spec home useLou Medrano MD Work Phone: Start: 03-13-2024 End: 52-15-2287Hzghb metabolic panel calcium Raya Bowser MD Work Phone: Start: 03-12-2024 End: 89-50-3808Lewxf metabolic panel calcium Raya Bowser MD Work Phone: Start: 72-17-3216YRRZ ARTERIAL LINE SETUPPavan Beltre MD Work Phone: Start: 03-11-2024 End: 44-77-0838Bzwh bld gluc mntr dev cleared fda spec home useLou Medrano MD Work Phone: Start: 69-52-0341Dfky bld gluc mntr dev cleared fda spec home useLou Medrano MD Work Phone: Start: 43-04-8901SEZQ ARTERIAL LINE SETUPPavan Beltre MD Work Phone: Start: 44-49-7854Nxqx bld gluc mntr dev cleared fda spec home useLou Medrano MD Work Phone: Start: 03-11-2024 End: 65-27-4910Dsvtz of phosphorus inorganicLou Medrano MD Work Phone: Start: 21-27-4997Folx bld gluc mntr dev cleared fda spec home useLou Medrano MD Work Phone: Start: 85-87-1139SORS ARTERIAL LINE SETUPPavan Beltre MD Work Phone: Start: 03-11-2024 End: 86-11-9657Otprj metabolic panel calcium totalAle Bowser MD Work Phone: Start: 72-12-3084BZGZ ARTERIAL LINE SETUPPavan Beltre MD Work Phone: Start: 03-10-2024 End: 66-49-4415Lqnl bld gluc mntr dev cleared fda spec home useLou Medrano MD Work Phone: Start: 03-10-2024 End: 82-45-1075VIFRDBEDU RED BLOOD CELLSCristian Petrisor Avasilcai PER DIEM PHYSICAL THERAPIST ASSISTANT-RN REFERRAL Work Phone: Start: 23-35-8122XQQE ARTERIAL LINE SETUPPavan Beltre MD Work Phone: Start: 06-01-4036Tuck bld gluc mntr dev cleared fda spec home useLou Medrano MD Work Phone: Start: 43-19-9070Doshjgfa screenDrew Guzman MD Work Phone: Start: 18-84-0893Zloaf typing serologic aboCristian Petrisor Avasilcai PER DIEM PHYSICAL THERAPIST ASSISTANT-RN REFERRAL Work Phone: Start: 03-10-2024 End: 82-80-1347Xubb bld gluc mntr dev cleared fda spec home useLou Medrano MD Work Phone: Start: 03-10-2024 End: 84-15-4317Whzt bld gluc mntr dev cleared fda spec home useLou Medrano MD Work Phone: Start: 50-37-3456Huvu bld gluc mntr dev cleared fda spec home useLou Medrano MD Work Phone: Start: 50-30-7691Dvrczsywgs exam chest single viewEarl Edna PER DIEM PHYSICAL THERAPIST ASSISTANT-RN REFERRAL Work Phone: Start: 39-61-2254MFRB ARTERIAL LINE SETUPPavan Beltre MD Work Phone: Start: 52-44-7537Esheovidwgqua metabolic panelJennifer J Pelwecki PER DIEM PHYSICAL THERAPIST ASSISTANT-RN REFERRAL Work Phone: Start: 96-54-9371HAPK ARTERIAL LINE SETUPPavan Beltre MD Work Phone: Start: 88-74-6039Ghcw bld gluc mntr dev cleared fda spec home useLou Medrano MD Work Phone: Start: 20-28-1032Jbfbn count hematocritChristopher Ewry PER DIEM PHYSICAL THERAPIST ASSISTANT-RN REFERRAL Work Phone: Start: 86-34-9836OEIT ARTERIAL LINE SETUPPavan Beltre MD Work Phone: Start: 57-12-4454Bvkwsjazjke up to 1 hour physician/qhp Bushra Beasley MD Work Phone: Start: 03-09-2024 End: 66-91-6571Zowdz w/insert ureteral stentScosmo Beasley MD Work Phone: Start: 64-33-0411Sytx bld gluc mntr dev cleared fda spec home useLou Medrano MD Work Phone: Start: 85-48-1587Ysxo bld gluc mntr dev cleared fda spec home useLou Medrano MD Work Phone: Start: 56-05-0070Mcnc bld gluc mntr dev cleared fda spec home useLou Medrano MD Work Phone: Start: 90-19-5756Rdydvtc Aniya Medrano MD Work Phone: Start: 01-28-2963Nrldoghjwy exam chest single view Ginger Fitzgerald Yinai PER DIEM PHYSICAL THERAPIST ASSISTANT-RN REFERRAL Work Phone: Start: 51-41-5094KHMI ARTERIAL LINE SETUPPavan Beltre MD Work Phone: Start: 03-09-2024 End: 80-75-8046Tybtodccqlqnl metabolic panelGinger Fitzgerald Pelwereannai PER DIEM PHYSICAL THERAPIST ASSISTANT-RN REFERRAL Work Phone: Start: 56-39-5938EGTR ARTERIAL LINE SETUPPavan Beltre MD Work Phone: Start: 03-08-2024 End: 66-72-6551Mkmswwajessika Medrano MD Work Phone: Start: 53-74-3939VYZV ARTERIAL LINE SETUPPavan Beltre MD Work Phone: Start: 62-85-6283Svyy bld gluc mntr dev cleared fda spec home useLou Medrano MD Work Phone: Start: 49-33-1840Pdjj bld gluc mntr dev cleared fda spec home useLou Medrano MD Work Phone: Start: 67-89-9204Zyblq s aureus methicillin resist amp probe tqGinger Fitzgerald Pelwecki PER DIEM PHYSICAL THERAPIST ASSISTANT-RN REFERRAL Work Phone: Start: 03-08-2024 End: 48-42-2018Tqtpndhfuudsi metabolic panelGinger Fitzgerald Pelwecki PER DIEM PHYSICAL THERAPIST ASSISTANT-RN REFERRAL Work Phone: Start: 99-42-0989Kfli cathj/cannulj mntr/transfusion spx prqGinger Fitzgerald Pelwecki PER DIEM PHYSICAL THERAPIST ASSISTANT-RN REFERRAL Work Phone: Start: 32-26-2754IQZN ARTERIAL LINE SETUPPavan Beltre MD Work Phone: Start: 79-72-4172Wqay bld gluc mntr dev cleared fda spec home useLou Medrano MD Work Phone: Start: 04-02-2446QDUJN METABOLIC PANEL W/ REFLEX TO MG FOR LOW KShirley A Enrrique-Lauren PER DIEM PHYSICAL THERAPIST ASSISTANT - RN REFERRAL Work Phone: Start: 97-61-0178Lasib count complete auto&auto difrntl wbcShirley A Enrrique-Lauren PER DIEM PHYSICAL THERAPIST ASSISTANT - RN REFERRAL Work Phone: Start: 57-12-8734Gqmbmd ecg 1-3 leads w/interpretation & reportUnknown Provider ResultStart: 07-46-7600Kpcu tthrc r-t 2d w/wom-mode compl spec&colr Tigre Watson MD Work Phone: Start: 02-09-2024 End: 12-67-7651Bjciiavurzt peptideNatalie Taveras PA-C Work Phone: Start: 09-46-4752VOTSG METABOLIC PANEL W/ REFLEX TO MG FOR LOW KShirley A Enrrique-Lauren PER DIEM PHYSICAL THERAPIST ASSISTANT - RN REFERRAL Work Phone: Start: 97-74-4347Pzolgh ecg 1-3 leads w/interpretation & reportUnknown Provider ResultStart: 56-96-5585BWWNELI B12 & FOLATEMohammallory Carlton MD Work Phone: Start: 02-08-2024 End: 50-58-5097Mzeiz of troponin quantitativeShirley A Enrrique-Lauren PER DIEM PHYSICAL THERAPIST ASSISTANT - RN REFERRAL Work Phone: Start: 17-85-4643MZMBG METABOLIC PANEL W/ REFLEX TO MG FOR LOW KShirley A Enrrique-Lauren PER DIEM PHYSICAL THERAPIST ASSISTANT - RN REFERRAL Work Phone: Start: 02-08-2024 End: 46-35-8944Wacwfr ecg 1-3 leads w/interpretation & reportUnknown Provider ResultStart: 81-04-6807Hgrxgckh Cara Solorzano MD Work Phone: Start: 01-50-6129Ucdwiilha serum plasma/whole blood Kelsie Rachel [facility]St[facility] Work Phone: Start: 74-59-7644Hrgjk count hemoglobinChristopher D Robert MICHEL Work Phone: Start: 00-36-8352NFOHKKR B12 & FOLATEKelsie Aguilar [facility] Work Phone: Start: 02-07-2024 End: 45-26-4261Nknrmvyerom of packed red blood cellsKelsie OsunaLaurenSt. Thomas More Hospital Work Phone: Start: 02-07-2024 End: 94-98-0258Wigpi of haptoglobin quantitativeShbaylee YadavSt. Thomas More Hospital Work Phone: Start: 72-12-3691BKPWF METABOLIC PANEL W/ REFLEX TO MG FOR LOW KShirley Rachel [facility]unaSaint [facility] Work Phone: Start: 02-07-2024 End: 56-48-8177Krytrtcpmhc of packed red blood cellsKelsie GaribayLevindale [facility] Work Phone: Start: 86-40-3139Gff routine ecg w/least 12 lds i&r onlyDana Solorzano MD Work Phone: Start: 28-46-5401Ut thorax w/contrast Gerson Solorzano MD Work Phone: Start: 02-07-2024 End: 28-66-9328Lx cervical spine w/o contrast materialDana Solorzano MD Work Phone: Start: 14-06-0169Ly head/brain w/o contrast material Dana Solorzano MD Work Phone: Start: 88-53-9343Mzklisi bacterial quanttative colony count urineDana Solorzano MD Work Phone: Start: 27-44-9760Wpztk dip stick/tablet rgnt auto w/o microscopyThhannah Solorzano MD Work Phone: Start: 02-07-2024 End: 08-41-3548Sfjpk of troponin quantitativeDana Solorzano MD Work Phone: Start: 53-01-7330Ogjwa typing serologic aboDana Solorzano MD Work Phone: Start: 94-94-7767HAEFN GAS, ARTERIALDana Solorzano MD Work Phone: Start: 50-89-0201Yhyahlmtzohoj metabolic panelDana Solorzano MD Work Phone: Start: 07-94-4983Hvxzhec bacterial blood aerobic w/id isolatesThhannah Solorzano MD Work Phone: Start: 13-74-8820XZPDENV, BLOOD 1Dana Solorzano MD Work Phone: Start: 83-05-8574Qclft depression screening assessment Wendy Story RNStart: 70-41-2102Jyoen depression screening assessmentDolorUnion General HospitalStart: 87-59-3435Kqwgh count platelet automatedRandall Martin MD Work Phone: Start: 82-08-3791Fvee bld gluc mntr dev cleared fda spec home useJulia Man MD Work Phone: Start: 50-06-4807Qgwf bld gluc mntr dev cleared fda spec home useJulia Man MD Work Phone: Start: 10-25-2023 End: 02-03-9832Edqhlbzpkpnmx metabolic panelVivekrachel Arenas Madhavi PER DIEM PHYSICAL THERAPIST ASSISTANT-RN REFERRAL Work Phone: Start: 16-56-4236Eleaq count hemoglobinRandall Martin MD Work Phone: Start: 23-11-0783Xipd bld gluc mntr dev cleared fda spec home useJulia Man MD Work Phone: Start: 02-31-0196Rcdb bld gluc mntr dev cleared fda spec home useJulia Man MD Work Phone: Start: 02-89-3130Llkv bld gluc mntr dev cleared fda spec home useJulia Man MD Work Phone: Start: 16-43-4728Lfjc bld gluc mntr dev cleared fda spec home useJulia Man MD Work Phone: Start: 23-77-4045Bnouioamqazrt metabolic panelDeanna Hendrickson PER DIEM PHYSICAL THERAPIST ASSISTANT-RN REFERRAL Work Phone: Start: 22-55-5484Tjbjd of Zohreh Hendrickson PER DIEM PHYSICAL THERAPIST ASSISTANT-[facility] Work Phone: Start: 78-32-5689Utxi bld gluc mntr dev cleared fda spec home useJulia Man MD Work Phone: Start: 10-23-2023 End: 81-71-6672Vtxs bld gluc mntr dev cleared fda spec home useJulia Man MD Work Phone: Start: 78-80-2658Vfsz bld gluc mntr dev cleared fda spec home useJulia Man MD Work Phone: Start: 00-79-0138Uzxzd of Lupe Brown PER DIEM PHYSICAL THERAPIST ASSISTANT-[facility] Work Phone: Start: 02-26-5703Qlmu bld gluc mntr dev cleared fda spec home useJulia Man MD Work Phone: Start: 40-48-7175Walhnybmokesg metabolic panelDeanna Hendrickson PER DIEM PHYSICAL THERAPIST ASSISTANT-[facility] Work Phone: Start: 10-22-2023 End: 72-81-8088Cens bld gluc mntr dev cleared fda spec home useJulia Man MD Work Phone: Start: 47-85-6903Cgzy bld gluc mntr dev cleared fda spec home useJulia Man MD Work Phone: Start: 10-66-9179Eytuucohn serum plasma/whole blood Magalygautam Brown PER DIEM PHYSICAL THERAPIST ASSISTANT-[facility] Work Phone: Start: 98-71-4987Iucvymu assayJulia Man MD Work Phone: Start: 27-15-0479Mqpu bld gluc mntr dev cleared fda spec home useDarlenezenobia Man MD Work Phone: Start: 33-83-7235Oylsucvdtyhfy metabolic panelTierrachel Hendrickson PER DIEM PHYSICAL THERAPIST ASSISTANT-[facility] Work Phone: Start: 02-71-7811Tzjsubg assayMatt Montemayor MD Work Phone: Start: 86-83-4754Spfg bld gluc mntr dev cleared fda spec home useJulia Man MD Work Phone: Start: 65-45-0627Rtjy bld gluc mntr dev cleared fda spec home useJulia Man MD Work Phone: Start: 23-94-5867Xnsfdzz assayRandall Martin MD Work Phone: Start: 90-64-4360Hjec bld gluc mntr dev cleared fda spec home useJulia Man MD Work Phone: Start: 88-83-2511Vpta transthorc r-t 2d w/wo m-mode rec f-up/lmtJatinder Martin MD Work Phone: Start: 38-67-0532Btzr bld gluc mntr dev cleared fda spec home useJulia Man MD Work Phone: Start: 32-42-6892Cihtbhzilkbai metabolic panelDeanna Hendrickson PER DIEM PHYSICAL THERAPIST ASSISTANT-[facility] Work Phone: Start: 01-79-4638Fybdave assayRandall Martin MD Work Phone: Start: 10-20-2023 End: 47-78-2748Biufa of magnesiumJulia Man MD Work Phone: Start: 70-11-9014Bz thorax w/o contrast materialAlyssavin K Martin MD Work Phone: Start: 10-20-2023 End: 28-34-1009Atms bld gluc mntr dev cleared fda spec home useJulia Man MD Work Phone: Start: 00-45-7581Vsfhzlbpc serum plasma/whole blood Julia Man MD Work Phone: Start: 84-47-3851Fbksevava perfusion imaging particulateJulia Man MD Work Phone: Start: 31-29-5388Ymt-scan xtr veins complete bilateral studyJulia Man MD Work Phone: Start: 06-76-9599Jnglv of troponin Rl Montemayor MD Work Phone: Start: 50-67-9636Sux routine ecg w/least 12 lds trcg only w/o i&rCharity A Amelia PER DIEM PHYSICAL THERAPIST ASSISTANT-RN REFERRAL Work Phone: Start: 10-20-2023 End: 60-53-1924Kqvch of magnesiumTiera S Madhavi PER DIEM PHYSICAL THERAPIST ASSISTANT-RN REFERRAL Work Phone: Start: 33-76-7486Ligst of phosphorus inorganicEmelina Henning MD Work Phone: Start: 26-71-6932MEYCGUNWVCYLWYgttf-Rhman Mohamed MD Work Phone: Start: 10-12-2023 End: 01-35-8621Giuuabyxzfiev metabolic panelScari Fraser MD Work Phone: Start: 30-97-2462GNJSYJOK ABORHALeonid Henning MD Work Phone: Start: 30-62-9422Ioqzc occult peroxidase actv qual feces 1-3 specMahesh Banerjee MD Work Phone: Start: 19-43-7335Iciwqotfyh exam chest single view Madisyn Fraser MD Work Phone: Start: 10-11-2023 End: 07-65-9236RFSFZKKBM RED BLOOD CELLSAmandeep Henning MD Work Phone: Start: 45-26-0177Dazcgvlo screenAhmallory Anderson MD Work Phone: Start: 44-92-6934Edmbx typing serologic aboAmandeep Henning MD Work Phone: Start: 10-11-2023 End: 35-88-2873Gwvyzhierxyct metabolic panelScari Fraser MD Work Phone: Start: 34-15-7151Az abdominal real time w/image limitedEmwoo Palomo MD Work Phone: Start: 26-90-7421Hecvkub bacterial quanttative colony count urineKylee Ramirez MD Work Phone: Start: 19-40-9333Rakry gases any combination ph pco2 po2 co2 brw3Sies Rachel Mccarthy MD Work Phone: Start: 13-12-2727Kbwbiwbws serum plasma/whole blood Grace Palomo MD Work Phone: Start: 99-85-9538Ektjw count hematocritMoiris Fermin MD Work Phone: Start: 83-95-5633Fvbimopxmkdor metabolic panelScari Fraser MD Work Phone: Start: 07-26-0288SRJKBBBD PATHOLOGYRamy Rachel Banerjee MD Work Phone: Start: 10-09-2023 End: 12-07-5642NPRX CENTRAL SETUPMohamed Rachel Lopez MD Work Phone: Start: 70-18-6923Foqjr of free thyroxineKylee Ramirez MD Work Phone: Start: 90-45-3276Silmy dip stick/tablet rgnt auto w/o microscopySatristian Fraser MD Work Phone: Start: 94-84-0739Nojaklmen serum plasma/whole blood Courtney Fermin MD Work Phone: Start: 61-45-2179Euhwciqxuu exam chest single view Earl Leslie MD Work Phone: Start: 37-86-2496Vlcqznwqmntbm metabolic panelScari Fraser MD Work Phone: Start: 10-51-3676Kgox bld gluc mntr dev cleared fda spec home useGopal Mccarthy MD Work Phone: Start: 18-01-9775Kntjwkenbm exam chest single view Earl Leslie MD Work Phone: Start: 18-85-8134Hwwuxoxewxzws metabolic panelScari Fraser MD Work Phone: Start: 53-31-6322Wdcujyq xcpt refractometry serum plasma/whl Anaohjose a Leslie MD Work Phone: Start: 79-21-3736Dnmbfdtqwkfkj needle/cath pleura w/imagingKylee Ramirez MD Work Phone: Start: 05-68-8279LJZFJWTECkvyKylee Ramirez MD Work Phone: Start: 53-45-6431Mjov count misc body fluids w/differential countKylee Ramirez MD Work Phone: Start: 43-72-0327Jdqsyge bacterial any source anaerobic iso&idKylee Ramirez MD Work Phone: Start: 77-36-9522Simfgph dehydrogenase ldhKylee Ramirez MD Work Phone: Start: 27-53-0605Utoby of magnesiumMoiris Fermin MD Work Phone: Start: 90-06-3564Jsedwpsecokvs metabolic panelScari Fraser MD Work Phone: Start: 34-22-3066Jlxg bld gluc mntr dev cleared fda spec home useGopal Mccarthy MD Work Phone: Start: 48-35-6763QQEOBNFXZQRW INPATIENTAllaraceli Cameron Lloyd MD Work Phone: Start: 75-39-3882Pgykalmoh serum plasma/whole blood Courtney Fermin MD Work Phone: Start: 15-32-8429Oucohiocae exam chest single view Sadaf Cameron Lloyd MD Work Phone: Start: 69-94-2367Raoxbdrwtnfot metabolic panelScari Fraser MD Work Phone: Start: 20-32-6610QLHIHFOZFBHB INPATIENTAllaraceli Lloyd MD Work Phone: Start: 45-46-9781Ffihtopxd b surf antibody hbsabMoiris Fermin MD Work Phone: Start: 01-89-8051Yhqepzntp not otherwise specified Madisyn Fraser MD Work Phone: Start: 11-11-5409Pvvahyaerxi antibodies anaSadaf Lloyd MD Work Phone: Start: 36-87-4642Opgwk of magnesiumSadaf Lloyd MD Work Phone: Start: 96-43-5202NN IMMUNOGLOBULIN LIGHT CHAINS FREE EACHSadaf Lloyd MD Work Phone: Start: 51-93-0700Ivnd non-tunneled central venous cath age 3 yr/>Madisyn Fraser MD Work Phone: Start: 42-32-4824SS INFECTIOUS DISEASE RESP, DNA/RNA, 22 TARGETS INCLUDING GWEAFRP8Isnbo Shabir MD Work Phone: Start: 10-05-2023 End: 98-97-3949Ejzxesw bacterial blood aerobic w/id isolatesDoniya Eduarda Ramirez MD Work Phone: Start: 10-05-2023 End: 86-96-3419Yeuqszhnbwglu metabolic panelGrace Palomo MD Work Phone: Start: 93-63-1914Kpnn ia hepatitis b surface antigen Grace Palomo MD Work Phone: Start: 28-55-6947Ymskt panelGrace Palomo MD Work Phone: Start: 97-68-2923Wyrql dip stick/tablet rgnt auto w/o microscopyGrace Palomo MD Work Phone: Start: 38-29-9619Pdbdqrzgdp exam chest single view Skyler Alfaro DO Work Phone: Start: 09-87-4562Mse routine ecg w/least 12 lds trcg only w/o i&rDavid Alfaro DO Work Phone: Start: 73-73-0607DO ED CRITICAL CAREDavid Alfaro DO Work Phone: Start: 21-31-3741RDQGNQKS PATHOLOGYSadaf Lloyd MD Work Phone: Start: 32-94-5817Umjjgmtfhjdfd metabolic panelKyle D Krotzer PER DIEM PHYSICAL THERAPIST ASSISTANT-RN REFERRAL Work Phone: Start: 70-70-7320Vmha bld gluc mntr dev cleared fda spec home useJulia Man MD Work Phone: Start: 22-79-5485Ykwa bld gluc mntr dev cleared fda spec home useJulia Man MD Work Phone: Start: 09-10-2023 End: 80-17-7576Aduzqgfxmzxpi metabolic panelKyle D Krotzer PER DIEM PHYSICAL THERAPIST ASSISTANT-RN REFERRAL Work Phone: Start: 58-57-3785Zfpu bld gluc mntr dev cleared fda spec home useJulia Man MD Work Phone: Start: 09-09-2023 End: 78-76-9646Sykdjgesu serum plasma/whole bloodKyle D Krotzer PER DIEM PHYSICAL THERAPIST ASSISTANT-RN REFERRAL Work Phone: Start: 09-09-2023 End: 30-88-1740Pklyqzeki serum plasma/whole bloodKyle D Krotzer PER DIEM PHYSICAL THERAPIST ASSISTANT-RN REFERRAL Work Phone: Start: 23-68-4285Sjdnomkkffwww metabolic panelKyle D Nancy PER DIEM PHYSICAL THERAPIST ASSISTANT-RN REFERRAL Work Phone: Start: 72-62-5865Zqbu bld gluc mntr dev cleared fda spec home useKalemunira Man MD Work Phone: Start: 41-58-4368Vnyih of magnesiumKaleem Chelsea Man MD Work Phone: Start: 12-44-7210Rqlt bld gluc mntr dev cleared fda spec home useKaleem Chelsea Man MD Work Phone: Start: 24-99-1154Aqke transthorc r-t 2d w/wo m-mode rec f-up/lmtdKyle D Nancy PER DIEM PHYSICAL THERAPIST ASSISTANT-RN REFERRAL Work Phone: Start: 10-45-4789Ymbt bld gluc mntr dev cleared fda spec home useKaleem Chelsea Man MD Work Phone: Start: 09-74-8408Ydmcl of troponin quantitativeAhmallory Dumont DO Work Phone: [phone]-tart: 45-33-7787Fmzwjtxhhy exam chest single view Shirley Dumont DO Work Phone: [phone]-tart: 70-97-0787Tlendtwgdhyff metabolic panelShirley Banksatib DO Work Phone: [phone]-tart: 41-51-1045Vfg routine ecg w/least 12 lds trcg only w/o i&rAhmad Miguel Angel Dumont DO Work Phone: [phone]: 66-80-0800Exekd depression screening assessment Howard ThurstonStart: 86-28-3309WW Closure Device Placement 0DO Melanie Taylor Work Phone: Start: 07-98-9823ZW LHC & COR Angio w/graftsDO Melanie Taylor Work Phone: Start: 36-24-3395JX Stent 1st Vessel LM DESDO Melanie Taylor Work Phone: Plan of Treatment DateCare ActivityDetailAuthorStart: 09-48-5586Cireviodmk ScreeningDepression ScreeningProRegional Medical Centerca Health SystemStart: 79-62-7524Wcvfanc ScreeningTobacco ScreeningProRegional Medical Centerca Health SystemStart: 57-27-9939Feipvvkzcp ScreeningDepression ScreeningProRegional Medical Centerca Health SystemStart: 15-12-7176Fitense ScreeningTobacco ScreeningProRegional Medical Centerca Health SystemStart: 25-39-1361Scifsew ScreeningTobacco ScreeningProRegional Medical Centerca Health SystemStart: 49-57-5604Kwttdoute for malignant neoplasm of colonSentara Williamsburg Regional Medical CenterStart: 61-35-0875Ynune BMI Screening Adult BMI ScreeningProRegional Medical Centerca Health SystemStart: 59-15-1329Kcclxtc Screening Tobacco ScreeningProRegional Medical Centerca Health SystemStart: 71-82-5031Vuqrz BMI Screening Adult BMI ScreeningProRegional Medical Centerca Health SystemStart: 97-10-4668Nmpqn BMI Screening Adult BMI ScreeningProMedica Health SystemStart: 66-73-2205Whdwy BMI Screening Adult BMI ScreeningProRegional Medical Centerca Health SystemStart: 21-63-9662Pddtpetvcc Screening Depression ScreeningSelect Medical Specialty Hospital [facility] Youngstownca Health SystemStart: 53-86-5385Ffoxw BMI Screening Adult BMI ScreeningProMedica Health SystemStart: 50-52-9153Wpojkqu Screening Tobacco ScreeningProRegional Medical Centerca Health SystemStart: 54-36-8302Rrohl BMI Screening Adult BMI ScreeningProMedica Health SystemStart: 88-49-6949Hmmuv BMI Screening Adult BMI ScreeningProMedica Health SystemStart: 16-89-5091Obxtz BMI Screening Adult BMI ScreeningProMedica Health SystemStart: 32-98-2799Eimcmgqxnf Screening Depression ScreeningProRegional Medical Centerca Health SystemStart: 01-83-8418Dlgfgjx Screening Tobacco ScreeningMayo Memorial HospitalMedica Health SystemStart: 91-41-4863Krhiokr Screening Tobacco ScreeningProMedica [facility] SystemStart: 48-90-2122VEJKD-19 Vaccine ()COVID-19 Vaccine ()[facility] Start: 06-19-2171Ycail BMI ScreeningAdult BMI ScreeningSelect [facility] System Start: 74-37-5636Utxztsv ScreeningTobacco ScreeningSelect [facility] SystemStart: 85-03-1648Qlxwenicu vaccinationFlu vaccine (#1)Jasmeet [facility] HospitalStart: 73-66-3338Gfizu BMI ScreeningAdult BMI ScreeningProUniversity Hospitals Health System SystemStart: 16-87-0627Vutqwlx ScreeningTobacco ScreeningSelect [facility] SystemStart: 53-24-0044Tijzq BMI ScreeningAdult BMI ScreeningProUniversity Hospitals Health System SystemStart: 18-81-2383Ecykobk ScreeningTobacco ScreeningSelect [facility] SystemStart: 32-38-2659Wgzjbhclff ScreeningDepression ScreeningProUniversity Hospitals Health System SystemStart: 07-11-2024 End: 43-21-3941Heydqck encounter jedkrufun41/21/2025 2:00 PM EDT Office Visit [facility] [address] [place] [address] Nora Hope, PER DIEM PHYSICAL THERAPIST ASSISTANT-RN REFERRAL [address] [place], [place] [id number] [facility] MedicineStart: 04-10-2024 End: 42-10-3433renqicwsbuHsnOsqock Physicians Genito-Urinary SurgeonsStart: 03-12-2024 End: 37-03-5066Wlcgcgu encounter djiuvhpde03/20/2025 12:50 PM EST Office Visit [facility] [address] [place] [address] Shirley Pratt MD [address], [facility] [address] [place] [address] [facility] Start: 02-20-2024 End: 71-06-8093Dkywbux encounter /30/2024 1:30 PM EST Office Visit [facility] [address] [place] [address] Shirley Pratt MD [address] [facility], [facility] [address] [place] [address] [facility] Start: 02-17-2024 End: 39-94-6559Bzyvv metabolic 2000 panel - Serum or PlasmaBasic Metabolic Panel Lab Routine Acute cystitis with hematuria Expected: 02/17/2024, Expires: 02/09on [facility] on above:Expected: 02/17/2024, Expires: 02/09/2025Start: 02-17-2024 End: 35-02-2368QIT W Auto Differential panel - BloodCBC with Auto Differential Lab Routine Acute cystitis with hematuria Expected: 02/17/2024, Expires: 02/09/2025on [facility] on above:Expected: 02/17/2024, Expires: 02/09/2025Start: 40-93-4058Krxqjq Wellness Visit (Medicare)Annual Wellness Visit (Medicare)[facility]Start: 12-19-2023 End: 69-94-1877Dzirkdn encounter cufridxal02/28/2024 1:50 PM EDT Office Visit [facility] [address] [facility] [address] [place] [address] Shirley Pratt MD [address] [address] [facility] Start: 12-07-2023 End: 56-67-9709Ekvzscm encounter nuhirrwfi91/16/2024 8:40 AM EDT Office Visit [facility] [address] [place] [phone] Shirley Pratt MD [address] [facility] [address] [place] [address] [facility]Start: 12-05-2023 End: 36-31-1951Ljuiwwx encounter gloczquqz47/14/2024 10:15 AM EDT Office Visit [facility] [address] [place] [address] Sally Moore, PA [address] [address] [facility] Start: 11-25-2023 End: 53-17-3625Dnumcenaio and management of /04/2024 11:18 AM EDT - 11/25/2023 1:[address] [facility] - Cardiac Cath [address] [place] [id number] Henrietta Arias MD [address] [place] [address] Transcutaneous aortic valve replacement/Transfemoral/EdwardsProMedica [facility] - Cardiac CathComment on above:Transcutaneous aortic valve replacement/Transfemoral/EdwardsStart: 11-24-2023 End: 98-92-6267Ovqrhit encounter dmtpeojxs38/03/2024 9:00 AM EDT Office Visit [facility] [address] [place] [phone] Will Lira MD [address], [address] [address] [facility] SurgeryStart: 11-23-2023 End: 93-60-6934Ytdw Lmtd (Structural Heart) wocon w DopplerEcho Lmtd (Structural Heart) wocon w Doppler Echocardiography Routine Severe aortic stenosis Expecte d: 11/23/2023, Expires: 11/22/2024[facility] Work Phone: Comment on above:Expected: 11/23/2023, Expires: 11/22/2024Start: 01-94-7394XHJXJ-19 Vaccine ()COVID-19 Vaccine ()[facility] CenterStart: 18-18-4543MQVFN-19 Vaccine ( season)COVID-19 Vaccine ( season)[facility] Start: 81-10-8840Fqpczgfvl vaccinationInfluenza VaccineOhioHealth Grant Medical Center Start: 10-18-2023 End: 14-97-4211Dmeonsqvz [Mass/volume] in Serum or PlasmaMagnesium Lab Routine CRISTINE (acute kidney injury) ([facility]) Expected: 10/18/2023 (Approximate), Expires: 10/17/2024[facility] Work Phone: Comment on above:Expected: 10/18/2023 (Approximate), Expires: 10/17/2024Start: 10-18-2023 End: 00-83-0380Xokslsvugmk peptide B [Mass/volume] in BloodB-type natriuretic peptide Lab Routine CRISTINE (acute kidney injury) ([facility] Chronic diastolic congestive heart failure ([facility]) Expected: 10/18/2023 (Approximate), Expires: 10/17/2024[facility] CenterComment on above:Expected: 10/18/2023 (Approximate), Expires: 10/17/2024Start: 59-24-7475Phtuaqynp vaccinationFlu vaccine (#1)Jasmeet Lemonsanabella [facility] HospitalStart: 09-18-2023 End: 72-71-5334Szbco metabolic 2000 panel - Serum or PlasmaBasic Metabolic Panel Lab Routine On potassium wasting diuretic therapy Expected: 09/18/2023 (Approx imate), Expires: 09/10/2024[facility] Medical CenterComment on above:Expected: 09/18/2023 (Approximate), Expires: 09/10/2024Start: 04-51-7979TmizpzthuCenterville CenterStart: 63-76-1411PqtdcwbygCenterville CenterStart: 61-52-5695Wrpjwqah to hematologistCenterville CenterStart: 84-64-2264Zeppzpne admissionCenterville CenterStart: 2023 Respiratory Syncytial Virus (RSV) or age 60 yrs+ (1 - 1-dose 75+ series)Respiratory Syncytial Virus (RSV) or age 60 yrs+ (1 - 1-dose 75+ series)[facility]art: 03-94-1756LQKDS-19 Vaccine ( season)COVID-19 Vaccine ( season)[facility] Centertart: 29-41-4099Zqqx Risk ScreeningFall Risk ScreeningNovant Health New Hanover Regional Medical Centertart: 32-92-4623Ulunzyeoy B vaccine (1 of 3 - Risk 3-dose series)Hepatitis B vaccine (1 of 3 - Risk 3-dose series)[facility] Hospitalart: 1998 Administration of varicella zoster vaccineZoster (Shingles) Vaccine (1 of 2) [facility] Centertart: 13-62-3117Vqinpwws vaccine (1 of 2)Shingles vaccine (1 of 2)[facility] Hospitalart: 83-61-8642Cyrqjyrea for malignant neoplasm of colonMartinsville Memorial Hospitalart: 20-05-8707DZeC,Tdap and Td Vaccines (1 - Tdap)DTaP,Tdap and Td Vaccines (1 - Tdap)[facility] Start: 72-12-8585SDlF/Tdap/Td vaccine (1 - Tdap)DTaP/Tdap/Td vaccine (1 - Tdap) [facility] Hospitalart: 51-77-9622Xkypprtpf A vaccine (1 of 2 - Risk 2- dose series)Hepatitis A vaccine (1 of 2 - Risk 2-dose series)[facility] Hospitalart: 28-51-4058Mbgle BMI Follow Up PlanAdult BMI Follow Up PlanNovant Health New Hanover Regional Medical Centertart: 70-75-7527Rezobkcwy C screeningHepatitis C screenBon [facility] Centerart: 36-89-2290Zevmfgttiq MonitoringDepression Monitoring [facility] Hospitalart: 44-06-7592Snogt panelLipidsMartinsville Memorial Hospitalart: 89-43-8978Zcecfplc screeningDiabetic Ophthalmology ExamNovant Health New Hanover Regional Medical Centertart: 01-26-1949Medicare Annual Wellness VisitMedicare Annual Wellness VisitNovant Health New Hanover Regional Medical Centertart: 12-49-4039Nidqd screening for proteinUrine MicroalbuminProMedica Health SystemAdult NIV/Positive Airway PressureAdult NIV/Positive Airway Pressure Respiratory Care Routine Every 4hr until discontinued starting 02/07/2024[facility] Memorial HospitalDietBetterComment on above: Every 4hr until discontinued starting 02/07/2024 End: 39-89-5622Nxch XA unfractionated heparinAnti XA unfractionated heparin Lab Routine Once for 1 Occurrences starting 10/26/2023 until 10/26/2023[facility] CenterDel[facility] Work Phone: Comment on above:Once for 1 Occurrences starting 10/26/2023 until 10/26/2023asic metabolic 2000 panel - Serum or PlasmaProMedica Work Phone: End: 23-75-4223Ryeqb Metabolic Panel w/ Reflex to MGBasic Metabolic Panel w/ Reflex to MG Lab Routine Daily for 5 Days starting 02/08/2024 until 02/12/2024, 3 completedBon CortriumComment on above:Daily for 5 Days starting 02/08/2024 until 02/12/2024, 3 completedBedside Glucose *Place/Obtain serum glucose if >500(>600 MRH) per glucometer.Bedside Glucose *Place/Obtain serum glucose if >500(>600 MRH) per glucometer. Point of Care Testing Routine 4X Daily (AC and at bedtime) until discontinued starting 09/08/2023, 10 completed [facility] Work Phone: Comment on above:4X Daily (AC and at bedtime) until discontinued starting 09/08/2023, 10 completedBedside Glucose *Place/Obtain serum glucose if >500(>600 MRH) per glucometer.Bedside Glucose *Place/Obtain serum glucose if >500(>600 MRH) per glucometer. Point of Care Testing Routine 4X Daily (AC and at bedtime) until discontinued starting 10/20/2023, 20 completed [facility] Work Phone: Comment on above:4X Daily (AC and at bedtime) until discontinued starting 10/20/2023, 20 completedBiPAP/CPAP/AutoPAP BiPAP/CPAP/AutoPAP Respiratory Care Routine Every 12 hour check until discontinued starting [address] [place], [place] [address]Comment on above:Every 12 hour check until discontinued starting 09/08/2023 End: 35-64-6874Nbrql count hemoglobinOhioHealth Grant Medical CenterCompontiac general hospital on above: Every Other Day for 3 Days starting 10/25/2023 until 10/27/2023Every Other Day for 3 Days starting 10/25/2023 until 10/27/2023, 1 completed End: 21-67-0780KPZ W Auto Differential panel - BloodCBC auto differential Lab Routine Daily for 5 Days starting 02/08/2024 until 02/12/2024, 3 [facility] on above:Daily for 5 Days starting 02/08/2024 until 02/12/2024, 3 completedCBC W Auto Differential panel - BloodOhioHealth Grant Medical CenterCB W Auto Differential panel - BloodCBC auto differential Lab Routine Lab max of 3 days, Daily, for lab use only until discontinued starting 10/21/2023, 5 [facility] on above:Lab max of 3 days, Daily, for lab use only until discontinued starting 10/21/2023, 5 completed End: 12-56-1241Innkqczo Pathology Blood Smear ReviewOhioHealth Grant Medical Center End: 07-91-2424Txagsxskffb Difficile Toxin/AntigenClostridium Difficile Toxin/Antigen Microbiology Routine 36 Hours Expiring for 36 Hours starting until 5Bon [facility]Compontiac [facility] hospital on above:36 Hours Expiring for 36 Hours starting 11/14/2024 until 11/14/2024omprehensive metabolic 2000 panel - Serum or PlasmaComprehensive metabolic panel Lab Routine Lab max of 3 days, Daily, for lab use only until discontinued starting 10/21/2023, 5 [facility] on above:Lab max of 3 days, Daily, for lab use only until discontinued starting 10/21/2023, 5 completedCulture, Blood 1Culture, Blood 1 Microbiology STAT 02/07/2024 11:[address] [facility] HospitalCulture, Blood 2Culture, Blood 2 Microbiology STAT 02/07/2024 11:[address] [facility] End: 22-89-0233Jeboqgl, UrineSentara [facility]burg [facility] Work Phone: comment on above:Once for 1 Occurrences starting 11/13/2024 until 11/13/2024Erythropoietin (EPO) [Units/volume] in Serum or [facility] Medical CenterFungus identified in Unspecified specimen by CultureProTwisted Pair Solutions Work Phone: End: 47-28-2830Gpbikrfiki and HematocritHemoglobin and Hematocrit Lab Routine Post Transfusion Post Transfusion Post Transfustion until discontinued starting 02/07/2024[facility] CenterComment on above:Post Transfusion Post Transfusion Post Transfustion until discontinued starting 02/07/2024Magnesium [Mass/volume] in Serum or PlasmaProRegional Medical Centerca Health System End: 28-72-4979Uxugonlgl [Mass/volume] in Serum or PlasmaProMedica Work Phone: End: 83-33-4891Mlcntngbe [Mass/volume] in Serum or PlasmaMagnesium Lab Routine Once for 1 Occurrences starting 09/11/2023 until 4ProMedBarnesville Hospital SystemComment on above:Once for 1 Occurrences starting 09/11/2023 until 09/11/2023Magnesium [Mass/volume] in Serum or PlasmaMagnesium Lab Routine Lab max of 3 days, Daily, for lab use only until discontinued starting 10/20/2023, 6 completedProRegional Medical Centerca [facility] SystemComment on above:Lab max of 3 days, Daily, for lab use only until discontinued starting 10/20/2023, 6 completedMethylmalonate [Moles/volume] in Serum or [facility] Medical CenterOxygen Therapy - Maintain SpO2: 90%; *MEDICAL CODER Guidelines for O2: Yes; Document: \[email or web address]\epic\EPIC_Reference\Orders\Respiratory Care Guidelines\CPG Oxygen 2022.pdfProMedica Work Phone: Oxygen Therapy - Maintain SpO2: 90%; *MEDICAL CODER Guidelines for O2: Yes; Document: \[email or web address]\epi c\EPIC_Reference\Orders\Respiratory Care Guidelines\CPG Oxygen 2022.pdfOxygen Therapy - Maintain SpO2: 90%; *MEDICAL CODER Guidelines for O2: Yes; Document: \[email or web address]\epic\EPIC_Reference\Orders\Respiratory Care Guidelines\CPG Oxygen 2022.pdf Respiratory Care Routine AsNeeded until discontinued starting 09/08/2023The NeuroMedical CenterMimecast SystemComment on above:As Needed until discontinued starting 09/08/2023Oxygen Therapy - Maintain SpO2: 90%; *MEDICAL CODER Guidelines for O2: Yes; Document: \[email or web address]\epic\EPIC_Reference\Orders\Respiratory Care Guidelines\CPG Oxygen 2022.pdfOxygen Therapy - Maintain SpO2: 90%; *MEDICAL CODER Guidelines for O2: Yes; Document: \[email or web address]\epi c\EPIC_Reference\Orders\Respiratory Care Guidelines\CPG Oxygen 2022.pdf Respiratory Care Routine AsNeeded until discontinued starting 10/20/2023 [facility] Rock'[facility] Select Specialty HospitalComment on above:As Needed until discontinued starting 10/20/2023Oxygen therapy [Minimum Data Set]Initiate Oxygen Therapy Protocol Respiratory Care Routine Daily until discontinued starting 02/07/2024on FreeWavz [facility] Medical CenterComment on above:Daily until discontinued starting 02/07/2024Oxygen therapy [Minimum Data Set]Initiate Oxygen Therapy Protocol Respiratory Care Routine As Needed until discontinued starting 5Bon [facility] Work Phone: Comment on above:As Needed until discontinued starting 11/14/2024Pathologist review of Blood testsOhioHealth Grant Medical CenterPatient EducationCoronary Angioplasty (DC) Coronary Stenting (DC) Angina (DC) Chest Pain (DC) Drug Eluting StentsCenterville Ctr Work Phone: Patient referralCenterville Ctr Work Phone: Phosphate [Mass/volume] in Serum or PlasmaSelect Medical Specialty Hospital - Youngstownca [facility] System End: 14-29-0839Iwzytdmtm [#/volume] in BloodPlatelet count Lab Routine Daily for 3 Days starting 10/21/2023 until 4PMary [facility] Work Phone: Comment on above:Daily for 3 Days starting 10/21/2023 until 10/23/2023 End: 65-23-3530Dtsmcezdn [Moles/volume] in Serum or PlasmaPotassium Lab Routine Once for 1 Occurrences starting 09/11/2023 until 09/11/2023roMedbaptist medical center east Work Phone: Comment on above:Once for 1 Occurrences starting 09/11/2023 until 09/11/2023 End: 53-71-9886PJJPTTR RBC (CROSSMATCH), 2 UnitsPREPARE RBC (CROSSMATCH), 2 Units Blood Bank Routine Once for 1 Occurrences starting 02/07/2024 until 02/07/2024on [facility] SocialGuideSentara Halifax Regional HospitalComment on above:Once for 1 Occurrences starting 02/07/2024 until 02/07/2024Surgical PathologyProMedica Work Phone: End: 84-96-2304QpocCmq [facility] Work Phone: Comment on above:One Time for 1 Occurrences starting 02/08/2024 until 02/08/2024 Immunizations Immunization DateImmunizationNotesCare NutiwijiVqqalwbq36-85-6161cymgjhjjaqto polysaccharide vaccine, 23 valentMatthew Claudia Other [facility]10-21-2021influenza, seasonal, injectableMattkristiew Claudia Other [facility]10-21-2021influenza virus vaccine, unspecified formulationPaMissouri Rehabilitation Center 95-89-7068Ajrngcrhn, High-dose, QuadrivalentShirley Anderson MD Work Phone: [facility] CenterKekhxu96-82-0463FSKLP-44 Vaccine Pfizer - Documentation Purposes OnlyMatthew Claudia Other [facility]02-24-2021COVID-19 Vaccine Pfizer - Documentation Purposes OnlyMatthew Claudia Other [facility]01-06-2021 pneumococcal conjugate vaccine, 13 valentMatthew Claudia Other [facility]12-06-2019influenza, high dose seasonal, preservative-freeDO Melanie Taylor Work Phone: [facility]08-01-2019tuberculin skin test; unspecified formulationShirley Anderson MD Work Phone: [facility] CenterKrbykh85-77-9914usmbpfyyo virus vaccine, unspecified formulationShirley Anderson MD Work Phone: [facility] Payers DatePayer CategoryPayerPolicy [id number] [id number] 2024Medicare HMO [id number] 2018Medicaid 1.2.84[id number] [id number] [id number] [id number] 2.840.1.055241.3.57[id number] 2.840.1.321338.3.57[id number] 2.16840.1.200187.3.57[id number] 2.16840.1.315569.3.579.2.[id number] 2.16840.1.526893.3.579.2.756570-32-2482Ojkqazd39001740 2.16.840.1.266137.3.57[id number] 2.16840.1.006768.3.57[id number] 2.16840.1.342178.3.57[id number] 2.840.1.207227.3.579.2.424545-15-2671Iccwjce14645125 2.840.1.407585.3.579.2.376696-95-4926Yqffxea43589914 2.0.1.547754.3.579.2.086556-31-2090Psnhpko00317024 2.840.1.865713.3.579.2.007312-82-9014Rtmhirm33069979 2.840.1.853989.3.579.2.561391-69-0894Lgbdnhm62021474 2.840.1.147916.3.579.2.14166-90-1932Qzmqrso88701807 2.840.1.497858.3.579.2.907586-30-3382Aveukvm899571183 2.840.1.718252.3.579.2.359914-53-7639Bcirusl754947959 2.840.1.290429.3.579.2.096322-41-6550Fmifbvc232199322 2.840.1.176921.3.579.2.320599-46-7982Gulyvku537748364 2.16840.1.243805.3.579.2.757344-19-4381Wthmdca002646913 2.840.1.133053.3.579.2.124180-21-5744Vognmgr88258902 2.16840.1.385602.3.579.2.893830-08-3436Kqxawej72624544 2.16840.1.106957.3.579.2.633985-51-4488Ertdmjr82003404 2.16840.1.179339.3.579.2.782182-13-6212Ofzokvf40502935 2.16840.1.323688.3.579.2.500378-30-1254Pccfcmi40739188 2.0.1.910017.3.579.2.847822-77-9623Xwabkmv78002375 2.840.1.035594.3.579.2.724879-31-6113Nmxkphr82886807 2.840.1.059192.3.579.2.854950-63-5409Smrnwvd14431418 2.840.1.644457.3.579.2.625878-97-3469Dbjwyuu60535529 2.840.1.265873.3.579.2.988422-23-3594Ozplkqn27241084 2.840.1.398559.3.579.2.556098-02-6793Vfhtjms41433236 2.16840.1.600421.3.579.2.490831-53-6807Ymmegvn927108098 2.16840.1.830798.3.579.2.441323-14-2163Kosvnjb105656874 2.16840.1.966750.3.579.2.155055-35-5418Hpofhqx446435238 2.840.1.552365.3.579.2.589120-34-7793Qjaanwr365095642 2.16840.1.867657.3.579.2.526425-96-2523Wnhbvui30967100 2.16840.1.623343.3.579.2.700912-62-9423Qtyfadu81507916 2.16840.1.252197.3.579.2.895559-79-3308Bqgepiq31864267 2.16840.1.069352.3.579.2.673301-93-2115Nthrlpb29319980 2.16840.1.089518.3.579.2.728342-82-2292Cgswmzb21339069 2.840.1.959592.3.579.2.318163-40-2451Bwhskfj08770485 2.840.1.302384.3.579.2.400477-38-8890Luvptxq78784983 2..1.925786.3.579.2.905913-73-9541Rcvtmkl94353003 2.840.1.785395.3.579.2.232696-93-9058Ffgtiub87342661 2.0.1.229672.3.579.2.593858-70-3729Qldykgv68955212 2.16840.1.029758.3.579.2.763107-54-3372Dijcvxd62695519 2.16840.1.493055.3.579.2.500181-36-0718Flnjgop25536672 2.16840.1.109655.3.579.2.719659-83-0225Rbdazkw75533230 2.16840.1.030581.3.579.2.608463-98-6269Qifayob58264944 2.0.1.774039.3.579.2.573179-67-6923Hnxivif95210849 2.0.1.194572.3.579.2.979147-67-5873Esehjnt696560694 2..1.48[id number] 2..1.128802.19Private Health [id number] 20272g9a-9g1y-67f8-7y26-m3plafy66p0uKjxdgfk35697783 2..1.661629.3.579.2.531 Social History DateTypeDetailFacilityStart: 02-07-2024 End: 96-34-0220Faf Assigned At [facility] [employer] Other Start: 05-18-2018 End: 51-55-0651Ymyaxbv smoking status NHISNever smoked tobacco (finding) [facility] Centertart: 46-03-7482Hhg Assigned At [facility] Hospitaltart: 05-18-2018 End: 18-01-4426Ozczllm use and exposureSmokeless tobacco non-userSelect Medical Specialty Hospital [facility], Inc SystemStart: 02-07-2024 End: 23-17-5262Obuebbyju beverage intakeLifetime non-drinker (finding)[facility] CortriumStart: 02-07-2024 End: 07-30-7017Gkcgqzi of Social functionBon CortriumHas the [employer], gas, oil, or water company threatened to shut off services in your home in past 12Saint [facility] Health SystemoProUniversity Hospitals Health System SystemHow often to you have a drink containing alcohol?NeverBon FreeWavz [facility] Medical CenterHow many standard drinks containing alcohol do you have on a typical day?Patient does not drinkBon FreeWavz [facility](I/We) worried whether (my/our) food would run out before (I/we) got money to buy more.Never trueJasmeet Stephen [facility] Va Medical Centeratilio [facility] Medical CenterStart: 1950 Sex assigned at birthNot on fileSelect Medical Specialty Hospital - [facility] Tonsil Hospitaltart: 12-09-2023 End: 17-43-6749Noumgmbjn beverage intakeEx-drinker (finding)[facility] CenterAre you now , , , , never or living with a partner?DivorcedOhioHealth Grant Medical CenterDo you feel stress - tense, restless, nervous, or anxious, or unable to sleep at night because yourmind is troubled all the time - these days [OSQ]Very muchSelect Medical Specialty Hospital - Akron Rock'n Rover Tonsil Hospitaltart: 59-87-6845Srymuof Commentlast drink 2004[facility] Tonsil Hospitaltart: 04-02-2012 End: 03-78-2371NtrEclv (finding)[facility] Medical Equipment Procedure CodeEquipment CodeEquipment Original TextEquipment IdentifierDates Arthroscopy, shoulderANCHOR SUTURE FT III 5.5X16.3MFDAStart: 22-81-8833Lbwhj: 34-45-4274ZU STENT CONRADO FRONTIER 3.5 X 18FDAStart: 74-08-3151Mdmktgv artery closure plug/patch, synthetic polymer()[id number] FDAStart: 07-19-2023 [id number]: 73-17-7942105272_xxzJdudv: 29-56-8999294705_mtdOyccl: 64-21-9809141392_egfKzipq: 03-16-2024 Goals DatePatient GoalDesired Activity/StatePersonal health goalComment on above: Evaluation of progress towards goal: Home with self care.Personal health goal Comment on above: Evaluation of progress towards goal: Current Discharge Plan; home alone, self care. Tasked for new PCP apptPersonal health goalComment on above: Evaluation of progress towards goal: Will need acceptance and prior authorizationPersonal health goalComment on above: Evaluation of progress towards goal: Patient is requesting home health care. Requested services RN/Aid and if [facility] can accept she will require telehealth for CHF maintenance.Personal health goalComment on above: Evaluation of progress towards goal: progress to a safe discharge home with home carePersonal health goalComment on above: Evaluation of progress towards goal: Patient plans on discharge home w/self care and home care services.Personal health goalComment on above: Evaluation of progress towards goal: under assessmentPersonal health goalComment on above: Evaluation of progress towards goal: Patient plans for a safe discharge home with resumption of [facility]. Functional Status LglfSbmqbeflneZjwegxXfbfydkm01-33-5944Aawkcsckqz statusPatient is Progressing Toward [facility] Work Phone: [facility] Mental Status JvzdTbeqmmzshfOtoikoHwkbcvvv75-22-6849Xpdgmpsgr functionCognitive Status Patient at [facility] Work Phone: [facility] Clinical Notes 11-26-2020 to 11-26-2024 Note Date & FddsMhttGvwkgrxu58-38-5444 NoteChief complaint/HPI/Plan: The patient is a 74-year-old male evaluated in follow-up. Earlier in the year he had a left ureteral stent placed at an outside facility for a 1.2 cm left renal pelvic stone. The stent remained in place for many months and he had gross hematuria. He is on anticoagulation for his cardiac issues. Approximately 2 weeks ago he was taken to the operating room for an attempt at a left ureteroscopy with laser lithotripsy however the patient had a membranous urethral stricture that was very dense and difficult to pass. Once we were able to get into the bladder I was not able to access the left ureteral orifice so the stent was just removed. A follow-up CT scan showed no significant hydronephrosis. Today the patient has minimal to no left flank pain and is hematuria has resolved. I discussed with him other options including PCNL. Will refer to Dr. Mcbride. I have personally reviewed the imaging and lab work relevant to the patient visit. Diagnosis: Left renal pelvic stone Vitals: 11/26/24 0902 BP: 137/75 Pulse: 77 Temp: 36.4 ???C (97.6 ???F) Exam: Constitutional: Patient is in no acute distress Psychiatric: Normal affect HEENT: No head or neck abnormalities or jaundice Pulmonary: Patient is not laboring to breathe Neurologic: No obvious neurologic abnormalities Extremities: No deformity Cardiovascular: No obvious cyanosis of the extremities Integumentary: No obvious rash Problem List[1] Medical History[2] Surgical History[3] Medications Ordered Prior to Encounter[4] Allergies[5] Social History Socioeconomic History Marital status: Spouse name: Not on file Number of children: Not on file Years of education: Not on file Highest education level: Not on file Occupational History Not on file Tobacco Use Smoking status: Never Passive exposure: Never Smokeless tobacco: Never Substance and Sexual Activity Alcohol use: Never Drug use: Never Sexual activity: Never Other Topics Concern Not on file Social History Narrative Not on file Social Drivers of Health Financial Resource Strain: Low Risk (11/09/2024) Overall Financial Resource Strain (CARDIA) Difficulty of Paying Living Expenses: Not very hard Food Insecurity: No Food Insecurity (11/14/2024) Received from [facility] Hunger Vital Sign Worried About Running Out of Food in the Last Year: Never true Ran Out of Food in the Last Year: Never true Transportation Needs: No Transportation Needs (11/14/2024) Received from [facility] PRAPARE - Transportation In the past 12 months, has lack of transportation kept you from medical appointments or from getting medications?: No In the past 12 months, has lack of transportation kept you from meetings, work, or from getting things needed for daily living?: No Physical Activity: Inactive (05/06/2024) Received from [facility] Exercise Vital Sign Days of Exercise per Week: 0 days Minutes of Exercise per Session: 0 min Stress: Stress Concern Present (05/06/2024) Received from [facility] [employer] [place] [facility] [employer] [facility] - Occupational Stress Questionnaire Feeling of Stress : Very much Social Connections: Moderately Isolated (05/06/2024) Received from [facility] Social Connection and Isolation Panel [NHANES] Frequency of Communication with Friends and Family: More than three times a week Frequency of Social Gatherings with Friends and Family: Never Attends Confucianist Services: More than 4 times per year Active Member of Clubs or Organizations: No Attends Club or Organization Meetings: Never Marital Status: Intimate Partner Violence: Unknown (11/09/2024) Humiliation, Afraid, Rape, and Kick questionnaire Fear of Current or Ex-Partner: No Emotionally Abused: Not on file Physically Abused: Not on file Sexually Abused: Not on file Housing Stability: Low Risk (11/14/2024) Received from [facility] Housing Stability Vital Sign Unable to Pay for Housing in the Last Year: No Number of Times Moved in the Last Year: 0 Homeless in the Last Year: No Family History[6] Tristan Abernathy MD [1] Patient Active Problem List Diagnosis Acute coronary syndrome (CMS/HCC) Anxiety disorder Atypical chest pain Bacteremia due to methicillin resistant Staphylococcus aureus Benign essential hypertension Body mass index 40.0-44.9, adult (CMS/HCC) CHF exacerbation (CMS/HCC) Chronic diastolic congestive heart failure (CMS/HCC) Chronic respiratory failure with hypoxia (CMS/HCC) Community acquired pneumonia of left lower lobe of lung COPD (chronic obstructive pulmonary disease) (CMS/HCC) Coronary arteriosclerosis Dependence on supplemental oxygen Difficulty walking Dizziness Dyslipidemia Dyspnea Erectile dysfunction GERD with esophagitis HTN (hypertension) [employer] current use (more content not included)...[facility]09-23-2025 NoteEXAMINATION: ULTRASOUND OF THE SCROTUM/TESTICLES WITH COLOR DOPPLER [...] demonstrates normal homogeneous echotexture without focal lesion. No evidence of testicular microlithiasis. Doppler Evaluation: There is normal arterial and venous Doppler flow within the testicle. Scrotal Sac: No evidence of hydrocele. Epididymis: No acute abnormality. Left: Carrion Scale: The left testicle demonstrates normal homogeneous echotexture without focal lesion. No evidence of testicular microlithiasis. Doppler Evaluation: There is normal arterial and venous Doppler flow within the testicle. Scrotal Sac: No evidence of hydrocele. Epididymis: No acute abnormality. [facility] RIS [id number] NoteEXAMINATION: ULTRASOUND OF THE SCROTUM/TESTICLES WITH COLOR DOPPLER [...] demonstrates normal homogeneous echotexture without focal lesion. No evidence of testicular microlithiasis. Doppler Evaluation: There is normal arterial and venous Doppler flow within the testicle. Scrotal Sac: No evidence of hydrocele. Epididymis: No acute abnormality. Left: Carrion Scale: The left testicle demonstrates normal homogeneous echotexture without focal lesion. No evidence of testicular microlithiasis. Doppler Evaluation: There is normal arterial and venous Doppler flow within the testicle. Scrotal Sac: No evidence of hydrocele. Epididymis: No acute abnormality. IMPRESSION: Unremarkable testicular ultrasound with normal Doppler flow. Interpreted by: Nikki Autsin MD Signed by: Nikki Austin MD 11/13/24 [facility] NoteHospital Medicine Discharge Summary Admission Date: 11/09/2024 1:39 PM Length of Stay: 3 days Date of Admission: 11/09/2024 Date of Discharge: 11/12/2024 Reason for Admission Left nephrolithiasis with ureteral stent removal, complicated by postoperative fever and sepsis. 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 He was diagnosed with left nephrolithiasis in February 2024 and underwent left ureteral stent placement for acute kidney injury and urosepsis related to a 1.5 cm stone. He subsequently had left flank pain and was found on repeat CT (09/2024) to have a 9 mm left renal pelvic stone. He presented on 11/09/2024 for elective left ureteroscopy with holmium laser lithotripsy, urethral dilation, and stent removal. Preoperative urine cultures earlier in October were negative. Postoperatively, the patient developed fever (Tmax 103.6???F) and borderline hypotension on 11/10/2024, prompting transfer to the ICU for concern of sepsis. He was treated empirically with vancomycin and Zosyn perioperatively, then transitioned to cefepime. Blood cultures remained negative to date; urinalysis was abnormal but not reflexed to culture. Pertinent Hospital Course Urosepsis / Postoperative Fever: Developed high-grade fever and rigors post-procedure. Initially treated with vancomycin/Zosyn, then cefepime for 3 days. Infectious Disease consulted: recommended discharge on oral cefpodoxime to complete 10-day total course; received one dose of tobramycin prior to discharge. Urology recommended nephrostomy tube placement for continued drainage; however, the patient declined intervention. He insists on definitive stone removal, which was not offered this admission. Urology: Underwent cystoscopy, urethral dilation, and left stent removal on 11/09/2024. Repeat CT abdomen/pelvis showed persistent 1 cm left renal pelvic stone with hydronephrosis. No further inpatient procedures planned; follow-up with outpatient urology arranged. ICU Course: Monitored for sepsis and hemodynamic instability. Remained hemodynamically stable, never required vasopressors. Transferred back to medical floor on 11/11/2024. Chronic Medical Problems: CAD s/p CABG, TAVR (2023) - stable. CHF - compensated, no acute exacerbation. COPD - stable. Hypertension, type 2 diabetes, obesity, AAA - stable. Behavior / Compliance: Patient was intermittently uncooperative with medical staff. Declined nephrostomy tube placement despite urology recommendation. Discharge Diagnoses Left nephrolithiasis with hydronephrosis, status post ureteroscopy and stent removal Urosepsis, treated, transitioned to oral antibiotics Coronary artery disease status post CABG Severe aortic stenosis status post TAVR (2023) Hypertension Chronic heart failure COPD Type 2 diabetes mellitus Abdominal aortic aneurysm Obesity (BMI 34) Follow-Up Urology: Outpatient follow-up for definitive stone management. Infectious Disease: Outpatient follow-up for completion of antibiotic therapy. Primary Care / Cardiology: Resume chronic disease management. Condition at Discharge Afebrile, hemodynamically stable, ambulating. Call catheter in place with blood-tinged urine, expected given recent urologic procedure. Patient understands need for follow-up but continues to decline nephrostomy tube placement. Dear MD Zaid, Brian is advised to follow up with you within 1-2 weeks. Items to follow up in ambulatory setting: None Follow-up with: Infectious Disease and Urology Scheduled appointments: Future Appointments Date Time Provider Department Center 11/22/2024 9:15 AM Tristan Abernathy MD [facility] URO Second Fl Your medication list START taking these medications Instructions Last Dose Given Next Dose Due cefpodoxime 200 mg tablet Commonly known as: Vantin Take 1 tablet (200 mg) by mouth two times daily for 7 days. hyoscyamine 0.125 mg dissolvable tablet Commonly known as: Levsin SL Take 1 tablet (0.125 mg) by mouth every 4 (four) hours if needed (bladder spasm). CONTINUE taking these medications Instructions Last Dose Given Next Dose Due acetaminophen 325 mg tablet Commonly known as: Tylenol albuterol 2.5 mg /3 mL (0.083 %) nebulizer solution amitriptyline 25 mg tablet Commonly known as: Elavil aspirin 81 mg EC tablet cyanocobalamin 500 mcg tablet Commonly known as: Vitamin B-12 FLUoxetine 20 mg capsule Commonly known as: PROzac folic acid 1 mg tablet Commonly known as: Folvite furosemide 20 mg tablet Commonly known as: Lasix HUMALOG PEN SUBQ HYDROcodone-acetaminophen 5-325 mg tablet Commonly known as: Girard hydrOXYzine HCL 50 mg tablet Commonly known as: Atarax lisinopril 2.5 mg tablet metFORMIN XR 750 mg 24 h (more content not included)...[facility]09-22-2025 NoteInfectious Diseases - progress Note - Patient name: Brian Mandel Patient Today's Date and Time: 11/12/2024, 7:45 AM Admission Date: 11/09/2024 Impression: Hypotension and fever 24 hours after urologic procedure( cysto urethral dilation and left stent removal for nephrolithiasis . Preop cultures were negative. He received Zosyn and vancomycin periOp. This is a high risk patient as he has a TAVR and a history of MRSA bacteremia with no clear source in July 2023 1 cm calculus left renal pelvis with mild left hydroureter Recommendations: He did not want to be seen and refuses procedures and he wants to be discharged I was going to give him oral cipro but due to history of AAA he will receive one dose of aminoglycoside before discharge But Dr Rebolledo has given him cefpodoxime 200 mg oral q 12 hours instead which is very reasonable Subjective History of Present Illness Brian Mandel is a 74 y.o.-year-old male who was initially admitted on 11/09/2024. This is a 74-year-old man history of obesity BMI 34 type 2 diabetes hypertension, AAA, history of coronary disease status post CABG, status post TAVR 11/2023, history of MRSA bacteremia in July 2023, history of staghorn calculi in February of this year treated at [facility]. Seen by Dr. Abernathy (urology) in June for another left kidney stone. Followed up 10/31 and there was a plan for laser lithotripsy Admitted 11/09 for the procedure. Underwent cystoscopy urethral dilatation and removal of left stent. Preop urine cultures in early October were negative. Yesterday night he developed a fever 103.6 and the blood pressure was borderline low so he was transferred to the ICU. The patient has received vancomycin and Zosyn around the time of the cystoscopy and he was started on cefepime last night after being transferred to the ICU. Blood cultures were drawn and they are negative to date A urinalysis was obtained but not reflexed to culture. I asked the nurse to add it on. Patient is very frustrated he states he wants to have the kidney stone out. He is currently borderline hypotensive but mentation is normal no more fever since yesterday 11/12 No fever Urology team want to place nephrostomy I tried to see him He said Get out of here,I do not want another [facility] nurse to see me Objective Physical Examination: BP 105/56 (BP Location: Left arm, Patient Position: Lying) Pulse 68 Temp 36.8 ???C (98.3 ???F) (Oral) Resp 25 Ht 1.524 m (5') Wt 81.4 kg (179 lb 7.3 oz) SpO2 100% BMI 35.05 kg/m??? Temperature Range: Temp: 36.8 ???C (98.3 ???F) Temp Av.6 ???C (97.9 ???F) Min: 36.1 ???C (97 ???F) Max: 37.2 ???C (99 ???F) He refused to be seen or examined Labs: Results from last 7 days Lab Units 11/12/24 0430 11/11/24 0320 11/10/24 0821 WBC AUTO 10*3/uL 8.59 10.75* 10.26 HEMOGLOBIN g/dL 8.7* 8.6* 9.3* HEMATOCRIT % 26.7* 26.3* 28.2* MCV fL 108.5* 109.6* 106.8* PLATELETS AUTO 10*3/uL 143* 152 159 NEUTROS ABS 10*3/uL 5.98 8.60* -- LYMPHS ABSOLUTE 10*3/uL 1.46 1.22 -- MONOS ABSOLUTE 10*3/uL 0.71 0.74 -- EOS ABSOLUTE 10*3/uL 0.34 0.10 -- BASOS ABSOLUTE 10*3/uL 0.04 0.04 -- Results from last 7 days Lab Units 11/12/24 0430 11/11/24 0348 11/10/24 0821 POTASSIUM mmol/L 4.0 3.9 4.1 CHLORIDE mmol/L 106 106 106 CO2 mmol/L 24 24 24 BUN mg/dL 13 13 13 CREATININE mg/dL 1.15 1.15 1.12 CALCIUM mg/dL 8.7 8.4* 8.4* TOTAL PROTEIN g/dL -- 6.2 -- BILIRUBIN TOTAL mg/dL -- 0.5 -- ALK PHOS U/L -- 133* -- ALT U/L -- 16 -- AST U/L -- 22 -- No lab exists for component: PROCALCITON Results from last 7 days Lab Units 11/11/24 0032 11/09/24 1922 GLUCOSE U MG/DL mg/dL Normal Unable to Perform Due to Color Interference UROBILINOGEN URINE mg/dL Normal Unable to Perform Due to Color Interference BILIRUBIN U Negative Unable to Perform Due to Color Interference WBC UR HPF /HPF >50* 6-10* Imaging Studies: I have reviewed myself the following imaging studies performed in the past 3 days: XR chest 1 view Result Date: 11/10/2024 * No evidence of pulmonary infiltrate, acute pulmonary pathology or significant interval change. Electronically signed: Pandajuanjose Teagueel. CT abdomen pelvis wo IV contrast Result Date: 11/11/2024 * Interval removal of left ureteral stent. [...] this report. Electronically signed: Braulio De Anda. (more content not included)...[facility]09-22-2025 Note Attestation signed by Betty May MD at 11/22/2024 9:58 AM I discussed with the resident physician and agree with the note above Urology Daily Progress Note HISTORY OF PRESENT ILLNESS: The patient is a 74 y.o. male who presents with Nephrolithiasis who s/p cysto urethral dilation, L stent removal. Interval Summary: - Pt downgraded from ICU - Remained normotensive overnight - Denies nausea, vomiting - Pain is well controlled - Call in place, removing today - Still hesitant about possible nephrostomy tube Physical Exam: This a 74 y.o. patient Patient Vitals for the past 24 hrs: BP Temp Temp src Pulse Resp SpO2 Weight 11/12/24 0439 -- -- -- -- -- -- 81.4 kg (179 lb 7.3 oz) 11/12/24 0400 105/56 -- -- 68 25 100 % -- 11/12/24 0000 102/63 36.8 ???C (98.3 ???F) Oral 69 23 98 % -- 11/11/24 2006 116/69 36.9 ???C (98.5 ???F) Oral 62 22 99 % -- 11/11/24 1800 108/55 36.9 ???C (98.4 ???F) -- 68 25 97 % -- 11/11/24 1700 -- 36.1 ???C (97 ???F) -- 67 26 93 % -- 11/11/24 1645 135/68 36.2 ???C (97.2 ???F) -- 87 22 95 % -- 11/11/24 1630 103/62 36.4 ???C (97.5 ???F) -- 60 18 95 % -- 11/11/24 1615 109/54 36.4 ???C (97.5 ???F) -- 62 24 97 % -- 11/11/24 1600 109/66 36.4 ???C (97.5 ???F) -- 68 21 93 % -- 11/11/24 1545 108/74 36.4 ???C (97.5 ???F) -- 66 23 97 % -- 11/11/24 1530 107/56 36.4 ???C (97.5 ???F) -- 60 19 93 % -- 11/11/24 1515 110/59 36.4 ???C (97.5 ???F) -- 58 19 92 % -- 11/11/24 1500 103/56 36.4 ???C (97.5 ???F) -- 61 18 95 % -- 11/11/24 1445 102/54 36.4 ???C (97.5 ???F) -- 60 20 92 % -- 11/11/24 1430 97/55 36.4 ???C (97.5 ???F) -- 62 24 93 % -- 11/11/24 1415 98/51 36.4 ???C (97.5 ???F) -- 59 17 93 % -- 11/11/24 1400 103/53 36.4 ???C (97.5 ???F) -- 59 18 92 % -- 11/11/24 1345 93/54 36.4 ???C (97.5 ???F) -- 61 21 94 % -- 11/11/24 1330 95/50 36.4 ???C (97.5 ???F) -- 62 19 93 % -- 11/11/24 1315 98/51 36.4 ???C (97.5 ???F) -- 62 17 92 % -- 11/11/24 1300 88/54 36.4 ???C (97.5 ???F) -- 61 19 92 % -- 11/11/24 1245 88/56 36.4 ???C (97.5 ???F) -- 59 19 93 % -- 11/11/24 1230 116/72 36.4 ???C (97.5 ???F) -- 66 23 96 % -- 11/11/24 1215 98/56 36.5 ???C (97.7 ???F) -- 61 21 95 % -- 11/11/24 1200 98/53 36.5 ???C (97.7 ???F) -- 63 20 92 % -- 11/11/24 1145 96/56 36.5 ???C (97.7 ???F) -- 65 16 94 % -- 11/11/24 1130 95/54 36.5 ???C (97.7 ???F) -- 63 21 94 % -- 11/11/24 1115 (!) 106/49 36.4 ???C (97.5 ???F) -- 62 23 96 % -- 11/11/24 1100 -- 36.2 ???C (97.2 ???F) -- 66 20 95 % -- 11/11/24 1030 111/54 37 ???C (98.6 ???F) -- 73 15 98 % -- 11/11/24 1000 86/50 37.2 ???C (99 ???F) -- 68 22 96 % -- 11/11/24 0945 95/52 37.2 ???C (99 ???F) -- 65 19 98 % -- 11/11/24 0930 104/50 37.2 ???C (99 ???F) -- 65 24 98 % -- 11/11/24 0915 101/52 37.2 ???C (99 ???F) -- 68 21 99 % -- 11/11/24 0900 105/50 37.2 ???C (99 ???F) -- 66 (!) 27 98 % -- 11/11/24 0845 104/52 37.2 ???C (99 ???F) -- 73 21 98 % -- 11/11/24 0830 103/50 37.2 ???C (99 ???F) -- 69 25 99 % -- 11/11/24 0827 -- -- -- -- -- 96 % -- 11/11/24 0815 98/55 37.2 ???C (99 ???F) -- 71 23 97 % -- 11/11/24 0800 108/55 37.2 ???C (99 ???F) -- 71 26 97 % -- 11/11/24 0700 103/79 37 ???C (98.6 ???F) -- 78 23 98 % -- Constitutional: Patient in no acute distress; Neuro: alert and oriented to person place and time. Psych: Mood and affect normal. Skin: Normal Lungs: Respiratory effort normal Cardiovascular: Normal peripheral pulses Abdomen: Soft, non-tender, non-distended with no CVA, flank pain, hepatosplenomegaly or hernia. Lymphatics: no palpable lymphadenopathy Call catheter in place draining marc urine LABS: Results from last 7 days Lab Units 11/12/24 0430 11/11/24 0320 11/10/24 0821 WBC AUTO 10*3/uL 8.59 10.75* 10.26 HEMOGLOBIN g/dL 8.7* 8.6* 9.3* HEMATOCRIT % 26.7* 26.3* 28.2* PLATELETS AUTO 10*3/uL 143* 152 159 Results from last 7 days Lab Units 11/12/24 0430 11/11/24 0348 11/10/24 0821 SODIUM mmol/L 137 135* 134* POTASSIUM mmol/L 4.0 3.9 4.1 CHLORIDE mmol/L 106 106 106 CO2 mmol/L 24 24 24 BUN mg/dL 13 13 13 CREATININE mg/dL 1.15 1.15 1.12 CALCIUM mg/dL 8.7 8.4* 8.4* No results found for: PSA Assessment and Plan Impression: Rigors/Hypotension following cysto, urethral dilation, left stent removal H/o urosepsis back in February Plan: Consult cardiology for holding anti-platelet meds prior to surgical intervention Possible IR Neph tube Monitor daily labs Call removal today DO Sim [facility] Note Attestation signed by Ian Murray MD at 11/11/2024 4:22 PM I reviewed the salient portions of the patient history. I have seen and examined the patient during rounds with the resident/fellow.Jadiel. I repeated the benoit components of the exam. Agree with the noted assessment and plan. Patient was admitted to the intensive care unit following urological procedure for lithotripsy of placing a new stent with obstructive uropathy. Patient is slightly obtunded with worsening kidney function started. Blood cultures pending however patient had history of TAVR given his infection will need to monitor blood cultures and probably do the echocardiography. Appreciate ID input. Patient was started on cefepime . The patient is critically ill and requires high complexity decision making for assessment and support including: frequent evaluation and titration of therapies; extensive interpretation of multiple databases; application of advanced monitoring technologies and assessment and treatment of complex metabolic derangement. Total time spent providing critical care services was 30 minutes excluding time spent on updating family and performing procedures which are billed separately Ian Murray MD Pulmonary Progress Note Patient - Brian Mandel Age - 74 [facility]. [facility] 1950 [id number] Date of Admission - 11/09/2024 1:39 PM SUBJECTIVE Patient was seen and examined at bedside. He is saturating well on room air. He is hemodynamically stable off pressors. No acute complaints at this time. OBJECTIVE Vitals height is 1.524 m (5') and weight is 80 kg (176 lb 5.9 oz). His temperature is 36.4 ???C (97.5 ???F). His blood pressure is 97/55 and his pulse is 62. His respiration is 24 and oxygen saturation is 93%. Temp: [36.2 ???C (97.2 ???F)-39.8 ???C (103.6 ???F)] 36.4 ???C (97.5 ???F) Heart Rate: [59-95] 62 Resp: [15-34] 24 BP: (86-127)/(49-79) 97/55 Physical Exam: General: Patient is alert and oriented x3, not in acute distress. HEENT: Atraumatic, normocephalic, PERRLA Neck: Supple neck. Respiratory: Clear breathing sound bilaterally, no wheezing no crackles. Heart: Regular rhythm, no murmur, no rub. Neurology: Can move all extremities, no focal deficit. Abdomen: Soft, not distended, not tender, Freitas sign is negative. Extremities: No cyanosis, no edema. Skin: Warm and dry. Weight: Admission weight: 78.6 kg (173 lb 4.5 oz) Wt Readings from Last 1 Encounters: 11/11/24 80 kg (176 lb 5.9 oz) Input/Output: Intake/Output Summary (Last 24 hours) at 11/11/2024 1446 Last data filed at 11/11/2024 1400 Gross per 24 hour Intake 1025 ml Output 2615 ml Net -1590 ml Lab Results CBC: Results from last 7 days Lab Units 11/11/24 0320 11/10/24 0821 11/09/24 1840 WBC AUTO 10*3/uL 10.75* 10.26 11.80* HEMOGLOBIN g/dL 8.6* 9.3* 10.3* HEMATOCRIT % 26.3* 28.2* 32.7* PLATELETS AUTO 10*3/uL 152 159 195 Coagulation: Results from last 7 days Lab Units 11/10/24 2333 INR 1.22* Metabolic Panel: Results from last 7 days Lab Units 11/11/24 0348 11/10/24 0821 11/09/24 1840 SODIUM mmol/L 135* 134* 137 POTASSIUM mmol/L 3.9 4.1 4.0 CHLORIDE mmol/L 106 106 107 CO2 mmol/L 24 24 20* BUN mg/dL 13 13 13 CREATININE mg/dL 1.15 1.12 1.09 GLUCOSE mg/dL 104* 98 103* CALCIUM mg/dL 8.4* 8.4* 9.0 MAGNESIUM mg/dL 1.7* -- -- Cardiac: No lab exists for component: TROPI , TROPONIN Radiology CT abdomen pelvis wo IV contrast Narrative: CT ABDOMEN PELVIS WO IV CONTRAST HISTORY: Left ureteral stent, left pelvic stone COMPARISON: 10/07/2024 TECHNIQUE: CT images of the abdomen and pelvis obtained without the administration of contrast. Lack of IV contrast limits evaluation, especially solid organs. Automated exposure control was utilized. [...] periureteral stranding. The bladder is decompressed with Call ca (more content not included)...[facility]09-21-2025 NoteUrology Daily Progress Note HISTORY OF PRESENT ILLNESS: The patient is a 74 y.o. male who presents with Nephrolithiasis who s/p cysto urethral dilation, L stent removal. Spiked fever of 103 yesterday and continued to be hypotensive, transferred to ICU for high-level care Pain well-controlled Denies nausea or vomiting Call catheter in place Patient hesitant about nephrostomy tube placement Physical Exam: This a 74 y.o. patient Patient Vitals for the past 24 hrs: BP Temp Temp src Pulse Resp SpO2 Weight 11/11/24 0601 -- 37.1 ???C (98.8 ???F) Temporal -- -- -- -- 11/11/24 0600 104/57 37.4 ???C (99.3 ???F) Axillary 71 25 96 % -- 11/11/24 0500 94/57 37.3 ???C (99.1 ???F) -- 71 24 98 % -- 11/11/24 0400 100/53 37.2 ???C (99 ???F) Axillary 68 23 99 % -- 11/11/24 0345 112/58 37.1 ???C (98.8 ???F) Temporal 69 25 99 % -- 11/11/24 0321 -- 37 ???C (98.6 ???F) Temporal -- -- -- 80 kg (176 lb 5.9 oz) 11/11/24 0300 112/50 37.4 ???C (99.3 ???F) Axillary 69 23 99 % -- 11/11/24 0215 106/52 37.5 ???C (99.5 ???F) Axillary 78 25 98 % -- 11/11/24 0200 105/57 37.3 ???C (99.1 ???F) -- 74 24 99 % -- 11/11/24 0159 -- 37.3 ???C (99.1 ???F) -- 73 24 99 % -- 11/11/24 0131 -- 37.5 ???C (99.5 ???F) Temporal -- -- -- -- 11/11/24 0000 109/67 38.9 ???C (102 ???F) Oral -- 22 96 % -- 11/10/24 2300 127/64 -- -- 95 25 100 % -- 11/10/24 2230 -- 39.8 ???C (103.6 ???F) Oral -- -- -- -- 11/10/24 2101 117/58 -- -- 83 (!) 33 -- -- 11/10/24 2100 117/58 -- -- 85 (!) 32 -- -- 11/10/24 2000 126/63 -- -- 83 (!) 34 99 % -- 11/10/24 1900 111/63 37.9 ???C (100.3 ???F) Tympanic 78 24 100 % -- 11/10/24 1600 111/65 -- -- 73 24 -- -- 11/10/24 1200 121/70 -- -- 76 16 93 % -- 11/10/24 1159 -- 37 ???C (98.6 ???F) Temporal -- -- -- -- 11/10/24 0816 -- 37.3 ???C (99.1 ???F) Temporal -- -- -- -- 11/10/24 0800 (!) 83/49 -- -- 81 (!) 28 98 % -- 11/10/24 0720 89/55 -- -- 79 (!) 28 99 % -- Constitutional: Patient in no acute distress; Neuro: alert and oriented to person place and time. Psych: Mood and affect normal. Skin: Normal Lungs: Respiratory effort normal Cardiovascular: Normal peripheral pulses Abdomen: Soft, non-tender, non-distended with no CVA, flank pain, hepatosplenomegaly or hernia. Lymphatics: no palpable lymphadenopathy Call catheter in place draining marc urine LABS: Results from last 7 days Lab Units 11/11/24 0320 11/10/24 0821 11/09/24 1840 WBC AUTO 10*3/uL 10.75* 10.26 11.80* HEMOGLOBIN g/dL 8.6* 9.3* 10.3* HEMATOCRIT % 26.3* 28.2* 32.7* PLATELETS AUTO 10*3/uL 152 159 195 Results from last 7 days Lab Units 11/11/24 0348 11/10/24 0821 11/09/24 1840 SODIUM mmol/L 135* 134* 137 POTASSIUM mmol/L 3.9 4.1 4.0 CHLORIDE mmol/L 106 106 107 CO2 mmol/L 24 24 20* BUN mg/dL 13 13 13 CREATININE mg/dL 1.15 1.12 1.09 CALCIUM mg/dL 8.4* 8.4* 9.0 No results found for: PSA Assessment and Plan Impression: Rigors/Hypotension following cysto, urethral dilation, left stent removal H/o urosepsis back in February Plan: N.p.o. for IR nephrostomy tube placement Monitor daily labs Continue to monitor urinary output Maintain Call catheter until closer to discharge Continue ICU care Kai Ames MD Urology Resident, PGY-3 By using the attestations below, the signing clinician agrees that I have read and verify that the documentation has been personally reviewed by me and ensure that the documentation accurately reflects the encounter. GC: I personally saw this patient on the day of the encounter, performed the benoit portion(s) of the service and participated in the management and confirm the resident's documentation. Please note there may be an additional personal documentation from me. Sumanth Shepherd MDSelect [facility]-2025 NoteUrology Daily Progress Note HISTORY OF PRESENT ILLNESS: The patient is a 74 y.o. male who presents with Nephrolithiasis who s/p cysto urethral dilation, L stent removal. AF, slightly hypotensive overnight Pain well controlled Denies N/V Some chills/shakes overnight Call catheter in place draining marc urine Physical Exam: This a 74 y.o. patient Patient Vitals for the past 24 hrs: BP Temp Temp src Pulse Resp SpO2 Height Weight 11/10/24 0546 -- -- -- -- -- -- -- 78.2 kg (172 lb 6.4 oz) 11/10/24 0401 (!) 101/47 36.4 ???C (97.5 ???F) Temporal 81 19 98 % -- -- 11/10/24 0229 96/58 -- -- 73 20 100 % -- -- 11/10/24 0100 (!) 85/47 -- -- 68 17 99 % -- -- 11/10/24 0000 100/52 36.8 ???C (98.3 ???F) Temporal 71 21 100 % -- -- 11/09/24 231 105/60 -- -- -- -- 100 % -- -- 11/09/242299 (!) 89/49 -- Oral 71 12 100 % -- -- 11/09/242199 (!) 101/40 -- -- 79 18 -- -- -- 11/09/242127 -- -- -- -- -- -- -- 78.6 kg (173 lb 4.5 oz) 11/09/242124 110/71 37 ???C (98.6 ???F) Oral 86 19 100 % -- -- 11/09/242121 -- 37 ???C (98.6 ???F) Oral 86 19 -- 1.524 m (5') -- 11/09/24 1945 137/66 -- -- 84 20 100 % -- -- 11/09/24 1925 123/65 -- -- 87 15 99 % -- -- 11/09/24 1910 116/73 -- -- 88 19 100 % -- -- 11/09/24 1855 125/69 -- -- 80 18 98 % -- -- 11/09/24 1840 133/67 36.5 ???C (97.7 ???F) Temporal 84 25 97 % -- -- 11/09/24 1835 135/75 -- -- 83 15 100 % -- -- 11/09/24 181 134/68 36 ???C (96.8 ???F) Temporal 93 23 99 % -- -- 11/09/24 1800 (!) 126/92 36 ???C (96.8 ???F) Temporal 98 19 91 % -- -- 11/09/24 1741 136/85 36 ???C (96.8 ???F) Temporal 86 14 96 % -- -- 11/09/24 1740 136/85 36 ???C (96.8 ???F) Temporal 87 15 95 % -- -- Constitutional: Patient in no acute distress; Neuro: alert and oriented to person place and time. Psych: Mood and affect normal. Skin: Normal Lungs: Respiratory effort normal Cardiovascular: Normal peripheral pulses Abdomen: Soft, non-tender, non-distended with no CVA, flank pain, hepatosplenomegaly or hernia. Lymphatics: no palpable lymphadenopathy Call catheter in place draining marc urine LABS: Results from last 7 days Lab Units 11/09/24 1840 WBC AUTO 10*3/uL 11.80* HEMOGLOBIN g/dL 10.3* HEMATOCRIT % 32.7* PLATELETS AUTO 10*3/uL 195 Results from last 7 days Lab Units 11/09/24 1840 SODIUM mmol/L 137 POTASSIUM mmol/L 4.0 CHLORIDE mmol/L 107 CO2 mmol/L 20* BUN mg/dL 13 CREATININE mg/dL 1.09 CALCIUM mg/dL 9.0 No results found for: PSA Assessment and Plan Impression: Rigors/Hypotension following cysto, urethral dilation, left stent removal H/o urosepsis back in February Plan: Regular diet Maintain call catheter for now, will discuss void trial if patient is being discharged today Follow up blood cx Monitor daily labs Monitor UOP Urology will continue to follow Rest of care per primary Kai Ames MD Urology Resident, PGY-3 By using the attestations below, the signing clinician agrees that I have read and verify that the documentation has been personally reviewed by me and ensure that the documentation accurately reflects the encounter. GC: I personally saw this patient on the day of the encounter, performed the benoit portion(s) of the service and participated in the management and confirm the resident's documentation. Please note there may be an additional personal documentation from me.[facility]09-20-2025 NoteCase was discussed with the RASHAUN on 11/09/2024. I agree with the history, physical, assessment, and plan of care. I discussed the findings and therapeutic plan. I agree with the documentation, except for any updates below. Sondra Ordonez MDUnMain Campus Medical Center09-20-2025 NoteDiabetes is unchanged. Diabetes management per protocol, hypoglycemia management, sliding scale. [facility]09-20-2025 NoteResume home medications Condition is stableUnMain Campus Medical Center09-20-2025 NoteCounseling regarding weight management was providedUnMain Campus Medical Center 11-10-2024 NoteResume home medicationUnMain Campus Medical Center 11-10-2024 NoteResume home medicationsUnMain Campus Medical Center 11-10-2024 NoteHe had left ureteroscopy with holmium laser lithotripsy. Patient was shivering after the procedure, lactate ordered, blood culture ordered. Patient condition improved afterwards, white blood cells 11.8 Patient received preoperative antibiotics. Will continue to monitorUnMain Campus Medical Center09-20-2025 NoteResume home medications.[facility]09-20-2025 NoteHospital Medicine History and Physical 11/10/2024 5:15 AM THE HOSPITALIST TEAM PREFERS TO USE [employer] FOR NON-URGENT COMMUNICATION 7AM-7PM. IF I DO NOT RESPOND WITHIN 20 MINUTES OR URGENT MATTERS, PLEASE CALL THROUGH THE COMPUTATIONAL SCIENCES PROFESSOR. FROM 7PM-7AM, PLEASE PAGE [phone](COVR). Chief Complaint left kidney stone. History of Present Illness Brian Mandel is an 74 y.o. male who came from home Patient with a past medical history of ACS, hypertension, CHF, COPD, type 2 diabetes, AAA, acute cystitis, history of CABG, status post TAVR, and sepsis who was recently diagnosed with a kidney stone on the left and had a left ureteral stent placed in February and he was diagnosed with urosepsis at the time due to a 1.56 cm left stone presents with chief complaint of a left kidney stone. The patient had a left ureteral stent placed at [facility] in February for acute kidney injury, urosepsis likely due to a 1.5 cm left ureteral stone. He had left flank pain. He had a repeat CT scan in September that demonstrated 9 mm left renal pelvic stone and a stent in good position. He had left ureteroscopy with holmium laser lithotripsy. Urine analysis is remarkable for turbid and red color with increased blood in urine, patient has a Call in place with red urine. Blood cultures are ordered and pending. Review of System and Physical Exam Temp: [36 ???C (96.8 ???F)-37 ???C (98.6 ???F)] 36.8 ???C (98.3 ???F) Heart Rate: [71-98] 81 Resp: [12-25] 19 BP: (89-137)/(40-92) 101/47 Physical Exam Constitutional: Appearance: Normal appearance. He is obese. HENT: Head: Normocephalic and atraumatic. Nose: Rhinorrhea present. No congestion. Cardiovascular: Rate and Rhythm: Normal rate and regular rhythm. Pulses: Normal pulses. Heart sounds: Normal heart sounds. Pulmonary: Effort: Pulmonary effort is normal. Breath sounds: Normal breath sounds. Abdominal: General: Bowel sounds are normal. Palpations: Abdomen is soft. Tenderness: There is right CVA tenderness and left CVA tenderness. Genitourinary: Comments: Call in place Musculoskeletal: General: Normal range of motion. Cervical back: Normal range of motion and neck supple. Skin: General: Skin is warm and dry. Capillary Refill: Capillary refill takes less than 2 seconds. Neurological: Mental Status: He is alert and oriented to person, place, and time. Psychiatric: Mood and Affect: Mood normal. Behavior: Behavior normal. Thought Content: Thought content normal. Judgment: Judgment normal. Review of Systems Constitutional: Positive for fatigue. HENT: Negative. Eyes: Negative. Respiratory: Negative. Cardiovascular: Negative. Gastrointestinal: Positive for abdominal pain. Endocrine: Negative. Genitourinary: Positive for dysuria and flank pain. Musculoskeletal: Positive for back pain. Negative for arthralgias, gait problem, joint swelling, myalgias, neck pain and neck stiffness. Skin: Negative. Allergic/Immunologic: Negative. Neurological: Negative. Hematological: Negative. Psychiatric/Behavioral: Negative. Assessment and Plan Assessment & Plan Nephrolithiasis He had left ureteroscopy with holmium laser lithotripsy. Patient was shivering after the procedure, lactate ordered, blood culture ordered. Patient condition improved afterwards, white blood cells 11.8 Patient received preoperative antibiotics. Will continue to monitor Anxiety disorder Resume home medications Benign essential hypertension Resume home medication Body mass index 40.0-44.9, adult ([facility]) Counseling regarding weight management was provided Chronic diastolic congestive heart failure ([facility]) Resume home medications Condition is stable COPD (chronic obstructive pulmonary disease) ([facility]) Resume home medications Condition is stable GERD with esophagitis Resume home medications. Type 2 diabetes mellitus with hyperglycemia, without long-term current use of insulin ([facility]) Diabetes is unchanged. Diabetes management per protocol, hypoglycemia management, sliding scale. VTE Prophylaxis: Contraindicated due to hematuria ----- Focus of this inpatient stay will remain on problems that need acute care setting for care. We will review available studies and will order additional labs, imaging and other studies as appropriate. As needed medicines are ordered as appropriate. VTE Prophylaxis will be ordered as appropriate. Please see above for management plan for individual hospital problems. Home medications are reviewed and will be continued as appropriate. Patient will be continued to be followed during this hospital stay by a member of [facility]. Past Medical History Medical History[1] Past Surgical History Surgical History[2] Social History Social History Socioeconomic History Marital status: Spouse name: Not on file Number of children: Not on file Years of education: N (more content not included)...[facility]09-19-2025 NotePatient: Brian Mandel Procedure Summary Date: 11/09/24 Room / Location: [facility] OPERATING ROOM 07 / [facility] Operating Room Anesthesia Start: 1623 Anesthesia Stop: 1744 Procedure: CYSTOSCOPYWITH URTHRAL DILATION (Left) Diagnosis: Nephrolithiasis (Nephrolithiasis [N20.0]) Surgeons: Tristan Abernathy MD Responsible Provider: Donaldo Stewart MD Anesthesia Type: general ASA Status: 4 Anesthesia Type: general Vitals Value Taken Time BP 134/68 11/09/24 18:12 Temp 36 ???C (96.8 ???F) 11/09/24 18:00 Pulse 93 11/09/24 18:14 Resp 23 11/09/24 18:14 SpO2 99 % 11/09/24 18:14 Vitals shown include unfiled device data. Anesthesia Post Evaluation Patient location during evaluation: PACU Patient participation: complete - patient participated Level of consciousness: awake Pain score: 1 Pain management: adequate Airway patency: patent Cardiovascular status: stable Respiratory status: acceptable Hydration status: balanced Patient is hemodynamically stable and is able to be discharged from PACU per anesthesia protocol. No notable events documented.[facility]09-19-2025 Note Patient: Brian Mandel Procedure Summary Date: 11/09/24 Room / Location: [facility] OPER[facility] 07 / [facility] Operating Room Anesthesia Start: 1622 Anesthesia Stop: Procedure: CYSTOSCOPYWITH URTHRAL DILATION (Left) Diagnosis: Nephrolithiasis (Nephrolithiasis [N20.0]) Surgeons: Tristan Abernathy MD Responsible Provider: Donaldo Stewart MD Anesthesia Type: general ASA Status: 4 Anesthesia Post Transport Note Transport to: PACU O2 Route: room air Patient Monitor: direct observation Transport: uneventful Patient condition is: stableUnMain Campus Medical Center09-19-2025 Note Patient: Brian Mandel Procedure Information Anesthesia Start Date/Time: 11/09/241622 Procedure: CYSTOSCOPY, WITH STENT INSERTION, RETRGRD PYELO, URETEROSCPY, HOLMIUM LASER LITHOTRIPSY, AND CALC BASKET EXTRACTION (Left) - C-ARM, HOLMIUM Location: [facility] OPERATING [facility]OM 07 / [facility] Operating Room Surgeons: Tristan Abernathy MD Relevant Problems Anesthesia (+) Obstructive sleep apnea syndrome Cardio (+) AAA (abdominal aortic aneurysm) (+) Benign essential hypertension (+) CHF exacerbation (CMS/HCC) (+) Chronic diastolic congestive heart failure ([facility]/HCC) (+) Congestive heart failure ([facility]) (+) Coronary arteriosclerosis (+) HTN (hypertension) (+) Old myocardial infarction (+) Severe aortic stenosis Endo (+) Type 2 diabetes mellitus ([facility]/HCC) (+) Type 2 diabetes mellitus with hyperglycemia, without long-term current use of insulin ([facility]) GI (+) Gastroesophageal reflux disease without esophagitis /Renal (+) Acute renal failure (+) Kidney stone (+) Nephrolithiasis Pulmonary (+) COPD (chronic obstructive pulmonary disease) ([facility]/HCC) (+) Community acquired pneumonia of left lower lobe of lung (+) Mucopurulent chronic bronchitis ([facility]) Clinical information reviewed: Tobacco Allergies Meds Med Hx Surg Hx Fam Hx Soc Hx Physical Exam Airway Mallampati: II TM distance: >3 FB Neck ROM: full Cardiovascular Rhythm: regular Rate: normal Dental (+) edentulous Pulmonary Breath sounds clear to auscultation Neurological Abdominal Anesthesia Plan ASA 4 general intravenous induction Anesthetic plan and risks discussed with patient. Use of blood products discussed with who consented to blood products. Plan discussed with CAA. Additional Equipment RequestsSelect Medical [facility]09-19-2025 Note Airway Date/Time: 11/09/2024 4:38 PM Reason: elective Airway not difficult General Information and Staff Patient location during procedure: OR Anesthesiologist: Donaldo Stewart MD Resident/TEACHER MUSIC/CAA: THERESA Ely Performed: resident/TEACHER MUSIC/THERESA Patient Condition Indications for airway management: anesthesia [...] approach: 1 Number of other approaches attempted: 0[facility] 10-31-2024 NoteChief complaint/HPI/Plan: The patient is a 74-year-old male who presents with a chief complaint of a left kidney stone. The patient had a left ureteral stent placed at [facility] in February for acute kidney injury, urosepsis likely due to a 1.5 cm left ureteral stone. He does endorse left flank pain. He had a repeat CT scan in September that demonstrated 9 mm left renal pelvic stone and a stent in good position. I discussed with him the risks associated with left ureteroscopy with holmium laser lithotripsy. Will arrange in the near future. I have personally reviewed the imaging and lab work relevant to the patient visit. Diagnosis: Nephrolithiasis Vitals: 06/27/24 1350 BP: 96/60 Pulse: 82 Temp: 36.8 ???C (98.2 ???F) Exam: Constitutional: Patient is in no acute distress Psychiatric: Normal affect HEENT: No head or neck abnormalities or jaundice Pulmonary: Patient is not laboring to breathe Neurologic: No obvious neurologic abnormalities Extremities: No deformity Cardiovascular: No obvious cyanosis of the extremities Integumentary: No obvious rash Review of systems: A 10 point review of systems was performed and was negative unless otherwise indicated Problem List Patient Active Problem List Diagnosis Acute coronary syndrome ([facility]) Anxiety disorder Atypical chest pain Bacteremia due to methicillin resistant Staphylococcus aureus Benign essential hypertension Body mass index 40.0-44.9, adult ([facility]) CHF exacerbation ([facility]) Chronic diastolic congestive heart failure ([facility]) Chronic respiratory failure with hypoxia ([facility]) Community acquired pneumonia of left lower lobe of lung COPD (chronic obstructive pulmonary disease) ([facility]) Coronary arteriosclerosis Dependence on supplemental oxygen Difficulty walking Dizziness Dyslipidemia Dyspnea Erectile dysfunction GERD with esophagitis HTN (hypertension) [employer] current use of inhaled steroid Anemia, unspecified Major depressive disorder Mixed hyperlipidemia Mucopurulent chronic bronchitis ([facility]) Muscle weakness (generalized) Obstructive sleep apnea syndrome Old myocardial infarction Other chronic pain Pleural effusion, left Postconcussion syndrome Psychophysiological insomnia Pure hypercholesterolemia Rotator cuff tear arthropathy of left shoulder Rotator cuff tear, non-traumatic, right Solitary pulmonary nodule Spondylosis of lumbosacral region without myelopathy or radiculopathy Tachycardia Type 2 diabetes mellitus with hyperglycemia, without long-term current use of insulin ([facility]) Weakness generalized AAA (abdominal aortic aneurysm) Acute cystitis Acute renal failure Age-related osteoporosis with current pathological fracture Congestive heart failure ([facility]) Electrolyte imbalance Fall Gastroesophageal reflux disease without esophagitis Gross hematuria History of myocardial infarction Hx of CABG S/P TAVR (transcatheter aortic valve replacement) Hypokalemia Hypomagnesemia Intractable back pain Iron deficiency anemia secondary to inadequate dietary iron intake Kidney stone Leukocytes in urine Megaloblastic anemia Morbid (severe) obesity due to excess calories ([facility]) Morbid obesity ([facility]) Pathological fracture of thoracic vertebra with delayed healing S/P PTCA (percutaneous transluminal coronary angioplasty) Sepsis with acute renal failure ([facility]) Severe aortic stenosis Shock ([facility]) Syncope Type 2 diabetes mellitus ([facility]) Urinary retention Vitamin D deficiency Anemia requiring transfusions Medical History No past medical history on file. Surgical History No past surgical history on file. Medications Ordered Prior to Encounter Current Outpatient Medications on File Prior to Visit Medication Sig Dispense Refill amitriptyline (Elavil) 25 mg tablet Use 1 tablet in the mouth or throat 1 (one) time each day. cholecalciferol, vitamin D3, (VITAMIN D3 ORAL) Take by mouth. FLUoxetine (PROzac) 20 mg capsule Take 1 capsule every day by oral route for 90 days. hydrOXYzine HCL (Atarax) 50 mg tablet Take 1-2 tablets by mouth if needed at bedtime. metFORMIN XR (Glucophage-XR) 750 mg 24 hr tablet Take 750 mg by mouth. PARoxetine (Paxil) 10 mg tablet Take 10 mg by mouth in the morning. pioglitazone (Actos) 30 mg tablet Take 30 mg by mouth in the morning. simvastatin (Zocor) 40 mg tablet Take 1 tablet every day by oral route for 90 days. ticagrelor (Brilinta) 90 mg tablet Take by mouth twice a day. acetaminophen (Tylenol) 325 mg tablet Take 650 mg by mouth every 8 (eight) hours if needed. albuterol 2.5 mg /3 mL (0.083 %) nebulizer solution Inhale 2.5 mg every 6 (six) hours if needed. aspirin 81 mg EC tablet Take 1 tablet by mouth in the morning. benzonatate (Tessalon) 200 mg capsule Take 200 mg by mouth if needed in the morning, at noon, and at bedtime. folic acid (Folvite) 1 mg tablet T (more content not included)...[facility]05-07-2025 NoteChief complaint/HPI/Plan: The patient is a 74-year-old male who presents with a chief complaint of a left kidney stone. The patient had a left ureteral stent placed at [facility] in February for acute kidney injury, urosepsis likely due to a 1.5 cm left ureteral stone. He does endorse left flank pain. He has not had a CT since it was initially placed in February. Will repeat his CT scan. I also discussed with him left ureteroscopy with holmium laser lithotripsy. We will see him back after the CT. I have personally reviewed the imaging and lab work relevant to the patient visit. Diagnosis: Nephrolithiasis Vitals: 06/27/24 1350 BP: 96/60 Pulse: 82 Temp: 36.8 ???C (98.2 ???F) Exam: Constitutional: Patient is in no acute distress Psychiatric: Normal affect HEENT: No head or neck abnormalities or jaundice Pulmonary: Patient is not laboring to breathe Neurologic: No obvious neurologic abnormalities Extremities: No deformity Cardiovascular: No obvious cyanosis of the extremities Integumentary: No obvious rash Review of systems: A 10 point review of systems was performed and was negative unless otherwise indicated Patient Active Problem List Diagnosis Acute coronary syndrome ([facility]) Anxiety disorder Atypical chest pain Bacteremia due to methicillin resistant Staphylococcus aureus Benign essential hypertension Body mass index 40.0-44.9, adult ([facility]) CHF exacerbation ([facility]) Chronic diastolic congestive heart failure ([facility]) Chronic respiratory failure with hypoxia ([facility]) Community acquired pneumonia of left lower lobe of lung COPD (chronic obstructive pulmonary disease) ([facility]) Coronary arteriosclerosis Dependence on supplemental oxygen Difficulty walking Dizziness Dyslipidemia Dyspnea Erectile dysfunction GERD with esophagitis HTN (hypertension) retirement current use of inhaled steroid Anemia, unspecified Major depressive disorder Mixed hyperlipidemia Mucopurulent chronic bronchitis ([facility]) Muscle weakness (generalized) Obstructive sleep apnea syndrome Old myocardial infarction Other chronic pain Pleural effusion, left Postconcussion syndrome Psychophysiological insomnia Pure hypercholesterolemia Rotator cuff tear arthropathy of left shoulder Rotator cuff tear, non-traumatic, right Solitary pulmonary nodule Spondylosis of lumbosacral region without myelopathy or radiculopathy Tachycardia Type 2 diabetes mellitus with hyperglycemia, without long-term current use of insulin ([facility]) Weakness generalized AAA (abdominal aortic aneurysm) Acute cystitis Acute renal failure Age-related osteoporosis with current pathological fracture Congestive heart failure ([facility]) Electrolyte imbalance Fall Gastroesophageal reflux disease without esophagitis Gross hematuria History of myocardial infarction Hx of CABG S/P TAVR (transcatheter aortic valve replacement) Hypokalemia Hypomagnesemia Intractable back pain Iron deficiency anemia secondary to inadequate dietary iron intake Kidney stone Leukocytes in urine Megaloblastic anemia Morbid (severe) obesity due to excess calories ([facility]/HCC) Morbid obesity ([facility]) Pathological fracture of thoracic vertebra with delayed healing S/P PTCA (percutaneous transluminal coronary angioplasty) Sepsis with acute renal failure ([facility]) Severe aortic stenosis Shock ([facility]) Syncope Type 2 diabetes mellitus (CMS/HCC) Urinary retention Vitamin D deficiency Anemia requiring transfusions No past medical history on file. No past surgical history on file. Current Outpatient Medications on File Prior to Visit Medication Sig Dispense Refill amitriptyline (Elavil) 25 mg tablet Use 1 tablet in the mouth or throat 1 (one) time each day. cholecalciferol, vitamin D3, (VITAMIN D3 ORAL) Take by mouth. FLUoxetine (PROzac) 20 mg capsule Take 1 capsule every day by oral route for 90 days. hydrOXYzine HCL (Atarax) 50 mg tablet Take 1-2 tablets by mouth if needed at bedtime. metFORMIN XR (Glucophage-XR) 750 mg 24 hr tablet Take 750 mg by mouth. PARoxetine (Paxil) 10 mg tablet Take 10 mg by mouth in the morning. pioglitazone (Actos) 30 mg tablet Take 30 mg by mouth in the morning. simvastatin (Zocor) 40 mg tablet Take 1 tablet every day by oral route for 90 days. ticagrelor (Brilinta) 90 mg tablet Take by mouth twice a day. acetaminophen (Tylenol) 325 mg tablet Take 650 mg by mouth every 8 (eight) hours if needed. albuterol 2.5 mg /3 mL (0.083 %) nebulizer solution Inhale 2.5 mg every 6 (six) hours if needed. aspirin 81 mg EC tablet Take 1 tablet by mouth in the morning. benzonatate (Tessalon) 200 mg capsule Take 200 mg by mouth if needed in the morning, at noon, and at bedtime. folic acid (Folvite) 1 mg tablet Take 1 mg by mouth in the morning. HYDROcodone-acetaminophen (Girard) 5-325 mg tablet Take 1 tablet by mouth every 6 (six) hours if ne (more content not included)...[facility]03-19-2025 Miscellaneous Notes* Telephone Encounter - Harjinder Burden MD - 05/09/2024 10:09 AM EDT May As you know yesterday the patient called the office and threatened to have me killed if I did not remove his stent. I have never met him. The [employer] police were called and a report was filed. They subsequently spoke to the patient. He should receive a discharge letter from our group stating that he needs to get his stent removed but will need to find another urologist to do so [facility] Telephone encounter Note* Telephone Encounter - Harjinder Burden MD - 05/09/2024 10:09 AM EDT May As you know yesterday the patient called the office and threatened to have me killed if I did not remove his stent. I have never met him. The [place] police were called and a report was filed. They subsequently spoke to the patient. He should receive a discharge letter from our group stating that he needs to get his stent removed but will need to find another urologist to do so [facility]2025 Miscellaneous Notes* Telephone Encounter - Ayan Quijano - 05/08/2024 1:51 PM EDT PT calls after cancelling appointment due to being hospitalized at [facility]. PT states there is no reason that the provider cannot come to see him and remove his stent now. PT advised that Provider is in clinic and cannot leave clinic to go to the hospital at this time. PT states that if provider will not come to the hospital now that he will send his mercenaries to drag him [facility] and if he refuses they will shoot him. I told PT that there was no need to be threatening and violent and that we would get a message to the provider, he again told me that the provider better come take the stent out or he would be killed. Management advised immediately. documented in this encounterOhio[facility]2025 Telephone encounter Note* Telephone Encounter - Ayan Quijano - 05/08/2024 1:51 PM EDT PT calls after cancelling appointment due to being hospitalized at [facility]. PT states there is no reason that the provider cannot come to see him and remove his stent now. PT advised that Provider is in clinic and cannot leave clinic to go to the hospital at this time. PT states that if provider will not come to the hospital now that he will send his mercenaries to drag him [facility] and if he refuses they will shoot him. I told PT that there was no need to be threatening and violent and that we would get a message to the provider, he again told me that the provider better come take the stent out or he would be killed. Management advised immediately. [facility] Miscellaneous Notes* Telephone Encounter - María Jim - 05/08/2024 11:08 AM EDT PLEASE CALL HENNA WITH DR FERMIN @ [facility] [phone] PT IN ROOM 213 BED 2 DX: KIDNEY STONES THANK YOU * Telephone Encounter - Henna Beasley MD - 05/08/2024 11:[address] Burden is strategy planning consultant and in [place], let me know if you need me for anything * Telephone Encounter - Harjinder Burden MD - 05/08/2024 11:08 AM EDT Just an VICKEY [place] strategy planning consultant. * Telephone Encounter - Ivan Slaughter CMA - 05/08/2024 11:08 AM EDT Patient is calling in very upset wanting to know why the provider can't just come across the [address]to the hospital and remove his stent we dont care about his pain. He was screaming in my ear telling me that there is no reason that the doctor can't do his job he knows he is across the street because he was suppose to be seen and he just needs this stent out.I advised him I can't understand him while he is screaming and I would send a note to the strategy planning consultant doctor to please see him in the hospitaland I am going to hang up and I hung up. Patient kept repeating the fucking doctor better come takethis stent out he better get over here, he kept asking what our schedules were when we get off, I said our schedules are all different. He did not want to hear anything I had to say. When I answered the phone he assumed I knew who he was. [facility] [employer] [id number] Telephone encounter Note* Telephone Encounter - María Jim - 05/08/2024 11:08 AM EDT PLEASE CALL HENNA WITH DR FERMIN @ [facility] [phone] PT IN ROOM 213 BED 2 DX: KIDNEY STONES THANK YOU [facility] [employer] [id number] Telephone encounter Note* Telephone Encounter - Henna Beasley MD - 05/08/2024 11:[address] Burden is strategy planning consultant and in [place], let me know if you need me for anything [facility] [email or web address] Work Phone: [phone] Telephone encounter Note* Telephone Encounter - Harjinder Burden MD - 05/08/2024 11:08 AM EDT Just an FYI - Rubén strategy planning consultant. [facility]2025 Telephone encounter Note* Telephone Encounter - Ivan Slaughter CMA - 05/08/2024 11:08 AM EDT Patient is calling in very upset wanting to know why the provider can't just come across the streetto the hospital and remove his stent we dont care about his pain. He was screaming in my ear telling me that there is no reason that the doctor can't do his job he knows he is across the street because he was suppose to be seen and he just needs this stent out.I advised him I can't understand him while he is screaming and I would send a note to the strategy planning consultant doctor to please see him in the hospitaland I am going to hang up and I hung up. Patient kept repeating the fucking doctor better come takethis stent out he better get over here, he kept asking what our schedules were when we get off, I said our schedules are all different. He did not want to hear anything I had to say. When I answered the phone he assumed I knew who he was. [facility]01-26-2025 Miscellaneous Notes* Discharge Planning Note - Yina Khanna - 2024 1:38 PM EST DISCHARGE PLANNING NOTE CRF sent to [facility] ([place]: P# ; F# ); * Discharge Planning Note - NICHOLAS Lane - 2024 1:08 PM EST Images from the original note were not included. DISCHARGE PLANNING NOTE Discharge to home today. Task to [facility] to send CRF to [facility]. Services Requested: Services Requested Patient expects to be discharged to:: home Discharge Disposition: Home with home health services Facility/Service Name: [facility] Facility/Service Fax number: [phone] Facility/Service Does the patient need discharge transportation arranged?: No Patient choice offered: Yes List Provided: Yes [facility] List Provided: Home Care Patient Goals: Patient/Caregiver Goals Patient/Caregiver Goals: Home No Needs Goals: Goals <enter goal here> (pt-stated) Evaluation of progress towards goal: Current Discharge Plan; home alone, self care. Tasked for new PCP appt Home with self care (pt-stated) Evaluation of progress towards goal: Home with self care. - NICHOLAS Lane 03/18/24 1:08 PM * Discharge Planning Note - NICHOLAS Lane - 2024 12:35 PM EST DISCHARGE PLANNING NOTE [facility] yet to respond to the referral. Referral to [facility] which is second choice and they can accept. Need to send orders when complete. - NICHOLAS Lane 03/18/24 12:36 PM * Discharge Planning Note - NICHOLAS Lane - 2024 11:00 AM EST DISCHARGE PLANNING NOTE Brian met with pt and explained role. Pt pleasant, interacted well with investigative writer. Sw discussed dischargeplans and therapy recommendation for a home therapy and the provider wanting him to have home nursing and therapy. Pt is agreeable. Options reviewed. [facility] choice and [facility] as second choice. [facility] to [facility] Await acceptance, if they decline will send to [facility]. - NICHOLAS Lane 03/18/24 11:01 AM * Plan of Care - Micky Anderson RN - 2024 9:34 AM EST Problem: Pain Goal: Patient goal is pain score less than 4, able to rest, and participant in treatment plan as appropriate Description: INTERVENTIONS: 1. Encourage patient or legal customer account representative to report early pain and ask for pain medicine when needed 2. Assess pain using appropriate pain scale and include the scale used when documenting 3. Administer analgesics based on type and severity of pain and evaluate response within appropriate time frame 4. Implement non-pharmacological measures as appropriate and evaluate response 5. Consider cultural and social influences on pain and pain management 6. Notify LIP if interventions ineffective or patient reports new pain 7. Monitor vital signs including pulse ox, end-tidal CO2 based on pain intervention 8. Reassess pain per policy 9. Teach patient or legal customer account representative interventions for comforting Outcome: Progressing Note: Evaluation of progress towards goal: Patient is able to call out for medications appropriately when in pain. Problem: Safety Goal: Patient will be injury free during hospitalization Description: INTERVENTIONS: 1. Assess patient's risk for falls and implement fall prevention plan of care per policy 2. Provide and maintain a safe environment 3. Proper use of double Identifiers 4. Medication administration using the 5 rights 5. Hand hygiene 6. Specimens are labeled at the bedside 7. Instruct patient/ patient customer account representative about use of safety devices 8. Include patient/ patient customer account representative in decisions related to safety Outcome: Progressing Note: Evaluation of progress towards goal: Patient has remained injury free for the duration of their hospitalization. Assistive devices in place such as the maxi katheryn and repositioning sling. Bed remains in the lowest position with all personal items within reach. 2/4 side rails up. Call light within reach. Problem: Infection Goal: Absence of infection during hospitalization Description: INTERVENTIONS 1. Assess and monitor for signs and symptoms of infection. 2. Monitor lab/diagnostic results. 3. Monitor all insertion sites i.e., indwelling lines, tubes and drains. 4. Monitor endotracheal (as able) and nasal secretions for changes in amount and color. 5. Administer medications as ordered. 6. Instruct and encourage patient and family to use good hand hygiene technique. 7. Identify and instruct patient/patient customer account representative in use of appropriate isolation precautionsfor identified infection/symptoms. 8. Provide and discuss with patient/patient customer account representative on educational MDRO sheet. 9. Encourage and monitor nutritional status daily and consult court monitor if indicated. 10. Implement neutropenic guidelines as needed. Outcome: Progressing Note: Evaluation of progress towards goal: Patient remains afebrile at this time. Problem: Knowledge Deficit Goal: Patient/patient customer account representative demonstrates understanding of disease process, treatment plan,medications, and discharge instructions Description: INTERVENTIONS 1. Complete learning assessment and assess knowledge base 2. Provide teaching at level of understanding 3. Provide teaching via preferred learning method(s) Outcome: Progressing Note: Evaluation of progress towards goal: Patient educated with some evidence of learning. * Plan of Care - Vangie Dorantes RN - 03/17/2024 7:39 PM EST Problem: Pain Goal: Patient goal is pain score less than 4, able to rest, and participant in treatment plan as appropriate Description: INTERVENTIONS: 1. Encourage patient or legal customer account representative to report early pain and ask for pain medicine when needed 2. Assess pain using appropriate pain scale and include the scale used when documenting 3. Administer analgesics based on type and severity of pain and evaluate response within appropriate time frame 4. Implement non-pharmacological measures as appropriate and evaluate response 5. Consider cultural and social influences on pain and pain management 6. Notify LIP if interventions ineffective or patient reports new pain 7. Monitor vital signs including pulse ox, end-tidal CO2 based on pain intervention 8. Reassess pain per policy 9. Teach patient or legal customer account representative interventions for comforting Outcome: Progressing Note: Evaluation of progress towards goal: patient able to verbalize pain on 0- 10 pain scale. See MAR Problem: Safety Goal: Patient will be injury free during hospitalization Description: INTERVENTIONS: 1. Assess patient's risk for falls and implement fall prevention plan of care per policy 2. Provide and maintain a safe environment 3. Proper use of double Identifiers 4. Medication administration using the 5 rights 5. Hand hygiene 6. Specimens are labeled at the bedside 7. Instruct patient/ patient customer account representative about use of safety devices 8. Include patient/ patient customer account representative in decisions related to safety Outcome: Progressing Note: Evaluation of progress towards goal: patient bed locked in lowest position, items in reach, room assessed for hazards, patient needs assessed Problem: Infection Goal: Absence of infection during hospitalization Description: INTERVENTIONS 1. Assess and monitor for signs and symptoms of infection. 2. Monitor lab/diagnostic results. 3. Monitor all insertion sites i.e., indwelling lines, tubes and drains. 4. Monitor endotracheal (as able) and nasal secretions for changes in amount and color. 5. Administer medications as ordered. 6. Instruct and encourage patient and family to use good hand hygiene technique. 7. Identify and instruct patient/patient customer account representative in use of appropriate isolation precautionsfor identified infection/symptoms. 8. Provide and discuss with patient/patient customer account representative on educational MDRO sheet. 9. Encourage and monitor nutritional status daily and consult court monitor if indicated. 10. Implement neutropenic guidelines as needed. Outcome: Progressing Note: Evaluation of progress towards goal: patient vitals and labs monitored, standard precautions used Problem: Knowledge Deficit Goal: Patient/patient customer account representative demonstrates understanding of disease process, treatment plan,medications, and discharge instructions Description: INTERVENTIONS 1. Complete learning assessment and assess knowledge base 2. Provide teaching at level of understanding 3. Provide teaching via preferred learning method(s) Outcome: Progressing Note: Evaluation of progress towards goal: patient able to verbalize understanding of care and treatment plan. Education reinforced when needed Problem: Discharge Planning Goal: Discharge to post-acute care, other facility, or home with appropriate resources Description: Patient's goal is: home INTERVENTIONS 1. Conduct assessment to determine patient/family and health care team treatment goals, and need for post-acute services based on payer coverage, community resources, and patient preferences, and barriers to discharge 2. Coordinate with Social work, Care Navigation, and Utilization Review to arrange appropriate level of services according to patient's needs based on patient preference and payer coverage in collaboration with the physician and health care team 3. Address psychosocial, clinical, and financial barriers to discharge as identified in assessment in conjunction with the patient/family and health care team 4. Consult appropriate ancillary services (i.e.. PT/OT/ST, etc) as needed 5. Communicate with and update the patient/family, physician, and health care team regarding progress on the discharge plan 6. Identify discharge learning needs (meds, wound care, etc). 7. Arrange for needed discharge transportation as appropriate Outcome: Progressing Note: Evaluation of progress towards goal: d/c pending home Problem: Glucose Imbalance Goal: Clinical indication of glucose balance is achieved Description: Patient's goal is: glucose balance maintained INTERVENTIONS 1. Monitor blood glucose levels as ordered 2. Administer medications as ordered 3. Notify physician of ineffective treatment plan Outcome: Progressing Note: Evaluation of progress towards goal: glucose balance monitored per order Problem: Moderate - High Risk Fall Score Description: Bell Fall Score of =/> 25 or indicated by [facility] Assessment Goal: Patient should be free from fall Description: Interventions: 1. [place] to environment 2. Hourly rounds addressing the 4 P's (Pain, Positioning, Possessions, Potty) 3. Clear area of hazards (spills, clutter, electrical cords, unnecessary equipment) 4. Place equipment (bed & TV controls, call light, phone, urinal) within reach 5. Encourage patient to wear glasses and hearing aides as appropriate 6. Maintain bed in lowest position 7. Lock wheels on bed/wheelchair 8. Provide adequate lighting, including night light 9. Assess need for additional bedding, food/fluids, pain med's prior to sleep/routinely 10. Provide gripper slippers or personal non-skid footwear 11. Teach patient and patient customer account representative to maintain environment for safety and engage in all aspects of fall prevention program 12. Remind patient to call for help before getting out of bed 13. Initiate bed/chair/exit alarms supportive devices as appropriate, (chair wedge, no-skid floor mat, raised edge mattress, hip protectors) 14. Locate patient bed assignment for optimal visualization 15. Evaluate and identify Safe Patient Handling Equipment needs 16. Provide supervision when out of bed or chair 17. Utilize gait belt as needed to assist with ambulation 18. Place adaptive equipment (cane, walker) within reach 19. Request patient customer account representative bring adaptive equipment/mobility aids from home or obtain and provide as needed 20. Consult pharmacy regarding effects of med's affecting mobility, cognition, and alternatives 21. Obtain physician order for PT if risk factors associated with mobility are present 22. Obtain physician order for OT as appropriate 23. Utilize diversional activities 24. Educate patient and patient customer account representative how to maintain a safe environment during visitationtimes (notify nurse prior to leaving bedside) 25. Consider appropriateness of medical or non-bilingual medical assistant 26. Set up voiding schedule as appropriate (every 2 hours) Outcome: Progressing Note: Evaluation of progress towards goal: patient bed locked in lowest position, items in reach, room assessed for hazards, patient needs assessed Problem: Potential for Compromised Skin Integrity Goal: Skin integrity is maintained or improved Description: Patient's goal is: skin integrity maintained INTERVENTIONS 1. Perform initial skin assessment on admission and as needed 2. Turn patient every 2 hours and PRN 3. Relieve pressure to bony prominences 4. Avoid shearing 5. Keep skin clean and dry 6. Alternate a full bath with partial baths for elderly 7. Apply lotion/moisturizer on skin 8. Monitor patient's hygiene practices 9. Float heels 10. Collaborate with interdisciplinary team and initiate plans and interventions as needed Outcome: Progressing Note: Evaluation of progress towards goal: skin integrity maintained Goal: Patient's nutritional intake is adequate Description: Patient's goal is: tolerate intake INTERVENTIONS 1. Assess and monitor food intake and supplements, patient food preferences, nausea, vomiting, labs, oral cavity (gums, teeth, tongue, mucosa), proper denture fit, and cultural beliefs 2. Monitor for signs of hypoglycemia and hyperglycemia 3. Collaborate with interdisciplinary team and initiate plan and interventions as ordered 4. Monitor patient's weight 5. Assist patient with meals/food selection 6. Assist patient with eating 7. Allow adequate time for meals 8. Provide pleasant environment during mealtime 9. Increase social contact during mealtimes 10. Plan activities to conserve energy 11. Encourage/perform oral hygiene as appropriate 12. Encourage patient to take dietary supplement as ordered 13. Collaborate with clinical court monitor 14. Include patient/ patient's customer account representative in decisions related to nutrition Outcome: Progressing Note: Evaluation of progress towards goal: nutritional intake adequate * PT/OT/RESEARCH TEST ENGINE OPERATOR - Davon Lama PT - 03/17/2024 2:03 PM EST Physical Therapy Treatment Discharge Recommendations PT Recommendations: Home Home Recommendations: Intermittent caregiver support for: (for IADLs) Post Discharge Therapy Recommendations: Home Physical Therapy 6 Clicks: Basic Mobility Turning from your back to your side while in a flat bed without using bed rails?: None Moving from lying on your back to sitting on side of flat bed without using bed rails?: A little Moving to and from bed to a chair (including w/c)?: A little Standing up from a chair using your arms (e.g. w/c or bedside chair)?: A little To walk in hospital room?: A little Climbing 3-5 steps with a railing?: A little Scoring 6 Clicks: Basic Mobility Raw Score: 19 CMS G Code Modifier: CJ Therapy Plan Need for skilled Physical Therapy to address deficits in functional mobility due to a status decline resulting from deconditioning and CRISTINE Pt is now s/p T12 kyphoplasty 03/[address] Dumont PT Treatment/Interventions: Functional transfer training, ADL retraining, LE strengthening/ROM, Endurance training, Patient/family training, Equipment eval/education, Balance, Bed mobility, Gait training, Functional activities PT Frequency: 4-5days/week PT Duration: length of stay Patient Response to Treatment: Progressing toward goals Assessment Patient Assessment Therapy Problem List: Decreased balance, Decreased endurance, Decreased mobility, Decreased self-care trans, Decreased LE strength Patient Response to Treatment: Progressing toward goals Mood/Affect: Appropriate for circumstances Rehab Prognosis: Good, With continued PT status post acute discharge Visit RN Communication: Yes Medical Record Reviewed: Yes PT Type of Visit: Treatment Precautions Activity: early mobility, pass Equipment: gait belt, RW Telemetry/Lawn Mower Operator: Yes Oxygen Used: 3L Other: fall risk, s/p kyphoplasty T12 on 03/16 Subjective Physical Therapy Comments: hyperverbose, inappropriate comments frequently Pain Assessment Pain Assessment: No/denies pain Hearing / Speech / Vision Hearing: Hard of hearing/hearing concerns Speech: Within Functional Limits Current Vision: Wears glasses only for reading Cognition Overall Cognitive Status: Exceptions to Within Functional Limits, Within Functional Limits Orientation Level: Oriented X4 Other: 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 owning 100 diamonds, various gemstones and solid gold watches Bed Mobility Supine to Sit: Stand by assist Sit to Supine: (not tested) Other: pt up in chair with call lgiht in reach after treatment Transfers Sit to Stand: Standby assist Stand to Sit: Standby assist Gait Base of Support: Within Functional Limits Pattern: Decreased ramin Gait Assistance: Contact guard assist Assistive Device: Rolling walker Gait Distance: 200 feet 2 Turns: Yes Other: no loss of balance, one standing rest break at end of hallway Balance Balance Evaluation: Exceptions to Functional Limits Sitting Balance: Static: Good Sitting Balance: Dynamic: Good Standing Balance: Static: Good Standing Balance: Dynamic: Fair Other: with UE support Activity Tolerance Endurance: Tolerates 30 minutes activity with rest breaks Other: pt stood x 5 minutes at sink for ADL with good tolerance and standby assist for pt safety Plan Physical Therapy Care Plan Physical Therapy Care Plan (Active) Template: PT - Physical Therapy Problem: Activity Tolerance Dates: Start: 03/13/24 Disciplines: PT Goal: Tolerate > 30 minutes of activity WITH rest breaks Dates: Start: 03/13/24 Expected End: 04/02/24 Description: Goal Description: Patient to perform functional range / strength exercises to improve functional strength, balance and activity tolerance for improved independence and safety with mobility. Disciplines: PT Outcomes Date/Time User Outcome 03/17/24 1353 Davon Lama, PT Progressing Goal Note filed on 03/17/24 135 by Davon Lama, PT Evaluation of progress towards goal: Problem: Bed Mobility Dates: Start: 03/13/24 Disciplines: PT Goal: Patient will perform bed mobility with Modified Giles Dates: Start: 03/13/24 Expected End: 04/02/24 Description: Goal Description: Disciplines: PT Outcomes Date/Time User Outcome 03/17/24 1353 Davon Lama, PT Progressing Goal Note filed on 03/17/24 1353 by Davon Lama, PT Evaluation of progress towards goal: Problem: Gait Dates: Start: 03/13/24 Disciplines: PT Goal: Patient will perform gait with Contact Guard Dates: Start: 03/13/24 Expected End: 04/02/24 Description: With__RW__,__250__feet Goal Description: Disciplines: PT Outcomes Date/Time User Outcome 03/17/24 1353 Daovn Lama, PT Progressing Goal Note filed on 03/17/24 1353 by Davon Lama, PT Evaluation of progress towards goal: Problem: Standing Balance Dates: Start: 03/13/24 Disciplines: PT Goal: Improve balance to good Dates: Start: 03/13/24 Expected End: 04/02/24 Description: Static Dynamic Disciplines: PT Outcomes Date/Time User Outcome 03/17/24 1353 Davon Lama, PT Progressing Goal Note filed on 03/17/24 1353 by Davon Lama, PT Evaluation of progress towards goal: Problem: Transfers Dates: Start: 03/13/24 Disciplines: PT Goal: Patient will perform transfers with Contact Guard Dates: Start: 03/13/24 Expected End: 04/02/24 Description: Goal Description: Patient to perform mobility with good safety awareness. Disciplines: PT Outcomes Date/Time User Outcome 03/17/24 [id number] Davon Lama PT Progressing Goal Note filed on 03/17/24 9963 by Davon Lama PT Evaluation of progress towards goal: Physical Therapy Care Plan (Resolved) There are no resolved problems. Principal Problem: Acute renal failure (ARF) ([facility]) Active Problems: Chronic diastolic congestive heart failure ([facility]) 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 Major depressive disorder History of myocardial infarction Spondylosis of lumbosacral region without myelopathy or radiculopathy Gross hematuria Staghorn calculus Pathological fracture of thoracic vertebra with delayed healing Intractable back pain Vitamin D deficiency Age-related osteoporosis with current pathological fracture * PT/OT/RESEARCH TEST ENGINE OPERATOR - Marilin Lindo OTR/L - 03/17/2024 1:10 PM EST Occupational Therapy Re-Evaluation Discharge Recommendations OT Recommendations : Home Home Recommendations: Intermittent caregiver support for: (IADLs) Post Discharge Therapy Recommendations: Home Occupational Therapy Forestry Engineer Support for-: ADL Deficits Therapy Plan Need for skilled Occupational Therapy to address deficits in ADL independence and functional mobility due to a status decline resulting from acute renal failure. 03/08: Pt presented from OSH d/t nausea, vomiting, diarrhea, weakness, and syncopal event CT A/P: nonobstructive bilateral renal stones 03/09: S/p cystoscopy- ureteral stent placed 03/13: OT victor hugo, rec home 03/16: S/p T12 kyphoplasty d/t known T12 compression fx from 12/14 Dx: UTI, septic shock, anemia, CRISTINE 6 Clicks: Daily Activity Putting on and taking off regular lower body clothing?: A little Bathing (including washing, rinsing, drying)?: A little Toileting, which includes using toilet, bedpan or urinal?: A little Putting on and taking off regular upper body clothing?: A little Taking care of personal grooming such as brushing teeth?: A little Eating meals?: None Scoring Daily Activity Raw Score: 19 [facility] G Code Modifier: CK Past Medical History: Diagnosis Date Acute coronary syndrome [place] Anxiety disorder Chronic back pain Chronic obstructive asthma with exacerbation [place] COPD (chronic obstructive pulmonary disease) [place] Diabetes mellitus type 2, controlled ([facility] Essential hypertension Folate deficiency anemia Heart failure [place] Hypotension 11/22/2023 Megaloblastic anemia VT (myocardial infarction) [place] 06/2023 Muscle weakness (generalized) Myocardial infarct [place] Obesity Obstructive sleep apnea SARAH (obstructive sleep apnea) Pancytopenia ([facility] Presence of coronary artery bypass graft stent Shock ([facility]) 10/05/2023 Supplemental oxygen dependent Past Surgical History: Procedure Laterality Date CARDIAC SURGERY X2 CYSTOSCOPY INSERTION STENT URETER LT Left 03/09/2024 Performed by Henna Beasley MD at [facility] Transcutaneous aortic valve replacement/Transfemoral/Carpenter N/A 11/25/2023 Performed by Henrietta Arias MD at [facility] CARDIAC CATH LABS OT Treatment/Interventions: ADL retraining, Functional transfer training, UE strengthening/ROM, Endurance training, Patient/family training, Balance, Bed mobility, Compensatory technique education, Functional activities, Cognitive reorientation, Equipment eval/education OT Frequency: 4-5days/week OT Duration: LOS Assessment Patient Assessment Therapy Problem List: Decreased ADL status, Decreased balance, Decreased endurance, Decreased high-level ADLs, Decreased safe judgement during ADL, Decreased mobility, Decreased cognition, Decreased UE strength Patient Response to Treatment: Progressing toward goals Mood/Affect: Appropriate for circumstances Rehab Prognosis: Good, With continued OT status post acute discharge Visit RN Communication: Yes Medical Record Reviewed: Yes OT Type of Visit: Re-Evaluation Precautions Activity: Early mobility-pass, okay per RN Equipment: Gait belt, RW Telemetry/Lawn Mower Operator: Yes Oxygen Used: 3L nc Other: Fall risk, spinal precautions Pain Assessment Pain Assessment: No/denies pain Home Living Other : See OT eval 03/13 Prior Function Other: See OT eval 03/13 ADL / IADL Where Assessed: Standing at sink, Chair Grooming Assistance: Standby assist Footwear Assistance: Standby assist Other: Pt stood at sink to complete oral hygiene, wash face, and comb hair with SBA after setup. Ptable to adjust B socks while in chair with cues for figure- four technique. Home Management - IADL Other: Pt stood at sink to complete oral hygiene, wash face, and comb hair with SBA after setup. Ptable to adjust B socks while in chair with cues for figure- four technique. Cognition Overall Cognitive Status: Exceptions to Within Functional Limits Arousal/Alertness: Appropriate responses to stimuli Attention Span: Difficulty attending to directions, Difficulty dividing attention Memory: Decreased immediate memory Following Commands: Follows one step commands with increased time, Follows one step commands with repetition Safety Judgment: Decreased awareness of need for assistance, Decreased awareness of need for safety Awareness of Errors: Decreased awareness of errors Insight of Deficits: Decreased awareness of deficits Problem Solving: Reduced Bed Mobility Rolling: Stand by assist Supine to Sit: Stand by assist Sit to Supine: Unable to assess Other: Pt in bed upon entrance, completed sup to sit SBA with flat HOB, no bed rail, and cues for log roll technique. Pt in chair upon exit, call light within reach and all needs met. Transfers Sit to Stand: Standby assist Stand to Sit: Standby assist Other: cues for safety Gait Gait Assistance: Contact guard assist Assistive Device: Rolling walker Gait Distance: 10' + 200' Limiting Factors to Gait: Fatigue, Weakness Balance Sitting Balance: Static: Good Sitting Balance: Dynamic: Good Standing Balance: Static: Good (Good-) Standing Balance: Dynamic: Fair Other: Pt sat unsupported at EOB without LOB. Pt completed static stand at sink x5 min with SBA andintermittent UE support. RUE Assessment: Within Functional Limits LUE Assessment: Within Functional Limits Activity Tolerance Endurance: Tolerates <30 minutes activity WITHOUT vital sign changes Other: Pt tolerated activity without rest breaks. Plan Occupational Therapy Care Plan Occupational Therapy Care Plan (Active) Template: OT - Occupational Therapy Problem: Activity Tolerance Dates: Start: 03/13/24 Disciplines: OT Goal: Tolerate > 30 minutes of activity WITHOUT rest breaks Dates: Start: 03/13/24 Expected End: 04/06/24 Description: Goal Description: Disciplines: OT Outcomes Date/Time User Outcome 03/17/24 8971 CLINTON Lee/Cameron Progressing Goal Note filed on 03/17/24 6080 by CLINTON Lee/Cameron Evaluation of progress towards goal: Problem: Bed Mobility Dates: Start: 03/13/24 Disciplines: OT Goal: Patient will perform bed mobility with Modified Giles Dates: Start: 03/13/24 Expected End: 04/06/24 Description: Goal Description: Disciplines: OT Outcomes Date/Time User Outcome 03/17/24 1355 Marilin Lindo OTR/L Progressing Goal Note filed on 03/17/24 135 by Marilin Lindo OTR/L Evaluation of progress towards goal: Problem: Functional Mobility Dates: Start: 03/13/24 Disciplines: OT Goal: Patient will perform functional mobility with Modified Giles Dates: Start: 03/13/24 Expected End: 04/06/24 Description: Goal Description: Disciplines: OT Outcomes Date/Time User Outcome 03/17/24 1355 Marilin Lindo OTR/L Progressing Goal Note filed on 03/17/24 135 by Marilin Lindo OTR/L Evaluation of progress towards goal: Problem: Other (Customize) Dates: Start: 03/13/24 Disciplines: OT Goal: Improve Dates: Start: 03/13/24 Expected End: 04/06/24 Description: Pt will complete all areas of ADL Tasks at Mod I with use of DME as needed and good safety awareness Disciplines: OT Outcomes Date/Time User Outcome 03/17/24 135 Marilin Lindo OTR/Cameron Progressing Goal Note filed on 03/17/24 135 by Marilin Lindo OTR/Cameron Evaluation of progress towards goal: Problem: Sitting Balance Dates: Start: 03/13/24 Disciplines: OT Goal: Improve balance to normal Dates: Start: 03/13/24 Expected End: 04/06/24 Description: Static Dynamic Disciplines: OT Outcomes Date/Time User Outcome 03/17/24 1355 Marilin Lindo OTR/L Progressing Goal Note filed on 03/17/24 1355 by Marilin Lindo OTR/Cameron Evaluation of progress towards goal: Problem: Standing Balance Dates: Start: 03/13/24 Disciplines: OT Goal: Improve balance to normal Dates: Start: 03/13/24 Expected End: 04/06/24 Description: Static Dynamic Disciplines: OT Outcomes Date/Time User Outcome 03/17/24 1355 Marilin Lindo OTR/L Progressing Goal Note filed on 03/17/24 1355 by SREEKANTH Lee Evaluation of progress towards goal: Problem: Strength Dates: Start: 03/13/24 Disciplines: OT Goal: Improve strength Dates: Start: 03/13/24 Expected End: 04/06/24 Description: Pt will tolerate BUE HEP to progress stamina to care for self Disciplines: OT Problem: Transfers Dates: Start: 03/13/24 Disciplines: OT Goal: Patient will perform transfers with Modified Giles Dates: Start: 03/13/24 Expected End: 04/06/24 Description: Goal Description: Disciplines: OT Outcomes Date/Time User Outcome 03/17/24 1355 SREEKANTH Lee Progressing Goal Note filed on 03/17/24 135 by SREEKANTH Lee Evaluation of progress towards goal: Occupational Therapy Care Plan (Resolved) There are no resolved problems. Principal Problem: Acute renal failure (ARF) ([facility]) Active Problems: Chronic diastolic congestive heart failure ([facility]) 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 Major depressive disorder History of myocardial infarction Spondylosis of lumbosacral region without myelopathy or radiculopathy Gross hematuria Staghorn calculus Pathological fracture of thoracic vertebra with delayed healing Intractable back pain Vitamin D deficiency Age-related osteoporosis with current pathological fracture * Plan of Care - Micky Anderson RN - 03/17/2024 11:36 AM EST Problem: Pain Goal: Patient goal is pain score less than 4, able to rest, and participant in treatment plan as appropriate Description: INTERVENTIONS: 1. Encourage patient or legal customer account representative to report early pain and ask for pain medicine when needed 2. Assess pain using appropriate pain scale and include the scale used when documenting 3. Administer analgesics based on type and severity of pain and evaluate response within appropriate time frame 4. Implement non-pharmacological measures as appropriate and evaluate response 5. Consider cultural and social influences on pain and pain management 6. Notify LIP if interventions ineffective or patient reports new pain 7. Monitor vital signs including pulse ox, end-tidal CO2 based on pain intervention 8. Reassess pain per policy 9. Teach patient or legal customer account representative interventions for comforting Outcome: Progressing Note: Evaluation of progress towards goal: Patient is able to call out for medications appropriately when in pain. Problem: Safety Goal: Patient will be injury free during hospitalization Description: INTERVENTIONS: 1. Assess patient's risk for falls and implement fall prevention plan of care per policy 2. Provide and maintain a safe environment 3. Proper use of double Identifiers 4. Medication administration using the 5 rights 5. Hand hygiene 6. Specimens are labeled at the bedside 7. Instruct patient/ patient customer account representative about use of safety devices 8. Include patient/ patient customer account representative in decisions related to safety Outcome: Progressing Note: Evaluation of progress towards goal: Patient has remained injury free for the duration of their hospitalization. Assistive devices in place such as the maxi katheryn and repositioning sling. Bed remains in the lowest position with all personal items within reach. 2/4 side rails up. Call light within reach. Problem: Infection Goal: Absence of infection during hospitalization Description: INTERVENTIONS 1. Assess and monitor for signs and symptoms of infection. 2. Monitor lab/diagnostic results. 3. Monitor all insertion sites i.e., indwelling lines, tubes and drains. 4. Monitor endotracheal (as able) and nasal secretions for changes in amount and color. 5. Administer medications as ordered. 6. Instruct and encourage patient and family to use good hand hygiene technique. 7. Identify and instruct patient/patient customer account representative in use of appropriate isolation precautionsfor identified infection/symptoms. 8. Provide and discuss with patient/patient customer account representative on educational MDRO sheet. 9. Encourage and monitor nutritional status daily and consult court monitor if indicated. 10. Implement neutropenic guidelines as needed. Outcome: Progressing Note: Evaluation of progress towards goal: Patient remains afebrile at this time. Problem: Knowledge Deficit Goal: Patient/patient customer account representative demonstrates understanding of disease process, treatment plan,medications, and discharge instructions Description: INTERVENTIONS 1. Complete learning assessment and assess knowledge base 2. Provide teaching at level of understanding 3. Provide teaching via preferred learning method(s) Outcome: Progressing Note: Evaluation of progress towards goal: Patient educated with some evidence of learning. * Plan of Care - Daphne Mendoza RN - 03/17/2024 2:02 AM EST Problem: Pain Goal: Patient goal is pain score less than 4, able to rest, and participant in treatment plan as appropriate Description: INTERVENTIONS: 1. Encourage patient or legal customer account representative to report early pain and ask for pain medicine when needed 2. Assess pain using appropriate pain scale and include the scale used when documenting 3. Administer analgesics based on type and severity of pain and evaluate response within appropriate time frame 4. Implement non-pharmacological measures as appropriate and evaluate response 5. Consider cultural and social influences on pain and pain management 6. Notify LIP if interventions ineffective or patient reports new pain 7. Monitor vital signs including pulse ox, end-tidal CO2 based on pain intervention 8. Reassess pain per policy 9. Teach patient or legal customer account representative interventions for comforting Outcome: Progressing Note: Evaluation of progress towards goal: Pt's pain has been managed and kept comfortable Problem: Safety Goal: Patient will be injury free during hospitalization Description: INTERVENTIONS: 1. Assess patient's risk for falls and implement fall prevention plan of care per policy 2. Provide and maintain a safe environment 3. Proper use of double Identifiers 4. Medication administration using the 5 rights 5. Hand hygiene 6. Specimens are labeled at the bedside 7. Instruct patient/ patient customer account representative about use of safety devices 8. Include patient/ patient customer account representative in decisions related to safety Outcome: Progressing Note: Evaluation of progress towards goal: Pt has remained free from injury at this time Problem: Discharge Planning Goal: Discharge to post-acute care, other facility, or home with appropriate resources Description: Patient's goal is: home INTERVENTIONS 1. Conduct assessment to determine patient/family and health care team treatment goals, and need for post-acute services based on payer coverage, community resources, and patient preferences, and barriers to discharge 2. Coordinate with Social work, Care Navigation, and Utilization Review to arrange appropriate level of services according to patient's needs based on patient preference and payer coverage in collaboration with the physician and health care team 3. Address psychosocial, clinical, and financial barriers to discharge as identified in assessment in conjunction with the patient/family and health care team 4. Consult appropriate ancillary services (i.e.. PT/OT/ST, etc) as needed 5. Communicate with and update the patient/family, physician, and health care team regarding progress on the discharge plan 6. Identify discharge learning needs (meds, wound care, etc). 7. Arrange for needed discharge transportation as appropriate Outcome: Progressing Note: Evaluation of progress towards goal: Pt has appropriate resources for discharge Problem: Moderate - High Risk Fall Score Description: Bell Fall Score of =/> 25 or indicated by [facility] Assessment Goal: Patient should be free from fall Description: Interventions: 1. [place] to environment 2. Hourly rounds addressing the 4 P's (Pain, Positioning, Possessions, Potty) 3. Clear area of hazards (spills, clutter, electrical cords, unnecessary equipment) 4. Place equipment (bed & TV controls, call light, phone, urinal) within reach 5. Encourage patient to wear glasses and hearing aides as appropriate 6. Maintain bed in lowest position 7. Lock wheels on bed/wheelchair 8. Provide adequate lighting, including night light 9. Assess need for additional bedding, food/fluids, pain med's prior to sleep/routinely 10. Provide gripper slippers or personal non-skid footwear 11. Teach patient and patient customer account representative to maintain environment for safety and engage in all aspects of fall prevention program 12. Remind patient to call for help before getting out of bed 13. Initiate bed/chair/exit alarms supportive devices as appropriate, (chair wedge, no-skid floor mat, raised edge mattress, hip protectors) 14. Locate patient bed assignment for optimal visualization 15. Evaluate and identify Safe Patient Handling Equipment needs 16. Provide supervision when out of bed or chair 17. Utilize gait belt as needed to assist with ambulation 18. Place adaptive equipment (cane, walker) within reach 19. Request patient customer account representative bring adaptive equipment/mobility aids from home or obtain and provide as needed 20. Consult pharmacy regarding effects of med's affecting mobility, cognition, and alternatives 21. Obtain physician order for PT if risk factors associated with mobility are present 22. Obtain physician order for OT as appropriate 23. Utilize diversional activities 24. Educate patient and patient customer account representative how to maintain a safe environment during visitationtimes (notify nurse prior to leaving bedside) 25. Consider appropriateness of medical or non-bilingual medical assistant 26. Set up voiding schedule as appropriate (every 2 hours) Outcome: Progressing Note: Evaluation of progress towards goal: Pt has remained free from falls at this time * Op Note - Piero Dumont Jr., MD - 03/16/2024 4:33 PM EST DATE OF VISIT: 03/16/2024 PREOPERATIVE DIAGNOSIS: Nonunion pathological T12 fracture. POSTOPERATIVE DIAGNOSIS: 1. Nonunion pathological T12 fracture. 2. Incomplete anterior spontaneous thoracic fusion T11-T12. OPERATION PERFORMED: 1. Kyphoplasty vertebral augmentation, pathological T12 fracture. 2. Biopsy pathological T12 fracture. 3. AP lateral fluoroscopy of thoracic spine, 32732-08. 4. Less than 1 hour physician intraoperative C-arm interpretation, CPT code 38372. INDICATIONS: The patient is a 73-year-old who required admission to [facility] with medical and orthopedic problems. Intractable pain has been present since a compression fracture. He has been treated by Neurosurgery with a TLSO 11/29/2023. Continued pain despite appropriate bracing, restricted activities and medications. His current hospitalization included a CT. Incomplete healing with a fracture cleft identified in the anterior column as well as incomplete spontaneous anterior fusion T12-T11. Surgical options were discussed. The kyphoplasty, vertebral augmentation, biopsy was discussed, decrease pain, decrease kyphotic deformity, eliminate the need for spine orthosis, and obtain tissue diagnosis. Risks of the procedure including infection, phlebitis, neurovascular injury, anesthetic complications, failure of procedure, new fractures, amongst others were discussed and accepted. DESCRIPTION OF PROCEDURE: It should be mentioned that the patient's injury occurred in a truck fall with initial films 10/20/2023. The patient was brought to the operative room and given a general anesthetic. He was given prophylactic Ancef per SCIP protocol. He was carefully rotated to the prone position on a well-padded Samson frame. Two C-arms were brought in. True AP and true lateral images were obtained of the T12 fracture. The spine was therefore scrubbed, prepped, and draped in routine sterile fashion with Betadine. An 18-gauge spinal needle facilitated portal position. A total of 30 mL of 0.5% Marcaine with epinephrine was injected in the skin, subcutaneous tissue, and paraspinal musculature. It was taken down to the posterior elements. The coronal dimensions were normal. They were not wide consistent with osteoporosis. The 15/3 beveled-tip trocar was docked on the costal element. It was impacted through middle column callus and once the anterior column was achieved, it was a cleft of fibrous tissue incomplete healing. A diagnostic trabecular biopsy was obtained through a cannula trocar. This was followed by the hand drill creating a tract for the IBT. This was done on the contralateral side as well. Satisfactory balloon position. They were inflated with some correction of anterior column height loss. AP and lateral fluoroscopy was used throughout the operative procedure. The images were interpreted by myself regarding fracture, reduction, and implant position. On a back table Activos methylmethacrylate was prepared. It has hydroxyapatite to facilitate fracture healing. It was carefully back-filled into the void created by the balloons. There was starting to be some leakage through the superior endplate cleft as this was identified. Further injection was withheld. No canal involvement. Satisfied with the procedure, the portals were infiltrated with the 0.5% Marcaine and closed with a 3-0 nylon with a fluff and ABD dressing secured. Having tolerated the procedure well, the patient was transferred to recovery room in stable condition. VBB/MODL J#: [id number] * Op Note - Piero Dumont Jr., MD - 03/16/2024 2:08 PM EST Ortho Post-op Note NAME: Brian Mandel : 1950 PROCEDURE DATE: 03/16/2024 Surgeon: Surgeons and Role: * Piero Dumont Jr., MD - Primary Staff: Shipping Room Supervisor Primary: Faviola Franco RN Plate Painter: JULIOCESAR Tatum Scrub Person: Marisa Rabago Pre-op Diagnosis: compression fracture nonunion pathological osteoporotic T12 compression fracture Procedure Details: Procedure(s): AUGMENTATION VERTEBRAL KYPHOPLASTY SPINE T12 - Wound Class: Clean - Incision Closure: Deep and Superficial Layers; kyphoplasty vertebral augmentation nonunion pathological osteoporotic T12 compression fracture; biopsy pathological osteoporotic T12 nonunion compression fracture; AP lateral fluoroscopy thoracic spine 52337-93; less than 1 hour physician intraoperative C-arm interpretation CPT code 29602 Anesthesia Type: General * No Diagnosis Codes entered * Complications: None Additions (Drains, Specimens, Implants): Drains: * No LDAs found * Specimens: ID Type Source Tests Collected by Time 1 : T 12 BONE BIOPSY Tissue Other SURGICAL PATHOLOGY Piero Dumont Jr., MD 03/16/2024 1411 Implants: Implant Name Type Inv. Item Serial No. Siebel Architect Lot No. LRB No. Used Action CEMENT BN - [id number] Cement CEMENT BN [employer] [id number] N/A 1 Implanted CEMENT BN KYPHON ACTIVOS 10 10% URIOSTEGUI - [id number] Cement CEMENT BN KYPHON ACTIVOS 10 10% URIOSTEGUI use MDTR SPIN [id number] N/A 1 Implanted Estimated Blood Loss: * No values recorded between 03/16/2024 2:08 PM and 03/16/2024 3:07 PM * Total IV Fluids: Intravenous fluids were administered Lactated Ringers . Condition: good Findings: See dictation * PT/OT/RESEARCH TEST ENGINE OPERATOR - Tina García, PT - 03/16/2024 11:29 AM EST Physical Therapy PT Type of Visit: Medical deferral Spoke with Francois ALAS whom reported pt getting blood at this time and plans for kyphoplasty later this date. * PT/OT/RESEARCH TEST ENGINE OPERATOR - Rosa Merino OT/Cameron - 03/16/2024 11:27 AM EST Occupational Therapy OT Type of Visit: (P) Medical deferral per RN Dedrick pt is getting blood then plans to go for kypho this afternoon. * Discharge Planning Note - Elayne Burden RN - 03/16/2024 10:52 AM EST DISCHARGE PLANNING NOTE Per RN during discharge transition rounds, barriers to discharge are: Kyphoplasty today, art line for surgery, decreased HGB, PRBC. Discharge Plan: Home Self Care Ophthalmic Technician will continue to follow for any discharge needs. Will continue to monitor for progress towards safe DC. - ELAYNE BURDEN RN 03/16/24 10:54 AM * Plan of Care - Micky Anderson RN - 03/16/2024 9:04 AM EST Problem: Pain Goal: Patient goal is pain score less than 4, able to rest, and participant in treatment plan as appropriate Description: INTERVENTIONS: 1. Encourage patient or legal customer account representative to report early pain and ask for pain medicine when needed 2. Assess pain using appropriate pain scale and include the scale used when documenting 3. Administer analgesics based on type and severity of pain and evaluate response within appropriate time frame 4. Implement non-pharmacological measures as appropriate and evaluate response 5. Consider cultural and social influences on pain and pain management 6. Notify LIP if interventions ineffective or patient reports new pain 7. Monitor vital signs including pulse ox, end-tidal CO2 based on pain intervention 8. Reassess pain per policy 9. Teach patient or legal customer account representative interventions for comforting Outcome: Progressing Note: Evaluation of progress towards goal: Patient is able to call out for medications appropriately when in pain. Problem: Safety Goal: Patient will be injury free during hospitalization Description: INTERVENTIONS: 1. Assess patient's risk for falls and implement fall prevention plan of care per policy 2. Provide and maintain a safe environment 3. Proper use of double Identifiers 4. Medication administration using the 5 rights 5. Hand hygiene 6. Specimens are labeled at the bedside 7. Instruct patient/ patient customer account representative about use of safety devices 8. Include patient/ patient customer account representative in decisions related to safety Outcome: Progressing Note: Evaluation of progress towards goal: Patient has remained injury free for the duration of their hospitalization. Assistive devices in place such as the maxi katheryn and repositioning sling. Bed remains in the lowest position with all personal items within reach. 2/4 side rails up. Call light within reach. Problem: Infection Goal: Absence of infection during hospitalization Description: INTERVENTIONS 1. Assess and monitor for signs and symptoms of infection. 2. Monitor lab/diagnostic results. 3. Monitor all insertion sites i.e., indwelling lines, tubes and drains. 4. Monitor endotracheal (as able) and nasal secretions for changes in amount and color. 5. Administer medications as ordered. 6. Instruct and encourage patient and family to use good hand hygiene technique. 7. Identify and instruct patient/patient customer account representative in use of appropriate isolation precautionsfor identified infection/symptoms. 8. Provide and discuss with patient/patient customer account representative on educational MDRO sheet. 9. Encourage and monitor nutritional status daily and consult court monitor if indicated. 10. Implement neutropenic guidelines as needed. Outcome: Progressing Note: Evaluation of progress towards goal: Patient remains afebrile at this time. Problem: Knowledge Deficit Goal: Patient/patient customer account representative demonstrates understanding of disease process, treatment plan,medications, and discharge instructions Description: INTERVENTIONS 1. Complete learning assessment and assess knowledge base 2. Provide teaching at level of understanding 3. Provide teaching via preferred learning method(s) Outcome: Progressing Note: Evaluation of progress towards goal: Patient educated with some evidence of learning. Problem: Discharge Planning Goal: Discharge to post-acute care, other facility, or home with appropriate resources Description: Patient's goal is: home INTERVENTIONS 1. Conduct assessment to determine patient/family and health care team treatment goals, and need for post-acute services based on payer coverage, community resources, and patient preferences, and barriers to discharge 2. Coordinate with Social work, Care Navigation, and Utilization Review to arrange appropriate level of services according to patient's needs based on patient preference and payer coverage in collaboration with the physician and health care team 3. Address psychosocial, clinical, and financial barriers to discharge as identified in assessment in conjunction with the patient/family and health care team 4. Consult appropriate ancillary services (i.e.. PT/OT/ST, etc) as needed 5. Communicate with and update the patient/family, physician, and health care team regarding progress on the discharge plan 6. Identify discharge learning needs (meds, wound care, etc). 7. Arrange for needed discharge transportation as appropriate Outcome: Progressing Note: Evaluation of progress towards goal: Social work on and following. All questions and concernsaddressed. * Plan of Care - Daphne Mendoza RN - 03/16/2024 3:13 AM EST Problem: Pain Goal: Patient goal is pain score less than 4, able to rest, and participant in treatment plan as appropriate Description: INTERVENTIONS: 1. Encourage patient or legal customer account representative to report early pain and ask for pain medicine when needed 2. Assess pain using appropriate pain scale and include the scale used when documenting 3. Administer analgesics based on type and severity of pain and evaluate response within appropriate time frame 4. Implement non-pharmacological measures as appropriate and evaluate response 5. Consider cultural and social influences on pain and pain management 6. Notify LIP if interventions ineffective or patient reports new pain 7. Monitor vital signs including pulse ox, end-tidal CO2 based on pain intervention 8. Reassess pain per policy 9. Teach patient or legal customer account representative interventions for comforting Outcome: Progressing Note: Evaluation of progress towards goal: Pt's pain has been managed and kept comfortable Problem: Safety Goal: Patient will be injury free during hospitalization Description: INTERVENTIONS: 1. Assess patient's risk for falls and implement fall prevention plan of care per policy 2. Provide and maintain a safe environment 3. Proper use of double Identifiers 4. Medication administration using the 5 rights 5. Hand hygiene 6. Specimens are labeled at the bedside 7. Instruct patient/ patient customer account representative about use of safety devices 8. Include patient/ patient customer account representative in decisions related to safety Outcome: Progressing Note: Evaluation of progress towards goal: Pt has remained free from injury at this time Problem: Discharge Planning Goal: Discharge to post-acute care, other facility, or home with appropriate resources Description: Patient's goal is: home INTERVENTIONS 1. Conduct assessment to determine patient/family and health care team treatment goals, and need for post-acute services based on payer coverage, community resources, and patient preferences, and barriers to discharge 2. Coordinate with Social work, Care Navigation, and Utilization Review to arrange appropriate level of services according to patient's needs based on patient preference and payer coverage in collaboration with the physician and health care team 3. Address psychosocial, clinical, and financial barriers to discharge as identified in assessment in conjunction with the patient/family and health care team 4. Consult appropriate ancillary services (i.e.. PT/OT/ST, etc) as needed 5. Communicate with and update the patient/family, physician, and health care team regarding progress on the discharge plan 6. Identify discharge learning needs (meds, wound care, etc). 7. Arrange for needed discharge transportation as appropriate Outcome: Progressing Note: Evaluation of progress towards goal: Pt has appropriate resources for discharge Problem: Moderate - High Risk Fall Score Description: Bell Fall Score of =/> 25 or indicated by [facility] Assessment Goal: Patient should be free from fall Description: Interventions: 1. [place] to environment 2. Hourly rounds addressing the 4 P's (Pain, Positioning, Possessions, Potty) 3. Clear area of hazards (spills, clutter, electrical cords, unnecessary equipment) 4. Place equipment (bed & TV controls, call light, phone, urinal) within reach 5. Encourage patient to wear glasses and hearing aides as appropriate 6. Maintain bed in lowest position 7. Lock wheels on bed/wheelchair 8. Provide adequate lighting, including night light 9. Assess need for additional bedding, food/fluids, pain med's prior to sleep/routinely 10. Provide gripper slippers or personal non-skid footwear 11. Teach patient and patient customer account representative to maintain environment for safety and engage in all aspects of fall prevention program 12. Remind patient to call for help before getting out of bed 13. Initiate bed/chair/exit alarms supportive devices as appropriate, (chair wedge, no-skid floor mat, raised edge mattress, hip protectors) 14. Locate patient bed assignment for optimal visualization 15. Evaluate and identify Safe Patient Handling Equipment needs 16. Provide supervision when out of bed or chair 17. Utilize gait belt as needed to assist with ambulation 18. Place adaptive equipment (cane, walker) within reach 19. Request patient customer account representative bring adaptive equipment/mobility aids from home or obtain and provide as needed 20. Consult pharmacy regarding effects of med's affecting mobility, cognition, and alternatives 21. Obtain physician order for PT if risk factors associated with mobility are present 22. Obtain physician order for OT as appropriate 23. Utilize diversional activities 24. Educate patient and patient customer account representative how to maintain a safe environment during visitationtimes (notify nurse prior to leaving bedside) 25. Consider appropriateness of medical or non-bilingual medical assistant 26. Set up voiding schedule as appropriate (every 2 hours) Outcome: Progressing Note: Evaluation of progress towards goal: Pt has remained free from falls at this time * Discharge Planning Note - NICHOLAS Loza - 03/15/2024 10:21 AM EST DISCHARGE PLANNING NOTE Reviewed in Daily Transition rounds. Patient to have kyphoplasty today. Transiton plan at this timeremains home with self-care pending progress and treatment plan.nozzle and sleeve worker to follow and assist with appropriate transition plans. - NICHOLAS Loza 03/15/24 10:24 AM * Plan of Care - Maria Antonia Valentin RN - 03/15/2024 7:10 AM EST Problem: Pain Goal: Patient goal is pain score less than 4, able to rest, and participant in treatment plan as appropriate Description: INTERVENTIONS: 1. Encourage patient or legal customer account representative to report early pain and ask for pain medicine when needed 2. Assess pain using appropriate pain scale and include the scale used when documenting 3. Administer analgesics based on type and severity of pain and evaluate response within appropriate time frame 4. Implement non-pharmacological measures as appropriate and evaluate response 5. Consider cultural and social influences on pain and pain management 6. Notify LIP if interventions ineffective or patient reports new pain 7. Monitor vital signs including pulse ox, end-tidal CO2 based on pain intervention 8. Reassess pain per policy 9. Teach patient or legal customer account representative interventions for comforting Outcome: Progressing Note: Evaluation of progress towards goal: Pt assessed for pain via 0-10 pain scale. Pt has PRN analgesics available. Will continue to reassessed Pt's pain appropriately. Problem: Safety Goal: Patient will be injury free during hospitalization Description: INTERVENTIONS: 1. Assess patient's risk for falls and implement fall prevention plan of care per policy 2. Provide and maintain a safe environment 3. Proper use of double Identifiers 4. Medication administration using the 5 rights 5. Hand hygiene 6. Specimens are labeled at the bedside 7. Instruct patient/ patient customer account representative about use of safety devices 8. Include patient/ patient customer account representative in decisions related to safety Outcome: Progressing Note: Evaluation of progress towards goal: Pt remains free from injury at this time. Safety measures at bedside. Problem: Infection Goal: Absence of infection during hospitalization Description: INTERVENTIONS 1. Assess and monitor for signs and symptoms of infection. 2. Monitor lab/diagnostic results. 3. Monitor all insertion sites i.e., indwelling lines, tubes and drains. 4. Monitor endotracheal (as able) and nasal secretions for changes in amount and color. 5. Administer medications as ordered. 6. Instruct and encourage patient and family to use good hand hygiene technique. 7. Identify and instruct patient/patient customer account representative in use of appropriate isolation precautionsfor identified infection/symptoms. 8. Provide and discuss with patient/patient customer account representative on educational MDRO sheet. 9. Encourage and monitor nutritional status daily and consult court monitor if indicated. 10. Implement neutropenic guidelines as needed. Outcome: Progressing Note: Evaluation of progress towards goal: Patient evaluated for S/S of infection. Patients vital signs, labs, and diagnostic results are being monitored each shift. Patient remains free from infection at this time. Problem: Knowledge Deficit Goal: Patient/patient customer account representative demonstrates understanding of disease process, treatment plan,medications, and discharge instructions Description: INTERVENTIONS 1. Complete learning assessment and assess knowledge base 2. Provide teaching at level of understanding 3. Provide teaching via preferred learning method(s) Outcome: Progressing Note: Evaluation of progress towards goal: Patient updated on plan of care. Patient's level of understanding assessed as appropriate. Problem: Discharge Planning Goal: Discharge to post-acute care, other facility, or home with appropriate resources Description: Patient's goal is: home INTERVENTIONS 1. Conduct assessment to determine patient/family and health care team treatment goals, and need for post-acute services based on payer coverage, community resources, and patient preferences, and barriers to discharge 2. Coordinate with Social work, Care Navigation, and Utilization Review to arrange appropriate level of services according to patient's needs based on patient preference and payer coverage in collaboration with the physician and health care team 3. Address psychosocial, clinical, and financial barriers to discharge as identified in assessment in conjunction with the patient/family and health care team 4. Consult appropriate ancillary services (i.e.. PT/OT/ST, etc) as needed 5. Communicate with and update the patient/family, physician, and health care team regarding progress on the discharge plan 6. Identify discharge learning needs (meds, wound care, etc). 7. Arrange for needed discharge transportation as appropriate Outcome: Progressing Note: Evaluation of progress towards goal: Discharge Planning is in progress at this time. Plan remains to: home Problem: Excessive Fluid Volume Goal: Fluid and electrolyte balance are achieved/maintained Description: INTERVENTIONS 1. Monitor vitals signs oxygen saturation, respiratory status to include rate, depth, effort, and lung sounds, ) urine color, labs, edema, jugular venous distention, and mental status 2. Monitor patient's weight 3. Monitor intake and output 4. Elevate head of bed 30 degrees 5. Turn patient 6. Monitor low sodium and fluid restriction diet per physician order 7. Collaborate with interdisciplinary team and initiate plan and interventions as ordered Outcome: Progressing Note: Evaluation of progress towards goal: Patients electrolytes monitored daily and PRN. Electrolytes being replaced per order. Problem: Urinary Incontinence Goal: Perineal skin integrity is maintained or improved Description: INTERVENTIONS 1. Assess genitourinary system, perineal skin, labs (urinalysis), and history of incontinence to include past management, aggravating, and alleviating factors 2. Keep skin clean and dry 3. Apply skin protectant 4. Develop skin care regimen 5. Provide privacy when changing patients incontinence device to maintain their dignity 6. Consider placing an indwelling catheter 7. Collaborate with interdisciplinary team and initiate plans and interventions as needed Outcome: Completed Note: Evaluation of progress towards goal: pt using urinal appropriately * Plan of Care - Juana Hurley RN - 03/14/2024 8:44 PM EST Problem: Pain Goal: Patient goal is pain score less than 4, able to rest, and participant in treatment plan as appropriate Description: INTERVENTIONS: 1. Encourage patient or legal customer account representative to report early pain and ask for pain medicine when needed 2. Assess pain using appropriate pain scale and include the scale used when documenting 3. Administer analgesics based on type and severity of pain and evaluate response within appropriate time frame 4. Implement non-pharmacological measures as appropriate and evaluate response 5. Consider cultural and social influences on pain and pain management 6. Notify LIP if interventions ineffective or patient reports new pain 7. Monitor vital signs including pulse ox, end-tidal CO2 based on pain intervention 8. Reassess pain per policy 9. Teach patient or legal customer account representative interventions for comforting Outcome: Progressing Note: Evaluation of progress towards goal: Patient's pain was assessed using the 0-10 adult pain scale. Patient denies pain at this time. Patient has PRN pain medication available. Will continue to monitor for duration of shift. Problem: Safety Goal: Patient will be injury free during hospitalization Description: INTERVENTIONS: 1. Assess patient's risk for falls and implement fall prevention plan of care per policy 2. Provide and maintain a safe environment 3. Proper use of double Identifiers 4. Medication administration using the 5 rights 5. Hand hygiene 6. Specimens are labeled at the bedside 7. Instruct patient/ patient customer account representative about use of safety devices 8. Include patient/ patient customer account representative in decisions related to safety Outcome: Progressing Note: Evaluation of progress towards goal: Patient remains free from falls or injury at this time. Patient in bed at lowest position, wheels locked, 2/4 side rails up, personal items and call light within reach. Will continue to monitor patient safety for duration of shift. Problem: Infection Goal: Absence of infection during hospitalization Description: INTERVENTIONS 1. Assess and monitor for signs and symptoms of infection. 2. Monitor lab/diagnostic results. 3. Monitor all insertion sites i.e., indwelling lines, tubes and drains. 4. Monitor endotracheal (as able) and nasal secretions for changes in amount and color. 5. Administer medications as ordered. 6. Instruct and encourage patient and family to use good hand hygiene technique. 7. Identify and instruct patient/patient customer account representative in use of appropriate isolation precautionsfor identified infection/symptoms. 8. Provide and discuss with patient/patient customer account representative on educational MDRO sheet. 9. Encourage and monitor nutritional status daily and consult court monitor if indicated. 10. Implement neutropenic guidelines as needed. Outcome: Progressing Note: Evaluation of progress towards goal: Labs monitored. Patient afebrile, VSS. No changes noted.Patient is receiving IV antibiotics. Will continue to monitor for duration of shift. Problem: Moderate - High Risk Fall Score Description: Bell Fall Score of =/> 25 or indicated by [facility] Assessment Goal: Patient should be free from fall Description: Interventions: 1. [place] to environment 2. Hourly rounds addressing the 4 P's (Pain, Positioning, Possessions, Potty) 3. Clear area of hazards (spills, clutter, electrical cords, unnecessary equipment) 4. Place equipment (bed & TV controls, call light, phone, urinal) within reach 5. Encourage patient to wear glasses and hearing aides as appropriate 6. Maintain bed in lowest position 7. Lock wheels on bed/wheelchair 8. Provide adequate lighting, including night light 9. Assess need for additional bedding, food/fluids, pain med's prior to sleep/routinely 10. Provide gripper slippers or personal non-skid footwear 11. Teach patient and patient customer account representative to maintain environment for safety and engage in all aspects of fall prevention program 12. Remind patient to call for help before getting out of bed 13. Initiate bed/chair/exit alarms supportive devices as appropriate, (chair wedge, no-skid floor mat, raised edge mattress, hip protectors) 14. Locate patient bed assignment for optimal visualization 15. Evaluate and identify Safe Patient Handling Equipment needs 16. Provide supervision when out of bed or chair 17. Utilize gait belt as needed to assist with ambulation 18. Place adaptive equipment (cane, walker) within reach 19. Request patient customer account representative bring adaptive equipment/mobility aids from home or obtain and provide as needed 20. Consult pharmacy regarding effects of med's affecting mobility, cognition, and alternatives 21. Obtain physician order for PT if risk factors associated with mobility are present 22. Obtain physician order for OT as appropriate 23. Utilize diversional activities 24. Educate patient and patient customer account representative how to maintain a safe environment during visitationtimes (notify nurse prior to leaving bedside) 25. Consider appropriateness of medical or non-bilingual medical assistant 26. Set up voiding schedule as appropriate (every 2 hours) Outcome: Progressing Note: Evaluation of progress towards goal: Patient remains free from falls at this time. High fall risk interventions in place. Problem: Excessive Fluid Volume Goal: Fluid and electrolyte balance are achieved/maintained Description: INTERVENTIONS 1. Monitor vitals signs oxygen saturation, respiratory status to include rate, depth, effort, and lung sounds, ) urine color, labs, edema, jugular venous distention, and mental status 2. Monitor patient's weight 3. Monitor intake and output 4. Elevate head of bed 30 degrees 5. Turn patient 6. Monitor low sodium and fluid restriction diet per physician order 7. Collaborate with interdisciplinary team and initiate plan and interventions as ordered Outcome: Progressing Note: Evaluation of progress towards goal: Pt vital signs and labs being monitored. Pt being weighed daily and I&O monitored. Will continue to monitor for duration of shift. * Discharge Planning Note - Khadra Aragon RN - 03/14/2024 11:45 AM EST DISCHARGE PLANNING NOTE Case discussed in daily transition rounds and chart reviewed by CN. Barriers to discharge include IV antibiotics, monitoring labs Discharge Plan remains: home self care. PT/OT recommend home per evaluation. Re- tasked new PCP appointment, [facility] was unable to make appointment on 03/09 per chart review. CN will continue to follow and is available should any further needs arise. - Khadra Aragon RN 03/14/24 11:45 AM * Plan of Care - Maria Antonia Valentin RN - 03/14/2024 7:31 AM EST Problem: Pain Goal: Patient goal is pain score less than 4, able to rest, and participant in treatment plan as appropriate Description: INTERVENTIONS: 1. Encourage patient or legal customer account representative to report early pain and ask for pain medicine when needed 2. Assess pain using appropriate pain scale and include the scale used when documenting 3. Administer analgesics based on type and severity of pain and evaluate response within appropriate time frame 4. Implement non-pharmacological measures as appropriate and evaluate response 5. Consider cultural and social influences on pain and pain management 6. Notify LIP if interventions ineffective or patient reports new pain 7. Monitor vital signs including pulse ox, end-tidal CO2 based on pain intervention 8. Reassess pain per policy 9. Teach patient or legal customer account representative interventions for comforting Outcome: Progressing Note: Evaluation of progress towards goal: Pt assessed for pain via 0-10 pain scale. Pt has PRN analgesics available. Will continue to reassessed Pt's pain appropriately. Problem: Safety Goal: Patient will be injury free during hospitalization Description: INTERVENTIONS: 1. Assess patient's risk for falls and implement fall prevention plan of care per policy 2. Provide and maintain a safe environment 3. Proper use of double Identifiers 4. Medication administration using the 5 rights 5. Hand hygiene 6. Specimens are labeled at the bedside 7. Instruct patient/ patient customer account representative about use of safety devices 8. Include patient/ patient customer account representative in decisions related to safety Outcome: Progressing Note: Evaluation of progress towards goal: Pt remains free from injury at this time. Safety measures at bedside. Problem: Infection Goal: Absence of infection during hospitalization Description: INTERVENTIONS 1. Assess and monitor for signs and symptoms of infection. 2. Monitor lab/diagnostic results. 3. Monitor all insertion sites i.e., indwelling lines, tubes and drains. 4. Monitor endotracheal (as able) and nasal secretions for changes in amount and color. 5. Administer medications as ordered. 6. Instruct and encourage patient and family to use good hand hygiene technique. 7. Identify and instruct patient/patient customer account representative in use of appropriate isolation precautionsfor identified infection/symptoms. 8. Provide and discuss with patient/patient customer account representative on educational MDRO sheet. 9. Encourage and monitor nutritional status daily and consult court monitor if indicated. 10. Implement neutropenic guidelines as needed. Outcome: Progressing Note: Evaluation of progress towards goal: Patient evaluated for S/S of infection. Patients vital signs, labs, and diagnostic results are being monitored each shift. Patient on IV atb. Problem: Knowledge Deficit Goal: Patient/patient customer account representative demonstrates understanding of disease process, treatment plan,medications, and discharge instructions Description: INTERVENTIONS 1. Complete learning assessment and assess knowledge base 2. Provide teaching at level of understanding 3. Provide teaching via preferred learning method(s) Outcome: Progressing Note: Evaluation of progress towards goal: Patient updated on plan of care. Patient's level of understanding assessed as appropriate. Problem: Discharge Planning Goal: Discharge to post-acute care, other facility, or home with appropriate resources Description: Patient's goal is: home INTERVENTIONS 1. Conduct assessment to determine patient/family and health care team treatment goals, and need for post-acute services based on payer coverage, community resources, and patient preferences, and barriers to discharge 2. Coordinate with Social work, Care Navigation, and Utilization Review to arrange appropriate level of services according to patient's needs based on patient preference and payer coverage in collaboration with the physician and health care team 3. Address psychosocial, clinical, and financial barriers to discharge as identified in assessment in conjunction with the patient/family and health care team 4. Consult appropriate ancillary services (i.e.. PT/OT/ST, etc) as needed 5. Communicate with and update the patient/family, physician, and health care team regarding progress on the discharge plan 6. Identify discharge learning needs (meds, wound care, etc). 7. Arrange for needed discharge transportation as appropriate Outcome: Progressing Note: Evaluation of progress towards goal: Discharge Planning is in progress at this time. Plan remains to:Home Problem: Moderate - High Risk Fall Score Description: Bell Fall Score of =/> 25 or indicated by [facility] Assessment Goal: Patient should be free from fall Description: Interventions: 1. [place] to environment 2. Hourly rounds addressing the 4 P's (Pain, Positioning, Possessions, Potty) 3. Clear area of hazards (spills, clutter, electrical cords, unnecessary equipment) 4. Place equipment (bed & TV controls, call light, phone, urinal) within reach 5. Encourage patient to wear glasses and hearing aides as appropriate 6. Maintain bed in lowest position 7. Lock wheels on bed/wheelchair 8. Provide adequate lighting, including night light 9. Assess need for additional bedding, food/fluids, pain med's prior to sleep/routinely 10. Provide gripper slippers or personal non-skid footwear 11. Teach patient and patient customer account representative to maintain environment for safety and engage in all aspects of fall prevention program 12. Remind patient to call for help before getting out of bed 13. Initiate bed/chair/exit alarms supportive devices as appropriate, (chair wedge, no-skid floor mat, raised edge mattress, hip protectors) 14. Locate patient bed assignment for optimal visualization 15. Evaluate and identify Safe Patient Handling Equipment needs 16. Provide supervision when out of bed or chair 17. Utilize gait belt as needed to assist with ambulation 18. Place adaptive equipment (cane, walker) within reach 19. Request patient customer account representative bring adaptive equipment/mobility aids from home or obtain and provide as needed 20. Consult pharmacy regarding effects of med's affecting mobility, cognition, and alternatives 21. Obtain physician order for PT if risk factors associated with mobility are present 22. Obtain physician order for OT as appropriate 23. Utilize diversional activities 24. Educate patient and patient customer account representative how to maintain a safe environment during visitationtimes (notify nurse prior to leaving bedside) 25. Consider appropriateness of medical or non-bilingual medical assistant 26. Set up voiding schedule as appropriate (every 2 hours) Outcome: Progressing Note: Evaluation of progress towards goal: Pt will be free from falls this admission. High risk Fall scale interventions in place. Problem: Potential for Compromised Skin Integrity Goal: Skin integrity is maintained or improved Description: Patient's goal is: INTERVENTIONS 1. Perform initial skin assessment on admission and as needed 2. Turn patient every 2 hours and PRN 3. Relieve pressure to bony prominences 4. Avoid shearing 5. Keep skin clean and dry 6. Alternate a full bath with partial baths for elderly 7. Apply lotion/moisturizer on skin 8. Monitor patient's hygiene practices 9. Float heels 10. Collaborate with interdisciplinary team and initiate plans and interventions as needed Outcome: Progressing Note: Evaluation of progress towards goal: Pt assessed for skin breakdown. Repositioned every 2 hours and bony prominences padded. Will continue to monitor. Goal: Patient's nutritional intake is adequate Description: Patient's goal is: INTERVENTIONS 1. Assess and monitor food intake and supplements, patient food preferences, nausea, vomiting, labs, oral cavity (gums, teeth, tongue, mucosa), proper denture fit, and cultural beliefs 2. Monitor for signs of hypoglycemia and hyperglycemia 3. Collaborate with interdisciplinary team and initiate plan and interventions as ordered 4. Monitor patient's weight 5. Assist patient with meals/food selection 6. Assist patient with eating 7. Allow adequate time for meals 8. Provide pleasant environment during mealtime 9. Increase social contact during mealtimes 10. Plan activities to conserve energy 11. Encourage/perform oral hygiene as appropriate 12. Encourage patient to take dietary supplement as ordered 13. Collaborate with clinical court monitor 14. Include patient/ patient's customer account representative in decisions related to nutrition Outcome: Progressing Note: Evaluation of progress towards goal: Patient tolerating regular diet with adequate intake. Patient is monitored for changes in appetite as appropriate. Patient denies any nausea with meals. Problem: Urinary Incontinence Goal: Perineal skin integrity is maintained or improved Description: INTERVENTIONS 1. Assess genitourinary system, perineal skin, labs (urinalysis), and history of incontinence to include past management, aggravating, and alleviating factors 2. Keep skin clean and dry 3. Apply skin protectant 4. Develop skin care regimen 5. Provide privacy when changing patients incontinence device to maintain their dignity 6. Consider placing an indwelling catheter 7. Collaborate with interdisciplinary team and initiate plans and interventions as needed Outcome: Progressing Note: Evaluation of progress towards goal: Pts call remains patent throughout shift. Monitoring output q4 hrs. CHG Call care done qshift. .. Problem: Excessive Fluid Volume Goal: Fluid and electrolyte balance are achieved/maintained Description: INTERVENTIONS 1. Monitor vitals signs oxygen saturation, respiratory status to include rate, depth, effort, and lung sounds, ) urine color, labs, edema, jugular venous distention, and mental status 2. Monitor patient's weight 3. Monitor intake and output 4. Elevate head of bed 30 degrees 5. Turn patient 6. Monitor low sodium and fluid restriction diet per physician order 7. Collaborate with interdisciplinary team and initiate plan and interventions as ordered Outcome: Progressing Note: Evaluation of progress towards goal: pt on PO lasix at this time. Intake and output [id number] * Plan of Care - Juana Hurley RN - 03/13/2024 10:31 PM EST Problem: Pain Goal: Patient goal is pain score less than 4, able to rest, and participant in treatment plan as appropriate Description: INTERVENTIONS: 1. Encourage patient or legal customer account representative to report early pain and ask for pain medicine when needed 2. Assess pain using appropriate pain scale and include the scale used when documenting 3. Administer analgesics based on type and severity of pain and evaluate response within appropriate time frame 4. Implement non-pharmacological measures as appropriate and evaluate response 5. Consider cultural and social influences on pain and pain management 6. Notify LIP if interventions ineffective or patient reports new pain 7. Monitor vital signs including pulse ox, end-tidal CO2 based on pain intervention 8. Reassess pain per policy 9. Teach patient or legal customer account representative interventions for comforting Outcome: Progressing Note: Evaluation of progress towards goal: Patient's pain was assessed using the 0-10 adult pain scale. Patient has PRN pain medication available. Will continue to monitor for duration of shift. Problem: Infection Goal: Absence of infection during hospitalization Description: INTERVENTIONS 1. Assess and monitor for signs and symptoms of infection. 2. Monitor lab/diagnostic results. 3. Monitor all insertion sites i.e., indwelling lines, tubes and drains. 4. Monitor endotracheal (as able) and nasal secretions for changes in amount and color. 5. Administer medications as ordered. 6. Instruct and encourage patient and family to use good hand hygiene technique. 7. Identify and instruct patient/patient customer account representative in use of appropriate isolation precautionsfor identified infection/symptoms. 8. Provide and discuss with patient/patient customer account representative on educational MDRO sheet. 9. Encourage and monitor nutritional status daily and consult court monitor if indicated. 10. Implement neutropenic guidelines as needed. Outcome: Progressing Note: Evaluation of progress towards goal: Labs monitored. Patient afebrile, VSS. No changes noted.Will continue to monitor for duration of shift. Problem: Moderate - High Risk Fall Score Description: Bell Fall Score of =/> 25 or indicated by [facility] Assessment Goal: Patient should be free from fall Description: Interventions: 1. [place] to environment 2. Hourly rounds addressing the 4 P's (Pain, Positioning, Possessions, Potty) 3. Clear area of hazards (spills, clutter, electrical cords, unnecessary equipment) 4. Place equipment (bed & TV controls, call light, phone, urinal) within reach 5. Encourage patient to wear glasses and hearing aides as appropriate 6. Maintain bed in lowest position 7. Lock wheels on bed/wheelchair 8. Provide adequate lighting, including night light 9. Assess need for additional bedding, food/fluids, pain med's prior to sleep/routinely 10. Provide gripper slippers or personal non-skid footwear 11. Teach patient and patient customer account representative to maintain environment for safety and engage in all aspects of fall prevention program 12. Remind patient to call for help before getting out of bed 13. Initiate bed/chair/exit alarms supportive devices as appropriate, (chair wedge, no-skid floor mat, raised edge mattress, hip protectors) 14. Locate patient bed assignment for optimal visualization 15. Evaluate and identify Safe Patient Handling Equipment needs 16. Provide supervision when out of bed or chair 17. Utilize gait belt as needed to assist with ambulation 18. Place adaptive equipment (cane, walker) within reach 19. Request patient customer account representative bring adaptive equipment/mobility aids from home or obtain and provide as needed 20. Consult pharmacy regarding effects of med's affecting mobility, cognition, and alternatives 21. Obtain physician order for PT if risk factors associated with mobility are present 22. Obtain physician order for OT as appropriate 23. Utilize diversional activities 24. Educate patient and patient customer account representative how to maintain a safe environment during visitationtimes (notify nurse prior to leaving bedside) 25. Consider appropriateness of medical or non-bilingual medical assistant 26. Set up voiding schedule as appropriate (every 2 hours) Outcome: Progressing Note: Evaluation of progress towards goal: Patient remains free from falls at this time. High fall risk interventions in place. Problem: Potential for Compromised Skin Integrity Goal: Skin integrity is maintained or improved Description: Patient's goal is: INTERVENTIONS 1. Perform initial skin assessment on admission and as needed 2. Turn patient every 2 hours and PRN 3. Relieve pressure to bony prominences 4. Avoid shearing 5. Keep skin clean and dry 6. Alternate a full bath with partial baths for elderly 7. Apply lotion/moisturizer on skin 8. Monitor patient's hygiene practices 9. Float heels 10. Collaborate with interdisciplinary team and initiate plans and interventions as needed Outcome: Progressing Note: Evaluation of progress towards goal: Patient encouraged to reposition every 2 hours to maintain skin integrity. Will continue to monitor for duration of shift. Problem: Safety Goal: Patient will be injury free during hospitalization Description: INTERVENTIONS: 1. Assess patient's risk for falls and implement fall prevention plan of care per policy 2. Provide and maintain a safe environment 3. Proper use of double Identifiers 4. Medication administration using the 5 rights 5. Hand hygiene 6. Specimens are labeled at the bedside 7. Instruct patient/ patient customer account representative about use of safety devices 8. Include patient/ patient customer account representative in decisions related to safety Note: Evaluation of progress towards goal: Patient remains free from falls or injury at this time. Patient in bed at lowest position, wheels locked, 2/4 side rails up, personal items and call light within reach. Will continue to monitor patient safety for duration of shift. * PT/OT/RESEARCH TEST ENGINE OPERATOR - Rhys Pierce, PT - 03/13/2024 10:29 AM EST Physical Therapy Evaluation Discharge Recommendations PT Recommendations: Home Home Recommendations: Intermittent caregiver support for: Forestry Engineer Support for-: ADL Deficits 6 Clicks: Basic Mobility Turning from your back to your side while in a flat bed without using bed rails?: None Moving from lying on your back to sitting on side of flat bed without using bed rails?: A little Moving to and from bed to a chair (including w/c)?: A little Standing up from a chair using your arms (e.g. w/c or bedside chair)?: A little To walk in hospital room?: A little Climbing 3-5 steps with a railing?: A little Scoring 6 Clicks: Basic Mobility Raw Score: 19 CMS G Code Modifier: CJ Therapy Plan Need for skilled Physical Therapy to address deficits in functional mobility due to a status decline resulting from admission to [facility]SH 03/08 with c/o syncopal event at home, unwitnessed. Recent admission Nov 2023 with dx burst fracture T12, planned surgery end february per EMR. Pt admission with c/o nausea, vomiting, diarrhea and increasing weakness (+) UTI, CRISTINE, septic shock 03/09 pt underwent cystoscopy, placement of ureteral stent PT Treatment/Interventions: Functional transfer training, ADL retraining, LE strengthening/ROM, Endurance training, Patient/family training, Equipment eval/education, Balance, Bed mobility, Gait training, Functional activities PT Frequency: 4-5days/week PT Duration: length of stay Patient Response to Treatment: Tolerated evaluation without adverse reaction Past Medical History: Diagnosis Date [place] [place] Anxiety disorder Chronic back pain Chronic obstructive asthma with exacerbation [place] [place]) COPD [place]chronic obstructive pulmonary disease) [place] Diabetes mellitus type 2, controlled [place] Essential hypertension Folate deficiency anemia Heart failure [place] Hypotension 11/22/2023 Megaloblastic anemia [place] (myocardial infarction) [place] 06/2023 Muscle weakness (generalized) Myocardial infarct [place] Obesity Obstructive sleep apnea SARAH (obstructive sleep apnea) Pancytopenia [place] Presence of coronary artery bypass graft stent Shock ([facility]) 10/05/2023 Supplemental oxygen dependent Past Surgical History: Procedure Laterality Date CARDIAC SURGERY X2 CYSTOSCOPY INSERTION STENT URETER LT Left 03/09/2024 Performed by Henna Beasley MD at [facility] Transcutaneous aortic valve replacement/Transfemoral/Carpenter N/A 11/25/2023 Performed by Henrietta Arias MD at [facility] CARDIAC CATH LABS Assessment Patient Assessment Therapy Problem List: Decreased ADL status, Decreased balance, Decreased endurance, Decreased high-level ADLs, Decreased safe judgement during ADL, Decreased mobility, Decreased LE strength Patient Response to Treatment: Tolerated evaluation without adverse reaction Mood/Affect: Appropriate for circumstances Rehab Prognosis: Good, With continued PT status post acute discharge Visit RN Communication: Yes Medical Record Reviewed: Yes PT Type of Visit: Evaluation Precautions Activity: early mobility / pass Equipment: RW, gait belt Telemetry/Lawn Mower Operator: Yes Oxygen Used: 3L O2 per NC Other: fall risk, call, art line, chronic back pain Pain Assessment Pain Assessment: 0-10 Pain Score: 7 Pain Location: Back Pain Intervention(s): Repositioned, Ambulation/increased activity Response to Interventions: Pain unchanged, Quiet Home Living Type of Home: Mobile home Home Layout: One level Stairs to Enter: 3 Hand Rails: Bilateral Stairs in Home: none Bathroom Shower/Tub: Tub/shower unit Bathroom Toilet: Standard Bathroom Equipment: Grab bars in shower, Shower chair, Hand-held shower, Grab bars around toilet Home Equipment: Rolling walker, 4 Wheeled walker, Wheelchair-electric, Home oxygen (Home O2 at 3L) Other : Pt reports use of 4WW for limited ambulation (approx 10-15ft) with use of manual wheelchairfor majority of mobility. Prior Function Lives With: Alone Receives Help From: Other (Comment) (Pt has Passport services every other week. Pt reports he feelsthe services are worthless.) Level of Mobility: Independent with ADLs and functional transfers or gait Homemaking Assistance: Independent Vocational: Retired (pt states he is retired from the [employer]) Other: Pt admits to one fall prior to admission, I collapsed in my wheelchair ADL / IADL Hand Dominance: Left Hearing / Speech / Vision Hearing: Hard of hearing/hearing concerns Speech: Within Functional Limits Current Vision: Wears glasses only for reading Cognition Overall Cognitive Status: Within Functional Limits Sensation Overall Sensation Status: (pt denies numbness / tingling) Bed Mobility Supine to Sit: Min assist, Left Sit to Supine: (not assesed, pt remained up in chair with call light in reach) Other: Assist to elevate trunk with cues to maximize patient independence Transfers Sit to Stand: Contact guard assist Stand to Sit: Contact guard assist Other: cues for safety and proper hand placement, assist for line management in ICU setting Gait Base of Support: Within Functional Limits Pattern: Decreased ramin, R Decreased foot clearance, L Decreased foot clearance Gait Assistance: Contact guard assist Assistive Device: Rolling walker Gait Distance: 3ft to chair Other: distance limited by ICU setting, pt stood additional minute with bilat UE support before needing to sit due to weakness/ fatigue Balance Sitting Balance: Static: Good Sitting Balance: Dynamic: Fair Standing Balance: Static: Fair Standing Balance: Dynamic: Fair ((-)) Other: standing balance with bilat UE support RLE Assessment: (generalized weakness, 4/5 throughout) LLE Assessment: (generalized weakness, 4/5 throughout) Activity Tolerance Endurance: Tolerates <30 minutes activity WITHOUT vital sign changes Plan Physical Therapy Care Plan Physical Therapy Care Plan (Active) Template: PT - Physical Therapy Problem: Activity Tolerance Dates: Start: 03/13/24 Disciplines: PT Goal: Tolerate > 30 minutes of activity WITH rest breaks Dates: Start: 03/13/24 Expected End: 04/02/24 Description: Goal Description: Patient to perform functional range / strength exercises to improve functional strength, balance and activity tolerance for improved independence and safety with mobility. Disciplines: PT Problem: Bed Mobility Dates: Start: 03/13/24 Disciplines: PT Goal: Patient will perform bed mobility with Modified Giles Dates: Start: 03/13/24 Expected End: 04/02/24 Description: Goal Description: Disciplines: PT Problem: Gait Dates: Start: 03/13/24 Disciplines: PT Goal: Patient will perform gait with Contact Guard Dates: Start: 03/13/24 Expected End: 04/02/24 Description: With__RW__,__250__feet Goal Description: Disciplines: PT Problem: Standing Balance Dates: Start: 03/13/24 Disciplines: PT Goal: Improve balance to good Dates: Start: 03/13/24 Expected End: 04/02/24 Description: Static Dynamic Disciplines: PT Problem: Transfers Dates: Start: 03/13/24 Disciplines: PT Goal: Patient will perform transfers with Contact Guard Dates: Start: 03/13/24 Expected End: 04/02/24 Description: Goal Description: Patient to perform mobility with good safety awareness. Disciplines: PT Physical Therapy Care Plan (Resolved) There are no resolved problems. Principal Problem: Acute renal failure (ARF) ([facility]) Active Problems: Gross hematuria Staghorn calculus * PT/OT/RESEARCH TEST ENGINE OPERATOR - Rosa Mernio OT/L - 03/13/2024 10:03 AM EST Occupational Therapy Evaluation Discharge Recommendations OT Recommendations : Home Home Recommendations: Intermittent caregiver support for: (from [facility] support) Therapy Plan Need for skilled Occupational Therapy to address deficits in ADL independence and functional mobility due to a status decline resulting from admission from OSH 03/08/24 due to nausea, vomiting, diarrhea and weakness. Pt has history of frequent admissions with UTIs and use of 3 L oxygen at home due to COPD. CT A/P - nonobstructive bilateral renal stones 03/09 cystoscopy - ureteral stent placed and dilation Diagnosed with UTI, septic shock, anemia, CRISTINE Pt lives alone at home and is requesting [facility] aide assist Pt has a history of chronic back pain and reports limited walking distance with 4WW and use of manual w/c for long distance. 6 Clicks: Daily Activity Putting on and taking off regular lower body clothing?: A little Bathing (including washing, rinsing, drying)?: A little Toileting, which includes using toilet, bedpan or urinal?: A little Putting on and taking off regular upper body clothing?: A little Taking care of personal grooming such as brushing teeth?: A little Eating meals?: None Scoring Daily Activity Raw Score: 19 [facility] G Code Modifier: CK Past Medical History: Diagnosis Date Acute coronary syndrome [place] Anxiety disorder Chronic back pain Chronic obstructive asthma with exacerbation [place]) COPD (chronic obstructive pulmonary disease) [place] Diabetes mellitus type 2, controlled [place] Essential hypertension Folate deficiency anemia Heart failure [place] Hypotension 11/22/2023 Megaloblastic anemia VT (myocardial infarction) [place] 06/2023 Muscle weakness (generalized) Myocardial infarct [place] Obesity Obstructive sleep apnea SARAH (obstructive sleep apnea) Pancytopenia [place] Presence of coronary artery bypass graft stent Shock ([facility] 10/05/2023 Supplemental oxygen dependent Past Surgical History: Procedure Laterality Date CARDIAC SURGERY X2 CYSTOSCOPY INSERTION STENT URETER LT Left 03/09/2024 Performed by Henna Beasley MD at [facility] Transcutaneous aortic valve replacement/Transfemoral/Carpenter N/A 11/25/2023 Performed by Henrietta Arias MD at [facility] CARDIAC CATH LABS No chief complaint on file. OT Treatment/Interventions: ADL retraining, Functional transfer training, UE strengthening/ROM, Endurance training, Patient/family training, Balance, Bed mobility, Compensatory technique education, Functional activities OT Frequency: 4-5days/week OT Duration: LOS Assessment Patient Assessment Therapy Problem List: Decreased ADL status, Decreased balance, Decreased endurance, Decreased fine motor, Decreased gross motor, Decreased high-level ADLs, Decreased mobility, Decreased safe judgement during ADL, Decreased self- care trans, Decreased UE strength Patient Response to Treatment: Tolerated evaluation without adverse reaction Mood/Affect: Appropriate for circumstances Rehab Prognosis: Good Visit RN Communication: Yes Medical Record Reviewed: Yes OT Type of Visit: Evaluation Precautions Activity: early mobility pass Equipment: gait belt, RW Telemetry/Lawn Mower Operator: Yes Oxygen Used: 3 L Other: fall risk, call, art line, chronic back pain Pain Assessment Pain Assessment: 0-10 Pain Score: 7 Observed Behavior: Calm Pain Location: Back Pain Intervention(s): Repositioned, Ambulation/increased activity Response to Interventions: Quiet (no complaints of back pain with activity) Pain 2 Observed Behavior: Calm Home Living Type of Home: Mobile home Home Layout: One level Stairs to Enter: 3 Hand Rails: Bilateral Stairs in Home: 0 Bathroom Shower/Tub: Tub/shower unit Bathroom Toilet: Standard Bathroom Equipment: Grab bars in shower, Shower chair, Hand-held shower, Grab bars around toilet Home Equipment: Rolling walker, 4 Wheeled walker, Wheelchair-electric, Home oxygen (3 L) Other : pt reports limited walking distance to 10-15 feet with 4 WW due to back pain, use of manualw/c for longer distances Prior Function Lives With: Alone Receives Help From: (no support) Level of Mobility: Independent with ADLs and functional transfers or gait (with AD for mobility) Homemaking Assistance: Independent Other: one fall prior to admit ADL / IADL Hand Dominance: Left Eating Assistance: Independent Grooming Assistance: Setup Bathing/Showering Assistance: Contact guard assist Toilet/Commode Assistance: Contact guard assist UE Dressing Assistance: Contact guard assist LE Dressing Assistance: Contact guard assist Other: limited mobility due to art line, pt moves well with no reports of pain and support of RW. Above levels gathered from clinical judgement and functional activity completed Hearing / Speech / Vision Hearing: Hard of hearing/hearing concerns Speech: Within Functional Limits Current Vision: Wears glasses only for reading Cognition Overall Cognitive Status: Within Functional Limits Sensation Overall Sensation Status: Within Functional Limits Bed Mobility Supine to Sit: Stand by assist (HOB elevated) Sit to Supine: (up to recliner at end of session with call light) Other: good sitting balance at EOB Transfers Sit to Stand: Contact guard assist Stand to Sit: Contact guard assist Other: use of RW Gait Gait Assistance: Contact guard assist Assistive Device: Rolling walker Gait Distance: 3 feet to recliner Other: limited due to art line Balance Sitting Balance: Static: Good Sitting Balance: Dynamic: Fair Standing Balance: Static: Fair Standing Balance: Dynamic: Fair Other: BUE support on RW RUE Assessment: Within Functional Limits LUE Assessment: Within Functional Limits Activity Tolerance Endurance: Tolerates <30 minutes activity WITHOUT vital sign changes Other: tolerated well Plan Occupational Therapy Care Plan Occupational Therapy Care Plan (Active) Template: OT - Occupational Therapy Problem: Activity Tolerance Dates: Start: 03/13/24 Disciplines: OT Goal: Tolerate > 30 minutes of activity WITHOUT rest breaks Dates: Start: 03/13/24 Expected End: 04/06/24 Description: Goal Description: Disciplines: OT Problem: Bed Mobility Dates: Start: 03/13/24 Disciplines: OT Goal: Patient will perform bed mobility with Modified Giles Dates: Start: 03/13/24 Expected End: 04/06/24 Description: Goal Description: Disciplines: OT Problem: Functional Mobility Dates: Start: 03/13/24 Disciplines: OT Goal: Patient will perform functional mobility with Modified Giles Dates: Start: 03/13/24 Expected End: 04/06/24 Description: Goal Description: Disciplines: OT Problem: Other (Customize) Dates: Start: 03/13/24 Disciplines: OT Goal: Improve Dates: Start: 03/13/24 Expected End: 04/06/24 Description: Pt will complete all areas of ADL Tasks at Mod I with use of DME as needed and good safety awareness Disciplines: OT Problem: Sitting Balance Dates: Start: 03/13/24 Disciplines: OT Goal: Improve balance to normal Dates: Start: 03/13/24 Expected End: 04/06/24 Description: Static Dynamic Disciplines: OT Problem: Standing Balance Dates: Start: 03/13/24 Disciplines: OT Goal: Improve balance to normal Dates: Start: 03/13/24 Expected End: 04/06/24 Description: Static Dynamic Disciplines: OT Problem: Strength Dates: Start: 03/13/24 Disciplines: OT Goal: Improve strength Dates: Start: 03/13/24 Expected End: 04/06/24 Description: Pt will tolerate BUE HEP to progress stamina to care for self Disciplines: OT Problem: Transfers Dates: Start: 03/13/24 Disciplines: OT Goal: Patient will perform transfers with Modified Giles Dates: Start: 03/13/24 Expected End: 04/06/24 Description: Goal Description: Disciplines: OT Occupational Therapy Care Plan (Resolved) There are no resolved problems. Principal Problem: Acute renal failure (ARF) ([facility]) Active Problems: Gross hematuria Staghorn calculus * Plan of Care - Ailyn Wiseman RN - 03/13/2024 8:43 AM EST Problem: Pain Goal: Patient goal is pain score less than 4, able to rest, and participant in treatment plan as appropriate Description: INTERVENTIONS: 1. Encourage patient or legal customer account representative to report early pain and ask for pain medicine when needed 2. Assess pain using appropriate pain scale and include the scale used when documenting 3. Administer analgesics based on type and severity of pain and evaluate response within appropriate time frame 4. Implement non-pharmacological measures as appropriate and evaluate response 5. Consider cultural and social influences on pain and pain management 6. Notify LIP if interventions ineffective or patient reports new pain 7. Monitor vital signs including pulse ox, end-tidal CO2 based on pain intervention 8. Reassess pain per policy 9. Teach patient or legal customer account representative interventions for comforting Note: Evaluation of progress towards goal: Patient has PRN pain medication. Checking with every assessment. Monitoring vitals. Problem: Safety Goal: Patient will be injury free during hospitalization Description: INTERVENTIONS: 1. Assess patient's risk for falls and implement fall prevention plan of care per policy 2. Provide and maintain a safe environment 3. Proper use of double Identifiers 4. Medication administration using the 5 rights 5. Hand hygiene 6. Specimens are labeled at the bedside 7. Instruct patient/ patient customer account representative about use of safety devices 8. Include patient/ patient customer account representative in decisions related to safety Outcome: Progressing Note: Evaluation of progress towards goal: Patient safety maintained, call light in reach, area clear of hazards, hourly rounding continued, bed locked in lowest position, alarm on as applicable, nonskid socks on, safety educated completed with patient/family, no injuries noted at this time. Problem: Infection Goal: Absence of infection during hospitalization Description: INTERVENTIONS 1. Assess and monitor for signs and symptoms of infection. 2. Monitor lab/diagnostic results. 3. Monitor all insertion sites i.e., indwelling lines, tubes and drains. 4. Monitor endotracheal (as able) and nasal secretions for changes in amount and color. 5. Administer medications as ordered. 6. Instruct and encourage patient and family to use good hand hygiene technique. 7. Identify and instruct patient/patient customer account representative in use of appropriate isolation precautionsfor identified infection/symptoms. 8. Provide and discuss with patient/patient customer account representative on educational MDRO sheet. 9. Encourage and monitor nutritional status daily and consult court monitor if indicated. 10. Implement neutropenic guidelines as needed. Outcome: Progressing Note: Evaluation of progress towards goal: Labs and vitals monitored as ordered. Medications administered as ordered. Patient remains free from infection at this time. Problem: Discharge Planning Goal: Discharge to post-acute care, other facility, or home with appropriate resources Description: Patient's goal is: INTERVENTIONS 1. Conduct assessment to determine patient/family and health care team treatment goals, and need for post-acute services based on payer coverage, community resources, and patient preferences, and barriers to discharge 2. Coordinate with Social work, Care Navigation, and Utilization Review to arrange appropriate level of services according to patient's needs based on patient preference and payer coverage in collaboration with the physician and health care team 3. Address psychosocial, clinical, and financial barriers to discharge as identified in assessment in conjunction with the patient/family and health care team 4. Consult appropriate ancillary services (i.e.. PT/OT/ST, etc) as needed 5. Communicate with and update the patient/family, physician, and health care team regarding progress on the discharge plan 6. Identify discharge learning needs (meds, wound care, etc). 7. Arrange for needed discharge transportation as appropriate Outcome: Progressing Note: Evaluation of progress towards goal: Patient and family are aware of plan of care and discharge plans. Will continue to monitor. * Plan of Care - Skyler Arceo RN - 03/13/2024 1:25 AM EST Problem: Pain Goal: Patient goal is pain score less than 4, able to rest, and participant in treatment plan as appropriate Description: INTERVENTIONS: 1. Encourage patient or legal customer account representative to report early pain and ask for pain medicine when needed 2. Assess pain using appropriate pain scale and include the scale used when documenting 3. Administer analgesics based on type and severity of pain and evaluate response within appropriate time frame 4. Implement non-pharmacological measures as appropriate and evaluate response 5. Consider cultural and social influences on pain and pain management 6. Notify LIP if interventions ineffective or patient reports new pain 7. Monitor vital signs including pulse ox, end-tidal CO2 based on pain intervention 8. Reassess pain per policy 9. Teach patient or legal customer account representative interventions for comforting Outcome: Progressing Note: Evaluation of progress towards goal: percocet x one this shift for c/o back pain Problem: Safety Goal: Patient will be injury free during hospitalization Description: INTERVENTIONS: 1. Assess patient's risk for falls and implement fall prevention plan of care per policy 2. Provide and maintain a safe environment 3. Proper use of double Identifiers 4. Medication administration using the 5 rights 5. Hand hygiene 6. Specimens are labeled at the bedside 7. Instruct patient/ patient customer account representative about use of safety devices 8. Include patient/ patient customer account representative in decisions related to safety Outcome: Progressing Note: Evaluation of progress towards goal: no falls or injury Problem: Infection Goal: Absence of infection during hospitalization Description: INTERVENTIONS 1. Assess and monitor for signs and symptoms of infection. 2. Monitor lab/diagnostic results. 3. Monitor all insertion sites i.e., indwelling lines, tubes and drains. 4. Monitor endotracheal (as able) and nasal secretions for changes in amount and color. 5. Administer medications as ordered. 6. Instruct and encourage patient and family to use good hand hygiene technique. 7. Identify and instruct patient/patient customer account representative in use of appropriate isolation precautionsfor identified infection/symptoms. 8. Provide and discuss with patient/patient customer account representative on educational MDRO sheet. 9. Encourage and monitor nutritional status daily and consult court monitor if indicated. 10. Implement neutropenic guidelines as needed. Outcome: Progressing Note: Evaluation of progress towards goal: wbc 5.9, afebrile Problem: Knowledge Deficit Goal: Patient/patient customer account representative demonstrates understanding of disease process, treatment plan,medications, and discharge instructions Description: INTERVENTIONS 1. Complete learning assessment and assess knowledge base 2. Provide teaching at level of understanding 3. Provide teaching via preferred learning method(s) Outcome: Progressing Note: Evaluation of progress towards goal: pt verbalizes understanding of POC Problem: Discharge Planning Goal: Discharge to post-acute care, other facility, or home with appropriate resources Description: Patient's goal is: INTERVENTIONS 1. Conduct assessment to determine patient/family and health care team treatment goals, and need for post-acute services based on payer coverage, community resources, and patient preferences, and barriers to discharge 2. Coordinate with Social work, Care Navigation, and Utilization Review to arrange appropriate level of services according to patient's needs based on patient preference and payer coverage in collaboration with the physician and health care team 3. Address psychosocial, clinical, and financial barriers to discharge as identified in assessment in conjunction with the patient/family and health care team 4. Consult appropriate ancillary services (i.e.. PT/OT/ST, etc) as needed 5. Communicate with and update the patient/family, physician, and health care team regarding progress on the discharge plan 6. Identify discharge learning needs (meds, wound care, etc). 7. Arrange for needed discharge transportation as appropriate Outcome: Progressing Note: Evaluation of progress towards goal: possible txo vs dc home Problem: Glucose Imbalance Goal: Clinical indication of glucose balance is achieved Description: Patient's goal is: INTERVENTIONS 1. Monitor blood glucose levels as ordered 2. Administer medications as ordered 3. Notify physician of ineffective treatment plan Outcome: Progressing Note: Evaluation of progress towards goal: bs wnl tonight Goal: Patient's discharge needs are met Description: Patient's goal is: INTERVENTIONS 1. Assess patient for self-management skills 2. Encourage participation in diabetes management 3. Identify potential discharge barriers on admission and throughout hospital stay 4. Involve patient/S.O. in discharge planning process 5. Communicate referral to music educator as appropriate 6. Communicate referral to court monitor as appropriate 7. Collaborate with case management/secondary social studies teacher for discharge needs Outcome: Progressing Note: Evaluation of progress towards goal: ? Home care? Problem: Moderate - High Risk Fall Score Description: Bell Fall Score of =/> 25 or indicated by [facility] Assessment Goal: Patient should be free from fall Description: Interventions: 1. [place] to environment 2. Hourly rounds addressing the 4 P's (Pain, Positioning, Possessions, Potty) 3. Clear area of hazards (spills, clutter, electrical cords, unnecessary equipment) 4. Place equipment (bed & TV controls, call light, phone, urinal) within reach 5. Encourage patient to wear glasses and hearing aides as appropriate 6. Maintain bed in lowest position 7. Lock wheels on bed/wheelchair 8. Provide adequate lighting, including night light 9. Assess need for additional bedding, food/fluids, pain med's prior to sleep/routinely 10. Provide gripper slippers or personal non-skid footwear 11. Teach patient and patient customer account representative to maintain environment for safety and engage in all aspects of fall prevention program 12. Remind patient to call for help before getting out of bed 13. Initiate bed/chair/exit alarms supportive devices as appropriate, (chair wedge, no-skid floor mat, raised edge mattress, hip protectors) 14. Locate patient bed assignment for optimal visualization 15. Evaluate and identify Safe Patient Handling Equipment needs 16. Provide supervision when out of bed or chair 17. Utilize gait belt as needed to assist with ambulation 18. Place adaptive equipment (cane, walker) within reach 19. Request patient customer account representative bring adaptive equipment/mobility aids from home or obtain and provide as needed 20. Consult pharmacy regarding effects of med's affecting mobility, cognition, and alternatives 21. Obtain physician order for PT if risk factors associated with mobility are present 22. Obtain physician order for OT as appropriate 23. Utilize diversional activities 24. Educate patient and patient customer account representative how to maintain a safe environment during visitationtimes (notify nurse prior to leaving bedside) 25. Consider appropriateness of medical or non-bilingual medical assistant 26. Set up voiding schedule as appropriate (every 2 hours) Outcome: Progressing Note: Evaluation of progress towards goal: no falls or injury Problem: Potential for Compromised Skin Integrity Goal: Skin integrity is maintained or improved Description: Patient's goal is: INTERVENTIONS 1. Perform initial skin assessment on admission and as needed 2. Turn patient every 2 hours and PRN 3. Relieve pressure to bony prominences 4. Avoid shearing 5. Keep skin clean and dry 6. Alternate a full bath with partial baths for elderly 7. Apply lotion/moisturizer on skin 8. Monitor patient's hygiene practices 9. Float heels 10. Collaborate with interdisciplinary team and initiate plans and interventions as needed Outcome: Progressing Note: Evaluation of progress towards goal:no apparent increased skin breakdown Goal: Patient's nutritional intake is adequate Description: Patient's goal is: INTERVENTIONS 1. Assess and monitor food intake and supplements, patient food preferences, nausea, vomiting, labs, oral cavity (gums, teeth, tongue, mucosa), proper denture fit, and cultural beliefs 2. Monitor for signs of hypoglycemia and hyperglycemia 3. Collaborate with interdisciplinary team and initiate plan and interventions as ordered 4. Monitor patient's weight 5. Assist patient with meals/food selection 6. Assist patient with eating 7. Allow adequate time for meals 8. Provide pleasant environment during mealtime 9. Increase social contact during mealtimes 10. Plan activities to conserve energy 11. Encourage/perform oral hygiene as appropriate 12. Encourage patient to take dietary supplement as ordered 13. Collaborate with clinical court monitor 14. Include patient/ patient's customer account representative in decisions related to nutrition Outcome: Progressing Note: Evaluation of progress towards goal: tolerates po well, loose stools frequent Problem: Urinary Incontinence Goal: Perineal skin integrity is maintained or improved Description: INTERVENTIONS 1. Assess genitourinary system, perineal skin, labs (urinalysis), and history of incontinence to include past management, aggravating, and alleviating factors 2. Keep skin clean and dry 3. Apply skin protectant 4. Develop skin care regimen 5. Provide privacy when changing patients incontinence device to maintain their dignity 6. Consider placing an indwelling catheter 7. Collaborate with interdisciplinary team and initiate plans and interventions as needed Outcome: Progressing Note: Evaluation of progress towards goal: intact Problem: Readmission Risk Reduction Goal: Readmission Risk Assessment Description: Utilize readmission risk score in the development of discharge plan INTERVENTIONS: 1. Discuss patient's risk of readmission at multidisciplinary discharge transition rounds. 2. Comprehensive assessment of patient's risk of readmission (functional, psychosocial, cognitive). 3. Collaborate with patient / caregiver to identify needs. 4. Handoff to next level of care provider (home health care coordinator, PCP, home care). 5. Complete follow up phone call within 72 hours. Outcome: Progressing Note: Evaluation of progress towards goal: high risk readmit Goal: Discharge Medication Plan Description: Develop a plan to ensure that medications are obtained at the time of discharge INTERVENTIONS: 1. Utilize outpatient pharmacy to deliver medications to patient prior to discharge, where available. 2. Ensure that prescriptions are sent to the patient's pharmacy of choice prior to patient leaving the hospital. If possible, confirm authorizations and co-pays and communicate to patient. 3. During discharge follow-up phone call, confirm that prescriptions have been filled. Outcome: Progressing Note: Evaluation of progress towards goal: dc tomorrow? Goal: Follow-Up Appointments Description: Schedule patient-centric follow-up appointments prior to discharge INTERVENTIONS: 1. Identify recommended / appropriate timeframes for follow-up. 2. Discuss transportation needs and scheduling preferences with patient. 3. Verify that all follow-up appointments are scheduled prior to discharge. Outcome: Progressing Note: Evaluation of progress towards goal: home am? Goal: Discharge Medication Reconciliation Description: Review discharge medication reconciliation for accuracy INTERVENTIONS: 1. Include last dose date / time on the discharge medication list. 2. Utilize available resources to identify and address issues. 3. Consider use of a Discharge Time-Out or Discharge Final Check. 4. Refer to homecare, as appropriate, for home medication review. Outcome: Progressing Note: Evaluation of progress towards goal: . Goal: Discharge Instructions Description: Provide accurate and complete discharge instructions, taking into account health literacy of the patient INTERVENTIONS: 1. Assess patient's learning needs including health literacy. 2. Provide disease-specific education as appropriate. 3. Consider use of teach-back to verify patient / caregiver understanding. 4. Verify understanding of discharge instructions. 5. Consider use of a Discharge Time-Out or Discharge Final-Check. Outcome: Progressing Note: Evaluation of progress towards goal: * Discharge Planning Note - NICHOLAS Vital - 03/12/2024 4:19 PM EST DISCHARGE PLANNING NOTE DC plan currently is home self care, family support. Awaiting therapy to [facility]. On IV atb, await final ID plan, monitor hbg - NICHOLAS Vital 03/12/24 4:20 PM * Plan of Care - Kelsie Arnett RN - 03/12/2024 8:17 AM EST Problem: Pain Goal: Patient goal is pain score less than 4, able to rest, and participant in treatment plan as appropriate Description: INTERVENTIONS: 1. Encourage patient or legal customer account representative to report early pain and ask for pain medicine when needed 2. Assess pain using appropriate pain scale and include the scale used when documenting 3. Administer analgesics based on type and severity of pain and evaluate response within appropriate time frame 4. Implement non-pharmacological measures as appropriate and evaluate response 5. Consider cultural and social influences on pain and pain management 6. Notify LIP if interventions ineffective or patient reports new pain 7. Monitor vital signs including pulse ox, end-tidal CO2 based on pain intervention 8. Reassess pain per policy 9. Teach patient or legal customer account representative interventions for comforting Note: Patient will continue to be monitored every hour for pain increase and as needed after receiving medications for pain. Problem: Safety Goal: Patient will be injury free during hospitalization Description: INTERVENTIONS: 1. Assess patient's risk for falls and implement fall prevention plan of care per policy 2. Provide and maintain a safe environment 3. Proper use of double Identifiers 4. Medication administration using the 5 rights 5. Hand hygiene 6. Specimens are labeled at the bedside 7. Instruct patient/ patient customer account representative about use of safety devices 8. Include patient/ patient customer account representative in decisions related to safety Note: Patient resting comfortably in bed. Bed in lowest position, wheels locked and call light within reach. Problem: Infection Goal: Absence of infection during hospitalization Description: INTERVENTIONS 1. Assess and monitor for signs and symptoms of infection. 2. Monitor lab/diagnostic results. 3. Monitor all insertion sites i.e., indwelling lines, tubes and drains. 4. Monitor endotracheal (as able) and nasal secretions for changes in amount and color. 5. Administer medications as ordered. 6. Instruct and encourage patient and family to use good hand hygiene technique. 7. Identify and instruct patient/patient customer account representative in use of appropriate isolation precautionsfor identified infection/symptoms. 8. Provide and discuss with patient/patient customer account representative on educational MDRO sheet. 9. Encourage and monitor nutritional status daily and consult court monitor if indicated. 10. Implement neutropenic guidelines as needed. Note: Patients vital signs and temperature will remain with in normal limits. Will continue to monitor vital signs hourly and temperature every 4 hours. Problem: Knowledge Deficit Goal: Patient/patient customer account representative demonstrates understanding of disease process, treatment plan,medications, and discharge instructions Description: INTERVENTIONS 1. Complete learning assessment and assess knowledge base 2. Provide teaching at level of understanding 3. Provide teaching via preferred learning method(s) Note: Patient will demonstrate an understanding of disease process, treatment plan, medications anddischarge instruction prior to leaving the floor / hospital. Problem: Discharge Planning Goal: Discharge to post-acute care, other facility, or home with appropriate resources Description: Patient's goal is: INTERVENTIONS 1. Conduct assessment to determine patient/family and health care team treatment goals, and need for post-acute services based on payer coverage, community resources, and patient preferences, and barriers to discharge 2. Coordinate with Social work, Care Navigation, and Utilization Review to arrange appropriate level of services according to patient's needs based on patient preference and payer coverage in collaboration with the physician and health care team 3. Address psychosocial, clinical, and financial barriers to discharge as identified in assessment in conjunction with the patient/family and health care team 4. Consult appropriate ancillary services (i.e.. PT/OT/ST, etc) as needed 5. Communicate with and update the patient/family, physician, and health care team regarding progress on the discharge plan 6. Identify discharge learning needs (meds, wound care, etc). 7. Arrange for needed discharge transportation as appropriate Note: Patient plans to be discharged home. Patient is not ready to be discharged at this time. Patient will continue to be monitored hourly and assessed for readiness to be discharged. Problem: Urinary Incontinence Goal: Perineal skin integrity is maintained or improved Description: INTERVENTIONS 1. Assess genitourinary system, perineal skin, labs (urinalysis), and history of incontinence to include past management, aggravating, and alleviating factors 2. Keep skin clean and dry 3. Apply skin protectant 4. Develop skin care regimen 5. Provide privacy when changing patients incontinence device to maintain their dignity 6. Consider placing an indwelling catheter 7. Collaborate with interdisciplinary team and initiate plans and interventions as needed Note: Patient will continue to maintain a call until it is no longer a necessity. Call will be cleansed with CHG once a shift and as needed with bowel movements. Call will remain in place until urology okays removal. * Plan of Care - Jackelyn Gomez RN - 03/11/2024 10:14 PM EST Problem: Pain Goal: Patient goal is pain score less than 4, able to rest, and participant in treatment plan as appropriate Description: INTERVENTIONS: 1. Encourage patient or legal customer account representative to report early pain and ask for pain medicine when needed 2. Assess pain using appropriate pain scale and include the scale used when documenting 3. Administer analgesics based on type and severity of pain and evaluate response within appropriate time frame 4. Implement non-pharmacological measures as appropriate and evaluate response 5. Consider cultural and social influences on pain and pain management 6. Notify LIP if interventions ineffective or patient reports new pain 7. Monitor vital signs including pulse ox, end-tidal CO2 based on pain intervention 8. Reassess pain per policy 9. Teach patient or legal customer account representative interventions for comforting Outcome: Progressing Note: Evaluation of progress towards goal: Pain <4 with prns Problem: Safety Goal: Patient will be injury free during hospitalization Description: INTERVENTIONS: 1. Assess patient's risk for falls and implement fall prevention plan of care per policy 2. Provide and maintain a safe environment 3. Proper use of double Identifiers 4. Medication administration using the 5 rights 5. Hand hygiene 6. Specimens are labeled at the bedside 7. Instruct patient/ patient customer account representative about use of safety devices 8. Include patient/ patient customer account representative in decisions related to safety Outcome: Progressing Note: Evaluation of progress towards goal: Injury free at this time Problem: Infection Goal: Absence of infection during hospitalization Description: INTERVENTIONS 1. Assess and monitor for signs and symptoms of infection. 2. Monitor lab/diagnostic results. 3. Monitor all insertion sites i.e., indwelling lines, tubes and drains. 4. Monitor endotracheal (as able) and nasal secretions for changes in amount and color. 5. Administer medications as ordered. 6. Instruct and encourage patient and family to use good hand hygiene technique. 7. Identify and instruct patient/patient customer account representative in use of appropriate isolation precautionsfor identified infection/symptoms. 8. Provide and discuss with patient/patient customer account representative on educational MDRO sheet. 9. Encourage and monitor nutritional status daily and consult court monitor if indicated. 10. Implement neutropenic guidelines as needed. Outcome: Progressing Note: Evaluation of progress towards goal: Free from signs of infection Problem: Knowledge Deficit Goal: Patient/patient customer account representative demonstrates understanding of disease process, treatment plan,medications, and discharge instructions Description: INTERVENTIONS 1. Complete learning assessment and assess knowledge base 2. Provide teaching at level of understanding 3. Provide teaching via preferred learning method(s) Outcome: Progressing Note: Evaluation of progress towards goal: Patient understanding of plan of care Problem: Potential for Compromised Skin Integrity Goal: Skin integrity is maintained or improved Description: Patient's goal is: INTERVENTIONS 1. Perform initial skin assessment on admission and as needed 2. Turn patient every 2 hours and PRN 3. Relieve pressure to bony prominences 4. Avoid shearing 5. Keep skin clean and dry 6. Alternate a full bath with partial baths for elderly 7. Apply lotion/moisturizer on skin 8. Monitor patient's hygiene practices 9. Float heels 10. Collaborate with interdisciplinary team and initiate plans and interventions as needed Outcome: Progressing Note: Evaluation of progress towards goal: Skin integrity is maintained at this time * Plan of Care - Kelsie Arnett RN - 03/11/2024 9:59 AM EST Problem: Pain Goal: Patient goal is pain score less than 4, able to rest, and participant in treatment plan as appropriate Description: INTERVENTIONS: 1. Encourage patient or legal customer account representative to report early pain and ask for pain medicine when needed 2. Assess pain using appropriate pain scale and include the scale used when documenting 3. Administer analgesics based on type and severity of pain and evaluate response within appropriate time frame 4. Implement non-pharmacological measures as appropriate and evaluate response 5. Consider cultural and social influences on pain and pain management 6. Notify LIP if interventions ineffective or patient reports new pain 7. Monitor vital signs including pulse ox, end-tidal CO2 based on pain intervention 8. Reassess pain per policy 9. Teach patient or legal customer account representative interventions for comforting Note: Patient will continue to be monitored every hour for pain increase and as needed after receiving medications for pain. Problem: Safety Goal: Patient will be injury free during hospitalization Description: INTERVENTIONS: 1. Assess patient's risk for falls and implement fall prevention plan of care per policy 2. Provide and maintain a safe environment 3. Proper use of double Identifiers 4. Medication administration using the 5 rights 5. Hand hygiene 6. Specimens are labeled at the bedside 7. Instruct patient/ patient customer account representative about use of safety devices 8. Include patient/ patient customer account representative in decisions related to safety Note: Patient resting comfortably in bed. Bed in lowest position, wheels locked and call light within reach. Problem: Infection Goal: Absence of infection during hospitalization Description: INTERVENTIONS 1. Assess and monitor for signs and symptoms of infection. 2. Monitor lab/diagnostic results. 3. Monitor all insertion sites i.e., indwelling lines, tubes and drains. 4. Monitor endotracheal (as able) and nasal secretions for changes in amount and color. 5. Administer medications as ordered. 6. Instruct and encourage patient and family to use good hand hygiene technique. 7. Identify and instruct patient/patient customer account representative in use of appropriate isolation precautionsfor identified infection/symptoms. 8. Provide and discuss with patient/patient customer account representative on educational MDRO sheet. 9. Encourage and monitor nutritional status daily and consult court monitor if indicated. 10. Implement neutropenic guidelines as needed. Note: Patients vital signs and temperature will remain with in normal limits. Will continue to monitor vital signs hourly and temperature every 4 hours. Problem: Knowledge Deficit Goal: Patient/patient customer account representative demonstrates understanding of disease process, treatment plan,medications, and discharge instructions Description: INTERVENTIONS 1. Complete learning assessment and assess knowledge base 2. Provide teaching at level of understanding 3. Provide teaching via preferred learning method(s) Note: Patient will demonstrate an understanding of disease process, treatment plan, medications anddischarge instruction prior to leaving the floor / hospital. Problem: Discharge Planning Goal: Discharge to post-acute care, other facility, or home with appropriate resources Description: Patient's goal is: INTERVENTIONS 1. Conduct assessment to determine patient/family and health care team treatment goals, and need for post-acute services based on payer coverage, community resources, and patient preferences, and barriers to discharge 2. Coordinate with Social work, Care Navigation, and Utilization Review to arrange appropriate level of services according to patient's needs based on patient preference and payer coverage in collaboration with the physician and health care team 3. Address psychosocial, clinical, and financial barriers to discharge as identified in assessment in conjunction with the patient/family and health care team 4. Consult appropriate ancillary services (i.e.. PT/OT/ST, etc) as needed 5. Communicate with and update the patient/family, physician, and health care team regarding progress on the discharge plan 6. Identify discharge learning needs (meds, wound care, etc). 7. Arrange for needed discharge transportation as appropriate Note: Patient plans to be discharged home with . Patient is not ready to be discharged at this time. Patient will continue to be monitored hourly and assessed for readiness to be discharged. Problem: Urinary Incontinence Goal: Perineal skin integrity is maintained or improved Description: INTERVENTIONS 1. Assess genitourinary system, perineal skin, labs (urinalysis), and history of incontinence to include past management, aggravating, and alleviating factors 2. Keep skin clean and dry 3. Apply skin protectant 4. Develop skin care regimen 5. Provide privacy when changing patients incontinence device to maintain their dignity 6. Consider placing an indwelling catheter 7. Collaborate with interdisciplinary team and initiate plans and interventions as needed Note: Patient will remain free form CAUTI. Call will be cleaned twice a shift and PRN. Skin integrity will be assessed Q 4 hours and will remain intact. * Plan of Care - Jackelyn Gomez RN - 03/10/2024 9:21 PM EST Problem: Pain Goal: Patient goal is pain score less than 4, able to rest, and participant in treatment plan as appropriate Description: INTERVENTIONS: 1. Encourage patient or legal customer account representative to report early pain and ask for pain medicine when needed 2. Assess pain using appropriate pain scale and include the scale used when documenting 3. Administer analgesics based on type and severity of pain and evaluate response within appropriate time frame 4. Implement non-pharmacological measures as appropriate and evaluate response 5. Consider cultural and social influences on pain and pain management 6. Notify LIP if interventions ineffective or patient reports new pain 7. Monitor vital signs including pulse ox, end-tidal CO2 based on pain intervention 8. Reassess pain per policy 9. Teach patient or legal customer account representative interventions for comforting Outcome: Progressing Note: Evaluation of progress towards goal: Pain 0 Problem: Safety Goal: Patient will be injury free during hospitalization Description: INTERVENTIONS: 1. Assess patient's risk for falls and implement fall prevention plan of care per policy 2. Provide and maintain a safe environment 3. Proper use of double Identifiers 4. Medication administration using the 5 rights 5. Hand hygiene 6. Specimens are labeled at the bedside 7. Instruct patient/ patient customer account representative about use of safety devices 8. Include patient/ patient customer account representative in decisions related to safety Outcome: Progressing Note: Evaluation of progress towards goal: Patient injury free at this time Problem: Infection Goal: Absence of infection during hospitalization Description: INTERVENTIONS 1. Assess and monitor for signs and symptoms of infection. 2. Monitor lab/diagnostic results. 3. Monitor all insertion sites i.e., indwelling lines, tubes and drains. 4. Monitor endotracheal (as able) and nasal secretions for changes in amount and color. 5. Administer medications as ordered. 6. Instruct and encourage patient and family to use good hand hygiene technique. 7. Identify and instruct patient/patient customer account representative in use of appropriate isolation precautionsfor identified infection/symptoms. 8. Provide and discuss with patient/patient customer account representative on educational MDRO sheet. 9. Encourage and monitor nutritional status daily and consult court monitor if indicated. 10. Implement neutropenic guidelines as needed. Outcome: Progressing Note: Evaluation of progress towards goal: Free from signs of infection Problem: Knowledge Deficit Goal: Patient/patient customer account representative demonstrates understanding of disease process, treatment plan,medications, and discharge instructions Description: INTERVENTIONS 1. Complete learning assessment and assess knowledge base 2. Provide teaching at level of understanding 3. Provide teaching via preferred learning method(s) Outcome: Progressing Note: Evaluation of progress towards goal: Patient understanding of plan of care. Needs reinforcement Problem: Moderate - High Risk Fall Score Description: Bell Fall Score of =/> 25 or indicated by [facility] Assessment Goal: Patient should be free from fall Description: Interventions: 1. [place] to environment 2. Hourly rounds addressing the 4 P's (Pain, Positioning, Possessions, Potty) 3. Clear area of hazards (spills, clutter, electrical cords, unnecessary equipment) 4. Place equipment (bed & TV controls, call light, phone, urinal) within reach 5. Encourage patient to wear glasses and hearing aides as appropriate 6. Maintain bed in lowest position 7. Lock wheels on bed/wheelchair 8. Provide adequate lighting, including night light 9. Assess need for additional bedding, food/fluids, pain med's prior to sleep/routinely 10. Provide gripper slippers or personal non-skid footwear 11. Teach patient and patient customer account representative to maintain environment for safety and engage in all aspects of fall prevention program 12. Remind patient to call for help before getting out of bed 13. Initiate bed/chair/exit alarms supportive devices as appropriate, (chair wedge, no-skid floor mat, raised edge mattress, hip protectors) 14. Locate patient bed assignment for optimal visualization 15. Evaluate and identify Safe Patient Handling Equipment needs 16. Provide supervision when out of bed or chair 17. Utilize gait belt as needed to assist with ambulation 18. Place adaptive equipment (cane, walker) within reach 19. Request patient customer account representative bring adaptive equipment/mobility aids from home or obtain and provide as needed 20. Consult pharmacy regarding effects of med's affecting mobility, cognition, and alternatives 21. Obtain physician order for PT if risk factors associated with mobility are present 22. Obtain physician order for OT as appropriate 23. Utilize diversional activities 24. Educate patient and patient customer account representative how to maintain a safe environment during visitationtimes (notify nurse prior to leaving bedside) 25. Consider appropriateness of medical or non-bilingual medical assistant 26. Set up voiding schedule as appropriate (every 2 hours) Outcome: Progressing Note: Evaluation of progress towards goal: Patient is free from falls at this time Problem: Potential for Compromised Skin Integrity Goal: Skin integrity is maintained or improved Description: Patient's goal is: INTERVENTIONS 1. Perform initial skin assessment on admission and as needed 2. Turn patient every 2 hours and PRN 3. Relieve pressure to bony prominences 4. Avoid shearing 5. Keep skin clean and dry 6. Alternate a full bath with partial baths for elderly 7. Apply lotion/moisturizer on skin 8. Monitor patient's hygiene practices 9. Float heels 10. Collaborate with interdisciplinary team and initiate plans and interventions as needed Outcome: Progressing Note: Evaluation of progress towards goal: Skin integrity is maintained at this time * Plan of Care - Madhavi Pérez MD - 03/10/2024 11:32 AM EST [facility] Transfer Accept Note I have received an initial request for transfer of primary service for this patient from the ICU team. Clinical handoff report was given. [facility] will assume care as primary team of this patient upon transfer out of the ICU. Madhavi Pérez MD * Plan of Care - Kelsie Arnett RN - 03/10/2024 8:04 AM EST Problem: Pain Goal: Patient goal is pain score less than 4, able to rest, and participant in treatment plan as appropriate Description: INTERVENTIONS: 1. Encourage patient or legal customer account representative to report early pain and ask for pain medicine when needed 2. Assess pain using appropriate pain scale and include the scale used when documenting 3. Administer analgesics based on type and severity of pain and evaluate response within appropriate time frame 4. Implement non-pharmacological measures as appropriate and evaluate response 5. Consider cultural and social influences on pain and pain management 6. Notify LIP if interventions ineffective or patient reports new pain 7. Monitor vital signs including pulse ox, end-tidal CO2 based on pain intervention 8. Reassess pain per policy 9. Teach patient or legal customer account representative interventions for comforting Note: Patient will continue to be monitored every hour for pain increase and as needed after receiving medications for pain. Problem: Safety Goal: Patient will be injury free during hospitalization Description: INTERVENTIONS: 1. Assess patient's risk for falls and implement fall prevention plan of care per policy 2. Provide and maintain a safe environment 3. Proper use of double Identifiers 4. Medication administration using the 5 rights 5. Hand hygiene 6. Specimens are labeled at the bedside 7. Instruct patient/ patient customer account representative about use of safety devices 8. Include patient/ patient customer account representative in decisions related to safety Note: Patient resting comfortably in bed. Bed in lowest position, wheels locked and call light within reach. Problem: Infection Goal: Absence of infection during hospitalization Description: INTERVENTIONS 1. Assess and monitor for signs and symptoms of infection. 2. Monitor lab/diagnostic results. 3. Monitor all insertion sites i.e., indwelling lines, tubes and drains. 4. Monitor endotracheal (as able) and nasal secretions for changes in amount and color. 5. Administer medications as ordered. 6. Instruct and encourage patient and family to use good hand hygiene technique. 7. Identify and instruct patient/patient customer account representative in use of appropriate isolation precautionsfor identified infection/symptoms. 8. Provide and discuss with patient/patient customer account representative on educational MDRO sheet. 9. Encourage and monitor nutritional status daily and consult court monitor if indicated. 10. Implement neutropenic guidelines as needed. Note: Patients vital signs and temperature will remain with in normal limits. Will continue to monitor vital signs hourly and temperature every 4 hours. Problem: Knowledge Deficit Goal: Patient/patient customer account representative demonstrates understanding of disease process, treatment plan,medications, and discharge instructions Description: INTERVENTIONS 1. Complete learning assessment and assess knowledge base 2. Provide teaching at level of understanding 3. Provide teaching via preferred learning method(s) Note: Patient will demonstrate an understanding of disease process, treatment plan, medications anddischarge instruction prior to leaving the floor / hospital. Problem: Discharge Planning Goal: Discharge to post-acute care, other facility, or home with appropriate resources Description: Patient's goal is: INTERVENTIONS 1. Conduct assessment to determine patient/family and health care team treatment goals, and need for post-acute services based on payer coverage, community resources, and patient preferences, and barriers to discharge 2. Coordinate with Social work, Care Navigation, and Utilization Review to arrange appropriate level of services according to patient's needs based on patient preference and payer coverage in collaboration with the physician and health care team 3. Address psychosocial, clinical, and financial barriers to discharge as identified in assessment in conjunction with the patient/family and health care team 4. Consult appropriate ancillary services (i.e.. PT/OT/ST, etc) as needed 5. Communicate with and update the patient/family, physician, and health care team regarding progress on the discharge plan 6. Identify discharge learning needs (meds, wound care, etc). 7. Arrange for needed discharge transportation as appropriate Note: Patient plans to be discharged home. Patient is not ready to be discharged at this time. Patient will continue to be monitored hourly and assessed for readiness to be discharged. Problem: Urinary Incontinence Goal: Perineal skin integrity is maintained or improved Description: INTERVENTIONS 1. Assess genitourinary system, perineal skin, labs (urinalysis), and history of incontinence to include past management, aggravating, and alleviating factors 2. Keep skin clean and dry 3. Apply skin protectant 4. Develop skin care regimen 5. Provide privacy when changing patients incontinence device to maintain their dignity 6. Consider placing an indwelling catheter 7. Collaborate with interdisciplinary team and initiate plans and interventions as needed Note: Patient will continue to maintain a call until it is no longer a necessity. Call will be cleansed with CHG once a shift and as needed with bowel movements. Call will remain in place until Urology clears him for call removal. * Plan of Care - Skyler Arceo RN - 03/10/2024 4:36 AM EST Problem: Pain Goal: Patient goal is pain score less than 4, able to rest, and participant in treatment plan as appropriate Description: INTERVENTIONS: 1. Encourage patient or legal customer account representative to report early pain and ask for pain medicine when needed 2. Assess pain using appropriate pain scale and include the scale used when documenting 3. Administer analgesics based on type and severity of pain and evaluate response within appropriate time frame 4. Implement non-pharmacological measures as appropriate and evaluate response 5. Consider cultural and social influences on pain and pain management 6. Notify LIP if interventions ineffective or patient reports new pain 7. Monitor vital signs including pulse ox, end-tidal CO2 based on pain intervention 8. Reassess pain per policy 9. Teach patient or legal customer account representative interventions for comforting Outcome: Progressing Note: Evaluation of progress towards goal: percocet x one this shift appears effctive Problem: Safety Goal: Patient will be injury free during hospitalization Description: INTERVENTIONS: 1. Assess patient's risk for falls and implement fall prevention plan of care per policy 2. Provide and maintain a safe environment 3. Proper use of double Identifiers 4. Medication administration using the 5 rights 5. Hand hygiene 6. Specimens are labeled at the bedside 7. Instruct patient/ patient customer account representative about use of safety devices 8. Include patient/ patient customer account representative in decisions related to safety Outcome: Progressing Note: Evaluation of progress towards goal: no falls or injury Problem: Infection Goal: Absence of infection during hospitalization Description: INTERVENTIONS 1. Assess and monitor for signs and symptoms of infection. 2. Monitor lab/diagnostic results. 3. Monitor all insertion sites i.e., indwelling lines, tubes and drains. 4. Monitor endotracheal (as able) and nasal secretions for changes in amount and color. 5. Administer medications as ordered. 6. Instruct and encourage patient and family to use good hand hygiene technique. 7. Identify and instruct patient/patient customer account representative in use of appropriate isolation precautionsfor identified infection/symptoms. 8. Provide and discuss with patient/patient customer account representative on educational MDRO sheet. 9. Encourage and monitor nutritional status daily and consult court monitor if indicated. 10. Implement neutropenic guidelines as needed. Outcome: Progressing Note: Evaluation of progress towards goal:wbc 7.2 afebrile Problem: Knowledge Deficit Goal: Patient/patient customer account representative demonstrates understanding of disease process, treatment plan,medications, and discharge instructions Description: INTERVENTIONS 1. Complete learning assessment and assess knowledge base 2. Provide teaching at level of understanding 3. Provide teaching via preferred learning method(s) Outcome: Progressing Note: Evaluation of progress towards goal: pt verbalizes understanding of POC Problem: Discharge Planning Goal: Discharge to post-acute care, other facility, or home with appropriate resources Description: Patient's goal is: INTERVENTIONS 1. Conduct assessment to determine patient/family and health care team treatment goals, and need for post-acute services based on payer coverage, community resources, and patient preferences, and barriers to discharge 2. Coordinate with Social work, Care Navigation, and Utilization Review to arrange appropriate level of services according to patient's needs based on patient preference and payer coverage in collaboration with the physician and health care team 3. Address psychosocial, clinical, and financial barriers to discharge as identified in assessment in conjunction with the patient/family and health care team 4. Consult appropriate ancillary services (i.e.. PT/OT/ST, etc) as needed 5. Communicate with and update the patient/family, physician, and health care team regarding progress on the discharge plan 6. Identify discharge learning needs (meds, wound care, etc). 7. Arrange for needed discharge transportation as appropriate Outcome: Progressing Note: Evaluation of progress towards goal: not ready for dc yet Problem: Glucose Imbalance Goal: Clinical indication of glucose balance is achieved Description: Patient's goal is: INTERVENTIONS 1. Monitor blood glucose levels as ordered 2. Administer medications as ordered 3. Notify physician of ineffective treatment plan Outcome: Progressing Note: Evaluation of progress towards goal: covered with insulin Goal: Patient's discharge needs are met Description: Patient's goal is: INTERVENTIONS 1. Assess patient for self-management skills 2. Encourage participation in diabetes management 3. Identify potential discharge barriers on admission and throughout hospital stay 4. Involve patient/S.O. in discharge planning process 5. Communicate referral to music educator as appropriate 6. Communicate referral to court monitor as appropriate 7. Collaborate with case management/secondary social studies teacher for discharge needs Outcome: Progressing Note: Evaluation of progress towards goal: not ready for dc yet Problem: Glucose Imbalance Goal: Patient's discharge needs are met Description: Patient's goal is: INTERVENTIONS 1. Assess patient for self-management skills 2. Encourage participation in diabetes management 3. Identify potential discharge barriers on admission and throughout hospital stay 4. Involve patient/S.O. in discharge planning process 5. Communicate referral to music educator as appropriate 6. Communicate referral to court monitor as appropriate 7. Collaborate with case management/secondary social studies teacher for discharge needs Outcome: Progressing Note: Evaluation of progress towards goal: not ready for dc yet Problem: Moderate - High Risk Fall Score Description: Bell Fall Score of =/> 25 or indicated by [facility] Assessment Goal: Patient should be free from fall Description: Interventions: 1. [place] to environment 2. Hourly rounds addressing the 4 P's (Pain, Positioning, Possessions, Potty) 3. Clear area of hazards (spills, clutter, electrical cords, unnecessary equipment) 4. Place equipment (bed & TV controls, call light, phone, urinal) within reach 5. Encourage patient to wear glasses and hearing aides as appropriate 6. Maintain bed in lowest position 7. Lock wheels on bed/wheelchair 8. Provide adequate lighting, including night light 9. Assess need for additional bedding, food/fluids, pain med's prior to sleep/routinely 10. Provide gripper slippers or personal non-skid footwear 11. Teach patient and patient customer account representative to maintain environment for safety and engage in all aspects of fall prevention program 12. Remind patient to call for help before getting out of bed 13. Initiate bed/chair/exit alarms supportive devices as appropriate, (chair wedge, no-skid floor mat, raised edge mattress, hip protectors) 14. Locate patient bed assignment for optimal visualization 15. Evaluate and identify Safe Patient Handling Equipment needs 16. Provide supervision when out of bed or chair 17. Utilize gait belt as needed to assist with ambulation 18. Place adaptive equipment (cane, walker) within reach 19. Request patient customer account representative bring adaptive equipment/mobility aids from home or obtain and provide as needed 20. Consult pharmacy regarding effects of med's affecting mobility, cognition, and alternatives 21. Obtain physician order for PT if risk factors associated with mobility are present 22. Obtain physician order for OT as appropriate 23. Utilize diversional activities 24. Educate patient and patient customer account representative how to maintain a safe environment during visitationtimes (notify nurse prior to leaving bedside) 25. Consider appropriateness of medical or non-bilingual medical assistant 26. Set up voiding schedule as appropriate (every 2 hours) Outcome: Progressing Note: Evaluation of progress towards goal: no falls or injury * Op Note - Henna Beasley MD - 03/09/2024 7:06 PM EST Date of Surgery: 03/09/2024 7:43 PM Name: Brian Mandel Surgeon: Henna Beasley MD Batch Operator: Dmitriy Ruiz MD Preoperative Diagnosis: left staghorn calculus Postoperative Diagnosis: same Procedure: Cystoscopy, left ureteral stent placement, difficult call catheter placement Anesthesia: MAC Complications: none Estimated Blood Loss: 0 ml Specimens: none Drains: L 6x22 ureteral stent without strings, 18 Fr um[place] tribe tip catheter Complications: none Findings: proctor-urethral stricture, phimosis Indication for procedure: Brian Mandel is a 73 y.o. male with left staghorn stone, signs of sepsis without obvious source. He is here today for cysto and left stent placement. Details of Procedure: After the procedure, risks, benefits and alternatives were explained to the patient they elected toproceed. Informed consent was obtained. They were brought back to the operative suite and placed guy supine position on the operative table. General anesthesia was induced. They were prepped and draped in a sterile fashion. They received IV Rocephin prior to the procedure. His phimotic foreskin was gently dilated with a hemostat. A 22 [place] rigid cystoscope with a 30 degree lens was inserted through the urethra. He had proctor urethral strictures starting in the distal bulbar urethra all the way to the membranous urethra. In several areas they were easily false passages. With the help of a wirewe are able to enter the bladder. We turned our attention to the left ureteral orifice and cannulated it with a wire. The wire was passed up into the kidney. We then passed a 6 x 22 ureteral stent without strings over the wire. The proximal end of the kidney and the distal end of the bladder neck the wire was removed. A good curl was visualized in the kidney and in the bladder. An 18 [place] tip c atheter was placed over the wire due to significant stricture disease. They were woken, extubated and transferred to the PACU in stable condition. I was present for all portions of the procedure. Plan: He will be transferred back to the ICU. will eventually need ureteroscopy or PCNL. * Discharge Planning Note - Pina Mullen - 03/09/2024 4:20 PM EST DISCHARGE PLANNING NOTE Unable to reach ppg to schedule, will try again later providing patient is still here. * Discharge Planning Note - NICHOLAS Portillo - 03/09/2024 1:24 PM EST Images from the original note were not included. DISCHARGE PLANNING NOTE SW met with patient introduced self and explained role. Patient admitting diagnosis: acute renal failure. Readmission risk: 30% Patient reports that he lives in a one story home alone with two steps to enter. DME: 2ww, wheelchair, O2- 3L has tanks and concentrator. PCP: None. SW tasked for new PCP appt [facility] Patient denies any difficulty affording food or medication. Patient denies any current tobacco, ETOH or illicit drug use. Patient discharge plan is to return home alone, self care. Patient reports that friend should be able to transport him home. - NICHOLAS PORTILLO 03/09/24 1:26 PM Services Requested: Services Requested Patient expects to be discharged to:: home Discharge Disposition: Home with self care Does the patient need discharge transportation arranged?: No Patient Goals: Patient/Caregiver Goals Patient/Caregiver Goals: Home No Needs Goals: Goals <enter goal here> (pt-stated) Evaluation of progress towards goal: Current Discharge Plan; home alone, self care. Tasked for new PCP appt Home with self care (pt-stated) Evaluation of progress towards goal: Home with self care. * Plan of Care - Tasia Pimentel RN - 03/09/2024 10:49 AM EST Problem: Pain Goal: Patient goal is pain score less than 4, able to rest, and participant in treatment plan as appropriate Description: INTERVENTIONS: 1. Encourage patient or legal customer account representative to report early pain and ask for pain medicine when needed 2. Assess pain using appropriate pain scale and include the scale used when documenting 3. Administer analgesics based on type and severity of pain and evaluate response within appropriate time frame 4. Implement non-pharmacological measures as appropriate and evaluate response 5. Consider cultural and social influences on pain and pain management 6. Notify LIP if interventions ineffective or patient reports new pain 7. Monitor vital signs including pulse ox, end-tidal CO2 based on pain intervention 8. Reassess pain per policy 9. Teach patient or legal customer account representative interventions for comforting Outcome: Progressing Note: Evaluation of progress towards goal: c/o chronic back pain. Supposed to have surgery later this month for it. Medicated for pain prn Problem: Safety Goal: Patient will be injury free during hospitalization Description: INTERVENTIONS: 1. Assess patient's risk for falls and implement fall prevention plan of care per policy 2. Provide and maintain a safe environment 3. Proper use of double Identifiers 4. Medication administration using the 5 rights 5. Hand hygiene 6. Specimens are labeled at the bedside 7. Instruct patient/ patient customer account representative about use of safety devices 8. Include patient/ patient customer account representative in decisions related to safety Outcome: Progressing Note: Evaluation of progress towards goal: free of injury at this time. Bed low/locked, SR up x3, call light in reach. Pt alert and oriented. Problem: Knowledge Deficit Goal: Patient/patient customer account representative demonstrates understanding of disease process, treatment plan,medications, and discharge instructions Description: INTERVENTIONS 1. Complete learning assessment and assess knowledge base 2. Provide teaching at level of understanding 3. Provide teaching via preferred learning method(s) Outcome: Progressing Note: Evaluation of progress towards goal: updated on POC w/ verbalized understanding. Questions answered. Problem: Discharge Planning Goal: Discharge to post-acute care, other facility, or home with appropriate resources Description: Patient's goal is: INTERVENTIONS 1. Conduct assessment to determine patient/family and health care team treatment goals, and need for post-acute services based on payer coverage, community resources, and patient preferences, and barriers to discharge 2. Coordinate with Social work, Care Navigation, and Utilization Review to arrange appropriate level of services according to patient's needs based on patient preference and payer coverage in collaboration with the physician and health care team 3. Address psychosocial, clinical, and financial barriers to discharge as identified in assessment in conjunction with the patient/family and health care team 4. Consult appropriate ancillary services (i.e.. PT/OT/ST, etc) as needed 5. Communicate with and update the patient/family, physician, and health care team regarding progress on the discharge plan 6. Identify discharge learning needs (meds, wound care, etc). 7. Arrange for needed discharge transportation as appropriate Outcome: Progressing Note: Evaluation of progress towards goal: no plans for d/c at this time. Weaning levo gtt. Problem: Glucose Imbalance Goal: Clinical indication of glucose balance is achieved Description: Patient's goal is: INTERVENTIONS 1. Monitor blood glucose levels as ordered 2. Administer medications as ordered 3. Notify physician of ineffective treatment plan Outcome: Progressing Note: Evaluation of progress towards goal: BG controlled on insulin SS Goal: Patient's discharge needs are met Description: Patient's goal is: INTERVENTIONS 1. Assess patient for self-management skills 2. Encourage participation in diabetes management 3. Identify potential discharge barriers on admission and throughout hospital stay 4. Involve patient/S.O. in discharge planning process 5. Communicate referral to music educator as appropriate 6. Communicate referral to court monitor as appropriate 7. Collaborate with case management/secondary social studies teacher for discharge needs Outcome: Progressing Note: Evaluation of progress towards goal: no plans for d/c at this time. Problem: Moderate - High Risk Fall Score Description: Bell Fall Score of =/> 25 or indicated by [facility] Assessment Goal: Patient should be free from fall Description: Interventions: 1. [place] to environment 2. Hourly rounds addressing the 4 P's (Pain, Positioning, Possessions, Potty) 3. Clear area of hazards (spills, clutter, electrical cords, unnecessary equipment) 4. Place equipment (bed & TV controls, call light, phone, urinal) within reach 5. Encourage patient to wear glasses and hearing aides as appropriate 6. Maintain bed in lowest position 7. Lock wheels on bed/wheelchair 8. Provide adequate lighting, including night light 9. Assess need for additional bedding, food/fluids, pain med's prior to sleep/routinely 10. Provide gripper slippers or personal non-skid footwear 11. Teach patient and patient customer account representative to maintain environment for safety and engage in all aspects of fall prevention program 12. Remind patient to call for help before getting out of bed 13. Initiate bed/chair/exit alarms supportive devices as appropriate, (chair wedge, no-skid floor mat, raised edge mattress, hip protectors) 14. Locate patient bed assignment for optimal visualization 15. Evaluate and identify Safe Patient Handling Equipment needs 16. Provide supervision when out of bed or chair 17. Utilize gait belt as needed to assist with ambulation 18. Place adaptive equipment (cane, walker) within reach 19. Request patient customer account representative bring adaptive equipment/mobility aids from home or obtain and provide as needed 20. Consult pharmacy regarding effects of med's affecting mobility, cognition, and alternatives 21. Obtain physician order for PT if risk factors associated with mobility are present 22. Obtain physician order for OT as appropriate 23. Utilize diversional activities 24. Educate patient and patient customer account representative how to maintain a safe environment during visitationtimes (notify nurse prior to leaving bedside) 25. Consider appropriateness of medical or non-bilingual medical assistant 26. Set up voiding schedule as appropriate (every 2 hours) Outcome: Progressing Note: Evaluation of progress towards goal: free of falls at this time. Fall precautions per policy * Plan of Care - Saray Silva RN - 03/08/2024 8:17 PM EST Problem: Pain Goal: Patient goal is pain score less than 4, able to rest, and participant in treatment plan as appropriate Description: INTERVENTIONS: 1. Encourage patient or legal customer account representative to report early pain and ask for pain medicine when needed 2. Assess pain using appropriate pain scale and include the scale used when documenting 3. Administer analgesics based on type and severity of pain and evaluate response within appropriate time frame 4. Implement non-pharmacological measures as appropriate and evaluate response 5. Consider cultural and social influences on pain and pain management 6. Notify LIP if interventions ineffective or patient reports new pain 7. Monitor vital signs including pulse ox, end-tidal CO2 based on pain intervention 8. Reassess pain per policy 9. Teach patient or legal customer account representative interventions for comforting Outcome: Progressing Note: Evaluation of progress towards goal: RDA contacted for pain management Problem: Safety Goal: Patient will be injury free during hospitalization Description: INTERVENTIONS: 1. Assess patient's risk for falls and implement fall prevention plan of care per policy 2. Provide and maintain a safe environment 3. Proper use of double Identifiers 4. Medication administration using the 5 rights 5. Hand hygiene 6. Specimens are labeled at the bedside 7. Instruct patient/ patient customer account representative about use of safety devices 8. Include patient/ patient customer account representative in decisions related to safety Outcome: Progressing Note: Evaluation of progress towards goal: fall precautions maintained Problem: Infection Goal: Absence of infection during hospitalization Description: INTERVENTIONS 1. Assess and monitor for signs and symptoms of infection. 2. Monitor lab/diagnostic results. 3. Monitor all insertion sites i.e., indwelling lines, tubes and drains. 4. Monitor endotracheal (as able) and nasal secretions for changes in amount and color. 5. Administer medications as ordered. 6. Instruct and encourage patient and family to use good hand hygiene technique. 7. Identify and instruct patient/patient customer account representative in use of appropriate isolation precautionsfor identified infection/symptoms. 8. Provide and discuss with patient/patient customer account representative on educational MDRO sheet. 9. Encourage and monitor nutritional status daily and consult court monitor if indicated. 10. Implement neutropenic guidelines as needed. Outcome: Progressing Note: Evaluation of progress towards goal: no new s/s infection this shift Problem: Knowledge Deficit Goal: Patient/patient customer account representative demonstrates understanding of disease process, treatment plan,medications, and discharge instructions Description: INTERVENTIONS 1. Complete learning assessment and assess knowledge base 2. Provide teaching at level of understanding 3. Provide teaching via preferred learning method(s) Outcome: Progressing Note: Evaluation of progress towards goal: pt able to participate in plan of care Problem: Discharge Planning Goal: Discharge to post-acute care, other facility, or home with appropriate resources Description: Patient's goal is: INTERVENTIONS 1. Conduct assessment to determine patient/family and health care team treatment goals, and need for post-acute services based on payer coverage, community resources, and patient preferences, and barriers to discharge 2. Coordinate with Social work, Care Navigation, and Utilization Review to arrange appropriate level of services according to patient's needs based on patient preference and payer coverage in collaboration with the physician and health care team 3. Address psychosocial, clinical, and financial barriers to discharge as identified in assessment in conjunction with the patient/family and health care team 4. Consult appropriate ancillary services (i.e.. PT/OT/ST, etc) as needed 5. Communicate with and update the patient/family, physician, and health care team regarding progress on the discharge plan 6. Identify discharge learning needs (meds, wound care, etc). 7. Arrange for needed discharge transportation as appropriate Outcome: Progressing Note: Evaluation of progress towards goal: will plan for d/c when medically ready. Pt from home Problem: Glucose Imbalance Goal: Clinical indication of glucose balance is achieved Description: Patient's goal is: INTERVENTIONS 1. Monitor blood glucose levels as ordered 2. Administer medications as ordered 3. Notify physician of ineffective treatment plan Outcome: Progressing Note: Evaluation of progress towards goal: glucose managed with [facility]SI Goal: Patient's discharge needs are met Description: Patient's goal is: INTERVENTIONS 1. Assess patient for self-management skills 2. Encourage participation in diabetes management 3. Identify potential discharge barriers on admission and throughout hospital stay 4. Involve patient/S.O. in discharge planning process 5. Communicate referral to music educator as appropriate 6. Communicate referral to court monitor as appropriate 7. Collaborate with case management/secondary social studies teacher for discharge needs Outcome: Progressing Note: Evaluation of progress towards goal: will plan for d/c when medically ready Problem: Moderate - High Risk Fall Score Description: Bell Fall Score of =/> 25 or indicated by [facility] Assessment Goal: Patient should be free from fall Description: Interventions: 1. [place] to environment 2. Hourly rounds addressing the 4 P's (Pain, Positioning, Possessions, Potty) 3. Clear area of hazards (spills, clutter, electrical cords, unnecessary equipment) 4. Place equipment (bed & TV controls, call light, phone, urinal) within reach 5. Encourage patient to wear glasses and hearing aides as appropriate 6. Maintain bed in lowest position 7. Lock wheels on bed/wheelchair 8. Provide adequate lighting, including night light 9. Assess need for additional bedding, food/fluids, pain med's prior to sleep/routinely 10. Provide gripper slippers or personal non-skid footwear 11. Teach patient and patient customer account representative to maintain environment for safety and engage in all aspects of fall prevention program 12. Remind patient to call for help before getting out of bed 13. Initiate bed/chair/exit alarms supportive devices as appropriate, (chair wedge, no-skid floor mat, raised edge mattress, hip protectors) 14. Locate patient bed assignment for optimal visualization 15. Evaluate and identify Safe Patient Handling Equipment needs 16. Provide supervision when out of bed or chair 17. Utilize gait belt as needed to assist with ambulation 18. Place adaptive equipment (cane, walker) within reach 19. Request patient customer account representative bring adaptive equipment/mobility aids from home or obtain and provide as needed 20. Consult pharmacy regarding effects of med's affecting mobility, cognition, and alternatives 21. Obtain physician order for PT if risk factors associated with mobility are present 22. Obtain physician order for OT as appropriate 23. Utilize diversional activities 24. Educate patient and patient customer account representative how to maintain a safe environment during visitationtimes (notify nurse prior to leaving bedside) 25. Consider appropriateness of medical or non-bilingual medical assistant 26. Set up voiding schedule as appropriate (every 2 hours) Outcome: Progressing Note: Evaluation of progress towards goal: fall precautions maintained * Plan of Care - Nora Watson RN - 03/08/2024 5:36 PM EST Problem: Pain Goal: Patient goal is pain score less than 4, able to rest, and participant in treatment plan as appropriate Description: INTERVENTIONS: 1. Encourage patient or legal customer account representative to report early pain and ask for pain medicine when needed 2. Assess pain using appropriate pain scale and include the scale used when documenting 3. Administer analgesics based on type and severity of pain and evaluate response within appropriate time frame 4. Implement non-pharmacological measures as appropriate and evaluate response 5. Consider cultural and social influences on pain and pain management 6. Notify LIP if interventions ineffective or patient reports new pain 7. Monitor vital signs including pulse ox, end-tidal CO2 based on pain intervention 8. Reassess pain per policy 9. Teach patient or legal customer account representative interventions for comforting Outcome: Progressing Note: Evaluation of progress towards goal: pt has chronic back pain repositioned for comfort Problem: Safety Goal: Patient will be injury free during hospitalization Description: INTERVENTIONS: 1. Assess patient's risk for falls and implement fall prevention plan of care per policy 2. Provide and maintain a safe environment 3. Proper use of double Identifiers 4. Medication administration using the 5 rights 5. Hand hygiene 6. Specimens are labeled at the bedside 7. Instruct patient/ patient customer account representative about use of safety devices 8. Include patient/ patient customer account representative in decisions related to safety Outcome: Progressing Note: Evaluation of progress towards goal: no injury this shift Problem: Infection Goal: Absence of infection during hospitalization Description: INTERVENTIONS 1. Assess and monitor for signs and symptoms of infection. 2. Monitor lab/diagnostic results. 3. Monitor all insertion sites i.e., indwelling lines, tubes and drains. 4. Monitor endotracheal (as able) and nasal secretions for changes in amount and color. 5. Administer medications as ordered. 6. Instruct and encourage patient and family to use good hand hygiene technique. 7. Identify and instruct patient/patient customer account representative in use of appropriate isolation precautionsfor identified infection/symptoms. 8. Provide and discuss with patient/patient customer account representative on educational MDRO sheet. 9. Encourage and monitor nutritional status daily and consult court monitor if indicated. 10. Implement neutropenic guidelines as needed. Outcome: Progressing Note: Evaluation of progress towards goal: pt afebrile Problem: Safety Goal: Patient will be injury free during hospitalization Description: INTERVENTIONS: 1. Assess patient's risk for falls and implement fall prevention plan of care per policy 2. Provide and maintain a safe environment 3. Proper use of double Identifiers 4. Medication administration using the 5 rights 5. Hand hygiene 6. Specimens are labeled at the bedside 7. Instruct patient/ patient customer account representative about use of safety devices 8. Include patient/ patient customer account representative in decisions related to safety Outcome: Progressing Note: Evaluation of progress towards goal: no injury this shift * Plan of Care - Nora Watson RN - 03/08/2024 5:33 PM EST Problem: Pain Goal: Patient goal is pain score less than 4, able to rest, and participant in treatment plan as appropriate Description: INTERVENTIONS: 1. Encourage patient or legal customer account representative to report early pain and ask for pain medicine when needed 2. Assess pain using appropriate pain scale and include the scale used when documenting 3. Administer analgesics based on type and severity of pain and evaluate response within appropriate time frame 4. Implement non-pharmacological measures as appropriate and evaluate response 5. Consider cultural and social influences on pain and pain management 6. Notify LIP if interventions ineffective or patient reports new pain 7. Monitor vital signs including pulse ox, end-tidal CO2 based on pain intervention 8. Reassess pain per policy 9. Teach patient or legal customer account representative interventions for comforting Outcome: Progressing Note: Evaluation of progress towards goal: pt has chronic back pain repositioned for comfort Problem: Safety Goal: Patient will be injury free during hospitalization Description: INTERVENTIONS: 1. Assess patient's risk for falls and implement fall prevention plan of care per policy 2. Provide and maintain a safe environment 3. Proper use of double Identifiers 4. Medication administration using the 5 rights 5. Hand hygiene 6. Specimens are labeled at the bedside 7. Instruct patient/ patient customer account representative about use of safety devices 8. Include patient/ patient customer account representative in decisions related to safety Outcome: Progressing Note: Evaluation of progress towards goal: no injury this shift Problem: Moderate - High Risk Fall Score Description: Bell Fall Score of =/> 25 or indicated by [facility] Assessment Goal: Patient should be free from fall Description: Interventions: 1. [place] to environment 2. Hourly rounds addressing the 4 P's (Pain, Positioning, Possessions, Potty) 3. Clear area of hazards (spills, clutter, electrical cords, unnecessary equipment) 4. Place equipment (bed & TV controls, call light, phone, urinal) within reach 5. Encourage patient to wear glasses and hearing aides as appropriate 6. Maintain bed in lowest position 7. Lock wheels on bed/wheelchair 8. Provide adequate lighting, including night light 9. Assess need for additional bedding, food/fluids, pain med's prior to sleep/routinely 10. Provide gripper slippers or personal non-skid footwear 11. Teach patient and patient customer account representative to maintain environment for safety and engage in all aspects of fall prevention program 12. Remind patient to call for help before getting out of bed 13. Initiate bed/chair/exit alarms supportive devices as appropriate, (chair wedge, no-skid floor mat, raised edge mattress, hip protectors) 14. Locate patient bed assignment for optimal visualization 15. Evaluate and identify Safe Patient Handling Equipment needs 16. Provide supervision when out of bed or chair 17. Utilize gait belt as needed to assist with ambulation 18. Place adaptive equipment (cane, walker) within reach 19. Request patient customer account representative bring adaptive equipment/mobility aids from home or obtain and provide as needed 20. Consult pharmacy regarding effects of med's affecting mobility, cognition, and alternatives 21. Obtain physician order for PT if risk factors associated with mobility are present 22. Obtain physician order for OT as appropriate 23. Utilize diversional activities 24. Educate patient and patient customer account representative how to maintain a safe environment during visitationtimes (notify nurse prior to leaving bedside) 25. Consider appropriateness of medical or non-bilingual medical assistant 26. Set up voiding schedule as appropriate (every 2 hours) Note: Evaluation of progress towards goal: no falls this shift [facility] N[facility]* Drew Guzman MD - 2024 12:55 PM EST Images from the original note were not included. [facility] Discharge Summary Patient's Name: Brian Mnadel Date of : 1950 Age: 73 yrs Gender: male PCP: Patient Care Team: No Pcp No Pcp as PCP - General (Family Medicine) DATE OF ADMISSION: 03/08/2024 DATE OF DISCHARGE: 2024 DISCHARGE DIAGNOSES: Active Hospital Problems Diagnosis Date Noted Date Diagnosed Vitamin D deficiency 03/17/2024 Age-related osteoporosis with current pathological fracture 03/17/2024 Pathological fracture of thoracic vertebra with delayed healing 03/14/2024 Intractable back pain 03/14/2024 Gross hematuria 03/13/2024 Staghorn calculus 03/13/2024 [place]08/2024 History of myocardial infarction 09/13/2023 Spondylosis of lumbosacral region without myelopathy or radiculopathy 08/24/2023 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 07/23/2023 Major depressive disorder 09/26/2018 Chronic diastolic congestive heart failure [place] 09/26/2018 Resolved Problems No resolved problems to display. CONSULTANTS: Consulting Providers Provider Service Specialty [facility] Division Of Infectious Disease -- Infectious Disease Piero Dumont Jr., MD Orthopedics Orthopedic Surgery PROCEDURES: 03/16/24 Surgeon Role Piero Dumont Jr., MD Primary Procedure Laterality Anesthesia AUGMENTATION VERTEBRAL KYPHOPLASTY SPINE T12 N/A General 03/09/24 Surgeon Role Henna Beasley MD Primary Procedure Laterality Anesthesia CYSTOSCOPY INSERTION STENT URETER LT Left General Things needing follow up: - outpatient follow up with Urology for stent and stone management. Hospital Course Brian Mandelis a 74 y.o.male with past medical history significant for CAD s/p CABG and KARL todistal left main-ostial left circumflex in June 2023 due to NSTEMI, severe symptomatic aortic valve stenosis with recurrent syncope s/p 23 mm Carpenter Jose Cruz 3 TAVR 11/25/2023, diabetes mellitus type 2, chronic hypoxic respiratory failure on 3 L O2 nasal cannula, SARAH and AAA. The patient presented to outside facility with acute onset vomiting, diarrhea, weakness and CRISTINE with creatinine of 6.49. His initial hemoglobin was 8.6 and lactic acid was 3.7. CT abdomen/pelvis showed nonobstructing bilateral renal stones and CT chest showed left pleural effusions and subpleural effusions. The patient was hypotensive and was started on norepinephrine infusion in addition to receiving IV fluid boluses and bicarb boluses. The patient was transferred to [facility] ICU where he was diagnosed with septic shock due to presumed complicated UTI. He was seen by Infectious Disease and Urology. He underwent cystoscopy and left ureteral stent placement 03/09/2024 for left-sided staghorn nephrolithiasis resulting in partial obstruction. His bloodcultures and urine cultures remain negative and he was treated with 7 days of IV cefepime then transitioned to 5 additional days of p.o. Augmentin. He developed gross hematuria after the urology procedure resulting in acute blood loss anemia and he required 2 units of PRBC during this admission. Hematuria resolved after holding aspirin and Brilinta. He will follow up with Urology as outpatient for stent and stone management. The patient's Brilinta was resumed on 03/17/2024 but I will continue to hold his aspirin on discharge due to risk of recurrent bleeding. The patient had prerenal CRISTINE in the setting of hypotension and septic shock. This has resolved withIV fluid resuscitation and holding lisinopril. He was also started on midodrine due to low blood pressure during this hospital stay and this will be ordered on discharge. The patient was seen by Orthopedic surgery during this admission for worsening lower back pain in the setting of T12 compression fracture. He underwent kyphoplasty on 03/16/2024 with great improvement in the lower back pain. This procedure was needed as inpatient to help facilitate the patient's discharge to home as otherwise he would have needed to go to a halfway facility for prolonged rehab due to the significant amount of lower back pain that he has. The patient will be discharged home today in a stable condition with home health care. Discharge Medications: Medication List START taking these medications Instructions Last Dose Given Next Dose Due amoxicillin-pot clavulanate 875-125 mg per tablet Commonly known as: AUGMENTIN Take 1 tablet by mouth every 12 (twelve) hours for 3 doses. cholecalciferol (vitamin D3) 5,000 units capsule Commonly known as: VITAMIN D3 Start taking on: March 19, 2024 Take 1 capsule (5,000 Units total) by mouth in the morning for 30 days. midodrine 5 mg tablet Commonly known as: PROAMATINE Take 1 tablet (5 mg total) by mouth 3 (three) times a day. CONTINUE taking these medications Instructions Last Dose Given Next Dose Due BRILINTA 90 mg tablet Generic drug: ticagrelor Take 1 tablet (90 mg total) by mouth every 12 (twelve) hours. cyanocobalamin 500 MCG tablet Take 1 tablet (500 mcg total) by mouth in the morning. furosemide 20 mg tablet Commonly known as: LASIX TAKE 1 TABLET BY MOUTH TWICE DAILY (IN THE MORNING and late afternoon) metFORMIN XR 750 mg 24 hr tablet Commonly known as: GLUCOPHAGE XR Take 1 tablet (750 mg total) by mouth nightly. metoprolol tartrate 25 mg tablet Commonly known as: LOPRESSOR Take 1 tablet (25 mg total) by mouth in the morning. nitroglycerin 0.4 MG SL tablet Commonly known as: NITROSTAT Place 1 tablet (0.4 mg total) under the tongue every 5 (five) minutes as needed for chest pain. PARoxetine 10 mg tablet Commonly known as: PAXIL Take 1 tablet (10 mg total) by mouth every morning. pioglitazone 30 mg tablet Commonly known as: ACTOS Take 1 tablet (30 mg total) by mouth in the morning. simvastatin 40 mg tablet Commonly known as: ZOCOR Take 1 tablet (40 mg total) by mouth nightly. STOP taking these medications aspirin 81 mg lisinopriL 2.5 mg tablet Commonly known as: PRINIVILZESTRIL Where to Get Your Medications These medications were sent to [facility] - [place], [place] - [address] [facility] [address] [facility] [place] [address] amoxicillin-pot clavulanate 875-125 mg per tablet cholecalciferol (vitamin D3) 5,000 units capsule midodrine 5 mg tablet For most accurate medication list, please review the discharge medication summary. DISCHARGE EXAM: Vitals: 03/18/24 1211 BP: Pulse: Resp: Temp: 36.6 C (97.8 F) SpO2: General appearance: alert, in no acute distress Skin: No rash, no erythema Lungs: Nonlabored respiration, no wheezing Heart: RRR, No ectopy Abdomen: Abdomen soft, non-tender. Extremities: No edema, no swelling or erythema. Neuro: AAOx3, non-focal Labs: Recent Results (from the past 48 hours) Bedside Glucose *Place/Obtain serum glucose if >500(>600 MRH) per glucometer. Collection Time: 03/16/24 3:30 PM Result Value Ref Range Bedside glucose 116 (H) 65 - 99 mg/dL Phosphorus Collection Time: 03/16/24 5:00 PM Result Value Ref Range Phosphorus 2.8 2.4 - 4.9 mg/dL Ionized magnesium Collection Time: 03/16/24 5:00 PM Result Value Ref Range Magnesium, ionized 0.63 0.45 - 0.74 mmol/L Hemoglobin and hematocrit, blood Collection Time: 03/16/24 5:00 PM Result Value Ref Range Hemoglobin 9.3 (L) 13.0 - 17.0 g/dL Hematocrit 27.4 (L) 39 - 49 % Bedside Glucose *Place/Obtain serum glucose if >500(>600 MR[facility]) per glucometer. Collection Time: 03/16/24 7:48 PM Result Value Ref Range Bedside glucose 288 (H) 65 - 99 mg/dL Bedside Glucose *Place/Obtain serum glucose if >500(>600 MRH) per glucometer. Collection Time: 03/16/24 9:03 PM Result Value Ref Range Bedside glucose 303 (H) 65 - 99 mg/dL Basic Metabolic Panel Collection Time: 03/17/24 5:10 AM Result Value Ref Range Sodium 139 134 - 146 mmol/L Potassium, Bld 4.6 3.5 - 5.0 mmol/L Chloride 105 98 - 109 mmol/L CO2 29 22 - 32 mmol/L Anion gap 5 5 - 15 mmol/L BUN 15 5 - 27 mg/dL Creatinine 0.87 0.60 - 1.30 mg/dL Glucose 139 (H) 65 - 99 mg/dL Calcium 8.6 8.5 - 10.5 mg/dL eGFR (CKD-EPI)non-race dependent 90 >59 ml/min/1.73sq.m Phosphorus Collection Time: 03/17/24 5:10 AM Result Value Ref Range Phosphorus 1.7 (L) 2.4 - 4.9 mg/dL Magnesium Collection Time: 03/17/24 5:10 AM Result Value Ref Range Magnesium 1.9 1.8 - 2.6 mg/dL CBC auto differential Collection Time: 03/17/24 5:10 AM Result Value Ref Range White Blood Cells 5.7 4.0 - 11.0 X10E9/L RBC count 2.48 (L) 4.10 - 5.70 X10E12/L Hemoglobin 8.3 (L) 13.0 - 17.0 g/dL Hematocrit 24.4 (L) 39 - 49 % MCV 98 80 - 100 fL MCH 33.3 27 - 34 pg MCHC 33.9 32 - 36 g/dL RDW 19.3 (H) 11.5 - 15.0 % Platelets 69 (L) 150 - 450 X10E9/L MPV 10.5 7 - 12 fL % neutrophils 81.1 % % lymphocytes 10.9 % % monocytes 7.6 % % eosinophils 0.0 % % Basophils 0.4 % Neutrophils Absolute (A) 4.6 1.5 - 6.6 X10E9/L Lymphocytes Absolute 0.6 (L) 1.0 - 3.5 X10E9/L Monocytes Absolute 0.4 0 - 0.9 X10E9/L Eosinophils Absolute 0.0 0.0 - 0.4 X10E9/L Basophils Absolute 0.0 0.0 - 0.2 X10E9/L Bedside Glucose *Place/Obtain serum glucose if >500(>600 MRH) per glucometer. Collection Time: 03/17/24 8:12 AM Result Value Ref Range Bedside glucose 139 (H) 65 - 99 mg/dL Bedside Glucose *Place/Obtain serum glucose if >500(>600 MRH) per glucometer. Collection Time: 03/17/24 11:21 AM Result Value Ref Range Bedside glucose 206 (H) 65 - 99 mg/dL Ionized magnesium Collection Time: 03/17/24 3:18 PM Result Value Ref Range Magnesium, ionized 0.56 0.45 - 0.74 mmol/L Phosphorus Collection Time: 03/17/24 3:18 PM Result Value Ref Range Phosphorus 2.1 (L) 2.4 - 4.9 mg/dL Bedside Glucose *Place/Obtain serum glucose if >500(>600 MRH) per glucometer. Collection Time: 03/17/24 5:09 PM Result Value Ref Range Bedside glucose 107 (H) 65 - 99 mg/dL Bedside Glucose *Place/Obtain serum glucose if >500(>600 MRH) per glucometer. Collection Time: 03/17/24 9:26 PM Result Value Ref Range Bedside glucose 207 (H) 65 - 99 mg/dL Phosphorus Collection Time: 03/18/24 1:05 AM Result Value Ref Range Phosphorus 3.4 2.4 - 4.9 mg/dL Basic Metabolic Panel Collection Time: 03/18/24 5:04 AM Result Value Ref Range Sodium 139 134 - 146 mmol/L Potassium, Bld 4.1 3.5 - 5.0 mmol/L Chloride 102 98 - 109 mmol/L CO2 29 22 - 32 mmol/L Anion gap 8 5 - 15 mmol/L BUN 19 5 - 27 mg/dL Creatinine 0.89 0.60 - 1.30 mg/dL Glucose 109 (H) 65 - 99 mg/dL Calcium 8.9 8.5 - 10.5 mg/dL eGFR (CKD-EPI)non-race dependent 89 >59 ml/min/1.73sq.m Phosphorus Collection Time: 03/18/24 5:04 AM Result Value Ref Range Phosphorus 3.3 2.4 - 4.9 mg/dL Magnesium Collection Time: 03/18/24 5:04 AM Result Value Ref Range Magnesium 1.6 (L) 1.8 - 2.6 mg/dL CBC auto differential Collection Time: 03/18/24 5:04 AM Result Value Ref Range White Blood Cells 10.6 4.0 - 11.0 X10E9/L RBC count 2.47 (L) 4.10 - 5.70 X10E12/L Hemoglobin 8.1 (L) 13.0 - 17.0 g/dL Hematocrit 24.2 (L) 39 - 49 % MCV 98 80 - 100 fL MCH 32.9 27 - 34 pg MCHC 33.7 32 - 36 g/dL RDW 19.3 (H) 11.5 - 15.0 % Platelets 83 (L) 150 - 450 X10E9/L MPV 10.1 7 - 12 fL % neutrophils 78.1 % % lymphocytes 13.1 % % monocytes 7.6 % % eosinophils 0.1 % % Basophils 1.1 % Neutrophils Absolute (A) 8.3 (H) 1.5 - 6.6 X10E9/L Lymphocytes Absolute 1.4 1.0 - 3.5 X10E9/L Monocytes Absolute 0.8 0 - 0.9 X10E9/L Eosinophils Absolute 0.0 0.0 - 0.4 X10E9/L Basophils Absolute 0.1 0.0 - 0.2 X10E9/L Bedside Glucose *Place/Obtain serum glucose if >500(>600 MRH) per glucometer. Collection Time: 03/18/24 8:19 AM Result Value Ref Range Bedside glucose 103 (H) 65 - 99 mg/dL Radiology: No results found. Discharge Instructions Disposition: Discharge to Home with homecare Condition: Good Activity: No spine flexion, no spine lifting for 6 weeks. Diet: Adult diet Regular Texture; Consistent Carb 210 grams (1800 kcal); No Added Salt (3-4 gm Sodium) Adult diet No Pcp No Pcp [facility] [id number] Schedule an appointment as soon as possible for a visit in 1 week(s) Kye Sylvester MD [address] [place] [address] [place] [address] Schedule an appointment as soon as possible for a visit in 2 week(s) Piero Dumont Jr., MD [address] [place] [address], [address] [facility] [address] Schedule an appointment as soon as possible for a visit in 2 week(s) Information Provided to the Patient: Patient given copy of Discharge Instructions, patient hospital stay was discussed. No special instructions. I have spent 40 minutes coordinating and preparing this discharge. I have discussed the patient's hospitalization course, treatment plan and follow up instructions with the patient. I have answered all the patient's questions. Electronically signed by: MD Radha BEAVER [facility], Department of Internal Medicine 03/18/24 12:55 PM [facility] History of Present illness Narrative* Drew Guzman MD - 03/17/2024 12:30 PM EST [facility] Progress Note 03/17/2024 Patient Name: Brian Mandel : 1950 Hospital Day: 10 SUBJECTIVE Follow-up for lower back pain The patient seen and examined. No acute events over night. His back pain has significantly improvedafter the kyphoplasty and now he is hoping he will be able to go home instead of needing rehab. He was able to ambulate today but is still waiting for PT/OT evaluation. His friend/ride home is not available until Tuesday. His urine is clean and he is not passing any blood or clots. Past Medical History: Diagnosis Date Acute coronary syndrome [place] Anxiety disorder Chronic back pain Chronic obstructive asthma with exacerbation [place]) COPD (chronic obstructive pulmonary disease) [place]) Diabetes mellitus type 2, controlled ([facility]) Essential hypertension Folate deficiency anemia Heart failure ([facility]) Hypotension 11/22/2023 Megaloblastic anemia VT (myocardial infarction) ([facility]) 06/2023 Muscle weakness (generalized) Myocardial infarct ([facility] Obesity Obstructive sleep apnea SARAH (obstructive sleep apnea) Pancytopenia ([facility] Presence of coronary artery bypass graft stent Shock ([facility]) 10/05/2023 Supplemental oxygen dependent Past Surgical History: Procedure Laterality Date CARDIAC SURGERY X2 CYSTOSCOPY INSERTION STENT URETER LT Left 03/09/2024 Performed by Henna Beasley MD at [facility] Transcutaneous aortic valve replacement/Transfemoral/Carpenter N/A 11/25/2023 Performed by Henrietta Arias MD at [facility] CARDIAC CATH LABS OBJECTIVE Vital Signs: Temp: [36.1 C (97 F)-37 C (98.6 F)] 36.7 C (98 F) Pulse: [57-93] 83 Resp: [11-24] 24 BP: (93-145)/(52-72) 124/72 SpO2: [96 %-100 %] 96 % O2 Device: Nasal cannula O2 Flow Rate (L/min): [2 L/min-6 L/min] 3 L/min Weight: Body mass index is 36.98 kg/m . Admission weight: 83.4 kg (183 lb 13.8 oz) Wt Readings from Last 3 Encounters: 03/17/24 85.9 kg (189 lb 6 oz) 03/08/24 71.2 kg (157 lb) 01/20/24 85.3 kg (188 lb 1.6 oz) Input/Output: Intake/Output Summary (Last 24 hours) at 03/17/2024 1230 Last data filed at 03/17/2024 1210 Gross per 24 hour Intake 742.5 ml Output 755 ml Net -12.5 ml Physical Exam: General appearance: Alert, cooperative, no distress. Eyes: PERRLA, EOM's intact Conjunctiva/corneas moist and clear, no pallor or icterus. Respiratory: Normal work of breathing. No use of accessory muscles. No wheezing, rhonchi or crackles. Cardiovascular: Regular rate and rhythm, S1, S2 normal, no murmur, rub or gallop. No LE edema. Abdomen: Soft, non-tender, no masses. No hernia. No hepatosplenomegaly. Skin: No rashes, lesions or ulcers. No induration or subcutaneous nodules. Psychiatric: Mood and affect appropriate, Appropriate judgment and insight. Alert and oriented. Labs/Imaging: Recent Results (from the past 24 hours) Bedside Glucose *Place/Obtain serum glucose if >500(>600 MRH) per glucometer. Collection Time: 03/16/24 3:30 PM Result Value Ref Range Bedside glucose 116 (H) 65 - 99 mg/dL Phosphorus Collection Time: 03/16/24 5:00 PM Result Value Ref Range Phosphorus 2.8 2.4 - 4.9 mg/dL Ionized magnesium Collection Time: 03/16/24 5:00 PM Result Value Ref Range Magnesium, ionized 0.63 0.45 - 0.74 mmol/L Hemoglobin and hematocrit, blood Collection Time: 03/16/24 5:00 PM Result Value Ref Range Hemoglobin 9.3 (L) 13.0 - 17.0 g/dL Hematocrit 27.4 (L) 39 - 49 % Bedside Glucose *Place/Obtain serum glucose if >500(>600 MRH) per glucometer. Collection Time: 03/16/24 7:48 PM Result Value Ref Range Bedside glucose 288 (H) 65 - 99 mg/dL Bedside Glucose *Place/Obtain serum glucose if >500(>600 MRH) per glucometer. Collection Time: 03/16/24 9:03 PM Result Value Ref Range Bedside glucose 303 (H) 65 - 99 mg/dL Basic Metabolic Panel Collection Time: 03/17/24 5:10 AM Result Value Ref Range Sodium 139 134 - 146 mmol/L Potassium, Bld 4.6 3.5 - 5.0 mmol/L Chloride 105 98 - 109 mmol/L CO2 29 22 - 32 mmol/L Anion gap 5 5 - 15 mmol/L BUN 15 5 - 27 mg/dL Creatinine 0.87 0.60 - 1.30 mg/dL Glucose 139 (H) 65 - 99 mg/dL Calcium 8.6 8.5 - 10.5 mg/dL eGFR (CKD-EPI)non-race dependent 90 >59 ml/min/1.73sq.m Phosphorus Collection Time: 03/17/24 5:10 AM Result Value Ref Range Phosphorus 1.7 (L) 2.4 - 4.9 mg/dL Magnesium Collection Time: 03/17/24 5:10 AM Result Value Ref Range Magnesium 1.9 1.8 - 2.6 mg/dL CBC auto differential Collection Time: 03/17/24 5:10 AM Result Value Ref Range White Blood Cells 5.7 4.0 - 11.0 X10E9/L RBC count 2.48 (L) 4.10 - 5.70 X10E12/L Hemoglobin 8.3 (L) 13.0 - 17.0 g/dL Hematocrit 24.4 (L) 39 - 49 % MCV 98 80 - 100 fL MCH 33.3 27 - 34 pg MCHC 33.9 32 - 36 g/dL RDW 19.3 (H) 11.5 - 15.0 % Platelets 69 (L) 150 - 450 X10E9/L MPV 10.5 7 - 12 fL % neutrophils 81.1 % % lymphocytes 10.9 % % monocytes 7.6 % % eosinophils 0.0 % % Basophils 0.4 % Neutrophils Absolute (A) 4.6 1.5 - 6.6 X10E9/L Lymphocytes Absolute 0.6 (L) 1.0 - 3.5 X10E9/L Monocytes Absolute 0.4 0 - 0.9 X10E9/L Eosinophils Absolute 0.0 0.0 - 0.4 X10E9/L Basophils Absolute 0.0 0.0 - 0.2 X10E9/L Bedside Glucose *Place/Obtain serum glucose if >500(>600 MRH) per glucometer. Collection Time: 03/17/24 8:12 AM Result Value Ref Range Bedside glucose 139 (H) 65 - 99 mg/dL Bedside Glucose *Place/Obtain serum glucose if >500(>600 MRH) per glucometer. Collection Time: 03/17/24 11:21 AM Result Value Ref Range Bedside glucose 206 (H) 65 - 99 mg/dL Microbiology Results No results found for the last 168 hours. Fluoroscopy less than one hour Result Date: 03/17/2024 HISTORY: T12 fracture Fluoroscopy time: 115.2 seconds Reference air kerma: 71.72 mGy FINDINGS: . Images demonstrate localization of the T12 vertebral body on AP and lateral views. Diverticular accessto the vertebral body followed by kyphoplasty and cement augmentation. Cement does appear to extendthrough defect within the superior cortex into the inferior T11-T12 disc space. IMPRESSION: * Intraoperative fluoroscopy provided during T12 kyphoplasty. No radiologist present during examination. Please refer to operative report for additional detail. Finalized by Braulio De Anda MD on 03/17/2024 2:06 AM All available laboratory, imaging, and microbiology data has been personally reviewed in detail, and accessible in full per EMR. Medications: amoxicillin-pot clavulanate, 1 tablet, oral, Q12H LYNN atorvastatin, 20 mg, oral, Nightly cholecalciferol (vitamin D3), 5,000 Units, oral, Daily cyanocobalamin, 500 mcg, oral, Daily ergocalciferol, 50,000 Units, oral, Weekly furosemide, 20 mg, oral, BID AC insulin lispro, 2-10 Units, subcutaneous, With meals and nightly melatonin, 3 mg, oral, Nightly midodrine, 5 mg, oral, TID ticagrelor, 90 mg, oral, Q12H LYNN Infusion: PRN medications: acetaminophen calcium gluconate OR calcium gluconate OR calcium gluconate dextrose dextrose 50 % in water (D50W) glucagon (human recombinant) ipratropium-albuteroL magnesium sulfate OR magnesium sulfate ondansetron (PF) oxyCODONE-acetaminophen potassium chloride OR potassium chloride potassium chloride in water OR potassium chloride in water sennosides-docusate sodium sodium phosphate IV OR sodium phosphate IV - central line OR sod phos di, mono-K phos mono ASSESSMENT and plan: Active Hospital Problems Diagnosis Date Noted Date Diagnosed Vitamin D deficiency 03/17/2024 Age-related osteoporosis with current pathological fracture 03/17/2024 Pathological fracture of thoracic vertebra with delayed healing 03/14/2024 Intractable back pain 03/14/2024 Gross hematuria 03/13/2024 Staghorn calculus 03/13/2024 Acute renal failure (ARF) [place] 03/08/2024 History of myocardial infarction 09/13/2023 Spondylosis of lumbosacral region without myelopathy or radiculopathy 08/24/2023 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 07/23/2023 Major depressive disorder 09/26/2018 Chronic diastolic congestive heart failure ([facility] 09/26/2018 Resolved Problems No resolved problems to display. - Septic shock-resolved - Left-sided staghorn nephrolithiasis with partial obstruction - Phimosis and panurethral stricture-s/p dilation - s/p cystoscopy and left ureteral stent 03/09/2024 Urine and blood cultures are showing no growth during this admission. - appreciate ID input. Finished 7 days of IV cefepime and was transitioned to 5 days of p.o. Augmentin. - Acute blood loss anemia in the setting of Gross hematuria -resolved S/p 1 unit PRBC 03/10/2024 and 1 unit PRBC 03/16/2024 Continue to monitor CRISTINE due to ATN Resolved Hypotension Continue midodrine 5 mg p.o. t.i.d. CAD s/p CABG and KARL to distal Left main-ostial LXC 06/2023 in the setting of NSTEMI Severe symptomatic aortic valve stenosis with recurrent syncope s/p 23 mm Carpenter Jose Cruz 3 TAVR 11/25/2023 Chronic HFpEF: No acute chest pain. Will resume ticagrelor 90 mg p.o. b.i.d. and continue to hold aspirin due to risk of recurrent gross hematuria. Discussed risks versus benefits with the patient and he agrees. Urology and Orthopedic surgery cleared the patient to resume antiplatelets. Simvastatin 40 mg p.o. q.h.s. Lasix 20 mg po BID. Diabetes mellitus type 2 Metformin and pioglitazone on hold Blood glucose is well-controlled Thrombocytopenia Likely due to infection versus due to antibiotics Monitor T12 compression fracture S/p kyphoplasty 03/16/2024 Pending PT/OT evaluation. Chronic hypoxic respiratory failure: SARAH: On 3L O2 NC. Stable. Vitamin-D deficiency 25 hydroxy vitamin-D level is 17.8 Ergocalciferol 38013 units p.o. weekly Hypomagnesemia: Replace and monitor. DVT prophylaxis: SCDs. No pharmacological prophylaxis due to gross hematuria. Code Status: Full code. Disposition: Home in 1-2 days if hemoglobin remained stable and if his pain is well-controlled. Current care plan discussed in detail with the patient. He verbalized understanding. Further management will follow based on the clinical course of the patient and results of ongoing evaluation Electronically signed by: DREW GUZMAN MD 03/17/2024 Preferred contact method: #1. Epic chat #2. [facility] team pager Available from 7 am to 7 pm For after hours, please page [facility] night team. Disclaimer Note: To increase efficiency, your provider may have prepared this document using voice recognition technology. In that case, if a word or phrase is confusing, or does not make sense, thisis likely due to a recognition error within the program which was not discovered during the provider s review. If you believe an error has occurred, please notify your provider s office at your earliest convenience, so we can correct any mistakes. * Piero Dumont Jr., MD - 03/17/2024 10:50 AM EST 03/17/2024 Patient Name: Brian Mandel : 1950 Problem List: Principal Problem: Acute renal failure (ARF) ([facility] Active Problems: Chronic diastolic congestive heart failure ([facility]) 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 Major depressive disorder History of myocardial infarction Spondylosis of lumbosacral region without myelopathy or radiculopathy Gross hematuria Staghorn calculus Pathological fracture of thoracic vertebra with delayed healing Intractable back pain Assessment and Plan: Assessment: Status post kyphoplasty vertebral augmentation, biopsy pathological osteoporotic T12 compression fracture nonunion T LS DDD Osteoporosis vitamin-D deficiency 17.8 Plan: Spine suture removal, Steri-Strip application Vitamin D3 5000 International Unit daily, vitamin D2 60504 International Unit weekly Physical therapy. Walker p.r.n. ambulation. No spine flexion, no spine lifting for 6 post fracture weeks Okay to discharge orthopedically. Planning office follow-up 6 weeks. Preclinic AP, lateral x-rays thoracic, lumbar spine SUBJECTIVE: Chief complaints: Improved spine pain OBJECTIVE: Exam: BP 124/70 Pulse 67 Temp 36.7 C (98 F) (Oral) Resp 22 Ht 152.4 cm (5') Wt 85.9 kg (189 lb 6 oz) SpO2 98% BMI 36.98 kg/m Intake/Output Summary (Last 24 hours) at 03/17/2024 1050 Last data filed at 03/16/2024 2231 Gross per 24 hour Intake 742.5 ml Output 605 ml Net 137.5 ml General appearance:alert, and orientated HEENT: atraumatic normocephalic Lungs: bilaterally clear to auscultation no rhonchi CV: Regular rate and rhythm no murmur Abd: soft nontender normal bowel sounds EXTR: Dressing intact Skin: intact Neurovascular: Satisfactory Labs: Recent Results (from the past 48 hours) Bedside Glucose *Place/Obtain serum glucose if >500(>600 MRH) per glucometer. Collection Time: 03/15/24 12:31 PM Result Value Ref Range Bedside glucose 145 (H) 65 - 99 mg/dL Vitamin D 25 hydroxy Collection Time: 03/15/24 2:52 PM Result Value Ref Range Vit D, 25-Hydroxy 17.8 (L) 30 - 100 ng/mL Bedside Glucose *Place/Obtain serum glucose if >500(>600 MRH) per glucometer. Collection Time: 03/15/24 5:52 PM Result Value Ref Range Bedside glucose 141 (H) 65 - 99 mg/dL Bedside Glucose *Place/Obtain serum glucose if >500(>600 MRH) per glucometer. Collection Time: 03/15/24 9:06 PM Result Value Ref Range Bedside glucose 138 (H) 65 - 99 mg/dL Basic Metabolic Panel Collection Time: 03/16/24 5:53 AM Result Value Ref Range Sodium 140 134 - 146 mmol/L Potassium, Bld 4.1 3.5 - 5.0 mmol/L Chloride 107 98 - 109 mmol/L CO2 29 22 - 32 mmol/L Anion gap 4 (L) 5 - 15 mmol/L BUN 11 5 - 27 mg/dL Creatinine 0.65 0.60 - 1.30 mg/dL Glucose 90 65 - 99 mg/dL Calcium 8.3 (L) 8.5 - 10.5 mg/dL eGFR (CKD-EPI)non-race dependent >90 >59 ml/min/1.73sq.m Phosphorus Collection Time: 03/16/24 5:53 AM Result Value Ref Range Phosphorus 2.0 (L) 2.4 - 4.9 mg/dL Magnesium Collection Time: 03/16/24 5:53 AM Result Value Ref Range Magnesium 1.4 (L) 1.8 - 2.6 mg/dL CBC auto differential Collection Time: 03/16/24 5:53 AM Result Value Ref Range White Blood Cells 6.2 4.0 - 11.0 X10E9/L RBC count 2.05 (L) 4.10 - 5.70 X10E12/L Hemoglobin 6.7 (LL) 13.0 - 17.0 g/dL Hematocrit 20.3 (L) 39 - 49 % MCV 99 80 - 100 fL MCH 33.0 27 - 34 pg MCHC 33.3 32 - 36 g/dL RDW 19.3 (H) 11.5 - 15.0 % Platelets 75 (L) 150 - 450 X10E9/L MPV 10.1 7 - 12 fL % neutrophils 59.6 % % lymphocytes 25.8 % % monocytes 11.6 % % eosinophils 2.0 % % Basophils 1.0 % Neutrophils Absolute (A) 3.7 1.5 - 6.6 X10E9/L Lymphocytes Absolute 1.6 1.0 - 3.5 X10E9/L Monocytes Absolute 0.7 0 - 0.9 X10E9/L Eosinophils Absolute 0.1 0.0 - 0.4 X10E9/L Basophils Absolute 0.1 0.0 - 0.2 X10E9/L Type and screen(includes indirect delfin) Collection Time: 03/16/24 7:30 AM Result Value Ref Range ABO A RH Positive Antibody Screen Negative Crossmatch RBC:Number of Units: 1 Collection Time: 03/16/24 7:30 AM Result Value Ref Range Blood component type [id number] Unit number [id number] Unit ABO A Unit RH POS Crossmatch Compatible Status of unit TRANSFUSED Expiration Date [id number] BB Type Barcode 6200 Haptoglobin Collection Time: 03/16/24 7:35 AM Result Value Ref Range Haptoglobin 163 32 - 228 mg/dL Bilirubin, total Collection Time: 03/16/24 7:35 AM Result Value Ref Range Total bilirubin 0.5 0.3 - 1.2 mg/dL Bedside Glucose *Place/Obtain serum glucose if >500(>600 MRH) per glucometer. Collection Time: 03/16/24 8:02 AM Result Value Ref Range Bedside glucose 93 65 - 99 mg/dL Bedside Glucose *Place/Obtain serum glucose if >500(>600 MRH) per glucometer. Collection Time: 03/16/24 3:30 PM Result Value Ref Range Bedside glucose 116 (H) 65 - 99 mg/dL Phosphorus Collection Time: 03/16/24 5:00 PM Result Value Ref Range Phosphorus 2.8 2.4 - 4.9 mg/dL Ionized magnesium Collection Time: 03/16/24 5:00 PM Result Value Ref Range Magnesium, ionized 0.63 0.45 - 0.74 mmol/L Hemoglobin and hematocrit, blood Collection Time: 03/16/24 5:00 PM Result Value Ref Range Hemoglobin 9.3 (L) 13.0 - 17.0 g/dL Hematocrit 27.4 (L) 39 - 49 % Bedside Glucose *Place/Obtain serum glucose if >500(>600 MRH) per glucometer. Collection Time: 03/16/24 7:48 PM Result Value Ref Range Bedside glucose 288 (H) 65 - 99 mg/dL Bedside Glucose *Place/Obtain serum glucose if >500(>600 MRH) per glucometer. Collection Time: 03/16/24 9:03 PM Result Value Ref Range Bedside glucose 303 (H) 65 - 99 mg/dL Basic Metabolic Panel Collection Time: 03/17/24 5:10 AM Result Value Ref Range Sodium 139 134 - 146 mmol/L Potassium, Bld 4.6 3.5 - 5.0 mmol/L Chloride 105 98 - 109 mmol/L CO2 29 22 - 32 mmol/L Anion gap 5 5 - 15 mmol/L BUN 15 5 - 27 mg/dL Creatinine 0.87 0.60 - 1.30 mg/dL Glucose 139 (H) 65 - 99 mg/dL Calcium 8.6 8.5 - 10.5 mg/dL eGFR (CKD-EPI)non-race dependent 90 >59 ml/min/1.73sq.m Phosphorus Collection Time: 03/17/24 5:10 AM Result Value Ref Range Phosphorus 1.7 (L) 2.4 - 4.9 mg/dL Magnesium Collection Time: 03/17/24 5:10 AM Result Value Ref Range Magnesium 1.9 1.8 - 2.6 mg/dL CBC auto differential Collection Time: 03/17/24 5:10 AM Result Value Ref Range White Blood Cells 5.7 4.0 - 11.0 X10E9/L RBC count 2.48 (L) 4.10 - 5.70 X10E12/L Hemoglobin 8.3 (L) 13.0 - 17.0 g/dL Hematocrit 24.4 (L) 39 - 49 % MCV 98 80 - 100 fL MCH 33.3 27 - 34 pg MCHC 33.9 32 - 36 g/dL RDW 19.3 (H) 11.5 - 15.0 % Platelets 69 (L) 150 - 450 X10E9/L MPV 10.5 7 - 12 fL % neutrophils 81.1 % % lymphocytes 10.9 % % monocytes 7.6 % % eosinophils 0.0 % % Basophils 0.4 % Neutrophils Absolute (A) 4.6 1.5 - 6.6 X10E9/L Lymphocytes Absolute 0.6 (L) 1.0 - 3.5 X10E9/L Monocytes Absolute 0.4 0 - 0.9 X10E9/L Eosinophils Absolute 0.0 0.0 - 0.4 X10E9/L Basophils Absolute 0.0 0.0 - 0.2 X10E9/L Bedside Glucose *Place/Obtain serum glucose if >500(>600 MRH) per glucometer. Collection Time: 03/17/24 8:12 AM Result Value Ref Range Bedside glucose 139 (H) 65 - 99 mg/dL Electronically signed by: Piero Dumont Jr, MD, 03/17/2024 10:50 AM * Drew Guzman MD - 03/16/2024 1:47 PM EST [facility] Progress Note 03/16/2024 Patient Name: Brian Mandel : 1950 Hospital Day: 9 SUBJECTIVE Follow-up for lower back pain. The patient seen and examined. No acute events over night. No hematuria or change in the stool color. No abdominal pain. NPO for hypoplasty. Past Medical History: Diagnosis Date Acute coronary syndrome [place] Anxiety disorder Chronic back pain Chronic obstructive asthma with exacerbation [place]) COPD (chronic obstructive pulmonary disease) [place]) Diabetes mellitus type 2, controlled ([facility] Essential hypertension Folate deficiency anemia Heart failure ([facility]) Hypotension 11/22/2023 Megaloblastic anemia VT (myocardial infarction) ([facility]) 06/2023 Muscle weakness (generalized) Myocardial infarct ([facility] Obesity Obstructive sleep apnea SARAH (obstructive sleep apnea) Pancytopenia ([facility] Presence of coronary artery bypass graft stent Shock ([facility]) 10/05/2023 Supplemental oxygen dependent Past Surgical History: Procedure Laterality Date CARDIAC SURGERY X2 CYSTOSCOPY INSERTION STENT URETER LT Left 03/09/2024 Performed by Henna Beasley MD at [facility] Transcutaneous aortic valve replacement/Transfemoral/Carpenter N/A 11/25/2023 Performed by Henrietta Arias MD at [facility] CARDIAC CATH LABS OBJECTIVE Vital Signs: Temp: [36.1 C (97 F)-37.1 C (98.8 F)] 36.1 C (97 F) Pulse: [69-99] 70 Resp: [16-27] 20 BP: (99-135)/(56-80) 116/67 SpO2: [93 %-100 %] 98 % O2 Device: Nasal cannula O2 Flow Rate (L/min): [2 L/min-3 L/min] 2 L/min Weight: Body mass index is 37.76 kg/m . Admission weight: 83.4 kg (183 lb 13.8 oz) Wt Readings from Last 3 Encounters: 03/16/24 87.7 kg (193 lb 5.5 oz) 03/08/24 71.2 kg (157 lb) 01/20/24 85.3 kg (188 lb 1.6 oz) Input/Output: Intake/Output Summary (Last 24 hours) at 03/16/2024 1347 Last data filed at 03/16/2024 1045 Gross per 24 hour Intake -- Output 2195 ml Net -2195 ml Physical Exam: General appearance: Alert, cooperative, no distress. Eyes: PERRLA, EOM's intact Conjunctiva/corneas moist and clear, no pallor or icterus. ENT: Oropharynx clear with moist mucous membranes and no mucosal ulcerations. No thrush. External ears and nose are normal without lesions or scars. Respiratory: Normal work of breathing. No use of accessory muscles. No wheezing, rhonchi or crackles. Cardiovascular: Regular rate and rhythm, S1, S2 normal, no murmur, rub or gallop. No LE edema. Abdomen: Soft, non-tender, no masses. No hernia. No hepatosplenomegaly. Skin: No rashes, lesions or ulcers. No induration or subcutaneous nodules. Psychiatric: Mood and affect appropriate, Appropriate judgment and insight. Alert and oriented. Labs/Imaging: Recent Results (from the past 24 hours) Vitamin D 25 hydroxy Collection Time: 03/15/24 2:52 PM Result Value Ref Range Vit D, 25-Hydroxy 17.8 (L) 30 - 100 ng/mL Bedside Glucose *Place/Obtain serum glucose if >500(>600 MRH) per glucometer. Collection Time: 03/15/24 5:52 PM Result Value Ref Range Bedside glucose 141 (H) 65 - 99 mg/dL Bedside Glucose *Place/Obtain serum glucose if >500(>600 MRH) per glucometer. Collection Time: 03/15/24 9:06 PM Result Value Ref Range Bedside glucose 138 (H) 65 - 99 mg/dL Basic Metabolic Panel Collection Time: 03/16/24 5:53 AM Result Value Ref Range Sodium 140 134 - 146 mmol/L Potassium, Bld 4.1 3.5 - 5.0 mmol/L Chloride 107 98 - 109 mmol/L CO2 29 22 - 32 mmol/L Anion gap 4 (L) 5 - 15 mmol/L BUN 11 5 - 27 mg/dL Creatinine 0.65 0.60 - 1.30 mg/dL Glucose 90 65 - 99 mg/dL Calcium 8.3 (L) 8.5 - 10.5 mg/dL eGFR (CKD-EPI)non-race dependent >90 >59 ml/min/1.73sq.m Phosphorus Collection Time: 03/16/24 5:53 AM Result Value Ref Range Phosphorus 2.0 (L) 2.4 - 4.9 mg/dL Magnesium Collection Time: 03/16/24 5:53 AM Result Value Ref Range Magnesium 1.4 (L) 1.8 - 2.6 mg/dL CBC auto differential Collection Time: 03/16/24 5:53 AM Result Value Ref Range White Blood Cells 6.2 4.0 - 11.0 X10E9/L RBC count 2.05 (L) 4.10 - 5.70 X10E12/L Hemoglobin 6.7 (LL) 13.0 - 17.0 g/dL Hematocrit 20.3 (L) 39 - 49 % MCV 99 80 - 100 fL MCH 33.0 27 - 34 pg MCHC 33.3 32 - 36 g/dL RDW 19.3 (H) 11.5 - 15.0 % Platelets 75 (L) 150 - 450 X10E9/L MPV 10.1 7 - 12 fL % neutrophils 59.6 % % lymphocytes 25.8 % % monocytes 11.6 % % eosinophils 2.0 % % Basophils 1.0 % Neutrophils Absolute (A) 3.7 1.5 - 6.6 X10E9/L Lymphocytes Absolute 1.6 1.0 - 3.5 X10E9/L Monocytes Absolute 0.7 0 - 0.9 X10E9/L Eosinophils Absolute 0.1 0.0 - 0.4 X10E9/L Basophils Absolute 0.1 0.0 - 0.2 X10E9/L Type and screen(includes indirect delfin) Collection Time: 03/16/24 7:30 AM Result Value Ref Range ABO A RH Positive Antibody Screen Negative Crossmatch RBC:Number of Units: 1 Collection Time: 03/16/24 7:30 AM Result Value Ref Range Blood component type [id number] Unit number [id number] Unit ABO A Unit RH POS Crossmatch Compatible Status of unit ISSUED Expiration Date [id number] BB Type Barcode 6200 Haptoglobin Collection Time: 03/16/24 7:35 AM Result Value Ref Range Haptoglobin 163 32 - 228 mg/dL Bilirubin, total Collection Time: 03/16/24 7:35 AM Result Value Ref Range Total bilirubin 0.5 0.3 - 1.2 mg/dL Bedside Glucose *Place/Obtain serum glucose if >500(>600 MRH) per glucometer. Collection Time: 03/16/24 8:02 AM Result Value Ref Range Bedside glucose 93 65 - 99 mg/dL Microbiology Results No results found for the last 168 hours. No results found. All available laboratory, imaging, and microbiology data has been personally reviewed in detail, and accessible in full per EMR. Medications: [Transfer Hold] amoxicillin-pot clavulanate, 1 tablet, oral, Q12H LYNN [Transfer Hold] atorvastatin, 20 mg, oral, Nightly [Transfer Hold] cyanocobalamin, 500 mcg, oral, Daily [Transfer Hold] furosemide, 20 mg, oral, BID AC [Transfer Hold] insulin lispro, 2-10 Units, subcutaneous, With meals and nightly [Transfer Hold] melatonin, 3 mg, oral, Nightly [Transfer Hold] midodrine, 5 mg, oral, TID Infusion: [Transfer Hold] sodium chloride 0.9 %, 20 mL/hr PRN medications: [Transfer Hold] acetaminophen [Transfer Hold] calcium gluconate OR [Transfer Hold] calcium gluconate OR [Transfer Hold] calcium gluconate [Transfer Hold] dextrose [Transfer Hold] dextrose 50 % in water (D50W) [Transfer Hold] glucagon (human recombinant) [Transfer Hold] ipratropium-albuteroL [Transfer Hold] magnesium sulfate OR [Transfer Hold] magnesium sulfate [Transfer Hold] ondansetron (PF) [Transfer Hold] oxyCODONE-acetaminophen [Transfer Hold] potassium chloride OR [Transfer Hold] potassium chloride [Transfer Hold] potassium chloride in water OR [Transfer Hold] potassium chloride in water [Transfer Hold] sennosides-docusate sodium [Transfer Hold] sodium phosphate IV OR [Transfer Hold] sodium phosphate IV - central line OR [Transfer Hold] sod phos di, mono-K phos mono [Transfer Hold] sodium chloride 0.9 % ASSESSMENT and plan: Active Hospital Problems Diagnosis Date Noted Date Diagnosed Pathological fracture of thoracic vertebra with delayed healing 03/14/2024 Intractable back pain 03/14/2024 Gross hematuria 03/13/2024 Staghorn calculus 03/13/2024 Acute renal failure (ARF) ([facility]) 03/08/2024 History of myocardial infarction 09/13/2023 Spondylosis of lumbosacral region without myelopathy or radiculopathy 08/24/2023 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 07/23/2023 Major depressive disorder 09/26/2018 Chronic diastolic congestive heart failure ([facility]) 09/26/2018 Resolved Problems No resolved problems to display. - Septic shock-resolved - Left-sided staghorn nephrolithiasis with partial obstruction - Phimosis and panurethral stricture-s/p dilation - s/p cystoscopy and left ureteral stent 03/09/2024 Urine and blood cultures are showing no growth during this admission. - appreciate ID input. Finished 7 days of IV cefepime and will transitioned to 5 days of p.o. Augmentin. - Acute blood loss anemia in the setting of Gross hematuria S/p 1 unit PRBC 03/10/2024 Hgb today is 6.7. Will give 1 unit PRBC and check peripheral smear, haptoglobin and bilirubin. Monitor H&H CRISTINE due to ATN Resolved Hypotension Continue midodrine 5 mg p.o. t.i.d. CAD s/p CABG and KARL to distal Left main-ostial LXC 06/2023 in the setting of NSTEMI Severe symptomatic aortic valve stenosis with recurrent syncope s/p 23 mm Carpenter Jose Cruz 3 TAVR Chronic HFpEF: No acute chest pain. Continue to hold aspirin and ticagrelor in the setting of gross hematuria. Will resume after kyphoplasty if cleared by Orthopedic surgery and Urology. Simvastatin 40 mg p.o. q.h.s. Lasix 20 mg po BID. Diabetes mellitus type 2 Metformin pioglitazone on hold Blood glucose is well-controlled Thrombocytopenia Likely due to infection versus due to antibiotics Monitor T12 compression fracture Back pain is worsening Plan for kyphoplasty today. Chronic hypoxic respiratory failure: SARAH: On 3L O2 NC. Stable. Hypomagnesemia: Replace and monitor. DVT prophylaxis: SCDs. No pharmacological prophylaxis due to gross hematuria. Code Status: Full code. Disposition: Home in 1-2 days if hemoglobin remained stable and if his pain is well-controlled. Current care plan discussed in detail with the patient. He verbalized understanding. Further management will follow based on the clinical course of the patient and results of ongoing evaluation Electronically signed by: DREW GUZMAN MD 03/16/2024 Preferred contact method: #1. [employer] chat #2. [facility] team pager Available from 7 am to 7 pm For after hours, please page [facility] night team. Disclaimer Note: To increase efficiency, your provider may have prepared this document using voice recognition technology. In that case, if a word or phrase is confusing, or does not make sense, thisis likely due to a recognition error within the program which was not discovered during the provider s review. If you believe an error has occurred, please notify your provider s office at your earliest convenience, so we can correct any mistakes. * Drew Guzman MD - 03/15/2024 3:27 PM EST [facility] Progress Note 03/15/2024 Patient Name: Brian Mandel : 1950 Hospital Day: 8 SUBJECTIVE Follow-up for lower back pain. The patient seen and examined. No acute events over night. Hematuria has resolved. The patient was evaluated by Orthopedic surgery for kyphoplasty. Past Medical History: Diagnosis Date Acute coronary syndrome [place] Anxiety disorder Chronic back pain Chronic obstructive asthma with exacerbation [place]) COPD (chronic obstructive pulmonary disease) [place]) Diabetes mellitus type 2, controlled ([facility] Essential hypertension Folate deficiency anemia Heart failure [place] Hypotension 11/22/2023 Megaloblastic anemia VT (myocardial infarction) ([facility] 06/2023 Muscle weakness (generalized) Myocardial infarct ([facility] Obesity Obstructive sleep apnea SARAH (obstructive sleep apnea) Pancytopenia ([facility] Presence of coronary artery bypass graft stent Shock ([facility]) 10/05/2023 Supplemental oxygen dependent Past Surgical History: Procedure Laterality Date CARDIAC SURGERY X2 CYSTOSCOPY INSERTION STENT URETER LT Left 03/09/2024 Performed by Henna Beasley MD at [facility] Transcutaneous aortic valve replacement/Transfemoral/Carpenter N/A 11/25/2023 Performed by Henrietta Arias MD at [facility] CARDIAC CATH LABS OBJECTIVE Vital Signs: Temp: [36.2 C (97.2 F)-36.9 C (98.5 F)] 36.4 C (97.6 F) Pulse: [63-88] 69 Resp: [14-21] 16 BP: (92-124)/(57-86) 102/61 SpO2: [95 %-100 %] 99 % O2 Device: Nasal cannula Weight: Body mass index is 37.76 kg/m . Admission weight: 83.4 kg (183 lb 13.8 oz) Wt Readings from Last 3 Encounters: 03/15/24 87.7 kg (193 lb 5.5 oz) 03/08/24 71.2 kg (157 lb) 01/20/24 85.3 kg (188 lb 1.6 oz) Input/Output: Intake/Output Summary (Last 24 hours) at 03/15/2024 1528 Last data filed at 03/15/2024 1400 Gross per 24 hour Intake 301.83 ml Output 1250 ml Net -948.17 ml Physical Exam: General appearance: Alert, cooperative, no distress. Eyes: PERRLA, EOM's intact Conjunctiva/corneas moist and clear, no pallor or icterus. ENT: Oropharynx clear with moist mucous membranes and no mucosal ulcerations. No thrush. External ears and nose are normal without lesions or scars. Respiratory: Normal work of breathing. No use of accessory muscles. No wheezing, rhonchi or crackles. Cardiovascular: Regular rate and rhythm, S1, S2 normal, no murmur, rub or gallop. No LE edema. Abdomen: Soft, non-tender, no masses. No hernia. No hepatosplenomegaly. Skin: No rashes, lesions or ulcers. No induration or subcutaneous nodules. Psychiatric: Mood and affect appropriate, Appropriate judgment and insight. Alert and oriented. Labs/Imaging: Recent Results (from the past 24 hours) Bedside Glucose *Place/Obtain serum glucose if >500(>600 MRH) per glucometer. Collection Time: 03/14/24 4:02 PM Result Value Ref Range Bedside glucose 121 (H) 65 - 99 mg/dL Bedside Glucose *Place/Obtain serum glucose if >500(>600 MRH) per glucometer. Collection Time: 03/14/24 8:15 PM Result Value Ref Range Bedside glucose 118 (H) 65 - 99 mg/dL Magnesium Collection Time: 03/14/24 8:54 PM Result Value Ref Range Magnesium 1.8 1.8 - 2.6 mg/dL Basic Metabolic Panel Collection Time: 03/15/24 5:42 AM Result Value Ref Range Sodium 139 134 - 146 mmol/L Potassium, Bld 4.1 3.5 - 5.0 mmol/L Chloride 105 98 - 109 mmol/L CO2 29 22 - 32 mmol/L Anion gap 5 5 - 15 mmol/L BUN 12 5 - 27 mg/dL Creatinine 0.87 0.60 - 1.30 mg/dL Glucose 109 (H) 65 - 99 mg/dL Calcium 8.4 (L) 8.5 - 10.5 mg/dL eGFR (CKD-EPI)non-race dependent 90 >59 ml/min/1.73sq.m Phosphorus Collection Time: 03/15/24 5:42 AM Result Value Ref Range Phosphorus 2.1 (L) 2.4 - 4.9 mg/dL Magnesium Collection Time: 03/15/24 5:42 AM Result Value Ref Range Magnesium 2.2 1.8 - 2.6 mg/dL CBC auto differential Collection Time: 03/15/24 5:42 AM Result Value Ref Range White Blood Cells 5.2 4.0 - 11.0 X10E9/L RBC count 2.20 (L) 4.10 - 5.70 X10E12/L Hemoglobin 7.4 (L) 13.0 - 17.0 g/dL Hematocrit 21.8 (L) 39 - 49 % MCV 99 80 - 100 fL MCH 33.5 27 - 34 pg MCHC 33.8 32 - 36 g/dL RDW 19.6 (H) 11.5 - 15.0 % Platelets 73 (L) 150 - 450 X10E9/L MPV 9.6 7 - 12 fL % neutrophils 56.1 % % lymphocytes 27.7 % % monocytes 13.2 % % eosinophils 1.9 % % Basophils 1.1 % Neutrophils Absolute (A) 2.9 1.5 - 6.6 X10E9/L Lymphocytes Absolute 1.5 1.0 - 3.5 X10E9/L Monocytes Absolute 0.7 0 - 0.9 X10E9/L Eosinophils Absolute 0.1 0.0 - 0.4 X10E9/L Basophils Absolute 0.1 0.0 - 0.2 X10E9/L Bedside Glucose *Place/Obtain serum glucose if >500(>600 MRH) per glucometer. Collection Time: 03/15/24 8:34 AM Result Value Ref Range Bedside glucose 91 65 - 99 mg/dL Bedside Glucose *Place/Obtain serum glucose if >500(>600 MRH) per glucometer. Collection Time: 03/15/24 12:31 PM Result Value Ref Range Bedside glucose 145 (H) 65 - 99 mg/dL Microbiology Results No results found for the last 168 hours. No results found. All available laboratory, imaging, and microbiology data has been personally reviewed in detail, and accessible in full per EMR. Medications: amoxicillin-pot clavulanate, 1 tablet, oral, Q12H LYNN atorvastatin, 20 mg, oral, Nightly cyanocobalamin, 500 mcg, oral, Daily furosemide, 20 mg, oral, BID AC insulin lispro, 2-10 Units, subcutaneous, With meals and nightly melatonin, 3 mg, oral, Nightly midodrine, 5 mg, oral, TID Infusion: PRN medications: acetaminophen calcium gluconate OR calcium gluconate OR calcium gluconate dextrose dextrose 50 % in water (D50W) glucagon (human recombinant) ipratropium-albuteroL magnesium sulfate OR magnesium sulfate ondansetron (PF) oxyCODONE-acetaminophen potassium chloride OR potassium chloride potassium chloride in water OR potassium chloride in water sennosides-docusate sodium sodium phosphate IV OR sodium phosphate IV - central line OR sod phos di, mono-K phos mono ASSESSMENT and plan: Active Hospital Problems Diagnosis Date Noted Date Diagnosed Pathological fracture of thoracic vertebra with delayed healing 03/14/2024 Intractable back pain 03/14/2024 Gross hematuria 03/13/2024 Staghorn calculus 03/13/2024 Acute renal failure (ARF) [place] 03/08/2024 History of myocardial infarction 09/13/2023 Spondylosis of lumbosacral region without myelopathy or radiculopathy 08/24/2023 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 07/23/2023 Major depressive disorder 09/26/2018 Chronic diastolic congestive heart failure ([facility] 09/26/2018 Resolved Problems No resolved problems to display. - Septic shock-resolved - Left-sided staghorn nephrolithiasis with partial obstruction - Phimosis and panurethral stricture-s/p dilation - s/p cystoscopy and left ureteral stent 03/09/2024 Urine and blood cultures are showing no growth during this admission. - appreciate ID input. Finished 7 days of IV cefepime and will transitioned to 5 days of p.o. Augmentin. - Acute blood loss anemia in the setting of Gross hematuria S/p 1 unit PRBC 03/10/2024 Monitor H&H CRISTINE due to ATN Resolved Hypotension Continue midodrine 5 mg p.o. t.i.d. CAD s/p CABG and KARL to distal Left main-ostial LXC 06/2023 in the setting of NSTEMI Severe symptomatic aortic valve stenosis with recurrent syncope s/p 23 mm Carpenter Jose Cruz 3 TAVR Chronic HFpEF: No acute chest pain. Continue to hold aspirin and ticagrelor in the setting of gross hematuria. Will resume after kyphoplasty if cleared by Orthopedic surgery and Urology. Simvastatin 40 mg p.o. q.h.s. Lasix 20 mg po BID. Diabetes mellitus type 2 Metformin pioglitazone on hold Blood glucose is well-controlled Thrombocytopenia Likely due to infection versus due to antibiotics Monitor History of T12 compression fracture Back pain is worsening Plan for kyphoplasty tomorrow. NPO after midnight. DVT prophylaxis: SCDs. No pharmacological prophylaxis due to gross hematuria. Code Status: Full code. Disposition: Home in 2 days if hemoglobin remained stable and if his pain is well-controlled. Current care plan discussed in detail with the patient. He verbalized understanding. Further management will follow based on the clinical course of the patient and results of ongoing evaluation Electronically signed by: DREW GUZMAN MD 03/15/2024 Preferred contact method: #1. [employer] chat #2. [facility] team pager Available from 7 am to 7 pm For after hours, please page [facility] night team. Disclaimer Note: To increase efficiency, your provider may have prepared this document using voice recognition technology. In that case, if a word or phrase is confusing, or does not make sense, thisis likely due to a recognition error within the program which was not discovered during the provider s review. If you believe an error has occurred, please notify your provider s office at your earliest convenience, so we can correct any mistakes. * Jack Nelson MD - 03/15/2024 12:48 PM EST Images from the original note were not included. Division of Infectious Diseases - Progress Note Please contact us via [employer] chat. After hours, call [phone] Patient name: Brian Mandel Patient Today's Date and Time: 03/15/2024, 12:48 PM Admission Date: 03/08/2024 Impression : Left-sided staghorn nephrolithiasis with partial obstruction and suspected pyelonepritis with negative urine culture Status post cystoscopy and left ureteral stent placement on 03/09/2024. Urine and blood cultures negative Previously in July 2023, the patient had blood cultures that revealed methicillin-resistant Staphylococcus aureus. No clear etiology was established at that time. Patient has history of Candiduria and bacteriuria with Proteus and more remotely (>1yr ago) with Pseudomonas aeruginosa T12 fracture As long as no hardware is planned, the risk for an infection related to such procedure is fairly low and no absolute contraindication. Patient is not bacteremic and was not bacteremic on admission, but he does have a history of Staph bacteremia. Acute kidney injury. Resolved Sepsis with septic shock. Resolved. Off pressors Phimosis and panurethral stricture. Status post cystoscopy and dilatation on 03/09/2024. Now that the call is removed he has trouble urinating again, but dysuria is improving slowly Recommendations: The patient has received 6 days of cefepime. Blood cultures and urine culture are negative. Given the fact in the fact that the most recent cultures did not reveal pseudomonas, I switched himto oral Augmentin for a total of 5 days. Pre-procedure he will need antibiotics but at this point I do not believe we need to treat him for an extensive period of time Subjective Interval History: Alert. Afebrile. No leukocytosis. Low back pain is the same Was evaluated by Dr Dumont for kyphoplasty of T12 compression fracture. Hematuria has cleared, call was removed yesterday Objective Physical Examination : BP 102/61 Pulse 69 Temp 36.4 C (97.6 F) (Oral) Resp 16 Ht 152.4 cm (5') Wt 87.7 kg (193 lb 5.5 oz) SpO2 99% BMI 37.76 kg/m Temperature Range: Temp: 36.4 C (97.6 F) Temp Av.5 C (97.7 F) Min: 36.2 C (97.2 F) Max: 36.9 C(98.5 F) General Appearance: Awake, alert, and in no apparent distress, nontoxic. Obese, pale Pulmonary/Chest: Clear to auscultation, without wheezes, rales, no rhonchi Cardiovascular: Regular rate and rhythm without murmurs Abdomen: soft, non-tender, protuberant Tender lumbar area midline and bilateral CVA tenderness Extremities: No cyanosis, edema, no joint effusions. Neurologic: moves extremities, sensation intact Skin: Warm and dry Laboratory data: I have independently reviewed the following labs: Results from last 7 days Lab Units 03/15/24 0542 03/14/24 0622 03/13/24 0400 WBC X10E9/L 5.2 6.3 5.6 HEMOGLOBIN g/dL 7.4* 9.1* 7.5* HEMATOCRIT % 21.8* 27.2* 22.0* MCV fL 99 99 98 PLATELETS X10E9/L 73* 82* 93* NEUTROS ABS X10E9/L 2.9 3.9 3.5 LYMPHS ABS AUTO X10E9/L 1.5 1.5 1.4 MONOS ABS AUTO X10E9/L 0.7 0.7 0.6 EOS ABS AUTO X10E9/L 0.1 0.1 0.1 BASOS ABS AUTO X10E9/L 0.1 0.0 0.0 Results from last 7 days Lab Units 03/15/24 0542 03/14/24 0622 03/13/24 0400 03/11/24 0330 03/10/24 0215 03/09/24 0345 03/08/24 2235 03/08/24 1332 SODIUM mmol/L 139 140 139 < > 140 140 -- 139 POTASSIUM mmol/L 4.1 4.8 4.4 < > 4.1 3.9 < > 3.6 CHLORIDE mmol/L 105 108 108 < > 108 107 -- 104 CO2 mmol/L 29 26 26 < > 24 21* -- 20* BUN mg/dL 12 10 11 < > 36* 53* -- 67* CREATININE mg/dL 0.87 0.75 0.82 < > 1.95* 3.89* -- 5.53* CALCIUM mg/dL 8.4* 8.9 8.3* < > 8.4* 8.3* -- 7.8* ALK PHOS U/L -- -- -- -- 120 126 -- 136* ALT U/L -- -- -- -- 9 9 -- 11 AST U/L -- -- -- -- 14 14 -- 14 < > = values in this interval not displayed. Results from last 7 days Lab Units 03/08/24 1332 PROCALCITONIN ng/mL 0.26* Imaging Studies: No results found. Cultures: Microbiology Results Procedure Component Value Units Date/Time Mrsa Pcr nasal swab [[id number]] Collected: 03/08/24 1345 Specimen: Nasal Updated: 03/08/24 1554 Mrsa PCR Negative Medications: amoxicillin-pot clavulanate, 1 tablet, oral, Q12H LYNN atorvastatin, 20 mg, oral, Nightly cyanocobalamin, 500 mcg, oral, Daily furosemide, 20 mg, oral, BID AC insulin lispro, 2-10 Units, subcutaneous, With meals and nightly melatonin, 3 mg, oral, Nightly midodrine, 5 mg, oral, TID This progress note was completed using a voice taffy puller system. Every effort was made to ensure accuracy; however, inadvertent computerized taffy puller errors may be present. Thank you for allowing us to participate in the care of this patient. Jack Nelson MD [facility] Message me via [employer] secure chat * Earl Grullon RN - 03/14/2024 11:40 PM EST Images from the original note were not included. FOLLOW-UP: Post-Intensive Care Rounding Note Patient: Brian Mandel : 1950 Age: 73 y.o. Length of Stay: 7 days Admission Diagnosis: Acute renal failure (ARF) (CMS-HCC) [N17.9] Reviewing patient due to his recent transfer out from Intensive Care. Recorded vital signs are stable and the patient is not noted to be in any apparent distress. Telemetry and monitoring noted. Staff may call with any issues or concerns regarding his clinical presentation or stability. Thank you, Earl Grullon RN Rapid Response: [facility] * Henna Beasley MD - 03/14/2024 9:10 PM EST Images from the original note were not included. Jr. Paris Gregor, M.D., Alex Santana M.D., Kye Sylvester M.D., Harjinder Burden M.D., Iva Tucker M.D., Henna Beasley M.D., Noe Sheppard M.D., Skyler Lake M.D., Milagros Butler MD Urology Progress Note Subjective: pt complains of gross hematuria. Call removed today, he is voiding well. Weight: 86.8 kg (191 lb 5.8 oz) Patient Vitals for the past 24 hrs: BP Temp Temp src Pulse Resp SpO2 Weight 03/14/242012 103/58 36.9 C (98.5 F) Oral 74 17 97 % -- 03/14/24 1820 103/63 -- -- 81 19 99 % -- 03/14/24 1600 105/59 36.5 C (97.7 F) Oral 79 15 98 % -- 03/14/24 1400 100/59 -- -- 77 16 98 % -- 03/14/24 1200 102/60 36.8 C (98.3 F) Axillary 72 24 97 % -- 03/14/24 1000 135/65 -- -- 82 24 92 % -- 03/14/24 0800 110/68 36.9 C (98.5 F) Axillary 72 23 98 % -- 03/14/24 0600 114/64 -- -- 74 25 100 % -- 03/14/24 0326 -- -- -- -- -- -- 86.8 kg (191 lb 5.8 oz) 03/14/24 0310 103/64 36.6 C (97.9 F) Oral 64 15 98 % -- 03/14/24 0205 108/68 -- -- 62 15 98 % -- 03/13/24 2310 135/73 36.9 C (98.4 F) Axillary 65 19 100 % -- 03/13/24 2200 98/63 -- -- 61 13 99 % -- Intake/Output Summary (Last 24 hours) at 03/14/20242109 Last data filed at 03/14/2024 192 Gross per 24 hour Intake -- Output 1550 ml Net -1550 ml Results from last 7 days Lab Units 03/14/24201403/14/24 0750 03/14/24 0622 03/13/24 1146 03/13/24 0400 03/12/24 0310 03/12/24 0200 POTASSIUM mmol/L -- -- 4.8 -- 4.4 -- 4.4 CHLORIDE mmol/L -- -- 108 -- 108 -- 110* CO2 mmol/L -- -- 26 -- 26 -- 25 BUN mg/dL -- -- 10 -- 11 -- 14 CREATININE mg/dL -- -- 0.75 -- 0.82 -- 0.86 BEDSIDE GLUCOSE mg/dL 118* < > -- < > -- < > -- GLUCOSE mg/dL -- -- 81 -- 92 -- 91 CALCIUM mg/dL -- -- 8.9 -- 8.3* -- 8.3* < > = values in this interval not displayed. Results from last 7 days Lab Units 03/14/24 0603/13/24 0400 03/12/24 0200 WBC X10E9/L 6.3 5.6 5.9 HEMOGLOBIN g/dL 9.1* 7.5* 7.9* HEMATOCRIT % 27.2* 22.0* 23.2* PLATELETS X10E9/L 82* 93* 98* Lab Results Component Value Date SPECIFICGRA 1.025 03/08/2024 LEUKOCYTE Small (A) 03/08/2024 NITRITEN Negative 03/08/2024 PHNUR 5.5 03/08/2024 PROTEINNUR 100 (A) 03/08/2024 GLU 118 (H) 03/14/2024 KETONESNUR Negative 03/08/2024 UROBILINOGEN 0.2 03/08/2024 BLOODHGBNU Small (A) 03/08/2024 Additional Lab/culture results: Physical Exam: General: A&O, NAD Resp: non-labored Abdomen: soft, non tender, Non-distended. Interval Imaging Findings: Impression: 73-yo M s/p L ureteral stent placement for staghorn stone and concern for infection, found to have multiple urethral strictures Plan: call removed today, he is voiding well. He has concerns about gross hematuria, states he hasnot had this with stents in the past. I explained gross hematuria, even with clots, is normal the entire time he has a stent. He has follow up scheduled in our [place] office at his request in March to discuss stone treatment. He understands his stent must be removed in a timely manner. Henna Beasley MD [facility] 9:10 PM 03/14/2024 * Jack Nelson MD - 03/14/2024 4:50 PM EST Images from the original note were not included. Division of Infectious Diseases - Progress Note Please contact us via [employer] chat. After hours, call [phone] Patient name: Brian Mandel Patient Today's Date and Time: 03/14/2024, 4:50 PM Admission Date: 03/08/2024 Impression : Left-sided staghorn nephrolithiasis with partial obstruction. Status post cystoscopy and left ureteral stent placement on 03/09/2024. Urine and blood cultures reveal no growth to date. Previously in July 2023, the patient had blood cultures that revealed methicillin-resistant Staphylococcus aureus. Patient has history of Candiduria and bacteriuria with Proteus and more remotely (>1yr ago) with Pseudomonas aeruginosa T12 fracture As long as no hardware is planned, the risk for an infection related to such procedure is fairly low and no absolute contraindication. Patient is not bacteremic and was not bacteremic on admission, but he does have a history of Staph bacteremia. Acute kidney injury. Resolved Sepsis with septic shock. Resolved. Off pressors Phimosis and panurethral stricture. Status post cystoscopy and dilatation on 03/09/2024. Now that the call is removed he has trouble urinating again Hypotension. Improved and no longer requiring vasopressors. Recommendations: The patient has received 5 days of cefepime, today is day 6. Blood cultures and urine culture are negative. Given the fact in the fact that the most recent cultures did not reveal pseudomonas, will switch him to oral Augmentin Subjective Interval History: Alert. Afebrile. No leukocytosis. Low back pain is the same Was evaluated by Dr Dumont for kyphoplasty of T12 compression fracture. Continues to have hematuria Call was removed Objective Physical Examination : BP 105/59 Pulse 79 Temp 36.8 C (98.3 F) (Axillary) Resp 15 Ht 152.4 cm (5') Wt 86.8 kg (191 lb 5.8 oz) SpO2 98% BMI 37.37 kg/m Temperature Range: Temp: 36.8 C (98.3 F) Temp Av.8 C (98.3 F) Min: 36.6 C (97.9 F) Max: 36.9 C(98.5 F) General Appearance: Awake, alert, and in no apparent distress, nontoxic. Obese, pale Pulmonary/Chest: Clear to auscultation, without wheezes, rales, no rhonchi Cardiovascular: Regular rate and rhythm without murmurs Abdomen: soft, non-tender, protuberant Tender upper lumbar area Extremities: No cyanosis, edema, no joint effusions. Neurologic: moves extremities, sensation intact Skin: Warm and dry Laboratory data: I have independently reviewed the following labs: Results from last 7 days Lab Units 03/14/24 0622 03/13/24 0400 03/12/24 0200 WBC X10E9/L 6.3 5.6 5.9 HEMOGLOBIN g/dL 9.1* 7.5* 7.9* HEMATOCRIT % 27.2* 22.0* 23.2* MCV fL 99 98 99 PLATELETS X10E9/L 82* 93* 98* NEUTROS ABS X10E9/L 3.9 3.5 3.7 LYMPHS ABS AUTO X10E9/L 1.5 1.4 1.4 MONOS ABS AUTO X10E9/L 0.7 0.6 0.6 EOS ABS AUTO X10E9/L 0.1 0.1 0.1 BASOS ABS AUTO X10E9/L 0.0 0.0 0.0 Results from last 7 days Lab Units 03/14/24 0622 03/13/24 0400 03/12/24 0200 03/11/24 0330 03/10/24 0215 03/09/24 0345 03/08/24 2235 03/08/24 1332 SODIUM mmol/L 140 139 141 < > 140 140 -- 139 POTASSIUM mmol/L 4.8 4.4 4.4 < > 4.1 3.9 < > 3.6 CHLORIDE mmol/L 108 108 110* < > 108 107 -- 104 CO2 mmol/L 26 26 25 < > 24 21* -- 20* BUN mg/dL 10 11 14 < > 36* 53* -- 67* CREATININE mg/dL 0.75 0.82 0.86 < > 1.95* 3.89* -- 5.53* CALCIUM mg/dL 8.9 8.3* 8.3* < > 8.4* 8.3* -- 7.8* ALK PHOS U/L -- -- -- -- 120 126 -- 136* ALT U/L -- -- -- -- 9 9 -- 11 AST U/L -- -- -- -- 14 14 -- 14 < > = values in this interval not displayed. Results from last 7 days Lab Units 03/08/24 1332 PROCALCITONIN ng/mL 0.26* Results from last 7 days Lab Units 03/08/24 0828 03/08/24 0600 COLOR -- YELLOW TURBIDITY -- CLOUDY* SPECIFIC GRAVITY -- 1.025 SPECIFIC GRAVITY ENMANUEL 1.025 -- NITRITE -- Negative PH URINE -- 5.5 LEUKOCYTE ESTERASE -- SMALL* LEUKOCYTE ESTERASE ENMANUEL Small* -- PROTEIN mg/dL -- 30* KETONES (URINE) mg/dL -- Negative UROBILINOGEN eu/dL -- 0.2 UROBILINOGEN ENMANUEL eu/dL 0.2 -- BLDHGB -- SMALL* RBC UA /hpf -- 0 WBC UA /hpf -- 35* Imaging Studies: No results found. Cultures: Microbiology Results Procedure Component Value Units Date/Time Mrsa Pcr nasal swab [[id number]] Collected: 03/08/24 1345 Specimen: Nasal Updated: 03/08/24 1554 Mrsa PCR Negative Urine culture [[id number]] Collected: 03/08/24 0600 Specimen: Urine, Clean Catch Midstream Updated: 03/09/24 0803 Culture 50-100,000 ORGANISMS/ML NORMAL UROGENITAL CLARY Blood culture [[id number]] Collected: 03/08/24 0318 Specimen: Blood Updated: 03/13/24 1044 Culture NO GROWTH 5 DAYS Blood culture [[id number]] Collected: 03/08/24 0307 Specimen: Blood Updated: 03/13/24 1044 Culture NO GROWTH 5 DAYS Medications: atorvastatin, 20 mg, oral, Nightly cefepime (MAXIPIME) IV, 2,000 mg, intravenous, Q8H cyanocobalamin, 500 mcg, oral, Daily furosemide, 20 mg, oral, BID AC insulin lispro, 2-10 Units, subcutaneous, Q4H melatonin, 3 mg, oral, Nightly midodrine, 5 mg, oral, TID This progress note was completed using a voice taffy puller system. Every effort was made to ensure accuracy; however, inadvertent computerized taffy puller errors may be present. Thank you for allowing us to participate in the care of this patient. Jack Nelson MD [facility] Message me via [employer] secure chat * Drew Guzman MD - 03/14/2024 2:25 PM EST Images from the original note were not included. [facility] Hospital[facility] Progress Note 03/14/2024 Patient Name: Brian Mandel : 1950 Hospital Day: 7 SUBJECTIVE Follow-up for gross hematuria The patient seen and examined. No acute events over night. Call catheter was discontinued this morning by Urology. The patient is complaining of worsening lower back pain in the setting of known [id number] fracture and is asking for neurosurgery evaluation. Denies any chest pain or shortness for breath. Past Medical History: Diagnosis Date Acute coronary syndrome [place] Anxiety disorder Chronic back pain Chronic obstructive asthma with exacerbation [place] COPD (chronic obstructive pulmonary disease) [place]) Diabetes mellitus type 2, controlled ([facility] Essential hypertension Folate deficiency anemia Heart failure ([facility]) Hypotension 11/22/2023 Megaloblastic anemia VT (myocardial infarction) ([facility] 06/2023 Muscle weakness (generalized) Myocardial infarct ([facility]) Obesity Obstructive sleep apnea SARAH (obstructive sleep apnea) Pancytopenia ([facility] Presence of coronary artery bypass graft stent Shock ([facility]) 10/05/2023 Supplemental oxygen dependent Past Surgical History: Procedure Laterality Date CARDIAC SURGERY X2 CYSTOSCOPY INSERTION STENT URETER LT Left 03/09/2024 Performed by Henna Beasley MD at [facility] Transcutaneous aortic valve replacement/Transfemoral/Carpenter N/A 11/25/2023 Performed by Henrietta Arias MD at [facility] CARDIAC CATH LABS OBJECTIVE Vital Signs: Temp: [36.4 C (97.6 F)-36.9 C (98.5 F)] 36.8 C (98.3 F) Pulse: [61-82] 72 Resp: [13-25] 24 BP: (98-138)/(55-75) 102/60 SpO2: [92 %-100 %] 97 % O2 Device: Nasal cannula O2 Flow Rate (L/min): [3 L/min] 3 L/min Weight: Body mass index is 37.37 kg/m . Admission weight: 83.4 kg (183 lb 13.8 oz) Wt Readings from Last 3 Encounters: 03/14/24 86.8 kg (191 lb 5.8 oz) 03/08/24 71.2 kg (157 lb) 01/20/24 85.3 kg (188 lb 1.6 oz) Input/Output: Intake/Output Summary (Last 24 hours) at 03/14/2024 1425 Last data filed at 03/14/2024 1400 Gross per 24 hour Intake 549.89 ml Output 1700 ml Net -1150.11 ml Physical Exam: General appearance: Alert, cooperative, no distress. Eyes: PERRLA, EOM's intact Conjunctiva/corneas moist and clear, no pallor or icterus. Respiratory: Normal work of breathing. No use of accessory muscles. No wheezing, rhonchi or crackles. Cardiovascular: Regular rate and rhythm, S1, S2 normal, no murmur, rub or gallop. No LE edema. Abdomen: Soft, non-tender, no masses. No hernia. No hepatosplenomegaly. Skin: No rashes, lesions or ulcers. No induration or subcutaneous nodules. Psychiatric: Mood and affect appropriate, Appropriate judgment and insight. Alert and oriented. Labs/Imaging: Recent Results (from the past 24 hours) Bedside Glucose *Place/Obtain serum glucose if >500(>600 MRH) per glucometer. Collection Time: 03/13/24 5:13 PM Result Value Ref Range Bedside glucose 114 (H) 65 - 99 mg/dL Bedside Glucose *Place/Obtain serum glucose if >500(>600 MRH) per glucometer. Collection Time: 03/13/24 8:03 PM Result Value Ref Range Bedside glucose 172 (H) 65 - 99 mg/dL Bedside Glucose *Place/Obtain serum glucose if >500(>600 MRH) per glucometer. Collection Time: 03/13/24 11:10 PM Result Value Ref Range Bedside glucose 104 (H) 65 - 99 mg/dL Bedside Glucose *Place/Obtain serum glucose if >500(>600 MRH) per glucometer. Collection Time: 03/14/24 3:40 AM Result Value Ref Range Bedside glucose 92 65 - 99 mg/dL Basic Metabolic Panel Collection Time: 03/14/24 6:22 AM Result Value Ref Range Sodium 140 134 - 146 mmol/L Potassium, Bld 4.8 3.5 - 5.0 mmol/L Chloride 108 98 - 109 mmol/L CO2 26 22 - 32 mmol/L Anion gap 6 5 - 15 mmol/L BUN 10 5 - 27 mg/dL Creatinine 0.75 0.60 - 1.30 mg/dL Glucose 81 65 - 99 mg/dL Calcium 8.9 8.5 - 10.5 mg/dL eGFR (CKD-EPI)non-race dependent >90 >59 ml/min/1.73sq.m Phosphorus Collection Time: 03/14/24 6:22 AM Result Value Ref Range Phosphorus 2.5 2.4 - 4.9 mg/dL Magnesium Collection Time: 03/14/24 6:22 AM Result Value Ref Range Magnesium 1.7 (L) 1.8 - 2.6 mg/dL CBC auto differential Collection Time: 03/14/24 6:22 AM Result Value Ref Range White Blood Cells 6.3 4.0 - 11.0 X10E9/L RBC count 2.74 (L) 4.10 - 5.70 X10E12/L Hemoglobin 9.1 (L) 13.0 - 17.0 g/dL Hematocrit 27.2 (L) 39 - 49 % MCV 99 80 - 100 fL MCH 33.3 27 - 34 pg MCHC 33.5 32 - 36 g/dL RDW 19.8 (H) 11.5 - 15.0 % Platelets 82 (L) 150 - 450 X10E9/L MPV 11.0 7 - 12 fL % neutrophils 61.3 % % lymphocytes 24.0 % % monocytes 11.7 % % eosinophils 2.3 % % Basophils 0.7 % Neutrophils Absolute (A) 3.9 1.5 - 6.6 X10E9/L Lymphocytes Absolute 1.5 1.0 - 3.5 X10E9/L Monocytes Absolute 0.7 0 - 0.9 X10E9/L Eosinophils Absolute 0.1 0.0 - 0.4 X10E9/L Basophils Absolute 0.0 0.0 - 0.2 X10E9/L Bedside Glucose *Place/Obtain serum glucose if >500(>600 MRH) per glucometer. Collection Time: 03/14/24 7:50 AM Result Value Ref Range Bedside glucose 94 65 - 99 mg/dL Vitamin B12 Collection Time: 03/14/24 9:18 AM Result Value Ref Range Vitamin B-12 420 180 - 914 pg/mL Folate Collection Time: 03/14/24 9:18 AM Result Value Ref Range Folate 17.1 >5.8 ng/mL Iron and TIBC Collection Time: 03/14/24 9:18 AM Result Value Ref Range Iron 94 50 - 212 ug/dL Tibc-calc only do not order 213 (L) 250 - 425 ug/dL Iron Saturation 44 20 - 50 % SATURATION Bedside Glucose *Place/Obtain serum glucose if >500(>600 MRH) per glucometer. Collection Time: 03/14/24 12:45 PM Result Value Ref Range Bedside glucose 118 (H) 65 - 99 mg/dL Microbiology Results Procedure Component Value Units Date/Time Mrsa Pcr nasal swab [[id number]] Collected: 03/08/24 1345 Specimen: Nasal Updated: 03/08/24 1554 Mrsa PCR Negative Urine culture [[id number]] Collected: 03/08/24 0600 Specimen: Urine, Clean Catch Midstream Updated: 03/09/24 0803 Culture 50-100,000 ORGANISMS/ML NORMAL UROGENITAL CLARY Blood culture [[id number]] Collected: 03/08/24 0318 Specimen: Blood Updated: 03/13/24 1044 Culture NO GROWTH 5 DAYS Blood culture [[id number]] Collected: 03/08/24 0307 Specimen: Blood Updated: 03/13/24 1044 Culture NO GROWTH 5 DAYS No results found. All available laboratory, imaging, and microbiology data has been personally reviewed in detail, and accessible in full per EMR. Medications: atorvastatin, 20 mg, oral, Nightly cefepime (MAXIPIME) IV, 2,000 mg, intravenous, Q8H cyanocobalamin, 500 mcg, oral, Daily furosemide, 20 mg, oral, BID AC insulin lispro, 2-10 Units, subcutaneous, Q4H melatonin, 3 mg, oral, Nightly midodrine, 5 mg, oral, TID Infusion: sodium chloride 0.9 %, 20 mL/hr PRN medications: acetaminophen calcium gluconate OR calcium gluconate OR calcium gluconate dextrose dextrose 50 % in water (D50W) glucagon (human recombinant) ipratropium-albuteroL magnesium sulfate OR magnesium sulfate ondansetron (PF) oxyCODONE-acetaminophen potassium chloride OR potassium chloride potassium chloride in water OR potassium chloride in water sennosides-docusate sodium sodium phosphate IV OR sodium phosphate IV - central line OR sod phos di, mono-K phos mono sodium chloride 0.9 % ASSESSMENT and plan: Active Hospital Problems Diagnosis Date Noted Date Diagnosed Gross hematuria 03/13/2024 Staghorn calculus 03/13/2024 Acute renal failure (ARF) ([facility]) 03/08/2024 Resolved Problems No resolved problems to display. - Septic shock-resolved - Left-sided staghorn nephrolithiasis with partial obstruction - Phimosis and panurethral stricture-s/p dilation - s/p cystoscopy and left ureteral stent 03/09/2024 Urine and blood cultures are showing no growth during this admission. - appreciate ID input. Continue IV cefepime 2 g b.i.d.. - Acute blood loss anemia in the setting of Gross hematuria S/p 1 unit PRBC 03/10/2024 Monitor H&H CRITSINE due to ATN Resolved Hypotension Continue midodrine 5 mg p.o. t.i.d. CAD s/p CABG and KARL to distal Left main-ostial LXC 06/2023 in the setting of NSTEMI Severe symptomatic aortic valve stenosis with recurrent syncope s/p 23 mm Carpenter Jose Cruz 3 TAVR No acute chest pain. Continue to hold aspirin and ticagrelor in the setting of gross hematuria. Will need to resume as soon as cleared by Urology. Simvastatin 40 mg p.o. q.h.s. Diabetes mellitus type 2 Metformin pioglitazone on hold Blood glucose is well-controlled Thrombocytopenia Likely due to infection versus due to antibiotics Monitor History of T12 compression fracture Back pain is worsening Will ask Neurosurgery to evaluate the patient for kyphoplasty. DVT prophylaxis: SCDs. No pharmacological prophylaxis due to gross hematuria. Code Status: Full code. Disposition: To be determined later. Current care plan discussed in detail with the patient. He verbalized understanding. Further management will follow based on the clinical course of the patient and results of ongoing evaluation Electronically signed by: DREW GUZMAN MD 03/14/2024 Preferred contact method: #1. Epic chat #2. [facility] team pager Available from 7 am to 7 pm For after hours, please page [facility] night team. Disclaimer Note: To increase efficiency, your provider may have prepared this document using voice recognition technology. In that case, if a word or phrase is confusing, or does not make sense, thisis likely due to a recognition error within the program which was not discovered during the provider s review. If you believe an error has occurred, please notify your provider s office at your earliest convenience, so we can correct any mistakes. * Viki Luciano RN - 03/14/2024 1:00 PM EST Images from the original note were not included. FOLLOW-UP: Post-Intensive Care Rounding Note Patient: Brian Mandel : 1950 Age: 73 y.o. Length of Stay: 6 days Admission Diagnosis: Acute renal failure (ARF) (CMS-HCC) [N17.9] Reviewing patient due to his recent transfer out from Intensive Care. Recorded vital signs are stable and the patient is not noted to be in any apparent distress. Telemetry and monitoring noted. Staff may call with any issues or concerns regarding his clinical presentation or stability. Thank you, VIKI LUCIANO RN Rapid Response: [facility] * Elena Medina PharmD - 03/14/2024 12:37 PM EST [facility] Department of Pharmacy Pharmacist to Physician Communication The dose of cefepime for UTI/sepsis has been changed to 2 grams every 8 hours per the [facility] approved renal dosing guidelines, based on an estimated creatinine clearance is 60.2 mL/min (by C-G formula based on SCr of 0.75 mg/dL). Thank you, Elena Medina PharmD * Earl Grullon RN - 03/13/2024 11:23 PM EST Images from the original note were not included. FOLLOW-UP: Post-Intensive Care Rounding Note Patient: Brian Mandel : 1950 Age: 73 y.o. Length of Stay: 5 days Admission Diagnosis: Acute renal failure (ARF) ([facility]) [N17.9] Reviewing patient due to his recent transfer out from Intensive Care. Recorded vital signs are stable and the patient is not noted to be in any apparent distress. Telemetry and monitoring noted. Staff may call with any issues or concerns regarding his clinical presentation or stability. Thank you, Earl Grullon RN Rapid Response: [facility] * Ricci Harrison MD - 03/13/2024 5:34 PM EST Images from the original note were not included. Division of Infectious Diseases - Progress Note Team 1 Please contact us via [employer] chat. After hours, call [phone] Patient name: Brian Mandel Patient Today's Date and Time: 03/13/2024, 5:34 PM Admission Date: 03/08/2024 Impression : Left-sided staghorn nephrolithiasis with partial obstruction. Status post cystoscopy and left ureteral stent placement on 03/09/2024. Urine and blood cultures reveal no growth to date. Previously in July 2023, the patient had blood cultures that revealed methicillin-resistant Staphylococcus aureus. Patient has history of Dorothea in urine culture and Pseudomonas aeruginosa Acute kidney injury. Resolved Sepsis with septic shock. Resolved. Off pressors Phimosis and panurethral stricture. Status post cystoscopy and dilatation on 03/09/2024. Hypotension. Improved and no longer requiring vasopressors. Recommendations: Continue with Cefepime 2 g q 12 h. He has received 5 days of therapy. Subjective Interval History: Alert. Afebrile. No leukocytosis. He complained of low back pain and hematuria. Patient denied nausea, vomiting, chills, chest pain, abdominal and back pain, urinary symptoms, and extremity edema. Objective Physical Examination : BP 132/71 Pulse 67 Temp 36.4 C (97.6 F) (Oral) Resp 18 Ht 152.4 cm (5') Wt 88 kg (194 lb 0.1 oz) SpO2 100% BMI 37.89 kg/m Temperature Range: Temp: 36.4 C (97.6 F) Temp Av.7 C (98.1 F) Min: 36.4 C (97.6 F) Max: 36.8 C(98.3 F) General Appearance: Awake, alert, and in no apparent distress, nontoxic Eyes: Sclera anicteric; conjunctivae pink ENT: Oropharynx clear, without erythema, exudate, no thrush. Dentition Neck: Supple, without lymphadenopathy. Pulmonary/Chest: Clear to auscultation, without wheezes, rales, no rhonchi Cardiovascular: Regular rate and rhythm without murmurs Abdomen: soft, non-tender, nondistended, no palpable masses no organomegaly; normal bowel sounds Extremities: No cyanosis, edema, no joint effusions. Neurologic: Alert and oriented x 3, strength and sensation grossly normal Skin: Warm and dry Laboratory data: I have independently reviewed the following labs: Results from last 7 days Lab Units 03/13/24 0400 03/12/24 0200 03/12/24 0001 03/11/24 0330 WBC X10E9/L 5.6 5.9 5.9 5.6 HEMOGLOBIN g/dL 7.5* 7.9* 7.5* 7.7* HEMATOCRIT % 22.0* 23.2* 22.4* 22.7* MCV fL 98 99 99 99 PLATELETS X10E9/L 93* 98* 95* 101* NEUTROS ABS X10E9/L 3.5 3.7 -- 3.7 LYMPHS ABS AUTO X10E9/L 1.4 1.4 -- 1.2 MONOS ABS AUTO X10E9/L 0.6 0.6 -- 0.6 EOS ABS AUTO X10E9/L 0.1 0.1 -- 0.1 BASOS ABS AUTO X10E9/L 0.0 0.0 -- 0.0 Results from last 7 days Lab Units 03/13/24 0400 03/12/24 0200 03/11/24 0330 03/10/24 0215 03/09/24 0345 03/08/24 2235 03/08/24 1332 SODIUM mmol/L 139 141 141 140 140 -- 139 POTASSIUM mmol/L 4.4 4.4 4.1 4.1 3.9 < > 3.6 CHLORIDE mmol/L 108 110* 110* 108 107 -- 104 CO2 mmol/L 26 25 25 24 21* -- 20* BUN mg/dL 11 14 21 36* 53* -- 67* CREATININE mg/dL 0.82 0.86 1.15 1.95* 3.89* -- 5.53* CALCIUM mg/dL 8.3* 8.3* 7.8* 8.4* 8.3* -- 7.8* ALK PHOS U/L -- -- -- 120 126 -- 136* ALT U/L -- -- -- 9 9 -- 11 AST U/L -- -- -- 14 14 -- 14 < > = values in this interval not displayed. Results from last 7 days Lab Units 03/08/24 1332 PROCALCITONIN ng/mL 0.26* Results from last 7 days Lab Units 03/08/24 0828 03/08/24 0600 COLOR -- YELLOW TURBIDITY -- CLOUDY* SPECIFIC GRAVITY -- 1.025 SPECIFIC GRAVITY ENMANUEL 1.025 -- NITRITE -- Negative PH URINE -- 5.5 LEUKOCYTE ESTERASE -- SMALL* LEUKOCYTE ESTERASE ENMANUEL Small* -- PROTEIN mg/dL -- 30* KETONES (URINE) mg/dL -- Negative UROBILINOGEN eu/dL -- 0.2 UROBILINOGEN ENMANUEL eu/dL 0.2 -- BLDHGB -- SMALL* RBC UA /hpf -- 0 WBC UA /hpf -- 35* Imaging Studies: No results found. I have personally reviewed the above studies . Cultures: Microbiology Results Procedure Component Value Units Date/Time Mrsa Pcr nasal swab [[id number]] Collected: 03/08/24 1345 Specimen: Nasal Updated: 03/08/24 1554 Mrsa PCR Negative Urine culture [[id number]] Collected: 03/08/24 0600 Specimen: Urine, Clean Catch Midstream Updated: 03/09/24 0803 Culture 50-100,000 ORGANISMS/ML NORMAL UROGENITAL CLARY Blood culture [[id number]] Collected: 03/08/24 0318 Specimen: Blood Updated: 03/13/24 1044 Culture NO GROWTH 5 DAYS Blood culture [[id number]] Collected: 03/08/24 0307 Specimen: Blood Updated: 03/13/24 1044 Culture NO GROWTH 5 DAYS Medications: cefepime (MAXIPIME) IV, 2,000 mg, intravenous, Q12H insulin lispro, 2-10 Units, subcutaneous, Q4H melatonin, 3 mg, oral, Nightly midodrine, 5 mg, oral, TID This progress note was completed using a voice taffy puller system. Every effort was made to ensure accuracy; however, inadvertent computerized taffy puller errors may be present. Thank you for allowing us to participate in the care of this patient. - Ricci Harrison MD 03/13/24 5:34 PM [facility] Infectious Diseases Please contact us via [employer] chat Cosigned by Jack Nelson MD at 03/13/2024 6:02 PM EST Associated attestation - Jack Nelson MD - 03/13/2024 6:02 PM EST I performed a history and physical examination of the patient Brian Mandel, I independently reviewed the laboratory work and imaging as well as other studies mentioned in the above note; I have seen the patient along with and discussed the management with the Infectious Diseases fellow, Ricci Harrison MD I have reviewed the above note, I agree with the findings and plan of care with the following additions and corrections: This is a patient with chronic back pain type 2 diabetes and COPD as well as obesity BMI of 30 and coronary disease presented on March 08 with syncope and hypotension and was found to have perinephric stranding and left partial obstruction by staghorn calculi. Underwent left ureteral stent placement which resulted obstruction but led to hematuria. The patient is on antiplatelet medications. He is quite frustrated that he still has blood in the urine The last time this patient was treated for Pseudomonas UTI was a year ago. In the past year he did have several urine cultures with Proteus (susceptibilities were not run) and Dorothea. He has a history of MRSA bacteremia in July of last year, treated with 4 weeks of vancomycin. This time the blood cultures are negative and the urine culture grew urogenital clary 50-100k Hard to believe that the staghorn calculi are sterile. I would treat this patient presuming Proteus as the pathogen. Cefepime is appropriate Our consultation addresses :complex antimicrobial therapy counseling and treatment Thank you for allowing us to participate in the care of this patient. - JACK NELSON MD 03/13/24 5:50 PM [facility] Infectious Diseases Message me via [employer] secure chat * Drew Guzman MD - 03/13/2024 5:29 PM EST Images from the original note were not included. [facility] Hospitalists Progress Note 03/13/2024 Patient Name: Brian Mandel : 1950 Hospital Day: 6 SUBJECTIVE Follow-up for gross hematuria. The patient seen and examined. No acute events over night. The patient continues to have gross hematuria with small amount of clotting. The patient is very frustrated because the hematuria is not resolving. Denies any chest pain or shortness for breath. No fevers or chills. No family at the bedside. Past Medical History: Diagnosis Date Acute coronary syndrome [place] Anxiety disorder Chronic back pain Chronic obstructive asthma with exacerbation [place] COPD (chronic obstructive pulmonary disease) [place]) Diabetes mellitus type 2, controlled ([facility] Essential hypertension Folate deficiency anemia Heart failure ([facility]) Hypotension 11/22/2023 Megaloblastic anemia VT (myocardial infarction) ([facility]) 06/2023 Muscle weakness (generalized) Myocardial infarct ([facility] Obesity Obstructive sleep apnea SARAH (obstructive sleep apnea) Pancytopenia ([facility] Presence of coronary artery bypass graft stent Shock ([facility]) 10/05/2023 Supplemental oxygen dependent Past Surgical History: Procedure Laterality Date CARDIAC SURGERY X2 CYSTOSCOPY INSERTION STENT URETER LT Left 03/09/2024 Performed by Henna Beasley MD at [facility] Transcutaneous aortic valve replacement/Transfemoral/Carpenter N/A 11/25/2023 Performed by Henrietta Arias MD at [facility] CARDIAC CATH LABS OBJECTIVE Vital Signs: Temp: [36.4 C (97.6 F)-36.8 C (98.3 F)] 36.4 C (97.6 F) Pulse: [62-84] 67 Resp: [9-25] 18 BP: (98-138)/(56-75) 132/71 Arterial Line BP: (107-151)/(44-64) 124/50 SpO2: [95 %-100 %] 100 % O2 Device: Nasal cannula O2 Flow Rate (L/min): [3 L/min] 3 L/min Weight: Body mass index is 37.89 kg/m . Admission weight: 83.4 kg (183 lb 13.8 oz) Wt Readings from Last 3 Encounters: 03/13/24 88 kg (194 lb 0.1 oz) 03/08/24 71.2 kg (157 lb) 01/20/24 85.3 kg (188 lb 1.6 oz) Input/Output: Intake/Output Summary (Last 24 hours) at 03/13/2024 1729 Last data filed at 03/13/2024 1400 Gross per 24 hour Intake -- Output 1275 ml Net -1275 ml Physical Exam: General appearance: Alert, cooperative, no distress. Eyes: PERRLA, EOM's intact Conjunctiva/corneas moist and clear, no pallor or icterus. ENT: Oropharynx clear with moist mucous membranes and no mucosal ulcerations. No thrush. External ears and nose are normal without lesions or scars. Respiratory: Normal work of breathing. No use of accessory muscles. No wheezing, rhonchi or crackles. Cardiovascular: Regular rate and rhythm, S1, S2 normal, no murmur, rub or gallop. No LE edema. Abdomen: Soft, non-tender, no masses. No hernia. No hepatosplenomegaly. Skin: No rashes, lesions or ulcers. No induration or subcutaneous nodules. Psychiatric: Mood and affect appropriate, Appropriate judgment and insight. Alert and oriented. Labs/Imaging: Recent Results (from the past 24 hours) Bedside Glucose *Place/Obtain serum glucose if >500(>600 MRH) per glucometer. Collection Time: 03/12/24 8:05 PM Result Value Ref Range Bedside glucose 130 (H) 65 - 99 mg/dL Bedside Glucose *Place/Obtain serum glucose if >500(>600 MRH) per glucometer. Collection Time: 03/12/24 11:05 PM Result Value Ref Range Bedside glucose 105 (H) 65 - 99 mg/dL Basic Metabolic Panel Collection Time: 03/13/24 4:00 AM Result Value Ref Range Sodium 139 134 - 146 mmol/L Potassium, Bld 4.4 3.5 - 5.0 mmol/L Chloride 108 98 - 109 mmol/L CO2 26 22 - 32 mmol/L Anion gap 5 5 - 15 mmol/L BUN 11 5 - 27 mg/dL Creatinine 0.82 0.60 - 1.30 mg/dL Glucose 92 65 - 99 mg/dL Calcium 8.3 (L) 8.5 - 10.5 mg/dL eGFR (CKD-EPI)non-race dependent >90 >59 ml/min/1.73sq.m Phosphorus Collection Time: 03/13/24 4:00 AM Result Value Ref Range Phosphorus 2.4 2.4 - 4.9 mg/dL Magnesium Collection Time: 03/13/24 4:00 AM Result Value Ref Range Magnesium 1.7 (L) 1.8 - 2.6 mg/dL CBC auto differential Collection Time: 03/13/24 4:00 AM Result Value Ref Range White Blood Cells 5.6 4.0 - 11.0 X10E9/L RBC count 2.25 (L) 4.10 - 5.70 X10E12/L Hemoglobin 7.5 (L) 13.0 - 17.0 g/dL Hematocrit 22.0 (L) 39 - 49 % MCV 98 80 - 100 fL MCH 33.3 27 - 34 pg MCHC 34.0 32 - 36 g/dL RDW 19.5 (H) 11.5 - 15.0 % Platelets 93 (L) 150 - 450 X10E9/L MPV 9.6 7 - 12 fL % neutrophils 61.9 % % lymphocytes 24.5 % % monocytes 10.7 % % eosinophils 2.2 % % Basophils 0.7 % Neutrophils Absolute (A) 3.5 1.5 - 6.6 X10E9/L Lymphocytes Absolute 1.4 1.0 - 3.5 X10E9/L Monocytes Absolute 0.6 0 - 0.9 X10E9/L Eosinophils Absolute 0.1 0.0 - 0.4 X10E9/L Basophils Absolute 0.0 0.0 - 0.2 X10E9/L Bedside Glucose *Place/Obtain serum glucose if >500(>600 MRH) per glucometer. Collection Time: 03/13/24 11:46 AM Result Value Ref Range Bedside glucose 123 (H) 65 - 99 mg/dL Bedside Glucose *Place/Obtain serum glucose if >500(>600 MRH) per glucometer. Collection Time: 03/13/24 5:13 PM Result Value Ref Range Bedside glucose 114 (H) 65 - 99 mg/dL Microbiology Results Procedure Component Value Units Date/Time Mrsa Pcr nasal swab [[id number]] Collected: 03/08/24 1345 Specimen: Nasal Updated: 03/08/24 1554 Mrsa PCR Negative Urine culture [[id number]] Collected: 03/08/24 0600 Specimen: Urine, Clean Catch Midstream Updated: 03/09/24 0803 Culture 50-100,000 ORGANISMS/ML NORMAL UROGENITAL CLARY Blood culture [[id number]] Collected: 03/08/24 0318 Specimen: Blood Updated: 03/13/24 1044 Culture NO GROWTH 5 DAYS Blood culture [[id number]] Collected: 03/08/24 0307 Specimen: Blood Updated: 03/13/24 1044 Culture NO GROWTH 5 DAYS No results found. All available laboratory, imaging, and microbiology data has been personally reviewed in detail, and accessible in full per EMR. Medications: cefepime (MAXIPIME) IV, 2,000 mg, intravenous, Q12H heparin (porcine), 5,000 Units, subcutaneous, Q8H LYNN insulin lispro, 2-10 Units, subcutaneous, Q4H melatonin, 3 mg, oral, Nightly midodrine, 5 mg, oral, TID Infusion: sodium chloride 0.9 %, 20 mL/hr PRN medications: acetaminophen calcium gluconate OR calcium gluconate OR calcium gluconate dextrose dextrose 50 % in water (D50W) glucagon (human recombinant) ipratropium-albuteroL magnesium sulfate OR magnesium sulfate ondansetron (PF) oxyCODONE-acetaminophen potassium chloride OR potassium chloride potassium chloride in water OR potassium chloride in water sennosides-docusate sodium sodium phosphate IV OR sodium phosphate IV - central line OR sod phos di, mono-K phos mono sodium chloride 0.9 % ASSESSMENT and plan: Active Hospital Problems Diagnosis Date Noted Date Diagnosed Gross hematuria 03/13/2024 Staghorn calculus 03/13/2024 Acute renal failure (ARF) ([facility] 03/08/2024 Resolved Problems No resolved problems to display. - Septic shock-resolved - Left-sided staghorn nephrolithiasis with partial obstruction - Phimosis and panurethral stricture-s/p dilation - s/p cystoscopy and left ureteral stent 03/09/2024 Urine and blood cultures are showing no growth during this admission. - appreciate ID input. Continue IV cefepime 2 g b.i.d.. - Acute blood loss anemia in the setting of Gross hematuria S/p 1 unit PRBC 03/10/2024 Monitor H&H Check iron studies, B12 and folic acid levels. - Will discuss with Urology. CRISTINE due to ATN Resolved Hypotension Continue midodrine 5 mg p.o. t.i.d. CAD s/p CABG and KARL to distal Left main-ostial LXC 06/2023 in the setting of NSTEMI Severe symptomatic aortic valve stenosis with recurrent syncope s/p 23 mm Carpenter Jose Cruz 3 TAVR No acute chest pain. Continue to hold aspirin and ticagrelor in the setting of gross hematuria. Will need to resume as soon as cleared by Urology. Simvastatin 40 mg p.o. q.h.s. Diabetes mellitus type 2 Metformin pioglitazone on hold Blood glucose is well-controlled Thrombocytopenia Likely due to infection versus due to antibiotics Monitor DVT prophylaxis: SCDs. No pharmacological prophylaxis due to gross hematuria. Code Status: Full code. Disposition: To be determined later. Current care plan discussed in detail with the patient. He verbalized understanding. Further management will follow based on the clinical course of the patient and results of ongoing evaluation Electronically signed by: DREW GUZMAN MD 03/13/2024 Preferred contact method: #1. Epic chat #2. [facility] team pager Available from 7 am to 7 pm For after hours, please page [facility] night team. Disclaimer Note: To increase efficiency, your provider may have prepared this document using voice recognition technology. In that case, if a word or phrase is confusing, or does not make sense, thisis likely due to a recognition error within the program which was not discovered during the provider s review. If you believe an error has occurred, please notify your provider s office at your earliest convenience, so we can correct any mistakes. * Angle Licea RPH - 03/12/2024 1:06 PM EST [facility] Department of Pharmacy Pharmacist to Physician Communication The dose of cefepime for UTI has been changed to 2 grams every 12 hours per the [facility] approved renal dosing guidelines, based on an estimated creatinine clearance is 52.5 mL/min (by C-G formula based on SCr of 0.86 mg/dL). Thank you, Angle Licea RPH * NIVIA Yuen - 03/12/2024 12:08 PM EST NUTRITION ADULT FOLLOW UP NUTRITION ASSESSMENT: Patient History: Brief Clinical Summary: 73 y/o male admitted for nausea, vomiting, weakness, diarrhea x 1 week. PMHx recurrent UTI, falls, and syncope. Patient has a significant history for essential hypertension, Diabetes type 2, chronic back pain scheduled for surgery 02/2024, CAD, obstructive sleep apnea, COPD on home oxygen, TAVR, nonobstructing renal calculi. Biochemical Data, Medical Tests, and Procedures: 03/09- Cystoscopy insertion stent ureter lt Labs: Results from last 3 days Lab Units 03/12/24 0200 03/11/24 03303/10/24 021 SODIUM mmol/L 141 141 140 POTASSIUM mmol/L 4.4 4.1 4.1 CHLORIDE mmol/L 110* 110* 108 CO2 mmol/L BUN mg/dL 14 21 36* CREATININE mg/dL 0.86 1.15 1.95* CALCIUM mg/dL 8.3* 7.8* 8.4* ALBUMIN g/dL -- -- 2.8* ALK PHOS U/L -- -- 120 ALT U/L -- -- 9 AST U/L -- -- 14 Results from last 7 days Lab Units 03/12/24 0847 03/12/24 0310 03/12/24 0200 03/11/24 2357 03/11/24 20503/11/24 17003/11/24 1312 BEDSIDE GLUCOSE mg/dL 95 86 -- 92 107* 122* 92 GLUCOSE mg/dL -- -- 91 -- -- -- -- Results from last 3 days Lab Units 03/12/24 0200 03/12/24676703/11/24 033 WBC X10E9/L 5.9 5.9 5.6 HEMOGLOBIN g/dL 7.9* 7.5* 7.7* HEMATOCRIT % 23.2* 22.4* 22.7* PLATELETS X10E9/L 98* 95* 101* MCV fL 99 99 99 Results from last 3 days Lab Units 03/12/24 0845 03/12/24 0200 03/11/24 1700 03/11/24 0330 03/10/24 1247 03/10/24 0215 MAGNESIUM mg/dL -- 1.8 -- 1.9 -- 1.6* IONIZED MAGNESIUM mmol/L 0.71 -- 0.56 -- 0.82* -- Results from last 3 days Lab Units 03/12/24 0845 03/12/24 0315 03/12/24199 03/11/24 1315 03/11/24 0700 PHOSPHORUS mg/dL 3.1 -- 2.3* 2.8 -- CALCIUM, IONIZED mg/dL -- 4.6 -- -- 4.7 Results from last 3 days Lab Units 03/10/24 0215 TOTAL BILIRUBIN mg/dL 0.3 Lab Results Component Value Date HGBA1C 5.5 09/21/2023 Lab Results Component Value Date IRON 122 01/16/2024 TIBC 227 (L) 01/16/2024 FERRITIN 359 (H) 01/16/2024 Lab Results Component Value Date IRONSAT 54 (H) 01/16/2024 Lab Results Component Value Date CHOL 136 (L) 10/05/2023 Lab Results Component Value Date CHDL 3.3 10/05/2023 Lab Results Component Value Date HDL 41 10/05/2023 Lab Results Component Value Date LDLCALC 78 10/05/2023 Lab Results Component Value Date TRIG 83 10/05/2023 Lab Results Component Value Date VERYLOWLIP 17 10/05/2023 Lab Results Component Value Date [id number] 364 01/16/2024 Lab Results Component Value Date FOLATE >25.0 01/16/2024 No results found for: VITD25 Comments (labs): WNL Medications/ Parenteral: Cefepime, Magnesium Sulfate, Proamatine, K-Phos Neutral Current Facility-Administered Medications Medication Dose Route Frequency Provider Last Rate Last Admin acetaminophen (TYLENOL) tablet 325 mg 325 mg oral Q6H PRN APRIL Moody 325 mg at 03/11/24 2100 calcium gluconate IVPB 1000 mg/50 mL (20 mg/mL premix) 1,000 mg intravenous PRN APRIL Moody Stopped at 03/09/24 0105 Or calcium gluconate IVPB 2000 mg/100 mL (20 mg/mL premix) 2,000 mg intravenous PRN APRIL Moody Or calcium gluconate 3,000 mg in sodium chloride 0.9 % 100 mL IVPB 3,000 mg intravenous PRN APRIL Abraham cefEPime (MAXIPIME) IVPB 1000 mg/50 mL in dextrose 5% duplex (20 mg/mL premix) 1,000 mg [id number] Pavan Beltre MD Stopped at 03/12/24 0928 dextrose (GLUTOSE) 40 % gel 15 g 15 g oral PRN APRIL Moody dextrose 50 % in water (D50W) 50% solution 25 mL 25 mL intravenous PRN APRIL Moody glucagon HCL injection 1 mg 1 mg intramuscular PRN APRIL Moody heparin (porcine) injection 5,000 Units 5,000 Units subcutaneous Q8H LYNN APRIL Nye5,000 Units at 03/12/24 0528 insulin lispro (HumaLOG) injection 2-10 Units 2-10 Units subcutaneous Q4H APRIL Correa ipratropium-albuteroL (DUONEB) 0.5 mg-3 mg(2.5 mg base)/3 mL nebulizer solution 3 mL 3 mL nebulization Q6H PRN APRIL Moody magnesium sulfate IVPB 2000 mg/50 mL in iso-osmotic water (40 mg/mL premix) 2,000 mg intravenous PRN APRIL Moody Stopped at 03/12/24 0512 Or magnesium sulfate IVPB 4000 mg/100 mL in iso-osmotic water (40 mg/mL premix) 4,000 mg intravenous PRN APRIL Moody Stopped at 03/10/24 0750 melatonin (CIRCADIN) tablet 3 mg 3 mg oral Nightly APRIL Nye 3 mg at 03/11/24 2100 midodrine (PROAMATINE) tablet 5 mg 5 mg oral TID APRIL Moody 5 mg at 03/12/24 0528 ondansetron (PF) (ZOFRAN) injection 4 mg 4 mg intravenous Q6H PRN APRIL Moody oxyCODONE-acetaminophen (PERCOCET) 5-325 mg per tablet 1 tablet 1 tablet oral Q6H PRN Lou Medrano MD 1 tablet at 03/11/24 2222 potassium chloride (K-TAB,KLOR-CON) CR tablet 20-50 mEq 20-50 mEq oral PRN Ginger Walsh APRN-SHERIDAN 20 mEq at 03/09/24 0004 Or potassium chloride (KAYCIEL) 20 mEq/15 mL solution 20-50 mEq 20-50 mEq oral PRN APRIL Moody potassium chloride IVPB 10 mEq/50 mL in water (0.2 mEq/mL premix) 10 mEq intravenous PRN APRIL Abraham Or potassium chloride IVPB 10 mEq/100 mL in water (0.1 mEq/mL premix) 10 mEq intravenous PRN APRIL Moody sennosides-docusate sodium (SENOKOT-S) 8.6-50 mg 2 tablet 2 tablet oral BID PRN APRIL Carias sodium phosphate 20 mmol in sodium chloride 0.9 % 250 mL IVPB 20 mmol intravenous PRN APRIL Moody Or sodium phosphate 20 mmol in sodium chloride 0.9 % 100 mL IVPB 20 mmol intravenous PRN APRIL Moody Or sod phos di, mono-K phos mono (K-PHOS NEUTRAL) 250 mg tablet 2 tablet 2 tablet oral PRN Ginger Walsh APRN-SHERIDAN 2 tablet at 03/12/24 0528 sodium chloride 0.9 % infusion 3 mL/hr intra-arterial Continuous Pavan Beltre MD 3 mL/hr at 03/12/24 0628 3 mL/hr at 03/12/24 0628 Nutrition Focused Physical Findings Skin (per nursing flow sheets): Skin Color: Pale; Pigmented (03/12/24 0745) Skin Temp: Warm; Dry (03/12/24 0745) Wound (per nursing flow sheets): Wound 03/08/24 1 Skin Tear Calf Left-Site Assessment: Other (Comment) (Dressing CDI) (03/12/24 0745) Gastrointestinal (per nursing flow sheets): Abdomen Assessment: Soft; Rounded (03/11/24 0745) Last BM Date: 03/11/24 (03/12/24 0745) RUQ Bowel Sounds: Active (03/11/24 0745) LUQ Bowel Sounds: Active (03/11/24744) RLQ Bowel Sounds: Active (03/11/24744) LLQ Bowel Sounds: Active (03/11/24744) GI Symptoms: None (03/11/24744) Edema (per nursing flow sheets): Generalized Edema: +1 (03/12/24744) RLE Edema: +1 (03/12/24744) LLE Edema: +1 (03/12/24744) Intake/ Output Last 24 hrs: Intake/Output Summary (Last 24 hours) at 03/12/2024 1208 Last data filed at 03/12/2024 0800 Gross per 24 hour Intake 170.71 ml Output 1225 ml Net -1054.29 ml Food/Nutrition Related History: Diet/ Nutrition Order Review: Dietary Orders (From admission, onward) Start Ordered 03/10/24 1018 Adult diet Regular Texture; Consistent Carb 210 grams (1800 kcal); No Added Salt (3-4gm Sodium) Diet effective now Question Answer Comment Diet Type: Regular Texture Carbohydrate Modifiers: Consistent Carb 210 grams (1800 kcal) Sodium Modifiers: No Added Salt (3-4 gm Sodium) 03/10/24 1017 Diet Intakes: Eats lunch/dinner, does not eat breakfast (not even at home)- fair/good po Oral Supplemental Intake/ Acceptance: none ordered Nutrition Knowledge/Beliefs/Attitudes: No education needs at this time Anthropometrics: Last 3 Weight Readings 03/10/24 0500 03/11/24 0500 03/12/24 0500 Weight: 84.5 kg (186 lb 4.6 oz) 88 kg (194 lb 0.1 oz) 89 kg (196 lb 3.4 oz) Current Weight: 89 kg (unknown, 03/12) Admit Weight: 83.4 kg (Bed Scale, 03/08) Beccaria Body Weight: 48.2 kg Weight Changes: weight up this admit Current Body Mass Index: Body mass index is 38.32 kg/m . Comparative Standards: Estimated Energy Needs: 6994-4244 kcals daily. Method and weight used: 25-32 kcal/kg IBW Estimated Protein Needs: 58-96 grams daily. Method and weight used: 1.2-2 g protein/kg IBW Estimated Fluid Needs: 0058-1416 ml daily. Method weight used: 1 ml/kcal Comments: Floor needs based on BMI Malnutrition Status: Malnutrition Present: No NUTRITION DIAGNOSIS: Intake Diagnosis: Predicted suboptimal energy intake (NI 1.4) Resolved NUTRITION INTERVENTIONS: Encourage good po intake at meals Consider Ensure Plus HP on trays if po intake is <50% Coordination of care: secure chat with RN on 03/12 RECOMMENDATIONS: Appreciate %meal intake documented in RN Flowsheets to allow for ongoing nutrition assessments. GOAL(S): Meet estimated calorie and protein needs NUTRITION MONITORING AND EVALUATION: PO intakes, labs, I/Os, weights, skin integrity, plan of care Marc Larson MS, RDN, LD, [facility] Clinical Dietitian III Direct Line * Shirley Blake MD - 03/12/2024 10:18 AM EST Internal Medicine Progress note Assessment and plan Septic shock with urinary source Left-sided staghorn calculus/partial obstruction Gross hematuria status post cystoscopy and ureteral stent placement 03/09/2024 The patient was started on IV cefepime by the ICU team Infectious disease consulted, Urology on board Still has significant hematuria with borderline hemoglobin Phimosis and proctor urethral stricture status post cystoscopy and dilatation 03/09/2024 Acute blood loss anemia in the setting of hematuria Monitor CBC daily Received a unit of blood on 03/10 Transfuse for hemoglobin less than 7 Acute kidney injury attributed to acute tubular necrosis versus prerenal fluctuations in the setting of sepsis and shock Thrombocytopenia Platelets have been downtrending since admission, Likely suppressed by acute infection, Continue to monitor CBC daily, Transfuse per protocol Syncopal event In the setting of sepsis, Metabolic acidosis in the setting of recent diarrhea and acute kidney injury has been corrected with alkaline IV infusion Dispo: PT/OT consulted. Subjective: Summary of patient's presentation and hospital course: Dr. Blake assumed care of the patient, For information regarding previous days of hospitalization please refer to hospital course from previous physicians. The patient was seen and examined today, no active issues overnight. The patient was transferred out of the ICU yesterday, Vital signs reviewed and stable, currently on 3 L of oxygen saturating high 90s, Morning labs reviewed, significant for hemoglobin of 7.9, platelets continue to downtrend, down to 98 today Significant improvement in her creatinine down to normal range today Consult Infectious Disease for recommendations on antibiotics management Active in-patient medications: Scheduled Meds: cefepime (MAXIPIME) IV, 1,000 mg, intravenous, Q12H heparin (porcine), 5,000 Units, subcutaneous, Q8H LYNN insulin lispro, 2-10 Units, subcutaneous, Q4H melatonin, 3 mg, oral, Nightly midodrine, 5 mg, oral, TID Continuous Infusions: sodium chloride 0.9 %, 3 mL/hr, Last Rate: 3 mL/hr (03/12/24 0628) PRN Meds:. acetaminophen calcium gluconate OR calcium gluconate OR calcium gluconate dextrose dextrose 50 % in water (D50W) glucagon (human recombinant) ipratropium-albuteroL magnesium sulfate OR magnesium sulfate ondansetron (PF) oxyCODONE-acetaminophen potassium chloride OR potassium chloride potassium chloride in water OR potassium chloride in water sennosides-docusate sodium sodium phosphate IV OR sodium phosphate IV - central line OR sod phos di, mono-K phos mono Vitals and Physical exam: Vitals: SpO2 Readings from Last 1 Encounters: 03/12/24 98% Constitutional: No acute distress. Head: Normocephalic and atraumatic. Eyes: EOM are normal. PERRL Neck: Neck supple. Cardiovascular: Normal heart sounds. No murmurs. Pulmonary/Chest: Not in respiratory distress, effort and breath sounds normal, no wheezes. Abdominal: Soft, normoactive bowel sounds, without distension, tenderness or rebound Lymphadenopathy:No adenopathy. Extremities: No peripheral edema. Review of Other Clinical Data: Today, I reviewed laboratory test results in this patient's current encounter. I have reviewed all Radiology reports up to this point in the patients current encounter and have incorporated these into the assessment/plan and care of this patient. Shirley Blake M.D. Internal Medicine 03/12/2024 10:19 AM This note was dictated using voice recognition software and may contain errors in taffy puller. Please contact me for any questions or uncertainty in the information provided. * APRIL Carias - 03/11/2024 10:26 AM EST Day two handoff report called to [facility]. They have agreed to assume role of primary team upon transferfrom the ICU. SHERIDAN Carias APRN-CNP 03/11/24 1026 * Ale Bowser MD - 03/11/2024 10:06 AM EST Images from the original note were not included. NEPHROLOGY SIGN OFF NOTE Assessment 1. Acute kidney injury attributed to acute tubular necrosis versus prerenal fluctuations in the setting of sepsis and shock Renal function has recovered with creatinine level down to 1.15 mg/dL today. 2. Left-sided staghorn calculus/partial obstruction status post cystoscopy and ureteral stent placement 03/09/2024 3. Phimosis and proctor urethral stricture status post cystoscopy and dilatation 03/09/2024 4. Hypotension/shock: Rule out underlying infection/sepsis. Blood cultures are negative Stops ProAmatine once BP is better 5. Syncopal event possibly from orthostatic hypotension, continue maintenance IV fluids 6. Metabolic acidosis in the setting of recent diarrhea and acute kidney injury has been corrected with alkaline IV infusion 7. Volume status: Continue maintenance IV fluids Plan 1. Discontinue IV fluids 2. Nephrology service will sign off the case today. Subjective/Interval history No events Problem List Acute kidney injury likely related to Acute Tubular Necrosis secondary to septic shock. Creatinine baseline 1.1 mg/dL. Renal ultrasound December 2023 shows right kidney 9 cm, left kidney 10.2 cm withno hydronephrosis. From September of 2023 serum protein electrophoresis revealed monoclonal protein of0.3 grams/deciliter, serum immunofixation was negative monoclonal bands, LUIGI and anti-GBM were negative, C3 was 136 and C4 was 35, free kappa to lambda ratio was 1.6. Urinalysis from February 2024 showed 100 mg/dL of protein, no RBCs specific gravity 1.025. Left-sided staghorn calculus/partial obstruction status post cystoscopy and ureteral stent placement 03/09/2024 Phimosis and proctor urethral stricture status post cystoscopy and dilatation 03/09/2024 Hypotension/shock Diabetes mellitus type 2 Hypertension Severe aortic stenosis status post TAVR 11/25/2023 CAD status post CABG x2 with unknown vessels involved in the past. Also has had PTCA/stent in July 2023, no report available. This was done at [facility] in [place]. COPD on home oxygen Obesity Obstructive sleep apnea Hyperlipidemia History of methicillin-resistant Staphylococcus aureus bacteremia in July of 2023 resulting in hospitalization. A source was never identified. He completed a 28 day course of vancomycin as an outpatient to treat the bacteremia of unknown source. Recent Proteus mirabilis urinary tract infection August 2020 History of megaloblastic anemia with folate deficiency 2D echo November 2023 shows EF 55-60%. Prior THIERRY from October 2023 showed preserved EF and normal right ventricular systolic function. Physical Exam Admission Weight: Weight: 83.4 kg (183 lb 13.8 oz) I/O last 3 completed shifts: In: 2342.8 [I.V.:1868.2; Blood:237.5; IV Piggyback:237.2] Out: 2490 [Urine:2490] Weight change: 3.5 kg (7 lb 11.5 oz) Wt Readings from Last 3 Encounters: 03/11/24 88 kg (194 lb 0.1 oz) 03/08/24 71.2 kg (157 lb) 01/20/24 85.3 kg (188 lb 1.6 oz) Vitals: Vitals: 03/11/24 0700 03/11/24 0745 03/11/24 0800 03/11/24 0900 BP: Pulse: 65 71 72 Resp: 20 18 22 19 Temp: 36.7 C (98.1 F) TempSrc: Oral SpO2: 100% 100% 99% Weight: Height: General: Alert, oriented x 3 and in no obvious distress Psychiatric: Has a normal mood and affect. HEENT: Head normocephalic. Eyes: Conjunctivae and EOM are normal. Pupils are equal, round and reactive to light. Cardiovascular: Normal rate, regular rhythm and normal heart sounds. No JVD. Pulmonary/Chest: Air entry bilaterally equal. No wheezes or rales. Abdominal: Soft, bowel sounds are normal and there was no tenderness rebound or guarding. Musculoskeletal: Normal range of motion. No tenderness. Neurological: No obvious deficits. Skin: No rash noted. Extremities: No edema Meds: Current Meds: cefepime (MAXIPIME) IV, 1,000 mg, intravenous, Q12H heparin (porcine), 5,000 Units, subcutaneous, Q8H LYNN insulin lispro, 2-10 Units, subcutaneous, Q4H melatonin, 3 mg, oral, Nightly midodrine, 5 mg, oral, TID Continuous Infusions: lactated ringer's, 75 mL/hr, Last Rate: 75 mL/hr (03/11/24656) sodium chloride 0.9 %, 3 mL/hr, Last Rate: 3 mL/hr (03/11/24656) sodium chloride 0.9 %, 20 mL/hr Laboratory Studies Results from last 7 days Lab Units 03/11/24 03303/10/2421403/09/24344 SODIUM mmol/L 141 140 140 POTASSIUM mmol/L 4.1 4.1 3.9 CHLORIDE mmol/L 110* 108 107 CO2 mmol/L 25 24 21* BUN mg/dL 21 36* 53* CREATININE mg/dL 1.15 1.95* 3.89* CALCIUM mg/dL 7.8* 8.4* 8.3* PHOSPHORUS mg/dL 2.1* 2.9 3.9 MAGNESIUM mg/dL 1.9 1.6* 2.1 Results from last 7 days Lab Units 03/11/24 0330 03/10/24 2315 03/10/24 1710 03/10/2421403/09/24201903/09/24 034 WBC X10E9/L 5.6 -- -- 7.2 -- 7.3 HEMOGLOBIN g/dL 7.7* 8.0* 6.9* 7.3* < > 7.3* HEMATOCRIT % 22.7* 23.6* 20.1* 21.6* < > 21.0* PLATELETS X10E9/L 101* -- -- 137* -- 147* < > = values in this interval not displayed. Results from last 7 days Lab Units 03/11/24 0330 03/10/2421403/09/24 034 MAGNESIUM mg/dL 1.9 1.6* 2.1 Lab Results Component Value Date CALCIUM 7.8 (L) 03/11/2024 Lab Results Component Value Date IRON 122 01/16/2024 TIBC 227 (L) 01/16/2024 FERRITIN 359 (H) 01/16/2024 Please contact me at [phone] (Office) or [phone] (Answering service) with any questions. Please feel free to contact me through [employer] Secure chat during the daytime hours, if no response after 5 minutes then call the answering service. Ale Bowser MD [facility] This note was created with the assistance of a speech-recognition program. Although the intention is to generate a document that actually reflects the content of the visit, no guarantees can be provided that every mistake has been identified and corrected by editing. * APRIL Carias - 03/11/2024 7:02 AM EST Images from the original note were not included. CRITICAL CARE PROGRESS NOTE Name: Brian Mandel Age: 73 y.o. Date: 03/11/24 Length of Stay 3 day(s) Assessment: Acute kidney injury 2/2 ATN, improved Septic shock requiring vasopressor support, improved, off pressors Recent Pseudomonas UTI Acute hypoxemic respiratory insufficiency requiring supplemental oxygen Chronic, non-obstructive bilateral renal calculi Hx of COPD on home oxygen Hx of severe aortic stenosis s/p TAVR in 11/2023 Hx of multivessel CAD s/p CABG x 2 Plan: Supplemental O2 via NC Monitor strict I/O Continue midodrine Monitor blood glucose levels per protocol, on SS coverage Continue Cefepime DVT prophylaxis - SQ Heparin Nutrition - tolerating regular diet Electrolyte replacement per ICU sliding scale protocol Encourage mobility OK to transfer out of the ICU CECI Carias Acute Care Nurse Practitioner [facility] Subjective: No acute overnight events. Transfer out of ICU pending bed availability Hospital Problem: Principal Problem: Acute renal failure (ARF) (CMS-HCC) OBJECTIVE: General Appearance: Comfortable, well-appearing, in no acute distress and not in pain Lungs: effort normal rate normal breath sounds normal Heart: rate normal regular rhythm S1 normal S2 normal Chest: symmetric chest wall expansion Abdomen: soft no distension no ascites no tenderness Extremities: ROM normal Neuro: alert and oriented PERRL Physical Exam: Constitutional: Well-developed, well-nourished, no acute distress Head: Normocephalic and atraumatic Heart: S1, S2, RRR, no gallops, rubs, or murmurs. Distal pulses are palpable Lungs: Clear throughout all lobes, diminished in the bases, resps easy and non-labored Neuro: ROB, CERVANTES, awake and appropriately following commands GI: Abd softly distended and rounded with active BS : Urine is yellow and clear Extremities: Minimal peripheral edema noted Vital Signs Temp: [36.3 C (97.4 F)-36.9 C (98.4 F)] 36.8 C (98.2 F) Pulse: [57-110] 62 Resp: [16-27] 19 Arterial Line BP: (95-147)/(37-63) 99/41 SpO2: [91 %-100 %] 100 % O2 Device: Nasal cannula O2 Flow Rate (L/min): [2 L/min-3 L/min] 3 L/min O2 Device: Nasal cannula I/O last 3 completed shifts: In: 2342.8 [I.V.:1868.2; Blood:237.5; IV Piggyback:237.2] Out: 2490 [Urine:2490] Results from last 3 days Lab Units 03/11/24 03303/10/2421403/09/2434403/08/24 22303/08/24 1332 BUN mg/dL 21 36* 53* -- 67* CREATININE mg/dL 1.15 1.95* 3.89* -- 5.53* POTASSIUM mmol/L 4.1 4.1 3.9 3.7 3.6 CO2 mmol/L 25 24 21* -- 20* CHLORIDE mmol/L 110* 108 107 -- 104 MAGNESIUM mg/dL 1.9 1.6* 2.1 -- 1.7* AST U/L -- 14 14 -- 14 ALT U/L -- 9 9 -- 11 ALK PHOS U/L -- 120 126 -- 136* No data from last 3 days. Results from last 3 days Lab Units 03/11/24 0330 03/10/24 2315 03/10/24 1710 03/10/2421403/09/24201903/09/2434425 1332 WBC X10E9/L 5.6 -- -- 7.2 -- 7.3 9.5 HEMOGLOBIN g/dL 7.7* 8.0* 6.9* 7.3* 7.2* 7.3* 7.9* HEMATOCRIT % 22.7* 23.6* 20.1* 21.6* 21.3* 21.0* 23.1* PLATELETS X10E9/L 101* -- -- 137* -- 147* 188 MCV fL 99 -- -- 101* -- 99 99 MCH pg 33.4 -- -- 34.2* -- 34.0 33.9 MCHC g/dL 33.7 -- -- 33.9 -- 34.5 34.2 RDW % 20.4* -- -- 19.7* -- 19.5* 19.5* EOS ABS AUTO X10E9/L 0.1 -- -- 0.2 -- 0.2 0.1 Microbiology Results Procedure Component Value Units Date/Time Mrsa Pcr nasal swab [[id number]] Collected: 03/08/24 1345 Specimen: Nasal Updated: 03/08/24 1554 Mrsa PCR Negative Urine culture [[id number]] Collected: 03/08/24 0600 Specimen: Urine, Clean Catch Midstream Updated: 03/09/24 0803 Culture 50-100,000 ORGANISMS/ML NORMAL UROGENITAL CLARY Blood culture [[id number]] Collected: 03/08/24 0318 Specimen: Blood Updated: 03/10/24 1048 Culture NO GROWTH 2 DAYS Blood culture [[id number]] Collected: 03/08/24 0307 Specimen: Blood Updated: 03/10/24 1048 Culture NO GROWTH 2 DAYS Results from last 7 days Lab Units 03/11/24 0330 03/10/24 2310 03/10/24 1937 03/10/24 1708 03/10/24 1251 03/10/24 0835 03/10/24 0215 03/09/24 2227 03/09/24 1628 03/09/24 1221 03/09/24 0822 03/09/24 0348 BEDSIDE GLUCOSE mg/dL -- 101* 118* 134* 96 108* -- 95 93 92 103* 128* GLUCOSE mg/dL 114* -- -- -- -- -- 117* -- -- -- -- -- Microbiology Results Procedure Component Value Units Date/Time Mrsa Pcr nasal swab [[id number]] Collected: 03/08/24 1345 Specimen: Nasal Updated: 03/08/24 1554 Mrsa PCR Negative Urine culture [[id number]] Collected: 03/08/24 0600 Specimen: Urine, Clean Catch Midstream Updated: 03/09/24 0803 Culture 50-100,000 ORGANISMS/ML NORMAL UROGENITAL CLARY Blood culture [[id number]] Collected: 03/08/24 0318 Specimen: Blood Updated: 03/10/24 1048 Culture NO GROWTH 2 DAYS Blood culture [[id number]] Collected: 03/08/24 0307 Specimen: Blood Updated: 03/10/24 1048 Culture NO GROWTH 2 DAYS Lines/Drains Peripheral IV 03/08/24 Left Antecubital (Active) Line Status Saline locked;Alcohol sponge cap maintained 03/11/24 0400 Site Assessment Clean;Dry;Intact 03/11/24 0400 Dressing Type Occlusive;Transparent 03/11/24 0400 Dressing Status Clean;Dry;Intact 03/11/24 0400 Dressing Intervention Dressing changed 03/10/24 2200 Dressing Change Due (Non-Gauze) 03/15/24 03/08/24 1055 Peripheral IV 03/08/24 Right Antecubital (Active) Line Status Saline locked;Alcohol sponge cap maintained 03/11/24 0400 Site Assessment Clean;Dry;Intact 03/11/24 0400 Dressing Type Occlusive;Transparent 03/11/24 0400 Dressing Status Clean;Dry;Intact 03/11/24 0400 Dressing Intervention Initial dressing 03/11/24 0000 Peripheral IV 03/08/24 Anterior;Left Forearm (Active) Line Status Infusing;Connections checked/tightened;Alcohol sponge cap maintained 03/11/24 0400 Site Assessment Clean;Dry;Intact 03/11/24 0400 Dressing Type Occlusive;Transparent 03/11/24 0400 Dressing Status Clean;Dry;Intact 03/11/24 0400 Dressing Intervention Initial dressing 03/11/24 0000 Dressing Change Due (Non-Gauze) 03/15/24 03/08/24 2344 Urinary Catheter 03/09/24 Double-lumen (Active) Catheter Status Patent 03/11/24399 Site Assessment Clean;Skin intact 03/11/24399 Collection Container Standard drainage bag/container 03/11/24399 Securement Method Securing device (Describe) 03/11/24399 Tamper Evident Seal Intact Yes 03/11/24399 Reason for Continuing Physician order 03/11/24399 Urine Color Bloody;Brown 03/11/24399 Urine Appearance Clear 03/11/24399 Output (mL) 75 mL 03/11/24 06 Arterial Line 03/08/24 Right Radial (Active) Line Status Pulsatile blood flow;Blood return noted 03/11/24399 Line Interventions Zeroed and calibrated;Leveled;Connections checked and tightened 03/11/24399 Waveform Appropriate 03/11/24399 Site Assessment Clean;Dry;Intact 03/11/24399 Dressing Type Transparent 03/11/24399 Dressing Status Clean;Dry;Intact 03/11/24399 Dressing Intervention Initial dressing 03/11/24399 Color/Movement/Sensation Capillary refill less than 3 sec 03/11/24 040 Patient Tolerance of Line Care Tolerated well 03/11/24399 Line Necessity Invasive hemodynamic monitoring 03/11/24399 Line Necessity Reviewed With cc 03/11/24399 Dressing Change Due (Non-Gauze) 03/18/24 03/11/24 0000 I/O last 3 completed shifts: In: 2342.8 [I.V.:1868.2; Blood:237.5; IV Piggyback:237.2] Out: 2490 [Urine:2490] No intake/output data recorded. cefepime (MAXIPIME) IV, 1,000 mg, intravenous, Q12H heparin (porcine), 5,000 Units, subcutaneous, Q8H LYNN insulin lispro, 2-10 Units, subcutaneous, Q4H melatonin, 3 mg, oral, Nightly midodrine, 5 mg, oral, TID lactated ringer's, 75 mL/hr, Last Rate: 75 mL/hr (03/11/24656) sodium chloride 0.9 %, 3 mL/hr, Last Rate: 3 mL/hr (03/11/24656) sodium chloride 0.9 %, 20 mL/hr APRIL Carias 03/11/24 0857 Cosigned by Pavan Beltre MD at 03/11/2024 1:44 PM EST * APRIL Carias - 03/10/2024 11:45 AM EST Clinical handoff report called to Dr Pérez of [facility]. They have agreed to assume the role of primary care team upon transfer from the ICU. SHERIDAN Carias APRN-CNP 03/10/24 1145 * Ale Bowser MD - 03/10/2024 10:42 AM EST Images from the original note were not included. NEPHROLOGY PROGRESS NOTE Assessment 1. Acute kidney injury attributed to acute tubular necrosis versus prerenal fluctuations in the setting of sepsis and shock Renal function improving nicely with creatinine level down to 1.95 mg/dL today. No indication for dialysis 2. Left-sided staghorn calculus/partial obstruction status post cystoscopy and ureteral stent placement 03/09/2024 3. Phimosis and proctor urethral stricture status post cystoscopy and dilatation 03/09/2024 4. Hypotension/shock: Rule out underlying infection/sepsis. Blood cultures are negative 5. Syncopal event possibly from orthostatic hypotension, continue maintenance IV fluids 6. Metabolic acidosis in the setting of recent diarrhea and acute kidney injury has been corrected with alkaline IV infusion 7. Volume status: Continue maintenance IV fluids Plan 1. Continue maintenance IV fluids Subjective/Interval history Had cystoscopy, urethral dilatation to address strictures and placement of left ureteral stent for staghorn calculus yesterday Problem List Acute kidney injury likely related to Acute Tubular Necrosis secondary to septic shock. Creatinine baseline 1.1 mg/dL. Renal ultrasound December 2023 shows right kidney 9 cm, left kidney 10.2 cm withno hydronephrosis. From September of 2023 serum protein electrophoresis revealed monoclonal protein of0.3 grams/deciliter, serum immunofixation was negative monoclonal bands, LUIGI and anti-GBM were negative, C3 was 136 and C4 was 35, free kappa to lambda ratio was 1.6. Urinalysis from February 2024 showed 100 mg/dL of protein, no RBCs specific gravity 1.025. Left-sided staghorn calculus/partial obstruction status post cystoscopy and ureteral stent placement 03/09/2024 Phimosis and proctor urethral stricture status post cystoscopy and dilatation 03/09/2024 Hypotension/shock Diabetes mellitus type 2 Hypertension Severe aortic stenosis status post TAVR 11/25/2023 CAD status post CABG x2 with unknown vessels involved in the past. Also has had PTCA/stent in July 2023, no report available. This was done at [facility] in [place]. COPD on home oxygen Obesity Obstructive sleep apnea Hyperlipidemia History of methicillin-resistant Staphylococcus aureus bacteremia in July of 2023 resulting in hospitalization. A source was never identified. He completed a 28 day course of vancomycin as an outpatient to treat the bacteremia of unknown source. Recent Proteus mirabilis urinary tract infection August 2020 History of megaloblastic anemia with folate deficiency 2D echo November 2023 shows EF 55-60%. Prior THIERRY from October 2023 showed preserved EF and normal right ventricular systolic function. Physical Exam Admission Weight: Weight: 83.4 kg (183 lb 13.8 oz) I/O last 3 completed shifts: In: 3203.2 [P.O.:420; I.V.:2652.7; IV Piggyback:130.4] Out: 2240 [Urine:2240] Weight change: 1.1 kg (2 lb 6.8 oz) Wt Readings from Last 3 Encounters: 03/10/24 84.5 kg (186 lb 4.6 oz) 03/08/24 71.2 kg (157 lb) 01/20/24 85.3 kg (188 lb 1.6 oz) Vitals: Vitals: 03/10/24 0700 03/10/24 0730 03/10/24 0800 03/10/24 0900 BP: Pulse: 59 57 69 69 Resp: 20 18 23 Temp: 36.6 C (97.8 F) TempSrc: Oral SpO2: 99% 99% 100% 97% Weight: Height: General: Alert, oriented x 3 and in no obvious distress Psychiatric: Has a normal mood and affect. HEENT: Head normocephalic. Eyes: Conjunctivae and EOM are normal. Pupils are equal, round and reactive to light. Cardiovascular: Normal rate, regular rhythm and normal heart sounds. No JVD. Pulmonary/Chest: Air entry bilaterally equal. No wheezes or rales. Abdominal: Soft, bowel sounds are normal and there was no tenderness rebound or guarding. Musculoskeletal: Normal range of motion. No tenderness. Neurological: No obvious deficits. Skin: No rash noted. Extremities: No edema Meds: Current Meds: cefepime (MAXIPIME) IV, 1,000 mg, intravenous, Q12H heparin (porcine), 5,000 Units, subcutaneous, Q8H LYNN insulin lispro, 2-10 Units, subcutaneous, Q4H melatonin, 3 mg, oral, Nightly midodrine, 5 mg, oral, TID Continuous Infusions: lactated ringer's, 75 mL/hr, Last Rate: 75 mL/hr (03/10/24 0840) norepinephrine, 0.01-0.4 mcg/kg/min, Last Rate: Stopped (03/09/24 1620) sodium chloride 0.9 %, 3 mL/hr, Last Rate: 3 mL/hr (03/10/24 0006) Laboratory Studies Results from last 7 days Lab Units 03/10/24 02103/09/2434403/08/24223403/08/24 1332 SODIUM mmol/L 140 140 -- 139 POTASSIUM mmol/L 4.1 3.9 3.7 3.6 CHLORIDE mmol/L 108 107 -- 104 CO2 mmol/L 24 21* -- 20* BUN mg/dL 36* 53* -- 67* CREATININE mg/dL 1.95* 3.89* -- 5.53* CALCIUM mg/dL 8.4* 8.3* -- 7.8* PHOSPHORUS mg/dL 2.9 3.9 -- 4.8 MAGNESIUM mg/dL 1.6* 2.1 -- 1.7* Results from last 7 days Lab Units 03/10/2421403/09/24201903/09/2434403/08/24 1332 WBC X10E9/L 7.2 -- 7.3 9.5 HEMOGLOBIN g/dL 7.3* 7.2* 7.3* 7.9* HEMATOCRIT % 21.6* 21.3* 21.0* 23.1* PLATELETS X10E9/L 137* -- 147* 188 Results from last 7 days Lab Units 03/10/24 0215 03/09/24 0345 03/08/24 1332 MAGNESIUM mg/dL 1.6* 2.1 1.7* Lab Results Component Value Date CALCIUM 8.4 (L) 03/10/2024 Lab Results Component Value Date IRON 122 01/16/2024 TIBC 227 (L) 01/16/2024 FERRITIN 359 (H) 01/16/2024 Please contact me at [phone] (Office) or [phone] (Answering service) with any questions. Please feel free to contact me through [employer] Secure chat during the daytime hours, if no response after 5 minutes then call the answering service. Ale Bowser MD [facility] This note was created with the assistance of a speech-recognition program. Although the intention is to generate a document that actually reflects the content of the visit, no guarantees can be provided that every mistake has been identified and corrected by editing. * Amy Perez MD - 03/10/2024 8:46 AM EST Images from the original note were not included. Jr. Paris Gregor, M.D., Kye Sylvester M.D., Harjinder Burden M.D., Iva Tucker M.D., Henna Beasley M.D., Noe Sheppard M.D., Skyler Lake M.D., Shin Montana M.D, Burt Butler M.D. Hospital day: 2 Chief Complaint: Left staghorn calculus Subjective: Patient is status post cystoscopy with insertion of stent in the left ureter on 03/09/24. Patient resting comfortably in bed. Currently not on pressors. No acute events reported overnight. Patient hasa catheter in place with bloody urine output. Vital signs are within the normal range with blood pressure of 122/48, map of 72, heart rate of 70. No nausea or vomiting or abdominal pain. Today's labsshow a WBC of 7.2, hemoglobin of 7.3 stable compared to 7.2 on 03/09/24. Creatinine of 1.95. Weight: 84.5 kg (186 lb 4.6 oz) Patient Vitals for the past 24 hrs: Temp Temp src Pulse Resp SpO2 Weight 03/10/24 0730 36.6 C (97.8 F) Oral -- -- -- -- 03/10/24 0700 -- -- 59 20 99 % -- 03/10/24 0600 -- -- 66 22 100 % -- 03/10/24 0500 -- -- 64 18 99 % 84.5 kg (186 lb 4.6 oz) 03/10/24 0449 -- -- 60 17 100 % -- 03/10/24 0431 -- -- 62 19 100 % -- 03/10/24 0400 -- -- 60 19 100 % -- 03/10/24 0300 36.7 C (98.1 F) -- 66 15 99 % -- 03/10/24 0200 -- -- 67 22 100 % -- 03/10/24 0100 -- -- 71 19 98 % -- 03/10/24 0011 -- -- 79 19 95 % -- 03/10/24 0000 -- -- 82 22 99 % -- 03/09/24 2300 -- -- 70 19 100 % -- 03/09/24 2200 -- -- 69 23 100 % -- 03/09/24 2100 -- -- 88 16 98 % -- 03/09/24 2030 -- -- 86 (!) 36 97 % -- 03/09/241999 36.7 C (98.1 F) -- -- -- -- -- 03/09/24 1900 36.7 C (98.1 F) -- 71 24 98 % -- 03/09/24 1800 -- -- 66 17 100 % -- 03/09/24 1700 -- -- 66 22 99 % -- 03/09/24 1620 -- -- 55 17 100 % -- 03/09/24 1600 36.5 C (97.7 F) Oral 60 16 100 % -- 03/09/24 1500 -- -- 60 21 100 % -- 03/09/24 1406 -- -- 74 (!) 29 100 % -- 03/09/24 1400 -- -- 79 22 95 % -- 03/09/24 1348 -- -- 61 20 100 % -- 03/09/24 1345 -- -- 65 16 100 % -- 03/09/24 1340 -- -- 59 17 99 % -- 03/09/24 1300 -- -- 59 19 99 % -- 03/09/24 1215 36.4 C (97.5 F) Oral 56 16 99 % -- 03/09/24 1200 -- -- 54 18 100 % -- 03/09/24 1100 -- -- 77 18 99 % -- 03/09/24 1025 -- -- 71 14 (!) 83 % -- 03/09/24 1000 -- -- 55 17 93 % -- 03/09/24 0900 -- -- 56 19 94 % -- Intake/Output Summary (Last 24 hours) at 03/10/2024 0846 Last data filed at 03/10/2024 0838 Gross per 24 hour Intake 1349.55 ml Output 1120 ml Net 229.55 ml Results from last 7 days Lab Units 03/10/24 0835 03/10/24 0215 03/09/24 0348 03/09/24 0345 03/08/24 2238 03/08/24 2235 03/08/24 1758 03/08/24 1332 POTASSIUM mmol/L -- 4.1 -- 3.9 -- 3.7 -- 3.6 CHLORIDE mmol/L -- 108 -- 107 -- -- -- 104 CO2 mmol/L -- 24 -- 21* -- -- -- 20* BUN mg/dL -- 36* -- 53* -- -- -- 67* CREATININE mg/dL -- 1.95* -- 3.89* -- -- -- 5.53* BEDSIDE GLUCOSE mg/dL 108* -- < > -- < > -- < > -- GLUCOSE mg/dL -- 117* -- 119* -- -- -- 168* CALCIUM mg/dL -- 8.4* -- 8.3* -- -- -- 7.8* < > = values in this interval not displayed. Results from last 7 days Lab Units 03/10/24 0215 03/09/24201903/09/24 0345 03/08/24 1332 WBC X10E9/L 7.2 -- 7.3 9.5 HEMOGLOBIN g/dL 7.3* 7.2* 7.3* 7.9* HEMATOCRIT % 21.6* 21.3* 21.0* 23.1* PLATELETS X10E9/L 137* -- 147* 188 Lab Results Component Value Date SPECIFICGRA 1.025 03/08/2024 LEUKOCYTE Small (A) 03/08/2024 NITRITEN Negative 03/08/2024 PHNUR 5.5 03/08/2024 PROTEINNUR 100 (A) 03/08/2024 GLU 108 (H) 03/10/2024 KETONESNUR Negative 03/08/2024 UROBILINOGEN 0.2 03/08/2024 BLOODHGBNU Small (A) 03/08/2024 Additional Lab/culture results: Microbiology Results Procedure Component Value Units Date/Time Mrsa Pcr nasal swab [[id number]] Collected: 03/08/24 1345 Specimen: Nasal Updated: 03/08/24 1554 Mrsa PCR Negative Urine culture [[id number]] Collected: 03/08/24 0600 Specimen: Urine, Clean Catch Midstream Updated: 03/09/24 0803 Culture 50-100,000 ORGANISMS/ML NORMAL UROGENITAL CLARY Blood culture [[id number]] Collected: 03/08/24 0318 Specimen: Blood Updated: 03/09/24 1048 Culture NO GROWTH 1 DAY Blood culture [[id number]] Collected: 03/08/24 0307 Specimen: Blood Updated: 03/09/24 1048 Culture NO GROWTH 1 DAY Physical Exam: Constitutional: NAD HEENT: NCAT, PERRLA, EOMI Card: RRR, extremities warm well perfused Pulm: no SOB, no increased WOB Abdominal: no tenderness, distension, pain. exam: no suprapubic tenderness MSK: no overt deformities Neuro: no focal deficits Interval Imaging Findings: X-ray chest 1 view Result Date: 03/09/2024 Narrative: CLINICAL INFORMATION: Shortness of breath, difficulty breathing. TECHNIQUE: Chest radiograph, single AP view. COMPARISON: 03/08/2024. FINDINGS Sternotomy. Cardiomediastinal silhouette is unchanged. No pneumothorax. Prominent epicardial fat pad, similar to prior exams. Trace left pleural ef fusion and basilar atelectasis. IMPRESSION: * Trace left pleural effusion and basilar atelectasis. Approved by Resident Jeromy Low DO on 03/09/2024 6:35 AM IKye MD have personally reviewed the image(s) and agree with and/or edited the report Finalized by Kye Kapadia MD on 03/09/2024 6:[address] chest without contrast Result Date: 03/08/2024 Narrative: CT CHEST WITHOUT CONTRAST HISTORY: Sepsis COMPARISON: 11/22/2023 TECHNIQUE: Routine CT chest without contrast. All CT scans at this facility use dose modulation, iterative reconstruction, and/or weight based dosing when appropriate to reduce radiation dose to as low as reasonably achievable. FINDINGS: Please refer to separate report for abdominal findings. No lung nodules or masses. Trace left pleural effusion. Atelectasis in the subpleural regions of the left lower lobe. The central airways are patent. Cardiomegaly. Status post aortic valve replacement. Status post CABG. Atherosclerotic thoracic aorta. No right pleural effusion or pericardial effusion. No enlarged thoracic lymph nodes. Visualized chest wall structures are unremarkable. Muscular atrophy in the chest. Chronic severe T12 compression deformity. No acute osseous abnormalities or aggressive osseous lesions. Focal area of mild tracheal stenosis near the thoracic inlet. IMPRESSION: * Trace left pleural effusion and subpleural atelectasis in the left lower lobe. * Focal area of mild tracheal stenosis near the thoracic inlet. * Several additional incidental findings described above. Finalizedby Edilberto Willoughby MD on 03/08/2024 4:[address] abdomen and pelvis without contrast Result Date: 03/08/2024 Narrative: CLINICAL INFORMATION: Kidney failure, acute; renal failure. TECHNIQUE: CT Abdomen and Pelvis without intravenous contrast. All CT scans at this facility use dose modulation, iterative reconstruction, and/or weight based dosing when appropriate to reduce radiation dose to as low as reasonably achievable. COMPARISON: 11/22/2023 FINDINGS: Please refer to separate report for chest findings.The liver, gallbladder, spleen, and adrenal glands are unremarkable. Atrophy of the pancreas. Nonobstructing bilateral renal stones, left larger and more numerous than right. No ureteral stones or collecting system dilatation. Bladder is underdistended. Small fat-containing inguinal hernias. Normalappendix. The small and large bowel are of normal caliber with no evidence of bowel wall thickening. No free fluid in the abdomen or pelvis. No free intraperitoneal air. Previous umbilical hernia repair. Status post endograft repair of abdominal aortic aneurysm. Diffuse atherosclerotic disease. Moderate to severe T12 compression deformity, unchanged. IMPRESSION: * No acute abnormalities in the abdomen/pelvis. * Numerous incidental findings described above. Finalized by Edilberto Willoughby MD on 03/08/2024 4:41 AM X-ray chest 1 view Result Date: 03/08/2024 Narrative: History: cough Exam/Technique: Single AP view of the chest was obtained Comparison: 01/19/2024 Findings: Cardiac size is stable given portable AP technique. There is vague opacity of the left lower chest likely attributed to chest wall attenuation. Otherwise there is no gross pleural effusion or pneumothorax. IMPRESSION: Left lower lobe basal opacity likely attributed to chest wall attenuation with otherwise stable exam. Finalized by Elizabeth Pfeiffer MD on 03/08/2024 4:13 AM Echo congenital limited W/O contrast Result Date: 02/09/2024 Narrative: Left Ventricle: Normal left ventricular systolic function with a visually estimated EF of 60 - 65%. EF by 2D Simpsons Biplane is 64%. Left ventricle size is normal. Moderately increased wall thickness. Normal wall motion. Diastolic dysfunction present with normal LV EF. Aortic Valve: TAVR noted with no perivalvular leak. Mild stenosis of the aortic valve. AV mean gradient is 11 mmHg. AV area by continuity VTI is 1.7 cm2. Mitral Valve: Moderate annular calcification. Tricuspid Valve: Mild regurgitation. The estimated RVSP is 36 mmHg. No previous studies were available for comparison. Left Ventricle Normal left ventricular systolic function with a visually estimated EF of 60 - 65%.EF by 2D Simpsons Biplane is 64%. Left ventricle size is normal. Moderately increased wall thickness. Normal wall motion. Diastolic dysfunction present with normal LV EF. Right Ventricle Right ventricle size is normal. Normal systolic function. Left Atrium Left atrial volume index is normal (16-34 mL/m2). Right Atrium Right atrium size is normal. IVC/SVC IVC diameter is less than or equal to 21 mm and decreases greater than 50% during inspiration; therefore the estimated right atrial pressure is normal (~3 mmHg). IVC size is normal. Mitral Valve Moderate annular calcification. Mild regurgitation. Tricuspid Valve Valve structure is normal. Mild regurgitation. The estimated RVSP is 36 mmHg. Aortic Valve TAVR noted with no perivalvular leak. Mild stenosis of the aortic valve. AV mean gradient is 11 mmHg. AV area by continuity VTI is 1.7 cm2. Pulmonic Valve The pulmonic valve visualization is suboptimal but appears to be functioning normally. Physiologically normal regurgitation. No stenosis noted. Ascending Aorta Normal sized aortic root and ascending aorta. Pericardium No pericardial effusion. Study Details Image quality: adequate. TAVR- 23 mm Edward-Jose Cruz No contrast was given. Impression: Large left staghorn renal stone 1.5 cm, status post cystoscopy and insertion of stent in left ureter on 03/09/24 History of positive urine cultures in 2023 (Proteus 09/21/2023, candiduria 10/10/2023) Hypotension, resolved Plan: OK to have a diet from a urological standpoint Continue scheduled antibiotics Continue analgesics p.r.n. Continue trending creatinine Amy Perez MD PGY1 Urology resident 03/10/2024 Cosigned by Henna Beasley MD at 03/10/2024 2:08 PM EST Associated attestation - Henna Beasley MD - 03/10/2024 2:08 PM EST Attending Attestation: I saw the patient. I Performed the critical/benoit portions of the service. I was directly involved in the management and treatment plan of the patient. I reviewed the resident's/PA's note. Additional Notes/Findings: Agree with above. Will arrange follow up to discuss stone treatment options at our [place] [facility]. With any questions please do not use Epic chat. All communication to the Urology service at [facility] should go through the urology pager # [phone]. - Henna Beasley MD 03/10/24 2:08 PM * APRIL Carias - 03/10/2024 6:18 AM EST Images from the original note were not included. CRITICAL CARE PROGRESS NOTE Name: Brian Mandel Age: 73 y.o. Date: 03/10/24 Length of Stay 2 day(s) Assessment: Acute kidney injury 2/2 ATN, improved Septic shock requiring vasopressor support, improved, off pressors Recent Pseudomonas UTI Acute hypoxemic respiratory insufficiency requiring supplemental oxygen Chronic, non-obstructive bilateral renal calculi Hx of COPD on home oxygen Hx of severe aortic stenosis s/p TAVR in 11/2023 Hx of multivessel CAD s/p CABG x 2 Plan: Supplemental O2 via NC Monitor strict I/O Continue midodrine Monitor blood glucose levels per protocol, on SS coverage Continue Cefepime DVT prophylaxis - SQ Heparin Nutrition - tolerating regular diet Electrolyte replacement per ICU sliding scale protocol Encourage mobility OK to transfer out of the ICU CECI Carias Acute Care Nurse Practitioner [facility] Subjective: No acute overnight events. Examined while resting in bed. Stable for transfer out of the ICU Hospital Problem: Principal Problem: Acute renal failure (ARF) (CMS-HCC) OBJECTIVE: General Appearance: Comfortable, in no acute distress, well-appearing and not in pain Lungs: effort normal rate normal breath sounds normal Heart: rate normal regular rhythm S1 normal Chest: symmetric chest wall expansion Abdomen: soft no distension no ascites bowel sounds normal no tenderness Extremities: ROM normal Neuro: alert and oriented PERRL Physical Exam: Constitutional: Well-developed, well-nourished, no acute distress Head: Normocephalic and atraumatic Heart: S1, S2, RRR. Distal pulses are palpable Lungs: Clear throughout all lobes, diminished in the bases, resps easy and non-labored Neuro: ROB, CERVANTES, awake and appropriately following commands GI: Abd softly distended and rounded with active BS : Urine is yellow and clear Extremities: Minimal peripheral edema noted Vital Signs Temp: [36.4 C (97.5 F)-36.7 C (98.1 F)] 36.7 C (98.1 F) Pulse: [53-88] 64 Resp: [14-36] 18 Arterial Line BP: (86-148)/(30-64) 113/43 SpO2: [83 %-100 %] 99 % O2 Device: Nasal cannula O2 Flow Rate (L/min): [3 L/min] 3 L/min O2 Device: Nasal cannula I/O last 3 completed shifts: In: 3338.3 [P.O.:420; I.V.:2749.8; IV Piggyback:168.5] Out: 1919 [Urine:1919] Results from last 3 days Lab Units 03/10/2421403/09/2434403/08/24223403/08/24133103/08/24 0245 BUN mg/dL 36* 53* -- 67* 70* CREATININE mg/dL 1.95* 3.89* -- 5.53* 6.49* POTASSIUM mmol/L 4.1 3.9 3.7 3.6 4.0 CO2 mmol/L 24 21* -- 20* 15* CHLORIDE mmol/L 108 107 -- 104 105 MAGNESIUM mg/dL 1.6* 2.1 -- 1.7* 1.2* AST U/L 14 14 -- 14 21 ALT U/L 9 9 -- 11 18 ALK PHOS U/L 120 126 -- 136* 152* Results from last 3 days Lab Units 03/08/24 0245 INR 1.2* PROTIME sec 13.6* Results from last 3 days Lab Units 03/10/2421403/09/24201903/09/2434403/08/24133103/08/24 0245 WBC X10E9/L 7.2 -- 7.3 9.5 10.3 HEMOGLOBIN g/dL 7.3* 7.2* 7.3* 7.9* 8.6* HEMATOCRIT % 21.6* 21.3* 21.0* 23.1* 25.6* PLATELETS X10E9/L 137* -- 147* 188 192 MCV fL 101* -- 99 99 100 MCH pg 34.2* -- 34.0 33.9 33.7 MCHC g/dL 33.9 -- 34.5 34.2 33.7 RDW % 19.7* -- 19.5* 19.5* 19.5* EOS ABS AUTO X10E9/L 0.2 -- 0.2 0.1 0.1 Microbiology Results Procedure Component Value Units Date/Time Mrsa Pcr nasal swab [[id number]] Collected: 03/08/24 1345 Specimen: Nasal Updated: 03/08/24 1554 Mrsa PCR Negative Urine culture [[id number]] Collected: 03/08/24 06 Specimen: Urine, Clean Catch Midstream Updated: 03/09/24 0803 Culture 50-100,000 ORGANISMS/ML NORMAL UROGENITAL CLARY Blood culture [[id number]] Collected: 03/08/24 031 Specimen: Blood Updated: 03/09/24 1048 Culture NO GROWTH 1 DAY Blood culture [[id number]] Collected: 03/08/24 0307 Specimen: Blood Updated: 03/09/24 1048 Culture NO GROWTH 1 DAY Results from last 7 days Lab Units 03/10/24 0215 03/09/24 2227 03/09/24 1628 03/09/24 1221 03/09/24 0822 03/09/24 0348 03/09/24 0345 03/08/24 2238 03/08/24 1943 03/08/24 1758 03/08/24 1332 03/08/24 1057 BEDSIDE GLUCOSE mg/dL -- 95 93 92 103* 128* -- 125* 115* 127* -- 180* GLUCOSE mg/dL 117* -- -- -- -- -- 119* -- -- -- 168* -- Microbiology Results Procedure Component Value Units Date/Time Mrsa Pcr nasal swab [[id number]] Collected: 03/08/24 1345 Specimen: Nasal Updated: 03/08/24 1554 Mrsa PCR Negative Urine culture [[id number]] Collected: 03/08/24 06 Specimen: Urine, Clean Catch Midstream Updated: 03/09/24 0803 Culture 50-100,000 ORGANISMS/ML NORMAL UROGENITAL CLARY Blood culture [[id number]] Collected: 03/08/24 0318 Specimen: Blood Updated: 03/09/24 1048 Culture NO GROWTH 1 DAY Blood culture [[id number]] Collected: 03/08/24 0307 Specimen: Blood Updated: 03/09/24 1048 Culture NO GROWTH 1 DAY Lines/Drains Peripheral IV 03/08/24 Left Antecubital (Active) Line Status Blood return noted;Flushed 03/10/24 0400 Site Assessment Clean;Dry;Intact 03/10/24 0400 Dressing Type Occlusive;Transparent 03/10/24 0400 Dressing Status Clean;Dry;Intact 03/10/24 0400 Dressing Intervention Initial dressing 03/08/24 1055 Dressing Change Due (Non-Gauze) 03/15/24 03/08/24 1055 Peripheral IV 03/08/24 Right Antecubital (Active) Line Status Blood return noted;Flushed 03/10/24 0400 Site Assessment Clean;Intact;Dry 03/10/24 0400 Dressing Type Occlusive;Transparent 03/10/24 0400 Dressing Status Clean;Dry;Intact 03/10/24 0400 Dressing Intervention Initial dressing 03/08/24 1055 Peripheral IV 03/08/24 Anterior;Left Forearm (Active) Line Status Blood return noted;Flushed 03/10/24 0400 Site Assessment Dry;Clean;Intact 03/10/24 0400 Dressing Type Occlusive;Transparent 03/10/24 0400 Dressing Status Intact;Clean;Dry 03/10/24 0400 Dressing Intervention Initial dressing 03/08/24 2344 Dressing Change Due (Non-Gauze) 03/15/24 03/08/24 2344 Urinary Catheter 03/09/24 Double-lumen (Active) Catheter Status Patent 03/09/24 213 Site Assessment Urethral drainage 03/09/242131 Collection Container Standard drainage bag/container 03/09/242131 Securement Method Securing device (Describe) 03/09/242131 Reason for Continuing Acute obstruction 03/09/242131 Urine Color Bloody 03/09/242131 Urine Appearance Clear 03/09/242131 Output (mL) 40 mL 03/10/24 0500 Arterial Line 03/08/24 Right Radial (Active) Line Status Infusing;Pulsatile blood flow 03/10/24 0449 Line Interventions Leveled;Connections checked and tightened;Pressure bag maintained;Armboard 03/10/24 0449 Waveform Appropriate 03/10/24 0449 Site Assessment Clean;Dry;Intact 03/10/24 0400 Dressing Type Occlusive;Transparent 03/10/24 0400 Dressing Status Clean;Dry;Intact 03/10/24 0400 Color/Movement/Sensation Capillary refill greater than 3 sec 03/10/24 0400 Patient Tolerance of Line Care Tolerated well 03/09/24 1600 Line Necessity Invasive hemodynamic monitoring 03/09/24 1600 Line Necessity Reviewed With CC 03/09/24 1600 I/O last 3 completed shifts: In: 3338.3 [P.O.:420; I.V.:2749.8; IV Piggyback:168.5] Out: 1920 [Urine:1920] I/O this shift: In: 376.2 [I.V.:358.7; IV Piggyback:17.5] Out: 370 [Urine:370] cefepime (MAXIPIME) IV, 1,000 mg, intravenous, Q12H heparin (porcine), 5,000 Units, subcutaneous, Q8H LYNN insulin lispro, 2-10 Units, subcutaneous, Q4H melatonin, 3 mg, oral, Nightly midodrine, 5 mg, oral, TID lactated ringer's, 75 mL/hr, Last Rate: 75 mL/hr (03/09/24 1900) norepinephrine, 0.01-0.4 mcg/kg/min, Last Rate: Stopped (03/09/24 1620) sodium chloride 0.9 %, 3 mL/hr, Last Rate: 3 mL/hr (03/10/24 0006) APRIL Carias 03/10/24 1034 Cosigned by Pavan Beltre MD at 03/10/2024 11:23 AM EST * Dmitriy Ruiz MD - 03/09/2024 12:04 PM EST Images from the original note were not included. Jr. Wellington, Zeinab Lynne., Kye Sylvester M.D., Harjinder Burden M.D., Iva Tucker M.D., Henna Beasley M.D., Noe Sheppard M.D., Skyler Lake M.D., Shin Montana M.D, Burt Butler M.D. Hospital day: 1 Chief Complaint: Left staghorn calculus Subjective: Patient resting in bed. Levo to 0.02, continuing to titrate down. Patient states that he has been urinating without significant issue. Endorses some flank pain on the left side worse fromyesterday. Hypotension has improved. No leukocytosis on morning labs. Creatinine has improved todayto 3.89 from 5.53. Weight: 84.3 kg (185 lb 13.6 oz) Patient Vitals for the past 24 hrs: BP Temp Temp src Pulse Resp SpO2 Weight 03/09/24 1200 -- -- -- 54 18 100 % -- 03/09/24 1100 -- -- -- 77 18 99 % -- 03/09/24 1025 -- -- -- 71 14 (!) 83 % -- 03/09/24 1000 -- -- -- 55 17 93 % -- 03/09/24 0900 -- -- -- 56 19 94 % -- 03/09/24 0824 -- -- -- 55 20 99 % -- 03/09/24 0800 -- 36.5 C (97.7 F) Oral 53 18 98 % -- 03/09/24 0757 -- -- -- 57 21 97 % -- 03/09/24 0617 -- -- -- 60 20 95 % -- 03/09/24 0612 -- -- -- 61 21 97 % -- 03/09/24 0608 -- -- -- 72 20 95 % -- 03/09/24 0603 -- -- -- 74 25 99 % -- 03/09/24 0600 -- -- -- 77 23 99 % 84.3 kg (185 lb 13.6 oz) 03/09/24 0515 -- -- -- 53 19 96 % -- 03/09/24 0510 -- -- -- 57 19 94 % -- 03/09/24 0505 -- -- -- 57 18 97 % -- 03/09/24 0400 -- -- -- 72 19 100 % -- 03/09/24 0355 -- -- -- 59 20 96 % -- 03/09/249 -- -- -- 63 24 96 % -- 03/09/24 034 -- 36.4 C (97.5 F) Oral 63 18 92 % -- 03/09/24 0331 -- -- -- 55 20 95 % -- 03/09/24 0320 -- -- -- 75 (!) 28 91 % -- 03/09/24 0316 -- -- -- 57 19 92 % -- 03/09/24 0200 -- -- -- 75 24 99 % -- 03/09/24 0110 -- -- -- 75 (!) 28 100 % -- 03/09/24104 -- -- -- 55 20 99 % -- 03/09/2499 -- -- -- 55 18 100 % -- 03/09/245 -- -- -- 58 21 100 % -- 03/09/24 0020 -- -- -- 60 25 100 % -- 03/09/24 001 -- 36.4 C (97.5 F) Oral 58 22 100 % -- 03/09/2410 -- -- -- 60 25 100 % -- 03/09/246 -- -- -- 61 21 90 % -- 03/08/242219 -- -- -- 62 15 94 % -- 03/08/242214 -- -- -- 61 22 93 % -- 03/08/242210 -- -- -- 63 20 92 % -- 03/08/242209 -- -- -- 63 21 93 % -- 03/08/242205 -- -- -- 61 21 96 % -- 03/08/242204 -- -- -- 64 20 93 % -- 03/08/242201 -- -- -- 63 22 92 % -- 03/08/242156 -- -- -- 62 21 95 % -- 03/08/242151 -- -- -- 65 20 97 % -- 03/08/242140 -- -- -- 65 20 95 % -- 03/08/242135 -- -- -- 67 18 99 % -- 03/08/242043 -- -- -- 64 24 100 % -- 03/08/242038 -- -- -- 63 15 100 % -- 03/08/241943 -- 36.4 C (97.5 F) Oral 65 (!) 26 100 % -- 03/08/241942 -- -- -- 65 23 100 % -- 03/08/241937 -- -- -- 63 (!) 26 100 % -- 03/08/24 191 -- -- -- 66 25 100 % -- 03/08/24 1905 -- -- -- 65 25 96 % -- 03/08/24 1805 -- -- -- 74 20 93 % -- 03/08/24 1800 -- -- -- 66 25 100 % -- 03/08/24 1700 -- -- -- 64 21 100 % -- 03/08/24 1650 -- -- -- 65 22 100 % -- 03/08/24 1635 -- -- -- 72 23 99 % -- 03/08/24 1630 -- -- -- 76 25 98 % -- 03/08/24 1600 -- 36.5 C (97.7 F) Oral 70 24 100 % -- 03/08/24 1545 -- -- -- 71 23 97 % -- 03/08/24 1535 -- -- -- 73 (!) 27 98 % -- 03/08/24 1525 -- -- -- 69 25 100 % -- 03/08/24 1520 -- -- -- 69 (!) 27 100 % -- 03/08/24 1500 -- -- -- 69 21 100 % -- 03/08/24 1430 -- -- -- 70 21 100 % -- 03/08/24 1423 -- -- -- 75 25 100 % -- 03/08/24 1415 -- -- -- 71 20 100 % -- 03/08/24 1400 -- -- -- 68 (!) 29 100 % -- 03/08/24 1341 117/43 -- -- 72 -- -- -- 03/08/24 1300 -- -- -- 72 17 100 % -- Intake/Output Summary (Last 24 hours) at 03/09/2024 1206 Last data filed at 03/09/2024 1052 Gross per 24 hour Intake 2771.62 ml Output 1470 ml Net 1301.62 ml Results from last 7 days Lab Units 03/09/24 0822 03/09/24 0348 03/09/24 0345 03/08/24 2238 03/08/24 2235 03/08/24 1758 03/08/24 1332 03/08/24 1057 03/08/24 0245 POTASSIUM mmol/L -- -- 3.9 -- 3.7 -- 3.6 -- 4.0 CHLORIDE mmol/L -- -- 107 -- -- -- 104 -- 105 CO2 mmol/L -- -- 21* -- -- -- 20* -- 15* BUN mg/dL -- -- 53* -- -- -- 67* -- 70* CREATININE mg/dL -- -- 3.89* -- -- -- 5.53* -- 6.49* BEDSIDE GLUCOSE mg/dL 103* < > -- < > -- < > -- < > -- GLUCOSE mg/dL -- -- 119* -- -- -- 168* -- 123* CALCIUM mg/dL -- -- 8.3* -- -- -- 7.8* -- 8.7 < > = values in this interval not displayed. Results from last 7 days Lab Units 03/09/24 03403/08/24133103/08/24 0245 WBC X10E9/L 7.3 9.5 10.3 HEMOGLOBIN g/dL 7.3* 7.9* 8.6* HEMATOCRIT % 21.0* 23.1* 25.6* PLATELETS X10E9/L 147* 188 192 Lab Results Component Value Date SPECIFICGRA 1.025 03/08/2024 LEUKOCYTE Small (A) 03/08/2024 NITRITEN Negative 03/08/2024 PHNUR 5.5 03/08/2024 PROTEINNUR 100 (A) 03/08/2024 GLU 103 (H) 03/09/2024 KETONESNUR Negative 03/08/2024 UROBILINOGEN 0.2 03/08/2024 BLOODHGBNU Small (A) 03/08/2024 Additional Lab/culture results: Microbiology Results Procedure Component Value Units Date/Time Mrsa Pcr nasal swab [[id number]] Collected: 03/08/24 1345 Specimen: Nasal Updated: 03/08/24 1554 Mrsa PCR Negative Urine culture [[id number]] Collected: 03/08/24 0600 Specimen: Urine, Clean Catch Midstream Updated: 03/09/24 0803 Culture 50-100,000 ORGANISMS/ML NORMAL UROGENITAL CLARY Blood culture [[id number]] Collected: 03/08/24 0318 Specimen: Blood Updated: 03/09/24 1048 Culture NO GROWTH 1 DAY Blood culture [[id number]] Collected: 03/08/24 0307 Specimen: Blood Updated: 03/09/24 1048 Culture NO GROWTH 1 DAY Physical Exam: Constitutional: NAD HEENT: NCAT, PERRLA, EOMI Card: RRR, extremities warm well perfused Pulm: no SOB, no increased WOB Abdominal: no tenderness, distension, pain. exam: no suprapubic tenderness, left flank pain MSK: no overt deformities Neuro: no focal deficits Interval Imaging Findings: X-ray chest 1 view Result Date: 03/09/2024 Narrative: CLINICAL INFORMATION: Shortness of breath, difficulty breathing. TECHNIQUE: Chest radiograph, single AP view. COMPARISON: 03/08/2024. FINDINGS Sternotomy. Cardiomediastinal silhouette is unchanged. No pneumothorax. Prominent epicardial fat pad, similar to prior exams. Trace left pleural ef fusion and basilar atelectasis. IMPRESSION: * Trace left pleural effusion and basilar atelectasis. Approved by Resident Jeromy Low DO on 03/09/2024 6:35 AM Kye Marcial MD have personally reviewed the image(s) and agree with and/or edited the report Finalized by Kye Kapadia MD on 03/09/2024 6:[address] chest without contrast Result Date: 03/08/2024 Narrative: CT CHEST WITHOUT CONTRAST HISTORY: Sepsis COMPARISON: 11/22/2023 TECHNIQUE: Routine CT chest without contrast. All CT scans at this facility use dose modulation, iterative reconstruction, and/or weight based dosing when appropriate to reduce radiation dose to as low as reasonably achievable. FINDINGS: Please refer to separate report for abdominal findings. No lung nodules or masses. Trace left pleural effusion. Atelectasis in the subpleural regions of the left lower lobe. The central airways are patent. Cardiomegaly. Status post aortic valve replacement. Status post CABG. Atherosclerotic thoracic aorta. No right pleural effusion or pericardial effusion. No enlarged thoracic lymph nodes. Visualized chest wall structures are unremarkable. Muscular atrophy in the chest. Chronic severe T12 compression deformity. No acute osseous abnormalities or aggressive osseous lesions. Focal area of mild tracheal stenosis near the thoracic inlet. IMPRESSION: * Trace left pleural effusion and subpleural atelectasis in the left lower lobe. * Focal area of mild tracheal stenosis near the thoracic inlet. * Several additional incidental findings described above. Finalizedby Edilberto Willoughby MD on 03/08/2024 4:[address] abdomen and pelvis without contrast Result Date: 03/08/2024 Narrative: CLINICAL INFORMATION: Kidney failure, acute; renal failure. TECHNIQUE: CT Abdomen and Pelvis without intravenous contrast. All CT scans at this facility use dose modulation, iterative reconstruction, and/or weight based dosing when appropriate to reduce radiation dose to as low as reasonably achievable. COMPARISON: 11/22/2023 FINDINGS: Please refer to separate report for chest findings.The liver, gallbladder, spleen, and adrenal glands are unremarkable. Atrophy of the pancreas. Nonobstructing bilateral renal stones, left larger and more numerous than right. No ureteral stones or collecting system dilatation. Bladder is underdistended. Small fat-containing inguinal hernias. Normalappendix. The small and large bowel are of normal caliber with no evidence of bowel wall thickening. No free fluid in the abdomen or pelvis. No free intraperitoneal air. Previous umbilical hernia repair. Status post endograft repair of abdominal aortic aneurysm. Diffuse atherosclerotic disease. Moderate to severe T12 compression deformity, unchanged. IMPRESSION: * No acute abnormalities in the abdomen/pelvis. * Numerous incidental findings described above. Finalized by Edilberto Willoughby MD on 03/08/2024 4:41 AM X-ray chest 1 view Result Date: 03/08/2024 Narrative: History: cough Exam/Technique: Single AP view of the chest was obtained Comparison: 01/19/2024 Findings: Cardiac size is stable given portable AP technique. There is vague opacity of the left lower chest likely attributed to chest wall attenuation. Otherwise there is no gross pleural effusion or pneumothorax. IMPRESSION: Left lower lobe basal opacity likely attributed to chest wall attenuation with otherwise stable exam. Finalized by Elizabeth Pfeiffer MD on 03/08/2024 4:13 AM Echo congenital limited W/O contrast Result Date: 02/09/2024 Narrative: Left Ventricle: Normal left ventricular systolic function with a visually estimated EF of 60 - 65%. EF by 2D Simpsons Biplane is 64%. Left ventricle size is normal. Moderately increased wall thickness. Normal wall motion. Diastolic dysfunction present with normal LV EF. Aortic Valve: TAVR noted with no perivalvular leak. Mild stenosis of the aortic valve. AV mean gradient is 11 mmHg. AV area by continuity VTI is 1.7 cm2. Mitral Valve: Moderate annular calcification. Tricuspid Valve: Mild regurgitation. The estimated RVSP is 36 mmHg. No previous studies were available for comparison. Left Ventricle Normal left ventricular systolic function with a visually estimated EF of 60 - 65%.EF by 2D Simpsons Biplane is 64%. Left ventricle size is normal. Moderately increased wall thickness. Normal wall motion. Diastolic dysfunction present with normal LV EF. Right Ventricle Right ventricle size is normal. Normal systolic function. Left Atrium Left atrial volume index is normal (16-34 mL/m2). Right Atrium Right atrium size is normal. IVC/SVC IVC diameter is less than or equal to 21 mm and decreases greater than 50% during inspiration; therefore the estimated right atrial pressure is normal (~3 mmHg). IVC size is normal. Mitral Valve Moderate annular calcification. Mild regurgitation. Tricuspid Valve Valve structure is normal. Mild regurgitation. The estimated RVSP is 36 mmHg. Aortic Valve TAVR noted with no perivalvular leak. Mild stenosis of the aortic valve. AV mean gradient is 11 mmHg. AV area by continuity VTI is 1.7 cm2. Pulmonic Valve The pulmonic valve visualization is suboptimal but appears to be functioning normally. Physiologically normal regurgitation. No stenosis noted. Ascending Aorta Normal sized aortic root and ascending aorta. Pericardium No pericardial effusion. Study Details Image quality: adequate. TAVR- 23 mm Edward-Jose Cruz No contrast was given. Impression: Large left staghorn renal stone 1.5 cm History of positive urine cultures in 2023 (Proteus 09/21/2023, candiduria 10/10/2023) Hypotension, on pressors possible source Plan: No significant obstruction or hydronephrosis Clinically patient reports worsening flank pain today compared to yesterday Will plan for urgent stent placement today NPO for procedure Continue scheduled antibiotics Continue trending creatinine Dmitriy Ruiz MD Urology Resident, PGY-1 12:06 PM 03/09/2024 Cosigned by Henna Beasley MD at 03/09/2024 7:09 PM EST Associated attestation - Henna Beasley MD - 03/09/2024 7:09 PM EST Attending Attestation: I saw the patient. I Performed the critical/benoit portions of the service. I was directly involved in the management and treatment plan of the patient. I reviewed the resident's/PA's note. Additional Notes/Findings: Agree with above. L stent today. With any questions please do not use Epic chat. All communication to the Urology service at [facility] should go through the urology pager # [phone]. - Henna Beasley MD 03/09/24 7:09 PM * NIVIA Yuen - 03/09/2024 11:14 AM EST NUTRITION ADULT INITIAL EVALUATION NUTRITION ASSESSMENT: Reason to be seen: Database trigger for decreased po intake prior to admit Patient History: Admit Diagnosis: Patient Active Problem List Diagnosis Chest pain Macrocytic anemia Anxiety disorder Benign essential hypertension Chronic diastolic congestive heart failure ([facility]) Chronic respiratory failure with hypoxia ([facility]) COPD (chronic obstructive pulmonary disease) ([facility]) 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 Dyslipidemia Dyspnea Gastroesophageal reflux disease without esophagitis HTN (hypertension) Major depressive disorder Mixed hyperlipidemia Obstructive sleep apnea syndrome Old myocardial infarction Type 2 diabetes mellitus with hyperglycemia, without long-term current use of insulin ([facility] Weakness generalized Pleural effusion, left Community acquired pneumonia of left lower lobe of lung Bacteremia due to methicillin resistant Staphylococcus aureus Acute on chronic congestive heart failure, unspecified heart failure type ([facility] CRISTINE (acute kidney injury) ([facility] Acute coronary syndrome ([facility]) Aortic stenosis Congestive heart failure ([facility]) Difficulty walking Dizziness Erectile dysfunction Generalized muscle weakness History of myocardial infarction Morbid (severe) obesity due to excess calories ([facility] Mucopurulent chronic bronchitis ([facility]) Other chronic pain Postconcussion syndrome Psychophysiological insomnia Pure hypercholesterolemia Rotator cuff tear arthropathy of left shoulder Rotator cuff tear, non-traumatic, right Solitary pulmonary nodule Spondylosis of lumbosacral region without myelopathy or radiculopathy Tachycardia Urinary retention Leukocytes in urine Iron deficiency anemia secondary to inadequate dietary iron intake Recurrent left pleural effusion Anxiety and depression Weakness Hypomagnesemia Shock ([facility]) T12 compression fracture ([facility]) Hypotension Severe aortic stenosis Acute renal failure (ARF) ([facility] Past Medical History: Past Medical History: Diagnosis Date Acute coronary syndrome ([facility] Anxiety disorder Chronic back pain Chronic obstructive asthma with exacerbation ([facility]) COPD (chronic obstructive pulmonary disease) ([facility] Diabetes mellitus type 2, controlled ([facility]) Essential hypertension Folate deficiency anemia Heart failure ([facility]) Hypotension 11/22/2023 Megaloblastic anemia VT (myocardial infarction) ([facility]) 06/2023 Muscle weakness (generalized) Myocardial infarct ([facility]) Obesity Obstructive sleep apnea SARAH (obstructive sleep apnea) Pancytopenia ([facility] Presence of coronary artery bypass graft stent Shock ([facility]) 10/05/2023 Supplemental oxygen dependent Past Surgical History: Past Surgical History: Procedure Laterality Date CARDIAC SURGERY X2 Transcutaneous aortic valve replacement/Transfemoral/Carpenter N/A 11/25/2023 Performed by Henrietta Arias MD at [facility] CARDIAC CATH LABS Social/ Cognitive/ Economic: Alert/oriented Brief Clinical Summary: 73 y/o male admitted for nausea, vomiting, weakness, diarrhea x 1 week. PMHx recurrent UTI, falls, and syncope. Patient has a significant history for essential hypertension, Diabetes type 2, chronic back pain scheduled for surgery 02/2024, CAD, obstructive sleep apnea, COPD on home oxygen, TAVR, nonobstructing renal calculi. Biochemical Data, Medical Tests, and Procedures: -- Labs: Results from last 3 days Lab Units 03/09/2434403/08/24223403/08/24133103/08/24 0245 SODIUM mmol/L 140 -- 139 135 POTASSIUM mmol/L 3.9 3.7 3.6 4.0 CHLORIDE mmol/L 107 -- 104 105 CO2 mmol/L 21* -- 20* 15* BUN mg/dL 53* -- 67* 70* CREATININE mg/dL 3.89* -- 5.53* 6.49* CALCIUM mg/dL 8.3* -- 7.8* 8.7 ALBUMIN g/dL 2.9* -- 3.2 3.3 ALK PHOS U/L 126 -- 136* 152* ALT U/L 9 -- 11 18 AST U/L 14 -- 14 21 Results from last 7 days Lab Units 03/09/24 0822 03/09/2434703/09/2434403/08/24223703/08/24194203/08/24 1758 03/08/24 1332 BEDSIDE GLUCOSE mg/dL 103* 128* -- 125* 115* 127* -- GLUCOSE mg/dL -- -- 119* -- -- -- 168* Results from last 3 days Lab Units 03/09/2434403/08/24133103/08/24 0245 WBC X10E9/L 7.3 9.5 10.3 HEMOGLOBIN g/dL 7.3* 7.9* 8.6* HEMATOCRIT % 21.0* 23.1* 25.6* PLATELETS X10E9/L 147* 188 192 MCV fL 99 99 100 Results from last 3 days Lab Units 03/09/2434403/08/24223403/08/24133103/08/24 0245 MAGNESIUM mg/dL 2.1 -- 1.7* 1.2* IONIZED MAGNESIUM mmol/L -- 0.58 -- -- Results from last 3 days Lab Units 03/09/24 0605 03/09/2434403/08/24223403/08/24 1332 PHOSPHORUS mg/dL -- 3.9 -- 4.8 CALCIUM, IONIZED mg/dL 4.7 -- 4.4* -- Results from last 3 days Lab Units 03/09/24 0345 03/08/24 1332 03/08/24 0828 BILIRUBIN ENMANUEL -- -- Negative TOTAL BILIRUBIN mg/dL 0.3 0.4 -- Lab Results Component Value Date HGBA1C 5.5 09/21/2023 Lab Results Component Value Date IRON 122 01/16/2024 TIBC 227 (L) 01/16/2024 FERRITIN 359 (H) 01/16/2024 Lab Results Component Value Date IRONSAT 54 (H) 01/16/2024 Lab Results Component Value Date CHOL 136 (L) 10/05/2023 Lab Results Component Value Date CHDL 3.3 10/05/2023 Lab Results Component Value Date HDL 41 10/05/2023 Lab Results Component Value Date LDLCALC 78 10/05/2023 Lab Results Component Value Date TRIG 83 10/05/2023 Lab Results Component Value Date VERYLOWLIP 17 10/05/2023 Lab Results Component Value Date [id number] 364 01/16/2024 Lab Results Component Value Date FOLATE >25.0 01/16/2024 No results found for: VITD25 Comments (labs): Gluc 119(H), Cr 3.89(H), BUN 53(H), Ca 8.3(L), TP 5.6(L), Alb 2.9(L), GFR 15(L) Medications/ Parenteral: Calcium Gluconate, Cefepime, Lactated Ringers @ 100 mL/hr, Proamatine, Levophed, Oxycodone, K-tab Medications Prior to Admission Medication Sig Dispense Refill Last Dose/Taking aspirin 81 mg Take 1 tablet (81 mg total) by mouth in the morning. Taking cyanocobalamin 500 MCG tablet Take 1 tablet (500 mcg total) by mouth in the morning. Taking furosemide (LASIX) 20 mg tablet TAKE 1 TABLET BY MOUTH TWICE DAILY (IN THE MORNING and late afternoon) Taking lisinopriL (PRINIVIL,ZESTRIL) 2.5 mg tablet Take 1 tablet (2.5 mg total) by mouth in the morning. Taking metFORMIN XR (GLUCOPHAGE XR) 750 mg 24 hr tablet Take 1 tablet (750 mg total) by mouth nightly. Taking metoprolol tartrate (LOPRESSOR) 25 mg tablet Take 1 tablet (25 mg total) by mouth in the morning. Taking PARoxetine (PAXIL) 10 mg tablet Take 1 tablet (10 mg total) by mouth every morning. Taking pioglitazone (ACTOS) 30 mg tablet Take 1 tablet (30 mg total) by mouth in the morning. Taking simvastatin (ZOCOR) 40 mg tablet Take 1 tablet (40 mg total) by mouth nightly. Taking ticagrelor (BRILINTA) 90 mg tablet Take 1 tablet (90 mg total) by mouth every 12 (twelve) hours. Taking nitroglycerin (NITROSTAT) 0.[address] 1 tablet (0.4 mg total) under the tongue every 5 (five) minutes as needed for chest pain. Current Facility-Administered Medications Medication Dose Route Frequency Provider Last Rate Last Admin acetaminophen (TYLENOL) tablet 325 mg 325 mg oral Q6H PRN APRIL Moody calcium gluconate IVPB 1000 mg/50 mL (20 mg/mL premix) 1,000 mg intravenous PRN APRIL Moody Stopped at 03/09/24 0105 Or calcium gluconate IVPB 2000 mg/100 mL (20 mg/mL premix) 2,000 mg intravenous PRN APRIL Moody Or calcium gluconate 3,000 mg in sodium chloride 0.9 % 100 mL IVPB 3,000 mg intravenous PRN APRIL Abraham cefEPime (MAXIPIME) 1,000 mg in sodium chloride 0.9 % 50 mL IVPB-MBP 1,000 mg intravenous Q24H APRIL Moody Stopped at 03/09/24 0753 dextrose (GLUTOSE) 40 % gel 15 g 15 g oral PRN APRIL Moody dextrose 50 % in water (D50W) 50% solution 25 mL 25 mL intravenous PRN APRIL Moody glucagon HCL injection 1 mg 1 mg intramuscular PRN APRIL Moody heparin (porcine) injection 5,000 Units 5,000 Units subcutaneous Q8H [facility] APRIL Moody 5,000 Units at 03/09/24 0604 insulin lispro (HumaLOG) injection 2-10 Units 2-10 Units subcutaneous Q4H APRIL Correa ipratropium-albuteroL (DUONEB) 0.5 mg-3 mg(2.5 mg base)/3 mL nebulizer solution 3 mL 3 mL nebulization Q6H PRN APRIL Moody lactated ringers infusion 75 mL/hr intravenous Continuous Ale Bowser MD 75 mL/hr at 03/09/24 1036 75 mL/hr at 03/09/24 1036 magnesium sulfate IVPB 2000 mg/50 mL in iso-osmotic water (40 mg/mL premix) 2,000 mg intravenous PRN APRIL Moody Stopped at 03/08/24 1924 Or magnesium sulfate IVPB 4000 mg/100 mL in iso-osmotic water (40 mg/mL premix) 4,000 mg intravenous PRN APRIL Moody midodrine (PROAMATINE) tablet 5 mg 5 mg oral TID APRIL Moody 5 mg at 03/09/24 0604 norepinephrine (LEVOPHED) infusion 8 mg/250 mL in sod chlor 0.9% (0.032 mg/mL PMX) 0.01-0.4 mcg/kg/min intravenous Continuous Bhaskar Edna IVAPRIL Stopped at 03/09/24 1025 ondansetron (PF) (ZOFRAN) injection 4 mg 4 mg intravenous Q6H PRN APRIL Moody oxyCODONE-acetaminophen (PERCOCET) 5-325 mg per tablet 1 tablet 1 tablet oral Q6H PRN Lou Medrano MD 1 tablet at 03/09/24 0355 potassium chloride (K-TAB,KLOR-CON) CR tablet 20-50 mEq 20-50 mEq oral PRN APRIL Moody 20 mEq at 03/09/24 0004 Or potassium chloride (KAYCIEL) 20 mEq/15 mL solution 20-50 mEq 20-50 mEq oral PRN APRIL Moody potassium chloride IVPB 10 mEq/50 mL in water (0.2 mEq/mL premix) 10 mEq intravenous PRN Ginger Lew APRN-RN REFERRAL Or potassium chloride IVPB 10 mEq/100 mL in water (0.1 mEq/mL premix) 10 mEq intravenous PRN Ginger Walsh APRN-RN REFERRAL sodium phosphate 20 mmol in sodium chloride 0.9 % 250 mL IVPB 20 mmol intravenous PRN Ginger Walsh APRN-RN REFERRAL Or sodium phosphate 20 mmol in sodium chloride 0.9 % 100 mL IVPB 20 mmol intravenous PRN Ginger Walsh APRN-RN REFERRAL Or sod phos di, mono-K phos mono (K-PHOS NEUTRAL) 250 mg tablet 2 tablet 2 tablet oral PRN Ginger Walsh APRN-RN REFERRAL sodium chloride 0.9 % infusion 3 mL/hr intra-arterial Continuous Pavan Beltre MD 3 mL/hr at 03/09/24 1027 3 mL/hr at 03/09/24 1027 Nutrition Focused Physical Findings Last BM 03/08 Skin (per nursing flow sheets): Skin Color: Pale; Pigmented (03/09/24799) Skin Temp: Warm; Dry (03/09/24 08) Wound (per nursing flow sheets): Wound 03/08/24 1 Skin Tear Calf Left-Site Assessment: Unable to assess (drsg in place) (03/09/24 08) Gastrointestinal (per nursing flow sheets): Abdomen Assessment: Soft; Rounded (03/09/24 08) Last BM Date: 03/08/24 (per prev documentation) (03/09/24 08) RUQ Bowel Sounds: Active (03/09/24 08) LUQ Bowel Sounds: Active (03/09/24 08) RLQ Bowel Sounds: Active (03/09/24 08) LLQ Bowel Sounds: Active (03/09/24 08) GI Symptoms: None (03/09/24 08) Edema (per nursing flow sheets): Generalized Edema: +1 (03/09/24 0344) RLE Edema: +1 (03/09/24 08) LLE Edema: +1 (03/09/24 08) Overall Appearance: Unable to assess, this RD is virtual Intake/ Output Last 24 hrs: Intake/Output Summary (Last 24 hours) at 03/09/2024 1114 Last data filed at 03/09/2024 1052 Gross per 24 hour Intake 2777.5 ml Output 1470 ml Net 1307.5 ml Food/Nutrition Related History: Diet History: Multiple attempts to contact patient unsuccessful. Patient currently NPO for procedure. Nutrition Knowledge/Beliefs/Attitudes: N/A Allergies: No Known Allergies Diet/ Nutrition Order Review: Dietary Orders (From admission, onward) Start Ordered 03/08/242102 Adult diet Regular Texture; Consistent Carb 210 grams (1800 kcal); No Added Salt (3-4gm Sodium) Diet effective now Question Answer Comment Diet Type: Regular Texture Carbohydrate Modifiers: Consistent Carb 210 grams (1800 kcal) Sodium Modifiers: No Added Salt (3-4 gm Sodium) 03/08/242102 Diet Intakes: NPO for procedure Oral Supplemental Intake/ Acceptance: N/A Anthropometrics: Ht Readings from Last 1 Encounters: 03/08/24 152.4 cm (5') Wt Readings from Last 20 Encounters: 03/09/24 84.3 kg (185 lb 13.6 oz) 03/08/24 71.2 kg (157 lb) 01/20/24 85.3 kg (188 lb 1.6 oz) 12/09/23 94.8 kg (209 lb) 11/30/23 100.8 kg (222 lb 3.6 oz) 11/21/23 96.8 kg (213 lb 4.8 oz) 10/31/23 96.4 kg (212 lb 8.4 oz) 10/24/23 97.5 kg (214 lb 15.2 oz) 10/12/23 105.6 kg (232 lb 12.9 oz) 10/04/23 106.1 kg (234 lb) 09/21/23 106.1 kg (234 lb) 09/11/23 101.7 kg (224 lb 3.2 oz) 08/06/23 110.5 kg (243 lb 9.6 oz) 07/28/23 101.1 kg (222 lb 14.2 oz) Last 3 Weight Readings 03/08/24 1100 03/09/24 0600 Weight: 83.4 kg (183 lb 13.8 oz) 84.3 kg (185 lb 13.6 oz) Admit Weight: 83.4 kg (Bed Scale, 03/08) Usual Body Weight: -- Beccaria Body Weight: 48.2 kg Percent Beccaria Body Weight: 173% Weight Changes: appears stable Body Mass Index: Body mass index is 36.3 kg/m . BMI Category: Obese class 2 (35.00- 39.99) Comparative Standards: Estimated Energy Needs: 5853-5845 kcals daily. Method and weight used: 25-32 kcal/kg IBW Estimated Protein Needs: 58-96 grams daily. Method and weight used: 1.2-2 g protein/kg IBW Estimated Fluid Needs: 0144-8708 ml daily. Method weight used: 1 ml/kcal Comments: Floor needs based on BMI Malnutrition Status: Malnutrition Present: unable to assess NUTRITION DIAGNOSIS: Intake Diagnosis: Predicted suboptimal energy intake (NI 1.4) related to nausea/vomiting as evidenced by EMR documentation. NUTRITION INTERVENTIONS: Resume diet order when medically appropriate Consider Ensure Plus HP on trays if po intake is <50% Coordination of care: secure chat with RN on 03/09 RECOMMENDATIONS: Appreciate %meal intake documented in RN Flowsheets to allow for ongoing nutrition assessments GOAL(S): Meet estimated calorie and protein needs. NUTRITION MONITORING AND EVALUATION: PO intake, labs, I/Os, weights, skin integrity, plan of care Marc Larson MS, RDN, LD, [facility] Clinical Dietitian III Direct Line * Ale Bowser MD - 03/09/2024 10:28 AM EST Images from the original note were not included. NEPHROLOGY PROGRESS NOTE Assessment 1. Acute kidney injury attributed to acute tubular necrosis versus prerenal fluctuations in the setting of sepsis and shock Renal function improving nicely with creatinine level down to 3.89 mg/dL today. No indication for dialysis 2. Hypotension/shock: Rule out underlying infection/sepsis. Blood cultures are pending, continue empiric antibiotics Blood cultures are negative 3. Syncopal event possibly from orthostatic hypotension, continue maintenance IV fluids 4. Metabolic acidosis in the setting of recent diarrhea and acute kidney injury has been corrected with alkaline IV infusion 5. Volume status: Beccaria volume state, will cut back on LR to 75 mL/hour. Plan 1. Cut back on LR at 75 mL/hour Subjective/Interval history Has come off Levophed. Problem List Acute kidney injury likely related to Acute Tubular Necrosis secondary to septic shock. Creatinine baseline 1.1 mg/dL. Renal ultrasound December 2023 shows right kidney 9 cm, left kidney 10.2 cm withno hydronephrosis. From September of 2023 serum protein electrophoresis revealed monoclonal protein of0.3 grams/deciliter, serum immunofixation was negative monoclonal bands, LUIGI and anti-GBM were negative, C3 was 136 and C4 was 35, free kappa to lambda ratio was 1.6. Urinalysis from February 2024 showed 100 mg/dL of protein, no RBCs specific gravity 1.025. Hypotension/shock Diabetes mellitus type 2 Hypertension Severe aortic stenosis status post TAVR 11/25/2023 CAD status post CABG x2 with unknown vessels involved in the past. Also has had PTCA/stent in July 2023, no report available. This was done at [facility] in [place]. COPD on home oxygen Obesity Obstructive sleep apnea Hyperlipidemia History of methicillin-resistant Staphylococcus aureus bacteremia in July of 2023 resulting in hospitalization. A source was never identified. He completed a 28 day course of vancomycin as an outpatient to treat the bacteremia of unknown source. Recent Proteus mirabilis urinary tract infection August 2020 History of megaloblastic anemia with folate deficiency 2D echo November 2023 shows EF 55-60%. Prior THIERRY from October 2023 showed preserved EF and normal right ventricular systolic function. Physical Exam Admission Weight: Weight: 83.4 kg (183 lb 13.8 oz) I/O last 3 completed shifts: In: 2309.7 [P.O.:420; I.V.:1743; IV Piggyback:146.7] Out: 920 [Urine:920] Weight change: Wt Readings from Last 3 Encounters: 03/09/24 84.3 kg (185 lb 13.6 oz) 03/08/24 71.2 kg (157 lb) 01/20/24 85.3 kg (188 lb 1.6 oz) Vitals: Vitals: 03/09/24 0824 03/09/24 0900 03/09/24 1000 03/09/24 1025 BP: Pulse: 55 56 55 71 Resp: 20 19 17 14 Temp: TempSrc: SpO2: 99% 94% 93% (!) 83% Weight: Height: General: Alert, oriented x 3 and in no obvious distress Psychiatric: Has a normal mood and affect. HEENT: Head normocephalic. Eyes: Conjunctivae and EOM are normal. Pupils are equal, round and reactive to light. Cardiovascular: Normal rate, regular rhythm and normal heart sounds. No JVD. Pulmonary/Chest: Air entry bilaterally equal. No wheezes or rales. Abdominal: Soft, bowel sounds are normal and there was no tenderness rebound or guarding. Musculoskeletal: Normal range of motion. No tenderness. Neurological: No obvious deficits. Skin: No rash noted. Extremities: No edema Meds: Current Meds: cefepime (MAXIPIME) IV, 1,000 mg, intravenous, Q24H heparin (porcine), 5,000 Units, subcutaneous, Q8H LYNN insulin lispro, 2-10 Units, subcutaneous, Q4H midodrine, 5 mg, oral, TID Continuous Infusions: dextrose 5 % in water, 100 mL/hr lactated ringer's, 100 mL/hr, Last Rate: 100 mL/hr (03/09/24 1027) norepinephrine, 0.01-0.4 mcg/kg/min, Last Rate: Stopped (03/09/24 1025) sodium chloride 0.9 %, 10 mL/hr sodium chloride 0.9 %, 10 mL/hr sodium chloride 0.9 %, 10 mL/hr, Last Rate: Stopped (03/09/24 0820) sodium chloride 0.9 %, 3 mL/hr, Last Rate: 3 mL/hr (03/09/24 1027) Laboratory Studies Results from last 7 days Lab Units 03/09/24 0345 03/08/24 2235 03/08/24 1332 03/08/24 0245 SODIUM mmol/L 140 -- 139 135 POTASSIUM mmol/L 3.9 3.7 3.6 4.0 CHLORIDE mmol/L 107 -- 104 105 CO2 mmol/L 21* -- 20* 15* BUN mg/dL 53* -- 67* 70* CREATININE mg/dL 3.89* -- 5.53* 6.49* CALCIUM mg/dL 8.3* -- 7.8* 8.7 PHOSPHORUS mg/dL 3.9 -- 4.8 -- MAGNESIUM mg/dL 2.1 -- 1.7* 1.2* Results from last 7 days Lab Units 03/09/24 0345 03/08/24 1332 03/08/24 0245 WBC X10E9/L 7.3 9.5 10.3 HEMOGLOBIN g/dL 7.3* 7.9* 8.6* HEMATOCRIT % 21.0* 23.1* 25.6* PLATELETS X10E9/L 147* 188 192 Results from last 7 days Lab Units 03/09/24 0345 03/08/24 1332 03/08/24 0245 MAGNESIUM mg/dL 2.1 1.7* 1.2* Lab Results Component Value Date CALCIUM 8.3 (L) 03/09/2024 Lab Results Component Value Date IRON 122 01/16/2024 TIBC 227 (L) 01/16/2024 FERRITIN 359 (H) 01/16/2024 Please contact me at [phone] (Office) or [phone] (Answering service) with any questions. Please feel free to contact me through [employer] Secure chat during the daytime hours, if no response after 5 minutes then call the answering service. Ale Bowser MD [facility] This note was created with the assistance of a speech-recognition program. Although the intention is to generate a document that actually reflects the content of the visit, no guarantees can be provided that every mistake has been identified and corrected by editing. * Bhaskar Edna IV, PER DIEM PHYSICAL THERAPIST ASSISTANT-RN REFERRAL - 03/09/2024 8:30 AM EST Images from the original note were not included. CRITICAL CARE PROGRESS NOTE Name: Brian Mandel Age: 73 y.o. Date: 03/09/24 Length of Stay 1 day(s) Assessment: Acute kidney injury 2/2 ATN, improved Cr 3.8 Septic shock requiring vasopressor support, improving Recent Pseudomonas UTI Acute hypoxemic respiratory insufficiency requiring supplemental oxygen Chronic, non-obstructive bilateral renal calculi Hx of COPD on home oxygen Hx of severe aortic stenosis s/p TAVR in 11/2023 Hx of multivessel CAD s/p CABG x 2 Plan: Supplemental O2 support to maintain SpO2 > 90% Titrate Norepinephrine infusion to maintain SBP > 90 Continue Midodrine as ordered Monitor urine output, + 1.4 L today, nephrology following Monitor blood glucose levels per protocol, on SS coverage Continue empiric Cefepime, cultures negative to date DVT prophylaxis - SQ Heparin Nutrition - tolerating regular diet Electrolyte replacement per ICU sliding scale protocol Encourage mobility and IS usage Outpatient management of renal calculi per urology CODE STATUS: FULL DISPOSITION: Continue in MICU for hemodynamic monitoring / management LINES/DRAINS: Right radial arterial catheter - 03/08/2024 PIV x 3 Most recent imaging / lab studies have been reviewed Please also note additional orders Plan of care discussed with nursing and attending physician MACO Ovalle-SHERIDAN Acute Care Nurse Practitioner [facility] Critical Care Critical care time: 33 minutes. Non-contiguous time with attending MD, excluding procedures. Subjective: No acute overnight events. Examined while resting in bed. Denies chest pain or SOB, remains on low dose vasopressor support at this time. Hospital Problem: Principal Problem: Acute renal failure (ARF) ([facility] OBJECTIVE Physical Exam: Constitutional: Well-developed, well-nourished, no acute distress Head: Normocephalic and atraumatic Heart: S1, S2, sinus bradycardia, no gallops, rubs, or murmurs. Distal pulses are palpable Lungs: Clear throughout all lobes, diminished in the bases, resps easy and non-labored Neuro: ROB, CERVANTES, awake and appropriately following commands GI: Abd softly distended and rounded with active BS : Urine is yellow and clear per urinal Extremities: Minimal peripheral edema noted Results from last 3 days Lab Units 03/09/24 0345 03/08/24 2235 03/08/24 1332 03/08/24 0245 BUN mg/dL 53* -- 67* 70* CREATININE mg/dL 3.89* -- 5.53* 6.49* POTASSIUM mmol/L 3.9 3.7 3.6 4.0 CO2 mmol/L 21* -- 20* 15* CHLORIDE mmol/L 107 -- 104 105 MAGNESIUM mg/dL 2.1 -- 1.7* 1.2* AST U/L 14 -- 14 21 ALT U/L 9 -- 11 18 ALK PHOS U/L 126 -- 136* 152* Results from last 3 days Lab Units 03/08/24 0245 INR 1.2* PROTIME sec 13.6* Results from last 3 days Lab Units 03/09/24 0345 03/08/24 1332 03/08/24 0245 WBC X10E9/L 7.3 9.5 10.3 HEMOGLOBIN g/dL 7.3* 7.9* 8.6* HEMATOCRIT % 21.0* 23.1* 25.6* PLATELETS X10E9/L 147* 188 192 MCV fL 99 99 100 MCH pg 34.0 33.9 33.7 MCHC g/dL 34.5 34.2 33.7 RDW % 19.5* 19.5* 19.5* EOS ABS AUTO X10E9/L 0.2 0.1 0.1 Microbiology Results Procedure Component Value Units Date/Time Mrsa Pcr nasal swab [[id number]] Collected: 03/08/24 134 Specimen: Nasal Updated: 03/08/24 155 Mrsa PCR Negative Urine culture [[id number]] Collected: 03/08/24826 Specimen: Urine Updated: 03/08/24 132 Blood culture [[id number]] Collected: 03/08/24317 Specimen: Blood Updated: 03/08/242247 Culture NO GROWTH <24 HRS Blood culture [[id number]] Collected: 03/08/24306 Specimen: Blood Updated: 03/08/242247 Culture NO GROWTH <24 HRS Results from last 7 days Lab Units 03/09/24 0348 03/09/24 0345 03/08/24 2238 03/08/24 1943 03/08/24 1758 03/08/24 1332 03/08/24 1057 03/08/24 0245 BEDSIDE GLUCOSE mg/dL 128* -- 125* 115* 127* -- 180* -- GLUCOSE mg/dL -- 119* -- -- -- 168* -- 123* Microbiology Results Procedure Component Value Units Date/Time Mrsa Pcr nasal swab [[id number]] Collected: 03/08/241344 Specimen: Nasal Updated: 03/08/24 155 Mrsa PCR Negative Urine culture [[id number]] Collected: 03/08/24826 Specimen: Urine Updated: 03/08/24 132 Blood culture [[id number]] Collected: 03/08/24317 Specimen: Blood Updated: 03/08/242247 Culture NO GROWTH <24 HRS Blood culture [[id number]] Collected: 03/08/24306 Specimen: Blood Updated: 03/08/242247 Culture NO GROWTH <24 HRS Lines/Drains Peripheral IV 03/08/24 Left Antecubital (Active) Line Status Saline locked;Alcohol sponge cap maintained;Connections checked/tightened 03/09/24 034 Site Assessment Clean;Dry;Intact 03/09/24 034 Dressing Type Occlusive;Transparent 03/09/24 034 Dressing Status Clean;Dry;Intact 03/09/24 034 Dressing Intervention Initial dressing 03/08/24 1055 Dressing Change Due (Non-Gauze) 03/15/24 03/08/24 105 Peripheral IV 03/08/24 Right Antecubital (Active) Line Status Infusing;Connections checked/tightened 03/09/24343 Site Assessment Clean;Dry;Intact 03/09/24 034 Dressing Type Occlusive;Transparent 03/09/24 034 Dressing Status Clean;Dry;Intact 03/09/24 034 Dressing Intervention Initial dressing 03/08/24 1055 Peripheral IV 03/08/24 Anterior;Left Forearm (Active) Line Status Infusing;Connections checked/tightened 03/09/24 034 Site Assessment Clean;Dry;Intact 03/09/24 034 Dressing Type Occlusive;Transparent 03/09/24 034 Dressing Status Clean;Dry;Intact 03/09/24 034 Dressing Intervention Initial dressing 03/08/24 2344 Dressing Change Due (Non-Gauze) 03/15/24 03/08/24 234 Arterial Line 03/08/24 Right Radial (Active) Line Status Infusing;Pulsatile blood flow 03/09/24 035 Line Interventions Leveled;Connections checked and tightened;Pressure bag maintained;Armboard 03/09/24 035 Waveform Appropriate 03/09/24 035 Site Assessment Clean;Dry;Intact 03/09/24 034 Dressing Type Occlusive;Transparent 03/09/24 034 Dressing Status Clean;Dry;Intact 03/09/24 034 Color/Movement/Sensation Capillary refill less than 3 sec 03/09/24 034 Patient Tolerance of Line Care Tolerated well 03/09/24343 Line Necessity Invasive hemodynamic monitoring 03/09/24343 Line Necessity Reviewed With CC 03/08/24 194 Bhaskar Bishop IV, PER DIEM PHYSICAL THERAPIST ASSISTANT-RN REFERRAL 03/09/24 0989 Cosigned by Pavan Beltre MD at 03/09/2024 4:54 PM EST * Dorothy Babatunde [facility] - 03/08/2024 12:59 PM EST [facility] Department of Pharmacy Pharmacist to Physician Communication The dose of cefepime for pseudomonas UTI has been changed to 1,000 mg IV every 24 hours infused over 4 hours per the [facility] approved renal dosing guidelines, based on an estimated creatinine clearance is 7 mL/min (A) (by C-G formula based on SCr of 6.49 mg/dL (H)). Last dose received at outside hospital on 03/08 at 0400. The dose of meropenem for pseudomonas UTI has been changed to 500 mg IV every 24 hours infused over3 hours per the [facility] approved renal dosing guidelines, based on an estimated creatinine clearance is7 mL/min (A) (by C-G formula based on SCr of 6.49 mg/dL (H)). Last dose received at outside hospital on 03/08 at 0530. Thank you, Dorothy Fine [facility] 03/08/24 Ext. [phone] documented in this encounter[facility]01[facility] History and physical note* Piero Dumont Jr., MD - 03/16/2024 11:02 AM EST HISTORY AND PHYSICAL INTERVAL NOTE: Brian Mandel 1950 [id number] H&P reviewed. The patient was examined and there are no changes to the H&P. Piero Dumont Jr, MD Source Note - APRIL Moody - 03/08/2024 12:48 PM EST Images from the original note were not included. CRITICAL CARE HISTORY & PHYSICAL Name: Brian Mandel Date: 03/08/2024 Length of Stay: 0 day(s) No chief complaint on file. Chief Complaint: Nausea vomiting diarrhea x1 week Acute kidney injury History of Present Illness: Brian Mandel is a 73 y.o. year-old male who presented to an outlying facility [facility] on03/08/2024 with complaints of nausea, vomiting, weakness, diarrhea x1 week. Upon initial lab values, creatinine was noted to be 6.49, potassium 4.0, CO2 15, BUN 70, hemoglobin 8.6, white blood cell count 10.3, alkaline phosphate 152, high sensitivity troponin 22/23, rapid lactate 3.7. CT of abdomenpelvis revealed known nonobstructing bilateral renal stones and no other abnormalities. CT of chestshowed left pleural effusions and subpleural effusions in the left lower lobe, focal area of mild tracheal stenosis near the thoracic outlet. Venous blood gas demonstrated a pH of 7.27, PO2 of 21, F2kkjvccaqcu of 28 base of 10, bicarb 15.9, pCO2 33.9. Patient received 1 L of fluid, started on on anorepinephrine infusion, received 2 amps of bicarb and bicarb infusion. Merrem and ceftriaxone weregiven empirically. Patient had a recent hospitalization for UTI positive Pseudomonas discharged on Levaquin. Nephrology was consulted on this patient and the decision was made to transfer him to [facility] for further management and care. He arrived on the unit hemodynamically stable on 0.16 mcg/kg per minute norepinephrine. Patient is alert and oriented x 4. Normal sinus on monitor. Systolic blood pressure of 87/44 map 59. Orders placed with attending physician at the bedside. Of note patient has been treated multiple times for recurrent UTI, falls, and syncope. Patient has a significant history for essential hypertension, Diabetes type 2, chronic back pain scheduled for surgery 02/2024, CAD, obstructive sleep apnea, COPD on home oxygen, TAVR, nonobstructing renal calculi. See chart for further medical history. Past Medical History: Diagnosis Date Acute coronary syndrome [place] Anxiety disorder Chronic back pain Chronic obstructive asthma with exacerbation [place]) COPD (chronic obstructive pulmonary disease) [place]) Diabetes mellitus type 2, controlled ([facility]) Essential hypertension Folate deficiency anemia Heart failure ([facility]) Hypotension 11/22/2023 Megaloblastic anemia VT (myocardial infarction) ([facility]) 06/2023 Muscle weakness (generalized) Myocardial infarct ([facility] Obesity Obstructive sleep apnea SARAH (obstructive sleep apnea) Pancytopenia ([facility]) Presence of coronary artery bypass graft stent Shock ([facility]) 10/05/2023 Supplemental oxygen dependent Past Surgical History: Procedure Laterality Date CARDIAC SURGERY X2 Transcutaneous aortic valve replacement/Transfemoral/Carpenter N/A 11/25/2023 Performed by Henrietta Arias MD at [facility] CARDIAC CATH LABS Review of Systems Gastrointestinal: Positive for nausea, vomiting and diarrhea. Musculoskeletal: Positive for back pain. Skin: Positive for rash. Flea bites History obtained from the patient Medications Prior to Admission Medication Sig Dispense Refill Last Dose/Taking acetaminophen (TYLENOL) 325 mg tablet Take 2 tablets (650 mg total) by mouth every 8 (eight) hours as needed for pain. (Patient not taking: Reported on 11/22/2023) albuterol (PROVENTIL,VENTOLIN) 2.5 mg /3 mL (0.083 %) nebulizer solution Inhale 3 mL (2.5 mg total)by nebulization every 6 (six) hours as needed for wheezing. Patient takes it every 2 hours amitriptyline (ELAVIL) 25 mg tablet Take 1 tablet (25 mg total) by mouth in the morning. cyanocobalamin 500 MCG tablet Take 1 tablet (500 mcg total) by mouth. FLUoxetine (PROzac) 20 MG tablet Take 1 tablet (20 mg total) by mouth. fluticasone propionate (FLONASE) 50 mcg/actuation nasal spray Administer 1 spray into each nostril in the morning. 11.1 mL 0 furosemide (LASIX) 20 mg tablet TAKE 1 TABLET BY MOUTH TWICE DAILY (IN THE MORNING and late afternoon) metFORMIN XR (GLUCOPHAGE XR) 750 mg 24 hr tablet Take 1 tablet (750 mg total) by mouth nightly. metoprolol succinate XL (TOPROL XL) 25 mg 24 hr tablet Take 1 tablet (25 mg total) by mouth in the morning. 30 tablet 0 nitroglycerin (NITROSTAT) 0.[address] 1 tablet (0.4 mg total) under the tongue every 5 (five) minutes as needed for chest pain. PARoxetine (PAXIL) 10 mg tablet Take 1 tablet (10 mg total) by mouth every morning. pioglitazone (ACTOS) 30 mg tablet Take 1 tablet (30 mg total) by mouth in the morning. simethicone (MYLICON) 80 mg chewable tablet Chew 1 tablet (80 mg total) and swallow every 6 (six) hours as needed for flatulence. (Patient not taking: Reported on 11/22/2023) simvastatin (ZOCOR) 40 mg tablet Take 1 tablet (40 mg total) by mouth. ticagrelor (BRILINTA) 90 mg tablet Take 1 tablet (90 mg total) by mouth every 12 (twelve) hours. No Known Allergies Family History Problem Relation Age of Onset Diabetes Mother Stroke Mother Cancer Mother Heart attack Mother Heart attack Father Stroke Father Diabetes Father Cancer Father O2 Device: Nasal cannula PHYSICAL EXAM: General: In bed. Well-developed, well-nourished, no apparent distress. Head: Normocephalic, atraumatic. Eyes: PERRL, conjunctivae normal. Cataracts, lens replacement. Neck: No tracheal deviation, neck supple. Cardiovascular: Regular rate and rhythm. Mild edema, pulses palpable Pulmonary: Clear/diminished to auscultation bilaterally. Oxygen: 2 L NC Abdomen: Soft, non-distended. Neurological: No gross deficits. Moving all extremities. Skin: Warm, old flea bites noted bilaterally on lower extremity Extremities: No cyanosis or clubbing. 1+ peripheral edema. Pulses: 2+ peripheral pulses bilaterally in upper and lower extremities. Microbiology Results Procedure Component Value Units Date/Time Urine culture [[id number]] Collected: 03/08/24 08 Specimen: Urine Updated: 03/08/24 09 Blood culture [[id number]] Collected: 03/08/24317 Specimen: Blood, Peripheral Draw Updated: 03/08/24324 Blood culture [[id number]] Collected: 03/08/24 030 Specimen: Blood, Peripheral Draw Updated: 03/08/24323 Patient Active Problem List Diagnosis Chest pain Macrocytic anemia Anxiety disorder Benign essential hypertension Chronic diastolic congestive heart failure (CMS-HCC) Chronic respiratory failure with hypoxia (CMS-HCC) COPD (chronic obstructive pulmonary disease) (CMS-HCC) 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 Dyslipidemia Dyspnea Gastroesophageal reflux disease without esophagitis HTN (hypertension) Major depressive disorder Mixed hyperlipidemia Obstructive sleep apnea syndrome Old myocardial infarction Type 2 diabetes mellitus with hyperglycemia, without long-term current use of insulin ([facility] Weakness generalized Pleural effusion, left Community acquired pneumonia of left lower lobe of lung Bacteremia due to methicillin resistant Staphylococcus aureus Acute on chronic congestive heart failure, unspecified heart failure type ([facility]) CRISTINE (acute kidney injury) ([facility] Acute coronary syndrome ([facility]) Aortic stenosis Congestive heart failure ([facility]) Difficulty walking Dizziness Erectile dysfunction Generalized muscle weakness History of myocardial infarction Morbid (severe) obesity due to excess calories ([facility] Mucopurulent chronic bronchitis ([facility]) Other chronic pain Postconcussion syndrome Psychophysiological insomnia Pure hypercholesterolemia Rotator cuff tear arthropathy of left shoulder Rotator cuff tear, non-traumatic, right Solitary pulmonary nodule Spondylosis of lumbosacral region without myelopathy or radiculopathy Tachycardia Urinary retention Leukocytes in urine Iron deficiency anemia secondary to inadequate dietary iron intake Recurrent left pleural effusion Anxiety and depression Weakness Hypomagnesemia Shock ([facility]) T12 compression fracture [place]) Hypotension Severe aortic stenosis Acute renal failure (ARF) ([facility]) Brian Mandel is a 73 y.o. year-old male transferred from outlying facility after presenting with nausea, vomiting, and diarrhea for one week. Patient found to have a creatinine of 6.49 without electrolyte abnormalities. Admitted to [facility] for higher level of care and management ASSESSMENT Acute kidney injury, creatinine 6.49 (11-1.5 baseline) secondary to nausea vomiting diarrhea x1 week Concern for septic shock, on norepinephrine Recent admission for pneumonia, CRISTINE, and UTI positive for Pseudomonas placed on Levaquin at discharge Trace left pleural effusions and subpleural atelectasis and left lower lobe per CT chest 03/08/2024 Bilateral nonobstructing renal stones per CT abdomen pelvis on 03/08/2024, followed outpatient History of CRISTINE per chart History of recurrent falls with syncope ASCVD remote CABG, recent NSTEMI s/p KARL distal left main-ostial LCX 5/2 History of AAA History of megaloblastic anemia per chart COPD on home O2, 2 L nasal cannula Diabetes mellitus type 2 on metformin Essential hypertension Hyperlipidemia T12 compression fracture s/p multiple falls PLAN Supplemental oxygen to maintain SpO2 of 90% or greater Titrate/wean vasopressor to maintain map of 65 or greater Nephrology consult for CRISTINE Urology consult for recurrent UTI, bilateral nonobstructing renal stones Arterial line placement Antibiotic coverage consisting of cefepime and Merrem Zofran p.r.n. Nutrition: Clear liquids Activity: Bedrest DVT prophylaxis: Heparin subQ GI prophylaxis: Pepcid Glycemic control: Euglycemia, as indicated Replace electrolytes per protocol LINES/DRAINS/AIRWAYS: PIV x 2 Right arterial line CODE STATUS: Full DISPOSITION: Coronary intensive care Most recent imaging / lab studies independently reviewed. *Please also note additional orders Ginger Walsh APRN, CNP Acute Care Nurse Practitioner [facility] Please feel free to contact me via Patient Touch. CRITICAL CARE TIME: 45 minutes. Non-contiguous time with attending MD, excluding procedures. APRIL Moody 03/08/24 1419 APRIL Moody 03/08/24 1526 Cosigned by Pavan Beltre MD at 03/08/2024 4:13 PM EST * Piero Dumont Jr., MD - 03/15/2024 12:19 PM EST HISTORY AND PHYSICAL INTERVAL NOTE: Brian Mandel 1950 [id number] H&P reviewed. The patient was examined and there are no changes to the H&P. Piero Dumont Jr, MD Source Note - APRIL Moody - 03/08/2024 12:48 PM EST Images from the original note were not included. CRITICAL CARE HISTORY & PHYSICAL Name: Brian Mandel Date: 03/08/2024 Length of Stay: 0 day(s) No chief complaint on file. Chief Complaint: Nausea vomiting diarrhea x1 week Acute kidney injury History of Present Illness: Brian Mandel is a 73 y.o. year-old male who presented to an outlying facility shopping centre [facility] on03/08/2024 with complaints of nausea, vomiting, weakness, diarrhea x1 week. Upon initial lab values, creatinine was noted to be 6.49, potassium 4.0, CO2 15, BUN 70, hemoglobin 8.6, white blood cell count 10.3, alkaline phosphate 152, high sensitivity troponin 22/23, rapid lactate 3.7. CT of abdomenpelvis revealed known nonobstructing bilateral renal stones and no other abnormalities. CT of chestshowed left pleural effusions and subpleural effusions in the left lower lobe, focal area of mild tracheal stenosis near the thoracic outlet. Venous blood gas demonstrated a pH of 7.27, PO2 of 21, D2iemrcpllix of 28 base of 10, bicarb 15.9, pCO2 33.9. Patient received 1 L of fluid, started on on anorepinephrine infusion, received 2 amps of bicarb and bicarb infusion. Merrem and ceftriaxone weregiven empirically. Patient had a recent hospitalization for UTI positive Pseudomonas discharged on Levaquin. Nephrology was consulted on this patient and the decision was made to transfer him to [facility] for further management and care. He arrived on the unit hemodynamically stable on 0.16 mcg/kg per minute norepinephrine. Patient is alert and oriented x 4. Normal sinus on monitor. Systolic blood pressure of 87/44 map 59. Orders placed with attending physician at the bedside. Of note patient has been treated multiple times for recurrent UTI, falls, and syncope. Patient has a significant history for essential hypertension, Diabetes type 2, chronic back pain scheduled for surgery 02/2024, CAD, obstructive sleep apnea, COPD on home oxygen, TAVR, nonobstructing renal calculi. See chart for further medical history. Past Medical History: Diagnosis Date Acute coronary syndrome [place] Anxiety disorder Chronic back pain Chronic obstructive asthma with exacerbation ([facility] COPD (chronic obstructive pulmonary disease) [place] Diabetes mellitus type 2, controlled ([facility] Essential hypertension Folate deficiency anemia Heart failure ([facility]) Hypotension 11/22/2023 Megaloblastic anemia VT (myocardial infarction) ([facility] 06/2023 Muscle weakness (generalized) Myocardial infarct ([facility] Obesity Obstructive sleep apnea SARAH (obstructive sleep apnea) Pancytopenia ([facility] Presence of coronary artery bypass graft stent Shock ([facility]) 10/05/2023 Supplemental oxygen dependent Past Surgical History: Procedure Laterality Date CARDIAC SURGERY X2 Transcutaneous aortic valve replacement/Transfemoral/Carpenter N/A 11/25/2023 Performed by Henrietta Arias MD at [facility] CARDIAC CATH LABS Review of Systems Gastrointestinal: Positive for nausea, vomiting and diarrhea. Musculoskeletal: Positive for back pain. Skin: Positive for rash. Flea bites History obtained from the patient Medications Prior to Admission Medication Sig Dispense Refill Last Dose/Taking acetaminophen (TYLENOL) 325 mg tablet Take 2 tablets (650 mg total) by mouth every 8 (eight) hours as needed for pain. (Patient not taking: Reported on 11/22/2023) albuterol (PROVENTIL,VENTOLIN) 2.5 mg /3 mL (0.083 %) nebulizer solution Inhale 3 mL (2.5 mg total)by nebulization every 6 (six) hours as needed for wheezing. Patient takes it every 2 hours amitriptyline (ELAVIL) 25 mg tablet Take 1 tablet (25 mg total) by mouth in the morning. cyanocobalamin 500 MCG tablet Take 1 tablet (500 mcg total) by mouth. FLUoxetine (PROzac) 20 MG tablet Take 1 tablet (20 mg total) by mouth. fluticasone propionate (FLONASE) 50 mcg/actuation nasal spray Administer 1 spray into each nostril in the morning. 11.1 mL 0 furosemide (LASIX) 20 mg tablet TAKE 1 TABLET BY MOUTH TWICE DAILY (IN THE MORNING and late afternoon) metFORMIN XR (GLUCOPHAGE XR) 750 mg 24 hr tablet Take 1 tablet (750 mg total) by mouth nightly. metoprolol succinate XL (TOPROL XL) 25 mg 24 hr tablet Take 1 tablet (25 mg total) by mouth in the morning. 30 tablet 0 nitroglycerin (NITROSTAT) 0.[address] 1 tablet (0.4 mg total) under the tongue every 5 (five) minutes as needed for chest pain. PARoxetine (PAXIL) 10 mg tablet Take 1 tablet (10 mg total) by mouth every morning. pioglitazone (ACTOS) 30 mg tablet Take 1 tablet (30 mg total) by mouth in the morning. simethicone (MYLICON) 80 mg chewable tablet Chew 1 tablet (80 mg total) and swallow every 6 (six) hours as needed for flatulence. (Patient not taking: Reported on 11/22/2023) simvastatin (ZOCOR) 40 mg tablet Take 1 tablet (40 mg total) by mouth. ticagrelor (BRILINTA) 90 mg tablet Take 1 tablet (90 mg total) by mouth every 12 (twelve) hours. No Known Allergies Family History Problem Relation Age of Onset Diabetes Mother Stroke Mother Cancer Mother Heart attack Mother Heart attack Father Stroke Father Diabetes Father Cancer Father O2 Device: Nasal cannula PHYSICAL EXAM: General: In bed. Well-developed, well-nourished, no apparent distress. Head: Normocephalic, atraumatic. Eyes: PERRL, conjunctivae normal. Cataracts, lens replacement. Neck: No tracheal deviation, neck supple. Cardiovascular: Regular rate and rhythm. Mild edema, pulses palpable Pulmonary: Clear/diminished to auscultation bilaterally. Oxygen: 2 L NC Abdomen: Soft, non-distended. Neurological: No gross deficits. Moving all extremities. Skin: Warm, old flea bites noted bilaterally on lower extremity Extremities: No cyanosis or clubbing. 1+ peripheral edema. Pulses: 2+ peripheral pulses bilaterally in upper and lower extremities. Microbiology Results Procedure Component Value Units Date/Time Urine culture [[id number]] Collected: 03/08/24 0827 Specimen: Urine Updated: 03/08/24 09 Blood culture [[id number]] Collected: 03/08/24317 Specimen: Blood, Peripheral Draw Updated: 03/08/24324 Blood culture [[id number]] Collected: 03/08/24 0307 Specimen: Blood, Peripheral Draw Updated: 03/08/24323 Patient Active Problem List Diagnosis Chest pain Macrocytic anemia Anxiety disorder Benign essential hypertension Chronic diastolic congestive heart failure (CMS-HCC) Chronic respiratory failure with hypoxia (CMS-HCC) COPD (chronic obstructive pulmonary disease) (CMS-HCC) 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 Dyslipidemia Dyspnea Gastroesophageal reflux disease without esophagitis HTN (hypertension) Major depressive disorder Mixed hyperlipidemia Obstructive sleep apnea syndrome Old myocardial infarction Type 2 diabetes mellitus with hyperglycemia, without long-term current use of insulin [place] Weakness generalized Pleural effusion, left Community acquired pneumonia of left lower lobe of lung Bacteremia due to methicillin resistant Staphylococcus aureus Acute on chronic congestive heart failure, unspecified heart failure type ([facility] CRISTINE (acute kidney injury) [place] Acute coronary syndrome [place] Aortic stenosis Congestive heart failure ([facility] Difficulty walking Dizziness Erectile dysfunction Generalized muscle weakness History of myocardial infarction Morbid (severe) obesity due to excess calories ([facility] Mucopurulent chronic bronchitis ([facility] Other chronic pain Postconcussion syndrome Psychophysiological insomnia Pure hypercholesterolemia Rotator cuff tear arthropathy of left shoulder Rotator cuff tear, non-traumatic, right Solitary pulmonary nodule Spondylosis of lumbosacral region without myelopathy or radiculopathy Tachycardia Urinary retention Leukocytes in urine Iron deficiency anemia secondary to inadequate dietary iron intake Recurrent left pleural effusion Anxiety and depression Weakness Hypomagnesemia Shock ([facility] T12 compression fracture [place]) Hypotension Severe aortic stenosis Acute renal failure (ARF) ([facility] Brian Mandel is a 73 y.o. year-old male transferred from outlying facility after presenting with nausea, vomiting, and diarrhea for one week. Patient found to have a creatinine of 6.49 without electrolyte abnormalities. Admitted to [facility] for higher level of care and management ASSESSMENT Acute kidney injury, creatinine 6.49 (11-1.5 baseline) secondary to nausea vomiting diarrhea x1 week Concern for septic shock, on norepinephrine Recent admission for pneumonia, CRISTINE, and UTI positive for Pseudomonas placed on Levaquin at discharge Trace left pleural effusions and subpleural atelectasis and left lower lobe per CT chest 03/08/2024 Bilateral nonobstructing renal stones per CT abdomen pelvis on 03/08/2024, followed outpatient History of CRISTINE per chart History of recurrent falls with syncope ASCVD remote CABG, recent NSTEMI s/p KARL distal left main-ostial LCX 5/ History of AAA History of megaloblastic anemia per chart COPD on home O2, 2 L nasal cannula Diabetes mellitus type 2 on metformin Essential hypertension Hyperlipidemia T12 compression fracture s/p multiple falls PLAN Supplemental oxygen to maintain SpO2 of 90% or greater Titrate/wean vasopressor to maintain map of 65 or greater Nephrology consult for CRISTINE Urology consult for recurrent UTI, bilateral nonobstructing renal stones Arterial line placement Antibiotic coverage consisting of cefepime and Merrem Zofran p.r.n. Nutrition: Clear liquids Activity: Bedrest DVT prophylaxis: Heparin subQ GI prophylaxis: Pepcid Glycemic control: Euglycemia, as indicated Replace electrolytes per protocol LINES/DRAINS/AIRWAYS: PIV x 2 Right arterial line CODE STATUS: Full DISPOSITION: Coronary intensive care Most recent imaging / lab studies independently reviewed. *Please also note additional orders Ginger Walsh APRN, CNP Acute Care Nurse Practitioner [facility] Please feel free to contact me via Patient Touch. CRITICAL CARE TIME: 45 minutes. Non-contiguous time with attending MD, excluding procedures. APRIL Moody 03/08/24 1419 APRIL Moody 03/08/24 1526 Cosigned by Pavan Beltre MD at 03/08/2024 4:13 PM EST * Piero Dumont Jr., MD - 03/15/2024 9:17 AM EST HISTORY AND PHYSICAL INTERVAL NOTE: Brian Mandel 1950 [id number] H&P updated. The patient was examined and case discussed with hospitalist. Patient now cleared for kyphoplasty vertebral augmentation, biopsy nonunion fracture. We will try to scheduled for this afternoon pending OR availability. Piero Dumont Jr, MD Source Note - APRIL Moody - 03/08/2024 12:48 PM EST Images from the original note were not included. CRITICAL CARE HISTORY & PHYSICAL Name: Brian Mandel Date: 03/08/2024 Length of Stay: 0 day(s) No chief complaint on file. Chief Complaint: Nausea vomiting diarrhea x1 week Acute kidney injury History of Present Illness: Brian Mandel is a 73 y.o. year-old male who presented to an outlying facility [employer] on03/08/2024 with complaints of nausea, vomiting, weakness, diarrhea x1 week. Upon initial lab values, creatinine was noted to be 6.49, potassium 4.0, CO2 15, BUN 70, hemoglobin 8.6, white blood cell count 10.3, alkaline phosphate 152, high sensitivity troponin 22/23, rapid lactate 3.7. CT of abdomenpelvis revealed known nonobstructing bilateral renal stones and no other abnormalities. CT of chestshowed left pleural effusions and subpleural effusions in the left lower lobe, focal area of mild tracheal stenosis near the thoracic outlet. Venous blood gas demonstrated a pH of 7.27, PO2 of 21, [id number] of 28 base of 10, bicarb 15.9, pCO2 33.9. Patient received 1 L of fluid, started on on anorepinephrine infusion, received 2 amps of bicarb and bicarb infusion. Merrem and ceftriaxone weregiven empirically. Patient had a recent hospitalization for UTI positive Pseudomonas discharged on Levaquin. Nephrology was consulted on this patient and the decision was made to transfer him to [facility] for further management and care. He arrived on the unit hemodynamically stable on 0.16 mcg/kg per minute norepinephrine. Patient is alert and oriented x 4. Normal sinus on monitor. Systolic blood pressure of 87/44 map 59. Orders placed with attending physician at the bedside. Of note patient has been treated multiple times for recurrent UTI, falls, and syncope. Patient has a significant history for essential hypertension, Diabetes type 2, chronic back pain scheduled for surgery 02/2024, CAD, obstructive sleep apnea, COPD on home oxygen, TAVR, nonobstructing renal calculi. See chart for further medical history. Past Medical History: Diagnosis Date Acute coronary syndrome ([facility] Anxiety disorder Chronic back pain Chronic obstructive asthma with exacerbation ([facility]) COPD (chronic obstructive pulmonary disease) ([facility]) Diabetes mellitus type 2, controlled ([facility]) Essential hypertension Folate deficiency anemia Heart failure ([facility]) Hypotension 11/22/2023 Megaloblastic anemia VT (myocardial infarction) ([facility]) 06/2023 Muscle weakness (generalized) Myocardial infarct ([facility] Obesity Obstructive sleep apnea SARAH (obstructive sleep apnea) Pancytopenia ([facility] Presence of coronary artery bypass graft stent Shock ([facility]) 10/05/2023 Supplemental oxygen dependent Past Surgical History: Procedure Laterality Date CARDIAC SURGERY X2 Transcutaneous aortic valve replacement/Transfemoral/Carpenter N/A 11/25/2023 Performed by Henrietta Arias MD at [facility] CARDIAC CATH LABS Review of Systems Gastrointestinal: Positive for nausea, vomiting and diarrhea. Musculoskeletal: Positive for back pain. Skin: Positive for rash. Flea bites History obtained from the patient Medications Prior to Admission Medication Sig Dispense Refill Last Dose/Taking acetaminophen (TYLENOL) 325 mg tablet Take 2 tablets (650 mg total) by mouth every 8 (eight) hours as needed for pain. (Patient not taking: Reported on 11/22/2023) albuterol (PROVENTIL,VENTOLIN) 2.5 mg /3 mL (0.083 %) nebulizer solution Inhale 3 mL (2.5 mg total)by nebulization every 6 (six) hours as needed for wheezing. Patient takes it every 2 hours amitriptyline (ELAVIL) 25 mg tablet Take 1 tablet (25 mg total) by mouth in the morning. cyanocobalamin 500 MCG tablet Take 1 tablet (500 mcg total) by mouth. FLUoxetine (PROzac) 20 MG tablet Take 1 tablet (20 mg total) by mouth. fluticasone propionate (FLONASE) 50 mcg/actuation nasal spray Administer 1 spray into each nostril in the morning. 11.1 mL 0 furosemide (LASIX) 20 mg tablet TAKE 1 TABLET BY MOUTH TWICE DAILY (IN THE MORNING and late afternoon) metFORMIN XR (GLUCOPHAGE XR) 750 mg 24 hr tablet Take 1 tablet (750 mg total) by mouth nightly. metoprolol succinate XL (TOPROL XL) 25 mg 24 hr tablet Take 1 tablet (25 mg total) by mouth in the morning. 30 tablet 0 nitroglycerin (NITROSTAT) 0.[address] 1 tablet (0.4 mg total) under the tongue every 5 (five) minutes as needed for chest pain. PARoxetine (PAXIL) 10 mg tablet Take 1 tablet (10 mg total) by mouth every morning. pioglitazone (ACTOS) 30 mg tablet Take 1 tablet (30 mg total) by mouth in the morning. simethicone (MYLICON) 80 mg chewable tablet Chew 1 tablet (80 mg total) and swallow every 6 (six) hours as needed for flatulence. (Patient not taking: Reported on 11/22/2023) simvastatin (ZOCOR) 40 mg tablet Take 1 tablet (40 mg total) by mouth. ticagrelor (BRILINTA) 90 mg tablet Take 1 tablet (90 mg total) by mouth every 12 (twelve) hours. No Known Allergies Family History Problem Relation Age of Onset Diabetes Mother Stroke Mother Cancer Mother Heart attack Mother Heart attack Father Stroke Father Diabetes Father Cancer Father O2 Device: Nasal cannula PHYSICAL EXAM: General: In bed. Well-developed, well-nourished, no apparent distress. Head: Normocephalic, atraumatic. Eyes: PERRL, conjunctivae normal. Cataracts, lens replacement. Neck: No tracheal deviation, neck supple. Cardiovascular: Regular rate and rhythm. Mild edema, pulses palpable Pulmonary: Clear/diminished to auscultation bilaterally. Oxygen: 2 L NC Abdomen: Soft, non-distended. Neurological: No gross deficits. Moving all extremities. Skin: Warm, old flea bites noted bilaterally on lower extremity Extremities: No cyanosis or clubbing. 1+ peripheral edema. Pulses: 2+ peripheral pulses bilaterally in upper and lower extremities. Microbiology Results Procedure Component Value Units Date/Time Urine culture [[id number]] Collected: 03/08/24 08 Specimen: Urine Updated: 03/08/24 09 Blood culture [[id number]] Collected: 03/08/24317 Specimen: Blood, Peripheral Draw Updated: 03/08/24324 Blood culture [[id number]] Collected: 03/08/24 030 Specimen: Blood, Peripheral Draw Updated: 03/08/24323 Patient Active Problem List Diagnosis Chest pain Macrocytic anemia Anxiety disorder Benign essential hypertension Chronic diastolic congestive heart failure (CMS-HCC) Chronic respiratory failure with hypoxia (CMS-HCC) COPD (chronic obstructive pulmonary disease) (CMS-HCC) 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 Dyslipidemia Dyspnea Gastroesophageal reflux disease without esophagitis HTN (hypertension) Major depressive disorder Mixed hyperlipidemia Obstructive sleep apnea syndrome Old myocardial infarction Type 2 diabetes mellitus with hyperglycemia, without long-term current use of insulin ([facility] Weakness generalized Pleural effusion, left Community acquired pneumonia of left lower lobe of lung Bacteremia due to methicillin resistant Staphylococcus aureus Acute on chronic congestive heart failure, unspecified heart failure type ([facility] CRISTINE (acute kidney injury) ([facility] Acute coronary syndrome ([facility] Aortic stenosis Congestive heart failure ([facility] Difficulty walking Dizziness Erectile dysfunction Generalized muscle weakness History of myocardial infarction Morbid (severe) obesity due to excess calories ([facility] Mucopurulent chronic bronchitis ([facility] Other chronic pain Postconcussion syndrome Psychophysiological insomnia Pure hypercholesterolemia Rotator cuff tear arthropathy of left shoulder Rotator cuff tear, non-traumatic, right Solitary pulmonary nodule Spondylosis of lumbosacral region without myelopathy or radiculopathy Tachycardia Urinary retention Leukocytes in urine Iron deficiency anemia secondary to inadequate dietary iron intake Recurrent left pleural effusion Anxiety and depression Weakness Hypomagnesemia Shock ([facility] T12 compression fracture [place]) Hypotension Severe aortic stenosis Acute renal failure (ARF) ([facility] Brian Mandel is a 73 y.o. year-old male transferred from outlying facility after presenting with nausea, vomiting, and diarrhea for one week. Patient found to have a creatinine of 6.49 without electrolyte abnormalities. Admitted to [facility] for higher level of care and management ASSESSMENT Acute kidney injury, creatinine 6.49 (11-1.5 baseline) secondary to nausea vomiting diarrhea x1 week Concern for septic shock, on norepinephrine Recent admission for pneumonia, CRISTINE, and UTI positive for Pseudomonas placed on Levaquin at discharge Trace left pleural effusions and subpleural atelectasis and left lower lobe per CT chest 03/08/2024 Bilateral nonobstructing renal stones per CT abdomen pelvis on 03/08/2024, followed outpatient History of CRISTINE per chart History of recurrent falls with syncope ASCVD remote CABG, recent NSTEMI s/p KARL distal left main-ostial LCX 5/2 History of AAA History of megaloblastic anemia per chart COPD on home O2, 2 L nasal cannula Diabetes mellitus type 2 on metformin Essential hypertension Hyperlipidemia T12 compression fracture s/p multiple falls PLAN Supplemental oxygen to maintain SpO2 of 90% or greater Titrate/wean vasopressor to maintain map of 65 or greater Nephrology consult for CRISTINE Urology consult for recurrent UTI, bilateral nonobstructing renal stones Arterial line placement Antibiotic coverage consisting of cefepime and Merrem Zofran p.r.n. Nutrition: Clear liquids Activity: Bedrest DVT prophylaxis: Heparin subQ GI prophylaxis: Pepcid Glycemic control: Euglycemia, as indicated Replace electrolytes per protocol LINES/DRAINS/AIRWAYS: PIV x 2 Right arterial line CODE STATUS: Full DISPOSITION: Coronary intensive care Most recent imaging / lab studies independently reviewed. *Please also note additional orders Ginger Walsh APRN, CNP Acute Care Nurse Practitioner [facility] Please feel free to contact me via Patient Touch. CRITICAL CARE TIME: 45 minutes. Non-contiguous time with attending MD, excluding procedures. APRIL Moody 03/08/24 1419 APRIL Moody 03/08/24 1526 Cosigned by Pavan Beltre MD at 03/08/2024 4:13 PM EST * APRIL Moody - 03/08/2024 12:48 PM EST Images from the original note were not included. CRITICAL CARE HISTORY & PHYSICAL Name: Brian Mandel Date: 03/08/2024 Length of Stay: 0 day(s) No chief complaint on file. Chief Complaint: Nausea vomiting diarrhea x1 week Acute kidney injury History of Present Illness: Brian Mandel is a 73 y.o. year-old male who presented to an [facility] facility [employer] on03/08/2024 with complaints of nausea, vomiting, weakness, diarrhea x1 week. Upon initial lab values, creatinine was noted to be 6.49, potassium 4.0, CO2 15, BUN 70, hemoglobin 8.6, white blood cell count 10.3, alkaline phosphate 152, high sensitivity troponin 22/23, rapid lactate 3.7. CT of abdomenpelvis revealed known nonobstructing bilateral renal stones and no other abnormalities. CT of chestshowed left pleural effusions and subpleural effusions in the left lower lobe, focal area of mild tracheal stenosis near the thoracic outlet. Venous blood gas demonstrated a pH of 7.27, PO2 of 21, [id number] of 28 base of 10, bicarb 15.9, pCO2 33.9. Patient received 1 L of fluid, started on on anorepinephrine infusion, received 2 amps of bicarb and bicarb infusion. Merrem and ceftriaxone weregiven empirically. Patient had a recent hospitalization for UTI positive Pseudomonas discharged on Levaquin. Nephrology was consulted on this patient and the decision was made to transfer him to [facility] for further management and care. He arrived on the unit hemodynamically stable on 0.16 mcg/kg per minute norepinephrine. Patient is alert and oriented x 4. Normal sinus on monitor. Systolic blood pressure of 87/44 map 59. Orders placed with attending physician at the bedside. Of note patient has been treated multiple times for recurrent UTI, falls, and syncope. Patient has a significant history for essential hypertension, Diabetes type 2, chronic back pain scheduled for surgery 02/2024, CAD, obstructive sleep apnea, COPD on home oxygen, TAVR, nonobstructing renal calculi. See chart for further medical history. Past Medical History: Diagnosis Date Acute coronary syndrome ([facility] Anxiety disorder Chronic back pain Chronic obstructive asthma with exacerbation ([facility] COPD (chronic obstructive pulmonary disease) ([facility] Diabetes mellitus type 2, controlled ([facility] Essential hypertension Folate deficiency anemia Heart failure ([facility]) Hypotension 11/22/2023 Megaloblastic anemia VT (myocardial infarction) ([facility] 06/2023 Muscle weakness (generalized) Myocardial infarct ([facility] Obesity Obstructive sleep apnea SARAH (obstructive sleep apnea) Pancytopenia ([facility] Presence of coronary artery bypass graft stent Shock ([facility]) 10/05/2023 Supplemental oxygen dependent Past Surgical History: Procedure Laterality Date CARDIAC SURGERY X2 Transcutaneous aortic valve replacement/Transfemoral/Carpenter N/A 11/25/2023 Performed by Henrietta Arias MD at [facility] CARDIAC CATH LABS Review of Systems Gastrointestinal: Positive for nausea, vomiting and diarrhea. Musculoskeletal: Positive for back pain. Skin: Positive for rash. Flea bites History obtained from the patient Medications Prior to Admission Medication Sig Dispense Refill Last Dose/Taking acetaminophen (TYLENOL) 325 mg tablet Take 2 tablets (650 mg total) by mouth every 8 (eight) hours as needed for pain. (Patient not taking: Reported on 11/22/2023) albuterol (PROVENTIL,VENTOLIN) 2.5 mg /3 mL (0.083 %) nebulizer solution Inhale 3 mL (2.5 mg total)by nebulization every 6 (six) hours as needed for wheezing. Patient takes it every 2 hours amitriptyline (ELAVIL) 25 mg tablet Take 1 tablet (25 mg total) by mouth in the morning. cyanocobalamin 500 MCG tablet Take 1 tablet (500 mcg total) by mouth. FLUoxetine (PROzac) 20 MG tablet Take 1 tablet (20 mg total) by mouth. fluticasone propionate (FLONASE) 50 mcg/actuation nasal spray Administer 1 spray into each nostril in the morning. 11.1 mL 0 furosemide (LASIX) 20 mg tablet TAKE 1 TABLET BY MOUTH TWICE DAILY (IN THE MORNING and late afternoon) metFORMIN XR (GLUCOPHAGE XR) 750 mg 24 hr tablet Take 1 tablet (750 mg total) by mouth nightly. metoprolol succinate XL (TOPROL XL) 25 mg 24 hr tablet Take 1 tablet (25 mg total) by mouth in the morning. 30 tablet 0 nitroglycerin (NITROSTAT) 0.[address] 1 tablet (0.4 mg total) under the tongue every 5 (five) minutes as needed for chest pain. PARoxetine (PAXIL) 10 mg tablet Take 1 tablet (10 mg total) by mouth every morning. pioglitazone (ACTOS) 30 mg tablet Take 1 tablet (30 mg total) by mouth in the morning. simethicone (MYLICON) 80 mg chewable tablet Chew 1 tablet (80 mg total) and swallow every 6 (six) hours as needed for flatulence. (Patient not taking: Reported on 11/22/2023) simvastatin (ZOCOR) 40 mg tablet Take 1 tablet (40 mg total) by mouth. ticagrelor (BRILINTA) 90 mg tablet Take 1 tablet (90 mg total) by mouth every 12 (twelve) hours. No Known Allergies Family History Problem Relation Age of Onset Diabetes Mother Stroke Mother Cancer Mother Heart attack Mother Heart attack Father Stroke Father Diabetes Father Cancer Father O2 Device: Nasal cannula PHYSICAL EXAM: General: In bed. Well-developed, well-nourished, no apparent distress. Head: Normocephalic, atraumatic. Eyes: PERRL, conjunctivae normal. Cataracts, lens replacement. Neck: No tracheal deviation, neck supple. Cardiovascular: Regular rate and rhythm. Mild edema, pulses palpable Pulmonary: Clear/diminished to auscultation bilaterally. Oxygen: 2 L NC Abdomen: Soft, non-distended. Neurological: No gross deficits. Moving all extremities. Skin: Warm, old flea bites noted bilaterally on lower extremity Extremities: No cyanosis or clubbing. 1+ peripheral edema. Pulses: 2+ peripheral pulses bilaterally in upper and lower extremities. Microbiology Results Procedure Component Value Units Date/Time Urine culture [[id number]] Collected: 03/08/24 0827 Specimen: Urine Updated: 03/08/24 0910 Blood culture [[id number]] Collected: 03/08/24 0318 Specimen: Blood, Peripheral Draw Updated: 03/08/24 032 Blood culture [[id number]] Collected: 03/08/24 0307 Specimen: Blood, Peripheral Draw Updated: 03/08/24 0324 Patient Active Problem List Diagnosis Chest pain Macrocytic anemia Anxiety disorder Benign essential hypertension Chronic diastolic congestive heart failure ([facility] Chronic respiratory failure with hypoxia ([facility] COPD (chronic obstructive pulmonary disease) ([facility] 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 Dyslipidemia Dyspnea Gastroesophageal reflux disease without esophagitis HTN (hypertension) Major depressive disorder Mixed hyperlipidemia Obstructive sleep apnea syndrome Old myocardial infarction Type 2 diabetes mellitus with hyperglycemia, without long-term current use of insulin ([facility] Weakness generalized Pleural effusion, left Community acquired pneumonia of left lower lobe of lung Bacteremia due to methicillin resistant Staphylococcus aureus Acute on chronic congestive heart failure, unspecified heart failure type ([facility] CRISTINE (acute kidney injury) ([facility] Acute coronary syndrome ([facility] Aortic stenosis Congestive heart failure ([facility] Difficulty walking Dizziness Erectile dysfunction Generalized muscle weakness History of myocardial infarction Morbid (severe) obesity due to excess calories ([facility] Mucopurulent chronic bronchitis ([facility] Other chronic pain Postconcussion syndrome Psychophysiological insomnia Pure hypercholesterolemia Rotator cuff tear arthropathy of left shoulder Rotator cuff tear, non-traumatic, right Solitary pulmonary nodule Spondylosis of lumbosacral region without myelopathy or radiculopathy Tachycardia Urinary retention Leukocytes in urine Iron deficiency anemia secondary to inadequate dietary iron intake Recurrent left pleural effusion Anxiety and depression Weakness Hypomagnesemia Shock ([facility]) T12 compression fracture ([facility]) Hypotension Severe aortic stenosis Acute renal failure (ARF) ([facility]) Brian Mandel is a 73 y.o. year-old male transferred from outlying facility after presenting with nausea, vomiting, and diarrhea for one week. Patient found to have a creatinine of 6.49 without electrolyte abnormalities. Admitted to [facility] for higher level of care and management ASSESSMENT Acute kidney injury, creatinine 6.49 (11-1.5 baseline) secondary to nausea vomiting diarrhea x1 week Concern for septic shock, on norepinephrine Recent admission for pneumonia, CRISTINE, and UTI positive for Pseudomonas placed on Levaquin at discharge Trace left pleural effusions and subpleural atelectasis and left lower lobe per CT chest 03/08/2024 Bilateral nonobstructing renal stones per CT abdomen pelvis on 03/08/2024, followed outpatient History of CRISTINE per chart History of recurrent falls with syncope ASCVD remote CABG, recent NSTEMI s/p KARL distal left main-ostial LCX 5/ History of AAA History of megaloblastic anemia per chart COPD on home O2, 2 L nasal cannula Diabetes mellitus type 2 on metformin Essential hypertension Hyperlipidemia T12 compression fracture s/p multiple falls PLAN Supplemental oxygen to maintain SpO2 of 90% or greater Titrate/wean vasopressor to maintain map of 65 or greater Nephrology consult for CRISTINE Urology consult for recurrent UTI, bilateral nonobstructing renal stones Arterial line placement Antibiotic coverage consisting of cefepime and Merrem Zofran p.r.n. Nutrition: Clear liquids Activity: Bedrest DVT prophylaxis: Heparin subQ GI prophylaxis: Pepcid Glycemic control: Euglycemia, as indicated Replace electrolytes per protocol LINES/DRAINS/AIRWAYS: PIV x 2 Right arterial line CODE STATUS: Full DISPOSITION: Coronary intensive care Most recent imaging / lab studies independently reviewed. *Please also note additional orders Ginger Walsh APRN, CNP Acute Care Nurse Practitioner [facility] Please feel free to contact me via Patient Touch. CRITICAL CARE TIME: 45 minutes. Non-contiguous time with attending MD, excluding procedures. APRIL Moody 03/08/24 1419 APRIL Moody 03/08/24 1526 Cosigned by Pavan Beltre MD at 03/08/2024 4:13 PM EST [facility] Consult note* Chico Virgen MD - 03/14/2024 5:46 PM EST Images from the original note were not included. [facility] [address] [place] [address] HISTORY & PHYSICAL / CONSULT NOTE Brian Mandel PCP: NO PCP, NO PCP Date of Admission: 03/08/2024 Date of Consultation: 03/14/2024 5:50 PM Consult for preoperative cardiovascular risk assessment SUBJECTIVE History of Present Illness: Brian Mandel is a 73 y.o. male with history of TAVR 11/2023, CABG,COPD, multiple falls. Admitted to [facility] 03/08/2024 with nausea vomiting and diarrhea. Has been dealing with chronic back pain issues and diagnosed with thoracic compression deformities on recent MRI. Planned kyphoplasty. We are consulted for preoperative cardiovascular risk assessment. Patient is seen examined at bedside. Stated that he is feeling well apart from having back pain issues. Denied any chest pain or shortness of breath or palpitations or dizziness orthopnea or edema. Denied tobacco use or alcohol use or recreational drug use. Vitals reviewed. Labs reviewed. EKG 03/08/2024 reviewed. Chest x-ray 03/10/2024 reviewed. Chest x-ray 03/10/2024 reviewed. At the time patient was seen with resting complained bed. In no acute respiratory distress. Asymptomatic. Previous Medical History: Past Medical History: Diagnosis Date Acute coronary syndrome [place] Anxiety disorder Chronic back pain Chronic obstructive asthma with exacerbation [place] COPD (chronic obstructive pulmonary disease) ([facility]) Diabetes mellitus type 2, controlled ([facility]) Essential hypertension Folate deficiency anemia Heart failure ([facility] Hypotension 11/22/2023 Megaloblastic anemia VT (myocardial infarction) ([facility]) 06/2023 Muscle weakness (generalized) Myocardial infarct ([facility]) Obesity Obstructive sleep apnea SARAH (obstructive sleep apnea) Pancytopenia ([facility]) Presence of coronary artery bypass graft stent Shock ([facility]) 10/05/2023 Supplemental oxygen dependent Previous Surgical History: Past Surgical History: Procedure Laterality Date CARDIAC SURGERY X2 CYSTOSCOPY INSERTION STENT URETER LT Left 03/09/2024 Performed by Henna Beasley MD at [facility] Transcutaneous aortic valve replacement/Transfemoral/Carpenter N/A 11/25/2023 Performed by Henrietta Arias MD at [facility] Allergies: No Known Allergies Hospital Meds: Current Facility-Administered Medications Medication Dose Route Frequency Provider Last Rate Last Admin acetaminophen (TYLENOL) tablet 325 mg 325 mg oral Q6H PRN APRIL Moody 325 mg at 03/11/24 2100 atorvastatin (LIPITOR) tablet 20 mg 20 mg oral Nightly Drew Guzman MD 20 mg at 03/13/24 2111 calcium gluconate IVPB 1000 mg/50 mL (20 mg/mL premix) 1,000 mg intravenous PRN APRIL Moody Stopped at 03/09/24 0105 Or calcium gluconate IVPB 2000 mg/100 mL (20 mg/mL premix) 2,000 mg intravenous PRN APRIL Moody Or calcium gluconate 3,000 mg in sodium chloride 0.9 % 100 mL IVPB 3,000 mg intravenous PRN APRIL Abraham cefEPime (MAXIPIME) 2,000 mg in sodium chloride 0.9 % 100 mL IVPB-MBP 2,000 mg intravenous Q8H Pavan Beltre MD 25 mL/hr at 03/14/24 1455 2,000 mg at 03/14/24 1455 cyanocobalamin tablet 500 mcg 500 mcg oral Daily Drew Guzman MD 500 mcg at 03/14/24 0843 dextrose (GLUTOSE) 40 % gel 15 g 15 g oral PRN APRIL Moody dextrose 50 % in water (D50W) 50% solution 25 mL 25 mL intravenous PRN APRIL Moody furosemide (LASIX) tablet 20 mg 20 mg oral BID AC Drew Guzman MD 20 mg at 03/14/24 1502 glucagon HCL injection 1 mg 1 mg intramuscular PRN APRIL Moody insulin lispro (HumaLOG) injection 2-10 Units 2-10 Units subcutaneous Q4H APRIL Correa 2 Units at 03/13/24 2111 ipratropium-albuteroL (DUONEB) 0.5 mg-3 mg(2.5 mg base)/3 mL nebulizer solution 3 mL 3 mL nebulization Q6H PRN APRIL Moody magnesium sulfate IVPB 2000 mg/50 mL in iso-osmotic water (40 mg/mL premix) 2,000 mg intravenous PRN APRIL Moody 25 mL/hr at 03/14/24 1501 2,000 mg at 03/14/24 1501 Or magnesium sulfate IVPB 4000 mg/100 mL in iso-osmotic water (40 mg/mL premix) 4,000 mg intravenous PRN APRIL Moody Stopped at 03/10/24 0750 melatonin (CIRCADIN) tablet 3 mg 3 mg oral Nightly APRIL Nye 3 mg at 03/13/24 2111 midodrine (PROAMATINE) tablet 5 mg 5 mg oral TID APRIL Moody 5 mg at 03/14/24 1452 ondansetron (PF) (ZOFRAN) injection 4 mg 4 mg intravenous Q6H PRN APRIL Moody oxyCODONE-acetaminophen (PERCOCET) 5-325 mg per tablet 1 tablet 1 tablet oral Q6H PRN Lou Medrano MD 1 tablet at 03/14/24 1452 potassium chloride (K-TAB,KLOR-CON) CR tablet 20-50 mEq 20-50 mEq oral PRN APRIL Moody 20 mEq at 03/09/24 0004 Or potassium chloride (KAYCIEL) 20 mEq/15 mL solution 20-50 mEq 20-50 mEq oral PRN APRIL Moody potassium chloride IVPB 10 mEq/50 mL in water (0.2 mEq/mL premix) 10 mEq intravenous PRN APRIL Abraham Or potassium chloride IVPB 10 mEq/100 mL in water (0.1 mEq/mL premix) 10 mEq intravenous PRN APRIL Moody sennosides-docusate sodium (SENOKOT-S) 8.6-50 mg 2 tablet 2 tablet oral BID PRN APRIL Carias sodium phosphate 20 mmol in sodium chloride 0.9 % 250 mL IVPB 20 mmol intravenous PRN APRIL Moody Or sodium phosphate 20 mmol in sodium chloride 0.9 % 100 mL IVPB 20 mmol intravenous PRN APRIL Moody Or sod phos di, mono-K phos mono (K-PHOS NEUTRAL) 250 mg tablet 2 tablet 2 tablet oral PRN APRIL Moody 2 tablet at 03/12/24 0528 Home Meds: Prior to Admission medications Medication Sig Start Date End Date Taking? Authorizing Provider aspirin 81 mg Take 1 tablet (81 mg total) by mouth in the morning. Yes Not In System Ref Prov cyanocobalamin 500 MCG tablet Take 1 tablet (500 mcg total) by mouth in the morning. Yes Not In System Ref Prov furosemide (LASIX) 20 mg tablet TAKE 1 TABLET BY MOUTH TWICE DAILY (IN THE MORNING and late afternoon) 12/17/23 Yes Not In System Ref Prov lisinopriL (PRINIVIL,ZESTRIL) 2.5 mg tablet Take 1 tablet (2.5 mg total) by mouth in the morning. 03/01/24 Yes Not In System Ref Prov metFORMIN XR (GLUCOPHAGE XR) 750 mg 24 hr tablet Take 1 tablet (750 mg total) by mouth nightly. YesNot In System Ref Prov metoprolol tartrate (LOPRESSOR) 25 mg tablet Take 1 tablet (25 mg total) by mouth in the morning. 02/23/24 Yes Not In System Ref Prov PARoxetine (PAXIL) 10 mg tablet Take 1 tablet (10 mg total) by mouth every morning. Yes Not In System Ref Prov pioglitazone (ACTOS) 30 mg tablet Take 1 tablet (30 mg total) by mouth in the morning. 11/04/23 Yes Not In System Ref Prov simvastatin (ZOCOR) 40 mg tablet Take 1 tablet (40 mg total) by mouth nightly. Yes Not In System Ref Prov ticagrelor (BRILINTA) 90 mg tablet Take 1 tablet (90 mg total) by mouth every 12 (twelve) hours. Yes Not In System Ref Prov nitroglycerin (NITROSTAT) 0.[address] 1 tablet (0.4 mg total) under the tongue every 5 (five) minutes as needed for chest pain. Not In System Ref Prov Social History: TOBACCO: reports that he has never smoked. He has never used smokeless tobacco. ETOH: reports that he does not currently use alcohol. DRUGS: reports no history of drug use. OCCUPATION: Family History: Family History Problem Relation Age of Onset Diabetes Mother Stroke Mother Cancer Mother Heart attack Mother Heart attack Father Stroke Father Diabetes Father Cancer Father Review of Systems: Constitutional: there has been no unanticipated weight loss, no change in energy level, sleep pattern, or activity level. Cardiovascular: See HPI Respiratory: No cough or wheezing, no sputum production, no hematemesis. Gastrointestinal: No abdominal pain, no constipation, no diarrhea, no hematochezia, no melena. Genitourinary: No dysuria, trouble voiding, or hematuria Musculoskeletal: No gait disturbance, + back pain Integumentary: No rash or pruritis Neurological: No headache, focal muscle weakness, focal numbness or tingling. Hematologic/Lymphatic: No abnormal bruising or bleeding, blood clots. Allergic/Immunologic: No nasal congestion or hives OBJECTIVE LAST LABS: CBC: Results from last 7 days Lab Units 03/14/24 0622 03/13/24 0400 03/12/24 0200 WBC X10E9/L 6.3 5.6 5.9 HEMOGLOBIN g/dL 9.1* 7.5* 7.9* HEMATOCRIT % 27.2* 22.0* 23.2* MCV fL 99 98 99 PLATELETS X10E9/L 82* 93* 98* BMP: Results from last 7 days Lab Units 03/14/24 0622 03/13/24 0400 03/12/24 0845 03/12/24 0200 SODIUM mmol/L 140 139 -- 141 POTASSIUM mmol/L 4.8 4.4 -- 4.4 CHLORIDE mmol/L 108 108 -- 110* CO2 mmol/L 26 26 -- 25 BUN mg/dL 10 11 -- 14 CREATININE mg/dL 0.75 0.82 -- 0.86 CALCIUM mg/dL 8.9 8.3* -- 8.3* PHOSPHORUS mg/dL 2.5 2.4 3.1 2.3* MAGNESIUM mg/dL 1.7* 1.7* -- 1.8 PT/INR: Results from last 7 days Lab Units 03/08/24 0245 PROTIME sec 13.6* INR 1.2* APTT: MAG: Results from last 7 days Lab Units 03/14/24 0622 03/13/24 0400 03/12/24 0200 MAGNESIUM mg/dL 1.7* 1.7* 1.8 D Dimer: Troponin I ProBNP Results from last 7 days Lab Units 03/08/24 1332 BNP pg/mL 617* Lipid Panel: Lab Results Component Value Date CHOL 136 (L) 10/05/2023 TRIG 83 10/05/2023 HDL 41 10/05/2023 Liver Panel: No results found for: ALB HgA1C: Lab Results Component Value Date HGBA1C 5.5 09/21/2023 ABG: RADIOLOGY: No results found. PHYSICAL EXAM Admission Weight: Weight: 83.4 kg (183 lb 13.8 oz) I/O last 3 completed shifts: In: 549.9 [P.O.:240; I.V.:112.4; IV Piggyback:197.5] Out: 1924 [Urine:1924] Weight change: -1.2 kg (-2 lb 10.3 oz) Wt Readings from Last 3 Encounters: 03/14/24 86.8 kg (191 lb 5.8 oz) 03/08/24 71.2 kg (157 lb) 01/20/24 85.3 kg (188 lb 1.6 oz) Vitals: Vitals: 03/14/24 1000 03/14/24 1200 03/14/24 1400 03/14/24 1600 BP: 135/65 102/60 100/59 105/59 Pulse: 82 72 77 79 Resp: Temp: 36.8 C (98.3 F) 36.5 C (97.7 F) TempSrc: Axillary Oral SpO2: 92% 97% 98% 98% Weight: Height: Admit Weight Weight: 83.4 kg (183 lb 13.8 oz) Last 3 Weights Last 3 Weight Readings 03/12/24 0500 03/13/24 0400 03/14/24 0326 Weight: 89 kg (196 lb 3.4 oz) 88 kg (194 lb 0.1 oz) 86.8 kg (191 lb 5.8 oz) Body mass index is 37.37 kg/m . INTAKE/OUTPUT I/O last 3 completed shifts: In: 549.9 [P.O.:240; I.V.:112.4; IV Piggyback:197.5] Out: 192 [Urine:192] Intake/Output Summary (Last 24 hours) at 03/14/2024 1750 Last data filed at 03/14/2024 1400 Gross per 24 hour Intake 549.89 ml Output 1700 ml Net -1150.11 ml EKG: No results found. ECHO (Last) Echo congenital limited W/O contrast Result Date: 02/09/2024 Left Ventricle: Normal left ventricular systolic function with a visually estimated EF of 60 - 65%.EF by 2D Simpsons Biplane is 64%. Left ventricle size is normal. Moderately increased wall thickness. Normal wall motion. Diastolic dysfunction present with normal LV EF. Aortic Valve: TAVR noted with no perivalvular leak. Mild stenosis of the aortic valve. AV mean gradient is 11 mmHg. AV area by continuity VTI is 1.7 cm2. Mitral Valve: Moderate annular calcification. Tricuspid Valve: Mild regurgitation. The estimated RVSP is 36 mmHg. No previous studies were available for comparison. Left Ventricle Normal left ventricular systolic function with a visually estimated EF of 60 - 65%. EF by 2D Simpsons Biplane is 64%. Left ventricle size is normal. Moderately increased wall thickness. Normal wall motion. Diastolic dysfunction present with normal LV EF. Right Ventricle Right ventricle size isnormal. Normal systolic function. Left Atrium Left atrial volume index is normal (16-34 mL/m2). Right Atrium Right atrium size is normal. IVC/SVC IVC diameter is less than or equal to 21 mm and decreases greater than 50% during inspiration; therefore the estimated right atrial pressure is normal (~3 mmHg). IVC size is normal. Mitral Valve Moderate annular calcification. Mild regurgitation. Tricuspid Valve Valve structure is normal. Mild regurgitation. The estimated RVSP is 36 mmHg. Aortic ValveTAVR noted with no perivalvular leak. Mild stenosis of the aortic valve. AV mean gradient is 11 mmHg. AV area by continuity VTI is 1.7 cm2. Pulmonic Valve The pulmonic valve visualization is suboptimal but appears to be functioning normally. Physiologically normal regurgitation. No stenosis noted. Ascending Aorta Normal sized aortic root and ascending aorta. Pericardium No pericardial effusion. Study Details Image quality: adequate. TAVR- 23 mm Edward-Jose Cruz No contrast was given. Echo limited W/ contrast Result Date: 11/24/2023 Aortic Valve: There is mild regurgitation. There is very severe stenosis. The calculated aortic valve area is 0.48 cm2. The calculated aortic valve peak gradient is 90.00 mmHg. The calculated aortic valve mean gradient is 58.00 mmHg. Left Ventricle: Left ventricle appears normal in size. Systolic function is normal with an ejection fraction of 55-60%. Pericardium: There is no pericardial effusion. Echo THIERRY W/3D Recon Independant Wkst Result Date: 10/27/2023 Left Ventricle: Systolic function is normal with an ejection fraction of 55-60%. Aortic Valve: The aortic valve is trileaflet. The leaflets are moderately calcified. There is moderate regurgitation. There is severe stenosis. The calculated aortic valve area is 1.10 cm2. The calculated aortic valve peak gradient is 70.00 mmHg. The calculated aortic valve mean gradient is 43.00 mmHg. Tricuspid Valve: There is mild to moderate regurgitation. Echo limited W/O contrast Result Date: 10/21/2023 Left Ventricle: Systolic function is normal with an ejection fraction of 60-65%. The quantitative EF by 2D Hutchinson biplane is 63%. No obvious regional wall motion abnormalities. Pericardium: There isno pericardial effusion. Echo limited W/ contrast Result Date: 09/08/2023 Left Ventricle: Left ventricle appears normal in size. Wall thickness is normal. Systolic function is normal with an ejection fraction of 55-60%. See wall score diagram for wall motion abnormalities.Pericardium: There is pleural effusion. The study had technical difficulties. The study was difficult due to patient's body habitus and poor acoustic windows. Echo complete W/ contrast Result Date: 07/27/2023 Left Ventricle: Left ventricle appears normal in size. Systolic function is normal with an ejectionfraction of 55-60%. Right Ventricle: Systolic function is mildly reduced. Abnormal tricuspid annular plane systolic excursion. Aortic Valve: There is moderate to severe regurgitation. There is moderate to severe stenosis. The calculated aortic valve area is 0.59 cm2. The calculated aortic valve peak gradient is 68.00 mmHg. The calculated aortic valve mean gradient is 36.00 mmHg. Tricuspid Valve: There is mild to moderate regurgitation. There is no evidence of tricuspid valve stenosis. General appearance: Alert oriented and cooperative, in no acute distress Skin: Warm and dry to touch Head: Normocephalic, without obvious abnormality, atraumatic Eyes: Conjunctivae unremarkable, EOMs intact, sclera non icteric Neck: No JVD, no carotid bruit, neck supple, trachea midline Lungs: Clear to ausculation bilaterally, no use of accessory muscles. Heart:: RRR with normal S1 and S2 , no murmurs and no gallops. Abdomen: Soft, non-tender, bowel sounds normal Extremities: No edema Neurologic: Oriented to time, person and place, affect appropriate, no focal/major motor or sensorydefects noted Psychiatric: Appropriate mood, memory and judgment ASSESSMENT Preoperative cardiovascular risk assessment - planned kyphoplasty procedure Severe s/p TAVR 11/2023 Normal EF TTE 11/2023 Hx of CABG Hypertension Hyperlipidemia Type 2 diabetes mellitus COPD Chronic anemia Recurrent falls PLAN -patient at moderate risk for perioperative cardiovascular complications. Risk non prohibitive undergoing low risk procedure. -recommend resuming antiplatelet therapy when cleared by Orthopedics surgery team. -will follow-up as needed postoperatively. -please call with any cardiac questions. CHICO VIRGEN MD This note was completed using a voice taffy puller system. Every effort was made to ensure accuracy. However, inadvertent computerized taffy puller errors may be present. * Piero Dumont Jr., MD - 03/14/2024 4:41 PM EST Consultation Note Referring physician: Drew Guzman MD Care team: Patient Care Team: No Pcp No Pcp as PCP - General (Family Medicine) 03/14/2024 Patient Name: Brian Mandel : 1950 Reason for Consultation: Spine pain HPI: Brian Mandel is a 73 y.o. male who evaluated 6 floor [facility] having required ICU admission for CRISTINE and vomiting, diarrhea. Orthopedically I am asked to address his T12 fracture. 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 Imaging reports 10-19 identified a new T12 superior endplate compression fracture. Multiple medical problems including coronary artery disease, aortic stenosis, CHF required med management. He was transferred to [facility] for management. He was seen by Neurosurgery on 11/29/2023 who prescribed TLSO and with cardiac issues non operative care was continued. The brace is poorly tolerated he describes continued severe mechanical symptoms. No bowel or bladder sphincter incontinence. No right or left upper extremity symptoms. Med management currently includes infectious disease, internal medicine, Urology. He is on cefepime. Denies rheumatoid arthritis, lupus, gout. Previous orthopedic problems rotator cuff and chronic lumbar stenosis symptoms Past Medical History: Diagnosis Date Acute coronary syndrome [place] Anxiety disorder Chronic back pain Chronic obstructive asthma with exacerbation [place]) COPD (chronic obstructive pulmonary disease) [place]) Diabetes mellitus type 2, controlled ([facility]) Essential hypertension Folate deficiency anemia Heart failure ([facility]) Hypotension 11/22/2023 Megaloblastic anemia VT (myocardial infarction) ([facility]) 06/2023 Muscle weakness (generalized) Myocardial infarct ([facility]) Obesity Obstructive sleep apnea SARAH (obstructive sleep apnea) Pancytopenia ([facility]) Presence of coronary artery bypass graft stent Shock ([facility]) 10/05/2023 Supplemental oxygen dependent Past Surgical History: Procedure Laterality Date CARDIAC SURGERY X2 CYSTOSCOPY INSERTION STENT URETER LT Left 03/09/2024 Performed by Henna Beasley MD at [facility] Transcutaneous aortic valve replacement/Transfemoral/Carpenter N/A 11/25/2023 Performed by Henrietta Arias MD at [facility] Patient has no known allergies. Prior to Admission medications Medication Sig Start Date End Date Taking? Authorizing Provider aspirin 81 mg Take 1 tablet (81 mg total) by mouth in the morning. Yes Not In System Ref Prov cyanocobalamin 500 MCG tablet Take 1 tablet (500 mcg total) by mouth in the morning. Yes Not In System Ref Prov furosemide (LASIX) 20 mg tablet TAKE 1 TABLET BY MOUTH TWICE DAILY (IN THE MORNING and late afternoon) 12/17/23 Yes Not In System Ref Prov lisinopriL (PRINIVIL,ZESTRIL) 2.5 mg tablet Take 1 tablet (2.5 mg total) by mouth in the morning. 03/01/24 Yes Not In System Ref Prov metFORMIN XR (GLUCOPHAGE XR) 750 mg 24 hr tablet Take 1 tablet (750 mg total) by mouth nightly. YesNot In System Ref Prov metoprolol tartrate (LOPRESSOR) 25 mg tablet Take 1 tablet (25 mg total) by mouth in the morning. 02/23/24 Yes Not In System Ref Prov PARoxetine (PAXIL) 10 mg tablet Take 1 tablet (10 mg total) by mouth every morning. Yes Not In System Ref Prov pioglitazone (ACTOS) 30 mg tablet Take 1 tablet (30 mg total) by mouth in the morning. 11/04/23 Yes Not In System Ref Prov simvastatin (ZOCOR) 40 mg tablet Take 1 tablet (40 mg total) by mouth nightly. Yes Not In System Ref Prov ticagrelor (BRILINTA) 90 mg tablet Take 1 tablet (90 mg total) by mouth every 12 (twelve) hours. Yes Not In System Ref Prov nitroglycerin (NITROSTAT) 0.[address] 1 tablet (0.4 mg total) under the tongue every 5 (five) minutes as needed for chest pain. Not In System Ref Prov reports that he has never smoked. He has never used smokeless tobacco. He reports that he does not currently use alcohol. He reports that he does not use drugs. Family History Problem Relation Age of Onset Diabetes Mother Stroke Mother Cancer Mother Heart attack Mother Heart attack Father Stroke Father Diabetes Father Cancer Father Review of Systems: 10 point review of systems as mentioned above otherwise negative Exam: BP 105/59 Pulse 79 Temp 36.8 C (98.3 F) (Axillary) Resp 15 Ht 152.4 cm (5') Wt 86.8 kg (191 lb 5.8 oz) SpO2 98% BMI 37.37 kg/m Intake/Output Summary (Last 24 hours) at 03/14/2024 1641 Last data filed at 03/14/2024 1400 Gross per 24 hour Intake 549.89 ml Output 1700 ml Net -1150.11 ml General appearance:alert, and orientated HEENT: atraumatic normocephalic Lungs: bilaterally clear to auscultation no rhonchi CV: Regular rate and rhythm no murmur Abd: soft nontender normal bowel sounds EXTR: Right and left upper extremity unremarkable. Shoulder, elbow, wrist, hand without edema, ecchymosis, crepitus, pain with active range. Right left lower extremity also satisfactory. Hip, knee, ankle, foot without edema, ecchymosis, crepitus, pain with active assisted range. Spine examination shows tenderness on palpation of visit T12 fracture site. Range of motion deferred. No evidence of lateralizing radiculopathy myopathy motor sensory and reflex C5 through S1. Decreased lordosis. Imaging reviewed. 1- CT of the chest, abdomen, pelvis reviewed for bone windows. Show thoracic Schmorl's nodes. [id number] fracture nonunion with fracture cleft still identified in the anterior column. Partial anterior thoracic fusion T12-T11. Callus formation. Nonunion. Past imaging includes 12/16/2023 MRI lumbar spine T12 compression. 11/21/2023 CT cervical, thoracic, lumbar spine, brain T12 fracture 50% compression decrease kyphosis. 10-19 imaging acute T12 fracture not seen on 10/04/2023 CT chest. Skin: intact Neurovascular: Satisfactory Labs: Recent Results (from the past 48 hours) Bedside Glucose *Place/Obtain serum glucose if >500(>600 [facility]) per glucometer. Collection Time: 03/12/24 8:05 PM Result Value Ref Range Bedside glucose 130 (H) 65 - 99 mg/dL Bedside Glucose *Place/Obtain serum glucose if >500(>600 [facility]H) per glucometer. Collection Time: 03/12/24 11:05 PM Result Value Ref Range Bedside glucose 105 (H) 65 - 99 mg/dL Basic Metabolic Panel Collection Time: 03/13/24 4:00 AM Result Value Ref Range Sodium 139 134 - 146 mmol/L Potassium, Bld 4.4 3.5 - 5.0 mmol/L Chloride 108 98 - 109 mmol/L CO2 26 22 - 32 mmol/L Anion gap 5 5 - 15 mmol/L BUN 11 5 - 27 mg/dL Creatinine 0.82 0.60 - 1.30 mg/dL Glucose 92 65 - 99 mg/dL Calcium 8.3 (L) 8.5 - 10.5 mg/dL eGFR (CKD-EPI)non-race dependent >90 >59 ml/min/1.73sq.m Phosphorus Collection Time: 03/13/24 4:00 AM Result Value Ref Range Phosphorus 2.4 2.4 - 4.9 mg/dL Magnesium Collection Time: 03/13/24 4:00 AM Result Value Ref Range Magnesium 1.7 (L) 1.8 - 2.6 mg/dL CBC auto differential Collection Time: 03/13/24 4:00 AM Result Value Ref Range White Blood Cells 5.6 4.0 - 11.0 X10E9/L RBC count 2.25 (L) 4.10 - 5.70 X10E12/L Hemoglobin 7.5 (L) 13.0 - 17.0 g/dL Hematocrit 22.0 (L) 39 - 49 % MCV 98 80 - 100 fL MCH 33.3 27 - 34 pg MCHC 34.0 32 - 36 g/dL RDW 19.5 (H) 11.5 - 15.0 % Platelets 93 (L) 150 - 450 X10E9/L MPV 9.6 7 - 12 fL % neutrophils 61.9 % % lymphocytes 24.5 % % monocytes 10.7 % % eosinophils 2.2 % % Basophils 0.7 % Neutrophils Absolute (A) 3.5 1.5 - 6.6 X10E9/L Lymphocytes Absolute 1.4 1.0 - 3.5 X10E9/L Monocytes Absolute 0.6 0 - 0.9 X10E9/L Eosinophils Absolute 0.1 0.0 - 0.4 X10E9/L Basophils Absolute 0.0 0.0 - 0.2 X10E9/L Bedside Glucose *Place/Obtain serum glucose if >500(>600 MRH) per glucometer. Collection Time: 03/13/24 11:46 AM Result Value Ref Range Bedside glucose 123 (H) 65 - 99 mg/dL Bedside Glucose *Place/Obtain serum glucose if >500(>600 MRH) per glucometer. Collection Time: 03/13/24 5:13 PM Result Value Ref Range Bedside glucose 114 (H) 65 - 99 mg/dL Bedside Glucose *Place/Obtain serum glucose if >500(>600 MRH) per glucometer. Collection Time: 03/13/24 8:03 PM Result Value Ref Range Bedside glucose 172 (H) 65 - 99 mg/dL Bedside Glucose *Place/Obtain serum glucose if >500(>600 MRH) per glucometer. Collection Time: 03/13/24 11:10 PM Result Value Ref Range Bedside glucose 104 (H) 65 - 99 mg/dL Bedside Glucose *Place/Obtain serum glucose if >500(>600 MRH) per glucometer. Collection Time: 03/14/24 3:40 AM Result Value Ref Range Bedside glucose 92 65 - 99 mg/dL Basic Metabolic Panel Collection Time: 03/14/24 6:22 AM Result Value Ref Range Sodium 140 134 - 146 mmol/L Potassium, Bld 4.8 3.5 - 5.0 mmol/L Chloride 108 98 - 109 mmol/L CO2 26 22 - 32 mmol/L Anion gap 6 5 - 15 mmol/L BUN 10 5 - 27 mg/dL Creatinine 0.75 0.60 - 1.30 mg/dL Glucose 81 65 - 99 mg/dL Calcium 8.9 8.5 - 10.5 mg/dL eGFR (CKD-EPI)non-race dependent >90 >59 ml/min/1.73sq.m Phosphorus Collection Time: 03/14/24 6:22 AM Result Value Ref Range Phosphorus 2.5 2.4 - 4.9 mg/dL Magnesium Collection Time: 03/14/24 6:22 AM Result Value Ref Range Magnesium 1.7 (L) 1.8 - 2.6 mg/dL CBC auto differential Collection Time: 03/14/24 6:22 AM Result Value Ref Range White Blood Cells 6.3 4.0 - 11.0 X10E9/L RBC count 2.74 (L) 4.10 - 5.70 X10E12/L Hemoglobin 9.1 (L) 13.0 - 17.0 g/dL Hematocrit 27.2 (L) 39 - 49 % MCV 99 80 - 100 fL MCH 33.3 27 - 34 pg MCHC 33.5 32 - 36 g/dL RDW 19.8 (H) 11.5 - 15.0 % Platelets 82 (L) 150 - 450 X10E9/L MPV 11.0 7 - 12 fL % neutrophils 61.3 % % lymphocytes 24.0 % % monocytes 11.7 % % eosinophils 2.3 % % Basophils 0.7 % Neutrophils Absolute (A) 3.9 1.5 - 6.6 X10E9/L Lymphocytes Absolute 1.5 1.0 - 3.5 X10E9/L Monocytes Absolute 0.7 0 - 0.9 X10E9/L Eosinophils Absolute 0.1 0.0 - 0.4 X10E9/L Basophils Absolute 0.0 0.0 - 0.2 X10E9/L Bedside Glucose *Place/Obtain serum glucose if >500(>600 MRH) per glucometer. Collection Time: 03/14/24 7:50 AM Result Value Ref Range Bedside glucose 94 65 - 99 mg/dL Vitamin B12 Collection Time: 03/14/24 9:18 AM Result Value Ref Range Vitamin B-12 420 180 - 914 pg/mL Folate Collection Time: 03/14/24 9:18 AM Result Value Ref Range Folate 17.1 >5.8 ng/mL Iron and TIBC Collection Time: 03/14/24 9:18 AM Result Value Ref Range Iron 94 50 - 212 ug/dL Tibc-calc only do not order 213 (L) 250 - 425 ug/dL Iron Saturation 44 20 - 50 % SATURATION Bedside Glucose *Place/Obtain serum glucose if >500(>600 MRH) per glucometer. Collection Time: 03/14/24 12:45 PM Result Value Ref Range Bedside glucose 118 (H) 65 - 99 mg/dL Bedside Glucose *Place/Obtain serum glucose if >500(>600 MRH) per glucometer. Collection Time: 03/14/24 4:02 PM Result Value Ref Range Bedside glucose 121 (H) 65 - 99 mg/dL Principal Problem: Acute renal failure (ARF) ([facility] Active Problems: Chronic diastolic congestive heart failure (CMS-HCC) 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 Major depressive disorder History of myocardial infarction Spondylosis of lumbosacral region without myelopathy or radiculopathy Gross hematuria Staghorn calculus Pathological fracture of thoracic vertebra with delayed healing Intractable back pain Assessment and Plan: Assessment: Nonunion pathological osteoporotic T 12 compression fracture with intractable pain History of coronary artery disease with stent, history of VT Staghorn calculus, gross hematuria Osteoporosis rule out vitamin-D deficiency Plan: Treatment options reviewed. He has completed extensive non operative and palliative care with medication, TLSO, physical therapy, and has a T12 compression fracture nonunion. I discussed surgery. Kyphoplasty vertebral augmentation, biopsy would be beneficial to decrease pain, decrease kyphotic deformity, eliminate the need for a spine orthosis, pain tissue diagnosis. Risks and benefits reviewed. He is interested in proceeding. I will be glad to scheduled for the above with cardiac clearance, Infectious Disease clearance. Vitamin-D 25 hydroxy Pain control. Has been on Percocet b.i.d. Mechanical DVT prophylaxis Thank you very much for the consultation. Will continue to follow him with you. Electronically signed by: Piero Dumont Jr, MD, 03/14/2024 4:41 PM * Harsha Clement MD - 03/12/2024 10:57 AM ESTAssociated Order(s): IP CONSULT TO INFECTIOUS DISEASES Images from the original note were not included. Division of Infectious Diseases - Initial Consult Note [facility] - Academic Team 1 During Business Hours: Please page or use Cinegif for communication. After Hours: Please call for our answering service. Patient name: Brian Mandel Patient Today's Date and Time: 03/12/2024, 10:57 AM Admission Date: 03/08/2024 Primary Care Physician: NO PCP, NO PCP Impression and Recommendations: Left-sided staghorn nephrolithiasis with partial obstruction. Status post cystoscopy and left ureteral stent placement on 03/09/2024. Urine and blood cultures are no growth on this admission. Previously in July 2023, the patient had blood cultures that revealed methicillin-resistant Staphylococcus aureus. In the past, the patient has had Dorothea on urine culture and has reportedly had Pseudomonas aeruginosa as well. Receiving cefepime 1 g IV every 12 hours, dose adjusted for the patient's renal insufficiency.. Acute kidney injury. This is attributed to acute tubular necrosis versus prerenal fluctuations in the setting of sepsis and shock. Renal function has recovered. Maintain adequate hydration and monitor renal markers to ensure stability. Sepsis with septic shock. Improved and currently off pressors. Phimosis and panurethral stricture. Status post cystoscopy and dilatation on 03/09/2024. Hypotension. Improved and no longer requiring vasopressors. Subjective Reason for consultation: The patient is seen for complex antimicrobial therapy counseling and treatment. Chief complaint: Left-sided staghorn nephrolithiasis with partial obstruction. History of Present Illness We appreciate the opportunity to consult on Brian Mandel, a 73 y.o.-year-old male who was initially admitted on 03/08/2024. The patient is a 73-year-old male with recurrent UTIs, presenting with syncope, nausea, vomiting, diarrhea, and generalized weakness for one week. We followed the patient in November 2023 for left staghorn nephrolithiasis that was nonobstructive at that time. The patient describes three episodes of syncope over the past week, including one today while sitting in his wheelchair. These episodes were unwitnessed as the patient lives alone. He denies falls ortrauma associated with the syncope. The patient reports nausea, vomiting, and diarrhea that began one week ago, with associated weakness. He denies any flank pain beyond his baseline chronic back pain and reports normal urination. He was initially evaluated at an outside facility on 03/08/2024, where he was noted to be hypotensive with a systolic blood pressure of 87/44 mmHg and a MAP of [address] imaging revealed bilateral nonobstructing renal stones, including a left-sided staghorn calculus. A left-sided partial obstruction with perinephric stranding was noted. He was transferred to [facility] for further management. Since admission, the patient has undergone cystoscopy and left ureteral stent placement, which resolved the obstruction. Past Medical History: Past Medical History: Diagnosis Date Acute coronary syndrome [place] Anxiety disorder Chronic back pain Chronic obstructive asthma with exacerbation [place]) COPD (chronic obstructive pulmonary disease) [place]) Diabetes mellitus type 2, controlled ([facility]) Essential hypertension Folate deficiency anemia Heart failure ([facility]) Hypotension 11/22/2023 Megaloblastic anemia VT (myocardial infarction) ([facility]) 06/2023 Muscle weakness (generalized) Myocardial infarct ([facility]) Obesity Obstructive sleep apnea SARAH (obstructive sleep apnea) Pancytopenia ([facility]) Presence of coronary artery bypass graft stent Shock ([facility]) 10/05/2023 Supplemental oxygen dependent Past Surgical History: Past Surgical History: Procedure Laterality Date CARDIAC SURGERY X2 CYSTOSCOPY INSERTION STENT URETER LT Left 03/09/2024 Performed by Henna Beasley MD at [facility] Transcutaneous aortic valve replacement/Transfemoral/Carpenter N/A 11/25/2023 Performed by Henrietta Arias MD at [facility] CARDIAC CATH LABS Medications: cefepime (MAXIPIME) IV, 1,000 mg, intravenous, Q12H heparin (porcine), 5,000 Units, subcutaneous, Q8H LYNN insulin lispro, 2-10 Units, subcutaneous, Q4H melatonin, 3 mg, oral, Nightly midodrine, 5 mg, oral, TID Social History: Social History Socioeconomic History Marital status: Tobacco Use Smoking status: Never Smokeless tobacco: Never Vaping Use Vaping status: Never Used Substance and Sexual Activity Alcohol use: Not Currently Comment: last drink 2003 Drug use: Never Sexual activity: Defer Social Drivers of Health Financial Resource Strain: Low Risk (07/23/2023) Overall Financial Resource Strain (CARDIA) Difficulty of Paying Living Expenses: Not hard at all Food Insecurity: No Food Insecurity (03/09/2024) Hunger Screening Food Insecurity - Worry: Never True Food Insecurity - Inability: Never True Transportation Needs: No Transportation Needs (03/08/2024) PRAPARE - Transportation Lack of Transportation (Medical): No Lack of Transportation (Non-Medical): No Physical Activity: Insufficiently Active (07/23/2023) Exercise Vital Sign Days of Exercise per Week: 2 days Minutes of Exercise per Session: 10 min Stress: Stress Concern Present (07/23/2023) [employer] - Occupational Stress Questionnaire Feeling of Stress : Very much Social Connections: Socially Isolated (07/23/2023) Social Connection and Isolation Panel [NHANES] Frequency of Communication with Friends and Family: Three times a week Frequency of Social Gatherings with Friends and Family: Three times a week Attends Confucianist Services: Never Active Member of Clubs or Organizations: No Attends Club or Organization Meetings: Never Marital Status: Interpersonal Safety: Not At Risk (03/08/2024) Humiliation, Afraid, Rape, and Kick questionnaire Fear of Current or Ex-Partner: No Emotionally Abused: No Physically Abused: No Sexually Abused: No Housing Instability: Low Risk (03/08/2024) Housing Instability Housing Instability: No Family History: Family History Problem Relation Age of Onset Diabetes Mother Stroke Mother Cancer Mother Heart attack Mother Heart attack Father Stroke Father Diabetes Father Cancer Father Immunization History: Immunization History Administered Date(s) Administered COVID-19, mRNA, LNP-S, PF, 30mcg/0.3mL Dose 04/16/2020, 05/07/2020, 05/28/2020 Influenza High Dose Preservative Free IM 01/26/2019 Influenza, High-dose, Quadrivalent 11/21/2020 Influenza, Im Trivalent Preservative 12/11/2020 Influenza, Unspecified 12/20/2016 Pneumococcal Conjugate 13-Valent 02/27/2020 Pneumococcal Polysaccharide 04/09/2021 Tuberculin Skin Test; Unspecified Formulation 09/21/2018 Allergies: No Known Allergies Review of Systems: General: Reports weakness, fatigue, and syncope. Denies fever or night sweats. Skin: No rashes or lesions. HEENT: Denies headache, vision changes, or sore throat. Respiratory: Denies shortness of breath or cough. On 3 L oxygen at baseline. Cardiovascular: Denies chest pain or palpitations. Reports syncope episodes. Gastrointestinal: Reports nausea, vomiting, and diarrhea for one week. Denies abdominal pain. Genitourinary: Denies dysuria, hematuria, or urgency. Reports normal urination. Neurological: Denies dizziness, focal weakness, or numbness beyond episodes of syncope. Musculoskeletal: Denies new joint or muscle pain. Chronic back pain due to bulging discs. Objective Physical Examination: BP 117/43 Pulse 65 Temp 36.7 C (98 F) (Oral) Resp 12 Ht 152.4 cm (5') Wt 89 kg (196 lb 3.4 oz) SpO2 95% BMI 38.32 kg/m Temperature Range: Temp: 36.7 C (98 F) Temp Av.8 C (98.2 F) Min: 36.7 C (98 F) Max: 36.9 C (98.4 F) General: Alert and oriented x3. Appears fatigued but in no acute distress. Skin: No rashes, pallor, or diaphoresis. HEENT: Normocephalic and atraumatic. No scleral icterus or conjunctival injection. Respiratory: Breath sounds clear bilaterally. No wheezing, rales, or rhonchi. Cardiovascular: Regular rate and rhythm. No murmurs, rubs, or gallops. Peripheral pulses present bilaterally. Abdomen: Soft, non-tender, non-distended. No palpable masses or CVA tenderness. Genitourinary: Call catheter in place. No erythema or discharge at the urethral meatus. Musculoskeletal: No deformities or swelling. Reports chronic back pain. Neurological: Alert and oriented. No focal deficits noted. Laboratory data: I have independently reviewed the following labs: Results from last 7 days Lab Units 03/12/24 0200 03/12/24 0001 03/11/24 0330 03/10/24 1710 03/10/24 0215 WBC X10E9/L 5.9 5.9 5.6 -- 7.2 HEMOGLOBIN g/dL 7.9* 7.5* 7.7* < > 7.3* HEMATOCRIT % 23.2* 22.4* 22.7* < > 21.6* MCV fL 99 99 99 -- 101* PLATELETS X10E9/L 98* 95* 101* -- 137* NEUTROS ABS X10E9/L 3.7 -- 3.7 -- 4.6 LYMPHS ABS AUTO X10E9/L 1.4 -- 1.2 -- 1.6 MONOS ABS AUTO X10E9/L 0.6 -- 0.6 -- 0.7 EOS ABS AUTO X10E9/L 0.1 -- 0.1 -- 0.2 BASOS ABS AUTO X10E9/L 0.0 -- 0.0 -- 0.1 < > = values in this interval not displayed. Results from last 7 days Lab Units 03/12/24 0847 03/12/24 0310 03/12/24 0200 03/11/24 0748 03/11/24 0330 03/10/24 0835 03/10/24 0215 03/09/24 0348 03/09/24 0345 03/08/24 1758 03/08/24 1332 SODIUM mmol/L -- -- 141 -- 141 -- 140 -- 140 -- 139 POTASSIUM mmol/L -- -- 4.4 -- 4.1 -- 4.1 -- 3.9 < > 3.6 CHLORIDE mmol/L -- -- 110* -- 110* -- 108 -- 107 -- 104 CO2 mmol/L -- -- 25 -- 25 -- 24 -- 21* -- 20* BUN mg/dL -- -- 14 -- 21 -- 36* -- 53* -- 67* CREATININE mg/dL -- -- 0.86 -- 1.15 -- 1.95* -- 3.89* -- 5.53* BEDSIDE GLUCOSE mg/dL 95 86 -- < > -- < > -- < > -- < > -- GLUCOSE mg/dL -- -- 91 -- 114* -- 117* -- 119* -- 168* CALCIUM mg/dL -- -- 8.3* -- 7.8* -- 8.4* -- 8.3* -- 7.8* ALBUMIN g/dL -- -- -- -- -- -- 2.8* -- 2.9* -- 3.2 ALK PHOS U/L -- -- -- -- -- -- 120 -- 126 -- 136* ALT U/L -- -- -- -- -- -- 9 -- 9 -- 11 AST U/L -- -- -- -- -- -- 14 -- 14 -- 14 < > = values in this interval not displayed. Results from last 7 days Lab Units 03/08/24 1332 PROCALCITONIN ng/mL 0.26* Results from last 7 days Lab Units 03/08/24 0828 03/08/24 0600 COLOR -- YELLOW TURBIDITY -- CLOUDY* SPECIFIC GRAVITY -- 1.025 SPECIFIC GRAVITY ENMANUEL 1.025 -- NITRITE -- Negative PH URINE -- 5.5 LEUKOCYTE ESTERASE -- SMALL* LEUKOCYTE ESTERASE ENMANUEL Small* -- PROTEIN mg/dL -- 30* KETONES (URINE) mg/dL -- Negative UROBILINOGEN eu/dL -- 0.2 UROBILINOGEN ENMANUEL eu/dL 0.2 -- BLDHGB -- SMALL* RBC UA /hpf -- 0 WBC UA /hpf -- 35* Imaging Studies: I have personally reviewed the chest X-ray, and my interpretation is as follows: Diffuse left hazy and strandy perihilar airspace disease can relate to pulmonary edema although infectious or inflammatory process is difficult to exclude. Trace bilateral pleural effusions. Cultures: Microbiology Results Procedure Component Value Units Date/Time Mrsa Pcr nasal swab [[id number]] Collected: 03/08/24 1345 Specimen: Nasal Updated: 03/08/24 1554 Mrsa PCR Negative Urine culture [[id number]] Collected: 03/08/24 0600 Specimen: Urine, Clean Catch Midstream Updated: 03/09/24 0803 Culture 50-100,000 ORGANISMS/ML NORMAL UROGENITAL CLARY Blood culture [[id number]] Collected: 03/08/24 0318 Specimen: Blood Updated: 03/12/24 1048 Culture NO GROWTH 4 DAYS Blood culture [[id number]] Collected: 03/08/24 0307 Specimen: Blood Updated: 03/12/24 1048 Culture NO GROWTH 4 DAYS It is not necessary to call with new culture results. Thank you for allowing us to participate in the care of this patient. Please call with questions. Harsha Clement MD, MPH, FACP, FIDSA From 7AM-7PM: Please page or use Cinegif for communication. From 7PM-7AM: Please call for our answering service. * EMMA Suarez - 03/08/2024 7:19 PM ESTAssociated Order(s): IP CONSULT TO UROLOGY Urology Consultation Patient: Brian Mandel Date of : 1950 ATTENDING: Dr. Beasley CHIEF COMPLAINT: Renal stones HISTORY OF PRESENT ILLNESS: The patient is a 73 y.o. male who presents with renal stones. Patient presents with a one-week history of nausea vomiting diarrhea and weakness. He was found to be in acute kidney failure with creatinine of 6.49. CT of the abdomen and pelvis was performed revealing bilateral renal stones, large staghorn on the left. Patient denies any flank or back pain other his chronic back pain. He has been urinating well. PVR at the time of my visit was 156 mL. Patient was seen by the urology service while he was inpatient in November for CT finding of the 1.5cm left partial staghorn stone. He does have a remote history of kidney stones that passed spontaneously and has never had kidney stone surgery. Plans were for follow up with Urology in [place] to discuss stone treatment. Patient did not follow-up. Patient's old records, notes and chart reviewed and summarized above. Past Medical History: Past Medical History: Diagnosis Date Acute coronary syndrome [place] Anxiety disorder Chronic back pain Chronic obstructive asthma with exacerbation [place]) COPD (chronic obstructive pulmonary disease) [place]) Diabetes mellitus type 2, controlled ([facility] Essential hypertension Folate deficiency anemia Heart failure ([facility]) Hypotension 11/22/2023 Megaloblastic anemia VT (myocardial infarction) [place]) 06/2023 Muscle weakness (generalized) Myocardial infarct ([facility] Obesity Obstructive sleep apnea SARAH (obstructive sleep apnea) Pancytopenia ([facility]) Presence of coronary artery bypass graft stent Shock ([facility]) 10/05/2023 Supplemental oxygen dependent Past Surgical History: Past Surgical History: Procedure Laterality Date CARDIAC SURGERY X2 Transcutaneous aortic valve replacement/Transfemoral/Carpenter N/A 11/25/2023 Performed by Henrietta Arias MD at [facility] C[facility] CATH [facility] Previous surgery: None Medications: Scheduled Meds: [START ON 03/09/2024] cefepime (MAXIPIME) IV, 1,000 mg, intravenous, Q24H [START ON 03/09/2024] heparin (porcine), 5,000 Units, subcutaneous, Q8H LYNN insulin lispro, 2-10 Units, subcutaneous, Q4H [START ON 03/09/2024] meropenem, 500 mg, intravenous, Q24H midodrine, 5 mg, oral, TID Continuous Infusions: dextrose 5 % in water, 100 mL/hr lactated ringer's, 100 mL/hr, Last Rate: 100 mL/hr (03/08/241906) norepinephrine, 0.01-0.4 mcg/kg/min, Last Rate: 0.04 mcg/kg/min (03/08/241906) sodium chloride 0.9 %, 10 mL/hr sodium chloride 0.9 %, 10 mL/hr sodium chloride 0.9 %, 10 mL/hr, Last Rate: Stopped (03/08/241634) sodium chloride 0.9 %, 3 mL/hr, Last Rate: 3 mL/hr (03/08/241906) PRN Meds:. acetaminophen acetaminophen calcium gluconate OR calcium gluconate OR calcium gluconate dextrose dextrose 5 % in water dextrose 50 % in water (D50W) glucagon (human recombinant) ipratropium-albuteroL magnesium sulfate OR magnesium sulfate ondansetron (PF) potassium chloride OR potassium chloride potassium chloride in water OR potassium chloride in water sodium phosphate IV OR sodium phosphate IV - central line OR sod phos di, mono-K phos mono sodium chloride 0.9 % sodium chloride 0.9 % sodium chloride 0.9 % Allergies: Patient has no known allergies. Social History: Social History Socioeconomic History Marital status: Spouse name: Not on file Number of children: Not on file Years of education: Not on file Highest education level: Not on file Occupational History Not on file Tobacco Use Smoking status: Never Smokeless tobacco: Never Vaping Use Vaping status: Never Used Substance and Sexual Activity Alcohol use: Not Currently Comment: last drink 2003 Drug use: Never Sexual activity: Defer Other Topics Concern Not on file Social History Narrative Not on file Social Drivers of Health Financial Resource Strain: Low Risk (07/23/2023) Overall Financial Resource Strain (CARDIA) Difficulty of Paying Living Expenses: Not hard at all Food Insecurity: No Food Insecurity (03/08/2024) Hunger Screening Food Insecurity - Worry: Never True Food Insecurity - Inability: Never True Transportation Needs: No Transportation Needs (03/08/2024) PRAPARE - Transportation Lack of Transportation (Medical): No Lack of Transportation (Non-Medical): No Physical Activity: Insufficiently Active (07/23/2023) Exercise Vital Sign Days of Exercise per Week: 2 days Minutes of Exercise per Session: 10 min Stress: Stress Concern Present (07/23/2023) [employer] [place] [employer] - Occupational Stress Questionnaire Feeling of Stress : Very much Social Connections: Socially Isolated (07/23/2023) Social Connection and Isolation Panel [NHANES] Frequency of Communication with Friends and Family: Three times a week Frequency of Social Gatherings with Friends and Family: Three times a week Attends Confucianist Services: Never Active Member of Clubs or Organizations: No Attends Club or Organization Meetings: Never Marital Status: Interpersonal Safety: Not At Risk (03/08/2024) Humiliation, Afraid, Rape, and Kick questionnaire Fear of Current or Ex-Partner: No Emotionally Abused: No Physically Abused: No Sexually Abused: No Housing Instability: Low Risk (03/08/2024) Housing Instability Housing Instability: No Family History: Family History Problem Relation Age of Onset Diabetes Mother Stroke Mother Cancer Mother Heart attack Mother Heart attack Father Stroke Father Diabetes Father Cancer Father Previous Urologic Family history: Unknown REVIEW OF SYSTEMS: General ROS: negative Psychological ROS: negative ENT ROS: negative Hematological and Lymphatic ROS: negative Endocrine ROS: negative Respiratory ROS: positive for - shortness of breath Cardiovascular ROS: negative Gastrointestinal ROS: positive for - nausea/vomiting Genito-Urinary ROS: see HPI Musculoskeletal ROS: positive for - back pain Physical Exam: This a 73 y.o. patient Patient Vitals for the past 24 hrs: BP Temp Temp src Pulse Resp SpO2 Height Weight 03/08/24 1805 -- -- -- 74 20 93 % -- -- 03/08/24 1800 -- -- -- 66 25 100 % -- -- 03/08/24 1700 -- -- -- 64 21 100 % -- -- 03/08/24 1650 -- -- -- 65 22 100 % -- -- 03/08/24 1635 -- -- -- 72 23 99 % -- -- 03/08/24 1630 -- -- -- 76 25 98 % -- -- 03/08/24 1600 -- 36.5 C (97.7 F) Oral 70 24 100 % -- -- 03/08/24 1545 -- -- -- 71 23 97 % -- -- 03/08/24 1535 -- -- -- 73 (!) 27 98 % -- -- 03/08/24 1525 -- -- -- 69 25 100 % -- -- 03/08/24 1520 -- -- -- 69 (!) 27 100 % -- -- 03/08/24 1500 -- -- -- 69 21 100 % -- -- 03/08/24 1430 -- -- -- 70 21 100 % -- -- 03/08/24 1423 -- -- -- 75 25 100 % -- -- 03/08/24 1415 -- -- -- 71 20 100 % -- -- 03/08/24 1400 -- -- -- 68 (!) 29 100 % -- -- 03/08/24 1341 117/43 -- -- 72 -- -- -- -- 03/08/24 1300 -- -- -- 72 17 100 % -- -- 03/08/24 1203 -- -- -- 74 21 100 % -- -- 03/08/24 1200 110/51 -- -- 77 21 100 % -- -- 03/08/24 1150 112/79 -- -- 78 23 100 % -- -- 03/08/24 1146 -- -- -- 80 25 100 % -- -- 03/08/24 1130 94/81 -- -- 78 19 100 % -- -- 03/08/24 1115 (!) 85/53 -- -- 85 18 100 % -- -- 03/08/24 1100 (!) 87/44 37.1 C (98.8 F) Oral 75 20 99 % 152.4 cm (5') 83.4 kg (183 lb 13.8 oz) 03/08/24 1059 (!) 80/67 -- -- -- -- -- -- -- Constitutional: Patient in no acute distress; Neuro: alert and oriented to person place and time. Psych: Mood and affect normal. Skin: Normal Lungs: Respiratory effort normal Cardiovascular: Normal peripheral pulses Abdomen: Round, nontender, nondistended. No CVA or flank tenderness. : Circumcised phallus, testes descended bilaterally LABS: Results from last 7 days Lab Units 03/08/24 1332 03/08/24 0245 WBC X10E9/L 9.5 10.3 HEMOGLOBIN g/dL 7.9* 8.6* HEMATOCRIT % 23.1* 25.6* PLATELETS X10E9/L 188 192 Results from last 7 days Lab Units 03/08/24 1758 03/08/24 1332 03/08/24 1057 03/08/24 0245 POTASSIUM mmol/L -- 3.6 -- 4.0 CHLORIDE mmol/L -- 104 -- 105 CO2 mmol/L -- 20* -- 15* BUN mg/dL -- 67* -- 70* CREATININE mg/dL -- 5.53* -- 6.49* BEDSIDE GLUCOSE mg/dL 127* -- < > -- GLUCOSE mg/dL -- 168* -- 123* CALCIUM mg/dL -- 7.8* -- 8.7 < > = values in this interval not displayed. No results found for: PSA Additional Lab/culture results: Urine culture pending Urinalysis: Lab Results Component Value Date COLOR YELLOW 03/08/2024 TURBIDITY CLOUDY (A) 03/08/2024 SPECIFICGRA 1.025 03/08/2024 SPECIFICGRA 1.025 03/08/2024 NITRITE Negative 03/08/2024 PHURINE 5.5 03/08/2024 LEUKOCYTE Small (A) 03/08/2024 LEUKOCYTE SMALL (A) 03/08/2024 PROTEIN 30 (A) 03/08/2024 KETONES Negative 03/08/2024 UROBILINOGEN 0.2 03/08/2024 UROBILINOGEN 0.2 03/08/2024 BLOODHGB SMALL (A) 03/08/2024 Imaging Results: CT abdomen and pelvis FINDINGS: Please refer to separate report for chest findings. The liver, gallbladder, spleen, and adrenal glands are unremarkable. Atrophy of the pancreas. Nonobstructing bilateral renal stones, left larger and more numerous than right. No ureteral stones or collecting system dilatation. Bladder is underdistended. Small fat-containing inguinal hernias. Normal appendix. The small and large bowel are of normal caliber with no evidence of bowel wall thickening. No free fluid in the abdomen or pelvis. No free intraperitoneal air. Previous umbilical hernia repair. Status post endograft repair of abdominal aortic aneurysm. Diffuse atherosclerotic disease. Moderate to severe T12 compression deformity, unchanged. IMPRESSION: * No acute abnormalities in the abdomen/pelvis. * Numerous incidental findings described above. Assessment and Plan Impression: Left renal stone - 1.5 cm left renal stone, partial staghorn, no obstruction seen Recurrent UTIs - Proteus and Dorothea UTIs in past CRISTINE - creatinine improving, 5.53 down from 6.49 Plan: No immediate intervention needed for left renal stone as there are no signs of obstruction. If patient were to develop flank pain, will re-evaluate. Patient will require outpatient treatment of stone with either ureteroscopy or PCNL Will trend creatinine Will discuss with attending EMMA SUAREZ 7:19 PM 03/08/2024 EMMA Suarez 03/08/241926 * Ale Bowser MD - 03/08/2024 12:52 PM ESTAssociated Order(s): IP CONSULT TO NEPHROLOGY NEPHROLOGY CONSULT NOTE Date of Admission: 03/08/2024 10:50 AM Reason for Consult: Acute kidney injury Referring Physician: Shirley Dumont DO PCP: NO PCP, NO PCP Chief Complaint: Syncope Assessment 1. Acute kidney injury attributed to acute tubular necrosis versus prerenal fluctuations in the setting of sepsis and shock No indication for dialysis today Reassess after he receives IV fluid trial 2. Hypotension/shock: Rule out underlying infection/sepsis. Blood cultures are pending, continue empiric antibiotics 3. Syncopal event possibly from orthostatic hypotension, continue maintenance IV fluids 4. Metabolic acidosis in the setting of recent diarrhea and acute kidney injury to be corrected with alkaline IV infusion 5. Volume status: Start alkaline IV infusion, no indication for dialysis today Plan 1. Bladder scan to rule out retention 2. Wean off Levophed as tolerated 3. Start him on D5 water +150 mEq sodium bicarb at 1:25 a.m. mL/hour 4. No indication for dialysis at this time History of Present Illness Brian Mandel is a 73 y.o. male who we have been asked to evaluate for management of acute kidney injury. He has known history of diabetes mellitus type 2, hypertension, history of TAVR comes in after he had an episode of syncope. He apparently has had nausea and vomiting along with diarrhea for the pastweek. He reports having chronic pain issues in his back from bulging discs. He is scheduled to receive back surgery end of this month. We had last seen him in September 2023 when he has been admitted with similar complaints and had acutekidney injury that resolved. He is currently hypotensive and requiring Levophed support I had a pretty high dose. He is borderline oliguric. Respiratory status at baseline, he is requiring 3 L nasal cannula oxygen support which is what he is on at home. Creatinine level trending as follows: 1.1 mg/dL (December 2023) --> 6.5 mg/dL (03/08/2024) Problem List Acute kidney injury likely related to Acute Tubular Necrosis secondary to septic shock. Creatinine baseline 1.1 mg/dL. Renal ultrasound December 2023 shows right kidney 9 cm, left kidney 10.2 cm withno hydronephrosis. From September of 2023 serum protein electrophoresis revealed monoclonal protein of0.3 grams/deciliter, serum immunofixation was negative monoclonal bands, LUIGI and anti-GBM were negative, C3 was 136 and C4 was 35, free kappa to lambda ratio was 1.6. Urinalysis from February 2024 showed 100 mg/dL of protein, no RBCs specific gravity 1.025. Hypotension/shock Diabetes mellitus type 2 Hypertension Severe aortic stenosis status post TAVR 11/25/2023 CAD status post CABG with unknown vessels involved in the past. Also has had PTCA/stent in July 2023, no report available. This was done at [facility] in [place]. COPD on home oxygen Obesity Obstructive sleep apnea Hyperlipidemia History of methicillin-resistant Staphylococcus aureus bacteremia in July of 2023 resulting in hospitalization. A source was never identified. He completed a 28 day course of vancomycin as an outpatient to treat the bacteremia of unknown source. Recent Proteus mirabilis urinary tract infection August 2020 History of megaloblastic anemia with folate deficiency 2D echo November 2023 shows EF 55-60%. Prior THIERRY from October 2023 showed preserved EF and normal right ventricular systolic function. Past Medical History Past Medical History: Diagnosis Date Acute coronary syndrome [place] Anxiety disorder Chronic back pain Chronic obstructive asthma with exacerbation [place] COPD (chronic obstructive pulmonary disease) [place]) Diabetes mellitus type 2, controlled ([facility] Essential hypertension Folate deficiency anemia Heart failure ([facility] Hypotension 11/22/2023 Megaloblastic anemia VT (myocardial infarction) ([facility] 06/2023 Muscle weakness (generalized) Myocardial infarct ([facility] Obesity Obstructive sleep apnea SARAH (obstructive sleep apnea) Pancytopenia [place] Presence of coronary artery bypass graft stent Shock ([facility]) 10/05/2023 Supplemental oxygen dependent Past Surgical History Past Surgical History: Procedure Laterality Date CARDIAC SURGERY X2 Transcutaneous aortic valve replacement/Transfemoral/[place] N/A 11/25/2023 Performed by Henrietta Arias MD at [facility] CARDIAC CATH LABS Allergies: No Known Allergies Home Meds: Medications Prior to Admission Medication Sig Dispense Refill Last Dose/Taking acetaminophen (TYLENOL) 325 mg tablet Take 2 tablets (650 mg total) by mouth every 8 (eight) hours as needed for pain. (Patient not taking: Reported on 11/22/2023) albuterol (PROVENTIL,VENTOLIN) 2.5 mg /3 mL (0.083 %) nebulizer solution Inhale 3 mL (2.5 mg total)by nebulization every 6 (six) hours as needed for wheezing. Patient takes it every 2 hours amitriptyline (ELAVIL) 25 mg tablet Take 1 tablet (25 mg total) by mouth in the morning. cyanocobalamin 500 MCG tablet Take 1 tablet (500 mcg total) by mouth. FLUoxetine (PROzac) 20 MG tablet Take 1 tablet (20 mg total) by mouth. fluticasone propionate (FLONASE) 50 mcg/actuation nasal spray Administer 1 spray into each nostril in the morning. 11.1 mL 0 furosemide (LASIX) 20 mg tablet TAKE 1 TABLET BY MOUTH TWICE DAILY (IN THE MORNING and late afternoon) metFORMIN XR (GLUCOPHAGE XR) 750 mg 24 hr tablet Take 1 tablet (750 mg total) by mouth nightly. metoprolol succinate XL (TOPROL XL) 25 mg 24 hr tablet Take 1 tablet (25 mg total) by mouth in the morning. 30 tablet 0 nitroglycerin (NITROSTAT) 0.[address] 1 tablet (0.4 mg total) under the tongue every 5 (five) minutes as needed for chest pain. PARoxetine (PAXIL) 10 mg tablet Take 1 tablet (10 mg total) by mouth every morning. pioglitazone (ACTOS) 30 mg tablet Take 1 tablet (30 mg total) by mouth in the morning. simethicone (MYLICON) 80 mg chewable tablet Chew 1 tablet (80 mg total) and swallow every 6 (six) hours as needed for flatulence. (Patient not taking: Reported on 11/22/2023) simvastatin (ZOCOR) 40 mg tablet Take 1 tablet (40 mg total) by mouth. ticagrelor (BRILINTA) 90 mg tablet Take 1 tablet (90 mg total) by mouth every 12 (twelve) hours. Social History: Social History Socioeconomic History Marital status: Spouse name: Not on file Number of children: Not on file Years of education: Not on file Highest education level: Not on file Occupational History Not on file Tobacco Use Smoking status: Never Smokeless tobacco: Never Vaping Use Vaping status: Never Used Substance and Sexual Activity Alcohol use: Not Currently Comment: last drink 2003 Drug use: Never Sexual activity: Defer Other Topics Concern Not on file Social History Narrative Not on file Social Drivers of Health Financial Resource Strain: Low Risk (07/23/2023) Overall Financial Resource Strain (CARDIA) Difficulty of Paying Living Expenses: Not hard at all Food Insecurity: No Food Insecurity (03/08/2024) Hunger Screening Food Insecurity - Worry: Never True Food Insecurity - Inability: Never True Transportation Needs: No Transportation Needs (02/07/2024) [facility] - Transportation Lack of Transportation (Medical): No Lack of Transportation (Non-Medical): No Physical Activity: Insufficiently Active (07/23/2023) Exercise Vital Sign Days of Exercise per Week: 2 days Minutes of Exercise per Session: 10 min Stress: Stress Concern Present (07/23/2023) [employer] [place] [employer] - Occupational Stress Questionnaire Feeling of Stress : Very much Social Connections: Socially Isolated (07/23/2023) Social Connection and Isolation Panel [NHANES] Frequency of Communication with Friends and Family: Three times a week Frequency of Social Gatherings with Friends and Family: Three times a week Attends Confucianist Services: Never Active Member of Clubs or Organizations: No Attends Club or Organization Meetings: Never Marital Status: Interpersonal Safety: Not At Risk (01/16/2024) Humiliation, Afraid, Rape, and Kick questionnaire Fear of Current or Ex-Partner: No Emotionally Abused: No Physically Abused: No Sexually Abused: No Housing Instability: Low Risk (02/07/2024) Re[facility] Housing Stability Vital Sign Unable to Pay for Housing in the Last Year: No Number of Times Moved in the Last Year: 0 Homeless in the Last Year: No Family History: Family History Problem Relation Age of Onset Diabetes Mother Stroke Mother Cancer Mother Heart attack Mother Heart attack Father Stroke Father Diabetes Father Cancer Father Review of Systems Constitutional: Negative for fever, chills and fatigue HENT: Negative Eyes: Negative Respiratory: Negative for cough and shortness of breath. Cardiovascular: Negative for chest pain and palpitations. Gastrointestinal: Positive for nausea, vomiting and diarrhea. Negative for abdominal pain. Endocrine: Negative. Genitourinary: Negative for dysuria, urgency, frequency, hematuria, flank pain, decreased urine volume and difficulty urinating. Musculoskeletal: Negative for myalgias, joint swelling and arthritis. Skin: Negative for rash. Allergy/immunology: Negative. Neurological: Negative for lightheadedness. Hematological: Negative. Psychiatric/Behavioral: Negative. Extremities: No edema Physical Exam Respiratory Source: O2 Device: Nasal cannula Admission Weight: Weight: 83.4 kg (183 lb 13.8 oz) Wt Readings from Last 3 Encounters: 03/08/24 83.4 kg (183 lb 13.8 oz) 03/08/24 71.2 kg (157 lb) 01/20/24 85.3 kg (188 lb 1.6 oz) No intake/output data recorded. Vital Signs: Blood pressure (!) 85/53, pulse 85, temperature 37.1 C (98.8 F), temperature source Oral, resp. rate 18, height 152.4 cm (5'), weight 83.4 kg (183 lb 13.8 oz), SpO2 100%. General: Alert, oriented x 3 and in no obvious distress Psychiatric: Has a normal mood and affect. HEENT: Head normocephalic. Eyes: Conjunctivae and EOM are normal. Pupils are equal, round and reactive to light. Cardiovascular: Normal rate, regular rhythm and normal heart sounds. No JVD. Pulmonary/Chest: Air entry bilaterally equal. No wheezes or rales. Abdominal: Soft, bowel sounds are normal and there was no tenderness rebound or guarding. Musculoskeletal: Normal range of motion. No tenderness. Neurological: No obvious deficits. Skin: No rash noted. Extremities: No edema Laboratory Studies Results from last 7 days Lab Units 03/08/24 0245 SODIUM mmol/L 135 POTASSIUM mmol/L 4.0 CHLORIDE mmol/L 105 CO2 mmol/L 15* BUN mg/dL 70* CREATININE mg/dL 6.49* CALCIUM mg/dL 8.7 MAGNESIUM mg/dL 1.2* Results from last 7 days Lab Units 03/08/24 0245 WBC X10E9/L 10.3 HEMOGLOBIN g/dL 8.6* HEMATOCRIT % 25.6* PLATELETS X10E9/L 192 Results from last 7 days Lab Units 03/08/24 0245 MAGNESIUM mg/dL 1.2* Lab Results Component Value Date CALCIUM 8.7 03/08/2024 Lab Results Component Value Date IRON 122 01/16/2024 TIBC 227 (L) 01/16/2024 FERRITIN 359 (H) 01/16/2024 Thank you for the consultation and involving me in the patient's care. Please contact me at [phone] (Office) or [phone] (Answering service) with any questions. Please feel free to contact me through [employer] Secure chat during the daytime hours, if no response after 5 minutes then call the answering service. Ale Bowser MD [facility] This note was created with the assistance of a speech-recognition program. Although the intention is to generate a document that actually reflects the content of the visit, no guarantees can be provided that every mistake has been identified and corrected by editing. documented in this encounterOhioHealth Grant Medical Center01-22-2025 Hospital Discharge instructions* Appointments* Jessica Renee - 03/14/2024 1:23 PM EST YOUR SCHEDULED APPOINTMENTS Please make note of this in your schedule as to not miss or call to reschedule. Thank you! New Patient with Joy Paez, PER DIEM PHYSICAL THERAPIST ASSISTANT - RN REFERRAL March 1:20 PM EST (40 minutes) [address] [address] ?[phone]? Pt. should bring the following to appointment; Discharge paperwork Picture ID, Insurance card, co-pay, and all current medications in their bottles. Please provide a 24 hour notice for cancellation. Failure to do so will result in the practice declining to see pt. in the future. If you have insurance copay you must bring with you to the appointment. Please arrive about 15 minutes prior to appointment for check-in/registration. For NEW PATIENT APPOINTMENTS, please arrive 30 minutes early to complete new patient paperwork. For NEW patients, MD will not prescribe [facility] pain medication. * Attachments The following attachments cannot be sent through Care Everywhere. * Vertebroplasty and kyphoplasty (Finnish) * Postspine Surgery Precautions (Finnish) * Vertebral compression fracture (Finnish) * Getting Up From a Fall (Finnish) * Preventing Falls ED (Finnish) * Standing Balance Exercises? Advanced (Finnish) * Bone density testing (Finnish) * Vitamin D deficiency (Finnish) * Calcium and vitamin D for bone health (Finnish) * Cholecalciferol? ADULT (Finnish) * Ergocalciferol? ADULT (Finnish) * Osteoporosis and osteopenia (low bone mass) (Finnish) * Dual Energy X-ray Absorptiometry (Finnish) * Medicines for osteoporosis (Finnish) documented in this encounterSelect Medical Specialty Hospital - YoungstownFluentify Mcl[facility] [id number] Miscellaneous Notes* Telephone Encounter - Henna Beasley MD - 03/10/2024 2:09 PM EST Please schedule follow up at the [place] office with Dr. Sylvester or Leena to discuss stone treatment. Should be seen within 2-3 weeks documented in this encounterOhioHealth Grant Medical Center01-18-2025 Telephone encounter Note* Telephone Encounter - Henna Beasley MD - 03/10/2024 2:09 PM EST Please schedule follow up at the [place] office with Dr. Sylvester or Leena to discuss stone treatment. Should be seen within 2-3 weeks [employer] Work Phone: [phone] 434-150201-16-2025 Procedure note* JOSE D Moody CNP - 03/08/2024 12:33 PM ESTAssociated Order(s): Arterial Line Insertion Post-Procedure Diagnose(s): Acute renal failure, unspecified acute renal failure type (CMS-HCC) PREOPERATIVE DIAGNOSIS: CRISTINE PROCEDURE: Arterial Line Insertion Date/Time: 03/08/2024 12:33 PM Performed by: APRIL Moody Authorized by: APRIL Moody Consent: Verbal consent obtained. Risks and benefits: risks, benefits and alternatives were discussed Consent given by: patient Patient understanding: patient states understanding of the procedure being performed Patient consent: the patient's understanding of the procedure matches consent given Procedure consent: procedure consent matches procedure scheduled Relevant documents: relevant documents present and verified Test results: test results available and properly labeled Site marked: the operative site was marked Imaging studies: imaging studies available Required items: required blood products, implants, devices, and special equipment available Patient identity confirmed: verbally with patient and arm band Time out: Immediately prior to procedure a time out was called to verify the correct patient, procedure, equipment, support technician and site/side marked as required. Fire Risk Assessment Score Procedure site above the Xiphoid 0 Open O2 source (mask/cannula) 1 Ignition source (Cautery, Fiberoptic Light, Laser) 0 Total Fire Risk Assessment Score 1 Preparation: Patient was prepped and draped in the usual sterile fashion. Indications: hemodynamic monitoring Anesthesia: local infiltration and see MAR for details Anesthesia: Local Anesthetic: lidocaine 1% without epinephrine Anesthetic total: 3 mL Sedation: Patient sedated: no Sadaf's test normal: yes Needle gauge: 20 Seldinger technique: Seldinger technique used Number of attempts: 1 Post-procedure: line sutured and dressing applied Post-procedure CMS: normal Patient tolerance: Patient tolerated the procedure well with no immediate complications Procedure was completed Vital signs stable during the procedure Complications: none Interventions: none Post Anesthesia Evaluation (excludes pre-procedural restrictions and appropriate to age) patient returned to pre-procedure baseline post-procedure nausea and vomiting status reviewed post-procedure vital signs reviewed and stable 1st Batch Operator: none ESTIMATED BLOOD LOSS: 1 POST OPERATIVE DIAGNOSIS: CRISTINE APRIL Moody 03/08/24 1235 documented in this encounterOhioHealth Grant Medical Center12-20-2024 History of Present illness Narrative* Kaiden Stack RN - 02/10/2024 11:06 AM EST Discharge instructions and education reviewed with the patient. The patient denies questions, call light within reach. * Brant Douglass RN - 02/10/2024 10:06 AM EST Spoke with KATLIN Iglesias, stated pt will be discharged today. * Brant Douglass RN - 02/10/2024 10:04 AM EST Pt requesting his nurse. States, ride is on the way. Informed Dom primary nurse. * Kianna Cornejo RN - 02/10/2024 7:36 AM EST Director Of Brand Marketing to bedside to complete morning assessment. Upon entry to room, pt awake and lying in bed, respirations even and unlabored while on room air. Vitals obtained and assessment completed, see flow sheet for details. Pt denies needs from investigative writer at this time. Call light in reach. Care ongoing. * Elis Alonso - 02/09/2024 6:54 PM EST Director Of Brand Marketing walking past room and PT yelled out for investigative writer to come into the room. Pt asked for his machine to be hooked up and turned on. Director Of Brand Marketing explained to PT that I am not an RN that I can not hooker laster that machine. PT then raised his voice and responded with I used my call light 5 times and have been asking for someone to turn it on. I am gonna use it one more time and then I am calling a squad tocome and take me somewhere else. Director Of Brand Marketing explained to PT that I have only answered his call light once since I have been here and passed that information onto his nurse. She will be in as soon as possible. Director Of Brand Marketing also asked PT to please use his call light instead of yelling out for assistance. Pt responded with 1 more time I am gonna use the call light and then I am calling for a squad to take me somewhere else. Director Of Brand Marketing informed PT I would let his nurse know he is requesting the machine to be hooked up. Bed alarm on and call light within reach of pt. * Nancy Salazar PTA - 02/09/2024 3:29 PM EST Physical Therapy [facility] Inpatient/Observation/Outpatient Rehabilitation Date: 02/09/2024 Patient Name: Brian Mandel [x] Inpatient Acute/Observation [] Outpatient : 1950 [x] Pt refused/declined therapy at this time due to: wanting to sleep, attempted x2 Therapist/Batch Operator will attempt to see this patient, at our earliest opportunity. Nancy Salazar, B[place]LEY Date: 02/09/2024 ENCE * Nancy Salazar PTA - 02/09/2024 10:23 AM EST Physical Therapy Facility/Department: [facility] Daily Treatment Note NAME: Brian Mandel : 1950 Date of Service: 02/09/2024 Discharge Recommendations: Continue to assess pending progress, Home with assist PRN, Home independently Patient Diagnosis(es): The primary encounter diagnosis was Acute cystitis with hematuria. Diagnosesof Kidney stone, Recurrent left pleural effusion, Anemia requiring transfusions, Hypomagnesemia, Hypokalemia, T12 compression fracture, sequela, and S/P TAVR (transcatheter aortic valve replacement) were also pertinent to this visit. Assessment Assessment: Pt ambulating 40ft with FWW and SBAx1. Pt performed reclined and seated exer B LE x15 in all available planes of motion. Cues given throughout therapy session for pursed lip breathing, occasional seated rest break for fatigue and LB pain. Pt required use of B UE support to complete standing exer, pt having mild increased pain in LB. Activity Tolerance: Patient tolerated treatment well Plan Physical Therapy Plan General Plan: 2 times a day 7 days a week Specific Instructions for Next Treatment: Once daily on weekends Current Treatment Recommendations: Strengthening;ROM;Balance training;Functional mobility training;Transfer training;Neuromuscular re-education;Stair training;Gait training;Home exercise program;Safety education & training;Patient/Caregiver education & training;Manual;Therapeutic activities; Endurance training Restrictions Restrictions/Precautions Restrictions/Precautions: Fall Risk, General Precautions Subjective Orientation Overall Orientation Status: Within Functional Limits Objective Bed Mobility Training Bed Mobility Training: No Balance Sitting: Intact Standing: Impaired Standing - Static: Good Standing - Dynamic: Fair Transfer Training Transfer Training: Yes Overall Level of Assistance: Assist X1;Stand-by assistance Interventions: Verbal cues;Safety awareness training Sit to Stand: Assist X1;Stand-by assistance Stand to Sit: Assist X1;Stand-by assistance Gait Training Right Side Weight Bearing: Full Left Side Weight Bearing: Full Gait Gait Training: Yes Left Side Weight Bearing: Full Right Side Weight Bearing: Full Overall Level of Assistance: Stand-by assistance;Assist X1 Distance (ft): 40 Feet Assistive Device: Gait belt;Walker, rolling Interventions: Verbal cues;Safety awareness training Base of Support: Widened Step Length: Left shortened;Right lengthened Gait Abnormalities: Decreased step clearance PT Exercises Exercise Treatment: Reclined, seated, and standing B LE exer x15 in all available planes of motion. Safety Devices Type of Devices: All fall risk precautions in place;Call light within reach;Chair alarm in place;Left in chair;Gait belt Goals Short Term Goals Time Frame for Short Term Goals: 20 days Short Term Goal 1: Patient to complete all transfers with SUP and no LOB to decrease fall risk. Short Term Goal 2: Patient to ambulate 50ftx2 with FWW and SUP with no LOB or increased pain to improve mobility. Short Term Goal 3: Patient to ascend/descend 4 steps with HRx1 and SUP with no LOB to safely enter his home. Short Term Goal 4: Patient to tolerate 20-30 min of ther ex/act for improved functional strength. Education Patient Education Education Given To: Patient Education Provided: Role of Therapy;Plan of Care;Transfer Training Education Method: Verbal Barriers to Learning: None Education Outcome: Verbalized understanding;Continued education needed Therapy Time Individual Concurrent Group Co-treatment Time In 957 Time Out 1022 Minutes 24 Timed Code Treatment Minutes: 24 Minutes Nancy Salazar PTA * Natalie Taveras PA-C - 02/09/2024 10:11 AM EST Images from the original note were not included. IMaggie am scribing for and in the presence of Natalie Taveras PA-C. Patient: Brian Mandel : 1950 Date of Admission: 02/07/2024 Primary Care Physician: Melanie Taylor Today's Date: 02/09/2024 REASON FOR CONSULTATION: Back Pain (Chronic mid back pain ongoing for approx. 3 years. Reports painworsening the last couple days causing difficulty walking. States has no medications for pain. Was seen at [facility] on Tuesday for same symptoms. Also has known kidney stones causing increased back pain. ) HPI: Mr. Mandel is a 73 y.o. male with extensive medical history as detailed below who presentedto the hospital because of progressive weakness and a fall. Patient found to have acute on chronic kidney injury and electrolyte abnormalities leading to his current admission. He has history of coronary artery disease, severe COPD and chronic hypoxemic respiratory failure onhome oxygen therapy. Obstructive sleep apnea using BiPAP, recent diagnosis of liver cirrhosis and history of kidney stone. Patient has a history of severe aortic stenosis status post TAVR in November 2023 at [facility]. He does have history of chronic anemia. Multiple admission over the past few months for chronic back pain, sepsis secondary to urinary tract infection, recurrent syncope, recurrent CRISTINE's. He lives by himself but he is still driving. His functional capacity is extremely limited because of multiple comorbidities and chronic back problem. He reported feeling slightly better since admission. He is still having shortness of breath on mildexertion. Still complaining of back pain. I did explain to him that his heart palpitations with exertion are more or less normal giving his respiratory failure, chronic pain syndrome, chronic diastolic CHF, chronic anemia and deconditioning. Mr. Mandel is doing better today. He does have shortness of breath, denies any dizziness. He is working with PT and doing well with them. Denies any blood in urine or stools. He does have back pain that is at a 7. The plan is to go to rehab possibly. He uses 3 liters of oxygen, he has been on itfor 6 years. Down 2 pounds from yesterday. Past Medical History: Diagnosis Date AAA (abdominal aortic aneurysm) (HCC) Arthritis CAD (coronary artery disease) COPD (chronic obstructive pulmonary disease) (HCC) Electrolyte imbalance 02/07/2024 Emphysema (subcutaneous) (surgical) resulting from a procedure History of cardiac cath 1996 - stent placed Hyperlipidemia Hypertension Hypokalemia 02/07/2024 Hypomagnesemia 02/07/2024 Insomnia Megaloblastic anemia 02/07/2024 CURRENT ALLERGIES: Patient has no known allergies. REVIEW OF SYSTEMS: 14 systems were reviewed. Pertinent positives and negatives as above, all else negative. Past Surgical History: Procedure Laterality Date ARTERIAL BYPASS SURGRY Bilateral filters placed femoral arteries for AAA BYPASS GRAFT Left femoral COLONOSCOPY a couple years ago CORONARY ARTERY BYPASS GRAFT 02/24/2007 x3 ROTATOR CUFF REPAIR Left 08/2018 UMBILICAL HERNIA REPAIR Social History: Social History Tobacco Use Smoking status: Never Smokeless tobacco: Never Vaping Use Vaping status: Never Used Substance Use Topics Alcohol use: Never Drug use: Never CURRENT MEDICATIONS: Outpatient Medications Marked as Taking for the 02/07/24 encounter (Hospital Encounter) Medication Sig Dispense Refill Cyanocobalamin (VITAMIN B 12) 500 MCG TABS Take 1 tablet by mouth daily Ticagrelor (BRILINTA PO) Take 1 tablet by mouth 2 times daily FLUoxetine (PROZAC) 20 MG tablet Take 1 tablet by mouth daily simvastatin (ZOCOR) 40 MG tablet Take 1 tablet by mouth nightly Metoprolol Succinate 25 MG CS24 Take 12.5 mg by mouth 2 times daily famotidine (PEPCID) tablet 20 mg, Daily 0.9 % sodium chloride infusion, PRN FLUoxetine (PROZAC) capsule 20 mg, Daily metoprolol succinate (TOPROL XL) extended release tablet 12.5 mg, BID atorvastatin (LIPITOR) tablet 20 mg, Daily sodium chloride flush 0.9 % injection 10 mL, 2 times per day sodium chloride flush 0.9 % injection 10 mL, PRN 0.9 % sodium chloride infusion, PRN ondansetron (ZOFRAN-ODT) disintegrating tablet 4 mg, Q8H PRN Or ondansetron (ZOFRAN) injection 4 mg, Q6H PRN polyethylene glycol (GLYCOLAX) packet 17 g, Daily PRN acetaminophen (TYLENOL) tablet 650 mg, Q6H PRN Or acetaminophen (TYLENOL) suppository 650 mg, Q6H PRN magnesium sulfate 2000 mg in 50 mL IVPB premix, PRN cefTRIAXone (ROCEPHIN) 1,000 mg in sterile water 10 mL IV syringe, Q24H oxyCODONE (ROXICODONE) immediate release tablet 5 mg, Q4H PRN dexAMETHasone (DECADRON) tablet 6 mg, Daily FAMILY HISTORY: Reviewed and noncontributory. PHYSICAL EXAM: BP 111/67 Pulse 64 Temp (!) 96.5 F (35.8 C) (Temporal) Resp 18 Ht 1.524 m (5') Wt 84.2 kg(185 lb 9.6 oz) SpO2 99% BMI 36.25 kg/m Body mass index is 36.25 kg/m . Constitutional: He is oriented to person, place, and time. He appears well- developed and well-nourished. In no acute distress. HEENT: Normocephalic and atraumatic.No JVD present. Carotid bruit is not present. No mass and no thyromegaly present. No lymphadenopathy present. Cardiovascular: Normal rate, regular rhythm, normal heart sounds. Exam reveals no gallop and no friction rubs. No murmur was heard.. Pulmonary/Chest: Poor air entry bilaterally. No significant wheezes or crackles. Abdominal: Soft, non-tender. Bowel sounds and aorta are normal. He exhibits no organomegaly, mass or bruit. Extremities: Trace. No cyanosis or clubbing. 2+ radial and carotid pulses. Distal extremity pulses:2+ bilaterally.. Neurological: He is alert and oriented to person, place, and time. No evidence of gross cranial nerve deficit. Coordination appeared normal. Skin: Skin is warm and dry. There is no rash or diaphoresis. Psychiatric: He has a normal mood and affect. His speech is normal and behavior is normal. MOST RECENT LABS ON RECORD: Lab Results Component Value Date WBC 11.6 (H) 02/09/2024 HGB 9.3 (L) 02/09/2024 HCT 27.7 (L) 02/09/2024 PLT 110 (L) 02/09/2024 ALT 10 02/07/2024 AST 26 02/07/2024 NA 135 (L) 02/09/2024 K 4.2 02/09/2024 CL 103 02/09/2024 CREATININE 1.3 (H) 02/09/2024 BUN 17 02/09/2024 CO2 24 02/09/2024 INR 1.1 02/07/2024 ASSESSMENT: Patient Active Problem List Diagnosis Date Noted Acute cystitis with hematuria 02/08/2024 Kidney stone 02/08/2024 Generalized weakness 02/07/2024 Electrolyte imbalance 02/07/2024 Megaloblastic anemia 02/07/2024 Hypokalemia 02/07/2024 Hypomagnesemia 02/07/2024 AAA (abdominal aortic aneurysm) ([facility]) S/P TAVR (transcatheter aortic valve replacement) 11/2023 Anemia requiring transfusions 09/26/2018 Pure hypercholesterolemia 09/26/2018 Body mass index 40.0-44.9, adult 09/26/2018 Essential hypertension, benign 09/26/2018 Old myocardial infarction 09/26/2018 Anxiety disorder 09/26/2018 Major depressive disorder 09/26/2018 Chronic diastolic congestive heart failure (HCC) 09/26/2018 Solitary pulmonary nodule 09/26/2018 Obstructive sleep apnea (adult) (pediatric) 09/26/2018 retirement current use of inhaled steroid 09/26/2018 Difficulty walking 09/26/2018 Chronic respiratory failure with hypoxia 09/26/2018 COPD (chronic obstructive pulmonary disease) (HCC) 09/26/2018 Rotator cuff tear, non-traumatic, right 09/26/2018 Muscle weakness (generalized) 09/26/2018 PLAN: Patient with extensive medical history as outlined in HPI. History of coronary artery disease status post PCI back in 1996, history of CABG and hour to bifemoral bypass for the treatment of severe peripheral vascular disease. History of severe aortic stenosis status post TAVR in November 2023. Chronic diastolic CHF. Severe COPD, chronic hypoxemic respiratory failure on home oxygen therapy. Chronic back pain, which fracture of T12 vertebral body. Chronic normocytic normochromic anemia, was evaluated by hematology before. Functional capacity is extremely limited by multiple comorbidities, patient complaining of palpitations on minor exertion in addition to worsening shortness of breath. No florid signs of volume overload. Admitted with CRISTINE and severe electrolyte abnormalities, his most recent creatinine is normal. Serumpotassium and magnesium are back to normal. We will get repeat BNP and an echocardiogram today. Hepatic function test, patient has history of liver cirrhosis. Continue metoprolol and Lipitor. We should start aspirin giving his bioprosthetic aortic valve once his hemoglobin is stable, hemoglobin was 9.3 today. Please consider hematology, nephrology and urology evaluation. Patient more than likely will require placement to an assisted living-nursing facility, request PT/OT evaluation. Will follow-up Once again, thank you for allowing me to participate in this patients care. Please do not hesitate to contact me if I could be of any further assistance. Sincerely, Natalie Taveras PA-C [facility] [employer] Work[employer] [address] [place] [id number] , I believe that the risk of significant morbidity and mortality related to the patient's current medical conditions are: intermediate-high. The documentation recorded by the scribe, accurately and completely reflects the services I personally performed and the decisions made by me. Natalie Taveras PA-C February 09, 2024 * Maggie Lehman MSW, NICHOLAS - 02/09/2024 10:03 AM EST Pt wants to go to [facility] in [place]. CM faxed referral to facility. SW called to [facility] to let them know it was coming and they will call with answer if they can accept. Pt has been at their facility before. SW following. JEANCARLOS Miguel LSW 02/09/2024 [facility] calls back and they are able to accept pt and they will start precert for pt. BRIAN also spoke with [facility] and notified of change in plans. Olvin states that pt's PCP office had dismissedhim from care as well. Plan for pt to transfer to [facility] when insurance approval is received. JEANCARLOS Miguel LSW 02/09/2024 * Kelsie Caba APRN - CNP - 02/09/2024 9:01 AM EST Progress Note SUBJECTIVE: Patient seen for f/u of Generalized weakness. He sitting up in chair no distress. Feels better. No further n/v. Pain controlled. ROS: Constitutional: negative for fevers, and negative for chills. Respiratory: negative for shortness of breath, negative for cough, and negative for wheezing Cardiovascular: negative for chest pain, and negative for palpitations Gastrointestinal: negative for abdominal pain, negative for nausea,negative for vomiting, negative for diarrhea, and negative for constipation All other systems were reviewed with the patient and are negative unless otherwise stated in HPI OBJECTIVE: Vitals: Vitals: 02/09/24 0758 BP: 111/67 Pulse: 64 Resp: 18 Temp: (!) 96.5 F (35.8 C) SpO2: 99% Weight - Scale: 84.2 kg (185 lb 9.6 oz) Height: 152.4 cm (5') Weight Wt Readings from Last 3 Encounters: 02/09/24 84.2 kg (185 lb 9.6 oz) 05/18/18 99.6 kg (219 lb 9.6 oz) Body mass index is 36.25 kg/m . 24HR INTAKE/OUTPUT: Intake/Output Summary (Last 24 hours) at 02/09/2024 09 Last data filed at 02/09/2024 0549 Gross per 24 hour Intake 680 ml Output 1100 ml Net -420 ml Exam: GEN: Awake, alert and oriented x3. EYES: EOMI, pupils equal NECK: Supple. No lymphadenopathy. No carotid bruit CVS: regular rate and rhythm, no audible murmur PULM: CTA, no wheezes, rales or rhonchi, no acute respiratory distress ABD: Bowels sounds normal. Abdomen is soft. No distention. no tenderness to palpation. EXT: no edema bilaterally . No calf tenderness. NEURO: Moves all extremities. Motor and sensory are grossly intact SKIN: No rashes. No skin lesions. Diagnostic Data: Complete Blood Count: Recent Labs 02/07/24 1144 02/07/24 2130 02/08/24 0600 02/09/24 0605 WBC 8.0 -- 5.0 11.6* RBC 1.93* -- 2.62* 2.79* HGB 6.6* 9.0* 8.6* 9.3* HCT 19.7* 26.3* 25.3* 27.7* MCV 102.1 -- 96.6 99.3 MCH 34.2* -- 32.8 33.3 MCHC 33.5 -- 34.0 33.6 RDW 18.0* -- 19.5* 19.2* PLT 142 -- 109* 110* MPV 11.9 -- 11.4 12.0 Last 3 Blood Glucose: Recent Labs 02/07/24 1144 02/07/24 1450 02/08/24 0600 02/09/24 0605 GLUCOSE 90 93 210* 161* Comprehensive Metabolic Profile: Recent Labs 02/07/24 1144 02/07/24 1450 02/08/24 0140 02/08/24 0600 02/09/24 0605 NA 137 136 -- 131* 135* K 3.0* 2.8* 4.7 4.6 4.2 CL 97* 98 -- 102 103 CO2 23 24 -- 22 24 BUN 16 14 -- 13 17 CREATININE 1.5* 1.4* -- 1.1 1.3* GLUCOSE 90 93 -- 210* 161* CALCIUM 8.6 8.0* -- 7.8* 8.7 BILITOT 0.7 -- -- -- -- ALKPHOS 140* -- -- -- -- AST 26 -- -- -- -- ALT 10 -- -- -- -- Urinalysis: Lab Results Component Value Date/Time NITRU NEGATIVE 02/07/2024 01:11 PM COLORU Yellow 02/07/2024 01:11 PM PHUR 6.5 02/07/2024 01:11 PM WBCUA 10 TO 20 02/07/2024 01:11 PM RBCUA None 02/07/2024 01:11 PM BACTERIA TRACE 02/07/2024 01:11 PM LEUKOCYTESUR SMALL 02/07/2024 01:11 PM UROBILINOGEN Normal 02/07/2024 01:11 PM BILIRUBINUR NEGATIVE 02/07/2024 01:11 PM GLUCOSEU NEGATIVE 02/07/2024 01:11 PM KETUA TRACE 02/07/2024 01:11 PM Latest Reference Range & Units 02/07/24 14:50 Iron 61 - 157 ug/dL 106 UIBC 112 - 347 ug/dL 89 (L) TIBC 250 - 450 ug/dL 195 (L) Iron % Saturation 20 - 55 % 54 (L): Data is abnormally low Lactic Acid: Lab Results Component Value Date/Time LACTA 2.7 02/07/2024 02:10 PM LACTA 4.2 02/07/2024 11:44 AM Troponin: Latest Reference Range & Units 02/07/24 11:44 02/07/24 12:52 02/08/24 10:00 Troponin, High Sensitivity 0 - 22 ng/L 37 (H) 37 (H) 19 (H): Data is abnormally high Latest Reference Range & Units 02/07/24 13:04 Date, Stool #1 TIMED Occult Blood, Stool #1 NEGATIVE NEGATIVE Time, Stool #1 1,304 BLOOD OCCULT STOOL DIAGNOSTIC Rpt Rpt: View report in Results Review for more information Radiology/Imaging: CT CHEST ABDOMEN PELVIS W CONTRAST Additional Contrast? None Final Result 1. Comminuted wedge compression fracture of T12 vertebral body. About 40% decrease height. Increased sclerosis of the vertebral body. Please correlate for possible pathologic fracture. 2. Small left pleural effusion. 3. 5 mm solid nodule anterior basal right lower lobe along the major fissure. No follow-up recommended. 4. 1.5 cm nonobstructing calculus in the left renal pelvis along with 4 other subcentimeter intrarenal calculi in the mid and lower pole. 5. Bilateral fat containing inguinal herniae. 6. Status post CABG. Aorta bi-iliac stent graft. Aortic valve replacement. CT LUMBAR SPINE WO CONTRAST Final Result 1. Acute comminuted fracture of the T12 vertebral body with up to 40% vertebral body height loss. 2. No acute abnormality of the lumbar spine. CT THORACIC SPINE WO CONTRAST Final Result 1. Acute comminuted fracture of the T12 vertebral body with up to 40% vertebral body height loss. 2. No acute abnormality of the lumbar spine. CT CERVICAL SPINE WO CONTRAST Final Result 1. No acute cervical spine fracture. 2. Straightening of the spine which could be related to patient positioning or muscle spasm. 3. Mild multilevel degenerative disc disease and facet arthropathy in the spine. CT Head WO Contrast Final Result No acute intracranial abnormality. Cerebral atrophy. ASSESSMENT / PLAN: MEDICAL DECISION MAKING: Primary Problem(s): Generalized weakness Differential diagnoses: anemia, compression fracture, congestive heart failure, electrolyte imbalance Condition is a chronic illness with exacerbation, progression or side effects of treatment Condition is unchanged Treatment plan: Appreciate for DC planning PT-eval and treat--TLSO Brace for Compression fracture-Refuses Up with assistance Monitor labs and replace electrolytes Telemetry Transfuse if Hgb < 6.0 Imaging: no further imaging studies ordered today Medications: Stop IVF Potassium Replacement Magnesium Replacement Calcium Gluconate 2 gm today Continue Decadron 6 mg daily x 5 dose for Compression Fx Continue Roxicodone prn for pain Continue Zofran Medication Monitoring / High Risk Medications: none Chronic Diastolic CHF / S/p TAVR November 2023 Condition is a chronic stable condition Treatment plan: Appreciate Dr to eval meds and f/u since TAVR in November. Telemetry Daily Weights I/O Monitor and replace electrolytes CPAP at HS per home routine Supplemental O2-2L per baseline Imaging: ECHO today ECHO 11/25/2023- Showed EF of 55-60%, aortic valve severely calcified with severe aortic stenosis. Post procedure the peak and mean gradients were 13 mmHg and 6 mmHg. No regurgitation was seen. 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 Treatment plan: Appreciate Hem/Onc-notes reviewed Likely r/t Liver cirrhosis Repeat Stool OB Iron, Folate, B12, Retic Count, Haptoglobin, TIBC Monitor H/H -transfuse if Hgb < 6.0 Imaging: no further imaging studies ordered today Medications: Received 2 units PRBC per ER Nutrition status: obesity, non-morbid Teacher Visually Impaired consult initiated Hospital Prophylaxis: DVT: SCD's Stress Ulcer: PPI Disposition: Shared decision making: All test results, treatment options and disposition options were discussed with the patient today Social determinants of health that may impact management: none Code status: Full Code Disposition: Discharge plan is pending [facility] Advanced Care Planning documentation: [] I have confirmed that the patient's Advance Care Plan is present, Code Status is documented, or surrogate decision maker is listed in the patient's medical record [If yes , STOP HERE] [] The patient's Advance Care Plan is NOT present because: [] I confirmed today that the patient does not wish or was not able to name a surrogate decision maker or provide and advance care plan. [] Hospice care is currently being provided or has been provided within the calendar year. [] I did NOT confirm today the presence of an Advance Care Plan or surrogate decision maker documented within the patient's medical record. [DOES NOT SATISFY [facility] PERFORMANCE] Kelsie Caba APRN - SHERIDAN , PER DIEM PHYSICAL THERAPIST ASSISTANT, RDA-C Hospitalist Medicine 02/09/2024, 9:01 AM Associated attestation - Luz Ivory MD - 02/09/2024 12:53 PM EST Images from the original note were not included. Luz Ivory M.D. Internal Medicine PA/RDA Attestation Note Patient: Brian Mandel Date of Admission: 02/07/2024 10:25 AM Date of Evaluation: 02/09/2024 I personally evaluated and examined the patient [id number] in conjunction with the PA/RDA and agree with the management and dispostition of the patient. Please see the PA/RDA's note for full details.My benoit findings are: SUBJECTIVE: Brian Mandel is a 73 y.o. male who was seen today along with Kelsie Osuna CNP for follow up of Generalized weakness. He is feeling better today. His pain is much better controlled today. He was able to walk a couple feet with PT yesterday. I discussed skilled rehab with him due to difficultyambulating and he wants to see how PT goes for him today. OBJECTIVE: Vitals: Temp: (!) 96.5 F (35.8 C) BP: 111/67 Respirations: 18 Pulse: 64 SpO2: 99 % on supplemental O2 Weight Wt Readings from Last 3 Encounters: 02/09/24 84.2 kg (185 lb 10 oz) 05/18/18 99.6 kg (219 lb 9.6 oz) Body mass index is 36.25 kg/m . 24HR INTAKE/OUTPUT: Intake/Output Summary (Last 24 hours) at 02/09/2024 1251 Last data filed at 02/09/2024 0915 Gross per 24 hour Intake 440 ml Output 1300 ml Net -860 ml Exam: GEN: Awake, alert and oriented x 3. EYES: EOMI, pupils equal NECK: Supple. No lymphadenopathy. No carotid bruit CVS: regular rate and rhythm, no audible murmur PULM: CTA, no wheezes, rales or rhonchi, no acute respiratory distress ABD: Bowels sounds normal. Abdomen is soft. No distention. no tenderness to palpation. EXT: no edema bilaterally . No calf tenderness. NEURO: Moves all extremities. Motor and sensory are grossly intact SKIN: No rashes. No skin lesions. DATA: Complete Blood Count: Recent Labs 02/07/24 1144 02/07/24 2130 02/08/24 0600 02/09/24 0605 WBC 8.0 -- 5.0 11.6* RBC 1.93* -- 2.62* 2.79* HGB 6.6* 9.0* 8.6* 9.3* HCT 19.7* 26.3* 25.3* 27.7* MCV 102.1 -- 96.6 99.3 RDW 18.0* -- 19.5* 19.2* PLT 142 -- 109* 110* Recent Labs 02/07/24 1144 02/08/24 0600 02/09/24 0605 NEUTROABS 5.52 4.35 10.67* LYMPHOPCT 17* 11* 5* LYMPHSABS 1.36 0.55* 0.58* MONOPCT 10 2* 3 BASOPCT 1 0 0 IMMGRAN 1* 0 0 Recent Blood Glucose: Recent Labs 02/07/24 1450 02/08/24 0600 02/09/24 0605 GLUCOSE 93 210* 161* Comprehensive Metabolic Profile: Recent Labs 02/07/24 1144 02/07/24 1450 02/08/24 0140 02/08/24 0600 02/09/24 0605 BUN 16 14 -- 13 17 CREATININE 1.5* 1.4* -- 1.1 1.3* NA 137 136 -- 131* 135* K 3.0* 2.8* 4.7 4.6 4.2 CL 97* 98 -- 102 103 MG 0.7* 2.5* -- -- -- CALCIUM 8.6 8.0* -- 7.8* 8.7 ANIONGAP 17* 14 -- 7* 8* CO2 23 24 -- 22 24 BILITOT 0.7 -- -- -- -- ALKPHOS 140* -- -- -- -- AST 26 -- -- -- -- ALT 10 -- -- -- -- UA: Lab Results Component Value Date COLORU Yellow 02/07/2024 WBCUA 10 TO 20 02/07/2024 RBCUA None 02/07/2024 LEUKOCYTESUR SMALL (A) 02/07/2024 BACTERIA TRACE (A) 02/07/2024 GLUCOSEU NEGATIVE 02/07/2024 KETUA TRACE (A) 02/07/2024 PROTEINU NEGATIVE 02/07/2024 HGBUR NEGATIVE 02/07/2024 Lactic Acid: Recent Labs 02/07/24 1144 02/07/24 1410 LACTA 4.2* 2.7* High Sensitivity Troponin: Recent Labs 02/07/24 1144 02/07/24 1252 02/08/24 1000 TROPHS 37* 37* 19 Microbiology / Cultures: Results Procedure Component Value Units Date/Time Culture, Urine [[id number]] (Abnormal) Collected: 02/07/24 1311 Order Status: Completed Specimen: Urine, clean catch Updated: 02/08/241926 Specimen Description .CLEAN CATCH URINE Special Requests Site: Urine Culture GRAM NEGATIVE RODS 10 to 50,000 CFU/ML Culture, Blood 2 [[id number]] Collected: 02/07/24 114 Order Status: Completed Specimen: Blood Updated: 02/09/24714 Specimen Description .BLOOD Special Requests L AC,20ML Culture NO GROWTH 2 DAYS Culture, Blood 1 [[id number]] Collected: 02/07/24 113 Order Status: Completed Specimen: Blood Updated: 02/09/24714 Specimen Description .BLOOD Special Requests R AC, 20 ML Culture NO GROWTH 2 DAYS Imaging Data: CT CHEST ABDOMEN PELVIS W CONTRAST Additional Contrast? None Result Date: 02/07/2024 EXAMINATION: CT OF THE CHEST, ABDOMEN, AND PELVIS WITH CONTRAST 02/07/2024 1:35 pm TECHNIQUE: CT ofthe chest, abdomen and pelvis was performed with the administration of intravenous contrast. Multiplanar reformatted images are provided for review. Automated exposure control, iterative reconstruction, and/or weight based adjustment of the mA/kV was utilized to reduce the radiation dose to as low as reasonably achievable. COMPARISON: None HISTORY: ORDERING SYSTEM PROVIDED HISTORY: sob cp and abdpain TECHNOLOGIST PROVIDED HISTORY: sob cp and abd pain Decision Support Exception - unselect if not a suspected or confirmed emergency medical condition->Emergency Medical Condition (MA) FINDINGS: Chest: Mediastinum: The cardiac size is normal. Aortic valve repair. Status post CABG. There is nosignificant mediastinal, hilar or axillary lymphadenopathy. The thyroid gland shows no significant abnormalities. The esophagus shows no significant abnormalities. Lungs/pleura: Small left pleural effusion minor bibasilar pleuroparenchymal densities representing subsegmental atelectasis. 5 mm solidnodule anterior basal right lower lobe along the major fissure series 3, image 58. No routine follow-up imaging is recommended. Soft Tissues/Bones: Comminuted wedge compression fracture of T12 vertebral body. About 40% decrease height. Increased sclerosis of the vertebral body. Please correlate forpossible pathologic fracture. Abdomen/Pelvis: Organs: There is 1.5 cm nonobstructing calculus in the left renal pelvis along with 4 other subcentimeter intrarenal calculi in the mid and lower pole. Right kidney is unremarkable. Liver, spleen, pancreas, adrenal glands and gallbladder show no acute process. GI/Bowel: There is limited evaluation due to absence of oral contrast. Stomach collapsed otherwise unremarkable. No bowel obstruction. No acute infective process in the GI tract. Pelvis: Prostate calcifications. Urinary bladder unremarkable. Peritoneum/Retroperitoneum: Aorta bi-iliac stent graft. No ascites. No significant lymphadenopathy. Bones/Soft Tissues: Bilateral fat containing inguinal herniae. 1. Comminuted wedge compression fracture of T12 vertebral body. About 40% decrease height. Increased sclerosis of the vertebral body. Please correlate for possible pathologic fracture. 2. Small left pleural effusion. 3. 5 mm solid nodule anterior basal right lower lobe along the major fissure. No follow-up recommended. 4. 1.5 cm nonobstructing calculus in the left renal pelvis along with 4 other subcentimeter intrarenal calculi in the mid and lower pole. 5. Bilateral fat containing inguinal herniae. 6. Status post CABG. Aorta bi-iliac stent graft. Aortic valve replacement. CT CERVICAL SPINE WO CONTRAST Result Date: 02/07/2024 EXAMINATION: CT OF THE CERVICAL SPINE WITHOUT CONTRAST 02/07/2024 12:36 pm TECHNIQUE: CT of the cervical spine was performed without the administration of intravenous contrast. Multiplanar reformatted images are provided for review. Automated exposure control, iterative reconstruction, and/or weight based adjustment of the mA/kV was utilized to reduce the radiation dose to as low as reasonably achievable. COMPARISON: None. HISTORY: ORDERING SYSTEM PROVIDED HISTORY: fall LOC pain TECHNOLOGIST PROVIDED HISTORY: fall LOC pain Decision Support Exception - unselect if not a suspected or confirmed emergency medical condition->Emergency Medical Condition (MA) FINDINGS: BONES/ALIGNMENT: The spine is straightened and normally aligned. Multiple ligamentous calcifications are noted posteriorly. C1 and C2 have a normal relationship. There is no acute fracture. DEGENERATIVE CHANGES: There is mildmultilevel degenerative disc disease and facet arthropathy in the spine. No central canal narrowingis identified. SOFT TISSUES: There is no prevertebral soft tissue swelling. 1. No acute cervical spine fracture. 2. Straightening of the spine which could be related to patient positioning or muscle spasm. 3. Mild multilevel degenerative disc disease and facet arthropathy inthe spine. CT THORACIC SPINE WO CONTRAST Result Date: 02/07/2024 EXAMINATION: CT OF THE THORACIC SPINE WITHOUT CONTRAST; CT OF THE LUMBAR SPINE WITHOUT CONTRAST 02/07/2024 1:36 pm: TECHNIQUE: CT of the thoracic spine and the lumbar spine was performed without the administration of intravenous contrast. Multiplanar reformatted images are provided for review. Adjustment of mA and/or kV according to patient size was utilized. Automated exposure control, iterative reconstruction, and/or weight based adjustment of the mA/kV was utilized to reduce the radiation dose to as low as reasonably achievable. COMPARISON: None. HISTORY: Acute back pain status post fall. FINDINGS: THORACIC SPINE: Acute comminuted fracture of the T12 vertebral body with up to 40% vertebral body height loss but no retropulsion into the spinal canal. Fracture fragments abut the posteriormargin of the abdominal aorta. No spondylolisthesis. Remainder of the thoracic spine is unremarkable. LUMBAR SPINE: No acute fracture. Vertebral body heights are maintained. No spondylolisthesis. Scattered degenerative changes, greatest at L5-S1. SOFT TISSUES: Small left pleural effusion. Severe atherosclerotic disease. Status post EVAR. 1 cm left renal stone. 1. Acute comminuted fracture of the T12 vertebral body with up to 40% vertebral body height loss. 2. No acute abnormality of the lumbar spine. CT LUMBAR SPINE WO CONTRAST Result Date: 02/07/2024 EXAMINATION: CT OF THE THORACIC SPINE WITHOUT CONTRAST; CT OF THE LUMBAR SPINE WITHOUT CONTRAST 02/07/2024 1:36 pm: TECHNIQUE: CT of the thoracic spine and the lumbar spine was performed without the administration of intravenous contrast. Multiplanar reformatted images are provided for review. Adjustment of mA and/or kV according to patient size was utilized. Automated exposure control, iterative reconstruction, and/or weight based adjustment of the mA/kV was utilized to reduce the radiation dose to as low as reasonably achievable. COMPARISON: None. HISTORY: Acute back pain status post fall. FINDINGS: THORACIC SPINE: Acute comminuted fracture of the T12 vertebral body with up to 40% vertebral body height loss but no retropulsion into the spinal canal. Fracture fragments abut the posteriormargin of the abdominal aorta. No spondylolisthesis. Remainder of the thoracic spine is unremarkable. LUMBAR SPINE: No acute fracture. Vertebral body heights are maintained. No spondylolisthesis. Scattered degenerative changes, greatest at L5-S1. SOFT TISSUES: Small left pleural effusion. Severe atherosclerotic disease. Status post EVAR. 1 cm left renal stone. 1. Acute comminuted fracture of the T12 vertebral body with up to 40% vertebral body height loss. 2. No acute abnormality of the lumbar spine. CT Head WO Contrast Result Date: 02/07/2024 EXAMINATION: CT OF THE HEAD WITHOUT CONTRAST 02/07/2024 1:36 pm TECHNIQUE: CT of the head was performed without the administration of intravenous contrast. Automated exposure control, iterative reconstruction, and/or weight based adjustment of the mA/kV was utilized to reduce the radiation dose to as low as reasonably achievable. COMPARISON: None. HISTORY: ORDERING SYSTEM PROVIDED HISTORY: LOC TECHNOLOGIST PROVIDED HISTORY: Loc Decision Support Exception - unselect if not a suspected or confirmed emergency medical condition->Emergency Medical Condition (MA) FINDINGS: BRAIN/VENTRICLES: There is prominence of the ventricles and cortical sulci consistent with cortical volume loss. No midline shift. Basal cisterns are normally outlined. There is no evidence for acute infarct. No acute intra or extra-axial hemorrhage. ORBITS: The visualized portion of the orbits demonstrate no acute abnormality. SINUSES: The visualized paranasal sinuses and mastoid air cells demonstrate no acute abnormality. SOFT TISSUES/SKULL: No acute abnormality of the visualized skull or soft tissues. No acute intracranial abnormality. Cerebral atrophy. ASSESSMENT / PLAN: I agree with the assessment, plan and medical decision making documentation as outlined by PA/RDA below: Comminuted T12 vertebral wedge fracture with 40% disc height loss causing weakness and difficulty ambulating Condition is stable Treatment plan: PT / OT consults Fall precautions / up with assist TLSO brace ordered - pt refused Imaging: no further imaging studies ordered today Medications: Continue Decadron 6 mg QD x 5 days Continue Roxicodone prn pain Chronic diastolic CHF s/p TAVR 11/2023 Condition is a chronic stable condition Treatment plan: Cardiology consult appreciated Medications: Continue Metoprolol SARAH Treatment plan: Home CPAP Anemia Treatment plan: Heme/Onc consult requested Labs: CBC with diff, Iron, Folate, B12, Reticulocyt count, Haptoglobin, Iron studies Transfuse if Hb < 6 Medications: Received 2 u PRBC in ER Nutrition status: at risk for malnutrition due to current illness Teacher Visually Impaired consult appreciated Hospital Prophylaxis: DVT: SCD's Stress Ulcer: H2 Cassi Medication monitoring / High risk medications: none Disposition: Discharge plan is pending - may need SNF is still not able to ambulate well due to pain SHARED APC VISIT, PHYSICIAN ATTESTATION: [id number] I personally performed a substantive part of the MDM during the patient's visit. I personally evaluated and examined the patient. I personally made or approved the documented management plan and acknowledge its risk of complications. Test interpretation: My independent EKG interpretation: Sinus tachycardia with 1st degree AV block My independent imaging interpretation: not applicable Management and/or test interpretation discussed with SHERIDAN Laureano MD , MSmitha. 02/09/2024 12:51 PM * Kianna Cornejo RN - 02/09/2024 8:11 AM EST Director Of Brand Marketing to bedside to complete morning assessment. Upon entry to room, pt awake and lying in bed, respirations even and unlabored while on 3L/min NC. Vitals obtained and assessment completed, see flowsheet for details. Pt denies needs from investigative writer at this time. Call light in reach. Care ongoing. * Charlene Johnson RN - 02/08/2024 6:38 PM EST Patient lying semi fowlers in bed with CPAP on at this time watching television. Vital signs and assessment completed. See flowsheets. Prn Roxicodone PO given for 08/30 chronic back pain. Patient expresses comfort in bed. SCDs on. Patient denies any other needs at this time. Call light, bedside table and personal belongings within reach. * Charlene Johnson RN - 02/08/2024 6:[address] Roy at bedside with patient at this time. * Rachelle Deleon PTA - 02/08/2024 1:42 PM EST Physical Therapy Facility/Department: [facility] Daily Treatment Note NAME: Brian Mandel : 1950 Date of Service: 02/08/2024 Discharge Recommendations: Continue to assess pending progress, Home with assist PRN, Home independently Patient Diagnosis(es): The primary encounter diagnosis was Acute cystitis with hematuria. Diagnosesof Kidney stone, Recurrent left pleural effusion, Anemia requiring transfusions, Hypomagnesemia, Hypokalemia, and T12 compression fracture, sequela were also pertinent to this visit. Assessment Assessment: Pt reports increased LBP and also just returned to bed at this time, so requesting to perform only supine ther ex. Pt instructed in and performed supine BLE ther ex x15-20 reps in all available planes of motion to increase BLE strength required for improved transfers and gait. Short rest breaks provided between ther ex secondary to SOB/fatigue. Activity Tolerance: Patient limited by pain Plan Physical Therapy Plan General Plan: 2 times a day 7 days a week Specific Instructions for Next Treatment: Once daily on weekends Current Treatment Recommendations: Strengthening;ROM;Balance training;Functional mobility training;Transfer training;Neuromuscular re-education;Stair training;Gait training;Home exercise program;Safety education & training;Patient/Caregiver education & training;Manual;Therapeutic activities; Endurance training Restrictions Restrictions/Precautions Restrictions/Precautions: Fall Risk, General Precautions Subjective Orientation Overall Orientation Status: Within Functional Limits Cognition Overall Cognitive Status: WFL Objective Bed Mobility Training Bed Mobility Training: No Transfer Training Transfer Training: No Gait Gait Training: No PT Exercises Exercise Treatment: Supine BLE ther ex x15-20 reps in all available planes of motion Safety Devices Type of Devices: All niyah prominences offloaded;Patient at risk for falls;All fall risk precautions in place;Call light within reach;Nurse notified;Left in bed;Bed alarm in place Goals Short Term Goals Time Frame for Short Term Goals: 20 days Short Term Goal 1: Patient to complete all transfers with SUP and no LOB to decrease fall risk. Short Term Goal 2: Patient to ambulate 50ftx2 with FWW and SUP with no LOB or increased pain to improve mobility. Short Term Goal 3: Patient to ascend/descend 4 steps with HRx1 and SUP with no LOB to safely enter his home. Short Term Goal 4: Patient to tolerate 20-30 min of ther ex/act for improved functional strength. Education Patient Education Education Given To: Patient Education Provided: Role of Therapy;Plan of Care;Transfer Training Education Method: Verbal Barriers to Learning: None Education Outcome: Verbalized understanding;Continued education needed Therapy Time Individual Concurrent Group Co-treatment Time In 1318 Time Out 1338 Minutes 20 Timed Code Treatment Minutes: 18 Minutes Rachelle Deleon PTA * Filomena Crespo RPH - 02/08/2024 11:53 AM EST Images from the original note were not included. [facility] Department of Pharmacy Pharmacy Renal Adjustment Note Brian Mandel is a 73 y.o. male. Pharmacist assessment of renally cleared medications. Recent Labs 02/07/24 1144 02/07/24 1450 02/08/24 0600 CREATININE 1.5* 1.4* 1.1 Estimated Creatinine Clearance: 53 mL/min (based on SCr of 1.1 mg/dL). Height: Ht Readings from Last 1 Encounters: 02/08/24 1.524 m (5') Weight: Wt Readings from Last 1 Encounters: 02/08/24 84.9 kg (187 lb 3.2 oz) The following medication(s) have been adjusted based upon renal function: Pepcid adjusted to once daily for Crcl < 60 ml/min. Filomena Crespo RPH,02/08/2024,11:53 AM * Henna Valera RN - 02/08/2024 11:53 AM EST Consult to Dr. Roy was completed. Director Of Brand Marketing spoke with office. * Kelsie Caba APRN - SHERIDAN - 02/08/2024 9:37 AM EST Progress Note SUBJECTIVE: Patient seen for f/u of Generalized weakness. He sitting up in chair no distress. Feels better. No further n/v. Pain controlled. ROS: Constitutional: negative for fevers, and negative for chills. Respiratory: negative for shortness of breath, negative for cough, and negative for wheezing Cardiovascular: negative for chest pain, and negative for palpitations Gastrointestinal: negative for abdominal pain, negative for nausea,negative for vomiting, negative for diarrhea, and negative for constipation All other systems were reviewed with the patient and are negative unless otherwise stated in HPI OBJECTIVE: Vitals: Vitals: 02/08/24 0903 BP: Pulse: Resp: 20 Temp: SpO2: Weight - Scale: 84.9 kg (187 lb 3.2 oz) Height: 152.4 cm (5') Weight Wt Readings from Last 3 Encounters: 02/08/24 84.9 kg (187 lb 3.2 oz) 05/18/18 99.6 kg (219 lb 9.6 oz) Body mass index is 36.56 kg/m . 24HR INTAKE/OUTPUT: Intake/Output Summary (Last 24 hours) at 02/08/2024 0937 Last data filed at 02/08/2024 0738 Gross per 24 hour Intake 981.83 ml Output 750 ml Net 231.83 ml Exam: GEN: Awake, alert and oriented x3. EYES: EOMI, pupils equal NECK: Supple. No lymphadenopathy. No carotid bruit CVS: regular rate and rhythm, no audible murmur PULM: CTA, no wheezes, rales or rhonchi, no acute respiratory distress ABD: Bowels sounds normal. Abdomen is soft. No distention. no tenderness to palpation. EXT: no edema bilaterally . No calf tenderness. NEURO: Moves all extremities. Motor and sensory are grossly intact SKIN: No rashes. No skin lesions. Diagnostic Data: Complete Blood Count: Recent Labs 02/07/24 1144 02/07/24 2130 02/08/24 0600 WBC 8.0 -- 5.0 RBC 1.93* -- 2.62* HGB 6.6* 9.0* 8.6* HCT 19.7* 26.3* 25.3* MCV 102.1 -- 96.6 MCH 34.2* -- 32.8 MCHC 33.5 -- 34.0 RDW 18.0* -- 19.5* PLT 142 -- 109* MPV 11.9 -- 11.4 Last 3 Blood Glucose: Recent Labs 02/07/24 1144 02/07/24 1450 02/08/24 0600 GLUCOSE 90 93 210* Comprehensive Metabolic Profile: Recent Labs 02/07/24 1144 02/07/24 1450 02/08/24 0140 02/08/24 0600 NA 137 136 -- 131* K 3.0* 2.8* 4.7 4.6 CL 97* 98 -- 102 CO2 23 24 -- 22 BUN 16 14 -- 13 CREATININE 1.5* 1.4* -- 1.1 GLUCOSE 90 93 -- 210* CALCIUM 8.6 8.0* -- 7.8* BILITOT 0.7 -- -- -- ALKPHOS 140* -- -- -- AST 26 -- -- -- ALT 10 -- -- -- Urinalysis: Lab Results Component Value Date/Time NITRU NEGATIVE 02/07/2024 01:11 PM COLORU Yellow 02/07/2024 01:11 PM PHUR 6.5 02/07/2024 01:11 PM WBCUA 10 TO 20 02/07/2024 01:11 PM RBCUA None 02/07/2024 01:11 PM BACTERIA TRACE 02/07/2024 01:11 PM LEUKOCYTESUR SMALL 02/07/2024 01:11 PM UROBILINOGEN Normal 02/07/2024 01:11 PM BILIRUBINUR NEGATIVE 02/07/2024 01:11 PM GLUCOSEU NEGATIVE 02/07/2024 01:11 PM KETUA TRACE 02/07/2024 01:11 PM Latest Reference Range & Units 02/07/24 14:50 Iron 61 - 157 ug/dL 106 UIBC 112 - 347 ug/dL 89 (L) TIBC 250 - 450 ug/dL 195 (L) Iron % Saturation 20 - 55 % 54 (L): Data is abnormally low Lactic Acid: Lab Results Component Value Date/Time LACTA 2.7 02/07/2024 02:10 PM LACTA 4.2 02/07/2024 11:44 AM Troponin: Latest Reference Range & Units 02/07/24 11:44 02/07/24 12:52 02/08/24 10:00 Troponin, High Sensitivity 0 - 22 ng/L 37 (H) 37 (H) 19 (H): Data is abnormally high Latest Reference Range & Units 02/07/24 13:04 Date, Stool #1 TIMED Occult Blood, Stool #1 NEGATIVE NEGATIVE Time, Stool #1 1,304 BLOOD OCCULT STOOL DIAGNOSTIC Rpt Rpt: View report in Results Review for more information Radiology/Imaging: CT CHEST ABDOMEN PELVIS W CONTRAST Additional Contrast? None Final Result 1. Comminuted wedge compression fracture of T12 vertebral body. About 40% decrease height. Increased sclerosis of the vertebral body. Please correlate for possible pathologic fracture. 2. Small left pleural effusion. 3. 5 mm solid nodule anterior basal right lower lobe along the major fissure. No follow-up recommended. 4. 1.5 cm nonobstructing calculus in the left renal pelvis along with 4 other subcentimeter intrarenal calculi in the mid and lower pole. 5. Bilateral fat containing inguinal herniae. 6. Status post CABG. Aorta bi-iliac stent graft. Aortic valve replacement. CT LUMBAR SPINE WO CONTRAST Final Result 1. Acute comminuted fracture of the T12 vertebral body with up to 40% vertebral body height loss. 2. No acute abnormality of the lumbar spine. CT THORACIC SPINE WO CONTRAST Final Result 1. Acute comminuted fracture of the T12 vertebral body with up to 40% vertebral body height loss. 2. No acute abnormality of the lumbar spine. CT CERVICAL SPINE WO CONTRAST Final Result 1. No acute cervical spine fracture. 2. Straightening of the spine which could be related to patient positioning or muscle spasm. 3. Mild multilevel degenerative disc disease and facet arthropathy in the spine. CT Head WO Contrast Final Result No acute intracranial abnormality. Cerebral atrophy. ASSESSMENT / PLAN: MEDICAL DECISION MAKING: Primary Problem(s): Generalized weakness Differential diagnoses: anemia, compression fracture, congestive heart failure, electrolyte imbalance Condition is a chronic illness with exacerbation, progression or side effects of treatment Condition is unchanged Treatment plan: Appreciate SS for DC planning PT-eval and treat--TLSO Brace for Compression fracture-Refuses Up with assistance Monitor labs and replace electrolytes Telemetry Transfuse if Hgb < 6.0 Imaging: no further imaging studies ordered today Medications: Stop IVF Potassium Replacement Magnesium Replacement Calcium Gluconate 2 gm today Continue Decadron 6 mg daily x 5 dose for Compression Fx Continue Roxicodone prn for pain Continue Zofran Medication Monitoring / High Risk Medications: none Chronic Diastolic CHF / S/p TAVR November 2023 Condition is a chronic stable condition Treatment plan: Appreciate Cardiology to eval meds and f/u since TAVR in November. Telemetry Daily Weights I/O Monitor and replace electrolytes CPAP at HS per home routine Supplemental O2-2L per baseline Imaging: ECHO 11/25/2023- Showed EF of 55-60%, aortic valve severely calcified with severe aortic stenosis. Post procedure the peak and mean gradients were 13 mmHg and 6 mmHg. No regurgitation was seen. 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 Treatment plan: Appreciate Hem/Onc Repeat Stool OB Iron, Folate, B12, Retic Count, Haptoglobin, TIBC Monitor H/H -transfuse if Hgb < 6.0 Imaging: no further imaging studies ordered today Medications: Received 2 units PRBC per ER Nutrition status: obesity, non-morbid Teacher Visually Impaired consult initiated Hospital Prophylaxis: DVT: SCD's Stress Ulcer: PPI Disposition: Shared decision making: All test results, treatment options and disposition options were discussed with the patient today Social determinants of health that may impact management: none Code status: Full Code Disposition: Discharge plan is pending [facility] Advanced Care Planning documentation: [] I have confirmed that the patient's Advance Care Plan is present, Code Status is documented, or surrogate decision maker is listed in the patient's medical record [If yes , STOP HERE] [] The patient's Advance Care Plan is NOT present because: [] I confirmed today that the patient does not wish or was not able to name a surrogate decision maker or provide and advance care plan. [] Hospice care is currently being provided or has been provided within the calendar year. [] I did NOT confirm today the presence of an Advance Care Plan or surrogate decision maker documented within the patient's medical record. [DOES NOT SATISFY [facility] PERFORMANCE] Kelsie Osuna-SPENCER Aguilar - SHERIDAN , SPENCER, RDA[facility] 02/08/2024, 9:37 AM Associated attestation - Luz Ivory MD - 02/08/2024 5:30 PM EST Luz Ivory M.D. Internal Medicine PA/RDA Attestation Note Patient: Brian Mandel Date of Admission: 02/07/2024 10:25 AM Date of Evaluation: 02/08/2024 I personally evaluated and examined the patient [id number] in conjunction with the PA/RDA and agree with the management and dispostition of the patient. Please see the PA/RDA's note for full details.My benoit findings are: SUBJECTIVE: Brian Mandel is a 73 y.o. male who was seen today along with Kelsie Osuna CNP for follow up of Generalized weakness. He is feeling better today. His pain is much better controlled today. He states the TSLO brace ordered would not fit properly and he just ordered a back brace [facility]ought [employer] which is adjustable and should be coming in the next day or two. OBJECTIVE: Vitals: Temp: 97.2 F (36.2 C) BP: (!) 97/57 Respirations: 20 Pulse: 65 SpO2: 97 % on supplemental O2 Weight Wt Readings from Last 3 Encounters: 02/08/24 84.9 kg (187 lb 3.2 oz) 05/18/18 99.6 kg (219 lb 9.6 oz) Body mass index is 36.56 kg/m . 24HR INTAKE/OUTPUT: Intake/Output Summary (Last 24 hours) at 02/08/2024 1718 Last data filed at 02/08/2024 1233 Gross per 24 hour Intake 1083 ml Output 850 ml Net 233 ml Exam: GEN: Awake, alert and oriented x 3. EYES: EOMI, pupils equal NECK: Supple. No lymphadenopathy. No carotid bruit CVS: regular rate and rhythm, no audible murmur PULM: CTA, no wheezes, rales or rhonchi, no acute respiratory distress ABD: Bowels sounds normal. Abdomen is soft. No distention. no tenderness to palpation. EXT: no edema bilaterally . No calf tenderness. NEURO: Moves all extremities. Motor and sensory are grossly intact SKIN: No rashes. No skin lesions. DATA: Complete Blood Count: Recent Labs 02/07/24 1144 02/07/24 2130 02/08/24 0600 WBC 8.0 -- 5.0 RBC 1.93* -- 2.62* HGB 6.6* 9.0* 8.6* HCT 19.7* 26.3* 25.3* MCV 102.1 -- 96.6 RDW 18.0* -- 19.5* PLT 142 -- 109* Recent Labs 02/07/24 1144 02/08/24 0600 NEUTROABS 5.52 4.35 LYMPHOPCT 17* 11* LYMPHSABS 1.36 0.55* MONOPCT 10 2* BASOPCT 1 0 IMMGRAN 1* 0 Recent Blood Glucose: Recent Labs 02/07/24 1144 02/07/24 1450 02/08/24 0600 GLUCOSE 90 93 210* Comprehensive Metabolic Profile: Recent Labs 02/07/24 1144 02/07/24 1450 02/08/24 0140 02/08/24 0600 BUN 16 14 -- 13 CREATININE 1.5* 1.4* -- 1.1 NA 137 136 -- 131* K 3.0* 2.8* 4.7 4.6 CL 97* 98 -- 102 MG 0.7* 2.5* -- -- CALCIUM 8.6 8.0* -- 7.8* ANIONGAP 17* 14 -- 7* CO2 23 24 -- 22 BILITOT 0.7 -- -- -- ALKPHOS 140* -- -- -- AST 26 -- -- -- ALT 10 -- -- -- UA: Lab Results Component Value Date COLORU Yellow 02/07/2024 WBCUA 10 TO 20 02/07/2024 RBCUA None 02/07/2024 LEUKOCYTESUR SMALL (A) 02/07/2024 BACTERIA TRACE (A) 02/07/2024 GLUCOSEU NEGATIVE 02/07/2024 KETUA TRACE (A) 02/07/2024 PROTEINU NEGATIVE 02/07/2024 HGBUR NEGATIVE 02/07/2024 Lactic Acid: Recent Labs 02/07/24 1144 02/07/24 1410 LACTA 4.2* 2.7* High Sensitivity Troponin: Recent Labs 02/07/24 1144 02/07/24 1252 02/08/24 1000 TROPHS 37* 37* 19 Microbiology / Cultures: Results Procedure Component Value Units Date/Time Culture, Urine [[id number]] Collected: 02/07/24 1311 Order Status: Sent Specimen: Urine, clean catch Updated: 02/07/24 1354 Culture, Blood 2 [[id number]] Collected: 02/07/24 1144 Order Status: Completed Specimen: Blood Updated: 02/08/24 0715 Specimen Description .BLOOD Special Requests L AC,20ML Culture NO GROWTH 19 HOURS Culture, Blood 1 [[id number]] Collected: 02/07/24 1134 Order Status: Completed Specimen: Blood Updated: 02/08/24 0715 Specimen Description .BLOOD Special Requests R AC, 20 ML Culture NO GROWTH 19 HOURS Imaging Data: CT CHEST ABDOMEN PELVIS W CONTRAST Additional Contrast? None Result Date: 02/07/2024 EXAMINATION: CT OF THE CHEST, ABDOMEN, AND PELVIS WITH CONTRAST 02/07/2024 1:35 pm TECHNIQUE: CT ofthe chest, abdomen and pelvis was performed with the administration of intravenous contrast. Multiplanar reformatted images are provided for review. Automated exposure control, iterative reconstruction, and/or weight based adjustment of the mA/kV was utilized to reduce the radiation dose to as low as reasonably achievable. COMPARISON: None HISTORY: ORDERING SYSTEM PROVIDED HISTORY: manuela feliz and conniepain TECHNOLOGIST PROVIDED HISTORY: sob cp and abd pain Decision Support Exception - unselect if not a suspected or confirmed emergency medical condition->Emergency Medical Condition (MA) FINDINGS: Chest: Mediastinum: The cardiac size is normal. Aortic valve repair. Status post CABG. There is nosignificant mediastinal, hilar or axillary lymphadenopathy. The thyroid gland shows no significant abnormalities. The esophagus shows no significant abnormalities. Lungs/pleura: Small left pleural effusion minor bibasilar pleuroparenchymal densities representing subsegmental atelectasis. 5 mm solidnodule anterior basal right lower lobe along the major fissure series 3, image 58. No routine follow-up imaging is recommended. Soft Tissues/Bones: Comminuted wedge compression fracture of T12 vertebral body. About 40% decrease height. Increased sclerosis of the vertebral body. Please correlate forpossible pathologic fracture. Abdomen/Pelvis: Organs: There is 1.5 cm nonobstructing calculus in the left renal pelvis along with 4 other subcentimeter intrarenal calculi in the mid and lower pole. Right kidney is unremarkable. Liver, spleen, pancreas, adrenal glands and gallbladder show no acute process. GI/Bowel: There is limited evaluation due to absence of oral contrast. Stomach collapsed otherwise unremarkable. No bowel obstruction. No acute infective process in the GI tract. Pelvis: Prostate calcifications. Urinary bladder unremarkable. Peritoneum/Retroperitoneum: Aorta bi-iliac stent graft. No ascites. No significant lymphadenopathy. Bones/Soft Tissues: Bilateral fat containing inguinal herniae. 1. Comminuted wedge compression fracture of T12 vertebral body. About 40% decrease height. Increased sclerosis of the vertebral body. Please correlate for possible pathologic fracture. 2. Small left pleural effusion. 3. 5 mm solid nodule anterior basal right lower lobe along the major fissure. No follow-up recommended. 4. 1.5 cm nonobstructing calculus in the left renal pelvis along with 4 other subcentimeter intrarenal calculi in the mid and lower pole. 5. Bilateral fat containing inguinal herniae. 6. Status post CABG. Aorta bi-iliac stent graft. Aortic valve replacement. CT CERVICAL SPINE WO CONTRAST Result Date: 02/07/2024 EXAMINATION: CT OF THE CERVICAL SPINE WITHOUT CONTRAST 02/07/2024 12:36 pm TECHNIQUE: CT of the cervical spine was performed without the administration of intravenous contrast. Multiplanar reformatted images are provided for review. Automated exposure control, iterative reconstruction, and/or weight based adjustment of the mA/kV was utilized to reduce the radiation dose to as low as reasonably achievable. COMPARISON: None. HISTORY: ORDERING SYSTEM PROVIDED HISTORY: fall LOC pain TECHNOLOGIST PROVIDED HISTORY: fall LOC pain Decision Support Exception - unselect if not a suspected or confirmed emergency medical condition->Emergency Medical Condition (MA) FINDINGS: BONES/ALIGNMENT: The spine is straightened and normally aligned. Multiple ligamentous calcifications are noted posteriorly. C1 and C2 have a normal relationship. There is no acute fracture. DEGENERATIVE CHANGES: There is mildmultilevel degenerative disc disease and facet arthropathy in the spine. No central canal narrowingis identified. SOFT TISSUES: There is no prevertebral soft tissue swelling. 1. No acute cervical spine fracture. 2. Straightening of the spine which could be related to patient positioning or muscle spasm. 3. Mild multilevel degenerative disc disease and facet arthropathy inthe spine. CT THORACIC SPINE WO CONTRAST Result Date: 02/07/2024 EXAMINATION: CT OF THE THORACIC SPINE WITHOUT CONTRAST; CT OF THE LUMBAR SPINE WITHOUT CONTRAST 02/07/2024 1:36 pm: TECHNIQUE: CT of the thoracic spine and the lumbar spine was performed without the administration of intravenous contrast. Multiplanar reformatted images are provided for review. Adjustment of mA and/or kV according to patient size was utilized. Automated exposure control, iterative reconstruction, and/or weight based adjustment of the mA/kV was utilized to reduce the radiation dose to as low as reasonably achievable. COMPARISON: None. HISTORY: Acute back pain status post fall. FINDINGS: THORACIC SPINE: Acute comminuted fracture of the T12 vertebral body with up to 40% vertebral body height loss but no retropulsion into the spinal canal. Fracture fragments abut the posteriormargin of the abdominal aorta. No spondylolisthesis. Remainder of the thoracic spine is unremarkable. LUMBAR SPINE: No acute fracture. Vertebral body heights are maintained. No spondylolisthesis. Scattered degenerative changes, greatest at L5-S1. SOFT TISSUES: Small left pleural effusion. Severe atherosclerotic disease. Status post EVAR. 1 cm left renal stone. 1. Acute comminuted fracture of the T12 vertebral body with up to 40% vertebral body height loss. 2. No acute abnormality of the lumbar spine. CT LUMBAR SPINE WO CONTRAST Result Date: 02/07/2024 EXAMINATION: CT OF THE THORACIC SPINE WITHOUT CONTRAST; CT OF THE LUMBAR SPINE WITHOUT CONTRAST 02/07/2024 1:36 pm: TECHNIQUE: CT of the thoracic spine and the lumbar spine was performed without the administration of intravenous contrast. Multiplanar reformatted images are provided for review. Adjustment of mA and/or kV according to patient size was utilized. Automated exposure control, iterative reconstruction, and/or weight based adjustment of the mA/kV was utilized to reduce the radiation dose to as low as reasonably achievable. COMPARISON: None. HISTORY: Acute back pain status post fall. FINDINGS: THORACIC SPINE: Acute comminuted fracture of the T12 vertebral body with up to 40% vertebral body height loss but no retropulsion into the spinal canal. Fracture fragments abut the posteriormargin of the abdominal aorta. No spondylolisthesis. Remainder of the thoracic spine is unremarkable. LUMBAR SPINE: No acute fracture. Vertebral body heights are maintained. No spondylolisthesis. Scattered degenerative changes, greatest at L5-S1. SOFT TISSUES: Small left pleural effusion. Severe atherosclerotic disease. Status post EVAR. 1 cm left renal stone. 1. Acute comminuted fracture of the T12 vertebral body with up to 40% vertebral body height loss. 2. No acute abnormality of the lumbar spine. CT Head WO Contrast Result Date: 02/07/2024 EXAMINATION: CT OF THE HEAD WITHOUT CONTRAST 02/07/2024 1:36 pm TECHNIQUE: CT of the head was performed without the administration of intravenous contrast. Automated exposure control, iterative reconstruction, and/or weight based adjustment of the mA/kV was utilized to reduce the radiation dose to as low as reasonably achievable. COMPARISON: None. HISTORY: ORDERING SYSTEM PROVIDED HISTORY: LOC TECHNOLOGIST PROVIDED HISTORY: Loc Decision Support Exception - unselect if not a suspected or confirmed emergency medical condition->Emergency Medical Condition (MA) FINDINGS: BRAIN/VENTRICLES: There is prominence of the ventricles and cortical sulci consistent with cortical volume loss. No midline shift. Basal cisterns are normally outlined. There is no evidence for acute infarct. No acute intra or extra-axial hemorrhage. ORBITS: The visualized portion of the orbits demonstrate no acute abnormality. SINUSES: The visualized paranasal sinuses and mastoid air cells demonstrate no acute abnormality. SOFT TISSUES/SKULL: No acute abnormality of the visualized skull or soft tissues. No acute intracranial abnormality. Cerebral atrophy. ASSESSMENT / PLAN: I agree with the assessment, plan and medical decision making documentation as outlined by PA/RDA below: Comminuted T12 vertebral wedge fracture with 40% disc height loss causing weakness and difficulty ambulating Condition is stable Treatment plan: PT / OT consults Fall precautions / up with assist TLSO brace ordered - pt refused Imaging: no further imaging studies ordered today Medications: Continue Decadron 6 mg QD x 5 days Continue Roxicodone prn pain Chronic diastolic CHF s/p TAVR 11/2023 Condition is a chronic stable condition Treatment plan: Cardiology consult appreciated Medications: Continue Metoprolol SARAH Treatment plan: Home CPAP Anemia Treatment plan: Heme/Onc consult requested Labs: CBC with diff, Iron, Folate, B12, Reticulocyt count, Haptoglobin, Iron studies Transfuse if Hb < 6 Medications: Received 2 u PRBC in ER Nutrition status: at risk for malnutrition due to current illness Teacher Visually Impaired consult appreciated Hospital Prophylaxis: DVT: SCD's Stress Ulcer: H2 Cassi Medication monitoring / High risk medications: none Disposition: Discharge plan is pending SHARED APC VISIT, PHYSICIAN ATTESTATION: [id number] I personally performed a substantive part of the MDM during the patient's visit. I personally evaluated and examined the patient. I personally made or approved the documented management plan and acknowledge its risk of complications. Test interpretation: My independent EKG interpretation: Sinus tachycardia with 1st degree AV block My independent imaging interpretation: not applicable Management and/or test interpretation discussed with Kelsie Osuna, SHERIDAN Ivory MD , M.Willis. 02/08/2024 5:18 PM * Henna Valera RN - 02/08/2024 7:26 AM EST Director Of Brand Marketing to bedside to complete morning assessment. Upon entry to room, pt alert in beding, respirations even while on CPAP. Vitals obtained and assessment completed, see flow sheet for details. Pt denies needs from investigative writer at this time. Call light in reach. Care ongoing. * Mani Ellis RD, LD - 02/08/2024 6:16 AM EST Comprehensive Nutrition Assessment Type and Reason for Visit: Initial, Positive nutrition screen Nutrition Recommendations/Plan: Monitor PO advancement and education needs. Monitor glucose on steroid. Malnutrition Assessment: Malnutrition Status: At risk for malnutrition (02/08/24 0739) Context: Acute Illness Findings of the 6 clinical characteristics of malnutrition: Energy Intake: Mild decrease in energy intake (on liquid diet) Weight Loss: No weight loss Body Fat Loss: No body fat loss Muscle Mass Loss: No muscle mass loss Fluid Accumulation: Mild Extremities Supply Chain Logistics Manager Strength: Not Performed Nutrition Assessment: Altered nutrition related labs r/t endocrine dysfunction, AEB hyperglycemia in presence of steroid.Anemia post 2 Units PRBC. Improving Mg++ and K+. Kidney stones with pain upon urination and T12 fx noted as well. On full liquid diet without known POC of blood loss. Discussed addition of Ensure r/tpositive nutrition screening which he states he didn't care for much but could consume until diet progressed. Remotely 219# with intentional weight losses to 170# reported with current weight 187.2# (?difference of scales home vs hospital? and trace edema). Expect PO to be adequate once PO advanced. Nutrition Related Findings: non pitting BLE edema. no b/s recorded. Wound Type: None Current Nutrition Intake & Therapies: Average Meal Intake: Unable to assess (no PO records) Average Supplements Intake: None Ordered ADULT DIET; Full Liquid ADULT ORAL NUTRITION SUPPLEMENT; Breakfast, Lunch, Dinner; Standard High Calorie/High Protein Oral Supplement Anthropometric Measures: Height: 152.4 cm (5') Beccaria Body Weight (IBW): 106 lbs (48 kg) Admission Body Weight: 84.8 kg (187 lb) Current Body Weight: 84.9 kg (187 lb 3.2 oz), 176.6 % IBW. Weight Source: Bed scale Current BMI (kg/m2): 36.6 Usual Body Weight: 99.6 kg (219 lb 9.6 oz) (April 2018, states 170# or so recently at home) % Weight Change (Calculated): -14.8 Weight Adjustment For: No Adjustment BMI Categories: Obese Class 2 (BMI 35.0 -39.9) Estimated Daily Nutrient Needs: Energy Requirements Based On: Kcal/kg Weight Used for Energy Requirements: Current Energy (kcal/day): 7658-7943 (15-20) Weight Used for Protein Requirements: Beccaria Protein (g/day): 63-72 (1.3-1.5) Method Used for Fluid Requirements: 1 ml/kcal Fluid (ml/day): 1700 Nutrition Diagnosis: Altered nutrition-related lab values related to endocrine dysfunction as evidenced by lab values Lab Results Component Value Date NA 131 (L) 02/08/2024 K 4.6 02/08/2024 CL 102 02/08/2024 CO2 22 02/08/2024 BUN 13 02/08/2024 CREATININE 1.1 02/08/2024 GLUCOSE 210 (H) 02/08/2024 CALCIUM 7.8 (L) 02/08/2024 BILITOT 0.7 02/07/2024 ALKPHOS 140 (H) 02/07/2024 AST 26 02/07/2024 ALT 10 02/07/2024 LABGLOM 70 02/08/2024 GFRAA >60 05/18/2018 No results found for: LABA1C No results found for: VITD25 Nutrition Interventions: Food and/or Nutrient Delivery: Start Oral Nutrition Supplement, Continue Current Diet Nutrition Education/Counseling: Education/Counseling initiated Coordination of Nutrition Care: Continue to monitor while inpatient Plan of Care discussed with: patient Goals: Goals: Meet at least 75% of estimated needs Type of Goal: New goal Previous Goal Met: New Goal Nutrition Monitoring and Evaluation: Behavioral-Environmental Outcomes: None Identified Food/Nutrient Intake Outcomes: Diet Advancement/Tolerance, Food and Nutrient Intake, Supplement Intake Physical Signs/Symptoms Outcomes: Biochemical Data, Weight, Fluid Status or Edema, Hemodynamic Status Discharge Planning: No discharge needs at this time Mani Ellis RD, NIVIA Contact: [phone] * Viki Tesfaye RN - 02/08/2024 12:51 AM EST Patient called out that his cpap was beeping. Director Of Brand Marketing assessed and there were no active alarms. Patient told investigative writer he feels SOB. Director Of Brand Marketing assessed oxygen and it was 98% with the cpap on. Director Of Brand Marketing will inform patient's nurse per patient request. * Amy Butler RN - 02/07/2024 5:40 PM EST Cardiology consult completed, form faxed to office. * Amy Butler RN - 02/07/2024 4:00 PM EST [facility] * Erin Estevez RN - 02/07/2024 3:55 PM EST Patient admitted to 328 per stretcher, os3l/nc, oriented to room, whiteboard updated, report received per phone prior from [facility] ED, call light within reach, assessment and vitals initiated, * Ama Burgess RCP - 02/07/2024 12:31 PM EST Pt called out stating he needed is oxygen placed back on. Director Of Brand Marketing discussed with pt that he came in on room air. Pt stated he wears 3 lpm nasal cannula continuously at home. Director Of Brand Marketing placed pt on 3 lpm nasal cannula per request of patient. RN made aware. Will continue to monitor. documented in this encounterBon [facility] Hospital Discharge instructions* Discharge Instr - ARMIDA* Maggie Lehman MSW, MAINTENANCE SERVICES DISPATCHER - 02/09/2024 1:19 PM EST Continuity of Care Form Patient Name: Brian Mandel : 1950 Admit date: 02/07/2024 Discharge date: Code Status Order: DNR-CCA Advance Directives: Advance Care Flowsheet Documentation Admitting Physician: Luz Ivory MD PCP: Claudia, Melanie N, DO Discharging Nurse: Discharging Hospital Unit/Room#: 0328/0328-01 Discharging Unit Phone Number: Emergency Contact: Extended Emergency Contact Information Primary Emergency Contact: Tj Mandel Mobile Relation: Brother/Sister Secondary Emergency Contact: Alex Mandel Mobile Relation: Child Past Surgical History: Past Surgical History: Procedure Laterality Date ARTERIAL BYPASS SURGRY Bilateral filters placed femoral arteries for AAA BYPASS GRAFT Left femoral COLONOSCOPY a couple years ago CORONARY ARTERY BYPASS GRAFT 02/24/2007 x3 ROTATOR CUFF REPAIR Left 08/2018 UMBILICAL HERNIA REPAIR Immunization History: Immunization History Administered Date(s) Administered COVID-19, PFIZER PURPLE top, DILUTE for use, (age 12 y+), 30mcg/0.3mL 05/07/2020, 05/28/2020 Active Problems: Patient Active Problem List Diagnosis Code Anemia requiring transfusions D64.9 Pure hypercholesterolemia E78.00 Body mass index 40.0-44.9, adult Z68.41 Essential hypertension, benign I10 Old myocardial infarction I25.2 Anxiety disorder F41.9 Major depressive disorder F32.9 Chronic diastolic congestive heart failure (HCC) I50.32 Solitary pulmonary nodule R91.1 Obstructive sleep apnea (adult) (pediatric) 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 Z79.51 Difficulty walking R26.2 Chronic respiratory failure with hypoxia J96.11 COPD (chronic obstructive pulmonary disease) ([facility]) J44.9 Rotator cuff tear, non-traumatic, right M75.101 Muscle weakness (generalized) M62.81 Generalized weakness R53.1 AAA (abdominal aortic aneurysm) ([facility]) I71.40 Electrolyte imbalance E87.8 Megaloblastic anemia D53.1 S/P TAVR (transcatheter aortic valve replacement) Z95.2 Hypokalemia E87.6 Hypomagnesemia E83.42 Acute cystitis with hematuria N30.01 Kidney stone N20.0 Isolation/Infection: Isolation No Isolation Patient Infection Status None to display Nurse Assessment: Last Vital Signs: BP 111/67 Pulse 64 Temp (!) 96.5 F (35.8 C) (Temporal) Resp 18 Ht 1.524 m(5') Wt 84.2 kg (185 lb 10 oz) SpO2 99% BMI 36.25 kg/m Last documented pain score (0-10 scale): Pain Level: 7 Last Weight: Wt Readings from Last 1 Encounters: 02/09/24 84.2 kg (185 lb 10 oz) Mental Status: {IP PT MENTAL STATUS:} IV Access: { ARMIDA IV ACCESS:127357123} Nursing Mobility/ADLs: Walking {CHP DME ADLs:642620446} Transfer {CHP DME ADLs:922183129} Bathing {CHP DME ADLs:551056995} Dressing {CHP DME ADLs:116681623} Toileting {CHP DME ADLs:083605192} Feeding {CHP DME ADLs:966696109} Product Manager {CHP DME ADLs:197016006} Med Delivery { ARMIDA MED Delivery:008777221} Wound Care Documentation and Therapy: Elimination: Continence: Bowel: {YES / NO:} Bladder: {YES / NO:} Urinary Catheter: {Urinary Catheter:732161864} Colostomy/Ileostomy/Ileal Conduit: {YES / NO:} Date of Last BM: Intake/Output Summary (Last 24 hours) at 02/09/2024 1318 Last data filed at 02/09/2024 0915 Gross per 24 hour Intake 440 ml Output 1300 ml Net -860 ml I/O last 3 completed shifts: In: 1043 [P.O.:680; Blood:363] Out: 1750 [Urine:1750] Safety Concerns: { ARMIDA Safety Concerns:123554557} Impairments/Disabilities: { ARMIDA Impairments/Disabilities:354791697} Nutrition Therapy: Current Nutrition Therapy: { ARMIDA Diet List:770516050} Routes of Feeding: {CHP DME Other Feedings:107115144} Liquids: {Choir Leader liquid thickness:06420} Daily Fluid Restriction: {CHP DME Yes amt example:393487052} Last Modified Barium Swallow with Video (Video Swallowing Test): {Done Not Done Date:} Treatments at the Time of Hospital Discharge: Respiratory Treatments: Oxygen Therapy: {Therapy; copd oxygen:70070} Ventilator: { CC Vent List:619217586} Rehab Therapies: {THERAPEUTIC INTERVENTION:3283657101} Weight Bearing Status/Restrictions: { CC Weight Bearin} Other Medical Equipment (for information only, NOT a DME order): {EQUIPMENT:702619884} Other Treatments: Patient's personal belongings (please select all that are sent with patient): {CHP DME Belongings:480404262} RN SIGNATURE: {Esignature:088176580} CASE MANAGEMENT/SOCIAL WORK SECTION Inpatient Status Date: 02/07/2024 Readmission Risk Assessment Score: [facility] RISK OF UNPLANNED READMISSION 2.0 15.5 Total Score Discharging to Facility/ Agency Name: [place] Address:[facility] [address] [place] [address] Dialysis Facility (if applicable) Name: Address: Dialysis Schedule: Phone: Fax: Complex Case Manager/Sap Specialist signature: PHYSICIAN SECTION Prognosis: {Prognosis:5967173514} Condition at Discharge: { Patient Condition:291360839} Rehab Potential (if transferring to Rehab): {Prognosis:9165131609} Recommended Labs or Other Treatments After Discharge: Physician Certification: I certify the above information and transfer of Brian Mandel is necessary for the continuing treatment of the diagnosis listed and that he requires {Admit to AppropriateLevel of Care:62030} for {GREATER/LESS:206772063} 30 days. Update Admission H&P: {CHP DME Changes in HandP:108591868} PHYSICIAN SIGNATURE: {Esignature:745750591} documented in this encounterBon [facility]12[facility] Miscellaneous Notes* Telephone Encounter - Natalie Martinez - 01/30/2024 2:46 PM EST Reschedule 03/01 appt [facility] Note* Telephone Encounter - Natalie Martinez - 01/30/2024 2:46 PM EST Reschedule 03/01 appt [facility] Miscellaneous Notes* Telephone Encounter - Kateryna Fernandez - 01/04/2024 2:59 PM EST Multiple messages for patient to contact office to schedule hosp f/u appt September. Unable to reach patient. [facility] Telephone encounter Note* Telephone Encounter - Kateryna Fernandez - 01/04/2024 2:59 PM EST Multiple messages for patient to contact office to schedule hosp f/u appt September. Unable to reach patient. [facility]-28-[facility] Miscellaneous Notes* Telephone Encounter - Dina Pruett - 12/19/2023 12:18 PM EDT Left voicemail for patient to call our office to schedule follow up appointment with Juju Wells [facility] Telephone encounter Note* Telephone Encounter - Dina Pruett - 12/19/2023 12:18 PM EDT Left voicemail for patient to call our office to schedule follow up appointment with Juju Wells [facility]10-17-[facility]24 Miscellaneous Notes* Telephone Encounter - Juju Jimenez LPN - 12/08/2023 9:00 AM EDT Patient calls and leaves a message asking for a return call. * Telephone Encounter - Juju Jimenez LPN - 12/08/2023 9:00 AM EDT Returned patients call and left a voicemail to call the office. documented in this [facility]10-17-2024 Telephone encounter Note* Telephone Encounter - Juju Jimenez LPN - 12/08/2023 9:00 AM EDT Patient calls and leaves a message asking for a return call. [facility]-17-[facility] Telephone encounter Note* Telephone Encounter - Juju iJmenez LPN - 12/08/2023 9:00 AM EDT Returned patients call and left a voicemail to call the office. [facility] [employer] [id number] Miscellaneous Notes* Telephone Encounter - Skyler Lake MD - 11/27/2023 11:42 AM EDT Needs follow-up with Dr. Burden or Dr. Sylvester in [place] to discuss stone treatment documented in this encounterOhio[facility]24 Telephone encounter Note* Telephone Encounter - Skyler Lake MD - 11/27/2023 11:42 AM EDT Needs follow-up with Dr. Burden or Dr. 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 * Telephone Encounter - Naty Martinez - 11/23/2023 5:18 PM EDT Secure Chat sent to Dr Wil Nath documented in this encounterOhio[facility]10-02-2024 Telephone encounter Note* Telephone Encounter - Naty Martinez - 11/23/2023 5:18 PM EDT Contract: [address] Nath Anemia Thrombo Cytotenia [facility]10-02-2024 Telephone encounter Note* Telephone Encounter - Naty Martinez - 11/23/2023 5:18 PM EDT Secure Chat sent to Dr Wil Nath [facility]10-01-2024 Miscellaneous Notes* Telephone Encounter - Padmaja Nicholas RN - 11/22/2023 6:17 AM EDT Contract: PPCRD New consult: eval for anticoagulation * Telephone Encounter - Padmaja Nicholas RN - 11/22/2023 6:17 AM EDT Secure chat message sent to Maria Del Rosario Peck CNP re new consult Encounter routed to [facility] Consult Desk documented in this encounterOhio[facility]10-01-2024 Telephone encounter Note* Telephone Encounter - Padmaja Nicholas RN - 11/22/2023 6:17 AM EDT Contract: PPC New consult: eval for anticoagulation [facility]10[facility] Telephone encounter Note* Telephone Encounter - Padmaja Nicholas RN - 11/22/2023 6:17 AM EDT Secure chat message sent to Maria Del Rosario Peck CNP re new consult Encounter routed to [facility] Consult Desk [facility]10-[facility]24 Miscellaneous Notes* Telephone Encounter - Padmaja Nicholas RN - 11/22/2023 6:13 AM EDT Contract: [address] [facility] Re new consult T12 burst fx * Telephone Encounter - Padmaja Nicholas RN - 11/22/2023 6:[address] Vizcaino on his cell phone- warm transferred to Katharina documented in this encounterOhioHealth [facility] Center10-01-2024 Telephone encounter Note* Telephone Encounter - Padmaja Nichloas RN - 11/22/2023 6:13 AM EDT Contract: [address] [facility] Re new consult T12 burst fx [facility]10-[facility] Telephone encounter Note* Telephone Encounter - Padmaja Nicholas RN - 11/22/2023 6:[address] Vizcaino on his cell phone- warm transferred to Katharina [facility]09-19-2024 Miscellaneous Notes* Telephone Encounter - Anna Kearns - 11/10/2023 9:57 AM EDT Left message to get dental clearance update from pt. Per KKY: Pt that was recently seen by [facility] during admission for TAVR eval He is ready to schedule TAVR once he gets dental clearance. He sees [facility] in [place]. Last a spoke to him he was said he was going to refuse any dental work, but the nurse indicated maybe he came around. He had syncope, so if we are going to do his TAVR we need to try to do it much sooner than later documented in this encounterOhioHealth [facility] Center09-19-2024 Telephone encounter Note* Telephone Encounter - Anna Kearns - 11/10/2023 9:57 AM EDT Left message to get dental clearance update from pt. Per KKY: Pt that was recently seen by [facility] during admission for TAVR eval He is ready to schedule TAVR once he gets dental clearance. He sees [facility] in [place]. Last a spoke to him he was said he was going to refuse any dental work, but the nurse indicated maybe he came around. He had syncope, so if we are going to do his TAVR we need to try to do it much sooner than later [facility]09-12[facility] Miscellaneous Notes* Telephone Encounter - Anna Kearns - 11/03/2023 1:35 PM EDT Left message to ask pt for update on dental and offer next avail date for TAVR with [facility]. Faxed dental clearance form to [facility] in [place]. documented in this encounterOhioHealth [facility] Center09-12-2024 Telephone encounter Note* Telephone Encounter - Anna Kearns - 11/03/2023 1:35 PM EDT Left message to ask pt for update on dental and offer next avail date for TAVR with [facility]. Faxed dental clearance form to [facility] in [place]. [facility]09-[facility] Miscellaneous Notes* Telephone Encounter - Naty Martinez - 10/28/2023 5:58 PM EDT Contract: TYLER re Order Clarfication * Telephone Encounter - Naty Martinez - 10/28/2023 5:58 PM EDT Secure chat sent to Kelsie Gonzales CNP documented in this encounterOhioHealth [facility] Center09-06-2024 Telephone encounter Note* Telephone Encounter - Naty Martinez - 10/28/2023 5:58 PM EDT Contract: TYLER re Order Clarfication [facility]09-06-[facility] Telephone encounter Note* Telephone Encounter - Naty Martinez - 10/28/2023 5:58 PM EDT Secure chat sent to Kelsie Gonzales CNP [facility]09-04-2024 Miscellaneous Notes* Telephone Encounter - Katherine Palma - 10/26/2023 2:58 AM EDT [phone], new consult/transfer; rm [id number] Guillermo Murphy * Telephone Encounter - Katherine Louie - 10/26/2023 2:58 AM EDT Secure chat sent documented in this encounterOhioHealth [facility] Center09-04-2024 Telephone encounter Note* Telephone Encounter - Katherine Louie - 10/26/2023 2:58 AM EDT Contract: [facility] [phone] [facility] re requesting a call back, new consult/transfer; rm B655 Tx Katherine [facility]09-04-2024 Telephone encounter Note* Telephone Encounter - Katherineglenn Palma - 10/26/2023 2:58 AM EDT Secure chat sent [facility]09-03-[facility] Plan of care note* Plan of Care - Ingrid Dunn RN - 10/25/2023 11:49 PM EDT Problem: Pain Goal: Patient goal is pain score less than 4, able to rest, and participant in treatment plan as appropriate Description: INTERVENTIONS: 1. Encourage patient or legal customer account representative to report early pain and ask for pain medicine when needed 2. Assess pain using appropriate pain scale and include the scale used when documenting 3. Administer analgesics based on type and severity of pain and evaluate response within appropriate time frame 4. Implement non-pharmacological measures as appropriate and evaluate response 5. Consider cultural and social influences on pain and pain management 6. Notify LIP if interventions ineffective or patient reports new pain 7. Monitor vital signs including pulse ox, end-tidal CO2 based on pain intervention 8. Reassess pain per policy 9. Teach patient or legal customer account representative interventions for comforting Outcome: Progressing Note: Evaluation of progress towards goal: pain verbalized acceptable pain. medicate prn Problem: Safety Goal: Patient will be injury free during hospitalization Description: INTERVENTIONS: 1. Assess patient's risk for falls and implement fall prevention plan of care per policy 2. Provide and maintain a safe environment 3. Proper use of double Identifiers 4. Medication administration using the 5 rights 5. Hand hygiene 6. Specimens are labeled at the bedside 7. Instruct patient/ patient customer account representative about use of safety devices 8. Include patient/ patient customer account representative in decisions related to safety Outcome: Progressing Note: Evaluation of progress towards goal: Free from falls. Call light in reach. Bed low and locked. Problem: Infection Goal: Absence of infection during hospitalization Description: Interventions: 1. Assess and monitor for signs and symptoms of infection 2. Monitor lab/diagnostic results 3. Monitor all insertion sites i.e., indwelling lines, tubes and drains 4. Monitor endotracheal (as able) and nasal secretions for changes in amount and color 5. Administer medications as ordered 6. Instruct and encourage patient and family to use good hand hygiene technique 7. Identify and instruct patient/patient customer account representative in use of appropriate isolation precautionsfor identified infection/symptoms 8. Provide and discuss with patient/patient customer account representative on educational MDRO sheet 9. Encourage and monitor nutritional status daily and consult court monitor if indicated 10. Implement neutropenic guidelines as needed 11. Review exposure to history of communicable disease and recent travel history on admission 12. Encourage annual influenza vaccine 13. Encourage pneumonia vaccine Outcome: Progressing Note: Evaluation of progress towards goal: Pt aferbrile.iv antibiotics as ordered. Iv without redness or swelling. Will continue to monitor. Problem: Knowledge Deficit Goal: Patient/patient customer account representative demonstrates understanding of disease process, treatment plan,medications, and discharge instructions Description: INTERVENTIONS 1. Complete learning assessment and assess knowledge base 2. Provide teaching at level of understanding 3. Provide teaching via preferred learning method(s) Outcome: Progressing Note: Evaluation of progress towards goal: Updated on plan of care. Fall prevention education reinforced. Continue to monitor Problem: Discharge Planning Goal: Discharge to post-acute care, other facility, or home with appropriate resources Description: Patient's goal is: INTERVENTIONS 1. Conduct assessment to determine patient/family and health care team treatment goals, and need for post-acute services based on payer coverage, community resources, and patient preferences, and barriers to discharge 2. Coordinate with Social work, Care Navigation, and Utilization Review to arrange appropriate level of services according to patient's needs based on patient preference and payer coverage in collaboration with the physician and health care team 3. Address psychosocial, clinical, and financial barriers to discharge as identified in assessment in conjunction with the patient/family and health care team 4. Consult appropriate ancillary services (i.e.. PT/OT/ST, etc) as needed 5. Communicate with and update the patient/family, physician, and health care team regarding progress on the discharge plan 6. Identify discharge learning needs (meds, wound care, etc). 7. Arrange for needed discharge transportation as appropriate Outcome: Progressing Note: Evaluation of progress towards goal: Not ready for discharge. Currently assessing for discharge needs. Continue to monitor [employer]09-03-2024 Miscellaneous Notes* Plan of Care - Ingrid Dunn RN - 10/25/2023 11:49 PM EDT Problem: Pain Goal: Patient goal is pain score less than 4, able to rest, and participant in treatment plan as appropriate Description: INTERVENTIONS: 1. Encourage patient or legal customer account representative to report early pain and ask for pain medicine when needed 2. Assess pain using appropriate pain scale and include the scale used when documenting 3. Administer analgesics based on type and severity of pain and evaluate response within appropriate time frame 4. Implement non-pharmacological measures as appropriate and evaluate response 5. Consider cultural and social influences on pain and pain management 6. Notify LIP if interventions ineffective or patient reports new pain 7. Monitor vital signs including pulse ox, end-tidal CO2 based on pain intervention 8. Reassess pain per policy 9. Teach patient or legal customer account representative interventions for comforting Outcome: Progressing Note: Evaluation of progress towards goal: pain verbalized acceptable pain. medicate prn Problem: Safety Goal: Patient will be injury free during hospitalization Description: INTERVENTIONS: 1. Assess patient's risk for falls and implement fall prevention plan of care per policy 2. Provide and maintain a safe environment 3. Proper use of double Identifiers 4. Medication administration using the 5 rights 5. Hand hygiene 6. Specimens are labeled at the bedside 7. Instruct patient/ patient customer account representative about use of safety devices 8. Include patient/ patient customer account representative in decisions related to safety Outcome: Progressing Note: Evaluation of progress towards goal: Free from falls. Call light in reach. Bed low and locked. Problem: Infection Goal: Absence of infection during hospitalization Description: Interventions: 1. Assess and monitor for signs and symptoms of infection 2. Monitor lab/diagnostic results 3. Monitor all insertion sites i.e., indwelling lines, tubes and drains 4. Monitor endotracheal (as able) and nasal secretions for changes in amount and color 5. Administer medications as ordered 6. Instruct and encourage patient and family to use good hand hygiene technique 7. Identify and instruct patient/patient customer account representative in use of appropriate isolation precautionsfor identified infection/symptoms 8. Provide and discuss with patient/patient customer account representative on educational MDRO sheet 9. Encourage and monitor nutritional status daily and consult court monitor if indicated 10. Implement neutropenic guidelines as needed 11. Review exposure to history of communicable disease and recent travel history on admission 12. Encourage annual influenza vaccine 13. Encourage pneumonia vaccine Outcome: Progressing Note: Evaluation of progress towards goal: Pt aferbrile.iv antibiotics as ordered. Iv without redness or swelling. Will continue to monitor. Problem: Knowledge Deficit Goal: Patient/patient customer account representative demonstrates understanding of disease process, treatment plan,medications, and discharge instructions Description: INTERVENTIONS 1. Complete learning assessment and assess knowledge base 2. Provide teaching at level of understanding 3. Provide teaching via preferred learning method(s) Outcome: Progressing Note: Evaluation of progress towards goal: Updated on plan of care. Fall prevention education reinforced. Continue to monitor Problem: Discharge Planning Goal: Discharge to post-acute care, other facility, or home with appropriate resources Description: Patient's goal is: INTERVENTIONS 1. Conduct assessment to determine patient/family and health care team treatment goals, and need for post-acute services based on payer coverage, community resources, and patient preferences, and barriers to discharge 2. Coordinate with Social work, Care Navigation, and Utilization Review to arrange appropriate level of services according to patient's needs based on patient preference and payer coverage in collaboration with the physician and health care team 3. Address psychosocial, clinical, and financial barriers to discharge as identified in assessment in conjunction with the patient/family and health care team 4. Consult appropriate ancillary services (i.e.. PT/OT/ST, etc) as needed 5. Communicate with and update the patient/family, physician, and health care team regarding progress on the discharge plan 6. Identify discharge learning needs (meds, wound care, etc). 7. Arrange for needed discharge transportation as appropriate Outcome: Progressing Note: Evaluation of progress towards goal: Not ready for discharge. Currently assessing for discharge needs. Continue to monitor * Plan of Care - Karen Rodas RN - 10/25/2023 8:21 PM EDT Problem: Pain Goal: Patient goal is pain score less than 4, able to rest, and participant in treatment plan as appropriate Description: INTERVENTIONS: 1. Encourage patient or legal customer account representative to report early pain and ask for pain medicine when needed 2. Assess pain using appropriate pain scale and include the scale used when documenting 3. Administer analgesics based on type and severity of pain and evaluate response within appropriate time frame 4. Implement non-pharmacological measures as appropriate and evaluate response 5. Consider cultural and social influences on pain and pain management 6. Notify LIP if interventions ineffective or patient reports new pain 7. Monitor vital signs including pulse ox, end-tidal CO2 based on pain intervention 8. Reassess pain per policy 9. Teach patient or legal customer account representative interventions for comforting Outcome: Progressing Note: Evaluation of progress towards goal: Pt able to report pain according to 0/10 pain scale. Medicating patient for pain per orders. Continue to monitor. * Discharge Planning Note - SHERINE Lopes - 10/25/2023 2:38 PM EDT DISCHARGE PLANNING NOTE Per chart review, pt with possible transfer to [facility]. SW following pt progress and will assist w/discharge planning accordingly. Pts current plan is to return home w/[facility]. * PT/OT/RESEARCH TEST ENGINE OPERATOR - SREEKANTH Muñoz - 10/25/2023 2:08 PM EDT Occupational Therapy CANCEL - Deferred (Hold secondary to medical status. Pt with possible TTH transfer for THIERRY per cardiology.) * Significant Event - EMMA Mckee - 10/25/2023 11:54 AM EDT Case reviewed and discussed briefly with Dr. Ruiz. Had mod-severe AI and mod-severe on prior echo that was completed at time of admission for MRSA bacteremia in July. Prior echo in June at outside hospital had reportedly showed no AI. Recommending transfer to [facility] for THIERRY and further evaluation. Sally Moore PA-C [facility] Structural [facility] EMMA Mckee 10/25/23 1157 * Significant Event - Matt Montemayor MD - 10/25/2023 10:53 AM EDT Just received a phone call from Dr Rust, Anesthesiologist, at [facility] concerned about severe Aortic stenosis. Please refer to his documentation for further details. Thanks. Matt Montemayor MD, FACC Addendum: I spoke over the phone with Sally Moore, our structural Heart RASHAUN, to have the attending review EHR data and 2D echocardiogram results remotely and if necessary we can transfer patient to [facility] for further evaluation and management of her aortic stenosis by the structural heart team and subsequent kyphoplasty etc.. Thank you. Matt Montemayor MD, FACC * Significant Event - Matt Montemayor MD - 10/25/2023 10:37 AM EDT Saw patient prior to OR this AM. Sleeping soundly. Arousable. No active cardiac symptoms. CVS: Regular with persistent systolic murmur. Stable overnight cardiac bueno with no new cardiac recommendations. Discussed with the patient's nurse Evelyn, while I was on the floor. Await surgery. Patient & the surgeon understands high cardiac risk perioperatively. Thanks. Matt Montemayor MD, FACC * PT/OT/RESEARCH TEST ENGINE OPERATOR - Suzanne Weinberg PTA - 10/25/2023 9:37 AM EDT Physical Therapy CANCEL - Deferred (pt conts with increased pain levels, potential for surgery this date, will cont to hold at this time and check back as appropriate and able to participate in PT services.) Associated attestation - Beulah Kohli PT - 10/25/2023 12:05 PM EDT I have reviewed and agree with this note and education documentation for this visit. * PT/OT/RESEARCH TEST ENGINE OPERATOR - Monika Redman OT/L - 10/25/2023 9:36 AM EDT Occupational Therapy CANCEL - Deferred OT will hold due to patient with possible surgery this day and RN reporting patient having increased pain this morning. OT to check back as able and appropriate. * Plan of Care - Natalie Montelongo RN - 10/24/2023 1:31 PM EDT Problem: Pain Goal: Patient goal is pain score less than 4, able to rest, and participant in treatment plan as appropriate Description: INTERVENTIONS: 1. Encourage patient or legal customer account representative to report early pain and ask for pain medicine when needed 2. Assess pain using appropriate pain scale and include the scale used when documenting 3. Administer analgesics based on type and severity of pain and evaluate response within appropriate time frame 4. Implement non-pharmacological measures as appropriate and evaluate response 5. Consider cultural and social influences on pain and pain management 6. Notify LIP if interventions ineffective or patient reports new pain 7. Monitor vital signs including pulse ox, end-tidal CO2 based on pain intervention 8. Reassess pain per policy 9. Teach patient or legal customer account representative interventions for comforting Outcome: Progressing Note: Evaluation of progress towards goal: pt rates back pain 5-7/10. Medicated as ordered. Pt is able to get out of bed and ambulate to bathroom using walker and staff supervision. Continue to monitor. Problem: Safety Goal: Patient will be injury free during hospitalization Description: INTERVENTIONS: 1. Assess patient's risk for falls and implement fall prevention plan of care per policy 2. Provide and maintain a safe environment 3. Proper use of double Identifiers 4. Medication administration using the 5 rights 5. Hand hygiene 6. Specimens are labeled at the bedside 7. Instruct patient/ patient customer account representative about use of safety devices 8. Include patient/ patient customer account representative in decisions related to safety Outcome: Progressing Note: Evaluation of progress towards goal: Safety measures initiated/maintained. Pt remains safe from harm/injury/falls. Pt isupervised with transfers and ambulation. Gait steady with walker. Pt usescall light if needing assistance. Continue to monitor. Problem: Infection Goal: Absence of infection during hospitalization Description: Interventions: 1. Assess and monitor for signs and symptoms of infection 2. Monitor lab/diagnostic results 3. Monitor all insertion sites i.e., indwelling lines, tubes and drains 4. Monitor endotracheal (as able) and nasal secretions for changes in amount and color 5. Administer medications as ordered 6. Instruct and encourage patient and family to use good hand hygiene technique 7. Identify and instruct patient/patient customer account representative in use of appropriate isolation precautionsfor identified infection/symptoms 8. Provide and discuss with patient/patient customer account representative on educational MDRO sheet 9. Encourage and monitor nutritional status daily and consult court monitor if indicated 10. Implement neutropenic guidelines as needed 11. Review exposure to history of communicable disease and recent travel history on admission 12. Encourage annual influenza vaccine 13. Encourage pneumonia vaccine Outcome: Progressing Note: Evaluation of progress towards goal: no signs of infection. Continue to monitor. Problem: Knowledge Deficit Goal: Patient/patient customer account representative demonstrates understanding of disease process, treatment plan,medications, and discharge instructions Description: INTERVENTIONS 1. Complete learning assessment and assess knowledge base 2. Provide teaching at level of understanding 3. Provide teaching via preferred learning method(s) Outcome: Progressing Note: Evaluation of progress towards goal: plan of care discussed with pt. Problem: Discharge Planning Goal: Discharge to post-acute care, other facility, or home with appropriate resources Description: Patient's goal is: INTERVENTIONS 1. Conduct assessment to determine patient/family and health care team treatment goals, and need for post-acute services based on payer coverage, community resources, and patient preferences, and barriers to discharge 2. Coordinate with Social work, Care Navigation, and Utilization Review to arrange appropriate level of services according to patient's needs based on patient preference and payer coverage in collaboration with the physician and health care team 3. Address psychosocial, clinical, and financial barriers to discharge as identified in assessment in conjunction with the patient/family and health care team 4. Consult appropriate ancillary services (i.e.. PT/OT/ST, etc) as needed 5. Communicate with and update the patient/family, physician, and health care team regarding progress on the discharge plan 6. Identify discharge learning needs (meds, wound care, etc). 7. Arrange for needed discharge transportation as appropriate Outcome: Progressing Note: Evaluation of progress towards goal: pt plans on returning home with home care services. Problem: Glucose Imbalance Goal: Clinical indication of glucose balance is achieved Description: Patient's goal is: INTERVENTIONS 1. Monitor blood glucose levels as ordered 2. Administer medications as ordered 3. Notify physician of ineffective treatment plan Outcome: Progressing Note: Evaluation of progress towards goal: has not required coverage today. Insulin sliding scale in place. Goal: Patient's discharge needs are met Description: Patient's goal is: INTERVENTIONS 1. Assess patient for self-management skills 2. Encourage participation in diabetes management 3. Identify potential discharge barriers on admission and throughout hospital stay 4. Involve patient/S.O. in discharge planning process 5. Communicate referral to music educator as appropriate 6. Communicate referral to court monitor as appropriate 7. Collaborate with case management/secondary social studies teacher for discharge needs Outcome: Progressing Note: Evaluation of progress towards goal: Problem: Moderate - High Risk Fall Score Description: Bell Fall Score of =/> 25 or indicated by [facility] Assessment Goal: Patient should be free from fall Description: Interventions: 1. [place] to environment 2. Hourly rounds addressing the 4 P's (Pain, Positioning, Possessions, Potty) 3. Clear area of hazards (spills, clutter, electrical cords, unnecessary equipment) 4. Place equipment (bed & TV controls, call light, phone, urinal) within reach 5. Encourage patient to wear glasses and hearing aides as appropriate 6. Maintain bed in lowest position 7. Lock wheels on bed/wheelchair 8. Provide adequate lighting, including night light 9. Assess need for additional bedding, food/fluids, pain med's prior to sleep/routinely 10. Provide gripper slippers or personal non-skid footwear 11. Teach patient and patient customer account representative to maintain environment for safety and engage in all aspects of fall prevention program 12. Remind patient to call for help before getting out of bed 13. Initiate bed/chair/exit alarms supportive devices as appropriate, (chair wedge, no-skid floor mat, raised edge mattress, hip protectors) 14. Locate patient bed assignment for optimal visualization 15. Evaluate and identify Safe Patient Handling Equipment needs 16. Provide supervision when out of bed or chair 17. Utilize gait belt as needed to assist with ambulation 18. Place adaptive equipment (cane, walker) within reach 19. Request patient customer account representative bring adaptive equipment/mobility aids from home or obtain and provide as needed 20. Consult pharmacy regarding effects of med's affecting mobility, cognition, and alternatives 21. Obtain physician order for PT if risk factors associated with mobility are present 22. Obtain physician order for OT as appropriate 23. Utilize diversional activities 24. Educate patient and patient customer account representative how to maintain a safe environment during visitationtimes (notify nurse prior to leaving bedside) 25. Consider appropriateness of medical or non-bilingual medical assistant 26. Set up voiding schedule as appropriate (every 2 hours) Outcome: Progressing Note: Evaluation of progress towards goal: Safety measures initiated/maintained. Pt remains safe from harm/injury/falls. Pt isupervised with transfers and ambulation. Gait steady with walker. Pt usescall light if needing assistance. Continue to monitor. Problem: Hemodynamic Status Goal: Maintains optimal cardiac output and hemodynamic stability Description: Patient's goal is: INTERVENTIONS 1. Assess and monitor patient's heart rate, rhythm, respiratory rate, peripheral pulses, capillary refill, color, body temperature, intake and output 2. Monitor labs and diagnostic testing 3. Observe for signs of chest pain (note location, duration, severity, radiation and associated symptoms such as diaphoresis, nausea, indigestion) 4. Monitor for signs and symptoms of heart failure (i.e. shortness of breath, edema of feet/ankles/legs, rapid irregular heart rate, coughing, wheezing, white/pink blood tinged sputum, sudden weight gain, chest pain) 5. Plan activities to conserve energy 6. Monitor for signs and symptoms of bleeding Outcome: Progressing Note: Evaluation of progress towards goal: stable Problem: Excessive Fluid Volume Goal: Fluid and electrolyte balance are achieved/maintained Description: INTERVENTIONS 1. Monitor vitals signs oxygen saturation, respiratory status to include rate, depth, effort, and lung sounds, ) urine color, labs, edema, jugular venous distention, and mental status 2. Monitor patient's weight 3. Monitor intake and output 4. Elevate head of bed 30 degrees 5. Turn patient 6. Monitor low sodium and fluid restriction diet per physician order 7. Collaborate with interdisciplinary team and initiate plan and interventions as ordered Outcome: Progressing Note: Evaluation of progress towards goal: within normal limits Problem: Inadequate Gas Exchange Goal: Patient is adequately oxygenated and ventilation is improved Description: Patient's goal is: INTERVENTIONS 1. Monitor vital signs, oxygen saturation, respiratory status to include rate, depth, effort, lung sounds, mental status, cyanosis, and labs (ABGs) 2. Administer oxygen as indicated 3. Position patient to optimize gas exchange 4. Instruct patient to turn, cough, and deep breathe; encourage incentive spirometer if indicated 5. Collaborate with Respiratory Therapy for inhaled medication and therapeutic adjuncts 6. Assess skin when indicated 7. Coordinate care and interventions to conserve energy 8. Educate and offer resources for tobacco cessation, if indicated Outcome: Progressing Flowsheets (Taken 10/24/2023 3425) Chest Assessment: Chest expansion symmetrical Note: Evaluation of progress towards goal: diminished breath sounds Problem: Activity Intolerance/Impaired Mobility Goal: Mobility/activity is maintained at optimum level for patient Description: Patient's goal is: INTERVENTIONS 1. Assess and monitor patient barriers to mobility and need for assistive/adaptive devices 2. Assess patient's emotional response to limitations 3. Collaborate with interdisciplinary teams and initiate plans and interventions as ordered 4. Encourage independent activity per tolerance 5. Maintain proper body alignment 6. Perform active/passive ROM as tolerated/ordered 7. Coordinate activities to conserve energy 8. Reposition patient 9. Ensure adequate rest/sleep time Outcome: Progressing Note: Evaluation of progress towards goal: pt able to walk to and from bathroom using walker Problem: Nutrition Goal: Patient's nutritional intake is adequate Description: Patient's goal is: INTERVENTIONS 1. Assess and monitor food intake and supplements, patient food preferences, nausea, vomiting, labs, oral cavity (gums, teeth, tongue, mucosa), proper denture fit, and cultural beliefs 2. Monitor for signs of hypoglycemia and hyperglycemia 3. Collaborate with interdisciplinary team and initiate plan and interventions as ordered 4. Monitor patient's weight 5. Assist patient with meals/food selection 6. Assist patient with eating 7. Allow adequate time for meals 8. Provide pleasant environment during mealtime 9. Increase social contact during mealtimes 10. Plan activities to conserve energy 11. Encourage/perform oral hygiene as appropriate 12. Encourage patient to take dietary supplement as ordered 13. Collaborate with clinical court monitor 14. Include patient/ patient's customer account representative in decisions related to nutrition Outcome: Progressing Note: Evaluation of progress towards goal: adequate Problem: Readmission Risk Reduction Goal: Readmission Risk Assessment Description: Utilize readmission risk score in the development of discharge plan INTERVENTIONS: 1. Discuss patient's risk of readmission at multidisciplinary discharge transition rounds. 2. Comprehensive assessment of patient's risk of readmission (functional, psychosocial, cognitive). 3. Collaborate with patient / caregiver to identify needs. 4. Handoff to next level of care provider (home health care coordinator, PCP, home care). 5. Complete follow up phone call within 72 hours. Outcome: Progressing Note: Evaluation of progress towards goal: Goal: Discharge Medication Plan Description: Develop a plan to ensure that medications are obtained at the time of discharge INTERVENTIONS: 1. Utilize outpatient pharmacy to deliver medications to patient prior to discharge, where available. 2. Ensure that prescriptions are sent to the patient's pharmacy of choice prior to patient leaving the hospital. If possible, confirm authorizations and co-pays and communicate to patient. 3. During discharge follow-up phone call, confirm that prescriptions have been filled. Outcome: Progressing Note: Evaluation of progress towards goal: Goal: Follow-Up Appointments Description: Schedule patient-centric follow-up appointments prior to discharge INTERVENTIONS: 1. Identify recommended / appropriate timeframes for follow-up. 2. Discuss transportation needs and scheduling preferences with patient. 3. Verify that all follow-up appointments are scheduled prior to discharge. Outcome: Progressing Note: Evaluation of progress towards goal: Goal: Discharge Medication Reconciliation Description: Review discharge medication reconciliation for accuracy INTERVENTIONS: 1. Include last dose date / time on the discharge medication list. 2. Utilize available resources to identify and address issues. 3. Consider use of a Discharge Time-Out or Discharge Final Check. 4. Refer to homecare, as appropriate, for home medication review. Outcome: Progressing Note: Evaluation of progress towards goal: Goal: Discharge Instructions Description: Provide accurate and complete discharge instructions, taking into account health literacy of the patient INTERVENTIONS: 1. Assess patient's learning needs including health literacy. 2. Provide disease-specific education as appropriate. 3. Consider use of teach-back to verify patient / caregiver understanding. 4. Verify understanding of discharge instructions. 5. Consider use of a Discharge Time-Out or Discharge Final-Check. Outcome: Progressing Note: Evaluation of progress towards goal: Additional Comments: * PT/OT/RESEARCH TEST ENGINE OPERATOR - Ingrid Torres PT - 10/24/2023 10:02 AM EDT Physical Therapy (P) CANCEL - Deferred (Pt c/o 09/30 back pain and still awaiting possible medical clearance for kyphoplasty surgery. Agreed to HOLD today.) * Plan of Care - Kianna Fonseca RN - 10/24/2023 6:27 AM EDT Problem: Pain Goal: Patient goal is pain score less than 4, able to rest, and participant in treatment plan as appropriate Description: INTERVENTIONS: 1. Encourage patient or legal customer account representative to report early pain and ask for pain medicine when needed 2. Assess pain using appropriate pain scale and include the scale used when documenting 3. Administer analgesics based on type and severity of pain and evaluate response within appropriate time frame 4. Implement non-pharmacological measures as appropriate and evaluate response 5. Consider cultural and social influences on pain and pain management 6. Notify LIP if interventions ineffective or patient reports new pain 7. Monitor vital signs including pulse ox, end-tidal CO2 based on pain intervention 8. Reassess pain per policy 9. Teach patient or legal customer account representative interventions for comforting Outcome: Progressing Note: Evaluation of progress towards goal: Pt able to report pain according to 0/10 pain scale. Medicating patient for pain per orders. Continue to monitor. Problem: Safety Goal: Patient will be injury free during hospitalization Description: INTERVENTIONS: 1. Assess patient's risk for falls and implement fall prevention plan of care per policy 2. Provide and maintain a safe environment 3. Proper use of double Identifiers 4. Medication administration using the 5 rights 5. Hand hygiene 6. Specimens are labeled at the bedside 7. Instruct patient/ patient customer account representative about use of safety devices 8. Include patient/ patient customer account representative in decisions related to safety Outcome: Progressing Note: Evaluation of progress towards goal: Safety measures initiated/maintained. Pt remains safe from harm/injury/falls. Continue to monitor. Problem: Infection Goal: Absence of infection during hospitalization Description: Interventions: 1. Assess and monitor for signs and symptoms of infection 2. Monitor lab/diagnostic results 3. Monitor all insertion sites i.e., indwelling lines, tubes and drains 4. Monitor endotracheal (as able) and nasal secretions for changes in amount and color 5. Administer medications as ordered 6. Instruct and encourage patient and family to use good hand hygiene technique 7. Identify and instruct patient/patient customer account representative in use of appropriate isolation precautionsfor identified infection/symptoms 8. Provide and discuss with patient/patient customer account representative on educational MDRO sheet 9. Encourage and monitor nutritional status daily and consult court monitor if indicated 10. Implement neutropenic guidelines as needed 11. Review exposure to history of communicable disease and recent travel history on admission 12. Encourage annual influenza vaccine 13. Encourage pneumonia vaccine Outcome: Progressing Note: Evaluation of progress towards goal: Patient VS WNL, remains afebrile for shift. Continue to monitor. * PT/OT/RESEARCH TEST ENGINE OPERATOR - Ingrid Torres, PT - 10/23/2023 1:18 PM EDT Physical Therapy Evaluation Discharge Recommendations PT [facility]ations[facility] Comments: Pt will benefit from skilled PT to increase pt's independence and safety with transfers and gait prior to discharge home. Therapy Plan Need for skilled Physical Therapy to address deficits in functional mobility due to a status decline resulting from hospitalization s/p fall.Pt is dx with Pulmonary embolism, on Heparin drip > 24 hrs at PT eval, and compression fx T12. Pt is awaiting medical clearance for kyphoplasty surgery. Per RN report, surgery is delayed due to multiple medical comorbidities / awaiting complex medical clearance. Pt is a 73 yo man who presented to the ED at [facility] d/t SOB and lower back pain after a fall. Pt fell to the ground at home. Pt has a prior h/o COPD and home O2 use. Elevated D-dimer at admission. Lumbar X-ray indicates T12 compression fx. Pulmonary perfusion scan showing a large perfusion defect involving majority of left mid/lower lung. Pt was transferred to [facility] 10/20/23. Per DR. Man's note 10/22/23, Surgeon recommends kyphoplasty surgery and cardiology has cleared patient as high-risk. Per RN, pt is awaiting further medical clearance from anesthesiology. Pt cleared for PT evaluation per RN. Patient was in the bathroom upon my entry. He was assisted to stand from the toilet and amb back tobed, assisted with repositioning. Pt c/o antalgic mobility. PT will continue to follow and tx with caution. 6 Clicks: Basic Mobility Turning from your back to your side while in a flat bed without using bed rails?: A little Moving from lying on your back to sitting on side of flat bed without using bed rails?: A little Moving to and from bed to a chair (including w/c)?: A little Standing up from a chair using your arms (e.g. w/c or bedside chair)?: A little To walk in hospital room?: A little Climbing 3-5 steps with a railing?: Total Scoring 6 Clicks: Basic Mobility Raw Score: 16 [facility] G Code Modifier: CK Past Medical History: Diagnosis Date Acute coronary syndrome [place] Anxiety disorder Chronic back pain Chronic obstructive asthma with exacerbation [place] COPD (chronic obstructive pulmonary disease) [place] Diabetes mellitus type 2, controlled ([facility] Essential hypertension Folate deficiency anemia Heart failure [place] Megaloblastic anemia VT (myocardial infarction) [place] 06/2023 Muscle weakness (generalized) Myocardial infarct [place] Obesity Obstructive sleep apnea SARAH (obstructive sleep apnea) Pancytopenia [place] Presence of coronary artery bypass graft stent Shock [place]) 10/05/2023 Supplemental oxygen dependent Past Surgical History: Procedure Laterality Date CARDIAC SURGERY X2 PT Treatment/Interventions: Functional transfer training, LE strengthening/ROM, Balance, Bed mobility, Gait training, Endurance training PT Frequency: 4-5days/week PT Duration: 10 Patient Response to Treatment: Tolerated evaluation without adverse reaction Assessment Patient Assessment Therapy Problem List: Decreased balance, Decreased mobility, Decreased LE strength, Decreased endurance Patient Response to Treatment: Tolerated evaluation without adverse reaction Mood/Affect: Anxious Rehab Prognosis: Good, With continued PT status post acute discharge Visit RN Communication: Yes Medical Record Reviewed: Yes PT Type of Visit: Evaluation Precautions Activity: early mobility guidelines Equipment: RW Telemetry/Lawn Mower Operator: Yes Oxygen Order : 2L Other: (S) PE (on Heparin drip at IE), Cardiac precautions. Potential surigcal candidate for Kyphoplasty (Mobilize patient gently, as tolerated. Caution with exercise. Pt is awaiting medical clearance for kyphoplasty due to mutiple medical comorbidities.) Pain Assessment Pain Assessment: 0-10 Pain Score: 9 Pain Type: Acute pain Pain Location: Back Pain Descriptors: Aching, Sharp Pain Frequency: Constant/continuous Pain Intervention(s): Repositioned (pt assisted to amb toilet to bed and get back in bed) Response to Interventions: Pain unchanged Home Living Type of Home: Trailer Home Layout: One level, Stairs to enter with rails Stairs to Enter: 4 Hand Rails: Bilateral Stairs in Home: 0 Bathroom Shower/Tub: Tub/shower unit Bathroom Equipment: Grab bars around toilet, Grab bars in shower Bathroom Accessibility: Accessible Home Equipment: Rolling walker, 4 Wheeled walker, Cane, Home oxygen Other : Pt is normally on 2L O2 at home Prior Function Lives With: Alone Level of Mobility: Independent with ADLs and functional transfers or gait Other: Pt is normally ambulatory with a RW at home. On 2L O2 continuous. Hearing / Speech / Vision Hearing: Within Functional Limits Speech: Within Functional Limits Current Vision: Wears glasses only for reading Cognition Orientation Level: Oriented X4 Sensation Overall Sensation Status: Within Functional Limits Bed Mobility Rolling: Modified independent (c/o back pain) Supine to Sit: Min assist Sit to Supine: Mod assist (assist to lift LE's up into the bed.) Other: Antalgic bed mobility. Transfers Sit to Stand: Min assist Stand to Sit: Contact guard assist Toilet Transfers: Min assist Other: antalgic transfers Gait Base of Support: Wide Pattern: Decreased ramin (forward flexed posture with UE weight bearing on the walker) Gait Assistance: Contact guard assist Assistive Device: Rolling walker Other: Pt in bathroom upon my arrival. After BM, I assisted the pt to stand, complete perineal cleaning, and amb back to bed. Balance Sitting Balance: Static: Good Sitting Balance: Dynamic: Fair Standing Balance: Static: Fair Standing Balance: Dynamic: Fair (fair-) RUE Assessment: Within Functional Limits LUE Assessment: Within Functional Limits RLE Assessment: Exceptions to WFL RLE Strength RLE Overall Strength: Deficits (anti-gravity strength, but increased back pain with LE AROM) LLE Assessment: Exceptions to WFL LLE Strength LLE Overall Strength: Deficits (anti-gravity strength, but increased back pain with LE AROM) Activity Tolerance Endurance: Tolerates <30 minutes activity WITHOUT vital sign changes Other: On 2L O2. Becomes easily SOB with activity. Plan Physical Therapy Care Plan Physical Therapy Care Plan (Active) Template: PT - Physical Therapy Problem: Activity Tolerance Dates: Start: 10/23/23 Disciplines: PT Goal: Tolerate 30 minutes of activity WITH rest breaks Dates: Start: 10/23/23 Expected End: 10/31/23 Description: Goal Description: Pt will tolerate gentle supine and seated LE ex's, mobility with rest breaks to increase activity tolerance for home mobility. Disciplines: PT Problem: Bed Mobility Dates: Start: 10/23/23 Disciplines: PT Goal: Patient will perform bed mobility with Supervision Dates: Start: 10/23/23 Expected End: 10/31/23 Description: Goal Description: Disciplines: PT Problem: Gait Dates: Start: 10/23/23 Disciplines: PT Goal: Patient will perform gait with Contact Guard Dates: Start: 10/23/23 Expected End: 10/31/23 Description: With a RW x 50_feet, CGA to allow household mobility Goal Description: Disciplines: PT Problem: Standing Balance Dates: Start: 10/23/23 Disciplines: PT Goal: Improve balance to good Dates: Start: 10/23/23 Expected End: 10/31/23 Description: Static: Pt to demo good static standing balance with UE support on DME Disciplines: PT Problem: Strength Dates: Start: 10/23/23 Disciplines: PT Goal: Improve strength Dates: Start: 10/23/23 Expected End: 10/31/23 Description: Of extremity/ location: increase strength LE's to 4/5 To facilitate: increased ease with transfers and gait Disciplines: PT Problem: Transfers Dates: Start: 10/23/23 Disciplines: PT Goal: Patient will perform transfers with Stand By Assist Dates: Start: 10/23/23 Expected End: 10/31/23 Description: Goal Description: Disciplines: PT Physical Therapy Care Plan (Resolved) There are no resolved problems. Principal Problem: T12 compression fracture ([facility]) Active Problems: Benign essential hypertension Chronic diastolic congestive heart failure ([facility]) COPD (chronic obstructive pulmonary disease) ([facility] Dyslipidemia Type 2 diabetes mellitus with hyperglycemia, without long-term current use of insulin ([facility]) * Plan of Care - Erma Spring RN - 10/23/2023 10:22 AM EDT Problem: Pain Goal: Patient goal is pain score less than 4, able to rest, and participant in treatment plan as appropriate Description: INTERVENTIONS: 1. Encourage patient or legal customer account representative to report early pain and ask for pain medicine when needed 2. Assess pain using appropriate pain scale and include the scale used when documenting 3. Administer analgesics based on type and severity of pain and evaluate response within appropriate time frame 4. Implement non-pharmacological measures as appropriate and evaluate response 5. Consider cultural and social influences on pain and pain management 6. Notify LIP if interventions ineffective or patient reports new pain 7. Monitor vital signs including pulse ox, end-tidal CO2 based on pain intervention 8. Reassess pain per policy 9. Teach patient or legal customer account representative interventions for comforting Outcome: Progressing Note: Evaluation of progress towards goal: patient understands pain scale. Patient knows to call out when needing pain medication. Problem: Safety Goal: Patient will be injury free during hospitalization Description: INTERVENTIONS: 1. Assess patient's risk for falls and implement fall prevention plan of care per policy 2. Provide and maintain a safe environment 3. Proper use of double Identifiers 4. Medication administration using the 5 rights 5. Hand hygiene 6. Specimens are labeled at the bedside 7. Instruct patient/ patient customer account representative about use of safety devices 8. Include patient/ patient customer account representative in decisions related to safety Outcome: Progressing Note: Evaluation of progress towards goal: patient calls out for help with walking for his safety due to recent fall. Patient knows to use call light when needing other help as well. * Plan of Care - Kianna Fonseca RN - 10/23/2023 5:13 AM EDT Problem: Pain Goal: Patient goal is pain score less than 4, able to rest, and participant in treatment plan as appropriate Description: INTERVENTIONS: 1. Encourage patient or legal customer account representative to report early pain and ask for pain medicine when needed 2. Assess pain using appropriate pain scale and include the scale used when documenting 3. Administer analgesics based on type and severity of pain and evaluate response within appropriate time frame 4. Implement non-pharmacological measures as appropriate and evaluate response 5. Consider cultural and social influences on pain and pain management 6. Notify LIP if interventions ineffective or patient reports new pain 7. Monitor vital signs including pulse ox, end-tidal CO2 based on pain intervention 8. Reassess pain per policy 9. Teach patient or legal customer account representative interventions for comforting Outcome: Progressing Note: Evaluation of progress towards goal: Pt able to report pain according to 0/10 pain scale. Medicating patient for pain per orders. Continue to monitor. Problem: Safety Goal: Patient will be injury free during hospitalization Description: INTERVENTIONS: 1. Assess patient's risk for falls and implement fall prevention plan of care per policy 2. Provide and maintain a safe environment 3. Proper use of double Identifiers 4. Medication administration using the 5 rights 5. Hand hygiene 6. Specimens are labeled at the bedside 7. Instruct patient/ patient customer account representative about use of safety devices 8. Include patient/ patient customer account representative in decisions related to safety Outcome: Progressing Note: Evaluation of progress towards goal: Safety measures initiated/maintained. Pt remains safe from harm/injury/falls. Continue to monitor. Problem: Infection Goal: Absence of infection during hospitalization Description: Interventions: 1. Assess and monitor for signs and symptoms of infection 2. Monitor lab/diagnostic results 3. Monitor all insertion sites i.e., indwelling lines, tubes and drains 4. Monitor endotracheal (as able) and nasal secretions for changes in amount and color 5. Administer medications as ordered 6. Instruct and encourage patient and family to use good hand hygiene technique 7. Identify and instruct patient/patient customer account representative in use of appropriate isolation precautionsfor identified infection/symptoms 8. Provide and discuss with patient/patient customer account representative on educational MDRO sheet 9. Encourage and monitor nutritional status daily and consult court monitor if indicated 10. Implement neutropenic guidelines as needed 11. Review exposure to history of communicable disease and recent travel history on admission 12. Encourage annual influenza vaccine 13. Encourage pneumonia vaccine Outcome: Progressing Note: Evaluation of progress towards goal: Patient VS WNL, remains afebrile for shift. Continue to monitor. * Plan of Care - Stephenie Suárez RN - 10/22/2023 5:16 PM EDT Problem: Pain Goal: Patient goal is pain score less than 4, able to rest, and participant in treatment plan as appropriate Description: INTERVENTIONS: 1. Encourage patient or legal customer account representative to report early pain and ask for pain medicine when needed 2. Assess pain using appropriate pain scale and include the scale used when documenting 3. Administer analgesics based on type and severity of pain and evaluate response within appropriate time frame 4. Implement non-pharmacological measures as appropriate and evaluate response 5. Consider cultural and social influences on pain and pain management 6. Notify LIP if interventions ineffective or patient reports new pain 7. Monitor vital signs including pulse ox, end-tidal CO2 based on pain intervention 8. Reassess pain per policy 9. Teach patient or legal customer account representative interventions for comforting Outcome: Progressing Note: Evaluation of progress towards goal: staying the same taking pain pill Problem: Safety Goal: Patient will be injury free during hospitalization Description: INTERVENTIONS: 1. Assess patient's risk for falls and implement fall prevention plan of care per policy 2. Provide and maintain a safe environment 3. Proper use of double Identifiers 4. Medication administration using the 5 rights 5. Hand hygiene 6. Specimens are labeled at the bedside 7. Instruct patient/ patient customer account representative about use of safety devices 8. Include patient/ patient customer account representative in decisions related to safety Outcome: Progressing Note: Evaluation of progress towards goal: calls out Problem: Infection Goal: Absence of infection during hospitalization Description: Interventions: 1. Assess and monitor for signs and symptoms of infection 2. Monitor lab/diagnostic results 3. Monitor all insertion sites i.e., indwelling lines, tubes and drains 4. Monitor endotracheal (as able) and nasal secretions for changes in amount and color 5. Administer medications as ordered 6. Instruct and encourage patient and family to use good hand hygiene technique 7. Identify and instruct patient/patient customer account representative in use of appropriate isolation precautionsfor identified infection/symptoms 8. Provide and discuss with patient/patient customer account representative on educational MDRO sheet 9. Encourage and monitor nutritional status daily and consult court monitor if indicated 10. Implement neutropenic guidelines as needed 11. Review exposure to history of communicable disease and recent travel history on admission 12. Encourage annual influenza vaccine 13. Encourage pneumonia vaccine Outcome: Progressing Note: Evaluation of progress towards goal: afebrile Problem: Knowledge Deficit Goal: Patient/patient customer account representative demonstrates understanding of disease process, treatment plan,medications, and discharge instructions Description: INTERVENTIONS 1. Complete learning assessment and assess knowledge base 2. Provide teaching at level of understanding 3. Provide teaching via preferred learning method(s) Outcome: Progressing Note: Evaluation of progress towards goal: He understands his treatment Problem: Discharge Planning Goal: Discharge to post-acute care, other facility, or home with appropriate resources Description: Patient's goal is: INTERVENTIONS 1. Conduct assessment to determine patient/family and health care team treatment goals, and need for post-acute services based on payer coverage, community resources, and patient preferences, and barriers to discharge 2. Coordinate with Social work, Care Navigation, and Utilization Review to arrange appropriate level of services according to patient's needs based on patient preference and payer coverage in collaboration with the physician and health care team 3. Address psychosocial, clinical, and financial barriers to discharge as identified in assessment in conjunction with the patient/family and health care team 4. Consult appropriate ancillary services (i.e.. PT/OT/ST, etc) as needed 5. Communicate with and update the patient/family, physician, and health care team regarding progress on the discharge plan 6. Identify discharge learning needs (meds, wound care, etc). 7. Arrange for needed discharge transportation as appropriate Outcome: Progressing Note: Evaluation of progress towards goal: Awaiting surgery Problem: Glucose Imbalance Goal: Clinical indication of glucose balance is achieved Description: Patient's goal is: INTERVENTIONS 1. Monitor blood glucose levels as ordered 2. Administer medications as ordered 3. Notify physician of ineffective treatment plan Outcome: Progressing Note: Evaluation of progress towards goal: Checking glucose levels Problem: Hemodynamic Status Goal: Maintains optimal cardiac output and hemodynamic stability Description: Patient's goal is: INTERVENTIONS 1. Assess and monitor patient's heart rate, rhythm, respiratory rate, peripheral pulses, capillary refill, color, body temperature, intake and output 2. Monitor labs and diagnostic testing 3. Observe for signs of chest pain (note location, duration, severity, radiation and associated symptoms such as diaphoresis, nausea, indigestion) 4. Monitor for signs and symptoms of heart failure (i.e. shortness of breath, edema of feet/ankles/legs, rapid irregular heart rate, coughing, wheezing, white/pink blood tinged sputum, sudden weight gain, chest pain) 5. Plan activities to conserve energy 6. Monitor for signs and symptoms of bleeding Outcome: Progressing Note: Evaluation of progress towards goal: Stable Additional Comments: * PT/OT/RESEARCH TEST ENGINE OPERATOR - Ginger Lorenzo PT - 10/22/2023 11:25 AM EDT Physical Therapy CANCEL - Refusal (pt refusing PT due to back pain. PT offered bed level activity but pt continued to refuse. Pt stated he is not getting up until he has back surgery.) * Plan of Care - Ivan Kenney RN - 10/22/2023 2:12 AM EDT Problem: Pain Goal: Patient goal is pain score less than 4, able to rest, and participant in treatment plan as appropriate Description: INTERVENTIONS: 1. Encourage patient or legal customer account representative to report early pain and ask for pain medicine when needed 2. Assess pain using appropriate pain scale and include the scale used when documenting 3. Administer analgesics based on type and severity of pain and evaluate response within appropriate time frame 4. Implement non-pharmacological measures as appropriate and evaluate response 5. Consider cultural and social influences on pain and pain management 6. Notify LIP if interventions ineffective or patient reports new pain 7. Monitor vital signs including pulse ox, end-tidal CO2 based on pain intervention 8. Reassess pain per policy 9. Teach patient or legal customer account representative interventions for comforting Outcome: Progressing Note: Evaluation of progress towards goal: pt medicated for back pain as needed, effective, rest and reposition for comfort cont, await surgical intervention Problem: Safety Goal: Patient will be injury free during hospitalization Description: INTERVENTIONS: 1. Assess patient's risk for falls and implement fall prevention plan of care per policy 2. Provide and maintain a safe environment 3. Proper use of double Identifiers 4. Medication administration using the 5 rights 5. Hand hygiene 6. Specimens are labeled at the bedside 7. Instruct patient/ patient customer account representative about use of safety devices 8. Include patient/ patient customer account representative in decisions related to safety Outcome: Progressing Note: Evaluation of progress towards goal: pt remains safe, free from falls or injury, call light within reach, bed alarm on, hourly rounding to meet care needs cont Problem: Knowledge Deficit Goal: Patient/patient customer account representative demonstrates understanding of disease process, treatment plan,medications, and discharge instructions Description: INTERVENTIONS 1. Complete learning assessment and assess knowledge base 2. Provide teaching at level of understanding 3. Provide teaching via preferred learning method(s) Outcome: Progressing Note: Evaluation of progress towards goal: pt updated on POC, cont to educate and update as needed * Plan of Care - Natalie Montelongo RN - 10/21/2023 6:27 PM EDT Problem: Pain Goal: Patient goal is pain score less than 4, able to rest, and participant in treatment plan as appropriate Description: INTERVENTIONS: 1. Encourage patient or legal customer account representative to report early pain and ask for pain medicine when needed 2. Assess pain using appropriate pain scale and include the scale used when documenting 3. Administer analgesics based on type and severity of pain and evaluate response within appropriate time frame 4. Implement non-pharmacological measures as appropriate and evaluate response 5. Consider cultural and social influences on pain and pain management 6. Notify LIP if interventions ineffective or patient reports new pain 7. Monitor vital signs including pulse ox, end-tidal CO2 based on pain intervention 8. Reassess pain per policy 9. Teach patient or legal customer account representative interventions for comforting Outcome: Progressing Note: Evaluation of progress towards goal: Pt able to report pain according to 0/10 pain scale. Medicating patient for pain per orders. Continue to monitor. Problem: Safety Goal: Patient will be injury free during hospitalization Description: INTERVENTIONS: 1. Assess patient's risk for falls and implement fall prevention plan of care per policy 2. Provide and maintain a safe environment 3. Proper use of double Identifiers 4. Medication administration using the 5 rights 5. Hand hygiene 6. Specimens are labeled at the bedside 7. Instruct patient/ patient customer account representative about use of safety devices 8. Include patient/ patient customer account representative in decisions related to safety Outcome: Progressing Note: Evaluation of progress towards goal: Safety measures initiated/maintained. Pt remains safe from harm/injury/falls. Continue to monitor. Problem: Infection Goal: Absence of infection during hospitalization Description: Interventions: 1. Assess and monitor for signs and symptoms of infection 2. Monitor lab/diagnostic results 3. Monitor all insertion sites i.e., indwelling lines, tubes and drains 4. Monitor endotracheal (as able) and nasal secretions for changes in amount and color 5. Administer medications as ordered 6. Instruct and encourage patient and family to use good hand hygiene technique 7. Identify and instruct patient/patient customer account representative in use of appropriate isolation precautionsfor identified infection/symptoms 8. Provide and discuss with patient/patient customer account representative on educational MDRO sheet 9. Encourage and monitor nutritional status daily and consult court monitor if indicated 10. Implement neutropenic guidelines as needed 11. Review exposure to history of communicable disease and recent travel history on admission 12. Encourage annual influenza vaccine 13. Encourage pneumonia vaccine Outcome: Progressing Note: Evaluation of progress towards goal: no fever. Continue to monitor. Problem: Knowledge Deficit Goal: Patient/patient customer account representative demonstrates understanding of disease process, treatment plan,medications, and discharge instructions Description: INTERVENTIONS 1. Complete learning assessment and assess knowledge base 2. Provide teaching at level of understanding 3. Provide teaching via preferred learning method(s) Outcome: Progressing Note: Evaluation of progress towards goal: plan of care discussed with pt Problem: Discharge Planning Goal: Discharge to post-acute care, other facility, or home with appropriate resources Description: Patient's goal is: INTERVENTIONS 1. Conduct assessment to determine patient/family and health care team treatment goals, and need for post-acute services based on payer coverage, community resources, and patient preferences, and barriers to discharge 2. Coordinate with Social work, Care Navigation, and Utilization Review to arrange appropriate level of services according to patient's needs based on patient preference and payer coverage in collaboration with the physician and health care team 3. Address psychosocial, clinical, and financial barriers to discharge as identified in assessment in conjunction with the patient/family and health care team 4. Consult appropriate ancillary services (i.e.. PT/OT/ST, etc) as needed 5. Communicate with and update the patient/family, physician, and health care team regarding progress on the discharge plan 6. Identify discharge learning needs (meds, wound care, etc). 7. Arrange for needed discharge transportation as appropriate Outcome: Progressing Note: Evaluation of progress towards goal: pt currently lives at home alone. Therapy ordered to make recommendations but pt declined today. Problem: Glucose Imbalance Goal: Clinical indication of glucose balance is achieved Description: Patient's goal is: INTERVENTIONS 1. Monitor blood glucose levels as ordered 2. Administer medications as ordered 3. Notify physician of ineffective treatment plan Outcome: Progressing Note: Evaluation of progress towards goal: no insulin coverage needed Goal: Patient's discharge needs are met Description: Patient's goal is: INTERVENTIONS 1. Assess patient for self-management skills 2. Encourage participation in diabetes management 3. Identify potential discharge barriers on admission and throughout hospital stay 4. Involve patient/S.O. in discharge planning process 5. Communicate referral to music educator as appropriate 6. Communicate referral to court monitor as appropriate 7. Collaborate with case management/secondary social studies teacher for discharge needs Outcome: Progressing Note: Evaluation of progress towards goal: Problem: Moderate - High Risk Fall Score Description: Bell Fall Score of =/> 25 or indicated by [facility] Assessment Goal: Patient should be free from fall Description: Interventions: 1. [place] to environment 2. Hourly rounds addressing the 4 P's (Pain, Positioning, Possessions, Potty) 3. Clear area of hazards (spills, clutter, electrical cords, unnecessary equipment) 4. Place equipment (bed & TV controls, call light, phone, urinal) within reach 5. Encourage patient to wear glasses and hearing aides as appropriate 6. Maintain bed in lowest position 7. Lock wheels on bed/wheelchair 8. Provide adequate lighting, including night light 9. Assess need for additional bedding, food/fluids, pain med's prior to sleep/routinely 10. Provide gripper slippers or personal non-skid footwear 11. Teach patient and patient customer account representative to maintain environment for safety and engage in all aspects of fall prevention program 12. Remind patient to call for help before getting out of bed 13. Initiate bed/chair/exit alarms supportive devices as appropriate, (chair wedge, no-skid floor mat, raised edge mattress, hip protectors) 14. Locate patient bed assignment for optimal visualization 15. Evaluate and identify Safe Patient Handling Equipment needs 16. Provide supervision when out of bed or chair 17. Utilize gait belt as needed to assist with ambulation 18. Place adaptive equipment (cane, walker) within reach 19. Request patient customer account representative bring adaptive equipment/mobility aids from home or obtain and provide as needed 20. Consult pharmacy regarding effects of med's affecting mobility, cognition, and alternatives 21. Obtain physician order for PT if risk factors associated with mobility are present 22. Obtain physician order for OT as appropriate 23. Utilize diversional activities 24. Educate patient and patient customer account representative how to maintain a safe environment during visitationtimes (notify nurse prior to leaving bedside) 25. Consider appropriateness of medical or non-bilingual medical assistant 26. Set up voiding schedule as appropriate (every 2 hours) Outcome: Progressing Note: Evaluation of progress towards goal: Safety measures initiated/maintained. Pt remains safe from harm/injury/falls. Continue to monitor. Problem: Hemodynamic Status Goal: Maintains optimal cardiac output and hemodynamic stability Description: Patient's goal is: INTERVENTIONS 1. Assess and monitor patient's heart rate, rhythm, respiratory rate, peripheral pulses, capillary refill, color, body temperature, intake and output 2. Monitor labs and diagnostic testing 3. Observe for signs of chest pain (note location, duration, severity, radiation and associated symptoms such as diaphoresis, nausea, indigestion) 4. Monitor for signs and symptoms of heart failure (i.e. shortness of breath, edema of feet/ankles/legs, rapid irregular heart rate, coughing, wheezing, white/pink blood tinged sputum, sudden weight gain, chest pain) 5. Plan activities to conserve energy 6. Monitor for signs and symptoms of bleeding Outcome: Progressing Note: Evaluation of progress towards goal: vital signs stable Problem: Excessive Fluid Volume Goal: Fluid and electrolyte balance are achieved/maintained Description: INTERVENTIONS 1. Monitor vitals signs oxygen saturation, respiratory status to include rate, depth, effort, and lung sounds, ) urine color, labs, edema, jugular venous distention, and mental status 2. Monitor patient's weight 3. Monitor intake and output 4. Elevate head of bed 30 degrees 5. Turn patient 6. Monitor low sodium and fluid restriction diet per physician order 7. Collaborate with interdisciplinary team and initiate plan and interventions as ordered Outcome: Progressing Note: Evaluation of progress towards goal: continue to monitor Problem: Inadequate Gas Exchange Goal: Patient is adequately oxygenated and ventilation is improved Description: Patient's goal is: INTERVENTIONS 1. Monitor vital signs, oxygen saturation, respiratory status to include rate, depth, effort, lung sounds, mental status, cyanosis, and labs (ABGs) 2. Administer oxygen as indicated 3. Position patient to optimize gas exchange 4. Instruct patient to turn, cough, and deep breathe; encourage incentive spirometer if indicated 5. Collaborate with Respiratory Therapy for inhaled medication and therapeutic adjuncts 6. Assess skin when indicated 7. Coordinate care and interventions to conserve energy 8. Educate and offer resources for tobacco cessation, if indicated Outcome: Progressing Flowsheets (Taken 10/21/2023 [id number]) Chest Assessment: Chest expansion symmetrical Trachea midline Note: Evaluation of progress towards goal: diminished Problem: Activity Intolerance/Impaired Mobility Goal: Mobility/activity is maintained at optimum level for patient Description: Patient's goal is: INTERVENTIONS 1. Assess and monitor patient barriers to mobility and need for assistive/adaptive devices 2. Assess patient's emotional response to limitations 3. Collaborate with interdisciplinary teams and initiate plans and interventions as ordered 4. Encourage independent activity per tolerance 5. Maintain proper body alignment 6. Perform active/passive ROM as tolerated/ordered 7. Coordinate activities to conserve energy 8. Reposition patient 9. Ensure adequate rest/sleep time Outcome: Progressing Note: Evaluation of progress towards goal: due to increased back pain awaiting kyphoplasty T12 Problem: Nutrition Goal: Patient's nutritional intake is adequate Description: Patient's goal is: INTERVENTIONS 1. Assess and monitor food intake and supplements, patient food preferences, nausea, vomiting, labs, oral cavity (gums, teeth, tongue, mucosa), proper denture fit, and cultural beliefs 2. Monitor for signs of hypoglycemia and hyperglycemia 3. Collaborate with interdisciplinary team and initiate plan and interventions as ordered 4. Monitor patient's weight 5. Assist patient with meals/food selection 6. Assist patient with eating 7. Allow adequate time for meals 8. Provide pleasant environment during mealtime 9. Increase social contact during mealtimes 10. Plan activities to conserve energy 11. Encourage/perform oral hygiene as appropriate 12. Encourage patient to take dietary supplement as ordered 13. Collaborate with clinical court monitor 14. Include patient/ patient's customer account representative in decisions related to nutrition Outcome: Progressing Note: Evaluation of progress towards goal: adequate Problem: Readmission Risk Reduction Goal: Readmission Risk Assessment Description: Utilize readmission risk score in the development of discharge plan INTERVENTIONS: 1. Discuss patient's risk of readmission at multidisciplinary discharge transition rounds. 2. Comprehensive assessment of patient's risk of readmission (functional, psychosocial, cognitive). 3. Collaborate with patient / caregiver to identify needs. 4. Handoff to next level of care provider (home health care coordinator, PCP, home care). 5. Complete follow up phone call within 72 hours. Outcome: Progressing Note: Evaluation of progress towards goal: Goal: Discharge Medication Plan Description: Develop a plan to ensure that medications are obtained at the time of discharge INTERVENTIONS: 1. Utilize outpatient pharmacy to deliver medications to patient prior to discharge, where available. 2. Ensure that prescriptions are sent to the patient's pharmacy of choice prior to patient leaving the hospital. If possible, confirm authorizations and co-pays and communicate to patient. 3. During discharge follow-up phone call, confirm that prescriptions have been filled. Outcome: Progressing Note: Evaluation of progress towards goal: Goal: Follow-Up Appointments Description: Schedule patient-centric follow-up appointments prior to discharge INTERVENTIONS: 1. Identify recommended / appropriate timeframes for follow-up. 2. Discuss transportation needs and scheduling preferences with patient. 3. Verify that all follow-up appointments are scheduled prior to discharge. Outcome: Progressing Note: Evaluation of progress towards goal: Goal: Discharge Medication Reconciliation Description: Review discharge medication reconciliation for accuracy INTERVENTIONS: 1. Include last dose date / time on the discharge medication list. 2. Utilize available resources to identify and address issues. 3. Consider use of a Discharge Time-Out or Discharge Final Check. 4. Refer to homecare, as appropriate, for home medication review. Outcome: Progressing Note: Evaluation of progress towards goal: Goal: Discharge Instructions Description: Provide accurate and complete discharge instructions, taking into account health literacy of the patient INTERVENTIONS: 1. Assess patient's learning needs including health literacy. 2. Provide disease-specific education as appropriate. 3. Consider use of teach-back to verify patient / caregiver understanding. 4. Verify understanding of discharge instructions. 5. Consider use of a Discharge Time-Out or Discharge Final-Check. Outcome: Progressing Note: Evaluation of progress towards goal: Additional Comments: * PT/OT/RESEARCH TEST ENGINE OPERATOR - Иван Price, Student PT - 10/21/2023 3:39 PM EDT Physical Therapy CANCEL - Refusal Pt refused therapy at this time due to too much pain in his back. PT will check back later. Associated attestation - Beulah Kohli, PT - 10/21/2023 3:45 PM EDT I have reviewed and agree with this note and education documentation for this visit. * PT/OT/RESEARCH TEST ENGINE OPERATOR - Monika Redman OT/L - 10/21/2023 3:38 PM EDT Occupational Therapy CANCEL - Refusal Patient politely refused at this time reporting his back hurts too much to move. OT to check back as able and patient willing. * Discharge Planning Note - SHERINE Lopes - 10/21/2023 1:49 PM EDT DISCHARGE PLANNING NOTE Pts POC discussed in transition rounds and per report, pt being considered for kyphoplasty procedure with therapy evaluations post procedure. At this time, pt plans on discharge home w/[facility], declines interest in SNF services. SW will follow. * Significant Event - Matt Montemayor MD - 10/21/2023 7:51 AM EDT Just received phone call from the surgeon who is okay to do kyphoplasty while on Brilinta and bloodthinners, understanding patient will be at high-risk. No absolute cardiac contraindications for the planned surgery understanding he will be at high-risk. Will follow. Thank you. Matt Montemayor MD, [facility] * Plan of Care - Rebecca Gil RN - 10/21/2023 4:47 AM EDT Problem: Pain Goal: Patient goal is pain score less than 4, able to rest, and participant in treatment plan as appropriate Description: INTERVENTIONS: 1. Encourage patient or legal customer account representative to report early pain and ask for pain medicine when needed 2. Assess pain using appropriate pain scale and include the scale used when documenting 3. Administer analgesics based on type and severity of pain and evaluate response within appropriate time frame 4. Implement non-pharmacological measures as appropriate and evaluate response 5. Consider cultural and social influences on pain and pain management 6. Notify LIP if interventions ineffective or patient reports new pain 7. Monitor vital signs including pulse ox, end-tidal CO2 based on pain intervention 8. Reassess pain per policy 9. Teach patient or legal customer account representative interventions for comforting Outcome: Progressing Note: Evaluation of progress towards goal: pt able to report pain using 0-10 scale, PRN medicationsadministered as ordered, continue to monitor Problem: Safety Goal: Patient will be injury free during hospitalization Description: INTERVENTIONS: 1. Assess patient's risk for falls and implement fall prevention plan of care per policy 2. Provide and maintain a safe environment 3. Proper use of double Identifiers 4. Medication administration using the 5 rights 5. Hand hygiene 6. Specimens are labeled at the bedside 7. Instruct patient/ patient customer account representative about use of safety devices 8. Include patient/ patient customer account representative in decisions related to safety Outcome: Progressing Note: Evaluation of progress towards goal: pt remains injury free this shift, continue to monitor * Discharge Planning Note - Celine Houser - 10/20/2023 4:03 PM EDT DISCHARGE PLANNING NOTE Referral sent to [facility] ([place]- P# ; F# ) ([place], [place] P# ; F#) * Discharge Planning Note - SHERINE Lopes - 10/20/2023 3:34 PM EDT Images from the original note were not included. 10/20/23 1527 Discharge Disposition Discharge Disposition Home with Home Health County Information County of Residence Other (comment) Patient Information Primary Caregiver Self Support System Immediate family Stressors Type of stressor Health issues Referral To Community Resources Denies needs Discharge Planning Living Arrangements Alone Support Systems Family members;Children Type of Residence Private residence Private Residence [place] Residence Accessibility Steps into home Number of Steps 2 Home Care Services Yes Type of Home Care Services Nurse visit Community Agencies Currently Utilized Established Home care;Established Durable Medical Equipment Provider Provider Name [facility] Provided [facility] Established Durable Medical Equipment Provider [facility] Established DME Comments rolling walker; Home oxygen Patient expects to be discharged to: home w/self care and home care services Does the patient need discharge transport arranged? No DISCHARGE PLANNING NOTE SW receives referral and reviews chart. Pt is a 35 % readmission risk. SW introduces self/role to pt who presents reclining in bed, alert, ox3, wearing oxygen. Pt states he is independent w/ADLs and IADLs including driving. Pt reports access to food/RX and has a PCP appt scheduled on 11/02/23. Pt states he has 2 ltr home O2 via [facility]. Pt declines interest in SNF services and states he is active w/[facility]. Pt plans on discharge home w/[facility] and states son is supportive as needed. SW provides brochure for o/p COPD clinic. Pt declines further questions/needs. SW tasks referral to [facility]. SW following. Services Requested: Services Requested Discharge Disposition: Home with home health services Facility/Service Name: [facility] Facility/Service Fax number: [phone] Facility/Service Does the patient need discharge transportation arranged?: No Patient choice offered: Yes List Provided: Patient declined Patient Declined: Active with Provider Initial DC Assessment Completed: Yes DC Planning Complete Discharge Milestones: Yes Patient Goals: Patient/Caregiver Goals Patient/Caregiver Goals: Home with Home Fpc with Home Care (Check ALL that Apply): Oxygen Goals: Goals discharge home (pt-stated) Evaluation of progress towards goal: Patient plans on discharge home w/self care and home care services. documented in this encounterSelect [facility] YoungstownFluentify [facility] [phone] Plan of care note * Plan of Care - Karen Rodas RN - 10/25/2023 8:21 PM EDT Problem: Pain Goal: Patient goal is pain score less than 4, able to rest, and participant in treatment plan as appropriate Description: INTERVENTIONS: 1. Encourage patient or legal customer account representative to report early pain and ask for pain medicine when needed 2. Assess pain using appropriate pain scale and include the scale used when documenting 3. Administer analgesics based on type and severity of pain and evaluate response within appropriate time frame 4. Implement non-pharmacological measures as appropriate and evaluate response 5. Consider cultural and social influences on pain and pain management 6. Notify LIP if interventions ineffective or patient reports new pain 7. Monitor vital signs including pulse ox, end-tidal CO2 based on pain intervention 8. Reassess pain per policy 9. Teach patient or legal customer account representative interventions for comforting Outcome: Progressing Note: Evaluation of progress towards goal: Pt able to report pain according to 0/10 pain scale. Medicating patient for pain per orders. Continue to monitor. [facility]09-03-2024 Progress note* Discharge Planning Note - SHERINE Lopes - 10/25/2023 2:38 PM EDT DISCHARGE PLANNING NOTE Per chart review, pt with possible transfer to [facility]. SW following pt progress and will assist w/discharge planning accordingly. Pts current plan is to return home w/[facility]. [facility]09-03-2024 Progress note* PT/OT/RESEARCH TEST ENGINE OPERATOR - CLINTON Muñoz/Cameron - 10/25/2023 2:08 PM EDT Occupational Therapy CANCEL - Deferred (Hold secondary to medical status. Pt with possible [facility] transfer for THIERRY per cardiology.) [facility]09-03-2024 Progress note* Significant Event - EMMA Mckee - 10/25/2023 11:54 AM EDT Case reviewed and discussed briefly with Dr. Ruiz. Had mod-severe AI and mod-severe on prior echo that was completed at time of admission for MRSA bacteremia in July. Prior echo in June at outside hospital had reportedly showed no AI. Recommending transfer to [facility] for THIERRY and further evaluation. Sally Moore PA-C [facility] Card[facility] Structural Heart Program EMMA Mckee 10/25/23 [address] Work Phone: [phone] 230-862509-03-2024 History of Present illness Narrative* Randall Martin MD - 10/25/2023 11:00 AM EDT Images from the original note were not included. Pulmonary Progress Note Patient - Brian Mandel Age - 73 y.o. - 1950 [facility] # - [id number] Date of Admission - 10/20/2023 8:14 AM Consulting Service/Physician Consulting: Consulting Providers Provider Service Specialty Timmy Acosta DO -- Orthopedic Surgery Randall Martin MD Z Pulmonology Pulmonary Medicine Matt Montemayor MD Cardiology Cardiology Primary Care Physician: Melanie Taylor DO REASON FOR VISIT: REVIEW OF SYMPTOMS: Cough - no chest pain- no Shortness of breath - no fever - no Hemoptysis- no Sinus drainage, sore throat - no Abdominal pain - no Nausea, vomiting - no Diarrhea, constipation - no Swelling feet- no Rashes- no Headache - no Events since last visit : None Past Medical History: Past Medical History: Diagnosis Date Acute coronary syndrome [place] Anxiety disorder Chronic back pain Chronic obstructive asthma with exacerbation [place]) COPD (chronic obstructive pulmonary disease) [place]) Diabetes mellitus type 2, controlled ([facility]) Essential hypertension Folate deficiency anemia Heart failure ([facility]) Megaloblastic anemia VT (myocardial infarction) ([facility]) 06/2023 Muscle weakness (generalized) Myocardial infarct ([facility] Obesity Obstructive sleep apnea SARAH (obstructive sleep apnea) Pancytopenia ([facility]) Presence of coronary artery bypass graft stent Shock ([facility]) 10/05/2023 Supplemental oxygen dependent , Past Surgical History: Procedure Laterality Date CARDIAC SURGERY X2 Social History: Social History Socioeconomic History Marital status: Spouse name: Not on file Number of children: Not on file Years of education: Not on file Highest education level: Not on file Occupational History Not on file Tobacco Use Smoking status: Never Smokeless tobacco: Never Vaping Use Vaping status: Never Used Substance and Sexual Activity Alcohol use: Not Currently Comment: last drink 2003 Drug use: Never Sexual activity: Defer Other Topics Concern Not on file Social History Narrative Not on file Social Determinants of Health Financial Resource Strain: Low Risk (07/23/2023) Overall Financial Resource Strain (CARDIA) Difficulty of Paying Living Expenses: Not hard at all Food Insecurity: No Food Insecurity (10/20/2023) Hunger Screening Food Insecurity - Worry: Never True Food Insecurity - Inability: Never True Transportation Needs: No Transportation Needs (10/20/2023) PRAPARE - Transportation Lack of Transportation (Medical): No Lack of Transportation (Non-Medical): No Physical Activity: Insufficiently Active (07/23/2023) Exercise Vital Sign Days of Exercise per Week: 2 days Minutes of Exercise per Session: 10 min Stress: Stress Concern Present (07/23/2023) [employer] [place] [employer] - Occupational Stress Questionnaire Feeling of Stress : Very much Social Connections: Socially Isolated (07/23/2023) Social Connection and Isolation Panel [NHANES] Frequency of Communication with Friends and Family: Three times a week Frequency of Social Gatherings with Friends and Family: Three times a week Attends Confucianist Services: Never Active Member of Clubs or Organizations: No Attends Club or Organization Meetings: Never Marital Status: Interpersonal Safety: Not At Risk (10/20/2023) Humiliation, Afraid, Rape, and Kick questionnaire Fear of Current or Ex-Partner: No Emotionally Abused: No Physically Abused: No Sexually Abused: No Housing Instability: Low Risk (10/20/2023) Housing Instability Housing Instability: No SUBJECTIVE VITALS height is 152.4 cm (5') and weight is 97.5 kg (214 lb 15.2 oz). His oral temperature is 36.6 C (97.9 F). His blood pressure is 123/45 and his pulse is 70. His respiration is 18 and oxygen saturation is 94%. Temperature Range: Temp (24hrs), Av.5 C (97.7 F), Min:36.1 C (97 F), Max:36.7 C (98 F) BP Range: Systolic (24hrs), Av , Min:108 , Max:138 Pulse Range: Pulse Av.6 Min: 55 Max: 77 Respiration Range: Resp Av.7 Min: 14 Max: 26 Current Pulse Ox: Temp: 36.6 C (97.9 F) 24HR Pulse Ox Range: Temp Av.6 C (97.9 F) Min: 36.1 C (97 F) Max: 37.1 C (98.8 F) Oxygen Amount and Delivery: O2 Device: Nasal cannula O2 Flow Rate (L/min): 2 L/min Wt Readings from Last 3 Encounters: 10/24/23 97.5 kg (214 lb 15.2 oz) 10/12/23 105.6 kg (232 lb 12.9 oz) 10/04/23 106.1 kg (234 lb) I/O (24 Hours) Intake/Output Summary (Last 24 hours) at 10/25/2023 1442 Last data filed at 10/25/2023 0556 Gross per 24 hour Intake 1181.12 ml Output 450 ml Net 731.12 ml Exam General Appearance - Awake, alert, in no acute distress HEENT - normocephalic, atraumatic. Neck - Supple, trachea midline Lungs - Fair air entry bilaterally, breath sounds vesicular, no rhonchi, no rales or crackles Cardiovascular - Heart sounds are normal. Regular rate and rhythm. Abdomen - soft, nontender, nondistended, no masses or organomegaly Neurologic - There are no focal motor or sensory deficits Skin - no bruising or bleeding Extremities - no cyanosis, clubbing or edema Meds Current Facility-Administered Medications: acetaminophen (TYLENOL) tablet 650 mg, 650 mg, oral, Q4H PRN, APRIL Lee, 650 mg at 10/22/23 225 atorvastatin (LIPITOR) tablet 20 mg, 20 mg, oral, Nightly, JOSE D Preston CNP, 20 mg at 259 dextrose (GLUTOSE) 40 % gel 15 g, 15 g, oral, PRN, APRIL Lee dextrose 50 % in water (D50W) 50% solution 25 mL, 25 mL, intravenous, PRN, APRIL Lee famotidine (PF) (PEPCID) injection 20 mg, 20 mg, intravenous, Q24H, APRIL Torrez, 20 mg at 10/24/23 225 glucagon HCL injection 1 mg, 1 mg, intramuscular, PRN, APRIL Lee heparin (porcine) injection 5,000 Units, 5,000 Units, intravenous, PRN, Randall Martin MD heparin infusion 60671 units/500 mL in 0.45% NaCl (50 units/mL premix), 300- 3,500 Units/hr, intravenous, Continuous, Randall Martin MD, Stopped at 10/25/23 0708 HYDROcodone-acetaminophen (NORCO) 5-325 mg per tablet 1 tablet, 1 tablet, oral, Q6H PRN, Cindy Cisneros, APRIL, 1 tablet at 10/25/23 0552 insulin lispro (HumaLOG) injection 2-10 Units, 2-10 Units, subcutaneous, TID with meals, APRIL Lee, 2 Units at 10/20/23 1844 insulin lispro (HumaLOG) injection 2-8 Units, 2-8 Units, subcutaneous, Nightly, APRIL Lee magnesium sulfate IVPB 2000 mg/50 mL in iso-osmotic water (40 mg/mL premix), 2,000 mg, intravenous,PRN, APRIL Lee, Stopped at 10/23/23 1935 magnesium sulfate IVPB 4000 mg/100 mL in iso-osmotic water (40 mg/mL premix), 4,000 mg, intravenous, PRN, APRIL Lee, Stopped at 10/20/23 1319 metoprolol succinate XL (TOPROL XL) 24 hr tablet 25 mg, 25 mg, oral, Daily, APRIL Preston, 25 mg at 10/24/23 0829 ondansetron (PF) (ZOFRAN) injection 4 mg, 4 mg, intravenous, Q8H PRN, APRIL Lee potassium chloride (K-TAB,KLOR-CON) CR tablet 30-40 mEq, 30-40 mEq, oral, PRN, 30 mEq at 10/22/23 1102 OR potassium chloride (KAYCIEL) 20 mEq/15 mL solution 30-40 mEq, 30-40 mEq, oral, PRN, APRIL Bravo sodium chloride 0.9 % flush 3 mL, 3 mL, intravenous, PRN, APRIL Lee sodium chloride 0.9 % flush 3 mL, 3 mL, intravenous, Q12H LYNNDeanna APRN-CNP, 3 mL at 10/24/23 0900 sodium chloride 0.9 % flush bag, 25 mL, intravenous, PRNDeanna APRN-CNP sodium chloride 0.9 % infusion, 20 mL/hr, intravenous, Continuous PRNDeanna APRN-CNP, Last Rate: 20 mL/hr at 10/25/23 0602, 20 mL/hr at 10/25/23 06 ticagrelor (BRILINTA) tablet 90 mg, 90 mg, oral, Q12H LYNN, APRIL Torrez, 90 mg at 10/24/23 5435 ALLERGIES: No Known Allergies Results from last 3 days Lab Units 10/25/23 0538 10/24/23 0621 10/23/23 2321 10/23/23 1018 10/23/23 0246 10/22/23 1509 BUN mg/dL 7 9 -- -- 9 -- CREATININE mg/dL 0.93 1.05 -- -- 1.18 -- POTASSIUM mmol/L 3.9 4.2 -- -- 4.2 4.1 CO2 mmol/L 28 25 -- -- 27 -- CHLORIDE mmol/L 106 104 -- -- 106 -- MAGNESIUM mg/dL 1.8 2.2 2.4 1.7* 1.7* -- AST U/L 27 41 -- -- 27 -- ALT U/L 23 27 -- -- 22 -- ALK PHOS U/L 152* 174* -- -- 120 -- No data from last 3 days. Results from last 3 days Lab Units 10/25/23 0538 10/25/23 0019 10/24/23 0621 10/23/23 0246 WBC X10E9/L 6.6 -- 10.0 7.7 HEMOGLOBIN g/dL 7.6* 7.5* 8.7* 8.1* HEMATOCRIT % 22.9* -- 26.2* 24.1* PLATELETS X10E9/L 152 -- 188 159 MCV fL 99 -- 99 98 MCH pg 32.8 -- 32.8 33.1 MCHC g/dL 33.1 -- 33.2 33.8 RDW % 18.3* -- 18.0* 18.4* EOS ABS AUTO X10E9/L 0.4 -- 0.6* 0.5* Microbiology Results No results found for the last 168 hours. Glucose Results from last 7 days Lab Units 10/25/23 1205 10/25/23 1031 10/25/23 0538 10/24/23 2107 10/24/23 1614 10/24/23 1156 10/24/23 0746 10/24/23 0621 10/23/23200510/23/23 1702 10/23/23 1152 10/23/23 0807 BEDSIDE GLUCOSE mg/dL 98 92 -- 121* 101* 106* 110* -- 135* 127* 91 88 GLUCOSE mg/dL -- -- 108* -- -- -- -- 125* -- -- -- -- I/O last 3 completed shifts: In: 1541.1 [P.O.:360; I.V.:1131.2; IV Piggyback:49.9] Out: 1450 [Urine:1450] Microbiology Results No results found for the last 168 hours. Lines/Drains Peripheral IV 10/20/23 Left Antecubital (Active) Line Status Flushed;Saline locked 10/25/23 0830 Site Assessment Clean;Dry;Intact 10/25/23 08 Dressing Type Occlusive;Transparent 10/25/23 0830 Dressing Status Clean;Dry;Intact 10/25/23 08 Dressing Intervention Dressing changed 10/24/23 0015 Specimen Obtained Yes 10/20/23 0144 Specimen Status Sent for analysis 10/20/23 0144 Amount Drawn (mL) 10 mL 10/20/23 0144 Dressing Change Due (Non-Gauze) 10/27/23 10/20/23 0144 Peripheral IV 10/24/23 Right Antecubital (Active) Line Status Blood return noted;Infusing 10/25/23 1030 Site Assessment Clean;Dry;Intact 10/25/23 08 Dressing Type Occlusive;Transparent 10/25/23 08 Dressing Status Clean;Dry;Intact 10/25/23 0830 No results found. Echo limited W/O contrast Result Date: 10/21/2023 Left Ventricle: Systolic function is normal with an ejection fraction of 60-65%. The quantitative EF by 2D Hutchinson biplane is 63%. No obvious regional wall motion abnormalities. Pericardium: There isno pericardial effusion. Echo limited W/ contrast Result Date: 09/08/2023 Left Ventricle: Left ventricle appears normal in size. Wall thickness is normal. Systolic function is normal with an ejection fraction of 55-60%. See wall score diagram for wall motion abnormalities.Pericardium: There is pleural effusion. The study had technical difficulties. The study was difficult due to patient's body habitus and poor acoustic windows. Echo complete W/ contrast Result Date: 07/27/2023 Left Ventricle: Left ventricle appears normal in size. Systolic function is normal with an ejectionfraction of 55-60%. Right Ventricle: Systolic function is mildly reduced. Abnormal tricuspid annular plane systolic excursion. Aortic Valve: There is moderate to severe regurgitation. There is moderate to severe stenosis. The calculated aortic valve area is 0.59 cm2. The calculated aortic valve peak gradient is 68.00 mmHg. The calculated aortic valve mean gradient is 36.00 mmHg. Tricuspid Valve: There is mild to moderate regurgitation. There is no evidence of tricuspid valve stenosis. ASSESSMENT / PLAN: PE - high prob VQ scan - s Heparin gtt Cardiac echo - EF 63%, no RV failure Chronic hypoxic resp failure- baseline O2 2L Hx SARAH T12 Fx Ok to proceed with kyphoplasty; awaiting procedure Okay to start eliquis after kyphoplasty This is a late note on patient seen earlier today. . * Randall Martin MD - 10/24/2023 11:17 AM EDT Images from the original note were not included. Pulmonary Progress Note Patient - Brian Mandel Age - 73 y.[facility]. - 1950 [id number] Date of Admission - 10/20/2023 8:14 AM Consulting Service/Physician Consulting: Consulting Providers Provider Service Specialty Timmy Acosta DO -- Orthopedic Surgery Randall Martin MD Z Pulmonology Pulmonary Medicine Matt Montemayor MD Cardiology Cardiology Primary Care Physician: Melanie Taylor DO REASON FOR VISIT: PE, COPD, chronic hypoxic respiratory failure REVIEW OF SYMPTOMS: Cough - no chest pain- no Shortness of breath - baseline fever - no Hemoptysis- no Sinus drainage, sore throat - no Abdominal pain - no Nausea, vomiting - no Diarrhea, constipation - no Swelling feet- no Rashes- no Headache - no Events since last visit : None Past Medical History: Past Medical History: Diagnosis Date Acute coronary syndrome [place] Anxiety disorder Chronic back pain Chronic obstructive asthma with exacerbation [place]) COPD (chronic obstructive pulmonary disease) [place]) Diabetes mellitus type 2, controlled ([facility] Essential hypertension Folate deficiency anemia Heart failure [place]) Megaloblastic anemia VT (myocardial infarction) [place] 06/2023 Muscle weakness (generalized) Myocardial infarct [place] Obesity Obstructive sleep apnea SARAH (obstructive sleep apnea) Pancytopenia ([facility] Presence of coronary artery bypass graft stent Shock ([facility]) 10/05/2023 Supplemental oxygen dependent , Past Surgical History: Procedure Laterality Date CARDIAC SURGERY X2 Social History: Social History Socioeconomic History Marital status: Spouse name: Not on file Number of children: Not on file Years of education: Not on file Highest education level: Not on file Occupational History Not on file Tobacco Use Smoking status: Never Smokeless tobacco: Never Vaping Use Vaping status: Never Used Substance and Sexual Activity Alcohol use: Not Currently Comment: last drink 2003 Drug use: Never Sexual activity: Defer Other Topics Concern Not on file Social History Narrative Not on file Social Determinants of Health Financial Resource Strain: Low Risk (07/23/2023) Overall Financial Resource Strain (CARDIA) Difficulty of Paying Living Expenses: Not hard at all Food Insecurity: No Food Insecurity (10/20/2023) Hunger Screening Food Insecurity - Worry: Never True Food Insecurity - Inability: Never True Transportation Needs: No Transportation Needs (10/20/2023) PRAPARE - Transportation Lack of Transportation (Medical): No Lack of Transportation (Non-Medical): No Physical Activity: Insufficiently Active (07/23/2023) Exercise Vital Sign Days of Exercise per Week: 2 days Minutes of Exercise per Session: 10 min Stress: Stress Concern Present (07/23/2023) [employer] [place] [employer] - Occupational Stress Questionnaire Feeling of Stress : Very much Social Connections: Socially Isolated (07/23/2023) Social Connection and Isolation Panel [NHANES] Frequency of Communication with Friends and Family: Three times a week Frequency of Social Gatherings with Friends and Family: Three times a week Attends Confucianist Services: Never Active Member of Clubs or Organizations: No Attends Club or Organization Meetings: Never Marital Status: Interpersonal Safety: Not At Risk (10/20/2023) Humiliation, Afraid, Rape, and Kick questionnaire Fear of Current or Ex-Partner: No Emotionally Abused: No Physically Abused: No Sexually Abused: No Housing Instability: Low Risk (10/20/2023) Housing Instability Housing Instability: No SUBJECTIVE VITALS height is 152.4 cm (5') and weight is 97.5 kg (214 lb 15.2 oz). His oral temperature is 36.5 C (97.7 F). His blood pressure is 126/59 and his pulse is 63. His respiration is 16 and oxygen saturation is 100%. Temperature Range: Temp (24hrs), Av.7 C (98.1 F), Min:36.5 C (97.7 F), Max:37.1 C (98.8 F) BP Range: Systolic (24hrs), Av , Min:96 , Max:126 Pulse Range: Pulse Av.3 Min: 55 Max: 77 Respiration Range: Resp Av.8 Min: 14 Max: 26 Current Pulse Ox: Temp: 36.5 C (97.7 F) 24HR Pulse Ox Range: Temp Av.6 C (97.9 F) Min: 36.3 C (97.4 F) Max: 37.1 C (98.8 F) Oxygen Amount and Delivery: O2 Device: Nasal cannula O2 Flow Rate (L/min): 2 L/min Wt Readings from Last 3 Encounters: 10/24/23 97.5 kg (214 lb 15.2 oz) 10/12/23 105.6 kg (232 lb 12.9 oz) 10/04/23 106.1 kg (234 lb) I/O (24 Hours) Intake/Output Summary (Last 24 hours) at 10/24/2023 1117 Last data filed at 10/24/2023 0600 Gross per 24 hour Intake 360 ml Output 1000 ml Net -640 ml Exam General Appearance - Awake, alert, in no acute distress, 2 l nc HEENT - normocephalic, atraumatic. Neck - Supple, trachea midline Lungs - Fair air entry bilaterally, breath sounds vesicular, no rhonchi, no rales or crackles Cardiovascular - Heart sounds are normal. Regular rate and rhythm. Abdomen - soft, nontender, nondistended, no masses or organomegaly Neurologic - There are no focal motor or sensory deficits Skin - no bruising or bleeding Extremities - no cyanosis, clubbing or edema Meds Current Facility-Administered Medications: acetaminophen (TYLENOL) tablet 650 mg, 650 mg, oral, Q4H PRN, APRIL Lee, 650 mg at 10/22/23 2259 atorvastatin (LIPITOR) tablet 20 mg, 20 mg, oral, Nightly, JOSE D Preston CNP, 20 mg at 156 dextrose (GLUTOSE) 40 % gel 15 g, 15 g, oral, PRN, APRIL Lee dextrose 50 % in water (D50W) 50% solution 25 mL, 25 mL, intravenous, PRN, APRIL Lee famotidine (PF) (PEPCID) injection 20 mg, 20 mg, intravenous, Q24H, APRIL Torrez, 20 mg at 10/23/23 2157 glucagon HCL injection 1 mg, 1 mg, intramuscular, PRN, APRIL Lee heparin (porcine) injection 5,000 Units, 5,000 Units, intravenous, PRN, Randall Martin MD heparin infusion 01455 units/500 mL in 0.45% NaCl (50 units/mL premix), 300- 3,500 Units/hr, intravenous, Continuous, Randall Martin MD, Last Rate: 18 mL/hr at 10/23/23 1729, 900 Units/hr at 10/23/23 1729 HYDROcodone-acetaminophen (NORCO) 5-325 mg per tablet 1 tablet, 1 tablet, oral, Q6H PRN, APRIL Torrez, 1 tablet at 10/24/23 0741 insulin lispro (HumaLOG) injection 2-10 Units, 2-10 Units, subcutaneous, TID with meals, APRIL Lee, 2 Units at 10/20/23 1844 insulin lispro (HumaLOG) injection 2-8 Units, 2-8 Units, subcutaneous, Nightly, APRIL Lee magnesium sulfate IVPB 2000 mg/50 mL in iso-osmotic water (40 mg/mL premix), 2,000 mg, intravenous,PRN, APRIL Lee, Stopped at 10/23/23 1935 magnesium sulfate IVPB 4000 mg/100 mL in iso-osmotic water (40 mg/mL premix), 4,000 mg, intravenous, PRN, APRIL Lee, Stopped at 10/20/23 1319 metoprolol succinate XL (TOPROL XL) 24 hr tablet 25 mg, 25 mg, oral, Daily, APRIL Preston, 25 mg at 10/24/23 0829 ondansetron (PF) (ZOFRAN) injection 4 mg, 4 mg, intravenous, Q8H PRN, APRIL Lee potassium chloride (K-TAB,KLOR-CON) CR tablet 30-40 mEq, 30-40 mEq, oral, PRN, 30 mEq at 10/22/23 1102 OR potassium chloride (KAYCIEL) 20 mEq/15 mL solution 30-40 mEq, 30-40 mEq, oral, PRN, APRIL Bravo sodium chloride 0.9 % flush 3 mL, 3 mL, intravenous, PRN, APRIL Lee sodium chloride 0.9 % flush 3 mL, 3 mL, intravenous, Q12H LYNN, APRIL Lee, 3 mL at 10/24/23 0900 sodium chloride 0.9 % flush bag, 25 mL, intravenous, PRN, APRIL Lee sodium chloride 0.9 % infusion, 20 mL/hr, intravenous, Continuous PRN, APRIL Lee ticagrelor (BRILINTA) tablet 90 mg, 90 mg, oral, Q12H LYNN, Cindy Cisneros, PER DIEM PHYSICAL THERAPIST ASSISTANT-RN REFERRAL, 90 mg at 10/24/23 0830 ALLERGIES: No Known Allergies Results from last 3 days Lab Units 10/24/23 0621 10/23/23 2321 10/23/23 1018 10/23/23 0246 10/22/23 1509 10/22/23 0531 BUN mg/dL 9 -- -- 9 -- 12 CREATININE mg/dL 1.05 -- -- 1.18 -- 1.13 POTASSIUM mmol/L 4.2 -- -- 4.2 4.1 3.8 CO2 mmol/L 25 -- -- 27 -- 26 CHLORIDE mmol/L 104 -- -- 106 -- 103 MAGNESIUM mg/dL 2.2 2.4 1.7* 1.7* -- 2.3 AST U/L 41 -- -- 27 -- 29 ALT U/L 27 -- -- 22 -- 23 ALK PHOS U/L 174* -- -- 120 -- 110 No data from last 3 days. Results from last 3 days Lab Units 10/24/23 0610/23/23 0246 10/22/23 0531 WBC X10E9/L 10.0 7.7 7.5 HEMOGLOBIN g/dL 8.7* 8.1* 8.0* HEMATOCRIT % 26.2* 24.1* 24.3* PLATELETS X10E9/L 188 159 158 MCV fL 99 98 98 MCH pg 32.8 33.1 32.5 MCHC g/dL 33.2 33.8 33.1 RDW % 18.0* 18.4* 17.8* EOS ABS AUTO X10E9/L 0.6* 0.5* 0.5* Microbiology Results No results found for the last 168 hours. Glucose Results from last 7 days Lab Units 10/24/23 0746 10/24/23 0621 10/23/23200510/23/23 1702 10/23/23 1152 10/23/23 0807 10/23/2324510/22/23203010/22/23 1626 10/22/23 0840 10/22/23 0531 10/21/23 2034 BEDSIDE GLUCOSE mg/dL 110* -- 135* 127* 91 88 -- 112* 105* 96 -- 115* GLUCOSE mg/dL -- 125* -- -- -- -- 93 -- -- -- 96 -- I/O last 3 completed shifts: In: 600 [P.O.:600] Out: 1100 [Urine:1100] Microbiology Results No results found for the last 168 hours. Lines/Drains Peripheral IV 10/20/23 Left Antecubital (Active) Line Status Infusing 10/21/23848 Site Assessment Clean;Dry;Intact 10/21/23848 Dressing Type Occlusive;Transparent 10/21/23848 Dressing Status Dry;Intact;Clean 10/21/23848 Dressing Intervention Initial dressing 10/20/23 014 Specimen Obtained Yes 10/20/23143 Specimen Status Sent for analysis 10/20/23143 Amount Drawn (mL) 10 mL 10/20/23143 Dressing Change Due (Non-Gauze) 10/27/23 10/20/23143 No results found. Echo limited W/ contrast Result Date: 09/08/2023 Left Ventricle: Left ventricle appears normal in size. Wall thickness is normal. Systolic function is normal with an ejection fraction of 55-60%. See wall score diagram for wall motion abnormalities.Pericardium: There is pleural effusion. The study had technical difficulties. The study was difficult due to patient's body habitus and poor acoustic windows. Echo complete W/ contrast Result Date: 07/27/2023 Left Ventricle: Left ventricle appears normal in size. Systolic function is normal with an ejectionfraction of 55-60%. Right Ventricle: Systolic function is mildly reduced. Abnormal tricuspid annular plane systolic excursion. Aortic Valve: There is moderate to severe regurgitation. There is moderate to severe stenosis. The calculated aortic valve area is 0.59 cm2. The calculated aortic valve peak gradient is 68.00 mmHg. The calculated aortic valve mean gradient is 36.00 mmHg. Tricuspid Valve: There is mild to moderate regurgitation. There is no evidence of tricuspid valve stenosis. ASSESSMENT / PLAN: PE - high prob VQ scan - s Heparin gtt Cardiac echo - EF 63%, no RV failure Chronic hypoxic resp failure- baseline O2 2L Hx SARAH T12 Fx Ok to proceed with kyphoplasty; awaiting procedure Okay to start eliquis after kyphoplasty * Julia Man MD - 10/24/2023 9:00 AM EDT Images from the original note were not included. [facility] INTERNAL MEDIC[facility] [id number] [facility] [id number] Hospital Medicine Progress Note Patient: Brian Mandel Date of : 1950 Room: [address] [place] [address] PCP: Melanie Taylor DO Admission date: 10/20/2023 8:14 AM Encounter date: 10/24/23 Hospital Day: 5 SUBJECTIVE Chief complaints: No chief complaint on file. Interval History: Status: stable. Patient seen and examined at bedside, no acute distress, overnight events, or nursing concerns. Awaiting anesthesia clearance for kyphoplasty. Review of Systems Review of Systems Constitutional: Negative for chills and fever. HENT: Negative for ear pain and sore throat. Eyes: Negative for pain and visual disturbance. Respiratory: Negative for cough and shortness of breath. Cardiovascular: Negative for chest pain and palpitations. Gastrointestinal: Negative for abdominal pain and vomiting. Genitourinary: Negative for dysuria and hematuria. Musculoskeletal: Positive for back pain. Negative for arthralgias. Skin: Negative for color change and rash. Neurological: Negative for seizures and syncope. All other systems reviewed and are negative. OBJECTIVE BP 118/49 Pulse 63 Temp 36.5 C (97.7 F) (Oral) Resp 16 Ht 152.4 cm (5') Wt 97.5 kg (214 lb 15.2 oz) SpO2 93% BMI 41.98 kg/m Intake/Output Summary (Last 24 hours) at 10/24/2023 190 Last data filed at 10/24/2023 1715 Gross per 24 hour Intake 360 ml Output 1450 ml Net -1090 ml Physical Exam Physical Exam Constitutional: General: He is not in acute distress. Appearance: He is well-developed. He is obese. Interventions: Nasal cannula in place. HENT: Head: Normocephalic. Right Ear: External ear normal. Left Ear: External ear normal. Nose: Nose normal. Eyes: Conjunctiva/sclera: Conjunctivae normal. Pupils: Pupils are equal, round, and reactive to light. Cardiovascular: Rate and Rhythm: Normal rate and regular rhythm. Heart sounds: Normal heart sounds. No murmur heard. Pulmonary: Effort: Pulmonary effort is normal. Breath sounds: Normal breath sounds. No wheezing. Abdominal: General: Bowel sounds are normal. Palpations: Abdomen is soft. There is no mass. Tenderness: There is no abdominal tenderness. Musculoskeletal: General: Normal range of motion. Cervical back: Normal range of motion. Thoracic back: Tenderness present. Lymphadenopathy: Cervical: No cervical adenopathy. Skin: General: Skin is warm and dry. Findings: No rash. Neurological: Mental Status: He is alert. Cranial Nerves: No cranial nerve deficit. Coordination: Coordination normal. Psychiatric: Behavior: Behavior normal. Medications Scheduled: atorvastatin, 20 mg, oral, Nightly famotidine, 20 mg, intravenous, Q24H insulin lispro, 2-10 Units, subcutaneous, TID with meals insulin lispro, 2-8 Units, subcutaneous, Nightly metoprolol succinate XL, 25 mg, oral, Daily sodium chloride, 3 mL, intravenous, Q12H LYNN ticagrelor, 90 mg, oral, Q12H LYNN Infusions: heparin, 300-3,500 Units/hr, Last Rate: 900 Units/hr (10/23/23 1729) sodium chloride 0.9 %, 20 mL/hr As Needed: acetaminophen dextrose dextrose 50 % in water (D50W) glucagon (human recombinant) heparin (porcine) HYDROcodone-acetaminophen magnesium sulfate magnesium sulfate ondansetron potassium chloride OR potassium chloride sodium chloride sodium chloride sodium chloride 0.9 % Allergies: Patient has no known allergies. Labs Recent Results (from the past 24 hour(s)) Bedside Glucose *Place/Obtain serum glucose if >500(>600 MRH) per glucometer. Collection Time: 10/23/23 8:06 PM Result Value Ref Range Bedside glucose 135 (H) 65 - 99 mg/dL Magnesium Collection Time: 10/23/23 11:21 PM Result Value Ref Range Magnesium 2.4 1.8 - 2.6 mg/dL Comprehensive metabolic panel Collection Time: 10/24/23 6:21 AM Result Value Ref Range Sodium 139 134 - 146 mmol/L Potassium, Bld 4.2 3.5 - 5.0 mmol/L Chloride 104 98 - 109 mmol/L CO2 25 22 - 32 mmol/L Anion gap 10 5 - 15 mmol/L BUN 9 5 - 27 mg/dL Creatinine 1.05 0.70 - 1.20 mg/dL Glucose 125 (H) 65 - 99 mg/dL Calcium 8.9 8.5 - 10.5 mg/dL Total Protein 7.3 6.0 - 8.0 g/dL Albumin 3.1 (L) 3.2 - 5.3 g/dL Alkaline Phosphatase 174 (H) 39 - 130 U/L AST 41 0 - 41 U/L ALT 27 0 - 40 U/L Total bilirubin 0.7 0.3 - 1.2 mg/dL eGFR (CKD-EPI)non-race dependent 74 >59 ml/min/1.73sq.m Magnesium Collection Time: 10/24/23 6:21 AM Result Value Ref Range Magnesium 2.2 1.8 - 2.6 mg/dL CBC auto differential Collection Time: 10/24/23 6:21 AM Result Value Ref Range White Blood Cells 10.0 4.0 - 11.0 X10E9/L RBC count 2.65 (L) 4.10 - 5.70 X10E12/L Hemoglobin 8.7 (L) 13.0 - 17.0 g/dL Hematocrit 26.2 (L) 39 - 49 % MCV 99 80 - 100 fL MCH 32.8 27 - 34 pg MCHC 33.2 32 - 36 g/dL RDW 18.0 (H) 11.5 - 15.0 % Platelets 188 150 - 450 X10E9/L MPV 9.7 7 - 12 fL % neutrophils 59.2 % % lymphocytes 26.7 % % monocytes 6.7 % % eosinophils 5.9 % % Basophils 1.5 % Neutrophils Absolute (A) 5.9 1.5 - 6.6 X10E9/L Lymphocytes Absolute 2.7 1.0 - 3.5 X10E9/L Monocytes Absolute 0.7 0 - 0.9 X10E9/L Eosinophils Absolute 0.6 (H) 0.0 - 0.4 X10E9/L Basophils Absolute 0.1 0.0 - 0.2 X10E9/L Anti XA unfractionated heparin Collection Time: 10/24/23 6:21 AM Result Value Ref Range Heparin anti-xa, unfractionated 0.48 0.30 - 0.70 IU/mL Bedside Glucose *Place/Obtain serum glucose if >500(>600 MRH) per glucometer. Collection Time: 10/24/23 7:46 AM Result Value Ref Range Bedside glucose 110 (H) 65 - 99 mg/dL Bedside Glucose *Place/Obtain serum glucose if >500(>600 MRH) per glucometer. Collection Time: 10/24/23 11:56 AM Result Value Ref Range Bedside glucose 106 (H) 65 - 99 mg/dL Bedside Glucose *Place/Obtain serum glucose if >500(>600 MRH) per glucometer. Collection Time: 10/24/23 4:14 PM Result Value Ref Range Bedside glucose 101 (H) 65 - 99 mg/dL Radiology Echo limited W/O contrast Result Date: 10/21/2023 Narrative: Left Ventricle: Systolic function is normal with an ejection fraction of 60-65%. The quantitative EF by 2D Hutchinson biplane is 63%. No obvious regional wall motion abnormalities. Pericardium: There is no pericardial effusion. CT Ion Chest without contrast Result Date: 10/20/2023 Narrative: History: Respiratory illness, nondiagnostic xray Exam/Technique: Serial axial CT images of the chest were obtained without IV dye. All CT scans at this facility use dose modulation, iterative reconstruction, and/or weight based dosing when appropriate to reduce radiation dose to as low as reasonably achievable. Automated exposure control was utilized. Computer aided detection for pulmonary nodules?was performed utilizing [employer] software.? Comparison: 10/04/2023 Findings: Neck base is grossly unremarkable.. Midline sternotomy wires are grossly intact. There is no gross soft tissueabnormality at the surgical bed there are cardiac surgical changes with no significant cardiomegalyor pericardial effusion. There are severe coronary artery calcifications. There is moderate degree of diffuse atherosclerotic disease and calcified intimal plaque throughout thoracic aorta with maximum transverse diameter of 3.9 cm of the ascending segment. There is no pathological mediastinal lymphadenopathy by size criteria. There is small left-sided pleural effusion with left lower lobe alveolar opacity possibly atelectasis versus consolidation. Findings are less prominent compared to prior exam. There are central groundglass opacities throughout both lungs raising concern for pulmonary edema or interstitial pneumonia. There is 6 mm right lower lobe pulmonary nodule. This is best identified at axial image #111 series 2. A non-calcified 6 mm solid nodule in the right lower lobe is indeterminate. There is moderate fatty infiltration of the pancreas. There is heterogeneous and irregularhepatic contour. Underlying liver cirrhosis cannot be excluded. Spleen and adrenal glands are unremarkable. There are few calcified nonobstructing bilateral renal stones with average diameter of 2 to3 mm. IMPRESSION: There is interval decrease in the degree of left-sided pleural effusion and left alveolar opacity possibly atelectasis versus consolidation. There is interval development of centralbilateral groundglass opacity raising concern for pulmonary edema or interstitial pneumonia. Indeterminate solid pulmonary nodule measuring 6 mm. In a patient of unknown risk level with a solid nodule of 6-8 mm, recommend CT at 6-12 months. In a low-risk patient, then consider CT at 18-24 months. In a high-risk patient, if the nodule is stable at 6-12 months, recommend CT at 18-24 months. Seymour Garcia et al. Guidelines for Management of Incidental Pulmonary Nodules Detected on CT Images: From the Fleischner Society 2017. Radiology. 2017 [place]mesh;284(1):228-243. Finalized by Elizabeth Pfeiffer MD on 10/20/2023 7:12 PM Vas venous duplex lwr bilateral Result Date: 10/20/2023 Narrative: Right: Common femoral, femoral, popliteal and deep calf muscle veins are compressible without intraluminal content. Spontaneous, phasic common femoral, femoral and popliteal spectral Doppler signals. Compressible thigh superficial Great saphenous vein. Left: Common femoral, femoral, popliteal and deep calf muscle veins are compressible without intraluminal content. Spontaneous, phasic common femoral, femoral and popliteal spectral Doppler signals. Absent Great saphenous superficial vein in the thigh. General: In- patient, bedside examination. Conclusions: RIGHT: NO EVIDENCE of deep or superficial vein thrombosis of the lower extremity.LEFT: The great saphenous vein is not visualized or surgically absent in the thigh. NO EVIDENCE of deep or superficial vein thrombosis of the lower extremity. Recommendations: Any questions prior to finalization, please call the reading physicianduring normal business hours at the phone number beside their name. NM pulmonary perfusion scan Result Date: 10/20/2023 Narrative: PERFUSION LUNG SCAN COMPARISON: None. CORRELATION: Chest radiograph 10/20/2023 HISTORY: Chest pain, shortness breath. TECHNIQUE: 5.6 mCi technetium 99m MAA injected intravenously without reported complication. Planar images of the lungs obtained in multiple projections for both ventilation and perfusion. FINDINGS: Normal heterogeneous uptake seen within the right lung. Large perfusion defect involving a majority of the left mid/lower lung. Of note, patient has evidence of moderate left pleural effusion on prior chest x-ray which may be causing significant compressive atelectasis IMPRESSION: * Large perfusion defect involving majority of the left mid/lower lung with underlying pleural effusion on the chest radiograph.. * Intermediate probability for pulmonary embolism. * A central or hilar obstructing lesion to the left lower lobe cannot be excluded in the setting. * Ventilation imaging was not performed. Approved by Resident Pavan Durbin DO on 10/20/2023 2:00 PM Sheri Marcial MD have personally reviewed the image(s) and agree with and/or edited the report Finalized by Kye Kapadia MD on 10/20/2023 2:20 PM X-ray chest 1 view Result Date: 10/20/2023 Narrative: XR CHEST 1 VW HISTORY: Shortness of breath COMPARISON: 10/11/2023 FINDINGS: Interval removal of left neck catheter. Prior median sternotomy. Left shoulder tenodesis. Small left pleural effusion and left lower lobe airspace opacification does not appear significantly changed across multiple prior examinations. Cardiac mediastinal silhouette appears stable and within normal limits given portable technique. IMPRESSION: * No significant interval change other than left IJ central venous catheter having been removed.. Approved by Resident: Agustin Flores MD on 10/20/2023 2:12 AM Shiv Marcial MD have personally reviewed the image(s) and agree with and/or edited the repor t Finalized by Shiv Pinzon MD on 10/20/2023 2:17 AM X-ray spine lumbar 2 or 3 views Result Date: 10/20/2023 Narrative: Clinical history: Status post fall, back pain. Comparisons: None Findings: AP and lateral lumbar spine radiographs obtained. 5 lumbar-like vertebral bodies are present in normal alignment.There is an anterior wedge compression fracture at T12 which was not present on a CT chest 10/04/2023. The other vertebral body heights are preserved. Some changes of degenerative disc disease are present at L5-S1. No malalignment. Left lower pole renal calculi are present. Bifurcated abdominal aortic endograft and vascular calculations are present. IMPRESSION: 1. Anterior wedge compression fracture T12, new when compared with CT scan 10/04/2023. 2. Degenerative disc disease L5-S1. Finalized by Shiv Pinzon MD on 10/20/2023 2:15 AM X-ray chest 1 view Result Date: 10/11/2023 Narrative: History: Pleural effusion EXAM: Chest AP portable upright COMPARISON: 10/09/2023 FINDINGS: Stable left IJ central line. Unchanged cardiac silhouette, left pleural effusion, adjacent atelectasis. No pneumothorax right lung is clear. IMPRESSION: No significant change. Finalized by Dagoberto Wiley MD on 10/11/2023 9:39 AM Ultrasound abdomen limited with duplex Result Date: 10/10/2023 Narrative: Abdominal ultrasound with Doppler, 10/10/2023. History: Dyspnea, fluid overload. Comparison: CT abdomen and pelvis 10/04/2023. Technique: Grayscale sonographic imaging of the right upper quadrant was performed. Color and spectral Doppler ultrasound was used to assess blood flow characteristics. Findings: The liver parenchyma is diffusely echogenic with decreased through- transmission. Liver measures 11.0 cm craniocaudal at mid clavicular line. No discrete mass. No definite intra- or extrahepatic biliary dilatation is seen. No significant abdominal ascites. Gallbladder demonstrates no wall thickening or pericholecystic fluid. The common bile duct measures 5 mm which is within the range of normal. No free fluid is demonstrated. Color and spectral Doppler ultrasound was performed to assess the hepatic vasculature. Blood flow within the main portal vein is hepatopedal with a peak systolic velocity of 27.7 cm/sec. Spectral waveforms are normal. The hepatic veins, hepatic arteries and inferior vena cava are patent with normal spectral waveforms. Impression: * No evidence of acute vascular abnormality. * Echogenic liver parenchyma compatible with hepatocellular disease, most commonly steatosis. Finalized by Braulio De Anda MD on 10/10/2023 8:53 PM X-ray chest 1 view Result Date: 10/09/2023 Narrative: CHEST 1 VIEW HISTORY: Postthoracentesis COMPARISON: 10/08/2023 FINDINGS: Stable left-sided central venous catheter and sternotomy wires. Unchanged small left pleural effusion with adjacent atelectasis. No pneumothorax. Right lung is clear. IMPRESSION: No significant interval change. Finalized by Edilberto Willoughby MD on 10/09/2023 8:42 AM X-ray chest 1 view Result Date: 10/08/2023 Narrative: Single view chest History:post thoracentesis Difficulty breathing, shortness of breath Comparison: 10/06/2023 Findings: Single portable view of the chest. Left jugular catheter is stable. Decreased left pleural effusion with left lower lung atelectasis versus pneumonia. Stable cardiomediastinal silhouette. Mild vascular congestion. Impression: Decreased left pleural effusion with persistent left lower lung atelectasis versus pneumonia. Finalized by Kye Kapadia MD on 10/08/2023 7:08 AM IR thoracentesis with guidance left Result Date: 10/07/2023 Narrative: Ultrasound-guided left thoracentesis. Indication: pleural effusion, shortness of breath.Consent: The risks and benefits of the procedure were explained to the patient signed written consent. TIME OUT: [place] Protocol Time Out Verification performed. Procedure details: In the sitting position, the left chest was evaluated with ultrasound and this revealed small pleural effusion. Theposterior left chest was prepped and draped in a sterile fashion and the skin was infiltrated with 1% lidocaine. A small skin francois with an 11 blade was made. Using real-time ultrasound guidance, an 18-gauge Yueh needle was advanced in the left posterior pleural cavity during direct ultrasound needle visualization, and an ultrasound customer account representative image was obtained and saved in PACS; the catheterwas connected to a vacuum bottle, and approximately 0.5 liters of yellow fluid was removed and sentfor analysis. The needle was removed and dressing placed. No immediate complications. Estimated blood loss: 0 mL of blood. Batch Operator: None. Complications: None. Impression: Ultrasound-guided left thoracentesis revealing 0.5 liters of fluid. Finalized by Cami Andre MD on 10/07/2023 6:31 PM X-ray chest 1 view Result Date: 10/06/2023 Narrative: Clinical history: Acute respiratory failure Views: 1 Comparison: 10/05/2023 Findings/Impression: 1. Left pleural effusion with atelectasis. Right lung clear. Heart size prominent. Vasculature stable. Central line overlies SVC. 2. In summary, continued abnormal chest without interval change. Finalized by Ricardo Serra MD on 10/06/2023 7:39 AM IR CICV non tunneled more than 5 years Result Date: 10/05/2023 Narrative: CLINICAL INDICATION: ESRD, need for dialysis COMPARISON: None TECHNIQUE: Procedure performed by Interventional Radiologist Neo Anne MD Reference Air Kerma = 17.8 mGy Fluoroscopy time:1.1 minutes Saved images: 3 CONSENT: The reason of the procedure was discussed with the patient. The procedure, expectations, risks, benefits, options and alternatives were discussed. All of the patient?s questions were answered. The patient understands that the results cannot be guaranteed. The procedure is indicated and the risks are acceptable. Consent was obtained. PROCEDURE: 1. Ultrasound-guided left internal jugular vein access. Placement of a temporary trialysis catheter. Details of procedure: Patient placed in the supine position. The left neck was prepped and draped in the usual sterile fashion. Under continuous ultrasound guidance, a patent and compressible left internal jugular vein was accessed with a micropuncture needle. Permanent ultrasound images were stored in PACS. A micr owire was placed into the right atrium. A skin francois was made. The needle was removed. A micropuncture sheath was placed. The inner dilator and wire were removed. An Amplatz wire was advanced into theIVC. The micropuncture sheath was then removed. The track was dilated. A temporary trialysis catheter was placed.. The wire was removed. 2-0 Prolene suture was used to secure the line to the skin. All the lumens aspirated and flushed appropriately. Sterile caps applied. A sterile dressing was applied. Patient tolerated the procedure well and there were no immediate complications. FINDINGS: Patentand compressible left internal jugular vein. Satisfactory placement of temporary trialysis catheterIMPRESSION: Successful ultrasound and fluoroscopic guided placement of left internal jugular trialysis catheter Okay to use Finalized by Neo Anne on 10/05/2023 7:02 PM X-ray chest 1 view Result Date: 10/05/2023 Narrative: History: Known pleural effusion, reassess severity Exam/Technique: AP view of the chest.XR CHEST 1 VW Comparison: Recent studies Findings: The heart mediastinum are grossly stable howeverleft hemithorax and heart border obscured by overlapping disease. Mild congestion improved from 09/08/2023. No focal right lung disease. Persistent consolidation and suspected effusion left mid and lower lung. IMPRESSION: * Mild congestion improved from previous with persistent large consolidation and effusion obscuring the left mid and lower hemithorax. Finalized by Soham Chatman DO on 10/05/2023 12:[address] abdomen and pelvis without contrast Result Date: 10/05/2023 Narrative: Noncontrast CT abdomen and pelvis, 10/04/2023. History: Acute abdominal pain Comparison: CT abdomen and pelvis 09/21/2023. Technique: Multiple contiguous 5 mm axial images were acquired fromthe lung bases through the ischial tuberosities. Coronal and sagittal reconstructions were performed. Automated exposure control was utilized. Findings: For evaluation of the intrathoracic structures, please refer to report from concurrent chest CT. Evaluation of abdominal structures compromised byabsence of IV contrast. Redemonstration of lobulated contour of the liver without discrete mass or i ntrahepatic biliary ductal dilatation. Normal gallbladder. Pancreas, spleen and adrenal glands are unremarkable. Nonobstructing bilateral renal calculi with the largest stone located in the left renal pelvis measuring up to 1.7 cm. No hydronephrosis or perinephric fluid collection. Urinary bladder is incompletely distended. Prostate is normal in size with coarse calcification noted. Bowel demonstrates no obstruction or acute inflammatory change. Normal appendix. No free air or fluid. No mesenteric lymph node enlargement. 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 No retroperitoneal or pelvic lymphadenopathy. Fat-containing bilateral inguinal hernias. Significant degenerative disc disease at L5-S1. No acute osseous abnormality. IMPRESSION: * No acute pathologic process. * Nonobstructing bilateral renal calculi. All CT scans at this facility use dose modulation, iterative reconstruction, and/or weight based dosing when appropriate to reduce radiation dose to as low as reasonably achievable. Finalized by Braulio De Anda MD on 10/05/2023 12:[address] chest without contrast Result Date: 10/05/2023 Narrative: Noncontrast chest CT on 10/04/2023 HISTORY: Shortness of breath, pain COMPARISON: CT abdomen and pelvis 09/21/2023 TECHNIQUE: Multiple contiguous 2.5 mm axial images of the chest were obtained. Coronal and sagittal 2-D reconstructions were performed. Automated exposure control was utilized. FINDINGS: Normal caliber thoracic aorta with moderate atherosclerotic calcification. Pulmonary artery is normal in caliber. Heart size is enlarged with severe coronary artery calcifications noted. Valvular calcifications are present. Postoperative changes compatible with CABG. No pericardial effusion. No pathologically enlarged mediastinal lymph nodes. Moderate-sized left pleural effusion with significant associated consolidative change in the left upper and lower lobes. There is a solid 5 mm pulmonary nodule in the right lower lobe along the major fissure. No pneumothorax. Central airways are patent. No chest wall lymphadenopathy. For evaluation of abdominal structures, please refer to report from concurrent CTA abdomen and pelvis. No acute osseous abnormality. IMPRESSION: * Moderate-sized left pleural effusion with associated atelectasis and/or pneumonia. * Indeterminate solid pulmonary nodule measuring less than 6 mm. In a low-risk patient with a solid nodule <6 mm, recommend no follow-up. In a high-risk patient, CT at 12 months is optional with stronger consideration if there is suspicious nodule morphology and/or upper lobe location. All CT scans at this facility use dosemodulation, iterative reconstruction, and/or weight based dosing when appropriate to reduce radiation dose to as low as reasonably achievable. Seymour Garcia, et al. Guidelines for Management of Incidental Pulmonary Nodules Detected on CT Images: From the Fleischner Society 2017. Radiology. 2017 Umesh;284(1):228-243. Finalized by Braulio De Anda MD on 10/05/2023 12:07 AM HOSPITAL PROBLEM LIST Principal Problem: T12 compression fracture (CMS-HCC) Active Problems: Benign essential hypertension Chronic diastolic congestive heart failure (CMS-HCC) COPD (chronic obstructive pulmonary disease) (CMS-HCC) Dyslipidemia Type 2 diabetes mellitus with hyperglycemia, without long-term current use of insulin (CMS-HCC) ASSESSMENT & PLAN T12 compression fracture Ortho spine following Cardiology cleared patient at high-risk, no absolute cardiac contraindications for this planned surgery Pulmonology clearing for kyphoplasty Awaiting anesthesia clearance for kyphoplasty Chronic diastolic CHF CAD s/p CABG Essential hypertension Mixed hyperlipidemia Moderate to severe Cardiology following Continue with Lipitor, Toprol, Brilinta Large perfusion defect left mid/lower lung on V/Q scan COPD with chronic hypoxic respiratory failure baseline O2 needs of 2 L NC SARAH Pulmonology following Currently on baseline O2 needs Per pulmonology it is okay to start Eliquis following kyphoplasty Currently remains on heparin infusion DVT Prophylaxis: EPC's and Heparin Infusion per protocol DC Planning: Pending clinical course APRIL BUCHANAN, 10/24/2023 7:09 PM [facility] Internal Medicine 7AM-7PM (all facilities): EpicChat or page through [employer]. 7PM-7AM ([facility], [facility]): EpicChat or page, [phone]. 7PM-7AM ([place], [place], [place], [place] and [facility] Rehab): EpicChat or page through [employer]. This note was completed using a voice taffy puller system. Every effort is made to ensure accuracy, however inadvertent errors may occur. APRIL Buchanan 10/24/231914 Physician Attestation I, Julia Man MD, personally performed a face to face diagnostic evaluation on this patient. I have reviewed the note authored by the advance practice provider including history, review of systems,physical examination,medical decision making and agree with the assessment and plan as written. I have seen and evaluated the patient, I have repeated the benoit portions of the physical exam and concur with the RASHAUN findings. I have reviewed all laboratory findings and imaging reports/films. I agree with the plan as noted. * Gagan Valdez MD - 10/24/2023 7:23 AM EDT Images from the original note were not included. [facility] [address] [place], [place] [id number] PROGRESS NOTE 10/24/2023 7:23 AM Subjective: Mr. Mandel denies any chest pain Current Meds: Current Facility-Administered Medications: acetaminophen (TYLENOL) tablet 650 mg, 650 mg, oral, Q4H PRN, APRIL Lee, 650 mg at 10/22/23 2259 atorvastatin (LIPITOR) tablet 20 mg, 20 mg, oral, Nightly, JOSE D Preston CNP, 20 mg at 156 dextrose (GLUTOSE) 40 % gel 15 g, 15 g, oral, PRN, APRIL Lee dextrose 50 % in water (D50W) 50% solution 25 mL, 25 mL, intravenous, PRN, APRIL Lee famotidine (PF) (PEPCID) injection 20 mg, 20 mg, intravenous, Q24H, APRIL Torrez, 20 mg at 10/23/23 2157 glucagon HCL injection 1 mg, 1 mg, intramuscular, PRN, APRIL Lee heparin (porcine) injection 5,000 Units, 5,000 Units, intravenous, PRN, Randall Martin MD heparin infusion 20415 units/500 mL in 0.45% NaCl (50 units/mL premix), 300- 3,500 Units/hr, intravenous, Continuous, Randall Martin MD, Last Rate: 18 mL/hr at 10/23/23 1729, 900 Units/hr at 10/23/23 1729 HYDROcodone-acetaminophen (NORCO) 5-325 mg per tablet 1 tablet, 1 tablet, oral, Q6H PRN, APRIL Torrez, 1 tablet at 10/23/23 215 insulin lispro (HumaLOG) injection 2-10 Units, 2-10 Units, subcutaneous, TID with meals, APRIL Lee, 2 Units at 10/20/23 1844 insulin lispro (HumaLOG) injection 2-8 Units, 2-8 Units, subcutaneous, Nightly, APRIL Lee magnesium sulfate IVPB 2000 mg/50 mL in iso-osmotic water (40 mg/mL premix), 2,000 mg, intravenous,PRN, APRIL Lee, Stopped at 10/23/23 1935 magnesium sulfate IVPB 4000 mg/100 mL in iso-osmotic water (40 mg/mL premix), 4,000 mg, intravenous, PRN, APRIL Lee, Stopped at 10/20/23 1319 metoprolol succinate XL (TOPROL XL) 24 hr tablet 25 mg, 25 mg, oral, Daily, Asha Cobian, SPENCER-SHERIDAN, 25 mg at 10/23/23 0832 ondansetron (PF) (ZOFRAN) injection 4 mg, 4 mg, intravenous, Q8H PRN, APRIL Lee potassium chloride (K-TAB,KLOR-CON) CR tablet 30-40 mEq, 30-40 mEq, oral, PRN, 30 mEq at 10/22/23 1102 OR potassium chloride (KAYCIEL) 20 mEq/15 mL solution 30-40 mEq, 30-40 mEq, oral, PRN, APRIL Bravo sodium chloride 0.9 % flush 3 mL, 3 mL, intravenous, PRN, APRIL Lee sodium chloride 0.9 % flush 3 mL, 3 mL, intravenous, Q12H LYNN, APRIL Lee, 3 mL at 10/23/23 2100 sodium chloride 0.9 % flush bag, 25 mL, intravenous, PRN, APRIL Lee sodium chloride 0.9 % infusion, 20 mL/hr, intravenous, Continuous PRN, APRIL Lee ticagrelor (BRILINTA) tablet 90 mg, 90 mg, oral, Q12H LYNN, Cindy Cisneros, SPENCER-SHERIDAN, 90 mg at 10/23/23 2156 Continuous Infusions: heparin, 300-3,500 Units/hr, Last Rate: 900 Units/hr (10/23/23 1729) sodium chloride 0.9 %, 20 mL/hr VITAL SIGNS BP 103/50 Pulse 63 Temp 37.1 C (98.8 F) (Oral) Resp 16 Ht 152.4 cm (5') Wt 97.5 kg (214 lb 15.2 oz) SpO2 97% BMI 41.98 kg/m 2 L/min Admit Weight: 96.5 kg (212 lb 11.9 oz) Last 3 weights: Wt Readings from Last 3 Encounters: 10/24/23 97.5 kg (214 lb 15.2 oz) 10/12/23 105.6 kg (232 lb 12.9 oz) 10/04/23 106.1 kg (234 lb) BMI: Body mass index is 41.98 kg/m . INPUT/OUTPUT: Intake/Output Summary (Last 24 hours) at 10/24/2023 0723 Last data filed at 10/24/2023 0600 Gross per 24 hour Intake 360 ml Output 1000 ml Net -640 ml Current Meds: Current Facility-Administered Medications: acetaminophen (TYLENOL) tablet 650 mg, 650 mg, oral, Q4H PRN, APRIL Lee, 650 mg at 10/22/23 2259 atorvastatin (LIPITOR) tablet 20 mg, 20 mg, oral, Nightly, JOSE D Preston CNP, 20 mg at 156 dextrose (GLUTOSE) 40 % gel 15 g, 15 g, oral, PRN, APRIL Lee dextrose 50 % in water (D50W) 50% solution 25 mL, 25 mL, intravenous, PRN, APRIL Lee famotidine (PF) (PEPCID) injection 20 mg, 20 mg, intravenous, Q24H, APIRL Torrez, 20 mg at 10/23/232156 glucagon HCL injection 1 mg, 1 mg, intramuscular, PRN, APRIL Lee heparin (porcine) injection 5,000 Units, 5,000 Units, intravenous, PRN, Randall Martin MD heparin infusion 08284 units/500 mL in 0.45% NaCl (50 units/mL premix), 300- 3,500 Units/hr, intravenous, Continuous, Randall Martin MD, Last Rate: 18 mL/hr at 10/23/23 1729, 900 Units/hr at 10/23/23 1729 HYDROcodone-acetaminophen (NORCO) 5-325 mg per tablet 1 tablet, 1 tablet, oral, Q6H PRN, APRIL Torrez, 1 tablet at 10/23/23 2156 insulin lispro (HumaLOG) injection 2-10 Units, 2-10 Units, subcutaneous, TID with meals, APRIL Lee, 2 Units at 10/20/23 1844 insulin lispro (HumaLOG) injection 2-8 Units, 2-8 Units, subcutaneous, Nightly, APRIL Lee magnesium sulfate IVPB 2000 mg/50 mL in iso-osmotic water (40 mg/mL premix), 2,000 mg, intravenous,PRN, APRIL Lee, Stopped at 10/23/23 1935 magnesium sulfate IVPB 4000 mg/100 mL in iso-osmotic water (40 mg/mL premix), 4,000 mg, intravenous, PRN, APRIL Lee, Stopped at 10/20/23 1319 metoprolol succinate XL (TOPROL XL) 24 hr tablet 25 mg, 25 mg, oral, Daily, Asha Cobian APRN-SHERIDAN, 25 mg at 10/23/23 0832 ondansetron (PF) (ZOFRAN) injection 4 mg, 4 mg, intravenous, Q8H PRN, APRIL Lee potassium chloride (K-TAB,KLOR-CON) CR tablet 30-40 mEq, 30-40 mEq, oral, PRN, 30 mEq at 10/22/23 1102 OR potassium chloride (KAYCIEL) 20 mEq/15 mL solution 30-40 mEq, 30-40 mEq, oral, PRN, APRIL Bravo sodium chloride 0.9 % flush 3 mL, 3 mL, intravenous, PRN, APRIL Lee sodium chloride 0.9 % flush 3 mL, 3 mL, intravenous, Q12H LYNN, APRIL Lee, 3 mL at 10/23/23 2100 sodium chloride 0.9 % flush bag, 25 mL, intravenous, PRN, APRIL Lee sodium chloride 0.9 % infusion, 20 mL/hr, intravenous, Continuous PRN, APRIL Lee ticagrelor (BRILINTA) tablet 90 mg, 90 mg, oral, Q12H LYNN, Cindy Cisneros, SPENCER-SHERIDAN, 90 mg at 10/23/23 2156 Continuous Infusions: heparin, 300-3,500 Units/hr, Last Rate: 900 Units/hr (10/23/23 1729) sodium chloride 0.9 %, 20 mL/hr EXAM: General appearance: In no acute distress. Lungs: Clear to Auscultation bilaterally Heart: regular rate and rhythm S1 S2 Abdomen: Soft nontender Extremities: No edema Psych: Appropriate mood and affect. Awake, alert and oriented x 3. Other: CV HISTORY: ECHO: Echo limited W/O contrast Result Date: 10/21/2023 Left Ventricle: Systolic function is normal with an ejection fraction of 60-65%. The quantitative EF by 2D Hutchinson biplane is 63%. No obvious regional wall motion abnormalities. Pericardium: There isno pericardial effusion. Echo limited W/ contrast Result Date: 09/08/2023 Left Ventricle: Left ventricle appears normal in size. Wall thickness is normal. Systolic function is normal with an ejection fraction of 55-60%. See wall score diagram for wall motion abnormalities.Pericardium: There is pleural effusion. The study had technical difficulties. The study was difficult due to patient's body habitus and poor acoustic windows. Echo complete W/ contrast Result Date: 07/27/2023 Left Ventricle: Left ventricle appears normal in size. Systolic function is normal with an ejectionfraction of 55-60%. Right Ventricle: Systolic function is mildly reduced. Abnormal tricuspid annular plane systolic excursion. Aortic Valve: There is moderate to severe regurgitation. There is moderate to severe stenosis. The calculated aortic valve area is 0.59 cm2. The calculated aortic valve peak gradient is 68.00 mmHg. The calculated aortic valve mean gradient is 36.00 mmHg. Tricuspid Valve: There is mild to moderate regurgitation. There is no evidence of tricuspid valve stenosis. STRESS: No results found. HOLTER: No results found. CARDIAC CATH: No results found. CAROTID: No results found. EKG: CXR: @CXR24@ LABS CBC: Lab Results Component Value Date WBC 10.0 10/24/2023 HGB 8.7 (L) 10/24/2023 HCT 26.2 (L) 10/24/2023 MCV 99 10/24/2023 RDW 18.0 (H) 10/24/2023 PLT 188 10/24/2023 BMP: Lab Results Component Value Date K 4.2 10/24/2023 CL 104 10/24/2023 CO2 25 10/24/2023 BUN 9 10/24/2023 CREATININE 1.05 10/24/2023 EGFR 74 10/24/2023 GLU 125 (H) 10/24/2023 GLU 135 (H) 10/23/2023 MG/PHOS: Lab Results Component Value Date MG 2.2 10/24/2023 PT/INR: Lab Results Component Value Date INR 1.2 (H) 10/20/2023 PTT: No results found for: APTT BNP: Lab Results Component Value Date BNP 104 (H) 10/20/2023 Last 3 Troponin: No components found for: TROPONIN I;3 Lipid Panel: @BRIEFLAB(CHOL,TRIG,HDL,LDLCALCU,CHOLHDL Pulse Ox: )SpO2 Av.4 % Min: 97 % Max: 100 % Supplemental O2: O2 Flow Rate (L/min): 2 L/min Principal Problem: T12 compression fracture ([facility]) Active Problems: Benign essential hypertension Chronic diastolic congestive heart failure ([facility] COPD (chronic obstructive pulmonary disease) [place] Dyslipidemia Type 2 diabetes mellitus with hyperglycemia, without long-term current use of insulin ([facility]) ASSESSMENT / PLAN MPRESSIONS/PLAN @DX@ 1. Preoperative cardiac risk -was felt to be high risk by my partner and proceed on Brilinta for pain control -anesthesia and surgery 2. CAD SP CABG -FAULKNER to LAD, vein graft to RCA -cardiac catheterization in the setting of NSTEMI on 07/18 underwent KARL of the distal main left circumflex, had a widely patent FAULKENR to LAD diagonal and PDA -was on Brilinta has been maintained on this 3. Chronic HFpEF 4. Moderate to severe AI 5. Moderate to severe -peak gradient 68 mean 36 6. 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 Patient History: Admit Diagnosis: Patient Active Problem List Diagnosis Chest pain Macrocytic anemia Anxiety disorder Benign essential hypertension Chronic diastolic congestive heart failure ([facility]) Chronic respiratory failure with hypoxia ([facility]) COPD (chronic obstructive pulmonary disease) ([facility] 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 Dyslipidemia Dyspnea Gastroesophageal reflux disease without esophagitis HTN (hypertension) Major depressive disorder Mixed hyperlipidemia Obstructive sleep apnea syndrome Old myocardial infarction Type 2 diabetes mellitus with hyperglycemia, without long-term current use of insulin ([facility] Weakness generalized Pleural effusion, left Community acquired pneumonia of left lower lobe of lung Bacteremia due to methicillin resistant Staphylococcus aureus Acute on chronic congestive heart failure, unspecified heart failure type ([facility]) CRISTINE (acute kidney injury) ([facility] Acute coronary syndrome ([facility]) Aortic stenosis Congestive heart failure ([facility]) Difficulty walking Dizziness Erectile dysfunction Generalized muscle weakness History of myocardial infarction Morbid (severe) obesity due to excess calories ([facility] Mucopurulent chronic bronchitis ([facility]) Other chronic pain Postconcussion syndrome Psychophysiological insomnia Pure hypercholesterolemia Rotator cuff tear arthropathy of left shoulder Rotator cuff tear, non-traumatic, right Solitary pulmonary nodule Spondylosis of lumbosacral region without myelopathy or radiculopathy Tachycardia Urinary retention Leukocytes in urine Iron deficiency anemia secondary to inadequate dietary iron intake Recurrent left pleural effusion Anxiety and depression Weakness Hypomagnesemia Shock ([facility]) T12 compression fracture ([facility]) Past Medical History: Past Medical History: Diagnosis Date Acute coronary syndrome ([facility] Anxiety disorder Chronic back pain Chronic obstructive asthma with exacerbation ([facility]) COPD (chronic obstructive pulmonary disease) ([facility] Diabetes mellitus type 2, controlled ([facility]) Essential hypertension Folate deficiency anemia Heart failure ([facility]) Megaloblastic anemia VT (myocardial infarction) ([facility]) 06/2023 Muscle weakness (generalized) Myocardial infarct ([facility] Obesity Obstructive sleep apnea SARAH (obstructive sleep apnea) Pancytopenia ([facility] Presence of coronary artery bypass graft stent Shock ([facility]) 10/05/2023 Supplemental oxygen dependent Past Surgical History: Past Surgical History: Procedure Laterality Date CARDIAC SURGERY X2 Social/ Cognitive/ Economic: independent and self care Brief Clinical Summary: Biochemical Data, Medical Tests, and Procedures: 10/19 CT - There is interval decrease in the degree of left-sided pleural effusion and left alveolaropacity possibly atelectasis versus consolidation. There is interval development of central bilateral groundglass opacity raising concern for pulmonary edema or interstitial pneumonia. 10/19 x-ray - T12 fx Labs: Results from last 3 days Lab Units 10/23/23 0246 10/22/23 1509 10/22/23 0531 10/21/23 0649 SODIUM mmol/L 139 -- 139 139 POTASSIUM mmol/L 4.2 4.1 3.8 4.2 CHLORIDE mmol/L 106 -- 103 103 CO2 mmol/L -- 28 BUN mg/dL 9 -- 12 18 CREATININE mg/dL 1.18 -- 1.13 1.34* CALCIUM mg/dL 8.7 -- 8.7 9.1 ALBUMIN g/dL 2.8* -- 3.0* 3.2 ALK PHOS U/L 120 -- 110 101 ALT U/L 22 -- 23 AST U/L -- Results from last 7 days Lab Units 10/23/23 0807 10/23/23 0246 10/22/23 2031 10/22/23 1626 10/22/23 0840 10/22/23 0531 10/21/232033 BEDSIDE GLUCOSE mg/dL 88 -- 112* 105* 96 -- 115* GLUCOSE mg/dL -- 93 -- -- -- 96 -- Results from last 3 days Lab Units 10/23/23 0246 10/22/23 0531 10/21/23 0649 WBC X10E9/L 7.7 7.5 7.5 HEMOGLOBIN g/dL 8.1* 8.0* 8.3* HEMATOCRIT % 24.1* 24.3* 24.6* PLATELETS X10E9/L 159 158 175 MCV fL 98 98 97 Results from last 3 days Lab Units 10/23/23 1018 10/23/23 0246 10/22/23 0531 MAGNESIUM mg/dL 1.7* 1.7* 2.3 No data from last 3 days. Results from last 3 days Lab Units 10/23/23 0246 10/22/23 0531 10/21/23 0649 TOTAL BILIRUBIN mg/dL 0.6 0.7 1.0 Lab Results Component Value Date HGBA1C 5.5 09/21/2023 Lab Results Component Value Date IRON 46 (L) 10/10/2023 TIBC 279 10/10/2023 FERRITIN 167 10/10/2023 Lab Results Component Value Date IRONSAT 17 (L) 10/10/2023 Lab Results Component Value Date CHOL 136 (L) 10/05/2023 Lab Results Component Value Date CHDL 3.3 10/05/2023 Lab Results Component Value Date HDL 41 10/05/2023 Lab Results Component Value Date LDLCALC 78 10/05/2023 Lab Results Component Value Date TRIG 83 10/05/2023 Lab Results Component Value Date VERYLOWLIP 17 10/05/2023 Lab Results Component Value Date NIEFJHAP23 259 09/23/2023 Lab Results Component Value Date FOLATE 19.1 09/23/2023 No results found for: VITD25 Comments (labs): Hgb=8.1 L, Mg+=1.7 L Medications/ Parenteral: Pepcid, MagOx, Humalog Medications Prior to Admission Medication Sig Dispense Refill Last Dose acetaminophen (TYLENOL) 325 mg tablet Take 2 tablets (650 mg total) by mouth every 8 (eight) hours as needed for pain. Past Week albuterol (PROVENTIL,VENTOLIN) 2.5 mg /3 mL (0.083 %) nebulizer solution Inhale 3 mL (2.5 mg total)by nebulization every 6 (six) hours as needed for wheezing. Patient takes it every 2 hours Past Week amitriptyline (ELAVIL) 25 mg tablet Take 1 tablet (25 mg total) by mouth in the morning. Past Week dapagliflozin propanediol (FARXIGA) 10 mg tablet Take 1 tablet (10 mg total) by mouth in the morning. 30 tablet 0 10/19/2023 folic acid (FOLVITE) 1 mg tablet Take 1 tablet (1 mg total) by mouth in the morning. Past Week furosemide (LASIX) 20 mg tablet Take 1 tablet (20 mg total) by mouth 2 (two) times a day before meals. 30 tablet 0 10/19/2023 hydrOXYzine (ATARAX) 50 mg tablet Take 1-2 tablets (50-100 mg total) by mouth nightly as needed (sleep). Past Week melatonin (CIRCADIN) tablet Take 2 tablets (6 mg total) by mouth nightly. Past Week metFORMIN XR (GLUCOPHAGE XR) 750 mg 24 hr tablet Take 1 tablet (750 mg total) by mouth nightly. Past Week metoprolol (LOPRESSOR) 12.5 mg Take 1 split tablet (12.5 mg total) by mouth in the morning and 1 split tablet (12.5 mg total) before bedtime. Past Week PARoxetine (PAXIL) 10 mg tablet Take 1 tablet (10 mg total) by mouth every morning. 10/19/2023 simethicone (MYLICON) 80 mg chewable tablet Chew 1 tablet (80 mg total) and swallow every 6 (six) hours as needed for flatulence. Past Week simvastatin (ZOCOR) 40 mg tablet Take 1 tablet (40 mg total) by mouth nightly. 10/19/2023 ticagrelor (BRILINTA) 90 mg tablet Take 1 tablet (90 mg total) by mouth every 12 (twelve) hours. 10/19/2023 at 0800 benzonatate (TESSALON PERLES) 200 mg capsule Take 1 capsule (200 mg total) by mouth 3 (three) timesa day as needed for cough. (Patient not taking: Reported on 10/20/2023) 20 capsule 0 Past Month HYDROcodone-acetaminophen (NORCO) 5-325 mg per tablet Take 1 tablet by mouth every 6 (six) hours asneeded. (Patient not taking: Reported on 10/20/2023) Past Month nitroglycerin (NITROSTAT) 0.[address] 1 tablet (0.4 mg total) under the tongue every 5 (five) minutes as needed for chest pain. Current Facility-Administered Medications Medication Dose Route Frequency Provider Last Rate Last Admin acetaminophen (TYLENOL) tablet 650 mg 650 mg oral Q4H PRN JOSE D Lee CNP 650 mg at 10/22/23 225 atorvastatin (LIPITOR) tablet 20 mg 20 mg oral Nightly APRIL Preston 20 mg at 10/22/232105 dextrose (GLUTOSE) 40 % gel 15 g 15 g oral PRN APRIL Lee dextrose 50 % in water (D50W) 50% solution 25 mL 25 mL intravenous PRN APRIL Lee famotidine (PF) (PEPCID) injection 20 mg 20 mg intravenous Q24H APRIL Torrez 20 mg at10/22/23 2100 glucagon HCL injection 1 mg 1 mg intramuscular PRN APRIL Lee heparin (porcine) injection 5,000 Units 5,000 Units intravenous PRN Randall Martin MD heparin infusion 57662 units/500 mL in 0.45% NaCl (50 units/mL premix) 300-3,500 Units/hr intravenous Continuous Randall Martin MD 18 mL/hr at 10/23/23 0454 900 Units/hr at 10/23/23 0454 HYDROcodone-acetaminophen (NORCO) 5-325 mg per tablet 1 tablet 1 tablet oral Q6H PRN APRIL Torrez 1 tablet at 10/23/23 1403 insulin lispro (HumaLOG) injection 2-10 Units 2-10 Units subcutaneous TID with meals APRIL Lee 2 Units at 10/20/23 1844 insulin lispro (HumaLOG) injection 2-8 Units 2-8 Units subcutaneous Nightly APRIL Lee magnesium sulfate IVPB 2000 mg/50 mL in iso-osmotic water (40 mg/mL premix) 2,000 mg intravenous PRN APRIL Lee magnesium sulfate IVPB 4000 mg/100 mL in iso-osmotic water (40 mg/mL premix) 4,000 mg intravenous PRN APRIL Lee Stopped at 10/20/23 1319 metoprolol succinate XL (TOPROL XL) 24 hr tablet 25 mg 25 mg oral Daily APRIL Preston 25 mgat 10/23/23 0832 ondansetron (PF) (ZOFRAN) injection 4 mg 4 mg intravenous Q8H PRN APRIL Lee potassium chloride (K-TAB,KLOR-CON) CR tablet 30-40 mEq 30-40 mEq oral PRN APRIL Lee30 mEq at 10/22/23 1102 Or potassium chloride (KAYCIEL) 20 mEq/15 mL solution 30-40 mEq 30-40 mEq oral PRN APRIL Lee sodium chloride 0.9 % flush 3 mL 3 mL intravenous PRN APRIL Lee sodium chloride 0.9 % flush 3 mL 3 mL intravenous Q12H [facility] JOSE D Lee CNP 3 mL at 10/22/23 1103 sodium chloride 0.9 % flush bag 25 mL intravenous PRN APRIL Lee sodium chloride 0.9 % infusion 20 mL/hr intravenous Continuous PRN APRIL Lee ticagrelor (BRILINTA) tablet 90 mg 90 mg oral Q12H [facility] JOSE D Torrez CNP 90 mg at 831 Nutrition Focused Physical Findings last BM 10/22 - loose Unable to complete NFPE - working remote Skin (per nursing flow sheets): Skin Color: [place]; Ecchymosis (10/23/23829) Skin Temp: Warm; Dry (10/23/23829) Wound (per nursing flow sheets): Gastrointestinal (per nursing flow sheets): Abdomen Assessment: Soft; Rounded (10/23/23829) Last BM Date: 10/23/23 (10/23/23 1348) Passing Flatus: Yes (10/23/23829) RUQ Bowel Sounds: Active (10/23/23829) LUQ Bowel Sounds: Active (10/23/23829) RLQ Bowel Sounds: Active (10/23/23829) LLQ Bowel Sounds: Active (10/23/23829) GI Symptoms: None (10/23/23829) Edema (per nursing flow sheets): Generalized Edema: +1 (10/23/23 08) RLE Edema: +1 (10/22/23 1600) LLE Edema: +1 (10/22/23 1600) Overall Appearance: well-developed Intake/ Output Last 24 hrs: Intake/Output Summary (Last 24 hours) at 10/23/2023 1625 Last data filed at 10/23/2023 0011 Gross per 24 hour Intake 240 ml Output 100 ml Net 140 ml Food/Nutrition Related History: Diet History: Regular, consistent carb 255 g diet appropriate and tolerating. Good appetite, per documentation. Attempted to call pt however there was no answer. Reached out to RN who reports pt is eating well. Allergies: No Known Allergies Diet/ Nutrition Order Review: Dietary Orders (From admission, onward) Start Ordered 10/20/23 0858 Adult diet Regular Texture; Consistent Carb 255 grams (2000 kcal) Diet effective now Question Answer Comment Diet Type: Regular Texture Carbohydrate Modifiers: Consistent Carb 255 grams (2000 kcal) 10/20/23 0900 Diet Intakes: Percent Meals Eaten (%): 50 (10/22/23 1600) 50-100% - good overall Oral Supplemental Intake/ Acceptance: not necessary at this time Anthropometrics: Ht Readings from Last 1 Encounters: 10/20/23 152.4 cm (5') Wt Readings from Last 20 Encounters: 10/23/23 100.9 kg (222 lb 7.1 oz) 10/12/23 105.6 kg (232 lb 12.9 oz) 10/04/23 106.1 kg (234 lb) 09/21/23 106.1 kg (234 lb) 09/11/23 101.7 kg (224 lb 3.2 oz) 08/06/23 110.5 kg (243 lb 9.6 oz) 07/28/23 101.1 kg (222 lb 14.2 oz) Last 3 Weight Readings 10/22/23 0440 10/23/23 0500 10/23/23 1156 Weight: 94.6 kg (208 lb 8.9 oz) 97.3 kg (214 lb 8.1 oz) 100.9 kg (222 lb 7.1 oz) Admit Weight: 96.5 kg (Bed Scale, 10/20); CBW 100.9 kg 10/22 Usual Body Weight: see above Beccaria Body Weight: 48 kg Percent Beccaria Body Weight: 201% Weight Changes: 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 BMI Category: Obese class 3 (> or = 40.00) Comparative Standards: Estimated Energy Needs: 4600-6815 kcals daily. Method and weight used: 28-32 kcal/kg IBW Estimated Protein Needs: 58-96 grams daily. Method and weight used: 1.2-2g protein/kg IBW Estimated Fluid Needs: 1440 ml daily. Method weight used: 30 ml/kg IBW Comments: general needs Malnutrition Status: Malnutrition Present: No NUTRITION DIAGNOSIS: No Diagnosis: No nutrition diagnosis at this time (NO 1.1) NUTRITION INTERVENTIONS: Meals & snacks: provide diet as ordered GOAL(S): intake to meet EEN NUTRITION MONITORING AND EVALUATION: labs, weight, PO intake, tolerance to ordered diet, GI status,POC Kate Weaver RD, NIVIA [facility] Clinical Dietitian [facility] Office Number: 10/23/23 6:19 PM * Julia Man MD - 10/23/2023 12:06 PM EDT Images from the original note were not included. [facility] INTERNAL MEDICINE [facility] [id number] [facility] [id number] [facility] Medicine Progress Note Patient: Brian Mandel Date of : 1950 Room: [address] [place] [address] PCP: Melanie Taylor DO Admission date: 10/20/2023 8:14 AM Encounter date: 10/23/23 Hospital Day: 4 SUBJECTIVE Chief complaints: No chief complaint on file. Interval History: Status: stable. No overnight events or new complaints. Patient remains on heparin drip. He denies any chest pain or shortness of breath at this time. Was anticipating kyphoplasty, anesthesiology feels patient is too high risk. Cardiology has cleared the patient at high-risk. Surgeon is comfortable doing kyphoplasty while on Brilinta and blood thinners.No leukocytosis, patient has remained afebrile. Anesthesia was concern as the patient has moderate to severe and did have syncope. The option could be pain management versus kyphoplasty weighing out the risk. Overall high risk, suspect it probably was mainly based on the not the CAD Review of Systems Constitutional: Negative for chills and fever. HENT: Negative for ear pain and sore throat. Eyes: Negative for pain and visual disturbance. Respiratory: Negative for cough and shortness of breath. Cardiovascular: Negative for chest pain and palpitations. Gastrointestinal: Negative for abdominal pain and vomiting. Genitourinary: Negative for dysuria and hematuria. Musculoskeletal: Positive for back pain. Negative for arthralgias. Skin: Negative for color change and rash. Neurological: Negative for seizures and syncope. All other systems reviewed and are negative. OBJECTIVE BP 126/41 Pulse 59 Temp 36.5 C (97.7 F) (Oral) Resp 20 Ht 152.4 cm (5') Wt 100.9 kg (222lb 7.1 oz) SpO2 100% BMI 43.44 kg/m Temp: [36.4 C (97.5 F)-36.9 C (98.4 F)] 36.5 C (97.7 F) Pulse: [58-62] 59 Resp: [14-20] 20 BP: (95-126)/(41-53) 126/41 SpO2: [98 %-100 %] 100 % O2 Device: Nasal cannula O2 Flow Rate (L/min): [2 L/min] 2 L/min Intake/Output Summary (Last 24 hours) at 10/23/2023 1206 Last data filed at 10/23/2023 0011 Gross per 24 hour Intake 240 ml Output 100 ml Net 140 ml Physical Exam Constitutional: General: He is not in acute distress. Appearance: He is well-developed. HENT: Head: Normocephalic. Right Ear: External ear normal. Left Ear: External ear normal. Nose: Nose normal. Eyes: Conjunctiva/sclera: Conjunctivae normal. Pupils: Pupils are equal, round, and reactive to light. Cardiovascular: Rate and Rhythm: Normal rate and regular rhythm. Heart sounds: Normal heart sounds. No murmur heard. Pulmonary: Effort: Pulmonary effort is normal. Breath sounds: Normal breath sounds. No wheezing. Abdominal: General: Bowel sounds are normal. Palpations: Abdomen is soft. There is no mass. Tenderness: There is no abdominal tenderness. Musculoskeletal: General: Normal range of motion. Cervical back: Normal range of motion. Lymphadenopathy: Cervical: No cervical adenopathy. Skin: General: Skin is warm and dry. Findings: No rash. Neurological: Mental Status: He is alert. Cranial Nerves: No cranial nerve deficit. Coordination: Coordination normal. Psychiatric: Behavior: Behavior normal. Medications Scheduled: atorvastatin, 20 mg, oral, Nightly famotidine, 20 mg, intravenous, Q24H insulin lispro, 2-10 Units, subcutaneous, TID with meals insulin lispro, 2-8 Units, subcutaneous, Nightly metoprolol succinate XL, 25 mg, oral, Daily sodium chloride, 3 mL, intravenous, Q12H LYNN ticagrelor, 90 mg, oral, Q12H LYNN Infusions: heparin, 300-3,500 Units/hr, Last Rate: 900 Units/hr (10/23/23 8020) sodium chloride 0.9 %, 20 mL/hr As Needed: acetaminophen dextrose dextrose 50 % in water (D50W) glucagon (human recombinant) heparin (porcine) HYDROcodone-acetaminophen magnesium sulfate magnesium sulfate ondansetron potassium chloride OR potassium chloride sodium chloride sodium chloride sodium chloride 0.9 % Allergies: Patient has no known allergies. Code Status: Full Code Labs Recent Results (from the past 24 hour(s)) Anti XA unfractionated heparin Collection Time: 10/22/23 12:49 PM Result Value Ref Range Heparin anti-xa, unfractionated 1.16 (HH) 0.30 - 0.70 IU/mL Potassium Collection Time: 10/22/23 3:09 PM Result Value Ref Range Potassium, Bld 4.1 3.5 - 5.0 mmol/L Bedside Glucose *Place/Obtain serum glucose if >500(>600 MRH) per glucometer. Collection Time: 10/22/23 4:26 PM Result Value Ref Range Bedside glucose 105 (H) 65 - 99 mg/dL Anti XA unfractionated heparin Collection Time: 10/22/23 7:58 PM Result Value Ref Range Heparin anti-xa, unfractionated 0.93 (HH) 0.30 - 0.70 IU/mL Bedside Glucose *Place/Obtain serum glucose if >500(>600 MRH) per glucometer. Collection Time: 10/22/23 8:31 PM Result Value Ref Range Bedside glucose 112 (H) 65 - 99 mg/dL Comprehensive metabolic panel Collection Time: 10/23/23 2:46 AM Result Value Ref Range Sodium 139 134 - 146 mmol/L Potassium, Bld 4.2 3.5 - 5.0 mmol/L Chloride 106 98 - 109 mmol/L CO2 27 22 - 32 mmol/L Anion gap 6 5 - 15 mmol/L BUN 9 5 - 27 mg/dL Creatinine 1.18 0.70 - 1.20 mg/dL Glucose 93 65 - 99 mg/dL Calcium 8.7 8.5 - 10.5 mg/dL Total Protein 6.4 6.0 - 8.0 g/dL Albumin 2.8 (L) 3.2 - 5.3 g/dL Alkaline Phosphatase 120 39 - 130 U/L AST 27 0 - 41 U/L ALT 22 0 - 40 U/L Total bilirubin 0.6 0.3 - 1.2 mg/dL eGFR (CKD-EPI)non-race dependent 64 >59 ml/min/1.73sq.m Magnesium Collection Time: 10/23/23 2:46 AM Result Value Ref Range Magnesium 1.7 (L) 1.8 - 2.6 mg/dL CBC auto differential Collection Time: 10/23/23 2:46 AM Result Value Ref Range White Blood Cells 7.7 4.0 - 11.0 X10E9/L RBC count 2.46 (L) 4.10 - 5.70 X10E12/L Hemoglobin 8.1 (L) 13.0 - 17.0 g/dL Hematocrit 24.1 (L) 39 - 49 % MCV 98 80 - 100 fL MCH 33.1 27 - 34 pg MCHC 33.8 32 - 36 g/dL RDW 18.4 (H) 11.5 - 15.0 % Platelets 159 150 - 450 X10E9/L MPV 10.1 7 - 12 fL % neutrophils 63.1 % % lymphocytes 23.6 % % monocytes 6.1 % % eosinophils 6.3 % % Basophils 0.9 % Neutrophils Absolute (A) 4.9 1.5 - 6.6 X10E9/L Lymphocytes Absolute 1.8 1.0 - 3.5 X10E9/L Monocytes Absolute 0.5 0 - 0.9 X10E9/L Eosinophils Absolute 0.5 (H) 0.0 - 0.4 X10E9/L Basophils Absolute 0.1 0.0 - 0.2 X10E9/L Anti XA unfractionated heparin Collection Time: 10/23/23 2:46 AM Result Value Ref Range Heparin anti-xa, unfractionated 0.74 (H) 0.30 - 0.70 IU/mL Bedside Glucose *Place/Obtain serum glucose if >500(>600 MRH) per glucometer. Collection Time: 10/23/23 8:07 AM Result Value Ref Range Bedside glucose 88 65 - 99 mg/dL Anti XA unfractionated heparin Collection Time: 10/23/23 10:18 AM Result Value Ref Range Heparin anti-xa, unfractionated 0.62 0.30 - 0.70 IU/mL Magnesium Collection Time: 10/23/23 10:18 AM Result Value Ref Range Magnesium 1.7 (L) 1.8 - 2.6 mg/dL Radiology No results found. HOSPITAL PROBLEM LIST Principal Problem: T12 compression fracture [place] Active Problems: Benign essential hypertension Chronic diastolic congestive heart failure ([facility]) COPD (chronic obstructive pulmonary disease) ([facility] Dyslipidemia Type 2 diabetes mellitus with hyperglycemia, without long-term current use of insulin ([facility]) ASSESSMENT & PLAN T12 compression fracture Orthopedic input appreciated Plan for kyphoplasty 10/22/2023 Echo- systolic function is normal with an EF of 60-65% Cardiology cleared patient at high-risk, no absolute cardiac contraindications for this planned surgery Pain control- PRN's Chronic diastolic congestive heart failure/COPD/shortness of breath BNP 104 D-dimer 4961 Perfusion scan showing large perfusion deficit involving majority of left lung, intermediate probability of pulmonary embolism Pulmonology input appreciated Heparin drip continues Plans to start Eliquis after kyphoplasty Benign essential hypertension Toprol-XL 25 mg daily Type 2 diabetes Short-acting sliding scale coverage Dyslipidemia Atorvastatin 20 mg nightly Magaly Brown APRN-SHERIDAN 10/23/2023 12:06 PM [facility] Internal Medicine 7AM-7PM (all facilities): EpicChat or page through [employer]. 7PM-7AM ([facility], [facility] Psychiatry and Inpatient Rehab): EpicChat or page, [phone]. 7PM-7AM ([facility], [place], [place] and [facility] Rehab): EpicChat or page through [employer]. Magaly Brown, SPENCER-SHERIDAN 10/23/23 4019 Physician Attestation I, Julia Man MD, personally performed a face to face diagnostic evaluation on this patient. I have reviewed the note authored by the advance practice provider including history, review of systems,physical examination,medical decision making and agree with the assessment and plan as written. I have seen and evaluated the patient, I have repeated the benoit portions of the physical exam and concur with the RASHAUN findings. I have reviewed all laboratory findings and imaging reports/films. I agree with the plan as noted. * Randall Martin MD - 10/23/2023 11:37 AM EDT Images from the original note were not included. Pulmonary Progress Note Patient - Brian Mandel Age - 73 y.[facility]. - 1950 [id number] Date of Admission - 10/20/2023 8:14 AM Consulting Service/Physician Consulting: Consulting Providers Provider Service Specialty Timmy Acosta DO -- Orthopedic Surgery Randall Martin MD Z Pulmonology Pulmonary Medicine Matt Montemayor MD Cardiology Cardiology Primary Care Physician: Melanie Taylor DO REASON FOR VISIT: PE, COPD, chronic hypoxic respiratory failure REVIEW OF SYMPTOMS: Cough - no chest pain- no Shortness of breath - baseline fever - no Hemoptysis- no Sinus drainage, sore throat - no Abdominal pain - no Nausea, vomiting - no Diarrhea, constipation - no Swelling feet- no Rashes- no Headache - no Events since last visit : None Past Medical History: Past Medical History: Diagnosis Date Acute coronary syndrome ([facility] Anxiety disorder Chronic back pain Chronic obstructive asthma with exacerbation ([facility]) COPD (chronic obstructive pulmonary disease) [place]) Diabetes mellitus type 2, controlled ([facility]) Essential hypertension Folate deficiency anemia Heart failure ([facility]) Megaloblastic anemia VT (myocardial infarction) ([facility]) 06/2023 Muscle weakness (generalized) Myocardial infarct ([facility]) Obesity Obstructive sleep apnea SARAH (obstructive sleep apnea) Pancytopenia ([facility]) Presence of coronary artery bypass graft stent Shock ([facility]) 10/05/2023 Supplemental oxygen dependent , Past Surgical History: Procedure Laterality Date CARDIAC SURGERY X2 Social History: Social History Socioeconomic History Marital status: Spouse name: Not on file Number of children: Not on file Years of education: Not on file Highest education level: Not on file Occupational History Not on file Tobacco Use Smoking status: Never Smokeless tobacco: Never Vaping Use Vaping status: Never Used Substance and Sexual Activity Alcohol use: Not Currently Comment: last drink 2003 Drug use: Never Sexual activity: Defer Other Topics Concern Not on file Social History Narrative Not on file Social Determinants of Health Financial Resource Strain: Low Risk (07/23/2023) Overall Financial Resource Strain (CARDIA) Difficulty of Paying Living Expenses: Not hard at all Food Insecurity: No Food Insecurity (10/20/2023) Hunger Screening Food Insecurity - Worry: Never True Food Insecurity - Inability: Never True Transportation Needs: No Transportation Needs (10/20/2023) PRAPARE - Transportation Lack of Transportation (Medical): No Lack of Transportation (Non-Medical): No Physical Activity: Insufficiently Active (07/23/2023) Exercise Vital Sign Days of Exercise per Week: 2 days Minutes of Exercise per Session: 10 min Stress: Stress Concern Present (07/23/2023) [employer] [place] [employer] - Occupational Stress Questionnaire Feeling of Stress : Very much Social Connections: Socially Isolated (07/23/2023) Social Connection and Isolation Panel [NHANES] Frequency of Communication with Friends and Family: Three times a week Frequency of Social Gatherings with Friends and Family: Three times a week Attends Confucianist Services: Never Active Member of Clubs or Organizations: No Attends Club or Organization Meetings: Never Marital Status: Interpersonal Safety: Not At Risk (10/20/2023) Humiliation, Afraid, Rape, and Kick questionnaire Fear of Current or Ex-Partner: No Emotionally Abused: No Physically Abused: No Sexually Abused: No Housing Instability: Low Risk (10/20/2023) Housing Instability Housing Instability: No SUBJECTIVE VITALS height is 152.4 cm (5') and weight is 97.3 kg (214 lb 8.1 oz). His oral temperature is 36.4 C (97.5F). His blood pressure is 100/45 and his pulse is 59. His respiration is 20 and oxygen saturation is 100%. Temperature Range: Temp (24hrs), Av.6 C (97.9 F), Min:36.4 C (97.5 F), Max:36.9 C (98.4 F) BP Range: Systolic (24hrs), Av , Min:95 , Max:114 Pulse Range: Pulse Av.4 Min: 55 Max: 77 Respiration Range: Resp Av.9 Min: 14 Max: 26 Current Pulse Ox: Temp: 36.4 C (97.5 F) 24HR Pulse Ox Range: Temp Av.6 C (97.9 F) Min: 36.3 C (97.4 F) Max: 37 C (98.6 F) Oxygen Amount and Delivery: O2 Device: Nasal cannula O2 Flow Rate (L/min): 2 L/min Wt Readings from Last 3 Encounters: 10/23/23 97.3 kg (214 lb 8.1 oz) 10/12/23 105.6 kg (232 lb 12.9 oz) 10/04/23 106.1 kg (234 lb) I/O (24 Hours) Intake/Output Summary (Last 24 hours) at 10/23/2023 1137 Last data filed at 10/23/2023 0011 Gross per 24 hour Intake 240 ml Output 100 ml Net 140 ml Exam General Appearance - Awake, alert, in no acute distress, 2 l nc HEENT - normocephalic, atraumatic. Neck - Supple, trachea midline Lungs - Fair air entry bilaterally, breath sounds vesicular, no rhonchi, no rales or crackles Cardiovascular - Heart sounds are normal. Regular rate and rhythm. Abdomen - soft, nontender, nondistended, no masses or organomegaly Neurologic - There are no focal motor or sensory deficits Skin - no bruising or bleeding Extremities - no cyanosis, clubbing or edema Meds Current Facility-Administered Medications: acetaminophen (TYLENOL) tablet 650 mg, 650 mg, oral, Q4H PRN, APRIL Lee, 650 mg at 10/22/23 2259 atorvastatin (LIPITOR) tablet 20 mg, 20 mg, oral, Nightly, JOSE D Preston CNP, 20 mg at 106 dextrose (GLUTOSE) 40 % gel 15 g, 15 g, oral, PRN, APRIL Lee dextrose 50 % in water (D50W) 50% solution 25 mL, 25 mL, intravenous, PRN, APRIL Lee famotidine (PF) (PEPCID) injection 20 mg, 20 mg, intravenous, Q24H, APRIL Torrez, 20 mg at 10/22/23 2100 glucagon HCL injection 1 mg, 1 mg, intramuscular, PRN, APRIL Lee heparin (porcine) injection 5,000 Units, 5,000 Units, intravenous, PRN, Randall Martin MD heparin infusion 73380 units/500 mL in 0.45% NaCl (50 units/mL premix), 300- 3,500 Units/hr, intravenous, Continuous, Randall Martin MD, Last Rate: 18 mL/hr at 10/23/23 0454, 900 Units/hr at 10/23/23 0454 HYDROcodone-acetaminophen (NORCO) 5-325 mg per tablet 1 tablet, 1 tablet, oral, Q6H PRN, Cindy Cisneros, APRIL, 1 tablet at 10/23/23 0529 insulin lispro (HumaLOG) injection 2-10 Units, 2-10 Units, subcutaneous, TID with meals, APRIL Lee, 2 Units at 10/20/23 1844 insulin lispro (HumaLOG) injection 2-8 Units, 2-8 Units, subcutaneous, Nightly, APRIL Lee magnesium sulfate IVPB 2000 mg/50 mL in iso-osmotic water (40 mg/mL premix), 2,000 mg, intravenous,PRN, APRIL Lee magnesium sulfate IVPB 4000 mg/100 mL in iso-osmotic water (40 mg/mL premix), 4,000 mg, intravenous, PRN, APRIL Lee, Stopped at 10/20/23 1319 metoprolol succinate XL (TOPROL XL) 24 hr tablet 25 mg, 25 mg, oral, Daily, APRIL Preston, 25 mg at 10/23/23 0832 ondansetron (PF) (ZOFRAN) injection 4 mg, 4 mg, intravenous, Q8H PRN, APRIL Lee potassium chloride (K-TAB,KLOR-CON) CR tablet 30-40 mEq, 30-40 mEq, oral, PRN, 30 mEq at 10/22/23 1102 OR potassium chloride (KAYCIEL) 20 mEq/15 mL solution 30-40 mEq, 30-40 mEq, oral, PRN, APRIL Bravo sodium chloride 0.9 % flush 3 mL, 3 mL, intravenous, PRN, APRIL Lee sodium chloride 0.9 % flush 3 mL, 3 mL, intravenous, Q12H LYNN, Deanna Hendrickson APRN-SHERIDAN, 3 mL at 10/22/23 1103 sodium chloride 0.9 % flush bag, 25 mL, intravenous, PRN, Deanna Hendrickson APRN-SHERIDAN sodium chloride 0.9 % infusion, 20 mL/hr, intravenous, Continuous PRN, APRIL Lee ticagrelor (BRILINTA) tablet 90 mg, 90 mg, oral, Q12H LYNN, Cindy Cisneros, SPENCER-SHERIDAN, 90 mg at 10/23/23 0831 ALLERGIES: No Known Allergies Results from last 3 days Lab Units 10/23/23 1018 10/23/23 0246 10/22/23 1509 10/22/23 0531 10/21/23 0649 10/20/23 2026 10/20/23 1447 BUN mg/dL -- 9 -- 12 18 -- -- CREATININE mg/dL -- 1.18 -- 1.13 1.34* -- -- POTASSIUM mmol/L -- 4.2 4.1 3.8 4.2 3.5 3.1* CO2 mmol/L -- 27 -- 26 28 -- -- CHLORIDE mmol/L -- 106 -- 103 103 -- -- MAGNESIUM mg/dL 1.7* 1.7* -- 2.3 2.5 2.6 -- AST U/L -- 27 -- 29 31 -- -- ALT U/L -- 22 -- 23 22 -- -- ALK PHOS U/L -- 120 -- 110 101 -- -- Results from last 3 days Lab Units 10/20/23 1628 INR 1.2* PROTIME sec 13.4* Results from last 3 days Lab Units 10/23/23 0246 10/22/23 0531 10/21/23 0649 10/20/23 1628 WBC X10E9/L 7.7 7.5 7.5 -- HEMOGLOBIN g/dL 8.1* 8.0* 8.3* 8.8* HEMATOCRIT % 24.1* 24.3* 24.6* -- PLATELETS X10E9/L 159 158 175 176 MCV fL 98 98 97 -- MCH pg 33.1 32.5 32.7 -- MCHC g/dL 33.8 33.1 33.8 -- RDW % 18.4* 17.8* 17.6* -- EOS ABS AUTO X10E9/L 0.5* 0.5* 0.4 -- Microbiology Results No results found for the last 168 hours. Glucose Results from last 7 days Lab Units 10/23/23 0807 10/23/23 0246 10/22/23203010/22/23 1626 10/22/23 0840 10/22/23 0531 10/21/23203310/21/23 1713 10/21/23 1208 10/21/23 0819 10/21/23 0649 10/20/232123 BEDSIDE GLUCOSE mg/dL 88 -- 112* 105* 96 -- 115* 123* 103* 108* -- 152* GLUCOSE mg/dL -- 93 -- -- -- 96 -- -- -- -- 109* -- I/O last 3 completed shifts: In: 1261.6 [P.O.:240; I.V.:987.5; IV Piggyback:34.1] Out: 250 [Urine:250] Microbiology Results No results found for the last 168 hours. Lines/Drains Peripheral IV 10/20/23 Left Antecubital (Active) Line Status Infusing 10/21/23848 Site Assessment Clean;Dry;Intact 10/21/23848 Dressing Type Occlusive;Transparent 10/21/23848 Dressing Status Dry;Intact;Clean 10/21/23848 Dressing Intervention Initial dressing 10/20/23143 Specimen Obtained Yes 10/20/23143 Specimen Status Sent for analysis 10/20/23143 Amount Drawn (mL) 10 mL 10/20/23143 Dressing Change Due (Non-Gauze) 10/27/23 10/20/23143 Echo limited W/O contrast Result Date: 10/21/2023 Left Ventricle: Systolic function is normal with an ejection fraction of 60-65%. The quantitative EF by 2D [place] biplane is 63%. No obvious regional wall motion abnormalities. Pericardium: There isno pericardial effusion. CT Ion Chest without contrast Result Date: 10/20/2023 History: Respiratory illness, nondiagnostic xray Exam/Technique: Serial axial CT images of the chest were obtained without IV dye. All CT scans at this facility use dose modulation, iterative reconstruction, and/or weight based dosing when appropriate to reduce radiation dose to as low as reasonably achievable. Automated exposure control was utilized. Computer aided detection for pulmonary nodules?was performed utilizing Tier 3.via software.? Comparison: 10/04/2023 Findings: Neck base is grossly unremarkable.. Midline sternotomy wires are grossly intact. There is no gross soft tissue abnormality at the surgical bed there are cardiac surgical changes with no significant cardiomegaly or pericard ial effusion. There are severe coronary artery calcifications. There is moderate degree of diffuse atherosclerotic disease and calcified intimal plaque throughout thoracic aorta with maximum transverse diameter of 3.9 cm of the ascending segment. There is no pathological mediastinal lymphadenopathyby size criteria. There is small left-sided pleural effusion with left lower lobe alveolar opacity possibly atelectasis versus consolidation. Findings are less prominent compared to prior exam. Thereare central groundglass opacities throughout both lungs raising concern for pulmonary edema or interstitial pneumonia. There is 6 mm right lower lobe pulmonary nodule. This is best identified at axial image #111 series 2. A non-calcified 6 mm solid nodule in the right lower lobe is indeterminate. There is moderate fatty infiltration of the pancreas. There is heterogeneous and irregular hepatic contour. Underlying liver cirrhosis cannot be excluded. Spleen and adrenal glands are unremarkable. There are few calcified nonobstructing bilateral renal stones with average diameter of 2 to 3 mm. IMPRESSION: There is interval decrease in the degree of left-sided pleural effusion and left alveolar opacity possibly atelectasis versus consolidation. There is interval development of central bilateral g roundglass opacity raising concern for pulmonary edema or interstitial pneumonia. Indeterminate solid pulmonary nodule measuring 6 mm. In a patient of unknown risk level with a solid nodule of 6-8 mm, recommend CT at 6-12 months. In a low-risk patient, then consider CT at 18-24 months. In a high-risk patient, if the nodule is stable at 6-12 months, recommend CT at 18-24 months. Seymour Garcia et al.Guidelines for Management of Incidental Pulmonary Nodules Detected on CT Images: From the Fleischner Society 2017. Radiology. 2017 Umesh;284(1):228-243. Finalized by Elizabeth Pfeiffer MD on 10/20/2023 7:12 PM Vas venous duplex lwr bilateral Result Date: 10/20/2023 Right: Common femoral, femoral, popliteal and deep calf muscle veins are compressible without intraluminal content. Spontaneous, phasic common femoral, femoral and popliteal spectral Doppler signals.Compressible thigh superficial Great saphenous vein. Left: Common femoral, femoral, popliteal and deep calf muscle veins are compressible without intraluminal content. Spontaneous, phasic common femoral, femoral and popliteal spectral Doppler signals. Absent Great saphenous superficial vein in the thigh. General: In-patient, bedside examination. Conclusions: RIGHT: NO EVIDENCE of deep or superficial vein thrombosis of the lower extremity.LEFT: The great saphenous vein is not visualized or surgically absent in the thigh. NO EVIDENCE of deep or superficial vein thrombosis of the lower extremity. Recommendations: Any questions prior to finalization, please call the reading physician during normal business hours at the phone number beside their name. NM pulmonary perfusion scan Result Date: 10/20/2023 PERFUSION LUNG SCAN COMPARISON: None. CORRELATION: Chest radiograph 10/20/2023 HISTORY: Chest pain, shortness breath. TECHNIQUE: 5.6 mCi technetium 99m MAA injected intravenously without reported complication. Planar images of the lungs obtained in multiple projections for both ventilation and perfusion. FINDINGS: Normal heterogeneous uptake seen within the right lung. Large perfusion defect involving a majority of the left mid/lower lung. Of note, patient has evidence of moderate left pleural effusion on prior chest x-ray which may be causing significant compressive atelectasis IMPRESSION: * Large perfusion defect involving majority of the left mid/lower lung with underlying pleural effusion on the chest radiograph.. * Intermediate probability for pulmonary embolism. * A central or hilar obstructing lesion to the left lower lobe cannot be excluded in the setting. * Ventilation imaging was not performed. Approved by Resident Pavan Durbin DO on 10/20/2023 2:00 PM Kye Marcial MD have personally reviewed the image(s) and agree with and/or edited the report Finalized by Kye Kapadia MD on 10/20/2023 2:20 PM Echo limited W/ contrast Result Date: 09/08/2023 Left Ventricle: Left ventricle appears normal in size. Wall thickness is normal. Systolic function is normal with an ejection fraction of 55-60%. See wall score diagram for wall motion abnormalities.Pericardium: There is pleural effusion. The study had technical difficulties. The study was difficult due to patient's body habitus and poor acoustic windows. Echo complete W/ contrast Result Date: 07/27/2023 Left Ventricle: Left ventricle appears normal in size. Systolic function is normal with an ejectionfraction of 55-60%. Right Ventricle: Systolic function is mildly reduced. Abnormal tricuspid annular plane systolic excursion. Aortic Valve: There is moderate to severe regurgitation. There is moderate to severe stenosis. The calculated aortic valve area is 0.59 cm2. The calculated aortic valve peak gradient is 68.00 mmHg. The calculated aortic valve mean gradient is 36.00 mmHg. Tricuspid Valve: There is mild to moderate regurgitation. There is no evidence of tricuspid valve stenosis. ASSESSMENT / PLAN: PE - high prob VQ scan - s Heparin gtt Cardiac echo - EF 63%, no RV failure Chronic hypoxic resp failure- baseline O2 2L Hx SARAH T12 Fx Ok to proceed with kyphoplasty; awaiting procedure Okay to start eliquis after kyphoplasty * Gagan Valdez MD - 10/23/2023 10:16 AM EDT Images from the original note were not included. [facility] [address] [place] [address] PROGRESS NOTE 10/23/2023 10:16 AM Subjective: Mr. Mandel has no chest pain Current Meds: Current Facility-Administered Medications: acetaminophen (TYLENOL) tablet 650 mg, 650 mg, oral, Q4H PRN, APRIL Lee, 650 mg at 10/22/23 7182 atorvastatin (LIPITOR) tablet 20 mg, 20 mg, oral, Nightly, JOSE D Preston CNP, 20 mg at 106 dextrose (GLUTOSE) 40 % gel 15 g, 15 g, oral, PRN, APRIL Lee dextrose 50 % in water (D50W) 50% solution 25 mL, 25 mL, intravenous, PRN, APRIL Lee famotidine (PF) (PEPCID) injection 20 mg, 20 mg, intravenous, Q24H, APRIL Torrez, 20 mg at 10/22/23 2100 glucagon HCL injection 1 mg, 1 mg, intramuscular, PRN, APRIL Lee heparin (porcine) injection 5,000 Units, 5,000 Units, intravenous, PRN, Randall Martin MD heparin infusion 16313 units/500 mL in 0.45% NaCl (50 units/mL premix), 300- 3,500 Units/hr, intravenous, Continuous, Randall Martin MD, Last Rate: 18 mL/hr at 10/23/23 0454, 900 Units/hr at 10/23/23 0454 HYDROcodone-acetaminophen (NORCO) 5-325 mg per tablet 1 tablet, 1 tablet, oral, Q6H PRN, APRIL Torrez, 1 tablet at 10/23/23 0529 insulin lispro (HumaLOG) injection 2-10 Units, 2-10 Units, subcutaneous, TID with meals, APRIL Lee, 2 Units at 10/20/23 1844 insulin lispro (HumaLOG) injection 2-8 Units, 2-8 Units, subcutaneous, Nightly, APRIL Lee magnesium sulfate IVPB 2000 mg/50 mL in iso-osmotic water (40 mg/mL premix), 2,000 mg, intravenous,PRN, APRIL Lee magnesium sulfate IVPB 4000 mg/100 mL in iso-osmotic water (40 mg/mL premix), 4,000 mg, intravenous, PRN, APRIL Lee, Stopped at 10/20/23 1319 metoprolol succinate XL (TOPROL XL) 24 hr tablet 25 mg, 25 mg, oral, Daily, APRIL Preston, 25 mg at 10/23/23 0832 ondansetron (PF) (ZOFRAN) injection 4 mg, 4 mg, intravenous, Q8H PRN, APRIL Lee potassium chloride (K-TAB,KLOR-CON) CR tablet 30-40 mEq, 30-40 mEq, oral, PRN, 30 mEq at 10/22/23 1102 OR potassium chloride (KAYCIEL) 20 mEq/15 mL solution 30-40 mEq, 30-40 mEq, oral, PRN, Danica Hendrickson APRN-SHERIDAN sodium chloride 0.9 % flush 3 mL, 3 mL, intravenous, PRN, Deanna Hendrickson APRN-SHERIDAN sodium chloride 0.9 % flush 3 mL, 3 mL, intravenous, Q12H LYNN, Deanna Hendrickson APRN-SHERIDAN, 3 mL at 10/22/23 1103 sodium chloride 0.9 % flush bag, 25 mL, intravenous, PRN, Deanna Hendrickson APRN-SHERIDAN sodium chloride 0.9 % infusion, 20 mL/hr, intravenous, Continuous PRN, APRIL Lee ticagrelor (BRILINTA) tablet 90 mg, 90 mg, oral, Q12H LYNN, Cindy Cisneros APRN-RN REFERRAL, 90 mg at 10/23/23 0831 Continuous Infusions: heparin, 300-3,500 Units/hr, Last Rate: 900 Units/hr (10/23/23 0454) sodium chloride 0.9 %, 20 mL/hr VITAL SIGNS BP 100/45 Comment: misfiled wrong patient. fixed now Pulse 59 Temp 36.4 C (97.5 F) (Oral) Resp 20 Ht 152.4 cm (5') Wt 97.3 kg (214 lb 8.1 oz) SpO2 100% BMI 41.89 kg/m 2 L/min Admit Weight: 96.5 kg (212 lb 11.9 oz) Last 3 weights: Wt Readings from Last 3 Encounters: 10/23/23 97.3 kg (214 lb 8.1 oz) 10/12/23 105.6 kg (232 lb 12.9 oz) 10/04/23 106.1 kg (234 lb) BMI: Body mass index is 41.89 kg/m . INPUT/OUTPUT: Intake/Output Summary (Last 24 hours) at 10/23/2023 1016 Last data filed at 10/23/2023 0011 Gross per 24 hour Intake 240 ml Output 100 ml Net 140 ml Current Meds: Current Facility-Administered Medications: acetaminophen (TYLENOL) tablet 650 mg, 650 mg, oral, Q4H PRN, APRIL Lee, 650 mg at 10/22/23 2259 atorvastatin (LIPITOR) tablet 20 mg, 20 mg, oral, Nightly, JOSE D Preston CNP, 20 mg at 106 dextrose (GLUTOSE) 40 % gel 15 g, 15 g, oral, PRN, APRIL Lee dextrose 50 % in water (D50W) 50% solution 25 mL, 25 mL, intravenous, PRN, APRIL Lee famotidine (PF) (PEPCID) injection 20 mg, 20 mg, intravenous, Q24H, APRIL Torrez, 20 mg at 10/22/23 2100 glucagon HCL injection 1 mg, 1 mg, intramuscular, PRN, APRIL Lee heparin (porcine) injection 5,000 Units, 5,000 Units, intravenous, PRN, Randall Martin MD heparin infusion 07152 units/500 mL in 0.45% NaCl (50 units/mL premix), 300- 3,500 Units/hr, intravenous, Continuous, Randall Martin MD, Last Rate: 18 mL/hr at 10/23/23 0454, 900 Units/hr at 10/23/23 0454 HYDROcodone-acetaminophen (NORCO) 5-325 mg per tablet 1 tablet, 1 tablet, oral, Q6H PRN, APRIL Torrez, 1 tablet at 10/23/23 0529 insulin lispro (HumaLOG) injection 2-10 Units, 2-10 Units, subcutaneous, TID with meals, APRIL Lee, 2 Units at 10/20/23 1844 insulin lispro (HumaLOG) injection 2-8 Units, 2-8 Units, subcutaneous, Nightly, APRIL Lee magnesium sulfate IVPB 2000 mg/50 mL in iso-osmotic water (40 mg/mL premix), 2,000 mg, intravenous,PRN, APRIL Lee magnesium sulfate IVPB 4000 mg/100 mL in iso-osmotic water (40 mg/mL premix), 4,000 mg, intravenous, PRN, APRIL Lee, Stopped at 10/20/23 1319 metoprolol succinate XL (TOPROL XL) 24 hr tablet 25 mg, 25 mg, oral, Daily, Asha Cobian, PER DIEM PHYSICAL THERAPIST ASSISTANT-RN REFERRAL, 25 mg at 10/23/23 0832 ondansetron (PF) (ZOFRAN) injection 4 mg, 4 mg, intravenous, Q8H PRN, Deanna Hendrickson APRN-SHERIDAN potassium chloride (K-TAB,KLOR-CON) CR tablet 30-40 mEq, 30-40 mEq, oral, PRN, 30 mEq at 10/22/23 1102 OR potassium chloride (KAYCIEL) 20 mEq/15 mL solution 30-40 mEq, 30-40 mEq, oral, PRN, Danica Hendrickson APRN-SHERIDAN sodium chloride 0.9 % flush 3 mL, 3 mL, intravenous, PRN, Deanna Hendrickson, PER DIEM PHYSICAL THERAPIST ASSISTANT-RN REFERRAL sodium chloride 0.9 % flush 3 mL, 3 mL, intravenous, Q12H LYNN, Deanna Hendrickson APRN-SHERIDAN, 3 mL at 10/22/23 1103 sodium chloride 0.9 % flush bag, 25 mL, intravenous, PRN, Deanna Hendrickson APRN-SHERIDAN sodium chloride 0.9 % infusion, 20 mL/hr, intravenous, Continuous PRN, Deanna Hendrickson APRN-SHERIDAN ticagrelor (BRILINTA) tablet 90 mg, 90 mg, oral, Q12H LYNN, Cindy Cisneros, PER DIEM PHYSICAL THERAPIST ASSISTANT-RN REFERRAL, 90 mg at 10/23/23 0831 Continuous Infusions: heparin, 300-3,500 Units/hr, Last Rate: 900 Units/hr (10/23/23 0454) sodium chloride 0.9 %, 20 mL/hr EXAM: General appearance: In no acute distress. Lungs: Clear to Auscultation bilaterally Heart: regular rate and rhythm S1 S2 Abdomen: Soft nontender Extremities: No edema Psych: Appropriate mood and affect. Awake, alert and oriented x 3. Other: CV HISTORY: ECHO: Echo limited W/O contrast Result Date: 10/21/2023 Left Ventricle: Systolic function is normal with an ejection fraction of 60-65%. The quantitative EF by 2D Hutchinson biplane is 63%. No obvious regional wall motion abnormalities. Pericardium: There isno pericardial effusion. Echo limited W/ contrast Result Date: 09/08/2023 Left Ventricle: Left ventricle appears normal in size. Wall thickness is normal. Systolic function is normal with an ejection fraction of 55-60%. See wall score diagram for wall motion abnormalities.Pericardium: There is pleural effusion. The study had technical difficulties. The study was difficult due to patient's body habitus and poor acoustic windows. Echo complete W/ contrast Result Date: 07/27/2023 Left Ventricle: Left ventricle appears normal in size. Systolic function is normal with an ejectionfraction of 55-60%. Right Ventricle: Systolic function is mildly reduced. Abnormal tricuspid annular plane systolic excursion. Aortic Valve: There is moderate to severe regurgitation. There is moderate to severe stenosis. The calculated aortic valve area is 0.59 cm2. The calculated aortic valve peak gradient is 68.00 mmHg. The calculated aortic valve mean gradient is 36.00 mmHg. Tricuspid Valve: There is mild to moderate regurgitation. There is no evidence of tricuspid valve stenosis. STRESS: No results found. HOLTER: No results found. CARDIAC CATH: No results found. CAROTID: No results found. EKG: CXR: @CXR24@ LABS CBC: Lab Results Component Value Date WBC 7.7 10/23/2023 HGB 8.1 (L) 10/23/2023 HCT 24.1 (L) 10/23/2023 MCV 98 10/23/2023 RDW 18.4 (H) 10/23/2023 PLT 159 10/23/2023 BMP: Lab Results Component Value Date K 4.2 10/23/2023 CL 106 10/23/2023 CO2 27 10/23/2023 BUN 9 10/23/2023 CREATININE 1.18 10/23/2023 EGFR 64 10/23/2023 GLU 93 10/23/2023 GLU 112 (H) 10/22/2023 MG/PHOS: Lab Results Component Value Date MG 1.7 (L) 10/23/2023 PT/INR: Lab Results Component Value Date INR 1.2 (H) 10/20/2023 PTT: No results found for: APTT BNP: Lab Results Component Value Date BNP 104 (H) 10/20/2023 Last 3 Troponin: No components found for: TROPONIN I;3 Lipid Panel: @BRIEFLAB(CHOL,TRIG,HDL,LDLCALCU,CHOLHDL Pulse Ox: )SpO2 Av.6 % Min: 98 % Max: 100 % Supplemental O2: O2 Flow Rate (L/min): 2 L/min Principal Problem: T12 compression fracture ([facility]) Active Problems: Benign essential hypertension Chronic diastolic congestive heart failure ([facility]) COPD (chronic obstructive pulmonary disease) ([facility]) Dyslipidemia Type 2 diabetes mellitus with hyperglycemia, without long-term current use of insulin [place] ASSESSMENT / PLAN MPRESSIONS/PLAN @DX@ 1. Preoperative cardiac risk -was felt to be high risk I was told okay to proceed on Brilinta but now anesthesia and surgery haschanged its mind 2. CAD SP CABG -patent FAULKNER to LAD vein graft to RCA on cardiac catheterization 07/18 in the setting of NSTEMI underwent KARL of the distal main left circ, widely patent FAULKNER to LAD diagonal and PDA 2. Chronic HFpEF -compensated 3. Moderate-severe AI -last echo August 11, 2023 4. Moderate-severe -peak gradient 68 mean 36 mmHg on echo August 11, 2023 5. On supplemental oxygen 6. S/p fall/syncope, T12 compression fracture -apparently conservative management Echo on this admission showed EF 60-65%. I From a CAD standpoint and acceptable risk, I understand anesthesia was concern as the patient has moderate to severe and did have syncope. This will have to be looked into at some point. The option could be pain management versus kyphoplasty weighing out the risk. My partner did say overall highrisk I suspect now it probably was mainly based on the not the CAD * Julia Man MD - 10/22/2023 12:16 PM EDT Images from the original note were not included. [facility] [id number] [place] [id number] Hospital Medicine Progress Note Patient: Brian Mandel Date of : 1950 Room: [address] [place] [address] PCP: Melanie Taylor DO Admission date: 10/20/2023 8:14 AM Encounter date: 10/22/23 Hospital Day: 3 SUBJECTIVE Chief complaints: No chief complaint on file. Interval History: Status: stable. No overnight events or new complaints. Patient remains on heparin drip. He denies any chest pain or shortness of breath at this time. Was anticipating kyphoplasty today, anesthesiology feels patient is too high risk. Cardiology has cleared the patient at high-risk. Surgeon is comfortable doing kyphoplasty while on Brilinta and blood thinners. No leukocytosis, patient has remained afebrile. Review of Systems Constitutional: Negative for chills and fever. HENT: Negative for ear pain and sore throat. Eyes: Negative for pain and visual disturbance. Respiratory: Negative for cough and shortness of breath. Cardiovascular: Negative for chest pain and palpitations. Gastrointestinal: Negative for abdominal pain and vomiting. Genitourinary: Negative for dysuria and hematuria. Musculoskeletal: Positive for back pain. Negative for arthralgias. Skin: Negative for color change and rash. Neurological: Negative for seizures and syncope. All other systems reviewed and are negative. OBJECTIVE BP 101/48 Pulse 55 Temp 36.4 C (97.5 F) (Oral) Resp 16 Ht 152.4 cm (5') Wt 94.6 kg (208 lb 8.9 oz) SpO2 99% BMI 40.73 kg/m Temp: [36.4 C (97.5 F)-36.7 C (98.1 F)] 36.4 C (97.5 F) Pulse: [55-59] 55 Resp: [16-17] 16 BP: (101-108)/(46-54) 101/48 SpO2: [99 %-100 %] 99 % O2 Device: Nasal cannula O2 Flow Rate (L/min): [2 L/min] 2 L/min Intake/Output Summary (Last 24 hours) at 10/22/2023 1216 Last data filed at 10/22/2023 0708 Gross per 24 hour Intake 1021.62 ml Output 450 ml Net 571.62 ml Physical Exam Constitutional: General: He is not in acute distress. Appearance: He is well-developed. HENT: Head: Normocephalic. Right Ear: External ear normal. Left Ear: External ear normal. Nose: Nose normal. Eyes: Conjunctiva/sclera: Conjunctivae normal. Pupils: Pupils are equal, round, and reactive to light. Cardiovascular: Rate and Rhythm: Normal rate and regular rhythm. Heart sounds: Normal heart sounds. No murmur heard. Pulmonary: Effort: Pulmonary effort is normal. Breath sounds: Normal breath sounds. No wheezing. Abdominal: General: Bowel sounds are normal. Palpations: Abdomen is soft. There is no mass. Tenderness: There is no abdominal tenderness. Musculoskeletal: General: Normal range of motion. Cervical back: Normal range of motion. Lymphadenopathy: Cervical: No cervical adenopathy. Skin: General: Skin is warm and dry. Findings: No rash. Neurological: Mental Status: He is alert. Cranial Nerves: No cranial nerve deficit. Coordination: Coordination normal. Psychiatric: Behavior: Behavior normal. Medications Scheduled: atorvastatin, 20 mg, oral, Nightly famotidine, 20 mg, intravenous, Q24H insulin lispro, 2-10 Units, subcutaneous, TID with meals insulin lispro, 2-8 Units, subcutaneous, Nightly metoprolol succinate XL, 25 mg, oral, Daily sodium chloride, 3 mL, intravenous, Q12H LYNN ticagrelor, 90 mg, oral, Q12H LYNN Infusions: heparin, 300-3,500 Units/hr, Last Rate: 1,150 Units/hr (10/22/23 0932) sodium chloride 0.9 %, 20 mL/hr As Needed: acetaminophen dextrose dextrose 50 % in water (D50W) glucagon (human recombinant) heparin (porcine) HYDROcodone-acetaminophen magnesium sulfate magnesium sulfate ondansetron perflutren lipid microspheres (DEFINITY) dilution injection 1.43 mg/10 mL potassium chloride OR potassium chloride sodium chloride sodium chloride sodium chloride sodium chloride 0.9 % Allergies: Patient has no known allergies. Code Status: Full Code Labs Recent Results (from the past 24 hour(s)) Anti XA unfractionated heparin Collection Time: 10/21/23 1:33 PM Result Value Ref Range Heparin anti-xa, unfractionated 1.24 (HH) 0.30 - 0.70 IU/mL Bedside Glucose *Place/Obtain serum glucose if >500(>600 MRH) per glucometer. Collection Time: 10/21/23 5:13 PM Result Value Ref Range Bedside glucose 123 (H) 65 - 99 mg/dL Bedside Glucose *Place/Obtain serum glucose if >500(>600 [facility]) per glucometer. Collection Time: 10/21/23 8:34 PM Result Value Ref Range Bedside glucose 115 (H) 65 - 99 mg/dL Anti XA unfractionated heparin Collection Time: 10/21/23 9:47 PM Result Value Ref Range Heparin anti-xa, unfractionated 1.33 (HH) 0.30 - 0.70 IU/mL Comprehensive metabolic panel Collection Time: 10/22/23 5:31 AM Result Value Ref Range Sodium 139 134 - 146 mmol/L Potassium, Bld 3.8 3.5 - 5.0 mmol/L Chloride 103 98 - 109 mmol/L CO2 26 22 - 32 mmol/L Anion gap 10 5 - 15 mmol/L BUN 12 5 - 27 mg/dL Creatinine 1.13 0.70 - 1.20 mg/dL Glucose 96 65 - 99 mg/dL Calcium 8.7 8.5 - 10.5 mg/dL Total Protein 6.8 6.0 - 8.0 g/dL Albumin 3.0 (L) 3.2 - 5.3 g/dL Alkaline Phosphatase 110 39 - 130 U/L AST 29 0 - 41 U/L ALT 23 0 - 40 U/L Total bilirubin 0.7 0.3 - 1.2 mg/dL eGFR (CKD-EPI)non-race dependent 68 >59 ml/min/1.73sq.m Magnesium Collection Time: 10/22/23 5:31 AM Result Value Ref Range Magnesium 2.3 1.8 - 2.6 mg/dL CBC auto differential Collection Time: 10/22/23 5:31 AM Result Value Ref Range White Blood Cells 7.5 4.0 - 11.0 X10E9/L RBC count 2.47 (L) 4.10 - 5.70 X10E12/L Hemoglobin 8.0 (L) 13.0 - 17.0 g/dL Hematocrit 24.3 (L) 39 - 49 % MCV 98 80 - 100 fL MCH 32.5 27 - 34 pg MCHC 33.1 32 - 36 g/dL RDW 17.8 (H) 11.5 - 15.0 % Platelets 158 150 - 450 X10E9/L MPV 9.7 7 - 12 fL % neutrophils 61.7 % % lymphocytes 24.3 % % monocytes 6.2 % % eosinophils 6.5 % % Basophils 1.3 % Neutrophils Absolute (A) 4.6 1.5 - 6.6 X10E9/L Lymphocytes Absolute 1.8 1.0 - 3.5 X10E9/L Monocytes Absolute 0.5 0 - 0.9 X10E9/L Eosinophils Absolute 0.5 (H) 0.0 - 0.4 X10E9/L Basophils Absolute 0.1 0.0 - 0.2 X10E9/L Anti XA unfractionated heparin Collection Time: 10/22/23 5:31 AM Result Value Ref Range Heparin anti-xa, unfractionated 1.29 (HH) 0.30 - 0.70 IU/mL Bedside Glucose *Place/Obtain serum glucose if >500(>600 MRH) per glucometer. Collection Time: 10/22/23 8:40 AM Result Value Ref Range Bedside glucose 96 65 - 99 mg/dL Radiology No results found. HOSPITAL PROBLEM LIST Principal Problem: T12 compression fracture [place] Active Problems: Benign essential hypertension Chronic diastolic congestive heart failure [place] COPD (chronic obstructive pulmonary disease) [place] Dyslipidemia Type 2 diabetes mellitus with hyperglycemia, without long-term current use of insulin ([facility] ASSESSMENT & PLAN T12 compression fracture Orthopedic input appreciated Plan for kyphoplasty 10/22/2023 Echo- systolic function is normal with an EF of 60-65% Cardiology cleared patient at high-risk, no absolute cardiac contraindications for this planned surgery Pain control- PRN's Chronic diastolic congestive heart failure/COPD/shortness of breath BNP 104 D-dimer 4961 Perfusion scan showing large perfusion deficit involving majority of left lung, intermediate probability of pulmonary embolism Pulmonology input appreciated Heparin drip continues Plans to start Eliquis after kyphoplasty Benign essential hypertension Toprol-XL 25 mg daily Type 2 diabetes Short-acting sliding scale coverage Dyslipidemia Atorvastatin 20 mg nightly Magaly Brown, PER DIEM PHYSICAL THERAPIST ASSISTANT-RN REFERRAL 10/22/2023 12:16 PM [facility] 7AM-7PM (all facilities): EpicChat or page through Vocera. 7PM-7AM ([facility], [facility]): EpicChat or page, [phone]. 7PM-7AM ([facility], [place], [place] and [facility] Rehab): EpicChat or page through Smart[employer]. Magaly Brown, PER DIEM PHYSICAL THERAPIST ASSISTANT-RN REFERRAL 10/22/23 5683 Physician Attestation I, Julia Man MD, personally performed a face to face diagnostic evaluation on this patient. I have reviewed the note authored by the advance practice provider including history, review of systems,physical examination,medical decision making and agree with the assessment and plan as written. I have seen and evaluated the patient, I have repeated the benoit portions of the physical exam and concur with the RASHAUN findings. I have reviewed all laboratory findings and imaging reports/films. I agree with the plan as noted. * Randall Martni MD - 10/22/2023 11:51 AM EDT Images from the original note were not included. Pulmonary Progress Note Patient - Brian Mandel Age - 73 y.o. - 1950 [facility] # - [id number] Date of Admission - 10/20/2023 8:14 AM Consulting Service/Physician Consulting: Consulting Providers Provider Service Specialty Timmy Acosta DO -- Orthopedic Surgery MD Ollie Ríos Pulmonology Pulmonary Medicine Matt Montemayor MD Cardiology Cardiology Primary Care Physician: Melanie Taylor DO REASON FOR VISIT: PE, COPD, chronic hypoxic respiratory failure REVIEW OF SYMPTOMS: Cough - no chest pain- no Shortness of breath - baseline fever - no Hemoptysis- no Sinus drainage, sore throat - no Abdominal pain - no Nausea, vomiting - no Diarrhea, constipation - no Swelling feet- no Rashes- no Headache - no Events since last visit : None Past Medical History: Past Medical History: Diagnosis Date Acute coronary syndrome [place] Anxiety disorder Chronic back pain Chronic obstructive asthma with exacerbation [place]) COPD (chronic obstructive pulmonary disease) [place] Diabetes mellitus type 2, controlled ([facility] Essential hypertension Folate deficiency anemia Heart failure ([facility]) Megaloblastic anemia VT (myocardial infarction) ([facility] 06/2023 Muscle weakness (generalized) Myocardial infarct ([facility] Obesity Obstructive sleep apnea SARAH (obstructive sleep apnea) Pancytopenia ([facility] Presence of coronary artery bypass graft stent Shock ([facility]) 10/05/2023 Supplemental oxygen dependent , Past Surgical History: Procedure Laterality Date CARDIAC SURGERY X2 Social History: Social History Socioeconomic History Marital status: Spouse name: Not on file Number of children: Not on file Years of education: Not on file Highest education level: Not on file Occupational History Not on file Tobacco Use Smoking status: Never Smokeless tobacco: Never Vaping Use Vaping status: Never Used Substance and Sexual Activity Alcohol use: Not Currently Comment: last drink 2003 Drug use: Never Sexual activity: Defer Other Topics Concern Not on file Social History Narrative Not on file Social Determinants of Health Financial Resource Strain: Low Risk (07/23/2023) Overall Financial Resource Strain (CARDIA) Difficulty of Paying Living Expenses: Not hard at all Food Insecurity: No Food Insecurity (10/20/2023) Hunger Screening Food Insecurity - Worry: Never True Food Insecurity - Inability: Never True Transportation Needs: No Transportation Needs (10/20/2023) PRAPARE - Transportation Lack of Transportation (Medical): No Lack of Transportation (Non-Medical): No Physical Activity: Insufficiently Active (07/23/2023) Exercise Vital Sign Days of Exercise per Week: 2 days Minutes of Exercise per Session: 10 min Stress: Stress Concern Present (07/23/2023) [employer] [place] [employer] - Occupational Stress Questionnaire Feeling of Stress : Very much Social Connections: Socially Isolated (07/23/2023) Social Connection and Isolation Panel [NHANES] Frequency of Communication with Friends and Family: Three times a week Frequency of Social Gatherings with Friends and Family: Three times a week Attends Confucianist Services: Never Active Member of Clubs or Organizations: No Attends Club or Organization Meetings: Never Marital Status: Interpersonal Safety: Not At Risk (10/20/2023) Humiliation, Afraid, Rape, and Kick questionnaire Fear of Current or Ex-Partner: No Emotionally Abused: No Physically Abused: No Sexually Abused: No Housing Instability: Low Risk (10/20/2023) Housing Instability Housing Instability: No SUBJECTIVE VITALS height is 152.4 cm (5') and weight is 94.6 kg (208 lb 8.9 oz). His oral temperature is 36.4 C (97.5F). His blood pressure is 101/48 and his pulse is 55. His respiration is 16 and oxygen saturation is 99%. Temperature Range: Temp (24hrs), Av.5 C (97.7 F), Min:36.4 C (97.5 F), Max:36.7 C (98.1 F) BP Range: Systolic (24hrs), Av , Min:98 , Max:108 Pulse Range: Pulse Av.9 Min: 55 Max: 77 Respiration Range: Resp Av.2 Min: 14 Max: 26 Current Pulse Ox: Temp: 36.4 C (97.5 F) 24HR Pulse Ox Range: Temp Av.6 C (97.8 F) Min: 36.3 C (97.4 F) Max: 37 C (98.6 F) Oxygen Amount and Delivery: O2 Device: Nasal cannula O2 Flow Rate (L/min): 2 L/min Wt Readings from Last 3 Encounters: 10/22/23 94.6 kg (208 lb 8.9 oz) 10/12/23 105.6 kg (232 lb 12.9 oz) 10/04/23 106.1 kg (234 lb) I/O (24 Hours) Intake/Output Summary (Last 24 hours) at 10/22/2023 1151 Last data filed at 10/22/2023 0708 Gross per 24 hour Intake 1021.62 ml Output 450 ml Net 571.62 ml Exam General Appearance - Awake, alert, in no acute distress, 2 l nc HEENT - normocephalic, atraumatic. Neck - Supple, trachea midline Lungs - Fair air entry bilaterally, breath sounds vesicular, no rhonchi, no rales or crackles Cardiovascular - Heart sounds are normal. Regular rate and rhythm. Abdomen - soft, nontender, nondistended, no masses or organomegaly Neurologic - There are no focal motor or sensory deficits Skin - no bruising or bleeding Extremities - no cyanosis, clubbing or edema Meds Current Facility-Administered Medications: acetaminophen (TYLENOL) tablet 650 mg, 650 mg, oral, Q4H PRN, Deanna Hendrickson APRN-RN REFERRAL atorvastatin (LIPITOR) tablet 20 mg, 20 mg, oral, Nightly, Asha Cobian APRN- SHERIDAN, 20 mg at 232 dextrose (GLUTOSE) 40 % gel 15 g, 15 g, oral, PRN, APRIL Lee dextrose 50 % in water (D50W) 50% solution 25 mL, 25 mL, intravenous, PRN, APRIL Lee famotidine (PF) (PEPCID) injection 20 mg, 20 mg, intravenous, Q24H, APRIL Torrez, 20 mg at 10/21/23 2232 glucagon HCL injection 1 mg, 1 mg, intramuscular, PRN, APRIL Lee heparin (porcine) injection 5,000 Units, 5,000 Units, intravenous, PRN, Randall Martin MD heparin infusion 01121 units/500 mL in 0.45% NaCl (50 units/mL premix), 300- 3,500 Units/hr, intravenous, Continuous, Randall Martin MD, Last Rate: 23 mL/hr at 10/22/23 0932, 1,150 Units/hr at 932 HYDROcodone-acetaminophen (NORCO) 5-325 mg per tablet 1 tablet, 1 tablet, oral, Q6H PRN, APRIL Torrez, 1 tablet at 10/22/23 1102 insulin lispro (HumaLOG) injection 2-10 Units, 2-10 Units, subcutaneous, TID with meals, APRIL Lee, 2 Units at 10/20/23 1844 insulin lispro (HumaLOG) injection 2-8 Units, 2-8 Units, subcutaneous, Nightly, APRIL Lee magnesium sulfate IVPB 2000 mg/50 mL in iso-osmotic water (40 mg/mL premix), 2,000 mg, intravenous,PRN, APRIL Lee magnesium sulfate IVPB 4000 mg/100 mL in iso-osmotic water (40 mg/mL premix), 4,000 mg, intravenous, PRN, APRIL Lee, Stopped at 10/20/23 1319 metoprolol succinate XL (TOPROL XL) 24 hr tablet 25 mg, 25 mg, oral, Daily, APRIL Preston, 25 mg at 10/22/23 1102 ondansetron (PF) (ZOFRAN) injection 4 mg, 4 mg, intravenous, Q8H PRN, APRIL Lee perflutren lipid microspheres (DEFINITY) dilution injection 1.43 mg/10 mL, 2 mL, intravenous, PRN, Randall Martin MD potassium chloride (K-TAB,KLOR-CON) CR tablet 30-40 mEq, 30-40 mEq, oral, PRN, 30 mEq at 10/22/23 1102 OR potassium chloride (KAYCIEL) 20 mEq/15 mL solution 30-40 mEq, 30-40 mEq, oral, PRN, APRIL Bravo sodium chloride 0.9 % flush 10 mL, 10 mL, intravenous, Once PRN, Randall Martin MD sodium chloride 0.9 % flush 3 mL, 3 mL, intravenous, PRN, Deanna Hendrickson APRN-SHERIDAN sodium chloride 0.9 % flush 3 mL, 3 mL, intravenous, Q12H LYNN, APRIL Lee, 3 mL at 10/22/23 1103 sodium chloride 0.9 % flush bag, 25 mL, intravenous, PRN, Deanna Hendrickson APRN-SHERIDAN sodium chloride 0.9 % infusion, 20 mL/hr, intravenous, Continuous PRN, APRIL Lee ticagrelor (BRILINTA) tablet 90 mg, 90 mg, oral, Q12H LYNN, Cindy Cisneros APRN-RN REFERRAL, 90 mg at 10/22/23 1102 ALLERGIES: No Known Allergies Results from last 3 days Lab Units 10/22/23 0531 10/21/23 0649 10/20/23 2026 10/20/23 1447 10/20/23 1004 10/20/23 0140 BUN mg/dL 12 18 -- -- -- 20 CREATININE mg/dL 1.13 1.34* -- -- -- 1.70* POTASSIUM mmol/L 3.8 4.2 3.5 3.1* -- 3.0* CO2 mmol/L 26 28 -- -- -- 27 CHLORIDE mmol/L 103 103 -- -- -- 95* MAGNESIUM mg/dL 2.3 2.5 2.6 -- 1.2* -- AST U/L -- -- -- 42* ALT U/L 23 22 -- -- -- 28 ALK PHOS U/L 110 101 -- -- -- 105 LIPASE U/L -- -- -- -- -- 61* Results from last 3 days Lab Units 10/20/23 1628 INR 1.2* PROTIME sec 13.4* Results from last 3 days Lab Units 10/22/23 0531 10/21/23 0649 10/20/23 1628 10/20/23 0140 WBC X10E9/L 7.5 7.5 -- 11.0 HEMOGLOBIN g/dL 8.0* 8.3* 8.8* 8.9* HEMATOCRIT % 24.3* 24.6* -- 26.4* PLATELETS X10E9/L 158 175 176 204 MCV fL 98 97 -- 97 MCH pg 32.5 32.7 -- 32.7 MCHC g/dL 33.1 33.8 -- 33.8 RDW % 17.8* 17.6* -- 17.7* EOS ABS AUTO X10E9/L 0.5* 0.4 -- 0.1 Microbiology Results No results found for the last 168 hours. Glucose Results from last 7 days Lab Units 10/22/23 0840 10/22/23 0531 10/21/23 2034 10/21/23 1713 10/21/23 1208 10/21/23 0819 10/21/23 0649 10/20/23 2124 10/20/23 1650 10/20/23 1059 10/20/23 0140 BEDSIDE GLUCOSE mg/dL 96 -- 115* 123* 103* 108* -- 152* 153* 107* -- GLUCOSE mg/dL -- 96 -- -- -- -- 109* -- -- -- 130* I/O last 3 completed shifts: In: - Out: 650 [Urine:650] Microbiology Results No results found for the last 168 hours. Lines/Drains Peripheral IV 10/20/23 Left Antecubital (Active) Line Status Infusing 10/21/23 0849 Site Assessment Clean;Dry;Intact 10/21/23848 Dressing Type Occlusive;Transparent 10/21/23848 Dressing Status Dry;Intact;Clean 10/21/23 08 Dressing Intervention Initial dressing 10/20/23143 Specimen Obtained Yes 10/20/23143 Specimen Status Sent for analysis 10/20/23143 Amount Drawn (mL) 10 mL 10/20/23143 Dressing Change Due (Non-Gauze) 10/27/23 10/20/23143 Echo limited W/O contrast Result Date: 10/21/2023 Left Ventricle: Systolic function is normal with an ejection fraction of 60-65%. The quantitative EF by 2D Hutchinson biplane is 63%. No obvious regional wall motion abnormalities. Pericardium: There isno pericardial effusion. CT Ion Chest without contrast Result Date: 10/20/2023 History: Respiratory illness, nondiagnostic xray Exam/Technique: Serial axial CT images of the chest were obtained without IV dye. All CT scans at this facility use dose modulation, iterative reconstruction, and/or weight based dosing when appropriate to reduce radiation dose to as low as reasonably achievable. Automated exposure control was utilized. Computer aided detection for pulmonary nodules?was performed utilizing [employer] software.? Comparison: 10/04/2023 Findings: Neck base is grossly unremarkable.. Midline sternotomy wires are grossly intact. There is no gross soft tissue abnormality at the surgical bed there are cardiac surgical changes with no significant cardiomegaly or pericard ial effusion. There are severe coronary artery calcifications. There is moderate degree of diffuse atherosclerotic disease and calcified intimal plaque throughout thoracic aorta with maximum transverse diameter of 3.9 cm of the ascending segment. There is no pathological mediastinal lymphadenopathyby size criteria. There is small left-sided pleural effusion with left lower lobe alveolar opacity possibly atelectasis versus consolidation. Findings are less prominent compared to prior exam. Thereare central groundglass opacities throughout both lungs raising concern for pulmonary edema or interstitial pneumonia. There is 6 mm right lower lobe pulmonary nodule. This is best identified at axial image #111 series 2. A non-calcified 6 mm solid nodule in the right lower lobe is indeterminate. There is moderate fatty infiltration of the pancreas. There is heterogeneous and irregular hepatic contour. Underlying liver cirrhosis cannot be excluded. Spleen and adrenal glands are unremarkable. There are few calcified nonobstructing bilateral renal stones with average diameter of 2 to 3 mm. IMPRESSION: There is interval decrease in the degree of left-sided pleural effusion and left alveolar opacity possibly atelectasis versus consolidation. There is interval development of central bilateral g roundglass opacity raising concern for pulmonary edema or interstitial pneumonia. Indeterminate solid pulmonary nodule measuring 6 mm. In a patient of unknown risk level with a solid nodule of 6-8 mm, recommend CT at 6-12 months. In a low-risk patient, then consider CT at 18-24 months. In a high-risk patient, if the nodule is stable at 6-12 months, recommend CT at 18-24 months. Seymour Garcia et al.Guidelines for Management of Incidental Pulmonary Nodules Detected on CT Images: From the Fleischner Society 2017. Radiology. 2017 Aug;284(1):228-243. Finalized by Elizabeth Pfeiffer MD on 10/20/2023 7:12 PM Vas venous duplex lwr bilateral Result Date: 10/20/2023 Right: Common femoral, femoral, popliteal and deep calf muscle veins are compressible without intraluminal content. Spontaneous, phasic common femoral, femoral and popliteal spectral Doppler signals.Compressible thigh superficial Great saphenous vein. Left: Common femoral, femoral, popliteal and deep calf muscle veins are compressible without intraluminal content. Spontaneous, phasic common femoral, femoral and popliteal spectral Doppler signals. Absent Great saphenous superficial vein in the thigh. General: In-patient, bedside examination. Conclusions: RIGHT: NO EVIDENCE of deep or superficial vein thrombosis of the lower extremity.LEFT: The great saphenous vein is not visualized or surgically absent in the thigh. NO EVIDENCE of deep or superficial vein thrombosis of the lower extremity. Recommendations: Any questions prior to finalization, please call the reading physician during normal business hours at the phone number beside their name. NM pulmonary perfusion scan Result Date: 10/20/2023 PERFUSION LUNG SCAN COMPARISON: None. CORRELATION: Chest radiograph 10/20/2023 HISTORY: Chest pain, shortness breath. TECHNIQUE: 5.6 mCi technetium 99m MAA injected intravenously without reported complication. Planar images of the lungs obtained in multiple projections for both ventilation and perfusion. FINDINGS: Normal heterogeneous uptake seen within the right lung. Large perfusion defect involving a majority of the left mid/lower lung. Of note, patient has evidence of moderate left pleural effusion on prior chest x-ray which may be causing significant compressive atelectasis IMPRESSION: * Large perfusion defect involving majority of the left mid/lower lung with underlying pleural effusion on the chest radiograph.. * Intermediate probability for pulmonary embolism. * A central or hilar obstructing lesion to the left lower lobe cannot be excluded in the setting. * Ventilation imaging was not performed. Approved by Resident Pavan Durbin DO on 10/20/2023 2:00 PM Kye Marcial MD have personally reviewed the image(s) and agree with and/or edited the report Finalized by Kye Kapadia MD on 10/20/2023 2:20 PM X-ray chest 1 view Result Date: 10/20/2023 XR CHEST 1 VW HISTORY: Shortness of breath COMPARISON: 10/11/2023 FINDINGS: Interval removal of leftneck catheter. Prior median sternotomy. Left shoulder tenodesis. Small left pleural effusion and left lower lobe airspace opacification does not appear significantly changed across multiple prior exam inations. Cardiac mediastinal silhouette appears stable and within normal limits given portable technique. IMPRESSION: * No significant interval change other than left IJ central venous catheter having been removed.. Approved by Resident: Agustin Flores MD on 10/20/2023 2:12 AM Shiv Marcial MD have personally reviewed the image(s) and agree with and/or edited the report Finalized by Shiv Pinzon MD on 10/20/2023 2:17 AM X-ray spine lumbar 2 or 3 views Result Date: 10/20/2023 Clinical history: Status post fall, back pain. Comparisons: None Findings: AP and lateral lumbar spine radiographs obtained. 5 lumbar-like vertebral bodies are present in normal alignment. There is an anterior wedge compression fracture at T12 which was not present on a CT chest 10/04/2023. The other vertebral body heights are preserved. Some changes of degenerative disc disease are present at L5-S1. No malalignment. Left lower pole renal calculi are present. Bifurcated abdominal aortic endograft and vascular calculations are present. IMPRESSION: 1. Anterior wedge compression fracture T12, newwhen compared with CT scan 10/04/2023. 2. Degenerative disc disease L5-S1. Finalized by Shiv Pinzon MD on 10/20/2023 2:15 AM Echo limited W/ contrast Result Date: 09/08/2023 Left Ventricle: Left ventricle appears normal in size. Wall thickness is normal. Systolic function is normal with an ejection fraction of 55-60%. See wall score diagram for wall motion abnormalities.Pericardium: There is pleural effusion. The study had technical difficulties. The study was difficult due to patient's body habitus and poor acoustic windows. Echo complete W/ contrast Result Date: 07/27/2023 Left Ventricle: Left ventricle appears normal in size. Systolic function is normal with an ejectionfraction of 55-60%. Right Ventricle: Systolic function is mildly reduced. Abnormal tricuspid annular plane systolic excursion. Aortic Valve: There is moderate to severe regurgitation. There is moderate to severe stenosis. The calculated aortic valve area is 0.59 cm2. The calculated aortic valve peak gradient is 68.00 mmHg. The calculated aortic valve mean gradient is 36.00 mmHg. Tricuspid Valve: There is mild to moderate regurgitation. There is no evidence of tricuspid valve stenosis. ASSESSMENT / PLAN: PE - high prob VQ scan - s Heparin gtt Cardiac echo - EF 63%, no RV failure Chronic hypoxic resp failure- baseline O2 2L Hx SARHA T12 Fx Ok to proceed with kyphoplasty Okay to start eliquis after kyphoplasty DW DR Man * Cornelius Harrell RPH - 10/21/2023 11:16 PM EDT Heparin High Intensity Infusion (Non-Cardio) Recheck Anti Xa @2147 resulted 1.33. Drip held @2247 for 30 mins per protocol and to be decreased by 100units/hr to 1250 u/hr when restarted. Next antiXa ~0530. BISHOP Villeda in understanding * Julia Man MD - 10/21/2023 12:58 PM EDT Images from the original note were not included. [facility] [id number] [place] [id number] Hospital Medicine Progress Note Patient: Brian Mandel Date of : 1950 Room: [address] [place] [address] PCP: Melanie Taylor DO Admission date: 10/20/2023 8:14 AM Encounter date: 10/21/23 Hospital Day: 2 SUBJECTIVE Chief complaints: No chief complaint on file. Interval History: Status: stable. No overnight events or new complaints. Patient remains on heparin drip. He denies any chest pain or shortness of breath at this time. Anticipating kyphoplasty tomorrow, 10/22/2023. Cardiology has cleared the patient at high-risk. Surgeon is comfortable doing kyphoplasty while on Brilinta and blood thinners. No leukocytosis, patient has remained afebrile. Review of Systems Constitutional: Negative for chills and fever. HENT: Negative for ear pain and sore throat. Eyes: Negative for pain and visual disturbance. Respiratory: Negative for cough and shortness of breath. Cardiovascular: Negative for chest pain and palpitations. Gastrointestinal: Negative for abdominal pain and vomiting. Genitourinary: Negative for dysuria and hematuria. Musculoskeletal: Positive for back pain. Negative for arthralgias. Skin: Negative for color change and rash. Neurological: Negative for seizures and syncope. All other systems reviewed and are negative. OBJECTIVE BP 98/42 Pulse 55 Temp 36.4 C (97.5 F) (Oral) Resp 18 Ht 152.4 cm (5') Wt 96.5 kg (212 lb11.9 oz) SpO2 100% BMI 41.55 kg/m Temp: [36.4 C (97.5 F)-36.8 C (98.2 F)] 36.4 C (97.5 F) Pulse: [55-77] 55 Resp: [16-20] 18 BP: (97-111)/(42-65) 98/42 SpO2: [96 %-100 %] 100 % O2 Device: Nasal cannula O2 Flow Rate (L/min): [2 L/min] 2 L/min Intake/Output Summary (Last 24 hours) at 10/21/2023 1258 Last data filed at 10/20/2023 1900 Gross per 24 hour Intake -- Output 400 ml Net -400 ml Physical Exam Constitutional: General: He is not in acute distress. Appearance: He is well-developed. HENT: Head: Normocephalic. Right Ear: External ear normal. Left Ear: External ear normal. Nose: Nose normal. Eyes: Conjunctiva/sclera: Conjunctivae normal. Pupils: Pupils are equal, round, and reactive to light. Cardiovascular: Rate and Rhythm: Normal rate and regular rhythm. Heart sounds: Normal heart sounds. No murmur heard. Pulmonary: Effort: Pulmonary effort is normal. Breath sounds: Normal breath sounds. No wheezing. Abdominal: General: Bowel sounds are normal. Palpations: Abdomen is soft. There is no mass. Tenderness: There is no abdominal tenderness. Musculoskeletal: General: Normal range of motion. Cervical back: Normal range of motion. Lymphadenopathy: Cervical: No cervical adenopathy. Skin: General: Skin is warm and dry. Findings: No rash. Neurological: Mental Status: He is alert. Cranial Nerves: No cranial nerve deficit. Coordination: Coordination normal. Psychiatric: Behavior: Behavior normal. Medications Scheduled: atorvastatin, 20 mg, oral, Nightly famotidine, 20 mg, intravenous, Q24H insulin lispro, 2-10 Units, subcutaneous, TID with meals insulin lispro, 2-8 Units, subcutaneous, Nightly metoprolol succinate XL, 25 mg, oral, Daily sodium chloride, 3 mL, intravenous, Q12H YLNN ticagrelor, 90 mg, oral, Q12H LYNN Infusions: heparin, 300-3,500 Units/hr, Last Rate: 1,450 Units/hr (10/21/23 1223) sodium chloride 0.9 %, 20 mL/hr As Needed: acetaminophen dextrose dextrose 50 % in water (D50W) glucagon (human recombinant) heparin (porcine) HYDROcodone-acetaminophen magnesium sulfate magnesium sulfate ondansetron potassium chloride OR potassium chloride sodium chloride sodium chloride sodium chloride 0.9 % Allergies: Patient has no known allergies. Code Status: Full Code Labs Recent Results (from the past 24 hour(s)) Troponin I, High Sensitivity 3 Hour Collection Time: 10/20/23 1:17 PM Result Value Ref Range 3 Hour Trop I, High Sensitivity 32 (H) <21 ng/L Potassium Collection Time: 10/20/23 2:47 PM Result Value Ref Range Potassium, Bld 3.1 (L) 3.5 - 5.0 mmol/L Hemoglobin Collection Time: 10/20/23 4:28 PM Result Value Ref Range Hemoglobin 8.8 (L) 13.0 - 17.0 g/dL Platelet count Collection Time: 10/20/23 4:28 PM Result Value Ref Range Platelets 176 150 - 450 X10E9/L MPV 9.7 7 - 12 fL APTT Collection Time: 10/20/23 4:28 PM Result Value Ref Range aPTT 42 (H) 26 - 37 sec Protime & INR Collection Time: 10/20/23 4:28 PM Result Value Ref Range Protime 13.4 (H) 9.8 - 13.2 sec Inr 1.2 (H) 0.8 - 1.1 Bedside Glucose *Place/Obtain serum glucose if >500(>600 MRH) per glucometer. Collection Time: 10/20/23 4:50 PM Result Value Ref Range Bedside glucose 153 (H) 65 - 99 mg/dL Magnesium Collection Time: 10/20/23 8:26 PM Result Value Ref Range Magnesium 2.6 1.8 - 2.6 mg/dL Potassium Collection Time: 10/20/23 8:26 PM Result Value Ref Range Potassium, Bld 3.5 3.5 - 5.0 mmol/L Bedside Glucose *Place/Obtain serum glucose if >500(>600 MRH) per glucometer. Collection Time: 10/20/23 9:24 PM Result Value Ref Range Bedside glucose 152 (H) 65 - 99 mg/dL Anti XA unfractionated heparin Collection Time: 10/20/23 11:09 PM Result Value Ref Range Heparin anti-xa, unfractionated 1.93 (HH) 0.30 - 0.70 IU/mL Comprehensive metabolic panel Collection Time: 10/21/23 6:49 AM Result Value Ref Range Sodium 139 134 - 146 mmol/L Potassium, Bld 4.2 3.5 - 5.0 mmol/L Chloride 103 98 - 109 mmol/L CO2 28 22 - 32 mmol/L Anion gap 8 5 - 15 mmol/L BUN 18 5 - 27 mg/dL Creatinine 1.34 (H) 0.70 - 1.20 mg/dL Glucose 109 (H) 65 - 99 mg/dL Calcium 9.1 8.5 - 10.5 mg/dL Total Protein 7.1 6.0 - 8.0 g/dL Albumin 3.2 3.2 - 5.3 g/dL Alkaline Phosphatase 101 39 - 130 U/L AST 31 0 - 41 U/L ALT 22 0 - 40 U/L Total bilirubin 1.0 0.3 - 1.2 mg/dL eGFR (CKD-EPI)non-race dependent 55 (L) >59 ml/min/1.73sq.m Magnesium Collection Time: 10/21/23 6:49 AM Result Value Ref Range Magnesium 2.5 1.8 - 2.6 mg/dL CBC auto differential Collection Time: 10/21/23 6:49 AM Result Value Ref Range White Blood Cells 7.5 4.0 - 11.0 X10E9/L RBC count 2.55 (L) 4.10 - 5.70 X10E12/L Hemoglobin 8.3 (L) 13.0 - 17.0 g/dL Hematocrit 24.6 (L) 39 - 49 % MCV 97 80 - 100 fL MCH 32.7 27 - 34 pg MCHC 33.8 32 - 36 g/dL RDW 17.6 (H) 11.5 - 15.0 % Platelets 175 150 - 450 X10E9/L MPV 9.7 7 - 12 fL % neutrophils 66.9 % % lymphocytes 21.7 % % monocytes 5.6 % % eosinophils 5.5 % % Basophils 0.3 % Neutrophils Absolute (A) 5.0 1.5 - 6.6 X10E9/L Lymphocytes Absolute 1.6 1.0 - 3.5 X10E9/L Monocytes Absolute 0.4 0 - 0.9 X10E9/L Eosinophils Absolute 0.4 0.0 - 0.4 X10E9/L Basophils Absolute 0.0 0.0 - 0.2 X10E9/L Anti XA unfractionated heparin Collection Time: 10/21/23 6:49 AM Result Value Ref Range Heparin anti-xa, unfractionated 0.70 0.30 - 0.70 IU/mL Bedside Glucose *Place/Obtain serum glucose if >500(>600 MRH) per glucometer. Collection Time: 10/21/23 8:19 AM Result Value Ref Range Bedside glucose 108 (H) 65 - 99 mg/dL Bedside Glucose *Place/Obtain serum glucose if >500(>600 MRH) per glucometer. Collection Time: 10/21/23 12:08 PM Result Value Ref Range Bedside glucose 103 (H) 65 - 99 mg/dL Radiology CT Ion Chest without contrast Result Date: 10/20/2023 History: Respiratory illness, nondiagnostic xray Exam/Technique: Serial axial CT images of the chest were obtained without IV dye. All CT scans at this facility use dose modulation, iterative reconstruction, and/or weight based dosing when appropriate to reduce radiation dose to as low as reasonably achievable. Automated exposure control was utilized. Computer aided detection for pulmonary nodules?was performed utilizing [employer] software.? Comparison: 10/04/2023 Findings: Neck base is grossly unremarkable.. Midline sternotomy wires are grossly intact. There is no gross soft tissue abnormality at the surgical bed there are cardiac surgical changes with no significant cardiomegaly or pericard ial effusion. There are severe coronary artery calcifications. There is moderate degree of diffuse atherosclerotic disease and calcified intimal plaque throughout thoracic aorta with maximum transverse diameter of 3.9 cm of the ascending segment. There is no pathological mediastinal lymphadenopathyby size criteria. There is small left-sided pleural effusion with left lower lobe alveolar opacity possibly atelectasis versus consolidation. Findings are less prominent compared to prior exam. Thereare central groundglass opacities throughout both lungs raising concern for pulmonary edema or interstitial pneumonia. There is 6 mm right lower lobe pulmonary nodule. This is best identified at axial image #111 series 2. A non-calcified 6 mm solid nodule in the right lower lobe is indeterminate. There is moderate fatty infiltration of the pancreas. There is heterogeneous and irregular hepatic contour. Underlying liver cirrhosis cannot be excluded. Spleen and adrenal glands are unremarkable. There are few calcified nonobstructing bilateral renal stones with average diameter of 2 to 3 mm. IMPRESSION: There is interval decrease in the degree of left-sided pleural effusion and left alveolar opacity possibly atelectasis versus consolidation. There is interval development of central bilateral g roundglass opacity raising concern for pulmonary edema or interstitial pneumonia. Indeterminate solid pulmonary nodule measuring 6 mm. In a patient of unknown risk level with a solid nodule of 6-8 mm, recommend CT at 6-12 months. In a low-risk patient, then consider CT at 18-24 months. In a high-risk patient, if the nodule is stable at 6-12 months, recommend CT at 18-24 months. Seymour Garcia, et al.Guidelines for Management of Incidental Pulmonary Nodules Detected on CT Images: From the Fleischner Society 2017. Radiology. 2017 Umesh;284(1):228-243. Finalized by Elizabeth Pfeiffer MD on 10/20/2023 7:12 PM Vas venous duplex lwr bilateral Result Date: 10/20/2023 Right: Common femoral, femoral, popliteal and deep calf muscle veins are compressible without intraluminal content. Spontaneous, phasic common femoral, femoral and popliteal spectral Doppler signals.Compressible thigh superficial Great saphenous vein. Left: Common femoral, femoral, popliteal and deep calf muscle veins are compressible without intraluminal content. Spontaneous, phasic common femoral, femoral and popliteal spectral Doppler signals. Absent Great saphenous superficial vein in the thigh. General: In-patient, bedside examination. Conclusions: RIGHT: NO EVIDENCE of deep or superficial vein thrombosis of the lower extremity.LEFT: The great saphenous vein is not visualized or surgically absent in the thigh. NO EVIDENCE of deep or superficial vein thrombosis of the lower extremity. Recommendations: Any questions prior to finalization, please call the reading physician during normal business hours at the phone number beside their name. NM pulmonary perfusion scan Result Date: 10/20/2023 PERFUSION LUNG SCAN COMPARISON: None. CORRELATION: Chest radiograph 10/20/2023 HISTORY: Chest pain, shortness breath. TECHNIQUE: 5.6 mCi technetium 99m MAA injected intravenously without reported complication. Planar images of the lungs obtained in multiple projections for both ventilation and perfusion. FINDINGS: Normal heterogeneous uptake seen within the right lung. Large perfusion defect involving a majority of the left mid/lower lung. Of note, patient has evidence of moderate left pleural effusion on prior chest x-ray which may be causing significant compressive atelectasis IMPRESSION: * Large perfusion defect involving majority of the left mid/lower lung with underlying pleural effusion on the chest radiograph.. * Intermediate probability for pulmonary embolism. * A central or hilar obstructing lesion to the left lower lobe cannot be excluded in the setting. * Ventilation imaging was not performed. Approved by Resident Pavan Durbin DO on 10/20/2023 2:00 PM Kye Marcial MD have personally reviewed the image(s) and agree with and/or edited the report Fi nalized by Kye Kapadia MD on 10/20/2023 2:20 PM HOSPITAL PROBLEM LIST Principal Problem: T12 compression fracture [place] Active Problems: Benign essential hypertension Chronic diastolic congestive heart failure ([facility]) COPD (chronic obstructive pulmonary disease) [place] Dyslipidemia Type 2 diabetes mellitus with hyperglycemia, without long-term current use of insulin ([facility] ASSESSMENT & PLAN T12 compression fracture Orthopedic input appreciated Plan for kyphoplasty 10/22/2023 Echo- systolic function is normal with an EF of 60-65% Cardiology cleared patient at high-risk, no absolute cardiac contraindications for this planned surgery Pain control- PRN's Chronic diastolic congestive heart failure/COPD/shortness of breath BNP 104 D-dimer 4961 Perfusion scan showing large perfusion deficit involving majority of left lung, intermediate probability of pulmonary embolism Pulmonology input appreciated Heparin drip continues Plans to start Eliquis after kyphoplasty Benign essential hypertension Blood pressure 98/42 Toprol-XL 25 mg daily Type 2 diabetes Blood sugar 130 Short-acting sliding scale coverage Dyslipidemia Atorvastatin 20 mg nightly APRIL Torrez 10/21/2023 12:58 PM [facility] Internal Medicine 7AM-7PM (all facilities): EpicChat or page through [employer]. 7PM-7AM ([facility], [facility]): EpicChat or page, [phone]. 7PM-7AM ([place], [place], [place], [place] and [facility] Rehab): EpicChat or page through [employer]. APRIL Torrez 10/21/23 1710 Physician Attestation I, Julia Man MD, personally performed a face to face diagnostic evaluation on this patient. I have reviewed the note authored by the advance practice provider including history, review of systems,physical examination,medical decision making and agree with the assessment and plan as written. I have seen and evaluated the patient, I have repeated the benoit portions of the physical exam and concur with the RASHAUN findings. I have reviewed all laboratory findings and imaging reports/films. I agree with the plan as noted. * Randall Martin MD - 10/21/2023 12:04 PM EDT Images from the original note were not included. Pulmonary Progress Note Patient - Brian Mandel Age - 73 y.o. - 1950 [facility] # - [id number] Date of Admission - 10/20/2023 8:14 AM Consulting Service/Physician Consulting: Consulting Providers Provider Service Specialty Timmy Acosta DO -- Orthopedic Surgery MD Ollie Ríos Pulmonology Pulmonary Medicine Matt Montemayor MD Cardiology Cardiology Primary Care Physician: Melanie Taylor DO REASON FOR VISIT: PE, COPD, chronic hypoxic respiratory failure REVIEW OF SYMPTOMS: Cough - no chest pain- no Shortness of breath - baseline fever - no Hemoptysis- no Sinus drainage, sore throat - no Abdominal pain - no Nausea, vomiting - no Diarrhea, constipation - no Swelling feet- no Rashes- no Headache - no Events since last visit : None Past Medical History: Past Medical History: Diagnosis Date Acute coronary syndrome [place] Anxiety disorder Chronic back pain Chronic obstructive asthma with exacerbation [place] COPD (chronic obstructive pulmonary disease) ([facility] Diabetes mellitus type 2, controlled ([facility] Essential hypertension Folate deficiency anemia Heart failure ([facility]) Megaloblastic anemia VT (myocardial infarction) ([facility]) 06/2023 Muscle weakness (generalized) Myocardial infarct ([facility] Obesity Obstructive sleep apnea SARAH (obstructive sleep apnea) Pancytopenia ([facility] Presence of coronary artery bypass graft stent Shock ([facility]) 10/05/2023 Supplemental oxygen dependent , Past Surgical History: Procedure Laterality Date CARDIAC SURGERY X2 Social History: Social History Socioeconomic History Marital status: Spouse name: Not on file Number of children: Not on file Years of education: Not on file Highest education level: Not on file Occupational History Not on file Tobacco Use Smoking status: Never Smokeless tobacco: Never Vaping Use Vaping status: Never Used Substance and Sexual Activity Alcohol use: Not Currently Comment: last drink 2003 Drug use: Never Sexual activity: Defer Other Topics Concern Not on file Social History Narrative Not on file Social Determinants of Health Financial Resource Strain: Low Risk (07/23/2023) Overall Financial Resource Strain (CARDIA) Difficulty of Paying Living Expenses: Not hard at all Food Insecurity: No Food Insecurity (10/20/2023) Hunger Screening Food Insecurity - Worry: Never True Food Insecurity - Inability: Never True Transportation Needs: No Transportation Needs (10/20/2023) PRAPARE - Transportation Lack of Transportation (Medical): No Lack of Transportation (Non-Medical): No Physical Activity: Insufficiently Active (07/23/2023) Exercise Vital Sign Days of Exercise per Week: 2 days Minutes of Exercise per Session: 10 min Stress: Stress Concern Present (07/23/2023) [employer] [place] [employer] - Occupational Stress Questionnaire Feeling of Stress : Very much Social Connections: Socially Isolated (07/23/2023) Social Connection and Isolation Panel [NHANES] Frequency of Communication with Friends and Family: Three times a week Frequency of Social Gatherings with Friends and Family: Three times a week Attends Confucianist Services: Never Active Member of Clubs or Organizations: No Attends Club or Organization Meetings: Never Marital Status: Interpersonal Safety: Not At Risk (10/20/2023) Humiliation, Afraid, Rape, and Kick questionnaire Fear of Current or Ex-Partner: No Emotionally Abused: No Physically Abused: No Sexually Abused: No Housing Instability: Low Risk (10/20/2023) Housing Instability Housing Instability: No SUBJECTIVE VITALS height is 152.4 cm (5') and weight is 96.5 kg (212 lb 11.9 oz). His oral temperature is 36.6 C (97.8 F). His blood pressure is 97/42 and his pulse is 77. His respiration is 16 and oxygen saturation is 96%. Temperature Range: Temp (24hrs), Av.6 C (97.9 F), Min:36.4 C (97.6 F), Max:36.8 C (98.2 F) BP Range: Systolic (24hrs), Av , Min:97 , Max:111 Pulse Range: Pulse Av.6 Min: 58 Max: 77 Respiration Range: Resp Av.6 Min: 14 Max: 26 Current Pulse Ox: Temp: 36.6 C (97.8 F) 24HR Pulse Ox Range: Temp Av.6 C (97.9 F) Min: 36.3 C (97.4 F) Max: 37 C (98.6 F) Oxygen Amount and Delivery: O2 Device: Nasal cannula O2 Flow Rate (L/min): 2 L/min Wt Readings from Last 3 Encounters: 10/21/23 96.5 kg (212 lb 11.9 oz) 10/12/23 105.6 kg (232 lb 12.9 oz) 10/04/23 106.1 kg (234 lb) I/O (24 Hours) Intake/Output Summary (Last 24 hours) at 10/21/2023 1204 Last data filed at 10/20/2023 1900 Gross per 24 hour Intake -- Output 400 ml Net -400 ml Exam General Appearance - Awake, alert, in no acute distress, 2 l nc HEENT - normocephalic, atraumatic. Neck - Supple, trachea midline Lungs - Fair air entry bilaterally, breath sounds vesicular, no rhonchi, no rales or crackles Cardiovascular - Heart sounds are normal. Regular rate and rhythm. Abdomen - soft, nontender, nondistended, no masses or organomegaly Neurologic - There are no focal motor or sensory deficits Skin - no bruising or bleeding Extremities - no cyanosis, clubbing or edema Meds Current Facility-Administered Medications: acetaminophen (TYLENOL) tablet 650 mg, 650 mg, oral, Q4H PRN, APRIL Lee atorvastatin (LIPITOR) tablet 20 mg, 20 mg, oral, Nightly, JOSE D Preston CNP, 20 mg at 146 dextrose (GLUTOSE) 40 % gel 15 g, 15 g, oral, PRN, APRIL Lee dextrose 50 % in water (D50W) 50% solution 25 mL, 25 mL, intravenous, PRN, APRIL Lee famotidine (PF) (PEPCID) injection 20 mg, 20 mg, intravenous, Q24H, APRIL Torrez, 20 mg at 10/20/23 2146 glucagon HCL injection 1 mg, 1 mg, intramuscular, PRN, APRIL Lee heparin (porcine) injection 5,000 Units, 5,000 Units, intravenous, PRN, Randall Martin MD heparin infusion 23300 units/500 mL in 0.45% NaCl (50 units/mL premix), 300- 3,500 Units/hr, intravenous, Continuous, Randall Martin MD, Last Rate: 29 mL/hr at 10/21/23 0127, 1,450 Units/hr at 127 HYDROcodone-acetaminophen (NORCO) 5-325 mg per tablet 1 tablet, 1 tablet, oral, Q6H PRN, Cindy Cisneros, APRIL, 1 tablet at 10/21/23 0850 insulin lispro (HumaLOG) injection 2-10 Units, 2-10 Units, subcutaneous, TID with meals, APRIL Lee, 2 Units at 10/20/23 1844 insulin lispro (HumaLOG) injection 2-8 Units, 2-8 Units, subcutaneous, Nightly, APRIL Lee magnesium sulfate IVPB 2000 mg/50 mL in iso-osmotic water (40 mg/mL premix), 2,000 mg, intravenous,PRN, APRIL Lee magnesium sulfate IVPB 4000 mg/100 mL in iso-osmotic water (40 mg/mL premix), 4,000 mg, intravenous, PRN, Deanna Hendrickson APRN-SHERIDAN, Stopped at 10/20/23 1618 metoprolol succinate XL (TOPROL XL) 24 hr tablet 25 mg, 25 mg, oral, Daily, APRIL Preston, 25 mg at 10/21/23 0849 ondansetron (PF) (ZOFRAN) injection 4 mg, 4 mg, intravenous, Q8H PRN, APRIL Lee potassium chloride (K-TAB,KLOR-CON) CR tablet 30-40 mEq, 30-40 mEq, oral, PRN, 40 mEq at 10/20/23 1620 OR potassium chloride (KAYCIEL) 20 mEq/15 mL solution 30-40 mEq, 30-40 mEq, oral, PRN, APRIL Bravo sodium chloride 0.9 % flush 3 mL, 3 mL, intravenous, PRN, Deanna Hendrickson APRN-SHERIDAN sodium chloride 0.9 % flush 3 mL, 3 mL, intravenous, Q12H LYNN, APRIL Lee, 3 mL at 10/20/23 2146 sodium chloride 0.9 % flush bag, 25 mL, intravenous, PRN, Deanna Hendrickson APRN-SHERIDAN sodium chloride 0.9 % infusion, 20 mL/hr, intravenous, Continuous PRN, APRIL Lee ticagrelor (BRILINTA) tablet 90 mg, 90 mg, oral, Q12H [facility], Cindy Cisneros, SPENCER-RN REFERRAL, 90 mg at 10/21/23 0850 ALLERGIES: No Known Allergies Results from last 3 days Lab Units 10/21/23 0649 10/20/236 10/20/23 1447 10/20/23 1004 10/20/23 0140 BUN mg/dL 18 -- -- -- 20 CREATININE mg/dL 1.34* -- -- -- 1.70* POTASSIUM mmol/L 4.2 3.5 3.1* -- 3.0* CO2 mmol/L 28 -- -- -- 27 CHLORIDE mmol/L 103 -- -- -- 95* MAGNESIUM mg/dL 2.5 2.6 -- 1.2* -- AST U/L 31 -- -- -- 42* ALT U/L 22 -- -- -- 28 ALK PHOS U/L 101 -- -- -- 105 LIPASE U/L -- -- -- -- 61* Results from last 3 days Lab Units 10/20/23 1628 INR 1.2* PROTIME sec 13.4* Results from last 3 days Lab Units 10/21/23 0649 10/20/23 1628 10/20/23 0140 WBC X10E9/L 7.5 -- 11.0 HEMOGLOBIN g/dL 8.3* 8.8* 8.9* HEMATOCRIT % 24.6* -- 26.4* PLATELETS X10E9/L 175 176 204 MCV fL 97 -- 97 MCH pg 32.7 -- 32.7 MCHC g/dL 33.8 -- 33.8 RDW % 17.6* -- 17.7* EOS ABS AUTO X10E9/L 0.4 -- 0.1 Microbiology Results No results found for the last 168 hours. Glucose Results from last 7 days Lab Units 10/21/23 0819 10/21/23 0649 10/20/23 2124 10/20/23 1650 10/20/23 1059 10/20/23 0140 BEDSIDE GLUCOSE mg/dL 108* -- 152* 153* 107* -- GLUCOSE mg/dL -- 109* -- -- -- 130* I/O last 3 completed shifts: In: - Out: 400 [Urine:400] Microbiology Results No results found for the last 168 hours. Lines/Drains Peripheral IV 10/20/23 Left Antecubital (Active) Line Status Infusing 10/21/23848 Site Assessment Clean;Dry;Intact 10/21/23848 Dressing Type Occlusive;Transparent 10/21/23848 Dressing Status Dry;Intact;Clean 10/21/23848 Dressing Intervention Initial dressing 10/20/23143 Specimen Obtained Yes 10/20/23143 Specimen Status Sent for analysis 10/20/23143 Amount Drawn (mL) 10 mL 10/20/23143 Dressing Change Due (Non-Gauze) 10/27/23 10/20/23143 CT Ion Chest without contrast Result Date: 10/20/2023 History: Respiratory illness, nondiagnostic xray Exam/Technique: Serial axial CT images of the chest were obtained without IV dye. All CT scans at this facility use dose modulation, iterative reconstruction, and/or weight based dosing when appropriate to reduce radiation dose to as low as reasonably achievable. Automated exposure control was utilized. Computer aided detection for pulmonary nodules?was performed utilizing [employer] software.? Comparison: 10/04/2023 Findings: Neck base is grossly unremarkable.. Midline sternotomy wires are grossly intact. There is no gross soft tissue abnormality at the surgical bed there are cardiac surgical changes with no significant cardiomegaly or pericard ial effusion. There are severe coronary artery calcifications. There is moderate degree of diffuse atherosclerotic disease and calcified intimal plaque throughout thoracic aorta with maximum transverse diameter of 3.9 cm of the ascending segment. There is no pathological mediastinal lymphadenopathyby size criteria. There is small left-sided pleural effusion with left lower lobe alveolar opacity possibly atelectasis versus consolidation. Findings are less prominent compared to prior exam. Thereare central groundglass opacities throughout both lungs raising concern for pulmonary edema or interstitial pneumonia. There is 6 mm right lower lobe pulmonary nodule. This is best identified at axial image #111 series 2. A non-calcified 6 mm solid nodule in the right lower lobe is indeterminate. There is moderate fatty infiltration of the pancreas. There is heterogeneous and irregular hepatic contour. Underlying liver cirrhosis cannot be excluded. Spleen and adrenal glands are unremarkable. There are few calcified nonobstructing bilateral renal stones with average diameter of 2 to 3 mm. IMPRESSION: There is interval decrease in the degree of left-sided pleural effusion and left alveolar opacity possibly atelectasis versus consolidation. There is interval development of central bilateral g roundglass opacity raising concern for pulmonary edema or interstitial pneumonia. Indeterminate solid pulmonary nodule measuring 6 mm. In a patient of unknown risk level with a solid nodule of 6-8 mm, recommend CT at 6-12 months. In a low-risk patient, then consider CT at 18-24 months. In a high-risk patient, if the nodule is stable at 6-12 months, recommend CT at 18-24 months. Seymour Garcia, et al.Guidelines for Management of Incidental Pulmonary Nodules Detected on CT Images: From the Fleischner Society 2017. Radiology. 2017 Umesh;284(1):228-243. Finalized by Elizabeth Pfeiffer MD on 10/20/2023 7:12 PM Vas venous duplex lwr bilateral Result Date: 10/20/2023 Right: Common femoral, femoral, popliteal and deep calf muscle veins are compressible without intraluminal content. Spontaneous, phasic common femoral, femoral and popliteal spectral Doppler signals.Compressible thigh superficial Great saphenous vein. Left: Common femoral, femoral, popliteal and deep calf muscle veins are compressible without intraluminal content. Spontaneous, phasic common femoral, femoral and popliteal spectral Doppler signals. Absent Great saphenous superficial vein in the thigh. General: In-patient, bedside examination. Conclusions: RIGHT: NO EVIDENCE of deep or superficial vein thrombosis of the lower extremity.LEFT: The great saphenous vein is not visualized or surgically absent in the thigh. NO EVIDENCE of deep or superficial vein thrombosis of the lower extremity. Recommendations: Any questions prior to finalization, please call the reading physician during normal business hours at the phone number beside their name. NM pulmonary perfusion scan Result Date: 10/20/2023 PERFUSION LUNG SCAN COMPARISON: None. CORRELATION: Chest radiograph 10/20/2023 HISTORY: Chest pain, shortness breath. TECHNIQUE: 5.6 mCi technetium 99m MAA injected intravenously without reported complication. Planar images of the lungs obtained in multiple projections for both ventilation and perfusion. FINDINGS: Normal heterogeneous uptake seen within the right lung. Large perfusion defect involving a majority of the left mid/lower lung. Of note, patient has evidence of moderate left pleural effusion on prior chest x-ray which may be causing significant compressive atelectasis IMPRESSION: * Large perfusion defect involving majority of the left mid/lower lung with underlying pleural effusion on the chest radiograph.. * Intermediate probability for pulmonary embolism. * A central or hilar obstructing lesion to the left lower lobe cannot be excluded in the setting. * Ventilation imaging was not performed. Approved by Resident Pavan Durbin DO on 10/20/2023 2:00 PM Kye Marcial MD have personally reviewed the image(s) and agree with and/or edited the report Finalized by Kye Kapadia MD on 10/20/2023 2:20 PM X-ray chest 1 view Result Date: 10/20/2023 XR CHEST 1 VW HISTORY: Shortness of breath COMPARISON: 10/11/2023 FINDINGS: Interval removal of leftneck catheter. Prior median sternotomy. Left shoulder tenodesis. Small left pleural effusion and left lower lobe airspace opacification does not appear significantly changed across multiple prior exam inations. Cardiac mediastinal silhouette appears stable and within normal limits given portable technique. IMPRESSION: * No significant interval change other than left IJ central venous catheter having been removed.. Approved by Resident: Agustin Flores MD on 10/20/2023 2:12 AM Shiv Marcial MD have personally reviewed the image(s) and agree with and/or edited the report Finalized by Shiv Pinzon MD on 10/20/2023 2:17 AM X-ray spine lumbar 2 or 3 views Result Date: 10/20/2023 Clinical history: Status post fall, back pain. Comparisons: None Findings: AP and lateral lumbar spine radiographs obtained. 5 lumbar-like vertebral bodies are present in normal alignment. There is an anterior wedge compression fracture at T12 which was not present on a CT chest 10/04/2023. The other vertebral body heights are preserved. Some changes of degenerative disc disease are present at L5-S1. No malalignment. Left lower pole renal calculi are present. Bifurcated abdominal aortic endograft and vascular calculations are present. IMPRESSION: 1. Anterior wedge compression fracture T12, newwhen compared with CT scan 10/04/2023. 2. Degenerative disc disease L5-S1. Finalized by Shiv Pinzon MD on 10/20/2023 2:15 AM Echo limited W/ contrast Result Date: 09/08/2023 Left Ventricle: Left ventricle appears normal in size. Wall thickness is normal. Systolic function is normal with an ejection fraction of 55-60%. See wall score diagram for wall motion abnormalities.Pericardium: There is pleural effusion. The study had technical difficulties. The study was difficult due to patient's body habitus and poor acoustic windows. Echo complete W/ contrast Result Date: 07/27/2023 Left Ventricle: Left ventricle appears normal in size. Systolic function is normal with an ejectionfraction of 55-60%. Right Ventricle: Systolic function is mildly reduced. Abnormal tricuspid annular plane systolic excursion. Aortic Valve: There is moderate to severe regurgitation. There is moderate to severe stenosis. The calculated aortic valve area is 0.59 cm2. The calculated aortic valve peak gradient is 68.00 mmHg. The calculated aortic valve mean gradient is 36.00 mmHg. Tricuspid Valve: There is mild to moderate regurgitation. There is no evidence of tricuspid valve stenosis. ASSESSMENT / PLAN: PE - high prob VQ scan - s Heparin gtt Cardiac echo - pending read Chronic hypoxic resp failure- baseline O2 2L Hx SARAH T12 Fx Ok to proceed with kyphoplasty Okay to start eliquis after kyphoplasty * Asha Cobian APRN-RN REFERRAL - 10/21/2023 7:16 AM EDT Images from the original note were not included. [facility] [address] [place] [address] PROGRESS NOTE Brian Mandel is resting in bed. He denies any chest pain or shortness of breath. SUBJECTIVE Allergies: No Known Allergies CURRENT MEDICATIONS atorvastatin, 20 mg, oral, Nightly famotidine, 20 mg, intravenous, Q24H insulin lispro, 2-10 Units, subcutaneous, TID with meals insulin lispro, 2-8 Units, subcutaneous, Nightly metoprolol succinate XL, 25 mg, oral, Daily sodium chloride, 3 mL, intravenous, Q12H LYNN ticagrelor, 90 mg, oral, Q12H LYNN CONTINUOUS INFUSIONS heparin, 300-3,500 Units/hr, Last Rate: 1,450 Units/hr (10/21/23 0127) sodium chloride 0.9 %, 20 mL/hr Review of Systems: Cardiovascular: No chest pain, dyspnea on exertion, palpitations or loss of consciousness. No cough, hemoptysis, pleuritic pain, or phlebitis. Respiratory: No cough or wheezing, no sputum production, no hematemesis. Neurological: No headache, diplopia, change in muscle strength, numbness or tingling. No change in gait, balance, coordination, mood, affect, memory, mentation, behavior. Hematologic/Lymphatic: No abnormal bruising or bleeding, blood clots or swollen lymph nodes. OBJECTIVE CBC: Results from last 7 days Lab Units 10/21/23 0649 10/20/23 1628 10/20/23 0140 WBC X10E9/L 7.5 -- 11.0 HEMOGLOBIN g/dL 8.3* 8.8* 8.9* HEMATOCRIT % 24.6* -- 26.4* MCV fL 97 -- 97 PLATELETS X10E9/L 175 176 204 BMP: Results from last 7 days Lab Units 10/20/23 2026 10/20/23 1447 10/20/23 1004 10/20/23 0140 SODIUM mmol/L -- -- -- 135 POTASSIUM mmol/L 3.5 3.1* -- 3.0* CHLORIDE mmol/L -- -- -- 95* CO2 mmol/L -- -- -- 27 BUN mg/dL -- -- -- 20 CREATININE mg/dL -- -- -- 1.70* CALCIUM mg/dL -- -- -- 8.7 MAGNESIUM mg/dL 2.6 -- 1.2* -- PT/INR: Results from last 7 days Lab Units 10/20/23 1628 PROTIME sec 13.4* INR 1.2* MAG: Results from last 7 days Lab Units 10/20/23202510/20/23 1004 MAGNESIUM mg/dL 2.6 1.2* D Dimer: Results from last 7 days Lab Units 10/20/23 0140 D DIMER ng/mL DDU 4,961* ProBNP Results from last 7 days Lab Units 10/20/23 0140 BNP pg/mL 104* Lipid Panel: Lab Results Component Value Date CHOL 136 (L) 10/05/2023 TRIG 83 10/05/2023 HDL 41 10/05/2023 HgA1C: Lab Results Component Value Date HGBA1C 5.5 09/21/2023 CV TESTING HISTORY: ECHO: Echo limited W/ contrast Result Date: 09/08/2023 Left Ventricle: Left ventricle appears normal in size. Wall thickness is normal. Systolic function is normal with an ejection fraction of 55-60%. See wall score diagram for wall motion abnormalities.Pericardium: There is pleural effusion. The study had technical difficulties. The study was difficult due to patient's body habitus and poor acoustic windows. Echo complete W/ contrast Result Date: 07/27/2023 Left Ventricle: Left ventricle appears normal in size. Systolic function is normal with an ejectionfraction of 55-60%. Right Ventricle: Systolic function is mildly reduced. Abnormal tricuspid annular plane systolic excursion. Aortic Valve: There is moderate to severe regurgitation. There is moderate to severe stenosis. The calculated aortic valve area is 0.59 cm2. The calculated aortic valve peak gradient is 68.00 mmHg. The calculated aortic valve mean gradient is 36.00 mmHg. Tricuspid Valve: There is mild to moderate regurgitation. There is no evidence of tricuspid valve stenosis. CXR: X-ray chest 1 view Result Date: 10/20/2023 XR CHEST 1 VW HISTORY: Shortness of breath COMPARISON: 10/11/2023 FINDINGS: Interval removal of leftneck catheter. Prior median sternotomy. Left shoulder tenodesis. Small left pleural effusion and left lower lobe airspace opacification does not appear significantly changed across multiple prior exam inations. Cardiac mediastinal silhouette appears stable and within normal limits given portable technique. IMPRESSION: * No significant interval change other than left IJ central venous catheter having been removed.. Approved by Resident: Agustin Flores MD on 10/20/2023 2:12 AM Shiv Marcial MD have personally reviewed the image(s) and agree with and/or edited the report Finalized by Shiv Pinzon MD on 10/20/2023 2:17 AM TELEMETRY: Sinus rhythm, heart rate 60 PHYSICAL EXAM Admission Weight: Weight: 96.5 kg (212 lb 11.9 oz) I/O last 3 completed shifts: In: - Out: 400 [Urine:400] Weight change: Wt Readings from Last 3 Encounters: 10/21/23 96.5 kg (212 lb 11.9 oz) 10/12/23 105.6 kg (232 lb 12.9 oz) 10/04/23 106.1 kg (234 lb) Vitals: Vitals: 10/20/23 2116 10/21/23 0005 10/21/23 0308 10/21/23 0500 BP: 111/52 103/63 99/57 Pulse: 67 64 61 Resp: 20 18 Temp: 36.8 C (98.2 F) 36.7 C (98 F) 36.5 C (97.7 F) TempSrc: Oral Oral Oral SpO2: 100% 100% 98% Weight: 96.5 kg (212 lb 11.9 oz) Height: Admit Weight Weight: 96.5 kg (212 lb 11.9 oz) Last 3 Weights Last 3 Weight Readings 10/21/23 0500 Weight: 96.5 kg (212 lb 11.9 oz) Body mass index is 41.55 kg/m . INTAKE/OUTPUT I/O last 3 completed shifts: In: - Out: 400 [Urine:400] Intake/Output Summary (Last 24 hours) at 10/21/2023 0716 Last data filed at 10/20/2023 1900 Gross per 24 hour Intake -- Output 400 ml Net -400 ml General appearance: Alert oriented and cooperative, In no acute distress Skin: Warm and dry to touch Head: Normocephalic, without obvious abnormality, atraumatic Eyes: Conjunctivae unremarkable, EOM's intact, sclera non icteric Neck: No JVD, no carotid bruit, neck supple, trachea midline Lungs: Clear to ausculation bilaterally, no use of accessory muscles Heart:: RRR with normal S1 and S2, murmur present. Abdomen: Soft, non-tender, bowel sounds normal. Extremities: No edema Neurologic: Oriented to time, person and place, affect appropriate, no focal/major motor or sensorydefects noted Psychiatric: Appropriate mood, memory and judgment ASSESSMENT Preoperative cardiovascular risk assessment for kyphoplasty of T12 compression fracture due to syncope and collapse Mildly elevated high sensitivity troponin Likely in the setting of chronic kidney disease No evidence of ACS Syncope and collapse [place] vessel ASCVD S/p CABG x2 in 2007 per patient: FAULKNER-LAD, SVG-dRCA S/p LHC 07/19/2023 in the setting of NSTEMI revealing severe three-vessel ASCVD. PCI/KARL of distal left main-ostial circumflex. Widely patent sequential XQYC-ICN-kcmcdhog, SVG-PDA Chronic heart failure with preserved LVEF 55-60% on TTE 07/26/2023 Moderate to severe aortic valve regurgitation on TTE 07/26/2023 Moderate to severe aortic valve stenosis on TTE 07/26/2023 Peak gradient 68.00 mmHg, mean gradient 36.0 mmHg [id number] TR on TTE 07/26/2023 Essential hypertension Dyslipidemia COPD, on home supplemental oxygen Elevated D-dimer, 4961 ng/mL DDU VQ scan 10/20/2023: Large perfusion defect involving majority of the left mid/lower lung with underlying pleural effusion. Intermediate probability of PE. Central or hilar obstructing lesion to the left lower lobe can not be excluded. Hypokalemia Resolved, 4.2 mmol/L Hypomagnesemia Resolved, 2.5 mg/dL Acute on chronic kidney disease Creatinine 1.34, BUN 18, eGFR 55 PLAN Patient currently on heparin drip during my rounds. In reviewing attending note, will move forward with his recommendations regarding patient an elevated a high risk for kyphoplasty while on ticagrelor. Continue atorvastatin, metoprolol succinate XL. Patient will need to be seen by structural heart on an outpatient basis regarding moderate to severe aortic valve stenosis/aortic valve regurgitation and having an unwitnessed syncopal episode. Discuss this with patient, patient verbalized understanding. Will continue to follow along. APRIL Preston This note was completed using a voice taffy puller system. Every effort was made to ensure accuracy. However, inadvertent computerized taffy puller errors may be present. APRIL Preston 10/21/23 1043 * Allie Joseph RPH - 10/20/2023 5:54 PM EDT [facility] Department of Pharmacy Pharmacist to Physician Communication The dose of famotidine has been changed to 20 mg every 24 hours per the [facility] approved renal dosing guidelines, based on an CrCl` 38.3 ml/min Thank you, Allie Joseph RPH documented in this encounter[facility]24 Progress note* Significant Event - Matt Montemayor MD - 10/25/2023 10:53 AM EDT Just received a phone call from Dr Rust, Anesthesiologist, at [facility] concerned about severe Aortic stenosis. Please refer to his documentation for further details. Thanks. Matt Montemayor MD, FACC Addendum: I spoke over the phone with Sally Moore, our structural Heart RASHAUN, to have the attending review EHR data and 2D echocardiogram results remotely and if necessary we can transfer patient to [facility] for further evaluation and management of her aortic stenosis by the structural heart team and subsequent kyphoplasty etc.. Thank you. Matt Montemayor MD, FACC [facility]09-03-2024 Progress note* Significant Event - Matt Montemayor MD - 10/25/2023 10:37 AM EDT Saw patient prior to OR this AM. Sleeping soundly. Arousable. No active cardiac symptoms. CVS: Regular with persistent systolic murmur. Stable overnight cardiac bueno with no new cardiac recommendations. Discussed with the patient's nurse Evelyn, while I was on the floor. Await surgery. Patient & the surgeon understands high cardiac risk perioperatively. Thanks. Matt Montemayor MD, FACC [facility]09-03-2024 Progress note* PT/OT/RESEARCH TEST ENGINE OPERATOR - Suzanne Weinberg PTA - 10/25/2023 9:37 AM EDT Physical Therapy CANCEL - Deferred (pt conts with increased pain levels, potential for surgery this date, will cont to hold at this time and check back as appropriate and able to participate in PT services.) Associated attestation - Beulah Kohli, PT - 10/25/2023 12:05 PM EDT I have reviewed and agree with this note and education documentation for this visit. [facility]09-03-2024 Progress note* PT/OT/RESEARCH TEST ENGINE OPERATOR - Monika Redman OT/L - 10/25/2023 9:36 AM EDT Occupational Therapy CANCEL - Deferred OT will hold due to patient with possible surgery this day and RN reporting patient having increased pain this morning. OT to check back as able and appropriate. [facility]09-03-2024 Hospital course Narrative* Julia Man MD - 10/25/2023 9:00 AM EDT Images from the original note were not included. [facility] INTERNAL MEDICINE [facility] [id number] [place] [id number] Hospital Medicine Discharge Summary Patient: Brian Mandel Date of : 1950 Room: 2240/ Encounter date: 10/25/23 Hospital Day: 6 DATE OF ADMISSION: 10/20/2023 DATE OF DISCHARGE:10/25/2023 DISCHARGE DIAGNOSES Principal Problem: T12 compression fracture ([facility]) Active Problems: Benign essential hypertension Chronic diastolic congestive heart failure [place] COPD (chronic obstructive pulmonary disease) [place] Dyslipidemia Type 2 diabetes mellitus with hyperglycemia, without long-term current use of insulin ([facility] CONSULTANTS Cardiology Pulmonology Ortho spine PCP: Melanie Taylor, DO PROCEDURES NA ROS Review of Systems Constitutional: Negative for chills and fever. HENT: Negative for ear pain and sore throat. Eyes: Negative for pain and visual disturbance. Respiratory: Negative for cough and shortness of breath. Cardiovascular: Negative for chest pain and palpitations. Gastrointestinal: Negative for abdominal pain and vomiting. Genitourinary: Negative for dysuria and hematuria. Musculoskeletal: Positive for back pain. Negative for arthralgias. Skin: Negative for color change and rash. Neurological: Negative for seizures and syncope. All other systems reviewed and are negative. Physical Exam Physical Exam Constitutional: General: He is not in acute distress. Appearance: He is well-developed. He is obese. Interventions: Nasal cannula in place. HENT: Head: Normocephalic. Right Ear: External ear normal. Left Ear: External ear normal. Nose: Nose normal. Eyes: Conjunctiva/sclera: Conjunctivae normal. Pupils: Pupils are equal, round, and reactive to light. Cardiovascular: Rate and Rhythm: Normal rate and regular rhythm. Heart sounds: Normal heart sounds. No murmur heard. Pulmonary: Effort: Pulmonary effort is normal. Breath sounds: Normal breath sounds. No wheezing. Abdominal: General: Bowel sounds are normal. Palpations: Abdomen is soft. There is no mass. Tenderness: There is no abdominal tenderness. Musculoskeletal: General: Normal range of motion. Cervical back: Normal range of motion. Thoracic back: Tenderness present. Lymphadenopathy: Cervical: No cervical adenopathy. Skin: General: Skin is warm and dry. Findings: No rash. Neurological: Mental Status: He is alert. Cranial Nerves: No cranial nerve deficit. Coordination: Coordination normal. Psychiatric: Behavior: Behavior normal. HOSPITAL COURSE SUMMARY Per H&P: Brian Mandel is a 73 y.o. male who presents to the emergency room at [facility] with shortness of breath and lower back pain after a fall. The patient states that he was recently discharged from [facility] and that he was home and doing fine until he got up to walk to the kitchen and he was going to take a bath and he felt very short of breath and he fell to the ground. He was complaining of back pain post fall. He denies any loss of consciousness. Patient had a recent admission and was transferred from the [facility] on October 08 for sepsis and hypotension. Radha had acute kidney injury at that time. The patient is on home oxygen and has a history of COPD.The patient said he is on O2 at home. The patient arrived from EMS in no distress. Patient transferred from [facility] to [facility] for further evaluation and care. . T12 compression fracture Ortho spine following Cardiology cleared patient at high-risk, no absolute cardiac contraindications for this planned surgery Pulmonology clearing for kyphoplasty Anesthesia would like managed prior to clearing Chronic diastolic CHF CAD s/p CABG Essential hypertension Mixed hyperlipidemia Moderate to severe Cardiology following Plans for transfer to [facility] for THIERRY and further evaluation/management of , patient agreeable to transfer, process initiated and transport arranged later this evening per RN Continue with Lipitor, Toprol, Brilinta Large perfusion defect left mid/lower lung on V/Q scan COPD with chronic hypoxic respiratory failure baseline O2 needs of 2 L NC SARAH Pulmonology following Currently on baseline O2 needs Currently remains on heparin infusion [facility] Plan to transfer to [facility] for THIERRY and further evaluation regarding AI/. Transfer process initiated, RN reports transport to be arranged later tonight. Following this patient will need further clearance for kyphoplasty. Inpatient Medications Scheduled Medications: atorvastatin, 20 mg, oral, Nightly famotidine, 20 mg, intravenous, Q24H insulin lispro, 2-10 Units, subcutaneous, TID with meals insulin lispro, 2-8 Units, subcutaneous, Nightly metoprolol succinate XL, 25 mg, oral, Daily sodium chloride, 3 mL, intravenous, Q12H LYNN ticagrelor, 90 mg, oral, Q12H LYNN Continuous Infusions: heparin, 300-3,500 Units/hr, Last Rate: 900 Units/hr (10/25/23 1633) sodium chloride 0.9 %, 20 mL/hr, Last Rate: 20 mL/hr (10/25/23 0602) PRN Medications: acetaminophen dextrose dextrose 50 % in water (D50W) glucagon (human recombinant) heparin (porcine) HYDROcodone-acetaminophen magnesium sulfate magnesium sulfate ondansetron potassium chloride OR potassium chloride sodium chloride sodium chloride sodium chloride 0.9 % Code Status: Full Code Labs Recent Results (from the past 48 hour(s)) Bedside Glucose *Place/Obtain serum glucose if >500(>600 MRH) per glucometer. Collection Time: 10/23/23 8:06 PM Result Value Ref Range Bedside glucose 135 (H) 65 - 99 mg/dL Magnesium Collection Time: 10/23/23 11:21 PM Result Value Ref Range Magnesium 2.4 1.8 - 2.6 mg/dL Comprehensive metabolic panel Collection Time: 10/24/23 6:21 AM Result Value Ref Range Sodium 139 134 - 146 mmol/L Potassium, Bld 4.2 3.5 - 5.0 mmol/L Chloride 104 98 - 109 mmol/L CO2 25 22 - 32 mmol/L Anion gap 10 5 - 15 mmol/L BUN 9 5 - 27 mg/dL Creatinine 1.05 0.70 - 1.20 mg/dL Glucose 125 (H) 65 - 99 mg/dL Calcium 8.9 8.5 - 10.5 mg/dL Total Protein 7.3 6.0 - 8.0 g/dL Albumin 3.1 (L) 3.2 - 5.3 g/dL Alkaline Phosphatase 174 (H) 39 - 130 U/L AST 41 0 - 41 U/L ALT 27 0 - 40 U/L Total bilirubin 0.7 0.3 - 1.2 mg/dL eGFR (CKD-EPI)non-race dependent 74 >59 ml/min/1.73sq.m Magnesium Collection Time: 10/24/23 6:21 AM Result Value Ref Range Magnesium 2.2 1.8 - 2.6 mg/dL CBC auto differential Collection Time: 10/24/23 6:21 AM Result Value Ref Range White Blood Cells 10.0 4.0 - 11.0 X10E9/L RBC count 2.65 (L) 4.10 - 5.70 X10E12/L Hemoglobin 8.7 (L) 13.0 - 17.0 g/dL Hematocrit 26.2 (L) 39 - 49 % MCV 99 80 - 100 fL MCH 32.8 27 - 34 pg MCHC 33.2 32 - 36 g/dL RDW 18.0 (H) 11.5 - 15.0 % Platelets 188 150 - 450 X10E9/L MPV 9.7 7 - 12 fL % neutrophils 59.2 % % lymphocytes 26.7 % % monocytes 6.7 % % eosinophils 5.9 % % Basophils 1.5 % Neutrophils Absolute (A) 5.9 1.5 - 6.6 X10E9/L Lymphocytes Absolute 2.7 1.0 - 3.5 X10E9/L Monocytes Absolute 0.7 0 - 0.9 X10E9/L Eosinophils Absolute 0.6 (H) 0.0 - 0.4 X10E9/L Basophils Absolute 0.1 0.0 - 0.2 X10E9/L Anti XA unfractionated heparin Collection Time: 10/24/23 6:21 AM Result Value Ref Range Heparin anti-xa, unfractionated 0.48 0.30 - 0.70 IU/mL Bedside Glucose *Place/Obtain serum glucose if >500(>600 MRH) per glucometer. Collection Time: 10/24/23 7:46 AM Result Value Ref Range Bedside glucose 110 (H) 65 - 99 mg/dL Bedside Glucose *Place/Obtain serum glucose if >500(>600 MRH) per glucometer. Collection Time: 10/24/23 11:56 AM Result Value Ref Range Bedside glucose 106 (H) 65 - 99 mg/dL Bedside Glucose *Place/Obtain serum glucose if >500(>600 MRH) per glucometer. Collection Time: 10/24/23 4:14 PM Result Value Ref Range Bedside glucose 101 (H) 65 - 99 mg/dL Bedside Glucose *Place/Obtain serum glucose if >500(>600 MRH) per glucometer. Collection Time: 10/24/23 9:07 PM Result Value Ref Range Bedside glucose 121 (H) 65 - 99 mg/dL Hemoglobin Collection Time: 10/25/23 12:19 AM Result Value Ref Range Hemoglobin 7.5 (L) 13.0 - 17.0 g/dL Comprehensive metabolic panel Collection Time: 10/25/23 5:38 AM Result Value Ref Range Sodium 141 134 - 146 mmol/L Potassium, Bld 3.9 3.5 - 5.0 mmol/L Chloride 106 98 - 109 mmol/L CO2 28 22 - 32 mmol/L Anion gap 7 5 - 15 mmol/L BUN 7 5 - 27 mg/dL Creatinine 0.93 0.70 - 1.20 mg/dL Glucose 108 (H) 65 - 99 mg/dL Calcium 9.0 8.5 - 10.5 mg/dL Total Protein 6.5 6.0 - 8.0 g/dL Albumin 2.8 (L) 3.2 - 5.3 g/dL Alkaline Phosphatase 152 (H) 39 - 130 U/L AST 27 0 - 41 U/L ALT 23 0 - 40 U/L Total bilirubin 1.0 0.3 - 1.2 mg/dL eGFR (CKD-EPI)non-race dependent 86 >59 ml/min/1.73sq.m Magnesium Collection Time: 10/25/23 5:38 AM Result Value Ref Range Magnesium 1.8 1.8 - 2.6 mg/dL CBC auto differential Collection Time: 10/25/23 5:38 AM Result Value Ref Range White Blood Cells 6.6 4.0 - 11.0 X10E9/L RBC count 2.32 (L) 4.10 - 5.70 X10E12/L Hemoglobin 7.6 (L) 13.0 - 17.0 g/dL Hematocrit 22.9 (L) 39 - 49 % MCV 99 80 - 100 fL MCH 32.8 27 - 34 pg MCHC 33.1 32 - 36 g/dL RDW 18.3 (H) 11.5 - 15.0 % Platelets 152 150 - 450 X10E9/L MPV 10.0 7 - 12 fL % neutrophils 59.7 % % lymphocytes 24.8 % % monocytes 7.2 % % eosinophils 5.9 % % Basophils 2.4 % Neutrophils Absolute (A) 3.9 1.5 - 6.6 X10E9/L Lymphocytes Absolute 1.6 1.0 - 3.5 X10E9/L Monocytes Absolute 0.5 0 - 0.9 X10E9/L Eosinophils Absolute 0.4 0.0 - 0.4 X10E9/L Basophils Absolute 0.2 0.0 - 0.2 X10E9/L Anti XA unfractionated heparin Collection Time: 10/25/23 5:38 AM Result Value Ref Range Heparin anti-xa, unfractionated 0.07 (L) 0.30 - 0.70 IU/mL Bedside Glucose *Place/Obtain serum glucose if >500(>600 [facility]) per glucometer. Collection Time: 10/25/23 10:31 AM Result Value Ref Range Bedside glucose 92 65 - 99 mg/dL Bedside Glucose *Place/Obtain serum glucose if >500(>600 [facility]) per glucometer. Collection Time: 10/25/23 12:05 PM Result Value Ref Range Bedside glucose 98 65 - 99 mg/dL Bedside Glucose *Place/Obtain serum glucose if >500(>600 [facility]) per glucometer. Collection Time: 10/25/23 4:00 PM Result Value Ref Range Bedside glucose 98 65 - 99 mg/dL Radiology Echo limited W/O contrast Result Date: 10/21/2023 Narrative: Left Ventricle: Systolic function is normal with an ejection fraction of 60-65%. The quantitative EF by 2D Hutchinson biplane is 63%. No obvious regional wall motion abnormalities. Pericardium: There is no pericardial effusion. CT Ion Chest without contrast Result Date: 10/20/2023 Narrative: History: Respiratory illness, nondiagnostic xray Exam/Technique: Serial axial CT images of the chest were obtained without IV dye. All CT scans at this facility use dose modulation, iterative reconstruction, and/or weight based dosing when appropriate to reduce radiation dose to as low as reasonably achievable. Automated exposure control was utilized. Computer aided detection for pulmonary nodules?was performed utilizing Tier [employer] software.? Comparison: 10/04/2023 Findings: Neck base is grossly unremarkable.. Midline sternotomy wires are grossly intact. There is no gross soft tissueabnormality at the surgical bed there are cardiac surgical changes with no significant cardiomegalyor pericardial effusion. There are severe coronary artery calcifications. There is moderate degree of diffuse atherosclerotic disease and calcified intimal plaque throughout thoracic aorta with maximum transverse diameter of 3.9 cm of the ascending segment. There is no pathological mediastinal lymphadenopathy by size criteria. There is small left-sided pleural effusion with left lower lobe alveolar opacity possibly atelectasis versus consolidation. Findings are less prominent compared to prior exam. There are central groundglass opacities throughout both lungs raising concern for pulmonary edema or interstitial pneumonia. There is 6 mm right lower lobe pulmonary nodule. This is best identified at axial image #111 series 2. A non-calcified 6 mm solid nodule in the right lower lobe is indeterminate. There is moderate fatty infiltration of the pancreas. There is heterogeneous and irregularhepatic contour. Underlying liver cirrhosis cannot be excluded. Spleen and adrenal glands are unremarkable. There are few calcified nonobstructing bilateral renal stones with average diameter of 2 to3 mm. IMPRESSION: There is interval decrease in the degree of left-sided pleural effusion and left alveolar opacity possibly atelectasis versus consolidation. There is interval development of centralbilateral groundglass opacity raising concern for pulmonary edema or interstitial pneumonia. Indeterminate solid pulmonary nodule measuring 6 mm. In a patient of unknown risk level with a solid nodule of 6-8 mm, recommend CT at 6-12 months. In a low-risk patient, then consider CT at 18-24 months. In a high-risk patient, if the nodule is stable at 6-12 months, recommend CT at 18-24 months. Seymour Garcia et al. Guidelines for Management of Incidental Pulmonary Nodules Detected on CT Images: From the Fleischner Society 2017. Radiology. 2017 Umesh;284(1):228-243. Finalized by Elizabeth Pfeiffer MD on 10/20/2023 7:12 PM Vas venous duplex lwr bilateral Result Date: 10/20/2023 Narrative: Right: Common femoral, femoral, popliteal and deep calf muscle veins are compressible without intraluminal content. Spontaneous, phasic common femoral, femoral and popliteal spectral Doppler signals. Compressible thigh superficial Great saphenous vein. Left: Common femoral, femoral, popliteal and deep calf muscle veins are compressible without intraluminal content. Spontaneous, phasic common femoral, femoral and popliteal spectral Doppler signals. Absent Great saphenous superficial vein in the thigh. General: In- patient, bedside examination. Conclusions: RIGHT: NO EVIDENCE of deep or superficial vein thrombosis of the lower extremity.LEFT: The great saphenous vein is not visualized or surgically absent in the thigh. NO EVIDENCE of deep or superficial vein thrombosis of the lower extremity. Recommendations: Any questions prior to finalization, please call the [facility] normal business hours at the phone number beside their name. NM pulmonary perfusion scan Result Date: 10/20/2023 Narrative: PERFUSION LUNG SCAN COMPARISON: None. CORRELATION: Chest radiograph 10/20/2023 HISTORY: Chest pain, shortness breath. TECHNIQUE: 5.6 mCi technetium 99m MAA injected intravenously without reported complication. Planar images of the lungs obtained in multiple projections for both ventilation and perfusion. FINDINGS: Normal heterogeneous uptake seen within the right lung. Large perfusion defect involving a majority of the left mid/lower lung. Of note, patient has evidence of moderate left pleural effusion on prior chest x-ray which may be causing significant compressive atelectasis IMPRESSION: * Large perfusion defect involving majority of the left mid/lower lung with underlying pleural effusion on the chest radiograph.. * Intermediate probability for pulmonary embolism. * A central or hilar obstructing lesion to the left lower lobe cannot be excluded in the setting. * Ventilation imaging was not performed. Approved by Resident Pavan Durbin DO on 10/20/2023 2:00 PM Sheri Marcial MD have personally reviewed the image(s) and agree with and/or edited the report Finalized by Kye Kapadia MD on 10/20/2023 2:20 PM X-ray chest 1 view Result Date: 10/20/2023 Narrative: XR CHEST 1 VW HISTORY: Shortness of breath COMPARISON: 10/11/2023 FINDINGS: Interval removal of left neck catheter. Prior median sternotomy. Left shoulder tenodesis. Small left pleural effusion and left lower lobe airspace opacification does not appear significantly changed across multiple prior examinations. Cardiac mediastinal silhouette appears stable and within normal limits given portable technique. IMPRESSION: * No significant interval change other than left IJ central venous catheter having been removed.. Approved by Resident: Agustin Flores MD on 10/20/2023 2:12 AM Shiv Marcial MD have personally reviewed the image(s) and agree with and/or edited the repor t Finalized by Shiv Pinzon MD on 10/20/2023 2:17 AM X-ray spine lumbar 2 or 3 views Result Date: 10/20/2023 Narrative: Clinical history: Status post fall, back pain. Comparisons: None Findings: AP and lateral lumbar spine radiographs obtained. 5 lumbar-like vertebral bodies are present in normal alignment.There is an anterior wedge compression fracture at T12 which was not present on a CT chest 10/04/2023. The other vertebral body heights are preserved. Some changes of degenerative disc disease are present at L5-S1. No malalignment. Left lower pole renal calculi are present. Bifurcated abdominal aortic endograft and vascular calculations are present. IMPRESSION: 1. Anterior wedge compression fracture T12, new when compared with CT scan 10/04/2023. 2. Degenerative disc disease L5-S1. Finalized by Shiv Pinzon MD on 10/20/2023 2:15 AM X-ray chest 1 view Result Date: 10/11/2023 Narrative: History: Pleural effusion EXAM: Chest AP portable upright COMPARISON: 10/09/2023 FINDINGS: Stable left IJ central line. Unchanged cardiac silhouette, left pleural effusion, adjacent atelectasis. No pneumothorax right lung is clear. IMPRESSION: No significant change. Finalized by Dagoberto Wiley MD on 10/11/2023 9:39 AM Ultrasound abdomen limited with duplex Result Date: 10/10/2023 Narrative: Abdominal ultrasound with Doppler, 10/10/2023. History: Dyspnea, fluid overload. Comparison: CT abdomen and pelvis 10/04/2023. Technique: Grayscale sonographic imaging of the right upper quadrant was performed. Color and spectral Doppler ultrasound was used to assess blood flow characteristics. Findings: The liver parenchyma is diffusely echogenic with decreased through- transmission. Liver measures 11.0 cm craniocaudal at mid clavicular line. No discrete mass. No definite intra- or extrahepatic biliary dilatation is seen. No significant abdominal ascites. Gallbladder demonstrates no wall thickening or pericholecystic fluid. The common bile duct measures 5 mm which is within the range of normal. No free fluid is demonstrated. Color and spectral Doppler ultrasound was performed to assess the hepatic vasculature. Blood flow within the main portal vein is hepatopedal with a peak systolic velocity of 27.7 cm/sec. Spectral waveforms are normal. The hepatic veins, hepatic arteries and inferior vena cava are patent with normal spectral waveforms. Impression: * No evidence of acute vascular abnormality. * Echogenic liver parenchyma compatible with hepatocellular disease, most commonly steatosis. Finalized by Braulio De Anda MD on 10/10/2023 8:53 PM X-ray chest 1 view Result Date: 10/09/2023 Narrative: CHEST 1 VIEW HISTORY: Postthoracentesis COMPARISON: 10/08/2023 FINDINGS: Stable left-sided central venous catheter and sternotomy wires. Unchanged small left pleural effusion with adjacent atelectasis. No pneumothorax. Right lung is clear. IMPRESSION: No significant interval change. Finalized by Edilberto Willoughby MD on 10/09/2023 8:42 AM X-ray chest 1 view Result Date: 10/08/2023 Narrative: Single view chest History:post thoracentesis Difficulty breathing, shortness of breath Comparison: 10/06/2023 Findings: Single portable view of the chest. Left jugular catheter is stable. Decreased left pleural effusion with left lower lung atelectasis versus pneumonia. Stable cardiomediastinal silhouette. Mild vascular congestion. Impression: Decreased left pleural effusion with persistent left lower lung atelectasis versus pneumonia. Finalized by Kye Kapadia MD on 10/08/2023 7:08 AM IR thoracentesis with guidance left Result Date: 10/07/2023 Narrative: Ultrasound-guided left thoracentesis. Indication: pleural effusion, shortness of breath.Consent: The risks and benefits of the procedure were explained to the patient signed written consent. TIME OUT: [place] Protocol Time Out Verification performed. Procedure details: In the sitting position, the left chest was evaluated with ultrasound and this revealed small pleural effusion. Theposterior left chest was prepped and draped in a sterile fashion and the skin was infiltrated with 1% lidocaine. A small skin francois with an 11 blade was made. Using real-time ultrasound guidance, an 18-gauge Yueh needle was advanced in the left posterior pleural cavity during direct ultrasound needle visualization, and an ultrasound customer account representative image was obtained and saved in PACS; the catheterwas connected to a vacuum bottle, and approximately 0.5 liters of yellow fluid was removed and sentfor analysis. The needle was removed and dressing placed. No immediate complications. Estimated blood loss: 0 mL of blood. Batch Operator: None. Complications: None. Impression: Ultrasound-guided left thoracentesis revealing 0.5 liters of fluid. Finalized by Cami Andre MD on 10/07/2023 6:31 PM X-ray chest 1 view Result Date: 10/06/2023 Narrative: Clinical history: Acute respiratory failure Views: 1 Comparison: 10/05/2023 Findings/Impression: 1. Left pleural effusion with atelectasis. Right lung clear. Heart size prominent. Vasculature stable. Central line overlies SVC. 2. In summary, continued abnormal chest without interval change. Finalized by Ricardo Serra MD on 10/06/2023 7:39 AM IR CICV non tunneled more than 5 years Result Date: 10/05/2023 Narrative: CLINICAL INDICATION: ESRD, need for dialysis COMPARISON: None TECHNIQUE: Procedure performed by Interventional Radiologist Neo Anne MD Reference Air Kerma = 17.8 mGy Fluoroscopy time:1.1 minutes Saved images: 3 CONSENT: The reason of the procedure was discussed with the patient. The procedure, expectations, risks, benefits, options and alternatives were discussed. All of the patient?s questions were answered. The patient understands that the results cannot be guaranteed. The procedure is indicated and the risks are acceptable. Consent was obtained. PROCEDURE: 1. Ultrasound-guided left internal jugular vein access. Placement of a temporary trialysis catheter. Details of procedure: Patient placed in the supine position. The left neck was prepped and draped in the usual sterile fashion. Under continuous ultrasound guidance, a patent and compressible left internal jugular vein was accessed with a micropuncture needle. Permanent ultrasound images were stored in PACS. A micr owire was placed into the right atrium. A skin francois was made. The needle was removed. A micropuncture sheath was placed. The inner dilator and wire were removed. An Amplatz wire was advanced into theIVC. The micropuncture sheath was then removed. The track was dilated. A temporary trialysis catheter was placed.. The wire was removed. 2-0 Prolene suture was used to secure the line to the skin. All the lumens aspirated and flushed appropriately. Sterile caps applied. A sterile dressing was applied. Patient tolerated the procedure well and there were no immediate complications. FINDINGS: Patentand compressible left internal jugular vein. Satisfactory placement of temporary trialysis catheterIMPRESSION: Successful ultrasound and fluoroscopic guided placement of left internal jugular trialysis catheter Okay to use Finalized by Neo Anne on 10/05/2023 7:02 PM X-ray chest 1 view Result Date: 10/05/2023 Narrative: History: Known pleural effusion, reassess severity Exam/Technique: AP view of the chest.XR CHEST 1 VW Comparison: Recent studies Findings: The heart mediastinum are grossly stable howeverleft hemithorax and heart border obscured by overlapping disease. Mild congestion improved from 09/08/2023. No focal right lung disease. Persistent consolidation and suspected effusion left mid and lower lung. IMPRESSION: * Mild congestion improved from previous with persistent large consolidation and effusion obscuring the left mid and lower hemithorax. Finalized by Soham Chatman DO on 10/05/2023 12:[address] abdomen and pelvis without contrast Result Date: 10/05/2023 Narrative: Noncontrast CT abdomen and pelvis, 10/04/2023. History: Acute abdominal pain Comparison: CT abdomen and pelvis 09/21/2023. Technique: Multiple contiguous 5 mm axial images were acquired fromthe lung bases through the ischial tuberosities. Coronal and sagittal reconstructions were performed. Automated exposure control was utilized. Findings: For evaluation of the intrathoracic structures, please refer to report from concurrent chest CT. Evaluation of abdominal structures compromised byabsence of IV contrast. Redemonstration of lobulated contour of the liver without discrete mass or i ntrahepatic biliary ductal dilatation. Normal gallbladder. Pancreas, spleen and adrenal glands are unremarkable. Nonobstructing bilateral renal calculi with the largest stone located in the left renal pelvis measuring up to 1.7 cm. No hydronephrosis or perinephric fluid collection. Urinary bladder is incompletely distended. Prostate is normal in size with coarse calcification noted. Bowel demonstrates no obstruction or acute inflammatory change. Normal appendix. No free air or fluid. No mesenteric lymph node enlargement. 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 No retroperitoneal or pelvic lymphadenopathy. Fat-containing bilateral inguinal hernias. Significant degenerative disc disease at L5-S1. No acute osseous abnormality. IMPRESSION: * No acute pathologic process. * Nonobstructing bilateral renal calculi. All CT scans at this facility use dose modulation, iterative reconstruction, and/or weight based dosing when appropriate to reduce radiation dose to as low as reasonably achievable. Finalized by Braulio De Anda MD on 10/05/2023 12:[address] chest without contrast Result Date: 10/05/2023 Narrative: Noncontrast chest CT on 10/04/2023 HISTORY: Shortness of breath, pain COMPARISON: CT abdomen and pelvis 09/21/2023 TECHNIQUE: Multiple contiguous 2.5 mm axial images of the chest were obtained. Coronal and sagittal 2-D reconstructions were performed. Automated exposure control was utilized. FINDINGS: Normal caliber thoracic aorta with moderate atherosclerotic calcification. Pulmonary artery is normal in caliber. Heart size is enlarged with severe coronary artery calcifications noted. Valvular calcifications are present. Postoperative changes compatible with CABG. No pericardial effusion. No pathologically enlarged mediastinal lymph nodes. Moderate-sized left pleural effusion with significant associated consolidative change in the left upper and lower lobes. There is a solid 5 mm pulmonary nodule in the right lower lobe along the major fissure. No pneumothorax. Central airways are patent. No chest wall lymphadenopathy. For evaluation of abdominal structures, please refer to report from concurrent CTA abdomen and pelvis. No acute osseous abnormality. IMPRESSION: * Moderate-sized left pleural effusion with associated atelectasis and/or pneumonia. * Indeterminate solid pulmonary nodule measuring less than 6 mm. In a low-risk patient with a solid nodule <6 mm, recommend no follow-up. In a high-risk patient, CT at 12 months is optional with stronger consideration if there is suspicious nodule morphology and/or upper lobe location. All CT scans at this facility use dosemodulation, iterative reconstruction, and/or weight based dosing when appropriate to reduce radiation dose to as low as reasonably achievable. Seymour Garcia, et al. Guidelines for Management of Incidental Pulmonary Nodules Detected on CT Images: From the Fleischner Society 2017. Radiology. 2017 Umesh;284(1):228-243. Finalized by Braulio De Anda MD on 10/05/2023 12:07 AM Discharge Medications: Medication List ASK your doctor about these medications Instructions Last Dose Given Next Dose Due acetaminophen 325 mg tablet Commonly known as: TYLENOL Take 2 tablets (650 mg total) by mouth every 8 (eight) hours as needed for pain. albuterol 2.5 mg /3 mL (0.083 %) nebulizer solution Commonly known as: PROVENTIL,VENTOLIN Inhale 3 mL (2.5 mg total) by nebulization every 6 (six) hours as needed for wheezing. Patient takes it every 2 hours amitriptyline 25 mg tablet Commonly known as: ELAVIL Take 1 tablet (25 mg total) by mouth in the morning. benzonatate 200 mg capsule Commonly known as: TESSALON PERLES Take 1 capsule (200 mg total) by mouth 3 (three) times a day as needed for cough. BRILINTA 90 mg tablet Generic drug: ticagrelor Take 1 tablet (90 mg total) by mouth every 12 (twelve) hours. dapagliflozin propanediol 10 mg tablet Commonly known as: FARXIGA Take 1 tablet (10 mg total) by mouth in the morning. folic acid 1 mg tablet Commonly known as: FOLVITE Take 1 tablet (1 mg total) by mouth in the morning. furosemide 20 mg tablet Commonly known as: LASIX Take 1 tablet (20 mg total) by mouth 2 (two) times a day before meals. HYDROcodone-acetaminophen 5-325 mg per tablet Commonly known as: NORCO Take 1 tablet by mouth every 6 (six) hours as needed. hydrOXYzine 50 mg tablet Commonly known as: ATARAX Take 1-2 tablets (50-100 mg total) by mouth nightly as needed (sleep). melatonin tablet Commonly known as: CIRCADIN Take 2 tablets (6 mg total) by mouth nightly. metFORMIN XR 750 mg 24 hr tablet Commonly known as: GLUCOPHAGE XR Take 1 tablet (750 mg total) by mouth nightly. metoprolol 12.5 mg Commonly known as: LOPRESSOR Take 1 split tablet (12.5 mg total) by mouth in the morning and 1 split tablet (12.5 mg total) before bedtime. nitroglycerin 0.4 MG SL tablet Commonly known as: NITROSTAT Place 1 tablet (0.4 mg total) under the tongue every 5 (five) minutes as needed for chest pain. PARoxetine 10 mg tablet Commonly known as: PAXIL Take 1 tablet (10 mg total) by mouth every morning. simethicone 80 mg chewable tablet Commonly known as: MYLICON Chew 1 tablet (80 mg total) and swallow every 6 (six) hours as needed for flatulence. simvastatin 40 mg tablet Commonly known as: ZOCOR Take 1 tablet (40 mg total) by mouth nightly. DISCHARGE INSTRUCTION Discharge disposition: Transfer to [facility] Condition:Fair For most accurate medication list, please review the discharge medication summary. >30 minutes were spent on discharging this patient. APRIL BUCHANAN, 10/25/2023 6:29 PM [facility] 7AM-7PM (all facilities): Lily or kev through [facility]. 7PM-7AM ([facility], [facility]): Lily or kev, [phone]. 7PM-7AM ([place], [place], [place], [facility]): EpicChat or page through [employer]. This note was completed using a voice taffy puller system. Every effort is made to ensure accuracy, however inadvertent errors may occur. Sylvester Frazier APRN-SHERIDAN 10/25/23 1832 Sylvester Frazier APRN-SHERIDAN 10/25/23 1835 Physician Attestation I, Julia Man MD, personally performed a face to face diagnostic evaluation on this patient. I have reviewed the note authored by the advance practice provider including history, review of systems,physical examination,medical decision making and agree with the assessment and plan as written. I have seen and evaluated the patient, I have repeated the benoit portions of the physical exam and concur with the RASHAUN findings. I have reviewed all laboratory findings and imaging reports/films. I agree with the plan as noted. [facility] Plan of care note * Plan of Care - Natalie Montelongo RN - 10/24/2023 1:31 PM EDT Problem: Pain Goal: Patient goal is pain score less than 4, able to rest, and participant in treatment plan as appropriate Description: INTERVENTIONS: 1. Encourage patient or legal customer account representative to report early pain and ask for pain medicine when needed 2. Assess pain using appropriate pain scale and include the scale used when documenting 3. Administer analgesics based on type and severity of pain and evaluate response within appropriate time frame 4. Implement non-pharmacological measures as appropriate and evaluate response 5. Consider cultural and social influences on pain and pain management 6. Notify LIP if interventions ineffective or patient reports new pain 7. Monitor vital signs including pulse ox, end-tidal CO2 based on pain intervention 8. Reassess pain per policy 9. Teach patient or legal customer account representative interventions for comforting Outcome: Progressing Note: Evaluation of progress towards goal: pt rates back pain 5-7/10. Medicated as ordered. Pt is able to get out of bed and ambulate to bathroom using walker and staff supervision. Continue to monitor. Problem: Safety Goal: Patient will be injury free during hospitalization Description: INTERVENTIONS: 1. Assess patient's risk for falls and implement fall prevention plan of care per policy 2. Provide and maintain a safe environment 3. Proper use of double Identifiers 4. Medication administration using the 5 rights 5. Hand hygiene 6. Specimens are labeled at the bedside 7. Instruct patient/ patient customer account representative about use of safety devices 8. Include patient/ patient customer account representative in decisions related to safety Outcome: Progressing Note: Evaluation of progress towards goal: Safety measures initiated/maintained. Pt remains safe from harm/injury/falls. Pt isupervised with transfers and ambulation. Gait steady with walker. Pt usescall light if needing assistance. Continue to monitor. Problem: Infection Goal: Absence of infection during hospitalization Description: Interventions: 1. Assess and monitor for signs and symptoms of infection 2. Monitor lab/diagnostic results 3. Monitor all insertion sites i.e., indwelling lines, tubes and drains 4. Monitor endotracheal (as able) and nasal secretions for changes in amount and color 5. Administer medications as ordered 6. Instruct and encourage patient and family to use good hand hygiene technique 7. Identify and instruct patient/patient customer account representative in use of appropriate isolation precautionsfor identified infection/symptoms 8. Provide and discuss with patient/patient customer account representative on educational MDRO sheet 9. Encourage and monitor nutritional status daily and consult court monitor if indicated 10. Implement neutropenic guidelines as needed 11. Review exposure to history of communicable disease and recent travel history on admission 12. Encourage annual influenza vaccine 13. Encourage pneumonia vaccine Outcome: Progressing Note: Evaluation of progress towards goal: no signs of infection. Continue to monitor. Problem: Knowledge Deficit Goal: Patient/patient customer account representative demonstrates understanding of disease process, treatment plan,medications, and discharge instructions Description: INTERVENTIONS 1. Complete learning assessment and assess knowledge base 2. Provide teaching at level of understanding 3. Provide teaching via preferred learning method(s) Outcome: Progressing Note: Evaluation of progress towards goal: plan of care discussed with pt. Problem: Discharge Planning Goal: Discharge to post-acute care, other facility, or home with appropriate resources Description: Patient's goal is: INTERVENTIONS 1. Conduct assessment to determine patient/family and health care team treatment goals, and need for post-acute services based on payer coverage, community resources, and patient preferences, and barriers to discharge 2. Coordinate with Social work, Care Navigation, and Utilization Review to arrange appropriate level of services according to patient's needs based on patient preference and payer coverage in collaboration with the physician and health care team 3. Address psychosocial, clinical, and financial barriers to discharge as identified in assessment in conjunction with the patient/family and health care team 4. Consult appropriate ancillary services (i.e.. PT/OT/ST, etc) as needed 5. Communicate with and update the patient/family, physician, and health care team regarding progress on the discharge plan 6. Identify discharge learning needs (meds, wound care, etc). 7. Arrange for needed discharge transportation as appropriate Outcome: Progressing Note: Evaluation of progress towards goal: pt plans on returning home with home care services. Problem: Glucose Imbalance Goal: Clinical indication of glucose balance is achieved Description: Patient's goal is: INTERVENTIONS 1. Monitor blood glucose levels as ordered 2. Administer medications as ordered 3. Notify physician of ineffective treatment plan Outcome: Progressing Note: Evaluation of progress towards goal: has not required coverage today. Insulin sliding scale in place. Goal: Patient's discharge needs are met Description: Patient's goal is: INTERVENTIONS 1. Assess patient for self-management skills 2. Encourage participation in diabetes management 3. Identify potential discharge barriers on admission and throughout hospital stay 4. Involve patient/S.O. in discharge planning process 5. Communicate referral to music educator as appropriate 6. Communicate referral to court monitor as appropriate 7. Collaborate with case management/secondary social studies teacher for discharge needs Outcome: Progressing Note: Evaluation of progress towards goal: Problem: Moderate - High Risk Fall Score Description: Bell Fall Score of =/> 25 or indicated by [facility] Assessment Goal: Patient should be free from fall Description: Interventions: 1. [place] to environment 2. Hourly rounds addressing the 4 P's (Pain, Positioning, Possessions, Potty) 3. Clear area of hazards (spills, clutter, electrical cords, unnecessary equipment) 4. Place equipment (bed & TV controls, call light, phone, urinal) within reach 5. Encourage patient to wear glasses and hearing aides as appropriate 6. Maintain bed in lowest position 7. Lock wheels on bed/wheelchair 8. Provide adequate lighting, including night light 9. Assess need for additional bedding, food/fluids, pain med's prior to sleep/routinely 10. Provide gripper slippers or personal non-skid footwear 11. Teach patient and patient customer account representative to maintain environment for safety and engage in all aspects of fall prevention program 12. Remind patient to call for help before getting out of bed 13. Initiate bed/chair/exit alarms supportive devices as appropriate, (chair wedge, no-skid floor mat, raised edge mattress, hip protectors) 14. Locate patient bed assignment for optimal visualization 15. Evaluate and identify Safe Patient Handling Equipment needs 16. Provide supervision when out of bed or chair 17. Utilize gait belt as needed to assist with ambulation 18. Place adaptive equipment (cane, walker) within reach 19. Request patient customer account representative bring adaptive equipment/mobility aids from home or obtain and provide as needed 20. Consult pharmacy regarding effects of med's affecting mobility, cognition, and alternatives 21. Obtain physician order for PT if risk factors associated with mobility are present 22. Obtain physician order for OT as appropriate 23. Utilize diversional activities 24. Educate patient and patient customer account representative how to maintain a safe environment during visitationtimes (notify nurse prior to leaving bedside) 25. Consider appropriateness of medical or non-bilingual medical assistant 26. Set up voiding schedule as appropriate (every 2 hours) Outcome: Progressing Note: Evaluation of progress towards goal: Safety measures initiated/maintained. Pt remains safe from harm/injury/falls. Pt isupervised with transfers and ambulation. Gait steady with walker. Pt usescall light if needing assistance. Continue to monitor. Problem: Hemodynamic Status Goal: Maintains optimal cardiac output and hemodynamic stability Description: Patient's goal is: INTERVENTIONS 1. Assess and monitor patient's heart rate, rhythm, respiratory rate, peripheral pulses, capillary refill, color, body temperature, intake and output 2. Monitor labs and diagnostic testing 3. Observe for signs of chest pain (note location, duration, severity, radiation and associated symptoms such as diaphoresis, nausea, indigestion) 4. Monitor for signs and symptoms of heart failure (i.e. shortness of breath, edema of feet/ankles/legs, rapid irregular heart rate, coughing, wheezing, white/pink blood tinged sputum, sudden weight gain, chest pain) 5. Plan activities to conserve energy 6. Monitor for signs and symptoms of bleeding Outcome: Progressing Note: Evaluation of progress towards goal: stable Problem: Excessive Fluid Volume Goal: Fluid and electrolyte balance are achieved/maintained Description: INTERVENTIONS 1. Monitor vitals signs oxygen saturation, respiratory status to include rate, depth, effort, and lung sounds, ) urine color, labs, edema, jugular venous distention, and mental status 2. Monitor patient's weight 3. Monitor intake and output 4. Elevate head of bed 30 degrees 5. Turn patient 6. Monitor low sodium and fluid restriction diet per physician order 7. Collaborate with interdisciplinary team and initiate plan and interventions as ordered Outcome: Progressing Note: Evaluation of progress towards goal: within normal limits Problem: Inadequate Gas Exchange Goal: Patient is adequately oxygenated and ventilation is improved Description: Patient's goal is: INTERVENTIONS 1. Monitor vital signs, oxygen saturation, respiratory status to include rate, depth, effort, lung sounds, mental status, cyanosis, and labs (ABGs) 2. Administer oxygen as indicated 3. Position patient to optimize gas exchange 4. Instruct patient to turn, cough, and deep breathe; encourage incentive spirometer if indicated 5. Collaborate with Respiratory Therapy for inhaled medication and therapeutic adjuncts 6. Assess skin when indicated 7. Coordinate care and interventions to conserve energy 8. Educate and offer resources for tobacco cessation, if indicated Outcome: Progressing Flowsheets (Taken 10/24/2023 [id number]) Chest Assessment: Chest expansion symmetrical Note: Evaluation of progress towards goal: diminished breath sounds Problem: Activity Intolerance/Impaired Mobility Goal: Mobility/activity is maintained at optimum level for patient Description: Patient's goal is: INTERVENTIONS 1. Assess and monitor patient barriers to mobility and need for assistive/adaptive devices 2. Assess patient's emotional response to limitations 3. Collaborate with interdisciplinary teams and initiate plans and interventions as ordered 4. Encourage independent activity per tolerance 5. Maintain proper body alignment 6. Perform active/passive ROM as tolerated/ordered 7. Coordinate activities to conserve energy 8. Reposition patient 9. Ensure adequate rest/sleep time Outcome: Progressing Note: Evaluation of progress towards goal: pt able to walk to and from bathroom using walker Problem: Nutrition Goal: Patient's nutritional intake is adequate Description: Patient's goal is: INTERVENTIONS 1. Assess and monitor food intake and supplements, patient food preferences, nausea, vomiting, labs, oral cavity (gums, teeth, tongue, mucosa), proper denture fit, and cultural beliefs 2. Monitor for signs of hypoglycemia and hyperglycemia 3. Collaborate with interdisciplinary team and initiate plan and interventions as ordered 4. Monitor patient's weight 5. Assist patient with meals/food selection 6. Assist patient with eating 7. Allow adequate time for meals 8. Provide pleasant environment during mealtime 9. Increase social contact during mealtimes 10. Plan activities to conserve energy 11. Encourage/perform oral hygiene as appropriate 12. Encourage patient to take dietary supplement as ordered 13. Collaborate with clinical court monitor 14. Include patient/ patient's customer account representative in decisions related to nutrition Outcome: Progressing Note: Evaluation of progress towards goal: adequate Problem: Readmission Risk Reduction Goal: Readmission Risk Assessment Description: Utilize readmission risk score in the development of discharge plan INTERVENTIONS: 1. Discuss patient's risk of readmission at multidisciplinary discharge transition rounds. 2. Comprehensive assessment of patient's risk of readmission (functional, psychosocial, cognitive). 3. Collaborate with patient / caregiver to identify needs. 4. Handoff to next level of care provider (home health care coordinator, PCP, home care). 5. Complete follow up phone call within 72 hours. Outcome: Progressing Note: Evaluation of progress towards goal: Goal: Discharge Medication Plan Description: Develop a plan to ensure that medications are obtained at the time of discharge INTERVENTIONS: 1. Utilize outpatient pharmacy to deliver medications to patient prior to discharge, where available. 2. Ensure that prescriptions are sent to the patient's pharmacy of choice prior to patient leaving the hospital. If possible, confirm authorizations and co-pays and communicate to patient. 3. During discharge follow-up phone call, confirm that prescriptions have been filled. Outcome: Progressing Note: Evaluation of progress towards goal: Goal: Follow-Up Appointments Description: Schedule patient-centric follow-up appointments prior to discharge INTERVENTIONS: 1. Identify recommended / appropriate timeframes for follow-up. 2. Discuss transportation needs and scheduling preferences with patient. 3. Verify that all follow-up appointments are scheduled prior to discharge. Outcome: Progressing Note: Evaluation of progress towards goal: Goal: Discharge Medication Reconciliation Description: Review discharge medication reconciliation for accuracy INTERVENTIONS: 1. Include last dose date / time on the discharge medication list. 2. Utilize available resources to identify and address issues. 3. Consider use of a Discharge Time-Out or Discharge Final Check. 4. Refer to homecare, as appropriate, for home medication review. Outcome: Progressing Note: Evaluation of progress towards goal: Goal: Discharge Instructions Description: Provide accurate and complete discharge instructions, taking into account health literacy of the patient INTERVENTIONS: 1. Assess patient's learning needs including health literacy. 2. Provide disease-specific education as appropriate. 3. Consider use of teach-back to verify patient / caregiver understanding. 4. Verify understanding of discharge instructions. 5. Consider use of a Discharge Time-Out or Discharge Final-Check. Outcome: Progressing Note: Evaluation of progress towards goal: Additional Comments: SNADEC [id number] Progress note* PT/OT/RESEARCH TEST ENGINE OPERATOR - Ingrid Torres PT - 10/24/2023 10:02 AM EDT Physical Therapy (P) CANCEL - Deferred (Pt c/o 09/30 back pain and still awaiting possible medical clearance for kyphoplasty surgery. Agreed to HOLD today.) [facility] [id number] Plan of care note* Plan of Care - Kianna Fonseca RN - 10/24/2023 6:27 AM EDT Problem: Pain Goal: Patient goal is pain score less than 4, able to rest, and participant in treatment plan as appropriate Description: INTERVENTIONS: 1. Encourage patient or legal customer account representative to report early pain and ask for pain medicine when needed 2. Assess pain using appropriate pain scale and include the scale used when documenting 3. Administer analgesics based on type and severity of pain and evaluate response within appropriate time frame 4. Implement non-pharmacological measures as appropriate and evaluate response 5. Consider cultural and social influences on pain and pain management 6. Notify LIP if interventions ineffective or patient reports new pain 7. Monitor vital signs including pulse ox, end-tidal CO2 based on pain intervention 8. Reassess pain per policy 9. Teach patient or legal customer account representative interventions for comforting Outcome: Progressing Note: Evaluation of progress towards goal: Pt able to report pain according to 0/10 pain scale. Medicating patient for pain per orders. Continue to monitor. Problem: Safety Goal: Patient will be injury free during hospitalization Description: INTERVENTIONS: 1. Assess patient's risk for falls and implement fall prevention plan of care per policy 2. Provide and maintain a safe environment 3. Proper use of double Identifiers 4. Medication administration using the 5 rights 5. Hand hygiene 6. Specimens are labeled at the bedside 7. Instruct patient/ patient customer account representative about use of safety devices 8. Include patient/ patient customer account representative in decisions related to safety Outcome: Progressing Note: Evaluation of progress towards goal: Safety measures initiated/maintained. Pt remains safe from harm/injury/falls. Continue to monitor. Problem: Infection Goal: Absence of infection during hospitalization Description: Interventions: 1. Assess and monitor for signs and symptoms of infection 2. Monitor lab/diagnostic results 3. Monitor all insertion sites i.e., indwelling lines, tubes and drains 4. Monitor endotracheal (as able) and nasal secretions for changes in amount and color 5. Administer medications as ordered 6. Instruct and encourage patient and family to use good hand hygiene technique 7. Identify and instruct patient/patient customer account representative in use of appropriate isolation precautionsfor identified infection/symptoms 8. Provide and discuss with patient/patient customer account representative on educational MDRO sheet 9. Encourage and monitor nutritional status daily and consult court monitor if indicated 10. Implement neutropenic guidelines as needed 11. Review exposure to history of communicable disease and recent travel history on admission 12. Encourage annual influenza vaccine 13. Encourage pneumonia vaccine Outcome: Progressing Note: Evaluation of progress towards goal: Patient VS WNL, remains afebrile for shift. Continue to monitor. [employer] / [id number] Progress note* PT/OT/RESEARCH TEST ENGINE OPERATOR - Ingrid Torres, PT - 10/23/2023 1:18 PM EDT Physical Therapy Evaluation Discharge Recommendations PT Recommendations[facility] Comments: Pt will benefit from skilled PT to increase pt's independence and safety with transfers and gait prior to discharge home. Therapy Plan Need for skilled Physical Therapy to address deficits in functional mobility due to a status decline resulting from hospitalization s/p fall.Pt is dx with Pulmonary embolism, on Heparin drip > 24 hrs at PT eval, and compression fx T12. Pt is awaiting medical clearance for kyphoplasty surgery. Per RN report, surgery is delayed due to multiple medical comorbidities / awaiting complex medical clearance. Pt is a 73 yo man who presented to the ED at [facility] d/t SOB and lower back pain after a fall. Pt fell to the ground at home. Pt has a prior h/o COPD and home O2 use. Elevated D-dimer at admission. Lumbar X-ray indicates T12 compression fx. Pulmonary perfusion scan showing a large perfusion defect involving majority of left mid/lower lung. Pt was transferred to [facility] 10/20/23. Per DR. Man's note 10/22/23, Surgeon recommends kyphoplasty surgery and cardiology has cleared patient as high-risk. Per RN, pt is awaiting further medical clearance from anesthesiology. Pt cleared for PT evaluation per RN. Patient was in the bathroom upon my entry. He was assisted to stand from the toilet and amb back tobed, assisted with repositioning. Pt c/o antalgic mobility. PT will continue to follow and tx with caution. 6 Clicks: Basic Mobility Turning from your back to your side while in a flat bed without using bed rails?: A little Moving from lying on your back to sitting on side of flat bed without using bed rails?: A little Moving to and from bed to a chair (including w/c)?: A little Standing up from a chair using your arms (e.g. w/c or bedside chair)?: A little To walk in hospital room?: A little Climbing 3-5 steps with a railing?: Total Scoring 6 Clicks: Basic Mobility Raw Score: 16 [facility] G Code Modifier: CK Past Medical History: Diagnosis Date Acute coronary syndrome [place] Anxiety disorder Chronic back pain Chronic obstructive asthma with exacerbation [place] COPD (chronic obstructive pulmonary disease) [place] Diabetes mellitus type 2, controlled [place] Essential hypertension Folate deficiency anemia Heart failure [place] Megaloblastic anemia VT (myocardial infarction) [place] 06/2023 Muscle weakness (generalized) Myocardial infarct [place] Obesity Obstructive sleep apnea SARAH (obstructive sleep apnea) Pancytopenia [place] Presence of coronary artery bypass graft stent Shock [place] 10/05/2023 Supplemental oxygen dependent Past Surgical History: Procedure Laterality Date CARDIAC SURGERY X2 PT Treatment/Interventions: Functional transfer training, LE strengthening/ROM, Balance, Bed mobility, Gait training, Endurance training PT Frequency: 4-5days/week PT Duration: 10 Patient Response to Treatment: Tolerated evaluation without adverse reaction Assessment Patient Assessment Therapy Problem List: Decreased balance, Decreased mobility, Decreased LE strength, Decreased endurance Patient Response to Treatment: Tolerated evaluation without adverse reaction Mood/Affect: Anxious Rehab Prognosis: Good, With continued PT status post acute discharge Visit RN Communication: Yes Medical Record Reviewed: Yes PT Type of Visit: Evaluation Precautions Activity: early mobility guidelines Equipment: RW Telemetry/Lawn Mower Operator: Yes Oxygen Order : 2L Other: (S) PE (on Heparin drip at IE), Cardiac precautions. Potential surigcal candidate for Kyphoplasty (Mobilize patient gently, as tolerated. Caution with exercise. Pt is awaiting medical clearance for kyphoplasty due to mutiple medical comorbidities.) Pain Assessment Pain Assessment: 0-10 Pain Score: 9 Pain Type: Acute pain Pain Location: Back Pain Descriptors: Aching, Sharp Pain Frequency: Constant/continuous Pain Intervention(s): Repositioned (pt assisted to amb toilet to bed and get back in bed) Response to Interventions: Pain unchanged Home Living Type of Home: Trailer Home Layout: One level, Stairs to enter with rails Stairs to Enter: 4 Hand Rails: Bilateral Stairs in Home: 0 Bathroom Shower/Tub: Tub/shower unit Bathroom Equipment: Grab bars around toilet, Grab bars in shower Bathroom Accessibility: Accessible Home Equipment: Rolling walker, 4 Wheeled walker, Cane, Home oxygen Other : Pt is normally on 2L O2 at home Prior Function Lives With: Alone Level of Mobility: Independent with ADLs and functional transfers or gait Other: Pt is normally ambulatory with a RW at home. On 2L O2 continuous. Hearing / Speech / Vision Hearing: Within Functional Limits Speech: Within Functional Limits Current Vision: Wears glasses only for reading Cognition Orientation Level: Oriented X4 Sensation Overall Sensation Status: Within Functional Limits Bed Mobility Rolling: Modified independent (c/o back pain) Supine to Sit: Min assist Sit to Supine: Mod assist (assist to lift LE's up into the bed.) Other: Antalgic bed mobility. Transfers Sit to Stand: Min assist Stand to Sit: Contact guard assist Toilet Transfers: Min assist Other: antalgic transfers Gait Base of Support: Wide Pattern: Decreased ramin (forward flexed posture with UE weight bearing on the walker) Gait Assistance: Contact guard assist Assistive Device: Rolling walker Other: Pt in bathroom upon my arrival. After BM, I assisted the pt to stand, complete perineal cleaning, and amb back to bed. Balance Sitting Balance: Static: Good Sitting Balance: Dynamic: Fair Standing Balance: Static: Fair Standing Balance: Dynamic: Fair (fair-) RUE Assessment: Within Functional Limits LUE Assessment: Within Functional Limits RLE Assessment: Exceptions to WFL RLE Strength RLE Overall Strength: Deficits (anti-gravity strength, but increased back pain with LE AROM) LLE Assessment: Exceptions to WFL LLE Strength LLE Overall Strength: Deficits (anti-gravity strength, but increased back pain with LE AROM) Activity Tolerance Endurance: Tolerates <30 minutes activity WITHOUT vital sign changes Other: On 2L O2. Becomes easily SOB with activity. Plan Physical Therapy Care Plan Physical Therapy Care Plan (Active) Template: PT - Physical Therapy Problem: Activity Tolerance Dates: Start: 10/23/23 Disciplines: PT Goal: Tolerate 30 minutes of activity WITH rest breaks Dates: Start: 10/23/23 Expected End: 10/31/23 Description: Goal Description: Pt will tolerate gentle supine and seated LE ex's, mobility with rest breaks to increase activity tolerance for home mobility. Disciplines: PT Problem: Bed Mobility Dates: Start: 10/23/23 Disciplines: PT Goal: Patient will perform bed mobility with Supervision Dates: Start: 10/23/23 Expected End: 10/31/23 Description: Goal Description: Disciplines: PT Problem: Gait Dates: Start: 10/23/23 Disciplines: PT Goal: Patient will perform gait with Contact Guard Dates: Start: 10/23/23 Expected End: 10/31/23 Description: With a RW x 50_feet, CGA to allow household mobility Goal Description: Disciplines: PT Problem: Standing Balance Dates: Start: 10/23/23 Disciplines: PT Goal: Improve balance to good Dates: Start: 10/23/23 Expected End: 10/31/23 Description: Static: Pt to demo good static standing balance with UE support on DME Disciplines: PT Problem: Strength Dates: Start: 10/23/23 Disciplines: PT Goal: Improve strength Dates: Start: 10/23/23 Expected End: 10/31/23 Description: Of extremity/ location: increase strength LE's to 4/5 To facilitate: increased ease with transfers and gait Disciplines: PT Problem: Transfers Dates: Start: 10/23/23 Disciplines: PT Goal: Patient will perform transfers with Stand By Assist Dates: Start: 10/23/23 Expected End: 10/31/23 Description: Goal Description: Disciplines: PT Physical Therapy Care Plan (Resolved) There are no resolved problems. Principal Problem: T12 compression fracture (CMS-HCC) Active Problems: Benign essential hypertension Chronic diastolic congestive [place] COPD (chronic obstructive pulmonary disease) [place] Dyslipidemia Type 2 diabetes mellitus with hyperglycemia, without long-term current use of insulin [place] [employer] [facility] [id number] Plan of care note* Plan of Care - Erma Spring RN - 10/23/2023 10:22 AM EDT Problem: Pain Goal: Patient goal is pain score less than 4, able to rest, and participant in treatment plan as appropriate Description: INTERVENTIONS: 1. Encourage patient or legal customer account representative to report early pain and ask for pain medicine when needed 2. Assess pain using appropriate pain scale and include the scale used when documenting 3. Administer analgesics based on type and severity of pain and evaluate response within appropriate time frame 4. Implement non-pharmacological measures as appropriate and evaluate response 5. Consider cultural and social influences on pain and pain management 6. Notify LIP if interventions ineffective or patient reports new pain 7. Monitor vital signs including pulse ox, end-tidal CO2 based on pain intervention 8. Reassess pain per policy 9. Teach patient or legal customer account representative interventions for comforting Outcome: Progressing Note: Evaluation of progress towards goal: patient understands pain scale. Patient knows to call out when needing pain medication. Problem: Safety Goal: Patient will be injury free during hospitalization Description: INTERVENTIONS: 1. Assess patient's risk for falls and implement fall prevention plan of care per policy 2. Provide and maintain a safe environment 3. Proper use of double Identifiers 4. Medication administration using the 5 rights 5. Hand hygiene 6. Specimens are labeled at the bedside 7. Instruct patient/ patient customer account representative about use of safety devices 8. Include patient/ patient customer account representative in decisions related to safety Outcome: Progressing Note: Evaluation of progress towards goal: patient calls out for help with walking for his safety due to recent fall. Patient knows to use call light when needing other help as well. [employer] [facility] [id number] Plan of care note* Plan of Care - Kianna Fonseca RN - 10/23/2023 5:13 AM EDT Problem: Pain Goal: Patient goal is pain score less than 4, able to rest, and participant in treatment plan as appropriate Description: INTERVENTIONS: 1. Encourage patient or legal customer account representative to report early pain and ask for pain medicine when needed 2. Assess pain using appropriate pain scale and include the scale used when documenting 3. Administer analgesics based on type and severity of pain and evaluate response within appropriate time frame 4. Implement non-pharmacological measures as appropriate and evaluate response 5. Consider cultural and social influences on pain and pain management 6. Notify LIP if interventions ineffective or patient reports new pain 7. Monitor vital signs including pulse ox, end-tidal CO2 based on pain intervention 8. Reassess pain per policy 9. Teach patient or legal customer account representative interventions for comforting Outcome: Progressing Note: Evaluation of progress towards goal: Pt able to report pain according to 0/10 pain scale. Medicating patient for pain per orders. Continue to monitor. Problem: Safety Goal: Patient will be injury free during hospitalization Description: INTERVENTIONS: 1. Assess patient's risk for falls and implement fall prevention plan of care per policy 2. Provide and maintain a safe environment 3. Proper use of double Identifiers 4. Medication administration using the 5 rights 5. Hand hygiene 6. Specimens are labeled at the bedside 7. Instruct patient/ patient customer account representative about use of safety devices 8. Include patient/ patient customer account representative in decisions related to safety Outcome: Progressing Note: Evaluation of progress towards goal: Safety measures initiated/maintained. Pt remains safe from harm/injury/falls. Continue to monitor. Problem: Infection Goal: Absence of infection during hospitalization Description: Interventions: 1. Assess and monitor for signs and symptoms of infection 2. Monitor lab/diagnostic results 3. Monitor all insertion sites i.e., indwelling lines, tubes and drains 4. Monitor endotracheal (as able) and nasal secretions for changes in amount and color 5. Administer medications as ordered 6. Instruct and encourage patient and family to use good hand hygiene technique 7. Identify and instruct patient/patient customer account representative in use of appropriate isolation precautionsfor identified infection/symptoms 8. Provide and discuss with patient/patient customer account representative on educational MDRO sheet 9. Encourage and monitor nutritional status daily and consult court monitor if indicated 10. Implement neutropenic guidelines as needed 11. Review exposure to history of communicable disease and recent travel history on admission 12. Encourage annual influenza vaccine 13. Encourage pneumonia vaccine Outcome: Progressing Note: Evaluation of progress towards goal: Patient VS WNL, remains afebrile for shift. Continue to monitor. [facility]08-31-2024 Plan of care note* Plan of Care - Stephenie Suárez RN - 10/22/2023 5:16 PM EDT Problem: Pain Goal: Patient goal is pain score less than 4, able to rest, and participant in treatment plan as appropriate Description: INTERVENTIONS: 1. Encourage patient or legal customer account representative to report early pain and ask for pain medicine when needed 2. Assess pain using appropriate pain scale and include the scale used when documenting 3. Administer analgesics based on type and severity of pain and evaluate response within appropriate time frame 4. Implement non-pharmacological measures as appropriate and evaluate response 5. Consider cultural and social influences on pain and pain management 6. Notify LIP if interventions ineffective or patient reports new pain 7. Monitor vital signs including pulse ox, end-tidal CO2 based on pain intervention 8. Reassess pain per policy 9. Teach patient or legal customer account representative interventions for comforting Outcome: Progressing Note: Evaluation of progress towards goal: staying the same taking pain pill Problem: Safety Goal: Patient will be injury free during hospitalization Description: INTERVENTIONS: 1. Assess patient's risk for falls and implement fall prevention plan of care per policy 2. Provide and maintain a safe environment 3. Proper use of double Identifiers 4. Medication administration using the 5 rights 5. Hand hygiene 6. Specimens are labeled at the bedside 7. Instruct patient/ patient customer account representative about use of safety devices 8. Include patient/ patient customer account representative in decisions related to safety Outcome: Progressing Note: Evaluation of progress towards goal: calls out Problem: Infection Goal: Absence of infection during hospitalization Description: Interventions: 1. Assess and monitor for signs and symptoms of infection 2. Monitor lab/diagnostic results 3. Monitor all insertion sites i.e., indwelling lines, tubes and drains 4. Monitor endotracheal (as able) and nasal secretions for changes in amount and color 5. Administer medications as ordered 6. Instruct and encourage patient and family to use good hand hygiene technique 7. Identify and instruct patient/patient customer account representative in use of appropriate isolation precautionsfor identified infection/symptoms 8. Provide and discuss with patient/patient customer account representative on educational MDRO sheet 9. Encourage and monitor nutritional status daily and consult court monitor if indicated 10. Implement neutropenic guidelines as needed 11. Review exposure to history of communicable disease and recent travel history on admission 12. Encourage annual influenza vaccine 13. Encourage pneumonia vaccine Outcome: Progressing Note: Evaluation of progress towards goal: afebrile Problem: Knowledge Deficit Goal: Patient/patient customer account representative demonstrates understanding of disease process, treatment plan,medications, and discharge instructions Description: INTERVENTIONS 1. Complete learning assessment and assess knowledge base 2. Provide teaching at level of understanding 3. Provide teaching via preferred learning method(s) Outcome: Progressing Note: Evaluation of progress towards goal: He understands his treatment Problem: Discharge Planning Goal: Discharge to post-acute care, other facility, or home with appropriate resources Description: Patient's goal is: INTERVENTIONS 1. Conduct assessment to determine patient/family and health care team treatment goals, and need for post-acute services based on payer coverage, community resources, and patient preferences, and barriers to discharge 2. Coordinate with Social work, Care Navigation, and Utilization Review to arrange appropriate level of services according to patient's needs based on patient preference and payer coverage in collaboration with the physician and health care team 3. Address psychosocial, clinical, and financial barriers to discharge as identified in assessment in conjunction with the patient/family and health care team 4. Consult appropriate ancillary services (i.e.. PT/OT/ST, etc) as needed 5. Communicate with and update the patient/family, physician, and health care team regarding progress on the discharge plan 6. Identify discharge learning needs (meds, wound care, etc). 7. Arrange for needed discharge transportation as appropriate Outcome: Progressing Note: Evaluation of progress towards goal: Awaiting surgery Problem: Glucose Imbalance Goal: Clinical indication of glucose balance is achieved Description: Patient's goal is: INTERVENTIONS 1. Monitor blood glucose levels as ordered 2. Administer medications as ordered 3. Notify physician of ineffective treatment plan Outcome: Progressing Note: Evaluation of progress towards goal: Checking glucose levels Problem: Hemodynamic Status Goal: Maintains optimal cardiac output and hemodynamic stability Description: Patient's goal is: INTERVENTIONS 1. Assess and monitor patient's heart rate, rhythm, respiratory rate, peripheral pulses, capillary refill, color, body temperature, intake and output 2. Monitor labs and diagnostic testing 3. Observe for signs of chest pain (note location, duration, severity, radiation and associated symptoms such as diaphoresis, nausea, indigestion) 4. Monitor for signs and symptoms of heart failure (i.e. shortness of breath, edema of feet/ankles/legs, rapid irregular heart rate, coughing, wheezing, white/pink blood tinged sputum, sudden weight gain, chest pain) 5. Plan activities to conserve energy 6. Monitor for signs and symptoms of bleeding Outcome: Progressing Note: Evaluation of progress towards goal: Stable Additional Comments: [facility]08-31-2024 Progress note* PT/OT/RESEARCH TEST ENGINE OPERATOR - Ginger Lorenzo, PT - 10/22/2023 11:25 AM EDT Physical Therapy CANCEL - Refusal (pt refusing PT due to back pain. PT offered bed level activity but pt continued to refuse. Pt stated he is not getting up until he has back surgery.) [facility]08-31-2024 Plan of care note* Plan of Care - Ivan Kenney RN - 10/22/2023 2:12 AM EDT Problem: Pain Goal: Patient goal is pain score less than 4, able to rest, and participant in treatment plan as appropriate Description: INTERVENTIONS: 1. Encourage patient or legal customer account representative to report early pain and ask for pain medicine when needed 2. Assess pain using appropriate pain scale and include the scale used when documenting 3. Administer analgesics based on type and severity of pain and evaluate response within appropriate time frame 4. Implement non-pharmacological measures as appropriate and evaluate response 5. Consider cultural and social influences on pain and pain management 6. Notify LIP if interventions ineffective or patient reports new pain 7. Monitor vital signs including pulse ox, end-tidal CO2 based on pain intervention 8. Reassess pain per policy 9. Teach patient or legal customer account representative interventions for comforting Outcome: Progressing Note: Evaluation of progress towards goal: pt medicated for back pain as needed, effective, rest and reposition for comfort cont, await surgical intervention Problem: Safety Goal: Patient will be injury free during hospitalization Description: INTERVENTIONS: 1. Assess patient's risk for falls and implement fall prevention plan of care per policy 2. Provide and maintain a safe environment 3. Proper use of double Identifiers 4. Medication administration using the 5 rights 5. Hand hygiene 6. Specimens are labeled at the bedside 7. Instruct patient/ patient customer account representative about use of safety devices 8. Include patient/ patient customer account representative in decisions related to safety Outcome: Progressing Note: Evaluation of progress towards goal: pt remains safe, free from falls or injury, call light within reach, bed alarm on, hourly rounding to meet care needs cont Problem: Knowledge Deficit Goal: Patient/patient customer account representative demonstrates understanding of disease process, treatment plan,medications, and discharge instructions Description: INTERVENTIONS 1. Complete learning assessment and assess knowledge base 2. Provide teaching at level of understanding 3. Provide teaching via preferred learning method(s) Outcome: Progressing Note: Evaluation of progress towards goal: pt updated on POC, cont to educate and update as needed [facility]08-30-2024 Plan of care note* Plan of Care - Natalie Montelongo RN - 10/21/2023 6:27 PM EDT Problem: Pain Goal: Patient goal is pain score less than 4, able to rest, and participant in treatment plan as appropriate Description: INTERVENTIONS: 1. Encourage patient or legal customer account representative to report early pain and ask for pain medicine when needed 2. Assess pain using appropriate pain scale and include the scale used when documenting 3. Administer analgesics based on type and severity of pain and evaluate response within appropriate time frame 4. Implement non-pharmacological measures as appropriate and evaluate response 5. Consider cultural and social influences on pain and pain management 6. Notify LIP if interventions ineffective or patient reports new pain 7. Monitor vital signs including pulse ox, end-tidal CO2 based on pain intervention 8. Reassess pain per policy 9. Teach patient or legal customer account representative interventions for comforting Outcome: Progressing Note: Evaluation of progress towards goal: Pt able to report pain according to 0/10 pain scale. Medicating patient for pain per orders. Continue to monitor. Problem: Safety Goal: Patient will be injury free during hospitalization Description: INTERVENTIONS: 1. Assess patient's risk for falls and implement fall prevention plan of care per policy 2. Provide and maintain a safe environment 3. Proper use of double Identifiers 4. Medication administration using the 5 rights 5. Hand hygiene 6. Specimens are labeled at the bedside 7. Instruct patient/ patient customer account representative about use of safety devices 8. Include patient/ patient customer account representative in decisions related to safety Outcome: Progressing Note: Evaluation of progress towards goal: Safety measures initiated/maintained. Pt remains safe from harm/injury/falls. Continue to monitor. Problem: Infection Goal: Absence of infection during hospitalization Description: Interventions: 1. Assess and monitor for signs and symptoms of infection 2. Monitor lab/diagnostic results 3. Monitor all insertion sites i.e., indwelling lines, tubes and drains 4. Monitor endotracheal (as able) and nasal secretions for changes in amount and color 5. Administer medications as ordered 6. Instruct and encourage patient and family to use good hand hygiene technique 7. Identify and instruct patient/patient customer account representative in use of appropriate isolation precautionsfor identified infection/symptoms 8. Provide and discuss with patient/patient customer account representative on educational MDRO sheet 9. Encourage and monitor nutritional status daily and consult court monitor if indicated 10. Implement neutropenic guidelines as needed 11. Review exposure to history of communicable disease and recent travel history on admission 12. Encourage annual influenza vaccine 13. Encourage pneumonia vaccine Outcome: Progressing Note: Evaluation of progress towards goal: no fever. Continue to monitor. Problem: Knowledge Deficit Goal: Patient/patient customer account representative demonstrates understanding of disease process, treatment plan,medications, and discharge instructions Description: INTERVENTIONS 1. Complete learning assessment and assess knowledge base 2. Provide teaching at level of understanding 3. Provide teaching via preferred learning method(s) Outcome: Progressing Note: Evaluation of progress towards goal: plan of care discussed with pt Problem: Discharge Planning Goal: Discharge to post-acute care, other facility, or home with appropriate resources Description: Patient's goal is: INTERVENTIONS 1. Conduct assessment to determine patient/family and health care team treatment goals, and need for post-acute services based on payer coverage, community resources, and patient preferences, and barriers to discharge 2. Coordinate with Social work, Care Navigation, and Utilization Review to arrange appropriate level of services according to patient's needs based on patient preference and payer coverage in collaboration with the physician and health care team 3. Address psychosocial, clinical, and financial barriers to discharge as identified in assessment in conjunction with the patient/family and health care team 4. Consult appropriate ancillary services (i.e.. PT/OT/ST, etc) as needed 5. Communicate with and update the patient/family, physician, and health care team regarding progress on the discharge plan 6. Identify discharge learning needs (meds, wound care, etc). 7. Arrange for needed discharge transportation as appropriate Outcome: Progressing Note: Evaluation of progress towards goal: pt currently lives at home alone. Therapy ordered to make recommendations but pt declined today. Problem: Glucose Imbalance Goal: Clinical indication of glucose balance is achieved Description: Patient's goal is: INTERVENTIONS 1. Monitor blood glucose levels as ordered 2. Administer medications as ordered 3. Notify physician of ineffective treatment plan Outcome: Progressing Note: Evaluation of progress towards goal: no insulin coverage needed Goal: Patient's discharge needs are met Description: Patient's goal is: INTERVENTIONS 1. Assess patient for self-management skills 2. Encourage participation in diabetes management 3. Identify potential discharge barriers on admission and throughout hospital stay 4. Involve patient/S.O. in discharge planning process 5. Communicate referral to music educator as appropriate 6. Communicate referral to court monitor as appropriate 7. Collaborate with case management/secondary social studies teacher for discharge needs Outcome: Progressing Note: Evaluation of progress towards goal: Problem: Moderate - High Risk Fall Score Description: Bell Fall Score of =/> 25 or indicated by [facility] Assessment Goal: Patient should be free from fall Description: Interventions: 1. [place] to environment 2. Hourly rounds addressing the 4 P's (Pain, Positioning, Possessions, Potty) 3. Clear area of hazards (spills, clutter, electrical cords, unnecessary equipment) 4. Place equipment (bed & TV controls, call light, phone, urinal) within reach 5. Encourage patient to wear glasses and hearing aides as appropriate 6. Maintain bed in lowest position 7. Lock wheels on bed/wheelchair 8. Provide adequate lighting, including night light 9. Assess need for additional bedding, food/fluids, pain med's prior to sleep/routinely 10. Provide gripper slippers or personal non-skid footwear 11. Teach patient and patient customer account representative to maintain environment for safety and engage in all aspects of fall prevention program 12. Remind patient to call for help before getting out of bed 13. Initiate bed/chair/exit alarms supportive devices as appropriate, (chair wedge, no-skid floor mat, raised edge mattress, hip protectors) 14. Locate patient bed assignment for optimal visualization 15. Evaluate and identify Safe Patient Handling Equipment needs 16. Provide supervision when out of bed or chair 17. Utilize gait belt as needed to assist with ambulation 18. Place adaptive equipment (cane, walker) within reach 19. Request patient customer account representative bring adaptive equipment/mobility aids from home or obtain and provide as needed 20. Consult pharmacy regarding effects of med's affecting mobility, cognition, and alternatives 21. Obtain physician order for PT if risk factors associated with mobility are present 22. Obtain physician order for OT as appropriate 23. Utilize diversional activities 24. Educate patient and patient customer account representative how to maintain a safe environment during visitationtimes (notify nurse prior to leaving bedside) 25. Consider appropriateness of medical or non-bilingual medical assistant 26. Set up voiding schedule as appropriate (every 2 hours) Outcome: Progressing Note: Evaluation of progress towards goal: Safety measures initiated/maintained. Pt remains safe from harm/injury/falls. Continue to monitor. Problem: Hemodynamic Status Goal: Maintains optimal cardiac output and hemodynamic stability Description: Patient's goal is: INTERVENTIONS 1. Assess and monitor patient's heart rate, rhythm, respiratory rate, peripheral pulses, capillary refill, color, body temperature, intake and output 2. Monitor labs and diagnostic testing 3. Observe for signs of chest pain (note location, duration, severity, radiation and associated symptoms such as diaphoresis, nausea, indigestion) 4. Monitor for signs and symptoms of heart failure (i.e. shortness of breath, edema of feet/ankles/legs, rapid irregular heart rate, coughing, wheezing, white/pink blood tinged sputum, sudden weight gain, chest pain) 5. Plan activities to conserve energy 6. Monitor for signs and symptoms of bleeding Outcome: Progressing Note: Evaluation of progress towards goal: vital signs stable Problem: Excessive Fluid Volume Goal: Fluid and electrolyte balance are achieved/maintained Description: INTERVENTIONS 1. Monitor vitals signs oxygen saturation, respiratory status to include rate, depth, effort, and lung sounds, ) urine color, labs, edema, jugular venous distention, and mental status 2. Monitor patient's weight 3. Monitor intake and output 4. Elevate head of bed 30 degrees 5. Turn patient 6. Monitor low sodium and fluid restriction diet per physician order 7. Collaborate with interdisciplinary team and initiate plan and interventions as ordered Outcome: Progressing Note: Evaluation of progress towards goal: continue to monitor Problem: Inadequate Gas Exchange Goal: Patient is adequately oxygenated and ventilation is improved Description: Patient's goal is: INTERVENTIONS 1. Monitor vital signs, oxygen saturation, respiratory status to include rate, depth, effort, lung sounds, mental status, cyanosis, and labs (ABGs) 2. Administer oxygen as indicated 3. Position patient to optimize gas exchange 4. Instruct patient to turn, cough, and deep breathe; encourage incentive spirometer if indicated 5. Collaborate with Respiratory Therapy for inhaled medication and therapeutic adjuncts 6. Assess skin when indicated 7. Coordinate care and interventions to conserve energy 8. Educate and offer resources for tobacco cessation, if indicated Outcome: Progressing Flowsheets (Taken 10/21/2023 [id number]) Chest Assessment: Chest expansion symmetrical Trachea midline Note: Evaluation of progress towards goal: diminished Problem: Activity Intolerance/Impaired Mobility Goal: Mobility/activity is maintained at optimum level for patient Description: Patient's goal is: INTERVENTIONS 1. Assess and monitor patient barriers to mobility and need for assistive/adaptive devices 2. Assess patient's emotional response to limitations 3. Collaborate with interdisciplinary teams and initiate plans and interventions as ordered 4. Encourage independent activity per tolerance 5. Maintain proper body alignment 6. Perform active/passive ROM as tolerated/ordered 7. Coordinate activities to conserve energy 8. Reposition patient 9. Ensure adequate rest/sleep time Outcome: Progressing Note: Evaluation of progress towards goal: due to increased back pain awaiting kyphoplasty T12 Problem: Nutrition Goal: Patient's nutritional intake is adequate Description: Patient's goal is: INTERVENTIONS 1. Assess and monitor food intake and supplements, patient food preferences, nausea, vomiting, labs, oral cavity (gums, teeth, tongue, mucosa), proper denture fit, and cultural beliefs 2. Monitor for signs of hypoglycemia and hyperglycemia 3. Collaborate with interdisciplinary team and initiate plan and interventions as ordered 4. Monitor patient's weight 5. Assist patient with meals/food selection 6. Assist patient with eating 7. Allow adequate time for meals 8. Provide pleasant environment during mealtime 9. Increase social contact during mealtimes 10. Plan activities to conserve energy 11. Encourage/perform oral hygiene as appropriate 12. Encourage patient to take dietary supplement as ordered 13. Collaborate with clinical court monitor 14. Include patient/ patient's customer account representative in decisions related to nutrition Outcome: Progressing Note: Evaluation of progress towards goal: adequate Problem: Readmission Risk Reduction Goal: Readmission Risk Assessment Description: Utilize readmission risk score in the development of discharge plan INTERVENTIONS: 1. Discuss patient's risk of readmission at multidisciplinary discharge transition rounds. 2. Comprehensive assessment of patient's risk of readmission (functional, psychosocial, cognitive). 3. Collaborate with patient / caregiver to identify needs. 4. Handoff to next level of care provider (home health care coordinator, PCP, home care). 5. Complete follow up phone call within 72 hours. Outcome: Progressing Note: Evaluation of progress towards goal: Goal: Discharge Medication Plan Description: Develop a plan to ensure that medications are obtained at the time of discharge INTERVENTIONS: 1. Utilize outpatient pharmacy to deliver medications to patient prior to discharge, where available. 2. Ensure that prescriptions are sent to the patient's pharmacy of choice prior to patient leaving the hospital. If possible, confirm authorizations and co-pays and communicate to patient. 3. During discharge follow-up phone call, confirm that prescriptions have been filled. Outcome: Progressing Note: Evaluation of progress towards goal: Goal: Follow-Up Appointments Description: Schedule patient-centric follow-up appointments prior to discharge INTERVENTIONS: 1. Identify recommended / appropriate timeframes for follow-up. 2. Discuss transportation needs and scheduling preferences with patient. 3. Verify that all follow-up appointments are scheduled prior to discharge. Outcome: Progressing Note: Evaluation of progress towards goal: Goal: Discharge Medication Reconciliation Description: Review discharge medication reconciliation for accuracy INTERVENTIONS: 1. Include last dose date / time on the discharge medication list. 2. Utilize available resources to identify and address issues. 3. Consider use of a Discharge Time-Out or Discharge Final Check. 4. Refer to homecare, as appropriate, for home medication review. Outcome: Progressing Note: Evaluation of progress towards goal: Goal: Discharge Instructions Description: Provide accurate and complete discharge instructions, taking into account health literacy of the patient INTERVENTIONS: 1. Assess patient's learning needs including health literacy. 2. Provide disease-specific education as appropriate. 3. Consider use of teach-back to verify patient / caregiver understanding. 4. Verify understanding of discharge instructions. 5. Consider use of a Discharge Time-Out or Discharge Final-Check. Outcome: Progressing Note: Evaluation of progress towards goal: Additional Comments: [facility] [id number] Progress note* PT/OT/RESEARCH TEST ENGINE OPERATOR - Иван Hirzel, Student PT - 10/21/2023 3:39 PM EDT Physical Therapy CANCEL - Refusal Pt refused therapy at this time due to too much pain in his back. PT will check back later. Associated attestation - Beulah Kohli, PT - 10/21/2023 3:45 PM EDT I have reviewed and agree with this note and education documentation for this visit. [facility] [id number] Progress note* PT/OT/RESEARCH TEST ENGINE OPERATOR - Monika Redman OT/L - 10/21/2023 3:38 PM EDT Occupational Therapy CANCEL - Refusal Patient politely refused at this time reporting his back hurts too much to move. OT to check back as able and patient willing. [facility] [id number] Progress note* Discharge Planning Note - SHERINE Lopes - 10/21/2023 1:49 PM EDT DISCHARGE PLANNING NOTE Pts POC discussed in transition rounds and per report, pt being considered for kyphoplasty procedure with therapy evaluations post procedure. At this time, pt plans on discharge home w/[facility], declines interest in SNF services. SW will follow. [facility] [id number] Progress note* Significant Event - Matt Montemayor MD - 10/21/2023 7:51 AM EDT Just received phone call from the surgeon who is okay to do kyphoplasty while on Brilinta and bloodthinners, understanding patient will be at high-risk. No absolute cardiac contraindications for the planned surgery understanding he will be at high-risk. Will follow. Thank you. Matt Montemayor MD, [id number] Plan of care note* Plan of Care - Rebecca Gil RN - 10/21/2023 4:47 AM EDT Problem: Pain Goal: Patient goal is pain score less than 4, able to rest, and participant in treatment plan as appropriate Description: INTERVENTIONS: 1. Encourage patient or legal customer account representative to report early pain and ask for pain medicine when needed 2. Assess pain using appropriate pain scale and include the scale used when documenting 3. Administer analgesics based on type and severity of pain and evaluate response within appropriate time frame 4. Implement non-pharmacological measures as appropriate and evaluate response 5. Consider cultural and social influences on pain and pain management 6. Notify LIP if interventions ineffective or patient reports new pain 7. Monitor vital signs including pulse ox, end-tidal CO2 based on pain intervention 8. Reassess pain per policy 9. Teach patient or legal customer account representative interventions for comforting Outcome: Progressing Note: Evaluation of progress towards goal: pt able to report pain using 0-10 scale, PRN medicationsadministered as ordered, continue to monitor Problem: Safety Goal: Patient will be injury free during hospitalization Description: INTERVENTIONS: 1. Assess patient's risk for falls and implement fall prevention plan of care per policy 2. Provide and maintain a safe environment 3. Proper use of double Identifiers 4. Medication administration using the 5 rights 5. Hand hygiene 6. Specimens are labeled at the bedside 7. Instruct patient/ patient customer account representative about use of safety devices 8. Include patient/ patient customer account representative in decisions related to safety Outcome: Progressing Note: Evaluation of progress towards goal: pt remains injury free this shift, continue to monitor [facility]08-29-2024 Consult note* Randall Martin MD - 10/20/2023 4:48 PM EDTAssociated Order(s): IP CONSULT TO PULMONOLOGY Images from the original note were not included. PULMONARY CONSULT Patient - Brian Mandel Age - 73 y.o. - 1950 [facility] # - [id number] Date of Admission - 10/20/2023 8:14 AM Consulting Service/Physician Consulting: Consulting Providers Provider Service Specialty Timmy Acosta DO -- Orthopedic Surgery MD Ollie Ríos Pulmonology Pulmonary Medicine Matt Montemayor MD Cardiology Cardiology Primary Care Physician: Melanie Taylor DO Reason for visit: PE Requesting Physician: DR Man History of Present Illness: 73 years old Patient presents to the emergency room on 10/20/23 with shortness of breath. The patient states that he was recently discharged from [facility] and he was home and doing fine he got up to walk to the kitchen and he was going to take a bath and he felt very short of breath and he fell to the ground. He was complaining of back pain post fall. He denies any loss of consciousness. Patient had a recent admission and was transferred from the [place] [facility] on October 08 for sepsis and hypotension. He also had acute kidney injury at that time. The patient is on home oxygen and has a history of COPD. The patient said he is on O2 at home. He had VQscan which shows high probability for PE. Review of Systems: Cough - no chest pain- no Shortness of breath - ++ fever - no Hemoptysis- no Sinus drainage, sore throat - no Abdominal pain - no Nausea, vomiting - no Diarrhea, constipation - no Swelling feet- no Rashes- no Headache - no Past Medical History: Diagnosis Date Acute coronary syndrome [place] Anxiety disorder Chronic back pain Chronic obstructive asthma with exacerbation ([facility] COPD (chronic obstructive pulmonary disease) ([facility] Diabetes mellitus type 2, controlled ([facility] Essential hypertension Folate deficiency anemia Heart failure ([facility]) Megaloblastic anemia VT (myocardial infarction) ([facility]) 06/2023 Muscle weakness (generalized) Myocardial infarct ([facility]) Obesity Obstructive sleep apnea SARAH (obstructive sleep apnea) Pancytopenia ([facility]) Presence of coronary artery bypass graft stent Shock ([facility]) 10/05/2023 Supplemental oxygen dependent Past Surgical History: Procedure Laterality Date CARDIAC SURGERY X2 Review of Systems Medications Prior to Admission Medication Sig Dispense Refill Last Dose acetaminophen (TYLENOL) 325 mg tablet Take 2 tablets (650 mg total) by mouth every 8 (eight) hours as needed for pain. Past Week albuterol (PROVENTIL,VENTOLIN) 2.5 mg /3 mL (0.083 %) nebulizer solution Inhale 3 mL (2.5 mg total)by nebulization every 6 (six) hours as needed for wheezing. Patient takes it every 2 hours Past Week amitriptyline (ELAVIL) 25 mg tablet Take 1 tablet (25 mg total) by mouth in the morning. Past Week dapagliflozin propanediol (FARXIGA) 10 mg tablet Take 1 tablet (10 mg total) by mouth in the morning. 30 tablet 0 10/19/2023 folic acid (FOLVITE) 1 mg tablet Take 1 tablet (1 mg total) by mouth in the morning. Past Week furosemide (LASIX) 20 mg tablet Take 1 tablet (20 mg total) by mouth 2 (two) times a day before meals. 30 tablet 0 10/19/2023 hydrOXYzine (ATARAX) 50 mg tablet Take 1-2 tablets (50-100 mg total) by mouth nightly as needed (sleep). Past Week melatonin (CIRCADIN) tablet Take 2 tablets (6 mg total) by mouth nightly. Past Week metFORMIN XR (GLUCOPHAGE XR) 750 mg 24 hr tablet Take 1 tablet (750 mg total) by mouth nightly. Past Week metoprolol (LOPRESSOR) 12.5 mg Take 1 split tablet (12.5 mg total) by mouth in the morning and 1 split tablet (12.5 mg total) before bedtime. Past Week PARoxetine (PAXIL) 10 mg tablet Take 1 tablet (10 mg total) by mouth every morning. 10/19/2023 simethicone (MYLICON) 80 mg chewable tablet Chew 1 tablet (80 mg total) and swallow every 6 (six) hours as needed for flatulence. Past Week simvastatin (ZOCOR) 40 mg tablet Take 1 tablet (40 mg total) by mouth nightly. 10/19/2023 ticagrelor (BRILINTA) 90 mg tablet Take 1 tablet (90 mg total) by mouth every 12 (twelve) hours. 10/19/2023 at 0800 benzonatate (TESSALON PERLES) 200 mg capsule Take 1 capsule (200 mg total) by mouth 3 (three) timesa day as needed for cough. (Patient not taking: Reported on 10/20/2023) 20 capsule 0 Past Month HYDROcodone-acetaminophen (NORCO) 5-325 mg per tablet Take 1 tablet by mouth every 6 (six) hours asneeded. (Patient not taking: Reported on 10/20/2023) Past Month nitroglycerin (NITROSTAT) 0.[address] 1 tablet (0.4 mg total) under the tongue every 5 (five) minutes as needed for chest pain. atorvastatin, 20 mg, oral, Nightly heparin (porcine), 8,000 Units, intravenous, Once insulin lispro, 2-10 Units, subcutaneous, TID with meals insulin lispro, 2-8 Units, subcutaneous, Nightly metoprolol succinate XL, 25 mg, oral, Daily sodium chloride, 3 mL, intravenous, Q12H LYNN heparin, 300-3,500 Units/hr sodium chloride 0.9 %, 20 mL/hr No Known Allergies Family History Problem Relation Age of Onset Diabetes Mother Stroke Mother Cancer Mother Heart attack Mother Heart attack Father Stroke Father Diabetes Father Cancer Father Social History Socioeconomic History Marital status: Tobacco Use Smoking status: Never Smokeless tobacco: Never Vaping Use Vaping status: Never Used Substance and Sexual Activity Alcohol use: Not Currently Comment: last drink 2003 Drug use: Never Sexual activity: Defer Social Determinants of Health Financial Resource Strain: Low Risk (07/23/2023) Overall Financial Resource Strain (CARDIA) Difficulty of Paying Living Expenses: Not hard at all Food Insecurity: No Food Insecurity (10/20/2023) Hunger Screening Food Insecurity - Worry: Never True Food Insecurity - Inability: Never True Transportation Needs: No Transportation Needs (10/20/2023) PRAPARE - Transportation Lack of Transportation (Medical): No Lack of Transportation (Non-Medical): No Physical Activity: Insufficiently Active (07/23/2023) Exercise Vital Sign Days of Exercise per Week: 2 days Minutes of Exercise per Session: 10 min Stress: Stress Concern Present (07/23/2023) [employer] [place] [employer] - Occupational Stress Questionnaire Feeling of Stress : Very much Social Connections: Socially Isolated (07/23/2023) Social Connection and Isolation Panel [NHANES] Frequency of Communication with Friends and Family: Three times a week Frequency of Social Gatherings with Friends and Family: Three times a week Attends Confucianist Services: Never Active Member of Clubs or Organizations: No Attends Club or Organization Meetings: Never Marital Status: Interpersonal Safety: Not At Risk (10/20/2023) Humiliation, Afraid, Rape, and Kick questionnaire Fear of Current or Ex-Partner: No Emotionally Abused: No Physically Abused: No Sexually Abused: No Housing Instability: Low Risk (10/20/2023) Housing Instability Housing Instability: No Temp: [36.3 C (97.4 F)-37 C (98.6 F)] 36.4 C (97.6 F) Pulse: [58-73] 65 Resp: [14-26] 18 BP: (74-123)/(34-96) 102/65 SpO2: [94 %-100 %] 100 % O2 Device: Nasal cannula O2 Flow Rate (L/min): [2 L/min] 2 L/min O2 Device: Nasal cannula PHYSICAL EXAM: GEN: Pleasant, comfortable, cooperative, NAD, O2 4L HEENT: Head atraumatic, normocephalic. NECK: Trachea midline, no Lymphadenopathy CV: S1 S2 RRR RESP: Clear to auscultation bilaterally, rhonchi - absent; crackles/ rales - absent; no accessory muscle use ABD: Soft, ND, NT, normal BS, no organomegaly EXT: No edema, no cyanosis, no erythema NEURO: no apparent sensorimotor deficits SKIN: Warm, dry, no rash Results from last 3 days Lab Units 10/20/23 1447 10/20/23 1004 10/20/23 0140 BUN mg/dL -- -- 20 CREATININE mg/dL -- -- 1.70* POTASSIUM mmol/L 3.1* -- 3.0* CO2 mmol/L -- -- 27 CHLORIDE mmol/L -- -- 95* MAGNESIUM mg/dL -- 1.2* -- AST U/L -- -- 42* ALT U/L -- -- 28 ALK PHOS U/L -- -- 105 LIPASE U/L -- -- 61* Results from last 3 days Lab Units 10/20/23 1628 INR 1.2* PROTIME sec 13.4* Results from last 3 days Lab Units 10/20/23 1628 10/20/23 0140 WBC X10E9/L -- 11.0 HEMOGLOBIN g/dL 8.8* 8.9* HEMATOCRIT % -- 26.4* PLATELETS X10E9/L 176 204 MCV fL -- 97 MCH pg -- 32.7 MCHC g/dL -- 33.8 RDW % -- 17.7* EOS ABS AUTO X10E9/L -- 0.1 Microbiology Results No results found for the last 168 hours. Glucose Results from last 7 days Lab Units 10/20/23 1059 10/20/23 0140 BEDSIDE GLUCOSE mg/dL 107* -- GLUCOSE mg/dL -- 130* No intake/output data recorded. Microbiology Results No results found for the last 168 hours. Lines/Drains Peripheral IV 10/20/23 Left Antecubital (Active) Line Status Flushed;Saline locked;Alcohol sponge cap changed 10/20/23809 Site Assessment Clean;Dry;Intact 10/20/2310 Dressing Type Occlusive;Transparent 10/20/23809 Dressing Status Clean;Dry;Intact 10/20/23 0810 Dressing Intervention Initial dressing 10/20/23143 Specimen Obtained Yes 10/20/23143 Specimen Status Sent for analysis 10/20/23143 Amount Drawn (mL) 10 mL 10/20/23143 Dressing Change Due (Non-Gauze) 10/27/23 10/20/23143 Vas venous duplex lwr bilateral Result Date: 10/20/2023 Right: Common femoral, femoral, popliteal and deep calf muscle veins are compressible without intraluminal content. Spontaneous, phasic common femoral, femoral and popliteal spectral Doppler signals.Compressible thigh superficial Great saphenous vein. Left: Common femoral, femoral, popliteal and deep calf muscle veins are compressible without intraluminal content. Spontaneous, phasic common femoral, femoral and popliteal spectral Doppler signals. Absent Great saphenous superficial vein in the thigh. General: In-patient, bedside examination. Conclusions: RIGHT: NO EVIDENCE of deep or superficial vein thrombosis of the lower extremity.LEFT: The great saphenous vein is not visualized or surgically absent in the thigh. NO EVIDENCE of deep or superficial vein thrombosis of the lower extremity. Recommendations: Any questions prior to finalization, please call the reading physician during normal business hours at the phone number beside their name. NM pulmonary perfusion scan Result Date: 10/20/2023 PERFUSION LUNG SCAN COMPARISON: None. CORRELATION: Chest radiograph 10/20/2023 HISTORY: Chest pain, shortness breath. TECHNIQUE: 5.6 mCi technetium 99m MAA injected intravenously without reported complication. Planar images of the lungs obtained in multiple projections for both ventilation and perfusion. FINDINGS: Normal heterogeneous uptake seen within the right lung. Large perfusion defect involving a majority of the left mid/lower lung. Of note, patient has evidence of moderate left pleural effusion on prior chest x-ray which may be causing significant compressive atelectasis IMPRESSION: * Large perfusion defect involving majority of the left mid/lower lung with underlying pleural effusion on the chest radiograph.. * Intermediate probability for pulmonary embolism. * A central or hilar obstructing lesion to the left lower lobe cannot be excluded in the setting. * Ventilation imaging was not performed. Approved by Resident Pavan Durbin DO on 10/20/2023 2:00 PM Kye Marcial MD have personally reviewed the image(s) and agree with and/or edited the report Fi nalized by Kye Kapadia MD on 10/20/2023 2:20 PM X-ray chest 1 view Result Date: 10/20/2023 XR CHEST 1 VW HISTORY: Shortness of breath COMPARISON: 10/11/2023 FINDINGS: Interval removal of leftneck catheter. Prior median sternotomy. Left shoulder tenodesis. Small left pleural effusion and left lower lobe airspace opacification does not appear significantly changed across multiple prior exam inations. Cardiac mediastinal silhouette appears stable and within normal limits given portable technique. IMPRESSION: * No significant interval change other than left IJ central venous catheter having been removed.. Approved by Resident: Agustin Flores MD on 10/20/2023 2:12 AM Shiv Marcial MD have personally reviewed the image(s) and agree with and/or edited the report Finalized by Shiv Pinzon MD on 10/20/2023 2:17 AM X-ray spine lumbar 2 or 3 views Result Date: 10/20/2023 Clinical history: Status post fall, back pain. Comparisons: None Findings: AP and lateral lumbar spine radiographs obtained. 5 lumbar-like vertebral bodies are present in normal alignment. There is an anterior wedge compression fracture at T12 which was not present on a CT chest 10/04/2023. The other vertebral body heights are preserved. Some changes of degenerative disc disease are present at L5-S1. No malalignment. Left lower pole renal calculi are present. Bifurcated abdominal aortic endograft and vascular calculations are present. IMPRESSION: 1. Anterior wedge compression fracture T12, newwhen compared with CT scan 10/04/2023. 2. Degenerative disc disease L5-S1. Finalized by Shiv Pinzon MD on 10/20/2023 2:15 AM Echo limited W/ contrast Result Date: 09/08/2023 Left Ventricle: Left ventricle appears normal in size. Wall thickness is normal. Systolic function is normal with an ejection fraction of 55-60%. See wall score diagram for wall motion abnormalities.Pericardium: There is pleural effusion. The study had technical difficulties. The study was difficult due to patient's body habitus and poor acoustic windows. Echo complete W/ contrast Result Date: 07/27/2023 Left Ventricle: Left ventricle appears normal in size. Systolic function is normal with an ejectionfraction of 55-60%. Right Ventricle: Systolic function is mildly reduced. Abnormal tricuspid annular plane systolic excursion. Aortic Valve: There is moderate to severe regurgitation. There is moderate to severe stenosis. The calculated aortic valve area is 0.59 cm2. The calculated aortic valve peak gradient is 68.00 mmHg. The calculated aortic valve mean gradient is 36.00 mmHg. Tricuspid Valve: There is mild to moderate regurgitation. There is no evidence of tricuspid valve stenosis. ASSESSMENT / PLAN: PE - high prob VW scan - start Heparin gtt Check ECHO Check CT chest Chronic hypoxic resp failure- baseline O2 2L Hx SARAH DW patient, RN SNADEC [id number] Consult note* Randall Martin MD - 10/20/2023 4:48 PM EDTAssociated Order(s): IP CONSULT TO PULMONOLOGY Images from the original note were not included. PULMONARY CONSULT Patient - Brian Mandel Age - 73 y.o. - 1950 [facility] # - [id number] Date of Admission - 10/20/2023 8:14 AM Consulting Service/Physician Consulting: Consulting Providers Provider Service Specialty Timmy Acosta DO -- Orthopedic Surgery MD Ollie Ríos Pulmonology Pulmonary Medicine Matt Montemayor MD Cardiology Cardiology Primary Care Physician: Melanie Taylor DO Reason for visit: PE Requesting Physician: DR Man History of Present Illness: 73 years old Patient presents to the emergency room on 10/20/23 with shortness of breath. The patient states that he was recently discharged from [facility] and he was home and doing fine he got up to walk to the kitchen and he was going to take a bath and he felt very short of breath and he fell to the ground. He was complaining of back pain post fall. He denies any loss of consciousness. Zahida terry had a recent admission and was transferred from the [place] [facility] on October 08 for sepsis and hypotension. He also had acute kidney injury at that time. The patient is on home oxygen and has a history of COPD. The patient said he is on O2 at home. He had VQscan which shows high probability for PE. Review of Systems: Cough - no chest pain- no Shortness of breath - ++ fever - no Hemoptysis- no Sinus drainage, sore throat - no Abdominal pain - no Nausea, vomiting - no Diarrhea, constipation - no Swelling feet- no Rashes- no Headache - no Past Medical History: Diagnosis Date Acute coronary syndrome ([facility] Anxiety disorder Chronic back pain Chronic obstructive asthma with exacerbation ([facility]) COPD (chronic obstructive pulmonary disease) ([facility]) Diabetes mellitus type 2, controlled ([facility]) Essential hypertension Folate deficiency anemia Heart failure ([facility]) Megaloblastic anemia VT (myocardial infarction) ([facility]) 06/2023 Muscle weakness (generalized) Myocardial infarct ([facility]) Obesity Obstructive sleep apnea SARAH (obstructive sleep apnea) Pancytopenia ([facility]) Presence of coronary artery bypass graft stent Shock ([facility]) 10/05/2023 Supplemental oxygen dependent Past Surgical History: Procedure Laterality Date CARDIAC SURGERY X2 Review of Systems Medications Prior to Admission Medication Sig Dispense Refill Last Dose acetaminophen (TYLENOL) 325 mg tablet Take 2 tablets (650 mg total) by mouth every 8 (eight) hours as needed for pain. Past Week albuterol (PROVENTIL,VENTOLIN) 2.5 mg /3 mL (0.083 %) nebulizer solution Inhale 3 mL (2.5 mg total)by nebulization every 6 (six) hours as needed for wheezing. Patient takes it every 2 hours Past Week amitriptyline (ELAVIL) 25 mg tablet Take 1 tablet (25 mg total) by mouth in the morning. Past Week dapagliflozin propanediol (FARXIGA) 10 mg tablet Take 1 tablet (10 mg total) by mouth in the morning. 30 tablet 0 10/19/2023 folic acid (FOLVITE) 1 mg tablet Take 1 tablet (1 mg total) by mouth in the morning. Past Week furosemide (LASIX) 20 mg tablet Take 1 tablet (20 mg total) by mouth 2 (two) times a day before meals. 30 tablet 0 10/19/2023 hydrOXYzine (ATARAX) 50 mg tablet Take 1-2 tablets (50-100 mg total) by mouth nightly as needed (sleep). Past Week melatonin (CIRCADIN) tablet Take 2 tablets (6 mg total) by mouth nightly. Past Week metFORMIN XR (GLUCOPHAGE XR) 750 mg 24 hr tablet Take 1 tablet (750 mg total) by mouth nightly. Past Week metoprolol (LOPRESSOR) 12.5 mg Take 1 split tablet (12.5 mg total) by mouth in the morning and 1 split tablet (12.5 mg total) before bedtime. Past Week PARoxetine (PAXIL) 10 mg tablet Take 1 tablet (10 mg total) by mouth every morning. 10/19/2023 simethicone (MYLICON) 80 mg chewable tablet Chew 1 tablet (80 mg total) and swallow every 6 (six) hours as needed for flatulence. Past Week simvastatin (ZOCOR) 40 mg tablet Take 1 tablet (40 mg total) by mouth nightly. 10/19/2023 ticagrelor (BRILINTA) 90 mg tablet Take 1 tablet (90 mg total) by mouth every 12 (twelve) hours. 10/19/2023 at 0800 benzonatate (TESSALON PERLES) 200 mg capsule Take 1 capsule (200 mg total) by mouth 3 (three) timesa day as needed for cough. (Patient not taking: Reported on 10/20/2023) 20 capsule 0 Past Month HYDROcodone-acetaminophen (NORCO) 5-325 mg per tablet Take 1 tablet by mouth every 6 (six) hours asneeded. (Patient not taking: Reported on 10/20/2023) Past Month nitroglycerin (NITROSTAT) 0.[address] 1 tablet (0.4 mg total) under the tongue every 5 (five) minutes as needed for chest pain. atorvastatin, 20 mg, oral, Nightly heparin (porcine), 8,000 Units, intravenous, Once insulin lispro, 2-10 Units, subcutaneous, TID with meals insulin lispro, 2-8 Units, subcutaneous, Nightly metoprolol succinate XL, 25 mg, oral, Daily sodium chloride, 3 mL, intravenous, Q12H LYNN heparin, 300-3,500 Units/hr sodium chloride 0.9 %, 20 mL/hr No Known Allergies Family History Problem Relation Age of Onset Diabetes Mother Stroke Mother Cancer Mother Heart attack Mother Heart attack Father Stroke Father Diabetes Father Cancer Father Social History Socioeconomic History Marital status: Tobacco Use Smoking status: Never Smokeless tobacco: Never Vaping Use Vaping status: Never Used Substance and Sexual Activity Alcohol use: Not Currently Comment: last drink 2003 Drug use: Never Sexual activity: Defer Social Determinants of Health Financial Resource Strain: Low Risk (07/23/2023) Overall Financial Resource Strain (CARDIA) Difficulty of Paying Living Expenses: Not hard at all Food Insecurity: No Food Insecurity (10/20/2023) Hunger Screening Food Insecurity - Worry: Never True Food Insecurity - Inability: Never True Transportation Needs: No Transportation Needs (10/20/2023) PRAPARE - Transportation Lack of Transportation (Medical): No Lack of Transportation (Non-Medical): No Physical Activity: Insufficiently Active (07/23/2023) Exercise Vital Sign Days of Exercise per Week: 2 days Minutes of Exercise per Session: 10 min Stress: Stress Concern Present (07/23/2023) [employer] [place] [employer] - Occupational Stress Questionnaire Feeling of Stress : Very much Social Connections: Socially Isolated (07/23/2023) Social Connection and Isolation Panel [NHANES] Frequency of Communication with Friends and Family: Three times a week Frequency of Social Gatherings with Friends and Family: Three times a week Attends Confucianist Services: Never Active Member of Clubs or Organizations: No Attends Club or Organization Meetings: Never Marital Status: Interpersonal Safety: Not At Risk (10/20/2023) Humiliation, Afraid, Rape, and Kick questionnaire Fear of Current or Ex-Partner: No Emotionally Abused: No Physically Abused: No Sexually Abused: No Housing Instability: Low Risk (10/20/2023) Housing Instability Housing Instability: No Temp: [36.3 C (97.4 F)-37 C (98.6 F)] 36.4 C (97.6 F) Pulse: [58-73] 65 Resp: [14-26] 18 BP: (74-123)/(34-96) 102/65 SpO2: [94 %-100 %] 100 % O2 Device: Nasal cannula O2 Flow Rate (L/min): [2 L/min] 2 L/min O2 Device: Nasal cannula PHYSICAL EXAM: GEN: Pleasant, comfortable, cooperative, NAD, O2 4L HEENT: Head atraumatic, normocephalic. NECK: Trachea midline, no Lymphadenopathy CV: S1 S2 RRR RESP: Clear to auscultation bilaterally, rhonchi - absent; crackles/ rales - absent; no accessory muscle use ABD: Soft, ND, NT, normal BS, no organomegaly EXT: No edema, no cyanosis, no erythema NEURO: no apparent sensorimotor deficits SKIN: Warm, dry, no rash Results from last 3 days Lab Units 10/20/23 1447 10/20/23 1004 10/20/23 0140 BUN mg/dL -- -- 20 CREATININE mg/dL -- -- 1.70* POTASSIUM mmol/L 3.1* -- 3.0* CO2 mmol/L -- -- 27 CHLORIDE mmol/L -- -- 95* MAGNESIUM mg/dL -- 1.2* -- AST U/L -- -- 42* ALT U/L -- -- 28 ALK PHOS U/L -- -- 105 LIPASE U/L -- -- 61* Results from last 3 days Lab Units 10/20/23 1628 INR 1.2* PROTIME sec 13.4* Results from last 3 days Lab Units 10/20/23 1628 10/20/23 0140 WBC X10E9/L -- 11.0 HEMOGLOBIN g/dL 8.8* 8.9* HEMATOCRIT % -- 26.4* PLATELETS X10E9/L 176 204 MCV fL -- 97 MCH pg -- 32.7 MCHC g/dL -- 33.8 RDW % -- 17.7* EOS ABS AUTO X10E9/L -- 0.1 Microbiology Results No results found for the last 168 hours. Glucose Results from last 7 days Lab Units 10/20/23 1059 10/20/23 0140 BEDSIDE GLUCOSE mg/dL 107* -- GLUCOSE mg/dL -- 130* No intake/output data recorded. Microbiology Results No results found for the last 168 hours. Lines/Drains Peripheral IV 10/20/23 Left Antecubital (Active) Line Status Flushed;Saline locked;Alcohol sponge cap changed 10/20/23809 Site Assessment Clean;Dry;Intact 10/20/23809 Dressing Type Occlusive;Transparent 10/20/23809 Dressing Status Clean;Dry;Intact 10/20/23 08 Dressing Intervention Initial dressing 10/20/23143 Specimen Obtained Yes 10/20/23143 Specimen Status Sent for analysis 10/20/23143 Amount Drawn (mL) 10 mL 10/20/23143 Dressing Change Due (Non-Gauze) 10/27/23 10/20/23143 Vas venous duplex lwr bilateral Result Date: 10/20/2023 Right: Common femoral, femoral, popliteal and deep calf muscle veins are compressible without intraluminal content. Spontaneous, phasic common femoral, femoral and popliteal spectral Doppler signals.Compressible thigh superficial Great saphenous vein. Left: Common femoral, femoral, popliteal and deep calf muscle veins are compressible without intraluminal content. Spontaneous, phasic common femoral, femoral and popliteal spectral Doppler signals. Absent Great saphenous superficial vein in the thigh. General: In-patient, bedside examination. Conclusions: RIGHT: NO EVIDENCE of deep or superficial vein thrombosis of the lower extremity.LEFT: The great saphenous vein is not visualized or surgically absent in the thigh. NO EVIDENCE of deep or superficial vein thrombosis of the lower extremity. Recommendations: Any questions prior to finalization, please call the reading physician during normal business hours at the phone number beside their name. NM pulmonary perfusion scan Result Date: 10/20/2023 PERFUSION LUNG SCAN COMPARISON: None. CORRELATION: Chest radiograph 10/20/2023 HISTORY: Chest pain, shortness breath. TECHNIQUE: 5.6 mCi technetium 99m MAA injected intravenously without reported complication. Planar images of the lungs obtained in multiple projections for both ventilation and perfusion. FINDINGS: Normal heterogeneous uptake seen within the right lung. Large perfusion defect involving a majority of the left mid/lower lung. Of note, patient has evidence of moderate left pleural effusion on prior chest x-ray which may be causing significant compressive atelectasis IMPRESSION: * Large perfusion defect involving majority of the left mid/lower lung with underlying pleural effusion on the chest radiograph.. * Intermediate probability for pulmonary embolism. * A central or hilar obstructing lesion to the left lower lobe cannot be excluded in the setting. * Ventilation imaging was not performed. Approved by Resident Pavan Durbin DO on 10/20/2023 2:00 PM Kye Marcial MD have personally reviewed the image(s) and agree with and/or edited the report Fi nalized by Kye Kapadia MD on 10/20/2023 2:20 PM X-ray chest 1 view Result Date: 10/20/2023 XR CHEST 1 VW HISTORY: Shortness of breath COMPARISON: 10/11/2023 FINDINGS: Interval removal of leftneck catheter. Prior median sternotomy. Left shoulder tenodesis. Small left pleural effusion and left lower lobe airspace opacification does not appear significantly changed across multiple prior exam inations. Cardiac mediastinal silhouette appears stable and within normal limits given portable technique. IMPRESSION: * No significant interval change other than left IJ central venous catheter having been removed.. Approved by Resident: Agustin Flores MD on 10/20/2023 2:12 AM Shiv Marcial MD have personally reviewed the image(s) and agree with and/or edited the report Finalized by Shiv Pinzon MD on 10/20/2023 2:17 AM X-ray spine lumbar 2 or 3 views Result Date: 10/20/2023 Clinical history: Status post fall, back pain. Comparisons: None Findings: AP and lateral lumbar spine radiographs obtained. 5 lumbar-like vertebral bodies are present in normal alignment. There is an anterior wedge compression fracture at T12 which was not present on a CT chest 10/04/2023. The other vertebral body heights are preserved. Some changes of degenerative disc disease are present at L5-S1. No malalignment. Left lower pole renal calculi are present. Bifurcated abdominal aortic endograft and vascular calculations are present. IMPRESSION: 1. Anterior wedge compression fracture T12, newwhen compared with CT scan 10/04/2023. 2. Degenerative disc disease L5-S1. Finalized by Shiv Pinzon MD on 10/20/2023 2:15 AM Echo limited W/ contrast Result Date: 09/08/2023 Left Ventricle: Left ventricle appears normal in size. Wall thickness is normal. Systolic function is normal with an ejection fraction of 55-60%. See wall score diagram for wall motion abnormalities.Pericardium: There is pleural effusion. The study had technical difficulties. The study was difficult due to patient's body habitus and poor acoustic windows. Echo complete W/ contrast Result Date: 07/27/2023 Left Ventricle: Left ventricle appears normal in size. Systolic function is normal with an ejectionfraction of 55-60%. Right Ventricle: Systolic function is mildly reduced. Abnormal tricuspid annular plane systolic excursion. Aortic Valve: There is moderate to severe regurgitation. There is moderate to severe stenosis. The calculated aortic valve area is 0.59 cm2. The calculated aortic valve peak gradient is 68.00 mmHg. The calculated aortic valve mean gradient is 36.00 mmHg. Tricuspid Valve: There is mild to moderate regurgitation. There is no evidence of tricuspid valve stenosis. 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 [facility] [address] [place] [address] HISTORY & PHYSICAL / CONSULT NOTE Brian Mandel PCP: Melanie Taylor DO Date of Admission: 10/20/2023 Date of Consultation: 10/20/2023 10:50 AM Consult for elevated troponin SUBJECTIVE History of Present Illness: Brian Mandel is a 73 y.o. male with a past medical history of [place] vessel ASCVD history of remote CABG x2, recent NSTEMI s/p [facility] 07/19/2023 with PCI/KARL distal LM-ostial circumflex, chronic heart failure with preserved ejection fraction, moderate to severe aortic valve regurgitation, moderate to severe aortic valve stenosis, [id number] tricuspid valve regurgitation, essential hypertension, dyslipidemia, diabetes type 2 and COPD - on home oxygen. Patient follows with a field laboratory operator in [place], [place] Cardiology is being consulted for elevated troponin Patient reports while walking to the shower he became lightheaded and blacked out. Patient called 911 who took him to [facility]. Patient was found to have new T12 compression fracture. Patientwas then transferred to [facility] for further care. Patient denies any chest pain any new or worsening shortness of breath or palpitations. Patient lives a sedentary lifestyle. He was able to walk out to his mailbox without any worsening shortness of breath or chest pain. He utilizes a motorized cart at the grocery store for convenience not because he can not breathe or experiences chest discomfort. Patient recently hospitalized at [facility] from 10/05/2023 to 10/12/2023 for septic shock andacute kidney injury. Cardiology saw patient in consultation for aortic valve stenosis, aortic valveregurgitation and coronary artery disease. At that time, patient had no significant episodes of dizziness, and denied any chest discomfort. It was noted patient was anemic and his aspirin was discontinued but patient remained on ticagrelor as single antiplatelet therapy. Asked patient improved, no additional cardiac recommendations were made. Previous Medical History: Past Medical History: Diagnosis Date Acute coronary syndrome ([facility]) Anxiety disorder Chronic back pain Chronic obstructive asthma with exacerbation [place]) COPD (chronic obstructive pulmonary disease) [place] Diabetes mellitus type 2, controlled ([facility]) Essential hypertension Folate deficiency anemia Heart failure ([facility]) Megaloblastic anemia VT (myocardial infarction) ([facility] 06/2023 Muscle weakness (generalized) Myocardial infarct ([facility]) Obesity Obstructive sleep apnea SARAH (obstructive sleep apnea) Pancytopenia ([facility]) Presence of coronary artery bypass graft stent Shock ([facility]) 10/05/2023 Supplemental oxygen dependent Previous Surgical History: Past Surgical History: Procedure Laterality Date CARDIAC SURGERY X2 Allergies: No Known Allergies Hospital Meds: Current Facility-Administered Medications Medication Dose Route Frequency Provider Last Rate Last Admin acetaminophen (TYLENOL) tablet 650 mg 650 mg oral Q4H PRN APRIL Lee dextrose (GLUTOSE) 40 % gel 15 g 15 g oral PRN APRIL Lee dextrose 50 % in water (D50W) 50% solution 25 mL 25 mL intravenous PRN APRIL Lee glucagon HCL injection 1 mg 1 mg intramuscular PRN APIRL Lee insulin lispro (HumaLOG) injection 2-10 Units 2-10 Units subcutaneous TID with meals APRIL Lee insulin lispro (HumaLOG) injection 2-8 Units 2-8 Units subcutaneous Nightly APRIL Lee magnesium sulfate IVPB 2000 mg/50 mL in iso-osmotic water (40 mg/mL premix) 2,000 mg intravenous PRN APRIL Lee magnesium sulfate IVPB 4000 mg/100 mL in iso-osmotic water (40 mg/mL premix) 4,000 mg intravenous PRN APRIL Lee ondansetron (PF) (ZOFRAN) injection 4 mg 4 mg intravenous Q8H PRN APRIL Lee potassium chloride (K-TAB,KLOR-CON) CR tablet 30-40 mEq 30-40 mEq oral PRN APRIL Lee Or potassium chloride (KAYCIEL) 20 mEq/15 mL solution 30-40 mEq 30-40 mEq oral PRN APRIL Lee sodium chloride 0.9 % flush 3 mL 3 mL intravenous PRN APRIL Lee sodium chloride 0.9 % flush 3 mL 3 mL intravenous Q12H LYNN APRIL Lee sodium chloride 0.9 % flush bag 25 mL intravenous PRAPRIL Almanzar sodium chloride 0.9 % infusion 20 mL/hr intravenous Continuous PRAPRIL Almanzar Home Meds: Prior to Admission medications Medication Sig Start Date End Date Taking? Authorizing Provider acetaminophen (TYLENOL) 325 mg tablet Take 2 tablets (650 mg total) by mouth every 8 (eight) hours as needed for pain. Yes Not In System Ref Prov albuterol (PROVENTIL,VENTOLIN) 2.5 mg /3 mL (0.083 %) nebulizer solution Inhale 3 mL (2.5 mg total)by nebulization every 6 (six) hours as needed for wheezing. Patient takes it every 2 hours Yes Not In System Ref Prov amitriptyline (ELAVIL) 25 mg tablet Take 1 tablet (25 mg total) by mouth in the morning. Yes Not InSystem Ref Prov dapagliflozin propanediol (FARXIGA) 10 mg tablet Take 1 tablet (10 mg total) by mouth in the morning. 09/12/23 Yes APRIL Agrawal folic acid (FOLVITE) 1 mg tablet Take 1 tablet (1 mg total) by mouth in the morning. Yes Not In System Ref Prov furosemide (LASIX) 20 mg tablet Take 1 tablet (20 mg total) by mouth 2 (two) times a day before meals. 09/11/23 Yes APRIL Agrawal hydrOXYzine (ATARAX) 50 mg tablet Take 1-2 tablets (50-100 mg total) by mouth nightly as needed (sleep). Yes Not In System Ref Prov melatonin (CIRCADIN) tablet Take 2 tablets (6 mg total) by mouth nightly. Yes Not In System Ref Prov metFORMIN XR (GLUCOPHAGE XR) 750 mg 24 hr tablet Take 1 tablet (750 mg total) by mouth nightly. YesNot In System Ref Prov metoprolol (LOPRESSOR) 12.5 mg Take 1 split tablet (12.5 mg total) by mouth in the morning and 1 split tablet (12.5 mg total) before bedtime. Yes Not In System Ref Prov PARoxetine (PAXIL) 10 mg tablet Take 1 tablet (10 mg total) by mouth every morning. Yes Not In System Ref Prov simethicone (MYLICON) 80 mg chewable tablet Chew 1 tablet (80 mg total) and swallow every 6 (six) hours as needed for flatulence. Yes Not In System Ref Prov simvastatin (ZOCOR) 40 mg tablet Take 1 tablet (40 mg total) by mouth nightly. Yes Not In System Ref Prov ticagrelor (BRILINTA) 90 mg tablet Take 1 tablet (90 mg total) by mouth every 12 (twelve) hours. Yes Not In System Ref Prov benzonatate (TESSALON PERLES) 200 mg capsule Take 1 capsule (200 mg total) by mouth 3 (three) timesa day as needed for cough. Patient not taking: Reported on 10/20/2023 07/27/23 Maggie Cruz APRN-SHERIDAN HYDROcodone-acetaminophen (NORCO) 5-325 mg per tablet Take 1 tablet by mouth every 6 (six) hours asneeded. Patient not taking: Reported on 10/20/2023 Not In System Ref Prov nitroglycerin (NITROSTAT) 0.[address] 1 tablet (0.4 mg total) under the tongue every 5 (five) minutes as needed for chest pain. Not In System Ref Prov Social History: TOBACCO: reports that he has never smoked. He has never used smokeless tobacco. ETOH: reports that he does not currently use alcohol. DRUGS: reports no history of drug use. OCCUPATION: Family History: Family History Problem Relation Age of Onset Diabetes Mother Stroke Mother Cancer Mother Heart attack Mother Heart attack Father Stroke Father Diabetes Father Cancer Father Review of Systems: Constitutional: there has been no unanticipated weight loss, no change in energy level, sleep pattern, or activity level. Eyes: No visual changes or diplopia, no scleral icterus. ENT: No Headaches, hearing loss or vertigo, no mouth sores or sore throat. Cardiovascular: See HPI Respiratory: No cough or wheezing, no sputum production, no hematemesis. Gastrointestinal: No abdominal pain, appetite loss, blood in stools, no change in bowel or bladder habits. Genitourinary: No dysuria, trouble voiding, or hematuria Musculoskeletal: No gait disturbance, weakness or joint complaints Integumentary: No rash or pruritis Neurological: No headache OBJECTIVE LAST LABS: CBC: Results from last 7 days Lab Units 10/20/23 0140 WBC X10E9/L 11.0 HEMOGLOBIN g/dL 8.9* HEMATOCRIT % 26.4* MCV fL 97 PLATELETS X10E9/L 204 BMP: Results from last 7 days Lab Units 10/20/23 0140 SODIUM mmol/L 135 POTASSIUM mmol/L 3.0* CHLORIDE mmol/L 95* CO2 mmol/L 27 BUN mg/dL 20 CREATININE mg/dL 1.70* CALCIUM mg/dL 8.7 D Dimer: Results from last 7 days Lab Units 10/20/23 0140 D DIMER ng/mL DDU 4,961* ProBNP Results from last 7 days Lab Units 10/20/23 0140 BNP pg/mL 104* Lipid Panel: Lab Results Component Value Date CHOL 136 (L) 10/05/2023 TRIG 83 10/05/2023 HDL 41 10/05/2023 HgA1C: Lab Results Component Value Date HGBA1C 5.5 09/21/2023 CV HISTORY: ECHO: Echo limited W/ contrast Result Date: 09/08/2023 Left Ventricle: Left ventricle appears normal in size. Wall thickness is normal. Systolic function is normal with an ejection fraction of 55-60%. See wall score diagram for wall motion abnormalities.Pericardium: There is pleural effusion. The study had technical difficulties. The study was difficult due to patient's body habitus and poor acoustic windows. Echo complete W/ contrast Result Date: 07/27/2023 Left Ventricle: Left ventricle appears normal in size. Systolic function is normal with an ejectionfraction of 55-60%. Right Ventricle: Systolic function is mildly reduced. Abnormal tricuspid annular plane systolic excursion. Aortic Valve: There is moderate to severe regurgitation. There is moderate to severe stenosis. The calculated aortic valve area is 0.59 cm2. The calculated aortic valve peak gradient is 68.00 mmHg. The calculated aortic valve mean gradient is 36.00 mmHg. Tricuspid Valve: There is mild to moderate regurgitation. There is no evidence of tricuspid valve stenosis. CXR: X-ray chest 1 view Result Date: 10/20/2023 XR CHEST 1 VW HISTORY: Shortness of breath COMPARISON: 10/11/2023 FINDINGS: Interval removal of leftneck catheter. Prior median sternotomy. Left shoulder tenodesis. Small left pleural effusion and left lower lobe airspace opacification does not appear significantly changed across multiple prior exam inations. Cardiac mediastinal silhouette appears stable and within normal limits given portable technique. IMPRESSION: * No significant interval change other than left IJ central venous catheter having been removed.. Approved by Resident: Agustin Flores MD on 10/20/2023 2:12 AM IShiv MD have personally reviewed the image(s) and agree with and/or edited the report Finalized by Shiv Pinzon MD on 10/20/2023 2:17 AM EKG: TELEMETRY: Sinus rhythm, heart rate 69 PHYSICAL EXAM Admission Weight: No intake/output data recorded. Weight change: Wt Readings from Last 3 Encounters: 10/12/23 105.6 kg (232 lb 12.9 oz) 10/04/23 106.1 kg (234 lb) 09/21/23 106.1 kg (234 lb) Vitals: Vitals: 10/20/23 0822 BP: 102/52 Pulse: 66 Resp: 18 Temp: 36.6 C (97.9 F) TempSrc: Oral SpO2: 100% Admit Weight Last 3 Weights There were no vitals filed for this visit. There is no height or weight on file to calculate BMI. INTAKE/OUTPUT No intake/output data recorded. No intake or output data in the 24 hours ending 10/20/23 1050 General appearance: Alert oriented and cooperative, in no acute distress Skin: Warm and dry to touch Head: Normocephalic, without obvious abnormality, atraumatic Eyes: Conjunctivae unremarkable, EOMs intact, sclera non icteric Neck: No JVD, neck supple, trachea midline Lungs: Clear to ausculation bilaterally, no use of accessory muscles. Heart: RRR with normal S1 and S2, murmur present. Abdomen: Soft, non-tender, bowel sounds normal Extremities: Trace pedal edema Neurologic: Oriented to time, person and place, affect appropriate, no focal/major motor or sensorydefects noted Psychiatric: Appropriate mood, memory and judgment ASSESSMENT Elevated high sensitivity troponin Trend: 32, 33, 37 EKG showing sinus rhythm, borderline T-wave abnormalities. No significant changes when compared to previous Patient denies any chest pain or worsening shortness of breath [place] vessel ASCVD S/p CABG x2 in 2007 per patient: FAULKNER-LAD, SVG-dRCA S/p C 07/19/2023 in the setting of NSTEMI revealing severe three-vessel ASCVD. PCI/KARL of distal left main-ostial circumflex. Widely patent sequential [id number], SVG-PDA Chronic heart failure with preserved LVEF 55-60% on TTE 07/26/2023 Moderate to severe aortic valve regurgitation on TTE 07/26/2023 Moderate to severe aortic valve stenosis on TTE 07/26/2023 Peak gradient 68.00 mmHg, mean gradient 36.0 mmHg Jeup-uf-uaarjfsk TR on TTE 07/26/2023 Essential hypertension Dyslipidemia COPD, on home supplemental oxygen New compression fracture at T12 Elevated D-dimer, 4961 ng/mL DDU Hypokalemia K 3.0 mmol/L Hypomagnesemia Mag 1.2 mg/dL Acute on chronic kidney disease Creatinine 1.7 mg/dL, BUN 20 mg/dL PLAN Patient recently had an LHC 07/11/2023 in the setting of an NSTEMI. Patient had PCI/KARL of distal left main-ostial circumflex. He was currently on single antiplatelet therapy with ticagrelor which should not be interrupted in the setting of recent stent placement. Patient reports he takes his ticagrelor b.i.d. as directed. Last dose was last night 10/19/2023. Continue to trend troponin Will resume metoprolol succinate XL and atorvastatin 20 mg daily Monitor and maintain K> 4.0, Mag > 2.0 and renal function. Replace electrolytes as needed. Will discuss any further workup with attending APRIL Preston APRN-CNP 10/20/23 1223 ATTENDING: I, Matt Montemayor MD, personally performed the face to face diagnostic evaluation on this patient. I have reviewed the RASHAUN's history, exam, and MDM and agree with the assessment and plan as written. My findings are as follows: Brian is a 73-year-old white male with history of ASCAD, status post CABG, status post non ST elevation myocardial infarction in July 11, 2023 requiring drug-eluting stent placement of ostial left circumflex artery, patent FAULKNER to LAD, patent SVG to distal RCA, normal LV systolic function, moderate to severe aortic stenosis, moderate to severe aortic regurgitation, chronic diastolic heart failure the preserved LV ejection fraction, essential hypertension, dyslipidemia, diabetes mellitus, COPD, on home oxygen therapy, chronic kidney disease, other problems as charted. Patient was seen by Dr. Orville Ledezma at [facility] on 09/13/2023 and I reviewed that note in the EHR along with the most recent hospitalization cardiology consultation note dated 10/10/2023 and progress notes dated 10/10 and 821 at [facility] by my colleague Dr. Oconnell. Patient was walking towards the shower he became lightheaded and dizzy and reportedly passed out for few seconds unwitnessed at home and in his kitchen and he called EMS and initially taken to [facility] but transfer to [facility] for further management of T12 compression fracture and we are asked to see for preoperative cardiac clearance prior to kyphoplasty which was originally scheduled for today but not performed. At the time of my evaluation patient is resting comfortably and denies any anginal chest pain or palpitation or lightheadedness or dizziness or worsening shortness of breath or cough or fever or chills or leg swelling or syncope. Sinus rhythm on telemetry. Laying in bed with O2 in place. Awake and alert. Neck no JVD. Chest fair air entry bilaterally. CVS regular rate and rhythm with aortic stenosis murmur and faint aortic regurgitation murmur. No definite S3 gallop. Abdomen soft. Extremities revealed no leg edema. Skin warm and dry. Neuro grossly nonfocal. EKG labs reviewed. Recent cardiac catheterization and 2D echocardiogram results were reviewed. IMPRESSION: Preoperative cardiac clearance prior to kyphoplasty of T12 compression fracture. Patient will be considered high cardiac risk for cele procedural cardiac complications given history of ASCAD, recent stent placement of distal left main/ostial circumflex artery in July 11, 2023 following VT, patent sequential FAULKNER to LAD and diagonal graft and patent SVG to PDA branch of RCA graft. Mildly elevated high sensitivity troponin around 30 range which is probably nonspecific in the setting of chronic kidney disease. Doubt any acute myocardial infarction. No active angina pectoris. History of syncope at home. Rule out any cardiac arrhythmias. Moderate to severe aortic stenosis with mean gradient 36 mmHg on 2D echocardiogram July 26, 2023. Moderate to severe aortic regurgitation. Wsju-zl-xtfibncr tricuspid regurgitation. History of chronic diastolic heart failure with preserved LV ejection fraction. Hypokalemia with potassium level 3.0. Hypo magnesemia with magnesium level 1.2. Elevated D-dimer with abnormal V/Q scan revealing large perfusion defect involving left mid/lower lung with underlying pleural effusion on chest x-ray, intermediate probability for pulmonary embolism. Started on IV heparin drip per environmental construction engineer. Acute on chronic kidney disease with creatinine 1.7. History of COPD. Other problems as charted. RECOMMENDATION/PLAN: As ordered. Continue metoprolol XL, atorvastatin, heparin. Replace potassium and maintain level around 4.0 range and replace magnesium and maintain level around 2.0 range Patient will be at high-risk for stent thrombosis of distal left main/ostial left circumflex arterywhich was just performed on July 11, 2023 and suggest resuming Brilinta as antiplatelet agent YVONNE. Currently it is on hold and if no plans for any surgery, suggest resuming Brilinta tonight for cardio protection. Patient will be at high-risk for the planned T12 compression fracture kyphoplasty. Discussed these issues with patient in the presence of patient's nurse at bedside at the time of my rounds. He voices understanding. Will arrange for outpatient follow-up with our structural heart team regarding moderate to severe aortic stenosis/aortic regurgitation in the presence of syncope unwitnessed and as reported. I advised the nurse to contact the surgeon and gave my cell phone numbers so that he can call me directly and I will try to talk to him personally regarding high cardiac risk perioperatively. There were no family members available at bedside. Patient told me that his children live out of state. Will follow. Thank you. Matt Montemayor MD, [facility] This note was completed using a voice taffy puller system. Every effort was made to ensure accuracy. However, inadvertent computerized taffy puller errors may be present. [facility]* Discharge Planning Note - Celine Houser - 10/20/2023 4:03 PM EDT DISCHARGE PLANNING NOTE Referral sent to [facility] ([place]- P# ; F# ) ([place], [place] P# ; F#) [facility] Progress note* Discharge Planning Note - SHERINE Lopes - 10/20/2023 3:34 PM EDT Images from the original note were not included. 10/20/23 1527 Discharge Disposition Discharge Disposition Home with Home Health County Information County of Residence Other (comment) Patient Information Primary Caregiver Self Support System Immediate family Stressors Type of stressor Health issues Referral To Community Resources Denies needs Discharge Planning Living Arrangements Alone Support Systems Family members;Children Type of Residence Private residence Private Residence [place] Residence Accessibility Steps into home Number of Steps 2 Home Care Services Yes Type of Home Care Services Nurse visit Community Agencies Currently Utilized Established Home care;Established Durable Medical Equipment Provider Provider Name [facility] Prov[facility] Established Durable Medical Equipment Provider [facility] Established DME Comments rolling walker; Home oxygen Patient expects to be discharged to: home w/self care and home care services Does the patient need discharge transport arranged? No DISCHARGE PLANNING NOTE SW receives referral and reviews chart. Pt is a 35 % readmission risk. SW introduces self/role to pt who presents reclining in bed, alert, ox3, wearing oxygen. Pt states he is independent w/ADLs and IADLs including driving. Pt reports access to food/RX and has a PCP appt scheduled on 11/02/23. Pt states he has 2 ltr home O2 via [facility]. Pt declines interest in SNF services and states he is active w/[facility]. Pt plans on discharge home w/[facility] and states son is supportive as needed. SW provides brochure for o/p COPD clinic. Pt declines further questions/needs. SW tasks referral to [facility]. SW following. Services Requested: Services Requested Discharge Disposition: Home with home health services Facility/Service Name: [facility]Service Fax number: [phone] Facility/Service Does the patient need discharge transportation arranged?: No Patient choice offered: Yes List Provided: Patient declined Patient Declined: Active with Provider Initial DC Assessment Completed: Yes DC Planning Complete Discharge Milestones: Yes Patient Goals: Patient/Caregiver Goals Patient/Caregiver Goals: Home with Home Fpc with Home Care (Check ALL that Apply): Oxygen Goals: Goals discharge home (pt-stated) Evaluation of progress towards goal: Patient plans on discharge home w/self care and home care services. SNADEC [id number] History and physical note* Julia Man MD - 10/20/2023 2:45 PM EDT Images from the original note were not included. [facility] INTERNAL MEDIC[facility] [id number] [facility] [facility] [id number] Hospital Medicine History & Physical Patient: Brian Mandel Date of : 1950 Room: [address] [place] [address] PCP: Melanie Taylor DO Admission date: 10/20/2023 8:14 AM Encounter date: 10/20/23 Hospital Day: 1 SUBJECTIVE Brian Mandel is a 73 y.o. male who presents shortness a breath and lower back pain after fall Patient presents to the emergency room at [facility] with shortness of breath and lower back pain after a fall. The patient states that he was recently discharged from [facility] and that he was home and doing fine until he got up to walk to the kitchen and he was going to take a bath and he felt very short of breath and he fell to the ground. He was complaining of back pain post fall. He denies any loss of consciousness. Patient had a recent admission and was transferred from the [place] [facility] on October 08 for sepsis and hypotension. He also had acute kidney injury at that time. The patient is on home oxygen and has a history of COPD. The patient said he is on O2 at home. The patient arrived from EMS in no distress. Patient transferred from [facility] to [facility] this morning for further evaluation and care. WBC 11.0, hemoglobin 8.9, D-dimer 4961, K 3.0. Creatinine 1.70. Troponins 32 and 33 respectively. BNP 104. Procalcitonin 0.18. Chest x-ray shows small left pleural effusion and left lower lobe airspace opacification. Previous left IJ catheter has been removed. X-ray lumbar spine shows anterior wedge compression fracture T12 that is new when compared to CT scan on 10/04/2023. Showing degenerative disc disease L5 through S1. Pulmonary perfusion scan showing large perfusion defect involving majority of the left mid/lower lung with underlying pleural effusion on the chest radiograph. Inte rmediate probability for pulmonary embolism. Allergies: Patient has no known allergies. Prior to Admission medications Medication Sig Start Date End Date Taking? Authorizing Provider acetaminophen (TYLENOL) 325 mg tablet Take 2 tablets (650 mg total) by mouth every 8 (eight) hours as needed for pain. Yes Not In System Ref Prov albuterol (PROVENTIL,VENTOLIN) 2.5 mg /3 mL (0.083 %) nebulizer solution Inhale 3 mL (2.5 mg total)by nebulization every 6 (six) hours as needed for wheezing. Patient takes it every 2 hours Yes Not In System Ref Prov amitriptyline (ELAVIL) 25 mg tablet Take 1 tablet (25 mg total) by mouth in the morning. Yes Not InSystem Ref Prov dapagliflozin propanediol (FARXIGA) 10 mg tablet Take 1 tablet (10 mg total) by mouth in the morning. 09/12/23 Yes APRIL Agrawal folic acid (FOLVITE) 1 mg tablet Take 1 tablet (1 mg total) by mouth in the morning. Yes Not In System Ref Prov furosemide (LASIX) 20 mg tablet Take 1 tablet (20 mg total) by mouth 2 (two) times a day before meals. 09/11/23 Yes APRIL Agrawal hydrOXYzine (ATARAX) 50 mg tablet Take 1-2 tablets (50-100 mg total) by mouth nightly as needed (sleep). Yes Not In System Ref Prov melatonin (CIRCADIN) tablet Take 2 tablets (6 mg total) by mouth nightly. Yes Not In System Ref Prov metFORMIN XR (GLUCOPHAGE XR) 750 mg 24 hr tablet Take 1 tablet (750 mg total) by mouth nightly. YesNot In System Ref Prov metoprolol (LOPRESSOR) 12.5 mg Take 1 split tablet (12.5 mg total) by mouth in the morning and 1 split tablet (12.5 mg total) before bedtime. Yes Not In System Ref Prov PARoxetine (PAXIL) 10 mg tablet Take 1 tablet (10 mg total) by mouth every morning. Yes Not In System Ref Prov simethicone (MYLICON) 80 mg chewable tablet Chew 1 tablet (80 mg total) and swallow every 6 (six) hours as needed for flatulence. Yes Not In System Ref Prov simvastatin (ZOCOR) 40 mg tablet Take 1 tablet (40 mg total) by mouth nightly. Yes Not In System Ref Prov ticagrelor (BRILINTA) 90 mg tablet Take 1 tablet (90 mg total) by mouth every 12 (twelve) hours. Yes Not In System Ref Prov benzonatate (TESSALON PERLES) 200 mg capsule Take 1 capsule (200 mg total) by mouth 3 (three) timesa day as needed for cough. Patient not taking: Reported on 10/20/2023 07/27/23 APRIL Agrawal HYDROcodone-acetaminophen (NORCO) 5-325 mg per tablet Take 1 tablet by mouth every 6 (six) hours asneeded. Patient not taking: Reported on 10/20/2023 Not In System Ref Prov nitroglycerin (NITROSTAT) 0.[address] 1 tablet (0.4 mg total) under the tongue every 5 (five) minutes as needed for chest pain. Not In System Ref Prov Code Status: Full Code Past Medical History: Patient has a past medical history of Acute coronary syndrome ([facility]), Anxiety disorder, Chronic back pain, Chronic obstructive asthma with exacerbation ([facility]), COPD (chronic obstructive pulmonary disease) [facility] Diabetes mellitus type 2, controlled ([facility]), Essential hypertension, Folate deficiency anemia, Heart failure ([facility]), Megaloblastic anemia, VT (myocardial infarction) [facility] (06/2023), Muscle weakness (generalized), Myocardial infarct ([facility]), Obesity, Obstructive sleep apnea, SARAH (obstructive sleep apnea), Pancytopenia ([facility]), Presence of coronary artery bypassgraft stent, Shock ([facility]) (10/05/2023), and Supplemental oxygen dependent. Past Surgical History: Patient has a past surgical history that includes Cardiac surgery. Family History: Patient's family history includes Cancer in his father and mother; Diabetes in his father and mother; Heart attack in his father and mother; Stroke in his father and mother. Social History: Patient reports that he has never smoked. He has never used smokeless tobacco. He reports that he does not currently use alcohol. He reports that he does not use drugs. Review of Systems Constitutional: Positive for fatigue. Negative for chills and fever. HENT: Negative for ear pain and sore throat. Eyes: Negative for pain and visual disturbance. Respiratory: Positive for shortness of breath. Negative for cough. Cardiovascular: Negative for chest pain and palpitations. Gastrointestinal: Negative for abdominal pain, constipation, diarrhea, nausea and vomiting. Genitourinary: Negative for dysuria and hematuria. Musculoskeletal: Positive for back pain. Negative for arthralgias. Skin: Negative for color change and rash. Neurological: Positive for weakness. Negative for seizures and syncope. All other systems reviewed and are negative. OBJECTIVE BP 120/55 Pulse 62 Temp 36.3 C (97.4 F) (Oral) Resp 18 Ht 152.4 cm (5') SpO2 100% BMI 45.47 kg/m Temp: [36.3 C (97.4 F)-37 C (98.6 F)] 36.3 C (97.4 F) Pulse: [58-73] 62 Resp: [14-26] 18 BP: (74-123)/(34-96) 120/55 SpO2: [94 %-100 %] 100 % O2 Device: Nasal cannula O2 Flow Rate (L/min): [2 L/min] 2 L/min No intake or output data in the 24 hours ending 10/20/23 1445 Physical Exam Constitutional: General: He is not in acute distress. Appearance: He is well-developed. HENT: Head: Normocephalic. Right Ear: External ear normal. Left Ear: External ear normal. Nose: Nose normal. Eyes: Conjunctiva/sclera: Conjunctivae normal. Pupils: Pupils are equal, round, and reactive to light. Cardiovascular: Rate and Rhythm: Normal rate and regular rhythm. Heart sounds: Normal heart sounds. No murmur heard. Pulmonary: Effort: Pulmonary effort is normal. Breath sounds: Normal breath sounds. No wheezing. Abdominal: General: Bowel sounds are normal. Palpations: Abdomen is soft. There is no mass. Tenderness: There is no abdominal tenderness. Musculoskeletal: General: Normal range of motion. Cervical back: Normal range of motion. Lymphadenopathy: Cervical: No cervical adenopathy. Skin: General: Skin is warm and dry. Findings: No rash. Neurological: Mental Status: He is alert. Cranial Nerves: No cranial nerve deficit. Coordination: Coordination normal. Psychiatric: Behavior: Behavior normal. Medications Scheduled: atorvastatin, 20 mg, oral, Nightly insulin lispro, 2-10 Units, subcutaneous, TID with meals insulin lispro, 2-8 Units, subcutaneous, Nightly metoprolol succinate XL, 25 mg, oral, Daily sodium chloride, 3 mL, intravenous, Q12H LYNN Infusions: sodium chloride 0.9 %, 20 mL/hr As Needed: acetaminophen dextrose dextrose 50 % in water (D50W) glucagon (human recombinant) magnesium sulfate magnesium sulfate ondansetron potassium chloride OR potassium chloride sodium chloride sodium chloride sodium chloride 0.9 % Allergies: Patient has no known allergies. Labs Recent Results (from the past 24 hour(s)) CBC auto differential Collection Time: 10/20/23 1:40 AM Result Value Ref Range White Blood Cells 11.0 4.0 - 11.0 X10E9/L RBC count 2.73 (L) 4.10 - 5.70 X10E12/L Hemoglobin 8.9 (L) 13.0 - 17.0 g/dL Hematocrit 26.4 (L) 39 - 49 % MCV 97 80 - 100 fL MCH 32.7 27 - 34 pg MCHC 33.8 32 - 36 g/dL RDW 17.7 (H) 11.5 - 15.0 % Platelets 204 150 - 450 X10E9/L MPV 9.9 7 - 12 fL % neutrophils 75.1 % % lymphocytes 16.9 % % monocytes 5.7 % % eosinophils 1.0 % % Basophils 1.3 % Neutrophils Absolute (A) 8.3 (H) 1.5 - 6.6 X10E9/L Lymphocytes Absolute 1.9 1.0 - 3.5 X10E9/L Monocytes Absolute 0.6 0 - 0.9 X10E9/L Eosinophils Absolute 0.1 0.0 - 0.4 X10E9/L Basophils Absolute 0.1 0.0 - 0.2 X10E9/L Comprehensive metabolic panel Collection Time: 10/20/23 1:40 AM Result Value Ref Range Sodium 135 134 - 146 mmol/L Potassium, Bld 3.0 (L) 3.5 - 5.0 mmol/L Chloride 95 (L) 98 - 109 mmol/L CO2 27 22 - 32 mmol/L Anion gap 13 5 - 15 mmol/L BUN 20 5 - 27 mg/dL Creatinine 1.70 (H) 0.70 - 1.20 mg/dL Glucose 130 (H) 65 - 99 mg/dL Calcium 8.7 8.5 - 10.5 mg/dL Total Protein 7.8 6.0 - 8.0 g/dL Albumin 3.6 3.2 - 5.3 g/dL Alkaline Phosphatase 105 39 - 130 U/L AST 42 (H) 0 - 41 U/L ALT 28 0 - 40 U/L Total bilirubin 1.3 (H) 0.3 - 1.2 mg/dL eGFR (CKD-EPI)non-race dependent 42 (L) >59 ml/min/1.73sq.m D-Dimer Collection Time: 10/20/23 1:40 AM Result Value Ref Range D-dimer 4,961 (H) <255 ng/mL DDU Lactate w/ Reflex Collection Time: 10/20/23 1:40 AM Result Value Ref Range Lactate w/ Reflex 3.4 (H) 0.4 - 2.0 mmol/L Lipase Collection Time: 10/20/23 1:40 AM Result Value Ref Range Lipase 61 (H) 17 - 40 U/L Troponin I, High Sensitivity Collection Time: 10/20/23 1:40 AM Result Value Ref Range Troponin I, High Sensitivity 32 (H) <21 ng/L B-type natriuretic peptide Collection Time: 10/20/23 1:40 AM Result Value Ref Range BNP 104 (H) <100.0 pg/mL Troponin I, High Sensitivity 1 Hour Collection Time: 10/20/23 2:45 AM Result Value Ref Range 1 Hour Trop I, High Sensitivity 33 (H) <21 ng/L Urinalysis Collection Time: 10/20/23 4:53 AM Result Value Ref Range Color YELLOW YELLOW^YELLOW Turbidity CLEAR CLEAR^CLEAR Specific gravity 1.015 1.003 - 1.035 Nitrite Negative Negative^Negative Ph urine 6.0 5.0 - 8.5 Leukocyte esterase SMALL (A) Negative^Negative Protein Trace (A) Negative^Negative mg/dL Glucose, Ur 100 (A) Negative^Negative mg/dL Ketones urine Negative Negative^Negative mg/dL Urobilinogen 0.2 <1.1 eu/dL Bilirubin, urine Negative Negative^Negative Hemoglobin SMALL (A) Negative^Negative WBC 11 (H) 0 - 5 /hpf RBC 4 0 - 5 /hpf Squamous epithelium 4 0 - 5 /hpf Lactate Collection Time: 10/20/23 5:22 AM Result Value Ref Range Lactate 1.1 0.4 - 2.0 mmol/L Magnesium Collection Time: 10/20/23 10:04 AM Result Value Ref Range Magnesium 1.2 (L) 1.8 - 2.6 mg/dL Troponin I, High Sensitivity 3 Hour Collection Time: 10/20/23 10:04 AM Result Value Ref Range 3 Hour Trop I, High Sensitivity 37 (H) <21 ng/L Bedside Glucose *Place/Obtain serum glucose if >500(>600 MRH) per glucometer. Collection Time: 10/20/23 10:59 AM Result Value Ref Range Bedside glucose 107 (H) 65 - 99 mg/dL Troponin I, High Sensitivity 3 Hour Collection Time: 10/20/23 1:17 PM Result Value Ref Range 3 Hour Trop I, High Sensitivity 32 (H) <21 ng/L Radiology Vas venous duplex lwr bilateral Result Date: 10/20/2023 Narrative: Right: Common femoral, femoral, popliteal and deep calf muscle veins are compressible without intraluminal content. Spontaneous, phasic common femoral, femoral and popliteal spectral Doppler signals. Compressible thigh superficial Great saphenous vein. Left: Common femoral, femoral, popliteal and deep calf muscle veins are compressible without intraluminal content. Spontaneous, phasic common femoral, femoral and popliteal spectral Doppler signals. Absent Great saphenous superficial vein in the thigh. General: In- patient, bedside examination. Conclusions: RIGHT: NO EVIDENCE of deep or superficial vein thrombosis of the lower extremity.LEFT: The great saphenous vein is not visualized or surgically absent in the thigh. NO EVIDENCE of deep or superficial vein thrombosis of the lower extremity. Recommendations: Any questions prior to finalization, please call the [facility] normal business hours at the phone number beside their name. NM pulmonary perfusion scan Result Date: 10/20/2023 Narrative: PERFUSION LUNG SCAN COMPARISON: None. CORRELATION: Chest radiograph 10/20/2023 HISTORY: Chest pain, shortness breath. TECHNIQUE: 5.6 mCi technetium 99m MAA injected intravenously without reported complication. Planar images of the lungs obtained in multiple projections for both ventilation and perfusion. FINDINGS: Normal heterogeneous uptake seen within the right lung. Large perfusion defect involving a majority of the left mid/lower lung. Of note, patient has evidence of moderate left pleural effusion on prior chest x-ray which may be causing significant compressive atelectasis IMPRESSION: * Large perfusion defect involving majority of the left mid/lower lung with underlying pleural effusion on the chest radiograph.. * Intermediate probability for pulmonary embolism. * A central or hilar obstructing lesion to the left lower lobe cannot be excluded in the setting. * Ventilation imaging was not performed. Approved by Resident Pavan Durbin DO on 10/20/2023 2:00 PM Sheri Marcial MD have personally reviewed the image(s) and agree with and/or edited the report Finalized by Kye Kapadia MD on 10/20/2023 2:20 PM X-ray chest 1 view Result Date: 10/20/2023 Narrative: XR CHEST 1 VW HISTORY: Shortness of breath COMPARISON: 10/11/2023 FINDINGS: Interval removal of left neck catheter. Prior median sternotomy. Left shoulder tenodesis. Small left pleural effusion and left lower lobe airspace opacification does not appear significantly changed across multiple prior examinations. Cardiac mediastinal silhouette appears stable and within normal limits given portable technique. IMPRESSION: * No significant interval change other than left IJ central venous catheter having been removed.. Approved by Resident: Agustin Flores MD on 10/20/2023 2:12 AM Shiv Marcial MD have personally reviewed the image(s) and agree with and/or edited the report Finalized by Shiv Pinzon MD on 10/20/2023 2:17 AM X-ray spine lumbar 2 or 3 views Result Date: 10/20/2023 Narrative: Clinical history: Status post fall, back pain. Comparisons: None Findings: AP and lateral lumbar spine radiographs obtained. 5 lumbar-like vertebral bodies are present in normal alignment.There is an anterior wedge compression fracture at T12 which was not present on a CT chest 10/04/2023. The other vertebral body heights are preserved. Some changes of degenerative disc disease are present at L5-S1. No malalignment. Left lower pole renal calculi are present. Bifurcated abdominal aortic endograft and vascular calculations are present. IMPRESSION: 1. Anterior wedge compression fracture T12, new when compared with CT scan 10/04/2023. 2. Degenerative disc disease L5-S1. Finalized by Shiv Pinzon MD on 10/20/2023 2:15 AM X-ray chest 1 view Result Date: 10/11/2023 Narrative: History: Pleural effusion EXAM: Chest AP portable upright COMPARISON: 10/09/2023 FINDINGS: Stable left IJ central line. Unchanged cardiac silhouette, left pleural effusion, adjacent atelectasis. No pneumothorax right lung is clear. IMPRESSION: No significant change. Finalized by Dagoberto Wiley MD on 10/11/2023 9:39 AM Ultrasound abdomen limited with duplex Result Date: 10/10/2023 Narrative: Abdominal ultrasound with Doppler, 10/10/2023. History: Dyspnea, fluid overload. Comparison: CT abdomen and pelvis 10/04/2023. Technique: Grayscale sonographic imaging of the right upper quadrant was performed. Color and spectral Doppler ultrasound was used to assess blood flow characteristics. Findings: The liver parenchyma is diffusely echogenic with decreased through- transmission. Liver measures 11.0 cm craniocaudal at mid clavicular line. No discrete mass. No definite intra- or extrahepatic biliary dilatation is seen. No significant abdominal ascites. Gallbladder demonstrates no wall thickening or pericholecystic fluid. The common bile duct measures 5 mm which is within the range of normal. No free fluid is demonstrated. Color and spectral Doppler ultrasound was performed to assess the hepatic vasculature. Blood flow within the main portal vein is hepatopedal with a peak systolic velocity of 27.7 cm/sec. Spectral waveforms are normal. The hepatic veins, hepatic arteries and inferior vena cava are patent with normal spectral waveforms. Impression: * No evidence of acute vascular abnormality. * Echogenic liver parenchyma compatible with hepatocellular disease, most commonly steatosis. Finalized by Braulio De Anda MD on 10/10/2023 8:53 PM X-ray chest 1 view Result Date: 10/09/2023 Narrative: CHEST 1 VIEW HISTORY: Postthoracentesis COMPARISON: 10/08/2023 FINDINGS: Stable left-sided central venous catheter and sternotomy wires. Unchanged small left pleural effusion with adjacent atelectasis. No pneumothorax. Right lung is clear. IMPRESSION: No significant interval change. Finalized by Edilberto Willoughby MD on 10/09/2023 8:42 AM X-ray chest 1 view Result Date: 10/08/2023 Narrative: Single view chest History:post thoracentesis Difficulty breathing, shortness of breath Comparison: 10/06/2023 Findings: Single portable view of the chest. Left jugular catheter is stable. Decreased left pleural effusion with left lower lung atelectasis versus pneumonia. Stable cardiomediastinal silhouette. Mild vascular congestion. Impression: Decreased left pleural effusion with persistent left lower lung atelectasis versus pneumonia. Finalized by Kye Kapadia MD on 10/08/2023 7:08 AM IR thoracentesis with guidance left Result Date: 10/07/2023 Narrative: Ultrasound-guided left thoracentesis. Indication: pleural effusion, shortness of breath.Consent: The risks and benefits of the procedure were explained to the patient signed written consent. TIME OUT: [place] Protocol Time Out Verification performed. Procedure details: In the sitting position, the left chest was evaluated with ultrasound and this revealed small pleural effusion. Theposterior left chest was prepped and draped in a sterile fashion and the skin was infiltrated with 1% lidocaine. A small skin francois with an 11 blade was made. Using real-time ultrasound guidance, an 18-gauge Yueh needle was advanced in the left posterior pleural cavity during direct ultrasound needle visualization, and an ultrasound customer account representative image was obtained and saved in PACS; the catheterwas connected to a vacuum bottle, and approximately 0.5 liters of yellow fluid was removed and sentfor analysis. The needle was removed and dressing placed. No immediate complications. Estimated blood loss: 0 mL of blood. Batch Operator: None. Complications: None. Impression: Ultrasound-guided left thoracentesis revealing 0.5 liters of fluid. Finalized by Cami Andre MD on 10/07/2023 6:31 PM X-ray chest 1 view Result Date: 10/06/2023 Narrative: Clinical history: Acute respiratory failure Views: 1 Comparison: 10/05/2023 Findings/Impression: 1. Left pleural effusion with atelectasis. Right lung clear. Heart size prominent. Vasculature stable. Central line overlies SVC. 2. In summary, continued abnormal chest without interval change. Finalized by Ricardo Serra MD on 10/06/2023 7:39 AM IR CICV non tunneled more than 5 years Result Date: 10/05/2023 Narrative: CLINICAL INDICATION: ESRD, need for dialysis COMPARISON: None TECHNIQUE: Procedure performed by Interventional Radiologist Neo Anne MD Reference Air Kerma = 17.8 mGy Fluoroscopy time:1.1 minutes Saved images: 3 CONSENT: The reason of the procedure was discussed with the patient. The procedure, expectations, risks, benefits, options and alternatives were discussed. All of the patient?s questions were answered. The patient understands that the results cannot be guaranteed. The procedure is indicated and the risks are acceptable. Consent was obtained. PROCEDURE: 1. Ultrasound-guided left internal jugular vein access. Placement of a temporary trialysis catheter. Details of procedure: Patient placed in the supine position. The left neck was prepped and draped in the usual sterile fashion. Under continuous ultrasound guidance, a patent and compressible left internal jugular vein was accessed with a micropuncture needle. Permanent ultrasound images were stored in PACS. A micr owire was placed into the right atrium. A skin francois was made. The needle was removed. A micropuncture sheath was placed. The inner dilator and wire were removed. An Amplatz wire was advanced into theIVC. The micropuncture sheath was then removed. The track was dilated. A temporary trialysis catheter was placed.. The wire was removed. 2-0 Prolene suture was used to secure the line to the skin. All the lumens aspirated and flushed appropriately. Sterile caps applied. A sterile dressing was applied. Patient tolerated the procedure well and there were no immediate complications. FINDINGS: Patentand compressible left internal jugular vein. Satisfactory placement of temporary trialysis catheterIMPRESSION: Successful ultrasound and fluoroscopic guided placement of left internal jugular trialysis catheter Okay to use Finalized by Neo Anne on 10/05/2023 7:02 PM X-ray chest 1 view Result Date: 10/05/2023 Narrative: History: Known pleural effusion, reassess severity Exam/Technique: AP view of the chest.XR CHEST 1 VW Comparison: Recent studies Findings: The heart mediastinum are grossly stable howeverleft hemithorax and heart border obscured by overlapping disease. Mild congestion improved from 09/08/2023. No focal right lung disease. Persistent consolidation and suspected effusion left mid and lower lung. IMPRESSION: * Mild congestion improved from previous with persistent large consolidation and effusion obscuring the left mid and lower hemithorax. Finalized by Soham Chatman DO on 10/05/2023 12:[address] abdomen and pelvis without contrast Result Date: 10/05/2023 Narrative: Noncontrast CT abdomen and pelvis, 10/04/2023. History: Acute abdominal pain Comparison: CT abdomen and pelvis 09/21/2023. Technique: Multiple contiguous 5 mm axial images were acquired fromthe lung bases through the ischial tuberosities. Coronal and sagittal reconstructions were performed. Automated exposure control was utilized. Findings: For evaluation of the intrathoracic structures, please refer to report from concurrent chest CT. Evaluation of abdominal structures compromised byabsence of IV contrast. Redemonstration of lobulated contour of the liver without discrete mass or i ntrahepatic biliary ductal dilatation. Normal gallbladder. Pancreas, spleen and adrenal glands are unremarkable. Nonobstructing bilateral renal calculi with the largest stone located in the left renal pelvis measuring up to 1.7 cm. No hydronephrosis or perinephric fluid collection. Urinary bladder is incompletely distended. Prostate is normal in size with coarse calcification noted. Bowel demonstrates no obstruction or acute inflammatory change. Normal appendix. No free air or fluid. No mesenteric lymph node enlargement. 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 No retroperitoneal or pelvic lymphadenopathy. Fat-containing bilateral inguinal hernias. Significant degenerative disc disease at L5-S1. No acute osseous abnormality. IMPRESSION: * No acute pathologic process. * Nonobstructing bilateral renal calculi. All CT scans at this facility use dose modulation, iterative reconstruction, and/or weight based dosing when appropriate to reduce radiation dose to as low as reasonably achievable. Finalized by Braulio De Anda MD on 10/05/2023 12:[address] chest without contrast Result Date: 10/05/2023 Narrative: Noncontrast chest CT on 10/04/2023 HISTORY: Shortness of breath, pain COMPARISON: CT abdomen and pelvis 09/21/2023 TECHNIQUE: Multiple contiguous 2.5 mm axial images of the chest were obtained. Coronal and sagittal 2-D reconstructions were performed. Automated exposure control was utilized. FINDINGS: Normal caliber thoracic aorta with moderate atherosclerotic calcification. Pulmonary artery is normal in caliber. Heart size is enlarged with severe coronary artery calcifications noted. Valvular calcifications are present. Postoperative changes compatible with CABG. No pericardial effusion. No pathologically enlarged mediastinal lymph nodes. Moderate-sized left pleural effusion with significant associated consolidative change in the left upper and lower lobes. There is a solid 5 mm pulmonary nodule in the right lower lobe along the major fissure. No pneumothorax. Central airways are patent. No chest wall lymphadenopathy. For evaluation of abdominal structures, please refer to report from concurrent CTA abdomen and pelvis. No acute osseous abnormality. IMPRESSION: * Moderate-sized left pleural effusion with associated atelectasis and/or pneumonia. * Indeterminate solid pulmonary nodule measuring less than 6 mm. In a low-risk patient with a solid nodule <6 mm, recommend no follow-up. In a high-risk patient, CT at 12 months is optional with stronger consideration if there is suspicious nodule morphology and/or upper lobe location. All CT scans at this facility use dosemodulation, iterative reconstruction, and/or weight based dosing when appropriate to reduce radiation dose to as low as reasonably achievable. Seymour Garcia, et al. Guidelines for Management of Incidental Pulmonary Nodules Detected on CT Images: From the Fleischner Society 2017. Radiology. 2017 Umesh;284(1):228-243. Finalized by Braulio De Anda MD on 10/05/2023 12:[address] abdomen and pelvis without contrast Result Date: 09/21/2023 Narrative: Study: CT abdomen and pelvis without contrast History:Abdominal pain flank pain side notspecified. Protocol:CT abdomen and pelvis without contrast Contrast none COMPARISON:None Findings: Lung bases:Small to moderate sized left pleural effusion left basilar atelectasis Liver:Lobulated contour of the liver no definite focal mass correlation with liver enzymes for further evaluation of potential cirrhosis Spleen normal Gallbladder:Normal Bile ducts:No dilatation Pancreas:Normal Adrenals:Normal Kidneys:Right kidney is normal. Calcifications in the upper pole calyces in the renal pelvis on the left. Staghorn configuration. No hydronephrosis. Ureters:No ureteral calculi or hydroureter Bladder:Normal Bowel:Stomach unremarkable. No small bowel dilatation. No large bowel dilatation. Normal appendix. No diverticulitis. Reproductive organs:Normal size prostate with calcification Mesentry:No adenopathy Peritoneum:No free air or free fluid Retroperitoneum:No adenopathy. Vessels:Aortoiliac stent present. No significant aneurysm. Abdominal wall:No hernia Bones:Normal IMPRESSION: * Calcifications in the upper pole calyces in the renal pelvis on the left. Staghorn configuration. No hydronephrosis. * Ureters:No ureteral calculi or hydroureter * Bladder:Normal * Small to moderate sizedleft pleural effusion left basilar atelectasis * Lobulated contour of the liver no definite focal mass correlation with liver enzymes for further evaluation of potential cirrhosis All CT scans at this facility use dose modulation, iterative reconstruction, and/or weight based dosing when appropriate to reduce radiation dose to as low as reasonably achievable Finalized by Vinicius Wei MD on 09/21/2023 9:44 AM HOSPITAL PROBLEM LIST Principal Problem: T12 compression fracture ([facility]) Active Problems: Benign essential hypertension Chronic diastolic congestive heart failure ([facility]) COPD (chronic obstructive pulmonary disease) ([facility]) Dyslipidemia Type 2 diabetes mellitus with hyperglycemia, without long-term current use of insulin ([facility]) ASSESSMENT & PLAN T12 compression fracture Orthopedic input appreciated Patient needs cardiology clearance before surgery Pain control Chronic diastolic congestive heart failure/COPD/shortness of breath BNP 104 D-dimer 4961 Perfusion scan showing large perfusion deficit involving majority of left lung, intermediate probability of pulmonary embolism Pulmonology consulted Heparin drip initiated Benign essential hypertension Blood pressure 102/52 Toprol-XL 25 mg daily Type 2 diabetes Blood sugar 130 Short-acting sliding scale coverage Dyslipidemia Atorvastatin 20 mg nightly Chart reviewed. Admission orders placed and home medications reconciled. DVT/VTE prophylaxis: SCD's and heparin drip GI prophylaxis: Pepcid BID DC planning: Pending clinical course APRIL Torrez 10/20/2023 2:45 PM [facility] Internal Medicine 7AM-7PM (all facilities): EpicChat or page through [employer]. 7PM-7AM ([facility], [facility]patient Rehab): EpicChat or page, [phone]. 7PM-7AM ([facility], [place], [facility] and [facility] Rehab): EpicChat or page through [employer]. APRIL Torrez 10/20/23 2058 Physician Attestation I, Julia Man MD, personally performed a face to face diagnostic evaluation on this patient. I have reviewed the note authored by the advance practice provider including history, review of systems,physical examination,medical decision making and agree with the assessment and plan as written. I have seen and evaluated the patient, I have repeated the benoit portions of the physical exam and concur with the RASHAUN findings. I have reviewed all laboratory findings and imaging reports/films. I agree with the plan as noted. [facility]08-29-2024 History and physical note* Julia Man MD - 10/20/2023 2:45 PM EDT Images from the original note were not included. [facility] INTERNAL MEDICINE [facility] [address] [id number] Hospital Medicine History & Physical Patient: Brian Mandel Date of : 1950 Room: [address] [place] [address] PCP: Melanie Taylor DO Admission date: 10/20/2023 8:14 AM Encounter date: 10/20/23 Hospital Day: 1 SUBJECTIVE Brian Mandel is a 73 y.o. male who presents shortness a breath and lower back pain after fall Patient presents to the emergency room at [facility] with shortness of breath and lower back pain after a fall. The patient states that he was recently discharged from [facility] and that he was home and doing fine until he got up to walk to the kitchen and he was going to take a bath and he felt very short of breath and he fell to the ground. He was complaining of back pain post fall. He denies any loss of consciousness. Patient had a recent admission and was transferred from the [place] ER on October 08 for sepsis and hypotension. He also had acute kidney injury at that time. The patient is on home oxygen and has a history of COPD. The patient said he is on O2 at home. The patient arrived from EMS in no distress. Patient transferred from [facility] to [facility] this morning for further evaluation and care. WBC 11.0, hemoglobin 8.9, D-dimer 4961, K 3.0. Creatinine 1.70. Troponins 32 and 33 respectively. BNP 104. Procalcitonin 0.18. Chest x-ray shows small left pleural effusion and left lower lobe airspace opacification. Previous left IJ catheter has been removed. X-ray lumbar spine shows anterior wedge compression fracture T12 that is new when compared to CT scan on 10/04/2023. Showing degenerative disc disease L5 through S1. Pulmonary perfusion scan showing large perfusion defect involving majority of the left mid/lower lung with underlying pleural effusion on the chest radiograph. Inte rmediate probability for pulmonary embolism. Allergies: Patient has no known allergies. Prior to Admission medications Medication Sig Start Date End Date Taking? Authorizing Provider acetaminophen (TYLENOL) 325 mg tablet Take 2 tablets (650 mg total) by mouth every 8 (eight) hours as needed for pain. Yes Not In System Ref Prov albuterol (PROVENTIL,VENTOLIN) 2.5 mg /3 mL (0.083 %) nebulizer solution Inhale 3 mL (2.5 mg total)by nebulization every 6 (six) hours as needed for wheezing. Patient takes it every 2 hours Yes Not In System Ref Prov amitriptyline (ELAVIL) 25 mg tablet Take 1 tablet (25 mg total) by mouth in the morning. Yes Not InSystem Ref Prov dapagliflozin propanediol (FARXIGA) 10 mg tablet Take 1 tablet (10 mg total) by mouth in the morning. 09/12/23 Yes APRIL Agrawal folic acid (FOLVITE) 1 mg tablet Take 1 tablet (1 mg total) by mouth in the morning. Yes Not In System Ref Prov furosemide (LASIX) 20 mg tablet Take 1 tablet (20 mg total) by mouth 2 (two) times a day before meals. 09/11/23 Yes APRIL Agrawal hydrOXYzine (ATARAX) 50 mg tablet Take 1-2 tablets (50-100 mg total) by mouth nightly as needed (sleep). Yes Not In System Ref Prov melatonin (CIRCADIN) tablet Take 2 tablets (6 mg total) by mouth nightly. Yes Not In System Ref Prov metFORMIN XR (GLUCOPHAGE XR) 750 mg 24 hr tablet Take 1 tablet (750 mg total) by mouth nightly. YesNot In System Ref Prov metoprolol (LOPRESSOR) 12.5 mg Take 1 split tablet (12.5 mg total) by mouth in the morning and 1 split tablet (12.5 mg total) before bedtime. Yes Not In System Ref Prov PARoxetine (PAXIL) 10 mg tablet Take 1 tablet (10 mg total) by mouth every morning. Yes Not In System Ref Prov simethicone (MYLICON) 80 mg chewable tablet Chew 1 tablet (80 mg total) and swallow every 6 (six) hours as needed for flatulence. Yes Not In System Ref Prov simvastatin (ZOCOR) 40 mg tablet Take 1 tablet (40 mg total) by mouth nightly. Yes Not In System Ref Prov ticagrelor (BRILINTA) 90 mg tablet Take 1 tablet (90 mg total) by mouth every 12 (twelve) hours. Yes Not In System Ref Prov benzonatate (TESSALON PERLES) 200 mg capsule Take 1 capsule (200 mg total) by mouth 3 (three) timesa day as needed for cough. Patient not taking: Reported on 10/20/2023 07/27/23 Maggie Cruz APRN-SHERIDAN HYDROcodone-acetaminophen (NORCO) 5-325 mg per tablet Take 1 tablet by mouth every 6 (six) hours asneeded. Patient not taking: Reported on 10/20/2023 Not In System Ref Prov nitroglycerin (NITROSTAT) 0.[address] 1 tablet (0.4 mg total) under the tongue every 5 (five) minutes as needed for chest pain. Not In System Ref Prov Code Status: Full Code Past Medical History: Patient has a past medical history of Acute coronary syndrome ([facility]), Anxiety disorder, Chronic back pain, Chronic obstructive asthma with exacerbation ([facility]), COPD (chronic obstructive pulmonary disease) [facility] Diabetes mellitus type 2, controlled ([facility]), Essential hypertension, Folate deficiency anemia, Heart failure ([facility]), Megaloblastic anemia, VT (myocardial infarction) [facility]) (06/2023), Muscle weakness (generalized), Myocardial infarct ([facility]), Obesity, Obstructive sleep apnea, SARAH (obstructive sleep apnea), Pancytopenia ([facility]), Presence of coronary artery bypassgraft stent, Shock ([facility]) (10/05/2023), and Supplemental oxygen dependent. Past Surgical History: Patient has a past surgical history that includes Cardiac surgery. Family History: Patient's family history includes Cancer in his father and mother; Diabetes in his father and mother; Heart attack in his father and mother; Stroke in his father and mother. Social History: Patient reports that he has never smoked. He has never used smokeless tobacco. He reports that he does not currently use alcohol. He reports that he does not use drugs. Review of Systems Constitutional: Positive for fatigue. Negative for chills and fever. HENT: Negative for ear pain and sore throat. Eyes: Negative for pain and visual disturbance. Respiratory: Positive for shortness of breath. Negative for cough. Cardiovascular: Negative for chest pain and palpitations. Gastrointestinal: Negative for abdominal pain, constipation, diarrhea, nausea and vomiting. Genitourinary: Negative for dysuria and hematuria. Musculoskeletal: Positive for back pain. Negative for arthralgias. Skin: Negative for color change and rash. Neurological: Positive for weakness. Negative for seizures and syncope. All other systems reviewed and are negative. OBJECTIVE BP 120/55 Pulse 62 Temp 36.3 C (97.4 F) (Oral) Resp 18 Ht 152.4 cm (5') SpO2 100% BMI 45.47 kg/m Temp: [36.3 C (97.4 F)-37 C (98.6 F)] 36.3 C (97.4 F) Pulse: [58-73] 62 Resp: [14-26] 18 BP: (74-123)/(34-96) 120/55 SpO2: [94 %-100 %] 100 % O2 Device: Nasal cannula O2 Flow Rate (L/min): [2 L/min] 2 L/min No intake or output data in the 24 hours ending 10/20/23 1445 Physical Exam Constitutional: General: He is not in acute distress. Appearance: He is well-developed. HENT: Head: Normocephalic. Right Ear: External ear normal. Left Ear: External ear normal. Nose: Nose normal. Eyes: Conjunctiva/sclera: Conjunctivae normal. Pupils: Pupils are equal, round, and reactive to light. Cardiovascular: Rate and Rhythm: Normal rate and regular rhythm. Heart sounds: Normal heart sounds. No murmur heard. Pulmonary: Effort: Pulmonary effort is normal. Breath sounds: Normal breath sounds. No wheezing. Abdominal: General: Bowel sounds are normal. Palpations: Abdomen is soft. There is no mass. Tenderness: There is no abdominal tenderness. Musculoskeletal: General: Normal range of motion. Cervical back: Normal range of motion. Lymphadenopathy: Cervical: No cervical adenopathy. Skin: General: Skin is warm and dry. Findings: No rash. Neurological: Mental Status: He is alert. Cranial Nerves: No cranial nerve deficit. Coordination: Coordination normal. Psychiatric: Behavior: Behavior normal. Medications Scheduled: atorvastatin, 20 mg, oral, Nightly insulin lispro, 2-10 Units, subcutaneous, TID with meals insulin lispro, 2-8 Units, subcutaneous, Nightly metoprolol succinate XL, 25 mg, oral, Daily sodium chloride, 3 mL, intravenous, Q12H LYNN Infusions: sodium chloride 0.9 %, 20 mL/hr As Needed: acetaminophen dextrose dextrose 50 % in water (D50W) glucagon (human recombinant) magnesium sulfate magnesium sulfate ondansetron potassium chloride OR potassium chloride sodium chloride sodium chloride sodium chloride 0.9 % Allergies: Patient has no known allergies. Labs Recent Results (from the past 24 hour(s)) CBC auto differential Collection Time: 10/20/23 1:40 AM Result Value Ref Range White Blood Cells 11.0 4.0 - 11.0 X10E9/L RBC count 2.73 (L) 4.10 - 5.70 X10E12/L Hemoglobin 8.9 (L) 13.0 - 17.0 g/dL Hematocrit 26.4 (L) 39 - 49 % MCV 97 80 - 100 fL MCH 32.7 27 - 34 pg MCHC 33.8 32 - 36 g/dL RDW 17.7 (H) 11.5 - 15.0 % Platelets 204 150 - 450 X10E9/L MPV 9.9 7 - 12 fL % neutrophils 75.1 % % lymphocytes 16.9 % % monocytes 5.7 % % eosinophils 1.0 % % Basophils 1.3 % Neutrophils Absolute (A) 8.3 (H) 1.5 - 6.6 X10E9/L Lymphocytes Absolute 1.9 1.0 - 3.5 X10E9/L Monocytes Absolute 0.6 0 - 0.9 X10E9/L Eosinophils Absolute 0.1 0.0 - 0.4 X10E9/L Basophils Absolute 0.1 0.0 - 0.2 X10E9/L Comprehensive metabolic panel Collection Time: 10/20/23 1:40 AM Result Value Ref Range Sodium 135 134 - 146 mmol/L Potassium, Bld 3.0 (L) 3.5 - 5.0 mmol/L Chloride 95 (L) 98 - 109 mmol/L CO2 27 22 - 32 mmol/L Anion gap 13 5 - 15 mmol/L BUN 20 5 - 27 mg/dL Creatinine 1.70 (H) 0.70 - 1.20 mg/dL Glucose 130 (H) 65 - 99 mg/dL Calcium 8.7 8.5 - 10.5 mg/dL Total Protein 7.8 6.0 - 8.0 g/dL Albumin 3.6 3.2 - 5.3 g/dL Alkaline Phosphatase 105 39 - 130 U/L AST 42 (H) 0 - 41 U/L ALT 28 0 - 40 U/L Total bilirubin 1.3 (H) 0.3 - 1.2 mg/dL eGFR (CKD-EPI)non-race dependent 42 (L) >59 ml/min/1.73sq.m D-Dimer Collection Time: 10/20/23 1:40 AM Result Value Ref Range D-dimer 4,961 (H) <255 ng/mL DDU Lactate w/ Reflex Collection Time: 10/20/23 1:40 AM Result Value Ref Range Lactate w/ Reflex 3.4 (H) 0.4 - 2.0 mmol/L Lipase Collection Time: 10/20/23 1:40 AM Result Value Ref Range Lipase 61 (H) 17 - 40 U/L Troponin I, High Sensitivity Collection Time: 10/20/23 1:40 AM Result Value Ref Range Troponin I, High Sensitivity 32 (H) <21 ng/L B-type natriuretic peptide Collection Time: 10/20/23 1:40 AM Result Value Ref Range BNP 104 (H) <100.0 pg/mL Troponin I, High Sensitivity 1 Hour Collection Time: 10/20/23 2:45 AM Result Value Ref Range 1 Hour Trop I, High Sensitivity 33 (H) <21 ng/L Urinalysis Collection Time: 10/20/23 4:53 AM Result Value Ref Range Color YELLOW YELLOW^YELLOW Turbidity CLEAR CLEAR^CLEAR Specific gravity 1.015 1.003 - 1.035 Nitrite Negative Negative^Negative Ph urine 6.0 5.0 - 8.5 Leukocyte esterase SMALL (A) Negative^Negative Protein Trace (A) Negative^Negative mg/dL Glucose, Ur 100 (A) Negative^Negative mg/dL Ketones urine Negative Negative^Negative mg/dL Urobilinogen 0.2 <1.1 eu/dL Bilirubin, urine Negative Negative^Negative Hemoglobin SMALL (A) Negative^Negative WBC 11 (H) 0 - 5 /hpf RBC 4 0 - 5 /hpf Squamous epithelium 4 0 - 5 /hpf Lactate Collection Time: 10/20/23 5:22 AM Result Value Ref Range Lactate 1.1 0.4 - 2.0 mmol/L Magnesium Collection Time: 10/20/23 10:04 AM Result Value Ref Range Magnesium 1.2 (L) 1.8 - 2.6 mg/dL Troponin I, High Sensitivity 3 Hour Collection Time: 10/20/23 10:04 AM Result Value Ref Range 3 Hour Trop I, High Sensitivity 37 (H) <21 ng/L Bedside Glucose *Place/Obtain serum glucose if >500(>600 MRH) per glucometer. Collection Time: 10/20/23 10:59 AM Result Value Ref Range Bedside glucose 107 (H) 65 - 99 mg/dL Troponin I, High Sensitivity 3 Hour Collection Time: 10/20/23 1:17 PM Result Value Ref Range 3 Hour Trop I, High Sensitivity 32 (H) <21 ng/L Radiology Vas venous duplex lwr bilateral Result Date: 10/20/2023 Narrative: Right: Common femoral, femoral, popliteal and deep calf muscle veins are compressible without intraluminal content. Spontaneous, phasic common femoral, femoral and popliteal spectral Doppler signals. Compressible thigh superficial Great saphenous vein. Left: Common femoral, femoral, popliteal and deep calf muscle veins are compressible without intraluminal content. Spontaneous, phasic common femoral, femoral and popliteal spectral Doppler signals. Absent Great saphenous superficial vein in the thigh. General: In- patient, bedside examination. Conclusions: RIGHT: NO EVIDENCE of deep or superficial vein thrombosis of the lower extremity.LEFT: The great saphenous vein is not visualized or surgically absent in the thigh. NO EVIDENCE of deep or superficial vein thrombosis of the lower extremity. Recommendations: Any questions prior to finalization, please call the reading physicianduring normal business hours at the phone number beside their name. NM pulmonary perfusion scan Result Date: 10/20/2023 Narrative: PERFUSION LUNG SCAN COMPARISON: None. CORRELATION: Chest radiograph 10/20/2023 HISTORY: Chest pain, shortness breath. TECHNIQUE: 5.6 mCi technetium 99m MAA injected intravenously without reported complication. Planar images of the lungs obtained in multiple projections for both ventilation and perfusion. FINDINGS: Normal heterogeneous uptake seen within the right lung. Large perfusion defect involving a majority of the left mid/lower lung. Of note, patient has evidence of moderate left pleural effusion on prior chest x-ray which may be causing significant compressive atelectasis IMPRESSION: * Large perfusion defect involving majority of the left mid/lower lung with underlying pleural effusion on the chest radiograph.. * Intermediate probability for pulmonary embolism. * A central or hilar obstructing lesion to the left lower lobe cannot be excluded in the setting. * Ventilation imaging was not performed. Approved by Resident Pavan Durbin DO on 10/20/2023 2:00 PM Sheri Marcial MD have personally reviewed the image(s) and agree with and/or edited the report Finalized by Kye Kapadia MD on 10/20/2023 2:20 PM X-ray chest 1 view Result Date: 10/20/2023 Narrative: XR CHEST 1 VW HISTORY: Shortness of breath COMPARISON: 10/11/2023 FINDINGS: Interval removal of left neck catheter. Prior median sternotomy. Left shoulder tenodesis. Small left pleural effusion and left lower lobe airspace opacification does not appear significantly changed across multiple prior examinations. Cardiac mediastinal silhouette appears stable and within normal limits given portable technique. IMPRESSION: * No significant interval change other than left IJ central venous catheter having been removed.. Approved by Resident: Agustin Flores MD on 10/20/2023 2:12 AM Shiv Marcial MD have personally reviewed the image(s) and agree with and/or edited the report Finalized by Shiv Pinzon MD on 10/20/2023 2:17 AM X-ray spine lumbar 2 or 3 views Result Date: 10/20/2023 Narrative: Clinical history: Status post fall, back pain. Comparisons: None Findings: AP and lateral lumbar spine radiographs obtained. 5 lumbar-like vertebral bodies are present in normal alignment.There is an anterior wedge compression fracture at T12 which was not present on a CT chest 10/04/2023. The other vertebral body heights are preserved. Some changes of degenerative disc disease are present at L5-S1. No malalignment. Left lower pole renal calculi are present. Bifurcated abdominal aortic endograft and vascular calculations are present. IMPRESSION: 1. Anterior wedge compression fracture T12, new when compared with CT scan 10/04/2023. 2. Degenerative disc disease L5-S1. Finalized by Shiv Pinzon MD on 10/20/2023 2:15 AM X-ray chest 1 view Result Date: 10/11/2023 Narrative: History: Pleural effusion EXAM: Chest AP portable upright COMPARISON: 10/09/2023 FINDINGS: Stable left IJ central line. Unchanged cardiac silhouette, left pleural effusion, adjacent atelectasis. No pneumothorax right lung is clear. IMPRESSION: No significant change. Finalized by Dagoberto Wiley MD on 10/11/2023 9:39 AM Ultrasound abdomen limited with duplex Result Date: 10/10/2023 Narrative: Abdominal ultrasound with Doppler, 10/10/2023. History: Dyspnea, fluid overload. Comparison: CT abdomen and pelvis 10/04/2023. Technique: Grayscale sonographic imaging of the right upper quadrant was performed. Color and spectral Doppler ultrasound was used to assess blood flow characteristics. Findings: The liver parenchyma is diffusely echogenic with decreased through- transmission. Liver measures 11.0 cm craniocaudal at mid clavicular line. No discrete mass. No definite intra- or extrahepatic biliary dilatation is seen. No significant abdominal ascites. Gallbladder demonstrates no wall thickening or pericholecystic fluid. The common bile duct measures 5 mm which is within the range of normal. No free fluid is demonstrated. Color and spectral Doppler ultrasound was performed to assess the hepatic vasculature. Blood flow within the main portal vein is hepatopedal with a peak systolic velocity of 27.7 cm/sec. Spectral waveforms are normal. The hepatic veins, hepatic arteries and inferior vena cava are patent with normal spectral waveforms. Impression: * No evidence of acute vascular abnormality. * Echogenic liver parenchyma compatible with hepatocellular disease, most commonly steatosis. Finalized by Braulio De Anda MD on 10/10/2023 8:53 PM X-ray chest 1 view Result Date: 10/09/2023 Narrative: CHEST 1 VIEW HISTORY: Postthoracentesis COMPARISON: 10/08/2023 FINDINGS: Stable left-sided central venous catheter and sternotomy wires. Unchanged small left pleural effusion with adjacent atelectasis. No pneumothorax. Right lung is clear. IMPRESSION: No significant interval change. Finalized by Edilberto Willoughby MD on 10/09/2023 8:42 AM X-ray chest 1 view Result Date: 10/08/2023 Narrative: Single view chest History:post thoracentesis Difficulty breathing, shortness of breath Comparison: 10/06/2023 Findings: Single portable view of the chest. Left jugular catheter is stable. Decreased left pleural effusion with left lower lung atelectasis versus pneumonia. Stable cardiomediastinal silhouette. Mild vascular congestion. Impression: Decreased left pleural effusion with persistent left lower lung atelectasis versus pneumonia. Finalized by Kye Kapadia MD on 10/08/2023 7:08 AM IR thoracentesis with guidance left Result Date: 10/07/2023 Narrative: Ultrasound-guided left thoracentesis. Indication: pleural effusion, shortness of breath.Consent: The risks and benefits of the procedure were explained to the patient signed written consent. TIME OUT: [place] Protocol Time Out Verification performed. Procedure details: In the sitting position, the left chest was evaluated with ultrasound and this revealed small pleural effusion. Theposterior left chest was prepped and draped in a sterile fashion and the skin was infiltrated with 1% lidocaine. A small skin francois with an 11 blade was made. Using real-time ultrasound guidance, an 18-gauge Yueh needle was advanced in the left posterior pleural cavity during direct ultrasound needle visualization, and an ultrasound customer account representative image was obtained and saved in PACS; the catheterwas connected to a vacuum bottle, and approximately 0.5 liters of yellow fluid was removed and sentfor analysis. The needle was removed and dressing placed. No immediate complications. Estimated blood loss: 0 mL of blood. Batch Operator: None. Complications: None. Impression: Ultrasound-guided left thoracentesis revealing 0.5 liters of fluid. Finalized by Cami Andre MD on 10/07/2023 6:31 PM X-ray chest 1 view Result Date: 10/06/2023 Narrative: Clinical history: Acute respiratory failure Views: 1 Comparison: 10/05/2023 Findings/Impression: 1. Left pleural effusion with atelectasis. Right lung clear. Heart size prominent. Vasculature stable. Central line overlies SVC. 2. In summary, continued abnormal chest without interval change. Finalized by Ricardo Serra MD on 10/06/2023 7:39 AM IR CICV non tunneled more than 5 years Result Date: 10/05/2023 Narrative: CLINICAL INDICATION: ESRD, need for dialysis COMPARISON: None TECHNIQUE: Procedure performed by Interventional Radiologist Neo Anne MD Reference Air Kerma = 17.8 mGy Fluoroscopy time:1.1 minutes Saved images: 3 CONSENT: The reason of the procedure was discussed with the patient. The procedure, expectations, risks, benefits, options and alternatives were discussed. All of the patient?s questions were answered. The patient understands that the results cannot be guaranteed. The procedure is indicated and the risks are acceptable. Consent was obtained. PROCEDURE: 1. Ultrasound-guided left internal jugular vein access. Placement of a temporary trialysis catheter. Details of procedure: Patient placed in the supine position. The left neck was prepped and draped in the usual sterile fashion. Under continuous ultrasound guidance, a patent and compressible left internal jugular vein was accessed with a micropuncture needle. Permanent ultrasound images were stored in PACS. A micr owire was placed into the right atrium. A skin francois was made. The needle was removed. A micropuncture sheath was placed. The inner dilator and wire were removed. An Amplatz wire was advanced into theIVC. The micropuncture sheath was then removed. The track was dilated. A temporary trialysis catheter was placed.. The wire was removed. 2-0 Prolene suture was used to secure the line to the skin. All the lumens aspirated and flushed appropriately. Sterile caps applied. A sterile dressing was applied. Patient tolerated the procedure well and there were no immediate complications. FINDINGS: Patentand compressible left internal jugular vein. Satisfactory placement of temporary trialysis catheterIMPRESSION: Successful ultrasound and fluoroscopic guided placement of left internal jugular trialysis catheter Okay to use Finalized by Neo Anne on 10/05/2023 7:02 PM X-ray chest 1 view Result Date: 10/05/2023 Narrative: History: Known pleural effusion, reassess severity Exam/Technique: AP view of the chest.XR CHEST 1 VW Comparison: Recent studies Findings: The heart mediastinum are grossly stable howeverleft hemithorax and heart border obscured by overlapping disease. Mild congestion improved from 09/08/2023. No focal right lung disease. Persistent consolidation and suspected effusion left mid and lower lung. IMPRESSION: * Mild congestion improved from previous with persistent large consolidation and effusion obscuring the left mid and lower hemithorax. Finalized by Soham Chatman DO on 10/05/2023 12:[address] abdomen and pelvis without contrast Result Date: 10/05/2023 Narrative: Noncontrast CT abdomen and pelvis, 10/04/2023. History: Acute abdominal pain Comparison: CT abdomen and pelvis 09/21/2023. Technique: Multiple contiguous 5 mm axial images were acquired fromthe lung bases through the ischial tuberosities. Coronal and sagittal reconstructions were performed. Automated exposure control was utilized. Findings: For evaluation of the intrathoracic structures, please refer to report from concurrent chest CT. Evaluation of abdominal structures compromised byabsence of IV contrast. Redemonstration of lobulated contour of the liver without discrete mass or i ntrahepatic biliary ductal dilatation. Normal gallbladder. Pancreas, spleen and adrenal glands are unremarkable. Nonobstructing bilateral renal calculi with the largest stone located in the left renal pelvis measuring up to 1.7 cm. No hydronephrosis or perinephric fluid collection. Urinary bladder is incompletely distended. Prostate is normal in size with coarse calcification noted. Bowel demonstrates no obstruction or acute inflammatory change. Normal appendix. No free air or fluid. No mesenteric lymph node enlargement. 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 No retroperitoneal or pelvic lymphadenopathy. Fat-containing bilateral inguinal hernias. Significant degenerative disc disease at L5-S1. No acute osseous abnormality. IMPRESSION: * No acute pathologic process. * Nonobstructing bilateral renal calculi. All CT scans at this facility use dose modulation, iterative reconstruction, and/or weight based dosing when appropriate to reduce radiation dose to as low as reasonably achievable. Finalized by Braulio De Anda MD on 10/05/2023 12:[address] chest without contrast Result Date: 10/05/2023 Narrative: Noncontrast chest CT on 10/04/2023 HISTORY: Shortness of breath, pain COMPARISON: CT abdomen and pelvis 09/21/2023 TECHNIQUE: Multiple contiguous 2.5 mm axial images of the chest were obtained. Coronal and sagittal 2-D reconstructions were performed. Automated exposure control was utilized. FINDINGS: Normal caliber thoracic aorta with moderate atherosclerotic calcification. Pulmonary artery is normal in caliber. Heart size is enlarged with severe coronary artery calcifications noted. Valvular calcifications are present. Postoperative changes compatible with CABG. No pericardial effusion. No pathologically enlarged mediastinal lymph nodes. Moderate-sized left pleural effusion with significant associated consolidative change in the left upper and lower lobes. There is a solid 5 mm pulmonary nodule in the right lower lobe along the major fissure. No pneumothorax. Central airways are patent. No chest wall lymphadenopathy. For evaluation of abdominal structures, please refer to report from concurrent CTA abdomen and pelvis. No acute osseous abnormality. IMPRESSION: * Moderate-sized left pleural effusion with associated atelectasis and/or pneumonia. * Indeterminate solid pulmonary nodule measuring less than 6 mm. In a low-risk patient with a solid nodule <6 mm, recommend no follow-up. In a high-risk patient, CT at 12 months is optional with stronger consideration if there is suspicious nodule morphology and/or upper lobe location. All CT scans at this facility use dosemodulation, iterative reconstruction, and/or weight based dosing when appropriate to reduce radiation dose to as low as reasonably achievable. Seymour Garcia, et al. Guidelines for Management of Incidental Pulmonary Nodules Detected on CT Images: From the Fleischner Society 2017. Radiology. 2017 [place];284(1):228-243. Finalized by Braulio De Anda MD on 10/05/2023 12:[address] abdomen and pelvis without contrast Result Date: 09/21/2023 Narrative: Study: CT abdomen and pelvis without contrast History:Abdominal pain flank pain side notspecified. Protocol:CT abdomen and pelvis without contrast Contrast none COMPARISON:None Findings: Lung bases:Small to moderate sized left pleural effusion left basilar atelectasis Liver:Lobulated contour of the liver no definite focal mass correlation with liver enzymes for further evaluation of potential cirrhosis Spleen normal Gallbladder:Normal Bile ducts:No dilatation Pancreas:Normal Adrenals:Normal Kidneys:Right kidney is normal. Calcifications in the upper pole calyces in the renal pelvis on the left. Staghorn configuration. No hydronephrosis. Ureters:No ureteral calculi or hydroureter Bladder:Normal Bowel:Stomach unremarkable. No small bowel dilatation. No large bowel dilatation. Normal appendix. No diverticulitis. Reproductive organs:Normal size prostate with calcification [place]:No adenopathy Peritoneum:No free air or free fluid Retroperitoneum:No adenopathy. Vessels:Aortoiliac stent present. No significant aneurysm. Abdominal wall:No hernia Bones:Normal IMPRESSION: * Calcifications in the upper pole calyces in the renal pelvis on the left. Staghorn configuration. No hydronephrosis. * Ureters:No ureteral calculi or hydroureter * Bladder:Normal * Small to moderate sizedleft pleural effusion left basilar atelectasis * Lobulated contour of the liver no definite focal mass correlation with liver enzymes for further evaluation of potential cirrhosis All CT scans at this facility use dose modulation, iterative reconstruction, and/or weight based dosing when appropriate to reduce radiation dose to as low as reasonably achievable Finalized by Vinicius Wei MD on 09/21/2023 9:44 AM HOSPITAL PROBLEM LIST Principal Problem: T12 compression fracture ([facility]) Active Problems: Benign essential hypertension Chronic diastolic congestive heart failure ([facility]) COPD (chronic obstructive pulmonary disease) ([facility]) Dyslipidemia Type 2 diabetes mellitus with hyperglycemia, without long-term current use of insulin ([facility]) ASSESSMENT & PLAN T12 compression fracture Orthopedic input appreciated Patient needs cardiology clearance before surgery Pain control Chronic diastolic congestive heart failure/COPD/shortness of breath BNP 104 D-dimer 4961 Perfusion scan showing large perfusion deficit involving majority of left lung, intermediate probability of pulmonary embolism Pulmonology consulted Heparin drip initiated Benign essential hypertension Blood pressure 102/52 Toprol-XL 25 mg daily Type 2 diabetes Blood sugar 130 Short-acting sliding scale coverage Dyslipidemia Atorvastatin 20 mg nightly Chart reviewed. Admission orders placed and home medications reconciled. DVT/VTE prophylaxis: SCD's and heparin drip GI prophylaxis: Pepcid BID DC planning: Pending clinical course Cindy Cisneros, PER DIEM PHYSICAL THERAPIST ASSISTANT-RN REFERRAL 10/20/2023 2:45 PM [facility] Internal Medicine 7AM-7PM (all facilities): EpicChat or page through Vocera. 7PM-7AM ([place] Hospital, [facility] Re[facility]): EpicChat or page, [phone]. 7PM-7AM ([place], [place], [place], [place] and [facility] Rehab): EpicChat or page through Vocera. APRIL Torrez 10/20/23 1426 Physician Attestation I, Julia Man MD, personally performed a face to face diagnostic evaluation on this patient. I have reviewed the note authored by the advance practice provider including history, review of systems,physical examination,medical decision making and agree with the assessment and plan as written. I have seen and evaluated the patient, I have repeated the benoit portions of the physical exam and concur with the RASHAUN findings. I have reviewed all laboratory findings and imaging reports/films. I agree with the plan as noted. documented in this encounterSelect Medical Specialty Hospital - YoungstownFluentify Mcl[facility] Bay [id number] Consult note* Matt Montemayor MD - 10/20/2023 10:50 AM EDTAssociated Order(s): IP CONSULT TO CARDIOLOGY Images from the original note were not included. [facility] [address] [place] [address] HISTORY & PHYSICAL / CONSULT NOTE Brian Mandel PCP: Melanie Taylor DO Date of Admission: 10/20/2023 Date of Consultation: 10/20/2023 10:50 AM Consult for elevated troponin SUBJECTIVE History of Present Illness: Brian Fitzgerald Tequila is a 73 y.o. male with a past medical history of [place] vessel ASCVD history of remote CABG x2, recent NSTEMI s/p [facility] 07/19/2023 with PCI/KARL distal LM-ostial circumflex, chronic heart failure with preserved ejection fraction, moderate to severe aortic valve regurgitation, moderate to severe aortic valve stenosis, qzul-dd-motrorhj tricuspid valve regurgitation, essential hypertension, dyslipidemia, diabetes type 2 and COPD - on home oxygen. Patient follows with a field laboratory operator in [place], [place] Cardiology is being consulted for elevated troponin Patient reports while walking to the shower he became lightheaded and blacked out. Patient called 911 who took him to [facility]. Patient was found to have new T12 compression fracture. Patientwas then transferred to [facility] for further care. Patient denies any chest pain any new or worsening shortness of breath or palpitations. Patient lives a sedentary lifestyle. He was able to walk out to his mailbox without any worsening shortness of breath or chest pain. He utilizes a motorized cart at the grocery store for convenience not because he can not breathe or experiences chest discomfort. Patient recently hospitalized at [facility] from 10/05/2023 to 10/12/2023 for septic shock andacute kidney injury. Cardiology saw patient in consultation for aortic valve stenosis, aortic valveregurgitation and coronary artery disease. At that time, patient had no significant episodes of dizziness, and denied any chest discomfort. It was noted patient was anemic and his aspirin was discontinued but patient remained on ticagrelor as single antiplatelet therapy. Asked patient improved, no additional cardiac recommendations were made. Previous Medical History: Past Medical History: Diagnosis Date Acute coronary syndrome ([facility] Anxiety disorder Chronic back pain Chronic obstructive asthma with exacerbation ([facility]) COPD (chronic obstructive pulmonary disease) ([facility] Diabetes mellitus type 2, controlled ([facility]) Essential hypertension Folate deficiency anemia Heart failure ([facility]) Megaloblastic anemia VT (myocardial infarction) ([facility]) 06/2023 Muscle weakness (generalized) Myocardial infarct ([facility]) Obesity Obstructive sleep apnea SARAH (obstructive sleep apnea) Pancytopenia ([facility]) Presence of coronary artery bypass graft stent Shock ([facility]) 10/05/2023 Supplemental oxygen dependent Previous Surgical History: Past Surgical History: Procedure Laterality Date CARDIAC SURGERY X2 Allergies: No Known Allergies Hospital Meds: Current Facility-Administered Medications Medication Dose Route Frequency Provider Last Rate Last Admin acetaminophen (TYLENOL) tablet 650 mg 650 mg oral Q4H PRN APRIL Lee dextrose (GLUTOSE) 40 % gel 15 g 15 g oral PRN APRIL Lee dextrose 50 % in water (D50W) 50% solution 25 mL 25 mL intravenous PRN APRIL Lee glucagon HCL injection 1 mg 1 mg intramuscular PRN APRIL Lee insulin lispro (HumaLOG) injection 2-10 Units 2-10 Units subcutaneous TID with meals APRIL Lee insulin lispro (HumaLOG) injection 2-8 Units 2-8 Units subcutaneous Nightly APRIL Lee magnesium sulfate IVPB 2000 mg/50 mL in iso-osmotic water (40 mg/mL premix) 2,000 mg intravenous PRN APRIL Lee magnesium sulfate IVPB 4000 mg/100 mL in iso-osmotic water (40 mg/mL premix) 4,000 mg intravenous PRN APRIL Lee ondansetron (PF) (ZOFRAN) injection 4 mg 4 mg intravenous Q8H PRN APRIL Lee potassium chloride (K-TAB,KLOR-CON) CR tablet 30-40 mEq 30-40 mEq oral PRN APRIL Lee Or potassium chloride (KAYCIEL) 20 mEq/15 mL solution 30-40 mEq 30-40 mEq oral PRN APRIL Lee sodium chloride 0.9 % flush 3 mL 3 mL intravenous PRN APRIL Lee sodium chloride 0.9 % flush 3 mL 3 mL intravenous Q12H LYNN APRIL Lee sodium chloride 0.9 % flush bag 25 mL intravenous PRAPRIL Almanzar sodium chloride 0.9 % infusion 20 mL/hr intravenous Continuous PRAPRIL Almanzar Home Meds: Prior to Admission medications Medication Sig Start Date End Date Taking? Authorizing Provider acetaminophen (TYLENOL) 325 mg tablet Take 2 tablets (650 mg total) by mouth every 8 (eight) hours as needed for pain. Yes Not In System Ref Prov albuterol (PROVENTIL,VENTOLIN) 2.5 mg /3 mL (0.083 %) nebulizer solution Inhale 3 mL (2.5 mg total)by nebulization every 6 (six) hours as needed for wheezing. Patient takes it every 2 hours Yes Not In System Ref Prov amitriptyline (ELAVIL) 25 mg tablet Take 1 tablet (25 mg total) by mouth in the morning. Yes Not InSystem Ref Prov dapagliflozin propanediol (FARXIGA) 10 mg tablet Take 1 tablet (10 mg total) by mouth in the morning. 09/12/23 Yes APRIL Agrawal folic acid (FOLVITE) 1 mg tablet Take 1 tablet (1 mg total) by mouth in the morning. Yes Not In System Ref Prov furosemide (LASIX) 20 mg tablet Take 1 tablet (20 mg total) by mouth 2 (two) times a day before meals. 09/11/23 Yes APRIL Agrawal hydrOXYzine (ATARAX) 50 mg tablet Take 1-2 tablets (50-100 mg total) by mouth nightly as needed (sleep). Yes Not In System Ref Prov melatonin (CIRCADIN) tablet Take 2 tablets (6 mg total) by mouth nightly. Yes Not In System Ref Prov metFORMIN XR (GLUCOPHAGE XR) 750 mg 24 hr tablet Take 1 tablet (750 mg total) by mouth nightly. YesNot In System Ref Prov metoprolol (LOPRESSOR) 12.5 mg Take 1 split tablet (12.5 mg total) by mouth in the morning and 1 split tablet (12.5 mg total) before bedtime. Yes Not In System Ref Prov PARoxetine (PAXIL) 10 mg tablet Take 1 tablet (10 mg total) by mouth every morning. Yes Not In System Ref Prov simethicone (MYLICON) 80 mg chewable tablet Chew 1 tablet (80 mg total) and swallow every 6 (six) hours as needed for flatulence. Yes Not In System Ref Prov simvastatin (ZOCOR) 40 mg tablet Take 1 tablet (40 mg total) by mouth nightly. Yes Not In System Ref Prov ticagrelor (BRILINTA) 90 mg tablet Take 1 tablet (90 mg total) by mouth every 12 (twelve) hours. Yes Not In System Ref Prov benzonatate (TESSALON PERLES) 200 mg capsule Take 1 capsule (200 mg total) by mouth 3 (three) timesa day as needed for cough. Patient not taking: Reported on 10/20/2023 07/27/23 APRIL Agrawal HYDROcodone-acetaminophen (NORCO) 5-325 mg per tablet Take 1 tablet by mouth every 6 (six) hours asneeded. Patient not taking: Reported on 10/20/2023 Not In System Ref Prov nitroglycerin (NITROSTAT) 0.[address] 1 tablet (0.4 mg total) under the tongue every 5 (five) minutes as needed for chest pain. Not In System Ref Prov Social History: TOBACCO: reports that he has never smoked. He has never used smokeless tobacco. ETOH: reports that he does not currently use alcohol. DRUGS: reports no history of drug use. OCCUPATION: Family History: Family History Problem Relation Age of Onset Diabetes Mother Stroke Mother Cancer Mother Heart attack Mother Heart attack Father Stroke Father Diabetes Father Cancer Father Review of Systems: Constitutional: there has been no unanticipated weight loss, no change in energy level, sleep pattern, or activity level. Eyes: No visual changes or diplopia, no scleral icterus. ENT: No Headaches, hearing loss or vertigo, no mouth sores or sore throat. Cardiovascular: See HPI Respiratory: No cough or wheezing, no sputum production, no hematemesis. Gastrointestinal: No abdominal pain, appetite loss, blood in stools, no change in bowel or bladder habits. Genitourinary: No dysuria, trouble voiding, or hematuria Musculoskeletal: No gait disturbance, weakness or joint complaints Integumentary: No rash or pruritis Neurological: No headache OBJECTIVE LAST LABS: CBC: Results from last 7 days Lab Units 10/20/23 0140 WBC X10E9/L 11.0 HEMOGLOBIN g/dL 8.9* HEMATOCRIT % 26.4* MCV fL 97 PLATELETS X10E9/L 204 BMP: Results from last 7 days Lab Units 10/20/23 0140 SODIUM mmol/L 135 POTASSIUM mmol/L 3.0* CHLORIDE mmol/L 95* CO2 mmol/L 27 BUN mg/dL 20 CREATININE mg/dL 1.70* CALCIUM mg/dL 8.7 D Dimer: Results from last 7 days Lab Units 10/20/23 0140 D DIMER ng/mL DDU 4,961* ProBNP Results from last 7 days Lab Units 10/20/23 0140 BNP pg/mL 104* Lipid Panel: Lab Results Component Value Date CHOL 136 (L) 10/05/2023 TRIG 83 10/05/2023 HDL 41 10/05/2023 HgA1C: Lab Results Component Value Date HGBA1C 5.5 09/21/2023 CV HISTORY: ECHO: Echo limited W/ contrast Result Date: 09/08/2023 Left Ventricle: Left ventricle appears normal in size. Wall thickness is normal. Systolic function is normal with an ejection fraction of 55-60%. See wall score diagram for wall motion abnormalities.Pericardium: There is pleural effusion. The study had technical difficulties. The study was difficult due to patient's body habitus and poor acoustic windows. Echo complete W/ contrast Result Date: 07/27/2023 Left Ventricle: Left ventricle appears normal in size. Systolic function is normal with an ejectionfraction of 55-60%. Right Ventricle: Systolic function is mildly reduced. Abnormal tricuspid annular plane systolic excursion. Aortic Valve: There is moderate to severe regurgitation. There is moderate to severe stenosis. The calculated aortic valve area is 0.59 cm2. The calculated aortic valve peak gradient is 68.00 mmHg. The calculated aortic valve mean gradient is 36.00 mmHg. Tricuspid Valve: There is mild to moderate regurgitation. There is no evidence of tricuspid valve stenosis. CXR: X-ray chest 1 view Result Date: 10/20/2023 XR CHEST 1 VW HISTORY: Shortness of breath COMPARISON: 10/11/2023 FINDINGS: Interval removal of leftneck catheter. Prior median sternotomy. Left shoulder tenodesis. Small left pleural effusion and left lower lobe airspace opacification does not appear significantly changed across multiple prior exam inations. Cardiac mediastinal silhouette appears stable and within normal limits given portable technique. IMPRESSION: * No significant interval change other than left IJ central venous catheter having been removed.. Approved by Resident: Agustin Flores MD on 10/20/2023 2:12 AM IShiv MD have personally reviewed the image(s) and agree with and/or edited the report Finalized by Shiv Pinzon MD on 10/20/2023 2:17 AM EKG: TELEMETRY: Sinus rhythm, heart rate 69 PHYSICAL EXAM Admission Weight: No intake/output data recorded. Weight change: Wt Readings from Last 3 Encounters: 10/12/23 105.6 kg (232 lb 12.9 oz) 10/04/23 106.1 kg (234 lb) 09/21/23 106.1 kg (234 lb) Vitals: Vitals: 08/29/24 0822 BP: 102/52 Pulse: 66 Resp: 18 Temp: 36.6 C (97.9 F) TempSrc: Oral SpO2: 100% Admit Weight Last 3 Weights There were no vitals filed for this visit. There is no height or weight on file to calculate BMI. INTAKE/OUTPUT No intake/output data recorded. No intake or output data in the 24 hours ending 10/20/23 1050 General appearance: Alert oriented and cooperative, in no acute distress Skin: Warm and dry to touch Head: Normocephalic, without obvious abnormality, atraumatic Eyes: Conjunctivae unremarkable, EOMs intact, sclera non icteric Neck: No JVD, neck supple, trachea midline Lungs: Clear to ausculation bilaterally, no use of accessory muscles. Heart: RRR with normal S1 and S2, murmur present. Abdomen: Soft, non-tender, bowel sounds normal Extremities: Trace pedal edema Neurologic: Oriented to time, person and place, affect appropriate, no focal/major motor or sensorydefects noted Psychiatric: Appropriate mood, memory and judgment ASSESSMENT Elevated high sensitivity troponin Trend: 32, 33, 37 EKG showing sinus rhythm, borderline T-wave abnormalities. No significant changes when compared to previous Patient denies any chest pain or worsening shortness of breath [place] vessel ASCVD S/p CABG x2 in 2007 per patient: FAULKNER-LAD, SVG-dRCA S/p C 07/19/2023 in the setting of NSTEMI revealing severe three-vessel ASCVD. PCI/KARL of distal left main-ostial circumflex. Widely patent sequential [id number], SVG-PDA Chronic heart failure with preserved LVEF 55-60% on TTE 07/26/2023 Moderate to severe aortic valve regurgitation on TTE 07/26/2023 Moderate to severe aortic valve stenosis on TTE 07/26/2023 Peak gradient 68.00 mmHg, mean gradient 36.0 mmHg Hkbo-gn-oeiybeno TR on TTE 07/26/2023 Essential hypertension Dyslipidemia COPD, on home supplemental oxygen New compression fracture at T12 Elevated D-dimer, 4961 ng/mL DDU Hypokalemia K 3.0 mmol/L Hypomagnesemia Mag 1.2 mg/dL Acute on chronic kidney disease Creatinine 1.7 mg/dL, BUN 20 mg/dL PLAN Patient recently had an LHC 07/11/2023 in the setting of an NSTEMI. Patient had PCI/KARL of distal left main-ostial circumflex. He was currently on single antiplatelet therapy with ticagrelor which should not be interrupted in the setting of recent stent placement. Patient reports he takes his ticagrelor b.i.d. as directed. Last dose was last night 10/19/2023. Continue to trend troponin Will resume metoprolol succinate XL and atorvastatin 20 mg daily Monitor and maintain K> 4.0, Mag > 2.0 and renal function. Replace electrolytes as needed. Will discuss any further workup with attending APRIL Preston APRN-CNP 10/20/23 1223 ATTENDING: I, Matt Montemayor MD, personally performed the face to face diagnostic evaluation on this patient. I have reviewed the RASHAUN's history, exam, and MDM and agree with the assessment and plan as written. My findings are as follows: Brian is a 73-year-old white male with history of ASCAD, status post CABG, status post non ST elevation myocardial infarction in July 11, 2023 requiring drug-eluting stent placement of ostial left circumflex artery, patent FAULKNER to LAD, patent SVG to distal RCA, normal LV systolic function, moderate to severe aortic stenosis, moderate to severe aortic regurgitation, chronic diastolic heart failure the preserved LV ejection fraction, essential hypertension, dyslipidemia, diabetes mellitus, COPD, on home oxygen therapy, chronic kidney disease, other problems as charted. Patient was seen by Dr. Orville Ledezma at [facility] on 09/13/2023 and I reviewed that note in the EHR along with the most recent hospitalization cardiology consultation note dated 10/10/2023 and progress notes dated 10/10 and 821 at [facility] by my colleague Dr. Oconnell. Patient was walking towards the shower he became lightheaded and dizzy and reportedly passed out for few seconds unwitnessed at home and in his kitchen and he called EMS and initially taken to [facility] but transfer to [facility] for further management of T12 compression fracture and we are asked to see for preoperative cardiac clearance prior to kyphoplasty which was originally scheduled for today but not performed. At the time of my evaluation patient is resting comfortably and denies any anginal chest pain or palpitation or lightheadedness or dizziness or worsening shortness of breath or cough or fever or chills or leg swelling or syncope. Sinus rhythm on telemetry. Laying in bed with O2 in place. Awake and alert. Neck no JVD. Chest fair air entry bilaterally. CVS regular rate and rhythm with aortic stenosis murmur and faint aortic regurgitation murmur. No definite S3 gallop. Abdomen soft. Extremities revealed no leg edema. Skin warm and dry. Neuro grossly nonfocal. EKG labs reviewed. Recent cardiac catheterization and 2D echocardiogram results were reviewed. IMPRESSION: Preoperative cardiac clearance prior to kyphoplasty of T12 compression fracture. Patient will be considered high cardiac risk for cele procedural cardiac complications given history of ASCAD, recent stent placement of distal left main/ostial circumflex artery in July 11, 2023 following VT, patent sequential FAULKNER to LAD and diagonal graft and patent SVG to PDA branch of RCA graft. Mildly elevated high sensitivity troponin around 30 range which is probably nonspecific in the setting of chronic kidney disease. Doubt any acute myocardial infarction. No active angina pectoris. History of syncope at home. Rule out any cardiac arrhythmias. Moderate to severe aortic stenosis with mean gradient 36 mmHg on 2D echocardiogram July 26, 2023. Moderate to severe aortic regurgitation. Hlrh-ij-jdpsielo tricuspid regurgitation. History of chronic diastolic heart failure with preserved LV ejection fraction. Hypokalemia with potassium level 3.0. Hypo magnesemia with magnesium level 1.2. Elevated D-dimer with abnormal V/Q scan revealing large perfusion defect involving left mid/lower lung with underlying pleural effusion on chest x-ray, intermediate probability for pulmonary embolism. Started on IV heparin drip per environmental construction engineer. Acute on chronic kidney disease with creatinine 1.7. History of COPD. Other problems as charted. RECOMMENDATION/PLAN: As ordered. Continue metoprolol XL, atorvastatin, heparin. Replace potassium and maintain level around 4.0 range and replace magnesium and maintain level around 2.0 range Patient will be at high-risk for stent thrombosis of distal left main/ostial left circumflex arterywhich was just performed on July 11, 2023 and suggest resuming Brilinta as antiplatelet agent YVONNE. Currently it is on hold and if no plans for any surgery, suggest resuming Brilinta tonight for cardio protection. Patient will be at high-risk for the planned T12 compression fracture kyphoplasty. Discussed these issues with patient in the presence of patient's nurse at bedside at the time of my rounds. He voices understanding. Will arrange for outpatient follow-up with our structural heart team regarding moderate to severe aortic stenosis/aortic regurgitation in the presence of syncope unwitnessed and as reported. I advised the nurse to contact the surgeon and gave my cell phone numbers so that he can call me directly and I will try to talk to him personally regarding high cardiac risk perioperatively. There were no family members available at bedside. Patient told me that his children live out of state. Will follow. Thank you. Matt Montemayor MD, [facility] This note was completed using a voice taffy puller system. Every effort was made to ensure accuracy. However, inadvertent computerized taffy puller errors may be present. [employer] Work Phone: [phone]) 335-109508-21-2024 Nurse Note* Doug Rice RN - 10/12/2023 4:14 PM EDT Pt being discharged to home with home health services. AVS given and reviewed. Rx's, Med list, s/s when to seek medical assistance, follow-up appointments, and labs reviewed. Pts friend, Santos, transporting patient to patients home. Santos was unable to bring an oxygen tank. Pt stated that he would befine to go without oxygen until he gets home. Pt declined assistance from investigative writer. Pt assisted to entrance A in wheelchair and into Santos's private vehicle by investigative writer. * Gisele Peoples RN - 10/10/2023 5:44 PM EDT RN spoke with Critical care fellow Dr. Grace Palomo regarding bumex and diamox orders placed by Dr. Banerjee. Per Dr. Palomo do not give these medications at this time. Will reassess after ABD US scheduled for this evening. * Mitchel Plata RN - 10/05/2023 6:43 PM EDT Left neck and chest areas cleaned with hibiclens and followed with chloraprep documented in this encounterOhio[facility]24 Miscellaneous Notes* Plan of Care - Doug Rice RN - 10/12/2023 2:04 PM EDT Problem: Pain Goal: Patient goal is pain score less than 4, able to rest, and participant in treatment plan as appropriate Description: INTERVENTIONS: 1. Encourage patient or legal customer account representative to report early pain and ask for pain medicine when needed 2. Assess pain using appropriate pain scale and include the scale used when documenting 3. Administer analgesics based on type and severity of pain and evaluate response within appropriate time frame 4. Implement non-pharmacological measures as appropriate and evaluate response 5. Consider cultural and social influences on pain and pain management 6. Notify LIP if interventions ineffective or patient reports new pain 7. Monitor vital signs including pulse ox, end-tidal CO2 based on pain intervention 8. Reassess pain per policy 9. Teach patient or legal customer account representative interventions for comforting Outcome: Adequate for Discharge Note: Evaluation of progress towards goal: pt denies pain this shift. Problem: Safety Goal: Patient will be injury free during hospitalization Description: INTERVENTIONS: 1. Assess patient's risk for falls and implement fall prevention plan of care per policy 2. Provide and maintain a safe environment 3. Proper use of double Identifiers 4. Medication administration using the 5 rights 5. Hand hygiene 6. Specimens are labeled at the bedside 7. Instruct patient/ patient customer account representative about use of safety devices 8. Include patient/ patient customer account representative in decisions related to safety Outcome: Adequate for Discharge Note: Evaluation of progress towards goal: pt injury free this shift. Problem: Infection Goal: Absence of infection during hospitalization Description: Interventions: 1. Assess and monitor for signs and symptoms of infection 2. Monitor lab/diagnostic results 3. Monitor all insertion sites i.e., indwelling lines, tubes and drains 4. Monitor endotracheal (as able) and nasal secretions for changes in amount and color 5. Administer medications as ordered 6. Instruct and encourage patient and family to use good hand hygiene technique 7. Identify and instruct patient/patient customer account representative in use of appropriate isolation precautionsfor identified infection/symptoms 8. Provide and discuss with patient/patient customer account representative on educational MDRO sheet 9. Encourage and monitor nutritional status daily and consult court monitor if indicated 10. Implement neutropenic guidelines as needed 11. Review exposure to history of communicable disease and recent travel history on admission 12. Encourage annual influenza vaccine 13. Encourage pneumonia vaccine Outcome: Adequate for Discharge Note: Evaluation of progress towards goal: pt afebrile this shift. Problem: Knowledge Deficit Goal: Patient/patient customer account representative demonstrates understanding of disease process, treatment plan,medications, and discharge instructions Description: INTERVENTIONS 1. Complete learning assessment and assess knowledge base 2. Provide teaching at level of understanding 3. Provide teaching via preferred learning method(s) Outcome: Adequate for Discharge Note: Evaluation of progress towards goal: pt participatory in dc and poc education. Problem: Discharge Planning Goal: Discharge to post-acute care, other facility, or home with appropriate resources Description: Patient's goal is: INTERVENTIONS 1. Conduct assessment to determine patient/family and health care team treatment goals, and need for post-acute services based on payer coverage, community resources, and patient preferences, and barriers to discharge 2. Coordinate with Social work, Care Navigation, and Utilization Review to arrange appropriate level of services according to patient's needs based on patient preference and payer coverage in collaboration with the physician and health care team 3. Address psychosocial, clinical, and financial barriers to discharge as identified in assessment in conjunction with the patient/family and health care team 4. Consult appropriate ancillary services (i.e.. PT/OT/ST, etc) as needed 5. Communicate with and update the patient/family, physician, and health care team regarding progress on the discharge plan 6. Identify discharge learning needs (meds, wound care, etc). 7. Arrange for needed discharge transportation as appropriate Outcome: Adequate for Discharge Note: Evaluation of progress towards goal: dc planning complete. Pt going home with home care per his request. Problem: Moderate - High Risk Fall Score Description: Bell Fall Score of =/> 25 or indicated by [facility] Assessment Goal: Patient should be free from fall Description: Interventions: 1. [place] to environment 2. Hourly rounds addressing the 4 P's (Pain, Positioning, Possessions, Potty) 3. Clear area of hazards (spills, clutter, electrical cords, unnecessary equipment) 4. Place equipment (bed & TV controls, call light, phone, urinal) within reach 5. Encourage patient to wear glasses and hearing aides as appropriate 6. Maintain bed in lowest position 7. Lock wheels on bed/wheelchair 8. Provide adequate lighting, including night light 9. Assess need for additional bedding, food/fluids, pain med's prior to sleep/routinely 10. Provide gripper slippers or personal non-skid footwear 11. Teach patient and patient customer account representative to maintain environment for safety and engage in all aspects of fall prevention program 12. Remind patient to call for help before getting out of bed 13. Initiate bed/chair/exit alarms supportive devices as appropriate, (chair wedge, no-skid floor mat, raised edge mattress, hip protectors) 14. Locate patient bed assignment for optimal visualization 15. Evaluate and identify Safe Patient Handling Equipment needs 16. Provide supervision when out of bed or chair 17. Utilize gait belt as needed to assist with ambulation 18. Place adaptive equipment (cane, walker) within reach 19. Request patient customer account representative bring adaptive equipment/mobility aids from home or obtain and provide as needed 20. Consult pharmacy regarding effects of med's affecting mobility, cognition, and alternatives 21. Obtain physician order for PT if risk factors associated with mobility are present 22. Obtain physician order for OT as appropriate 23. Utilize diversional activities 24. Educate patient and patient customer account representative how to maintain a safe environment during visitationtimes (notify nurse prior to leaving bedside) 25. Consider appropriateness of medical or non-bilingual medical assistant 26. Set up voiding schedule as appropriate (every 2 hours) Outcome: Adequate for Discharge Note: Evaluation of progress towards goal: pt fall free Problem: Glucose Imbalance Goal: Clinical indication of glucose balance is achieved Description: Patient's goal is: INTERVENTIONS 1. Monitor blood glucose levels as ordered 2. Administer medications as ordered 3. Notify physician of ineffective treatment plan Outcome: Adequate for Discharge Note: Evaluation of progress towards goal: glucose wnl. Goal: Patient's discharge needs are met Description: Patient's goal is: INTERVENTIONS 1. Assess patient for self-management skills 2. Encourage participation in diabetes management 3. Identify potential discharge barriers on admission and throughout hospital stay 4. Involve patient/S.O. in discharge planning process 5. Communicate referral to music educator as appropriate 6. Communicate referral to court monitor as appropriate 7. Collaborate with case management/secondary social studies teacher for discharge needs Outcome: Adequate for Discharge Note: Evaluation of progress towards goal: pt declining Snf placement. Requesting to go home with home care. Problem: Multi-Drug Resistant Organism / Rule-Out Infection Prevention Goal: Prevent transmission of infection Description: INTERVENTIONS 1. Place patient in private room or in room with patient with same disease 2. Discard single-use items 3. Clean reusable equipment between patients 4. Wear gloves for direct and indirect contact with patient or contaminants 5. Change gloves between tasks and procedures 6. Wash hands before and after caring for each patient 7. Wear appropriate personal protective equipment in relation to the indicated isolation type 8. Place appropriate isolation signage on patient's door 9. Provide patient/ patient customer account representative with isolation education. Outcome: Adequate for Discharge Note: Evaluation of progress towards goal: pt provided education on organism transmission prevention. Problem: Potential for Compromised Skin Integrity Goal: Skin integrity is maintained or improved Description: Patient's goal is: INTERVENTIONS 1. Perform initial skin assessment on admission and as needed 2. Turn patient every 2 hours and PRN 3. Relieve pressure to bony prominences 4. Avoid shearing 5. Keep skin clean and dry 6. Alternate a full bath with partial baths for elderly 7. Apply lotion/moisturizer on skin 8. Monitor patient's hygiene practices 9. Float heels 10. Collaborate with interdisciplinary team and initiate plans and interventions as needed Outcome: Adequate for Discharge Note: Evaluation of progress towards goal: no new skin breakdown. Goal: Patient's nutritional intake is adequate Description: Patient's goal is: INTERVENTIONS 1. Assess and monitor food intake and supplements, patient food preferences, nausea, vomiting, labs, oral cavity (gums, teeth, tongue, mucosa), proper denture fit, and cultural beliefs 2. Monitor for signs of hypoglycemia and hyperglycemia 3. Collaborate with interdisciplinary team and initiate plan and interventions as ordered 4. Monitor patient's weight 5. Assist patient with meals/food selection 6. Assist patient with eating 7. Allow adequate time for meals 8. Provide pleasant environment during mealtime 9. Increase social contact during mealtimes 10. Plan activities to conserve energy 11. Encourage/perform oral hygiene as appropriate 12. Encourage patient to take dietary supplement as ordered 13. Collaborate with clinical court monitor 14. Include patient/ patient's customer account representative in decisions related to nutrition Outcome: Adequate for Discharge Note: Evaluation of progress towards goal: pt states good appetite and eating normally without difficulty Problem: Urinary Incontinence Goal: Perineal skin integrity is maintained or improved Description: INTERVENTIONS 1. Assess genitourinary system, perineal skin, labs (urinalysis), and history of incontinence to include past management, aggravating, and alleviating factors 2. Keep skin clean and dry 3. Apply skin protectant 4. Develop skin care regimen 5. Provide privacy when changing patients incontinence device to maintain their dignity 6. Consider placing an indwelling catheter 7. Collaborate with interdisciplinary team and initiate plans and interventions as needed Outcome: Adequate for Discharge Note: Evaluation of progress towards goal: no incontinence episodes this shift. * PT/OT/RESEARCH TEST ENGINE OPERATOR - PRIYA Cordero/Cameron - 10/12/2023 2:03 PM EDT Occupational Therapy Treatment Discharge Recommendations OT Recommendations : [facility] Comments: Pt presents with decline in functional indepence, activity tolerance and decreased functional independence. Pt would benefit from further skilled therapy services in SNF setting to address deficits, pt unable to care for self in home setting at this time. 6 Clicks: Daily Activity Putting on and taking off regular lower body clothing?: A lot Bathing (including washing, rinsing, drying)?: A lot Toileting, which includes using toilet, bedpan or urinal?: A little Putting on and taking off regular upper body clothing?: A little Taking care of personal grooming such as brushing teeth?: None Eating meals?: None Scoring Daily Activity Raw Score: 18 CMS G Code Modifier: CK 10/12/23 1159 UE ROM UE ROM exercises performed? Yes Scapular retraction x Shoulder flexion/extension x Shoulder horizontal abduction/adduction x Elbow flexion/extension x Other BUE AROM Repetitions 15 OT Treatment/Interventions: ADL retraining, Functional transfer training, UE strengthening/ROM, Endurance training, Patient/family training, Equipment eval/education, Balance, Home management, Bed mobility, Compensatory technique education, Functional activities OT Frequency: 5-6days/week Assessment Patient Assessment Patient Response to Treatment: Progressing toward goals Visit RN Communication: Yes Medical Record Reviewed: Yes OT Type of Visit: Treatment Precautions Activity: ok to tx per RN, early mobility: pass Equipment: Gait belt, RW, IV pole, O2 Telemetry/Lawn Mower Operator: Yes Oxygen Used: 2L O2 Other: High fall risk Pain Assessment Pain Assessment: No/denies pain ADL / IADL Other: pt. declined ADLs this a.m. Home Management - IADL Other: pt. declined ADLs this a.m. Hearing / Speech / Vision Hearing: Hard of hearing/hearing concerns Speech: Within Functional Limits Current Vision: Wears glasses only for reading Cognition Attention Span: Attends with cues to redirect Orientation Level: Oriented X4 Safety Judgment: Decreased awareness of need for safety Other: pt agreeable to all therapy tasks this date - poor safety awareness noted. Bed Mobility Supine to Sit: Contact guard assist Sit to Supine: Unable to assess Other: with HOB slightly elevated - cues for technique and encouraged to utilize bed rails. Increased effort to complete transition. Pt. left sitting in chair at end of tx. session with call light inreach, tray table near and RN aware. Transfers Sit to Stand: Min assist Stand to Sit: Min assist Other: Pt. required cues for proper hand placement prior to sit/stand - poor carryover noted as pt.attempting to pull up from RW. Completed multiple STS this date working on technique/improving tolerance. No c/o dizziness noted. Gait Gait Assistance: Min assist Assistive Device: Rolling walker Gait Distance: Functional short distance of 30 feet and 3 feet x2 and 15 feet. Other: pt. slow and unsteady - close chair follow for safety and assistance for line management. Required cues for technique and manuevering RW around environmental objects in hallway. Required multiple short seated rest breaks as distance limited d/t fatigue. Pt. completed 3 steps this date with min A and FRONT END WEB DEVELOPER of TARIFF COUNSEL - mild unsteadiness and cues for sequencing. Balance Sitting Balance: Static: Good Sitting Balance: Dynamic: Fair Standing Balance: Static: Fair Standing Balance: Dynamic: Fair (-) Other: with UE support on RW in standing - mild unsteadiness noted. Activity Tolerance Endurance: Tolerates >30 minutes activity with rest breaks Other: pt. required frequent rest breaks throughout tx. session d/t fatigue and SOB - SpO2 monitored throughout tx. session and remained above 90%. Increased time spent on education with safe home d/c, set-up and DME. Plan Occupational Therapy Care Plan Occupational Therapy Care Plan (Active) Template: OT - Occupational Therapy Problem: Activity Tolerance Dates: Start: 10/10/23 Disciplines: OT Goal: Tolerate > 30 minutes of activity WITH rest breaks Dates: Start: 10/10/23 Expected End: 11/10/23 Description: Goal Description: Disciplines: OT Outcomes Date/Time User Outcome 10/12/23 1403 JOAQUIN Cordero Progressing Goal Note filed on 10/12/23 1403 by JOAQUIN Cordero Evaluation of progress towards goal: Problem: Bed Mobility Dates: Start: 10/10/23 Disciplines: OT Goal: Patient will perform bed mobility with Modified [place] Dates: Start: 10/10/23 Expected End: 11/10/23 Description: Goal Description: Disciplines: OT Outcomes Date/Time User Outcome 10/12/23 1403 JOAQUIN Cordero Progressing Goal Note filed on 10/12/23 1403 by JOAQUIN Cordero Evaluation of progress towards goal: Problem: Functional Mobility Dates: Start: 10/10/23 Disciplines: OT Goal: Patient will perform functional mobility with Modified [place] Dates: Start: 10/10/23 Expected End: 11/10/23 Description: Functional household distances using RW Disciplines: OT Outcomes Date/Time User Outcome 10/12/23 1403 JOAQUIN Cordero Progressing Goal Note filed on 10/12/23 1403 by JOAQUIN Cordero Evaluation of progress towards goal: Problem: Other (Customize) Dates: Start: 10/10/23 Disciplines: OT Goal: Improve Dates: Start: 10/10/23 Expected End: 11/10/23 Description: Perform ADL's with mod I Disciplines: OT Problem: Standing Balance Dates: Start: 10/10/23 Disciplines: OT Goal: Improve balance to good Dates: Start: 10/10/23 Expected End: 11/10/23 Description: 10 mins standing activity to increase tolerance for grooming at the sink Disciplines: OT Outcomes Date/Time User Outcome 10/12/23 1403 JOAQUIN Cordero Progressing Goal Note filed on 10/12/23 1403 by JOAQUIN Cordero Evaluation of progress towards goal: Problem: Strength Dates: Start: 10/10/23 Disciplines: OT Goal: Improve strength Dates: Start: 10/10/23 Expected End: 11/10/23 Description: Tolerate BUE HEP to increase strength to 5/5 Disciplines: OT Outcomes Date/Time User Outcome 10/12/23 1403 JOAQUIN Cordero Progressing Goal Note filed on 10/12/23 1403 by JOAQUIN Cordero Evaluation of progress towards goal: Problem: Toilet Transfers Dates: Start: 10/10/23 Disciplines: OT Goal: Patient will perform toilet transfers with Modified [place] Dates: Start: 10/10/23 Expected End: 11/10/23 Description: Goal Description: Disciplines: OT Problem: Transfers Dates: Start: 10/10/23 Disciplines: OT Goal: Patient will perform transfers with Modified [place] Dates: Start: 10/10/23 Expected End: 11/10/23 Description: Goal Description: Disciplines: OT Outcomes Date/Time User Outcome 10/12/23 1403 JOAQUIN Cordero Progressing Goal Note filed on 10/12/23 1403 by JOAQUIN Cordero Evaluation of progress towards goal: Occupational Therapy Care Plan (Resolved) There are no resolved problems. Principal Problem: Shock (CMS-HCC) Associated attestation - Seema Acosta OTR/L - 10/12/2023 2:10 PM EDT I have reviewed and agree with this note and education documentation for this visit. * Discharge Planning Note - Ama Scherer RN - 10/12/2023 1:37 PM EDT DISCHARGE PLANNING NOTE Pt to dc home with resuming [facility]. Pt refusing SNF recommendation at this time. Denies needs at this time from CN. CRF sent to [facility] - Ama Scherer RN 10/12/23 1:38 PM * PT/OT/RESEARCH TEST ENGINE OPERATOR - Shira Aguiar PTA - 10/12/2023 11:58 AM EDT Physical Therapy Treatment Discharge Recommendations PT Recommendations: [facility] Comments: Pt presents with decline in functional indepence, activity tolerance and decreased functional independence. Pt would benefit from further skilled therapy services in SNF setting to address deficits, pt unable to care for self in home setting at this time. 6 Clicks: Basic Mobility Turning from your back to your side while in a flat bed without using bed rails?: A little Moving from lying on your back to sitting on side of flat bed without using bed rails?: A little Moving to and from bed to a chair (including w/c)?: A little Standing up from a chair using your arms (e.g. w/c or bedside chair)?: A little To walk in hospital room?: A little Climbing 3-5 steps with a railing?: A little Scoring 6 Clicks: Basic Mobility Raw Score: 18 CMS G Code Modifier: CK Therapy Plan PT Treatment/Interventions: ADL retraining, Functional transfer training, LE strengthening/ROM, Endurance training, Patient/family training, Equipment eval/education, Balance, Bed mobility, Gait training, Functional activities, Neuromuscular reeducation PT Frequency: 5-6days/week PT Duration: length of stay Patient Response to Treatment: Progressing toward goals Assessment Patient Assessment Therapy Problem List: Decreased ADL status, Decreased balance, Decreased endurance, Decreased high-level ADLs, Decreased mobility, Decreased safe judgement during ADL, Decreased LE strength Patient Response to Treatment: Progressing toward goals Mood/Affect: Appropriate for circumstances Rehab Prognosis: Good, With continued PT status post acute discharge Visit RN Communication: Yes Medical Record Reviewed: Yes PT Type of Visit: Treatment Precautions Activity: ok to tx per RN Equipment: Gait belt, RW, IV pole, O2 Telemetry/Lawn Mower Operator: Yes Oxygen Used: 2L Other: High fall risk Pain Assessment Pain Assessment: No/denies pain Hearing / Speech / Vision Hearing: Hard of hearing/hearing concerns Speech: Within Functional Limits Current Vision: Wears glasses only for reading Cognition Overall Cognitive Status: Within Functional Limits, Exceptions to Within Functional Limits Attention Span: Attends with cues to redirect Orientation Level: Oriented X4 Following Commands: Follows one step commands with repetition, Follows one step commands with increased time Safety Judgment: Decreased awareness of need for safety Other: pt is participative. Lacks safety awareness, has decreased insight to mobility deficits. Bed Mobility Supine to Sit: Contact guard assist Other: Pt completed bed mobility with CGA for safety and use of bed railing for UE support, HOB elevated. Increased time to complete. Pt required assist for shifting hips forward to EOB. Pt denied dizziness with positional change. Pt sitting in recliner at end of tx session with call light in reach, all needs met, BLEs elevated, RN aware. Transfers Sit to Stand: Min assist Stand to Sit: Min assist Other: Pt completed multiple transfers this session with MIN A for safety and use of RW for BUE support. Pt attempts to pull from RW handles and has difficulty following safety cueing. Pt also maintains grasp onto RW handles while sitting, requiring MIN A to steady RW for safety. No c/o dizziness with positional change. Gait Base of Support: Within Functional Limits Pattern: Decreased ramin, R Decreased foot clearance, L Decreased foot clearance Gait Assistance: Min assist Assistive Device: Rolling walker Gait Distance: 30', 3'x2, 15' Limiting Factors to Gait: Fatigue, Weakness, Decreased safety, Other (comment) (SOB) Stair Management Technique: One rail L up, Step to pattern, Forwards, With gait belt (FRONT END WEB DEVELOPER) Stair Management Assistance: Min assist Number of Stairs: 3 Other: Pt ambulated within room and hallway with MIN A for safety and use of RW for BUE support. Education provided on safe RW sequencing, energy conservation, posture correction, and maintaining close proximity to RW for inc support. Pt attempted stair navigation and required MIN A for safty with FRONT END WEB DEVELOPER. Unsteadiness present, however no overt LOB. 10/12/23 1158 LE Seated LE seated exercises performed? Yes Ankle pumps x Long arc quads x Seated marching x Hip abduction/adduction x Other Glute sets, VVT cues for technique and sequencing Repetitions 15x Balance Balance Evaluation: Exceptions to Functional Limits Sitting Balance: Static: Good Sitting Balance: Dynamic: Fair Standing Balance: Static: Fair Standing Balance: Dynamic: Fair Other: Pt completed standing mobility tasks with BUE support on RW. Unsteadiness present, however no overt LOB. Pt abandoned RW prior to safely reaching destination and required assist for RW navigation to chair d/t inc unsteadiness. Activity Tolerance Endurance: Tolerates 30 minutes activity with rest breaks Other: Pt completed functional mobility tasks with intermittent rest breaks secondary to fatigue, weakness, and decreased endurance. Pt is pleasant and participative. Reported that he is eager to return home. Inc time for education on fall risk and prevention following D/C. Plan Physical Therapy Care Plan Physical Therapy Care Plan (Active) Template: PT - Physical Therapy Problem: Activity Tolerance Dates: Start: 10/10/23 Disciplines: PT Goal: Tolerate > 30 minutes of activity WITH rest breaks Dates: Start: 10/10/23 Expected End: 10/31/23 Description: Goal Description: Patient to perform functional range / strength exercises to improve functional strength and activity tolerancefor improved independence and safety with mobility. Disciplines: PT Outcomes Date/Time User Outcome 10/12/23 1244 Shira Aguiar PTA Progressing Goal Note filed on 10/12/23 1244 by Shira Aguiar PTA Evaluation of progress towards goal: Problem: Bed Mobility Dates: Start: 10/10/23 Disciplines: PT Goal: Patient will perform bed mobility with Modified [place] Dates: Start: 10/10/23 Expected End: 10/31/23 Description: Goal Description: Disciplines: PT Outcomes Date/Time User Outcome 10/12/23 1244 Shira Aguiar PTA Progressing Goal Note filed on 10/12/23 1244 by Shira Aguiar PTA Evaluation of progress towards goal: Problem: Gait Dates: Start: 10/10/23 Disciplines: PT Goal: Patient will perform gait with Stand By Assist Dates: Start: 10/10/23 Expected End: 10/31/23 Description: With__RW__,__>100__feet Goal Description: Disciplines: PT Outcomes Date/Time User Outcome 10/12/23 1244 Shira Aguiar PTA Progressing Goal Note filed on 10/12/23 1244 by Shira Aguiar PTA Evaluation of progress towards goal: Problem: Sitting Balance Dates: Start: 10/10/23 Disciplines: PT Goal: Improve balance to good Dates: Start: 10/10/23 Expected End: 10/31/23 Description: Static Dynamic Disciplines: PT Outcomes Date/Time User Outcome 10/12/23 1244 Shira Aguiar PTA Progressing Goal Note filed on 10/12/23 1244 by Shira Aguiar PTA Evaluation of progress towards goal: Problem: Standing Balance Dates: Start: 10/10/23 Disciplines: PT Goal: Improve balance to good Dates: Start: 10/10/23 Expected End: 10/31/23 Description: With bilat UE support Disciplines: PT Outcomes Date/Time User Outcome 10/12/23 1244 Shira Aguiar PTA Progressing Goal Note filed on 10/12/23 1244 by Shira Aguiar PTA Evaluation of progress towards goal: Problem: Strength Dates: Start: 10/10/23 Disciplines: PT Goal: Improve strength Dates: Start: 10/10/23 Expected End: 10/31/23 Description: Of extremity/ location: bilat LE strength to WFL To facilitate: Disciplines: PT Outcomes Date/Time User Outcome 10/12/23 1244 Shira Aguiar PTA Progressing Goal Note filed on 10/12/23 1244 by Shira Aguiar PTA Evaluation of progress towards goal: Problem: Transfers Dates: Start: 10/10/23 Disciplines: PT Goal: Patient will perform transfers with Stand By Assist Dates: Start: 10/10/23 Expected End: 10/31/23 Description: Goal Description: Patient to perform mobility with good safety awareness. Disciplines: PT Outcomes Date/Time User Outcome 10/12/23 1244 Shira Aguiar PTA Progressing Goal Note filed on 10/12/23 1244 by Shira Aguiar PTA Evaluation of progress towards goal: Physical Therapy Care Plan (Resolved) There are no resolved problems. Principal Problem: Shock ([facility]) Associated attestation - Heidi Walsh, PT - 10/12/2023 1:51 PM EDT I have reviewed and agree with this note and education documentation for this visit. * Plan of Care - Patsy Rivera RN - 10/11/2023 8:41 PM EDT Problem: Pain Goal: Patient goal is pain score less than 4, able to rest, and participant in treatment plan as appropriate Description: INTERVENTIONS: 1. Encourage patient or legal customer account representative to report early pain and ask for pain medicine when needed 2. Assess pain using appropriate pain scale and include the scale used when documenting 3. Administer analgesics based on type and severity of pain and evaluate response within appropriate time frame 4. Implement non-pharmacological measures as appropriate and evaluate response 5. Consider cultural and social influences on pain and pain management 6. Notify LIP if interventions ineffective or patient reports new pain 7. Monitor vital signs including pulse ox, end-tidal CO2 based on pain intervention 8. Reassess pain per policy 9. Teach patient or legal customer account representative interventions for comforting Outcome: Progressing Note: Evaluation of progress towards goal: Pt displays no S&S of being in pain at this time. VSS. PRN pain medication given per patient request and as needed based on pain assessment. Will continue to monitor and assess. Problem: Safety Goal: Patient will be injury free during hospitalization Description: INTERVENTIONS: 1. Assess patient's risk for falls and implement fall prevention plan of care per policy 2. Provide and maintain a safe environment 3. Proper use of double Identifiers 4. Medication administration using the 5 rights 5. Hand hygiene 6. Specimens are labeled at the bedside 7. Instruct patient/ patient customer account representative about use of safety devices 8. Include patient/ patient customer account representative in decisions related to safety Outcome: Progressing Note: Evaluation of progress towards goal: patient remains free of injury during hospitalization Problem: Infection Goal: Absence of infection during hospitalization Description: Interventions: 1. Assess and monitor for signs and symptoms of infection 2. Monitor lab/diagnostic results 3. Monitor all insertion sites i.e., indwelling lines, tubes and drains 4. Monitor endotracheal (as able) and nasal secretions for changes in amount and color 5. Administer medications as ordered 6. Instruct and encourage patient and family to use good hand hygiene technique 7. Identify and instruct patient/patient customer account representative in use of appropriate isolation precautionsfor identified infection/symptoms 8. Provide and discuss with patient/patient customer account representative on educational MDRO sheet 9. Encourage and monitor nutritional status daily and consult court monitor if indicated 10. Implement neutropenic guidelines as needed 11. Review exposure to history of communicable disease and recent travel history on admission 12. Encourage annual influenza vaccine 13. Encourage pneumonia vaccine Outcome: Progressing Note: Evaluation of progress towards goal: Patient labs drawn and monitored, sites assessed and reassessed for signs and symptoms of infection. Problem: Knowledge Deficit Goal: Patient/patient customer account representative demonstrates understanding of disease process, treatment plan,medications, and discharge instructions Description: INTERVENTIONS 1. Complete learning assessment and assess knowledge base 2. Provide teaching at level of understanding 3. Provide teaching via preferred learning method(s) Outcome: Progressing Note: Evaluation of progress towards goal: Patient demonstrates any understanding of information provided. Will continue to reassess and reinforce as needed. Problem: Discharge Planning Goal: Discharge to post-acute care, other facility, or home with appropriate resources Description: Patient's goal is: INTERVENTIONS 1. Conduct assessment to determine patient/family and health care team treatment goals, and need for post-acute services based on payer coverage, community resources, and patient preferences, and barriers to discharge 2. Coordinate with Social work, Care Navigation, and Utilization Review to arrange appropriate level of services according to patient's needs based on patient preference and payer coverage in collaboration with the physician and health care team 3. Address psychosocial, clinical, and financial barriers to discharge as identified in assessment in conjunction with the patient/family and health care team 4. Consult appropriate ancillary services (i.e.. PT/OT/ST, etc) as needed 5. Communicate with and update the patient/family, physician, and health care team regarding progress on the discharge plan 6. Identify discharge learning needs (meds, wound care, etc). 7. Arrange for needed discharge transportation as appropriate Outcome: Progressing Note: Evaluation of progress towards goal: Patient not appropriate for discharge at this time. Problem: Moderate - High Risk Fall Score Description: Bell Fall Score of =/> 25 or indicated by [facility] Assessment Goal: Patient should be free from fall Description: Interventions: 1. [place] to environment 2. Hourly rounds addressing the 4 P's (Pain, Positioning, Possessions, Potty) 3. Clear area of hazards (spills, clutter, electrical cords, unnecessary equipment) 4. Place equipment (bed & TV controls, call light, phone, urinal) within reach 5. Encourage patient to wear glasses and hearing aides as appropriate 6. Maintain bed in lowest position 7. Lock wheels on bed/wheelchair 8. Provide adequate lighting, including night light 9. Assess need for additional bedding, food/fluids, pain med's prior to sleep/routinely 10. Provide gripper slippers or personal non-skid footwear 11. Teach patient and patient customer account representative to maintain environment for safety and engage in all aspects of fall prevention program 12. Remind patient to call for help before getting out of bed 13. Initiate bed/chair/exit alarms supportive devices as appropriate, (chair wedge, no-skid floor mat, raised edge mattress, hip protectors) 14. Locate patient bed assignment for optimal visualization 15. Evaluate and identify Safe Patient Handling Equipment needs 16. Provide supervision when out of bed or chair 17. Utilize gait belt as needed to assist with ambulation 18. Place adaptive equipment (cane, walker) within reach 19. Request patient customer account representative bring adaptive equipment/mobility aids from home or obtain and provide as needed 20. Consult pharmacy regarding effects of med's affecting mobility, cognition, and alternatives 21. Obtain physician order for PT if risk factors associated with mobility are present 22. Obtain physician order for OT as appropriate 23. Utilize diversional activities 24. Educate patient and patient customer account representative how to maintain a safe environment during visitationtimes (notify nurse prior to leaving bedside) 25. Consider appropriateness of medical or non-bilingual medical assistant 26. Set up voiding schedule as appropriate (every 2 hours) Outcome: Progressing Note: Evaluation of progress towards goal: No new falls or injuries noted. Safe environment maintained. Hourly rounding performed. Fall risk identification band in place. Will continue to monitor andassess. Problem: Glucose Imbalance Goal: Clinical indication of glucose balance is achieved Description: Patient's goal is: INTERVENTIONS 1. Monitor blood glucose levels as ordered 2. Administer medications as ordered 3. Notify physician of ineffective treatment plan Outcome: Progressing Note: Evaluation of progress towards goal: Glucose balance is achieved. BS checked PRN and per policy. Insulin given as needed. Problem: Potential for Compromised Skin Integrity Goal: Skin integrity is maintained or improved Description: Patient's goal is: INTERVENTIONS 1. Perform initial skin assessment on admission and as needed 2. Turn patient every 2 hours and PRN 3. Relieve pressure to bony prominences 4. Avoid shearing 5. Keep skin clean and dry 6. Alternate a full bath with partial baths for elderly 7. Apply lotion/moisturizer on skin 8. Monitor patient's hygiene practices 9. Float heels 10. Collaborate with interdisciplinary team and initiate plans and interventions as needed Outcome: Progressing Note: Evaluation of progress towards goal: No new signs of skin breakdown. Turning performed every 2 hours and PRN. Skin care performed. Will continue to monitor and assess. Goal: Patient's nutritional intake is adequate Description: Patient's goal is: INTERVENTIONS 1. Assess and monitor food intake and supplements, patient food preferences, nausea, vomiting, labs, oral cavity (gums, teeth, tongue, mucosa), proper denture fit, and cultural beliefs 2. Monitor for signs of hypoglycemia and hyperglycemia 3. Collaborate with interdisciplinary team and initiate plan and interventions as ordered 4. Monitor patient's weight 5. Assist patient with meals/food selection 6. Assist patient with eating 7. Allow adequate time for meals 8. Provide pleasant environment during mealtime 9. Increase social contact during mealtimes 10. Plan activities to conserve energy 11. Encourage/perform oral hygiene as appropriate 12. Encourage patient to take dietary supplement as ordered 13. Collaborate with clinical court monitor 14. Include patient/ patient's customer account representative in decisions related to nutrition Outcome: Progressing Note: Evaluation of progress towards goal: Patient appropriate for room service and eats independently. Nutritional status assessed and reassessed per policy. Problem: Urinary Incontinence Goal: Perineal skin integrity is maintained or improved Description: INTERVENTIONS 1. Assess genitourinary system, perineal skin, labs (urinalysis), and history of incontinence to include past management, aggravating, and alleviating factors 2. Keep skin clean and dry 3. Apply skin protectant 4. Develop skin care regimen 5. Provide privacy when changing patients incontinence device to maintain their dignity 6. Consider placing an indwelling catheter 7. Collaborate with interdisciplinary team and initiate plans and interventions as needed Outcome: Progressing Note: Evaluation of progress towards goal: Cele care done PRN and per policy. * Plan of Care - Gisele Peoples RN - 10/11/2023 5:06 PM EDT Problem: Pain Goal: Patient goal is pain score less than 4, able to rest, and participant in treatment plan as appropriate Description: INTERVENTIONS: 1. Encourage patient or legal customer account representative to report early pain and ask for pain medicine when needed 2. Assess pain using appropriate pain scale and include the scale used when documenting 3. Administer analgesics based on type and severity of pain and evaluate response within appropriate time frame 4. Implement non-pharmacological measures as appropriate and evaluate response 5. Consider cultural and social influences on pain and pain management 6. Notify LIP if interventions ineffective or patient reports new pain 7. Monitor vital signs including pulse ox, end-tidal CO2 based on pain intervention 8. Reassess pain per policy 9. Teach patient or legal customer account representative interventions for comforting Outcome: Progressing Note: Evaluation of progress towards goal: Problem: Safety Goal: Patient will be injury free during hospitalization Description: INTERVENTIONS: 1. Assess patient's risk for falls and implement fall prevention plan of care per policy 2. Provide and maintain a safe environment 3. Proper use of double Identifiers 4. Medication administration using the 5 rights 5. Hand hygiene 6. Specimens are labeled at the bedside 7. Instruct patient/ patient customer account representative about use of safety devices 8. Include patient/ patient customer account representative in decisions related to safety Outcome: Progressing Note: Evaluation of progress towards goal: Problem: Infection Goal: Absence of infection during hospitalization Description: Interventions: 1. Assess and monitor for signs and symptoms of infection 2. Monitor lab/diagnostic results 3. Monitor all insertion sites i.e., indwelling lines, tubes and drains 4. Monitor endotracheal (as able) and nasal secretions for changes in amount and color 5. Administer medications as ordered 6. Instruct and encourage patient and family to use good hand hygiene technique 7. Identify and instruct patient/patient customer account representative in use of appropriate isolation precautionsfor identified infection/symptoms 8. Provide and discuss with patient/patient customer account representative on educational MDRO sheet 9. Encourage and monitor nutritional status daily and consult court monitor if indicated 10. Implement neutropenic guidelines as needed 11. Review exposure to history of communicable disease and recent travel history on admission 12. Encourage annual influenza vaccine 13. Encourage pneumonia vaccine Outcome: Progressing Note: Evaluation of progress towards goal: Problem: Knowledge Deficit Goal: Patient/patient customer account representative demonstrates understanding of disease process, treatment plan,medications, and discharge instructions Description: INTERVENTIONS 1. Complete learning assessment and assess knowledge base 2. Provide teaching at level of understanding 3. Provide teaching via preferred learning method(s) Outcome: Progressing Note: Evaluation of progress towards goal: Problem: Discharge Planning Goal: Discharge to post-acute care, other facility, or home with appropriate resources Description: Patient's goal is: INTERVENTIONS 1. Conduct assessment to determine patient/family and health care team treatment goals, and need for post-acute services based on payer coverage, community resources, and patient preferences, and barriers to discharge 2. Coordinate with Social work, Care Navigation, and Utilization Review to arrange appropriate level of services according to patient's needs based on patient preference and payer coverage in collaboration with the physician and health care team 3. Address psychosocial, clinical, and financial barriers to discharge as identified in assessment in conjunction with the patient/family and health care team 4. Consult appropriate ancillary services (i.e.. PT/OT/ST, etc) as needed 5. Communicate with and update the patient/family, physician, and health care team regarding progress on the discharge plan 6. Identify discharge learning needs (meds, wound care, etc). 7. Arrange for needed discharge transportation as appropriate Outcome: Progressing Note: Evaluation of progress towards goal: Problem: Moderate - High Risk Fall Score Description: Bell Fall Score of =/> 25 or indicated by [facility] Assessment Goal: Patient should be free from fall Description: Interventions: 1. [place] to environment 2. Hourly rounds addressing the 4 P's (Pain, Positioning, Possessions, Potty) 3. Clear area of hazards (spills, clutter, electrical cords, unnecessary equipment) 4. Place equipment (bed & TV controls, call light, phone, urinal) within reach 5. Encourage patient to wear glasses and hearing aides as appropriate 6. Maintain bed in lowest position 7. Lock wheels on bed/wheelchair 8. Provide adequate lighting, including night light 9. Assess need for additional bedding, food/fluids, pain med's prior to sleep/routinely 10. Provide gripper slippers or personal non-skid footwear 11. Teach patient and patient customer account representative to maintain environment for safety and engage in all aspects of fall prevention program 12. Remind patient to call for help before getting out of bed 13. Initiate bed/chair/exit alarms supportive devices as appropriate, (chair wedge, no-skid floor mat, raised edge mattress, hip protectors) 14. Locate patient bed assignment for optimal visualization 15. Evaluate and identify Safe Patient Handling Equipment needs 16. Provide supervision when out of bed or chair 17. Utilize gait belt as needed to assist with ambulation 18. Place adaptive equipment (cane, walker) within reach 19. Request patient customer account representative bring adaptive equipment/mobility aids from home or obtain and provide as needed 20. Consult pharmacy regarding effects of med's affecting mobility, cognition, and alternatives 21. Obtain physician order for PT if risk factors associated with mobility are present 22. Obtain physician order for OT as appropriate 23. Utilize diversional activities 24. Educate patient and patient customer account representative how to maintain a safe environment during visitationtimes (notify nurse prior to leaving bedside) 25. Consider appropriateness of medical or non-bilingual medical assistant 26. Set up voiding schedule as appropriate (every 2 hours) Outcome: Progressing Note: Evaluation of progress towards goal: Problem: Glucose Imbalance Goal: Clinical indication of glucose balance is achieved Description: Patient's goal is: INTERVENTIONS 1. Monitor blood glucose levels as ordered 2. Administer medications as ordered 3. Notify physician of ineffective treatment plan Outcome: Progressing Note: Evaluation of progress towards goal: Goal: Patient's discharge needs are met Description: Patient's goal is: INTERVENTIONS 1. Assess patient for self-management skills 2. Encourage participation in diabetes management 3. Identify potential discharge barriers on admission and throughout hospital stay 4. Involve patient/S.O. in discharge planning process 5. Communicate referral to music educator as appropriate 6. Communicate referral to court monitor as appropriate 7. Collaborate with case management/secondary social studies teacher for discharge needs Outcome: Progressing Note: Evaluation of progress towards goal: Problem: Multi-Drug Resistant Organism / Rule-Out Infection Prevention Goal: Prevent transmission of infection Description: INTERVENTIONS 1. Place patient in private room or in room with patient with same disease 2. Discard single-use items 3. Clean reusable equipment between patients 4. Wear gloves for direct and indirect contact with patient or contaminants 5. Change gloves between tasks and procedures 6. Wash hands before and after caring for each patient 7. Wear appropriate personal protective equipment in relation to the indicated isolation type 8. Place appropriate isolation signage on patient's door 9. Provide patient/ patient customer account representative with isolation education. Outcome: Progressing Note: Evaluation of progress towards goal: Problem: Potential for Compromised Skin Integrity Goal: Skin integrity is maintained or improved Description: Patient's goal is: INTERVENTIONS 1. Perform initial skin assessment on admission and as needed 2. Turn patient every 2 hours and PRN 3. Relieve pressure to bony prominences 4. Avoid shearing 5. Keep skin clean and dry 6. Alternate a full bath with partial baths for elderly 7. Apply lotion/moisturizer on skin 8. Monitor patient's hygiene practices 9. Float heels 10. Collaborate with interdisciplinary team and initiate plans and interventions as needed Outcome: Progressing Note: Evaluation of progress towards goal: Goal: Patient's nutritional intake is adequate Description: Patient's goal is: INTERVENTIONS 1. Assess and monitor food intake and supplements, patient food preferences, nausea, vomiting, labs, oral cavity (gums, teeth, tongue, mucosa), proper denture fit, and cultural beliefs 2. Monitor for signs of hypoglycemia and hyperglycemia 3. Collaborate with interdisciplinary team and initiate plan and interventions as ordered 4. Monitor patient's weight 5. Assist patient with meals/food selection 6. Assist patient with eating 7. Allow adequate time for meals 8. Provide pleasant environment during mealtime 9. Increase social contact during mealtimes 10. Plan activities to conserve energy 11. Encourage/perform oral hygiene as appropriate 12. Encourage patient to take dietary supplement as ordered 13. Collaborate with clinical court monitor 14. Include patient/ patient's customer account representative in decisions related to nutrition Outcome: Progressing Note: Evaluation of progress towards goal: Problem: Urinary Incontinence Goal: Perineal skin integrity is maintained or improved Description: INTERVENTIONS 1. Assess genitourinary system, perineal skin, labs (urinalysis), and history of incontinence to include past management, aggravating, and alleviating factors 2. Keep skin clean and dry 3. Apply skin protectant 4. Develop skin care regimen 5. Provide privacy when changing patients incontinence device to maintain their dignity 6. Consider placing an indwelling catheter 7. Collaborate with interdisciplinary team and initiate plans and interventions as needed Outcome: Progressing Note: Evaluation of progress towards goal: * Plan of Care - Amandeep Henning MD - 10/11/2023 3:06 AM EDT Patients Hemoglobin came back at 6.6. It was noted that his Hb was 6.8 earlier but he had declined the transfusion, stating that his blood gets like that. I talked to the patient this time regarding transfusion, and he once again declined, stating he has no symptoms and is only requesting something to help him sleep. He denies any light-headedness, chest pain, palpitations, or SOB. The risks ofdeclining blood transfusion was explained including decreased perfusion and oxygenation to vital organs and potential for organ damage. He understood all risks and declined transfusion. *After thinking about it for some time, patient is now agreeable to receiving blood. But he stated only 1 unit. Mina Henning MD PGY3 Internal Medicine [facility] * Plan of Care - Patsy Rivera RN - 10/10/2023 8:52 PM EDT Problem: Pain Goal: Patient goal is pain score less than 4, able to rest, and participant in treatment plan as appropriate Description: INTERVENTIONS: 1. Encourage patient or legal customer account representative to report early pain and ask for pain medicine when needed 2. Assess pain using appropriate pain scale and include the scale used when documenting 3. Administer analgesics based on type and severity of pain and evaluate response within appropriate time frame 4. Implement non-pharmacological measures as appropriate and evaluate response 5. Consider cultural and social influences on pain and pain management 6. Notify LIP if interventions ineffective or patient reports new pain 7. Monitor vital signs including pulse ox, end-tidal CO2 based on pain intervention 8. Reassess pain per policy 9. Teach patient or legal customer account representative interventions for comforting Outcome: Progressing Note: Evaluation of progress towards goal: Pt displays no S&S of being in pain at this time. VSS. PRN pain medication given per patient request and as needed based on pain assessment. Will continue to monitor and assess. Problem: Safety Goal: Patient will be injury free during hospitalization Description: INTERVENTIONS: 1. Assess patient's risk for falls and implement fall prevention plan of care per policy 2. Provide and maintain a safe environment 3. Proper use of double Identifiers 4. Medication administration using the 5 rights 5. Hand hygiene 6. Specimens are labeled at the bedside 7. Instruct patient/ patient customer account representative about use of safety devices 8. Include patient/ patient customer account representative in decisions related to safety Outcome: Progressing Note: Evaluation of progress towards goal: patient remains free of injury during hospitalization Problem: Infection Goal: Absence of infection during hospitalization Description: Interventions: 1. Assess and monitor for signs and symptoms of infection 2. Monitor lab/diagnostic results 3. Monitor all insertion sites i.e., indwelling lines, tubes and drains 4. Monitor endotracheal (as able) and nasal secretions for changes in amount and color 5. Administer medications as ordered 6. Instruct and encourage patient and family to use good hand hygiene technique 7. Identify and instruct patient/patient customer account representative in use of appropriate isolation precautionsfor identified infection/symptoms 8. Provide and discuss with patient/patient customer account representative on educational MDRO sheet 9. Encourage and monitor nutritional status daily and consult court monitor if indicated 10. Implement neutropenic guidelines as needed 11. Review exposure to history of communicable disease and recent travel history on admission 12. Encourage annual influenza vaccine 13. Encourage pneumonia vaccine Outcome: Progressing Note: Evaluation of progress towards goal: Patient labs drawn and monitored, sites assessed and reassessed for signs and symptoms of infection. Problem: Knowledge Deficit Goal: Patient/patient customer account representative demonstrates understanding of disease process, treatment plan,medications, and discharge instructions Description: INTERVENTIONS 1. Complete learning assessment and assess knowledge base 2. Provide teaching at level of understanding 3. Provide teaching via preferred learning method(s) Outcome: Progressing Note: Evaluation of progress towards goal: Patient demonstrates understanding of information provided. Will continue to reassess and reinforce as needed. Problem: Discharge Planning Goal: Discharge to post-acute care, other facility, or home with appropriate resources Description: Patient's goal is: INTERVENTIONS 1. Conduct assessment to determine patient/family and health care team treatment goals, and need for post-acute services based on payer coverage, community resources, and patient preferences, and barriers to discharge 2. Coordinate with Social work, Care Navigation, and Utilization Review to arrange appropriate level of services according to patient's needs based on patient preference and payer coverage in collaboration with the physician and health care team 3. Address psychosocial, clinical, and financial barriers to discharge as identified in assessment in conjunction with the patient/family and health care team 4. Consult appropriate ancillary services (i.e.. PT/OT/ST, etc) as needed 5. Communicate with and update the patient/family, physician, and health care team regarding progress on the discharge plan 6. Identify discharge learning needs (meds, wound care, etc). 7. Arrange for needed discharge transportation as appropriate Outcome: Progressing Note: Evaluation of progress towards goal: Patient not appropriate for discharge at this time. Problem: Moderate - High Risk Fall Score Description: Bell Fall Score of =/> 25 or indicated by [facility] Assessment Goal: Patient should be free from fall Description: Interventions: 1. [place] to environment 2. Hourly rounds addressing the 4 P's (Pain, Positioning, Possessions, Potty) 3. Clear area of hazards (spills, clutter, electrical cords, unnecessary equipment) 4. Place equipment (bed & TV controls, call light, phone, urinal) within reach 5. Encourage patient to wear glasses and hearing aides as appropriate 6. Maintain bed in lowest position 7. Lock wheels on bed/wheelchair 8. Provide adequate lighting, including night light 9. Assess need for additional bedding, food/fluids, pain med's prior to sleep/routinely 10. Provide gripper slippers or personal non-skid footwear 11. Teach patient and patient customer account representative to maintain environment for safety and engage in all aspects of fall prevention program 12. Remind patient to call for help before getting out of bed 13. Initiate bed/chair/exit alarms supportive devices as appropriate, (chair wedge, no-skid floor mat, raised edge mattress, hip protectors) 14. Locate patient bed assignment for optimal visualization 15. Evaluate and identify Safe Patient Handling Equipment needs 16. Provide supervision when out of bed or chair 17. Utilize gait belt as needed to assist with ambulation 18. Place adaptive equipment (cane, walker) within reach 19. Request patient customer account representative bring adaptive equipment/mobility aids from home or obtain and provide as needed 20. Consult pharmacy regarding effects of med's affecting mobility, cognition, and alternatives 21. Obtain physician order for PT if risk factors associated with mobility are present 22. Obtain physician order for OT as appropriate 23. Utilize diversional activities 24. Educate patient and patient customer account representative how to maintain a safe environment during visitationtimes (notify nurse prior to leaving bedside) 25. Consider appropriateness of medical or non-bilingual medical assistant 26. Set up voiding schedule as appropriate (every 2 hours) Outcome: Progressing Note: Evaluation of progress towards goal: No new falls or injuries noted. Safe environment maintained. Hourly rounding performed. Fall risk identification band in place. Will continue to monitor andassess. Problem: Glucose Imbalance Goal: Clinical indication of glucose balance is achieved Description: Patient's goal is: INTERVENTIONS 1. Monitor blood glucose levels as ordered 2. Administer medications as ordered 3. Notify physician of ineffective treatment plan Outcome: Progressing Note: Evaluation of progress towards goal: Glucose balance is achieved. BS checked PRN and per policy. Insulin given as needed. Problem: Potential for Compromised Skin Integrity Goal: Skin integrity is maintained or improved Description: Patient's goal is: INTERVENTIONS 1. Perform initial skin assessment on admission and as needed 2. Turn patient every 2 hours and PRN 3. Relieve pressure to bony prominences 4. Avoid shearing 5. Keep skin clean and dry 6. Alternate a full bath with partial baths for elderly 7. Apply lotion/moisturizer on skin 8. Monitor patient's hygiene practices 9. Float heels 10. Collaborate with interdisciplinary team and initiate plans and interventions as needed Outcome: Progressing Note: Evaluation of progress towards goal: No new signs of skin breakdown. Turning performed by patient PRN. Skin care performed. Will continue to monitor and assess. Goal: Patient's nutritional intake is adequate Description: Patient's goal is: INTERVENTIONS 1. Assess and monitor food intake and supplements, patient food preferences, nausea, vomiting, labs, oral cavity (gums, teeth, tongue, mucosa), proper denture fit, and cultural beliefs 2. Monitor for signs of hypoglycemia and hyperglycemia 3. Collaborate with interdisciplinary team and initiate plan and interventions as ordered 4. Monitor patient's weight 5. Assist patient with meals/food selection 6. Assist patient with eating 7. Allow adequate time for meals 8. Provide pleasant environment during mealtime 9. Increase social contact during mealtimes 10. Plan activities to conserve energy 11. Encourage/perform oral hygiene as appropriate 12. Encourage patient to take dietary supplement as ordered 13. Collaborate with clinical court monitor 14. Include patient/ patient's customer account representative in decisions related to nutrition Outcome: Progressing Note: Evaluation of progress towards goal: Patient appropriate for room service and eats independently. Nutritional status assessed and reassessed per policy. Problem: Urinary Incontinence Goal: Perineal skin integrity is maintained or improved Description: INTERVENTIONS 1. Assess genitourinary system, perineal skin, labs (urinalysis), and history of incontinence to include past management, aggravating, and alleviating factors 2. Keep skin clean and dry 3. Apply skin protectant 4. Develop skin care regimen 5. Provide privacy when changing patients incontinence device to maintain their dignity 6. Consider placing an indwelling catheter 7. Collaborate with interdisciplinary team and initiate plans and interventions as needed Outcome: Progressing Note: Evaluation of progress towards goal: Cele care done PRN and per policy. * Plan of Care - Grace Palomo MD - 10/10/2023 6:34 PM EDT Point of care cardiac ultrasound: On levophed MAP 70 CVP 10 VTI: 26 cm. LVOT: 1.6 cm. Calculated Cardiac output: 3.9 SVR:15 Venous excess ultrasound (VeXus) IVC: Collapsible with inspiration Portal vein & renal vein: Non pulsatile Hepatic vein: Normal A, S, D waves (S > D) Conclusion: Findings suggest non congested veins (IVC, Hepatic, portal and renal veins). Will be discussed with nephrology and cookie mixer helper for further recommendations * Discharge Planning Note - NICHOLAS Portillo - 10/10/2023 3:29 PM EDT DISCHARGE PLANNING NOTE Patient discussed today in daily transition rounds. Current Discharge Plan: TBD- was ome with [facility]. Therapy is recommending SNF. Current barriers: wean levo, V[place], US abdomen, SNF choice, acceptance and auth. - NICHOLAS PORTILLO 10/10/23 3:30 PM * PT/OT/RESEARCH TEST ENGINE OPERATOR - Rhys Pierce PT - 10/10/2023 1:06 PM EDT Physical Therapy Evaluation Discharge Recommendations PT Recommendations[facility] Comments: Pt presents with decline in functional indepence, activity tolerance and decreased functional independence. Pt would benefit from further skilled therapy services in SNF setting to address deficits, pt unable to care for self in home setting at this time. 6 Clicks: Basic Mobility Turning from your back to your side while in a flat bed without using bed rails?: A lot Moving from lying on your back to sitting on side of flat bed without using bed rails?: A lot Moving to and from bed to a chair (including w/c)?: A little Standing up from a chair using your arms (e.g. w/c or bedside chair)?: A little To walk in hospital room?: A little Climbing 3-5 steps with a railing?: A lot Scoring 6 Clicks: Basic Mobility Raw Score: 15 CMS G Code Modifier: CK Therapy Plan Need for skilled Physical Therapy to address deficits in functional mobility due to a status decline resulting from admission to [facility] 10/03 with c/o increasing SOB. CT chest showed moderate large pleural effusions / pneumonia CTA (+) / elevated creatinine 10/05 HD initiated 10/06 IR for thoracocentesis - 0.5L removed 10/09 Hgb 7.2 PT Treatment/Interventions: ADL retraining, Functional transfer training, LE strengthening/ROM, Endurance training, Patient/family training, Equipment eval/education, Balance, Bed mobility, Gait training, Functional activities, Neuromuscular reeducation PT Frequency: 5-6days/week PT Duration: length of stay Patient Response to Treatment: Tolerated evaluation without adverse reaction Past Medical History: Diagnosis Date Acute coronary [place] Anxiety disorder Chronic obstructive asthma with exacerbation [place]) COPD (chronic obstructive pulmonary disease) [place] Diabetes mellitus type 2, controlled ([facility] Essential hypertension Folate deficiency anemia Heart failure [place]) Megaloblastic anemia VT (myocardial infarction) [place] 06/2023 Muscle weakness (generalized) Myocardial infarct [place] Obesity Obstructive sleep apnea SARAH (obstructive sleep apnea) Pancytopenia [place] Presence of coronary artery bypass graft stent Shock [place] 10/05/2023 Supplemental oxygen dependent Past Surgical History: Procedure Laterality Date CARDIAC SURGERY X2 Assessment Patient Assessment Therapy Problem List: Decreased ADL status, Decreased balance, Decreased endurance, Decreased high-level ADLs, Decreased mobility, Decreased safe judgement during ADL, Decreased LE strength Patient Response to Treatment: Tolerated evaluation without adverse reaction Mood/Affect: Appropriate for circumstances Rehab Prognosis: Good, With continued PT status post acute discharge Visit RN Communication: Yes Medical Record Reviewed: Yes PT Type of Visit: Evaluation Precautions Activity: Activity as tolerated per early mobility guidelines Equipment: Gait belt, RW, IV pole, O2 Telemetry/Lawn Mower Operator: Yes Oxygen Used: 2L O2 via NC Other: High fall risk Pain Assessment Pain Assessment: No/denies pain Home Living Type of Home: Trailer Home Layout: One level Stairs to Enter: 4 Hand Rails: Bilateral Bathroom Shower/Tub: Tub/shower unit Bathroom Toilet: Standard Bathroom Equipment: Grab bars in shower, Shower chair, Hand-held shower, Grab bars around toilet Home Equipment: Rolling walker, Cane, 4 Wheeled walker, Damper Worker, Sock aid, Long- handled shoehorn, Home oxygen (2L O2) Other : Pt reports use of 4WW with mobility, denies recent falls Prior Function Lives With: Alone Level of Mobility: Independent with ADLs and functional transfers or gait Homemaking Assistance: Independent 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 Significant assist to elevate trunk Transfers Sit to Stand: Min assist Stand to Sit: Min assist Other: one step cues for hand placement / safety. Gait Pattern: Decreased ramin, R Decreased foot clearance, L Decreased foot clearance Gait Assistance: Min assist Assistive Device: Rolling walker Gait Distance: 15ft to chair Limiting Factors to Gait: Fatigue, Weakness Other: cues to keep walker close to body, pt unsteady without LOB Balance Sitting Balance: Static: Good Sitting Balance: Dynamic: Fair Standing Balance: Static: Fair Standing Balance: Dynamic: Fair ((-)) Other: standing balance with bilat UE support RLE Assessment: (generalized weakness and deconditioning) LLE Assessment: (generalized weakness and deconditioning) Activity Tolerance Endurance: Tolerates <30 minutes activity WITHOUT vital sign changes Plan Physical Therapy Care Plan Physical Therapy Care Plan (Active) Template: PT - Physical Therapy Problem: Activity Tolerance Dates: Start: 10/10/23 Disciplines: PT Goal: Tolerate > 30 minutes of activity WITH rest breaks Dates: Start: 10/10/23 Expected End: 10/31/23 Description: Goal Description: Patient to perform functional range / strength exercises to improve functional strength and activity tolerancefor improved independence and safety with mobility. Disciplines: PT Problem: Bed Mobility Dates: Start: 10/10/23 Disciplines: PT Goal: Patient will perform bed mobility with Modified [place] Dates: Start: 10/10/23 Expected End: 10/31/23 Description: Goal Description: Disciplines: PT Problem: Gait Dates: Start: 10/10/23 Disciplines: PT Goal: Patient will perform gait with Stand By Assist Dates: Start: 10/10/23 Expected End: 10/31/23 Description: With__RW__,__>100__feet Goal Description: Disciplines: PT Problem: Sitting Balance Dates: Start: 10/10/23 Disciplines: PT Goal: Improve balance to good Dates: Start: 10/10/23 Expected End: 10/31/23 Description: Static Dynamic Disciplines: PT Problem: Standing Balance Dates: Start: 10/10/23 Disciplines: PT Goal: Improve balance to good Dates: Start: 10/10/23 Expected End: 10/31/23 Description: With bilat UE support Disciplines: PT Problem: Strength Dates: Start: 10/10/23 Disciplines: PT Goal: Improve strength Dates: Start: 10/10/23 Expected End: 10/31/23 Description: Of extremity/ location: bilat LE strength to WFL To facilitate: Disciplines: PT Problem: Transfers Dates: Start: 10/10/23 Disciplines: PT Goal: Patient will perform transfers with Stand By Assist Dates: Start: 10/10/23 Expected End: 10/31/23 Description: Goal Description: Patient to perform mobility with good safety awareness. Disciplines: PT Physical Therapy Care Plan (Resolved) There are no resolved problems. Principal Problem: Shock (CMS-HCC) * PT/OT/RESEARCH TEST ENGINE OPERATOR - Kim Gonsalez OTR/L - 10/10/2023 12:42 PM EDT Occupational Therapy Evaluation Discharge Recommendations OT Recommendations : [facility] Comments: Recommend SNF for continued therapy to maximize function and improve safety. Pt demonstrates inability to care for self and has limited social support. 6 Clicks: Daily Activity Putting on and taking off regular lower body clothing?: A lot Bathing (including washing, rinsing, drying)?: A lot Toileting, which includes using toilet, bedpan or urinal?: A lot Putting on and taking off regular upper body clothing?: A little Taking care of personal grooming such as brushing teeth?: A little Eating meals?: None Scoring Daily Activity Raw Score: 16 CMS G Code Modifier: CK Therapy Plan Need for skilled Occupational Therapy to address deficits in ADL independence and functional mobility due to a status decline resulting from shock. Pt is a 73 yo male admitted to [facility] 10/04/[address] chest: moderately large pleural effusion and pneumonia UA(+), Creatinine elevated. Pt started on HD 10/05 and has received 2 units total. 10/06: pt underwent thoracentesis with 0.5 L removed. Past Medical History: Diagnosis Date Acute coronary syndrome [place] Anxiety disorder Chronic obstructive asthma with exacerbation [place] COPD (chronic obstructive pulmonary disease) [place] Diabetes mellitus type 2, controlled [place] Essential hypertension Folate deficiency anemia Heart failure [place]) Megaloblastic anemia VT (myocardial infarction) [place] 06/2023 Muscle weakness (generalized) Myocardial infarct [place] Obesity Obstructive sleep apnea SARAH (obstructive sleep apnea) Pancytopenia [place] Presence of coronary artery bypass graft stent Shock [place] 10/05/2023 Supplemental oxygen dependent Past Surgical History: Procedure Laterality Date CARDIAC SURGERY X2 OT Treatment/Interventions: ADL retraining, Functional transfer training, UE strengthening/ROM, Endurance training, Patient/family training, Equipment eval/education, Balance, Home management, Bed mobility, Compensatory technique education, Functional activities OT Frequency: 5-6days/week OT Duration: LOS Assessment Patient Assessment Therapy Problem List: Decreased ADL status, Decreased balance, Decreased endurance, Decreased high-level ADLs, Decreased mobility, Decreased self-care trans, Decreased UE strength Patient Response to Treatment: Tolerated evaluation without adverse reaction Mood/Affect: Appropriate for circumstances Rehab Prognosis: Good, With continued OT status post acute discharge Visit RN Communication: Yes Medical Record Reviewed: Yes OT Type of Visit: Evaluation Precautions Activity: Activity as tolerated per early mobility guidelines Equipment: Gait belt, RW, IV pole, O2 Telemetry/Lawn Mower Operator: Yes Oxygen Used: 2L O2 NC Other: High fall risk, monitor Hgb Pain Assessment Pain Assessment: No/denies pain Home Living Type of Home: Trailer Home Layout: One level Stairs to Enter: 4 Hand Rails: Bilateral Stairs in Home: 0 Bathroom Shower/Tub: Tub/shower unit Bathroom Toilet: Standard Bathroom Equipment: Grab bars in shower, Shower chair, Hand-held shower, Grab bars around toilet Home Equipment: Rolling walker, Cane, 4 Wheeled walker, Damper Worker, Sock aid, Long- handled shoehorn (2L O2 continuous) Other : Pt reports 4WW use for all mobility at baseline. Denies recent falls. 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 Pt fatigues quickly Home Management - IADL Other: Pt limited by weakness, fatigue, balance deficit, decreased activity tolerance, and limited standing tolerance. Pt fatigues quickly Hearing / Speech / Vision Hearing: Hard of hearing/hearing concerns Speech: Within Functional Limits Current Vision: Wears glasses only for reading Cognition Overall Cognitive Status: Within Functional Limits Orientation Level: Oriented X4 Sensation Overall Sensation Status: Within Functional Limits Bed Mobility Supine to Sit: Mod assist Other: Assistance for trunk and BLE's. No dizziness. SOB while sitting EOB. Pt in chair following evaluation. Call light in reach and encouraged to call for assist. Transfers Sit to Stand: Min assist Stand to Sit: Min assist Other: VC's for safe hand placement using RW. No dizziness. Gait Gait Assistance: Min assist Assistive Device: Rolling walker Gait Distance: 15 ft Limiting Factors to Gait: Fatigue, Weakness Other: VC's for safe navigation using RW. No major LOB. Assistance for RW negotiation. Balance Balance Evaluation: Exceptions to Functional Limits Sitting Balance: Static: Good Sitting Balance: Dynamic: Fair Standing Balance: Static: Fair Standing Balance: Dynamic: Fair RUE Assessment: (4/5 grossly) LUE Assessment: (4/5 grossly) Activity Tolerance Endurance: Tolerates <30 minutes activity WITHOUT vital sign changes Other: Vitals stable. Plan Occupational Therapy Care Plan Occupational Therapy Care Plan (Active) Template: OT - Occupational Therapy Problem: Activity Tolerance Dates: Start: 10/10/23 Disciplines: OT Goal: Tolerate > 30 minutes of activity WITH rest breaks Dates: Start: 10/10/23 Expected End: 11/10/23 Description: Goal Description: Disciplines: OT Problem: Bed Mobility Dates: Start: 10/10/23 Disciplines: OT Goal: Patient will perform bed mobility with Modified Giles Dates: Start: 10/10/23 Expected End: 11/10/23 Description: Goal Description: Disciplines: OT Problem: Functional Mobility Dates: Start: 10/10/23 Disciplines: OT Goal: Patient will perform functional mobility with Modified [place] Dates: Start: 10/10/23 Expected End: 11/10/23 Description: Functional household distances using RW Disciplines: OT Problem: Other (Customize) Dates: Start: 10/10/23 Disciplines: OT Goal: Improve Dates: Start: 10/10/23 Expected End: 11/10/23 Description: Perform ADL's with mod I Disciplines: OT Problem: Standing Balance Dates: Start: 10/10/23 Disciplines: OT Goal: Improve balance to good Dates: Start: 10/10/23 Expected End: 11/10/23 Description: 10 mins standing activity to increase tolerance for grooming at the sink Disciplines: OT Problem: Strength Dates: Start: 10/10/23 Disciplines: OT Goal: Improve strength Dates: Start: 10/10/23 Expected End: 11/10/23 Description: Tolerate BUE HEP to increase strength to 5/5 Disciplines: OT Problem: Toilet Transfers Dates: Start: 10/10/23 Disciplines: OT Goal: Patient will perform toilet transfers with Modified [place] Dates: Start: 10/10/23 Expected End: 11/10/23 Description: Goal Description: Disciplines: OT Problem: Transfers Dates: Start: 10/10/23 Disciplines: OT Goal: Patient will perform transfers with Modified [place] Dates: Start: 10/10/23 Expected End: 11/10/23 Description: Goal Description: Disciplines: OT Occupational Therapy Care Plan (Resolved) There are no resolved problems. Principal Problem: Shock (CMS-HCC) * Plan of Care - Gisele Peoples RN - 10/10/2023 8:46 AM EDT Problem: Pain Goal: Patient goal is pain score less than 4, able to rest, and participant in treatment plan as appropriate Description: INTERVENTIONS: 1. Encourage patient or legal customer account representative to report early pain and ask for pain medicine when needed 2. Assess pain using appropriate pain scale and include the scale used when documenting 3. Administer analgesics based on type and severity of pain and evaluate response within appropriate time frame 4. Implement non-pharmacological measures as appropriate and evaluate response 5. Consider cultural and social influences on pain and pain management 6. Notify LIP if interventions ineffective or patient reports new pain 7. Monitor vital signs including pulse ox, end-tidal CO2 based on pain intervention 8. Reassess pain per policy 9. Teach patient or legal customer account representative interventions for comforting Outcome: Progressing Note: Evaluation of progress towards goal: Problem: Safety Goal: Patient will be injury free during hospitalization Description: INTERVENTIONS: 1. Assess patient's risk for falls and implement fall prevention plan of care per policy 2. Provide and maintain a safe environment 3. Proper use of double Identifiers 4. Medication administration using the 5 rights 5. Hand hygiene 6. Specimens are labeled at the bedside 7. Instruct patient/ patient customer account representative about use of safety devices 8. Include patient/ patient customer account representative in decisions related to safety Outcome: Progressing Note: Evaluation of progress towards goal: Problem: Infection Goal: Absence of infection during hospitalization Description: Interventions: 1. Assess and monitor for signs and symptoms of infection 2. Monitor lab/diagnostic results 3. Monitor all insertion sites i.e., indwelling lines, tubes and drains 4. Monitor endotracheal (as able) and nasal secretions for changes in amount and color 5. Administer medications as ordered 6. Instruct and encourage patient and family to use good hand hygiene technique 7. Identify and instruct patient/patient customer account representative in use of appropriate isolation precautionsfor identified infection/symptoms 8. Provide and discuss with patient/patient customer account representative on educational MDRO sheet 9. Encourage and monitor nutritional status daily and consult court monitor if indicated 10. Implement neutropenic guidelines as needed 11. Review exposure to history of communicable disease and recent travel history on admission 12. Encourage annual influenza vaccine 13. Encourage pneumonia vaccine Outcome: Progressing Note: Evaluation of progress towards goal: Problem: Knowledge Deficit Goal: Patient/patient customer account representative demonstrates understanding of disease process, treatment plan,medications, and discharge instructions Description: INTERVENTIONS 1. Complete learning assessment and assess knowledge base 2. Provide teaching at level of understanding 3. Provide teaching via preferred learning method(s) Outcome: Progressing Note: Evaluation of progress towards goal: Problem: Discharge Planning Goal: Discharge to post-acute care, other facility, or home with appropriate resources Description: Patient's goal is: INTERVENTIONS 1. Conduct assessment to determine patient/family and health care team treatment goals, and need for post-acute services based on payer coverage, community resources, and patient preferences, and barriers to discharge 2. Coordinate with Social work, Care Navigation, and Utilization Review to arrange appropriate level of services according to patient's needs based on patient preference and payer coverage in collaboration with the physician and health care team 3. Address psychosocial, clinical, and financial barriers to discharge as identified in assessment in conjunction with the patient/family and health care team 4. Consult appropriate ancillary services (i.e.. PT/OT/ST, etc) as needed 5. Communicate with and update the patient/family, physician, and health care team regarding progress on the discharge plan 6. Identify discharge learning needs (meds, wound care, etc). 7. Arrange for needed discharge transportation as appropriate Outcome: Progressing Note: Evaluation of progress towards goal: Problem: Moderate - High Risk Fall Score Description: Bell Fall Score of =/> 25 or indicated by [facility] Assessment Goal: Patient should be free from fall Description: Interventions: 1. [place] to environment 2. Hourly rounds addressing the 4 P's (Pain, Positioning, Possessions, Potty) 3. Clear area of hazards (spills, clutter, electrical cords, unnecessary equipment) 4. Place equipment (bed & TV controls, call light, phone, urinal) within reach 5. Encourage patient to wear glasses and hearing aides as appropriate 6. Maintain bed in lowest position 7. Lock wheels on bed/wheelchair 8. Provide adequate lighting, including night light 9. Assess need for additional bedding, food/fluids, pain med's prior to sleep/routinely 10. Provide gripper slippers or personal non-skid footwear 11. Teach patient and patient customer account representative to maintain environment for safety and engage in all aspects of fall prevention program 12. Remind patient to call for help before getting out of bed 13. Initiate bed/chair/exit alarms supportive devices as appropriate, (chair wedge, no-skid floor mat, raised edge mattress, hip protectors) 14. Locate patient bed assignment for optimal visualization 15. Evaluate and identify Safe Patient Handling Equipment needs 16. Provide supervision when out of bed or chair 17. Utilize gait belt as needed to assist with ambulation 18. Place adaptive equipment (cane, walker) within reach 19. Request patient customer account representative bring adaptive equipment/mobility aids from home or obtain and provide as needed 20. Consult pharmacy regarding effects of med's affecting mobility, cognition, and alternatives 21. Obtain physician order for PT if risk factors associated with mobility are present 22. Obtain physician order for OT as appropriate 23. Utilize diversional activities 24. Educate patient and patient customer account representative how to maintain a safe environment during visitationtimes (notify nurse prior to leaving bedside) 25. Consider appropriateness of medical or non-bilingual medical assistant 26. Set up voiding schedule as appropriate (every 2 hours) Outcome: Progressing Note: Evaluation of progress towards goal: Problem: Glucose Imbalance Goal: Clinical indication of glucose balance is achieved Description: Patient's goal is: INTERVENTIONS 1. Monitor blood glucose levels as ordered 2. Administer medications as ordered 3. Notify physician of ineffective treatment plan Outcome: Progressing Note: Evaluation of progress towards goal: Goal: Patient's discharge needs are met Description: Patient's goal is: INTERVENTIONS 1. Assess patient for self-management skills 2. Encourage participation in diabetes management 3. Identify potential discharge barriers on admission and throughout hospital stay 4. Involve patient/S.O. in discharge planning process 5. Communicate referral to music educator as appropriate 6. Communicate referral to court monitor as appropriate 7. Collaborate with case management/secondary social studies teacher for discharge needs Outcome: Progressing Note: Evaluation of progress towards goal: Problem: Multi-Drug Resistant Organism / Rule-Out Infection Prevention Goal: Prevent transmission of infection Description: INTERVENTIONS 1. Place patient in private room or in room with patient with same disease 2. Discard single-use items 3. Clean reusable equipment between patients 4. Wear gloves for direct and indirect contact with patient or contaminants 5. Change gloves between tasks and procedures 6. Wash hands before and after caring for each patient 7. Wear appropriate personal protective equipment in relation to the indicated isolation type 8. Place appropriate isolation signage on patient's door 9. Provide patient/ patient customer account representative with isolation education. Outcome: Progressing Note: Evaluation of progress towards goal: Problem: Potential for Compromised Skin Integrity Goal: Skin integrity is maintained or improved Description: Patient's goal is: INTERVENTIONS 1. Perform initial skin assessment on admission and as needed 2. Turn patient every 2 hours and PRN 3. Relieve pressure to bony prominences 4. Avoid shearing 5. Keep skin clean and dry 6. Alternate a full bath with partial baths for elderly 7. Apply lotion/moisturizer on skin 8. Monitor patient's hygiene practices 9. Float heels 10. Collaborate with interdisciplinary team and initiate plans and interventions as needed Outcome: Progressing Note: Evaluation of progress towards goal: Goal: Patient's nutritional intake is adequate Description: Patient's goal is: INTERVENTIONS 1. Assess and monitor food intake and supplements, patient food preferences, nausea, vomiting, labs, oral cavity (gums, teeth, tongue, mucosa), proper denture fit, and cultural beliefs 2. Monitor for signs of hypoglycemia and hyperglycemia 3. Collaborate with interdisciplinary team and initiate plan and interventions as ordered 4. Monitor patient's weight 5. Assist patient with meals/food selection 6. Assist patient with eating 7. Allow adequate time for meals 8. Provide pleasant environment during mealtime 9. Increase social contact during mealtimes 10. Plan activities to conserve energy 11. Encourage/perform oral hygiene as appropriate 12. Encourage patient to take dietary supplement as ordered 13. Collaborate with clinical court monitor 14. Include patient/ patient's customer account representative in decisions related to nutrition Outcome: Progressing Note: Evaluation of progress towards goal: Problem: Urinary Incontinence Goal: Perineal skin integrity is maintained or improved Description: INTERVENTIONS 1. Assess genitourinary system, perineal skin, labs (urinalysis), and history of incontinence to include past management, aggravating, and alleviating factors 2. Keep skin clean and dry 3. Apply skin protectant 4. Develop skin care regimen 5. Provide privacy when changing patients incontinence device to maintain their dignity 6. Consider placing an indwelling catheter 7. Collaborate with interdisciplinary team and initiate plans and interventions as needed Outcome: Progressing Note: Evaluation of progress towards goal: * Plan of Care - Pina Lin RN - 10/09/2023 7:07 PM EDT Problem: Pain Goal: Patient goal is pain score less than 4, able to rest, and participant in treatment plan as appropriate Description: INTERVENTIONS: 1. Encourage patient or legal customer account representative to report early pain and ask for pain medicine when needed 2. Assess pain using appropriate pain scale and include the scale used when documenting 3. Administer analgesics based on type and severity of pain and evaluate response within appropriate time frame 4. Implement non-pharmacological measures as appropriate and evaluate response 5. Consider cultural and social influences on pain and pain management 6. Notify LIP if interventions ineffective or patient reports new pain 7. Monitor vital signs including pulse ox, end-tidal CO2 based on pain intervention 8. Reassess pain per policy 9. Teach patient or legal customer account representative interventions for comforting Outcome: Progressing Note: Evaluation of progress towards goal: Pt displays no S&S of being in pain at this time. VSS. PRN pain medication given per patient request and as needed based on pain assessment. Will continue to monitor and assess. Problem: Safety Goal: Patient will be injury free during hospitalization Description: INTERVENTIONS: 1. Assess patient's risk for falls and implement fall prevention plan of care per policy 2. Provide and maintain a safe environment 3. Proper use of double Identifiers 4. Medication administration using the 5 rights 5. Hand hygiene 6. Specimens are labeled at the bedside 7. Instruct patient/ patient customer account representative about use of safety devices 8. Include patient/ patient customer account representative in decisions related to safety Outcome: Progressing Note: Evaluation of progress towards goal: Pt has no signs of injury at this time. Will continue tomonitor. Problem: Infection Goal: Absence of infection during hospitalization Description: Interventions: 1. Assess and monitor for signs and symptoms of infection 2. Monitor lab/diagnostic results 3. Monitor all insertion sites i.e., indwelling lines, tubes and drains 4. Monitor endotracheal (as able) and nasal secretions for changes in amount and color 5. Administer medications as ordered 6. Instruct and encourage patient and family to use good hand hygiene technique 7. Identify and instruct patient/patient customer account representative in use of appropriate isolation precautionsfor identified infection/symptoms 8. Provide and discuss with patient/patient customer account representative on educational MDRO sheet 9. Encourage and monitor nutritional status daily and consult court monitor if indicated 10. Implement neutropenic guidelines as needed 11. Review exposure to history of communicable disease and recent travel history on admission 12. Encourage annual influenza vaccine 13. Encourage pneumonia vaccine Outcome: Progressing Note: Evaluation of progress towards goal: Patient labs drawn and monitored, sites assessed and reassessed for signs and symptoms of infection. Problem: Knowledge Deficit Goal: Patient/patient customer account representative demonstrates understanding of disease process, treatment plan,medications, and discharge instructions Description: INTERVENTIONS 1. Complete learning assessment and assess knowledge base 2. Provide teaching at level of understanding 3. Provide teaching via preferred learning method(s) Outcome: Progressing Note: Evaluation of progress towards goal: Patient educated on disease process, medications, and plan of care. Patient demonstrates need for education reinforent. Will continue to educate on care plan. Problem: Discharge Planning Goal: Discharge to post-acute care, other facility, or home with appropriate resources Description: Patient's goal is: INTERVENTIONS 1. Conduct assessment to determine patient/family and health care team treatment goals, and need for post-acute services based on payer coverage, community resources, and patient preferences, and barriers to discharge 2. Coordinate with Social work, Care Navigation, and Utilization Review to arrange appropriate level of services according to patient's needs based on patient preference and payer coverage in collaboration with the physician and health care team 3. Address psychosocial, clinical, and financial barriers to discharge as identified in assessment in conjunction with the patient/family and health care team 4. Consult appropriate ancillary services (i.e.. PT/OT/ST, etc) as needed 5. Communicate with and update the patient/family, physician, and health care team regarding progress on the discharge plan 6. Identify discharge learning needs (meds, wound care, etc). 7. Arrange for needed discharge transportation as appropriate Outcome: Progressing Note: Evaluation of progress towards goal: Patient not appropriate for discharge at this time. Problem: Moderate - High Risk Fall Score Description: Bell Fall Score of =/> 25 or indicated by [facility] Assessment Goal: Patient should be free from fall Description: Interventions: 1. [place] to environment 2. Hourly rounds addressing the 4 P's (Pain, Positioning, Possessions, Potty) 3. Clear area of hazards (spills, clutter, electrical cords, unnecessary equipment) 4. Place equipment (bed & TV controls, call light, phone, urinal) within reach 5. Encourage patient to wear glasses and hearing aides as appropriate 6. Maintain bed in lowest position 7. Lock wheels on bed/wheelchair 8. Provide adequate lighting, including night light 9. Assess need for additional bedding, food/fluids, pain med's prior to sleep/routinely 10. Provide gripper slippers or personal non-skid footwear 11. Teach patient and patient customer account representative to maintain environment for safety and engage in all aspects of fall prevention program 12. Remind patient to call for help before getting out of bed 13. Initiate bed/chair/exit alarms supportive devices as appropriate, (chair wedge, no-skid floor mat, raised edge mattress, hip protectors) 14. Locate patient bed assignment for optimal visualization 15. Evaluate and identify Safe Patient Handling Equipment needs 16. Provide supervision when out of bed or chair 17. Utilize gait belt as needed to assist with ambulation 18. Place adaptive equipment (cane, walker) within reach 19. Request patient customer account representative bring adaptive equipment/mobility aids from home or obtain and provide as needed 20. Consult pharmacy regarding effects of med's affecting mobility, cognition, and alternatives 21. Obtain physician order for PT if risk factors associated with mobility are present 22. Obtain physician order for OT as appropriate 23. Utilize diversional activities 24. Educate patient and patient customer account representative how to maintain a safe environment during visitationtimes (notify nurse prior to leaving bedside) 25. Consider appropriateness of medical or non-bilingual medical assistant 26. Set up voiding schedule as appropriate (every 2 hours) Outcome: Progressing Note: Evaluation of progress towards goal: No new falls or injuries noted. Safe environment maintained. Hourly rounding performed. Fall risk identification band in place. Will continue to monitor andassess. Problem: Glucose Imbalance Goal: Clinical indication of glucose balance is achieved Description: Patient's goal is: INTERVENTIONS 1. Monitor blood glucose levels as ordered 2. Administer medications as ordered 3. Notify physician of ineffective treatment plan Outcome: Progressing Note: Evaluation of progress towards goal: Glucose balance is achieved. BS checked PRN and per policy. Insulin given as needed. Goal: Patient's discharge needs are met Description: Patient's goal is: INTERVENTIONS 1. Assess patient for self-management skills 2. Encourage participation in diabetes management 3. Identify potential discharge barriers on admission and throughout hospital stay 4. Involve patient/S.O. in discharge planning process 5. Communicate referral to music educator as appropriate 6. Communicate referral to court monitor as appropriate 7. Collaborate with case management/secondary social studies teacher for discharge needs Outcome: Progressing Note: Evaluation of progress towards goal: Patient not appropriate for discharge at this time. Problem: Multi-Drug Resistant Organism / Rule-Out Infection Prevention Goal: Prevent transmission of infection Description: INTERVENTIONS 1. Place patient in private room or in room with patient with same disease 2. Discard single-use items 3. Clean reusable equipment between patients 4. Wear gloves for direct and indirect contact with patient or contaminants 5. Change gloves between tasks and procedures 6. Wash hands before and after caring for each patient 7. Wear appropriate personal protective equipment in relation to the indicated isolation type 8. Place appropriate isolation signage on patient's door 9. Provide patient/ patient customer account representative with isolation education. Outcome: Progressing Note: Evaluation of progress towards goal: Patient labs drawn and monitored, sites assessed and reassessed for signs and symptoms of infection. Problem: Potential for Compromised Skin Integrity Goal: Skin integrity is maintained or improved Description: Patient's goal is: INTERVENTIONS 1. Perform initial skin assessment on admission and as needed 2. Turn patient every 2 hours and PRN 3. Relieve pressure to bony prominences 4. Avoid shearing 5. Keep skin clean and dry 6. Alternate a full bath with partial baths for elderly 7. Apply lotion/moisturizer on skin 8. Monitor patient's hygiene practices 9. Float heels 10. Collaborate with interdisciplinary team and initiate plans and interventions as needed Outcome: Progressing Note: Evaluation of progress towards goal: No new signs of skin breakdown. Turning performed every 2 hours and PRN. Skin care performed. Will continue to monitor and assess. Goal: Patient's nutritional intake is adequate Description: Patient's goal is: INTERVENTIONS 1. Assess and monitor food intake and supplements, patient food preferences, nausea, vomiting, labs, oral cavity (gums, teeth, tongue, mucosa), proper denture fit, and cultural beliefs 2. Monitor for signs of hypoglycemia and hyperglycemia 3. Collaborate with interdisciplinary team and initiate plan and interventions as ordered 4. Monitor patient's weight 5. Assist patient with meals/food selection 6. Assist patient with eating 7. Allow adequate time for meals 8. Provide pleasant environment during mealtime 9. Increase social contact during mealtimes 10. Plan activities to conserve energy 11. Encourage/perform oral hygiene as appropriate 12. Encourage patient to take dietary supplement as ordered 13. Collaborate with clinical court monitor 14. Include patient/ patient's customer account representative in decisions related to nutrition Outcome: Progressing Note: Evaluation of progress towards goal: Patient appropriate for room service and eats independently. Nutritional status assessed and reassessed per policy. Problem: Urinary Incontinence Goal: Perineal skin integrity is maintained or improved Description: INTERVENTIONS 1. Assess genitourinary system, perineal skin, labs (urinalysis), and history of incontinence to include past management, aggravating, and alleviating factors 2. Keep skin clean and dry 3. Apply skin protectant 4. Develop skin care regimen 5. Provide privacy when changing patients incontinence device to maintain their dignity 6. Consider placing an indwelling catheter 7. Collaborate with interdisciplinary team and initiate plans and interventions as needed Outcome: Progressing Note: Evaluation of progress towards goal: Patient repositioned at least Q2 hours. Heels floated, skin care provided. * Plan of Care - Zakia Arias RN - 10/09/2023 7:26 AM EDT Problem: Pain Goal: Patient goal is pain score less than 4, able to rest, and participant in treatment plan as appropriate Description: INTERVENTIONS: 1. Encourage patient or legal customer account representative to report early pain and ask for pain medicine when needed 2. Assess pain using appropriate pain scale and include the scale used when documenting 3. Administer analgesics based on type and severity of pain and evaluate response within appropriate time frame 4. Implement non-pharmacological measures as appropriate and evaluate response 5. Consider cultural and social influences on pain and pain management 6. Notify LIP if interventions ineffective or patient reports new pain 7. Monitor vital signs including pulse ox, end-tidal CO2 based on pain intervention 8. Reassess pain per policy 9. Teach patient or legal customer account representative interventions for comforting Outcome: Progressing Note: Evaluation of progress towards goal: Director Of Brand Marketing assessed pt pain in the beginning and throughout shift. Pt stated a tolerable pain goal was zero. Director Of Brand Marketing medicated pt pain per order. Will continue to monitor. Problem: Safety Goal: Patient will be injury free during hospitalization Description: INTERVENTIONS: 1. Assess patient's risk for falls and implement fall prevention plan of care per policy 2. Provide and maintain a safe environment 3. Proper use of double Identifiers 4. Medication administration using the 5 rights 5. Hand hygiene 6. Specimens are labeled at the bedside 7. Instruct patient/ patient customer account representative about use of safety devices 8. Include patient/ patient customer account representative in decisions related to safety Outcome: Progressing Note: Evaluation of progress towards goal: Patient safety maintained, area clear of hazards, hourlyrounding continued, bed locked in lowest position, alarm on as applicable, safety educated completed with family, no injuries noted at this time. Problem: Knowledge Deficit Goal: Patient/patient customer account representative demonstrates understanding of disease process, treatment plan,medications, and discharge instructions Description: INTERVENTIONS 1. Complete learning assessment and assess knowledge base 2. Provide teaching at level of understanding 3. Provide teaching via preferred learning method(s) Outcome: Progressing Note: Evaluation of progress towards goal: Pt. verbalizes understanding of treatment and current medications. Will continue to reinforce in preparation for discharge. Problem: Discharge Planning Goal: Discharge to post-acute care, other facility, or home with appropriate resources Description: Patient's goal is: INTERVENTIONS 1. Conduct assessment to determine patient/family and health care team treatment goals, and need for post-acute services based on payer coverage, community resources, and patient preferences, and barriers to discharge 2. Coordinate with Social work, Care Navigation, and Utilization Review to arrange appropriate level of services according to patient's needs based on patient preference and payer coverage in collaboration with the physician and health care team 3. Address psychosocial, clinical, and financial barriers to discharge as identified in assessment in conjunction with the patient/family and health care team 4. Consult appropriate ancillary services (i.e.. PT/OT/ST, etc) as needed 5. Communicate with and update the patient/family, physician, and health care team regarding progress on the discharge plan 6. Identify discharge learning needs (meds, wound care, etc). 7. Arrange for needed discharge transportation as appropriate Outcome: Progressing Note: Evaluation of progress towards goal: Not appropriate at this time for discharge will continueto monitor and follow for changes. Problem: Moderate - High Risk Fall Score Description: Bell Fall Score of =/> 25 or indicated by [facility] Assessment Goal: Patient should be free from fall Description: Interventions: 1. [place] to environment 2. Hourly rounds addressing the 4 P's (Pain, Positioning, Possessions, Potty) 3. Clear area of hazards (spills, clutter, electrical cords, unnecessary equipment) 4. Place equipment (bed & TV controls, call light, phone, urinal) within reach 5. Encourage patient to wear glasses and hearing aides as appropriate 6. Maintain bed in lowest position 7. Lock wheels on bed/wheelchair 8. Provide adequate lighting, including night light 9. Assess need for additional bedding, food/fluids, pain med's prior to sleep/routinely 10. Provide gripper slippers or personal non-skid footwear 11. Teach patient and patient customer account representative to maintain environment for safety and engage in all aspects of fall prevention program 12. Remind patient to call for help before getting out of bed 13. Initiate bed/chair/exit alarms supportive devices as appropriate, (chair wedge, no-skid floor mat, raised edge mattress, hip protectors) 14. Locate patient bed assignment for optimal visualization 15. Evaluate and identify Safe Patient Handling Equipment needs 16. Provide supervision when out of bed or chair 17. Utilize gait belt as needed to assist with ambulation 18. Place adaptive equipment (cane, walker) within reach 19. Request patient customer account representative bring adaptive equipment/mobility aids from home or obtain and provide as needed 20. Consult pharmacy regarding effects of med's affecting mobility, cognition, and alternatives 21. Obtain physician order for PT if risk factors associated with mobility are present 22. Obtain physician order for OT as appropriate 23. Utilize diversional activities 24. Educate patient and patient customer account representative how to maintain a safe environment during visitationtimes (notify nurse prior to leaving bedside) 25. Consider appropriateness of medical or non-bilingual medical assistant 26. Set up voiding schedule as appropriate (every 2 hours) Outcome: Progressing Note: Evaluation of progress towards goal: Patient remains free from injury at this time. Bell fall scale used and safety and fall precautions in place at this time. Room remains free from cutter and hourly rounding done to prevent falls. Will continue to monitor and reassess throughout shift. Problem: Glucose Imbalance Goal: Clinical indication of glucose balance is achieved Description: Patient's goal is: INTERVENTIONS 1. Monitor blood glucose levels as ordered 2. Administer medications as ordered 3. Notify physician of ineffective treatment plan Outcome: Progressing Note: Evaluation of progress towards goal: Blood glucose checked per orders, Insulin given per scale from order see MAR. Interventions given if needed. Goal: Patient's discharge needs are met Description: Patient's goal is: INTERVENTIONS 1. Assess patient for self-management skills 2. Encourage participation in diabetes management 3. Identify potential discharge barriers on admission and throughout hospital stay 4. Involve patient/S.O. in discharge planning process 5. Communicate referral to music educator as appropriate 6. Communicate referral to court monitor as appropriate 7. Collaborate with case management/secondary social studies teacher for discharge needs Outcome: Progressing Note: Evaluation of progress towards goal: na Problem: Multi-Drug Resistant Organism / Rule-Out Infection Prevention Goal: Prevent transmission of infection Description: INTERVENTIONS 1. Place patient in private room or in room with patient with same disease 2. Discard single-use items 3. Clean reusable equipment between patients 4. Wear gloves for direct and indirect contact with patient or contaminants 5. Change gloves between tasks and procedures 6. Wash hands before and after caring for each patient 7. Wear appropriate personal protective equipment in relation to the indicated isolation type 8. Place appropriate isolation signage on patient's door 9. Provide patient/ patient customer account representative with isolation education. Outcome: Progressing Note: Evaluation of progress towards goal: Wearing appropriate PPE while caring for patient. Following proper hand hygiene before entering the room and upon leaving the pt room as well. Problem: Potential for Compromised Skin Integrity Goal: Skin integrity is maintained or improved Description: Patient's goal is: INTERVENTIONS 1. Perform initial skin assessment on admission and as needed 2. Turn patient every 2 hours and PRN 3. Relieve pressure to bony prominences 4. Avoid shearing 5. Keep skin clean and dry 6. Alternate a full bath with partial baths for elderly 7. Apply lotion/moisturizer on skin 8. Monitor patient's hygiene practices 9. Float heels 10. Collaborate with interdisciplinary team and initiate plans and interventions as needed Outcome: Progressing Note: Evaluation of progress towards goal: Patient repositioned Q2 hrs. Patient kept clean and dry.Monitor for s/s of skin breakdown and treat/communicate with treatment team as needed. Goal: Patient's nutritional intake is adequate Description: Patient's goal is: INTERVENTIONS 1. Assess and monitor food intake and supplements, patient food preferences, nausea, vomiting, labs, oral cavity (gums, teeth, tongue, mucosa), proper denture fit, and cultural beliefs 2. Monitor for signs of hypoglycemia and hyperglycemia 3. Collaborate with interdisciplinary team and initiate plan and interventions as ordered 4. Monitor patient's weight 5. Assist patient with meals/food selection 6. Assist patient with eating 7. Allow adequate time for meals 8. Provide pleasant environment during mealtime 9. Increase social contact during mealtimes 10. Plan activities to conserve energy 11. Encourage/perform oral hygiene as appropriate 12. Encourage patient to take dietary supplement as ordered 13. Collaborate with clinical court monitor 14. Include patient/ patient's customer account representative in decisions related to nutrition Outcome: Progressing Note: Evaluation of progress towards goal: pt is on reg diet * Plan of Care - Chanel Lopez RN - 10/09/2023 1:50 AM EDT Problem: Pain Goal: Patient goal is pain score less than 4, able to rest, and participant in treatment plan as appropriate Description: INTERVENTIONS: 1. Encourage patient or legal customer account representative to report early pain and ask for pain medicine when needed 2. Assess pain using appropriate pain scale and include the scale used when documenting 3. Administer analgesics based on type and severity of pain and evaluate response within appropriate time frame 4. Implement non-pharmacological measures as appropriate and evaluate response 5. Consider cultural and social influences on pain and pain management 6. Notify LIP if interventions ineffective or patient reports new pain 7. Monitor vital signs including pulse ox, end-tidal CO2 based on pain intervention 8. Reassess pain per policy 9. Teach patient or legal customer account representative interventions for comforting Outcome: Progressing Note: Evaluation of progress towards goal: Pt denies and displays no S&S of being in pain at this time.PRN pain medication given per patient request and as needed based on pain assessment. Problem: Safety Goal: Patient will be injury free during hospitalization Description: INTERVENTIONS: 1. Assess patient's risk for falls and implement fall prevention plan of care per policy 2. Provide and maintain a safe environment 3. Proper use of double Identifiers 4. Medication administration using the 5 rights 5. Hand hygiene 6. Specimens are labeled at the bedside 7. Instruct patient/ patient customer account representative about use of safety devices 8. Include patient/ patient customer account representative in decisions related to safety Outcome: Progressing Note: Evaluation of progress towards goal: No new injuries noted. Safe environment maintained. Hourly rounding performed. Fall risk identification band in place. Problem: Infection Goal: Absence of infection during hospitalization Description: Interventions: 1. Assess and monitor for signs and symptoms of infection 2. Monitor lab/diagnostic results 3. Monitor all insertion sites i.e., indwelling lines, tubes and drains 4. Monitor endotracheal (as able) and nasal secretions for changes in amount and color 5. Administer medications as ordered 6. Instruct and encourage patient and family to use good hand hygiene technique 7. Identify and instruct patient/patient customer account representative in use of appropriate isolation precautionsfor identified infection/symptoms 8. Provide and discuss with patient/patient customer account representative on educational MDRO sheet 9. Encourage and monitor nutritional status daily and consult court monitor if indicated 10. Implement neutropenic guidelines as needed 11. Review exposure to history of communicable disease and recent travel history on admission 12. Encourage annual influenza vaccine 13. Encourage pneumonia vaccine Outcome: Progressing Note: Evaluation of progress towards goal: Standard precautions and hand hygiene done per protocol. IV caps on IV tubing, lines and caps changed per policy. Problem: Knowledge Deficit Goal: Patient/patient customer account representative demonstrates understanding of disease process, treatment plan,medications, and discharge instructions Description: INTERVENTIONS 1. Complete learning assessment and assess knowledge base 2. Provide teaching at level of understanding 3. Provide teaching via preferred learning method(s) Outcome: Progressing Note: Evaluation of progress towards goal: Pt educated on treatment plan. All meds discussed prior to administration. Problem: Moderate - High Risk Fall Score Description: Bell Fall Score of =/> 25 or indicated [address] [facility] Assessment Goal: Patient should be free from fall Description: Interventions: 1. [place] to environment 2. Hourly rounds addressing the 4 P's (Pain, Positioning, Possessions, Potty) 3. Clear area of hazards (spills, clutter, electrical cords, unnecessary equipment) 4. Place equipment (bed & TV controls, call light, phone, urinal) within reach 5. Encourage patient to wear glasses and hearing aides as appropriate 6. Maintain bed in lowest position 7. Lock wheels on bed/wheelchair 8. Provide adequate lighting, including night light 9. Assess need for additional bedding, food/fluids, pain med's prior to sleep/routinely 10. Provide gripper slippers or personal non-skid footwear 11. Teach patient and patient customer account representative to maintain environment for safety and engage in all aspects of fall prevention program 12. Remind patient to call for help before getting out of bed 13. Initiate bed/chair/exit alarms supportive devices as appropriate, (chair wedge, no-skid floor mat, raised edge mattress, hip protectors) 14. Locate patient bed assignment for optimal visualization 15. Evaluate and identify Safe Patient Handling Equipment needs 16. Provide supervision when out of bed or chair 17. Utilize gait belt as needed to assist with ambulation 18. Place adaptive equipment (cane, walker) within reach 19. Request patient customer account representative bring adaptive equipment/mobility aids from home or obtain and provide as needed 20. Consult pharmacy regarding effects of med's affecting mobility, cognition, and alternatives 21. Obtain physician order for PT if risk factors associated with mobility are present 22. Obtain physician order for OT as appropriate 23. Utilize diversional activities 24. Educate patient and patient customer account representative how to maintain a safe environment during visitationtimes (notify nurse prior to leaving bedside) 25. Consider appropriateness of medical or non-bilingual medical assistant 26. Set up voiding schedule as appropriate (every 2 hours) Outcome: Progressing Note: Evaluation of progress towards goal: No new falls noted. Safe environment maintained. Hourly rounding performed. Fall risk identification band in place. Problem: Glucose Imbalance Goal: Clinical indication of glucose balance is achieved Description: Patient's goal is: INTERVENTIONS 1. Monitor blood glucose levels as ordered 2. Administer medications as ordered 3. Notify physician of ineffective treatment plan Outcome: Progressing Note: Evaluation of progress towards goal: Blood sugar monitored as ordered. Problem: Multi-Drug Resistant Organism / Rule-Out Infection Prevention Goal: Prevent transmission of infection Description: INTERVENTIONS 1. Place patient in private room or in room with patient with same disease 2. Discard single-use items 3. Clean reusable equipment between patients 4. Wear gloves for direct and indirect contact with patient or contaminants 5. Change gloves between tasks and procedures 6. Wash hands before and after caring for each patient 7. Wear appropriate personal protective equipment in relation to the indicated isolation type 8. Place appropriate isolation signage on patient's door 9. Provide patient/ patient customer account representative with isolation education. Outcome: Progressing Note: Evaluation of progress towards goal: WBC noted. Lab results monitored. Antibiotics given as ordered. Problem: Potential for Compromised Skin Integrity Goal: Skin integrity is maintained or improved Description: Patient's goal is: INTERVENTIONS 1. Perform initial skin assessment on admission and as needed 2. Turn patient every 2 hours and PRN 3. Relieve pressure to bony prominences 4. Avoid shearing 5. Keep skin clean and dry 6. Alternate a full bath with partial baths for elderly 7. Apply lotion/moisturizer on skin 8. Monitor patient's hygiene practices 9. Float heels 10. Collaborate with interdisciplinary team and initiate plans and interventions as needed Outcome: Progressing Note: Evaluation of progress towards goal: No new signs of skin breakdown. Self turning. Skin care performed. Goal: Patient's nutritional intake is adequate Description: Patient's goal is: INTERVENTIONS 1. Assess and monitor food intake and supplements, patient food preferences, nausea, vomiting, labs, oral cavity (gums, teeth, tongue, mucosa), proper denture fit, and cultural beliefs 2. Monitor for signs of hypoglycemia and hyperglycemia 3. Collaborate with interdisciplinary team and initiate plan and interventions as ordered 4. Monitor patient's weight 5. Assist patient with meals/food selection 6. Assist patient with eating 7. Allow adequate time for meals 8. Provide pleasant environment during mealtime 9. Increase social contact during mealtimes 10. Plan activities to conserve energy 11. Encourage/perform oral hygiene as appropriate 12. Encourage patient to take dietary supplement as ordered 13. Collaborate with clinical court monitor 14. Include patient/ patient's customer account representative in decisions related to nutrition Outcome: Progressing Note: Evaluation of progress towards goal: Pt's nutritional intake is adequate. Diet order is regular. Problem: Urinary Incontinence Goal: Perineal skin integrity is maintained or improved Description: INTERVENTIONS 1. Assess genitourinary system, perineal skin, labs (urinalysis), and history of incontinence to include past management, aggravating, and alleviating factors 2. Keep skin clean and dry 3. Apply skin protectant 4. Develop skin care regimen 5. Provide privacy when changing patients incontinence device to maintain their dignity 6. Consider placing an indwelling catheter 7. Collaborate with interdisciplinary team and initiate plans and interventions as needed Outcome: Progressing Note: Evaluation of progress towards goal: Perineal skin integrity remains intact. Skin kept clean and dry. * Plan of Care - Jamey Lopez RN - 10/08/2023 3:18 PM EDT Problem: Pain Goal: Patient goal is pain score less than 4, able to rest, and participant in treatment plan as appropriate Description: INTERVENTIONS: 1. Encourage patient or legal customer account representative to report early pain and ask for pain medicine when needed 2. Assess pain using appropriate pain scale and include the scale used when documenting 3. Administer analgesics based on type and severity of pain and evaluate response within appropriate time frame 4. Implement non-pharmacological measures as appropriate and evaluate response 5. Consider cultural and social influences on pain and pain management 6. Notify LIP if interventions ineffective or patient reports new pain 7. Monitor vital signs including pulse ox, end-tidal CO2 based on pain intervention 8. Reassess pain per policy 9. Teach patient or legal customer account representative interventions for comforting Outcome: Progressing Note: Evaluation of progress towards goal: Patient is able to verbalize pain. PRN medications are available when needed. The patient is assessed as needed per policy. Nonpharmacologic interventions used when appropriate. Problem: Discharge Planning Goal: Discharge to post-acute care, other facility, or home with appropriate resources Description: Patient's goal is: INTERVENTIONS 1. Conduct assessment to determine patient/family and health care team treatment goals, and need for post-acute services based on payer coverage, community resources, and patient preferences, and barriers to discharge 2. Coordinate with Social work, Care Navigation, and Utilization Review to arrange appropriate level of services according to patient's needs based on patient preference and payer coverage in collaboration with the physician and health care team 3. Address psychosocial, clinical, and financial barriers to discharge as identified in assessment in conjunction with the patient/family and health care team 4. Consult appropriate ancillary services (i.e.. PT/OT/ST, etc) as needed 5. Communicate with and update the patient/family, physician, and health care team regarding progress on the discharge plan 6. Identify discharge learning needs (meds, wound care, etc). 7. Arrange for needed discharge transportation as appropriate Outcome: Progressing Note: Evaluation of progress towards goal: Discharge ongoing at this time Problem: Moderate - High Risk Fall Score Description: Bell Fall Score of =/> 25 or indicated by [facility] Assessment Goal: Patient should be free from fall Description: Interventions: 1. [place] to environment 2. Hourly rounds addressing the 4 P's (Pain, Positioning, Possessions, Potty) 3. Clear area of hazards (spills, clutter, electrical cords, unnecessary equipment) 4. Place equipment (bed & TV controls, call light, phone, urinal) within reach 5. Encourage patient to wear glasses and hearing aides as appropriate 6. Maintain bed in lowest position 7. Lock wheels on bed/wheelchair 8. Provide adequate lighting, including night light 9. Assess need for additional bedding, food/fluids, pain med's prior to sleep/routinely 10. Provide gripper slippers or personal non-skid footwear 11. Teach patient and patient customer account representative to maintain environment for safety and engage in all aspects of fall prevention program 12. Remind patient to call for help before getting out of bed 13. Initiate bed/chair/exit alarms supportive devices as appropriate, (chair wedge, no-skid floor mat, raised edge mattress, hip protectors) 14. Locate patient bed assignment for optimal visualization 15. Evaluate and identify Safe Patient Handling Equipment needs 16. Provide supervision when out of bed or chair 17. Utilize gait belt as needed to assist with ambulation 18. Place adaptive equipment (cane, walker) within reach 19. Request patient customer account representative bring adaptive equipment/mobility aids from home or obtain and provide as needed 20. Consult pharmacy regarding effects of med's affecting mobility, cognition, and alternatives 21. Obtain physician order for PT if risk factors associated with mobility are present 22. Obtain physician order for OT as appropriate 23. Utilize diversional activities 24. Educate patient and patient customer account representative how to maintain a safe environment during visitationtimes (notify nurse prior to leaving bedside) 25. Consider appropriateness of medical or non-bilingual medical assistant 26. Set up voiding schedule as appropriate (every 2 hours) Outcome: Progressing Note: Evaluation of progress towards goal: Fall risk assessment preformed and safety measures in place. Education given to family/patient. Will continue to monitor. Problem: Potential for Compromised Skin Integrity Goal: Skin integrity is maintained or improved Description: Patient's goal is: INTERVENTIONS 1. Perform initial skin assessment on admission and as needed 2. Turn patient every 2 hours and PRN 3. Relieve pressure to bony prominences 4. Avoid shearing 5. Keep skin clean and dry 6. Alternate a full bath with partial baths for elderly 7. Apply lotion/moisturizer on skin 8. Monitor patient's hygiene practices 9. Float heels 10. Collaborate with interdisciplinary team and initiate plans and interventions as needed Outcome: Progressing Note: Evaluation of progress towards goal: Skin integrity is maintained, patient able to turn and reposition self, skin kept clean and dry, heels floated. Goal: Patient's nutritional intake is adequate Description: Patient's goal is: INTERVENTIONS 1. Assess and monitor food intake and supplements, patient food preferences, nausea, vomiting, labs, oral cavity (gums, teeth, tongue, mucosa), proper denture fit, and cultural beliefs 2. Monitor for signs of hypoglycemia and hyperglycemia 3. Collaborate with interdisciplinary team and initiate plan and interventions as ordered 4. Monitor patient's weight 5. Assist patient with meals/food selection 6. Assist patient with eating 7. Allow adequate time for meals 8. Provide pleasant environment during mealtime 9. Increase social contact during mealtimes 10. Plan activities to conserve energy 11. Encourage/perform oral hygiene as appropriate 12. Encourage patient to take dietary supplement as ordered 13. Collaborate with clinical court monitor 14. Include patient/ patient's customer account representative in decisions related to nutrition Outcome: Progressing Note: Evaluation of progress towards goal: Patient tolerating regular diet at this time * PT/OT/RESEARCH TEST ENGINE OPERATOR - Charlene Moran PT - 10/08/2023 1:11 PM EDT Physical Therapy (P) CANCEL - Deferred Pt with failed safety screen at this time, will continue to follow. * PT/OT/RESEARCH TEST ENGINE OPERATOR - Katharina Cota OTR/L - 10/08/2023 12:53 PM EDT Occupational Therapy (P) CANCEL - Deferred (pt with failed early mobility screen; will hold eval until pt appropriate for therapeutic activity) * Discharge Planning Note - Alix Ivy RN - 10/08/2023 11:35 AM EDT Images from the original note were not included. DISCHARGE PLANNING NOTE Director Of Brand Marketing met with patient, introduced self, and explained role. Patient educated on safe discharge plan. Pt admitted 10/05/2023 with Shock (CMS-HCC) [R57.9] Hypotension [I95.9] Acute kidney injury (CMS-HCC) [N17.9] per chart review. Spoke with pt who said he lives at home alone he was supposed to start home care but ended back in the hospital before they could start care. He was not sure the name of the company per chart review [facility] was the home care agency who accepted his care at his last dc. He would like to return home with home care when it is time for discharge. Will make a referral back to [facility] per pt request. He has received 2 hemo dailysis treatments this admit he was not sure if they are to continue hemo asan outpt or not pt said he would have transportation to hemo as an out pt Past Medical History: Diagnosis Date Acute coronary syndrome ([facility]) Anxiety disorder Chronic obstructive asthma with exacerbation [place] COPD (chronic obstructive pulmonary disease) ([facility] Diabetes mellitus type 2, controlled ([facility] Essential hypertension Folate deficiency anemia Heart failure ([facility]) Megaloblastic anemia VT (myocardial infarction) ([facility] 06/2023 Muscle weakness (generalized) Myocardial infarct ([facility]) Obesity Obstructive sleep apnea SARAH (obstructive sleep apnea) Pancytopenia ([facility] Presence of coronary artery bypass graft stent Shock ([facility]) 10/05/2023 Supplemental oxygen dependent Prior to admission patient was living alone and self care. Medical equipment patient used prior to admission includes: CPAP, Home Oxygen, Nebulizer, Walker - Standard, and Wheelchair. Patient denies need for transportation/ food/ prescription medication assistance resources. PCP: Melanie Taylor DO Pharmacy:[facility] [place] PCP and pharmacy confirmed with patient. CN offered to assist with follow up appointment arrangements; patient declines - states will self-schedule follow up appointments. Melanie Taylor DO added to Follow Up Providers for Summary of Care communication. Per patient self-report: Drug use: denies Smoking: denies ETOH Use: denies Current discharge plan is: home with home care Services Requested: Services Requested Discharge Disposition: Home with home health services Facility/Service Name: [facility] Does the patient need discharge transportation arranged?: Yes Initial DC Assessment Completed: Yes Goals: Goals home (pt-stated) Evaluation of progress towards goal: progress to a safe discharge home with home care Will continue to follow as plan of care develops. CN discussed benefits and importance of medication compliance and follow ups. Please feel free to reach out for any discharge planning questions. - ALIX IVY RN 10/08/23 11:35 AM * Plan of Care - Olga Montoya RN - 10/07/2023 9:00 PM EDT Problem: Pain Goal: Patient goal is pain score less than 4, able to rest, and participant in treatment plan as appropriate Description: INTERVENTIONS: 1. Encourage patient or legal customer account representative to report early pain and ask for pain medicine when needed 2. Assess pain using appropriate pain scale and include the scale used when documenting 3. Administer analgesics based on type and severity of pain and evaluate response within appropriate time frame 4. Implement non-pharmacological measures as appropriate and evaluate response 5. Consider cultural and social influences on pain and pain management 6. Notify LIP if interventions ineffective or patient reports new pain 7. Monitor vital signs including pulse ox, end-tidal CO2 based on pain intervention 8. Reassess pain per policy 9. Teach patient or legal customer account representative interventions for comforting Outcome: Progressing Note: Evaluation of progress towards goal: Patient is able to verbalize pain. PRN medications are available when needed. The patient is assessed as needed per policy. Nonpharmacologic interventions used when appropriate. Problem: Discharge Planning Goal: Discharge to post-acute care, other facility, or home with appropriate resources Description: Patient's goal is: INTERVENTIONS 1. Conduct assessment to determine patient/family and health care team treatment goals, and need for post-acute services based on payer coverage, community resources, and patient preferences, and barriers to discharge 2. Coordinate with Social work, Care Navigation, and Utilization Review to arrange appropriate level of services according to patient's needs based on patient preference and payer coverage in collaboration with the physician and health care team 3. Address psychosocial, clinical, and financial barriers to discharge as identified in assessment in conjunction with the patient/family and health care team 4. Consult appropriate ancillary services (i.e.. PT/OT/ST, etc) as needed 5. Communicate with and update the patient/family, physician, and health care team regarding progress on the discharge plan 6. Identify discharge learning needs (meds, wound care, etc). 7. Arrange for needed discharge transportation as appropriate Outcome: Progressing Note: Evaluation of progress towards goal: Patient and family are aware of plan of care and discharge plans, discharge ongoing at this time. Will continue to monitor. Problem: Moderate - High Risk Fall Score Description: Bell Fall Score of =/> 25 or indicated by [facility] Assessment Goal: Patient should be free from fall Description: Interventions: 1. [place] to environment 2. Hourly rounds addressing the 4 P's (Pain, Positioning, Possessions, Potty) 3. Clear area of hazards (spills, clutter, electrical cords, unnecessary equipment) 4. Place equipment (bed & TV controls, call light, phone, urinal) within reach 5. Encourage patient to wear glasses and hearing aides as appropriate 6. Maintain bed in lowest position 7. Lock wheels on bed/wheelchair 8. Provide adequate lighting, including night light 9. Assess need for additional bedding, food/fluids, pain med's prior to sleep/routinely 10. Provide gripper slippers or personal non-skid footwear 11. Teach patient and patient customer account representative to maintain environment for safety and engage in all aspects of fall prevention program 12. Remind patient to call for help before getting out of bed 13. Initiate bed/chair/exit alarms supportive devices as appropriate, (chair wedge, no-skid floor mat, raised edge mattress, hip protectors) 14. Locate patient bed assignment for optimal visualization 15. Evaluate and identify Safe Patient Handling Equipment needs 16. Provide supervision when out of bed or chair 17. Utilize gait belt as needed to assist with ambulation 18. Place adaptive equipment (cane, walker) within reach 19. Request patient customer account representative bring adaptive equipment/mobility aids from home or obtain and provide as needed 20. Consult pharmacy regarding effects of med's affecting mobility, cognition, and alternatives 21. Obtain physician order for PT if risk factors associated with mobility are present 22. Obtain physician order for OT as appropriate 23. Utilize diversional activities 24. Educate patient and patient customer account representative how to maintain a safe environment during visitationtimes (notify nurse prior to leaving bedside) 25. Consider appropriateness of medical or non-bilingual medical assistant 26. Set up voiding schedule as appropriate (every 2 hours) Outcome: Progressing Note: Evaluation of progress towards goal: Patient is oriented to their environment, area is free from hazards, and hourly rounding is done. The bed alarm is on, bed is in lowest position, and call light is in reach. Fall risk armband is on patient. Problem: Potential for Compromised Skin Integrity Goal: Skin integrity is maintained or improved Description: Patient's goal is: INTERVENTIONS 1. Perform initial skin assessment on admission and as needed 2. Turn patient every 2 hours and PRN 3. Relieve pressure to bony prominences 4. Avoid shearing 5. Keep skin clean and dry 6. Alternate a full bath with partial baths for elderly 7. Apply lotion/moisturizer on skin 8. Monitor patient's hygiene practices 9. Float heels 10. Collaborate with interdisciplinary team and initiate plans and interventions as needed Outcome: Progressing Note: Evaluation of progress towards goal: Skin integrity is maintained, patient able to turn and reposition self, skin kept clean and dry, heels floated. Goal: Patient's nutritional intake is adequate Description: Patient's goal is: INTERVENTIONS 1. Assess and monitor food intake and supplements, patient food preferences, nausea, vomiting, labs, oral cavity (gums, teeth, tongue, mucosa), proper denture fit, and cultural beliefs 2. Monitor for signs of hypoglycemia and hyperglycemia 3. Collaborate with interdisciplinary team and initiate plan and interventions as ordered 4. Monitor patient's weight 5. Assist patient with meals/food selection 6. Assist patient with eating 7. Allow adequate time for meals 8. Provide pleasant environment during mealtime 9. Increase social contact during mealtimes 10. Plan activities to conserve energy 11. Encourage/perform oral hygiene as appropriate 12. Encourage patient to take dietary supplement as ordered 13. Collaborate with clinical court monitor 14. Include patient/ patient's customer account representative in decisions related to nutrition Outcome: Progressing Note: Evaluation of progress towards goal: Patient tolerating regular diet at this time * Query Response - Gopal Mccarthy MD - 10/07/2023 11:15 AM EDT Query Response Note CDI QUERY TEXT: Sepsis Clarification [id number] Disclaimer: By submitting this query, we are merely seeking further clarification of documentation to accurately reflect all conditions that you are monitoring, evaluating, treating or that extend the hospitalization or utilize additional resources of care. Please utilize your independent clinical judgment when addressing the question(s) below. Dear Dr. Mccarthy, Sepsis is documented in the medical record. The clinical indicators are also present. Please document if this patient has: - Sepsis - Severe Sepsis with - Acute renal failure - Acute respiratory failure - Septic shock -Other please specify The patient's Clinical Indicators include: 73 y/o male presents to ED with SOB. Oxygen 2L NC at baseline. Notes: 10/04-H&P: Shock of unknown etiology requiring pressors possible urinary source given acutely elevated creatinine in setting of UA positive for leukocyte esterase and calcium oxalate crystals - further workup pending 10/04-Nephrology Consult: Acute kidney injury. Shock: Hypovolemic versus septic shock: Requiring low-dose norepinephrine 0.02 micrograms/kilogram per minute. Vitals: 10/04-BP-105/52, 90/34; HR-64, 63; RR-22; Temp-98.6; O2-89%, 95% (2L NC) Labs: 10/04-CR-7.53, LA-1.8, PCT-0.16, BC-No Growth 1 Day 10/05-WBC-16.5, CR-3.66 Treatments: Monitored, IV Azithromycin, IV Ceftriaxone, PO Doxycycline, LR Bolus-1000ml, NS Bolus-150ml Thank you, Tina Hutson, [facility] Clinical Process Engineering Intern Clinical Documentation Integrity Email: [email or web address] RESPONSE TEXT: Provider dismissed this query because it was not applicable to the patient or not a valid query. unable to identify Query created by: Tina Hutson on 10/07/2023 6:50 AM Electronically signed by: Gopal Mccarthy MD 10/07/2023 11:13 AM * PT/OT/RESEARCH TEST ENGINE OPERATOR - Rhys Pierce PT - 10/07/2023 7:28 AM EDT Physical Therapy CANCEL - Deferred Per EMR pt remains on vasopressors, failed most recent safety screen. Continue as able with PT eval once patient medically stable and has increased activity orders with a pass on safety screen for early mobility. Hold PT eval at this time. * PT/OT/RESEARCH TEST ENGINE OPERATOR - CLINTON Springer/Cameron - 10/07/2023 7:15 AM EDT Occupational Therapy CANCEL - Deferred OT attempted. Pt has a failed early mobility screening; on vasopressors. Will continue to monitor. * Plan of Care - Romelia Blackman RN - 10/07/2023 7:03 AM EDT Problem: Pain Goal: Patient goal is pain score less than 4, able to rest, and participant in treatment plan as appropriate Description: INTERVENTIONS: 1. Encourage patient or legal customer account representative to report early pain and ask for pain medicine when needed 2. Assess pain using appropriate pain scale and include the scale used when documenting 3. Administer analgesics based on type and severity of pain and evaluate response within appropriate time frame 4. Implement non-pharmacological measures as appropriate and evaluate response 5. Consider cultural and social influences on pain and pain management 6. Notify LIP if interventions ineffective or patient reports new pain 7. Monitor vital signs including pulse ox, end-tidal CO2 based on pain intervention 8. Reassess pain per policy 9. Teach patient or legal customer account representative interventions for comforting Outcome: Progressing Note: Evaluation of progress towards goal: educated on 0-10 pain scale. Problem: Safety Goal: Patient will be injury free during hospitalization Description: INTERVENTIONS: 1. Assess patient's risk for falls and implement fall prevention plan of care per policy 2. Provide and maintain a safe environment 3. Proper use of double Identifiers 4. Medication administration using the 5 rights 5. Hand hygiene 6. Specimens are labeled at the bedside 7. Instruct patient/ patient customer account representative about use of safety devices 8. Include patient/ patient customer account representative in decisions related to safety Note: Evaluation of progress towards goal: educated on absence of restraint activity. Problem: Infection Goal: Absence of infection during hospitalization Description: Interventions: 1. Assess and monitor for signs and symptoms of infection 2. Monitor lab/diagnostic results 3. Monitor all insertion sites i.e., indwelling lines, tubes and drains 4. Monitor endotracheal (as able) and nasal secretions for changes in amount and color 5. Administer medications as ordered 6. Instruct and encourage patient and family to use good hand hygiene technique 7. Identify and instruct patient/patient customer account representative in use of appropriate isolation precautionsfor identified infection/symptoms 8. Provide and discuss with patient/patient customer account representative on educational MDRO sheet 9. Encourage and monitor nutritional status daily and consult court monitor if indicated 10. Implement neutropenic guidelines as needed 11. Review exposure to history of communicable disease and recent travel history on admission 12. Encourage annual influenza vaccine 13. Encourage pneumonia vaccine Note: Evaluation of progress towards goal: precautions as ordered. Problem: Knowledge Deficit Goal: Patient/patient customer account representative demonstrates understanding of disease process, treatment plan,medications, and discharge instructions Description: INTERVENTIONS 1. Complete learning assessment and assess knowledge base 2. Provide teaching at level of understanding 3. Provide teaching via preferred learning method(s) Note: Evaluation of progress towards goal: rn will continue to educate Problem: Discharge Planning Goal: Discharge to post-acute care, other facility, or home with appropriate resources Description: Patient's goal is: INTERVENTIONS 1. Conduct assessment to determine patient/family and health care team treatment goals, and need for post-acute services based on payer coverage, community resources, and patient preferences, and barriers to discharge 2. Coordinate with Social work, Care Navigation, and Utilization Review to arrange appropriate level of services according to patient's needs based on patient preference and payer coverage in collaboration with the physician and health care team 3. Address psychosocial, clinical, and financial barriers to discharge as identified in assessment in conjunction with the patient/family and health care team 4. Consult appropriate ancillary services (i.e.. PT/OT/ST, etc) as needed 5. Communicate with and update the patient/family, physician, and health care team regarding progress on the discharge plan 6. Identify discharge learning needs (meds, wound care, etc). 7. Arrange for needed discharge transportation as appropriate Note: Evaluation of progress towards goal: pending, care ricky following Problem: Moderate - High Risk Fall Score Description: Bell Fall Score of =/> 25 or indicated by [facility] Assessment Goal: Patient should be free from fall Description: Interventions: 1. [place] to environment 2. Hourly rounds addressing the 4 P's (Pain, Positioning, Possessions, Potty) 3. Clear area of hazards (spills, clutter, electrical cords, unnecessary equipment) 4. Place equipment (bed & TV controls, call light, phone, urinal) within reach 5. Encourage patient to wear glasses and hearing aides as appropriate 6. Maintain bed in lowest position 7. Lock wheels on bed/wheelchair 8. Provide adequate lighting, including night light 9. Assess need for additional bedding, food/fluids, pain med's prior to sleep/routinely 10. Provide gripper slippers or personal non-skid footwear 11. Teach patient and patient customer account representative to maintain environment for safety and engage in all aspects of fall prevention program 12. Remind patient to call for help before getting out of bed 13. Initiate bed/chair/exit alarms supportive devices as appropriate, (chair wedge, no-skid floor mat, raised edge mattress, hip protectors) 14. Locate patient bed assignment for optimal visualization 15. Evaluate and identify Safe Patient Handling Equipment needs 16. Provide supervision when out of bed or chair 17. Utilize gait belt as needed to assist with ambulation 18. Place adaptive equipment (cane, walker) within reach 19. Request patient customer account representative bring adaptive equipment/mobility aids from home or obtain and provide as needed 20. Consult pharmacy regarding effects of med's affecting mobility, cognition, and alternatives 21. Obtain physician order for PT if risk factors associated with mobility are present 22. Obtain physician order for OT as appropriate 23. Utilize diversional activities 24. Educate patient and patient customer account representative how to maintain a safe environment during visitationtimes (notify nurse prior to leaving bedside) 25. Consider appropriateness of medical or non-bilingual medical assistant 26. Set up voiding schedule as appropriate (every 2 hours) Note: Evaluation of progress towards goal: call light in reach, hourly rounding, educated on activity intolerance Problem: Glucose Imbalance Goal: Clinical indication of glucose balance is achieved Description: Patient's goal is: INTERVENTIONS 1. Monitor blood glucose levels as ordered 2. Administer medications as ordered 3. Notify physician of ineffective treatment plan Note: Evaluation of progress towards goal: monitoring Goal: Patient's discharge needs are met Description: Patient's goal is: INTERVENTIONS 1. Assess patient for self-management skills 2. Encourage participation in diabetes management 3. Identify potential discharge barriers on admission and throughout hospital stay 4. Involve patient/S.O. in discharge planning process 5. Communicate referral to music educator as appropriate 6. Communicate referral to court monitor as appropriate 7. Collaborate with case management/secondary social studies teacher for discharge needs Note: Evaluation of progress towards goal: pending Problem: Multi-Drug Resistant Organism / Rule-Out Infection Prevention Goal: Prevent transmission of infection Description: INTERVENTIONS 1. Place patient in private room or in room with patient with same disease 2. Discard single-use items 3. Clean reusable equipment between patients 4. Wear gloves for direct and indirect contact with patient or contaminants 5. Change gloves between tasks and procedures 6. Wash hands before and after caring for each patient 7. Wear appropriate personal protective equipment in relation to the indicated isolation type 8. Place appropriate isolation signage on patient's door 9. Provide patient/ patient customer account representative with isolation education. Note: Evaluation of progress towards goal: precautions as ordered. Problem: Potential for Compromised Skin Integrity Goal: Skin integrity is maintained or improved Description: Patient's goal is: INTERVENTIONS 1. Perform initial skin assessment on admission and as needed 2. Turn patient every 2 hours and PRN 3. Relieve pressure to bony prominences 4. Avoid shearing 5. Keep skin clean and dry 6. Alternate a full bath with partial baths for elderly 7. Apply lotion/moisturizer on skin 8. Monitor patient's hygiene practices 9. Float heels 10. Collaborate with interdisciplinary team and initiate plans and interventions as needed Note: Evaluation of progress towards goal: pillow support, patient turned self Goal: Patient's nutritional intake is adequate Description: Patient's goal is: INTERVENTIONS 1. Assess and monitor food intake and supplements, patient food preferences, nausea, vomiting, labs, oral cavity (gums, teeth, tongue, mucosa), proper denture fit, and cultural beliefs 2. Monitor for signs of hypoglycemia and hyperglycemia 3. Collaborate with interdisciplinary team and initiate plan and interventions as ordered 4. Monitor patient's weight 5. Assist patient with meals/food selection 6. Assist patient with eating 7. Allow adequate time for meals 8. Provide pleasant environment during mealtime 9. Increase social contact during mealtimes 10. Plan activities to conserve energy 11. Encourage/perform oral hygiene as appropriate 12. Encourage patient to take dietary supplement as ordered 13. Collaborate with clinical court monitor 14. Include patient/ patient's customer account representative in decisions related to nutrition Note: Evaluation of progress towards goal: as ordered Problem: Urinary Incontinence Goal: Perineal skin integrity is maintained or improved Description: INTERVENTIONS 1. Assess genitourinary system, perineal skin, labs (urinalysis), and history of incontinence to include past management, aggravating, and alleviating factors 2. Keep skin clean and dry 3. Apply skin protectant 4. Develop skin care regimen 5. Provide privacy when changing patients incontinence device to maintain their dignity 6. Consider placing an indwelling catheter 7. Collaborate with interdisciplinary team and initiate plans and interventions as needed Note: Evaluation of progress towards goal: cele care provided. * Plan of Care - Olga Montoya RN - 10/06/2023 7:33 PM EDT Problem: Pain Goal: Patient goal is pain score less than 4, able to rest, and participant in treatment plan as appropriate Description: INTERVENTIONS: 1. Encourage patient or legal customer account representative to report early pain and ask for pain medicine when needed 2. Assess pain using appropriate pain scale and include the scale used when documenting 3. Administer analgesics based on type and severity of pain and evaluate response within appropriate time frame 4. Implement non-pharmacological measures as appropriate and evaluate response 5. Consider cultural and social influences on pain and pain management 6. Notify LIP if interventions ineffective or patient reports new pain 7. Monitor vital signs including pulse ox, end-tidal CO2 based on pain intervention 8. Reassess pain per policy 9. Teach patient or legal customer account representative interventions for comforting Outcome: Progressing Note: Evaluation of progress towards goal: Patient is able to verbalize pain. PRN medications are available when needed. The patient is assessed as needed per policy. Nonpharmacologic interventions used when appropriate. Problem: Discharge Planning Goal: Discharge to post-acute care, other facility, or home with appropriate resources Description: Patient's goal is: INTERVENTIONS 1. Conduct assessment to determine patient/family and health care team treatment goals, and need for post-acute services based on payer coverage, community resources, and patient preferences, and barriers to discharge 2. Coordinate with Social work, Care Navigation, and Utilization Review to arrange appropriate level of services according to patient's needs based on patient preference and payer coverage in collaboration with the physician and health care team 3. Address psychosocial, clinical, and financial barriers to discharge as identified in assessment in conjunction with the patient/family and health care team 4. Consult appropriate ancillary services (i.e.. PT/OT/ST, etc) as needed 5. Communicate with and update the patient/family, physician, and health care team regarding progress on the discharge plan 6. Identify discharge learning needs (meds, wound care, etc). 7. Arrange for needed discharge transportation as appropriate Outcome: Progressing Note: Evaluation of progress towards goal: Discharge ongoing at this time Problem: Moderate - High Risk Fall Score Description: Bell Fall Score of =/> 25 or indicated by [facility] Assessment Goal: Patient should be free from fall Description: Interventions: 1. [place] to environment 2. Hourly rounds addressing the 4 P's (Pain, Positioning, Possessions, Potty) 3. Clear area of hazards (spills, clutter, electrical cords, unnecessary equipment) 4. Place equipment (bed & TV controls, call light, phone, urinal) within reach 5. Encourage patient to wear glasses and hearing aides as appropriate 6. Maintain bed in lowest position 7. Lock wheels on bed/wheelchair 8. Provide adequate lighting, including night light 9. Assess need for additional bedding, food/fluids, pain med's prior to sleep/routinely 10. Provide gripper slippers or personal non-skid footwear 11. Teach patient and patient customer account representative to maintain environment for safety and engage in all aspects of fall prevention program 12. Remind patient to call for help before getting out of bed 13. Initiate bed/chair/exit alarms supportive devices as appropriate, (chair wedge, no-skid floor mat, raised edge mattress, hip protectors) 14. Locate patient bed assignment for optimal visualization 15. Evaluate and identify Safe Patient Handling Equipment needs 16. Provide supervision when out of bed or chair 17. Utilize gait belt as needed to assist with ambulation 18. Place adaptive equipment (cane, walker) within reach 19. Request patient customer account representative bring adaptive equipment/mobility aids from home or obtain and provide as needed 20. Consult pharmacy regarding effects of med's affecting mobility, cognition, and alternatives 21. Obtain physician order for PT if risk factors associated with mobility are present 22. Obtain physician order for OT as appropriate 23. Utilize diversional activities 24. Educate patient and patient customer account representative how to maintain a safe environment during visitationtimes (notify nurse prior to leaving bedside) 25. Consider appropriateness of medical or non-bilingual medical assistant 26. Set up voiding schedule as appropriate (every 2 hours) Outcome: Progressing Note: Evaluation of progress towards goal: Fall risk assessment preformed and safety measures in place. Education given to family/patient. Will continue to monitor. Problem: Potential for Compromised Skin Integrity Goal: Skin integrity is maintained or improved Description: Patient's goal is: INTERVENTIONS 1. Perform initial skin assessment on admission and as needed 2. Turn patient every 2 hours and PRN 3. Relieve pressure to bony prominences 4. Avoid shearing 5. Keep skin clean and dry 6. Alternate a full bath with partial baths for elderly 7. Apply lotion/moisturizer on skin 8. Monitor patient's hygiene practices 9. Float heels 10. Collaborate with interdisciplinary team and initiate plans and interventions as needed Outcome: Progressing Note: Evaluation of progress towards goal: Skin integrity is maintained, patient able to turn and reposition self, skin kept clean and dry, heels floated. Goal: Patient's nutritional intake is adequate Description: Patient's goal is: INTERVENTIONS 1. Assess and monitor food intake and supplements, patient food preferences, nausea, vomiting, labs, oral cavity (gums, teeth, tongue, mucosa), proper denture fit, and cultural beliefs 2. Monitor for signs of hypoglycemia and hyperglycemia 3. Collaborate with interdisciplinary team and initiate plan and interventions as ordered 4. Monitor patient's weight 5. Assist patient with meals/food selection 6. Assist patient with eating 7. Allow adequate time for meals 8. Provide pleasant environment during mealtime 9. Increase social contact during mealtimes 10. Plan activities to conserve energy 11. Encourage/perform oral hygiene as appropriate 12. Encourage patient to take dietary supplement as ordered 13. Collaborate with clinical court monitor 14. Include patient/ patient's customer account representative in decisions related to nutrition Outcome: Progressing Note: Evaluation of progress towards goal: Patient tolerating regular diet at this time * Plan of Care - Luther Cardona RN - 10/06/2023 4:31 PM EDT Problem: Pain Goal: Patient goal is pain score less than 4, able to rest, and participant in treatment plan as appropriate Description: INTERVENTIONS: 1. Encourage patient or legal customer account representative to report early pain and ask for pain medicine when needed 2. Assess pain using appropriate pain scale and include the scale used when documenting 3. Administer analgesics based on type and severity of pain and evaluate response within appropriate time frame 4. Implement non-pharmacological measures as appropriate and evaluate response 5. Consider cultural and social influences on pain and pain management 6. Notify LIP if interventions ineffective or patient reports new pain 7. Monitor vital signs including pulse ox, end-tidal CO2 based on pain intervention 8. Reassess pain per policy 9. Teach patient or legal customer account representative interventions for comforting Outcome: Progressing Note: Evaluation of progress towards goal: Vital signs stable. Pain score of 0. Will continue to monitor and assess. Problem: Safety Goal: Patient will be injury free during hospitalization Description: INTERVENTIONS: 1. Assess patient's risk for falls and implement fall prevention plan of care per policy 2. Provide and maintain a safe environment 3. Proper use of double Identifiers 4. Medication administration using the 5 rights 5. Hand hygiene 6. Specimens are labeled at the bedside 7. Instruct patient/ patient customer account representative about use of safety devices 8. Include patient/ patient customer account representative in decisions related to safety Outcome: Progressing Note: Evaluation of progress towards goal: Pt has no signs of injury at this time. Will continue tomonitor. Problem: Infection Goal: Absence of infection during hospitalization Description: Interventions: 1. Assess and monitor for signs and symptoms of infection 2. Monitor lab/diagnostic results 3. Monitor all insertion sites i.e., indwelling lines, tubes and drains 4. Monitor endotracheal (as able) and nasal secretions for changes in amount and color 5. Administer medications as ordered 6. Instruct and encourage patient and family to use good hand hygiene technique 7. Identify and instruct patient/patient customer account representative in use of appropriate isolation precautionsfor identified infection/symptoms 8. Provide and discuss with patient/patient customer account representative on educational MDRO sheet 9. Encourage and monitor nutritional status daily and consult court monitor if indicated 10. Implement neutropenic guidelines as needed 11. Review exposure to history of communicable disease and recent travel history on admission 12. Encourage annual influenza vaccine 13. Encourage pneumonia vaccine Outcome: Progressing Note: Evaluation of progress towards goal: Pt is afebrile at this time. CBC being monitored Problem: Knowledge Deficit Goal: Patient/patient customer account representative demonstrates understanding of disease process, treatment plan,medications, and discharge instructions Description: INTERVENTIONS 1. Complete learning assessment and assess knowledge base 2. Provide teaching at level of understanding 3. Provide teaching via preferred learning method(s) Outcome: Progressing Note: Evaluation of progress towards goal: Will continue to educated pt of process, plan, and medications. Problem: Discharge Planning Goal: Discharge to post-acute care, other facility, or home with appropriate resources Description: Patient's goal is: INTERVENTIONS 1. Conduct assessment to determine patient/family and health care team treatment goals, and need for post-acute services based on payer coverage, community resources, and patient preferences, and barriers to discharge 2. Coordinate with Social work, Care Navigation, and Utilization Review to arrange appropriate level of services according to patient's needs based on patient preference and payer coverage in collaboration with the physician and health care team 3. Address psychosocial, clinical, and financial barriers to discharge as identified in assessment in conjunction with the patient/family and health care team 4. Consult appropriate ancillary services (i.e.. PT/OT/ST, etc) as needed 5. Communicate with and update the patient/family, physician, and health care team regarding progress on the discharge plan 6. Identify discharge learning needs (meds, wound care, etc). 7. Arrange for needed discharge transportation as appropriate Outcome: Progressing Note: Evaluation of progress towards goal: Discharge plan is continuing to be discussed. Problem: Moderate - High Risk Fall Score Description: Bell Fall Score of =/> 25 or indicated by [facility] Assessment Goal: Patient should be free from fall Description: Interventions: 1. [place] to environment 2. Hourly rounds addressing the 4 P's (Pain, Positioning, Possessions, Potty) 3. Clear area of hazards (spills, clutter, electrical cords, unnecessary equipment) 4. Place equipment (bed & TV controls, call light, phone, urinal) within reach 5. Encourage patient to wear glasses and hearing aides as appropriate 6. Maintain bed in lowest position 7. Lock wheels on bed/wheelchair 8. Provide adequate lighting, including night light 9. Assess need for additional bedding, food/fluids, pain med's prior to sleep/routinely 10. Provide gripper slippers or personal non-skid footwear 11. Teach patient and patient customer account representative to maintain environment for safety and engage in all aspects of fall prevention program 12. Remind patient to call for help before getting out of bed 13. Initiate bed/chair/exit alarms supportive devices as appropriate, (chair wedge, no-skid floor mat, raised edge mattress, hip protectors) 14. Locate patient bed assignment for optimal visualization 15. Evaluate and identify Safe Patient Handling Equipment needs 16. Provide supervision when out of bed or chair 17. Utilize gait belt as needed to assist with ambulation 18. Place adaptive equipment (cane, walker) within reach 19. Request patient customer account representative bring adaptive equipment/mobility aids from home or obtain and provide as needed 20. Consult pharmacy regarding effects of med's affecting mobility, cognition, and alternatives 21. Obtain physician order for PT if risk factors associated with mobility are present 22. Obtain physician order for OT as appropriate 23. Utilize diversional activities 24. Educate patient and patient customer account representative how to maintain a safe environment during visitationtimes (notify nurse prior to leaving bedside) 25. Consider appropriateness of medical or non-bilingual medical assistant 26. Set up voiding schedule as appropriate (every 2 hours) Outcome: Progressing Note: Evaluation of progress towards goal: Will continue to educated pt of process, plan, and medications. Bed is in the lowest position, wheels are locked, 3/4 side rails are up. Hourly rounding performed. Problem: Glucose Imbalance Goal: Clinical indication of glucose balance is achieved Description: Patient's goal is: INTERVENTIONS 1. Monitor blood glucose levels as ordered 2. Administer medications as ordered 3. Notify physician of ineffective treatment plan Outcome: Progressing Note: Evaluation of progress towards goal: Blood sugar is being monitored and insulin given per order. Problem: Multi-Drug Resistant Organism / Rule-Out Infection Prevention Goal: Prevent transmission of infection Description: INTERVENTIONS 1. Place patient in private room or in room with patient with same disease 2. Discard single-use items 3. Clean reusable equipment between patients 4. Wear gloves for direct and indirect contact with patient or contaminants 5. Change gloves between tasks and procedures 6. Wash hands before and after caring for each patient 7. Wear appropriate personal protective equipment in relation to the indicated isolation type 8. Place appropriate isolation signage on patient's door 9. Provide patient/ patient customer account representative with isolation education. Outcome: Progressing Note: Evaluation of progress towards goal: Standard precautions are in place. Problem: Potential for Compromised Skin Integrity Goal: Skin integrity is maintained or improved Description: Patient's goal is: INTERVENTIONS 1. Perform initial skin assessment on admission and as needed 2. Turn patient every 2 hours and PRN 3. Relieve pressure to bony prominences 4. Avoid shearing 5. Keep skin clean and dry 6. Alternate a full bath with partial baths for elderly 7. Apply lotion/moisturizer on skin 8. Monitor patient's hygiene practices 9. Float heels 10. Collaborate with interdisciplinary team and initiate plans and interventions as needed Outcome: Progressing Note: Evaluation of progress towards goal: Skin integrity is being maintained. Pt is being turned every two hours. Skin is clean and dry. Problem: Urinary Incontinence Goal: Perineal skin integrity is maintained or improved Description: INTERVENTIONS 1. Assess genitourinary system, perineal skin, labs (urinalysis), and history of incontinence to include past management, aggravating, and alleviating factors 2. Keep skin clean and dry 3. Apply skin protectant 4. Develop skin care regimen 5. Provide privacy when changing patients incontinence device to maintain their dignity 6. Consider placing an indwelling catheter 7. Collaborate with interdisciplinary team and initiate plans and interventions as needed Outcome: Progressing Note: Evaluation of progress towards goal: Call is in place. Skin is kept clean and dry. * Discharge Planning Note - Yahaira Pastrana RN - 10/06/2023 3:37 PM EDT DISCHARGE PLANNING NOTE Director Of Brand Marketing attempted to see patient. Pt receiving HD. CN will follow up. - Yahaira Pastrana RN 10/06/23 3:37 PM * Patient Blood Management - Magaly Ratliff RN - 10/06/2023 8:54 AM EDT BLOOD MANAGEMENT (BLOODLESS CARE) Documentation indicated that patient refuses blood products. He reports that he had a transfusion in [place] and everything went poof. He said he had dialysis after that and it helped him feel better. But he states he does not want anymore blood transfusions. I asked him if a physician believed his life depended on it, would he still refuse. He said, that would be a different story. He indicated he would accept in that case. He would not be considered bloodless care. I educated him on Patient Blood Management to assist in optimizing the patient's own blood to try to avoid a blood transfusion. A consult to Benign Hematology/Blood Management can be placed if the team would like. Otherwise, Bloodless Care/Blood Management will not be following this patient. Will remove from Bloodless Care list. Please feel free to contact us with any questions or concerns. [facility]/ Bloodless Care [facility] [address] [place] [address] Office: [phone] * Plan of Care - Ysabel Alcazar RN - 10/05/2023 7:56 PM EDT Problem: Pain Goal: Patient goal is pain score less than 4, able to rest, and participant in treatment plan as appropriate Description: INTERVENTIONS: 1. Encourage patient or legal customer account representative to report early pain and ask for pain medicine when needed 2. Assess pain using appropriate pain scale and include the scale used when documenting 3. Administer analgesics based on type and severity of pain and evaluate response within appropriate time frame 4. Implement non-pharmacological measures as appropriate and evaluate response 5. Consider cultural and social influences on pain and pain management 6. Notify LIP if interventions ineffective or patient reports new pain 7. Monitor vital signs including pulse ox, end-tidal CO2 based on pain intervention 8. Reassess pain per policy 9. Teach patient or legal customer account representative interventions for comforting Outcome: Progressing Note: Evaluation of progress towards goal: Pt displays no S&S of being in pain at this time. VSS. PRN pain medication given per patient request and as needed based on pain assessment. Will continue to monitor and assess. Problem: Safety Goal: Patient will be injury free during hospitalization Description: INTERVENTIONS: 1. Assess patient's risk for falls and implement fall prevention plan of care per policy 2. Provide and maintain a safe environment 3. Proper use of double Identifiers 4. Medication administration using the 5 rights 5. Hand hygiene 6. Specimens are labeled at the bedside 7. Instruct patient/ patient customer account representative about use of safety devices 8. Include patient/ patient customer account representative in decisions related to safety Outcome: Progressing Note: Evaluation of progress towards goal: No new falls or injuries noted. Safe environment maintained. Hourly rounding performed. Fall risk identification band in place. Will continue to monitor andassess. Problem: Infection Goal: Absence of infection during hospitalization Description: Interventions: 1. Assess and monitor for signs and symptoms of infection 2. Monitor lab/diagnostic results 3. Monitor all insertion sites i.e., indwelling lines, tubes and drains 4. Monitor endotracheal (as able) and nasal secretions for changes in amount and color 5. Administer medications as ordered 6. Instruct and encourage patient and family to use good hand hygiene technique 7. Identify and instruct patient/patient customer account representative in use of appropriate isolation precautionsfor identified infection/symptoms 8. Provide and discuss with patient/patient customer account representative on educational MDRO sheet 9. Encourage and monitor nutritional status daily and consult court monitor if indicated 10. Implement neutropenic guidelines as needed 11. Review exposure to history of communicable disease and recent travel history on admission 12. Encourage annual influenza vaccine 13. Encourage pneumonia vaccine Outcome: Progressing Note: Evaluation of progress towards goal: VSS. WBC noted. Lab results monitored. Antibiotics givenas ordered. Will continue to monitor and assess. Problem: Knowledge Deficit Goal: Patient/patient customer account representative demonstrates understanding of disease process, treatment plan,medications, and discharge instructions Description: INTERVENTIONS 1. Complete learning assessment and assess knowledge base 2. Provide teaching at level of understanding 3. Provide teaching via preferred learning method(s) Outcome: Progressing Note: Evaluation of progress towards goal: Patient and family updated on plan of care at this time as well as mediation education, will continue to monitor and assess Problem: Discharge Planning Goal: Discharge to post-acute care, other facility, or home with appropriate resources Description: Patient's goal is: INTERVENTIONS 1. Conduct assessment to determine patient/family and health care team treatment goals, and need for post-acute services based on payer coverage, community resources, and patient preferences, and barriers to discharge 2. Coordinate with Social work, Care Navigation, and Utilization Review to arrange appropriate level of services according to patient's needs based on patient preference and payer coverage in collaboration with the physician and health care team 3. Address psychosocial, clinical, and financial barriers to discharge as identified in assessment in conjunction with the patient/family and health care team 4. Consult appropriate ancillary services (i.e.. PT/OT/ST, etc) as needed 5. Communicate with and update the patient/family, physician, and health care team regarding progress on the discharge plan 6. Identify discharge learning needs (meds, wound care, etc). 7. Arrange for needed discharge transportation as appropriate Outcome: Progressing Note: Evaluation of progress towards goal: Patient not appropriate for discharge at this time, willcontinue to monitor and assess Problem: Moderate - High Risk Fall Score Description: Bell Fall Score of =/> 25 or indicated by [facility] Assessment Goal: Patient should be free from fall Description: Interventions: 1. [place] to environment 2. Hourly rounds addressing the 4 P's (Pain, Positioning, Possessions, Potty) 3. Clear area of hazards (spills, clutter, electrical cords, unnecessary equipment) 4. Place equipment (bed & TV controls, call light, phone, urinal) within reach 5. Encourage patient to wear glasses and hearing aides as appropriate 6. Maintain bed in lowest position 7. Lock wheels on bed/wheelchair 8. Provide adequate lighting, including night light 9. Assess need for additional bedding, food/fluids, pain med's prior to sleep/routinely 10. Provide gripper slippers or personal non-skid footwear 11. Teach patient and patient customer account representative to maintain environment for safety and engage in all aspects of fall prevention program 12. Remind patient to call for help before getting out of bed 13. Initiate bed/chair/exit alarms supportive devices as appropriate, (chair wedge, no-skid floor mat, raised edge mattress, hip protectors) 14. Locate patient bed assignment for optimal visualization 15. Evaluate and identify Safe Patient Handling Equipment needs 16. Provide supervision when out of bed or chair 17. Utilize gait belt as needed to assist with ambulation 18. Place adaptive equipment (cane, walker) within reach 19. Request patient customer account representative bring adaptive equipment/mobility aids from home or obtain and provide as needed 20. Consult pharmacy regarding effects of med's affecting mobility, cognition, and alternatives 21. Obtain physician order for PT if risk factors associated with mobility are present 22. Obtain physician order for OT as appropriate 23. Utilize diversional activities 24. Educate patient and patient customer account representative how to maintain a safe environment during visitationtimes (notify nurse prior to leaving bedside) 25. Consider appropriateness of medical or non-bilingual medical assistant 26. Set up voiding schedule as appropriate (every 2 hours) Outcome: Progressing Note: Evaluation of progress towards goal: No new falls or injuries noted. Safe environment maintained. Hourly rounding performed. Fall risk identification band in place. Will continue to monitor andassess. Problem: Glucose Imbalance Goal: Clinical indication of glucose balance is achieved Description: Patient's goal is: INTERVENTIONS 1. Monitor blood glucose levels as ordered 2. Administer medications as ordered 3. Notify physician of ineffective treatment plan Outcome: Progressing Note: Evaluation of progress towards goal: will continue to monitor and assess Goal: Patient's discharge needs are met Description: Patient's goal is: INTERVENTIONS 1. Assess patient for self-management skills 2. Encourage participation in diabetes management 3. Identify potential discharge barriers on admission and throughout hospital stay 4. Involve patient/S.O. in discharge planning process 5. Communicate referral to music educator as appropriate 6. Communicate referral to court monitor as appropriate 7. Collaborate with case management/secondary social studies teacher for discharge needs Outcome: Progressing Note: Evaluation of progress towards goal: Patient not appropriate for discharge at this time, willcontinue to monitor and assess Problem: Multi-Drug Resistant Organism / Rule-Out Infection Prevention Goal: Prevent transmission of infection Description: INTERVENTIONS 1. Place patient in private room or in room with patient with same disease 2. Discard single-use items 3. Clean reusable equipment between patients 4. Wear gloves for direct and indirect contact with patient or contaminants 5. Change gloves between tasks and procedures 6. Wash hands before and after caring for each patient 7. Wear appropriate personal protective equipment in relation to the indicated isolation type 8. Place appropriate isolation signage on patient's door 9. Provide patient/ patient customer account representative with isolation education. Outcome: Progressing Note: Evaluation of progress towards goal: VSS. WBC noted. Lab results monitored. Antibiotics givenas ordered. Will continue to monitor and assess. documented in this encounterOhio[facility]-21-[facility]24 Hospital Discharge instructions* Discharge Instructions* Kylee Ramirez MD - 10/12/2023 1:45 PM EDT You were admitted to [facility] following an episode of septic shock, possibly secondary to urinary tract infection versus community-acquired pneumonia. You were treated with antibiotics and provided with oxygen as needed. Upon admission, your blood pressure was very low and so you were treated with IV blood pressure medications to keep your blood pressure from going too low. During your admission, you also seen by our nephrologists and field laboratory operator's for management of your history of heart failure. You were given medications and dialysis for further management of these conditions. Additionally, during your stay were found to have low hemoglobin (which can be indicative of ongoing bleeding) for this you were given blood and iron as needed. Our oncology physician assistant were consulted and recommended that you get evaluated with a endoscopic procedure, however prior to this you will need to stop some of your home medications. We recommend that you follow up with her oncology physician assistant as shown below for further discussions on outpatient evaluation. Upon discharge you can continue taking your home medications, however you should STOP taking your lisinopril, Actos, and Aspirin. You will need to take antibiotics (Augmentin) for 2 days following your hospital discharge - please take this twice a day. After discharge, it is important that you follow up with the following specialists: Please follow-up with your primary care physician within 1 week of discharge for hospital follow-up Please followup with Nephrology within 2 weeks of your discharge for follow up Please followup with your field laboratory operator within 2 weeks of discharge for hospital follow-up Please followup with Gastroenterology within 2 weeks of discharge for hospital follow-up Please refer to the rest of your discharge paperwork for any new medication/changes to your previous medications. If at any point you begin to experience severe headache, nausea, vomiting, chest pain, shortness ofbreath, difficulty breathing, or fever/chills associated with any of the former, these are indications that you should return to the hospital for further evaluation. Thank you for allowing us to participate in your care. documented in this encounterOhioHealth [facility]08-21-2024 Hospital course Narrative* Kylee Ramirez MD - 10/12/2023 1:23 PM EDT Images from the original note were not included. ICU DISCHARGE SUMMARY Patient Name: Brian Mandel : 1950 PCP: Melanie Taylor DO DATE OF ADMISSION: 10/05/2023 DATE OF DISCHARGE: 10/12/2023 PRIMARY DISCHARGE DIAGNOSIS: Septic Shock Acute kidney injury likely related to Acute Tubular Necrosis secondary to septic shock from September of 2023 . Recent Proteus mirabilis urinary tract infection August 2020 SECONDARY DISCHARGE DIAGNOSIS: Chronic obstructive pulmonary disease on home oxygen Type 2 diabetes mellitus Primary hypertension Obesity Obstructive sleep apnea Hyperlipidemia Atherosclerotic coronary artery disease status post coronary artery bypass grafting unknown anatomy. done at the [facility] in [place]. Echocardiogram from July of 2023 revealed ejection fraction of 55-60%, grade 1 diastolic dysfunction, mildly reduced RV function, moderate to severe aortic regurgitation, moderate to severe aortic stenosis, trace to mild mitral regurgitation, [id number] tricuspid regurgitation. CONSULTANTS: Consulting Providers Provider Service Specialty Academic Gi Consult Service [facility] Only -- Gastroenterology Will Lopez MD -- Nephrology PROCEDURES: Dialysis HPI/HOSPITAL COURSE SUMMARY: Brian Mandel is a 73 y.o. male with a history of COPD (on home 2L O2), HTN, HLD, T2DM (09/22/23 A1c 5.5), Aortic stenosis, macrocytic anemia, CAD c/b NSTEMI in 06/2023 s/p CABG, Chronic diastolic HF on GDMT with recent admission 2/2 acute exacerbation on 09/11/23 (07/2023 TTE with LVEF 50-55%, mod-sev AR, mild- mod TR), recent MRSA bacteremia (07/2023). Of note, he has a recent history of CRISTINE. He was recently admitted in on 09/21/2023 for CRISTINE. At that time, he complained of progressively worsening frequency and dysuria. He endorsed a remote history of nephrolithiasis and was noted to have urinary retention (466 per bladder scan)/ labs notable Creatinine 1.70 BUN 28 GFR 42 lactate 3.3. Urine culture during admission was notable for Proteus mirabilis. He was discharged on hospital day 3 with cipro 500mg BID [id number] and schedules followup with urology. He presented to the ED on night of 10/04/2023 with chief complaint of shortness of breath for the last several days that he thought was secondary to his anemia. He also endorsed chronic cough worsening over the last week as well as watery diarrhea (3 times overnight) and vomiting (3 episodes). Hemoglobin was stable around 8. He had significantly elevated and uptrending creatinine (6.9 0->7.09). UA notable for moderate leukocyte esterase, trace ketonuria, calcium oxalate crystals present. BNPwas 833. Troponin's mildly elevated at 21->23. Lactate mildly elevated at 2.7. Flu, COVID, RSV negative. CT of the chest showed moderately large pleural effusion and/or pneumonia. CTA/P unremarkable. He was presumed to have community-acquired pneumonia and so was treated with azithromycin/ceftriaxone. However, he developed hypotension, was given 1 L LR bolus, requiring pressors (Levo 0.04). Given his pressor requirements, patient was admitted to ICU. Upon presentation he was hypotensive at 87/44 on Levophed 0.04. However he was had no complaints and was asymptomatic, and in no acute distress. He was A&O x4 and conversational.Given his recent history of CRISTINE and significantly elevated and uptrending creatinine, Nephrology was consulted for consideration of emergent hemodialysis. Of note, central line was attempted and failed while patient was in the ED, therefore if patient needs dialysis, will tentatively plan on IR consult for tunneled catheter. 10/06/2023: Patient was given hemodialysis for volume and solute control with good response. Blood pressures have been in the 80/40s on levophed and midrodrine. Patient notes that he is somewhat nauseous, otherwise no complaints. 10/07/2023: No acute overnight events. We will try a Lasix challenge per Nephrology, patient urinated 1.2 Ls . Doxycycline switch to Unasyn for coverage of community- acquired pneumonia. IR consulted for left thoracentesis, remove 0.5 L of fluid sent for analysis. 10/08/2023: No acute overnight events. Continue antibiotics. Patient continues to need Levophed 0.02, goal for today is wean him off of pressor support. Pleural fluid meets transudative criteria with a high cellcount. 10/09/2023: Hgb decreased to 6.8, patient did not want blood products and a repeat hgb was 7.2. Patient's bloodpressures improved after 500 mL LR bolus last night, however, required Levophed this morning. Further workup for causes of hypotension (cortisol, TSH/free T4) were within normal limits 10/10/2023: Previous UA positive, we will repeat urine culture. Cardiology consulted given concern for midodrine administration worsening aortic valvular disease. 10/11/2023. Patient had low hemoglobin at 6.6, transfuse 1 unit of blood. Placed GI consult for evaluation of GI bleed - discussed no urgent endoscopic intervention. Can plan on outpatient scope, however will need to stop Brilinta 5 days prior to procedure Discontinued aspirin per Cardiology DISCHARGE INSTRUCTIONS: Disposition: discharge to Another Hospital Condition: good Activity: as tolerated Diet: Adult diet Regular Texture; No Added Salt (3-4 gm Sodium) Code Status: Full FOLLOW-UP: Follow up with primary care provider within 1-2 weeks of discharge Gastroenterology follow up in 2-3 weeks Cardiology follow up in 2-3 weeks Nephrology follow up in 2 3 weeks Physical Exam: BP 121/72 Pulse 85 Temp 36.8 C (98.3 F) (Oral) Resp 24 Ht 152.4 cm (5') Wt 105.6 kg (232 lb 12.9 oz) SpO2 (!) 82% BMI 45.47 kg/m Physical Exam Constitutional: General: He is not in acute distress. Appearance: He is obese. He is ill-appearing. Eyes: Extraocular Movements: Extraocular movements intact. Pupils: Pupils are equal, round, and reactive to light. Cardiovascular: Rate and Rhythm: Normal rate and regular rhythm. Pulses: Normal pulses. Heart sounds: Murmur heard. Pulmonary: Effort: No respiratory distress. Breath sounds: No stridor. No wheezing. Chest: Chest wall: No tenderness. Abdominal: Palpations: Abdomen is soft. There is no mass. Tenderness: There is no abdominal tenderness. There is no guarding. Musculoskeletal: Cervical back: No rigidity or tenderness. Right lower leg: Edema present. Left lower leg: Edema present. Lymphadenopathy: Cervical: No cervical adenopathy. Skin: General: Skin is warm and dry. Capillary Refill: Capillary refill takes less than 2 seconds. Coloration: Skin is pale. Neurological: Mental Status: He is alert and oriented to person, place, and time. Psychiatric: Behavior: Behavior normal. Thought Content: Thought content normal. Judgment: Judgment normal. Comments: Anxious Intake/output: Net IO Since Admission: -6,560.74 mL [10/12/23 1323] Labs: Results from last 7 days Lab Units 10/12/23 0335 10/11/23 1000 10/11/23 0205 10/10/23 0450 10/10/23 0220 WBC X10E9/L 7.3 -- 6.9 -- 6.9 HEMOGLOBIN g/dL 7.7* 7.7* 6.6* < > 6.8* HEMATOCRIT % 22.0* 22.4* 19.1* < > 21.0* PLATELETS X10E9/L 109* -- 108* -- 113* < > = values in this interval not displayed. Results from last 7 days Lab Units 10/12/23 0335 10/11/23 0205 10/10/23 0220 INR 1.1 1.2* 1.2* Results from last 7 days Lab Units 10/12/23 1055 10/12/23 0335 10/11/23 1000 10/11/23 0205 10/10/23 1358 10/10/23 0220 SODIUM mmol/L -- 142 -- 143 -- 144 POTASSIUM mmol/L 3.7 3.2* 3.8 3.7 < > 3.8 CHLORIDE mmol/L -- 98 -- 101 -- 101 CO2 mmol/L -- 34* -- 32 -- 35* BUN mg/dL -- 22 -- 29* -- 35* CREATININE mg/dL -- 1.72* -- 2.15* -- 3.03* CALCIUM mg/dL -- 8.9 -- 8.9 -- 9.2 PHOSPHORUS mg/dL 3.6 2.3* -- 2.5 -- 3.4 MAGNESIUM mg/dL -- 1.5* -- 2.1 -- 1.6* < > = values in this interval not displayed. Results from last 7 days Lab Units 10/12/23 0335 10/11/23 0205 10/10/23 0220 ALBUMIN g/dL 3.2 3.2 3.1* TOTAL PROTEIN g/dL 6.2 5.9* 6.2 ALT U/L 9 7 7 AST U/L 16 14 11 ALK PHOS U/L 73 62 58 Results from last 7 days Lab Units 10/12/23 0335 10/11/23 0205 10/10/23 0220 GLUCOSE mg/dL 92 92 86 Lab Results Component Value Date HGBA1C 5.5 09/21/2023 Results from last 7 days Lab Units 10/12/23 0355 10/11/23 0205 BNP pg/mL 322* 570* Results from last 7 days Lab Units 10/12/23 1055 10/11/23 0205 10/10/23 1358 PROCALCITONIN ng/mL 0.18* 0.25* 0.31* Results from last 7 days Lab Units 10/10/23 0220 FERRITIN ng/mL 167 IRON ug/dL 46* TIBC-CALC ONLY DO NOT ORDER ug/dL 279 IRON SATURATION % SATURATION 17* Results from last 7 days Lab Units 10/05/23 1459 CHOLESTEROL mg/dL 136* HDL mg/dL 41 LDL (CALC) mg/dL 78 TRIGLYCERIDES mg/dL 83 Lab Results Component Value Date WBCU 440 (H) 10/09/2023 SPECIFICGRA 1.012 10/09/2023 LEUKOCYTE Large (A) 10/09/2023 NITRITEN Negative 09/21/2023 PHNUR 6.0 09/21/2023 PROTEINNUR Negative 09/21/2023 KETONESNUR Negative 09/21/2023 UROBILINOGEN <1.1 10/09/2023 BLOODHGBNU Large (A) 09/21/2023 Imaging X-ray chest 1 view Result Date: 10/06/2023 Clinical history: Acute respiratory failure Views: 1 Comparison: 10/05/2023 Findings/Impression: 1. Left pleural effusion with atelectasis. Right lung clear. Heart size prominent. Vasculature stable. Central line overlies SVC. 2. In summary, continued abnormal chest without interval change. Workstati on:[id number] Finalized by Ricardo Serra MD on 10/06/2023 7:39 AM IR CICV non tunneled more than 5 years Result Date: 10/05/2023 CLINICAL INDICATION: ESRD, need for dialysis COMPARISON: None TECHNIQUE: Procedure performed by Interventional Radiologist Neo Anne MD Reference Air Kerma = 17.8 mGy Fluoroscopy time: 1.1 minutes Saved images: 3 CONSENT: The reason of the procedure was discussed with the patient. The procedure, expectations, risks, benefits, options and alternatives were discussed. All of the patient?s questions were answered. The patient understands that the results cannot be guaranteed. The procedure is indicated and the risks are acceptable. Consent was obtained. PROCEDURE: 1. Ultrasound-guided left internal jugular vein access. Placement of a temporary trialysis catheter. Details of procedure: Patie nt placed in the supine position. The left neck was prepped and draped in the usual sterile fashion. Under continuous ultrasound guidance, a patent and compressible left internal jugular vein was accessed with a micropuncture needle. Permanent ultrasound images were stored in PACS. A microwire was placed into the right atrium. A skin francois was made. The needle was removed. A micropuncture sheath was placed. The inner dilator and wire were removed. An Amplatz wire was advanced into the IVC. The micropuncture sheath was then removed. The track was dilated. A temporary trialysis catheter was placed.. The wire was removed. 2-0 Prolene suture was used to secure the line to the skin. All the lumens aspirated and flushed appropriately. Sterile caps applied. A sterile dressing was applied. Patienttolerated the procedure well and there were no immediate complications. FINDINGS: Patent and compressible left internal jugular vein. Satisfactory placement of temporary trialysis catheter IMPRESSION: Successful ultrasound and fluoroscopic guided placement of left internal jugular trialysis catheter Okay to use Finalized by Neo Anne on 10/05/2023 7:02 PM X-ray chest 1 view Result Date: 10/05/2023 History: Known pleural effusion, reassess severity Exam/Technique: AP view of the chest. XR CHEST 1VW Comparison: Recent studies Findings: The heart mediastinum are grossly stable however left hemithorax and heart border obscured by overlapping disease. Mild congestion improved from 09/08/2023. No focal right lung disease. Persistent consolidation and suspected effusion left mid and lower lung. IMPRESSION: * Mild congestion improved from previous with persistent large consolidation and effusionobscuring the left mid and lower hemithorax. Finalized by Soham Chatman DO on 10/05/2023 12:21 PM Last Echo Echo limited W/ contrast Result Date: 09/08/2023 Left Ventricle: Left ventricle appears normal in size. Wall thickness is normal. Systolic function is normal with an ejection fraction of 55-60%. See wall score diagram for wall motion abnormalities.Pericardium: There is pleural effusion. The study had technical difficulties. The study was difficult due to patient's body habitus and poor acoustic windows. Echo complete W/ contrast Result Date: 07/27/2023 Left Ventricle: Left ventricle appears normal in size. Systolic function is normal with an ejectionfraction of 55-60%. Right Ventricle: Systolic function is mildly reduced. Abnormal tricuspid annular plane systolic excursion. Aortic Valve: There is moderate to severe regurgitation. There is moderate to severe stenosis. The calculated aortic valve area is 0.59 cm2. The calculated aortic valve peak gradient is 68.00 mmHg. The calculated aortic valve mean gradient is 36.00 mmHg. Tricuspid Valve: There is mild to moderate regurgitation. There is no evidence of tricuspid valve stenosis. Cultures Microbiology Results Procedure Component Value Units Date/Time Urine culture [[id number]] (Abnormal) Collected: 10/10/23 1415 Specimen: Urine Updated: 10/11/23 1020 Culture 10,000 to 50,000 ORGANISMS/mL DOROTHEA ALBICANS Body fluid culture includes gram stain [[id number]] Collected: 10/07/23 1345 Specimen: Pleural Fluid Updated: 10/12/23 0653 Gram Stain Result WHITE BLOOD CELLS PRESENT NO ORGANISMS SEEN ON CONCENTRATED SMEAR Culture NO GROWTH 5 DAYS Anaerobic culture [[id number]] Collected: 10/07/23 1345 Specimen: Pleural Fluid Updated: 10/12/23 0726 Culture NO GROWTH 5 DAYS Fungal culture includes fungal smear [[id number]] Collected: 10/07/23 1345 Specimen: Pleural Fluid Updated: 10/08/23 0720 Fungal smear -- NO FUNGAL ELEMENTS SEEN ON CONCENTRATED SMEAR Culture PENDING Mrsa Pcr nasal swab [[id number]] Collected: 10/05/23 1723 Specimen: Nasal Updated: 10/05/23 1927 Mrsa PCR Negative Resp Pathogens Panel/SARS CoV-2 [[id number]] Collected: 10/05/23 172 Specimen: Nasopharynx Updated: 10/05/23 193 Specimen Source NASO PHARYNX Adenovirus Detection by PCR Not Detected Coronavirus 229e Not Detected Coronavirus hku1 Not Detected Coronavirus nl63 Not Detected Coronavirus oc43 Not Detected Human metapneumovirus Not Detected Rhinovirus/enterovirus Not Detected Influenza A Not Detected Influenza B Not Detected Parainfluenza 1 Not Detected Parainfluenza 2 Not Detected Parainfluenza 3 Not Detected Parainfluenza 4 Not Detected Respiratory syncytial virus Not Detected Bordetella parapertussis Not Detected Bordetella pertussis Not Detected Chlamydophila pneumophilia Not Detected Mycoplasma pneumoniae Not Detected SARS COV 2 Not Detected Blood culture #2 [[id number]] Collected: 10/05/23 165 Specimen: Blood Updated: 10/10/23 182 Culture NO GROWTH 5 DAYS Blood culture #1 [[id number]] Collected: 10/05/23 1652 Specimen: Blood Updated: 10/10/23 182 Culture NO GROWTH 5 DAYS DISCHARGE MEDICATIONS: Your medication list START taking these medications Instructions Last Dose Given Next Dose Due amoxicillin-pot clavulanate 875-125 mg per tablet Commonly known as: AUGMENTIN Take 1 tablet by mouth in the morning and 1 tablet before bedtime. Do all this for 2 days. CONTINUE taking these medications Instructions Last Dose Given Next Dose Due acetaminophen 325 mg tablet Commonly known as: TYLENOL albuterol 2.5 mg /3 mL (0.083 %) nebulizer solution Commonly known as: PROVENTIL,VENTOLIN amitriptyline 25 mg tablet Commonly known as: ELAVIL aspirin 81 mg benzonatate 200 mg capsule Commonly known as: GALLO SADLER Take 1 capsule (200 mg total) by mouth 3 (three) times a day as needed for cough. bisacodyL 10 mg suppository Commonly known as: DULCOLAX BRILINTA 90 mg tablet Generic drug: ticagrelor dapagliflozin propanediol 10 mg tablet Commonly known as: FARXIGA Take 1 tablet (10 mg total) by mouth in the morning. folic acid 1 mg tablet Commonly known as: FOLVITE furosemide 20 mg tablet Commonly known as: LASIX Take 1 tablet (20 mg total) by mouth 2 (two) times a day before meals. HYDROcodone-acetaminophen 5-325 mg per tablet Commonly known as: NORCO hydrOXYzine 50 mg tablet Commonly known as: ATARAX melatonin tablet Commonly known as: CIRCADIN metFORMIN XR 750 mg 24 hr tablet Commonly known as: GLUCOPHAGE XR metoprolol 12.5 mg Commonly known as: LOPRESSOR metoprolol succinate XL 25 mg 24 hr tablet Commonly known as: TOPROL XL nitroglycerin 0.4 MG SL tablet Commonly known as: NITROSTAT PARoxetine 10 mg tablet Commonly known as: PAXIL simethicone 80 mg chewable tablet Commonly known as: MYLICON simvastatin 40 mg tablet Commonly known as: ZOCOR STOP taking these medications lisinopriL 2.5 mg tablet Commonly known as: PRINIVIL,ZESTRIL pioglitazone 30 mg tablet Commonly known as: ACTOS sodium chloride 0.9 % injection Where to Get Your Medications These medications were sent to [id number] - [place] - [address] [facility] [address] [facility] [place] [address] amoxicillin-pot clavulanate 875-125 mg per tablet Kylee Ramirez MD Internal Medicine - PGY1 Associated attestation - Shirley Anderson MD - 10/12/2023 1:50 PM EDT Attestation signed by 1:50 PM PULMONARY/CRITICAL CARE ATTENDING ATTESTATION I have personally and independently examined the patient. I confirm the note and agree with the assessment and plan as documented by the resident. Please note there may be additional comments below. Shirley Anderson MD [facility] Pul[facility] / Critical Care Pager: [phone] documented in this encounterOhioHealth [facility] Center08-21-2024 History of Present illness Narrative* Mahesh Banerjee MD - 10/12/2023 11:16 AM EDT Images from the original note were not included. Nephrology Daily Progress Note INTERVAL HISTORY: Denies any shortness breath denies any chest pain. Denies any dizziness. Continues to be on oxygen via nasal cannula. Not on pressors. VITAL SIGNS TREND: Vitals: 10/11/23 2300 10/12/23 0000 10/12/23 0400 10/12/23 0800 BP: 120/59 118/56 117/60 128/66 Pulse: 76 78 79 85 Resp: 16 Temp: 36.8 C (98.3 F) 36.8 C (98.3 F) TempSrc: Oral Oral SpO2: 96% 100% 94% 93% Weight: 105.6 kg (232 lb 12.9 oz) Height: INTAKE/OUTPUT: Intake/Output Summary (Last 24 hours) at 10/12/2023 1116 Last data filed at 10/12/2023 0600 Gross per 24 hour Intake -- Output 2325 ml Net -2325 ml No intake/output data recorded. WEIGHT: Last 3 Weight Readings 10/10/23 0500 10/11/23 0500 10/12/23 0400 Weight: 103.4 kg (227 lb 15.3 oz) 107.5 kg (236 lb 15.9 oz) 105.6 kg (232 lb 12.9 oz) PHYSICAL EXAM: Blood pressure 128/66, pulse 85, temperature 36.8 C (98.3 F), temperature source Oral, resp. rate 16, height 152.4 cm (5'), weight 105.6 kg (232 lb 12.9 oz), SpO2 93%. Temp: [36.5 C (97.7 F)-36.8 C (98.3 F)] 36.8 C (98.3 F) Pulse: [76-93] 85 Resp: [16-25] 16 BP: (107-129)/(54-71) 128/66 SpO2: [93 %-100 %] 93 % O2 Device: Nasal cannula O2 Flow Rate (L/min): [2 L/min] 2 L/min General appearance: alert in no apparent distress. HEENT: no JVD, no lymphadenopathy. Heart exam: normal S1-S2 Systolic ejection murmur 3/6 Lungs: clear to auscultation bilaterally Abdomen: soft, no tenderness, no guarding, positive bowel sounds Extremities: Scant edema Vascular: adequate pulses and no carotid bruits. Musculoskeletal: no joint tenderness or swelling. LABORATORY EVALUATION: Results from last 7 days Lab Units 10/12/23 0355 10/12/23 0335 10/11/23 1000 10/11/23 0205 10/10/23 1358 10/10/23 0220 10/09/23 1010 10/09/23 0255 10/08/23 0210 SODIUM mmol/L -- 142 -- 143 -- 144 -- 143 138 POTASSIUM mmol/L -- 3.2* 3.8 3.7 4.0 3.8 < > 3.8 4.0 CHLORIDE mmol/L -- 98 -- 101 -- 101 -- 99 98 CO2 mmol/L -- 34* -- 32 -- 35* -- 33* 32 ANION GAP mmol/L -- 10 -- 10 -- 8 -- 11 8 BUN mg/dL -- 22 -- 29* -- 35* -- 38* 33* CREATININE mg/dL -- 1.72* -- 2.15* -- 3.03* -- 3.49* 3.37* CALCIUM mg/dL -- 8.9 -- 8.9 -- 9.2 -- 9.4 9.4 MAGNESIUM mg/dL -- 1.5* -- 2.1 -- 1.6* -- 2.0 2.4 PHOSPHORUS mg/dL -- 2.3* -- 2.5 -- 3.4 -- 3.9 3.9 CALCIUM, IONIZED mg/dL 4.7 -- -- 4.8 -- -- -- -- -- < > = values in this interval not displayed. Results from last 7 days Lab Units 10/12/23 0335 10/11/23 0205 10/10/23 0220 10/09/23 1220 10/09/23 0255 10/08/23 0210 TOTAL PROTEIN g/dL 6.2 5.9* 6.2 -- 6.8 6.5 ALBUMIN g/dL 3.2 3.2 3.1* -- 3.5 3.6 AST U/L 16 14 11 -- 12 12 ALT U/L 9 7 7 -- 8 9 TOTAL BILIRUBIN mg/dL 1.1 0.8 1.0 -- 0.8 0.6 BILIRUBIN, URINE -- -- -- Negative -- -- ALK PHOS U/L 73 62 58 -- 64 61 Results from last 7 days Lab Units 10/12/23 0335 10/11/23 1000 10/11/23 0205 10/10/23 0450 10/10/23 0220 10/09/23 0255 10/08/23 0210 WBC X10E9/L 7.3 -- 6.9 -- 6.9 9.7 8.9 HEMOGLOBIN g/dL 7.7* 7.7* 6.6* 7.2* 6.8* 7.7* 7.3* HEMATOCRIT % 22.0* 22.4* 19.1* 20.9* 21.0* 23.2* 21.4* PLATELETS X10E9/L 109* -- 108* -- 113* 110* 94* Lab Results Component Value Date IRON 46 (L) 10/10/2023 TIBC 279 10/10/2023 FERRITIN 167 10/10/2023 IRONSAT 17 (L) 10/10/2023 Results from last 7 days Lab Units 10/12/23 0335 10/11/23 0205 10/10/23 0220 10/09/23 0255 10/08/23 1356 BEDSIDE GLUCOSE mg/dL -- -- -- -- 114* GLUCOSE mg/dL 92 92 86 113* -- Results from last 7 days Lab Units 10/06/23 0215 CK TOTAL U/L 19* Results from last 7 days Lab Units 10/12/23 0355 10/11/23 0205 BNP pg/mL 322* 570* CURRENT MEDICATIONS: ampicillin-sulbactam (UNASYN) IV, 3,000 mg, intravenous, Q12H atorvastatin, 40 mg, oral, Nightly heparin (porcine), 5,000 Units, subcutaneous, Q8H LYNN magnesium oxide, 400 mg, oral, BID melatonin, 6 mg, oral, Nightly pantoprazole, 40 mg, oral, QAM AC PARoxetine, 10 mg, oral, Nightly sennosides-docusate sodium, 2 tablet, oral, Nightly sodium chloride, 10 mL, intravenous, Q96H sodium chloride, 10 mL, intravenous, Q96H sodium citrate, 2 mL, intravenous, Q96H sodium citrate, 2 mL, intravenous, Q96H ticagrelor, 90 mg, oral, Q12H [facility] PROBLEM LIST: Acute kidney injury likely related to Acute Tubular Necrosis secondary to septic shock from September of 20[address] of the abdomen and pelvis on October 04 2023 revealed bilateral nonobstructing renal stones with no evidence of hydronephrosis. From September of 2023 serum protein electrophoresis revealed monoclonal protein of 0.3 grams/deciliter, serum immunofixation was negative monoclonal bands, LUIGI and anti-GBM were negative, C3 was 136 and C4 was 35, free kappa to lambda ratio was 1.6, Septic shock Recent Proteus mirabilis urinary tract infection August 2020 History of acute kidney injury secondary to urinary retention resolved with baseline creatinine 1.1mg/dL Chronic obstructive pulmonary disease on home oxygen Type 2 diabetes mellitus Primary hypertension Obesity Obstructive sleep apnea Hyperlipidemia History of methicillin-resistant Staphylococcus aureus bacteremia in July of 2023 resulting in hospitalization. A source was never identified. He completed a 28 day course of vancomycin as an outpatient to treat the bacteremia of unknown source. History of megaloblastic anemia with folate deficiency Atherosclerotic coronary artery disease status post coronary artery bypass grafting unknown anatomy. He is said to have had a stent placed in July of 2023 in an unknown location. This was done at [facility] in [place]. Echocardiogram from July of 2023 revealed ejection fraction of 55-60%, grade 1 diastolic dysfunction, mildly reduced RV function, moderate to severe aortic regurgitation, moderate to severe aortic stenosis, trace to mild mitral regurgitation, [id number] tricuspid regurgitation. IMPRESSION: 1. Acute kidney injury secondary to Acute Tubular Necrosis in the setting of hypotensive shock. Initiated hemodialysis on October 05, 2023. Creatinine has improved overnight. Urine output is accurate. No indication for dialysis at this time 2. Hypotensive shock likely secondary to community-acquired pneumonia: Antibiotics per Critical Care service. Currently off pressors. 3. Community-acquired pneumonia with left-sided pleural effusion status post thoracentesis. 4. Moderate to severe aortic regurgitation and aortic stenosis: Cardiology is following. 5. Acute on chronic diastolic congestive heart exacerbation: Diuretics on hold because of aortic stenosis per primary service. Clinically close to euvolemic on exam. 6. Metabolic alkalosis: Likely related to volume contraction secondary to diuresis. VBG from 2021 revealed pH of 7.37, pCO2 of 56.5 and bicarbonate of 32.7. Corrected. 7. Iron deficiency anemia: IV iron was ordered. Stool occult was positive PLAN: 1. No new recommendations for today 2. No objection to removing dialysis catheter from Nephrology perspective No objection to discharge from Nephrology perspective. Discharge recommendations Do not resume lisinopril on discharge. Do not resume Actos on discharge Recommend resuming home dose of Lasix on discharge No objection to resuming metformin given that his GFR is more than 30. BNP and magnesium on October 16 Follow-up with Cardiology after discharge for aortic valve regurgitation and stenosis. Follow-up with Nephrology in 2-3 weeks after discharge. Mahesh Banerjee M.D. For questions please call: Answering Service at [phone] Or Office at [phone] This note was created with the assistance of a speech-recognition program. Although the intention is to generate a document that actually reflects the content of the visit, no guarantees can be provided that every mistake has been identified and corrected by editing. * Orville Oconnell MD - 10/12/2023 9:57 AM EDT Subjective: The patient is currently resting comfortably. He does not report chest discomfort, dyspnea or palpitations Objective Vitals: Blood pressure 126/66, heart rate 84, respiratory rate 14 Cardiovascular: S1, S2. Regular. There is a 3/6 crescendo decrescendo systolic murmur loudest at the 2nd right intercostal space, as well as a 1/6 decrescendo diastolic murmur at the 2nd right intercostal space Respiratory: Vesicular breath sound Abdomen: Soft Telemetry currently reveals sinus rhythm Labs: White blood cell count 7.3, hemoglobin 7.7, platelet count [id number]. Sodium 142, potassium 3.2,chloride 98, bicarb 34, BUN 22, creatinine 1.72. Impression 1. Septic shock which has resolved 2. Coronary artery disease. This is currently stable 3. Aortic valve stenosis 4. Aortic valve regurgitation 5. Acute kidney injury in the setting of chronic kidney disease. Creatinine continues to improve. Recommendations 1. Continue current medications 2. No additional cardiac recommendations at this time. Therefore Cardiology will sign off. Please call with further questions. Following hospital discharge the patient will follow up with his primarycardiologist. * Kylee Ramirez MD - 10/12/2023 7:51 AM EDT Images from the original note were not included. Adult ICU Progress Note Patient - [facility] Mandel Age - 73 [facility] 1950 [id number] Date of Admission - 10/05/2023 10:53 AM History of Present Illness Brian Mandel is a 73 y.o. male with a history of COPD (on home 2L O2), HTN, HLD, T2DM (09/22/23 A1c 5.5), Aortic stenosis, macrocytic anemia, CAD c/b NSTEMI in 06/2023 s/p CABG, Chronic diastolic HF on GDMT with recent admission 2/2 acute exacerbation on 09/11/23 (07/2023 TTE with LVEF 50-55%, mod-sev AR, mild- mod TR), recent MRSA bacteremia (07/2023). Of note, he has a recent history of CRSITINE. He was recently admitted in on 09/21/2023 for CRISTINE. At that time, he complained of progressively worsening frequency and dysuria. He endorsed a remote history of nephrolithiasis and was noted to have urinary retention (466 per bladder scan)/ labs notable Creatinine 1.70 BUN 28 GFR 42 lactate 3.3. Urine culture during admission was notable for Proteus mirabilis. He was discharged on hospital day 3 with cipro 500mg BID [id number] and schedules followup with urology. He presented to the ED on night of 10/04/2023 with chief complaint of shortness of breath for the last several days that he thought was secondary to his anemia. He also endorsed chronic cough worsening over the last week as well as watery diarrhea (3 times overnight) and vomiting (3 episodes). Hemoglobin was stable around 8. He had significantly elevated and uptrending creatinine (6.9 0->7.09). UA notable for moderate leukocyte esterase, trace ketonuria, calcium oxalate crystals present. BNPwas 833. Troponin's mildly elevated at 21->23. Lactate mildly elevated at 2.7. Flu, COVID, RSV negative. CT of the chest showed moderately large pleural effusion and/or pneumonia. CTA/P unremarkable. He was presumed to have community-acquired pneumonia and so was treated with azithromycin/ceftriaxone. However, he developed hypotension, was given 1 L LR bolus, requiring pressors (Levo 0.04). Given his pressor requirements, patient was admitted to ICU. Upon presentation he was hypotensive at 87/44 on Levophed 0.04. However he was had no complaints and was asymptomatic, and in no acute distress. He was A&O x4 and conversational.Given his recent history of CRISTINE and significantly elevated and uptrending creatinine, Nephrology was consulted for consideration of emergent hemodialysis. Of note, central line was attempted and failed while patient was in the ED, therefore if patient needs dialysis, will tentatively plan on IR consult for tunneled catheter. 10/06/2023: Patient was given hemodialysis for volume and solute control with good response. Blood pressures have been in the 80/40s on levophed and midrodrine. Patient notes that he is somewhat nauseous, otherwise no complaints. 10/07/2023: No acute overnight events. We will try a Lasix challenge per Nephrology, patient urinated 1.2 Ls . Doxycycline switch to Unasyn for coverage of community- acquired pneumonia. IR consulted for left thoracentesis, remove 0.5 L of fluid sent for analysis. 10/08/2023: No acute overnight events. Continue antibiotics. Patient continues to need Levophed 0.02, goal for today is wean him off of pressor support. Pleural fluid meets transudative criteria with a high cellcount. 10/09/2023: Hgb decreased to 6.8, patient did not want blood products and a repeat hgb was 7.2. Patient's bloodpressures improved after 500 mL LR bolus last night, however, required Levophed this morning. Further workup for causes of hypotension (cortisol, TSH/free T4) were within normal limits 10/10/2023: Previous UA positive, we will repeat urine culture. Cardiology consulted given concern for midodrine administration worsening aortic valvular disease. 10/11/2023. Patient had low hemoglobin at 6.6, transfuse 1 unit of blood. Placed GI consult for evaluation of GI bleed. Discontinued aspirin per Cardiology Interval History No acute overnight events. I saw and examined the patient at bedside this morning. He was satting well, hemodynamically stable, and in no acute distress. He had good urine output (2.6 L) on Lasix. 4 times bowel movements noted overnight. He denies nausea, vomiting, fever, chills, nausea, vomiting, chest pain, shortness of breath, abdominal pain. No other complaints. You satting well on 2 L nasal cannula (this is his baseline). Tentatively planning on discharging today. Of note, PT/OT previouslysaw patient on 10/09 and recommended discharging to SNF, however patient currently refuses this option would rather discharge to home with home. Objective Vitals Temp: [36.5 C (97.7 F)-36.8 C (98.3 F)] 36.8 C (98.3 F) Pulse: [76-93] 79 Resp: [16-26] 25 BP: (107-129)/(54-71) 117/60 SpO2: [89 %-100 %] 94 % O2 Device: Nasal cannula O2 Flow Rate (L/min): [2 L/min] 2 L/min Weight: Admission weight: 106.1 kg (234 lb) Wt Readings from Last 3 Encounters: 10/12/23 105.6 kg (232 lb 12.9 oz) 10/04/23 106.1 kg (234 lb) 09/21/23 106.1 kg (234 lb) Input/Output: Intake/Output Summary (Last 24 hours) at 10/12/2023 0751 Last data filed at 10/12/2023 0600 Gross per 24 hour Intake 287.5 ml Output 2625 ml Net -2337.5 ml Ventilator: Physical Exam Constitutional: General: He is not in acute distress. Appearance: He is obese. He is ill-appearing. Eyes: Extraocular Movements: Extraocular movements intact. Pupils: Pupils are equal, round, and reactive to light. Cardiovascular: Rate and Rhythm: Normal rate and regular rhythm. Pulses: Normal pulses. Heart sounds: Murmur heard. Pulmonary: Effort: No respiratory distress. Breath sounds: No stridor. No wheezing. Chest: Chest wall: No tenderness. Abdominal: Palpations: Abdomen is soft. There is no mass. Tenderness: There is no abdominal tenderness. There is no guarding. Musculoskeletal: Cervical back: No rigidity or tenderness. Right lower leg: Edema present. Left lower leg: Edema present. Lymphadenopathy: Cervical: No cervical adenopathy. Skin: General: Skin is warm and dry. Capillary Refill: Capillary refill takes less than 2 seconds. Coloration: Skin is pale. Neurological: Mental Status: He is alert and oriented to person, place, and time. Psychiatric: Behavior: Behavior normal. Thought Content: Thought content normal. Judgment: Judgment normal. Comments: Anxious Lab Results Results from last 7 days Lab Units 10/12/23 0335 10/11/23 1000 10/11/23 0205 10/10/23 0450 10/10/23 0220 WBC X10E9/L 7.3 -- 6.9 -- 6.9 HEMOGLOBIN g/dL 7.7* 7.7* 6.6* < > 6.8* HEMATOCRIT % 22.0* 22.4* 19.1* < > 21.0* PLATELETS X10E9/L 109* -- 108* -- 113* < > = values in this interval not displayed. Results from last 7 days Lab Units 10/12/23 0335 10/11/23 0205 10/10/23 0220 INR 1.1 1.2* 1.2* Results from last 7 days Lab Units 10/12/23 0335 10/11/23 1000 10/11/23 0205 10/10/23 1358 10/10/23 0220 SODIUM mmol/L 142 -- 143 -- 144 POTASSIUM mmol/L 3.2* 3.8 3.7 < > 3.8 CHLORIDE mmol/L 98 -- 101 -- 101 CO2 mmol/L 34* -- 32 -- 35* BUN mg/dL 22 -- 29* -- 35* CREATININE mg/dL 1.72* -- 2.15* -- 3.03* CALCIUM mg/dL 8.9 -- 8.9 -- 9.2 PHOSPHORUS mg/dL 2.3* -- 2.5 -- 3.4 MAGNESIUM mg/dL 1.5* -- 2.1 -- 1.6* < > = values in this interval not displayed. Results from last 7 days Lab Units 10/12/23 0335 10/11/23 0205 10/10/23 0220 ALBUMIN g/dL 3.2 3.2 3.1* TOTAL PROTEIN g/dL 6.2 5.9* 6.2 ALT U/L 9 7 7 AST U/L 16 14 11 ALK PHOS U/L 73 62 58 Results from last 7 days Lab Units 10/12/23 0335 10/11/23 0205 10/10/23 0220 GLUCOSE mg/dL 92 92 86 Lab Results Component Value Date HGBA1C 5.5 09/21/2023 Results from last 7 days Lab Units 10/12/23 0355 10/11/23 0205 BNP pg/mL 322* 570* Results from last 7 days Lab Units 10/11/23 0205 10/10/23 1358 10/10/23 0220 PROCALCITONIN ng/mL 0.25* 0.31* 0.37* Results from last 7 days Lab Units 10/10/23 0220 FERRITIN ng/mL 167 IRON ug/dL 46* TIBC-CALC ONLY DO NOT ORDER ug/dL 279 IRON SATURATION % SATURATION 17* Results from last 7 days Lab Units 10/05/23 1459 CHOLESTEROL mg/dL 136* HDL mg/dL 41 LDL (CALC) mg/dL 78 TRIGLYCERIDES mg/dL 83 Lab Results Component Value Date WBCU 440 (H) 10/09/2023 SPECIFICGRA 1.012 10/09/2023 LEUKOCYTE Large (A) 10/09/2023 NITRITEN Negative 09/21/2023 PHNUR 6.0 09/21/2023 PROTEINNUR Negative 09/21/2023 KETONESNUR Negative 09/21/2023 UROBILINOGEN <1.1 10/09/2023 BLOODHGBNU Large (A) 09/21/2023 Radiology X-ray chest 1 view Result Date: 10/11/2023 History: Pleural effusion EXAM: Chest AP portable upright COMPARISON: 10/09/2023 FINDINGS: Stable left IJ central line. Unchanged cardiac silhouette, left pleural effusion, adjacent atelectasis. No pneumothorax right lung is clear. IMPRESSION: No significant change. Finalized Dylan Wiley MD on 10/11/2023 9:39 AM Ultrasound abdomen limited with duplex Result Date: 10/10/2023 Abdominal ultrasound with Doppler, 10/10/2023. History: Dyspnea, fluid overload. Comparison: CT abdomen and pelvis 10/04/2023. Technique: Grayscale sonographic imaging of the right upper quadrant was performed. Color and spectral Doppler ultrasound was used to assess blood flow characteristics. Findings: The liver parenchyma is diffusely echogenic with decreased through-transmission. Liver yoctymge21.0 cm craniocaudal at mid clavicular line. No discrete mass. No definite intra- or extrahepatic biliary dilatation is seen. No significant abdominal ascites. Gallbladder demonstrates no wall thickening or pericholecystic fluid. The common bile duct measures 5 mm which is within the range of normal. No free fluid is demonstrated. Color and spectral Doppler ultrasound was performed to assess the hepatic vasculature. Blood flow within the main portal vein is hepatopedal with a peak systolic velocity of 27.7 cm/sec. Spectral waveforms are normal. The hepatic veins, hepatic arteries and inferiorvena cava are patent with normal spectral waveforms. Impression: * No evidence of acute vascular abnormality. * Echogenic liver parenchyma compatible with hepatocellular disease, most commonly steatosis. Finalized by Braulio De Anda MD on 10/10/2023 8:53 PM Cultures Microbiology Results Procedure Component Value Units Date/Time Urine culture [[id number]] (Abnormal) Collected: 10/10/23 1415 Specimen: Urine Updated: 10/11/23 1020 Culture 10,000 to 50,000 ORGANISMS/mL DOROTHEA ALBICANS Body fluid culture includes gram stain [[id number]] Collected: 10/07/23 1345 Specimen: Pleural Fluid Updated: 10/12/23 0653 Gram Stain Result WHITE BLOOD CELLS PRESENT NO ORGANISMS SEEN ON CONCENTRATED SMEAR Culture NO GROWTH 5 DAYS Anaerobic culture [[id number]] Collected: 10/07/23 1345 Specimen: Pleural Fluid Updated: 10/12/23 0726 Culture NO GROWTH 5 DAYS Fungal culture includes fungal smear [[id number]] Collected: 10/07/23 1345 Specimen: Pleural Fluid Updated: 10/08/23 0720 Fungal smear -- NO FUNGAL ELEMENTS SEEN ON CONCENTRATED SMEAR Culture PENDING Mrsa Pcr nasal swab [[id number]] Collected: 10/05/23 172 Specimen: Nasal Updated: 10/05/23 192 Mrsa PCR Negative Resp Pathogens Panel/SARS CoV-2 [[id number]] Collected: 10/05/23 172 Specimen: Nasopharynx Updated: 10/05/23 1935 Specimen Source NASO PHARYNX Adenovirus Detection by PCR Not Detected Coronavirus 229e Not Detected Coronavirus hku1 Not Detected Coronavirus nl63 Not Detected Coronavirus oc43 Not Detected Human metapneumovirus Not Detected Rhinovirus/enterovirus Not Detected Influenza A Not Detected Influenza B Not Detected Parainfluenza 1 Not Detected Parainfluenza 2 Not Detected Parainfluenza 3 Not Detected Parainfluenza 4 Not Detected Respiratory syncytial virus Not Detected Bordetella parapertussis Not Detected Bordetella pertussis Not Detected Chlamydophila pneumophilia Not Detected Mycoplasma pneumoniae Not Detected SARS COV 2 Not Detected Blood culture #2 [[id number]] Collected: 10/05/23 165 Specimen: Blood Updated: 10/10/23 182 Culture NO GROWTH 5 DAYS Blood culture #1 [[id number]] Collected: 10/05/23 165 Specimen: Blood Updated: 10/10/231822 Culture NO GROWTH 5 DAYS Medications Scheduled: ampicillin-sulbactam (UNASYN) IV, 3,000 mg, intravenous, Q12H atorvastatin, 40 mg, oral, Nightly heparin (porcine), 5,000 Units, subcutaneous, Q8H LYNN magnesium oxide, 400 mg, oral, BID melatonin, 6 mg, oral, Nightly pantoprazole, 40 mg, oral, QAM AC PARoxetine, 10 mg, oral, Nightly sennosides-docusate sodium, 2 tablet, oral, Nightly sodium chloride, 10 mL, intravenous, Q96H sodium chloride, 10 mL, intravenous, Q96H sodium citrate, 2 mL, intravenous, Q96H sodium citrate, 2 mL, intravenous, Q96H ticagrelor, 90 mg, oral, Q12H LYNN Infusions: dextrose 5 % in water, 100 mL/hr norepinephrine, 0.01-0.4 mcg/kg/min, Last Rate: Stopped (10/10/23 1012) sodium chloride 0.9 %, 10 mL/hr sodium chloride 0.9 %, 10 mL/hr sodium chloride 0.9 %, 10 mL/hr, Last Rate: 10 mL/hr (10/11/23 0925) As Needed: acetaminophen bisacodyL calcium gluconate calcium gluconate calcium gluconate dextrose dextrose 5 % in water dextrose 50 % in water (D50W) glucagon (human recombinant) hydrOXYzine magnesium sulfate OR magnesium sulfate ondansetron oxyCODONE phenoL polyethylene glycol potassium chloride OR potassium chloride potassium chloride in water OR potassium chloride in water simethicone sodium phosphate IV OR sodium phosphate IV - central line OR sod phos di, mono-K phos mono sodium chloride sodium chloride sodium chloride sodium chloride sodium chloride sodium chloride 0.9 % sodium chloride 0.9 % sodium chloride 0.9 % sodium citrate sodium citrate Assessment Shock of unknown etiology requiring pressors possible urinary source given acutely elevated creatinine in setting of UA positive for leukocyte esterase and calcium oxalate crystals Recurrent CRISTINE with recent hospitalization (09/21/2023) notable for Proteus mirabilis. Repeat UA positive for Leukocyte esterase, WBC 440, glucose. - follow up with UC Possible community-acquired pneumonia with CT showing moderate left pleural effusion and associatedatelectasis and/or pneumonia with consolidation as well as intermediate solid pulmonary nodule - thoracocentesis shows transudative effusion likely secondary to heart failure. CHF exacerbation Acute on chronic anemia History of COPD on home oxygen (2L) Essential hypertension Hypotension Hyperlipidemia Type 2 diabetes (non-insulin dependent last A1c 5.5) NSTEMI status post CABG 07/2023 Chronic diastolic heart failure Remote history of nephrolithiasis Plan Shock secondary to sepsis Continue Unasyn for coverage of possible community-acquired pneumonia and coverage of proteus mirabilis. Will continue Unasyn for total of 7 days total (end date 10/13) 10/04 Bcx NG@24h 10/04 Ucx negative 10/08: UA positive for leukocyte esterase and WBC, urine cultures with Dorothea Procal elevated but downtrending CRISTINE Cr on admission 7.09 with anuria Nephrology consulted. Appreciate recs: Got hemodialysis 10/04+10/05 Lasix challenge 10/06 Received LR bolus 500 mL 10/08 Hold Diamox and Bumex Creatinine improving 1.72<2.15<3 CHF exacerbation BNP 833>570 Hypotension on chronic hypotension Continue Pressors as needed for MAP goal >65 Off levophed since this morning off midodrine Cortisol and TSH WNL Acute on chronic anemia Hgb on admission 8.9 Hgb stable around 7.7 Transfused 10/10 Start epo Received IV iron for iron deficiency anemia Consult GI for down trending hemoglobin now status post 1 unit, Appreciate recommendations Last colonoscopy 2 years ago was normal per patient Given EDMUND, would benefit from EGD with biopsies to rule out H pylori and celiac disease however this can not be done while patient is on Brilinta - will need to hold brilinta 5 days prior to EGD (canbe done outpatient) PT/OT ordered Replace electrolytes as needed per ICU protocols (K>4, P>3, Mg>2) Strict I/Osm Resume home antiplatelet therapy, simvastatin, paroxetine -off ASA per cards recs Hold blood pressure medications Continue DVT ppx Discontinue aspirin Transfer to floor given good blood pressures off pressors. Patient is currently satting well at baseline oxygen requirement. Not requiring any pressors or other indications to remain in ICU. Medically stable to transfer out of ICU. Tentatively planning on discharging. Of note previously saw PT/OT which recommended discharge to SNF. However patient currently refusing SNF and saying that he wants to go home with home health. Pressor support: off levo and midodrine Lines (location & placement): PIV, Trialysis catheter in [facility] Call/PEG/Drains: Call DVT prophylaxis: SQH Diet: regular diet Code Status: Full The patient was seen and discussed with attending Dr. Anderson This progress note was completed using a voice taffy puller system. Every effort was made to ensure accuracy. However, inadvertent computerized taffy puller errors may be present. Kylee Ramirez MD Internal Medicine - PGY1 10/12/23 7:51 AM Associated attestation - Shirley Anderson MD - 10/12/2023 1:51 PM EDT Attestation signed by 1:51 PM PULMONARY/CRITICAL CARE ATTENDING ATTESTATION I have personally and independently examined the patient. I confirm the note and agree with the assessment and plan as documented by the resident. Please note there may be additional comments below. Shirley Anderson MD [facility] Pulmonary / Critical Care Pager: [phone] * Mahesh Banerjee MD - 10/11/2023 10:36 AM EDT Images from the original note were not included. Nephrology Daily Progress Note INTERVAL HISTORY: Denies any shortness breath denies any chest pain. Denies abdominal pain. Currently off pressors. Continues to be on oxygen via nasal cannula. VITAL SIGNS TREND: Vitals: 10/11/23 0711 10/11/23 0800 10/11/23 0809 10/11/23 0900 BP: 107/61 116/54 116/54 112/57 Pulse: 92 78 77 78 Resp: (!) 26 23 22 23 Temp: 36.6 C (97.9 F) 36.7 C (98.1 F) TempSrc: Oral Oral SpO2: 98% 100% 99% 99% Weight: Height: INTAKE/OUTPUT: Intake/Output Summary (Last 24 hours) at 10/11/2023 1036 Last data filed at 10/11/2023 0809 Gross per 24 hour Intake 287.5 ml Output 900 ml Net -612.5 ml I/O this shift: In: 287.5 [Blood:287.5] Out: 150 [Urine:150] WEIGHT: Last 3 Weight Readings 10/07/23 0443 10/10/23 0500 10/11/23 0500 Weight: 108.2 kg (238 lb 8.6 oz) 103.4 kg (227 lb 15.3 oz) 107.5 kg (236 lb 15.9 oz) PHYSICAL EXAM: Blood pressure 112/57, pulse 78, temperature 36.7 C (98.1 F), temperature source Oral, resp. rate 23, height 152.4 cm (5'), weight 107.5 kg (236 lb 15.9 oz), SpO2 99%. Temp: [36.6 C (97.9 F)-36.9 C (98.5 F)] 36.7 C (98.1 F) Pulse: [67-92] 78 Resp: [17-28] 23 BP: (88-127)/(50-82) 112/57 SpO2: [90 %-100 %] 99 % O2 Device: Nasal cannula O2 Flow Rate (L/min): [2 L/min] 2 L/min General appearance: alert in no apparent distress. HEENT: no JVD, no lymphadenopathy. Heart exam: normal S1-S2 Systolic ejection murmur 3/6 Lungs: clear to auscultation bilaterally Abdomen: soft, no tenderness, no guarding, positive bowel sounds Extremities: 1+ edema Vascular: adequate pulses and no carotid bruits. Musculoskeletal: no joint tenderness or swelling. LABORATORY EVALUATION: Results from last 7 days Lab Units 10/11/23 0205 10/10/23 1358 10/10/23 0220 10/09/23 1010 10/09/23 0255 10/08/23 0210 10/07/23 0219 SODIUM mmol/L 143 -- 144 -- 143 138 137 POTASSIUM mmol/L 3.7 4.0 3.8 4.2 3.8 4.0 3.9 CHLORIDE mmol/L 101 -- 101 -- 99 98 97* CO2 mmol/L 32 -- 35* -- 33* 32 30 ANION GAP mmol/L 10 -- 8 -- 11 8 10 BUN mg/dL 29* -- 35* -- 38* 33* 22 CREATININE mg/dL 2.15* -- 3.03* -- 3.49* 3.37* 2.54* CALCIUM mg/dL 8.9 -- 9.2 -- 9.4 9.4 9.4 MAGNESIUM mg/dL 2.1 -- 1.6* -- 2.0 2.4 1.8 PHOSPHORUS mg/dL 2.5 -- 3.4 -- 3.9 3.9 3.3 CALCIUM, IONIZED mg/dL 4.8 -- -- -- -- -- -- Results from last 7 days Lab Units 10/11/23 0205 10/10/23 0220 10/09/23 1220 10/09/23 0255 10/08/23 0210 10/07/23 1608 10/07/23 1345 10/07/23 0219 TOTAL PROTEIN g/dL 5.9* 6.2 -- 6.8 6.5 6.8 -- 6.8 TOTAL PROTEIN, FLUID -- -- -- -- -- -- < > -- ALBUMIN g/dL 3.2 3.1* -- 3.5 3.6 -- -- 4.0 AST U/L 14 11 -- 12 12 -- -- 14 ALT U/L 7 7 -- 8 9 -- -- 8 TOTAL BILIRUBIN mg/dL 0.8 1.0 -- 0.8 0.6 -- -- 0.6 BILIRUBIN, URINE -- -- Negative -- -- -- -- -- ALK PHOS U/L 62 58 -- 64 61 -- -- 55 < > = values in this interval not displayed. Results from last 7 days Lab Units 10/11/23 1000 10/11/23 0205 10/10/23 0450 10/10/23 0220 10/09/23 0255 10/08/23 0210 10/07/23 0219 WBC X10E9/L -- 6.9 -- 6.9 9.7 8.9 11.4* HEMOGLOBIN g/dL 7.7* 6.6* 7.2* 6.8* 7.7* 7.3* 7.2* HEMATOCRIT % 22.4* 19.1* 20.9* 21.0* 23.2* 21.4* 22.3* PLATELETS X10E9/L -- 108* -- 113* 110* 94* 120* Lab Results Component Value Date IRON 46 (L) 10/10/2023 TIBC 279 10/10/2023 FERRITIN 167 10/10/2023 IRONSAT 17 (L) 10/10/2023 Results from last 7 days Lab Units 10/11/23 0205 10/10/23 0220 10/09/23 0255 10/08/23 1356 10/08/23 0210 BEDSIDE GLUCOSE mg/dL -- -- -- 114* -- GLUCOSE mg/dL 92 86 113* -- 117* Results from last 7 days Lab Units 10/06/23 0215 CK TOTAL U/L 19* Results from last 7 days Lab Units 10/11/23 0205 10/04/23 2246 BNP pg/mL 570* 833* CURRENT MEDICATIONS: ampicillin-sulbactam (UNASYN) IV, 3,000 mg, intravenous, Q12H atorvastatin, 40 mg, oral, Nightly heparin (porcine), 5,000 Units, subcutaneous, Q8H LYNN magnesium oxide, 400 mg, oral, BID melatonin, 6 mg, oral, Nightly PARoxetine, 10 mg, oral, Nightly sennosides-docusate sodium, 2 tablet, oral, Nightly sodium chloride, 10 mL, intravenous, Q96H sodium chloride, 10 mL, intravenous, Q96H sodium citrate, 2 mL, intravenous, Q96H sodium citrate, 2 mL, intravenous, Q96H ticagrelor, 90 mg, oral, Q12H LYNN PROBLEM LIST: Acute kidney injury likely related to Acute Tubular Necrosis secondary to septic shock from September of [address] of the abdomen and pelvis on October 04 2023 revealed bilateral nonobstructing renal stones with no evidence of hydronephrosis. From September of 2023 serum protein electrophoresis revealed monoclonal protein of 0.3 grams/deciliter, serum immunofixation is pending, LUIGI and anti-GBM were negative, C3 was 136 and C4 was 35, free kappa to lambda ratio was 1.6, Septic shock Recent Proteus mirabilis urinary tract infection August 2020 History of acute kidney injury secondary to urinary retention resolved with baseline creatinine 1.1mg/dL Chronic obstructive pulmonary disease on home oxygen Type 2 diabetes mellitus Primary hypertension Obesity Obstructive sleep apnea Hyperlipidemia History of methicillin-resistant Staphylococcus aureus bacteremia in July of 2023 resulting in hospitalization. A source was never identified. He completed a 28 day course of vancomycin as an outpatient to treat the bacteremia of unknown source. History of megaloblastic anemia with folate deficiency Atherosclerotic coronary artery disease status post coronary artery bypass grafting unknown anatomy. He is said to have had a stent placed in July of 2023 in an unknown location. This was done at [facility] in [place]. Echocardiogram from July of 2023 revealed ejection fraction of 55-60%, grade 1 diastolic dysfunction, mildly reduced RV function, moderate to severe aortic regurgitation, moderate to severe aortic stenosis, trace to mild mitral regurgitation, [id number] tricuspid regurgitation. IMPRESSION: 1. Acute kidney injury secondary to Acute Tubular Necrosis in the setting of hypotensive shock. Initiated hemodialysis on October 05, 2023. Creatinine has improved overnight. Urine output is accurate. No indication for dialysis at this time 2. Hypotensive shock likely secondary to community-acquired pneumonia: Antibiotics per Critical Care service. Currently off pressors. 3. Community-acquired pneumonia with left-sided pleural effusion status post thoracentesis. 4. Moderate to severe aortic regurgitation and aortic stenosis: Cardiology is following. 5. Acute on chronic diastolic congestive heart exacerbation: Diuretics on hold because of aortic stenosis per primary service 6. Metabolic alkalosis: Likely related to volume contraction secondary to diuresis. VBG from 2021 revealed pH of 7.37, pCO2 of 56.5 and bicarbonate of 32.7. Corrected. 7. Iron deficiency anemia: IV iron was ordered. Stool occult is pending. PLAN: 1. Lasix IV x1 2. Reassess volume status in a.m. 3. Continue to follow electrolytes and replace per sliding scale as needed 4. Start IV iron for iron deficiency anemia Mahesh Banerjee M.D. For questions please call: Answering Service at [phone] Or Office at [phone] This note was created with the assistance of a speech-recognition program. Although the intention is to generate a document that actually reflects the content of the visit, no guarantees can be provided that every mistake has been identified and corrected by editing. * Orville Oconnell MD - 10/11/2023 9:32 AM EDT Subjective: The patient is currently resting comfortably. He does not report chest discomfort, dyspnea or palpitations Review of his medications reveals that midodrine has been discontinued and he is no longer on norepinephrine infusion I did review a note from from earlier today that indicates the patient will be receiving1 unit of packed red blood cells today. I reviewed the note from Dr. Barboza dated October 09 at 6:34 p.m. that indicated cardiac output 3.9. Objective Vitals: Blood pressure 112/57, heart rate 78, respiratory rate 18 Cardiovascular: S1, S2. Regular. There is a 3/6 crescendo decrescendo systolic murmur loudest at the 2nd right intercostal space as well as a 1/6 decrescendo diastolic murmur at the 2nd right intercostal space. Respiratory: Vesicular breath sound Abdomen: Soft. Telemetry currently reveals sinus rhythm Labs: White blood cell count 6.9, hemoglobin 6.6, platelet count [id number]. Sodium 143, potassium 3.7,chloride 101, bicarb 32, BUN 29, creatinine 2.15. Impression 1. Shock, most likely secondary to sepsis. Patient currently has a preserved cardiac output with noneed for pressor support. 2. Coronary artery disease. This currently stable. The patient did have a drug- eluting stent placedin June 2023. 3. Aortic valve stenosis 4. Aortic valve regurgitation 5. Acute kidney injury in the setting of chronic kidney disease. Creatinine is improving. Recommendations 1. Given anemia, at this time aspirin will be discontinued. He will be continued on ticagrelor as single anti-platelet therapy 2. Continue other current medications. * Kylee Ramirez MD - 10/11/2023 8:12 AM EDT Images from the original note were not included. Adult ICU Progress Note Patient - Brian Mandel Age - 73 y.o. - 1950 Date of Admission - 10/05/2023 10:53 AM History of Present Illness Brian Mandel is a 73 y.o. male with a history of COPD (on home 2L O2), HTN, HLD, T2DM (09/22/23 A1c 5.5), Aortic stenosis, macrocytic anemia, CAD c/b NSTEMI in 06/2023 s/p CABG, Chronic diastolic HF on GDMT with recent admission 2/2 acute exacerbation on 09/11/23 (07/2023 TTE with LVEF 50-55%, mod-sev AR, mild- mod TR), recent MRSA bacteremia (07/2023). Of note, he has a recent history of CRISTINE. He was recently admitted in on 09/21/2023 for CRISTINE. At that time, he complained of progressively worsening frequency and dysuria. He endorsed a remote history of nephrolithiasis and was noted to have urinary retention (466 per bladder scan)/ labs notable Creatinine 1.70 BUN 28 GFR 42 lactate 3.3. Urine culture during admission was notable for Proteus mirabilis. He was discharged on hospital day 3 with cipro 500mg BID [id number] and schedules followup with urology. He presented to the ED on night of 10/04/2023 with chief complaint of shortness of breath for the last several days that he thought was secondary to his anemia. He also endorsed chronic cough worsening over the last week as well as watery diarrhea (3 times overnight) and vomiting (3 episodes). Hemoglobin was stable around 8. He had significantly elevated and uptrending creatinine (6.9 0->7.09). UA notable for moderate leukocyte esterase, trace ketonuria, calcium oxalate crystals present. BNPwas 833. Troponin's mildly elevated at 21->23. Lactate mildly elevated at 2.7. Flu, COVID, RSV negative. CT of the chest showed moderately large pleural effusion and/or pneumonia. CTA/P unremarkable. He was presumed to have community-acquired pneumonia and so was treated with azithromycin/ceftriaxone. However, he developed hypotension, was given 1 L LR bolus, requiring pressors (Levo 0.04). Given his pressor requirements, patient was admitted to ICU. Upon presentation he was hypotensive at 87/44 on Levophed 0.04. However he was had no complaints and was asymptomatic, and in no acute distress. He was A&O x4 and conversational.Given his recent history of CRISTINE and significantly elevated and uptrending creatinine, Nephrology was consulted for consideration of emergent hemodialysis. Of note, central line was attempted and failed while patient was in the ED, therefore if patient needs dialysis, will tentatively plan on IR consult for tunneled catheter. 10/06/2023: Patient was given hemodialysis for volume and solute control with good response. Blood pressures have been in the 80/40s on levophed and midrodrine. Patient notes that he is somewhat nauseous, otherwise no complaints. 10/07/2023: No acute overnight events. We will try a Lasix challenge per Nephrology, patient urinated 1.2 Ls . Doxycycline switch to Unasyn for coverage of community- acquired pneumonia. IR consulted for left thoracentesis, remove 0.5 L of fluid sent for analysis. 10/08/2023: No acute overnight events. Continue antibiotics. Patient continues to need Levophed 0.02, goal for today is wean him off of pressor support. Pleural fluid meets transudative criteria with a high cellcount. 10/09/2023: Hgb decreased to 6.8, patient did not want blood products and a repeat hgb was 7.2. Patient's bloodpressures improved after 500 mL LR bolus last night, however, required Levophed this morning. Further workup for causes of hypotension (cortisol, TSH/free T4) were within normal limits 10/10/2023: Previous UA positive, we will repeat urine culture. Cardiology consulted given concern for midodrine administration worsening aortic valvular disease. 10/11/2023. Patient had low hemoglobin at 6.6, transfuse 1 unit of blood. Placed GI consult for evaluation of GI bleed. Discontinued aspirin per Cardiology Interval History Patient was seen and examined at bedside. Overnight hemoglobin was 6.6, patient eventually consented to 1 unit of RBCs. This morning the patient reports sleeping well, no nausea, vomiting, chills, fever, abdominal pain, shortness of breath, chest pain, or diarrhea. Patient has had 2 bowel movementsyesterday. Abdominal ultrasound yesterday of hepatic veins implied euvolemia. Cardiology consulted discontinued midodrine and aspirin. Patient has been off pressors for several hours. Objective Vitals Temp: [36.6 C (97.9 F)-36.9 C (98.5 F)] 36.6 C (97.9 F) Pulse: [67-95] 92 Resp: [17-28] 26 BP: (88-127)/(45-82) 107/61 SpO2: [90 %-100 %] 98 % O2 Device: Nasal cannula O2 Flow Rate (L/min): [2 L/min] 2 L/min Weight: Admission weight: 106.1 kg (234 lb) Wt Readings from Last 3 Encounters: 10/11/23 107.5 kg (236 lb 15.9 oz) 10/04/23 106.1 kg (234 lb) 09/21/23 106.1 kg (234 lb) Input/Output: Intake/Output Summary (Last 24 hours) at 10/11/2023 0812 Last data filed at 10/11/2023 0600 Gross per 24 hour Intake 103.72 ml Output 900 ml Net -796.28 ml Ventilator: Physical Exam Constitutional: General: He is not in acute distress. Appearance: He is obese. He is ill-appearing. Eyes: Extraocular Movements: Extraocular movements intact. Pupils: Pupils are equal, round, and reactive to light. Cardiovascular: Rate and Rhythm: Normal rate and regular rhythm. Pulses: Normal pulses. Heart sounds: Murmur heard. Pulmonary: Effort: No respiratory distress. Breath sounds: No stridor. No wheezing. Chest: Chest wall: No tenderness. Abdominal: Palpations: Abdomen is soft. There is no mass. Tenderness: There is no abdominal tenderness. There is no guarding. Musculoskeletal: Cervical back: No rigidity or tenderness. Right lower leg: Edema present. Left lower leg: Edema present. Lymphadenopathy: Cervical: No cervical adenopathy. Skin: General: Skin is warm and dry. Capillary Refill: Capillary refill takes less than 2 seconds. Coloration: Skin is pale. Neurological: Mental Status: He is alert and oriented to person, place, and time. Psychiatric: Behavior: Behavior normal. Thought Content: Thought content normal. Judgment: Judgment normal. Comments: Anxious Lab Results Results from last 7 days Lab Units 10/11/23 0205 10/10/23 0450 10/10/23 0220 10/09/23 0255 WBC X10E9/L 6.9 -- 6.9 9.7 HEMOGLOBIN g/dL 6.6* 7.2* 6.8* 7.7* HEMATOCRIT % 19.1* 20.9* 21.0* 23.2* PLATELETS X10E9/L 108* -- 113* 110* Results from last 7 days Lab Units 10/11/23 0205 10/10/23 0220 10/09/23 0255 10/05/23 1459 10/05/23 0603 10/04/23 2246 APTT sec -- -- -- -- 32 33 INR 1.2* 1.2* 1.1 < > 1.1 1.1 < > = values in this interval not displayed. Results from last 7 days Lab Units 10/11/23 0205 10/10/23 1358 10/10/23 0220 10/09/23 1010 10/09/23 0255 SODIUM mmol/L 143 -- 144 -- 143 POTASSIUM mmol/L 3.7 4.0 3.8 < > 3.8 CHLORIDE mmol/L 101 -- 101 -- 99 CO2 mmol/L 32 -- 35* -- 33* BUN mg/dL 29* -- 35* -- 38* CREATININE mg/dL 2.15* -- 3.03* -- 3.49* CALCIUM mg/dL 8.9 -- 9.2 -- 9.4 PHOSPHORUS mg/dL 2.5 -- 3.4 -- 3.9 MAGNESIUM mg/dL 2.1 -- 1.6* -- 2.0 < > = values in this interval not displayed. Results from last 7 days Lab Units 10/11/2320410/10/2321910/09/23 0255 ALBUMIN g/dL 3.2 3.1* 3.5 TOTAL PROTEIN g/dL 5.9* 6.2 6.8 ALT U/L 7 7 8 AST U/L 14 11 12 ALK PHOS U/L 62 58 64 Results from last 7 days Lab Units 10/11/2320410/10/2321910/09/23 0255 GLUCOSE mg/dL 92 86 113* Lab Results Component Value Date HGBA1C 5.5 09/21/2023 Results from last 7 days Lab Units 10/11/23 02010/04/23 2246 BNP pg/mL 570* 833* D DIMER ng/mL DDU -- 339* Results from last 7 days Lab Units 10/11/23 0205 10/10/23 1358 10/10/23 0220 10/05/23 1459 10/05/23 0306 LACTIC ACID mmol/L -- -- -- -- 2.1* PROCALCITONIN ng/mL 0.25* 0.31* 0.37* < > -- < > = values in this interval not displayed. Results from last 7 days Lab Units 10/10/23 022 FERRITIN ng/mL 167 IRON ug/dL 46* TIBC-CALC ONLY DO NOT ORDER ug/dL 279 IRON SATURATION % SATURATION 17* Results from last 7 days Lab Units 10/05/23 1459 CHOLESTEROL mg/dL 136* HDL mg/dL 41 LDL (CALC) mg/dL 78 TRIGLYCERIDES mg/dL 83 Lab Results Component Value Date WBCU 440 (H) 10/09/2023 SPECIFICGRA 1.012 10/09/2023 LEUKOCYTE Large (A) 10/09/2023 NITRITEN Negative 09/21/2023 PHNUR 6.0 09/21/2023 PROTEINNUR Negative 09/21/2023 KETONESNUR Negative 09/21/2023 UROBILINOGEN <1.1 10/09/2023 BLOODHGBNU Large (A) 09/21/2023 Radiology Ultrasound abdomen limited with duplex Result Date: 10/10/2023 Abdominal ultrasound with Doppler, 10/10/2023. History: Dyspnea, fluid overload. Comparison: CT abdomen and pelvis 10/04/2023. Technique: Grayscale sonographic imaging of the right upper quadrant was performed. Color and spectral Doppler ultrasound was used to assess blood flow characteristics. Findings: The liver parenchyma is diffusely echogenic with decreased through-transmission. Liver bdyhmxjd94.0 cm craniocaudal at mid clavicular line. No discrete mass. No definite intra- or extrahepatic biliary dilatation is seen. No significant abdominal ascites. Gallbladder demonstrates no wall thickening or pericholecystic fluid. The common bile duct measures 5 mm which is within the range of normal. No free fluid is demonstrated. Color and spectral Doppler ultrasound was performed to assess the hepatic vasculature. Blood flow within the main portal vein is hepatopedal with a peak systolic velocity of 27.7 cm/sec. Spectral waveforms are normal. The hepatic veins, hepatic arteries and inferiorvena cava are patent with normal spectral waveforms. Impression: * No evidence of acute vascular abnormality. * Echogenic liver parenchyma compatible with hepatocellular disease, most commonly steatosis. Finalized by Braulio De Anda MD on 10/10/2023 8:53 PM X-ray chest 1 view Result Date: 10/09/2023 CHEST 1 VIEW HISTORY: Postthoracentesis COMPARISON: 10/08/2023 FINDINGS: Stable left-sided central venous catheter and sternotomy wires. Unchanged small left pleural effusion with adjacent atelectasis. No pneumothorax. Right lung is clear. IMPRESSION: No significant interval change. Finalized by Edilberto Willoughby MD on 10/09/2023 8:42 AM Cultures Microbiology Results Procedure Component Value Units Date/Time Urine culture [[id number]] Collected: 10/10/23 1415 Specimen: Urine Updated: 10/10/23 1532 Body fluid culture includes gram stain [[id number]] Collected: 10/07/23 1345 Specimen: Pleural Fluid Updated: 10/11/23 0631 Gram Stain Result WHITE BLOOD CELLS PRESENT NO ORGANISMS SEEN ON CONCENTRATED SMEAR Culture NO GROWTH 4 DAYS Anaerobic culture [[id number]] Collected: 10/07/23 1345 Specimen: Pleural Fluid Updated: 10/10/23 1241 Culture NO GROWTH 3 DAYS Fungal culture includes fungal smear [[id number]] Collected: 10/07/23 1345 Specimen: Pleural Fluid Updated: 10/08/23 0720 Fungal smear -- NO FUNGAL ELEMENTS SEEN ON CONCENTRATED SMEAR Culture PENDING Mrsa Pcr nasal swab [[id number]] Collected: 10/05/23 1723 Specimen: Nasal Updated: 10/05/231926 Mrsa PCR Negative Resp Pathogens Panel/SARS CoV-2 [[id number]] Collected: 10/05/23 172 Specimen: Nasopharynx Updated: 10/05/23 193 Specimen Source NASO PHARYNX Adenovirus Detection by PCR Not Detected Coronavirus 229e Not Detected Coronavirus hku1 Not Detected Coronavirus nl63 Not Detected Coronavirus oc43 Not Detected Human metapneumovirus Not Detected Rhinovirus/enterovirus Not Detected Influenza A Not Detected Influenza B Not Detected Parainfluenza 1 Not Detected Parainfluenza 2 Not Detected Parainfluenza 3 Not Detected Parainfluenza 4 Not Detected Respiratory syncytial virus Not Detected Bordetella parapertussis Not Detected Bordetella pertussis Not Detected Chlamydophila pneumophilia Not Detected Mycoplasma pneumoniae Not Detected SARS COV 2 Not Detected Blood culture #2 [[id number]] Collected: 10/05/23 1653 Specimen: Blood Updated: 10/10/23 1823 Culture NO GROWTH 5 DAYS Blood culture #1 [[id number]] Collected: 10/05/23 1652 Specimen: Blood Updated: 10/10/23 1823 Culture NO GROWTH 5 DAYS Urine culture [[id number]] Collected: 10/05/23 0236 Specimen: Urine from Call Catheter Specimen Updated: 10/06/23 0824 Specimen Notes URINE RECEIVED WITHOUT PRESERVATIVE Culture NO GROWTH AT <1000 CFU/mL SARS/FLU A+B/RSV by NAAT/Molecular (M4RT Collection Tube) [[id number]] Collected: 10/04/23 2307 Specimen: Nasopharynx Updated: 10/05/23 0024 FLU A PCR Negative FLU B PCR Negative RSV by PCR Negative SARS CoV 2 BY PCR Not Detected Blood culture [[id number]] Collected: 10/04/232256 Specimen: Blood Updated: 10/10/23 1019 Culture NO GROWTH 5 DAYS Blood culture [[id number]] Collected: 10/04/23 2247 Specimen: Blood Updated: 10/10/23 1023 Culture NO GROWTH 5 DAYS Medications Scheduled: ampicillin-sulbactam (UNASYN) IV, 3,000 mg, intravenous, Q12H aspirin, 81 mg, oral, Daily atorvastatin, 40 mg, oral, Nightly heparin (porcine), 5,000 Units, subcutaneous, Q8H LYNN magnesium oxide, 400 mg, oral, BID melatonin, 6 mg, oral, Nightly PARoxetine, 10 mg, oral, Nightly sennosides-docusate sodium, 2 tablet, oral, Nightly sodium chloride, 10 mL, intravenous, Q96H sodium chloride, 10 mL, intravenous, Q96H sodium citrate, 2 mL, intravenous, Q96H sodium citrate, 2 mL, intravenous, Q96H ticagrelor, 90 mg, oral, Q12H LYNN Infusions: dextrose 5 % in water, 100 mL/hr norepinephrine, 0.01-0.4 mcg/kg/min, Last Rate: Stopped (10/10/23 1012) sodium chloride 0.9 %, 10 mL/hr sodium chloride 0.9 %, 10 mL/hr sodium chloride 0.9 %, 10 mL/hr, Last Rate: 10 mL/hr (10/10/23 1013) sodium chloride 0.9 %, 3 mL/hr, Last Rate: 3 mL/hr (10/10/232007) sodium chloride 0.9 %, 20 mL/hr As Needed: acetaminophen acetaZOLAMIDE bisacodyL bumetanide calcium gluconate calcium gluconate calcium gluconate dextrose dextrose 5 % in water dextrose 50 % in water (D50W) glucagon (human recombinant) hydrOXYzine magnesium sulfate OR magnesium sulfate ondansetron oxyCODONE phenoL polyethylene glycol potassium chloride OR potassium chloride potassium chloride in water OR potassium chloride in water simethicone sodium phosphate IV OR sodium phosphate IV - central line OR sod phos di, mono-K phos mono sodium chloride sodium chloride sodium chloride sodium chloride sodium chloride sodium chloride 0.9 % sodium chloride 0.9 % sodium chloride 0.9 % sodium chloride 0.9 % sodium citrate sodium citrate Assessment Shock of unknown etiology requiring pressors possible urinary source given acutely elevated creatinine in setting of UA positive for leukocyte esterase and calcium oxalate crystals Recurrent CRISTINE with recent hospitalization (09/21/2023) notable for Proteus mirabilis. Repeat UA positive for Leukocyte esterase, WBC 440, glucose. - follow up with UC Possible community-acquired pneumonia with CT showing moderate left pleural effusion and associatedatelectasis and/or pneumonia with consolidation as well as intermediate solid pulmonary nodule - thoracocentesis shows transudative effusion likely secondary to heart failure. CHF exacerbation Acute on chronic anemia History of COPD on home oxygen (2L) Essential hypertension Hypotension Hyperlipidemia Type 2 diabetes (non-insulin dependent last A1c 5.5) NSTEMI status post CABG 07/2023 Chronic diastolic heart failure Remote history of nephrolithiasis Plan Shock secondary to sepsis Continue Unasyn for coverage of possible community-acquired pneumonia and coverage of proteus mirabilis. Will continue Unasyn for total of 7 days (on day 6 currently) 10/04 Bcx NG@24h 10/04 Ucx negative 10/08: UA positive for leukocyte esterase and WBC, urine cultures pending Procal .25<.31 CRISTINE Cr on admission 7.09 with anuria Nephrology consulted. Appreciate recs: Got hemodialysis 10/04+10/05 Lasix challenge 10/06 Received LR bolus 500 mL 10/08 Hold Diamox and Bumex Creatinine improving 2.15<3 CHF exacerbation BNP [id number] Hypotension on chronic hypotension Continue Pressors as needed for MAP goal >65 Off levophed since this morning Discontinue midodrine Cortisol and TSH WNL Will touch base with Nephrology regarding thoughts on volume status/diuresis as a contributor to hypotension Acute on chronic anemia Hgb on admission 8.9 Hgb 6.6<7.2<6.8<7.7 Transfused this morning, hgb is now 7.7 Start epo Consult GI for down trending hemoglobin now status post 1 unit, Appreciate recommendations Last colonoscopy 2 years ago was normal per patient PT/OT ordered Replace electrolytes as needed per ICU protocols (K>4, P>3, Mg>2) Strict I/Osm Resume home antiplatelet therapy, simvastatin, paroxetine - DC ASA per cards recs Hold blood pressure medications Continue DVT ppx Discontinue aspirin Transfer to floor given good blood pressures off pressors. Patient is currently satting well at baseline oxygen requirement. Not requiring any pressors or other indications to remain in ICU. Medically stable to transfer out of ICU Pressor support: off levo Lines (location & placement): PIV, Trialysis catheter in [facility] Call/PEG/Drains: Call DVT prophylaxis: SQH Diet: regular diet Code Status: Full The patient was seen and discussed with attending Dr. Anderson This progress note was completed using a voice taffy puller system. Every effort was made to ensure accuracy. However, inadvertent computerized taffy puller errors may be present. Note has been documented by Denise Emery on 10/11/2023 Attestation: I, Kylee Ramirez MD, was physically present with the participating medical student. I verified the medical student's documentation and included any necessary updates within the note. Kylee Ramirez MD Internal Medicine - PGY1 10/11/23 12:04 PM Associated attestation - Shirley Anderson MD - 10/11/2023 12:09 PM EDT Attestation signed by 12:07 PM PULMONARY/CRITICAL CARE ATTENDING ATTESTATION I have personally and independently examined the patient. I confirm the note and agree with the assessment and plan as documented by the resident. Please note there may be additional comments below. ADDITIONAL COMMENTS: Shock, requiring vasopressors - resolved. Patient is off pressors. Urinary tract infection Possible community-acquired pneumonia Left-sided pleural effusion status post thoracentesis. Pleural fluid characteristics most consistent with transudative effusion Chronic heart failure with preserved ejection fraction Acute kidney injury Continue to trend H/H, transfuse as necessary Discontinue aspirin per Cardiology recommendations Gastroenterology evaluation Volume management per Nephrology Transfer out of ICU Shirley Anderson MD [facility] Pul[facility] / Critical Care Pager: [phone] * Mahesh Banerjee MD - 10/10/2023 1:31 PM EDT Images from the original note were not included. Nephrology Daily Progress Note INTERVAL HISTORY: Denies any shortness breath denies any chest pain. Denies abdominal pain. Continues to be on Levophed. Continues to be on oxygen via nasal cannula. VITAL SIGNS TREND: Vitals: 10/10/23 1100 10/10/23 1115 10/10/23 1200 10/10/23 1300 BP: 105/66 112/51 120/63 Pulse: 89 84 78 77 Resp: 23 (!) 28 21 24 Temp: 36.6 C (97.9 F) TempSrc: Oral SpO2: 94% 92% 96% 95% Weight: Height: INTAKE/OUTPUT: Intake/Output Summary (Last 24 hours) at 10/10/2023 1331 Last data filed at 10/10/2023 1013 Gross per 24 hour Intake 1196.89 ml Output 1350 ml Net -153.11 ml I/O this shift: In: 103.7 [I.V.:39; IV Piggyback:64.7] Out: 100 [Urine:100] WEIGHT: Last 3 Weight Readings 10/05/23 1423 10/07/23 0443 10/10/23 0500 Weight: 104.9 kg (231 lb 4.2 oz) 108.2 kg (238 lb 8.6 oz) 103.4 kg (227 lb 15.3 oz) PHYSICAL EXAM: Blood pressure 120/63, pulse 77, temperature 36.6 C (97.9 F), temperature source Oral, resp. rate 24, height 152.4 cm (5'), weight 103.4 kg (227 lb 15.3 oz), SpO2 95%. Temp: [36.5 C (97.7 F)-36.8 C (98.2 F)] 36.6 C (97.9 F) Pulse: [72-95] 77 Resp: [18-28] 24 BP: (72-146)/(29-87) 120/63 SpO2: [90 %-100 %] 95 % O2 Device: Nasal cannula O2 Flow Rate (L/min): [2 L/min] 2 L/min General appearance: alert in no apparent distress. HEENT: no JVD, no lymphadenopathy. Heart exam: normal S1-S2 Systolic ejection murmur 3/6 Lungs: clear to auscultation bilaterally Abdomen: soft, no tenderness, no guarding, positive bowel sounds Extremities: 1 to 2+ edema Vascular: adequate pulses and no carotid bruits. Musculoskeletal: no joint tenderness or swelling. LABORATORY EVALUATION: Results from last 7 days Lab Units 10/10/23 0220 10/09/23 1010 10/09/23 0255 10/08/23 0210 10/07/23 0219 10/06/23 1148 10/06/23 0215 SODIUM mmol/L 144 -- 143 138 137 -- 135 POTASSIUM mmol/L 3.8 4.2 3.8 4.0 3.9 < > 3.8 CHLORIDE mmol/L 101 -- 99 98 97* -- 95* CO2 mmol/L 35* -- 33* 32 30 -- 28 ANION GAP mmol/L 8 -- 11 8 10 -- 12 BUN mg/dL 35* -- 38* 33* 22 -- 28* CREATININE mg/dL 3.03* -- 3.49* 3.37* 2.54* -- 3.66* CALCIUM mg/dL 9.2 -- 9.4 9.4 9.4 -- 9.0 MAGNESIUM mg/dL 1.6* -- 2.0 2.4 1.8 -- 1.9 PHOSPHORUS mg/dL 3.4 -- 3.9 3.9 3.3 -- 4.5 < > = values in this interval not displayed. Results from last 7 days Lab Units 10/10/23 0220 10/09/23 1220 10/09/23 0255 10/08/23 0210 10/07/23 1608 10/07/23 1345 10/07/23 0219 10/06/23 0215 TOTAL PROTEIN g/dL 6.2 -- 6.8 6.5 6.8 -- 6.8 6.9 TOTAL PROTEIN, FLUID g/dL -- -- -- -- -- 3.4 -- -- ALBUMIN g/dL 3.1* -- 3.5 3.6 -- -- 4.0 3.3 AST U/L 11 -- 12 12 -- -- 14 14 ALT U/L 7 -- 8 9 -- -- 8 9 TOTAL BILIRUBIN mg/dL 1.0 -- 0.8 0.6 -- -- 0.6 0.4 BILIRUBIN, URINE -- Negative -- -- -- -- -- -- ALK PHOS U/L 58 -- 64 61 -- -- 55 69 Results from last 7 days Lab Units 10/10/23 0450 10/10/23 0220 10/09/23 0255 10/08/23 0210 10/07/23 0219 10/06/23 0215 WBC X10E9/L -- 6.9 9.7 8.9 11.4* 16.5* HEMOGLOBIN g/dL 7.2* 6.8* 7.7* 7.3* 7.2* 8.8* HEMATOCRIT % 20.9* 21.0* 23.2* 21.4* 22.3* 25.8* PLATELETS X10E9/L -- 113* 110* 94* 120* 184 Lab Results Component Value Date IRON 117 09/21/2023 TIBC 462 (H) 09/21/2023 FERRITIN 114 09/23/2023 IRONSAT 25 09/21/2023 Results from last 7 days Lab Units 10/10/23 0220 10/09/23 0255 10/08/23 1356 10/08/23 0210 10/07/23 021 BEDSIDE GLUCOSE mg/dL -- -- 114* -- -- GLUCOSE mg/dL 86 113* -- 117* 130* Results from last 7 days Lab Units 10/06/23 021 CK TOTAL U/L 19* Results from last 7 days Lab Units 10/04/23 2246 BNP pg/mL 833* CURRENT MEDICATIONS: ampicillin-sulbactam (UNASYN) IV, 3,000 mg, intravenous, Q12H aspirin, 81 mg, oral, Daily atorvastatin, 40 mg, oral, Nightly heparin (porcine), 5,000 Units, subcutaneous, Q8H LYNN melatonin, 6 mg, oral, Nightly midodrine, 15 mg, oral, TID PARoxetine, 10 mg, oral, Nightly sennosides-docusate sodium, 2 tablet, oral, Nightly sodium chloride, 10 mL, intravenous, Q96H sodium chloride, 10 mL, intravenous, Q96H sodium citrate, 2 mL, intravenous, Q96H sodium citrate, 2 mL, intravenous, Q96H ticagrelor, 90 mg, oral, Q12H LYNN PROBLEM LIST: Acute kidney injury likely related to Acute Tubular Necrosis secondary to septic shock from September of 20[address] of the abdomen and pelvis on October 04 2023 revealed bilateral nonobstructing renal stones with no evidence of hydronephrosis. From September of 2023 serum protein electrophoresis revealed monoclonal protein of 0.3 grams/deciliter, serum immunofixation is pending, LUIGI and anti-GBM were negative, C3 was 136 and C4 was 35, free kappa to lambda ratio was 1.6, Septic shock Recent Proteus mirabilis urinary tract infection August 2020 History of acute kidney injury secondary to urinary retention resolved with baseline creatinine 1.1mg/dL Chronic obstructive pulmonary disease on home oxygen Type 2 diabetes mellitus Primary hypertension Obesity Obstructive sleep apnea Hyperlipidemia History of methicillin-resistant Staphylococcus aureus bacteremia in July of 2023 resulting in hospitalization. A source was never identified. He completed a 28 day course of vancomycin as an outpatient to treat the bacteremia of unknown source. History of megaloblastic anemia with folate deficiency Atherosclerotic coronary artery disease status post coronary artery bypass grafting unknown anatomy. He is said to have had a stent placed in July of 2023 in an unknown location. This was done at [facility] in [place]. Echocardiogram from July of 2023 revealed ejection fraction of 55-60%, grade 1 diastolic dysfunction, mildly reduced RV function, moderate to severe aortic regurgitation, moderate to severe aortic stenosis, trace to mild mitral regurgitation, [id number] tricuspid regurgitation. IMPRESSION: 1. Acute kidney injury secondary to Acute Tubular Necrosis in the setting of hypotensive shock. Initiated hemodialysis on October 05, 2023. Creatinine has improved overnight. Urine output is acceptable. No indication for dialysis at this time 2. Hypotensive shock likely secondary to community-acquired pneumonia: On pressors. On antibiotics per Critical Care service 3. Community-acquired pneumonia with left-sided pleural effusion status post thoracentesis. 4. Moderate to severe aortic regurgitation and aortic stenosis: will need cardiology evaluation at some point. 5. Acute on chronic diastolic congestive heart exacerbation: Gentle diuresis with p.o. Bumex was started. 6. Metabolic alkalosis: Likely related to volume contraction secondary to diuresis. VBG is pending.Diamox was added awaiting VBG results 7. Anemia: Iron studies are pending PLAN: 1. Increase ProAmatine to help wean off Levophed. 2. Start gentle diuresis with p.o. Bumex 3. Continue to follow electrolytes and replace per sliding scale as needed 4. Follow BNP 5. Reassess blood pressure in a.m. 6. Reassess diuretic regimen in a.m. 7. Add magnesium oxide 8. Anemia workup 9. Check VBG for evaluation of metabolic alkalosis 10. Start Diamox awaiting VBG results Mahesh Banerjee M.D. For questions please call: Answering Service at [phone] Or Office at [phone] This note was created with the assistance of a speech-recognition program. Although the intention is to generate a document that actually reflects the content of the visit, no guarantees can be provided that every mistake has been identified and corrected by editing. * Kylee Ramirez MD - 10/10/2023 7:40 AM EDT Images from the original note were not included. Adult ICU Progress Note Patient - [facility] Mandel Age - 73 [facility] 1950 [id number] Date of Admission - 10/05/2023 10:53 AM History of Present Illness Brian Mandel is a 73 y.o. male with a history of COPD (on home 2L O2), HTN, HLD, T2DM (09/22/23 A1c 5.5), Aortic stenosis, macrocytic anemia, CAD c/b NSTEMI in 06/2023 s/p CABG, Chronic diastolic HF on GDMT with recent admission 2/2 acute exacerbation on 09/11/23 (07/2023 TTE with LVEF 50-55%, mod-sev AR, mild- mod TR), recent MRSA bacteremia (07/2023). Of note, he has a recent history of CRISTINE. He was recently admitted in on 09/21/2023 for CRISTINE. At that time, he complained of progressively worsening frequency and dysuria. He endorsed a remote history of nephrolithiasis and was noted to have urinary retention (466 per bladder scan)/ labs notable Creatinine 1.70 BUN 28 GFR 42 lactate 3.3. Urine culture during admission was notable for Proteus mirabilis. He was discharged on hospital day 3 with cipro 500mg BID [id number] and schedules followup with urology. He presented to the ED on night of 10/04/2023 with chief complaint of shortness of breath for the last several days that he thought was secondary to his anemia. He also endorsed chronic cough worsening over the last week as well as watery diarrhea (3 times overnight) and vomiting (3 episodes). Hemoglobin was stable around 8. He had significantly elevated and uptrending creatinine (6.9 0->7.09). UA notable for moderate leukocyte esterase, trace ketonuria, calcium oxalate crystals present. BNPwas 833. Troponin's mildly elevated at 21->23. Lactate mildly elevated at 2.7. Flu, COVID, RSV negative. CT of the chest showed moderately large pleural effusion and/or pneumonia. CTA/P unremarkable. He was presumed to have community-acquired pneumonia and so was treated with azithromycin/ceftriaxone. However, he developed hypotension, was given 1 L LR bolus, requiring pressors (Levo 0.04). Given his pressor requirements, patient was admitted to ICU. Upon presentation he was hypotensive at 87/44 on Levophed 0.04. However he was had no complaints and was asymptomatic, and in no acute distress. He was A&O x4 and conversational.Given his recent history of CRISTINE and significantly elevated and uptrending creatinine, Nephrology was consulted for consideration of emergent hemodialysis. Of note, central line was attempted and failed while patient was in the ED, therefore if patient needs dialysis, will tentatively plan on IR consult for tunneled catheter. 10/06/2023: Patient was given hemodialysis for volume and solute control with good response. Blood pressures have been in the 80/40s on levophed and midrodrine. Patient notes that he is somewhat nauseous, otherwise no complaints. 10/07/2023: No acute overnight events. We will try a Lasix challenge per Nephrology, patient urinated 1.2 Ls . Doxycycline switch to Unasyn for coverage of community- acquired pneumonia. IR consulted for left thoracentesis, remove 0.5 L of fluid sent for analysis. 10/08/2023: No acute overnight events. Continue antibiotics. Patient continues to need Levophed 0.02, goal for today is wean him off of pressor support. Pleural fluid meets transudative criteria with a high cellcount. 10/09/2023: Hgb decreased to 6.8, patient did not want blood products and a repeat hgb was 7.2. Patient's bloodpressures improved after 500 mL LR bolus last night, however, required Levophed this morning. Further workup for causes of hypotension (cortisol, TSH/free T4) were within normal limits 10/10/2023: Previous UA positive, we will repeat urine culture. Cardiology consulted given concern for midodrine administration worsening aortic valvular disease. Interval History Patient was seen and examined at bedside. Overnight hemoglobin was 6.8, patient did not want blood products, repeat hemoglobin was 7.2. This morning the patient reports sleeping well, no nausea, vomiting, chills, fever, abdominal pain, shortness of breath, chest pain, or diarrhea. Patient had a bowel movement this morning. CVP 9-10, indicating euvolemia. Cardiology consulted given concern for midodrine administration worsening aortic valvular disease. Of note, urinalysis from yesterday was positive for many leukocyte esterase. Upon interview, patient endorses slight dysuria as well as frequency, denies urgency. However this is confounded given recent history of Call catheter placement as well as diuretic usage. Objective Vitals Temp: [36.5 C (97.7 F)-36.8 C (98.2 F)] 36.8 C (98.2 F) Pulse: [72-86] 83 Resp: [18-26] 23 BP: (72-146)/(29-87) 121/60 SpO2: [90 %-100 %] 99 % O2 Device: Nasal cannula O2 Flow Rate (L/min): [2 L/min] 2 L/min Weight: Admission weight: 106.1 kg (234 lb) Wt Readings from Last 3 Encounters: 10/10/23 103.4 kg (227 lb 15.3 oz) 10/04/23 106.1 kg (234 lb) 09/21/23 106.1 kg (234 lb) Input/Output: Intake/Output Summary (Last 24 hours) at 10/10/2023 0740 Last data filed at 10/10/2023 0623 Gross per 24 hour Intake 1093.17 ml Output 1925 ml Net -831.83 ml Ventilator: Physical Exam Constitutional: General: He is not in acute distress. Appearance: He is obese. He is ill-appearing. Eyes: Extraocular Movements: Extraocular movements intact. Pupils: Pupils are equal, round, and reactive to light. Cardiovascular: Rate and Rhythm: Normal rate and regular rhythm. Pulses: Normal pulses. Heart sounds: Murmur heard. Pulmonary: Effort: No respiratory distress. Breath sounds: No stridor. No wheezing. Chest: Chest wall: No tenderness. Abdominal: Palpations: Abdomen is soft. There is no mass. Tenderness: There is no abdominal tenderness. There is no guarding. Musculoskeletal: Cervical back: No rigidity or tenderness. Right lower leg: Edema present. Left lower leg: Edema present. Lymphadenopathy: Cervical: No cervical adenopathy. Skin: General: Skin is warm and dry. Capillary Refill: Capillary refill takes less than 2 seconds. Coloration: Skin is pale. Neurological: Mental Status: He is alert and oriented to person, place, and time. Psychiatric: Behavior: Behavior normal. Thought Content: Thought content normal. Judgment: Judgment normal. Comments: Anxious due to dog being home alone Lab Results Results from last 7 days Lab Units 10/10/23 0450 10/10/23 0220 10/09/23 0255 10/08/23 0210 WBC X10E9/L -- 6.9 9.7 8.9 HEMOGLOBIN g/dL 7.2* 6.8* 7.7* 7.3* HEMATOCRIT % 20.9* 21.0* 23.2* 21.4* PLATELETS X10E9/L -- 113* 110* 94* Results from last 7 days Lab Units 10/10/23 0220 10/09/23 0255 10/08/23 0210 10/05/23 1459 10/05/23 0603 10/04/23 2246 APTT sec -- -- -- -- 32 33 INR 1.2* 1.1 1.0 < > 1.1 1.1 < > = values in this interval not displayed. Results from last 7 days Lab Units 10/10/23 0220 10/09/23 1010 10/09/23 0255 10/08/23 0210 SODIUM mmol/L 144 -- 143 138 POTASSIUM mmol/L 3.8 4.2 3.8 4.0 CHLORIDE mmol/L 101 -- 99 98 CO2 mmol/L 35* -- 33* 32 BUN mg/dL 35* -- 38* 33* CREATININE mg/dL 3.03* -- 3.49* 3.37* CALCIUM mg/dL 9.2 -- 9.4 9.4 PHOSPHORUS mg/dL 3.4 -- 3.9 3.9 MAGNESIUM mg/dL 1.6* -- 2.0 2.4 Results from last 7 days Lab Units 10/10/23 0220 10/09/23 0255 10/08/23 0210 ALBUMIN g/dL 3.1* 3.5 3.6 TOTAL PROTEIN g/dL 6.2 6.8 6.5 ALT U/L 7 8 9 AST U/L 11 12 12 ALK PHOS U/L 58 64 61 Results from last 7 days Lab Units 10/10/23 02210/09/23 0255 10/08/23 1356 BEDSIDE GLUCOSE mg/dL -- -- 114* GLUCOSE mg/dL 86 113* -- Lab Results Component Value Date HGBA1C 5.5 09/21/2023 Results from last 7 days Lab Units 10/04/23 2246 BNP pg/mL 833* D DIMER ng/mL DDU 339* Results from last 7 days Lab Units 10/05/23 1459 10/05/23 0306 LACTIC ACID mmol/L -- 2.1* PROCALCITONIN ng/mL 0.16* -- Results from last 7 days Lab Units 10/05/23 1459 CHOLESTEROL mg/dL 136* HDL mg/dL 41 LDL (CALC) mg/dL 78 TRIGLYCERIDES mg/dL 83 Lab Results Component Value Date WBCU 440 (H) 10/09/2023 SPECIFICGRA 1.012 10/09/2023 LEUKOCYTE Large (A) 10/09/2023 NITRITEN Negative 09/21/2023 PHNUR 6.0 09/21/2023 PROTEINNUR Negative 09/21/2023 KETONESNUR Negative 09/21/2023 UROBILINOGEN <1.1 10/09/2023 BLOODHGBNU Large (A) 09/21/2023 Radiology X-ray chest 1 view Result Date: 10/09/2023 CHEST 1 VIEW HISTORY: Postthoracentesis COMPARISON: 10/08/2023 FINDINGS: Stable left-sided central venous catheter and sternotomy wires. Unchanged small left pleural effusion with adjacent atelectasis. No pneumothorax. Right lung is clear. IMPRESSION: No significant interval change. Finalized by Edilberto Willoughby MD on 10/09/2023 8:42 AM X-ray chest 1 view Result Date: 10/08/2023 Single view chest History:post thoracentesis Difficulty breathing, shortness of breath Comparison: 10/06/2023 Findings: Single portable view of the chest. Left jugular catheter is stable. Decreased left pleural effusion with left lower lung atelectasis versus pneumonia. Stable cardiomediastinal silhouette. Mild vascular congestion. Impression: Decreased left pleural effusion with persistent left lo wer lung atelectasis versus pneumonia. Finalized by Kye Kapadia MD on 10/08/2023 7:08 AM IR thoracentesis with guidance left Result Date: 10/07/2023 Ultrasound-guided left thoracentesis. Indication: pleural effusion, shortness of breath. Consent: The risks and benefits of the procedure were explained to the patient signed written consent. TIME OUT: [place] Protocol Time Out Verification performed. Procedure details: In the sitting position, the left chest was evaluated with ultrasound and this revealed small pleural effusion. The posterior left chest was prepped and draped in a sterile fashion and the skin was infiltrated with 1% lidocaine. A small skin francois with an 11 blade was made. Using real-time ultrasound guidance, an 18-gauge Yueh needle was advanced in the left posterior pleural cavity during direct ultrasound needle visualizat ion, and an ultrasound customer account representative image was obtained and saved in PACS; the catheter was connected to a vacuum bottle, and approximately 0.5 liters of yellow fluid was removed and sent for analysis. The needle was removed and dressing placed. No immediate complications. Estimated blood loss: 0 mL of blood. Batch Operator: None. Complications: None. Impression: Ultrasound-guided left thoracentesis revealing 0.5 liters of fluid. Finalized by Cami Andre MD on 10/07/2023 6:31 PM Cultures Microbiology Results Procedure Component Value Units Date/Time Body fluid culture includes gram stain [[id number]] Collected: 10/07/23 1345 Specimen: Pleural Fluid Updated: 10/10/23 0711 Gram Stain Result WHITE BLOOD CELLS PRESENT NO ORGANISMS SEEN ON CONCENTRATED SMEAR Culture NO GROWTH 3 DAYS Anaerobic culture [[id number]] Collected: 10/07/23 1345 Specimen: Pleural Fluid Updated: 10/08/23 0938 Culture CULTURE IN PROGRESS Fungal culture includes fungal smear [[id number]] Collected: 10/07/23 1345 Specimen: Pleural Fluid Updated: 10/08/23 0720 Fungal smear -- NO FUNGAL ELEMENTS SEEN ON CONCENTRATED SMEAR Culture PENDING Mrsa Pcr nasal swab [[id number]] Collected: 10/05/23 1723 Specimen: Nasal Updated: 10/05/23 1927 Mrsa PCR Negative Resp Pathogens Panel/SARS CoV-2 [[id number]] Collected: 10/05/23 1723 Specimen: Nasopharynx Updated: 10/05/23 1935 Specimen Source NASO PHARYNX Adenovirus Detection by PCR Not Detected Coronavirus 229e Not Detected Coronavirus hku1 Not Detected Coronavirus nl63 Not Detected Coronavirus oc43 Not Detected Human metapneumovirus Not Detected Rhinovirus/enterovirus Not Detected Influenza A Not Detected Influenza B Not Detected Parainfluenza 1 Not Detected Parainfluenza 2 Not Detected Parainfluenza 3 Not Detected Parainfluenza 4 Not Detected Respiratory syncytial virus Not Detected Bordetella parapertussis Not Detected Bordetella pertussis Not Detected Chlamydophila pneumophilia Not Detected Mycoplasma pneumoniae Not Detected SARS COV 2 Not Detected Blood culture #2 [[id number]] Collected: 10/05/23 1653 Specimen: Blood Updated: 10/09/23 1821 Culture NO GROWTH 4 DAYS Blood culture #1 [[id number]] Collected: 10/05/23 1652 Specimen: Blood Updated: 10/09/23 1821 Culture NO GROWTH 4 DAYS Urine culture [[id number]] Collected: 10/05/23 0236 Specimen: Urine from Call Catheter Specimen Updated: 10/06/23 0824 Specimen Notes URINE RECEIVED WITHOUT PRESERVATIVE Culture NO GROWTH AT <1000 CFU/mL SARS/FLU A+B/RSV by NAAT/Molecular (M4RT Collection Tube) [[id number]] Collected: 10/04/23 2307 Specimen: Nasopharynx Updated: 10/05/23 0024 FLU A PCR Negative FLU B PCR Negative RSV by PCR Negative SARS CoV 2 BY PCR Not Detected Blood culture [[id number]] Collected: 10/04/23 2257 Specimen: Blood Updated: 10/09/23 1017 Culture NO GROWTH 4 DAYS Blood culture [[id number]] Collected: 10/04/23 2247 Specimen: Blood Updated: 10/09/23 1020 Culture NO GROWTH 4 DAYS Medications Scheduled: ampicillin-sulbactam (UNASYN) IV, 3,000 mg, intravenous, Q12H aspirin, 81 mg, oral, Daily atorvastatin, 40 mg, oral, Nightly heparin (porcine), 5,000 Units, subcutaneous, Q8H LYNN melatonin, 6 mg, oral, Nightly midodrine, 15 mg, oral, TID PARoxetine, 10 mg, oral, Nightly sennosides-docusate sodium, 2 tablet, oral, Nightly sodium chloride, 10 mL, intravenous, Q96H sodium chloride, 10 mL, intravenous, Q96H sodium citrate, 2 mL, intravenous, Q96H sodium citrate, 2 mL, intravenous, Q96H ticagrelor, 90 mg, oral, Q12H LYNN Infusions: dextrose 5 % in water, 100 mL/hr norepinephrine, 0.01-0.4 mcg/kg/min, Last Rate: 0.02 mcg/kg/min (10/10/23622) sodium chloride 0.9 %, 10 mL/hr sodium chloride 0.9 %, 10 mL/hr sodium chloride 0.9 %, 10 mL/hr, Last Rate: Stopped (10/10/23 045) sodium chloride 0.9 %, 3 mL/hr, Last Rate: 3 mL/hr (10/10/23622) As Needed: acetaminophen bisacodyL calcium gluconate OR calcium gluconate OR calcium gluconate dextrose dextrose 5 % in water dextrose 50 % in water (D50W) glucagon (human recombinant) hydrOXYzine magnesium sulfate OR magnesium sulfate midodrine midodrine ondansetron oxyCODONE phenoL polyethylene glycol potassium chloride OR potassium chloride potassium chloride in water OR potassium chloride in water simethicone sodium phosphate IV OR sodium phosphate IV - central line OR sod phos di, mono-K phos mono sodium chloride sodium chloride sodium chloride sodium chloride sodium chloride sodium chloride 0.9 % sodium chloride 0.9 % sodium chloride 0.9 % sodium citrate sodium citrate Assessment Shock of unknown etiology requiring pressors possible urinary source given acutely elevated creatinine in setting of UA positive for leukocyte esterase and calcium oxalate crystals Recurrent CRISTNIE with recent hospitalization (09/21/2023) notable for Proteus mirabilis. Repeat UA positive for Leukocyte esterase, WBC 440, glucose. - follow up with UC Possible community-acquired pneumonia with CT showing moderate left pleural effusion and associatedatelectasis and/or pneumonia with consolidation as well as intermediate solid pulmonary nodule - thoracocentesis shows transudative effusion likely secondary to heart failure. Acute on chronic anemia History of COPD on home oxygen (2L) Essential hypertension Hypotension Hyperlipidemia Type 2 diabetes (non-insulin dependent last A1c 5.5) NSTEMI status post CABG 07/2023 Chronic diastolic heart failure Remote history of nephrolithiasis Plan Continue Unasyn for coverage of possible community-acquired pneumonia and coverage of proteus mirabilis. Will continue Unasyn for total of 7 days (on day 5 currently) 10/04 Bcx NG@24h 10/04 Ucx negative 10/08: UA positive for leukocyte esterase and WBC, will repeat urine cultures Follow up sputum culture if collected Will trend [facility] Ne[facility] consulted. Appreciate recs: Got hemodialysis 10/04+10/05 Lasix challenge 10/06 Received LR bolus 500 mL 10/08 Hypotension on chronic hypotension Continue Pressors are needed for MAP goal >65 Levophed 0.04 Midodrine to 15 mg TID We will consult Cardiology given concern for midodrine affect on patient's existing aortic stenosis Cortisol and TSH WNL Will touch base with Nephrology regarding thoughts on volume status/diuresis as a contributor to hypotension Acute on chronic anemia Hgb on admission 8.9 Hgb 7.2<6.8<7.7 Given declined transfusion, start epo for now PT/OT ordered Replace electrolytes as needed per ICU protocols (K>4, P>3, Mg>2) Strict I/Os Resume home antiplatelet therapy, simvastatin, aspirin, paroxetine Hold blood pressure medications Pressor support: Levo, midodrine Lines (location & placement): PIV, Trialysis catheter in [facility] Call/PEG/Drains: Call DVT prophylaxis: SQH Diet: regular diet Code Status: Full The patient was seen and discussed with attending Dr. Anderson This progress note was completed using a voice taffy puller system. Every effort was made to ensure accuracy. However, inadvertent computerized taffy puller errors may be present. Note has been documented by Denise Emery on 10/10/2023 Attestation: I, Kylee Ramirez MD , was physically present with the participating medical student. I verified the medical student's documentation and included any necessary updates within the note. Kylee Ramirez MD Internal Medicine - PGY1 10/10/23 11:46 AM Associated attestation - Shirley Anderson MD - 10/10/2023 1:43 PM EDT Attestation signed by 1:41 PM PULMONARY/CRITICAL CARE ATTENDING ATTESTATION I have personally and independently examined the patient. I confirm the note and agree with the assessment and plan as documented by the resident. Please note there may be additional comments below. ADDITIONAL COMMENTS: Shock, requiring vasopressors Urinary tract infection Possible community-acquired pneumonia Left-sided pleural effusion status post thoracentesis. Pleural fluid characteristics most consistent with transudative effusion Chronic heart failure with preserved ejection fraction Acute kidney injury CVP checked at bedside - CVP 10 Continue present antimicrobial regimen Trend procalcitonin Volume management per nephrology Shirley Anderson MD [facility] Pul[facility] / Critical Care Pager: [phone] * Sadaf Lloyd MD - 10/09/2023 1:28 PM EDT Images from the original note were not included. NEPHROLOGY DAILY PROGRESS NOTE Subjective: He is awake alert and comfortable. He denies dyspnea. Vital signs in last 24 hours: Vitals: 10/09/23 1100 10/09/23 1200 10/09/23 1247 10/09/23 1300 BP: 123/46 134/70 119/56 117/54 Pulse: 77 76 84 79 Resp: 20 18 22 Temp: TempSrc: SpO2: 98% 99% 97% 98% Weight: Height: Intake/Output: Intake/Output Summary (Last 24 hours) at 10/09/2023 1328 Last data filed at 10/09/2023 1215 Gross per 24 hour Intake 750.94 ml Output 2495 ml Net -1744.06 ml Physical Exam: General appearance: Awake alert oriented 73-year-old male HEENT: On oxygen 2 L per nasal cannula no JVD, no carotid bruits, no lymphadenopathy. Heart:: normal S1-S2, No gallops. Lungs: clear to auscultation B/L Abdomen: no tenderness, no guarding, no hepatosplenomegaly could be appreciated. Extremities: Improvement in lower extremity edema Inpatient Meds: ampicillin-sulbactam (UNASYN) IV, 3,000 mg, intravenous, Q12H aspirin, 81 mg, oral, Daily atorvastatin, 40 mg, oral, Nightly heparin (porcine), 5,000 Units, subcutaneous, Q8H LYNN melatonin, 6 mg, oral, Nightly midodrine, 15 mg, oral, TID PARoxetine, 10 mg, oral, Nightly sennosides-docusate sodium, 2 tablet, oral, Nightly sodium chloride, 10 mL, intravenous, Q96H sodium chloride, 10 mL, intravenous, Q96H sodium citrate, 2 mL, intravenous, Q96H sodium citrate, 2 mL, intravenous, Q96H ticagrelor, 90 mg, oral, Q12H LYNN dextrose 5 % in water, 100 mL/hr norepinephrine, 0.01-0.4 mcg/kg/min, Last Rate: 0.04 mcg/kg/min (10/09/23 0711) sodium chloride 0.9 %, 10 mL/hr sodium chloride 0.9 %, 10 mL/hr sodium chloride 0.9 %, 10 mL/hr, Last Rate: 10 mL/hr (10/09/23 0711) sodium chloride 0.9 %, 3 mL/hr, Last Rate: 3 mL/hr (10/09/23 1242) Nutrition: Dietary Orders (From admission, onward) Start Ordered 10/05/23 1510 Adult diet Regular Texture Diet effective now Question: Diet Type: Answer: Regular Texture 10/05/23 1511 Labs: Results from last 7 days Lab Units 10/09/23 1010 10/09/23 0255 10/08/23 0210 10/07/23 0219 SODIUM mmol/L -- 143 138 137 POTASSIUM mmol/L 4.2 3.8 4.0 3.9 CHLORIDE mmol/L -- 99 98 97* CO2 mmol/L -- 33* 32 30 BUN mg/dL -- 38* 33* 22 CREATININE mg/dL -- 3.49* 3.37* 2.54* CALCIUM mg/dL -- 9.4 9.4 9.4 PHOSPHORUS mg/dL -- 3.9 3.9 3.3 MAGNESIUM mg/dL -- 2.0 2.4 1.8 Results from last 7 days Lab Units 10/09/23 0255 10/08/23 0210 10/07/23 0219 WBC X10E9/L 9.7 8.9 11.4* HEMOGLOBIN g/dL 7.7* 7.3* 7.2* HEMATOCRIT % 23.2* 21.4* 22.3* PLATELETS X10E9/L 110* 94* 120* Results from last 7 days Lab Units 10/09/23 0255 10/08/23 0210 10/07/23 0219 MAGNESIUM mg/dL 2.0 2.4 1.8 Lab Results Component Value Date CALCIUM 9.4 10/09/2023 Lab Results Component Value Date IRON 117 09/21/2023 TIBC 462 (H) 09/21/2023 FERRITIN 114 09/23/2023 Imaging Studies: PROBLEM LIST Acute kidney injury Shock Anion gap metabolic acidosis Recent Proteus mirabilis urinary tract infection August 2020 Recent acute kidney injury secondary to urinary retention resolved with baseline creatinine 1.1 mg/dL Chronic obstructive pulmonary disease on home oxygen Type 2 diabetes mellitus Primary hypertension Anemia Obesity Obstructive sleep apnea Hyperlipidemia History of congestive heart failure with preserved left ventricular ejection fraction. On cardiac echo 07/18/2023 the EF of 65-70%. Atherosclerotic coronary artery disease status post coronary artery bypass grafting unknown anatomy. He is said to have had a stent placed in July of 2023 in an unknown location. This was done at [facility] in [place]. History of methicillin-resistant Staphylococcus aureus bacteremia in July of 2023 resulting in hospitalization. A source was never identified. He completed a 28 day course of vancomycin as an outpatient to treat the bacteremia of unknown source. History of megaloblastic anemia with folate deficiency IMPRESSION 1. Acute kidney injury : Hemodialysis initiated October 05, 2023 for volume and solute control. A urinalysis on the showed a specific gravity 1.022 with 600 mg/dL of protein large amount of leukocyte esterase positivity 437 white blood cells and 457 red blood cells per high-power field the fractional excretion of sodium was greater than 1% the urine protein creatinine ratio was 2.58 gram/gram. An LUIGI screen was negative anti glomerular basement membrane antibody titer was negative complement C3 and C4 were normal at 136 and 35 mg/dL. Had hemodialysis on October 04 and . Creatinine upto 3.49 mg/dL but nonoliguric. No indications for hemodialysis today. 2. Shock : Cultures are negative.Remains Levophed dependent 0.02 micrograms/kilogram per minute. OnProAmatine 15 mg p.o. t.id. 3. Heart failure with preserved EF: Cardiac echo September 07 showed an EF of 55- 60%. No mention made of left ventricular diastolic function. Today's chest x-ray shows small left pleural effusion with atelectasis. There was no vascular congestion in the right lung. 4. Concern for community-acquired pneumonia: On Unasyn. All cultures are no growth thus far 5. Anemia: Note ferritin of 114 folate 19.1. Iron was 117 on September 19 percent sat 25. 6. Left-sided pleural effusion: Interventional Radiology consulted for left thoracentesis . 0.5 L of fluid obtained on October 07, 2023. RECOMMENDATION 1. Observe off hemodialysis today. 2. No objection to 500 mL normal saline bolus to see if Levophed can be weaned off. SADAF LLOYD MD,PhD. [facility] ANY QUESTIONS FEEL FREE TO CALL: 1. OFFICE [phone] 2. ANSWERING SERVICE: [phone] * Kylee Ramirez MD - 10/09/2023 11:15 AM EDT Images from the original note were not included. Adult ICU Progress Note Patient - Brian Mandel Age - 73 y.o. - 1950 Date of Admission - 10/05/2023 10:53 AM History of Present Illness Brian Mandel is a 73 y.o. male with a history of COPD (on home 2L O2), HTN, HLD, T2DM (09/22/23 A1c 5.5), Aortic stenosis, macrocytic anemia, CAD c/b NSTEMI in 06/2023 s/p CABG, Chronic diastolic HF on GDMT with recent admission 2/2 acute exacerbation on 09/11/23 (07/2023 TTE with LVEF 50-55%, mod-sev AR, mild- mod TR), recent MRSA bacteremia (07/2023). Of note, he has a recent history of CRISTINE. He was recently admitted in on 09/21/2023 for CRISTINE. At that time, he complained of progressively worsening frequency and dysuria. He endorsed a remote history of nephrolithiasis and was noted to have urinary retention (466 per bladder scan)/ labs notable Creatinine 1.70 BUN 28 GFR 42 lactate 3.3. Urine culture during admission was notable for Proteus mirabilis. He was discharged on hospital day 3 with cipro 500mg BID [id number] and schedules followup with urology. He presented to the ED on night of 10/04/2023 with chief complaint of shortness of breath for the last several days that he thought was secondary to his anemia. He also endorsed chronic cough worsening over the last week as well as watery diarrhea (3 times overnight) and vomiting (3 episodes). Hemoglobin was stable around 8. He had significantly elevated and uptrending creatinine (6.9 0->7.09). UA notable for moderate leukocyte esterase, trace ketonuria, calcium oxalate crystals present. BNPwas 833. Troponin's mildly elevated at 21->23. Lactate mildly elevated at 2.7. Flu, COVID, RSV negative. CT of the chest showed moderately large pleural effusion and/or pneumonia. CTA/P unremarkable. He was presumed to have community-acquired pneumonia and so was treated with azithromycin/ceftriaxone. However, he developed hypotension, was given 1 L LR bolus, requiring pressors (Levo 0.04). Given his pressor requirements, patient was admitted to ICU. Upon presentation he was hypotensive at 87/44 on Levophed 0.04. However he was had no complaints and was asymptomatic, and in no acute distress. He was A&O x4 and conversational.Given his recent history of CRISTINE and significantly elevated and uptrending creatinine, Nephrology was consulted for consideration of emergent hemodialysis. Of note, central line was attempted and failed while patient was in the ED, therefore if patient needs dialysis, will tentatively plan on IR consult for tunneled catheter. 10/06/2023: Patient was given hemodialysis for volume and solute control with good response. Blood pressures have been in the 80/40s on levophed and midrodrine. Patient notes that he is somewhat nauseous, otherwise no complaints. 10/07/2023: No acute overnight events. We will try a Lasix challenge per Nephrology, patient urinated 1.2 Ls . Doxycycline switch to Unasyn for coverage of community- acquired pneumonia. IR consulted for left thoracentesis, remove 0.5 L of fluid sent for analysis. 10/08/2023: No acute overnight events. Continue antibiotics. Patient continues to need Levophed 0.02, goal for today is wean him off of pressor support. Pleural fluid meets transudative criteria with a high cellcount. Interval History No acute overnight events. This morning the patient reports sleeping well. Per Nephrology, had repeat diuretic challenge yesterday with good response (2.4L UO) Denies any increased shortness of breath, chest pain, abdominal pain, nausea, vomiting, fevers, chills, night sweats, but endorses passing gas. Objective Vitals Temp: [36.7 C (98.1 F)-36.9 C (98.4 F)] 36.7 C (98.1 F) Pulse: [73-100] 79 Resp: [16-26] 21 BP: (77-126)/(40-98) 77/64 SpO2: [86 %-100 %] 98 % O2 Device: Nasal cannula O2 Flow Rate (L/min): [2 L/min-3 L/min] 2 L/min Weight: Admission weight: 106.1 kg (234 lb) Wt Readings from Last 3 Encounters: 10/07/23 108.2 kg (238 lb 8.6 oz) 10/04/23 106.1 kg (234 lb) 09/21/23 106.1 kg (234 lb) Input/Output: Intake/Output Summary (Last 24 hours) at 10/09/2023 1115 Last data filed at 10/09/2023 0711 Gross per 24 hour Intake 970.94 ml Output 2070 ml Net -1099.06 ml Ventilator: GENERAL: Well developed, well nourished, Aox3, In no acute distress. HEAD: Atraumatic; normocephalic. EYES: PERRL, EOMI CARDIAC: RRR. Murmur present. ABDOMEN: Soft, nondistended, nontender. Normoactive bowel sounds. No guarding or rebound. SKIN: Skin normal color, texture and turgor with no lesions or eruptions. Lab Results Results from last 7 days Lab Units 10/09/23 0255 10/08/23 02110/07/23218 WBC X10E9/L 9.7 8.9 11.4* HEMOGLOBIN g/dL 7.7* 7.3* 7.2* HEMATOCRIT % 23.2* 21.4* 22.3* PLATELETS X10E9/L 110* 94* 120* Results from last 7 days Lab Units 10/09/23 02510/08/23 0210 10/07/23 0219 10/05/23 1459 10/05/23 0603 10/04/23 2246 APTT sec -- -- -- -- 32 33 INR 1.1 1.0 1.1 < > 1.1 1.1 < > = values in this interval not displayed. Results from last 7 days Lab Units 10/09/23 1010 10/09/23 0255 10/08/23 0210 10/07/23 021 SODIUM mmol/L -- 143 138 137 POTASSIUM mmol/L 4.2 3.8 4.0 3.9 CHLORIDE mmol/L -- 99 98 97* CO2 mmol/L -- 33* 32 30 BUN mg/dL -- 38* 33* 22 CREATININE mg/dL -- 3.49* 3.37* 2.54* CALCIUM mg/dL -- 9.4 9.4 9.4 PHOSPHORUS mg/dL -- 3.9 3.9 3.3 MAGNESIUM mg/dL -- 2.0 2.4 1.8 Results from last 7 days Lab Units 10/09/23 0255 10/08/23 0210 10/07/23 1608 10/07/23 1345 10/07/23 021 ALBUMIN g/dL 3.5 3.6 -- -- 4.0 TOTAL PROTEIN g/dL 6.8 6.5 6.8 -- 6.8 TOTAL PROTEIN, FLUID -- -- -- < > -- ALT U/L 8 9 -- -- 8 AST U/L 12 12 -- -- 14 ALK PHOS U/L 64 61 -- -- 55 < > = values in this interval not displayed. Results from last 7 days Lab Units 10/09/23 0255 10/08/23 1356 10/08/23 0210 BEDSIDE GLUCOSE mg/dL -- 114* -- GLUCOSE mg/dL 113* -- 117* Lab Results Component Value Date HGBA1C 5.5 09/21/2023 Results from last 7 days Lab Units 10/04/23 2246 BNP pg/mL 833* D DIMER ng/mL DDU 339* Results from last 7 days Lab Units 10/05/23 1459 10/05/23 0306 LACTIC ACID mmol/L -- 2.1* PROCALCITONIN ng/mL 0.16* -- Results from last 7 days Lab Units 10/05/23 1459 CHOLESTEROL mg/dL 136* HDL mg/dL 41 LDL (CALC) mg/dL 78 TRIGLYCERIDES mg/dL 83 Lab Results Component Value Date WBCU 437 (H) 10/05/2023 SPECIFICGRA 1.022 10/05/2023 LEUKOCYTE Large (A) 10/05/2023 NITRITEN Negative 09/21/2023 PHNUR 6.0 09/21/2023 PROTEINNUR Negative 09/21/2023 KETONESNUR Negative 09/21/2023 UROBILINOGEN <1.1 10/05/2023 BLOODHGBNU Large (A) 09/21/2023 Radiology X-ray chest 1 view Result Date: 10/09/2023 CHEST 1 VIEW HISTORY: Postthoracentesis COMPARISON: 10/08/2023 FINDINGS: Stable left-sided central venous catheter and sternotomy wires. Unchanged small left pleural effusion with adjacent atelectasis. No pneumothorax. Right lung is clear. IMPRESSION: No significant interval change. Finalized by Edilberto Willoughby MD on 10/09/2023 8:42 AM X-ray chest 1 view Result Date: 10/08/2023 Single view chest History:post thoracentesis Difficulty breathing, shortness of breath Comparison: 10/06/2023 Findings: Single portable view of the chest. Left jugular catheter is stable. Decreased left pleural effusion with left lower lung atelectasis versus pneumonia. Stable cardiomediastinal silhouette. Mild vascular congestion. Impression: Decreased left pleural effusion with persistent left lo wer lung atelectasis versus pneumonia. Finalized by Kye Kapadia MD on 10/08/2023 7:08 AM IR thoracentesis with guidance left Result Date: 10/07/2023 Ultrasound-guided left thoracentesis. Indication: pleural effusion, shortness of breath. Consent: The risks and benefits of the procedure were explained to the patient signed written consent. TIME OUT: [place] Protocol Time Out Verification performed. Procedure details: In the sitting position, the left chest was evaluated with ultrasound and this revealed small pleural effusion. The posterior left chest was prepped and draped in a sterile fashion and the skin was infiltrated with 1% lidocaine. A small skin francois with an 11 blade was made. Using real-time ultrasound guidance, an 18-gauge Yueh needle was advanced in the left posterior pleural cavity during direct ultrasound needle visualizat ion, and an ultrasound customer account representative image was obtained and saved in PACS; the catheter was connected to a vacuum bottle, and approximately 0.5 liters of yellow fluid was removed and sent for analysis. The needle was removed and dressing placed. No immediate complications. Estimated blood loss: 0 mL of blood. Batch Operator: None. Complications: None. Impression: Ultrasound-guided left thoracentesis revealing 0.5 liters of fluid. Finalized by Cami Andre MD on 10/07/2023 6:31 PM Cultures Microbiology Results Procedure Component Value Units Date/Time Body fluid culture includes gram stain [[id number]] Collected: 10/07/23 134 Specimen: Pleural Fluid Updated: 10/09/23 0651 Gram Stain Result WHITE BLOOD CELLS PRESENT NO ORGANISMS SEEN ON CONCENTRATED SMEAR Culture NO GROWTH 2 DAYS Anaerobic culture [[id number]] Collected: 10/07/23 1345 Specimen: Pleural Fluid Updated: 10/08/23 0938 Culture CULTURE IN PROGRESS Fungal culture includes fungal smear [[id number]] Collected: 10/07/23 1345 Specimen: Pleural Fluid Updated: 10/08/23 0720 Fungal smear -- NO FUNGAL ELEMENTS SEEN ON CONCENTRATED SMEAR Culture PENDING Mrsa Pcr nasal swab [[id number]] Collected: 10/05/23 1723 Specimen: Nasal Updated: 10/05/23 1927 Mrsa PCR Negative Resp Pathogens Panel/SARS CoV-2 [[id number]] Collected: 10/05/23 1723 Specimen: Nasopharynx Updated: 10/05/23 1935 Specimen Source NASO PHARYNX Adenovirus Detection by PCR Not Detected Coronavirus 229e Not Detected Coronavirus hku1 Not Detected Coronavirus nl63 Not Detected Coronavirus oc43 Not Detected Human metapneumovirus Not Detected Rhinovirus/enterovirus Not Detected Influenza A Not Detected Influenza B Not Detected Parainfluenza 1 Not Detected Parainfluenza 2 Not Detected Parainfluenza 3 Not Detected Parainfluenza 4 Not Detected Respiratory syncytial virus Not Detected Bordetella parapertussis Not Detected Bordetella pertussis Not Detected Chlamydophila pneumophilia Not Detected Mycoplasma pneumoniae Not Detected SARS COV 2 Not Detected Blood culture #2 [[id number]] Collected: 10/05/23 1653 Specimen: Blood Updated: 10/08/23 1820 Culture NO GROWTH 3 DAYS Blood culture #1 [[id number]] Collected: 10/05/23 1652 Specimen: Blood Updated: 10/08/23 1821 Culture NO GROWTH 3 DAYS Urine culture [[id number]] Collected: 10/05/23 0236 Specimen: Urine from Call Catheter Specimen Updated: 10/06/23 0824 Specimen Notes URINE RECEIVED WITHOUT PRESERVATIVE Culture NO GROWTH AT <1000 CFU/mL SARS/FLU A+B/RSV by NAAT/Molecular (M4RT Collection Tube) [[id number]] Collected: 10/04/23 2307 Specimen: Nasopharynx Updated: 10/05/23 0024 FLU A PCR Negative FLU B PCR Negative RSV by PCR Negative SARS CoV 2 BY PCR Not Detected Blood culture [[id number]] Collected: 10/04/23 2257 Specimen: Blood Updated: 10/09/23 1017 Culture NO GROWTH 4 DAYS Blood culture [[id number]] Collected: 10/04/23 2247 Specimen: Blood Updated: 10/09/23 1020 Culture NO GROWTH 4 DAYS Medications Scheduled: ampicillin-sulbactam (UNASYN) IV, 3,000 mg, intravenous, Q12H aspirin, 81 mg, oral, Daily atorvastatin, 40 mg, oral, Nightly heparin (porcine), 5,000 Units, subcutaneous, Q8H LYNN melatonin, 6 mg, oral, Nightly midodrine, 15 mg, oral, TID PARoxetine, 10 mg, oral, Nightly sennosides-docusate sodium, 2 tablet, oral, Nightly sodium chloride, 10 mL, intravenous, Q96H sodium chloride, 10 mL, intravenous, Q96H sodium citrate, 2 mL, intravenous, Q96H sodium citrate, 2 mL, intravenous, Q96H ticagrelor, 90 mg, oral, Q12H LYNN Infusions: dextrose 5 % in water, 100 mL/hr norepinephrine, 0.01-0.4 mcg/kg/min, Last Rate: 0.04 mcg/kg/min (10/09/23710) sodium chloride 0.9 %, 10 mL/hr sodium chloride 0.9 %, 10 mL/hr sodium chloride 0.9 %, 10 mL/hr, Last Rate: 10 mL/hr (10/09/23710) As Needed: acetaminophen bisacodyL calcium gluconate OR calcium gluconate OR calcium gluconate dextrose dextrose 5 % in water dextrose 50 % in water (D50W) glucagon (human recombinant) hydrOXYzine magnesium sulfate OR magnesium sulfate midodrine midodrine ondansetron oxyCODONE phenoL polyethylene glycol potassium chloride OR potassium chloride potassium chloride in water OR potassium chloride in water simethicone sodium phosphate IV OR sodium phosphate IV - central line OR sod phos di, mono-K phos mono sodium chloride sodium chloride sodium chloride sodium chloride sodium chloride sodium chloride 0.9 % sodium chloride 0.9 % sodium chloride 0.9 % sodium citrate sodium citrate Assessment Shock of unknown etiology requiring pressors possible urinary source given acutely elevated creatinine in setting of UA positive for leukocyte esterase and calcium oxalate crystals - further workup pending Recurrent CRISTINE with recent hospitalization (09/21/2023) notable for Proteus mirabilis. Current UA with calcium oxalate crystals - further workup pending Possible community-acquired pneumonia with CT showing moderate left pleural effusion and associatedatelectasis and/or pneumonia with consolidation as well as intermediate solid pulmonary nodule History of COPD on home oxygen (2L) Essential hypertension Hypotension Hyperlipidemia Type 2 diabetes (non-insulin dependent last A1c 5.5) NSTEMI status post CABG 07/2023 Chronic diastolic heart failure Remote history of nephrolithiasis History of anemia Plan Continue Unasyn for coverage of possible community-acquired pneumonia 10/04 Bcx NG@24h 10/04 Ucx negative 10/08: Will repeat UA given prior + UA and negative Ucx. Follow up sputum culture if collected Nephrology consulted. Appreciate recs: Got hemodialysis 10/04+10/05 Lasix challenge 10/06 Hypotension on chronic hypotension Continue Pressors are needed for MAP goal >65 Levophed 0.04 Midodrine to 15 mg TID Will further workup for additional causes of hypotension (Cortisol, TSH) Will touch base with Nephrology regarding thoughts on volume status/diuresis as a contributor to hypotension Consult PT/OT to increase activity level Replace electrolytes as needed per ICU protocols (K>4, P>3, Mg>2) Strict I/Os Resume home antiplatelet therapy, simvastatin, aspirin, paroxetine Hold blood pressure medications Pressor support: Levo, midodrine Lines (location & placement): PIV, Trialysis catheter in [facility] Call/PEG/Drains: Call DVT prophylaxis: SQH Diet: regular diet Code Status: Full The patient was seen and discussed with attending Dr. Rincon. This progress note was completed using a voice taffy puller system. Every effort was made to ensure accuracy. However, inadvertent computerized taffy puller errors may be present. Kylee Ramirez MD Internal Medicine - PGY1 10/09/23 11:22 AM Associated attestation - Summer Rincon MD - 10/09/2023 1:29 PM EDT Attestation signed by 1:24 PM PULMONARY/CRITICAL CARE ATTENDING ATTESTATION I have personally and independently examined the patient. I confirm the note and agree with the assessment and plan as documented by the resident. Please note there may be additional comments below. Patient evaluated at the bedside. Continues to feel well. However, remains on small amount of levophed, uptrended from one day prior without clear source of infection. Will repeat UA, although asymptomatic. Pleural fluid not source of infection. Consider slowing down diuresis, await nephrology input. Summer Rincon MD [facility] / [facility] Care This note was created with the assistance of a speech-recognition program. Although the intention is to generate a document that actually reflects the content of the visit, no guarantees can be provided that every mistake has been identified and corrected by editing. * Sadaf Lloyd MD - 10/08/2023 10:26 AM EDT Images from the original note were not included. NEPHROLOGY DAILY PROGRESS NOTE Subjective: He is awake alert, breathing comfortably. On oxygen 2 L per nasal cannula. Vital signs in last 24 hours: Vitals: 10/08/23 0630 10/08/23 0700 10/08/23 0800 10/08/23 0900 BP: 95/47 97/54 104/52 92/53 Pulse: 74 73 73 81 Resp: 19 18 19 21 Temp: 37 C (98.6 F) TempSrc: Oral SpO2: 99% 98% 99% 99% Weight: Height: Intake/Output: Intake/Output Summary (Last 24 hours) at 10/08/2023 1026 Last data filed at 10/08/2023 0638 Gross per 24 hour Intake 397.1 ml Output 1230 ml Net -832.9 ml Physical Exam: General appearance: Awake alert oriented 73-year-old male HEENT: On oxygen per nasal cannula no JVD, no carotid bruits, no lymphadenopathy. Heart:: normal S1-S2, No gallops. Lungs: clear to auscultation B/L Abdomen: no tenderness, no guarding, no hepatosplenomegaly could be appreciated. Extremities: Improvement in lower extremity edema Inpatient Meds: ampicillin-sulbactam (UNASYN) IV, 3,000 mg, intravenous, Q12H aspirin, 81 mg, oral, Daily atorvastatin, 40 mg, oral, Nightly heparin (porcine), 5,000 Units, subcutaneous, Q8H LYNN melatonin, 6 mg, oral, Nightly midodrine, 15 mg, oral, TID PARoxetine, 10 mg, oral, Nightly sennosides-docusate sodium, 2 tablet, oral, Nightly sodium chloride, 10 mL, intravenous, Q96H sodium chloride, 10 mL, intravenous, Q96H sodium citrate, 2 mL, intravenous, Q96H sodium citrate, 2 mL, intravenous, Q96H ticagrelor, 90 mg, oral, Q12H LYNN dextrose 5 % in water, 100 mL/hr norepinephrine, 0.01-0.4 mcg/kg/min, Last Rate: 0.02 mcg/kg/min (10/08/23 0638) sodium chloride 0.9 %, 10 mL/hr sodium chloride 0.9 %, 10 mL/hr sodium chloride 0.9 %, 10 mL/hr Nutrition: Dietary Orders (From admission, onward) Start Ordered 10/05/23 1510 Adult diet Regular Texture Diet effective now Question: Diet Type: Answer: Regular Texture 10/05/23 1511 Labs: Results from last 7 days Lab Units 10/08/23 0210 10/07/23 0219 10/06/23 1148 10/06/23 0215 SODIUM mmol/L 138 137 -- 135 POTASSIUM mmol/L 4.0 3.9 4.2 3.8 CHLORIDE mmol/L 98 97* -- 95* CO2 mmol/L 32 30 -- 28 BUN mg/dL 33* 22 -- 28* CREATININE mg/dL 3.37* 2.54* -- 3.66* CALCIUM mg/dL 9.4 9.4 -- 9.0 PHOSPHORUS mg/dL 3.9 3.3 -- 4.5 MAGNESIUM mg/dL 2.4 1.8 -- 1.9 Results from last 7 days Lab Units 10/08/23 02110/07/23 0219 10/06/23 0215 WBC X10E9/L 8.9 11.4* 16.5* HEMOGLOBIN g/dL 7.3* 7.2* 8.8* HEMATOCRIT % 21.4* 22.3* 25.8* PLATELETS X10E9/L 94* 120* 184 Results from last 7 days Lab Units 10/08/23 0210 10/07/23 0219 10/06/23 0215 MAGNESIUM mg/dL 2.4 1.8 1.9 Lab Results Component Value Date CALCIUM 9.4 10/08/2023 Lab Results Component Value Date IRON 117 09/21/2023 TIBC 462 (H) 09/21/2023 FERRITIN 114 09/23/2023 Imaging Studies: PROBLEM LIST Acute kidney injury Shock Anion gap metabolic acidosis Recent Proteus mirabilis urinary tract infection August 2020 Recent acute kidney injury secondary to urinary retention resolved with baseline creatinine 1.1 mg/dL Chronic obstructive pulmonary disease on home oxygen Type 2 diabetes mellitus Primary hypertension Anemia Obesity Obstructive sleep apnea Hyperlipidemia History of congestive heart failure with preserved left ventricular ejection fraction. On cardiac echo 07/18/2023 the EF of 65-70%. Atherosclerotic coronary artery disease status post coronary artery bypass grafting unknown anatomy. He is said to have had a stent placed in July of 2023 in an unknown location. This was done at [facility] in [place]. History of methicillin-resistant Staphylococcus aureus bacteremia in July of 2023 resulting in hospitalization. A source was never identified. He completed a 28 day course of vancomycin as an outpatient to treat the bacteremia of unknown source. History of megaloblastic anemia with folate deficiency IMPRESSION 1. Acute kidney injury : Hemodialysis initiated October 05, 2023 for volume and solute control. A urinalysis on the showed a specific gravity 1.022 with 600 mg/dL of protein large amount of leukocyte esterase positivity 437 white blood cells and 457 red blood cells per high-power field the fractional excretion of sodium was greater than 1% the urine protein creatinine ratio was 2.58 gram/gram. An LUIGI screen was negative anti glomerular basement membrane antibody titer was negative complement C3 and C4 were normal at 136 and 35 mg/dL. Had hemodialysis on October 04 and . Creatinine rising but he is nonoliguric. No indications for hemodialysis today. 2. Shock : Presumably septic shock. Remains Levophed dependent 0.02 micrograms/kilogram per minute.On ProAmatine 15 mg p.o. t.id. 3. Heart failure with preserved EF: Cardiac echo September 07 showed an EF of 55- 60%. No mention made of left ventricular diastolic function. X-ray showed large pleural effusion on the left. 4. Concern for community-acquired pneumonia: On Unasyn. All cultures are no growth thus far 5. Anemia: Note ferritin of 114 folate 19.1. Iron was 117 on September 19 1st percent sat 25. 6. Left-sided pleural effusion: Interventional Radiology consulted for left thoracentesis RECOMMENDATION 1. Observe off hemodialysis today. 2. Repeat diuretic challenge SADAF LLOYD MD,PhD. [facility] ANY QUESTIONS FEEL FREE TO CALL: 1. OFFICE [phone] 2. ANSWERING SERVICE: [phone] * Tiny William MD - 10/08/2023 7:31 AM EDT Images from the original note were not included. Adult ICU Progress Note Patient - [facility] Mandel Age - 73 [facility] 1950 [id number] Date of Admission - 10/05/2023 10:53 AM History of Present Illness Brian Mandel is a 73 y.o. male with a history of COPD (on home 2L O2), HTN, HLD, T2DM (09/22/23 A1c 5.5), Aortic stenosis, macrocytic anemia, CAD c/b NSTEMI in 06/2023 s/p CABG, Chronic diastolic HF on GDMT with recent admission 2/2 acute exacerbation on 09/11/23 (07/2023 TTE with LVEF 50-55%, mod-sev AR, mild- mod TR), recent MRSA bacteremia (07/2023). Of note, he has a recent history of CRISTINE. He was recently admitted in on 09/21/2023 for CRISTINE. At that time, he complained of progressively worsening frequency and dysuria. He endorsed a remote history of nephrolithiasis and was noted to have urinary retention (466 per bladder scan)/ labs notable Creatinine 1.70 BUN 28 GFR 42 lactate 3.3. Urine culture during admission was notable for Proteus mirabilis. He was discharged on hospital day 3 with cipro 500mg BID [id number] and schedules followup with urology. He presented to the ED on night of 10/04/2023 with chief complaint of shortness of breath for the last several days that he thought was secondary to his anemia. He also endorsed chronic cough worsening over the last week as well as watery diarrhea (3 times overnight) and vomiting (3 episodes). Hemoglobin was stable around 8. He had significantly elevated and uptrending creatinine (6.9 0->7.09). UA notable for moderate leukocyte esterase, trace ketonuria, calcium oxalate crystals present. BNPwas 833. Troponin's mildly elevated at 21->23. Lactate mildly elevated at 2.7. Flu, COVID, RSV negative. CT of the chest showed moderately large pleural effusion and/or pneumonia. CTA/P unremarkable. He was presumed to have community-acquired pneumonia and so was treated with azithromycin/ceftriaxone. However, he developed hypotension, was given 1 L LR bolus, requiring pressors (Levo 0.04). Given his pressor requirements, patient was admitted to ICU. Upon presentation he was hypotensive at 87/44 on Levophed 0.04. However he was had no complaints and was asymptomatic, and in no acute distress. He was A&O x4 and conversational.Given his recent history of CRISTINE and significantly elevated and uptrending creatinine, Nephrology was consulted for consideration of emergent hemodialysis. Of note, central line was attempted and failed while patient was in the ED, therefore if patient needs dialysis, will tentatively plan on IR consult for tunneled catheter. 10/06/2023: Patient was given hemodialysis for volume and solute control with good response. Blood pressures have been in the 80/40s on levophed and midrodrine. Patient notes that he is somewhat nauseous, otherwise no complaints. 10/07/2023: No acute overnight events. We will try a Lasix challenge per Nephrology, patient urinated 1.2 Ls . Doxycycline switch to Unasyn for coverage of community- acquired pneumonia. IR consulted for left thoracentesis, remove 0.5 L of fluid sent for analysis. 10/08/2023: No acute overnight events. Continue antibiotics. Patient continues to need Levophed 0.02, goal for today is wean him off of pressor support. Pleural fluid meets transudative criteria with a high cellcount. Interval History No acute overnight events. This morning the patient reports sleeping well. He reports ongoing back pain that is chronic. Denies any increased shortness of breath, chest pain, abdominal pain, nausea, vomiting, fevers, chills, night sweats, but endorses passing gas. Objective Vitals Temp: [36.4 C (97.5 F)-36.8 C (98.3 F)] 36.4 C (97.5 F) Pulse: [59-95] 74 Resp: [16-27] 19 BP: (80-115)/(41-80) 95/47 SpO2: [71 %-100 %] 99 % O2 Device: Nasal cannula O2 Flow Rate (L/min): [2 L/min] 2 L/min Weight: Admission weight: 106.1 kg (234 lb) Wt Readings from Last 3 Encounters: 10/07/23 108.2 kg (238 lb 8.6 oz) 10/04/23 106.1 kg (234 lb) 09/21/23 106.1 kg (234 lb) Input/Output: Intake/Output Summary (Last 24 hours) at 10/08/2023 0731 Last data filed at 10/08/2023 0638 Gross per 24 hour Intake 397.1 ml Output 1230 ml Net -832.9 ml Ventilator: GENERAL: Well developed, well nourished, Aox3, In no acute distress. HEAD: Atraumatic; normocephalic. EYES: PERRL, EOMI CARDIAC: RRR. Murmur present. ABDOMEN: Soft, nondistended, nontender. Normoactive bowel sounds. No guarding or rebound. SKIN: Skin normal color, texture and turgor with no lesions or eruptions. Lab Results Results from last 7 days Lab Units 10/08/23 02110/07/2321810/06/23 021 WBC X10E9/L 8.9 11.4* 16.5* HEMOGLOBIN g/dL 7.3* 7.2* 8.8* HEMATOCRIT % 21.4* 22.3* 25.8* PLATELETS X10E9/L 94* 120* 184 Results from last 7 days Lab Units 10/08/23 02110/07/23 02110/06/23 0215 10/05/23 1459 10/05/23 0603 10/04/23 2246 APTT sec -- -- -- -- 32 33 INR 1.0 1.1 1.0 < > 1.1 1.1 < > = values in this interval not displayed. Results from last 7 days Lab Units 10/08/23 02110/07/23 02110/06/23 1148 10/06/23 0215 SODIUM mmol/L 138 137 -- 135 POTASSIUM mmol/L 4.0 3.9 4.2 3.8 CHLORIDE mmol/L 98 97* -- 95* CO2 mmol/L 32 30 -- 28 BUN mg/dL 33* 22 -- 28* CREATININE mg/dL 3.37* 2.54* -- 3.66* CALCIUM mg/dL 9.4 9.4 -- 9.0 PHOSPHORUS mg/dL 3.9 3.3 -- 4.5 MAGNESIUM mg/dL 2.4 1.8 -- 1.9 Results from last 7 days Lab Units 10/08/23 0210 10/07/23 1608 10/07/23 1345 10/07/23 0219 10/06/23 0215 ALBUMIN g/dL 3.6 -- -- 4.0 3.3 TOTAL PROTEIN g/dL 6.5 6.8 -- 6.8 6.9 TOTAL PROTEIN, FLUID g/dL -- -- 3.4 -- -- ALT U/L 9 -- -- 8 9 AST U/L 12 -- -- 14 14 ALK PHOS U/L 61 -- -- 55 69 Results from last 7 days Lab Units 10/08/23 0210 10/07/23 0219 10/06/23 2149 BEDSIDE GLUCOSE mg/dL -- -- 139* GLUCOSE mg/dL 117* 130* -- Lab Results Component Value Date HGBA1C 5.5 09/21/2023 Results from last 7 days Lab Units 10/04/23 2246 BNP pg/mL 833* D DIMER ng/mL DDU 339* Results from last 7 days Lab Units 10/05/23 1459 10/05/23 0306 LACTIC ACID mmol/L -- 2.1* PROCALCITONIN ng/mL 0.16* -- Results from last 7 days Lab Units 10/05/23 1459 CHOLESTEROL mg/dL 136* HDL mg/dL 41 LDL (CALC) mg/dL 78 TRIGLYCERIDES mg/dL 83 Lab Results Component Value Date WBCU 437 (H) 10/05/2023 SPECIFICGRA 1.022 10/05/2023 LEUKOCYTE Large (A) 10/05/2023 NITRITEN Negative 09/21/2023 PHNUR 6.0 09/21/2023 PROTEINNUR Negative 09/21/2023 KETONESNUR Negative 09/21/2023 UROBILINOGEN <1.1 10/05/2023 BLOODHGBNU Large (A) 09/21/2023 Radiology X-ray chest 1 view Result Date: 10/08/2023 Single view chest History:post thoracentesis Difficulty breathing, shortness of breath Comparison: 10/06/2023 Findings: Single portable view of the chest. Left jugular catheter is stable. Decreased left pleural effusion with left lower lung atelectasis versus pneumonia. Stable cardiomediastinal silhouette. Mild vascular congestion. Impression: Decreased left pleural effusion with persistent left lo wer lung atelectasis versus pneumonia. Finalized by Kye Kapadia MD on 10/08/2023 7:08 AM IR thoracentesis with guidance left Result Date: 10/07/2023 Ultrasound-guided left thoracentesis. Indication: pleural effusion, shortness of breath. Consent: The risks and benefits of the procedure were explained to the patient signed written consent. TIME OUT: [place] Protocol Time Out Verification performed. Procedure details: In the sitting position, the left chest was evaluated with ultrasound and this revealed small pleural effusion. The posterior left chest was prepped and draped in a sterile fashion and the skin was infiltrated with 1% lidocaine. A small skin francois with an 11 blade was made. Using real-time ultrasound guidance, an 18-gauge Yueh needle was advanced in the left posterior pleural cavity during direct ultrasound needle visualizat ion, and an ultrasound customer account representative image was obtained and saved in PACS; the catheter was connected to a vacuum bottle, and approximately 0.5 liters of yellow fluid was removed and sent for analysis. The needle was removed and dressing placed. No immediate complications. Estimated blood loss: 0 mL of blood. Batch Operator: None. Complications: None. Impression: Ultrasound-guided left thoracentesis revealing 0.5 liters of fluid. Finalized by Cami Andre MD on 10/07/2023 6:31 PM X-ray chest 1 view Result Date: 10/06/2023 Clinical history: Acute respiratory failure Views: 1 Comparison: 10/05/2023 Findings/Impression: 1. Left pleural effusion with atelectasis. Right lung clear. Heart size prominent. Vasculature stable. Central line overlies SVC. 2. In summary, continued abnormal chest without interval change. Workstati on:[id number] Finalized by Ricardo Serra MD on 10/06/2023 7:39 AM IR CICV non tunneled more than 5 years Result Date: 10/05/2023 CLINICAL INDICATION: ESRD, need for dialysis COMPARISON: None TECHNIQUE: Procedure performed by Interventional Radiologist Neo Anne MD Reference Air Kerma = 17.8 mGy Fluoroscopy time: 1.1 minutes Saved images: 3 CONSENT: The reason of the procedure was discussed with the patient. The procedure, expectations, risks, benefits, options and alternatives were discussed. All of the patient?s questions were answered. The patient understands that the results cannot be guaranteed. The procedure is indicated and the risks are acceptable. Consent was obtained. PROCEDURE: 1. Ultrasound-guided left internal jugular vein access. Placement of a temporary trialysis catheter. Details of procedure: Patie nt placed in the supine position. The left neck was prepped and draped in the usual sterile fashion. Under continuous ultrasound guidance, a patent and compressible left internal jugular vein was accessed with a micropuncture needle. Permanent ultrasound images were stored in PACS. A microwire was placed into the right atrium. A skin francois was made. The needle was removed. A micropuncture sheath was placed. The inner dilator and wire were removed. An Amplatz wire was advanced into the IVC. The micropuncture sheath was then removed. The track was dilated. A temporary trialysis catheter was placed.. The wire was removed. 2-0 Prolene suture was used to secure the line to the skin. All the lumens aspirated and flushed appropriately. Sterile caps applied. A sterile dressing was applied. Patienttolerated the procedure well and there were no immediate complications. FINDINGS: Patent and compressible left internal jugular vein. Satisfactory placement of temporary trialysis catheter IMPRESSION: Successful ultrasound and fluoroscopic guided placement of left internal jugular trialysis catheter Okay to use Finalized by Neo Anne on 10/05/2023 7:02 PM X-ray chest 1 view Result Date: 10/05/2023 History: Known pleural effusion, reassess severity Exam/Technique: AP view of the chest. XR CHEST 1VW Comparison: Recent studies Findings: The heart mediastinum are grossly stable however left hemithorax and heart border obscured by overlapping disease. Mild congestion improved from 09/08/2023. No focal right lung disease. Persistent consolidation and suspected effusion left mid and lower lung. IMPRESSION: * Mild congestion improved from previous with persistent large consolidation and effusionobscuring the left mid and lower hemithorax. Finalized by Soham Chatman DO on 10/05/2023 12:21 PM Cultures Microbiology Results Procedure Component Value Units Date/Time Anaerobic culture [[id number]] Resulted: 10/07/23 1648 Updated: 10/07/23 1648 Body fluid culture includes gram stain [[id number]] Collected: 10/07/23 1345 Specimen: Pleural Fluid Updated: 10/08/23 0719 Gram Stain Result WHITE BLOOD CELLS PRESENT NO ORGANISMS SEEN ON CONCENTRATED SMEAR Culture NO GROWTH <24 HRS Fungal culture includes fungal smear [[id number]] Collected: 10/07/23 1345 Specimen: Pleural Fluid Updated: 10/08/23 0720 Fungal smear -- NO FUNGAL ELEMENTS SEEN ON CONCENTRATED SMEAR Culture PENDING Mrsa Pcr nasal swab [[id number]] Collected: 10/05/23 172 Specimen: Nasal Updated: 10/05/23 192 Mrsa PCR Negative Resp Pathogens Panel/SARS CoV-2 [[id number]] Collected: 10/05/23 172 Specimen: Nasopharynx Updated: 10/05/23 1935 Specimen Source NASO PHARYNX Adenovirus Detection by PCR Not Detected Coronavirus 229e Not Detected Coronavirus hku1 Not Detected Coronavirus nl63 Not Detected Coronavirus oc43 Not Detected Human metapneumovirus Not Detected Rhinovirus/enterovirus Not Detected Influenza A Not Detected Influenza B Not Detected Parainfluenza 1 Not Detected Parainfluenza 2 Not Detected Parainfluenza 3 Not Detected Parainfluenza 4 Not Detected Respiratory syncytial virus Not Detected Bordetella parapertussis Not Detected Bordetella pertussis Not Detected Chlamydophila pneumophilia Not Detected Mycoplasma pneumoniae Not Detected SARS COV 2 Not Detected Blood culture #2 [[id number]] Collected: 10/05/23 1653 Specimen: Blood Updated: 10/07/23 1820 Culture NO GROWTH 2 DAYS Blood culture #1 [[id number]] Collected: 10/05/23 1652 Specimen: Blood Updated: 10/07/23 1821 Culture NO GROWTH 2 DAYS Urine culture [[id number]] Collected: 10/05/23 0236 Specimen: Urine from Call Catheter Specimen Updated: 10/06/23 0824 Specimen Notes URINE RECEIVED WITHOUT PRESERVATIVE Culture NO GROWTH AT <1000 CFU/mL SARS/FLU A+B/RSV by NAAT/Molecular (M4RT Collection Tube) [[id number]] Collected: 10/04/23 2307 Specimen: Nasopharynx Updated: 10/05/23 0024 FLU A PCR Negative FLU B PCR Negative RSV by PCR Negative SARS CoV 2 BY PCR Not Detected Blood culture [[id number]] Collected: 10/04/23 2257 Specimen: Blood Updated: 10/07/23 1017 Culture NO GROWTH 2 DAYS Blood culture [[id number]] Collected: 10/04/23 2247 Specimen: Blood Updated: 10/07/23 1020 Culture NO GROWTH 2 DAYS Medications Scheduled: ampicillin-sulbactam (UNASYN) IV, 3,000 mg, intravenous, Q12H aspirin, 81 mg, oral, Daily atorvastatin, 40 mg, oral, Nightly heparin (porcine), 5,000 Units, subcutaneous, Q8H LYNN melatonin, 6 mg, oral, Nightly midodrine, 15 mg, oral, TID PARoxetine, 10 mg, oral, Nightly sennosides-docusate sodium, 2 tablet, oral, Nightly sodium chloride, 10 mL, intravenous, Q96H sodium chloride, 10 mL, intravenous, Q96H sodium citrate, 2 mL, intravenous, Q96H sodium citrate, 2 mL, intravenous, Q96H ticagrelor, 90 mg, oral, Q12H LYNN Infusions: dextrose 5 % in water, 100 mL/hr norepinephrine, 0.01-0.4 mcg/kg/min, Last Rate: 0.02 mcg/kg/min (10/08/23 0638) sodium chloride 0.9 %, 10 mL/hr sodium chloride 0.9 %, 10 mL/hr sodium chloride 0.9 %, 10 mL/hr As Needed: acetaminophen bisacodyL calcium gluconate OR calcium gluconate OR calcium gluconate dextrose dextrose 5 % in water dextrose 50 % in water (D50W) glucagon (human recombinant) hydrOXYzine magnesium sulfate OR magnesium sulfate midodrine midodrine ondansetron oxyCODONE polyethylene glycol potassium chloride OR potassium chloride potassium chloride in water OR potassium chloride in water simethicone sodium phosphate IV OR sodium phosphate IV - central line OR sod phos di, mono-K phos mono sodium chloride sodium chloride sodium chloride sodium chloride sodium chloride sodium chloride 0.9 % sodium chloride 0.9 % sodium chloride 0.9 % sodium citrate sodium citrate Assessment Shock of unknown etiology requiring pressors possible urinary source given acutely elevated creatinine in setting of UA positive for leukocyte esterase and calcium oxalate crystals - further workup pending Recurrent CRISTINE with recent hospitalization (09/21/2023) notable for Proteus mirabilis. Current UA with calcium oxalate crystals - further workup pending Possible community-acquired pneumonia with CT showing moderate left pleural effusion and associatedatelectasis and/or pneumonia with consolidation as well as intermediate solid pulmonary nodule History of COPD on home oxygen (2L) Essential hypertension Hypotension Hyperlipidemia Type 2 diabetes (non-insulin dependent last A1c 5.5) NSTEMI status post CABG 07/2023 Chronic diastolic heart failure Remote history of nephrolithiasis History of anemia Plan Continue Unasyn for coverage of possible community-acquired pneumonia 10/04 Bcx NG@24h 10/04 Ucx negative Follow up sputum culture if collected Nephrology consulted. Appreciate recs: Got hemodialysis 10/04+10/05 Lasix challenge 10/06 Hypotension on chronic hypotension Continue Pressors are needed for MAP goal >65 Levophed 0.02 Midodrine to 10 mg TID Consult PT/OT to increase activity level Replace electrolytes as needed per ICU protocols (K>4, P>3, Mg>2) Strict I/Os Resume home antiplatelet therapy, simvastatin, aspirin, paroxetine Hold blood pressure medications Pressor support: Levo, midodrine Lines (location & placement): PIV, Trialysis catheter in [facility] Call/PEG/Drains: Call DVT prophylaxis: SQH Diet: regular diet Code Status: Full The patient was seen and discussed with attending Dr. Rincon. This progress note was completed using a voice taffy puller system. Every effort was made to ensure accuracy. However, inadvertent computerized taffy puller errors may be present. Tiny William MD Internal Medicine - PGY1 10/08/23 7:31 AM Associated attestation - Summer Rincon MD - 10/08/2023 2:13 PM EDT Attestation signed by 1:52 PM PULMONARY/CRITICAL CARE ATTENDING ATTESTATION I have personally and independently examined the patient. I confirm the note and agree with the assessment and plan as documented by the resident. Please note there may be additional comments below. Patient evaluated at the bedside. He remains on 0.02mcg/kg/min levophed. He did undergo thoracentesis with lymphocytic predominant effusion, exudative in nature. Patient endorses significant improvement in symptoms. Impression Septic shock, secondary to presumed pneumonia with parapneumonic effusion Left sided pnuemonia History of COPD, not in exacerbation CRISTINE Type 2 DM Recommendations: Continue unasyn for pneumonia Fluid/electrolyte management per nephrology Weaning pressors as able Midodrine in place Pt/ot Home meds resumed as able Summer Rincon MD [facility] / [facility] This note was created with the assistance of a speech-recognition program. Although the intention is to generate a document that actually reflects the content of the visit, no guarantees can be provided that every mistake has been identified and corrected by editing. * Kylee Ramirez MD - 10/07/2023 12:34 PM EDT Images from the original note were not included. Adult ICU Progress Note Patient - [facility] Mandel Age - 73 [facility] 1950 [id number] Date of Admission - 10/05/2023 10:53 AM History of Present Illness Brian Mandel is a 73 y.o. male with a history of COPD (on home 2L O2), HTN, HLD, T2DM (09/22/23 A1c 5.5), Aortic stenosis, macrocytic anemia, CAD c/b NSTEMI in 06/2023 s/p CABG, Chronic diastolic HF on GDMT with recent admission 2/2 acute exacerbation on 09/11/23 (07/2023 TTE with LVEF 50-55%, mod-sev AR, mild- mod TR), recent MRSA bacteremia (07/2023). Of note, he has a recent history of CRISTINE. He was recently admitted in on 09/21/2023 for CRISTINE. At that time, he complained of progressively worsening frequency and dysuria. He endorsed a remote history of nephrolithiasis and was noted to have urinary retention (466 per bladder scan)/ labs notable Creatinine 1.70 BUN 28 GFR 42 lactate 3.3. Urine culture during admission was notable for Proteus mirabilis. He was discharged on hospital day 3 with cipro 500mg BID [id number] and schedules followup with urology. He presented to the ED on night of 10/04/2023 with chief complaint of shortness of breath for the last several days that he thought was secondary to his anemia. He also endorsed chronic cough worsening over the last week as well as watery diarrhea (3 times overnight) and vomiting (3 episodes). Hemoglobin was stable around 8. He had significantly elevated and uptrending creatinine (6.9 0->7.09). UA notable for moderate leukocyte esterase, trace ketonuria, calcium oxalate crystals present. BNPwas 833. Troponin's mildly elevated at 21->23. Lactate mildly elevated at 2.7. Flu, COVID, RSV negative. CT of the chest showed moderately large pleural effusion and/or pneumonia. CTA/P unremarkable. He was presumed to have community-acquired pneumonia and so was treated with azithromycin/ceftriaxone. However, he developed hypotension, was given 1 L LR bolus, requiring pressors (Levo 0.04). Given his pressor requirements, patient was admitted to ICU. Upon presentation he was hypotensive at 87/44 on Levophed 0.04. However he was had no complaints and was asymptomatic, and in no acute distress. He was A&O x4 and conversational.Given his recent history of CRISTINE and significantly elevated and uptrending creatinine, Nephrology was consulted for consideration of emergent hemodialysis. Of note, central line was attempted and failed while patient was in the ED, therefore if patient needs dialysis, will tentatively plan on IR consult for tunneled catheter. 10/06/2023 Patient was given hemodialysis for volume and solute control with good response. Blood pressures have been in the 80/40s on levophed and midrodrine. Patient notes that he is somewhat nauseous, otherwise no complaints. 10/07/2023: No acute overnight events. We will try a Lasix challenge per Nephrology. Doxycycline switch to Unasyn for coverage of community-acquired pneumonia. IR consulted for left thoracentesis given large pleural effusion which can be a source of sepsis Interval History No acute overnight events. I saw and examined the patient at bedside this morning. He was hemodynamically stable and in no acute distress. He was satting well on 2 L nasal cannula. He notes that he feels better. No complaints this morning. He denies nausea, vomiting, headache, chest pain, dyspnea, shortness of breath. Objective Vitals Temp: [36 C (96.8 F)-36.5 C (97.7 F)] 36.4 C (97.6 F) Pulse: [57-80] 77 Resp: [13-28] 18 BP: (69-139)/(38-104) 99/68 SpO2: [84 %-100 %] 97 % O2 Device: Nasal cannula O2 Flow Rate (L/min): [1 L/min-2 L/min] 2 L/min Weight: Admission weight: 106.1 kg (234 lb) Wt Readings from Last 3 Encounters: 10/07/23 108.2 kg (238 lb 8.6 oz) 10/04/23 106.1 kg (234 lb) 09/21/23 106.1 kg (234 lb) Input/Output: Intake/Output Summary (Last 24 hours) at 10/07/2023 1234 Last data filed at 10/07/2023 1058 Gross per 24 hour Intake 938.48 ml Output 130 ml Net 808.48 ml Ventilator: GENERAL: Well developed, well nourished, Aox3, In no acute distress. HEAD: Atraumatic; normocephalic. EYES: PERRL, EOMI CARDIAC: RRR. Normal S1 and S2. No S3, S4, murmurs, rubs, gallops, or heaves. LUNGS: Clear to auscultation bilaterally. No rales, rhonchi, wheezing or diminished breath sounds. ABDOMEN: Soft, nondistended, nontender. Normoactive bowel sounds. No guarding or rebound. EXTREMITIES: Peripheral pulses intact. There is no peripheral edema. Capillary refill is less than 2 seconds. No joint erythema or tenderness. SKIN: Skin normal color, texture and turgor with no lesions or eruptions. Lab Results Results from last 7 days Lab Units 10/07/23 0219 10/06/23 0215 10/05/23 1459 WBC X10E9/L 11.4* 16.5* 7.8 HEMOGLOBIN g/dL 7.2* 8.8* 8.6* HEMATOCRIT % 22.3* 25.8* 25.8* PLATELETS X10E9/L 120* 184 163 Results from last 7 days Lab Units 10/07/2321810/06/2321410/05/23 1459 10/05/23 0603 10/04/23 2246 APTT sec -- -- -- 32 33 INR 1.1 1.0 1.0 1.1 1.1 Results from last 7 days Lab Units 10/07/2321810/06/23 1148 10/06/23 0215 10/05/23 1926 10/05/23 1459 SODIUM mmol/L 137 -- 135 -- 137 POTASSIUM mmol/L 3.9 4.2 3.8 -- 4.5 CHLORIDE mmol/L 97* -- 95* -- 99 CO2 mmol/L 30 -- 28 -- 21* BUN mg/dL 22 -- 28* -- 60* CREATININE mg/dL 2.54* -- 3.66* -- 7.53* CALCIUM mg/dL 9.4 -- 9.0 -- 8.4* PHOSPHORUS mg/dL 3.3 -- 4.5 -- 8.2* MAGNESIUM mg/dL 1.8 -- 1.9 1.7* 1.8 Results from last 7 days Lab Units 10/07/2321810/06/2321410/05/23 19210/05/23 1459 ALBUMIN g/dL 4.0 3.3 3.0* 3.2 TOTAL PROTEIN g/dL 6.8 6.9 6.3 6.8 ALT U/L 8 9 -- 8 AST U/L 14 14 -- 13 ALK PHOS U/L 55 69 -- 67 Results from last 7 days Lab Units 10/07/2321810/06/23 2149 10/06/23 0215 BEDSIDE GLUCOSE mg/dL -- 139* -- GLUCOSE mg/dL 130* -- 186* Lab Results Component Value Date HGBA1C 5.5 09/21/2023 Results from last 7 days Lab Units 10/04/23 2246 BNP pg/mL 833* D DIMER ng/mL DDU 339* Results from last 7 days Lab Units 10/05/23 1459 10/05/23 0306 LACTIC ACID mmol/L -- 2.1* PROCALCITONIN ng/mL 0.16* -- Results from last 7 days Lab Units 08/14/24 1459 CHOLESTEROL mg/dL 136* HDL mg/dL 41 LDL (CALC) mg/dL 78 TRIGLYCERIDES mg/dL 83 Lab Results Component Value Date WBCU 437 (H) 10/05/2023 SPECIFICGRA 1.022 10/05/2023 LEUKOCYTE Large (A) 10/05/2023 NITRITEN Negative 09/21/2023 PHNUR 6.0 09/21/2023 PROTEINNUR Negative 09/21/2023 KETONESNUR Negative 09/21/2023 UROBILINOGEN <1.1 10/05/2023 BLOODHGBNU Large (A) 09/21/2023 Radiology X-ray chest 1 view Result Date: 10/06/2023 Clinical history: Acute respiratory failure Views: 1 Comparison: 10/05/2023 Findings/Impression: 1. Left pleural effusion with atelectasis. Right lung clear. Heart size prominent. Vasculature stable. Central line overlies SVC. 2. In summary, continued abnormal chest without interval change. Workstati on:[id number] Finalized by Ricardo Serra MD on 10/06/2023 7:39 AM IR CICV non tunneled more than 5 years Result Date: 10/05/2023 CLINICAL INDICATION: ESRD, need for dialysis COMPARISON: None TECHNIQUE: Procedure performed by Interventional Radiologist Neo Anne MD Reference Air Kerma = 17.8 mGy Fluoroscopy time: 1.1 minutes Saved images: 3 CONSENT: The reason of the procedure was discussed with the patient. The procedure, expectations, risks, benefits, options and alternatives were discussed. All of the patient?s questions were answered. The patient understands that the results cannot be guaranteed. The procedure is indicated and the risks are acceptable. Consent was obtained. PROCEDURE: 1. Ultrasound-guided left internal jugular vein access. Placement of a temporary trialysis catheter. Details of procedure: Patie nt placed in the supine position. The left neck was prepped and draped in the usual sterile fashion. Under continuous ultrasound guidance, a patent and compressible left internal jugular vein was accessed with a micropuncture needle. Permanent ultrasound images were stored in PACS. A microwire was placed into the right atrium. A skin francois was made. The needle was removed. A micropuncture sheath was placed. The inner dilator and wire were removed. An Amplatz wire was advanced into the IVC. The micropuncture sheath was then removed. The track was dilated. A temporary trialysis catheter was placed.. The wire was removed. 2-0 Prolene suture was used to secure the line to the skin. All the lumens aspirated and flushed appropriately. Sterile caps applied. A sterile dressing was applied. Patienttolerated the procedure well and there were no immediate complications. FINDINGS: Patent and compressible left internal jugular vein. Satisfactory placement of temporary trialysis catheter IMPRESSION: Successful ultrasound and fluoroscopic guided placement of left internal jugular trialysis catheter Okay to use Finalized by Neo Anne on 10/05/2023 7:02 PM X-ray chest 1 view Result Date: 10/05/2023 History: Known pleural effusion, reassess severity Exam/Technique: AP view of the chest. XR CHEST 1VW Comparison: Recent studies Findings: The heart mediastinum are grossly stable however left hemithorax and heart border obscured by overlapping disease. Mild congestion improved from 09/08/2023. No focal right lung disease. Persistent consolidation and suspected effusion left mid and lower lung. IMPRESSION: * Mild congestion improved from previous with persistent large consolidation and effusionobscuring the left mid and lower hemithorax. Finalized by Soham Chatman DO on 10/05/2023 12:[address] abdomen and pelvis without contrast Result Date: 10/05/[address] abdomen and pelvis, 10/04/2023. History: Acute abdominal pain Comparison: CT abdomen and pelvis 09/21/2023. Technique: Multiple contiguous 5 mm axial images were acquired from the lung bases through the ischial tuberosities. Coronal and sagittal reconstructions were performed. Automated exposure control was utilized. Findings: For evaluation of the intrathoracic structures, please refer to report from concurrent chest CT. Evaluation of abdominal structures compromised by absence ofIV contrast. Redemonstration of lobulated contour of the liver without discrete mass or intrahepatic biliary ductal dilatation. Normal gallbladder. Pancreas, spleen and adrenal glands are unremarkable. Nonobstructing bilateral renal calculi with the largest stone located in the left renal pelvis measuring up to 1.7 cm. No hydronephrosis or perinephric fluid collection. Urinary bladder is incompletely distended. Prostate is normal in size with coarse calcification noted. Bowel demonstrates no obstruction or acute inflammatory change. Normal appendix. No free air or fluid. No mesenteric lymph node enlargement. 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 No retroperitoneal or pelvic lymphadenopathy. Fat-containing bilateral inguinal hernias. Significant degenerative disc disease at L5-S1. No acute osseous abnormality. IMPRESSION: * No acute pathologic process. * Nonobstructing bilateral renal calculi. All CT scans at this facility use dose modulation, iterative reconstruction, and/or weight based dosing when appropriate to reduce radiation dose to as low as reasonably achievable. Finalized by Braulio De Anda MD on 10/05/2023 12:[address] chest without contrast Result Date: 10/05/[address] on 10/04/2023 HISTORY: Shortness of breath, pain COMPARISON: CT abdomen and pelvis 09/21/2023 TECHNIQUE: Multiple contiguous 2.5 mm axial images of the chest were obtained. Coronaland sagittal 2-D reconstructions were performed. Automated exposure control was utilized. FINDINGS:Normal caliber thoracic aorta with moderate atherosclerotic calcification. Pulmonary artery is normal in caliber. Heart size is enlarged with severe coronary artery calcifications noted. Valvular calcifications are present. Postoperative changes compatible with CABG. No pericardial effusion. No pathologically enlarged mediastinal lymph nodes. Moderate-sized left pleural effusion with significant a ssociated consolidative change in the left upper and lower lobes. There is a solid 5 mm pulmonary nodule in the right lower lobe along the major fissure. No pneumothorax. Central airways are patent. No chest wall lymphadenopathy. For evaluation of abdominal structures, please refer to report from concurrent CTA abdomen and pelvis. No acute osseous abnormality. IMPRESSION: * Moderate-sized left pleural effusion with associated atelectasis and/or pneumonia. * Indeterminate solid pulmonary nodule measuring less than 6 mm. In a low-risk patient with a solid nodule <6 mm, recommend no follow-up. In a high-risk patient, CT at 12 months is optional with stronger consideration if there is suspicious nodule morphology and/or upper lobe location. All CT scans at this facility use dose modulation, iterative reconstruction, and/or weight based dosing when appropriate to reduce radiation dose to as low as reasonably achievable. Seymour Garcia, et al. Guidelines for Management of Incidental Pulmonary Nodules Detected on CT Images: From the Fleischner Society 2017. Radiology. 2017 Umesh;284(1):228-243. Finalized by Braulio De Anda MD on 10/05/2023 12:07 AM Cultures Microbiology Results Procedure Component Value Units Date/Time Mrsa Pcr nasal swab [[id number]] Collected: 10/05/23 172 Specimen: Nasal Updated: 10/05/231926 Mrsa PCR Negative Resp Pathogens Panel/SARS CoV-2 [[id number]] Collected: 10/05/23 172 Specimen: Nasopharynx Updated: 10/05/23 193 Specimen Source NASO PHARYNX Adenovirus Detection by PCR Not Detected Coronavirus 229e Not Detected Coronavirus hku1 Not Detected Coronavirus nl63 Not Detected Coronavirus oc43 Not Detected Human metapneumovirus Not Detected Rhinovirus/enterovirus Not Detected Influenza A Not Detected Influenza B Not Detected Parainfluenza 1 Not Detected Parainfluenza 2 Not Detected Parainfluenza 3 Not Detected Parainfluenza 4 Not Detected Respiratory syncytial virus Not Detected Bordetella parapertussis Not Detected Bordetella pertussis Not Detected Chlamydophila pneumophilia Not Detected Mycoplasma pneumoniae Not Detected SARS COV 2 Not Detected Blood culture #2 [[id number]] Collected: 10/05/23 1653 Specimen: Blood Updated: 10/06/23 1820 Culture NO GROWTH 1 DAY Blood culture #1 [[id number]] Collected: 10/05/23 1652 Specimen: Blood Updated: 10/06/23 1821 Culture NO GROWTH 1 DAY Urine culture [[id number]] Collected: 10/05/23 0236 Specimen: Urine from Call Catheter Specimen Updated: 10/06/23 0824 Specimen Notes URINE RECEIVED WITHOUT PRESERVATIVE Culture NO GROWTH AT <1000 CFU/mL SARS/FLU A+B/RSV by NAAT/Molecular (M4RT Collection Tube) [[id number]] Collected: 10/04/23 2307 Specimen: Nasopharynx Updated: 10/05/23 0024 FLU A PCR Negative FLU B PCR Negative RSV by PCR Negative SARS CoV 2 BY PCR Not Detected Blood culture [[id number]] Collected: 10/04/232256 Specimen: Blood Updated: 10/07/23 1017 Culture NO GROWTH 2 DAYS Blood culture [[id number]] Collected: 10/04/232246 Specimen: Blood Updated: 08/16/24 1020 Culture NO GROWTH 2 DAYS Medications Scheduled: ampicillin-sulbactam (UNASYN) IV, 3,000 mg, intravenous, Q12H aspirin, 81 mg, oral, Daily atorvastatin, 40 mg, oral, Nightly heparin (porcine), 5,000 Units, subcutaneous, Q8H LYNN melatonin, 6 mg, oral, Nightly midodrine, 10 mg, oral, TID PARoxetine, 10 mg, oral, Nightly sennosides-docusate sodium, 2 tablet, oral, Nightly sodium chloride, 10 mL, intravenous, Q96H sodium chloride, 10 mL, intravenous, Q96H sodium citrate, 2 mL, intravenous, Q96H sodium citrate, 2 mL, intravenous, Q96H ticagrelor, 90 mg, oral, Q12H LYNN Infusions: dextrose 5 % in water, 100 mL/hr norepinephrine, 0.01-0.4 mcg/kg/min, Last Rate: 0.03 mcg/kg/min (10/07/23 0617) sodium chloride 0.9 %, 10 mL/hr sodium chloride 0.9 %, 10 mL/hr sodium chloride 0.9 %, 10 mL/hr As Needed: acetaminophen bisacodyL calcium gluconate OR calcium gluconate OR calcium gluconate dextrose dextrose 5 % in water dextrose 50 % in water (D50W) glucagon (human recombinant) hydrOXYzine magnesium sulfate OR magnesium sulfate midodrine midodrine ondansetron oxyCODONE polyethylene glycol potassium chloride OR potassium chloride potassium chloride in water OR potassium chloride in water simethicone sodium phosphate IV OR sodium phosphate IV - central line OR sod phos di, mono-K phos mono sodium chloride sodium chloride sodium chloride sodium chloride sodium chloride sodium chloride 0.9 % sodium chloride 0.9 % sodium chloride 0.9 % sodium citrate sodium citrate Assessment Shock of unknown etiology requiring pressors possible urinary source given acutely elevated creatinine in setting of UA positive for leukocyte esterase and calcium oxalate crystals - further workup pending Recurrent CRISTINE with recent hospitalization (09/21/2023) notable for Proteus mirabilis. Current UA with calcium oxalate crystals - further workup pending Possible community-acquired pneumonia with CT showing moderate left pleural effusion and associatedatelectasis and/or pneumonia with consolidation as well as intermediate solid pulmonary nodule History of COPD on home oxygen (2L) Chronic medical problems: Essential hypertension Hypotension Hyperlipidemia Type 2 diabetes (non-insulin dependent last A1c 5.5) NSTEMI status post CABG 07/2023 Chronic diastolic heart failure Remote history of nephrolithiasis History of anemia Plan Transitioned doxycycline Unasyn for coverage of possible community-acquired pneumonia 10/04 Bcx NG@24h 10/04 Ucx negative Follow up sputum culture if collected Nephrology consulted. Appreciate recs: Got hemodialysis 10/04+10/05 Lasix challenge 10/06 Hypotension on chronic hypotension Continue Pressors are needed for MAP goal >65 On Levophed 0.08 midodrine to 10 mg TID Consult PT/OT to increase activity level Replace electrolytes as needed per ICU protocols (K>4, P>3, Mg>2) Strict I/O. Resume home antiplatelet therapy, simvastatin, aspirin, paroxetine Hold blood pressure medications IR consulted for left thoracentesis given large left pleural effusion as possible source for sepsis Pressor support: Levo, midodrine Lines (location & placement): PIV, Trialysis catheter in [facility] Call/PEG/Drains: Call DVT prophylaxis: SQH Diet: regular diet Code Status: Full The patient was seen and discussed with attending Dr. Rincon. This progress note was completed using a voice taffy puller system. Every effort was made to ensure accuracy. However, inadvertent computerized taffy puller errors may be present. Kylee Rmairez MD Internal Medicine - PGY1 10/07/23 12:34 PM Associated attestation - Summer Rincon MD - 10/08/2023 7:23 AM EDT Attestation signed by 2:12 PM PULMONARY/CRITICAL CARE ATTENDING ATTESTATION I, SUMMER RINCON MD, personally performed the face to face diagnostic evaluation on this patient. I have reviewed the RASHAUN's History, Exam, and MDM and agree with the assessment and plan as written. Patient evaluated at the bedside. Patient pressor requirement persists, although low. Concern for septic shock, unclear source at this time. Patient does have significant shortness of breath and cough with left sided pleural effusion. Antibiotics changed to unasyn for CAP coverage. IR consulted for Patient with CRISTINE, appreciate nephrology recommendations Wean pressors as able Summer Rincon MD [facility] * Sadaf Lloyd MD - 10/07/2023 8:04 AM EDT Images from the original note were not included. NEPHROLOGY DAILY PROGRESS NOTE Subjective: He is awake alert, breathing comfortably. On oxygen 2 L per nasal cannula. Vital signs in last 24 hours: Vitals: 10/07/23 0600 10/07/23 0615 10/07/23 0630 10/07/23 0645 BP: 107/54 112/57 102/59 126/62 Pulse: 60 74 70 65 Resp: 23 19 18 Temp: TempSrc: SpO2: 99% 99% 97% 97% Weight: Height: Intake/Output: Intake/Output Summary (Last 24 hours) at 10/07/2023 0804 Last data filed at 10/07/2023 0617 Gross per 24 hour Intake 938.48 ml Output 50 ml Net 888.48 ml Physical Exam: General appearance: Awake alert oriented looks better this morning HEENT: On oxygen per nasal cannula no JVD, no carotid bruits, no lymphadenopathy. Heart:: normal S1-S2, No gallops. Lungs: clear to auscultation B/L Abdomen: no tenderness, no guarding, no hepatosplenomegaly could be appreciated. Extremities: Improvement in lower extremity edema Inpatient Meds: aspirin, 81 mg, oral, Daily atorvastatin, 40 mg, oral, Nightly doxycycline, 100 mg, oral, BID heparin (porcine), 5,000 Units, subcutaneous, Q8H LYNN melatonin, 6 mg, oral, Nightly midodrine, 10 mg, oral, TID PARoxetine, 10 mg, oral, Nightly sennosides-docusate sodium, 2 tablet, oral, Nightly sodium chloride, 10 mL, intravenous, Q96H sodium chloride, 10 mL, intravenous, Q96H sodium citrate, 2 mL, intravenous, Q96H sodium citrate, 2 mL, intravenous, Q96H ticagrelor, 90 mg, oral, Q12H LYNN dextrose 5 % in water, 100 mL/hr norepinephrine, 0.01-0.4 mcg/kg/min, Last Rate: 0.03 mcg/kg/min (10/07/23 0617) sodium chloride 0.9 %, 10 mL/hr sodium chloride 0.9 %, 10 mL/hr sodium chloride 0.9 %, 10 mL/hr Nutrition: Dietary Orders (From admission, onward) Start Ordered 10/05/23 1510 Adult diet Regular Texture Diet effective now Question: Diet Type: Answer: Regular Texture 10/05/23 1511 Labs: Results from last 7 days Lab Units 10/07/23 02110/06/23 1148 10/06/23 02110/05/23 1926 10/05/23 1459 SODIUM mmol/L 137 -- 135 -- 137 POTASSIUM mmol/L 3.9 4.2 3.8 -- 4.5 CHLORIDE mmol/L 97* -- 95* -- 99 CO2 mmol/L 30 -- 28 -- 21* BUN mg/dL 22 -- 28* -- 60* CREATININE mg/dL 2.54* -- 3.66* -- 7.53* CALCIUM mg/dL 9.4 -- 9.0 -- 8.4* PHOSPHORUS mg/dL 3.3 -- 4.5 -- 8.2* MAGNESIUM mg/dL 1.8 -- 1.9 1.7* 1.8 Results from last 7 days Lab Units 10/07/23 02110/06/2321410/05/23 1459 WBC X10E9/L 11.4* 16.5* 7.8 HEMOGLOBIN g/dL 7.2* 8.8* 8.6* HEMATOCRIT % 22.3* 25.8* 25.8* PLATELETS X10E9/L 120* 184 163 Results from last 7 days Lab Units 10/07/23 02110/06/2321410/05/231925 MAGNESIUM mg/dL 1.8 1.9 1.7* Lab Results Component Value Date CALCIUM 9.4 10/07/2023 Lab Results Component Value Date IRON 117 09/21/2023 TIBC 462 (H) 09/21/2023 FERRITIN 114 09/23/2023 Imaging Studies: PROBLEM LIST Acute kidney injury Shock Anion gap metabolic acidosis Recent Proteus mirabilis urinary tract infection August 2020 Recent acute kidney injury secondary to urinary retention resolved with baseline creatinine 1.1 mg/dL Chronic obstructive pulmonary disease on home oxygen Type 2 diabetes mellitus Primary hypertension Anemia Obesity Obstructive sleep apnea Hyperlipidemia History of congestive heart failure with preserved left ventricular ejection fraction. On cardiac echo 07/18/2023 the EF of 65-70%. Atherosclerotic coronary artery disease status post coronary artery bypass grafting unknown anatomy. He is said to have had a stent placed in July of 2023 in an unknown location. This was done at [facility] in [place]. History of methicillin-resistant Staphylococcus aureus bacteremia in July of 2023 resulting in hospitalization. A source was never identified. He completed a 28 day course of vancomycin as an outpatient to treat the bacteremia of unknown source. History of megaloblastic anemia with folate deficiency IMPRESSION 1. Acute kidney injury : Hemodialysis initiated October 05, 2023 for volume and solute control. A urinalysis on the showed a specific gravity 1.022 with 600 mg/dL of protein large amount of leukocyte esterase positivity 437 white blood cells and 457 red blood cells per high-power field the fractional excretion of sodium was greater than 1% the urine protein creatinine ratio was 2.58 gram/gram. An LUIGI screen was negative anti glomerular basement membrane antibody titer was negative complement C3 and C4 were normal at 136 and 35 mg/dL. Had hemodialysis on October 04 and . No dialysis is planned today. 2. Shock : Presumably septic shock. Remains Levophed dependent 0.04 micrograms/kilogram per minute 3. Heart failure with preserved EF: Cardiac echo September 07 showed an EF of 55- 60%. No mention made of left ventricular diastolic function. X-ray showed large pleural effusion on the left. 4. Pyuria. On ceftriaxone and Zithromax. No positive blood or urine cultures 5. Anemia: Note ferritin of 114 folate 19.1. Iron was 117 on September 19 1st percent sat 25. RECOMMENDATION 1. Diuretic challenge 2. Left-sided thoracentesis at the discretion of the primary service SADAF LLOYD MD,PhD. [facility] ANY QUESTIONS FEEL FREE TO CALL: 1. OFFICE [phone] 2. ANSWERING SERVICE: [phone] * Kylee Ramirez MD - 10/06/2023 10:40 AM EDT Images from the original note were not included. Adult ICU Progress Note Patient - Brian Mandel Age - 73 [facility] 1950 [id number] Date of Admission - 10/05/2023 10:53 AM Interval History Patient was seen and examined at bedside. He denies nausea, vomiting, fever, chills, shortness of breath, chest pain, abdominal pain. States he is dizzy. No BM for the last several days, but patient reports needing to today. Patient was laying comfortably on 1L NC. Last night, Mr. Mandel was started on hemodialysis for volume and solute control which he tolerated well but required a dose of midodrine before and during dialysis. He continues have low blood pressures and requires levophed (0.04) and midodrine 5 mg TID. History of Present Illness Brian Mandel is a 73 y.o. male with a history of COPD (on home 2L O2), HTN, HLD, T2DM (09/22/23 A1c 5.5), Aortic stenosis, macrocytic anemia, CAD c/b NSTEMI in 06/2023 s/p CABG, Chronic diastolic HF on GDMT with recent admission 2/2 acute exacerbation on 09/11/23 (07/2023 TTE with LVEF 50-55%, mod-sev AR, mild- mod TR), recent MRSA bacteremia (07/2023). Of note, he has a recent history of CRISTINE. He was recently admitted in on 09/21/2023 for CRISTINE. At that time, he complained of progressively worsening frequency and dysuria. He endorsed a remote history of nephrolithiasis and was noted to have urinary retention (466 per bladder scan)/ labs notable Creatinine 1.70 BUN 28 GFR 42 lactate 3.3. Urine culture during admission was notable for Proteus mirabilis. He was discharged on hospital day 3 with cipro 500mg BID [id number] and schedules followup with urology. He presented to the ED on night of 10/04/2023 with chief complaint of shortness of breath for the last several days that he thought was secondary to his anemia. He also endorsed chronic cough worsening over the last week as well as watery diarrhea (3 times overnight) and vomiting (3 episodes). Hemoglobin was stable around 8. He had significantly elevated and uptrending creatinine (6.9 0->7.09). UA notable for moderate leukocyte esterase, trace ketonuria, calcium oxalate crystals present. BNPwas 833. Troponin's mildly elevated at 21->23. Lactate mildly elevated at 2.7. Flu, COVID, RSV negative. CT of the chest showed moderately large pleural effusion and/or pneumonia. CTA/P unremarkable. He was presumed to have community-acquired pneumonia and so was treated with azithromycin/ceftriaxone. However, he developed hypotension, was given 1 L LR bolus, requiring pressors (Levo 0.04). Given his pressor requirements, patient was admitted to ICU. Upon presentation he was hypotensive at 87/44 on Levophed 0.04. However he was had no complaints and was asymptomatic, and in no acute distress. He was A&O x4 and conversational.Given his recent history of CRISTINE and significantly elevated and uptrending creatinine, Nephrology was consulted for consideration of emergent hemodialysis. Of note, central line was attempted and failed while patient was in the ED, therefore if patient needs dialysis, will tentatively plan on IR consult for tunneled catheter. 10/06/2023 Patient was given hemodialysis for volume and solute control with good response. Blood pressures have been in the 80/40s on levophed and midrodrine. Patient notes that he is somewhat nauseous, otherwise no complaints. Objective Vitals Temp: [36.5 C (97.7 F)-37 C (98.6 F)] 36.6 C (97.9 F) Pulse: [54-73] 56 Resp: [14-22] 16 BP: (77-167)/(34-139) 92/68 SpO2: [89 %-100 %] 99 % O2 Device: Nasal cannula O2 Flow Rate (L/min): [2 L/min-3 L/min] 2 L/min Weight: Admission weight: 106.1 kg (234 lb) Wt Readings from Last 3 Encounters: 10/05/23 104.9 kg (231 lb 4.2 oz) 10/04/23 106.1 kg (234 lb) 09/21/23 106.1 kg (234 lb) Input/Output: Intake/Output Summary (Last 24 hours) at 10/06/2023 1041 Last data filed at 10/06/2023 0600 Gross per 24 hour Intake 908.35 ml Output 2220 ml Net -1311.65 ml Ventilator: GENERAL: Well developed, well nourished, Aox3, In no acute distress. HEAD: Atraumatic; normocephalic. EYES: PERRL, EOMI CARDIAC: RRR. Normal S1 and S2. No S3, S4, murmurs, rubs, gallops, or heaves. LUNGS: Clear to auscultation bilaterally. No rales, rhonchi, wheezing or diminished breath sounds. ABDOMEN: Soft, nondistended, nontender. Normoactive bowel sounds. No guarding or rebound. EXTREMITIES: Peripheral pulses intact. There is no peripheral edema. Capillary refill is less than 2 seconds. No joint erythema or tenderness. SKIN: Skin normal color, texture and turgor with no lesions or eruptions. Lab Results Results from last 7 days Lab Units 10/06/2321410/05/23 14510/05/23 0603 10/04/23 2246 WBC X10E9/L 16.5* 7.8 -- 8.3 HEMOGLOBIN g/dL 8.8* 8.6* 8.2* 8.9* HEMATOCRIT % 25.8* 25.8* 24.5* 26.6* PLATELETS X10E9/L 184 163 135* 160 Results from last 7 days Lab Units 10/06/2321410/05/23 14510/05/23 0603 10/04/23 2246 APTT sec -- -- 32 33 INR 1.0 1.0 1.1 1.1 Results from last 7 days Lab Units 10/06/2321410/05/23 1926 10/05/23 1459 10/05/23 0603 10/04/23 2246 SODIUM mmol/L 135 -- 137 -- 134 POTASSIUM mmol/L 3.8 -- 4.5 -- 4.1 CHLORIDE mmol/L 95* -- 99 -- 97* CO2 mmol/L 28 -- 21* -- 25 BUN mg/dL 28* -- 60* -- 58* CREATININE mg/dL 3.66* -- 7.53* 7.09* 6.90* CALCIUM mg/dL 9.0 -- 8.4* -- 8.7 PHOSPHORUS mg/dL 4.5 -- 8.2* -- -- MAGNESIUM mg/dL 1.9 1.7* 1.8 -- 1.3* Results from last 7 days Lab Units 10/06/23 0215 10/05/23 1926 10/05/23 1459 10/04/23 2246 ALBUMIN g/dL 3.3 3.0* 3.2 3.2 TOTAL PROTEIN g/dL 6.9 6.3 6.8 7.3 ALT U/L 9 -- 8 15 AST U/L 14 -- 13 21 ALK PHOS U/L 69 -- 67 76 Results from last 7 days Lab Units 10/06/23 02110/05/23 1459 10/04/23 2246 GLUCOSE mg/dL 186* 163* 121* Lab Results Component Value Date HGBA1C 5.5 09/21/2023 Results from last 7 days Lab Units 10/04/23 2246 BNP pg/mL 833* D DIMER ng/mL DDU 339* Results from last 7 days Lab Units 10/05/23 1459 10/05/23 0306 LACTIC ACID mmol/L -- 2.1* PROCALCITONIN ng/mL 0.16* -- Results from last 7 days Lab Units 10/05/23 1459 CHOLESTEROL mg/dL 136* HDL mg/dL 41 LDL (CALC) mg/dL 78 TRIGLYCERIDES mg/dL 83 Lab Results Component Value Date WBCU 437 (H) 10/05/2023 SPECIFICGRA 1.022 10/05/2023 LEUKOCYTE Large (A) 10/05/2023 NITRITEN Negative 09/21/2023 PHNUR 6.0 09/21/2023 PROTEINNUR Negative 09/21/2023 KETONESNUR Negative 09/21/2023 UROBILINOGEN <1.1 10/05/2023 BLOODHGBNU Large (A) 09/21/2023 Radiology X-ray chest 1 view Result Date: 10/06/2023 Clinical history: Acute respiratory failure Views: 1 Comparison: 10/05/2023 Findings/Impression: 1. Left pleural effusion with atelectasis. Right lung clear. Heart size prominent. Vasculature stable. Central line overlies SVC. 2. In summary, continued abnormal chest without interval change. Workstati on:[id number] Finalized by Ricardo Serra MD on 10/06/2023 7:39 AM IR CICV non tunneled more than 5 years Result Date: 10/05/2023 CLINICAL INDICATION: ESRD, need for dialysis COMPARISON: None TECHNIQUE: Procedure performed by Interventional Radiologist Neo Anne MD Reference Air Kerma = 17.8 mGy Fluoroscopy time: 1.1 minutes Saved images: 3 CONSENT: The reason of the procedure was discussed with the patient. The procedure, expectations, risks, benefits, options and alternatives were discussed. All of the patient?s questions were answered. The patient understands that the results cannot be guaranteed. The procedure is indicated and the risks are acceptable. Consent was obtained. PROCEDURE: 1. Ultrasound-guided left internal jugular vein access. Placement of a temporary trialysis catheter. Details of procedure: Patie nt placed in the supine position. The left neck was prepped and draped in the usual sterile fashion. Under continuous ultrasound guidance, a patent and compressible left internal jugular vein was accessed with a micropuncture needle. Permanent ultrasound images were stored in PACS. A microwire was placed into the right atrium. A skin francois was made. The needle was removed. A micropuncture sheath was placed. The inner dilator and wire were removed. An Amplatz wire was advanced into the IVC. The micropuncture sheath was then removed. The track was dilated. A temporary trialysis catheter was placed.. The wire was removed. 2-0 Prolene suture was used to secure the line to the skin. All the lumens aspirated and flushed appropriately. Sterile caps applied. A sterile dressing was applied. Patienttolerated the procedure well and there were no immediate complications. FINDINGS: Patent and compressible left internal jugular vein. Satisfactory placement of temporary trialysis catheter IMPRESSION: Successful ultrasound and fluoroscopic guided placement of left internal jugular trialysis catheter Okay to use Finalized by Neo Anne on 10/05/2023 7:02 PM X-ray chest 1 view Result Date: 10/05/2023 History: Known pleural effusion, reassess severity Exam/Technique: AP view of the chest. XR CHEST 1VW Comparison: Recent studies Findings: The heart mediastinum are grossly stable however left hemithorax and heart border obscured by overlapping disease. Mild congestion improved from 09/08/2023. No focal right lung disease. Persistent consolidation and suspected effusion left mid and lower lung. IMPRESSION: * Mild congestion improved from previous with persistent large consolidation and effusionobscuring the left mid and lower hemithorax. Finalized by Soham Chtaman DO on 10/05/2023 12:[address] abdomen and pelvis without contrast Result Date: 10/05/[address] abdomen and pelvis, 10/04/2023. History: Acute abdominal pain Comparison: CT abdomen and pelvis 09/21/2023. Technique: Multiple contiguous 5 mm axial images were acquired from the lung bases through the ischial tuberosities. Coronal and sagittal reconstructions were performed. Automated exposure control was utilized. Findings: For evaluation of the intrathoracic structures, please refer to report from concurrent chest CT. Evaluation of abdominal structures compromised by absence ofIV contrast. Redemonstration of lobulated contour of the liver without discrete mass or intrahepatic biliary ductal dilatation. Normal gallbladder. Pancreas, spleen and adrenal glands are unremarkable. Nonobstructing bilateral renal calculi with the largest stone located in the left renal pelvis measuring up to 1.7 cm. No hydronephrosis or perinephric fluid collection. Urinary bladder is incompletely distended. Prostate is normal in size with coarse calcification noted. Bowel demonstrates no obstruction or acute inflammatory change. Normal appendix. No free air or fluid. No mesenteric lymph node enlargement. 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 No retroperitoneal or pelvic lymphadenopathy. Fat-containing bilateral inguinal hernias. Significant degenerative disc disease at L5-S1. No acute osseous abnormality. IMPRESSION: * No acute pathologic process. * Nonobstructing bilateral renal calculi. All CT scans at this facility use dose modulation, iterative reconstruction, and/or weight based dosing when appropriate to reduce radiation dose to as low as reasonably achievable. Finalized by Braulio De Anda MD on 10/05/2023 12:[address] chest without contrast Result Date: 10/05/[address] on 10/04/2023 HISTORY: Shortness of breath, pain COMPARISON: CT abdomen and pelvis 09/21/2023 TECHNIQUE: Multiple contiguous 2.5 mm axial images of the chest were obtained. Coronaland sagittal 2-D reconstructions were performed. Automated exposure control was utilized. FINDINGS:Normal caliber thoracic aorta with moderate atherosclerotic calcification. Pulmonary artery is normal in caliber. Heart size is enlarged with severe coronary artery calcifications noted. Valvular calcifications are present. Postoperative changes compatible with CABG. No pericardial effusion. No pathologically enlarged mediastinal lymph nodes. Moderate-sized left pleural effusion with significant a ssociated consolidative change in the left upper and lower lobes. There is a solid 5 mm pulmonary nodule in the right lower lobe along the major fissure. No pneumothorax. Central airways are patent. No chest wall lymphadenopathy. For evaluation of abdominal structures, please refer to report from concurrent CTA abdomen and pelvis. No acute osseous abnormality. IMPRESSION: * Moderate-sized left pleural effusion with associated atelectasis and/or pneumonia. * Indeterminate solid pulmonary nodule measuring less than 6 mm. In a low-risk patient with a solid nodule <6 mm, recommend no follow-up. In a high-risk patient, CT at 12 months is optional with stronger consideration if there is suspicious nodule morphology and/or upper lobe location. All CT scans at this facility use dose modulation, iterative reconstruction, and/or weight based dosing when appropriate to reduce radiation dose to as low as reasonably achievable. Seymour Garcia, et al. Guidelines for Management of Incidental Pulmonary Nodules Detected on CT Images: From the Fleischner Society 2017. Radiology. 2017 Umesh;284(1):228-243. Finalized by Braulio De Anda MD on 10/05/2023 12:07 AM Cultures Microbiology Results Procedure Component Value Units Date/Time Mrsa Pcr nasal swab [[id number]] Collected: 10/05/231722 Specimen: Nasal Updated: 10/05/231926 Mrsa PCR Negative Resp Pathogens Panel/SARS CoV-2 [[id number]] Collected: 10/05/231722 Specimen: Nasopharynx Updated: 10/05/23 193 Specimen Source NASO PHARYNX Adenovirus Detection by PCR Not Detected Coronavirus 229e Not Detected Coronavirus hku1 Not Detected Coronavirus nl63 Not Detected Coronavirus oc43 Not Detected Human metapneumovirus Not Detected Rhinovirus/enterovirus Not Detected Influenza A Not Detected Influenza B Not Detected Parainfluenza 1 Not Detected Parainfluenza 2 Not Detected Parainfluenza 3 Not Detected Parainfluenza 4 Not Detected Respiratory syncytial virus Not Detected Bordetella parapertussis Not Detected Bordetella pertussis Not Detected Chlamydophila pneumophilia Not Detected Mycoplasma pneumoniae Not Detected SARS COV 2 Not Detected Blood culture #2 [[id number]] Collected: 10/05/23 1653 Specimen: Blood Updated: 10/06/23 0620 Culture NO GROWTH <24 HRS Blood culture #1 [[id number]] Collected: 10/05/23 1652 Specimen: Blood Updated: 10/06/23 0621 Culture NO GROWTH <24 HRS Urine culture [[id number]] Collected: 10/05/23 0236 Specimen: Urine from Call Catheter Specimen Updated: 10/06/23 0824 Specimen Notes URINE RECEIVED WITHOUT PRESERVATIVE Culture NO GROWTH AT <1000 CFU/mL SARS/FLU A+B/RSV by NAAT/Molecular (M4RT Collection Tube) [[id number]] Collected: 10/04/23 2307 Specimen: Nasopharynx Updated: 10/05/23 0024 FLU A PCR Negative FLU B PCR Negative RSV by PCR Negative SARS CoV 2 BY PCR Not Detected Blood culture [[id number]] Collected: 10/04/23 2257 Specimen: Blood Updated: 10/06/23 1017 Culture NO GROWTH 1 DAY Blood culture [[id number]] Collected: 10/04/23 2247 Specimen: Blood Updated: 10/06/23 1020 Culture NO GROWTH 1 DAY Medications Scheduled: aspirin, 81 mg, oral, Daily doxycycline, 100 mg, oral, BID heparin (porcine), 5,000 Units, subcutaneous, Q8H LYNN midodrine, 10 mg, oral, TID sodium chloride, 10 mL, intravenous, Q96H sodium chloride, 10 mL, intravenous, Q96H sodium citrate, 2 mL, intravenous, Q96H sodium citrate, 2 mL, intravenous, Q96H ticagrelor, 90 mg, oral, Q12H LYNN Infusions: dextrose 5 % in water, 100 mL/hr norepinephrine, 0.01-0.4 mcg/kg/min, Last Rate: 0.08 mcg/kg/min (10/06/23 0532) sodium chloride 0.9 %, 10 mL/hr sodium chloride 0.9 %, 10 mL/hr sodium chloride 0.9 %, 10 mL/hr sodium chloride 0.9 %, 250 mL As Needed: acetaminophen albumin human calcium gluconate OR calcium gluconate OR calcium gluconate dextrose dextrose 5 % in water dextrose 50 % in water (D50W) glucagon (human recombinant) magnesium sulfate OR magnesium sulfate midodrine midodrine ondansetron potassium chloride OR potassium chloride potassium chloride in water OR potassium chloride in water sodium phosphate IV OR sodium phosphate IV - central line OR sod phos di, mono-K phos mono sodium chloride sodium chloride sodium chloride sodium chloride sodium chloride sodium chloride 0.9 % sodium chloride 0.9 % sodium chloride 0.9 % sodium citrate sodium citrate Assessment Shock of unknown etiology requiring pressors possible urinary source given acutely elevated creatinine in setting of UA positive for leukocyte esterase and calcium oxalate crystals - further workup pending Recurrent CRISTINE with recent hospitalization (09/21/2023) notable for Proteus mirabilis. Current UA with calcium oxalate crystals - further workup pending Possible community-acquired pneumonia with CT showing moderate left pleural effusion and associatedatelectasis and/or pneumonia with consolidation as well as intermediate solid pulmonary nodule History of COPD on home oxygen (2L) Chronic medical problems: Essential hypertension Hypotension Hyperlipidemia Type 2 diabetes (non-insulin dependent last A1c 5.5) NSTEMI status post CABG 07/2023 Chronic diastolic heart failure Remote history of nephrolithiasis History of anemia Plan Discontinue Azithromycin and Rocephin - Start doxycycline for UTI and possible CAP 10/04 Bcx NG@24h 10/04 Ucx negative Follow up sputum culture if collected Nephrology recommends second HD today given patient's good response. Agree with plan Hypotension on chronic hypotension Continue Pressors are needed for MAP goal >65 On Levophed 0.08 Increase midodrine to 10 mg TID Consult PT/OT to increase activity level Replace electrolytes as needed per ICU protocols (K>4, P>3, Mg>2) Strict I/O. Resume home antiplatelet therapy, simvastatin, aspirin, paroxetine Hold blood pressure medications Pressor support: Levo, midodrine Lines (location & placement): PIV, Trialysis catheter in [facility] Call/PEG/Drains: Call DVT prophylaxis: SQH Diet: regular diet Code Status: Full The patient was seen and discussed with attending Dr. Mccarthy. This progress note was completed using a voice taffy puller system. Every effort was made to ensure accuracy. However, inadvertent computerized taffy puller errors may be present. Denise Emery MS4 [facility] 10/06/23 10:41 AM Attestation: IKylee MD , was physically present with the participating medical student. I verified the medical student's documentation and included any necessary updates within the note. Kylee Ramirez MD Internal Medicine - PGY1 10/06/23 11:20 AM Associated attestation - Gopal Mccarthy MD - 10/06/2023 12:42 PM EDT Attestation signed by 12:36 PM PULMONARY/CRITICAL CARE ATTENDING ATTESTATION: IGopal MD, have personally and independently examined the patient. I confirm the note and agree with the assessment and plan as documented by the resident. Please note there may be additional comments below. ADDITIONAL COMMENTS: Remained hypotensive Patient remained on Levophed Received hemodialysis yesterday Voiced no new complaints Improving metabolic acidosis Remained oliguric Chest x-ray still showing right-sided pleural effusion and atelectasis Acute kidney injury, untreated hemodialysis October 05, 2023 Metabolic acidosis, improving Shock, requiring vasopressors COPD, no evidence of exacerbation Chronic hypoxemic respiratory failure, oxygen at 2 L, stable Heart failure with preserved ejection fraction Titrate pressors to maintain map above 65 Increase midodrine to 10 t.I.d. Hemodialysis per Nephrology Closely monitor urine output Discontinue Rocephin and azithromycin Continue oxygen to maintain O2 sat between 88 and 92% Start doxycycline for 5 days Discussed with career technology teacher time 30 minutes Gopal Mccarthy MD. [facility] This note was created with the assistance of a speech-recognition program. Although the intention is to generate a document that reflects the content of the visit, no guarantees can be provided that every mistake has been identified and corrected by editing. * Sadaf Lloyd MD - 10/06/2023 7:13 AM EDT Images from the original note were not included. NEPHROLOGY DAILY PROGRESS NOTE Subjective: He is awake alert, looks much better this morning. Breathing comfortably. Complains of constipation. Vital signs in last 24 hours: Vitals: 10/06/23 0400 10/06/23 0453 10/06/23 0500 10/06/23 0532 BP: 108/59 (!) 80/50 94/78 103/41 Pulse: 62 62 56 60 Resp: 16 Temp: 36.6 C (97.9 F) TempSrc: Oral SpO2: 100% 90% 99% 91% Weight: Height: Intake/Output: Intake/Output Summary (Last 24 hours) at 10/06/2023 0713 Last data filed at 10/06/2023 0600 Gross per 24 hour Intake 908.35 ml Output 2220 ml Net -1311.65 ml Physical Exam: General appearance: Awake alert oriented looks better this morning HEENT: On oxygen per nasal cannula no JVD, no carotid bruits, no lymphadenopathy. Heart:: normal S1-S2, No gallops. Lungs: clear to auscultation B/L Abdomen: no tenderness, no guarding, no hepatosplenomegaly could be appreciated. Extremities: Improvement in lower extremity edema Inpatient Meds: azithromycin, 500 mg, intravenous, Q24H cefTRIAXone (ROCEPHIN) IV, 1,000 mg, intravenous, Q24H heparin (porcine), 5,000 Units, subcutaneous, Q8H LYNN midodrine, 5 mg, oral, TID sodium chloride, 10 mL, intravenous, Q96H sodium chloride, 10 mL, intravenous, Q96H sodium citrate, 2 mL, intravenous, Q96H sodium citrate, 2 mL, intravenous, Q96H dextrose 5 % in water, 100 mL/hr norepinephrine, 0.01-0.4 mcg/kg/min, Last Rate: 0.08 mcg/kg/min (10/06/23 0532) sodium chloride 0.9 %, 10 mL/hr sodium chloride 0.9 %, 10 mL/hr sodium chloride 0.9 %, 10 mL/hr Nutrition: Dietary Orders (From admission, onward) Start Ordered 10/05/23 1510 Adult diet Regular Texture Diet effective now Question: Diet Type: Answer: Regular Texture 10/05/23 1511 Labs: Results from last 7 days Lab Units 10/06/23 0215 10/05/23 1926 10/05/23 1459 10/05/23 0603 10/04/23 2246 SODIUM mmol/L 135 -- 137 -- 134 POTASSIUM mmol/L 3.8 -- 4.5 -- 4.1 CHLORIDE mmol/L 95* -- 99 -- 97* CO2 mmol/L 28 -- 21* -- 25 BUN mg/dL 28* -- 60* -- 58* CREATININE mg/dL 3.66* -- 7.53* 7.09* 6.90* CALCIUM mg/dL 9.0 -- 8.4* -- 8.7 PHOSPHORUS mg/dL 4.5 -- 8.2* -- -- MAGNESIUM mg/dL 1.9 1.7* 1.8 -- 1.3* Results from last 7 days Lab Units 10/06/23 0215 10/05/23 1459 10/05/23 0603 10/04/23 2246 WBC X10E9/L 16.5* 7.8 -- 8.3 HEMOGLOBIN g/dL 8.8* 8.6* 8.2* 8.9* HEMATOCRIT % 25.8* 25.8* 24.5* 26.6* PLATELETS X10E9/L 184 163 135* 160 Results from last 7 days Lab Units 10/06/23 0215 10/05/23 1926 10/05/23 1459 MAGNESIUM mg/dL 1.9 1.7* 1.8 Lab Results Component Value Date CALCIUM 9.0 10/06/2023 Lab Results Component Value Date IRON 117 09/21/2023 TIBC 462 (H) 09/21/2023 FERRITIN 114 09/23/2023 Imaging Studies: PROBLEM LIST Acute kidney injury Shock Anion gap metabolic acidosis Recent Proteus mirabilis urinary tract infection August 2020 Recent acute kidney injury secondary to urinary retention resolved with baseline creatinine 1.1 mg/dL Chronic obstructive pulmonary disease on home oxygen Type 2 diabetes mellitus Primary hypertension Anemia Obesity Obstructive sleep apnea Hyperlipidemia History of congestive heart failure with preserved left ventricular ejection fraction. On cardiac echo 07/18/2023 the EF of 65-70%. Atherosclerotic coronary artery disease status post coronary artery bypass grafting unknown anatomy. He is said to have had a stent placed in July of 2023 in an unknown location. This was done at [facility] in [place]. History of methicillin-resistant Staphylococcus aureus bacteremia in July of 2023 resulting in hospitalization. A source was never identified. He completed a 28 day course of vancomycin as an outpatient to treat the bacteremia of unknown source. History of megaloblastic anemia with folate deficiency IMPRESSION 1. Acute kidney injury : Hemodialysis initiated October 05, 2023 for volume and solute control. A urinalysis on the showed a specific gravity 1.022 with 600 mg/dL of protein large amount of leukocyte esterase positivity 437 white blood cells and 457 red blood cells per high-power field the fractional excretion of sodium was greater than 1% the urine protein creatinine ratio was 2.58 gram/gram. An LUIGI screen was negative anti glomerular basement membrane antibody titer was negative complement C3 and C4 were normal at 136 and 35 mg/dL. Had 200 mL of urine output yesterday. Had 2 of ultrafiltration yesterday 2. Shock : Presumably septic shock. Remains Levophed dependent 0.08 micrograms/kilogram per minute 3. Heart failure with preserved EF: Cardiac echo September 07 showed an EF of 55- 60%. No mention made of left ventricular diastolic function. 4. Pyuria: Urine culture is pending. Blood cultures are no growth from October 05, 2023. On ceftriaxone and Zithromax. 5. Anemia: Note ferritin of 114 folate 19.1. Iron was 117 on September 19 1st percent sat 25. RECOMMENDATION 1. Chest x-ray one view 2. Hemodialysis today for volume and solute control SADAF LLOYD MD,PhD. [facility] ANY QUESTIONS FEEL FREE TO CALL: 1. OFFICE [phone] 2. ANSWERING SERVICE: [phone] documented in this encounterOhio[facility]24 Consult note* Alexander Burnett MD - 10/11/2023 11:25 AM EDTAssociated Order(s): IP CONSULT TO GASTROENTEROLOGY [facility] Teaching GI Service Initial Gastroenterology/Hepatology Consultation Note IDENTIFYING DATA PATIENT: Brian Mandel ADMIT DATE: 10/05/2023 TIME OF EVALUATION: 10/11/2023 11:26 AM Reason for Consult: Chronic anemia HISTORY OF PRESENT ILLNESS Brian Mandel is a 73 y.o. male who is a known hypertensive, history of coronary artery diseaseon aspirin and ticagrelor, type 2 diabetes mellitus, aortic stenosis, macrocytic anemia. Gastroenterology was consulted for chronic anemia evaluation. Patient was admitted in [facility] on September, secondary to shortness of breaths withcourse complicated by septic shock requiring vasopressors.. He denies any history hematemesis, hematochezia, hematuria, abdominal pain, abdominal swelling, weight loss, family history of cancer, there is no history of cancer, easy bruisability, jaundice. He was previously on aspirin and ticagrelor however he was transitioned to ticagrelor monotherapy on 10/11/2023. Patient reports that he underwent EGD and colonoscopy 2 years ago and patient said it was normal. On the day of consultation patient had a brown bowel movement with no evidence of overt bleeding. Hemoglobin today is 7.7, platelet 108 been low for about 4 days, iron done yesterday is 46, MCV 98,LDH is normal, AST 14, ALT 7, total bilirubin 0.8, INR 1.2. Abdominal ultrasound done on 10 October 2023 showed echogenic liver parenchyma compatible with hepatocellular disease most commonly steatosis. GI HISTORY SUMMARY TABLE Last EGD Last colonoscopy 2 yrs ago, said to be normal by patient. Primary GI physician PAST MEDICAL, SURGICAL, FAMILY, and SOCIAL HISTORY Past Medical History: Diagnosis Date Acute coronary syndrome [place] Anxiety disorder Chronic obstructive asthma with exacerbation [place]) COPD (chronic obstructive pulmonary disease) [place] Diabetes mellitus type 2, controlled ([facility] Essential hypertension Folate deficiency anemia Heart failure [place]) Megaloblastic anemia VT (myocardial infarction) [place] 06/2023 Muscle weakness (generalized) Myocardial infarct ([facility] Obesity Obstructive sleep apnea SARAH (obstructive sleep apnea) Pancytopenia ([facility] Presence of coronary artery bypass graft stent Shock ([facility] 10/05/2023 Supplemental oxygen dependent Past Surgical History: Procedure Laterality Date CARDIAC SURGERY X2 Family History Problem Relation Age of Onset Diabetes Mother Stroke Mother Cancer Mother Heart attack Mother Heart attack Father Stroke Father Diabetes Father Cancer Father Social History: Social History Tobacco Use Smoking status: Never Smokeless tobacco: Never Substance Use Topics Alcohol use: Not Currently Comment: last drink 2003 Drug use: Never MEDICATIONS Allergies: No Known Allergies Home Medications: Prior to Admission medications Medication Sig Start Date End Date Taking? Authorizing Provider aspirin 81 mg Take 1 tablet (81 mg total) by mouth in the morning. Yes Not In System Ref Prov benzonatate (TESSALON PERLES) 200 mg capsule Take 1 capsule (200 mg total) by mouth 3 (three) timesa day as needed for cough. 07/27/23 Yes APRIL Agrawal bisacodyL (DULCOLAX) 10 mg suppository Insert 1 suppository (10 mg total) into the rectum as needed. Yes Not In System Ref Prov dapagliflozin propanediol (FARXIGA) 10 mg tablet Take 1 tablet (10 mg total) by mouth in the morning. 09/12/23 Yes APRIL Agrawal folic acid (FOLVITE) 1 mg tablet Take 1 tablet (1 mg total) by mouth in the morning. Yes Not In System Ref Prov furosemide (LASIX) 20 mg tablet Take 1 tablet (20 mg total) by mouth 2 (two) times a day before meals. 09/11/23 Yes APRIL Agrawal HYDROcodone-acetaminophen (NORCO) 5-325 mg per tablet Take 1 tablet by mouth every 6 (six) hours asneeded. Yes Not In System Ref Prov hydrOXYzine (ATARAX) 50 mg tablet Take 1-2 tablets (50-100 mg total) by mouth nightly as needed. Yes Not In System Ref Prov lisinopriL (PRINIVIL,ZESTRIL) 2.5 mg tablet Take 1 tablet (2.5 mg total) by mouth in the morning. Yes Not In System Ref Prov melatonin (CIRCADIN) tablet Take 2 tablets (6 mg total) by mouth nightly. Yes Not In System Ref Prov metFORMIN XR (GLUCOPHAGE XR) 750 mg 24 hr tablet Take 1 tablet (750 mg total) by mouth nightly. YesNot In System Ref Prov metoprolol (LOPRESSOR) 12.5 mg Take 1 split tablet (12.5 mg total) by mouth in the morning and 1 split tablet (12.5 mg total) before bedtime. Yes Not In System Ref Prov metoprolol succinate XL (TOPROL XL) 25 mg 24 hr tablet Take 1 tablet (25 mg total) by mouth in the morning. 09/13/23 09/12/24 Yes Not In System Ref Prov nitroglycerin (NITROSTAT) 0.[address] 1 tablet (0.4 mg total) under the tongue every 5 (five) minutes as needed for chest pain. Yes Not In System Ref Prov PARoxetine (PAXIL) 10 mg tablet Take 1 tablet (10 mg total) by mouth every morning. Yes Not In System Ref Prov pioglitazone (ACTOS) 30 mg tablet Take 1 tablet (30 mg total) by mouth in the morning. Yes Not In System Ref Prov simethicone (MYLICON) 80 mg chewable tablet Chew 1 tablet (80 mg total) and swallow every 6 (six) hours as needed for flatulence. Yes Not In System Ref Prov simvastatin (ZOCOR) 40 mg tablet Take 1 tablet (40 mg total) by mouth nightly. Yes Not In System Ref Prov ticagrelor (BRILINTA) 90 mg tablet Take 1 tablet (90 mg total) by mouth every 12 (twelve) hours. Yes Not In System Ref Prov acetaminophen (TYLENOL) 325 mg tablet Take 2 tablets (650 mg total) by mouth every 8 (eight) hours as needed for pain. Patient not taking: Reported on 10/05/2023 Not In System Ref Prov albuterol (PROVENTIL,VENTOLIN) 2.5 mg /3 mL (0.083 %) nebulizer solution Inhale 3 mL (2.5 mg total)by nebulization every 6 (six) hours as needed for wheezing. Patient takes it every 2 hours Patient not taking: Reported on 10/05/2023 Not In System Ref Prov amitriptyline (ELAVIL) 25 mg tablet Take 1 tablet (25 mg total) by mouth in the morning. Not In System Ref Prov sodium chloride 0.9 % injection Infuse 10 mL into a venous catheter every 12 (twelve) hours. 07/27/23Maggie Cruz APRN-SHERIDAN sodium chloride 0.9 % injection Infuse 10 mL into a venous catheter as needed for line care. 07/27/23Maggie Cruz APRN-SHERIDAN sodium chloride 0.9 % injection Infuse 10 mL into a venous catheter as needed for line care (beforeand after each intermittent use). 07/27/23 APRIL Agrawal Current Medications: ampicillin-sulbactam (UNASYN) IV, 3,000 mg, intravenous, Q12H atorvastatin, 40 mg, oral, Nightly ferumoxytol, 510 mg, intravenous, Once furosemide, 60 mg, intravenous, Once heparin (porcine), 5,000 Units, subcutaneous, Q8H LYNN magnesium oxide, 400 mg, oral, BID melatonin, 6 mg, oral, Nightly PARoxetine, 10 mg, oral, Nightly sennosides-docusate sodium, 2 tablet, oral, Nightly sodium chloride, 10 mL, intravenous, Q96H sodium chloride, 10 mL, intravenous, Q96H sodium citrate, 2 mL, intravenous, Q96H sodium citrate, 2 mL, intravenous, Q96H ticagrelor, 90 mg, oral, Q12H LYNN PRNs: acetaminophen, 650 mg, Q6H PRN bisacodyL, 10 mg, Daily PRN calcium gluconate, 3,000 mg, PRN calcium gluconate, 4,000 mg, PRN calcium gluconate, 2,000 mg, PRN dextrose, 15 g, PRN dextrose 5 % in water, 100 mL/hr, Continuous PRN dextrose 50 % in water (D50W), 25 mL, PRN glucagon (human recombinant), 1 mg, PRN hydrOXYzine, 25 mg, TID PRN magnesium sulfate, 2,000 mg, PRN Or magnesium sulfate, 4,000 mg, PRN ondansetron, 4 mg, Q6H PRN oxyCODONE, 5 mg, Q6H PRN phenoL, 1 spray, Q2H PRN polyethylene glycol, 17 g, Daily PRN potassium chloride, 20-60 mEq, PRN Or potassium chloride, 20-60 mEq, PRN potassium chloride in water, 10 mEq, PRN Or potassium chloride in water, 10 mEq, PRN simethicone, 80 mg, 4x Daily PRN sodium phosphate IV, 20 mmol, PRN Or sodium phosphate IV - central line, 20 mmol, PRN Or sod phos di, mono-K phos mono, 2 tablet, PRN sodium chloride, 150 mL, Q5 Min PRN sodium chloride, 10 mL, PRN sodium chloride, 10 mL, PRN sodium chloride, 10 mL, PRN sodium chloride, 10 mL, PRN sodium chloride 0.9 %, 10 mL/hr, Continuous PRN sodium chloride 0.9 %, 10 mL/hr, Continuous PRN sodium chloride 0.9 %, 10 mL/hr, Continuous PRN sodium chloride 0.9 %, 20 mL/hr, Continuous PRN sodium citrate, 2 mL, PRN sodium citrate, 2 mL, PRN REVIEW OF SYSTEMS See HPI, otherwise ROS negative as below CONSTITUTIONAL: negative HEENT: negative RESPIRATORY: negative CARDIOVASCULAR: negative GASTROINTESTINAL: as in HPI GENITOURINARY: negative INTEGUMENT/BREAST: negative HEMATOLOGIC/LYMPHATIC: negative ALLERGIC/IMMUNOLOGIC: negative ENDOCRINE: negative MUSCULOSKELETAL: negative NEUROLOGICAL: negative BEHAVIOR/PSYCH: negative OBJECTIVE DATA Vitals: BP 116/60 Pulse 80 Temp 36.7 C (98.1 F) (Oral) Resp 21 Ht 152.4 cm (5') Wt 107.5 kg (236 lb 15.9 oz) SpO2 99% BMI 46.28 kg/m GEN: alert and oriented x3, NAD HEENT: atraumatic, normocephalic, moist mucous membranes, no scleral icterus CV: RRR, no murmur, rub, gallop, no lower extremity edema PULM: CTAB, no accessory muscle use, symmetric chest rise ABD: soft, non-distended, non-tender, positive BS NEURO: no focal deficits, moves all 4 extremities spontaneously SKIN: 1+ bilateral pitting pedal edema PSYCH: normal mood and affect LABS AND IMAGING CBC: Lab Results Component Value Date WBC 6.9 10/11/2023 HGB 7.7 (L) 10/11/2023 HCT 22.4 (L) 10/11/2023 MCV 98 10/11/2023 RDW 16.4 (H) 10/11/2023 PLT 108 (L) 10/11/2023 CMP: Lab Results Component Value Date K 3.8 10/11/2023 CL 101 10/11/2023 CO2 32 10/11/2023 BUN 29 (H) 10/11/2023 GLU 92 10/11/2023 GLU 114 (H) 10/08/2023 Lipase: No components found for: LIP Amylase: No results found for: PINA Ionized Calcium: No components found for: IONCA Magnesium: Lab Results Component Value Date MG 2.1 10/11/2023 Phosphorus: No components found for: PO4 PT/INR: Lab Results Component Value Date INR 1.2 (H) 10/11/2023 TSH: Lab Results Component Value Date TSH 1.11 10/09/2023 VITAMIN B12: No components found for: B12 FOLATE: Lab Results Component Value Date FOLATE 19.1 09/23/2023 IRON: No results found for: FE Iron Saturation: No components found for: PERCENTFESAT TIBC: Lab Results Component Value Date TIBC 279 10/10/2023 FERRITIN: Lab Results Component Value Date FERRITIN 167 10/10/2023 MICRO Blood Culture: No components found for: CBLOOD , CFUNGUSBL Stool Culture: No components found for: CSTOOL IMAGING: Abdominal ultrasound with Doppler, 10/10/2023. History: Dyspnea, fluid overload. Comparison: CT abdomen and pelvis 10/04/2023. Technique: Grayscale sonographic imaging of the right upper quadrant was performed. Color and spectral Doppler ultrasound was used to assess blood flow characteristics. Findings: The liver parenchyma is diffusely echogenic with decreased through-transmission. Liver measures 11.0 cm craniocaudal at mid clavicular line. No discrete mass. No definite intra- or extrahepatic biliary dilatation is seen. No significant abdominal ascites. Gallbladder demonstrates no wall thickening or pericholecystic fluid. The common bile duct measures5 mm which is within the range of normal. No free fluid is demonstrated. Color and spectral Doppler ultrasound was performed to assess the hepatic vasculature. Blood flow within the main portal vein is hepatopedal with a peak systolic velocity of 27.7 cm/sec. Spectral waveforms are normal. The hepatic veins, hepatic arteries and inferior vena cava are patent with normal spectral waveforms. Impression: * No evidence of acute vascular abnormality. * Echogenic liver parenchyma compatible with hepatocellular disease, most commonly steatosis. ASSESSMENT AND PLAN Brian Mandel is a 73 y.o. male who is a known hypertensive, history of coronary artery diseaseon aspirin and ticagrelor, type 2 diabetes mellitus, aortic stenosis, macrocytic anemia. Gastroenterology was consulted for chronic anemia evaluation. Patient was admitted in [facility] on September, secondary to shortness of breaths withcourse complicated by septic shock requiring vasopressors.. He denies any history hematemesis, hematochezia, hematuria, abdominal pain, abdominal swelling, weight loss, family history of cancer, there is no history of cancer, easy bruisability, jaundice. He was previously on aspirin and ticagrelor however he was transitioned to ticagrelor monotherapy on 10/11/2023. Patient reports that he underwent EGD and colonoscopy 2 years ago and patient said it was normal. On the day of consultation patient had a brown bowel movement with no evidence of overt bleeding. Hemoglobin today is 7.7, platelet 108 been low for about 4 days, iron done yesterday is 46, MCV 98,LDH is normal, AST 14, ALT 7, total bilirubin 0.8, INR 1.2. Abdominal ultrasound done on 10 October 2023 showed echogenic liver parenchyma compatible with hepatocellular disease most commonly steatosis. Assessment: Acute on chronic anemia Patient with no signs of overt GI bleeding with iron studies consistent with mild iron deficiency anemia. B12 and folic acid within normal limits. LDH within normal limits making hemolysis less likely. Notably, patient had recent bacteremia therefore myelosuppression is likely contributing Hypoxic respiratory failure Septic shock Coronary artery disease on Brilinta Patient transitioned from dual antiplatelet therapy to Brilinta on 10/11/2023 Plan: In the setting of recent septic shock, hypoxic respiratory failure, and no signs of overt GI bleeding, there is no urgency to undergoing endoscopic evaluation at this time In the setting of iron deficiency anemia, patient would benefit from EGD with biopsies to rule out H pylori and celiac disease however this can not be done while patient is on Brilinta. Patient also had a recent colonoscopy that was unremarkable and therefore no indication for repeat colonoscopy Can consider EGD for further evaluation pending clinical course however the patient would need to have Brilinta held for 5 days prior to procedure and therefore this can likely be completed in the outpatient setting Continue to monitor for overt GI bleeding and transfuse for hemoglobin less than 7 This consult will be discussed with attending physician Dr. Schultz. If you have any questions please feel free to contact the GI Service. Thank you for allowing us to participate in the care of Brian Mandel. PA Academic GI Service 6 am to 4pm weekdays in house 4 pm to 6 am or weekends please contact the offset press operator apprentice to page the fellow strategy planning consultant Associated attestation - Ricardo Schultz MD - 10/12/2023 12:11 PM EDT Seen and discussed with resident, agree with history/physical/assessment/plan. * Orville Oconnell MD - 10/10/2023 4:56 PM EDTAssociated Order(s): IP CONSULT TO CARDIOLOGY Reason for consult: Aortic valve stenosis, aortic valve regurgitation, coronary artery disease History of present illness: The patient is a 73-year-old gentleman. He was admitted to [facility] with dyspnea on October 04, 2023. He has not reported any chest discomfort. He has not had significant episodes of dizziness. He has been diagnosed with shock, which is likely related to sepsis andinfection. He currently is not reporting chest discomfort. He has no palpitations. He has no other acute complaints currently. A review of the progress note from the ICU team today indicates 1 of thereasons for evaluation was concern for midodrine given patient's aortic valve stenosis. Allergies: No known drug allergies Medications: Acetazolamide, Unasyn, aspirin 81 mg daily, atorvastatin 40 mg daily, Bumex 2 mg twicedaily, heparin 5000 units subcutaneously every 8 hours, midodrine 15 mg every 6 hours, paroxetine 10 mg daily and ticagrelor 90 mg twice daily. He is also on norepinephrine infusion. Past medical history: Significant for coronary artery disease with prior revascularization, aortic valve stenosis, aortic valve regurgitation, hypertension, dyslipidemia, diabetes, COPD Physical examination Vitals: Blood pressure 109/68, heart rate 72, respiratory rate 20 Cardiovascular: S1, S2. Regular. There is a 3/6 crescendo decrescendo systolic murmur loudest at the 2nd right intercostal space. There is also a 1/6 decrescendo diastolic murmur at the 2nd right intercostal space Respiratory: Vesicular breath sound Abdomen: Soft Telemetry currently reveals sinus rhythm Labs: White blood cell count 6.9, hemoglobin 7.2, platelet count [id number]. Sodium 144, potassium 3.8,chloride 101, bicarb 35, BUN 35, creatinine 3.03. An echocardiogram performed on July 26, 2023 revealed ejection fraction of 55- 60%. There was evidence of moderate to severe aortic valve regurgitation. Aortic valve stenosis was reported as moderate to severe. Notably peak aortic valve velocity was 411 centimeter/second with a mean gradient of 36 mmHg. Impression 1. Shock, most likely secondary to sepsis 2. Coronary artery disease. This is currently stable 3. Aortic valve stenosis. 4. Aortic valve regurgitation. 5. Acute kidney injury with underlying chronic kidney disease. Recommendations 1. Would discontinue midodrine and continue norepinephrine. Notably the MIDAS trial did not demonstrate that midodrine was beneficial for reducing need for IV pressor support or ICU stay. 2. Continue other current medications. * Sadaf Lloyd MD - 10/05/2023 4:42 PM EDT Images from the original note were not included. NEPHROLOGY CONSULT NOTE Date of Admission: 10/05/2023 10:53 AM Reason for Consult: Acute kidney injury Referring Physician: Dr. Mccarthy PCP: Melanie Taylor DO Chief Complaint: Chief Complaint Patient presents with Shortness of Breath History of Present Illness: Brian Mandel is a 73 y.o. male who at the request of to evaluate acute kidney injury. This patient was recently hospitalized at the [facility] in [facility] from through September 23, 2023. The patient presented on that occasion with complaints of urgency frequency and dysuria. He was noticed to be in urinary retention with 460 mL on bladder scan. CT scan of the abdomen and pelvis was completed and was reportedly negative. A 14 [place] Call catheter was placed. Initial laboratory showed a BUN of 28 and a creatinine of 1.7 mg/dL on September 21 2023. On the 21 of September the creatinine had decreased to 1.26 laboratories on September 23, 2023 showed a BUN of 15 and a creatinine of 1.11. A urine culture at that time on September 21, 2023 grew [id number] Proteus mirabilis. A urinalysis on presentation September 20 showed no evidence of a urinary tract infection the specific gravity was 1.015 there was trace leukocyte esterase positivity negative ketones negative, negative nitrites, negative protein and trace leukocyte esterase positivity. The patient was treated with ciprofloxacin 500 mg p.o.b.i.d. for a total of 10 days. During that hospital stay he was felt to be in acute on chronic congestive heart failure. A cardiacecho on September 08, 2023 showed an EF of 55-60%. There was no comment regarding left ventricular diastolic function. The patient was treated with IV Lasix and was discharged on Lasix 20 mg p.o. b.i.d. in addition to Farxiga 10 mg daily, lisinopril 2.5 mg daily Actos 30 mg daily among other medications. The patient returned to the [place] [facility] with complaints of shortness of breath. He had recently had episodes of diarrhea and decreased oral intake of food and fluid. He was hypotensive apparently and did receive 2 L of normal saline. Laboratories demonstrated significant deterioration in renal function with a creatinine of 6.9 mg/dL initially BNP was 833. Initial lactate was 2.7. A CT scan of the chest showed a left-sided pleural effusion with associated atelectasis or pneumonia. There was an indeterminate solid pulmonary nodule measuring [address] scan of the abdomen pelvis specifically showed no evidence of hydronephrosis. There were nonobstructing bilateral renal calculi with the largeststone located in the left renal pelvis was measuring up to 1.7 cm. Laboratories on 10/04/2023 at 10:46 p.m. showed sodium 134 potassium 4.1 chloride 97 total CO2 25 BUN 58 creatinine 6.9 EGFR 21 BNP 833 magnesium 1.3. The creatinine was 7.09 at 6:03 a.m. on the 14[facility]repeat laboratories on October 05, 2023 at 2:59 p.m. showed sodium 137 potassium 4.5 chloride 99 total CO2 21 BUN 60 creatinine 7.53 calcium 8.4 phosphorus 8.2 lactate 1.8 a urinalysis showed 600 mg/dL protein a specific gravity 1.002 there were 457 red blood cells and 437 white blood cells per high-power field. The fractional excretion of sodium was greater than 1% the urine protein creatinine ratio was 2.58. The patient is said to be chronically hypotensive on ProAmatine 5 mg t.i.d.. In addition to the 2 Lof normal saline he received in [place] he received an additional L of lactated Ringer's today. He has been hypotensive requiring the infusion of Levophed at 0.02 micrograms/kilogram per minute. Mostrecent blood pressure is 108/51. Pressure is near admission were 82/40. The patient is hypotensive with a blood pressure of 70 mm of mercury. PMH: Recent acute kidney injury secondary to urinary retention resolved with baseline creatinine 1.1 mg/dL Chronic obstructive pulmonary disease on home oxygen Type 2 diabetes mellitus Primary hypertension Obesity Obstructive sleep apnea Hyperlipidemia History of congestive heart failure with preserved left ventricular ejection fraction. On cardiac echo 07/18/2023 the EF of 65-70%. Atherosclerotic coronary artery disease status post coronary artery bypass grafting unknown anatomy. He is said to have had a stent placed in July of 2023 in an unknown location. This was done at [facility] in [place]. History of methicillin-resistant Staphylococcus aureus bacteremia in July of 2023 resulting in hospitalization. A source was never identified. He completed a 28 day course of vancomycin as an outpatient to treat the bacteremia of unknown source. History of megaloblastic anemia with folate deficiency PSH: Past Surgical History: Procedure Laterality Date CARDIAC SURGERY * No surgery found * Allergies: No Known Allergies Home Meds: Medications Prior to Admission Medication Sig Dispense Refill Last Dose acetaminophen (TYLENOL) 325 mg tablet Take 2 tablets (650 mg total) by mouth every 8 (eight) hours as needed for pain. albuterol (PROVENTIL,VENTOLIN) 2.5 mg /3 mL (0.083 %) nebulizer solution Inhale 3 mL (2.5 mg total)by nebulization every 6 (six) hours as needed for wheezing. Patient takes it every 2 hours aspirin 81 mg Take 1 tablet (81 mg total) by mouth in the morning. benzonatate (TESSALON PERLES) 200 mg capsule Take 1 capsule (200 mg total) by mouth 3 (three) timesa day as needed for cough. 20 capsule 0 dapagliflozin propanediol (FARXIGA) 10 mg tablet Take 1 tablet (10 mg total) by mouth in the morning. 30 tablet 0 folic acid (FOLVITE) 1 mg tablet Take 1 tablet (1 mg total) by mouth in the morning. furosemide (LASIX) 20 mg tablet Take 1 tablet (20 mg total) by mouth 2 (two) times a day before meals. 30 tablet 0 lisinopriL (PRINIVIL,ZESTRIL) 2.5 mg tablet Take 1 tablet (2.5 mg total) by mouth in the morning. melatonin (CIRCADIN) tablet Take 2 tablets (6 mg total) by mouth nightly. metFORMIN XR (GLUCOPHAGE XR) 750 mg 24 hr tablet Take 1 tablet (750 mg total) by mouth nightly. metoprolol (LOPRESSOR) 12.5 mg Take 1 split tablet (12.5 mg total) by mouth in the morning and 1 split tablet (12.5 mg total) before bedtime. nitroglycerin (NITROSTAT) 0.[address] 1 tablet (0.4 mg total) under the tongue every 5 (five) minutes as needed for chest pain. PARoxetine (PAXIL) 10 mg tablet Take 1 tablet (10 mg total) by mouth every morning. pioglitazone (ACTOS) 30 mg tablet Take 1 tablet (30 mg total) by mouth in the morning. simethicone (MYLICON) 80 mg chewable tablet Chew 1 tablet (80 mg total) and swallow every 6 (six) hours as needed for flatulence. simvastatin (ZOCOR) 40 mg tablet Take 1 tablet (40 mg total) by mouth nightly. sodium chloride 0.9 % injection Infuse 10 mL into a venous catheter every 12 (twelve) hours. 280 mL0 sodium chloride 0.9 % injection Infuse 10 mL into a venous catheter as needed for line care. 100 mL0 sodium chloride 0.9 % injection Infuse 10 mL into a venous catheter as needed for line care (beforeand after each intermittent use). 140 mL 0 ticagrelor (BRILINTA) 90 mg tablet Take 1 tablet (90 mg total) by mouth every 12 (twelve) hours. Inpatient Meds: [START ON 10/06/2023] azithromycin, 500 mg, intravenous, Q24H [START ON 10/06/2023] cefTRIAXone (ROCEPHIN) IV, 1,000 mg, intravenous, Q24H [START ON 10/06/2023] heparin (porcine), 5,000 Units, subcutaneous, Q8H LYNN lactated ringers, 1,000 mL, intravenous, Once midodrine, 5 mg, oral, TID Inpatient Infusion Meds: dextrose 5 % in water, 100 mL/hr norepinephrine, 0.01-0.4 mcg/kg/min, Last Rate: 0.02 mcg/kg/min (10/05/23 1424) sodium chloride 0.9 %, 10 mL/hr sodium chloride 0.9 %, 10 mL/hr sodium chloride 0.9 %, 10 mL/hr Nutrition: Dietary Orders (From admission, onward) Start Ordered 10/05/23 1510 Adult diet Regular Texture Diet effective now Question: Diet Type: Answer: Regular Texture 10/05/23 1511 Social History: Social History Socioeconomic History Marital status: Spouse name: Not on file Number of children: Not on file Years of education: Not on file Highest education level: Not on file Occupational History Not on file Tobacco Use Smoking status: Never Smokeless tobacco: Never Substance and Sexual Activity Alcohol use: Not Currently Comment: last drink 2003 Drug use: Never Sexual activity: Defer Other Topics Concern Not on file Social History Narrative Not on file Social Determinants of Health Financial Resource Strain: Low Risk (07/23/2023) Overall Financial Resource Strain (CARDIA) Difficulty of Paying Living Expenses: Not hard at all Food Insecurity: No Food Insecurity (10/05/2023) Hunger Screening Food Insecurity - Worry: Never True Food Insecurity - Inability: Never True Transportation Needs: No Transportation Needs (09/21/2023) PRAPARE - Transportation Lack of Transportation (Medical): No Lack of Transportation (Non-Medical): No Physical Activity: Insufficiently Active (07/23/2023) Exercise Vital Sign Days of Exercise per Week: 2 days Minutes of Exercise per Session: 10 min Stress: Stress Concern Present (07/23/2023) [employer] [place] [employer] - Occupational Stress Questionnaire Feeling of Stress : Very much Social Connections: Socially Isolated (07/23/2023) Social Connection and Isolation Panel [NHANES] Frequency of Communication with Friends and Family: Three times a week Frequency of Social Gatherings with Friends and Family: Three times a week Attends Confucianist Services: Never Active Member of Clubs or Organizations: No Attends Club or Organization Meetings: Never Marital Status: Interpersonal Safety: Not At Risk (09/21/2023) Humiliation, Afraid, Rape, and Kick questionnaire Fear of Current or Ex-Partner: No Emotionally Abused: No Physically Abused: No Sexually Abused: No Housing Instability: Low Risk (09/21/2023) Housing Instability Housing Instability: No Family History: Family History Problem Relation Age of Onset Diabetes Mother Stroke Mother Cancer Mother Heart attack Mother Heart attack Father Stroke Father Diabetes Father Cancer Father Review of Systems: Constitutional: No fevers chills or night sweats no weight loss Eyes: No scleral icterus no conjunctiva pallor is no visual changes no blurry vision Ears, nose, mouth, throat, and face: No ear pain no mucositis no sore throat Respiratory: Positive for dyspnea Cardiovascular: No chest pain, no palpitations Gastrointestinal: No nausea or vomiting no abdominal pain, no abdominal cramping, normal bowel movements, no diarrhea or constipation Integument/breast: No rashes, and no suspicious lesions or ecchymosis Hematologic/lymphatic: No easy bruising or bleeding, and noted no enlarged lymph nodes Neurological: No headaches, no gait imbalance, no cognitive changes, no focal motor weakness Behavioral/Psych: No significant anxiety or depression no hallucinations Physical Exam: Admission Weight: Weight: 106.1 kg (234 lb) Vitals: Vitals: 10/05/23 1345 10/05/23 1351 10/05/23 1423 10/05/23 1500 BP: 117/73 106/87 (!) 112/95 108/51 Pulse: 64 63 66 63 Resp: 14 Temp: 36.6 C (97.8 F) TempSrc: Oral SpO2: 100% 100% 96% 100% Weight: 104.9 kg (231 lb 4.2 oz) Height: 152.4 cm (5') INTAKE/OUTPUT: No intake or output data in the 24 hours ending 10/05/23 1642 General Appearance: Chronically ill-appearing 73-year-old male in no acute respiratory distress Head: Normocephalic, without obvious abnormality, atraumatic Eyes: conjunctivae/corneas clear. PERRL, EOM's intact. Fundi benign. ENT: ENT exam normal, no neck nodes or sinus tenderness Neck: no adenopathy, no carotid bruit, no JVD, supple, symmetrical, trachea midline and thyroid notenlarged, symmetric, no tenderness/mass/nodules Lungs: clear to auscultation bilaterally Heart: regular rate and rhythm, S1, S2 normal, no murmur, click, rub or gallop Abdomen: soft, non-tender; bowel sounds normal; no masses, no organomegaly Extremities: extremities normal, atraumatic, no cyanosis or edema Skin: Skin color, texture, turgor normal. No rashes or lesions Neurologic: Alert and oriented X 3, normal strength and tone. Normal symmetric reflexes. Normal coordination and gait Labs: Results from last 7 days Lab Units 10/05/23 1459 10/05/23 0603 10/04/23 2246 SODIUM mmol/L 137 -- 134 POTASSIUM mmol/L 4.5 -- 4.1 CHLORIDE mmol/L 99 -- 97* CO2 mmol/L 21* -- 25 BUN mg/dL 60* -- 58* CREATININE mg/dL 7.53* 7.09* 6.90* CALCIUM mg/dL 8.4* -- 8.7 PHOSPHORUS mg/dL 8.2* -- -- MAGNESIUM mg/dL 1.8 -- 1.3* Results from last 7 days Lab Units 10/05/23 1459 10/05/23 0603 10/04/23 2246 WBC X10E9/L 7.8 -- 8.3 HEMOGLOBIN g/dL 8.6* 8.2* 8.9* HEMATOCRIT % 25.8* 24.5* 26.6* PLATELETS X10E9/L 163 135* 160 Results from last 7 days Lab Units 10/05/23 1459 10/04/23 2246 MAGNESIUM mg/dL 1.8 1.3* Lab Results Component Value Date CALCIUM 8.4 (L) 10/05/2023 Lab Results Component Value Date IRON 117 09/21/2023 TIBC 462 (H) 09/21/2023 FERRITIN 114 09/23/2023 Imaging Studies: IMPRESSION: * Mild congestion improved from previous with persistent large consolidation and effusion obscuringthe left mid and lower hemithorax. IMPRESSION 1. Acute kidney injury : The differential includes: 1. Ischemic acute tubular necrosis secondary to shock 2. Infection related acute tubular necrosis 3. Adverse effect of the Rangel inhibitor lisinopril 2. Shock: Hypovolemic versus septic shock: Requiring low-dose norepinephrine 0.02 micrograms/kilogram per minute. 3. Anion gap metabolic acidosis in the setting of acute kidney injury and possible starvation ketosis. 4. Pyuria: Urinary tract infection to be excluded 5. Chronic obstructive pulmonary disease on home oxygen 6. History of congestive heart failure with preserved EF ejection fraction 50- 55% cardiac echo July2023 7. Recent history of urinary retention with acute kidney injury, resolved 8. History of atherosclerotic coronary artery disease with history of non ST segment elevation myocardial infarction status post coronary artery bypass grafting and stenting in the past unknown anatomy. 9. Anemia of uncertain etiology 10. Nephrolithiasis with nonobstructing renal stones 11. Recent possible Proteus mirabilis UTI but urinalysis at that time was not consistent with urinary tract infection September 21, 2023. Nonetheless he did receive a course of ciprofloxacin which had been ordered for 10 days. 12. History of methicillin-resistant Staphylococcus aureus bacteremia July of 2023 he completed a 28 day course of vancomycin. Source was not determined. Transesophageal echocardiogram did not show endocarditis. 13. Obstructive sleep apnea 14. Obesity 15. Type 2 diabetes mellitus RECOMMENDATIONS 1. Discontinue lisinopril Farxiga Lasix etc. as you have done 2. Agree with broad-spectrum antibiotics for possible left lower lobe pneumonia. 3. CKD serologies 4. Titrate pressors to maintain mean arterial blood pressure of 65 mm of mercury or greater 5. IV fluids with alkali 6. Phosphorus binder 7. Hemodialysis for volume and solute control Discussed with ICU team SADAF LLOYD MD,PhD. [facility] ANY QUESTIONS FEEL FREE TO CALL: 1. OFFICE [phone] 2. ANSWERING SERVICE: [phone] documented in this encounterOhioHealth [facility]08-15-2024 Procedure note* Candy Valentin RN - 10/06/2023 4:06 PM EDTAssociated Order(s): HEMODIALYSIS INPATIENT Dialysis completed with 1.9 liters removed, post weight 102 kg. Received 3 doses of albumin and oneMidodrine for bp support. Levophed also was titrated up per FACETOR but able to return to previous rate at the end of HD. NIKKI functioned well. Pt had one episode of nausea with hypotension which subsided once bp improved. No other issues. * Monserrat Zamora RN - 10/05/2023 11:49 PM EDTAssociated Order(s): HEMODIALYSIS INPATIENT Pt's first HD treatment, completed 3 hour HD treatment. Pt tolerated well. Pt was hypotensive beginning of treatment. Pt was given 10 mg of midodrine pre and mid treatment. BP stable rest of treatment. Pt's catheter functioned well at 300 BFR. Post BP 125/75 Post weight 104.9kg per bed scale Fluid removal per bed scale .7kg, per machine net removal of 2019. documented in this encounterOhioHealth [facility]08-14-2024 Emergency department Note* Kirsty Mazariegos RN - 10/05/2023 1:44 PM EDT Director Of Brand Marketing notified providers of diminished urine output <40mLs, elevated BNP and kidney levels. Director Of Brand Marketing inquired about lasix and nephro consult. Providers verbalized understanding. No new orders placed at this time. * Kirsty Mazariegos RN - 10/05/2023 1:00 PM EDT Director Of Brand Marketing inquired about art line for labile BP and possibility of central line, per providers if pt should need central line or art line they will place it. * Kirsty Mazariegos RN - 10/05/2023 12:53 PM EDT Director Of Brand Marketing placed meal tray order for pt. * Kirsty Mazariegos RN - 10/05/2023 12:[address] Alfaro pt ok to order food. * Kirsty Mazariegos RN - 10/05/2023 12:17 PM EDT BISHOP Srinivasan at bedside for US IV. * Kirsty Mazariegos RN - 10/05/2023 11:50 AM EDT Director Of Brand Marketing spoke with resident r/t levo orders, reported pt's BP at this time. Director Of Brand Marketing inquired about possibility of midodrine before going to levo d/t pt's labile BP. Resident reports he will speak with attending and place orders as appropriate. * Eunice Suarez RN - 10/05/2023 11:36 AM EDT Bed: 31 Expected date: Expected time: Means of arrival: Comments: B3 Craft * Skyler Alfaro, DO - 10/05/2023 11:30 AM EDTAssociated Order(s): Critical Care Images from the original note were not included. History Chief Complaint Patient presents with Shortness of Breath Brian is 73 y.o. male presents to the emergency department with CC of Shortness of Breath. He is a transfer from [facility]. Patient arrived to [facility] by EMS from home with some shortness of breath he has had for several days. He states he had a similar episode recently and was found thathe had low hemoglobin and had to be transfused. He does have history of COPD and is on 2 L of oxygen. He had a non-STEMI in June with CABG. He denies chest pain and fever. He states that he has chronic cough that got worse in the last week. Patient was seen at [facility] and stayed there overnight. Hemoglobin was 8.9 yesterday and 8.2 this morning. He was found to have creatinine of 6.9 yesterday and 7 point 0 9 this morning. Potassium was normal. BNP was 833. Troponins were 21 and 23. Initial la ctate was 2.7. Flu, COVID, RSV came back negative. CT of the chest showed moderately large pleural effusion and/or pneumonia. CT abdomen and pelvis was unremarkable. He has a past medical history of Acute coronary syndrome ([facility]), Anxiety disorder, Chronic obstructive asthma with exacerbation [place] COPD (chronic obstructive pulmonary disease) [place] Diabetes mellitus type 2, controlled ([facility]), Essential hypertension, Folate deficiency anemia, Heart failure ([facility]), Megaloblastic anemia, Muscle weakness (generalized), Myocardial infarct ([facility]), Obesity, Obstructive sleep apnea, SARAH (obstructive sleep apnea), Pancytopenia (CMS-HCC), Presence of coronary artery bypass graft stent, and Supplemental oxygen dependent. He has a past surgical history that includes Cardiac surgery. Current Facility-Administered Medications: cefTRIAXone (ROCEPHIN) 1,000 mg in sodium chloride 0.9 %50 mL IVPB-MBP, 1,000 mg, intravenous, Once, Skyler Alfaro, norepinephrine (LEVOPHED) infusion 8 mg/250 mL in sod chlor 0.9% (0.032 mg/mL PMX), 0.01-0.4 mcg/kg/min, intravenous, Continuous, Betty Chamberlain MD Current Outpatient Medications: acetaminophen (TYLENOL) 325 mg tablet, Take 2 tablets (650 mg total) by mouth every 8 (eight) hours as needed for pain., Disp: , Rfl: albuterol (PROVENTIL,VENTOLIN) 2.5 mg /3 mL (0.083 %) nebulizer solution, Inhale 3 mL (2.5 mg total) by nebulization every 6 (six) hours as needed for wheezing. Patient takes it every 2 hours, Disp: , Rfl: aspirin 81 mg, Take 1 tablet (81 mg total) by mouth in the morning., Disp: , Rfl: benzonatate (TESSALON PERLES) 200 mg capsule,Take 1 capsule (200 mg total) by mouth 3 (three) times a day as needed for cough., Disp: 20 capsule, Rfl: 0 dapagliflozin propanediol (FARXIGA) 10 mg tablet, Take 1 tablet (10 mg total) by mouth in the morning., Disp: 30 tablet, Rfl: 0 folic acid (FOLVITE) 1 mg tablet, Take 1 tablet (1 mg total) bymouth in the morning., Disp: , Rfl: furosemide (LASIX) 20 mg tablet, Take 1 tablet (20 mg total) bymouth 2 (two) times a day before meals., Disp: 30 tablet, Rfl: 0 lisinopriL (PRINIVIL,ZESTRIL) 2.5 mg tablet, Take 1 tablet (2.5 mg total) by mouth in the morning., Disp: , Rfl: melatonin (CIRCADIN) tablet, Take 2 tablets (6 mg total) by mouth nightly., Disp: , Rfl: metFORMIN XR (GLUCOPHAGE XR) 750mg 24 hr tablet, Take 1 tablet (750 mg total) by mouth nightly., Disp: , Rfl: metoprolol (LOPRESSOR) 12.5 mg, Take 1 split tablet (12.5 mg total) by mouth in the morning and 1 split tablet (12.5 mg to kenji) before bedtime., Disp: , Rfl: nitroglycerin (NITROSTAT) 0.4 MG SL tablet, Place 1 tablet (0.4 mg total) under the tongue every 5 (five) minutes as needed for chest pain., Disp: , Rfl: PARoxetine(PAXIL) 10 mg tablet, Take 1 tablet (10 mg total) by mouth every morning., Disp: , Rfl: pioglitazone (ACTOS) 30 mg tablet, Take 1 tablet (30 mg total) by mouth in the morning., Disp: , Rfl: simethicone (MYLICON) 80 mg chewable tablet, Chew 1 tablet (80 mg total) and swallow every 6 (six) hours as needed for flatulence., Disp: , Rfl: simvastatin (ZOCOR) 40 mg tablet, Take 1 tablet (40 mg total) bymouth nightly., Disp: , Rfl: sodium chloride 0.9 % injection, Infuse 10 mL into a venous catheter every 12 (twelve) hours., Disp: 280 mL, Rfl: 0 sodium chloride 0.9 % injection, Infuse 10 mL into a venous catheter as needed for line care., Disp: 100 mL, Rfl: 0 sodium chloride 0.9 % injection, Infuse 10 mL into a venous catheter as needed for line care (before and after each intermittent use)., Disp: 140 mL, Rfl: 0 ticagrelor (BRILINTA) 90 mg tablet, Take 1 tablet (90 mg total) by mouth every 12(twelve) hours., Disp: , Rfl: Shortness of Breath Problem List Items Addressed This Visit None Past Medical History: Diagnosis Date Acute coronary syndrome [place] Anxiety disorder Chronic obstructive asthma with exacerbation [place]) COPD (chronic obstructive pulmonary disease) ([facility]) Diabetes mellitus type 2, controlled ([facility]) Essential hypertension Folate deficiency anemia Heart failure ([facility]) Megaloblastic anemia Muscle weakness (generalized) Myocardial infarct ([facility]) Obesity Obstructive sleep apnea SARAH (obstructive sleep apnea) Pancytopenia (CMS-HCC) Presence of coronary artery bypass graft stent Supplemental oxygen dependent Past Surgical History: Procedure Laterality Date CARDIAC SURGERY Travel Screening Question Response Have you been in contact with someone who was sick? No / Unsure Do you have any of the following new or worsening symptoms? None of these Have you traveled internationally or domestically in the last month? No Travel History Travel since 09/04/23 No documented travel since 09/04/23 Family History Problem Relation Age of Onset Diabetes Mother Stroke Mother Cancer Mother Heart attack Mother Heart attack Father Stroke Father Diabetes Father Cancer Father Social History Substance and Sexual Activity Drug Use Never Social History Tobacco Use Smoking status: Never Smokeless tobacco: Never Substance Use Topics Alcohol use: Not Currently Comment: last drink 2003 Drug use: Never Review of Systems Constitutional: Positive for activity change. HENT: Negative. Eyes: Negative. Respiratory: Positive for shortness of breath. Cardiovascular: Negative. Gastrointestinal: Negative. Endocrine: Negative. Genitourinary: Negative. Musculoskeletal: Negative. Skin: Negative. Allergic/Immunologic: Negative. Neurological: Negative. Hematological: Negative. Psychiatric/Behavioral: Negative. Physical Exam ED Triage Vitals [10/05/23 1106] Temp Heart Rate Resp BP SpO2 37 C (98.6 F) 63 22 (!) 90/34 (!) 89 % Temp Source Heart Rate Source Patient Position BP Location FiO2 (%) Oral -- -- Left arm -- Vitals: 10/05/23 1106 10/05/23 1110 BP: (!) 90/34 Temp: 37 C (98.6 F) TempSrc: Oral Pulse: 63 Resp: 22 SpO2: (!) 89% 95% Height: 152.4 cm (5') Weight: 106.1 kg (234 lb) Physical Exam Vitals and nursing note reviewed. Constitutional: General: He is not in acute distress. Appearance: Normal appearance. He is obese. He is not ill-appearing, toxic- appearing or diaphoretic. HENT: Head: Normocephalic. Right Ear: External ear normal. Left Ear: External ear normal. Eyes: Pupils: Pupils are equal, round, and reactive to light. Cardiovascular: Rate and Rhythm: Normal rate and regular rhythm. Heart sounds: No murmur heard. No friction rub. No gallop. Pulmonary: Effort: No respiratory distress. Breath sounds: No stridor. Examination of the right-lower field reveals decreased breath sounds. Examination of the left-lower field reveals decreased breath sounds. Decreased breath sounds present. No wheezing, rhonchi or rales. Abdominal: General: Abdomen is flat. Bowel sounds are normal. Palpations: Abdomen is soft. Tenderness: There is no abdominal tenderness. Musculoskeletal: General: Normal range of motion. Cervical back: Normal range of motion. Right lower leg: No edema. Left lower leg: No edema. Comments: Trace edema in both lower extremities Skin: General: Skin is warm and dry. Capillary Refill: Capillary refill takes less than 2 seconds. Neurological: General: No focal deficit present. Mental Status: He is alert and oriented to person, place, and time. Psychiatric: Mood and Affect: Mood normal. Behavior: Behavior normal. Procedure Critical Care Performed by: Skyler Alfaro DO Authorized by: Skyler Alfaro DO Critical care provider statement: Critical care time (minutes): 33 Critical care time was exclusive of: Separately billable procedures and treating other patients andteaching time Critical care was necessary to treat or prevent imminent or life-threatening deterioration of the following conditions: Circulatory failure and shock Critical care was time spent personally by me on the following activities: Ordering and performing treatments and interventions, ordering and review of laboratory studies, ordering and review of radiographic studies, development of treatment plan with patient or surrogate, evaluation of patient's response to treatment, examination of patient, obtaining history from patient or surrogate, review ofold charts and re-evaluation of patient's condition I assumed direction of critical care for this patient from another provider in my specialty: no Care discussed with: admitting provider Re-Evaluation Re-Evaluation ED Course ED Course as of 10/05/23 1402 TueOct 05, 2023 1401 I reviewed the patient's records: Patient was seen at [facility] starting yesterday and boarded there overnight. I was treated for acute kidney injury. Hemoglobin was 8.9 yesterday and 8.2 this morning. came in complaining of shortness of breath. Was found to have an acute kidney injury. His creatinine was 6.9 yesterday. Normal potassium. Creatinine was 7.09 this morning on recheck. BNP was elevated at 133. Troponins were 21 and 23 at 0 and 1 hour respectively. Initial lactate was 2.7. Flu, COVID, RSV testing was negative. CT of the chest showed a moderate size left pleural effusion and/or pneumonia. Also showed a pulmonary nodule. CT abdomen and pelvis was unremarkable at that time. These were both noncontrast scans. Was sent here for persistent hypotension. Central line placement was attempted there. Was not successful. [DW] ED Course User Index [DW] Skyler Alfaro, Clinical Impressions as of 10/05/23 1402 Shock ([facility]) Acute kidney injury ([facility]) MDM Medical Decision Making Amount and/or Complexity of Data Reviewed Radiology: ordered. ECG/medicine tests: ordered. Risk Prescription drug management. Decision regarding hospitalization. ----- I, Aishwarya Dover (scribe), documented on behalf of Dr. Ariana Alfaro. 11:30 AM Brian Mandel is a 73 y.o. M presenting to the ED for chief complaint of shortness of breath. Dr. Ariana Alfaro personally saw and evaluated the patient. Dr. Ariana Alfaro discussed the management with theAPP/ Resident and takes responsibility for the medical care of this patient. Exam findings as follows: Constitutional: Awake and alert HENT: Normocephalic and atraumatic Eyes: Conjunctiva unremarkable Cardiovascular: Heart rate regular Pulmonary: Easy work of breathing, speaking in full sentences, decrease lung sounds in left base Abdominal: Flat and non-distended Skin: Warm and dry Musculoskeletal: Moving all extremities spontaneously, edema in both legs Medical decision-making: Patient arrives as a transfer from [facility] with concerns for shortness of breath, acute renal failure, pleural effusion on the left, possible pneumonia, and hypotension. Patient was never started on any pressors there. Was transferred ER to ER with concerns for decompensation after an overnight stay in the ER waiting for a bed to open up here. Central line placement was attempted by the ER physician and [facility], but was not successful. Patient arrived here hypotensive, but mentating clearly. Levophed infusion was ordered at the time to be started peripherally. Before the Levophed was started, patient did have improvement in his blood pressure for a time. Ultimately t lidia, blood pressure is once again dropped and Levophed was started peripherally. 1:[address] Ariana Alfaro discussed all relevant aspects of the pt's care with Summer Rincon from the ICU team. They accept the pt for admission under Dr. Mccarthy. RESULTS Labs: Labs Reviewed - No data to display Radiology: X-ray chest 1 view Result Date: 10/05/2023 History: Known pleural effusion, reassess severity Exam/Technique: AP view of the chest. XR CHEST 1VW Comparison: Recent studies Findings: The heart mediastinum are grossly stable however left hemithorax and heart border obscured by overlapping disease. Mild congestion improved from 09/08/2023. No focal right lung disease. Persistent consolidation and suspected effusion left mid and lower lung. IMPRESSION: * Mild congestion improved from previous with persistent large consolidation and effusionobscuring the left mid and lower hemithorax. Finalized by Soham Chatman DO on 10/05/2023 12:[address] abdomen and pelvis without contrast Result Date: 10/05/[address] abdomen and pelvis, 10/04/2023. History: Acute abdominal pain Comparison: CT abdomen and pelvis 09/21/2023. Technique: Multiple contiguous 5 mm axial images were acquired from the lung bases through the ischial tuberosities. Coronal and sagittal reconstructions were performed. Automated exposure control was utilized. Findings: For evaluation of the intrathoracic structures, please refer to report from concurrent chest CT. Evaluation of abdominal structures compromised by absence ofIV contrast. Redemonstration of lobulated contour of the liver without discrete mass or intrahepatic biliary ductal dilatation. Normal gallbladder. Pancreas, spleen and adrenal glands are unremarkable. Nonobstructing bilateral renal calculi with the largest stone located in the left renal pelvis measuring up to 1.7 cm. No hydronephrosis or perinephric fluid collection. Urinary bladder is incompletely distended. Prostate is normal in size with coarse calcification noted. Bowel demonstrates no obstruction or acute inflammatory change. Normal appendix. No free air or fluid. No mesenteric lymph node enlargement. 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 No retroperitoneal or pelvic lymphadenopathy. Fat-containing bilateral inguinal hernias. Significant degenerative disc disease at L5-S1. No acute osseous abnormality. IMPRESSION: * No acute pathologic process. * Nonobstructing bilateral renal calculi. All CT scans at this facility use dose modulation, iterative reconstruction, and/or weight based dosing when appropriate to reduce radiation dose to as low as reasonably achievable. Finalized by Braulio De Anda MD on 10/05/2023 12:[address] chest without contrast Result Date: 10/05/[address] on 10/04/2023 HISTORY: Shortness of breath, pain COMPARISON: CT abdomen and pelvis 09/21/2023 TECHNIQUE: Multiple contiguous 2.5 mm axial images of the chest were obtained. Coronaland sagittal 2-D reconstructions were performed. Automated exposure control was utilized. FINDINGS:Normal caliber thoracic aorta with moderate atherosclerotic calcification. Pulmonary artery is normal in caliber. Heart size is enlarged with severe coronary artery calcifications noted. Valvular calcifications are present. Postoperative changes compatible with CABG. No pericardial effusion. No pathologically enlarged mediastinal lymph nodes. Moderate-sized left pleural effusion with significant a ssociated consolidative change in the left upper and lower lobes. There is a solid 5 mm pulmonary nodule in the right lower lobe along the major fissure. No pneumothorax. Central airways are patent. No chest wall lymphadenopathy. For evaluation of abdominal structures, please refer to report from concurrent CTA abdomen and pelvis. No acute osseous abnormality. IMPRESSION: * Moderate-sized left pleural effusion with associated atelectasis and/or pneumonia. * Indeterminate solid pulmonary nodule measuring less than 6 mm. In a low-risk patient with a solid nodule <6 mm, recommend no follow-up. In a high-risk patient, CT at 12 months is optional with stronger consideration if there is suspicious nodule morphology and/or upper lobe location. All CT scans at this facility use dose modulation, iterative reconstruction, and/or weight based dosing when appropriate to reduce radiation dose to as low as reasonably achievable. Seymour Garcia et al. Guidelines for Management of Incidental Pulmonary Nodules Detected on CT Images: From the Fleischner Society 2017. Radiology. 2017 Umesh;284(1):228-243. Finalized by Braulio De Anda MD on 10/05/2023 12:07 AM NURSING NOTES AND VITALS REVIEWED The nursing notes within the ED encounter and vital signs as below have been reviewed. BP 106/87 Pulse 63 Temp 37 C (98.6 F) (Oral) Resp 22 Ht 152.4 cm (5') Wt 106.1 kg (234 lb) SpO2 100% BMI 45.70 kg/m PROGRESS NOTES The plan of care has been discussed with patient including today s results, in addition to providing specific details regarding counseling pertaining to the diagnosis and prognosis. All questions were answered at this time and they are agreeable with the plan ADDITIONAL PROVIDER NOTES At this time the patient has objective evidence of an acute process requiring hospitalization or inpatient management. Medications norepinephrine (LEVOPHED) infusion 8 mg/250 mL in sod chlor 0.9% (0.032 mg/mL PMX) (0.04 mcg/kg/jgo627.1 kg intravenous New Bag 10/05/23 2228) cefTRIAXone (ROCEPHIN) 1,000 mg in sodium chloride 0.9 % 50 mL IVPB-MBP (0 mg intravenous Stop Bag 10/05/23 1237) Medication List None Diagnosis: 1. Shock ([facility]) 2. Acute kidney injury [place] Disposition: Patient's disposition: Admit Patient's condition is stable. Critical Care time: 33 minutes ----- Provider Statement By electronically signing this emergency patient record, the Emergency Physician/RDA/PA-C attests that all entries made into the electronic medical record by hayes Navarrete prior to the Physician/RDA/PA-C signature reflect an accurate accounting of the evaluation and care rendered by that Emergency Physician/RDA/PA-C. The Emergency Physician/RDA/PA-C assumes full responsibility for those entries.The Emergency Physician/RDA/PA-C also attests that any patient testing or treatment that was instituted by nursing staff in accordance to Emergency Department Preemptive Guidelines have been reviewed and unless so stated elsewhere in this patient chart, the Physician/RDA/PA-C agrees with the testing and care provided. Provider Statement I performed a history and physical exam on this patient and discussed his or her management with the resident. I reviewed the residents's note and agree with the documented findings and plan of care with the following exceptions: None Provider Statement: By electronically signing this emergency patient record, the Emergency Physician/RDA/PA-C attests that all entries made into the electronic medical record by the scribe prior to the Physician/RDA/PA-C signature reflect an accurate accounting of the evaluation and care rendered by that Emergency Physic khalida/RDA/PA-C. The Emergency Physician/RDA/PA-C assumes full responsibility for those entries. Aishwarya Dover 10/05/23 1132 Betty Chamberlain MD Resident 10/05/23 1201 Shiv Robles 10/05/23 1350 Shiv Robles 10/05/23 1356 Skyler Alfaro DO 10/05/23 1516 * Judi Avila RN - 10/05/2023 11:04 AM EDT Patient presents to ed via PTN from [facility] for admission for acute kidney injury and possible dialysis. Patient arrives hypotensive. Patient is in no distress. * Eunice Suarez RN - 10/05/2023 10:54 AM EDT Bed: B3 Expected date: Expected time: Means of arrival: [facility] Comments: 73 y/o Male Transfer from [facility] @ [address] 96% on 2 liters BP 96/42 Normally low on BP Eta 10 mins Brian Mandel 73 yrs M (1950) Originally admitted under hospitalist for CRISTINE. Worsening labs and liable BP's was prompt to go ER to ER Dr Alfaro accepting ER to ER transfer. Dr Rincon (critical care) aware of this patient. Patient does not meet critical care need at this time d/t no pressors and on 3 L O2 If patient arrives on pressors/needs pressors, Dr Rincon is willing to b e consulted on this patient. Vitals: 07:00 - BP 86/41, HR, 61, RR 18, 98% 3 L O2 Vitals: 08:00 - BP 71/39, HR 60, RR 19, 98% 3 L O2 Has Call and only PIVs. Sending MD unable to place central line. [facility] History and physical note* Kylee Ramirez MD - 10/05/2023 1:42 PM EDT Images from the original note were not included. Adult ICU History & Physical Patient - Brian Mandel Age - 73 y.o. - 1950 Date of Admission - 10/05/2023 10:53 AM Chief Complaint Shortness of breath History of Present Illness Brian Mandel is a 73 y.o. male with a history of COPD (on home 2L O2), HTN, HLD, T2DM (09/22/23 A1c 5.5), Aortic stenosis, macrocytic anemia, CAD c/b NSTEMI in 06/2023 s/p CABG, Chronic diastolic HF on GDMT with recent admission 2/2 acute exacerbation on 09/11/23 (07/2023 TTE with LVEF 50-55%, mod-sev AR, mild- mod TR), recent MRSA bacteremia (07/2023). Of note, he has a recent history of CRISTINE. He was recently admitted in on 09/21/2023 for CRISTINE. At that time, he complained of progressively worsening frequency and dysuria. He endorsed a remote history of nephrolithiasis and was noted to have urinary retention (466 per bladder scan)/ labs notable Creatinine 1.70 BUN 28 GFR 42 lactate 3.3. Urine culture during admission was notable for Proteus mirabilis. He was discharged on hospital day 3 with cipro 500mg BID [id number] and schedules followup with urology. He presented to the ED on night of 10/04/2023 with chief complaint of shortness of breath for the last several days that he thought was secondary to his anemia. He also endorsed chronic cough worsening over the last week as well as watery diarrhea (3 times overnight) and vomiting (3 episodes). Hemoglobin was stable around 8. He had significantly elevated and uptrending creatinine (6.9 0->7.09). UA notable for moderate leukocyte esterase, trace ketonuria, calcium oxalate crystals present. BNPwas 833. Troponin's mildly elevated at 21->23. Lactate mildly elevated at 2.7. Flu, COVID, RSV negative. CT of the chest showed moderately large pleural effusion and/or pneumonia. CTA/P unremarkable. He was presumed to have community-acquired pneumonia and so was treated with azithromycin/ceftriaxone. However, he developed hypotension, was given 1 L LR bolus, requiring pressors (Levo 0.04). Given his pressor requirements, patient was admitted to ICU. Upon presentation he was hypotensive at 87/44 on Levophed 0.04. However he was had no complaints and was asymptomatic, and in no acute distress. He was A&O x4 and conversational.Given his recent history of CRISTINE and significantly elevated and uptrending creatinine, Nephrology was consulted for consideration of emergent hemodialysis. Of note, central line was attempted and failed while patient was in the ED, therefore if patient needs dialysis, will tentatively plan on IR consult for tunneled catheter. Past Medical History: Past Medical History: Diagnosis Date Acute coronary syndrome ([facility] Anxiety disorder Chronic obstructive asthma with exacerbation ([facility]) COPD (chronic obstructive pulmonary disease) ([facility] Diabetes mellitus type 2, controlled ([facility] Essential hypertension Folate deficiency anemia Heart failure ([facility]) Megaloblastic anemia Muscle weakness (generalized) Myocardial infarct ([facility]) Obesity Obstructive sleep apnea SARAH (obstructive sleep apnea) Pancytopenia ([facility]) Presence of coronary artery bypass graft stent Supplemental oxygen dependent Past Surgical History: Past Surgical History: Procedure Laterality Date CARDIAC SURGERY Home Medications: Prior to Admission medications Medication Sig Start Date End Date Taking? Authorizing Provider acetaminophen (TYLENOL) 325 mg tablet Take 2 tablets (650 mg total) by mouth every 8 (eight) hours as needed for pain. Not In System Ref Prov albuterol (PROVENTIL,VENTOLIN) 2.5 mg /3 mL (0.083 %) nebulizer solution Inhale 3 mL (2.5 mg total)by nebulization every 6 (six) hours as needed for wheezing. Patient takes it every 2 hours Not In System Ref Prov aspirin 81 mg Take 1 tablet (81 mg total) by mouth in the morning. Not In System Ref Prov benzonatate (TESSALON PERLES) 200 mg capsule Take 1 capsule (200 mg total) by mouth 3 (three) timesa day as needed for cough. 07/27/23 Maggie Cruz APRN-SHERIDAN dapagliflozin propanediol (FARXIGA) 10 mg tablet Take 1 tablet (10 mg total) by mouth in the morning. 09/12/23 Maggie Cruz APRN-SHERIDAN folic acid (FOLVITE) 1 mg tablet Take 1 tablet (1 mg total) by mouth in the morning. Not In System Ref Prov furosemide (LASIX) 20 mg tablet Take 1 tablet (20 mg total) by mouth 2 (two) times a day before meals. 09/11/23 APRIL Agrawal lisinopriL (PRINIVIL,ZESTRIL) 2.5 mg tablet Take 1 tablet (2.5 mg total) by mouth in the morning. Not In System Ref Prov melatonin (CIRCADIN) tablet Take 2 tablets (6 mg total) by mouth nightly. Not In System Ref Prov metFORMIN XR (GLUCOPHAGE XR) 750 mg 24 hr tablet Take 1 tablet (750 mg total) by mouth nightly. NotIn System Ref Prov metoprolol (LOPRESSOR) 12.5 mg Take 1 split tablet (12.5 mg total) by mouth in the morning and 1 split tablet (12.5 mg total) before bedtime. Not In System Ref Prov nitroglycerin (NITROSTAT) 0.[address] 1 tablet (0.4 mg total) under the tongue every 5 (five) minutes as needed for chest pain. Not In System Ref Prov PARoxetine (PAXIL) 10 mg tablet Take 1 tablet (10 mg total) by mouth every morning. Not In System Ref Prov pioglitazone (ACTOS) 30 mg tablet Take 1 tablet (30 mg total) by mouth in the morning. Not In System Ref Prov simethicone (MYLICON) 80 mg chewable tablet Chew 1 tablet (80 mg total) and swallow every 6 (six) hours as needed for flatulence. Not In System Ref Prov simvastatin (ZOCOR) 40 mg tablet Take 1 tablet (40 mg total) by mouth nightly. Not In System Ref Prov sodium chloride 0.9 % injection Infuse 10 mL into a venous catheter every 12 (twelve) hours. 07/27/23Kydarrin Toddzer, PER DIEM PHYSICAL THERAPIST ASSISTANT-RN REFERRAL sodium chloride 0.9 % injection Infuse 10 mL into a venous catheter as needed for line care. 07/27/23Kydarrin Toddzer, PER DIEM PHYSICAL THERAPIST ASSISTANT-RN REFERRAL sodium chloride 0.9 % injection Infuse 10 mL into a venous catheter as needed for line care (beforeand after each intermittent use). 07/27/23 Maggie Cruz, PER DIEM PHYSICAL THERAPIST ASSISTANT-RN REFERRAL ticagrelor (BRILINTA) 90 mg tablet Take 1 tablet (90 mg total) by mouth every 12 (twelve) hours. Not In System Ref Prov Allergies: Patient has no known allergies. Social History: reports that he has never smoked. He has never used smokeless tobacco. He reports that he does not currently use alcohol. He reports that he does not use drugs. Family History: Family History Problem Relation Age of Onset Diabetes Mother Stroke Mother Cancer Mother Heart attack Mother Heart attack Father Stroke Father Diabetes Father Cancer Father Review of Systems: Review of Systems Constitutional: Positive for appetite change. Negative for chills, diaphoresis and fever. HENT: Negative. Negative for congestion, dental problem, drooling, sinus pressure and sinus pain. Eyes: Negative. Negative for photophobia, redness and itching. Respiratory: Positive for shortness of breath. Negative for apnea, choking and chest tightness. Shortness of breath at baseline given history of COPD Cardiovascular: Positive for leg swelling. Gastrointestinal: Positive for abdominal distention, diarrhea, nausea and vomiting. Negative for abdominal pain, anal bleeding, blood in stool and rectal pain. Endocrine: Negative for cold intolerance and heat intolerance. Genitourinary: Negative for difficulty urinating, dysuria, flank pain, penile discharge, penile pain, penile swelling and scrotal swelling. Oliguric Musculoskeletal: Negative for joint swelling, neck pain and neck stiffness. Skin: Positive for pallor. Negative for color change. Psychiatric/Behavioral: Negative for agitation, behavioral problems, confusion, decreased concentration and dysphoric mood. Physical Exam BP 129/75 Pulse 63 Temp 37 C (98.6 F) (Oral) Resp 22 Ht 152.4 cm (5') Wt 106.1 kg (234 lb) SpO2 100% BMI 45.70 kg/m No intake or output data in the 24 hours ending 10/05/23 1343 Respiratory Source: O2 Device: Nasal cannula Admission weight: 106.1 kg (234 lb) Physical Exam Constitutional: General: He is not in acute distress. Appearance: He is obese. He is not toxic-appearing or diaphoretic. HENT: Head: Normocephalic and atraumatic. Right Ear: External ear normal. Left Ear: External ear normal. Nose: Nose normal. Mouth/Throat: Mouth: Mucous membranes are moist. Pharynx: Oropharynx is clear. Eyes: Extraocular Movements: Extraocular movements intact. Conjunctiva/sclera: Conjunctivae normal. Pupils: Pupils are equal, round, and reactive to light. Cardiovascular: Rate and Rhythm: Normal rate and regular rhythm. Heart sounds: Murmur heard. Comments: Systolic ejection murmur Pulmonary: Effort: Pulmonary effort is normal. No respiratory distress. Comments: Pulmonary auscultation difficult secondary to body habitus Chest: Chest wall: No tenderness. Abdominal: General: There is distension. Tenderness: There is no abdominal tenderness. There is no right CVA tenderness, left CVA tendernessor guarding. Musculoskeletal: General: Swelling present. No tenderness, deformity or signs of injury. Cervical back: Normal range of motion. No rigidity or tenderness. Right lower leg: Edema present. Left lower leg: Edema present. Skin: General: Skin is warm. Coloration: Skin is pale. Skin is not jaundiced. Findings: No bruising or erythema. Neurological: General: No focal deficit present. Mental Status: He is alert and oriented to person, place, and time. Mental status is at baseline. Psychiatric: Mood and Affect: Mood normal. Behavior: Behavior normal. Thought Content: Thought content normal. Judgment: Judgment normal. Labs/Imaging Recent Results (from the past 24 hour(s)) Type and screen(includes indirect delfin) Collection Time: 10/04/23 10:30 PM Result Value Ref Range ABO A RH Positive Antibody Screen Negative CBC auto differential Collection Time: 10/04/23 10:46 PM Result Value Ref Range White Blood Cells 8.3 4.0 - 11.0 X10E9/L RBC count 2.69 (L) 4.10 - 5.70 X10E12/L Hemoglobin 8.9 (L) 13.0 - 17.0 g/dL Hematocrit 26.6 (L) 39 - 49 % MCV 99 80 - 100 fL MCH 33.2 27 - 34 pg MCHC 33.6 32 - 36 g/dL RDW 17.4 (H) 11.5 - 15.0 % Platelets 160 150 - 450 X10E9/L MPV 10.4 7 - 12 fL % neutrophils 73.6 % % lymphocytes 15.4 % % monocytes 8.4 % % eosinophils 1.1 % % Basophils 1.5 % Neutrophils Absolute (A) 6.1 1.5 - 6.6 X10E9/L Lymphocytes Absolute 1.3 1.0 - 3.5 X10E9/L Monocytes Absolute 0.7 0 - 0.9 X10E9/L Eosinophils Absolute 0.1 0.0 - 0.4 X10E9/L Basophils Absolute 0.1 0.0 - 0.2 X10E9/L Protime & INR Collection Time: 10/04/23 10:46 PM Result Value Ref Range Protime 12.9 9.8 - 13.2 sec Inr 1.1 0.8 - 1.1 APTT Collection Time: 10/04/23 10:46 PM Result Value Ref Range aPTT 33 26 - 37 sec B-type natriuretic peptide Collection Time: 10/04/23 10:46 PM Result Value Ref Range BNP 833 (H) <100.0 pg/mL Comprehensive metabolic panel Collection Time: 10/04/23 10:46 PM Result Value Ref Range Sodium 134 134 - 146 mmol/L Potassium, Bld 4.1 3.5 - 5.0 mmol/L Chloride 97 (L) 98 - 109 mmol/L CO2 25 22 - 32 mmol/L Anion gap 12 5 - 15 mmol/L BUN 58 (H) 5 - 27 mg/dL Creatinine 6.90 (H) 0.70 - 1.20 mg/dL Glucose 121 (H) 65 - 99 mg/dL Calcium 8.7 8.5 - 10.5 mg/dL Total Protein 7.3 6.0 - 8.0 g/dL Albumin 3.2 3.2 - 5.3 g/dL Alkaline Phosphatase 76 39 - 130 U/L AST 21 0 - 41 U/L ALT 15 0 - 40 U/L Total bilirubin 0.6 0.3 - 1.2 mg/dL eGFR (CKD-EPI)non-race dependent 8 (L) >59 ml/min/1.73sq.m D-Dimer Collection Time: 10/04/23 10:46 PM Result Value Ref Range D-dimer 339 (H) <255 ng/mL DDU Magnesium Collection Time: 10/04/23 10:46 PM Result Value Ref Range Magnesium 1.3 (L) 1.8 - 2.6 mg/dL Troponin I, High Sensitivity Collection Time: 10/04/23 10:46 PM Result Value Ref Range Troponin I, High Sensitivity 21 (H) <21 ng/L Lactate w/ Reflex Collection Time: 10/04/23 10:46 PM Result Value Ref Range Lactate w/ Reflex 2.7 (H) 0.4 - 2.0 mmol/L SARS/FLU A+B/RSV by NAAT/Molecular (M4RT Collection Tube) Collection Time: 10/04/23 11:07 PM Result Value Ref Range FLU A PCR Negative Negative^Negative FLU B PCR Negative Negative^Negative RSV by PCR Negative Negative^Negative SARS CoV 2 BY PCR Not Detected Not Detected^Not Detected Troponin I, High Sensitivity 1 Hour Collection Time: 10/04/23 11:49 PM Result Value Ref Range 1 Hour Trop I, High Sensitivity 23 (H) <21 ng/L Urinalysis Collection Time: 10/05/23 2:36 AM Result Value Ref Range Color YELLOW YELLOW^YELLOW Turbidity CLOUDY (A) CLEAR^CLEAR Specific gravity >1.030 1.003 - 1.035 Nitrite Negative Negative^Negative Ph urine 5.5 5.0 - 8.5 Leukocyte esterase MODERATE (A) Negative^Negative Protein >300 (A) Negative^Negative mg/dL Glucose, Ur Negative Negative^Negative mg/dL Ketones urine Trace (A) Negative^Negative mg/dL Urobilinogen 0.2 <1.1 eu/dL Bilirubin, urine Negative Negative^Negative Hemoglobin Large (A) Negative^Negative Granular Casts, UA 2 (H) 0 /lpf WBC 38 (H) 0 - 5 /hpf RBC 26 (H) 0 - 5 /hpf Squamous epithelium 6 (H) 0 - 5 /hpf Ca oxalate crystals PRESENT (A) NONE^NONE Renal Epithel, UA 2 (H) 0 /hpf Lactate Collection Time: 10/05/23 3:06 AM Result Value Ref Range Lactate 2.1 (H) 0.4 - 2.0 mmol/L Hemoglobin and hematocrit, blood Collection Time: 10/05/23 6:03 AM Result Value Ref Range Hemoglobin 8.2 (L) 13.0 - 17.0 g/dL Hematocrit 24.5 (L) 39 - 49 % Platelet count Collection Time: 10/05/23 6:03 AM Result Value Ref Range Platelets 135 (L) 150 - 450 X10E9/L MPV 10.8 7 - 12 fL Creatinine includes GFR, serum Collection Time: 10/05/23 6:03 AM Result Value Ref Range Creatinine 7.09 (H) 0.70 - 1.20 mg/dL eGFR (CKD-EPI)non-race dependent 7 (L) >59 ml/min/1.73sq.m Troponin I, High Sensitivity Collection Time: 10/05/23 6:03 AM Result Value Ref Range Troponin I, High Sensitivity 23 (H) <21 ng/L Protime & INR Collection Time: 10/05/23 6:03 AM Result Value Ref Range Protime 12.6 9.8 - 13.2 sec Inr 1.1 0.8 - 1.1 APTT Collection Time: 10/05/23 6:03 AM Result Value Ref Range aPTT 32 26 - 37 sec X-ray chest 1 view Result Date: 10/05/2023 History: Known pleural effusion, reassess severity Exam/Technique: AP view of the chest. XR CHEST 1VW Comparison: Recent studies Findings: The heart mediastinum are grossly stable however left hemithorax and heart border obscured by overlapping disease. Mild congestion improved from 09/08/2023. No focal right lung disease. Persistent consolidation and suspected effusion left mid and lower lung. IMPRESSION: * Mild congestion improved from previous with persistent large consolidation and effusionobscuring the left mid and lower hemithorax. Finalized by Soham Chatman DO on 10/05/2023 12:[address] abdomen and pelvis without contrast Result Date: 10/05/[address] abdomen and pelvis, 10/04/2023. History: Acute abdominal pain Comparison: CT abdomen and pelvis 09/21/2023. Technique: Multiple contiguous 5 mm axial images were acquired from the lung bases through the ischial tuberosities. Coronal and sagittal reconstructions were performed. Automated exposure control was utilized. Findings: For evaluation of the intrathoracic structures, please refer to report from concurrent chest CT. Evaluation of abdominal structures compromised by absence ofIV contrast. Redemonstration of lobulated contour of the liver without discrete mass or intrahepatic biliary ductal dilatation. Normal gallbladder. Pancreas, spleen and adrenal glands are unremarkable. Nonobstructing bilateral renal calculi with the largest stone located in the left renal pelvis measuring up to 1.7 cm. No hydronephrosis or perinephric fluid collection. Urinary bladder is incompletely distended. Prostate is normal in size with coarse calcification noted. Bowel demonstrates no obstruction or acute inflammatory change. Normal appendix. No free air or fluid. No mesenteric lymph node enlargement. 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 No retroperitoneal or pelvic lymphadenopathy. Fat-containing bilateral inguinal hernias. Significant degenerative disc disease at L5-S1. No acute osseous abnormality. IMPRESSION: * No acute pathologic process. * Nonobstructing bilateral renal calculi. All CT scans at this facility use dose modulation, iterative reconstruction, and/or weight based dosing when appropriate to reduce radiation dose to as low as reasonably achievable. Finalized by Braulio De Anda MD on 10/05/2023 12:[address] chest without contrast Result Date: 10/05/[address] on 10/04/2023 HISTORY: Shortness of breath, pain COMPARISON: CT abdomen and pelvis 09/21/2023 TECHNIQUE: Multiple contiguous 2.5 mm axial images of the chest were obtained. [place]and sagittal 2-D reconstructions were performed. Automated exposure control was utilized. FINDINGS:Normal caliber thoracic aorta with moderate atherosclerotic calcification. Pulmonary artery is normal in caliber. Heart size is enlarged with severe coronary artery calcifications noted. Valvular calcifications are present. Postoperative changes compatible with CABG. No pericardial effusion. No pathologically enlarged mediastinal lymph nodes. Moderate-sized left pleural effusion with significant a ssociated consolidative change in the left upper and lower lobes. There is a solid 5 mm pulmonary nodule in the right lower lobe along the major fissure. No pneumothorax. Central airways are patent. No chest wall lymphadenopathy. For evaluation of abdominal structures, please refer to report from concurrent CTA abdomen and pelvis. No acute osseous abnormality. IMPRESSION: * Moderate-sized left pleural effusion with associated atelectasis and/or pneumonia. * Indeterminate solid pulmonary nodule measuring less than 6 mm. In a low-risk patient with a solid nodule <6 mm, recommend no follow-up. In a high-risk patient, CT at 12 months is optional with stronger consideration if there is suspicious nodule morphology and/or upper lobe location. All CT scans at this facility use dose modulation, iterative reconstruction, and/or weight based dosing when appropriate to reduce radiation dose to as low as reasonably achievable. Seymour Garcia, et al. Guidelines for Management of Incidental Pulmonary Nodules Detected on CT Images: From the Fleischner Society 2017. Radiology. 2017 Umesh;284(1):228-243. Finalized by Braulio De Anda MD on 10/05/2023 12:07 AM Microbiology Results Procedure Component Value Units Date/Time Urine culture [[id number]] Collected: 10/05/23 0236 Specimen: Urine Updated: 10/05/23 1022 SARS/FLU A+B/RSV by NAAT/Molecular (M4RT Collection Tube) [[id number]] Collected: 10/04/232306 Specimen: Nasopharynx Updated: 10/05/23 0024 FLU A PCR Negative FLU B PCR Negative RSV by PCR Negative SARS CoV 2 BY PCR Not Detected Blood culture [[id number]] Collected: 10/04/232256 Specimen: Blood, Peripheral Draw Updated: 10/04/232315 Blood culture [[id number]] Collected: 10/04/232246 Specimen: Blood, Peripheral Draw Updated: 10/04/232315 ASSESSMENT Shock of unknown etiology requiring pressors possible urinary source given acutely elevated creatinine in setting of UA positive for leukocyte esterase and calcium oxalate crystals - further workup pending Recurrent CRISTINE with recent hospitalization (09/21/2023) notable for Proteus mirabilis. Current UA with calcium oxalate crystals - further workup pending Possible community-acquired pneumonia with CT showing moderate left pleural effusion and associatedatelectasis and/or pneumonia with consolidation as well as intermediate solid pulmonary nodule History of COPD on home oxygen (2L) Chronic medical problems: Essential hypertension Hyperlipidemia Type 2 diabetes (non-insulin dependent last A1c 5.5) NSTEMI status post CABG 07/2023 Chronic diastolic heart failure Remote history of nephrolithiasis History of anemia PLAN Admit to the ICU for further evaluation and management. Continue azithromycin/ceftriaxone for possible community-acquired pneumonia Urine Urea and Cr ordered for FeUrea calculation Continue infectious workup: Ucx ordered, Ucx ordered Nephrology consulted. Appreciate recs: Tentatively planning for IR consult if Trialysis/tunneled cath needed Continuous cardiac and SpO2 monitoring. Pressors as needed for MAP goal > 65. Replace electrolytes as needed per ICU protocols (K>4, P>3, Mg>2) Strict I/O. Resume home medications as indicated once home med rec is completed by RN. Pressor support: Levo Lines (location & placement): PIV, tentatively planning for Trialysis cath Call/PEG/Drains: Call DVT prophylaxis: SQH Diet: regular diet Code Status: Full This progress note was completed using a voice taffy puller system. Every effort was made to ensure accuracy. However, inadvertent computerized taffy puller errors may be present. Kylee Ramirez MD Internal Medicine - PGY1 10/05/23 1:43 PM Associated attestation - Gopal Mccarthy MD - 10/05/2023 5:27 PM EDT Attestation signed by 5:11 PM PULMONARY/CRITICAL CARE ATTENDING ATTESTATION: I,Gopal Mccarthy MD, have personally and independently examined the patient. I confirm the note and agree with the assessment and plan as documented by the resident. Please note there may be additional comments below. ADDITIONAL COMMENTS: This is 73-year-old male patient with multiple comorbidities was admitted to the ICU today due to ongoing hypotension that requires pressor support and worsening kidney function. Patient has history of COPD with chronic hypoxemic respiratory failure oxygen at 2 L, O2 stenosis and chronic diastolic heart failure. Patient went to [facility] yesterday and was found to have Cristine I with creatinine of 7. [place] was interested in the ER but they were unsuccessful. Currently patient on Levophed at 0.04mic, and he is awake alert and oriented. He is hungry and he tolerated p.o. diet. Patient had CT chest that showed left lower lobe consolidation and effusion, in addition to lung nodule. Patient also was found to have lactic acidosis and hypomagnesemia. Patient reported diarrhea recently and despite that he continued to take his hypertension medication. Acute kidney injury and this could be due to prerenal azotemia versus ATN. Anion gap metabolic acidosis Shock, of unclear etiology, requiring vasopressors COPD, no evidence of exacerbation Heart failure with preserved ejection fraction Chronic hypoxemic respiratory failure Continue IV hydration With start albumin Nephrology has been consulted, patient might need hemodialysis Start empiric antibiotics Titrate pressors to maintain map above 65 Continue oxygen to maintain O2 sat between 88 and 92% Closely monitor urine output Closely monitor electrolytes and replace as needed Hold antihypertensive medication Discussed with RN Total critical care time with this patient exceeded 35 minutes, includes complex decision making. The patient is at risk for further clinical decompensation. This time excluded performing procedures. Gopal Mccarthy MD. [facility] Pulmonary / Critical Care This note was created with the assistance of a speech-recognition program. Although the intention is to generate a document that reflects the content of the visit, no guarantees can be provided that every mistake has been identified and corrected by editing. [facility]* Sepideh Delarosa RN - 09/11/2023 12:30 PM EDT AVS reviewed with the patient and signed. All questions answered and concerns addressed. Meds reviewed that need to be picked up from the pharmacy and administration times. The need to make a follow up appt within one week with PCP and specialist reviewed. All belongings returned. IV removed and tele D/C. Pt transferred to w/c plus one assist. Pt wheeled to lobby for moss picker by staff. Transport being provided by family to home. [facility]* Sepideh Delarosa RN - 09/11/2023 12:30 PM EDT AVS reviewed with the patient and signed. All questions answered and concerns addressed. Meds reviewed that need to be picked up from the pharmacy and administration times. The need to make a follow up appt within one week with PCP and specialist reviewed. All belongings returned. IV removed and tele D/C. Pt transferred to w/c plus one assist. Pt wheeled to [facility] for moss picker by staff. Transport being provided by family to home. * Sepideh Delarosa RN - 09/11/2023 11:13 AM EDT Pt requesting to discharge with [facility]. RN faxed ([phone]) CRF, facesheet, andprovider Discharge note. documented in this encounterOhio[facility] Note* Sepideh Delarosa RN - 09/11/2023 11:13 AM EDT Pt requesting to discharge with [facility]. RN faxed ([phone]) CRF, facesheet, andprovider Discharge note. [facility] Hospital course Narrative* Julia Man MD - 09/11/2023 10:23 AM EDT Images from the original note were not included. [facility] Hospital Medicine Discharge Summary Patient: Brian Mandel Date of : 1950 Room: 218/ Encounter date: 09/11/23 DATE OF ADMISSION: 09/08/2023 DATE OF DISCHARGE:09/11/2023 DISCHARGE DIAGNOSES Principal Problem: Acute on chronic congestive heart failure, unspecified heart failure type ([facility]) Active Problems: Anxiety disorder Benign essential hypertension Chronic diastolic congestive heart failure ([facility]) Chronic respiratory failure with hypoxia ([facility]) 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 Dyslipidemia Gastroesophageal reflux disease without esophagitis Obstructive sleep apnea syndrome Type 2 diabetes mellitus with hyperglycemia, without long-term current use of insulin ([facility]) Pleural effusion, left [facility] PCP: Melanie Taylor, DO PROCEDURES None HOSPITAL COURSE SUMMARY Per HPI: Brian Mandel is a 73 y.o. male who presents with via EMS for evaluation of shortness of breath. Pt states that he has been having difficulty breathing with movement for a week. Pt states that he went to therapy for the breathing and that it's not helping anymore. Pt reports that he had a heart stent placed late July due to blockage. Pt denies being sick. Pt notes that he takes metoprolol. Pt notes that he is on 2L of oxygen and that breathing treatments help his breathing. Pt denies current chest pain. Pt was given full aspirin by EMS. Pt has no known drug allergies. ER Course: Labs notable for: BNP 518, RBC 2.25, Hemoglobin 7.6, Hematocrit 23.4. Imaging was independently viewed by Dr. Dumont and is notable for [id number] CHF with pleural effusions greater on the left, there appears to be asymmetric left basilar consolidation and volume loss. Agreeable with official radiologist read. Dr. Dumont reevaluated pt. Pt received lasix, had adequate urine output, and pt was ambulated with assistance and pt became severly dyspnic. Patient was here was seen by Cardiology. Case was reviewed and patient was started on Tradjenta. Patient was diuresed with IV Lasix and electrolytes were repleted. Patient had significant diuresis isfeeling better on day of discharge. Patient is on his normal 2 L of oxygen that he wears at home. Will discharge patient home with possible home health RN and aide. with Lasix 20 mg b.i.d. with BMP in 1 week to monitor electrolytes. 09/11/23, Hospital Day: 4 Interval History: Status: improved. No overnight events or new complaints. Good diuresis while here. Back to baseline. Review of Systems Constitutional: Negative for activity change, appetite change, fatigue and unexpected weight change. HENT: Negative for trouble swallowing. Respiratory: Negative for cough, sputum production, shortness of breath and wheezing. Cardiovascular: Negative for chest pain, palpitations and leg swelling. Gastrointestinal: Negative for abdominal pain, blood in stool, melena, constipation, diarrhea, nausea and vomiting. Genitourinary: Negative for difficulty urinating. Skin: Negative for color change and wound. Neurological: Negative for dizziness, seizures, speech difficulty and headaches. Psychiatric/Behavioral: Negative for sleep disturbance. Physical Exam BP 119/75 Pulse 61 Temp 36.7 C (98 F) (Oral) Resp 16 Ht 152.4 cm (5') Wt 101.7 kg (224 lb3.2 oz) SpO2 95% BMI 43.79 kg/m Intake/Output Summary (Last 24 hours) at 09/11/2023 1046 Last data filed at 09/11/2023 0721 Gross per 24 hour Intake 1115 ml Output 2400 ml Net -1285 ml Constitutional: Obese General: No acute distress. Cardiovascular: Rate and Rhythm: Normal rate and regular rhythm. Heart sounds: Normal heart sounds, S1 normal and S2 normal. Pulmonary: Oxygen at 2 L per nasal cannula Effort: Pulmonary effort is normal. Breath sounds: Normal breath sounds. Musculoskeletal: Right lower leg: Nonpitting edema. Left lower leg: Nonpitting edema. Skin: General: Skin is warm and dry. Coloration: Skin is pale. Neurological: General: No focal deficit present. Psychiatric: Mood and Affect: Mood normal. Behavior: Behavior normal. Labs Recent Results (from the past 48 hour(s)) Bedside Glucose *Place/Obtain serum glucose if >500(>600 [facility]) per glucometer. Collection Time: 09/09/23 11:19 AM Result Value Ref Range Bedside glucose 176 (H) 65 - 99 mg/dL Bedside Glucose *Place/Obtain serum glucose if >500(>600 MR[facility]) per glucometer. Collection Time: 09/09/23 11:49 AM Result Value Ref Range Bedside glucose 195 (H) 65 - 99 mg/dL Potassium Collection Time: 09/09/23 12:16 PM Result Value Ref Range Potassium, Bld 3.6 3.5 - 5.0 mmol/L Bedside Glucose *Place/Obtain serum glucose if >500(>600 MR[facility]) per glucometer. Collection Time: 09/09/23 4:33 PM Result Value Ref Range Bedside glucose 150 (H) 65 - 99 mg/dL Potassium Collection Time: 09/09/23 5:04 PM Result Value Ref Range Potassium, Bld 4.7 3.5 - 5.0 mmol/L Bedside Glucose *Place/Obtain serum glucose if >500(>600 [facility]) per glucometer. Collection Time: 09/09/23 9:48 PM Result Value Ref Range Bedside glucose 162 (H) 65 - 99 mg/dL Comprehensive metabolic panel Collection Time: 09/10/23 4:26 AM Result Value Ref Range Sodium 136 134 - 146 mmol/L Potassium, Bld 4.0 3.5 - 5.0 mmol/L Chloride 94 (L) 98 - 109 mmol/L CO2 33 (H) 22 - 32 mmol/L Anion gap 9 5 - 15 mmol/L BUN 23 5 - 27 mg/dL Creatinine 1.26 (H) 0.70 - 1.20 mg/dL Glucose 122 (H) 65 - 99 mg/dL Calcium 9.2 8.5 - 10.5 mg/dL Total Protein 7.7 6.0 - 8.0 g/dL Albumin 3.3 3.2 - 5.3 g/dL Alkaline Phosphatase 82 39 - 130 U/L AST 24 0 - 41 U/L ALT 16 0 - 40 U/L Total bilirubin 0.5 0.3 - 1.2 mg/dL eGFR (CKD-EPI)non-race dependent 59 (L) >59 ml/min/1.73sq.m Magnesium Collection Time: 09/10/23 4:26 AM Result Value Ref Range Magnesium 2.0 1.8 - 2.6 mg/dL CBC auto differential Collection Time: 09/10/23 4:26 AM Result Value Ref Range White Blood Cells 11.1 (H) 4.0 - 11.0 X10E9/L RBC count 2.34 (L) 4.10 - 5.70 X10E12/L Hemoglobin 8.0 (L) 13.0 - 17.0 g/dL Hematocrit 24.1 (L) 39 - 49 % MCV 103 (H) 80 - 100 fL MCH 34.2 (H) 27 - 34 pg MCHC 33.2 32 - 36 g/dL RDW 16.9 (H) 11.5 - 15.0 % Platelets 162 150 - 450 X10E9/L MPV 10.8 7 - 12 fL % neutrophils 81.0 % % lymphocytes 11.3 % % monocytes 6.7 % % eosinophils 0.6 % % Basophils 0.4 % Neutrophils Absolute (A) 9.0 (H) 1.5 - 6.6 X10E9/L Lymphocytes Absolute 1.3 1.0 - 3.5 X10E9/L Monocytes Absolute 0.7 0 - 0.9 X10E9/L Eosinophils Absolute 0.1 0.0 - 0.4 X10E9/L Basophils Absolute 0.0 0.0 - 0.2 X10E9/L Bedside Glucose *Place/Obtain serum glucose if >500(>600 MRH) per glucometer. Collection Time: 09/10/23 11:43 AM Result Value Ref Range Bedside glucose 119 (H) 65 - 99 mg/dL Bedside Glucose *Place/Obtain serum glucose if >500(>600 MRH) per glucometer. Collection Time: 09/10/23 5:00 PM Result Value Ref Range Bedside glucose 112 (H) 65 - 99 mg/dL Comprehensive metabolic panel Collection Time: 09/11/23 5:07 AM Result Value Ref Range Sodium 137 134 - 146 mmol/L Potassium, Bld 3.3 (L) 3.5 - 5.0 mmol/L Chloride 92 (L) 98 - 109 mmol/L CO2 37 (H) 22 - 32 mmol/L Anion gap 8 5 - 15 mmol/L BUN 23 5 - 27 mg/dL Creatinine 1.16 0.70 - 1.20 mg/dL Glucose 111 (H) 65 - 99 mg/dL Calcium 8.8 8.5 - 10.5 mg/dL Total Protein 6.9 6.0 - 8.0 g/dL Albumin 3.1 (L) 3.2 - 5.3 g/dL Alkaline Phosphatase 79 39 - 130 U/L AST 22 0 - 41 U/L ALT 17 0 - 40 U/L Total bilirubin 0.5 0.3 - 1.2 mg/dL eGFR (CKD-EPI)non-race dependent 66 >59 ml/min/1.73sq.m Magnesium Collection Time: 09/11/23 5:07 AM Result Value Ref Range Magnesium 1.6 (L) 1.8 - 2.6 mg/dL CBC auto differential Collection Time: 09/11/23 5:07 AM Result Value Ref Range White Blood Cells 7.6 4.0 - 11.0 X10E9/L RBC count 2.30 (L) 4.10 - 5.70 X10E12/L Hemoglobin 8.0 (L) 13.0 - 17.0 g/dL Hematocrit 23.6 (L) 39 - 49 % MCV 102 (H) 80 - 100 fL MCH 34.7 (H) 27 - 34 pg MCHC 33.9 32 - 36 g/dL RDW 16.8 (H) 11.5 - 15.0 % Platelets 154 150 - 450 X10E9/L MPV 10.9 7 - 12 fL % neutrophils 70.2 % % lymphocytes 18.7 % % monocytes 7.1 % % eosinophils 3.9 % % Basophils 0.1 % Neutrophils Absolute (A) 5.4 1.5 - 6.6 X10E9/L Lymphocytes Absolute 1.4 1.0 - 3.5 X10E9/L Monocytes Absolute 0.5 0 - 0.9 X10E9/L Eosinophils Absolute 0.3 0.0 - 0.4 X10E9/L Basophils Absolute 0.0 0.0 - 0.2 X10E9/L Radiology Echo limited W/ contrast Result Date: 09/08/2023 Narrative: Left Ventricle: Left ventricle appears normal in size. Wall thickness is normal. Systolic function is normal with an ejection fraction of 55-60%. See wall score diagram for wall motion abnormalities. Pericardium: There is pleural effusion. The study had technical difficulties. The study was difficult due to patient's body habitus and poor acoustic windows. X-ray chest 1 view Result Date: 09/08/2023 Narrative: HISTORY AND/OR TECH NOTES SOB Difficulty breathing Chest pain PROCEDURE AP chest COMPARISON July 23 FINDINGS Sternal wires There is cardiomediastinal prominence There is increased hilar fullness and congestion There is left greater than right pleural effusion There are granular opacities b ilaterally There is suggestion of asymmetric left basilar volume loss and consolidation No visible pneumothorax or apical cavitary process IMPRESSION: [id number] CHF with pleural effusions greater on the left There appears to be asymmetric left basilar consolidation and volume loss. Correlatefor pneumonia or aspiration clinically Suggest follow-up imaging to document clearing and normalization when appropriate CT should be considered if x-ray findings or symptoms persist Finalized by Pa Peres MD on 09/08/2023 9:47 AM DISCHARGE ASSESSMENT & PLAN Lasix 20 mg b.i.d. DISCHARGE INSTRUCTION Disposition: Home with homecare Condition: Good Activity: activity as tolerated Diet: Adult diet Regular Texture; Consistent Carb 255 grams (2000 kcal); No Added Salt (3-4 gm Sodium); Low Fat/Low Cholesterol Adult diet Follow up: Melanie Taylor DO within 7-14 days. Follow-up with cardiology Labs/Imaging/Pathology: [facility] in 1 week Discharge Medications: Medication List START taking these medications Instructions Last Dose Given Next Dose Due dapagliflozin propanediol 10 mg tablet Commonly known as: FARXIGA Start taking on: September 12, 2023 Take 1 tablet (10 mg total) by mouth in the morning. furosemide 20 mg tablet Commonly known as: LASIX Take 1 tablet (20 mg total) by mouth 2 (two) times a day before meals. CONTINUE taking these medications Instructions Last Dose Given Next Dose Due acetaminophen 325 mg tablet Commonly known as: TYLENOL Take 2 tablets (650 mg total) by mouth every 8 (eight) hours as needed for pain. albuterol 2.5 mg /3 mL (0.083 %) nebulizer solution Commonly known as: PROVENTIL,VENTOLIN Inhale 3 mL (2.5 mg total) by nebulization every 6 (six) hours as needed for wheezing. Patient takes it every 2 hours aspirin 81 mg Take 1 tablet (81 mg total) by mouth in the morning. benzonatate 200 mg capsule Commonly known as: TESSALON PERLES Take 1 capsule (200 mg total) by mouth 3 (three) times a day as needed for cough. BRILINTA 90 mg tablet Generic drug: ticagrelor Take 1 tablet (90 mg total) by mouth every 12 (twelve) hours. folic acid 1 mg tablet Commonly known as: FOLVITE Take 1 tablet (1 mg total) by mouth in the morning. lisinopriL 2.5 mg tablet Commonly known as: PRINIVIL,ZESTRIL Take 1 tablet (2.5 mg total) by mouth in the morning. metFORMIN XR 750 mg 24 hr tablet Commonly known as: GLUCOPHAGE XR Take 1 tablet (750 mg total) by mouth nightly. metoprolol 12.5 mg Commonly known as: LOPRESSOR Take 1 split tablet (12.5 mg total) by mouth in the morning and 1 split tablet (12.5 mg total) before bedtime. nitroglycerin 0.4 MG SL tablet Commonly known as: NITROSTAT Place 1 tablet (0.4 mg total) under the tongue every 5 (five) minutes as needed for chest pain. PARoxetine 10 mg tablet Commonly known as: PAXIL Take 1 tablet (10 mg total) by mouth every morning. pioglitazone 30 mg tablet Commonly known as: ACTOS Take 1 tablet (30 mg total) by mouth in the morning. simethicone 80 mg chewable tablet Commonly known as: MYLICON Chew 1 tablet (80 mg total) and swallow every 6 (six) hours as needed for flatulence. simvastatin 40 mg tablet Commonly known as: ZOCOR Take 1 tablet (40 mg total) by mouth nightly. * sodium chloride 0.9 % injection Infuse 10 mL into a venous catheter every 12 (twelve) hours. * sodium chloride 0.9 % injection Infuse 10 mL into a venous catheter as needed for line care. * sodium chloride 0.9 % injection Infuse 10 mL into a venous catheter as needed for line care (before and after each intermittent use). * This list has 3 medication(s) that are the same as other medications prescribed for you. Read thedirections carefully, and ask your doctor or other care provider to review them with you. Where to Get Your Medications These medications were sent to [id number] - [place], [place] - [address] [facility] [address] [address] dapagliflozin propanediol 10 mg tablet furosemide 20 mg tablet >30 minutes were spent on discharging this patient. APRIL Agrawal, 09/11/2023 10:46 AM [facility] Internal Medicine 7AM-7PM (all facilities): EpicChat or page through Vocera. 7PM-7AM ([facility], [facility] Psychiatry and Inpatient Rehab): EpicChat or page, [phone]. 7PM-7AM ([place], [place], [place], [place] and [facility] Rehab): EpicChat or page through Vocera. This note is dictated with the use of M*Modal. Please note that this dictation was completed with computer voice recognition software. Quite often unanticipated grammatical, syntax, homophones, and other interpretive errors are inadvertently transcribed by the computer software. Please disregard these errors. Please excuse any errors that have escaped final proofreading. Maggie Cruz, SPENCER-RN REFERRAL 09/11/23 1052 Physician Attestation I, Julia Man MD, personally performed a face to face diagnostic evaluation on this patient. I have reviewed the note authored by the advance practice provider including history, review of systems,physical examination,medical decision making and agree with the assessment and plan as written. I have seen and evaluated the patient, I have repeated the benoit portions of the physical exam and concur with the RASHAUN findings. I have reviewed all laboratory findings and imaging reports/films. I agree with the plan as noted. [facility] Plan of care note * Plan of Care - Virginia Christina RN - 09/11/2023 7:21 AM EDT Problem: Safety Goal: Patient will be injury free during hospitalization Description: INTERVENTIONS: 1. Assess patient's risk for falls and implement fall prevention plan of care per policy 2. Provide and maintain a safe environment 3. Proper use of double Identifiers 4. Medication administration using the 5 rights 5. Hand hygiene 6. Specimens are labeled at the bedside 7. Instruct patient/ patient customer account representative about use of safety devices 8. Include patient/ patient customer account representative in decisions related to safety Outcome: Progressing Note: Evaluation of progress towards goal: Able to ambulate In and Out of the bed with standby assist. No injury/ trauma/ fall. Hourly rounds completed. Problem: Respiratory - Adult Goal: Achieves optimal ventilation and oxygenation Description: Patient's goal is: INTERVENTIONS: 1. Assess for changes in respiratory status 2. Assess for changes in mentation and behavior 3. Position to facilitate oxygenation and minimize respiratory effort 4. Oxygen supplementation based on oxygen saturation or ABGs as ordered 5. Consult smoking cessation as indicated 6. Encourage broncho-pulmonary hygiene including cough, deep breathe, Incentive Spirometry, keep HOB elevated as tolerated, and encourage ambulation, as ordered 7. Assess the need for suctioning and obtain order to maintain clear airway 8. Assess and instruct patient to report SOB or any respiratory difficulty 9. Assess the need for Respiratory Therapy support if not already ordered 10. Initiate emergency measures for respiratory failure Outcome: Progressing Note: Evaluation of progress towards goal: Currently on NC at 2 LPM, breath sounds diminished, not in respiratory distress. Problem: Excessive Fluid Volume Goal: Fluid and electrolyte balance are achieved/maintained Description: INTERVENTIONS 1. Monitor vitals signs oxygen saturation, respiratory status to include rate, depth, effort, and lung sounds, ) urine color, labs, edema, jugular venous distention, and mental status 2. Monitor patient's weight 3. Monitor intake and output 4. Elevate head of bed 30 degrees 5. Turn patient 6. Monitor low sodium and fluid restriction diet per physician order 7. Collaborate with interdisciplinary team and initiate plan and interventions as ordered Outcome: Progressing Note: Evaluation of progress towards goal: EKG - NSR, fluid balance - (-) 1020 ml lasts 24 hours, weight is decreasing , denies any cardiac related complaints. [facility] Miscellaneous Notes* Plan of Care - Virginia Christina RN - 09/11/2023 7:21 AM EDT Problem: Safety Goal: Patient will be injury free during hospitalization Description: INTERVENTIONS: 1. Assess patient's risk for falls and implement fall prevention plan of care per policy 2. Provide and maintain a safe environment 3. Proper use of double Identifiers 4. Medication administration using the 5 rights 5. Hand hygiene 6. Specimens are labeled at the bedside 7. Instruct patient/ patient customer account representative about use of safety devices 8. Include patient/ patient customer account representative in decisions related to safety Outcome: Progressing Note: Evaluation of progress towards goal: Able to ambulate In and Out of the bed with standby assist. No injury/ trauma/ fall. Hourly rounds completed. Problem: Respiratory - Adult Goal: Achieves optimal ventilation and oxygenation Description: Patient's goal is: INTERVENTIONS: 1. Assess for changes in respiratory status 2. Assess for changes in mentation and behavior 3. Position to facilitate oxygenation and minimize respiratory effort 4. Oxygen supplementation based on oxygen saturation or ABGs as ordered 5. Consult smoking cessation as indicated 6. Encourage broncho-pulmonary hygiene including cough, deep breathe, Incentive Spirometry, keep HOB elevated as tolerated, and encourage ambulation, as ordered 7. Assess the need for suctioning and obtain order to maintain clear airway 8. Assess and instruct patient to report SOB or any respiratory difficulty 9. Assess the need for Respiratory Therapy support if not already ordered 10. Initiate emergency measures for respiratory failure Outcome: Progressing Note: Evaluation of progress towards goal: Currently on NC at 2 LPM, breath sounds diminished, not in respiratory distress. Problem: Excessive Fluid Volume Goal: Fluid and electrolyte balance are achieved/maintained Description: INTERVENTIONS 1. Monitor vitals signs oxygen saturation, respiratory status to include rate, depth, effort, and lung sounds, ) urine color, labs, edema, jugular venous distention, and mental status 2. Monitor patient's weight 3. Monitor intake and output 4. Elevate head of bed 30 degrees 5. Turn patient 6. Monitor low sodium and fluid restriction diet per physician order 7. Collaborate with interdisciplinary team and initiate plan and interventions as ordered Outcome: Progressing Note: Evaluation of progress towards goal: EKG - NSR, fluid balance - (-) 1020 ml lasts 24 hours, weight is decreasing , denies any cardiac related complaints. * Plan of Care - Izabella Rogers RN - 09/10/2023 6:00 PM EDT Problem: Knowledge Deficit Goal: Patient/patient customer account representative demonstrates understanding of disease process, treatment plan,medications, and discharge instructions Description: INTERVENTIONS 1. Complete learning assessment and assess knowledge base 2. Provide teaching at level of understanding 3. Provide teaching via preferred learning method(s) Outcome: Progressing Note: Evaluation of progress towards goal: Pt educated on tx plan for CHF including medications, measuring I&O and weight, and diet. Pt verbalizes understanding of teaching. Problem: Glucose Imbalance Goal: Clinical indication of glucose balance is achieved Description: Patient's goal is: INTERVENTIONS 1. Monitor blood glucose levels as ordered 2. Administer medications as ordered 3. Notify physician of ineffective treatment plan Outcome: Progressing Note: Evaluation of progress towards goal: Pt's blood glucose monitored per provider order and insulin administered per provider order. * PT/OT/RESEARCH TEST ENGINE OPERATOR - Nunu Pinon, TARIFF COUNSEL - 09/10/2023 8:27 AM EDT Physical Therapy Treatment Discharge Recommendations PT Recommendations: Home 6 Clicks: Basic Mobility Turning from your back to your side while in a flat bed without using bed rails?: None Moving from lying on your back to sitting on side of flat bed without using bed rails?: None Moving to and from bed to a chair (including w/c)?: None Standing up from a chair using your arms (e.g. w/c or bedside chair)?: None To walk in hospital room?: A little Climbing 3-5 steps with a railing?: A little Scoring 6 Clicks: Basic Mobility Raw Score: 22 CMS G Code Modifier: CJ Therapy Plan Need for skilled Physical Therapy to address deficits in functional mobility due to a status decline resulting from acute and chronic CHF. Patient was resting in bed upon arrival. Bed mobility and transfers SBA. Ambulated in room to commode and chair, 40' x 1, SBA with RW. Patient resting in chair with chair alarm on. Breakfast ordered and all needs met. Nursing notified. PT Treatment/Interventions: Functional transfer training, LE strengthening/ROM, Endurance training,Balance, Stair training, Bed mobility, Gait training, Functional activities, Neuromuscular reeducation PT Frequency: 5-6days/week PT Duration: 10 days Patient Response to Treatment: Progressing toward goals Assessment Patient Assessment Therapy Problem List: Decreased ADL status, Decreased balance, Decreased endurance, Decreased high-level ADLs, Decreased mobility, Decreased safe judgement during ADL, Decreased self-care trans, Decreased UE strength Patient Response to Treatment: Progressing toward goals Rehab Prognosis: Good, With continued PT status post acute discharge Visit RN Communication: Yes Medical Record Reviewed: Yes PT Type of Visit: Treatment Precautions Oxygen Used: yes Other: Fall risk Pain Assessment Pain Assessment: No/denies pain Cognition Overall Cognitive Status: Within Functional Limits Bed Mobility Rolling: Stand by assist Supine to Sit: Stand by assist Other: HOB elevated for patient to sit up Transfers Stand to Sit: Standby assist Toilet Transfers: Standby assist Other: Patient needed to go to the restroom, transfers from toilet SBA Gait Base of Support: Within Functional Limits Pattern: Decreased ramin, Antalgic gait Gait Assistance: Standby assist Assistive Device: Rolling walker Gait Distance: 40' with RW to assess safety for in home distances for safe discharge. Other: Ambulated in room with the use of non-skid socks and gait belt. Balance Sitting Balance: Static: Good Sitting Balance: Dynamic: Good Standing Balance: Static: Good Standing Balance: Dynamic: Fair Other: Fair walking balance with the use of rolling walker Plan Physical Therapy Care Plan Physical Therapy Care Plan (Active) Template: PT - Physical Therapy Problem: Bed Mobility Dates: Start: 09/09/23 Disciplines: PT Goal: Patient will perform bed mobility with Stand By Assist Dates: Start: 09/09/23 Expected End: 09/18/23 Description: Goal Description: Pt to perform bed mobility in order to be able to decrease risk of further skin breakdown. Disciplines: PT Outcomes Date/Time User Outcome 09/10/23825 Nunu Pinon PTA Progressing Goal Note filed on 09/10/23825 by Nunu Pinon PTA Evaluation of progress towards goal: SBA for bed mobility with the HOB elevated Problem: Gait Dates: Start: 09/09/23 Disciplines: PT Goal: Patient will perform gait with Stand By Assist Dates: Start: 09/09/23 Expected End: 09/18/23 Description: Pt to be able to ambulate 100ft with walker to be able to safely manage household distances at discharge. Disciplines: PT Outcomes Date/Time User Outcome 09/10/23825 Nunu Pinon PTA Progressing Goal Note filed on 09/10/23825 by Nunu Pinon PTA Evaluation of progress towards goal: Ambulated in room 40' x 1, SBA with RW Problem: Stairs/Curb Dates: Start: 09/09/23 Disciplines: PT Goal: Patient will perform stairs/curb with Stand By Assist Dates: Start: 09/09/23 Expected End: 09/18/23 Description: Pt to ascend and descend 4 stairs with handrails to be able to safely enter house at discharge. Disciplines: PT Problem: Standing Balance Dates: Start: 09/09/23 Disciplines: PT Goal: Improve balance to good Dates: Start: 09/09/23 Expected End: 09/18/23 Description: Static Dynamic Pt to have balance of good in order to decrease risk of falls at discharge. Disciplines: PT Outcomes Date/Time User Outcome 09/10/23825 Nunu Pinon PTA Progressing Goal Note filed on 09/10/23825 by Nunu Pinon PTA Evaluation of progress towards goal: Fair standing balance with the use of rolling walker Problem: Transfers Dates: Start: 09/09/23 Disciplines: PT Goal: Patient will perform transfers with Stand By Assist Dates: Start: 09/09/23 Expected End: 09/18/23 Description: Goal Description: Pt to be able to safely transfer with least amount of assistance to demonstrate decreased need for caregiver assistance and ease with home transfers. Disciplines: PT Outcomes Date/Time User Outcome 09/10/23825 Nunu Pinon PTA Progressing Goal Note filed on 09/10/23825 by Nunu Pinon PTA Evaluation of progress towards goal: SBA for transfers Physical Therapy Care Plan (Resolved) There are no resolved problems. Principal Problem: Acute on chronic congestive heart failure, unspecified heart failure type ([facility]) Active Problems: Anxiety disorder Benign essential hypertension Chronic diastolic congestive heart failure ([facility]) Chronic respiratory failure with hypoxia [place] 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 Dyslipidemia Gastroesophageal reflux disease without esophagitis Obstructive sleep apnea syndrome Type 2 diabetes mellitus with hyperglycemia, without long-term current use of insulin ([facility] Pleural effusion, left Associated attestation - aMria Antonia Aden, PT - 09/10/2023 10:30 AM EDT I have reviewed and agree with this note and education documentation for this visit. * Plan of Care - Tasia Huynh RN - 09/10/2023 3:04 AM EDT Problem: Pain Goal: Patient goal is pain score less than 4, able to rest, and participant in treatment plan as appropriate Description: INTERVENTIONS: 1. Encourage patient or legal customer account representative to report early pain and ask for pain medicine when needed 2. Assess pain using appropriate pain scale and include the scale used when documenting 3. Administer analgesics based on type and severity of pain and evaluate response within appropriate time frame 4. Implement non-pharmacological measures as appropriate and evaluate response 5. Consider cultural and social influences on pain and pain management 6. Notify LIP if interventions ineffective or patient reports new pain 7. Monitor vital signs including pulse ox, end-tidal CO2 based on pain intervention 8. Reassess pain per policy 9. Teach patient or legal customer account representative interventions for comforting Outcome: Progressing Note: Evaluation of progress towards goal: No c/o pain voiced. No nonverbal s/sx pain noted. Problem: Safety Goal: Patient will be injury free during hospitalization Description: INTERVENTIONS: 1. Assess patient's risk for falls and implement fall prevention plan of care per policy 2. Provide and maintain a safe environment 3. Proper use of double Identifiers 4. Medication administration using the 5 rights 5. Hand hygiene 6. Specimens are labeled at the bedside 7. Instruct patient/ patient customer account representative about use of safety devices 8. Include patient/ patient customer account representative in decisions related to safety Outcome: Progressing Note: Evaluation of progress towards goal: Remains free from injury. Safety precautions maintained. Problem: Moderate - High Risk Fall Score Description: Bell Fall Score of =/> 25 or indicated by [facility] Rehab Assessment Goal: Patient should be free from fall Description: Interventions: 1. [place] to environment 2. Hourly rounds addressing the 4 P's (Pain, Positioning, Possessions, Potty) 3. Clear area of hazards (spills, clutter, electrical cords, unnecessary equipment) 4. Place equipment (bed & TV controls, call light, phone, urinal) within reach 5. Encourage patient to wear glasses and hearing aides as appropriate 6. Maintain bed in lowest position 7. Lock wheels on bed/wheelchair 8. Provide adequate lighting, including night light 9. Assess need for additional bedding, food/fluids, pain med's prior to sleep/routinely 10. Provide gripper slippers or personal non-skid footwear 11. Teach patient and patient customer account representative to maintain environment for safety and engage in all aspects of fall prevention program 12. Remind patient to call for help before getting out of bed 13. Initiate bed/chair/exit alarms supportive devices as appropriate, (chair wedge, no-skid floor mat, raised edge mattress, hip protectors) 14. Locate patient bed assignment for optimal visualization 15. Evaluate and identify Safe Patient Handling Equipment needs 16. Provide supervision when out of bed or chair 17. Utilize gait belt as needed to assist with ambulation 18. Place adaptive equipment (cane, walker) within reach 19. Request patient customer account representative bring adaptive equipment/mobility aids from home or obtain and provide as needed 20. Consult pharmacy regarding effects of med's affecting mobility, cognition, and alternatives 21. Obtain physician order for PT if risk factors associated with mobility are present 22. Obtain physician order for OT as appropriate 23. Utilize diversional activities 24. Educate patient and patient customer account representative how to maintain a safe environment during visitationtimes (notify nurse prior to leaving bedside) 25. Consider appropriateness of medical or non-bilingual medical assistant 26. Set up voiding schedule as appropriate (every 2 hours) Outcome: Progressing Note: Evaluation of progress towards goal: Remains free from falls. Fall precautions maintained. Problem: Respiratory - Adult Goal: Achieves optimal ventilation and oxygenation Description: Patient's goal is: INTERVENTIONS: 1. Assess for changes in respiratory status 2. Assess for changes in mentation and behavior 3. Position to facilitate oxygenation and minimize respiratory effort 4. Oxygen supplementation based on oxygen saturation or ABGs as ordered 5. Consult smoking cessation as indicated 6. Encourage broncho-pulmonary hygiene including cough, deep breathe, Incentive Spirometry, keep HOB elevated as tolerated, and encourage ambulation, as ordered 7. Assess the need for suctioning and obtain order to maintain clear airway 8. Assess and instruct patient to report SOB or any respiratory difficulty 9. Assess the need for Respiratory Therapy support if not already ordered 10. Initiate emergency measures for respiratory failure Outcome: Progressing Note: Evaluation of progress towards goal: No resp distress noted, sats wnl on 3lpm NC. RR wnl. Problem: Glucose Imbalance Goal: Clinical indication of glucose balance is achieved Description: Patient's goal is: INTERVENTIONS 1. Monitor blood glucose levels as ordered 2. Administer medications as ordered 3. Notify physician of ineffective treatment plan Outcome: Progressing Note: Evaluation of progress towards goal: No coverage required for HS FSBS . * Plan of Care - Izabella Rogers RN - 09/09/2023 3:24 PM EDT Problem: Knowledge Deficit Goal: Patient/patient customer account representative demonstrates understanding of disease process, treatment plan,medications, and discharge instructions Description: INTERVENTIONS 1. Complete learning assessment and assess knowledge base 2. Provide teaching at level of understanding 3. Provide teaching via preferred learning method(s) Outcome: Progressing Note: Evaluation of progress towards goal: POC discussed with patient for tx of acute on chronic CHF including medications, diet, measuring I&O, and safety precautions. Questions answered PRN. Problem: Glucose Imbalance Goal: Clinical indication of glucose balance is achieved Description: Patient's goal is: INTERVENTIONS 1. Monitor blood glucose levels as ordered 2. Administer medications as ordered 3. Notify physician of ineffective treatment plan Outcome: Progressing Note: Evaluation of progress towards goal: Pt's blood glucose monitored according to provider order. Insulin administered per provider order. * PT/OT/RESEARCH TEST ENGINE OPERATOR - Brant Metzger OTR/[place] - 09/09/2023 1:41 PM EDT Occupational Therapy Evaluation Discharge Recommendations OT Recommendations : Home Home Recommendations: Intermittent caregiver support for: (ADLs, house hold chores) Post Discharge Therapy Recommendations: Home Occupational Therapy Therapy Plan Need for skilled Occupational Therapy to address deficits in ADL independence and functional mobility due to a status decline resulting from acute on chronic CHF. Past Medical History: Diagnosis Date Acute coronary syndrome [place] Anxiety disorder Chronic obstructive asthma with exacerbation [place]) COPD (chronic obstructive pulmonary disease) [place] Diabetes mellitus type 2, controlled ([facility] Essential hypertension Folate deficiency anemia Heart failure ([facility] Megaloblastic anemia Muscle weakness (generalized) Myocardial infarct ([facility] Obesity Obstructive sleep apnea SARAH (obstructive sleep apnea) Pancytopenia ([facility] Presence of coronary artery bypass graft stent Supplemental oxygen dependent Past Surgical History: Procedure Laterality Date CARDIAC SURGERY 6 Clicks: Daily Activity Putting on and taking off regular lower body clothing?: A little Bathing (including washing, rinsing, drying)?: A little Toileting, which includes using toilet, bedpan or urinal?: A little Putting on and taking off regular upper body clothing?: A little Taking care of personal grooming such as brushing teeth?: A little Eating meals?: None Scoring Daily Activity Raw Score: 19 CMS G Code Modifier: CK' OT Treatment/Interventions: ADL retraining, Functional transfer training, UE strengthening/ROM, Balance OT Frequency: Other (comment) (1-5x week) OT Duration: 10 days Assessment Patient Assessment Therapy Problem List: Decreased ADL status, Decreased balance, Decreased endurance, Decreased high-level ADLs, Decreased mobility, Decreased safe judgement during ADL, Decreased self-care trans, Decreased UE strength Patient Response to Treatment: Tolerated evaluation without adverse reaction Mood/Affect: Appropriate for circumstances Rehab Prognosis: Good, With continued OT status post acute discharge Visit RN Communication: Yes Medical Record Reviewed: Yes OT Type of Visit: Evaluation Precautions Activity: Early mobility ok pass, Ok to evaluate per Anusha ALAS Equipment: rolling walker, nonskid socks, O2 Telemetry/Lawn Mower Operator: Yes Oxygen Used: 3L O2 NC Other: Fall risk Pain Assessment Pain Assessment: 0-10 Pain Score: 5 Pain Type: Chronic pain Pain Location: Back Pain Orientation: Lower Pain Descriptors: Other (Comment) (just hurts) Pain Frequency: Constant/continuous Pain Onset: Ongoing Clinical Progression: Not changed Home Living Type of Home: Trailer Home Layout: One level Stairs to Enter: 4 Hand Rails: Bilateral Stairs in Home: 0 Bathroom Shower/Tub: Tub/shower unit Bathroom Toilet: Standard Bathroom Equipment: Grab bars in shower, Shower chair, Hand-held shower, Grab bars around toilet Bathroom Accessibility: Accessible via walker Home Equipment: Rolling walker, Cane, Damper Worker, Sock aid, Long-handled shoehorn, Home oxygen, Other (Comment) (rollator) Prior Function Lives With: Alone Receives Help From: Family Level of Mobility: Independent with ADLs and functional transfers or gait (with use of RW) Homemaking Assistance: Independent Other: Pt noted he is typically ind with ADLs, however, he has been having more difficulty and wanting help at home. Pt takes care of his own cooking, cleaning and laundry but would also like some help in the home. 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 ADL / IADL Grooming Assistance: Contact guard assist Grooming Deficit: Steadying Bathing/Showering Assistance: Contact guard assist Toilet/Commode Assistance: Contact guard assist UE Dressing Assistance: Standby assist LE Dressing Assistance: Contact guard assist LE Dressing Deficit: Use of adaptive equipment Footwear Assistance: Contact guard assist Footwear Deficit: Other (Comment) (with use of sock ai) Other: Pt notes he uses AE for lower body clothing. Pt able to stand well enough at sink to complete hygiene and grooming tasks as well as toileting. CGA for transfer. Home Management - IADL Other: Pt notes he uses AE for lower body clothing. Pt able to stand well enough at sink to complete hygiene and grooming tasks as well as toileting. CGA for transfer. Hearing / Speech / Vision Hearing: Within Functional Limits Speech: Within Functional Limits Current Vision: Wears glasses only for reading Visual History: Cataracts, Surgical intervention Cognition Overall Cognitive Status: Within Functional Limits Sensation Overall Sensation Status: Within Functional Limits Perception / Proprioception Overall Status: Within Functional Limits Bed Mobility Supine to Sit: Stand by assist, Right Sit to Supine: Stand by assist, Left Other: HOB elevated and use of bed rail getting out to edge of bed as well as getting into bed. Transfers Sit to Stand: Standby assist Stand to Sit: Standby assist Toilet Transfers: Contact guard assist Gait Gait Assistance: Standby assist Assistive Device: Rolling walker Gait Distance: 40' with RW to assess safety for in home distances for safe discharge. Balance Sitting Balance: Static: Good Sitting Balance: Dynamic: Good Standing Balance: Static: Good Standing Balance: Dynamic: Fair Other: Pt notes he does not typically bend down to retrieve items due to back pain and getting dizzy. Pt uses recruitment coordinator. No LOB at this time. RUE Assessment: Exceptions to WFL RUE Strength RUE Overall Strength: Within Functional Limits - able to perform ADL tasks with strength (4+/5 grossly) LUE Assessment: Exceptions to WFL LUE Strength LUE Overall Strength: Within Functional Limits - able to perform ADL tasks with strength (4+/5 grossly) Activity Tolerance Endurance: Tolerates <30 minutes activity WITHOUT vital sign changes Plan Occupational Therapy Care Plan Occupational Therapy Care Plan (Active) Template: OT - Occupational Therapy Problem: Activity Tolerance Dates: Start: 09/09/23 Disciplines: OT Goal: Tolerate 30 minutes of activity WITH rest breaks Dates: Start: 09/09/23 Expected End: 09/18/23 Description: Goal Description: Pt will tolerate increased activity tolerance in order to safely complete I/ADLs without difficulty. Disciplines: OT Problem: Other (Customize) Dates: Start: 09/09/23 Disciplines: OT Goal: Improve Dates: Start: 09/09/23 Expected End: 09/18/23 Description: Goal Description: Pt will complete ADLs with SBA to increase independence. Disciplines: OT Problem: Standing Balance Dates: Start: 09/09/23 Disciplines: OT Goal: Improve balance to good Dates: Start: 09/09/23 Expected End: 09/18/23 Description: During standing ADLs and functional transfers to increase safety. Disciplines: OT Problem: Strength Dates: Start: 09/09/23 Disciplines: OT Goal: Improve strength Dates: Start: 09/09/23 Expected End: 09/18/23 Description: Of extremity/ location: B UEs To facilitate: increased ability to complete ADLs and mobility. Disciplines: OT Occupational Therapy Care Plan (Resolved) There are no resolved problems. Principal Problem: Acute on chronic congestive heart failure, unspecified heart failure type ([facility]) Active Problems: Anxiety disorder Benign essential hypertension Chronic diastolic congestive heart failure ([facility]) Chronic respiratory failure with hypoxia ([facility]) 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 Dyslipidemia Gastroesophageal reflux disease without esophagitis Obstructive sleep apnea syndrome Type 2 diabetes mellitus with hyperglycemia, without long-term current use of insulin ([facility]) Pleural effusion, left * Discharge Planning Note - Lakshmi Eastman RN - 09/09/2023 11:36 AM EDT Images from the original note were not included. DISCHARGE PLANNING NOTE Discharge Planning Assessment Brian Lia Mandel Admit Status: Observation Meet: Yes Readmission Risk: N/A. Date of Admission: 09/08/2023 GMLOS: Observation < 48 hours Target Discharge Date: Discharge Planning Assessment completed at bedside. Director Of Brand Marketing identified self and role to the patient.Patient is agreeable to the assessment and discussion of a safe discharge plan. 09/09/23 1131 Discharge Disposition Discharge Disposition Home with Home Health [facility] Information [facility] Patient Information Primary Caregiver Self Support System Friends;Extended family Income Information Income Information Retired/Pension/Social Security Referral To Community Resources Denies needs Discharge Planning Living Arrangements Alone Support Systems Family members;Neighbors Assistance Needed Patient agrees to home health care at discharge. Denies need for SNF. Type of Residence Private residence Home Care Services No Community Agencies Currently Utilized None Established DME Comments Oxygen at home with 2 liters at baseline. Walker Patient expects to be discharged to: Home with Home Health Care Does the patient need discharge transport arranged? No Services Requested Discharge Disposition: Home with home health services Does the patient need discharge transportation arranged?: No Patient choice offered: Yes List Provided: Yes [facility] List Provided: Home Care (unable to print list as [facility] is down.) Initial DC Assessment Completed: Yes Pharmacy:[facility] in [place], [place] PCP: Dr. James Villanueva Transportation at Time of Discharge: Family Patient will make her own follow up appointments: no Patient Goals: Goals home with home health care (pt-stated) Evaluation of progress towards goal: Patient is requesting home health care. Requested services RN/Aid and if [facility] can accept she will require telehealth for CHF maintenance. PT Recommends: OT Recommends: [facility] is currently down. Patient was provided a verbal list of home health care companies. [facility] was selected for the tele health at home. Plan to prevent readmission: [facility] if accepts patient will enroll patient int he teleheatlh program for continued management of CHF. Patient does not endorse any questions at this time. Patient Discharge Plan: Home with Home Health pending acceptance for RN/Aid/telehealth program for maintenance of CHF. Follow up appointment as scheduled below (tasked to transition center): Dr. James Villanueva (PCP) follow up in 7-10 days. Follow up with [facility] in [place] in 2-3 weeks. - Lakshmi Eastman RN 09/09/23 11:47 AM * PT/OT/RESEARCH TEST ENGINE OPERATOR - Shreya Bueno PT - 09/09/2023 11:12 AM EDT Physical Therapy Evaluation Discharge Recommendations PT Recommendations: Home Home Recommendations: Intermittent caregiver support for: Post Discharge Therapy Recommendations: Home Physical Therapy Forestry Engineer Support for-: Mobility Deficits, ADL Deficits Past Medical History: Diagnosis Date Acute coronary syndrome [place] Anxiety disorder Chronic obstructive asthma with exacerbation [place]) COPD (chronic obstructive pulmonary disease) ([facility] Diabetes mellitus type 2, controlled ([facility] Essential hypertension Folate deficiency anemia Heart failure ([facility]) Megaloblastic anemia Muscle weakness (generalized) Myocardial infarct ([facility]) Obesity Obstructive sleep apnea SARAH (obstructive sleep apnea) Pancytopenia ([facility]) Presence of coronary artery bypass graft stent Supplemental oxygen dependent Past Surgical History: Procedure Laterality Date CARDIAC SURGERY 6 Clicks: Basic Mobility Turning from your back to your side while in a flat bed without using bed rails?: None Moving from lying on your back to sitting on side of flat bed without using bed rails?: None Moving to and from bed to a chair (including w/c)?: None Standing up from a chair using your arms (e.g. w/c or bedside chair)?: None To walk in hospital room?: A little Climbing 3-5 steps with a railing?: A little Scoring 6 Clicks: Basic Mobility Raw Score: 22 [facility] G Code Modifier: CJ Therapy Plan Need for skilled Physical Therapy to address deficits in functional mobility due to a status decline resulting from acute on chronic CHF. PT Treatment/Interventions: Functional transfer training, LE strengthening/ROM, Endurance training,Balance, Stair training, Bed mobility, Gait training, Functional activities, Neuromuscular reeducation PT Frequency: 5-6days/week PT Duration: 10 days Patient Response to Treatment: Tolerated evaluation without adverse reaction Assessment Patient Assessment Therapy Problem List: Abnormal posture, Decreased balance, Decreased endurance, Decreased mobility,Decreased safe judgement during ADL, Decreased LE ROM, Decreased LE strength Patient Response to Treatment: Tolerated evaluation without adverse reaction Mood/Affect: Appropriate for circumstances Rehab Prognosis: Good, With continued PT status post acute discharge Visit RN Communication: Yes Medical Record Reviewed: Yes PT Type of Visit: Evaluation Precautions Activity: Early mobility ok pass, Ok to evaluate per Anusha ALAS Equipment: rolling walker, nonskid socks, O2 Telemetry/Lawn Mower Operator: Yes Oxygen Used: 3L via nasal cannula Pain Assessment Pain Assessment: No/denies pain Home Living Type of Home: Trailer Home Layout: One level Stairs to Enter: 4 Home Equipment: Rolling walker Prior Function Lives With: Alone Receives Help From: Family Level of Mobility: Independent with ADLs and functional transfers or gait Homemaking Assistance: Independent Hearing / Speech / Vision Hearing: Within Functional Limits Speech: Within Functional Limits Current Vision: Wears glasses all the time Cognition Overall Cognitive Status: Within Functional Limits Transfers Sit to Stand: Standby assist Stand to Sit: Standby assist Toilet Transfers: Standby assist Gait Base of Support: Within Functional Limits Pattern: Decreased ramin, Antalgic gait Gait Assistance: Standby assist Assistive Device: Rolling walker Gait Distance: 50ft Included Uneven Surface: Yes 2 Turns: Yes Balance Sitting Balance: Static: Good Sitting Balance: Dynamic: Good Standing Balance: Static: Good Standing Balance: Dynamic: Fair RLE Assessment: Within Functional Limits LLE Assessment: Within Functional Limits Activity Tolerance Endurance: Tolerates <30 minutes activity WITHOUT vital sign changes Plan Physical Therapy Care Plan Physical Therapy Care Plan (Active) Template: PT - Physical Therapy Problem: Bed Mobility Dates: Start: 09/09/23 Disciplines: PT Goal: Patient will perform bed mobility with Stand By Assist Dates: Start: 09/09/23 Expected End: 09/18/23 Description: Goal Description: Pt to perform bed mobility in order to be able to decrease risk of further skin breakdown. Disciplines: PT Problem: Gait Dates: Start: 09/09/23 Disciplines: PT Goal: Patient will perform gait with Stand By Assist Dates: Start: 09/09/23 Expected End: 09/18/23 Description: Pt to be able to ambulate 100ft with walker to be able to safely manage household distances at discharge. Disciplines: PT Problem: Stairs/Curb Dates: Start: 09/09/23 Disciplines: PT Goal: Patient will perform stairs/curb with Stand By Assist Dates: Start: 09/09/23 Expected End: 09/18/23 Description: Pt to ascend and descend 4 stairs with handrails to be able to safely enter house at discharge. Disciplines: PT Problem: Standing Balance Dates: Start: 09/09/23 Disciplines: PT Goal: Improve balance to good Dates: Start: 09/09/23 Expected End: 09/18/23 Description: Static Dynamic Pt to have balance of good in order to decrease risk of falls at discharge. Disciplines: PT Problem: Transfers Dates: Start: 07/19/24 Disciplines: PT Goal: Patient will perform transfers with Stand By Assist Dates: Start: 09/09/23 Expected End: 09/18/23 Description: Goal Description: Pt to be able to safely transfer with least amount of assistance to demonstrate decreased need for caregiver assistance and ease with home transfers. Disciplines: PT Physical Therapy Care Plan (Resolved) There are no resolved problems. Principal Problem: Acute on chronic congestive heart failure, unspecified heart failure type ([facility]) Active Problems: Anxiety disorder Benign essential hypertension Chronic diastolic congestive heart failure ([facility]) Chronic respiratory failure with hypoxia [place] 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 Dyslipidemia Gastroesophageal reflux disease without esophagitis Obstructive sleep apnea syndrome Type 2 diabetes mellitus with hyperglycemia, without long-term current use of insulin ([facility]) Pleural effusion, left * PT/OT/RESEARCH TEST ENGINE OPERATOR - Shreya Bueno, PT - 09/09/2023 8:45 AM EDT Physical Therapy (P) CANCEL - Refusal Attempted twice and patient states he would like to eat breakfast first. Will continue to follow. * Plan of Care - Viki Lu RN - 09/08/2023 8:24 PM EDT Problem: Pain Goal: Patient goal is pain score less than 4, able to rest, and participant in treatment plan as appropriate Description: INTERVENTIONS: 1. Encourage patient or legal customer account representative to report early pain and ask for pain medicine when needed 2. Assess pain using appropriate pain scale and include the scale used when documenting 3. Administer analgesics based on type and severity of pain and evaluate response within appropriate time frame 4. Implement non-pharmacological measures as appropriate and evaluate response 5. Consider cultural and social influences on pain and pain management 6. Notify LIP if interventions ineffective or patient reports new pain 7. Monitor vital signs including pulse ox, end-tidal CO2 based on pain intervention 8. Reassess pain per policy 9. Teach patient or legal customer account representative interventions for comforting Outcome: Progressing Note: Evaluation of progress towards goal: Pt rates pain 0 , prn medication available. Problem: Safety Goal: Patient will be injury free during hospitalization Description: INTERVENTIONS: 1. Assess patient's risk for falls and implement fall prevention plan of care per policy 2. Provide and maintain a safe environment 3. Proper use of double Identifiers 4. Medication administration using the 5 rights 5. Hand hygiene 6. Specimens are labeled at the bedside 7. Instruct patient/ patient customer account representative about use of safety devices 8. Include patient/ patient customer account representative in decisions related to safety Outcome: Progressing Note: Evaluation of progress towards goal: Pt. Remains free from falls and injuries. Call light in reach, bed in lowest position. Problem: Infection Goal: Absence of infection during hospitalization Description: Interventions: 1. Assess and monitor for signs and symptoms of infection 2. Monitor lab/diagnostic results 3. Monitor all insertion sites i.e., indwelling lines, tubes and drains 4. Monitor endotracheal (as able) and nasal secretions for changes in amount and color 5. Administer medications as ordered 6. Instruct and encourage patient and family to use good hand hygiene technique 7. Identify and instruct patient/patient customer account representative in use of appropriate isolation precautionsfor identified infection/symptoms 8. Provide and discuss with patient/patient customer account representative on educational MDRO sheet 9. Encourage and monitor nutritional status daily and consult court monitor if indicated 10. Implement neutropenic guidelines as needed 11. Review exposure to history of communicable disease and recent travel history on admission 12. Encourage annual influenza vaccine 13. Encourage pneumonia vaccine Outcome: Progressing Note: Evaluation of progress towards goal: Problem: Knowledge Deficit Goal: Patient/patient customer account representative demonstrates understanding of disease process, treatment plan,medications, and discharge instructions Description: INTERVENTIONS 1. Complete learning assessment and assess knowledge base 2. Provide teaching at level of understanding 3. Provide teaching via preferred learning method(s) Outcome: Progressing Note: Evaluation of progress towards goal: Patient updated on POC along with medication. Patient voiced understanding. Problem: Discharge Planning Goal: Discharge to post-acute care, other facility, or home with appropriate resources Description: Patient's goal is: INTERVENTIONS 1. Conduct assessment to determine patient/family and health care team treatment goals, and need for post-acute services based on payer coverage, community resources, and patient preferences, and barriers to discharge 2. Coordinate with Social work, Care Navigation, and Utilization Review to arrange appropriate level of services according to patient's needs based on patient preference and payer coverage in collaboration with the physician and health care team 3. Address psychosocial, clinical, and financial barriers to discharge as identified in assessment in conjunction with the patient/family and health care team 4. Consult appropriate ancillary services (i.e.. PT/OT/ST, etc) as needed 5. Communicate with and update the patient/family, physician, and health care team regarding progress on the discharge plan 6. Identify discharge learning needs (meds, wound care, etc). 7. Arrange for needed discharge transportation as appropriate Outcome: Progressing Note: Evaluation of progress towards goal: Multidisciplinary teams working together with patient toachieve discharge goals. * Wound Care - Cindy Villalobos RN - 09/08/2023 4:12 PM EDT ET nurse note: ET seen patient for a Bassem score of 18. Initial ET skin assessment completed. Scattered sores on bilateral legs. Cleanse with soap and water then pat dry. Apply medi honey on adaptic to open areas and secure with band aid or dry dressing. Remaining pressure points clear. Skin protocols on chart. Continue to follow wound care order set and turn patient every 2 hours. No additional concerns at this time. Please consult Wound Care Services with any new skin concerns. * Plan of Care - Luigi Sibley RN - 09/08/2023 3:27 PM EDT Problem: Pain Goal: Patient goal is pain score less than 4, able to rest, and participant in treatment plan as appropriate Description: INTERVENTIONS: 1. Encourage patient or legal customer account representative to report early pain and ask for pain medicine when needed 2. Assess pain using appropriate pain scale and include the scale used when documenting 3. Administer analgesics based on type and severity of pain and evaluate response within appropriate time frame 4. Implement non-pharmacological measures as appropriate and evaluate response 5. Consider cultural and social influences on pain and pain management 6. Notify LIP if interventions ineffective or patient reports new pain 7. Monitor vital signs including pulse ox, end-tidal CO2 based on pain intervention 8. Reassess pain per policy 9. Teach patient or legal customer account representative interventions for comforting Outcome: Progressing Note: Evaluation of progress towards goal: Pt able to report pain according to 0/10 pain scale. Medicating patient for pain per orders. Problem: Safety Goal: Patient will be injury free during hospitalization Description: INTERVENTIONS: 1. Assess patient's risk for falls and implement fall prevention plan of care per policy 2. Provide and maintain a safe environment 3. Proper use of double Identifiers 4. Medication administration using the 5 rights 5. Hand hygiene 6. Specimens are labeled at the bedside 7. Instruct patient/ patient customer account representative about use of safety devices 8. Include patient/ patient customer account representative in decisions related to safety Outcome: Progressing Note: Evaluation of progress towards goal: Pt's risk for falls assessed and fall prevention implemented as needed, safe environment provided and maintained, hand hygiene completed. Problem: Infection Goal: Absence of infection during hospitalization Description: Interventions: 1. Assess and monitor for signs and symptoms of infection 2. Monitor lab/diagnostic results 3. Monitor all insertion sites i.e., indwelling lines, tubes and drains 4. Monitor endotracheal (as able) and nasal secretions for changes in amount and color 5. Administer medications as ordered 6. Instruct and encourage patient and family to use good hand hygiene technique 7. Identify and instruct patient/patient customer account representative in use of appropriate isolation precautionsfor identified infection/symptoms 8. Provide and discuss with patient/patient customer account representative on educational MDRO sheet 9. Encourage and monitor nutritional status daily and consult court monitor if indicated 10. Implement neutropenic guidelines as needed 11. Review exposure to history of communicable disease and recent travel history on admission 12. Encourage annual influenza vaccine 13. Encourage pneumonia vaccine Outcome: Progressing Note: Evaluation of progress towards goal: Patient VS WNL, remains afebrile for shift. Problem: Knowledge Deficit Goal: Patient/patient customer account representative demonstrates understanding of disease process, treatment plan,medications, and discharge instructions Description: INTERVENTIONS 1. Complete learning assessment and assess knowledge base 2. Provide teaching at level of understanding 3. Provide teaching via preferred learning method(s) Outcome: Progressing Note: Evaluation of progress towards goal: Patient is taught verbally at and appropriate level of understanding using the teach back method. Patient was encouraged to asked questions to learn about of their plan of care and medications. The patient received proper education prior to medication admin istration. The patient understands and has no additional questions at this time. Problem: Moderate - High Risk Fall Score Description: Bell Fall Score of =/> 25 or indicated by [facility] Re[facility] Assessment Goal: Patient should be free from fall Description: Interventions: 1. [place] to environment 2. Hourly rounds addressing the 4 P's (Pain, Positioning, Possessions, Potty) 3. Clear area of hazards (spills, clutter, electrical cords, unnecessary equipment) 4. Place equipment (bed & TV controls, call light, phone, urinal) within reach 5. Encourage patient to wear glasses and hearing aides as appropriate 6. Maintain bed in lowest position 7. Lock wheels on bed/wheelchair 8. Provide adequate lighting, including night light 9. Assess need for additional bedding, food/fluids, pain med's prior to sleep/routinely 10. Provide gripper slippers or personal non-skid footwear 11. Teach patient and patient customer account representative to maintain environment for safety and engage in all aspects of fall prevention program 12. Remind patient to call for help before getting out of bed 13. Initiate bed/chair/exit alarms supportive devices as appropriate, (chair wedge, no-skid floor mat, raised edge mattress, hip protectors) 14. Locate patient bed assignment for optimal visualization 15. Evaluate and identify Safe Patient Handling Equipment needs 16. Provide supervision when out of bed or chair 17. Utilize gait belt as needed to assist with ambulation 18. Place adaptive equipment (cane, walker) within reach 19. Request patient customer account representative bring adaptive equipment/mobility aids from home or obtain and provide as needed 20. Consult pharmacy regarding effects of med's affecting mobility, cognition, and alternatives 21. Obtain physician order for PT if risk factors associated with mobility are present 22. Obtain physician order for OT as appropriate 23. Utilize diversional activities 24. Educate patient and patient customer account representative how to maintain a safe environment during visitationtimes (notify nurse prior to leaving bedside) 25. Consider appropriateness of medical or non-bilingual medical assistant 26. Set up voiding schedule as appropriate (every 2 hours) Outcome: Progressing Note: Evaluation of progress towards goal: Pt remains free from falls or accidental injury during stay. Fall prevention measures in place. Hourly rounding per RN and maintained. Problem: Respiratory - Adult Goal: Achieves optimal ventilation and oxygenation Description: Patient's goal is: INTERVENTIONS: 1. Assess for changes in respiratory status 2. Assess for changes in mentation and behavior 3. Position to facilitate oxygenation and minimize respiratory effort 4. Oxygen supplementation based on oxygen saturation or ABGs as ordered 5. Consult smoking cessation as indicated 6. Encourage broncho-pulmonary hygiene including cough, deep breathe, Incentive Spirometry, keep HOB elevated as tolerated, and encourage ambulation, as ordered 7. Assess the need for suctioning and obtain order to maintain clear airway 8. Assess and instruct patient to report SOB or any respiratory difficulty 9. Assess the need for Respiratory Therapy support if not already ordered 10. Initiate emergency measures for respiratory failure Outcome: Progressing Note: Evaluation of progress towards goal: Patient requiring 3L of O2 which is baseline. Becomes SOB on exertion. [facility] Plan of care note * Plan of Care - Izabella Rogers RN - 09/10/2023 6:00 PM EDT Problem: Knowledge Deficit Goal: Patient/patient customer account representative demonstrates understanding of disease process, treatment plan,medications, and discharge instructions Description: INTERVENTIONS 1. Complete learning assessment and assess knowledge base 2. Provide teaching at level of understanding 3. Provide teaching via preferred learning method(s) Outcome: Progressing Note: Evaluation of progress towards goal: Pt educated on tx plan for CHF including medications, measuring I&O and weight, and diet. Pt verbalizes understanding of teaching. Problem: Glucose Imbalance Goal: Clinical indication of glucose balance is achieved Description: Patient's goal is: INTERVENTIONS 1. Monitor blood glucose levels as ordered 2. Administer medications as ordered 3. Notify physician of ineffective treatment plan Outcome: Progressing Note: Evaluation of progress towards goal: Pt's blood glucose monitored per provider order and insulin administered per provider order. [facility] History of Present illness Narrative* Julia Man MD - 09/10/2023 10:05 AM EDT Images from the original note were not included. [facility] INTERNAL MEDICINE Hospital Medicine Progress Note Patient: Brian Mandel Date of : 1950 Room: [facility] PCP: Melanie Taylor DO Admission date: 09/08/2023 9:13 AM Encounter date: 09/10/23 SUBJECTIVE Chief complaints: Chief Complaint Patient presents with Shortness of Breath Interval History: Status: improved. No overnight events or new complaints. Leg swelling improved. Breathing improved. Continuing to diurese well. Down 4 L and 12 lb. Review of Systems Review of Systems Constitutional: Negative for activity change, appetite change, chills, diaphoresis, fatigue and fever. HENT: Negative for tinnitus and trouble swallowing. Eyes: Negative for visual disturbance. Respiratory: Positive for shortness of breath (Improving). Negative for cough, chest tightness and wheezing. Cardiovascular: Positive for leg swelling (Improving). Negative for chest pain and palpitations. Gastrointestinal: Negative for abdominal pain, diarrhea, nausea and vomiting. Genitourinary: Negative for difficulty urinating. Skin: Negative for rash. Neurological: Negative for dizziness, syncope, speech difficulty, weakness, light-headedness, numbness and headaches. Psychiatric/Behavioral: Negative for sleep disturbance. OBJECTIVE BP 123/62 Pulse 69 Temp 36.4 C (97.5 F) (Oral) Resp 20 Ht 152.4 cm (5') Wt 103.5 kg (228 lb 1.6 oz) SpO2 98% BMI 44.55 kg/m Intake/Output Summary (Last 24 hours) at 09/10/2023 1005 Last data filed at 09/10/2023 0833 Gross per 24 hour Intake 850 ml Output 2875 ml Net -202 ml Physical Exam Physical Exam Vitals and nursing note reviewed. Constitutional: General: He is not in acute distress. Appearance: He is obese. HENT: Head: Normocephalic and atraumatic. Right Ear: External ear normal. Left Ear: External ear normal. Nose: Nose normal. Mouth/Throat: Mouth: Mucous membranes are moist. Pharynx: Oropharynx is clear. Eyes: Conjunctiva/sclera: Conjunctivae normal. Pupils: Pupils are equal, round, and reactive to light. Neck: Vascular: No carotid bruit or JVD. Cardiovascular: Rate and Rhythm: Normal rate and regular rhythm. Pulses: Normal pulses. Pulmonary: Effort: Pulmonary effort is normal. Breath sounds: Examination of the right-lower field reveals decreased breath sounds. Examination ofthe left-lower field reveals decreased breath sounds. Decreased breath sounds present. Comments: Oxygen at 2 L per nasal cannula Abdominal: General: Bowel sounds are normal. Palpations: Abdomen is soft. Tenderness: There is no abdominal tenderness. There is no right CVA tenderness or left CVA tenderness. Musculoskeletal: Right lower leg: Edema (Nonpitting) present. Left lower le+ Pitting Edema present. Lymphadenopathy: Cervical: No cervical adenopathy. Skin: General: Skin is warm and dry. Capillary Refill: Capillary refill takes 2 to 3 seconds. Coloration: Skin is pale. Neurological: General: No focal deficit present. Mental Status: He is alert and oriented to person, place, and time. Psychiatric: Mood and Affect: Mood normal. Behavior: Behavior normal. Thought Content: Thought content normal. Judgment: Judgment normal. Medications Scheduled: aspirin, 81 mg, oral, Daily atorvastatin, 20 mg, oral, Nightly dapagliflozin propanediol, 10 mg, oral, Daily enoxaparin (LOVENOX) injection, 40 mg, subcutaneous, Daily folic acid, 1 mg, oral, Daily furosemide, 40 mg, intravenous, BID insulin lispro, 2-10 Units, subcutaneous, TID with meals insulin lispro, 2-8 Units, subcutaneous, Nightly metFORMIN XR, 750 mg, oral, Daily with breakfast metoprolol, 12.5 mg, oral, BID pantoprazole, 40 mg, oral, QAM AC PARoxetine, 10 mg, oral, Daily spironolactone, 25 mg, oral, Daily ticagrelor, 90 mg, oral, Q12H LYNN Infusions: dextrose 5 % in water, 100 mL/hr sodium chloride 0.9 %, 20 mL/hr As Needed: acetaminophen acetaminophen albuterol benzonatate calcium gluconate calcium gluconate calcium gluconate dextrose dextrose 5 % in water dextrose 50 % in water (D50W) glucagon (human recombinant) magnesium sulfate magnesium sulfate melatonin nitroglycerin ondansetron potassium chloride OR potassium chloride sodium phosphate IV OR sodium phosphate IV - central line OR sod phos di, mono-K phos mono sodium chloride sodium chloride 0.9 % Allergies: Patient has no known allergies. Labs Recent Results (from the past 24 hour(s)) Bedside Glucose *Place/Obtain serum glucose if >500(>600 MRH) per glucometer. Collection Time: 09/09/23 11:19 AM Result Value Ref Range Bedside glucose 176 (H) 65 - 99 mg/dL Bedside Glucose *Place/Obtain serum glucose if >500(>600 MRH) per glucometer. Collection Time: 09/09/23 11:49 AM Result Value Ref Range Bedside glucose 195 (H) 65 - 99 mg/dL Potassium Collection Time: 09/09/23 12:16 PM Result Value Ref Range Potassium, Bld 3.6 3.5 - 5.0 mmol/L Bedside Glucose *Place/Obtain serum glucose if >500(>600 MRH) per glucometer. Collection Time: 09/09/23 4:33 PM Result Value Ref Range Bedside glucose 150 (H) 65 - 99 mg/dL Potassium Collection Time: 09/09/23 5:04 PM Result Value Ref Range Potassium, Bld 4.7 3.5 - 5.0 mmol/L Bedside Glucose *Place/Obtain serum glucose if >500(>600 MRH) per glucometer. Collection Time: 09/09/23 9:48 PM Result Value Ref Range Bedside glucose 162 (H) 65 - 99 mg/dL Comprehensive metabolic panel Collection Time: 09/10/23 4:26 AM Result Value Ref Range Sodium 136 134 - 146 mmol/L Potassium, Bld 4.0 3.5 - 5.0 mmol/L Chloride 94 (L) 98 - 109 mmol/L CO2 33 (H) 22 - 32 mmol/L Anion gap 9 5 - 15 mmol/L BUN 23 5 - 27 mg/dL Creatinine 1.26 (H) 0.70 - 1.20 mg/dL Glucose 122 (H) 65 - 99 mg/dL Calcium 9.2 8.5 - 10.5 mg/dL Total Protein 7.7 6.0 - 8.0 g/dL Albumin 3.3 3.2 - 5.3 g/dL Alkaline Phosphatase 82 39 - 130 U/L AST 24 0 - 41 U/L ALT 16 0 - 40 U/L Total bilirubin 0.5 0.3 - 1.2 mg/dL eGFR (CKD-EPI)non-race dependent 59 (L) >59 ml/min/1.73sq.m Magnesium Collection Time: 09/10/23 4:26 AM Result Value Ref Range Magnesium 2.0 1.8 - 2.6 mg/dL CBC auto differential Collection Time: 09/10/23 4:26 AM Result Value Ref Range White Blood Cells 11.1 (H) 4.0 - 11.0 X10E9/L RBC count 2.34 (L) 4.10 - 5.70 X10E12/L Hemoglobin 8.0 (L) 13.0 - 17.0 g/dL Hematocrit 24.1 (L) 39 - 49 % MCV 103 (H) 80 - 100 fL MCH 34.2 (H) 27 - 34 pg MCHC 33.2 32 - 36 g/dL RDW 16.9 (H) 11.5 - 15.0 % Platelets 162 150 - 450 X10E9/L MPV 10.8 7 - 12 fL % neutrophils 81.0 % % lymphocytes 11.3 % % monocytes 6.7 % % eosinophils 0.6 % % Basophils 0.4 % Neutrophils Absolute (A) 9.0 (H) 1.5 - 6.6 X10E9/L Lymphocytes Absolute 1.3 1.0 - 3.5 X10E9/L Monocytes Absolute 0.7 0 - 0.9 X10E9/L Eosinophils Absolute 0.1 0.0 - 0.4 X10E9/L Basophils Absolute 0.0 0.0 - 0.2 X10E9/L Radiology Echo limited W/ contrast Result Date: 09/08/2023 Narrative: Left Ventricle: Left ventricle appears normal in size. Wall thickness is normal. Systolic function is normal with an ejection fraction of 55-60%. See wall score diagram for wall motion abnormalities. Pericardium: There is pleural effusion. The study had technical difficulties. The study was difficult due to patient's body habitus and poor acoustic windows. X-ray chest 1 view Result Date: 09/08/2023 Narrative: HISTORY AND/OR TECH NOTES SOB Difficulty breathing Chest pain PROCEDURE AP chest COMPARISON July 23 FINDINGS Sternal wires There is cardiomediastinal prominence There is increased hilar fullness and congestion There is left greater than right pleural effusion There are granular opacities b ilaterally There is suggestion of asymmetric left basilar volume loss and consolidation No visible pneumothorax or apical cavitary process IMPRESSION: [id number] CHF with pleural effusions greater on the left There appears to be asymmetric left basilar consolidation and volume loss. Correlatefor pneumonia or aspiration clinically Suggest follow-up imaging to document clearing and normalization when appropriate CT should be considered if x-ray findings or symptoms persist Finalized by Pa Peres MD on 09/08/2023 9:47 AM HOSPITAL PROBLEM LIST Principal Problem: Acute on chronic congestive heart failure, unspecified heart failure type [place] Active Problems: Anxiety disorder Benign essential hypertension Chronic diastolic congestive heart failure ([facility] Chronic respiratory failure with hypoxia ([facility] 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 Dyslipidemia Gastroesophageal reflux disease without esophagitis Obstructive sleep apnea syndrome Type 2 diabetes mellitus with hyperglycemia, without long-term current use of insulin ([facility] Pleural effusion, left ASSESSMENT & PLAN Acute on chronic diastolic CHF: Elevated BNP. Lasix 40 mg IV b.i.d.. Monitor daily weight and I&O. 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 Echo limited shows same ejection fraction of 55-60%. However does show pericardial effusion. Anxiety disorder: Supportive care. Continue home medications. Hypertension: Normotensive. Continue home medications. Chronic respiratory failure: Baseline home O2 2-3 L. continue oxygen at 3 L per nasal cannula. Titrate up if needed. CAD/dyslipidemia: Continue home aspirin and statin. GERD: Protonix. Sleep apnea: Home CPAP ordered. Patient noncompliant. Dm type 2: Continue home metformin. Monitor blood glucose a.c. and HS cover sliding scale insulin. Pleural effusion: Lasix as above. Continue to monitor. Monitor kidney function and electrolytes daily. Replace electrolytes per protocol. DVT px: Lovenox. DC planning: Likely discharge home with home health tomorrow. Maggie Cruz, SPENCER-RN REFERRAL, 09/10/2023 10:05 AM [facility] Internal Medicine 7AM-7PM (all facilities): EpicChat or page through Smart[employer]. 7PM-7AM ([facility], [facility] Psychiatry and Inpatient Rehab): EpicChat or page, [phone]. 7PM-7AM ([place], [place], [place], [place] and [facility] Rehab): EpicChat or page through Smart[employer]. This note is dictated with the use of M*Modal. Please note that this dictation was completed with computer voice recognition software. Quite often unanticipated grammatical, syntax, homophones, and other interpretive errors are inadvertently transcribed by the computer software. Please disregard these errors. Please excuse any errors that have escaped final proofreading. Maggie Cruz, PER DIEM PHYSICAL THERAPIST ASSISTANT-[facility] 09/10/23 1010 Physician Attestation I, Julia Man MD, personally performed a face to face diagnostic evaluation on this patient. I have reviewed the note authored by the advance practice provider including history, review of systems,physical examination,medical decision making and agree with the assessment and plan as written. I have seen and evaluated the patient, I have repeated the benoit portions of the physical exam and concur with the RASHAUN findings. I have reviewed all laboratory findings and imaging reports/films. I agree with the plan as noted. * Katelyn Jackson RN - 09/09/2023 5:09 PM EDT Telephoned dietary per patient request, placed dinner order. * Julia Man MD - 09/09/2023 1:02 PM EDT Images from the original note were not included. [facility] INTERNAL MEDICINE [facility] Medicine Progress Note Patient: Brian Mandel Date of : 1950 Room: [facility]/ PCP: Melanie Taylor DO Admission date: 09/08/2023 9:13 AM Encounter date: 09/09/23 SUBJECTIVE Chief complaints: Chief Complaint Patient presents with Shortness of Breath Interval History: Status: improved. No overnight events or new complaints. Leg swelling improved. Breathing improved. Still exertional dyspnea. Diuresing well. Down to 0.5 L and 8 lb. Review of Systems Review of Systems Constitutional: Negative for activity change, appetite change, chills, diaphoresis, fatigue and fever. HENT: Negative for tinnitus and trouble swallowing. Eyes: Negative for visual disturbance. Respiratory: Positive for shortness of breath (Exertional). Negative for cough, chest tightness andwheezing. Cardiovascular: Negative for chest pain, palpitations and leg swelling. Gastrointestinal: Negative for abdominal pain, diarrhea, nausea and vomiting. Genitourinary: Negative for difficulty urinating. Skin: Negative for rash. Neurological: Negative for dizziness, syncope, speech difficulty, weakness, light-headedness, numbness and headaches. Psychiatric/Behavioral: Negative for sleep disturbance. OBJECTIVE BP 101/54 Pulse 68 Temp 36.5 C (97.7 F) (Oral) Resp 18 Ht 152.4 cm (5') Wt 105.4 kg (232 lb 6.4 oz) SpO2 97% BMI 45.39 kg/m Intake/Output Summary (Last 24 hours) at 09/09/2023 1302 Last data filed at 09/09/2023 1059 Gross per 24 hour Intake 240 ml Output 2500 ml Net -2260 ml Physical Exam Physical Exam Vitals and nursing note reviewed. Constitutional: General: He is not in acute distress. Appearance: He is obese. HENT: Head: Normocephalic and atraumatic. Right Ear: External ear normal. Left Ear: External ear normal. Nose: Nose normal. Mouth/Throat: Mouth: Mucous membranes are moist. Pharynx: Oropharynx is clear. Eyes: Conjunctiva/sclera: Conjunctivae normal. Pupils: Pupils are equal, round, and reactive to light. Neck: Vascular: No carotid bruit or JVD. Cardiovascular: Rate and Rhythm: Normal rate and regular rhythm. Pulses: Normal pulses. Pulmonary: Effort: Pulmonary effort is normal. Breath sounds: Examination of the right-lower field reveals decreased breath sounds. Examination ofthe left-lower field reveals decreased breath sounds. Decreased breath sounds present. No wheezing or rales. Abdominal: General: Bowel sounds are normal. Palpations: Abdomen is soft. Tenderness: There is no abdominal tenderness. There is no right CVA tenderness or left CVA tenderness. Musculoskeletal: Right lower le+ Pitting Edema present. Left lower le+ Pitting Edema present. Lymphadenopathy: Cervical: No cervical adenopathy. Skin: General: Skin is warm and dry. Capillary Refill: Capillary refill takes 2 to 3 seconds. Coloration: Skin is pale. Neurological: General: No focal deficit present. Mental Status: He is alert and oriented to person, place, and time. Psychiatric: Mood and Affect: Mood normal. Behavior: Behavior normal. Thought Content: Thought content normal. Judgment: Judgment normal. Medications Scheduled: aspirin, 81 mg, oral, Daily atorvastatin, 20 mg, oral, Nightly dapagliflozin propanediol, 10 mg, oral, Daily enoxaparin (LOVENOX) injection, 40 mg, subcutaneous, Daily folic acid, 1 mg, oral, Daily furosemide, 40 mg, intravenous, BID insulin lispro, 2-10 Units, subcutaneous, TID with meals insulin lispro, 2-8 Units, subcutaneous, Nightly metFORMIN XR, 750 mg, oral, Daily with breakfast metoprolol, 12.5 mg, oral, BID pantoprazole, 40 mg, oral, QAM AC PARoxetine, 10 mg, oral, Daily spironolactone, 25 mg, oral, Daily Infusions: dextrose 5 % in water, 100 mL/hr sodium chloride 0.9 %, 20 mL/hr As Needed: acetaminophen acetaminophen albuterol benzonatate calcium gluconate calcium gluconate calcium gluconate dextrose dextrose 5 % in water dextrose 50 % in water (D50W) glucagon (human recombinant) magnesium sulfate magnesium sulfate melatonin nitroglycerin ondansetron potassium chloride OR potassium chloride sodium phosphate IV OR sodium phosphate IV - central line OR sod phos di, mono-K phos mono sodium chloride sodium chloride 0.9 % Allergies: Patient has no known allergies. Labs Recent Results (from the past 24 hour(s)) Bedside Glucose *Place/Obtain serum glucose if >500(>600 MRH) per glucometer. Collection Time: 09/08/23 3:41 PM Result Value Ref Range Bedside glucose 177 (H) 65 - 99 mg/dL Bedside Glucose *Place/Obtain serum glucose if >500(>600 MRH) per glucometer. Collection Time: 09/08/23 6:10 PM Result Value Ref Range Bedside glucose 271 (H) 65 - 99 mg/dL Magnesium Collection Time: 09/08/23 7:58 PM Result Value Ref Range Magnesium 1.5 (L) 1.8 - 2.6 mg/dL Bedside Glucose *Place/Obtain serum glucose if >500(>600 MRH) per glucometer. Collection Time: 09/08/23 9:39 PM Result Value Ref Range Bedside glucose 325 (H) 65 - 99 mg/dL Comprehensive metabolic panel Collection Time: 09/09/23 5:03 AM Result Value Ref Range Sodium 137 134 - 146 mmol/L Potassium, Bld 3.8 3.5 - 5.0 mmol/L Chloride 98 98 - 109 mmol/L CO2 30 22 - 32 mmol/L Anion gap 9 5 - 15 mmol/L BUN 15 5 - 27 mg/dL Creatinine 1.19 0.70 - 1.20 mg/dL Glucose 153 (H) 65 - 99 mg/dL Calcium 8.8 8.5 - 10.5 mg/dL Total Protein 7.0 6.0 - 8.0 g/dL Albumin 2.9 (L) 3.2 - 5.3 g/dL Alkaline Phosphatase 85 39 - 130 U/L AST 23 0 - 41 U/L ALT 16 0 - 40 U/L Total bilirubin 0.4 0.3 - 1.2 mg/dL eGFR (CKD-EPI)non-race dependent 64 >59 ml/min/1.73sq.m Magnesium Collection Time: 09/09/23 5:03 AM Result Value Ref Range Magnesium 2.5 1.8 - 2.6 mg/dL CBC auto differential Collection Time: 09/09/23 5:03 AM Result Value Ref Range White Blood Cells 5.4 4.0 - 11.0 X10E9/L RBC count 2.17 (L) 4.10 - 5.70 X10E12/L Hemoglobin 7.3 (L) 13.0 - 17.0 g/dL Hematocrit 22.3 (L) 39 - 49 % MCV 103 (H) 80 - 100 fL MCH 33.7 27 - 34 pg MCHC 32.8 32 - 36 g/dL RDW 16.8 (H) 11.5 - 15.0 % Platelets 136 (L) 150 - 450 X10E9/L MPV 10.7 7 - 12 fL % neutrophils 86.6 % % lymphocytes 9.2 % % monocytes 4.1 % % eosinophils 0.0 % % Basophils 0.1 % Neutrophils Absolute (A) 4.7 1.5 - 6.6 X10E9/L Lymphocytes Absolute 0.5 (L) 1.0 - 3.5 X10E9/L Monocytes Absolute 0.2 0 - 0.9 X10E9/L Eosinophils Absolute 0.0 0.0 - 0.4 X10E9/L Basophils Absolute 0.0 0.0 - 0.2 X10E9/L Bedside Glucose *Place/Obtain serum glucose if >500(>600 MRH) per glucometer. Collection Time: 09/09/23 11:19 AM Result Value Ref Range Bedside glucose 176 (H) 65 - 99 mg/dL Bedside Glucose *Place/Obtain serum glucose if >500(>600 MRH) per glucometer. Collection Time: 09/09/23 11:49 AM Result Value Ref Range Bedside glucose 195 (H) 65 - 99 mg/dL Potassium Collection Time: 09/09/23 12:16 PM Result Value Ref Range Potassium, Bld 3.6 3.5 - 5.0 mmol/L Radiology Echo limited W/ contrast Result Date: 09/08/2023 Narrative: Left Ventricle: Left ventricle appears normal in size. Wall thickness is normal. Systolic function is normal with an ejection fraction of 55-60%. See wall score diagram for wall motion abnormalities. Pericardium: There is pleural effusion. The study had technical difficulties. The study was difficult due to patient's body habitus and poor acoustic windows. X-ray chest 1 view Result Date: 09/08/2023 Narrative: HISTORY AND/OR TECH NOTES SOB Difficulty breathing Chest pain PROCEDURE AP chest COMPARISON July 23 FINDINGS Sternal wires There is cardiomediastinal prominence There is increased hilar fullness and congestion There is left greater than right pleural effusion There are granular opacities b ilaterally There is suggestion of asymmetric left basilar volume loss and consolidation No visible pneumothorax or apical cavitary process IMPRESSION: [id number] CHF with pleural effusions greater on the left There appears to be asymmetric left basilar consolidation and volume loss. Correlatefor pneumonia or aspiration clinically Suggest follow-up imaging to document clearing and normalization when appropriate CT should be considered if x-ray findings or symptoms persist Finalized by Pa Peres MD on 09/08/2023 9:47 AM HOSPITAL PROBLEM LIST Principal Problem: Acute on chronic congestive heart failure, unspecified heart failure type ([facility]) Active Problems: Anxiety disorder Benign essential hypertension Chronic diastolic congestive heart failure ([facility]) Chronic respiratory failure with hypoxia [place] 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 Dyslipidemia Gastroesophageal reflux disease without esophagitis Obstructive sleep apnea syndrome Type 2 diabetes mellitus with hyperglycemia, without long-term current use of insulin ([facility]) Pleural effusion, left ASSESSMENT & PLAN Acute on chronic diastolic CHF: Elevated BNP. Lasix 40 mg IV b.i.d.. Monitor daily weight and I&O. 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 Reviewed echo from 1 month ago the shows preserved LVEF of 55 to 60%. Echo limited shows same ejection fraction of 55-60%. However does show pericardial effusion. Anxiety disorder: Supportive care. Continue home medications. Hypertension: Normotensive. Continue home medications. Chronic respiratory failure: Baseline home O2 2-3 L. continue oxygen at 3 L per nasal cannula. Titrate up if needed. CAD/dyslipidemia: Continue home aspirin and statin. GERD: Protonix. Sleep apnea: Home CPAP ordered. Dm type 2: Continue home metformin. Monitor blood glucose a.c. and HS cover sliding scale insulin. Pleural effusion: Lasix as above. Continue to monitor. Monitor kidney function and electrolytes daily. Replace electrolytes per protocol. DVT px: Lovenox. DC planning: Discharge home in 1-2 days. APRIL Agrawal, 09/09/2023 1:02 PM [facility] Internal Medicine 7AM-7PM (all facilities): MotionDSPt or page through Smartmarket. 7PM-7AM ([facility], [facility] Psychiatry and Inpatient Rehab): MotionDSPt or page, [phone]. 7PM-7AM ([place], [place], [place], [place] and [facility] Rehab): EpicChat or page through Smart[employer]. This note is dictated with the use of M*Modal. Please note that this dictation was completed with computer voice recognition software. Quite often unanticipated grammatical, syntax, homophones, and other interpretive errors are inadvertently transcribed by the computer software. Please disregard these errors. Please excuse any errors that have escaped final proofreading. APRIL Agrawal 09/09/23 1305 Physician Attestation I, Julia Man MD, personally performed a face to face diagnostic evaluation on this patient. I have reviewed the note authored by the advance practice provider including history, review of systems,physical examination,medical decision making and agree with the assessment and plan as written. I have seen and evaluated the patient, I have repeated the benoit portions of the physical exam and concur with the RASHAUN findings. I have reviewed all laboratory findings and imaging reports/films. I agree with the plan as noted. * Brant Narayanan MD - 09/09/2023 12:55 PM EDT Images from the original note were not included. [facility] BRANT Marcial MD, personally performed the face to face diagnostic evaluation on this patient. My findings are as follows: Subjective: Denies chest pain. States shortness of breath is improved Objective: BP 101/54 Pulse 68 Temp 36.5 C (97.7 F) (Oral) Resp 18 Ht 152.4 cm (5') Wt 105.4 kg (232 lb 6.4 oz) SpO2 97% BMI 45.39 kg/m General: no acute distress Cardiac: Regular rate and rhythm S1 S2 Lungs: Clear to ausculation Ext: no edema Plan: Normal left ventricular systolic function on limited echo 09/08/2023 2. Moderate aortic stenosis on echocardiogram 06/2023 3. Known ASCVD -stent 07/19/2023 to distal left main/ostial circumflex; must remain on antiplatelet therapy/Brilinta and aspirin --history of CABG 4. Acute on chronic heart failure with preserved ejection fraction 5. Anemia with hemoglobin of 7.3 -- patient reports that this is chronic. This is very challenging with his ASCVD and recent stenting necessitating antiplatelets 6. Primary hypertension 7. Type 2 diabetes 8. Hyperlipidemia associated with type 2 diabetes -- on atorvastatin 9. COPD 10. Megaloblastic anemia/pancytopenia -hemoglobin 7.3 10. Obstructive sleep apnea 11. BMI greater than 40 12. Hypomagnesemia, repleting Discussed with nurse BRANT Narayanan MD This note was completed using a voice taffy puller system. Every effort was made to ensure accuracy. However, inadvertent computerized taffy puller errors may be present. * Juju Benz RCP - 09/08/2023 7:39 PM EDT Spoke with pt about SARAH. Pt said he has a home cpap/bipap unit, but it is very old and he does not wear it. Pt says he just wears nasal cannula instead. Pt declines use of a hospital unit at this time. RN notified. [facility] Progress note* PT/OT/RESEARCH TEST ENGINE OPERATOR - Nunu Pinon PTA - 09/10/2023 8:27 AM EDT Physical Therapy Treatment Discharge Recommendations PT Recommendations: Home 6 Clicks: Basic Mobility Turning from your back to your side while in a flat bed without using bed rails?: None Moving from lying on your back to sitting on side of flat bed without using bed rails?: None Moving to and from bed to a chair (including w/c)?: None Standing up from a chair using your arms (e.g. w/c or bedside chair)?: None To walk in hospital room?: A little Climbing 3-5 steps with a railing?: A little Scoring 6 Clicks: Basic Mobility Raw Score: 22 CMS G Code Modifier: CJ Therapy Plan Need for skilled Physical Therapy to address deficits in functional mobility due to a status decline resulting from acute and chronic CHF. Patient was resting in bed upon arrival. Bed mobility and transfers SBA. Ambulated in room to commode and chair, 40' x 1, SBA with RW. Patient resting in chair with chair alarm on. Breakfast ordered and all needs met. Nursing notified. PT Treatment/Interventions: Functional transfer training, LE strengthening/ROM, Endurance training,Balance, Stair training, Bed mobility, Gait training, Functional activities, Neuromuscular reeducation PT Frequency: 5-6days/week PT Duration: 10 days Patient Response to Treatment: Progressing toward goals Assessment Patient Assessment Therapy Problem List: Decreased ADL status, Decreased balance, Decreased endurance, Decreased high-level ADLs, Decreased mobility, Decreased safe judgement during ADL, Decreased self-care trans, Decreased UE strength Patient Response to Treatment: Progressing toward goals Rehab Prognosis: Good, With continued PT status post acute discharge Visit RN Communication: Yes Medical Record Reviewed: Yes PT Type of Visit: Treatment Precautions Oxygen Used: yes Other: Fall risk Pain Assessment Pain Assessment: No/denies pain Cognition Overall Cognitive Status: Within Functional Limits Bed Mobility Rolling: Stand by assist Supine to Sit: Stand by assist Other: HOB elevated for patient to sit up Transfers Stand to Sit: Standby assist Toilet Transfers: Standby assist Other: Patient needed to go to the restroom, transfers from toilet SBA Gait Base of Support: Within Functional Limits Pattern: Decreased ramin, Antalgic gait Gait Assistance: Standby assist Assistive Device: Rolling walker Gait Distance: 40' with RW to assess safety for in home distances for safe discharge. Other: Ambulated in room with the use of non-skid socks and gait belt. Balance Sitting Balance: Static: Good Sitting Balance: Dynamic: Good Standing Balance: Static: Good Standing Balance: Dynamic: Fair Other: Fair walking balance with the use of rolling walker Plan Physical Therapy Care Plan Physical Therapy Care Plan (Active) Template: PT - Physical Therapy Problem: Bed Mobility Dates: Start: 09/09/23 Disciplines: PT Goal: Patient will perform bed mobility with Stand By Assist Dates: Start: 09/09/23 Expected End: 09/18/23 Description: Goal Description: Pt to perform bed mobility in order to be able to decrease risk of further skin breakdown. Disciplines: PT Outcomes Date/Time User Outcome 09/10/23825 Nunu Pinon PTA Progressing Goal Note filed on 09/10/23825 by Nunu Pinon PTA Evaluation of progress towards goal: SBA for bed mobility with the HOB elevated Problem: Gait Dates: Start: 09/09/23 Disciplines: PT Goal: Patient will perform gait with Stand By Assist Dates: Start: 09/09/23 Expected End: 09/18/23 Description: Pt to be able to ambulate 100ft with walker to be able to safely manage household distances at discharge. Disciplines: PT Outcomes Date/Time User Outcome 09/10/23825 Nunu Pinon PTA Progressing Goal Note filed on 09/10/23825 by Nunu Pinon PTA Evaluation of progress towards goal: Ambulated in room 40' x 1, SBA with RW Problem: Stairs/Curb Dates: Start: 09/09/23 Disciplines: PT Goal: Patient will perform stairs/curb with Stand By Assist Dates: Start: 09/09/23 Expected End: 09/18/23 Description: Pt to ascend and descend 4 stairs with handrails to be able to safely enter house at discharge. Disciplines: PT Problem: Standing Balance Dates: Start: 09/09/23 Disciplines: PT Goal: Improve balance to good Dates: Start: 09/09/23 Expected End: 09/18/23 Description: Static Dynamic Pt to have balance of good in order to decrease risk of falls at discharge. Disciplines: PT Outcomes Date/Time User Outcome 09/10/23825 Nunu Pinon PTA Progressing Goal Note filed on 09/10/23825 by Nunu Pinon PTA Evaluation of progress towards goal: Fair standing balance with the use of rolling walker Problem: Transfers Dates: Start: 09/09/23 Disciplines: PT Goal: Patient will perform transfers with Stand By Assist Dates: Start: 09/09/23 Expected End: 09/18/23 Description: Goal Description: Pt to be able to safely transfer with least amount of assistance to demonstrate decreased need for caregiver assistance and ease with home transfers. Disciplines: PT Outcomes Date/Time User Outcome 09/10/23825 Nunu Pinon PTA Progressing Goal Note filed on 09/10/23825 by Nunu Pinon PTA Evaluation of progress towards goal: SBA for transfers Physical Therapy Care Plan (Resolved) There are no resolved problems. Principal Problem: Acute on chronic congestive heart failure, unspecified heart failure type ([facility]) Active Problems: Anxiety disorder Benign essential hypertension Chronic diastolic congestive heart failure ([facility]) Chronic respiratory failure with hypoxia ([facility]) 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 Dyslipidemia Gastroesophageal reflux disease without esophagitis Obstructive sleep apnea syndrome Type 2 diabetes mellitus with hyperglycemia, without long-term current use of insulin ([facility]) Pleural effusion, left Associated attestation - Maria Antonia Aden, PT - 09/10/2023 10:30 AM EDT I have reviewed and agree with this note and education documentation for this visit. [facility]07-20-2024 Plan of care note* Plan of Care - Tasia Huynh RN - 09/10/2023 3:04 AM EDT Problem: Pain Goal: Patient goal is pain score less than 4, able to rest, and participant in treatment plan as appropriate Description: INTERVENTIONS: 1. Encourage patient or legal customer account representative to report early pain and ask for pain medicine when needed 2. Assess pain using appropriate pain scale and include the scale used when documenting 3. Administer analgesics based on type and severity of pain and evaluate response within appropriate time frame 4. Implement non-pharmacological measures as appropriate and evaluate response 5. Consider cultural and social influences on pain and pain management 6. Notify LIP if interventions ineffective or patient reports new pain 7. Monitor vital signs including pulse ox, end-tidal CO2 based on pain intervention 8. Reassess pain per policy 9. Teach patient or legal customer account representative interventions for comforting Outcome: Progressing Note: Evaluation of progress towards goal: No c/o pain voiced. No nonverbal s/sx pain noted. Problem: Safety Goal: Patient will be injury free during hospitalization Description: INTERVENTIONS: 1. Assess patient's risk for falls and implement fall prevention plan of care per policy 2. Provide and maintain a safe environment 3. Proper use of double Identifiers 4. Medication administration using the 5 rights 5. Hand hygiene 6. Specimens are labeled at the bedside 7. Instruct patient/ patient customer account representative about use of safety devices 8. Include patient/ patient customer account representative in decisions related to safety Outcome: Progressing Note: Evaluation of progress towards goal: Remains free from injury. Safety precautions maintained. Problem: Moderate - High Risk Fall Score Description: Bell Fall Score of =/> 25 or indicated by [facility] Assessment Goal: Patient should be free from fall Description: Interventions: 1. [place] to environment 2. Hourly rounds addressing the 4 P's (Pain, Positioning, Possessions, Potty) 3. Clear area of hazards (spills, clutter, electrical cords, unnecessary equipment) 4. Place equipment (bed & TV controls, call light, phone, urinal) within reach 5. Encourage patient to wear glasses and hearing aides as appropriate 6. Maintain bed in lowest position 7. Lock wheels on bed/wheelchair 8. Provide adequate lighting, including night light 9. Assess need for additional bedding, food/fluids, pain med's prior to sleep/routinely 10. Provide gripper slippers or personal non-skid footwear 11. Teach patient and patient customer account representative to maintain environment for safety and engage in all aspects of fall prevention program 12. Remind patient to call for help before getting out of bed 13. Initiate bed/chair/exit alarms supportive devices as appropriate, (chair wedge, no-skid floor mat, raised edge mattress, hip protectors) 14. Locate patient bed assignment for optimal visualization 15. Evaluate and identify Safe Patient Handling Equipment needs 16. Provide supervision when out of bed or chair 17. Utilize gait belt as needed to assist with ambulation 18. Place adaptive equipment (cane, walker) within reach 19. Request patient customer account representative bring adaptive equipment/mobility aids from home or obtain and provide as needed 20. Consult pharmacy regarding effects of med's affecting mobility, cognition, and alternatives 21. Obtain physician order for PT if risk factors associated with mobility are present 22. Obtain physician order for OT as appropriate 23. Utilize diversional activities 24. Educate patient and patient customer account representative how to maintain a safe environment during visitationtimes (notify nurse prior to leaving bedside) 25. Consider appropriateness of medical or non-bilingual medical assistant 26. Set up voiding schedule as appropriate (every 2 hours) Outcome: Progressing Note: Evaluation of progress towards goal: Remains free from falls. Fall precautions maintained. Problem: Respiratory - Adult Goal: Achieves optimal ventilation and oxygenation Description: Patient's goal is: INTERVENTIONS: 1. Assess for changes in respiratory status 2. Assess for changes in mentation and behavior 3. Position to facilitate oxygenation and minimize respiratory effort 4. Oxygen supplementation based on oxygen saturation or ABGs as ordered 5. Consult smoking cessation as indicated 6. Encourage broncho-pulmonary hygiene including cough, deep breathe, Incentive Spirometry, keep HOB elevated as tolerated, and encourage ambulation, as ordered 7. Assess the need for suctioning and obtain order to maintain clear airway 8. Assess and instruct patient to report SOB or any respiratory difficulty 9. Assess the need for Respiratory Therapy support if not already ordered 10. Initiate emergency measures for respiratory failure Outcome: Progressing Note: Evaluation of progress towards goal: No resp distress noted, sats wnl on 3lpm NC. RR wnl. Problem: Glucose Imbalance Goal: Clinical indication of glucose balance is achieved Description: Patient's goal is: INTERVENTIONS 1. Monitor blood glucose levels as ordered 2. Administer medications as ordered 3. Notify physician of ineffective treatment plan Outcome: Progressing Note: Evaluation of progress towards goal: No coverage required for HS FSBS . [facility]07-19-2024 Plan of care note* Plan of Care - Izabella Rogers RN - 09/09/2023 3:24 PM EDT Problem: Knowledge Deficit Goal: Patient/patient customer account representative demonstrates understanding of disease process, treatment plan,medications, and discharge instructions Description: INTERVENTIONS 1. Complete learning assessment and assess knowledge base 2. Provide teaching at level of understanding 3. Provide teaching via preferred learning method(s) Outcome: Progressing Note: Evaluation of progress towards goal: POC discussed with patient for tx of acute on chronic CHF including medications, diet, measuring I&O, and safety precautions. Questions answered PRN. Problem: Glucose Imbalance Goal: Clinical indication of glucose balance is achieved Description: Patient's goal is: INTERVENTIONS 1. Monitor blood glucose levels as ordered 2. Administer medications as ordered 3. Notify physician of ineffective treatment plan Outcome: Progressing Note: Evaluation of progress towards goal: Pt's blood glucose monitored according to provider order. Insulin administered per provider order. [facility]07-19-2024 Progress note* PT/OT/RESEARCH TEST ENGINE OPERATOR - SREEKANTH Ayala - 09/09/2023 1:41 PM EDT Occupational Therapy Evaluation Discharge Recommendations OT Recommendations : Home Home Recommendations: Intermittent caregiver support for: (ADLs, house hold chores) Post Discharge Therapy Recommendations: Home Occupational Therapy Therapy Plan Need for skilled Occupational Therapy to address deficits in ADL independence and functional mobility due to a status decline resulting from acute on chronic CHF. Past Medical History: Diagnosis Date Acute coronary syndrome ([facility] Anxiety disorder Chronic obstructive asthma with exacerbation ([facility] COPD (chronic obstructive pulmonary disease) ([facility] Diabetes mellitus type 2, controlled ([facility]) Essential hypertension Folate deficiency anemia Heart failure ([facility]) Megaloblastic anemia Muscle weakness (generalized) Myocardial infarct ([facility]) Obesity Obstructive sleep apnea SARAH (obstructive sleep apnea) Pancytopenia ([facility]) Presence of coronary artery bypass graft stent Supplemental oxygen dependent Past Surgical History: Procedure Laterality Date CARDIAC SURGERY 6 Clicks: Daily Activity Putting on and taking off regular lower body clothing?: A little Bathing (including washing, rinsing, drying)?: A little Toileting, which includes using toilet, bedpan or urinal?: A little Putting on and taking off regular upper body clothing?: A little Taking care of personal grooming such as brushing teeth?: A little Eating meals?: None Scoring Daily Activity Raw Score: 19 [facility] G Code Modifier: CK' OT Treatment/Interventions: ADL retraining, Functional transfer training, UE strengthening/ROM, Balance OT Frequency: Other (comment) (1-5x week) OT Duration: 10 days Assessment Patient Assessment Therapy Problem List: Decreased ADL status, Decreased balance, Decreased endurance, Decreased high-level ADLs, Decreased mobility, Decreased safe judgement during ADL, Decreased self-care trans, Decreased UE strength Patient Response to Treatment: Tolerated evaluation without adverse reaction Mood/Affect: Appropriate for circumstances Rehab Prognosis: Good, With continued OT status post acute discharge Visit RN Communication: Yes Medical Record Reviewed: Yes OT Type of Visit: Evaluation Precautions Activity: Early mobility ok pass, Ok to evaluate per Anusha ALAS Equipment: rolling walker, nonskid socks, O2 Telemetry/Lawn Mower Operator: Yes Oxygen Used: 3L O2 NC Other: Fall risk Pain Assessment Pain Assessment: 0-10 Pain Score: 5 Pain Type: Chronic pain Pain Location: Back Pain Orientation: Lower Pain Descriptors: Other (Comment) (just hurts) Pain Frequency: Constant/continuous Pain Onset: Ongoing Clinical Progression: Not changed Home Living Type of Home: Trailer Home Layout: One level Stairs to Enter: 4 Hand Rails: Bilateral Stairs in Home: 0 Bathroom Shower/Tub: Tub/shower unit Bathroom Toilet: Standard Bathroom Equipment: Grab bars in shower, Shower chair, Hand-held shower, Grab bars around toilet Bathroom Accessibility: Accessible via walker Home Equipment: Rolling walker, Cane, Damper Worker, Sock aid, Long-handled shoehorn, Home oxygen, Other (Comment) (rollator) Prior Function Lives With: Alone Receives Help From: Family Level of Mobility: Independent with ADLs and functional transfers or gait (with use of RW) Homemaking Assistance: Independent Other: Pt noted he is typically ind with ADLs, however, he has been having more difficulty and wanting help at home. Pt takes care of his own cooking, cleaning and laundry but would also like some help in the home. 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 ADL / IADL Grooming Assistance: Contact guard assist Grooming Deficit: Steadying Bathing/Showering Assistance: Contact guard assist Toilet/Commode Assistance: Contact guard assist UE Dressing Assistance: Standby assist LE Dressing Assistance: Contact guard assist LE Dressing Deficit: Use of adaptive equipment Footwear Assistance: Contact guard assist Footwear Deficit: Other (Comment) (with use of sock ai) Other: Pt notes he uses AE for lower body clothing. Pt able to stand well enough at sink to complete hygiene and grooming tasks as well as toileting. CGA for transfer. Home Management - IADL Other: Pt notes he uses AE for lower body clothing. Pt able to stand well enough at sink to complete hygiene and grooming tasks as well as toileting. CGA for transfer. Hearing / Speech / Vision Hearing: Within Functional Limits Speech: Within Functional Limits Current Vision: Wears glasses only for reading Visual History: Cataracts, Surgical intervention Cognition Overall Cognitive Status: Within Functional Limits Sensation Overall Sensation Status: Within Functional Limits Perception / Proprioception Overall Status: Within Functional Limits Bed Mobility Supine to Sit: Stand by assist, Right Sit to Supine: Stand by assist, Left Other: HOB elevated and use of bed rail getting out to edge of bed as well as getting into bed. Transfers Sit to Stand: Standby assist Stand to Sit: Standby assist Toilet Transfers: Contact guard assist Gait Gait Assistance: Standby assist Assistive Device: Rolling walker Gait Distance: 40' with RW to assess safety for in home distances for safe discharge. Balance Sitting Balance: Static: Good Sitting Balance: Dynamic: Good Standing Balance: Static: Good Standing Balance: Dynamic: Fair Other: Pt notes he does not typically bend down to retrieve items due to back pain and getting dizzy. Pt uses recruitment coordinator. No LOB at this time. RUE Assessment: Exceptions to WFL RUE Strength RUE Overall Strength: Within Functional Limits - able to perform ADL tasks with strength (4+/5 grossly) LUE Assessment: Exceptions to WFL LUE Strength LUE Overall Strength: Within Functional Limits - able to perform ADL tasks with strength (4+/5 grossly) Activity Tolerance Endurance: Tolerates <30 minutes activity WITHOUT vital sign changes Plan Occupational Therapy Care Plan Occupational Therapy Care Plan (Active) Template: OT - Occupational Therapy Problem: Activity Tolerance Dates: Start: 09/09/23 Disciplines: OT Goal: Tolerate 30 minutes of activity WITH rest breaks Dates: Start: 09/09/23 Expected End: 09/18/23 Description: Goal Description: Pt will tolerate increased activity tolerance in order to safely complete I/ADLs without difficulty. Disciplines: OT Problem: Other (Customize) Dates: Start: 09/09/23 Disciplines: OT Goal: Improve Dates: Start: 09/09/23 Expected End: 09/18/23 Description: Goal Description: Pt will complete ADLs with SBA to increase independence. Disciplines: OT Problem: Standing Balance Dates: Start: 09/09/23 Disciplines: OT Goal: Improve balance to good Dates: Start: 09/09/23 Expected End: 09/18/23 Description: During standing ADLs and functional transfers to increase safety. Disciplines: OT Problem: Strength Dates: Start: 09/09/23 Disciplines: OT Goal: Improve strength Dates: Start: 09/09/23 Expected End: 09/18/23 Description: Of extremity/ location: B UEs To facilitate: increased ability to complete ADLs and mobility. Disciplines: OT Occupational Therapy Care Plan (Resolved) There are no resolved problems. Principal Problem: Acute on chronic congestive heart failure, unspecified heart failure type ([facility]) Active Problems: Anxiety disorder Benign essential hypertension Chronic diastolic congestive heart failure ([facility]) Chronic respiratory failure with hypoxia ([facility]) 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 Dyslipidemia Gastroesophageal reflux disease without esophagitis Obstructive sleep apnea syndrome Type 2 diabetes mellitus with hyperglycemia, without long-term current use of insulin ([facility]) Pleural effusion, left [employer] Work Phone: [phone]) 371-269707-19-2024 Progress note* Discharge Planning Note - Lakshmi Eastman RN - 09/09/2023 11:36 AM EDT Images from the original note were not included. DISCHARGE PLANNING NOTE Discharge Planning Assessment Brian Mandel Admit Status: Observation Meet: Yes Readmission Risk: N/A. Date of Admission: 09/08/2023 GMLOS: Observation < 48 hours Target Discharge Date: Discharge Planning Assessment completed at bedside. Director Of Brand Marketing identified self and role to the patient.Patient is agreeable to the assessment and discussion of a safe discharge plan. 09/09/23 1131 Discharge Disposition Discharge Disposition Home with Home Health County Information [facility] [place] Patient Information Primary Caregiver Self Support System Friends;Extended family Income Information Income Information Retired/Pension/Social Security Referral To Community Resources Denies needs Discharge Planning Living Arrangements Alone Support Systems Family members;Neighbors Assistance Needed Patient agrees to home health care at discharge. Denies need for SNF. Type of Residence Private residence Home Care Services No Community Agencies Currently Utilized None Established DME Comments Oxygen at home with 2 liters at baseline. Walker Patient expects to be discharged to: Home with Home Health Care Does the patient need discharge transport arranged? No Services Requested Discharge Disposition: Home with home health services Does the patient need discharge transportation arranged?: No Patient choice offered: Yes List Provided: Yes [facility] List Provided: Home Care (unable to print list as [facility] is down.) Initial DC Assessment Completed: Yes Pharmacy:[facility] in [place], [place] PCP: Dr. James Villanueva Transportation at Time of Discharge: Family Patient will make her own follow up appointments: no Patient Goals: Goals home with home health care (pt-stated) Evaluation of progress towards goal: Patient is requesting home health care. Requested services RN/Aid and if [facility] can accept she will require telehealth for CHF maintenance. PT Recommends: OT Recommends: [facility] is currently down. Patient was provided a verbal list of home health care companies. [facility] was selected for the tele health at home. Plan to prevent readmission: [facility] if accepts patient will enroll patient int he teleheatlh program for continued management of CHF. Patient does not endorse any questions at this time. Patient Discharge Plan: Home with Home Health pending acceptance for RN/Aid/telehealth program for maintenance of CHF. Follow up appointment as scheduled below (tasked to transition center): Dr. James Villanueva (PCP) follow up in 7-10 days. Follow up with [facility] in [place] in 2-3 weeks. - Lakshmi Eastman RN 09/09/23 11:47 AM [id number] Progress note* PT/OT/RESEARCH TEST ENGINE OPERATOR - Shreya Bueno, PT - 09/09/2023 11:12 AM EDT Physical Therapy Evaluation Discharge Recommendations PT Recommendations: Home Home Recommendations: Intermittent caregiver support for: Post Discharge Therapy Recommendations: Home Physical Therapy Forestry Engineer Support for-: Mobility Deficits, ADL Deficits Past Medical History: Diagnosis Date Acute coronary syndrome ([facility] Anxiety disorder Chronic obstructive asthma with exacerbation [place]) COPD (chronic obstructive pulmonary disease) ([facility]) Diabetes mellitus type 2, controlled ([facility]) Essential hypertension Folate deficiency anemia Heart failure ([facility]) Megaloblastic anemia Muscle weakness (generalized) Myocardial infarct ([facility]) Obesity Obstructive sleep apnea SARAH (obstructive sleep apnea) Pancytopenia ([facility]) Presence of coronary artery bypass graft stent Supplemental oxygen dependent Past Surgical History: Procedure Laterality Date CARDIAC SURGERY 6 Clicks: Basic Mobility Turning from your back to your side while in a flat bed without using bed rails?: None Moving from lying on your back to sitting on side of flat bed without using bed rails?: None Moving to and from bed to a chair (including w/c)?: None Standing up from a chair using your arms (e.g. w/c or bedside chair)?: None To walk in hospital room?: A little Climbing 3-5 steps with a railing?: A little Scoring 6 Clicks: Basic Mobility Raw Score: 22 [facility] G Code Modifier: CJ Therapy Plan Need for skilled Physical Therapy to address deficits in functional mobility due to a status decline resulting from acute on chronic CHF. PT Treatment/Interventions: Functional transfer training, LE strengthening/ROM, Endurance training,Balance, Stair training, Bed mobility, Gait training, Functional activities, Neuromuscular reeducation PT Frequency: 5-6days/week PT Duration: 10 days Patient Response to Treatment: Tolerated evaluation without adverse reaction Assessment Patient Assessment Therapy Problem List: Abnormal posture, Decreased balance, Decreased endurance, Decreased mobility,Decreased safe judgement during ADL, Decreased LE ROM, Decreased LE strength Patient Response to Treatment: Tolerated evaluation without adverse reaction Mood/Affect: Appropriate for circumstances Rehab Prognosis: Good, With continued PT status post acute discharge Visit RN Communication: Yes Medical Record Reviewed: Yes PT Type of Visit: Evaluation Precautions Activity: Early mobility ok pass, Ok to evaluate per Anusha ALAS Equipment: rolling walker, nonskid socks, O2 Telemetry/Lawn Mower Operator: Yes Oxygen Used: 3L via nasal cannula Pain Assessment Pain Assessment: No/denies pain Home Living Type of Home: Trailer Home Layout: One level Stairs to Enter: 4 Home Equipment: Rolling walker Prior Function Lives With: Alone Receives Help From: Family Level of Mobility: Independent with ADLs and functional transfers or gait Homemaking Assistance: Independent Hearing / Speech / Vision Hearing: Within Functional Limits Speech: Within Functional Limits Current Vision: Wears glasses all the time Cognition Overall Cognitive Status: Within Functional Limits Transfers Sit to Stand: Standby assist Stand to Sit: Standby assist Toilet Transfers: Standby assist Gait Base of Support: Within Functional Limits Pattern: Decreased ramin, Antalgic gait Gait Assistance: Standby assist Assistive Device: Rolling walker Gait Distance: 50ft Included Uneven Surface: Yes 2 Turns: Yes Balance Sitting Balance: Static: Good Sitting Balance: Dynamic: Good Standing Balance: Static: Good Standing Balance: Dynamic: Fair RLE Assessment: Within Functional Limits LLE Assessment: Within Functional Limits Activity Tolerance Endurance: Tolerates <30 minutes activity WITHOUT vital sign changes Plan Physical Therapy Care Plan Physical Therapy Care Plan (Active) Template: PT - Physical Therapy Problem: Bed Mobility Dates: Start: 09/09/23 Disciplines: PT Goal: Patient will perform bed mobility with Stand By Assist Dates: Start: 09/09/23 Expected End: 09/18/23 Description: Goal Description: Pt to perform bed mobility in order to be able to decrease risk of further skin breakdown. Disciplines: PT Problem: Gait Dates: Start: 09/09/23 Disciplines: PT Goal: Patient will perform gait with Stand By Assist Dates: Start: 09/09/23 Expected End: 09/18/23 Description: Pt to be able to ambulate 100ft with walker to be able to safely manage household distances at discharge. Disciplines: PT Problem: Stairs/Curb Dates: Start: 09/09/23 Disciplines: PT Goal: Patient will perform stairs/curb with Stand By Assist Dates: Start: 09/09/23 Expected End: 09/18/23 Description: Pt to ascend and descend 4 stairs with handrails to be able to safely enter house at discharge. Disciplines: PT Problem: Standing Balance Dates: Start: 09/09/23 Disciplines: PT Goal: Improve balance to good Dates: Start: 09/09/23 Expected End: 09/18/23 Description: Static Dynamic Pt to have balance of good in order to decrease risk of falls at discharge. Disciplines: PT Problem: Transfers Dates: Start: 09/09/23 Disciplines: PT Goal: Patient will perform transfers with Stand By Assist Dates: Start: 09/09/23 Expected End: 09/18/23 Description: Goal Description: Pt to be able to safely transfer with least amount of assistance to demonstrate decreased need for caregiver assistance and ease with home transfers. Disciplines: PT Physical Therapy Care Plan (Resolved) There are no resolved problems. Principal Problem: Acute on chronic congestive heart failure, unspecified heart failure type ([facility]) Active Problems: Anxiety disorder Benign essential hypertension Chronic diastolic congestive heart failure ([facility]) Chronic respiratory failure with hypoxia ([facility] 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 Dyslipidemia Gastroesophageal reflux disease without esophagitis Obstructive sleep apnea syndrome Type 2 diabetes mellitus with hyperglycemia, without long-term current use of insulin ([facility] Pleural effusion, left [facility]07-19-2024 Progress note* PT/OT/RESEARCH TEST ENGINE OPERATOR - Shreya Bueno PT - 09/09/2023 8:45 AM EDT Physical Therapy (P) CANCEL - Refusal Attempted twice and patient states he would like to eat breakfast first. Will continue to follow. [facility]07-18-2024 Plan of care note* Plan of Care - Viki Lu RN - 09/08/2023 8:24 PM EDT Problem: Pain Goal: Patient goal is pain score less than 4, able to rest, and participant in treatment plan as appropriate Description: INTERVENTIONS: 1. Encourage patient or legal customer account representative to report early pain and ask for pain medicine when needed 2. Assess pain using appropriate pain scale and include the scale used when documenting 3. Administer analgesics based on type and severity of pain and evaluate response within appropriate time frame 4. Implement non-pharmacological measures as appropriate and evaluate response 5. Consider cultural and social influences on pain and pain management 6. Notify LIP if interventions ineffective or patient reports new pain 7. Monitor vital signs including pulse ox, end-tidal CO2 based on pain intervention 8. Reassess pain per policy 9. Teach patient or legal customer account representative interventions for comforting Outcome: Progressing Note: Evaluation of progress towards goal: Pt rates pain 0 , prn medication available. Problem: Safety Goal: Patient will be injury free during hospitalization Description: INTERVENTIONS: 1. Assess patient's risk for falls and implement fall prevention plan of care per policy 2. Provide and maintain a safe environment 3. Proper use of double Identifiers 4. Medication administration using the 5 rights 5. Hand hygiene 6. Specimens are labeled at the bedside 7. Instruct patient/ patient customer account representative about use of safety devices 8. Include patient/ patient customer account representative in decisions related to safety Outcome: Progressing Note: Evaluation of progress towards goal: Pt. Remains free from falls and injuries. Call light in reach, bed in lowest position. Problem: Infection Goal: Absence of infection during hospitalization Description: Interventions: 1. Assess and monitor for signs and symptoms of infection 2. Monitor lab/diagnostic results 3. Monitor all insertion sites i.e., indwelling lines, tubes and drains 4. Monitor endotracheal (as able) and nasal secretions for changes in amount and color 5. Administer medications as ordered 6. Instruct and encourage patient and family to use good hand hygiene technique 7. Identify and instruct patient/patient customer account representative in use of appropriate isolation precautionsfor identified infection/symptoms 8. Provide and discuss with patient/patient customer account representative on educational MDRO sheet 9. Encourage and monitor nutritional status daily and consult court monitor if indicated 10. Implement neutropenic guidelines as needed 11. Review exposure to history of communicable disease and recent travel history on admission 12. Encourage annual influenza vaccine 13. Encourage pneumonia vaccine Outcome: Progressing Note: Evaluation of progress towards goal: Problem: Knowledge Deficit Goal: Patient/patient customer account representative demonstrates understanding of disease process, treatment plan,medications, and discharge instructions Description: INTERVENTIONS 1. Complete learning assessment and assess knowledge base 2. Provide teaching at level of understanding 3. Provide teaching via preferred learning method(s) Outcome: Progressing Note: Evaluation of progress towards goal: Patient updated on POC along with medication. Patient voiced understanding. Problem: Discharge Planning Goal: Discharge to post-acute care, other facility, or home with appropriate resources Description: Patient's goal is: INTERVENTIONS 1. Conduct assessment to determine patient/family and health care team treatment goals, and need for post-acute services based on payer coverage, community resources, and patient preferences, and barriers to discharge 2. Coordinate with Social work, Care Navigation, and Utilization Review to arrange appropriate level of services according to patient's needs based on patient preference and payer coverage in collaboration with the physician and health care team 3. Address psychosocial, clinical, and financial barriers to discharge as identified in assessment in conjunction with the patient/family and health care team 4. Consult appropriate ancillary services (i.e.. PT/OT/ST, etc) as needed 5. Communicate with and update the patient/family, physician, and health care team regarding progress on the discharge plan 6. Identify discharge learning needs (meds, wound care, etc). 7. Arrange for needed discharge transportation as appropriate Outcome: Progressing Note: Evaluation of progress towards goal: Multidisciplinary teams working together with patient toachieve discharge goals. [facility]07-18-2024 Consult note* Brant Narayanan MD - 09/08/2023 5:31 PM EDTAssociated Order(s): IP CONSULT TO CARDIOLOGY Images from the original note were not included. [facility] [address] [place] [address] HISTORY & PHYSICAL / CONSULT NOTE Brian Mandel PCP: Melanie Taylor DO Date of Admission: 09/08/2023 Date of Consultation: 09/08/2023 6:14 PM Consult for shortness of breath SUBJECTIVE History of Present Illness: Brian Mandel is a 73 y.o. male not previously seen by P PC He has a complex history with recent stenting per report. We need the cardiac catheterization report and to know when Brilinta was started He denies chest pain. He has different consult time qualifying when shortness of breath occurred. Notes history of infection that was treated and shortness of breath with that Current resident of [facility]. He usually lives independently in [place]. 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 Previous Medical History: Past Medical History: Diagnosis Date Acute coronary syndrome ([facility]) Anxiety disorder Chronic obstructive asthma with exacerbation [place] COPD (chronic obstructive pulmonary disease) [place] Diabetes mellitus type 2, controlled ([facility] Essential hypertension Folate deficiency anemia Heart failure ([facility]) Megaloblastic anemia Muscle weakness (generalized) Myocardial infarct ([facility]) Obesity Obstructive sleep apnea SARAH (obstructive sleep apnea) Pancytopenia ([facility]) Presence of coronary artery bypass graft stent Supplemental oxygen dependent Previous Surgical History: Past Surgical History: Procedure Laterality Date CARDIAC SURGERY Allergies: No Known Allergies Hospital Meds: Current Facility-Administered Medications Medication Dose Route Frequency Provider Last Rate Last Admin acetaminophen (TYLENOL) tablet 650 mg 650 mg oral Q6H PRN Maggie D Krotzer, PER DIEM PHYSICAL THERAPIST ASSISTANT- RN REFERRAL 650 mg at 09/08/231801 albuterol (PROVENTIL,VENTOLIN) nebulizer solution 2.5 mg 2.5 mg nebulization Q6H PRN Maggie D Christoferotzer, PER DIEM PHYSICAL THERAPIST ASSISTANT-RN REFERRAL aspirin EC tablet 81 mg 81 mg oral Daily Maggie Willis Toddzer, PER DIEM PHYSICAL THERAPIST ASSISTANT-RN REFERRAL 81 mg at 09/08/231801 atorvastatin (LIPITOR) tablet 20 mg 20 mg oral Nightly Maggie D Christoferotzer, PER DIEM PHYSICAL THERAPIST ASSISTANT-RN REFERRAL benzonatate (TESSALON PERLES) capsule 200 mg 200 mg oral TID PRN Maggie Toddzer, PER DIEM PHYSICAL THERAPIST ASSISTANT-RN REFERRAL calcium gluconate 3,000 mg in sodium chloride 0.9 % 100 mL IVPB 3,000 mg intravenous PRN Maggie D Krotzer, PER DIEM PHYSICAL THERAPIST ASSISTANT-RN REFERRAL calcium gluconate 4,000 mg in sodium chloride 0.9 % 250 mL IVPB 4,000 mg intravenous PRN Maggie D Christoferotzer, PER DIEM PHYSICAL THERAPIST ASSISTANT-RN REFERRAL calcium gluconate IVPB 2000 mg/100 mL (20 mg/mL premix) 2,000 mg intravenous PRN Maggie D Christoferotzer, PER DIEM PHYSICAL THERAPIST ASSISTANT-RN REFERRAL dapagliflozin propanediol (FARXIGA) tablet 10 mg 10 mg oral Daily Brant Narayanan MD dextrose (GLUTOSE) 40 % gel 15 g 15 g oral PRN Maggie Cruz, PER DIEM PHYSICAL THERAPIST ASSISTANT-RN REFERRAL dextrose 5 % (D5W) infusion 100 mL/hr intravenous Continuous PRN Maggie Cruz, PER DIEM PHYSICAL THERAPIST ASSISTANT-RN REFERRAL dextrose 50 % in water (D50W) 50% solution 25 mL 25 mL intravenous PRN Maggie Cruz, PER DIEM PHYSICAL THERAPIST ASSISTANT-RN REFERRAL enoxaparin (LOVENOX) syringe 40 mg 40 mg subcutaneous Daily Maggie Cruz PER DIEM PHYSICAL THERAPIST ASSISTANT-RN REFERRAL 40 mg at 09/08/23 180 folic acid (FOLVITE) tablet 1 mg 1 mg oral Daily Maggie Cruz, PER DIEM PHYSICAL THERAPIST ASSISTANT-RN REFERRAL 1 mg at 09/08/23 180 furosemide (LASIX) injection 40 mg 40 mg intravenous BID Maggie Cruz APRN-SHERIDAN glucagon HCL injection 1 mg 1 mg intramuscular PRN Maggie Cruz, PER DIEM PHYSICAL THERAPIST ASSISTANT-RN REFERRAL insulin lispro (HumaLOG) injection 2-10 Units 2-10 Units subcutaneous TID with meals Maggie Cruz PER DIEM PHYSICAL THERAPIST ASSISTANT-RN REFERRAL 4 Units at 09/08/23 180 insulin lispro (HumaLOG) injection 2-8 Units 2-8 Units subcutaneous Nightly Maggie Cruz PER DIEM PHYSICAL THERAPIST ASSISTANT-RN REFERRAL magnesium sulfate IVPB 2000 mg/50 mL in iso-osmotic water (40 mg/mL premix) 2,000 mg intravenous PRN Maggie Cruz, PER DIEM PHYSICAL THERAPIST ASSISTANT-RN REFERRAL magnesium sulfate IVPB 4000 mg/100 mL in iso-osmotic water (40 mg/mL premix) 4,000 mg intravenous PRN Maggie Cruz, PER DIEM PHYSICAL THERAPIST ASSISTANT-RN REFERRAL metFORMIN XR (GLUCOPHAGE XR) 24 hr tablet 750 mg 750 mg oral Daily with breakfast Maggie Cruz PER DIEM PHYSICAL THERAPIST ASSISTANT-RN REFERRAL 750 mg at 09/08/23 180 metoprolol (LOPRESSOR) split tablet 12.5 mg 12.5 mg oral BID Maggie Cruz PER DIEM PHYSICAL THERAPIST ASSISTANT-SHERIDAN nitroglycerin (NITROSTAT) disintegrating tablet 0.4 mg 0.4 mg sublingual Q5 Min PRN Maggie Cruz,PER DIEM PHYSICAL THERAPIST ASSISTANT-SHERIDAN ondansetron (PF) (ZOFRAN) injection 4 mg 4 mg intravenous Q6H PRN Maggie Cruz PER DIEM PHYSICAL THERAPIST ASSISTANT-RN REFERRAL pantoprazole (PROTONIX) EC tablet 40 mg 40 mg oral QAM AC Maggie D Krotzer, PER DIEM PHYSICAL THERAPIST ASSISTANT- RN REFERRAL 40 mg at 09/08/23 180 PARoxetine (PAXIL) tablet 10 mg 10 mg oral Daily Maggie D Krotzer, PER DIEM PHYSICAL THERAPIST ASSISTANT-RN REFERRAL 10 mg at 09/08/23 180 perflutren lipid microspheres (DEFINITY) dilution injection 1.43 mg/10 mL 2 mL intravenous Once in imaging Maggie D Krotzer, PER DIEM PHYSICAL THERAPIST ASSISTANT-RN REFERRAL 2 mL at 09/08/23 1546 potassium chloride (K-TAB,KLOR-CON) CR tablet 30-50 mEq 30-50 mEq oral PRN Maggie D Krotzer, PER DIEM PHYSICAL THERAPIST ASSISTANT-RN REFERRAL Or potassium chloride (KAYCIEL) 20 mEq/15 mL solution 30-50 mEq 30-50 mEq oral PRN Maggie D Krotzer, PER DIEM PHYSICAL THERAPIST ASSISTANT-RN REFERRAL sodium phosphate 20 mmol in sodium chloride 0.9 % 250 mL IVPB 20 mmol intravenous PRN Maggie D Krotzer, PER DIEM PHYSICAL THERAPIST ASSISTANT-RN REFERRAL Or sodium phosphate 20 mmol in sodium chloride 0.9 % 100 mL IVPB 20 mmol intravenous PRN Maggie D Christoferotzer, PER DIEM PHYSICAL THERAPIST ASSISTANT-RN REFERRAL Or sod phos di, mono-K phos mono (K-PHOS NEUTRAL) 250 mg tablet 2 tablet 2 tablet oral PRN Maggie D Krotzer, PER DIEM PHYSICAL THERAPIST ASSISTANT-RN REFERRAL sodium chloride 0.9 % flush 10 mL 10 mL intravenous Once in imaging Maggie D Perezzer, PER DIEM PHYSICAL THERAPIST ASSISTANT-RN REFERRAL sodium chloride 0.9 % flush bag 25 mL intravenous PRN Maggie D Krotzer, PER DIEM PHYSICAL THERAPIST ASSISTANT-RN REFERRAL sodium chloride 0.9 % infusion 20 mL/hr intravenous Continuous PRN Maggie D Krotzer, PER DIEM PHYSICAL THERAPIST ASSISTANT-RN REFERRAL [START ON 09/09/2023] spironolactone (ALDACTONE) tablet 25 mg 25 mg oral Daily Brant Narayanan MD Home Meds: Prior to Admission medications Medication Sig Start Date End Date Taking? Authorizing Provider acetaminophen (TYLENOL) 325 mg tablet Take 2 tablets (650 mg total) by mouth every 8 (eight) hours as needed for pain. Yes Not In System Ref Prov albuterol (PROVENTIL,VENTOLIN) 2.5 mg /3 mL (0.083 %) nebulizer solution Inhale 3 mL (2.5 mg total)by nebulization every 6 (six) hours as needed for wheezing. Patient takes it every 2 hours Yes Not In System Ref Prov aspirin 81 mg Take 1 tablet (81 mg total) by mouth in the morning. Yes Not In System Ref Prov benzonatate (TESSALON PERLES) 200 mg capsule Take 1 capsule (200 mg total) by mouth 3 (three) timesa day as needed for cough. 07/27/23 Yes APRIL Agrawal folic acid (FOLVITE) 1 mg tablet Take 1 tablet (1 mg total) by mouth in the morning. Yes Not In System Ref Prov lisinopriL (PRINIVIL,ZESTRIL) 2.5 mg tablet Take 1 tablet (2.5 mg total) by mouth in the morning. Yes Not In System Ref Prov metFORMIN XR (GLUCOPHAGE XR) 750 mg 24 hr tablet Take 1 tablet (750 mg total) by mouth nightly. YesNot In System Ref Prov metoprolol (LOPRESSOR) 12.5 mg Take 1 split tablet (12.5 mg total) by mouth in the morning and 1 split tablet (12.5 mg total) before bedtime. Yes Not In System Ref Prov nitroglycerin (NITROSTAT) 0.[address] 1 tablet (0.4 mg total) under the tongue every 5 (five) minutes as needed for chest pain. Yes Not In System Ref Prov PARoxetine (PAXIL) 10 mg tablet Take 1 tablet (10 mg total) by mouth every morning. Yes Not In System Ref Prov pioglitazone (ACTOS) 30 mg tablet Take 1 tablet (30 mg total) by mouth in the morning. Yes Not In System Ref Prov simethicone (MYLICON) 80 mg chewable tablet Chew 1 tablet (80 mg total) and swallow every 6 (six) hours as needed for flatulence. Yes Not In System Ref Prov simvastatin (ZOCOR) 40 mg tablet Take 1 tablet (40 mg total) by mouth nightly. Yes Not In System Ref Prov ticagrelor (BRILINTA) 90 mg tablet Take 1 tablet (90 mg total) by mouth every 12 (twelve) hours. Yes Not In System Ref Prov sodium chloride 0.9 % injection Infuse 10 mL into a venous catheter every 12 (twelve) hours. 07/27/23APRIL Agrawal sodium chloride 0.9 % injection Infuse 10 mL into a venous catheter as needed for line care. 07/27/23APRIL Agrawal sodium chloride 0.9 % injection Infuse 10 mL into a venous catheter as needed for line care (beforeand after each intermittent use). 07/27/23 Maggie APRIL Varela Social History: TOBACCO: reports that he has never smoked. He has never used smokeless tobacco. ETOH: reports that he does not currently use alcohol. DRUGS: reports no history of drug use. OCCUPATION: Family History: Family History Problem Relation Age of Onset Diabetes Mother Stroke Mother Cancer Mother Heart attack Mother Heart attack Father Stroke Father Diabetes Father Cancer Father OBJECTIVE LAST LABS: CBC: Results from last 7 days Lab Units 09/08/23 0925 WBC X10E9/L 5.4 HEMOGLOBIN g/dL 7.6* HEMATOCRIT % 23.4* MCV fL 104* PLATELETS X10E9/L 144* BMP: Results from last 7 days Lab Units 09/08/23 0925 SODIUM mmol/L 135 POTASSIUM mmol/L 3.7 CHLORIDE mmol/L 101 CO2 mmol/L 29 BUN mg/dL 12 CREATININE mg/dL 0.96 CALCIUM mg/dL 8.3* MAGNESIUM mg/dL 1.5* PT/INR: APTT: MAG: Results from last 7 days Lab Units 09/08/23 0925 MAGNESIUM mg/dL 1.5* D Dimer: Troponin I ProBNP Results from last 7 days Lab Units 09/08/23 0925 BNP pg/mL 518* Lipid Panel: No results found for: CHOL , TRIG , HDL , CHOLHDLR Liver Panel: No results found for: ALB HgA1C: No results found for: HGBA1C ABG: CV HISTORY: ECHO: Echo limited W/ contrast Result Date: 09/08/2023 Left Ventricle: Left ventricle appears normal in size. Wall thickness is normal. Systolic function is normal with an ejection fraction of 55-60%. See wall score diagram for wall motion abnormalities.Pericardium: There is pleural effusion. The study had technical difficulties. The study was difficult due to patient's body habitus and poor acoustic windows. Echo complete W/ contrast Result Date: 07/27/2023 Left Ventricle: Left ventricle appears normal in size. Systolic function is normal with an ejectionfraction of 55-60%. Right Ventricle: Systolic function is mildly reduced. Abnormal tricuspid annular plane systolic excursion. Aortic Valve: There is moderate to severe regurgitation. There is moderate to severe stenosis. The calculated aortic valve area is 0.59 cm2. The calculated aortic valve peak gradient is 68.00 mmHg. The calculated aortic valve mean gradient is 36.00 mmHg. Tricuspid Valve: There is mild to moderate regurgitation. There is no evidence of tricuspid valve stenosis. STRESS: No results found. HOLTER: No results found. CARDIAC CATH: No results found. CAROTID: No results found. CXR: X-ray chest 1 view Result Date: 09/08/2023 HISTORY AND/OR TECH NOTES SOB Difficulty breathing Chest pain PROCEDURE AP chest COMPARISON July 23 FINDINGS Sternal wires There is cardiomediastinal prominence There is increased hilar fullness and congestion There is left greater than right pleural effusion There are granular opacities bilaterallyThere is suggestion of asymmetric left basilar volume loss and consolidation No visible pneumothorax or apical cavitary process IMPRESSION: [id number] CHF with pleural effusions greater on the left There appears to be asymmetric left basilar consolidation and volume loss. Correlate for pneumonia or aspiration clinically Suggest follow-up imaging to document clearing and normalization when appropriate CT should be considered if x-ray findings or symptoms persist Finalized by Pa Peres MD on 09/08/2023 9:47 AM X-ray chest 1 view Result Date: 07/24/2023 Clinical history: Left lower lobe pneumonia Views: 1 Comparison: 07/23/2023 Findings/Impression: 1. Left pleural effusion with atelectasis. Remaining lungs clear. Heart size prominent. Vasculature improved from the previous exam. No pneumothorax. 2. Overall, gradually improved compared to 07/23/2023 Wor kstation:[id number] Finalized by Ricardo Serra MD on 07/24/2023 6:45 AM X-ray chest 1 view Result Date: 07/23/2023 XR CHEST 1 VW HISTORY: Chest pain COMPARISON: None FINDINGS: AP upright film obtained. Sternotomy wires chest wall, similar to the left. The cardiomediastinal silhouette is prominent. Prominent pulmonary vasculature. No pneumothorax. Likely left pleural effusion. Left lower lung airspace opacity. IM PRESSION: * Left lower lung airspace opacity, pneumonia versus large effusion with atelectasis. * Cardiomegaly with prominent pulmonary vasculature. Approved by Resident: Bob Tolliver DO on07/23/2023 2:26 AM I, Johnathan Paige MD have personally reviewed the image(s) and agree with and/oredited the report Finalized by Johnathan Paige MD on 07/23/2023 2:42 AM EKG: Sinus rhythm with borderline T-wave abnormalities TELEMETRY: Sinus rhythm PHYSICAL EXAM Admission Weight: Weight: 109.2 kg (240 lb 12.8 oz) No intake/output data recorded. Weight change: Wt Readings from Last 3 Encounters: 09/08/23 106.1 kg (233 lb 14.4 oz) 08/06/23 110.5 kg (243 lb 9.6 oz) 07/28/23 101.1 kg (222 lb 14.2 oz) Vitals: Vitals: 09/08/23 1218 09/08/23 1345 09/08/23 1424 09/08/23 1427 BP: (!) 144/95 143/74 Pulse: 86 Resp: 16 Temp: 36.4 C (97.6 F) TempSrc: Oral SpO2: 95% 93% 91% Weight: 106.1 kg (233 lb 14.4 oz) Height: 152.4 cm (5') Admit Weight Weight: 109.2 kg (240 lb 12.8 oz) Last 3 Weights Last 3 Weight Readings 09/08/23 0922 09/08/23 1424 Weight: 109.2 kg (240 lb 12.8 oz) 106.1 kg (233 lb 14.4 oz) Body mass index is 45.68 kg/m . INTAKE/OUTPUT No intake/output data recorded. Intake/Output Summary (Last 24 hours) at 09/08/2023 1814 Last data filed at 09/08/2023 1617 Gross per 24 hour Intake -- Output 1325 ml Net -1325 ml General appearance: Alert oriented and cooperative, in no acute distress Skin: Warm and dry to touch Lungs: Bilateral diminished with rales Heart:: RRR with normal S1 and S2 , no murmurs and no gallops. Extremities: 1+ lower extremity edema ASSESSMENT Normal left ventricular systolic function on limited echo 09/08/2023 2. Moderate aortic stenosis on echocardiogram 06/2023 3. Known ASCVD -stent 08/11/2023 --history of CABG 4. Acute on chronic heart failure with preserved ejection fraction 5. Anemia with hemoglobin of 7.6 -- patient reports that this is chronic. This is very challenging with his ASCVD and recent stenting necessitating antiplatelets 6. Primary hypertension 7. Type 2 diabetes 8. Hyperlipidemia associated with type 2 diabetes -- on atorvastatin 9. COPD 10. Megaloblastic anemia/pancytopenia -hemoglobin 7.9 10. Obstructive sleep apnea 11. BMI greater than 40 12. Hypomagnesemia, repleting Obtain information from recent [facility] cardiac catheterization -- restart Brilinta. With report of recent stenting is antiplatelet needs to be held he will need to start cangrelor. If Brilinta is felt to be contributing to his shortness of breath may transition to Plavix. Need information from his primary field laboratory operator, Dr. Cohn, on when Brilinta was startedand recent stenting Actos has appropriately been held. Start Farxiga Patient is seriously ill with multiple comorbidities that are interfering with treatment of his other issues, for example the anemia with recent stenting. Guarded prognosis BRANT Narayanan MD This note was completed using a voice taffy puller system. Every effort was made to ensure accuracy. However, inadvertent computerized taffy puller errors may be present. [facility] [id number] Consult note* Brant Narayanan MD - 09/08/2023 5:31 PM EDTAssociated Order(s): IP CONSULT TO CARDIOLOGY Images from the original note were not included. [facility] [address] [place] [address] HISTORY & PHYSICAL / CONSULT NOTE Brian Mandel PCP: Melanie Taylor DO Date of Admission: 09/08/2023 Date of Consultation: 09/08/2023 6:14 PM Consult for shortness of breath SUBJECTIVE History of Present Illness: Brian Mandel is a 73 y.o. male not previously seen by P RAFAEL He has a complex history with recent stenting per report. We need the cardiac catheterization report and to know when Brilinta was started He denies chest pain. He has different consult time qualifying when shortness of breath occurred. Notes history of infection that was treated and shortness of breath with that Current resident of [facility]. He usually lives independently in [place]. 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 Previous Medical History: Past Medical History: Diagnosis Date Acute coronary syndrome ([facility]) Anxiety disorder Chronic obstructive asthma with exacerbation [place] COPD (chronic obstructive pulmonary disease) [place] Diabetes mellitus type 2, controlled ([facility] Essential hypertension Folate deficiency anemia Heart failure ([facility]) Megaloblastic anemia Muscle weakness (generalized) Myocardial infarct ([facility] Obesity Obstructive sleep apnea SARAH (obstructive sleep apnea) Pancytopenia ([facility] Presence of coronary artery bypass graft stent Supplemental oxygen dependent Previous Surgical History: Past Surgical History: Procedure Laterality Date CARDIAC SURGERY Allergies: No Known Allergies Hospital Meds: Current Facility-Administered Medications Medication Dose Route Frequency Provider Last Rate Last Admin acetaminophen (TYLENOL) tablet 650 mg 650 mg oral Q6H PRN Maggie D Krotzer, PER DIEM PHYSICAL THERAPIST ASSISTANT- RN REFERRAL 650 mg at 09/08/23 180 albuterol (PROVENTIL,VENTOLIN) nebulizer solution 2.5 mg 2.5 mg nebulization Q6H PRN Maggie D Krotzer, PER DIEM PHYSICAL THERAPIST ASSISTANT-RN REFERRAL aspirin EC tablet 81 mg 81 mg oral Daily Maggie D Christoferotzer, PER DIEM PHYSICAL THERAPIST ASSISTANT-RN REFERRAL 81 mg at 09/08/23 180 atorvastatin (LIPITOR) tablet 20 mg 20 mg oral Nightly Maggie D Krotzer, PER DIEM PHYSICAL THERAPIST ASSISTANT-RN REFERRAL benzonatate (TESSALON PERLES) capsule 200 mg 200 mg oral TID PRN Maggie D Krotzer, PER DIEM PHYSICAL THERAPIST ASSISTANT-RN REFERRAL calcium gluconate 3,000 mg in sodium chloride 0.9 % 100 mL IVPB 3,000 mg intravenous PRN Maggie D Krotzer, PER DIEM PHYSICAL THERAPIST ASSISTANT-RN REFERRAL calcium gluconate 4,000 mg in sodium chloride 0.9 % 250 mL IVPB 4,000 mg intravenous PRN Maggie D Krotzer, PER DIEM PHYSICAL THERAPIST ASSISTANT-RN REFERRAL calcium gluconate IVPB 2000 mg/100 mL (20 mg/mL premix) 2,000 mg intravenous PRN Maggie D Krotzer, PER DIEM PHYSICAL THERAPIST ASSISTANT-RN REFERRAL dapagliflozin propanediol (FARXIGA) tablet 10 mg 10 mg oral Daily Brant Narayanan MD dextrose (GLUTOSE) 40 % gel 15 g 15 g oral PRN Maggie Cruz, SPENCER-SHERIDAN dextrose 5 % (D5W) infusion 100 mL/hr intravenous Continuous PRN Maggie Cruz APRN-SHERIDAN dextrose 50 % in water (D50W) 50% solution 25 mL 25 mL intravenous PRN Maggie Cruz APRN-SHERIDAN enoxaparin (LOVENOX) syringe 40 mg 40 mg subcutaneous Daily Maggie Cruz PER DIEM PHYSICAL THERAPIST ASSISTANT-RN REFERRAL 40 mg at 09/08/23 180 folic acid (FOLVITE) tablet 1 mg 1 mg oral Daily Maggie Cruz PER DIEM PHYSICAL THERAPIST ASSISTANT-RN REFERRAL 1 mg at 09/08/23 180 furosemide (LASIX) injection 40 mg 40 mg intravenous BID Maggie Cruz APRN-SHERIDAN glucagon HCL injection 1 mg 1 mg intramuscular PRN Maggie Cruz APRN-SHERIDAN insulin lispro (HumaLOG) injection 2-10 Units 2-10 Units subcutaneous TID with meals Maggie Cruz APRN-RN REFERRAL 4 Units at 09/08/23 180 insulin lispro (HumaLOG) injection 2-8 Units 2-8 Units subcutaneous Nightly Maggie Cruz APRN-SHERIDAN magnesium sulfate IVPB 2000 mg/50 mL in iso-osmotic water (40 mg/mL premix) 2,000 mg intravenous PRN Maggie Cruz PER DIEM PHYSICAL THERAPIST ASSISTANT-RN REFERRAL magnesium sulfate IVPB 4000 mg/100 mL in iso-osmotic water (40 mg/mL premix) 4,000 mg intravenous PRN Maggie Cruz, PER DIEM PHYSICAL THERAPIST ASSISTANT-RN REFERRAL metFORMIN XR (GLUCOPHAGE XR) 24 hr tablet 750 mg 750 mg oral Daily with breakfast Maggie Cruz APRN-RN REFERRAL 750 mg at 09/08/23 180 metoprolol (LOPRESSOR) split tablet 12.5 mg 12.5 mg oral BID Maggie Cruz APRN-SHERIDAN nitroglycerin (NITROSTAT) disintegrating tablet 0.4 mg 0.4 mg sublingual Q5 Min PRN Maggie D Krotzer,PER DIEM PHYSICAL THERAPIST ASSISTANT-RN REFERRAL ondansetron (PF) (ZOFRAN) injection 4 mg 4 mg intravenous Q6H PRN Maggie D Krotzer, PER DIEM PHYSICAL THERAPIST ASSISTANT-RN REFERRAL pantoprazole (PROTONIX) EC tablet 40 mg 40 mg oral QAM AC Maggie D Krotzer, PER DIEM PHYSICAL THERAPIST ASSISTANT- RN REFERRAL 40 mg at 09/08/23 180 PARoxetine (PAXIL) tablet 10 mg 10 mg oral Daily Maggie D Krotzer, PER DIEM PHYSICAL THERAPIST ASSISTANT-RN REFERRAL 10 mg at 09/08/23 180 perflutren lipid microspheres (DEFINITY) dilution injection 1.43 mg/10 mL 2 mL intravenous Once in imaging Maggie D Krotzer, PER DIEM PHYSICAL THERAPIST ASSISTANT-RN REFERRAL 2 mL at 09/08/23 1546 potassium chloride (K-TAB,KLOR-CON) CR tablet 30-50 mEq 30-50 mEq oral PRN Maggie D Krotzer, PER DIEM PHYSICAL THERAPIST ASSISTANT-RN REFERRAL Or potassium chloride (KAYCIEL) 20 mEq/15 mL solution 30-50 mEq 30-50 mEq oral PRN Maggie D Krotzer, PER DIEM PHYSICAL THERAPIST ASSISTANT-RN REFERRAL sodium phosphate 20 mmol in sodium chloride 0.9 % 250 mL IVPB 20 mmol intravenous PRN Maggie D Krotzer, PER DIEM PHYSICAL THERAPIST ASSISTANT-RN REFERRAL Or sodium phosphate 20 mmol in sodium chloride 0.9 % 100 mL IVPB 20 mmol intravenous PRN Maggie D Krotzer, PER DIEM PHYSICAL THERAPIST ASSISTANT-RN REFERRAL Or sod phos di, mono-K phos mono (K-PHOS NEUTRAL) 250 mg tablet 2 tablet 2 tablet oral PRN Maggie D Krotzer, PER DIEM PHYSICAL THERAPIST ASSISTANT-RN REFERRAL sodium chloride 0.9 % flush 10 mL 10 mL intravenous Once in imaging Maggie D Krotzer, PER DIEM PHYSICAL THERAPIST ASSISTANT-RN REFERRAL sodium chloride 0.9 % flush bag 25 mL intravenous PRN Maggie D Krotzer, PER DIEM PHYSICAL THERAPIST ASSISTANT-RN REFERRAL sodium chloride 0.9 % infusion 20 mL/hr intravenous Continuous PRN Maggie D Krotzer, PER DIEM PHYSICAL THERAPIST ASSISTANT-RN REFERRAL [START ON 09/09/2023] spironolactone (ALDACTONE) tablet 25 mg 25 mg oral Daily Brant Narayanan MD Home Meds: Prior to Admission medications Medication Sig Start Date End Date Taking? Authorizing Provider acetaminophen (TYLENOL) 325 mg tablet Take 2 tablets (650 mg total) by mouth every 8 (eight) hours as needed for pain. Yes Not In System Ref Prov albuterol (PROVENTIL,VENTOLIN) 2.5 mg /3 mL (0.083 %) nebulizer solution Inhale 3 mL (2.5 mg total)by nebulization every 6 (six) hours as needed for wheezing. Patient takes it every 2 hours Yes Not In System Ref Prov aspirin 81 mg Take 1 tablet (81 mg total) by mouth in the morning. Yes Not In System Ref Prov benzonatate (TESSALON PERLES) 200 mg capsule Take 1 capsule (200 mg total) by mouth 3 (three) timesa day as needed for cough. 07/27/23 Yes APRIL Agrawal folic acid (FOLVITE) 1 mg tablet Take 1 tablet (1 mg total) by mouth in the morning. Yes Not In System Ref Prov lisinopriL (PRINIVIL,ZESTRIL) 2.5 mg tablet Take 1 tablet (2.5 mg total) by mouth in the morning. Yes Not In System Ref Prov metFORMIN XR (GLUCOPHAGE XR) 750 mg 24 hr tablet Take 1 tablet (750 mg total) by mouth nightly. YesNot In System Ref Prov metoprolol (LOPRESSOR) 12.5 mg Take 1 split tablet (12.5 mg total) by mouth in the morning and 1 split tablet (12.5 mg total) before bedtime. Yes Not In System Ref Prov nitroglycerin (NITROSTAT) 0.[address] 1 tablet (0.4 mg total) under the tongue every 5 (five) minutes as needed for chest pain. Yes Not In System Ref Prov PARoxetine (PAXIL) 10 mg tablet Take 1 tablet (10 mg total) by mouth every morning. Yes Not In System Ref Prov pioglitazone (ACTOS) 30 mg tablet Take 1 tablet (30 mg total) by mouth in the morning. Yes Not In System Ref Prov simethicone (MYLICON) 80 mg chewable tablet Chew 1 tablet (80 mg total) and swallow every 6 (six) hours as needed for flatulence. Yes Not In System Ref Prov simvastatin (ZOCOR) 40 mg tablet Take 1 tablet (40 mg total) by mouth nightly. Yes Not In System Ref Prov ticagrelor (BRILINTA) 90 mg tablet Take 1 tablet (90 mg total) by mouth every 12 (twelve) hours. Yes Not In System Ref Prov sodium chloride 0.9 % injection Infuse 10 mL into a venous catheter every 12 (twelve) hours. 07/27/23Maggie Beaulieuelderzer PER DIEM PHYSICAL THERAPIST ASSISTANT-RN REFERRAL sodium chloride 0.9 % injection Infuse 10 mL into a venous catheter as needed for line care. 07/27/23Maggie Toddzer, PER DIEM PHYSICAL THERAPIST ASSISTANT-RN REFERRAL sodium chloride 0.9 % injection Infuse 10 mL into a venous catheter as needed for line care (beforeand after each intermittent use). 07/27/23 Maggie Beaulieueldermadeline PER DIEM PHYSICAL THERAPIST ASSISTANT-RN REFERRAL Social History: TOBACCO: reports that he has never smoked. He has never used smokeless tobacco. ETOH: reports that he does not currently use alcohol. DRUGS: reports no history of drug use. OCCUPATION: Family History: Family History Problem Relation Age of Onset Diabetes Mother Stroke Mother Cancer Mother Heart attack Mother Heart attack Father Stroke Father Diabetes Father Cancer Father OBJECTIVE LAST LABS: CBC: Results from last 7 days Lab Units 09/08/23 0925 WBC X10E9/L 5.4 HEMOGLOBIN g/dL 7.6* HEMATOCRIT % 23.4* MCV fL 104* PLATELETS X10E9/L 144* BMP: Results from last 7 days Lab Units 09/08/23 0925 SODIUM mmol/L 135 POTASSIUM mmol/L 3.7 CHLORIDE mmol/L 101 CO2 mmol/L 29 BUN mg/dL 12 CREATININE mg/dL 0.96 CALCIUM mg/dL 8.3* MAGNESIUM mg/dL 1.5* PT/INR: APTT: MAG: Results from last 7 days Lab Units 09/08/23 0925 MAGNESIUM mg/dL 1.5* D Dimer: Troponin I ProBNP Results from last 7 days Lab Units 09/08/23 0925 BNP pg/mL 518* Lipid Panel: No results found for: CHOL , TRIG , HDL , CHOLHDLR Liver Panel: No results found for: ALB HgA1C: No results found for: HGBA1C ABG: CV HISTORY: ECHO: Echo limited W/ contrast Result Date: 09/08/2023 Left Ventricle: Left ventricle appears normal in size. Wall thickness is normal. Systolic function is normal with an ejection fraction of 55-60%. See wall score diagram for wall motion abnormalities.Pericardium: There is pleural effusion. The study had technical difficulties. The study was difficult due to patient's body habitus and poor acoustic windows. Echo complete W/ contrast Result Date: 07/27/2023 Left Ventricle: Left ventricle appears normal in size. Systolic function is normal with an ejectionfraction of 55-60%. Right Ventricle: Systolic function is mildly reduced. Abnormal tricuspid annular plane systolic excursion. Aortic Valve: There is moderate to severe regurgitation. There is moderate to severe stenosis. The calculated aortic valve area is 0.59 cm2. The calculated aortic valve peak gradient is 68.00 mmHg. The calculated aortic valve mean gradient is 36.00 mmHg. Tricuspid Valve: There is mild to moderate regurgitation. There is no evidence of tricuspid valve stenosis. STRESS: No results found. HOLTER: No results found. CARDIAC CATH: No results found. CAROTID: No results found. CXR: X-ray chest 1 view Result Date: 09/08/2023 HISTORY AND/OR TECH NOTES SOB Difficulty breathing Chest pain PROCEDURE AP chest COMPARISON July 23 FINDINGS Sternal wires There is cardiomediastinal prominence There is increased hilar fullness and congestion There is left greater than right pleural effusion There are granular opacities bilaterallyThere is suggestion of asymmetric left basilar volume loss and consolidation No visible pneumothorax or apical cavitary process IMPRESSION: Inwe-lp-[id number] CHF with pleural effusions greater on the left There appears to be asymmetric left basilar consolidation and volume loss. Correlate for pneumonia or aspiration clinically Suggest follow-up imaging to document clearing and normalization when appropriate CT should be considered if x-ray findings or symptoms persist Finalized by Pa Peres MD on 09/08/2023 9:47 AM X-ray chest 1 view Result Date: 07/24/2023 Clinical history: Left lower lobe pneumonia Views: 1 Comparison: 07/23/2023 Findings/Impression: 1. Left pleural effusion with atelectasis. Remaining lungs clear. Heart size prominent. Vasculature improved from the previous exam. No pneumothorax. 2. Overall, gradually improved compared to 07/23/2023 Wor kstation:[id number] Finalized by Ricardo Serra MD on 07/24/2023 6:45 AM X-ray chest 1 view Result Date: 07/23/2023 XR CHEST 1 VW HISTORY: Chest pain COMPARISON: None FINDINGS: AP upright film obtained. Sternotomy wires chest wall, similar to the left. The cardiomediastinal silhouette is prominent. Prominent pulmonary vasculature. No pneumothorax. Likely left pleural effusion. Left lower lung airspace opacity. IM PRESSION: * Left lower lung airspace opacity, pneumonia versus large effusion with atelectasis. * Cardiomegaly with prominent pulmonary vasculature. Approved by Resident: Bob Tolliver DO on07/23/2023 2:26 AM I, Johnathan Paige MD have personally reviewed the image(s) and agree with and/oredited the report Finalized by Johnathan Paige MD on 07/23/2023 2:42 AM EKG: Sinus rhythm with borderline T-wave abnormalities TELEMETRY: Sinus rhythm PHYSICAL EXAM Admission Weight: Weight: 109.2 kg (240 lb 12.8 oz) No intake/output data recorded. Weight change: Wt Readings from Last 3 Encounters: 09/08/23 106.1 kg (233 lb 14.4 oz) 08/06/23 110.5 kg (243 lb 9.6 oz) 07/28/23 101.1 kg (222 lb 14.2 oz) Vitals: Vitals: 09/08/23 1218 09/08/23 1345 09/08/23 1424 09/08/23 1427 BP: (!) 144/95 143/74 Pulse: 86 Resp: 16 Temp: 36.4 C (97.6 F) TempSrc: Oral SpO2: 95% 93% 91% Weight: 106.1 kg (233 lb 14.4 oz) Height: 152.4 cm (5') Admit Weight Weight: 109.2 kg (240 lb 12.8 oz) Last 3 Weights Last 3 Weight Readings 09/08/23 0922 09/08/23 1424 Weight: 109.2 kg (240 lb 12.8 oz) 106.1 kg (233 lb 14.4 oz) Body mass index is 45.68 kg/m . INTAKE/OUTPUT No intake/output data recorded. Intake/Output Summary (Last 24 hours) at 09/08/2023 1814 Last data filed at 09/08/2023 1617 Gross per 24 hour Intake -- Output 1325 ml Net -1325 ml General appearance: Alert oriented and cooperative, in no acute distress Skin: Warm and dry to touch Lungs: Bilateral diminished with rales Heart:: RRR with normal S1 and S2 , no murmurs and no gallops. Extremities: 1+ lower extremity edema ASSESSMENT Normal left ventricular systolic function on limited echo 09/08/2023 2. Moderate aortic stenosis on echocardiogram 06/2023 3. Known ASCVD -stent 08/11/2023 --history of CABG 4. Acute on chronic heart failure with preserved ejection fraction 5. Anemia with hemoglobin of 7.6 -- patient reports that this is chronic. This is very challenging with his ASCVD and recent stenting necessitating antiplatelets 6. Primary hypertension 7. Type 2 diabetes 8. Hyperlipidemia associated with type 2 diabetes -- on atorvastatin 9. COPD 10. Megaloblastic anemia/pancytopenia -hemoglobin 7.9 10. Obstructive sleep apnea 11. BMI greater than 40 12. Hypomagnesemia, repleting Obtain information from recent [facility] cardiac catheterization -- restart Brilinta. With report of recent stenting is antiplatelet needs to be held he will need to start cangrelor. If Brilinta is felt to be contributing to his shortness of breath may transition to Plavix. Need information from his primary field laboratory operator, Dr. Cohn, on when Brilinta was startedand recent stenting Actos has appropriately been held. Start Farxiga Patient is seriously ill with multiple comorbidities that are interfering with treatment of his other issues, for example the anemia with recent stenting. Guarded prognosis BRANT Narayanan MD This note was completed using a voice taffy puller system. Every effort was made to ensure accuracy. However, inadvertent computerized taffy puller errors may be present. documented in this encounter[facility]AS[facility]ages07-[facility] Progress note* Wound Care - Cindy Villalobos RN - 09/08/2023 4:12 PM EDT ET nurse note: ET seen patient for a Bassem score of 18. Initial ET skin assessment completed. Scattered sores on bilateral legs. Cleanse with soap and water then pat dry. Apply medi honey on adaptic to open areas and secure with band aid or dry dressing. Remaining pressure points clear. Skin protocols on chart. Continue to follow wound care order set and turn patient every 2 hours. No additional concerns at this time. Please consult Wound Care Services with any new skin concerns. [facility]07-18-2024 Plan of care note* Plan of Care - Luigi Sibley RN - 09/08/2023 3:27 PM EDT Problem: Pain Goal: Patient goal is pain score less than 4, able to rest, and participant in treatment plan as appropriate Description: INTERVENTIONS: 1. Encourage patient or legal customer account representative to report early pain and ask for pain medicine when needed 2. Assess pain using appropriate pain scale and include the scale used when documenting 3. Administer analgesics based on type and severity of pain and evaluate response within appropriate time frame 4. Implement non-pharmacological measures as appropriate and evaluate response 5. Consider cultural and social influences on pain and pain management 6. Notify LIP if interventions ineffective or patient reports new pain 7. Monitor vital signs including pulse ox, end-tidal CO2 based on pain intervention 8. Reassess pain per policy 9. Teach patient or legal customer account representative interventions for comforting Outcome: Progressing Note: Evaluation of progress towards goal: Pt able to report pain according to 0/10 pain scale. Medicating patient for pain per orders. Problem: Safety Goal: Patient will be injury free during hospitalization Description: INTERVENTIONS: 1. Assess patient's risk for falls and implement fall prevention plan of care per policy 2. Provide and maintain a safe environment 3. Proper use of double Identifiers 4. Medication administration using the 5 rights 5. Hand hygiene 6. Specimens are labeled at the bedside 7. Instruct patient/ patient customer account representative about use of safety devices 8. Include patient/ patient customer account representative in decisions related to safety Outcome: Progressing Note: Evaluation of progress towards goal: Pt's risk for falls assessed and fall prevention implemented as needed, safe environment provided and maintained, hand hygiene completed. Problem: Infection Goal: Absence of infection during hospitalization Description: Interventions: 1. Assess and monitor for signs and symptoms of infection 2. Monitor lab/diagnostic results 3. Monitor all insertion sites i.e., indwelling lines, tubes and drains 4. Monitor endotracheal (as able) and nasal secretions for changes in amount and color 5. Administer medications as ordered 6. Instruct and encourage patient and family to use good hand hygiene technique 7. Identify and instruct patient/patient customer account representative in use of appropriate isolation precautionsfor identified infection/symptoms 8. Provide and discuss with patient/patient customer account representative on educational MDRO sheet 9. Encourage and monitor nutritional status daily and consult court monitor if indicated 10. Implement neutropenic guidelines as needed 11. Review exposure to history of communicable disease and recent travel history on admission 12. Encourage annual influenza vaccine 13. Encourage pneumonia vaccine Outcome: Progressing Note: Evaluation of progress towards goal: Patient VS WNL, remains afebrile for shift. Problem: Knowledge Deficit Goal: Patient/patient customer account representative demonstrates understanding of disease process, treatment plan,medications, and discharge instructions Description: INTERVENTIONS 1. Complete learning assessment and assess knowledge base 2. Provide teaching at level of understanding 3. Provide teaching via preferred learning method(s) Outcome: Progressing Note: Evaluation of progress towards goal: Patient is taught verbally at and appropriate level of understanding using the teach back method. Patient was encouraged to asked questions to learn about of their plan of care and medications. The patient received proper education prior to medication admin istration. The patient understands and has no additional questions at this time. Problem: Moderate - High Risk Fall Score Description: Bell Fall Score of =/> 25 or indicated by [facility] Assessment Goal: Patient should be free from fall Description: Interventions: 1. [place] to environment 2. Hourly rounds addressing the 4 P's (Pain, Positioning, Possessions, Potty) 3. Clear area of hazards (spills, clutter, electrical cords, unnecessary equipment) 4. Place equipment (bed & TV controls, call light, phone, urinal) within reach 5. Encourage patient to wear glasses and hearing aides as appropriate 6. Maintain bed in lowest position 7. Lock wheels on bed/wheelchair 8. Provide adequate lighting, including night light 9. Assess need for additional bedding, food/fluids, pain med's prior to sleep/routinely 10. Provide gripper slippers or personal non-skid footwear 11. Teach patient and patient customer account representative to maintain environment for safety and engage in all aspects of fall prevention program 12. Remind patient to call for help before getting out of bed 13. Initiate bed/chair/exit alarms supportive devices as appropriate, (chair wedge, no-skid floor mat, raised edge mattress, hip protectors) 14. Locate patient bed assignment for optimal visualization 15. Evaluate and identify Safe Patient Handling Equipment needs 16. Provide supervision when out of bed or chair 17. Utilize gait belt as needed to assist with ambulation 18. Place adaptive equipment (cane, walker) within reach 19. Request patient customer account representative bring adaptive equipment/mobility aids from home or obtain and provide as needed 20. Consult pharmacy regarding effects of med's affecting mobility, cognition, and alternatives 21. Obtain physician order for PT if risk factors associated with mobility are present 22. Obtain physician order for OT as appropriate 23. Utilize diversional activities 24. Educate patient and patient customer account representative how to maintain a safe environment during visitationtimes (notify nurse prior to leaving bedside) 25. Consider appropriateness of medical or non-bilingual medical assistant 26. Set up voiding schedule as appropriate (every 2 hours) Outcome: Progressing Note: Evaluation of progress towards goal: Pt remains free from falls or accidental injury during stay. Fall prevention measures in place. Hourly rounding per RN and maintained. Problem: Respiratory - Adult Goal: Achieves optimal ventilation and oxygenation Description: Patient's goal is: INTERVENTIONS: 1. Assess for changes in respiratory status 2. Assess for changes in mentation and behavior 3. Position to facilitate oxygenation and minimize respiratory effort 4. Oxygen supplementation based on oxygen saturation or ABGs as ordered 5. Consult smoking cessation as indicated 6. Encourage broncho-pulmonary hygiene including cough, deep breathe, Incentive Spirometry, keep HOB elevated as tolerated, and encourage ambulation, as ordered 7. Assess the need for suctioning and obtain order to maintain clear airway 8. Assess and instruct patient to report SOB or any respiratory difficulty 9. Assess the need for Respiratory Therapy support if not already ordered 10. Initiate emergency measures for respiratory failure Outcome: Progressing Note: Evaluation of progress towards goal: Patient requiring 3L of O2 which is baseline. Becomes SOB on exertion. SNADEC [id number] History and physical note* Julia Man MD - 09/08/2023 1:21 PM EDT Images from the original note were not included. [facility] Hospital Medicine History & Physical Patient: Brian Mandel Date of : 1950 Room: 02/01 PCP: Melanie Taylor DO Admission date: 09/08/2023 9:13 AM Encounter date: 09/08/23 SUBJECTIVE Brian Mandel is a 73 y.o. male who presents with via EMS for evaluation of shortness of breath. Pt states that he has been having difficulty breathing with movement for a week. Pt states that hewent to therapy for the breathing and that it's not helping anymore. Pt reports that he had a heartstent placed late July due to blockage. Pt denies being sick. Pt notes that he takes metoprolol. Pt notes that he is on 2L of oxygen and that breathing treatments help his breathing. Pt denies current chest pain. Pt was given full aspirin by EMS. Pt has no known drug allergies. ER Course: Labs notable for: BNP 518, RBC 2.25, Hemoglobin 7.6, Hematocrit 23.4. Imaging was independently viewed by Dr. Dumont and is notable for [id number] CHF with pleural effusions greater on the left, there appears to be asymmetric left basilar consolidation and volume loss. Agreeable with official radiologist read. Dr. Dumont reevaluated pt. Pt received lasix, had adequate urine output, and pt was ambulated with assistance and pt became severly dyspnic. Chief Complaint Patient presents with Shortness of Breath Allergies: Patient has no known allergies. Prior to Admission medications Medication Sig Start Date End Date Taking? Authorizing Provider acetaminophen (TYLENOL) 325 mg tablet Take 2 tablets (650 mg total) by mouth every 8 (eight) hours as needed for pain. Not In System Ref Prov albuterol (PROVENTIL,VENTOLIN) 2.5 mg /3 mL (0.083 %) nebulizer solution Inhale 3 mL (2.5 mg total)by nebulization every 6 (six) hours as needed for wheezing. Not In System Ref Prov aspirin 81 mg Take 1 tablet (81 mg total) by mouth in the morning. Not In System Ref Prov benzonatate (TESSALON PERLES) 200 mg capsule Take 1 capsule (200 mg total) by mouth 3 (three) timesa day as needed for cough. 07/27/23 Maggie Cruz APRN-SHERIDAN folic acid (FOLVITE) 1 mg tablet Take 1 tablet (1 mg total) by mouth in the morning. Not In System Ref Prov lisinopriL (PRINIVIL,ZESTRIL) 2.5 mg tablet Take 1 tablet (2.5 mg total) by mouth in the morning. Not In System Ref Prov metFORMIN XR (GLUCOPHAGE XR) 750 mg 24 hr tablet Take 1 tablet (750 mg total) by mouth daily with breakfast. Not In System Ref Prov metoprolol (LOPRESSOR) 12.5 mg Take 1 split tablet (12.5 mg total) by mouth in the morning and 1 split tablet (12.5 mg total) before bedtime. Not In System Ref Prov nitroglycerin (NITROSTAT) 0.[address] 1 tablet (0.4 mg total) under the tongue every 5 (five) minutes as needed for chest pain. Not In System Ref Prov PARoxetine (PAXIL) 10 mg tablet Take 1 tablet (10 mg total) by mouth every morning. Not In System Ref Prov pioglitazone (ACTOS) 30 mg tablet Take 1 tablet (30 mg total) by mouth in the morning. Not In System Ref Prov simethicone (MYLICON) 80 mg chewable tablet Chew 1 tablet (80 mg total) and swallow every 6 (six) hours as needed for flatulence. Not In System Ref Prov simvastatin (ZOCOR) 40 mg tablet Take 1 tablet (40 mg total) by mouth nightly. Not In System Ref Prov sodium chloride 0.9 % injection Infuse 10 mL into a venous catheter every 12 (twelve) hours. 07/27/23APRIL Agrawal sodium chloride 0.9 % injection Infuse 10 mL into a venous catheter as needed for line care. 07/27/23Maggie Cruz APRN-SHERIDAN sodium chloride 0.9 % injection Infuse 10 mL into a venous catheter as needed for line care (beforeand after each intermittent use). 07/27/23 APRIL Agrawal ticagrelor (BRILINTA) 90 mg tablet Take by mouth every 12 (twelve) hours. Not In System Ref Prov Past Medical History: Patient has a past medical history of Acute coronary syndrome ([facility]), Anxiety disorder, Chronic obstructive asthma with exacerbation ([facility]), COPD (chronic obstructive pulmonary disease) ([facility]), Diabetes mellitus type 2, controlled (CMS-HCC), Essential hypertension, Folate deficiency anemia, Heart failure (CMS- HCC), Megaloblastic anemia, Muscle weakness (generalized), Myocardial infarct (C AL-HCC), Obesity, Obstructive sleep apnea, SARAH (obstructive sleep apnea), Pancytopenia (CMS-HCC), Presence of coronary artery bypass graft stent, and Supplemental oxygen dependent. Past Surgical History: Patient has a past surgical history that includes Cardiac surgery. Family History: Patient's family history includes Cancer in his father and mother; Diabetes in his father and mother; Heart attack in his father and mother; Stroke in his father and mother. Social History: Patient reports that he has never smoked. He has never used smokeless tobacco. He reports that he does not currently use alcohol. He reports that he does not use drugs. Review of Systems Review of Systems Constitutional: Negative for activity change, appetite change, chills, diaphoresis, fatigue and fever. HENT: Negative for tinnitus and trouble swallowing. Eyes: Negative for visual disturbance. Respiratory: Positive for shortness of breath. Negative for cough, chest tightness and wheezing. Cardiovascular: Negative for chest pain, palpitations and leg swelling. Gastrointestinal: Negative for abdominal pain, diarrhea, nausea and vomiting. Genitourinary: Negative for difficulty urinating. Skin: Negative for rash. Neurological: Negative for dizziness, syncope, speech difficulty, weakness, light-headedness, numbness and headaches. Psychiatric/Behavioral: Negative for sleep disturbance. OBJECTIVE BP 113/57 Pulse 80 Temp 37 C (98.6 F) (Oral) Resp 22 Ht 152.4 cm (5') Wt 109.2 kg (240 lb12.8 oz) SpO2 95% BMI 47.03 kg/m Intake/Output Summary (Last 24 hours) at 09/08/2023 1332 Last data filed at 09/08/2023 1310 Gross per 24 hour Intake -- Output 450 ml Net -450 ml Physical Exam Physical Exam Vitals and nursing note reviewed. Constitutional: General: He is not in acute distress. Appearance: He is obese. HENT: Head: Normocephalic and atraumatic. Right Ear: External ear normal. Left Ear: External ear normal. Nose: Nose normal. Mouth/Throat: Mouth: Mucous membranes are moist. Pharynx: Oropharynx is clear. Eyes: Conjunctiva/sclera: Conjunctivae normal. Pupils: Pupils are equal, round, and reactive to light. Neck: Vascular: No carotid bruit or JVD. Cardiovascular: Rate and Rhythm: Normal rate and regular rhythm. Pulses: Normal pulses. Pulmonary: Effort: Pulmonary effort is normal. Breath sounds: Examination of the right-lower field reveals decreased breath sounds. Examination ofthe left-lower field reveals decreased breath sounds. Decreased breath sounds and rales (Bibasilar)present. No wheezing. Abdominal: General: Bowel sounds are normal. Palpations: Abdomen is soft. Tenderness: There is no abdominal tenderness. There is no right CVA tenderness or left CVA tenderness. Musculoskeletal: Right lower le+ Pitting Edema present. Left lower le+ Pitting Edema present. Lymphadenopathy: Cervical: No cervical adenopathy. Skin: General: Skin is warm and dry. Capillary Refill: Capillary refill takes 2 to 3 seconds. Coloration: Skin is pale. Neurological: General: No focal deficit present. Mental Status: He is alert and oriented to person, place, and time. Psychiatric: Mood and Affect: Mood normal. Behavior: Behavior normal. Thought Content: Thought content normal. Judgment: Judgment normal. Medications Scheduled: Infusions: No current facility-administered medications for this encounter. As Needed: Allergies: Patient has no known allergies. Labs Recent Results (from the past 24 hour(s)) CBC auto differential Collection Time: 09/08/23 9:25 AM Result Value Ref Range White Blood Cells 5.4 4.0 - 11.0 X10E9/L RBC count 2.25 (L) 4.10 - 5.70 X10E12/L Hemoglobin 7.6 (L) 13.0 - 17.0 g/dL Hematocrit 23.4 (L) 39 - 49 % MCV 104 (H) 80 - 100 fL MCH 34.0 27 - 34 pg MCHC 32.6 32 - 36 g/dL RDW 17.8 (H) 11.5 - 15.0 % Platelets 144 (L) 150 - 450 X10E9/L MPV 10.4 7 - 12 fL % neutrophils 69.4 % % lymphocytes 18.9 % % monocytes 8.1 % % eosinophils 3.0 % % Basophils 0.6 % Neutrophils Absolute (A) 3.8 1.5 - 6.6 X10E9/L Lymphocytes Absolute 1.0 1.0 - 3.5 X10E9/L Monocytes Absolute 0.4 0 - 0.9 X10E9/L Eosinophils Absolute 0.2 0.0 - 0.4 X10E9/L Basophils Absolute 0.0 0.0 - 0.2 X10E9/L Comprehensive metabolic panel Collection Time: 09/08/23 9:25 AM Result Value Ref Range Sodium 135 134 - 146 mmol/L Potassium, Bld 3.7 3.5 - 5.0 mmol/L Chloride 101 98 - 109 mmol/L CO2 29 22 - 32 mmol/L Anion gap 5 5 - 15 mmol/L BUN 12 5 - 27 mg/dL Creatinine 0.96 0.70 - 1.20 mg/dL Glucose 130 (H) 65 - 99 mg/dL Calcium 8.3 (L) 8.5 - 10.5 mg/dL Total Protein 7.0 6.0 - 8.0 g/dL Albumin 3.0 (L) 3.2 - 5.3 g/dL Alkaline Phosphatase 91 39 - 130 U/L AST 22 0 - 41 U/L ALT 15 0 - 40 U/L Total bilirubin 0.6 0.3 - 1.2 mg/dL eGFR (CKD-EPI)non-race dependent 82 >59 ml/min/1.73sq.m Magnesium Collection Time: 09/08/23 9:25 AM Result Value Ref Range Magnesium 1.5 (L) 1.8 - 2.6 mg/dL Troponin I, High Sensitivity Collection Time: 09/08/23 9:25 AM Result Value Ref Range Troponin I, High Sensitivity 12 <21 ng/L B-type natriuretic peptide Collection Time: 09/08/23 9:25 AM Result Value Ref Range BNP 518 (H) <100.0 pg/mL Troponin I, High Sensitivity 1 Hour Collection Time: 09/08/23 10:26 AM Result Value Ref Range 1 Hour Trop I, High Sensitivity 12 <21 ng/L Radiology X-ray chest 1 view Result Date: 09/08/2023 Narrative: HISTORY AND/OR TECH NOTES SOB Difficulty breathing Chest pain PROCEDURE AP chest COMPARISON July 23 FINDINGS Sternal wires There is cardiomediastinal prominence There is increased hilar fullness and congestion There is left greater than right pleural effusion There are granular opacities b ilaterally There is suggestion of asymmetric left basilar volume loss and consolidation No visible pneumothorax or apical cavitary process IMPRESSION: [id number] CHF with pleural effusions greater on the left There appears to be asymmetric left basilar consolidation and volume loss. Correlatefor pneumonia or aspiration clinically Suggest follow-up imaging to document clearing and normalization when appropriate CT should be considered if x-ray findings or symptoms persist Finalized by Pa Peres MD on 09/08/2023 9:47 AM HOSPITAL PROBLEM LIST Principal Problem: Acute on chronic congestive heart failure, unspecified heart failure type ([facility]) Active Problems: Anxiety disorder Benign essential hypertension Chronic diastolic congestive heart failure ([facility]) Chronic respiratory failure with hypoxia ([facility]) 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 Dyslipidemia Gastroesophageal reflux disease without esophagitis Obstructive sleep apnea syndrome Type 2 diabetes mellitus with hyperglycemia, without long-term current use of insulin ([facility]) Pleural effusion, left ASSESSMENT & PLAN Acute on chronic diastolic CHF: Elevated BNP. Lasix 40 mg IV b.i.d.. Monitor daily weight and I&O. 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 Reviewed echo from 1 month ago the shows preserved LVEF of 55 to 60% reorder echo limited to check LVEF. Anxiety disorder: Supportive care. Continue home medications. Hypertension: Normotensive. Continue home medications. Chronic respiratory failure: Baseline home O2 2-3 L. continue oxygen at 3 L per nasal cannula. Titrate up if needed. CAD/dyslipidemia: Continue home aspirin and statin. GERD: Protonix. Sleep apnea: Home CPAP ordered. Dm type 2: Continue home metformin. Monitor blood glucose a.c. and HS cover sliding scale insulin. Pleural effusion: Lasix as above. Continue to monitor. Monitor kidney function and electrolytes daily. Replace electrolytes per protocol. Admission orders placed and home medications reconciled. DVT prophylaxis: EPC's and Lovenox. GI prophylaxis. Protonix PT/OT to evaluate and treat. DC planning: Discharge home in 1-2 days. Appreciate cardiology input. Maggie Cruz, SPENCER-RN REFERRAL, 09/08/2023 1:32 PM [facility] Internal Medicine 7AM-7PM (all facilities): EpicChat or page through Vocera. 7PM-7AM ([facility], [facility]): EpicChat or page, [phone]. 7PM-7AM ([place], [place], [place], [facility]): EpicChat or page through Vocera. This note is dictated with the use of M*Modal. Please note that this dictation was completed with computer voice recognition software. Quite often unanticipated grammatical, syntax, homophones, and other interpretive errors are inadvertently transcribed by the computer software. Please disregard these errors. Please excuse any errors that have escaped final proofreading. Maggie Cruz, PER DIEM PHYSICAL THERAPIST ASSISTANT-[facility] 09/08/23 1418 Physician Attestation I, Julia Man MD, personally performed a face to face diagnostic evaluation on this patient. I have reviewed the note authored by the advance practice provider including history, review of systems,physical examination,medical decision making and agree with the assessment and plan as written. I have seen and evaluated the patient, I have repeated the benoit portions of the physical exam and concur with the RASHAUN findings. I have reviewed all laboratory findings and imaging reports/films. I agree with the plan as noted. [facility]07-18-2024 History and physical note* Julia Man MD - 09/08/2023 1:21 PM EDT Images from the original note were not included. [facility] Hospital Medicine History & Physical Patient: Brian Mandel Date of : 1950 Room: 02/01 PCP: Melanie Taylor DO Admission date: 09/08/2023 9:13 AM Encounter date: 09/08/23 SUBJECTIVE Brian Mandel is a 73 y.o. male who presents with via EMS for evaluation of shortness of breath. Pt states that he has been having difficulty breathing with movement for a week. Pt states that hewent to therapy for the breathing and that it's not helping anymore. Pt reports that he had a heartstent placed late July due to blockage. Pt denies being sick. Pt notes that he takes metoprolol. Pt notes that he is on 2L of oxygen and that breathing treatments help his breathing. Pt denies current chest pain. Pt was given full aspirin by EMS. Pt has no known drug allergies. ER Course: Labs notable for: BNP 518, RBC 2.25, Hemoglobin 7.6, Hematocrit 23.4. Imaging was independently viewed by Dr. Dumont and is notable for [id number] CHF with pleural effusions greater on the left, there appears to be asymmetric left basilar consolidation and volume loss. Agreeable with official radiologist read. Dr. Dumont reevaluated pt. Pt received lasix, had adequate urine output, and pt was ambulated with assistance and pt became severly dyspnic. Chief Complaint Patient presents with Shortness of Breath Allergies: Patient has no known allergies. Prior to Admission medications Medication Sig Start Date End Date Taking? Authorizing Provider acetaminophen (TYLENOL) 325 mg tablet Take 2 tablets (650 mg total) by mouth every 8 (eight) hours as needed for pain. Not In System Ref Prov albuterol (PROVENTIL,VENTOLIN) 2.5 mg /3 mL (0.083 %) nebulizer solution Inhale 3 mL (2.5 mg total)by nebulization every 6 (six) hours as needed for wheezing. Not In System Ref Prov aspirin 81 mg Take 1 tablet (81 mg total) by mouth in the morning. Not In System Ref Prov benzonatate (TESSALON PERLES) 200 mg capsule Take 1 capsule (200 mg total) by mouth 3 (three) timesa day as needed for cough. 07/27/23 Maggie Cruz, PER DIEM PHYSICAL THERAPIST ASSISTANT-[facility]ER[facility]AN folic acid (FOLVITE) 1 mg tablet Take 1 tablet (1 mg total) by mouth in the morning. Not In System Ref Prov lisinopriL (PRINIVIL,ZESTRIL) 2.5 mg tablet Take 1 tablet (2.5 mg total) by mouth in the morning. Not In System Ref Prov metFORMIN XR (GLUCOPHAGE XR) 750 mg 24 hr tablet Take 1 tablet (750 mg total) by mouth daily with breakfast. Not In System Ref Prov metoprolol (LOPRESSOR) 12.5 mg Take 1 split tablet (12.5 mg total) by mouth in the morning and 1 split tablet (12.5 mg total) before bedtime. Not In System Ref Prov nitroglycerin (NITROSTAT) 0.[address] 1 tablet (0.4 mg total) under the tongue every 5 (five) minutes as needed for chest pain. Not In System Ref Prov PARoxetine (PAXIL) 10 mg tablet Take 1 tablet (10 mg total) by mouth every morning. Not In System Ref Prov pioglitazone (ACTOS) 30 mg tablet Take 1 tablet (30 mg total) by mouth in the morning. Not In System Ref Prov simethicone (MYLICON) 80 mg chewable tablet Chew 1 tablet (80 mg total) and swallow every 6 (six) hours as needed for flatulence. Not In System Ref Prov simvastatin (ZOCOR) 40 mg tablet Take 1 tablet (40 mg total) by mouth nightly. Not In System Ref Prov sodium chloride 0.9 % injection Infuse 10 mL into a venous catheter every 12 (twelve) hours. 07/27/23Kydarrin Toddzer, PER DIEM PHYSICAL THERAPIST ASSISTANT-RN REFERRAL sodium chloride 0.9 % injection Infuse 10 mL into a venous catheter as needed for line care. 07/27/23Kyle D Krotzer, PER DIEM PHYSICAL THERAPIST ASSISTANT-RN REFERRAL sodium chloride 0.9 % injection Infuse 10 mL into a venous catheter as needed for line care (beforeand after each intermittent use). 07/27/23 Maggie Cruz, PER DIEM PHYSICAL THERAPIST ASSISTANT-RN REFERRAL ticagrelor (BRILINTA) 90 mg tablet Take by mouth every 12 (twelve) hours. Not In System Ref Prov Past Medical History: Patient has a past medical history of Acute coronary syndrome ([facility]), Anxiety disorder, Chronic obstructive asthma with exacerbation ([facility]), COPD (chronic obstructive pulmonary disease) ([facility]), Diabetes mellitus type 2, controlled ([facility]), Essential hypertension, Folate deficiency anemia, Heart failure ([facility]), Megaloblastic anemia, Muscle weakness (generalized), Myocardial infarct ([facility]), Obesity, Obstructive sleep apnea, SARAH (obstructive sleep apnea), Pancytopenia ([facility]), Presence of coronary artery bypass graft stent, and Supplemental oxygen dependent. Past Surgical History: Patient has a past surgical history that includes Cardiac surgery. Family History: Patient's family history includes Cancer in his father and mother; Diabetes in his father and mother; Heart attack in his father and mother; Stroke in his father and mother. Social History: Patient reports that he has never smoked. He has never used smokeless tobacco. He reports that he does not currently use alcohol. He reports that he does not use drugs. Review of Systems Review of Systems Constitutional: Negative for activity change, appetite change, chills, diaphoresis, fatigue and fever. HENT: Negative for tinnitus and trouble swallowing. Eyes: Negative for visual disturbance. Respiratory: Positive for shortness of breath. Negative for cough, chest tightness and wheezing. Cardiovascular: Negative for chest pain, palpitations and leg swelling. Gastrointestinal: Negative for abdominal pain, diarrhea, nausea and vomiting. Genitourinary: Negative for difficulty urinating. Skin: Negative for rash. Neurological: Negative for dizziness, syncope, speech difficulty, weakness, light-headedness, numbness and headaches. Psychiatric/Behavioral: Negative for sleep disturbance. OBJECTIVE BP 113/57 Pulse 80 Temp 37 C (98.6 F) (Oral) Resp 22 Ht 152.4 cm (5') Wt 109.2 kg (240 lb12.8 oz) SpO2 95% BMI 47.03 kg/m Intake/Output Summary (Last 24 hours) at 09/08/2023 1332 Last data filed at 09/08/2023 1310 Gross per 24 hour Intake -- Output 450 ml Net -450 ml Physical Exam Physical Exam Vitals and nursing note reviewed. Constitutional: General: He is not in acute distress. Appearance: He is obese. HENT: Head: Normocephalic and atraumatic. Right Ear: External ear normal. Left Ear: External ear normal. Nose: Nose normal. Mouth/Throat: Mouth: Mucous membranes are moist. Pharynx: Oropharynx is clear. Eyes: Conjunctiva/sclera: Conjunctivae normal. Pupils: Pupils are equal, round, and reactive to light. Neck: Vascular: No carotid bruit or JVD. Cardiovascular: Rate and Rhythm: Normal rate and regular rhythm. Pulses: Normal pulses. Pulmonary: Effort: Pulmonary effort is normal. Breath sounds: Examination of the right-lower field reveals decreased breath sounds. Examination ofthe left-lower field reveals decreased breath sounds. Decreased breath sounds and rales (Bibasilar)present. No wheezing. Abdominal: General: Bowel sounds are normal. Palpations: Abdomen is soft. Tenderness: There is no abdominal tenderness. There is no right CVA tenderness or left CVA tenderness. Musculoskeletal: Right lower le+ Pitting Edema present. Left lower le+ Pitting Edema present. Lymphadenopathy: Cervical: No cervical adenopathy. Skin: General: Skin is warm and dry. Capillary Refill: Capillary refill takes 2 to 3 seconds. Coloration: Skin is pale. Neurological: General: No focal deficit present. Mental Status: He is alert and oriented to person, place, and time. Psychiatric: Mood and Affect: Mood normal. Behavior: Behavior normal. Thought Content: Thought content normal. Judgment: Judgment normal. Medications Scheduled: Infusions: No current facility-administered medications for this encounter. As Needed: Allergies: Patient has no known allergies. Labs Recent Results (from the past 24 hour(s)) CBC auto differential Collection Time: 09/08/23 9:25 AM Result Value Ref Range White Blood Cells 5.4 4.0 - 11.0 X10E9/L RBC count 2.25 (L) 4.10 - 5.70 X10E12/L Hemoglobin 7.6 (L) 13.0 - 17.0 g/dL Hematocrit 23.4 (L) 39 - 49 % MCV 104 (H) 80 - 100 fL MCH 34.0 27 - 34 pg MCHC 32.6 32 - 36 g/dL RDW 17.8 (H) 11.5 - 15.0 % Platelets 144 (L) 150 - 450 X10E9/L MPV 10.4 7 - 12 fL % neutrophils 69.4 % % lymphocytes 18.9 % % monocytes 8.1 % % eosinophils 3.0 % % Basophils 0.6 % Neutrophils Absolute (A) 3.8 1.5 - 6.6 X10E9/L Lymphocytes Absolute 1.0 1.0 - 3.5 X10E9/L Monocytes Absolute 0.4 0 - 0.9 X10E9/L Eosinophils Absolute 0.2 0.0 - 0.4 X10E9/L Basophils Absolute 0.0 0.0 - 0.2 X10E9/L Comprehensive metabolic panel Collection Time: 09/08/23 9:25 AM Result Value Ref Range Sodium 135 134 - 146 mmol/L Potassium, Bld 3.7 3.5 - 5.0 mmol/L Chloride 101 98 - 109 mmol/L CO2 29 22 - 32 mmol/L Anion gap 5 5 - 15 mmol/L BUN 12 5 - 27 mg/dL Creatinine 0.96 0.70 - 1.20 mg/dL Glucose 130 (H) 65 - 99 mg/dL Calcium 8.3 (L) 8.5 - 10.5 mg/dL Total Protein 7.0 6.0 - 8.0 g/dL Albumin 3.0 (L) 3.2 - 5.3 g/dL Alkaline Phosphatase 91 39 - 130 U/L AST 22 0 - 41 U/L ALT 15 0 - 40 U/L Total bilirubin 0.6 0.3 - 1.2 mg/dL eGFR (CKD-EPI)non-race dependent 82 >59 ml/min/1.73sq.m Magnesium Collection Time: 09/08/23 9:25 AM Result Value Ref Range Magnesium 1.5 (L) 1.8 - 2.6 mg/dL Troponin I, High Sensitivity Collection Time: 09/08/23 9:25 AM Result Value Ref Range Troponin I, High Sensitivity 12 <21 ng/L B-type natriuretic peptide Collection Time: 09/08/23 9:25 AM Result Value Ref Range BNP 518 (H) <100.0 pg/mL Troponin I, High Sensitivity 1 Hour Collection Time: 09/08/23 10:26 AM Result Value Ref Range 1 Hour Trop I, High Sensitivity 12 <21 ng/L Radiology X-ray chest 1 view Result Date: 09/08/2023 Narrative: HISTORY AND/OR TECH NOTES SOB Difficulty breathing Chest pain PROCEDURE AP chest COMPARISON July 23 FINDINGS Sternal wires There is cardiomediastinal prominence There is increased hilar fullness and congestion There is left greater than right pleural effusion There are granular opacities b ilaterally There is suggestion of asymmetric left basilar volume loss and consolidation No visible pneumothorax or apical cavitary process IMPRESSION: Ilfw-ue-izpukwbu CHF with pleural effusions greater on the left There appears to be asymmetric left basilar consolidation and volume loss. Correlatefor pneumonia or aspiration clinically Suggest follow-up imaging to document clearing and normalization when appropriate CT should be considered if x-ray findings or symptoms persist Finalized by Pa Peres MD on 09/08/2023 9:47 AM HOSPITAL PROBLEM LIST Principal Problem: Acute on chronic congestive heart failure, unspecified heart failure type ([facility]) Active Problems: Anxiety disorder Benign essential hypertension Chronic diastolic congestive heart failure ([facility]) Chronic respiratory failure with hypoxia [place] 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 Dyslipidemia Gastroesophageal reflux disease without esophagitis Obstructive sleep apnea syndrome Type 2 diabetes mellitus with hyperglycemia, without long-term current use of insulin ([facility]) Pleural effusion, left ASSESSMENT & PLAN Acute on chronic diastolic CHF: Elevated BNP. Lasix 40 mg IV b.i.d.. Monitor daily weight and I&O. 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 Reviewed echo from 1 month ago the shows preserved LVEF of 55 to 60% reorder echo limited to check LVEF. Anxiety disorder: Supportive care. Continue home medications. Hypertension: Normotensive. Continue home medications. Chronic respiratory failure: Baseline home O2 2-3 L. continue oxygen at 3 L per nasal cannula. Titrate up if needed. CAD/dyslipidemia: Continue home aspirin and statin. GERD: Protonix. Sleep apnea: Home CPAP ordered. Dm type 2: Continue home metformin. Monitor blood glucose a.c. and HS cover sliding scale insulin. Pleural effusion: Lasix as above. Continue to monitor. Monitor kidney function and electrolytes daily. Replace electrolytes per protocol. Admission orders placed and home medications reconciled. DVT prophylaxis: EPC's and Lovenox. GI prophylaxis. Protonix PT/OT to evaluate and treat. DC planning: Discharge home in 1-2 days. Appreciate cardiology input. Maggie Cruz, SPENCER-RN REFERRAL, 09/08/2023 1:32 PM [facility] Internal Medicine 7AM-7PM (all facilities): EpicTawnyat or page through [employer]. 7PM-7AM ([facility], [facility] Psychiatry and Inpatient Rehab): EpicTawnyat or page, [phone]. 7PM-7AM ([place], [place], [place], [place] and [facility] Rehab): EpicChat or page through [employer]. This note is dictated with the use of M*Modal. Please note that this dictation was completed with computer voice recognition software. Quite often unanticipated grammatical, syntax, homophones, and other interpretive errors are inadvertently transcribed by the computer software. Please disregard these errors. Please excuse any errors that have escaped final proofreading. Maggie Cruz, PER DIEM PHYSICAL THERAPIST ASSISTANT-[facility] 09/08/23 6890 Physician Attestation I, Julia Man MD, personally performed a face to face diagnostic evaluation on this patient. I have reviewed the note authored by the advance practice provider including history, review of systems,physical examination,medical decision making and agree with the assessment and plan as written. I have seen and evaluated the patient, I have repeated the benoit portions of the physical exam and concur with the RASHAUN findings. I have reviewed all laboratory findings and imaging reports/films. I agree with the plan as noted. [facility] in [facility] Miscellaneous Notes* Telephone Encounter - Howard Thurston - 09/08/2023 10:53 AM EDT SPOKE WITH BRIAN TO SCHEDULE CONSULT WITH DR. NEFF HE STATED HE ALREADY FOLLOWS WITH A TRANSFUSION NURSE IN [place] documented in this encounterOhio[facility]24 Telephone encounter Note* Telephone Encounter - Howard Thurston - 09/08/2023 10:53 AM EDT SPOKE WITH BRIAN TO SCHEDULE CONSULT WITH DR. NEFF HE STATED HE ALREADY FOLLOWS WITH A TRANSFUSION NURSE [place] [facility] Emergency department Triage note* Nikki Busch RN - 09/08/2023 9:18 AM EDT Patient presents via EMS from [place] with complaints of chest pain and shortness of breath. Patient discharged from the hospital on August 24. Patient denies chest pain at present. Patient with history of COPD and is on home O2 at 2L [place]. [facility] Physician Emergency department Note* Shirley Dumont, - 09/08/2023 9:18 AM EDT Images from the original note were not included. History No chief complaint on file. Initial evaluation performed at 9:[address] Dumont. Patient is a 73 y.o. male who presents to the ED via EMS for evaluation of shortness of breath. Pt states that he has been having difficulty breathing with movement for a week. Pt states that he wentto therapy for the breathing and that it's not helping anymore. Pt reports that he had a heart stent placed late July due to blockage. Pt denies being sick. Pt notes that he takes metoprolol. Pt notes that he is on 2L of oxygen and that breathing treatments help his breathing. Pt denies current chest pain. Pt was given full aspirin by EMS. Pt has no known drug allergies. Pt has no other concerns at this time. History provided by: Patient and EMS/fire personnel language interpreter used?: No Problem List Items Addressed This Visit None Past Medical History: Diagnosis Date Acute coronary syndrome ([facility] Anxiety disorder Chronic obstructive asthma with exacerbation ([facility]) COPD (chronic obstructive pulmonary disease) ([facility]) Diabetes mellitus type 2, controlled ([facility]) Essential hypertension Folate deficiency anemia Heart failure ([facility]) Megaloblastic anemia Muscle weakness (generalized) Myocardial infarct ([facility]) Obesity Obstructive sleep apnea SARAH (obstructive sleep apnea) Pancytopenia ([facility]) Presence of coronary artery bypass graft stent Supplemental oxygen dependent Past Surgical History: Procedure Laterality Date CARDIAC SURGERY Travel Screening No screening recorded since 09/07/23 0913 Travel History Travel since 08/09/23 No documented travel since 08/09/23 Family History Problem Relation Age of Onset Diabetes Mother Stroke Mother Cancer Mother Heart attack Mother Heart attack Father Stroke Father Diabetes Father Cancer Father Social History Substance and Sexual Activity Drug Use Never Social History Tobacco Use Smoking status: Never Smokeless tobacco: Never Substance Use Topics Alcohol use: Not Currently Comment: last drink 2003 Drug use: Never Review of Systems Respiratory: Positive for shortness of breath. Cardiovascular: Negative for chest pain/discomfort. All other systems are reviewed and are negative except as noted. Physical Exam ED Triage Vitals Temp Pulse Resp BP SpO2 -- -- -- -- -- Temp src Heart Rate Source Patient Position BP Location FiO2 (%) -- -- -- -- -- There were no vitals filed for this visit. Physical Exam Vitals and nursing note reviewed. Constitutional: Appearance: Normal appearance. HENT: Head: Normocephalic and atraumatic. Nose: Nose normal. Mouth/Throat: Mouth: Mucous membranes are moist. Pharynx: Oropharynx is clear. Eyes: Extraocular Movements: Extraocular movements intact. Pupils: Pupils are equal, round, and reactive to light. Cardiovascular: Rate and Rhythm: Normal rate and regular rhythm. Pulses: Normal pulses. Heart sounds: Normal heart sounds. Pulmonary: Effort: Pulmonary effort is normal. Breath sounds: Wheezing (diffused expiratory) present. Abdominal: General: Abdomen is flat. Palpations: Abdomen is soft. Musculoskeletal: General: Normal range of motion. Cervical back: Normal range of motion and neck supple. Skin: Capillary Refill: Capillary refill takes less than 2 seconds. Neurological: General: No focal deficit present. Mental Status: He is alert and oriented to person, place, and time. Procedure Procedures Re-Evaluation Re-Evaluation ED Course Clinical Impressions as of 09/11/23 1023 Acute on chronic congestive heart failure, unspecified heart failure type (CMS-HCC) Dyspnea on exertion On potassium wasting diuretic therapy MDM Medical Decision Making Amount and/or Complexity of Data Reviewed Labs: ordered. Radiology: ordered. ECG/medicine tests: ordered. Risk OTC drugs. Prescription drug management. Kim Marcial (hayes) documented for Dr. Dumont. Chart Reviewed. Chief Complaint: shortness of breath. Plan of Care: Dr. Dumont will order CBC, Troponin I High Sensitivity, Magnesium, CMP, Troponin I High Sensitivity 1 Hour, and X-ray Chest. Labs notable for: BNP 518, RBC 2.25, Hemoglobin 7.6, Hematocrit 23.4. Imaging was independently viewed by Dr. Dumont and is notable for [id number] CHF with pleural effusions greater on the left, there appears to be asymmetric left basilar consolidation and volume loss. Agreeable with official radiologist read. 12:[address] Dumont reevaluated pt. Pt received lasix, had adequate urine output, and pt was ambulated with assistance and pt became severly dyspnic. 1:14 PM Maggie Cruz (hospitalist) is accepting of pt under Dr. Man for admission. On re-evaluation, patient is resting comfortably on bed. Results were discussed. Based on the diagnostic results and physical exam, pt requires admission. Pt is understanding and agreeable with plan of care. RESULTS Labs: Labs Reviewed CBC WITH AUTO DIFFERENTIAL - Abnormal; Notable for the following components: Result Value RBC count 2.25 (*) Hemoglobin 7.6 (*) Hematocrit 23.4 (*) MCV 104 (*) RDW 17.8 (*) Platelets 144 (*) All other components within normal limits COMPREHENSIVE METABOLIC PANEL - Abnormal; Notable for the following components: Glucose 130 (*) Calcium 8.3 (*) Albumin 3.0 (*) All other components within normal limits MAGNESIUM - Abnormal; Notable for the following components: Magnesium 1.5 (*) All other components within normal limits B-TYPE NATRIURETIC PEPTIDE - Abnormal; Notable for the following components: BNP 518 (*) All other components within normal limits TROPONIN I, HIGH SENSITIVITY TROP I, HIGH SENSITIVITY 1 HOUR Radiology: X-ray chest 1 view Result Date: 09/08/2023 Narrative: HISTORY AND/OR TECH NOTES SOB Difficulty breathing Chest pain PROCEDURE AP chest COMPARISON July 23 FINDINGS Sternal wires There is cardiomediastinal prominence There is increased hilar fullness and congestion There is left greater than right pleural effusion There are granular opacities b ilaterally There is suggestion of asymmetric left basilar volume loss and consolidation No visible pneumothorax or apical cavitary process IMPRESSION: Dsmy-us-flsyzcbs CHF with pleural effusions greater on the left There appears to be asymmetric left basilar consolidation and volume loss. Correlatefor pneumonia or aspiration clinically Suggest follow-up imaging to document clearing and normalization when appropriate CT should be considered if x-ray findings or symptoms persist Finalized by Pa Peres MD on 09/08/2023 9:47 AM NURSING NOTES AND VITALS REVIEWED The nursing notes within the ED encounter and vital signs as below have been reviewed. BP 113/57 Pulse 80 Temp 37 C (98.6 F) (Oral) Resp 22 Ht 152.4 cm (5') Wt 109.2 kg (240 lb12.8 oz) SpO2 95% BMI 47.03 kg/m PROGRESS NOTES The plan of care has been discussed with patient including today s results, in addition to providing specific details regarding counseling pertaining to the diagnosis and prognosis. All questions were answered at this time and they are agreeable with the plan ADDITIONAL PROVIDER NOTES At this time the patient has objective evidence of an acute process requiring hospitalization or inpatient management. Medications ipratropium-albuteroL (DUONEB) 0.5 mg-3 mg(2.5 mg base)/3 mL nebulizer solution 3 mL (3 mL nebulization Given 09/08/23 1027) methylPREDNISolone sod suc(PF) (Solu-MEDROL) injection 125 mg (125 mg intravenous Given 09/08/23 0954) ipratropium-albuteroL (DUONEB) 0.5 mg-3 mg(2.5 mg base)/3 mL nebulizer solution 3 mL (3 mL nebulization Given 09/08/23 1018) furosemide (LASIX) injection 40 mg (40 mg intravenous Given 09/08/23 1130) magnesium oxide (MAGOX) tablet 400 mg (400 mg oral Given 09/08/23 1309) Medication List None Diagnosis: 1. Acute on chronic congestive heart failure, unspecified heart failure type ([facility]) 2. Dyspnea on exertion Disposition: Patient's disposition: Admit Patient's condition is stabl Provider Statement By electronically signing this emergency patient record, the Emergency Physician/RDA/PA-C attests that all entries made into the electronic medical record by hayes Harrison prior to the Physician/RDA/PA-C signature reflect an accurate accounting of the evaluation and care rendered by that [facility] Physician/RDA/PA-C. The Emergency Physician/RDA/PA-C assumes full responsibility for those entries. The Emergency Physician/RDA/PA-C also attests that any patient testing or treatment that was instituted by nursing staff in accordance to Emergency Department Preemptive Guidelines have been reviewed and unless so stated elsewhere in this patient chart, the Physician/RDA/PA-C agrees with the testing and care provided. No Additional Attestations Kim Rincon 09/08/23 0919 Kim Rincon 09/08/23 0942 Kim Rincon 09/08/23 1001 Kim Rincon 09/08/23 1118 Shirley Dumont DO 09/08/23 1132 Kim Rincon 09/08/23 1304 Kim Rincon 09/08/23 1317 Kim Rincon 09/08/23 1318 Shirley Dumont DO 09/11/23 1112 [facility] Emergency department Note* Nikki Busch RN - 09/08/2023 9:18 AM EDT Patient presents via EMS from [place] with complaints of chest pain and shortness of breath. Patient discharged from the hospital on August 24. Patient denies chest pain at present. Patient with history of COPD and is on home O2 at 2L [place]. * Shirley Dumont, DO - 09/08/2023 9:18 AM EDT Images from the original note were not included. History No chief complaint on file. Initial evaluation performed at 9:[address] Dumont. Patient is a 73 y.o. male who presents to the ED via EMS for evaluation of shortness of breath. Pt states that he has been having difficulty breathing with movement for a week. Pt states that he wentto therapy for the breathing and that it's not helping anymore. Pt reports that he had a heart stent placed late July due to blockage. Pt denies being sick. Pt notes that he takes metoprolol. Pt notes that he is on 2L of oxygen and that breathing treatments help his breathing. Pt denies current chest pain. Pt was given full aspirin by EMS. Pt has no known drug allergies. Pt has no other concerns at this time. History provided by: Patient and EMS/fire personnel language interpreter used?: No Problem List Items Addressed This Visit None Past Medical History: Diagnosis Date Acute coronary syndrome ([facility] Anxiety disorder Chronic obstructive asthma with exacerbation ([facility]) COPD (chronic obstructive pulmonary disease) ([facility] Diabetes mellitus type 2, controlled ([facility]) Essential hypertension Folate deficiency anemia Heart failure ([facility]) Megaloblastic anemia Muscle weakness (generalized) Myocardial infarct ([facility]) Obesity Obstructive sleep apnea SARAH (obstructive sleep apnea) Pancytopenia ([facility]) Presence of coronary artery bypass graft stent Supplemental oxygen dependent Past Surgical History: Procedure Laterality Date CARDIAC SURGERY Travel Screening No screening recorded since 09/07/23 0913 Travel History Travel since 08/09/23 No documented travel since 08/09/23 Family History Problem Relation Age of Onset Diabetes Mother Stroke Mother Cancer Mother Heart attack Mother Heart attack Father Stroke Father Diabetes Father Cancer Father Social History Substance and Sexual Activity Drug Use Never Social History Tobacco Use Smoking status: Never Smokeless tobacco: Never Substance Use Topics Alcohol use: Not Currently Comment: last drink 2003 Drug use: Never Review of Systems Respiratory: Positive for shortness of breath. Cardiovascular: Negative for chest pain/discomfort. All other systems are reviewed and are negative except as noted. Physical Exam ED Triage Vitals Temp Pulse Resp BP SpO2 -- -- -- -- -- Temp src Heart Rate Source Patient Position BP Location FiO2 (%) -- -- -- -- -- There were no vitals filed for this visit. Physical Exam Vitals and nursing note reviewed. Constitutional: Appearance: Normal appearance. HENT: Head: Normocephalic and atraumatic. Nose: Nose normal. Mouth/Throat: Mouth: Mucous membranes are moist. Pharynx: Oropharynx is clear. Eyes: Extraocular Movements: Extraocular movements intact. Pupils: Pupils are equal, round, and reactive to light. Cardiovascular: Rate and Rhythm: Normal rate and regular rhythm. Pulses: Normal pulses. Heart sounds: Normal heart sounds. Pulmonary: Effort: Pulmonary effort is normal. Breath sounds: Wheezing (diffused expiratory) present. Abdominal: General: Abdomen is flat. Palpations: Abdomen is soft. Musculoskeletal: General: Normal range of motion. Cervical back: Normal range of motion and neck supple. Skin: Capillary Refill: Capillary refill takes less than 2 seconds. Neurological: General: No focal deficit present. Mental Status: He is alert and oriented to person, place, and time. Procedure Procedures Re-Evaluation Re-Evaluation ED Course Clinical Impressions as of 09/11/23 1023 Acute on chronic congestive heart failure, unspecified heart failure type (CMS-HCC) Dyspnea on exertion On potassium wasting diuretic therapy MDM Medical Decision Making Amount and/or Complexity of Data Reviewed Labs: ordered. Radiology: ordered. ECG/medicine tests: ordered. Risk OTC drugs. Prescription drug management. Kim Marcial (hayes) documented for Dr. Dumont. Chart Reviewed. Chief Complaint: shortness of breath. Plan of Care: Dr. Dumont will order CBC, Troponin I High Sensitivity, Magnesium, CMP, Troponin I High Sensitivity 1 Hour, and X-ray Chest. Labs notable for: BNP 518, RBC 2.25, Hemoglobin 7.6, Hematocrit 23.4. Imaging was independently viewed by Dr. Dumont and is notable for [id number] CHF with pleural effusions greater on the left, there appears to be asymmetric left basilar consolidation and volume loss. Agreeable with official radiologist read. 12:[address] Dumont reevaluated pt. Pt received lasix, had adequate urine output, and pt was ambulated with assistance and pt became severly dyspnic. 1:14 PM Maggie Cruz (hospitalist) is accepting of pt under Dr. Man for admission. On re-evaluation, patient is resting comfortably on bed. Results were discussed. Based on the diagnostic results and physical exam, pt requires admission. Pt is understanding and agreeable with plan of care. RESULTS Labs: Labs Reviewed CBC WITH AUTO DIFFERENTIAL - Abnormal; Notable for the following components: Result Value RBC count 2.25 (*) Hemoglobin 7.6 (*) Hematocrit 23.4 (*) MCV 104 (*) RDW 17.8 (*) Platelets 144 (*) All other components within normal limits COMPREHENSIVE METABOLIC PANEL - Abnormal; Notable for the following components: Glucose 130 (*) Calcium 8.3 (*) Albumin 3.0 (*) All other components within normal limits MAGNESIUM - Abnormal; Notable for the following components: Magnesium 1.5 (*) All other components within normal limits B-TYPE NATRIURETIC PEPTIDE - Abnormal; Notable for the following components: BNP 518 (*) All other components within normal limits TROPONIN I, HIGH SENSITIVITY TROP I, HIGH SENSITIVITY 1 HOUR Radiology: X-ray chest 1 view Result Date: 09/08/2023 Narrative: HISTORY AND/OR TECH NOTES SOB Difficulty breathing Chest pain PROCEDURE AP chest COMPARISON July 23 FINDINGS Sternal wires There is cardiomediastinal prominence There is increased hilar fullness and congestion There is left greater than right pleural effusion There are granular opacities b ilaterally There is suggestion of asymmetric left basilar volume loss and consolidation No visible pneumothorax or apical cavitary process IMPRESSION: Ytfr-bg-sugdcqpu CHF with pleural effusions greater on the left There appears to be asymmetric left basilar consolidation and volume loss. Correlatefor pneumonia or aspiration clinically Suggest follow-up imaging to document clearing and normalization when appropriate CT should be considered if x-ray findings or symptoms persist Finalized by Pa Peres MD on 09/08/2023 9:47 AM NURSING NOTES AND VITALS REVIEWED The nursing notes within the ED encounter and vital signs as below have been reviewed. BP 113/57 Pulse 80 Temp 37 C (98.6 F) (Oral) Resp 22 Ht 152.4 cm (5') Wt 109.2 kg (240 lb12.8 oz) SpO2 95% BMI 47.03 kg/m PROGRESS NOTES The plan of care has been discussed with patient including today s results, in addition to providing specific details regarding counseling pertaining to the diagnosis and prognosis. All questions were answered at this time and they are agreeable with the plan ADDITIONAL PROVIDER NOTES At this time the patient has objective evidence of an acute process requiring hospitalization or inpatient management. Medications ipratropium-albuteroL (DUONEB) 0.5 mg-3 mg(2.5 mg base)/3 mL nebulizer solution 3 mL (3 mL nebulization Given 09/08/23 1027) methylPREDNISolone sod suc(PF) (Solu-MEDROL) injection 125 mg (125 mg intravenous Given 09/08/23 0954) ipratropium-albuteroL (DUONEB) 0.5 mg-3 mg(2.5 mg base)/3 mL nebulizer solution 3 mL (3 mL nebulization Given 09/08/23 1018) furosemide (LASIX) injection 40 mg (40 mg intravenous Given 09/08/23 1130) magnesium oxide (MAGOX) tablet 400 mg (400 mg oral Given 09/08/23 1309) Medication List None Diagnosis: 1. Acute on chronic congestive heart failure, unspecified heart failure type (CMS-HCC) 2. Dyspnea on exertion Disposition: Patient's disposition: Admit Patient's condition is stabl Provider Statement By electronically signing this emergency patient record, the Emergency Physician/RDA/PA-C attests that all entries made into the electronic medical record by hayes Harrison prior to the Physician/RDA/PA-C signature reflect an accurate accounting of the evaluation and care rendered by that [facility] Physician/RDA/PA-C. The Emergency Physician/RDA/PA-C assumes full responsibility for those entries. The Emergency Physician/RDA/PA-C also attests that any patient testing or treatment that was instituted by nursing staff in accordance to Emergency Department Preemptive Guidelines have been reviewed and unless so stated elsewhere in this patient chart, the Physician/RDA/PA-C agrees with the testing and care provided. No Additional Attestations Kim Rincon 09/08/23 0919 Kim Rincon 09/08/23 0942 Kim Rincon 09/08/23 1001 Kim Rincon 09/08/23 1118 Shirley Dumont DO 09/08/23 1132 Kim Rincon 09/08/23 1304 Kim Rincon 09/08/23 1317 Kim Rincon 09/08/23 1318 Shirley Dumont DO 09/11/23 1112 documented in [facility] Miscellaneous Notes* Telephone Encounter - Howard Thurston - 08/09/2023 4:00 PM EDT CANCELED CONSULT WITH HE WILL CALL TO RESCHEDULE WHEN HE IS OUT OF THE FACILITY documented in this encounterOhio[facility]06-[facility]-2024 Telephone encounter Note* Telephone Encounter - Howard Thurston - 08/09/2023 4:00 PM EDT CANCELED CONSULT WITH HE WILL CALL TO RESCHEDULE WHEN HE IS OUT OF THE FACILITY [facility]05-30-[facility] Discharge summary Author Melanie Taylor [facility] July 21, 2023 1:21pmNote Date/TimeMay 2023 1:21pm[place] [address] Discharge Summary Signed Patient: Brian Mandel MR#: [id number] : 1950 Acct:[id number] Age/Sex: 73 / M Adm Date: 4 Loc: Room: [address] [place] [address]: Melanie Taylor DO Copies to: Melanie Taylor DO~ Providers Date of Discharge: 07/21/23 Discharging Provider: Melanie Taylor Primary Care Provider: Melanie Taylor Consults: 07/18/23 13:07 Consult to Cardiology Routine Comment: Consulting Provider: [facility], [facility] Reason For Exam: angina, chf exacerbation Has Provider Been Notified: Yes Date of Notification: 07/18/23 Time of Notification: 13:29 07/19/23 07:23 Consult to Hematology Routine Comment: Consulting Provider: Harjinder Gibbons II Reason For Exam: pancytopenia Has [...] anemia: Final Diagnosis Final Discharge Diagnosis: 1. VT, PCI performed 2. Dyspnea, improving 3. Weakness, patient to get rehab at halfway facility 4. Diabetes, stable on medication 5. Macrocytic anemia and pancytopenia, follow-up with oncology 6. Folate deficiency, replete folate started in the hospital 7. COPD on nasal cannula oxygen, stable 8. Hypertension, stable 9. 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 He did have elevated troponins in the emergency room and he was monitored overnight and his troponins did elevate a little bit more. Cardiology ultimately decided to take him to the [facility] where stents were placed patient was having [...] patient and determined he would benefit from halfway facility for rehabilitation. Patient initially refused this but ultimately decided he was agreeable to it. Patient'sblood pressure and blood sugar remained stable throughout his hospital admission. Patient was accepted into halfway facility for rehab and he was discharged [...] & COR Angio w/grafts - W Kai Darien, DO p CL Stent 1st Vessel LM KARL - W Kai Ledezma DO Complications Complications: None Discharge Plan Discharge Plan Patient Disposition: Penitentiary Facility Activity: Ambulate as Tolerated and With Assist Diet: Diabetic, Carb Count and Low-Sodium Additional Instructions: DISCHARGE INSTRUCTIONS FOR ANGIOPLASTY/CORONARY/PERIPHERAL/STENT IMPLANT FOR ADULT ANTICOAGULATION -Since the greatest risk of a blood clot forming with the stent occurs in the first 2-3 weeks afterimplantation, you will need to take anticoagulants for at least 12-18 months. ANTICOAGULATION MEDICATION Aspirin 81mg once a day, Ticagrelor (Brilinta) 90mg twice a day STATIN MEDICATION Simvastatin 40 mg Daily Drug-Eluting Stent (KARL) DO NOT discontinue Brilinta/Aspirin during the first few months regardless of what you are advised by your family doctor or pharmacist, without first calling the field laboratory operator who implanted the stent. If you require [...] weight lifting, stair steppers, etc. until the field laboratory operator approves these activities. Check with the field laboratory operator on your first follow-up visit. CALL YOUR DRILL RUNNER HELPER: -If bleeding should occur from the catheter insertion site- apply pressure to the site then immediately call us. -Report any fever, redness, drainage, increased swelling, or firmness at the catheter insertion site. Some bruising or slight swelling may be present at thetime of discharge. -Should arm or leg become cold, numb, white, or blue, contact the field laboratory operator immediately. -IF you should experience episodes of angina, e.g. chest discomfort, heaviness, tightness, pressureburning with or without radiation to the neck, jaw, arms or back- use 1 Nitrostat tablet under yourtongue every 5-10 minutes and up to three tablets. IF NO RELIEF, CALL 911 or GO TO THE NEAREST EMERGENCY ROOM. -Please notify our office if you have recurrent angina. -Cardiac Rehab Education Provided. Participation in the Cardiopulmonary Rehabilitation program is recommended. The attending field laboratory operator or a nurse clinician should provide you with specificinstructions regarding activity, diet, medications, and further follow up for you. Follow the medication instructions provided on your discharge. If the dosages and instructions on this sheet differ from the dosage and instructions on the bottle, follow the instructions on the bottle. [facility] is not responsible for incorrect prescription information provided by thepatient during their visit. Do not stop your medications without consulting your health care provider. Please take the list with you to your next doctor's appointment. Instructions: Coronary Angioplasty (DC), Coronary Stenting (DC), Angina (DC), Chest Pain (DC), DrugEluting Stents Prescriptions: New Brilinta 90 mg Tablet [...] tablet Orally Once a day Follow Up: Melanie Taylor DO [Primary Care Provider] - (Once d/c from [facility]) Luz Dover APRN [Nurse Practitioner] - 07/27/23 8:30 am Harjinder Gibbons II, DO [Active Staff - D.O.] [...] % (Auto) 72.9, Lymph % (Auto) 13.0, [place] % (Auto) 9.4, Eos % (Auto) 3.7, Baso % (Auto) 1.0, Nucleat RBC Rel Count 0.2, Neut # (Auto) 4.0, Lymph # (Auto) 0.7 L, [place] # (Auto) 0.5, Eos # (Auto) 0.2, [...] 07/20/23 16:17: POC Glucose 121 Documented By: Melanie Taylor DO 07/21/23 131 6 Signed By: <Electronically signed by Melanie Taylor, DO> 07/21/23 1321 [facility] Work Phone: 1(238) 657-745405-29-2024 Progress note Author Melanie Taylor [facility] July 20, 2023 12:20pmNote Date/TimeMay 2023 12:15pmD[place] [address] Family Practice Progress Note Signed Patient: Brian Mandel MR#: [id number] : 1950 Acct:[id number] Age/Sex: 73 / M Adm Date: 4 Loc: Room: [address] [place] [address] Type: ADM IN Attending Dr: Melanie Taylor DO Copies to: ~ Date of Service: 07/20/2023 Subjective Subjective Narrative: Brian is resting comfortably in bed and he is status post 1 day from PCI. His chest discomfort is doing better. He did state that when he got up today with PT he had some dizziness and some shortnessof breath and he had to sit back down. PT is planning to work with him again later today. He did have some hematuria earlier this morning but per nursing staff it is clearing up at this time. PT/OT evaluated the patient and determined that halfway facility would be ideal for him for [...] MPV Neut % (Auto) Lymph % (Auto) [place] % (Auto) Eos % (Auto) Baso % (Auto) Nucleat RBC Rel Count Neut # (Auto) Lymph # (Auto) [place] # (Auto) Eos # (Auto) Baso # [...] % (Auto) 75.5 Lymph % (Auto) 13.3 [place] % (Auto) 6.6 Eos % (Auto) 3.6 Baso % (Auto) 1.0 Nucleat RBC Rel Count 0.3 Neut # (Auto) 4.8 Lymph # (Auto) 0.9 L [place] # (Auto) 0.4 Eos # (Auto) 0.2 [...] Therapy Recommendations: OT Recommendations OT Recommended Discharge Penitentiary Facility Location PT Recommendations PT Recommended Discharge Penitentiary Facility Location PT Recommended Services at Physical [...] continue with IV Lasix for now. Discharge planningfor tomorrow as this is when patient can get a ride and he needs to be monitored overnight to make sure that his hematuria resolves and he remained stable. He will follow-up with hematology and cardiology in the outpatient. Will start him on folic acid and oral replacement. Had a long conversation with him regarding halfway facility versus home with outpatient home health. I strongly recommended that he go to a halfway facility as he is very weak and has a high risk of readmission and doing poorly if he goes straight home even with home health. Patient is adamantly refusing halfway facility and he understands the risks of going home. He does state that he has a friend that can come be with him and he feels he will be ready for discharge tomorrow which I agree with. Documented By: Melanie Taylor, 07/20/23 121 3 Signed By: <Electronically signed by Melanie Taylor, DO> 07/20/23 1220 [facility] Work Phone: 1(888) 221-122005-29-2024 Progress note Author Orville Owens [facility] July 20, 2023 10:52amNote Date/TimeMay 2023 10:52amD[place] [address] Cardiology Progress Note Signed Patient: Brian Mandel MR#: [id number] : 1950 Acct:[id number] Age/Sex: 73 / M Adm Date: 4 Loc: Room: [address] [place] [address] Type: ADM IN Attending Dr: Melanie Taylor DO Copies to: ~ Date of [...] MPV Neut % (Auto) Lymph % (Auto) [place] % (Auto) Eos % (Auto) Baso % (Auto) Nucleat RBC Rel Count Neut # (Auto) Lymph # (Auto) [place] # (Auto) Eos # (Auto) Baso # [...] % (Auto) 75.5 Lymph % (Auto) 13.3 [place] % (Auto) 6.6 Eos % (Auto) 3.6 Baso % (Auto) 1.0 Nucleat RBC Rel Count 0.3 Neut # (Auto) 4.8 Lymph # (Auto) 0.9 L [place] # (Auto) 0.4 Eos # (Auto) 0.2 [...] - Cardiology (1) 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: Assessment/Problem Details: Patient presented with unstable progression of his coronary disease with acute coronary syndrome. He was found of left main trunk lesion extending into the circumflex. He was fortuitously intervened upon in an uncomplicated fashion. His postprocedural course has been uneventful. Qualifiers: [place] vs. transplanted heart: [place] heart Associated angina: with unstable angina Qualified Code(s): I25.110 - Atherosclerotic heart disease of [place] coronary artery with unstable angina pectoris Code(s): I25.10 - Atherosclerotic heart disease of [place] coronary artery without angina pectoris (2) Acute [...] have some transportation logistical issues. Documented By: Orville Owens MD 1049 Signed By: <Electronically signed by MD Orville Owens> 07/20/23 1052 [facility] Work Phone: 1(566) 815-388305-28-2024 [facility] Procedure [facility]05-28-2024 Consult note Author Harjinder Gibbons [facility] July 19, 2023 10:50amNote Date/TimeMay 2023 10:[address] [address] Med Onc/Hem Consult Note Signed Patient: Brian Manedl MR#: [id number] : 1950 Acct:[id number] Age/Sex: 73 / M Adm Date: 4 Loc: Room: [address] [place] [address] Type: ADM IN Attending Dr: Melnaie Taylor DO Copies to: DO Harjinder Gaytan II, DO~ CONSULT DATE: 07/19/2023 REQUESTING PROVIDER: Melanie Taylor DO HISTORY OF PRESENT: 73-year-old male. Presented [facility] emergency room with intermittent chest pain on exertion over afew months time. Also increasing shortness of breath. Baseline COPD on 2 L of oxygen, hypertension,type 2 diabetes, gastroesophageal reflux disease, CHF, gout, sleep apnea with use of CPAP, hyperlipidemia, anxiety, depression, history of recurrent renal stones. Outpatient medications include aspirin, simvastatin, metoprolol, lisinopril, pioglitazone, metformin, paroxetine. Coronary artery disease with a CABG in 2007. Chest x-ray showed a pleural effusion and elevated BNP and elevated troponins. Denies fevers, sweats, chills, weight loss recent. In the [facility] emergency room his hemoglobin was 8.5. He denies any history of bleeding or melena. He was [facility] to [facility] from the [facility] emergencyroom and given diuretics, cardiology consult. Hematology [...] had suggested mild anemia in the past aswell. His MCV's were as high as 103 in 2019 as well. In 2019 and 2019 his platelets trended efohvro508 and 220. [facility] Medical History (Updated 07/19/23 @ 10:50 by Harjinder Gibbons II, DO) Macrocytic anemia COPD (chronic obstructive pulmonary disease) Anxiety Type 2 diabetes mellitus with hyperglycemia, without long-term current use of insulin Spondylosis of lumbosacral region without myelopathy or radiculopathy Psychophysiological insomnia Other chronic pain Obstructive sleep apnea Mucopurulent chronic bronchitis Mixed hyperlipidemia Hernia GERD with esophagitis Erectile dysfunction Dependence on supplemental oxygen 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 Chronic respiratory failure with hypoxia [...] tablet,delayed release (Aspir-) 81 mg PO DAILY VT prevention 07/01/17 [History Confirmed 07/18/23] simvastatin 40 [...] 10.5 H, Neut % (Auto) 66.0, Lymph %(Auto) 22.9, [place] % (Auto) 6.8, Eos %(Auto) 2.9, Baso % (Auto) 1.4, Nucleat RBC Rel Count 0.3, Neut# (Auto) 4.1, Lymph # (Auto) 1.4, [place] # (Auto) 0.4, Eos # (Auto) 0.2, Baso # (Auto) 0.1, PHA Creatinine Clear 62.79, Sodium 140, Potassium 4.3, Chloride 99, Carbon Dioxide 37.5 H, Anion Gap 7.8, BUN17, Creatinine 1.06, Est GFR (CKD-EPI) > 60.0, Glucose 103 H, Calcium 9.2, Magnesium 1.6 L, Total Bilirubin 0.6, AST 14, ALT 7,Alkaline Phosphatase 78, B-Natriuretic Peptide 438.0 H, Total Protein6.6, Albumin 3.6, Globulin 3.0, Albumin/Globulin Ratio 1.2 [...] affected organ. No Active Chemotherapy Documented By: Harjinder Gibbons II, DO 07/18 1024 Signed By: <Electronically signed by Harjinder Gibbons II, DO> 07/19/23 1050 [facility] Work Phone: 1(680) 921-452105-28-2024 History and physical note Author Melanie Taylor [facility] July 19, 2023 7:34amNote Date/TimeMay 2023 7:34amD[place] [address] Family Practice History&Phys Signed Patient: Brian Mandel MR#: [id number] : 1950 Acct:[id number] Age/Sex: 73 / M Adm Date: 4 Loc: Room: [address] [place] [address] Type: ADM IN Attending Dr: Melanie Taylor DO Copies to: Melanie Taylor DO~ Date of Service: 07/19/2023 HPI History of Present Illness Chief complaint: Chest pain with exertion HPI: Mr. Mandel is a 73 year old male who presented to the [facility] emergency roomfor a couple monthsof chest pain with exertion that was progressing. He also complained of some increasing shortness of breath. Patient is on 2 to 3 L nasalcannula at baseline related to his longstanding COPD. He also has hypertension,type II diabetes, known coronary disease with a CABG in 2007. In the [facility] emergency room patient had a full workup to include a chest x-ray and EKG and labs. Chest x-ray showed left-sided pleural effusion and labs showed an elevated BNP over 1400 as well as an elevated troponin of 144 and a repeat of 151. Because patient's cardiology is [facility] and his acute coronary c omplaints it was felt that he should be transferred to [facility]. EKG did not show any acute coronary [...] diet per him. Of note in the [facility] ER patient's hemoglobin was 8.5. He denies any recent history of bleeding. Patient's vitals here have been stable as they were in the [facility] ER. [facility] ER contacted cardiology here at [facility] who agreed that he should have further workup. Review of Systems Review of Systems All other systems reviewed & are negative unless noted below or in HPI [facility] Medical History (Updated 07/19/23 @ 07:32 by Melanie Taylro DO) COPD (chronic obstructive pulmonary disease) Anxiety Type 2 diabetes mellitus with hyperglycemia, without long-term current use of insulin Spondylosis of lumbosacral region without myelopathy or radiculopathy Psychophysiological insomnia Other chronic pain Obstructive sleep apnea Mucopurulent chronic bronchitis Mixed hyperlipidemia Hernia GERD with esophagitis Erectile dysfunction Dependence on supplemental oxygen 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 Chronic respiratory failure with hypoxia [...] tablet,delayed release (Aspir-) 81 mg PO DAILY VT prevention 07/01/17 [History Confirmed 07/18/23] simvastatin 40 [...] % (Auto) 22.9 % (.) 07/19/23 06:02 [place] % (Auto) 6.8 % (.) 07/19/23 06:02 Eos % (Auto) 2.9 % (.) 07/19/23 06:02 Baso % (Auto) 1.4 % (.) 07/19/23 06:02 Nucleat RBC Rel Count 0.3 /100 WBC (0-0.5) 07/19/23 06:02 Neut # (Auto) 4.1 x10E3/uL (1.8-7.7) 07/19/23 06:02 Lymph # (Auto) 1.4 x10E3/uL (1.00-4.8) 07/19/23 06:02 [place] # (Auto) 0.4 x10E3/uL (0.0-0.8) 07/19/23 06:02 [...] and continue IV Lasix at 40 mg. [facility] ER gave 20 mg. Will give daily potassium as well and monitor kidney function and labs while on IV Lasix. Consult cardiology and appreciate their input. Will continue home medicine but will stop Actos. Monitor blood sugars and sliding scale insulin for coverage. PT/OT to evaluate for discharge planning. Patient had a low hemoglobin, plateletcount, and white blood cell count at [facility] and again here at [facility] therefore hematology will be consulted for pancytopenia. Patient's prior blood work back in 2018 did not show this. Patient has not beencompliant in the outpatient with getting updated labs so unclear when this started or the underlying cause of it. He has no evidence of active bleeding atthis time. Patient will be placed on fluid restrictions, salt restrictions, betty diabetic diet. Lovenox for DVT prophylaxis. Patienthas not been keeping a good heart failure [...] and extremities was normal.: Yes Documented By: Melanie Taylor DO 07/19/23 072 4 Signed By: <Electronically signed by Melanie Taylor DO> 07/19/23 0734 [facility] Work Phone: 1(493) 680-928205-27-2024 Consult note Author Zakia Butcher [facility] July 18, 2023 6:48pmNote Date/TimeMay 2023 4:59pm[place] [address] Cardiology Consult Note Signed Patient: Brian Mandel MR#: [id number] : 1950 Acct:[id number] Age/Sex: 73 / M Adm Date: 4 Loc: 3T Room: [address] [place] [address] Type: ADM IN Attending Dr: Melanie Taylor DO Copies to: MD Melanie Laura, ~ Cardiology HPI History of Present Illness Consult Date: 07/18/23 HPI: Mr. Mandel is a 73 year old male with past medical history significant for CAD status post CABG in 2007, follows with Dr. Owens, COPD on 3L home O2. He initially presented to the [facility] ER with a 1 month history of worsening dyspnea on exertion and retrosternal chest pressure. He reports thesymptoms have progressively worsened in the last few days and decided to present to the ER for further evaluation. Chest pain has been responsive to Nitroglycerine. Denied orthopnea, PND or weight gain but does endorse BLE edema. No palpitationsor syncope reported. EKG on arrival showed sinus rhythm with nonspecific T wave changes. Chest x-ray was significant forlarge left pleural effusion. Troponin was elevated at 144; NT proBNP 1498 He received 20 mg IV Lasix and was transferred to [facility] [place] ofacute congestive heart failure and elevated troponin. Troponin here: 114-->106 Home medications: lisinopril 2.5 mg daily, Lopressor 25mg BID; PNR NTG; simvastatin 40 mg daily. Review of Systems Review of Systems All other systems reviewed & are negative unless noted below or in HPI [facility] Medical History (Updated 07/18/23 @ 13:07 by Melanie Taylor, ) COPD (chronic obstructive pulmonary disease) Anxiety Type 2 diabetes mellitus with hyperglycemia, without long-term current use of insulin Spondylosis of lumbosacral region without myelopathy or radiculopathy Psychophysiological insomnia Other chronic pain Obstructive sleep apnea Mucopurulent chronic bronchitis Mixed hyperlipidemia Hernia GERD with esophagitis Erectile dysfunction Dependence on supplemental oxygen 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 Chronic respiratory failure with hypoxia [...] tablet,delayed release (Aspir-) 81 mg PO DAILY VT prevention 07/01/17 [History Confirmed 07/18/23] simvastatin 40 [...] Mixed hyperlipidemia (6) 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: Code(s): I25.10 - Atherosclerotic heart disease of kobuk coronary artery without angina pectoris (7) COPD (chronic obstructive pulmonary disease): Code(s): J44.9 - Chronic obstructive pulmonary disease, unspecified Plan Mr. Mandel is a 73 year old male with past medical history significant for CAD status post CABG in 2007, follows with Dr. Owens, COPD on 3L home O2 who presented with 1 month history of worsening dyspnea on exertion and retrosternalchest pressure. EKG on arrival showed sinus rhythm with nonspecific T wave changes. Chest x-ray was significant forlarge left pleural effusion. Troponin was elevated at 144; NT proBNP 1498 Troponin here: 114-->106 Assessment: Acute decompensated CHF. NYHA III Atypical chest pain Hx of CAD s/p CABG in 2007 Troponin elevation flat trend-likely type II VT in the setting of CHF. EKG without [...] signed by Zakia Butcher MD> 07/18/23 [address] Work Phone: 1(849) 472-542209-20-2023 Evaluation note* Encounter Date Diagnosis Assessment Notes Treatment Notes Treatment Clinical Notes Oct, Hypertension (ICD-10 - I10) Oct,sychophysiological insomnia (ICD-10 - F51.04) Oct,Type 2 diabetes mellitus with hyperglycemia, without long-term current use of insulin (ICD-10 - E11.65) [facility] Other 08-24-2023 Evaluation note* Encounter Date Diagnosis Assessment Notes Treatment Notes Treatment Clinical Notes Sep, Type 2 diabetes nahid itus with hyperglycemia, without long-term current use of insulin (ICD-10 - E11.65) Sep,Well adult exam (ICD-10 - Z00.00)72-year-old male who has a few chronic medical conditions but is overall doing well except for his chronic lumbar pain. 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 Referral given today. Patient is due for [...] 6 months or sooner if an acute issuearises. His A1c today shows excellent control of his diabetes. Sep,Spondylosis of lumbosacral region without myelopathy or radiculopathy (ICD-10 - M47.817) Sep,Screening for prostate cancer (ICD-10 - Z12.5) Sep,Mixed hyperlipidemia (ICD-10 - E78.2) Sep,Hypertension (ICD-10 - I10) Sep,oronary artery disease involving kobuk coronary artery of kobuk heart without angina pectoris (ICD-10 - I25.10) Sep,ependence on supplemental oxygen (ICD-10 - Z99.81) Sep,sychophysiological insomnia (ICD-10 - F51.04) Sep,nxiety (ICD-10 - F41.9) Sep,ERD with esophagitis (ICD-10 - K21.0) Sep,Medication monitoring encounter (ICD-10 - Z51.81) [facility] Other 08-10-2023 Evaluation note* Encounter Date Diagnosis Assessment Notes Treatment Notes Treatment Clinical Notes Sep, Hypertension (ICD-10 - I10) [facility] Other 08-07-2023 Evaluation note* Encounter Date Diagnosis Assessment Notes Treatment Notes Treatment Clinical Notes Sep, Type 2 diabetes nahid itus with hyperglycemia, without long-term current use of insulin (ICD-10 - E11.65) Sep,oronary artery disease involving kobuk coronary artery of kob[place] heart without angina pectoris (ICD-10 - I25.10) Sep,ERD with esophagitis (ICD-10 - K21.0) [facility] Other 09-23-2022 Evaluation note* Encounter Date Diagnosis Assessment Notes Treatment Notes Treatment Clinical Notes Oct, Type 2 diabetes nahid itus with hyperglycemia, without long-term current use of insulin (ICD-10 - E11.65) [facility] Other 08-29-2022 Evaluation note* Encounter Date Diagnosis [...] 5.2. No changes with his medication regimen. Sep,Hypertension (ICD-10 - I10)Blood pressure is very well controlled today and he is to continue with his current medication regimen. Continue with metoprolol 25 mg twice daily. Sep,Mixed hyperlipidemia (ICD-10 - E78.2)Patient was encouraged to get the lab work done prior to his next appointment so we can review these results and know how he is doing. Continue with simvastatin 40 mg daily. Sep,pondylosis of lumbosacral region without myelopathy or radiculopathy (ICD-10 - M47.817)Patient given referral to pain management and it was printed for him so he can take it to a pain specialist of his choosing. Sep,GERD with esophagitis (ICD-10 - K21.0)Patient is doing well on pantoprazole 20 mg daily and he is to continue with it. Sep,Medication monitoring encounter (ICD-10 - Z51.81) [facility] Other 07-05-2022 Evaluation note* Encounter Date Diagnosis Assessment Notes Treatment Notes Treatment Clinical Notes Aug, Type 2 diabetes nahid itus with hyperglycemia, without long-term current use of insulin (ICD-10 - E11.65) [facility] Other 05-18-2022 Evaluation note* Encounter Date Diagnosis Assessment Notes Treatment Notes Treatment Clinical Notes June, Type 2 diabetes nahid itus with hyperglycemia, without long-term current use of insulin (ICD-10 - E11.65) Patient is doing extremely well now that he is cut out regular pop and with the addition of Actos 30 mg daily. He is to continue with this medication. Because he still cannot get his glucometer worksI will send in a new 1. His old glucometer is 3 years old. He needs to start checking his blood sugars regularly. Patient is also to continue with his metformin center 50 mg standard release daily. His microalbumin creatinine ratio is slightly elevated today we will add in low-dose lisinopril. June,Hypertension (ICD-10 - I10)Patient blood pressure is well controlled and he is to continue with Toprol 5 mg metoprolol twice daily. June,nxiety (ICD-10 - F41.9)Patient is doing well on Paxil 10 mg daily and he is to continue with this medication. June,creening for prostate cancer (ICD-10 - Z12.5) June,Urinary pain (ICD-10 - R30.9)Patient complains of urinary burning and left-sided flank pain for 6 to 8 months and is wondering if he is getting a reoccurrence of kidney stone. Urinalysis today does show trace leukocyte Estrace as well as a small amount of blood. He will have a KUB ordered and will also rule out a urinary tractinfection with urine culture. June,ther microscopic hematuria (ICD-10 - R31.29) [facility] Other 04-27-2022 Evaluation note* Encounter Date Diagnosis Assessment Notes Treatment Notes Treatment Clinical Notes May, Anxiety (ICD-10 - F41.9) [facility] Other 02-17-2022 Evaluation note* Encounter Date Diagnosis Assessment Notes Treatment Notes Treatment Clinical Notes Mar, Type 2 diabetes nahid itus with hyperglycemia, [...] will follow-up in 3 months for reassessment. Mar,Immunization due (ICD-10 - Z23) Patient due for pneumonia vaccine and this was given to him today. Mar,Hypertension (ICD-10 - I10) Blood pressures well controlled on metoprolol 25 mg one half tab twice daily. He is to continue with this medication. Mar,Mixed hyperlipidemia (ICD-10 - E78.2) Mar,Macrocytic anemia (ICD-10 - D53.9) Patient has a history of macrocytic anemia and he will have a vitamin B12 and folate level checked. [facility] Other 01-19-2022 Evaluation note* Encounter Date Diagnosis Assessment Notes Treatment Notes Treatment Clinical Notes Feb, Type 2 diabetes nahid itus with hyperglycemia, without long-term current use of insulin (ICD-10 - E11.65) [facility] Other 12-22-2021 Evaluation note* Encounter Date Diagnosis Assessment Notes Treatment Notes Treatment Clinical Notes Jan, Coronary artery dise ase involving kobuk coronary artery of kobuk heart without angina pectoris (ICD-10 - I25.10) Jan,OPD (chronic obstructive pulmonary disease) (ICD-10 - J44.9) Jan,nxiety (ICD-10 - F41.9) Jan,Hypertension (ICD-10 - I10) [facility] Other 11-05-2021 Evaluation note* Encounter Date Diagnosis Assessment Notes Treatment Notes Treatment Clinical Notes Dec, Hypertension (ICD-10 - I10) [facility] Other 11-01-2021 Evaluation note* Encounter Date Diagnosis Assessment Notes Treatment Notes Treatment Clinical Notes Dec, Spondylosis of lumbo sacral region without myelopathy or radiculopathy (ICD-10 - [...] with patient in regards to patients condition. Dec,umbar back pain (ICD-10 - M54.5) Dec,Other chronic pain (ICD-10 - G89.29) Dec,Intercostal pain (ICD-10 - R07.82) Patient is also voicing complaints of anterior left rib pain which he attributes to a recent fall. He denies any complaints of constant chest pain or pain with exertion. I will order an xray of the area for further evaluation. Dec,Thumb pain, right (ICD-10 - M79.644) Patient notes at the time of the fall he feels as though he may have injured his right thumb. I will order an xray of his right hand for further evaluation. Dec,OtherAbove note written by Abram Dover CMA, Machine Fitter. Edited and approved by Dr. Ricardo Ladd MD. [facility] Other 10-06-2021 Evaluation note* Encounter Date Diagnosis Assessment Notes Treatment Notes Treatment Clinical Notes Nov, Anxiety (ICD-10 - F41.9) [facility] Other 10-06-2021 Evaluation note* Encounter Date Diagnosis Assessment Notes Treatment Notes Treatment Clinical Notes Nov, Type 2 diabetes nahid itus with hyperglycemia, without long-term current use of insulin (ICD-10 - E11.65) Patient's diabetes is still well controlled however his A1c did elevate compared to what it was previously and it is now back to where it was around February of this year. I encourage patient to watchhis diet and I suspect that this would [...] to stay on his current medication regimen. Nov,nxiety (ICD-10 - F41.9) Patient states his anxiety is extremely well controlled with Paxil 10 mg daily and he will continuewith this medicine. Nov,rectile dysfunction, unspecified erectile dysfunction type (ICD-10 - N52.9) Patient would like to try medication for erectile dysfunction and we discussed different options. He is going to be tried on Cialis 20 mg. [facility] Other Evaluation noteNo InformationNosaint john's regional health center [employer] Other Evaluation note* Diagnosis Onset Date Resolution Status Acute coronary syndrome acuteChest painacuteCHF exacerbationacuteMacrocytic anemiaacuteAnxietychronic COPD (chronic obstructive pulmonary disease)chronic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chronicHTN (hypertension)chronicMixed hyperlipidemiachronicObstructive sleep [id number] [facility] Work Phone: Evaluation note* Diagnosis Generalized weakness- Primary Other malaise and fatigue Acute cystitis with hematuria Acute cystitis Kidney stone Calculus of kidney Recurrent left pleural effusion Unspecified pleural effusion Anemia requiring transfusions Anemia, unspecified Hypomagnesemia Disorders of magnesium metabolism Hypokalemia Hypopotassemia T12 compression fracture, sequela S/P TAVR (transcatheter aortic valve replacement) Chronic diastolic congestive heart failure (HCC) Chronic diastolic heart failure Chronic respiratory failure with hypoxia Chronic respiratory failure Essential hypertension, benign AAA (abdominal aortic aneurysm) (HCC) Abdominal aneurysm without mention of rupture Electrolyte imbalance Electrolyte and fluid disorders not elsewhere classified Megaloblastic anemia Unspecified deficiency anemia S/P TAVR (transcatheter aortic valve replacement) Hypokalemia Hypopotassemia Hypomagnesemia Disorders of magnesium metabolism Obstructive sleep apnea (adult) (pediatric) COPD (chronic obstructive pulmonary disease) (HCC) Chronic airway obstruction, not elsewhere classified Anemia requiring transfusions Anemia, unspecified Acute cystitis with hematuria Acute cystitis Kidney stone Calculus of kidney documented in this encounter [facility] Diagnosis Acute renal failure (ARF) ([facility])- Primary Acute kidney failure, unspecified Acute renal failure, unspecified acute renal failure type ([facility]) Gross hematuria Staghorn calculus Calculus of kidney Major depressive disorder Major depressive disorder, single episode, unspecified Spondylosis of lumbosacral region without myelopathy or radiculopathy History of myocardial infarction Pathological fracture of thoracic vertebra with delayed healing Intractable back pain 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 Chronic diastolic congestive heart failure ([facility]) Vitamin D deficiency Age-related osteoporosis with current pathological fracture documented in this encounter [facility] SystemEvaluation [facility]* Diagnosis Acute on chronic congestive heart failure, unspecified heart failure type ([facility])- Primary Acute on chronic congestive heart failure, unspecified heart failure type ([facility]) Dyspnea on exertion Other dyspnea and respiratory abnormality On potassium wasting diuretic therapy Anxiety disorder Anxiety state, unspecified Benign essential hypertension Essential hypertension, benign Chronic diastolic congestive heart failure ([facility]) Chronic respiratory failure with hypoxia ([facility]) Dyslipidemia Other and unspecified hyperlipidemia 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 Gastroesophageal reflux disease without esophagitis Esophageal reflux Obstructive sleep apnea syndrome Obstructive sleep apnea (adult) (pediatric) Type 2 diabetes mellitus with hyperglycemia, without long-term current use of insulin ([facility]) Pleural effusion, left Unspecified pleural effusion documented in this encounter [facility] SystemEvaluation [facility]* Diagnosis Shock ([facility])- Primary Unspecified shock Shock ([facility]) Unspecified shock Acute kidney injury ([facility]) documented in this encounter [facility] SystemEvaluation note* Diagnosis CRISTINE (acute kidney injury) ([facility])- Primary Chronic diastolic congestive heart failure ([facility]) documented in this encounter [facility] SystemEvaluation note* Diagnosis T12 compression fracture ([facility] Primary Benign essential hypertension Essential hypertension, benign Chronic diastolic congestive heart failure ([facility]) COPD (chronic obstructive pulmonary disease) ([facility]) Chronic airway obstruction, not elsewhere classified Dyslipidemia Other and unspecified hyperlipidemia Type 2 diabetes mellitus with hyperglycemia, without long-term current use of insulin ([facility]) documented in this encounter [facility] SystemEvaluation note* Diagnosis Severe aortic stenosis- Primary Aortic valve disorders Severe aortic stenosis Aortic valve disorders documented in this encounter [facility] SystemEvaluation note* Diagnosis Compression fracture of T12 vertebra, initial encounter ([facility]) documented in this encounter [facility] SystemEvaluation note* Diagnosis Hematuria- Primary Hematuria, unspecified Gross hematuria [facility] N[facility]ative - Reported* Type Description Date Medical History HTN Medical HistoryCOPDMedical HistoryCADMedical HistoryCHFMedical HistoryOSA Surgical HistoryherniaSurgical HistoryaneurysmSurgical HistoryLeft rotator cuff surgery10/21/18Surgical [id number] Historyas above [facility] Other Hospital Discharge instructions* Attachments The following attachments cannot be sent through Care Everywhere. * Heart Failure Discharge Instructions, Adult (Finnish) [facility] encounter[facility] Discharge instructionsNot on filedocumented in this encounterOhioHealth [facility] Hospital Discharge instructions* Attachments The following attachments cannot be sent through Care Everywhere. * Blood Transfusions: General Info (Finnish) * Hematuria (Finnish) documented in this encounterBon [facility] ShawInstructionsNot on file documented [facility] SystemInstructionsNot on file documented in this [facility] SystemInstructionsNot on file documented in this [facility] SystemInstructionsNot on file documented in this encounterPro[facility] SystemInstructionsNot on file documented in this encounterProUniversity [facility] SystemInstructionsNot on file documented in this [facility] SystemInstructionsNot on file documented in this encounterProUniversity [facility] SystemInstructionsNot on file documented in this encounterProUniversity [facility] SystemInstructionsNot on file documented in this [facility] SystemInstructionsNot on file documented in this encounter[facility] SystemInstructionsNot on file documented in this [facility] SystemInstructionsNot on file documented in this [facility] SystemInstructionsNot on file documented in this [facility] SystemReason for referral (narrative)* Misc (Routine) - Pending ReviewSpecialtyDiagnoses / Procedures Referred By ContactReferred To Contact Procedures Adult Drew Stover MD [address] [facility] [place] [address] Phone: tel: fax: Referral IDStatusReasonStart DateExpiration DateVisits RequestedVisits [id number] Review/ * Misc (Routine) - Pending ReviewSpecialtyDiagnoses / ProceduresReferred By ContactReferred To Contact Procedures Discharge Follow-Up Piero Dumont Jr., MD [address], [address] [place] [address] Phone: tel: fax: Referral IDStatusReasonStart DateExpiration DateVisits RequestedVisits [id number] Review/ [facility] CenterReason for visit Narrative* Auth/Cert (Routine)Specialty Diagnoses / ProceduresReferred By ContactReferred To Contact Diagnoses Acute renal failure (ARF) ([facility]) acute renal failure Lou Medrano MD [address] [place] [address] Phone: tel: fax: Referral IDStatusReasonStlakeport DateExpiration DateVisits RequestedVisits [id number] [facility] Summary Purpose Family History No Family History Records Found Relationship Condition Age at Onset Recorded Date/T davon father Diabetes mellitus Unknown Heart diseaseUnknownbrotherHeart diseaseUnknownDiabetes mellitusUnknownNot SpecifiedHeart diseaseUnknownbrotherDiabetes mellitusUnknownDeceasedUnknown sisterDiabetes mellitusUnknown Advance Directives No Advanced Directives Records Found Advance Directive Response Recorded Date/ Time Advance Directives Yes July 04 3:33pm TypeDate RecordedPatient RepresentativeExplanationACP-Do Not Resuscitate 02/08/2024 1:11 PMDNR-CCA 02/08/2024ate ActivatedDate InactivatedComments 02/08/2024 11:11 AMDate ActivatedDate LysppqfiywhTohiczvv30/17/2024 4:14 PM 02/08/2024 11:10 AMNameRelationshipHealthcare Agent RelationshipCommunicationBob BisignanoBrother/SisterSecondary Decision Maker* Alex JonesanoChildPrimary Decision Maker* TypeDate RecordedPatient RepresentativeExplanationDurable Power of Gericare Aide 10/20/2023 12:09 PMDurable Power of Attorney07/23/2023 5:40 PMDPOA [id number] ActivatedDate XmezrqxwfdsSgnpsdty03/25/2024 6:43 AM01/20/2024 2:25 PMDate ActivatedDate HsgazpoydgsZdmqpydt29/1/2024 4:58 AM11/30/2023 7:16 PMDate ActivatedDate InactivatedComments10/26/2023 2:41 AM10/31/2023 6:34 PMDate Activated Date InactivatedComments10/20/2023 9:00 AM10/26/2023 1:20 AMDate ActivatedDate InactivatedComments10/05/2023 2:43 PM10/12/2023 6:22 PMDate ActivatedDate InactivatedComments03/09/2024 6:22 AMDate ActivatedDate InactivatedComments 01/16/2024 6:43 AM01/20/2024 2:25 PMDate ActivatedDate InactivatedComments 11/22/2023 4:58 AM11/30/2023 7:16 PMDate ActivatedDate InactivatedComments10/26/2023 2:41 AM10/31/2023 6:34 PMDate ActivatedDate InactivatedComments10/20/2023 9:00 AM 10/26/2023 1:20 AMTypeDate RecordedPatient RepresentativeExplanationDurable Power of Attorney10/20/2023 12:09 PMDurable Power of Attorney07/23/2023 5:40 PMDPOA [id number] ActivatedDate InactivatedComments03/09/2024 6:22 AMDate Activated Date BejzrhxbujiSyltzsbf60/25/2024 6:43 AM01/20/2024 2:25 PMDate ActivatedDate CyblonivgrxUsxqokdb49/1/2024 4:58 AM11/30/2023 7:16 PMDate ActivatedDate InactivatedComments10/26/2023 2:41 AM10/31/2023 6:34 PMDate ActivatedDate InactivatedComments10/20/2023 9:00 AM10/26/2023 1:20 AMTypeDate RecordedPatient RepresentativeExplanationDurable Power of Attorney07/23/2023 5:40 PMDPOA 07-23-23 Date ActivatedDate InactivatedComments07/23/2023 6:04 AM07/28/2023 12:45 PMTypeDate RecordedPatient RepresentativeExplanationDurable Power of Attorney07/23/2023 5:40 PMDPOA [id number] ActivatedDate InactivatedComments09/08/2023 1:26 PMDate ActivatedDate InactivatedComments07/23/2023 6:04 AM07/28/2023 12:45 PMDate Activated Date InactivatedComments10/05/2023 2:43 PM10/12/2023 6:22 PMDate ActivatedDate InactivatedComments10/05/2023 4:28 AM10/05/2023 10:54 AMDate ActivatedDate InactivatedComments09/21/2023 11:29 AM09/23/2023 2:44 PMDate ActivatedDate InactivatedComments09/08/2023 1:26 PM09/11/2023 4:19 PMDate ActivatedDate InactivatedComments07/23/2023 6:04 AM07/28/2023 12:45 PMDate ActivatedDate KnonevqqpwwJikkbsnv14/1/2024 4:58 AMDate ActivatedDate InactivatedComments 10/26/2023 2:41 AM10/31/2023 6:34 PMDate ActivatedDate InactivatedComments10/20/2023 9:00 AM10/26/2023 1:20 AMDate ActivatedDate InactivatedComments10/05/2023 2:43 PM 10/12/2023 6:22 PMDate ActivatedDate InactivatedComments10/05/2023 4:28 AM 10/05/2023 10:54 AMDate ActivatedDate InactivatedComments10/20/2023 9:00 AMDate ActivatedDate InactivatedComments10/05/2023 2:43 PM10/12/2023 6:22 PMDate ActivatedDate InactivatedComments10/05/2023 4:28 AM10/05/2023 10:54 AMDate ActivatedDate InactivatedComments09/21/2023 11:29 AM09/23/2023 2:44 PMDate ActivatedDate InactivatedComments09/08/2023 1:26 PM09/11/2023 4:19 PMDate ActivatedDate InactivatedComments10/26/2023 2:41 AMDate ActivatedDate Inactivated Comments10/20/2023 9:00 AM10/26/2023 1:20 AMDate ActivatedDate InactivatedComments 10/05/2023 2:43 PM10/12/2023 6:22 PMDate ActivatedDate InactivatedComments 10/05/2023 4:28 AM10/05/2023 10:54 AMDate ActivatedDate InactivatedComments 09/21/2023 11:29 AM09/23/2023 2:44 PMDate ActivatedDate InactivatedComments 11/22/2023 4:58 AMDate ActivatedDate InactivatedComments10/26/2023 2:41 AM10/31/2023 6:34 PMDate ActivatedDate InactivatedComments10/20/2023 9:00 AM10/26/2023 1:20 AM Date ActivatedDate InactivatedComments10/05/2023 2:43 PM10/12/2023 6:22 PMDate ActivatedDate InactivatedComments10/05/2023 4:28 AM10/05/2023 10:54 AMDate ActivatedDate InactivatedComments10/26/2023 2:41 AM10/31/2023 6:34 PMDate Activated Date HpusyeaefbsPcgywozq25/1/2024 4:58 AM11/30/2023 7:16 PMDate ActivatedDate InactivatedComments05/06/2024 8:28 AMDate ActivatedDate InactivatedComments 03/09/2024 6:22 AM2024 3:46 PMDate ActivatedDate InactivatedComments 01/16/2024 6:43 AM01/20/2024 2:25 PMDate ActivatedDate InactivatedComments 11/22/2023 4:58 AM11/30/2023 7:16 PMDate ActivatedDate InactivatedComments10/26/2023 2:41 AM10/31/2023 6:34 PMDate ActivatedDate InactivatedComments05/11/2024 4:00 AM 05/12/2024 6:34 PMDate ActivatedDate InactivatedComments05/06/2024 8:28 AM 05/11/2024 2:29 AMDate ActivatedDate InactivatedComments03/09/2024 6:22 AM 2024 3:46 PMDate ActivatedDate GqdhztugvkuEkgltagr39/25/2024 6:43 AM 01/20/2024 2:25 PMDate ActivatedDate VpgrphtzpmqDdinzvbw75/1/2024 4:58 AM 11/30/2023 7:16 PMTypeDate RecordedPatient RepresentativeExplanationACP-Do Not Fnnpiaxikkj32/18/2024 1:11 PMDNR-CCA 02/08/2024ate ActivatedDate Inactivated Comments11/14/2024 12:55 AMDate ActivatedDate YizrgfkabxgKzvhlopk34/18/2024 11:11 AM02/10/2024 1:46 PMDate ActivatedDate AtwrjeyhncgVjmlkwuh91/17/2024 4:14 PM 02/08/2024 11:10 AMNameRelationshipHealthcare Agent RelationshipCommunicationBob BisignanoBrother/SisterSecondary Decision Maker* * * One NoChildPrimary Decision Maker Reason for Referral SpecialtyDiagnoses / ProceduresReferred By ContactReferred To Contact Diagnoses Severe aortic stenosis Procedures [facility] (Structural Heart) Sally Salazar, PA [address] [address] Referral IDStatusReasonStart DateExpiration DateVisits RequestedVisits [id number] [id number] / ProceduresReferred By ContactReferred To Contact Procedures Discharge Follow-Up Maggie Cruz, PER DIEM PHYSICAL THERAPIST ASSISTANT-RN REFERRAL [address], [address] [address] Referral IDStatusReasonStart DateExpiration DateVisits RequestedVisits [id number] [id number] / ProceduresReferred By ContactReferred To Contact Diagnoses Acute on chronic congestive heart failure, unspecified heart failure type ([facility]) Procedures Follow-up with primary care provider Maggie Cruz, PER DIEM PHYSICAL THERAPIST ASSISTANT-RN REFERRAL [address], [place] [address] Referral IDStatusReasonStart DateExpiration DateVisits RequestedVisits [id number] Review/[id number] / ProceduresReferred By ContactReferred To Contact Procedures Adult diet Maggie Cruz, PER DIEM PHYSICAL THERAPIST ASSISTANT-RN REFERRAL [address], [facility] [address] [place] [address] Referral IDStatusReasonStart DateExpiration DateVisits RequestedVisits [id number] [id number] / ProceduresReferred By ContactReferred To [facility] Diagnoses T12 compression fracture, sequela Enrrique-Lauren, Kelsie Ramos, PER DIEM PHYSICAL THERAPIST ASSISTANT - RN REFERRAL [address] [place] [address] Referral IDStatusReasonStart DateExpiration DateVisits RequestedVisits [id number] Specialty Services Required /[id number] Reason For External Referral? Patient Preference I certify that I, or a nurse practitioner or physician assistant plant control operator working with me, had an in-person encounter with the patient and the reason for the home care services is documented in the clinical note on: 02/10/2024 Will the referring provider be the attending provider for home health? [place] of attending provider for home health Derek Taylor CNP The patient is confined to home: Due to a condition where leaving their home is medically contraindicated, AND there is a normal inability to leave home, AND leaving home requires a considerable and taxing effort Patient requires the following home health services [facility], Physical Therapy, Occupational Therapy, Home Health Aide Comments Certification and medical necessity: I certify that, based on my findings, the following services are medically necessary home health services for Brian Mandel for the following reasons: - Consult Physical Therapy for Evaluate and Treat - Consult Occupational Therapy for Evaluate and Treat - Consult Home Health Aid for assistance with Activities of Daily Living - Nursing to assess further needs Reason * FU 10/[address] Ladd and was getting back injections, refer to Dr. 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) Referral Organization [facility] Luther Referring Provider First Name Melanie Referring Provider Last Name Claudia Referring Provider Specialty [facility] mata Referred Organization [facility] Referred Provider Mike Andino Referred Address [address] [place] [id number] Referred Provider Specialty Pain Medicin e Referral Priority Routine General Notes Robyn Stacy 01:34:20 PM >referral received and faxed Clinical Notes [phone] Reason Chronic back pain Diagnosis 1 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) Referral Organization [facility] Luther Referring Provider First Name Melanie Referring Provider Last Name Claudia Referring Provider [facility] Referred Organization Unknown Facility Referred Provider Specialty Pain Medicin e Referral Priority Routine General Notes Melanie Taylor 01:48:27 PM > Printed referral for patient to take with him Chief Complaint and Reason for Visit Chief Complaint Amb Documentation Chest Pain Chest Pain Chest PainReason for VisitAcute coronary syndrome Chest pain CHF exacerbation Macrocytic anemia Anxiety COPD (chronic obstructive pulmonary disease) 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 HTN (hypertension) Mixed hyperlipidemia Obstructive sleep apnea [id number] Additional Source Comments (unrecognized sect ion and content) No Status Records FoundNo Status Records FoundNo Status Records FoundNo Status Records FoundNo Status Records FoundNo Status Records FoundNo Status Records FoundNo Status Records FoundNo Status Records FoundNo Status Records FoundNo Status Records FoundNo Status Records Found INFORMATION SOURCE (unrecogn ized section and content) DATE CREATED AUTHOR 05/11/2018 [facility] DATE CREATED AUTHOR AUTHOR'S ORGANIZ ATION 08/16/2020 [facility] DATE CREATED AUTHOR AUTHOR'S ORGANIZ ATION 10/26/2023 [facility] DATE CREATED AUTHOR AUTHOR'S ORGANIZ ATION 10/27/2023 [facility] DATE CREATED AUTHOR AUTHOR'S ORGANIZ ATION 11/10/2023 [facility] DATE CREATED AUTHOR AUTHOR'S ORGANIZ ATION 02/19/2024 [facility] DATE CREATED AUTHOR AUTHOR'S ORGANIZ ATION 06/11/2024 [facility] DATE CREATED AUTHOR AUTHOR'S ORGANIZ ATION 07/03/2024 [facility] DATE CREATED AUTHOR AUTHOR'S ORGANIZ ATION 07/08/2024 [facility] DATE CREATED AUTHOR AUTHOR'S ORGANIZ ATION 08/19/2024 [facility] DATE CREATED AUTHOR AUTHOR'S ORGANIZ ATION 11/23/2024 [facility] DATE CREATED AUTHOR AUTHOR'S ORGANIZ ATION 12/03/2024 [facility] REASON FOR VISIT (unrecogniz ed section and content) ReasonCommentsBack PainChronic mid back pain ongoing for approx. 3 years. Reports pain worsening the last couple days causing difficulty walking. States has no medications for pain. Was seen at [facility] on Tuesday for same symptoms. Also has known kidney stones causing increased back pain.SpecialtyDiagnoses / ProceduresReferred By ContactReferred To Contact Diagnoses Hypokalemia Hypomagnesemia Kidney stone Generalized weakness Acute cystitis with hematuria Anemia requiring transfusions Recurrent left pleural effusion T12 compression fracture, sequela Luz Ivory MD [address] [place] [address] [facility] [address] [place] [address] Referral IDStatusReasonStart DateExpiration DateVisits RequestedVisits [id number] of BreathSpecialtyDiagnoses / ProceduresReferred By ContactReferred To Contact Diagnoses SOB (shortness of breath) Dyspnea on exertion Acute on chronic congestive heart failure, unspecified heart failure type ([facility]) Julia Man MD [address] , [facility] [address] [place] [address] Referral IDStatusReasonStart DateExpiration DateVisits RequestedVisits [id number] of BreathSpecialtyDiagnoses / ProceduresReferred By ContactReferred To Contact Diagnoses Shock ([facility]) Hypotension Acute kidney injury ([facility]) Gopal Mccarthy MD [address] [address] Referral IDStatusReasonStart DateExpiration DateVisits RequestedVisits [id number] DateCommentsNew Easosft7311/22/2023Specialty Diagnoses / ProceduresReferred By ContactReferred To Contact Diagnoses T12 compression fracture ([facility]) T 12 compression fracture Julia Man MD [address] , [facility] [address] [place] [address] Referral IDStatusReasonStart DateExpiration DateVisits RequestedVisits [id number] BzwyZujxxzcbAruquy02/02/2024Thrombocytotenia 4ReasonOnset DateCommentsaortic ctxyvezc42/04/2024possible THIERRY 4ReasonOnset DateCommentsOrder Gzledsmitwncz24/06/2024ReasonCommentsMed RefillReasonOnset DateCommentsmissed lsqgyvwvdwp80/17/2024ReasonOnset Date Yhryfrgnecly74/13/2024ReasonCommentsGroin PainSpecialtyDiagnoses / Procedures Referred By ContactReferred To Contact Diagnoses Skyler Berumen MD [address] [address] Phone: tel: fax: [facility] [address] [place] [address] Referral IDStatusReasonStart DateExpiration DateVisits RequestedVisits [id number] Care Teams (unrecognized sec tion and content) Team Status: Active Member Role Status Dates ADOLFO Rodriguez Panel Monitor Active Melanie Taylor , Daniel Care ProviderActive Team Status: Active Member Role Status Dates Melanie Taylor , DO Primary Care Provider Active Start: May 10, 2023 Carson Doherty , MAYNAttenmazin ProviderActiveStart: May 10, 2023 Team Status: Inactive Member Role Status Dates Melanie Taylor , DO Primary Care Provi julian, Admit Provider, Attending Provider Active Start: July 18, 2023 End: July 21, 2023Harjidner Gibbons II, DOOther ProviderActiveStart: July 18, 2023 End: July 21, 2023 Team Status: Active Member Role Status Dates Melanie Taylor , DO Primary Care Provi julian, Admit Provider, Other Provider Active Start: July 18, 2023 Juju Shah RNOther ProviderActiveStart: July 18, 2023 Farhan Bolton ProviderActiveStart: July 18, 2023 Julio Cesar Mccormick MDOther ProviderActiveStart: July 18, 2023 Zakia Butcher MDAttending Provider, Other ProviderActiveStart: July 18, 2023 Team Status: Active Member Role Status Dates Melanie Taylro , DO Primary Care Provi julian, Admit Provider, Attending Provider, Other Provider Active Start: July 19, 2023 Juju Shah RNOther ProviderActiveStart: July 19, 2023 Christian Dickerson MDOther ProviderActiveStart: July 19, 2023 Julio Cesar Mccormick MDOther ProviderActiveStart: July 19, 2023 Farhan Laura ProviderActiveStart: July 19, 2023 Team MemberRelationshipSpecialtyStart DateEnd Date Melanie Taylor DO [address] [place] [address] PCP - GeneralFamsly Wdaefzuy67/17/24Team MemberRelationshipSpecialtyStart Date End Date Melanie Taylor, DO PCP - GeneralFamily Zhuhpzfd61/18/24Team MemberRelationshipSpecialtyStart Date End Date No Pcp, [place] [address] PCP - GeneralFamily Medicine03/08/24Team MemberRelationshipSpecialtyStart DateEnd Date No Pcp, [place] [address] PCP - GeneralFamily Medicine03/08/24Team MemberRelationshipSpecialtyStart DateEnd Date No Pcp, [place] [address] PCP - GeneralFamily Medicine08/06/23Team MemberRelationshipSpecialtyStart DateEnd Date Melanie Taylor, DO [address] [place] [address] PCP - GeneralFamily Medicine09/08/23Team MemberRelationshipSpecialtyStart DateEnd Date Melanie Taylor DO [address] [place] [address] PCP - GeneralFamily Medicine09/08/23Team MemberRelationshipSpecialtyStart DateEnd Date Melanie Taylor DO PCP - GeneralFamily Medicine09/21/23Team MemberRelationshipSpecialtyStart DateEnd Date Melanie Taylor DO PCP - GeneralFamily Medicine09/21/23Team MemberRelationshipSpecialtyStart DateEnd Date Melanie Taylor DO PCP - GeneralFamily Medicine09/21/23Team MemberRelationshipSpecialtyStart DateEnd Date Melanie Taylor, DO PCP - [facility]09/21/23Team MemberRelationshipSpecialtyStart DateEnd Date Melanie Taylor, DO PCP - [facility]09/21/23Team MemberRelationshipSpecialtyStart DateEnd Date Melanie Taylor, DO PCP - [facility]09/21/23Team MemberRelationshipSpecialtyStart DateEnd Date Melanie Taylor, DO PCP - [facility]09/21/23Team MemberRelationshipSpecialtyStart DateEnd Date Melanie Taylor, DO PCP - [facility]09/21/23Team MemberRelationshipSpecialtyStart DateEnd Date Melanie Taylor, DO PCP - [facility]09/21/23Team MemberRelationshipSpecialtyStart DateEnd Date Melanie Taylor, DO PCP - [facility]09/21/23Team MemberRelationshipSpecialtyStart DateEnd Date Melanie [facility], [facility]23Team MemberRelationshipSpecialtyStart Date End Date Melanie Taylor, DO PCP - GeneralFamily Klhfctyc69/18/24Team MemberRelationshipSpecialtyStart Date End Date No Pcp, [place] [address] PCP - GeneralFamily Medicine03/08/24Team MemberRelationshipSpecialtyStart DateEnd Date No Pcp, [place] [address] PCP - GeneralFamily Medicine03/08/24Team MemberRelationshipSpecialtyStart DateEnd Date Melanie Taylor, DO [address] [place] [address] PCP - GeneralFamily Xkanjpcb71/17/24 Ordered Prescriptions (unrec ognized section and content) PrescriptionSigDispensedRefillsStart DateEnd Date levoFLOXacin (LEVAQUIN) 500 MG tablet Take 1 tablet by mouth daily for 7 days 7 tablet / dexAMETHasone (DECADRON) 6 MG tablet Take 1 tablet by mouth daily for 2 doses 2 tablet / oxyCODONE (ROXICODONE) 5 MG immediate release tablet Indications:T12 compression fracture, sequelaTake 1 tablet by mouth every 4 hours as needed for Pain for up to 3 days. Max Daily Amount: 30 mg 12 tablet / Scheduled Active and Recently Administ ered Medications (unrecognized section and content) Medication Order/ atorvastatin (LIPITOR) tablet 20 mg 20 mg, Oral, DAILY, First dose on Tue02/07/24 at 1700, Until Discontinued, Substituted for Simvastatin (ZOCOR). * 0833 (Given - Provider: Henna Valera RN) * 0812 (Given - Provider: Kianna Cornejo RN) * 1013 (Given - Provider: Kaiden Stack RN) calcium gluconate 2,000 mg in sodium chloride 100 mL (COMPLETED) 2,000 mg, IntraVENous, at 50 mL/hr, Administer over 120 Minutes, ONCE, On Tue02/08/24 at 1000, For1 dose * 1029 (New Bag - Provider: Henna Valera RN) * 1233 (Stopped - Provider: Henna Valera RN) cefTRIAXone (ROCEPHIN) 1,000 mg in sterile water 10 mL IV syringe 1,000 mg, IntraVENous, EVERY 24 HOURS, First dose on Tue02/08/24 at 1400, For 7 days, Administer as slow IV Push over 5 mins Reconstitute 1 g vials with 9.6 mL of designated diluent to produce a 100mg/mL solution. * 1351 (Given - Provider: Henna Valera RN) * 1413 (Given - Provider: Kianna Cornejo RN) * 1400 (Due) dexAMETHasone (DECADRON) tablet 6 mg 6 mg, Oral, DAILY, 5 doses, First dose on Tue02/07/24 at 1630, Last dose on Tue02/11/24 at 0900 * 0832 (Given - Provider: Henna Valera RN) * 0811 (Given - Provider: Kianna Cornejo RN) * 1013 (Given - Provider: Kaiden Stack RN) famotidine (PEPCID) tablet 20 mg (CANCELED) 20 mg, Oral, 2 TIMES DAILY, First dose on Tue02/07/24 at 2100, Until Discontinued * 0833 (Given - Provider: Henna Valera RN) famotidine (PEPCID) tablet 20 mg 20 mg, Oral, DAILY, First dose (after last modification) on Tue02/09/24 at 0900, Until Discontinued * 0812 (Given - Provider: Kianna Cornejo RN) * 1013 (Given - Provider: Kaiden Stack RN) FLUoxetine (PROZAC) capsule 20 mg 20 mg, Oral, DAILY, First dose on Tue02/07/24 at 1700, Until Discontinued * 0833 (Given - Provider: Henna Valera RN) * 0812 (Given - Provider: Kianna Cornejo RN) * 1013 (Given - Provider: Kaiden Stack RN) metoprolol succinate (TOPROL XL) extended release tablet 12.5 mg 12.5 mg, Oral, 2 TIMES DAILY, First dose on Tue02/07/24 at 2100, Until Discontinued * 0833 (Given - Provider: Henna Valera RN) * 1946 (Not Given - Provider: Charlene Johnson RN - Reason: Order parameters not met - Comment: BP has been running low as well as patient has been running [place]) * 0811 (Given - Provider: Kianna Cornejo, RN) * 2055 (Given - Provider: Jillian Alanis, RN) * 1013 (Given - Provider: Kaiden Stack, RN) * 2099 (Due) sodium chloride flush 0.9 % injection 10 mL 10 mL, IntraVENous, EVERY 12 HOURS SCHEDULED (2 times per day), First dose on Tue02/07/24 at 2100,Until Discontinued * 0834 (Not Given - Provider: Henna Valera RN - Reason: IV Fluid Infusing) * 2050 (Given - Provider: Charlene Johnson RN) * 08 (Given - Provider: Kianna Cornejo, BISHOP) * 2055 (Given - Provider: Jillian Alanis, BISHOP) * 101 (Given - Provider: Kaiden Stack, RN) * 2099 (Due) Medication Order//[id number]/ dextrose 5 % and 0.45 % NaCl with KCl 20 mEq infusion (CANCELED) IntraVENous, at 75 mL/hr, CONTINUOUS, Starting on Tue02/07/24 at 1630, For 24 hours, Complete lastbag that is running at 24 hours and then saline lock IV * 0100 (New Bag - Provider: Edward Banegas RN - Comment: Moved due to administration of 6 potassium 10meq needing to be given before starting continuous infusion) * 0924 (New Bag - Provider: Henna Valera RN) * 1023 (Rate/Dose Change - Provider: Henna Valera RN) * 1233 (Stopped - Provider: Henna Valera RN) Medication Order//[id number]/ 0.9 % sodium chloride infusion IntraVENous, at 240 mL/hr, Administer over 10 Minutes, PRN, blood administration, Starting on Tue02/07/24 at 1212, For 1 dose, For use in priming line prior to transfusion (prime via gravity) and flush line post transfusion ONLY. Discontinue once line has been cleared of remaining blood product. 0.9 % sodium chloride infusion IntraVENous, at 5-250 mL/hr, PRN, if patient receiving piggyback infusions and maintenance fluids are not ordered OR KVO fluids to protect IV site / prevent frequent line interruptions/ long duration, Starting on Tue02/07/24 at 1614, For piggyback infusion, administer at same rate as piggyback fora total of 25 mL. Enter 25 mL into dose field and piggyback rate into rate field of order. If piggyback is infusing at a rate less than 100 mL/hr, enter 25 mL into dose field and 100 mL/hr into rate field of order. For KVO fluids, enter rate of 20 mL/hr or less into rate field of order. acetaminophen (TYLENOL) suppository 650 mg(Linked Group 1) 650 mg, Rectal, EVERY 6 HOURS PRN, Starting on Tue02/07/24 at 1614, Until Discontinued, Pain Mild (1-3), Fever, For temp greater than 100.4 F (38 C), Administer if oral route cannot be used. acetaminophen (TYLENOL) tablet 650 mg(Linked Group 1) 650 mg, Oral, EVERY 6 HOURS PRN, Starting on Tue02/07/24 at 1614, Until Discontinued, Pain Mild (1-3), Fever, For temp greater than 100.4 F (38 C), Maximum dose of acetaminophen is 4000 mg from all sources in 24 hours. magnesium sulfate 2000 mg in 50 mL IVPB premix 2,000 mg, IntraVENous, at 25 mL/hr, Administer over 2 Hours, PRN, Other, Magnesium Replacement, Starting on Tue02/07/24 at 1614, Mag Lab Replacement Action 1.4-1.6 mg/dL 2,000 mg Total Dose Given as1,000 mg IVPB x 2 doses or 2,000 mg IVPB x 1 dose 1.0-1.3 mg/dL 4,000 mg Total Dose Given as 1,000 mg IVPB x 4 doses or 2,000 mg IVPB x 2 doses Less than 1.0 mg/dL CALL PHYSICIAN and give 4,000 mg Total Dose Given as 1,000 mg IVPB x 4 doses or 2,000 mg IVPB x 2 doses Infuse at 1,000 mg/hr Repeat Mag level 1 hour after final administration Protocol not for use in Patients with CrCl less than 30ml/min ondansetron (ZOFRAN) injection 4 mg(Linked Group 2) 4 mg, IntraVENous, EVERY 6 HOURS PRN, Starting on Tue02/07/24 at 1614, Until Discontinued, Nausea,Vomiting, Administer if oral route cannot be used. ondansetron (ZOFRAN-ODT) disintegrating tablet 4 mg(Linked Group 2) 4 mg, Oral, EVERY 8 HOURS PRN, Starting on Tue02/07/24 at 1614, Until Discontinued, Nausea, Vomiting oxyCODONE (ROXICODONE) immediate release tablet 5 mg 5 mg, Oral, EVERY 4 HOURS PRN, Starting on Tue02/07/24 at 1614, Until Discontinued, Pain Severe (7-10) * 0833 (Given - Provider: Henna Valera RN) * 1836 (Given - Provider: Charlene Johnson RN) * 1911 (Given - Provider: Jillian Alanis, BISHOP) * 0047 (Given - Provider: Jillian Alanis RN) polyethylene glycol (GLYCOLAX) packet 17 g 17 g, Oral, DAILY PRN, Starting on Tue02/07/24 at 1614, Until Discontinued, Constipation, First line therapy for constipation sodium chloride flush 0.9 % injection 10 mL 10 mL, IntraVENous, PRN, Starting on Tue02/07/24 at 1614, Until Discontinued, Line Care, After every IV line use Order Group 1: acetaminophen (TYLENOL) tablet 650 mgJump to med 650 mg, Oral, EVERY 6 HOURS PRN, Starting on Tue02/07/24 at 1614, Until Discontinued, Pain Mild (1-3), Fever, For temp greater than 100.4 F (38 C), Maximum dose of acetaminophen is 4000 mg from all sources in 24 hours. Or acetaminophen (TYLENOL) suppository 650 mgJump to med 650 mg, Rectal, EVERY 6 HOURS PRN, Starting on Tue02/07/24 at 1614, Until Discontinued, Pain Mild (1-3), Fever, For temp greater than 100.4 F (38 C), Administer if oral route cannot be used. Group 2: ondansetron (ZOFRAN-ODT) disintegrating tablet 4 mgJump to med 4 mg, Oral, EVERY 8 HOURS PRN, Starting on Tue02/07/24 at 1614, Until Discontinued, Nausea, Vomiting Or ondansetron (ZOFRAN) injection 4 mgJump to med 4 mg, IntraVENous, EVERY 6 HOURS PRN, Starting on Tue02/07/24 at 1614, Until Discontinued, Nausea,Vomiting, Administer if oral route cannot be used. Medication Order03/16// amoxicillin-pot clavulanate (AUGMENTIN) 875-125 mg per tablet 1 tablet 1 tablet, oral, Every 12 hours scheduled, First dose on Tue03/15/24 at 0900, Indication: UTI * 0835 (Given - Provider: Micky Anderson, BISHOP) * 1324 (MAR Hold - Provider: User Epic - Reason: Patient not available) * 1644 (MAR Unhold - Provider: User Epic) * 2229 (Given - Provider: Daphne Mendoza RN) * 0918 (Given - Provider: Micky Anderson RN) * 2126 (Given - Provider: Vangie Dorantes RN) * 0821 (Given - Provider: Micky Anderson RN) * 2100 (Due) atorvastatin (LIPITOR) tablet 20 mg 20 mg, oral, Nightly, First dose on Tue03/13/24 at 2200, Look-alike/sound-alike medication - verifyindication for use. * 1324 (MAR Hold - Provider: User Epic - Reason: Patient not available) * 1644 (MAR Unhold - Provider: User Epic) * 210 (Given - Provider: Daphne Mendoza RN) * 212 (Given - Provider: Vangie Dorantes, BISHOP) * 2200 (Due) cholecalciferol (vitamin D3) (VITAMIN D3) capsule 5,000 Units 5,000 Units, oral, Daily, First dose on Tue03/17/24 at 1100 * 1307 (Given - Provider: Rhys Grey RN) * 0821 (Given - Provider: Micky Anderson RN) cyanocobalamin tablet 500 mcg 500 mcg, oral, Daily, First dose on Tue03/13/24 at 1830 * 0835 (Given - Provider: Micky Anderson RN) * 1324 (MAR Hold - Provider: User Epic - Reason: Patient not available) * 1644 (MAR Unhold - Provider: User Epic) * 0917 (Given - Provider: Micky Anderson, BISHOP) * 0821 (Given - Provider: Micky Anderson RN) ergocalciferol (DRISDOL) capsule 50,000 Units 50,000 Units, oral, Weekly, First dose on Tue03/17/24 at 1100 * 1308 (Given - Provider: Rhys Grey, BISHOP) furosemide (LASIX) tablet 20 mg 20 mg, oral, 2 times daily before meals, First dose on Tue03/13/24 at 1830, Look-alike/sound-alike medication - verify indication for use. * 0623 (Given - Provider: Daphne Mendoza RN) * 1324 (APR Hold - Provider: User Epic - Reason: Patient not available) * 1600 (Dose Auto Held - Provider: User Epic) * 1644 (APR Unhold - Provider: User Epic) * 1652 (Given - Provider: Micky Anderson RN) * 0517 (Given - Provider: Daphne Mendoza RN) * 1531 (Given - Provider: Rhys Grey, BISHOP) * 0617 (Given - Provider: Vangie Dorantes RN) * 1600 (Due) insulin lispro (HumaLOG) injection 2-10 Units 2-10 Units, subcutaneous, 4 times daily with meals and nightly, First dose (after last modification) on Tue03/14/24 at 2015, Daytime hyperglycemia dosing. For blood glucose 151-200 mg/dL, give 2 units. For blood glucose 201-250 mg/dL, give 4 units. For blood glucose 251-300 mg/dL, give 6 units. Forblood glucose 301-350 mg/dL, give 8 units. For blood glucose 351-400 mg/dL, give 10 units. Give even if NPO or meals skipped. Do NOT give more often then every 4 hours when NPO. Notify prescriber if blood glucose greater than 400 mg/dL. Look-alike/sound-alike medication - verify indication for use.Prime with 2 units of insulin prior to administration. Prandial/supplemental Insulin. Pre-filled pens stable 28 days at room temperature. Insulin lispro should be administered within 15 minutes before or immediately after a meal. * 0800 (Not Given - Provider: Micky Anderson RN - Reason: Order parameters not met - Comment: 93) * 1200 (Not Given - Provider: Micky Anderson RN - Reason: Order parameters not met) * 1324 (MAR Hold - Provider: User Epic - Reason: Patient not available) * 1644 (MAR Unhold - Provider: User Epic) * 1700 (Not Given - Provider: Micky Anderson RN - Reason: Order parameters not met - Comment: 116) * 2106 (Given - Provider: Daphne Mendoza RN) * 0800 (Not Given - Provider: Micky Anderson RN - Reason: Order parameters not met - Comment: 139) * 1124 (Given - Provider: Micky Anderson RN) * 1700 (Not Given - Provider: Rhys Grey RN - Reason: Order parameters not met) * 2147 (Given - Provider: Vangie Dorantes RN - Comment: 207 BS) * 0800 (Not Given - Provider: Micky Anderson RN - Reason: Order parameters not met - Comment: 103) * 1200 (Not Given - Provider: Micky Anderson RN - Reason: Patient/family refused) * 1700 (Due) * 2200 (Due) melatonin (CIRCADIN) tablet 3 mg 3 mg, oral, Nightly, First dose on Tue03/09/24 at 2245 * 1324 (MAR Hold - Provider: User Epic - Reason: Patient not available) * 1644 (MAR Unhold - Provider: User Epic) * 2104 (Given - Provider: Daphne Mendoza RN) * 2126 (Given - Provider: Vangie Dorantes, BISHOP) * 2200 (Due) midodrine (PROAMATINE) tablet 5 mg 5 mg, oral, 3 times daily, First dose on Tue03/08/24 at 1530, Look-alike/sound-alike medication - verify indication for use. * 0610 (Given - Provider: Daphne Mendoza RN) * 1324 (MAR Hold - Provider: User Epic - Reason: Patient not available) * 1400 (Dose Auto Held - Provider: User Epic) * 1644 (MAR Unhold - Provider: User Epic) * 2104 (Given - Provider: Daphne Mendoza RN) * 0516 (Given - Provider: Daphne Sundling, RN) * 1350 (Given - Provider: Rhys Grey, RN) * 2126 (Given - Provider: Vangie Dorantes, RN) * 0617 (Given - Provider: Vangie Dorantes, BISHOP) * 1400 (Due) * 2200 (Due) ticagrelor (BRILINTA) tablet 90 mg 90 mg, oral, Every 12 hours scheduled, First dose on Tue03/17/24 at 1230 * 1350 (Given - Provider: Rhys Grey, RN) * 2126 (Given - Provider: Vangie Dorantes, BISHOP) * 0821 (Given - Provider: Micky Anderson RN) * 2100 (Due) Medication [id number]// acetaminophen (TYLENOL) tablet 325 mg 325 mg, oral, Every 6 hours PRN, mild pain - pain scale 1-3, Starting on Shakira 03/08/24 at 1245 * 1324 (APR Hold - Provider: User Epic - Reason: Patient not available) * 1644 (APR Unhold - Provider: User Epic) bupivacaine-EPINEPHrine (PF) (MARCAINE w/EPI) 0.5 %-1:[id number] injection (CANCELED) As needed, Starting on Tue03/16/24 at 1455, Intra-op * 1455 (Given - Provider: Piero Dumont Jr., MD) calcium gluconate 3,000 mg in sodium chloride 0.9 % 100 mL IVPB(Linked Group 1) 3,000 mg, intravenous, at 130 mL/hr, Administer over 60 Minutes, As needed, for ionized calcium level less than 3 mg/dL, Starting on Shakira 03/08/24 at 1053, CALL PHYSICIAN if this dose is administered. Recheck ionized calcium 6 hours after infusion. Hold calcium replacement for phosphorus greater than5.5 mg/dL. VESICANT (RED) * 1324 (APR Hold - Provider: User Epic - Reason: Patient not available) * 1644 (MAR Unhold - Provider: User Epic) calcium gluconate IVPB 1000 mg/50 mL (20 mg/mL premix)(Linked Group 1) 1,000 mg, intravenous, at 50 mL/hr, Administer over 60 Minutes, As needed, for ionized calcium level 3.5 to 4.4 mg/dL, Starting on Shakira 03/08/24 at 1053, Recheck ionized calcium 6 hours after infusion.Hold calcium replacement for phosphorus greater than 5.5 mg/dL. VESICANT (RED) * 1324 ([facility] Hold - Provider: User Epic - Reason: Patient not available) * 1644 ([facility] Unhold - Provider: User Epic) calcium gluconate IVPB 2000 mg/100 mL (20 mg/mL premix)(Linked Group 1) 2,000 mg, intravenous, at 100 mL/hr, Administer over 60 Minutes, As needed, for ionized calcium level 3 to 3.4 mg/dL, Starting on Shakira 03/08/24 at 1053, Recheck ionized calcium 6 hours after infusion. Hold calcium replacement for phosphorus greater than 5.5 mg/dL. VESICANT (RED) * 1324 ([facility] Hold - Provider: User Epic - Reason: Patient not available) * 1644 ([facility] Unhold - Provider: User Epic) dextrose (GLUTOSE) 40 % gel 15 g 15 g, oral, As needed, low blood sugar, blood glucose less than 70 mg/dL, Starting on Shakira 03/08/24 at 1053, If patient conscious and taking PO. If blood glucose is not greater than 70 mg/dL after initial treatment, repeat treatment. * 1324 ([facility] Hold - Provider: User Epic - Reason: Patient not available) * 1644 ([facility] Unhold - Provider: User Epic) dextrose 50 % in water (D50W) 50% solution 25 mL 25 mL, intravenous, As needed, low blood sugar, blood glucose less than 70 mg/dL and unconscious orNPO with IV access, Starting on Shakira 03/08/24 at 1053, Push over 1-3 minutes STAT. If conscious and not NPO, immediately follow with meal tray or high protein (7 grams) snack if tray not available. If NPO, initiate 5% dextrose in water at 100 mL/hr and contact prescriber for additional orders. If blood glucose is not greater than 70 mg/dL after initial treatment, repeat treatment. VESICANT (RED) Warning: HYPERTONIC solution. * 1324 ([facility] Hold - Provider: User Epic - Reason: Patient not available) * 1644 ([facility] Unhold - Provider: User Epic) fentaNYL (SUBLIMAZE) injection 50 mcg (CANCELED) 50 mcg, intravenous, Every 5 min PRN, Pain Scale 6-10, Starting on Tue03/16/24 at 1523, PACU (only), Up to a maximum dose of 150 mcg. Look-alike/sound-alike medication - verify indication for use. * 1525 (Given - Provider: Wendy Gutierrez, RN) * 1534 (Given - Provider: Wendy Gutierrez, RN) glucagon HCL injection 1 mg 1 mg, intramuscular, As needed, low blood sugar, blood glucose less than 70 mg/dL and unconscious or NPO without IV access., Starting on Tue03/08/24 at 1053, If conscious and not NPO, immediately follow with meal tray or high protein (7Grams) snack if tray not available. If NPO, initiate IV 5% Dextr ose/Water at 100 mL/hr and contact prescriber for additional orders. If blood glucose is not greater than 70 mg/dL after initial treatment, repeat treatment. * 1324 (MAR Hold - Provider: User Epic - Reason: Patient not available) * 1644 (MAR Unhold - Provider: User Epic) iohexoL (OMNIPAQUE) 300 mg iodine/mL (CANCELED) As needed, Starting on Tue03/16/24 at 1456, Intra-op * 1456 (Given - Provider: Piero Dumont Jr., MD - Comment: ADMINISTERED VIA [employer]PHON [employer]ALLOONS) ipratropium-albuteroL (DUONEB) 0.5 mg-3 mg(2.5 mg base)/3 mL nebulizer solution 3 mL 3 mL, nebulization, Every 6 hours PRN, wheezing, Starting on Tue03/08/24 at 1244, Implement INPATIENT/ED Bronchodilator Clinical Practice Guidelines? Yes * 1324 (MAR Hold - Provider: User Epic - Reason: Patient not available) * 1644 (MAR Unhold - Provider: User Epic) magnesium sulfate IVPB 2000 mg/50 mL in iso-osmotic water (40 mg/mL premix) (Linked Group 2) 2,000 mg, intravenous, at 25 mL/hr, Administer over 120 Minutes, As needed, for magnesium level 1.7to 1.9 mg/dL or ionized magnesium level 0.45 to 0.5 mmol/L, Starting on Tue03/08/24 at 1053, Use premix solution. Default to ionized magnesium level in cases where patient has both magnesium and ionized magnesium results. If administered, check ionized magnesium (or total magnesium if ionized magnesium unavailable) level 4 hours after infusion. * 0838 (See Alternative - Provider: Micky Anderson RN) * 1238 (See Alternative - Provider: Micky Anderson RN) * 1324 (MAR Hold - Provider: User Epic - Reason: Patient not available) * 1644 (APR Unhold - Provider: User Epic) * 0922 (New Bag - Provider: Micky Anderson RN) * 1122 (Stop Bag - Provider: Micky Anderson RN) * 0823 (See Alternative - Provider: Micky Anderson RN) * 1223 (See Alternative - Provider: Micky Anderson RN) magnesium sulfate IVPB 4000 mg/100 mL in iso-osmotic water (40 mg/mL premix) (Linked Group 2) 4,000 mg, intravenous, at 25 mL/hr, Administer over 240 Minutes, As needed, for magnesium level 1.6mg/mL or less, or ionized magnesium level 0.44 mmol/L or less, Starting on Shakira 03/08/24 at 1053, Usepremix solution. Default to ionized magnesium level in cases where patient has both magnesium and ionized magnesium results. If administered, check ionized magnesium (or total magnesium if ionized magnesium unavailable) level 4 hours after infusion. * 0838 (New Bag - Provider: Micky Anderson RN) * 1238 (Stop Bag - Provider: Micky Anderson RN) * 1324 (APR Hold - Provider: User Epic - Reason: Patient not available) * 1644 (MAR Unhold - Provider: User Epic) * 0922 (See Alternative - Provider: Micky Anderson RN) * 1122 (See Alternative - Provider: Micky Anderson, BISHOP) * 0823 (New Bag - Provider: Micky Anderson RN) * 1223 (Stop Bag - Provider: Micky Anderson RN) ondansetron (PF) (ZOFRAN) injection 4 mg 4 mg, intravenous, Every 6 hours PRN, nausea, vomiting, Starting on Shakira 03/08/24 at 1246, Administerover 2-5 minutes. * 1324 ([facility] Hold - Provider: User Epic - Reason: Patient not available) * 1644 ([facility] Unhold - Provider: User Epic) oxyCODONE-acetaminophen (PERCOCET) 5-325 mg per tablet 1 tablet 1 tablet, oral, Every 6 hours PRN, moderate pain - pain scale 4-6, severe pain - pain scale 7-10, Starting on Shakira 03/08/24 at 2018, Look-alike/sound-alike medication - verify indication for use. * 0828 (Return to Cabinet - Provider: Micky Anderson, BISHOP) * 1324 ([facility] Hold - Provider: User Epic - Reason: Patient not available) * 1520 (MAR Unhold - Provider: Wendy Gutierrez, BISHOP) * 1652 (Given - Provider: Micky Anderson RN) potassium chloride (K-TAB,KLOR-CON) CR tablet 20-50 mEq(Linked Group 3) 20-50 mEq, oral, As needed, for potassium replacement, Starting on Shakira 03/08/24 at 1053, Progress tooral potassium replacement when patient tolerating oral intake. If dose administered, recheck potassium level 4 hours after last dose. For potassium level 3.4 to 3.8 mmol/L and Serum Creatinine 1.2 or less=30 mEq. For potassium level 3.1 to 3.3 mmol/L and Serum Creatinine 1.2 or less=40 mEq. For potassium level 3 mmol/L or less and Serum Creatinine 1.2 or less=50 mEq. For potassium level 3.4 to 3.8 mmol/L and Serum Creatinine greater than 1.2=20 mEq. For potassium level 3.1 to 3.3 mmol/L and Serum Creatinine greater than 1.2=30 mEq. For potassium level 3 mmol/L or less and Serum Creatinine greater than 1.2=40 mEq. Do not crush or chew. * 1324 ([facility] Hold - Provider: User Epic - Reason: Patient not available) * 1644 ([facility] Unhold - Provider: User Epic) potassium chloride (KAYCIEL) 20 mEq/15 mL solution 20-50 mEq(Linked Group 3) 20-50 mEq, oral, As needed, potassium replacement, Starting on Shakira 03/08/24 at 1053, Progress to oral potassium replacement when patient tolerating oral intake. If dose administered, recheck potassiumlevel 4 hours after last dose. For potassium level 3.4 to 3.8 mmol/L and Serum Creatinine 1.2 or less=30 mEq (22.5mL). For potassium level 3.1 to 3.3 mmol/L and Serum Creatinine 1.2 or less=40 mEq (30mL). For potassium level 3 mmol/L or less and Serum Creatinine 1.2 or less=50 mEq (37.5mL). For potassium level 3.4 to 3.8 mmol/L and Serum Creatinine greater than 1.2=20 mEq (15mL). For potassium level 3.1 to 3.3 mmol/L and Serum Creatinine greater than 1.2=30 mEq (22.5mL). For potassium level 3 mm ol/L or less and Serum Creatinine greater than 1.2=40 mEq (30mL). Must dilute before use - Mix in 3-8 ounces of water or juice before administration When administering in feeding tube, flush before and after per policy and monitor potassium levels * 1324 (MAR Hold - Provider: User [employer] - Reason: Patient not available) * 1644 (MAR Unhold - Provider: User [employer]) potassium chloride IVPB 10 mEq/100 mL in water (0.1 mEq/mL premix)(Linked Group 4) 10 mEq, intravenous, at 100 mL/hr, Administer over 60 Minutes, As needed, for potassium replacement, Starting on Shakira 03/08/24 at 1053, Administer Potassium Chloride IVPB in 10 mEq increments. Maximum infusion rates: Central Line = 20 mEq/hour; Peripheral Line = 10 mEq/hour (10 mEq/100 mL). If dose administered, recheck potassium level 1 hour after infusion complete. For potassium level 3.4 to 3.8 mmol/L and Serum Creatinine 1.2 or less = 30 mEq For potassium level 3.1 to 3.3 mmol/L and Serum Creatinine 1.2 or less = 40 mEq For potassium level 3 mmol/L or less and Serum Creatinine 1.2 or less =50 mEq For potassium level 3.4 to 3.8 mmol/L and Serum Creatinine greater than 1.2 = 20 mEq For potassium level 3.1 to 3.3 mmol/L and Serum Creatinine greater than 1.2 = 30 mEq For potassium level 3 mmol/L or less and Serum Creatinine greater than 1.2 = 40 mEq VESICANT (YELLOW) Infuse each 10 mEq over a minimum of 1 hour. * 1324 ([facility] Hold - Provider: User Epic - Reason: Patient not available) * 1644 ([facility] Unhold - Provider: User Epic) potassium chloride IVPB 10 mEq/50 mL in water (0.2 mEq/mL premix)(Linked Group 4) 10 mEq, intravenous, at 50 mL/hr, Administer over 1 Hours, As needed, for potassium replacement, Starting on Shakira 03/08/24 at 1053, Administer Potassium Chloride IVPB in 10 mEq increments. Maximum infusion rates: Central Line = 20 mEq/hour. Administer via Central Line Only. If dose administered, recheck potassium level 1 hour after infusion complete. For potassium level 3.4 to 3.8 mmol/L and Serum Creatinine 1.2 or less = 30 mEq For potassium level 3.1 to 3.3 mmol/L and Serum Creatinine 1.2 or less = 40 mEq For potassium level 3 mmol/L or less and Serum Creatinine 1.2 or less = 50 mEq For potassium level 3.4 to 3.8 mmol/L and Serum Creatinine greater than 1.2 = 20 mEq For potassium level 3.1 to 3.3 mmol/L and Serum Creatinine greater than 1.2 = 30 mEq For potassium level 3 mmol/L or less and Serum Creatinine greater than 1.2 = 40 mEq VESICANT (YELLOW) * 1324 ([facility] Hold - Provider: User Epic - Reason: Patient not available) * 1644 ([facility] Unhold - Provider: User Epic) sennosides-docusate sodium (SENOKOT-S) 8.6-50 mg 2 tablet 2 tablet, oral, 2 times daily PRN, constipation, Starting on 03/10/24 at 1028 * 1324 ([facility] Hold - Provider: User Epic - Reason: Patient not available) * 1644 ([facility] Unhold - Provider: User Epic) sod phos di, mono-K phos mono (K-PHOS NEUTRAL) 250 mg tablet 2 tablet(Linked Group 5) 2 tablet, oral, As needed, for phosphorous level 2.3 mg/dL or less, Starting on Shakiar 03/08/24 at 1053, If dose administered, recheck phosphorus level 4 hours after last dose. Look-alike/sound-alike medication - verify indication for use. Give with a full glass of water. * 0835 (Given - Provider: Micky Anderson RN) * 1324 ([facility] Hold - Provider: User Epic - Reason: Patient not available) * 1644 ([facility] Unhold - Provider: User Epic) * 1124 (Given - Provider: Micky Anderson RN) * 1830 (Given - Provider: Rhys Grey, BISHOP) sodium chloride 0.9% (NS) irrigation bottle (CANCELED) As needed, Starting on Tue03/16/24 at 1432, Intra-op * 1432 (Given - Provider: Piero Dumont Jr., MD - Comment: GIVEN TO BACK TABLE) sodium phosphate 20 mmol in sodium chloride 0.9 % 100 mL IVPB(Linked Group 5) 20 mmol, intravenous, at 26.7 mL/hr, Administer over 4 Hours, As needed, for phosphorous level 2.3 mg/dL or less, Starting on Shakira 03/08/24 at 1053, Administer over 4 hours via dedicated line(central line). If administered, recheck phosphorus level 4 hours after infusion complete. Infuse using central line access. * 0835 (See Alternative - Provider: Micky Anderson RN) * 1324 ([facility] Hold - Provider: User Epic - Reason: Patient not available) * 1644 ([facility] Unhold - Provider: User Epic) * 1124 (See Alternative - Provider: Micky Anderson RN) * 1830 (See Alternative - Provider: Rhys Grey, BISHOP) sodium phosphate 20 mmol in sodium chloride 0.9 % 250 mL IVPB(Linked Group 5) 20 mmol, intravenous, at 42.8 mL/hr, Administer over 6 Hours, As needed, for phosphorous level 2.3 mg/dL or less, Starting on Shakira 03/08/24 at 1053, Administer over 6 hours via dedicated line (peripheral line). If administered, recheck phosphorus level 4 hours after infusion complete. * 0835 (See Alternative - Provider: Micky Anderson RN) * 1324 ([facility] Hold - Provider: User Epic - Reason: Patient not available) * 1644 ([facility] Unhold - Provider: User Epic) * 1124 (See Alternative - Provider: Micky Anderson RN) * 1830 (See Alternative - Provider: Rhys Grey, BISHOP) Order Group 1: calcium gluconate IVPB 1000 mg/50 mL (20 mg/mL premix)Jump to med 1,000 mg, intravenous, at 50 mL/hr, Administer over 60 Minutes, As needed, for ionized calcium level 3.5 to 4.4 mg/dL, Starting on Shakira 03/08/24 at 1053, Recheck ionized calcium 6 hours after infusion.Hold calcium replacement for phosphorus greater than 5.5 mg/dL. VESICANT (RED) Or calcium gluconate IVPB 2000 mg/100 mL (20 mg/mL premix)Jump to med 2,000 mg, intravenous, at 100 mL/hr, Administer over 60 Minutes, As needed, for ionized calcium level 3 to 3.4 mg/dL, Starting on Shakira 03/08/24 at 1053, Recheck ionized calcium 6 hours after infusion. Hold calcium replacement for phosphorus greater than 5.5 mg/dL. VESICANT (RED) Or calcium gluconate 3,000 mg in sodium chloride 0.9 % 100 mL IVPBJump to med 3,000 mg, intravenous, at 130 mL/hr, Administer over 60 Minutes, As needed, for ionized calcium level less than 3 mg/dL, Starting on Shakira 03/08/24 at 1053, CALL PHYSICIAN if this dose is administered. Recheck ionized calcium 6 hours after infusion. Hold calcium replacement for phosphorus greater than5.5 mg/dL. VESICANT (RED) Group 2: magnesium sulfate IVPB 2000 mg/50 mL in iso-osmotic water (40 mg/mL premix)Jump to med 2,000 mg, intravenous, at 25 mL/hr, Administer over 120 Minutes, As needed, for magnesium level 1.7to 1.9 mg/dL or ionized magnesium level 0.45 to 0.5 mmol/L, Starting on Shakira 03/08/24 at 1053, Use premix solution. Default to ionized magnesium level in cases where patient has both magnesium and ionized magnesium results. If administered, check ionized magnesium (or total magnesium if ionized magnesium unavailable) level 4 hours after infusion. Or magnesium sulfate IVPB 4000 mg/100 mL in iso-osmotic water (40 mg/mL premix)Jump to med 4,000 mg, intravenous, at 25 mL/hr, Administer over 240 Minutes, As needed, for magnesium level 1.6mg/mL or less, or ionized magnesium level 0.44 mmol/L or less, Starting on Shakira 03/08/24 at 1053, Usepremix solution. Default to ionized magnesium level in cases where patient has both magnesium and ionized magnesium results. If administered, check ionized magnesium (or total magnesium if ionized magnesium unavailable) level 4 hours after infusion. Group 3: potassium chloride (K-TAB,KLOR-CON) CR tablet 20-50 mEqJump to med 20-50 mEq, oral, As needed, for potassium replacement, Starting on Shakira 03/08/24 at 1053, Progress tooral potassium replacement when patient tolerating oral intake. If dose administered, recheck potassium level 4 hours after last dose. For potassium level 3.4 to 3.8 mmol/L and Serum Creatinine 1.2 or less=30 mEq. For potassium level 3.1 to 3.3 mmol/L and Serum Creatinine 1.2 or less=40 mEq. For potassium level 3 mmol/L or less and Serum Creatinine 1.2 or less=50 mEq. For potassium level 3.4 to 3.8 mmol/L and Serum Creatinine greater than 1.2=20 mEq. For potassium level 3.1 to 3.3 mmol/L and Serum Creatinine greater than 1.2=30 mEq. For potassium level 3 mmol/L or less and Serum Creatinine greater than 1.2=40 mEq. Do not crush or chew. Or potassium chloride (KAYCIEL) 20 mEq/15 mL solution 20-50 mEqJump to med 20-50 mEq, oral, As needed, potassium replacement, Starting on Shakira 03/08/24 at 1053, Progress to oral potassium replacement when patient tolerating oral intake. If dose administered, recheck potassiumlevel 4 hours after last dose. For potassium level 3.4 to 3.8 mmol/L and Serum Creatinine 1.2 or less=30 mEq (22.5mL). For potassium level 3.1 to 3.3 mmol/L and Serum Creatinine 1.2 or less=40 mEq (30mL). For potassium level 3 mmol/L or less and Serum Creatinine 1.2 or less=50 mEq (37.5mL). For potassium level 3.4 to 3.8 mmol/L and Serum Creatinine greater than 1.2=20 mEq (15mL). For potassium level 3.1 to 3.3 mmol/L and Serum Creatinine greater than 1.2=30 mEq (22.5mL). For potassium level 3 mm ol/L or less and Serum Creatinine greater than 1.2=40 mEq (30mL). Must dilute before use - Mix in 3-8 ounces of water or juice before administration When administering in feeding tube, flush before and after per policy and monitor potassium levels Group 4: potassium chloride IVPB 10 mEq/50 mL in water (0.2 mEq/mL premix)Jump to med 10 mEq, intravenous, at 50 mL/hr, Administer over 1 Hours, As needed, for potassium replacement, Starting on Shakira 03/08/24 at 1053, Administer Potassium Chloride IVPB in 10 mEq increments. Maximum infusion rates: Central Line = 20 mEq/hour. Administer via Central Line Only. If dose administered, recheck potassium level 1 hour after infusion complete. For potassium level 3.4 to 3.8 mmol/L and Serum Creatinine 1.2 or less = 30 mEq For potassium level 3.1 to 3.3 mmol/L and Serum Creatinine 1.2 or less = 40 mEq For potassium level 3 mmol/L or less and Serum Creatinine 1.2 or less = 50 mEq For potassium level 3.4 to 3.8 mmol/L and Serum Creatinine greater than 1.2 = 20 mEq For potassium level 3.1 to 3.3 mmol/L and Serum Creatinine greater than 1.2 = 30 mEq For potassium level 3 mmol/L or less and Serum Creatinine greater than 1.2 = 40 mEq VESICANT (YELLOW) Or potassium chloride IVPB 10 mEq/100 mL in water (0.1 mEq/mL premix)Jump to med 10 mEq, intravenous, at 100 mL/hr, Administer over 60 Minutes, As needed, for potassium replacement, Starting on Shakira 03/08/24 at 1053, Administer Potassium Chloride IVPB in 10 mEq increments. Maximum infusion rates: Central Line = 20 mEq/hour; Peripheral Line = 10 mEq/hour (10 mEq/100 mL). If dose administered, recheck potassium level 1 hour after infusion complete. For potassium level 3.4 to 3.8 mmol/L and Serum Creatinine 1.2 or less = 30 mEq For potassium level 3.1 to 3.3 mmol/L and Serum Creatinine 1.2 or less = 40 mEq For potassium level 3 mmol/L or less and Serum Creatinine 1.2 or less =50 mEq For potassium level 3.4 to 3.8 mmol/L and Serum Creatinine greater than 1.2 = 20 mEq For potassium level 3.1 to 3.3 mmol/L and Serum Creatinine greater than 1.2 = 30 mEq For potassium level 3 mmol/L or less and Serum Creatinine greater than 1.2 = 40 mEq VESICANT (YELLOW) Infuse each 10 mEq over a minimum of 1 hour. Group 5: sodium phosphate 20 mmol in sodium chloride 0.9 % 250 mL IVPBJump to med 20 mmol, intravenous, at 42.8 mL/hr, Administer over 6 Hours, As needed, for phosphorous level 2.3 mg/dL or less, Starting on Shakira 03/08/24 at 1053, Administer over 6 hours via dedicated line (peripheral line). If administered, recheck phosphorus level 4 hours after infusion complete. Or sodium phosphate 20 mmol in sodium chloride 0.9 % 100 mL IVPBJump to med 20 mmol, intravenous, at 26.7 mL/hr, Administer over 4 Hours, As needed, for phosphorous level 2.3 mg/dL or less, Starting on Shakira 03/08/24 at 1053, Administer over 4 hours via dedicated line(central line). If administered, recheck phosphorus level 4 hours after infusion complete. Infuse using central line access. Or sod phos di, mono-K phos mono (K-PHOS NEUTRAL) 250 mg tablet 2 tabletJump to med 2 tablet, oral, As needed, for phosphorous level 2.3 mg/dL or less, Starting on Shakira 03/08/24 at 1053, If dose administered, recheck phosphorus level 4 hours after last dose. Look-alike/sound-alike medication - verify indication for use. Give with a full glass of water. Medication Order09/08//// aspirin EC tablet 81 mg 81 mg, oral, Daily, First dose on Shakira 09/08/23 at 1500, Do not crush or chew. * 0820 (Given - Provider: Izabella Rogers RN) * 0841 (Given - Provider: Izabella Rogers RN) * 0900 (Given - Provider: Henna Beasley RN) atorvastatin (LIPITOR) tablet 20 mg 20 mg, oral, Nightly, First dose on Shakira 09/08/23 at 2200, Look-alike/sound-alike medication - verifyindication for use. * 2148 (Given - Provider: Virginia Christina RN) * 2049 (Given - Provider: Virginia Christina RN) * 2199 (Canceled Entry - Provider: Virginia Christina RN) * 2199 (Due) dapagliflozin propanediol (FARXIGA) tablet 10 mg 10 mg, oral, Daily, First dose on Shakira 09/08/23 at 1830 * 0821 (Given - Provider: Izabella Rogers RN) * 0842 (Given - Provider: Izabella Rogers RN) * 0807 (Given - Provider: Henna Beasley, BISHOP) enoxaparin (LOVENOX) syringe 40 mg 40 mg, subcutaneous, Daily, First dose on Shakira 09/08/23 at 1500, Look-alike/sound-alike medication - verify indication for use. * 0539 (Given - Provider: Viki Lu RN) * 0635 (Given - Provider: Tasia Huynh, BISHOP) * 0531 (Given - Provider: Virginia Christina RN) folic acid (FOLVITE) tablet 1 mg 1 mg, oral, Daily, First dose on Shakira 09/08/23 at 1500, Look-alike/sound-alike medication - verify indication for use. * 0820 (Given - Provider: Izabella Rogers RN) * 0841 (Given - Provider: Izabella Rogers RN) * 0803 (Given - Provider: Henna Beasley, BISHOP) furosemide (LASIX) injection 40 mg 40 mg, intravenous, 2 times daily, First dose (after last reorder) on Shakira 09/08/23 at 2100, Look-alike/sound-alike medication - verify indication for use. IVP rate = 20 mg/min * 0820 (Given - Provider: Izabella Rogers RN) * 2000 (Given - Provider: Virginia Christina RN) * 0636 (Given - Provider: Tasia Huynh RN) * 184 (Given - Provider: Izabella Rogers RN) * 0530 (Given - Provider: Virginia Christina RN) * 1800 (Due - Provider: Sudha Grubbs [facility]) insulin lispro (HumaLOG) injection 2-10 Units 2-10 Units, subcutaneous, 3 times daily with meals, First dose on Shakira 09/08/23 at 1700, Daytime hyperglycemia dosing. For blood glucose 151-200 mg/dL, give 2 units. For blood glucose 201-250 mg/dL, give 4 units. For blood glucose 251-300 mg/dL, give 6 units. For blood glucose 301-350 mg/dL, give 8 units. For blood glucose 351-400 mg/dL, give 10 units. Give even if NPO or meals skipped. Do NOT givemore often then every 4 hours when NPO. Notify prescriber if blood glucose greater than 400 mg/dL. Look-alike/sound-alike medication - verify indication for use. Prime with 2 units of insulin prior to administration. Prandial/supplemental Insulin. Pre-filled pens stable 28 days at room temperature.Insulin lispro should be administered within 15 minutes before or immediately after a meal. * 0827 (Given - Provider: Izabella Rogers RN) * 1346 (Given - Provider: Izabella Rogers RN) * 1700 (Not Given - Provider: Helder Zamarripa RN - Reason: Order parameters not met) * 0800 (Not Given - Provider: Izabella Rogers RN - Reason: Order parameters not met) * 1200 (Not Given - Provider: Izabella Rogers RN - Reason: Order parameters not met) * 1700 (Not Given - Provider: Izabella Rogers RN - Reason: Order parameters not met) * 0800 (Not Given - Provider: Henna Beasley RN - Reason: Order parameters not met) * 1200 (Due) * 1700 (Due) insulin lispro (HumaLOG) injection 2-8 Units 2-8 Units, subcutaneous, Nightly, First dose on Shakira 09/08/23 at 2200, Bedtime hyperglycemia dosing. For blood glucose 201-250 mg/dL, give 2 units. For blood glucose 251-300 mg/dL, give 4 units. For blood glucose 301-350 mg/dL, give 6 units. For blood glucose 351-400 mg/dL, give 8 units. Give even ifNPO or meals skipped. Do NOT give more often then every 4 hours when NPO. Notify prescriber if blood glucose greater than 400 mg/dL. Look-alike/sound-alike medication - verify indication for use. Prime with 2 units of insulin prior to administration. Prandial/supplemental Insulin. Pre-filled pens stable 28 days at room temperature. Insulin lispro should be administered within 15 minutes before orimmediately after a meal. * 2200 (Not Given - Provider: Virginia Christina RN - Reason: Order parameters not met - Comment: BS - 162) * 2200 (Not Given - Provider: Virginia Christina RN - Reason: Order parameters not met - Comment: BS - 126) * 2200 (Due) metFORMIN XR (GLUCOPHAGE XR) 24 hr tablet 750 mg 750 mg, oral, Daily with breakfast, First dose on Tue09/08/23 at 1530, Hold dose and notify prescriber if blood glucose is less than 100 mg/dL or patient status has changed to NPO. Look-alike/sound-alike medication - verify indication for use. May alter blood glucose or insulin requirements. Metformin and use of contrast media will be reviewed according to Metformin and Metformin Containing Medications and Contrast Media policy. Do not crush or chew. * 0821 (Given - Provider: Izabella Rogers RN) * 0842 (Given - Provider: Izabella Rogers RN) * 0805 (Given - Provider: Henna Beasley RN) metoprolol (LOPRESSOR) split tablet 12.5 mg 12.5 mg, oral, 2 times daily, First dose on Tue09/08/23 at 2100, Look-alike/sound-alike medication - verify indication for use. * 0820 (Given - Provider: Izabella Rogers RN) * 2149 (Given - Provider: Virginia Christina RN) * 0841 (Given - Provider: Izabella Rogers RN) * 2049 (Given - Provider: Virginia Christina RN) * 0802 (Given - Provider: Henna Beasley RN) * 2100 (Due) pantoprazole (PROTONIX) EC tablet 40 mg 40 mg, oral, Every morning before breakfast, First dose on Tue09/08/23 at 1515, Look-alike/sound-alike medication - verify indication for use. If patient is receiving enteral feeding, consider alternative PPI or continue IV pantoprazole until the delayed-release tablet can be taken orally, Indication: GERD * 0540 (Given - Provider: Viki Lu RN) * 0633 (Given - Provider: Tasia Huynh RN) * 0530 (Given - Provider: Virginia Christina RN) PARoxetine (PAXIL) tablet 10 mg 10 mg, oral, Daily, First dose on Tue09/08/23 at 1530, Look-alike/sound-alike medication - verify indication for use. * 0821 (Given - Provider: Izabella Rogers RN) * 0841 (Given - Provider: Izabella Rogers RN) * 0807 (Given - Provider: Henna Beasley RN) spironolactone (ALDACTONE) tablet 25 mg 25 mg, oral, Daily, First dose on Tue09/09/23 at 0900 * 0820 (Given - Provider: Izabella Rogers RN) * 0841 (Given - Provider: Izabella Rogers RN) * 0803 (Given - Provider: Henna Beasley RN) ticagrelor (BRILINTA) tablet 90 mg 90 mg, oral, Every 12 hours scheduled, First dose on Tue09/09/23 at 1400 * 1345 (Given - Provider: Izabella Rogers RN) * 2149 (Given - Provider: Virginia Christina RN) * 0841 (Given - Provider: Izabella Rogers RN) * 2050 (Given - Provider: Virginia Christina RN) * 0807 (Given - Provider: Henna Beasley RN) * 2100 (Due) Medication Order09/08//// acetaminophen (TYLENOL EXTRA STRENGTH) tablet 1,000 mg 1,000 mg, oral, Every 6 hours PRN, headaches, temperature greater than 38 C, severe pain - pain scale 7-10, Starting on Tue09/08/23 at 2055 * 2149 (Given - Provider: Virginia Christina RN) acetaminophen (TYLENOL) tablet 650 mg 650 mg, oral, Every 6 hours PRN, mild pain - pain scale 1-3, headaches, temperature greater than 38C, Temperature greater than 38.3 C, Starting on Shakira 09/08/23 at 1455, [Warning: Total Acetaminophen not to exceed more than 4 grams (4000 mg) in 24 hours] albuterol (PROVENTIL,VENTOLIN) nebulizer solution 2.5 mg 2.5 mg, nebulization, Every 6 hours PRN, wheezing, Starting on Shakira 09/08/23 at 1454, Implement INPATIENT/ED Bronchodilator Clinical Practice Guidelines? Yes, Document: \[email or web address]\epic\[email or web address]_Reference\Orders\Respiratory Care Guidelines\CPG Bronchodilator 2020.pdf benzonatate (TESSALON PERLES) capsule 200 mg 200 mg, oral, 3 times daily PRN, cough, Starting on Shakira 09/08/23 at 1454, Do not crush, chew or dissolve. calcium gluconate 3,000 mg in sodium chloride 0.9 % 100 mL IVPB 3,000 mg, intravenous, at 43.3 mL/hr, Administer over 3 Hours, As needed, ionized calcium 3.5 to 3.9 mg/dL, Starting on Shakira 09/08/23 at 1454, IV Administration of calcium via a central or deep vein preferred. Avoid administration in small hand veins VESICANT (RED) calcium gluconate 4,000 mg in sodium chloride 0.9 % 250 mL IVPB 4,000 mg, intravenous, at 72.5 mL/hr, Administer over 4 Hours, As needed, ionized calcium 3.4 mg/dLor less, Starting on Shakira 09/08/23 at 1454, IV administration of calcium via a central or deep vein is preferred. Avoid administration in small hand veins. VESICANT (RED) calcium gluconate IVPB 2000 mg/100 mL (20 mg/mL premix) 2,000 mg, intravenous, at 50 mL/hr, Administer over 2 Hours, As needed, ionized calcium 4 to 4.3 mg/dL, Starting on Shakira 09/08/23 at 1454, IV Administration of calcium via a central or deep vein preferred. Avoid administration in small hand veins VESICANT (RED) dextrose (GLUTOSE) 40 % gel 15 g 15 g, oral, As needed, low blood sugar, blood glucose less than 70 mg/dL, Starting on Shakira 09/08/23 at 1455, If patient conscious and taking PO. If blood glucose is not greater than 70 mg/dL after initial treatment, repeat treatment. dextrose 5 % (D5W) infusion 100 mL/hr, intravenous, Continuous PRN, blood glucose less than 70 mg/dL, Starting on Shakira 09/08/23 at 1455, Use immediately following dextrose 50% or glucagon treatment for patients who are unconscious or NPO. Contact prescriber for additional orders. If blood glucose is not greater than 70 mg/dL after initial treatment, repeat treatment. dextrose 50 % in water (D50W) 50% solution 25 mL 25 mL, intravenous, As needed, low blood sugar, blood glucose less than 70 mg/dL and unconscious orNPO with IV access, Starting on Shakira 09/08/23 at 1455, Push over 1-3 minutes STAT. If conscious and not NPO, immediately follow with meal tray or high protein (7 grams) snack if tray not available. If NPO, initiate 5% dextrose in water at 100 mL/hr and contact prescriber for additional orders. If blood glucose is not greater than 70 mg/dL after initial treatment, repeat treatment. VESICANT (RED) Warning: HYPERTONIC solution. glucagon HCL injection 1 mg 1 mg, intramuscular, As needed, low blood sugar, blood glucose less than 70 mg/dL and unconscious or NPO without IV access., Starting on Shakira 09/08/23 at 1455, If conscious and not NPO, immediately follow with meal tray or high protein (7Grams) snack if tray not available. If NPO, initiate IV 5% Dextr ose/Water at 100 mL/hr and contact prescriber for additional orders. If blood glucose is not greater than 70 mg/dL after initial treatment, repeat treatment. magnesium sulfate IVPB 2000 mg/50 mL in iso-osmotic water (40 mg/mL premix) 2,000 mg, intravenous, at 25 mL/hr, Administer over 120 Minutes, As needed, Magnesium level 1.7 to 1.9 mg/dL, or Ionized Magnesium level 0.45 to 0.5 mmol/L., Starting on Shakira 09/08/23 at 1454, Recheck magnesium level 4 hours after infusion complete. With each magnesium result continue the replacementorders as needed. magnesium sulfate IVPB 4000 mg/100 mL in iso-osmotic water (40 mg/mL premix) 4,000 mg, intravenous, at 25 mL/hr, Administer over 240 Minutes, As needed, Magnesium level 1.6 mg/dL or less, or Ionized Magnesium level 0.44 mmol/L or less, Starting on Shakira 09/08/23 at 1454, Recheckmagnesium level 4 hours after infusion complete. With each magnesium result continue the replacement orders as needed. * 0046 (Stop Bag - Provider: Viki Lu, BISHOP) * 0801 (New Bag - Provider: Henna Beasley, BISHOP) * 1201 (Due: Stop Bag - Provider: Henna Beasley, BISHOP) melatonin (CIRCADIN) tablet 4.5 mg 4.5 mg (rounded from 5 mg), oral, Nightly PRN, sleep, Starting on Shakira 09/08/23 at 2347 * 0049 (Given - Provider: Viki Lu, BISHOP) * 2149 (Given - Provider: Virginia Christina, BISHOP) nitroglycerin (NITROSTAT) disintegrating tablet 0.4 mg 0.4 mg, sublingual, Every 5 min PRN, chest pain, Starting on Shakira 09/08/23 at 1454, May administer upto 3 doses per episode. ondansetron (PF) (ZOFRAN) injection 4 mg 4 mg, intravenous, Every 6 hours PRN, nausea, vomiting, Starting on Shakira 09/08/23 at 1455, Administerover 2-5 minutes. potassium chloride (K-TAB,KLOR-CON) CR tablet 30-50 mEq(Linked Group 1) 30-50 mEq, oral, As needed, potassium supplementation, Starting on Shakira 09/08/23 at 1455, Progress tooral potassium replacement when patient tolerating oral intake. If dose administered, recheck potassium level 4 hours after last dose. For potassium level 3.4 to 3.8 mmol/L and GFR 30 mL/min or greater=30 mEq. For potassium level 3.1 to 3.3 mmol/L and GFR 30 mL/min or greater=40 mEq. For potassium level 3 mmol/L or less and GFR 30 mL/min or greater=50 mEq. Do not crush or chew. * 0820 (Given - Provider: Izabella Rogers RN) * 1345 (Given - Provider: Izabella Rogers RN) * 0803 (Given - Provider: Henna Beasley, BISHOP) potassium chloride (KAYCIEL) 20 mEq/15 mL solution 30-50 mEq(Linked Group 1) 30-50 mEq, oral, As needed, potassium supplementation, Starting on Shakira 09/08/23 at 1455, Progress tooral potassium replacement when patient tolerating oral intake. If dose administered, recheck potassium level 4 hours after last dose. For potassium level 3.4 to 3.8 mmol/L and GFR 30 mL/min or greater=30 mEq. For potassium level 3.1 to 3.3 mmol/L and GFR 30 mL/min or greater=40 mEq. For potassium level 3 mmol/L or less and GFR 30 mL/min or greater=50 mEq. Must dilute before use - Mix in 3-8 ounces of water or juice before administration When administering in feeding tube, flush before and after per policy and monitor potassium levels * 0820 (See Alternative - Provider: Izabella Rogers RN) * 1345 (See Alternative - Provider: Izabella Rogers RN) * 0803 (See Alternative - Provider: Henna Beasley, BISHOP) sod phos di, mono-K phos mono (K-PHOS NEUTRAL) 250 mg tablet 2 tablet(Linked Group 2) 2 tablet, oral, As needed, for phosphorus level 2.3 mg/dL or less., Starting on Shakira 09/08/23 at 1455, If dose administered, recheck phosphorus level 4 hours after last dose. Look-alike/sound-alike medication - verify indication for use. Give with a full glass of water. sodium chloride 0.9 % flush bag 25 mL, intravenous, at 100 mL/hr, Administer over 15 Minutes, As needed, line care, line care afterIVPB administration, Starting on Shakira 09/08/23 at 1455 sodium chloride 0.9 % infusion 20 mL/hr, intravenous, Continuous PRN, to maintain patency of lines, Starting on Shakira 09/08/23 at 1455 sodium phosphate 20 mmol in sodium chloride 0.9 % 100 mL IVPB(Linked Group 2) 20 mmol, intravenous, at 26.7 mL/hr, Administer over 4 Hours, As needed, for phosphorus level 2.3 mg/dL or less., Starting on Shakira 09/08/23 at 1455, Administer over 4 hours via dedicated line (central line). If administered, recheck phosphorus level 4 hours after infusion complete. Infuse using central line access. sodium phosphate 20 mmol in sodium chloride 0.9 % 250 mL IVPB(Linked Group 2) 20 mmol, intravenous, at 42.8 mL/hr, Administer over 6 Hours, As needed, for phosphorus level 2.3 mg/dL or less, Starting on Shakira 09/08/23 at 1455, Administer over 6 hours via dedicated line (peripheral line). If administered, recheck phosphorus level 4 hours after infusion complete. Order Group 1: potassium chloride (K-TAB,KLOR-CON) CR tablet 30-50 mEqJump to med 30-50 mEq, oral, As needed, potassium supplementation, Starting on Shakira 09/08/23 at 1455, Progress tooral potassium replacement when patient tolerating oral intake. If dose administered, recheck potassium level 4 hours after last dose. For potassium level 3.4 to 3.8 mmol/L and GFR 30 mL/min or greater=30 mEq. For potassium level 3.1 to 3.3 mmol/L and GFR 30 mL/min or greater=40 mEq. For potassium level 3 mmol/L or less and GFR 30 mL/min or greater=50 mEq. Do not crush or chew. Or potassium chloride (KAYCIEL) 20 mEq/15 mL solution 30-50 mEqJump to med 30-50 mEq, oral, As needed, potassium supplementation, Starting on Shakira 09/08/23 at 1455, Progress tooral potassium replacement when patient tolerating oral intake. If dose administered, recheck potassium level 4 hours after last dose. For potassium level 3.4 to 3.8 mmol/L and GFR 30 mL/min or greater=30 mEq. For potassium level 3.1 to 3.3 mmol/L and GFR 30 mL/min or greater=40 mEq. For potassium level 3 mmol/L or less and GFR 30 mL/min or greater=50 mEq. Must dilute before use - Mix in 3-8 ounces of water or juice before administration When administering in feeding tube, flush before and after per policy and monitor potassium levels Group 2: sodium phosphate 20 mmol in sodium chloride 0.9 % 250 mL IVPBJump to med 20 mmol, intravenous, at 42.8 mL/hr, Administer over 6 Hours, As needed, for phosphorus level 2.3 mg/dL or less, Starting on Shakira 09/08/23 at 1455, Administer over 6 hours via dedicated line (peripheral line). If administered, recheck phosphorus level 4 hours after infusion complete. Or sodium phosphate 20 mmol in sodium chloride 0.9 % 100 mL IVPBJump to med 20 mmol, intravenous, at 26.7 mL/hr, Administer over 4 Hours, As needed, for phosphorus level 2.3 mg/dL or less., Starting on Shakira 09/08/23 at 1455, Administer over 4 hours via dedicated line (central line). If administered, recheck phosphorus level 4 hours after infusion complete. Infuse using central line access. Or sod phos di, mono-K phos mono (K-PHOS NEUTRAL) 250 mg tablet 2 tabletJump to med 2 tablet, oral, As needed, for phosphorus level 2.3 mg/dL or less., Starting on Shakira 09/08/23 at 1455, If dose administered, recheck phosphorus level 4 hours after last dose. Look-alike/sound-alike medication - verify indication for use. Give with a full glass of water. Medication Order// ampicillin-sulbactam (UNASYN) 3,000 mg in sodium chloride 0.9 % 100 mL IVPB-MBP (CANCELED) 3,000 mg, intravenous, at 200 mL/hr, Administer over 30 Minutes, Every 12 hours, First dose on Tue10/07/23 at 1030, ADD-VANTAGE/MBP- Discard 8 hours after activating; dissolve drug prior to administration., Indication: Community- acquired pneumonia * 1018 (New Bag - Provider: Gisele Peoples, RN) * 1100 (Stop Bag - Provider: Gisele Peoples, BISHOP) ampicillin-sulbactam (UNASYN) 3,000 mg in sodium chloride 0.9 % 100 mL IVPB-MBP 3,000 mg, intravenous, at 200 mL/hr, Administer over 30 Minutes, Every 12 hours, First dose (after last modification) on Tue10/10/23 at 2230, For 4 days, ADD-VANTAGE/MBP- Discard 8 hours after activating; dissolve drug prior to administration., Indication: Community-acquired pneumonia * 1048 (Stop Bag - Provider: Gisele Peoples RN - Comment: Time moved from discontinued orderdue to modification) * 2156 (New Bag - Provider: Patsy Rivera RN) * 2226 (Stop Bag - Provider: Patsy Rivera RN) * 1029 (New Bag - Provider: Gisele Peoples RN) * 1059 (Stop Bag - Provider: Gisele Peoples RN) * 2153 (New Bag - Provider: Patsy Rivera RN) * 2223 (Stop Bag - Provider: Patsy Rivera RN) * 1051 (New Bag - Provider: Doug Rice, BISHOP) * 1121 (Stop Bag - Provider: Doug Rice RN) aspirin EC tablet 81 mg (CANCELED) 81 mg, oral, Daily, First dose on Tue10/06/23 at 1030, Do not crush or chew. * 0833 (Given - Provider: Gisele Peoples RN) * 0835 (Given - Provider: Gisele Peoples RN) atorvastatin (LIPITOR) tablet 40 mg 40 mg, oral, Nightly, First dose on Tue10/06/23 at 2200, Look-alike/sound-alike medication - verifyindication for use. * 2133 (Given - Provider: Patsy Rivera RN) * 2153 (Given - Provider: Patsy Rivera RN) ferumoxytoL (FERAHEME) 510 mg in sodium chloride 0.9 % 100 mL IVPB (COMPLETED) 510 mg, intravenous, at 234 mL/hr, Administer over 30 Minutes, Once, On Tue10/11/23 at 1100, For 1 dose, Patient in reclined or semi-reclined position. Monitor for at least 30 min after infusion. AVOID the use of H1 antihistamines, such as diphenhydramine, as this may worsen hypersensitivity reactions., Indications: iron deficiency anemia * 1135 (New Bag - Provider: Gisele Peoples RN) * 1205 (Stop Bag - Provider: Gisele Peoples RN) furosemide (LASIX) injection 60 mg (COMPLETED) 60 mg, intravenous, Once, On Tue10/11/23 at 1045, For 1 dose, Look-alike/sound-alike medication - verify indication for use. IVP rate = 20 mg/min * 1135 (Given - Provider: Gisele Peoples RN) heparin (porcine) injection 5,000 Units 5,000 Units, subcutaneous, Every 8 hours scheduled, First dose on Tue10/06/23 at 0600, Notify prescriber if INR greater than 1.9, hemoglobin less than 10 mg/dL, aPTT greater than 40 seconds, and/or platelet count less than 100,000/mm Look-alike/sound-alike medication - verify indication for use. Observe for bleeding. * 0600 (Not Given - Provider: Pina Lin RN - Reason: See Provider Order - Comment: Per Dr. Courtney Fermin- hold am dose due to low hemoglobin) * 1412 (Given - Provider: Gisele Peoples RN) * 2133 (Given - Provider: Patsy Rivera RN) * 0615 (Given - Provider: Patsy Rivera RN) * 1352 (Given - Provider: Gisele Peoples RN) * 2152 (Given - Provider: Patsy Rivera RN) * 0600 (Hold - Provider: Olga Graham RN - Reason: Other - Comment: positive occult stool, hold per resident) * 1400 (Due) magnesium oxide (MAGOX) tablet 400 mg 400 mg, oral, 2 times daily, First dose on Tue10/11/23 at 0900 * 0835 (Given - Provider: Gisele Peoples RN) * 2152 (Given - Provider: Patsy Rivera RN) * 0812 (Given - Provider: Doug Rice RN) melatonin (CIRCADIN) tablet 6 mg 6 mg, oral, Nightly, First dose on Tue10/06/23 at 2200 * 2133 (Given - Provider: Patsy Rivera RN) * 2152 (Given - Provider: Patsy Rivera RN) midodrine (PROAMATINE) tablet 15 mg (CANCELED) 15 mg, oral, 3 times daily, First dose (after last modification) on Tue10/07/23 at 2200, Holf for systolic>95 Look-alike/sound-alike medication - verify indication for use. * 0610 (Given - Provider: Pina Lin RN) pantoprazole (PROTONIX) EC tablet 40 mg 40 mg, oral, Every morning before breakfast, First dose on Tue10/12/23 at 0700, Look-alike/sound-alike medication - verify indication for use. If patient is receiving enteral feeding, consider alternative PPI or continue IV pantoprazole until the delayed-release tablet can be taken orally, Indication: GERD * 0629 (Given - Provider: Olga Graham RN) PARoxetine (PAXIL) tablet 10 mg 10 mg, oral, Nightly, First dose on Tue10/06/23 at 2200, Look-alike/sound-alike medication - verifyindication for use. * 213 (Given - Provider: Patsy Rivera RN) * 215 (Given - Provider: Patsy Rivera RN) sennosides-docusate sodium (SENOKOT-S) 8.6-50 mg 2 tablet 2 tablet, oral, Nightly, First dose on Tue10/06/23 at 2200 * 2133 (Given - Provider: Patsy Rivera RN) * 2200 (Not Given - Provider: Patsy Rivera RN - Reason: Patient/family refused) sodium chloride 0.9 % flush 10 mL 10 mL, intravenous, Every 96 hours, First dose on Tue10/06/23 at 0000, Hemodialysis, Arterial Lumen. Aspirate lumen and discard volume THEN 0.9% Sodium Chloride 10 mL IVP THEN 4% sodium citrate (0.2 grams/5 mL) IVP equal to lumen volume every 96 hours. (Direct Care RN: flush and change caps every 96 hours) * 0000 (Not Given - Provider: Pina Lin RN - Reason: IV infusing) sodium chloride 0.9 % flush 10 mL 10 mL, intravenous, Every 96 hours, First dose on Tue10/06/23 at 0000, Hemodialysis, Venous Lumen. Aspirate lumen and discard volume THEN 0.9% Sodium Chloride 10 mL IVP THEN 4% sodium citrate (0.2 grams/5 mL) IVP equal to lumen volume every 96 hours. (Direct Care RN: Flush and change caps every 96 hours) * 0010 (Given - Provider: Pina Lin RN) sodium citrate 4 % (3 mL) flush 2 mL 2 mL, intravenous, Every 96 hours, First dose on Shakira 10/06/23 at 0000, Hemodialysis, Arterial Lumen.IVP equal to lumen volume, up to a maximum of 2 mL, every 96 hours. (Direct Care RN: flush and change caps every 96 hours) * 0000 (Not Given - Provider: Pina Lin RN - Reason: Contraindicated) sodium citrate 4 % (3 mL) flush 2 mL 2 mL, intravenous, Every 96 hours, First dose on Shakira 10/06/23 at 0000, Hemodialysis, Venous Lumen. IVP equal to lumen volume, up to a maximum of 2 mL, every 96 hours. (Direct Care RN: flush and changecaps every 96 hours) * 0000 (Not Given - Provider: Pina Lin RN - Reason: Contraindicated) ticagrelor (BRILINTA) tablet 90 mg 90 mg, oral, Every 12 hours scheduled, First dose on Tue10/06/23 at 1030 * 0833 (Given - Provider: Gisele Peoples, BISHOP) * 2132 (Given - Provider: Patsy Rivera, RN) * 0835 (Given - Provider: Gisele Peoples, RN) * 2152 (Given - Provider: Patsy Rivera, RN) * 0812 (Given - Provider: Doug Rice RN) Medication Order10/09//// norepinephrine (LEVOPHED) infusion 8 mg/250 mL in sod chlor 0.9% (0.032 mg/mL PMX) 0.01-0.4 mcg/kg/min 106.1 kg (1.9894-79.575 mL/hr, rounded to 2-79.6 mL/hr), intravenous, Continuous, Starting on Tue10/05/23 at 1140, Preferred central line administration. Start at 0.04 mcg/kg/min.Titrate by 0.02 mcg/kg/min every 5 min to achieve systolic 100 VESICANT (RED) Requires Smart Pump., Indication: Hypotension, Sequence of Pressors - Use this medication: First, Wean Sequence: WeanSecond * 0155 (Rate/Dose Change - Provider: Pina Lin RN) * 0217 (Rate/Dose Change - Provider: Pina Lin RN) * 0447 (New Bag - Provider: Pina Lin RN) * 0459 (Rate/Dose Change - Provider: Pina Lin RN) * 0623 (Rate/Dose Verify - Provider: Pina Lin RN) * 1012 (Rate/Dose Verify - Provider: Gisele Peoples RN) * 1012 (Stop Bag - Provider: Gisele Peoples RN) sodium chloride 0.9 % infusion (CANCELED) 3 mL/hr, intravenous, Continuous, Starting on Tue10/09/23 at 1245 * 0623 (Rate/Dose Verify - Provider: Pina Lin RN) * 1012 (Rate/Dose Verify - Provider: Gisele Peoples RN) * 1013 (Rate/Dose Verify - Provider: Gisele Peoples RN) * 2006 (Stop Bag - Provider: So Mireles RCP) * 2007 (New Bag - Provider: So Mireles RCP) Medication Order10/09/// acetaminophen (TYLENOL) tablet 650 mg 650 mg, oral, Every 6 hours PRN, mild pain - pain scale 1-3, moderate pain - pain scale 4-6, Starting on Tue10/05/23 at 2052 bisacodyL (DULCOLAX) suppository 10 mg 10 mg, rectal, Daily PRN, constipation, Starting on Shakira 10/06/23 at 1306, Look-alike/sound-alike medication - verify indication for use. calcium gluconate 3,000 mg in sodium chloride 0.9 % 100 mL IVPB 3,000 mg, intravenous, at 43.3 mL/hr, Administer over 3 Hours, As needed, ionized calcium 3.5 to 3.9 mg/dL, Starting on 10/10/23 at 1344, IV Administration of calcium via a central or deep vein preferred. Avoid administration in small hand veins VESICANT (RED) calcium gluconate 4,000 mg in sodium chloride 0.9 % 250 mL IVPB 4,000 mg, intravenous, at 72.5 mL/hr, Administer over 4 Hours, As needed, ionized calcium 3.4 mg/dLor less, Starting on Tue10/10/23 at 1344, IV administration of calcium via a central or deep vein is preferred. Avoid administration in small hand veins. VESICANT (RED) calcium gluconate IVPB 2000 mg/100 mL (20 mg/mL premix) 2,000 mg, intravenous, at 50 mL/hr, Administer over 2 Hours, As needed, ionized calcium 4 to 4.3 mg/dL, Starting on Tue10/10/23 at 1344, IV Administration of calcium via a central or deep vein preferred. Avoid administration in small hand veins VESICANT (RED) dextrose (GLUTOSE) 40 % gel 15 g 15 g, oral, As needed, low blood sugar, blood glucose less than 70 mg/dL, Starting on Tue10/05/23 at 1431, If patient conscious and taking PO. If blood glucose is not greater than 70 mg/dL after initial treatment, repeat treatment. dextrose 5 % (D5W) infusion 100 mL/hr, intravenous, Continuous PRN, blood glucose less than 70 mg/dL, Starting on Tue10/05/23 at 1431, Use immediately following dextrose 50% or glucagon treatment for patients who are unconscious or NPO. Contact prescriber for additional orders. If blood glucose is not greater than 70 mg/dL after initial treatment, repeat treatment. dextrose 50 % in water (D50W) 50% solution 25 mL 25 mL, intravenous, As needed, low blood sugar, blood glucose less than 70 mg/dL and unconscious orNPO with IV access, Starting on Tue10/05/23 at 1431, Push over 1-3 minutes STAT. If conscious and not NPO, immediately follow with meal tray or high protein (7 grams) snack if tray not available. If NPO, initiate 5% dextrose in water at 100 mL/hr and contact prescriber for additional orders. If blood glucose is not greater than 70 mg/dL after initial treatment, repeat treatment. VESICANT (RED) Warning: HYPERTONIC solution. glucagon HCL injection 1 mg 1 mg, intramuscular, As needed, low blood sugar, blood glucose less than 70 mg/dL and unconscious or NPO without IV access., Starting on Tue10/05/23 at 1431, If conscious and not NPO, immediately follow with meal tray or high protein (7Grams) snack if tray not available. If NPO, initiate IV 5% Dextr ose/Water at 100 mL/hr and contact prescriber for additional orders. If blood glucose is not greater than 70 mg/dL after initial treatment, repeat treatment. hydrOXYzine (ATARAX) tablet 25 mg 25 mg, oral, 3 times daily PRN, itching, Starting on Tue10/07/23 at 0242, Look-alike/sound-alike medication - verify indication for use. * 0122 (Given - Provider: Olga Graham RN) magnesium sulfate IVPB 2000 mg/50 mL in iso-osmotic water (40 mg/mL premix) (Linked Group 1) 2,000 mg, intravenous, at 25 mL/hr, Administer over 120 Minutes, As needed, for magnesium level 1.7to 1.9 mg/dL or ionized magnesium level 0.45 to 0.5 mmol/L, Starting on Tue10/05/23 at 1431, Use premix solution. Default to ionized magnesium level in cases where patient has both magnesium and ionized magnesium results. If administered, check ionized magnesium (or total magnesium if ionized magnesium unavailable) level 4 hours after infusion. * 0458 (See Alternative - Provider: Pina Lin RN) * 0623 (See Alternative - Provider: Pina Lin RN) * 0858 (See Alternative - Provider: Gisele Peoples, BISHOP) * 0632 (See Alternative - Provider: Olga Graham RN) * 1032 (See Alternative - Provider: Doug Rice RN) magnesium sulfate IVPB 4000 mg/100 mL in iso-osmotic water (40 mg/mL premix) (Linked Group 1) 4,000 mg, intravenous, at 25 mL/hr, Administer over 240 Minutes, As needed, for magnesium level 1.6mg/mL or less, or ionized magnesium level 0.44 mmol/L or less, Starting on Tue10/05/23 at 1431, Usepremix solution. Default to ionized magnesium level in cases where patient has both magnesium and ionized magnesium results. If administered, check ionized magnesium (or total magnesium if ionized magnesium unavailable) level 4 hours after infusion. * 0458 (New Bag - Provider: Pina Lin, RN) * 0623 (Rate/Dose Verify - Provider: Pina Lin RN) * 0858 (Stop Bag - Provider: Gisele ePoples, BISHOP) * 0632 (New Bag - Provider: Olga Graham, BISHOP) * 1032 (Stop Bag - Provider: Doug Rice, BISHOP) ondansetron (PF) (ZOFRAN) injection 4 mg 4 mg, intravenous, Every 6 hours PRN, nausea, vomiting, Starting on Tue10/06/23 at 0307, Administerover 2-5 minutes. oxyCODONE (ROXICODONE) immediate release tablet 5 mg 5 mg, oral, Every 6 hours PRN, moderate pain - pain scale 4-6, severe pain - pain scale 7-10, Starting on Tue10/06/23 at 1954, Look-alike/sound-alike medication - verify indication for use. Immediaterelease. phenoL (CHLORASEPTIC) 1.4 % spray 1 spray 1 spray, mucous membrane, Every 2 hour PRN, sore throat, Starting on Tue10/09/23 at 0051 polyethylene glycol (GLYCOLAX) packet 17 g 17 g, oral, Daily PRN, constipation, Starting on Tue10/06/23 at 1306, Look-alike/sound-alike medication - verify indication for use. Dissolve 1 packet (17 gm) in 8 ounces of water, juice, soda, coffee or tea. potassium chloride (K-TAB,KLOR-CON) CR tablet 20-40 mEq (CANCELED) 20-40 mEq, oral, As needed, for potassium replacement, Starting on Tue10/05/23 at 1431, Progress tooral potassium replacement when patient tolerating oral intake. If dose administered, recheck potassium level 4 hours after last dose. For potassium level 3.4 to 3.8 mmol/L and Serum Creatinine 1.2 or less=30 mEq. For potassium level 3.1 to 3.3 mmol/L and Serum Creatinine 1.2 or less=40 mEq. For potassium level 3 mmol/L or less and Serum Creatinine 1.2 or less=50 mEq. For potassium level 3.4 to 3.8 mmol/L and Serum Creatinine greater than 1.2=20 mEq. For potassium level 3.1 to 3.3 mmol/L and Serum Creatinine greater than 1.2=30 mEq. For potassium level 3 mmol/L or less and Serum Creatinine greater than 1.2=40 mEq. Do not crush or chew. * 0832 (Given - Provider: Gisele Peoples RN - Comment: K+ 3.8) potassium chloride (K-TAB,KLOR-CON) CR tablet 20-60 mEq(Linked Group 2) 20-60 mEq, oral, As needed, for potassium replacement, Starting on Tue10/10/23 at 1341, Progress tooral potassium replacement when patient tolerating oral intake. If dose administered, recheck potassium level 4 hours after last dose. For potassium level 3.4 to 3.7 mmol/L =20 mEq. For potassium level 3.1 to 3.3 mmol/L =40 mEq. For potassium level 3 mmol/L or less =60 mEq. Do not crush or chew. * 0615 (Given - Provider: Patsy Rivera RN) * 0628 (Given - Provider: Olga Graham RN) potassium chloride (KAYCIEL) 20 mEq/15 mL solution 20-60 mEq(Linked Group 2) 20-60 mEq, oral, As needed, potassium replacement, Starting on Tue10/10/23 at 1341, Progress to oral potassium replacement when patient tolerating oral intake. If dose administered, recheck potassiumlevel 4 hours after last dose. For potassium level 3.4 to 3.7 mmol/L =20 mEq. For potassium level 3.1 to 3.3 mmol/L =40 mEq. For potassium level 3 mmol/L or less =60 mEq. Must dilute before use - Mixin 3-8 ounces of water or juice before administration When administering in feeding tube, flush before and after per policy and monitor potassium levels * 0615 (See Alternative - Provider: Patsy Rivera RN) * 0628 (See Alternative - Provider: Olga Graham RN) potassium chloride IVPB 10 mEq/100 mL in water (0.1 mEq/mL premix)(Linked Group 3) 10 mEq, intravenous, at 100 mL/hr, Administer over 60 Minutes, As needed, for potassium replacement, Starting on Tue10/05/23 at 1431, Administer Potassium Chloride IVPB in 10 mEq increments. Maximum infusion rates: Central Line = 20 mEq/hour; Peripheral Line = 10 mEq/hour (10 mEq/100 mL). If dose administered, recheck potassium level 1 hour after infusion complete. For potassium level 3.4 to 3.7 mmol/L =20 mEq. For potassium level 3.1 to 3.3 mmol/L =40 mEq. For potassium level 3 mmol/L or less =60 mEq. VESICANT (YELLOW) Infuse each 10 mEq over a minimum of 1 hour. potassium chloride IVPB 10 mEq/50 mL in water (0.2 mEq/mL premix)(Linked Group 3) 10 mEq, intravenous, at 50 mL/hr, Administer over 1 Hours, As needed, for potassium replacement, Starting on Tue10/05/23 at 1431, Administer Potassium Chloride IVPB in 10 mEq increments. Maximum infusion rates: Central Line = 20 mEq/hour. Administer via Central Line Only. If dose administered, recheck potassium level 1 hour after infusion complete. For potassium level 3.4 to 3.7 mmol/L =20 mEq. For potassium level 3.1 to 3.3 mmol/L =40 mEq. For potassium level 3 mmol/L or less =60 mEq. VESICANT (YELLOW) simethicone (MYLICON) chewable tablet 80 mg 80 mg, oral, 4 times daily PRN, flatulence, Starting on Tue10/06/23 at 2217 sod phos di, mono-K phos mono (K-PHOS NEUTRAL) 250 mg tablet 2 tablet(Linked Group 4) 2 tablet, oral, As needed, for phosphorous level 2.3 mg/dL or less. Do not administer if potassium is more than 4.5, Starting on Tue10/10/23 at 1341, If dose administered, recheck phosphorus level 4 hours after last dose. Look-alike/sound-alike medication - verify indication for use. Give with a full glass of water. * 0628 (Given - Provider: Olga Graham, BISHOP) sodium chloride 0.9 % bolus 150 mL, intravenous, at 600 mL/hr, Administer over 15 Minutes, Every 5 min PRN, Hypotension during Hemodialysis, Starting on Tue10/05/23 at 1734, For 3 doses, Hemodialysis, For systolic blood pressure 100 mmHg or less. Notify physician if no response following 3rd bolus. sodium chloride 0.9 % flush 10 mL 10 mL, intravenous, As needed, line care, Starting on Tue10/05/23 at 2130, Hemodialysis, Arterial Lumen. Before use aspirate lumen and discard lumen volume THEN 0.9% Sodium Chloride 10 mL IVP. (skiing teacher: flush at beginning of each hemodialysis treatment). sodium chloride 0.9 % flush 10 mL 10 mL, intravenous, As needed, line care, Starting on Tue10/05/23 at 2130, Hemodialysis, Arterial Lumen. 0.9% Sodium Chloride 10 mL IVP THEN 4% sodium citrate (0.2 grams/5 mL) IVP equal to lumen volume after use. (skiing teacher: flush and change caps after each hemodialysis treatment) sodium chloride 0.9 % flush 10 mL 10 mL, intravenous, As needed, line care, Starting on Tue10/05/23 at 2130, Hemodialysis, Venous Lumen. Before use aspirate lumen and discard lumen volume THEN 0.9% Sodium Chloride 10 mL IVP. (skiing teacher: flush at beginning of each hemodialysis treatment) sodium chloride 0.9 % flush 10 mL 10 mL, intravenous, As needed, line care, Starting on Tue10/05/23 at 2130, Hemodialysis, Venous Lumen. 0.9% Sodium Chloride 10 mL IVP THEN 4% sodium citrate (0.2 grams/5 mL) IVP equal to lumen volumeafter use. (skiing teacher: flush and change caps after each hemodialysis treatment) sodium chloride 0.9 % infusion 10 mL/hr, intravenous, Continuous PRN, to maintain patency of lines, Starting on Tue10/05/23 at 1431, Line #1 sodium chloride 0.9 % infusion 10 mL/hr, intravenous, Continuous PRN, to maintain patency of lines, Starting on Tue10/05/23 at 1431, Line #2 sodium chloride 0.9 % infusion 10 mL/hr, intravenous, Continuous PRN, to maintain patency of lines, Starting on Tue10/05/23 at 1431, Line #3 * 0458 (Stop Bag - Provider: Pina Lin RN) * 0858 (Restarted - Provider: Gisele Peoples, BISHOP) * 1012 (Rate/Dose Verify - Provider: Gisele Peoples RN) * 1013 (Rate/Dose Verify - Provider: Gisele Peoples, RN) * 0925 (New Bag - Provider: Gisele Peoples RN) sodium chloride 0.9 % infusion 20 mL/hr, intravenous, Continuous PRN, per policy for blood product transfusion, Starting on Tue10/11/23 at 0340, For 24 hours, Initiate prior to blood product transfusion. Continue before and after each blood product transfusion. Discontinue upon completion of blood product transfusion(s). sodium citrate 4 % (3 mL) flush 2 mL 2 mL, intravenous, As needed, line care, Starting on Tue10/05/23 at 2130, Hemodialysis, Arterial Lumen. IVP equal to lumen volume, up to a maximum of 2 mL, after use. (skiing teacher: flush and change caps after each hemodialysis treatment) sodium citrate 4 % (3 mL) flush 2 mL 2 mL, intravenous, As needed, line care, Starting on Tue10/05/23 at 2130, Hemodialysis, Venous Lumen. IVP equal to lumen volume, up to a maximum of 2 mL, after use. (skiing teacher: flush and changecaps after each hemodialysis treatment) sodium phosphate 20 mmol in sodium chloride 0.9 % 100 mL IVPB(Linked Group 4) 20 mmol, intravenous, at 26.7 mL/hr, Administer over 4 Hours, As needed, for phosphorous level 2.3 mg/dL or less, Starting on Tue10/10/23 at 1341, Administer over 4 hours via dedicated line(central line). If administered, recheck phosphorus level 4 hours after infusion complete. Infuse using central line access. * 0628 (See Alternative - Provider: Olga Graham RN) sodium phosphate 20 mmol in sodium chloride 0.9 % 250 mL IVPB(Linked Group 4) 20 mmol, intravenous, at 42.8 mL/hr, Administer over 6 Hours, As needed, for phosphorous level 2.3 mg/dL or less, Starting on Tue10/10/23 at 1341, Administer over 6 hours via dedicated line (peripheral line). If administered, recheck phosphorus level 4 hours after infusion complete. * 0628 (See Alternative - Provider: Olga Graham RN) Order Group 1: magnesium sulfate IVPB 2000 mg/50 mL in iso-osmotic water (40 mg/mL premix)Jump to med 2,000 mg, intravenous, at 25 mL/hr, Administer over 120 Minutes, As needed, for magnesium level 1.7to 1.9 mg/dL or ionized magnesium level 0.45 to 0.5 mmol/L, Starting on Tue10/05/23 at 1431, Use premix solution. Default to ionized magnesium level in cases where patient has both magnesium and ionized magnesium results. If administered, check ionized magnesium (or total magnesium if ionized magnesium unavailable) level 4 hours after infusion. Or magnesium sulfate IVPB 4000 mg/100 mL in iso-osmotic water (40 mg/mL premix)Jump to med 4,000 mg, intravenous, at 25 mL/hr, Administer over 240 Minutes, As needed, for magnesium level 1.6mg/mL or less, or ionized magnesium level 0.44 mmol/L or less, Starting on Tue10/05/23 at 1431, Usepremix solution. Default to ionized magnesium level in cases where patient has both magnesium and ionized magnesium results. If administered, check ionized magnesium (or total magnesium if ionized magnesium unavailable) level 4 hours after infusion. Group 2: potassium chloride (K-TAB,KLOR-CON) CR tablet 20-60 mEqJump to med 20-60 mEq, oral, As needed, for potassium replacement, Starting on Tue10/10/23 at 1341, Progress tooral potassium replacement when patient tolerating oral intake. If dose administered, recheck potassium level 4 hours after last dose. For potassium level 3.4 to 3.7 mmol/L =20 mEq. For potassium level 3.1 to 3.3 mmol/L =40 mEq. For potassium level 3 mmol/L or less =60 mEq. Do not crush or chew. Or potassium chloride (KAYCIEL) 20 mEq/15 mL solution 20-60 mEqJump to med 20-60 mEq, oral, As needed, potassium replacement, Starting on Tue10/10/23 at 1341, Progress to oral potassium replacement when patient tolerating oral intake. If dose administered, recheck potassiumlevel 4 hours after last dose. For potassium level 3.4 to 3.7 mmol/L =20 mEq. For potassium level 3.1 to 3.3 mmol/L =40 mEq. For potassium level 3 mmol/L or less =60 mEq. Must dilute before use - Mixin 3-8 ounces of water or juice before administration When administering in feeding tube, flush before and after per policy and monitor potassium levels Group 3: potassium chloride IVPB 10 mEq/50 mL in water (0.2 mEq/mL premix)Jump to med 10 mEq, intravenous, at 50 mL/hr, Administer over 1 Hours, As needed, for potassium replacement, Starting on Tue10/05/23 at 1431, Administer Potassium Chloride IVPB in 10 mEq increments. Maximum infusion rates: Central Line = 20 mEq/hour. Administer via Central Line Only. If dose administered, recheck potassium level 1 hour after infusion complete. For potassium level 3.4 to 3.7 mmol/L =20 mEq. For potassium level 3.1 to 3.3 mmol/L =40 mEq. For potassium level 3 mmol/L or less =60 mEq. VESICANT (YELLOW) Or potassium chloride IVPB 10 mEq/100 mL in water (0.1 mEq/mL premix)Jump to med 10 mEq, intravenous, at 100 mL/hr, Administer over 60 Minutes, As needed, for potassium replacement, Starting on Tue10/05/23 at 1431, Administer Potassium Chloride IVPB in 10 mEq increments. Maximum infusion rates: Central Line = 20 mEq/hour; Peripheral Line = 10 mEq/hour (10 mEq/100 mL). If dose administered, recheck potassium level 1 hour after infusion complete. For potassium level 3.4 to 3.7 mmol/L =20 mEq. For potassium level 3.1 to 3.3 mmol/L =40 mEq. For potassium level 3 mmol/L or less =60 mEq. VESICANT (YELLOW) Infuse each 10 mEq over a minimum of 1 hour. Group 4: sodium phosphate 20 mmol in sodium chloride 0.9 % 250 mL IVPBJump to med 20 mmol, intravenous, at 42.8 mL/hr, Administer over 6 Hours, As needed, for phosphorous level 2.3 mg/dL or less, Starting on Tue10/10/23 at 1341, Administer over 6 hours via dedicated line (peripheral line). If administered, recheck phosphorus level 4 hours after infusion complete. Or sodium phosphate 20 mmol in sodium chloride 0.9 % 100 mL IVPBJump to med 20 mmol, intravenous, at 26.7 mL/hr, Administer over 4 Hours, As needed, for phosphorous level 2.3 mg/dL or less, Starting on Tue10/10/23 at 1341, Administer over 4 hours via dedicated line(central line). If administered, recheck phosphorus level 4 hours after infusion complete. Infuse using central line access. Or sod phos di, mono-K phos mono (K-PHOS NEUTRAL) 250 mg tablet 2 tabletJump to med 2 tablet, oral, As needed, for phosphorous level 2.3 mg/dL or less. Do not administer if potassium is more than 4.5, Starting on Tue10/10/23 at 1341, If dose administered, recheck phosphorus level 4 hours after last dose. Look-alike/sound-alike medication - verify indication for use. Give with a full glass of water. Medication Order//05/2023 albuterol (PROVENTIL,VENTOLIN) nebulizer solution 2.5 mg (COMPLETED) 2.5 mg, nebulization, Once, On Tue10/25/23 at 1045, For 1 dose, PACU (only), Implement INPATIENT/ED Bronchodilator Clinical Practice Guidelines? No * 1049 (Given - Provider: Javid Rousseau RCP) atorvastatin (LIPITOR) tablet 20 mg 20 mg, oral, Nightly, First dose on Tue10/20/23 at 2200, Look-alike/sound-alike medication - verifyindication for use. * 2258 (Given - Provider: Kianna Fonseca RN) * 1012 (APR Hold - Provider: Automatic Transfer Provider - Reason: Patient not available) * 110 (APR Unhold - Provider: Automatic Transfer Provider) * 2015 (Given - Provider: Ingrid Dunn RN) * 2200 (Due) famotidine (PF) (PEPCID) injection 20 mg 20 mg, intravenous, Every 24 hours, First dose on Tue10/20/23 at 2100, Dilute to total volume of 5 mL with 0.9% sod chl and administer IVP over 2 minutes. * 225 (Given - Provider: Kianna Fonseca RN) * 1012 (APR Hold - Provider: Automatic Transfer Provider - Reason: Patient not available) * 1107 (APR Unhold - Provider: Automatic Transfer Provider) * 2015 (Given - Provider: Ingrid Dunn RN) * 2100 (Due) insulin lispro (HumaLOG) injection 2-10 Units 2-10 Units, subcutaneous, 3 times daily with meals, First dose on Tue10/20/23 at 0915, Daytime hyperglycemia dosing. For blood glucose 151-200 mg/dL, give 2 units. For blood glucose 201-250 mg/dL, give 4 units. For blood glucose 251-300 mg/dL, give 6 units. For blood glucose 301-350 mg/dL, give 8 units. For blood glucose 351-400 mg/dL, give 10 units. Give even if NPO or meals skipped. Do NOT givemore often then every 4 hours when NPO. Notify prescriber if blood glucose greater than 400 mg/dL. Look-alike/sound-alike medication - verify indication for use. Prime with 2 units of insulin prior to administration. Prandial/supplemental Insulin. Pre-filled pens stable 28 days at room temperature.Insulin lispro should be administered within 15 minutes before or immediately after a meal. * 0800 (Not Given - Provider: Natalie Montelongo RN - Reason: Order parameters not met) * 1200 (Not Given - Provider: Natalie Montelongo RN - Reason: Order parameters not met) * 1700 (Not Given - Provider: Natalie Montelongo RN - Reason: Order parameters not met) * 0800 (Not Given - Provider: Karen Rodas RN - Reason: Order parameters not met - Comment: bs [id number]) * 1012 (MAR Hold - Provider: Automatic Transfer Provider - Reason: Patient not available) * 1107 (MAR Unhold - Provider: Automatic Transfer Provider) * 1200 (Not Given - Provider: Karen Rodas RN - Reason: Order parameters not met - Comment: Bs 98) * 1700 (Not Given - Provider: Karen Rodas RN - Reason: Order parameters not met) * 0800 (Due) * 1200 (Due) * 1700 (Due) insulin lispro (HumaLOG) injection 2-8 Units 2-8 Units, subcutaneous, Nightly, First dose on Tue10/20/23 at 2200, Bedtime hyperglycemia dosing. For blood glucose 201-250 mg/dL, give 2 units. For blood glucose 251-300 mg/dL, give 4 units. For blood glucose 301-350 mg/dL, give 6 units. For blood glucose 351-400 mg/dL, give 8 units. Give even ifNPO or meals skipped. Do NOT give more often then every 4 hours when NPO. Notify prescriber if blood glucose greater than 400 mg/dL. Look-alike/sound-alike medication - verify indication for use. Prime with 2 units of insulin prior to administration. Prandial/supplemental Insulin. Pre-filled pens stable 28 days at room temperature. Insulin lispro should be administered within 15 minutes before orimmediately after a meal. * 2200 (Not Given - Provider: Kianna Fonseca RN - Reason: Order parameters not met) * 1012 ([facility] Hold - Provider: Automatic Transfer Provider - Reason: Patient not available) * 1107 ([facility] Unhold - Provider: Automatic Transfer Provider) * 2200 (Not Given - Provider: Ingrid Dunn RN - Reason: Order parameters not met) * 2200 (Due) metoprolol succinate XL (TOPROL XL) 24 hr tablet 25 mg 25 mg, oral, Daily, First dose on Tue10/20/23 at 1300, Look-alike/sound-alike medication - verify indication for use. Do not crush or chew. * 0829 (Given - Provider: Natalie Montelongo RN) * 1012 ([facility] Hold - Provider: Automatic Transfer Provider - Reason: Patient not available) * 1107 ([facility] Unhold - Provider: Automatic Transfer Provider) * 1639 (Given - Provider: Karen Rodas, BISHOP) * 0900 (Due) sodium chloride 0.9 % flush 3 mL 3 mL, intravenous, Every 12 hours scheduled, First dose on Tue10/20/23 at 0915 * 0900 (Given - Provider: Natalie Montelongo RN) * 2100 (Not Given - Provider: Kianna Fonseca RN - Reason: IV infusing) * 0900 (Not Given - Provider: Karen Rodas, BISHOP - Reason: Other) * 1012 ([facility] Hold - Provider: Automatic Transfer Provider - Reason: Patient not available) * 1107 ([facility] Unhold - Provider: Automatic Transfer Provider) * 2016 (Given - Provider: Ingrid Dunn, BISHOP) * 0900 (Due) * 2100 (Due) ticagrelor (BRILINTA) tablet 90 mg 90 mg, oral, Every 12 hours scheduled, First dose on Tue10/20/23 at 2100 * 0830 (Given - Provider: Natalie Montelongo RN) * 2258 (Given - Provider: Kianna Fonseca RN) * 1012 ([facility] Hold - Provider: Automatic Transfer Provider - Reason: Patient not available) * 1107 ([facility] Unhold - Provider: Automatic Transfer Provider) * 1639 (Given - Provider: Karen Rodas, BISHOP) * 2100 (Not Given - Provider: Ingrid Dunn RN - Reason: Other - Comment: given 163) * 0900 (Due) * 2100 (Due) Medication Order10/23///05/2023 heparin infusion 41741 units/500 mL in 0.45% NaCl (50 units/mL premix) 300-3,500 Units/hr (6-70 mL/hr), intravenous, Continuous, Starting on Shakira 10/20/23 at 1700, Please titrate from initial infusion rate: 1600 units/hr Please titrate from infusion rate listed above. MAXIMUM Initial Infusion: 2100 units/hr. Heparin High-Intensity Infusion (Non-Cardiology) Heparin Adjustment Table: Anti-Xa Therapeutic Goal: 0.3 - 0.7 IU/mL Anti-Xa results (IU/mL): Anti- Xa every 6 hours after dosage adjustment until therapeutic x 2 then every AM - less than 0.2 IU/mL: bolus 5000 units, increase rate by 150 units/hr (3 mL/hr), next Anti-Xa in 6 hrs. -0.2 - 0.29 IU/mL: increase rate by 100 units/hr (2 mL/hr), next Anti-Xa in 6 hours. -0.3 - 0.7 IU/mL:Therapeutic level: next Anti- Xa in 6 hours then every AM. -0.71 - 0.8 IU/mL: decrease rate by 50 units/hr (1 mL/hr), next Anti-Xa in6 hours. -0.81 - 1.6 IU/mL : stop infusion for 30 minutes, decrease rate by 100 units/hr (2 mL/hr),next Anti-Xa in 6 hours. -1.61 - 2 IU/mL: stop infusion for 60 minutes, decrease rate by 150 units/hr (3 mL/hr), next Anti-Xa in 6 hours. - Greater than 2 IU/mL: stop infusion for 90 minutes, decrease rate by 250 units/hr (5 mL/hr), next Anti-Xa in 6 hours. Monitor for signs of bleeding. Look-alike/sound-alike medication - verify indication for use., Indication: Pulmonary Embolism, INITIAL Infusion Dose (Units/hr): 1600 units/hr * 0015 (Paused - Provider: Kianna Fonseca, RN) * 0043 (Restarted - Provider: Kianna Fonseca, RN) * 0054 (Paused - Provider: Kianna Fonseca, RN) * 0100 (Restarted - Provider: Kianna Fonseca RN) * 0101 (Paused - Provider: Kianna Fonseca, RN) * 0103 (Paused - Provider: Kianna Fonseca, RN) * 0103 (Restarted - Provider: Kianna Fonseca, RN) * 0335 (Paused - Provider: Kianna Fonseca, RN) * 0338 (Restarted - Provider: Kianna Fonseca, RN) * 0708 (Handoff - Provider: Kianna Fonseca, RN) * 0723 (Paused - Provider: Kianna Fonseca, RN) * 0739 (Restarted - Provider: Kianna Fonseca, BISHOP) * 0915 (Paused - Provider: Kianna Fonseca, RN) * 0920 (Restarted - Provider: Kianna Fonseca, RN) * 1900 (Handoff - Provider: Kianna Fonseca, RN) * 1936 (Paused - Provider: Kianna Fonseca, RN) * 1944 (Restarted - Provider: Kianna Fonseca, RN) * 2339 (Paused - Provider: Kianna Fonseca, RN) * 0441 (Restarted - Provider: Kianna Fonseca, RN) * 0441 (Rate/Dose Verify - Provider: Kianna Fonseca RN) * 0539 (Paused - Provider: Kianna Fonseca, RN) * 0545 (Restarted - Provider: Kainna Fonseca, RN) * 0554 (Rate/Dose Verify - Provider: Kianna Fonseca, RN) * 0555 (Stop Bag - Provider: Kianna Fonseca, RN) * 0555 (New Bag - Provider: Kianna Fonseca, RN) * 0556 (Rate/Dose Verify - Provider: Kianna Fonseca, RN) * 0708 (Stop Bag - Provider: Kianna Fonseca, RN) * 1012 ([facility] Hold - Provider: Automatic Transfer Provider - Reason: Patient not available) * 1107 ([facility] Unhold - Provider: Automatic Transfer Provider) * 1633 (New Bag - Provider: Karen Rodas, RN) * 1919 (Handoff - Provider: Ingrid Dunn, RN) * 7509 (Rate/Dose Change - Provider: Ingrid Dunn RN) Medication Order//05/2023 acetaminophen (TYLENOL) tablet 650 mg 650 mg, oral, Every 4 hours PRN, Temperature greater than 38.3 C, Starting on Shakira 10/20/23 at 0857, [Warning: Total Acetaminophen not to exceed more than 4 grams (4000 mg) in 24 hours] * 1012 ([facility] Hold - Provider: Automatic Transfer Provider - Reason: Patient not available) * 1107 ([facility] Unhold - Provider: Automatic Transfer Provider) dextrose (GLUTOSE) 40 % gel 15 g 15 g, oral, As needed, low blood sugar, blood glucose less than 70 mg/dL, Starting on Shakira 10/20/23 at 0857, If patient conscious and taking PO. If blood glucose is not greater than 70 mg/dL after initial treatment, repeat treatment. * 1012 ([facility] Hold - Provider: Automatic Transfer Provider - Reason: Patient not available) * 1107 ([facility] Unhold - Provider: Automatic Transfer Provider) dextrose 50 % in water (D50W) 50% solution 25 mL 25 mL, intravenous, As needed, low blood sugar, blood glucose less than 70 mg/dL and unconscious orNPO with IV access, Starting on Shakira 10/20/23 at 0857, Push over 1-3 minutes STAT. If conscious and not NPO, immediately follow with meal tray or high protein (7 grams) snack if tray not available. If NPO, initiate 5% dextrose in water at 100 mL/hr and contact prescriber for additional orders. If blood glucose is not greater than 70 mg/dL after initial treatment, repeat treatment. VESICANT (RED) Warning: HYPERTONIC solution. * 1012 ([facility] Hold - Provider: Automatic Transfer Provider - Reason: Patient not available) * 1107 ([facility] Unhold - Provider: Automatic Transfer Provider) glucagon HCL injection 1 mg 1 mg, intramuscular, As needed, low blood sugar, blood glucose less than 70 mg/dL and unconscious or NPO without IV access., Starting on Shakira 10/20/23 at 0857, If conscious and not NPO, immediately follow with meal tray or high protein (7Grams) snack if tray not available. If NPO, initiate IV 5% Dextr ose/Water at 100 mL/hr and contact prescriber for additional orders. If blood glucose is not greater than 70 mg/dL after initial treatment, repeat treatment. * 1012 ([facility] Hold - Provider: Automatic Transfer Provider - Reason: Patient not available) * 1107 ([facility] Unhold - Provider: Automatic Transfer Provider) heparin (porcine) injection 5,000 Units 5,000 Units, intravenous, As needed, for Anti-Xa less than 0.2 IU/mL, Starting on Shakira 10/20/23 at 1638, Look-alike/sound-alike medication - verify indication for use. Observe for bleeding. * 1012 ([facility] Hold - Provider: Automatic Transfer Provider - Reason: Patient not available) * 1107 ([facility] Unhold - Provider: Automatic Transfer Provider) HYDROcodone-acetaminophen (NORCO) 5-325 mg per tablet 1 tablet 1 tablet, oral, Every 6 hours PRN, moderate pain - pain scale 4-6, severe pain - pain scale 7-10, mild pain - pain scale 1-3, Starting on Shakira 10/20/23 at 1911, Look-alike/sound-alike medication - verify indication for use. * 0741 (Given - Provider: Kianna Fonseca, RN) * 1812 (Given - Provider: Natalie Montelongo, RN) * 2258 (Given - Provider: Kianna Fonseca, RN) * 0552 (Given - Provider: Kianna Fonseca, RN) * 1012 ([facility] - Provider: Automatic Transfer Provider - Reason: Patient not available) * 1107 ([facility] Unhold - Provider: Automatic Transfer Provider) * 1639 (Given - Provider: Karen Rodas, RN) * 2239 (Given - Provider: Ingrid Dunn, BISHOP) magnesium sulfate IVPB 2000 mg/50 mL in iso-osmotic water (40 mg/mL premix) 2,000 mg, intravenous, at 25 mL/hr, Administer over 120 Minutes, As needed, Magnesium level 1.7 to 1.9 mg/dL, or Ionized Magnesium level 0.45 to 0.5 mmol/L., Starting on Shakira 10/20/23 at 0857, Recheck magnesium level 4 hours after infusion complete. With each magnesium result continue the replacementorders as needed. * 1012 ([facility] Hold - Provider: Automatic Transfer Provider - Reason: Patient not available) * 1107 ([facility] Unhold - Provider: Automatic Transfer Provider) * 1955 (New Bag - Provider: Ingrid Dunn, RN) * 2155 (Stop Bag - Provider: Ingrid Dunn, RN) magnesium sulfate IVPB 4000 mg/100 mL in iso-osmotic water (40 mg/mL premix) 4,000 mg, intravenous, at 25 mL/hr, Administer over 240 Minutes, As needed, Magnesium level 1.6 mg/dL or less, or Ionized Magnesium level 0.44 mmol/L or less, Starting on Shakira 10/20/23 at 0857, Recheckmagnesium level 4 hours after infusion complete. With each magnesium result continue the replacement orders as needed. * 1012 ([facility] Hold - Provider: Automatic Transfer Provider - Reason: Patient not available) * 1107 ([facility] Unhold - Provider: Automatic Transfer Provider) ondansetron (PF) (ZOFRAN) injection 4 mg 4 mg, intravenous, Every 8 hours PRN, nausea, vomiting, Starting on Shakira 10/20/23 at 0857, Administerover 2-5 minutes. * 1012 ([facility] Hold - Provider: Automatic Transfer Provider - Reason: Patient not available) * 1107 ([facility] Unhold - Provider: Automatic Transfer Provider) potassium chloride (K-TAB,KLOR-CON) CR tablet 30-40 mEq(Linked Group 1) 30-40 mEq, oral, As needed, potassium supplementation, Starting on Shakira 10/20/23 at 0857, Progress tooral potassium replacement when patient tolerating oral intake. If dose administered, recheck potassium level 4 hours after last dose. For potassium level 3.4 to 3.8 mmol/L and GFR 30 mL/min or greater=30 mEq. For potassium level 3.1 to 3.3 mmol/L and GFR 30 mL/min or greater=40 mEq. For potassium level 3 mmol/L or less and GFR 30 mL/min or greater=50 mEq. Do not crush or chew. * 1012 ([facility] Hold - Provider: Automatic Transfer Provider - Reason: Patient not available) * 1107 ([facility] Unhold - Provider: Automatic Transfer Provider) potassium chloride (KAYCIEL) 20 mEq/15 mL solution 30-40 mEq(Linked Group 1) 30-40 mEq, oral, As needed, potassium supplementation, Starting on Shakira 10/20/23 at 0857, Progress tooral potassium replacement when patient tolerating oral intake. If dose administered, recheck potassium level 4 hours after last dose. For potassium level 3.4 to 3.8 mmol/L and GFR 30 mL/min or greater=30 mEq. For potassium level 3.1 to 3.3 mmol/L and GFR 30 mL/min or greater=40 mEq. For potassium level 3 mmol/L or less and GFR 30 mL/min or greater=50 mEq. Must dilute before use - Mix in 3-8 ounces of water or juice before administration When administering in feeding tube, flush before and after per policy and monitor potassium levels * 1012 ([facility] Hold - Provider: Automatic Transfer Provider - Reason: Patient not available) * 1107 ([facility] Unhold - Provider: Automatic Transfer Provider) sodium chloride 0.9 % flush 3 mL 3 mL, intravenous, As needed, line care, before and after each intermittent use, Starting on Shakira 10/20/23 at 0857 * 1012 ([facility] Hold - Provider: Automatic Transfer Provider - Reason: Patient not available) * 1107 ([facility] Unhold - Provider: Automatic Transfer Provider) sodium chloride 0.9 % flush bag 25 mL, intravenous, at 100 mL/hr, Administer over 15 Minutes, As needed, line care, line care afterIVPB administration, Starting on Shakira 10/20/23 at 0857 * 1012 ([facility] Hold - Provider: Automatic Transfer Provider - Reason: Patient not available) * 1107 ([facility] Unhold - Provider: Automatic Transfer Provider) sodium chloride 0.9 % infusion 20 mL/hr, intravenous, Continuous PRN, to maintain patency of lines, Starting on Shakira 10/20/23 at 0857 * 0602 (New Bag - Provider: Kianna Fonseca RN) * 1012 ([facility] Hold - Provider: Automatic Transfer Provider - Reason: Patient not available) * 1107 ([facility] Unhold - Provider: Automatic Transfer Provider) Order Group 1: potassium chloride (K-TAB,KLOR-CON) CR tablet 30-40 mEqJump to med 30-40 mEq, oral, As needed, potassium supplementation, Starting on Shakira 10/20/23 at 0857, Progress tooral potassium replacement when patient tolerating oral intake. If dose administered, recheck potassium level 4 hours after last dose. For potassium level 3.4 to 3.8 mmol/L and GFR 30 mL/min or greater=30 mEq. For potassium level 3.1 to 3.3 mmol/L and GFR 30 mL/min or greater=40 mEq. For potassium level 3 mmol/L or less and GFR 30 mL/min or greater=50 mEq. Do not crush or chew. Or potassium chloride (KAYCIEL) 20 mEq/15 mL solution 30-40 mEqJump to med 30-40 mEq, oral, As needed, potassium supplementation, Starting on Shakira 10/20/23 at 0857, Progress tooral potassium replacement when patient tolerating oral intake. If dose administered, recheck potassium level 4 hours after last dose. For potassium level 3.4 to 3.8 mmol/L and GFR 30 mL/min or greater=30 mEq. For potassium level 3.1 to 3.3 mmol/L and GFR 30 mL/min or greater=40 mEq. For potassium level 3 mmol/L or less and GFR 30 mL/min or greater=50 mEq. Must dilute before use - Mix in 3-8 ounces of water or juice before administration When administering in feeding tube, flush before and after per policy and monitor potassium levels Medication Order/ atorvastatin (LIPITOR) tablet 20 mg 20 mg, Oral, DAILY, First dose on Tue11/14/24 at 0900, Until Discontinued, Substituted for Simvastatin (ZOCOR). * 0829 (Given - Provider: Cathie Koch RN) cefdinir (OMNICEF) capsule 300 mg (COMPLETED) 300 mg, Oral, Once, 1 dose, On Tue11/13/24 at 2130, Antimicrobial Indications: Urinary Tract Infection, UTI duration of therapy: 10 days, Substituted for Cefpodoxime (VANTIN). * 7548 (Given - Provider: Angle Patricio RN) FLUoxetine (PROZAC) capsule 20 mg 20 mg, Oral, DAILY, First dose on Tue11/14/24 at 0900, Until Discontinued * 0829 (Given - Provider: Cathie Koch RN) ketorolac (TORADOL) injection 15 mg (COMPLETED) 15 mg, IntraVENous, Once, 1 dose, On Tue11/13/24 at 1945, Do not administer for more than 5 days * 1956 (Given - Provider: Kael Emerson RN) ketorolac (TORADOL) injection 15 mg (COMPLETED) 15 mg, IntraVENous, Once, 1 dose, On Tue11/13/24 at 2300, Do not administer for more than 5 days * 2308 (Given - Provider: Angel Luis Us RN) metoprolol succinate (TOPROL XL) extended release tablet 12.5 mg 12.5 mg, Oral, 2 TIMES DAILY, First dose on Tue11/14/24 at 0215, Until Discontinued * 0237 (Not Given - Provider: Juan Robles RN - Reason: Patient/family refused - Comment: already taken) * 0829 (Given - Provider: Cathie Koch RN) * 2100 (Due) morphine injection 4 mg (COMPLETED) 4 mg, IntraVENous, ONCE, 1 dose, On Tue11/13/24 at 2300, If oral and IV narcotics ordered, use oralfirst and only use IV if oral is ineffective or cannot take oral. Do Not give oral and IV within 1 hour of each other unless specifically ordered. * 230 (Given - Provider: Angel Luis Us RN) sodium chloride 0.9 % bolus 500 mL (COMPLETED) 500 mL (6.35 mL/kg), IntraVENous, at 247.9 mL/hr, Administer over 121 Minutes, ONCE, On Tue11/14/24at 0915, For 1 dose * 0859 (New Bag - Provider: Cathie Koch RN) * 1113 (Stopped - Provider: Cathie Koch RN) sodium chloride flush 0.9 % injection 5-40 mL 5-40 mL, IntraVENous, EVERY 12 HOURS SCHEDULED (2 times per day), First dose on Tue11/14/24 at 0900, Until Discontinued, For Line Patency: Peripheral IV = 5 mL; Midline or Central Line = 10 mL/lumen.If following IV push medication, administer flush at same rate as the IV push. Flush volume is determined by type of infusion therapy being given. For non-viscous solutions use: Peripheral IV = 5 mL Midline or Central Line = 10 mL/lumen For viscous solutions (i.e. blood components, parenteral nutrition, contrast media, or after obtaining blood sample) use: Peripheral IV = 10 mL Midline or CentralLine = 20 mL/lumen * 0829 (Given - Provider: Cathie Koch RN) * 2100 (Due) ticagrelor (BRILINTA) tablet 90 mg 90 mg, Oral, 2 TIMES DAILY, First dose on Tue11/14/24 at 0215, Until Discontinued * 0237 (Not Given - Provider: Juan Robles RN - Reason: Patient/family refused - Comment: already taken) * 0829 (Given - Provider: Cathie Koch RN) * 2100 (Due) vitamin B-12 (CYANOCOBALAMIN) tablet 500 mcg 500 mcg, Oral, DAILY, First dose on Tue11/14/24 at 0900, Until Discontinued * 0829 (Given - Provider: Cathie Koch RN) Medication Order11/12//// 0.9 % sodium chloride infusion IntraVENous, at 5-250 mL/hr, PRN, if patient receiving piggyback infusions and maintenance fluids are not ordered, Starting on Tue11/14/24 at 0051, For piggyback infusion, administer at same rate as piggyback for a total of 25 mL. Enter 25 mL into dose field and piggyback rate into rate field of order. If piggyback is infusing at a rate less than 100 mL/hr, enter 25 mL into dose field and 100 mL/hr into rate field of order. acetaminophen (TYLENOL) suppository 650 mg(Linked Group 1) 650 mg, Rectal, EVERY 6 HOURS PRN, Starting on Tue11/14/24 at 0051, Until Discontinued, Pain Mild (1-3) OR per patient request for pain score (4-10), Fever, For temp greater than 100.4 F (38 C), Administer if oral route cannot be used. acetaminophen (TYLENOL) tablet 650 mg(Linked Group 1) 650 mg, Oral, EVERY 6 HOURS PRN, Starting on Tue11/14/24 at 0051, Until Discontinued, Pain Mild (1-3) OR per patient request for pain score (4-10), Fever, For temp greater than 100.4 F (38 C), Maximum dose of acetaminophen is 4000 mg from all sources in 24 hours. morphine injection 4 mg 4 mg, IntraVENous, EVERY 4 HOURS PRN, Starting on Tue11/14/24 at 0239, Until Discontinued, Pain Severe (7-10), Pain Moderate (4-6) OR per patient request for pain score (7-10), If oral and IV narcotics ordered, use oral first and only use IV if oral is ineffective or cannot take oral. Do Not give oral and IV within 1 hour of each other unless specifically ordered. * 0316 (Given - Provider: Juan Robles RN) * 0828 (Given - Provider: Cathie Koch RN) sodium chloride flush 0.9 % injection 5-40 mL 5-40 mL, IntraVENous, PRN, Starting on Tue11/14/24 at 0051, Until Discontinued, Line Care, After every IV line use, For Line Patency: Peripheral IV = 5 mL; Midline or Central Line = 10 mL/lumen. If following IV push medication, administer flush at same rate as the IV push. Flush volume is determined by type of infusion therapy being given. For non-viscous solutions use: Peripheral IV = 5 mL Midline or Central Line = 10 mL/lumen For viscous solutions (i.e. blood components, parenteral nutrition,contrast media, or after obtaining blood sample) use: Peripheral IV = 10 mL Midline or Central Line= 20 mL/lumen Order Group 1: acetaminophen (TYLENOL) tablet 650 mgJump to med 650 mg, Oral, EVERY 6 HOURS PRN, Starting on Tue11/14/24 at 0051, Until Discontinued, Pain Mild (1-3) OR per patient request for pain score (4-10), Fever, For temp greater than 100.4 F (38 C), Maximum dose of acetaminophen is 4000 mg from all sources in 24 hours. Or acetaminophen (TYLENOL) suppository 650 mgJump to med 650 mg, Rectal, EVERY 6 HOURS PRN, Starting on Tue11/14/24 at 0051, Until Discontinued, Pain Mild (1-3) OR per patient request for pain score (4-10), Fever, For temp greater than 100.4 F (38 C), Administer if oral route cannot be used. Dialysis Access Sites (unrec ognized section and content) TypeStatusLocationPlacement DateRemoval DateHemodialysis Catheter Triple 10/05/23 Uncuffed Left Internal JugularInactiveLeft Neck (side) - Anterior TypeStatusLocationPlacement DateRemoval DateHemodialysis Catheter Triple 10/05/23 Uncuffed Left Internal JugularInactiveLeft Neck (side) - [id number] FOR RECORDS PERTAINING TO PATIENTS WHO ARE [...] BE BASED ON THE PRIMARY CLINICAL RECORDS. [facility] [employer] provides no warranty or guarantee of the accuracy or completeness of information in this document.
== END 2025-01-23 09:35 | disposition home or self-care (01) ==
LOC: RAD 09:34
PROVIDERS: Visit Provider Internal Medicine Cardiovascular Disease
DX: M48.54XA Collapsed vertebra, not elsewhere classified, thoracic region, initial encounter for fracture (principal); Z95.2 Presence of prosthetic heart valve
CPT/HCPCS: 71046